=== PATIENT | female | born 1970 | race Caucasian/White ===

== ENCOUNTER 2020-07-16 06:57 | Outpatient (NON) | payer MEDICARE, MEDICAID, SELFPAY ==
[2020-07-16 16:58] LABS: Influenza Control Positive
[2020-07-17 12:24] LABS: SARS-CoV-2 RNA PCR Negative
== END 2020-07-16 06:58 ==
LOC: ANHCOVIDDT 07:11
PROVIDERS: PCP Family Medicine; Visit Provider Nurse Practitioner Family
DX: R68.89 Other general symptoms and signs (principal); R09.81 Nasal congestion; Z20.828 Contact with and (suspected) exposure to other viral communicable diseases
CPT/HCPCS: 87635; 87804; C9803; U0003

== ENCOUNTER → 2021-02-01 01:17 | Outpatient (CLI) | payer MEDICARE, MEDICAID, SELFPAY ==
[2021-02-03 15:56] LABS: SARS-CoV-2 RNA PCR Positive
== END ==
PROVIDERS: PCP Family Medicine; Visit Provider Surgery Plastic and Reconstructive Surgery
DX: U07.1 COVID-19 (principal)
CPT/HCPCS: C9803; U0003; U0005

== ENCOUNTER 2021-02-07 19:06 | Inpatient (IN) | payer MEDICARE, MEDICAID, SELFPAY ==
[2021-02-07] VITALS (14 sets, daily range): BP systolic 97–114; BP diastolic 56–76; PULSE 74–102; RESP 16–30; TEMP 36.4–39.2; O2SAT 90–93; BMI 30.7
--- NOTE | ~2021-02-07 | CT_ITS ---
EXAMINATION: CTA chest PE protocol DATE: 02/07/2021 22:13 CDT INDICATION: Covid positive. Dyspnea. Cough. Congestion. TECHNIQUE: Computed tomographic angiography (CTA) of the chest was performed with 100 mL Omnipaque-35 0 intravenous contrast. The dose-length product was 325.49 mGy-cm. Maximum intensity projection 3D-re constructions of the aorta and other arteries were constructed by the technologist on a separate work station. Automated exposure control and iterative reconstruction technique were employed. COMPARISON: None. FINDINGS: Cardiomegaly. No significant pleural or pericardial effusion. No large central pulmonary em bolism. Evaluation of peripheral pulmonary arteries limited by extensive airspace disease, contrast t iming and motion artifact. No thoracic lymphadenopathy. Upper abdomen is unremarkable. Extensive patc hy groundglass opacification throughout both lungs, most likely pneumonia given the clinical history. There are spinal rods in the thoracic spine. There is a burst fracture of a mid thoracic vertebra, l ikely chronic. IMPRESSION: 1. No large central pulmonary embolism. Evaluation of the peripheral pulmonary arteries limited. 2: Extensive bilateral groundglass opacification and airspace consolidation, consistent with pneumon ia. 3: Cardiomegaly. Reviewed, dictated and finalized at location A. IMPRESSION: 1. No large central pulmonary embolism. Evaluation of the peripheral pulmonary arteries limited. 2: Extensive bilateral groundglass opacification and airspace consolidation, c onsistent with pneumonia. 3: Cardiomegaly.
--- NOTE | ~2021-02-07 | XR_ITS ---
XR chest 1V portable 02/07/2021 19:48 Indication: Shortness of breath, cough. Covid positive. Low oxygen saturation. Procedure: AP portable chest Comparison: Comparison to multiple prior studies sequentially, with oldest reviewed study dated 12/2014. Findings: Diffuse bilateral airspace disease. Cardiomegaly. No significant effusion or pneumothorax. There are Bolton rods of the thoracic spine. No pneumothorax. No acute osseous abnormality. Impression: 1: Diffuse bilateral airspace disease which may represent pneumonia or edema. Reviewed, dictated and finalized at location A. Impression: 1: Diffuse bilateral airspace disease which may represent pneumonia or edema.
--- NOTE | ~2021-02-07 | XR_ITS ---
EXAMINATION: XR chest 1V portable INDICATION: Shortness of breath, COVID 19 TECHNIQUE: Portable AP chest at 0709 hours COMPARISON: 02/16/2021 FINDINGS: Diffuse airspace opacities persist in all lung zones with slight interval improvement. Ther e is no pleural effusion or pneumothorax. The cardiomediastinal silhouette is normal. Changes of cerv icothoracic fusion are noted. IMPRESSION: 1. Diffuse lung disease with interval improvement, consistent with pneumonia and/or pulmonary edema a nd/or acute respiratory distress syndrome (ARDS). Reviewed, dictated and finalized at location B. IMPRESSION: 1. Diffuse lung disease with interval improvement, consistent with pneumonia an d/or pulmonary edema and/or acute respiratory distress syndrome (ARDS).
--- NOTE | ~2021-02-07 | XR_ITS ---
EXAMINATION: XR chest 1V portable INDICATION: Shortness of breath TECHNIQUE: Portable AP chest at 0559 hours COMPARISON: 02/10/2021 FINDINGS: There are diffuse opacities throughout all lung zones which demonstrate interval worsening. No pleural effusion or pneumothorax is identified. The cardiomediastinal silhouette is stable. There is unchanged elevation of the left hemidiaphragm. There are changes of cervical through thoracic spi nal fusion. IMPRESSION: 1. Diffuse lung disease with interval worsening, consistent with pneumonia and/or pulmonary edema and /or acute respiratory distress syndrome (ARDS). Reviewed, dictated and finalized at location A. IMPRESSION: 1. Diffuse lung disease with interval worsening, consistent with pneumonia and/ or pulmonary edema and/or acute respiratory distress syndrome (ARDS).
--- NOTE | ~2021-02-07 | XR_ITS ---
EXAMINATION: XR chest 1V portable DATE: 02/10/2021 11:36 INDICATION: COVID positive TECHNIQUE: frontal view of the chest was obtained. COMPARISON: Chest radiograph dated 02/07/2021 FINDINGS: Unchanged elevation of the left hemidiaphragm. There are diffuse coarse reticular and mild patchy air space opacities throughout both lungs with lower lung predominance. No pneumothorax or pleural effusi on. Cardiomegaly. Instrumented posterior spinal fusion with bilateral vertical derek and pedicle screws extending from the lower thoracic spine and beyond the cephalad margin of the [id number] at the c ervicothoracic junction. There are also laminectomies and cerclage wires at the cervicothoracic junct ion. IMPRESSION: 1. Persistent diffuse bilateral interstitial and mild airspace opacities throughout both lungs which could represent COVID pneumonia, pulmonary edema or combination thereof. 2. Cardiomegaly. Reviewed, dictated and finalized at location A. IMPRESSION: 1. Persistent diffuse bilateral interstitial and mild airspace opacities throug hout both lungs which could represent COVID pneumonia, pulmonary edema or combi nation thereof. 2. Cardiomegaly.
--- NOTE | 2021-02-07 19:36 | ECG_ITS ---
Measurements Intervals Riva Rate: 87 P: 42 DE: 122 QRS: 41 QRSD: 105 T: 48 QT: 355 QTc: 427 Interpretive Statements SINUS RHYTHM EARLY PRECORDIAL R/S TRANSITION BORDERLINE ECG Electronically Signed On 02-08-2021 6:43:41 CDT by Prem Fairchild D.O.
--- NOTE | 2021-02-07 19:49 | ED.GENADULT ---
HPI - General Adult General Chief complaint: Upper Respiratory Infection Stated complaint: difficulty breathing Time Seen by Provider: 02/07/21 19:34 Source: RN notes reviewed History of Present Illness HPI narrative: Patient presents to emergency department from home via EMS for shortness of breath. Patient states that she began to feel short of breath yesterday states is progressively worsened and she has a home pulse ox that was noted to be in the 70s at home today patient states that she was possibly having a spot removed on her forehead and had a Covid test prior to this on 01 February and tested positive for Covid at that time she states she has not received any of the Covid vaccine she states that she began to run a fever today. Patient states shortness of breath is worse with movement she denies any chest pain abdominal pain nausea vomiting or any other symptoms Related Data Home Medications Medication Instructions Recorded Confirmed baclofen 20 mg tablet 20 mg PO TID tablet 06/22/19 01/15/21 gabapentin 300 mg capsule 300 mg PO TID 06/22/19 01/15/21 oxycodone myristate 9 mg capsule 9 mg PO BID 07/24/20 01/15/21 sprinkle extended release 12 hr(DON'T CRUSH) lubiprostone 24 mcg capsule 24 mcg PO BID 12/12/20 01/15/21 meloxicam 7.5 mg tablet 7.5 mg PO DAILY tablet 01/15/21 01/15/21 prazosin 1 mg capsule 1 mg PO DAILY cap 01/15/21 01/15/21 quetiapine 200 mg tablet 200 mg PO QHS tablet 01/15/21 01/15/21 Allergies Allergy/AdvReac Type Severity Reaction Status Date / Time amoxicillin Allergy Unknown Unknown Verified 02/05/21 15:29 codeine Allergy Unknown Unknown Verified 02/05/21 15:29 Penicillins Allergy Unknown RASH Verified 02/05/21 15:29 epinephrine AdvReac Unknown Other Verified 02/05/21 15:29 lidocaine AdvReac Other Verified 02/05/21 15:29 Review of Systems Review of Systems: Narrative: Gen.: Reports fever ENT: Denies congestion Respiratory: See HPI CV: Denies chest pain or palpitations GI: Denies abdominal pain nausea, emesis or diarrhea Musculoskeletal: Denies back pain or muscle pain Neuro: Denies numbness, tingling, weakness or focal weakness Skin: Denies rash Except as documented, all other systems reviewed and negative [facility] Past Medical History Medical History (Updated 02/07/21 @ 23:04 by Sanju Cho DO) BMI 31.0-31.9,adult BMI 32.0-32.9,adult BMI 33.0-33.9,adult BMI 34.0-34.9,adult Migraines Osteoarthritis of left hip Surgical History Surgical History History of knee surgery R - 2009 L - 2007 History of oral surgery 2013 History of spinal surgery 2012, 2014 Family History Family History Mother Hypertension Heart disease Grandparent Family history of lung cancer Father Family history of malignant neoplasm of thyroid Heart disease Family history of lung cancer Acute myocardial infarction Sibling No problems noted. 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 ABDOMINAL: Soft, nontender, nondistended, no rebound or
[2021-02-07] MEDS: ACETAMINOPHEN 500 MG TABLET 1000 MG PO (19:56)
[2021-02-07] MEDS: ALBUTEROL SULFATE (*SP) AEROSOL 1 PUFF 2 PUFF INHALATION (20:04)
[2021-02-07 20:19] LABS: Basophils Percent Auto 0.2 % (0.2-1.2); Hematocrit 41.2 % (37.0-47.0); Hemoglobin 13.4 g/dL (12.0-15.0); Immature Granulocyte Absolute 0.02 K/mm3 (0.00-0.031); Immature Granulocyte Percent A 0.5 % (0-0.5); Lymphocytes Absolute Auto 0.83 K/mm3 (0.9-3.2); Lymphocytes Percent Auto 20.6 % (18.3-44.2); Mean Corpuscular HGB Conc 32.5 g/dl (32-36); Mean Corpuscular Hemoglobin 31.2 pg (26-34); Mean Corpuscular Volume 95.8 fl (80-100); Mean Platelet Volume 9.2 fl (7.4-10.4); Monocytes Absolute Auto 0.3 K/mm3 (0.1-0.6); Monocytes Percent Auto 6.7 % (2.6-8.5); Neutrophils Absolute Auto 2.9 K/mm3 (1.3-6.7); Platelet Count Result 117 k/mm3 (150-375); Red Cell Distribution Width 13.2 % (11.5-14.5)
[2021-02-07] MEDS: DEXAMETHASONE SOD PHOS INJ 4 MG/ML VIAL 6 MG IV PUSH (20:21)
[2021-02-07 20:29] LABS: Lactic Acid Reflex 0.6 mmol/L (0.7-2.1)
[2021-02-07 20:30] LABS: Alanine Aminotransferase 18 U/L (4-35); Alkaline Phosphatase 62 U/L (38-126); Anion Gap 9 mmol/L (8-16); Aspartate Amino Transferase 41 U/L (14-36); Bilirubin,Total 0.3 mg/dL (0.2-1.3); Blood Urea Nitrogen 11 mg/dL (7-17); Calcium 8.5 mg/dL (8.4-10.2); Carbon Dioxide 24 mmol/L (22-30); Chloride 105 mmol/L (98-107); Estimated CRCL calculation 96 ml/min; Estimated Glomerular Filt Rate > 60; Glucose 89 mg/dL (65-105); Potassium 3.7 mmol/L (3.4-5.0); Sodium 138 mmol/L (137-145)
[2021-02-07 22:39] LABS: INR 1.1; Prothrombin Time 13.8 Seconds (11.1-14.7)
[2021-02-07 22:40] LABS: Partial Thromboplastin Time 28.9 SECONDS (22.3-36.8)
[2021-02-07 22:42] LABS: D Dimer 0.82 ug/mL (<0.48)
[2021-02-07 23:07] LABS: Alanine Aminotransferase 18 U/L (4-35)
--- NOTE | 2021-02-07 23:47 | ADMGEN ---
This patient, Lakeisha Alejandra, was admitted to [facility] Surg Room 330-01. Patient/family oriented to hospital policies and general routines including ID bracelet, bed and alarms, visiting hours, pain management, procedures, bathroom and other care routines, personal items, smoking policy, room service/diet, and visiting hours. Information on how to activate the Rapid Response Team has been discussed. Patient/Family are encouraged to report perceived risks to care and to ask questions if they do not understand what they are told or what they should do.
[2021-02-08] VITALS (11 sets, daily range): BP systolic 93–104; BP diastolic 53–70; PULSE 66–103; RESP 18–22; TEMP 36.2–37.4; O2SAT 89–97
[2021-02-08] MEDS: REMDESIVIR 200 MG/NS 250 ML 200 MG/250 ML BAG 250 MG IVPB (01:18)
[2021-02-08 06:14] LABS: Hematocrit 43.3 % (37.0-47.0); Immature Granulocyte Absolute 0.01 K/mm3 (0.00-0.031); Immature Granulocyte Percent A 0.3 % (0-0.5); Lymphocytes Absolute Auto 0.71 K/mm3 (0.9-3.2); Lymphocytes Percent Auto 21.8 % (18.3-44.2); Mean Corpuscular HGB Conc 32.3 g/dl (32-36); Mean Corpuscular Hemoglobin 31.5 pg (26-34); Mean Corpuscular Volume 97.5 fl (80-100); Mean Platelet Volume 9.2 fl (7.4-10.4); Monocytes Absolute Auto 0.2 K/mm3 (0.1-0.6); Monocytes Percent Auto 6.1 % (2.6-8.5); Neutrophils Absolute Auto 2.3 K/mm3 (1.3-6.7); Neutrophils Percent Auto 71.8 % (45.5-73.1); Platelet Count Result 118 k/mm3 (150-375); Red Blood Count 4.44 M/mm3 (4.2-5.4); Red Cell Distribution Width 13.3 % (11.5-14.5); White Blood Count 3.3 K/mm3 (4.5-10.0)
[2021-02-08 06:22] LABS: INR 1.1
[2021-02-08 06:55] LABS: Alanine Aminotransferase 18 U/L (4-35); Albumin Level 4.3 g/dL (3.5-5.1); Alkaline Phosphatase 56 U/L (38-126); Anion Gap 10 mmol/L (8-16); Aspartate Amino Transferase 38 U/L (14-36); Bilirubin,Total 0.3 mg/dL (0.2-1.3); Blood Urea Nitrogen 12 mg/dL (7-17); Calcium 9.2 mg/dL (8.4-10.2); Carbon Dioxide 27 mmol/L (22-30); Chloride 103 mmol/L (98-107); Estimated CRCL calculation 93 ml/min; Estimated Glomerular Filt Rate > 60; Glucose 118 mg/dL (65-105); Potassium 5.4 mmol/L (3.4-5.0); Sodium 140 mmol/L (137-145)
--- NOTE | 2021-02-08 09:46 | PM.IMHP ---
H&P: HPI History of Present Illness Date/Time: 02/08/21 09:46 Chief Complaint: SOB, hypoxia Narrative: Pt is a 50-year-old female with a history of COPD, chronic narcotic use due to chronic back pain, PTSD, and GERD who presented emergency room for shortness of breath and hypoxia noted at home. Patient states she had plans to have a procedure on Wednesday and had a routine COVID-19 test Wednesday02/01/21 which became positive. At that time she had no symptoms but developed symptoms on 02/06/21. she started having fevers up to 101, shortness of breath, cough and she had a pulse ox at home which was reading 79 which prompted her to come into the emergency room. She has been feeling malaise and worn out but is eating and drinking well. She has her taste and smell. She has not been around any sick contacts but was on vaccinated. She denies diarrhea, chest pain, nausea, vomiting, leg swelling, rashes or wounds. She has chronic back pain that she rates a 9/10 due to missing some of her medications. She says she has not had her narcotics in 24 hours. She has had narcotics on and off for 8 years due to her back pain. She has a history of a spinal fusion which causes her to have pain and is on disability for such. She was last on antibiotics last month due to pneumonia and has not had any since. Review of Systems Review of Systems: All systems reviewed & are unremarkable except as noted in HPI and below PMFSH Past Medical History Medical History (Updated 02/08/21 @ 10:18 by Ivon Prieto PA-C) BMI 31.0-31.9,adult BMI 32.0-32.9,adult BMI 33.0-33.9,adult BMI 34.0-34.9,adult COPD mixed type Migraines Osteoarthritis of left hip PTSD (post-traumatic stress disorder) Surgical History Surgical History History of knee surgery R - 2008 L - 2007 History of oral surgery 2013 History of spinal surgery 2012, 2014 Family History Family History Mother Hypertension Heart disease Grandparent Family history of lung cancer Father Family history of malignant neoplasm of thyroid Heart disease Family history of lung cancer Acute myocardial infarction Sibling No problems noted. Other Family history of arthritis Family history of cardiovascular disease Family history of malignant neoplasm of breast Unknown family medical history Social History Social History (Updated 02/08/21 @ 10:14 by Ivon Prieto PA-C) Social History: patient is a former smoker and quit 23 years ago after about 10 years of smoking. She does not do marijuana, drugs or alcohol. She is on disability due to her back pain. She would like her son, Armando, to be her surrogate decision maker if needed. She would like to be a full code. 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 by the patient): Female Spiritual care concerns: No Meds Home Medications and Allergies Home Medications Medication Instructions Recorded Confirmed Type baclofen 20 mg tablet 20 mg PO TID tablet 06/22/19 02/08/21 History gabapentin 300 mg capsule 300 mg PO TID 06/22/19 02/08/21 History inhalational spacing device #1 each 07/19/19 02/08/21 Rx bupropion HCl 150 mg 24 hr tablet, 150 mg PO QAM #1 tablet 11/02/19 02/08/21 Rx extended release escitalopram oxalate 20 mg tablet 20 mg PO DAILY #1 tablet 11/02/19 02/08/21 Rx spironolactone 25 mg tablet 25 mg PO DAILY #90 tablet 04/01/20 02/08/21 Rx oxycodone myristate 9 mg capsule 9 mg PO BID 07/24/20 02/08/21 History sprinkle extended release 12 hr(DON'T CRUSH)
[2021-02-08] MEDS: DEXAMETHASONE 2 MG TABLET 6 MG PO (09:59)
[2021-02-08] MEDS: BACLOFEN 10 MG TABLET 20 MG PO (10:00)
[2021-02-08] MEDS: ESCITALOPRAM OXALATE 10 MG TABLET 20 MG PO (11:35)
[2021-02-08] MEDS: ENOXAPARIN 40 MG/0.4 ML SYRINGE SUB-Q ×2 (11:35→22:09)
[2021-02-08] MEDS: PRAZOSIN HCL 1 MG CAPSULE PO (11:36)
[2021-02-08] MEDS: LUBIPROSTONE 24 MCG CAPSULE PO (11:36)
[2021-02-08] MEDS: FUROSEMIDE 20 MG TABLET PO (11:36)
[2021-02-08] MEDS: buPROPion HCL XL (24 HR) 150 MG TABCR PO (11:36)
[2021-02-08] MEDS: PANTOPRAZOLE 40 MG TABLET PO (11:37)
[2021-02-08] MEDS: FLUTICASONE/UMECLIDIN/VILANTER 200-62.5-25 MCG ELLIPTA 1 PUFF INHALATION (11:37)
[2021-02-08] MEDS: oxyCODONE HCL (*CRX) 5 MG TAB IR PO ×3 (11:50→23:35)
[2021-02-08 13:07] LABS: Anion Gap 11 mmol/L (8-16); Blood Urea Nitrogen 13 mg/dL (7-17); Calcium 9.6 mg/dL (8.4-10.2); Carbon Dioxide 24 mmol/L (22-30); Chloride 102 mmol/L (98-107); Estimated CRCL calculation 109 ml/min; Estimated Glomerular Filt Rate > 60; Glucose 106 mg/dL (65-105); Potassium 4.4 mmol/L (3.4-5.0); Sodium 137 mmol/L (137-145)
[2021-02-08] MEDS: GABAPENTIN 300 MG CAPSULE PO ×2 (14:42→22:08)
[2021-02-08] MEDS: SODIUM CHLORIDE 0.9% IV 250 ML 30 ML IV CONT (20:30)
[2021-02-08] MEDS: TUBING, BLOOD PLUM PUMP TUBING 1 EACH XX (20:35)
[2021-02-08] MEDS: REMDESIVIR 100 MG/NS 250 ML 100 MG/250 ML BAG 250 MG IVPB (22:08)
[2021-02-08] MEDS: QUEtiapine FUMARATE 100 MG TABLET 200 MG PO (22:09)
[2021-02-09] VITALS (8 sets, daily range): BP systolic 90–103; BP diastolic 54–68; PULSE 63–80; RESP 16–20; TEMP 36.1–37.2; O2SAT 88–96
--- NOTE | 2021-02-09 02:12 | PCRCNOTE ---
Pt refuses BiPAP at this time, she states she will have a family member bring her unit in tomorrow.
[2021-02-09] MEDS: oxyCODONE HCL (*CRX) 5 MG TAB IR PO ×4 (06:21→23:09)
[2021-02-09] MEDS: GABAPENTIN 300 MG CAPSULE PO ×3 (06:21→21:35)
[2021-02-09 07:23] LABS: Hematocrit 39.7 % (37.0-47.0); Hemoglobin 13.1 g/dL (12.0-15.0); Immature Platelet Fraction Pct 1.9 % (0.9-11.2); Mean Corpuscular Volume 93.9 fl (80-100); Mean Platelet Volume 9.6 fl (7.4-10.4); Platelet Count Result 141 k/mm3 (150-375); Red Blood Count 4.23 M/mm3 (4.2-5.4); Red Cell Distribution Width 13.2 % (11.5-14.5); White Blood Count 6.6 K/mm3 (4.5-10.0)
[2021-02-09 07:33] LABS: INR 1.1; Prothrombin Time 13.8 Seconds (11.1-14.7)
[2021-02-09 07:41] LABS: D Dimer 0.48 ug/mL (<0.48)
[2021-02-09 07:51] LABS: Alanine Aminotransferase 17 U/L (4-35); Albumin Level 3.9 g/dL (3.5-5.1); Alkaline Phosphatase 55 U/L (38-126); Anion Gap 9 mmol/L (8-16); Aspartate Amino Transferase 37 U/L (14-36); Bilirubin,Total 0.4 mg/dL (0.2-1.3); Blood Urea Nitrogen 14 mg/dL (7-17); CRP 5.2 mg/dL (<1.0); Calcium 8.9 mg/dL (8.4-10.2); Carbon Dioxide 25 mmol/L (22-30); Chloride 104 mmol/L (98-107); Estimated CRCL calculation 109 ml/min; Estimated Glomerular Filt Rate > 60; Glucose 82 mg/dL (65-105); Lactate Dehydrogenase 1120 U/L (313-618); Potassium 3.6 mmol/L (3.4-5.0); Sodium 138 mmol/L (137-145)
[2021-02-09] MEDS: DEXAMETHASONE 2 MG TABLET 6 MG PO (08:19)
[2021-02-09] MEDS: buPROPion HCL XL (24 HR) 150 MG TABCR PO (08:19)
[2021-02-09] MEDS: FUROSEMIDE 20 MG TABLET PO (08:19)
[2021-02-09] MEDS: ENOXAPARIN 40 MG/0.4 ML SYRINGE SUB-Q ×2 (08:20→21:36)
[2021-02-09] MEDS: ESCITALOPRAM OXALATE 10 MG TABLET 20 MG PO (08:20)
[2021-02-09] MEDS: PRAZOSIN HCL 1 MG CAPSULE PO (08:21)
[2021-02-09] MEDS: PANTOPRAZOLE 40 MG TABLET PO (08:21)
[2021-02-09] MEDS: FLUTICASONE/UMECLIDIN/VILANTER 200-62.5-25 MCG ELLIPTA 1 PUFF INHALATION (08:23)
[2021-02-09] MEDS: SUMAtriptan SUCCINATE 25 MG TABLET 50 MG PO (11:00)
--- NOTE | 2021-02-09 14:10 | PM.IMPN ---
Progress Note: A&P Assessment and Plan (1) Pneumonia due to COVID-19 virus: Code(s): U07.1 - COVID-19; J12.82 - Pneumonia due to coronavirus disease 2019 Status: Acute Assessment and Plan: Pt tested positive for COVID 02/01/21 as a routine screening for a procedure and then began feeling SOB 02/06/21 -Will continue remdesivir, dexamethasone, and lovenox - she is currently on 7 L high-flow satting 90%. -Continue o2 for sats <90 as well as albuterol - convalescent plasma given 02/08/21 -Pt unvaccinated -CTA showing bilateral PNA, no PE -Monitor inflammatory markers - antibiotics stopped, no signs of bacterial PNA and pt just had Levaquin last month (2) Acute respiratory failure with hypoxia: Code(s): J96.01 - Acute respiratory failure with hypoxia Status: Acute Assessment and Plan: 2/2 to above -continue o2 (3) Hyperkalemia: Code(s): E87.5 - Hyperkalemia Status: Acute Assessment and Plan: resolved -hold spironolactone and daily potassium -tele discontinued (4) Transaminitis: Code(s): R74.01 - Elevation of levels of liver transaminase levels Status: Acute Assessment and Plan: Likely due to COVID -monitor while on remdesivir (5) Leukopenia: Code(s): D72.819 - Decreased white blood cell count, unspecified Status: Acute Assessment and Plan: 2/2 to above -monitor (6) Chronic narcotic use: Code(s): F11.90 - Opioid use, unspecified, uncomplicated Status: Acute Assessment and Plan: Pt taxes Xtampza which is equivlent to 5mg Oxycodone IR Q6 hours for her chronic pack pain -Continue with that -provide narcan PRN (7) Osteoma of face: Code(s): D16.4 - Benign neoplasm of bones of skull and face Status: Acute Assessment and Plan: f/u with Dr. Varner (8) COPD mixed type: Code(s): J44.9 - Chronic obstructive pulmonary disease, unspecified Status: Acute Assessment and Plan: With exacerbation -Continue with trelegy, PRN albuterol and steroids (9) Cardiomegaly: Code(s): I51.7 - Cardiomegaly Status: Acute Assessment and Plan: Noted on imaging, no signs of active CHF -f/u with pcp for echo if she hasn't had one recently (10) Hypotension: Code(s): I95.9 - Hypotension, unspecified Status: Acute Assessment and Plan: last blood pressure 90/40 but patient feeling much better than yesterday. With her having COVID, I want to avoid ARDS some going to hold off on fluids at this time. If she becomes symptomatic or drops lower, we could start fluids then. She also is on narcotics which are chronic for her. I don't think this indicates worsening infection. She also runs on the lower end. Will continue to monitor Time Spent With Patient Time with patient: 25 - 35 minutes Subjective Date/time seen: 02/09/21 14:10 Interval history: Pt is a 50 y/o female here for COVID PNA. Patient was seen today states she feels better today than she did yesterday. She said her cough has improved and she is coughing stuff up now which makes her feel better. She has no shortness of breath at rest but has not really moved very much. She has no nausea or vomiting and has not had diarrhea today which is an improvement. she has no chest pain Review of Systems Review of Systems: All systems reviewed & are unremarkable except as noted in HPI and below Exam Narrative: Exam Narrative: General:Well developed well nourished patient HEENT: Normocephalic, atraumatic, PERRL, Sclerae anicteric, oral mucosa moist. NC applied Neck: Supple Resp: CTA, no wheezing or ronchi. no conversational dyspnea or retractions Heart: RRR with no murmurs. telemetry shows normal sinus rhythm Abd: Soft, nontender. No pain to palpation. Positive bowel sounds Skin: Warm and dry Extremities: No swelling, erythema or pain to palpation
[2021-02-09] MEDS: BACLOFEN 10 MG TABLET 20 MG PO (14:57)
[2021-02-09 15:37] LABS: Alveolar/Arterial O2 Gradient 474.9 mmHg; Carboxyhemoglobin 0.2 % THb (0-2.0); Fractional Inspired Oxygen 80 %; HCO3 ABG 25.4 mEq/l (22.0-26.0); Methemoglobin ABG 0.4 %THb (0-1.5); Oxygen Content ABG 18.7 %vol (16.0-22.0); Oxygen Saturation ABG 91.8 % (95.0-100.0); Oxyhemoglobin 90.7 % THb (90.0-100.0); PCO2 ABG 35.9 mmHg (35.0-45.0); PO2 ABG 57.8 mmHg (80.0-100.0); PO2 FiO2 Ratio Arterial Blood 0.72 %; Reduced Hemoglobin 8.7 %THb (0-5.0); Total Hemoglobin 14.7 g/dL (12.0-18.0); pH ABG 7.468 (7.350-7.450)
[2021-02-09 15:38] LABS: Device HIGH FLOW NASAL CANN; Modified Allen's Test Pass; Site Drawn RIGHT RADIAL
[2021-02-09] MEDS: QUEtiapine FUMARATE 100 MG TABLET 200 MG PO (21:35)
[2021-02-09] MEDS: REMDESIVIR 100 MG/NS 250 ML 100 MG/250 ML BAG 250 MG IVPB (21:36)
--- NOTE | 2021-02-09 23:49 | PCRCNOTE ---
Pt placed on Vision CPAP 7, Fi02 80%, sp02 94%, due to increased oxygen demand while on 15 liters HFNC. RT spot checked pt during CPAP rounds, pt found on HFNC 15 L, Sp02 84%. Pt stated she wears CPAP at home setting unknown without oxygen.RT notified RN due increased oxygen demand. MD called twice. animal control supervisor contacted about pt increased oxygen demand.
[2021-02-10] VITALS (24 sets, daily range): BP systolic 94–105; BP diastolic 49–63; PULSE 57–97; RESP 16–22; TEMP 36.1–36.6; O2SAT 90–99
[2021-02-10 05:13] LABS: Hematocrit 39.2 % (37.0-47.0); Mean Corpuscular HGB Conc 33.2 g/dl (32-36); Mean Corpuscular Hemoglobin 31.3 pg (26-34); Mean Corpuscular Volume 94.5 fl (80-100); Mean Platelet Volume 9.6 fl (7.4-10.4); Platelet Count Result 154 k/mm3 (150-375); Red Blood Count 4.15 M/mm3 (4.2-5.4); White Blood Count 7.4 K/mm3 (4.5-10.0)
[2021-02-10 05:24] LABS: Alanine Aminotransferase 20 U/L (4-35); Anion Gap 7 mmol/L (8-16); Blood Urea Nitrogen 12 mg/dL (7-17); Calcium 8.7 mg/dL (8.4-10.2); Carbon Dioxide 28 mmol/L (22-30); Chloride 106 mmol/L (98-107); Estimated CRCL calculation 109 ml/min; Estimated Glomerular Filt Rate > 60; Glucose 86 mg/dL (65-105); Potassium 3.5 mmol/L (3.4-5.0); Sodium 141 mmol/L (137-145)
[2021-02-10 05:28] LABS: INR 1.1; Prothrombin Time 14.3 Seconds (11.1-14.7)
[2021-02-10] MEDS: GABAPENTIN 300 MG CAPSULE PO ×3 (06:32→20:26)
[2021-02-10] MEDS: oxyCODONE HCL (*CRX) 5 MG TAB IR PO ×4 (06:32→23:50)
[2021-02-10] MEDS: IPRATROPIUM BR 0.02% INH SOLN 0.5 MG/2.5 ML VIAL INHALATION ×3 (08:20→20:30)
[2021-02-10] MEDS: FLUTICASONE/UMECLIDIN/VILANTER 200-62.5-25 MCG ELLIPTA 1 PUFF INHALATION (08:20)
[2021-02-10] MEDS: ALBUTEROL SULFATE NEB 2.5 MG/0.5 ML INH 5 MG INHALATION ×3 (08:20→20:29)
[2021-02-10] MEDS: PANTOPRAZOLE 40 MG TABLET PO (09:17)
[2021-02-10] MEDS: ENOXAPARIN 40 MG/0.4 ML SYRINGE SUB-Q ×2 (09:17→20:26)
[2021-02-10] MEDS: PRAZOSIN HCL 1 MG CAPSULE PO (09:17)
[2021-02-10] MEDS: LUBIPROSTONE 24 MCG CAPSULE PO ×2 (09:17→16:48)
[2021-02-10] MEDS: DEXAMETHASONE 2 MG TABLET 6 MG PO (09:17)
[2021-02-10] MEDS: ESCITALOPRAM OXALATE 10 MG TABLET 20 MG PO (09:17)
[2021-02-10] MEDS: buPROPion HCL XL (24 HR) 150 MG TABCR PO (09:17)
[2021-02-10] MEDS: FUROSEMIDE 20 MG TABLET PO (09:17)
[2021-02-10 10:46] LABS: Alveolar/Arterial O2 Gradient 419.2 mmHg; Carboxyhemoglobin 0.2 % THb (0-2.0); Fractional Inspired Oxygen 80 %; HCO3 ABG 25.8 mEq/l (22.0-26.0); Methemoglobin ABG 0.4 %THb (0-1.5); Oxygen Content ABG 19.5 %vol (16.0-22.0); Oxyhemoglobin 96.9 % THb (90.0-100.0); PCO2 ABG 41.5 mmHg (35.0-45.0); PO2 ABG 107.6 mmHg (80.0-100.0); PO2 FiO2 Ratio Arterial Blood 1.35 %; Reduced Hemoglobin 2.5 %THb (0-5.0); Total Hemoglobin 14.2 g/dL (12.0-18.0); pH ABG 7.411 (7.350-7.450)
[2021-02-10 10:47] LABS: Modified Allen's Test Pass; Site Drawn LEFT RADIAL
[2021-02-10] MEDS: SUMAtriptan SUCCINATE 25 MG TABLET 50 MG PO (10:48)
[2021-02-10 10:51] LABS: Device NON-INVASIVE VENT; Expiratory Pressure 7 cmH2O
--- NOTE | 2021-02-10 17:16 | PM.IMPN ---
Progress Note: A&P Assessment and Plan (1) Pneumonia due to COVID-19 virus: Code(s): U07.1 - COVID-19; J12.82 - Pneumonia due to coronavirus disease 2019 Status: Acute Assessment and Plan: Pt tested positive for COVID 02/01/21 as a routine screening for a procedure and then began feeling SOB 02/06/21 -Will continue remdesivir, dexamethasone, and lovenox - she is utilizing her cpap and at 93%-100% -abg today shows no hypoxia this AM and was 80%Fio2. She was decreased to 60% off and I spoke with respiratory who is going to continue to wean. -Continue o2 for sats <90 as well as albuterol - convalescent plasma given 02/08/21 -Pt unvaccinated -CTA showing bilateral PNA, no PE -CXR 02/10/21 showing diffuse airpace dz likely COVID -Monitor inflammatory markers - antibiotics stopped, no signs of bacterial PNA and pt just had Levaquin last month (2) Acute respiratory failure with hypoxia: Code(s): J96.01 - Acute respiratory failure with hypoxia Status: Acute Assessment and Plan: 2/2 to above -continue o2 (3) Hyperkalemia: Code(s): E87.5 - Hyperkalemia Status: Acute Assessment and Plan: resolved -hold spironolactone and daily potassium (4) Transaminitis: Code(s): R74.01 - Elevation of levels of liver transaminase levels Status: Acute Assessment and Plan: trending down, likely due to COVID -monitor while on remdesivir (5) Leukopenia: Code(s): D72.819 - Decreased white blood cell count, unspecified Status: Acute Assessment and Plan: resolved (likely due to steroids) -suspect due to viral infection -monitor (6) Chronic narcotic use: Code(s): F11.90 - Opioid use, unspecified, uncomplicated Status: Acute Assessment and Plan: Pt taxes Xtampza which is equivlent to 5mg Oxycodone IR Q6 hours for her chronic pack pain -Continue with that -provide narcan PRN (7) Osteoma of face: Code(s): D16.4 - Benign neoplasm of bones of skull and face Status: Acute Assessment and Plan: f/u with Dr. Varner (8) COPD mixed type: Code(s): J44.9 - Chronic obstructive pulmonary disease, unspecified Status: Acute Assessment and Plan: With exacerbation -Continue with trelegy, PRN albuterol and steroids (9) Cardiomegaly: Code(s): I51.7 - Cardiomegaly Status: Acute Assessment and Plan: Noted on imaging, no signs of active CHF -f/u with pcp for echo if she hasn't had one recently (10) Hypotension: Code(s): I95.9 - Hypotension, unspecified Status: Acute Assessment and Plan: Improving, last bp 102/63. No patient complaints. With her having COVID, I want to avoid ARDS, hold off on fluids at this time. If she becomes symptomatic or drops lower, we could start fluids then. She is also on narcotics which are chronic for her. I don't think this indicates worsening infection. She also runs on the lower end. Will continue to monitor Subjective Date/time seen: 02/10/21 17:16 Interval history: Pt is a 50 y/o female here for COVID PNA. Patient was seen today states she feels fine. She only has SOB when she is moving. She said her cough has improved and she is coughing stuff up now which makes her feel better. She has no nausea or vomiting. Diarrhea improved. she has no chest pain Exam Narrative: Exam Narrative: General:Well developed well nourished patient HEENT: Normocephalic, atraumatic, PERRL, Sclerae anicteric, oral mucosa moist. bipap applied Neck: Supple Resp: Crackles at baseline. no wheezing or rhonchi. no conversational dyspnea or retractions Heart: RRR with no murmurs. telemetry shows normal sinus rhythm Abd: Soft, nontender. No pain to palpation. Positive bowel sounds Skin: Warm and dry Extremities: No swelling, erythema or pain to palpation Neuro: Alert and Oriented x4 . CN 2-12 intact. No foc
[2021-02-10] MEDS: QUEtiapine FUMARATE 100 MG TABLET 200 MG PO (20:25)
[2021-02-10] MEDS: REMDESIVIR 100 MG/NS 250 ML 100 MG/250 ML BAG 250 MG IVPB (20:26)
[2021-02-11] VITALS (25 sets, daily range): BP systolic 91–106; BP diastolic 46–66; PULSE 56–95; RESP 18–29; TEMP 36.1–36.9; O2SAT 87–95
[2021-02-11] MEDS: ALBUTEROL SULFATE NEB 2.5 MG/0.5 ML INH 5 MG INHALATION ×4 (02:59→20:59)
[2021-02-11] MEDS: IPRATROPIUM BR 0.02% INH SOLN 0.5 MG/2.5 ML VIAL INHALATION ×4 (03:00→20:59)
[2021-02-11 05:04] LABS: Hematocrit 39.6 % (37.0-47.0); Hemoglobin 13.2 g/dL (12.0-15.0); Immature Granulocyte Absolute 0.02 K/mm3 (0.00-0.031); Immature Granulocyte Percent A 0.3 % (0-0.5); Lymphocytes Absolute Auto 0.97 K/mm3 (0.9-3.2); Lymphocytes Percent Auto 15.8 % (18.3-44.2); Mean Corpuscular HGB Conc 33.3 g/dl (32-36); Mean Corpuscular Hemoglobin 31.7 pg (26-34); Mean Platelet Volume 9.3 fl (7.4-10.4); Monocytes Absolute Auto 0.4 K/mm3 (0.1-0.6); Monocytes Percent Auto 6.7 % (2.6-8.5); Neutrophils Absolute Auto 4.7 K/mm3 (1.3-6.7); Neutrophils Percent Auto 77.2 % (45.5-73.1); Platelet Count Result 171 k/mm3 (150-375); Red Blood Count 4.17 M/mm3 (4.2-5.4); Red Cell Distribution Width 12.9 % (11.5-14.5); White Blood Count 6.1 K/mm3 (4.5-10.0)
[2021-02-11 05:25] LABS: Alanine Aminotransferase 20 U/L (4-35); Albumin Level 3.7 g/dL (3.5-5.1); Alkaline Phosphatase 55 U/L (38-126); Anion Gap 7 mmol/L (8-16); Aspartate Amino Transferase 31 U/L (14-36); Bilirubin,Total 0.6 mg/dL (0.2-1.3); Blood Urea Nitrogen 13 mg/dL (7-17); Carbon Dioxide 30 mmol/L (22-30); Chloride 101 mmol/L (98-107); Estimated CRCL calculation 109 ml/min; Estimated Glomerular Filt Rate > 60; Glucose 108 mg/dL (65-105); Lactate Dehydrogenase 1453 U/L (313-618); Potassium 3.6 mmol/L (3.4-5.0); Sodium 138 mmol/L (137-145)
[2021-02-11 05:38] LABS: CRP 13.3 mg/dL (<1.0); INR 1.1; Prothrombin Time 14.2 Seconds (11.1-14.7)
[2021-02-11] MEDS: GABAPENTIN 300 MG CAPSULE PO ×3 (06:11→20:55)
[2021-02-11] MEDS: oxyCODONE HCL (*CRX) 5 MG TAB IR PO ×3 (06:11→17:28)
[2021-02-11] MEDS: PANTOPRAZOLE 40 MG TABLET PO (09:08)
[2021-02-11] MEDS: buPROPion HCL XL (24 HR) 150 MG TABCR PO (09:08)
[2021-02-11] MEDS: DEXAMETHASONE 2 MG TABLET 6 MG PO (09:08)
[2021-02-11] MEDS: FUROSEMIDE 20 MG TABLET PO (09:08)
[2021-02-11] MEDS: PRAZOSIN HCL 1 MG CAPSULE PO (09:08)
[2021-02-11] MEDS: ESCITALOPRAM OXALATE 10 MG TABLET 20 MG PO (09:08)
[2021-02-11] MEDS: LUBIPROSTONE 24 MCG CAPSULE PO (09:09)
[2021-02-11] MEDS: ENOXAPARIN 40 MG/0.4 ML SYRINGE SUB-Q ×2 (09:09→20:55)
--- NOTE | 2021-02-11 11:19 | PM.IMPN ---
Progress Note: A&P Assessment and Plan (1) Pneumonia due to COVID-19 virus: Code(s): U07.1 - COVID-19; J12.82 - Pneumonia due to coronavirus disease 2019 Status: Acute Assessment and Plan: Pt tested positive for COVID 02/01/21 as a routine screening for a procedure and then began feeling SOB 02/06/21 -Will continue remdesivir, dexamethasone, and lovenox - she is utilizing her cpap and at 93%-100% -repeat abg, wean o2 depending on that -Continue o2 for sats <90 as well as albuterol - convalescent plasma given 02/08/21 -Pt unvaccinated -CTA showing bilateral PNA, no PE -CXR 02/10/21 showing diffuse airspace dz likely COVID -Monitor inflammatory markers - antibiotics stopped, no signs of bacterial PNA and pt just had Levaquin last month (2) Acute respiratory failure with hypoxia: Code(s): J96.01 - Acute respiratory failure with hypoxia Status: Acute Assessment and Plan: 2/2 to above -continue o2 (3) Hyperkalemia: Code(s): E87.5 - Hyperkalemia Status: Acute Assessment and Plan: resolved -hold spironolactone and daily potassium (4) Transaminitis: Code(s): R74.01 - Elevation of levels of liver transaminase levels Status: Acute Assessment and Plan: Normal 02/11/21 -monitor while on remdesivir (5) Leukopenia: Code(s): D72.819 - Decreased white blood cell count, unspecified Status: Acute Assessment and Plan: resolved (likely due to steroids) -suspect due to viral infection -monitor (6) Chronic narcotic use: Code(s): F11.90 - Opioid use, unspecified, uncomplicated Status: Acute Assessment and Plan: Pt taxes Xtampza which is equivlent to 5mg Oxycodone IR Q6 hours for her chronic pack pain -Continue with that -provide narcan PRN (7) Osteoma of face: Code(s): D16.4 - Benign neoplasm of bones of skull and face Status: Acute Assessment and Plan: f/u with Dr. Varner (8) COPD mixed type: Code(s): J44.9 - Chronic obstructive pulmonary disease, unspecified Status: Acute Assessment and Plan: With exacerbation -Continue with trelegy, PRN albuterol and steroids (9) Cardiomegaly: Code(s): I51.7 - Cardiomegaly Status: Acute Assessment and Plan: Noted on imaging, no signs of active CHF -f/u with pcp for echo if she hasn't had one recently (10) Hypotension: Code(s): I95.9 - Hypotension, unspecified Status: Acute Assessment and Plan: Improving, last bp 91/51. No patient complaints. With her having COVID, I want to avoid ARDS, hold off on fluids at this time. If she becomes symptomatic or drops lower, we could start fluids then. She is also on narcotics which are chronic for her. I don't think this indicates worsening infection. She also runs on the lower end. Will continue to monitor Subjective Date/time seen: 02/11/21 11:19 Interval history: Pt is a 50 y/o female here for COVID PNA. Patient was seen today states she feels fine with no changes form yesterday. She only has SOB when she is moving but hasn't been out of bed today. She said her cough has improved and she is coughing stuff up now which makes her feel better. She has no nausea or vomiting. Diarrhea improved. she has no chest pain. Exam Narrative: Exam Narrative: General:Well developed well nourished patient HEENT: Normocephalic, atraumatic, PERRL, Sclerae anicteric, oral mucosa moist. bipap applied Neck: Supple Resp: Crackles at baseline. no wheezing or rhonchi. no conversational dyspnea or retractions Heart: RRR with no murmurs. telemetry shows normal sinus rhythm with o2 from 87-96% Abd: Soft, nontender. No pain to palpation. Positive bowel sounds Skin: Warm and dry Extremities: No swelling, erythema or pain to palpation Neuro: Alert and Oriented x4 . CN 2-12 intact. No focal neurological deficits. Objective Da
[2021-02-11 11:39] LABS: Alveolar/Arterial O2 Gradient 238.2 mmHg; Base Excess ABG 3.8 mEq/l (+/-2.0); Carboxyhemoglobin 0.2 % THb (0-2.0); Device NON-INVASIVE VENT; Fractional Inspired Oxygen 50 %; HCO3 ABG 28.1 mEq/l (22.0-26.0); Methemoglobin ABG 0.5 %THb (0-1.5); Modified Allen's Test Pass; Oxygen Content ABG 19.2 %vol (16.0-22.0); Oxygen Saturation ABG 95.2 % (95.0-100.0); PCO2 ABG 41.1 mmHg (35.0-45.0); PO2 ABG 72.1 mmHg (80.0-100.0); PO2 FiO2 Ratio Arterial Blood 1.44 %; Reduced Hemoglobin 5.3 %THb (0-5.0); Site Drawn RIGHT RADIAL; Total Hemoglobin 14.5 g/dL (12.0-18.0); pH ABG 7.453 (7.350-7.450)
[2021-02-11 11:40] LABS: Non-Invasive Expiratory Pressure 7 CMH2O
[2021-02-11] MEDS: REMDESIVIR 100 MG/NS 250 ML 100 MG/250 ML BAG 250 MG IVPB (20:51)
[2021-02-11] MEDS: QUEtiapine FUMARATE 100 MG TABLET 200 MG PO (20:55)
[2021-02-12] VITALS (29 sets, daily range): BP systolic 91–102; BP diastolic 48–59; PULSE 59–91; RESP 14–24; TEMP 36.5–36.8; O2SAT 88–98
[2021-02-12] MEDS: IPRATROPIUM BR 0.02% INH SOLN 0.5 MG/2.5 ML VIAL INHALATION ×4 (03:27→21:05)
[2021-02-12] MEDS: ALBUTEROL SULFATE NEB 2.5 MG/0.5 ML INH 5 MG INHALATION ×4 (03:27→21:04)
[2021-02-12 05:42] LABS: Anion Gap 7 mmol/L (8-16); Blood Urea Nitrogen 13 mg/dL (7-17); CRP 8.8 mg/dL (<1.0); Calcium 9.2 mg/dL (8.4-10.2); Carbon Dioxide 30 mmol/L (22-30); Chloride 101 mmol/L (98-107); Estimated CRCL calculation 93 ml/min; Estimated Glomerular Filt Rate > 60; Glucose 105 mg/dL (65-105); Potassium 3.4 mmol/L (3.4-5.0); Sodium 138 mmol/L (137-145)
[2021-02-12] MEDS: oxyCODONE HCL (*CRX) 5 MG TAB IR PO ×3 (07:27→17:30)
[2021-02-12] MEDS: GABAPENTIN 300 MG CAPSULE PO ×3 (07:27→21:42)
[2021-02-12] MEDS: PRAZOSIN HCL 1 MG CAPSULE PO (09:01)
[2021-02-12] MEDS: LUBIPROSTONE 24 MCG CAPSULE PO ×2 (09:01→17:30)
[2021-02-12] MEDS: FUROSEMIDE 20 MG TABLET PO (09:01)
[2021-02-12] MEDS: ENOXAPARIN 40 MG/0.4 ML SYRINGE SUB-Q ×2 (09:01→21:42)
[2021-02-12] MEDS: buPROPion HCL XL (24 HR) 150 MG TABCR PO (09:01)
[2021-02-12] MEDS: ESCITALOPRAM OXALATE 10 MG TABLET 20 MG PO (09:01)
[2021-02-12] MEDS: PANTOPRAZOLE 40 MG TABLET PO (09:01)
[2021-02-12] MEDS: DEXAMETHASONE 2 MG TABLET 6 MG PO (09:01)
--- NOTE | 2021-02-12 14:42 | PM.IMPN ---
Progress Note: A&P Assessment and Plan (1) Pneumonia due to COVID-19 virus: Code(s): U07.1 - COVID-19; J12.82 - Pneumonia due to coronavirus disease 2019 Status: Acute Assessment and Plan: Pt tested positive for COVID 02/01/21 as a routine screening for a procedure and then began feeling SOB 02/06/21 -Will continue dexamethasone and lovenox. she finished her initial 5 days of Remdesivir but since she continues to be on a high level of o2 so I will continue remdesivir at this time for 5 additional doses. - she is utilizing her cpap and at 93%-100% when needed and at night -Continue o2 for sats <90 as well as albuterol - convalescent plasma given 02/08/21 -Pt unvaccinated -CTA showing bilateral PNA, no PE -CXR 02/10/21 showing diffuse airspace dz likely COVID -Monitor inflammatory markers - antibiotics stopped, no signs of bacterial PNA and pt just had Levaquin last month (2) Acute respiratory failure with hypoxia: Code(s): J96.01 - Acute respiratory failure with hypoxia Status: Acute Assessment and Plan: 2/2 to above -continue o2 (3) Hyperkalemia: Code(s): E87.5 - Hyperkalemia Status: Acute Assessment and Plan: resolved -hold spironolactone and daily potassium (4) Transaminitis: Code(s): R74.01 - Elevation of levels of liver transaminase levels Status: Acute Assessment and Plan: Normal 02/11/21 -monitor while on remdesivir (5) Leukopenia: Code(s): D72.819 - Decreased white blood cell count, unspecified Status: Acute Assessment and Plan: resolved -suspect due to viral infection -monitor (6) Chronic narcotic use: Code(s): F11.90 - Opioid use, unspecified, uncomplicated Status: Acute Assessment and Plan: Pt taxes Xtampza which is equivlent to 5mg Oxycodone IR Q6 hours for her chronic pack pain -Continue with that -provide narcan PRN (7) Osteoma of face: Code(s): D16.4 - Benign neoplasm of bones of skull and face Status: Acute Assessment and Plan: f/u with Dr. Varner (8) COPD mixed type: Code(s): J44.9 - Chronic obstructive pulmonary disease, unspecified Status: Acute Assessment and Plan: With exacerbation -Continue with trelegy, PRN albuterol and steroids (9) Cardiomegaly: Code(s): I51.7 - Cardiomegaly Status: Acute Assessment and Plan: Noted on imaging, no signs of active CHF -f/u with pcp for echo if she hasn't had one recently (10) Hypotension: Code(s): I95.9 - Hypotension, unspecified Status: Acute Assessment and Plan: Improving, last bp 102/48. No patient complaints. With her having COVID, I want to avoid ARDS, hold off on fluids at this time. If she becomes symptomatic or drops lower, we could start fluids then. She is also on narcotics which are chronic for her. I don't think this indicates worsening infection. She also runs on the lower end. Will continue to monitor Subjective Date/time seen: 02/12/21 14:42 Interval history: Pt is a 50 y/o female here for COVID PNA. patient was seen today and does on high-flow and off the CPAP. She said she had a coughing spell earlier and it took a while to recover but overall is feeling okay. She still gets short of breath with long conversations and she has not been out of bed because she drops with any movement. Other than that, she feels fine. She had a slight headache this morning that is dissipating. She is eating and drinking well. No nausea, vomiting, fevers, chills, diarrhea or constipation. Exam Narrative: Exam Narrative: General:Well developed well nourished patient HEENT: Normocephalic, atraumatic, PERRL, Sclerae anicteric, oral mucosa moist. Neck: Supple Resp: Crackles at baseline. no wheezing or rhonchi. no conversational dyspnea or retractions Heart: RRR with no murmurs. telemetry shows normal s
[2021-02-12 17:14] LABS: INR 1.1
[2021-02-12] MEDS: QUEtiapine FUMARATE 100 MG TABLET 200 MG PO (21:42)
[2021-02-12] MEDS: REMDESIVIR 100 MG/NS 250 ML 100 MG/250 ML BAG 250 MG IVPB (21:43)
[2021-02-13] VITALS (24 sets, daily range): BP systolic 84–107; BP diastolic 45–60; PULSE 63–101; RESP 16–23; TEMP 36.1–37.1; O2SAT 90–97
[2021-02-13] MEDS: GABAPENTIN 300 MG CAPSULE PO ×3 (04:57→21:02)
[2021-02-13] MEDS: oxyCODONE HCL (*CRX) 5 MG TAB IR PO ×2 (04:57→17:13)
[2021-02-13 05:16] LABS: Hematocrit 39.5 % (37.0-47.0); Hemoglobin 13.1 g/dL (12.0-15.0); Mean Corpuscular HGB Conc 33.2 g/dl (32-36); Mean Corpuscular Hemoglobin 31.3 pg (26-34); Mean Corpuscular Volume 94.3 fl (80-100); Platelet Count Result 246 k/mm3 (150-375); Red Blood Count 4.19 M/mm3 (4.2-5.4); Red Cell Distribution Width 12.9 % (11.5-14.5); White Blood Count 7.4 K/mm3 (4.5-10.0)
[2021-02-13 05:33] LABS: INR 1.2; Prothrombin Time 14.6 Seconds (11.1-14.7)
[2021-02-13 05:49] LABS: Alanine Aminotransferase 15 U/L (4-35); Albumin Level 3.5 g/dL (3.5-5.1); Alkaline Phosphatase 58 U/L (38-126); Anion Gap 6 mmol/L (8-16); Aspartate Amino Transferase 19 U/L (14-36); Bilirubin,Total 0.5 mg/dL (0.2-1.3); Blood Urea Nitrogen 14 mg/dL (7-17); CRP 14.3 mg/dL (<1.0); Calcium 9.2 mg/dL (8.4-10.2); Carbon Dioxide 32 mmol/L (22-30); Chloride 101 mmol/L (98-107); Estimated CRCL calculation 93 ml/min; Estimated Glomerular Filt Rate > 60; Glucose 104 mg/dL (65-105); Lactate Dehydrogenase 1115 U/L (313-618); Potassium 3.6 mmol/L (3.4-5.0); Sodium 139 mmol/L (137-145)
[2021-02-13] MEDS: ALBUTEROL SULFATE NEB 2.5 MG/0.5 ML INH 5 MG INHALATION ×3 (08:58→21:38)
[2021-02-13] MEDS: IPRATROPIUM BR 0.02% INH SOLN 0.5 MG/2.5 ML VIAL INHALATION ×3 (08:58→21:38)
[2021-02-13] MEDS: FLUTICASONE/UMECLIDIN/VILANTER 200-62.5-25 MCG ELLIPTA 1 PUFF INHALATION (09:08)
[2021-02-13] MEDS: ENOXAPARIN 40 MG/0.4 ML SYRINGE SUB-Q ×2 (09:39→21:02)
[2021-02-13] MEDS: DEXAMETHASONE 2 MG TABLET 6 MG PO (09:39)
[2021-02-13] MEDS: ESCITALOPRAM OXALATE 10 MG TABLET 20 MG PO (09:39)
[2021-02-13] MEDS: FUROSEMIDE 20 MG TABLET PO (09:39)
[2021-02-13] MEDS: PRAZOSIN HCL 1 MG CAPSULE PO (09:39)
[2021-02-13] MEDS: PANTOPRAZOLE 40 MG TABLET PO (09:39)
[2021-02-13] MEDS: buPROPion HCL XL (24 HR) 150 MG TABCR PO (09:39)
--- NOTE | 2021-02-13 15:17 | PM.IMPN ---
Progress Note: A&P Assessment and Plan (1) Pneumonia due to COVID-19 virus: Code(s): U07.1 - COVID-19; J12.82 - Pneumonia due to coronavirus disease 2019 Status: Acute Assessment and Plan: still requiring great amount of supplemental oxygen BiPAP tonight Pt tested positive for COVID 02/01/21 as a routine screening for a procedure and then began feeling SOB 02/06/21 -Will continue dexamethasone and lovenox. she finished her initial 5 days of Remdesivir but since she continues to be on a high level of o2 so I will continue remdesivir at this time for 5 additional doses. - she is utilizing her cpap and at 93%-100% when needed and at night -Continue o2 for sats <90 as well as albuterol - convalescent plasma given 02/08/21 -Pt unvaccinated -CTA showing bilateral PNA, no PE -CXR 02/10/21 showing diffuse airspace dz likely COVID -Monitor inflammatory markers - antibiotics stopped, no signs of bacterial PNA and pt just had Levaquin last month (2) Acute respiratory failure with hypoxia: Code(s): J96.01 - Acute respiratory failure with hypoxia Status: Acute Assessment and Plan: 2/2 to above -continue o2 (3) Hyperkalemia: Code(s): E87.5 - Hyperkalemia Status: Acute Assessment and Plan: resolved -hold spironolactone and daily potassium (4) Transaminitis: Code(s): R74.01 - Elevation of levels of liver transaminase levels Status: Acute Assessment and Plan: Normal 02/11/21 -monitor while on remdesivir (5) Leukopenia: Code(s): D72.819 - Decreased white blood cell count, unspecified Status: Acute Assessment and Plan: resolved -suspect due to viral infection -monitor (6) Chronic narcotic use: Code(s): F11.90 - Opioid use, unspecified, uncomplicated Status: Acute Assessment and Plan: Pt taxes Xtampza which is equivlent to 5mg Oxycodone IR Q6 hours for her chronic pack pain -Continue with that -provide narcan PRN (7) Osteoma of face: Code(s): D16.4 - Benign neoplasm of bones of skull and face Status: Acute Assessment and Plan: f/u with Dr. Varner (8) COPD mixed type: Code(s): J44.9 - Chronic obstructive pulmonary disease, unspecified Status: Acute Assessment and Plan: With exacerbation -Continue with trelegy, PRN albuterol and steroids (9) Cardiomegaly: Code(s): I51.7 - Cardiomegaly Status: Acute Assessment and Plan: Noted on imaging, no signs of active CHF -f/u with pcp for echo if she hasn't had one recently (10) Hypotension: Code(s): I95.9 - Hypotension, unspecified Status: Acute Assessment and Plan: Improving, last bp 102/48. No patient complaints. With her having COVID, I want to avoid ARDS, hold off on fluids at this time. If she becomes symptomatic or drops lower, we could start fluids then. She is also on narcotics which are chronic for her. I don't think this indicates worsening infection. She also runs on the lower end. Will continue to monitor Additional Plan Pt is being admitted into oberservation status and supervising physician for this H&P is Dr. Chavis Subjective Date/time seen: 02/13/21 15:17 I feel fine Interval history: patient is still requiring high amount of supplemental oxygen by non-rebreather and nasal cannula Pt is a 50 y/o female here for COVID PNA. patient was seen today and does on high-flow and off the CPAP. She said she had a coughing spell earlier and it took a while to recover but overall is feeling okay. She still gets short of breath with long conversations and she has not been out of bed because she drops with any movement. Other than that, she feels fine. She had a slight headache this morning that is dissipating. She is eating and drinking well. No nausea, vomiting, fevers, chills, diarrhea or constipation. Review of Systems
[2021-02-13] MEDS: QUEtiapine FUMARATE 100 MG TABLET 200 MG PO (21:02)
[2021-02-13] MEDS: BACLOFEN 10 MG TABLET 20 MG PO (21:03)
[2021-02-13] MEDS: REMDESIVIR 100 MG/NS 250 ML 100 MG/250 ML BAG 250 MG IVPB (21:51)
[2021-02-14] VITALS (22 sets, daily range): BP systolic 91–118; BP diastolic 40–65; PULSE 59–87; RESP 13–21; TEMP 35.9–36.6; O2SAT 90–100; BMI 30.7
[2021-02-14] MEDS: oxyCODONE HCL (*CRX) 5 MG TAB IR PO ×3 (01:17→20:52)
[2021-02-14] MEDS: IPRATROPIUM BR 0.02% INH SOLN 0.5 MG/2.5 ML VIAL INHALATION ×4 (03:48→21:32)
[2021-02-14] MEDS: ALBUTEROL SULFATE NEB 2.5 MG/0.5 ML INH 5 MG INHALATION ×4 (03:48→21:32)
[2021-02-14 05:27] LABS: Alanine Aminotransferase 14 U/L (4-35); Estimated CRCL calculation 93 ml/min; Estimated Glomerular Filt Rate > 60
[2021-02-14 05:45] LABS: INR 1.2; Prothrombin Time 14.6 Seconds (11.1-14.7)
[2021-02-14] MEDS: GABAPENTIN 300 MG CAPSULE PO ×3 (06:46→20:33)
[2021-02-14] MEDS: FLUTICASONE/UMECLIDIN/VILANTER 200-62.5-25 MCG ELLIPTA 1 PUFF INHALATION (08:26)
[2021-02-14] MEDS: DEXAMETHASONE 2 MG TABLET 6 MG PO (08:51)
[2021-02-14] MEDS: PANTOPRAZOLE 40 MG TABLET PO (08:51)
[2021-02-14] MEDS: PRAZOSIN HCL 1 MG CAPSULE PO (08:51)
[2021-02-14] MEDS: ESCITALOPRAM OXALATE 10 MG TABLET 20 MG PO (08:51)
[2021-02-14] MEDS: ENOXAPARIN 40 MG/0.4 ML SYRINGE SUB-Q ×2 (08:52→20:33)
[2021-02-14] MEDS: buPROPion HCL XL (24 HR) 150 MG TABCR PO (08:52)
[2021-02-14] MEDS: LUBIPROSTONE 24 MCG CAPSULE PO (08:52)
[2021-02-14] MEDS: FUROSEMIDE 20 MG TABLET PO (12:00)
--- NOTE | 2021-02-14 12:58 | PCNSR ---
On 02/14/21, the student,Lashawn Burris, provided care and completed [facility] documentation on this patient. I have reviewed the student's documentation and agree with the findings.
--- NOTE | 2021-02-14 17:10 | PM.IMPN ---
Progress Note: A&P Assessment and Plan (1) Pneumonia due to COVID-19 virus: Code(s): U07.1 - COVID-19; J12.82 - Pneumonia due to coronavirus disease 2019 Status: Acute Assessment and Plan: Pt tested positive for COVID 02/01/21 as a routine screening for a procedure and then began feeling SOB 02/06/21. CTA showing bilateral PNA, no PE. Patient unvaccinated. CXR 02/10/21 showing diffuse airspace dz likely COVID. Abx stopped since no signs of bacterial infection -Will continue dexamethasone and lovenox. she finished her initial 5 days of Remdesivir but since she continues to be on a high level of o2, Remdesivir continued for 5 additional doses. Convalescent plasma given 02/08/21 - She is utilizing NIV when needed and at night -Continue O2 for sats >90 as well as albuterol -Monitor inflammatory markers (2) Acute respiratory failure with hypoxia: Code(s): J96.01 - Acute respiratory failure with hypoxia Status: Acute Assessment and Plan: Patient with COVID-19 present on admission resulting in acute hypoxic respiratory failure. Treatment plan as above. Wean oxygen as tolerated. (3) COPD mixed type: Code(s): J44.9 - Chronic obstructive pulmonary disease, unspecified Status: Acute Assessment and Plan: With exacerbation. No wheezing appreciated. Continue with trelegy, PRN albuterol and steroids (4) Chronic narcotic use: Code(s): F11.90 - Opioid use, unspecified, uncomplicated Status: Acute Assessment and Plan: Pt taxes Xtampza which is equivlent to 5mg Oxycodone IR Q6 hours for her chronic pack pain which has been continued. Narcan available as needed. (5) Hypotension: Code(s): I95.9 - Hypotension, unspecified Status: Acute Assessment and Plan: Patient's blood pressure was reviewed on 02/14 Blood pressure soft at times. She is on Lasix. Will stop Lasix.She is also on narcotics which could be contributing to low blood pressure. Narcotics are held if her blood pressures to soft. Continue current parameters. (6) Cardiomegaly: Code(s): I51.7 - Cardiomegaly Status: Acute Assessment and Plan: Noted on imaging. Check Echo. 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 Varner (8) Hyperkalemia: Code(s): E87.5 - Hyperkalemia Status: Acute Assessment and Plan: Resolved. Spironolactone and daily potassium remain on hold. (9) Transaminitis: Code(s): R74.01 - Elevation of levels of liver transaminase levels Status: Acute Assessment and Plan: AST mildly elevated 41 on admission but this has since normalized. Continue to monitor while on remdesivir. (10) Leukopenia: Code(s): D72.819 - Decreased white blood cell count, unspecified Status: Acute Assessment and Plan: Resolved. Suspect due to viral infection. Subjective Date/time seen: 02/14/21 17:10 Interval history: 50yo female with COPD, chronic pain and PTSD here for COVID PNA and acute respiraotry failure. Assuming care. Chart reviewed. She feel better. Still on 15L HFNC and 10L NRB mask. She slept well. She has been lying prone at night. Up to the chair yesterday and she is independent. Exam Narrative: Exam Narrative: AF 97.2 91/50 83 20 94% ra Gen - NARD Chest - distant clear BS, nml RR. no conversational dyspnea. CV - RRR S1/S2 Abd - Soft, NT/ND, Positive BS Ext - No pedal edema, 2+ DP bilaterally Psych - Nml mood and affect Skin - Warm and dry Objective Data Vital Signs Vital Signs: Vital Signs - 24 hr 02/13/21 17:57 02/13/21 20:00 02/13/21 21:38 Temperature 97.8 F Pulse Rate 75 75 75 Respiratory Rate 22 H 20 Blood Pressure 93/54 L Pulse Oximetry 91 02/13/21 21:52 02/13/21 22:00 02/13/21 22:35 Temperature Pulse Rate
[2021-02-14] MEDS: REMDESIVIR 100 MG/NS 250 ML 100 MG/250 ML BAG 250 MG IVPB (22:01)
[2021-02-14] MEDS: QUEtiapine FUMARATE 100 MG TABLET 200 MG PO (23:16)
[2021-02-15] VITALS (28 sets, daily range): BP systolic 92–109; BP diastolic 51–77; PULSE 59–96; RESP 12–21; TEMP 36.1–37; O2SAT 89–100
--- NOTE | 2021-02-15 | ECHO_ITS ---
Patient Info Name: Lakeisha Alejandra Age: 50 years : 1970 Gender: Female Ht: 63 in Wt: 173 lbs BSA: 1.90 m2 HR: 75 bpm BP: 99 / 52 mmHg Heart Rhythm: Sinus Rhythm Technical Quality: Fair, Good Exam Date: 02/15/2021 11:01 AM Exam Location: [facility] Pulmonary Exam Room: 210 Patient Status: Inpatient Admit Date: 02/08/2021 Staff Ordering Physician: Laith Jarrett MD Receiving Clerk: Nga Castellanos RDCS Attending Provider: Ivon Prieto-Luz Maria Exam Type: CA echo doppler color flow Study Info Indications - cm covid pneumonia Complete two-dimensional, color flow and Doppler transthoracic echocardiogram is performed. Summary 1. Complete two-dimensional, color flow and Doppler transthoracic echocardiogram is performed. 2. Technically difficult study with limited views. Regional wall motion assessment limited due to poor endomyocardial border definition, however, no clear wall motion abnormalities identified. 3. Left ventricular chamber dimension is normal. 4. Left ventricular systolic function is normal, estimated at 60-65%. 5. There is no increased left ventricular wall thickness. 6. Unable to estimate PA systolic pressure due to poor spectral resolution of tricuspid regurgitant jet velocity. Left Ventricle Left ventricular chamber dimension is normal. Left ventricular systolic function is normal, estimated at 60-65%. There is no increased left ventricular wall thickness. The left ventricular diastolic function is normal. Technically difficult study with limited views. Regional wall motion assessment limited due to poor endomyocardial border definition, however, no clear wall motion abnormalities identified. Right Ventricle Right ventricular chamber dimension is not well visualized. Left Atria Left atrial chamber dimension is normal. Right Atria Right atrial chamber dimension is normal. Aortic Valve The aortic valve is probable trileaflet. There is no aortic valve stenosis. There is no aortic valve regurgitation. Pulmonic Valve The pulmonic valve is not well visualized. Mitral Valve The mitral valve has normal leaflets. There is no mitral valve regurgitation. Tricuspid Valve The tricuspid valve leaflets are not well visualized. Unable to estimate PA systolic pressure due to poor spectral resolution of tricuspid regurgitant jet velocity. Pericardium/Pleural The pericardium appears normal. There is no pericardial effusion. Inferior Vena Cava Normal inferior vena cava with >50% collapse upon inspiration consistent with normal right atrial pressure, 5 mmHg. Aorta The aortic root size at the sinus of Valsalva is normal. Left Ventricular Outflow Tract Name Value Normal LVOT 2D LVOT Diameter 2.1 cm LVOT Doppler LVOT Peak Gradient 6 mmHg LVOT Mean Gradient 3 mmHg LVOT VTI 21 cm LVOT VTI/AV VTI Ratio 1.2 LVOT Stroke Volume 71 ml LVOT CO 15.5 l/min LVOT CI 8
[2021-02-15] MEDS: IPRATROPIUM BR 0.02% INH SOLN 0.5 MG/2.5 ML VIAL INHALATION ×4 (04:36→22:13)
[2021-02-15] MEDS: ALBUTEROL SULFATE NEB 2.5 MG/0.5 ML INH 5 MG INHALATION ×4 (04:36→22:14)
[2021-02-15 04:46] LABS: Hematocrit 38.7 % (37.0-47.0); Mean Corpuscular HGB Conc 33.6 g/dl (32-36); Mean Corpuscular Hemoglobin 31.9 pg (26-34); Mean Corpuscular Volume 94.9 fl (80-100); Mean Platelet Volume 8.7 fl (7.4-10.4); Platelet Count Result 247 k/mm3 (150-375); Red Blood Count 4.08 M/mm3 (4.2-5.4); Red Cell Distribution Width 12.9 % (11.5-14.5)
[2021-02-15 05:12] LABS: INR 1.2; Prothrombin Time 14.9 Seconds (11.1-14.7)
[2021-02-15 05:17] LABS: Alanine Aminotransferase 15 U/L (4-35); Anion Gap 7 mmol/L (8-16); Blood Urea Nitrogen 15 mg/dL (7-17); CRP 6.4 mg/dL (<1.0); Calcium 9.2 mg/dL (8.4-10.2); Carbon Dioxide 31 mmol/L (22-30); Chloride 100 mmol/L (98-107); Estimated CRCL calculation 93 ml/min; Estimated Glomerular Filt Rate > 60; Glucose 94 mg/dL (65-110); Lactate Dehydrogenase 965 U/L (313-618); Potassium 3.7 mmol/L (3.4-5.0); Sodium 138 mmol/L (137-145)
[2021-02-15] MEDS: GABAPENTIN 300 MG CAPSULE PO ×3 (06:38→22:23)
[2021-02-15] MEDS: oxyCODONE HCL (*CRX) 5 MG TAB IR PO ×3 (07:37→17:45)
[2021-02-15] MEDS: FLUTICASONE/UMECLIDIN/VILANTER 200-62.5-25 MCG ELLIPTA 1 PUFF INHALATION (08:35)
[2021-02-15] MEDS: DEXAMETHASONE 2 MG TABLET 6 MG PO (09:10)
[2021-02-15] MEDS: buPROPion HCL XL (24 HR) 150 MG TABCR PO (09:10)
[2021-02-15] MEDS: PANTOPRAZOLE 40 MG TABLET PO (09:11)
[2021-02-15] MEDS: ESCITALOPRAM OXALATE 10 MG TABLET 20 MG PO (09:11)
[2021-02-15] MEDS: FUROSEMIDE 20 MG TABLET PO (09:11)
[2021-02-15] MEDS: ENOXAPARIN 40 MG/0.4 ML SYRINGE SUB-Q (09:11)
[2021-02-15] MEDS: LUBIPROSTONE 24 MCG CAPSULE PO ×2 (09:11→17:42)
[2021-02-15] MEDS: PRAZOSIN HCL 1 MG CAPSULE PO (09:12)
--- NOTE | 2021-02-15 16:09 | PM.IMPN ---
Progress Note: A&P Assessment and Plan (1) Pneumonia due to COVID-19 virus: Code(s): U07.1 - COVID-19; J12.82 - Pneumonia due to coronavirus disease 2019 Status: Acute Assessment and Plan: Pt tested positive for COVID 02/01/21 as a routine screening for a procedure and then began feeling SOB 02/06/21. CTA showing bilateral PNA, no PE. Patient unvaccinated. CXR 02/10/21 showing diffuse airspace dz likely COVID. Abx stopped since no signs of bacterial infection -Will continue dexamethasone But will switch to IV and increase the dose to 10 mg IV once a day. She has received 7 does of remdisivir. I will stop it as there is no data to support extended use for more than 5 days. Convalescent plasma given 02/08/21 - She is utilizing NIV when needed and at night She is currently requiring oxygen with 15 L through high-flow nasal cannula. Wean oxygen if tolerated. Keep oxygenation above 90%. if in case of decompensation, she would need to be transferred to ICU for close monitoring and intubation/mechanical ventilation -Monitor inflammatory markers Which are trending down. (2) Acute respiratory failure with hypoxia: Code(s): J96.01 - Acute respiratory failure with hypoxia Status: Acute Assessment and Plan: Patient with COVID-19 present on admission resulting in acute hypoxic respiratory failure. Treatment plan as above. Wean oxygen as tolerated. (3) COPD mixed type: Code(s): J44.9 - Chronic obstructive pulmonary disease, unspecified Status: Acute Assessment and Plan: no acute exacerbation. No wheezing appreciated. Continue with trelegy, PRN albuterol and steroids (4) Chronic narcotic use: Code(s): F11.90 - Opioid use, unspecified, uncomplicated Status: Acute Assessment and Plan: Pt taxes Xtampza which is equivlent to 5mg Oxycodone IR Q6 hours for her chronic pack pain which has been continued. Narcan available as needed. (5) Hypotension: Code(s): I95.9 - Hypotension, unspecified Status: Acute Assessment and Plan: Patient's blood pressure was reviewed on 02/15 Blood pressure soft at times. She is on Lasix. Will continue to hold Lasix. She is also on narcotics which could be contributing to low blood pressure. Narcotics are held if her blood pressures to soft. Continue current parameters. (6) Cardiomegaly: Code(s): I51.7 - Cardiomegaly Status: Acute Assessment and Plan: Noted on imaging. Echo showed ejection fraction of 60-65%. No clear wall motion abnormality noticed. No evidence of diastolic dysfunction. 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 Varner (8) Hyperkalemia: Code(s): E87.5 - Hyperkalemia Status: Acute Assessment and Plan: Resolved. Spironolactone and daily potassium remain on hold. Lasix is on hold as well. (9) Transaminitis: Code(s): R74.01 - Elevation of levels of liver transaminase levels Status: Acute Assessment and Plan: AST mildly elevated 41 on admission but this has since normalized. Continue to monitor while on remdesivir. (10) Leukopenia: Code(s): D72.819 - Decreased white blood cell count, unspecified Status: Acute Assessment and Plan: Resolved. Suspect due to viral infection. (11) HECTOR (obstructive sleep apnea): Code(s): G47.33 - Obstructive sleep apnea (adult) (pediatric) Status: Acute Assessment and Plan: Uses CPAP at baseline. If she is using BiPAP here at nighttime. Additional Plan Continue to monitor closely. May need to be transferred to ICU if worsening respiratory status. Lovenox will be decreased to 40 mg subcutaneously once a day from twice a day. Repeat chest x-ray ordered for tomorrow. Subjective Date/time seen:
[2021-02-15] MEDS: ACYCLOVIR 5% OINTMENT 15 GM TUBE 1 APPLIC TOPICAL ×2 (17:42→20:31)
[2021-02-15] MEDS: QUEtiapine FUMARATE 100 MG TABLET 200 MG PO (22:23)
[2021-02-16] VITALS (29 sets, daily range): BP systolic 95–109; BP diastolic 51–89; PULSE 61–106; RESP 12–24; TEMP 36.1–37.6; O2SAT 91–97
[2021-02-16] MEDS: ALBUTEROL SULFATE NEB 2.5 MG/0.5 ML INH 5 MG INHALATION ×4 (03:48→21:31)
[2021-02-16] MEDS: IPRATROPIUM BR 0.02% INH SOLN 0.5 MG/2.5 ML VIAL INHALATION ×4 (03:49→21:31)
[2021-02-16] MEDS: oxyCODONE HCL (*CRX) 5 MG TAB IR PO ×4 (06:46→23:06)
[2021-02-16] MEDS: GABAPENTIN 300 MG CAPSULE PO ×3 (06:46→21:05)
--- NOTE | 2021-02-16 07:20 | PM.IMPN ---
Progress Note: A&P Assessment and Plan (1) Pneumonia due to COVID-19 virus: Code(s): U07.1 - COVID-19; J12.82 - Pneumonia due to coronavirus disease 2019 Status: Acute Assessment and Plan: Pt tested positive for COVID 02/01/21 as a routine screening for a procedure and then began feeling SOB 02/06/21. CTA showing bilateral PNA, no PE. Patient unvaccinated. CXR 02/10/21 showing diffuse airspace dz likely COVID. Abx stopped since no signs of bacterial infection - Dexamethasone has been switched to IV and dose was increased to 10 mg IV once a day on 02/15. will continue higher dose of dexamethasone and can be weaned based on her clinical and respiratory status improved. She has received 7 does of remdisivir. I will stop it as there is no data to support extended use for more than 5 days. Convalescent plasma given 02/08/21 - She is utilizing NIV when needed and at night She is currently requiring oxygen with 10 L through high-flow nasal cannula. her oxygen requirement is trending down. Wean oxygen if tolerated. Keep oxygenation above 90%. if in case of decompensation, she would need to be transferred to ICU for close monitoring and intubation/mechanical ventilation -Monitor inflammatory markers Which are trending down. (2) Acute respiratory failure with hypoxia: Code(s): J96.01 - Acute respiratory failure with hypoxia Status: Acute Assessment and Plan: Patient with COVID-19 present on admission resulting in acute hypoxic respiratory failure. Treatment plan as above. Wean oxygen as tolerated. (3) COPD mixed type: Code(s): J44.9 - Chronic obstructive pulmonary disease, unspecified Status: Acute Assessment and Plan: no acute exacerbation. No wheezing appreciated. Continue with trelegy, PRN albuterol and steroids (4) Chronic narcotic use: Code(s): F11.90 - Opioid use, unspecified, uncomplicated Status: Acute Assessment and Plan: Pt taxes Xtampza which is equivlent to 5mg Oxycodone IR Q6 hours for her chronic pack pain which has been continued. Narcan available as needed. (5) Hypotension: Code(s): I95.9 - Hypotension, unspecified Status: Acute Assessment and Plan: Patient's blood pressure was reviewed on 02/16 Blood pressure soft at times. She is on Lasix. Will continue to hold Lasix. She is also on narcotics which could be contributing to low blood pressure. Narcotics Can be put on hold if her blood pressures to soft. Continue current parameters. (6) Cardiomegaly: Code(s): I51.7 - Cardiomegaly Status: Acute Assessment and Plan: Noted on imaging. Echo showed ejection fraction of 60-65%. No clear wall motion abnormality noticed. No evidence of diastolic dysfunction. 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 Varner (8) Hyperkalemia: Code(s): E87.5 - Hyperkalemia Status: Acute Assessment and Plan: Resolved. Spironolactone and daily potassium remain on hold. Lasix is on hold as well. (9) Transaminitis: Code(s): R74.01 - Elevation of levels of liver transaminase levels Status: Acute Assessment and Plan: AST mildly elevated 41 on admission but this has since normalized. Continue to monitor while on remdesivir. (10) Leukopenia: Code(s): D72.819 - Decreased white blood cell count, unspecified Status: Acute Assessment and Plan: Resolved. Suspect due to viral infection. (11) HECTOR (obstructive sleep apnea): Code(s): G47.33 - Obstructive sleep apnea (adult) (pediatric) Status: Acute Assessment and Plan: Uses CPAP at baseline. She is currently on BiPAP overnight which is helping her with her respiratory status as well. Additional Plan Continue to monitor closely. May
[2021-02-16] MEDS: ESCITALOPRAM OXALATE 10 MG TABLET 20 MG PO (07:52)
[2021-02-16] MEDS: buPROPion HCL XL (24 HR) 150 MG TABCR PO (07:53)
[2021-02-16] MEDS: ACYCLOVIR 5% OINTMENT 15 GM TUBE 1 APPLIC TOPICAL ×5 (07:53→21:05)
[2021-02-16] MEDS: LUBIPROSTONE 24 MCG CAPSULE PO ×2 (07:53→16:53)
[2021-02-16] MEDS: PANTOPRAZOLE 40 MG TABLET PO (07:53)
[2021-02-16] MEDS: ENOXAPARIN 40 MG/0.4 ML SYRINGE SUB-Q (07:54)
[2021-02-16] MEDS: PRAZOSIN HCL 1 MG CAPSULE PO (07:54)
[2021-02-16] MEDS: FLUTICASONE/UMECLIDIN/VILANTER 200-62.5-25 MCG ELLIPTA 1 PUFF INHALATION (10:08)
[2021-02-16] MEDS: QUEtiapine FUMARATE 100 MG TABLET 200 MG PO (21:05)
[2021-02-17] VITALS (25 sets, daily range): BP systolic 91–119; BP diastolic 44–75; PULSE 68–117; RESP 15–20; TEMP 36.4–36.8; O2SAT 89–95
[2021-02-17] MEDS: ALBUTEROL SULFATE NEB 2.5 MG/0.5 ML INH 5 MG INHALATION ×4 (02:14→22:07)
[2021-02-17] MEDS: IPRATROPIUM BR 0.02% INH SOLN 0.5 MG/2.5 ML VIAL INHALATION ×4 (02:15→22:07)
[2021-02-17 05:44] LABS: D Dimer 0.36 ug/mL (<0.48)
[2021-02-17 05:49] LABS: CRP 2.2 mg/dL (<1.0)
[2021-02-17] MEDS: oxyCODONE HCL (*CRX) 5 MG TAB IR PO ×4 (06:24→23:34)
[2021-02-17] MEDS: GABAPENTIN 300 MG CAPSULE PO ×3 (06:24→23:34)
[2021-02-17] MEDS: FLUTICASONE/UMECLIDIN/VILANTER 200-62.5-25 MCG ELLIPTA 1 PUFF INHALATION (09:07)
[2021-02-17] MEDS: buPROPion HCL XL (24 HR) 150 MG TABCR PO (09:50)
[2021-02-17] MEDS: LUBIPROSTONE 24 MCG CAPSULE PO ×2 (09:50→18:42)
[2021-02-17] MEDS: ENOXAPARIN 40 MG/0.4 ML SYRINGE SUB-Q (09:50)
[2021-02-17] MEDS: ESCITALOPRAM OXALATE 10 MG TABLET 20 MG PO (09:50)
[2021-02-17] MEDS: PANTOPRAZOLE 40 MG TABLET PO (09:50)
[2021-02-17] MEDS: ACYCLOVIR 5% OINTMENT 15 GM TUBE 1 APPLIC TOPICAL ×5 (09:55→23:33)
--- NOTE | 2021-02-17 14:21 | PM.IMPN ---
Progress Note: A&P Assessment and Plan (1) Pneumonia due to COVID-19 virus: Code(s): U07.1 - COVID-19; J12.82 - Pneumonia due to coronavirus disease 2019 Status: Acute Assessment and Plan: Pt tested positive for COVID 02/01/21 as a routine screening for a procedure and then began feeling SOB 02/06/21. CTA showing bilateral PNA, no PE. Patient unvaccinated. CXR 02/16/21 showing diffuse lung disease with interval worsening, consistent with pneumonia and/or pulmonary edema and/or acute respiratory distress syndrome (ARDS). Abx stopped since no signs of bacterial infection. She is currently on Dexamethasone and this has been switched to IV and dose was increased to 10 mg IV once a day on 02/15. Will continue higher dose of dexamethasone and can be weaned based on her clinical and respiratory status improved. Remdesivir was stopped after 7 days. Convalescent plasma given 02/08/21. She continues on NIV when needed and at night. She is improving with O2 requirement down to 7L through high-flow nasal cannula. Inflammatory markers are trending down. Contineu close monitoring. (2) Acute respiratory failure with hypoxia: Code(s): J96.01 - Acute respiratory failure with hypoxia Status: Acute Assessment and Plan: Patient with COVID-19 present on admission resulting in acute hypoxic respiratory failure. Treatment plan as above. Wean oxygen as tolerated. (3) COPD mixed type: Code(s): J44.9 - Chronic obstructive pulmonary disease, unspecified Status: Acute Assessment and Plan: No acute exacerbation. No wheezing appreciated. Continue with Trelegy, Albuterol and Atrovent and steroids. (4) Chronic narcotic use: Code(s): F11.90 - Opioid use, unspecified, uncomplicated Status: Acute Assessment and Plan: Pt taxes Xtampza which is equivalent to 5mg Oxycodone IR Q6 hours for her chronic pack pain which has been continued. Narcan available as needed. (5) Hypotension: Code(s): I95.9 - Hypotension, unspecified Status: Acute Assessment and Plan: Patient's blood pressure was reviewed on 02/17 Blood pressure remains soft at times still despite being off the Prazosin, lasix and Spironolactone. She is also on narcotics which could be contributing to low blood pressure. Narcotics to be put on hold if her blood pressures to soft. Continue current parameters. (6) Cardiomegaly: Code(s): I51.7 - Cardiomegaly Status: Acute Assessment and Plan: Noted on imaging. Echo showed ejection fraction of 60-65%. No clear wall motion abnormality noticed. No evidence of diastolic dysfunction. 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 Varner (8) Hyperkalemia: Code(s): E87.5 - Hyperkalemia Status: Acute Assessment and Plan: Resolved. Spironolactone and daily potassium remain on hold. Lasix is on hold as well. (9) Transaminitis: Code(s): R74.01 - Elevation of levels of liver transaminase levels Status: Acute Assessment and Plan: AST mildly elevated at 41 on admission but this has since normalized. Continue to monitor while on remdesivir. (10) Leukopenia: Code(s): D72.819 - Decreased white blood cell count, unspecified Status: Acute Assessment and Plan: Resolved. Suspect due to viral infection. (11) HECTOR (obstructive sleep apnea): Code(s): G47.33 - Obstructive sleep apnea (adult) (pediatric) Status: Acute Assessment and Plan: Uses CPAP at baseline. She is currently on BiPAP overnight which is helping her with her respiratory status as well. (12) DVT prophylaxis: Code(s): Z29.9 - Encounter for prophylactic measures, unspecified Status: Acute Assessment and Plan: Lovenox Subjective Date/time seen: 02/17
[2021-02-17] MEDS: QUEtiapine FUMARATE 100 MG TABLET 200 MG PO (23:34)
[2021-02-18] VITALS (21 sets, daily range): BP systolic 101–120; BP diastolic 56–77; PULSE 63–105; RESP 12–20; TEMP 36.2–36.9; O2SAT 91–100
[2021-02-18] MEDS: IPRATROPIUM BR 0.02% INH SOLN 0.5 MG/2.5 ML VIAL INHALATION ×4 (03:07→20:04)
[2021-02-18] MEDS: ALBUTEROL SULFATE NEB 2.5 MG/0.5 ML INH 5 MG INHALATION ×4 (03:08→20:03)
[2021-02-18 05:07] LABS: Basophils Percent Auto 0.2 % (0.2-1.2); Eosinophils Absolute Auto 0.1 K/mm3 (0-0.3); Eosinophils Percent Auto 0.8 % (0-4.4); Hematocrit 39.7 % (37.0-47.0); Hemoglobin 12.7 g/dL (12.0-15.0); Immature Granulocyte Absolute 0.29 K/mm3 (0.00-0.031); Immature Granulocyte Percent A 2.6 % (0-0.5); Lymphocytes Absolute Auto 1.65 K/mm3 (0.9-3.2); Lymphocytes Percent Auto 14.6 % (18.3-44.2); Mean Corpuscular Hemoglobin 31.3 pg (26-34); Mean Corpuscular Volume 97.8 fl (80-100); Mean Platelet Volume 8.7 fl (7.4-10.4); Monocytes Absolute Auto 0.4 K/mm3 (0.1-0.6); Monocytes Percent Auto 3.4 % (2.6-8.5); Neutrophils Absolute Auto 8.9 K/mm3 (1.3-6.7); Neutrophils Percent Auto 78.4 % (45.5-73.1); Platelet Count Result 246 k/mm3 (150-375); Red Blood Count 4.06 M/mm3 (4.2-5.4); Red Cell Distribution Width 13.1 % (11.5-14.5); White Blood Count 11.3 K/mm3 (4.5-10.0)
[2021-02-18 05:37] LABS: Alanine Aminotransferase 35 U/L (4-35); Albumin Level 3.2 g/dL (3.5-5.1); Alkaline Phosphatase 63 U/L (38-126); Anion Gap 8 mmol/L (8-16); Aspartate Amino Transferase 31 U/L (14-36); Bilirubin,Total 0.5 mg/dL (0.2-1.3); Blood Urea Nitrogen 14 mg/dL (7-17); Calcium 8.9 mg/dL (8.4-10.2); Carbon Dioxide 28 mmol/L (22-30); Chloride 100 mmol/L (98-107); Estimated CRCL calculation 109 ml/min; Estimated Glomerular Filt Rate > 60; Glucose 170 mg/dL (65-110); Magnesium 1.8 mg/dL (1.6-2.3); Phosphorus 3.8 mg/dL (2.5-4.5); Potassium 3.7 mmol/L (3.4-5.0); Sodium 136 mmol/L (137-145)
[2021-02-18] MEDS: GABAPENTIN 300 MG CAPSULE PO ×3 (06:16→23:21)
[2021-02-18] MEDS: oxyCODONE HCL (*CRX) 5 MG TAB IR PO ×3 (06:16→20:29)
[2021-02-18] MEDS: PANTOPRAZOLE 40 MG TABLET PO (08:52)
[2021-02-18] MEDS: buPROPion HCL XL (24 HR) 150 MG TABCR PO (08:52)
[2021-02-18] MEDS: ENOXAPARIN 40 MG/0.4 ML SYRINGE SUB-Q (08:52)
[2021-02-18] MEDS: ESCITALOPRAM OXALATE 10 MG TABLET 20 MG PO (08:52)
[2021-02-18] MEDS: LUBIPROSTONE 24 MCG CAPSULE PO ×2 (08:52→17:40)
[2021-02-18] MEDS: ACYCLOVIR 5% OINTMENT 15 GM TUBE 1 APPLIC TOPICAL ×5 (08:53→23:29)
[2021-02-18] MEDS: FLUTICASONE/UMECLIDIN/VILANTER 200-62.5-25 MCG ELLIPTA 1 PUFF INHALATION (09:04)
--- NOTE | 2021-02-18 15:49 | PM.IMPN ---
Progress Note: A&P Assessment and Plan (1) Pneumonia due to COVID-19 virus: Code(s): U07.1 - COVID-19; J12.82 - Pneumonia due to coronavirus disease 2019 Status: Acute Assessment and Plan: Pt tested positive for COVID 02/01/21 as a routine screening for a procedure and then began feeling SOB 02/06/21. CTA showing bilateral PNA, no PE. Patient unvaccinated. CXR 02/16/21 showing diffuse lung disease with interval worsening, consistent with pneumonia and/or pulmonary edema and/or acute respiratory distress syndrome (ARDS). Abx stopped since no signs of bacterial infection. She is currently on Dexamethasone and this has been switched to IV and dose was increased to 10 mg IV once a day on 02/15. Will continue higher dose of dexamethasone and can be weaned based on her clinical and respiratory status improved. Remdesivir was stopped after 7 days. Convalescent plasma given 02/08/21. She continues on NIV when needed and at night. She is improving with O2 requirement down to 6L through high-flow nasal cannula. Continue to weak O2. If o2 requirement improved, possibly home with home O2. (2) Acute respiratory failure with hypoxia: Code(s): J96.01 - Acute respiratory failure with hypoxia Status: Acute Assessment and Plan: Patient with COVID-19 present on admission resulting in acute hypoxic respiratory failure. Treatment plan as above. Wean oxygen as tolerated. (3) COPD mixed type: Code(s): J44.9 - Chronic obstructive pulmonary disease, unspecified Status: Acute Assessment and Plan: No acute exacerbation. No wheezing appreciated. Continue with Trelegy, Albuterol and Atrovent and steroids. (4) Chronic narcotic use: Code(s): F11.90 - Opioid use, unspecified, uncomplicated Status: Acute Assessment and Plan: Pt takes Xtampza which is equivalent to 5mg Oxycodone IR Q6 hours for her chronic pack pain which has been continued. Narcan available as needed. (5) Hypotension: Code(s): I95.9 - Hypotension, unspecified Status: Acute Assessment and Plan: Patient's blood pressure was reviewed on 02/18 Blood pressure remains soft at times still despite being off the Prazosin, lasix and Spironolactone. She is also on narcotics which could be contributing to low blood pressure. Narcotics to be put on hold if her blood pressures become soft. Continue current parameters. (6) Cardiomegaly: Code(s): I51.7 - Cardiomegaly Status: Acute Assessment and Plan: Noted on imaging. Echo showed ejection fraction of 60-65%. No clear wall motion abnormality noticed. No evidence of diastolic dysfunction. Could be related to imaging technique. 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 Varner (8) Hyperkalemia: Code(s): E87.5 - Hyperkalemia Status: Acute Assessment and Plan: Resolved. Spironolactone and daily potassium remain on hold. Lasix is on hold as well. These remain on hold mostly due to soft BP. (9) Transaminitis: Code(s): R74.01 - Elevation of levels of liver transaminase levels Status: Acute Assessment and Plan: AST mildly elevated at 41 on admission but this has since normalized. Continue to monitor. (10) Leukopenia: Code(s): D72.819 - Decreased white blood cell count, unspecified Status: Acute Assessment and Plan: Resolved. Suspect due to viral infection. (11) HECTOR (obstructive sleep apnea): Code(s): G47.33 - Obstructive sleep apnea (adult) (pediatric) Status: Acute Assessment and Plan: Uses NIV at baseline. She is currently on BiPAP overnight which is helping her with her respiratory status as well. (12) DVT prophylaxis: Code(s): Z29.9 - Encounter for prophylactic measures, unspecified Status: Acute A
[2021-02-18] MEDS: QUEtiapine FUMARATE 100 MG TABLET 200 MG PO (23:21)
[2021-02-19] VITALS (26 sets, daily range): BP systolic 104–128; BP diastolic 58–73; PULSE 64–107; RESP 14–20; TEMP 36.4–37.1; O2SAT 90–95
[2021-02-19] MEDS: IPRATROPIUM BR 0.02% INH SOLN 0.5 MG/2.5 ML VIAL INHALATION ×4 (01:50→20:57)
[2021-02-19] MEDS: ALBUTEROL SULFATE NEB 2.5 MG/0.5 ML INH 5 MG INHALATION ×4 (01:50→20:57)
[2021-02-19] MEDS: GABAPENTIN 300 MG CAPSULE PO ×3 (06:54→20:57)
[2021-02-19] MEDS: oxyCODONE HCL (*CRX) 5 MG TAB IR PO ×3 (06:54→17:07)
[2021-02-19] MEDS: FLUTICASONE/UMECLIDIN/VILANTER 200-62.5-25 MCG ELLIPTA 1 PUFF INHALATION (07:53)
[2021-02-19] MEDS: ESCITALOPRAM OXALATE 10 MG TABLET 20 MG PO (08:38)
[2021-02-19] MEDS: LUBIPROSTONE 24 MCG CAPSULE PO ×2 (08:38→17:07)
[2021-02-19] MEDS: PANTOPRAZOLE 40 MG TABLET PO (08:38)
[2021-02-19] MEDS: buPROPion HCL XL (24 HR) 150 MG TABCR PO (08:38)
[2021-02-19] MEDS: ACYCLOVIR 5% OINTMENT 15 GM TUBE 1 APPLIC TOPICAL ×5 (08:39→20:58)
[2021-02-19] MEDS: ENOXAPARIN 40 MG/0.4 ML SYRINGE SUB-Q (08:39)
[2021-02-19] MEDS: FUROSEMIDE 20 MG TABLET PO (11:58)
--- NOTE | 2021-02-19 15:42 | PM.IMPN ---
Progress Note: A&P Assessment and Plan (1) Pneumonia due to COVID-19 virus: Code(s): U07.1 - COVID-19; J12.82 - Pneumonia due to coronavirus disease 2019 Status: Acute Assessment and Plan: Pt tested positive for COVID 02/01/21 as a routine screening for a procedure and then began feeling SOB 02/06/21. CTA showing bilateral PNA, no PE. Patient unvaccinated. CXR 02/16/21 showing diffuse lung disease with interval worsening, consistent with pneumonia and/or pulmonary edema and/or acute respiratory distress syndrome (ARDS). Abx stopped since no signs of bacterial infection. She is currently on Dexamethasone and this has been switched to IV and dose was increased to 10 mg IV once a day on 02/15. Will continue higher dose of dexamethasone and can be weaned based on her clinical and respiratory status improved. Check glucose more regularly. Remdesivir was stopped after 7 days. Convalescent plasma given 02/08/21. She continues on NIV when needed and at night. She is improving with O2 requirement down to 4L through high-flow nasal cannula. Home O2 evaluation this morning but had a very high O2 requirement with activity so not ready for discharge yet. Continue to wean O2. Repeat home O2 evaluation in 1-2 days. (2) Acute respiratory failure with hypoxia: Code(s): J96.01 - Acute respiratory failure with hypoxia Status: Acute Assessment and Plan: Patient with COVID-19 present on admission resulting in acute hypoxic respiratory failure. Treatment plan as above. Wean oxygen as tolerated. (3) COPD mixed type: Code(s): J44.9 - Chronic obstructive pulmonary disease, unspecified Status: Acute Assessment and Plan: No acute exacerbation. No wheezing appreciated. Continue with Trelegy, Albuterol and Atrovent and steroids. (4) Chronic narcotic use: Code(s): F11.90 - Opioid use, unspecified, uncomplicated Status: Acute Assessment and Plan: Pt takes Xtampza which is equivalent to 5mg Oxycodone IR Q6 hours for her chronic pack pain which has been continued. Narcan available as needed. (5) Hypotension: Code(s): I95.9 - Hypotension, unspecified Status: Acute Assessment and Plan: Patient's blood pressure was reviewed on 02/19 Blood pressure stable now. Prazosin, Lasix and Spironolactone remain on hold. She is also on narcotics which could be contributing to low blood pressure. Narcotics to be put on hold if her blood pressures become soft. Continue current parameters. Add back Lasix. (6) Cardiomegaly: Code(s): I51.7 - Cardiomegaly Status: Acute Assessment and Plan: Noted on imaging. Echo showed ejection fraction of 60-65%. No clear wall motion abnormality noticed. No evidence of diastolic dysfunction. Could be related to imaging technique. 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 Varner (8) Hyperkalemia: Code(s): E87.5 - Hyperkalemia Status: Acute Assessment and Plan: Resolved. Spironolactone and daily potassium remain on hold. Lasix is on hold as well. These remain on hold mostly due to soft BP. Will add back lasix today. (9) Transaminitis: Code(s): R74.01 - Elevation of levels of liver transaminase levels Status: Acute Assessment and Plan: AST mildly elevated at 41 on admission but this has since normalized. Continue to monitor. (10) Leukopenia: Code(s): D72.819 - Decreased white blood cell count, unspecified Status: Acute Assessment and Plan: Resolved. Suspect due to viral infection. (11) HECTOR (obstructive sleep apnea): Code(s): G47.33 - Obstructive sleep apnea (adult) (pediatric) Status: Acute Assessment and Plan: Uses NIV at baseline. She is currently on BiPAP at night which is helping her with her respiratory
[2021-02-19] MEDS: INSULIN ASPART (*BKC) 100 UNITS/ML SUB-Q (17:07)
[2021-02-19 17:08] LABS: Glucose Point of Care 243 mg/dl (65-105)
[2021-02-19 20:26] LABS: Glucose Point of Care 127 mg/dl (65-105)
[2021-02-20] VITALS (20 sets, daily range): BP systolic 95–106; BP diastolic 59–64; PULSE 69–110; RESP 14–22; TEMP 36.2–36.6; O2SAT 88–97
[2021-02-20] MEDS: QUEtiapine FUMARATE 100 MG TABLET 200 MG PO ×2 (00:14→23:23)
[2021-02-20] MEDS: oxyCODONE HCL (*CRX) 5 MG TAB IR PO ×5 (00:14→23:23)
[2021-02-20] MEDS: ALBUTEROL SULFATE NEB 2.5 MG/0.5 ML INH 5 MG INHALATION ×3 (02:03→15:14)
[2021-02-20] MEDS: IPRATROPIUM BR 0.02% INH SOLN 0.5 MG/2.5 ML VIAL INHALATION ×3 (02:03→15:14)
[2021-02-20] MEDS: GABAPENTIN 300 MG CAPSULE PO ×3 (06:04→20:04)
[2021-02-20] MEDS: FLUTICASONE/UMECLIDIN/VILANTER 200-62.5-25 MCG ELLIPTA 1 PUFF INHALATION (08:04)
[2021-02-20] MEDS: ENOXAPARIN 40 MG/0.4 ML SYRINGE SUB-Q (09:21)
[2021-02-20] MEDS: ESCITALOPRAM OXALATE 10 MG TABLET 20 MG PO (09:21)
[2021-02-20] MEDS: LUBIPROSTONE 24 MCG CAPSULE PO ×2 (09:21→17:20)
[2021-02-20] MEDS: buPROPion HCL XL (24 HR) 150 MG TABCR PO (09:21)
[2021-02-20] MEDS: PANTOPRAZOLE 40 MG TABLET PO (09:21)
[2021-02-20] MEDS: FUROSEMIDE 20 MG TABLET PO (09:21)
[2021-02-20] MEDS: ACYCLOVIR 5% OINTMENT 15 GM TUBE 1 APPLIC TOPICAL ×5 (09:22→21:09)
--- NOTE | 2021-02-20 09:32 | PCDIET ---
Nutrition Follow-Up Complete: Nutrition Diagnosis: Altered nutritional status related to acute respiratory failure with hypoxia secondary to COVID-19 as evidenced by positive COVID-19 test and room isolation. Nutrition Goal: Meet estimated nutritional needs. Goal met. Patient consuming 100% of meals on regular diet. Family brings patient food from outside regularly. Recommend carbohydrate controlled diet to optimize glucose control. Last recorded weight is 78.6 kg. Recommend obtaining new weight. Bowel Motility: Last documented BM on 02/19/21. Labs Reviewed: Glu (127), Cr (0.5), Na (136), Alb (3.2) Meds Noted: Albuterol, Atrovent, Lasix, Decadron, Protonix, Amitiza Additional Notes: No documented skin breakdown. Will continue to monitor with same goal. Nutrition Monitoring and Evaluation: Follow up in 7 days.
--- NOTE | 2021-02-20 13:49 | HOMEO2EVAL ---
Addendum entered by Lauren Davis, RUNNER ON 02/20/21 15:54: In home o2 eval notes, please omit the word NO , The note should read HOME O2 NEEDED AT 4 L AT REST AND WITH EXERTION Original Note: Evaluation was performed at [facility] Home Oxygen Evaluation RC: Home Oxygen (O2) Evaluation Start: 02/20/21 10:48 Freq: ONCE Status: Active Protocol: RPE Activity Type Activity Date Activity User E-Sign Co-Sign Detail Recorded Client Recorded Date Recorded By Document 02/20/21 12:30 OCTAVIO [email or web address] 02/20/21 13:46 OCTAVIO Document 02/20/21 12:32 [email or web address] [email or web address] 02/20/21 13:49 OCTAVIO Document 02/20/21 12:33 OCTAVIO [email or web address] 02/20/21 13:49 OCTAVIO Document 02/20/21 12:34 OCTAVIO [email or web address] 02/20/21 13:49 OCTAVIO Document 02/20/21 12:35 OCTAVIO [email or web address] 02/20/21 13:46 OCTAVIO Document 02/20/21 12:40 [email or web address] [email or web address] 02/20/21 13:46 OCTAVIO 02/20/21 02/20/21 02/20/21 12:30 12:32 12:33 Home O2 Evaluation Test Phase Resting Resting Resting Oxygen Delivery Room Air Nasal Cannula Nasal Cannula Oxygen Flow Rate (L/min) 2 3 Pulse Oximetry (90-100 %) 87 L 87 L 87 L Home Oxygen Evaluation Comments Treatment Charges O2 Evaluation - Inpatient 02/20/21 02/20/21 02/20/21 12:34 12:35 12:40 Home O2 Evaluation Test Phase Resting Exercise Resting Oxygen Delivery Nasal Cannula Nasal Cannula Nasal Cannula Oxygen Flow Rate (L/min) 4 4 4 Pulse Oximetry (90-100 %) 91 91 92 Home Oxygen Evaluation Comments NO HOME O2 NEEDED AT 4 L AT REST AND WITH EXERTION. Treatment Charges O2 Evaluation - Inpatient
--- NOTE | 2021-02-20 13:50 | PCRCNOTE ---
Addendum entered by Lauren Davis, JOSH 02/20/21 17:07: Please disregard previous home O2 eval and note. Charted on wrong pt. Rox GARCIA aware. Original Note: HOME O2 EVAL DONE, PT REQUIRES 4 L AT REST AND WITH EXERTION. PT HAS IV RESP HALFWAY O2 CURRENTLY. PT ALSO HAS PORTABLE TANK FOR DISCHARGE IN ROOM. I WILL FAX UPDATED EVAL TO DME.
--- NOTE | 2021-02-20 15:36 | PM.DS ---
DS: Admitting Diagnosis Admitting Diagnosis Shortness of breath DS: Discharge Diagnosis Discharge Diagnosis (1) Pneumonia due to COVID-19 virus: Code(s): U07.1 - COVID-19; J12.82 - Pneumonia due to coronavirus disease 2019 Status: Acute Assessment and Plan: Pt tested positive for COVID 02/01/21 as a routine screening for a procedure and then began feeling SOB 02/06/21. CTA showing bilateral PNA, no PE. Patient unvaccinated for COVID. CXR 02/16/21 showing diffuse lung disease with interval worsening, consistent with pneumonia and/or pulmonary edema and/or acute respiratory distress syndrome (ARDS). Abx stopped since no signs of bacterial infection. She was treated with Dexamethasone and completed a course. Treated with Remdesivir for 7 days. Convalescent plasma given 02/08/21. She used NIV when needed and at night. She is improving with O2 requirement with home O2 evaluation today showing she needs 4L at rest and with activity. She feels comfortable going home today. She has completed her isolation. She will speak with her doctor about when she can have the vaccine (2) Acute respiratory failure with hypoxia: Code(s): J96.01 - Acute respiratory failure with hypoxia Status: Acute Assessment and Plan: Patient with COVID-19 present on admission resulting in acute hypoxic respiratory failure. Treatment plan as above. (3) COPD mixed type: Code(s): J44.9 - Chronic obstructive pulmonary disease, unspecified Status: Acute Assessment and Plan: Treatment as above. We continued with Trelegy, Albuterol and Atrovent and steroids. (4) Chronic narcotic use: Code(s): F11.90 - Opioid use, unspecified, uncomplicated Status: Acute Assessment and Plan: Pt takes Xtampza which is equivalent to 5mg Oxycodone IR Q6 hours for her chronic pack pain. We continued scheduled oxycodone. Narcan was available as needed. (5) Hypotension: Code(s): I95.9 - Hypotension, unspecified Status: Acute Assessment and Plan: Patient's blood pressure was monitored closely and BP was low at times. We held her Prazosin, Lasix and Spironolactone. BP improved and we were able to add back Lasix. She is also on narcotics which could have contributed to her soft blood pressure. (6) Cardiomegaly: Code(s): I51.7 - Cardiomegaly Status: Acute Assessment and Plan: Noted on imaging. Echo showed ejection fraction of 60-65%. No clear wall motion abnormality noticed. No evidence of diastolic dysfunction. Could be related to imaging technique. 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 Varner (8) Hyperkalemia: Code(s): E87.5 - Hyperkalemia Status: Acute Assessment and Plan: Resolved. Spironolactone and daily potassium remain on hold. (9) Transaminitis: Code(s): R74.01 - Elevation of levels of liver transaminase levels Status: Acute Assessment and Plan: AST mildly elevated at 41 on admission but this normalized. (10) Leukopenia: Code(s): D72.819 - Decreased white blood cell count, unspecified Status: Acute Assessment and Plan: Resolved. Suspect due to viral infection. (11) HECTOR (obstructive sleep apnea): Code(s): G47.33 - Obstructive sleep apnea (adult) (pediatric) Status: Acute Assessment and Plan: Uses NIV at baseline. She is currently on BiPAP at night which is helping her with her respiratory status as well. DS: Summary Time Spent with Patient Time attestation: Total time spent providing and/or coordinating discharge services: Exam Narrative: Exam Narrative: AF 97.1 95/60 107 20 92% 4L Gen - NARD lying semi-recumbent in bed Chest - distant but clear BS, nml RR CV - RRR S1/S2: tele showing no significant dysrhythmias Abd - S
--- NOTE | 2021-02-20 15:53 | PC.NURSE ---
Respiratory put a note in stating home O2 evaluation was done today. Spoke with patient and patient stated nobody came to do a home O2 evaluation today. Spoke with Theresa said she would try to contact sonido to find out what happened.
--- NOTE | 2021-02-20 17:10 | PCRCNOTE ---
Spoke to Rox in regards to the Home O2. Pt was unable to be weaned down to an acceptable home O2 liter flow for discharge. I tried oxymizer without any success. Pt back on 6 L high flow at this time. Will re-evaluate tommorrow.
[2021-02-20 17:18] LABS: Glucose Point of Care 170 mg/dl (65-105)
[2021-02-20 17:18] LABS: Glucose Point of Care 116 mg/dl (65-105)
[2021-02-20] MEDS: INSULIN ASPART (*BKC) 100 UNITS/ML SUB-Q (17:36)
[2021-02-20 17:38] LABS: Glucose Point of Care 225 mg/dl (65-105)
--- NOTE | 2021-02-20 19:05 | PM.IMPN ---
Progress Note: A&P Assessment and Plan (1) Pneumonia due to COVID-19 virus: Code(s): U07.1 - COVID-19; J12.82 - Pneumonia due to coronavirus disease 2019 Status: Acute Assessment and Plan: Pt tested positive for COVID 02/01/21 as a routine screening for a procedure and then began feeling SOB 02/06/21. CTA showing bilateral PNA, no PE. Patient unvaccinated for COVID. CXR 02/16/21 showing diffuse lung disease with interval worsening, consistent with pneumonia and/or pulmonary edema and/or acute respiratory distress syndrome (ARDS). Abx stopped since no signs of bacterial infection. She remains on Dexamethasone. Treated with Remdesivir for 7 days. Convalescent plasma given 02/08/21. She uses NIV when needed and at night. She is improving with O2 requirement but home O2 evaluation still shows significant hypoxia with exertion and difficulty recovery. She lori complete her isolation tomorrow. Check CXR in the morning (2) Acute respiratory failure with hypoxia: Code(s): J96.01 - Acute respiratory failure with hypoxia Status: Acute Assessment and Plan: Patient with COVID-19 present on admission resulting in acute hypoxic respiratory failure. Treatment plan as above. (3) COPD mixed type: Code(s): J44.9 - Chronic obstructive pulmonary disease, unspecified Status: Acute Assessment and Plan: Treatment as above. We continued with Trelegy, Albuterol and Atrovent and steroids. (4) Chronic narcotic use: Code(s): F11.90 - Opioid use, unspecified, uncomplicated Status: Acute Assessment and Plan: Pt takes Xtampza which is equivalent to 5mg Oxycodone IR Q6 hours for her chronic pack pain. We continued scheduled oxycodone. Narcan is available as needed. (5) Hypotension: Code(s): I95.9 - Hypotension, unspecified Status: Acute Assessment and Plan: Patient's blood pressure monitored closely and BP was low at times. We held her Prazosin, Lasix and Spironolactone. BP improved and we were able to add back Lasix. She is also on narcotics which could have contributed to her soft blood pressure. (6) Cardiomegaly: Code(s): I51.7 - Cardiomegaly Status: Acute Assessment and Plan: Noted on imaging. Echo showed ejection fraction of 60-65%. No clear wall motion abnormality noticed. No evidence of diastolic dysfunction. Could be related to imaging technique. 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 Varner (8) Hyperkalemia: Code(s): E87.5 - Hyperkalemia Status: Acute Assessment and Plan: Resolved. Spironolactone and daily potassium remain on hold. (9) Transaminitis: Code(s): R74.01 - Elevation of levels of liver transaminase levels Status: Acute Assessment and Plan: AST mildly elevated at 41 on admission but this normalized. (10) Leukopenia: Code(s): D72.819 - Decreased white blood cell count, unspecified Status: Acute Assessment and Plan: Resolved. Suspect due to viral infection. (11) HECTOR (obstructive sleep apnea): Code(s): G47.33 - Obstructive sleep apnea (adult) (pediatric) Status: Acute Assessment and Plan: Uses NIV at baseline. She is currently on BiPAP at night which is helping her with her respiratory status as well. Subjective Date/time seen: 02/20/21 19:05 Interval history: 50yo female with COPD, chronic pain and PTSD here for COVID PNA and acute respiratory failure. No CP or SOB. Yesterday, she dropped to 70% with home O2 evaluation and had a hard time recovering. She does not feel SOB when she becomes severely hypoxic. Eating okay. Up to the chair. A home O2 evaluation was placed in the chart on this patient but it was for a different patietn. Discharge was prepared but cancelled when discovered.
[2021-02-20 21:55] LABS: Glucose Point of Care 153 mg/dl (65-105)
--- NOTE | 2021-02-20 22:44 | PCRCNOTE ---
Window of time for administration has passed. See next scheduled administration.
[2021-02-21] VITALS (29 sets, daily range): BP systolic 90–120; BP diastolic 50–77; PULSE 68–136; RESP 12–22; TEMP 35.9–36.6; O2SAT 82–96
[2021-02-21 05:15] LABS: Basophils Percent Auto 0.2 % (0.2-1.2); Eosinophils Absolute Auto 0.1 K/mm3 (0-0.3); Eosinophils Percent Auto 0.5 % (0-4.4); Hematocrit 39.9 % (37.0-47.0); Immature Granulocyte Percent A 2.3 % (0-0.5); Lymphocytes Absolute Auto 2.67 K/mm3 (0.9-3.2); Lymphocytes Percent Auto 20.1 % (18.3-44.2); Mean Corpuscular HGB Conc 32.6 g/dl (32-36); Mean Corpuscular Hemoglobin 31.6 pg (26-34); Mean Corpuscular Volume 96.8 fl (80-100); Mean Platelet Volume 8.8 fl (7.4-10.4); Monocytes Absolute Auto 0.7 K/mm3 (0.1-0.6); Monocytes Percent Auto 5.3 % (2.6-8.5); Neutrophils Absolute Auto 9.5 K/mm3 (1.3-6.7); Neutrophils Percent Auto 71.6 % (45.5-73.1); Platelet Count Result 182 k/mm3 (150-375); Red Blood Count 4.12 M/mm3 (4.2-5.4); Red Cell Distribution Width 13.6 % (11.5-14.5); White Blood Count 13.3 K/mm3 (4.5-10.0)
[2021-02-21 05:31] LABS: Alanine Aminotransferase 29 U/L (4-35); Albumin Level 3.4 g/dL (3.5-5.1); Alkaline Phosphatase 72 U/L (38-126); Anion Gap 8 mmol/L (8-16); Aspartate Amino Transferase 22 U/L (14-36); Bilirubin,Total 0.4 mg/dL (0.2-1.3); Blood Urea Nitrogen 16 mg/dL (7-17); CRP < 0.5 mg/dL (<1.0); Calcium 9.3 mg/dL (8.4-10.2); Carbon Dioxide 30 mmol/L (22-30); Chloride 97 mmol/L (98-107); Estimated CRCL calculation 93 ml/min; Estimated Glomerular Filt Rate > 60; Glucose 101 mg/dL (65-110); Phosphorus 4.3 mg/dL (2.5-4.5); Potassium 3.7 mmol/L (3.4-5.0); Sodium 135 mmol/L (137-145)
[2021-02-21 08:49] LABS: Glucose Point of Care 70 mg/dl (65-105)
[2021-02-21] MEDS: ALBUTEROL SULFATE NEB 2.5 MG/0.5 ML INH 5 MG INHALATION ×4 (08:56→20:37)
[2021-02-21] MEDS: FLUTICASONE/UMECLIDIN/VILANTER 200-62.5-25 MCG ELLIPTA 1 PUFF INHALATION (08:56)
[2021-02-21] MEDS: IPRATROPIUM BR 0.02% INH SOLN 0.5 MG/2.5 ML VIAL INHALATION ×4 (08:56→20:38)
[2021-02-21] MEDS: oxyCODONE HCL (*CRX) 5 MG TAB IR PO ×3 (11:05→23:22)
[2021-02-21] MEDS: PANTOPRAZOLE 40 MG TABLET PO (11:07)
[2021-02-21] MEDS: ESCITALOPRAM OXALATE 10 MG TABLET 20 MG PO (11:07)
[2021-02-21] MEDS: FUROSEMIDE 20 MG TABLET PO (11:07)
[2021-02-21] MEDS: ENOXAPARIN 40 MG/0.4 ML SYRINGE SUB-Q (11:08)
[2021-02-21] MEDS: LUBIPROSTONE 24 MCG CAPSULE PO ×2 (11:08→17:40)
[2021-02-21] MEDS: buPROPion HCL XL (24 HR) 150 MG TABCR PO (11:08)
[2021-02-21] MEDS: ACYCLOVIR 5% OINTMENT 15 GM TUBE 1 APPLIC TOPICAL ×5 (11:08→21:14)
[2021-02-21 13:38] LABS: Glucose Point of Care 180 mg/dl (65-105)
--- NOTE | 2021-02-21 14:39 | PM.IMPN ---
Progress Note: A&P Assessment and Plan (1) Pneumonia due to COVID-19 virus: Code(s): U07.1 - COVID-19; J12.82 - Pneumonia due to coronavirus disease 2019 Status: Acute Assessment and Plan: CHEST X-RAY SHOWS MUCH IMPROVED INFILTRATES OVERALL IMPROVED Pt tested positive for COVID 02/01/21 as a routine screening for a procedure and then began feeling SOB 02/06/21. CTA showing bilateral PNA, no PE. Patient unvaccinated. CXR 02/16/21 showing diffuse lung disease with interval worsening, consistent with pneumonia and/or pulmonary edema and/or acute respiratory distress syndrome (ARDS). Abx stopped since no signs of bacterial infection. She is currently on Dexamethasone and this has been switched to IV and dose was increased to 10 mg IV once a day on 02/15. Will continue higher dose of dexamethasone and can be weaned based on her clinical and respiratory status improved. Remdesivir was stopped after 7 days. Convalescent plasma given 02/08/21. She continues on NIV when needed and at night. She is improving with O2 requirement down to 7L through high-flow nasal cannula. Inflammatory markers are trending down. Contineu close monitoring. (2) Acute respiratory failure with hypoxia: Code(s): J96.01 - Acute respiratory failure with hypoxia Status: Acute Assessment and Plan: STILL REQUIRING SUPPLEMENTAL OXYGEN TRY AND KEEP OXYGEN SATURATION AT 94% CONTINUE EFFORTS TO WEAN OFF OF OXYGEN Patient with COVID-19 present on admission resulting in acute hypoxic respiratory failure. Treatment plan as above. Wean oxygen as tolerated. (3) COPD mixed type: Code(s): J44.9 - Chronic obstructive pulmonary disease, unspecified Status: Acute Assessment and Plan: No acute exacerbation. No wheezing appreciated. Continue with Trelegy, Albuterol and Atrovent and steroids. (4) Chronic narcotic use: Code(s): F11.90 - Opioid use, unspecified, uncomplicated Status: Acute Assessment and Plan: Pt taxes Xtampza which is equivalent to 5mg Oxycodone IR Q6 hours for her chronic pack pain which has been continued. Narcan available as needed. (5) Hypotension: Code(s): I95.9 - Hypotension, unspecified Status: Acute Assessment and Plan: Patient's blood pressure was reviewed on 02/17 Blood pressure remains soft at times still despite being off the Prazosin, lasix and Spironolactone. She is also on narcotics which could be contributing to low blood pressure. Narcotics to be put on hold if her blood pressures to soft. Continue current parameters. (6) Cardiomegaly: Code(s): I51.7 - Cardiomegaly Status: Acute Assessment and Plan: Noted on imaging. Echo showed ejection fraction of 60-65%. No clear wall motion abnormality noticed. No evidence of diastolic dysfunction. 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 Varner (8) Hyperkalemia: Code(s): E87.5 - Hyperkalemia Status: Acute Assessment and Plan: Resolved. Spironolactone and daily potassium remain on hold. Lasix is on hold as well. (9) Transaminitis: Code(s): R74.01 - Elevation of levels of liver transaminase levels Status: Acute Assessment and Plan: AST mildly elevated at 41 on admission but this has since normalized. Continue to monitor while on remdesivir. (10) Leukopenia: Code(s): D72.819 - Decreased white blood cell count, unspecified Status: Acute Assessment and Plan: Resolved. Suspect due to viral infection. (11) HECTOR (obstructive sleep apnea): Code(s): G47.33 - Obstructive sleep apnea (adult) (pediatric) Status: Acute Assessment and Plan: Uses CPAP at baseline. She is currently on BiPAP overnight which is helping her with her respiratory status as well. (12) DVT pro
--- NOTE | 2021-02-21 15:45 | HOMEO2EVAL ---
Evaluation was performed at [facility] Home Oxygen Evaluation RC: Home Oxygen (O2) Evaluation Start: 02/20/21 10:48 Freq: ONCE Status: Active Protocol: RPE Activity Type Activity Date Activity User E-Sign Co-Sign Detail Recorded Client Recorded Date Recorded By Document 02/21/21 15:00 OCTAVIO [email or web address] 02/21/21 15:44 OCTAVIO Document 02/21/21 15:01 OCTAVIO [email or web address] 02/21/21 15:44 OCTAVIO Document 02/21/21 15:02 OCTAVIO [email or web address] 02/21/21 15:44 OCTAVIO Document 02/21/21 15:03 OCTAVIO [email or web address] 02/21/21 15:44 OCTAVIO Document 02/21/21 15:04 OCTAVIO [email or web address] 02/21/21 15:44 OCTAVIO Document 02/21/21 15:05 OCTAVIO [email or web address] 02/21/21 15:44 OCTAVIO Document 02/21/21 15:06 OCTAVIO [email or web address] 02/21/21 15:44 OCTAVIO Document 02/21/21 15:07 OCTAVIO [email or web address] 02/21/21 15:44 OCTAVIO Document 02/21/21 15:20 OCTAVIO [email or web address] 02/21/21 15:44 OCTAVIO 02/21/21 02/21/21 02/21/21 15:00 15:01 15:02 Home O2 Evaluation Test Phase Resting Resting Resting Oxygen Delivery Room Air High Flow High Flow Therapy with Therapy with Nasal Cannula Nasal Cannula Oxygen Flow Rate (L/min) 1 2 Pulse Oximetry (90-100 %) 82 L 83 L 84 L Pulse Rate (60-100 beats/min) Ambulation Distance (feet) Home Oxygen Evaluation Comments Treatment Charges O2 Evaluation - Inpatient 02/21/21 02/21/21 02/21/21 15:03 15:04 15:05 Home O2 Evaluation Test Phase Resting Resting Exercise Oxygen Delivery High Flow High Flow High Flow Therapy with Therapy with Therapy with Nasal Cannula Nasal Cannula Nasal Cannula Oxygen Flow Rate (L/min) 3 4 4 Pulse Oximetry (90-100 %) 86 L 93 85 L Pulse Rate (60-100 beats/min) 99 Ambulation Distance (feet) Home Oxygen Evaluation Comments Treatment Charges 02/21/21 02/21/21 02/21/21 15:06 15:07 15:20 Home O2 Evaluation Test Phase Exercise Exercise Resting Oxygen Delivery High Flow High Flow High Flow Therapy with Therapy with Therapy with Nasal Cannula Nasal Cannula Nasal Cannula Oxygen Flow Rate (L/min) 5 6 4 Pulse Oximetry (90-100 %) 86 L 89 L 93 Pulse Rate (60-100 beats/min) 136 H 136 H 101 H Ambulation Distance (feet) 40 Home Oxygen Evaluation Comments PT REQUIRES 4 L HIGH FLOW CANNULA AT REST AND 6 L HIGH FLOW CANNULA WITH EXERTION Treatment Charges
--- NOTE | 2021-02-21 16:10 | PCRCNOTE ---
HOME O2 ORDER AND REQUIRED PAPERWORK SENT TO [facility] [employer]. PT WILL NEED A TRANSPORT TANK PRIOR TO D/C. PLEASE CALL [employer] AND [employer] WILL BRING UP TANK TO HOSPITAL ROOM. [employer] PHONE # [phone]
[2021-02-21 17:39] LABS: Glucose Point of Care 158 mg/dl (65-105)
[2021-02-21] MEDS: GABAPENTIN 300 MG CAPSULE PO ×2 (17:40→21:14)
--- NOTE | 2021-02-21 20:19 | PC.NURSE ---
when patient discharges home O2 is 6L high flow. [employer] is the company to contact [phone]
[2021-02-21 20:34] LABS: Glucose Point of Care 172 mg/dl (65-105)
[2021-02-21] MEDS: QUEtiapine FUMARATE 100 MG TABLET 200 MG PO (23:13)
[2021-02-21] MEDS: BACLOFEN 10 MG TABLET 20 MG PO (23:22)
[2021-02-22] VITALS (22 sets, daily range): BP systolic 105–116; BP diastolic 63–70; PULSE 69–119; RESP 16–22; TEMP 36.1–36.6; O2SAT 90–98
[2021-02-22] MEDS: ALBUTEROL SULFATE NEB 2.5 MG/0.5 ML INH 5 MG INHALATION ×4 (02:13→21:44)
[2021-02-22] MEDS: IPRATROPIUM BR 0.02% INH SOLN 0.5 MG/2.5 ML VIAL INHALATION ×4 (02:14→21:45)
[2021-02-22] MEDS: GABAPENTIN 300 MG CAPSULE PO ×3 (06:09→22:43)
[2021-02-22] MEDS: oxyCODONE HCL (*CRX) 5 MG TAB IR PO ×3 (06:09→18:21)
[2021-02-22] MEDS: buPROPion HCL XL (24 HR) 150 MG TABCR PO (08:02)
[2021-02-22] MEDS: ACYCLOVIR 5% OINTMENT 15 GM TUBE 1 APPLIC TOPICAL ×3 (08:02→20:43)
[2021-02-22] MEDS: ENOXAPARIN 40 MG/0.4 ML SYRINGE SUB-Q (08:03)
[2021-02-22] MEDS: FUROSEMIDE 20 MG TABLET PO (08:03)
[2021-02-22] MEDS: PANTOPRAZOLE 40 MG TABLET PO (08:03)
[2021-02-22] MEDS: ESCITALOPRAM OXALATE 10 MG TABLET 20 MG PO (08:03)
[2021-02-22 08:19] LABS: Glucose Point of Care 82 mg/dl (65-105)
[2021-02-22] MEDS: LUBIPROSTONE 24 MCG CAPSULE PO ×2 (09:02→16:34)
[2021-02-22] MEDS: FLUTICASONE/UMECLIDIN/VILANTER 200-62.5-25 MCG ELLIPTA 1 PUFF INHALATION (09:32)
[2021-02-22 12:17] LABS: Basophils Percent Auto 0.3 % (0.2-1.2); Eosinophils Percent Auto 0.1 % (0-4.4); Hematocrit 42.6 % (37.0-47.0); Hemoglobin 13.7 g/dL (12.0-15.0); Immature Granulocyte Absolute 0.27 K/mm3 (0.00-0.031); Immature Granulocyte Percent A 2.1 % (0-0.5); Lymphocytes Absolute Auto 1.12 K/mm3 (0.9-3.2); Lymphocytes Percent Auto 8.9 % (18.3-44.2); Mean Corpuscular HGB Conc 32.2 g/dl (32-36); Mean Corpuscular Hemoglobin 31.5 pg (26-34); Mean Corpuscular Volume 97.9 fl (80-100); Mean Platelet Volume 8.9 fl (7.4-10.4); Monocytes Absolute Auto 0.3 K/mm3 (0.1-0.6); Monocytes Percent Auto 2.3 % (2.6-8.5); Neutrophils Absolute Auto 10.9 K/mm3 (1.3-6.7); Neutrophils Percent Auto 86.3 % (45.5-73.1); Platelet Count Result 186 k/mm3 (150-375); Red Blood Count 4.35 M/mm3 (4.2-5.4); Red Cell Distribution Width 14.1 % (11.5-14.5); White Blood Count 12.6 K/mm3 (4.5-10.0)
[2021-02-22 12:33] LABS: Anion Gap 11 mmol/L (8-16); Blood Urea Nitrogen 18 mg/dL (7-17); Calcium 9.2 mg/dL (8.4-10.2); Carbon Dioxide 26 mmol/L (22-30); Chloride 97 mmol/L (98-107); Estimated CRCL calculation 80 ml/min; Estimated Glomerular Filt Rate > 60; Glucose 177 mg/dL (65-110); Potassium 3.7 mmol/L (3.4-5.0); Sodium 134 mmol/L (137-145)
[2021-02-22] MEDS: INSULIN ASPART (*BKC) 100 UNITS/ML SUB-Q (13:10)
[2021-02-22 13:26] LABS: Glucose Point of Care 201 mg/dl (65-105)
--- NOTE | 2021-02-22 13:36 | P.PNIM_ITS ---
Progress Note: A&P Assessment and Plan (1) Pneumonia due to COVID-19 virus: Code(s): U07.1 - COVID-19; J12.82 - Pneumonia due to coronavirus disease 2019 Status: Acute Assessment and Plan: CHEST X-RAY SHOWS MUCH IMPROVED INFILTRATES OVERALL IMPROVED Pt tested positive for COVID 02/01/21 as a routine screening for a procedure and then began feeling SOB 02/06/21. CTA showing bilateral PNA, no PE. Patient unv accinated. CXR 02/16/21 showing diffuse lung disease with interval worsening, consistent with pneumonia and/or pulmonary edema and/or acute respiratory distress syndrome (ARDS). Abx stopped since no signs of bacterial infection. She is currently on Dexamethasone and this has been switched to IV and dose was increased to 10 mg IV once a day on 02/15. Will continue higher dose of dexamethasone and can be weaned based on her clinical and respiratory status improved. Remdesivir was stopped after 7 days. Convalescent plasma given 02/08/21. She continues on NIV when needed and at night. She is improving with O2 requirement down to 7L through high-flow nasal cannula. Inflammatory markers are trending down. Contineu close monitoring. (2) Acute respiratory failure with hypoxia: Code(s): J96.01 - Acute respiratory failure with hypoxia Status: Acute Assessment and Plan: STILL REQUIRING SUPPLEMENTAL OXYGEN TRY AND KEEP OXYGEN SATURATION AT 94% CONTINUE EFFORTS TO WEAN OFF OF OXYGEN Patient with COVID-19 present on admission resulting in acute hypoxic respiratory failure. Treatment plan as above. Wean oxygen as tolerated. (3) COPD mixed type: Code(s): J44.9 - Chronic obstructive pulmonary disease, unspecified Status: Acute Assessment and Plan: No acute exacerbation. No wheezing appreciated. Continue with Trelegy, Albuterol and Atrovent and steroids. (4) Chronic narcotic use: Code(s): F11.90 - Opioid use, unspecified, uncomplicated Status: Acute Assessment and Plan: Pt taxes Xtampza which is equivalent to 5mg Oxycodone IR Q6 hours for her chronic pack pain which has been continued. Narcan available as needed. (5) Hypotension: Code(s): I95.9 - Hypotension, unspecified Status: Acute Assessment and Plan: Patient's blood pressure was reviewed on 02/17 Blood pressure remains soft at times still despite being off the Prazosin, lasix and Spironolactone. She is also on narcotics which could be contributing to low blood pressure. Narcotics to be put on hold if her blood pressures to soft. Continue current parameters. (6) Cardiomegaly: Code(s): I51.7 - Cardiomegaly Status: Acute Assessment and Plan: Noted on imaging. Echo showed ejection fraction of 60-65%. No clear wall motion abnormality noticed. No evidence of diastolic dysfunction. 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 Vraner (8) Hyperkalemia: Code(s): E87.5 - Hyperkalemia Status: Acute Assessment and Plan: Resolved. Spironolactone and daily potassium remain on hold. Lasix is on hold as well. (9) Transaminitis: Code(s): R74.01 - Elevation of levels of liver transaminase levels Status: Acute Assessment and Plan: AST mildly elevated at 41 on admission but this has since normalized. Continue to monitor while on remdesivir. (10) Leukopenia: Code(s): D72.819 - Decreased white blood cell count, unspecif
[2021-02-22] MEDS: BACLOFEN 10 MG TABLET 20 MG PO (16:36)
[2021-02-22 18:46] LABS: Glucose Point of Care 145 mg/dl (65-105)
[2021-02-22 20:35] LABS: Glucose Point of Care 218 mg/dl (65-105)
[2021-02-22] MEDS: QUEtiapine FUMARATE 100 MG TABLET 200 MG PO (22:43)
[2021-02-23] VITALS (18 sets, daily range): BP systolic 97–151; BP diastolic 54–84; PULSE 71–115; RESP 16–22; TEMP 36.1–36.6; O2SAT 91–95
[2021-02-23] MEDS: oxyCODONE HCL (*CRX) 5 MG TAB IR PO ×4 (00:08→17:31)
[2021-02-23] MEDS: BACLOFEN 10 MG TABLET 20 MG PO (00:08)
[2021-02-23] MEDS: ALBUTEROL SULFATE NEB 2.5 MG/0.5 ML INH 5 MG INHALATION ×4 (01:29→21:00)
[2021-02-23] MEDS: IPRATROPIUM BR 0.02% INH SOLN 0.5 MG/2.5 ML VIAL INHALATION ×4 (01:29→21:00)
[2021-02-23] MEDS: GABAPENTIN 300 MG CAPSULE PO ×3 (06:03→22:11)
[2021-02-23] MEDS: LUBIPROSTONE 24 MCG CAPSULE PO ×2 (08:52→17:29)
[2021-02-23] MEDS: buPROPion HCL XL (24 HR) 150 MG TABCR PO (08:53)
[2021-02-23] MEDS: ESCITALOPRAM OXALATE 10 MG TABLET 20 MG PO (08:53)
[2021-02-23] MEDS: FUROSEMIDE 20 MG TABLET PO (08:53)
[2021-02-23] MEDS: ENOXAPARIN 40 MG/0.4 ML SYRINGE SUB-Q (08:53)
[2021-02-23] MEDS: PANTOPRAZOLE 40 MG TABLET PO (08:54)
--- NOTE | 2021-02-23 09:00 | PCOTNOTE ---
Attempted OT evaluation, patient declined at this time, wanting to fishing breakfast, will attempt at later time.
[2021-02-23 09:10] LABS: Glucose Point of Care 72 mg/dl (65-105)
[2021-02-23] MEDS: FLUTICASONE/UMECLIDIN/VILANTER 200-62.5-25 MCG ELLIPTA 1 PUFF INHALATION (09:15)
--- NOTE | 2021-02-23 13:12 | PM.IMPN ---
Progress Note: A&P Assessment and Plan (1) Pneumonia due to COVID-19 virus: Code(s): U07.1 - COVID-19; J12.82 - Pneumonia due to coronavirus disease 2019 Status: Acute Assessment and Plan: CHEST X-RAY SHOWS MUCH IMPROVED INFILTRATES OVERALL IMPROVED OF OF BIPAP ON OXYGEN BY NASAL CANNULA Pt tested positive for COVID 02/01/21 as a routine screening for a procedure and then began feeling SOB 02/06/21. CTA showing bilateral PNA, no PE. Patient unvaccinated. CXR 02/16/21 showing diffuse lung disease with interval worsening, consistent with pneumonia and/or pulmonary edema and/or acute respiratory distress syndrome (ARDS). Abx stopped since no signs of bacterial infection. She is currently on Dexamethasone and this has been switched to IV and dose was increased to 10 mg IV once a day on 02/15. Will continue higher dose of dexamethasone and can be weaned based on her clinical and respiratory status improved. Remdesivir was stopped after 7 days. Convalescent plasma given 02/08/21. She continues on NIV when needed and at night. She is improving with O2 requirement down to 7L through high-flow nasal cannula. Inflammatory markers are trending down. Contineu close monitoring. (2) Acute respiratory failure with hypoxia: Code(s): J96.01 - Acute respiratory failure with hypoxia Status: Acute Assessment and Plan: STILL REQUIRING SUPPLEMENTAL OXYGEN TRY AND KEEP OXYGEN SATURATION AT 94% CONTINUE EFFORTS TO WEAN OFF OF OXYGEN OFF OF BIPAP Patient with COVID-19 present on admission resulting in acute hypoxic respiratory failure. Treatment plan as above. Wean oxygen as tolerated. (3) COPD mixed type: Code(s): J44.9 - Chronic obstructive pulmonary disease, unspecified Status: Acute Assessment and Plan: No acute exacerbation. No wheezing appreciated. Continue with Trelegy, Albuterol and Atrovent and steroids. (4) Chronic narcotic use: Code(s): F11.90 - Opioid use, unspecified, uncomplicated Status: Acute Assessment and Plan: Pt taxes Xtampza which is equivalent to 5mg Oxycodone IR Q6 hours for her chronic pack pain which has been continued. Narcan available as needed. (5) Hypotension: Code(s): I95.9 - Hypotension, unspecified Status: Acute Assessment and Plan: Patient's blood pressure was reviewed on 02/17 Blood pressure remains soft at times still despite being off the Prazosin, lasix and Spironolactone. She is also on narcotics which could be contributing to low blood pressure. Narcotics to be put on hold if her blood pressures to soft. Continue current parameters. (6) Cardiomegaly: Code(s): I51.7 - Cardiomegaly Status: Acute Assessment and Plan: Noted on imaging. Echo showed ejection fraction of 60-65%. No clear wall motion abnormality noticed. No evidence of diastolic dysfunction. 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 Varner (8) Hyperkalemia: Code(s): E87.5 - Hyperkalemia Status: Acute Assessment and Plan: Resolved. Spironolactone and daily potassium remain on hold. Lasix is on hold as well. (9) Transaminitis: Code(s): R74.01 - Elevation of levels of liver transaminase levels Status: Acute Assessment and Plan: AST mildly elevated at 41 on admission but this has since normalized. Continue to monitor while on remdesivir. (10) Leukopenia: Code(s): D72.819 - Decreased white blood cell count, unspecified Status: Acute Assessment and Plan: Resolved. Suspect due to viral infection. (11) HECTOR (obstructive sleep apnea): Code(s): G47.33 - Obstructive sleep apnea (adult) (pediatric) Status: Acute Assessment and Plan: Uses CPAP at baseline. She is currently on BiPAP overnight which is helping he
[2021-02-23 14:36] LABS: Glucose Point of Care 147 mg/dl (65-105)
[2021-02-23 14:54] LABS: Add Urine Microscopic? YES; Appearance Urine Clear (Clear); Bilirubin Urine Negative (Negative); Blood Urine Negative (Negative); Calcium Oxalate Crystals Urine Present /hpf; Color Urine Yellow (Yellow); Glucose Urine UA Negative (Negative); Ketones Urine Negative (Negative); Leukocyte Esterase Ur Negative LEU/UL (NEGATIVE); Nitrate Urine Negative (Negative); Protein Urine Negative (Negative); RBC Urine 0-2 /hpf (0-2); Specific Grav Ur 1.016 (1.001-1.035); WBC Urine 0-3 /hpf (0-3)
[2021-02-23 18:07] LABS: Glucose Point of Care 160 mg/dl (65-105)
--- NOTE | 2021-02-23 19:14 | PC.NURSE ---
Patient received from IMU, report received from RADHA Levy.
[2021-02-23] MEDS: QUEtiapine FUMARATE 100 MG TABLET 200 MG PO (22:11)
[2021-02-23] MEDS: ACETAMINOPHEN 325 MG TABLET 650 MG PO (22:11)
[2021-02-24] VITALS (13 sets, daily range): BP systolic 106; BP diastolic 61; PULSE 75–127; RESP 16–24; TEMP 36.3; O2SAT 85–96
[2021-02-24] MEDS: IPRATROPIUM BR 0.02% INH SOLN 0.5 MG/2.5 ML VIAL INHALATION ×2 (02:17→09:47)
[2021-02-24] MEDS: ALBUTEROL SULFATE NEB 2.5 MG/0.5 ML INH 5 MG INHALATION ×2 (02:17→09:47)
[2021-02-24 04:10] LABS: Glucose Point of Care 133 mg/dl (65-105)
[2021-02-24] MEDS: GABAPENTIN 300 MG CAPSULE PO (06:36)
[2021-02-24 08:06] LABS: Glucose Point of Care 89 mg/dl (65-105)
[2021-02-24] MEDS: ACETAMINOPHEN 325 MG TABLET 650 MG PO (08:56)
[2021-02-24] MEDS: PANTOPRAZOLE 40 MG TABLET PO (08:59)
[2021-02-24] MEDS: ENOXAPARIN 40 MG/0.4 ML SYRINGE SUB-Q (09:00)
[2021-02-24] MEDS: buPROPion HCL XL (24 HR) 150 MG TABCR PO (09:00)
[2021-02-24] MEDS: ESCITALOPRAM OXALATE 10 MG TABLET 20 MG PO (09:00)
[2021-02-24] MEDS: FUROSEMIDE 20 MG TABLET PO (09:00)
[2021-02-24] MEDS: oxyCODONE HCL (*CRX) 5 MG TAB IR PO (09:09)
[2021-02-24] MEDS: FLUTICASONE/UMECLIDIN/VILANTER 200-62.5-25 MCG ELLIPTA 1 PUFF INHALATION (09:55)
--- NOTE | 2021-02-24 09:58 | HOMEO2EVAL ---
Evaluation was performed at [facility] Home Oxygen Evaluation RC: Home Oxygen (O2) Evaluation Start: 02/24/21 07:43 Freq: ONCE Status: Active Protocol: RPE Activity Type Activity Date Activity User E-Sign Co-Sign Detail Recorded Client Recorded Date Recorded By Document 02/24/21 09:38 KRM [email or web address] 02/24/21 09:58 KRM Document 02/24/21 09:40 KRM [email or web address] 02/24/21 09:58 KRM Document 02/24/21 09:41 KRM [email or web address] 02/24/21 09:58 KRM Document 02/24/21 09:42 KRM [email or web address] 02/24/21 09:58 KRM Document 02/24/21 09:44 KRM [email or web address] 02/24/21 09:58 KRM Document 02/24/21 09:45 KRM [email or web address] 02/24/21 09:58 KRM Document 02/24/21 09:46 KRM [email or web address] 02/24/21 09:58 KRM Document 02/24/21 09:48 KRM [email or web address] 02/24/21 09:58 KRM 02/24/21 02/24/21 02/24/21 09:38 09:40 09:41 Home O2 Evaluation Test Phase Resting Resting Resting Oxygen Delivery Room Air Nasal Cannula Nasal Cannula Oxygen Flow Rate (L/min) 1 2 Pulse Oximetry (90-100 %) 85 L 87 L 89 L Pulse Rate (60-100 beats/min) 91 92 92 Activity Tolerance Ambulation Distance (feet) Home Oxygen Evaluation Comments Treatment Charges O2 Evaluation - Inpatient 02/24/21 02/24/21 02/24/21 09:42 09:44 09:45 Home O2 Evaluation Test Phase Resting Exercise Exercise Oxygen Delivery Nasal Cannula Nasal Cannula Nasal Cannula Oxygen Flow Rate (L/min) 3 3 4 Pulse Oximetry (90-100 %) 92 89 L 87 L Pulse Rate (60-100 beats/min) 91 111 H 114 H Activity Tolerance Good Good Ambulation Distance (feet) Home Oxygen Evaluation Comments Treatment Charges 02/24/21 02/24/21 09:46 09:48 Home O2 Evaluation Test Phase Exercise Exercise Oxygen Delivery Nasal Cannula Nasal Cannula Oxygen Flow Rate (L/min) 5 6 Pulse Oximetry (90-100 %) 87 L 90 Pulse Rate (60-100 beats/min) 113 H 113 H Activity Tolerance Good Good Ambulation Distance (feet) 100 Home Oxygen Evaluation Comments 3lpm at rest, 6lpm with activity. Treatment Charges
--- NOTE | 2021-02-24 11:07 | PM.DS ---
DS: Admitting Diagnosis Admitting Diagnosis Shortness of breath DS: Discharge Diagnosis Discharge Diagnosis (1) Pneumonia due to COVID-19 virus: Code(s): U07.1 - COVID-19; J12.82 - Pneumonia due to coronavirus disease 2019 Status: Acute Assessment and Plan: Pt tested positive for COVID 02/01/21 as a routine screening for a procedure and then began feeling SOB 02/06/21. CTA showing bilateral PNA, no PE. Patient unvaccinated. CXR 02/16/21 showing diffuse lung disease with interval worsening, consistent with pneumonia and/or pulmonary edema and/or acute respiratory distress syndrome (ARDS). Abx stopped since no signs of bacterial infection. She was treated with Albuterol, Atrovent nebs and Dexamethasone that was increased to 10 mg IV once a day on 02/15. Remdesivir was stopped after 7 days. Convalescent plasma given 02/08/21. She used NIV when needed and at night. Inflammatory markers trended down. Able to wean O2 as tolerated. (2) Acute respiratory failure with hypoxia: Code(s): J96.01 - Acute respiratory failure with hypoxia Status: Acute Assessment and Plan: Patient with COVID-19 present on admission resulting in acute hypoxic respiratory failure. Treatment as outlined above. (3) COPD mixed type: Code(s): J44.9 - Chronic obstructive pulmonary disease, unspecified Status: Acute Assessment and Plan: Not felt to have an acute exacerbation but was treated with steroids. We continued with her Trelegy. Albuterol, Atrovent and steroid treatment as above. (4) Chronic narcotic use: Code(s): F11.90 - Opioid use, unspecified, uncomplicated Status: Acute Assessment and Plan: Pt taxes Xtampza which is equivalent to 5mg Oxycodone IR Q6 hours for her chronic pack pain which was continued here. Narcan available as needed. (5) Hypotension: Code(s): I95.9 - Hypotension, unspecified Status: Acute Assessment and Plan: Patient's blood pressure was monitored closely and it remained soft at times still despite being off the Prazosin, Lasix and Spironolactone. She is also on narcotics which could be contributing to low blood pressure. Parameters were written for. Able to resume lasix safely. (6) Cardiomegaly: Code(s): I51.7 - Cardiomegaly Status: Acute Assessment and Plan: Noted on imaging. Echo showed ejection fraction of 60-65%. No clear wall motion abnormality noticed. No evidence of diastolic dysfunction. (7) Osteoma of face: Code(s): D16.4 - Benign neoplasm of bones of skull and face Status: Acute Assessment and Plan: Stable. f/u with Dr. Varner (8) Hyperkalemia: Code(s): E87.5 - Hyperkalemia Status: Acute Assessment and Plan: Resolved. Spironolactone and daily potassium remain on hold. (9) Transaminitis: Code(s): R74.01 - Elevation of levels of liver transaminase levels Status: Acute Assessment and Plan: AST mildly elevated at 41 on admission but this has since normalized. (10) Leukopenia: Code(s): D72.819 - Decreased white blood cell count, unspecified Status: Acute Assessment and Plan: Resolved. Suspect due to viral infection. (11) HECTOR (obstructive sleep apnea): Code(s): G47.33 - Obstructive sleep apnea (adult) (pediatric) Status: Acute Assessment and Plan: Uses CPAP at baseline. DS: Summary Hospital Course Reason for hospitalization: 50yo female here for acute respiratory failure related to COVID PNA. Please see H&P for details. Hospital Course: Please see above for details of hospital course. Status at Discharge Cognitive/behavioral status at discharge: stable Time Spent with Patient Time attestation: Total time spent providing and/or coordinating discharge services:38 minutes Time spent: Greater than 30 minutes Exam Narrative: Exam Narr
[2021-02-24 11:59] LABS: Glucose Point of Care 191 mg/dl (65-105)
== END 2021-02-24 12:41 | disposition home or self-care (01) | DRG 177 ==
LOC: ANHED 23:04 → ANH3MEDSUR 23:15 → ANHIMU 02-10 02:50 → ANH3MEDSUR 02-25 11:10 → ANHIMU 02-25 11:10
PROVIDERS: Internal Medicine Critical Care Medicine; Physician Assistant; Admitting Provider Internal Medicine; Emergency Provider Emergency Medicine; PCP Family Medicine; Visit Provider Internal Medicine
DX: U07.1 COVID-19 (principal); J96.01 Acute respiratory failure with hypoxia; J12.82 Pneumonia due to coronavirus disease 2019; J44.0 Chronic obstructive pulmonary disease with (acute) lower respiratory infection; I95.9 Hypotension, unspecified; E87.5 Hyperkalemia; R74.01 Elevation of levels of liver transaminase levels; G47.33 Obstructive sleep apnea (adult) (pediatric); D72.819 Decreased white blood cell count, unspecified; F11.90 Opioid use, unspecified, uncomplicated; G89.29 Other chronic pain; M54.9 Dorsalgia, unspecified; D16.4 Benign neoplasm of bones of skull and face; I51.7 Cardiomegaly; F43.10 Post-traumatic stress disorder, unspecified; Z79.899 Other long term (current) drug therapy
CPT/HCPCS: 36415; 36430; 36600; 71045; 71275; 80048; 80053; 80076; 81001; 82375; 82565; 82728; 82805; 82948; 83050; 83605; 83615; 83735; 84100; 84145; 84460; 85025; 85027; 85055; 85380; 85610; 85730; 86140; 86900; 86901; 87040; 93005; 93306; 94002; 94003; 94618; 94640; 96374; 96375; 97162; 97165; 99285; A9270; G0378; J1100; J1650; J1815; J1956; J7050; J8540; P9059; Q9967

== ENCOUNTER 2021-04-12 10:20 | Outpatient (CLI) | payer MEDICARE, MEDICAID, SELFPAY ==
--- NOTE | ~2021-04-12 | MR_ITS ---
EXAMINATION: MR brain/brain stem wo con EXAM DATE: 04/12/2021 11:13 INDICATION: G43.909 - Migraine, unspecified, not intractable, without... TECHNIQUE: Magnetic resonance imaging (MRI) of the brain/brain stem obtained without contrast. Terry thomas T1, axial diffusion, gradient echo (T2*), T1, T2, FLAIR sequences obtained. There is no prior st udy for comparison. FINDINGS: There are no areas of restricted diffusion to suggest acute infarction. There is no acute hemorrhage seen on the T2*, a hemosiderin sensitive sequence. No intraparenchymal brain mass lesion. There is a few small scattered periventricular and subcortical T2/FLAIR signal hyperintensities, non specific but probably related to small vessel ischemic disease (microangiopathy). There are no extr a-axial collections. Flow voids are seen in the cerebral arteries on the T2-weighted sequences consi stent with their expected patency. The orbits are unremarkable. Soft tissue is unremarkable. IMPRESSION: 1. No acute intracranial findings. 2. Minimal microangiopathy. Reviewed, dictated and finalized at location A.
== END 2021-04-12 10:21 | disposition home or self-care (01) ==
PROVIDERS: PCP Family Medicine; Visit Provider Nurse Practitioner Family
DX: G43.909 Migraine, unspecified, not intractable, without status migrainosus (principal); R25.2 Cramp and spasm; I73.9 Peripheral vascular disease, unspecified
CPT/HCPCS: 70551

== ENCOUNTER 2021-07-09 08:56 | Outpatient (CLI) | payer MEDICARE, MEDICAID, SELFPAY ==
--- NOTE | ~2021-07-09 | MR_ITS ---
EXAMINATION: MR hip RT wo con DATE: 07/09/2021 10:33 INDICATION: Right hip pain and changing date with difficulty bearing weight since injury with audible pop multiple months prior. TECHNIQUE: Magnetic resonance imaging (MRI) of the right hip was performed without intravenous contr ast. Sequences included full-field axial PD-weighted FS FSE and T1-weighted FSE, coronal of the pelvi s with PD-weighted FS FSE, T2-weighted FSE and T1-weighted FSE, small field of view of the right hip with axial PD-weighted FS FSE, sagittal PD-weighted FS FSE, coronal PD-weighted FS FSE and coronal T2 weighted FSE. Additional radial T1-weighted FGR oriented orthogonal to the acetabular rim were obt ained for evaluation of the labrum. COMPARISON: None FINDINGS: Bones/labrum/cartilage: Alignment is normal. No fracture, avascular necrosis or pathologic marrow replacing process. Mild ri ght hip osteoarthritis with degeneration at the superolateral right acetabular labrum. Mild lumbar sp ondylosis. Fluid: Symmetric physiologic amount of fluid within both hip joints. Mild right gluteus medius and minimus b ursitis. Soft tissues: Normal and symmetric muscle bulk and signal in the pelvis and visualized proximal thighs. The bilater al iliopsoas, left gluteal and bilateral proximal hamstring tendons are normal. Mild tendinopathy of the right gluteus medias and minimus tendons. There is mild partial-thickness tear involving a portio n of the lateral facet footplate of the right gluteus medius tendon. T-shaped IUD in expected positio n within the endometrial canal of the anteverted uterus. Limited evaluation of visceral organs of the pelvis is otherwise unremarkable. No pathologically enlarged pelvic/inguinal lymphadenopathy. IMPRESSION: 1. Mild right gluteus medius and minimus tendinopathy with associated mild bursitis and small partial thickness tear at the distal gluteus medius tendon. 2. Mild right hip osteoarthritis with degeneration of the posterior superior glenoid labrum. 3. IUD in expected position. Reviewed, dictated and finalized at location B. R COATER IMPRESSION: 1. Mild right gluteus medius and minimus tendinopathy with associated mild burs itis and small partial thickness tear at the distal gluteus medius tendon. 2. Mild right hip osteoarthritis with degeneration of the posterior superior gl enoid labrum. 3. IUD in expected position.
[2021-07-09 11:43] LABS: Basophils Absolute Auto 0.1 K/mm3 (0.0-0.1); Basophils Percent Auto 0.6 % (0.2-1.2); Eosinophils Absolute Auto 0.3 K/mm3 (0-0.3); Eosinophils Percent Auto 4.3 % (0-4.4); Hematocrit 46.5 % (37.0-47.0); Hemoglobin 15.6 g/dL (12.0-15.0); Immature Granulocyte Absolute 0.03 K/mm3 (0.00-0.031); Immature Granulocyte Percent A 0.4 % (0-0.5); Lymphocytes Absolute Auto 1.75 K/mm3 (0.9-3.2); Lymphocytes Percent Auto 22.1 % (18.3-44.2); Mean Corpuscular HGB Conc 33.5 g/dl (32-36); Mean Corpuscular Hemoglobin 32.6 pg (26-34); Mean Corpuscular Volume 97.1 fl (80-100); Mean Platelet Volume 8.9 fl (7.4-10.4); Monocytes Absolute Auto 0.6 K/mm3 (0.1-0.6); Monocytes Percent Auto 7.2 % (2.6-8.5); Neutrophils Absolute Auto 5.2 K/mm3 (1.3-6.7); Neutrophils Percent Auto 65.4 % (45.5-73.1); Platelet Count Result 213 k/mm3 (150-375); Red Blood Count 4.79 M/mm3 (4.2-5.4); Red Cell Distribution Width 13.1 % (11.5-14.5); White Blood Count 7.9 K/mm3 (4.5-10.0)
[2021-07-09 11:55] LABS: Creatine Kinase 38 U/L (30-135)
[2021-07-09 12:03] LABS: Rheumatoid Factor < 8.6 IU/ML (<12)
[2021-07-09 12:32] LABS: HIV 1/2 Ab P24 Ag Result Negative (Negative)
[2021-07-09 12:48] LABS: Erythrocyte Sedimentation Rate 15 mm/hr (0-20)
[2021-07-11 21:53] LABS: CRP, High Sensitivity 5.5 mg/L (***)
[2021-07-13 11:46] LABS: Aldolase 5.7 U/L (<=8.1)
== END 2021-07-09 08:57 | disposition home or self-care (01) ==
LOC: ANHIMG 08:57
PROVIDERS: PCP Family Medicine; Visit Provider Nurse Practitioner Family
DX: J84.89 Other specified interstitial pulmonary diseases (principal); Z11.4 Encounter for screening for human immunodeficiency virus [HIV]; M70.71 Other bursitis of hip, right hip; M17.11 Unilateral primary osteoarthritis, right knee; S76.011A Strain of muscle, fascia and tendon of right hip, initial encounter; Z97.5 Presence of (intrauterine) contraceptive device
CPT/HCPCS: 36415; 73721; 82085; 82550; 85025; 85652; 86141; 86430; 86703; G0432

== ENCOUNTER 2021-07-17 01:40 | Day surgery (SDC) | payer MEDICARE, MEDICAID, SELFPAY ==
[2021-07-15 14:48] VITALS: BMI 33.7
--- NOTE | 2021-07-15 15:14 | PC.NURSE ---
Report to the Outpatient Waiting Room, entrance under the green pavilion located off [facility], at time _1100 on date _07/17/21 . OR Time: ___1300 . - You and your visitor will be asked a series of questions to screen for COVID 19 for your protection. - A mask is required within the hospital. - Only one visitor is allowed at this time. Patient visitors will be guided where to wait when not with patient. Preoperative COVID Testing Requirements: No COVID Test needed if: (proof is required; if not received patient will have Rapid Test prior to entry) - Patient has received COVID Vaccine at least 14 days prior to procedure date or - Patient has positive COVID test result within last 90 days of surgery date. COVID Test needed if above criteria is not met If not COVID vaccinated a COVID test must be conducted within 72 hours of surgery and patient is asked to isolate self from time of testing until procedure. You will go to the [employer] [facility] Site for your COVID testing. The [employer] [facility] is located at the corner of [address] [facility]. You will only be called if COVID results are positive and your surgeon may reschedule your elective surgery date. Patients may have clear liquids (water, carbonated beverages, clear teas, apple juice) until 3 hours prior to surgery with a maximum of 20 ounces. - No food from midnight until time of surgery - Infants may have breast milk until 4 hours before surgery, infant formula 6 hours prior to surgery. - Children will be allowed to drink immediately following surgery. If applicable, please bring a bottle or sippy cup to assist with drinking. Juice, water, soda, and popsicles are readily available. For infants on formula, please bring formula the day of surgery. Pacifiers are allowed. Take the following medications with a SIP of water the morning of surgery: __ALBUTEROL NEB. OR INHALER, BUPROPRION, ESCITALOPRAM,GABAPENTIN, OXYCODONE, IMITREX PRN Medications to discontinue per physician NONE Date to take last dose Please no make-up, nail citizen of the [place], hairspray, perfume, deodorant, or body powder the day of surgery. No jewelry (including any body piercings) or valuables the day of surgery, leave them at home. Please take a shower or bath the night before, or the morning of, surgery with an antibacterial soap. Wear comfortable, loose fitting clothing. Children are encouraged to wear pajamas. - Jewelry must be removed prior to entering the operating room. Rings and piercings that are not removed may be cut off. - The hospital will not accept responsibility for valuables. - Please leave all valuables, including medications, at home the day of surgery. If you are going home after surgery, a licensed vending route driver must drive you home. - NO public transportation without another adult. - We recommend that an adult stay with you for 24 hours following discharge. - We also recommend that you do not drive, make important decision, drink alcoholic beverages, or take any drugs that were not prescribed by your health care provider for at least 24 hours after your discharge time. For Pediatric surgeries, we recommend two adults accompany the child home (only one inside the building at this time). Follow any additional instructions given to you from your surgeon. Telephone instructions given to __PATIENT and asked if any additional questions and then verbalized understanding. Patient advised to call surgeon office or pre surgery nurse liaison [phone] if any additional questions.
[2021-07-17] VITALS (9 sets, daily range): BP systolic 87–114; BP diastolic 64–87; PULSE 69–85; RESP 8–20; TEMP 36.3–36.6; O2SAT 96–98
--- NOTE | 2021-07-17 10:05 | WPDHPUPDATE1 ---
History and Physical Update Update Date/Time: 07/17/21 10:05 History and Physical has been reviewed, including an updated exam of the patient. There are NO changes in the patient's condition. Risks, benefits, and alternatives have been discussed and questions answered. Patient agrees to proceed with procedure.
--- NOTE | 2021-07-17 10:08 | W.PM.PROC2 ---
Procedure Note - Detailed Date of Procedure 07/17/21 Pre-op Diagnosis osteoma right forehead Post-op Diagnosis same Procedure Performed Excision osteoma right forehead 1.2cm Surgeon Walter Varner MD Anesthesia general Description of Procedure Preoperatively the risks, benefits, alternatives were again discussed in great detail. I want her to be very realistic about the risks involved as well as expectations. We discussed where the facial nerve is passing. The risk of injury to this. All questions were answered to her satisfaction today. Consent obtained. She was marked in the preoperative holding area with her verification. She was taken to the operating room placed supine on the operating room table. Anesthesia provided by anesthesiology and prepped and draped in a standard sterile fashion. Surgical time-out was taken. 1% lidocaine and 0.25% Marcaine with epinephrine was used anesthetize locally. Fifteen blade used to make an incision and dissection was continued down protecting neurovascular and other structures until the mass was identified. This did appear to be an osteoma was completely removed using a rongeur. Copiously irrigated. I then closed with 4-0 Monocryl in the muscle followed by 5 0 nylon in the skin. She tolerated the procedure well. Estimated Blood Loss 5 Drains No Packing No Pathology yes (Right forehead osteoma) Complications No immediate complications Condition stable Disposition PACU
--- NOTE | 2021-07-17 10:09 | WPDANESEPPF ---
Anes - Initial Pre Proc Eval Procedure: Operation Date: 07/17/21 11:30 Proposed Procedures p Excision Osteoma Right Forehead - Walter Varner MD Date/Time: 07/17/21 10:09 Surgeon: Walter Varner MD Pre Op Diagnosis: osteoma right forehead Patient Data Age: 50 Gender: F Height: 1.59 m Weight: 85 kg Allergies Allergy/AdvReac Type Severity Reaction Status Date / Time amoxicillin Allergy Unknown Hives Verified 07/15/21 14:36 codeine Allergy Unknown PASSED OUT Verified 07/15/21 14:36 Penicillins Allergy Unknown Hives Verified 07/15/21 14:36 Home Medications Medication Instructions Recorded Confirmed Type gabapentin 300 mg capsule 300 mg PO TID 06/22/19 07/15/21 History inhalational spacing device #1 each 07/19/19 07/08/21 Rx bupropion HCl 150 mg 24 hr tablet, 150 mg PO QAM #1 tablet 11/02/19 07/15/21 Rx extended release lubiprostone 24 mcg capsule 24 mcg PO BID 12/12/20 07/15/21 History meloxicam 7.5 mg tablet 15 mg PO QAM tablet 01/15/21 07/15/21 History prazosin 1 mg capsule 1 mg PO HS cap 01/15/21 07/15/21 History quetiapine 200 mg tablet 200 mg PO QHS tablet 01/15/21 07/15/21 History albuterol sulfate [Proventil HFA] 2 puff INHALATION Q4H PRN #6.7 g 02/24/21 07/15/21 Rx albuterol sulfate 2.5 mg INHALATION Q4-6H PRN #90 ml 03/04/21 07/15/21 Rx potassium chloride 20 mEq 20 meq PO DAILY 03/04/21 07/15/21 History tablet,extended release atorvastatin 10 mg tablet 10 mg PO DAILY #90 tablet 04/21/21 07/15/21 Rx furosemide 20 mg tablet 20 mg PO QAM #90 tablet 04/25/21 07/15/21 Rx cetirizine 10 mg tablet 10 mg PO DAILY #90 tablet 06/06/21 07/15/21 Rx sumatriptan succinate 50 mg tablet 50 mg PO ONCE PRN #9 tablet 06/30/21 07/15/21 Rx ondansetron HCl 4 mg tablet 4 mg PO Q6H PRN #30 tablet 07/09/21 07/15/21 Rx baclofen 20 mg PO TID 07/15/21 07/15/21 History escitalopram oxalate 20 mg PO QAM 07/15/21 07/15/21 History mulxolovgel-natktczzv-xbsowzuk 1 inh INHALATION HS 07/15/21 07/15/21 History [Trelegy Ellipta] omeprazole 20 mg PO HS 07/15/21 07/15/21 History oxycodone myristate [Xtampza ER] 13.5 mg PO BID 07/15/21 07/15/21 History spironolactone 25 mg PO QAM 07/15/21 07/15/21 History trazodone 100 mg PO QHS PRN 07/15/21 07/15/21 History Patient hx anesthesia problems: none Family hx anesthesia problems: none Results Review: All pre-operative results and documents have been reviewed as part of the pre-operative evaluation. [facility] Past Medical History Medical History BMI 31.0-31.9,adult BMI 32.0-32.9,adult BMI 33.0-33.9,adult BMI 34.0-34.9,adult COPD mixed type Migraines Osteoarthritis of left hip PTSD (post-traumatic stress disorder) Surgical History Surgical History History of knee surgery R - 2009 L - 2008 History of oral surgery 2013 History of spinal surgery 2012, 2014 Family History Family History Mother Hypertension Heart disease Grandparent Family history of lung cancer Father Family history of malignant neoplasm of thyroid Heart disease Family history of lung cancer Acute myocardial infarction Sibling No problems noted. Other Family history of arthritis Family history of cardiovascular disease Family history of malignant neoplasm of breast Unknown family medical history Social History Social History Social History: patient is a former smoker and quit 23 years ago after about 10 years of smoking. She does not do marijuana, drugs or alcohol. She is on disability due to her back pain. She would like her son, Armando, to be her surrogate decision maker if needed. She would like to be a full code. Smoking packs per day: 1 Smoking cigarettes per day: 20.0 Years smoked: 13 Smoking pack-years: 13.00 Harshal
[2021-07-17] MEDS: LACTATED RINGERS 1,000 ML 30 ML IV CONT (10:10)
[2021-07-17] MEDS: ceFAZolin 2 GM/D5W 50 ML 2 GM/50 ML BAG IVPB (10:25)
[2021-07-17] MEDS: BUPIVACAINE HCL 0.25% PF 30 ML VIAL INFILTRATE (10:52)
[2021-07-17] MEDS: LIDO 1%/EPINEPHRINE 1:100,000 50 ML VIAL INFILTRATE (10:52)
[2021-07-17] MEDS: fentaNYL CITRATE INJ (*CRX) 100 MCG/2 ML VIAL 25 MCG IV PUSH (11:57)
[2021-07-17] MEDS: oxyCODONE HCL (*CRX) 5 MG TAB IR PO (12:37)
== END 2021-07-17 13:20 | disposition home or self-care (01) ==
PROVIDERS: PCP Family Medicine; Visit Provider Surgery Plastic and Reconstructive Surgery
PROC: (CPT 11044; principal; 2021-07-17 11:30)
DX: D16.4 Benign neoplasm of bones of skull and face (principal); J44.9 Chronic obstructive pulmonary disease, unspecified; F43.10 Post-traumatic stress disorder, unspecified; Z79.51 Long term (current) use of inhaled steroids; Z87.891 Personal history of nicotine dependence; E66.9 Obesity, unspecified; Z68.33 Body mass index [BMI] 33.0-33.9, adult
CPT/HCPCS: 11044; 88305; 88311; A9270; J0690; J1100; J2250; J2405; J2704; J3010; J7120

== ENCOUNTER → 2021-08-19 08:34 | Outpatient (REF) | payer MEDICARE, MEDICAID, SELFPAY | LOC: ANHLAB 08:34 | PROVIDERS: PCP Family Medicine; Visit Provider Nurse Practitioner | DX: L91.8 Other hypertrophic disorders of the skin (principal) | CPT/HCPCS: 88304; 88305 ==

== ENCOUNTER 2021-11-03 15:03 | Outpatient (CLI) | payer MEDICARE, MEDICAID, SELFPAY ==
[2021-11-03 15:55] LABS: Anion Gap 6 mmol/L (8-16); Blood Urea Nitrogen 18 mg/dL (7-17); Calcium 9.3 mg/dL (8.4-10.2); Carbon Dioxide 29 mmol/L (22-30); Chloride 104 mmol/L (98-107); Estimated Glomerular Filt Rate > 60; Glucose 89 mg/dL (65-110); Magnesium 1.8 mg/dL (1.6-2.3); Potassium 3.9 mmol/L (3.4-5.0); Sodium 139 mmol/L (137-145)
== END 2021-11-03 15:04 | disposition home or self-care (01) ==
PROVIDERS: PCP Family Medicine; Visit Provider Nurse Practitioner Family
DX: R25.2 Cramp and spasm (principal)
CPT/HCPCS: 36415; 80048; 83735

== ENCOUNTER → 2021-12-09 15:47 | Outpatient (REF) | payer MEDICARE, MEDICAID, SELFPAY | LOC: ANHLAB 15:47 | PROVIDERS: PCP Family Medicine; Visit Provider Nurse Practitioner | DX: C44.41 Basal cell carcinoma of skin of scalp and neck (principal) | CPT/HCPCS: 88305 ==

== ENCOUNTER 2021-12-16 12:22 | Outpatient (CLI) | payer MEDICARE, MEDICAID, SELFPAY ==
--- NOTE | ~2021-12-16 | XR_ITS ---
EXAM: XR foot LT 2V HISTORY: NO INJURY 2ND TOE PAIN . COMPARISON: 10/11/2018. FINDINGS: Decreased mineralization. No fracture or dislocation. No lytic or blastic lesion. Joint sp aces are maintained. Os navicularis. Plantar enthesopathy. No erosion or periosteal change. Phlebolit hs, otherwise the soft tissues are tissues within normal limits. IMPRESSION: No acute osseous finding in the left foot. Reviewed, dictated and finalized at location K.
--- NOTE | ~2021-12-16 | XR_ITS ---
EXAMINATION: XR chest 2V DATE: 12/16/2021 12:57 INDICATION: Cough and dyspnea on exertion TECHNIQUE: PA and lateral views of the chest were obtained. COMPARISON: Chest radiograph dated 02/21/2021 FINDINGS: The lungs are now clear with no focal airspace opacities, pulmonary edema, pleural effusion or pneumo thorax. The cardiomediastinal silhouette is normal. Postoperative change of prior thoracic posterior spinal fusion with bilateral vertical derek and pedicle screw fixation. Cerclage wire projects over the posterior spine at the cervicothoracic junction. IMPRESSION: 1. No acute cardiopulmonary disease. Reviewed, dictated and finalized at location A.
== END 2021-12-16 12:23 | disposition home or self-care (01) ==
PROVIDERS: PCP Family Medicine; Visit Provider Nurse Practitioner Family
DX: M79.673 Pain in unspecified foot (principal); R05.8 Other specified cough
CPT/HCPCS: 71046; 73620

== ENCOUNTER → 2022-02-16 10:05 | Outpatient (REF) | payer MEDICARE, MEDICAID, SELFPAY | LOC: ANHLAB 10:05 | PROVIDERS: PCP Family Medicine; Visit Provider Nurse Practitioner | DX: C44.41 Basal cell carcinoma of skin of scalp and neck (principal) | CPT/HCPCS: 88305; 88331 ==

== ENCOUNTER 2022-08-27 10:22 | Outpatient (CLI) | payer MEDICARE, MEDICAID, SELFPAY ==
[2022-08-27 10:50] LABS: Alanine Aminotransferase 22 U/L (6-35); Albumin Level 4.2 g/dL (3.5-5.1); Alkaline Phosphatase 108 U/L (38-126); Anion Gap 4 mmol/L (8-16); Aspartate Amino Transferase 22 U/L (14-36); Bilirubin,Total 0.4 mg/dL (0.2-1.3); Blood Urea Nitrogen 19 mg/dL (7-17); Calcium 8.9 mg/dL (8.4-10.2); Carbon Dioxide 29 mmol/L (22-30); Chloride 102 mmol/L (98-107); Cholesterol 221 mg/dL (0-200); Estimated Glomerular Filt Rate > 60; Glucose 140 mg/dL (65-110); HDL Direct 61 mg/dL; Potassium 4.3 mmol/L (3.4-5.0); Sodium 135 mmol/L (137-145); Triglycerides 117 mg/dL (<150)
[2022-08-27 11:01] LABS: LDL Cholesterol Direct 112 mg/dL
== END 2022-08-27 10:23 | disposition home or self-care (01) ==
LOC: ANHLAB 10:24
PROVIDERS: PCP Family Medicine; Visit Provider Nurse Practitioner Family
DX: E87.6 Hypokalemia (principal); R73.09 Other abnormal glucose; R25.2 Cramp and spasm; E78.5 Hyperlipidemia, unspecified; Z79.899 Other long term (current) drug therapy
CPT/HCPCS: 36415; 80053; 80061; 83735

== ENCOUNTER 2022-09-01 13:33 | Outpatient (CLI) | payer MEDICARE, MEDICAID, SELFPAY ==
--- NOTE | ~2022-09-01 | XR_ITS ---
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 RESULT: Lines, tubes, and devices: Cervicothoracic cerclage wire. Extensive cervicothoracic posterior fusion , hardware intact as visualized. Lungs and pleura: Low lung volumes with crowding. No focal consolidation, pneumothorax, or pleural e ffusion. Cardiomediastinal silhouette: Stable. Other: No acute osseous or upper abdominal finding. IMPRESSION: No acute cardiopulmonary process. Reviewed, dictated and finalized at location K. RVISOR BROADLOOM
== END 2022-09-01 13:34 | disposition home or self-care (01) ==
PROVIDERS: PCP Family Medicine; Visit Provider Nurse Practitioner Family
DX: R05.9 Cough, unspecified (principal); R06.02 Shortness of breath
CPT/HCPCS: 71046

== ENCOUNTER 2022-09-10 12:19 | Outpatient (CLI) | payer MEDICARE, MEDICAID, SELFPAY ==
[2022-09-10 12:46] LABS: Hemoglobin A1C 5.9 % (<5.7)
[2022-09-10 12:49] LABS: Anion Gap 3 mmol/L (8-16); Blood Urea Nitrogen 17 mg/dL (7-17); Calcium 9.6 mg/dL (8.4-10.2); Carbon Dioxide 31 mmol/L (22-30); Chloride 103 mmol/L (98-107); Cholesterol 261 mg/dL (0-200); Estimated Glomerular Filt Rate > 60; Glucose 91 mg/dL (65-110); HDL Direct 64 mg/dL; Potassium 4.4 mmol/L (3.4-5.0); Sodium 137 mmol/L (137-145); Triglycerides 125 mg/dL (<150)
[2022-09-10 12:59] LABS: LDL Cholesterol Direct 139 mg/dL
== END 2022-09-10 12:20 | disposition home or self-care (01) ==
LOC: ANHLAB 12:21
PROVIDERS: PCP Family Medicine; Visit Provider Family Medicine
DX: E78.5 Hyperlipidemia, unspecified (principal); Z13.220 Encounter for screening for lipoid disorders; R73.09 Other abnormal glucose
CPT/HCPCS: 36415; 80048; 80061; 83036

== ENCOUNTER 2022-10-14 18:46 | Emergency (ER) | payer MEDICARE, MEDICAID, SELFPAY ==
[2022-10-14] VITALS (13 sets, daily range): BP systolic 110–119; BP diastolic 57–93; PULSE 95–116; RESP 16; TEMP 36.8; O2SAT 92–97
--- NOTE | ~2022-10-14 | XR_ITS ---
EXAMINATION: XR chest 2V Exam Date/Time: 10/14/2022 19:53 CDT HISTORY: SOB, COVID+ Comparison: 09/01/2022, 12/16/2021. RESULT: Lines, tubes, and devices: Intact posterior fusion hardware and cerclage wires. Lungs and pleura: Slightly increased diffuse reticular opacities with persistent low lung volumes an d left hemidiaphragm elevation. Cardiomediastinal silhouette: Stable. Other: No acute osseous or upper abdominal finding. IMPRESSION: Pulmonary opacities may represent bronchiolitis, as can be seen with atypical infection, asthma, aspi ration, and small airways disease. Reviewed, dictated and finalized at location K. IMPRESSION: Pulmonary opacities may represent bronchiolitis, as can be seen with atypical i nfection, asthma, aspiration, and small airways disease.
--- NOTE | 2022-10-14 19:00 | ECG_ITS ---
Measurements Intervals [place] Rate: 98 P: 8 AK: 100 QRS: 19 QRSD: 95 T: 45 QT: 284 QTc: 363 Interpretive Statements SINUS RHYTHM WITH SHORT AK INTERVAL EARLY PRECORDIAL R/S TRANSITION BASELINE ARTIFACT- II, III, AVR, AVL, AVF, V4 BORDERLINE ECG COMPARED TO ECG 02/07/2021 21:39:51 NO SIGNIFICANT CHANGES Electronically Signed On 10-14-2022 20:31:28 CDT by Prem Fairchild D.O.
[2022-10-14 19:40] LABS: Basophils Percent Auto 0.2 % (0.2-1.2); Eosinophils Absolute Auto 0.1 K/mm3 (0-0.3); Eosinophils Percent Auto 0.6 % (0-4.4); Hematocrit 46.6 % (37.0-47.0); Hemoglobin 15.6 g/dL (12.0-15.0); Immature Granulocyte Absolute 0.08 K/mm3 (0.00-0.031); Immature Granulocyte Percent A 0.6 % (0-0.5); Lymphocytes Absolute Auto 1.52 K/mm3 (0.9-3.2); Mean Corpuscular HGB Conc 33.5 g/dl (32-36); Mean Corpuscular Hemoglobin 32.2 pg (26-34); Mean Corpuscular Volume 96.3 fl (80-100); Mean Platelet Volume 8.6 fl (7.4-10.4); Monocytes Absolute Auto 1.1 K/mm3 (0.1-0.6); Monocytes Percent Auto 8.3 % (2.6-8.5); Neutrophils Absolute Auto 9.9 K/mm3 (1.3-6.7); Neutrophils Percent Auto 78.3 % (45.5-73.1); Platelet Count Result 218 k/mm3 (150-375); Red Blood Count 4.84 M/mm3 (4.2-5.4); Red Cell Distribution Width 13.1 % (11.5-14.5); White Blood Count 12.7 K/mm3 (4.5-10.0)
[2022-10-14 19:49] LABS: Alanine Aminotransferase 20 U/L (6-35); Albumin Level 4.6 g/dL (3.5-5.1); Alkaline Phosphatase 93 U/L (38-126); Anion Gap 9 mmol/L (8-16); Aspartate Amino Transferase 19 U/L (14-36); Bilirubin,Total 0.8 mg/dL (0.2-1.3); Blood Urea Nitrogen 11 mg/dL (7-17); Calcium 9.2 mg/dL (8.4-10.2); Carbon Dioxide 19 mmol/L (22-30); Chloride 106 mmol/L (98-107); Estimated CRCL calculation 83 ml/min; Estimated Glomerular Filt Rate > 60; Glucose 143 mg/dL (65-110); Potassium 3.2 mmol/L (3.4-5.0); Sodium 134 mmol/L (137-145)
[2022-10-14] MEDS: ACETAMINOPHEN 500 MG TABLET 1000 MG PO (20:19)
[2022-10-14] MEDS: IBUPROFEN 400 MG TABLET 800 MG PO (20:20)
[2022-10-14] MEDS: SODIUM CHLORIDE 0.9% IV 2,000 ML 999 ML IV CONT (20:21)
--- NOTE | 2022-10-14 20:41 | ED.GENADULT ---
HPI - General Adult General Chief complaint: Shortness of Breath/Dyspnea Stated complaint: + COVID today. PCP sent here, SOB Time Seen by Provider: 10/14/22 19:47 History of Present Illness HPI narrative: A 51-year-old female presenting ED with chief complaint of positive COVID test. Patient says she woke up today feeling unwell. Throughout the day she has had shortness of breath, 3 episodes of diarrhea. She denies fever, chills, nausea vomiting, chest pain or cough. Patient has been monitored pulse ox at home and has been 95% on room air. Patient is vaccinated against COVID. She did have a previous COVID infection that resulted in a prolonged hospital stay. patient has been taking breathing treatments at home throughout the day. Patient also has a area of ulceration/skin infection on her back left shoulder blade that she was going to see her primary care physician about tomorrow. Due to the COVID-19 test she will be unable to go into the clinic and she has asked me to look at it. There is a 1 x 1 cm ulceration with granulation tissue with mild surrounding erythema. Patient has a history of MRSA and says that her wounds typically heal quite slowly. Related Data Home Medications Medication Instructions Recorded Confirmed gabapentin 300 mg capsule 300 mg PO TID 06/22/19 10/08/22 lubiprostone 24 mcg capsule 24 mcg PO BID 12/12/20 10/08/22 (Amitiza) prazosin 1 mg capsule 1 mg PO HS 01/15/21 10/08/22 baclofen 20 mg tablet 20 mg PO TID 07/15/21 10/08/22 oxycodone myristate 13.5 mg 13.5 mg PO BID 07/15/21 10/08/22 capsule sprinkle extend release 12hr(DON'T CRUSH) (Xtampza ER) Allergies Allergy/AdvReac Type Severity Reaction Status Date / Time amoxicillin Allergy Unknown Hives Verified 10/14/22 18:47 codeine Allergy Unknown PASSED OUT Verified 10/14/22 18:47 Penicillins Allergy Unknown Hives Verified 10/14/22 18:47 lidocaine AdvReac Other Verified 10/14/22 18:59 [facility] Past Medical History Medical History Anterior tibial tendon tear, traumatic Basal cell carcinoma (BCC) of crown BMI 31.0-31.9,adult BMI 33.0-33.9,adult BMI 34.0-34.9,adult Constipation due to opioid therapy COPD mixed type Migraines Osteoarthritis of left hip Osteoma of face Pneumonia due to COVID-19 virus PTSD (post-traumatic stress disorder) Surgical History Surgical History History of knee surgery R - 2009 L - 2007 History of oral surgery 2013 History of spinal surgery 2012, 2014 Family History Family History Mother Hypertension Heart disease Grandparent Family history of lung cancer Father Family history of malignant neoplasm of thyroid Heart disease Family history of lung cancer Acute myocardial infarction Sibling No problems noted. Other Family history of arthritis Family history of cardiovascular disease Family history of malignant neoplasm of breast Unknown family medical history Social History Social History Social History: patient is a former smoker and quit 23 years ago after about 10 years of smoking. She does not do marijuana, drugs or alcohol. She is on disability due to her back pain. She would like her son, Armando, to be her surrogate decision maker if needed. She would like to be a full code. Smoking packs per day: 1 Smoking cigarettes per day: 20.0 Years smoked: 13 Smoking pack-years: 13.00 Smoking status: Former smoker Tobacco type: cigarettes Second hand tobacco smoke exposure: No Smoking end date: 01/30/98 Alcohol intake: former Substance use: current Substance use type: marijuana Lack of Transportation: No Lack of Food: Never True Current Housing: I Have Housing Concerned About Future Housing: No Difficulty Paying Gas/Electr
[2022-10-14] MEDS: POTASSIUM CHLORIDE 20 MEQ TABLET 40 MEQ PO (21:01)
[2022-10-14] MEDS: guaiFENesin/DEXTROMETHORPHAN 10 ML UDC PO (22:20)
== END 2022-10-14 22:30 | disposition home or self-care (01) ==
PROVIDERS: Emergency Medicine; Emergency Provider Emergency Medicine; PCP Family Medicine
DX: U07.1 COVID-19 (principal); E87.6 Hypokalemia; L08.9 Local infection of the skin and subcutaneous tissue, unspecified; B96.89 Other specified bacterial agents as the cause of diseases classified elsewhere; J44.9 Chronic obstructive pulmonary disease, unspecified; M16.12 Unilateral primary osteoarthritis, left hip; Z85.828 Personal history of other malignant neoplasm of skin; Z86.16 Personal history of COVID-19; Z87.01 Personal history of pneumonia (recurrent); Z86.14 Personal history of Methicillin resistant Staphylococcus aureus infection; Z87.891 Personal history of nicotine dependence; R94.31 Abnormal electrocardiogram [ECG] [EKG]
CPT/HCPCS: 36415; 71046; 80053; 85025; 93005; 96360; 96361; 99284; A9270; J7030

== ENCOUNTER 2023-06-26 12:12 | Emergency (ER) | payer MEDICARE, MEDICAID, SELFPAY ==
[2023-06-26 12:22] VITALS: BP 125/82; PULSE 88; RESP 18; TEMP 36.7; O2SAT 98
--- NOTE | 2023-06-26 12:52 | ED.FEMALEGU ---
HPI - Female Genitourinary General Chief complaint: Urogenital-Female Stated complaint: Female Urogenital Time Seen by Provider: 06/26/23 12:14 Source: patient Mode of arrival: ambulatory Limitations: no limitations History of Present Illness HPI Narrative: 52-year-old female [facility] complains of urinary frequency, urgency, and burning since yesterday. Patient reports that her last urinary tract infection was approximately 5-6 years ago. Patient reports that she had a kidney stone 22 years ago her symptoms feel different. Patient denies back pain, abdominal pain, fever, body aches, chills, nausea vomiting or diarrhea. Patient denies vaginal discharge or concern for STDs. MD elicited complaint: dysuria and UTI Onset (ago): day(s) (1) Vaginal discharge: none Vaginal bleeding: none Urinary symptoms: Dysuria, Urgency and Frequency Exacerbating factors: none Relieving factors: none Associated symptoms: denies other symptoms Sexual activity: No Patient : No Related Data Home Medications Medication Instructions Recorded Confirmed gabapentin 300 mg capsule 300 mg PO TID 06/22/19 05/13/23 lubiprostone 24 mcg capsule 24 mcg PO BID 12/12/20 05/13/23 (Amitiza) prazosin 1 mg capsule 1 mg PO HS 01/15/21 05/13/23 baclofen 20 mg tablet 20 mg PO TID 07/15/21 05/13/23 oxycodone myristate 13.5 mg 13.5 mg PO BID 07/15/21 05/13/23 capsule sprinkle extend release 12hr(DON'T CRUSH) (Xtampza ER) bupropion HCl 150 mg 24 hr tablet, 150 mg PO QAM 03/09/23 05/13/23 extended release Allergies Allergy/AdvReac Type Severity Reaction Status Date / Time amoxicillin Allergy Unknown Hives Verified 06/26/23 12:30 codeine Allergy Unknown PASSED OUT Verified 06/26/23 12:30 Penicillins Allergy Unknown Hives Verified 06/26/23 12:30 lidocaine AdvReac Other Verified 06/26/23 12:30 Review of Systems Constitutional: Constitutional: Denies chills and Denies fatigue ENT: Denies vertigo, Denies dizziness and Denies nasal congestion Cardiovascular: Cardiovascular: Denies chest pain Respiratory: Respiratory: Denies cough, Denies dyspnea and Denies wheezing Gastrointestinal: Gastrointestinal: Denies abdominal pain, Denies diarrhea, Denies nausea and Denies vomiting Genitourinary: Genitourinary: Denies abnormal vaginal bleeding, Denies hematuria, Reports nocturia, Denies genital lesions, Reports dysuria, Denies pelvic pain, Denies flank pain, Denies urinary incontinence and Denies vaginal discharge Musculoskeletal: Musculoskeletal: Denies arthralgias and Denies joint swelling Integumentary/Breasts: Skin/Breast: Denies rash PMFSH Past Medical History Medical History Anterior tibial tendon tear, traumatic Basal cell carcinoma (BCC) of crown BMI 31.0-31.9,adult BMI 33.0-33.9,adult BMI 34.0-34.9,adult Constipation due to opioid therapy COPD mixed type Migraines Osteoarthritis of left hip Osteoma of face Pneumonia due to COVID-19 virus PTSD (post-traumatic stress disorder) Surgical History Surgical History History of knee surgery R - 2009 L - 2007 History of oral surgery 2013 History of spinal surgery 2012, 2014 Family History Family History Mother Hypertension Heart disease Grandparent Family history of lung cancer Father Family history of malignant neoplasm of thyroid Heart disease Family history of lung cancer Acute myocardial infarction Sibling No problems noted. Other Family history of arthritis Family history of cardiovascular disease Family history of malignant neoplasm of breast Unknown family medical history Social History Social History Social History: patient is a former smoker and quit 23 years ago after about 10 years of smoking. She does not do lavon
== END 2023-06-26 13:02 | disposition home or self-care (01) ==
PROVIDERS: Emergency Provider Nurse Practitioner Family; PCP Family Medicine
DX: N30.00 Acute cystitis without hematuria (principal); Z87.891 Personal history of nicotine dependence; J44.9 Chronic obstructive pulmonary disease, unspecified; M16.12 Unilateral primary osteoarthritis, left hip; Z86.16 Personal history of COVID-19; Z85.828 Personal history of other malignant neoplasm of skin
CPT/HCPCS: 81003; 87077; 87086; 87088; 99213; G0463

== ENCOUNTER 2023-10-18 11:57 | Outpatient (CLI) | payer MEDICARE, MEDICAID, SELFPAY ==
[2023-10-18 13:54] LABS: Hematocrit 46.1 % (37.0-47.0); Hemoglobin 15.2 g/dL (12.0-15.0); Mean Corpuscular Hemoglobin 31.9 pg (26-34); Mean Corpuscular Volume 96.8 fl (80-100); Platelet Count Result 215 k/mm3 (150-375); Red Blood Count 4.76 M/mm3 (4.2-5.4); Red Cell Distribution Width 12.9 % (11.5-14.5); White Blood Count 7.8 K/mm3 (4.5-10.0)
[2023-10-18 14:12] LABS: Alanine Aminotransferase 18 U/L (6-35); Albumin Level 4.4 g/dL (3.5-5.1); Alkaline Phosphatase 97 U/L (38-126); Anion Gap 6 mmol/L (8-16); Aspartate Amino Transferase 22 U/L (14-36); Bilirubin,Total 0.7 mg/dL (0.2-1.3); Blood Urea Nitrogen 7 mg/dL (7-17); Calcium 9.8 mg/dL (8.4-10.2); Carbon Dioxide 28 mmol/L (22-30); Chloride 106 mmol/L (98-107); Cholesterol 171 mg/dL (0-200); Estimated Glomerular Filt Rate > 60; Glucose 90 mg/dL (65-110); HDL Direct 51 mg/dL; Potassium 3.7 mmol/L (3.4-5.0); Sodium 140 mmol/L (137-145); Triglycerides 104 mg/dL (<150)
[2023-10-18 14:22] LABS: LDL Cholesterol Direct 105 mg/dL
[2023-10-18 14:43] LABS: Thyroid Stimulating Hormone 0.547 uIU/mL (0.465-4.680)
[2023-10-18 15:00] LABS: Vitamin D 25 Hydroxy 66.5 ng/mL
== END 2023-10-18 11:58 | disposition home or self-care (01) ==
LOC: ANHLAB 12:02
PROVIDERS: PCP Family Medicine; Visit Provider Nurse Practitioner Family
DX: E78.5 Hyperlipidemia, unspecified (principal); E55.9 Vitamin D deficiency, unspecified; R25.2 Cramp and spasm; Z13.29 Encounter for screening for other suspected endocrine disorder
CPT/HCPCS: 36415; 80053; 80061; 82306; 83735; 84443; 85027

== ENCOUNTER 2023-11-27 16:09 | Emergency (ER) | payer MEDICARE, MEDICAID, SELFPAY ==
--- NOTE | ~2023-11-27 | XR_ITS ---
EXAM: XR finger 1st RT min 2V DATE: 11/27/2023 17:19 HISTORY: pain, swelling, no trauma . COMPARISON: None available. FINDINGS: Decreased mineralization. No fracture or dislocation. No lytic or blastic lesion. Polyarti cular osteoarthritis, moderate at the first CMC joint. No erosion or periosteal change. Soft tissues within normal limits. IMPRESSION: No acute osseous finding in the right first digit. Reviewed, dictated and finalized at location K.
[2023-11-27 16:23] VITALS: BP 116/77; PULSE 84; RESP 16; TEMP 36.3; O2SAT 95
--- NOTE | 2023-11-27 18:18 | PC.NURSE ---
Pt not in room. Pt eloped.
== END 2023-11-27 18:19 | disposition left against medical advice (07) ==
PROVIDERS: Emergency Provider Physician Assistant; PCP Family Medicine
DX: M79.644 Pain in right finger(s) (principal)
CPT/HCPCS: 73140; 99199

== ENCOUNTER 2023-12-07 00:09 | Emergency (ER) | payer MEDICARE, MEDICAID, SELFPAY ==
--- NOTE | ~2023-12-07 | CT_ITS ---
Non-contrast CT scan of the Abdomen and Pelvis Clinical indication: Right flank pain Technique: 2.5 mm axial scans were obtained through the abdomen and pelvis without intravenous or or al contrast. Dose reduction technique was used on this scan by utilizing automated exposure control a nd iterative reconstruction technique. The dose-length product (DLP) was 1179.41 mGy-cm. Findings: Images through the lung bases reveal no abnormalities. There is a 4 mm stone at the right UVJ, with mild right hydroureteronephrosis. No other renal or uret eral stones are seen. No left hydronephrosis. The liver, spleen, pancreas, and adrenals appear normal. Small calcified gallstones are present. Ther e is no aortic aneurysm. There is no evidence of bowel obstruction. Images through the pelvis were performed. There is no evidence of ascites or lymphadenopathy. Urinary bladder otherwise unremarkable. No adnexal mass seen. No ascites. Impression: 4 mm right UVJ stone, with mild right hydroureteronephrosis. Cholelithiasis. Reviewed, dictated and finalized at location . Impression: 4 mm right UVJ stone, with mild right hydroureteronephrosis. Cholelithiasis.
[2023-12-07 00:10] VITALS: BP 169/101; PULSE 89; RESP 20; TEMP 36.4; O2SAT 96
[2023-12-07 00:26] LABS: Basophils Percent Auto 0.4 % (0.2-1.2); Eosinophils Absolute Auto 0.4 K/mm3 (0-0.3); Eosinophils Percent Auto 3.9 % (0-4.4); Hematocrit 45.4 % (37.0-47.0); Hemoglobin 15.6 g/dL (12.0-15.0); Immature Granulocyte Absolute 0.04 K/mm3 (0.00-0.031); Immature Granulocyte Percent A 0.4 % (0-0.5); Lymphocytes Absolute Auto 2.48 K/mm3 (0.9-3.2); Lymphocytes Percent Auto 23.3 % (18.3-44.2); Mean Corpuscular HGB Conc 34.4 g/dl (32-36); Mean Corpuscular Volume 93.2 fl (80-100); Mean Platelet Volume 8.6 fl (7.4-10.4); Monocytes Absolute Auto 0.8 K/mm3 (0.1-0.6); Neutrophils Absolute Auto 6.9 K/mm3 (1.3-6.7); Platelet Count Result 223 k/mm3 (150-375); Red Blood Count 4.87 M/mm3 (4.2-5.4); Red Cell Distribution Width 12.8 % (11.5-14.5); White Blood Count 10.6 K/mm3 (4.5-10.0)
[2023-12-07 00:46] LABS: Alanine Aminotransferase 15 U/L (6-35); Albumin Level 4.7 g/dL (3.5-5.1); Alkaline Phosphatase 88 U/L (38-126); Anion Gap 10 mmol/L (4-12); Aspartate Amino Transferase 26 U/L (14-36); Bilirubin,Total 0.9 mg/dL (0.2-1.3); Blood Urea Nitrogen 11 mg/dL (7-17); Calcium 10.1 mg/dL (8.4-10.2); Carbon Dioxide 24 mmol/L (22-30); Chloride 107 mmol/L (98-107); Estimated CRCL calculation 71 ml/min; Estimated Glomerular Filt Rate > 60; Glucose 128 mg/dL (65-110); Lipase 93 U/L (23-300); Potassium 3.6 mmol/L (3.4-5.0); Sodium 141 mmol/L (137-145)
[2023-12-07] MEDS: HYDROmorphone HCL INJ (*CRX) 1 MG/ML SYR IV PUSH ×2 (00:50→01:26)
[2023-12-07] MEDS: ONDANSETRON INJ 4 MG/2 ML VIAL IV PUSH (00:51)
[2023-12-07] MEDS: SODIUM CHLORIDE 0.9% IV 1,000 ML 999 ML IV CONT (00:51)
--- NOTE | 2023-12-07 01:03 | ED.ABDPAIN ---
HPI - Abdominal Pain General Chief Complaint: Abdominal Pain Stated Complaint: abd pain Time Seen by Provider: 12/07/23 00:15 Source: patient Mode of arrival: EMS Limitations: no limitations History of Present Illness HPI narrative: Patient is a 53 y/o female who presents to the ED via EMS with report of R sided abdominal pain. Patient reports she suddenly developed pain in her right flank region, right lower back, right lower abdomen approximately 15 minutes prior to calling EMS. Pain is severe and constant. She is unable to find a comfortable position. Reports nausea, denies vomiting. Denies diarrhea or constipation. Reports feeling the urge to urinate, but states she is unable to. Denies hematuria. She does have history of kidney stones, but states this does not feel similar. States her appendix is in her right lower back. Related Data Home Medications Medication Instructions Recorded Confirmed gabapentin 300 mg capsule 300 mg PO TID 06/22/19 10/22/23 prazosin 1 mg capsule 1 mg PO HS 01/15/21 10/22/23 baclofen 20 mg tablet 20 mg PO TID 07/15/21 10/22/23 oxycodone myristate 13.5 mg 13.5 mg PO BID 07/15/21 10/22/23 capsule sprinkle extend release 12hr(DON'T CRUSH) (Xtampza ER) bupropion HCl 150 mg 24 hr tablet, 100 mg PO QAM 10/13/23 10/22/23 extended release Allergies Allergy/AdvReac Type Severity Reaction Status Date / Time amoxicillin Allergy Unknown Hives Verified 12/07/23 00:15 codeine Allergy Unknown PASSED OUT Verified 12/07/23 00:15 Penicillins Allergy Unknown Hives Verified 12/07/23 00:15 lidocaine AdvReac Other Verified 12/07/23 00:15 Review of Systems Review of Systems: CONSTITUTIONAL: Denies fever, chills, or sweats. CARDIOVASCULAR: Denies chest pain. RESPIRATORY: Denies dyspnea. GASTROINTESTINAL: See HPI. GENITOURINARY: See HPI. MUSCULOSKELETAL: See HPI. All systems reviewed & are unremarkable except as noted in HPI and below PMFSH Past Medical History Medical History Anterior tibial tendon tear, traumatic Basal cell carcinoma (BCC) of crown BMI 31.0-31.9,adult BMI 33.0-33.9,adult BMI 34.0-34.9,adult Cerumen impaction Constipation due to opioid therapy COPD mixed type Hemorrhoids Migraines Osteoarthritis of left hip Osteoma of face Pneumonia due to COVID-19 virus PTSD (post-traumatic stress disorder) Surgical History Surgical History History of knee surgery R - 2009 L - 2007 History of oral surgery 2012 History of spinal surgery 2012, 2014 Family History Family History Mother Hypertension Heart disease Grandparent Family history of lung cancer Father Family history of malignant neoplasm of thyroid Heart disease Family history of lung cancer Acute myocardial infarction Sibling No problems noted. Other Family history of arthritis Family history of cardiovascular disease Family history of malignant neoplasm of breast Unknown family medical history Social History Social History Social History: patient is a former smoker and quit 23 years ago after about 10 years of smoking. She does not do marijuana, drugs or alcohol. She is on disability due to her back pain. She would like her son, Armando, to be her surrogate decision maker if needed. She would like to be a full code. Smoking packs per day: 1 Smoking cigarettes per day: 20.0 Years smoked: 13 Smoking pack-years: 13.00 Smoking status: Former smoker Tobacco type: cigarettes Second hand tobacco smoke exposure: No Smoking end date: 01/30/98 Alcohol intake: current Substance use: current Substance use type: marijuana Do You Feel Safe in your Home?: Yes Lack of Transportation: No Lack of Food: Never T
[2023-12-07 01:27] VITALS: BP 157/102; PULSE 83; RESP 16; O2SAT 96
[2023-12-07 02:44] LABS: Appearance Urine Turbid (Clear); Bacteria Urine None Seen /hpf; Bilirubin Urine Negative (Negative); Blood Urine 3+ (Negative); Color Urine Yellow (Yellow); Glucose Urine UA Negative (Negative); Ketones Urine 1+ mg/dL (Negative); Leukocyte Esterase Ur 1+ LEU/UL (Negative); Nitrate Urine Negative (Negative); Non Pathogenic Casts 0-2; Protein Urine 1+ mg/dL (Negative); RBC Urine >100 /hpf (0-2); Specific Grav Ur 1.013 (1.001-1.035); Squamous Epithelial Cell Urine None Seen /hpf (Few); pH Urine 7.5 (5.0-9.0)
[2023-12-07 02:54] LABS: Add Urine Microscopic? YES
[2023-12-07] MEDS: KETOROLAC 30 MG/ML VIAL (*BKC) IV PUSH (03:26)
[2023-12-07] MEDS: TAMSULOSIN HCL 0.4 MG CAPSULE PO (03:26)
[2023-12-07 04:02] VITALS: BP 127/66; PULSE 81; RESP 14; O2SAT 97
== END 2023-12-07 04:03 | disposition home or self-care (01) ==
PROVIDERS: Emergency Provider Physician Assistant; PCP Family Medicine
DX: N13.2 Hydronephrosis with renal and ureteral calculous obstruction (principal); J44.9 Chronic obstructive pulmonary disease, unspecified; M16.12 Unilateral primary osteoarthritis, left hip; Z85.828 Personal history of other malignant neoplasm of skin; Z86.16 Personal history of COVID-19; Z87.01 Personal history of pneumonia (recurrent); Z87.891 Personal history of nicotine dependence; K80.20 Calculus of gallbladder without cholecystitis without obstruction
CPT/HCPCS: 36415; 74176; 80053; 81001; 83690; 85025; 87086; 87088; 96361; 96374; 96375; 96376; 99284; A9270; J1170; J1885; J2405; J7030

== ENCOUNTER 2024-03-22 12:08 | Outpatient (CLI) | payer MEDICARE, SELFPAY ==
--- NOTE | ~2024-03-22 | XR_ITS ---
EXAMINATION: XR chest 2V 03/22/2024 12:23 INDICATION: Shortness of breath PROCEDURE: 2 view chest COMPARISON: Comparison to multiple prior studies sequentially, with oldest reviewed study dated 02/21. FINDINGS: The lungs are clear. The cardiomediastinal silhouette is within normal limits. There are no pleural effusions. There is no pneumothorax suspected. There are Bolton rods overlying the th oracic spine. IMPRESSION: 1: NO ACUTE CARDIOPULMONARY DISEASE. Reviewed, dictated and finalized at location B.
== END 2024-03-22 12:09 | disposition home or self-care (01) ==
PROVIDERS: PCP Family Medicine; Visit Provider Nurse Practitioner Adult Health
DX: J40 Bronchitis, not specified as acute or chronic (principal)
CPT/HCPCS: 71046

== ENCOUNTER 2024-07-03 14:20 | Emergency (ER) | payer MEDICARE, MEDICAID, SELFPAY ==
--- NOTE | 2024-07-03 14:29 | ED.URI ---
HPI - URI/Sore Throat General Chief Complaint: Upper Respiratory Infection Stated Complaint: cough Time Seen by Provider: 07/03/24 14:29 Source: patient Mode of arrival: ambulatory Limitations: no limitations History of Present Illness HPI Narrative: Patient is a 53-year-old female who presents with 3 weeks of intermittent cough, sinus pressure and congestion. Patient states she has symptoms for several days, followed by 2 days of symptom relief and then repeat of symptoms. Patient has tried [id number] medication with no relief. Patient has history of pneumonia, COPD and scarring from COVID. Denies any fever, chills, nausea, vomiting, diarrhea. Related Data Home Medications Medication Instructions Recorded Confirmed prazosin 1 mg capsule 1 mg PO HS 01/15/21 07/03/24 bupropion HCl 150 mg 24 hr tablet, 100 mg PO QAM 10/13/23 07/03/24 extended release Allergies Allergy/AdvReac Type Severity Reaction Status Date / Time amoxicillin Allergy Unknown Hives Verified 04/05/24 11:01 codeine Allergy Unknown PASSED OUT Verified 07/03/24 15:11 Penicillins Allergy Unknown Hives Verified 07/03/24 15:11 lidocaine AdvReac Other Verified 07/03/24 15:11 Review of Systems Review of Systems: All systems reviewed & are unremarkable except as noted in HPI and below Constitutional: Constitutional: Denies body ache(s), Denies chills, Denies fatigue, Denies fever(s), Denies headache(s), Denies malaise and Denies weakness Eyes: Eyes: Denies blurry vision, Denies itchy eyes and Denies loss of vision ENT: Denies otalgia, Denies headache(s), Reports nasal congestion, Denies sinus pain and Denies sore throat Cardiovascular: Cardiovascular: Denies chest pain, Denies irregular heart rhythm and Denies dyspnea Respiratory: Respiratory: Reports cough and Denies dyspnea Gastrointestinal: Gastrointestinal: Denies abdominal pain, Denies diarrhea, Denies nausea and Denies vomiting Musculoskeletal: Musculoskeletal: Denies back pain, Denies myalgias and Denies arthralgias Integumentary/Breasts: Skin/Breast: Denies pruritus and Denies rash Neurologic: Denies headache(s), Denies loss of vision and Denies weakness Psychiatric: Psychiatric: Reports no additional psychiatric complaints Endocrine: Endocrine: Denies fatigue Allergic/Immunologic: Allergic/Immunologic: Denies itchy eyes PMFSH Past Medical History Medical History Anterior tibial tendon tear, traumatic Basal cell carcinoma (BCC) of crown Cerumen impaction Constipation due to opioid therapy COPD exacerbation COPD mixed type Hemorrhoids Migraines Nausea Osteoarthritis of left hip Osteoma of face Pneumonia due to COVID-19 virus PTSD (post-traumatic stress disorder) Surgical History Surgical History History of knee surgery R - 2009 L - 2008 History of oral surgery 2013 History of spinal surgery 2012, 2014 Family History Family History Mother Hypertension Heart disease Grandparent Family history of lung cancer Father Family history of malignant neoplasm of thyroid Heart disease Family history of lung cancer Acute myocardial infarction Sibling No problems noted. Other Family history of arthritis Family history of cardiovascular disease Family history of malignant neoplasm of breast Unknown family medical history Social History Social History Social History: patient is a former smoker and quit 23 years ago after about 10 years of smoking. She does not do marijuana, drugs or alcohol. She is on disability due to her back pain. She would like her son, Armando, to be her surrogate decision maker if needed. She would like to be a full code. Smoking packs per day: 1 Smoking cigarettes per day: 20.0 Years smoked: 13 Smoking pack-years: 13.00 Smoking status: Former smoker Tobacco type: cigarettes Second hand tobacco smoke exposure: No Smoking end date: 01/30/98 Alcohol intake: current Substance use: current Substance use type: marijuana Do You Feel Safe in your Home?: Yes Lack of Transportation: No Lack of Food: Never True Current Housing: I Have Housing Concerned About Future Housing: No Difficulty Paying Gas/Electric Bills: No Difficulty Paying for Meds: No Currently Unemployed: No Education: Associate Degree Difficulty w/ Childcare or Family Care: No Living arrangements: with family Additional living arrangements comments: boyfriend Occupation/Education: retired 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 Gender identity (if verbalized by the patient): Female Sexual Orientation (if Verbalized by the Patient): Straight or Heterosexual Spiritual care concerns: No Agree to blood products: Yes Comments At time of signature, agree with nursing past medical, surgical, social and family history. There is no relevant family history pertinent to the presenting complaint. Exam Const: General: cooperative, healthy appearing, comfortable, no acute distress and well nourished Nutritional Appearance: well nourished Orientation/consciousness: patient oriented x3 Limitations: no limitations HENMT: Head: normal to inspection, normocephalic and atraumatic Ears: hearing grossly normal bilaterally, external ears normal, TM's normal bilaterally, EAC's normal and no periauricular adenopathy Face/Nose/Sinus: Normal external nose present, Abnormal mucous membranes and turbinates present erythematous bilateral and diffuse, normal facial exam, sinuses nontender and face symmetric Face and sinus: normal facial exam, sinuses nontender and face symmetric Mouth: Yes Normal oral and palatal mucosa present, Yes lip normal, Yes tongue normal, Yes Normal salivary glands and ducts present, Yes oropharynx normal and Yes moist mucous membranes Teeth and gingiva: dentition normal Throat: posterior oropharynx normal, tonsils normal and uvula midline Eyes: General: appearance normal, both eyes and all related structures Alignment and Position: alignment normal and position normal Periorbital: periorbital findings normal Eyelids: eyelids normal Pupils: Equal, round and reactive pupils present Neck: Neck: normal visual inspection, full ROM, no lymphadenopathy and supple Chest: Chest palpation & inspection: normal inspection of the chest and normal palpation of entire chest wall Resp: Effort & Inspection: normal respiratory effort, able to speak in complete sentences and Actively coughing actively coughing Auscultation: no crackles, no rales, rhonchi throughout and no wheezes Cardio: Rate: regular rate Rhythm: regular rhythm Heart sounds: S1 normal heart sound present and S2 normal heart sound present GI: Inspection: normal to inspection Skin: General skin exam: normal color and no rashes or lesions noted Neuro: General: patient oriented x3 and moves all extremities Cranial nerves: Yes Equal, round and reactive pupils present Speech: normal speech Gait exam (Neuro): Normal gait present Extrem: General: normal to inspection, full ROM and no edema Psych: Appearance: grossly normal and well kempt Mental Status: mental status grossly normal Speech and movement: Normal speech and movement present Affect: normal affect Attitude: cooperative Thought process: Normal thought process present Course Course Emergency Course: Patient is aware of diagnosis, understands and agrees to treatment plan. Anticipatory guidance given. Patient agrees to follow-up as directed and is aware of reasons to seek care at the emergency department. Portions of this record may have been created with voice recognition software Level of Care: Express Care Visit Vital Signs Vital signs: Reviewed MDM - URI/Sore Throat MDM Narrative Medical decision making narrative: Discharge instructions reviewed with patient, as well as provided in writing per nursing staff. The instructions also include specific and strict return/GO TO THE ER as well as f/u information. All questions have been answered, and the patient deny any further questions with discharge and discharge plan. Differential diagnosis considered: Ryan virus, strep pharyngitis, allergic rhinitis, upper respiratory tract infection, sinusitis, rhinosinusitis, nasopharyngitis. viral pharyngitis, otitis media, otitis externa, otitis effusion, foreign body, cerumen impaction, viral syndrome, and influenza.? Exam findings show no acute concerns or changes; patient is non-toxic appearing and is in no distress.? Patient is appropriate for outpatient treatment and follow-up.? Medical Records Attestation: I reviewed the patient's medical records. Discharge Plan Discharge Clinical Impression: Acute purulent bronchitis Patient Disposition: Home, Self-Care Condition: Stable Instructions: Acute Bronchitis (ED) Additional Instructions: Take antibiotic as prescribed. Take steroids in the morning with food. Other symptomatic treatments include: -Alternate Tylenol and Motrin per package directions for fever or pain. -Antihistamine medication such as Benadryl at night and Zyrtec/Claritin/Angie during the day can help improve symptoms. -Use Flonase twice a day for 5 days then daily to help reduce the inflammation and dry up your sinuses. -You can also use Sudafed or Mucinex. Be sure to drink plenty of water with these medications at least 8 ounces with every dose and it is important to drink 8 to 10 glasses of water per day. Water is a natural decongestant -Eat and drink things that are easy to swallow, like tea or soup, or popsicles. -Oral rinses such as: Salt water gargles and/or may use topical anesthetic (eg. Chloraseptic spray) or lozenges to relieve dryness or throat pain). -Frequent hand washing or hand instrument sterilizer is one of the best ways to prevent spread of infection. -Using a vaporizer or humidifier at night will also help thin secretions and help with coughing up phlegm. -Follow up with primary care provider in 3-5 days if condition is not improving - For new or worsening symptoms go directly to the nearest ER Prescriptions: New prednisone 20 mg tablet 40 mg PO DAILY 5 Days Qty: 10 0RF cefdinir 300 mg capsule 300 mg PO Q12H 10 Days Qty: 20 0RF No Action prazosin 1 mg capsule 1 mg PO HS Hold Instructions: HOLD - resume when okay with your doctor Rx Instructions: TAKES FOR NIGHT TERRORS/PTSD Airsupra 90-80 mcg/actuation HFA aerosol inhaler 2 inh inhalation TID PRN (Reason: shortness of breath) Qty: 5.9 3RF albuterol sulfate 2.5 mg /3 mL (0.083 %) solution for nebulization 2.5 mg inhalation Q4-6H PRN (Reason: shortness of breath or wheezing) Qty: 90 1RF bupropion HCl 150 mg tablet extended release 24 hr 100 mg PO QAM ondansetron 4 mg tablet,disintegrating 4 mg PO Q8H PRN (Reason: nausea and vomiting) Qty: 15 0RF trazodone 100 mg tablet 100 mg PO QHS PRN (Reason: Insomnia) Qty: 90 0RF atorvastatin 10 mg tablet 10 mg PO DAILY Qty: 90 1RF Nurtec ODT 75 mg tablet,disintegrating 75 mg PO DAILY PRN (Reason: migraine headache) Qty: 15 11RF montelukast 10 mg tablet 10 mg PO QHS Qty: 90 1RF lubiprostone [Amitiza] 24 mcg capsule 24 mcg PO BID Qty: 60 6RF Trelegy Ellipta 100-62.5-25 mcg blister with device 1 inh inhalation DAILY Qty: 60 2RF potassium chloride 20 mEq tablet extended release 20 meq PO DAILY Qty: 90 2RF (DME) Aerochamber MV Spacer See Rx Instructions .ROUTE .MEDSUPPLY Qty: 1 0RF Rx Instructions: to use with inhalers prednisone 10 mg tablet 10 mg PO TID Qty: 15 0RF Rx Instructions: Take 3 tablets each morning for 5 days. (DME) nebulizers [Altera Nebulizer System] Misc See Rx Instructions .Route Qty: 1 0RF Rx Instructions: As directed gabapentin 300 mg capsule 300 mg PO TID Qty: 90 2RF furosemide 20 mg tablet See Rx Instructions .ROUTE .COMPLEX Qty: 90 1RF Dose Instruction: TAKE 1 TABLET BY MOUTH EVERY MORNING Rx Instructions: TAKE 1 TABLET BY MOUTH EVERY MORNING spironolactone 25 mg tablet 25 mg PO QAM Qty: 90 1RF Rx Instructions: TAKE 1 TABLET BY MOUTH DAILY baclofen 20 mg tablet 20 mg PO TID Qty: 90 0RF omeprazole 20 mg capsule,delayed release(DR/EC) 20 mg PO HS Qty: 90 1RF cetirizine 10 mg tablet See Rx Instructions .ROUTE .COMPLEX Qty: 90 1RF Dose Instruction: TAKE 1 TABLET BY MOUTH DAILY Rx Instructions: TAKE 1 TABLET BY MOUTH DAILY sumatriptan succinate [Imitrex] 50 mg tablet 50 mg PO ONCE PRN (Reason: migraine headache) Qty: 9 2RF Follow-up/Referrals: Blake Lindsey MD [Primary Care Provider] - 3 Days Stand Alone Forms: Work/School Release IP Time of Disposition: 15:14
[2024-07-03 14:40] VITALS: BP 133/82; PULSE 111; RESP 20; TEMP 36.7; O2SAT 100
== END 2024-07-03 15:19 | disposition home or self-care (01) ==
PROVIDERS: Emergency Provider Nurse Practitioner Family; PCP Family Medicine
DX: J20.9 Acute bronchitis, unspecified (principal); Z87.891 Personal history of nicotine dependence; J44.9 Chronic obstructive pulmonary disease, unspecified; M16.12 Unilateral primary osteoarthritis, left hip; Z85.828 Personal history of other malignant neoplasm of skin
CPT/HCPCS: 99213; G0463

== ENCOUNTER 2024-07-22 11:55 | Emergency (ER) | payer MEDICARE, SELFPAY ==
--- NOTE | ~2024-07-22 | XR_ITS ---
EXAMINATION: XR chest 2V DATE: 07/22/2024 13:46 INDICATION: Cough and wheezing. TECHNIQUE: Frontal and lateral views of the chest were obtained on 3 radiographs. COMPARISON: Chest 2 views 03/22/2024 FINDINGS: There is mild atelectasis at left lung base. No pleural effusion or pneumothorax. The heart size is normal. There are changes of posterior fusion procedure in cervical thoracic spine. IMPRESSION: 1. Mild atelectasis at left lung base. Reviewed, dictated and finalized at location A. UTER SYSTEM TECHNICIAN
[2024-07-22 12:23] VITALS: BP 113/76; PULSE 110; RESP 18; TEMP 36.9; O2SAT 98
--- NOTE | 2024-07-22 13:25 | ED_ITS ---
HPI - URI/Sore Throat General Chief Complaint: Upper Respiratory Infection Stated Complaint: sob Source: patient Mode of arrival: ambulatory Limitations: no limitations History of Present Illness HPI Narrative: 53-year-old female presents to [facility] with complaints of 3 history of nasal congestion, nonproductive cough and shortness of breath. Patient was evaluated here through so, diagnosed with bronchitis and was given a round of cefdinir and prednisone at that time. Patient reports history of pneumonia multiple times. Patient has fever, body aches, chills, nausea vomiting or diarrhea. Patient reports that she called her primary care provider for follow-up appointment but they were unable to see her. MD elicited complaint: cough, rhinorrhea and nasal congestion Onset (ago): week(s) (3) Able to tolerate fluids by mouth: Yes Exacerbating factors: nothing Relieving factors: nothing Treatments prior to arrival: antibiotics Related Data Home Medications ?Medication ?Instructions ?Recorded ?Confirmed ?Last Taken ?Type prazosin 1 mg capsule 1 mg PO HS 01/15/21 07/03/24 02/06/21 History bupropion HCl 150 mg 24 hr tablet, 100 mg PO QAM 10/13/23 07/03/24 Unknown History extended release Allergies Allergy/AdvReac Type Severity Reaction Status Date / Time amoxicillin Allergy Unknown Hives Verified 07/22/24 12:57 codeine Allergy Unknown PASSED OUT Verified 07/22/24 12:57 Penicillins Allergy Unknown Hives Verified 07/22/24 12:57 lidocaine AdvReac Other Verified 07/22/24 12:57 Review of Systems Constitutional: Constitutional: Denies chills, Denies fatigue, Denies fever(s) and Denies weakness ENT: Denies dizziness, Denies epistaxis, Reports nasal congestion and Denies sore throat Respiratory: Respiratory: Reports cough, Reports dyspnea and Denies wheezing Gastrointestinal: Gastrointestinal: Denies diarrhea, Denies nausea and Denies vomiting Integumentary/Breasts: Skin/Breast: Denies erythema and Denies rash Neurologic: Denies syncope and Denies headache(s) [facility] Past Medical History Medical History COPD exacerbation Nausea Cerumen impaction Hemorrhoids Constipation due to opioid therapy Basal cell carcinoma (BCC) of crown Pneumonia due to COVID-19 virus Osteoma of face Migraines PTSD (post-traumatic stress disorder) Anterior tibial tendon tear, traumatic Osteoarthritis of left hip COPD mixed type Surgical History Surgical History History of spinal surgery 2012, 2014 History of oral surgery 2012 History of knee surgery R - 2008 L - 2007 Family History Family History Mother Hypertension Heart disease Grandparent Family history of lung cancer Father Family history of malignant neoplasm of thyroid Heart disease Family history of lung cancer Acute myocardial infarction Sibling No problems noted. Other Family history of arthritis Family history of cardiovascular disease Family history of malignant neoplasm of breast Unknown family medical history Social History Social History Social History: patient is a former smoker and quit 23 years ago after about 10 years of smoking. She does not do marijuana, drugs or alcohol. She is on disability due to her back pain. She would like her son, Armando, to be her surrogate decision maker if needed. She would like to be a full code. Smoking packs per day: 1 Smoking cigarettes per day: 20.0 Years smoked: 13 Smoking pack-years: 13.00 Smoking status: Former smoker Tobacco type: cigarettes Second hand tobacco smoke exposure: No Smoking end date: 01/30/98 Alcohol intake: current Substance use: current Substance use type: marijuana Do You Feel Safe in your Home?: Yes Lack of Transportation: No Lack of Food: Never True Current Housing: I Have Housing Concerned About Future Housing: No Difficulty Paying Gas/Electric Bills: No Difficulty Paying for Meds: No Currently Unemployed: No Education: Associate Degree Difficulty w/ Childcare or Family Care: No Living arrangements: with family Additional living arrangements comments: boyfriend Occupation/Education: retired 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 Gender identity (if verbalized by the patient): Female Sexual Orientation (if Verbalized by the Patient): Straight or Heterosexual Spiritual care concerns: No Agree to blood products: Yes Comments At time of signature, I agree with nursing past medical, surgical, social and family history. There is no relevant family history pertinent to the presenting complaint. Exam Const: General: healthy appearing and no acute distress Nutritional Appearance: well nourished Orientation/consciousness: patient oriented x3 Limitations: no limitations HENMT: Head: normal to inspection Ears: external ears normal and TM's normal bilaterally Face/Nose/Sinus: Normal external nose present and Normal nares present Mouth: Yes Normal oral and palatal mucosa present and Yes moist mucous membranes Teeth and gingiva: dentition normal Throat: posterior oropharynx normal and uvula midline Eyes: Conjunctivae: conjunctivae normal Neck: Neck: normal visual inspection Resp: Effort & Inspection: normal respiratory effort and not labored Auscultation: clear to auscultation bilaterally, no crackles, no rales, no rhonchi and no wheezes Cardio: Rate: regular rate Rhythm: regular rhythm Heart sounds: no murmurs Skin: General skin exam: normal color Rashes: no rashes Neuro: General: patient oriented x3 Speech: normal speech Gait exam (Neuro): Normal gait present Psych: Affect: normal affect Attitude: cooperative Course Course Level of Care: Express Care Visit Vital Signs Vital signs: Vital Signs Temperature 36.9 C 07/22/24 12:23 Pulse Rate 110 H 07/22/24 12:23 Respiratory Rate 18 07/22/24 12:23 Blood Pressure 113/76 07/22/24 12:23 Pulse Oximetry 98 07/22/24 12:23 Oxygen Delivery Room Air 07/22/24 12:23 Temperature 36.9 C 07/22/24 12:23 Pulse Rate 110 H 07/22/24 12:23 Respiratory Rate 18 07/22/24 12:23 Blood Pressure 113/76 07/22/24 12:23 Pulse Oximetry 98 07/22/24 12:23 Oxygen Delivery Room Air 07/22/24 12:23 MDM - URI/Sore Throat MDM Narrative Medical decision making narrative: Discussed chest x-ray results with patient. Instructed patient to take medications as prescribed. Patient reports that Zithromax generally does not work well for her. Will start patient on antibiotic and steroids due to symptoms and frequent pneumonia in the past. Instructed patient to follow-up with primary care provider and to proceed to emergency room if symptoms worsen Differential Diagnosis Differential diagnosis: Likely otitis media, sinusitis and viral infection Imaging Data Radiologist's impression: Lakeisha Alejandra F 1970 Allergy/Adv: amoxicillin, codeine, Penicillins, lidocaine Express [facility] [address] [address] [phone] XRay Report Signed Patient: Lakeisha Alejandra : 1970 MR#: [id number] Age: 53 Acct:[id number] Loc: [facility] ADM Date: 07/22/[address]: Ordering Physician: Jasmyne Leigh APRN Date of Service: 07/22/24 Procedure(s): XR chest 2V Accession Number(s): [id number] cc: Jasmyne Leigh APRN; Blake Lindsey MD~ EXAMINATION: XR chest 2V DATE: 07/22/2024 13:46 INDICATION: Cough and wheezing. TECHNIQUE: Frontal and lateral views of the chest were obtained on 3 radiographs. COMPARISON: Chest 2 views 03/22/2024 FINDINGS: There is mild atelectasis at left lung base. No pleural effusion or pneumothorax. The heart size is normal. There are changes of posterior fusion procedure in cervical thoracic spine. IMPRESSION: 1. Mild atelectasis at left lung base. Reviewed, dictated and finalized at location A. PING BUILDER Dictated By: Sivakumar Gan MD 07/22/24 1349 Signed By: <Electronically signed by Sivakumar Gan MD in OV> 07/22/24 1350 Critical Care Time Critical Care Time Critical Care Time: No Discharge Plan Discharge Clinical Impression: Acute upper respiratory infection due to respiratory syncytial virus (RSV), Atelectasis of left lung Patient Disposition: Home, Self-Care Condition: Stable Instructions: Antibiotic Form, Upper Respiratory Infection (ED), Atelectasis (ED) Additional Instructions: Rest Increase fluids Take doxycycline and prednisone as prescribed Follow-up with primary care provider to re-evaluate symptoms and proceed to the emergency room if symptoms worsen Patient Language: [place] Citizen Prescriptions: New prednisone 20 mg tablet 40 mg PO DAILY 5 Days Qty: 10 0RF doxycycline hyclate 100 mg capsule 100 mg PO BID 10 Days Qty: 20 0RF No Action prazosin 1 mg capsule 1 mg PO HS Rx Instructions: TAKES FOR NIGHT TERRORS/PTSD Airsupra 90-80 mcg/actuation HFA aerosol inhaler 2 inh inhalation TID PRN (Reason: shortness of breath) Qty: 5.9 3RF albuterol sulfate 2.5 mg /3 mL (0.083 %) solution for nebulization 2.5 mg inhalation Q4-6H PRN (Reason: shortness of breath or wheezing) Qty: 90 1RF bupropion HCl 150 mg tablet extended release 24 hr 100 mg PO QAM ondansetron 4 mg tablet,disintegrating 4 mg PO Q8H PRN (Reason: nausea and vomiting) Qty: 15 0RF trazodone 100 mg tablet 100 mg PO QHS PRN (Reason: Insomnia) Qty: 90 0RF atorvastatin 10 mg tablet 10 mg PO DAILY Qty: 90 1RF lubiprostone [Amitiza] 24 mcg capsule 24 mcg PO BID Qty: 60 6RF Trelegy Ellipta 100-62.5-25 mcg blister with device 1 inh inhalation DAILY Qty: 60 2RF potassium chloride 20 mEq tablet extended release 20 meq PO DAILY Qty: 90 2RF (DME) Aerochamber MV Spacer See Rx Instructions .ROUTE .MEDSUPPLY Qty: 1 0RF Rx Instructions: to use with inhalers (DME) nebulizers [Altera Nebulizer System] [facility] See Rx Instructions .Route Qty: 1 0RF Rx Instructions: As directed gabapentin 300 mg capsule 300 mg PO TID Qty: 90 2RF furosemide 20 mg tablet See Rx Instructions .ROUTE .COMPLEX Qty: 90 1RF Dose Instruction: TAKE 1 TABLET BY MOUTH EVERY MORNING Rx Instructions: TAKE 1 TABLET BY MOUTH EVERY MORNING spironolactone 25 mg tablet 25 mg PO QAM Qty: 90 1RF Rx Instructions: TAKE 1 TABLET BY MOUTH DAILY baclofen 20 mg tablet 20 mg PO TID Qty: 90 0RF omeprazole 20 mg capsule,delayed release(DR/EC) 20 mg PO HS Qty: 90 1RF cetirizine 10 mg tablet See Rx Instructions .ROUTE .COMPLEX Qty: 90 1RF Dose Instruction: TAKE 1 TABLET BY MOUTH DAILY Rx Instructions: TAKE 1 TABLET BY MOUTH DAILY sumatriptan succinate [Imitrex] 50 mg tablet 50 mg PO ONCE PRN (Reason: migraine headache) Qty: 9 2RF montelukast 10 mg tablet 10 mg PO QHS Qty: 90 1RF Follow-up/Referrals: Blake Lindsey MD [Primary Care Provider] - Time of Disposition: 14:02
--- OUTSIDE RECORDS SUMMARY | 2024-07-29 17:17 | XMS_ITS ---
Author Organization [facility] As [facility] Address [address] [place] [address] Care Team Providers Care Taxonomist Name Role Phone LORNA WILLAMS, [facility] Primary Care Provider Unavail able Nia May Unavailable [phone] REASON FOR VISIT Anxiety, Medical stressors, Hx trauma Medications Medication SIG (Take, Route, Frequency, Duration) Notes Start Date End Date Status Prazosin HCl 1 MG 1 capsule at bedtime Oral Once a day for 90 days 12/14/2023 Active CHOLECALCIFEROL (VITAMIN D3) 50 MCG (2,000 UNIT) CAPSULE *Reorder from Linq[employer] for eRx and Interaction Alerts* 12/14/2023 Active Cetirizine HCl 10 MG Oral 12/14/2023 Active SUMAtriptan Succinate 50 MG Oral 12/14/2023 Active buPROPion HCl ER (XL) 150 MG 1 tablet in the morning Oral Once a day for 90 days 12/14/2023 Active Nystop 259197 UNIT/GM External 12/14/2023 Active LUBIPROSTONE 24 MCG CAPSULE *Reorder from Linq3 for eRx and Interaction Alerts* 12/14/2023 Active Ondansetron 4 MG Oral 12/14/2023 Ac tive Montelukast Sodium 10 MG Oral 12/14/2023 Active Furosemide 20 MG Oral 12/14/2023 Ac tive Baclofen 20 MG Oral 12/14/2023 Acti ve Trelegy Ellipta 200-62.5-25 MCG/ACT Inhalation *Pick strength-form from Linq3 for eRX* 12/14/2023 Active Fluticasone Propionate Diskus 50 MCG/ACT Inhalation *Reorder from [facility] for eRx and Interaction Alerts* 12/14/2023 Active Spironolactone 25 MG Oral 12/14/2023 Active Omeprazole 20 MG Oral 12/14/2023 Ac tive Ondansetron HCl 4 MG Oral 12/14/2023 Active Nurtec 75 MG Oral *[facility] for [facility] and Interaction Alerts* 12/14/2023 Active Atorvastatin Calcium 10 MG Oral 12/14/2023 Active Gabapentin 300 MG Oral 12/14/2023 A ctive Potassium Chloride ER 20 MEQ Oral 12/14/2023 Active traZODone HCl 100 MG Oral 12/14/2023 Active Tamsulosin HCl 0.4 MG Oral 12/14/2023 Active Mupirocin 2% External 12/14/2023 Active Movantik 25 MG Oral 12/14/2023 Acti ve Triamcinolone Acetonide 0.1% External 12/14/2023 Active Ferrous Sulfate 325 (65 Fe) MG Oral 12/14/2023 Active QUEtiapine Fumarate 100 MG 1 tablet at bedtime Oral Once a day for 90 days total dose 150mg 12/14/2023 Active QUEtiapine Fumarate 50 MG 1 tablet at bedtime Oral Once a day for 90 days total dose 150mg 12/14/2023 Active Social History Sex Assigned At : Social History Observation Description Sex Assigned At Female Section Notes: Encounters Encounter Location Date Provider Diagnosis [facility] [address] [facility] [address] [place] [address] 06/20/2024 Nia May Post-traumatic stres s disorder, chronic F43.12 ; Generalized anxiety disorder F41.1 and Major depressive disorder, recurrent, moderate F33.1 Assessments Encounter Date Diagnosis (ICD Code) Assessment Notes Treatment Notes Treatment Clinical Notes Section Notes 06/20/2024 Post-traumatic stress disorder, chronic (ICD-10 - F43.12) 06/20/2024 Generalized anxiety disorder (ICD-10 - F41.1) 06/20/2024 Major depressive disorder, recurrent, moderate (ICD-10 - F33.1) Plan Of Treatment Next Appt Details Follow Up: 2 Weeks, Reason: Provider Name:Nia May, 07/31/2024 09:00:00 AM, [address], [place], [address], Provider Name:Nia May, 08/22/2024 01:00:00 PM, [address], [facility] [address], [place], [address], Provider Name:Tia watkins, 10/11/2024 11:00:00 AM, [address], [facility] [address], [place], [address], Progress Notes * PARK PETERSON MDOB: [birth year] (53 yo F)Acc No.[id number]:06/20/2024 Patient:?PARK PETERSON Provider:?NIA MAY LCSW :1970???Age:53 Y???Sex:Female D ate:06/20/2024 Address:[address] [place], [place] [id number] Pcp:REMY ROTHMAN MD Data: * Time Tracker: * Date Start Time End Time Duration User Type Captured By Mode Notes 06/20/2024 01:04 PM 02:07 PM 01:02:25 Therapist Nia May [facility] * Chief Complaints: * ???1. Anxiety. 2. Medical st ressors. 3. Hx trauma. * HPI: ???History of Presenting Problem:?Date: 06/20/2024 Current symptoms:? Worry Severity:? Moderate to severe Context:? 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 ? She is worried about 's recovery and slip- handled it well and has been very supportive.? ?Currently dealing with situation with mother in law and driving aunt Nga to [facility].? ? is getting confirmed on Wednesday.?? Intervention:? During this session, clinician prompted Cl. to process thoughts and feelings associated with? current stressors? for the purpose of gaining insight. Clinician provided support and validation where appropriate.? Response:? Cl. participated actively in discussion and displayed good insight.? Cl. appears to be making good progress.? Plan: CL. reported significant financial stressors- difficulty with Social Security benefits- Cl. has an interview at [facility] tomorrow- She had medical testing on Wednesday- still dealing with pulmonary issue and basal cell lesion on head. Also discussed frustation with new in laws- getting mixed signals During this session, clinician prompted Cl. to discuss and process feelings related to current stressors for purpose of gaining insight. Clinician provided support and validation. Cl. participated actively in discussion- good progress. * Family History:?Father: Fami ly history of cancer .?Mother: Morbid obesity .?Son: Substance abuse .? * Social History:?Migrated Social History:?Migrated Social History: Alcohol Intake: Occasional 06/04/2020,Tobacco Years: Former smoker 06/04/2020,Smoking Status: 21 09/15/2023. ???. * Medications:?Taking QUEtiapi ne Fumarate 50 MG Tablet 1 tablet at bedtime Oral Once a day total dose 150mg, Taking QUEtiapine Fumarate 100 MG Tablet 1 tablet at bedtime Oral Once a day total dose 150mg, Taking Ferrous Sulfate 325 (65 Fe) MG Tablet Oral , Taking Tamsulosin HCl 0.4 MG Capsule Oral , Taking traZODone HCl 100 MG Tablet Oral , Taking Triamcinolone Acetonide 0.1% Cream External , Taking Movantik 25 MG Tablet Oral , Taking Mupirocin 2% Ointment External , Taking Potassium Chloride ER 20 MEQ Tablet Extended Release Oral , Taking Gabapentin 300 MG Capsule Oral , Taking Atorvastatin Calcium 10 MG Tablet Oral , Taking Nurtec 75 MG Tablet Disintegrating Oral , Notes to Pharmacist: *Reorder from Linq3 for eRx and Interaction Alerts*, Taking Ondansetron HCl 4 MG Tablet Oral , Taking Fluticasone Propionate Diskus 50 MCG/ACT Aerosol Powder Breath Activated Inhalation , Notes to Pharmacist: *Reorder from Linq3 for eRx and Interaction Alerts*, Taking Trelegy Ellipta 200-62.5-25 MCG/ACT Aerosol Powder Breath Activated Inhalation , Notes to Pharmacist: *Pick strength-form from Linq3 for eRX*, Taking Baclofen 20 MG Tablet Oral , Taking Omeprazole 20 MG Capsule Delayed Release Oral , Taking Spironolactone 25 MG Tablet Oral , Taking Furosemide 20 MG Tablet Oral , Taking Montelukast Sodium 10 MG Tablet Oral , Taking Ondansetron 4 MG Tablet Disintegrating Oral , Taking LUBIPROSTONE 24 MCG CAPSULE , Notes to Pharmacist: *Reorder from [facility] for eRx and Interaction Alerts*, Taking Nystop 757252 UNIT/GM Powder External , Taking SUMAtriptan Succinate 50 MG Tablet Oral , Taking Cetirizine HCl 10 MG Tablet Oral , Taking CHOLECALCIFEROL (VITAMIN D3) 50 MCG (2,000 UNIT) CAPSULE , Notes to Pharmacist: *Reorder from [facility] for eRx and Interaction Alerts*, Taking Prazosin HCl 1 MG Capsule 1 capsule at bedtime Oral Once a day , Taking buPROPion HCl ER (XL) 150 MG Tablet Extended Release 24 Hour 1 tablet in the morning Oral Once a day * Examination: ???Psychiatry: ?Appearance:?well-groomed.?Affect / mood:?appropriate.?Attention:?good.?Attitude:?cooperative.?Homicidal ideation:?none.?Suicidal ideation:?none.?Insight:?good.?Orientation:?awake, alert and oriented x 3.?Speech / language:?appropriate pitch/modulation, clear and coherent, normal rate, volume, and articulation (RVR), proper grammar used.?Thought content:?appropriate.?Thought process:?intact.? Assessment: * Assessment: 1.?Post-traumatic stress dis order, chronic - F43.12 (Primary)???2.?Generalized anxiety disorder - F41.1???3.?Major depressive disorder, recurrent, moderate - F33.1??? Plan: * Treatment: * Procedure Codes:?57696 PSYCH OTHERAPY W/PATIENT 60 MINUTES, 1036F TOBACCO NON-USER * Follow Up:?2 Weeks * Billing Information: * Visit Code:? * Procedure Codes:? 16131 PSYCHOTHERAPY W/PATIENT 60 MINUTES. 1036F TOBACCO NON-USER. 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 She is worried about 's recovery and slip- handled it well and has been very supportive. Currently dealing with situation with mother in law and driving aunt Nga to [employer]. is getting confirmed on Wednesday. Intervention: During this session, clinician prompted Cl. to process thoughts and feelings associated with current stressors for the purpose of gaining insight. Clinician provided support and validation where appropriate. Response: Cl. participated actively in discussion and displayed good insight. Cl. appears to be making good progress. Plan: CL. reported significant financial stressors- difficulty with Social Security benefits- Cl. has an interview at [facility] tomorrow- She had medical testing on Wednesday- still dealing with pulmonary issue and basal cell lesion on head. Also discussed frustation with new in laws- getting mixed signals During this session, clinician prompted Cl. to discuss and process feelings related to current stressors for purpose of gaining insight. Clinician provided support and validation. Cl. participated actively in discussion- good progress. Examination Category Sub-Category Detail Notes Category Not es Psychiatry Appearance: well-groomed Attitude: cooperative Attention: good Orientation: awake, alert and haim ented x 3 Affect / mood: appropriate Speech / language: appropriate pitch/mo dulation, clear and coherent, normal rate, volume, and articulation (RVR), proper grammar used Insight: good Thought process: intact Thought content: appropriate Suicidal ideation: none Homicidal ideation: none
--- OUTSIDE RECORDS SUMMARY | 2024-07-29 17:17 | XMS_ITS ---
Author Organization [facility] As [employer] Address [address] [place] [address] Care Team Providers Care Clinical Documentation Developer Name Role Phone LORNA WILLAMS, [facility] Primary Care Provider Unavail able Nia May Unavailable [phone] REASON FOR VISIT Hx trauma Medications Medication SIG (Take, Route, Frequency, Duration) Notes Start Date End Date Status buPROPion HCl ER (XL) 150 MG 1 tablet in the morning Oral Once a day for 90 days 12/14/2023 Active Prazosin HCl 1 MG 1 capsule at bedtime Oral Once a day for 90 days 12/14/2023 Active CHOLECALCIFEROL (VITAMIN D3) 50 MCG (2,000 UNIT) CAPSULE *Reorder from [employer] for eRx and Interaction Alerts* 12/14/2023 Active Cetirizine HCl 10 MG Oral 12/14/2023 Active SUMAtriptan Succinate 50 MG Oral 12/14/2023 Active Montelukast Sodium 10 MG Oral 12/14/2023 Active Furosemide 20 MG Oral 12/14/2023 Ac tive Nystop 932212 UNIT/GM External 12/14/2023 Active LUBIPROSTONE 24 MCG CAPSULE *Reorder from [employer] for eRx and Interaction Alerts* 12/14/2023 Active Ondansetron 4 MG Oral 12/14/2023 Ac tive Spironolactone 25 MG Oral 12/14/2023 Active Omeprazole 20 MG Oral 12/14/2023 Ac tive Baclofen 20 MG Oral 12/14/2023 Acti ve Trelegy Ellipta 200-62.5-25 MCG/ACT Inhalation *Pick strength-form from [facility] for eRX* 12/14/2023 Active Fluticasone Propionate Diskus 50 MCG/ACT Inhalation *[facility] from [facility] for [facility]Rx and Interaction Alerts* 12/14/2023 Active Potassium Chloride ER 20 MEQ Oral 12/14/2023 Active Ondansetron HCl 4 MG Oral 12/14/2023 Active Nurtec 75 MG Oral *Reorder from [facility] for eRx and Interaction Alerts* 12/14/2023 Active Atorvastatin Calcium 10 MG Oral 12/14/2023 Active Gabapentin 300 MG Oral 12/14/2023 A ctive Mupirocin 2% External 12/14/2023 Active Movantik 25 MG Oral 12/14/2023 Acti ve Triamcinolone Acetonide 0.1% External 12/14/2023 Active traZODone HCl 100 MG Oral 12/14/2023 Active Tamsulosin HCl 0.4 MG Oral 12/14/2023 Active Ferrous Sulfate 325 (65 Fe) [...] History Observation Description Sex Assigned At Female Encounters Encounter Location Date Provider Diagnosis [facility] [address] [place] [address] 07/18/2024 Nia May Post-traumatic stres s disorder, chronic F43.12 ; Generalized anxiety disorder F41.1 and Major depressive disorder, recurrent, moderate F33.1 Assessments Encounter Date Diagnosis (ICD Code) Assessment Notes Treatment Notes Treatment Clinical Notes Section Notes 07/18/2024 Post-traumatic stress disorder, chronic (ICD-10 - F43.12) 07/18/2024 Generalized anxiety disorder (ICD-10 - F41.1) 07/18/2024 Major depressive disorder, recurrent, moderate (ICD-10 - F33.1) Plan Of Treatment Next Appt Details Follow Up: 1 Week, Reason: Provider Name:Nia May, 07/31/2024 09:00:00 AM, [address], [place], [address], Provider Name:Nia May, 08/22/2024 01:00:00 PM, [address], [place] [address], [place], [address], Provider Name:Tia watkins, 10/11/2024 11:00:00 AM, [address], [place] [address], [place], [address], Progress Notes * PARK PETERSON MDOB: [birth year] (53 yo F)Acc No.[id number]:07/18/2024 Patient:?PARK PETEROSN Provider:?NIA MAY LCSW :1970???Age:53 Y???Sex:Female D ate:07/18/2024 Address:[address] [place] [address] Pcp:REMY ROTHMAN MD Data: * Time Tracker: * Date Start Time End Time Duration User Type Captured By Mode Notes 07/18/2024 11:13 AM 12:22 PM 01:08:56 Therapist Nia May [facility] * Chief Complaints: * ???1. Hx trauma. * HPI: ???Functional Status:?Date: 07/18/2024 Current symptoms: Anxiety, rumination, worry Severity:? Moderate Context:? Recent stressors associated with financial concerns- car battery ; all four tires needed replaced, had bowel obstruction (hospital from Wednesday to Wednesday), washing machine parts.? CL. had been seriously ill with bronchitis in the past month.? Discussed interactions with MIL who told didn't care if they got Intervention:? During this session, clinician prompted Cl. to process thoughts and feelings associated with? recent medical and financial stressors for the purpose of gaining insight. Clinician provided support and validation where appropriate.? Response:? Cl. participated actively in discussion and displayed good insight.? Cl. appears to be making good progress.? Plan:. * Family History:?Father: Fami ly history of cancer .?Mother: Morbid obesity .?Son: Substance abuse .? * Medications:?Taking QUEtiapi ne Fumarate 50 MG [...] Oral , Notes to Pharmacist: *Reorder from [facility] for eRx and Interaction Alerts*, Taking Ondansetron HCl 4 MG Tablet Oral , Taking Fluticasone Propionate Diskus 50 MCG/ACT Aerosol Powder Breath Activated Inhalation , Notes to Pharmacist: *Reorder from [facility] for eRx and Interaction Alerts*, Taking Trelegy Ellipta 200-62.5-25 MCG/ACT Aerosol Powder Breath Activated Inhalation , Notes to Pharmacist: *Pick strength-form from [facility] for eRX*, Taking Baclofen 20 MG Tablet Oral , Taking Omeprazole 20 MG Capsule Delayed Release Oral , Taking Spironolactone 25 MG Tablet Oral , Taking Furosemide 20 MG Tablet Oral , Taking Montelukast Sodium 10 MG Tablet Oral , Taking Ondansetron 4 MG Tablet Disintegrating Oral , Taking LUBIPROSTONE 24 MCG CAPSULE , Notes to Pharmacist: *Reorder from [facility] for eRx and Interaction Alerts*, Taking Nystop 296897 UNIT/GM Powder External , Taking SUMAtriptan Succinate 50 MG Tablet Oral , Taking Cetirizine HCl 10 MG Tablet Oral , Taking CHOLECALCIFEROL (VITAMIN D3) 50 MCG (2,000 UNIT) CAPSULE , Notes to Pharmacist: *Reorder from [facility] for eRx and Interaction Alerts*, Taking Prazosin HCl 1 MG Capsule 1 capsule at bedtime Oral Once a day , Taking buPROPion HCl ER (XL) 150 MG Tablet Extended Release 24 Hour 1 tablet in the morning Oral Once a day , Medication List reviewed and reconciled with the patient * Examination: ???Psychiatry: ?Appearance:?well-groomed.?Affect / mood:?appropriate.?Attention:?good.?Attitude:?cooperative.?Homicidal ideation:?none.?Suicidal ideation:?none.?Insight:?good.?Orientation:?awake, alert and oriented x 3.?Speech / language:?appropriate pitch/modulation, clear and coherent, normal rate, volume, and articulation (RVR), proper grammar used.?Thought content:?appropriate.?Thought process:?intact.? Assessment: * Assessment: 1.?Post-traumatic stress dis order, chronic - F43.12 (Primary)???2.?Generalized anxiety disorder - F41.1???3.?Major depressive disorder, recurrent, moderate - F33.1??? Plan: * Treatment: * Procedure Codes:?08194 PSYCH OTHERAPY W/PATIENT 60 MINUTES, G9903 Pt scrn tbco id as non user * Follow Up:?1 Week * Billing Information: * Visit Code:? * Procedure Codes:? 43412 PSYCHOTHERAPY W/PATIENT 60 MINUTES. G9903 Pt scrn tbco id as non user. 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 CL. had been seriously ill with bronchitis in the past month. Discussed interactions with MIL who told didn't care if they got Intervention: During this session, clinician prompted Cl. to process thoughts and feelings associated with recent medical and financial stressors for the purpose of gaining insight. Clinician provided support and validation where appropriate. Response: Cl. participated actively in discussion and displayed good insight. Cl. appears to be making good progress. Plan: Examination Category Sub-Category Detail Notes Category Not [...]
--- OUTSIDE RECORDS SUMMARY | 2024-07-29 17:18 | XMS_ITS ---
Author Organization [facility] As [employer] Address [address] [place] [address] Care Team Providers Care Dope Dry House Operator Name Role Phone LORNA WILLAMS, [facility] Primary Care Provider Unavail able Nia May Unavailable [phone] REASON FOR VISIT Hx Trauma, Medical stressors Medications Medication SIG (Take, Route, Frequency, Duration) Notes Start Date End Date Status Prazosin HCl 1 MG 1 capsule at bedtime Oral Once a day for 90 days 12/14/2023 Active CHOLECALCIFEROL (VITAMIN D3) 50 MCG (2,000 UNIT) CAPSULE *Reorder from [email or web address] for eRx and Interaction Alerts* 12/14/2023 Active buPROPion HCl ER (XL) 150 MG 1 tablet in the morning Oral Once a day for 90 days 12/14/2023 Active Cetirizine HCl 10 MG Oral 12/14/2023 Active SUMAtriptan Succinate 50 MG Oral 12/14/2023 Active Nystop 871984 UNIT/GM External 12/14/2023 Active Montelukast Sodium 10 MG Oral 12/14/2023 Active Furosemide 20 MG Oral 12/14/2023 Ac tive LUBIPROSTONE 24 MCG CAPSULE *Reorder from [email or web address] for eRx and Interaction Alerts* 12/14/2023 Active Ondansetron 4 MG Oral 12/14/2023 Ac tive Baclofen 20 MG Oral 12/14/2023 Acti ve Trelegy Ellipta 200-62.5-25 MCG/ACT Inhalation *Pick strength-form from [email or web address] for eRX* 12/14/2023 Active Spironolactone 25 MG Oral 12/14/2023 Active Omeprazole 20 MG Oral 12/14/2023 Ac tive Fluticasone Propionate Diskus 50 MCG/ACT Inhalation *[facility] from [facility] for eRx and Interaction Alerts* 12/14/2023 Active Ondansetron HCl 4 MG Oral 12/14/2023 Active Nurtec 75 MG Oral *Reorder from [facility] for eRx and Interaction Alerts* 12/14/2023 Active Potassium Chloride ER 20 MEQ Oral 12/14/2023 Active Atorvastatin Calcium 10 MG Oral 12/14/2023 Active Gabapentin 300 MG Oral 12/14/2023 A ctive traZODone HCl 100 MG Oral 12/14/2023 Active Tamsulosin HCl 0.4 MG Oral 12/14/2023 Active Movantik 25 MG Oral 12/14/2023 Acti ve Triamcinolone Acetonide 0.1% External 12/14/2023 Active Mupirocin 2% External 12/14/2023 Active Ferrous Sulfate 325 (65 [...] Notes: Encounters Encounter Location Date Provider Diagnosis [facility] [address] [facility] [address] [place] [address] 05/23/2024 Nia May Post-traumatic stres s disorder, chronic F43.12 ; Generalized anxiety disorder F41.1 and Major depressive disorder, recurrent, moderate F33.1 Assessments Encounter Date Diagnosis (ICD Code) Assessment Notes Treatment Notes Treatment Clinical Notes Section Notes 05/23/2024 Post-traumatic stress disorder, chronic (ICD-10 - F43.12) 05/23/2024 Generalized anxiety disorder (ICD-10 - F41.1) 05/23/2024 Major depressive disorder, recurrent, moderate (ICD-10 - F33.1) Plan Of Treatment Next Appt Details Follow Up: 2 Weeks, Reason: Provider Name:Nia May, 07/31/2024 09:00:00 AM, [address], [address], [place], [address], Provider Name:Nia May, 08/22/2024 01:00:00 PM, [address], [address], [address], Provider Name:Tia watkins, 10/11/2024 11:00:00 AM, [address], [address], [address], Progress Notes * PARK PETERSON MDOB: [birth year] (53 yo F)Acc No.[id number]:05/23/2024 Patient:?PARK PETERSON Provider:?NIA MAY LCSW :1970???Age:53 Y???Sex:Female D ate:05/23/2024 Address:[address] [place] [address] Pcp:REMY ROTHMAN MD Data: * Time Tracker: * Date Start Time End Time Duration User Type Captured By Mode Notes 05/23/2024 02:14 PM 03:03 PM 00:48:55 Therapist Nia May [facility] * Chief Complaints: * ???1. Hx Trauma. 2. Medical stressors. * HPI: ???History of Presenting Problem:?PTSD?Recurrent, involuntary, and intrusive distressing memories of the traumatic event, Unwanted upsetting memories, physical reactivity after exposure to traumatic reminders, avoidance of memories, Hypervigilance, overly negative thoughts and assumptions about oneself or the world, Aggravated by: stress.? CL. reported significant financial stressors- difficulty with Social Security benefits- Cl. has an interview at [facility] tomorrow- She had medical testing on Wednesday- still dealing with pulmonary issue and basal cell lesion on head. Also discussed frustation with new in laws- getting mixed signals During this session, clinician prompted Cl. to discuss and process feelings related to current stressors for purpose of gaining insight.? Clinician provided support and validation.? Cl. participated actively in discussion- good progress. * Family History:?Father: Fami ly history of cancer .?Mother: Morbid obesity .?Son: Substance abuse .? * Social History:?Migrated Social History:?Migrated Social History: Alcohol Intake: Occasional 06/04/2020,Tobacco Years: Former smoker 06/04/2020,Smoking Status: 09/15/2023. ???. * Medications:?Taking QUEtiapi ne Fumarate [...] Oral , Notes to Pharmacist: *Reorder from [facility] for eRx and Interaction Alerts*, Taking Ondansetron HCl 4 MG Tablet Oral , Taking Fluticasone Propionate Diskus 50 MCG/ACT Aerosol Powder Breath Activated Inhalation , Notes to Pharmacist: *Reorder from [facility] for eRx and Interaction Alerts*, Taking Trelegy Ellipta 200-62.5-25 MCG/ACT Aerosol Powder Breath Activated Inhalation , Notes to Pharmacist: *Pick strength-form from [facility] for eRX*, Taking Baclofen 20 MG Tablet Oral , Taking Omeprazole 20 MG Capsule Delayed Release Oral , Taking Spironolactone 25 MG Tablet Oral , Taking Furosemide 20 MG Tablet Oral , Taking Montelukast Sodium 10 MG Tablet Oral , Taking Ondansetron 4 MG Tablet Disintegrating Oral , Taking LUBIPROSTONE 24 MCG CAPSULE , Notes to Pharmacist: *Reorder from [facility] for eRx and Interaction Alerts*, Taking Nystop 003169 UNIT/GM Powder External , Taking SUMAtriptan Succinate 50 MG Tablet Oral , Taking Cetirizine HCl 10 MG Tablet Oral , Taking CHOLECALCIFEROL (VITAMIN D3) 50 MCG (2,000 UNIT) CAPSULE , Notes to Pharmacist: *Reorder from [facility] for eRx and Interaction Alerts*, Taking Prazosin [...] - F33.1??? Plan: * Treatment: * Procedure Codes:?51115 PSYCH OTHERAPY W/PATIENT 45 MINUTES * Follow Up:?2 Weeks * Billing Information: * Visit Code:? * Procedure Codes:? 98480 PSYCHOTHERAPY W/PATIENT 45 MINUTES. 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 reported significant financial stressors- difficulty with Social Security benefits- Cl. has an interview at [facility] tomorrow- She had medical testing on Wednesday- [...]
--- OUTSIDE RECORDS SUMMARY | 2024-07-29 17:18 | XMS_ITS | Clinical Summary ---
Author Organization [facility] [employer] Address [address] [place] [address] Care Team Providers Care Industrial Safety Engineer Name Role Phone Blake Lindsey MD Primary Care Provider [phone] Source Comments [facility],non-owned Affiliates and Associated Physician Practices is amultiple site organization consisting of ambulatory clinics and hospital sitesin [place], [place] and [place]. This disclosure is being madepursuant to the Care Everywhere program and may not contain all information available regarding this patient. Last updated 18.[facility] [employer] Allergies Active Allergy Reactions Criticality Noted Date Comments Amoxicillin Rash Medium 02/19/2019 Codeine Other Low 11/03/2012 Passes out, Passes out Epinephrine Other Low 11/03/2012 When injected in mouth for dental procedures, makes extremities go numb Patient metabolizes medication quickly Penicillins Rash Medium 11/03/2012 Medications * Be aware that medications may not be up to date on this document. Alwaysverify current medications with the patient. Medication Sig Dispensed Refills Start Date End Date Status albuterol (PROVENTIL;VENTOLI N) (2.5 MG/3ML) 0.083% nebulizer solutionIndication s:Bronchospastic Disease INHALE 3 ML BY NEBULIZATION 3 TIMES DAILY Reasons: Disease Involving Spasms of the Bronchus 1 vial 01/12/2019 Active Additional Information Patient taking differently: 2.5 mg Inhalation 3 TIMES DAILY PRN, Shortness of Breath, Wheezing, INHALE 3 ML BY NEBULIZATION 3 TIMES DAILY, Indications: Bronchospastic Disease, Reported on 06/09/2022 QUEtiapine (SEROQUEL) 100 MG tabletIndications: Major Depressive Disorder Take 1 tablet by mouth at bedtime Reasons: Major Depressive Disorder 30 tablet 01/12/2019 Active furosemide (LASIX) 20 MG tabletIndications: Edema Take 1 tablet by mouth once daily Reasons: Edema 30 tablet 01/12/2019 Active SUMAtriptan (IMITREX) 50 MG tabletIndications: Migraine Take 1 tablet by mouth once as needed for Migraine Maximum daily dose: 200mg/24 hours Reasons: Migraine Headache 30 tablet 01/12/2019 Active NYSTOP [id number] UNIT/GM powder Apply 1 Dose to affected area as directed 1 03/06/2019 Active potassium chloride ER (KLOR-CON) 20 MEQ tablet Take 1 (one) tablet by mouth once daily 0 04/05/2019 Active spironolactone (ALDACTONE) 25 MG tablet Take 1 (one) tablet by mouth once daily 2 03/09/2019 Active ondansetron (ZOFRAN) 4 MG tablet Take 1 (one) tablet by mouth as needed for Nausea/Vomiting 04/17/2020 Active montelukast (SINGULAIR) 10 MG tablet Take 1 (one) tablet by mouth once daily 06/21/2020 Active gabapentin (NEURONTIN) 300 MG capsule Take 1 (one) capsule by mouth 3 times daily 06/04/2020 Active cetirizine (ZYRTEC) 10 MG tablet Take 1 (one) tablet by mouth once daily as needed 04/17/2020 Active traZODone (DESYREL) 50 MG tablet Take 1 (one) tablet by mouth nightly as needed for Insomnia 06/26/2020 Active baclofen (LIORESAL) 20 MG tablet Take 1 (one) tablet by mouth as directed 08/20/2020 Active escitalopram (LEXAPRO) 20 MG tablet Take 1 (one) tablet by mouth once daily 07/19/2020 Active omeprazole (PRILOSEC) 20 MG capsule Take 1 (one) capsule by mouth once daily 08/09/2020 Active mupirocin (BACTROBAN) 2 % ointment Apply to affected area 3 times daily To bilateral nares 22 g 1 03/17/2021 Active lubiprostone (Amitiza) 24 MCG capsule Take 1 (one) capsule by mouth 2 times daily with morning and evening meal Active atorvastatin (LIPITOR) 10 MG tablet Take 1 (one) tablet by mouth at bedtime 01/16/2021 Active buPROPion XL 24hr (WELLBUTRIN-XL) 150 MG tablet Take 1 (one) tablet by mouth once daily 12/16/2020 Active prazosin (MINIPRESS) 1 MG capsule Take 1 (one) capsule by mouth as directed 02/25/2021 Active ascorbic acid (VITAMIN C) 500 MG tabletIndications: Iron deficiency anemia, unspecified iron deficiency anemia type Take 1 (one) tablet by mouth once daily Take 1 tablet at the same time as your ferrous sulfate (iron tablet). 90 tablet 3 08/14/2021 Active FeroSul 325 (65 Fe) MG tabletIndications: Iron deficiency anemia, unspecified iron deficiency anemia type TAKE 1 TABLET BY MOUTH ONCE DAILY, TAKE AT TGHE SAME TIME YOUR VITAMIN TABLET 90 tablet 3 04/08/2022 Active Additional Information Patient not taking.Reported on 12/22/2023 Nurtec 75 MG tablet Take 75 mg by mouth as directed 07/14/2022 Active Xtampza ER 13.5 MG capsule Take 1 (one) capsule by mouth every 12 hours 07/27/2022 Active QUEtiapine (SEROquel) 50 MG tablet Take 1 (one) tablet by mouth at bedtime 07/20/2022 Active traZODone (Desyrel) 100 MG tablet Take 1 (one) tablet by mouth nightly as needed 07/20/2022 Active Movantik 25 MG tablet 09/09/2022 Active Vitamin D3 (Cholecalciferol) 50 MCG (1999 UT) capsuleIndications :Vitamin D deficiency TAKE 1 CAPSULE BY MOUTH EVERY DAY 90 capsule 3 08/31/2023 Active nitrofurantoin monohyd macro crystals (Macrobid) 100 MG capsule Take 1 (one) capsule by mouth 2 times daily with morning and evening meal 06/26/2023 Active ondansetron, disintegrating, (Zofran ODT) 4 MG tablet Take 1 (one) tablet by mouth every 8 hours as needed 12/07/2023 Active phentermine (Adipex-P) 37.5 MG tablet Take 1 (one) tablet by mouth once daily 12/12/2023 Active predniSONE (Deltasone) 10 MG tablet Take 1 (one) tablet by mouth once daily 10/22/2023 Active silver sulfADIAZINE (Silvadene) 1 % cream Apply to affected area once daily 05/14/2023 Active predniSONE (Deltasone) 20 MG tablet Take 2 (two) tablets by mouth once daily 10 tablet 04/11/2024 Active fluticasone-umecli din-vilant (Trelegy Ellipta) 200-62.5-25 MCG/ACT inhaler Inhale 1 (one) puff by mouth once daily 60 Each 3 04/11/2024 Active levalbuterol (Xopenex) 0.31 MG/3ML nebulizer solution Inhale 3 mL by mouth every 8 hours as needed for Shortness of Breath or Wheezing 270 mL 4 04/11/2024 Active Active Problems Problem Noted Date Diagnosed Date Inflamed seborrheic keratosis 03/02/2023 Actinic keratosis 03/02/2023 Neoplasm of uncertain behavior of skin 3 History of basal cell carcinoma (BCC) 10/03/2022 Multiple benign melanocytic nevi of upper and lower extremities and trunk 10/03/2022 Lentigines 10/03/2022 Seborrheic keratosis 10/03/2022 Chronic, continuous use of opioids 07/18/2021 Parotid nodule 08/22/2020 Assessment & Plan (08/22/2020 10:50 AM COSTUME DESIGNER): Left sided parotid nodule - previously noted on PET CT in 2019 measuring 8mm with SUV of 2.7; recent CT of spine without contrast read notes a partially imaged left sided parotid nodule measuring up to 11 mm. Patient is scheduled to follow up with her oncologist today. Advised patient that we should keep a close eye on this and we are happy to assist in additional surveillance and or imaging if needed. Given patients history may further discuss FNA if indicated vs re-imaging TMJ (temporomandibular joint disorder) 0 Assessment & Plan (07/11/2020 2:03 PM COSTUME DESIGNER): Advised patient to use heat to the area. Discussed changing chewing pattern, discussed awareness of grinding and clenching teeth. Discussed possible relaxation techniques. Discussed the use of naproxen or Advil for the relief of discomfort when symptoms are aggravated. Advised patient not take naproxen with any other NSAID. Provided patient with educational material regarding TMJ. No signs of an acute infection on exam today. I suspect her TMJ is contributing to her otalgia. She was instructed to follow up for acute symptoms for further evaluation and treatment recommendations. Non-seasonal allergic rhinitis 07/11/2020 Assessment & Plan (08/22/2020 10:46 AM COSTUME DESIGNER): Continue with previous recommendations. Patient states she has been compliant. Follow up as needed Assessment & Plan (07/11/2020 1:57 PM COSTUME DESIGNER): Patient states she has a history of allergies and takes zyrtec in the evening. She previously used nasal rinses but does not anymore. Recommend patient restart daily sinus rinses, daily flonase and continue zyrtec. Educated patient on proper nasal spray administration as well as how to perform saline irrigation. Educated patient on signs/symptoms of an acute infection. She should follow up as needed. Bilateral arm weakness 03/09/2019 Severe episode of recurrent major depressive disorder, without psychotic features 01/11/2019 Mild persistent asthma, uncomplicated 06/22/2017 Carpal tunnel syndrome of right wrist 09/22/2016 Primary osteoarthritis of right knee 09/09/2016 Primary osteoarthritis of left knee 09/09/2016 Primary osteoarthritis of shoulder 09/09/2016 Acromioclavicular joint arthritis 09/09/2016 Epistaxis, recurrent 08/31/2015 Chronic rhinitis 08/31/2015 Generalized anxiety disorder 05/16/2015 Overview (11/01/2017): - pt reports episodes of impending doom, seen by psych recommends clonopin BID, will clarify pts need for ativan for N/V Backache 02/20/2015 Pseudarthrosis after fusion or arthrodesis 02/20 Cervicalgia 07/02/2014 Hodgkin's disease 01/16/2013 Convulsions 01/02/2013 Anxiety state 12/27/2012 Overview (03/09/2019): Overview: - pt reports episodes of impending doom, seen by psych recommends clonopin BID, will clarify pts need for ativan for N/V Alkaline phosphatase elevation 12/19/2012 Overview (03/09/2019): Overview: - trending down, near baseline - all other liver enzymes and bili wnl Pain 12/13/2012 Overview (11/01/2017): - Pain in back and shoulder treated with Oxycodone 5 Mg Q4 anf Oxycontin 20 mg am, 30 mg pm, well controlled Encounters Date Type Department Care Team Description 05/22/2024 9:55 AM CDT - 05/22/2024 11:59 PM CDT Hospital Encounter [facility] CAT SCAN [address] [place] [address] oDn Manuel MD Discharge Disposition: Home or Self Care 05/22/2024 8:00 AM CDT - 05/22/2024 9:54 AM CDT Hospital Encounter [facility] PFT [address] [place] [address] Don Manuel MD Discharge Disposition: Home or Self Care 05/22/2024 Travel 05/12/2024 3:10 PM CDT Office Visit [facility] - Dermatology [address] [place] [address] Jaun Mascorro MD History of basal cell carcinoma (BCC) (Primary Dx); Seborrheic keratosis; Neoplasm of uncertain behavior of skin; Lentigines; Donahue angioma; Inflamed seborrheic keratosis; Sebaceous hyperplasia 05/12/2024 Travel from Last 3 Months Immunizations Name Administration Dates Next Due Covid Moderna primary monovalent 12+ yr 0.5mL ,03/31/2021 FLU VACCINE TRI IIV3 SPLIT PF IM (FLUVIRIN) 04/02 INFLUENZA VACCINE, QUADR. (A FLURIA, FLUZONE QUADRIVALENT; 6MO+) (IIV4) 04/05/2019,04/02/2019 INFLUENZA VACCINE, QUADR. (F LUZONE; FLULAVAL; FLUARIX; AFLURIA QUADRIVALENT; 6MO+), 0.5 ML (IIV4) 04/05/2019 PNEUMOCOCCAL PPSV23 10/30/2015 PNEUMOCOCCAL PPV, HISTORIC VACCINE 08/24/2013 Pneumococcal Pcv13 Conj 07/08/2021 TDAP (7yrs+) 02/04/2023 iNFLUENZA VACCINE, RECOM-AREVALO, QUADR. (FLUBLOCK QUADRIVALENT; 18Y+) (RIV4) 07/08/2021 Family History Medical History Relation Name Comments None Known Brother CAD (Coronary Artery Disease) Father denise Cancer Father denise thyroid Heart Disease Father denise Hypertension Father denise CAD (Coronary Artery Disease) Mother hannah Diabetes Mother hannah Heart Disease Mother hannah Hypertension Mother hannah Relation Name Status Comments Brother Alive Father denise Alive Mother hannah Alive Social History Tobacco Use Types Packs/Day Years Used Date Smoking Tobacco: Former Cigarettes 1 14 1 985 - 11/30/1997 Smokeless Tobacco: Never Tobacco Cessation:Counseling Given: Not Answered Alcohol Use Standard Drinks/Week Comments Yes 0 (1 standard drink = 0.6 oz pur e alcohol) once a month Education Answer Date Recorded What is the highest level of school you have completed or the highest degree you have received? Associate degree: occupational, technical, or vocational program 07/15/2021 Sex and Gender Information Value Date Recorded Sex Assigned at Female 05/06/2024 9:07 AM CDT Gender Identity Female 05/06/2024 9:07 AM CDT Sexual Orientation Straight 05/06/2024 9: 07 AM CDT Last Filed Vital Signs Vital Sign Reading Time Taken Comments Blood Pressure 102/69 04/11/2024 3:41 PM CDT Pulse 103 04/11/2024 3:41 PM CDT Temperature 36.6 ??C (97.8 ??F) 06/09/2022 2:15 PM CS T Respiratory Rate 17 04/11/2024 3:41 PM CDT Oxygen Saturation 94% 04/11/2024 3:41 PM CDT Inhaled Oxygen Concentration - - Weight 83.5 kg (184 lb) 04/11/2024 3:41 PM CDT Height 157.5 cm (5' 2 ) 04/11/2024 3:41 PM CDT Body Mass Index 33.65 04/11/2024 3:41 PM CDT Plan of Treatment Health Maintenance Due Date Last Done Comments COLOGUARD (AGES 45-75) - COLON CA SCREENING 1968 COLON MONITORING 1968 COLONOSCOPY - COLON CA SCREENING 1968 CT COLONOGRAPHY - COLON CA SCREENING 1968 Colorectal Cancer Screening 1968 FIT - COLON CA SCREENING 1968 FLEX SIG - COLON CA SCREENING 1968 MEDICARE AWV ? 12 MONTHS 1968 Opioid Medication Agreement - Annual 1968 HEPATITIS B VACCINE (1 of 3 - 19+ 3-dose series) 11/23/1987 ZOSTER VACCINE (1 of 2) 11/23/1987 PAP with HPV 1998 Opioid Medication Urine Drug Screening 01/12/2020 01/11/2019, 11/24/2018, 08/21/2018, Additional history exists MAMMOGRAM 11/28/2020 11/28/2018 COVID-19 VACCINE (3 - Moderna risk series) 05/28/2021 04/30/2021, 03/31/2021 DEPRESSION SCREENING 08/02/2023 INFLUENZA VACCINE (#1) 2024 1, 04/05/2019, 04/05/2019, Additional history exists SCREENING FOR DIABETES 06/09/2025 2, 01/27/2022, 06/05/2021, Additional history exists DTAP/TDAP/TD VACCINES (2 - Td or Tdap) 02/04/2033 02/04/2023 PNEUMOCOCCAL VACCINE (4 of 4 - PPSV23 or PCV20) 2033 07/08/2021, 10/30/2015, 08/24/2013 HEPATITIS C SCREENING Completed 04/18/2017, 013 HIV SCREENING Completed 04/11/2024, 11/03/2012 HIB VACCINE Aged Out No longer eligi ble based on patient's age to complete this topic HPV VACCINE Aged Out No longer eligi ble based on patient's age to complete this topic MENINGOCOCCAL VACCINE Aged Out No gabriela karan eligible based on patient's age to complete this topic Procedures Procedure Name Priority Date/Time Associated Diagnosis Comments HOME O2 EVAL (DESATURATION SCREEN) Routine 05/22/2024 12:[address] of the chest SIX MINUTE WALK Routine 05/22/2024 12:[address] of the chest COMPLETE PFT W/WO BRONCHODILATOR Routine 05/22/2024 12:[address] of the chest CT CHEST WO CONT AND HIRES Routine 05/22/2024 10:[address] of the chest SC TANGNTL BX SKIN SINGLE LES Routine 05/12/2024 4:34 PM CDT Neoplasm of uncertain behavior of skin SC DESTRUCT BENIGN LESION, 1-14 Routine 05/12/2024 4:33 PM CDT Inflamed seborrheic keratosis DERMATOPATHOLOGY Routine 05/12/2024 12:0 0 AM CDT Neoplasm of uncertain behavior of skin HIV-1 HIV-2 ANTIBODY + HIV P24 AG PANEL Routine 04/11/2024 4:[address] of the chest COMPREHENSIVE METABOLIC PANEL STAT 06/09/2022 3:46 PM COSTUME DESIGNER Hodgkin lymphoma, unspecified Hodgkin lymphoma type, unspecified body region (HCC) URINE DRUG SCREEN IMMUNOASSAY STAT 01/11/2019 3:03 PM CDT MAMMO BILAT DIAGNOSTIC Routine 9 2:20 PM CDT Disorder of breast Breast lump HEPATITIS C AB SCREEN RFLX NAAT QUANT Timed 04/18/2017 3:51 AM CDT from Last 3 Months or Most Recently Relevant to Health Maintenance Results * AMBULATORY OXIMETRY (05/22/2024 12:11 PM CDT) Impressions Turner Hunter MD - 05/22/2024 12:[address] [facility] DEPARTMENT OF PULMONARY, CRITICAL CARE, AND SLEEP MEDICINE OXYGEN TITRATION STUDY Lakeisha Alejandra 05/22/2024 INTERPRETATION The test was performed on the treadmill at a speed of 1 mph at room air. ??The patient was able to complete 4 minutes with lowest SpO2 of 97%. Then the treadmill speed was increased to 2 mph, the patient's SpO2 dropped to 97% at minute 4 and oxygen saturation remained above 97% throughout the test. IMPRESSION 1. At the above level of activity the patient's oxygen saturation remained 97 % and above on room air. Dar Sheriff MD Pulmonary & Critical Care Fellow Division of Pulmonary, Critical Care, and Sleep Medicine [facility] I have personally reviewed and agree with the fellow's interpretation. MD Prieto Her Christopher R, MD - 05/22/2024 12:11 PM CDT Dar Sheriff MD ? 05/22/2024 ??9:26 PM Don Manuel MD RESPIRATORY THERAPY ORDERABLES * SIX MINUTE WALK (05/22/2024 12:10 PM CDT) Impressions Turner Hunter MD - 05/22/2024 12:10 PM CDT [facility] DEPARTMENT OF PULMONARY, CRITICAL CARE, AND SLEEP MEDICINE SIX MINUTE WALK TEST Lakeisha Michaelsrachael 05/22/2024 Interpretation: The patient walked for 6 minutes on room air and covered total distance of 346 meters. On the Alec scale at baseline, reported dyspnea was 3 and fatigue was 5. ??At the end of the study, the Alec reported dyspnea was 4 and fatigue was 6. ??There were ??additional symptoms such as Right hip discomfort 4 Alec Scale and 0.5 Alec scale light headedness were ??reported and oxygen saturation remained above 96% throughout the test. IMPRESSION: 1. Total 6 minute walk distance is 346 meters, which is above the lower limit of normal of 330 meters for this patient. 2. Compared to prior study on 03/28/2021, the patients 6 minute walk distance has improved to 346 meters from ??306 meters. Dar Sheriff MD Pulmonary and Critical Care Fellow [facility] Pager Number [phone] I have personally reviewed and agree with the fellow's interpretation. MD Prieto Her Christopher R, MD - 05/22/2024 12:10 PM CDT Dar Sheriff MD ? 05/22/2024 ??9:26 PM Don Manuel MD RESPIRATORY THERAPY ORDERABLES * COMPLETE PFT W/WO BRONCHODILATOR (05/22/2024 12:09 PM CDT) Impressions Turner Hunter MD - 05/22/2024 12:09 PM CDT [facility] DEPARTMENT OF PULMONARY, CRITICAL CARE, AND SLEEP MEDICINE PULMONARY FUNCTION TEST Please see technologist's comments mentioned in the report. INTERPRETATION: SPIROMETRY: ?FVC: normal. ?FEV1: normal. ?FEV1/FVC ratio is normal. BRONCHODILATOR RESPONSE: There is no significant response to bronchodilator therapy, however this does not mean the patient would not benefit from bronchodilator therapy. FLOW-VOLUME LOOPS: Inspection of the flow-volume loops shows normal flow-volume loops. LUNG VOLUMES: Lung volumes by body plethysmography show normal total lung volume and normal residual volume. DIFFUSION CAPACITY DLCO: Unadjusted for Hb and COHb is normal. DLCO: Corrected for Hb and COHb is not done as there is no recent Hgb available in the records. AIRWAY RESISTANCE The airway resistance is decreased and the specific conductance is normal. ARTERIAL BLOOD GAS ANALYSIS: Not performed. IMPRESSION: 1. Normal pulmonary function test without any obstructive or restrictive pattern and a normal gas exchange 3. No significant bronchodilator response, however this does not preclude the use of bronchodilators. 4. Compared with the previous test done on 05/28/2021, FVC has decreased from 3.2 to 3.13, FEV1 has remained the same and TLC has improved from 4.43 to 4.57 Dar Sheriff MD Pulmonary & Critical Care Fellow Division of Pulmonary, Critical Care, and Sleep Medicine [facility] I have personally reviewed and agree with the fellow's interpretation. Turner Hunter MD Narrative Turner Hunter MD - 05/22/2024 12:09 PM CDT Dar Sheriff MD ? 05/22/2024 ??9:27 PM Don Manuel MD RESPIRATORY THERAPY ORDERABLES * CT Chest Wo Cont And Hires (05/22/2024 10:02 AM CDT) Anatomical Region Laterality Modality Chest Computed Tomogra phy 05/22/2024 10:4 5 AM CDT Impressions 05/22/2024 7:55 PM CDT Impression: 1.Moderate air trapping concerning for small airway disease.. > Dictated by Hanna Tyson MD, MD (vice president and portfolio manager). I, Madhu Olivier MD have personally reviewed and interpreted this examination/study. > Interpreting Provider: Madhu Olivier MD on 05/22/2024 7:55 PM Narrative 05/22/2024 7:55 PM CDT PROCEDURE: ??CT CHEST WO CONT AND HIRES DATE/TIME OF EXAM: ??05/22/2024 10:02 AM CLINICAL INFORMATION: None relevant/not provided if blank. Indication: R93.89: Abnormal CT of the chest Additional History: COMPARISON: CT chest 05/28/2020. TECHNIQUE: CT of the chest was performed without contrast according to standard protocol. Then, utilizing a high-resolution algorithm, 1 mm noncontiguous axial images of the chest were obtained in inspiration and expiration. Findings: Evaluation of visceral and vascular structures is degraded due to lack of intravenous contrast administration. Lower Neck and Axillae: Normal. Lungs: No bronchial wall thickening or bronchiectasis is seen. No architectural distortion or honeycombing is visible. There is moderate air trapping on expiratory phase in the posterior bilateral lower lobes similar to prior. No pleural fluid or pneumothorax is present. Heart and Pericardium: The cardiac chambers are normal in size. No pericardial fluid or thickening is present. Mediastinum and Radha: No enlarged lymph nodes are present. Thoracic Vasculature: No vascular abnormality is present. Bones and Chest Wall: Bone windows demonstrate no suspicious lytic or blastic lesions. The visible osseous structures are intact. Postsurgical changes of previous posterior spinal fusion are visualized as well as chronic compression fracture of T6 vertebral body. Upper Abdomen: Calcification in the posterior gastric wall not seen previously. Numerous gallstones within the gallbladder without evidence of cholecystitis. The visible portions of the upper abdominal organs are otherwise normal. Procedure Note Madhu Olivier MD - 05/22/2024 PROCEDURE: CT CHEST WO CONT AND HIRES DATE/TIME OF EXAM: 05/22/2024 10:02 AM CLINICAL INFORMATION: None relevant/not provided if blank. Indication: R93.89: Abnormal CT of the chest Additional History: COMPARISON: CT chest 05/28/2020. TECHNIQUE: CT of the chest was performed without contrast according to standard protocol. Then, utilizing a high-resolution algorithm, 1 mm noncontiguous axial images of the chest were obtained in inspiration and expiration. Findings: Evaluation of visceral and vascular structures is degraded due to lackof intravenous contrast administration. Lower Neck and Axillae: Normal. Lungs: No bronchial wall thickening or bronchiectasis is seen. No architectural distortion or honeycombing is visible. There is moderate air trapping on expiratory phase in the posterior bilateral lower lobes similar toprior. No pleural fluid or pneumothorax is present. Heart and Pericardium: The cardiac chambers are normal in size. No pericardial fluid orthickening is present. Mediastinum and Radha: No enlarged lymph nodes are present. Thoracic Vasculature: No vascular abnormality is present. Bones and Chest Wall: Bone windows demonstrate no suspicious lytic or blastic lesions. The visible osseous structures are intact. Postsurgical changes of previous posterior spinal fusion are visualized as well as chronic compression fracture of T6 vertebral body. Upper Abdomen: Calcification in the posterior gastric wall not seen previously.Numerous gallstones within the gallbladder without evidence of cholecystitis. The visible portions of the upper abdominal organs are otherwise normal. Impression: 1.Moderate air trapping concerning for small airway disease.. > Dictated by Hanna Tyson MD, MD (vice president and portfolio manager). I, Madhu Olivier MD have personally reviewed and interpreted this examination/study. > Interpreting Provider: Madhu Olivier MD on 05/22/2024 7:55 PM Don Manuel MD CT ORDERABLES * SC TANGNTL BX SKIN SINGLE LES (05/12/2024 4:34 PM CDT) Narrative Jaun Mascorro MD - 05/12/2024 4:34 PM CDT Mera Vitale MD ? 05/12/2024 ??4:34 PM Risks, benefits and alternatives to shave biopsy were discussed with the patient. Verbal consent was obtained. Location: left frontal scalp Diagnosis: Neoplasm of Uncertain Behavior Skin prep: Alcohol Anesthesia: 1% lidocaine with epinephrine Hemostasis: Aluminum chloride Dressing and wound care discussed. Specimen(s) placed in a patient labeled container and sent to dermatopathology. Mera Vitale MD [facility] Dermatology Resident Jaun Mascorro MD PROCEDURE/MINOR SURG ICAL ORDERABLES * SC DESTRUCT BENIGN LESION, 1-14 (05/12/2024 4:33 PM CDT) Narrative Jaun Mascorro MD - 05/12/2024 4:33 PM CDT Mera Vitale MD ? 05/12/2024 ??4:33 PM Diagnosis and treatment options discussed. Cryotherapy (Liquid Nitrogen) to 3 ISK x 10 seconds each. Number of cycles: 1. Wound care reviewed. Mera Vitale MD [facility] Dermatology Resident Jaun Mascorro MD PROCEDURE/MINOR SURG ICAL ORDERABLES * DERMATOPATHOLOGY (05/12/2024 12:00 AM CDT) Case Report Dermatopathology Report ? Case: [id number] ? Authorizing Provider: ??Jaun Mascorro MD ? Collected: ? 05/12/2024 12:00 AM ? Ordering Location: ? [facility] - ??Received: ?05/15/2024 06:42 AM ? Dermatology ? Pathologist: ? Mildred Mike MD ? Specimen: ?Skin, left frontal scalp ? 4 4:29 PM CDT DERMATOPATHOLOGY LABORATORY Final Diagnosis Specimen A. SKIN, left frontal scalp: SEBORRHEIC KERATOSIS, IRRITATED (L82.0) 4 4:29 PM CDT DERMATOPATHOLOGY LABORATORY Clinical History Nevus vs SK r/o BCC 4:29 PM CDT DERMATOPATHOLOGY LABORATORY Gross Description Specimen A: Received is one formalin filled container labeled with the patient's name and designated left frontal scalp. The specimen consists of a shave biopsy measuring [id number] mm. Jar 0. 4:29 PM CDT DERMATOPATHOLOGY LABORATORY Microscopic Description Specimen A. SKIN, left frontal scalp: There is acanthosis consisting of fairly uniform squamous cells with eosinophilic cytoplasm and squamous eddies. 4:29 PM CDT DERMATOPATHOLOGY LABORATORY Disclaimer An external and internal positive and negative controls are appropriate for the histochemical, immunohistochemical and immunofluorescence stain(s) in this case (if any), except where stated explicitly. The performance characteristics of the stain(s) cited in this report were developed and its performance characteristic determined by the Dermatopathology Laboratory at [facility], directed by Dr. Buddy Fisher. These tests need not be, and therefore are not, approved by the [place] Food and Drug Administration. The tests are used for clinical purposes. Billing Codes Specimen Charges Stain Charges 83239 1 4 4:29 PM CDT DERMATOPATHOLOGY LABORATORY Embedded Images 4:29 PM CDT DERMATOPATHOLOGY LABORATORY Pathology/Cytolog y TISSUE SPECIMEN FROM SKIN / Unknown 05/12/2024 05/15/2024 6:42 AM CDT Jaun Mascorro MD LAB - PATHOLOGY/CYTO LOGY ORDERABLES DERMATOPATHOLOGY LABORATORY [facility] - Department of Dermatology [facility] [address] [facility] [address], [address] [place] [address], [facility] [phone] * HIV-1 HIV-2 ANTIBODY + HIV P24 AG PANEL (04/11/2024 4:52 PM CDT) HIV Antigen/Antibod y 1 & 2 Non-reacti ve Non-react teena 04/11/2024 6:04 PM CDT [facility] Comment:No Laboratory eviden ce of HIV infection. Blood BLOOD SPECIMEN / Unknown Lab Venipuncture / Unknown 04/11/2024 4:52 PM CDT 04/11/2024 5:32 PM CDT Don Manuel MD LAB - CHEMISTRY CHRISTOPHER DE LA GARZA [facility] [address] [place] [address], [facility] [phone] * (ABNORMAL) COMPREHENSIVE METABOLIC PANEL (06/09/2022 3:46 PM COSTUME DESIGNER) Pathologist [facility] BUN 12 7 - 26 mg/dL 06/09/2022 4:29 PM [facility] Creatinine 0.66 0.56 - 0.96 mg/dL 06/09/2022 4:29 PM [facility] Sodium 140 136 - 145 mmol/L 06/09/2022 4:29 PM [facility] Potassium 3.7 3.5 - 4.5 mmol/L 06/09/2022 4:29 PM [facility] Chloride 111(H) 98 - 107 mmol/L 06/09/2022 4:29 PM [facility] CO2 21(L) 22 - 29 mmol/L 06/09/2022 4:29 PM [facility] Glucose 115 70 - 115 mg/dL 06/09/2022 4:29 PM [facility] Calcium 9.9 8.4 - 10.2 mg/dL 06/09/2022 4:29 PM [facility] Protein Total 7.7 6.0 - 8.3 g/dL 06/09/2022 4:29 PM [facility] Albumin 4.0 3.4 - 5.0 g/dL 06/09/2022 4:29 PM [facility] Bilirubin Total 0.7 0.2 - 1.2 mg/dL 06/09/2022 4:29 PM [facility] Alkaline Phosphatase 116 40 - 150 U/L 06/09/2022 4:29 PM [facility] ALT 16 5 - 55 U/L 06/09/2022 4:29 PM [facility] AST 16 5 - 34 U/L 06/09/2022 4:29 PM [facility] Anion Gap 12 8 - 18 06/09/2022 4:29 PM [facility] BUN/Creatinine Ratio 18 7 - 23 06/09/2022 4:29 PM [facility] Osmolality Calculated 291 270 - 300 mOsm/kg 06/09/2022 4:29 PM [facility] Albumin/Globulin Ratio 1.1 1.1 - 2.3 06/09/2022 4:29 PM [facility] eGFR by CKD-EPI >90 >=90 mL/min/1.7 3 m2 06/09/2022 4:29 PM [facility] Blood BLOOD SPECIMEN / Unknown Lab Venipuncture / Unknown 06/09/2022 3:46 PM COSTUME DESIGNER 06/09/2022 4:02 PM COSTUME DESIGNER Ashish Peralta MD LAB - CHEMISTRY CHRISOTPHER DE LA GARZA [facility] Organization Address [facility] Co de Phone Number [address] [phone] [phone] * (ABNORMAL) DRUG SCREEN TOX URINE PANEL (01/11/2019 3:03 PM CDT) [facility] Amphetamines Screen Urine Negative Negative : < 1000 ng/mL 01/11/2019 3:33 PM [facility] Barbiturates Screen Urine Negative Negative : < 200 ng/mL 01/11/2019 3:33 PM [facility] Benzodiazepine Screen Urine Negative Negative : < 200 ng/mL 01/11/2019 3:33 PM CDT [facility] Opiates Urine Negative Negative : < 300 ng/mL 01/11/2019 3:33 PM [facility] Cocaine Metabolites Urine Negative Negative : < 300 ng/mL 01/11/2019 3:33 PM [facility] Phencyclidine Screen Urine Negative Negative : < 25 ng/ml 01/11/2019 3:33 PM [facility] Cannabinoids Screen Urine Positive(A) Negative : <50 ng/mL 01/11/2019 3:33 PM [facility] Comment: Positive urine cannabinoids (THC) screening results should be confirmed by another generally accepted non-immunological method such as gas chromatography or mass spectrometry. ? Methadone Screen Urine Negative Negative : < 300 ng/mL 01/11/2019 3:33 PM [facility] Urine URINE / Unknown Collection / Unknown 01/11/2019 3:03 PM CDT 01/11/2019 3:10 PM CDT [facility] - 01/11/2019 3:33 PM CDT The Urine Toxicology Screening Panel does not screen for Propoxyphene, Meprobamate, Carisoprodol, Trazodone, weri-fce-dynjbeu medications and/or volatiles (Acetone, Isopropanol, Methanol or Ethylene Glycol). Ethanol, Salicylate, Acetaminophen, Tricyclic Antidepressants and several therapeutic drugs may be individually assayed in serum or plasma specimen. Toxicology testing by the [facility] is an aid to medical diagnosis and treatment of patients. No documented chain of custody was maintained. Results are intended to be used for clinical purposes only. ? Kain Wellington MD LAB - URINE [place] [address], [facility] [phone] * MAMMO BILAT DIAGNOSTIC (11/28/2018 2:20 PM CDT) Anatomical Region Laterality Modality Breast Bilateral Mammography 11/28/2018 2:21 PM CDT Impressions 11/28/2018 2:23 PM CDT IMPRESSION: No mammographic or sonographic evidence of malignancy. BI-RADS category 1, negative mammogram. RECOMMENDATION: ??Routine annual screening mammograms are recommended. This report was electronically signed by LEOBARDO BOYD M.D. ??on 11/28/2018 2:23 PM . Narrative 11/28/2018 2:23 PM CDT Bilateral diagnostic mammography. Targeted left breast ultrasound. Date: ?? 11/28/2018 Comparison: No comparisons are available, prior mammograms are over 10 years old. History: The patient is a 48-year-old female with history of Hodgkin's lymphoma who has noticed palpable lumps within the inferior left breast. Technique: ??The breasts were imaged in multiple views using 3D tomosynthesis with reconstructed/synthetic images and CAD analysis. Targeted ultrasound was also performed. Findings: Mammogram: No suspicious mass, grouped microcalcification, or architectural distortion is seen within either breast. Normal-appearing small intramammary lymph nodes are noted within the upper outer breasts bilaterally. Breast parenchymal density: ??The breasts are almost entirely fatty. Ultrasound: Targeted high-resolution sonography and digital palpation was performed by livestock haulier and physician throughout the inferior left breast. Multiple mobile lumps identified in this region on palpation correspond to fat lobules. No suspicious mass or dominant cyst is seen. This examination was subjected to CAD analysis. The results of this examination were discussed with the patient by Dr. Boyd. Castillo Max MD MAMMO ORDERABLES * HEPATITIS C AB SCREEN RFLX PCR QUANT (04/18/2017 3:51 AM CDT) Hepatitis C Antibody Non-react teena Non-reac tive [facility] Comment: Hepatitis C Antibody screen indicates no serologic evidence of past or current infection with Hepatitis C Virus. Patients with unexplained liver disease who are immunocompromised or suspected of having acute Hepatitis C infection may benefit from Nucleic Acid Test (EDGAR) for Hepatitis C Viral RNA to confirm Hepatitis C status. BLOOD SPECIMEN / Unknown 04/18/2017 3:51 AM CDT 04/18/2017 4:16 AM CDT Yanelis Alas MD LAB - CHEMISTRY CHRISTOPHER DE LA GARZA [address] [phone] from Last 3 Months or Most Recently Relevant to Health Maintenance Advance Directives * Full Code (Latest Code Status on File) Date Activated Date Inactivated Comments 01/11/2019 7:38 PM 01/12/2019 3:03 PM Care Teams Industrial Safety Engineer Relationship Specialty Start Date End Date Blake Lindsey MD [address] [place] [address] PCP - General 05/20/16
--- OUTSIDE RECORDS SUMMARY | 2024-07-29 17:18 | XMS_ITS | Referral Summary ---
Author Organization [facility] Health Address [address] [facility] [address] [place] [address] Care Team Providers Care Waste Treatment Operator Name Role Phone Blake Lindsey MD Primary Care Provider [phone] Source Comments [facility],non-owned Affiliates and Associated Physician Practices is amultiple site organization consisting of ambulatory clinics and hospital sitesin [place], [place], [place] and [place]. This disclosure is being madepursuant to the Care Everywhere program and may not contain all information available regarding this patient. Last updated 18.[facility] Encounters Date Type Department Care Team Description 05/22/2024 Travel 05/22/2024 8:00 AM CDT - 05/22/2024 9:54 AM CDT Hospital Encounter [facility] PFT [address] [place] [address] Don Manuel MD Discharge Disposition: Home or Self Care 05/22/2024 9:55 AM CDT - 05/22/2024 11:59 PM CDT Hospital Encounter [facility] CAT SCAN [address] [place] [address] Don Manuel MD Discharge Disposition: Home or Self Care 05/12/2024 Travel 05/12/2024 3:10 PM CDT Office Visit [facility] - Dermatology [address] [place] [address], [place] [id number] Jaun Mascorro MD History of basal cell carcinoma (BCC) (Primary Dx); Seborrheic keratosis; Neoplasm of uncertain behavior of skin; Lentigines; Donahue angioma; Inflamed seborrheic keratosis; Sebaceous hyperplasia from Last 3 Months Allergies Active Allergy Reactions Criticality Noted Date [...] Migraine Headache 30 tablet 01/12/2019 Active NYSTOP 951832 UNIT/GM powder Apply 1 Dose to affected [...] 08/22/2020 Assessment & Plan (08/22/2020 10:50 AM MANAGER TAX): Left sided parotid nodule - previously noted [...] 0 Assessment & Plan (07/11/2020 2:03 PM MANAGER TAX): Advised patient to use heat to the [...] 07/11/2020 Assessment & Plan (08/22/2020 10:46 AM MANAGER TAX): Continue with previous recommendations. Patient states she has been compliant. Follow up as needed Assessment & Plan (07/11/2020 1:57 PM MANAGER TAX): Patient states she has a history of [...] mg am, 30 mg pm, well controlled Immunizations Name Administration Dates Next Due Covid [...] RECOM-AREVALO, QUADR. (FLUBLOCK QUADRIVALENT; 18Y+) (RIV4) 07/08/2021 Social History Tobacco Use Types Packs/Day Years [...] Mass Index 33.65 04/11/2024 3:41 PM CDT Functional Status Functional Status Response Date of Assess ment Is person deaf or have serious hearing difficult y? No 01/11/2019 Is person blind or have serious difficulty seein g? Yes 01/11/2019 Does person have serious dif ficulty walking/climbing stairs? Yes 01/11/2019 Does person have difficulty dressing/bathing? No 01/11/2019 Does person have difficulty doing errands alone? No 01/11/2019 Cognitive Status Response Date of Assessm ent Does person have difficulty concentrating/remembering/making decisions? No 01/11/2019 Plan of Treatment Not on file Procedures Procedure Name Priority Date/Time Associated Diagnosis [...] AM CDT Abnormal CT of the chest IA TANGNTL BX SKIN SINGLE LES Routine 05/12/2024 4:34 PM CDT Neoplasm of uncertain behavior of skin IA DESTRUCT BENIGN LESION, 1-14 Routine 05/12/2024 4:33 PM CDT Inflamed seborrheic keratosis DERMATOPATHOLOGY Routine 05/12/2024 12:0 0 AM CDT Neoplasm of uncertain behavior of skin HIV-1 HIV-2 ANTIBODY + HIV P24 AG PANEL Routine 04/11/2024 4:[address] of the chest COMPREHENSIVE METABOLIC PANEL STAT 06/09/2022 3:46 PM MANAGER TAX Hodgkin lymphoma, unspecified Hodgkin lymphoma type, unspecified [...] Hunter MD - 05/22/2024 12:11 PM CDT [facility] DEPARTMENT OF PULMONARY, CRITICAL CARE, AND SLEEP MEDICINE OXYGEN TITRATION STUDY Lakeisha Loving Justyn 05/22/2024 INTERPRETATION The test was performed on [...] of Pulmonary, Critical Care, and Sleep Medicine [facility] I have personally reviewed and agree with the fellow's interpretation. Turner Hunter MD Narrative Turner Hunter MD - 05/22/2024 12:11 PM CDT Dar Sheriff MD ? 05/22/2024 ??9:26 PM Don Manuel MD RESPIRATORY THERAPY ORDERABLES * SIX MINUTE WALK (05/22/2024 12:10 PM CDT) Impressions Turner Hunter MD - 05/22/2024 12:10 PM CDT [facility] DEPARTMENT OF PULMONARY, CRITICAL CARE, AND SLEEP MEDICINE SIX MINUTE WALK TEST Lakeisha Loving Justyn 05/22/2024 Interpretation: The patient walked for 6 [...] Sheriff MD Pulmonary and Critical Care Fellow [facility] Pager Number [phone] I have personally reviewed and agree with the fellow's interpretation. Turner Hunter MD Narrative Turner Hunter MD - 05/22/2024 12:10 PM CDT Dar Sheriff MD ? 05/22/2024 ??9:26 PM Don Manuel MD RESPIRATORY THERAPY ORDERABLES * COMPLETE PFT W/WO BRONCHODILATOR (05/22/2024 12:09 PM CDT) Impressions Turner Hunter MD - 05/22/2024 12:09 PM CDT [facility] DEPARTMENT OF PULMONARY, CRITICAL CARE, AND [...] of Pulmonary, Critical Care, and Sleep Medicine [facility] I have personally reviewed and agree with [...] > Dictated by Hanna Tyson MD, MD (market president). I, Madhu Olivier MD have personally reviewed [...] MD - 05/22/2024 PROCEDURE: CT CHEST WO AIYANA AND HIRDARRELL DATE/TIME OF EXAM: 05/22/2024 10:02 AM CLINICAL [...] > Dictated by Hanna Tyson MD, MD (market president). I, Madhu Olivier MD have personally reviewed and interpreted this examination/study. > Interpreting Provider: Madhu Olivier MD on 05/22/2024 7:[address] MD [address] ORDERABLES * IA TANGNTL BX SKIN SINGLE LES (05/12/2024 4:34 [...] and sent to dermatopathology. Mera Vitale MD [facility] Dermatology Resident Jaun Mascorro MD PROCEDURE/MINOR SURG ICAL ORDERABLES * IA DESTRUCT BENIGN LESION, 1-14 (05/12/2024 4:33 PM CDT) Narrative Jaun Mascorro MD - 05/12/2024 4:33 PM CDT Mera Vitale MD ? 05/12/2024 ??4:33 PM Diagnosis and treatment options discussed. Cryotherapy (Liquid Nitrogen) to 3 ISK x 10 seconds each. Number of cycles: 1. Wound care reviewed. Mera Vitale MD [facility] Dermatology Resident Jaun Mascorro MD PROCEDURE/MINOR SURG ICAL ORDERABLES * DERMATOPATHOLOGY (05/12/2024 12:00 AM CDT) Case Report Dermatopathology Report ? Case: [id number] ? Authorizing Provider: ??Jaun Mascorro MD ? Collected: ? 05/12/2024 12:00 AM ? Ordering Location: ? [facility] - ??Received: ?05/15/2024 06:42 AM ? Dermatology ? Pathologist: ? Mildred Mike MD ? Specimen: ?Skin, left frontal scalp ? 4 4:29 PM T DERMATOPATHOLOGY LABORATORY Final Diagnosis Specimen A. SKIN, left frontal scalp: SEBORRHEIC KERATOSIS, IRRITATED (L82.0) 4 4:29 PM T DERMATOPATHOLOGY LABORATORY Clinical History Nevus vs SK r/o BCC 4 4:29 PM T DERMATOPATHOLOGY LABORATORY Gross Description Specimen A: Received is one formalin filled container labeled with the patient's name and designated left frontal scalp. The specimen consists of a shave biopsy measuring [id number] mm. Jar 0. 4 4:29 PM [facility] DERMATOPATHOLOGY LABORATORY Microscopic Description Specimen A. SKIN, left frontal scalp: There is acanthosis consisting of fairly uniform squamous cells with eosinophilic cytoplasm and squamous eddies. 4 4:29 PM T DERMATOPATHOLOGY LABORATORY Disclaimer An external and internal positive and negative controls are appropriate for the histochemical, immunohistochemical and immunofluorescence stain(s) in this case (if any), except where stated explicitly. The performance characteristics of the stain(s) cited in this report were developed and its performance characteristic determined by the Dermatopathology Laboratory at [facility], directed by Dr. Buddy Fisher. These tests need not be, and therefore are not, approved by the [place] Food and Drug Administration. The tests are used for clinical purposes. Billing Codes Specimen Charges Stain Charges 46654 1 4 4:29 PM CDT DERMATOPATHOLOGY LABORATORY Embedded Images 4 4:29 PM CDT DERMATOPATHOLOGY LABORATORY Pathology/Cytolog y TISSUE SPECIMEN FROM SKIN / Unknown 05/12/2024 05/15/2024 6:42 AM CDT Jaun Mascorro MD LAB - PATHOLOGY/CYTO LOGY ORDERABLES DERMATOPATHOLOGY LABORATORY [facility] - Department of Dermatology [facility] [address] [facility] [place] [address], [facility] [phone] * HIV-1 HIV-2 ANTIBODY + HIV P24 AG PANEL (04/11/2024 4:52 PM CDT) Pathologist [facility] HIV Antigen/Antibod y 1 & 2 Non-reacti ve Non-react teena 04/11/2024 6:04 PM CDT [facility] Comment:No Laboratory eviden ce of HIV infection. Blood BLOOD SPECIMEN / Unknown Lab Venipuncture / Unknown 04/11/2024 4:52 PM CDT 04/11/2024 5:32 PM CDT Don Manuel MD LAB - CHEMISTRY ORDE HOLLI Performing Organization Address City/[facility]/ZIP Co de Phone Number [facility] [address] [place] [address], [facility] [phone] * (ABNORMAL) COMPREHENSIVE METABOLIC PANEL (06/09/2022 3:46 PM MANAGER TAX) Pathologist [facility] BUN 12 7 - 26 mg/dL 06/09/2022 4:29 PM MANAGER TAX [facility] Creatinine 0.66 0.56 - 0.96 mg/dL 06/09/2022 4:29 PM [facility] Sodium 140 136 - 145 mmol/L 06/09/2022 4:29 PM [facility] Potassium 3.7 3.5 - 4.5 mmol/L 06/09/2022 4:29 PM [facility] Chloride 111(H) 98 - 107 mmol/L 06/09/2022 4:29 PM [facility] CO2 21(L) 22 - 29 mmol/L 06/09/2022 4:29 PM [facility] Glucose 115 70 - 115 mg/dL 06/09/2022 4:29 PM [facility] Calcium 9.9 8.4 - 10.2 mg/dL 06/09/2022 4:29 PM [facility] Protein Total 7.7 6.0 - 8.3 g/dL 06/09/2022 4:29 PM [facility] Albumin 4.0 3.4 - 5.0 g/dL 06/09/2022 4:29 PM [facility] Bilirubin Total 0.7 0.2 - 1.2 mg/dL 06/09/2022 4:29 PM [facility] Alkaline Phosphatase 116 40 - 150 U/L 06/09/2022 4:29 PM [facility] ALT 16 5 - 55 U/L 06/09/2022 4:29 PM [facility] AST 16 5 - 34 U/L 06/09/2022 4:29 PM [facility] Anion Gap 12 8 - 18 06/09/2022 4:29 PM [facility] BUN/Creatinine Ratio 18 7 - 23 06/09/2022 4:29 PM [facility] Osmolality Calculated 291 270 - 300 mOsm/kg 06/09/2022 4:29 PM [facility] Albumin/Globulin Ratio 1.1 1.1 - 2.3 06/09/2022 4:29 PM [facility] eGFR by CKD-EPI >90 >=90 mL/min/1.7 3 m2 06/09/2022 4:29 PM [facility] Blood BLOOD SPECIMEN / Unknown Lab Venipuncture / Unknown 06/09/2022 3:46 PM MANAGER TAX 06/09/2022 4:02 PM [facility] Ashish Peralta MD LAB - CHEMISTRY ORDE HOLLI [facility] Organization Address City/State/ZIP Co de Phone Number [facility] [address] [place] [address], [facility] [phone] * (ABNORMAL) DRUG SCREEN TOX URINE PANEL (01/11/2019 3:03 PM CDT) [facility] Amphetamines Screen Urine Negative Negative : < 1000 ng/mL 01/11/2019 3:33 PM [facility] Barbiturates Screen Urine Negative Negative : < 200 ng/mL 01/11/2019 3:33 PM [facility] Benzodiazepine Screen Urine Negative Negative : < 200 ng/mL 01/11/2019 3:33 PM [facility] Opiates Urine Negative Negative : < 300 ng/mL 01/11/2019 3:33 PM [facility] Cocaine Metabolites Urine Negative Negative : < 300 ng/mL 01/11/2019 3:33 PM [facility] Phencyclidine Screen Urine Negative Negative : < 25 ng/ml 01/11/2019 3:33 PM [facility] Cannabinoids Screen Urine Positive(A) Negative : <50 ng/mL 01/11/2019 3:33 PM [facility] Comment: Positive urine cannabinoids (THC) screening results should be confirmed by another generally accepted non-immunological method such as gas chromatography or mass spectrometry. ? Methadone Screen Urine Negative Negative : < 300 ng/mL 01/11/2019 3:33 PM [facility] Urine URINE / Unknown Collection / Unknown 01/11/2019 3:03 PM CDT 01/11/2019 3:10 PM T [facility] - 01/11/2019 3:33 PM [facility] The Urine Toxicology Screening Panel does not screen for Propoxyphene, Meprobamate, Carisoprodol, Trazodone, slna-uyi-ehapnun medications and/or volatiles (Acetone, Isopropanol, Methanol or Ethylene Glycol). Ethanol, Salicylate, Acetaminophen, Tricyclic Antidepressants and several therapeutic drugs may be individually assayed in serum or plasma specimen. Toxicology testing by the [facility] is an aid to medical diagnosis and treatment of patients. No documented chain of custody was maintained. Results are intended to be used for clinical purposes only. ? Kain Wellington MD LAB - URINE CHEMISTR Y ORDERABLES [address] [phone] * MAMMO BILAT DIAGNOSTIC (11/28/2018 2:20 PM [...] sonography and digital palpation was performed by ammunition assembly laborer and physician throughout the inferior left breast. [...] Hepatitis C Antibody Non-react teena Non-reac tive [facility] Comment: Hepatitis C Antibody screen indicates no [...] LAB - CHEMISTRY CHRISTOPHER DE LA GARZA [address] [phone] from Last 3 Months or Most Recently Relevant to Health Maintenance Advance Directives * Full Code (Latest Code Status on File) Date Activated Date Inactivated Comments 01/11/2019 7:38 PM 01/12/2019 3:03 PM Care Teams Waste Treatment Operator Relationship Specialty Start Date End Date Blake Lindsey MD [address] [place] [address] PCP - General 05/20/16
--- OUTSIDE RECORDS SUMMARY | 2024-07-29 17:20 | XMS_ITS | Encounter Summary ---
Author Organization [facility] Health Address [address] [place] [address] Care Team Providers Care Formal Wear Rental Clerk Name Role Phone Blake Lindsey MD Primary Care Provider [phone] Encounter Details Date Type Department Care Team (Latest Contact Info) Description 01/27/2022 10:22 AM CDT - 01/27/2022 11:59 PM CDT Hospital Encounter [facility] [address] [facility] [place] [address] Discharge Disposition: Home or Self Care Social History Tobacco Use Types Packs/Day Years Used Date Smoking Tobacco: Former Cigarettes 1 14 1 985 - 11/30/1997 Smokeless Tobacco: Never Alcohol Use Standard Drinks/Week Comments Yes 0 [...] Orientation Straight 05/06/2024 9: 07 AM CDT documented as of this encounter Functional Status Functional Status Response Date of [...] person have difficulty concentrating/remembering/making decisions? No 01/11/2019 documented as of this encounter Medications at Time of Discharge Medication Sig Dispensed Refills Start Date End Date albuterol (PROVENTIL;VENTOLIN) (2.5 MG/3ML) 0.083% nebulizer solutionIndications:B ronchospastic Disease INHALE 3 ML BY NEBULIZATION 3 TIMES DAILY Reasons: Disease Involving Spasms of the Bronchus 1 vial 01/12/2019 ascorbic acid (VITAMIN C) 500 MG tabletIndications:Iro n deficiency anemia, unspecified iron deficiency anemia type Take 1 (one) tablet by mouth once daily Take 1 tablet at the same time as your ferrous sulfate (iron tablet). 90 tablet 3 08/14/2021 atorvastatin (LIPITOR) 10 MG tablet Take 1 (one) tablet by mouth at bedtime 01/16/2021 baclofen (LIORESAL) 20 MG tablet Take 1 (one) tablet by mouth as directed 08/20/2020 buPROPion XL 24hr (WELLBUTRIN-XL) 150 MG tablet Take 1 (one) tablet by mouth once daily 12/16/2020 cetirizine (ZYRTEC) 10 MG tablet Take 1 (one) tablet by mouth once daily as needed 04/17/2020 escitalopram (LEXAPRO) 20 MG tablet Take 1 (one) tablet by mouth once daily 07/19/2020 furosemide (LASIX) 20 MG tabletIndications:Bernardo ma Take 1 tablet by mouth once daily Reasons: Edema 30 tablet 01/12/2019 gabapentin (NEURONTIN) 300 MG capsule Take 1 (one) capsule by mouth 3 times daily 06/04/2020 lubiprostone (Amitiza) 24 MCG capsule Take 1 (one) capsule by mouth 2 times daily with morning and evening meal montelukast (SINGULAIR) 10 MG tablet Take 1 (one) tablet by mouth once daily 06/21/2020 mupirocin (BACTROBAN) 2 % ointment Apply to affected area 3 times daily To bilateral nares 22 g 1 03/17/2021 NYSTOP [id number] UNIT/GM powder Apply 1 Dose to affected area as directed 1 03/06/2019 omeprazole (PRILOSEC) 20 MG capsule Take 1 (one) capsule by mouth once daily 08/09/2020 ondansetron (ZOFRAN) 4 MG tablet Take 1 (one) tablet by mouth as needed for Nausea/Vomiting 04/17/2020 potassium chloride ER (KLOR-CON) 20 MEQ tablet Take 1 (one) tablet by mouth once daily 0 04/05/2019 prazosin (MINIPRESS) 1 MG capsule Take 1 (one) capsule by mouth as directed 02/25/2021 QUEtiapine (SEROQUEL) 100 MG tabletIndications:Ede or Depressive Disorder Take 1 tablet by mouth at bedtime Reasons: Major Depressive Disorder 30 tablet 01/12/2019 spironolactone (ALDACTONE) 25 MG tablet Take 1 (one) tablet by mouth once daily 2 03/09/2019 SUMAtriptan (IMITREX) 50 MG tabletIndications:Jatin litzy Take 1 tablet by mouth once as needed for Migraine Maximum daily dose: 200mg/24 hours Reasons: Migraine Headache 30 tablet 01/12/2019 traZODone (DESYREL) 50 MG tablet Take 1 (one) tablet by mouth nightly as needed for Insomnia 06/26/2020 Cholecalciferol (VITAMIN D) 50 MCG (2000 UT) capsule Take 1 (one) capsule by mouth once daily 90 capsule 3 08/14/2021 07/07/2022 ferrous sulfate 325 (65 FE) MG tabletIndications:Iro n deficiency anemia, unspecified iron deficiency anemia type Take 1 (one) tablet by mouth once daily Take one tablet at the same time as your Vitamin C (ascorbic acid). 90 tablet 3 08/14/2021 04/08/2022 fluticasone propionate (FLONASE) 50 MCG/ACT nasal spray [place] 2 sprays into each nostril once daily 16 g 5 08/08/2020 08/06/2022 meloxicam (MOBIC) 15 MG tablet Take 15 mg by mouth once daily 03/09/2021 08/06/2022 QUEtiapine (SEROQUEL) 200 MG tablet Take 150 mg by mouth at bedtime 07/04/2021 08/06/2022 TRELEGY ELLIPTA 100-62.5-25 MCG/INH Inhale 1 (one) puff by mouth every 6 hours as needed 06/13/2020 04/11/2024 XTAMPZA ER 9 MG capsule Take 9 mg by mouth 2 times daily 06/26/2020 08/05/2022 documented as of this encounter Plan of Treatment Not on file documented as of this encounter Procedures Procedure Name Priority Date/Time Associated Diagnosis Comments CBC W AUTO DIFFERENTIAL STAT 01/27/2022 10:27 AM CDT Basal cell carcinoma (BCC) of scalp COMPREHENSIVE METABOLIC PANEL STAT 01/27/2022 10:27 AM CDT Basal cell carcinoma (BCC) of scalp documented in this encounter Results * (ABNORMAL) COMPREHENSIVE METABOLIC PANEL (01/27/2022 10:27 AM CDT) BUN 10 7 - 26 mg/dL 01/27/2022 11:04 AM [facility] Creatinine 0.69 0.56 - 0.96 mg/dL 01/27/2022 11:04 AM [facility] Sodium 145 136 - 145 mmol/L 01/27/2022 11:04 AM [facility] Potassium 3.3(L) 3.5 - 4.5 mmol/L 01/27/2022 11:04 AM [facility] Chloride 110(H) 98 - 107 mmol/L 01/27/2022 11:04 AM [facility] CO2 24 22 - 29 mmol/L 01/27/2022 11:04 AM [facility] Glucose 131(H) 70 - 115 mg/dL 01/27/2022 11:04 AM [facility] Calcium 9.8 8.4 - 10.2 mg/dL 01/27/2022 11:04 AM [facility] Protein Total 7.3 6.0 - 8.3 g/dL 01/27/2022 11:04 AM [facility] Albumin 3.8 3.4 - 5.0 g/dL 01/27/2022 11:04 AM [facility] Bilirubin Total 0.5 0.2 - 1.2 mg/dL 01/27/2022 11:04 AM [facility] Alkaline Phosphatase 84 40 - 150 U/L 01/27/2022 11:04 AM [facility] ALT 13 5 - 55 U/L 01/27/2022 11:04 AM [facility] AST 11 5 - 34 U/L 01/27/2022 11:04 AM [facility] Anion Gap 14 8 - 18 01/27/2022 11:04 AM [facility] BUN/Creatinine Ratio 14 7 - 23 01/27/2022 11:04 AM [facility] Osmolality Calculated 301(H) 270 - 300 mOsm/kg 01/27/2022 11:04 AM [facility] Albumin/Globulin Ratio 1.1 1.1 - 2.3 01/27/2022 11:04 AM [facility] eGFR by CKD-EPI >90 >=90 mL/min/1.7 3 m2 01/27/2022 11:04 AM [facility] Blood BLOOD SPECIMEN / Unknown Lab Venipuncture / Unknown 01/27/2022 10:27 AM CDT 01/27/2022 10:35 AM [facility] Miguelinaote Chanelle [facility] - RUBBER COMPOUNDER SUPERVISOR RY ORDERABLES [facility] [address] [place] [id number], [facility] [phone] * (ABNORMAL) CBC WITH DIFFERENTIAL (01/27/2022 10:27 AM T) WBC 7.1 3.5 - 10.5 10? 3 /uL 01/27/2022 10:41 AM [facility] RBC 4.46 3.80 - 5.20 10? 6 /uL 01/27/2022 10:41 AM [facility] Hemoglobin 14.3 12.0 - 15.6 g/dL 01/27/2022 10:41 AM [facility] Hematocrit 42.2 35.0 - 45.0 % 01/27/2022 10:41 AM [facility] MCV 94.6 80.7 - 98.3 fL 01/27/2022 10:41 AM [facility] MCH 32.1 26.7 - 34.0 pg 01/27/2022 10:41 AM [facility] MCHC 33.9 30.8 - 35.9 g/dL 01/27/2022 10:41 AM [facility] Platelet Count 209 150 - 400 10? 3 /uL 01/27/2022 10:41 AM [facility] RDW-SD 43.3 36.0 - 50.0 fL 01/27/2022 10:41 AM [facility] RDW-CV 12.5 11.2 - 14.8 % 01/27/2022 10:41 AM [facility] MPV 9.0(L) 9.4 - 12.9 fL 01/27/2022 10:41 AM [facility] nRBC Absolute 0.00 0 10? 3 /uL 01/27/2022 10:41 AM [facility] nRBC Auto 0.0 0 /100 WBC 01/27/2022 10:41 AM [facility] Neutrophils % 65.9 35.0 - 70.0 % 01/27/2022 10:41 AM [facility] Lymphocytes % 23.2 20.0 - 43.0 % 01/27/2022 10:41 AM [facility] Monocytes % 6.3 5.0 - 13.0 % 01/27/2022 10:41 AM [facility] Eosinophils % 3.7 0.0 - 6.0 % 01/27/2022 10:41 AM [facility] Basophil % 0.6 0.0 - 2.0 % 01/27/2022 10:41 AM [facility] Neutrophils Absolute 4.70 1.60 - 7.00 10? 3 /uL 01/27/2022 10:41 AM [facility] Lymphocyte Absolute 1.65 1.10 - 3.90 10? 3 /uL 01/27/2022 10:41 AM [facility] Monocytes Absolute 0.45 0.26 - 1.07 10? 3 /uL 01/27/2022 10:41 AM CDT [facility] Eosinophils Absolute 0.26 0.00 - 0.47 10? 3 /uL 01/27/2022 10:41 AM CDT [facility] Basophils Absolute 0.04 0.00 - 0.08 10? 3 /uL 01/27/2022 10:41 AM T [facility] Immature Granulocytes % 0.3 0.0 - 1.0 % 01/27/2022 10:41 AM T [facility] Immature Granulocytes Absolute 0.02 01/27/2022 10:41 AM T [facility] Blood BLOOD SPECIMEN / Unknown Lab Venipuncture / Unknown 01/27/2022 10:27 AM CDT 01/27/2022 10:35 AM CDT [place] Chanelle [facility] - HEMATOL OGY ORDERABLES Performing Organization Address City/State/[facility] Co de Phone Number [facility] [address] [place] [id number] [phone] documented in this encounter Visit Diagnoses Diagnosis Basal cell carcinoma (BCC) of scalp documented in this encounter Care Teams Formal Wear Rental Clerk Relationship Specialty Start Date End Date Blake Lindsey MD [address] [place] [address] PCP - General 05/20/16 documented as of this encounter
--- OUTSIDE RECORDS SUMMARY | 2024-07-29 17:20 | XMS_ITS | Encounter Summary ---
Author Organization [facility] Health Address [address] [place] [address] Care Team Providers Care Fisher Trot Line Name Role Phone Blake Lindsey MD Primary Care Provider [phone] Encounter Details Date Type Department Care Team (Late st Contact Info) Description 01/27/2022 Orders Only [facility] [address] [place] [address] Abhilash Roca MD [address] [address] Parotid nodule ; Hodgkin lymphoma, unspecified Hodgkin lymphoma type, unspecified body region (HCC) Social History Tobacco Use Types Packs/Day Years [...] No 01/11/2019 documented as of this encounter Plan of Treatment Not on file documented as of this encounter Visit Diagnoses Diagnosis Parotid nodule- Primary Other specified diseases of the salivary glands Hodgkin lymphoma, unspecified Hodgkin lymphoma type, unspecified body region (HCC) documented in this encounter Care Teams Fisher Trot Line Relationship Specialty Start Date End Date Blake Lindsey MD [address] [place] [address] PCP - General 05/20/16 documented as of this encounter
--- OUTSIDE RECORDS SUMMARY | 2024-07-29 17:20 | XMS_ITS | Encounter Summary ---
Author Organization [facility] Health Address [address] [facility] [place] [address] Care Team Providers Care Bridge Engineer Name Role Phone Blake Lindsey MD Primary Care Provider [phone] Encounter Details Date Type Department Care Team (Late st Contact Info) Description 06/08/2022 Orders [facility] [address] [place] [address] Ashish Peralta MD [address] [facility] [place] [address] Hodgkin lymphoma, unspecified Hodgkin lymphoma type, unspecified [...] on file documented as of this encounter Results * (ABNORMAL) COMPREHENSIVE METABOLIC PANEL (06/09/2022 3:46 PM [facility]) BUN 12 7 - 26 mg/dL 06/09/2022 4:29 PM [facility] Creatinine 0.66 0.56 - 0.96 mg/dL 06/09/2022 4:29 PM [facility] Sodium 140 136 - 145 mmol/L 06/09/2022 4:29 PM [facility] Potassium 3.7 3.5 - 4.5 mmol/L 06/09/2022 4:29 PM [facility] Chloride 111(H) 98 - 107 mmol/L 06/09/2022 4:29 PM [facility] CO2 21(L) 22 - 29 mmol/L 06/09/2022 4:29 PM [facility] Glucose 115 70 - 115 mg/dL 06/09/2022 4:29 PM [facility] Calcium 9.9 8.4 - 10.2 mg/dL 06/09/2022 4:29 PM [facility] Protein Total 7.7 6.0 - 8.3 g/dL 06/09/2022 4:29 PM [facility] Albumin 4.0 3.4 - 5.0 g/dL 06/09/2022 4:29 PM [facility] Bilirubin Total 0.7 0.2 - 1.2 mg/dL 06/09/2022 4:29 PM [facility] Alkaline Phosphatase 116 40 - 150 U/L 06/09/2022 4:29 PM [facility] ALT 16 5 - 55 U/L 06/09/2022 4:29 PM [facility] AST 16 5 - 34 U/L 06/09/2022 4:29 PM [facility] Anion Gap 12 8 - 18 06/09/2022 4:29 PM [facility] BUN/Creatinine Ratio 18 7 - 23 06/09/2022 4:29 PM [facility] Osmolality Calculated 291 270 - 300 mOsm/kg 06/09/2022 4:29 PM [facility] Albumin/Globulin Ratio 1.1 1.1 - 2.3 06/09/2022 4:29 PM [facility] eGFR by CKD-EPI >90 >=90 mL/min/1.7 3 m2 06/09/2022 4:29 PM [facility] Blood BLOOD SPECIMEN / Unknown Lab Venipuncture / Unknown 06/09/2022 3:46 PM [facility] 06/09/2022 4:02 PM [facility] Ashish Peralta MD LAB - CHEMISTRY ORDE HOLLI [facility] Organization Address City/State/ZIP Co de Phone Number [facility] [address] [place] [id number] [phone] * (ABNORMAL) CBC WITH DIFFERENTIAL (06/09/2022 3:46 PM [facility]) WBC 9.8 3.5 - 10.5 10? 3 /uL 06/09/2022 4:08 PM [facility] RBC 4.93 3.80 - 5.20 10? 6 /uL 06/09/2022 4:08 PM [facility] Hemoglobin 15.6 12.0 - 15.6 g/dL 06/09/2022 4:08 PM [facility] Hematocrit 45.9(H) 35.0 - 45.0 % 06/09/2022 4:08 PM [facility] MCV 93.1 80.7 - 98.3 fL 06/09/2022 4:08 PM [facility] MCH 31.6 26.7 - 34.0 pg 06/09/2022 4:08 PM [facility] MCHC 34.0 30.8 - 35.9 g/dL 06/09/2022 4:08 PM [facility] RDW-SD 42.9 36.0 - 50.0 fL 06/09/2022 4:08 PM [facility] RDW-CV 12.5 11.2 - 14.8 % 06/09/2022 4:08 PM [facility] Platelet Count 225 150 - 400 10? 3 /uL 06/09/2022 4:08 PM [facility] MPV 8.6(L) 9.4 - 12.9 fL 06/09/2022 4:08 PM [facility] nRBC Absolute 0.00 0 10? 3 /uL 06/09/2022 4:08 PM [facility] nRBC Auto 0.0 0 /100 WBC 06/09/2022 4:08 PM [facility] Neutrophils % 65.2 35.0 - 70.0 % 06/09/2022 4:08 PM [facility] Lymphocytes % 23.4 20.0 - 43.0 % 06/09/2022 4:08 PM [facility] Monocytes % 7.2 5.0 - 13.0 % 06/09/2022 4:08 PM [facility] Eosinophils % 3.2 0.0 - 6.0 % 06/09/2022 4:08 PM [facility] Basophil % 0.6 0.0 - 2.0 % 06/09/2022 4:08 PM [facility] Neutrophils Absolute 6.37 1.60 - 7.00 10? 3 /uL 06/09/2022 4:08 PM [facility] Lymphocyte Absolute 2.29 1.10 - 3.90 10? 3 /uL 06/09/2022 4:08 PM [facility] Monocytes Absolute 0.70 0.26 - 1.07 10? 3 /uL 06/09/2022 4:08 PM [facility] Eosinophils Absolute 0.31 0.00 - 0.47 10? 3 /uL 06/09/2022 4:08 PM [facility] Basophils Absolute 0.06 0.00 - 0.08 10? 3 /uL 06/09/2022 4:08 PM [facility] Immature Granulocytes % 0.4 0.0 - 1.0 % 06/09/2022 4:08 PM [facility] Immature Granulocytes Absolute 0.04 06/09/2022 4:08 PM [facility] Blood BLOOD SPECIMEN / Unknown Lab Venipuncture / Unknown 06/09/2022 3:46 PM [facility] 06/09/2022 4:02 PM [facility] Ashish Peralta MD LAB - HEMATOLOGY ORD ERABLES [facility] [address] [place] [address], [facility] [phone] documented in this encounter Visit Diagnoses Diagnosis Hodgkin lymphoma, unspecified Hodgkin lymphoma type, unspecified body region (HCC)- Primary documented in this encounter Care Teams Bridge Engineer Relationship Specialty Start Date End Date Blake Lindsey MD [address] [place] [address] PCP - General 05/20/16 documented as of this encounter
--- OUTSIDE RECORDS SUMMARY | 2024-07-29 17:20 | XMS_ITS | Encounter Summary ---
Author Organization [facility] Health Address [address] [facility] [place] [address] Care Team Providers Care Pharmacy Sales Assistant Name Role Phone Blake Lindsey MD Primary Care Provider [phone] Encounter Details Date Type Department Care Team (Latest Contact Info) Description 06/18/2022 Travel Social History Tobacco Use Types Packs/Day Years [...] documented as of this encounter Visit Diagnoses Not on filedocumented in this encounter Care Teams Pharmacy Sales Assistant Relationship Specialty Start Date End Date Blake Lindsey MD [address] [place] [address] PCP - General 05/20/16 documented as of this encounter
--- OUTSIDE RECORDS SUMMARY | 2024-07-29 17:20 | XMS_ITS | Encounter Summary ---
Author Organization [facility] Address [address] [place] [address] Care Team Providers Care Head Of Advertising Name Role Phone Blake Lindsey MD Primary Care Provider [phone] Reason for Visit * Reason Comments Mass Encounter Details Date Type Department Care Team (Late st Contact Info) Description 12/22/2023 10:15 AM CDT Office Visit [facility] - ENT [address] [place] [address] [phone] Shant Solomon MD [address] [place] [phone] Parotid nodule (Primary Dx) Social History Tobacco Use Types Packs/Day Years [...] AM CDT documented as of this encounter Last Filed Vital Signs Vital Sign Reading Time Taken Comments Blood Pressure 103/76 12/22/2023 10:31 AM CDT Pulse 112 12/22/2023 10:31 AM CDT Temperature - - Respiratory Rate - - Oxygen Saturation - - Inhaled Oxygen Concentration - - Weight 79.4 kg (175 lb) 12/22/2023 10:31 AM CDT Height 157.5 cm (5' 2 ) 12/22/2023 10:31 AM CDT Body Mass Index 32.01 12/22/2023 10:31 AM CDT documented in this encounter Functional Status Functional Status Response [...] No 01/11/2019 documented as of this encounter Patient Instructions * Patient Instructions* Tayt Hua MA - 12/22/2023 10:32 AM CDT Thank you for visiting [facility] Otolaryngology - Head & Neck Surgery. We appreciate your confidence in allowing us to participate in your health care. You may receive a survey about your visit with us today. Making our patients happy isn???t just happy talk; it???s ourmission. Please tell us if we made the right impression on you- and how we can serve you better. Please SAVE the information below, it will assist you when it???s time for you to contact us. To MAKE - CHANGE - CANCEL an office appointment If you become ill, need to be seen before your next scheduled appointment, or need to cancel or reschedule an appointment, please call our office at [phone] Wednesday through Wednesday from 8:00 am to4:30 pm. You can also request a routine appointment through your [employer] [facility] account. Prescription Refills Contact your pharmacy to request all refills. The pharmacy will need to fax the request to us at . Please allow a minimum of 48-72 hours for your prescription to be completed. Medical Emergency / After Hours Contact Information If you have a medical emergency, please call 911 or go to the nearest emergency room. For urgent medical calls, which cannot wait until the office opens, please call the medical exchange at and ask the gluing machine operator to page the ENT physician blood bank laboratory professional. *Caller ID blocking service will need to be turned off for your call to be returned. We also specialize in Hearing Aids, Allergy testing, swallowing disorders, voice problems, cancer diagnosis, and so much more. Visit our website at [email or web address] for information about our practice and an interactive health encyclopedia. documented in this encounter Progress Notes * Carmelo Aguiar MD - 12/22/2023 10:51 AM CDT CC: Chief Complaint Patient presents with Mass Referred by Dr. Peralta HPI: Lakeisha Alejandra is a 53 year old female PMH significant for asthma, COPD, HLD, HECTOR, Hodgkin's lymphoma, TMJ who was previously seen for periparotid/parotid node who presents today for a new mass shecan feel on the left cheek. She was last seen 2 years ago, at which point she decided to proceed with conservative management for the lymph node near/in her parotid. She reports last week she noticeda new lymph node that was swollen. The patients parotid node has been painful over the last 2 yearsand she would like relief from this. She had it biopsied and was told it was benign, but it continues to cause her pain. She is also concerned there could be cancer given her history of lymphoma. Medical History: Past Medical History: Past Medical History: Diagnosis Date Abnormal levels of other serum enzymes 12/22/2012 - trending down, near baseline - all other liver enzymes and bili wnl Acromioclavicular joint arthritis 09/09/2016 Acute respiratory failure due to COVID-19 (HCC) 01/2021 Alkaline phosphatase elevation 12/19/2012 Overview: - trending down, near baseline - all other liver enzymes and bili wnl Anemia 05/16/2015 Anxiety state 12/27/2012 Overview: - pt reports episodes of impending doom, seen by psych recommends clonopin BID, will clarify pts need for ativan for N/V Arthrodesis status 11/14/2014 Backache 02/20/2015 Bilateral arm weakness 03/09/2019 Blood clot in vein 01/13/2013 Carpal tunnel syndrome of right wrist 09/22/2016 Central sleep apnea 2015 ? r/t spinal surgery Cervicalgia 07/02/2014 Chronic coughing 07/18/2021 Chronic fatigue 07/18/2021 Chronic rhinitis 08/31/2015 Chronic, continuous use of opioids 07/18/2021 Claustrophobia 07/15/2021 Convulsions ([facility]) 01/02/2013 COPD (chronic obstructive pulmonary disease) ([facility]) COVID-19 01/2021 hospitalized February 07-, on oxygen for about 8 weeks Daytime sleepiness 07/18/2021 Depression 07/15/2021 Elevated MCV 07/18/2021 Enuresis 07/15/2021 Epistaxis, recurrent 08/31/2015 Full dentures 07/18/2021 Generalized anxiety disorder 05/16/2015 - pt reports episodes of impending doom, seen by psych recommends clonopin BID, will clarify pts need for ativan for N/V GERD (gastroesophageal reflux disease) 07/15/2021 High cholesterol History of penicillin allergy 08/31/2015 Hodgkin's disease ([facility]) 01/16/2013 Hodgkins lymphoma ([facility]) 2013 Inadequate sleep hygiene 07/18/2021 Infectious disease 08/30/2015 Leg cramps 07/18/2021 Mass of breast 12/13/2012 - Patient on exam has palpable LN in Left breast; has been evaluated by Dr Chavez. - Repeat U/S breast 11/10- not concerning for malignancy- no intervention needed, patient to undergo repeat mammogram in one year. Migraine Mild persistent asthma, uncomplicated ([facility]) 06/22/2017 Nausea 04/18/2017 Nausea with vomiting 12/29/2012 Poorly controlled with marinol 2.5 BID, ativan .5 AC PRN, and palonosetron Well controlled with scopolamine patch Night sweats 07/18/2021 Nightmares 07/18/2021 Non-seasonal allergic rhinitis 07/11/2020 Other symptoms and signs involving the musculoskeletal system 09/22/2016 Pain 12/13/2012 - Pain in back and shoulder treated with Oxycodone 5 Mg Q4 anf Oxycontin 20 mg am, 30 mg pm, well controlled Pain in left knee 09/18/2015 Pain in left shoulder 11/06/2015 Pain in right knee 07/11/2015 Parotid nodule 08/22/2020 Primary osteoarthritis of left knee 09/09/2016 Primary osteoarthritis of right knee 09/09/2016 Primary osteoarthritis of shoulder 09/09/2016 Pseudarthrosis after fusion or arthrodesis 02/20/2015 PTSD (post-traumatic stress disorder) 07/15/2021 family and cancer Recurrent sinus infections 07/15/2021 Restless legs syndrome (RLS) 07/18/2021 Right otitis media with effusion 07/18/2020 Severe episode of recurrent major depressive disorder, without psychotic features (HCC) 01/11/2019 Sleep apnea Sleep drunkenness 07/18/2021 Sleep talking 07/18/2021 Suicidal ideation 07/15/2021 Thrombocytopenia (HCC) 02/16/2013 TMJ (temporomandibular joint disorder) 07/11/2020 Unrefreshed by sleep 07/18/2021 Unspecified disorder of synovium and tendon, left shoulder 09/09/2016 Wears glasses 07/18/2021 Past Surgical History: Past Surgical History: Procedure Laterality Date Back Surgery 2014 fell and broke rods-another fusion BIOPSY 2020 neck lymph HX SPINAL FUSION 2012 Knee Arthroscopy Left 2008 Knee Arthroscopy Right 2008 LUTHER TOOTH EXTRACTION 2012 all Medications: Current Outpatient Medications Medication Sig albuterol (PROVENTIL;VENTOLIN) (2.5 MG/3ML) 0.083% nebulizer solution INHALE 3 ML BY NEBULIZATION 3TIMES DAILY Reasons: Disease Involving Spasms of the Bronchus (Patient taking differently: Inhale 2.5 (two and one-half) mg by mouth 3 times daily as needed for Shortness of Breath or Wheezing INHALE3 ML BY NEBULIZATION 3 TIMES DAILY Reasons: Disease Involving Spasms of the Bronchus) ascorbic acid (VITAMIN C) 500 MG tablet Take 1 (one) tablet by mouth once daily Take 1 tablet at the same time as your ferrous sulfate (iron tablet). atorvastatin (LIPITOR) 10 MG tablet Take 1 (one) tablet by mouth at bedtime baclofen (LIORESAL) 20 MG tablet Take 1 (one) tablet by mouth as directed buPROPion XL 24hr (WELLBUTRIN-XL) 150 MG tablet Take 1 (one) tablet by mouth once daily cetirizine (ZYRTEC) 10 MG tablet Take 1 (one) tablet by mouth once daily as needed escitalopram (LEXAPRO) 20 MG tablet Take 1 (one) tablet by mouth once daily (Patient not taking: Reported on 12/22/2023) FeroSul 325 (65 Fe) MG tablet TAKE 1 TABLET BY MOUTH ONCE DAILY, TAKE AT TGHE SAME TIME YOUR VITAMIN TABLET (Patient not taking: Reported on 12/22/2023) furosemide (LASIX) 20 MG tablet Take 1 tablet by mouth once daily Reasons: Edema gabapentin (NEURONTIN) 300 MG capsule Take 1 (one) capsule by mouth 3 times daily lubiprostone (Amitiza) 24 MCG capsule Take 1 (one) capsule by mouth 2 times daily with morning and evening meal montelukast (SINGULAIR) 10 MG tablet Take 1 (one) tablet by mouth once daily Movantik 25 MG tablet mupirocin (BACTROBAN) 2 % ointment Apply to affected area 3 times daily To bilateral nares nitrofurantoin monohyd macro crystals (Macrobid) 100 MG capsule Take 1 (one) capsule by mouth 2 times daily with morning and evening meal (Patient not taking: Reported on 12/22/2023) Nurtec 75 MG tablet Take 75 mg by mouth as directed NYSTOP [id number] UNIT/GM powder Apply 1 Dose to affected area as directed omeprazole (PRILOSEC) 20 MG capsule Take 1 (one) capsule by mouth once daily ondansetron (ZOFRAN) 4 MG tablet Take 1 (one) tablet by mouth as needed for Nausea/Vomiting ondansetron, disintegrating, (Zofran ODT) 4 MG tablet Take 1 (one) tablet by mouth every 8 hours asneeded (Patient not taking: Reported on 12/22/2023) phentermine (Adipex-P) 37.5 MG tablet Take 1 (one) tablet by mouth once daily potassium chloride ER (KLOR-CON) 20 MEQ tablet Take 1 (one) tablet by mouth once daily prazosin (MINIPRESS) 1 MG capsule Take 1 (one) capsule by mouth as directed predniSONE (Deltasone) 10 MG tablet Take 1 (one) tablet by mouth once daily (Patient not taking: Reported on 12/22/2023) QUEtiapine (SEROQUEL) 100 MG tablet Take 1 tablet by mouth at bedtime Reasons: Major Depressive Disorder QUEtiapine (SEROquel) 50 MG tablet Take 1 (one) tablet by mouth at bedtime silver sulfADIAZINE (Silvadene) 1 % cream Apply to affected area once daily (Patient not taking: Reported on 12/22/2023) spironolactone (ALDACTONE) 25 MG tablet Take 1 (one) tablet by mouth once daily SUMAtriptan (IMITREX) 50 MG tablet Take 1 tablet by mouth once as needed for Migraine Maximum dailydose: 200mg/24 hours Reasons: Migraine Headache traZODone (Desyrel) 100 MG tablet Take 1 (one) tablet by mouth nightly as needed traZODone (DESYREL) 50 MG tablet Take 1 (one) tablet by mouth nightly as needed for Insomnia (Patient not taking: Reported on 12/22/2023) TRELEGY ELLIPTA 100-62.5-25 MCG/INH Inhale 1 (one) puff by mouth every 6 hours as needed Vitamin D3 (Cholecalciferol) 50 MCG (2000 UT) capsule TAKE 1 CAPSULE BY MOUTH EVERY DAY Xtampza ER 13.5 MG capsule Take 1 (one) capsule by mouth every 12 hours No current facility-administered medications for this visit. Allergies: Allergies Allergen Reactions Amoxicillin Rash Penicillins Rash Codeine Other Passes out, Passes out Epinephrine Other When injected in mouth for dental procedures, makes extremities go numb Patient metabolizes medication quickly Family History: Negative for easy bruising/bleeding, problems with anesthesia, or head/neck cancer. Past Social History: Ms. Alejandra is unaccompanied. 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 Tobacco: Smoking: <10 pack-years (on and off for 10 years), currently 0 PPD (quit in 1997). No other tobacco products Past/current alcohol use is social. Review of Systems: All review of systems negative, except for as per HPI. Exam: Vitals: 12/22/23 1031 BP: 103/76 Pulse: (!) 112 Weight: 79.4 kg (175 lb) Height: 1.575 m (5' 2 ) General: Awake and alert in no apparent distress breathing comfortably Face: No scars, lesions or masses visible or palpable Ears: Right Pinna normal, EAC normal Left Pinna normal, EAC normal Nose: External nose without lesions. Dried crusting and blood bilaterally, mucosa intact, septum deviated, bilateral inferior turbinate hypertrophy. Oral Cavity/Oropharynx: Lips without lesions. Tongue is mobile, palate elevates symmetrically. The buccal mucosa, palate, gingiva were examined and no lesions seen and no masses palpable Neck: Small, firm nodules palpable in the left parotid. The most tender area is in the tail of the left parotid with surrounding soft tissue swelling. Thyroid is low in the neck without palpable abnormalities. The salivary glands are without palpable masses. Voice: Strong, no stridor present Neurologic: Cranial nerves III-XII grossly intact Bedside Ultrasound: Several periparotid and intraparotid lymph nodes that appear stable when compared to prior imaging. Imaging: CT Neck personally reviewed: Stable appearance of the 2 separate hyperdense/enhancing lesions in the superficial lobe of left parotid gland compared to prior scan. Pathology: 11/04/20 - Lymph node, left parotid, US-guided FNA: - Neoplasm: Benign (see comment). Lymph node, left level 2B 'deep left cervical', US-guided FNA: - Mixed hematopoietic elements with some atypical forms (see comment). Assessment/Plan: 1. Left intraparotid and periparotid nodes: These nodes have been biopsied before which appear to be benign, but she continues to have ongoing pain from them. Though unlikely, definitive pathology would requie excision of these nodes. We discussed treatment optiosn including observation, repeat imaging, repeat FNA, or proceeding with surgery. She elected to proceed with surgery. We will plan for her to undergo superficial parotidectomy in the OR. The risks, benefits, and alternatives were discussed with the patient and she elected to proceed with surgery. All questions were answered. 2. Septal perforation: Patient is relatively asymptomatic from this. She is not interested in undergoing any additional treatment for this. We will have her continue her nasal regimen of nasal salineirrigations and keeping the nose moist. FU with Dr. Solomon in OR Carmelo Aguiar MD Otolaryngology-Head and Neck Surgery 12/22/23 Associated attestation - Shant Solomon MD - 12/23/2023 5:54 AM CDT Attending Physician Supervisory Note I personally interviewed and examined the patient and agree with the Resident above. In addition I note: 2 left parotid nodules in the setting of prior hodgkin's lymphoma. The superior lesion has been present and tender for years and stable on imaging including CT from 2020 and 2022 and beside US today.She presents today due to more tenders at a bilobed inferior lesion also within the left parotid. She has had FNA of the superior lesion which was consistent with benign lymph node. Overall the suspic ion for malignancy or neoplasm from these lesions is low but given there symptomatic nature we discussed repeat biopsy vs definitive excision which would involved a left parotidectomy. She is interested in surgical excision. We reviewed the rationale, expectations and risks of parotid surgery including but not limited to facial nerve weakness, numbness, scaring, delayed wound healing, salivary fistula, gustatory sweating, first bite syndrome, and need for additional treatment. All of her questions were answered and sheis in agreement to proceeding. Shant Solomon MD documented in this encounter Plan of Treatment Not on file documented as of this encounter Visit Diagnoses Diagnosis Parotid nodule- Primary Other specified diseases of the salivary glands documented in this encounter Care Teams Head Of Advertising Relationship Specialty Start Date End Date Blake Lindsey MD [address] [place] [address] PCP - General 05/20/16 documented as of this encounter
--- OUTSIDE RECORDS SUMMARY | 2024-07-29 17:20 | XMS_ITS | Encounter Summary ---
Author Organization [facility] Address [address] [place] [address] Care Team Providers Care Supervisor Jewelry Department Name Role Phone Blake Lindsey MD Primary Care Provider [phone] Reason for Visit * Reason Onset Date Comments Question 12/21/2023 Encounter Details Date Type Department Care Team (Late st Contact Info) Description 12/21/2023 Telephone [facility] - ENT [address] [place] [address] [phone] Shant Solomon MD [address] [place] [phone] Question Social History Tobacco Use Types Packs/Day Years [...] No 01/11/2019 documented as of this encounter Miscellaneous Notes * Telephone Encounter - Stephanie Gonzalez, RN - 12/21/2023 11:10 AM CDT Returned patient's call. She is concerned regarding a new, very tender bump just under my jaw boneon the left side that she would like evaluated. She states this is new, and began this past or Wednesday not the intraparotid node that she has been assessed for in the past. Patient requesting office visit. Scheduled for tomorrow Wednesday12/22/2023. FAREED Zamorano, RN * Telephone Encounter - Leann Leos - 12/21/2023 10:43 AM CDT The patient left a message that she thinks she has another lump in her neck. She was last seen 07/2022. documented in this encounter Plan of Treatment Not on file documented as of this encounter Visit Diagnoses Not on filedocumented in this encounter Care Teams Supervisor Jewelry Department Relationship Specialty Start Date End Date Blake Lindsey MD [address] [place] [address] PCP - General 05/20/16 documented as of this encounter
--- OUTSIDE RECORDS SUMMARY | 2024-07-29 17:20 | XMS_ITS | Encounter Summary ---
Author Organization [facility] Health Address [address] [place] [address] Care Team Providers Care Insulation Sprayer Name Role Phone Blake Lindsey MD Primary Care Provider [phone] Reason for Visit * Reason Onset Date Comments Lower Extremity Problem Rt, F/U Pain Hip 08/05/2022 Encounter Details Date Type Department Care Team (Late st Contact Info) Description 08/05/2022 10:50 AM ANALYTICAL SCIENTIST Office Visit [facility] - Orthopedics [address] [place] [address], [place] [id number] Wai Lowry MD [address] [place] [address] [place] [address] Trochanteric bursitis of right hip (Primary Dx) Social History Tobacco Use Types [...] this encounter Patient Instructions * Patient Instructions* Wai Lowry MD - 08/05/2022 10:59 AM ANALYTICAL SCIENTIST Images from the original note were not included. Adult and Pediatric Sports Medicine Lakeisha Alejandra 08/05/2022 Thank you for coming in to see us today for your hip. This is a school/work excuse note for today. We recommend that you try the following for your injury: icing, tylenol, anti-inflammatory medications, activity modification, physical therapy exercises, corticosteroid injections, and corticosteroid injection given in clinic today Please contact us at to make an appointment if your symptoms are not improving, or if something about your condition significantly changes. *Please fill out the Press Ganey survey that will be sent to you.* [facility] Orthopaedic office contact information: [facility] [address], First Floor, [place] [address] [facility] Outpatient Operating Room: [facility] [place] [address] [facility] [address] [place], [place] [address], [address], [place] [address] [facility] [address] [place] [address] [facility] [address] [place] [address], [place], [place] [address] Please do not hesitate to contact me with questions regarding her or any other patient in the future. Our clinical nurse, Heather Roper, can be reached at and at [email or web address]. Sincerely, Wai Lowry MD Team Physician for the [email or web address] YTICAL SCIENTIST documented in this encounter Progress Notes * Wai Lowry MD - 08/05/2022 10:54 AM CST Images from the original note were not included. Wai Lowry MD [facility] Orthopaedic Sports Medicine Adult and Pediatric Date of Clinic Visit: 08/05/[address] Blake Lindsey MD ; Today we had the pleasure of seeing Lakeisha Alejandra in Orthopaedic Sports Medicine Clinic for re-evaluation of her right hip injury. Lakeisha Alejandra is a 51 year old female who has had right hip pain for two years after an incidentin November 2020 when she felt a pop in her right hip. Currently has pain on the lateral aspect of her hip and cannot lay on her right side. The symptoms are activity-related and improved with rest. The symptoms limit their activities of daily living. No fevers, chills, numbness, paresthesias or gross motor weakness. They have tried icing, tylenol, anti- inflammatory medications, activity modification,corticosteroid injections and narcotics from her pain management doctor for their symptoms. Injection at last clinic visit last year provided 3 months of relief. She has not been able to do PT due tonot having a car but now has transportation. Handedness: right-handed Pain Score: 08/05/22 1039 PainSc: Seven PainLoc: Hip SANE Score (0-100): SANE Score 11/16/2018 Left Shoulder Score 40 Patient-Reported Satisfaction 08/05/2022 Current state satisfactory? No Prior treatment? Yes - non-surgical treatment Function since treatment Much Worse Currently taking narcotics? Yes PROMIS Pain Interference 08/05/2022 PROMIS PI Score 60 (mild) PROMIS Physical Function 08/05/2022 PROMIS PF Score 37 (moderate dysfunction) Medications Current Outpatient Medications on File Prior to Visit Medication Sig Dispense Refill ??? albuterol (PROVENTIL;VENTOLIN) (2.5 MG/3ML) 0.083% nebulizer solution INHALE 3 ML BY NEBULIZATION 3 TIMES DAILY Reasons: Disease Involving Spasms of the Bronchus (Patient taking differently: Inhale 2.5 (two and one-half) mg by mouth 3 times daily as needed for Shortness of Breath or Wheezing INHALE 3 ML BY NEBULIZATION 3 TIMES DAILY Reasons: Disease Involving Spasms of the Bronchus) 1 vial 0 ??? ascorbic acid (VITAMIN C) 500 MG tablet Take 1 (one) tablet by mouth once daily Take 1 tablet at the same time as your ferrous sulfate (iron tablet). 90 tablet 3 ??? atorvastatin (LIPITOR) 10 MG tablet Take 10 mg by mouth at bedtime ??? baclofen (LIORESAL) 20 MG tablet Take 20 mg by mouth as directed ??? buPROPion XL 24hr (WELLBUTRIN-XL) 150 MG tablet Take 150 mg by mouth once daily ??? cetirizine (ZYRTEC) 10 MG tablet Take 10 mg by mouth once daily as needed ??? escitalopram (LEXAPRO) 20 MG tablet Take 20 mg by mouth once daily ??? FeroSul 325 (65 Fe) MG tablet TAKE 1 TABLET BY MOUTH ONCE DAILY, TAKE AT TGHE SAME TIME YOURVITAMIN TABLET 90 tablet 3 ??? fluticasone propionate (FLONASE) 50 MCG/ACT nasal spray [place] 2 sprays into each nostril once daily 16 g 5 ??? furosemide (LASIX) 20 MG tablet Take 1 tablet by mouth once daily Reasons: Edema 30 tablet 0 ??? gabapentin (NEURONTIN) 300 MG capsule Take 300 mg by mouth 3 times daily ??? lubiprostone (Amitiza) 24 MCG capsule Take 24 mcg by mouth 2 times daily with morning and evening meal ??? meloxicam (MOBIC) 15 MG tablet Take 15 mg by mouth once daily (Patient not taking: Reported on 07/08/2022) ??? montelukast (SINGULAIR) 10 MG tablet Take 10 mg by mouth once daily ??? mupirocin (BACTROBAN) 2 % ointment Apply to affected area 3 times daily To bilateral nares (Patient not taking: Reported on 08/26/2021) 22 g 1 ??? Nurtec 75 MG tablet ??? NYSTOP 181266 UNIT/GM powder Apply 1 Dose to affected area as directed 1 ??? omeprazole (PRILOSEC) 20 MG capsule Take 20 mg by mouth once daily ??? ondansetron (ZOFRAN) 4 MG tablet Take 4 mg by mouth as needed for Nausea/Vomiting (Patient not taking: Reported on 07/08/2022) ??? potassium chloride ER (KLOR-CON) 20 MEQ tablet Take 20 mEq by mouth once daily 0 ??? prazosin (MINIPRESS) 1 MG capsule Take 1 mg by mouth as directed ??? QUEtiapine (SEROQUEL) 100 MG tablet Take 1 tablet by mouth at bedtime Reasons: Major DepressiveDisorder 30 tablet 0 ??? QUEtiapine (SEROQUEL) 200 MG tablet Take 150 mg by mouth at bedtime (Patient not taking: Reported on 07/08/2022) ??? QUEtiapine (SEROquel) 50 MG tablet TAKE 1 TABLET BY MOUTH EVERY NIGHT AT BEDTIME WITH 100MG TABLET ??? spironolactone (ALDACTONE) 25 MG tablet Take 1 tablet by mouth once daily 2 ??? SUMAtriptan (IMITREX) 50 MG tablet Take 1 tablet by mouth once as needed for Migraine Maximum daily dose: 200mg/24 hours Reasons: Migraine Headache 30 tablet 0 ??? traZODone (Desyrel) 100 MG tablet TAKE 1 TABLET BY MOUTH EVERY DAY AT BEDTIME NEEDED FOR INSOMNIA ??? traZODone (DESYREL) 50 MG tablet Take 50 mg by mouth nightly as needed for Insomnia ??? TRELEGY ELLIPTA 100-62.5-25 MCG/INH Inhale 1 puff by mouth every 6 hours as needed ??? Vitamin D3 (Cholecalciferol) 50 MCG (2000 UT) capsule TAKE 1 CAPSULE BY MOUTH ONCE DAILY 90 capsule 3 ??? Xtampza ER 13.5 MG capsule Take 1 (one) capsule by mouth every 12 hours No current facility-administered medications on file prior to visit. Allergies as of 08/05/2022 - Reviewed 08/05/2022 Allergen Reaction Noted ??? Amoxicillin Rash 02/19/2019 ??? Penicillins Rash 11/03/2012 ??? Codeine Other 11/03/2012 ??? Epinephrine Other 11/03/2012 Past Medical History: Diagnosis Date ??? Abnormal levels of other serum enzymes 12/22/2012 - trending down, near baseline - all other liver enzymes and bili wnl ??? Acromioclavicular joint arthritis 09/09/2016 ??? Acute respiratory failure due to COVID-19 (CMS/HCC) 01/2021 ??? Alkaline phosphatase elevation 12/19/2012 Overview: - trending down, near baseline - all other liver enzymes and bili wnl ??? Anemia 05/16/2015 ??? Anxiety state 12/27/2012 Overview: - pt reports episodes of impending doom, seen by psych recommends clonopin BID, will clarify pts need for ativan for N/V ??? Arthrodesis status 11/14/2014 ??? Backache 02/20/2015 ??? Bilateral arm weakness 03/09/2019 ??? Blood clot in vein 01/13/2013 ??? Carpal tunnel syndrome of right wrist 09/22/2016 ??? Central sleep apnea 2015 ? r/t spinal surgery ??? Cervicalgia 07/02/2014 ??? Chronic coughing 07/18/2021 ??? Chronic fatigue 07/18/2021 ??? Chronic rhinitis 08/31/2015 ??? Chronic, continuous use of opioids 07/18/2021 ??? Claustrophobia 07/15/2021 ??? Convulsions (CMS/HCC) 01/02/2013 ??? COPD (chronic obstructive pulmonary disease) (CMS/HCC) ??? COVID-19 01/2021 hospitalized February 07-, on oxygen for about 8 weeks ??? Daytime sleepiness 07/18/2021 ??? Depression 07/15/2021 ??? Elevated MCV 07/18/2021 ??? Enuresis 07/15/2021 ??? Epistaxis, recurrent 08/31/2015 ??? Full dentures 07/18/2021 ??? Generalized anxiety disorder 05/16/2015 - pt reports episodes of impending doom, seen by psych recommends clonopin BID, will clarify pts need for ativan for N/V ??? GERD (gastroesophageal reflux disease) 07/15/2021 ??? High cholesterol ??? History of penicillin allergy 08/31/2015 ??? Hodgkin's disease (CMS/HCC) 01/16/2013 ??? Hodgkins lymphoma (CMS/HCC) 2012 ??? Inadequate sleep hygiene 07/18/2021 ??? Infectious disease 08/30/2015 ??? Leg cramps 07/18/2021 ??? Mass of breast 12/13/2012 - Patient on exam has palpable LN in Left breast; has been evaluated by Dr Chavez. - Repeat U/S breast 11/10- not concerning for malignancy- no intervention needed, patient to undergo repeat mammogram in one year. ??? Migraine ??? Mild persistent asthma, uncomplicated 06/22/2017 ??? Nausea 04/18/2017 ??? Nausea with vomiting 12/29/2012 Poorly controlled with marinol 2.5 BID, ativan .5 AC PRN, and palonosetron Well controlled with scopolamine patch ??? Night sweats 07/18/2021 ??? Nightmares 07/18/2021 ??? Non-seasonal allergic rhinitis 07/11/2020 ??? Other symptoms and signs involving the musculoskeletal system 09/22/2016 ??? Pain 12/13/2012 - Pain in back and shoulder treated with Oxycodone 5 Mg Q4 anf Oxycontin 20 mg am, 30 mg pm, well controlled ??? Pain in left knee 09/18/2015 ??? Pain in left shoulder 11/06/2015 ??? Pain in right knee 07/11/2015 ??? Parotid nodule 08/22/2020 ??? Primary osteoarthritis of left knee 09/09/2016 ??? Primary osteoarthritis of right knee 09/09/2016 ??? Primary osteoarthritis of shoulder 09/09/2016 ??? Pseudarthrosis after fusion or arthrodesis 02/20/2015 ??? PTSD (post-traumatic stress disorder) 07/15/2021 family and cancer ??? Recurrent sinus infections 07/15/2021 ??? Restless legs syndrome (RLS) 07/18/2021 ??? Right otitis media with effusion 07/18/2020 ??? Severe episode of recurrent major depressive disorder, without psychotic features (CMS/HCC) 01/11/2019 ??? Sleep apnea ??? 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 Sleep talking 07/18/2021 ??? Suicidal ideation 07/15/2021 ??? Thrombocytopenia (CMS/HCC) 02/16/2013 ??? TMJ (temporomandibular joint disorder) 07/11/2020 ??? Unrefreshed by sleep 07/18/2021 ??? Unspecified disorder of synovium and tendon, left shoulder 09/09/2016 ??? Wears glasses 07/18/2021 Past Surgical History: Procedure Laterality Date ??? Back Surgery 2014 fell and broke rods-another fusion ??? BIOPSY 2020 neck lymph ??? HX SPINAL FUSION 2012 ??? Knee Arthroscopy Left 2007 ??? Knee Arthroscopy Right 2008 ??? LUTHER TOOTH EXTRACTION 2012 all 14 System review of systems: Pertinent Positives and Negatives HEENT- No blurred vision Cardio- No chest pain or palpations Respiratory- No shortness of breath Abd- No abdnominal pain 14 System review of systems was otherwise negative as reviewed today. Social History Occupational History ??? Occupation: [employer] Tobacco Use ??? Smoking status: Former Packs/day: 1.00 Years: 14.00 Pack years: 14.00 Types: Cigarettes Start date: 1984 Quit date: 11/30/1997 Years since quittin.6 ??? Smokeless tobacco: Never Vaping Use ??? Vaping Use: Never used Substance and Sexual Activity ??? Alcohol use: Yes Alcohol/week: 0.0 - 1.0 standard drinks Comment: once a month ??? Drug use: Yes Types: Marijuana Comment: once a month ??? Sexual activity: Yes Partners: Male Family History Family History Problem Relation Name Age of Onset ??? Heart Disease Mother hannah ??? Diabetes Mother hannah ??? Hypertension Mother hannah ??? CAD (Coronary Artery Disease) Mother hannah ??? Cancer Father denise thyroid ??? Heart Disease Father denise ??? Hypertension Father denise ??? CAD (Coronary Artery Disease) Father denise ??? None Known Brother Otherwise reviewed and non-contributory Physical Exam: The patient is awake, alert, oriented and they are pleasant to speak with. Gait is normal. There was a negative straight leg raise bilaterally. Evaluation of the uninjured left hip noted no skin lesions, neurovascularly intact. There was no tenderness/swelling/deformity. Ligamentously stable. Painless hip range of motion. No snapping. Negative impingement. The right lower extremity is neurovascularly intact with no active skin lesions. There is not swelling. There is greater trochanter tenderness. There is 20 deg hip internal rotation. There is 70 deg hip external rotation. Anterior impingement test is negative. Posterior impingment is negative. Flexion subspine impingement test is negative. There is no hip laxity. There is no snapping with hip active and passive circumduction. There is not pain with shucking the hip. There is not pain with logrolling the hip. There is not pain during an abdominal crunch. There is not pain during an abdominal crunch with resisted hip adduction. Imaging: I have personally reviewed the patient's imaging results. I have independently visualized and interpreted the images myself. By my read, the pertinent findings include: hip X-rays and MRI images and report re-reviewed by me today are positive for early degenerative changes, trochanteric bursitis on the right, gluteus medius tear. Impression: 51 y F with right hip early degenerative changes, trochanteric bursitis, gluteus medius tear Plan: We recommended that they try the following to treat their injury: icing, tylenol, anti-inflammatorymedications, activity modification, physical therapy exercises, corticosteroid injections, corticosteroid injection given in clinic today and . She also has painful bilateral CMC arthritis and would like a referral to see the hand team. Please do not hesitate to contact me with questions regarding her or any other patient in the future. Our clinical nurse, Heathre Roper, can be reached at . Sincerely, Wai Lowry MD YTICAL SCIENTIST * uLlu Camacho RN - 08/05/2022 10:33 AM CST HEre for right hip F/U- TS YTICAL SCIENTIST documented in this encounter Procedure Notes * Wai Lowry MD - 08/05/2022 11:06 AM CSTAssociated Order(s): PROCDOC LARGE JOINT INJECTION Procedure(s): LA DRAIN/INJECT LARGE JOINT/BURSA Pre-Procedure Diagnose(s): Trochanteric bursitis of right hip INJECTION PROCEDURE NOTE: The injection site was marked. A timeout was performed. Under sterile conditions, without complications, tolerated well by the patient, 4 cc ropivacaine and 80 mg (2 cc) triamcinolone were injected into the right greater trochanteric bursa. YTICAL SCIENTIST documented in this encounter Miscellaneous Notes * Addendum Note - Lulu Camacho RN - 08/06/2022 10:25 AM CSTAddended by: LULU CAMACHO on: 08/06/2022 10:25 AM Modules accepted: Orders YTICAL SCIENTIST documented in this encounter Plan of Treatment Not on file documented as of this encounter Procedures Procedure Name Priority Date/Time Associated Diagnosis Comments LA DRAIN/INJECT LARGE JOINT/BURSA Routine 08/05/2022 11:06 AM ANALYTICAL SCIENTIST Trochanteric bursitis of right hip documented in this encounter Results * LA DRAIN/INJECT LARGE JOINT/BURSA (08/05/2022 11:06 AM ANALYTICAL SCIENTIST) Narrative Wai Lowry MD - 08/05/2022 11:06 AM ANALYTICAL SCIENTIST Wai Lowry MD ? 08/05/2022 ??2:01 PM INJECTION PROCEDURE NOTE: The injection site was marked. A timeout was performed. Under sterile conditions, without complications, tolerated well by the patient, 4 cc ropivacaine and 80 mg (2 cc) triamcinolone were injected into the right greater trochanteric bursa. Wai Lowry MD PROCEDURE/MINOR SURG ICAL ORDERABLES documented in this encounter Visit Diagnoses Diagnosis Trochanteric bursitis of right hip- Primary Enthesopathy of hip region documented in this encounter Administered Medications Inactive Administered Medications - up to 3 most recent administrations Medication Order MAR Action Action Date Dose Rate Site ropivacaine (Naropin) 5 MG/ML (0.5%) injection 4 mL 4 mL, Intra-articular, ONCE, 1 dose, On Wed08/05/22 at 1130 $ Given 08/05/2022 11:17 AM ANALYTICAL SCIENTIST 4 mL Right Hip triamcinolone acetonide (Kenalog-40) injection 80 mg 80 mg, Intra-articular, ONCE, 1 dose, On Wed08/05/22 at 1130, Shake well before using. $ Given 08/05/2022 11:17 AM ANALYTICAL SCIENTIST 80 mg Righ t Hip documented in this encounter Care Teams Insulation Sprayer Relationship Specialty Start Date End Date Blake Lindsey MD [address] [place] [address] PCP - General 05/20/16 documented as of this encounter
--- OUTSIDE RECORDS SUMMARY | 2024-07-29 17:20 | XMS_ITS | Encounter Summary ---
Author Organization [facility] Health Address [address] [place] [address] Care Team Providers Care Information Services Assistant Name Role Phone Blake Lindsey MD Primary Care Provider Encounter Details Date Type Department Care Team (Latest Contact Info) Description 06/09/2022 3:40 PM COST ESTIMATING MANAGER - 06/09/2022 11:59 PM [facility] Hospital Encounter [facility] [address] [facility] ([facility] [address] [place] [address] Discharge Disposition: Home or Self Care Social [...] (one) tablet by mouth once daily 07/19/2020 FeroSul 325 (65 Fe) MG tabletIndications:Iro n deficiency anemia, unspecified iron deficiency anemia type TAKE 1 TABLET BY MOUTH ONCE DAILY, TAKE AT TGHE SAME TIME YOUR VITAMIN TABLET 90 tablet 3 04/08/2022 furosemide (LASIX) 20 MG tabletIndications:Bernardo ma Take [...] bilateral nares 22 g 1 03/17/2021 NYSTOP 991892 UNIT/GM powder Apply 1 Dose to affected [...] 2 03/09/2019 SUMAtriptan (IMITREX) 50 MG tabletIndications:Jatin mcghee Take 1 tablet by mouth once as needed for Migraine Maximum daily dose: 200mg/24 hours Reasons: Migraine Headache 30 tablet 01/12/2019 traZODone (DESYREL) 50 MG tablet Take 1 (one) tablet by mouth nightly as needed for Insomnia 06/26/2020 Cholecalciferol (VITAMIN D) 50 MCG (2000 UT) capsule Take 1 (one) capsule by mouth once daily 90 capsule 3 08/14/2021 07/07/2022 fluticasone propionate (FLONASE) 50 MCG/ACT nasal spray Seaview 2 sprays into each nostril once daily [...] Diagnosis Comments CBC W AUTO DIFFERENTIAL STAT 06/09/2022 3:46 PM COST ESTIMATING MANAGER Hodgkin lymphoma, unspecified Hodgkin lymphoma type, unspecified body region (HCC) COMPREHENSIVE METABOLIC PANEL STAT 06/09/2022 3:46 PM COST ESTIMATING MANAGER Hodgkin lymphoma, unspecified Hodgkin lymphoma type, unspecified body region (HCC) documented in this encounter Results * (ABNORMAL) COMPREHENSIVE METABOLIC PANEL (06/09/2022 3:46 PM COST ESTIMATING MANAGER) BUN 12 7 - 26 mg/dL 06/09/2022 4:29 PM [facility] Creatinine 0.66 0.56 - 0.96 mg/dL 06/09/2022 4:29 PM [facility] Sodium 140 136 - 145 mmol/L 06/09/2022 4:29 PM [facility] Potassium 3.7 3.5 - 4.5 mmol/L 06/09/2022 4:29 PM [facility] Chloride 111(H) 98 - 107 mmol/L 06/09/2022 4:29 PM [facility] CO2 21(L) 22 - 29 mmol/L 06/09/2022 4:29 PM [facility] Glucose 115 70 - 115 mg/dL 06/09/2022 4:29 PM [facility] Calcium 9.9 8.4 - 10.2 mg/dL 06/09/2022 4:29 PM [facility] Protein Total 7.7 6.0 - 8.3 g/dL 06/09/2022 4:29 PM [facility] Albumin 4.0 3.4 - 5.0 g/dL 06/09/2022 4:29 PM [facility] Bilirubin Total 0.7 0.2 - 1.2 mg/dL 06/09/2022 4:29 PM [facility] Alkaline Phosphatase 116 40 - 150 U/L 06/09/2022 4:29 PM [facility] ALT 16 5 - 55 U/L 06/09/2022 4:29 PM [facility] AST 16 5 - 34 U/L 06/09/2022 4:29 PM [facility] Anion Gap 12 8 - 18 06/09/2022 4:29 PM [facility] BUN/Creatinine Ratio 18 7 - 23 06/09/2022 4:29 PM [facility] Osmolality Calculated 291 270 - 300 mOsm/kg 06/09/2022 4:29 PM [facility] Albumin/Globulin Ratio 1.1 1.1 - 2.3 06/09/2022 4:29 PM [facility] eGFR by CKD-EPI >90 >=90 mL/min/1.7 3 m2 06/09/2022 4:29 PM [facility] Blood BLOOD SPECIMEN / Unknown Lab Venipuncture / Unknown 06/09/2022 3:46 PM COST ESTIMATING MANAGER 06/09/2022 4:02 PM COST ESTIMATING MANAGER Ashish Peralta MD LAB - CHEMISTRY ORDE [facility] Organization Address City/State/ZIP Co de Phone Number [facility] [address] [place] [id number], [facility] [phone] * (ABNORMAL) CBC WITH DIFFERENTIAL (06/09/2022 3:46 PM COST ESTIMATING MANAGER) WBC 9.8 3.5 - 10.5 10? 3 /uL 06/09/2022 4:08 PM [facility] RBC 4.93 3.80 - 5.20 10? 6 /uL 06/09/2022 4:08 PM [facility] Hemoglobin 15.6 12.0 - 15.6 g/dL 06/09/2022 4:08 PM [facility] Hematocrit 45.9(H) 35.0 - 45.0 % 06/09/2022 4:08 PM [facility] MCV 93.1 80.7 - 98.3 fL 06/09/2022 4:08 PM [facility] MCH 31.6 26.7 - 34.0 pg 06/09/2022 4:08 PM [facility] MCHC 34.0 30.8 - 35.9 g/dL 06/09/2022 4:08 PM [facility] RDW-SD 42.9 36.0 - 50.0 fL 06/09/2022 4:08 PM [facility] RDW-CV 12.5 11.2 - 14.8 % 06/09/2022 4:08 PM [facility] Platelet Count 225 150 - 400 10? 3 /uL 06/09/2022 4:08 PM [facility] MPV 8.6(L) 9.4 - 12.9 fL 06/09/2022 4:08 PM [facility] nRBC Absolute 0.00 0 10? 3 /uL 06/09/2022 4:08 PM [facility] nRBC Auto 0.0 0 /100 WBC 06/09/2022 4:08 PM [facility] Neutrophils % 65.2 35.0 - 70.0 % 06/09/2022 4:08 PM [facility] Lymphocytes % 23.4 20.0 - 43.0 % 06/09/2022 4:08 PM [facility] Monocytes % 7.2 5.0 - 13.0 % 06/09/2022 4:08 PM [facility] Eosinophils % 3.2 0.0 - 6.0 % 06/09/2022 4:08 PM [facility] Basophil % 0.6 0.0 - 2.0 % 06/09/2022 4:08 PM [facility] Neutrophils Absolute 6.37 1.60 - 7.00 10? 3 /uL 06/09/2022 4:08 PM [facility] Lymphocyte Absolute 2.29 1.10 - 3.90 10? 3 /uL 06/09/2022 4:08 PM [facility] Monocytes Absolute 0.70 0.26 - 1.07 10? 3 /uL 06/09/2022 4:08 PM [facility] Eosinophils Absolute 0.31 0.00 - 0.47 10? 3 /uL 06/09/2022 4:08 PM [facility] Basophils Absolute 0.06 0.00 - 0.08 10? 3 /uL 06/09/2022 4:08 PM COST ESTIMATING MANAGER [facility] Immature Granulocytes % 0.4 0.0 - 1.0 % 06/09/2022 4:08 PM COST ESTIMATING MANAGER [facility] Immature Granulocytes Absolute 0.04 06/09/2022 4:08 PM COST ESTIMATING MANAGER [facility] Blood BLOOD SPECIMEN / Unknown Lab Venipuncture / Unknown 06/09/2022 3:46 PM COST ESTIMATING MANAGER 06/09/2022 4:02 PM COST ESTIMATING MANAGER Ashish Peralta MD LAB - HEMATOLOGY ORD ERABLES [facility] [address] [place] [address]RUST [phone] documented in this encounter Visit Diagnoses Diagnosis Hodgkin lymphoma, unspecified Hodgkin lymphoma type, unspecified body region (HCC) documented in this encounter Care Teams Information Services Assistant Relationship Specialty Start Date End Date Blake Lindsey MD [address] [place] [address] PCP - General 05/20/16 documented as of this encounter
--- OUTSIDE RECORDS SUMMARY | 2024-07-29 17:20 | XMS_ITS | Encounter Summary ---
Author Organization [facility] Health Address [address] [place] [address] Care Team Providers Care Sap Technical Architect Name Role Phone Blake Lindsey MD Primary Care Provider [phone] Reason for Referral * Radiology Services (Routine) - Closed Specialty Diagnoses / Procedures Referred By Contac t Referred To Contact CT Scan Diagnoses Abnormal CT of the chest Procedures CT Chest Wo Lou And Don Rider MD [address] [place] [address] 2L DIV OF PULMONARY/[place] [address] [facility] [address] [place] [address] Referral ID Status Reason Start Date Expiration Date Visits Re quested Visits Authorized [id number] Closed 04/11/2024 04/11/2025 1 1 Reason for Visit * Radiology Services (Routine) - Closed Specialty Diagnoses / Procedures Referred By Contac t Referred To Contact CT Scan Diagnoses Abnormal CT of the chest Procedures CT Chest Wo Lou And Don Rider MD [address] [facility] 2L DIV OF PULMONARY/[place] [address] [facility] [address] [place] [address] Referral ID Status Reason Start Date Expiration Date Visits Re quested Visits Authorized [id number] Closed 04/11/2024 04/11/2025 1 1 Encounter Details Date Type Department Care Team (Latest Contact Info) Description 05/22/2024 9:55 AM CDT - 05/22/2024 11:59 PM CDT Hospital Encounter [facility] CAT SCAN [address] [place] [address] Don Manuel MD [address] [facility] 2L DIV OF PULMONARY/[place] [address] Discharge Disposition: Home or Self Care Social [...] Date albuterol (PROVENTIL;VENTOLIN) (2.5 MG/3ML) 0.083% nebulizer solutionIndications:Br onchospastic Disease INHALE 3 ML BY NEBULIZATION 3 TIMES DAILY Reasons: Disease Involving Spasms of the Bronchus 1 vial 01/12/2019 ascorbic acid (VITAMIN C) 500 MG tabletIndications:Iron deficiency anemia, unspecified iron deficiency anemia type [...] daily 07/19/2020 FeroSul 325 (65 Fe) MG tabletIndications:Iron deficiency anemia, unspecified iron deficiency anemia type TAKE 1 TABLET BY MOUTH ONCE DAILY, TAKE AT TGHE SAME TIME YOUR VITAMIN TABLET 90 tablet 3 04/08/2022 fluticasone-umeclidin- vilant (Trelegy Ellipta) 200-62.5-25 MCG/ACT inhaler Inhale 1 (one) puff by mouth once daily 60 Each 3 04/11/2024 furosemide (LASIX) 20 MG tabletIndications:Sacha a Take 1 tablet by mouth once daily Reasons: Edema 30 tablet 01/12/2019 gabapentin (NEURONTIN) 300 MG capsule Take 1 (one) capsule by mouth 3 times daily 06/04/2020 levalbuterol (Xopenex) 0.31 MG/3ML nebulizer solution Inhale 3 mL by mouth every 8 hours as needed for Shortness of Breath or Wheezing 270 mL 4 04/11/2024 lubiprostone (Amitiza) 24 MCG capsule Take 1 (one) capsule by mouth 2 times daily with morning and evening meal montelukast (SINGULAIR) 10 MG tablet Take 1 (one) tablet by mouth once daily 06/21/2020 Movantik 25 MG tablet 09/09/2022 mupirocin (BACTROBAN) 2 % ointment Apply to affected area 3 times daily To bilateral nares 22 g 1 03/17/2021 nitrofurantoin monohyd macro crystals (Macrobid) 100 MG capsule Take 1 (one) capsule by mouth 2 times daily with morning and evening meal 06/26/2023 Nurtec 75 MG tablet Take 75 mg by mouth as directed 07/14/2022 NYSTOP 200148 UNIT/GM powder Apply 1 Dose to affected area as directed 1 03/06/2019 omeprazole (PRILOSEC) 20 MG capsule Take 1 (one) capsule by mouth once daily 08/09/2020 ondansetron (ZOFRAN) 4 MG tablet Take 1 (one) tablet by mouth as needed for Nausea/Vomiting 04/17/2020 ondansetron, disintegrating, (Zofran ODT) 4 MG tablet Take 1 (one) tablet by mouth every 8 hours as needed 12/07/2023 phentermine (Adipex-P) 37.5 MG tablet Take 1 (one) tablet by mouth once daily 12/12/2023 potassium chloride ER (KLOR-CON) 20 MEQ tablet Take 1 (one) tablet by mouth once daily 0 04/05/2019 prazosin (MINIPRESS) 1 MG capsule Take 1 (one) capsule by mouth as directed 02/25/2021 predniSONE (Deltasone) 10 MG tablet Take 1 (one) tablet by mouth once daily 10/22/2023 predniSONE (Deltasone) 20 MG tablet Take 2 (two) tablets by mouth once daily 10 tablet 04/11/2024 QUEtiapine (SEROQUEL) 100 MG tabletIndications:Ivonne r Depressive Disorder Take 1 tablet by mouth at bedtime Reasons: Major Depressive Disorder 30 tablet 01/12/2019 QUEtiapine (SEROquel) 50 MG tablet Take 1 (one) tablet by mouth at bedtime 07/20/2022 silver sulfADIAZINE (Silvadene) 1 % cream Apply to affected area once daily 05/14/2023 spironolactone (ALDACTONE) 25 MG tablet Take 1 (one) tablet by mouth once daily 2 03/09/2019 SUMAtriptan (IMITREX) 50 MG tabletIndications:Migr flores Take 1 tablet by mouth once as needed for Migraine Maximum daily dose: 200mg/24 hours Reasons: Migraine Headache 30 tablet 01/12/2019 traZODone (Desyrel) 100 MG tablet Take 1 (one) tablet by mouth nightly as needed 07/20/2022 traZODone (DESYREL) 50 MG tablet Take 1 (one) tablet by mouth nightly as needed for Insomnia 06/26/2020 Vitamin D3 (Cholecalciferol) 50 MCG (1999 UT) capsuleIndications:Vit tapia D deficiency TAKE 1 CAPSULE BY MOUTH EVERY DAY 90 capsule 3 08/31/2023 Xtampza ER 13.5 MG capsule Take 1 (one) capsule by mouth every 12 hours 07/27/2022 documented as of this encounter Plan of Treatment Not on file documented as of this encounter Procedures Procedure Name Priority Date/Time Associated Diagnosis Comments CT CHEST WO CONT AND HIRES Routine 05/22/2024 10:[address] of the chest documented in this encounter Results * CT Chest Wo Cont And Hires (05/22/2024 10:02 AM CDT) Anatomical Region Laterality Modality Chest Computed Tomogra phy 05/22/2024 10:4 5 AM CDT Impressions 05/22/2024 7:55 PM CDT Impression: 1.Moderate air trapping concerning for small airway disease.. > Dictated by Hanna Tyson MD, MD (global consumer sector vice president). I, Madhu Olivier MD have personally [...] Olivier MD - 05/22/2024 PROCEDURE: CT CHEST TRINH TERAN DATE/TIME OF EXAM: 05/22/2024 10:02 AM CLINICAL [...] > Dictated by Hanna Tyson MD, MD (global consumer sector vice president). I, Madhu Olivier MD have personally reviewed and interpreted this examination/study. > Interpreting Provider: Madhu Olivier MD on 05/22/2024 7:55 PM [address] Manuel MD [address] ORDERABLES documented in this encounter Visit Diagnoses Diagnosis Abnormal CT of the chest Nonspecific (abnormal) findings on radiological and other examination of other intrathoracic organs documented in this encounter Care Teams Sap Technical Architect Relationship Specialty Start Date End Date Blake Lindsey MD [address] [place] [id number] PCP - General 05/20/16 documented as of this encounter
--- OUTSIDE RECORDS SUMMARY | 2024-07-29 17:20 | XMS_ITS | Encounter Summary ---
Author Organization [facility] Address [address] [place] [address] Care Team Providers Care Piano Player Name Role Phone Blake Lindsey MD Primary Care Provider [phone] Reason for Visit * Reason Comments Lesions New patient, lesions on scalp and arms Full Body Skin Examination Encounter Details Date Type Department Care Team (Late Contact [facility]) Description 10/02/2022 12:50 PM AXLE TURNER Office Visit [facility] [address] [place] [address], [place] [address] Jaun Mascorro MD [address] [place] [address] [address] [place] [address] Neoplasm of uncertain behavior of skin (Primary Dx); History of basal cell carcinoma (BCC); Multiple benign melanocytic nevi of upper and lower extremities and trunk; Lentigines; Seborrheic keratosis; Donahue angioma; Hammer toes of both feet; Bunion; Scar Social History Tobacco Use Types Packs/Day Years [...] this encounter Patient Instructions * Patient Instructions* Héctor Swenson MD - 10/02/2022 12:33 PM AXLE TURNER Follow up in 6 months for full body skin exam We took a biopsy of your left back today to see what area looks like under the microscope - we willcall you with results. There are instructions below on how to take care of the site. WOUND CARE INSTRUCTIONS If you have a bandage, please leave your bandage on overnight. Starting the next day, cleanse your wound with mild soap and water and gently pat dry. Avoid soaking in bath or dishwater. Apply petroleum jelly to the wound after cleaning the wound and, as needed, throughout the day to keep the area moist and prevent a scab from forming. Cover the wound with a Band-Aid or appropriate dressing. For pain, you may take acetaminophen (extra or regular strength), 2 tablets every four hours as needed for pain. Do not exceed the recommended limit on the directions. Avoid ibuprofen containing products or related products(Motrin, Advil, Aleve, aspirin, etc) unless prescribed by your physician. Avoid any trauma of activity that may open your surgical wound. Notify your physician if you have: Bleeding that does not stop after 20 minutes of continuous pressure. Yellowish/greenish discharge from the treated area Increasing tenderness or pain Warmth of the area and/or fever over 101 F Red streaks up the arm or leg close to the treated area SUNSCREENS For skin cancer prevention: We recommend DAILY sun protection and MONTHLY self skin exams. Examine your moles for any changes. Alert us of any moles that are Asymmetrical, have irregular Borders, more than one Color in a mole, larger than 6mm in Diameter (the end of a pencil eraser), or anything that is Evolving/changing over time (A-B-C-D-Es of Melanoma). See below for sun screen recommendations. SUNSCREENS: UVA and UVB PROTECTION Sunlight consists of two types of light that can cause or worsen most skin problems: UVA (ultraviolet A) UVB (ultraviolet B) Causes brown spots/sun spots Causes skin cancer Causes wrinkles Causes sunburn Causes aging Responsible for tanning Worsens rosacea Strongest in summer Less variation with seasons Peak hours 10am-2pm All year round SPF rates UVB protection All day strong No rating system available Passes through glass and clouds *Sunscreens that block both UVA and UVB light contain: Zinc Oxide (should contain at least 5% zinc oxide) Titanium Dioxide Parsol or Avobenzone (additives improve stability of Avobenzone) There are other UVA blocking ingredients but they are not as complete as these three. Tips/Suggestions 1) Always use sunscreens with SPF of 30 or higher 2) Make sure the sunscreen has zinc oxide or other UVA block such as Helioplex or Anthelios in product 3) Remember there is no safe UV light:...so there is no such thing as a safe suntan. 4) Apply sunscreen daily (even in winter and on cloudy days) and reapply every 2 to 4 hours depending on activity. 5) Approximately one ounce (a shot glass) is necessary to adequately cover the entire body. 6) Approximately one teaspoon is necessary to adequately cover the face *Face sunscreens we like: EltaMD UV Clear, Cerave AM facial moisturizer, [place] *Body sunscreens we like: Neutrogena, [place], Vanicream sunscreen SPF 35 Remember the best sunscreen is whichever one you will wear every day! TURNER documented in this encounter Progress Notes * Héctor Swenson MD - 10/02/2022 12:31 PM CST Chief Complaint Patient presents with ??? Lesions New patient, lesions on scalp and arms ??? Full Body Skin Examination HPI: Lakeisha Alejandra a 51 year old female presents for establish care and skin check Concerns: 1. Reports of hx of BCC on scalp. Has other scalp lesions she would like checked Status: chronic Duration: at least since mid 2021 Symptoms: rough spots on front scalp Treatments: none Per chart review: Noted to have new onset of 0.5 cm basal cell carcinoma of skin on the of scalp detected by her plastic surgeon at [facility] in [place], [place] on 12/09/2021. Personal history of skin cancer: - BCC (reported by pt) L parietal scalp, 01/2022, removed by plastic surgeon ([facility]) Allergies and medications were reviewed and verified. ROS: As per HPI above. PE: No acute distress. Mood clear/affect appropriate. Alert and oriented. Mucous membranes moist. Sclera anicteric. Full body skin exam was conducted to include the scalp, face, lips, ears, neck, chest, abdomen, back, buttock, right and left hands and forearms, right and left leg and feet and was normal with the following exceptions: -Multiple 2-6 mm evenly pigmented thompson to brown macules and papules on face, trunk, and extremities,but none with markedly different appearance from the others unless otherwise noted -Several scattered 2-3mm donahue red round macules on trunk and extremities -Scattered, well-defined, thompson to light brown macules on sun exposed skin including face, shoulders,trunk and arms but none with markedly different appearance from others unless otherwise noted -Cla[place]on to thompson/brown waxy/hyperkeratotic stuck on papules on the face, trunk and arms - Firm brown to pink smooth-topped papule with positive dimple sign on the R ankle -brown very thin papule with regular border on L back, with central blue structure - 4 brown/thompson patches on sherif ankles A/P: Lakeisha Alejandra a 51 year old female presents for establish care and lesions Lakeisha was seen today for lesions and full body skin examination. Diagnoses and all orders for this visit: Neoplasm of uncertain behavior of skin - PROC BIOPSY OF SKIN LESION - DERMATOPATHOLOGY L back DDx: dysplastic nevus vs Intradermal nevus; r/o melanoma - Shave Biopsy (see procedure note) - Post-biopsy handout given - Wound care instructions reviewed - Will call patient with biopsy results. If intervention is indicated, will make arrangements at that time History of basal cell carcinoma (BCC) L parietal scalp 01/2022 (by outside plastic surgeon) - No evidence of recurrence - Counseled on importance of daily sun protection (SPF >30, Broad Spectrum), and monthly self skin exams (in AVS) - Sun Screen hand out provided (in AVS) - [id number] fbse for two years since last NMSC Multiple benign melanocytic nevi of upper and lower extremities and trunk - Benign, reassurance - Counseled on importance of sun protective behaviors incl sunblock/sunscreen (broad-spectrum UVA/B[ZnOx, TiO2, combos w/ avobenzone], SPF >30), monthly self skin exams - ABCDEs of melanoma reviewed (in AVS) - Sun screen hand out provided Lentigines -Explained benign nature, is marker of UV damage -Counseled on importance of sun protective behaviors incl sunblock/sunscreen (broad-spectrum UVA/B [ZnOx, TiO2, combos w/ avobenzone], SPF >30), monthly self skin exams, and avoid direct sunlight/tanning Seborrheic keratosis - Benign, reassurance Donahue angioma - Benign, reassurance Hammer toes of both feet Bunion - AMB REFERRAL TO PODIATRY; Future Pt requesting podiatry referral. Referral sent Scar Sherif ankles. Pt reports hx of chronic wounds requiring regular debridement in 2013. 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 Have not recurred, but still has scars and skinpigment changes - monitor - not atypical on exam today Dermatofibroma R ankle - Benign, reassurance RTC in 6 months for repeat fbse Coding Rationale New or est? New Patient Highest problem complexity: 1 undiagnosed new problem with uncertain prognosis Highest level of risk: Low Suggested code: 96667 Patient examined and discussed with attending physician Héctor Swenson MD [facility] Dermatology Resident, PGY2 TURNER * Jaun Mascorro MD - 10/02/2022 12:20 PM CST I have seen and examined the patient with the resident and I agree with the findings and plan of care as documented by the resident. Please see note for further details. I was always immediately available. I confirm history, exam, assessment and plan with no exceptions/additions unless otherwise noted: CC: lesion HPI: Has hx of: -BCC (reported by pt) L parietal scalp [facility] January 2022 [place] face cryo elsewhere Has hx brown spots, jorge trunk. Nevi, lentigines, SK. Most present for years. Occ itchy lesions. Has had cryo ILK jorge scalp. No active trt for brown spots. Bx 03/10/16: L scalp: SK Other derm hx: Has hx eruption x yrs. No exact dx ever given Lower legs Gets ulcers Prior trt/hx: -03/24/12: 1st note in system Today she is here to establish care with us. About 6 weeks ago she noticed a rash in her bilateral lower extremities. The rash is kind of a bumpy, painful. She received Bactrim for the rash and that did not help. No fever no chills no similar rash in the past. Also she visited at dentist Recently, x-ray of her gums was done And it showed that 50% of her gum mass was gone, her teeth are loose. Plan: Unclear etiology of the rash. We will do CBC CMP AURY panel ESR CRP. We will refer her to dermatology and rheumatology. Diagnosis unclear, it could be some kind of autoimmune disease. rash and gingivitis and loss of gummass could be related. -visits w/ wound care, others: At least 1 ctx: pseudomonas At least 1 bx: non-dx, descriptions of extensive acute & chronic inflammation -10/02/22: Not active, just scars now. Lots of debridements done in past; when asked, maybe worse shortly after these. Says cleared when did chemo for Hodgkin 2013--BEACOPP (bleo, etoposide, doxorubicin [Adriamycin], cyclophos, vincristine [Oncovin], procarbazine, pred). PE: scars lower legs; pics: inflamed ulcers w/ moist, necrotic bases Plan: unk what it was, ddx PG, skin comp of lymphoma, paraneoplastic, could be that chemo had anti-inflam effects - ROS: No recent relevant illnesses/fevers or other skin complaints except noted otherwise. Relevant past medical history, social history and family history were reviewed, no changes or remarkable points unless otherwise noted. Hodgkins lymphoma, allergies, asthma, COPD, PTSD, migraine, anemia, spine surgery, cervicalgia, covid, PE: Gen: Alert, oriented, NAD, affect appropriate, pleasant Skin: Exam of the face, eyelids, scalp, lips, neck, bilat upper extr including nails and digits, chest, back, abd, bilat lower extr examined and unremarkable unless otherwise noted below: -well-healed scar(s) in area(s) of prior skin ca as described above -waxy, well-defined, stuck on papules on the extr, trunk -thompson to brown well defined macules on shoulders -brown macules and papules on trunk and extr, but none with markedly different appearance from the others unless otherwise noted -L back: well def papule w/ slightly off-center irreg darker pigm Assessment/Plan Neoplasm of unspecified nature/uncertain beh -shave bx Hx NMSC (non-melanoma skin ca) as described above -no signs of recurrence except/unless noted otherwise -sun protective behaviors incl sunblock/sunscreen (broad-spectrum UVA/B [ZnOx, TiO2, combos w/ avobenzone], pref spf>30) -f/u at least yearly Actinic lentigines/solar lentiginosis, multiple nevi -benign, educ, reassurance -marker of chronic sun damage and increased risk for skin malignancy, periodic/yearly FBSE reasonable -sun protective behaviors incl sunblock/sunscreen (broad-spectrum UVA/B [ZnOx, TiO2, combos w/ avobenzone], pref spf>30) seborrheic keratosis (SK) -benign, educ of nature, causes, course, reassurance not dangerous/cancerous -no treatment indicated unless symptomatic RTC 1 year Jaun Mascorro MD TURNER documented in this encounter Procedure Notes * Héctor Swenson MD - 10/02/2022 1:47 PM CSTAssociated Order(s): PROC BIOPSY OF SKIN LESION Procedure(s): NJ TANGNTL BX SKIN SINGLE LES Pre-Procedure Diagnose(s): Neoplasm of uncertain behavior of skin Risks, benefits and alternatives to shave biopsy were discussed with the patient. Verbal consent obtained. Location: L back Skin prep: Alcohol Anesthesia: Sensorcaine/bupivacaine with epinephrine Hemostasis: Aluminum Chloride Dressing and wound care discussed. Patient agrees to phone call for results and message if not available. Héctor Swenson MD [facility] Dermatology Resident, PGY-2 TURNER Associated attestation - Jaun Mascorro MD - 10/04/2022 2:47 PM AXLE TURNER A procedure was performed. I was present for the pollard and critical portions of any procedures performed and was readily, immediately available for the remainder of the procedure at all times. Jaun Mascorro MD documented in this encounter Plan of Treatment Not on file documented as of this encounter Procedures Procedure Name Priority Date/Time Associated Diagnosis Comments NJ TANGNTL BX SKIN SINGLE LES Routine 10/02/2022 1:47 PM AXLE TURNER Neoplasm of uncertain behavior of skin DERMATOPATHOLOGY Routine 10/02/2022 3:33 AM AXLE TURNER Neoplasm of uncertain behavior of skin documented in this encounter Results * NJ TANGNTL BX SKIN SINGLE LES (10/02/2022 1:47 PM AXLE TURNER) Narrative Jaun Mascorro MD - 10/02/2022 1:47 PM AXLE TURNER Héctor Swenson MD ? 10/02/2022 ??1:48 PM Risks, benefits and alternatives to shave biopsy were discussed with the patient. Verbal consent obtained. Location: L back Skin prep: Alcohol Anesthesia: ??Sensorcaine/bupivacaine with epinephrine Hemostasis: Aluminum Chloride Dressing and wound care discussed. Patient agrees to phone call for results and message if not available. Héctor Swenson MD [facility] Dermatology Resident, PGY-2 Jaun Mascorro MD PROCEDURE/MINOR SURG ICAL ORDERABLES * DERMATOPATHOLOGY (10/02/2022 3:33 AM AXLE TURNER) Case Report Dermatopathology Report ? Case: [id number] ? Authorizing Provider: ??Jaun Mascorro MD ? Collected: ? 10/02/2022 03:33 AM ? Ordering Location: ? [facility] ?Received: ?10/05/2022 06:01 AM ? Dermatology ? Pathologist: ? Fabienne Fisher MD ? Specimen: ?Skin, left back ? 3 6:30 PM [facility] Final Diagnosis Specimen A. SKIN, left back: COMBINED NEVUS (BANAL & BLUE) (D22.9) 3 6:30 PM [facility] Clinical History Dysplastic nevus vs intradermal nevus; r/o melanoma 3 6:30 PM [facility] Gross Description Specimen A: Received is one formalin filled container labeled with the patient's name and designated left back. The specimen consists of a shave biopsy measuring 10x7x2 mm. Jar 0. 3 6:30 PM [facility] Microscopic Description Specimen A. SKIN, left back: Within the dermis, there are oval and dendritic shaped melanocytes and melanophages. There are also nests of round and oval melanocytes. 3 6:30 PM [facility] Disclaimer An external and internal positive and negative controls are appropriate for the histochemical, immunohistochemical and immunofluorescence stain(s) in this case (if any), except where stated explicitly. The performance characteristics of the stain(s) cited in this report were developed and its performance characteristic determined by the Dermatopathology Laboratory at [facility], directed by Dr. Buddy Fisher. These tests need not be, and therefore are not, approved by the [place] Food and Drug Administration. The tests are used for clinical purposes. Billing Codes Specimen Charges Stain Charges 28271 1 3 6:30 PM [facility] Embedded Images 3 6:30 PM [facility] Pathology/Cytolo gy TISSUE SPECIMEN FROM SKIN / Unknown 10/02/2022 3:33 AM AXLE TURNER 10/05/2022 6:01 AM AXLE TURNER Jaun Mascorro MD LAB - PATHOLOGY/CYTO LOGY ORDERABLES DERMATOPATHOLOGY LABORATORY [facility] - Department of Dermatology [facility] [address] [place] [address], [address] [phone] documented in this encounter Visit Diagnoses Diagnosis Neoplasm of uncertain behavior of skin- Primary History of basal cell carcinoma (BCC) Multiple benign melanocytic nevi of upper and lower extremities and trunk Lentigines Other dyschromia Seborrheic keratosis Donahue angioma Nevus, non-neoplastic Hammer toes of both feet Bunion Scar Scar condition and fibrosis of skin documented in this encounter Care Teams Piano Player Relationship Specialty Start Date End Date Blake Lindsey MD [address] [place] [address] PCP - General 05/20/16 documented as of this encounter
--- OUTSIDE RECORDS SUMMARY | 2024-07-29 17:20 | XMS_ITS | Encounter Summary ---
Author Organization [facility] Health Address [address] [place] [address] Care Team Providers Care Pipeline Construction Inspector Name Role Phone Blake Lindsey MD Primary Care Provider [phone] Encounter Details Date Type Department Care Team (Late st Contact Info) Description 07/08/2022 8:45 AM CATTYMAN Office Visit [facility] [place] [id number] Shant Solomon MD [address] [place] [id number] Parotid mass (Primary Dx); Nasal crusting; Nasal congestion Social History Tobacco Use Types Packs/Day Years [...] Sign Reading Time Taken Comments Blood Pressure 102/71 07/08/2022 8:52 AM CATTYMAN Pulse 87 07/08/2022 8:52 AM CATTYMAN Temperature - - Respiratory Rate 20 07/08/2022 8:52 AM CATTYMAN Oxygen Saturation - - Inhaled Oxygen Concentration - - Weight 88 kg (194 lb) 07/08/2022 8:52 AM CATTYMAN Height - - Body Mass Index 34.92 06/09/2022 2:15 PM CATTYMAN documented in this encounter Functional Status Functional [...] No 01/11/2019 documented as of this encounter Progress Notes * Sharan Mike MD - 07/08/2022 8:59 AM CST CC: No chief complaint on file. Referred by Dr. Peralta HPI: Lakeisha Alejandra is a 51 year old female PMH significant for asthma, COPD, HLD, HECTOR, Hodgkin's lymphoma, TMJ seen in consultation for left parotid/periparotid node and pain. 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 She feels like it has grown in size. She denies unplanned weight loss, neck mass, otalgia, voice change, odynophagia, dysphagia, or hemoptysis, fevers, chills, or night sweats. She has not tried any medications or conservative therapies for this yet. Denies exacerbating or alleviating factors. Pain is a mild, achy or tender pain which is isolated to the left side. Medical History: Past Medical History: Past Medical History: Diagnosis Date ??? Abnormal [...] ??? Wears glasses 07/18/2021 Past Surgical History: Past Surgical History: Procedure Laterality Date ??? Back Surgery 2014 fell and broke rods-another fusion ??? BIOPSY 2020 neck lymph ??? HX SPINAL FUSION 2012 ??? Knee Arthroscopy Left 2007 ??? Knee Arthroscopy Right 2008 ??? LUTHER TOOTH EXTRACTION 2012 all Medications: Current Outpatient Medications Medication Sig ??? albuterol (PROVENTIL;VENTOLIN) (2.5 MG/3ML) 0.083% nebulizer solution INHALE 3 ML BY NEBULIZATION 3 TIMES DAILY Reasons: Disease Involving Spasms of the Bronchus (Patient taking differently: Inhale 2.5 (two and one-half) mg by mouth 3 times daily as needed for Shortness of Breath or Wheezing INHALE 3 ML BY NEBULIZATION 3 TIMES DAILY Reasons: Disease Involving Spasms of the Bronchus) ??? ascorbic acid (VITAMIN C) 500 MG tablet Take 1 (one) tablet by mouth once daily Take 1 tablet at the same time as your ferrous sulfate (iron tablet). ??? atorvastatin (LIPITOR) 10 MG tablet Take [...] TAKE AT TGHE SAME TIME YOURVITAMIN TABLET ??? fluticasone propionate (FLONASE) 50 MCG/ACT nasal spray [place] 2 sprays into each nostril once daily ??? furosemide (LASIX) 20 MG tablet Take 1 tablet by mouth once daily Reasons: Edema ??? gabapentin (NEURONTIN) 300 MG capsule Take [...] nares (Patient not taking: Reported on 08/26/2021) ??? NYSTOP [id number] UNIT/GM powder Apply 1 Dose to affected area as directed ??? omeprazole (PRILOSEC) 20 MG capsule Take 20 mg by mouth once daily ??? ondansetron (ZOFRAN) 4 MG tablet Take 4 mg by mouth as needed for Nausea/Vomiting (Patient not taking: Reported on 07/08/2022) ??? potassium chloride ER (KLOR-CON) 20 MEQ tablet Take 20 mEq by mouth once daily ??? prazosin (MINIPRESS) 1 MG capsule Take 1 mg by mouth as directed ??? QUEtiapine (SEROQUEL) 100 MG tablet Take 1 tablet by mouth at bedtime Reasons: Major DepressiveDisorder ??? QUEtiapine (SEROQUEL) 200 MG tablet Take 150 mg by mouth at bedtime (Patient not taking: Reported on 07/08/2022) ??? spironolactone (ALDACTONE) 25 MG tablet Take 1 tablet by mouth once daily ??? SUMAtriptan (IMITREX) 50 MG tablet Take 1 tablet by mouth once as needed for Migraine Maximum daily dose: 200mg/24 hours Reasons: Migraine Headache ??? traZODone (DESYREL) 50 MG tablet Take 50 mg by mouth nightly as needed for Insomnia ??? TRELEGY ELLIPTA 100-62.5-25 MCG/INH Inhale 1 puff by mouth every 6 hours as needed ??? Vitamin D3 (Cholecalciferol) 50 MCG (2000 UT) capsule TAKE 1 CAPSULE BY MOUTH ONCE DAILY ??? XTAMPZA ER 9 MG capsule Take 9 mg by mouth 2 times daily No current facility-administered medications for this visit. Allergies: Allergies Allergen Reactions ??? Amoxicillin Rash ??? Penicillins Rash ??? Codeine Other Passes out, Passes out ??? Epinephrine Other When injected in mouth for dental procedures, makes extremities go numb Family History: Negative for easy bruising/bleeding, problems with anesthesia, or head/neck cancer. Past Social History: Ms. Alejandra is unaccompanied. 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 Tobacco: Smoking: <10 pack-years (on and off for 10 years), currently 0 PPD (quit in 1997). No other tobacco products Past/current alcohol use is social. Review of Systems: All review of systems negative, except for as per HPI. Exam: Vitals: 07/08/22 0852 BP: 102/71 Pulse: 87 Resp: 20 Weight: 194 lb (88 kg) General: Awake and alert in no apparent [...] present Neurologic: Cranial nerves III-XII grossly intact Imaging: CT Neck personally reviewed: Stable appearance of the 2 separate hyperdense/enhancing lesions in the superficial lobe of left parotid gland compared to prior scan. Pathology: 11/04/20 - Lymph node, left parotid, US-guided FNA: - Neoplasm: Benign (see comment). ?? Lymph node, left level 2B 'deep left cervical', US-guided FNA: - Mixed hematopoietic elements with some atypical forms (see comment). Assessment/Plan: 1. Left intraparotid node: though there is a tender swelling around the nodule, its size is stable from prior exam. We discussed treatment options including observation with conservative therapy including warm or cold compresses, NSAIDs, avoidance of irritating the area vs. repeat biopsy vs. eventual removal. She would like to proceed with conservative management for now and may reconsider if hersymptoms change. 2. Septal perforation: after debridement of crusting from the septum, she has a small anterior septal perforation without obvious risk factors (denies intranasal drug use, no autoimmune history). We will have her continue her nasal regimen of nasal saline irrigations and keeping the nose moist. FU with Dr. Solomon in 6 months. Sharan Mike MD Otolaryngology-Head and Neck Surgery 07/08/22 YMAN Associated attestation - Shant Sloomon MD - 07/08/2022 10:53 AM CATTYMAN Attending Physician Supervisory Note I personally interviewed and examined the patient and agree with the Resident above. 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 She is felt this is more prominent, swollen, and tender over the past 6 months. Recent imaging last month shows essentially no change from her exam 1 year ago. She has been several years now withoutany evidence of lymphoma recurrence. We discussed repeat biopsy versus excision, however at this time I recommend observation and treating conservatively symptomatically. We will reassess in 6 months. If she would like a biopsy done we can arrange that to be done here. Chronic nasal crusting, epistaxis, and newly found septal perforation. No obvious etiology from history or other exam findings, however she does have a history of MRSA infections elsewhere. We discussed surgical closure, septal button, or continued conservative management. She would like to continue with conservative management at this time. I was present for all procedures during this visit. Shant Solomon MD documented in this encounter Procedure Notes * Sharan Mike MD - 07/08/2022 9:40 AM CSTAssociated Order(s): PROC SINUS ENDOSCOPY Procedure(s): ME ENDO NASAL SINUS BX POLYP DEBRID BRENDAN Pre-Procedure Diagnose(s): Nasal crusting; Nasal congestion Procedure: Rigid Nasal Endoscopy Anesthesia: Bilateral nasal cavities sprayed with lidocaine and neosynephrine Detail: Rigid nasal endoscopy was performed bilaterally. The septum was deviated to the right. The bilateral nasal cavity showed bilateral inferior turbinate hypertrophy, nasal crusting which was removed with suctions and instruments. Removal of the crusting revealed a small septal perforation beneath. The patient tolerated the procedure well. The attending was present for and actively participated in all critical portions of the procedure. YMAN documented in this encounter Plan of Treatment Not on file documented as of this encounter Procedures Procedure Name Priority Date/Time Associated Diagnosis Comments ME ENDO NASAL SINUS BX POLYP DEBRID BRENDAN Routine 07/08/2022 9:40 AM CATTYMAN Nasal crusting Nasal congestion documented in this encounter Results * ME ENDO NASAL SINUS BX POLYP DEBRID BRENDAN (07/08/2022 9:40 AM CATTYMAN) Narrative Sharan Mike MD - 07/08/2022 9:40 AM CATTYMAN Sharan Mike MD ? 07/08/2022 10:11 AM Procedure: Rigid Nasal Endoscopy Anesthesia: Bilateral nasal cavities sprayed with lidocaine and neosynephrine Detail: ??Rigid nasal endoscopy was performed bilaterally. The septum was deviated to the right. The bilateral nasal cavity showed bilateral inferior turbinate hypertrophy, nasal crusting which was removed with suctions and instruments. Removal of the crusting revealed a small septal perforation beneath. The patient tolerated the procedure well. The attending was present for and actively participated in all critical portions of the procedure. Shant Solomon MD PROCEDURE/MINOR SURG ICAL ORDERABLES documented in this encounter Visit Diagnoses Diagnosis Parotid mass- Primary Swelling, mass, or lump in head and neck Nasal crusting Other diseases of nasal cavity and sinuses Nasal congestion Other diseases of nasal cavity and sinuses documented in this encounter Care Teams Pipeline Construction Inspector Relationship Specialty Start Date End Date Blake Lindsey MD [address] [place] [address] PCP - General 05/20/16 documented as of this encounter
--- OUTSIDE RECORDS SUMMARY | 2024-07-29 17:20 | XMS_ITS | Encounter Summary ---
Author Organization [facility] Health Address [address] [facility] [place] [address] Care Team Providers Care Flight Engineer Inspector Name Role Phone Blake Lindsey MD Primary Care Provider [phone] Encounter Details Date Type Department Care Team (Latest Contact Info) Description 05/12/2024 Travel Social History Tobacco Use Types Packs/Day [...] on filedocumented in this encounter Care Teams Flight Engineer Inspector Relationship Specialty Start Date End Date Blake Lindsey MD [address] [place] [address] PCP - General 05/20/16 documented as of this encounter
--- OUTSIDE RECORDS SUMMARY | 2024-07-29 17:20 | XMS_ITS | Encounter Summary ---
Author Organization [facility] Health Address [address] [facility] [place] [address] Care Team Providers Care Sole Molder Name Role Phone Blake Lindsey MD Primary Care Provider [phone] Reason for Visit * Reason Comments Refill Request Encounter Details Date Type Department Care Team (Late st Contact Info) Description 04/02/2023 Refill [facility] [place] [id number] Lowell Pop MD [address] [facility]MON[facility] [address] Refill Request Social History Tobacco Use Types Packs/Day Years [...] encounter Miscellaneous Notes * Telephone Encounter - Lowell Pop MD - 04/02/2023 3:54 PM CDT Iron prescription refill denied. Patient needs appointment. Not seen since Sep 2021 documented in this encounter Plan of Treatment Not on file documented as of this encounter Visit Diagnoses Diagnosis Iron deficiency anemia, unspecified iron deficiency anemia type documented in this encounter Care Teams Sole Molder Relationship Specialty Start Date End Date Blake Lindsey MD [address] [place] [address] PCP - General 05/20/16 documented as of this encounter
--- OUTSIDE RECORDS SUMMARY | 2024-07-29 17:20 | XMS_ITS | Encounter Summary ---
Author Organization [facility] Health Address [address] [facility] [place] [address] Care Team Providers Care Cambering Machine Operator Name Role Phone Blake Lindsey MD Primary Care Provider [phone] Encounter Details Date Type Department Care Team (Latest Contact Info) Description 06/09/2022 Travel Social History Tobacco Use Types Packs/Day [...] on filedocumented in this encounter Care Teams Cambering Machine Operator Relationship Specialty Start Date End Date Blake Lindsey MD [address] [place] [address] PCP - General 05/20/16 documented as of this encounter
--- OUTSIDE RECORDS SUMMARY | 2024-07-29 17:20 | XMS_ITS | Encounter Summary ---
Author Organization [facility] Health Address [address] [facility] [place] [address] Care Team Providers Care Field Staff Name Role Phone Blake Lindsey MD Primary Care Provider [phone] Encounter Details Date Type Department Care Team (Latest Contact Info) Description 04/11/2024 Travel Social History Tobacco Use Types Packs/Day [...] on filedocumented in this encounter Care Teams Field Staff Relationship Specialty Start Date End Date Blake Lindsey MD [address] [place] [address] PCP - General 05/20/16 documented as of this encounter
--- OUTSIDE RECORDS SUMMARY | 2024-07-29 17:20 | XMS_ITS | Encounter Summary ---
Author Organization [facility] Health Address [address] [place] [address] Care Team Providers Care Oven Press Tender Name Role Phone Blake Lindsey MD Primary Care Provider [phone] Encounter Details Date Type Department Care Team (Latest Contact Info) Description 05/22/2024 Travel Social History Tobacco Use Types Packs/Day [...] on filedocumented in this encounter Care Teams Oven Press Tender Relationship Specialty Start Date End Date Blake Lindsey MD [address] [place] [address] PCP - General 05/20/16 documented as of this encounter
--- OUTSIDE RECORDS SUMMARY | 2024-07-29 17:20 | XMS_ITS | Encounter Summary ---
Author Organization [facility] Health Address [address] [facility] [place] [address] Care Team Providers Care Fire Protection Engineering Technician Name Role Phone Blake Lindsey MD Primary Care Provider [phone] Encounter Details Date Type Department Care Team (Late st Contact Info) Description 01/23/2024 Orders Only [facility] [address] [place] [address] Ashish Carrasco MD [address] [facility] [place] [address] Hodgkin lymphoma, unspecified Hodgkin lymphoma type, unspecified [...] as of this encounter Miscellaneous Notes * Addendum Note - Ashish Carrasco MD - 04/23/2024 9:02 PM CDTAddended by: ASHISH CARRASCO on: 04/23/2024 09:02 PM Modules accepted: Orders documented in this encounter Plan of Treatment Scheduled Orders Name Type Priority Associated Diagnoses Orde r Schedule COMPREHENSIVE METABOLIC PANEL Lab STAT Hodgkin lymphoma, unspecified Hodgkin lymphoma type, unspecified body region (HCC) 1 Occurrences starting 01/23/2024 until 02/16/2025 documented as of this encounter Visit Diagnoses Diagnosis Hodgkin lymphoma, unspecified Hodgkin lymphoma type, unspecified body region (HCC)- Primary documented in this encounter Care Teams Fire Protection Engineering Technician Relationship Specialty Start Date End Date Blake Lindsey MD [address] [place] [address] PCP - General 05/20/16 documented as of this encounter
--- OUTSIDE RECORDS SUMMARY | 2024-07-29 17:20 | XMS_ITS | Encounter Summary ---
Author Organization [facility] Health Address [address] [facility] [place] [address] Care Team Providers Care Gas Utility Worker Name Role Phone Blake Lindsey MD Primary Care Provider [phone] Reason for Visit * Reason Onset Date Comments Question 12/21/2023 Encounter Details Date Type Department Care Team (Late st Contact Info) Description 12/21/2023 Telephone [facility] [address] [place] [address] Radhika Cummings, RN Question Social History Tobacco Use Types Packs/Day [...] encounter Miscellaneous Notes * Telephone Encounter - Radhika Cummings RN - 12/21/2023 1:30 PM CDT Call received from patient letting us know she is seeing Dr. Solomon (ENT) tomorrow due to a new lumpthat developed under her jaw bone last week. Message sent to Dr. Peralta per pt request. documented in this encounter Plan of Treatment Not on file documented as of this encounter Visit Diagnoses Not on filedocumented in this encounter Care Teams Gas Utility Worker Relationship Specialty Start Date End Date Blake Lindsey MD [address] [place] [address] PCP - General 05/20/16 documented as of this encounter
--- OUTSIDE RECORDS SUMMARY | 2024-07-29 17:20 | XMS_ITS | Encounter Summary ---
Author Organization [facility] Health Address [address] [address] Care Team Providers Care Mechanical Engineering Teacher Name Role Phone Blake Lindsey MD Primary Care Provider [phone] Reason for Visit * Reason Onset Date Comments Pain Hand Pain Hand 10/07/2022 Encounter Details Date Type Department Care Team (Late st Contact Info) Description 10/07/2022 9:00 AM GRADES 1 THRU 5 TEACHER Office Visit [facility] - [facility] [address] [facility] [place] [address] Jennifer Dia, PADishaC [address] [place] [id number] CMC arthritis (Primary Dx); Trigger finger of left thumb Social History Tobacco Use Types Packs/Day Years [...] this encounter Patient Instructions * Patient Instructions* Shannan Duke RN - 10/07/2022 9:35 AM GRADES 1 THRU 5 TEACHER Today you received a steroid (or cortisone) injection in the clinic. This consisted of 2% lidocaine(numbing medicine) and kenalog (steroid). It takes the steroid 3-5 days to start working and up to two weeks to get the full effect. If needed, apply ice at the injection site for 20 minutes at a time, 3 to 5 times per day, for any soreness after the injection. ES 1 THRU 5 TEACHER documented in this encounter Progress Notes * Jennifer Dia PA-C - 10/07/2022 9:41 AM CST ORTHOPEDIC SURGERY / HAND SURGERY / MICROSURGERY OUTPATIENT CLINICAL OFFICE VISIT Lakeisha Alejandra 51 year old female CSN: [id number] Date of service: 10/07/2022 Chief Complaint BILATERAL thumb pain HPI Ms. Alejandra is a 51 year old female who presents for evaluation of Bilateral thumb pain L>R for3 months. Pain is located at the base of the thumb and is described as achy and sometimes sharp. Pain is constant with exacerbations. Symptoms worsen with gripping or grasping objects. Symptoms are relieved with rest. Patient has tried ice, never had injections or bracing. 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 Pain How did this pain/injury begin? Don???t know When did your pain/injury start? Couple months Does any other area/part of your body hurt? Left hand pad Active Worker's Comp claim? No Pain level at rest 1 Pain level with activity 7 What makes your pain worse? Touching pads of hands Treatments tried Other If Other , please explain those treatments here. None Currently employed? Yes Smoking status Previous Smoker Alcohol intake? No Taking opioid/narcotic? Yes Patient-Reported Satisfaction 10/07/2022 Current state satisfactory? No Prior treatment? No Function since treatment - Currently taking narcotics? Yes PROMIS Upper Extremity 10/05/2022 PROMIS UE Function Score 36 (moderate dysfunction) PROMIS Pain Interference 10/05/2022 08/05/2022 PROMIS PI Score 56 (mild) 60 (mild) Patient-entered QuickDASH 10/07/2022 Laterality Left QuickDASH Score 45.45 Review of Systems 12 systems review positive for thumb pain; otherwise all other organ systems are negative. PMHx Past Medical History: Diagnosis Date ??? Abnormal [...] left shoulder 09/09/2016 ??? Wears glasses 07/18/2021 PSHx Past Surgical History: Procedure Laterality Date ??? Back Surgery 2014 fell and broke rods-another fusion ??? BIOPSY 2020 neck lymph ??? HX SPINAL FUSION 2012 ??? Knee Arthroscopy Left 2007 ??? Knee Arthroscopy Right 2008 ??? LUTHER TOOTH EXTRACTION 2012 all Social Hx Social History Tobacco Use ??? Smoking status: Former Packs/day: 1.00 Years: 14.00 Pack years: 14.00 Types: Cigarettes Start date: 1984 Quit date: 11/30/1997 Years since quittin.8 ??? Smokeless tobacco: Never Substance Use Topics ??? Alcohol use: Yes Alcohol/week: 0.0 - 1.0 standard drinks Comment: once a month Family Hx family history includes CAD (Coronary Artery Disease) in her father and mother; Cancer in her father; Diabetes in her mother; Heart Disease in her father and mother; Hypertension in her father and mother; None Known in her brother. Allergies Allergies Allergen Reactions ??? Amoxicillin Rash ??? Penicillins Rash ??? Codeine Other Passes out, Passes out ??? Epinephrine Other When injected in mouth for dental procedures, makes extremities go numb Patient metabolizes medication quickly Medications Current Outpatient Medications Medication ??? albuterol (PROVENTIL;VENTOLIN) (2.5 MG/3ML) 0.083% nebulizer solution ??? ascorbic acid (VITAMIN C) 500 MG tablet ??? atorvastatin (LIPITOR) 10 MG tablet ??? baclofen (LIORESAL) 20 MG tablet ??? buPROPion XL 24hr (WELLBUTRIN-XL) 150 MG tablet ??? cetirizine (ZYRTEC) 10 MG tablet ??? escitalopram (LEXAPRO) 20 MG tablet ??? FeroSul 325 (65 Fe) MG tablet ??? furosemide (LASIX) 20 MG tablet ??? gabapentin (NEURONTIN) 300 MG capsule ??? lubiprostone (Amitiza) 24 MCG capsule ??? montelukast (SINGULAIR) 10 MG tablet ??? Movantik 25 MG tablet ??? mupirocin (BACTROBAN) 2 % ointment ??? Nurtec 75 MG tablet ??? NYSTOP 159149 UNIT/GM powder ??? omeprazole (PRILOSEC) 20 MG capsule ??? ondansetron (ZOFRAN) 4 MG tablet ??? potassium chloride ER (KLOR-CON) 20 MEQ tablet ??? prazosin (MINIPRESS) 1 MG capsule ??? QUEtiapine (SEROQUEL) 100 MG tablet ??? QUEtiapine (SEROquel) 50 MG tablet ??? spironolactone (ALDACTONE) 25 MG tablet ??? SUMAtriptan (IMITREX) 50 MG tablet ??? traZODone (Desyrel) 100 MG tablet ??? traZODone (DESYREL) 50 MG tablet ??? TRELEGY ELLIPTA 100-62.5-25 MCG/INH ??? Vitamin D3 (Cholecalciferol) 50 MCG (2000 UT) capsule ??? Xtampza ER 13.5 MG capsule Current Facility-Administered Medications Medication ??? lidocaine HCl (PF) (Xylocaine MPF) 2 % injection ??? lidocaine HCl (PF) (Xylocaine MPF) 2 % injection ??? lidocaine HCl (PF) (Xylocaine MPF) 2 % injection ??? triamcinolone acetonide (Kenalog-40) injection 20 mg ??? triamcinolone acetonide (Kenalog-40) injection 20 mg ??? triamcinolone acetonide (Kenalog-40) injection 20 mg Vitals There were no vitals taken for this visit. Physical Exam GENERAL APPEARANCE: alert, cooperative, no distress SKIN: Inspection and palpation of the skin of the upper extremities without erythema, edema, rashes, or lesions. VASCULAR: Bilateral upper extremities: palpable radial pulse, capillary refill <2 seconds. BILATERAL HAND EXAMINATION: General inspection of the bilateral hand demonstrates no gross deformity with fingers in a neutral position. Swelling and tenderness to palpation is present over the 1st CMCJ. Intact sensation to light touch R/M/U nerve distributions. Pain with flexion of thumb. Remaining MCP, PIP, DIP joints demonstrate overall normal alignment with full functional range of motion. Intact ulnar, AIN, PIN. There is not scissoring and malrotation on making a fist. Positive grind test. Emilie negative. Tender to LEFT thumb A1 sav. Imaging X-rays of bilateral hand obtained today and personally interpreted by me demonstrate degenerative changes at bilateral 1st CMCJ Assessment and Plan 51 year old female presenting with bilateral basilar thumb arthritis and left thumb stenosing flexor tenosynovitis. Discussed options and patient has elected to proceed with corticosteroid injection.Patient is in agreement with this plan and all questions were answered. 1. Ms. Alejandra was counseled as to her diagnosis and demonstrated understanding 2. Recommendations: bilateral 1st CMC and left trigger thumbcorticosteroid injection- see separate note for detail 3. Home OT exercises demonstrated. 4. May wear cool comfort brace as needed, especially with repetitive activities. 5. Restrictions: None; activities as tolerated 6. Follow up: 3 months 7. Discussed possible future surgical intervention including CMC denervation and arthroplasty with ligament repair vs reconstruction. 8. She will call in the interim with any questions or concerns. XR needed at follow up: No Jennifer Dia PA-C [facility] with Dr. Venancio De and Dr. Del Chisholm 10/07/2022 9:41 AM ES 1 THRU 5 TEACHER * Shannan Duke RN - 10/07/2022 9:15 AM CST Pt presents with B thumb pain and R wrist pain with lifting Pt pain 03/11 ES 1 THRU 5 TEACHER documented in this encounter Procedure Notes * Jennifer Dia PA-C - 10/07/2022 9:40 AM CST Lakeisha Alejandra is a 51 year old female patient. Procedures Orthopaedic Hand Surgery Procedure Note Diagnosis: right thumb CMC joint OA Procedure: Injection of corticoid steroid into the right thumb CMC joint Indications: Lakeisha Alejandra is a 51 year old female who has right thumb pain in the setting of CMC joint OA. Procedure Details: The patient was informed of their condition, and the potential benefits of injection of steroid. The patient was counseled as to the risks of the procedure including the risk of skin discoloration and elevated sugar levels. The patient was agreeable and elected to proceed. The patient's right hand was placed onto an appropriately draped procedure table and the area was prepped with alcohol. Next, ethyl chloride spray was applied to numb the skin and using a 25 Ga needle, a solution of 0.5mL of 1% lidocaine and 0.5mL of kenalog 40mg/mL was placed into the Right thumb CMC joint. The needle was removed and the needle site dressed with a semi-sterile bandage. The patient tolerated the procedure well. Orthopaedic Hand Surgery Procedure Note Diagnosis: left thumb CMC joint OA Procedure: Injection of corticoid steroid into the left thumb CMC joint Indications: Lakeisha Alejandra is a 51 year old female who has left thumb pain in the setting of CMCjoint OA. Procedure Details: The patient was informed of their condition, and the potential benefits of injection of steroid. The patient was counseled as to the risks of the procedure including the risk of skin discoloration and elevated sugar levels. The patient was agreeable and elected to proceed. The patient's left hand was placed onto an appropriately draped procedure table and the area was prepped with alcohol. Next, ethyl chloride spray was applied to numb the skin and using a 25 Ga needle, a solution of 0.5mL of 1% lidocaine and 0.5mL of kenalog 40mg/mL was placed into the Left thumb CMC joint. The needle was removed and the needle site dressed with a semi-sterile bandage. The patient tolerated the procedure well. Orthopaedic Hand Surgery Procedure Note Diagnosis: left Trigger Finger Procedure: Injection of corticosteroid into the left 1st finger tendon sheath Indications: Lakeisha Alejandra is a 51 year old female who has a left 1st trigger finger. Procedure Details: The patient was informed of their condition, and the potential benefits of injection of steroid. The patient was counseled as to the risks of the procedure including the risk of skin discoloration and elevated sugar levels. The patient was agreeable and elected to proceed. The patient's left hand was placed supine onto an appropriately draped procedure table and the area was prepped with alcohol Next, ethyl chloride spray was applied to numb the skin and using a 25 Ga needle,a solution of 0.5mL of 1% lidocaine and 0.5mL of kenalog 40mg/mL was placed at the level of the A1 sav and injected into the tendon sheath of the 1st finger. The needle was removed and the needle site dressed with a semi-sterile bandage. The patient tolerated the procedure well. ES 1 THRU 5 TEACHER documented in this encounter Plan of Treatment Not on file documented as of this encounter Visit Diagnoses Diagnosis CMC arthritis- Primary Unspecified arthropathy, hand Trigger finger of left thumb documented in this encounter Administered Medications Inactive Administered Medications - up to 3 most recent administrations Medication Order MAR Action Action Date Dose Rate Site lidocaine HCl (PF) (Xylocaine MPF) 2 % injection Infiltration, ONCE, 1 dose, On Wed10/07/22 at 1000 $ Given 10/07/2022 9:50 AM GRADES 1 THRU 5 TEACHER 0.5 mL Finger Right Hand lidocaine HCl (PF) (Xylocaine MPF) 2 % injection Infiltration, ONCE, 1 dose, On Wed10/07/22 at 1000 $ Given 10/07/2022 9:49 AM GRADES 1 THRU 5 TEACHER 0.5 mL Finger Left Hand lidocaine HCl (PF) (Xylocaine MPF) 2 % injection Infiltration, ONCE, 1 dose, On Wed10/07/22 at 1000 $ Given 10/07/2022 9:49 AM GRADES 1 THRU 5 TEACHER 0.5 mL Finger Left Hand triamcinolone acetonide (Kenalog-40) injection 20 mg 20 mg, Intra-Tendon Sheath , ONCE, 1 dose, On Wed10/07/22 at 1000, Shake well before using. $ Given 10/07/2022 9:51 AM GRADES 1 THRU 5 TEACHER 20 mg Finger Right Hand triamcinolone acetonide (Kenalog-40) injection 20 mg 20 mg, Intra-Tendon Sheath , ONCE, 1 dose, On Wed10/07/22 at 1000, Shake well before using. $ Given 10/07/2022 9:50 AM GRADES 1 THRU 5 TEACHER 20 mg Finger Left Hand triamcinolone acetonide (Kenalog-40) injection 20 mg 20 mg, Intra-Tendon Sheath , ONCE, 1 dose, On Wed10/07/22 at 1000, Shake well before using. $ Given 10/07/2022 9:50 AM GRADES 1 THRU 5 TEACHER 20 mg Finger Left Hand documented in this encounter Care Teams Mechanical Engineering Teacher Relationship Specialty Start Date End Date Blake Lindsey MD [address] [place] [address] PCP - General 05/20/16 documented as of this encounter
--- OUTSIDE RECORDS SUMMARY | 2024-07-29 17:20 | XMS_ITS | Encounter Summary ---
Author Organization [facility] Health Address [address] [facility] [place] [address] Care Team Providers Care Production Tech Name Role Phone Blake Lindsey MD Primary Care Provider Reason for Visit * Reason Onset Date Comments Appointment 08/25/2022 Encounter Details Date Type Department Care Team (Late st Contact Info) Description 08/25/2022 Telephone [facility] - [facility] [address] [place] [phone] Karina De La Vega Appointment Social History Tobacco Use Types Packs/Day Years [...] on filedocumented in this encounter Care Teams Production Tech Relationship Specialty Start Date End Date Blake Lindsey MD [address] [place] [address] PCP - General 05/20/16 documented as of this encounter
--- OUTSIDE RECORDS SUMMARY | 2024-07-29 17:20 | XMS_ITS | Encounter Summary ---
Author Organization [facility] Health Address [address] [place] [address] Care Team Providers Care Day Habilitation Supervisor Name Role Phone Blake Lindsey MD Primary Care Provider [phone] Reason for Visit * Reason Onset Date Comments Appointment 06/09/2022 Encounter Details Date Type Department Care Team (Late st Contact Info) Description 06/09/2022 Telephone [facility] [address] [place] [address] Stephanie Cardona MD [address] [place] [address] Appointment Social History Tobacco Use Types Packs/Day [...] encounter Miscellaneous Notes * Telephone Encounter - Martha Lezama - 06/09/2022 3:48 PM CST Pt has referral to be seen for Basal cell adenocarcinoma TIC OPERATOR documented in this encounter Plan of Treatment Not on file documented as of this encounter Visit Diagnoses Not on filedocumented in this encounter Care Teams Day Habilitation Supervisor Relationship Specialty Start Date End Date Blake Lindsey MD [address] [place] [address] PCP - General 05/20/16 documented as of this encounter
--- OUTSIDE RECORDS SUMMARY | 2024-07-29 17:20 | XMS_ITS | Encounter Summary ---
Author Organization [facility] Health Address [address] [place] [address] Care Team Providers Care Operations Advisor Name Role Phone Blake Lindsey MD Primary Care Provider Reason for Visit * Reason Comments Establish Care Spot on nose and sca lp Encounter Details Date Type Department Care Team (Late st Contact Info) Description 03/02/2023 3:20 PM CDT Office Visit [facility] - Dermatology [address] [place] [address], [facility] [place] [address] Jaun Mascorro MD [address] [place] [address] [place] [address] Multiple benign melanocytic nevi of upper and lower extremities and trunk (Primary Dx); Actinic skin damage; Lentigines; Seborrheic keratoses; Actinic keratosis; Inflamed seborrheic keratosis Social History Tobacco Use Types Packs/Day Years [...] this encounter Patient Instructions * Patient Instructions* Yoan Mendez MD - 03/02/2023 3:20 PM CDT Thank you for visiting the [facility] D[facility] today! Please continue the following instructionsas we discussed in clinic today: 1) On your skin exam today we froze some precancerous spots. The care instructions are attached below. 2) We also froze the irritated spot on your scalp 3) Below are our sun protection recommendations. Please return to clinic in 6 months Online scheduling is now available with your provider in this department. Please visit [email or web address] to schedule your next appointment online. SKIN CANCER PREVENTION: - We recommend DAILY sun protection with SPF 30 or above - Do monthly skin exams and examine your moles for any changes. - Alert us of any moles that are asymmetrical, have irregular borders, have more than one color, are larger than end of a pencil eraser, or has been changing over time. (These are the A-B-C-D-Es of Melanoma). - See below for sun screen recommendations. SUNSCREENS with UVA and UVB PROTECTION Sunlight consists of two types of light that can cause or worsen most skin problems: UVA (ultraviolet A) UVB (ultraviolet B) Brown spots, wrinkles Sunburn Aging Skin cancers Rosacea Tanning Less variation with seasons Strongest in summer All year round, All day strong Peak hours 10am to 2pm No rating system available Passes through glass and clouds Sunscreens that block both UVA and UVB light (broad spectrum) contain: Zinc Oxide (should contain at least 5% zinc oxide) - preferred ingredient Titanium Dioxide Tips/Suggestions SPF of 30 or higher (SPF rates UVB protection) Zinc Oxide or other UVA block such as Helioplex or Anthelios in product Remember there is no safe UV light...so there is no such thing as a safe suntan. Apply sunscreen daily (even in winter and on cloudy days) and reapply every 2 to 4 hours depending on activity. Approximately one ounce of sunscreen is necessary to adequately cover the entire body. Good brands include Ki WILLAMS, Skinmedica, Aveeno, Cetaphil, Cerave, Neutrogena, Vanicream and many others (at least SPF 30!). Our favorite brand is the one that you will wear! POST CRYOTHERAPY CARE Redness and swelling may occur within minutes of thawing. Avoid any trauma to the treated site. A clear blister or a blood blister may appear on the skin in the treated area within 12 to 48 hours. If the blister is painful, you may drain the blister using a sterile pin. To sterilize the pin, hold it over the flame of a match or wipe the tip with an alcohol-soaked cotton ball. Poke a hole in the blister and drain the fluid. Do not remove the skin of the blister; this blister acts as a bandagefor the area. After 24 hours, clean the areas twice a day with mild soap and water. Pat dry and apply petroleum jelly with a cotton swab. The petroleum jelly will help keep the area moist, help prevent a scab fromforming, and less the chance of infection. If you wish, you may cover the area with a bandage. Notify your physician if you have: Yellowish/greenish discharge from the treated area Increasing tenderness or pain Warmth of the area and/or fever over 101 F Red streaks up the arm or leg close to the treated area documented in this encounter Progress Notes * Jaun Mascorro MD - 03/02/2023 3:40 PM CDT I have seen and examined the patient with the resident and I agree with the findings and plan of care as documented by the resident. I confirm history, exam, assessment and plan with no exceptions/additions unless otherwise noted: Date of Service: 03/02/2023 Some spots to check . Scaly, rough spot nose Irritating lesion scalp Cryo Jaun Mascorro MD * Yoan Mendez MD - 03/02/2023 3:09 PM CDT Chief Complaint Patient presents with ??? Establish Care Spot on nose and scalp HPI: Lakeisha Alejandra a 52 year old female presents for Establish Care. LV: 10/02/2022 Concerns: 1. Patient has a new spot on her right nasal tip that she is concerned may be a precancerous spot. Patient also has an irritated spot on her central frontal scalp that gets irritated by her comb Personal history of skin cancer: - BCC (reported by pt) L parietal scalp, 01/2022, removed by plastic surgeon ([facility]) ROS: No other skin complaints Allergies and medications were reviewed and verified. Past medical history, social history and family history were reviewed. PE: ??? No acute distress. ??? Mood clear/affect appropriate. ??? Alert and oriented. ??? Mucous membranes moist, lips free of lesions. ??? Sclera anicteric, conjunctiva clear. Skin exam was conducted to include the: scalp, face, lips, lids/conjunctiva, ears, neck, chest, back, abdomen, right and left hands and forearms, right and left leg and feet, (FBSE) and was normal with the following exceptions: - Multiple 2-6 mm thompson brown macules and papules and skin colored papules on face, trunk and extremities - Multiple thompson to light brown macules on face, shoulders and arms - Many thompson to brown waxy/hyperkeratotic stuck on papules on trunk - pink scaly/gritty macules with poorly defined borders on the nasal dorsum = 1 in toto A/P: Lakeisha was seen today for establish care. Diagnoses and all orders for this visit: Actinic skin damage Actinic keratosis - Counseled on diagnosis, etiology, natural disease course- including pre- malignant nature of lesions and association with sun exposure - 1 [address]2; right nasal tip - Wound care instructions provided - Counseled on importance of daily sun protection (SPF 30+, UVA/UVB) and monthly self skin exams Lentigines -Marker of UVR damage -Increased risk for skin cancer -Advised routine skin monitoring -Wear daily OTC SPF 50+, Broad Spectrum Seborrheic keratoses - Benign, reassurance Multiple benign melanocytic nevi of upper and lower extremities and trunk - None atypical or more concerning than others on exam today - Counseled on importance of daily sun protection, and monthly self skin exams - Reviewed ABCDEs of melanoma - Advised sun protective behaviors and regular sun screen use - Annual FBSE Inflamed seborrheic keratosis - Discussed benign potential - Fully reviewed treatment options with patient including indications, risks, benefits, alternatives to LN2 - pt desires treatment - Cryo x 1 lesion, 6-7 second freeze time x 1 cycle; central frontal hairline - Wound care reviewed - Post cryo handout given RTC 6 months MDM based billing (click [employer] for U smart form; click [employer]Feed for [facility] TIME based billing). [employer] Billing Guide Yoan Mendez MD [facility] Dermatology Resident PGY4 documented in this encounter Procedure Notes * Yoan Mendez MD - 03/02/2023 3:25 PM CDTAssociated Order(s): PROC DESTRUCT BENIGN LESION NOT SKIN TAG Procedure(s): DE DESTRUCT BENIGN LESION, 1-14 Pre-Procedure Diagnose(s): Inflamed seborrheic keratosis Diagnosis and treatment options discussed. Cryotherapy (Liquid Nitrogen) to 1 lesion for 7 seconds each. Number of cycles: 1. Wound care reviewed. Associated attestation - Jaun Mascorro MD - 03/03/2023 4:50 PM CDT A procedure was performed. I was present for the pollard and critical portions of any procedures performed and was readily, immediately available for the remainder of the procedure at all times. Jaun Mascorro MD * Yoan Mendez MD - 03/02/2023 3:25 PM CDTAssociated Order(s): PROC DESTRUCTION OF PRE-MALIGNANT LESIONS Procedure(s): DE DESTROY PREMALIG LESION, 1ST LESION Pre-Procedure Diagnose(s): Actinic keratosis Diagnosis and treatment options discussed. Cryotherapy (Liquid Nitrogen) to 1 lesion for 4-6 seconds. Number of cycles: 1. Wound care reviewed. Associated attestation - Jaun Mascorro MD - 03/03/2023 4:50 PM CDT A procedure was performed. I was present for the pollard and critical portions of any procedures performed and was readily, immediately available for the remainder of the procedure at all times. Jaun Mascorro MD documented in this encounter Plan of Treatment Not on file documented as of this encounter Procedures Procedure Name Priority Date/Time Associated Diagnosis Comments DE DESTRUCT BENIGN LESION, 1-14 Routine 03/02/2023 3:25 PM CDT Inflamed seborrheic keratosis DE DESTROY PREMALIG LESION, 1ST LESION Routine 03/02/2023 3:25 PM CDT Actinic keratosis documented in this encounter Results * DE DESTRUCT BENIGN LESION, 1-14 (03/02/2023 3:25 PM CDT) Narrative Jaun Mascorro MD - 03/02/2023 3:25 PM CDT Yoan Mendez MD ? 03/02/2023 ??3:25 PM Diagnosis and treatment options discussed. Cryotherapy (Liquid Nitrogen) to 1 lesion for 7 seconds each. Number of cycles: 1. Wound care reviewed. Jaun Mascorro MD PROCEDURE/MINOR SURG ICAL ORDERABLES * DE DESTROY PREMALIG LESION, 1ST LESION (03/02/2023 3:25 PM CDT) Narrative Jaun Mascorro MD - 03/02/2023 3:25 PM CDT Yoan Mendez MD ? 03/02/2023 ??3:25 PM Diagnosis and treatment options discussed. Cryotherapy (Liquid Nitrogen) to 1 lesion for 4-6 seconds. Number of cycles: 1. Wound care reviewed. Jaun Mascorro MD PROCEDURE/MINOR SURG ICAL ORDERABLES documented in this encounter Visit Diagnoses Diagnosis Multiple benign melanocytic nevi of upper and lower extremities and trunk- Primary Actinic skin damage Other chronic dermatitis due to solar radiation Lentigines Other dyschromia Seborrheic keratoses Actinic keratosis Inflamed seborrheic keratosis documented in this encounter Care Teams Operations Advisor Relationship Specialty Start Date End Date Blake Lindsey MD [address] [place] [address] PCP - General 05/20/16 documented as of this encounter
--- OUTSIDE RECORDS SUMMARY | 2024-07-29 17:20 | XMS_ITS | Encounter Summary ---
Author Organization [facility] Health Address [address] [place] [address] Care Team Providers Care Merchandise Director Name Role Phone Blake Lindsey MD Primary Care Provider Reason for Visit * Reason Comments Lesions Encounter Details Date Type Department Care Team (Late st Contact Info) Description 05/12/2024 3:10 PM CDT Office Visit [facility] - Dermatology [address] [place] [address], [facility] [place] [address] Jaun Mascorro MD [address] [place] [address] [address] [place] [address] History of basal cell carcinoma (BCC) (Primary Dx); Seborrheic keratosis; Neoplasm of uncertain behavior of skin; Lentigines; Donahue angioma; Inflamed seborrheic keratosis; Sebaceous hyperplasia Social History Tobacco Use Types Packs/Day Years [...] this encounter Patient Instructions * Patient Instructions* Mera Vitale MD - 05/12/2024 3:21 PM CDT Liquid Nitrogen Treatment Liquid nitrogen is a cold, liquefied gas with a temperature of minus 195 degrees Celsius. It is used to freeze or destroy superficial skin growths such as warts and keratoses. Liquid nitrogen causes stinging and mild pain while the growth is being frozen and then thaws. After liquid nitrogen treatment your skin will become swollen and red; it may blister. Occasionallysome blood may leak into the blister causing it to turn black. This is a normal process and is no cause for concern. It is okay to puncture the blister with a sterile needle to relieve the pressure. Then a scab (crust) will form. Keep the area clean with mild soap and water daily. The crust will fall off by itself in one to four weeks. The skin growth will come off with the scab leaving healthy new skin. Hypopigmentation (increase in pigment color) can occur in darker skin patients. Usually, this discoloration resolves with time. You can wash your skin as usual and use makeup or other cosmetics if there are no open areas. If clothing irritates the area, cover it with a small band-aid. Over the counter pain medicines such as Tylenol can be taken if needed for soreness. Sometimes liquid nitrogen treatment fails. If the growth is not cured by liquid nitrogen within four weeks, please make a return appointment. You had a biopsy performed today. We will contact you with these results. This may take 7-10 days. See below for how to care for the site. WOUND CARE INSTRUCTIONS If you [...] leg close to the treated area SUNSCREENS UVA and UVB PROTECTION Sunlight consists of two types of light that can cause or worsen most skin problems: UVA (ultraviolet A) UVB (ultraviolet B) Brown spots Skin cancers Wrinkles Sunburn Aging Tanning Rosacea Less variation with seasons Strongest in summer All year round All day strong Peak hours 10am to 2pm No rating system available SPF rates UVB protection Passes through glass and clouds Sunscreens that block both UVA and UVB light contain: Zinc Oxide (should contain at least 4% zinc oxide) Titanium Dioxide Parsol or Avobenzone (additives improve stability of Avobenzone) There are other UVA blocking ingredients but they are not as complete as these three. Tips/Suggestions SPF of 30 or higher Zinc Oxide or other UVA block such as Helioplex or Anthelios in product Remember there is no safe UV light???so there is no such thing as a safe suntan. Apply sunscreen daily (even in winter and on cloudy days) and reapply every 2 to 4 hours depending on activity. Approximately one ounce (a shot glass) is necessary to adequately cover the entire body. Approximately one teaspoon is necessary to adequately cover the face. Follow up in 1 year documented in this encounter Progress Notes * Jaun Mascorro MD - 05/12/2024 3:14 PM CDT I have seen and examined the patient with the resident and I agree with the findings and plan of care as documented by the resident. Please see note for further details. I was always immediately available. I confirm history, exam, assessment and plan with no exceptions/additions unless otherwise noted: CC: lesion HPI: Painful lesions scalp, jorge w/ combing One on L side has been cryo before R chest lesion can be painful Has hx of: -BCC (reported by pt) L parietal scalp exc plastics ([facility] Plastic [facility]) January 2022 Has hx actinic keratoses (AK), jorge face. Usually not painful. Focal lesions usually respond well tocryo. Has hx brown spots, jorge trunk. Nevi, lentigines, SK. Most present for years. Occ itchy lesions. Has had cryo ILK jorge scalp. No active trt for brown spots. Bx 03/10/16: L scalp: SK Bx 10/02/22: L back: combined nevus: (blue & banal) Other derm hx: Has hx eruption x [...] extr including nails and digits, chest, back, examined and unremarkable unless otherwise noted below: -well-healed scar(s) in area(s) of prior skin ca as described above -waxy, well-defined, stuck on papules on the extr, trunk, scalp -thompson to brown well defined macules on shoulders -brown macules and papules on trunk and extr, but none with markedly different appearance from the others unless otherwise noted -L frontal scalp: thompson-brown verrucous plaque Assessment/Plan Neoplasm of unspecified nature/uncertain beh: -shave bx -biopsy is the only billed procedure on biopsied lesions; no other billable procedures are associated with biopsied lesions, including destruction Inflamed/irritated seborrheic keratosis (ISK) -cryo x 5-10 sec freeze time -lesions trt: 3: scalp, R chest -blister care discussed, review expectations Hx NMSC (non-melanoma skin ca) as described [...] symptomatic RTC 1 year Jaun Mascorro MD * Mera Vitale MD - 05/12/2024 3:10 PM CDT Chief Complaint Patient presents with Lesions HPI: Lakeisha Alejandra is a 53 year old female who presents for follow up. LV (03/2023) Concerns: 1. Spots in the scalp that are tender. The one in the left frontal scalp is tender. They all get caught in her comb. She is concerned they are BCC. 2. She has a spot in her left eyebrow she has noticed. Personal history of skin cancer: - BCC (reported by pt) L parietal scalp, 01/2022, removed by plastic surgeon ([facility] Plastic surgery) Physical exam: Skin exam was conducted to include the scalp, face, lips, conjunctiva, ears, neck, forearms, and hands and was notable for the following: -Soft pink/yellow umbilicated papules on left eyebrow - Papillomatous brown papules on scalp x2, chest x1 - Brown papillomatous plaque on left frontal scalp - Well-healed surgical scars at sites of prior skin cancer procedures without nodularity - Many 2-4 mm bright red papules on trunk - Multiple thompson to light brown macules in a photo-distributed pattern on face, trunk, and extremities Assessment/Plan: Lakeisha was seen today for lesions. Diagnoses and all orders for this visit: History of basal cell carcinoma (BCC) - No evidence of recurrence unless otherwise noted - Counseled on importance of daily sun protection (SPF >30, Broad Spectrum), and monthly self skin exams (in AVS) - Sunscreen hand out provided - Recommend routine FBSE Seborrheic keratosis - Benign, reassured patient Neoplasm of uncertain behavior of skin - location: left frontal scalp - ddx: nevus vs seborrheic keratosis r/o BCC - shave biopsy (see procedure note) - wound care instructions provided - will call patient with biopsy results. If intervention is indicated, will make arrangements at that time - DERMATOPATHOLOGY - PROC BIOPSY OF SKIN LESION Lentigines - Benign, reassurance - Marker of UV damage - Daily broad spectrum, SPF 30+ sunscreen use - Regular FBSE Sebaceous hyperplasia Donahue angioma - Benign, reassured patient Inflamed seborrheic keratosis Itchy, necessitating medical treatment. - Discussed benign potential - Fully reviewed treatment options with patient including indications, risks, benefits, alternatives to LN2. Pt desires treatment. - LN2 x3 (scalpx2, chestx1) ISKs today (see procedure note) - Wound care reviewed - Post cryo handout given - PROC DESTRUCT BENIGN LESION NOT SKIN TAG Return to clinic in 1 year Patient seen and examined with the attending physician, Dr. Mascorro. Billing Guide Mera Vitale MD [facility] Dermat[facility] Resident documented in this encounter Procedure Notes * Mera Vitale MD - 05/12/2024 4:34 PM CDTAssociated Order(s): PROC BIOPSY OF SKIN LESION Procedure(s): SC TANGNTL BX SKIN SINGLE LES Pre-Procedure Diagnose(s): [...] and sent to dermatopathology. Mera Vitale MD [facility] Dermatology Resident Associated attestation - Jaun Mascorro MD - 05/12/2024 4:51 PM CDT A procedure was performed. I was present for the pollard and critical portions of any procedures performed and was readily, immediately available for the remainder of the procedure at all times. Jaun Mascorro MD * Mera Vitale MD - 05/12/2024 4:33 PM CDTAssociated Order(s): PROC DESTRUCT BENIGN LESION NOT SKIN TAG Procedure(s): SC DESTRUCT BENIGN LESION, 1-14 Pre-Procedure Diagnose(s): Inflamed seborrheic keratosis Diagnosis and treatment options discussed. Cryotherapy (Liquid Nitrogen) to 3 ISK x 10 seconds each. Number of cycles: 1. Wound care reviewed. Mera Vitale MD [facility] Dermatology Resident Associated attestation - Jaun Mascorro MD - 05/12/2024 4:51 PM CDT A procedure was performed. I was present for the pollard and critical portions of any procedures performed and was readily, immediately available for the remainder of the procedure at all times. Jaun Mascorro MD documented in this encounter Plan of Treatment Not on file documented as of this encounter Procedures Procedure Name Priority Date/Time Associated Diagnosis Comments SC TANGNTL BX SKIN SINGLE LES Routine 05/12/2024 4:34 PM CDT Neoplasm of uncertain behavior of skin SC DESTRUCT BENIGN LESION, 1-14 Routine 05/12/2024 4:33 PM CDT Inflamed seborrheic keratosis DERMATOPATHOLOGY Routine 05/12/2024 12:0 0 AM CDT Neoplasm of uncertain behavior of skin documented in this encounter Results * SC TANGNTL BX SKIN SINGLE LES [...] and sent to dermatopathology. Mera Vitale MD [facility] Dermatology Resident Jaun Mascorro MD PROCEDURE/MINOR SURG ICAL ORDERABLES * SC DESTRUCT BENIGN LESION, 1-14 (05/12/2024 4:33 PM CDT) Narrative Jaun Mascorro MD - 05/12/2024 4:33 PM CDT Mera Vitale MD ? 05/12/2024 ??4:33 PM Diagnosis and treatment options discussed. Cryotherapy (Liquid Nitrogen) to 3 ISK x 10 seconds each. Number of cycles: 1. Wound care reviewed. Mera Vitale MD [facility] Dermatology Resident Jaun Mascorro MD PROCEDURE/MINOR SURG ICAL ORDERABLES * DERMATOPATHOLOGY (05/12/2024 12:00 AM CDT) Case Report Dermatopathology Report ? Case: [id number] ? Authorizing Provider: ??Jaun Mascorro MD ? Collected: ? 05/12/2024 12:00 AM ? Ordering Location: ? [facility] - ??Received: ?05/15/2024 06:42 AM ? Dermatology ? Pathologist: ? Mildred Mike MD ? Specimen: ?Skin, left frontal scalp ? 4:29 PM CDT DERMATOPATHOLOGY LABORATORY Final Diagnosis Specimen A. SKIN, left frontal scalp: SEBORRHEIC KERATOSIS, IRRITATED (L82.0) 4:29 PM CDT DERMATOPATHOLOGY LABORATORY Clinical History Nevus vs SK r/o BCC 4:29 PM CDT DERMATOPATHOLOGY LABORATORY Gross Description Specimen A: Received is one formalin filled container labeled with the patient's name and designated left frontal scalp. The specimen consists of a shave biopsy measuring [id number] mm. Jar 0. 4:29 PM CDT DERMATOPATHOLOGY [...] characteristic determined by the Dermatopathology Laboratory at [facility], directed by Dr. Buddy Fisher. These tests need not be, and therefore are not, approved by the [place] Food and Drug Administration. The tests are used for clinical purposes. Billing Codes Specimen Charges Stain Charges 40402 1 4:29 PM CDT DERMATOPATHOLOGY LABORATORY Embedded Images 4:29 PM CDT DERMATOPATHOLOGY LABORATORY Pathology/Cytolog y TISSUE SPECIMEN FROM SKIN / Unknown 05/12/2024 05/15/2024 6:42 AM CDT Jaun Mascorro MD LAB - PATHOLOGY/CYTO LOGY ORDERABLES DERMATOPATHOLOGY LABORATORY [facility] - Department of Dermatology [address] [phone] documented in this encounter Visit Diagnoses Diagnosis History of basal cell carcinoma (BCC)- Primary Seborrheic keratosis Neoplasm of uncertain behavior of skin Lentigines Other dyschromia Donahue angioma Nevus, non-neoplastic Inflamed seborrheic keratosis Sebaceous hyperplasia Other specified disease of sebaceous glands documented in this encounter Care Teams Merchandise Director Relationship Specialty Start Date End Date Blake Lindsey MD [address] [place] [address] PCP - General 05/20/16 documented as of this encounter
--- OUTSIDE RECORDS SUMMARY | 2024-07-29 17:20 | XMS_ITS | Encounter Summary ---
Author Organization [facility] Health Address [address] [place] [address] Care Team Providers Care General Accountant Name Role Phone Blake Lindsey MD Primary Care Provider [phone] Reason for Referral * Radiology Services (Urgent) - Closed Specialty Diagnoses / Procedures Referred By Ariel cano Referred To Contact Hematology-Oncology Diagnoses Hodgkin lymphoma, unspecified Hodgkin lymphoma type, unspecified body region (HCC) Procedures CT NECK SOFT TISSUE W CONT Ashish Peralta MD [address] DIV OF HEMATOLOGY & [place]ICAL [place] [address] Referral ID Status Reason Start Date Expiration Date Visits Re quested Visits Authorized [id number] Closed 06/09/2022 06/09/2023 1 1 [employer] Encounter Details Date Type Department Care Team (Late st Contact Info) Description 06/09/2022 2:20 PM [employer] [facility] [address] [place] [id number] Ashish Peralta MD [address] DIV OF HEMATOLOGY & MEDICAL [place] [address] Basal cell adenocarcinoma (Primary Dx); Hodgkin lymphoma, unspecified Hodgkin lymphoma type, unspecified [...] Sign Reading Time Taken Comments Blood Pressure 122/80 06/09/2022 2:15 PM [employer] Pulse 95 06/09/2022 2:15 PM [employer] Temperature 36.6 ??C (97.8 ??F) 06/09/2022 2:15 PM CS T Respiratory Rate - - Oxygen Saturation 100% 06/09/2022 2:15 PM [employer] Inhaled Oxygen Concentration - - Weight 84.4 kg (186 lb) 06/09/2022 2:15 PM [employer] Height 158.8 cm (5' 2.5 ) 06/09/2022 2:15 PM [employer] Body Mass Index 33.48 06/09/2022 2:15 PM [employer] documented in this encounter Functional Status Functional [...] as of this encounter Progress Notes * Ashish Peralta MD - 06/09/2022 3:32 PM CST I have seen and examined the patient with the resident and I agree with the findings and plan of care as documented by the resident/fellow. Date of Service: 06/09/22 Additional notes by me include: Lakeisha Alejandra is a 51 y/o woman with a history of classic Hodgkin lymphoma, stage IV, diagnosed September 2012 She underwent extensive spine surgery for bony involvement She was treated with escalated BEACOPP which she completed in March 2013 Course was complicated by E coli bacteremia which required port removal I am meeting her for the first time today She was under Dr. Max's care and most recently saw Dr. Moreno in 12/2021 I reviewed their notes, notes from ENT, prior FNA and CT imaging Lakeisha has been dealing with left parotid swelling/tenderness See sequence of evaluation: 09/2020 CT neck 1.2 soft tissue nodules in the superficial lobe of the left parotid gland, stable since the PET/CT from 02/13/[address] cervical spine from 07/19/2018. 2.Few enlarged lymph nodes in the neck. 1 x 0.8 cm left level 2B lymph node, new since 08/15/2020. Stable 1 x 0.8 cm left level 2A lymph node. 10/2020 FNA Component Specimen Adequacy Adequate cellularity for evaluation. Final Diagnosis Lymph node, left parotid, US-guided FNA: - Neoplasm: Benign (see comment). ?? Lymph node, left level 2B 'deep left cervical', US-guided FNA: - Mixed hematopoietic elements with some atypical forms (see comment). at ??5:03 PM 06/2021 CT neck 1. Given the technical differences, the peripherally enhancing centrally hypoattenuating intraparotid mass on the left side is stable, but the more laterally and inferiorly located one with homogeneously hypoattenuating appearance has enlarged in the interval. The previous PET examination demonstrated FDG uptake in the former and not the latter intraparotid mass. Follow-up is recommended. 2. Negative for lymphadenopathy or other significant interval changes. Recent assessment suggested that the parotid findings may have represented a Warthin's tumor but ithas become more symptomatic over the past many weeks. A Hodgkin recurrence this late would be highly unlikely, but certainly may not be diagnosed with an FNA. CBC/CMP raise no concerns. Will plan CT neck followed by further evaluation pending those results. Re: BCCs, Lakeisha's hydramatic specialist left and so she would like a referral to [facility] which we will make. We will stay in communication about the parotid work-up but otherwise Lakeisha can follow in 1 year with CBC/CMP. Next visit, ensure UTD with age-appropriate cancer screening. Ashish Peralta MD MSc pension manager Director of Bone Marrow Transplant and Cellular Therapy [employer] [facility] [employer] * Bertha Han MD - 06/09/2022 2:43 PM CST Images from the original note were not included. [facility] Date: 06/09/2022 Patient Name: Lakeisha Alejandra Date of : 1970 Primary Care Provider: Blake Lindsey MD Oncologic history and Interval History: Lakeisha Alejandra is a 51 year old female with hx of HL in CR since 03/2013, BCC of scalp and benign L parotid tumor, presents for annual f/u for her HL. She was sollowed by Dr. Max and was seen by Dr. Moreno afterwards for her BCC and parotid tumor as a follow up visit. below hx was gathered from prior notes. Oncologic history: history of classic Hodgkin Lymphoma,IPS 3 with biopsy-proven stage IV soft tissue/bone disease, relatively rapid growth, diagnosed in September 2012. Underwent extensive spine surgery with fixation at that point. Started escalated BEACOPP 11/29/12 and completed 03/20/13. She received dose reduction cycles 4-6 (one dose level 4 and 5, two dose levels 6) due to febrile neutropenia in spite of growth factor support and grade IV thrombocytopenia with platelet transfusion refractoriness. Course was complicated by E.coli bacteremia requiring port removal. She remained on CR since then. Noted to have new onset of 0.5 cm basal cell carcinoma of skin on the of scalp detected by her plastic surgeon at [facility] in [place], [place] on 12/09/2021. She was found to have 2 benign tumors in left parotid gland on 11/04/2020 Patient underwent workup for a L parotid LN enlargement on 09/[address] and FNA on 10/2020 revealed benign mixed hematopoietic elements with some atypical forms. She is following with ENT and noted Warthin as a differentials. Interval hx: Patient today reports worsening swelling and inc in the size of L parotid node. She thinks in the past 2 weeks she can now feel it herself easily and in the past it was more subtle. Also thinks 1-2 times a week might feel night time sweating but not significant. No recent URI, no ear pain or infection, no soar throat, no CP or CP> no weight loss or N/V Past Medical History: Diagnosis Date ??? Abnormal [...] recurrent major depressive disorder, without psychotic features ([facility] 01/11/2019 ??? Sleep apnea ??? 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 Sleep talking 07/18/2021 ??? Suicidal ideation 07/15/2021 ??? Thrombocytopenia ([facility]) 02/16/2013 ??? TMJ (temporomandibular joint disorder) 07/11/2020 ??? Unrefreshed by sleep 07/18/2021 ??? Unspecified disorder of synovium and tendon, left shoulder 09/09/2016 ??? Wears glasses 07/18/2021 Review of Systems: Review of Systems (all negative except bolded) GENERAL: No fevers, chills, change in weight, change in appetite. Occasional night sweat 1-2 times a week. SKIN: No rash, pruritus EENT: No blurry vision, change in vision, tinnitus, rhinitis, epistaxis, sinusitis NECK: No pain, stiffness, lumps RESPIRATORY: No dyspnea, wheezing CARDIAC: No chest pain, palpitations, dyspnea GI: No pain, nausea, vomiting, melena, hematochezia, hematemesis HEME: No anemia, easy bruising, bleeding VASCULAR: no pain or swelling in extremities MSK: No muscle or joint pain, stiffness NEURO: No weakness, dizziness Current Outpatient Medications on File Prior to [...] by mouth once daily as needed ??? Cholecalciferol (VITAMIN D) 50 MCG (2000 UT) capsule Take 1 (one) capsule by mouth once daily 90 capsule 3 ??? escitalopram (LEXAPRO) 20 MG tablet Take 20 mg by mouth once daily ??? FeroSul 325 (65 Fe) MG tablet TAKE 1 TABLET BY MOUTH ONCE DAILY, TAKE AT TGHE SAME TIME YOURVITAMIN TABLET 90 tablet 3 ??? fluticasone propionate (FLONASE) 50 MCG/ACT nasal spray [place] 2 sprays into each nostril once daily [...] Take 15 mg by mouth once daily ??? montelukast (SINGULAIR) 10 MG tablet Take 10 mg by mouth once daily ??? mupirocin (BACTROBAN) 2 % ointment Apply to affected area 3 times daily To bilateral nares (Patient not taking: No sig reported) 22 g 1 ??? NYSTOP [id number] UNIT/GM powder Apply 1 Dose to affected area as directed 1 ??? omeprazole (PRILOSEC) 20 MG capsule Take 20 mg by mouth once daily ??? ondansetron (ZOFRAN) 4 MG tablet Take 4 mg by mouth as needed for Nausea/Vomiting ??? potassium chloride ER (KLOR-CON) 20 MEQ tablet Take 20 mEq by mouth once daily 0 ??? prazosin (MINIPRESS) 1 MG capsule Take 1 mg by mouth as directed ??? QUEtiapine (SEROQUEL) 100 MG tablet Take 1 tablet by mouth at bedtime Reasons: Major DepressiveDisorder (Patient not taking: No sig reported) 30 tablet 0 ??? QUEtiapine (SEROQUEL) 200 MG tablet Take 150 mg by mouth at bedtime ??? spironolactone (ALDACTONE) 25 MG tablet Take 1 tablet by mouth once daily 2 ??? SUMAtriptan (IMITREX) 50 MG tablet Take 1 tablet by mouth once as needed for Migraine Maximum daily dose: 200mg/24 hours Reasons: Migraine Headache 30 tablet 0 ??? traZODone (DESYREL) 50 MG tablet Take 50 mg by mouth nightly as needed for Insomnia ??? TRELEGY ELLIPTA 100-62.5-25 MCG/INH Inhale 1 puff by mouth every 6 hours as needed ??? XTAMPZA ER 9 MG capsule Take 9 mg by mouth 2 times daily No current facility-administered medications on file prior to visit. Allergies Allergen Reactions ??? Amoxicillin Rash ??? Penicillins Rash ??? Codeine Other Passes out, Passes out ??? Epinephrine Other When injected in mouth for dental procedures, makes extremities go numb Vital Signs and Physical Exam: Vitals: 06/09/22 1415 BP: 122/80 Pulse: 95 Temp: 97.8 ??F (36.6 ??C) SpO2: 100% Weight: 84.4 kg (186 lb) Height: 1.588 m (5' 2.5 ) Physical Exam General: She is obese. NAD, EENT: Anicteric sclera, conjunctiva pink, moist mucosa membranes, oral mucosa pink Neck: L parotid nodule, slightly red and tender on exam. Resp: CTAB, no wheezing or crackles, no increased work of breathing CV: RRR, normal S1 and S2, no murmurs/rubs/clicks, no LE edema Abd: +BS, soft, non-tender to palpation, no splenomegaly Ext: Moving all extremities spontaneously Neuro: Alert and oriented to person/place/time, grossly intact Skin: x2 red scaly lesion on scalp. Labs: Recent Labs Component Name 01/27/22 1027 06/05/21 1244 03/28/21 0729 09/11/20 1232 WBC 7.1 8.7 7.7 10.4 RBC 4.46 4.86 3.85 4.72 HGB 14.3 15.6 12.3 15.0 HCT 42.2 46.0* 38.4 44.5 MCV 94.6 94.7 99.7* 94.3 MCHC 33.9 33.9 32.0 33.7 PLTCOUNT 209 231 186 219 NEUTPCT 65.9 65.8 50.8 73.3* LYMPHPCT - - - 17.7* BASOPHILPCT - - - 0.4 GRANSIMMPCT - - - 0.4 NEUTABS 4.70 5.7 3.9 7.64* LYMPHABS - - - 1.84 BASOABS - - - 0.04 Recent Labs Component Name 01/27/22 1027 06/05/21 1244 03/28/21 0707 10/18/20 1310 09/11/20 1232 SODIUM - - - - 140 POTASSIUM 3.3* 4.3 - - 4.3 CHLORIDE - - - - 106 CO2 24 22 - - 22* BUN 10 19 - - 24* CREATININE 0.69 0.72 - - 0.77 GLUCOSE 131* 103 - - 89 CALCIUM 9.8 10.4* - - 9.9 ALBUMIN - - - - 4.7 ALKPHOS 84 90 - - 90 ALT 13 18 - - 20 AST 11 20 - - 23 TBIL - - - - 0.7 TPROT - - - - 7.8 EGFR >90 >90 >60 - >60 - = values in this interval not displayed. Pathology 11/04/20: Final Diagnosis Lymph node, left parotid, US-guided FNA: - Neoplasm: Benign (see comment). Lymph node, left level 2B 'deep left cervical', US-guided FNA: - Mixed hematopoietic elements with some atypical forms (see comment). Microscopic Description Parotid (A), direct smears (4) show a cystic background with proteinaceous debris and numerous lymphocytes. There are also scattered clusters of bland epithelium with no cytologic atypia. The epithelial component has a minor, and poorly developed granular component to the cytoplasm, although this is not universal. A myoepithelial component or matrix material does not appear to be present and the epithelial cells are not basaloid in their morphology. Comment: The findings could represent a Warthin Tumor with only slight sampling of the oncocytic epithelium. However, salivary gland neoplasms such as a pleomorphic adenoma with an adjacent lymph node are also in the differential. Level 2B lymph node (B), direct smears (4) show a cellular lymph node specimen with a mixed and polymorphous population including scattered neutrophils and rare eosinophils. There are scattered largeatypical monocytoid cells with prominent nucleoli, as well as a few bi-nucleated forms. But there are not clear Vu-Aleyda cells in this material; and the atypical and bi-nucleated forms could beimmunoblasts or follicular dendritic cells. Comment: Unfortunately there is no cell block or core biopsy for this case, precluding a more definitive work-up. If clinical suspicion is extremely high, the the findings do not rule out Hodkin Lymphoma. However, we recommend an excisional procedure or multiple core needle biopsies to further classify the process in this lymph node. Final Diagnosis Lymph node, left neck, flow cytometric immunophenotypic analysis: - No evidence of non-Hodgkin lymphoma. - See interpretation. Imaging 07/01/21 CT neck IMPRESSION: 1. Given the technical differences, the peripherally enhancing centrally hypoattenuating intraparotid mass on the left side is stable, but the more laterally and inferiorly located one with homogeneously hypoattenuating appearance has enlarged in the interval. The previous PET examination demonstrated FDG uptake in the former and not the latter intraparotid mass. Follow-up is recommended. 2. Negative for lymphadenopathy or other significant interval changes. 10/18/20 CT neck IMPRESSION: 1.2 soft tissue nodules in the superficial lobe of the left parotid gland, stable since the PET/CT from 02/13/[address] cervical spine from 07/19/2018. 2.Few enlarged lymph nodes in the neck. 1 x 0.8 cm left level 2B lymph node, new since 08/15/2020. Stable 1 x 0.8 cm left level 2A lymph node. PET/CT 02/13/19: IMPRESSION: 1. No definite PET/CT evidence of malignancy (Deauville Score 1). 2. Mildly FDG avid left-sided subcentimeter intraparotid nodule. Findings may represent a benign entity such as a Warthin tumor. 3. Small region of increased FDG uptake on inferior medial right breast with associated skin thickening on CT which may represent infectious/inflammatory process. Recommend clinical correlation. Assessment and Plan: 51Y female with hx of HL in CR since 03/2013, BCC of scalp and benign L parotid tumor, presents for annual f/u for her HL. year old female with classic Hodgkin Lymphoma, stage IV, IPS 3 with biopsy-proven stage IV soft tissue/bone disease, s/p escalated BEACOPP with subsequent remission, currently on clinical surveillance and presenting for interval follow-up. # History of Classic Hodgkin lymphoma, stage 4 s/p BEACOPP 2013 in CR. No systemic sign of recurrence per labs and clinically, except L parotid gland enlargement. 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 #hx benign L Parotid Lesions #R nasal septum deviation with bilateral turbinate hypertrophy #TMJ pain Last visit with ENT 08/2021, mostly for nasal symptoms and hx of multiple infections. - Recommended follow up with ENT -Parotid LN as above. # hx of 0.5 cm basal cell carcinoma of scalp. We sent a referral to [facility] dermatologists as her prior hydramatic specialist is not practicing anymore. RTC in 1 year for clinical surveillance and CBC. CMP, LDH. Will f/u on above CT Plan above was discussed with Dr. Peralta. Addendum to follow. Bertha Han MD, PGY-4 Hematology-Oncology Fellow [facility] Per [facility] [employer] Associated attestation - Ashish Peralta MD - 06/13/2022 12:57 PM [employer] I have seen and examined the patient with the resident and I agree with the findings and plan of care as documented by the resident/fellow. Date of Service: 06/09/22 Additional notes by me include: Lakeisha Alejandra is a 51 y/o woman with a history of classic Hodgkin lymphoma, stage IV, diagnosed September 2012 She underwent extensive spine surgery for bony involvement She was treated with escalated BEACOPP which she completed in March 2013 Course was complicated by E coli bacteremia which required port removal I am meeting her for the first time today She was under Dr. Max's care and most recently saw Dr. Moreno in 12/2021 I reviewed their notes, notes from ENT, prior FNA and CT imaging Lakeisha has been dealing with left parotid swelling/tenderness See sequence of evaluation: 09/2020 CT neck 1.2 soft tissue nodules in the superficial lobe of the left parotid gland, stable since the PET/CT from 02/13/[address] cervical spine from 07/19/2018. 2.Few enlarged lymph nodes in the neck. 1 x 0.8 cm left level 2B lymph node, new since 08/15/2020. Stable 1 x 0.8 cm left level 2A lymph node. 10/2020 FNA Component Specimen Adequacy Adequate cellularity for evaluation. Final Diagnosis Lymph node, left parotid, US-guided FNA: - Neoplasm: Benign (see comment). Lymph node, left level 2B 'deep left cervical', US-guided FNA: - Mixed hematopoietic elements with some atypical forms (see comment). 06/2021 CT neck 1. Given the technical differences, the peripherally enhancing centrally hypoattenuating intraparotid mass on the left side is stable, but the more laterally and inferiorly located one with homogeneously hypoattenuating appearance has enlarged in the interval. The previous PET examination demonstrated FDG uptake in the former and not the latter intraparotid mass. Follow-up is recommended. 2. Negative for lymphadenopathy or other significant interval changes. Recent assessment suggested that the parotid findings may have represented a Warthin's tumor but ithas become more symptomatic over the past many weeks. A Hodgkin recurrence this late would be highly unlikely, but certainly may not be diagnosed with an FNA. CBC/CMP raise no concerns. Will plan CT neck followed by further evaluation pending those results. Re: BCCs, Lakeisha's hydramatic specialist left and so she would like a referral to [facility] which we will make. We will stay in communication about the parotid work-up but otherwise Lakeisha can follow in 1 year with CBC/CMP. Next visit, ensure UTD with age-appropriate cancer screening. Ashish Peralta MD MSc pension manager Director of Bone Marrow Transplant and Cellular Therapy [employer] [facility] documented in this encounter Plan of Treatment Not on file documented as of this encounter Results * CT NECK SOFT TISSUE W CONT (06/18/2022 3:13 PM [employer]) Anatomical Region Laterality Modality Head Computed Tomogra phy 06/18/2022 3:25 PM [employer] Impressions 06/19/2022 1:26 PM [employer] IMPRESSION: ?? 1.Stable appearance of the 2 separate hyperdense/enhancing lesions in the superficial lobe of left parotid gland. 2.No significant cervical lymphadenopathy. > Dictated by Lisandro Burris M.D. (residential program coordinator) I, Jaja Akers MD have personally reviewed and interpreted this examination/study. > Interpreting Provider: Jaja Akers MD on 06/19/2022 1:26 PM Narrative 06/19/2022 1:26 PM [employer] PROCEDURE: ??CT NECK SOFT TISSUE W CONT, DATE/TIME OF EXAM: ??06/18/2022 3:13 PM, LOCATION ??[facility] INDICATION: C81.90: Hodgkin lymphoma, unspecified Hodgkin lymphoma type, unspecified body region (CMS/HCC) ADDITIONAL CLINICAL INFORMATION: Ordering Provider Reason For Exam: ??Remote h/o of Hodgkin lymphoma, left parotid swelling with 10/2020 FNA with atypical cells, assess for parotid malignancy Technologist Note: Additional: COMPARISON: CT neck soft tissues from 07/01/2021 was reviewed. EXAMINATION: CT scan of the neck soft tissues with intravenous contrast TECHNIQUE: CT images of the neck soft tissues were obtained according to standard protocol after administration of intravenous contrast according to standard protocol. CT dose reduction technique was used, including Automated Exposure Control. IV CONTRAST: Iopamidol 76% iv soln: 100 ml FINDINGS: ORAL CAVITY: Normal including tongue and floor of mouth. SUBMANDIBULAR SPACE: Normal. PHARYNX/LARYNX/TRACHEA: Normal. RETROPHARYNGEAL SPACE: Normal. REVENUE INSPECTOR SPACE: Normal. CAROTID SPACE: Retropharyngeal course of both common carotid arteries. Patent carotid arteries and internal jugular veins. No mass. PAROTID SPACE: Stable appearance of the 2 separate hyperdense/enhancing lesions in the superficial lobe of left parotid gland. The upper lesion measures 1.5 x 1 cm in transaxial dimensions and 1.2 cm in height in the lower lesion measures 1.5 x 0.6 x 1 cm, remeasured on prior study. Normal right parotid gland. LYMPH NODES: No suspicious lymph nodes. A few prominent lymph nodes in the left level 2A and 5 are stable, the largest lymph node measures 1 x 0.7 cm on series 3 image 59 (previously seen on series 3 image 60) THYROID: Normal. BONES: Partial visualization of lower cervical/thoracic fixation hardware with extensive streak artifact. ORBITS: No abnormality. PARANASAL SINUSES: Aerated. MEDIASTINUM: No significant finding. LUNG APICES: No suspicious nodule or mass. BRAIN: No significant abnormality. SUPERFICIAL SOFT TISSUES: No significant abnormality. Procedure Note Jaja Akers MD - 06/19/2022 PROCEDURE: CT NECK SOFT TISSUE W CONT, DATE/TIME OF EXAM: :13 PM, LOCATION [facility] INDICATION: C81.90: Hodgkin lymphoma, unspecified Hodgkin lymphoma type, unspecified body region (CMS/HCC) ADDITIONAL CLINICAL INFORMATION: Ordering Provider Reason For Exam: Remote h/o of Hodgkin lymphoma, left parotid swelling with 10/2020 FNA with atypical cells, assess for parotid malignancy Technologist Note: Additional: COMPARISON: CT neck soft tissues from 07/01/2021 was reviewed. EXAMINATION: CT scan of the neck soft tissues with intravenous contrast TECHNIQUE: CT images of the neck soft tissues were obtained according to standard protocol after administration of intravenous contrast according tostandard protocol. CT dose reduction technique was used, including Automated Exposure Control. IV CONTRAST: Iopamidol 76% iv soln: 100 ml FINDINGS: ORAL CAVITY: Normal including tongue and floor of mouth. SUBMANDIBULAR SPACE: Normal. PHARYNX/LARYNX/TRACHEA: Normal. RETROPHARYNGEAL SPACE: Normal. REVENUE INSPECTOR SPACE: Normal. CAROTID SPACE: Retropharyngeal course of both common carotid arteries. Patent carotid arteries and internal jugular veins. No mass. PAROTID SPACE: Stable appearance of the 2 separate hyperdense/enhancing lesions in the superficial lobe of left parotid gland. The upper lesion measures 1.5 x 1 cm in transaxial dimensions and 1.2 cm in height in the lower lesion measures 1.5 x 0.6 x 1 cm, remeasured on prior study.Normal right parotid gland. LYMPH NODES: No suspicious lymph nodes. A few prominent lymph nodes inthe left level 2A and 5 are stable, the largest lymph node measures 1 x 0.7cm on series 3 image 59 (previously seen on series 3 image 60) THYROID: Normal. BONES: Partial visualization of lower cervical/thoracic fixationhardware with extensive streak artifact. ORBITS: No abnormality. PARANASAL SINUSES: Aerated. MEDIASTINUM: No significant finding. LUNG APICES: No suspicious nodule or mass. BRAIN: No significant abnormality. SUPERFICIAL SOFT TISSUES: No significant abnormality. IMPRESSION: 1.Stable appearance of the 2 separate hyperdense/enhancing lesions inthe superficial lobe of left parotid gland. 2.No significant cervical lymphadenopathy. > Dictated by Lisandro Burris M.D. (residential program coordinator) I, Jaja Akers MD have personally reviewed and interpreted this examination/study. > Interpreting Provider: Jaja Akers MD on 06/19/2022 1:26 PM Ashish Peralta MD CT ORDERABLES documented in this encounter Visit Diagnoses Diagnosis Basal cell adenocarcinoma- Primary Basal cell carcinoma of skin, site unspecified Hodgkin lymphoma, unspecified Hodgkin lymphoma type, unspecified body region (HCC) Hodgkin lymphoma, unspecified Hodgkin lymphoma type, unspecified body region (HCC) documented in this encounter Care Teams General Accountant Relationship Specialty Start Date End Date Blake Lindsey MD [address] [place] [address] PCP - General 05/20/16 documented as of this encounter
--- OUTSIDE RECORDS SUMMARY | 2024-07-29 17:20 | XMS_ITS | Patient Health Summary ---
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 CBC W AUTO DIFFERENTIAL(Performed 03/26/2015) * CBC W AUTO DIFFERENTIAL(Performed 03/26/2015) * FL YUSRA SURGERY(Performed 03/25/2015) * FL YUSRA SURGERY(Performed 03/25/2015) * BLOOD GASES ART COMPLETE [facility] OR(Performed 03/25/2015) * CULTURE ANAEROBE(Performed 03/25/2015) * CULTURE AEROBIC(Performed 03/25/2015) * BLOOD GASES ART COMPLETE [facility] OR(Performed 03/25/2015) * HCG BETA BLOOD QUANTITATIVE(Performed 03/25/2015) * COMPLETE PFT W/WO BRONCHODILATOR(Performed 03/11/2015) * BLOOD GASES ART - PFT(Performed 03/11/2015) * TYPE + SCREEN PANEL(Performed 02/19/2015) * BASIC METABOLIC PANEL (CALCIUM TOTAL)(Performed 02/19/2015) * DIFFERENTIAL MANUAL(Performed 02/19/2015) * URINALYSIS REFLEX TO MICROSCOPIC NO CULTURE(Performed 02/19/2015) * CBC W AUTO DIFFERENTIAL(Performed 02/19/2015) * CBC W AUTO DIFFERENTIAL(Performed 02/19/2015) * XR CHEST 2VW(Performed 02/19/2015) * EKG 12-LEAD(Performed 02/19/2015) * XR THORACIC SPINE 2VW(Performed 02/05/2015) * XR CERVICAL SPINE 4 OR 5VW(Performed 02/05/2015) * FLOW CYTOMETRY RITUXAN BLOOD(Performed 11/29/2014) * IGG BLOOD(Performed 11/29/2014) * LAB MISC TEST(Performed 11/29/2014) * INFLUENZA A+B PCR(Performed 11/29/2014) * INFLUENZA A+B ANTIGEN RAPID(Performed 11/29/2014) * VITAMIN D 25-HYDROXY(Performed 11/29/2014) * LDH BLOOD(Performed 11/29/2014) * COMPREHENSIVE METABOLIC PANEL(Performed 11/29/2014) * CBC W AUTO DIFFERENTIAL(Performed 11/29/2014) * CBC W AUTO DIFFERENTIAL(Performed 11/29/2014) * PET CT WHOLE BODY(Performed 11/21/2014) * GLUCOSE - POINT OF CARE (AMB) [facility](Performed 11/21/2014) * GLUCOSE - POINT OF CARE (AMB) [facility](Performed 11/21/2014) * XR CERVICAL SPINE 2 OR 3VW(Performed 11/06/2014) * XR THORACIC SPINE 2VW(Performed 11/06/2014) * FLOW CYTOMETRY RITUXAN BLOOD(Performed 08/09/2014) * IGG BLOOD(Performed 08/09/2014) * COMPREHENSIVE METABOLIC PANEL(Performed 08/09/2014) * CBC W AUTO DIFFERENTIAL(Performed 08/09/2014) * CBC W AUTO DIFFERENTIAL(Performed 08/09/2014) * CULTURE URINE(Performed 08/04/2014) * URINALYSIS REFLEX TO MICROSCOPIC NO CULTURE(Performed 08/04/2014) * VIRAL RESPIRATORY PANEL BY RT-PCR(Performed 08/04/2014) * CULTURE BLOOD(Performed 08/03/2014) * B-TYPE NATRIURETIC PEPTIDE(Performed 08/03/2014) * INFLUENZA A+B ANTIGEN RAPID(Performed 08/03/2014) * INFLUENZA A+B PCR(Performed 08/03/2014) * CT CHEST WO CONTRAST(Performed 08/03/2014) * T4 FREE(Performed 08/03/2014) * TSH(Performed 08/03/2014) * COMPREHENSIVE METABOLIC PANEL(Performed 08/03/2014) * CBC W AUTO DIFFERENTIAL(Performed 08/03/2014) * CBC W AUTO DIFFERENTIAL(Performed 08/03/2014) * EKG 12-LEAD(Performed 08/03/2014) * CBC W AUTO DIFFERENTIAL(Performed 06/15/2014) * ERYTHROCYTE SEDIMENTATION RATE(Performed 06/15/2014) * BASIC METABOLIC PANEL (CALCIUM TOTAL)(Performed 06/15/2014) * C-REACTIVE PROTEIN(Performed 06/15/2014) * PTT [facility](Performed 06/15/2014) * PT-INR [facility](Performed 06/15/2014) * CBC W AUTO DIFFERENTIAL(Performed 06/15/2014) * MRI CERVICAL SPINE WWO CONT(Performed 06/12/2014) * LDH BLOOD(Performed 05/31/2014) * COMPREHENSIVE METABOLIC PANEL(Performed 05/31/2014) * CBC W AUTO DIFFERENTIAL(Performed 05/31/2014) * CBC W AUTO DIFFERENTIAL(Performed 05/31/2014) * PET CT WHOLE BODY(Performed 05/24/2014) * GLUCOSE - POINT OF CARE (AMB) [facility](Performed 05/24/2014) * GLUCOSE - POINT OF CARE (AMB) [facility](Performed 05/24/2014) * PT-INR [facility](Performed 03/15/2014) * PTT [facility](Performed 03/15/2014) * CBC W AUTO DIFFERENTIAL(Performed 03/15/2014) * FLOW CYTOMETRY PANEL(Performed 02/22/2014) * PATHOLOGY/GENETICS HISTORICAL-ONBASE(Performed 02/22/2014) * XR CHEST 1VW PORTABLE(Performed 02/21/2014) * CT GUIDED NEEDLE PLACEMENT(Performed 02/21/2014) * CT GUIDED NEEDLE PLACEMENT(Performed 02/21/2014) * PATHOLOGY TISSUE(Performed 02/21/2014) * CYTOLOGY NON-OFFICE MANAGER PANEL (STL)(Performed 02/21/2014) * LDH BLOOD(Performed 02/08/2014) * COMPREHENSIVE METABOLIC PANEL(Performed 02/08/2014) * CBC W AUTO DIFFERENTIAL(Performed 02/08/2014) * CBC W AUTO DIFFERENTIAL(Performed 02/08/2014) * PET CT WHOLE BODY(Performed 01/25/2014) * GLUCOSE - POINT OF CARE (AMB) [facility](Performed 01/25/2014) * GLUCOSE - POINT OF CARE (AMB) [facility](Performed 01/25/2014) * BASIC METABOLIC PANEL (CALCIUM TOTAL)(Performed 11/23/2013) * CBC W AUTO DIFFERENTIAL(Performed 11/23/2013) * XR THORACIC SPINE 2VW(Performed 11/07/2013) * BASIC METABOLIC PANEL (CALCIUM TOTAL)(Performed 11/01/2013) * CBC W AUTO DIFFERENTIAL(Performed 11/01/2013) * IGM BLOOD(Performed 10/12/2013) * IGA BLOOD(Performed 10/12/2013) * FLOW CYTOMETRY RITUXAN BLOOD(Performed 10/12/2013) * IGG BLOOD(Performed 10/12/2013) * LDH BLOOD(Performed 10/12/2013) * COMPREHENSIVE METABOLIC PANEL(Performed 10/12/2013) * CBC W AUTO DIFFERENTIAL(Performed 10/12/2013) * PET CT WHOLE BODY(Performed 10/10/2013) * GLUCOSE - POINT OF CARE (AMB) [facility](Performed 10/10/2013) * GLUCOSE - POINT OF CARE (AMB) [facility](Performed 10/10/2013) * COMPREHENSIVE METABOLIC PANEL(Performed 07/13/2013) * LDH BLOOD(Performed 07/13/2013) * CBC W AUTO DIFFERENTIAL(Performed 07/13/2013) * PET CT WHOLE BODY(Performed 06/26/2013) * GLUCOSE - POINT OF CARE (AMB) [facility](Performed 06/26/2013) * GLUCOSE - POINT OF CARE (AMB) [facility](Performed 06/26/2013) * FLOW CYTOMETRY RITUXAN BLOOD(Performed 04/25/2013) * CBC W AUTO DIFFERENTIAL(Performed 04/25/2013) * LDH BLOOD(Performed 04/25/2013) * COMPREHENSIVE METABOLIC PANEL(Performed 04/25/2013) * PET CT WHOLE BODY(Performed 04/24/2013) * GLUCOSE - POINT OF CARE (AMB) [facility](Performed 04/24/2013) * CBC W AUTO DIFFERENTIAL(Performed 04/19/2013) * COMPREHENSIVE METABOLIC PANEL(Performed 04/19/2013) * COMPREHENSIVE METABOLIC PANEL(Performed 04/19/2013) * LAB HISTORICAL RESULTS-ONBASE(Performed 04/19/2013) * LAB HISTORICAL RESULTS-ONBASE(Performed 04/19/2013) * LDH BLOOD(Performed 04/11/2013) * COMPREHENSIVE METABOLIC PANEL(Performed 04/11/2013) * CBC W AUTO DIFFERENTIAL(Performed 04/11/2013) * CBC W AUTO DIFFERENTIAL(Performed 04/06/2013) * COMPREHENSIVE METABOLIC PANEL(Performed 04/06/2013) * COMPREHENSIVE METABOLIC PANEL(Performed 04/06/2013) * LDH BLOOD(Performed 04/04/2013) * COMPREHENSIVE METABOLIC PANEL(Performed 04/04/2013) * CBC W AUTO DIFFERENTIAL(Performed 04/04/2013) * PLATELET COUNT AUTO(Performed 04/01/2013) * TYPE + SCREEN PANEL(Performed 04/01/2013) * PREPARE PLATELET PHERESIS UNIT(S)(Performed 04/01/2013) * CBC W AUTO DIFFERENTIAL(Performed 04/01/2013) * CBC W AUTO DIFFERENTIAL(Performed 03/30/2013) * PLATELET COUNT AUTO(Performed 03/30/2013) * PREPARE PLATELET PHERESIS UNIT(S)(Performed 03/30/2013) * CROSSMATCH RBC LEUKOREDUCED(Performed 03/30/2013) * TYPE + SCREEN PANEL(Performed 03/30/2013) * CBC W AUTO DIFFERENTIAL(Performed 03/29/2013) * COMPREHENSIVE METABOLIC PANEL(Performed 03/29/2013) * COMPREHENSIVE METABOLIC PANEL(Performed 03/29/2013) * TYPE + SCREEN PANEL(Performed 03/27/2013) * CULTURE BLOOD(Performed 03/27/2013) * CULTURE BLOOD(Performed 03/27/2013) * CULTURE BLOOD(Performed 03/27/2013) * CULTURE URINE(Performed 03/27/2013) * CBC W AUTO DIFFERENTIAL(Performed 03/27/2013) * URINALYSIS REFLEX TO MICROSCOPIC NO CULTURE(Performed 03/27/2013) * URINALYSIS REFLEX TO MICROSCOPIC NO CULTURE(Performed 03/27/2013) * COMPREHENSIVE METABOLIC PANEL(Performed 03/27/2013) * PHOSPHORUS BLOOD(Performed 03/27/2013) * MAGNESIUM BLOOD(Performed 03/27/2013) * CBC W AUTO DIFFERENTIAL(Performed 03/22/2013) * URIC ACID BLOOD(Performed 03/22/2013) * PHOSPHORUS BLOOD(Performed 03/22/2013) * MAGNESIUM BLOOD(Performed 03/22/2013) * LDH BLOOD(Performed 03/22/2013) * COMPREHENSIVE METABOLIC PANEL(Performed 03/22/2013) * VAS RIGHT VENOUS DUPLEX UE(Performed 03/21/2013) * CBC W AUTO DIFFERENTIAL(Performed 03/21/2013) * URIC ACID BLOOD(Performed 03/21/2013) * LDH BLOOD(Performed 03/21/2013) * MAGNESIUM BLOOD(Performed 03/21/2013) * PHOSPHORUS BLOOD(Performed 03/21/2013) * COMPREHENSIVE METABOLIC PANEL(Performed 03/21/2013) * GLUCOSE ACCUCHECK(Performed 03/20/2013) * XR THORACIC SPINE 2VW(Performed 03/20/2013) * CROSSMATCH RBC LEUKOREDUCED(Performed 03/20/2013) * TYPE + SCREEN PANEL(Performed 03/20/2013) * CBC W AUTO DIFFERENTIAL(Performed 03/20/2013) * COMPREHENSIVE METABOLIC PANEL(Performed 03/20/2013) * MAGNESIUM BLOOD(Performed 03/20/2013) * PHOSPHORUS BLOOD(Performed 03/20/2013) * LDH BLOOD(Performed 03/20/2013) * URIC ACID BLOOD(Performed 03/20/2013) * CULTURE BLOOD(Performed 03/20/2013) * CULTURE BLOOD(Performed 03/20/2013) * URINALYSIS REFLEX TO MICROSCOPIC NO CULTURE(Performed 03/20/2013) * URINALYSIS REFLEX TO MICROSCOPIC NO CULTURE(Performed 03/20/2013) * COMPREHENSIVE METABOLIC PANEL(Performed 03/17/2013) * LDH BLOOD(Performed 03/17/2013) * CBC W AUTO DIFFERENTIAL(Performed 03/17/2013) * CBC W AUTO DIFFERENTIAL(Performed 03/15/2013) * COMPREHENSIVE METABOLIC PANEL(Performed 03/15/2013) * LDH BLOOD(Performed 03/13/2013) * COMPREHENSIVE METABOLIC PANEL(Performed 03/13/2013) * CBC W AUTO DIFFERENTIAL(Performed 03/13/2013) * CBC W AUTO DIFFERENTIAL(Performed 03/08/2013) * COMPREHENSIVE METABOLIC PANEL(Performed 03/08/2013) * COMPREHENSIVE METABOLIC PANEL(Performed 03/06/2013) * CBC W AUTO DIFFERENTIAL(Performed 03/06/2013) * PLATELET COUNT AUTO(Performed 03/03/2013) * PREPARE PLATELET PHERESIS UNIT(S)(Performed 03/03/2013) * COMPREHENSIVE METABOLIC PANEL(Performed 03/03/2013) * PHOSPHORUS BLOOD(Performed 03/03/2013) * LDH BLOOD(Performed 03/03/2013) * CBC W AUTO DIFFERENTIAL(Performed 03/03/2013) * MAGNESIUM BLOOD(Performed 03/03/2013) * CROSSMATCH RBC LEUKOREDUCED(Performed 03/01/2013) * TYPE + SCREEN PANEL(Performed 03/01/2013) * CBC W AUTO DIFFERENTIAL(Performed 03/01/2013) * COMPREHENSIVE METABOLIC PANEL(Performed 03/01/2013) * CULTURE BLOOD(Performed 02/28/2013) * CULTURE BLOOD(Performed 02/28/2013) * CULTURE BLOOD(Performed 02/28/2013) * CBC W AUTO DIFFERENTIAL(Performed 02/28/2013) * COMPREHENSIVE METABOLIC PANEL(Performed 02/28/2013) * CBC W AUTO DIFFERENTIAL(Performed 02/23/2013) * PHOSPHORUS BLOOD(Performed 02/23/2013) * MAGNESIUM BLOOD(Performed 02/23/2013) * COMPREHENSIVE METABOLIC PANEL(Performed 02/23/2013) * PTT [facility](Performed 02/23/2013) * PT-INR [facility](Performed 02/23/2013) * CBC W AUTO DIFFERENTIAL(Performed 02/22/2013) * PHOSPHORUS BLOOD(Performed 02/22/2013) * MAGNESIUM BLOOD(Performed 02/22/2013) * COMPREHENSIVE METABOLIC PANEL(Performed 02/22/2013) * PTT [facility](Performed 02/22/2013) * PT-INR [facility](Performed 02/22/2013) * IR PICC LINE INSERT(Performed 02/21/2013) * IR US GUIDE VASCULAR ACCESS(Performed 02/21/2013) * IR CENTRAL LINE REMOVAL(Performed 02/21/2013) * IR PICC LINE INSERT(Performed 02/21/2013) * IR TUNNEL PLEURAL CATH REMOVE(Performed 02/21/2013) * CBC W AUTO DIFFERENTIAL(Performed 02/21/2013) * PHOSPHORUS BLOOD(Performed 02/21/2013) * MAGNESIUM BLOOD(Performed 02/21/2013) * COMPREHENSIVE METABOLIC PANEL(Performed 02/21/2013) * PTT [facility](Performed 02/21/2013) * PT-INR [facility](Performed 02/21/2013) * TYPE + SCREEN PANEL(Performed 02/20/2013) * COMPREHENSIVE METABOLIC PANEL(Performed 02/20/2013) * CBC W AUTO DIFFERENTIAL(Performed 02/20/2013) * PTT [facility](Performed 02/20/2013) * PT-INR [facility](Performed 02/20/2013) * CULTURE BLOOD(Performed 02/20/2013) * CULTURE BLOOD(Performed 02/20/2013) * CULTURE BLOOD(Performed 02/20/2013) * PET CT WHOLE BODY(Performed 02/20/2013) * CBC W AUTO DIFFERENTIAL(Performed 02/20/2013) * PHOSPHORUS BLOOD(Performed 02/20/2013) * MAGNESIUM BLOOD(Performed 02/20/2013) * LDH BLOOD(Performed 02/20/2013) * COMPREHENSIVE METABOLIC PANEL(Performed 02/20/2013) * GLUCOSE - POINT OF CARE (AMB) [facility](Performed 02/20/2013) * EKG 12-LEAD(Performed 02/18/2013) * CBC W AUTO DIFFERENTIAL(Performed 02/16/2013) * PHOSPHORUS BLOOD(Performed 02/16/2013) * MAGNESIUM BLOOD(Performed 02/16/2013) * COMPREHENSIVE METABOLIC PANEL(Performed 02/16/2013) * PT-INR [facility](Performed 02/16/2013) * CULTURE BLOOD(Performed 02/15/2013) * CULTURE BLOOD(Performed 02/15/2013) * CULTURE BLOOD(Performed 02/15/2013) * CBC W AUTO DIFFERENTIAL(Performed 02/15/2013) * PHOSPHORUS BLOOD(Performed 02/15/2013) * MAGNESIUM BLOOD(Performed 02/15/2013) * COMPREHENSIVE METABOLIC PANEL(Performed 02/15/2013) * PT-INR [facility](Performed 02/15/2013) * HLA ANTIBODY SCREEN LUM CLASS 1 SAB(Performed 02/14/2013) * PLATELET COUNT AUTO(Performed 02/14/2013) * PLATELET COUNT AUTO(Performed 02/14/2013) * CBC W AUTO DIFFERENTIAL(Performed 02/14/2013) * PHOSPHORUS BLOOD(Performed 02/14/2013) * MAGNESIUM BLOOD(Performed 02/14/2013) * COMPREHENSIVE METABOLIC PANEL(Performed 02/14/2013) * PT-INR [facility](Performed 02/14/2013) * CULTURE BLOOD(Performed 02/13/2013) * CULTURE BLOOD(Performed 02/13/2013) * PLATELET COUNT AUTO(Performed 02/13/2013) * CBC W AUTO DIFFERENTIAL(Performed 02/13/2013) * PHOSPHORUS BLOOD(Performed 02/13/2013) * MAGNESIUM BLOOD(Performed 02/13/2013) * COMPREHENSIVE METABOLIC PANEL(Performed 02/13/2013) * PT-INR [facility](Performed 02/13/2013) * ECHO COMPLETE(Performed 02/13/2013) * CULTURE FUNGUS OTHER+FUNGUS SMEAR(Performed 02/12/2013) * VIRAL CULTURE MISC(Performed 02/12/2013) * FUNGUS SMEAR(Performed 02/12/2013) * PLATELET COUNT AUTO(Performed 02/12/2013) * CT CHEST ABDOMEN PELVIS W CONT(Performed 02/12/2013) * CBC W AUTO DIFFERENTIAL(Performed 02/12/2013) * PT-INR [facility](Performed 02/12/2013) * PHOSPHORUS BLOOD(Performed 02/12/2013) * MAGNESIUM BLOOD(Performed 02/12/2013) * COMPREHENSIVE METABOLIC PANEL(Performed 02/12/2013) * CBC W AUTO DIFFERENTIAL(Performed 02/12/2013) * PT-INR [facility](Performed 02/12/2013) * COMPREHENSIVE METABOLIC PANEL(Performed 02/12/2013) * PHOSPHORUS BLOOD(Performed 02/12/2013) * MAGNESIUM BLOOD(Performed 02/12/2013) * PLATELET COUNT AUTO(Performed 02/11/2013) * FIBRIN MONOMER(Performed 02/11/2013) * LDH BLOOD(Performed 02/11/2013) * PT-INR [facility](Performed 02/11/2013) * PTT [facility](Performed 02/11/2013) * FIBRINOGEN CLAUSS(Performed 02/11/2013) * XR CHEST 1VW PORTABLE(Performed 02/11/2013) * PREPARE PLATELET PHERESIS UNIT(S)(Performed 02/11/2013) * CULTURE URINE(Performed 02/11/2013) * CROSSMATCH RBC LEUKOREDUCED(Performed 02/11/2013) * TYPE + SCREEN PANEL(Performed 02/11/2013) * CBC W AUTO DIFFERENTIAL(Performed 02/11/2013) * BASIC METABOLIC PANEL (CALCIUM TOTAL)(Performed 02/11/2013) * PHOSPHORUS BLOOD(Performed 02/11/2013) * MAGNESIUM BLOOD(Performed 02/11/2013) * URINALYSIS REFLEX TO MICROSCOPIC NO CULTURE(Performed 02/11/2013) * CULTURE BLOOD(Performed 02/10/2013) * CULTURE BLOOD(Performed 02/10/2013) * PLATELET COUNT AUTO(Performed 02/10/2013) * PLATELET COUNT AUTO(Performed 02/10/2013) * CROSSMATCH RBC LEUKOREDUCED(Performed 02/10/2013) * PREPARE PLATELET PHERESIS UNIT(S)(Performed 02/10/2013) * PREPARE PLATELET PHERESIS UNIT(S)(Performed 02/10/2013) * TYPE + SCREEN PANEL(Performed 02/10/2013) * COMPREHENSIVE METABOLIC PANEL(Performed 02/10/2013) * CBC W AUTO DIFFERENTIAL(Performed 02/10/2013) * LDH BLOOD(Performed 02/10/2013) * LAB HISTORICAL RESULTS-ONBASE(Performed 02/09/2013) * CBC W AUTO DIFFERENTIAL(Performed 02/08/2013) * COMPREHENSIVE METABOLIC PANEL(Performed 02/08/2013) * COMPREHENSIVE METABOLIC PANEL(Performed 02/08/2013) * LAB HISTORICAL RESULTS-ONBASE(Performed 02/08/2013) * ANTIBODY SCREEN(Performed 02/06/2013) * BLOOD TYPE ABO+ RH PANEL(Performed 02/06/2013) * CROSSMATCH RBC LEUKOREDUCED(Performed 02/06/2013) * CBC W AUTO DIFFERENTIAL(Performed 02/06/2013) * MAGNESIUM BLOOD(Performed 02/06/2013) * PHOSPHORUS BLOOD(Performed 02/06/2013) * LDH BLOOD(Performed 02/06/2013) * COMPREHENSIVE METABOLIC PANEL(Performed 02/06/2013) * CBC W AUTO DIFFERENTIAL(Performed 02/03/2013) * COMPREHENSIVE METABOLIC PANEL(Performed 02/03/2013) * CBC W AUTO DIFFERENTIAL(Performed 02/03/2013) * CBC W AUTO DIFFERENTIAL(Performed 02/02/2013) * PHOSPHORUS BLOOD(Performed 02/02/2013) * MAGNESIUM BLOOD(Performed 02/02/2013) * BASIC METABOLIC PANEL (CALCIUM TOTAL)(Performed 02/02/2013) * BILIRUBIN TOTAL BLOOD(Performed 02/02/2013) * AST BLOOD(Performed 02/02/2013) * ALT(Performed 02/02/2013) * VAS RIGHT VENOUS DUPLEX UE(Performed 02/01/2013) * CBC W AUTO DIFFERENTIAL(Performed 02/01/2013) * PHOSPHORUS BLOOD(Performed 02/01/2013) * MAGNESIUM BLOOD(Performed 02/01/2013) * BASIC METABOLIC PANEL (CALCIUM TOTAL)(Performed 02/01/2013) * XR THORACIC SPINE 1VW(Performed 01/31/2013) * XR CERVICAL SPINE 2 OR 3VW(Performed 01/31/2013) * XR THORACIC SPINE 2VW(Performed 01/31/2013) * VAS BILATERAL VENOUS DUPLEX LE(Performed 01/31/2013) * CBC W AUTO DIFFERENTIAL(Performed 01/31/2013) * PHOSPHORUS BLOOD(Performed 01/31/2013) * MAGNESIUM BLOOD(Performed 01/31/2013) * COMPREHENSIVE METABOLIC PANEL(Performed 01/31/2013) * CBC W AUTO DIFFERENTIAL(Performed 01/30/2013) * COMPREHENSIVE METABOLIC PANEL(Performed 01/30/2013) * PHOSPHORUS BLOOD(Performed 01/30/2013) * MAGNESIUM BLOOD(Performed 01/30/2013) * LDH BLOOD(Performed 01/30/2013) * CULTURE BLOOD(Performed 01/30/2013) * CULTURE BLOOD(Performed 01/30/2013) * COMPREHENSIVE METABOLIC PANEL(Performed 01/27/2013) * PHOSPHORUS BLOOD(Performed 01/27/2013) * MAGNESIUM BLOOD(Performed 01/27/2013) * CBC W AUTO DIFFERENTIAL(Performed 01/27/2013) * CBC W AUTO DIFFERENTIAL(Performed 01/25/2013) * COMPREHENSIVE METABOLIC PANEL(Performed 01/25/2013) * PHOSPHORUS BLOOD(Performed 01/25/2013) * MAGNESIUM BLOOD(Performed 01/25/2013) * CBC W AUTO DIFFERENTIAL(Performed 01/23/2013) * LDH BLOOD(Performed 01/23/2013) * COMPREHENSIVE METABOLIC PANEL(Performed 01/23/2013) * LAB HISTORICAL RESULTS-ONBASE(Performed 01/21/2013) * COMPREHENSIVE METABOLIC PANEL(Performed 01/20/2013) * PHOSPHORUS BLOOD(Performed 01/20/2013) * MAGNESIUM BLOOD(Performed 01/20/2013) * CBC W AUTO DIFFERENTIAL(Performed 01/20/2013) * LAB HISTORICAL RESULTS-ONBASE(Performed 01/20/2013) * CBC W AUTO DIFFERENTIAL(Performed 01/18/2013) * COMPREHENSIVE METABOLIC PANEL(Performed 01/18/2013) * PHOSPHORUS BLOOD(Performed 01/18/2013) * MAGNESIUM BLOOD(Performed 01/18/2013) * CBC W AUTO DIFFERENTIAL(Performed 01/16/2013) * COMPREHENSIVE METABOLIC PANEL(Performed 01/16/2013) * PHOSPHORUS BLOOD(Performed 01/16/2013) * MAGNESIUM BLOOD(Performed 01/16/2013) * BASIC METABOLIC PANEL (CALCIUM TOTAL)(Performed 01/13/2013) * PHOSPHORUS BLOOD(Performed 01/13/2013) * MAGNESIUM BLOOD(Performed 01/13/2013) * CBC W AUTO DIFFERENTIAL(Performed 01/13/2013) * EKG 12-LEAD(Performed 01/13/2013) * EKG 12-LEAD(Performed 01/13/2013) * ANTIBODY SCREEN(Performed 01/12/2013) * CROSSMATCH RBC LEUKOREDUCED(Performed 01/12/2013) * BLOOD TYPE ABO+ RH PANEL(Performed 01/12/2013) * CBC W AUTO DIFFERENTIAL(Performed 01/12/2013) * BASIC METABOLIC PANEL (CALCIUM TOTAL)(Performed 01/12/2013) * PHOSPHORUS BLOOD(Performed 01/12/2013) * MAGNESIUM BLOOD(Performed 01/12/2013) * CBC W AUTO DIFFERENTIAL(Performed 01/11/2013) * PHOSPHORUS BLOOD(Performed 01/11/2013) * MAGNESIUM BLOOD(Performed 01/11/2013) * BASIC METABOLIC PANEL (CALCIUM TOTAL)(Performed 01/11/2013) * VAS RIGHT VENOUS DUPLEX UE(Performed 01/10/2013) * VANCOMYCIN LEVEL TROUGH(Performed 01/10/2013) * CBC W AUTO DIFFERENTIAL(Performed 01/10/2013) * PHOSPHORUS BLOOD(Performed 01/10/2013) * MAGNESIUM BLOOD(Performed 01/10/2013) * BASIC METABOLIC PANEL (CALCIUM TOTAL)(Performed 01/10/2013) * XR THORACIC SPINE 2VW(Performed 01/09/2013) * PET CT WHOLE BODY(Performed 01/09/2013) * CBC W AUTO DIFFERENTIAL(Performed 01/09/2013) * PHOSPHORUS BLOOD(Performed 01/09/2013) * MAGNESIUM BLOOD(Performed 01/09/2013) * BASIC METABOLIC PANEL (CALCIUM TOTAL)(Performed 01/09/2013) * GLUCOSE - POINT OF CARE (AMB) [facility](Performed 01/09/2013) * CT ANGIO CHEST PULM EMBOLISM(Performed 01/08/2013) * CULTURE BLOOD(Performed 01/08/2013) * CBC W AUTO DIFFERENTIAL(Performed 01/08/2013) * BASIC METABOLIC PANEL (CALCIUM TOTAL)(Performed 01/08/2013) * PT-INR [facility](Performed 01/08/2013) * PTT [facility](Performed 01/08/2013) * PLATELET COUNT AUTO(Performed 01/02/2013) * CBC W AUTO DIFFERENTIAL(Performed 01/02/2013) * PHOSPHORUS BLOOD(Performed 01/02/2013) * BASIC METABOLIC PANEL (CALCIUM TOTAL)(Performed 01/02/2013) * MAGNESIUM BLOOD(Performed 01/02/2013) * URINALYSIS W/MICROSCOPIC NO CULTURE(Performed 01/01/2013) * PLATELET COUNT AUTO(Performed 01/01/2013) * CULTURE URINE(Performed 01/01/2013) * CBC W AUTO DIFFERENTIAL(Performed 01/01/2013) * BASIC METABOLIC PANEL (CALCIUM TOTAL)(Performed 01/01/2013) * PHOSPHORUS BLOOD(Performed 01/01/2013) * MAGNESIUM BLOOD(Performed 01/01/2013) * PT-INR [facility](Performed 12/31/2012) * CBC W/O DIFFERENTIAL(Performed 12/31/2012) * CBC W AUTO DIFFERENTIAL(Performed 12/31/2012) * BASIC METABOLIC PANEL (CALCIUM TOTAL)(Performed 12/31/2012) * PHOSPHORUS BLOOD(Performed 12/31/2012) * MAGNESIUM BLOOD(Performed 12/31/2012) * HLA ANTIBODY SCREEN LUM CLASS 1 SAB(Performed 12/30/2012) * PLATELET COUNT AUTO(Performed 12/30/2012) * PLATELET COUNT AUTO(Performed 12/30/2012) * PLATELET COUNT AUTO(Performed 12/30/2012) * PREPARE PLATELET PHERESIS UNIT(S)(Performed 12/30/2012) * PREPARE PLATELET PHERESIS UNIT(S)(Performed 12/30/2012) * PREPARE PLATELET PHERESIS UNIT(S)(Performed 12/30/2012) * PREPARE PLATELET PHERESIS UNIT(S)(Performed 12/30/2012) * CBC W AUTO DIFFERENTIAL(Performed 12/30/2012) * BASIC METABOLIC PANEL (CALCIUM TOTAL)(Performed 12/30/2012) * PHOSPHORUS BLOOD(Performed 12/30/2012) * MAGNESIUM BLOOD(Performed 12/30/2012) * ANTIBODY SCREEN(Performed 12/29/2012) * BLOOD TYPE ABO+ RH PANEL(Performed 12/29/2012) * CROSSMATCH RBC LEUKOREDUCED(Performed 12/29/2012) * BLOOD TYPE ABO+ RH PANEL(Performed 12/29/2012) * CBC W AUTO DIFFERENTIAL(Performed 12/29/2012) * BASIC METABOLIC PANEL (CALCIUM TOTAL)(Performed 12/29/2012) * PHOSPHORUS BLOOD(Performed 12/29/2012) * MAGNESIUM BLOOD(Performed 12/29/2012) * C DIFFICILE BY PCR(Performed 12/28/2012) * C DIFFICILE GDH AG + TOXIN A+B(Performed 12/28/2012) * CBC W AUTO DIFFERENTIAL(Performed 12/28/2012) * BASIC METABOLIC PANEL (CALCIUM TOTAL)(Performed 12/28/2012) * PHOSPHORUS BLOOD(Performed 12/28/2012) * MAGNESIUM BLOOD(Performed 12/28/2012) * CBC W AUTO DIFFERENTIAL(Performed 12/27/2012) * HAPTOGLOBIN(Performed 12/27/2012) * LDH BLOOD(Performed 12/27/2012) * HEPATIC FUNCTION PANEL(Performed 12/27/2012) * RETIC COUNT(Performed 12/27/2012) * CBC W AUTO DIFFERENTIAL(Performed 12/27/2012) * BASIC METABOLIC PANEL (CALCIUM TOTAL)(Performed 12/27/2012) * PHOSPHORUS BLOOD(Performed 12/27/2012) * MAGNESIUM BLOOD(Performed 12/27/2012) * BASIC METABOLIC PANEL (CALCIUM TOTAL)(Performed 12/26/2012) * PHOSPHORUS BLOOD(Performed 12/26/2012) * MAGNESIUM BLOOD(Performed 12/26/2012) * CBC W AUTO DIFFERENTIAL(Performed 12/26/2012) * XR CHEST 1VW PORTABLE(Performed 12/25/2012) * CROSSMATCH RBC LEUKOREDUCED(Performed 12/25/2012) * TYPE + SCREEN PANEL(Performed 12/25/2012) * CROSSMATCH RBC LEUKOREDUCED(Performed 12/25/2012) * COMPREHENSIVE METABOLIC PANEL(Performed 12/25/2012) * CK + CKMB PANEL(Performed 12/25/2012) * TROPONIN I(Performed 12/25/2012) * PHOSPHORUS BLOOD(Performed 12/25/2012) * MAGNESIUM BLOOD(Performed 12/25/2012) * CBC W AUTO DIFFERENTIAL(Performed 12/25/2012) * CULTURE BLOOD(Performed 12/25/2012) * CULTURE BLOOD(Performed 12/25/2012) * CULTURE BLOOD(Performed 12/25/2012) * URINALYSIS W/MICROSCOPIC NO CULTURE(Performed 12/25/2012) * CULTURE URINE(Performed 12/25/2012) * CBC W AUTO DIFFERENTIAL(Performed 12/22/2012) * COMPREHENSIVE METABOLIC PANEL(Performed 12/22/2012) * LDH BLOOD(Performed 12/22/2012) * PTT [facility](Performed 12/22/2012) * PT-INR [facility](Performed 12/22/2012) * IR PICC LINE INSERT(Performed 12/21/2012) * IR US GUIDE VASCULAR ACCESS(Performed 12/21/2012) * IR JORGE CATH INSERT(Performed 12/21/2012) * CBC W AUTO DIFFERENTIAL(Performed 12/21/2012) * PT-INR [facility](Performed 12/21/2012) * LDH BLOOD(Performed 12/21/2012) * PTT [facility](Performed 12/21/2012) * COMPREHENSIVE METABOLIC PANEL(Performed 12/21/2012) * CBC W AUTO DIFFERENTIAL(Performed 12/20/2012) * PTT [facility](Performed 12/20/2012) * PT-INR [facility](Performed 12/20/2012) * COMPREHENSIVE METABOLIC PANEL(Performed 12/20/2012) * LDH BLOOD(Performed 12/20/2012) * XR THORACIC SPINE 2VW(Performed 12/19/2012) * CULTURE BLOOD(Performed 12/19/2012) * CULTURE BLOOD(Performed 12/19/2012) * CULTURE BLOOD(Performed 12/19/2012) * LDH BLOOD(Performed 12/19/2012) * CBC W AUTO DIFFERENTIAL(Performed 12/19/2012) * COMPREHENSIVE METABOLIC PANEL(Performed 12/19/2012) * CBC W AUTO DIFFERENTIAL(Performed 12/13/2012) * PT-INR [facility](Performed 12/13/2012) * LDH BLOOD(Performed 12/13/2012) * PHOSPHORUS BLOOD(Performed 12/13/2012) * MAGNESIUM BLOOD(Performed 12/13/2012) * COMPREHENSIVE METABOLIC PANEL(Performed 12/13/2012) * BILIRUBIN DIRECT(Performed 12/13/2012) * HLA ANTIBODY SCREEN LUM CLASS 1 SAB(Performed 12/12/2012) * HLA TYPING DNA LOW RESOLUTION A,B,C(Performed 12/12/2012) * PLATELET ANTIBODY PANEL(Performed 12/12/2012) * ANTIBODY SCREEN(Performed 12/12/2012) * BLOOD TYPE ABO+ RH PANEL(Performed 12/12/2012) * CROSSMATCH RBC LEUKOREDUCED(Performed 12/12/2012) * CBC W AUTO DIFFERENTIAL(Performed 12/12/2012) * BILIRUBIN DIRECT(Performed 12/12/2012) * LDH BLOOD(Performed 12/12/2012) * PHOSPHORUS BLOOD(Performed 12/12/2012) * MAGNESIUM BLOOD(Performed 12/12/2012) * COMPREHENSIVE METABOLIC PANEL(Performed 12/12/2012) * PT-INR SLH(Performed 12/12/2012) * PREPARE PLATELET PHERESIS UNIT(S)(Performed 12/11/2012) * CBC W AUTO DIFFERENTIAL(Performed 12/11/2012) * BILIRUBIN DIRECT(Performed 12/11/2012) * LDH BLOOD(Performed 12/11/2012) * PHOSPHORUS BLOOD(Performed 12/11/2012) * MAGNESIUM BLOOD(Performed 12/11/2012) * COMPREHENSIVE METABOLIC PANEL(Performed 12/11/2012) * PT-INR [facility]H(Performed 12/11/2012) * CBC W AUTO DIFFERENTIAL(Performed 12/10/2012) * LDH BLOOD(Performed 12/10/2012) * PHOSPHORUS BLOOD(Performed 12/10/2012) * MAGNESIUM BLOOD(Performed 12/10/2012) * COMPREHENSIVE METABOLIC PANEL(Performed 12/10/2012) * BILIRUBIN DIRECT(Performed 12/10/2012) * PT-INR SLH(Performed 12/10/2012) * URINALYSIS W/MICROSCOPIC NO CULTURE(Performed 12/09/2012) * CULTURE URINE(Performed 12/09/2012) * CBC W AUTO DIFFERENTIAL(Performed 12/09/2012) * LDH BLOOD(Performed 12/09/2012) * PHOSPHORUS BLOOD(Performed 12/09/2012) * MAGNESIUM BLOOD(Performed 12/09/2012) * COMPREHENSIVE METABOLIC PANEL(Performed 12/09/2012) * BILIRUBIN DIRECT(Performed 12/09/2012) * PT-INR SLH(Performed 12/09/2012) * CBC W AUTO DIFFERENTIAL(Performed 12/08/2012) * BILIRUBIN DIRECT(Performed 12/08/2012) * LDH BLOOD(Performed 12/08/2012) * PHOSPHORUS BLOOD(Performed 12/08/2012) * MAGNESIUM BLOOD(Performed 12/08/2012) * COMPREHENSIVE METABOLIC PANEL(Performed 12/08/2012) * PT-INR SLH(Performed 12/08/2012) * CBC W AUTO DIFFERENTIAL(Performed 12/07/2012) * BILIRUBIN DIRECT(Performed 12/07/2012) * LDH BLOOD(Performed 12/07/2012) * PHOSPHORUS BLOOD(Performed 12/07/2012) * MAGNESIUM BLOOD(Performed 12/07/2012) * COMPREHENSIVE METABOLIC PANEL(Performed 12/07/2012) * PT-INR [facility](Performed 12/07/2012) * CBC W AUTO DIFFERENTIAL(Performed 12/06/2012) * PT-INR [facility](Performed 12/06/2012) * LDH BLOOD(Performed 12/06/2012) * PHOSPHORUS BLOOD(Performed 12/06/2012) * MAGNESIUM BLOOD(Performed 12/06/2012) * COMPREHENSIVE METABOLIC PANEL(Performed 12/06/2012) * BILIRUBIN DIRECT(Performed 12/06/2012) * LDH BLOOD(Performed 12/05/2012) * PHOSPHORUS BLOOD(Performed 12/05/2012) * MAGNESIUM BLOOD(Performed 12/05/2012) * COMPREHENSIVE METABOLIC PANEL(Performed 12/05/2012) * BILIRUBIN DIRECT(Performed 12/05/2012) * PT-INR [facility](Performed 12/05/2012) * CBC W AUTO DIFFERENTIAL(Performed 12/05/2012) * POTASSIUM URINE RANDOM(Performed 12/04/2012) * UREA NITROGEN URINE RANDOM(Performed 12/04/2012) * CREATININE URINE RANDOM(Performed 12/04/2012) * CHLORIDE URINE RANDOM(Performed 12/04/2012) * CALCIUM URINE RANDOM(Performed 12/04/2012) * URINALYSIS W/MICROSCOPIC NO CULTURE(Performed 12/04/2012) * LDH BLOOD(Performed 12/04/2012) * PHOSPHORUS BLOOD(Performed 12/04/2012) * MAGNESIUM BLOOD(Performed 12/04/2012) * COMPREHENSIVE METABOLIC PANEL(Performed 12/04/2012) * BILIRUBIN DIRECT(Performed 12/04/2012) * PT-INR [facility](Performed 12/04/2012) * CBC W AUTO DIFFERENTIAL(Performed 12/04/2012) * CBC W AUTO DIFFERENTIAL(Performed 12/03/2012) * LDH BLOOD(Performed 12/03/2012) * PHOSPHORUS BLOOD(Performed 12/03/2012) * MAGNESIUM BLOOD(Performed 12/03/2012) * COMPREHENSIVE METABOLIC PANEL(Performed 12/03/2012) * BILIRUBIN DIRECT(Performed 12/03/2012) * PT-INR [facility](Performed 12/03/2012) * PT-INR [facility](Performed 12/02/2012) * CBC W AUTO DIFFERENTIAL(Performed 12/02/2012) * BILIRUBIN DIRECT(Performed 12/02/2012) * LDH BLOOD(Performed 12/02/2012) * PHOSPHORUS BLOOD(Performed 12/02/2012) * MAGNESIUM BLOOD(Performed 12/02/2012) * COMPREHENSIVE METABOLIC PANEL(Performed 12/02/2012) * LDH BLOOD(Performed 12/01/2012) * PHOSPHORUS BLOOD(Performed 12/01/2012) * MAGNESIUM BLOOD(Performed 12/01/2012) * COMPREHENSIVE METABOLIC PANEL(Performed 12/01/2012) * BILIRUBIN DIRECT(Performed 12/01/2012) * CBC W AUTO DIFFERENTIAL(Performed 12/01/2012) * PT-INR SLH(Performed 12/01/2012) * BILIRUBIN DIRECT(Performed 11/30/2012) * LDH BLOOD(Performed 11/30/2012) * PHOSPHORUS BLOOD(Performed 11/30/2012) * MAGNESIUM BLOOD(Performed 11/30/2012) * COMPREHENSIVE METABOLIC PANEL(Performed 11/30/2012) * CBC W AUTO DIFFERENTIAL(Performed 11/30/2012) * PT-INR SLH(Performed 11/30/2012) * IR PICC LINE INSERT(Performed 11/29/2012) * IR US GUIDE VASCULAR ACCESS(Performed 11/29/2012) * IR PICC LINE INSERT(Performed 11/29/2012) * URINALYSIS W/MICROSCOPIC NO CULTURE(Performed 11/29/2012) * CULTURE URINE(Performed 11/29/2012) * PT-INR [facility](Performed 11/29/2012) * LDH BLOOD(Performed 11/29/2012) * COMPREHENSIVE METABOLIC PANEL(Performed 11/29/2012) * CBC W AUTO DIFFERENTIAL(Performed 11/29/2012) * XR SCOLIOSIS 1VW(Performed 11/28/2012) * PET CT WHOLE BODY(Performed 11/28/2012) * CBC W AUTO DIFFERENTIAL(Performed 11/28/2012) * PT-INR SLH(Performed 11/28/2012) * LDH BLOOD(Performed 11/28/2012) * HEPATIC FUNCTION PANEL(Performed 11/28/2012) * PHOSPHORUS BLOOD(Performed 11/28/2012) * MAGNESIUM BLOOD(Performed 11/28/2012) * BASIC METABOLIC PANEL (CALCIUM TOTAL)(Performed 11/28/2012) * GLUCOSE - POINT OF CARE (AMB) SLU(Performed 11/28/2012) * CBC W AUTO DIFFERENTIAL(Performed 11/27/2012) * PT-INR [facility](Performed 11/27/2012) * LDH BLOOD(Performed 11/27/2012) * COMPREHENSIVE METABOLIC PANEL(Performed 11/27/2012) * CBC W AUTO DIFFERENTIAL(Performed 11/27/2012) * LDH BLOOD(Performed 11/27/2012) * HEPATIC FUNCTION PANEL(Performed 11/27/2012) * PHOSPHORUS BLOOD(Performed 11/27/2012) * MAGNESIUM BLOOD(Performed 11/27/2012) * BASIC METABOLIC PANEL (CALCIUM TOTAL)(Performed 11/27/2012) * PT-INR [facility](Performed 11/27/2012) * CBC W AUTO DIFFERENTIAL(Performed 11/26/2012) * LDH BLOOD(Performed 11/26/2012) * HEPATIC FUNCTION PANEL(Performed 11/26/2012) * PHOSPHORUS BLOOD(Performed 11/26/2012) * MAGNESIUM BLOOD(Performed 11/26/2012) * BASIC METABOLIC PANEL (CALCIUM TOTAL)(Performed 11/26/2012) * PT-INR SLH(Performed 11/26/2012) * CBC W AUTO DIFFERENTIAL(Performed 11/25/2012) * LDH BLOOD(Performed 11/25/2012) * HEPATIC FUNCTION PANEL(Performed 11/25/2012) * PHOSPHORUS BLOOD(Performed 11/25/2012) * MAGNESIUM BLOOD(Performed 11/25/2012) * BASIC METABOLIC PANEL (CALCIUM TOTAL)(Performed 11/25/2012) * PT-INR [facility](Performed 11/25/2012) * MRI CERVICAL SPINE WWO CONT(Performed 11/24/2012) * CULTURE BLOOD(Performed 11/24/2012) * CULTURE BLOOD(Performed 11/24/2012) * CULTURE URINE(Performed 11/24/2012) * CBC W AUTO DIFFERENTIAL(Performed 11/24/2012) * LDH BLOOD(Performed 11/24/2012) * HEPATIC FUNCTION PANEL(Performed 11/24/2012) * PHOSPHORUS BLOOD(Performed 11/24/2012) * MAGNESIUM BLOOD(Performed 11/24/2012) * BASIC METABOLIC PANEL (CALCIUM TOTAL)(Performed 11/24/2012) * PT-INR SLH(Performed 11/24/2012) * CULTURE URINE(Performed 11/23/2012) * CBC W AUTO DIFFERENTIAL(Performed 11/23/2012) * LDH BLOOD(Performed 11/23/2012) * HEPATIC FUNCTION PANEL(Performed 11/23/2012) * PHOSPHORUS BLOOD(Performed 11/23/2012) * MAGNESIUM BLOOD(Performed 11/23/2012) * BASIC METABOLIC PANEL (CALCIUM TOTAL)(Performed 11/23/2012) * PT-INR [facility](Performed 11/23/2012) * CULTURE BLOOD(Performed 2012) * CULTURE BLOOD(Performed 2012) * CULTURE BLOOD(Performed 2012) * CULTURE BLOOD(Performed 2012) * CBC W AUTO DIFFERENTIAL(Performed 2012) * PT-INR [facility]H(Performed 2012) * LDH BLOOD(Performed 2012) * HEPATIC FUNCTION PANEL(Performed 2012) * PHOSPHORUS BLOOD(Performed 2012) * MAGNESIUM BLOOD(Performed 2012) * BASIC METABOLIC PANEL (CALCIUM TOTAL)(Performed 2012) * GLUCOSE ACCUCHECK(Performed 11/21/2012) * C DIFFICILE GDH AG + TOXIN A+B(Performed 11/21/2012) * GLUCOSE ACCUCHECK(Performed 11/21/2012) * GLUCOSE ACCUCHECK(Performed 11/21/2012) * PT-INR [facility]H(Performed 11/21/2012) * CBC W AUTO DIFFERENTIAL(Performed 11/21/2012) * LDH BLOOD(Performed 11/21/2012) * HEPATIC FUNCTION PANEL(Performed 11/21/2012) * PHOSPHORUS BLOOD(Performed 11/21/2012) * MAGNESIUM BLOOD(Performed 11/21/2012) * BASIC METABOLIC PANEL (CALCIUM TOTAL)(Performed 11/21/2012) * GLUCOSE ACCUCHECK(Performed 11/20/2012) * GLUCOSE ACCUCHECK(Performed 11/20/2012) * URINALYSIS W/MICROSCOPIC NO CULTURE(Performed 11/20/2012) * CULTURE URINE(Performed 11/20/2012) * URINALYSIS W/MICROSCOPIC NO CULTURE(Performed 11/20/2012) * GLUCOSE ACCUCHECK(Performed 11/20/2012) * CULTURE URINE(Performed 11/20/2012) * PT-INR [facility](Performed 11/20/2012) * CBC W AUTO DIFFERENTIAL(Performed 11/20/2012) * HEPATIC FUNCTION PANEL(Performed 11/20/2012) * PHOSPHORUS BLOOD(Performed 11/20/2012) * MAGNESIUM BLOOD(Performed 11/20/2012) * BASIC METABOLIC PANEL (CALCIUM TOTAL)(Performed 11/20/2012) * LDH BLOOD(Performed 11/20/2012) * CULTURE BLOOD(Performed 11/19/2012) * CULTURE BLOOD(Performed 11/19/2012) * LUPUS ANTICOAGULANT PANEL(Performed 11/19/2012) * FABIANA VIPER VENOM DILUTE(Performed 11/19/2012) * PT-INR [facility](Performed 11/19/2012) * CBC W AUTO DIFFERENTIAL(Performed 11/19/2012) * LDH BLOOD(Performed 11/19/2012) * HEPATIC FUNCTION PANEL(Performed 11/19/2012) * PHOSPHORUS BLOOD(Performed 11/19/2012) * MAGNESIUM BLOOD(Performed 11/19/2012) * BASIC METABOLIC PANEL (CALCIUM TOTAL)(Performed 11/19/2012) * COMPREHENSIVE METABOLIC PANEL(Performed 11/18/2012) * CT ABDOMEN PELVIS W CONTRAST(Performed 11/18/2012) * XR ABD OBSTRUCTION SERIES 2VW(Performed 11/18/2012) * XR CHEST 1VW PORTABLE(Performed 11/18/2012) * VITAMIN K1(Performed 11/18/2012) * FACTOR II ASSAY(Performed 11/18/2012) * FACTOR IX ASSAY(Performed 11/18/2012) * FACTOR X ASSAY(Performed 11/18/2012) * FACTOR VII ASSAY(Performed 11/18/2012) * CBC W AUTO DIFFERENTIAL(Performed 11/18/2012) * LDH BLOOD(Performed 11/18/2012) * HEPATIC FUNCTION PANEL(Performed 11/18/2012) * PHOSPHORUS BLOOD(Performed 11/18/2012) * MAGNESIUM BLOOD(Performed 11/18/2012) * BASIC METABOLIC PANEL (CALCIUM TOTAL)(Performed 11/18/2012) * XR THORACIC SPINE 2VW(Performed 11/17/2012) * PT-INR SLH(Performed 11/17/2012) * LDH BLOOD(Performed 11/17/2012) * HEPATIC FUNCTION PANEL(Performed 11/17/2012) * PHOSPHORUS BLOOD(Performed 11/17/2012) * MAGNESIUM BLOOD(Performed 11/17/2012) * BASIC METABOLIC PANEL (CALCIUM TOTAL)(Performed 11/17/2012) * CBC W AUTO DIFFERENTIAL(Performed 11/17/2012) * VANCOMYCIN LEVEL TROUGH(Performed 11/16/2012) * THROMBIN TIME(Performed 11/16/2012) * PT MIX /(Performed 11/16/2012) * CBC W AUTO DIFFERENTIAL(Performed 11/16/2012) * URIC ACID BLOOD(Performed 11/16/2012) * LDH BLOOD(Performed 11/16/2012) * HEPATIC FUNCTION PANEL(Performed 11/16/2012) * PHOSPHORUS BLOOD(Performed 11/16/2012) * MAGNESIUM BLOOD(Performed 11/16/2012) * BASIC METABOLIC PANEL (CALCIUM TOTAL)(Performed 11/16/2012) * CULTURE URINE(Performed 11/16/2012) * URINALYSIS W/MICROSCOPIC NO CULTURE(Performed 11/16/2012) * CULTURE BLOOD(Performed 11/15/2012) * CULTURE BLOOD(Performed 11/15/2012) * VANCOMYCIN LEVEL TROUGH(Performed 11/15/2012) * PTT SLH(Performed 11/15/2012) * PT-INR [facility]H(Performed 11/15/2012) * PHOSPHORUS BLOOD(Performed 11/15/2012) * HEPATIC FUNCTION PANEL(Performed 11/15/2012) * MAGNESIUM BLOOD(Performed 11/15/2012) * BASIC METABOLIC PANEL (CALCIUM TOTAL)(Performed 11/15/2012) * CBC W/O DIFFERENTIAL(Performed 11/15/2012) * PREPARE FFP UNIT(S)(Performed 11/14/2012) * BASIC METABOLIC PANEL (CALCIUM TOTAL)(Performed 11/14/2012) * PHOSPHORUS BLOOD(Performed 11/14/2012) * PTT SLH(Performed 11/14/2012) * PT-INR [facility](Performed 11/14/2012) * CBC W/O DIFFERENTIAL(Performed 11/14/2012) * MAGNESIUM BLOOD(Performed 11/14/2012) * URINALYSIS NO MICROSCOPIC NO CULTURE(Performed 11/14/2012) * CULTURE URINE(Performed 11/14/2012) * XR CHEST 1VW PORTABLE(Performed 11/14/2012) * SODIUM WHOLE BLOOD(Performed 11/14/2012) * LACTIC ACID WHOLE BLOOD(Performed 11/14/2012) * POTASSIUM WHOLE BLD(Performed 11/14/2012) * GLUCOSE WHOLE BLOOD(Performed 11/14/2012) * CHLORIDE WHOLE BLOOD(Performed 11/14/2012) * CALCIUM IONIZED WHOLE BLOOD(Performed 11/14/2012) * BLOOD GASES ARTERIAL(Performed 11/14/2012) * CBC W/O DIFFERENTIAL(Performed 11/14/2012) * PT-INR [facility]H(Performed 11/14/2012) * FIBRINOGEN ACTIVITY(Performed 11/14/2012) * PTT SLH(Performed 11/14/2012) * FL YUSRA SURGERY(Performed 11/14/2012) * SODIUM WHOLE BLOOD(Performed 11/14/2012) * LACTIC ACID WHOLE BLOOD(Performed 11/14/2012) * GLUCOSE WHOLE BLOOD(Performed 11/14/2012) * POTASSIUM WHOLE BLD(Performed 11/14/2012) * CHLORIDE WHOLE BLOOD(Performed 11/14/2012) * CALCIUM IONIZED WHOLE BLOOD(Performed 11/14/2012) * BLOOD GASES ARTERIAL(Performed 11/14/2012) * MAGNESIUM BLOOD(Performed 11/14/2012) * BASIC METABOLIC PANEL (CALCIUM TOTAL)(Performed 11/14/2012) * PHOSPHORUS BLOOD(Performed 11/14/2012) * HEPATIC FUNCTION PANEL(Performed 11/14/2012) * CBC W AUTO DIFFERENTIAL(Performed 11/14/2012) * PT-INR SLH(Performed 11/14/2012) * CULTURE BLOOD(Performed 11/13/2012) * CULTURE BLOOD(Performed 11/13/2012) * URINALYSIS W/MICROSCOPIC NO CULTURE(Performed 11/13/2012) * CULTURE URINE(Performed 11/13/2012) * ANTIBODY SCREEN(Performed 11/13/2012) * CROSSMATCH RBC LEUKOREDUCED(Performed 11/13/2012) * CROSSMATCH RBC LEUKOREDUCED(Performed 11/13/2012) * BLOOD TYPE ABO+ RH PANEL(Performed 11/13/2012) * CROSSMATCH RBC LEUKOREDUCED(Performed 11/13/2012) * CROSSMATCH RBC LEUKOREDUCED(Performed 11/13/2012) * BLOOD TYPE ABO+ RH PANEL(Performed 11/13/2012) * MAGNESIUM BLOOD(Performed 11/13/2012) * BASIC METABOLIC PANEL (CALCIUM TOTAL)(Performed 11/13/2012) * PHOSPHORUS BLOOD(Performed 11/13/2012) * HEPATIC FUNCTION PANEL(Performed 11/13/2012) * PT-INR [facility](Performed 11/13/2012) * CBC W AUTO DIFFERENTIAL(Performed 11/13/2012) * PHOSPHORUS BLOOD(Performed 11/12/2012) * HEPATIC FUNCTION PANEL(Performed 11/12/2012) * MAGNESIUM BLOOD(Performed 11/12/2012) * BASIC METABOLIC PANEL (CALCIUM TOTAL)(Performed 11/12/2012) * PT-INR [facility](Performed 11/12/2012) * CBC W AUTO DIFFERENTIAL(Performed 11/12/2012) * MAGNESIUM BLOOD(Performed 11/11/2012) * BASIC METABOLIC PANEL (CALCIUM TOTAL)(Performed 11/11/2012) * PT-INR [facility](Performed 11/11/2012) * PHOSPHORUS BLOOD(Performed 11/11/2012) * HEPATIC FUNCTION PANEL(Performed 11/11/2012) * CBC W AUTO DIFFERENTIAL(Performed 11/11/2012) * CULTURE BLOOD(Performed 11/11/2012) * CULTURE BLOOD(Performed 11/11/2012) * URINALYSIS W/MICROSCOPIC NO CULTURE(Performed 11/11/2012) * CULTURE URINE(Performed 11/11/2012) * CULTURE SPUTUM+GRAM STAIN(Performed 11/11/2012) * XR CHEST 1VW PORTABLE(Performed 11/11/2012) * URINALYSIS W/MICROSCOPIC NO CULTURE(Performed 11/10/2012) * CULTURE URINE(Performed 11/10/2012) * US BREAST LEFT LTD(Performed 11/10/2012) * HCG BLOOD QUALITATIVE(Performed 11/10/2012) * TYPE + SCREEN PANEL(Performed 11/10/2012) * CBC W AUTO DIFFERENTIAL(Performed 11/10/2012) * PHOSPHORUS BLOOD(Performed 11/10/2012) * HEPATIC FUNCTION PANEL(Performed 11/10/2012) * MAGNESIUM BLOOD(Performed 11/10/2012) * BASIC METABOLIC PANEL (CALCIUM TOTAL)(Performed 11/10/2012) * PT-INR SLH(Performed 11/10/2012) * CULTURE BLOOD(Performed 11/10/2012) * CULTURE BLOOD(Performed 11/10/2012) * EKG 12-LEAD(Performed 11/09/2012) * URINALYSIS W/MICROSCOPIC NO CULTURE(Performed 11/09/2012) * CULTURE URINE(Performed 11/09/2012) * XR CHEST 1VW PORTABLE(Performed 11/09/2012) * CBC W AUTO DIFFERENTIAL(Performed 11/09/2012) * MAGNESIUM BLOOD(Performed 11/09/2012) * BASIC METABOLIC PANEL (CALCIUM TOTAL)(Performed 11/09/2012) * PHOSPHORUS BLOOD(Performed 11/09/2012) * HEPATIC FUNCTION PANEL(Performed 11/09/2012) * PT-INR [facility](Performed 11/09/2012) * CULTURE BLOOD(Performed 11/09/2012) * CULTURE BLOOD(Performed 11/09/2012) * URINALYSIS W/MICROSCOPIC NO CULTURE(Performed 11/08/2012) * URINALYSIS W/MICROSCOPIC NO CULTURE(Performed 11/08/2012) * CULTURE URINE(Performed 11/08/2012) * MAGNESIUM BLOOD(Performed 11/08/2012) * BASIC METABOLIC PANEL (CALCIUM TOTAL)(Performed 11/08/2012) * PHOSPHORUS BLOOD(Performed 11/08/2012) * HEPATIC FUNCTION PANEL(Performed 11/08/2012) * CBC W AUTO DIFFERENTIAL(Performed 11/08/2012) * PT-INR [facility](Performed 11/08/2012) * XR CHEST 1VW PORTABLE(Performed 11/07/2012) * CULTURE BLOOD(Performed 11/07/2012) * CULTURE BLOOD(Performed 11/07/2012) * CULTURE MRSA(Performed 11/07/2012) * CULTURE MRSA(Performed 11/07/2012) * CBC W AUTO DIFFERENTIAL(Performed 11/07/2012) * PHOSPHORUS BLOOD(Performed 11/07/2012) * HEPATIC FUNCTION PANEL(Performed 11/07/2012) * MAGNESIUM BLOOD(Performed 11/07/2012) * BASIC METABOLIC PANEL (CALCIUM TOTAL)(Performed 11/07/2012) * PT-INR [facility]H(Performed 11/07/2012) * MAGNESIUM BLOOD(Performed 11/06/2012) * BASIC METABOLIC PANEL (CALCIUM TOTAL)(Performed 11/06/2012) * URIC ACID BLOOD(Performed 11/06/2012) * PHOSPHORUS BLOOD(Performed 11/06/2012) * HEPATIC FUNCTION PANEL(Performed 11/06/2012) * CBC W AUTO DIFFERENTIAL(Performed 11/06/2012) * PT-INR [facility](Performed 11/06/2012) * CT THORACIC SPINE WO CONTRAST(Performed 11/05/2012) * XR PANOREX(Performed 11/05/2012) * XR THORACIC SPINE 2VW(Performed 11/05/2012) * PHOSPHORUS BLOOD(Performed 11/05/2012) * HEPATIC FUNCTION PANEL(Performed 11/05/2012) * MAGNESIUM BLOOD(Performed 11/05/2012) * BASIC METABOLIC PANEL (CALCIUM TOTAL)(Performed 11/05/2012) * PT-INR [facility](Performed 11/05/2012) * CBC W AUTO DIFFERENTIAL(Performed 11/05/2012) * CHROMOSOME ANALYSIS BLOOD PANEL(Performed 11/04/2012) * CYTOGENETICS CANCER PANEL(Performed 11/04/2012) * CYTOGENETICS CANCER PANEL(Performed 11/04/2012) * FLOW CYTOMETRY PANEL(Performed 11/04/2012) * URIC ACID BLOOD(Performed 11/04/2012) * MRI LUMBAR SPINE WWO CONTRAST(Performed 11/04/2012) * MRI CERVICAL SPINE WWO CONT(Performed 11/04/2012) * MRI THORACIC SPINE WWO CONT(Performed 11/04/2012) * NM CARDIAC MUGA SCAN(Performed 11/04/2012) * PFT-LAB(Performed 11/04/2012) * HEPATIC FUNCTION PANEL(Performed 11/04/2012) * PHOSPHORUS BLOOD(Performed 11/04/2012) * MAGNESIUM BLOOD(Performed 11/04/2012) * BASIC METABOLIC PANEL (CALCIUM TOTAL)(Performed 11/04/2012) * CBC W AUTO DIFFERENTIAL(Performed 11/04/2012) * PT-INR SLH(Performed 11/04/2012) * XR CHEST 1VW PORTABLE(Performed 11/04/2012) * LAB HISTORICAL RESULTS-ONBASE(Performed 11/04/2012) * LAB HISTORICAL RESULTS-ONBASE(Performed 11/04/2012) * LAB HISTORICAL RESULTS-ONBASE(Performed 11/04/2012) * LAB HISTORICAL RESULTS-ONBASE(Performed 11/04/2012) * LAB HISTORICAL RESULTS-ONBASE(Performed 11/04/2012) * PATHOLOGY/GENETICS HISTORICAL-ONBASE(Performed 11/04/2012) * PROTEIN ELECTROPHORESIS URINE RANDOM(Performed 11/03/2012) * HCG URINE QUALITATIVE(Performed 11/03/2012) * URINALYSIS REFLEX TO MICROSCOPIC NO CULTURE(Performed 11/03/2012) * URINALYSIS REFLEX TO MICROSCOPIC NO CULTURE(Performed 11/03/2012) * CULTURE URINE(Performed 11/03/2012) * CYTOMEGALOVIRUS ANTIBODY IGG BLOOD(Performed 11/03/2012) * HEPATITIS BE ANTIGEN(Performed 11/03/2012) * HEPATITIS BE ANTIBODY(Performed 11/03/2012) * HEPATITIS A ANTIBODY(Performed 11/03/2012) * URIC ACID BLOOD(Performed 11/03/2012) * ERYTHROCYTE SEDIMENTATION RATE(Performed 11/03/2012) * HEPATITIS B SURFACE ANTIGEN W RFLX CONFIRMATION(Performed 11/03/2012) * HEPATITIS B SURFACE ANTIBODY(Performed 11/03/2012) * HEPATITIS A IGM ANTIBODY(Performed 11/03/2012) * HEPATITIS B CORE ANTIBODY IGM(Performed 11/03/2012) * HIV-1 HIV-2 ANTIGEN/ANTIBODY(Performed 11/03/2012) * HEPATITIS C ANTIBODY(Performed 11/03/2012) * HEPATIC FUNCTION PANEL(Performed 11/03/2012) * BASIC METABOLIC PANEL (CALCIUM TOTAL)(Performed 11/03/2012) * LDH BLOOD(Performed 11/03/2012) * RETIC COUNT(Performed 11/03/2012) * CBC W AUTO DIFFERENTIAL(Performed 11/03/2012) * CULTURE BLOOD(Performed 11/03/2012) * CULTURE BLOOD(Performed 11/03/2012) * GLUCOSE - POINT OF CARE (AMB) [facility](Performed 08/02/1998) * GLUCOSE - POINT OF CARE (AMB) [facility](Performed 08/02/1998) * GLUCOSE - POINT OF CARE (AMB) [facility](Performed 08/02/1998) * GLUCOSE - POINT OF CARE (AMB) [facility](Performed 08/02/1998) Results * AMBULATORY OXIMETRY (05/22/2024 12:11 PM CDT) Impressions Turner Hunter MD - 05/22/2024 12:11 PM CDT [facility] DEPARTMENT OF PULMONARY, CRITICAL CARE, AND [...] of Pulmonary, Critical Care, and Sleep Medicine [facility] [employer] I have personally reviewed and agree with the fellow's interpretation. MD Prieto Her Christopher R, MD - 05/22/2024 12:11 PM CDT Dar Sheriff MD ? 05/22/2024 ??9:26 PM Don Manuel MD RESPIRATORY THERAPY ORDERABLES * SIX MINUTE WALK (05/22/2024 12:10 PM CDT) Impressions Turner Hunter MD - 05/22/2024 12:10 PM CDT [facility] DEPARTMENT OF PULMONARY, CRITICAL CARE, AND [...] Sheriff MD Pulmonary and Critical Care Fellow [facility] Pager Number [phone] I have personally reviewed and agree with the fellow's interpretation. MD Prieto Her Christopher R, MD - 05/22/2024 12:10 PM CDT Dar Sheriff MD ? 05/22/2024 ??9:26 PM Don Manuel MD RESPIRATORY THERAPY ORDERABLES * COMPLETE PFT W/WO BRONCHODILATOR (05/22/2024 12:09 PM CDT) Impressions Turner Hunter MD - 05/22/2024 12:09 PM CDT [facility] DEPARTMENT OF PULMONARY, CRITICAL CARE, AND [...] of Pulmonary, Critical Care, and Sleep Medicine [facility] [employer] I have personally reviewed and agree with the fellow's interpretation. Turner Hunter MD Narrative Turner Hunter MD - 05/22/2024 12:09 PM CDT Dar Sheriff MD ? 05/22/2024 ??9:27 PM Don Manuel MD RESPIRATORY THERAPY ORDERABLES * CT Chest Wo Cont And Hires (05/22/2024 10:02 AM CDT) Only the most recent of2 resultswithin the time period is included. Anatomical Region Laterality Modality Chest Computed Tomogra phy 05/22/2024 10:4 5 AM CDT Impressions 05/22/2024 7:55 PM CDT Impression: 1.Moderate air trapping concerning for small airway disease.. > Dictated by Hanna Tyson MD, MD (transporter radiology). I, Madhu Olivier MD have personally reviewed [...] > Dictated by Hanna Tyson MD, MD (transporter radiology). I, Madhu Olivier MD have personally reviewed and interpreted this examination/study. > Interpreting Provider: Madhu Olivier MD on 05/22/2024 7:[address] ORDERABLES * NV TANGNTL BX SKIN SINGLE LES (05/12/2024 4:34 [...] and sent to dermatopathology. Mera Vitale MD [facility] Dermatology Resident Jaun Mascorro MD PROCEDURE/MINOR SURG ICAL ORDERABLES * NV DESTRUCT BENIGN LESION, 1-14 (05/12/2024 4:33 PM CDT) Narrative Jaun Mascorro MD - 05/12/2024 4:33 PM CDT Mera Vitale MD ? 05/12/2024 ??4:33 PM Diagnosis and treatment options discussed. Cryotherapy (Liquid Nitrogen) to 3 ISK x 10 seconds each. Number of cycles: 1. Wound care reviewed. Mera Vitale MD [facility] Dermatology Resident Jaun Mascorro MD PROCEDURE/MINOR SURG ICAL ORDERABLES * DERMATOPATHOLOGY (05/12/2024 12:00 AM CDT) Only the most recent of3 resultswithin the time period is included. Case Report Dermatopathology Report ? Case: [id number] ? Authorizing Provider: ??Jaun Mascorro MD ? [...] specimen consists of a shave biopsy measuring [id number] mm. Jar 0. 4:29 PM CDT DERMATOPATHOLOGY [...] characteristic determined by the Dermatopathology Laboratory at [facility], directed by Dr. Buddy Fisher. These tests need not be, and therefore are not, approved by the [place] Food and Drug Administration. The tests are used for clinical purposes. Billing Codes Specimen Charges Stain Charges 29727 1 4:29 PM CDT DERMATOPATHOLOGY LABORATORY Embedded Images 4:29 PM CDT DERMATOPATHOLOGY LABORATORY Pathology/Cytolog y TISSUE SPECIMEN FROM SKIN / Unknown 05/12/2024 05/15/2024 6:42 AM CDT Jaun Mascorro MD LAB - PATHOLOGY/CYTO LOGY ORDERABLES DERMATOPATHOLOGY LABORATORY [facility] - Department of Dermatology [address] [phone] * SS-A (SJOGREN'S) 52+60 ANTIBODIES (04/11/2024 4:52 PM CDT) SS-A 52 Antibody 2 0 - 40 AU/mL 04/13/2024 10:22 PM CDT [facility] ([facility]) Comment: INTERPRETIVE INFORMATION: SSA-52 (Ro52) (SONU) Antibody, IgG ??29 AU/mL or Less ............. Negative ??30 - 40 AU/mL ................ Equivocal ??41 AU/mL or Greater .......... Positive SSA-52 (Ro52) and/or SSA-60 (Ro60) antibodies are associated with a diagnosis of Sjogren syndrome, systemic lupus erythematosus (SLE), and systemic sclerosis. SSA-52 antibody overlaps significantly with the major SSc-related antibodies. SSA-52 (Ro52) antibody occurs frequently in patients with inflammatory myopathies, often in the presence of interstitial lung disease. SS-A 60 Antibody 0 0 - 40 AU/mL 04/13/2024 10:22 PM CDT [facility] ([facility]) Comment: REFERENCE INTERVAL: SSA-60 (Ro60) (SONU) Antibody, IgG ??29 AU/mL or Less ............. Negative ??30 - 40 AU/mL ................ Equivocal ??41 AU/mL or Greater .......... Positive Performed By: [facility] [address] [place] [address] Bridge Game Director: Sivakumar Levi MD, PhD CLIA Number: [id number] Blood BLOOD SPECIMEN / Unknown Lab Venipuncture / Unknown 04/11/2024 4:52 PM CDT 04/11/2024 5:31 PM CDT Don Manuel MD LAB - CHEMISTRY CHRISTOPHER DE LA GARZA [facility]) [address] * MIKE/BARREL FILLER HEAD (SONU) ANTIBODY IGG (04/11/2024 4:52 PM CDT) Pathologist [facility] Mike/BARREL FILLER HEAD (SONU) Antibody IgG 2 0 - 19 Units 04/13/2024 12:36 PM CDT [facility] ([facility]) Comment: INTERPRETIVE INFORMATION: Mike/BARREL FILLER HEAD (SONU) Antibody, IgG ??19 Units or Less ............. Negative ??20 to 39 Units ............... Weak Positive ??40 to 80 Units ............... Moderate Positive ??81 Units or greater .......... Strong Positive Mike/BARREL FILLER HEAD antibodies are frequently seen in patients with mixed connective tissue disease (MCTD) and are also associated with other systemic autoimmune rheumatic diseases (SARDs) such as systemic lupus erythematosus (SLE), systemic sclerosis, and myositis. Antibodies targeting the Mike/BARREL FILLER HEAD antigenic complex also recognize Mike antigens, therefore, the Mike antibody response must be considered when interpreting these results. Performed By: [facility] [address] [place] [address] Bridge Game Director: Sivakumar Levi MD, PhD CLIA Number: [id number] Blood BLOOD SPECIMEN / Unknown Lab Venipuncture / Unknown 04/11/2024 4:52 PM CDT 04/11/2024 5:09 PM CDT Don Manuel MD LAB - CHEMISTRY CHRISTOPHER DE LA GARZA [facility]) [address] * MYOSITIS ANTIBODY PANEL COMPREHENSIVE (04/11/2024 4:52 PM CDT) [facility] SAE1 (SUMO activating enzyme) Ab Negative Negative 04/19/2024 4:47 PM CDT [facility]) NXP2 (Nuclear matrix protein-2) Ab Negative Negative 04/19/2024 4:47 PM CDT [facility]) MDA5 (CADM-140) Ab Negative Negative 2023 4:47 PM CDT [facility] ([facility]) TIF-1 gamma (155 kDa) Ab Negative Negative 04/19/2024 4:47 PM CDT [facility] ([facility]) Myositis Panel Interpretive Data See Note 04/19/2024 4:47 PM CDT [facility] ([facility]) Comment: INTERPRETIVE INFORMATION: Extended Myositis Panel If present, myositis-specific antibodies (MSA) are specific for myositis, and may be useful in establishing diagnosis as well as prognosis. MSAs are generally regarded as mutually exclusive with rare exceptions; the occurrence of two or more MSAs should be carefully evaluated in the context of patient's clinical presentation. Myositis-associated antibodies (MAA) may be found in patients with CTD including overlap syndromes, and are generally not specific for myositis. The following table will help in identifying the association of any antibodies found as either MSAs or Audrey. Antibody Specificity . . . . . . . . . . . . MSA . . . . MAA SSA 52 (Ro) (SONU) Antibody IgG . . . . . . . . . . . . . ??X SSA 60 (Ro) (SONU) Antibody IgG . . . . . . . . . . . . . ??X Mike/BARREL FILLER HEAD (SONU) Ab, IgG ??. . . . . . . . . . . . . . . . ??X Susanne-1 (histidyl-tRNA synthetase) Ab, IgG ??. . ??X PL-12 (alanyl-tRNA synthetase) Antibody ??. . ??X PL-7 (threonyl-tRNA synthetase) Antibody . . ??X EJ (glycyl-tRNA synthetase) Antibody . . . . ??X OJ (isoleucyl-tRNA synthetase) Antibody ??. . ??X SRP (Signal Recognition Particle) Ab . . . . ??X Ku Antibody ??. . . . . . . . . . . . . . . . . . . . . . ??X PM/SCL 100 Antibody, IgG . . . . . . . . . . . . . . . . ??X Fibrillarin (U3 BARREL FILLER HEAD) Ab, IgG . . . . . . . . . . . . . . ??X Mi-2 (nuclear helicase protein) Antibody . . ??X P155/140 Antibody ??. . . . . . . . . . . . . ??X TIF-1 gamma (155 kDa) Ab . . . . . . . . . . ??X SAE1 (SUMO activating enzyme) Ab . . . . . . ??X MDA5 (CADM-140) Ab ?? . . . . . . . . . . . . ??X NXP2 (Nuclear matrix proten-2)Ab . . . . . . ??X This test was developed and its performance characteristics determined by [facility]. It has not been cleared or approved by the US Food and Drug Administration. This test was performed in a CLIA certified laboratory and is intended for clinical purposes. Mi-2 Antibody Negative Negative 04/19/2024 4:47 PM CDT [facility]) P155/140 Antibody Negative Negative 024 4:47 PM CDT [facility]) PL-12 Antibody Negative Negative 04/19/2024 4:47 PM CDT [facility]) PL-7 Antibody Negative Negative 04/19/2024 4:47 PM CDT [facility]) OJ Antibody Negative Negative 04/19/2024 4:47 PM CDT [facility]) EJ Antibody Negative Negative 04/19/2024 4:47 PM CDT [facility]) SRP Antibody Negative Negative 04/19/2024 4:47 PM CDT [facility]) Susanne-1 Antibody IgG 0 0 - 40 AU/mL 04/19/2024 4:47 PM CDT [facility]) Comment: INTERPRETIVE INFORMATION: ??Susanne-1 Antibody, IgG ??29 AU/mL or less.........Negative ??30-40 AU/mL..............Equivocal ??41 AU/mL or greater......Positive Presence of Susanne-1 (antihistidyl transfer RNA [t-RNA' synthetase) antibody is associated with polymyositis and may also be seen in patients with dermatomyositis. Susanne-1 antibody is associated with pulmonary involvement (interstitial lung disease), Raynaud phenomenon, arthritis, and apparatus repair mechanic's hands (implicated in antisynthetase syndrome). KU Antibody Negative Negative 04/19/2024 4:47 PM CDT [facility] ([facility]) Mike/BARREL FILLER HEAD (SONU) Antibody IgG 3 0 - 19 Units 04/19/2024 4:47 PM CDT [facility] ([facility]) Comment: INTERPRETIVE INFORMATION: Mike/BARREL FILLER HEAD (SONU) Antibody, IgG ??19 Units or Less ............. Negative ??20 to 39 Units ............... Weak Positive ??40 to 80 Units ............... Moderate Positive ??81 Units or greater .......... Strong Positive Mike/BARREL FILLER HEAD antibodies are frequently seen in patients with mixed connective tissue disease (MCTD) and are also associated with other systemic autoimmune rheumatic diseases (SARDs) such as systemic lupus erythematosus (SLE), systemic sclerosis, and myositis. Antibodies targeting the Mike/BARREL FILLER HEAD antigenic complex also recognize Mike antigens, therefore, the Mike antibody response must be considered when interpreting these results. PM/Scl 100 Antibody IgG Negative Negative 04/19/2024 4:47 PM CDT [facility] ([facility]) Comment: INTERPRETIVE INFORMATION: PM/Scl-100 Antibody, IgG by ?Immunoblot The presence of PM/Scl-100 IgG antibody along with a positive AURY IFA nucleolar pattern is associated with connective tissue diseases such as polymyositis (PM), dermatomyositis (DM), systemic sclerosis (SSc), and polymyositis/systemic sclerosis overlap syndrome. The clinical relevance of PM/Scl-100 IgG antibody with a negative AURY IFA nucleolar pattern is unknown. PM/Scl-100 is the main target epitope of the PM/Scl complex, although antibodies to other targets not detected by this assay may occur. This test was developed and its performance characteristics determined by [facility]. It has not been cleared or approved by the US Food and Drug Administration. This test was performed in a CLIA certified laboratory and is intended for clinical purposes. SS-A 52 Antibody 2 0 - 40 AU/mL 04/19/2024 4:47 PM CDT [facility] ([facility]) Comment: INTERPRETIVE INFORMATION: SSA-52 (Ro52) (SONU) Antibody, IgG ??29 AU/mL or Less ............. Negative ??30 - 40 AU/mL ................ Equivocal ??41 AU/mL or Greater .......... Positive SSA-52 (Ro52) and/or SSA-60 (Ro60) antibodies are associated with a diagnosis of Sjogren syndrome, systemic lupus erythematosus (SLE), and systemic sclerosis. SSA-52 antibody overlaps significantly with the major SSc-related antibodies. SSA-52 (Ro52) antibody occurs frequently in patients with inflammatory myopathies, often in the presence of interstitial lung disease. SS-A 60 Antibody 0 0 - 40 AU/mL 04/19/2024 4:47 PM [facility] ([facility]) Comment: REFERENCE INTERVAL: SSA-60 (Ro60) (SONU) Antibody, IgG ??29 AU/mL or Less ............. Negative ??30 - 40 AU/mL ................ Equivocal ??41 AU/mL or Greater .......... Positive Fibrillarin (U3 BARREL FILLER HEAD) Antibody IgG Negative Negative 04/19/2024 4:47 PM [facility] ([facility]) Comment: Interpretive Information: Fibrillarin (U3 BARREL FILLER HEAD) Antibody, IgG The presence of fibrillarin (U3-BARREL FILLER HEAD) IgG antibodies in association with an AURY IFA nucleolar pattern is suggestive of systemic sclerosis (SSc). In SSc, these antibodies are associated with distinct clinical features, such as younger age at disease onset, frequent internal organ involvement (pulmonary hypertension, myositis and renal disease). Fibrillarin antibodies are detected more frequently in patients with SSc compared to other ethnic groups. Strong correlation with AURY IFA results is recommended. In a multi-ethnic cohort of SSc patients (n=98), U3-BARREL FILLER HEAD antibodies detected by immunoblot had an agreement of 98.9 percent with the gold standard immunoprecipitation (IP) assay. Approximately 71 percent (5/7) of the borderline U3-BARREL FILLER HEAD results with AURY nucleolar pattern in this cohort were IP negative. This test was developed and its performance characteristics determined by [facility]. It has not been cleared or approved by the US Food and Drug Administration. This test was performed in a CLIA certified laboratory and is intended for clinical purposes. Performed By: [facility] [address] [place] [id number] Bridge Game Director: Sivakumar Levi MD, PhD CLIA Number: [id number] Blood BLOOD SPECIMEN / Unknown Lab Venipuncture / Unknown 04/11/2024 4:52 PM CDT 04/11/2024 5:31 PM CDT Don Manuel MD LAB - CHEMISTRY CHRISTOPHER DE LA GARZA [facility] ([facility]) [address] [place] [address] * SMOOTH MUSCLE ANTIBODY W REFLEX TITER (04/11/2024 4:52 PM CDT) F-Actin Antibody IgG 2 0 - 19 Units 04/13/2024 5:18 AM CDT [facility] ([facility]) Comment: If F-Actin (Smooth Muscle) Antibody, IgG is negative, the Smooth Muscle Antibody titer by IFA is not performed. REFERENCE INTERVAL: F-Actin (Smooth Muscle) Antibody, IgG by ?SINCERE ??19 Units or less ....... Negative ??20 - 30 Units .......... Weak Positive-Suggest repeat ? testing in two to three weeks ? with fresh specimen. ??31 Units or greater..... Positive-Suggestive of ? autoimmune hepatitis type 1 ? or chronic active hepatitis. F-actin IgG antibodies have been shown to have increased sensitivity for autoimmune hepatitis (AIH) but lower specificity than smooth muscle antibodies (SMA). F-actin IgG antibodies can also be seen in SMA-negative disease controls (non-AIH), especially in patients with primary biliary cirrhosis and chronic hepatitis C infections. Some patients with AIH may be SMA-positive but negative for F-actin IgG. Consider testing for SMA by IFA if suspicion for AIH is strong. Performed By: [facility] [address] [place] [address] Bridge Game Director: Sivakumar Levi MD, PhD CLIA Number: [id number] Blood BLOOD SPECIMEN / Unknown Lab Venipuncture / Unknown 04/11/2024 4:52 PM CDT 04/11/2024 5:39 PM CDT Don Manuel MD LAB - SEROLOGY ORDER GITA Performing Organization Address City/[facility]/ZIP Co de Phone Number [facility]) [address] [place] [phone] [place] [address] * HIV-1 HIV-2 ANTIBODY + HIV P24 AG PANEL (04/11/2024 4:52 PM CDT) HIV Antigen/Antibod y 1 & 2 Non-reacti ve Non-react teena 04/11/2024 6:[address] [facility] Comment:No Laboratory eviden ce of HIV infection. Blood BLOOD SPECIMEN / Unknown Lab Venipuncture / Unknown 04/11/2024 4:52 PM CDT 04/11/2024 5:32 PM CDT Don Manuel MD LAB - CHEMISTRY ORDE RABYASH [facility] [address] [place] [id number], [place] [phone] * CYCLIC CITRUL PEPTIDE ANTIBODY IGG/IGA (CCP) (04/11/2024 4:52 PM CDT) CCP Antibodies IgG/IgA 4 0 - 19 units 04/13/2024 3:10 PM CDT [facility] ([facility]) Comment: ?Negative ? <20 ?Weak positive ?20 - 39 ?Moderate positive ??40 - 59 ?Strong positive ?>59 Blood BLOOD SPECIMEN / Unknown Lab Venipuncture / Unknown 04/11/2024 4:52 PM CDT 04/11/2024 5:31 PM CDT Narrative [facility] ([facility]) - 04/13/2024 3:10 PM CDT Performed at: ??01 - [facility] [address] [place], [place] ??[id number] Marble Cleaner: Edison Chavez PhD, Phone: ??[phone] Don Manuel MD LAB - SEROLOGY ORDER GITA LOCATED WITHIN [facility]) [address] [place] [address], [facility] * DNA ANTIBODY DS CRITHIDIA TITER (04/11/2024 4:52 PM CDT) dsDNA Antibody IgG <1:10 <1:10 2023 12:15 AM CDT [facility] ([facility]) Comment: INTERPRETIVE INFORMATION: Double-Stranded DNA (dsDNA) Antibody, IgG by IFA (using Crithidia luciliae) Positivity for anti-double stranded DNA (anti-dsDNA) IgG antibody is a diagnostic criterion of systemic lupus erythematosus (SLE). The presence of the anti-dsDNA IgG antibody is identified by IFA titer (Crithidia luciliae indirect fluorescent test [JACINDA'). JACINDA is highly specific for SLE with a sensitivity of 50-60 percent. Some patients with early or inactive SLE may be positive for anti-dsDNA IgG by SINCERE but negative by JACINDA. If the JACINDA result is negative but the patient has a positive SINCERE and clinical suspicion remains, consider antinuclear antibody (AURY) testing by IFA. Additional information and recommendations for testing may be found at [email or web address]. Performed By: [facility] [address] [place] [address] Bridge Game Director: Sivakumar Levi MD, PhD CLIA Number: [id number] Blood BLOOD SPECIMEN / Unknown Lab Venipuncture / Unknown 04/11/2024 4:52 PM CDT 04/11/2024 5:30 PM CDT Don Manuel MD LAB - SEROLOGY ORDER GITA [facility]) [address] [place] [address], [facility] * ANCA VASCULITIS PANEL (04/11/2024 4:52 PM CDT) Myeloperoxidase Antibody 0 0 - 19 AU/mL 04/14/2024 11:59 PM CDT [facility] ([facility]) Comment: INTERPRETIVE INFORMATION: Myeloperoxidase Abs, IgG ??19 AU/mL or Less ......... Negative ??20-25 AU/mL .............. Equivocal ??26 AU/mL or Greater ...... Positive Approximately 90% of patients with a P-ANCA pattern by IFA have antibodies specific for MPO. Serine Proteinase 3 IgG 0 0 - 19 AU/mL 04/14/2024 11:59 PM CDT [facility] ([facility]) Comment: INTERPRETIVE INFORMATION: Serine Proteinase 3, IgG ??19 AU/mL or Less ........ Negative ??20-25 AU/mL ............. Equivocal ??26 AU/mL or Greater ..... Positive Approximately 85% of patients with a C-ANCA pattern by IFA have antibodies specific for PR3. ANCA Titer IFA <1:20 <1:20 04/14/2024 11:59 PM CDT [facility] ([facility]) ANCA Pattern IFA None Detected None Detected 04/14/2024 11:59 PM CDT [facility] ([facility]) Comment: INTERPRETIVE INFORMATION: ANCA IFA Pattern Neutrophil Cytoplasmic Antibodies (C-ANCA = granular cytoplasmic staining, P-ANCA = perinuclear staining) are found in the serum of over 90 percent of patients with certain necrotizing systemic vasculitides, and usually in less than 5 percent of patients with collagen vascular disease or arthritis. Performed By: [facility] [address] [place] [address] Bridge Game Director: Sivakumar Levi MD, PhD CLIA Number: [id number] Blood BLOOD SPECIMEN / Unknown Lab Venipuncture / Unknown 04/11/2024 4:52 PM CDT 04/11/2024 5:09 PM CDT Don Manuel MD LAB - CHEMISTRY CHRISTOPHER DE LA GARZA [facility] Organization Address City/State/ZIP Co de Phone Number [facility] ([facility]) [address] [place] [id number], [facility] * PNEUMONITIS HYPERSENSITIVE PANEL (04/11/2024 4:52 PM CDT) Allergen Feather Mix Negative Negative kU/L 04/17/2024 1:59 AM CDT [facility] ([facility]) Aspergillus fumigatus 1 None Detected None Detected 04/17/2024 1:59 AM CDT [facility] ([facility]) Aspergillus fumigatus 6 See Note None Detected 04/17/2024 1:59 AM CDT [facility] ([facility]) Comment: A. fumigatus #6 Ab, Precipitin testing not performed due to reagent backorder. A credit will be issued for this component. Aureobasidium Pullulans None Detected None Detected 04/17/2024 1:59 AM CDT [facility] ([facility]) [place] Serum None Detected None Detected 04/17/2024 1:59 AM CDT [facility] ([facility]) Micropolyspora faeni None Detected None Detected 04/17/2024 1:59 AM CDT [facility] ([facility]) Aspergillus flavus None Detected None Detected 04/17/2024 1:59 AM CDT [facility] ([facility]) Aspergillus fumigatus 2 None Detected None Detected 04/17/2024 1:59 AM CDT [facility] ([facility]) Aspergillus fumigatus 3 None Detected None Detected 04/17/2024 1:59 AM CDT [facility] ([facility]) Saccharomonospora viridis None Detected None Detected 04/17/2024 1:59 AM CDT [facility] ([facility]) Thermoactinomyces candidus None Detected None Detected 04/17/2024 1:59 AM CDT [facility] ([facility]) Comment: Testing includes antibodies directed at Aureobasidium pullulans, Aspergillus flavus, Aspergillus fumigatus #1, Aspergillus fumigatus #2, Aspergillus fumigatus #3, Aspergillus fumigatus #6, Micropolyspora faeni, [place] Serum, Saccharomonospora viridis, and Thermoactinomyces candidus. Allergen Phoma betae <0.10 <=0.34 kU/L 04/17/2024 1:59 AM CDT [facility] ([facility]) Allergen Beef <0.10 <=0.34 kU/L 04/17/2024 1:59 AM CDT [facility] ([facility]) Allergen Pork <0.10 <=0.34 kU/L 04/17/2024 1:59 AM CDT [facility] ([facility]) Immunocap Score See Note 1:59 AM CDT [facility] ([facility]) Comment: REFERENCE INTERVAL: Allergen, Interpretation Less than 0.10 kU/L......Class 0.....No significant level detected 0.10-0.34 kU/L...........Class 0/1...Clinical relevance undetermined 0.35-0.70 kU/L...........Class 1.....Low 0.71-3.50 kU/L...........Class 2.....Moderate 3.51-17.50 kU/L..........Class 3.....High 17.51-50.00 kU/L.........Class 4.....Very High 50.01-100.00 kU/L........Class 5.....Very High Greater than 100.00kU/L..Class 6.....Very High Allergen results of 0.10-0.34 kU/L are intended for specialist use as the clinical relevance is undetermined. Even though increasing ranges are reflective of increasing concentrations of allergen-specific IgE, these concentrations may not correlate with the degree of clinical response or skin testing results when challenged with a specific allergen. The correlation of allergy laboratory results with clinical history and in vivo reactivity to specific allergens is essential. A negative test may not rule out clinical allergy or even anaphylaxis. Performed By: [place] [address] Bridge Game Director: Sivakumar Levi MD, PhD CLIA Number: [id number] Blood BLOOD SPECIMEN / Unknown Lab Venipuncture / Unknown 04/11/2024 4:52 PM CDT 04/11/2024 5:31 PM CDT Don Manuel MD LAB - CHEMISTRY CHRISTOPHER DE LA GARZA Performing Organization Address City/[facility]/ZIP Co de Phone Number [facility]) [address] [place] [address] * RHEUMATOID FACTOR BLOOD QUANTITATIVE (04/11/2024 4:52 PM CDT) [facility] Rheumatoid Factor <15 <30 IU/mL 04/11/2024 5:44 PM CDT [facility] Rheumatoid Factor Screen Negative Negative 04/11/2024 5:44 PM CDT [facility] Blood BLOOD SPECIMEN / Unknown Lab Venipuncture / Unknown 04/11/2024 4:52 PM CDT 04/11/2024 5:32 PM CDT Don Manuel MD LAB - CHEMISTRY CHRISTOPHER DE LA GARZA [address] [address], [facility] [phone] * AURY BLOOD SCREEN W/REFLEX TITER (04/11/2024 4:52 PM CDT) [facility] AURY IgG None Detected None Detected 04/13/2024 3:43 PM CDT [facility]) Comment: If suspicion of connective tissue disease is strong and AURY EIA is negative, consider testing for AURY by IFA ([id number]). INTERPRETIVE INFORMATION: Anti-Nuclear Antibodies (AURY), IgG by SINCERE Antinuclear Antibodies (AURY), IgG by SINCERE: AURY specimens are screened using enzyme-linked immunosorbent assay (SINCERE) methodology. All SINCERE results reported as Detected are further tested by indirect fluorescent assay (IFA) using HEp-2 substrate with an IgG-specific conjugate. The AURY SINCERE screen is designed to detect antibodies against dsDNA, histones, SS-A (Ro), SS-B (La), Mike, Mike/BARREL FILLER HEAD, Scl-70, Susanne-1, centromeric proteins, other antigens extracted from the HEp-2 cell nucleus. AURY SINCERE assays have been reported to have lower sensitivities than AURY IFA for systemic autoimmune rheumatic diseases (SARD). Negative results do not necessarily rule out SARD. Performed By: [facility] [address] [place] [address] Bridge Game Director: Sivakumar Levi MD, PhD CLIA Number: [id number] Blood BLOOD SPECIMEN / Unknown Lab Venipuncture / Unknown 04/11/2024 4:52 PM CDT 04/11/2024 5:32 PM CDT Don Manuel MD LAB - CHEMISTRY CHRISTOPHER DE LA GARZA [facility] Organization Address City/State/ZIP Co de Phone Number [facility]) [address] [place] [address], [facility] * SS-B (SJOGREN'S) ANTIBODY (04/11/2024 4:52 PM CDT) SS-B Antibody 0 0 - 40 AU/mL 04/13/2024 9:51 PM CDT [facility] ([facility]) Comment: INTERPRETIVE INFORMATION: SSB (La) (SONU) Ab, IgG ??29 AU/mL or Less ............. Negative ??30 - 40 AU/mL ................ Equivocal ??41 AU/mL or Greater .......... Positive SSB (La) antibody is seen in 50-60% of Sjogren syndrome cases and is specific if it is the only SONU antibody present. 15-25% of patients with systemic lupus erythematosus (SLE) and 5-10% of patients with progressive systemic sclerosis (PSS) also have this antibody. Performed By: Formerly [facility] [address] [place] [address] Bridge Game Director: Sivakumar Levi MD, PhD CLIA Number: [id number] Blood BLOOD SPECIMEN / Unknown Lab Venipuncture / Unknown 04/11/2024 4:52 PM CDT 04/11/2024 5:31 PM CDT Don Manuel MD LAB - CHEMISTRY CHRISTOPHER DE LA GARZA [facility] ([facility]) [address] [place] [address], [facility] * CBC W/ DIFFERENTIAL (04/11/2024 4:52 PM CDT) Only the most recent of158 resultswithin the time period is included. WBC 8.6 4.0 - 10.7 x10E9/L 04/11/2024 5:45 PM [facility] RBC Count 4.62 3.90 - 5.20 x10E12/L 04/11/2024 5:45 PM [facility] Hemoglobin 15.1 11.9 - 15.8 g/dL 04/11/2024 5:45 PM [facility] Hematocrit 43.2 34.8 - 46.1 % 04/11/2024 5:45 PM [facility] MCV 93.5 80.0 - 98.0 fL 04/11/2024 5:45 PM [facility] MCH 32.7 26.7 - 33.6 pg 04/11/2024 5:45 PM [facility] MCHC 35.0 31.7 - 36.3 g/dL 04/11/2024 5:45 PM [facility] RDW-CV 12.9 11.3 - 14.8 % 04/11/2024 5:45 PM [facility] Platelet Count 214 150 - 420 x10E9/L 04/11/2024 5:45 PM [facility] MPV 8.8 7.8 - 11.4 fL 04/11/2024 5:45 PM [facility] Neutrophil % 58.4 41.0 - 74.0 % 04/11/2024 5:45 PM [facility] Lymphocyte % 30.4 17.0 - 47.0 % 04/11/2024 5:45 PM T [facility] Monocyte % 6.3 3.0 - 11.0 % 04/11/2024 5:45 PM CDT [facility] Eosinophil % 4.1 0.0 - 7.0 % 04/11/2024 5:45 PM T [facility] Basophil % 0.6 0.0 - 1.6 % 04/11/2024 5:45 PM CDT [facility] Immature Granulocytes % 0.2 0.0 - 1.0 % 04/11/2024 5:45 PM T [facility] Neutrophil Absolute 5.00 1.60 - 7.50 x10E9/L 04/11/2024 5:45 PM T [facility] Lymphocyte Absolute 2.60 1.00 - 4.40 x10E9/L 04/11/2024 5:45 PM T [facility] Monocyte Absolute 0.54 0.15 - 1.00 x10E9/L 04/11/2024 5:45 PM CDT [facility] Eosinophil Absolute 0.35 0.00 - 0.60 x10E9/L 04/11/2024 5:45 PM CDT [facility] Basophil Absolute 0.05 0.00 - 0.13 x10E9/L 04/11/2024 5:45 PM [facility] Blood BLOOD SPECIMEN / Unknown Lab Venipuncture / Unknown 04/11/2024 4:52 PM CDT 04/11/2024 5:28 PM CDT Don Manuel MD LAB - HEMATOLOGY ORD ERABLES [facility] [address] [place] [id number], [facility] [phone] * NV DESTRUCT BENIGN LESION, 1-14 (03/02/2023 3:25 PM CDT) Narrative Jaun Mascorro MD - 03/02/2023 3:25 PM CDYoan George MD ? 03/02/2023 ??3:25 PM Diagnosis and treatment options discussed. Cryotherapy (Liquid Nitrogen) to 1 lesion for 7 seconds each. Number of cycles: 1. Wound care reviewed. Jaun Mascorro MD PROCEDURE/MINOR SURG ICAL ORDERABLES * NV DESTROY PREMALIG LESION, 1ST LESION (03/02/2023 3:25 PM CDT) Narrative Jaun Mascoror MD - 03/02/2023 3:25 PM CDT Yoan Mendez MD ? 03/02/2023 ??3:25 PM Diagnosis and treatment options discussed. Cryotherapy (Liquid Nitrogen) to 1 lesion for 4-6 seconds. Number of cycles: 1. Wound care reviewed. Jaun Mascorro MD PROCEDURE/MINOR SURG ICAL ORDERABLES * XR HAND LEFT 3VW OR MORE (10/07/2022 9:10 AM SENIOR CLIENT ADVISOR) Anatomical Region Laterality Modality Wrist / Hand Radiographic Jonna ging 10/07/2022 9:56 AM SENIOR CLIENT ADVISOR Impressions 10/07/2022 9:59 AM SENIOR CLIENT ADVISOR IMPRESSION: Minimal degenerative changes. > Interpreting Provider: Emil Chung MD on 10/07/2022 9:59 AM Narrative 10/07/2022 9:59 AM SENIOR CLIENT ADVISOR PROCEDURE: ??XR HAND LEFT 3VW OR MORE, XR HAND RIGHT 3VW OR MORE, DATE/TIME OF EXAM: ??10/07/2022 9:10 AM, LOCATION ??[facility] INDICATION: M79.641: Bilateral hand pain M79.642: Bilateral hand pain ADDITIONAL CLINICAL INFORMATION: Ordering Provider Reason For Exam: ??[facility] PAIN Technologist Note: Additional: COMPARISON: None. FINDINGS: Right hand: No fracture or dislocation is present. The joint spaces are normal. A small osteophyte is seen at the first carpometacarpal joint. No erosions are seen. ??Bone density is normal. ??The soft tissues are normal. Left hand: No fracture or dislocation is present. The joint spaces are normal. A small osteophyte is seen at the first carpometacarpal joint.. Another is seen at the third finger distal interphalangeal joint. No erosions are seen. ??Bone density is normal. ??The soft tissues are normal. Procedure Note Emil Chung MD - 10/07/2022 PROCEDURE: XR HAND LEFT 3VW OR MORE, XR HAND RIGHT 3VW OR MORE,DATE/TIME OF EXAM: 10/07/2022 9:10 AM, LOCATION [facility] INDICATION: M79.641: Bilateral hand pain M79.642: Bilateral hand pain ADDITIONAL CLINICAL INFORMATION: Ordering Provider Reason For Exam: [facility] PAIN Technologist Note: Additional: COMPARISON: None. FINDINGS: Right hand: No fracture or dislocation is present. The joint spaces are normal. Asmall osteophyte is seen at the first carpometacarpal joint. No erosions are seen. Bone density is normal. The soft tissues are normal. Left hand: No fracture or dislocation is present. The joint spaces are normal. Asmall osteophyte is seen at the first carpometacarpal joint.. Another is seenat the third finger distal interphalangeal joint. No erosions are seen.Bone density is normal. The soft tissues are normal. IMPRESSION: Minimal degenerative changes. > Interpreting Provider: Emil Chung MD on 10/07/2022 9:59 AM Jennifer Dia PA-C DIAGNOSTIC IMAGING ORDERABLES * XR HAND RIGHT 3VW OR MORE (10/07/2022 9:09 AM SENIOR CLIENT ADVISOR) Anatomical Region Laterality Modality Wrist / Hand Radiographic Jonna ging 10/07/2022 9:56 AM SENIOR CLIENT ADVISOR Impressions 10/07/2022 9:59 AM SENIOR CLIENT ADVISOR IMPRESSION: Minimal degenerative changes. > Interpreting Provider: Emil Chung MD on 10/07/2022 9:59 AM Narrative 10/07/2022 9:59 AM SENIOR CLIENT ADVISOR PROCEDURE: ??XR HAND LEFT 3VW OR MORE, XR HAND RIGHT 3VW OR MORE, DATE/TIME OF EXAM: ??10/07/2022 9:10 AM, LOCATION ??[facility] INDICATION: M79.641: Bilateral hand pain M79.642: Bilateral hand pain ADDITIONAL CLINICAL INFORMATION: Ordering Provider Reason For Exam: ??[facility] PAIN Technologist Note: Additional: COMPARISON: None. FINDINGS: Right hand: No fracture or dislocation is present. The joint spaces are normal. A small osteophyte is seen at the first carpometacarpal joint. No erosions are seen. ??Bone density is normal. ??The soft tissues are normal. Left hand: No fracture or dislocation is present. The joint spaces are normal. A small osteophyte is seen at the first carpometacarpal joint.. Another is seen at the third finger distal interphalangeal joint. No erosions are seen. ??Bone density is normal. ??The soft tissues are normal. Procedure Note Emil Chung MD - 10/07/2022 PROCEDURE: XR HAND LEFT 3VW OR MORE, XR HAND RIGHT 3VW OR MORE,DATE/TIME OF EXAM: 10/07/2022 9:10 AM, LOCATION [facility] INDICATION: M79.641: Bilateral hand pain M79.642: Bilateral hand pain ADDITIONAL CLINICAL INFORMATION: Ordering Provider Reason For Exam: [facility] PAIN Technologist Note: Additional: COMPARISON: None. FINDINGS: Right hand: No fracture or dislocation is present. The joint spaces are normal. Asmall osteophyte is seen at the first carpometacarpal joint. No erosions are seen. Bone density is normal. The soft tissues are normal. Left hand: No fracture or dislocation is present. The joint spaces are normal. Asmall osteophyte is seen at the first carpometacarpal joint.. Another is seenat the third finger distal interphalangeal joint. No erosions are seen.Bone density is normal. The soft tissues are normal. IMPRESSION: Minimal degenerative changes. > Interpreting Provider: Emil Chung MD on 10/07/2022 9:59 AM Jennifer DUVALL-Luz Maria DIAGNOSTIC IMAGING ORDERABLES * NV TANGNTL BX SKIN SINGLE LES (10/02/2022 1:47 PM SENIOR CLIENT ADVISOR) Narrative Jaun Mascorro MD - 10/02/2022 1:47 PM SENIOR CLIENT ADVISOR Héctor Swenson MD ? 10/02/2022 ??1:48 PM Risks, benefits and alternatives to shave biopsy were discussed with the patient. Verbal consent obtained. Location: L back Skin prep: Alcohol Anesthesia: ??Sensorcaine/bupivacaine with epinephrine Hemostasis: Aluminum Chloride Dressing and wound care discussed. Patient agrees to phone call for results and message if not available. Héctor Swenson MD U Dermatology Resident, PGY-2 Jaun Mascorro MD PROCEDURE/MINOR SURG ICAL ORDERABLES * NV DRAIN/INJECT LARGE JOINT/BURSA (08/05/2022 11:06 AM SENIOR CLIENT ADVISOR) Narrative Wai Lowry MD - 08/05/2022 11:06 AM SENIOR CLIENT ADVISOR Wai Lowry MD ? 08/05/2022 ??2:01 PM INJECTION PROCEDURE NOTE: The injection site was marked. A timeout was performed. Under sterile conditions, without complications, tolerated well by the patient, 4 cc ropivacaine and 80 mg (2 cc) triamcinolone were injected into the right greater trochanteric bursa. Wai Lowry MD PROCEDURE/MINOR SURG ICAL ORDERABLES * NV ENDO NASAL SINUS BX POLYP DEBRID BRENDAN (07/08/2022 9:40 AM SENIOR CLIENT ADVISOR) Narrative Sharan Mike MD - 07/08/2022 9:40 AM SENIOR CLIENT ADVISOR Sharan Mike MD ? 07/08/2022 10:11 AM [...] Shant Solomon MD PROCEDURE/MINOR SURG ICAL ORDERABLES * CT NECK SOFT TISSUE W CONT (06/18/2022 3:13 PM SENIOR CLIENT ADVISOR) Only the most recent of3 resultswithin the time period is included. Anatomical Region Laterality Modality Head Computed Tomogra phy 06/18/2022 3:25 PM SENIOR CLIENT ADVISOR Impressions 06/19/2022 1:26 PM SENIOR CLIENT ADVISOR IMPRESSION: ?? 1.Stable appearance of the 2 separate hyperdense/enhancing lesions in the superficial lobe of left parotid gland. 2.No significant cervical lymphadenopathy. > Dictated by Lisandro Burris M.D. (transporter radiology) I, Alberto Akers MD have personally reviewed and interpreted this examination/study. > Interpreting Provider: Alberto Akers MD on 06/19/2022 1:26 PM Narrative 06/19/2022 1:26 PM SENIOR CLIENT ADVISOR PROCEDURE: ??CT NECK SOFT TISSUE W CONT, DATE/TIME OF EXAM: ??06/18/2022 3:13 PM, LOCATION ??[facility] INDICATION: C81.90: Hodgkin lymphoma, unspecified Hodgkin [...] SPACE: Normal. PHARYNX/LARYNX/TRACHEA: Normal. RETROPHARYNGEAL SPACE: Normal. TELEGRAPH PRINTER MECHANIC SPACE: Normal. CAROTID SPACE: Retropharyngeal course of [...] SOFT TISSUES: No significant abnormality. Procedure Note Alberto Akers MD - 06/19/2022 PROCEDURE: CT NECK SOFT TISSUE W CONT, DATE/TIME OF EXAM: :13 PM, LOCATION [facility] INDICATION: C81.90: Hodgkin lymphoma, unspecified Hodgkin [...] SPACE: Normal. PHARYNX/LARYNX/TRACHEA: Normal. RETROPHARYNGEAL SPACE: Normal. TELEGRAPH PRINTER MECHANIC SPACE: Normal. CAROTID SPACE: Retropharyngeal course of [...] lymphadenopathy. > Dictated by Lisandro Burris M.D. (transporter radiology) I, Alberto Akers MD have personally reviewed and interpreted this examination/study. > Interpreting Provider: Alberto Akers MD on 06/19/2022 1:26 PM Ashish Peralta MD CT ORDERABLES * (ABNORMAL) COMPREHENSIVE METABOLIC PANEL (06/09/2022 3:46 PM SENIOR CLIENT ADVISOR) Only the most recent of88 resultswithin the time period is included. BUN 12 7 - 26 mg/dL 06/09/2022 4:29 PM [facility] Creatinine 0.66 0.56 - 0.96 mg/dL 06/09/2022 4:29 PM [facility] Sodium 140 136 - 145 mmol/L 06/09/2022 4:29 PM [facility] Potassium 3.7 3.5 - 4.5 mmol/L 06/09/2022 4:29 PM [facility] Chloride 111(H) 98 - 107 mmol/L 06/09/2022 4:29 PM [facility] CO2 21(L) 22 - 29 mmol/L 06/09/2022 4:29 PM [facility] Glucose 115 70 - 115 mg/dL 06/09/2022 4:29 PM [facility] Calcium 9.9 8.4 - 10.2 mg/dL 06/09/2022 4:29 PM [facility] Protein Total 7.7 6.0 - 8.3 g/dL 06/09/2022 4:29 PM [facility] Albumin 4.0 3.4 - 5.0 g/dL 06/09/2022 4:29 PM [facility] Bilirubin Total 0.7 0.2 - 1.2 mg/dL 06/09/2022 4:29 PM [facility] Alkaline Phosphatase 116 40 - 150 U/L 06/09/2022 4:29 PM [facility] ALT 16 5 - 55 U/L 06/09/2022 4:29 PM [facility] AST 16 5 - 34 U/L 06/09/2022 4:29 PM [facility] Anion Gap 12 8 - 18 06/09/2022 4:29 PM [facility] BUN/Creatinine Ratio 18 7 - 23 06/09/2022 4:29 PM SENIOR CLIENT ADVISOR [facility] Osmolality Calculated 291 270 - 300 mOsm/kg 06/09/2022 4:29 PM [facility] Albumin/Globulin Ratio 1.1 1.1 - 2.3 06/09/2022 4:29 PM [facility] eGFR by CKD-EPI >90 >=90 mL/min/1.7 3 m2 06/09/2022 4:29 PM [facility] Blood BLOOD SPECIMEN / Unknown Lab Venipuncture / Unknown 06/09/2022 3:46 PM SENIOR CLIENT ADVISOR 06/09/2022 4:02 PM SENIOR CLIENT ADVISOR Ashish Peralta MD LAB - CHEMISTRY CHRISTOPHER DE LA GARZA Performing Organization Address [facility]/ZIP Co de Phone Number [address] [address], [facility] [phone] * NV DRAIN/INJECT LARGE JOINT/BURSA (08/14/2021 2:09 PM SENIOR CLIENT ADVISOR) Narrative Wai Lowry MD - 08/14/2021 2:09 PM SENIOR CLIENT ADVISOR Wai Lowry MD ? 08/14/2021 ??2:09 PM INJECTION PROCEDURE NOTE: The injection site was marked. A timeout was performed. Under sterile conditions, without complications, tolerated well by the patient, 4 cc ropivacaine and 80 mg (2 cc) triamcinolone were injected into the right greater trochanteric bursa. Wai Lowry MD PROCEDURE/MINOR SURG ICAL ORDERABLES * TRANSFERRIN (08/13/2021 3:48 PM SENIOR CLIENT ADVISOR) Transferrin 314 174 - 382 mg/dL 08/13/2021 4:39 PM SENIOR CLIENT ADVISOR [facility] Blood BLOOD SPECIMEN / Unknown Lab Venipuncture / Unknown 08/13/2021 3:48 PM SENIOR CLIENT ADVISOR 08/13/2021 4:16 PM SENIOR CLIENT ADVISOR Lowell Pop MD LAB - CHEMISTRY ORD VICENTA Performing Organization Address City/[facility]/ZIP Co de Phone Number [address] [address], [facility] [phone] * IRON BLOOD (08/13/2021 3:48 PM SENIOR CLIENT ADVISOR) [facility] Iron 127 40 - 150 ug/dL 08/13/2021 4:39 PM SENIOR CLIENT ADVISOR [facility] Blood BLOOD SPECIMEN / Unknown Lab Venipuncture / Unknown 08/13/2021 3:48 PM SENIOR CLIENT ADVISOR 08/13/2021 4:16 PM SENIOR CLIENT ADVISOR Lowell Pop MD LAB - CHEMISTRY ORD ERABLES [facility] [address] [place] [address], [facility] [phone] * METHYLMALONIC ACID BLOOD (08/13/2021 3:47 PM SENIOR CLIENT ADVISOR) [facility] Methylmalonic Acid 0.15 0.00 - 0.40 umol/L 08/17/2021 1:08 PM SENIOR CLIENT ADVISOR [place] ([facility]) Comment: INTERPRETIVE INFORMATION: MMA Serum/Plasma, ?Vitamin B12 Status This test was developed and its performance characteristics determined by [facility]. It has not been cleared or approved by the US Food and Drug Administration. This test was performed in a CLIA certified laboratory and is intended for clinical purposes. Performed By: [facility] [address] [place] [address] Bridge Game Director: Karol Bowen MD Blood BLOOD SPECIMEN / Unknown Lab Venipuncture / Unknown 08/13/2021 3:47 PM SENIOR CLIENT ADVISOR 08/13/2021 4:16 PM SENIOR CLIENT ADVISOR Lowell Pop MD LAB - CHEMISTRY ORD ERABLES [facility]) [address] * VITAMIN D 25-HYDROXY (08/13/2021 3:47 PM SENIOR CLIENT ADVISOR) Only the most recent of2 resultswithin the time period is included. Vitamin D, 25 Hydroxy 31.0 30.0 - 80.0 ng/mL 08/13/2021 5:03 PM SENIOR CLIENT ADVISOR [facility] Comment: The recommendations for 25-Hydroxy Vitamin D clinical decision points are as follows: ? Deficient: ? <20.0 ng/mL ? Insufficient: ??20.0 - 29.9 ng/mL ? Sufficient: ? > or =30.0 ng/mL If the 25-Hydroxy Vitamin D results are inconsitent with clinical evidence, it is recommended that follow-up testing using a method such as LC/MS/MS be performed to confirm the result. Reference: ?The Endocrine Society Clinical Practice Guidelines. 2011 ? Blood BLOOD SPECIMEN / Unknown Lab Venipuncture / Unknown 08/13/2021 3:47 PM SENIOR CLIENT ADVISOR 08/13/2021 4:14 PM SENIOR CLIENT ADVISOR Lowell Pop MD LAB - CHEMISTRY ORD ERABLES Performing Organization Address [facility] de Phone Number [address] [address], [facility] [phone] * (ABNORMAL) VITAMIN B12 (08/13/2021 3:47 PM SENIOR CLIENT ADVISOR) Vitamin B12 989(H) 213 - 816 pg/mL 08/13/2021 5:03 PM SENIOR CLIENT ADVISOR [facility] Blood BLOOD SPECIMEN / Unknown Lab Venipuncture / Unknown 08/13/2021 3:47 PM SENIOR CLIENT ADVISOR 08/13/2021 4:14 PM SENIOR CLIENT ADVISOR Lowell Pop MD LAB - CHEMISTRY ORD ERABLES Performing Organization Address [facility] Co de Phone Number [address] [place] [address], [facility] [phone] * FERRITIN (08/13/2021 3:47 PM SENIOR CLIENT ADVISOR) Ferritin 39 13 - 204 ng/mL 08/13/2021 4:57 PM SENIOR CLIENT ADVISOR [facility] Blood BLOOD SPECIMEN / Unknown Lab Venipuncture / Unknown 08/13/2021 3:47 PM SENIOR CLIENT ADVISOR 08/13/2021 4:16 PM SENIOR CLIENT ADVISOR Lowell Pop MD LAB - CHEMISTRY ORD ERABLES [place] [address] [place] [address], [facility] [phone] * XR HIP RIGHT 2VW OR MORE (08/13/2021 2:48 PM SENIOR CLIENT ADVISOR) Anatomical Region Laterality Modality Pelvis, Lower Extremity Radiogra phic Imaging 08/13/2021 2:48 PM SENIOR CLIENT ADVISOR Impressions 08/13/2021 2:50 PM SENIOR CLIENT ADVISOR IMPRESSION: No acute findings. This report was electronically signed by HEMAL GOODE ??on 08/13/2021 2:50 PM . Narrative 08/13/2021 2:50 PM SENIOR CLIENT ADVISOR EXAMINATION: XR PELVIS 1 OR 2VW, XR HIP RIGHT 2VW OR MORE HISTORY: R52: Pain COMPARISON: None FINDINGS: Pelvis: An intrauterine device projects over the midline pelvis. The bony pelvic ring is intact. The sacroiliac joints and pubic symphysis appear preserved. No fracture or suspicious bony lesion. Right hip: There is no fracture or focal lesion. There is no evidence of erosive or bony hypertrophic change. Hip joint is normally aligned. Procedure Note Hemal Goode MD - 08/13/2021 EXAMINATION: XR PELVIS 1 OR 2VW, XR HIP RIGHT 2VW OR MORE HISTORY: R52: Pain COMPARISON: None FINDINGS: Pelvis: An intrauterine device projects over the midline pelvis. Thebony pelvic ring is intact. The sacroiliac joints and pubic symphysis appear preserved. No fracture or suspicious bony lesion. Right hip: There is no fracture or focal lesion. There is no evidence of erosive or bony hypertrophic change. Hip joint is normally aligned. IMPRESSION: No acute findings. This report was electronically signed by HEMAL GOODE on 08/13/2021 2:50 PM . Wai Lowry MD DIAGNOSTIC IMAGING O RDERABLES * XR PELVIS 1 OR 2VW (08/13/2021 2:48 PM SENIOR CLIENT ADVISOR) Anatomical Region Laterality Modality Pelvis Radiographic Jonna ging 08/13/2021 2:48 PM SENIOR CLIENT ADVISOR Impressions 08/13/2021 2:50 PM SENIOR CLIENT ADVISOR IMPRESSION: No acute findings. This report was electronically signed by HEMAL GOODE ??on 08/13/2021 2:50 PM . Narrative 08/13/2021 2:50 PM SENIOR CLIENT ADVISOR EXAMINATION: XR PELVIS 1 OR 2VW, XR HIP RIGHT 2VW OR MORE HISTORY: R52: Pain COMPARISON: None FINDINGS: Pelvis: An intrauterine device projects over the midline pelvis. The bony pelvic ring is intact. The sacroiliac joints and pubic symphysis appear preserved. No fracture or suspicious bony lesion. Right hip: There is no fracture or focal lesion. There is no evidence of erosive or bony hypertrophic change. Hip joint is normally aligned. Procedure Note Hemal Goode MD - 08/13/2021 EXAMINATION: XR PELVIS 1 OR 2VW, XR HIP RIGHT 2VW OR MORE HISTORY: R52: Pain COMPARISON: None FINDINGS: Pelvis: An intrauterine device projects over the midline pelvis. Thebony pelvic ring is intact. The sacroiliac joints and pubic symphysis appear preserved. No fracture or suspicious bony lesion. Right hip: There is no fracture or focal lesion. There is no evidence of erosive or bony hypertrophic change. Hip joint is normally aligned. IMPRESSION: No acute findings. This report was electronically signed by HEMAL GOODE on 08/13/2021 2:50 PM . Wai Lowry MD DIAGNOSTIC IMAGING O RDERABLES * NV POLYSOM 6/>YRS CPAP 4/> PARM (08/06/2021 10:18 AM SENIOR CLIENT ADVISOR) Narrative Lowell Pop MD - 08/06/2021 10:18 AM Lowell Alvares MD ? 08/06/2021 10:19 AM [facility] Accredited by the [place] [employer] [facility], First Floor [address] [place] [address] Telephone : [phone] ? Medical Records Patient Name: Lakeisha lAejandra : 1970 Date of Study: 08/05/2021 Referring Physician: Blake Lindsey MD Type of Montage: Respiratory Scoring Montage: ??[facility] FULL NIGHT THERAPEUTIC POLYSOMNOGRAM INTERPRETATION Procedure: The polysomnogram was performed with a computer engineering technologist in attendance. ??Central, occipital, and temporal EEG, EOG, submentalis, EMG, airflow via positive airway pressure, thoracoabdominal motion, anterior tibialis EMG, snore sensor, and pulse oximetry were monitored. ??Sleep stages, periodic limb movements, and EEG arousals were scored in 30-second epochs according to the AASM Scoring Manual. ??Apnea-hypopnea index was calculated using the recommended definition of hypopnea for scoring events. ??Data acquisition, collection, and scoring have been validated and clinically correlated. Sleep History: Ms. Lakeisha Alejandra, a 50 year [id number] female, was referred to the [facility] by Blake Medeiros MD for the evaluation of sleep apnea. Current Outpatient Medications: ?albuterol (PROVENTIL;VENTOLIN) (2.5 MG/3ML) 0.083% nebulizer solution, INHALE 3 ML BY NEBULIZATION 3 TIMES DAILY Reasons: Disease Involving Spasms of the Bronchus (Patient not taking: Reported on 07/15/2021), Disp: 1 vial, Rfl: 0 ?atorvastatin (LIPITOR) 10 MG tablet, , Disp: , Rfl: ?baclofen (LIORESAL) 20 MG tablet, , Disp: , Rfl: ?buPROPion XL 24hr (WELLBUTRIN-XL) 150 MG tablet, , Disp: , Rfl: ?cetirizine (ZYRTEC) 10 MG tablet, Take 10 mg by mouth once daily, Disp: , Rfl: ?escitalopram (LEXAPRO) 20 MG tablet, TAKE 1 TABLET BY MOUTH EVERY DAY IN THE MORNING, Disp: , Rfl: ?fluticasone propionate (FLONASE) 50 MCG/ACT nasal spray, [place] 2 sprays into each nostril once daily, Disp: 16 g, Rfl: 5 ?furosemide (LASIX) 20 MG tablet, Take 1 tablet by mouth once daily Reasons: Edema, Disp: 30 tablet, Rfl: 0 ?gabapentin (NEURONTIN) 300 MG capsule, Take 300 mg by mouth 3 times daily, Disp: , Rfl: ?lubiprostone (AMITIZA) 24 MCG capsule, Take 24 mcg by mouth 2 times daily with morning and evening meal, Disp: , Rfl: ?meloxicam (MOBIC) 15 MG tablet, , Disp: , Rfl: ?montelukast (SINGULAIR) 10 MG tablet, Take 10 mg by mouth once daily, Disp: , Rfl: ?mupirocin (BACTROBAN) 2 % ointment, Apply to affected area 3 times daily To bilateral nares, Disp: 22 g, Rfl: 1 ?NYSTOP [id number] UNIT/GM powder, Apply 1 Dose to affected area 2 times daily , Disp: , Rfl: 1 ?omeprazole (PRILOSEC) 20 MG capsule, Take 20 mg by mouth once daily, Disp: , Rfl: ?ondansetron (ZOFRAN) 4 MG tablet, Take 4 mg by mouth as needed, Disp: , Rfl: ?potassium chloride ER (KLOR-CON) 20 MEQ tablet, Take 1 tablet by mouth once daily, Disp: , Rfl: 0 ?prazosin (MINIPRESS) 1 MG capsule, , Disp: , Rfl: ?QUEtiapine (SEROQUEL) 100 MG tablet, Take 1 tablet by mouth at bedtime Reasons: Major Depressive Disorder (Patient taking differently: Take 200 mg by mouth at bedtime ??Reasons: Major Depressive Disorder), Disp: 30 tablet, Rfl: 0 ?spironolactone (ALDACTONE) 25 MG tablet, Take 1 tablet by mouth once daily, Disp: , Rfl: 2 ?SUMAtriptan (IMITREX) 50 MG tablet, Take 1 tablet by mouth once as needed for Migraine Maximum daily dose: 200mg/24 hours Reasons: Migraine Headache, Disp: 30 tablet, Rfl: 0 ?traZODone (DESYREL) 50 MG tablet, Take 50 mg by mouth nightly as needed , Disp: , Rfl: ?TRELEGY ELLIPTA 100-62.5-25 MCG/INH, Inhale 1 puff by mouth every 6 hours as needed, Disp: , Rfl: ?XTAMPZA ER 9 MG capsule, Take 9 mg by mouth 2 times daily, Disp: , Rfl: THERAPEUTIC STUDY Sleep Architecture: During this therapeutic study, the patient slept for 361.5 minutes and had normal sleep efficiency of 85.8%. The patient's initial sleep latency was prolonged at 32 minutes. The initial REM latency was prolonged at 148 minutes. The sleep architecture was as follows: stage N1: 3.5%; stage N2: 80.5%; stage N3: 5.9%; stage REM: 10.1%. Respiratory Analysis, Oximetry Data, and Snoring Profile: Bilevel positive airway pressure auto Servoventilation (BiPAP autoSV) therapy was titrated from a minimum setting of EPAP of 4 cmH2O and pressure support (PS) range of 4-15 cmH2O to a maximum setting of EPAP range of 4-8 cmH2O and PS range of 6-10 cmH2O. ?? Oxygen side flow was titrated from a minimum rate of 0 to a maximum of 3 L/min via BiPAP AutoSV. ??BiPAP autoSV at the maximum setting of EPAP range of 4-8 cmH2O and PS range of 6-10 cmH2O plus O2 side flow at 3 L/min was associated with a normal AHI of 1 per hour, an increased RERAI of 17.6 per hour, a normal minimum oxygen saturation of 89% The minimum oxygen saturation was decreased at 82%. ??The overall time spent with oxygen saturation less than 90% was 107.5 min. ?? No snoring was detected on optimal BiPAP autoSV setting. Periodic Limb Movement Profile: The patient's periodic limb movement index was elevated at 87.5 per hour. Virtually none of the leg movements was associated with arousals. EEG Profile: The patient's total arousal index at maximal BiPAP autoSV setting of ??EPAP range of 4-8 cmH2O and PS range of 6-10 cmH2O plus O2 side flow at 3 L/min was elevated at 19.9 per hour. ??Virtually all of the arousals were due to respiratory events There was no evidence of epileptiform activity during sleep. Cardiac Profile: EKG showed normal sinus rhythm. ??No clinically significant arrhythmia was noted. Parasomnia Profile: No parasomnia was noted during this threapeutic study. IMPRESSION: BiPAP autoSV setting of ??EPAP range of 4-8 cmH2O and PS range of 6-10 cmH2O plus O2 side flow at 3 L/min was effective in ameliorating obstructive apneas, hypopneas, and hypoxemia but was associated with persistence of respiratory effort-related arousals. RECOMMENDATIONS: 1. ??Suggest further titration of BiPAP AutoSV beyond an IPAP of 18 cmH2O to ameliorate residual abnormal respiratory breathing events. 2. ??Evaluate for causes of sleep-related hypoxemia disorder (e.g., hypoventilation, ventilation-perfusion mismatch, deadspace, shunt, diffusion abnormality, etc.). Lowell Pop MD, [facility], [facility], [facility] Emergency Department, [facility] Professor of Internal Medicine Adjunct Manager Behavior of Neurology Division of Pulmonary, Critical Care, and Sleep Medicine [facility] This note was electronically signed on 08/06/2021. Reba A Dettenmeier APNP-STARTING GATE DRIVER PROCEDUR E/MINOR SURGICAL ORDERABLES * NV LARYNGOSCOPY,FLEX FIBER,DIAGNOSTIC (07/01/2021 5:16 PM SENIOR CLIENT ADVISOR) Narrative Sharan Mike MD - 07/01/2021 5:16 PM SENIOR CLIENT ADVISOR Sharan Mike MD ? 07/01/2021 ??7:16 PM Procedure Note Endoscopy Type: ??Laryngoscopy without stroboscopy Endoscope: Flexible 4mm Scope Anesthesia: Lidocaine 2% and Neosynephrine 1/2% (nasal) Procedure Details: The patient was sitting upright in a chair with the head in a slightly anterior sniffing position. The topical anesthesia was administered and then adequate time was allowed ??for an anesthetic effect. The endoscope was passed thru the bilateral nasal cavity with the tongue retracted anteriorly. The tip of the endoscope was positioned in the oropharynx which allowed a complete view of the base of tongue, vallecula, pyriform recesses, epiglottis, bilateral true and false vocal folds, the interarytenoid and post cricoid region, and the immediate subglottis. Findings: Nasal passageway patent. Septum deviated right with bilateral inferior turbinate hypertrophy. No purulence, polyps, masses. Tonsils erythematous and hypertrophied when viewed from above. Vocal cords mobile bilaterally and symmetric. Condition: Stable. ??Patient tolerated procedure well. Complications: None The attending was present for and participated in critical portions of the entirety of the procedure. Jah Ochoa MD PROCEDURE/MINOR SURG ICAL ORDERABLES * CULTURE STREP GROUP A (07/01/2021 4:38 PM SENIOR CLIENT ADVISOR) Culture Negative for beta-hemolytic Streptococcus Group A NEVIN 07/03/2021 9:52 AM SENIOR CLIENT ADVISOR [facility] MICROBIOLOGY Microbiology ENTIRE THROAT (SURFACE REGION OF NECK) / Unknown Collection / Unknown 07/01/2021 4:38 PM SENIOR CLIENT ADVISOR 07/01/2021 5:04 PM SENIOR CLIENT ADVISOR Jah Ochoa MD LAB - MICROBIOLOGY O RDERABLES [facility] MICROBIOLOGY [address] [place] [address], [facility] [phone] * AUDIOLOGY/TYMPANOMETRY ORDER (07/01/2021 2:21 PM SENIOR CLIENT ADVISOR) Narrative Leann Cross AuD - 07/01/2021 2:31 PM SENIOR CLIENT ADVISOR History: Lakeisha Alejandra arrived for a hearing evaluation. ??Patient reports issues with ear fullness. ??She said that when she talks it sounds like it's coming from inside her head. She is unsure of changes in hearing. Results: Puretone air conduction testing revealed normal hearing in both ears. No significant changes were noted when compared to her last hearing test. ?? Speech testing was not completed today due to time constraints. Patient did not realize she had appointment with audiology and was in the cafeteria. ??By the time she made it to the office she was 20 minutes late. Immittance measures revealed a Type A tympanogram in the right ear, indicating normal middle ear function. ??Results for the left ear revealed a Type A tympanogram, indicating normal middle ear function in that ear. These results were discussed in detail with the patient and all pertinent questions were answered. Recommendations: 1) ENT consult. 2) Re check per medical recommendation or if a change in hearing is suspected. Andrea Galeano. [facility]-A Clinical Marketing Analytics Specialist [facility]ol[facility] [address] [place] [address] ([facility]) [place] [address] Leann Mendez AUDIOLOGY SERVICES O RDERABLES * BLOOD GASES ART+COOX POCT (05/28/2021 1:52 PM CDT) pH Arterial 7.43 7.35 - 7.45 pH 05/28/2021 1:52 PM [facility] pO2 Arterial 86 80 - 100 mmHg 05/28/2021 1:52 PM [facility] pCO2 Arterial 39 35 - 45 mmHg 1:52 PM [facility] BE Arterial 1.6 -2.0 - 2.0 mmol/L 05/28/2021 1:52 PM [facility] Oxyhemoglobin Arterial 95.3 % 05/28/2021 1:52 PM [facility] Dexoyhemoglobin (HHB) % 1.8 % 05/28/2021 1:52 PM [facility] O2 Content Arterial 19.5 Interpret within clinical context mg/dL 05/28/2021 1:52 PM [facility] Hemoglobin by COOX 14.5 12.0 - 15.6 g/dL 05/28/2021 1:52 PM [facility] O2 Saturation Arterial 98 90 - 100 % 05/28/2021 1:52 PM [facility] HCO3 Arterial 26 20 - 30 mmol/l 05/28/2021 1:52 PM [facility] Methemoglobin 1.2 0.0 - 2.0 % 05/28/2021 1:[address] [facility] Carboxyhemoglobin 1.7 0.0 - 2.0 % 2020 1:[address] [facility] Comment:Carboxyhemoglobin No rmal Concentration: Non-smokers: 0-2%; Smokers: 0- 9%; Toxic: >20% Blood, arterial ARTERIAL BLOOD SPECIMEN / Unknown 05/28/2021 1:52 PM CDT 05/28/2021 1:52 PM CDT Don Manuel MD LAB - POINT OF CARE ORDERABLES [facility] [address] [phone], [facility] [phone] * BLOOD GAS COOX ART POC NOTIFICATION (05/28/2021 1:35 PM CDT) Comment Notification Label Only - See Separate Report 05/28/2021 3:[address] [facility] PUL[facility]CTION LAB Other MISCELLANEOUS SAMPLES / Unknown Collection / Unknown 05/28/2021 1:35 PM CDT 05/28/2021 1:35 PM CDT Don Manuel MD LAB - BLOOD GASES OR DERABLES [facility] PULMONARY FUNCTION LAB * PFT OXYGEN DESATURATION STUDY (05/28/2021 1:16 PM CDT) Impressions Rosendo Martinez MD - 05/28/2021 1:16 PM CDT [facility] DEPARTMENT OF PULMONARY, CRITICAL CARE, AND SLEEP MEDICINE OXYGEN TITRATION STUDY Lakeisha Alejandra 05/29/2021 INTERPRETATION The test was performed on the treadmill at a speed of 2 mph at room air. ??The patient was able to complete 4 minutes with lowest SpO2 of 93%. Then the treadmill speed was increased to 3 mph, the patient's SpO2 dropped to 92% at minute 5 and oxygen saturation remained above 92 throughout the test. IMPRESSION 1. At the above level of activity the patient's oxygen saturation remained 92 % and above on room air. The patient did not have a significant oxygen desaturation while walking at 2 mph for a total of 8 minutes. Kris Halani, MD ( Fellow) Division of Pulmonary, Critical Care, & Sleep Medicine [facility] 05/29/2021 3:57 PM ?? I have reviewed the above study and agree with the interpretation as listed above. Rosendo Martinez MD Manager Behavior of Pulmonary & Critical Care Medicine [facility] Pager [phone] Narrative Rosendo Martinez MD - 05/28/2021 1:16 PM CDT Kris Trimble MD ? 05/29/2021 ??3:56 PM Joe Lomas MD PFT ORDERABLES * COMPLETE PFT W/WO BRONCHODILATOR (05/28/2021 1:16 PM CDT) Impressions Rosendo Martinez MD - 05/28/2021 1:16 PM CDT [facility] DEPARTMENT OF PULMONARY, CRITICAL CARE, AND SLEEP MEDICINE PULMONARY FUNCTION TESTS Lakeisha Loving Justyn 05/29/2021 INTERPRETATION Please see technologist's comments mentioned above. SPIROMETRY: FVC is normal. ?? FEV1 is normal. ?? FEV1/FVC ratio is normal. There is no significant response to bronchodilator therapy. This does not preclude the use of bronchodilator response if clinically indicated. The inspection of the patient's flow-volume loops shows normal configuration of the inspiratory and expiratory limbs. LUNG VOLUMES: Lung volumes by body plethysmography are within normal limits. DLCO: Diffusing capacity adjusted for Hb and COHb is within normal limits. ARTERIAL BLOOD GAS ANALYSIS: ABG drawn on revealed normal oxygenation and acid-base balance. IMPRESSION: 1. Normal Pulmonary Function Test. 2. Compared to study from 08/16/2017, FEV1 is increased by 260 ml and TLC is decreased by 400 ml. Kris Trimble MD ( Fellow) Division of Pulmonary, Critical Care, & Sleep Medicine [facility] 05/29/2021 , 3:55 PM I have reviewed the above study and agree with the interpretation as listed above. Rosendo Martinez MD Manager Behavior of Pulmonary & Critical Care Medicine [facility] Pager [phone] Narrative Rosendo Martinez MD - 05/28/2021 1:16 PM CDT Kris Trimble MD ? 05/29/2021 ??3:53 PM Don Manuel MD RESPIRATORY THERAPY ORDERABLES * CARDIAC EKG ORDER (03/31/2021 2:39 PM CDT) Narrative 03/31/2021 2:39 PM CDT Ordered by an unspecified provider. Scanned Document CARDIAC SERVICES ORD ERABLES * PFT OXYGEN DESATURATION STUDY (03/28/2021 2:53 PM CDT) Impressions Manjinder Costa MD - 03/28/2021 2:53 PM CDT [facility] DEPARTMENT OF PULMONARY, CRITICAL CARE, AND SLEEP MEDICINE OXYGEN TITRATION STUDY Lakeisha Alejandra 03/28/2021 INTERPRETATION The test was performed on the treadmill at a speed of 1.5 mph at room air. ??The patient was able to complete 4 minutes with lowest SpO2 of 87% at minute 3. The patient was then placed on 1 L O2 NC. Then the treadmill speed was increased to 2 mph, the patient's SpO2 dropped to 90% at minute 1. Oxygen saturation remained above 87% throughout the test. IMPRESSION 1. Patient was able to complete 3 minutes of exercise on room air, remaining above 87%. She was then placed on 1 L of O2 NC to complete the test. Elicia Lucero, Pulmonary/Critical Care Medicine, PGY-4 I have reviewed this study and agree with the interpretation by the Instructional Technology Director. Manjinder Costa M.D. Vehicle Technician of Internal Medicine Division of Pulmonary, Critical Care and Sleep Medicine [facility] [employer] Narrative Manjinder Costa MD - 03/28/2021 2:53 PM CDT Elicia Lucero I., DO ? 03/28/2021 ??6:06 PM Don Manuel MD PFT ORDERABLES * SIX MINUTE WALK (03/28/2021 2:52 PM CDT) Impressions Manjinder Costa MD - 03/28/2021 2:52 PM CDT [facility] DEPARTMENT OF PULMONARY, CRITICAL CARE, AND SLEEP MEDICINE SIX MINUTE WALK TEST Lakeisha Alejandra 03/28/2021 Interpretation: The patient walked for 6 minutes on 2 L O2 NC and covered total distance of 306 meters. On the Alec scale at baseline, reported dyspnea was 3 and fatigue was 4. ??At the end of the study, the Alec reported dyspnea was 3 and fatigue was 5. ??There were no additional symptoms reported and oxygen saturation remained above 94% throughout the test. IMPRESSION: 1. Total 6 minute walk distance is 306 meters, which is below the lower limit of normal of 375 meters for this patient. 2. Compared to prior study on 03/11/2015, the patients 6 minute walk distance has increased by 63 meters. Elicia Lucero DO Pulmonary & Critical Care Fellow, PGY-4 I have reviewed this study and agree with the interpretation by the Instructional Technology Director. Manjinder Costa M.D. Vehicle Technician of Internal Medicine Division of Pulmonary, Critical Care and Sleep Medicine [facility] Narrative Manjinder Costa MD - 03/28/2021 2:52 PM CDT Elicia Lucero I., DO ? 03/28/2021 ??6:06 PM Don Manuel MD RESPIRATORY THERAPY ORDERABLES * ECHO STRESS W DOBUTAMINE (03/28/2021 10:12 AM CDT) Anatomical Region Laterality Modality Chest Echo 03/28/2021 9:07 AM CDT Narrative Procedure Note Zack Gil MD - 03/28/2021 Don Manuel MD ECHOCARDIOGRAPHY RAD IANT * IMMUNOSCORE IGE INTERP (03/28/2021 7:29 AM CDT) Immunocap Score See Note 3:26 PM CDT [facility] ([facility]) Comment: REFERENCE INTERVAL: Allergen, Interpretation Less than 0.10 kU/L......Class 0.....No significant level detected 0.10-0.34 kU/L...........Class 0/1...Clinical relevance undetermined 0.35-0.70 kU/L...........Class 1.....Low 0.71-3.50 kU/L...........Class 2.....Moderate 3.51-17.50 kU/L..........Class 3.....High 17.51-50.00 kU/L.........Class 4.....Very High 50.01-100.00 kU/L........Class 5.....Very High Greater than 100.00kU/L..Class 6.....Very High Allergen results of 0.10-0.34 kU/L are intended for specialist use as the clinical relevance is undetermined. Even though increasing ranges are reflective of increasing concentrations of allergen-specific IgE, these concentrations may not correlate with the degree of clinical response or skin testing results when challenged with a specific allergen. The correlation of allergy laboratory results with clinical history and in vivo reactivity to specific allergens is essential. A negative test may not rule out clinical allergy or even anaphylaxis. Performed By: [facility] [address] [place] [address] Bridge Game Director: Karol Bowen MD Blood BLOOD SPECIMEN / Unknown Lab Venipuncture / Unknown 03/28/2021 7:29 AM CDT 03/28/2021 9:40 AM CDT Don Manuel MD LAB - SEROLOGY ORDER GITA O[facility]) [address] [place] [address], [facility] * ALLERGEN RESPIRATORY PROF ([place]) IGE (03/28/2021 7:29 AM CDT) [facility] IgE Total 4 <=214 kU/L 03/30/2021 3:18 PM CDT [facility] ([facility]) Comment: REFERENCE INTERVAL: Immunoglobulin E, Serum Access complete set of age- and/or gender-specific reference intervals for this test in the [employer] [facility] Test Directory (Context app). Allergen Meier Elder <0.10 <=0.34 kU/L 03/30/2021 3:18 PM CDT [facility] ([facility]) Allergen Alternaria alternata <0.10 <=0.34 kU/L 03/30/2021 3:18 PM CDT [facility] ([facility]) Allergen [place] Maple <0.10 <=0.34 kU/L 03/30/2021 3:18 PM CDT [facility] ([facility]) Allergen Cat Dander <0.10 <=0.34 kU/L 03/30/2021 3:18 PM CDT [facility] ([facility]) Allergen Mountain Busby <0.10 <=0.34 kU/L 03/30/2021 3:18 PM CDT [facility] ([facility]) Allergen Hopkins Tree <0.10 <=0.34 kU/L 03/30/2021 3:18 PM CDT [facility] ([facility]) Allergen Rough Pigweed <0.10 <=0.34 kU/L 03/30/2021 3:18 PM CDT [facility] ([facility]) Allergen Belizean Thistle <0.10 <=0.34 kU/L 03/30/2021 3:18 PM CDT [facility] ([facility]) Allergen Tono Grass <0.10 <=0.34 kU/L 03/30/2021 3:18 PM CDT [facility] ([facility]) Allergen Hormodendrum <0.10 <=0.34 kU/L 03/30/2021 3:18 PM CDT [facility] ([facility]) Allergen Elm <0.10 <=0.34 kU/L 03/30/2021 3:18 PM CDT [facility] ([facility]) Allergen [place] <0.10 <=0.34 kU/L 03/30/2021 3:18 PM CDT [facility] ([facility]) Allergen A fumigatus IgE <0.10 <=0.34 kU/L 03/30/2021 3:18 PM CDT [facility] ([facility]) Allergen Dermatophagoides pteronyssinus <0.10 <=0.34 kU/L 03/30/2021 3:18 PM CDT [facility] ([facility]) Allergen Dermatophagoides farinae <0.10 <=0.34 kU/L 03/30/2021 3:18 PM CDT [facility] ([facility]) Allergen Bermuda Grass <0.10 <=0.34 kU/L 03/30/2021 3:18 PM CDT [facility] ([facility]) Allergen White Grover <0.10 <=0.34 kU/L 03/30/2021 3:18 PM CDT [facility] ([facility]) Allergen P. Notatum <0.10 <=0.34 kU/L 03/30/2021 3:18 PM CDT [facility] ([facility]) Allergen Common Ragweed <0.10 <=0.34 kU/L 03/30/2021 3:18 PM CDT [facility] ([facility]) Allergen Cockroach Tuvaluan <0.10 <=0.34 kU/L 03/30/2021 3:18 PM CDT [facility] ([facility]) Allergen Toledo Tree <0.10 <=0.34 kU/L 03/30/2021 3:18 PM CDT [facility] ([facility]) Allergen Tay[place] Tree <0.10 <=0.34 kU/L 03/30/2021 3:18 PM CDT [facility] ([facility]) Allergen Pecan Tree <0.10 <=0.34 kU/L 03/30/2021 3:18 PM CDT [facility] ([facility]) Allergen Mouse Epithelium IgE <0.10 <=0.34 kU/L 03/30/2021 3:18 PM CDT [facility] ([facility]) Allergen Mucor racemosus <0.10 <=0.34 kU/L 03/30/2021 3:18 PM CDT [facility] ([facility]) Allergen White [place] Tree IgE <0.10 <=0.34 kU/L 03/30/2021 3:18 PM CDT [facility] ([facility]) Allergen Dog Dander <0.10 <=0.34 kU/L 03/30/2021 3:18 PM CDT [facility] ([facility]) Comment: Performed By: [facility] [address] [place] [id number] Bridge Game Director: Karol Bowen MD Blood BLOOD SPECIMEN / Unknown Lab Venipuncture / Unknown 03/28/2021 7:29 AM CDT 03/28/2021 9:40 AM CDT Don Manuel MD LAB - CHEMISTRY [facility] Organization Address City/State/ZIP Co de Phone Number [facility] ([facility]) [address] [phone], [facility] * CT ANGIO CHEST PULM EMBOLISM (03/28/2021 7:16 AM CDT) Only the most recent of2 resultswithin the time period is included. Anatomical Region Laterality Modality Chest Computed Tomogra phy 03/28/2021 8:13 AM CDT Impressions 03/28/2021 1:40 PM CDT Impression: 1.No pulmonary embolism is identified. 2.Diffuse bilateral periventricular reticulations with faint groundglass opacities are new from the prior chest CT of 08/03/2014, and increased from PET/CT from 02/13/2019, may represent fibrotic changes, likely posttreatment. Superimposed acute infectious process cannot be excluded. 3.A chronic pathologic T6 compression deformity is unchanged. 4.Cholelithiasis. Report drafted by Remy Gomez (resident) Dr. Hollis Muller M.D. have personally reviewed and interpreted this examination/study. This report was electronically signed by Hollis GALINDO M.D. ??on 03/28/2021 1:40 PM . Narrative 03/28/2021 1:40 PM CDT Procedure Information DATE: 03/28/2021 7:16 AM EXAMINATION: Computed tomography (CT) of the chest with contrast TECHNIQUE: CT of the chest was performed following the uneventful administration of 100 mL of Isovue 370 intravenous contrast according to a pulmonary embolism protocol. Multiplanar reconstructions were created. Clinical Information HISTORY: R07.9: Chest pain, unspecified type R09.02: Hypoxia R60.0: Lower extremity edema COMPARISON: CT chest from 08/03/2014, PET/CT on 02/13/2019; CT thoracic spine on 08/15/2020 Findings Study Quality This examination for the diagnosis of pulmonary embolism is: adequate. Lines/Tubes: None. Pulmonary Vessels: No evidence of pulmonary embolism is seen. Lower neck and axillae: Normal. Mediastinum and Radha: No enlarged lymph nodes are present. Heart and Pericardium: The cardiac chambers are normal in size. No pericardial fluid or thickening is present. Lung Parenchyma, Airways, and Pleural Spaces: Diffuse bilateral peripheral reticulations are seen with some septal thickening/scarring. Faint groundglass opacification is also scattered in both lungs. There is no pleural effusion or pneumothorax. Bones and Soft Tissue: Cervicothoracic posterior spinal fusion instrumentation is present. A chronic pathologic T6 compression deformity is unchanged from the prior thoracic spine CT. Upper Abdomen: Gallstones are seen. Procedure Note Denise Galindo MD - 03/28/2021 Procedure Information DATE: 03/28/2021 7:16 AM EXAMINATION: Computed tomography (CT) of the chest with contrast TECHNIQUE: CT of the chest was performed following the uneventful administration of 100 mL of Isovue 370 intravenous contrast according to a pulmonary embolism protocol. Multiplanar reconstructions were created. Clinical Information HISTORY: R07.9: Chest pain, unspecified type R09.02: Hypoxia R60.0: Lower extremity edema COMPARISON: CT chest from 08/03/2014, PET/CT on 02/13/2019; CT thoracicspine on 08/15/2020 Findings Study Quality This examination for the diagnosis of pulmonary embolism is: adequate. Lines/Tubes: None. Pulmonary Vessels: No evidence of pulmonary embolism is seen. Lower neck and axillae: Normal. Mediastinum and Radha: No enlarged lymph nodes are present. Heart and Pericardium: The cardiac chambers are normal in size. No pericardial fluid or thickening is present. Lung Parenchyma, Airways, and Pleural Spaces: Diffuse bilateral peripheral reticulations are seen with some septal thickening/scarring. Faint groundglass opacification is also scatteredin both lungs. There is no pleural effusion or pneumothorax. Bones and Soft Tissue: Cervicothoracic posterior spinal fusion instrumentation is present. A chronic pathologic T6 compression deformity is unchanged from theprior thoracic spine CT. Upper Abdomen: Gallstones are seen. Impression: 1.No pulmonary embolism is identified. 2.Diffuse bilateral periventricular reticulations with faint groundglass opacities are new from the prior chest CT of 08/03/2014, and increasedfrom PET/CT from 02/13/2019, may represent fibrotic changes, likely posttreatment. Superimposed acute infectious process cannot be excluded. 3.A chronic pathologic T6 compression deformity is unchanged. 4.Cholelithiasis. Report drafted by Remy Gomez (resident) I, Dr. Hollis GALINDO M.D. have personally reviewed and interpretedthis examination/study. This report was electronically signed by Hollis GALINDO M.D. on 03/28/2021 1:40 PM . Don Manuel MD CT ORDERABLES * CREATININE - POCT INTERFACED (03/28/2021 7:07 AM CDT) Only the most recent of2 resultswithin the time period is included. Creatinine POCT 0.75 0.30 - 1.30 mg/dL 03/28/2021 7:27 AM CDT [facility] eGFR >60 >60 mL/min/1.7 3 m2 03/28/2021 7:27 AM CDT [facility] Blood BLOOD SPECIMEN / Unknown 03/28/2021 7:07 AM CDT 03/28/2021 7:27 AM CDT Don Manuel MD LAB - POINT OF CARE ORDERABLES Performing Organization Address City/State/[facility] Co de Phone Number [facility] [address] [place] [phone], [facility] [phone] * IR US FINE NEEDLE ASPIRATION (11/04/2020 2:15 PM CDT) Anatomical Region Laterality Modality X-Ray Angiograph y 11/04/2020 4:31 PM CDT Impressions 11/04/2020 4:45 PM CDT Impression: 1. Ultrasound guided fine needle aspiration of left parotid nodule, as described above. The pathology report is pending at the time of this dictation. 2.Ultrasound-guided fine-needle aspiration of left level IIb cervical lymph node. I, Dr. Blaine Pang, was present and performed/supervised the entire procedure. This report was electronically signed by BLAINE COOPER ??on 11/04/2020 4:45 PM . Narrative 11/04/2020 4:45 PM CDT History: History of large consistent lymphoma, slowly enlarging left superficial intraparotid nodule/node and an enlarging left deep cervical level 2B lymph node are being targeted for FNAC. Operators: Dr. Blaine Pang, Attending Physician Anesthesia: Local anesthesia - 10 ml of 1% lidocaine Procedure: 1.Limited ultrasound of the neck 2.US-guided fine needle aspiration of left parotid nodule/node 3.US-guided fine needle aspiration of left deep cervical Level 2B node ?? . Procedure in detail: The procedure, risks, and possible complications were explained to the patient in detail, and informed consent was obtained. 11 mm nodule in the left inferior-parotid gland, corresponding to the indeterminate nodule on recent imaging, and associated with mild focal tenderness, was initially targeted. A total of 4 passes were made using 25-gauge needles. One of these passes was collected for culture and sensitivity, with the other 3 passes collected by the cytopathologist. The 1 cm left level IIb lymph node was then targeted. 3 passes were made using 25-gauge needles. These were processed for cytopathology. The patient tolerated the procedure well and was transferred to the holding area in stable condition. There were no immediate complications associated with the procedure. Procedure Note Blaine Pang MD - 11/04/2020 History: History of large consistent lymphoma, slowly enlarging left superficial intraparotid nodule/node and an enlarging left deep cervical level 2B lymph node are being targeted for FNAC. Operators: Dr. Blaine Pang, Attending Physician Anesthesia: Local anesthesia - 10 ml of 1% lidocaine Procedure: 1.Limited ultrasound of the neck 2.US-guided fine needle aspiration of left parotid nodule/node 3.US-guided fine needle aspiration of left deep cervical Level 2B node. Procedure in detail: The procedure, risks, and possible complications were explained to the patient in detail, and informed consent was obtained. 11 mm nodule inthe left inferior-parotid gland, corresponding to the indeterminate noduleon recent imaging, and associated with mild focal tenderness, was initially targeted. A total of 4 passes were made using 25-gauge needles. One of these passes was collected for culture and sensitivity, with the other 3 passes collected by the cytopathologist. The 1 cm left level IIb lymph node was then targeted. 3 passes were made using 25-gauge needles. These were processed for cytopathology. The patient tolerated the procedurewell and was transferred to the holding area in stable condition. There wereno immediate complications associated with the procedure. Impression: 1. Ultrasound guided fine needle aspiration of left parotid nodule, as described above. The pathology report is pending at the timeof this dictation. 2.Ultrasound-guided fine-needle aspiration of left level IIb cervical lymph node. I, Dr. Blaine Pang, was present and performed/supervised the entire procedure. This report was electronically signed by BLAINE COOPER on 11/04/2020 4:45 PM . Nia Augustin APRN-STARTING GATE DRIVER IR ORDERABLES * CULTURE ABSCESS+GRAM STAIN (11/04/2020 2:07 PM CDT) Culture No growth NEVIN 11/07/2020 6:25 AM CDT [facility] MICROBIOLOGY Gram Stain No organisms seen 021 6:25 AM CDT [facility] MICROBIOLOGY Gram Stain Rare Polymorphonuclear cells 11/07/2020 6:25 AM CDT [facility] MICROBIOLOGY Microbiology MASS OF PAROTID GLAND / Unknown Collection / Unknown 11/04/2020 2:07 PM CDT 11/04/2020 4:06 PM CDT Blaine Pang MD LAB - MICROBIOL OGY ORDERABLES [facility] MICROBIOLOGY [address] [place], [place] [address], [facility] [phone] * FINE NEEDLE ASPIRATION (STL) (11/04/2020 1:36 PM CDT) Case Report Medical Cytology Report ? Case: [id number] ? Authorizing Provider: ??Nia Augustin, [place] ?Collected: ? 11/04/2020 01:36 PM ? Ordering Location: ? [facility] ?Received: ?11/04/2020 03:09 PM ? Pathologist: ? Jaun Davison MD ? Specimens: ?? A) - Lymph Node, parotid left ? B) - Cervical Lymph Node , left deep cervical ? 11/05/2020 5:03 PM CDT [facility] Specimen Adequacy Adequate cellularity for evaluation. 11/05/2020 5:[address] Final Diagnosis Lymph node, left parotid, US-guided FNA: - Neoplasm: Benign (see comment). Lymph node, left level 2B 'deep left cervical', US-guided FNA: - Mixed hematopoietic elements with some atypical forms (see comment). 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 11/05/2020 5:03 PM CDT [facility] Gross Description A) 2 pap & 2 diff-quik stained slides and 1 cell block from 15cc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 [facility] (02/13/2019 10:32 AM CDT) Glucose WB/POC 117(A) 70 - 115 mg/dL [facility] POCT TESTING Blood BLOOD SPECIMEN / Unknown 02/13/2019 10:32 AM CDT Castillo Max MD LAB - POINT OF CAR E ORDERABLES [facility] POCT TESTING [address] [phone] * NV DRAIN/INJECT LARGE JOINT/BURSA (01/25/2019 4:31 PM CDT) Narrative Corrina Peralat PA-C - 01/25/2019 4:31 PM CDT Corrina Peralta PA-C ? 01/25/2019 ??4:31 PM Orthopaedic Surgery Procedure Note Diagnosis: Left knee pain Procedure: Injection of Corticosteroid into the Left knee. Indications: Lakeisha Alejandra is a 48 year old female who has Left knee pain and arthritis. Procedure Details: Ms. Alejandra was informed of her condition, and the potential benefits of injection of steroid. The patient was counseled as to the risks of the procedure. She was understanding and agreeable. The patient was placed into the supine position. The area was prepped with beta-dine. Utilizing the supralateral patellar portal, the skin, subcutaneous, and pericapsular tissues were injected with 3 cc 1% lidocaine without epinephrine using a 21 Ga needle. The patient's Left knee was then entered. Confirmation of location inside the joint was evidenced by aspiration of straw colored synovial fluid. 2 cc of Kenalog and 3 cc 1% lidocaine without epinephrine was injected into the joint. The needle was removed and the needle site dressed with a semi-sterile bandage. The patient tolerated the procedure well. Remainder of plan per note. Corrina Peralta PA-C 01/25/2019 12:36 PM Corrina Peralta PA-C PROCEDURE/MINOR SURGICAL ORDERABLES * XR KNEE LEFT 4VW OR MORE (01/25/2019 11:10 AM CDT) Only the most recent of2 resultswithin the time period is included. Anatomical Region Laterality Modality Lower Extremity Radiographic Jonna ging 01/25/2019 11:3 1 AM CDT Impressions 01/25/2019 11:33 AM CDT IMPRESSION: Minimal degenerative change. This report was electronically signed by EMIL CHUNG MD ??on 01/25/2019 11:33 AM . Narrative 01/25/2019 11:33 AM CDT Exam: ??XR KNEE LEFT 4VW History: ??left knee pain Comparison: 09/09/2016. Findings: No fracture or dislocation is present. The joint spaces are normal. There is minimal degenerative change without joint space narrowing. No effusion is seen. Procedure Note Emil Chung MD - 01/25/2019 Exam: XR KNEE LEFT 4VW History: left knee pain Comparison: 09/09/2016. Findings: No fracture or dislocation is present. The joint spaces are normal.There is minimal degenerative change without joint space narrowing. Noeffusion is seen. IMPRESSION: Minimal degenerative change. This report was electronically signed by EMIL CHUNG MD on01/25/2019 11:33 AM . Corrina Peralta PA-C DIAGNOSTIC IMAG ING ORDERABLES * PTT [facility] (01/19/2019 3:14 PM CDT) Only the most recent of16 resultswithin the time period is included. APTT 31.0 23.0 - 38.4 Seconds 01/19/2019 3:[address] [facility] Comment: * Please Note: New therapeutic range for heparin therapy. * Suggested therapeutic range for full dose I.V. heparin therapy for venous thromboembolism is 65 to 103 seconds. Blood BLOOD SPECIMEN / Unknown Lab Venipuncture / Unknown 01/19/2019 3:14 PM CDT 01/19/2019 3:22 PM CDT Castillo Max MD LAB - COAGULATION ORDERABLES Performing Organization Address [facility] Co de Phone Number [address] [phone] * PT-INR [facility] (01/19/2019 3:14 PM CDT) Only the most recent of61 resultswithin the time period is included. Pathologist [facility] PT 12.3 12.1 - 14.8 Seconds 01/19/2019 3:[address] [facility] INR 1.0 See Comment 01/19/2019 3:[address] [facility] Comment: The suggested therapeutic range for standard coumadin (warfarin) therapy is an INR of 2.0-3.0. For high-risk patients (Mechanical Mitral Valve Prosthesis, etc.), the suggested prophylactic therapeutic range is an INR of 2.5-3.5. Blood BLOOD SPECIMEN / Unknown Lab Venipuncture / Unknown 01/19/2019 3:14 PM CDT 01/19/2019 3:22 PM CDT Castillo Max MD LAB - COAGULATION ORDERABLES Performing Organization Address [facility] de Phone Number [address] [phone] * LH (01/19/2019 3:14 PM CDT) Pathologist [facility] LH 37.4 mIU/mL 01/21/2019 7:11 AM CDT [facility] ([facility]) Comment: ?Adult Female: ?Follicular phase ?2.4 - ??12.6 ?Ovulation phase ?14.0 - ??95.6 ?Luteal phase ?1.0 - ??11.4 ?Postmenopausal ?7.7 - ??58.5 Blood BLOOD SPECIMEN / Unknown Lab Venipuncture / Unknown 01/19/2019 3:14 PM CDT 01/19/2019 3:22 PM CDT Narrative [facility] ([facility]) - 01/21/2019 7:11 AM CDT Performed at: ??01 - [facility] [address] [facility], [place], [place] ??[id number] Marble Cleaner: Edison Chavez PhD, Phone: ??[phone] Castillo Max MD LAB - CHEMISTRY OR DERABLES Performing Organization Address City/State/[facility] Co de Phone Number [facility] ([facility]) [address] [place] [address] * FSH (01/19/2019 3:14 PM CDT) FSH 68.5 mIU/mL 01/21/2019 7:11 AM CDT [facility] ([facility]) Comment: ?Adult Female: ?Follicular phase ?3.5 - ??12.5 ?Ovulation phase ? 4.7 - ??21.5 ?Luteal phase ?1.7 - ?? 7.7 ?Postmenopausal ? 25.8 - 134.8 Blood BLOOD SPECIMEN / Unknown Lab Venipuncture / Unknown 01/19/2019 3:14 PM CDT 01/19/2019 3:22 PM CDT Narrative [facility] ([facility]) - 01/21/2019 7:11 AM CDT Performed at: ??01 - [facility] [address] [place], [place] ??[id number] Marble Cleaner: Edison Chavez PhD, Phone: ??[phone] Castillo Max MD LAB - CHEMISTRY OR DERABLES [facility] ([facility]) [address] [place] [address] * ESTRADIOL (01/19/2019 3:14 PM CDT) Estradiol 7.2 pg/mL 01/21/2019 4:08 AM CDT [facility] ([facility]) Comment: ?Adult Female: ?Follicular phase ?? 12.5 - ?? 166.0 ?Ovulation phase ?85.8 - ?? 498.0 ?Luteal phase ? 43.8 - ?? 211.0 ?Postmenopausal ? <6.0 - ?54.7 ?1st trimester ? 215.0 - >4300.0 ?Girls (1-10 years) ?6.0 - ?27.0 Luis ECLIA methodology Blood BLOOD SPECIMEN / Unknown Lab Venipuncture / Unknown 01/19/2019 3:14 PM CDT 01/19/2019 3:22 PM CDT Narrative [facility] ([facility]) - 01/21/2019 4:08 AM CDT Performed at: ??01 - [facility] [address] [place], [place] ??[id number] Marble Cleaner: Edison Chavez PhD, Phone: ??[phone] Castillo Max MD LAB - CHEMISTRY OR DERABLES [facility] ([facility]) [address] [place] [address] * (ABNORMAL) DRUG SCREEN TOX URINE PANEL (01/11/2019 3:03 PM CDT) Only the most recent of2 resultswithin the time period is included. Amphetamines Screen Urine Negative Negative : < 1000 ng/mL 01/11/2019 3:33 PM CDT [facility] Barbiturates Screen Urine Negative Negative : < 200 ng/mL 01/11/2019 3:33 PM T [facility] Benzodiazepine Screen Urine Negative Negative : < 200 ng/mL 01/11/2019 3:33 PM T [facility] Opiates Urine Negative Negative : < 300 ng/mL 01/11/2019 3:33 PM [facility] Cocaine Metabolites Urine Negative Negative : < 300 ng/mL 01/11/2019 3:33 PM T [facility] Phencyclidine Screen Urine Negative Negative : < 25 ng/ml 01/11/2019 3:33 PM [facility] Cannabinoids Screen Urine Positive(A) Negative : <50 ng/mL 01/11/2019 3:33 PM T [facility] Comment: Positive urine cannabinoids (THC) screening results should be confirmed by another generally accepted non-immunological method such as gas chromatography or mass spectrometry. ? Methadone Screen Urine Negative Negative : < 300 ng/mL 01/11/2019 3:33 PM [facility] Urine URINE / Unknown Collection / Unknown 01/11/2019 3:03 PM CDT 01/11/2019 3:10 PM CDT Narrative [facility] - 01/11/2019 3:33 PM CDT The Urine Toxicology Screening Panel does not screen for Propoxyphene, Meprobamate, Carisoprodol, Trazodone, owxj-uyo-gkrbizt medications and/or volatiles (Acetone, Isopropanol, Methanol or Ethylene Glycol). Ethanol, Salicylate, Acetaminophen, Tricyclic Antidepressants and several therapeutic drugs may be individually assayed in serum or plasma specimen. Toxicology testing by the [facility] is an aid to medical diagnosis and treatment of patients. No documented chain of custody was maintained. Results are intended to be used for clinical purposes only. ? Kain Wellington MD LAB - URINE CHEMISTR Y ORDERABLES Performing Organization Address City/State/[facility] Co de Phone Number [facility] [address] [place] [address], [facility] [phone] * HEMOGLOBIN A1C (01/11/2019 2:32 PM CDT) [facility] Hemoglobin A1c 6.1 4.4 - 6.3 % 01/12/2019 10:35 AM CDT [facility] Estimated Average Glucose 128 mg/dL 01/12/2019 10:35 AM T [facility] Comment: HbA1c Interpretation: Treatment target values recommended by ADA and other clinical organizations should be used to evaluate metabolic control in patients. Treatment Target Values: Normal : < 5.7% Pre-diabetes: 5.7-6.4% Diabetes: Equal to or greater than 6.5% Reference: [place] [employer] Standards of Care in Diabetes -2014 In patients 70 years and older consider HbA1c target range of 7.0-7.5% Reference: ??Diabetes Mellitus in Older People: Position Statement on behalf of the International Association of Gerontology and Geriatrics (IAGG), the Diabetes Working Libertarian for Older People (EDWPOP), and the International Task Force of Experts in Diabetes. ??Dwayne Richmond, et al. J [place] [employer] Association. 2012 Test results diagnostic of diabetes should be repeated for confirmation. The Sebia Capillary 2 assay for the measurement of HbA1c is a National Glycohemoglobin Standardization Program (NGSP)certified method. Blood BLOOD SPECIMEN / Unknown Venipuncture / Unknown 01/11/2019 2:32 PM CDT 01/11/2019 2:32 PM CDT Kain Wellington MD LAB - CHEMISTRY [facility] Performing Organization Address [facility] Co de Phone Number [address] [phone] * ALCOHOL ETHYL BLOOD (01/11/2019 2:32 PM CDT) Only the most recent of2 resultswithin the time period is included. Interpretation Ethanol None Detected None Detected mg/dL 01/11/2019 3:15 PM CDT [facility] Comment: Ethanol levels less than 10 mg/dL are resulted as None detected . Blood BLOOD SPECIMEN / Unknown Venipuncture / Unknown 01/11/2019 2:32 PM CDT 01/11/2019 2:32 PM CDT Kain Wellington MD LAB - CHEMISTRY [facility] Performing Organization Address [facility] Co de Phone Number [address] [phone] * TSH (01/11/2019 2:32 PM CDT) Only the most recent of3 resultswithin the time period is included. TSH 0.943 0.350 - 4.940 uIU/mL 01/11/2019 3:35 PM CDT [facility] Blood BLOOD SPECIMEN / Unknown Venipuncture / Unknown 01/11/2019 2:32 PM CDT 01/11/2019 2:32 PM CDT Kain Wellington MD LAB - CHEMISTRY [facility] Performing Organization Address [facility]/ZIP Co de Phone Number [address] [phone] * (ABNORMAL) SALICYLATE LEVEL BLOOD (01/11/2019 2:32 PM CDT) Salicylate <5(L) 15 - 30 mg/dL 01/11/2019 3:14 PM CDT [facility] Blood BLOOD SPECIMEN / Unknown Venipuncture / Unknown 01/11/2019 2:32 PM CDT 01/11/2019 2:32 PM CDT Kain Wellington MD LAB - CHEMISTRY [facility] Performing Organization Address [facility] Co de Phone Number [address] [phone] * ACETAMINOPHEN LEVEL (01/11/2019 2:32 PM CDT) Acetaminophen <3.0 <30.0 mcg/mL 01/11/2019 3:15 PM CDT [facility] Blood BLOOD SPECIMEN / Unknown Venipuncture / Unknown 01/11/2019 2:32 PM CDT 01/11/2019 2:32 PM CDT Kain Wellington MD LAB - CHEMISTRY [facility] Performing Organization Address [facility] Co de Phone Number [address] [phone] * US BREAST LEFT LTD (11/28/2018 2:25 PM CDT) Only the most recent of2 resultswithin the time period is included. Anatomical Region Laterality Modality Breast Left Mammography 11/28/2018 2:21 PM CDT Impressions 11/28/2018 2:23 PM CDT IMPRESSION: No mammographic or sonographic evidence of malignancy. BI-RADS category 1, negative mammogram. RECOMMENDATION: ??Routine annual screening mammograms are recommended. This report was electronically signed by LEOBARDO LE M.D. ??on 11/28/2018 2:23 PM . Narrative [...] sonography and digital palpation was performed by pit crew support worker and physician throughout the inferior left breast. Multiple mobile lumps identified in this region on palpation correspond to fat lobules. No suspicious mass or dominant cyst is seen. This examination was subjected to CAD analysis. The results of this examination were discussed with the patient by Dr. Le. Castillo Max MD US ORDERABLES * MAMMO BILAT DIAGNOSTIC (11/28/2018 2:20 PM CDT) Anatomical Region Laterality Modality Breast Bilateral Mammography 11/28/2018 2:21 PM CDT Impressions 11/28/2018 2:23 PM CDT IMPRESSION: No mammographic or sonographic evidence of malignancy. BI-RADS category 1, negative mammogram. RECOMMENDATION: ??Routine annual screening mammograms are recommended. This report was electronically signed by LEOBARDO LE M.D. ??on 11/28/2018 2:23 PM . Narrative [...] sonography and digital palpation was performed by pit crew support worker and physician throughout the inferior left breast. Multiple mobile lumps identified in this region on palpation correspond to fat lobules. No suspicious mass or dominant cyst is seen. This examination was subjected to CAD analysis. The results of this examination were discussed with the patient by Dr. Le. Castillo Max MD MAMMO ORDERABLES * TOXASSURE SELECT URINE (11/24/2018 1:31 PM CDT) Summary FINAL [facility] INSURANCE BILL Comment: TOXASSURE SELECT 13 (MW) Test ? Result ? Flag ? Units Drug Present ??Carboxy-THC ?117 ? ng/mg creat ?? Carboxy-THC is a metabolite of tetrahydrocannabinol ??(THC). ?? Source of THC is most commonly illicit, but THC is also present ?? in a scheduled prescription medication. Test ?Result ?Flag ?? Units ?Ref Range ??Creatinine ?58 ? mg/dL ?>=20 Declared Medications: Medication list was not provided. For clinical consultation, please call . URINE SPECIMEN OBTAINED BY CLEAN CATCH PROCEDURE / Unknown 11/24/2018 1:31 PM CDT 11/24/2018 Narrative Resulting Agency Comment Lab Testing performed at: [facility] [address] [place] [id number] Lay Mckeon ROTOGRAVURE PRESS OPERATOR-STARTING GATE DRIVER LAB - URINE CH EMISTRY ORDERABLES [facility] INSURANCE BILL [address] [place] [address] * LDH BLOOD (11/17/2018 1:34 PM CDT) Only the most recent of56 resultswithin the time period is included. LDH Total 193 125 - 243 Units/L 11/17/2018 2:[address] [facility] Blood BLOOD SPECIMEN / Unknown Lab Venipuncture / Unknown 11/17/2018 1:34 PM CDT 11/17/2018 1:43 PM CDT Castillo Max MD LAB - CHEMISTRY OR DERABLES [address] [phone] * NV DRAIN/INJECT LARGE JOINT/BURSA (11/16/2018 2:26 PM CDT) Narrative Wai Lowry MD - 11/16/2018 2:26 PM CDT Wai Lowry MD ? 11/16/2018 ??2:26 PM INJECTION PROCEDURE NOTE: The injection site was marked. A timeout was performed. Under sterile conditions, without complications, tolerated well by the patient, 4 cc lidocaine and 80 mg (2 cc) triamcinolone were injected into the left subacromial space posteriorly. Wai Lowry MD PROCEDURE/MINOR SURG ICAL ORDERABLES * AMB REFERRAL TO PAIN CLINIC (09/16/2018 9:45 AM SENIOR CLIENT ADVISOR) Zuleika Mckeon MD OUTPATIENT REFERRALS * XR CHEST PA AND LATERAL (08/21/2018 10:42 AM SENIOR CLIENT ADVISOR) Only the most recent of2 resultswithin the time period is included. Anatomical Region Laterality Modality Chest Radiographic Jonna ging 08/21/2018 10:4 1 AM SENIOR CLIENT ADVISOR Impressions 08/21/2018 3:46 PM SENIOR CLIENT ADVISOR IMPRESSION: No acute pulmonary process. Dictated by Frantz Loaiza MD (transporter radiology). I, Dr. YANETH DELGADO have personally reviewed and interpreted this examination/study. This report was electronically signed by YANETH DELGADO ??on 08/21/2018 3:46 PM . Narrative 08/21/2018 3:46 PM SENIOR CLIENT ADVISOR EXAMINATION: XR CHEST 2VW HISTORY: swelling COMPARISON: ??04/17/2017 FINDINGS: Posterior cervicothoracic spinal fusion instrumentation is again seen. There is no focal consolidation, pleural effusion, or pneumothorax. The cardiomediastinal silhouette is normal. The visible bony thorax is intact. Procedure Note Yaneth Delgado MD - 08/21/2018 EXAMINATION: XR CHEST 2VW HISTORY: swelling COMPARISON: 04/17/2017 FINDINGS: Posterior cervicothoracic spinal fusion instrumentation is again seen. There is no focal consolidation, pleural effusion, or pneumothorax. The cardiomediastinal silhouette is normal. The visible bony thorax isintact. IMPRESSION: No acute pulmonary process. Dictated by Frantz Loaiza MD (transporter radiology). I, Dr. YANETH DELGADO have personally reviewed and interpreted this examination/study. This report was electronically signed by YANETH DELGADO on 08/21/20183:46 PM . Gabi Arnett MD DIAGNOSTIC IMAGING O RDERABLES * (ABNORMAL) URINALYSIS W/MICROSCOPIC NO CULTURE (08/21/2018 10:27 AM SENIOR CLIENT ADVISOR) Only the most recent of18 resultswithin the time period is included. Color UA Straw Straw, Yellow, Colorless 08/21/2018 10:38 AM [facility] Clarity UA Clear Clear, Slt Cloudy 08/21/2018 10:38 AM [facility] Specific Matthews UA 1.006 1.005 - 1.030 08/21/2018 10:38 AM [facility] pH UA 9.0(H) 5.0 - 8.0 pH 08/21/2018 10:38 AM [facility] Protein UA Negative Negative mg/dL 08/21/2018 10:38 AM [facility] Glucose UA Negative Negative mg/dL 08/21/2018 10:38 AM [facility] Ketone UA Negative Negative mg/dL 08/21/2018 10:38 AM [facility] Bilirubin UA Negative Negative mg/dL 08/21/2018 10:38 AM [facility] Blood UA 1+(A) Negative 08/21/2018 10:38 AM [facility] Nitrite UA Negative Negative 08/21/2018 10:38 AM [facility] Leukocyte Esterase Negative Negative 08/21/2018 10:38 AM [facility] Urobilinogen UA Negative Negative mg/dL 08/21/2018 10:38 AM [facility] RBC UA 0-2 None Seen, 0-2, 3-5 /HPF 08/21/2018 10:38 AM [facility] WBC UA 0-5 None Seen, 0-5 /HPF 08/21/2018 10:38 AM [facility] Squamous Epithelial Cells UA None Seen None Seen, 0-2 /HPF 08/21/2018 10:38 AM [facility] Mucus UA 1+ None, 1+ /LPF 08/21/2018 10:38 AM [facility] Urine URINE SPECIMEN OBTAINED BY CLEAN CATCH PROCEDURE / Unknown Collection / Unknown 08/21/2018 10:27 AM [facility] 08/21/2018 10:30 AM [facility] Gabi Arnett MD LAB - URINALYSIS ORD ERABLES [address] [phone] * INFLUENZA A+B PCR (08/21/2018 10:25 AM [facility]) Only the most recent of3 resultswithin the time period is included. Influenza A Rapid GILLIAN Negative Negative 08/21/2018 10:52 AM [facility] Influenza B GILLIAN Rapid Negative Negative 08/21/2018 10:52 AM [facility] Microbiology SPECIMEN FROM NASOPHARYNGEAL STRUCTURE / Unknown Collection / Unknown 08/21/2018 10:25 AM [facility] 08/21/2018 10:27 AM [facility] Narrative [facility] - 08/21/2018 10:52 AM [facility] Assay performed by Nucleic Acid Amplification. Results do not exclude the possibility of a mixed viral infection. NOTE: ??Detecting and identifying specific viral nucleic acids from individuals exhibiting signs and symptoms of respiratory infection aids in the diagnosis of respiratory infection, if used in conjunction with other clinical and laboratory findings. The results of this test should not be used as the sole basis for diagnosis, treatment, or patient management decisions. Gabi Arnett MD LAB - MICROBIOLOGY O RDERABLES [address] [phone] * XR SPINE ENTIRE 2 OR 3VW (08/08/2018 10:37 AM SENIOR CLIENT ADVISOR) Anatomical Region Laterality Modality Radiographic Jonna ging 08/08/2018 4:03 PM SENIOR CLIENT ADVISOR Impressions 08/09/2018 8:54 AM SENIOR CLIENT ADVISOR IMPRESSION: 1.C5-T12 posterior spinal fusion, unchanged. 2.T6 compression deformity, unchanged. Dictated by Frantz Loaiza MD (transporter radiology). I, Dr. EMIL CHUNG MD have personally reviewed and interpreted this examination/study. This report was electronically signed by EMIL CHUNG MD ??on 08/09/2018 8:54 AM . Narrative 08/09/2018 8:54 AM SENIOR CLIENT ADVISOR EXAMINATION: XR SPINE ENTIRE 2 OR 3VW HISTORY: BACK PAIN COMPARISON: Cervical, thoracic, and lumbar spine x-ray and CT dated 07/19/2018 FINDINGS: Instrumented posterior spinal fusion is present extending from C5 to T12 with posterior rods and screws. ??Cerclage wires are seen at the cervicothoracic junction. The hardware is intact. ??There is a T6 compression deformity fracture with approximately 75 percent height loss and without retropulsion. An IUD is present in the pelvis. Mild thoracolumbar scoliosis is seen. The right iliac crest is slightly higher than the left. Very mild degeneration is seen. Procedure Note Emil Chung MD - 08/09/2018 EXAMINATION: XR SPINE ENTIRE 2 OR 3VW HISTORY: BACK PAIN COMPARISON: Cervical, thoracic, and lumbar spine x-ray and CT dated 07/19/2018 FINDINGS: Instrumented posterior spinal fusion is present extending from C5 to T12 with posterior rods and screws. Cerclage wires are seen at the cervicothoracic junction. The hardware is intact. There is a T6 compression deformity fracture with approximately 75 percent height loss and without retropulsion. An IUD is present in the pelvis. Mild thoracolumbar scoliosis is seen. The right iliac crest is slightlyhigher than the left. Very mild degeneration is seen. IMPRESSION: 1.C5-T12 posterior spinal fusion, unchanged. 2.T6 compression deformity, unchanged. Dictated by Frantz Loaiza MD (transporter radiology). Dr. EMIL Muller MD have personally reviewed and interpreted this examination/study. This report was electronically signed by EMIL CHUNG MD on08/09/2018 8:54 AM . Zuleika Mckeon MD DIAGNOSTIC IMAGING O RDERABLES * XR LUMBAR SPINE 2 OR 3VW (07/19/2018 2:53 PM SENIOR CLIENT ADVISOR) Anatomical Region Laterality Modality Spine Radiographic Jonna ging 07/19/2018 2:58 PM SENIOR CLIENT ADVISOR Impressions 07/19/2018 3:24 PM SENIOR CLIENT ADVISOR IMPRESSION: No acute fracture or subluxation identified. C5-T12 posterior spinal fusion, with intact hardware, unchanged. T6 compression deformity, unchanged. Dictated by Lachelle Boyce MD (transporter radiology). Dr. YVES Muller M.D. have personally reviewed and interpreted this examination/study. This report was electronically signed by YVES MARX M.D. ??on 07/19/2018 3:24 PM . Narrative 07/19/2018 3:24 PM SENIOR CLIENT ADVISOR EXAMINATION: XR CERVICAL SPINE 2 OR 3VW, XR LUMBAR SPINE 2 OR 3VW, XR THORACIC SPINE 3VW HISTORY: Neuropathy FINDINGS: Comparison made to cervical spine radiographs dated 11/10/2017. Patient is status post instrumented posterior cervicothoracic fusion with vertical rods and paired pedicle screws at C5-T4, a right pedicle screw at T9, a left pedicle screw at T10, paired pedicle screws at T11, and a right pedicle screw at T12. Posterior cerclage wire is seen superimposed over C7-T2. Cervical spine: There is loss of normal cervical lordosis. The vertebral bodies are normal in height. The intervertebral disc spaces through C2-C5 are maintained. The alignment of the dens and lateral masses are not well seen in the open mouth view. The predental interval and prevertebral soft tissues are normal. Thoracic spine: The vertebral bodies are normally aligned. There is a 60% loss of vertebral body height at T6, unchanged. There is minimal loss of intervertebral disc space consistent with degenerative disease. Lumbar spine: Alignment is normal. The vertebral bodies are normal in height. The intervertebral disc spaces are maintained. The sacroiliac joints are normal. An IUD is noted. Procedure Note Yves Marx MD - 07/19/2018 EXAMINATION: XR CERVICAL SPINE 2 OR 3VW, XR LUMBAR SPINE 2 OR 3VW, XR THORACIC SPINE 3VW HISTORY: Neuropathy FINDINGS: Comparison made to cervical spine radiographs dated 11/10/2017. Patient is status post instrumented posterior cervicothoracic fusionwith vertical rods and paired pedicle screws at C5-T4, a right pedicle screwat T9, a left pedicle screw at T10, paired pedicle screws at T11, and aright pedicle screw at T12. Posterior cerclage wire is seen superimposed over C7-T2. Cervical spine: There is loss of normal cervical lordosis. The vertebral bodies are normal in height. The intervertebral disc spaces throughC2-C5 are maintained. The alignment of the dens and lateral masses are notwell seen in the open mouth view. The predental interval and prevertebralsoft tissues are normal. Thoracic spine: The vertebral bodies are normally aligned. There is a60% loss of vertebral body height at T6, unchanged. There is minimal loss of intervertebral disc space consistent with degenerative disease. Lumbar spine: Alignment is normal. The vertebral bodies are normal in height. The intervertebral disc spaces are maintained. The sacroiliac joints are normal. An IUD is noted. IMPRESSION: No acute fracture or subluxation identified. C5-T12 posterior spinal fusion, with intact hardware, unchanged. T6 compression deformity, unchanged. Dictated by Lachelle Boyce MD (transporter radiology). I, Dr. YVES MARX M.D. have personally reviewed and interpreted this examination/study. This report was electronically signed by YVES MARX M.D. on07/19/2018 3:24 PM . Jah Baeza DO DIAGNOSTIC IMAGING O RDERABLES * XR THORACIC SPINE 3VW (07/19/2018 2:53 PM SENIOR CLIENT ADVISOR) Anatomical Region Laterality Modality Spine Radiographic Jonna ging 07/19/2018 2:58 PM SENIOR CLIENT ADVISOR Impressions 07/19/2018 3:24 PM SENIOR CLIENT ADVISOR IMPRESSION: No acute fracture or subluxation identified. C5-T12 posterior spinal fusion, with intact hardware, unchanged. T6 compression deformity, unchanged. Dictated by Lachelle Boyce MD (transporter radiology). I, Dr. YVES MARX M.D. have personally reviewed and interpreted this examination/study. This report was electronically signed by YVES MARX M.D. ??on 07/19/2018 3:24 PM . Narrative 07/19/2018 3:24 PM SENIOR CLIENT ADVISOR EXAMINATION: XR CERVICAL SPINE 2 OR 3VW, XR LUMBAR SPINE 2 OR 3VW, XR THORACIC SPINE 3VW HISTORY: Neuropathy FINDINGS: Comparison made to cervical spine radiographs dated 11/10/2017. Patient is status post instrumented posterior cervicothoracic fusion with vertical rods and paired pedicle screws at C5-T4, a right pedicle screw at T9, a left pedicle screw at T10, paired pedicle screws at T11, and a right pedicle screw at T12. Posterior cerclage wire is seen superimposed over C7-T2. Cervical spine: There is loss of normal cervical lordosis. The vertebral bodies are normal in height. The intervertebral disc spaces through C2-C5 are maintained. The alignment of the dens and lateral masses are not well seen in the open mouth view. The predental interval and prevertebral soft tissues are normal. Thoracic spine: The vertebral bodies are normally aligned. There is a 60% loss of vertebral body height at T6, unchanged. There is minimal loss of intervertebral disc space consistent with degenerative disease. Lumbar spine: Alignment is normal. The vertebral bodies are normal in height. The intervertebral disc spaces are maintained. The sacroiliac joints are normal. An IUD is noted. Procedure Note Yves Marx MD - 07/19/2018 EXAMINATION: XR CERVICAL SPINE 2 OR 3VW, XR LUMBAR SPINE 2 OR 3VW, XR THORACIC SPINE 3VW HISTORY: Neuropathy FINDINGS: Comparison made to cervical spine radiographs dated 11/10/2017. Patient is status post instrumented posterior cervicothoracic fusionwith vertical rods and paired pedicle screws at C5-T4, a right pedicle screwat T9, a left pedicle screw at T10, paired pedicle screws at T11, and aright pedicle screw at T12. Posterior cerclage wire is seen superimposed over C7-T2. Cervical spine: There is loss of normal cervical lordosis. The vertebral bodies are normal in height. The intervertebral disc spaces throughC2-C5 are maintained. The alignment of the dens and lateral masses are notwell seen in the open mouth view. The predental interval and prevertebralsoft tissues are normal. Thoracic spine: The vertebral bodies are normally aligned. There is a60% loss of vertebral body height at T6, unchanged. There is minimal loss of intervertebral disc space consistent with degenerative disease. Lumbar spine: Alignment is normal. The vertebral bodies are normal in height. The intervertebral disc spaces are maintained. The sacroiliac joints are normal. An IUD is noted. IMPRESSION: No acute fracture or subluxation identified. C5-T12 posterior spinal fusion, with intact hardware, unchanged. T6 compression deformity, unchanged. Dictated by Lachelle Boyce MD (transporter radiology). Dr. YVES Muller M.D. have personally reviewed and interpreted this examination/study. This report was electronically signed by YVES MARX M.D. on07/19/2018 3:24 PM . Jah Baeza DO DIAGNOSTIC IMAGING O RDERABLES * XR CERVICAL SPINE 2 OR 3VW (07/19/2018 2:52 PM SENIOR CLIENT ADVISOR) Only the most recent of7 resultswithin the time period is included. Anatomical Region Laterality Modality Spine Radiographic Jonna ging 07/19/2018 2:58 PM SENIOR CLIENT ADVISOR Impressions 07/19/2018 3:24 PM SENIOR CLIENT ADVISOR IMPRESSION: No acute fracture or subluxation identified. C5-T12 posterior spinal fusion, with intact hardware, unchanged. T6 compression deformity, unchanged. Dictated by Lachelle Boyce MD (transporter radiology). Dr. YVES Muller M.D. have personally reviewed and interpreted this examination/study. This report was electronically signed by YVES MARX M.D. ??on 07/19/2018 3:24 PM . Narrative 07/19/2018 3:24 PM SENIOR CLIENT ADVISOR EXAMINATION: XR CERVICAL SPINE 2 OR 3VW, XR LUMBAR SPINE 2 OR 3VW, XR THORACIC SPINE 3VW HISTORY: Neuropathy FINDINGS: Comparison made to cervical spine radiographs dated 11/10/2017. Patient is status post instrumented posterior cervicothoracic fusion with vertical rods and paired pedicle screws at C5-T4, a right pedicle screw at T9, a left pedicle screw at T10, paired pedicle screws at T11, and a right pedicle screw at T12. Posterior cerclage wire is seen superimposed over C7-T2. Cervical spine: There is loss of normal cervical lordosis. The vertebral bodies are normal in height. The intervertebral disc spaces through C2-C5 are maintained. The alignment of the dens and lateral masses are not well seen in the open mouth view. The predental interval and prevertebral soft tissues are normal. Thoracic spine: The vertebral bodies are normally aligned. There is a 60% loss of vertebral body height at T6, unchanged. There is minimal loss of intervertebral disc space consistent with degenerative disease. Lumbar spine: Alignment is normal. The vertebral bodies are normal in height. The intervertebral disc spaces are maintained. The sacroiliac joints are normal. An IUD is noted. Procedure Note Yves Marx MD - 07/19/2018 EXAMINATION: XR CERVICAL SPINE 2 OR 3VW, XR LUMBAR SPINE 2 OR 3VW, XR THORACIC SPINE 3VW HISTORY: Neuropathy FINDINGS: Comparison made to cervical spine radiographs dated 11/10/2017. Patient is status post instrumented posterior cervicothoracic fusionwith vertical rods and paired pedicle screws at C5-T4, a right pedicle screwat T9, a left pedicle screw at T10, paired pedicle screws at T11, and aright pedicle screw at T12. Posterior cerclage wire is seen superimposed over C7-T2. Cervical spine: There is loss of normal cervical lordosis. The vertebral bodies are normal in height. The intervertebral disc spaces throughC2-C5 are maintained. The alignment of the dens and lateral masses are notwell seen in the open mouth view. The predental interval and prevertebralsoft tissues are normal. Thoracic spine: The vertebral bodies are normally aligned. There is a60% loss of vertebral body height at T6, unchanged. There is minimal loss of intervertebral disc space consistent with degenerative disease. Lumbar spine: Alignment is normal. The vertebral bodies are normal in height. The intervertebral disc spaces are maintained. The sacroiliac joints are normal. An IUD is noted. IMPRESSION: No acute fracture or subluxation identified. C5-T12 posterior spinal fusion, with intact hardware, unchanged. T6 compression deformity, unchanged. Dictated by Lachelle Boyce MD (transporter radiology). Dr. YVES Muller M.D. have personally reviewed and interpreted this examination/study. This report was electronically signed by YVES MARX M.D. on07/19/2018 3:24 PM . Jah Baeza DO DIAGNOSTIC IMAGING O RDERABLES * CT LUMBAR SPINE WO CONTRAST (07/19/2018 2:35 AM SENIOR CLIENT ADVISOR) Anatomical Region Laterality Modality Spine Computed Tomogra phy 07/19/2018 1:08 PM SENIOR CLIENT ADVISOR Impressions 07/19/2018 2:41 PM SENIOR CLIENT ADVISOR IMPRESSION: 1.Postoperative appearance of posterior instrumented cervicothoracic spine fixation from C5 to T12 as outlined. 2.No acute fracture of the cervical, thoracic and lumbar spine. 3.Chronic pathologic T6 compression deformity with 80-90% height loss. 4.Large lytic lesion of the L5 vertebral body, likely representing metastatic disease. This report was approved ??by Stan Mayes ?? on 07/19/2018 2:[address] SHANI Muller have personally reviewed and interpreted this examination/study. This report was electronically signed by SHANI LU ??on 07/19/2018 2:41 PM . Narrative 07/19/2018 2:41 PM SENIOR CLIENT ADVISOR EXAMINATION: Computed tomography (CT) of the cervical, thoracic and lumbar spine without contrast HISTORY: EVAL FX, SUBLUXATION TECHNIQUE: CT of the cervical spine thoracic, and lumbar was performed without contrast according to standard protocol. COMPARISON: MRI of the cervical, thoracic, lumbar spine dated 07/18/[address] of the thoracic spine dated 11/05/2012. FINDINGS: There is an interval postoperative appearance from the cervicothoracic posterior spinal fusion from the C5-T12 levels with metallic rods and multilevel screws. There is bilateral fixation screws through the lateral mass of C5, C6, and C7. There is bilateral transpedicular screws at T1, T2, and T3. There is a right transpedicular screw at T9 and a left transpedicular screw at T10 and bilateral transpedicular screws at T11 and a right transpedicular screw at T12. There is loss of of the normal cervical lordosis. Evaluation of the lower cervical and upper thoracic spine for metastatic disease and fractures is limited due to artifacts from the hardware. There is no convincing evidence of acute fracture or subluxation is identified in the cervical spine. There is no acute fracture. There is no change in the appearance of a chronic T6 compression deformity with 80-90% height loss. Previously described lytic lesions in T5, T10, and T11 are not visualized on today's exam. There is apparent interval resolution of a previously noted lytic and sclerotic lesion in the posterior elements of the T7 vertebral body. A large lytic lesion is seen in the L5 vertebral body. There is straightening of the normal cervical lordosis, which may be positional. Otherwise, the alignment of the spine appears grossly normal. There are degenerative changes of the discs, endplates, facets and uncovertebral joints. There is no significant spinal canal or foraminal stenosis. There is no significant soft tissue abnormality. Procedure Note Shani Lu MD - 07/19/2018 EXAMINATION: Computed tomography (CT) of the cervical, thoracic andlumbar spine without contrast HISTORY: EVAL FX, SUBLUXATION TECHNIQUE: CT of the cervical spine thoracic, and lumbar was performed without contrast according to standard protocol. COMPARISON: MRI of the cervical, thoracic, lumbar spine dated 07/18/[address] of the thoracic spine dated 11/05/2012. FINDINGS: There is an interval postoperative appearance from the cervicothoracic posterior spinal fusion from the C5-T12 levels with metallic rods and multilevel screws. There is bilateral fixation screws through thelateral mass of C5, C6, and C7. There is bilateral transpedicular screws at T1, T2, and T3. There is a right transpedicular screw at T9 and a left transpedicular screw at T10 and bilateral transpedicular screws at T11and a right transpedicular screw at T12. There is loss of of the normal cervical lordosis. Evaluation of the lower cervical and upper thoracic spine for metastatic disease and fractures is limited due to artifacts from the hardware. There is no convincing evidence of acute fracture or subluxation is identified in the cervical spine. There is no acute fracture. There is no change in the appearance of a chronic T6 compression deformity with 80-90% height loss. Previously described lytic lesions in T5, T10, and T11 are not visualized ontoday's exam. There is apparent interval resolution of a previously noted lytic and sclerotic lesion in the posterior elements of the T7 vertebral body.A large lytic lesion is seen in the L5 vertebral body. There is straightening of the normal cervical lordosis, which may be positional. Otherwise, the alignment of the spine appears grossly normal. There are degenerative changes of the discs, endplates, facets and uncovertebral joints. There is no significant spinal canal or foraminal stenosis.There is no significant soft tissue abnormality. IMPRESSION: 1.Postoperative appearance of posterior instrumented cervicothoracicspine fixation from C5 to T12 as outlined. 2.No acute fracture of the cervical, thoracic and lumbar spine. 3.Chronic pathologic T6 compression deformity with 80-90% height loss. 4.Large lytic lesion of the L5 vertebral body, likely representing metastatic disease. This report was approved by Stan Mayes on 07/19/2018 2:41 PM . Renzo, Dr. SHANI LU have personally reviewed and interpreted this examination/study. This report was electronically signed by SHANI LU on 07/19/2018 2:41 PM . Navjot Amato MD CT ORDERABLES * CT THORACIC SPINE WO CONTRAST (07/19/2018 2:35 AM SENIOR CLIENT ADVISOR) Only the most recent of2 resultswithin the time period is included. Anatomical Region Laterality Modality Spine Computed Tomogra phy 07/19/2018 1:08 PM SENIOR CLIENT ADVISOR Impressions 07/19/2018 2:41 PM SENIOR CLIENT ADVISOR IMPRESSION: 1.Postoperative appearance of posterior instrumented cervicothoracic spine fixation from C5 to T12 as outlined. 2.No acute fracture of the cervical, thoracic and lumbar spine. 3.Chronic pathologic T6 compression deformity with 80-90% height loss. 4.Large lytic lesion of the L5 vertebral body, likely representing metastatic disease. This report was approved ??by Stan Mayes ?? on 07/19/2018 2:[address] SHANI Muller have personally reviewed and interpreted this examination/study. This report was electronically signed by SHANI LU ??on 07/19/2018 2:41 PM . Narrative 07/19/2018 2:41 PM SENIOR CLIENT ADVISOR EXAMINATION: Computed tomography (CT) of the cervical, thoracic and lumbar spine without contrast HISTORY: EVAL FX, SUBLUXATION TECHNIQUE: CT of the cervical spine thoracic, and lumbar was performed without contrast according to standard protocol. COMPARISON: MRI of the cervical, thoracic, lumbar spine dated 07/18/[address] of the thoracic spine dated 11/05/2012. FINDINGS: There is an interval postoperative appearance from the cervicothoracic posterior spinal fusion from the C5-T12 levels with metallic rods and multilevel screws. There is bilateral fixation screws through the lateral mass of C5, C6, and C7. There is bilateral transpedicular screws at T1, T2, and T3. There is a right transpedicular screw at T9 and a left transpedicular screw at T10 and bilateral transpedicular screws at T11 and a right transpedicular screw at T12. There is loss of of the normal cervical lordosis. Evaluation of the lower cervical and upper thoracic spine for metastatic disease and fractures is limited due to artifacts from the hardware. There is no convincing evidence of acute fracture or subluxation is identified in the cervical spine. There is no acute fracture. There is no change in the appearance of a chronic T6 compression deformity with 80-90% height loss. Previously described lytic lesions in T5, T10, and T11 are not visualized on today's exam. There is apparent interval resolution of a previously noted lytic and sclerotic lesion in the posterior elements of the T7 vertebral body. A large lytic lesion is seen in the L5 vertebral body. There is straightening of the normal cervical lordosis, which may be positional. Otherwise, the alignment of the spine appears grossly normal. There are degenerative changes of the discs, endplates, facets and uncovertebral joints. There is no significant spinal canal or foraminal stenosis. There is no significant soft tissue abnormality. Procedure Note Shani Lu MD - 07/19/2018 EXAMINATION: Computed tomography (CT) of the cervical, thoracic andlumbar spine without contrast HISTORY: EVAL FX, SUBLUXATION TECHNIQUE: CT of the cervical spine thoracic, and lumbar was performed without contrast according to standard protocol. COMPARISON: MRI of the cervical, thoracic, lumbar spine dated 07/18/[address] of the thoracic spine dated 11/05/2012. FINDINGS: There is an interval postoperative appearance from the cervicothoracic posterior spinal fusion from the C5-T12 levels with metallic rods and multilevel screws. There is bilateral fixation screws through thelateral mass of C5, C6, and C7. There is bilateral transpedicular screws at T1, T2, and T3. There is a right transpedicular screw at T9 and a left transpedicular screw at T10 and bilateral transpedicular screws at T11and a right transpedicular screw at T12. There is loss of of the normal cervical lordosis. Evaluation of the lower cervical and upper thoracic spine for metastatic disease and fractures is limited due to artifacts from the hardware. There is no convincing evidence of acute fracture or subluxation is identified in the cervical spine. There is no acute fracture. There is no change in the appearance of a chronic T6 compression deformity with 80-90% height loss. Previously described lytic lesions in T5, T10, and T11 are not visualized ontoday's exam. There is apparent interval resolution of a previously noted lytic and sclerotic lesion in the posterior elements of the T7 vertebral body.A large lytic lesion is seen in the L5 vertebral body. There is straightening of the normal cervical lordosis, which may be positional. Otherwise, the alignment of the spine appears grossly normal. There are degenerative changes of the discs, endplates, facets and uncovertebral joints. There is no significant spinal canal or foraminal stenosis.There is no significant soft tissue abnormality. IMPRESSION: 1.Postoperative appearance of posterior instrumented cervicothoracicspine fixation from C5 to T12 as outlined. 2.No acute fracture of the cervical, thoracic and lumbar spine. 3.Chronic pathologic T6 compression deformity with 80-90% height loss. 4.Large lytic lesion of the L5 vertebral body, likely representing metastatic disease. This report was approved by Stan Mayes on 07/19/2018 2:41 PM . I, Dr. SHANI LU have personally reviewed and interpreted this examination/study. This report was electronically signed by SHANI LU on 07/19/2018 2:41 PM . Navjot Amato MD CT ORDERABLES * MRI LUMBAR SPINE WO CONTRAST (07/18/2018 7:36 PM SENIOR CLIENT ADVISOR) Anatomical Region Laterality Modality Spine Magnetic Resonan ce 07/19/2018 7:15 AM SENIOR CLIENT ADVISOR Impressions 07/19/2018 9:36 AM SENIOR CLIENT ADVISOR IMPRESSION: 1.Postoperative appearance of posterior instrumented cervicothoracic spine from the C5-T12 levels. 2.Examination degraded by metal artifact. Within this limitation, no evidence of acute fracture or subluxation. No evidence of cord compression. I, Dr. ALBERTO AKERS have personally reviewed and interpreted this examination/study. This report was electronically signed by ALBERTO AKERS ??on 07/19/2018 9:36 AM . Narrative 07/19/2018 9:36 AM SENIOR CLIENT ADVISOR EXAMINATION: Magnetic resonance imaging (MRI) of the cervical, thoracic, and lumbar spine without contrast HISTORY: fall, weakness, hx of spinal surgery, history of lymphoma since 2012. TECHNIQUE: MRI of the cervical, thoracic, and lumbar spine was performed without contrast according to standard protocol. FINDINGS: Comparison is made with a study from concurrent CT Total Spine, CT abdomen and pelvis from 04/17/2017, and MRI cervical spine dated on 06/12/2014. Cervical spine: Examination is limited by artifact from metallic hardware and motion. Postoperative appearance of posterior instrumented cervicothoracic spine from the C5-T12 levels is reidentified. There is loss of normal cervical lordosis. Vertebral bodies are normal in height without evidence of compression fractures. Marrow signal intensity is normal. The craniocervical junction and visualized portions of the posterior fossa appear normal. The spinal cord appears normal. The anterior and posterior longitudinal ligaments as well as the posterior ligamentous complex appear intact. In conjunction with the findings of the concurrently obtained CT scan, there is no central canal stenosis. There are varying degrees of mild facet osteoarthritis at C5-C6, C6-C7 and C7-T1. There are varying degrees of mild uncovertebral joint osteoarthritis at C5-C6, C6-C7, and C7-T1 with the same degree of neural foraminal stenosis at these levels. Normal flow voids are identified in the vertebral arteries. Thoracic spine: Examination is significantly degraded by artifact from metallic hardware. Redemonstrated posterior cervicothoracic spinal instrumentation from the C5-T12 levels. The alignment is normal. Chronic vertebra plana deformity of the T6 vertebral body is identified. Marrow signal intensity is normal without MR evidence of fracture or marrow lesion. The spinal cord is obscured on all sequences and cannot be evaluated. There is likely no spinal cord compression. There are minor degenerative changes of the intervertebral discs. No central canal stenosis is seen. The facets and neural foramina are mostly obscured due to the artifact and not adequately evaluated. No soft tissue fluid collection is seen. Lumbar spine: The alignment is normal. Corresponding to the lucent lesion seen on prior CT scans, there is a lesion measuring up to 1.8 cm in L5 vertebral body with fat component which may a hemangioma is stable. Marrow signal intensity is otherwise normal. The vertebral bodies are normal in height without evidence of compression fractures. The conus medullaris terminates at the level of T12-L1 and the distal spinal cord signal intensity is normal. The anterior and posterior longitudinal ligaments as well as the posterior ligamentous complex appear intact. There is diffuse disc bulge at L3-L4 and L4-L5 levels. No central canal stenosis is seen. The facets demonstrate degenerative changes. No neural foraminal stenosis is seen. No soft tissue abnormality is identified. Procedure Note Alberto Akers MD - 07/19/2018 EXAMINATION: Magnetic resonance imaging (MRI) of the cervical, thoracic, and lumbar spine without contrast HISTORY: fall, weakness, hx of spinal surgery, history of lymphoma since 2012. TECHNIQUE: MRI of the cervical, thoracic, and lumbar spine was performed without contrast according to standard protocol. FINDINGS: Comparison is made with a study from concurrent CT TotalSpine, CT abdomen and pelvis from 04/17/2017, and MRI cervical spine dated on 06/12/2014. Cervical spine: Examination is limited by artifact from metallic hardware and motion. Postoperative appearance of posterior instrumented cervicothoracic spine from the C5-T12 levels is reidentified. There is loss of normal cervical lordosis. Vertebral bodies are normal in height without evidence of compression fractures. Marrow signal intensity is normal. The craniocervical junction and visualized portions of the posterior fossa appear normal. The spinal cord appears normal. The anterior andposterior longitudinal ligaments as well as the posterior ligamentous complexappear intact. In conjunction with the findings of the concurrently obtained CT scan, there is no central canal stenosis. There are varying degrees of mild facet osteoarthritis at C5-C6, C6-C7 and C7-T1. There are varyingdegrees of mild uncovertebral joint osteoarthritis at C5-C6, C6-C7, and C7-T1with the same degree of neural foraminal stenosis at these levels. Normalflow voids are identified in the vertebral arteries. Thoracic spine: Examination is significantly degraded by artifact from metallichardware. Redemonstrated posterior cervicothoracic spinal instrumentation from the C5-T12 levels. The alignment is normal. Chronic vertebra plana deformity of the T6 vertebral body is identified. Marrow signal intensity isnormal without MR evidence of fracture or marrow lesion. The spinal cord is obscured on all sequences and cannot be evaluated. There is likely no spinal cord compression. There are minor degenerative changes of the intervertebral discs. No central canal stenosis is seen. The facets and neural foramina aremostly obscured due to the artifact and not adequately evaluated. No softtissue fluid collection is seen. Lumbar spine: The alignment is normal. Corresponding to the lucent lesion seen onprior CT scans, there is a lesion measuring up to 1.8 cm in L5 vertebral body with fat component which may a hemangioma is stable. Marrow signal intensity is otherwise normal. The vertebral bodies are normal in height without evidence of compression fractures. The conus medullaristerminates at the level of T12-L1 and the distal spinal cord signal intensity is normal. The anterior and posterior longitudinal ligaments as well as the posterior ligamentous complex appear intact. There is diffuse disc bulge at L3-L4 and L4-L5 levels. No central canal stenosis is seen. The facets demonstrate degenerative changes. No neural foraminal stenosis is seen. No soft tissue abnormality is identified. IMPRESSION: 1.Postoperative appearance of posterior instrumented cervicothoracicspine from the C5-T12 levels. 2.Examination degraded by metal artifact. Within this limitation, no evidence of acute fracture or subluxation. No evidence of cord compression. I, Dr. ALBERTO AKERS have personally reviewed and interpreted this examination/study. This report was electronically signed by ALBERTO AKERS on 07/19/2018 9:36 AM . Helena Mcfadden DO MR ORDERABLES * MRI THORACIC SPINE WO CONTRAST (07/18/2018 7:23 PM SENIOR CLIENT ADVISOR) Anatomical Region Laterality Modality Chest Magnetic Resonan ce 07/19/2018 7:15 AM SENIOR CLIENT ADVISOR Impressions 07/19/2018 9:36 AM SENIOR CLIENT ADVISOR IMPRESSION: 1.Postoperative appearance of posterior instrumented cervicothoracic spine from the C5-T12 levels. 2.Examination degraded by metal artifact. Within this limitation, no evidence of acute fracture or subluxation. No evidence of cord compression. I, Dr. ALBERTO AKERS have personally reviewed and interpreted this examination/study. This report was electronically signed by ALBERTO AKERS ??on 07/19/2018 9:36 AM . Narrative 07/19/2018 9:36 AM SENIOR CLIENT ADVISOR EXAMINATION: Magnetic resonance imaging (MRI) of the cervical, thoracic, and lumbar spine without contrast HISTORY: fall, weakness, hx of spinal surgery, history of lymphoma since 2012. TECHNIQUE: MRI of the cervical, thoracic, and lumbar spine was performed without contrast according to standard protocol. FINDINGS: Comparison is made with a study from concurrent CT Total Spine, CT abdomen and pelvis from 04/17/2017, and MRI cervical spine dated on 06/12/2014. Cervical spine: Examination is limited by artifact from metallic hardware and motion. Postoperative appearance of posterior instrumented cervicothoracic spine from the C5-T12 levels is reidentified. There is loss of normal cervical lordosis. Vertebral bodies are normal in height without evidence of compression fractures. Marrow signal intensity is normal. The craniocervical junction and visualized portions of the posterior fossa appear normal. The spinal cord appears normal. The anterior and posterior longitudinal ligaments as well as the posterior ligamentous complex appear intact. In conjunction with the findings of the concurrently obtained CT scan, there is no central canal stenosis. There are varying degrees of mild facet osteoarthritis at C5-C6, C6-C7 and C7-T1. There are varying degrees of mild uncovertebral joint osteoarthritis at C5-C6, C6-C7, and C7-T1 with the same degree of neural foraminal stenosis at these levels. Normal flow voids are identified in the vertebral arteries. Thoracic spine: Examination is significantly degraded by artifact from metallic hardware. Redemonstrated posterior cervicothoracic spinal instrumentation from the C5-T12 levels. The alignment is normal. Chronic vertebra plana deformity of the T6 vertebral body is identified. Marrow signal intensity is normal without MR evidence of fracture or marrow lesion. The spinal cord is obscured on all sequences and cannot be evaluated. There is likely no spinal cord compression. There are minor degenerative changes of the intervertebral discs. No central canal stenosis is seen. The facets and neural foramina are mostly obscured due to the artifact and not adequately evaluated. No soft tissue fluid collection is seen. Lumbar spine: The alignment is normal. Corresponding to the lucent lesion seen on prior CT scans, there is a lesion measuring up to 1.8 cm in L5 vertebral body with fat component which may a hemangioma is stable. Marrow signal intensity is otherwise normal. The vertebral bodies are normal in height without evidence of compression fractures. The conus medullaris terminates at the level of T12-L1 and the distal spinal cord signal intensity is normal. The anterior and posterior longitudinal ligaments as well as the posterior ligamentous complex appear intact. There is diffuse disc bulge at L3-L4 and L4-L5 levels. No central canal stenosis is seen. The facets demonstrate degenerative changes. No neural foraminal stenosis is seen. No soft tissue abnormality is identified. Procedure Note Alberto Akers MD - 07/19/2018 EXAMINATION: Magnetic resonance imaging (MRI) of the cervical, thoracic, and lumbar spine without contrast HISTORY: fall, weakness, hx of spinal surgery, history of lymphoma since 2012. TECHNIQUE: MRI of the cervical, thoracic, and lumbar spine was performed without contrast according to standard protocol. FINDINGS: Comparison is made with a study from concurrent CT TotalSpine, CT abdomen and pelvis from 04/17/2017, and MRI cervical spine dated on 06/12/2014. Cervical spine: Examination is limited by artifact from metallic hardware and motion. Postoperative appearance of posterior instrumented cervicothoracic spine from the C5-T12 levels is reidentified. There is loss of normal cervical lordosis. Vertebral bodies are normal in height without evidence of compression fractures. Marrow signal intensity is normal. The craniocervical junction and visualized portions of the posterior fossa appear normal. The spinal cord appears normal. The anterior andposterior longitudinal ligaments as well as the posterior ligamentous complexappear intact. In conjunction with the findings of the concurrently obtained CT scan, there is no central canal stenosis. There are varying degrees of mild facet osteoarthritis at C5-C6, C6-C7 and C7-T1. There are varyingdegrees of mild uncovertebral joint osteoarthritis at C5-C6, C6-C7, and C7-T1with the same degree of neural foraminal stenosis at these levels. Normalflow voids are identified in the vertebral arteries. Thoracic spine: Examination is significantly degraded by artifact from metallichardware. Redemonstrated posterior cervicothoracic spinal instrumentation from the C5-T12 levels. The alignment is normal. Chronic vertebra plana deformity of the T6 vertebral body is identified. Marrow signal intensity isnormal without MR evidence of fracture or marrow lesion. The spinal cord is obscured on all sequences and cannot be evaluated. There is likely no spinal cord compression. There are minor degenerative changes of the intervertebral discs. No central canal stenosis is seen. The facets and neural foramina aremostly obscured due to the artifact and not adequately evaluated. No softtissue fluid collection is seen. Lumbar spine: The alignment is normal. Corresponding to the lucent lesion seen onprior CT scans, there is a lesion measuring up to 1.8 cm in L5 vertebral body with fat component which may a hemangioma is stable. Marrow signal intensity is otherwise normal. The vertebral bodies are normal in height without evidence of compression fractures. The conus medullaristerminates at the level of T12-L1 and the distal spinal cord signal intensity is normal. The anterior and posterior longitudinal ligaments as well as the posterior ligamentous complex appear intact. There is diffuse disc bulge at L3-L4 and L4-L5 levels. No central canal stenosis is seen. The facets demonstrate degenerative changes. No neural foraminal stenosis is seen. No soft tissue abnormality is identified. IMPRESSION: 1.Postoperative appearance of posterior instrumented cervicothoracicspine from the C5-T12 levels. 2.Examination degraded by metal artifact. Within this limitation, no evidence of acute fracture or subluxation. No evidence of cord compression. I, Dr. ALBEROT AKERS have personally reviewed and interpreted this examination/study. This report was electronically signed by ALBERTO AKERS on 07/19/2018 9:36 AM . Helena Mcfadden DO MR ORDERABLES * MRI CERVICAL SPINE WO CONTRAST (07/18/2018 6:58 PM SENIOR CLIENT ADVISOR) Anatomical Region Laterality Modality Pelvis Magnetic Resonan ce 07/19/2018 7:15 AM SENIOR CLIENT ADVISOR Impressions 07/19/2018 9:36 AM SENIOR CLIENT ADVISOR IMPRESSION: 1.Postoperative appearance of posterior instrumented cervicothoracic spine from the C5-T12 levels. 2.Examination degraded by metal artifact. Within this limitation, no evidence of acute fracture or subluxation. No evidence of cord compression. I, Dr. ALBERTO AKERS have personally reviewed and interpreted this examination/study. This report was electronically signed by ALBERTO AKERS ??on 07/19/2018 9:36 AM . Narrative 07/19/2018 9:36 AM SENIOR CLIENT ADVISOR EXAMINATION: Magnetic resonance imaging (MRI) of the cervical, thoracic, and lumbar spine without contrast HISTORY: fall, weakness, hx of spinal surgery, history of lymphoma since 2012. TECHNIQUE: MRI of the cervical, thoracic, and lumbar spine was performed without contrast according to standard protocol. FINDINGS: Comparison is made with a study from concurrent CT Total Spine, CT abdomen and pelvis from 04/17/2017, and MRI cervical spine dated on 06/12/2014. Cervical spine: Examination is limited by artifact from metallic hardware and motion. Postoperative appearance of posterior instrumented cervicothoracic spine from the C5-T12 levels is reidentified. There is loss of normal cervical lordosis. Vertebral bodies are normal in height without evidence of compression fractures. Marrow signal intensity is normal. The craniocervical junction and visualized portions of the posterior fossa appear normal. The spinal cord appears normal. The anterior and posterior longitudinal ligaments as well as the posterior ligamentous complex appear intact. In conjunction with the findings of the concurrently obtained CT scan, there is no central canal stenosis. There are varying degrees of mild facet osteoarthritis at C5-C6, C6-C7 and C7-T1. There are varying degrees of mild uncovertebral joint osteoarthritis at C5-C6, C6-C7, and C7-T1 with the same degree of neural foraminal stenosis at these levels. Normal flow voids are identified in the vertebral arteries. Thoracic spine: Examination is significantly degraded by artifact from metallic hardware. Redemonstrated posterior cervicothoracic spinal instrumentation from the C5-T12 levels. The alignment is normal. Chronic vertebra plana deformity of the T6 vertebral body is identified. Marrow signal intensity is normal without MR evidence of fracture or marrow lesion. The spinal cord is obscured on all sequences and cannot be evaluated. There is likely no spinal cord compression. There are minor degenerative changes of the intervertebral discs. No central canal stenosis is seen. The facets and neural foramina are mostly obscured due to the artifact and not adequately evaluated. No soft tissue fluid collection is seen. Lumbar spine: The alignment is normal. Corresponding to the lucent lesion seen on prior CT scans, there is a lesion measuring up to 1.8 cm in L5 vertebral body with fat component which may a hemangioma is stable. Marrow signal intensity is otherwise normal. The vertebral bodies are normal in height without evidence of compression fractures. The conus medullaris terminates at the level of T12-L1 and the distal spinal cord signal intensity is normal. The anterior and posterior longitudinal ligaments as well as the posterior ligamentous complex appear intact. There is diffuse disc bulge at L3-L4 and L4-L5 levels. No central canal stenosis is seen. The facets demonstrate degenerative changes. No neural foraminal stenosis is seen. No soft tissue abnormality is identified. Procedure Note Alberto Akers MD - 07/19/2018 EXAMINATION: Magnetic resonance imaging (MRI) of the cervical, thoracic, and lumbar spine without contrast HISTORY: fall, weakness, hx of spinal surgery, history of lymphoma since 2012. TECHNIQUE: MRI of the cervical, thoracic, and lumbar spine was performed without contrast according to standard protocol. FINDINGS: Comparison is made with a study from concurrent CT TotalSpine, CT abdomen and pelvis from 04/17/2017, and MRI cervical spine dated on 06/12/2014. Cervical spine: Examination is limited by artifact from metallic hardware and motion. Postoperative appearance of posterior instrumented cervicothoracic spine from the C5-T12 levels is reidentified. There is loss of normal cervical lordosis. Vertebral bodies are normal in height without evidence of compression fractures. Marrow signal intensity is normal. The craniocervical junction and visualized portions of the posterior fossa appear normal. The spinal cord appears normal. The anterior andposterior longitudinal ligaments as well as the posterior ligamentous complexappear intact. In conjunction with the findings of the concurrently obtained CT scan, there is no central canal stenosis. There are varying degrees of mild facet osteoarthritis at C5-C6, C6-C7 and C7-T1. There are varyingdegrees of mild uncovertebral joint osteoarthritis at C5-C6, C6-C7, and C7-T1with the same degree of neural foraminal stenosis at these levels. Normalflow voids are identified in the vertebral arteries. Thoracic spine: Examination is significantly degraded by artifact from metallichardware. Redemonstrated posterior cervicothoracic spinal instrumentation from the C5-T12 levels. The alignment is normal. Chronic vertebra plana deformity of the T6 vertebral body is identified. Marrow signal intensity isnormal without MR evidence of fracture or marrow lesion. The spinal cord is obscured on all sequences and cannot be evaluated. There is likely no spinal cord compression. There are minor degenerative changes of the intervertebral discs. No central canal stenosis is seen. The facets and neural foramina aremostly obscured due to the artifact and not adequately evaluated. No softtissue fluid collection is seen. Lumbar spine: The alignment is normal. Corresponding to the lucent lesion seen onprior CT scans, there is a lesion measuring up to 1.8 cm in L5 vertebral body with fat component which may a hemangioma is stable. Marrow signal intensity is otherwise normal. The vertebral bodies are normal in height without evidence of compression fractures. The conus medullaristerminates at the level of T12-L1 and the distal spinal cord signal intensity is normal. The anterior and posterior longitudinal ligaments as well as the posterior ligamentous complex appear intact. There is diffuse disc bulge at L3-L4 and L4-L5 levels. No central canal stenosis is seen. The facets demonstrate degenerative changes. No neural foraminal stenosis is seen. No soft tissue abnormality is identified. IMPRESSION: 1.Postoperative appearance of posterior instrumented cervicothoracicspine from the C5-T12 levels. 2.Examination degraded by metal artifact. Within this limitation, no evidence of acute fracture or subluxation. No evidence of cord compression. IDr. ALBERTO have personally reviewed and interpreted this examination/study. This report was electronically signed by ALBERTO AKERS on 07/19/2018 9:36 AM . Helena Mcfadden DO MR ORDERABLES * XR CERVICAL SPINE 4 OR 5VW (11/10/2017 2:07 PM CDT) Only the most recent of2 resultswithin the time period is included. Anatomical Region Laterality Modality Spine Radiographic Jonna ging 11/10/2017 4:19 PM CDT Impressions 11/10/2017 4:46 PM CDT IMPRESSION: Unchanged partially imaged cervical spinal fusion extending from the level of C5 into the thoracic spine. No radiographic evidence of cervical spine instability with flexion or extension. Dictated by Colin Nick MD (transporter radiology). Dr. EMIL Muller MD have personally reviewed and interpreted this examination/study. This report was electronically signed by EMIL CHUNG MD ??on 11/10/2017 4:46 PM . Narrative 11/10/2017 4:46 PM CDT EXAMINATION: XR CERVICAL SPINE 4 OR 5VW HISTORY: M25.512: Pain in joint of left shoulder COMPARISON: Comparison is made with a cervical spine radiograph dated 06/17/2016. FINDINGS: Posterior spinal fusion hardware extending from C5 through the visualized thoracic spine is redemonstrated. The imaged portions of the hardware appear intact. A posterior wire is again seen. The alignment appears normal without evidence of cervical spine instability in flexion or extension views. No acute fracture or compression deformity is identified. Degenerative disc disease at C5-6 and C6-7 has not significantly progressed compared to prior examination. The prevertebral soft tissues are normal. Bone density and texture are normal. Procedure Note Emil Chung MD - 11/10/2017 EXAMINATION: XR CERVICAL SPINE 4 OR 5VW HISTORY: M25.512: Pain in joint of left shoulder COMPARISON: Comparison is made with a cervical spine radiograph dated 06/17/2016. FINDINGS: Posterior spinal fusion hardware extending from C5 through thevisualized thoracic spine is redemonstrated. The imaged portions of the hardware appear intact. A posterior wire is again seen. The alignment appears normal without evidence of cervical spine instability in flexion or extension views. No acute fracture or compression deformity isidentified. Degenerative disc disease at C5-6 and C6-7 has not significantly progressed compared to prior examination. The prevertebral soft tissues are normal. Bone density and texture are normal. IMPRESSION: Unchanged partially imaged cervical spinal fusion extending from thelevel of C5 into the thoracic spine. No radiographic evidence of cervical spine instability with flexion or extension. Dictated by Colin Nick MD (transporter radiology). I, Dr. EMIL CHUNG MD have personally reviewed and interpreted this examination/study. This report was electronically signed by EMIL CHUNG MD on11/10/2017 4:46 PM . Umesh Brooks MD DIAGNOSTIC IMAGIN G ORDERABLES * XR SHOULDER LEFT 2VW OR MORE (10/20/2017 11:50 AM CDT) Only the most recent of2 resultswithin the time period is included. Anatomical Region Laterality Modality Upper Extremity Other Impressions 10/20/2017 12:42 PM CDT IMPRESSION: No acute fracture or dislocation identified. No significant arthritis. Dictated by Roberto Carlos Valencia MD (transporter radiology). Dr. GREG Muller have personally reviewed and interpreted this examination/study. This report was electronically signed by GREG MELCHOR ??on 10/20/2017 12:42 PM . Narrative 10/20/2017 12:42 PM CDT EXAMINATION: XR SHOULDER LEFT 2 VW MIN HISTORY: pain COMPARISON: Comparison is made with a study from 11/06/2015 FINDINGS: The osseous structures are intact without acute fracture. The glenohumeral and acromioclavicular joints are in anatomic alignment. There is no significant arthritis. Bone density and texture are normal. The left hemidiaphragm is again noted to be elevated. Spinal fusion instrumentation is partially imaged. Procedure Note Greg Melchor DO - 11/03/2017 EXAMINATION: XR SHOULDER LEFT 2 VW MIN HISTORY: pain COMPARISON: Comparison is made with a study from 11/06/2015 FINDINGS: The osseous structures are intact without acute fracture. The glenohumeraland acromioclavicular joints are in anatomic alignment. There is nosignificant arthritis. Bone density and texture are normal. The lefthemidiaphragm is again noted to be elevated. Spinal fusion instrumentation is partially imaged. IMPRESSION IMPRESSION: No acute fracture or dislocation identified. No significant arthritis. Dictated by Roberto Carlos Valencia MD (transporter radiology). Dr. GREG Muller have personally reviewed and interpreted thisexamination/study. This report was electronically signed by GREG MELCHOR on 10/20/201712:42 PM . Wai Lowry MD DIAGNOSTIC IMAGING O RDERABLES * COMPLETE PFT W/WO BRONCHODILATOR (08/06/2017 3:16 PM SENIOR CLIENT ADVISOR) Impressions [facility] - 08/06/2017 3:16 PM SENIOR CLIENT ADVISOR [facility] DEPARTMENT OF PULMONARY, CRITICAL CARE, AND SLEEP MEDICINE PULMONARY FUNCTION TESTS Lakeisha Alejandra 46 y.o. BMI 36.7 08/06/2017 INTERPRETATION Please see technologist's comments mentioned above. SPIROMETRY: ??FEV1/FVC ratio is normal . ?FEV1 is normal. ?Forced vital capacity is normal. Inspection of the patient's flow-volume loops shows normal configuration of the inspiratory and expiratory limbs. LUNG VOLUMES: Lung volumes by body plethysmography are within normal limits. DLCO: Diffusing capacity unadjusted for Hb and COHb is within normal limits. AIRWAY RESISTANCE: The airway resistance and the specific conductance are normal. IMPRESSION: 1. Normal Pulmonary Function Test. Compared to 03/11/2015, no significant change has occurred Ayaan Hope MD (Fellow) Division of Pulmonary, Critical Care, & Sleep Medicine [facility] I have reviewed this study and agree with the interpretation by the Instructional Technology Director. Manjinder Costa M.D. Vehicle Technician of Internal Medicine Division of Pulmonary, Critical Care and Sleep Medicine [facility] Narrative Procedure Note Provider, MD Alexis - 01/07/2018 IMPRESSION [facility] DEPARTMENT OF PULMONARY, CRITICAL CARE, AND SLEEP MEDICINE PULMONARY FUNCTION TESTS Lakeisha Michaelsrachael 46 y.o. BMI 36.7 08/06/2017 INTERPRETATION Please see technologist's comments mentioned above. SPIROMETRY: FEV1/FVC ratio is normal . FEV1 is normal. Forced vital capacity is normal. Inspection of the patient's flow-volume loops shows normal configurationof the inspiratory and expiratory limbs. LUNG VOLUMES: Lung volumes by body plethysmography are within normallimits. DLCO: Diffusing capacity unadjusted for Hb and COHb is within normallimits. AIRWAY RESISTANCE: The airway resistance and the specific conductance arenormal. IMPRESSION: 1. Normal Pulmonary Function Test. Compared to 03/11/2015, no significant change has occurred Ayaan Hope MD (Fellow) Division of Pulmonary, Critical Care, & Sleep Medicine [facility] I have reviewed this study and agree with the interpretation by thePulmonary Fellow. Manjinder Costa M.D. Vehicle Technician of Internal Medicine Division of Pulmonary, Critical Care and Sleep Medicine [facility] Christweston [facility]SE[facility] ORDERABLES [facility] * (ABNORMAL) DRUG ABUSE PANEL 10-20+ETHANOL URINE NO CONFIRM (04/19/2017 11:33 AM CDT) Only the most recent of3 resultswithin the time period is included. Amphetamines Screen Urine Negative Negative : < 1000 ng/mL [facility] Barbiturates Screen Urine Negative Negative : < 200 ng/mL [facility] Benzodiazepine Screen Urine Positive(A) Negative : < 200 ng/mL [facility] Comment: Positive urine benzodiazepine screening results should be confirmed by another generally accepted non-immunological method such as gas chromatography or mass spectrometry. ? Opiates Urine Positive(A) Negative : < 300 ng/mL [facility] Comment: Positive urine opiate screening results should be confirmed by another generally accepted non-immunological method such as gas chromatography or mass spectrometry. ? Cocaine Metabolites Urine Negative Negative : < 300 ng/mL [facility] Phencyclidine Screen Urine Negative Negative : < 25 ng/ml [facility] Cannabinoids Screen Urine Positive(A) Negative : <50 ng/mL [facility] Comment: Positive urine cannabinoids (THC) screening results should be confirmed by another generally accepted non-immunological method such as gas chromatography or mass spectrometry. ? Methadone Screen Urine Negative Negative : < 300 ng/mL [facility] Urine specimen (specimen) 04/19/2017 11:33 AM CDT 04/19/2017 11:33 AM CDT Narrative [facility] - 04/19/2017 11:52 AM CDT The Urine Toxicology Screening Panel does not screen for Propoxyphene, Meprobamate, Carisoprodol, Trazodone, zlpj-njp-evsoped medications and/or volatiles (Acetone, Isopropanol, Methanol or Ethylene Glycol). Ethanol, Salicylate, Acetaminophen, Tricyclic Antidepressants and several therapeutic drugs may be individually assayed in serum or plasma specimen. Toxicology testing by the [facility] is an aid to medical diagnosis and treatment of patients. No documented chain of custody was maintained. Results are intended to be used for clinical purposes only. ? Kain Wellington MD LAB - URINE CHEMISTR Y ORDERABLES [facility] [address] [place] [address], [facility] [phone] * (ABNORMAL) URINALYSIS REFLEX TO MICROSCOPIC NO CULTURE (04/19/2017 11:31 AM CDT) Only the most recent of11 resultswithin the time period is included. Color UA Yellow Straw, Yellow, Colorless, Light Yellow [facility] Clarity UA Clear Clear [facility] Specific Matthews UA 1.010 1.001 - 1.030 [facility] pH UA 7.5 5.0 - 8.0 [facility] Protein UA Negative <=20 mg/dL [facility] Glucose UA Negative Negative mg/dL [facility] Ketone UA 40(A) Negative mg/dL [facility] Bilirubin UA Negative Negative mg/dL [facility] Blood UA Trace(A) Negative [facility] Nitrite UA Negative Negative [facility] Leukocyte Esterase Negative Negative [facility] Urobilinogen UA <2.0 <2.0 mg/dL [facility] RBC UA 5 0 - 8 /HPF [facility] WBC UA 1 0 - 2 /HPF [facility] Squamous Epithelial Cells UA 1 0 - 1 /HPF [facility] Mucus UA Few(A) None /LPF [facility] Hyaline Casts UA 2 0 - 2 /LPF [facility] Urine specimen (specimen) 04/19/2017 11:31 AM CDT 04/19/2017 11:33 AM CDT Kain Wellington MD LAB - URINALYSIS ORD ERABLES Performing Organization Address City/[facility]/ZIP Co de Phone Number [address] [phone] * LIPASE BLOOD (04/19/2017 11:03 AM CDT) Only the most recent of2 resultswithin the time period is included. Pathologist [facility] Lipase 10 8 - 78 Units/L [facility] Blood specimen (specimen) BLOOD SPECIMEN / Unknown 04/19/2017 11:03 AM CDT 04/19/2017 11:10 AM CDT Kain Wellington MD LAB - CHEMISTRY ORDE RABLES Performing Organization Address [facility]/ZIP Co de Phone Number [address] [phone] * (ABNORMAL) BASIC METABOLIC PANEL (CALCIUM TOTAL) (04/18/2017 3:51 AM CDT) Only the most recent of50 resultswithin the time period is included. BUN 5(L) 7 - 26 mg/dL [facility] Creatinine 0.6 0.6 - 1.2 mg/dL [facility] Sodium 142 136 - 145 mmol/L [facility] Potassium 3.3(L) 3.5 - 4.5 mmol/L [facility] Chloride 109(H) 98 - 107 mmol/L [facility] CO2 24 22 - 29 mmol/L [facility] Glucose 96 70 - 115 mg/dL [facility] Calcium 8.1(L) 8.4 - 10.2 mg/dL [facility] Anion Gap 12 8 - 18 [facility] BUN/Creatinine Ratio 8 7 - 23 [facility] Osmolality Calculated 291 270 - 300 mOsm/kg [facility] eGFR >60 >60 mL/min/1.7 3 m2 [facility] Blood specimen (specimen) BLOOD SPECIMEN / Unknown 04/18/2017 3:51 AM CDT 04/18/2017 4:12 AM CDT aYnelis Alas MD LAB - CHEMISTRY [facility] Performing Organization Address City/[facility]/ZIP Co de Phone Number [address] [phone] * MAGNESIUM BLOOD (04/18/2017 3:51 AM CDT) Only the most recent of82 resultswithin the time period is included. Magnesium 1.8 1.6 - 2.6 mg/dL [facility] Blood specimen (specimen) BLOOD SPECIMEN / Unknown 04/18/2017 3:51 AM CDT 04/18/2017 4:12 AM CDT Yanelis Alas MD LAB - CHEMISTRY [facility] Performing Organization Address [facility] Co de Phone Number [address] [phone] * HEPATITIS B SURFACE ANTIGEN W RFLX CONFIRMATION (04/18/2017 3:51 AM CDT) Only the most recent of2 resultswithin the time period is included. Hepatitis B Virus Surface Antigen Non-reacti ve Non-reacti ve [facility] Blood specimen (specimen) BLOOD SPECIMEN / Unknown 04/18/2017 3:51 AM CDT 04/18/2017 4:16 AM CDT Yanelis Alas MD LAB - CHEMISTRY [facility] Performing Organization Address [facility] [place] [address], [facility] [phone] * T4 FREE (04/18/2017 3:51 AM CDT) Only the most recent of2 resultswithin the time period is included. Pathologist [facility] T4 Free 0.9 0.7 - 1.5 ng/dL [facility] Blood specimen (specimen) BLOOD SPECIMEN / Unknown 04/18/2017 3:51 AM CDT 04/18/2017 4:12 AM CDT Yanelis Alas MD LAB - CHEMISTRY [facility] Performing Organization Address City/[facility]/ZIP Co de Phone Number [address] [phone] * CORTISOL BLOOD AM (04/18/2017 3:51 AM CDT) [facility] Cortisol AM 5.0 3.7 - 19.4 mcg/dL [facility] Blood specimen (specimen) BLOOD SPECIMEN / Unknown 04/18/2017 3:51 AM CDT 04/18/2017 4:12 AM CDT Yanelis Alas MD LAB - CHEMISTRY [facility] Performing Organization Address [facility] Co de Phone Number [address] [phone] * HEPATITIS C AB SCREEN RFLX PCR QUANT (04/18/2017 3:51 AM CDT) [facility] Hepatitis C Antibody Non-react teena Non-reac tive [facility] Comment: Hepatitis C Antibody screen indicates [...] LAB - CHEMISTRY [facility] Performing Organization Address [facility]/ZIP Co de Phone Number [address] [phone] * EKG 12-LEAD (04/18/2017 12:00 AM CDT) Only the most recent of9 resultswithin the time period is included. EKG [facility] Comment: Exam Date/Time: ?? Apr 18 2017 03:11:58 Test Reason : bradycardia Blood Pressure : / mmHG Vent. Rate : 051 BPM ? Atrial Rate : 051 BPM ?? P-R Int : 144 ms ?QRS Dur : 088 ms ?QT Int : 478 ms ? P-R-T Axes : 053 054 061 degrees ?? QTc Int : 440 ms Sinus bradycardia with sinus arrhythmia Otherwise normal ECG When compared with ECG of 17-APR-2017 20:14, Sinus bradycardia has replaced Sinus rhythm Confirmed by Andie Watkins LNanda ([id number]), television news video editor [employer]ERT[employer] LAW ([id number]) on 04/27/2017 12:09:34 PM Referred By: REFERRING NO ? Confirmed By:David Watkins M.D. 04/18/2017 Yanelis Alas MD ECG ORDERABLES [facility] * CT ABDOMEN PELVIS W CONTRAST (04/17/2017 10:28 PM CDT) Only the most recent of2 resultswithin the time period is included. Anatomical Region Laterality Modality Abdomen, Pelvis Other Impressions 04/18/2017 9:08 AM CDT IMPRESSION: 1. No acute process identified in the abdomen or pelvis. 2. Cholelithiasis without evidence of cholecystitis. Preliminary findings were discussed with Dr. Holt by Dr. Nixon on 04/17/2017 at 11:30 PM. Dictated by Frank Nixon MD (transporter radiology). I, Dr. LEOBARDO LE M.D. have personally reviewed and interpreted this examination/study. This report was electronically signed by LEOBARDO LE M.D. ??on 04/18/2017 9:08 AM . Narrative 04/18/2017 9:08 AM CDT EXAMINATION: Computed tomography (CT) of the abdomen and pelvis with contrast HISTORY: Hodgkin's lymphoma status post chemotherapy, abdominal pain TECHNIQUE: CT of the abdomen and pelvis was performed following the uneventful administration of 100 mL of Omnipaque 350 intravenous contrast according to standard protocol. COMPARISON: Comparison is made with CT chest, abdomen, and pelvis from 02/12/[address] from 07/16/2016. FINDINGS: The aorta is normal in course and caliber. There is mild right right lower lobe and lingular atelectasis in the visible lung bases. The heart size is normal without pericardial effusion. The liver enhances homogenously. Multiple gallstones are seen in the gallbladder. Otherwise the gallbladder is normal without evidence of wall thickening or pericholecystic fluid. The intrahepatic and extrahepatic bile ducts are nondilated. The spleen enhances homogenously without focal lesion. The pancreas and adrenal glands are normal. The kidneys enhance symmetrically. There is no evidence of renal calculus or hydronephrosis. The distal esophagus and stomach appear normal. The small bowel and large bowel are normal in caliber without evidence of wall thickening or obstruction. The appendix is not seen; however, no inflammatory changes are seen in the right lower quadrant. No free air or free fluid is identified within the abdomen. There is no abdominal lymphadenopathy. The urinary bladder is distended with fluid and appears normal. An intrauterine device is seen and appears to be within the endometrial cavity. The uterus is normal in appearance. No free fluid is seen within the pelvis. There is no pelvic lymphadenopathy. A lytic lesion within the right aspect of the partially sacralized L5 vertebral body is unchanged from prior PET/CT where it was not FDG avid and decreased in size when compared to the prior CT from 02/12/2013, and may represent a hemangioma. Bone windows otherwise demonstrate no suspicious lytic or blastic lesions. Postoperative changes of posterior spinal fusion are seen extending to the level of T12 inferiorly on the right and T11 inferiorly on the left. The superior extent of the posterior spinal fusion is beyond the field of view. Procedure Note Candy Le MD - 10/29/2017 EXAMINATION: Computed tomography (CT) of the abdomen and pelvis withcontrast HISTORY: Hodgkin's lymphoma status post chemotherapy, abdominal pain TECHNIQUE: CT of the abdomen and pelvis was performed following theuneventful administration of 100 mL of Omnipaque 350 intravenous contrastaccording to standard protocol. COMPARISON: Comparison is made with CT chest, abdomen, and pelvis from02/12/[address] from 07/16/2016. FINDINGS: The aorta is normal in course and caliber. There is mild right right lower lobe and lingular atelectasis in thevisible lung bases. The heart size is normal without pericardialeffusion. The liver enhances homogenously. Multiple gallstones are seen in thegallbladder. Otherwise the gallbladder is normal without evidence of wallthickening or pericholecystic fluid. The intrahepatic and extrahepaticbile ducts are nondilated. The spleen enhances homogenously without focal lesion. The pancreas and adrenalglands are normal. The kidneys enhance symmetrically. There is no evidenceof renal calculus or hydronephrosis. The distal esophagus and stomach appear normal. The small bowel and largebowel are normal in caliber without evidence of wall thickening orobstruction. The appendix is not seen; however, no inflammatory changesare seen in the right lower quadrant. No free air or free fluid is identified within the abdomen. There is noabdominal lymphadenopathy. The urinary bladder is distended with fluid and appears normal. Anintrauterine device is seen and appears to be within the endometrialcavity. The uterus is normal in appearance. No free fluid is seen withinthe pelvis. There is no pelvic lymphadenopathy. A lytic lesion within the right aspect of the partially sacralized [id number] body is unchanged from prior PET/CT where it was not FDG avidand decreased in size when compared to the prior CT from 02/12/2013, andmay represent a hemangioma. Bone windows otherwise demonstrate no suspicious lytic or blastic lesions.Postoperative changes of posterior spinal fusion are seen extending to thelevel of T12 inferiorly on the right and T11 inferiorly on the left. Thesuperior extent of the posterior spinal fusion is beyond the field of view. IMPRESSION IMPRESSION: 1. No acute process identified in the abdomen or pelvis. 2. Cholelithiasis without evidence of cholecystitis. Preliminary findings were discussed with Dr. Holt by Dr. Nixon on04/17/2017 at 11:30 PM. Dictated by Frank Nixon MD (transporter radiology). I, Dr. LEOBARDO LE M.D. have personally reviewed and interpreted thisexamination/study. This report was electronically signed by LEOBARDO LE M.D. on04/18/2017 9:08 AM . Amparo Tompkins MD CT ORDERABLES * GLUCOSE - POINT OF CARE (AMB) U (04/17/2017 8:50 PM CDT) Only the most recent of26 resultswithin the time period is included. Amparo Tompkins MD LAB - POINT OF CARE ORDERABLES [facility] * HCG URINE QUALITATIVE - POCT (IP) [facility] (04/17/2017 8:50 PM CDT) Test Urine neg [facility] Urine specimen (specimen) 04/17/2017 8:50 PM CDT Amparo Tompkins MD LAB - POINT OF CARE ORDERABLES Performing Organization Address [facility] Co de Phone Number [facility] * XR CHEST 1VW PORTABLE (04/17/2017 8:25 PM CDT) Only the most recent of10 resultswithin the time period is included. Anatomical Region Laterality Modality Chest Other Impressions 04/18/2017 12:29 PM CDT IMPRESSION: Low lung volumes with bibasilar opacities, likely representing atelectasis and/or airspace disease with possible small effusions. Dictated by Colin Nick MD (transporter radiology). I, Dr. LEOBARDO LE M.D. have personally reviewed and interpreted this examination/study. This report was electronically signed by LEOBARDO LE M.D. ??on 04/18/2017 12:29 PM . Narrative 04/18/2017 12:29 PM CDT EXAMINATION: PX CHEST 1 VW HISTORY: near syncope COMPARISON: Comparison is made with a study from 02/18/2017. FINDINGS: The lung volumes are low. Bibasilar opacities may represent atelectasis and/or airspace disease. Small pleural effusions are suspected. No pneumothorax is seen. The cardiomediastinal silhouette is normal. Spinal fusion hardware is again partially imaged. Procedure Note Candy Le MD - 10/29/2017 EXAMINATION: PX CHEST 1 VW HISTORY: near syncope COMPARISON: Comparison is made with a study from 02/18/2017. FINDINGS: The lung volumes are low. Bibasilar opacities may represent atelectasisand/or airspace disease. Small pleural effusions are suspected. Nopneumothorax is seen. The cardiomediastinal silhouette is normal. Spinalfusion hardware is again partially imaged. IMPRESSION IMPRESSION: Low lung volumes with bibasilar opacities, likely representing atelectasisand/or airspace disease with possible small effusions. Dictated by Colin Nick MD (transporter radiology). I, Dr. LEOBARDO LE M.D. have personally reviewed and interpreted thisexamination/study. This report was electronically signed by LEOBARDO LE M.D. on04/18/2017 12:29 PM . Amparo Tompkins MD DIAGNOSTIC IMAGING O RDERABLES * (ABNORMAL) GLUCOSE ACCUCHECK (04/17/2017 8:13 PM CDT) Only the most recent of9 resultswithin the time period is included. Glucose, Fingerstick 118(H) 70-115mg/d L mg/dL [facility] ([facility]) Comment:Head Porter Baggage: JANE ALVARADO 04/17/2017 8:13 PM CDT Dylan Pollack MD LAB - CHEMISTRY CHRISTOPHER DE LA GARZA [facility] ([facility]) * LACTIC ACID BLOOD (04/17/2017 8:09 PM CDT) Lactic Acid-Stat 1.1 0.5 - 2.0 mmol/L [facility] Blood specimen (specimen) BLOOD SPECIMEN / Unknown 04/17/2017 8:09 PM CDT 04/17/2017 8:17 PM CDT Amparo Tompkins MD LAB - CHEMISTRY CHRISTOPHER DE LA GARZA [facility] [address] [phone] * TROPONIN I (04/17/2017 8:09 PM CDT) Only the most recent of4 resultswithin the time period is included. [facility] Troponin I <0.010 <0.032 ng/mL [facility] Blood specimen (specimen) BLOOD SPECIMEN / Unknown 04/17/2017 8:09 PM CDT 04/17/2017 8:17 PM CDT Amparo Tompkins MD LAB - CHEMISTRY CHRISOTPHER DE LA GARZA [facility] [address] [phone] * (ABNORMAL) D-DIMER (02/18/2017 9:22 PM CDT) [facility] D-Dimer Quantitative 0.67(H) <=0.50 mcg/mL FEU [facility] Comment: In the absence of clinical symptoms, a value less than or equal to 0.5 mcg/mL FEU significantly decreases the probability of PE/DVT (negative predictive value >95%). 1 mcg/mL FEU = 1 Fibrinogen Equivalent Unit (approximates 0.5 mcg/ml of D- Dimer). ?ISTH DIAGNOSTIC SCORING SYSTEM FOR DIC ?Score ?0 ? 1 ? 2 ?3 ?? Platelet Count(x10^3/uL) ?> 100 ?? < 100 ?? < 50 ?N/A PT Prolongation above ? upper limit of normal ?0-3 ? 3-6 ? > 6 ?N/A range (seconds) ? Fibrinogen (mg/dL) ?> 100 ?? < 100 ?N/A ?N/A D-Dimer (mcg/mL FEU) ? < 0.50 ?N/A ? 0.50-5.0 ??> 5 Calculate Cumulative Score: > or = 5 :compatible with overt DIC ? < 5 :suggestive for non-overt DIC N/A = Non applicable Reference: Br. J. Haematol. 145:24-33,2009. Blood specimen (specimen) BLOOD SPECIMEN / Unknown 02/18/2017 9:22 PM CDT 02/18/2017 9:33 PM CDT Saul Decker MD LAB - COAGULATION OR DERABLES Performing Organization Address City/State/[facility] Co de Phone Number [address] [phone] * XR CHEST 1VW (02/18/2017 4:46 PM CDT) Anatomical Region Laterality Modality Chest Other Impressions 02/19/2017 8:18 AM CDT Impression: Minimal right middle lobe atelectasis and/or airspace disease. Report dictated by Tisha Godinez MD (resident). I, Dr. YVES MARX M.D. have personally reviewed and interpreted this examination/study. This report was electronically signed by YVES MARX M.D. ??on 02/19/2017 8:18 AM . Narrative 02/19/2017 8:18 AM CDT Exam: XR CHEST 1 VW Exam Date: 02/18/2017 4:46 PM History: chest pressure Comparison: Radiograph from 02/19/2015 Findings: Minimal opacities obscuring the right heart border likely represent right middle lobe atelectasis and/or airspace disease. No pleural effusion or pneumothorax is identified. The left lung is clear. The cardiomediastinal silhouette is normal. Spinal fusion hardware is partially imaged. Procedure Note Yves Marx MD - 10/29/2017 Exam: XR CHEST 1 VW Exam Date: 02/18/2017 4:46 PM History: chest pressure Comparison: Radiograph from 02/19/2015 Findings: Minimal opacities obscuring the right heart border likely represent rightmiddle lobe atelectasis and/or airspace disease. No pleural effusion orpneumothorax is identified. The left lung is clear. The cardiomediastinalsilhouette is normal. Spinal fusion hardware is partially imaged. IMPRESSION Impression: Minimal right middle lobe atelectasis and/or airspace disease. Report dictated by Tisha Godinez MD (resident). I, Dr. YVES MARX M.D. have personally reviewed and interpreted thisexamination/study. This report was electronically signed by YVES MARX M.D. on 02/19/20178:18 AM . Dylan Pollack MD DIAGNOSTIC IMAGING O RDERABLES * XR KNEE RIGHT 4VW OR MORE (09/09/2016 10:34 AM SENIOR CLIENT ADVISOR) Only the most recent of2 resultswithin the time period is included. Anatomical Region Laterality Modality Lower Extremity Other Impressions 09/09/2016 12:01 PM SENIOR CLIENT ADVISOR Impression: Mild osteoarthritis of both knees. This report was electronically signed by ALMAS GREEN M.D. ??on 09/09/2016 12:01 PM . Narrative 09/09/2016 12:01 PM SENIOR CLIENT ADVISOR Examination: 1. Left knee minimum 4 views 2. Right knee minimum 4 views History: Bilateral knee pain Findings: 4 views of the right knee were performed with comparison made to 07/10/2015. Alignment of the right knee is normal. There is no acute fracture or right knee joint effusion. There is mild tricompartmental right knee osteoarthritis. 4 views of the left knee were performed. Alignment of the left knee is normal. There is no left knee joint effusion or acute fracture. There is mild tricompartmental left knee osteoarthritis. Procedure Note Almas Green MD - 10/29/2017 Examination: 1. Left knee minimum 4 views 2. Right knee minimum 4 views History: Bilateral knee pain Findings: 4 views of the right knee were performed with comparison made to07/10/2015. Alignment of the right knee is normal. There is no acutefracture or right knee joint effusion. There is mild tricompartmentalright knee osteoarthritis. 4 views of the left knee were performed. Alignment of the left knee isnormal. There is no left knee joint effusion or acute fracture. There ismild tricompartmental left knee osteoarthritis. IMPRESSION Impression: Mild osteoarthritis of both knees. This report was electronically signed by ALMAS GREEN M.D. on 09/09/201612:01 PM . Sun E Mike PA-C DIAGNOSTIC IMAGING O RDERABLES * XR THORACIC SPINE 2VW (07/12/2016 3:21 PM SENIOR CLIENT ADVISOR) Only the most recent of15 resultswithin the time period is included. Anatomical Region Laterality Modality Spine Other Impressions 07/13/2016 8:30 AM SENIOR CLIENT ADVISOR IMPRESSION: The patient is status post instrumented posterior spinal fusion from C5 through T12 with paired vertical rods, pedicle screws, and a cerclage wire. The instrumentation appears intact without evidence of failure. A T6 compression fracture is unchanged. No new fractures are identified. The spinal alignment is normal. Dictated by Peter Pineda MD (transporter radiology). Dr. YVES Muller M.D. have personally reviewed and interpreted this examination/study. This report was electronically signed by YVES MARX M.D. ??on 07/13/2016 8:30 AM . Narrative 07/13/2016 8:30 AM SENIOR CLIENT ADVISOR EXAMINATION: XR SPINE THORACIC 2 VWS HISTORY: History of spinal fusion for T6 burst fracture COMPARISON: Comparison is made with a study from 06/17/2016. FINDINGS/ Procedure Note Yves Marx MD - 10/30/2017 EXAMINATION: XR SPINE THORACIC 2 VWS HISTORY: History of spinal fusion for T6 burst fracture COMPARISON: Comparison is made with a study from 06/17/2016. FINDINGS/ IMPRESSION IMPRESSION: The patient is status post instrumented posterior spinal fusion from G3bxqwmop T12 with paired vertical rods, pedicle screws, and a cerclagewire. The instrumentation appears intact without evidence of failure. A [id number] fracture is unchanged. No new fractures are identified. The spinal alignment is normal. Dictated by Peter Pineda MD (transporter radiology). Dr. YVES Muller M.D. have personally reviewed and interpreted thisexamination/study. This report was electronically signed by YVES MARX M.D. on 07/13/20168:30 AM . Bib Arenas MD DIAGNOSTIC IMAGING O RDERABLES * ECHO W DOPPLER AND COLOR FLOW (01/10/2016 12:00 AM CDT) Only the most recent of2 resultswithin the time period is included. Anatomical Region Laterality Modality Other 01/10/2016 Casimiro Loyola MD ECHOCARDIOGRAPH Y RADIANT * STREP PNEUMO ANTIBODY IGG 23 SEROTYPES PANEL (12/09/2015 3:14 PM CDT) Only the most recent of2 resultswithin the time period is included. Pneumo Antibody Type 1 0.72 ug/mL [facility] (BEAKER) Pneumo Antibody Type 2 1.03 ug/mL [facility] (BEAK[facility]) Pneumo Antibody Type 3 2.24 ug/mL [facility] (BEAK[facility]) Pneumo Antibody Type 4 0.29 ug/mL [facility] (BEAK[facility]) Pneumo Antibody Type 5 1.77 ug/mL [facility] (BEAKER) Pneumo Antibody Type 6B 3.40 ug/mL [facility] (BEAKER) Pneumo Antibody Type 7F 0.44 ug/mL [facility] (BEAKER) Pneumo Antibody Type 8 2.39 ug/mL [facility] (BEAKER) Pneumo Antibody Type 9N 1.19 ug/mL [facility] (BEAKER) Pneumo Antibody Type 9V 1.14 ug/mL [facility] (BEAKER) Pneumo Antibody Type 10A 1.00 ug/mL [facility] (BEAK[facility]) Pneumo Antibody Type 11A 2.29 ug/mL [facility] (BEAKER) Pneumo Antibody Type 12F 0.56 ug/mL [facility] (BEAKER) Pneumo Antibody Type 14 6.47 ug/mL [facility] (BEAKER) Pneumo Antibody Type 15B 0.47 ug/mL [facility] (BEAKER) Pneumo Antibody Type 17F 3.36 ug/mL [facility] (BEAKER) Pneumo Antibody Type 18C 2.56 ug/mL [facility] (BEAKER) Pneumo Antibody Type 19A 7.72 ug/mL [facility] (BEAKER) Pneumo Antibody Type 19F 21.09 ug/mL [facility] (BEAKER) Pneumo Antibody Type 20 2.12 ug/mL [facility] (BEAKER) Pneumo Antibody Type 22F 1.30 ug/mL [facility] ([employer]) Pneumo Antibody Type 23F 0.40 ug/mL [facility] (BEAKER) Pneumo Antibody Type 33F 0.56 ug/mL [facility] ([facility]) Interpretation Pneumo Serotype See Note [facility] Comment: INTERPRETIVE INFORMATION: Streptococcus pneumoniae Antibodies, IgG A pre- and post-vaccination comparison is required to adequately assess the humoral immune response to Prevnar 7 (P7), Prevnar 13 (P13), and/or Pneumovax 23 (PNX) Streptococcus pneumoniae vaccines. Pre-vaccination samples should be collected prior to vaccine administration. Post-vaccination samples should be obtained at least 4 weeks after immunization. Testing of post-vaccination samples alone will provide only general immune status of the individual to various pneumococcal serotypes. In the case of pure polysaccharide vaccine, indication of immune system competence is further delineated as an adequate response to at least 50 percent of the serotypes in the vaccine challenge for those 2-5 years of age and to at least 70 percent of the serotypes in the vaccine challenge for those 6-65 years of age. Individual immune response may vary based on age, past exposure, immunocompetence, and pneumococcal serotype. Responder Status ? Antibody Ratio Non-Responder . . . . . . . . . . . . . . Less than 2-fold Weak Responder . . . . . . . . . . . . . 2-fold to 4-fold Good Responder . . . . . . . . . . . . . Greater than 4-fold A response to 50-70 percent or more of the serotypes in the vaccine challenge is considered a normal humoral response(1). Antibody concentration greater than 1.0 - 1.3 ug/mL is generally considered long-term protection(2). References: 1. Yashira SHANKS, Sharona JW, Lan X, Prince CRAMER, Lucas WATSON. Multilaboratory assessment of threshold versus fold-change algorithms for minimizing analytical variability in multiplexed pneumococcal IgG measurements. Clin Vaccine Immunol. 2014;21(7):982-8. 2. Yashira SHANKS, Lucas WATSON. Use and Clinical Interpretation of Pneumococcal Antibody Measurements in the Evaluation of Humoral Immune Function. Clin Vaccine Immunol. 2015;22(2):148-152. Test developed and characteristics determined by [employer]. See Compliance Statement B: [email or web address] 12/09/2015 3:14 PM CDT 12/09/2015 3:24 PM CDT Castillo Velásquez MD LAB - CHEMISTRY MELISSAReymundo [facility] Organization Address City/State/ZIP Co de Phone Number [facility] ([place]) * MRI SHOULDER LEFT WO CONTRAST (11/05/2015 11:31 AM CDT) Anatomical Region Laterality Modality Upper Extremity Other Impressions 11/05/2015 4:08 PM CDT Impression: Mildly acromioclavicular joint osteoarthritis with associated small joint effusion. Mild widening of the acromioclavicular joint, which may reflect a chronic sprain. ??No evidence of acute injury. This report has been dictated by Amrita Schuler M.D. (Resident). This report was approved ??by Amrita Schuler ?? on 11/05/2015 3:44 PM . I, Dr. EMIL CHUNG MD have personally reviewed and interpreted this examination/study. This report was electronically signed by EMIL CHUNG MD ??on 11/05/2015 4:08 PM . Narrative 11/05/2015 4:08 PM CDT Examination: Magnetic resonance imaging (MRI) of the left shoulder without contrast History: 44-year-old female with left shoulder and arm pain. Technique: MRI of the left shoulder was performed in multiple planes using multiple pulse sequences without intravenous or intra-articular contrast. Comparison: None available. Findings: The acromioclavicular joint is mildly widened measuring 7 mm, which could reflect the sequela of a chronic sprain. There is no associated marrow edema or surrounding soft tissue edema to suggest recent injury. There is no elevation of the distal clavicle, and the coracoclavicular ligaments are intact. There is mild acromioclavicular joint osteoarthritis with an associated small joint effusion. Glenohumeral alignment is normal. There is no effusion. The glenoid labrum is normal within the limits of this non-arthrographic examination. The glenohumeral articular cartilage is intact. The rotator cuff tendons including the supraspinatus, infraspinatus, subscapularis, and teres minor are normal without tendinosis or tear. The long head of the biceps anchor is intact and the tendon is normal without tendinosis or tear. There is no fluid in the subacromial-subdeltoid bursa. Marrow signal intensity is normal. Muscle bulk is normal. The subcutaneous tissues are normal. Procedure Note Emil Chung MD - 10/30/2017 Examination: Magnetic resonance imaging (MRI) of the left shoulder withoutcontrast History: 44-year-old female with left shoulder and arm pain. Technique: MRI of the left shoulder was performed in multiple planes usingmultiple pulse sequences without intravenous or intra-articularcontrast. Comparison: None available. Findings: The acromioclavicular joint is mildly widened measuring 7 mm, which couldreflect the sequela of a chronic sprain. There is no associated marrowedema or surrounding soft tissue edema to suggest recent injury. There isno elevation of the distal clavicle, and the coracoclavicular ligaments are intact. There is mildacromioclavicular joint osteoarthritis with an associated small jointeffusion. Glenohumeral alignment is normal. There is no effusion. The glenoid labrumis normal within the limits of this non-arthrographic examination. Theglenohumeral articular cartilage is intact. The rotator cuff tendons including the supraspinatus, infraspinatus,subscapularis, and teres minor are normal without tendinosis or tear. The long head of the biceps anchor is intact and the tendon is normalwithout tendinosis or tear. There is no fluid in the subacromial-subdeltoid bursa. Marrow signal intensity is normal. Muscle bulk is normal. The subcutaneoustissues are normal. IMPRESSION Impression: Mildly acromioclavicular joint osteoarthritis with associated small jointeffusion. Mild widening of the acromioclavicular joint, which may reflect a chronicsprain. No evidence of acute injury. This report has been dictated by Amrita Schuler M.D. (Resident). This report was approved by Amrita Schuler on 11/05/2015 3:44 PM . I, Dr. EMIL CHUNG MD have personally reviewed and interpreted thisexamination/study. This report was electronically signed by EMIL CHUNG MD on 11/05/20154:08 PM . Reji Virk MD MR ORDERABLES * FLOW CYTOMETRY [facility] PANEL (10/25/2015 9:19 AM CDT) [facility] Flow Cytometry Specimen: Blood Reference:[id number] Reason for test: Markers: 9 Flow Cytometry Results: Differential ?Result ?Comment WBC COUNT/uL ? 6900 %LYMPHOCYTES ? 28 LYMPH COUNT/uL ?1932 CD4 COUNT/uL ?618 Cell Region A: Lymphocytes Dual Labeled Results % ??Result ?Abs Count (cells/ul) %CD4 & CD45RO ? 55 ?1063 %CD4 & CD45RA ? 65 ?1256 %CD27 & CD19 ? 3 %CD19 & CD27 ? 15 %CD19 & CD27+IgD+ ? 5 %CD19 & CD27+IgD- ? 7 %CD19 & DH74-TqD+ ? 98 Cell Region A: Lymphocytes Surface Marker ?Result (%) ??Abs Count (cells/ul) ?CD3 ? 70 ?1352 ? CD3+CD4+ ? 32 ?618 ? CD3+CD8+ ? 31 ?599 CD4:CD8 RATIO ? 1.03 ? CD19 ? 13 ?251 ? CD27 ? 76 ?1468 ? CD56 ? 8 ? 155 ? sIgD ? 12 ?232 Peripheral Blood Lymphocyte Adult Normal Reference Range (%) except CD4/CD8 CD1 ? 0 ? CD24 ?11-19 CD2 ? 74-94 ? CD25 ?5-17 CD3 ? 54-94 ? CD33 ?0-7 CD4 ? 40-56 ? CD34 ?0-3 CD4/CD8 ? (0.7-2.7) ?? CD38 ?15-55 CD5 ? 57-93 ? CD45 ?97-100 CD7 ? 58-82 ? CD56 ?6-26 CD8 ? 17-45 ? CD57 ?0-26 CD10 ?1-9 ? CD117 ? 0 CD11b ? 14-42 ? CD138 ? 0-1 CD11c ? 4-14 ?IgG ? 0-7 CD13 ?0-4 ? IgM ? 4-16 CD14 ?0-11 ?IgA ? 2-6 CD15 ?0-1 ? IgD ? 3-15 CD16 ?0-23 ?[place] ? 3-12 CD19 ?8-24 ?Lambda ?3-7 CD20 ?7-17 ?HLA-DR ?9-25 CD23 ?2-16 ?TdT ? 0 Test performed at [facility], [address] [place] [address] ??[id number] This test was developed and its performance characteristics determined by [facility]. It has not been cleared by the U.S. Food and Drug Administration. The FDA has determined that such clearance or approval is not necessary. This test is used for clinical purposes. It should not be regarded as investigational or for research. This laboratory is regulated under the Clinical Laboratory Improvement Amendments of 1998 (CLIA) as qualified to perform high complexity clinical testing. By law [place], CD4 lymphocyte counts on patients with HIV infection must be reported by the physician to the [facility] Health authority. [facility] ([place]) Blood specimen (specimen) BLOOD SPECIMEN / Unknown 10/25/2015 9:19 AM CDT 10/25/2015 10:05 AM CDT Castillo Velásquez MD LAB - PATHOLOGY/CYTO LOGY ORDERABLES [facility] ([place]) * TETANUS ANTIBODY (10/25/2015 9:19 AM CDT) Tetanus Antibody IgG 0.57 <0.10 IU/mL [facility] ([place]) Comment: ? Interpretation: ? Non-Protective ?<0.10 ? Protective ? >=0.10 Results for this test are for research purposes only by the assay's fire and safety helper. ??The performance characteristics of this product have not been established. ??Results should not be used as a diagnostic procedure without confirmation of the diagnosis by another medically established diagnostic product or procedure. Blood specimen (specimen) BLOOD SPECIMEN / Unknown 10/25/2015 9:19 AM CDT 10/25/2015 10:05 AM CDT Narrative [facility] ([place]) - 10/29/2015 11:20 AM CDT 0.4 ml Serum, Red-top tube or gel-barrier tube, room temperature. Performed at: ??01 - [address] ??[id number] Marble Cleaner: Kendrick Cardenas MD, Phone: ??[phone] Castillo Velásquez MD LAB - CHEMISTRY CHRISTOPHER DE LA GARZA Performing Organization Address [facility]/State/[facility] Phone Number [facility]) * (ABNORMAL) DIPHTHERIA ANTIBODY (10/25/2015 9:19 AM CDT) Diphtheria Antitoxoid Antibody <0.10(L) <0.10 IU/mL [facility] ([place] Comment: ? Interpretation: ? Non-Protective ?<0.10 ? Protective ? >=0.10 For research use only. Blood specimen (specimen) BLOOD SPECIMEN / Unknown 10/25/2015 9:19 AM CDT 10/25/2015 10:05 AM CDT Narrative [facility] ([place]) - 10/30/2015 1:16 PM CDT 0.5 mL serum red-top tube or gel-barrier tube, Refrigerate Performed at: ??01 - [address] ??[id number] Marble Cleaner: Kendrick Cardenas MD, Phone: ??[phone] Castillo Velásquez MD LAB - CHEMISTRY CHRISTOPHER DE LA GARZA Performing Organization Address [facility] Co de Phone Number [facility] * (ABNORMAL) COMPLEMENT TOTAL (10/25/2015 9:19 AM CDT) Pathologist [facility] Complement Total CH50 >60(H) 42 - 60 U/mL [facility] ([facility]) Blood specimen (specimen) BLOOD SPECIMEN / Unknown 10/25/2015 9:19 AM CDT 10/25/2015 10:05 AM CDT Narrative [facility] ([facility]) - 10/28/2015 3:15 PM CDT 1 mL serum, red-top tube or gel barrier tube, Allow specimen to clot at room temperature for 15 to 30 minutes. Remove serum after centrifugation, and place in plastic transport tube. Transport frozen Performed at: ??01 - [address] ??[id number] Marble Cleaner: Edison Chavez PhD, Phone: ??[phone] Castillo Velásquez MD LAB - CHEMISTRY CHRISTOPHER DE LA GARZA Performing Organization Address City/[facility]/ZIP Co de Phone Number [facility] * IGM BLOOD (10/25/2015 9:19 AM CDT) Only the most recent of2 resultswithin the time period is included. Pathologist [facility] IgM 210 22 - 293 mg/dL [facility] Blood specimen (specimen) BLOOD SPECIMEN / Unknown 10/25/2015 9:19 AM CDT 10/25/2015 10:05 AM CDT Castillo Velásquez MD LAB - CHEMISTRY [place] [address], [facility] [phone] * IGG BLOOD (10/25/2015 9:19 AM CDT) Only the most recent of4 resultswithin the time period is included. IgG 794 540 - 1,822 mg/dL [facility] Blood specimen (specimen) BLOOD SPECIMEN / Unknown 10/25/2015 9:19 AM CDT 10/25/2015 10:05 AM CDT Narrative [facility] - 10/25/2015 10:40 AM CDT 1 mL serum, Red- top tube or gel barrier tube Castillo Velásquez MD LAB - CHEMISTRY CHRISTOPHER DE LA GARZA Performing Organization Address [facility]/[place] [address], [facility] [phone] * IGA BLOOD (10/25/2015 9:19 AM CDT) Only the most recent of2 resultswithin the time period is included. IgA 204 87 - 534 mg/dL [facility] Blood specimen (specimen) BLOOD SPECIMEN / Unknown 10/25/2015 9:19 AM CDT 10/25/2015 10:05 AM CDT Narrative [facility] - 10/25/2015 10:40 AM CDT 1 mL serum, Red-top tube or gel barrier tube, Room temperture Castillo Velásquez MD LAB - CHEMISTRY [place] [address], [facility] [phone] * XR THORACOLUMBAR SPINE 2VW (07/31/2015 10:50 AM SENIOR CLIENT ADVISOR) Anatomical Region Laterality Modality Spine Other Impressions 07/31/2015 4:45 PM SENIOR CLIENT ADVISOR Impression: Unchanged postoperative appearance of instrumented posterior spinal fusion from C5-T12 for a non-retropulsed T6 burst fracture. Report dictated by Yoan Wilson MD (resident). This report was approved ??by Yoan Wilson ?? on 07/31/2015 1:37 PM . I, Dr. ALMAS GREEN M.D. have personally reviewed and interpreted this examination/study. This report was electronically signed by ALMAS GREEN M.D. ??on 07/31/2015 4:45 PM . Narrative 07/31/2015 4:45 PM SENIOR CLIENT ADVISOR Exam: XR SPINE THORACOLUMBAR 2 VWS, XR SPINE CERVICAL 2 OR 3 VIEWS Exam Date: 07/31/2015 10:50 AM History: follow up Comparison: Cervical and thoracic spine radiographs dated 03/26/2015 and thoracic spine radiographs dated 05/08/2015. Findings: Cervical- Bony alignment is normal. The vertebral body heights and intervertebral disc spaces are preserved. ? The prevertebral soft tissues are normal. Thoracolumbar spine- The patient is status post instrumented posterior spinal fusion from C5-T12 consisting of multiple pedicle screws, vertical connecting rods and cerclage wires. The hardware is intact and unchanged in configuration. The alignment is normal. A non-retropulsed T6 burst fracture with approximately 70% height loss is unchanged. The intervertebral disc spaces are maintained. Procedure Note Almas Green MD - 10/30/2017 Exam: XR SPINE THORACOLUMBAR 2 VWS, XR SPINE CERVICAL 2 OR 3 VIEWS Exam Date: 07/31/2015 10:50 AM History: follow up Comparison: Cervical and thoracic spine radiographs dated 03/26/2015 andthoracic spine radiographs dated 05/08/2015. Findings: Cervical- Bony alignment is normal. The vertebral body heights and intervertebraldisc spaces are preserved. The prevertebral soft tissues are normal. Thoracolumbar spine- The patient is status post instrumented posterior spinal fusion fromC5-T12 consisting of multiple pedicle screws, vertical connecting rods andcerclage wires. The hardware is intact and unchanged in configuration. Thealignment is normal. A non-retropulsed T6 burst fracture with approximately 70% height loss isunchanged. The intervertebral disc spaces are maintained. IMPRESSION Impression: Unchanged postoperative appearance of instrumented posterior spinal fusionfrom C5-T12 for a non-retropulsed T6 burst fracture. Report dictated by Yona Wilson MD (resident). This report was approved by Yoan Wilson on 07/31/2015 1:37 PM . I, Dr. ALMAS GREEN M.D. have personally reviewed and interpreted thisexamination/study. This report was electronically signed by ALMAS GREEN M.D. on07/31/2015 4:45 PM . Reji Virk MD DIAGNOSTIC IMAGING O RDERABLES * (ABNORMAL) DIFFERENTIAL MANUAL (03/27/2015 3:25 AM CDT) Only the most recent of2 resultswithin the time period is included. WBC (corrected for NRBC) 11.1 10? 3 /uL [facility] Total Cell Count 100 [facility] Neutrophils Absolute Manual 7.77(H) 1.60 - 7.00 10? 3 /uL [facility] Comment:(BANDS+SEGS) x WBC = NEUT # (ANC) Lymphocyte Absolute Manual 1.55 0.80 - 2.90 10? 3 /uL [facility] Monocytes Absolute Manual 1.44(H) 0.14 - 0.66 10? 3 /uL [facility] Eosinophils Absolute Manual 0.33(H) 0.00 - 0.22 10? 3 /uL [facility] Band % Manual 3 0 - 10 % [facility] Neutrophil % Manual 67(H) 30 - 60 % [facility] Lymphocyte % Manual 14(L) 20 - 45 % [facility] Monocytes % Manual 13(H) 2 - 10 % [facility] Eosinophils % Manual 3 1 - 6 % [facility] Platelet Estimate Adequate Adequate [facility] Anisocytosis 1+(A) None [facility] Polychromasia 1+(A) None [facility] Blood specimen (specimen) BLOOD SPECIMEN / Unknown 03/27/2015 3:25 AM CDT 03/27/2015 3:55 AM CDT Reji Virk MD LAB - HEMATOLOGY ORD ERABLES [facility] [address] [phone] * [place] YUSRA SURGERY (03/25/2015 2:44 PM CDT) Only the most recent of3 resultswithin the time period is included. Anatomical Region Laterality Modality Other 03/25/2015 2:44 PM CDT Narrative 03/25/2015 2:44 PM CDT Reason for Exam->surgery Fluoroscopy was used for this exam. Please see the Operative report. Reji Virk MD FLUOROSCOPY ORDERABL ES * (ABNORMAL) BLOOD GASES ART COMPLETE [facility] OR (03/25/2015 2:20 PM CDT) Only the most recent of2 resultswithin the time period is included. pH Arterial 7.43 7.35 - 7.45 [facility] pCO2 Arterial 35 35 - 45 mmHg [facility] pO2 Arterial 170(H) 77 - 101 mmHg [facility] HCO3 Arterial 22.4 22.0 - 26.0 mmol/L [facility] TCO2 Arterial 23.4(L) 25.0 - 29.0 mmol/L [facility] Base Excess Arterial -1.4 -2.0 - 2.0 mmol/L [facility] Hemoglobin Arterial 11.5(L) 12.0 - 15.5 g/dL [facility] Oxyhemoglobin Arterial 98.3 95.0 - 100.0 % [facility] Carboxyhemoglobin 0.3 0.0 - 3.0 % [facility] Methemoglobin 0.3 0.0 - 2.0 % [facility] Ionized Calcium Whole Blood 1.13 mmol/L [facility] Adjusted Ionized Calcium 1.15(L) 1.19 - 1.34 mmol/L [facility] Sodium Whole Blood 133(L) 135 - 145 mmol/L [facility] Potassium Whole Blood 3.6 3.5 - 5.5 mmol/L [facility] Chloride Whole Blood 104 101 - 111 mmol/L [facility] Glucose Whole Blood 111(H) 70 - 110 mg/dL [facility] Lactic Acid Whole Blood 1.5 0.5 - 3.4 mmol/L [facility] Blood specimen (specimen) 03/25/2015 2:20 PM CDT 03/25/2015 2:22 PM CDT [facility] - 03/25/2015 2:27 PM CDT FIO2->60 Reji Virk MD LAB - BLOOD GASES OR DERABLES Performing Organization Address [facility]/ZIP Co de Phone Number [address] [phone] * CULTURE AEROBIC (03/25/2015 1:09 PM CDT) Culture Aerobic No Growth at 1 week [facility] Gram Stain No Organism Seen [facility] Bone tissue specimen (specimen) 03/25/2015 1:09 PM CDT 03/25/2015 5:18 PM CDT [facility] - 04/01/2015 12:39 PM CDT Posterior cervical spine Specimen Type->Bone Gram Stains are routinely screened for the presence of Polymorphonuclear Cells. Reji Virk MD LAB - MICROBIOLOGY O ROSSI Performing Organization Address [facility] Co de Phone Number [address] [phone] * CULTURE ANAEROBE (03/25/2015 1:09 PM CDT) Culture Anaerobic No Growth at 1 week [facility] Bone tissue specimen (specimen) 03/25/2015 1:09 PM CDT 03/25/2015 5:18 PM CDT [facility] - 04/01/2015 12:49 PM CDT Posterior cervical spine Specimen Type->Bone Reji Virk MD LAB - MICROBIOLOGY O ROSSI Performing Organization Address [facility] Co de Phone Number [address] [phone] * HCG BETA BLOOD QUANTITATIVE (03/25/2015 11:45 AM CDT) Beta-hCG Total Quantitative 2 <5 mIU/mL [facility] Comment: HCG Numeric Result Interpretation: ? Non- Females: ? < 5 mIU/mL ? Post-Menopausal Females: ??< 7 mIU/mL ? Blood specimen (specimen) BLOOD SPECIMEN / Unknown 03/25/2015 11:45 AM CDT 03/25/2015 11:50 AM CDT Reji Virk MD LAB - CHEMISTRY [facility] [address] [phone] * COMPLETE PFT W/WO BRONCHODILATOR (03/11/2015 12:42 PM CDT) Impressions [facility] RADIOLOGY - 03/11/2015 12:42 PM CDT [facility] DEPARTMENT OF PULMONARY, CRITICAL CARE, AND SLEEP MEDICINE Lakeisha Alejandra 03/12/2015 INTERPRETATION Please see technologist's comments mentioned above. SPIROMETRY: Forced vital capacity is normal. ??FEV1 is normal. FEV1/FVC ratio is normal. The inspection of the patient's flow-volume loops shows normal configuration of the inspiratory and expiratory limbs. LUNG VOLUMES: Lung volumes by body plethysmography are within normal limits. DLCO: Diffusing capacity unadjusted for Hb and COHb is within normal limits. AIRWAY RESISTANCE: The airway resistance and the specific conductance are normal. ARTERIAL BLOOD GAS ANALYSIS: ABG drawn on RA revealed normal oxygenation and acid-base balance. IMPRESSION: 1. Normal Pulmonary Function Test 2. ??ABG drawn on RA revealed normal oxygenation and acid-base balance. 3. In comparison to previous study on ??, there is a significant increase in FEV 1 by 350ml, FVC by 310 ml, TLC by 1100 ml and DLCO by 3.87 ml/min/mm hg. Dr Stalin Ocampo MD Pulmonary / Critical Care Fellow Division of Pulmonary, Critical Care, & Sleep Medicine [facility] [employer] Pager 03/12/2015 10:40 AM I have personally reviewed pulmonary function test data and finding. I concur with fellow's note. Samuel Urbano MD Narrative Procedure Note Provider, MD Alexis - 01/07/2018 IMPRESSION [facility] DEPARTMENT OF PULMONARY, CRITICAL CARE, AND SLEEP MEDICINE Lakeisha Alejandra 03/12/2015 INTERPRETATION Please see technologist's comments mentioned above. SPIROMETRY: Forced vital capacity is normal. FEV1 is normal. FEV1/FVC ratio is normal. The inspection of the patient's flow-volume loops shows normal configuration of the inspiratory and expiratory limbs. LUNG VOLUMES: Lung volumes by body plethysmography are within normal limits. DLCO: Diffusing capacity unadjusted for Hb and COHb is within normal limits. AIRWAY RESISTANCE: The airway resistance and the specific conductance are normal. ARTERIAL BLOOD GAS ANALYSIS: ABG drawn on RA revealed normal oxygenation and acid-base balance. IMPRESSION: 1. Normal Pulmonary Function Test 2. ABG drawn on RA revealed normal oxygenation and acid-base balance. 3. In comparison to previous study on , there is a significant increase in FEV 1 by 350ml, FVC by 310 ml, TLC by 1100 ml and DLCO by 3.87 ml/min/mm hg. Dr Stalin Ocampo MD Pulmonary / Critical Care Fellow Division of Pulmonary, Critical Care, & Sleep Medicine [facility] [employer] Pager 03/12/2015 10:40 AM I have personally reviewed pulmonary function test data and finding. I concur with fellow's note. Samuel Urbano MD Lowell Pop MD RESPIRATORY THERAPY ORDERABLES [facility] RADIOLOGY * (ABNORMAL) BLOOD GASES ART - PFT (03/11/2015 9:21 AM CDT) pH Arterial 7.43 7.35 - 7.45 [facility] pCO2 Arterial 40 35 - [address] [facility] pO2 Arterial 76(L) 77 - [address] [facility] HCO3 Arterial 26.1(H) 22.0 - 26.0 mmol/L [facility] TCO2 Arterial 27.3 25.0 - 29.0 mmol/L [facility] Base Excess Arterial 2.2(H) -2.0 - 2.0 mmol/L [facility] Hemoglobin Arterial 12.6 12.0 - 15.5 g/dL [facility] Oxyhemoglobin Arterial 95.7 95.0 - 100.0 % [facility] Carboxyhemoglobin 1.3 0.0 - 3.0 % [facility] Methemoglobin 0.1 0.0 - 2.0 % [facility] FI O2 Arterial 21.0 % [facility] Blood specimen (specimen) ARTERY SPECIMEN / Unknown 03/11/2015 9:21 AM CDT 03/11/2015 9:48 AM CDT Narrative [facility] - 03/11/2015 10:56 AM CDT FiO2->21 Lowell Pop MD LAB - BLOOD GASES O RDERABLES Performing Organization Address City/[facility]/ZIP Co de Phone Number [address] [phone] * TYPE + SCREEN PANEL (02/19/2015 11:59 AM CDT) Only the most recent of11 resultswithin the time period is included. Typem O POS [facility] Antibody Screen NEG [facility] Blood specimen (specimen) 02/19/2015 11:59 AM CDT 02/19/2015 12:44 PM CDT Sander Robles DO LAB - BLOOD BANK OR DERABLES Performing Organization Address City/[facility]/ZIP Co de Phone Number [facility] [address] [place] [address] * FLOW CYTOMETRY RITUXAN BLOOD PANEL (11/29/2014 2:49 PM CDT) Only the most recent of4 resultswithin the time period is included. Rituxan Panel Flow Cytometry Specimen: Blood Reference:[id number] Reason for test: Rituxan Requested Markers: 7 Flow Cytometry Results: Differential ?Result ?Comment WBC COUNT/uL ? 7300 %LYMPHOCYTES ? 33 LYMPH COUNT/uL ?2409 Cell Region A: Lymphocytes Surface Marker ?Result (%) ?CD3 ? 67 ?CD4 ? 32 ?CD8 ? 30 ? CD20 ? 11 ? CD19 ? 11 ? CD45 ? 100 ? CD56 ? 6 CD4:CD8 RATIO ? 1.07 Peripheral Blood Lymphocyte Adult Normal Reference Range (%) except CD4/CD8 CD1 ? 0 ? CD24 ?11-19 CD2 ? 74-94 ? CD25 ?5-17 CD3 ? 54-94 ? CD33 ?0-7 CD4 ? 40-56 ? CD34 ?0-3 CD4/CD8 ? (0.7-2.7) ?? CD38 ?15-55 CD5 ? 57-93 ? CD45 ?97-100 CD7 ? 58-82 ? CD56 ?6-26 CD8 ? 17-45 ? CD57 ?0-26 CD10 ?1-9 ? CD117 ? 0 CD11b ? 14-42 ? CD138 ? 0-1 CD11c ? 4-14 ?IgG ? 0-7 CD13 ?0-4 ? IgM ? 4-16 CD14 ?0-11 ?IgA ? 2-6 CD15 ?0-1 ? IgD ? 3-15 CD16 ?0-23 ?[place] ? 3-12 CD19 ?8-24 ?Lambda ?3-7 CD20 ?7-17 ?HLA-DR ?9-25 CD23 ?2-16 ?TdT ? 0 Test performed at [facility], [address] [place] [address] ??[id number] This test was developed and its performance characteristics determined by [facility]. It has not been cleared by the U.S. Food and Drug Administration. The FDA has determined that such clearance or approval is not necessary. This test is used for clinical purposes. It should not be regarded as investigational or for research. This laboratory is regulated under the Clinical Laboratory Improvement Amendments of 1998 (CLIA) as qualified to perform high complexity clinical testing. By law [place], CD4 lymphocyte counts on patients with HIV infection must be reported by the physician to the [facility] Health authority. Interpretation: Marker ?Absolute count (cells/ul) CD3 ? 1614 CD4 (CD4+CD3+) ?771 CD8 (CD8+CD3+) ?723 CD20 ?265 CD19 ?265 CD45 ?2409 CD56 ?145 This case has been personally reviewed and interpreted by the attending (teaching) pathologist. Final Diagnosis performed by Meera Douglas MD. Electronically signed 12/01/2014 [facility] ([place]) Blood specimen (specimen) 11/29/2014 2:49 PM CDT 11/29/2014 3:13 PM CDT Castillo Max MD LAB - PATHOLOGY/CY TOLOGY ORDERABLES [facility] ([place]) * LAB MISC TEST (11/29/2014 2:30 PM CDT) Reference Lab Results SEE SCANNED REPORT [facility] REF [facility] NON INTERF Other (qualifier value) 11/29/2014 2:30 PM CDT 11/29/2014 3:53 PM CDT Castillo Max MD LAB SEND OUT Performing Organization Address City/[facility] Co de Phone Number [facility] REF LAB NON INTERF * INFLUENZA A+B ANTIGEN RAPID (11/29/2014 2:30 PM CDT) Only the most recent of2 resultswithin the time period is included. Pathologist [facility] Influenza A Rapid Test Negative Negative [facility] Influenza B Rapid Test Negative Negative [facility] Nasopharyngeal SPECIMEN FROM NASOPHARYNGEAL STRUCTURE / Unknown 11/29/2014 2:30 PM CDT 11/29/2014 3:[address] [facility] - 11/29/2014 3:39 PM CDT Specimen Type->Nasopharyngeal If clinical conditions warrant, molecular testing for Influenza offers superior sensitivity (>98%) and is available by ordering INFLUENZA/RSV GILLIAN [[id number]]. ??To add to current sample within [address] an electronic or signed manual requisition order and call the [facility] Microbiology Lab at [phone] with your request. ?? The positive and negative predictive values of rapid influenza testing vary considerably depending upon the prevalence on influenza in the community. *False-positive results are more likely to occur when disease prevalence is low. *False-negative results are more likely to occur when disease prevalence is high. *Current local influenza prevalence can be obtained by calling the Director of Microbiology at [phone]. Castillo Max MD LAB - MICROBIOLOGY ORDERABLES Performing Organization Address [facility] Co de Phone Number [address] [phone] * CULTURE URINE (08/04/2014 1:01 AM SENIOR CLIENT ADVISOR) Only the most recent of19 resultswithin the time period is included. Pathologist [facility] Culture Urine Less than 10,000 CFU/ML of Normal Fecal Heidi [facility] Comment: Urine specimen (specimen) URINE SPECIMEN OBTAINED BY CLEAN CATCH PROCEDURE / Unknown 08/04/2014 1:01 AM SENIOR CLIENT ADVISOR 08/04/2014 1:10 AM SENIOR CLIENT ADVISOR Narrative [facility] - 08/06/2014 12:17 PM SENIOR CLIENT ADVISOR Specimen Type->Urine Andrea Briscoe MD LAB - MICROBIOLOGY O RDERABLES Performing Organization Address [facility] Co de Phone Number [address] [phone] * VIRAL RESPIRATORY PANEL BY RT-PCR (08/04/2014 12:35 AM SENIOR CLIENT ADVISOR) Pathologist [facility] Influenza A Negative Negative [facility] ORP (BEAKER) Influenza B Negative Negative [facility] (BEAKER) RSV A Negative Negative [facility] (BEAKER) RSV B Negative Negative [facility] (BEAKER) Parainfluenza [address] [facility] (BEAKER) Parainfluenza [address] [facility] (BEAKER) Parainfluenza [address] [facility] (BEAKER) Rhinovirus Negative Negative [facility] (BEAKER) Metapneumovirus Negative Negative [facility] (BEAKER) Adenovirus Negative Negative [facility] (BEAKER) Other (qualifier value) 08/04/2014 12:35 AM SENIOR CLIENT ADVISOR 08/04/2014 12:53 AM SENIOR CLIENT ADVISOR Narrative [facility] (BEAKER) - 08/07/2014 6:25 AM SENIOR CLIENT ADVISOR Performed at: ??01 - [address] ??[id number] Marble Cleaner: Kendrick Cardenas MD, Phone: ??[phone] Andrea Briscoe MD LAB - MICROBIOLOGY O ROSSI Performing Organization Address [facility]/ZIP Co de Phone Number [facility] ([facility]) * CULTURE BLOOD (08/03/2014 8:08 PM SENIOR CLIENT ADVISOR) Only the most recent of50 resultswithin the time period is included. Pathologist [facility] Culture Blood No Growth at 5 days [facility] Blood specimen (specimen) BLOOD SPECIMEN / Unknown 08/03/2014 8:08 PM SENIOR CLIENT ADVISOR 08/03/2014 8:20 PM SENIOR CLIENT ADVISOR Narrative [facility] - 08/08/2014 8:30 PM SENIOR CLIENT ADVISOR Specimen Type->Blood Robin Kemp MD LAB - MICROBIOLOGY O ROSSI Performing Organization Address [facility]/ZIP Co de Phone Number [address] [phone] * B-TYPE NATRIURETIC PEPTIDE (08/03/2014 8:05 PM SENIOR CLIENT ADVISOR) [facility] BNP 25 See Comment pg/mL [facility] Comment: A decision threshold of 100 pg/mL has been demonstrated to provide the maximal combination of sensitivity, specificity and predictive value for the diagnosis of congestive heart failure (CHF). ??Virtually all patients with no evidence of CHF have BNP values less than 100 pg/mL. A BNP value greater than 100 pg/mL is consistent with the diagnosis of CHF in the appropriate clinical setting. In a study of 693 patients (male and female) with diagnosed CHF, the following values were determined based on the NYHA functional classification system: NYHA Functional Class ?Mean Valule (pg/mL) ? % >100 pg/mL ?I ?320 ? 58.1 ?II ? 432 ? 73.0 ?III ?656 ? 79.0 ?IV ?1635 ? 98.3 ? Blood specimen (specimen) BLOOD SPECIMEN / Unknown 08/03/2014 8:05 PM SENIOR CLIENT ADVISOR 08/03/2014 8:18 PM SENIOR CLIENT ADVISOR Robin Kemp MD LAB - CHEMISTRY [facility] Organization Address [facility]/State/[facility] [place] [address], [facility] [phone] * CT CHEST WO CONTRAST (08/03/2014 5:50 PM SENIOR CLIENT ADVISOR) Anatomical Region Laterality Modality Chest Other Impressions 08/04/2014 1:16 PM SENIOR CLIENT ADVISOR IMPRESSION: 1. No acute pulmonary process. 2. Soft tissue in the anterior mediastinum may represent thymic hyperplasia, unchanged since 05/24/2014. However, given the history of lymphoma, continued imaging followup is recommended. 3. Nonspecific subcentimeter mediastinal lymph nodes, not significantly changed since 05/24/2014. 4. Cholelithiasis without evidence of cholecystitis. Findings were discussed with Dr. Garcia by Dr. Reymundo North at 6:40 PM on 08/03/2014. Dictated by Lilian North M.D. (transporter radiology). I, Dr. PRESTON DELONG M.D. have personally reviewed and interpreted this examination/study. This report was electronically signed by PRESTON DELONG M.D. ??on 08/04/2014 1:16 PM . Narrative 08/04/2014 1:16 PM SENIOR CLIENT ADVISOR EXAMINATION: Computed tomography (CT) of the chest without contrast HISTORY: 43-year-old female with history of Hodgkin lymphoma admitted for worsening fatigue and shortness of breath. TECHNIQUE: CT of the chest was performed without contrast according to standard protocol. COMPARISON: Comparison is made with a prior CT dated 02/12/2013 and PET/CT dated 05/24/2014. FINDINGS: The lungs are free of focal consolidations. No suspicious pulmonary nodules are visible. There is no pleural effusion or pneumothorax. There is no supraclavicular or axillary lymphadenopathy. Soft tissue in the anterior mediastinum has increased since 02/12/2013 but is unchanged since 05/24/2014 and may represent thymic hyperplasia. Subcentimeter mediastinal lymph nodes are also increased since 02/12/2013 but not significantly changed since 05/24/2014. Lack of intravenous contrast limits evaluation for hilar lymphadenopathy. The left-sided aortic arch is normal in course and caliber. The pulmonary arteries are normal in course and caliber. The remaining unenhanced vascular structures are normal. The heart size is normal. There is no pericardial effusion. Within the limits of this noncontrast study, the visualized portions of the liver, spleen, pancreas, adrenal glands, and kidneys are normal. Multiple tiny gallstones are seen. There is no gallbladder wall thickening or pericholecystic fluid to suggest cholecystitis. The visualized portions of the stomach and bowel also appear normal. Lower cervical and thoracic spinal fusion hardware is redemonstrated. Bone windows demonstrate no suspicious lytic or blastic lesion. The screws through T3 and T4 do not traverse the pedicles, unchanged. The fluid collection in the nuchal soft tissues superficial to the spinous processes of the lower cervical spine seen on MRI dated 06/12/2014 is not well-visualized on this noncontrast study. Procedure Note Preston Delong MD - 10/30/2017 EXAMINATION: Computed tomography (CT) of the chest without contrast HISTORY: 43-year-old female with history of Hodgkin lymphoma admitted forworsening fatigue and shortness of breath. TECHNIQUE: CT of the chest was performed without contrast according tostandard protocol. COMPARISON: Comparison is made with a prior CT dated 02/12/2013 and PET/CTdated 05/24/2014. FINDINGS: The lungs are free of focal consolidations. No suspicious pulmonarynodules are visible. There is no pleural effusion or pneumothorax. Thereis no supraclavicular or axillary lymphadenopathy. Soft tissue in theanterior mediastinum has increased since 02/12/2013 but is unchanged since 05/24/2014 and may represent thymichyperplasia. Subcentimeter mediastinal lymph nodes are also increasedsince 02/12/2013 but not significantly changed since 05/24/2014. Lack ofintravenous contrast limits evaluation for hilar lymphadenopathy. The left-sided aortic arch is normal in course and caliber. The pulmonaryarteries are normal in course and caliber. The remaining unenhancedvascular structures are normal. The heart size is normal. There is nopericardial effusion. Within the limits of this noncontrast study, the visualized portions ofthe liver, spleen, pancreas, adrenal glands, and kidneys are normal.Multiple tiny gallstones are seen. There is no gallbladder wall thickeningor pericholecystic fluid to suggest cholecystitis. The visualized portions of the stomach and bowel alsoappear normal. Lower cervical and thoracic spinal fusion hardware is redemonstrated. Bonewindows demonstrate no suspicious lytic or blastic lesion. The screwsthrough T3 and T4 do not traverse the pedicles, unchanged. The fluidcollection in the nuchal soft tissues superficial to the spinous processes of the lower cervical spine seen onMRI dated 06/12/2014 is not well-visualized on this noncontrast study. IMPRESSION IMPRESSION: 1. No acute pulmonary process. 2. Soft tissue in the anterior mediastinum may represent thymichyperplasia, unchanged since 05/24/2014. However, given the history oflymphoma, continued imaging followup is recommended. 3. Nonspecific subcentimeter mediastinal lymph nodes, not significantlychanged since 05/24/2014. 4. Cholelithiasis without evidence of cholecystitis. Findings were discussed with Dr. Garcia by Dr. Reymundo North at 6:40 PM on08/03/2014. Dictated by Lilian North M.D. (transporter radiology). I, Dr. PRESTON DELONG M.D. have personally reviewed and interpreted thisexamination/study. This report was electronically signed by PRESTON DELONG M.D. on 08/04/20141:16 PM . Robin Kemp MD CT ORDERABLES * (ABNORMAL) C-REACTIVE PROTEIN (06/15/2014 7:30 PM SENIOR CLIENT ADVISOR) C-Reactive Protein 0.7(H) <=0.5 mg/dL [facility] Blood specimen (specimen) BLOOD SPECIMEN / Unknown 06/15/2014 7:30 PM SENIOR CLIENT ADVISOR 06/15/2014 7:36 PM SENIOR CLIENT ADVISOR Lori Foley MD LAB - CHEMISTRY ORDE RABYASH Performing Organization Address [facility] de Phone Number [address] [phone] * ERYTHROCYTE SEDIMENTATION RATE (06/15/2014 7:30 PM SENIOR CLIENT ADVISOR) Only the most recent of2 resultswithin the time period is included. Erythrocyte Sedimentation Rate Westergren 16 0 - 20 MM/HR [facility] Blood specimen (specimen) BLOOD SPECIMEN / Unknown 06/15/2014 7:30 PM SENIOR CLIENT ADVISOR 06/15/2014 7:37 PM SENIOR CLIENT ADVISOR Lori Foley MD LAB - HEMATOLOGY ORD ERABLES Performing Organization Address [facility] Co de Phone Number [address] [phone] * MRI CERVICAL SPINE WWO CONT (06/12/2014 8:44 AM SENIOR CLIENT ADVISOR) Only the most recent of3 resultswithin the time period is included. Anatomical Region Laterality Modality Spine Other Impressions 06/12/2014 11:56 AM SENIOR CLIENT ADVISOR IMPRESSION: 1. Slightly increased size of the rim-enhancing collection in the nuchal soft tissues superficial to the spinous processes of C6, C7 and T1, most likely representing a soft tissue abscess given the presence of increased FDG uptake on the recent PET/CT. Findings discussed with Dr. Woods by Dr. Sung on 06/12/2014 at 11:30 AM. This report was approved ??by Stalin Sung M.D. ?? on 06/12/2014 11:32 AM. I, Dr. KEELY MEDINA M.D. have personally reviewed and interpreted this examination/study. This report was electronically signed by KEELY MEDINA M.D. ??on 06/12/2014 11:56 AM . Narrative 06/12/2014 11:56 AM SENIOR CLIENT ADVISOR EXAMINATION: Magnetic resonance imaging (MRI) of the cervical spine without and with contrast HISTORY: ??Hodgkin's lymphoma with palpable nodule in the region of C7 vertebra status post chemotherapy which ended on 03/20/2013. TECHNIQUE: MRI of the cervical spine was performed prior to and following the uneventful administration of 8 mL Gadavist intravenous gadolinium contrast according to standard protocol. FINDINGS: Comparison is made with a cervical spine MRI from 11/04/2012, 03/15/[address] from 05/24/2014. Instrumented lower cervical and upper thoracic posterior spinal fusion is partially imaged. There is unchanged gentle cervical kyphosis. Vertebral bodies are normal in height without evidence of compression fractures. Marrow signal intensity is normal. The craniocervical junction and visualized portions of the posterior fossa appear normal. The spinal cord appears normal. There is degenerative disc disease with disc height loss involving C5-6 and C6-7. No central canal stenosis is seen. The uncovertebral joints appear normal. No neural foraminal stenosis is seen. There is a rim-enhancing collection in the nuchal soft tissues superficial to the spinous processes of C6, C7 and T1, measuring 0.7 cm AP x 2.6 cm TV x 5.3 cm CC, previously measuring 0.7 x 2.6 x 4.7 cm in March 2014. Normal flow voids are identified in the vertebral arteries. Procedure Note Keely Medina MD - 10/30/2017 EXAMINATION: Magnetic resonance imaging (MRI) of the cervical spinewithout and with contrast HISTORY: Hodgkin's lymphoma with palpable nodule in the region of I7utspvkft status post chemotherapy which ended on 03/20/2013. TECHNIQUE: MRI of the cervical spine was performed prior to and followingthe uneventful administration of 8 mL Gadavist intravenous gadoliniumcontrast according to standard protocol. FINDINGS: Comparison is made with a cervical spine MRI from 11/04/2012,03/15/[address] from 05/24/2014. Instrumented lower cervical and upper thoracic posterior spinal fusion ispartially imaged. There is unchanged gentle cervical kyphosis. Vertebralbodies are normal in height without evidence of compression fractures.Marrow signal intensity is normal. The craniocervical junction and visualized portions of the posterior fossaappear normal. The spinal cord appears normal. There is degenerative discdisease with disc height loss involving C5-6 and C6-7. No central canalstenosis is seen. The uncovertebral joints appear normal. No neural foraminal stenosis is seen.There is a rim-enhancing collection in the nuchal soft tissues superficialto the spinous processes of C6, C7 and T1, measuring 0.7 cm AP x 2.6 cm TVx 5.3 cm CC, previously measuring 0.7 x 2.6 x 4.7 cm in March 2014. Normal flow voids areidentified in the vertebral arteries. IMPRESSION IMPRESSION: 1. Slightly increased size of the rim-enhancing collection in the nuchalsoft tissues superficial to the spinous processes of C6, C7 and T1, mostlikely representing a soft tissue abscess given the presence of increasedFDG uptake on the recent PET/CT. Findings discussed with Dr. Woods by Dr. Sung on 06/12/2014 at11:30 AM. This report was approved by Stalin Sung M.D. on 06/12/201411:32 AM. I, Dr. KEELY MEDINA M.D. have personally reviewed and interpreted thisexamination/study. This report was electronically signed by KEELY MEDINA M.D. on06/12/2014 11:56 AM . Castillo Max MD MR ORDERABLES * FLOW CYTOMETRY PANEL (02/22/2014 10:40 AM CDT) Only the most recent of2 resultswithin the time period is included. Flow Cytometry Results Specimen: ??FNA & core biopsy Reference: [id number] Reason for test: Hx. of Hodgkins Lymphoma ; new bone lesion Markers: 20 DIAGNOSIS: MEDIASTINAL MASS, FLOW CYTOMETRIC IMMUNOPHENOTYPIC ANALYSIS: - NO EVIDENCE OF NON-HODGKIN LYMPHOMA - MATURING T-CELL POPULATION SUGGESTIVE OF THYMIC TISSUE (SEE DESCRIPTION) Flow Cytometry Results: Differential ?Result ?Comment %LYMPHOCYTES ? 86 ?? %MONOCYTES ? 8 %GRANULOCYTES ? 6 Cell Region A: Lymphocytes Surface Marker ?Result (%) ? CD1a ? 83 ?CD2 ? 94 ?CD7 ? 93 ?CD3 ? 69 ?CD4 ? 86 ?CD5 ? 92 ?CD8 ? 83 ? CD10 ? 6 ? CD14 ? 0 ? CD19 ? 0 ? CD20 ? 0 ? CD23 ? 0 ? CD45 ? 93 ? CD15 ? 0 ? CD30 ? 0 ? HLA-DR ? 1 ?[place] ? 0 ? Lambda ? 1 ? CD22 ? 0 ?TdT ? 5 Cell Region B: Will Surface Marker ?Result (%) ? CD1a ? 84 ?CD2 ? 82 ?CD7 ? 83 ?CD3 ? 44 ?CD4 ? 74 ?CD5 ? 85 ?CD8 ? 69 ? CD10 ? 21 ? CD14 ? 1 ? CD19 ? 3 ? CD20 ? 3 ? CD23 ? 0 ? CD45 ? 86 ? CD15 ? 2 ? CD30 ? 2 ? HLA-DR ? 2 ?[place] ? 2 ? Lambda ? 1 ? CD22 ? 1 Peripheral Blood Lymphocyte Adult Normal Reference Range (%) except CD4/CD8 CD1 ? 0 ? CD24 ?11-19 CD2 ? 74-94 ? CD25 ?5-17 CD3 ? 54-94 ? CD33 ?0-7 CD4 ? 40-56 ? CD34 ?0-3 CD4/CD8 ? (0.7-2.7) ?? CD38 ?15-55 CD5 ? 57-93 ? CD45 ?97-100 CD7 ? 58-82 ? CD56 ?6-26 CD8 ? 17-45 ? CD57 ?0-26 CD10 ?1-9 ? CD117 ? 0 CD11b ? 14-42 ? CD138 ? 0-1 CD11c ? 4-14 ?IgG ? 0-7 CD13 ?0-4 ? IgM ? 4-16 CD14 ?0-11 ?IgA ? 2-6 CD15 ?0-1 ? IgD ? 3-15 CD16 ?0-23 ?[place] ? 3-12 CD19 ?8-24 ?Lambda ?3-7 CD20 ?7-17 ?HLA-DR ?9-25 CD23 ?2-16 ?TdT ? 0 Peripheral Blood Monocyte Region Adult Normal Reference Range (%) CD1 ? 0-2 ? CD24 ?0-28 CD2 ? 0-28 ?CD25 ?5-17 CD3 ? 0-13 ?CD33 ?74-100 CD4 ? 20-100 ?CD34 ?0-5 CD5 ? 0-16 ?CD38 ?65-100 CD7 ? 0-3 ? CD45 ?97-100 CD8 ? 0-16 ?CD56 ?0-18 CD10 ?11-39 ? CD57 ?0-8 CD11b ? 84-100 ?CD117 ? 0-1 CD11c ? 89-100 ?CD138 ? 0-1 CD13 ?63-100 ?IgG ? 46-98 CD14 ?79-99 ? IgM ? 0-15 CD15 ?0-37 ?IgA ? 0-16 CD16 ?0-34 ?IgD ? 0-20 CD19 ?0-48 ?[place] ? 0-6 CD20 ?0-10 ?Lambda ?0-7 CD23 ?0-13 ?HLA-DR ?67-100 TdT ? 0 * The established laboratory minimum viability is 70%. Values below this minimum may result in the failure to find an abnormal population of cells. Test performed at [facility], [address] [facility] ??[id number] This test was developed and its performance characteristics determined by [facility]. It has not been cleared by the U.S. Food and Drug Administration. The FDA has determined that such clearance or approval is not necessary. This test is used for clinical purposes. It should not be regarded as investigational or for research. This laboratory is regulated under the Clinical Laboratory Improvement Amendments of 1998 (CLIA) as qualified to perform high complexity clinical testing. IMMUNOPHENOTYPE AND MORPHOLOGY: Flow cytometric analysis of the single cell suspension prepared from the specimen submitted as mediastinal mass reveals 86% of cells within the small lymphocyte region, 8% within the large mononuclear region, and 6% within the granulocyte region. B lymphocytes are few in number but appear polytypic. ?? The majority of cells are T-cells, with coexpression of CD2, CD7, CD5, CD3 (surface, partial), CD4, CD8, CD1a (partial), and CD45 consistent with cortical thymocytes. There are also CD4 positive, CD8 negative and CD8 positive, CD4 negative T-cell subsets. ??T-cells represent 87% of all cells analyzed by CD2. 4% of all events analyzed express the immature cell T-cell marker TDT. Cytomorphologic review of the Hunter's-stained touch imprints prepared from the lymph node tissue demonstrates a polymorphic population of lymphocytes composed predominantly of small and mature-appearing cells with condensed chromatin and scant cytoplasm. ??There are rare larger immunoblast-like forms. No Hodgkin or Vu-Aleyda cells are identified. Based on the combined flow cytometric and cytomorphologic data which fails to identify a monoclonal B cell population or immunophenotypically aberrant T cell population, there is no evidence of a non-Hodgkin lymphoma. The immunophenotype of the T-cell population is most consistent with cortical thymocytes, displaying a maturational spectrum as would be expected in thymic tissue. ??Differential diagnostic considerations include ectopic thymus, thymic hyperplasia, and thymoma; correlation with the biopsy specimen ([id number]), fine needle aspiration cytology ([id number]), and the clinical history is required for definitive diagnosis and classification. KM/MS/YC This case has been personally reviewed and interpreted by the attending (teaching) pathologist. Final Diagnosis performed by Meera Douglas MD. Electronically signed 02/23/2014 [facility] ([facility]) Other (qualifier value) 02/22/2014 10:40 AM CDT 02/22/2014 10:41 AM CDT Narrative [facility] ([facility]) - 02/23/2014 5:38 PM CDT Specimen is from IR ??Bone lesion Neoplastic:->Yes Reason for Exam->pt has hx hodgkins lymphoma ?has new bone lesion Castillo Max MD LAB - HEMATOLOGY O RDVICENTA Performing Organization Address [facility] Co de Phone Number [facility] ([facility]) * PATHOLOGY/GENETICS HISTORICAL-ONBASE (02/22/2014) Only the most recent of2 resultswithin the time period is included. 02/22/2014 [facility] - 03/08/2014 1:10 PM CDT Historical Provider LAB - CHEMISTRY O RDVICENTA Performing Organization Address [facility] Co de Phone Number [facility] [address] * CT GUIDED NEEDLE PLACEMENT (02/21/2014 5:17 PM CDT) Only the most recent of2 resultswithin the time period is included. Anatomical Region Laterality Modality Abdomen Other Impressions 02/25/2014 8:04 PM CDT Impression: CT guided biopsy of anterior mediastinal mass, ??as described above. Note: Pathology report is pending at the time of this dictation. The patient will be followed up with Chest X-ray to rule out any delayed pneumothorax. I Dr. Carie Baker performed/was present throughout the procedure and provided the moderate sedation service. Please see nursing flow chart for more details. . ? This report was electronically signed by KAREEM BAKER M.D. ??on 02/25/2014 8:04 PM . Narrative 02/25/2014 8:04 PM CDT History: Patient with a history of lymphoma was presented with anterior mediastinal mass. Patient was referred for CT-guided biopsy/fine-needle aspiration. Operators: Dr. Carie Baker, Attending Physician Anesthesia: 1. ??Local anesthesia - 10 ml of 1 % lidocaine 2. ??Intravenous Conscious Sedation (Versed one mg and Fentanyl 25 mcg). Procedure: 1. ??Limited non-contrast CT examination of chest. . 2. ??CT guided biopsy of right anterior mediastinal mass . Start time:1605 ? Sedation Initiated Time: 1605 ? End Time: 1654 Procedure in Detail: The procedure and possible complications were explained to the patient in detail, and informed consent was obtained. The patient was placed in a supine position on the CT table and a limited non-contrast CT examination chest was performed with radio-opaque grid markers over the region of interest. The study demonstrated the known anterior mediastinal mass overlying the aorta and pulmonary artery. An appropriate percutaneous access site was marked on the skin with a planned trajectory of avoiding the internal mammary artery and major blood vessels. Patient received intravenous conscious sedation with Versed and Fentanyl. Patient?s vital signs were monitored by a qualified radiology nurse throughout the procedure. The marked site and skin around the region was prepped and draped in a sterile fashion. ??Local anesthesia was provided by the injection with 1% Lidocaine. ??A 19 gauge co-axial needle system was advanced in stages under CT guidance. With needle tip at the edge of the lesion, 2 fine needle aspirations were performed using 22-gauge Chiba needle. Aspirin the mason tender the since lymphoid cells were present, the mason tender requested to additional core samples to be sent on [facility]. Hence, 4 core samples were acquired with 20-gauge biopsy gun, 2 was given in RPMI and 2 was given formalin. The samples were sent to pathology service. A final post-biopsy imaging did not show any immediate complication like hemorrhage or pneumothorax. Followup CT examination did not show any large hemorrhage or pneumothorax. The patient tolerated the procedure and sedation ??well. The patient was transferred in stable condition. Procedure Note Kareem Baker MD - 10/30/2017 History: Patient with a history of lymphoma was presented with anteriormediastinal mass. Patient was referred for CT-guided biopsy/fine-needleaspiration. Operators: Dr. Carie Baker, Attending Physician Anesthesia: 1. Local anesthesia - 10 ml of 1 % lidocaine 2. Intravenous Conscious Sedation (Versed one mg and Fentanyl 25 mcg). Procedure: 1. Limited non-contrast CT examination of chest. . 2. CT guided biopsy of right anterior mediastinal mass . Start time:1605 Sedation Initiated Time: 1605 End Time: 1655 Procedure in Detail: The procedure and possible complications wereexplained to the patient in detail, and informed consent was obtained. The patient was placed in a supine position on the CT table and a limitednon- contrast CT examination chest was performed with radio-opaque gridmarkers over the region of interest. The study demonstrated the knownanterior mediastinal mass overlying the aorta and pulmonary artery. An appropriate percutaneous access site wasmarked on the skin with a planned trajectory of avoiding the internalmammary artery and major blood vessels. Patient received intravenous conscious sedation with Versed and Fentanyl.Patient?s vital signs were monitored by a qualified radiology nursethroughout the procedure. The marked site and skin around the region was prepped and draped in asterile fashion. Local anesthesia was provided by the injection with 1%Lidocaine. A 19 gauge co-axial needle system was advanced in stages underCT guidance. With needle tip at the edge of the lesion, 2 fine needle aspirations were performed -rwciu Chiba needle. Aspirin the mason tender the since lymphoid cellswere present, the mason tender requested to additional core samples to besent on RPMI. Hence, 4 core samples were acquired with 20-gauge biopsy gun, 2 was given in RPMI and 2 was givenformalin. The samples were sent to pathology service. A final post-biopsyimaging did not show any immediate complication like hemorrhage orpneumothorax. Followup CT examination did not show any large hemorrhage or pneumothorax. The patient tolerated the procedure and sedation well. The patient wastransferred in stable condition. IMPRESSION Impression: CT guided biopsy of anterior mediastinal mass, as describedabove. Note: Pathology report is pending at the time of this dictation. Thepatient will be followed up with Chest X-ray to rule out any delayedpneumothorax. I Dr. Carie Baker performed/was present throughout the procedure andprovided the moderate sedation service. Please see nursing flow chart formore details. . ? This report was electronically signed by KAREEM BAKER M.D. on02/25/2014 8:04 PM . Castillo Max MD CT ORDERABLES * PATHOLOGY TISSUE (02/21/2014 4:55 PM CDT) Surgical Pathology Tissue CLINICAL HISTORY: Mediastinal mass FINAL DIAGNOSIS: SOFT TISSUE, MEDIASTINAL MASS , NEEDLE CORE BIOPSY: - ??THYMIC TISSUE GROSS DESCRIPTION: The specimen is received in formalin, labeled Lakeisha Alejandra and mediastinal mass . ??It consists of three <0.1 cm in external diameter cylindrical portions of thompson-white soft tissue which are 0.2, 0.3 and 0.4 cm in length. ??The specimen is strained into a mesh bag, stained with hematoxylin, and submitted in toto in cassette A1. EW for AF/edk MICROSCOPIC DESCRIPTION: This is thymus, with more than usually abundant benign lymphoid tissue but no germinal centers. The flow cytometric analysis for this biopsy ([id number]) has a non-clonal T cell-predominant population compatible with normal thymus. There is no epithelial neoplasm. BIOLOGICAL SCIENCE AIDE/AF/edk The performance characteristics of all immunohistochemical and indirect immunofluorescence stains (if any) cited in this report were determined by the Histopathology Laboratory of [facility].?? Some of these tests were developed by our own laboratory and have not been cleared or approved by the US Food and Drug Administration.?The FDA does not require this test to go through premarket FDA review.?These tests are used for clinical purposes. They should not be regarded as investigational or for research.?? This laboratory is certified under the Clinical Laboratory Improvement Amendments (CLIA) as qualified to perform high complexity clinical laboratory testing. This case has been personally reviewed and interpreted by the attending (teaching) pathologist. Final Diagnosis performed by Kanika Steiner MD. Electronically signed 02/23/2014 [facility] ([facility]) Other (qualifier value) 02/21/2014 4:55 PM CDT 02/22/2014 7:39 AM CDT Narrative [facility] ([facility]) - 02/23/2014 7:36 PM CDT Collection Date->02/21/14 Collection Time-> 4:23 PM Specimen A->Mediastinum Castillo Max MD LAB - PATHOLOGY/CY TOLOGY ORDERABLES [facility] ([facility]) * CYTOLOGY NON-OFFICE MANAGER PANEL (STL) (02/21/2014 4:21 PM CDT) Cytology Non-Loader [employer] Reference: [id number] Specimen: MEDIASTINUM, MASS Clinical History: h/o lymphoma, mediastinal mass Gross Description: 2 air-dried smears, 2 alcohol fixed smears, 10ml bloody RPMI Preparation Method: 2 diff-quik stained slides , 2 pap stained slides SPECIMEN ADEQUACY: ?- ??SATISFACTORY FOR EVALUATION FINAL DIAGNOSIS: MEDIASTINUM, MASS, FINE NEEDLE ASPIRATION: ?- ??LYMPHOID POPULATION OF CELLS, ??SEE FLOW CYTOMETRY MICROSCOPIC DESCRIPTION: Material reviewed: 2 Diff Quick stained smears, 2 pap stained smears Review of the smears prepared from the FNA of the mediastinal mass reveals a population of small mature appearing lymphocytes with occasional medium sized lymphocytes. Please refer to the concurrent flow cytometric analysis ([id number]) and surgical biopsy specimen ([id number]). ES/OA COMMENT(S): PRELIMINARY DIAGNOSIS: Immediate interpretation by: Dr. Reymundo Allen PASS 1: ??Many lymphoid cells PASS 2: ??Many lymphoid cells This case has been personally reviewed and interpreted by the attending (teaching) pathologist. Initial Evaluation performed by Dax NIELSEN(ASCP). Electronically signed 02/23/2014 Final Diagnosis performed by Mannie Allen MD. Electronically signed 02/23/2014 [facility] ([facility]) Other (qualifier value) 02/21/2014 4:21 PM CDT 02/22/2014 1:11 PM CDT Narrative [facility] ([facility]) - 02/23/2014 2:39 PM CDT Diagnosis->mediastinal mass Collection Date->02/21/14 Collection Time-> 4:18 PM Specimen A->Mediastinum Castillo Max MD LAB - PATHOLOGY/CY TOLOGY ORDERABLES Performing Organization Address [facility] Co de Phone Number [facility] ([facility]) * LAB HISTORICAL RESULTS-ONBASE (04/19/2013) Only the most recent of11 resultswithin the time period is included. 04/19/2013 [facility] - 04/19/2013 2:09 PM CDT Historical Provider LAB - CHEMISTRY O RDERABLES Performing Organization Address [facility] Co de Phone Number [facility] [address] * (ABNORMAL) PLATELET COUNT AUTO (04/01/2013 12:25 PM CDT) Only the most recent of15 resultswithin the time period is included. Platelet 42(LL) 150 - 400 10^3/uL [facility] Comment:CHECKED NOT CALLED 8 N Venous blood specimen (specimen) 04/01/2013 12:25 PM CDT 04/01/2013 12:32 PM CDT [facility] - 04/01/2013 1:24 PM CDT Please draw post transfusion Castillo Max MD LAB - HEMATOLOGY O RDERABLES Performing Organization Address [facility] Co de Phone Number [facility] [address] [phone] * PREPARE PLATELET PHERESIS UNIT(S) (04/01/2013 9:45 AM CDT) Only the most recent of11 resultswithin the time period is included. Pathologist [facility] Blood Product [id number] ? A- ?SDP-HLA ? TRANSFUSED ? 04/01/13 1107 ?? [facility] 04/01/2013 9:45 AM CDT 04/01/2013 9:45 AM CDT Castillo Max MD LAB - BLOOD BANK O ROSSI Performing Organization Address City/[facility] Co de Phone Number [facility] [address] [place] [address], [facility] [phone] * CROSSMATCH RBC LEUKOREDUCED (03/30/2013 2:00 PM CDT) Only the most recent of15 resultswithin the time period is included. [facility] Blood Product [id number] ?O+ ?DQW-ZOLT-PDZ ? XM COMPATIBLE ? [id number] ?O+ ?FNE-ASFS-IVP ? TRANSFUSED ? 03/30/13 1712 ?? [facility] 03/30/2013 2:00 PM CDT 03/30/2013 2:44 PM CDT Castillo Max MD LAB - BLOOD BANK O ROSSI Performing Organization Address [facility] Co de Phone Number [address] [phone] * PHOSPHORUS BLOOD (03/27/2013 9:45 AM CDT) Only the most recent of80 resultswithin the time period is included. [facility] Phosphorus 4.4 2.3 - 4.7 mg/dL [facility] Serum 03/27/2013 9:45 AM CDT 03/27/2013 12:01 PM CDT Castillo Max MD LAB - CHEMISTRY OR DERABLES Performing Organization Address [facility] [place] [address], [facility] [phone] * URIC ACID BLOOD (03/22/2013 2:00 AM CDT) Only the most recent of7 resultswithin the time period is included. Uric Acid 6.2 2.6 - 7.2 mg/dL [facility] Serum BLOOD SPECIMEN / Unknown 03/22/2013 2:00 AM CDT 03/22/2013 2:22 AM CDT Castillo Max MD LAB - CHEMISTRY OR DERABLES [address] [phone] * VAS RIGHT VENOUS DUPLEX UE (03/21/2013 9:42 AM CDT) Only the most recent of3 resultswithin the time period is included. Anatomical Region Laterality Modality Other Castillo Max MD VASCULAR LAB ORDER GITA * IR TUNNEL PLEURAL CATH REMOVE (02/21/2013 3:22 PM CDT) Anatomical Region Laterality Modality Other Narrative 02/21/2013 4:51 PM CDT This is an interventional nephrology procedure performed on 02/21/2013 [employer] Baggage: Lauri Felipe Attending: Lauri Felipe Procedures performed: 1. Insertion of PICC line 2. Fluoroscopic guidance for central venous catheter procedure 3. Ultrasound guidance for vascular access with permanent recording 4. Removal of tunneled central venous catheter with subcutaneous port This patient was referred for placement of a PICC Line and removal of an existing Port-A-Cath to continue chemotherapy for lymphoma. Following informed consent the patient was taken to the angiography suite and placed on the fluoroscopy table. The skin of the left upper arm was prepared with chlorhexidine and sterile drapes were applied. Under real-time ultrasound guidance a basilic vein was cannulated with a micropuncture needle and a microfilament wire was advanced to the central veins under fluoroscopic guidance. This wire was utilized to measure an appropriate length of the catheter which in this case was 40 cm. Accordingly a 6 Latvian triple-lumen power PICC line was trimmed to this length and advanced over the guidewire with the aid of the peel-away sheath which was then removed. All lumens flushed easily and were locked with heparinized saline. The catheter was fixed in place with a stat lock device and a sterile CHG dressing was applied. Fluoroscopy confirmed the presence of the catheter tip in the SVC near the right atrium. Attention was then turned to removal of an existing Port-A-Cath. Local anesthetic was infiltrated in the skin and subcutaneous tissues overlying a previously placed a double port and a 1 inch incision was made. Using blunt and sharp dissection and with the aid of electrocautery the subcutaneous port was exposed and the connecting port was identified and free from surrounding tissues. ??A pursestring suture was placed around the catheter tract and the catheter was then removed in its entirety. Hemostasis was secured by ligation of the pursestring suture. The Port-A-Cath was then removed from the subcutaneous pocket that space was closed with interrupted 3-0 Vicryl sutures subcutaneous tissue was approximated with interrupted 3-0 Vicryl sutures and the skin closed with a running 4-0 Vicryl subcuticular suture. The wound was then sealed with Dermabond and Steri-Strips were applied and a Telfa dressing and Tegaderm were applied. I was present throughout the procedure. I was present throughout the procedure. This report was electronically signed by LAURI FELIPE M.D. ??on 02/21/2013 4:51 PM . Procedure Note Lauri Felipe MD - 10/31/2017 This is an interventional nephrology procedure performed on 02/21/2013 [employer] Baggage: Lauri Felipe Attending: Lauri Felipe Procedures performed: 1. Insertion of PICC line 2. Fluoroscopic guidance for central venous catheter procedure 3. Ultrasound guidance for vascular access with permanent recording 4. Removal of tunneled central venous catheter with subcutaneous port This patient was referred for placement of a PICC Line and removal of anexisting Port-A-Cath to continue chemotherapy for lymphoma. Following informed consent the patient was taken to the angiography suiteand placed on the fluoroscopy table. The skin of the left upper arm was prepared with chlorhexidine and steriledrapes were applied. Under real-time ultrasound guidance a basilic veinwas cannulated with a micropuncture needle and a microfilament wire wasadvanced to the central veins under fluoroscopic guidance. This wire was utilized to measure an appropriatelength of the catheter which in this case was 40 cm. Accordingly a 6French triple-lumen power PICC line was trimmed to this length andadvanced over the guidewire with the aid of the peel-away sheath which was then removed. All lumens flushed easily andwere locked with heparinized saline. The catheter was fixed in place witha stat lock device and a sterile CHG dressing was applied. Fluoroscopyconfirmed the presence of the catheter tip in the SVC near the right atrium. Attention was then turned to removal of an existing Port-A-Cath. Local anesthetic was infiltrated in the skin and subcutaneous tissuesoverlying a previously placed a double port and a 1 inch incision wasmade. Using blunt and sharp dissection and with the aid of electrocauterythe subcutaneous port was exposed and the connecting port was identified and free from surrounding tissues. Apursestring suture was placed around the catheter tract and the catheterwas then removed in its entirety. Hemostasis was secured by ligation ofthe pursestring suture. The Port-A-Cath was then removed from the subcutaneous pocket that space wasclosed with interrupted 3-0 Vicryl sutures subcutaneous tissue wasapproximated with interrupted 3-0 Vicryl sutures and the skin closed witha running 4-0 Vicryl subcuticular suture. The wound was then sealed with Dermabond and Steri-Strips wereapplied and a Telfa dressing and Tegaderm were applied. I was present throughout the procedure. I was present throughout the procedure. This report was electronically signed by LAURI FELIPE M.D. on 02/21/20134:51 PM . Castillo Max MD IR ORDERABLES * IR PICC LINE INSERT (02/21/2013 3:22 PM CDT) Only the most recent of5 resultswithin the time period is included. Anatomical Region Laterality Modality Other Narrative 02/21/2013 4:51 PM CDT This is an interventional nephrology procedure performed on 02/21/2013 [employer] Baggage: Lauri Felipe Attending: Lauri Felipe Procedures performed: 1. Insertion of PICC line 2. Fluoroscopic guidance for central venous catheter procedure 3. Ultrasound guidance for vascular access with permanent recording 4. Removal of tunneled central venous catheter with subcutaneous port This patient was referred for placement of a PICC Line and removal of an existing Port-A-Cath to continue chemotherapy for lymphoma. Following informed consent the patient was taken to the angiography suite and placed on the fluoroscopy table. The skin of the left upper arm was prepared with chlorhexidine and sterile drapes were applied. Under real-time ultrasound guidance a basilic vein was cannulated with a micropuncture needle and a microfilament wire was advanced to the central veins under fluoroscopic guidance. This wire was utilized to measure an appropriate length of the catheter which in this case was 40 cm. Accordingly a 6 Latvian triple-lumen power PICC line was trimmed to this length and advanced over the guidewire with the aid of the peel-away sheath which was then removed. All lumens flushed easily and were locked with heparinized saline. The catheter was fixed in place with a stat lock device and a sterile CHG dressing was applied. Fluoroscopy confirmed the presence of the catheter tip in the SVC near the right atrium. Attention was then turned to removal of an existing Port-A-Cath. Local anesthetic was infiltrated in the skin and subcutaneous tissues overlying a previously placed a double port and a 1 inch incision was made. Using blunt and sharp dissection and with the aid of electrocautery the subcutaneous port was exposed and the connecting port was identified and free from surrounding tissues. ??A pursestring suture was placed around the catheter tract and the catheter was then removed in its entirety. Hemostasis was secured by ligation of the pursestring suture. The Port-A-Cath was then removed from the subcutaneous pocket that space was closed with interrupted 3-0 Vicryl sutures subcutaneous tissue was approximated with interrupted 3-0 Vicryl sutures and the skin closed with a running 4-0 Vicryl subcuticular suture. The wound was then sealed with Dermabond and Steri-Strips were applied and a Telfa dressing and Tegaderm were applied. I was present throughout the procedure. I was present throughout the procedure. This report was electronically signed by LAURI FELIPE M.D. ??on 02/21/2013 4:51 PM . Procedure Note Lauri Felipe MD - 10/31/2017 This is an interventional nephrology procedure performed on 02/21/2013 [employer] Baggage: Lauri Felipe Attending: Lauri Felipe Procedures performed: 1. Insertion of PICC line 2. Fluoroscopic guidance for central venous catheter procedure 3. Ultrasound guidance for vascular access with permanent recording 4. Removal of tunneled central venous catheter with subcutaneous port This patient was referred for placement of a PICC Line and removal of anexisting Port-A-Cath to continue chemotherapy for lymphoma. Following informed consent the patient was taken to the angiography suiteand placed on the fluoroscopy table. The skin of the left upper arm was prepared with chlorhexidine and steriledrapes were applied. Under real-time ultrasound guidance a basilic veinwas cannulated with a micropuncture needle and a microfilament wire wasadvanced to the central veins under fluoroscopic guidance. This wire was utilized to measure an appropriatelength of the catheter which in this case was 40 cm. Accordingly a 6French triple-lumen power PICC line was trimmed to this length andadvanced over the guidewire with the aid of the peel-away sheath which was then removed. All lumens flushed easily andwere locked with heparinized saline. The catheter was fixed in place witha stat lock device and a sterile CHG dressing was applied. Fluoroscopyconfirmed the presence of the catheter tip in the SVC near the right atrium. Attention was then turned to removal of an existing Port-A-Cath. Local anesthetic was infiltrated in the skin and subcutaneous tissuesoverlying a previously placed a double port and a 1 inch incision wasmade. Using blunt and sharp dissection and with the aid of electrocauterythe subcutaneous port was exposed and the connecting port was identified and free from surrounding tissues. Apursestring suture was placed around the catheter tract and the catheterwas then removed in its entirety. Hemostasis was secured by ligation ofthe pursestring suture. The Port-A-Cath was then removed from the subcutaneous pocket that space wasclosed with interrupted 3-0 Vicryl sutures subcutaneous tissue wasapproximated with interrupted 3-0 Vicryl sutures and the skin closed witha running 4-0 Vicryl subcuticular suture. The wound was then sealed with Dermabond and Steri-Strips wereapplied and a Telfa dressing and Tegaderm were applied. I was present throughout the procedure. I was present throughout the procedure. This report was electronically signed by LAURI FELIPE M.D. on 02/21/20134:51 PM . Castillo Max MD IR ORDERABLES * IR CENTRAL LINE REMOVAL (02/21/2013 3:22 PM CDT) Anatomical Region Laterality Modality Other Narrative 02/21/2013 4:51 PM CDT This is an interventional nephrology procedure performed on 02/21/2013 [employer] Baggage: Lauri Felipe Attending: Lauri Felipe Procedures performed: 1. Insertion of PICC line 2. Fluoroscopic guidance for central venous catheter procedure 3. Ultrasound guidance for vascular access with permanent recording 4. Removal of tunneled central venous catheter with subcutaneous port This patient was referred for placement of a PICC Line and removal of an existing Port-A-Cath to continue chemotherapy for lymphoma. Following informed consent the patient was taken to the angiography suite and placed on the fluoroscopy table. The skin of the left upper arm was prepared with chlorhexidine and sterile drapes were applied. Under real-time ultrasound guidance a basilic vein was cannulated with a micropuncture needle and a microfilament wire was advanced to the central veins under fluoroscopic guidance. This wire was utilized to measure an appropriate length of the catheter which in this case was 40 cm. Accordingly a 6 Latvian triple-lumen power PICC line was trimmed to this length and advanced over the guidewire with the aid of the peel-away sheath which was then removed. All lumens flushed easily and were locked with heparinized saline. The catheter was fixed in place with a stat lock device and a sterile CHG dressing was applied. Fluoroscopy confirmed the presence of the catheter tip in the SVC near the right atrium. Attention was then turned to removal of an existing Port-A-Cath. Local anesthetic was infiltrated in the skin and subcutaneous tissues overlying a previously placed a double port and a 1 inch incision was made. Using blunt and sharp dissection and with the aid of electrocautery the subcutaneous port was exposed and the connecting port was identified and free from surrounding tissues. ??A pursestring suture was placed around the catheter tract and the catheter was then removed in its entirety. Hemostasis was secured by ligation of the pursestring suture. The Port-A-Cath was then removed from the subcutaneous pocket that space was closed with interrupted 3-0 Vicryl sutures subcutaneous tissue was approximated with interrupted 3-0 Vicryl sutures and the skin closed with a running 4-0 Vicryl subcuticular suture. The wound was then sealed with Dermabond and Steri-Strips were applied and a Telfa dressing and Tegaderm were applied. I was present throughout the procedure. I was present throughout the procedure. This report was electronically signed by LAURI FELIPE M.D. ??on 02/21/2013 4:51 PM . Procedure Note Lauri Felipe MD - 10/31/2017 This is an interventional nephrology procedure performed on 02/21/2013 [employer] Baggage: Lauri Felipe Attending: Lauri Felipe Procedures performed: 1. Insertion of PICC line 2. Fluoroscopic guidance for central venous catheter procedure 3. Ultrasound guidance for vascular access with permanent recording 4. Removal of tunneled central venous catheter with subcutaneous port This patient was referred for placement of a PICC Line and removal of anexisting Port-A-Cath to continue chemotherapy for lymphoma. Following informed consent the patient was taken to the angiography suiteand placed on the fluoroscopy table. The skin of the left upper arm was prepared with chlorhexidine and steriledrapes were applied. Under real-time ultrasound guidance a basilic veinwas cannulated with a micropuncture needle and a microfilament wire wasadvanced to the central veins under fluoroscopic guidance. This wire was utilized to measure an appropriatelength of the catheter which in this case was 40 cm. Accordingly a 6French triple-lumen power PICC line was trimmed to this length andadvanced over the guidewire with the aid of the peel-away sheath which was then removed. All lumens flushed easily andwere locked with heparinized saline. The catheter was fixed in place witha stat lock device and a sterile CHG dressing was applied. Fluoroscopyconfirmed the presence of the catheter tip in the SVC near the right atrium. Attention was then turned to removal of an existing Port-A-Cath. Local anesthetic was infiltrated in the skin and subcutaneous tissuesoverlying a previously placed a double port and a 1 inch incision wasmade. Using blunt and sharp dissection and with the aid of electrocauterythe subcutaneous port was exposed and the connecting port was identified and free from surrounding tissues. Apursestring suture was placed around the catheter tract and the catheterwas then removed in its entirety. Hemostasis was secured by ligation ofthe pursestring suture. The Port-A-Cath was then removed from the subcutaneous pocket that space wasclosed with interrupted 3-0 Vicryl sutures subcutaneous tissue wasapproximated with interrupted 3-0 Vicryl sutures and the skin closed witha running 4-0 Vicryl subcuticular suture. The wound was then sealed with Dermabond and Steri-Strips wereapplied and a Telfa dressing and Tegaderm were applied. I was present throughout the procedure. I was present throughout the procedure. This report was electronically signed by LAURI FELIPE M.D. on 02/21/20134:51 PM . Castillo Max MD IR ORDERABLES * IR US GUIDE VASCULAR ACCESS (02/21/2013 3:22 PM CDT) Only the most recent of3 resultswithin the time period is included. Anatomical Region Laterality Modality Other Narrative 02/21/2013 4:51 PM CDT This is an interventional nephrology procedure performed on 02/21/2013 [employer] Baggage: Lauri Felipe Attending: Lauri Felipe Procedures performed: 1. Insertion of PICC line 2. Fluoroscopic guidance for central venous catheter procedure 3. Ultrasound guidance for vascular access with permanent recording 4. Removal of tunneled central venous catheter with subcutaneous port This patient was referred for placement of a PICC Line and removal of an existing Port-A-Cath to continue chemotherapy for lymphoma. Following informed consent the patient was taken to the angiography suite and placed on the fluoroscopy table. The skin of the left upper arm was prepared with chlorhexidine and sterile drapes were applied. Under real-time ultrasound guidance a basilic vein was cannulated with a micropuncture needle and a microfilament wire was advanced to the central veins under fluoroscopic guidance. This wire was utilized to measure an appropriate length of the catheter which in this case was 40 cm. Accordingly a 6 Latvian triple-lumen power PICC line was trimmed to this length and advanced over the guidewire with the aid of the peel-away sheath which was then removed. All lumens flushed easily and were locked with heparinized saline. The catheter was fixed in place with a stat lock device and a sterile CHG dressing was applied. Fluoroscopy confirmed the presence of the catheter tip in the SVC near the right atrium. Attention was then turned to removal of an existing Port-A-Cath. Local anesthetic was infiltrated in the skin and subcutaneous tissues overlying a previously placed a double port and a 1 inch incision was made. Using blunt and sharp dissection and with the aid of electrocautery the subcutaneous port was exposed and the connecting port was identified and free from surrounding tissues. ??A pursestring suture was placed around the catheter tract and the catheter was then removed in its entirety. Hemostasis was secured by ligation of the pursestring suture. The Port-A-Cath was then removed from the subcutaneous pocket that space was closed with interrupted 3-0 Vicryl sutures subcutaneous tissue was approximated with interrupted 3-0 Vicryl sutures and the skin closed with a running 4-0 Vicryl subcuticular suture. The wound was then sealed with Dermabond and Steri-Strips were applied and a Telfa dressing and Tegaderm were applied. I was present throughout the procedure. I was present throughout the procedure. This report was electronically signed by LAURI FELIPE M.D. ??on 02/21/2013 4:51 PM . Procedure Note Lauri Felipe MD - 10/31/2017 This is an interventional nephrology procedure performed on 02/21/2013 [employer] Baggage: Lauri Felipe Attending: Lauri Felipe Procedures performed: 1. Insertion of PICC line 2. Fluoroscopic guidance for central venous catheter procedure 3. Ultrasound guidance for vascular access with permanent recording 4. Removal of tunneled central venous catheter with subcutaneous port This patient was referred for placement of a PICC Line and removal of anexisting Port-A-Cath to continue chemotherapy for lymphoma. Following informed consent the patient was taken to the angiography suiteand placed on the fluoroscopy table. The skin of the left upper arm was prepared with chlorhexidine and steriledrapes were applied. Under real-time ultrasound guidance a basilic veinwas cannulated with a micropuncture needle and a microfilament wire wasadvanced to the central veins under fluoroscopic guidance. This wire was utilized to measure an appropriatelength of the catheter which in this case was 40 cm. Accordingly a 6French triple-lumen power PICC line was trimmed to this length andadvanced over the guidewire with the aid of the peel-away sheath which was then removed. All lumens flushed easily andwere locked with heparinized saline. The catheter was fixed in place witha stat lock device and a sterile CHG dressing was applied. Fluoroscopyconfirmed the presence of the catheter tip in the SVC near the right atrium. Attention was then turned to removal of an existing Port-A-Cath. Local anesthetic was infiltrated in the skin and subcutaneous tissuesoverlying a previously placed a double port and a 1 inch incision wasmade. Using blunt and sharp dissection and with the aid of electrocauterythe subcutaneous port was exposed and the connecting port was identified and free from surrounding tissues. Apursestring suture was placed around the catheter tract and the catheterwas then removed in its entirety. Hemostasis was secured by ligation ofthe pursestring suture. The Port-A-Cath was then removed from the subcutaneous pocket that space wasclosed with interrupted 3-0 Vicryl sutures subcutaneous tissue wasapproximated with interrupted 3-0 Vicryl sutures and the skin closed witha running 4-0 Vicryl subcuticular suture. The wound was then sealed with Dermabond and Steri-Strips wereapplied and a Telfa dressing and Tegaderm were applied. I was present throughout the procedure. I was present throughout the procedure. This report was electronically signed by LAURI FELIPE M.D. on 02/21/20134:51 PM . Castillo Max MD IR ORDERABLES * HLA ANTIBODY SCREEN LUM CLASS 1 SAB (02/14/2013 11:45 PM CDT) Only the most recent of3 resultswithin the time period is included. % PRA 44 () [facility] Class 1 LUM SAB Specificity () [facility] Comment: [id number] 0801 1302 1401-64 1402-65 1501/62 1502/75 1503/72 1512/76 1513/77 1516/63 1518/71 1801 2703 2705 2708 3501 3508 3701 3801 3901 4001/60 4101 4201 4501 4701 4801 5001 5101 5201 5301 5501 5601 5701 5801 7301 7801 8101 Class 1 LUM SAB Mod Risk - () [facility] Class 1 LUM SAB Reportable Comments () [facility] Comment: UNACCEPTABLE ANTIGENS FOR PLATELETS:A33, A66, B7, B8, B13, B14, B15, B17 (B57, B58), B18, B27, B35, B37, B38, B39, B40, B41, B42, B45, B47, B48, B50, B51, B52, B53, B55, B56, B57, B58, B73, B78, B81 Tested Date 3 () [facility] Comment: This test was developed and its performance characteristics determined by the [facility]. ??It has not been cleared or approved by the U.S. Food and Drug Administration. ??The FDA has determined that such clearance or approval is not necessary. ??This test is used for clinical purposes. ??It should not be regarded as investigational or for research. This laboratory is certified under the Clinical Laboratory Improvement Amendments of 1988 (CLIA-88) as qualified to perform high complexity clinical laboratory testing. Performed at: ??[facility], [address] [place] [address] @ [place], [place] ??[id number] Marble Cleaner: Daniel Gonzalez MD, 02/14/2013 11:4 5 PM CDT 02/14/2013 11:50 PM CDT Castillo Max MD [facility] Performing Organization Address City/State/[facility] Co de Phone Number [address] [phone] * CULTURE FUNGUS OTHER+FUNGUS SMEAR (02/12/2013 11:00 PM CDT) Culture Fungus-Other NO GROWTH FUNGI. [facility] Nasopharyngeal 02/12/2013 11 :00 PM CDT 02/12/2013 11:06 PM CDT Narrative [facility] - 03/14/2013 9:02 AM CDT SOURCE IS ORAL ULCERS PER EPIC ORDER ADDED CFUN PER PROTOCOL TWO SWABS RECEIVED Castillo Max MD LAB - MICROBIOLOGY ORDERABLES [facility] [address] [phone] * VIRAL CULTURE [facility] (02/12/2013 11:00 PM CDT) Viral Culture General No virus isolated. . [facility] Comment: Performed at: ?? - Lab[address] ??[id number] Marble Cleaner: Kendrick Cardenas MD, Phone: ??[phone] Preliminary Report: No virus isolated at 4 days. ??Next report to follow after 7 days. Performed at: ??[address] ??[id number] Marble Cleaner: Kendrick Cardenas MD, Phone: ??[phone] Preliminary Report: No virus isolated at 24 hours. Next report to follow after 4 days. Performed at: ??[address] ??[id number] Marble Cleaner: Kendrick Cardenas MD, Phone: ??[phone] ? !! ??EDITED OR ??CORRECTED RESULTS !! RESULT PREVIOUSLY REPORTED : ?? Preliminary Report: No virus isolated at 24 hours. Next report to follow after 4 days. Performed at: ??[address] ??[id number] Marble Cleaner: Kendrick Cardenas MD, Phone: ??[phone] NOTIFIED [] AT 1128 ON 02/17/13 ? !! ??EDITED OR ??CORRECTED RESULTS !! RESULT PREVIOUSLY REPORTED : ?? Preliminary Report: No virus isolated at 4 days. ??Next report to follow after 7 days. Performed at: ??[address] ??[id number] Marble Cleaner: Kendrick Cardenas MD, Phone: ??[phone] Preliminary Report: No virus isolated at 24 hours. Next report to follow after 4 days. Performed at: ??[address] ??[id number] Marble Cleaner: Kendrick Cardenas MD, Phone: ??[phone] ? !! ??EDITED OR ??CORRECTED RESULTS !! RESULT PREVIOUSLY REPORTED : ?? Preliminary Report: No virus isolated at 24 hours. Next report to follow after 4 days. Performed at: ?? - LabCo[address] ??[id number] Marble Cleaner: Kendrick Cardenas MD, Phone: ??[phone] NOTIFIED [] AT 1128 ON 02/17/13 NOTIFIED [] AT 0941 ON 02/21/13 Nasopharyngeal (Oral Mucosa/Gingiva) 02/12/2013 11:00 PM CDT 02/12/2013 11:06 PM CDT Narrative [facility] - 02/21/2013 9:41 AM CDT Swab oral ulcers for viral culture please Specimen Type->Nasopharyngeal SPECIMEN SOURCE? NASOPHARYNGEAL Castillo Max MD LAB - MICROBIOLOGY ORDERABLES Performing Organization Address [facility] Co de Phone Number [address] [phone] * FUNGUS SMEAR (02/12/2013 11:00 PM CDT) Fungus Smear NO FUNGI SEEN. [facility] Nasopharyngeal (Unspecified) 02/12/2013 11:00 PM CDT 02/12/2013 11:06 PM CDT [facility] - 02/15/2013 9:15 AM CDT Swab oral ulcers for fungal smear please Specimen Type->Nasopharyngeal SOURCE IS ORAL ULCERS PER EPIC ORDER ADDED CFUN PER PROTOCOL TWO SWABS RECEIVED Castillo Max MD LAB - MICROBIOLOGY ORDERABLES Performing Organization Address [facility] Co de Phone Number [address] [phone] * FIBRIN MONOMER (02/11/2013 6:44 PM CDT) Fibrin Monomer NEGATIVE NEGATIVE [facility] Comment: ?DECR. ?? PROL. ??DECR. ? INCR. ?INCR. ?PLT ? PT ? FIBRIN- ?? FIBRIN ?? D-DIMER ? OGEN ?MONOMER ACUTE DIC ?+ ? + ?+/- ? + ? + SUBACUTE DIC ?? + ? + ?+/- ? - ? + DVT,PE, ? SURGERY ? -/+ ? -/+ ?- ? -/+ ?+ VIT K DEF. ? - ? + ? - ?- ? - LIVER ? DISEASE ? +/- ?+ ?-/+ ?-/+ ? +/- COMMENT: DIC IS A POSSIBLE COMPLICATION OF A NUMBER OF CLINICAL CONDITIONS. ??THE CLASSIC LABORATORY FEATURES OF COMBINED ??THROMBOCYTOPENIA, COAGULOPATHY (DUE TO CONSUMPTION OF LABILE COAGULATION FACTORS) AND INCREASED LEVELS OF SOLUBLE FIBRIN AND FIBRINOGEN/FIBRIN DEGRADATION PRODUCTS ARE GENERALLY SEEN ONLY IN SEVERE,ACUTE DIC. ??SOME OF THE LABORATORY ABNORMALITIES SEEN IN DIC MAY BE OBSERVED WITH EXTENSIVE, LOCALIZED THROMBOSIS AND SEVERE LIVER DISEASE (SEE TABLE). ??FOR FURTHER CONSULTATION, CALL TOOL RENTAL TECHNICIAN (EXT. [phone]). 02/11/2013 6:44 PM CDT 02/11/2013 7:08 PM CDT [facility] - 02/11/2013 9:20 PM CDT IS PATIENT ON HEPARIN? (Y OR N) N Castillo Max MD LAB - COAGULATION ORDERABLES Performing Organization Address [facility] Co de Phone Number [address] [phone] * (ABNORMAL) FIBRINOGEN CLAUSS (02/11/2013 6:44 PM CDT) Fibrinogen Clauss 404(H) 170 - 400 mg/dL [facility] 02/11/2013 6:44 PM CDT 02/11/2013 7:08 PM CDT Narrative [facility] - 02/11/2013 7:36 PM CDT IS PATIENT ON HEPARIN? (Y OR N) N Castillo Max MD LAB - COAGULATION ORDERABLES Performing Organization Address [facility] Co de Phone Number [address] [phone] * BLOOD TYPE ABO+ RH PANEL (02/06/2013 11:50 AM CDT) Only the most recent of7 resultswithin the time period is included. Interpretation ABO/Rh Patient O POS [facility] 02/06/2013 11:5 0 AM CDT 02/06/2013 4:29 PM CDT Castillo Max MD LAB - BLOOD BANK O RDERABLES Performing Organization Address [facility] Co de Phone Number [address] [phone] * ANTIBODY SCREEN (02/06/2013 11:50 AM CDT) Only the most recent of5 resultswithin the time period is included. Antibody Screen NEGATIVE [facility] 02/06/2013 11:5 0 AM CDT 02/06/2013 4:29 PM CDT Castillo Max MD LAB - BLOOD BANK O RDERABLES [address] [phone] * ALT (02/02/2013 5:00 AM CDT) ALT 18 0 - 55 Units/L [facility] Serum 02/02/2013 5:00 AM CDT 02/02/2013 5:21 AM CDT Castillo Max MD LAB - CHEMISTRY OR DERABLES Performing Organization Address [facility]/ZIP Co de Phone Number [address] [phone] * AST BLOOD (02/02/2013 5:00 AM CDT) AST 10 5 - 34 Units/L [facility] Serum 02/02/2013 5:00 AM CDT 02/02/2013 5:21 AM CDT Castillo Max MD LAB - CHEMISTRY OR DERABLES Performing Organization Address [facility] Co de Phone Number [address] [phone] * BILIRUBIN TOTAL BLOOD (02/02/2013 5:00 AM CDT) Bilirubin Total 0.6 0.2 - 1.2 mg/dL [facility] Serum 02/02/2013 5:00 AM CDT 02/02/2013 5:21 AM CDT Castillo Max MD LAB - CHEMISTRY OR DERABLES Performing Organization Address City/[facility] Co de Phone Number [address] [phone] * XR THORACIC SPINE 1VW (01/31/2013 9:00 PM CDT) Anatomical Region Laterality Modality Spine Other Impressions 02/01/2013 11:05 AM CDT Impression: No change. This report was electronically signed by HEMAL FAIRCHILD M.D. ??on 02/01/2013 11:05 AM . Narrative 02/01/2013 11:05 AM CDT Exam: XR SPINE THORACIC 1 VIEW Date: ??01/31/2013 5:45 PM History: ??need erect films, s/p surgery Findings: The spinal fixation rods and screws, extending from the lower cervical spine to the thoracolumbar region, are unchanged in appearance and position. Again noted is the marked wedge compression deformity of the body of T6. No other which compression deformities noted and there is no sign of subluxation at any level. Procedure Note Hemal Fairchild MD - 10/31/2017 Exam: XR SPINE THORACIC 1 VIEW Date: 01/31/2013 5:45 PM History: need erect films, s/p surgery Findings: The spinal fixation rods and screws, extending from the lowercervical spine to the thoracolumbar region, are unchanged in appearanceand position. Again noted is the marked wedge compression deformity of thebody of T6. No other which compression deformities noted and there is no sign of subluxation at anylevel. IMPRESSION Impression: No change. This report was electronically signed by HEMAL FAIRCHILD M.D. on02/01/2013 11:05 AM . Castillo Max MD DIAGNOSTIC IMAGING ORDERABLES * VAS BILATERAL VENOUS DUPLEX LE (01/31/2013 2:25 PM CDT) Anatomical Region Laterality Modality Other Castillo Max MD VASCULAR LAB ORDER GITA * (ABNORMAL) VANCOMYCIN LEVEL TROUGH (01/10/2013 8:30 AM CDT) Only the most recent of3 resultswithin the time period is included. Vancomycin Trough 8.5(L) 10.0 - 20.0 mcg/mL [facility] Comment: TROUGH CONCENTRATIONS IN THE HIGHER END OF THE RANGE (15-20 MCG/ML) ARE RECOMMENDED IN THE TREATMENT OF COMPLICATED INFECTIONS: I.E. ENDOCARDITIS, OSTEOMYELITIS, MENINGITIS, HOSPITAL-ACQUIRED PNEUMONIA. ?? AM [facility]. 2009. ??AUG 02;66(1):82-98. Venous blood specimen (specimen) 01/10/2013 8:30 AM CDT 01/10/2013 8:37 AM CDT Ashish Peralta MD LAB - CHEMISTRY [facility] Performing Organization Address City/[facility]/ZIP Co de Phone Number [address] [phone] * (ABNORMAL) CBC W/O DIFFERENTIAL (12/31/2012 2:30 PM CDT) Only the most recent of4 resultswithin the time period is included. WBC 0.4(LL) 3.5 - 10.5 10^3/uL [facility] Comment: RESULT CONFIRMED BY REPEAT ANALYSIS, CHECKED ?? NOT CALLED 8N RBC 3.02(L) 3.90 - 5.00 10^6/uL [facility] Hemoglobin 8.6(L) 12.0 - 15.5 g/dL [facility] Comment:RESULTS CONFIRMED BY REPEAT ANALYSIS. Hematocrit 24.5(L) 35.0 - 45.0 % [facility] MCV 81.1 81.0 - 97.0 FL [facility] MCH 28.5 28.0 - 34.0 PG [facility] MCHC 35.1 32.0 - 36.0 G/DL [facility] Platelet 8(LL) 150 - 400 10^3/uL [facility] Comment: RESULT CONFIRMED BY REPEAT ANALYSIS, CHECKED ?? NOT CALLED 8N Comment Platelet COMMENT [facility] Comment: WHEN REPORTED, PLT. COUNT HAS BEEN CONFIRMED BY SLIDE REVIEW. RDW 14.5 11.2 - 14.8 % [facility] RDW-SD 42.9 36 - 50 FL [facility] Venous blood specimen (specimen) 12/31/2012 2:30 PM CDT 12/31/2012 2:47 PM CDT Narrative [facility] - 12/31/2012 2:56 PM CDT RN will draw IS PATIENT ON HEPARIN? (Y OR N) N Dylan Dunham MD LAB - HEMATOLOGY MELISSA YADAV Performing Organization Address City/[facility]/ZIP Co de Phone Number [place] [id number], [place] [phone] * CLOSTRIDIUM DIFFICILE [facility] + TOXIN A+B (12/28/2012 9:00 PM CDT) Only the most recent of2 resultswithin the time period is included. [facility] C difficile Toxin Assay POSITIVE FOR [CLOSTRIDIUM DIFFICILE ANTIGEN] AND NEGATIVE FOR CLOSTRIDIUM DIFFICILE TOXIN. ASSAY INDETERMINATE. CONFIRMATORY MOLECULAR TESTING IN PROGRESS. ?REFERENCE RANGE = NEGATIVE. ? [facility] Culture Results [facility] Organism ID CLOSTRIDIUM DIFFICILE ANTIGEN [facility] Stool specimen (specimen) STOOL SPECIMEN / Unknown 12/28/2012 9:00 PM CDT 12/28/2012 10:18 PM CDT Narrative [facility] - 12/29/2012 1:50 PM CDT Specimen Type->Feces Dylan Dunham MD LAB - MICROBIOLOGY O ROSSI Performing Organization Address [facility] Co de Phone Number [address] [phone] * CLOSTRIDIUM DIFFICILE BY PCR (12/28/2012 9:00 PM CDT) [facility] C difficile GILLIAN NEGATIVE. CLOSTRIDIUM DIFFICILE TOXIN GENE IS NOT DETECTED BY NUCLEIC ACID AMPLIFICATION TESTING. ?REFERENCE RANGE = NEGATIVE. [facility] Stool specimen (specimen) 12/28/2012 9:00 PM CDT 12/28/2012 10:18 PM CDT Dylan Dunham MD LAB - MICROBIOLOGY O ROSSI Performing Organization Address [facility] Co de Phone Number [address] [phone] * (ABNORMAL) RETIC COUNT (12/27/2012 1:00 PM CDT) Only the most recent of2 resultswithin the time period is included. [facility] Reticulocyte % 0.1(L) 0.4 - 2.5 % [facility] Comment: * ??PLEASE NOTE NEW REFERENCE RANGE * Reticulocyte Absolute 0.00(L) 0.02 - 0.13 10^6/uL [facility] Comment: * ??PLEASE NOTE NEW REFERENCE RANGE * Venous blood specimen (specimen) 12/27/2012 1:00 PM CDT 12/27/2012 1:12 PM CDT Dylan Dunham MD LAB - HEMATOLOGY ORD ERABLES [address] [phone] * (ABNORMAL) HEPATIC FUNCTION PANEL (12/27/2012 1:00 PM CDT) Only the most recent of27 resultswithin the time period is included. Protein Total 4.9(L) 6.0 - 8.3 g/dL [facility] Albumin 2.7(L) 3.4 - 5.0 g/dL [facility] Bilirubin Total 0.4 0.2 - 1.2 mg/dL [facility] Alkaline Phosphatase 65 40 - 150 Units/L [facility] ALT 16 0 - 55 Units/L [facility] AST 14 5 - 34 Units/L [facility] Albumin/Globulin Ratio 1.2 1.1 - 2.3 [facility] Bilirubin Direct 0.1 0.0 - 0.5 mg/dL [facility] Bilirubin Indirect 0.3 mg/dL [facility] Comment: Unconjugated bilirubin is a calculated value, reference ranges have not been established Venous blood specimen (specimen) 12/27/2012 1:00 PM CDT 12/27/2012 1:12 PM CDT Dylan Dunham MD LAB - CHEMISTRY [facility] Performing Organization Address City/[facility]/ZIP Co de Phone Number [address] [phone] * HAPTOGLOBIN (12/27/2012 1:00 PM CDT) Haptoglobin 113 14 - 258 mg/dL [facility] Venous blood specimen (specimen) 12/27/2012 1:00 PM CDT 12/27/2012 1:12 PM CDT Dylan Dunham MD LAB - CHEMISTRY [facility] Performing Organization Address [facility] Co de Phone Number [address] [phone] * (ABNORMAL) CK + CKMB PANEL (12/25/2012 1:45 AM CDT) CK Total 16(L) 30 - 200 Units/L [facility] CK-MB 0.5 0.0 - 6.6 ng/mL [facility] Comment: ? CKMB Reference Range 6.6 ng/mL or greater = Positive For indeterminate results, additional specimen(s) for CKMB, drawn at least one hour apart, may aid diagnosis. Positive CKMB results should be clinically interpreted in combination with total CK serum level. ??In patients without cardiac muscle damage, CKMB (ng/mL) is generally <2.5% of total CK enzyme activity (Units/L). Virtually all patients with acute myocardial infarction have CKMB values 6.6 ng/mL or greater for samples drawn at least 8-12 hours after the onset of chest pain. ??CKMB values generally remain elevated for 2-3 days. 12/25/2012 1:45 AM CDT 12/25/2012 2:25 AM CDT Dylan Dunham MD LAB - CHEMISTRY [facility] [address] [phone] * IR JORGE CATH INSERT (12/21/2012 10:22 AM CDT) Anatomical Region Laterality Modality Other Narrative 12/21/2012 4:23 PM CDT This is an Interventional Nephrology procedure performed on 12/21/2012 Head Porter Baggage: Lauri Felipe Attending: ??Lauri Felipe Procedures performed: 1. Insertion of tunneled central venous catheter with dual subcutaneous port 2. Fluoroscopic guidance for central venous catheter procedure. 3. Ultrasound guidance for vascular access with permanent recording. This patient was referred for placement of a port-a-cath for chemotherapy for lymphoma Following informed consent the patient was taken to the angiography suite and places on the fluoroscopy table. ??The skin of the left neck and chest was prepared with chlorhexidine and sterile drapes were applied. ??Under real time ultrasound guidance, the left internal jugular vein was accessed with a micropuncture needle and a microfilament wire was advanced to the central veins under fluoroscopic guidance. ??This allowed the placement of a 5 Latvian trocar which in turn allowed the placement of a 0.035 guidewire which was manipulated into the IVC. ??A site for the port was chosen on the chest wall and anesthetized with lidocaine. ??A 1 inch incision was made and a subcutaneous pocket was created by blunt dissection. ??Using a metal tunneling device, the catheter was brought through a subcutaneous tunnel to the venotomy incision and prepared for insertion. ??A peel-away sheath was inserted over the guidewire and the inner stylet was removed. ??The catheter was inserted through the sheath which was then removed. ??The catheter was adjusted for length under fluoroscopy such that the tip was at the junction of the SVC and RA. ??The port was attached and both ports flushed easily and were locked with heparinized saline. ??The subcutaneous tissue was approximated with interrupted 4-0 Vicryl and the incision was closed with a running 4-0 Vicryl subcuticular suture.. ??The wound and the venotomy incision were sealed with Dermabond. ??The port was left accessed. I was present for the entire procedure. This report was electronically signed by LAURI FELIPE M.D. ??on 12/21/2012 4:23 PM . Procedure Note Lauri Felipe MD - 10/31/2017 This is an Interventional Nephrology procedure performed on 12/21/2012 Head Porter Baggage: Lauri Felipe Attending: Lauri Felipe Procedures performed: 1. Insertion of tunneled central venous catheter with dual subcutaneousport 2. Fluoroscopic guidance for central venous catheter procedure. 3. Ultrasound guidance for vascular access with permanent recording. This patient was referred for placement of a port-a-cath for chemotherapyfor lymphoma Following informed consent the patient was taken to the angiography suiteand places on the fluoroscopy table. The skin of the left neck and chestwas prepared with chlorhexidine and sterile drapes were applied. Underreal time ultrasound guidance, the left internal jugular vein was accessed with a micropuncture needle and amicrofilament wire was advanced to the central veins under fluoroscopicguidance. This allowed the placement of a 5 Latvian trocar which in turnallowed the placement of a 0.035 guidewire which was manipulated into the IVC. A site for the port waschosen on the chest wall and anesthetized with lidocaine. A 1 inchincision was made and a subcutaneous pocket was created by bluntdissection. Using a metal tunneling device, the catheter was brought through a subcutaneous tunnel to the venotomyincision and prepared for insertion. A peel-away sheath was inserted overthe guidewire and the inner stylet was removed. The catheter was insertedthrough the sheath which was then removed. The catheter was adjusted for length under fluoroscopy such thatthe tip was at the junction of the SVC and RA. The port was attached andboth ports flushed easily and were locked with heparinized saline. Thesubcutaneous tissue was approximated with interrupted 4-0 Vicryl and the incision was closed witha running 4-0 Vicryl subcuticular suture.. The wound and the venotomyincision were sealed with Dermabond. The port was left accessed. I was present for the entire procedure. This report was electronically signed by LAURI FELIPE M.D. on 12/21/20124:23 PM . Castillo Max MD IR ORDERABLES * BILIRUBIN DIRECT (12/13/2012 3:45 AM CDT) Only the most recent of14 resultswithin the time period is included. Bilirubin Direct 0.2 0.0 - 0.5 mg/dL [facility] Bilirubin Indirect 0.3 mg/dL [facility] Comment: Unconjugated bilirubin is a calculated value, reference ranges have not been established 12/13/2012 3:45 AM CDT 12/13/2012 4:17 AM CDT John Massey MD LAB - CHEMISTRY [facility] Organization Address City/State/ZIP Co de Phone Number [address] [phone] * HLA TYPING DNA LOW RESOLUTION A,B,C (12/12/2012 12:30 PM CDT) ABC DNA A1 02 () [facility] ABC DNA A1 29 () [facility] ABC DNA B1 44 () [facility] ABC DNA B2 - () [facility] ABC DNA BW1 4 () [facility] ABC DNA BW2 - () [facility] ABC DNA C1 05 () [facility] ABC DNA C2 16 () [facility] ABC DNA Comments - () [facility] ABC DNA Methodology SSOP () [facility] ABC DNA Test Date 3 () [facility] Comment: This test was developed and its performance characteristics determined by the [facility]. ??It has not been cleared or approved by the U.S. Food and Drug Administration. ??The FDA has determined that such clearance or approval is not necessary. ??This test is used for clinical purposes. ??It should not be regarded as investigational or for research. This laboratory is certified under the Clinical Laboratory Improvement Amendments of 1988 (CLIA-88) as qualified to perform high complexity clinical laboratory testing. Performed at: ??[facility], [address] [place] [address] ??[id number] Marble Cleaner: Daniel Gonzalez MD, Line 12/12/2012 12:3 0 PM CDT 12/12/2012 12:37 PM CDT John Massey MD LAB - BLOOD BANK ORD ERABLES Performing Organization Address City/[facility]/ZIP Co de Phone Number [address] [phone] * (ABNORMAL) PLATELET ANTIBODY PANEL (12/12/2012 11:00 AM CDT) Pathologist [facility] HLA Class 1 Antibody Screen Positive(A) Negative [facility] IIb/IIIa Antibody Negative Negative [facility] Ib/IX Antibody Negative Negative [facility] Ia/IIa Antibody Negative Negative [facility] Comment: Performed at: ?? - [facility] ??[id number] Marble Cleaner: Kendrick Cardenas MD, Phone: ??[phone] Blood specimen (specimen) (Line) 12/12/2012 11:00 AM CDT 12/14/2012 1:05 PM CDT John Massey MD LAB - CHEMISTRY ORDE RABLES Performing Organization Address [facility] Co de Phone Number [address] [phone] * UREA NITROGEN URINE RANDOM (12/04/2012 2:00 PM CDT) Pathologist [facility] Urea Nitrogen Random Urine 557 mg/dL [facility] Comment: REFERENCE RANGE: NONE ESTABLISHED FOR RANDOM URINE SPECIMENS. Urine specimen (specimen) 12/04/2012 2:00 PM CDT 12/04/2012 2:35 PM CDT John Massey MD LAB - URINE CHEMISTR Y ORDERABLES Performing Organization Address City/[facility]/ZIP Co de Phone Number [address] [phone] * POTASSIUM URINE RANDOM (12/04/2012 2:00 PM CDT) Potassium Urine 17 mmol/L [facility] Comment: REFERENCE RANGE: NONE ESTABLISHED FOR RANDOM URINE SPECIMENS. Urine specimen (specimen) 12/04/2012 2:00 PM CDT 12/04/2012 2:35 PM CDT John Massey MD LAB - URINE CHEMISTR Y ORDERABLES Performing Organization Address [facility] Co de Phone Number [address] [phone] * CALCIUM URINE RANDOM (12/04/2012 2:00 PM CDT) Calcium Random Urine 20.0 mg/dL [facility] Comment: REFERENCE RANGE: NONE ESTABLISHED FOR RANDOM URINE SPECIMENS. Urine specimen (specimen) 12/04/2012 2:00 PM CDT 12/04/2012 2:35 PM CDT John Massey MD LAB - URINE CHEMISTR Y ORDERABLES Performing Organization Address [facility] de Phone Number [address] [phone] * CREATININE URINE RANDOM (12/04/2012 2:00 PM CDT) Creatinine Random Urine 60 mg/dL [facility] Comment: REFERENCE RANGE: NONE ESTABLISHED FOR RANDOM URINE SPECIMENS. Urine specimen (specimen) 12/04/2012 2:00 PM CDT 12/04/2012 2:35 PM CDT John Massey MD LAB - URINE CHEMISTR Y ORDERABLES Performing Organization Address [facility] Number [address] [phone] * CHLORIDE URINE RANDOM (12/04/2012 2:00 PM CDT) Chloride Random Urine 131 mmol/L [facility] Comment: REFERENCE RANGE: NONE ESTABLISHED FOR RANDOM URINE SPECIMENS. Urine specimen (specimen) 12/04/2012 2:00 PM CDT 12/04/2012 2:35 PM CDT John Massey MD LAB - URINE CHEMISTR Y ORDERABLES [facility] [address] [place] [address] * XR SCOLIOSIS 1VW (11/28/2012 5:13 PM CDT) Anatomical Region Laterality Modality Spine Other Impressions 11/30/2012 10:09 AM CDT Impression: 1. Status post C6-T12 posterior spinal fusion for T6 vertebral plana without evidence of hardware failure. No other compression deformities are identified. 2. No spinal scoliosis. Reported dictated by Austyn Arvizu MD (transporter radiology). Dr. Hollis Muller M.D. have personally reviewed and interpreted this examination/study. This report was electronically signed by Hollis GALINDO M.D. ??on 11/30/2012 10:09 AM . Narrative 11/30/2012 10:09 AM CDT Spine scoliosis standing, 2 views History: Tumor Comparison: None Findings: The patient is status post C6-T12 posterior spinal fusion for T6 vertebral plana. There is no evidence of hardware failure. The remaining vertebral bodies are normal in height. There are 12 rib-bearing thoracic vertebrae and 5 non-rib bearing lumbar vertebrae. A posterior mediastinal mass is not appreciated on this exam. The lungs are clear. Mildly dilated, nonspecific loops of bowel are noted in the abdomen. An intrauterine device is noted. The patient is wearing a lower back brace. Spinal curvature is insufficient to require measurements. Known metastatic disease of the axial and appendicular skeleton is better appreciated on prior CT and PET/CT. Procedure Note Denise Galindo MD - 10/31/2017 Spine scoliosis standing, 2 views History: Tumor Comparison: None Findings: The patient is status post C6-T12 posterior spinal fusion for [id number] plana. There is no evidence of hardware failure. The remainingvertebral bodies are normal in height. There are 12 rib-bearing thoracicvertebrae and 5 non-rib bearing lumbar vertebrae. A posterior mediastinal mass is not appreciated on thisexam. The lungs are clear. Mildly dilated, nonspecific loops of bowel arenoted in the abdomen. An intrauterine device is noted. The patient iswearing a lower back brace. Spinal curvature is insufficient to require measurements. Known metastaticdisease of the axial and appendicular skeleton is better appreciated onprior CT and PET/CT. IMPRESSION Impression: 1. Status post C6-T12 posterior spinal fusion for T6 vertebral planawithout evidence of hardware failure. No other compression deformities areidentified. 2. No spinal scoliosis. Reported dictated by Austyn Arvizu MD (transporter radiology). I, Dr. Hollis GALINDO M.D. have personally reviewed and interpreted thisexamination/study. This report was electronically signed by Hollis GALINDO M.D. on11/30/2012 10:09 AM . John Massey MD DIAGNOSTIC IMAGING O RDERABLES * (ABNORMAL) LUPUS ANTICOAGULANT PANEL (11/19/2012 5:45 AM CDT) APTT 44.7(H) 24.0 - 38.[address] [facility] PT 17.5(H) 12.1 - 14.[address] [facility] INR 1.4 [facility] STACLOT-LA Buffer 69.1 SECONDS [facility] [place] Phospholipid 46.9 SECONDS [facility] [place] LA Delta Seconds 22.2(H) <9.[address] [facility] Interpretation STACLOT-LA POSITIVE( A) NEGATIVE [facility] Comment: LA WHICH GENERALLY IS NOT ASSOCIATED WITH ABNORMAL BLEEDING MAY OCCUR IN COMBINATION WITH AND MASK A FACTOR VIII-INHIBITOR WHICH MAY INCREASE THE RISK OF ABNORMAL BLEEDING. ??IN SUCH CASES, THE APTT RATIO IS GENERALLY >1.5 AND FACTOR VIII:C IS USUALLY MARKEDLY DECREASED AND DOES NOT NORMALIZE WITH TEST PLASMA DILUTION. ??LA ARE FREQUENTLY ASSOCIATED WITH MILD PROLONGATION OF PT. ??WITH MODERATE TO MARKED PT PROLONGATION (INR>1.5), A FACTOR II DEFICIENCY SHOULD BE RULED OUT SINCE THIS MAY PREDISPOSE TO ABNORMAL BLEEDING. ??LA / INCREASED JOSEPH ARE OFTEN TRANSIENT AND PERIODIC RETESTING AT 6-12 MONTH INTERVALS IS RECOMMENDED. 11/19/2012 5:45 AM CDT 11/19/2012 5:54 AM CDT John Massey MD LAB - HEMATOLOGY ORD ERABLES Performing Organization Address City/[facility]/[place] [address], [facility] [phone] * FABIANA VIPER VENOM DILUTE (11/19/2012 5:45 AM CDT) LA-DRVVT Screen 0.9 <1.2 [facility] Interpretation Dilute RVV NEGATIVE NEGATIVE [facility] 11/19/2012 5:45 AM CDT 11/19/2012 5:54 AM CDT John Massey MD LAB - COAGULATION OR DERABLES Performing Organization Address [facility] Co de Phone Number [address] [phone] * XR ABD OBSTRUCTION SERIES 2VW (11/18/2012 12:49 PM CDT) Anatomical Region Laterality Modality Abdomen Other Impressions 2012 1:49 PM CDT IMPRESSION: Multiple loops of dilated bowel, primarily colon with air-fluid levels. The findings likely represent postoperative ileus. Findings were discussed with Dr. Alas of the primary team on 11/18/2012 at 3:04 PM Report dictated by Earnest Root MD (resident). I, Dr. YVES MARX M.D. have personally reviewed and interpreted this examination/study. This report was electronically signed by YVES MARX M.D. ??on 2012 1:49 PM . Narrative 2012 1:49 PM CDT EXAM: Abdominal obstruction series HISTORY: Abdominal distention, postoperative, excessive MAIL MESSENGER pump use COMPARISON: None available FINDINGS: There are multiple loops of dilated bowel, primarily colon with air-fluid levels. Transverse colon measures up to 9.5 CM. Gas appears to extend to the rectum. No free air or pneumatosis is seen. The patient is status post posterior spinal fusion with midline surgical carmen. No acute osseous abnormalities are seen. An intrauterine device is present. Procedure Note Yves Marx MD - 10/31/2017 EXAM: Abdominal obstruction series HISTORY: Abdominal distention, postoperative, excessive MAIL MESSENGER pump use COMPARISON: None available FINDINGS: There are multiple loops of dilated bowel, primarily colon with air-fluidlevels. Transverse colon measures up to 9.5 CM. Gas appears to extend tothe rectum. No free air or pneumatosis is seen. The patient is status post posterior spinal fusion with midline surgicalstaples. No acute osseous abnormalities are seen. An intrauterine deviceis present. IMPRESSION IMPRESSION: Multiple loops of dilated bowel, primarily colon with air-fluid levels.The findings likely represent postoperative ileus. Findings were discussed with Dr. Alas of the primary team on 11/18/2012t 3:04 PM Report dictated by Earnest Root MD (resident). I, Dr. YVES MARX M.D. have personally reviewed and interpreted thisexamination/study. This report was electronically signed by YVES MARX M.D. on 11/22/20121:49 PM . John Massey MD DIAGNOSTIC IMAGING O RDERABLES * VITAMIN K1 (11/18/2012 12:00 AM CDT) Vitamin K 1.91 0.10 - 2.20 ng/mL [facility] BLOOD SPECIMEN / Unknown 11/18/2012 11/18/2012 1:39 AM CDT John Massey MD LAB - CHEMISTRY ORDE HOLLI [address] [phone] * (ABNORMAL) FACTOR X ASSAY (11/18/2012 12:00 AM CDT) Factor X Abn Pt Evaluation 67(L) 75 - 180 U/DL [facility] 11/18/2012 11/18/2012 1:3 9 AM CDT John Massey MD LAB - COAGULATION OR DERABLES [address] [phone] * FACTOR VII ASSAY (11/18/2012 12:00 AM CDT) Factor VII Activity 81 65 - 190 U/DL [facility] Plasma specimen (specimen) BLOOD SPECIMEN / Unknown 11/18/2012 11/18/2012 1:39 AM CDT John Massey MD LAB - COAGULATION OR DERABLES Performing Organization Address [facility] Co de Phone Number [address] [phone] * FACTOR II ASSAY (11/18/2012 12:00 AM CDT) Factor II Activity 78 75 - 155 U/DL [facility] Comment: FACTORII 1:20=84 ? 1:40=81 FACTOR VII 1:20=78 ? 1:40=77 FACTOR X 1:20=65 ? 1:40=66 FACTOR ??1:81=603 Plasma specimen (specimen) BLOOD SPECIMEN / Unknown 11/18/2012 11/18/2012 1:39 AM CDT John Massey MD LAB - COAGULATION OR DERABLES Performing Organization Address [facility] Co de Phone Number [address] [phone] * (ABNORMAL) FACTOR IX ASSAY (11/18/2012 12:00 AM CDT) Factor IX Activity 215(H) 60 - 150 U/DL [facility] Plasma specimen (specimen) BLOOD SPECIMEN / Unknown 11/18/2012 11/18/2012 1:39 AM CDT Narrative [facility] - 11/18/2012 9:48 AM CDT Is this a pre or post-infusion?->NA John Massey MD LAB - COAGULATION OR DERABLES Performing Organization Address [facility] de Phone Number [address] [phone] * (ABNORMAL) PT MIX 08/02 (11/16/2012 5:07 PM CDT) APTT 79.5(H) 24.0 - 38.0 SECONDS [facility] PT 31.6(H) 12.1 - 14.8 SECONDS [facility] INR 3.1 [facility] Dilute Prothrombin Time Index 0.73 <1.31 [facility] Interpretation dPT NEGATIVE NEGATIVE [facility] Plasma specimen (specimen) 11/16/2012 5:07 PM CDT 11/16/2012 5:07 PM CDT John Massey MD LAB - COAGULATION OR DERABLES Performing Organization Address [facility] de Phone Number [address] [phone] * THROMBIN TIME (11/16/2012 5:07 PM CDT) Pathologist [facility] Thrombin Time 16.6 16.2 - 21.9 SECONDS [facility] 11/16/2012 5:07 PM CDT 11/16/2012 5:07 PM CDT John Massey MD LAB - COAGULATION OR DERABLES Performing Organization Address [facility] de Phone Number [address] [phone] * PREPARE FFP UNIT(S) (11/14/2012 10:45 PM CDT) Blood Product [id number] ?O+ ?FFP-T ? TRANSFUSED ? 11/14/12 2310 ?? [id number] ?O+ ?FFP-T ? TRANSFUSED ? 11/15/12 0111 ?? [facility] 11/14/2012 10:4 5 PM CDT 11/14/2012 10:45 PM CDT John Massey MD LAB - BLOOD BANK ORD ERABLES Performing Organization Address City/[facility]/ZIP Co de Phone Number [address] [phone] * (ABNORMAL) URINALYSIS DIPSTICK AUTO (11/14/2012 9:00 PM CDT) Color UA ORANGE(A) STRW,YELLOW [facility] Clarity UA HAZY(A) CLEAR [facility] Specific Matthews Urine 1.015 1.001 - 1.030 [facility] pH UA 6.5 5.0 - 8.0 [facility] Protein UA 30(A) <20 mg/dL [facility] Glucose UA NEGATIVE NEGATIVE mg/dL [facility] Ketones NEGATIVE NEGATIVE mg/dL [facility] Bilirubin UA NEGATIVE NEGATIVE mg/dL [facility] Blood UA NEGATIVE NEGATIVE [facility] Nitrite UA NEGATIVE NEGATIVE [facility] Leukocyte Esterase NEGATIVE NEGATIVE [facility] Urobilinogen UA < 2.0 <2.0 mg/dL [facility] Urine specimen (specimen) URINE SPECIMEN COLLECTION, CATHETERIZED / Unknown 11/14/2012 9:00 PM CDT 11/15/2012 12:10 AM CDT Narrative [facility] - 11/15/2012 12:36 AM CDT Per ernesto protocol Reji Virk MD LAB - URINALYSIS ORD ERABLES Performing Organization Address [facility]/ZIP Co de Phone Number [address] [phone] * LACTIC ACID WHOLE BLOOD (11/14/2012 6:31 PM CDT) Only the most recent of2 resultswithin the time period is included. Lactic Acid-Stat 0.7 0.5 - 3.4 mmol/L [facility] 11/14/2012 6:31 PM CDT 11/14/2012 6:31 PM CDT Reji Virk MD LAB - CHEMISTRY [facility] [address] [phone] * (ABNORMAL) CHLORIDE WHOLE BLOOD (11/14/2012 6:31 PM CDT) Only the most recent of2 resultswithin the time period is included. Whole Blood CL 112(H) 101 - 111 MMOL/L [facility] 11/14/2012 6:31 PM CDT 11/14/2012 6:31 PM CDT Reji Virk MD LAB - CHEMISTRY [facility] Performing Organization Address [facility] Co de Phone Number [address] [phone] * (ABNORMAL) CALCIUM IONIZED WHOLE BLOOD (11/14/2012 6:31 PM CDT) Only the most recent of2 resultswithin the time period is included. Ionized Calcium Whole Blood 1.08 MMOL/L [facility] Whole Blood PH 7.29(L) 7.35 - 7.45 [facility] Adjusted Ionized Calcium 1.02(L) 1.19 - 1.34 mmol/L [facility] 11/14/2012 6:31 PM CDT 11/14/2012 6:31 PM CDT Reji Virk MD LAB - CHEMISTRY [facility] Performing Organization Address City/[facility]/ZIP Co de Phone Number [address] [phone] * POTASSIUM WHOLE BLD (11/14/2012 6:31 PM CDT) Only the most recent of2 resultswithin the time period is included. Potassium 4.9 3.5 - 5.5 mmol/L [facility] 11/14/2012 6:31 PM CDT 11/14/2012 6:31 PM CDT Reji Virk MD LAB - CHEMISTRY [facility] [address] [phone] * (ABNORMAL) SODIUM WHOLE BLOOD (11/14/2012 6:31 PM CDT) Only the most recent of2 resultswithin the time period is included. Sodium Whole Blood 129(L) 135 - 145 mmol/L [facility] 11/14/2012 6:31 PM CDT 11/14/2012 6:31 PM CDT Reji Virk MD LAB - CHEMISTRY [facility] Performing Organization Address City/[facility]/ZIP Co de Phone Number [address] [phone] * (ABNORMAL) BLOOD GASES ART (11/14/2012 6:31 PM CDT) Only the most recent of2 resultswithin the time period is included. pH Arterial 7.29(L) 7.35 - 7.45 [facility] pCO2 Arterial 40 35 - 45 mmHg [facility] pO2 Arterial 186(H) 77 - 101 mmHg [facility] HCO3 Arterial 18.5(L) 22 - 26 mEq/L [facility] TCO2 Arterial 19.7(L) 25 - 29 mEq/L [facility] Base Excess Arterial -7.1(L) -2 - 2 [facility] Hemoglobin Arterial 10.4(L) 12.0 - 15.5 g/dL [facility] Oxyhemoglobin Arterial 95.1 95.0 - 100.0 % [facility] Carboxyhemoglobin 2.8 0 - 3 % [facility] Methemoglobin 1.6 0 - 2.0 % [facility] FI O2 Arterial 21 [facility] 11/14/2012 6:31 PM CDT 11/14/2012 6:31 PM CDT Reji Virk MD LAB - BLOOD GASES OR DERABLES Performing Organization Address [facility] Co de Phone Number [address] [phone] * (ABNORMAL) GLUCOSE WHOLE BLOOD (11/14/2012 6:31 PM CDT) Only the most recent of2 resultswithin the time period is included. Glucose 181(H) 70 - 110 mg/dL [facility] 11/14/2012 6:31 PM CDT 11/14/2012 6:31 PM CDT Reji Virk MD LAB - CHEMISTRY ORDE RABLES Performing Organization Address [facility] Co de Phone Number [address] [phone] * (ABNORMAL) FIBRINOGEN ACTIVITY (11/14/2012 6:30 PM CDT) Fibrinogen Clauss 407(H) 170 - 400 mg/dL [facility] 11/14/2012 6:30 PM CDT 11/14/2012 6:58 PM CDT Hemal Brand MD LAB - COAGULATION OR DERABLES Performing Organization Address [facility] Co de Phone Number [address] [phone] * CULTURE SPUTUM+GRAM STAIN (11/11/2012 6:00 AM CDT) Gram Stain MANY POLYMORPHONUCLEAR CELLS; RARE YEAST SEEN. GRAM STAINS ARE ROUTINELY SCREENED FOR THE PRESENCE OF POLYMORPHONUCLEAR CELLS. [facility] Culture Results [facility] Culture Sputum and Smear LIGHT GROWTH OF YEAST. [facility] Culture Results [facility] Sputum specimen (specimen) 11/11/2012 6:00 AM CDT 11/11/2012 6:15 AM CDT Narrative [facility] - 11/13/2012 1:11 PM CDT Specimen Type->Sputum John Massey MD LAB - MICROBIOLOGY O ROSSI Performing Organization Address [facility]/ZIP Co de Phone Number [address] [phone] * HCG BLOOD QUALITATIVE (11/10/2012 7:35 AM CDT) NEGATIVE NEGATIVE [facility] Comment:PERFORMED BY: MEERA SAL 11/10/2012 7:35 AM CDT 11/10/2012 7:38 AM CDT John Massey MD LAB - CHEMISTRY [facility] Performing Organization Address [facility] Co de Phone Number [address] [phone] * CULTURE MRSA (11/07/2012 5:45 PM CDT) Only the most recent of2 resultswithin the time period is included. Culture MRSA Screen NO GROWTH OF METHICILLIN RESISTANT STAPHYLOCOCCUS AUREUS. [facility] Nasal TISSUE SPECIMEN FROM AXILLA / Unknown 11/07/2012 5:45 PM CDT 11/07/2012 6:18 PM CDT Narrative [facility] - 11/09/2012 12:25 PM CDT Specimen Type->Nasal Swab AXILLA John Massey MD LAB - MICROBIOLOGY O ROSSI Performing Organization Address [facility]/ZIP Co de Phone Number [address] [phone] * XR PANOREX (11/05/2012 3:36 PM CDT) Anatomical Region Laterality Modality Head Other Impressions 11/06/2012 10:25 AM CDT Impression: Comparison is not available ??. Multiple teeth are missing. Multiple dental fillings are visible. There is a small periapical lucency adjacent to the first left mandibular molar and may represent a small periapical abscess. The visualized portions of the mandible are intact. This report was dictated by Karolina Almanzar M.D. I, Dr. SANDRA ALVARADO M.D. have personally reviewed and interpreted this examination/study. This report was electronically signed by SANDRA ALVARADO M.D. ??on 11/06/2012 10:25 AM . Narrative 11/06/2012 10:25 AM CDT Exam: XR PANOREX Date: 11/05/2012 History: Dental abscess Procedure Note Sandra Alvarado MD - 10/31/2017 Exam: XR PANOREX Date: 11/05/2012 History: Dental abscess IMPRESSION Impression: Comparison is not available . Multiple teeth are missing.Multiple dental fillings are visible. There is a small periapical lucencyadjacent to the first left mandibular molar and may represent a smallperiapical abscess. The visualized portions of the mandible are intact. This report was dictated by Karolina Almanzar M.D. I, Dr. SANDRA ALVARADO M.D. have personally reviewed and interpreted thisexamination/study. This report was electronically signed by SANDRA ALVARADO M.D. on 11/06/201210:25 AM . John Massey MD DIAGNOSTIC IMAGING O RDERABLES * CYTOGENETICS CANCER PANEL (11/04/2012 4:55 PM CDT) Only the most recent of2 resultswithin the time period is included. Chromosome Bone Marrow RESULTS FINAL [facility] Comment: * ASSAY PERFORMED BY: [facility] * ? [id number] ? [place] [address] REFER TO PATHOLOGY/CYTOLOGY REPORT FOR ORIGINAL REPORT AND INTERPRETATION. 11/04/2012 4:55 PM CDT 11/04/2012 5:19 PM CDT John Massey MD LAB - PATHOLOGY/CYTO LOGY ORDERABLES [facility] [address] [place] [address], [facility] [phone] * CHROMOSOME ANALYSIS BLOOD PANEL (11/04/2012 4:55 PM CDT) Fluorescent In-Situ Hybridization RESULTS FINAL [facility] Comment: * ASSAY PERFORMED BY: [facility] * ? [address] [facility] ? [place] [address] REFER TO PATHOLOGY/CYTOLOGY REPORT FOR ORIGINAL REPORT AND INTERPRETATION. 11/04/2012 4:55 PM CDT 11/04/2012 5:19 PM CDT John Massey MD LAB - PATHOLOGY/CYTO LOGY ORDERABLES [facility] [address] [place] [address], [facility] [phone] * MRI LUMBAR SPINE WWO CONTRAST (11/04/2012 2:58 PM CDT) Anatomical Region Laterality Modality Spine Other Impressions 11/04/2012 4:01 PM CDT IMPRESSION: 1. Multifocal spinal metastases involving C6, T4, T5, T6, T7, T11, T12, L1, L2, L4, and L5. Also a focus of metastatic disease in the left iliac bone. This is causing pathologic compression fracture/vertebra plana of T6. 2. There is no significant central canal stenosis, no cord compression or abnormal cord signal. 3. Large posterior mediastinal lymphadenopathy. This report was approved ??by Misha Maldonado M.D. ?? on 11/04/2012 4:00 PM . I, Dr. RAVI GUZMAN M.D. have personally reviewed and interpreted this examination/study. This report was electronically signed by RAVI GUZMAN M.D. ??on 11/04/2012 4:01 PM . Narrative 11/04/2012 4:01 PM CDT EXAMINATION: Magnetic resonance imaging (MRI) of the cervical, thoracic, and lumbar spine without and with contrast HISTORY: Hodgkin's lymphoma with spine lesions TECHNIQUE: MRI of the cervical, thoracic, and lumbar spine was performed prior to and following the uneventful administration of 50 mL MultiHance intravenous contrast according to standard protocol. FINDINGS: Comparison is made with a study from 09/29/2012, CT thoracic spine Cervical spine: There is abnormal STIR hyperintensity and enhancement in the C6 vertebral body nearly replacing the entire vertebral body bone marrow representing metastatic disease. The alignment is normal. ??The craniocervical junction and visualized portions of the posterior fossa appear normal. The spinal cord appears normal. There are mild multilevel degenerative changes without central canal stenosis or neural foraminal stenosis. No soft tissue abnormality is identified. Thoracic spine: There is vertebral plana at T6 with minimal retropulsion of the vertebral body. The collapsed T6 vertebral body and posterior elements shows abnormal enhancement with extension of enhancing material into the epidural space at this level representing metastatic disease. The vertebral bodies of T5 and T7 show near complete marrow replacement with enhancing metastatic disease which extends into the posterior elements at these levels as well. Small foci of enhancement are seen in T4, T11 and T12 representing metastatic lesions. There is an acute kyphosis centered about the T6 vertebra plana. The spinal cord appears normal. The intervertebral discs appear normal. No central canal stenosis is seen. The facets appear normal. No neural foraminal stenosis is seen. There large posterior mediastinal lymphadenopathy which measures 6.5 cm. Lumbar spine: There is abnormal foci of enhancement in the L1, two foci in L2, and a small focus in L4 representing metastatic disease. There is near complete marrow replacement and L5 representing metastatic disease. There is also a small focus of enhancement representing metastatic disease in the left iliac bone. The alignment is normal. Vertebral bodies are normal in height without evidence of compression fractures. The conus medullaris is at the level of L1 and the distal spinal cord appears normal. There is abnormal enhancement of the interspinous ligaments at L4-L5 of uncertain etiology. There is mild multilevel degenerative disc disease at L3-L4, L4-L5, and L5-S1 without central canal stenosis or neural foraminal stenosis. Procedure Note Ravi Guzman MD - 10/31/2017 EXAMINATION: Magnetic resonance imaging (MRI) of the cervical, thoracic,and lumbar spine without and with contrast HISTORY: Hodgkin's lymphoma with spine lesions TECHNIQUE: MRI of the cervical, thoracic, and lumbar spine was performedprior to and following the uneventful administration of 50 mL MultiHanceintravenous contrast according to standard protocol. FINDINGS: Comparison is made with a study from 09/29/2012, CT thoracicspine Cervical spine: There is abnormal STIR hyperintensity and enhancement in the C6 vertebralbody nearly replacing the entire vertebral body bone marrow representingmetastatic disease. The alignment is normal. The craniocervical junction and visualizedportions of the posterior fossa appear normal. The spinal cord appearsnormal. There are mild multilevel degenerative changes without central canalstenosis or neural foraminal stenosis. No soft tissue abnormality isidentified. Thoracic spine: There is vertebral plana at T6 with minimal retropulsion of the vertebralbody. The collapsed T6 vertebral body and posterior elements showsabnormal enhancement with extension of enhancing material into theepidural space at this level representing metastatic disease. The vertebral bodies of T5 and T7 show near completemarrow replacement with enhancing metastatic disease which extends intothe posterior elements at these levels as well. Small foci of enhancementare seen in T4, T11 and T12 representing metastatic lesions. There is an acute kyphosis centered about the T6 vertebra plana. Thespinal cord appears normal. The intervertebral discs appear normal. No central canal stenosis is seen.The facets appear normal. No neural foraminal stenosis is seen. Therelarge posterior mediastinal lymphadenopathy which measures 6.5 cm. Lumbar spine: There is abnormal foci of enhancement in the L1, two foci in L2, and asmall focus in L4 representing metastatic disease. There is near completemarrow replacement and L5 representing metastatic disease. There is also a small focus of enhancement representing metastatic diseasein the left iliac bone. The alignment is normal. Vertebral bodies are normal in height withoutevidence of compression fractures. The conus medullaris is at the level ofL1 and the distal spinal cord appears normal. There is abnormalenhancement of the interspinous ligaments at L4-L5 of uncertain etiology. There is mild multilevel degenerative disc disease at L3-L4, L4-L5, andL5-S1 without central canal stenosis or neural foraminal stenosis. IMPRESSION IMPRESSION: 1. Multifocal spinal metastases involving C6, T4, T5, T6, T7, T11, T12,L1, L2, L4, and L5. Also a focus of metastatic disease in the left iliacbone. This is causing pathologic compression fracture/vertebra plana ofT6. 2. There is no significant central canal stenosis, no cord compression orabnormal cord signal. 3. Large posterior mediastinal lymphadenopathy. This report was approved by Misha Maldonado M.D. on 11/04/2012 4:[address] RAVI Muller M.D. have personally reviewed and interpreted thisexamination/study. This report was electronically signed by RAVI GUZMAN M.D. on 11/04/20124:01 PM . John Massey MD MR ORDERABLES * MRI THORACIC SPINE WWO CONT (11/04/2012 2:58 PM CDT) Anatomical Region Laterality Modality Spine Other Impressions 11/04/2012 4:01 PM CDT IMPRESSION: 1. Multifocal spinal metastases involving C6, T4, T5, T6, T7, T11, T12, L1, L2, L4, and L5. Also a focus of metastatic disease in the left iliac bone. This is causing pathologic compression fracture/vertebra plana of T6. 2. There is no significant central canal stenosis, no cord compression or abnormal cord signal. 3. Large posterior mediastinal lymphadenopathy. This report was approved ??by Misha Maldonado M.D. ?? on 11/04/2012 4:00 PM . Renzo, Dr. RAVI GUZMAN M.D. have personally reviewed and interpreted this examination/study. This report was electronically signed by RAVI GUZMAN M.D. ??on 11/04/2012 4:01 PM . Narrative 11/04/2012 4:01 PM CDT EXAMINATION: Magnetic resonance imaging (MRI) of the cervical, thoracic, and lumbar spine without and with contrast HISTORY: Hodgkin's lymphoma with spine lesions TECHNIQUE: MRI of the cervical, thoracic, and lumbar spine was performed prior to and following the uneventful administration of 50 mL MultiHance intravenous contrast according to standard protocol. FINDINGS: Comparison is made with a study from 09/29/2012, CT thoracic spine Cervical spine: There is abnormal STIR hyperintensity and enhancement in the C6 vertebral body nearly replacing the entire vertebral body bone marrow representing metastatic disease. The alignment is normal. ??The craniocervical junction and visualized portions of the posterior fossa appear normal. The spinal cord appears normal. There are mild multilevel degenerative changes without central canal stenosis or neural foraminal stenosis. No soft tissue abnormality is identified. Thoracic spine: There is vertebral plana at T6 with minimal retropulsion of the vertebral body. The collapsed T6 vertebral body and posterior elements shows abnormal enhancement with extension of enhancing material into the epidural space at this level representing metastatic disease. The vertebral bodies of T5 and T7 show near complete marrow replacement with enhancing metastatic disease which extends into the posterior elements at these levels as well. Small foci of enhancement are seen in T4, T11 and T12 representing metastatic lesions. There is an acute kyphosis centered about the T6 vertebra plana. The spinal cord appears normal. The intervertebral discs appear normal. No central canal stenosis is seen. The facets appear normal. No neural foraminal stenosis is seen. There large posterior mediastinal lymphadenopathy which measures 6.5 cm. Lumbar spine: There is abnormal foci of enhancement in the L1, two foci in L2, and a small focus in L4 representing metastatic disease. There is near complete marrow replacement and L5 representing metastatic disease. There is also a small focus of enhancement representing metastatic disease in the left iliac bone. The alignment is normal. Vertebral bodies are normal in height without evidence of compression fractures. The conus medullaris is at the level of L1 and the distal spinal cord appears normal. There is abnormal enhancement of the interspinous ligaments at L4-L5 of uncertain etiology. There is mild multilevel degenerative disc disease at L3-L4, L4-L5, and L5-S1 without central canal stenosis or neural foraminal stenosis. Procedure Note Ravi Guzman MD - 10/31/2017 EXAMINATION: Magnetic resonance imaging (MRI) of the cervical, thoracic,and lumbar spine without and with contrast HISTORY: Hodgkin's lymphoma with spine lesions TECHNIQUE: MRI of the cervical, thoracic, and lumbar spine was performedprior to and following the uneventful administration of 50 mL MultiHanceintravenous contrast according to standard protocol. FINDINGS: Comparison is made with a study from 09/29/2012, CT thoracicspine Cervical spine: There is abnormal STIR hyperintensity and enhancement in the C6 vertebralbody nearly replacing the entire vertebral body bone marrow representingmetastatic disease. The alignment is normal. The craniocervical junction and visualizedportions of the posterior fossa appear normal. The spinal cord appearsnormal. There are mild multilevel degenerative changes without central canalstenosis or neural foraminal stenosis. No soft tissue abnormality isidentified. Thoracic spine: There is vertebral plana at T6 with minimal retropulsion of the vertebralbody. The collapsed T6 vertebral body and posterior elements showsabnormal enhancement with extension of enhancing material into theepidural space at this level representing metastatic disease. The vertebral bodies of T5 and T7 show near completemarrow replacement with enhancing metastatic disease which extends intothe posterior elements at these levels as well. Small foci of enhancementare seen in T4, T11 and T12 representing metastatic lesions. There is an acute kyphosis centered about the T6 vertebra plana. Thespinal cord appears normal. The intervertebral discs appear normal. No central canal stenosis is seen.The facets appear normal. No neural foraminal stenosis is seen. Therelarge posterior mediastinal lymphadenopathy which measures 6.5 cm. Lumbar spine: There is abnormal foci of enhancement in the L1, two foci in L2, and asmall focus in L4 representing metastatic disease. There is near completemarrow replacement and L5 representing metastatic disease. There is also a small focus of enhancement representing metastatic diseasein the left iliac bone. The alignment is normal. Vertebral bodies are normal in height withoutevidence of compression fractures. The conus medullaris is at the level ofL1 and the distal spinal cord appears normal. There is abnormalenhancement of the interspinous ligaments at L4-L5 of uncertain etiology. There is mild multilevel degenerative disc disease at L3-L4, L4-L5, andL5-S1 without central canal stenosis or neural foraminal stenosis. IMPRESSION IMPRESSION: 1. Multifocal spinal metastases involving C6, T4, T5, T6, T7, T11, T12,L1, L2, L4, and L5. Also a focus of metastatic disease in the left iliacbone. This is causing pathologic compression fracture/vertebra plana ofT6. 2. There is no significant central canal stenosis, no cord compression orabnormal cord signal. 3. Large posterior mediastinal lymphadenopathy. This report was approved by Misha Maldonado M.D. on 11/04/2012 4:00 PM. I, Dr. RAVI GUZMAN M.D. have personally reviewed and interpreted thisexamination/study. This report was electronically signed by RAVI GUZMAN M.D. on 11/04/20124:01 PM . John Massey MD MR ORDERABLES * NM CARDIAC MUGA SCAN (11/04/2012 2:29 PM CDT) Anatomical Region Laterality Modality Chest Other Impressions 11/04/2012 5:16 PM CDT Impression: 1. Normal biventricular size, volume and wall motion. 2. Normal left ventricular ejection fraction of 59 %. This report was approved ??by Mina Turner M.D. ?? on 11/04/2012 3:03 PM . I, Dr. GARY KIM M.D. have personally reviewed and interpreted this examination/study. This report was electronically signed by GARY KIM M.D. ??on 11/04/2012 5:16 PM . Narrative 11/04/2012 5:16 PM CDT Procedure: MUGA scan Agent: 23.4 mCi of Tc 99 m labeled autologous RBCs injected IV in the left forearm via Ultratag kit. History: Hodgkin's lymphoma, status pre chemotherapy. Scan is being done for the myocardial function. Findings: No prior studies are available for comparison. Images were acquired in anterior, left anterior oblique and lateral views. There is normal biventricular size, volumes and wall motion. Left ventricular ejection fraction (EF) is 59%. Procedure Note Gary Kim MD - 10/31/2017 Procedure: MUGA scan Agent: 23.4 mCi of Tc 99 m labeled autologous RBCs injected IV in the leftforearm via Ultratag kit. History: Hodgkin's lymphoma, status pre chemotherapy. Scan is being donefor the myocardial function. Findings: No prior studies are available for comparison. Images were acquired in anterior, left anterior oblique and lateral views.There is normal biventricular size, volumes and wall motion. Leftventricular ejection fraction (EF) is 59%. IMPRESSION Impression: 1. Normal biventricular size, volume and wall motion. 2. Normal left ventricular ejection fraction of 59 %. This report was approved by Mina Turner M.D. on 11/04/2012 3:03 PM . I, Dr. GARY KIM M.D. have personally reviewed and interpreted thisexamination/study. This report was electronically signed by GARY KIM M.D. on 11/04/20125:16 PM . John Massey MD NM ORDERABLES * PFT-LAB (11/04/2012 11:29 AM CDT) Impressions [facility] RADIOLOGY - 11/04/2012 11:29 AM CDT [facility] DEPARTMENT OF PULMONARY, CRITICAL CARE AND SLEEP MEDICINE PULMONARY FUNCTION TESTS Lakeisha M Justyn 11/04/2012 INTERPRETATION Please see technologist's comments mentioned above. SPIROMETRY: Mild reduction of the forced vital capacity. FEV1 is normal. FEV1/FVC ratio is normal. The MVV is acceptable and normal. The inspection of the patient's flow-volume loops shows normal configuration of the inspiratory and expiratory limbs. LUNG VOLUMES: Mild reduction of the TLC which correlates with a restrictive process. The RV and the RV/TLC ratio are normal. DLCO: Diffusing capacity adjusted for Hb and COHb is within normal limits. AIRWAY RESISTANCE: The airway resistance and the specific conductance are normal. IMPRESSION: 1. Mild restrictive ventilatory limitation. 2. No comparison study is available. Chacho Canales MD I have reviewed this study and agree with Dr. Canales's interpretation. Manjinder Costa M.D. Manager Behavior of Internal Medicine Division of Pulmonary, Critical Care and Sleep Medicine [facility] Narrative Procedure Note Provider, MD Alexis - 01/07/2018 IMPRESSION [facility] DEPARTMENT OF PULMONARY, CRITICAL CARE AND SLEEP MEDICINE PULMONARY FUNCTION TESTS Lakeisha M Justyn 11/04/2012 INTERPRETATION Please see technologist's comments mentioned above. SPIROMETRY: Mild reduction of the forced vital capacity. FEV1 is normal. FEV1/FVC ratio is normal. The MVV is acceptable and normal. The inspection of the patient's flow-volume loops shows normal configuration of the inspiratory and expiratory limbs. LUNG VOLUMES: Mild reduction of the TLC which correlates with a restrictive process. The RV and the RV/TLC ratio are normal. DLCO: Diffusing capacity adjusted for Hb and COHb is within normal limits. AIRWAY RESISTANCE: The airway resistance and the specific conductance are normal. IMPRESSION: 1. Mild restrictive ventilatory limitation. 2. No comparison study is available. Chacho Canales MD I have reviewed this study and agree with Dr. Canales's interpretation. Manjinder Costa M.D. Manager Behavior of Internal Medicine Division of Pulmonary, Critical Care and Sleep Medicine [facility] John Massey MD RESPIRATORY THERAPY ORDERABLES Performing Organization Address [facility] de Phone Number [facility] RADIOLOGY * PROTEIN ELECTROPHORESIS URINE RANDOM (11/03/2012 6:50 PM CDT) Interpretation Urine PE SEE NOTE [facility] Comment: Urine protein electrophoresis shows a prominent albumin band accompanied by transferrin and trace amounts of other nonspecific proteinuria. ??This pattern of protein excretion is referred to as stress proteinuria or postural proteinuria and may be seen in patients (with apparently normal renal function) during periods of physical stress, prolonged standing, acute inflammation, etc.. No monoclonal immunoglobulins detected. ??Non-secretory myeloma (NSM) cannot be excluded on the basis of this result. Measurements of serum free kappa and lambda immunoglobulin light chains can identify up to 70% of patients with NSM. ?Fiorella Roa, Ph.D. Protein Urine 15 mg/dL [facility] Urine PE Albumin 41.0 % [facility] Urine PE Globulin 59.0 % [facility] Urine specimen (specimen) URINE SPECIMEN COLLECTION, CATHETERIZED / Unknown 11/03/2012 6:50 PM CDT 11/03/2012 7:03 PM CDT John Massey MD LAB - URINE CHEMISTR Y ORDERABLES Performing Organization Address [facility] de Phone Number [address] [phone] * HCG URINE QUALITATIVE (11/03/2012 6:50 PM CDT) Test Urine NEGATIVE NEGATIVE [facility] Urine specimen (specimen) URINE SPECIMEN COLLECTION, CATHETERIZED / Unknown 11/03/2012 6:50 PM CDT 11/04/2012 8:51 AM CDT John Massey MD LAB - URINALYSIS ORD ERABLES Performing Organization Address [facility] de Phone Number [address] [phone] * HIV-1 HIV-2 ANTIGEN/ANTIBODY (11/03/2012 5:33 PM CDT) [facility] HIV Antigen/Antib neda 1 & 2 NONREACTIVE NONREACTIVE [facility] Comment:HIV-1 p24 AG and HIV -1/HIV-2 AB NOT DETECTED. Blood specimen (specimen) 11/03/2012 5:33 PM CDT 11/03/2012 5:52 PM CDT John Massey MD LAB - HEMATOLOGY MELISSA YADAV Performing Organization Address [facility] de Phone Number [address] [phone] * (ABNORMAL) CYTOMEGALOVIRUS ANTIBODY IGG BLOOD (11/03/2012 5:33 PM CDT) [facility] Cytomegalovirus Antibody IgG 1.6(H) 0.0 - 0.8 index [facility] Comment: ? Negative ?<0.9 ? Equivocal ?0.9 - 1.0 ? Positive ?>1.0 Performed at: ?? - [address] ??[id number] Marble Cleaner: Chris Bauer PhD, Phone: ??[phone] Venous blood specimen (specimen) 11/03/2012 5:33 PM CDT 11/03/2012 8:50 PM CDT John Massey MD LAB - CHEMISTRY CRHISTOPHER DE LA GARZA Performing Organization Address [facility] de Phone Number [address] [phone] * HEPATITIS BE ANTIGEN (11/03/2012 5:33 PM CDT) Hepatitis Be Virus Antigen Negative Negative [facility] 11/03/2012 5:33 PM CDT 11/03/2012 5:52 PM CDT John Massey MD LAB - CHEMISTRY [facility] [address] [phone] * HEPATITIS BE ANTIBODY (11/03/2012 5:33 PM CDT) Hepatitis Be Virus Antibody Negative Negative [facility] Comment: Performed at: ?? - [facility] [address] ??[id number] Marble Cleaner: Chris Bauer PhD, Phone: ??[phone] 11/03/2012 5:33 PM CDT 11/03/2012 5:52 PM CDT John Massey MD LAB - CHEMISTRY [facility]STOPHER DE [facility] Performing Organization Address City/[facility]/ZIP Co de Phone Number [address] [phone] * HEPATITIS B SURFACE ANTIBODY (11/03/2012 5:33 PM CDT) [facility] Hepatitis B Surface Antibody Quantitative 0.16 <8.00 mIU/mL [facility] Hepatitis B Virus Surface Antibody NONREACTIVE NONREACTIVE [facility] Comment: < 8 mIU/mL anti-HBs. Nonreactive for anti-HBs and individual is considered not immune to HBV infection. Venous blood specimen (specimen) 11/03/2012 5:33 PM CDT 11/03/2012 5:52 PM CDT John Massey MD LAB - CHEMISTRY [facility] [address] [phone] * HEPATITIS C ANTIBODY (11/03/2012 5:33 PM CDT) Hepatitis C Antibody NONREACTIVE NONREACTIVE [facility] Comment: Anti-HCV screen indicates no serologic evidence of past or current infection with Hepatitis C Virus. Patients with unexplained liver disease who are immunocompromised or suspected of having acute Hepatitis C infection may benefit from Nucleic Acid Test (EDGAR) for Hepatitis C Viral RNA to confirm Hepatitis C status. 11/03/2012 5:33 PM CDT 11/03/2012 5:52 PM CDT John Massey MD LAB - CHEMISTRY [facility] [address] [phone] * HEPATITIS A IGM ANTIBODY (11/03/2012 5:33 PM CDT) [facility] Hepatitis A Virus Antibody IgM NONREACTIVE NONREACTIVE [facility] 11/03/2012 5:33 PM CDT 11/03/2012 5:52 PM CDT John Massey MD LAB - CHEMISTRY [facility]RISTOPHER DE LA [facility]AR[facility] Performing Organization Address [facility] Co de Phone Number [address] [phone] * HEPATITIS A ANTIBODY (11/03/2012 5:33 PM CDT) [facility] Hepatitis A Virus Total Antibody Negative Negative [facility] Comment: Performed at: ?? - [facility] ??[id number] Marble Cleaner: Chris Bauer PhD, Phone: ??[phone] 11/03/2012 5:33 PM CDT 11/03/2012 5:52 PM CDT John Massey MD LAB - CHEMISTRY [facility]STOPHER [facility]AR[facility] [address] [phone] * HEPATITIS B CORE ANTIBODY IGM (11/03/2012 5:33 PM CDT) Hepatitis B Core Virus Antibody IgM NONREACTIVE NONREACTIVE [facility] 11/03/2012 5:33 PM CDT 11/03/2012 5:52 PM CDT John Massey MD LAB - CHEMISTRY CHRISTOPHER DE LA GARZA [facility] [address] [place] [address] Care Teams Wood Carving Machine Operator Relationship Specialty Start Date End Date Blake Lindsey MD [address] [place] [address] PCP - General 05/20/16
--- OUTSIDE RECORDS SUMMARY | 2024-07-29 17:20 | XMS_ITS | Encounter Summary ---
Author Organization [facility] Health Address [address] [place] [address] Care Team Providers Care Oncology Rep Name Role Phone Blake Lindsey MD Primary Care Provider [phone] Encounter Details Date Type Department Care Team (Latest Contact Info) Description 10/07/2022 9:04 AM PRODUCTION LABORER - 10/07/2022 11:59 PM [facility] Hospital Encounter [facility] DI[facility]NOSTIC RAD [facility]SM [address] [facility] [place] [address] Jennifer Dia, PADishaC [address] [place] [id number] Discharge Disposition: Home or Self Care Social [...] To bilateral nares 22 g 1 03/17/2021 Nurtec 75 MG tablet Take 75 mg by mouth as directed 07/14/2022 NYSTOP 173289 UNIT/GM powder Apply 1 Dose to affected [...] (one) tablet by mouth at bedtime 07/20/2022 spironolactone (ALDACTONE) 25 MG tablet Take 1 [...] mouth nightly as needed for Insomnia 06/26/2020 Xtampza ER 13.5 MG capsule Take 1 (one) capsule by mouth every 12 hours 07/27/2022 TRELEGY ELLIPTA 100-62.5-25 MCG/INH Inhale 1 (one) puff by mouth every 6 hours as needed 06/13/2020 04/11/2024 Vitamin D3 (Cholecalciferol) 50 MCG (1999 UT) capsuleIndications:Vi tamin D deficiency TAKE 1 CAPSULE BY MOUTH ONCE DAILY 90 capsule 3 07/07/2022 08/31/2023 documented as of this encounter Plan of Treatment Not on file documented as of this encounter Procedures Procedure Name Priority Date/Time Associated Diagnosis Comments XR HAND LEFT 3VW OR MORE Routine 10/07/2022 9:10 AM PRODUCTION LABORER Bilateral hand pain documented in this encounter Results * XR HAND LEFT 3VW OR MORE (10/07/2022 9:10 AM PRODUCTION LABORER) Anatomical Region Laterality Modality Wrist / Hand Radiographic Jonna ging 10/07/2022 9:56 AM PRODUCTION LABORER Impressions 10/07/2022 9:59 AM PRODUCTION LABORER IMPRESSION: Minimal degenerative changes. > Interpreting Provider: Emil Malone MD on 10/07/2022 9:59 AM Narrative 10/07/2022 9:59 AM PRODUCTION LABORER PROCEDURE: ??XR HAND LEFT 3VW OR MORE, XR HAND RIGHT 3VW OR MORE, DATE/TIME OF EXAM: ??10/07/2022 9:10 AM, LOCATION ??[facility] INDICATION: M79.641: Bilateral hand pain M79.642: Bilateral [...] soft tissues are normal. Procedure Note Emil Malone MD - 10/07/2022 PROCEDURE: XR HAND LEFT 3VW OR MORE, XR HAND RIGHT 3VW OR MORE,DATE/TIME OF EXAM: 10/07/2022 9:10 AM, LOCATION [facility] INDICATION: M79.641: Bilateral hand pain M79.642: Bilateral [...] Minimal degenerative changes. > Interpreting Provider: Emil Malone MD on 10/07/2022 9:59 AM Jennifer Dia PA-[facility] DI[facility]NO[facility] ORDERABLES documented in this encounter Visit Diagnoses Diagnosis Bilateral hand pain Pain in limb documented in this encounter Care Teams Oncology Rep Relationship Specialty Start Date End Date Blake Lindsey MD [address] [place] [address] PCP - General 05/20/16 documented as of this encounter
--- OUTSIDE RECORDS SUMMARY | 2024-07-29 17:20 | XMS_ITS | Encounter Summary ---
Author Organization [facility] Health Address [address] [place] [address] Care Team Providers Care Electrical Appliance Servicer Name Role Phone Blake Lindsey MD Primary Care Provider [phone] Reason for Visit * Reason Comments Refill Request Encounter Details Date Type Department Care Team (Late st Contact Info) Description 04/08/2022 Refill [facility] Sleep Disorder Check [address] [place] [address] Lowell Pop MD [address] OF PULMONARY/[place] [address] Refill Request Social History Tobacco Use Types [...] type documented in this encounter Care Teams Electrical Appliance Servicer Relationship Specialty Start Date End Date Blake Lindsey MD [address] [place] [address] PCP - General 05/20/16 documented as of this encounter
--- OUTSIDE RECORDS SUMMARY | 2024-07-29 17:20 | XMS_ITS | Encounter Summary ---
Author Organization [facility] Health Address [address] [place] [address] Care Team Providers Care Accounts Payables Clerk Name Role Phone Blake Lindsey MD Primary Care Provider [phone] Reason for Visit * Reason Comments Refill Request Encounter Details Date Type Department Care Team (Late st Contact Info) Description 08/30/2023 Refill [facility] - [facility] [place] [id number] Lowell Pop MD [address] OF PULMONARY/[place] [address] Refill Request Social History Tobacco Use Types [...] as of this encounter Visit Diagnoses Diagnosis Vitamin D deficiency documented in this encounter Care Teams Accounts Payables Clerk Relationship Specialty Start Date End Date Blake Lindsey MD [address] [place] [address] PCP - General 05/20/16 documented as of this encounter
--- OUTSIDE RECORDS SUMMARY | 2024-07-29 17:20 | XMS_ITS | Encounter Summary ---
Author Organization [facility] Health Address [address] [place] [address] Care Team Providers Care Car And Yard Supervisor Name Role Phone Blake Lindsey MD Primary Care Provider [phone] Reason for Visit * Reason Comments Refill Request Encounter Details Date Type Department Care Team (Late st Contact Info) Description 07/07/2022 Refill [facility] Sleep Disorder [place] [address] [place] [address] Lowell Pop MD [address] OF [facility]ULMON[facility] [address] Refill Request Social History Tobacco Use Types [...] encounter Miscellaneous Notes * Telephone Encounter - Briana Mason - 07/07/2022 8:10 AM CST Last visit 08/06/2021 No showed for 09/30/2021 No future visits D ADMINISTRATOR documented in this encounter Plan of Treatment Not on file documented as of this encounter Visit Diagnoses Diagnosis Vitamin D deficiency- Primary documented in this encounter Care Teams Car And Yard Supervisor Relationship Specialty Start Date End Date Blake Lindsey MD [address] [place] [address] PCP - General 05/20/16 documented as of this encounter
--- OUTSIDE RECORDS SUMMARY | 2024-07-29 17:20 | XMS_ITS | Encounter Summary ---
Author Organization [facility] Health Address [address] [place] [address] Care Team Providers Care Knockup Worker Name Role Phone Blake Lindsey MD Primary Care Provider [phone] Reason for Referral * Radiology Services (Routine) - Closed Specialty Diagnoses / Procedures Referred By Contac t Referred To Contact CT Scan Diagnoses Abnormal CT of the chest Procedures CT Chest Wo Cont And Don Rider MD [address] [place] [address] 2L DIV OF PULMONARY/[place] [address] [facility] [address] [place] [address] Referral ID Status Reason Start Date Expiration Date Visits Re quested Visits Authorized [id number] Closed 04/11/2024 04/11/2025 1 1 * Procedure (Routine) - Closed Specialty Diagnoses / Procedures Referred By Contzohreh cano Referred To Contact Pulmonary Disease Diagnoses Abnormal CT of the chest Procedures SIX MINUTE WALK Don Manuel MD [address] [facility] 2L DIV OF PULMONARY/[place] [address] [facility] [address] [place] [address] Referral ID Status Reason Start Date Expiration Date Visits Re quested Visits Authorized [id number] Closed 04/11/2024 04/11/2025 1 1 * Procedure (Routine) - Closed Specialty Diagnoses / Procedures Referred By Ariel cano Referred To Contact Pulmonary Disease Diagnoses Abnormal CT of the chest Procedures COMPLETE PFT W/WO BRONCHODILATOR Don Manuel MD [address] [place] [address] OF PULMONARY/[place] [address] [facility] [address] [place] [address] Referral ID Status Reason Start Date Expiration Date Visits Re quested Visits Authorized [id number] Closed 04/11/2024 04/11/2025 1 1 Reason for Visit * Consult, Test & Treat (Routine) - Closed Specialty Diagnoses / Procedures Referred By Ariel cano Referred To Contact Internal Medicine / Pulmonary Disease Diagnoses SOB (shortness of breath) Wheezing Blake Lindsey MD [address] [place] [address] Chapito Ortega MD [address] [place] [address] Referral ID Status Reason Start Date Expiration Date Visits Re quested Visits Authorized [id number] Closed 04/11/2024 04/11/2025 1 1 Encounter Details Date Type Department Care Team (Late st Contact Info) Description 04/11/2024 3:30 PM CDT Office Visit [facility] - Pulmonology [address] [place] [address], [place] [id number] Chapito Ortega MD [address] [place] [address] of the chest (Primary Dx); Acute cough Social History Tobacco Use Types Packs/Day Years [...] Pulse 103 04/11/2024 3:41 PM CDT Temperature - - Respiratory Rate 17 04/11/2024 3:41 PM CDT Oxygen Saturation 94% 04/11/2024 3:41 PM CDT Inhaled Oxygen Concentration - - Weight 83.5 kg (184 lb) 04/11/2024 3:41 PM CDT Height 157.5 cm (5' 2 ) 04/11/2024 3:41 PM CDT Body Mass Index 33.65 04/11/2024 3:41 PM CDT documented in this encounter Functional Status [...] as of this encounter Progress Notes * Chapito Ortega MD - 04/11/2024 3:30 PM CDT PULMONARY CLINIC NOTE The patient is a 53-year-old female who is here for further management of reported asthma/COPD and NSIP. HPI: Miss Alejandra is a 53-year-old female with PMHx of: -Possible NSIP: See HRCT below. Pt has never had bronchoscopy -COVID-19 (01/2021) -Reported asthma and COPD -Central sleep apnea -Hodgkin's lymphoma (12/2012): Treated with BEACOPP (bleomycin, etoposide, doxorubicin, cyclophosphamide, vincristine, procarbazine, and prednisone) -Anxiety -Hypercholesterolemia -Left intraparotid and periparotid nodes: Follows with ENT Pt last saw pulmonary on 07/01/2021. At that time, she was off supplemental O2. ILD workup, including HIV, AURY, RF, anti-CCP- ANCA, HP panel, anti-dsDNA, myositis panel, anti-Mike- anti-U1-PAINT STOCKMAN, SS-A, and SS-B ordered. These were not completed. Current pertinent medications include Trelegy Ellipta 100-62.5-25 mcg 1 puff daily, albuterol nebulizer PRN, bupropion 150 mg daily, omeprazole 20 mg daily, furosemide 20 mg daily, cetirizine 10 mg daily, montelukast 10 mg daily. Pt is still taking the Trelegy Ellipta. She has not been feeling well for about 1 month. Pt had been working in an environment with mold for 3 weeks, and she left approximately 3 weeks ago. Symptoms include SOB at rest and with talking/exertion (can only walk 100 feet, which is decreased from miles/day), dry cough (sometimes productive of thompson phlegm), chest tightness, wheezing. Denies nasal congestion/rhinorrhea, fevers, chills, LE swelling. Pt was prescribed prednisone (5 days) and antibiotic (10 days) on 03/07, without improvement. She quit smoking tobacco 26 year. Pt last smoked marijuana a couple weeks ago. She is using her nebulizer 2-3 times/day (not since Wednesday because it broke), and she is using her inhaler 3-4 times/day. Denies nocturnal symptoms. She endorses COVID-19 in 01/2021. She is not supplemental O2 during the day and wears 3 L NC at night (supposed to be on BiPAP). ACT score: 04/11/2024 3:00 PM 07/01/2021 2:00 PM 04/15/2021 3:00 PM ASTHMA CONTROL TEST In the past 4 weeks, how much time did your asthma keep you from work, school, or home? 5 5 5 During the past 4 weeks, how often have you had shortness of breath? 1 4 3 During the past 4 weeks, how often did your asthma symptoms (wheezing, coughing, shortness of breath, chest tightness, or pain) wake you up at night or earlier than usual in the morning? 3 5 5 During the past 4 weeks, how often have you used your rescue inhaler or nebulizer medication (such as albuterol)? 1 5 2 How would you rate your asthma contol during the past 4 weeks? 2 5 5 Asthma Control Test Total Score (0-25) 12 24 20 Systemic ROS: 10-point ROS is negative except as mentioned above. Past Medical History: Past Medical History: Diagnosis [...] use of opioids 07/18/2021 Claustrophobia 07/15/2021 Convulsions (HCC) 01/02/2013 COPD (chronic obstructive pulmonary disease) (HCC) COVID-19 01/2021 hospitalized February 07-, on oxygen [...] History of penicillin allergy 08/31/2015 Hodgkin's disease (HCC) 01/16/2013 Hodgkins lymphoma ([facility]) 2012 Inadequate sleep hygiene 07/18/2021 Infectious disease 08/30/2015 Leg cramps 07/18/2021 Mass of breast 12/13/2012 - Patient on exam has palpable LN in Left breast; has been evaluated by Dr Chavez. - Repeat U/S breast 11/10- not concerning for malignancy- no intervention needed, patient to undergo repeat mammogram in one year. Migraine Mild persistent asthma, uncomplicated (HCC) 06/22/2017 Nausea 04/18/2017 Nausea with vomiting 12/29/2012 [...] HX SPINAL FUSION 2012 Knee Arthroscopy Left 2007 Knee Arthroscopy Right 2008 LUTHER TOOTH EXTRACTION 2012 all Family History: Family History Problem Relation Name Age of Onset Heart Disease Mother hannah Diabetes Mother hannah Hypertension Mother hannah CAD (Coronary Artery Disease) Mother hannah Cancer Father denise thyroid Heart Disease Father denise Hypertension Father denise CAD (Coronary Artery Disease) Father denise None Known Brother Social History: Social History Socioeconomic History Marital status: Single Spouse name: x2 Number of children: 2 Years of education: 14 Highest education level: Associate degree: occupational, technical, or vocational program Occupational History Occupation: [employer] Tobacco Use Smoking status: Former Packs/day: 1.00 Years: 14.00 Additional pack years: 0.00 Total pack years: 14.00 Types: Cigarettes Start date: 1984 Quit date: 11/30/1997 Years since quittin.3 Smokeless tobacco: Never Vaping Use Vaping Use: Never used Substance and Sexual Activity Alcohol use: Yes Alcohol/week: 0.0 - 1.0 standard drinks of alcohol Comment: once a month Drug use: Yes Types: Marijuana Comment: once a month Sexual activity: Yes Partners: Male Social History Narrative 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 [employer] Lives duplex with female roommate Pets 1 dog, 1 lizard Hobby crafting, gardening, walkening Current Outpatient Medications: albuterol (PROVENTIL;VENTOLIN) (2.5 MG/3ML) 0.083% nebulizer solution, INHALE 3 ML BY NEBULIZATION 3 TIMES DAILY Reasons: Disease Involving Spasms of the Bronchus (Patient taking differently: Inhale 2.5 (two and one-half) mg by mouth 3 times daily as needed for Shortness of Breath or Wheezing INHALE 3 ML BY NEBULIZATION 3 TIMES DAILY Reasons: Disease Involving Spasms of the Bronchus), Disp: 1 vial, Rfl: 0 ascorbic acid (VITAMIN C) 500 MG tablet, Take 1 (one) tablet by mouth once daily Take 1 tablet at the same time as your ferrous sulfate (iron tablet)., Disp: 90 tablet, Rfl: 3 atorvastatin (LIPITOR) 10 MG tablet, Take 1 (one) tablet by mouth at bedtime, Disp: , Rfl: baclofen (LIORESAL) 20 MG tablet, Take 1 (one) tablet by mouth as directed, Disp: , Rfl: buPROPion XL 24hr (WELLBUTRIN-XL) 150 MG tablet, Take 1 (one) tablet by mouth once daily, Disp: , Rfl: cetirizine (ZYRTEC) 10 MG tablet, Take 1 (one) tablet by mouth once daily as needed, Disp: , Rfl: escitalopram (LEXAPRO) 20 MG tablet, Take 1 (one) tablet by mouth once daily (Patient not taking: Reported on 12/22/2023), Disp: , Rfl: FeroSul 325 (65 Fe) MG tablet, TAKE 1 TABLET BY MOUTH ONCE DAILY, TAKE AT TGHE SAME TIME YOUR VITAMIN TABLET (Patient not taking: Reported on 12/22/2023), Disp: 90 tablet, Rfl: 3 furosemide (LASIX) 20 MG tablet, Take 1 tablet by mouth once daily Reasons: Edema, Disp: 30 tablet,Rfl: 0 gabapentin (NEURONTIN) 300 MG capsule, Take 1 (one) capsule by mouth 3 times daily, Disp: , Rfl: lubiprostone (Amitiza) 24 MCG capsule, Take 1 (one) capsule by mouth 2 times daily with morning andevening meal, Disp: , Rfl: montelukast (SINGULAIR) 10 MG tablet, Take 1 (one) tablet by mouth once daily, Disp: , Rfl: Movantik 25 MG tablet, , Disp: , Rfl: mupirocin (BACTROBAN) 2 % ointment, Apply to affected area 3 times daily To bilateral nares, Disp: 22 g, Rfl: 1 nitrofurantoin monohyd macro crystals (Macrobid) 100 MG capsule, Take 1 (one) capsule by mouth 2 times daily with morning and evening meal (Patient not taking: Reported on 12/22/2023), Disp: , Rfl: Nurtec 75 MG tablet, Take 75 mg by mouth as directed, Disp: , Rfl: NYSTOP [id number] UNIT/GM powder, Apply 1 Dose to affected area as directed , Disp: , Rfl: 1 omeprazole (PRILOSEC) 20 MG capsule, Take 1 (one) capsule by mouth once daily, Disp: , Rfl: ondansetron (ZOFRAN) 4 MG tablet, Take 1 (one) tablet by mouth as needed for Nausea/Vomiting, Disp:, Rfl: ondansetron, disintegrating, (Zofran ODT) 4 MG tablet, Take 1 (one) tablet by mouth every 8 hours as needed (Patient not taking: Reported on 12/22/2023), Disp: , Rfl: phentermine (Adipex-P) 37.5 MG tablet, Take 1 (one) tablet by mouth once daily, Disp: , Rfl: potassium chloride ER (KLOR-CON) 20 MEQ tablet, Take 1 (one) tablet by mouth once daily, Disp: , Rfl: 0 prazosin (MINIPRESS) 1 MG capsule, Take 1 (one) capsule by mouth as directed, Disp: , Rfl: predniSONE (Deltasone) 10 MG tablet, Take 1 (one) tablet by mouth once daily (Patient not taking: Reported on 12/22/2023), Disp: , Rfl: QUEtiapine (SEROQUEL) 100 MG tablet, Take 1 tablet by mouth at bedtime Reasons: Major Depressive Disorder, Disp: 30 tablet, Rfl: 0 QUEtiapine (SEROquel) 50 MG tablet, Take 1 (one) tablet by mouth at bedtime, Disp: , Rfl: silver sulfADIAZINE (Silvadene) 1 % cream, Apply to affected area once daily (Patient not taking: Reported on 12/22/2023), Disp: , Rfl: spironolactone (ALDACTONE) 25 MG tablet, Take 1 (one) tablet by mouth once daily, Disp: , Rfl: 2 SUMAtriptan (IMITREX) 50 MG tablet, Take 1 tablet by mouth once as needed for Migraine Maximum daily dose: 200mg/24 hours Reasons: Migraine Headache, Disp: 30 tablet, Rfl: 0 traZODone (Desyrel) 100 MG tablet, Take 1 (one) tablet by mouth nightly as needed, Disp: , Rfl: traZODone (DESYREL) 50 MG tablet, Take 1 (one) tablet by mouth nightly as needed for Insomnia (Patient not taking: Reported on 12/22/2023), Disp: , Rfl: TRELEGY ELLIPTA 100-62.5-25 MCG/INH, Inhale 1 (one) puff by mouth every 6 hours as needed, Disp: , Rfl: Vitamin D3 (Cholecalciferol) 50 MCG (2000 UT) capsule, TAKE 1 CAPSULE BY MOUTH EVERY DAY, Disp: 90 capsule, Rfl: 3 Xtampza ER 13.5 MG capsule, Take 1 (one) capsule by mouth every 12 hours, Disp: , Rfl: Immunizations: Immunization History Administered Date(s) Administered Covid Moderna primary monovalent 12+ yr 0.5mL 03/31/2021, 04/30/2021 FLU VACCINE TRI IIV3 SPLIT PF IM (FLUVIRIN) 04/18/2017 INFLUENZA VACCINE, QUADR. (AFLURIA, FLUZONE QUADRIVALENT; 6MO+) (IIV4) 04/02/2019, 04/05/2019 INFLUENZA VACCINE, QUADR. (FLUZONE; FLULAVAL; FLUARIX; AFLURIA QUADRIVALENT; 6MO+), 0.5 ML (IIV4) 04/05/2019 PNEUMOCOCCAL PPSV23 10/30/2015 PNEUMOCOCCAL PPV, HISTORIC VACCINE 08/24/2013 Pneumococcal Pcv13 Conj 07/08/2021 TDAP (7yrs+) 02/04/2023 iNFLUENZA VACCINE, RECOM-AREVALO, QUADR. (FLUBLOCK QUADRIVALENT; 18Y+) (RIV4) 07/08/2021 Allergies: Allergies Allergen Reactions Amoxicillin Rash Penicillins Rash Codeine Other Passes out, Passes out Epinephrine Other When injected in mouth for dental procedures, makes extremities go numb Patient metabolizes medication quickly Physical Examination: There were no vitals filed for this visit. Estimated body mass index is 32.01 kg/m?? as calculated from the following: Height as of 12/22/23: 1.575 m (5' 2 ). Weight as of 12/22/23: 79.4 kg (175 lb). Gen: Well developed, A&Ox4, in NAD HEENT: MMM, no oral thrush CV: RRR, normal S1 and S2 Chest: CTAB, no wheezing, crackles, or rhonchi appreciated Abd: Soft, NT/ND Extr: No clubbing or edema Skin: Warm and dry, no rashes or other skin lesions present LABS: Reviewed. Absolute eosinophil count as high as 610 in 10/2012. Most recent was 310 on 06/09/2022. Allergen panel on 03/28/2021 was negative and showed IgE 4. She has not had an autoimmune workup IMAGING REVIEWED: PFT (05/28/2021): 1. Normal pulmonary function test 2. Compared to study from 08/16/2017, FEV1 is increased by 260 mL and TLC is decreased by 400 mL 6MWT (03/28/2021): 1. Total 6 minute walk distance is 306 meters, which is below the lower limit of normal of 375 meters for this patient. 2. Compared to prior study on 03/11/2015, the patients 6 minute walk distance has increased by 63 meters. O2 desat study (05/28/2021): At the above level of activity the patient's oxygen saturation remained 92% and above on room air. The patient did not have a significant oxygen desaturation while walking at 2 MPH for a total of 8 minutes. Dobutamine stress echo (03/28/2021): Left ventricular systolic function is normal with an ejection fraction by Biplane Method of Discs of 73%. Left ventricular segmental wall motion is normal. The left ventricular diastolic function is normal, consistent with normal left ventricle filling pressures.Normal right ventricular systolic function. Normal augmentation of all wall segments without evidence of ischemia with pharmacologic stress. With pharmacologic stress, improvement in the ejection fraction. Stress EKG is negative for ischemic changes. No chest pain noted. Pharmacologic stress echocardiogram is normal. HRCT chest (05/28/2021): There is peripheral, posterior predominant fine reticular opacity throughout the bilateral upper and lower lobes, with subpleural sparing most consistent with nonspecific interstitial pneumonia. There are tiny areas of air-trapping within the posterior aspects of the bilater al lower lobes on expiration. There is no diffuse cystic or nodular disease. There is no bronchiectasis or honeycombing. Previously seen superimposed areas of groundglass opacity have resolved. Thereis no pleural effusion or pneumothorax. ASSESSMENT: #Possible NSIP on imaging #Hx of asthma, in acute exacerbation #Hx of Hodgkin's lymphoma s/p treatment (2012) #Central sleep apnea (noncompliant with BiPAP) PLAN: - Tests ordered: CXR, Complete PFT with and without bronchodilators, HRCT chest, 6MWT, PFT desaturation study, CBC with differential, HIV, AURY, RF, anti-CCP, ANCA, HP panel, anti-dsDNA, myositis panel, anti-Mike, PAINT STOCKMAN, SS-A, and SS-B - New Medications prescribed: Prednisone 40 mg daily for 5 days - Continue using: Trelegy Ellipta 200-62.5-25 mcg 1 puff daily (dose increased), albuterol nebulizer or inhaler PRN - Lung cancer screening: Not a candidate - Weight loss via healthy eating and exercise - Vaccinations: PCV13 (07/08/2021), PPSV23 (10/30/2015). Needs influenza and PCV20 but will defer given worsening dyspnea Follow-up in 2 months Chapito Ortega MD PGY-6, Pulmonary, Critical Care, and Sleep Medicine [facility] Associated attestation - Don Manuel MD - 04/17/2024 2:33 PM CDT I saw and evaluated the patient. I reviewed the resident???s note and agree with findings and plan as documented in the resident???s note Don Manuel MD Division of Pulmonary, Critical Care, & Sleep Medicine [facility] [employer] P: [phone] 04/17/2024 , 2:33 PM documented in this encounter Plan of Treatment Scheduled Orders Name Type Priority Associated Diagnoses Orde r Schedule XR Chest 2Vw Imaging Routine Abnormal CT of the chest 1 Occurrences starting 04/11/2024 until 04/11/2025 LUPUS PANEL C (DSDNA,PAINT STOCKMAN,SM,SS-A, SS-B) Lab Routine Abnormal CT of the chest Ordered: 04/11/2024 documented as of this encounter Procedures Procedure Name Priority Date/Time Associated Diagnosis Comments HIV-1 HIV-2 ANTIBODY + HIV P24 AG PANEL Routine 04/11/2024 4:[address] of the chest ANCA VASCULITIS PANEL Routine 04/11/2024 4:[address] of the chest documented in this encounter Results * AMBULATORY OXIMETRY (05/22/2024 12:11 PM CDT) Impressions Turner Hunter MD - 05/22/2024 12:11 PM CDT [facility] DEPARTMENT OF PULMONARY, CRITICAL CARE, AND SLEEP MEDICINE OXYGEN TITRATION STUDY Lakeisha Michaelsrachael 05/22/2024 INTERPRETATION The test was performed on [...] of Pulmonary, Critical Care, and Sleep Medicine [facility] I have personally reviewed and agree with the fellow's interpretation. Turner Hunter MD Narrative Turner Hunter MD - 05/22/2024 12:11 PM CDT Dar Sheriff MD ? 05/22/2024 ??9:26 PM Don Manuel MD RESPIRATORY THERAPY ORDERABLES * SIX MINUTE WALK (05/22/2024 12:10 PM CDT) Impressions Turner Hunter MD - 05/22/2024 12:10 PM CDT [facility] DEPARTMENT OF PULMONARY, CRITICAL CARE, AND SLEEP [...] Sheriff MD Pulmonary and Critical Care Fellow [facility] Pager Number [phone] I have personally reviewed and agree with the fellow's interpretation. Turner Hunter MD Narrative Turner Hunter MD - 05/22/2024 12:10 PM CDT Dar Sheriff MD ? 05/22/2024 ??9:26 PM Don Manuel MD RESPIRATORY THERAPY ORDERABLES * COMPLETE PFT W/WO BRONCHODILATOR (05/22/2024 12:09 PM CDT) Impressions Turner Hunter MD - 05/22/2024 12:09 PM CDT [facility] DEPARTMENT OF PULMONARY, CRITICAL CARE, AND SLEEP [...] of Pulmonary, Critical Care, and Sleep Medicine [facility] I have personally reviewed [...] > Dictated by Hanna Tyson MD, MD (professor of radiology). I, Madhu Olivier MD have personally [...] > Dictated by Hanna Tyson MD, MD (professor of radiology). I, Madhu Olivier MD have personally reviewed and interpreted this examination/study. > Interpreting Provider: Madhu Olivier MD on 05/22/2024 7:[address] ORDERABLES * PNEUMONITIS HYPERSENSITIVE PANEL (04/11/2024 4:52 PM CDT) Allergen Feather Mix Negative Negative kU/L 04/17/2024 1:59 AM CDT [employer] ([facility]) Aspergillus fumigatus 1 None Detected None Detected 04/17/2024 1:59 AM CDT [facility] ([facility]) Aspergillus fumigatus 6 See Note None Detected 04/17/2024 1:59 AM CDT [facility] ([facility]) Comment: A. fumigatus #6 Ab, Precipitin testing not performed due to reagent backorder. A credit will be issued for this component. Aureobasidium Pullulans None Detected None Detected 04/17/2024 1:59 AM CDT [facility] ([facility]) [place] Serum None Detected None Detected 04/17/2024 1:59 AM CDT [facility] ([facility]) Micropolyspora faeni None Detected None Detected 04/17/2024 1:59 AM CDT [facility] ([facility]) Aspergillus flavus None Detected None Detected 04/17/2024 1:59 AM CDT [facility] ([facility]) Aspergillus fumigatus 2 None Detected None Detected 04/17/2024 1:59 AM CDT [facility] ([facility]) Aspergillus fumigatus 3 None Detected None Detected 04/17/2024 1:59 AM CDT [facility] ([facility]) Saccharomonospora viridis None Detected None Detected 04/17/2024 1:59 AM CDT [facility] ([facility]) Thermoactinomyces candidus None Detected None Detected 04/17/2024 1:59 AM CDT [facility] ([facility]) Comment: Testing includes antibodies directed at Aureobasidium pullulans, Aspergillus flavus, Aspergillus fumigatus #1, Aspergillus fumigatus #2, Aspergillus fumigatus #3, Aspergillus fumigatus #6, Micropolyspora faeni, [place] Serum, Saccharomonospora viridis, and Thermoactinomyces candidus. Allergen Phoma betae <0.10 <=0.34 kU/L 04/17/2024 1:59 AM CDT [facility] ([facility]) Allergen Beef <0.10 <=0.34 kU/L 04/17/2024 1:59 AM CDT [facility] ([facility]) Allergen Pork <0.10 <=0.34 kU/L 04/17/2024 1:59 AM CDT [facility] ([facility]) Immunocap Score See Note 1:59 AM CDT [facility] ([facility]) Comment: REFERENCE INTERVAL: Allergen, Interpretation Less than [...] clinical allergy or even anaphylaxis. Performed By: [facility] [address] [place] [address] [employer] Tr[employer]: Sivakumar Levi MD, PhD CLIA Number: [id number] Blood BLOOD SPECIMEN / Unknown Lab Venipuncture / Unknown 04/11/2024 4:52 PM CDT 04/11/2024 5:31 PM CDT Don Manuel MD LAB - CHEMISTRY CHRISTOPHER DE LA [facility]AR[facility] Organization Address City/State/ZIP Co de Phone Number [employer] [facility]) [address] [place] [address], [facility] * ANCA VASCULITIS PANEL (04/11/2024 4:52 PM CDT) [facility] Myeloperoxidase Antibody 0 0 - 19 AU/mL 04/14/2024 11:59 PM CDT [employer] ([facility]) Comment: INTERPRETIVE INFORMATION: Myeloperoxidase Abs, IgG ??19 AU/mL or Less ......... Negative ??20-25 AU/mL .............. Equivocal ??26 AU/mL or Greater ...... Positive Approximately 90% of patients with a P-ANCA pattern by IFA have antibodies specific for MPO. Serine Proteinase 3 IgG 0 0 - 19 AU/mL 04/14/2024 11:59 PM CDT [facility] [employer] [facility]) Comment: INTERPRETIVE INFORMATION: Serine Proteinase 3, IgG ??19 AU/mL or Less ........ Negative ??20-25 AU/mL ............. Equivocal ??26 AU/mL or Greater ..... Positive Approximately 85% of patients with a C-ANCA pattern by IFA have antibodies specific for PR3. ANCA Titer IFA <1:20 <1:20 04/14/2024 11:59 PM CDT [facility] [employer] [facility]) ANCA Pattern IFA None Detected None Detected 04/14/2024 11:59 PM CDT [facility] [employer] [facility]) Comment: INTERPRETIVE INFORMATION: ANCA IFA Pattern Neutrophil Cytoplasmic Antibodies (C-ANCA = granular cytoplasmic staining, P-ANCA = perinuclear staining) are found in the serum of over 90 percent of patients with certain necrotizing systemic vasculitides, and usually in less than 5 percent of patients with collagen vascular disease or arthritis. Performed By: [facility] [address] [place] [address] [employer] Tr[employer]: Sivakumar Levi MD, PhD CLIA Number: [id number] Blood BLOOD SPECIMEN / Unknown Lab Venipuncture / Unknown 04/11/2024 4:52 PM CDT 04/11/2024 5:09 PM CDT Don Manuel MD LAB - CHEMISTRY CHRISTOPHER DE LA GARZA [facility] Organization Address City/State/ZIP Co de Phone Number [facility] [employer] [facility] [address] [place] [address] * AURY BLOOD SCREEN W/REFLEX TITER (04/11/2024 4:52 PM CDT) Pathologist [facility] AURY IgG None Detected None Detected 04/13/2024 3:43 PM [facility] Comment: If suspicion of connective tissue disease is strong and AURY EIA is negative, consider testing for AURY by IFA ([id number]). INTERPRETIVE INFORMATION: Anti-Nuclear Antibodies (AURY), IgG by SINCERE Antinuclear Antibodies (AURY), IgG by SINCERE: AURY specimens are screened using enzyme-linked immunosorbent assay (SINCERE) methodology. All SINCERE results reported as Detected are further tested by indirect fluorescent assay (IFA) using HEp-2 substrate with an IgG-specific conjugate. The AURY SINCERE screen is designed to detect antibodies against dsDNA, histones, SS-A (Ro), SS-B (La), Mike, Mike/PAINT STOCKMAN, Scl-70, Susanne-1, centromeric proteins, other antigens extracted from the HEp-2 cell nucleus. AURY SINCERE assays have been reported to have lower sensitivities than AURY IFA for systemic autoimmune rheumatic diseases (SARD). Negative results do not necessarily rule out SARD. Performed By: [facility] Datezr [address] [place] [address] Rawhide Trimmer: Sivakumar Levi MD, PhD CLIA Number: [id number] Blood BLOOD SPECIMEN / Unknown Lab Venipuncture / Unknown 04/11/2024 4:52 PM CDT 04/11/2024 5:32 PM CDT Don Manuel MD LAB - CHEMISTRY ORDE [facility] Organization Address City/State/ZIP Co de Phone Number [facility]) [address] [place] [id number], [facility] * CBC W/ DIFFERENTIAL (04/11/2024 4:52 PM CDT) WBC 8.6 4.0 - 10.7 x10E9/L 04/11/2024 5:45 PM CDT [facility] RBC Count 4.62 3.90 - 5.20 x10E12/L 04/11/2024 5:45 PM CDT [facility] Hemoglobin 15.1 11.9 - 15.8 g/dL 04/11/2024 5:45 PM CDT [facility] Hematocrit 43.2 34.8 - 46.1 % 04/11/2024 5:45 PM CDT [facility] MCV 93.5 80.0 - 98.0 fL 04/11/2024 5:45 PM [facility] MCH 32.7 26.7 - 33.6 pg 04/11/2024 5:45 PM [facility] MCHC 35.0 31.7 - 36.3 g/dL 04/11/2024 5:45 PM [facility] RDW-CV 12.9 11.3 - 14.8 % 04/11/2024 5:45 PM [facility] Platelet Count 214 150 - 420 x10E9/L 04/11/2024 5:45 PM [facility] MPV 8.8 7.8 - 11.4 fL 04/11/2024 5:45 PM [facility] Neutrophil % 58.4 41.0 - 74.0 % 04/11/2024 5:45 PM [facility] Lymphocyte % 30.4 17.0 - 47.0 % 04/11/2024 5:45 PM [facility] Monocyte % 6.3 3.0 - 11.0 % 04/11/2024 5:45 PM [facility] Eosinophil % 4.1 0.0 - 7.0 % 04/11/2024 5:45 PM [facility] Basophil % 0.6 0.0 - 1.6 % 04/11/2024 5:45 PM [facility] Immature Granulocytes % 0.2 0.0 - 1.0 % 04/11/2024 5:45 PM [facility] Neutrophil Absolute 5.00 1.60 - 7.50 x10E9/L 04/11/2024 5:45 PM [facility] Lymphocyte Absolute 2.60 1.00 - 4.40 x10E9/L 04/11/2024 5:45 PM [facility] Monocyte Absolute 0.54 0.15 - 1.00 x10E9/L 04/11/2024 5:45 PM [facility] Eosinophil Absolute 0.35 0.00 - 0.60 x10E9/L 04/11/2024 5:45 PM [facility] Basophil Absolute 0.05 0.00 - 0.13 x10E9/L 04/11/2024 5:45 PM CDT [facility] Blood BLOOD SPECIMEN / Unknown Lab Venipuncture / Unknown 04/11/2024 4:52 PM CDT 04/11/2024 5:28 PM CDT Don Manuel MD LAB - HEMATOLOGY ORD VICENTA Performing Organization Address City/[facility]/ZIP Co de Phone Number [facility] [address] [place] [address], [facility] [phone] * RHEUMATOID FACTOR BLOOD QUANTITATIVE (04/11/2024 4:52 PM CDT) Rheumatoid Factor <15 <30 IU/mL 04/11/2024 5:44 PM CDT [facility] Rheumatoid Factor Screen Negative Negative 04/11/2024 5:44 PM CDT [facility] Blood BLOOD SPECIMEN / Unknown Lab Venipuncture / Unknown 04/11/2024 4:52 PM CDT 04/11/2024 5:32 PM CDT Don Manuel MD LAB - CHEMISTRY CHRISTOPHER DE LA GARZA Performing Organization Address [facility]/ZIP Co de Phone Number [facility] [address] [place] [address], [place] [phone] * CYCLIC CITRUL PEPTIDE ANTIBODY IGG/IGA (CCP) (04/11/2024 4:52 PM CDT) CCP Antibodies IgG/IgA 4 0 - 19 units 04/13/2024 3:10 PM CDT [facility] ([facility]) Comment: ?Negative ? <20 ?Weak positive ?20 - 39 ?Moderate positive ??40 - 59 ?Strong positive ?>59 Blood BLOOD SPECIMEN / Unknown Lab Venipuncture / Unknown 04/11/2024 4:52 PM CDT 04/11/2024 5:31 PM CDT Narrative [facility] ([facility]) - 04/13/2024 3:10 PM CDT Performed at: ??01 - [facility] [address] [place], [place] ??[id number] Molding Line Assistant: Edison Chavez PhD, Phone: ??[phone] Don Manuel MD LAB - SEROLOGY ORDER GITA [facility] ([facility]) [address] [place] [address], [facility] * MYOSITIS ANTIBODY PANEL COMPREHENSIVE (04/11/2024 4:52 PM CDT) SAE1 (SUMO activating enzyme) Ab Negative Negative 04/19/2024 4:47 PM CDT [facility]) NXP2 (Nuclear matrix protein-2) Ab Negative Negative 04/19/2024 4:47 PM CDT [facility] MDA5 (CADM-140) Ab Negative Negative 2023 4:47 PM CDT [facility]) TIF-1 gamma (155 kDa) Ab Negative Negative 04/19/2024 4:47 PM CDT [facility]) Myositis Panel Interpretive Data See Note 04/19/2024 4:47 PM CDT [facility]) Comment: INTERPRETIVE INFORMATION: Extended Myositis Panel If [...] . . . . . . ??X Mike/PAINT STOCKMAN (SONU) Ab, IgG ??. . . . [...] . . . . ??X Fibrillarin (U3 PAINT STOCKMAN) Ab, IgG . . . . . [...] developed and its performance characteristics determined by [facility]. It has not been cleared or approved by the US Food and Drug Administration. This test was performed in a CLIA certified laboratory and is intended for clinical purposes. Mi-2 Antibody Negative Negative 04/19/2024 4:47 PM CDT [employer] ([facility]) P155/140 Antibody Negative Negative 024 4:47 PM CDT [facility] ([facility]) PL-12 Antibody Negative Negative 04/19/2024 4:47 PM CDT [facility] ([facility]) PL-7 Antibody Negative Negative 04/19/2024 4:47 PM CDT [facility] ([facility]) OJ Antibody Negative Negative 04/19/2024 4:47 PM CDT [facility] ([facility]) EJ Antibody Negative Negative 04/19/2024 4:47 PM CDT [facility] ([facility]) SRP Antibody Negative Negative 04/19/2024 4:47 PM CDT [facility] ([facility]) Susanne-1 Antibody IgG 0 0 - 40 AU/mL 04/19/2024 4:47 PM CDT [facility] ([facility]) Comment: INTERPRETIVE INFORMATION: ??Susanne-1 Antibody, IgG ??29 AU/mL or less.........Negative ??30-40 AU/mL..............Equivocal ??41 AU/mL or greater......Positive Presence of Susanne-1 (antihistidyl transfer RNA [t-RNA' synthetase) antibody is associated with polymyositis and may also be seen in patients with dermatomyositis. Susanne-1 antibody is associated with pulmonary involvement (interstitial lung disease), Raynaud phenomenon, arthritis, and chainsaw mechanic's hands (implicated in antisynthetase syndrome). KU Antibody Negative Negative 04/19/2024 4:47 PM CDT [facility] ([facility]) Mike/PAINT STOCKMAN (SONU) Antibody IgG 3 0 - 19 Units 04/19/2024 4:47 PM CDT [facility] ([facility]) Comment: INTERPRETIVE INFORMATION: Mike/PAINT STOCKMAN (SONU) Antibody, IgG ??19 Units or Less ............. Negative ??20 to 39 Units ............... Weak Positive ??40 to 80 Units ............... Moderate Positive ??81 Units or greater .......... Strong Positive Mike/PAINT STOCKMAN antibodies are frequently seen in patients with mixed connective tissue disease (MCTD) and are also associated with other systemic autoimmune rheumatic diseases (SARDs) such as systemic lupus erythematosus (SLE), systemic sclerosis, and myositis. Antibodies targeting the Mike/PAINT STOCKMAN antigenic complex also recognize Mike antigens, therefore, the Mike antibody response must be considered when interpreting these results. PM/Scl 100 Antibody IgG Negative Negative 04/19/2024 4:47 PM CDT [facility] ([facility]) Comment: INTERPRETIVE INFORMATION: PM/Scl-100 Antibody, IgG by [...] developed and its performance characteristics determined by [facility]. It has not been cleared or approved by the US Food and Drug Administration. This test was performed in a CLIA certified laboratory and is intended for clinical purposes. SS-A 52 Antibody 2 0 - 40 AU/mL 04/19/2024 4:47 [facility] ([facility]) Comment: INTERPRETIVE INFORMATION: SSA-52 (Ro52) (SONU) Antibody, [...] - 40 AU/mL 04/19/2024 4:47 PM CDT [facility] ([facility]) Comment: REFERENCE INTERVAL: SSA-60 (Ro60) (SONU) Antibody, IgG ??29 AU/mL or Less ............. Negative ??30 - 40 AU/mL ................ Equivocal ??41 AU/mL or Greater .......... Positive Fibrillarin (U3 PAINT STOCKMAN) Antibody IgG Negative Negative 04/19/2024 4:47 PM CDT [facility] ([facility]) Comment: Interpretive Information: Fibrillarin (U3 PAINT STOCKMAN) Antibody, IgG The presence of fibrillarin (U3-PAINT STOCKMAN) IgG antibodies in association with an AURY [...] a multi-ethnic cohort of SSc patients (n=98), U3-PAINT STOCKMAN antibodies detected by immunoblot had an agreement of 98.9 percent with the gold standard immunoprecipitation (IP) assay. Approximately 71 percent (5/7) of the borderline U3-PAINT STOCKMAN results with AURY nucleolar pattern in this cohort were IP negative. This test was developed and its performance characteristics determined by [facility]. It has not been cleared or approved by the US Food and Drug Administration. This test was performed in a CLIA certified laboratory and is intended for clinical purposes. Performed By: [facility] [address] [place] [address] Rawhide Trimmer: Sivakumar Levi MD, PhD CLIA Number: [id number] Blood BLOOD SPECIMEN / Unknown Lab Venipuncture / Unknown 04/11/2024 4:52 PM CDT 04/11/2024 5:31 PM CDT Don Manuel MD LAB - CHEMISTRY CHRISTOPHER DE LA GARZA [facility] [employer] ([facility]) [address] [place] [address], [facility] * HIV-1 HIV-2 ANTIBODY + HIV P24 AG PANEL (04/11/2024 4:52 PM CDT) HIV Antigen/Antibod y 1 & 2 Non-reacti ve Non-react teena 04/11/2024 6:04 PM CDT [facility] Comment:No Laboratory eviden ce of HIV infection. Blood BLOOD SPECIMEN / Unknown Lab Venipuncture / Unknown 04/11/2024 4:52 PM CDT 04/11/2024 5:32 PM CDT Don Manuel MD LAB - CHEMISTRY CHRISTOPHER DE LA GARZA [facility] [address] [place] [address], [facility] [phone] documented in this encounter Visit Diagnoses Diagnosis Abnormal CT of the chest- Primary Nonspecific (abnormal) findings on radiological and other examination of other intrathoracic organs Acute cough Abnormal CT of the chest Nonspecific (abnormal) findings on radiological and other examination of other intrathoracic organs Abnormal CT of the chest Nonspecific (abnormal) findings on radiological and other examination of other intrathoracic organs documented in this encounter Care Teams Knockup Worker Relationship Specialty Start Date End Date Blake Lindsey MD [address] [place] [address] PCP - General 05/20/16 documented as of this encounter
--- OUTSIDE RECORDS SUMMARY | 2024-07-29 17:20 | XMS_ITS | Encounter Summary ---
Author Organization [facility] Health Address [address] [facility] [place] [address] Care Team Providers Care Instructor Flying Name Role Phone Blake Lindsey MD Primary Care Provider [phone] Encounter Details Date Type Department Care Team (Latest Contact Info) Description 12/22/2023 Travel Social History Tobacco Use Types Packs/Day [...] on filedocumented in this encounter Care Teams Instructor Flying Relationship Specialty Start Date End Date Blake Lindsey MD [address] [place] [address] PCP - General 05/20/16 documented as of this encounter
--- OUTSIDE RECORDS SUMMARY | 2024-07-29 17:20 | XMS_ITS | Encounter Summary ---
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 Pt BIBself for limited ROM from pain in neck with difficulty moving head to right, limited ROM from pain in shoulder of arm, swelling to right hand. Encounter Details Date Type Department Care Team (Late st Contact Info) Description 01/11/2022 6:06 PM CDT - 01/11/2022 6:27 PM CDT Emergency [facility] [address] [place] [id number] Dorsalgia, unspecified Discharge Disposition: Left Against Medical Advice/Discontinued Care Social History Tobacco Use Types Packs/Day [...] Sign Reading Time Taken Comments Blood Pressure 100/74 01/11/2022 3:48 PM CDT Pulse 86 01/11/2022 3:48 PM CDT Temperature 36.4 ??C (97.5 ??F) 01/11/2022 3:48 PM CD T Respiratory Rate 16 01/11/2022 3:48 PM CDT Oxygen Saturation 98% 01/11/2022 3:48 PM CDT Inhaled Oxygen Concentration - - Weight 86.2 kg (190 lb) 01/11/2022 1:37 PM CDT Height 157.5 cm (5' 2 ) 01/11/2022 1:37 PM CDT Body Mass Index 34.75 01/11/2022 1:37 PM CDT documented in this encounter Functional [...] bilateral nares 22 g 1 03/17/2021 NYSTOP 216943 UNIT/GM powder Apply 1 Dose to affected [...] 2 03/09/2019 SUMAtriptan (IMITREX) 50 MG tabletIndications:Jatin pereze Take 1 tablet by mouth once as [...] fluticasone propionate (FLONASE) 50 MCG/ACT nasal spray [place] 2 sprays into each nostril once daily [...] 06/26/2020 08/05/2022 documented as of this encounter ED Notes * Layne Vasquez RN - 01/11/2022 6:20 PM CDT Call x2 * Genoveva Shaw - 01/11/2022 6:05 PM CDT Pt left AMA * Layne Vasquez RN - 01/11/2022 6:05 PM CDT Call x1 * Catherine Allison - 01/11/2022 3:49 PM CDT Pt continues to wait NAD noted documented in this encounter Plan of Treatment Not on file documented as of this encounter Visit Diagnoses Diagnosis Dorsalgia, unspecified documented in this encounter Administered Medications Inactive Administered Medications - up to 3 most recent administrations Medication Order MAR Action Action Date Dose Rate Site cyclobenzaprine (Flexeril) tablet 10 mg 10 mg, Oral, NOW, 1 dose, On 01/11/22 at 1400 $ Given 01/11/2022 4:07 PM CDT 10 mg ketorolac (Toradol) injection 15 mg 15 mg, Intramuscular, ONCE, 1 dose, On 01/11/22 at 1415 $ Given 01/11/2022 4:08 PM CDT 15 mg Right Deltoid lidocaine (Lidoderm) 5 % patch 2 patch 2 patch, Administer over 12 Hours, NOW, 1 dose, On 01/11/22 at 1400, Apply to right trap/neck region and remove patch after a max of 12 hours of application within a 24 hour period. $ Applied 01/11/2022 4:07 PM CDT 2 patches Right Neck documented in this encounter Active and Recently Administered Medications Times are shown in CDT. Scheduled Medication Order 01/09/2022 01/10/2022 01/11/2022 cyclobenzaprine (Flexeril) tablet 10 mg (COMPLETED) 10 mg, Oral, NOW, 1 dose, On 01/11/22 at 1400 1607 ($ Given - Prov ider: Lowell Bunn RN) ketorolac (Toradol) injection 15 mg (COMPLETED) 15 mg, Intramuscular, ONCE, 1 dose, On 01/11/22 at 1415 1608 ($ Given - Prov ider: Lowell Bunn RN) lidocaine (Lidoderm) 5 % patch 2 patch 2 patch, Administer over 12 Hours, NOW, 1 dose, On 01/11/22 at 1400, Apply to right trap/neck region and remove patch after a max of 12 hours of application within a 24 hour period. 1607 ($ Applied - Pr ovider: Lowell Bunn RN) documented in this encounter Care Teams Crown Blocker Relationship Specialty Start Date End Date Blake Lindsey MD [address] [place] [address] PCP - General 05/20/16 documented as of this encounter
--- OUTSIDE RECORDS SUMMARY | 2024-07-29 17:20 | XMS_ITS | Encounter Summary ---
Author Organization [facility] Health Address [address] [place] [address] Care Team Providers Care Condenser Cleaner Name Role Phone Blake Lindsey MD Primary Care Provider [phone] Encounter Details Date Type Department Care Team (Latest Contact Info) Description 10/07/2022 9:04 AM DAIRY FEED SALES CONSULTANT - 10/07/2022 11:59 PM [facility] Encounter [facility] DI[facility]NOSTIC RAD CSM 1L [address] [facility] [facility] [place] [address] Jennifer Dia, PADishaC [address] [place] [id number] Discharge Disposition: Home or Self Care Social [...] mg by mouth as directed 07/14/2022 NYSTOP [id number] UNIT/GM powder Apply 1 Dose to affected [...] Priority Date/Time Associated Diagnosis Comments XR HAND RIGHT 3VW OR MORE Routine 10/07/2022 9:09 AM DAIRY FEED SALES CONSULTANT Bilateral hand pain documented in this encounter Results * XR HAND RIGHT 3VW OR MORE (10/07/2022 9:09 AM DAIRY FEED SALES CONSULTANT) Anatomical Region Laterality Modality Wrist / Hand Radiographic Jonna ging 10/07/2022 9:56 AM DAIRY FEED SALES CONSULTANT Impressions 10/07/2022 9:59 AM DAIRY FEED SALES CONSULTANT IMPRESSION: Minimal degenerative changes. > Interpreting Provider: Emil Malone MD on 10/07/2022 9:59 AM Narrative 10/07/2022 9:59 AM DAIRY FEED SALES CONSULTANT PROCEDURE: ??XR HAND LEFT 3VW OR MORE, XR HAND RIGHT 3VW OR MORE, DATE/TIME OF EXAM: ??10/07/2022 9:10 AM, LOCATION ??[facility] INDICATION: M79.641: Bilateral hand pain M79.642: [...] MORE,DATE/TIME OF EXAM: 10/07/2022 9:10 AM, LOCATION [facility] INDICATION: M79.641: Bilateral hand pain M79.642: [...] limb documented in this encounter Care Teams Condenser Cleaner Relationship Specialty Start Date End Date Blake Lindsey MD [address] [place] [address] PCP - General 05/20/16 documented as of this encounter
--- OUTSIDE RECORDS SUMMARY | 2024-07-29 17:20 | XMS_ITS | Encounter Summary ---
Author Organization [facility] Health Address [address] [place] [address] Care Team Providers Care Hose Tender Name Role Phone Blake Lindsey MD Primary Care Provider [phone] Reason for Visit * Reason Onset Date Comments Results 10/05/2022 Encounter Details Date Type Department Care Team (Late st Contact Info) Description 10/05/2022 Telephone [facility] [address] [place] [address] Jaun Mascorro MD [facility] [place] [address] Results Social History Tobacco Use Types Packs/Day Years [...] * Telephone Encounter - Martha Lezama - 10/05/2022 11:10 AM CST Please call patient with results of biopsy. CUTTER documented in this encounter Plan of Treatment Not on file documented as of this encounter Visit Diagnoses Not on filedocumented in this encounter Care Teams Hose Tender Relationship Specialty Start Date End Date Blake Lindsey MD [address] [place] [address] PCP - General 05/20/16 documented as of this encounter
--- OUTSIDE RECORDS SUMMARY | 2024-07-29 17:20 | XMS_ITS | Encounter Summary ---
Author Organization [facility] Health Address [address] [place] [address] Care Team Providers Care Station Captain Name Role Phone Blake Lindsey MD Primary Care Provider [phone] Reason for Visit * Reason Comments Refill Request Encounter Details Date Type Department Care Team (Late st Contact Info) Description 12/09/2022 Refill [facility] Sleep Disorder [place] [address] [place] [address] Lowell Pop MD [address] OF PULMONARY/CRITICAL CARE [place], [place] [id number] Refill Request Social History Tobacco Use Types [...] on filedocumented in this encounter Care Teams Station Captain Relationship Specialty Start Date End Date Blake Lindsey MD [address] [place] [address] PCP - General 05/20/16 documented as of this encounter
--- OUTSIDE RECORDS SUMMARY | 2024-07-29 17:20 | XMS_ITS | Encounter Summary ---
Author Organization [facility] Health Address [address] [place] [address] Care Team Providers Care Templer Head Name Role Phone Blake Lindsey MD Primary Care Provider [phone] Reason for Referral * Procedure (Routine) - Closed Specialty Diagnoses / Procedures Referred By Contac t Referred To Contact Pulmonary Disease Diagnoses Abnormal CT of the chest Procedures SIX MINUTE WALK Don Manuel MD [address] [facility] 2L DIV OF PULMONARY/[place] [address] [facility] [address] [place] [address] Referral ID Status Reason Start Date Expiration Date Visits Re quested Visits Authorized [id number] Closed 04/11/2024 04/11/2025 1 1 * Procedure (Routine) - Closed Specialty Diagnoses / Procedures Referred By Contac t Referred To Contact Pulmonary Disease Diagnoses Abnormal CT of the chest Procedures COMPLETE PFT W/WO BRONCHODILATOR Don Manuel MD [address] [facility] 2L DIV OF PULMONARY/[place] [address] [facility] [address] [place] [address] Referral ID Status Reason Start Date Expiration Date Visits Re quested Visits Authorized [id number] Closed 04/11/2024 04/11/2025 1 1 Reason for Visit * Procedure (Routine) - Closed Specialty Diagnoses / Procedures Referred By Contac t Referred To Contact Pulmonary Disease Diagnoses Abnormal CT of the chest Procedures COMPLETE PFT W/WO BRONCHODILATOR Don Manuel MD [address] [facility] 2L DIV OF PULMONARY/[place] [address] [facility] [address] [place] [address] Referral ID Status Reason Start Date Expiration Date Visits Re quested Visits Authorized [id number] Closed 04/11/2024 04/11/2025 1 1 Encounter Details Date Type Department Care Team (Latest Contact Info) Description 05/22/2024 8:00 AM CDT - 05/22/2024 9:54 AM CDT Hospital Encounter [facility] [address] [place] [phone] Don Manuel MD [address] [facility] 2L DIV OF PULMONARY/[place] [address] Discharge Disposition: Home or Self Care Social [...] mg by mouth as directed 07/14/2022 NYSTOP 229963 UNIT/GM powder Apply 1 Dose to affected [...] Insomnia 06/26/2020 Vitamin D3 (Cholecalciferol) 50 MCG (2000 UT) capsuleIndications:Vit tapia D deficiency TAKE 1 CAPSULE BY MOUTH EVERY DAY 90 capsule 3 08/31/2023 Xtampza ER 13.5 MG capsule Take 1 (one) capsule by mouth every 12 hours 07/27/2022 documented as of this encounter Procedure Notes * Dar Sheriff MD - 05/22/2024 12:11 PM CDTAssociated Order(s): AMBULATORY OXIMETRY Images from the original note were not included. * Dar Sheriff MD - 05/22/2024 12:10 PM CDTAssociated Order(s): SIX MINUTE WALK Images from the original note were not included. * Dar Sheriff MD - 05/22/2024 12:09 PM CDTAssociated Order(s): COMPLETE PFT W/WO BRONCHODILATOR Images from the original note were not included. documented in this encounter Plan of Treatment [...] Hunter MD - 05/22/2024 12:11 PM CDT [facility] DEPARTMENT OF PULMONARY, CRITICAL CARE, AND SLEEP [...] of Pulmonary, Critical Care, and Sleep Medicine [facility] I have personally reviewed and agree with the fellow's interpretation. Turner Hunter MD Narrative Turner Hunter MD - 05/22/2024 12:11 PM CDT Dar Sheriff MD ? 05/22/2024 ??9:26 PM Don Manuel MD RESPIRATORY THERAPY ORDERABLES * SIX MINUTE WALK (05/22/2024 12:10 PM CDT) Impressions Turner Hunter MD - 05/22/2024 12:10 PM CDT [facility] DEPARTMENT OF PULMONARY, CRITICAL CARE, AND SLEEP MEDICINE SIX MINUTE WALK TEST Lakeisha Alejandra 05/22/2024 Interpretation: The patient walked for 6 [...] Sheriff MD Pulmonary and Critical Care Fellow [facility] Pager Number [phone] I have personally reviewed and agree with the fellow's interpretation. Turner Hunter MD Narrative Turner Hunter MD - 05/22/2024 12:10 PM CDT Dar Sheriff MD ? 05/22/2024 ??9:26 PM Don Manuel MD RESPIRATORY THERAPY ORDERABLES * COMPLETE PFT W/WO BRONCHODILATOR (05/22/2024 12:09 PM CDT) Impressions Turner Hunter MD - 05/22/2024 12:09 PM CDT [facility] DEPARTMENT OF PULMONARY, CRITICAL CARE, AND [...] of Pulmonary, Critical Care, and Sleep Medicine [facility] I have personally reviewed and agree with the fellow's interpretation. Turner Hunter MD Narrative Turner Hunter MD - 05/22/2024 12:09 PM CDT Dar Sheriff MD ? 05/22/2024 ??9:27 PM Don Manuel MD RESPIRATORY THERAPY ORDERABLES documented in this encounter Visit Diagnoses Diagnosis Abnormal CT of the chest Nonspecific (abnormal) findings on radiological and other examination of other intrathoracic organs documented in this encounter Care Teams Templer Head Relationship Specialty Start Date End Date Blake Lindsey MD [address] [place] [phone] PCP - General 05/20/16 documented as of this encounter
--- OUTSIDE RECORDS SUMMARY | 2024-07-29 17:20 | XMS_ITS | Encounter Summary ---
Author Organization [facility] Health Address [address] [facility] [place] [address] Care Team Providers Care Supplier Quality Name Role Phone Blake Lindsey MD Primary Care Provider [phone] Reason for Visit * Reason Onset Date Comments Appointment 04/12/2024 Encounter Details Date Type Department Care Team (Late st Contact Info) Description 04/12/2024 Telephone [facility] - Dermatology [address] [place] [address], [place] [phone] Jaun Mascorro MD [address] [place] [address] [address] [place] [address] Appointment Social History Tobacco Use Types Packs/Day [...] encounter Miscellaneous Notes * Telephone Encounter - dJ Trevizo - 04/19/2024 3:25 PM CDT Pt has been scheduled for 05/12/24 at 3:[address] Mascorro. Pt left detailed voicemail. Jd Trevizo * Telephone Encounter - Leana Phillips - 04/12/2024 3:55 PM CDT Current Provider: Allie Mascorro Reason for Call: Pt calling in concern of spot on left taoism turning into basal cell, soonest apptI could find was in July. Patient Call Back Number: [phone] documented in this encounter Plan of Treatment Not on file documented as of this encounter Visit Diagnoses Not on filedocumented in this encounter Care Teams Supplier Quality Relationship Specialty Start Date End Date Blake Lindsey MD [address] [place] [address] PCP - General 05/20/16 documented as of this encounter
--- OUTSIDE RECORDS SUMMARY | 2024-07-29 17:20 | XMS_ITS | Encounter Summary ---
Author Organization [facility] Health Address [address] [place] [address] Care Team Providers Care Radiological Equipment Specialist Name Role Phone Blake Lindsey MD Primary Care Provider [phone] Reason for Visit * Radiology Services (Urgent) - Closed Specialty Diagnoses / Procedures Referred By Ariel cano Referred To Contact Hematology-Oncology Diagnoses Hodgkin lymphoma, unspecified Hodgkin lymphoma type, unspecified body region (HCC) Procedures CT NECK SOFT TISSUE W CONT Ashish Peralta MD [address] [place] [address] OF HEMATOLOGY & [place] [address] Referral ID Status Reason Start Date Expiration Date Visits Re quested Visits Authorized [id number] Closed 06/09/2022 06/09/2023 1 1 Encounter Details Date Type Department Care Team (Late st Contact Info) Description 06/18/2022 2:50 PM GRAIN MANAGER - 06/18/2022 11:59 PM [facility] Hospital Encounter [facility] CAT SCAN [address] [place] [phone] Ashish Peralta MD [address] [place] [address] OF HEMATOLOGY & [place] [address] Discharge Disposition: Home or Self [...] bilateral nares 22 g 1 03/17/2021 NYSTOP [id number] UNIT/GM powder Apply 1 Dose to affected [...] fluticasone propionate (FLONASE) 50 MCG/ACT nasal spray [place] 2 sprays into each nostril once daily [...] 06/26/2020 08/05/2022 documented as of this encounter Progress Notes * Ashish Peralta MD - 06/18/2022 11:59 PM CST I appreciate communication with Dr. Solomon in ENT about patient's symptoms and neck CT findings. They will re-evaluate, appt made for 07/08/22. Ashish Peralta MD MSc pug machine operator Director of Bone Marrow Transplant and Cellular Therapy [facility] N MANAGER documented in this encounter Plan of Treatment Not on file documented as of this encounter Procedures Procedure Name Priority Date/Time Associated Diagnosis Comments CT NECK SOFT TISSUE W CONT DEMETRIO 06/18/2022 3:13 PM GRAIN MANAGER Hodgkin lymphoma, unspecified Hodgkin lymphoma type, unspecified body region (HCC) documented in this encounter Results * CT NECK SOFT TISSUE W CONT (06/18/2022 3:13 PM GRAIN MANAGER) Anatomical Region Laterality Modality Head Computed Tomogra phy 06/18/2022 3:25 PM GRAIN MANAGER Impressions 06/19/2022 1:26 PM GRAIN MANAGER IMPRESSION: ?? 1.Stable appearance of the 2 separate hyperdense/enhancing lesions in the superficial lobe of left parotid gland. 2.No significant cervical lymphadenopathy. > Dictated by Lisandro Burris M.D. (radiology practitioner assistant) Jaja Muller MD have personally reviewed and interpreted this examination/study. > Interpreting Provider: Jaja Akers MD on 06/19/2022 1:26 PM Narrative 06/19/2022 1:26 PM GRAIN MANAGER PROCEDURE: ??CT NECK SOFT TISSUE W CONT, DATE/TIME OF EXAM: ??06/18/2022 3:13 PM, LOCATION ??[facility] INDICATION: C81.90: Hodgkin lymphoma, unspecified Hodgkin [...] SPACE: Normal. PHARYNX/LARYNX/TRACHEA: Normal. RETROPHARYNGEAL SPACE: Normal. TURBINE MECHANIC SPACE: Normal. CAROTID SPACE: Retropharyngeal course [...] CONT, DATE/TIME OF EXAM: :13 PM, LOCATION [facility] INDICATION: C81.90: Hodgkin lymphoma, unspecified Hodgkin [...] SPACE: Normal. PHARYNX/LARYNX/TRACHEA: Normal. RETROPHARYNGEAL SPACE: Normal. TURBINE MECHANIC SPACE: Normal. CAROTID SPACE: Retropharyngeal course [...] lymphadenopathy. > Dictated by Lisandro Burris M.D. (radiology practitioner assistant) Jaja Muller MD have personally reviewed and interpreted this examination/study. > Interpreting Provider: Jaja Akers MD on 06/19/2022 1:26 PM Ashish Peralta MD CT ORDERABLES documented in this encounter Visit Diagnoses Diagnosis Hodgkin lymphoma, unspecified Hodgkin lymphoma type, unspecified body region (HCC) documented in this encounter Administered Medications Inactive Administered Medications - up to 3 most recent administrations Medication Order MAR Action Action Date Dose Rate Site iopamidol (Isovue 370) 76 % contrast Intravenous, CONTRAST ONCE, Starting on Kathleen 06/18/22 at 1453, Until 06/19/22 at 0136 $ Given - Contrast 06/18/2022 3:13 PM GRAIN MANAGER 100 mL documented in this encounter Care Teams Radiological Equipment Specialist Relationship Specialty Start Date End Date Blake Lindsey MD [address] [place] [address] PCP - General 05/20/16 documented as of this encounter
--- OUTSIDE RECORDS SUMMARY | 2024-07-29 17:20 | XMS_ITS | Encounter Summary ---
Author Organization [facility] Health Address [address] [facility] [place] [address] Care Team Providers Care Architect Internship Name Role Phone Blake Lindsey MD Primary Care Provider [phone] Reason for Visit * Reason Onset Date Comments Appointment 01/26/2023 Encounter Details Date Type Department Care Team (Late st Contact Info) Description 01/26/2023 Telephone [facility] - Dermatology [address] [place] [address], [place] [phone] Jaun Mascorro MD [address] [place] [address] [address] [place] [address] Appointment Social History Tobacco Use Types Packs/Day [...] encounter Miscellaneous Notes * Telephone Encounter - Jah Rascon - 02/16/2023 9:26 AM CDT Lvm 02/16/23 * Telephone Encounter - Jaun Mascorro MD - 02/15/2023 4:37 PM CDT Of note: if it is showing no appts available but there are open new visits, pt can have that slot. These slots canNOT be overbooked without approval. Options are: Mondays: N/a Tuesdays: February 16: as late in day as possible February 23: as late in day as possible Mar 02: as late in day as possible Wednesdays: February 24: 2:40 Mar 2nd: as late in am as possible, or as late in day as possible Mar 10: 3:00, 3:40 Sep 13th: afternoon any time Apr 28: afternoon any time Fridays: February 26: as late in day as possible Mar 05: as late in day as possible Mar 12: as late in day as possible Mar 19: as late in day as possible If none of those work, I can cont to look Thank you * Telephone Encounter - Tab Fernandez - 01/26/2023 4:50 PM CDT Patient has a past history of basal cell and has developed a new spot on her head. Patient is wanting to know if there is anyway she can be seen emerald by any provider. documented in this encounter Plan of Treatment Not on file documented as of this encounter Visit Diagnoses Not on filedocumented in this encounter Care Teams Architect Internship Relationship Specialty Start Date End Date Blake Lindsey MD [address] [place] [address] PCP - General 05/20/16 documented as of this encounter
--- OUTSIDE RECORDS SUMMARY | 2024-07-29 17:20 | XMS_ITS | Encounter Summary ---
Author Organization [facility] Health Address [address] [place] [address] Care Team Providers Care Cardroom Manager Name Role Phone Blake Lindsey MD Primary Care Provider [phone] Encounter Details Date Type Department Care Team (Latest Contact Info) Description 03/02/2023 Travel Social History Tobacco Use Types Packs/Day [...] on filedocumented in this encounter Care Teams Cardroom Manager Relationship Specialty Start Date End Date Blake Lindsey MD [address] [place] [address] PCP - General 05/20/16 documented as of this encounter
--- OUTSIDE RECORDS SUMMARY | 2024-07-29 17:20 | XMS_ITS | Encounter Summary ---
Author Organization [facility] Health Address [address] [place] [address] Care Team Providers Care Cold Patcher Name Role Phone Blake Lindsey MD Primary Care Provider [phone] Encounter Details Date Type Department Care Team (Late st Contact Info) Description 01/27/2022 Orders Only [facility] [address] [place] [address] Abhilash Roca MD [address] [address] Social History Tobacco Use Types Packs/Day Years [...] as of this encounter Progress Notes * Westley Hurtado RN - 01/27/2022 10:21 AM CDT Error documented in this encounter Plan of Treatment Not on file documented as of this encounter Visit Diagnoses Not on filedocumented in this encounter Care Teams Cold Patcher Relationship Specialty Start Date End Date Blake Lindsey MD [address] [place] [address] PCP - General 05/20/16 documented as of this encounter
--- OUTSIDE RECORDS SUMMARY | 2024-07-29 17:20 | XMS_ITS | Encounter Summary ---
Author Organization [facility] Health Address [address] [facility] [place] [address] Care Team Providers Care Child Daycare Worker Name Role Phone Blake Lindsey MD Primary Care Provider [phone] Encounter Details Date Type Department Care Team (Late st Contact Info) Description 08/24/2022 Orders Only [facility] - Orthopedics [address] [facility], [facility] [place] [address] Jennifer Dia PA-C [facility] [place] [address] Bilateral hand pain Social History Tobacco Use Types Packs/Day Years [...] documented as of this encounter Results * XR HAND LEFT 3VW OR MORE (10/07/2022 9:10 AM SHIP PILOT DISPATCHER) Anatomical Region Laterality Modality Wrist / Hand Radiographic Jonna ging 10/07/2022 9:56 AM SHIP PILOT DISPATCHER Impressions 10/07/2022 9:59 AM SHIP PILOT DISPATCHER IMPRESSION: Minimal degenerative changes. > Interpreting Provider: Emil Malone MD on 10/07/2022 9:59 AM Narrative 10/07/2022 9:59 AM SHIP PILOT DISPATCHER PROCEDURE: ??XR HAND LEFT 3VW OR MORE, XR HAND RIGHT 3VW OR MORE, DATE/TIME OF EXAM: ??10/07/2022 9:10 AM, LOCATION ??[facility] INDICATION: M79.641: Bilateral hand pain M79.642: Bilateral [...] MORE,DATE/TIME OF EXAM: 10/07/2022 9:10 AM, LOCATION [facility] INDICATION: M79.641: Bilateral hand pain M79.642: Bilateral [...] Malone MD on 10/07/2022 9:59 AM Jennifer DUVALL-Luz Maria DIAGNOSTIC IMAGING ORDERABLES * XR HAND RIGHT 3VW OR MORE (10/07/2022 9:09 AM SHIP PILOT DISPATCHER) Anatomical Region Laterality Modality Wrist / Hand Radiographic Jonna ging 10/07/2022 9:56 AM SHIP PILOT DISPATCHER Impressions 10/07/2022 9:59 AM SHIP PILOT DISPATCHER IMPRESSION: Minimal degenerative changes. > Interpreting Provider: Emil Malone MD on 10/07/2022 9:59 AM Narrative 10/07/2022 9:59 AM SHIP PILOT DISPATCHER PROCEDURE: ??XR HAND LEFT 3VW OR MORE, XR HAND RIGHT 3VW OR MORE, DATE/TIME OF EXAM: ??10/07/2022 9:10 AM, LOCATION ??[facility] INDICATION: M79.641: Bilateral hand pain M79.642: Bilateral [...] MORE,DATE/TIME OF EXAM: 10/07/2022 9:10 AM, LOCATION [facility] INDICATION: M79.641: Bilateral hand pain M79.642: Bilateral hand pain ADDITIONAL CLINICAL INFORMATION: Ordering Provider Reason For Exam: [facility] PAIN Technologist Note: Additional: [...] AM Jennifer Dia PA-C DIAGNOSTIC IMAGING ORDERABLES documented in this encounter Visit Diagnoses Diagnosis Bilateral hand pain- Primary Pain in limb Bilateral hand pain Pain in limb Bilateral hand pain Pain in limb documented in this encounter Care Teams Child Daycare Worker Relationship Specialty Start Date End Date Blake Lindsey MD [address] [place] [address] PCP - General 05/20/16 documented as of this encounter
--- OUTSIDE RECORDS SUMMARY | 2024-07-29 17:20 | XMS_ITS | Encounter Summary ---
Author Organization [facility] Health Address [address] [place] [address] Care Team Providers Care Garbage Collector Name Role Phone Blake Lindsey MD Primary Care Provider [phone] Reason for Referral * Consultation (Routine) - Closed Specialty Diagnoses / Procedures Referred By Ariel cano Referred To Contact Dermatology Diagnoses Basal cell carcinoma (BCC) of scalp Abhilash Roca MD [address] [phone] Domingo Apodaca MD [address] [facility] [address] [place] [address] Referral ID Status Reason Start Date Expiration Date V isits Requested Visits Authorized [id number] Closed Specialty Services Required 01/27/2022 01/27/2023 1 1 Encounter Details Date Type Department Care Team (Late st Contact Info) Description 01/27/2022 9:45 AM CDT Office Visit [facility] Hematology and Oncology[address] [id number] Abhilash Roca MD [address] [phone] Basal cell carcinoma (BCC) of scalp (Primary Dx) Social History Tobacco Use Types [...] Sign Reading Time Taken Comments Blood Pressure 115/80 01/27/2022 9:36 AM CDT Pulse 97 01/27/2022 9:36 AM CDT Temperature 36.4 ??C (97.6 ??F) 01/27/2022 9:36 AM CD T Respiratory Rate 20 01/27/2022 9:36 AM CDT Oxygen Saturation 97% 01/27/2022 9:36 AM CDT Inhaled Oxygen Concentration - - Weight 83.9 kg (185 lb) 01/27/2022 9:36 AM CDT Height 158.8 cm (5' 2.5 ) 01/27/2022 9:36 AM CDT Body Mass Index 33.3 01/27/2022 9:36 AM CDT documented in this encounter Functional [...] this encounter Patient Instructions * Patient Instructions* Abhilash Roca MD - 01/27/2022 10:15 AM CDT Follow up one year. documented in this encounter Progress Notes * Abhilash Roca MD - 01/27/2022 3:22 PM CDT [facility] Hematology/Oncology Clinic Date: 01/27/2022 Patient Name: Lakeisha Alejandra Date of : 1970 Floor Finisher Helper/Oncologist: Abhilash Roca MD Primary Care Provider: Blake Lindsey MD Summary and Interval History: Lakeisha Alejandra is a 51 year old female with a new onset of 0.5 cm basal cell carcinoma of skin on the of scalp detected by her plastic surgeon at [facility] in [place], [place] on 12/09/2021. She was found to have 2 benign tumors in left parotid gland on 11/04/2020. She comes with daughter. Past History: She has a history of classic Hodgkin Lymphoma, stage IV, IPS 3 with biopsy- proven stage IV soft tissue/bone disease, relatively rapid growth, diagnosed in September 2012. Underwent extensive spine surgery with fixation at that point. Started escalated BEACOPP 11/29/12 and completed 03/20/13. She receiveddose reduction cycles 4-6 (one dose level 4 and 5, two dose levels 6) due to febrile neutropenia inspite of growth factor support and grade IV thrombocytopenia with platelet transfusion refractoriness. Course was complicated by E.coli bacteremia requiring port removal. Patient underwent workup for a L cervical LN enlargement and unfortunately suffered a severe case of COVID pneumonia. She was seen by ENT for the L LN and underwent biopsy in 10/2020, revealing hematopoietic elements with some atypical forms. Following this, she became severely ill with COVID-19 infection in 01/1012. She required hospitalization and was on HFNC and BiPAP. She was never intubated, but reports that it was close. She remained hospitalized for 14 days and was discharged home on oxygen. She was able to stop oxygen 5 weeks ago and her most recent pulmonary studies were apparently very good. She feels mostly back to normal with some occasional dyspnea on exertion. Review of Systems: Review of Systems (all negative except bolded) GENERAL: No fevers, chills, change in weight, change in appetite. SKIN: No rash, pruritus EENT: No blurry vision, change in vision, tinnitus, rhinitis, epistaxis, sinusitis NECK: No pain, stiffness, lumps RESPIRATORY: No dyspnea, wheezing CARDIAC: No chest pain, palpitations, dyspnea GI: No pain, nausea, vomiting, melena, hematochezia, hematemesis URINARY: No dysuria, hematuria HEME: No anemia, easy bruising, bleeding VASCULAR: no pain or swelling in extremities MSK: No muscle or joint pain, stiffness NEURO: No weakness, dizziness, speech or memory complaints, seizures. Current Outpatient Medications on File Prior to Visit Medication Sig Dispense Refill ??? albuterol (PROVENTIL;VENTOLIN) (2.5 MG/3ML) 0.083% nebulizer solution INHALE 3 ML BY NEBULIZATION 3 TIMES DAILY Reasons: Disease Involving Spasms of the Bronchus (Patient taking differently: Inhale 2.5 mg by mouth 3 times daily as [...] 20 mg by mouth once daily ??? ferrous sulfate 325 (65 FE) MG tablet Take 1 (one) tablet by mouth once daily Take one tablet at the same time as your Vitamin C (ascorbic acid). 90 tablet 3 ??? fluticasone propionate (FLONASE) 50 MCG/ACT nasal spray Eclectic 2 sprays into each nostril once daily 16 g 5 ??? furosemide (LASIX) 20 MG tablet Take 1 tablet by mouth once daily Reasons: Edema 30 tablet 0 ??? gabapentin (NEURONTIN) 300 MG capsule Take 300 mg by mouth 3 times daily ??? lubiprostone (AMITIZA) 24 MCG capsule Take 24 mcg by [...] Reported on 08/26/2021) 22 g 1 ??? NYSTOP [id number] UNIT/GM powder Apply 1 Dose to affected [...] bedtime Reasons: Major DepressiveDisorder (Patient not taking: Reported on 08/14/2021) 30 tablet 0 ??? QUEtiapine (SEROQUEL) 200 MG tablet Take 200 mg by mouth at bedtime ??? spironolactone [...] numb Vital Signs and Physical Exam: Vitals: 01/27/22 0936 BP: 115/80 Pulse: 97 Resp: 20 Temp: 97.6 ??F (36.4 ??C) SpO2: 97% Weight: 83.9 kg (185 lb) Height: 1.588 m (5' 2.5 ) ECOG=0 Physical Exam General: She is obese. NAD, awake and alert, cooperative, fluent speech, appears states age EENT: Anicteric sclera, conjunctiva pink, moist mucosa membranes, oral mucosa pink Neck: one left cervical node 1 cm, supraclavicular LAD. Resp: CTAB, no wheezing or crackles, no increased work of breathing CV: RRR, normal S1 and S2, no murmurs/rubs/clicks, no LE edema Abd: +BS, soft, non-tender to palpation, no distention, no guarding or rebound tenderness Ext: Moving all extremities spontaneously Neuro: Alert and oriented to person/place/time, grossly intact Skin: one 0.5 cm wound at the top part of her head on the scalp slightly to left side. Labs: Pathology: 11/04/20: Final Diagnosis Lymph node, left parotid, US-guided FNA: - Neoplasm: Benign (see comment). Lymph node, left level 2B 'deep left cervical', US-guided FNA: - Mixed hematopoietic elements with some atypical forms (see comment). Recent Labs Component Name 01/27/22 1027 06/05/21 [...] = values in this interval not displayed. Recent Labs Component Name 09/11/20 1232 01/19/19 1514 04/17/172008 INR 1.1 1.0 1.1 Recent Labs Component Name 01/19/19 1514 04/17/17200806/15/14 1930 PTT 31.0 32.6 36.2 Microscopic Description Parotid (A), direct smears (4) [...] evidence of non-Hodgkin lymphoma. - See interpretation. Imaging: PET/CT 02/13/19: IMPRESSION: 1. No definite PET/CT evidence of malignancy (Deauville Score 1). 2. Mildly FDG avid left-sided subcentimeter intraparotid nodule. Findings may represent a benign entity such as a Warthin tumor. 3. Small region of increased FDG uptake on inferior medial right breast with associated skin thickening on CT which may represent infectious/inflammatory process. Recommend clinical correlation. Assessment and Plan: 49 year old female with classic Hodgkin Lymphoma, stage IV, IPS 3 with biopsy- proven stage IV soft tissue/bone disease, s/p escalated BEACOPP with subsequent remission, currently on clinical surveillance and presenting for interval follow-up. # History of Classic Hodgkin lymphoma in year 2012- Clinical Remission -Plan: - Labs reviewed today, unremarkable except slightly elevated calcium, monitor - Follow up in 1 year for laboratory and clinical surveillance # 2 benign L Parotid Lesions Plan: - Recommended follow up with ENT # 0.5 cm basal cell carcinoma of scalp. [facility]. She doesn't have insurance to go back to [facility] in [place], [place]. RTC in 1 year for labs and clinical surveillance with CBC, CMP. Abhilash Roca MD Oncology/hematology documented in this encounter Plan of Treatment Scheduled Referrals Name Type Priority Associated Diagnoses Orde r Schedule [facility] to [facility] Dr[facility] Apodaca - [facility] Outpatient Referral Routine Basal cell carcinoma (BCC) of scalp Ordered: 01/27/2022 documented as of this encounter Results * (ABNORMAL) COMPREHENSIVE METABOLIC PANEL (01/27/2022 10:27 AM [facility]) BUN 10 7 - 26 mg/dL 01/27/2022 11:04 AM [facility] Creatinine 0.69 0.56 - 0.96 mg/dL 01/27/2022 11:04 AM [facility] Sodium 145 136 - 145 mmol/L 01/27/2022 11:04 AM [facility] Potassium 3.3(L) 3.5 - 4.5 mmol/L 01/27/2022 11:04 AM [facility] Chloride 110(H) 98 - 107 mmol/L 01/27/2022 11:04 AM [facility] CO2 24 22 - 29 mmol/L 01/27/2022 11:04 AM [facility] Glucose 131(H) 70 - 115 mg/dL 01/27/2022 11:04 AM [facility] Calcium 9.8 8.4 - 10.2 mg/dL 01/27/2022 11:04 AM [facility] Protein Total 7.3 6.0 - 8.3 g/dL 01/27/2022 11:04 AM [facility] Albumin 3.8 3.4 - 5.0 g/dL 01/27/2022 11:04 AM [facility] Bilirubin Total 0.5 0.2 - 1.2 mg/dL 01/27/2022 11:04 AM [facility] Alkaline Phosphatase 84 40 - 150 U/L 01/27/2022 11:04 AM [facility] ALT 13 5 - 55 U/L 01/27/2022 11:04 AM [facility] AST 11 5 - 34 U/L 01/27/2022 11:04 AM [facility] Anion Gap 14 8 - 18 01/27/2022 11:04 AM [facility] BUN/Creatinine Ratio 14 7 - 23 01/27/2022 11:04 AM [facility] Osmolality Calculated 301(H) 270 - 300 mOsm/kg 01/27/2022 11:04 AM [facility] Albumin/Globulin Ratio 1.1 1.1 - 2.3 01/27/2022 11:04 AM [facility] eGFR by CKD-EPI >90 >=90 mL/min/1.7 3 m2 01/27/2022 11:04 AM [facility] Blood BLOOD SPECIMEN / Unknown Lab Venipuncture / Unknown 01/27/2022 10:27 AM CDT 01/27/2022 10:35 AM CDT [facility] - PIG STICKER RY ORDERABLES [facility] [address] [place] [id number], [facility] [phone] * (ABNORMAL) CBC WITH DIFFERENTIAL (01/27/2022 10:27 AM T) WBC 7.1 3.5 - 10.5 10? 3 /uL 01/27/2022 10:41 AM [facility] RBC 4.46 3.80 - 5.20 10? 6 /uL 01/27/2022 10:41 AM [facility] Hemoglobin 14.3 12.0 - 15.6 g/dL 01/27/2022 10:41 AM [facility] Hematocrit 42.2 35.0 - 45.0 % 01/27/2022 10:41 AM [facility] MCV 94.6 80.7 - 98.3 fL 01/27/2022 10:41 AM [facility] MCH 32.1 26.7 - 34.0 pg 01/27/2022 10:41 AM [facility] MCHC 33.9 30.8 - 35.9 g/dL 01/27/2022 10:41 AM [facility] Platelet Count 209 150 - 400 10? 3 /uL 01/27/2022 10:41 AM [facility] RDW-SD 43.3 36.0 - 50.0 fL 01/27/2022 10:41 AM [facility] RDW-CV 12.5 11.2 - 14.8 % 01/27/2022 10:41 AM [facility] MPV 9.0(L) 9.4 - 12.9 fL 01/27/2022 10:41 AM [facility] nRBC Absolute 0.00 0 10? 3 /uL 01/27/2022 10:41 AM [facility] nRBC Auto 0.0 0 /100 WBC 01/27/2022 10:41 AM [facility] Neutrophils % 65.9 35.0 - 70.0 % 01/27/2022 10:41 AM [facility] Lymphocytes % 23.2 20.0 - 43.0 % 01/27/2022 10:41 AM [facility] Monocytes % 6.3 5.0 - 13.0 % 01/27/2022 10:41 AM [facility] Eosinophils % 3.7 0.0 - 6.0 % 01/27/2022 10:41 AM [facility] Basophil % 0.6 0.0 - 2.0 % 01/27/2022 10:41 AM [facility] Neutrophils Absolute 4.70 1.60 - 7.00 10? 3 /uL 01/27/2022 10:41 AM [facility] Lymphocyte Absolute 1.65 1.10 - 3.90 10? 3 /uL 01/27/2022 10:41 AM [facility] Monocytes Absolute 0.45 0.26 - 1.07 10? 3 /uL 01/27/2022 10:41 AM [facility] Eosinophils Absolute 0.26 0.00 - 0.47 10? 3 /uL 01/27/2022 10:41 AM [facility] Basophils Absolute 0.04 0.00 - 0.08 10? 3 /uL 01/27/2022 10:41 AM [facility] Immature Granulocytes % 0.3 0.0 - 1.0 % 01/27/2022 10:41 AM [facility] Immature Granulocytes Absolute 0.02 01/27/2022 10:41 AM [facility] Blood BLOOD SPECIMEN / Unknown Lab Venipuncture / Unknown 01/27/2022 10:27 AM CDT 01/27/2022 10:35 AM CDT [facility] - HEMATOL OGY ORDERABLES [address] [phone], [facility] [phone] documented in this encounter Visit Diagnoses Diagnosis Basal cell carcinoma (BCC) of scalp- Primary documented in this encounter Care Teams Garbage Collector Relationship Specialty Start Date End Date Blake Lindsey MD [address] [place] [address] PCP - General 05/20/16 documented as of this encounter
--- OUTSIDE RECORDS SUMMARY | 2024-07-29 17:20 | XMS_ITS | Encounter Summary ---
Author Organization [facility] Health Address [address] [place] [address] Care Team Providers Care Quality Assurance Auditor Name Role Phone Blake Lindsey MD Primary Care Provider [phone] Encounter Details Date Type Department Care Team (Latest Contact Info) Description 04/11/2024 4:35 PM CDT - 04/11/2024 11:59 PM CDT Hospital Encounter [facility] OP DRAW STATION [address] [place] [phone] Discharge Disposition: Home or Self Care Social [...] mg by mouth as directed 07/14/2022 NYSTOP 960990 UNIT/GM powder Apply 1 Dose to affected [...] Procedure Name Priority Date/Time Associated Diagnosis Comments SS-A (SJOGREN'S) 52+60 ANTIBODIES Routine 04/11/2024 4:[address] of the chest MIKE/INFORMATION SYSTEMS PLANNER (SONU) ANTIBODY IGG Routine 04/11/2024 4:[address] of the chest MYOSITIS ANTIBODY PANEL COMPREHENSIVE Routine 04/11/2024 4:[address] of the chest SMOOTH MUSCLE ANTIBODY W REFLEX TITER Routine 04/11/2024 4:[address] of the chest CYCLIC CITRUL PEPTIDE ANTIBODY IGG/IGA (CCP) Routine 04/11/2024 4:[address] of the chest DNA ANTIBODY DS CRITHIDIA TITER Routine 04/11/2024 4:[address] of the chest PNEUMONITIS HYPERSENSITIVE PANEL Routine 04/11/2024 4:[address] of the chest Acute cough RHEUMATOID FACTOR BLOOD QUANTITATIVE Routine 04/11/2024 4:[address] of the chest AURY BLOOD SCREEN W/REFLEX TITER Routine 04/11/2024 4:[address] of the chest SS-B (SJOGREN'S) ANTIBODY Routine 04/11/2024 4:[address] of the chest CBC W AUTO DIFFERENTIAL Routine 04/11/20 4:[address] of the chest documented in this encounter Results * PNEUMONITIS HYPERSENSITIVE PANEL (04/11/2024 4:52 PM CDT) Pathologist [facility] Allergen Feather Mix Negative Negative kU/L 04/17/2024 1:59 AM CDT [facility] ([facility]) Aspergillus fumigatus 1 None Detected None Detected 04/17/2024 1:59 AM CDT [facility] ([facility]) Aspergillus fumigatus 6 See Note None Detected 04/17/2024 1:59 AM CDT [facility] ([facility]) Comment: A. fumigatus #6 Ab, Precipitin testing not performed due to reagent backorder. A credit will be issued for this component. Aureobasidium Pullulans None Detected None Detected 04/17/2024 1:59 AM CDT [facility] ([facility]) Argyle Serum None Detected None Detected 04/17/2024 1:59 AM CDT [facility] ([facility]) Micropolyspora faeni None Detected None Detected 04/17/2024 1:59 AM CDT [facility] ([facility]) Aspergillus flavus None Detected None Detected 04/17/2024 1:59 AM CDT [facility] ([facility]) Aspergillus fumigatus 2 None Detected None Detected 04/17/2024 1:59 AM CDT [facility] ([facility]) Aspergillus fumigatus 3 None Detected None Detected 04/17/2024 1:59 AM CDT [facility] ([facility]) Saccharomonospora viridis None Detected None Detected 04/17/2024 1:59 AM CDT [facility] ([facility]) Thermoactinomyces candidus None Detected None Detected 04/17/2024 1:59 AM CDT [facility] ([facility]) Comment: Testing includes antibodies directed at Aureobasidium pullulans, Aspergillus flavus, Aspergillus fumigatus #1, Aspergillus fumigatus #2, Aspergillus fumigatus #3, Aspergillus fumigatus #6, Micropolyspora faeni, Argyle Serum, Saccharomonospora viridis, and Thermoactinomyces candidus. Allergen Phoma betae <0.10 <=0.34 kU/L 04/17/2024 1:59 AM CDT [facility] ([facility]) Allergen Beef <0.10 <=0.34 kU/L 04/17/2024 1:59 AM CDT [facility] ([facility]) Allergen Pork <0.10 <=0.34 kU/L 04/17/2024 1:59 AM CDT [facility] ([facility]) Immunocap Score See Note 1:59 AM CDT [facility] ([facility]) Comment: REFERENCE INTERVAL: Allergen, Interpretation Less [...] clinical allergy or even anaphylaxis. Performed By: [facility] [address] [place] [address] Senior Mechanical Project Engineer: Sivakumar Levi MD, PhD CLIA Number: [id number] Blood BLOOD SPECIMEN / Unknown Lab Venipuncture / Unknown 04/11/2024 4:52 PM CDT 04/11/2024 5:31 PM CDT Don Manuel MD LAB - CHEMISTRY CHRISTOPHER DE LA GARZA [facility] Organization Address City/State/ZIP Co de Phone Number [facility]) [address] [place] [address] * AURY BLOOD SCREEN W/REFLEX TITER (04/11/2024 4:52 PM CDT) AURY IgG None Detected None Detected 04/13/2024 3:43 PM CDT [facility] ([facility]) Comment: If suspicion of connective tissue disease is strong and AURY EIA is negative, consider testing for AURY by IFA ([id number]). INTERPRETIVE INFORMATION: Anti-Nuclear Antibodies (AURY), IgG by SINCERE Antinuclear Antibodies (AURY), IgG by SINCERE: AURY specimens are screened using enzyme-linked immunosorbent assay (SINCERE) methodology. All SINCERE results reported as Detected are further tested by indirect fluorescent assay (IFA) using HEp-2 substrate with an IgG-specific conjugate. The AURY SINCERE screen is designed to detect antibodies against dsDNA, histones, SS-A (Ro), SS-B (La), Mike, Mike/INFORMATION SYSTEMS PLANNER, Scl-70, Susanne-1, centromeric proteins, other antigens extracted from the HEp-2 cell nucleus. AURY SINCERE assays have been reported to have lower sensitivities than AURY IFA for systemic autoimmune rheumatic diseases (SARD). Negative results do not necessarily rule out SARD. Performed By: [facility] [address] [place] [address] [place] [address] Senior Mechanical Project Engineer: Sivakumar Levi MD, PhD CLIA Number: [id number] Blood BLOOD SPECIMEN / Unknown Lab Venipuncture / Unknown 04/11/2024 4:52 PM CDT 04/11/2024 5:32 PM CDT Don Manuel MD LAB - CHEMISTRY CHRISTOPHER DE L AGARZA [facility] Organization Address City/State/ZIP Co de Phone Number [facility] ([facility]) [address] [place] [address], [facility] * CBC W/ DIFFERENTIAL (04/11/2024 4:52 PM CDT) WBC 8.6 4.0 - 10.7 x10E9/L 04/11/2024 5:[address] [facility] RBC Count 4.62 3.90 - 5.20 x10E12/L 04/11/2024 5:[address] [facility] Hemoglobin 15.1 11.9 - 15.8 g/dL 04/11/2024 5:[address] [facility] Hematocrit 43.2 34.8 - 46.1 % 04/11/2024 5:[address] [facility] MCV 93.5 80.0 - 98.0 fL 04/11/2024 5:[address] [facility] MCH 32.7 26.7 - 33.6 pg 04/11/2024 5:[address] [facility] MCHC 35.0 31.7 - 36.3 g/dL 04/11/2024 5:[address] [facility] RDW-CV 12.9 11.3 - 14.8 % 04/11/2024 5:[address] [facility] Platelet Count 214 150 - 420 x10E9/L 04/11/2024 5:45 PM [facility] MPV 8.8 7.8 - 11.4 fL 04/11/2024 5:[address] [facility] Neutrophil % 58.4 41.0 - 74.0 % 04/11/2024 5:[address] [facility] Lymphocyte % 30.4 17.0 - 47.0 % 04/11/2024 5:[address] [facility] Monocyte % 6.3 3.0 - 11.0 % 04/11/2024 5:[address] [facility] Eosinophil % 4.1 0.0 - 7.0 % 04/11/2024 5:[address] [facility] Basophil % 0.6 0.0 - 1.6 % 04/11/2024 5:[address] [facility] Immature Granulocytes % 0.2 0.0 - 1.0 % 04/11/2024 5:[address] [facility] Neutrophil Absolute 5.00 1.60 - 7.50 x10E9/L 04/11/2024 5:[address] [facility] Lymphocyte Absolute 2.60 1.00 - 4.40 x10E9/L 04/11/2024 5:[address] [facility] Monocyte Absolute 0.54 0.15 - 1.00 x10E9/L 04/11/2024 5:[address] [facility] Eosinophil Absolute 0.35 0.00 - 0.60 x10E9/L 04/11/2024 5:[address] [facility] Basophil Absolute 0.05 0.00 - 0.13 x10E9/L 04/11/2024 5:[address] [facility] Blood BLOOD SPECIMEN / Unknown Lab Venipuncture / Unknown 04/11/2024 4:52 PM CDT 04/11/2024 5:28 PM CDT Don Manuel MD LAB - HEMATOLOGY ORD ERABLES [facility] [address] [place] [phone], [facility] [phone] * RHEUMATOID FACTOR BLOOD QUANTITATIVE (04/11/2024 4:52 PM CDT) Rheumatoid Factor <15 <30 IU/mL 04/11/2024 5:[address] [facility] Rheumatoid Factor Screen Negative Negative 04/11/2024 5:[address] [facility] Blood BLOOD SPECIMEN / Unknown Lab Venipuncture / Unknown 04/11/2024 4:52 PM CDT 04/11/2024 5:32 PM CDT Don Manuel MD LAB - CHEMISTRY CHRISTOPHER DE LA GARZA [facility] [address] [phone], [facility] [phone] * CYCLIC CITRUL PEPTIDE ANTIBODY IGG/IGA (CCP) (04/11/2024 4:52 PM CDT) CCP Antibodies IgG/IgA 4 0 - 19 units 04/13/2024 3:10 PM CDT [facility] ([facility]) Comment: ?Negative ? <20 ?Weak positive ?20 - 39 ?Moderate positive ??40 - 59 ?Strong positive ?>59 Blood BLOOD SPECIMEN / Unknown Lab Venipuncture / Unknown 04/11/2024 4:52 PM CDT 04/11/2024 5:31 PM CDT Narrative [facility] ([facility]) - 04/13/2024 3:10 PM CDT Performed at: ??01 - [facility] [address] [place], [place] ??[id number] Director Revenue: Edison Chavez PhD, Phone: ??[phone] Don Manuel MD LAB - SEROLOGY ORDER GITA Performing Organization Address City/[facility]/ZIP Co de Phone Number [facility] ([facility]) [address] [place] [address] * MYOSITIS ANTIBODY PANEL COMPREHENSIVE (04/11/2024 4:52 PM CDT) SAE1 (SUMO activating enzyme) Ab Negative Negative 04/19/2024 4:[address] [facility] ([facility]) NXP2 (Nuclear matrix protein-2) Ab Negative Negative 04/19/2024 4:[address] [facility] ([facility]) MDA5 (CADM-140) Ab Negative Negative 2023 4:47 PM CDT [facility] ([facility]) TIF-1 gamma (155 kDa) Ab Negative Negative 04/19/2024 4:[address] [facility] ([facility]) Myositis Panel Interpretive Data See Note 04/19/2024 4:[address] [facility] ([facility]) Comment: INTERPRETIVE INFORMATION: Extended Myositis Panel If [...] . . . . . . ??X Mike/INFORMATION SYSTEMS PLANNER (SONU) Ab, IgG ??. . . . [...] . . . . ??X Fibrillarin (U3 INFORMATION SYSTEMS PLANNER) Ab, IgG . . . . . [...] developed and its performance characteristics determined by [facility]. It has not been cleared or approved by the US Food and Drug Administration. This test was performed in a CLIA certified laboratory and is intended for clinical purposes. Mi-2 Antibody Negative Negative 04/19/2024 4:47 PM CDT [facility]) P155/140 Antibody Negative Negative 024 4:47 PM CDT [facility]) PL-12 Antibody Negative Negative 04/19/2024 4:47 PM CDT [facility]) PL-7 Antibody Negative Negative 04/19/2024 4:47 PM CDT [facility]) OJ Antibody Negative Negative 04/19/2024 4:47 PM CDT [facility]) EJ Antibody Negative Negative 04/19/2024 4:47 PM CDT [facility]) SRP Antibody Negative Negative 04/19/2024 4:47 PM CDT [facility]) Susanne-1 Antibody IgG 0 0 - 40 AU/mL 04/19/2024 4:47 PM CDT [facility] ([facility]) Comment: INTERPRETIVE INFORMATION: ??Susnane-1 Antibody, IgG ??29 AU/mL or less.........Negative ??30-40 AU/mL..............Equivocal ??41 AU/mL or greater......Positive Presence of Susanne-1 (antihistidyl transfer RNA [t-RNA' synthetase) antibody is associated with polymyositis and may also be seen in patients with dermatomyositis. Susanne-1 antibody is associated with pulmonary involvement (interstitial lung disease), Raynaud phenomenon, arthritis, and automobile mechanic supervisor's hands (implicated in antisynthetase syndrome). KU Antibody Negative Negative 04/19/2024 4:47 PM CDT [facility] ([facility]) Mike/INFORMATION SYSTEMS PLANNER (SONU) Antibody IgG 3 0 - 19 Units 04/19/2024 4:[address] [facility] ([facility]) Comment: INTERPRETIVE INFORMATION: Mike/INFORMATION SYSTEMS PLANNER (SONU) Antibody, IgG ??19 Units or Less ............. Negative ??20 to 39 Units ............... Weak Positive ??40 to 80 Units ............... Moderate Positive ??81 Units or greater .......... Strong Positive Mike/INFORMATION SYSTEMS PLANNER antibodies are frequently seen in patients with mixed connective tissue disease (MCTD) and are also associated with other systemic autoimmune rheumatic diseases (SARDs) such as systemic lupus erythematosus (SLE), systemic sclerosis, and myositis. Antibodies targeting the Mike/INFORMATION SYSTEMS PLANNER antigenic complex also recognize Mike antigens, therefore, the Mike antibody response must be considered when interpreting these results. PM/Scl 100 Antibody IgG Negative Negative 04/19/2024 4:[address] [facility] ([facility]) Comment: INTERPRETIVE INFORMATION: PM/Scl-100 Antibody, IgG [...] developed and its performance characteristics determined by [facility]. It has not been cleared or approved by the US Food and Drug Administration. This test was performed in a CLIA certified laboratory and is intended for clinical purposes. SS-A 52 Antibody 2 0 - 40 AU/mL 04/19/2024 4:[address] [facility] ([facility]) Comment: INTERPRETIVE INFORMATION: SSA-52 (Ro52) (SONU) [...] - 40 AU/mL 04/19/2024 4:[address] [facility] ([facility]) Comment: REFERENCE INTERVAL: SSA-60 (Ro60) (SONU) Antibody, IgG ??29 AU/mL or Less ............. Negative ??30 - 40 AU/mL ................ Equivocal ??41 AU/mL or Greater .......... Positive Fibrillarin (U3 INFORMATION SYSTEMS PLANNER) Antibody IgG Negative Negative 04/19/2024 4:[address] [facility] ([facility]) Comment: Interpretive Information: Fibrillarin (U3 INFORMATION SYSTEMS PLANNER) Antibody, IgG The presence of fibrillarin (U3-INFORMATION SYSTEMS PLANNER) IgG antibodies in association with an AURY [...] a multi-ethnic cohort of SSc patients (n=98), U3-INFORMATION SYSTEMS PLANNER antibodies detected by immunoblot had an agreement of 98.9 percent with the gold standard immunoprecipitation (IP) assay. Approximately 71 percent (5/7) of the borderline U3-INFORMATION SYSTEMS PLANNER results with AURY nucleolar pattern in this cohort were IP negative. This test was developed and its performance characteristics determined by [facility]. It has not been cleared or approved by the US Food and Drug Administration. This test was performed in a CLIA certified laboratory and is intended for clinical purposes. Performed By: [facility] [address] [place] [address] Senior Mechanical Project Engineer: Sivakumar Levi MD, PhD CLIA Number: [id number] Blood BLOOD SPECIMEN / Unknown Lab Venipuncture / Unknown 04/11/2024 4:52 PM CDT 04/11/2024 5:31 PM CDT Don Manuel MD LAB - CHEMISTRY CHRISTOPHER DE LA GARZA [facility]) [address] [place] [address] * SS-B (SJOGREN'S) ANTIBODY (04/11/2024 4:52 PM CDT) SS-B Antibody 0 0 - 40 AU/mL 04/13/2024 9:51 PM CDT [facility]) Comment: INTERPRETIVE INFORMATION: SSB (La) (SONU) Ab, [...] (PSS) also have this antibody. Performed By: [facility] [address] [place] [address] Senior Mechanical Project Engineer: Sivakumar Levi MD, PhD CLIA Number: [id number] Blood BLOOD SPECIMEN / Unknown Lab Venipuncture / Unknown 04/11/2024 4:52 PM CDT 04/11/2024 5:31 PM CDT Don Manuel MD LAB - CHEMISTRY CHRISTOPHER DE LA GARZA [facility] Organization Address City/State/ZIP Co de Phone Number [facility]) [address] [place] [address] * SS-A (SJOGREN'S) 52+60 ANTIBODIES (04/11/2024 4:52 PM CDT) SS-A 52 Antibody 2 0 - 40 AU/mL 04/13/2024 10:22 PM CDT [facility] ([facility]) Comment: INTERPRETIVE INFORMATION: SSA-52 (Ro52) (SONU) [...] - 40 AU/mL 04/13/2024 10:22 PM CDT General Blood ([facility]) Comment: REFERENCE INTERVAL: SSA-60 (Ro60) (SONU) Antibody, IgG ??29 AU/mL or Less ............. Negative ??30 - 40 AU/mL ................ Equivocal ??41 AU/mL or Greater .......... Positive Performed By: [facility] [address] [place] [address] Senior Mechanical Project Engineer: Sivakumar Levi MD, PhD IA Number: [id number] Blood BLOOD SPECIMEN / Unknown Lab Venipuncture / Unknown 04/11/2024 4:52 PM CDT 04/11/2024 5:31 PM CDT Don Manuel MD LAB - CHEMISTRY CHRISTOPHER DE LA GARZA [facility] ([facility]) [address] * SMOOTH MUSCLE ANTIBODY W REFLEX TITER (04/11/2024 4:52 PM CDT) F-Actin Antibody IgG 2 0 - 19 Units 04/13/2024 5:18 AM CDT [facility] ([facility]) Comment: If F-Actin (Smooth Muscle) Antibody, IgG [...] suspicion for AIH is strong. Performed By: [facility] [address] [place] [address] Senior Mechanical Project Engineer: Sivakumar Levi MD, PhD CLIA Number: [id number] Blood BLOOD SPECIMEN / Unknown Lab Venipuncture / Unknown 04/11/2024 4:52 PM CDT 04/11/2024 5:39 PM CDT Don Maunel MD LAB - SEROLOGY ORDER GITA [facility]) [address] [place] [address], [facility] * MIKE/INFORMATION SYSTEMS PLANNER (SONU) ANTIBODY IGG (04/11/2024 4:52 PM CDT) Pathologist [facility] Mike/INFORMATION SYSTEMS PLANNER (SONU) Antibody IgG 2 0 - 19 Units 04/13/2024 12:36 PM CDT [facility] ([facility]) Comment: INTERPRETIVE INFORMATION: Mike/INFORMATION SYSTEMS PLANNER (SONU) Antibody, IgG ??19 Units or Less ............. Negative ??20 to 39 Units ............... Weak Positive ??40 to 80 Units ............... Moderate Positive ??81 Units or greater .......... Strong Positive Mike/INFORMATION SYSTEMS PLANNER antibodies are frequently seen in patients with mixed connective tissue disease (MCTD) and are also associated with other systemic autoimmune rheumatic diseases (SARDs) such as systemic lupus erythematosus (SLE), systemic sclerosis, and myositis. Antibodies targeting the Mike/INFORMATION SYSTEMS PLANNER antigenic complex also recognize Mike antigens, therefore, the Mike antibody response must be considered when interpreting these results. Performed By: [facility] [address] [place] [address] Senior Mechanical Project Engineer: Sivakumar Levi MD, PhD CLIA Number: [id number] Blood BLOOD SPECIMEN / Unknown Lab Venipuncture / Unknown 04/11/2024 4:52 PM CDT 04/11/2024 5:09 PM CDT Don Manuel MD LAB - CHEMISTRY ORDReymundo DE LA GARZA Performing Organization Address City/[facility]/ZIP Co de Phone Number General Blood ([facility]) [address] * DNA ANTIBODY DS CRITHIDIA TITER (04/11/2024 4:52 PM CDT) dsDNA Antibody IgG <1:10 <1:10 2023 12:15 AM CDT General Blood ([facility]) Comment: INTERPRETIVE INFORMATION: Double-Stranded DNA (dsDNA) Antibody, [...] recommendations for testing may be found at [email or web address]. Performed By: [facility] [address] [place] [address] Senior Mechanical Project Engineer: Sivakumar Levi MD, PhD CLIA Number: [id number] Blood BLOOD SPECIMEN / Unknown Lab Venipuncture / Unknown 04/11/2024 4:52 PM CDT 04/11/2024 5:30 PM CDT Don Manuel MD LAB - SEROLOGY ORDER GITA Performing Organization Address City/[facility]/ZIP Co de Phone Number General Blood ([facility]) [address] documented in this encounter Visit Diagnoses Diagnosis Abnormal CT of the chest- Primary Nonspecific (abnormal) findings on radiological and other examination of other intrathoracic organs Acute cough documented in this encounter Care Teams Quality Assurance Auditor Relationship Specialty Start Date End Date Blake Lindsey MD [address] [place] [id number] PCP - General 05/20/16 documented as of this encounter
--- OUTSIDE RECORDS SUMMARY | 2024-07-29 17:20 | XMS_ITS | Encounter Summary ---
Author Organization [facility] Address [address] [place] [address] Care Team Providers Care Public Health Nurse Name Role Phone Blake Lindsey MD Primary Care Provider [phone] Encounter Details Date Type Department Care Team (Latest Contact Info) Description 01/27/2022 Travel Social History Tobacco Use Types Packs/Day [...] on filedocumented in this encounter Care Teams Public Health Nurse Relationship Specialty Start Date End Date Blake Lindsey MD [address] [place] [address] PCP - General 05/20/16 documented as of this encounter
--- OUTSIDE RECORDS SUMMARY | 2024-07-29 17:20 | XMS_ITS ---
Author Organization [facility] Address [address] [place] [address] Care Team Providers Care Home Organizer Name Role Phone Blake Lindsey MD Primary Care Provider [phone] Active Problems Problem Noted Date Diagnosed Date Inflamed seborrheic keratosis 03/02/2023 Actinic keratosis 03/02/2023 Neoplasm of uncertain behavior of skin 3 History of basal cell carcinoma (BCC) 10/03/2022 Multiple benign melanocytic nevi of upper and lower extremities and trunk 10/03/2022 Lentigines 10/03/2022 Seborrheic keratosis 10/03/2022 Chronic, continuous use of opioids 07/18/2021 Parotid nodule 08/22/2020 Assessment & Plan (08/22/2020 10:50 AM LITIGATION ATTORNEY): Left sided parotid nodule - previously noted [...] 0 Assessment & Plan (07/11/2020 2:03 PM LITIGATION ATTORNEY): Advised patient to use heat to the [...] 07/11/2020 Assessment & Plan (08/22/2020 10:46 AM LITIGATION ATTORNEY): Continue with previous recommendations. Patient states she has been compliant. Follow up as needed Assessment & Plan (07/11/2020 1:57 PM LITIGATION ATTORNEY): Patient states she has a history of [...] mg am, 30 mg pm, well controlled Current Oncology Plans No current plan information found. Past Plans No past plan information found. Radiation Treatments * No radiation treatments are documented for this patient in [facility]. Treatments may have been administered in another system. Lifetime Dose Tracking * Chemical Lifetime Dose Automatic Entry Manual Entr y Dose Length Product 1,704 mGy-cm 1,704 mGy-cm 0 mGy-cm
--- OUTSIDE RECORDS SUMMARY | 2024-07-29 17:21 | XMS_ITS | Encounter Summary ---
Author Organization [facility] Health Address [address] [place] [address] Care Team Providers Care Net Programmer Name Role Phone Blake Lindsey MD Primary Care Provider [phone] Reason for Referral * Radiology Services (Routine) - Closed Specialty Diagnoses / Procedures Referred By Ariel cano Referred To Contact CT Scan Diagnoses Lesion of parotid gland Procedures CT NECK SOFT TISSUE W Castillo Lozoya MD [address] [place] [address] [facility] [address] [place] [phone] Referral ID Status Reason Start Date Expiration Date Visits Re quested Visits Authorized [id number] Closed 06/05/2021 06/05/2022 1 1 ING TUTOR Reason for Visit * Radiology Services (Routine) - Closed Specialty Diagnoses / Procedures Referred By Ariel cano Referred To Contact CT Scan Diagnoses Lesion of parotid gland Procedures CT NECK SOFT TISSUE W Castillo Lozoya MD [address] [place] [address] [facility] [address] [place] [address] Referral ID Status Reason Start Date Expiration Date Visits Re quested Visits Authorized [id number] Closed 06/05/2021 06/05/2022 1 1 Encounter Details Date Type Department Care Team (Latest Contact Info) Description 07/01/2021 1:00 PM WRITING TUTOR - 07/01/2021 4:22 PM WRITING TUTOR Hospital Encounter [facility] CAT SCAN [address] [place] [address] Castillo Max MD [address] [place] [address] Discharge Disposition: Home or Self Care Social History Tobacco Use Types Packs/Day Years Used Date Smoking Tobacco: Former Cigarettes Q uit: 11/30/1997 Smokeless Tobacco: Never Alcohol Use Standard Drinks/Week Comments Yes 0.8 (1 standard drink = 0.6 oz p ure alcohol) once a week Sex and Gender Information Value Date Recorded Sex Assigned at Female 05/06/2024 9:07 AM CDT Gender Identity Female 05/06/2024 9:07 AM CDT Sexual Orientation Straight 05/06/2024 9: 07 AM CDT COVID-19 Exposure Response Date Recorded In the last month, have you been in contact with someone who was confirmed or suspected to have Coronavirus / COVID-19? No / Unsure 07/01/2021 1:04 PM WRITING TUTOR documented as of this encounter Functional Status [...] Spasms of the Bronchus 1 vial 01/12/2019 atorvastatin (LIPITOR) 10 MG tablet Take 1 [...] once daily 07/19/2020 furosemide (LASIX) 20 MG tabletIndications:Sacha a Take [...] bilateral nares 22 g 1 03/17/2021 NYSTOP [id number] UNIT/GM powder Apply 1 Dose to affected [...] as directed 02/25/2021 QUEtiapine (SEROQUEL) 100 MG tabletIndications:Ivonne r Depressive [...] mouth nightly as needed for Insomnia 06/26/2020 fluticasone propionate (FLONASE) 50 MCG/ACT nasal spray [place] 2 sprays into each nostril once daily 16 g 5 08/08/2020 08/06/2022 levoFLOXacin (LEVAQUIN) 500 MG tablet 03/14/2021 07/15/2021 lidocaine (LIDODERM) 5 % patch Apply 1 (one) patch to skin once daily 30 patch 09/11/2020 07/15/2021 meloxicam (MOBIC) 15 MG tablet Take 15 mg by mouth once daily 03/09/2021 08/06/2022 naproxen (NAPROSYN) 500 MG tablet Take 1 (one) tablet by mouth 2 times daily as needed for Pain 20 tablet 09/11/2020 07/15/2021 NARCAN 4 MG/0.1ML nasal spray [place] 4 mg into each nostril as needed 06/18/2020 07/15/2021 QUEtiapine (SEROQUEL) 50 MG tablet Take 50 mg by mouth at bedtime 0 01/04/2019 07/15/2021 RELISTOR 150 MG tablet TAKE 3 TABLETS BY MOUTH EVERY DAY IN THE MORNING 07/31/2020 07/15/2021 SENEXON-S 8.6-50 MG tabletIndications:Cons tipation Take 1 tablet by mouth once daily Reasons: Constipation 30 tablet 01/12/2019 07/15/2021 silver sulfADIAZINE (SILVADENE) 1 % cream Apply to affected area 2 times daily 06/20/2021 07/15/2021 terbinafine (LAMISIL) 250 MG tablet Take 250 mg by mouth once daily 2 01/30/2019 07/15/2021 TRELEGY ELLIPTA 100-62.5-25 MCG/INH Inhale 1 (one) puff by mouth every 6 hours as needed 06/13/2020 04/11/2024 XTAMPZA ER 9 MG capsule Take 9 mg by mouth 2 times daily 06/26/2020 08/05/2022 documented as of this encounter Plan of Treatment Not on file documented as of this encounter Procedures Procedure Name Priority Date/Time Associated Diagnosis Comments CT NECK SOFT TISSUE W CONT Routine 07/01/2021 1:59 PM WRITING TUTOR Lesion of parotid gland documented in this encounter Results * CT NECK SOFT TISSUE W CONT (07/01/2021 1:59 PM WRITING TUTOR) Anatomical Region Laterality Modality Head Computed Tomogra phy 07/01/2021 3:50 PM WRITING TUTOR Impressions 07/01/2021 4:36 PM WRITING TUTOR IMPRESSION: 1. Given the technical differences, the [...] for lymphadenopathy or other significant interval changes. This report was electronically signed by GT MINOR ??on 07/01/2021 4:36 PM . Narrative 07/01/2021 4:[address] SOFT TISSUE NECK WITH INTRAVENOUS CONTRAST. HISTORY: K11.9: Lesion of parotid gland COMPARISON: CT soft tissue neck dated 10/18/2020. CORRELATION: PET-CT whole body dated 02/13/2019 TECHNIQUE: After intravenous administration of 100 mL of Omnipaque 350 contrast, spiral axial scanning of the soft tissues of the neck was performed followed by coronal and sagittal reconstruction of images by the technologist. FINDINGS: In the inferior aspect of the superficial lobe of left parotid gland, the elongated mass with soft tissue attenuation is stable (series 4, image 51; series 5, image 49) measuring about 18 x 8 x 14 mm in maximum length, width and height, previously 14 x 7 x 13 mm in the same dimensions. The intraparotid centrally hypoattenuating peripherally enhancing mass in superficial lobe of left parotid gland (series 4, image 44; series 5, image 55) measures 13 x 10 x 14 mm in AP, transverse and cephalocaudal dimensions, previously 12 x 10 x 13 mm along the same dimensions. No other intraparenchymal lesions are identified. There are subcentimeter levels 1B and 2 lymph nodes are stable. A pathologically enlarged lymph node is not identified. The right parotid gland, bilateral submandibular glands, thyroid gland, epiglottis, vallecula, piriform sinuses, aryepiglottic folds, false and true vocal cords, laryngeal cartilages and the subglottic region appear normal. Nasopharynx, adenoids, palatine tonsils, hard and soft palate and uvula are within normal limits. The floor of mouth, tongue, base of tongue and deep cervical spaces are normal. The major vessels of the neck, especially in bilateral carotid spaces, are normally opacified with normal size. No pathologically enlarged lymph nodes, new masses or abscesses are identified. The paranasal sinuses and the mastoid air cells are well aerated and clear as visualized. The imaged lung apices are clear. The superior mediastinum is unremarkable. Postsurgical changes of posterior fusion of cervicothoracic spinal partially imaged and appears stable as visualized. Procedure Note Gt Minor MD - 07/01/2021 CT SOFT TISSUE NECK WITH INTRAVENOUS CONTRAST. HISTORY: K11.9: Lesion of parotid gland COMPARISON: CT soft tissue neck dated 10/18/2020. CORRELATION: PET-CT whole body dated 02/13/2019 TECHNIQUE: After intravenous administration of 100 mL of Omnipaque 350 contrast, spiral axial scanning of the soft tissues of the neck was performed followed by coronal and sagittal reconstruction of images bythe technologist. FINDINGS: In the inferior aspect of the superficial lobe of left parotid gland,the elongated mass with soft tissue attenuation is stable (series 4, image51; series 5, image 49) measuring about 18 x 8 x 14 mm in maximum length, width and height, previously 14 x 7 x 13 mm in the same dimensions. The intraparotid centrally hypoattenuating peripherally enhancing mass in superficial lobe of left parotid gland (series 4, image 44; series 5, image 55) measures 13 x 10 x 14 mm in AP, transverse and cephalocaudal dimensions, previously 12 x 10 x 13 mm along the same dimensions. Noother intraparenchymal lesions are identified. There are subcentimeter levels 1B and 2 lymph nodes are stable. A pathologically enlarged lymph node is not identified. The right parotid gland, bilateral submandibular glands, thyroid gland, epiglottis, vallecula, piriform sinuses, aryepiglottic folds, false and true vocal cords, laryngeal cartilages and the subglottic region appear normal. Nasopharynx, adenoids, palatine tonsils, hard and soft palateand uvula are within normal limits. The floor of mouth, tongue, base oftongue and deep cervical spaces are normal. The major vessels of the neck, especially in bilateral carotid spaces, are normally opacified withnormal size. No pathologically enlarged lymph nodes, new masses or abscessesare identified. The paranasal sinuses and the mastoid air cells are well aerated andclear as visualized. The imaged lung apices are clear. The superiormediastinum is unremarkable. Postsurgical changes of posterior fusion of cervicothoracic spinal partially imaged and appears stable asvisualized. IMPRESSION: 1. Given the technical differences, the peripherally enhancing centrally hypoattenuating intraparotid mass on the left side is stable, but themore laterally and inferiorly located one with homogeneously hypoattenuating appearance has enlarged in the interval. The previous PET examination demonstrated FDG uptake in the former and not the latter intraparotid mass. Follow-up is recommended. 2. Negative for lymphadenopathy or other significant interval changes. This report was electronically signed by GT MINOR on 14:36 PM . Castillo Max MD CT ORDERABLES documented in this encounter Visit Diagnoses Diagnosis Lesion of parotid gland documented in this encounter Administered Medications Inactive Administered Medications - up to 3 most recent administrations Medication Order MAR Action Action Date Dose Rate Site iopamidol (Isovue 370) 76 % contrast Intravenous, CONTRAST ONCE, Starting on Tu07/01/21 at 1341, Until Wed07/02/21 at 0137 $ Given - Contrast 07/01/2021 2:00 PM WRITING TUTOR 100 mL documented in this encounter Care Teams Net Programmer Relationship Specialty Start Date End Date Blake Lindsey MD [address] [place] [address] PCP - General 05/20/16 documented as of this encounter
--- OUTSIDE RECORDS SUMMARY | 2024-07-29 17:21 | XMS_ITS | Encounter Summary ---
Author Organization [facility] Health Address [address] [place] [address] Care Team Providers Care Account Receivable Associate Name Role Phone Blake Lindsey MD Primary Care Provider [phone] Encounter Details Date Type Department Care Team (Late st Contact Info) Description 10/31/2020 Orders Only [facility] [place] [address] Bridget Angela PA No Information available Acute pain of right knee ; Hodgkin lymphoma, unspecified Hodgkin lymphoma type, [...] have Coronavirus / COVID-19? No / Unsure 10/18/2020 1:00 PM CDT documented as of this encounter Functional [...] Procedure Name Priority Date/Time Associated Diagnosis Comments FLOW CYTOMETRY BODY FLUID Routine 11/04/2020 1:30 PM CDT Hodgkin lymphoma, unspecified Hodgkin lymphoma type, unspecified body region (HCC) documented in this encounter Results * FLOW CYTOMETRY BODY FLUID (11/04/2020 1:30 PM CDT) Case Report Flow Cytometry ?Case: [id number] ? Authorizing Provider: ??Nia Augustin, [place] ?Collected: ? 11/04/2020 01:30 PM ? Ordering Location: ? [facility] ? Received: ?11/04/2020 02:49 PM ? Pathologist: ? Sisi Pichardo MD ? Specimen: ?Body Fluid ? 11/04/2020 4:15 PM [facility] Final Diagnosis Lymph node, left neck, flow cytometric immunophenotypic analysis: - No evidence of non-Hodgkin lymphoma. - See interpretation. 11/04/2020 4:15 PM [facility] Flow Cytometry Interpretation The left neck lymph node specimen has a viability of 100%. Within the lymphocyte gate, there is no monoclonal B-cell population identified (kappa:lambda ratio = 1.1:1). There is no aberrant T-cell population seen (CD4:CD8 ratio is 1.4:1). A cytospin prepared from the flow cytometry specimen is reviewed for quality assurance/r&d lab technician purposes. The left neck lymph node specimen shows no evidence of involvement by non-Hodgkin lymphoma. Correlation with clinical findings is required. 11/04/2020 4:15 PM [facility] Flow Cytometry Results Differential Result Comment Flow Cell Count /uL 1,100 Total Viability % 100 Lymphocytes % 98 Dim CD45 Region % 0 Monocytes % 1 Granulocytes % 1 11/04/2020 4:15 PM [facility] Client Specimen ID # [id number] 11/04/2020 4:15 PM [facility] Reason for test Hodgkin lymphoma, unspecified Hodgkin lymphoma type, unspecified body region 11/04/2020 4:15 PM [facility] Number of markers 16 were performed. A-2 Flow CD3 A-4 Flow CD10 A-6 Flow CD20 A-7 Flow CD23 A-12 Flow CD2 A-13 Flow CD4 A-16 Flow CD1a A-3 Flow CD5 A-5 Flow CD19 A-8 Flow CD34 A-9 Flow CD45 A-14 Flow CD7 A-15 Flow CD8 A-17 Flow CD30 A-10 Buena+CD19+ A-11 Lambda+CD19+ 11/04/2020 4:15 PM [facility] Disclaimer Test performed at [facility], [address], [place], [place], [address]. *The established laboratory minimum viability is 70%. [...] complexity clinical testing. 11/04/2020 4:15 PM CDT [facility] Embedded Images 4:15 PM CDT [facility] Fluid BODY FLUID SPECIMEN / Unknown 11/04/2020 1:30 PM CDT 11/04/2020 2:49 PM CDT Comment:Lymph node, cervical , left, FNA Nia Augustin [employer]ST[employer] CLOUD CONSULTING ARCHITECT-WARP TYING MACHINE TENDER LAB - PATHOLOGY/CY TOLOGY ORDERABLES [facility] [address] [phone] documented in this encounter Visit Diagnoses Diagnosis Acute pain of right knee- Primary Hodgkin lymphoma, unspecified Hodgkin lymphoma type, unspecified body region (HCC) documented in this encounter Care Teams Account Receivable Associate Relationship Specialty Start Date End Date Blake iLndsey MD [address] [place] [address] PCP - General 05/20/16 documented as of this encounter
--- OUTSIDE RECORDS SUMMARY | 2024-07-29 17:21 | XMS_ITS | Encounter Summary ---
Author Organization [facility] Health Address [address] [place] [address] Care Team Providers Care Survey Research Center Director Name Role Phone Blake Lindsey MD Primary Care Provider [phone] Encounter Details Date Type Department Care Team (Latest Contact Info) Description 06/05/2021 12:30 PM CDT - 06/05/2021 11:59 PM CDT Hospital Encounter [facility] [address] [place] [address] Discharge Disposition: Home or Self Care Social [...] have Coronavirus / COVID-19? No / Unsure 06/05/2021 12:22 PM CDT documented as of this encounter [...] bilateral nares 22 g 1 03/17/2021 NYSTOP [id number] UNIT/GM powder Apply 1 Dose to affected [...] fluticasone propionate (FLONASE) 50 MCG/ACT nasal spray [place] 2 sprays into each nostril once daily [...] 09/11/2020 07/15/2021 NARCAN 4 MG/0.1ML nasal spray [place] 4 mg into each nostril as needed 06/18/2020 07/15/2021 QUEtiapine (SEROQUEL) 50 MG tablet Take 50 mg by mouth at bedtime 0 01/04/2019 07/15/2021 RELISTOR 150 MG tablet TAKE 3 TABLETS BY MOUTH EVERY DAY IN THE MORNING 07/31/2020 07/15/2021 SENEXON-S 8.6-50 MG tabletIndications:Con stipation Take 1 tablet by mouth once daily Reasons: Constipation 30 tablet 01/12/2019 07/15/2021 terbinafine (LAMISIL) 250 MG tablet Take [...] Diagnosis Comments CBC W AUTO DIFFERENTIAL STAT 06/05/2021 12:44 PM CDT Hodgkin lymphoma, unspecified Hodgkin lymphoma type, unspecified body region (HCC) COMPREHENSIVE METABOLIC PANEL STAT 06/05/2021 12:44 PM CDT Hodgkin lymphoma, unspecified Hodgkin lymphoma type, unspecified body region (HCC) documented in this encounter Results * (ABNORMAL) COMPREHENSIVE METABOLIC PANEL (06/05/2021 12:44 PM CDT) BUN 19 7 - 26 mg/dL 06/05/2021 1:20 PM [facility] Creatinine 0.72 0.56 - 0.96 mg/dL 06/05/2021 1:20 PM [facility] Sodium 140 136 - 145 mmol/L 06/05/2021 1:20 PM [facility] Potassium 4.3 3.5 - 4.5 mmol/L 06/05/2021 1:20 PM [facility] Chloride 105 98 - 107 mmol/L 06/05/2021 1:20 PM [facility] CO2 22 22 - 29 mmol/L 06/05/2021 1:20 PM [facility] Glucose 103 70 - 115 mg/dL 06/05/2021 1:20 PM [facility] Calcium 10.4(H) 8.4 - 10.2 mg/dL 06/05/2021 1:20 PM [facility] Protein Total 8.0 6.0 - 8.3 g/dL 06/05/2021 1:20 PM [facility] Albumin 4.2 3.4 - 5.0 g/dL 06/05/2021 1:20 PM [facility] Bilirubin Total 0.6 0.2 - 1.2 mg/dL 06/05/2021 1:20 PM [facility] Alkaline Phosphatase 90 40 - 150 U/L 06/05/2021 1:20 PM [facility] ALT 18 5 - 55 U/L 06/05/2021 1:20 PM [facility] AST 20 5 - 34 U/L 06/05/2021 1:20 PM [facility] Anion Gap 17 8 - 18 06/05/2021 1:20 PM [facility] BUN/Creatinine Ratio 26(H) 7 - 23 06/05/2021 1:20 PM [facility] Osmolality Calculated 293 270 - 300 mOsm/kg 06/05/2021 1:20 PM [facility] Albumin/Globulin Ratio 1.1 1.1 - 2.3 06/05/2021 1:20 PM [facility] eGFR by CKD-EPI >90 >=90 mL/min/1.7 3 m2 06/05/2021 1:20 PM [facility] Blood BLOOD SPECIMEN / Unknown Lab Venipuncture / Unknown 06/05/2021 12:44 PM CDT 06/05/2021 12:53 PM T Castillo Max MD LAB - CHEMISTRY OR DERABLES [facility] [address] [place] [address], [facility] [phone] * (ABNORMAL) CBC WITH DIFFERENTIAL (06/05/2021 12:44 PM CDT) WBC 8.7 3.5 - 10.5 10? 3 /uL 06/05/2021 1:16 PM [facility] RBC 4.86 3.80 - 5.20 10? 6 /uL 06/05/2021 1:16 PM [facility] Hemoglobin 15.6 12.0 - 15.6 g/dL 06/05/2021 1:16 PM [facility] Hematocrit 46.0(H) 35.0 - 45.0 % 06/05/2021 1:16 PM [facility] MCV 94.7 80.7 - 98.3 fL 06/05/2021 1:16 PM [facility] MCH 32.1 26.7 - 34.0 pg 06/05/2021 1:16 PM [facility] MCHC 33.9 30.8 - 35.9 g/dL 06/05/2021 1:16 PM [facility] Platelet Count 231 150 - 400 10? 3 /uL 06/05/2021 1:16 PM [facility] RDW-SD 43.8 36.0 - 50.0 fL 06/05/2021 1:16 PM [facility] RDW-CV 12.7 11.2 - 14.8 % 06/05/2021 1:16 PM [facility] MPV 8.8(L) 9.4 - 12.9 fL 06/05/2021 1:16 PM [facility] nRBC Absolute 0.00 0 10? 3 /uL 06/05/2021 1:16 PM [facility] nRBC Auto 0.0 0 /100 WBC 06/05/2021 1:16 PM [facility] Neutrophils % 65.8 35.0 - 70.0 % 06/05/2021 1:16 PM [facility] Lymphocytes % 22.8 20.0 - 43.0 % 06/05/2021 1:16 PM [facility] Monocytes % 6.4 5.0 - 13.0 % 06/05/2021 1:16 PM [facility] Eosinophils % 4.5 0.0 - 6.0 % 06/05/2021 1:16 PM [facility] Basophil % 0.3 0.0 - 2.0 % 06/05/2021 1:16 PM [facility] Neutrophils Absolute 5.7 1.6 - 7.0 10? 3 /uL 06/05/2021 1:16 PM CDT [facility] Lymphocyte Absolute 2.0 1.1 - 3.9 10? 3 /uL 06/05/2021 1:16 PM CDT [facility] Monocytes Absolute 0.56 0.26 - 1.07 10? 3 /uL 06/05/2021 1:16 PM CDT [facility] Eosinophils Absolute 0.39 0.00 - 0.47 10? 3 /uL 06/05/2021 1:16 PM CDT [facility] Basophils Absolute 0.03 0.00 - 0.08 10? 3 /uL 06/05/2021 1:16 PM CDT [facility] Immature Granulocytes % 0.2 0.0 - 1.0 % 06/05/2021 1:16 PM CDT [facility] Immature Granulocytes Absolute 0.02 06/05/2021 1:16 PM CDT [facility] Blood BLOOD SPECIMEN / Unknown Lab Venipuncture / Unknown 06/05/2021 12:44 PM CDT 06/05/2021 12:53 PM CDT Castillo Max MD LAB - HEMATOLOGY O RDERABLES Performing Organization Address City/State/[facility] Co de Phone Number [facility] [address] [place] [address], [facility] [phone] documented in this encounter Visit Diagnoses Diagnosis Hodgkin lymphoma, unspecified Hodgkin lymphoma type, unspecified body region (HCC) documented in this encounter Care Teams Survey Research Center Director Relationship Specialty Start Date End Date Blake Lindsey MD [address] [place] [id number] PCP - General 05/20/16 documented as of this encounter
--- OUTSIDE RECORDS SUMMARY | 2024-07-29 17:21 | XMS_ITS | Encounter Summary ---
Author Organization [facility] Health Address [address] [place] [address] Care Team Providers Care Photoengraving Printer Name Role Phone Blake Lindsey MD Primary Care Provider [phone] Encounter Details Date Type Department Care Team (Late st Contact Info) Description 07/15/2021 Orders Only [facility] [address] [place] [address] Reba Crews, APNP-CHIEF CHEMIST [address] 2L DIV OF PULMONARY/[place] [address] Central sleep apnea comorbid with prescribed opioid use; Primary central sleep apnea Social History Tobacco Use Types Packs/Day Years [...] COVID-19? No / Unsure 07/01/2021 1:04 PM SIDE SAWYER documented as of this encounter Functional Status [...] documented as of this encounter Results * [place] POLYSOM 6/>YRS CPAP 4/> PARM (08/06/2021 10:18 AM SIDE SAWYER) Narrative Lowell Pop MD - 08/06/2021 10:18 AM SIDE SAWYER Lowell Pop MD ? 08/06/2021 10:19 AM [facility] Accredited by the [place] [employer] [facility], First Floor [address] [place] [address] Telephone : [phone] ? Medical Records Patient Name: Lakeisha Alejandra : 1970 Date of Study: 08/05/2021 Referring Physician: Blake Lindsey MD Type of Montage: Respiratory Scoring Montage: ??[facility] FULL NIGHT THERAPEUTIC POLYSOMNOGRAM INTERPRETATION Procedure: The polysomnogram was performed with a geospatial technologist in attendance. ??Central, occipital, and temporal [...] History: Ms. Lakeisha Alejandra, a 50 year oldrmt-iwmw-jlc female, was referred to the Sleep Disorders [...] ?fluticasone propionate (FLONASE) 50 MCG/ACT nasal spray, [place] 2 sprays into each nostril once daily, [...] nares, Disp: 22 g, Rfl: 1 ?NYSTOP [id number] UNIT/GM powder, Apply 1 Dose to affected [...] shunt, diffusion abnormality, etc.). Lowell Pop MD, [facility], [facility] Retail Property Manager, [facility] Professor of Internal Medicine Adjunct [employer] [facility] Neurology Division of Pulmonary, Critical Care, and Sleep Medicine [facility] This note was electronically signed on 08/06/2021. Reba A Dettenmeier APNP-CHIEF CHEMIST PROCEDUR E/MINOR SURGICAL ORDERABLES documented in this encounter Visit Diagnoses Diagnosis Central sleep apnea comorbid with prescribed opioid use Primary central sleep apnea Primary central sleep apnea documented in this encounter Care Teams Photoengraving Printer Relationship Specialty Start Date End Date Blake Lindsey MD [address] [place] [address] PCP - General 05/20/16 documented as of this encounter
--- OUTSIDE RECORDS SUMMARY | 2024-07-29 17:21 | XMS_ITS | Encounter Summary ---
Author Organization [facility] Health Address [address] [place] [address] Care Team Providers Care Paint Tinter Name Role Phone Blake Lindsey MD Primary Care Provider Encounter Details Date Type Department Care Team (Latest Contact Info) Description 03/28/2021 11:00 AM CDT - 03/28/2021 11:59 PM CDT Hospital Encounter [facility] PFT [address] [place] [address] Don Manuel MD [address] [facility] 2L DIV OF PULMONARY/[place] [address] Discharge Disposition: Home or Self Care Social [...] have Coronavirus / COVID-19? No / Unsure 03/28/2021 6:54 AM CDT documented as of this encounter [...] bilateral nares 22 g 1 03/17/2021 NYSTOP [id number] UNIT/GM powder Apply 1 Dose to affected [...] fluticasone propionate (FLONASE) 50 MCG/ACT nasal spray [place] 2 sprays into each nostril once daily [...] 09/11/2020 07/15/2021 NARCAN 4 MG/0.1ML nasal spray [place] 4 mg into each nostril as needed [...] on filedocumented in this encounter Care Teams Paint Tinter Relationship Specialty Start Date End Date Blake Lindsey MD [address] [place] [address] PCP - General 05/20/16 documented as of this encounter
--- OUTSIDE RECORDS SUMMARY | 2024-07-29 17:21 | XMS_ITS | Encounter Summary ---
Author Organization [facility] Health Address [address] [place] [address] Care Team Providers Care Assistant Facility Manager Name Role Phone Blake Lindsey MD Primary Care Provider [phone] Reason for Visit * Reason Comments Ear Problem Encounter Details Date Type Department Care Team (Late st Contact Info) Description 08/26/2021 1:45 PM DIGESTER Office Visit [facility] [address] [place] [address], [place] [address] Jah Ochoa MD [address] [place] [address] [place] [address] Nasal crusting (Primary Dx) Social History Tobacco Use Types [...] have Coronavirus / COVID-19? No / Unsure 08/13/2021 3:42 PM DIGESTER documented as of this encounter Last Filed Vital Signs Vital Sign Reading Time Taken Comments Blood Pressure 115/79 08/26/2021 1:58 PM DIGESTER Pulse 83 08/26/2021 1:58 PM DIGESTER Temperature 36.8 ??C (98.3 ??F) 08/26/2021 1:58 PM CS T Respiratory Rate - - Oxygen Saturation - - Inhaled Oxygen Concentration - - Weight 83.5 kg (184 lb) 08/26/2021 1:58 PM DIGESTER Height 158.8 cm (5' 2.5 ) 08/26/2021 1:58 PM DIGESTER Body Mass Index 33.12 08/26/2021 1:58 PM DIGESTER documented in this encounter Functional Status Functional [...] this encounter Patient Instructions * Patient Instructions* Sanju Wesley MA - 08/26/2021 1:59 PM DIGESTER Thank you for visiting [facility] - [facility]. [...] it???s time for you to contact us. ??? To MAKE - CHANGE - CANCEL an office appointment If you become ill, need to be seen before your next scheduled appointment, or need to cancel or reschedule an appointment, please call our office at [phone] Wednesday through Wednesday from 8:00 am to4:30 pm. You can also request a routine appointment through your [employer] account. ??? Prescription Refills Contact your pharmacy to request all refills. The pharmacy will need to fax the request to us at . Please allow a minimum of 48-72 hours for your prescription to be completed. ??? Medical Emergency / After Hours Contact Information If you have a medical emergency, please call 911 or go to the nearest emergency room. For urgent medical calls, which cannot wait until the office opens, please call the medical exchange at and ask the retread mold operator to page the ENT physician construction grip. *Caller ID blocking service will need to be turned off for your call to be returned. We also specialize in Hearing Aids, Allergy testing, swallowing disorders, voice problems, cancer diagnosis, and so much more. Visit our website at [email or web address] for information about our practice and an interactive health encyclopedia. STER documented in this encounter Progress Notes * Jah Ochoa MD - 08/26/2021 3:16 PM CST ?? Otolaryngology-Head and Neck Surgery Office Note ?? PATIENT INFORMATION Lakeisha Alejandra 50 year old female Today's Date: 07/01/2021 ?? HPI/ROS/Allergies ?? Lakeisha Alejandra is a 50 year old female with a PMH significant for asthma, COPD, HLD, HECTOR, Hodgkin's lymphoma, TMJ seen for otalgia. She has been previously seen by Nia Augustin, ENT CAN LABELER for this 08/22/20. At that time had multiple visits to PCP and treated with antibiotics for fluid/presumed ear infec tions. ?? Had COVID in January, it was bad bad , lots of respiratory sequalae. Was here for CT scan ordered forcervical lymphadenopathy. ?? This patient returns today in follow-up after previous evaluation. At the previous evaluation we started her on some salt water irrigations which she has been doing on a twice daily basis to improve some of her nasal symptoms. She had to wear oxygen after she had contracted Covid and the nasal cannula is in the upper causing erosions on the anterior part of the septum bilaterally. She does have crusting in these areas and she has Bactroban that she places on it but sparingly. Her previous concerns about some ear pain have essentially have resolved. She has obstructive sleepapnea and does wear a CPAP mask for which she does receive oxygen but it is a mask and not nasal pillows. ?? Allergies: Allergies Allergen Reactions ??? Amoxicillin Rash ??? Penicillins Rash ??? Codeine Other ? Passes out, Passes out ??? Epinephrine Other ? When injected in mouth for dental procedures, makes extremities go numb ? Review of Systems: A 12-system review of systems was performed and was negative except for: Lakeisha??reports the following:Ears:?ear pain ?? PMH/PSH/SH/FH/Meds ?? PAST MEDICAL HISTORY Past Medical History: Diagnosis Date ??? Asthma ? COPD (chronic obstructive pulmonary disease) ? High cholesterol ? Hodgkins lymphoma ? Migraine ? Sleep apnea ? PAST SURGICAL HISTORY Past Surgical History: Procedure Laterality Date ??? Back Surgery ? BIOPSY ? HX SPINAL FUSION ? [place] FEMUR/KNEE SURG UNLISTED ? both knees ??? LUTHER TOOTH EXTRACTION ? SOCIAL HISTORY: Social History ?? Tobacco Use ??? Smoking status: Former Smoker ? Packs/day: 1.00 ? Quit date: 11/30/1997 ? Years since quittin.6 ??? Smokeless tobacco: Never Used Substance Use Topics ??? Alcohol use: Yes ? Alcohol/week: 0.8 standard drinks ? Comment: once a week ??? Drug use: Not Currently ? Types: Marijuana ? FAMILY HISTORY Non-contributory. ?? MEDICATIONS Current Outpatient Medications on File Prior to Visit Medication Sig Dispense Refill ??? albuterol (PROVENTIL;VENTOLIN) (2.5 MG/3ML) 0.083% nebulizer solution INHALE 3 ML BY NEBULIZATION 3 TIMES DAILY Reasons: Disease Involving Spasms of the Bronchus (Patient taking differently: Inhale 3 mg by mouth 3 times daily INHALE 3 ML BY NEBULIZATION 3 TIMES DAILY Reasons: Disease Involving Spasms of the Bronchus) 1 vial 0 ??? atorvastatin (LIPITOR) 10 MG tablet ? baclofen (LIORESAL) 20 MG tablet ? buPROPion XL 24hr (WELLBUTRIN-XL) 150 MG tablet ? cetirizine (ZYRTEC) 10 MG tablet Take 10 mg by mouth once daily ? escitalopram (LEXAPRO) 20 MG tablet TAKE 1 TABLET BY MOUTH EVERY DAY IN THE MORNING ? fluticasone propionate (FLONASE) 50 MCG/ACT nasal spray [place] 2 sprays into each nostril once daily 16 g 5 ??? furosemide (LASIX) 20 MG tablet Take 1 tablet by mouth once daily Reasons: Edema 30 tablet 0 ??? gabapentin (NEURONTIN) 300 MG capsule Take 300 mg by mouth 3 times daily ? levoFLOXacin (LEVAQUIN) 500 MG tablet (Patient not taking: Reported on 07/01/2021) ? lidocaine (LIDODERM) 5 % patch Apply 1 (one) patch to skin once daily (Patient not taking: Reported on 03/18/2021) 30 patch 0 ??? lubiprostone (AMITIZA) 24 MCG capsule Take 24 mcg by mouth 2 times daily with morning and evening meal ? meloxicam (MOBIC) 15 MG tablet ? montelukast (SINGULAIR) 10 MG tablet Take 10 mg by mouth once daily ? mupirocin (BACTROBAN) 2 % ointment Apply to affected area 3 times daily To bilateral nares 22 g1 ??? naproxen (NAPROSYN) 500 MG tablet Take 1 (one) tablet by mouth 2 times daily as needed for Pain20 tablet 0 ??? NARCAN 4 MG/0.1ML nasal spray [place] 4 mg into each nostril as needed (Patient not taking: Reported on 07/01/2021) ? NYSTOP [id number] UNIT/GM powder Apply 1 Dose to affected area 2 times daily ?? 1 ??? omeprazole (PRILOSEC) 20 MG capsule Take 20 mg by mouth once daily ? ondansetron (ZOFRAN) 4 MG tablet Take 4 mg by mouth as needed ? potassium chloride ER (KLOR-CON) 20 MEQ tablet Take 1 tablet by mouth once daily ?? 0 ??? prazosin (MINIPRESS) 1 MG capsule ? QUEtiapine (SEROQUEL) 100 MG tablet Take 1 tablet by mouth at bedtime Reasons: Major DepressiveDisorder (Patient not taking: Reported on 07/01/2021) 30 tablet 0 ??? QUEtiapine (SEROQUEL) 50 MG tablet Take 50 mg by mouth at bedtime (Patient not taking: Reportedon 03/28/2021) ?? 0 ??? RELISTOR 150 MG tablet TAKE 3 TABLETS BY MOUTH EVERY DAY IN THE MORNING (Patient not taking: Reported on 03/28/2021) ? SENEXON-S 8.6-50 MG tablet Take 1 tablet by mouth once daily Reasons: Constipation (Patient nottaking: Reported on 03/28/2021) 30 tablet 0 ??? silver sulfADIAZINE (SILVADENE) 1 % cream Apply to affected area 2 times daily (Patient not taking: Reported on 07/01/2021) ? spironolactone (ALDACTONE) 25 MG tablet Take 1 tablet by mouth once daily ?? 2 ??? SUMAtriptan (IMITREX) 50 MG tablet Take 1 tablet by mouth once as needed for Migraine Maximum daily dose: 200mg/24 hours Reasons: Migraine Headache 30 tablet 0 ??? terbinafine (LAMISIL) 250 MG tablet Take 250 mg by mouth once daily (Patient not taking: Reported on 03/18/2021) ?? 2 ??? traZODone (DESYREL) 50 MG tablet Take 50 mg by mouth nightly as needed (Patient not taking: Reported on 07/01/2021) ? TRELEGY ELLIPTA 100-62.5-25 MCG/INH Inhale 1 puff by mouth every 6 hours as needed ? XTAMPZA ER 9 MG capsule Take 9 mg by mouth 2 times daily ? No current facility-administered medications on file prior to visit. ? Physical Exam ?? Vitals: BP 111/64 Pulse 106 Ht 5' 3 (1.6 m) Wt 189 lb (85.7 kg) LMP (LMP Unknown) BMI 33.48 kg/m? Constitutional: Alert, NAD. Well developed/well nourished. CV/Pulm: Normal respirations and peripheral pulses. Eyes: PERRL, EOMI Face/Skin: Normal appearance, no lesions/masses. Ears: Right: Normal external auditory canal Left: Normal external auditory canal Nose: Crusting bilaterally, moderate right septal deviation with dried blood and crust in right naris, turbinates intact, mucosal membranes intact. Mouth and oropharynx: Symmetric tongue mobility, no lesions/masses/ulcers. Tonsillar no longer withany exudates normal-appearing 2+ tonsils. Neck: Supple, no lymphadenopathy, no masses. Voice: Strong. MusculoSkeletal: Moves all extremities well. Neuro: Cranial nerves III-XII grossly intact. ? Assessment & Plan ?? Lakeisha Alejandra is a 50 year old female with some mild nasal complaints difficulty breathing through her nose mild right septal deviation excoriation on the anterior septum. I would recommend that she continue with salt water irrigations apply Bactroban to the anterior septum. There are no significant findings on her ear examination. I think at this point were not going to recommend anything other than doing insufflation for her ears. There is no evidence of chronic sinus disease on her exam today either. She wears a CPAP mask for obstructive sleep apnea which she continues to do. I have asked her to follow-up with us as needed for any further symptoms in the head neck region. At this time her main issue is some crusting on the anterior septum. ? STER * Sanju Wesley MA - 08/26/2021 1:58 PM CST Review of Systems Lakeisha Alejandra reports the following; ear pain f/u STER documented in this encounter Plan of Treatment Not on file documented as of this encounter Visit Diagnoses Diagnosis Nasal crusting- Primary Other diseases of nasal cavity and sinuses documented in this encounter Care Teams Assistant Facility Manager Relationship Specialty Start Date End Date Blake Lindsey MD [address] [place] [address] PCP - General 05/20/16 documented as of this encounter
--- OUTSIDE RECORDS SUMMARY | 2024-07-29 17:21 | XMS_ITS | Encounter Summary ---
Author Organization [facility] Health Address [address] [place] [address] Care Team Providers Care Flash Oven Operator Name Role Phone Blake Lindsey MD Primary Care Provider [phone] Reason for Referral * Radiology Services (Routine) - Closed Specialty Diagnoses / Procedures Referred By Contac t Referred To Contact CT Scan Diagnoses Chronic respiratory failure with hypoxia (HCC) Acute respiratory failure due to COVID-19 (HCC) Procedures CT CHEST WO AIYANA AND Joe Sands MD [address] [place] [address] [facility] [address] [place] [address] Referral ID Status Reason Start Date Expiration Date Visits Re quested Visits Authorized [id number] Closed 04/15/2021 04/15/2022 1 1 Reason for Visit * Radiology Services (Routine) - Closed Specialty Diagnoses / Procedures Referred By Contac t Referred To Contact CT Scan Diagnoses Chronic respiratory failure with hypoxia (HCC) Acute respiratory failure due to COVID-19 (HCC) Procedures CT CHEST WO AIYANA AND Joe Sands MD [address] [facility] 2L [place] [address] [facility] [address] [place] [address] Referral ID Status Reason Start Date Expiration Date Visits Re quested Visits Authorized [id number] Closed 04/15/2021 04/15/2022 1 1 Encounter Details Date Type Department Care Team (Latest Contact Info) Description 05/28/2021 2:30 PM CDT - 05/28/2021 11:59 PM CDT Hospital Encounter [facility] CAT SCAN [address] [place] [address] Don Manuel MD [address] [facility] 2L DIV OF PULMONARY/[place] [address] Discharge Disposition: Home or Self [...] have Coronavirus / COVID-19? No / Unsure 05/28/2021 1:02 PM CDT documented as of this encounter [...] bilateral nares 22 g 1 03/17/2021 NYSTOP [id number] UNIT/GM powder Apply 1 Dose to affected [...] fluticasone propionate (FLONASE) 50 MCG/ACT nasal spray [place] 2 sprays into each nostril once daily [...] 09/11/2020 07/15/2021 NARCAN 4 MG/0.1ML nasal spray [place] 4 mg into each nostril as needed [...] CT CHEST WO CONT AND HIRES Routine 05/28/2021 2:51 PM CDT Chronic respiratory failure with hypoxia (HCC) Acute respiratory failure due to COVID-19 (HCC) documented in this encounter Results * CT CHEST WO CONT AND HIRES (05/28/2021 2:51 PM CDT) Anatomical Region Laterality Modality Chest Computed Tomogra phy 05/28/2021 4:54 PM CDT Impressions 05/28/2021 5:25 PM CDT Impression: Peripheral, posterior predominant fine reticular opacities throughout the bilateral upper and lower lobes with subpleural sparing, 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 Interval resolution of groundglass opacities may reflect resolution of acute inflammatory component. Report drafted by Chinedu Hernandez (resident) I, Dr. HEMAL GOODE have personally reviewed and interpreted this examination/study. This report was electronically signed by HEMAL GOODE ??on 05/28/2021 5:25 PM . Narrative 05/28/2021 5:25 PM CDT Procedure Information DATE: 05/28/2021 2:52 PM EXAMINATION: Computed tomography (CT) of the chest without contrast TECHNIQUE: CT of the chest was performed without contrast according to standard protocol. Then, utilizing a high-resolution algorithm, 1 mm noncontiguous axial images of the chest were obtained in inspiration and expiration. Clinical Information HISTORY: J96.11: Chronic respiratory failure with hypoxia U07.1: Acute respiratory failure due to COVID-19 J96.00: Acute respiratory failure due to COVID-19 COMPARISON: CT angiogram chest dated 03/28/2021. Findings Lines/Tubes: None. Lower neck and axillae: Normal. Mediastinum and Radha: No enlarged lymph nodes are present. Heart and Pericardium: The cardiac chambers are normal in size. No pericardial fluid or thickening is present. Lung Parenchyma, Airways, and Pleural Spaces: There is peripheral, posterior predominant fine reticular opacity throughout the bilateral upper and lower lobes, with subpleural sparing most consistent with nonspecific interstitial pneumonia. There are tiny areas of air-trapping within the posterior aspects of the bilateral lower lobes on expiration. There is no diffuse cystic or nodular disease. There is no bronchiectasis or honeycombing. Previously seen superimposed areas of groundglass opacity have resolved. There is no pleural effusion or pneumothorax. Bones and Soft Tissue: Chronic T6 compression fracture, unchanged in alignment. Instrumented posterior spinal fusion partially visualized. No new fractures are identified. Upper Abdomen: Multiple gallstones are present within the gallbladder. Otherwise, the visualized abdomen is unremarkable. Procedure Note Hemal Goode MD - 05/28/2021 Procedure Information DATE: 05/28/2021 2:52 PM EXAMINATION: Computed tomography (CT) of the chest without contrast TECHNIQUE: CT of the chest was performed without contrast according to standard protocol. Then, utilizing a high-resolution algorithm, 1 mmnoncontiguous axial images of the chest were obtained in inspiration and expiration. Clinical Information HISTORY: J96.11: Chronic respiratory failure with hypoxia U07.1: Acute respiratory failure due to COVID-19 J96.00: Acute respiratory failure due to COVID-19 COMPARISON: CT angiogram chest dated 03/28/2021. Findings Lines/Tubes: None. Lower neck and axillae: Normal. Mediastinum and Radha: No enlarged lymph nodes are present. Heart and Pericardium: The cardiac chambers are normal in size. No pericardial fluid or thickening is present. Lung Parenchyma, Airways, and Pleural Spaces: There is peripheral, posterior predominant fine reticular opacity throughout the bilateral upper and lower lobes, with subpleural sparing most consistent with nonspecific interstitial pneumonia. There are tiny areas of air-trapping within the posterior aspects of the bilaterallower lobes on expiration. There is no diffuse cystic or nodular disease.There is no bronchiectasis or honeycombing. Previously seen superimposed areas of groundglass opacity have resolved. There is no pleural effusion or pneumothorax. Bones and Soft Tissue: Chronic T6 compression fracture, unchanged in alignment. Instrumented posterior spinal fusion partially visualized. No new fractures are identified. Upper Abdomen: Multiple gallstones are present within the gallbladder. Otherwise, the visualized abdomen is unremarkable. 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 Report drafted by Chinedu Hernandez (resident) I, Dr. HEMAL GOODE have personally reviewed and interpreted this examination/study. This report was electronically signed by HEMAL GOODE on 05/28/2021 5:25 PM . Joe Lomas MD CT ORDERABLES documented in this encounter Visit Diagnoses Diagnosis Chronic respiratory failure with hypoxia (HCC) Chronic respiratory failure Acute respiratory failure due to COVID-19 (HCC) documented in this encounter Care Teams Flash Oven Operator Relationship Specialty Start Date End Date Blake Lindsey MD [address] [place] [address] PCP - General 05/20/16 documented as of this encounter
--- OUTSIDE RECORDS SUMMARY | 2024-07-29 17:21 | XMS_ITS | Encounter Summary ---
Author Organization [facility] Health Address [address] [facility] [place] [address] Care Team Providers Care Hand Reamer Name Role Phone Blake Lindsey MD Primary Care Provider [phone] Encounter Details Date Type Department Care Team (Late st Contact Info) Description 10/23/2020 Orders Only [facility] [address] [place] [address] Nia Augustin, ORDER CHECKER PACKER PROCESSER-ORNAMENTAL PLASTERER HELPER [address] [place], [place] [id number] Parotid nodule Social History Tobacco Use Types Packs/Day Years [...] glands documented in this encounter Care Teams Hand Reamer Relationship Specialty Start Date End Date Blake Lindsey MD [address] [place] [address] PCP - General 05/20/16 documented as of this encounter
--- OUTSIDE RECORDS SUMMARY | 2024-07-29 17:21 | XMS_ITS | Encounter Summary ---
Author Organization [facility] Health Address [address] [place] [address] Care Team Providers Care Preventive Medicine Physician Name Role Phone Blake Lindsey MD Primary Care Provider [phone] Encounter Details Date Type Department Care Team (Latest Contact Info) Description 07/01/2021 Travel Social History Tobacco Use Types Packs/Day [...] COVID-19? No / Unsure 07/01/2021 1:04 PM CROP AND SOIL TECHNICIAN documented as of this encounter Functional Status [...] on filedocumented in this encounter Care Teams Preventive Medicine Physician Relationship Specialty Start Date End Date Blake Lindsey MD [address] [place] [address] PCP - General 05/20/16 documented as of this encounter
--- OUTSIDE RECORDS SUMMARY | 2024-07-29 17:21 | XMS_ITS | Encounter Summary ---
Author Organization [facility] Health Address [address] [place] [address] Care Team Providers Care Combo Welder Name Role Phone Blake Lindsey MD Primary Care Provider Reason for Visit * Reason Onset Date Comments Results 04/02/2021 Encounter Details Date Type Department Care Team (Late st Contact Info) Description 04/02/2021 Telephone [facility] [address], [address] [place], [place] [id number] Luz Meyer MD [address] [place], [place] [id number] Results Social History Tobacco Use Types Packs/Day [...] encounter Miscellaneous Notes * Telephone Encounter - Luz Meyer MD - 04/02/2021 2:12 PM CDT Called patient to give results. LMOM. DSE neg. Normal EF. Normal RV function. CT PE without PE but with worsening bilateral lung opacities (compared with PET 2018). May be related to recent COVID. Will repeat CT in 4-6 weeks to ensure resolution. 6MWT below LLN. O2 Desat requiring 1L. Was discharged on O2 from the hospital. Unclear why the PFT was not done but still needs it. ABG also not done. Eos 420 IgE low and allergen panel neg documented in this encounter Plan of Treatment Not on file documented as of this encounter Visit Diagnoses Not on filedocumented in this encounter Care Teams Combo Welder Relationship Specialty Start Date End Date Blake Lindsey MD [address] [place] [address] PCP - General 05/20/16 documented as of this encounter
--- OUTSIDE RECORDS SUMMARY | 2024-07-29 17:21 | XMS_ITS | Encounter Summary ---
Author Organization [facility] Health Address [address] [place] [address] Care Team Providers Care Pipe Layer Helper Name Role Phone Blake Lindsey MD Primary Care Provider [phone] Reason for Referral * Radiology Services (Routine) - Closed Specialty Diagnoses / Procedures Referred By Areil cano Referred To Contact CT Scan Diagnoses Lesion of parotid gland Procedures CT NECK SOFT TISSUE W CONT Castillo Max MD [address] [place] [address] [facility] [address] [place] [address] Referral ID Status Reason Start Date Expiration Date Visits Re quested Visits Authorized [id number] Closed 06/05/2021 06/05/2022 1 1 Encounter Details Date Type Department Care Team (Late st Contact Info) Description 06/05/2021 1:00 PM CDT Office Visit [facility] [address] Castillo Max MD [address] [place] [address] Lesion of parotid gland (Primary Dx) Social History Tobacco Use Types [...] PM CDT documented as of this encounter Last Filed Vital Signs Vital Sign Reading Time Taken Comments Blood Pressure 112/83 06/05/2021 12:51 PM CDT Pulse 109 06/05/2021 12:51 PM CDT Temperature 36.7 ??C (98 ??F) 06/05/2021 12:51 PM CDT Respiratory Rate 20 06/05/2021 12:51 PM CDT Oxygen Saturation 96% 06/05/2021 12:51 PM CDT Inhaled Oxygen Concentration - - Weight 85.7 kg (189 lb) 06/05/2021 12:51 PM CDT Height 160 cm (5' 3 ) 06/05/2021 12:51 PM CDT Body Mass Index 33.48 06/05/2021 12:51 PM CDT documented in this encounter Functional [...] SOFT TISSUE W CONT (07/01/2021 1:59 PM ENGINEER BYPRODUCT) Anatomical Region Laterality Modality Head Computed Tomogra phy 07/01/2021 3:50 PM ENGINEER BYPRODUCT Impressions 07/01/2021 4:36 PM ENGINEER BYPRODUCT IMPRESSION: 1. Given the technical differences, the [...] changes. This report was electronically signed by MAGED MINOR ??on 07/01/2021 4:36 PM . Narrative 07/01/2021 4:[address] SOFT TISSUE NECK WITH INTRAVENOUS CONTRAST. [...] and appears stable as visualized. Procedure Note Maged Minor MD - 07/01/2021 CT SOFT TISSUE [...] changes. This report was electronically signed by MAGED MINOR on 14:36 PM . Castillo Max MD CT ORDERABLES documented in this encounter Visit Diagnoses Diagnosis Lesion of parotid gland- Primary Lesion of parotid gland documented in this encounter Care Teams Pipe Layer Helper Relationship Specialty Start Date End Date Blake Lindsey MD [address] [place] [address] PCP - General 05/20/16 documented as of this encounter
--- OUTSIDE RECORDS SUMMARY | 2024-07-29 17:21 | XMS_ITS | Encounter Summary ---
Author Organization [facility] Health Address [address] [place] [address] Care Team Providers Care Tying Machine Operator Name Role Phone Blake Lindsey MD Primary Care Provider [phone] Encounter Details Date Type Department Care Team (Late st Contact Info) Description 11/05/2020 Orders Only [facility] [address] [place] [id number] Kandi Domingo RN Social History Tobacco Use Types Packs/Day Years [...] on filedocumented in this encounter Care Teams Tying Machine Operator Relationship Specialty Start Date End Date Blake Lindsey MD [address] [place] [address] PCP - General 05/20/16 documented as of this encounter
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
--- OUTSIDE RECORDS SUMMARY | 2024-07-29 17:21 | XMS_ITS | Encounter Summary ---
Author Organization [facility] Health Address [address] [place] [address] Care Team Providers Care Supervisor Finishing Room Name Role Phone Blake Lindsey MD Primary Care Provider [phone] Encounter Details Date Type Department Care Team (Late st Contact Info) Description 07/01/2021 2:00 PM SLOTTER OPERATOR Testing Visit [facility] [address] [facility], [place] [id number] LoweLeann, AuD [address] [facility] [address] [place] [address] Ear fullness, bilateral Social History Tobacco Use Types Packs/Day Years [...] COVID-19? No / Unsure 07/01/2021 1:04 PM SLOTTER OPERATOR documented as of this encounter Functional Status [...] Procedure Name Priority Date/Time Associated Diagnosis Comments AUDIOLOGY/TYMPANOME TRY ORDER Routine 07/01/2021 2:21 PM SLOTTER OPERATOR documented in this encounter Results * AUDIOLOGY/TYMPANOMETRY ORDER (07/01/2021 2:21 PM SLOTTER OPERATOR) Narrative Leann Cross AuD - 07/01/2021 2:31 PM SLOTTER OPERATOR History: Lakeisha Alejandra arrived for a hearing [...] change in hearing is suspected. Andrea Galeano. [facility]-A Clinical Fur Trapper [facility]-Department of Otolaryngology/Audiology [facility] [address] [place] [address] ([facility]) [place] [address] Leann Cross Andrea AUDIOLOGY [facility] O CRISTIANEERADESIREE documented in this encounter Visit Diagnoses Diagnosis Ear fullness, bilateral- Primary documented in this encounter Care Teams Supervisor Finishing Room Relationship Specialty Start Date End Date Blake Lindsey MD [address] [place] [address] PCP - General 05/20/16 documented as of this encounter
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
--- OUTSIDE RECORDS SUMMARY | 2024-07-29 17:21 | XMS_ITS | Encounter Summary ---
Author Organization [facility] Health Address [address] [place] [address] Care Team Providers Care Bss Solution Architect Name Role Phone Blake Lindsey MD Primary Care Provider [phone] Reason for Referral * Radiology Services (Routine) - Closed Specialty Diagnoses / Procedures Referred By Louac t Referred To Contact CT Scan Diagnoses Chronic respiratory failure with hypoxia (HCC) Acute respiratory failure due to COVID-19 (HCC) Procedures CT CHEST WO CONT AND Joe Sands MD [address] [place] [address] DIVISION [place] [address] [facility] [address] [place] [address] Referral ID Status Reason Start Date Expiration Date Visits Re quested Visits Authorized [id number] Closed 04/15/2021 04/15/2022 1 1 Reason for Visit * Reason Comments Follow-up Results Encounter Details Date Type Department Care Team (Late st Contact Info) Description 04/15/2021 1:00 PM CDT Office Visit [facility] [address] [place] [address] Luz Meyer MD [address] [place] [address] Chronic obstructive pulmonary disease, unspecified COPD type (HCC) (Primary Dx); Chronic respiratory failure with hypoxia (HCC); Acute respiratory failure due to COVID-19 (HCC) Social History Tobacco Use Types Packs/Day [...] Sign Reading Time Taken Comments Blood Pressure 108/68 04/15/2021 1:26 PM CDT Pulse 115 04/15/2021 1:26 PM CDT Temperature 36.7 ??C (98.1 ??F) 04/15/2021 1:26 PM CD T Respiratory Rate - - Oxygen Saturation 94% 04/15/2021 1:26 PM CDT Inhaled Oxygen Concentration - - Weight 86.5 kg (190 lb 12.8 oz) 04/15/2021 1:26 PM CDT Height 160 cm (5' 3 ) 04/15/2021 1:26 PM CDT Body Mass Index 33.8 04/15/2021 1:26 PM CDT documented in this encounter Functional [...] this encounter Patient Instructions * Patient Instructions* Patricia Betancur - 04/15/2021 1:26 PM CDT [facility] General Internal Medicine is committed to providing you with the best care possible. We areworking towards becoming a Patient Centered Medical Home (PCM), a model of care that puts patientsat the forefront of care. PCM Centers build better relationships between patients and their clinical care teams. Practices that earn recognition have made a commitment to continuous quality improvement and a patient-centered approach to care. Shared decision making is a pollard component of patient-centered health care. It is a process in whichclinicians and patients work together to make decisions based on clinical evidence that balances risk and expected outcomes with patient preferences and values. How to Contact Us Between Office Visits For scheduling routine appointments, requesting refills or leaving a message for your doctor, the office phone is [phone]. You will be given options to get to the assistance you need. We have both in person and telehealth (telephone and video) appointments available. Phone lines are open from 8:00 am to 4:30 pm Wednesday through Wednesday. If you become ill and need to be seen before your next visit, we will generally be able to see you that day, although you may see someone other than your own primary care provider. Please call us at [phone], option 1, then option 1 in the morning you would like to be seen. Our fax number is [phone]. Instructions for reaching the practice after office hours For urgent concerns that cannot wait until phone lines are open on the next business day, please call [phone] to speak to the covering General Internal Medicine provider. Identify yourself as a patient in our practice and give the tower dragline operator your doctor's name. The tower dragline operator will contact the physician global head advertiser solutions. You can generally expect a return call within 30 minutes. Prescription Refills Contact your pharmacy to request all refills. You may also send a [employer] message for refills. Please allow a minimum of 48-72 hours for your prescription to be completed. Your pharmacy will notify you when your prescription is ready to be picked up. SCHEDULE YOUR OWN APPOINTMENT AT [facility] We are excited to announce that some [facility] appointments can now be scheduled online. If you are not able to access the type of appointment that you need using this service, our [facility] Scheduling department will be happy to continue to serve you. Use one of these options to schedule your next appointment today: ??? Access self-scheduling options by visiting the [facility] Online Scheduling Webpage. ??? Make an appointment by calling [facility] Central [phone] Visit our website at [email or web address] for information about our practice and an interactive health encyclopedia. documented in this encounter Progress Notes * Luz Meyer MD - 04/15/2021 1:14 PM CDT Patient's Name: Lakeisha Alejandra Date of : 1970 Date of Visit: 03/18/2021 PULMONARY CLINIC NOTE The patient is a 50 year old female who is here to establish care with the [facility] for: 1. COPD 2. SOB 3. NSIP ? Subjective: History of Present Illness: 03/18/21 - presentation, COVID discharge on O2 01/2021 No new symptoms. Last night watching TV with pulse ox on room air for 1 hour, lowest sat was 89%, improved with deepinspiration on room air. Ran out of oxygen when shopping, still satting > 88%. Improved ability to walk around and strength. Using 2L O2 with exertion With activity, needs 2L O2. Uses 1L O2 with rest. Using incentive spirometry No cough, hemoptysis No f/c Covid vaccine started 03/31. Reviewed results. Started prednisone Sat - no change in sxs. Has munchies. Still on Trelegy Used albuterol last 2 weeks ago. Uses albuterol nebs once per day out of habit. Having episodes of flushing and sweating while resting. BP during that 120s but normally runs 90s. Has been having some fluid retention and taking lasix regularly. Previous history: December 2020 - pneumonia, zpack, steroids February 01 - + COVID February 07 - was back to full activity but took a nap and woke up with pulse ox of 78% - called ambulance Hospitalized at [facility] for several days - up to [...] ??? BIOPSY ??? HX SPINAL FUSION ??? [place] FEMUR/KNEE SURG UNLISTED both knees ??? LUTHER [...] fluticasone propionate (FLONASE) 50 MCG/ACT nasal spray, [place] 2 sprays into each nostril once daily, [...] 0 ??? NARCAN 4 MG/0.1ML nasal spray, [place] 4 mg into each nostril as needed, Disp: , Rfl: ??? NYSTOP [id number] UNIT/GM powder, Apply 1 Dose to affected [...] and not in cardiopulmonary distress. On O2 [place] and anicteric conjunctivae. Vesicular breath sounds. No [...] of Isovue-[address] scans at [facility] are performed using dose optimization techniques [...] PFT/Spirometry REviweed 2018, normal ACT = 18 04/15/21 Assessment and Plan: ASSESSMENT: 1. Acute hypoxic on chronic hypercapnic respiratory failure, COPD, asthma, possible overlap 1. Due to COVID initially - may be prolonged COVID v COPD v asthma 2. DSE normal, CT PE without PE 3. Eos elevated 420, IgE normal, allergen panel neg 2. NSIP on CT, likely due to COVID but cannot rule out underlying ILD 3. Central sleep apnea, not on CPAP currently due to mechanical issues PLAN: Diagnostic: Complete PFT with bronchodilator Prednisone 40mg qd for 2 weeks, started Sat Repeat Oxygen desaturation study in 2-3 months HRCT in 3 months to follow changes Sleep referral Therapeutic: Cont Trelegy Cont prn albuterol Cont Cetirizine, flonase, singulair Patient congratulated cessation from: Marijuana Discussed COVID precautions, including mask, social distancing, and frequent hand washing. Recommended the vaccine. Discussed risks and benefits. BP management per PCP. Follow-up in 2-3 months This patient was seen and discussed with Dr. Lomas who was in agreement with the plan. Dolly Meyer M.D. Pulmonary and Critical Care Fellow [facility] Division of Pulmonary, Critical Care and Sleep Medicine 03/18/2021 Associated attestation - Joe Lomas MD - 04/16/2021 4:01 PM CDT I saw and evaluated the patient. I agree with findings and the plan of care as documented in the fellow note. Joe Lomas MD Steward/Stewardess Second Classsubstance abuse prevention coordinator Division of Pulmonary, Critical Care, & Sleep Medicine [facility] documented in this encounter Plan of Treatment Not on file documented as of this encounter Results * CT CHEST WO [...] PM . Joe Lomas MD CT ORDERABLES * PFT OXYGEN DESATURATION STUDY (05/28/2021 1:16 PM CDT) Impressions Rosendo Martinez MD - 05/28/2021 1:16 PM CDT [facility] DEPARTMENT OF PULMONARY, CRITICAL CARE, AND SLEEP MEDICINE OXYGEN TITRATION STUDY Lakeisha Loving Justyn 05/29/2021 INTERPRETATION The test was performed on [...] for a total of 8 minutes. Kris Trimble MD ( Fellow) Division of Pulmonary, Critical Care, & Sleep Medicine [facility] [employer] [facility] 05/29/2021 3:57 PM ?? I have reviewed the above study and agree with the interpretation as listed above. Rosendo Martinez MD Steward/Stewardess Second Class of Pulmonary & Critical Care Medicine [facility] Pager [phone] Narrative Rosendo Martinez MD - 05/28/2021 1:16 PM CDT Kris Trimble MD ? 05/29/2021 ??3:56 PM Joe Lomas MD PFT ORDERABLES documented in this encounter Visit Diagnoses Diagnosis Chronic obstructive pulmonary disease, unspecified COPD type (HCC)- Primary Chronic respiratory failure with hypoxia (HCC) Chronic respiratory failure Acute respiratory failure due to COVID-19 (HCC) Hypoxia Hypoxemia Chronic obstructive pulmonary disease, unspecified COPD type (HCC) Chronic respiratory failure with hypoxia (HCC) Chronic respiratory failure Chronic respiratory failure with hypoxia (HCC) Chronic respiratory failure Acute respiratory failure due to COVID-19 (HCC) documented in this encounter Care Teams Bss Solution Architect Relationship Specialty Start Date End Date Blake Lindsey MD [address] [place] [address] PCP - General 05/20/16 documented as of this encounter
--- OUTSIDE RECORDS SUMMARY | 2024-07-29 17:21 | XMS_ITS | Encounter Summary ---
Author Organization [facility] Health Address [address] [place] [address] Care Team Providers Care Burner Shaft Name Role Phone Blake Lindsey MD Primary Care Provider [phone] Reason for Visit * Radiology Services (Routine) - Closed Specialty Diagnoses / Procedures Referred By Arile cano Referred To Contact Interventional Radiology Diagnoses Hodgkin lymphoma, unspecified Hodgkin lymphoma type, unspecified body region (HCC) Procedures IR US FINE NEEDLE ASPIRATION Nia Augustin, FELT HAT INSPECTOR AND PACKER-IT COORDINATOR [address] [place] [address] [facility] [address] [place] [address] Referral ID Status Reason Start Date Expiration Date Visits Re quested Visits Authorized [id number] Closed 11/04/2020 11/01/2021 1 1 Encounter Details Date Type Department Care Team (Latest Contact Info) Description 11/04/2020 10:07 AM CDT - 11/04/2020 2:44 PM CDT Hospital Encounter [facility] [address] [place] [id number] Nia Augustin, FELT HAT INSPECTOR AND PACKER-IT COORDINATOR [address] [place] [address] Vinita Barajas MD [address] [facility] [address] [place] [phone] [facility] Discharge Disposition: Home or Self Care Social [...] Sign Reading Time Taken Comments Blood Pressure 125/87 11/04/2020 2:15 PM CDT Pulse 77 11/04/2020 2:15 PM CDT Temperature 36.5 ??C (97.7 ??F) 11/04/2020 1 0:42 AM CDT Respiratory Rate 22 11/04/2020 2:15 PM CDT Oxygen Saturation 96% 11/04/2020 2:15 PM CDT Inhaled Oxygen Concentration - - Weight 85.2 kg (187 lb 14.4 oz) 021 10:42 AM CDT Height 160 cm (5' 3 ) 11/04/2020 10:42 AM CDT Body Mass Index 33.28 11/04/2020 10:42 AM CDT documented in this encounter Functional [...] Spasms of the Bronchus 1 vial 01/12/2019 baclofen (LIORESAL) 20 MG tablet Take 1 (one) tablet by mouth as directed 08/20/2020 cetirizine (ZYRTEC) 10 MG tablet Take 1 (one) tablet by mouth once daily as needed 04/17/2020 escitalopram (LEXAPRO) 20 MG tablet Take 1 (one) tablet by mouth once daily 07/19/2020 furosemide (LASIX) 20 MG tabletIndications:Bernardo ma Take 1 tablet by mouth once daily Reasons: Edema 30 tablet 01/12/2019 gabapentin (NEURONTIN) 300 MG capsule Take 1 (one) capsule by mouth 3 times daily 06/04/2020 montelukast (SINGULAIR) 10 MG tablet Take 1 (one) tablet by mouth once daily 06/21/2020 NYSTOP 230899 UNIT/GM powder Apply 1 Dose to affected area as directed 1 03/06/2019 omeprazole (PRILOSEC) 20 MG capsule Take 1 (one) capsule by mouth once daily 08/09/2020 ondansetron (ZOFRAN) 4 MG tablet Take 1 (one) tablet by mouth as needed for Nausea/Vomiting 04/17/2020 potassium chloride ER (KLOR-CON) 20 MEQ tablet Take 1 (one) tablet by mouth once daily 0 04/05/2019 QUEtiapine (SEROQUEL) 100 MG tabletIndications:Ede or Depressive [...] mouth nightly as needed for Insomnia 06/26/2020 ANORO ELLIPTA 62.5-25 MCG/INH inhaler Inhale 1 puff by mouth once daily 2 04/04/2019 03/18/2021 azithromycin (ZITHROMAX) 250 MG tablet Take 2 tabs today, then 1 tab daily for next 4 days 6 tablet 09/26/2020 03/18/2021 fluticasone propionate (FLONASE) 50 MCG/ACT nasal spray [place] 2 sprays into each nostril once daily 16 g 5 08/08/2020 08/06/2022 lidocaine (LIDODERM) 5 % patch Apply 1 (one) patch to skin once daily 30 patch 09/11/2020 07/15/2021 methylPREDNISolone (MEDROL DOSEPAK) 4 MG tablet Take by mouth as directed Take as directed by mouth per package instructions. 1 Each 07/18/2020 03/18/2021 mupirocin (BACTROBAN) 2 % ointment Apply to affected area 3 times daily To bilateral nares 22 g 07/18/2020 11/05/2020 naproxen (NAPROSYN) 500 MG tablet Take 1 (one) tablet by mouth 2 times daily as needed for Pain 20 tablet 09/11/2020 07/15/2021 NARCAN 4 MG/0.1ML nasal spray [place] 4 mg into each nostril as needed [...] of this encounter Progress Notes * Luz Beltran RN - 11/04/2020 2:10 PM CDT Procedure completed tolerated well, VSS and no complaint of discomfort/distress, band aid dressing applied which is clean,dry and intact. Pt remained on stretcher throughout procedure. Moved to post room # 14. Report given to Milli GARCIA, no questions or concerns. Bed in lowest position, side rails upx 2 with call light in reach. * Luz Beltran RN - 11/04/2020 12:45 PM CDT Transported patient from pre op area room # 14, completed timeout with Milli GARCIA. Admitted to IR Lab# 5 via stretcher. Monitor attached VSS, no complaint of pain or discomfort. documented in this encounter H&P Notes * Julio Pang MD - 11/04/2020 12:01 PM CDT Vascular & Interventional Radiology Short Pre-Procedure History & Physical Patient: Lakeisha Alejandra Age: [age] year old Date of : 1970 Date: 11/04/2020 Location: VIR Subjective: 49 year old female presents to IR today for scheduled neck node biopsy. The patient has a left parotid lesion/node as well as a left cervical 2b node that are in question. the patient reports that she has been able to palpate her parotid node and that it hurts now. The 2b node has increased in sizesince her last scan. On discussing options, it would be appropriate to sample both. The patient does have chronic right ear pain, and feels this may be flaring up again. No fever or discharge at this time. Past Medical History: Diagnosis Date ??? Asthma ??? COPD (chronic obstructive pulmonary disease) ??? High cholesterol ??? Hodgkins lymphoma ??? Migraine ??? Sleep apnea Past Surgical History: Procedure Laterality Date ??? Back Surgery ??? BIOPSY ??? HX SPINAL FUSION ??? TX FEMUR/KNEE SURG UNLISTED both knees ??? LUTHER TOOTH EXTRACTION Medications Prior to Admission Medication Sig Dispense Refill ??? albuterol (PROVENTIL;VENTOLIN) (2.5 MG/3ML) 0.083% nebulizer solution INHALE 3 ML BY NEBULIZATION 3 TIMES DAILY Reasons: Disease Involving Spasms of the Bronchus (Patient taking differently: Inhale 3 mg by mouth 3 times daily INHALE 3 ML BY NEBULIZATION 3 TIMES DAILY Reasons: Disease Involving Spasms of the Bronchus) 1 vial 0 ??? ANORO ELLIPTA 62.5-25 MCG/INH inhaler Inhale 1 puff by mouth once daily 2 ??? azithromycin (ZITHROMAX) 250 MG tablet Take 2 tabs today, then 1 tab daily for next 4 days (Patient not taking: Reported on 11/04/2020) 6 tablet 0 ??? baclofen (LIORESAL) 20 MG tablet ??? cetirizine (ZYRTEC) 10 MG tablet Take 10 mg by mouth once daily ??? escitalopram (LEXAPRO) 20 MG tablet TAKE 1 TABLET BY MOUTH EVERY DAY IN THE MORNING ??? fluticasone propionate (FLONASE) 50 MCG/ACT nasal spray [place] 2 sprays into each nostril once daily 16 g 5 ??? furosemide (LASIX) 20 MG tablet Take 1 tablet by mouth once daily Reasons: Edema 30 tablet 0 ??? gabapentin (NEURONTIN) 300 MG capsule Take 300 mg by mouth 3 times daily ??? lidocaine (LIDODERM) 5 % patch Apply 1 (one) patch to skin once daily (Patient not taking: Reported on 11/04/2020) 30 patch 0 ??? methylPREDNISolone (MEDROL DOSEPAK) 4 MG tablet Take by mouth as directed Take as directed by mouth per package instructions. (Patient not taking: Reported on 11/04/2020) 1 Each 0 ??? montelukast (SINGULAIR) 10 MG tablet Take 10 mg by mouth once daily ??? mupirocin (BACTROBAN) 2 % ointment Apply to affected area 3 times daily To bilateral nares (Patient not taking: Reported on 11/04/2020) 22 g 0 ??? naproxen (NAPROSYN) 500 MG tablet Take 1 (one) tablet by mouth 2 times daily as needed for Pain20 tablet 0 ??? NARCAN 4 MG/0.1ML nasal spray [place] 4 mg into each nostril as needed ??? NYSTOP [id number] UNIT/GM powder Apply 1 Dose to affected area 2 times daily 1 ??? omeprazole (PRILOSEC) 20 MG capsule Take 20 mg by mouth once daily ??? ondansetron (ZOFRAN) 4 MG tablet Take 4 mg by mouth as needed ??? potassium chloride ER (KLOR-CON) 20 MEQ tablet Take 1 tablet by mouth once daily 0 ??? QUEtiapine (SEROQUEL) 100 MG tablet Take 1 tablet by mouth at bedtime Reasons: Major DepressiveDisorder 30 tablet 0 ??? QUEtiapine (SEROQUEL) 50 MG tablet Take 50 mg by mouth at bedtime 0 ??? RELISTOR 150 MG tablet TAKE 3 TABLETS BY MOUTH EVERY DAY IN THE MORNING ??? SENEXON-S 8.6-50 MG tablet Take 1 tablet by mouth once daily Reasons: Constipation (Patient nottaking: Reported on 11/04/2020) 30 tablet 0 ??? spironolactone (ALDACTONE) 25 MG tablet Take 1 tablet by mouth once daily 2 ??? SUMAtriptan (IMITREX) 50 MG tablet Take 1 tablet by mouth once as needed for Migraine Maximum daily dose: 200mg/24 hours Reasons: Migraine Headache 30 tablet 0 ??? terbinafine (LAMISIL) 250 MG tablet Take 250 mg by mouth once daily 2 ??? traZODone (DESYREL) 50 MG tablet Take 50 mg by mouth nightly as needed ??? TRELEGY ELLIPTA 100-62.5-25 MCG/INH Inhale 1 puff by mouth every 6 hours as needed ??? XTAMPZA ER 9 MG capsule Take 9 mg by mouth 2 times daily Allergies Allergen Reactions ??? Amoxicillin Rash ??? Penicillins Rash ??? Codeine Other Passes out, Passes out ??? Epinephrine Other When injected in mouth for dental procedures, makes extremities go numb Social History Tobacco Use ??? Smoking status: Former Smoker Packs/day: 1.00 Quit date: 11/30/1997 Years since quittin.9 ??? Smokeless tobacco: Never Used Substance Use Topics ??? Alcohol use: Yes Alcohol/week: 0.8 standard drinks Comment: once a week Family History Problem Relation Name Age of Onset ??? Heart Disease Mother Status: Alive ??? Diabetes Mother ??? Hypertension Mother ??? Cancer Father Status: Alive ??? Heart Disease Father ??? None Known Brother Status: Alive ROS: Pertinent positive and negatives are mentioned above. All other systems reviewed were negative. Objective: Physical examination: Patient Vitals for the past 8 hrs: BP Temp Temp src Pulse Resp SpO2 Height Weight 11/04/20 1105 108/67 -- -- 96 31 93 % -- -- 11/04/20 1042 -- 97.7 ??F (36.5 ??C) Temporal -- -- -- 1.6 m (5' 3 ) 85.2 kg (187 lb 14.4 oz) General: well nourished, NAD Eyes: no scleral icterus, no lid lag ENT: atraumatic, palpable nodule on inferior aspect of left ear corresponding to left parotid nodule seen on recent imaging Neck: supple, trachea midline Lungs: normal respiratory effort, no accessory muscle use Cardiovascular: RRR Abdomen: soft, nontender, nondistended Extremities: warm, no pitting edema Psychiatric: AOx3, appropriate mood and affect Laboratory results: Recent Labs Component Name 09/11/20 1232 06/06/20 1348 01/11/19 1432 03/15/14 0915 03/15/14 0915 11/23/13 1411 11/23/13 1411 11/01/13 1116 WBC 10.4 7.4 9.9 - 5.2 - 6.7 5.1 HGB 15.0 14.6 16.1* - 13.6 - 13.1 13.2 HCT 44.5 44.0 46.8* - 40.3 - 38.5 39.0 PLT - - - - 159 - 190 159 PLTCOUNT 219 165 205 - - - - - - = values in this interval not displayed. Recent Labs Component Name 09/11/20 1232 01/19/19 1514 04/17/172008 INR 1.1 1.0 1.1 Recent Labs Component Name 10/18/20 1310 09/11/20 1232 06/06/20 1348 01/11/19 1432 11/17/18 1334 03/25/15 1420 03/25/15 1420 03/25/15 1243 11/23/13 1411 11/23/13 1411 NA - - 141 142 141 - - - - 142 K - - - - - - 3.6 3.7 - 4.0 GLUCOSE - 89 128* 114 102 - - - - - CREATININE - 0.77 0.7 0.8 0.8 - - - - 0.72 EGFR >60 >60 >60 >60 >60 - - - - - - = values in this interval not displayed. Recent Labs Component Name 09/11/20 1232 06/06/20 1348 01/11/19 1432 11/17/18 1334 ALB - 4.0 4.1 3.9 TBILI - 0.4 0.8 0.4 ALT 20 14 26 54 AST 23 14 18 28 ALKPHOS 90 95 96 93 Imaging: Relevant imaging studies were personally reviewed by myself and the IR attending. Pre-Sedation Evaluation: Not expected to use sedation Level: Moderate with Versed and Fentanyl ASA: III. Patient with severe systemic disease Mallampati: II (soft palate, uvula, fauces visible) Informed consent obtained? Yes Pre-procedure vitals reviewed? Yes History of prior adverse reaction to sedation or anesthesia? No Based on the above information, the patient is an appropriate candidate for the level of sedation planned. Assessment: Patient with known H/O Hodgkins lymphoma with slightly enlarging left parotid and left cervical level 2b lymph nodes, presenting for Fine needle aspiration of these lesions. SInce the cervical lymph node seems to have grown in size more than the parotid lesion, it would be appropriate to sample both. Plan: 1. Pertinent labs and relevant imaging studies were reviewed. 2. Informed consent was obtained from the patient after explaining the risks, benefits, and alternatives of the procedure. Risks include but are not limited to infection, bleeding, and injury to surrounding structures. 3. All questions were answered to the best of my ability. 4. Planned procedure: Fine needle aspiration cytology of left parotid/cervical lymph nodes. documented in this encounter OR Notes * Brief Op Note - Julio Pang MD - 11/04/2020 2:05 PM CDT Vascular & Interventional Radiology Brief Post-Procedure Note Patient: Lakeisha Alejandra Attending: Julio Pang MD Billing Services Manager: Aram Hernandez Diagnosis/Indication: Hodgkin's lymphoma Procedure: FNAC from left parotid and deep cervical lymph nodes Findings: FNAC from left parotid and deep cervical lymph node(2B) performed, 4 passes and three passes respectively, using 25 G needles. A sample was collected for C&S as recommended by cytopathologist who was on site to process samples, which were felt to be adequate. Anesthesia: Local with 1% Lidocaine Additional medications given: None Estimated blood loss: Minimal Specimens: 7 x 25G FNA passes Immediate complications: None Follow-up: With referring oncology team Time out and final pre-procedure assessment completed immediately prior to start of procedure. Intra-procedure orders and medication record reviewed. Medications and doses administered by staff as verbally ordered. See detailed procedure note with images in PACS. documented in this encounter Plan of Treatment Not on file documented as of this encounter Procedures Procedure Name Priority Date/Time Associated Diagnosis Comments IR US FINE NEEDLE ASPIRATION Routine 11/04/2020 2:15 PM CDT Hodgkin lymphoma, unspecified Hodgkin lymphoma type, unspecified body region (HCC) CULTURE ABSCESS+GRAM STAIN Routine 11/04/2020 2:07 PM CDT Hodgkin lymphoma, unspecified Hodgkin lymphoma type, unspecified body region (HCC) Parotid nodule FINE NEEDLE ASPIRATION (STL) Routine 11/04/2020 1:36 PM CDT Parotid nodule documented in this encounter Results * IR US FINE NEEDLE ASPIRATION (11/04/2020 2:15 PM CDT) Anatomical Region Laterality Modality X-Ray Angiograph y 11/04/2020 4:31 PM CDT Impressions 11/04/2020 4:45 PM CDT Impression: 1. Ultrasound guided fine needle aspiration of left parotid nodule, as described above. The pathology report is pending at the time of this dictation. 2.Ultrasound-guided fine-needle aspiration of left level IIb cervical lymph node. I, Dr. Julio Pang, was present and performed/supervised the entire procedure. This report was electronically signed by JULIO COOPER ??on 11/04/2020 4:45 PM . Narrative 11/04/2020 4:45 PM CDT History: History of large consistent lymphoma, slowly enlarging left superficial intraparotid nodule/node and an enlarging left deep cervical level 2B lymph node are being targeted for FNAC. Operators: Dr. Julio Pang, Attending Physician Anesthesia: Local anesthesia - [...] complications associated with the procedure. Procedure Note Julio Pang MD - 11/04/2020 History: History of large consistent lymphoma, slowly enlarging left superficial intraparotid nodule/node and an enlarging left deep cervical level 2B lymph node are being targeted for FNAC. Operators: Dr. Julio Pang, Attending Physician Anesthesia: Local anesthesia - [...] level IIb cervical lymph node. I, Dr. Julio Pang, was present and performed/supervised the entire procedure. This report was electronically signed by JULIO COOPER on 11/04/2020 4:45 PM . Nia Augustin FELT HAT INSPECTOR AND PACKER-IT COORDINATOR IR ORDERABLES * CULTURE ABSCESS+GRAM STAIN (11/04/2020 2:07 PM CDT) Culture No growth NEVIN 11/07/2020 6:25 AM CDT [facility]CROBIOLOG[facility] Gram Stain No organisms seen 021 6:25 AM CDT [facility] MICROBIOLOGY Gram Stain Rare Polymorphonuclear cells 11/07/2020 6:25 AM CDT [facility]CRO[facility]OLOG[facility] Microbiology MASS OF PAROTID GLAND / Unknown Collection / Unknown 11/04/2020 2:07 PM CDT 11/04/2020 4:06 PM CDT Julio Pang MD LAB - MICROBIOL OGY ORDERABLES [facility] MICROBIOLOGY [address] [place] [address], [facility] [phone] * FINE NEEDLE ASPIRATION (STL) (11/04/2020 1:36 PM CDT) Case Report Medical Cytology Report ? Case: [id number] ? Authorizing Provider: ??Nia Augustin, [place] ?Collected: ? 11/04/2020 01:36 PM ? Ordering Location: ? [facility] ?Received: ?11/04/2020 03:09 PM ? Pathologist: ? Jaun Davison MD ? Specimens: ?? A) - Lymph Node, parotid left ? B) - Cervical Lymph Node , left deep cervical ? 11/05/2020 5:03 PM CDT [facility] Specimen Adequacy Adequate cellularity for evaluation. 11/05/2020 5:03 PM CDT [facility] Final Diagnosis Lymph node, left parotid, US-guided FNA: - Neoplasm: Benign (see comment). Lymph node, left level 2B 'deep left cervical', US-guided FNA: - Mixed hematopoietic elements with some atypical forms (see comment). 11/05/2020 5:03 PM CDT [facility] Clinical History The patient is a 49-year-ol woman with history of stage IV classic Hodgkin's lymphoma status post chemotherapy who was found to have a 1.2 cm intraparotid nodule on a re-staging exam. 11/05/2020 5:03 PM [facility] Gross Description A) 2 [...] 2: some lymphocytes (13:40) 11/05/2020 5:03 PM [facility] Microscopic Description Parotid (A), [...] in this lymph node. 11/05/2020 5:03 PM [facility] Disclaimer The performance characteristics of all immunohistochemical and indirect immunofluorescence stains (if any) cited in this report were determined by the Histopathology Laboratory of [facility]. Some of these tests rely on the use of analyte-specific reagents and are subject to specific labeling requirements by the [place] Food and Drug Administration. Such tests were developed by the Histology Laboratory of [facility] and have not been cleared or approved [...] attending (teaching) pathologist. 11/05/2020 5:03 PM CDT [facility] Embedded Images 11/05/2020 5:03 PM CDT [facility] Pathology/Cytology ENTIRE LYMPH NODE / Unknown Collection / Unknown 11/04/2020 1:36 PM CDT 11/04/2020 3:09 PM CDT Miscellaneous samples (specimen) ENTIRE CERVICAL LYMPH NODE / Unknown 11/04/2020 1:36 PM CDT 11/04/2020 3:09 PM CDT Nia Augustin APRN-FAROOQ LAB - PATHOLOGY/CY TOLOGY ORDERABLES [facility] [address] [phone] documented in this encounter Visit Diagnoses Diagnosis Parotid nodule- Primary Other specified diseases of the salivary glands Hodgkin lymphoma, unspecified Hodgkin lymphoma type, unspecified body region (HCC) documented in this encounter Administered Medications Inactive Administered Medications - up to 3 most recent administrations Medication Order MAR Action Action Date Dose Rate Site 0.9% NaCl injection 1-10 mL 1-10 mL, Intracatheter, PRN, Other, peripheral line flush, Starting on Wed11/04/20 at 1042, Until Wed11/04/20 at 1545, Flush peripheral IV catheter with 1-10 mL of normal saline before and after medications and prn to clear blood from the line or to verify patency., Pre-procedure (IR) 0.9% NaCl injection 3 mL 3 mL, Intracatheter, EVERY 8 HOURS, First dose on Wed11/04/20 at 1400, Until Discontinued, Flush peripheral IV catheter with 3 mL of normal saline every 8 hours., Pre-procedure (IR) lidocaine (Xylocaine) 1 % injection Subcutaneous, ONCE PRN, Starting on Wed11/04/20 at 1307, Until Wed11/04/20 at 1307 $ Given 11/04/2020 1:07 PM CDT 10 mL See C omments documented in this encounter Active and Recently Administered Medications Times are shown in CDT. Scheduled Medication Order 11/02/2020 11/03/2020 11/04/2020 0.9% NaCl injection 3 mL(Linked Group 1) 3 mL, Intracatheter, EVERY 8 HOURS, First dose on Wed11/04/20 at 1400, Until Discontinued, Flush peripheral IV catheter with 3 mL of normal saline every 8 hours., Pre-procedure (IR) 1400 (Due) PRN Medication Order 11/02/2020 11/03/2020 11/04/2020 0.9% NaCl injection 1-10 mL(Linked Group 1) 1-10 mL, Intracatheter, PRN, Other, peripheral line flush, Starting on Wed11/04/20 at 1042, Until Wed11/04/20 at 1545, Flush peripheral IV catheter with 1-10 mL of normal saline before and after medications and prn to clear blood from the line or to verify patency., Pre-procedure (IR) lidocaine (Xylocaine) 1 % injection (COMPLETED) Subcutaneous, ONCE PRN, Starting on Wed11/04/20 at 1307, Until Wed11/04/20 at 1307 1307 ($ Given - Prov ider: Julio Pang MD - Comment: for tbl) Linked Groups Order Group 1: SALINE LOCK, INSERT AND MAINTAIN (CANCELED) Routine, CONTINUOUS, Starting on Wed11/04/20 at 1045, Until Specified, Pre- procedure (IR), New collection And 0.9% NaCl injection 3 mLJump to med 3 mL, Intracatheter, EVERY 8 HOURS, First dose on Wed11/04/20 at 1400, Until Discontinued, Flush peripheral IV catheter with 3 mL of normal saline every 8 hours., Pre-procedure (IR) And 0.9% NaCl injection 1-10 mLJump to med 1-10 mL, Intracatheter, PRN, Other, peripheral line flush, Starting on Wed11/04/20 at 1042, Until Wed11/04/20 at 1545, Flush peripheral IV catheter with 1-10 mL of normal saline before and after medications and prn to clear blood from the line or to verify patency., Pre-procedure (IR) documented in this encounter Care Teams Burner Shaft Relationship Specialty Start Date End Date Blake Lindsey MD [address] [place] [address] PCP - General 05/20/16 documented as of this encounter
--- OUTSIDE RECORDS SUMMARY | 2024-07-29 17:21 | XMS_ITS | Encounter Summary ---
Author Organization [facility] Health Address [address] [place] [address] Care Team Providers Care Header Operator Name Role Phone Blake Lindsey MD Primary Care Provider [phone] Encounter Details Date Type Department Care Team (Late st Contact Info) Description 04/02/2021 Orders Only [facility] [address] , [address] [place] [address] Luz Meyer MD [address] [place] [address] Social History Tobacco Use Types Packs/Day Years [...] on filedocumented in this encounter Care Teams Header Operator Relationship Specialty Start Date End Date Blake Lindsey MD [address] [place] [address] PCP - General 05/20/16 documented as of this encounter
--- OUTSIDE RECORDS SUMMARY | 2024-07-29 17:21 | XMS_ITS | Encounter Summary ---
Author Organization [facility] Health Address [address] [place] [address] Care Team Providers Care Philatelic Consultant Name Role Phone Blake Lindsey MD Primary Care Provider [phone] Encounter Details Date Type Department Care Team (Late st Contact Info) Description 08/08/2021 Orders Only [facility] - Orthopedics [address] [place] [address], [place] [address] Wai Lowry MD [address] [place] [address] OF ORTHOPEDIC SURGERY [place], [place] [id number] Tear of right acetabular labrum, initial encounter Social History Tobacco Use Types Packs/Day Years [...] COVID-19? No / Unsure 08/13/2021 3:[address] ADMINISTRATOR documented as of this encounter Functional Status [...] as of this encounter Results * XR HIP RIGHT 2VW OR MORE (08/13/2021 2:[address] ADMINISTRATOR) Anatomical Region Laterality Modality Pelvis, Lower Extremity [facility] 08/13/2021 2:[address] ADMINISTRATOR Impressions 08/13/2021 2:[address] ADMINISTRATOR IMPRESSION: No acute findings. This report was electronically signed by CHARLIE GOODE ??on 08/13/2021 2:50 PM . Narrative 08/13/2021 2:[address] ADMINISTRATOR EXAMINATION: XR PELVIS 1 OR 2VW, XR [...] Hip joint is normally aligned. Procedure Note Charlie Goode MD - 08/13/2021 EXAMINATION: XR PELVIS [...] findings. This report was electronically signed by CHARLIE GOODE on 08/13/2021 2:50 PM . Wai Lowry MD DIAGNOSTIC IMAGING O RDERABLES documented in this encounter Visit Diagnoses Diagnosis Tear of right acetabular labrum, initial encounter- Primary Tear of right acetabular labrum, initial encounter documented in this encounter Care Teams Philatelic Consultant Relationship Specialty Start Date End Date Blake Lindsey MD [address] [place] [address] PCP - General 05/20/16 documented as of this encounter
--- OUTSIDE RECORDS SUMMARY | 2024-07-29 17:21 | XMS_ITS | Encounter Summary ---
Author Organization [facility] Health Address [address] [place] [address] Care Team Providers Care Physics Instructor Name Role Phone Blake Lindsey MD Primary Care Provider [phone] Encounter Details Date Type Department Care Team (Late st Contact Info) Description 06/05/2021 Orders Only [facility] [address] Bryanna Gonzalez RN Hodgkin lymphoma, unspecified Hodgkin lymphoma type, unspecified [...] (ABNORMAL) COMPREHENSIVE METABOLIC PANEL (06/05/2021 12:44 PM [facility]) BUN 19 7 - 26 mg/dL 06/05/2021 1:20 PM [facility] Creatinine 0.72 0.56 - 0.96 mg/dL 06/05/2021 1:20 PM [facility] Sodium 140 136 - 145 mmol/L 06/05/2021 1:20 PM [facility] Potassium 4.3 3.5 - 4.5 mmol/L 06/05/2021 1:20 PM [facility] Chloride 105 98 - 107 mmol/L 06/05/2021 1:20 PM [facility] CO2 22 22 - 29 mmol/L 06/05/2021 1:20 PM [facility] Glucose 103 70 - 115 mg/dL 06/05/2021 1:20 PM [facility] Calcium 10.4(H) 8.4 - 10.2 mg/dL 06/05/2021 1:20 PM [facility] Protein Total 8.0 6.0 - 8.3 g/dL 06/05/2021 1:20 PM [facility] Albumin 4.2 3.4 - 5.0 g/dL 06/05/2021 1:20 PM [facility] Bilirubin Total 0.6 0.2 - 1.2 mg/dL 06/05/2021 1:20 PM [facility] Alkaline Phosphatase 90 40 - 150 U/L 06/05/2021 1:20 PM [facility] ALT 18 5 - 55 U/L 06/05/2021 1:20 PM [facility] AST 20 5 - 34 U/L 06/05/2021 1:20 PM [facility] Anion Gap 17 8 - 18 06/05/2021 1:20 PM [facility] BUN/Creatinine Ratio 26(H) 7 - 23 06/05/2021 1:20 PM [facility] Osmolality Calculated 293 270 - 300 mOsm/kg 06/05/2021 1:20 PM [facility] Albumin/Globulin Ratio 1.1 1.1 - 2.3 06/05/2021 1:20 PM [facility] eGFR by CKD-EPI >90 >=90 mL/min/1.7 3 m2 06/05/2021 1:20 PM [facility] Blood BLOOD SPECIMEN / Unknown Lab Venipuncture / Unknown 06/05/2021 12:44 PM CDT 06/05/2021 12:53 PM CDT Castillo Max MD LAB - CHEMISTRY OR DERABLES [facility] [address] [place] [address] [phone] * (ABNORMAL) CBC WITH DIFFERENTIAL (06/05/2021 12:44 PM CDT) WBC 8.7 3.5 - 10.5 10? 3 /uL 06/05/2021 1:16 PM [facility] RBC 4.86 3.80 - 5.20 10? 6 /uL 06/05/2021 1:16 PM [facility] Hemoglobin 15.6 12.0 - 15.6 g/dL 06/05/2021 1:16 PM [facility] Hematocrit 46.0(H) 35.0 - 45.0 % 06/05/2021 1:16 PM [facility] MCV 94.7 80.7 - 98.3 fL 06/05/2021 1:16 PM [facility] MCH 32.1 26.7 - 34.0 pg 06/05/2021 1:16 PM [facility] MCHC 33.9 30.8 - 35.9 g/dL 06/05/2021 1:16 PM [facility] Platelet Count 231 150 - 400 10? 3 /uL 06/05/2021 1:16 PM [facility] RDW-SD 43.8 36.0 - 50.0 fL 06/05/2021 1:16 PM [facility] RDW-CV 12.7 11.2 - 14.8 % 06/05/2021 1:16 PM [facility] MPV 8.8(L) 9.4 - 12.9 fL 06/05/2021 1:16 PM [facility] nRBC Absolute 0.00 0 10? 3 /uL 06/05/2021 1:16 PM [facility] nRBC Auto 0.0 0 /100 WBC 06/05/2021 1:16 PM [facility] Neutrophils % 65.8 35.0 - 70.0 % 06/05/2021 1:16 PM [facility] Lymphocytes % 22.8 20.0 - 43.0 % 06/05/2021 1:16 PM [facility] Monocytes % 6.4 5.0 - 13.0 % 06/05/2021 1:16 PM [facility] Eosinophils % 4.5 0.0 - 6.0 % 06/05/2021 1:16 PM [facility] Basophil % 0.3 0.0 - 2.0 % 06/05/2021 1:16 PM [facility] Neutrophils Absolute 5.7 1.6 - 7.0 10? 3 /uL 06/05/2021 1:16 PM [facility] Lymphocyte Absolute 2.0 1.1 - 3.9 10? 3 /uL 06/05/2021 1:16 PM [facility] Monocytes Absolute 0.56 0.26 - 1.07 10? 3 /uL 06/05/2021 1:16 PM [facility] Eosinophils Absolute 0.39 0.00 - 0.47 10? 3 /uL 06/05/2021 1:16 PM [facility] Basophils Absolute 0.03 0.00 - 0.08 10? 3 /uL 06/05/2021 1:16 PM CDT [facility] Immature Granulocytes % 0.2 0.0 - 1.0 % 06/05/2021 1:16 PM CDT [facility] Immature Granulocytes Absolute 0.02 06/05/2021 1:16 PM CDT [facility] Blood BLOOD SPECIMEN / Unknown Lab Venipuncture / Unknown 06/05/2021 12:44 PM CDT 06/05/2021 12:53 PM CDT Castillo Max MD LAB - HEMATOLOGY O RDERABLES Performing Organization Address City/State/[facility] Co de Phone Number [facility] [address] [place] [phone], [facility] [phone] documented in this encounter Visit Diagnoses Diagnosis Hodgkin lymphoma, unspecified Hodgkin lymphoma type, unspecified body region (HCC)- Primary documented in this encounter Care Teams Physics Instructor Relationship Specialty Start Date End Date Blake Lindsey MD [address] [place] [id number] PCP - General 05/20/16 documented as of this encounter
--- OUTSIDE RECORDS SUMMARY | 2024-07-29 17:21 | XMS_ITS | Encounter Summary ---
Author Organization [facility] Health Address [address] [facility] [place] [address] Care Team Providers Care Sap Bw Architect Name Role Phone Blake Lindsey MD Primary Care Provider Encounter Details Date Type Department Care Team (Latest Contact Info) Description 05/28/2021 1:17 PM CDT - 05/28/2021 2:29 PM CDT Hospital Encounter [facility] PFT [address] [place] [address] Don Manuel MD [address] [facility] [address] DIV OF PUL[place] [address] Discharge Disposition: Home or Self Care Social [...] bilateral nares 22 g 1 03/17/2021 NYSTOP [id number] UNIT/GM powder Apply 1 Dose to affected [...] fluticasone propionate (FLONASE) 50 MCG/ACT nasal spray [place] 2 sprays into each nostril once daily [...] 09/11/2020 07/15/2021 NARCAN 4 MG/0.1ML nasal spray [place] 4 mg into each nostril as needed [...] on filedocumented in this encounter Care Teams Sap Bw Architect Relationship Specialty Start Date End Date Blake Lindsey MD [address] [place] [address] PCP - General 05/20/16 documented as of this encounter
--- OUTSIDE RECORDS SUMMARY | 2024-07-29 17:21 | XMS_ITS | Encounter Summary ---
Author Organization [facility] Health Address [address] [place] [address] Care Team Providers Care Sales Support Assistant Name Role Phone Blake Lindsey MD Primary Care Provider [phone] Reason for Referral * Procedure (Routine) - Closed Specialty Diagnoses / Procedures Referred By Contac t Referred To Contact Sleep Center Diagnoses Central sleep apnea comorbid with prescribed opioid use Primary central sleep apnea Procedures PROC POLYSOMNOGRAPHY,THERAPEUT IC FULL NIGHT Reba Crews APNP-WATER AND [employer] SYSTEMS SUPERVISOR [address] [place] [address] [facility] [address] [place] [address] Referral ID Status Reason Start Date Expiration Date Visits Re quested Visits Authorized [id number] Closed 07/15/2021 07/15/2022 1 1 L RAIL CUTTER Reason for Visit * Reason Comments Obstructive Sleep Apnea Cpap Follow-up * Evaluate & Treat (Routine) - Closed Specialty Diagnoses / Procedures Referred By Contac t Referred To Contact Sleep Medicine / Sleep Center Diagnoses HECTOR (obstructive sleep apnea) Don Manuel MD [address] DIV OF PULMONARY/[place] [address] Reba Crews APNP-CNP [address] DIV OF PULMONARY/[place] [address] Referral ID Status Reason Start Date Expiration Date V isits Requested Visits Authorized [id number] Closed Specialty Services Required 03/18/2021 03/18/2022 1 1 Encounter Details Date Type Department Care Team (Late st Contact Info) Description 07/15/2021 9:00 AM FINAL RAIL CUTTER Office Visit [facility] [address] [place] [address] Don Manuel MD [address] DIV OF PULMONARY/[place] [address] Reba Crews APNP-CNP [address] DIV OF PULMONARY/[place] [address] Central sleep apnea comorbid with prescribed opioid use (Primary Dx); HECTOR (obstructive sleep apnea); Primary central sleep apnea ; Chronic fatigue; Chronic insomnia; Unrefreshed by sleep; Insufficient treatment with nasal CPAP; Obesity (BMI 30-39.9); Inadequate sleep hygiene; Restless legs syndrome (RLS); Nocturnal enuresis; Elevated MCV; Elevated hematocrit; Sleep related hypoxia Social History Tobacco Use Types Packs/Day Years [...] COVID-19? No / Unsure 07/01/2021 1:04 PM FINAL RAIL CUTTER documented as of this encounter Last Filed Vital Signs Vital Sign Reading Time Taken Comments Blood Pressure 99/68 07/15/2021 8:30 AM FINAL RAIL CUTTER Pulse 88 07/15/2021 8:30 AM FINAL RAIL CUTTER Temperature - - Respiratory Rate - - Oxygen Saturation - - Inhaled Oxygen Concentration - - Weight 83.7 kg (184 lb 8 oz) 07/15/2021 8:30 AM FINAL RAIL CUTTER Height 158.8 cm (5' 2.5 ) 07/15/2021 8:30 AM FINAL RAIL CUTTER Body Mass Index 33.21 07/15/2021 8:30 AM FINAL RAIL CUTTER documented in this encounter Functional Status Functional [...] this encounter Patient Instructions * Patient Instructions* Reba Crews APNP-WATER [employer] SYSTEMS SUPERVISOR - 07/15/2021 9:08 AM FINAL RAIL CUTTER Images from the original note were not included. Thank you for registering. For future reference, please save the following information so that we may be able to service you more effectively: Your confirmation code is: [id number] What to expect next: We regret that it may take some time to replace affected devices. The planned repair for the affected devices involves certain design changes, which in some markets may include review and/or authorization by the relevant regulatory agencies. We understand the impact of this issue and we sincerely regret this disruption. For additional questions: For more information and updates, please visit [facility]-update where we will be updating answers to frequently asked questions (FAQ) as more information becomes available or call in the [place] and [facility] or [phone] outside the [place]. Thank you. [facility], First Floor, [address] MRN[address] [place] [id number] [place] [address] Date of Sleep Study: 08/05/2021 Arrive by 08:30 pm you will leave by 11:00 am the following morning. PRE-TEST INSTRUCTIONS: 2-3 days prior to your test, sleep 8 hours nightly with regular sleep and wake times. Do not drink caffeine and do not nap after 11 am the day of your test. Follow any special instructions given by your doctor regarding medication changes and changes in smoking or alcohol consumption. Shower the day of your test, but DO NOT USE lotion on your skin or oily conditioners on your hair (these interfere with applying the electrodes). WHAT TO BRING the evening of the test: ? comfortable pajamas, shorts, sweats, etc. (two-piece clothing only please) ? toothbrush & toothpaste, comb, facial cleanser, wash cloth & towel (if removing electrodeglue residue while you're here) ? ALL MEDICATIONS ? Insurance card(s) and picture ID, if this is your first visit at the Sleep Center ? Day time nap patients need to bring lunch in a lunch box or bag marked with your name. We can store this in our office refrigerator for you. To help maintain cleanliness, we ask that you bring [id number] items such as a sandwich, apple, etc. Optional items to bring: ? your own pillow if you have a preference, ours are somewhat firm and flat ? a book to read or something to help pass the time while waiting ? a container with a lid if you want something to drink while you wait or when you wake up There is a TV, chair and a bathroom in your room. No food is provided and we ask that you do not have any open food in your room. For any changes to your Sleep test ON THE EVENING OF THE TEST; call to speak to or leave a message for the in-clinic evening Apprentice. If you are unable to come, kindly call us in advance at [facility]. Obtaining authorization for a sleep test is often very difficult and time consuming. Therefore, if you have any insurance changes, please notify our office staff immediately to prevent the cancelation of your test. We need 1-2 weeks or more to get an insurance approval. L RAIL CUTTER documented in this encounter Progress Notes * Reba Crews, MAYANK-WATER AND SE[employer]ER SYSTEMS SUPERVISOR - 07/15/2021 9:08 AM CST Images from the original note were not included. Lakeisha Alejandra 1970 07/15/2021 Patient location: Clinic Time allotted for visit by Tony 20 minutes Don Manuel MD [address] Of Pulmonary/[place] [address] Chief Complaint Patient presents with ??? Obstructive Sleep Apnea ??? Cpap Follow-up HPI: Patient has had a previous sleep evaluation. Diagnosed with CSA in about 2015 [facility] in [place], [place] on [address] 09/18/14 AHI 36.3, SpO2 80% (107 min< 90) Started on BPAP ASV epap 6-17, ps 0-15, max ipap 25-did ok on it until covid. BPAP does not seem towork since covid. Used FFM in past and currently has F30/jai view type mask with forehead bar from hospital. Chronic opioid use Was without machine a couple years ago b/o broken and replaced. Report date: 04/13/21-05/12/21 % total days used 6.7% % days used > 4 hours 0% Average hours/day 1 min 90/95% pressure 7.3/6, RR 14, MV 20.1 ASV epap 6-17, PS 0-15 Discussed recall-registered Report date: 11/30/20 to 02/01/21 % total days used 17.2% % days used > 4 hours 9.4% Average hours/day 3:51 Large leak Yes AHI: Yes 5.5, 90/95% pressure 19.5/12.5, RR 11.8, MV 7.1, PB 0.2, VS 21.6 Patterns of use: Patient usually applies mask at { C/o unrefreshing sleep even if sleeps 12-14 hours, chronically tired and fatigued. On seroquel 200 mg around 11 pm. Symptoms have been going on for several years and progressively getting worse. 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 [place] Sleep Scale - 7 /24 Fatigue Severity Scale - 54 Sleep Schedule: Works 9 am to 5 pm or 4-9 pm Bedtime Weekdays 1145 PM Weekends/Off days same NOT USING CPAP Fall asleep minutes/hours 30 minutes Number Times Awake/ Reason Total 0x, Bathroom 0x, Breathing problems 0x Back to Sleep Awake Time/Alarm without alarm noon to 2 pm, if alarm 8-10 AM Alarm Yes 3x/wk Rise Time Weekdays 5 minute(s) Weekends/off days 5 minute(s) Naps Yes sometimes for 2-3 hours SLEEP REVIEW OF SYSTEMS: Sleep hygiene: Pertinent positives: cool room, TV on all night, regular bed time within 1 hour, no exercise 3-4 hours before bedtime and no caffeine at least 3-4 hours before bed Pertinent negatives: dark room, quiet room, TV off, computer/laptop/tablet within 2 hours bedtime, cell phone within 2 hours of bedtime, regular wake time within 1 hour, no dinner 3-4 hours before bedtime, use of bed only for sleep/sex, no reading or screens, no fluids 3-4 hours before bed and no worrying in bed Sleep position: Lateral, cannot sleep supine b/o pain Feeling upon awakening: not refreshed, sleepy/tired and dryness of the mouth/throat Time most tired: Morning to early afternoon Snoring intensity: Pershing when outside room, door closed Mouth breather: Yes Nasal congestion: Yes Night sweats: Yes Use of fan at night: Yes x4 and window cracked in cool/cold weather Weight gain: No-but did gain weight when on oxygen that she had lost when ill Reported collar size: in. Parasomnias: Pertinent positives: sleep talking nightmares-occasionally 2x/mo=on med better sleep drunkenness Restless legs/limbs: Yes few times a month: Location: legs/calves Quality: urge to move Activity during onset: lying TIme of onset/aggravation:night Relieving factors: walking and rubbing/massaging Periodic limb movements: No Neuropathic pain: No Systemic ROS: Elements of the following systems were reviewed: cardiac, pulmonary, gastrointestinal, genito-urinary, neurological, eye, ear, nose, throat, musculoskeletal and endocrine Pertinent positives: Saw ENT recently who told her narrow nasal passage and large tonsils heartburn/acid reflux controlled with medication SOB with stairs nightmares wheezing-asthma cough night or early am nasal congestion sleeps with depends-may not wake to pee a few times a month wears glasses/reading dental issues full dentures-bone loss from cancer joint pain-knees, hips, fingers-needs LTKR, h/o spinal fusion muscle aches-leg cramps nights 3-4x/mo All other systems unremarkable. PAST MEDICAL HISTORY: Past Medical History: Diagnosis Date ??? Abnormal levels of other serum enzymes 12/22/2012 - trending down, near baseline - all other liver enzymes and bili wnl ??? Acromioclavicular joint arthritis 09/09/2016 ??? Acute respiratory failure due to COVID-19 01/2021 ??? Alkaline phosphatase elevation 12/19/2012 Overview: [...] opioids 07/18/2021 ??? Claustrophobia 07/15/2021 ??? Convulsions 01/02/2013 ??? COPD (chronic obstructive pulmonary disease) ??? COVID-19 01/2021 hospitalized February 07-, on [...] of penicillin allergy 08/31/2015 ??? Hodgkin's disease 01/16/2013 ??? Hodgkins lymphoma 2012 ??? Inadequate sleep hygiene 07/18/2021 ??? [...] major depressive disorder, without psychotic features 01/11/2019 ??? Sleep apnea ??? 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 Sleep talking 07/18/2021 ??? Suicidal ideation 07/15/2021 ??? Thrombocytopenia 02/16/2013 ??? TMJ (temporomandibular joint disorder) 07/11/2020 ??? Unrefreshed by sleep 07/18/2021 ??? Unspecified disorder of synovium and tendon, left shoulder 09/09/2016 ??? Wears glasses 07/18/2021 PSYCHIATRIC HISTORY: Patient reports: anxiety, depression and PTSD, claustrophobia, h/o suicidal thoughts Patient denies history of: panic disorder, attention-deficit hyperactivity disorder (ADHD), bipolardisorder, dementia, depression, obsessive/compulsive disorder, schizophrenia and suicide attempt PAST SURGICAL HISTORY: Past Surgical History: Procedure Laterality Date ??? Back Surgery 2014 fell and broke rods-another fusion ??? BIOPSY 2020 neck lymph ??? HX SPINAL FUSION 2012 ??? Knee Arthroscopy Left 2007 ??? Knee Arthroscopy Right 2008 ??? LUTHER TOOTH EXTRACTION 2012 all Denies history of: bariatric (obesity) surgery, cleft palate repair, nasal trauma or surgery and tonsillectomy/adenoidectomy ALLERGIES: Allergies Allergen Reactions ??? Amoxicillin Rash ??? Penicillins Rash ??? Codeine Other Passes out, Passes out ??? Epinephrine Other When injected in mouth for dental procedures, makes extremities go numb MEDICATIONS: Current Outpatient Medications: ??? albuterol (PROVENTIL;VENTOLIN) (2.5 MG/3ML) 0.083% nebulizer solution, INHALE 3 ML BY NEBULIZATION 3 TIMES DAILY Reasons: Disease Involving Spasms of the Bronchus (Patient not taking: Reported on07/15/2021), Disp: 1 vial, Rfl: 0 ??? atorvastatin (LIPITOR) 10 MG tablet, , Disp: , Rfl: ??? baclofen (LIORESAL) 20 MG tablet, , [...] fluticasone propionate (FLONASE) 50 MCG/ACT nasal spray, [place] 2 sprays into each nostril once daily, Disp: 16 g, Rfl: 5 ??? furosemide (LASIX) 20 MG tablet, Take 1 tablet by mouth once daily Reasons: Edema, Disp: 30 tablet, Rfl: 0 ??? gabapentin (NEURONTIN) 300 MG capsule, Take 300 mg by mouth 3 times daily, Disp: , Rfl: ??? lubiprostone (AMITIZA) 24 MCG capsule, Take 24 mcg by mouth 2 times daily with morning and evening meal, Disp: , Rfl: ??? meloxicam (MOBIC) 15 MG tablet, , Disp: , Rfl: ??? montelukast (SINGULAIR) 10 MG tablet, Take 10 mg by mouth once daily, Disp: , Rfl: ??? mupirocin (BACTROBAN) 2 % ointment, Apply to affected area 3 times daily To bilateral nares, Disp: 22 g, Rfl: 1 ??? NYSTOP 225285 UNIT/GM powder, Apply 1 Dose to affected [...] MG capsule, , Disp: , Rfl: ??? QUEtiapine (SEROQUEL) 100 MG tablet, Take 1 tablet by mouth at bedtime Reasons: Major Depressive Disorder (Patient taking differently: Take 200 mg by mouth at bedtime Reasons: Major Depressive Disorder), Disp: 30 tablet, Rfl: 0 ??? spironolactone (ALDACTONE) 25 MG tablet, Take 1 tablet by mouth once daily, Disp: , Rfl: 2 ??? SUMAtriptan (IMITREX) 50 MG tablet, Take 1 tablet by mouth once as needed for Migraine Maximum daily dose: 200mg/24 hours Reasons: Migraine Headache, Disp: 30 tablet, Rfl: 0 ??? traZODone (DESYREL) 50 MG tablet, Take 50 mg by mouth nightly as needed , Disp: , Rfl: ??? TRELEGY ELLIPTA 100-62.5-25 MCG/INH, Inhale 1 puff by mouth every 6 hours as needed, Disp: , Rfl: ??? XTAMPZA ER 9 MG capsule, Take 9 mg by mouth 2 times daily, Disp: , Rfl: IMMUNIZATIONS: Immunization History Administered Date(s) Administered ??? FLU VACCINE QUAD IIV4 SPLIT PF IM 04/05/2019 ??? FLU VACCINE TRI IIV3 SPLIT PF IM (FLUVIRIN) 04/18/2017 ??? MODERNA SARS-COV-2 COVID-19 VACCINE 0.5ML 03/31/2021, 04/30/2021 ??? PNEUMOCOCCAL PPSV23 10/30/2015 FAMILY HISTORY: Family History Problem Relation Name Age of Onset ??? Heart Disease Mother hannah ??? Diabetes Mother hannah ??? Hypertension Mother hannah ??? CAD (Coronary Artery Disease) Mother hannah ??? Cancer Father denise thyroid ??? Heart Disease Father denise ??? Hypertension Father denise ??? CAD (Coronary Artery Disease) Father denise ??? None Known Brother Denies history of: anxiety, depression, bedwetting (enuresis), narcolepsy, obstructive sleep apnea,periodic limb movements, sleep terrors, sleep walking and insomnia SOCIAL HISTORY: Occupational History: Occupation: [employer]. Shift work: No Social History Socioeconomic History ??? Marital status: Single Spouse name: x2 ??? Number of children: 2 ??? Years of education: 14 ??? Highest education level: Associate degree: occupational, technical, or vocational program Occupational History ??? Occupation: [employer] Tobacco Use ??? Smoking status: Former Smoker Packs/day: 1.00 Years: 14.00 Pack years: 14.00 Types: Cigarettes Start date: 1984 Quit date: 11/30/1997 Years since quittin.6 ??? Smokeless tobacco: Never Used Vaping Use ??? Vaping Use: Never used Substance and Sexual Activity ??? Alcohol use: Yes Alcohol/week: 0.0 - 1.0 standard drinks Comment: once a month ??? Drug use: Not Currently Types: Marijuana ??? Sexual activity: Yes Partners: Male Other Topics Concern ??? Not on file Social History Narrative AD in [place] Lives duplex with female roommate Pets 1 dog, 1 lizard Hobby crafting, gardening, walkening Social Determinants of Health Financial Resource Strain: Not on file Food Insecurity: Not on file Transportation Needs: Not on file Physical Activity: Not on file Stress: Not on file Social Connections: Not on file Intimate Partner Violence: Not on file Housing Stability: Not on file Coffee: per Tea: per Cola: per Energy drinks: per Exercise Schedule: Walking mostly at work-currently [address]18 steps for July PHYSICAL EXAMINATION: Visit Vitals Vitals: 07/15/21 0830 BP: 99/68 Pulse: 88 Weight: 184 lb 8 oz (83.7 kg) Height: 5' 2.5 (1.588 m) Body mass index is 33.21 kg/m??. General Appearance: alert, well appearing, and in no distress, oriented to person, place, and time and obese Face: no creases , no pressure sores and no redness Neck: increased thryomental angle Eyes: normal Ear: normal external and cerumen impaction Nasal: nasal congestion Oropharynx: small posterior pharynx Breath Sounds: Vesicular, no adventitious sounds Respiratory: normal effort Cardiac: regular rhythm, no murmurs, rubs or gallops Clubbing: No Cyanosis No Screening neurologic exam: Cranial nerves intact Motor: strength 5/5 all extremities, normal bulk/tone and coordination and gait normal: Yes REVIEW OF DATA: Component Latest Ref Rng & Units 06/05/2021 05/28/2021 WBC 3.5 - 10.5 10??3/uL 8.7 RBC 3.80 - 5.20 10??6/uL 4.86 Hemoglobin 12.0 - 15.6 g/dL 15.6 Hematocrit 35.0 - 45.0 % 46.0 (H) MCV 80.7 - 98.3 fL 94.7 MCH 26.7 - 34.0 pg 32.1 MCHC 30.8 - 35.9 g/dL 33.9 Platelet Count 150 - 400 10??3/uL 231 RDW-SD 36.0 - 50.0 fL 43.8 RDW 11.2 - 14.8 % 12.7 MPV 9.4 - 12.9 fL 8.8 (L) nRBC Absolute 0 10??3/uL 0.00 nRBC Auto 0 /100 WBC 0.0 Neutrophils % 35.0 - 70.0 % 65.8 Lymphocytes % 20.0 - 43.0 % 22.8 Monocytes % 5.0 - 13.0 % 6.4 Eosinophils % 0.0 - 6.0 % 4.5 Basophils % 0.0 - 2.0 % 0.3 Neutrophils Absolute 1.6 - 7.0 10??3/uL 5.7 Lymphocyte Absolute 1.1 - 3.9 10??3/uL 2.0 Monocytes Absolute 0.26 - 1.07 10??3/uL 0.56 Eosinophils Absolute 0.00 - 0.47 10??3/uL 0.39 Basophils Absolute 0.00 - 0.08 10??3/uL 0.03 Immature Granulocytes % 0.0 - 1.0 % 0.2 Immature Granulocytes Absolute 0.02 BUN 7 - 26 mg/dL 19 Creatinine 0.56 - 0.96 mg/dL 0.72 Sodium 136 - 145 mmol/L 140 Potassium 3.5 - 4.5 mmol/L 4.3 Chloride 98 - 107 mmol/L 105 CO2 22 - 29 mmol/L 22 Glucose 70 - 115 mg/dL 103 Calcium 8.4 - 10.2 mg/dL 10.4 (H) Protein Total 6.0 - 8.3 g/dL 8.0 Albumin 3.4 - 5.0 g/dL 4.2 Bilirubin Total 0.2 - 1.2 mg/dL 0.6 Alkaline Phosphatase 40 - 150 U/L 90 ALT 5 - 55 U/L 18 AST 5 - 34 U/L 20 Anion Gap 8 - 18 17 BUN/Creatinine Ratio 7 - 23 26 (H) Osmolality Calculated 270 - 300 mOsm/kg 293 Albumin/Globulin Ratio 1.1 - 2.3 1.1 eGFR >=90 mL/min/1.73 m2 >90 pH Arterial 7.35 - 7.45 pH 7.43 pO2 Arterial 80 - 100 mmHg 86 pCO2 Arterial 35 - 45 mmHg 39 BE Arterial -2.0 - 2.0 mmol/L 1.6 Oxyhemoglobin Arterial % 95.3 Deoxyhemoglobin % % 1.8 O2 Content Arterial Interpret within clinical context mg/dL 19.5 Hemoglobin by COOX 12.0 - 15.6 g/dL 14.5 O2 Saturation Arterial 90 - 100 % 98 HCO3 Arterial 20 - 30 mmol/l 26 Methemoglobin 0.0 - 2.0 % 1.2 Carboxyhemoglobin 0.0 - 2.0 % 1.7 Component Latest Ref Rng & Units 03/28/2021 IgE Total <=214 kU/L 4 Allergen [place] Elder <=0.34 kU/L <0.10 Allergen Alternaria alternata <=0.34 kU/L <0.10 Allergen [place] Maple <=0.34 kU/L <0.10 Allergen Cat Dander <=0.34 kU/L <0.10 Allergen [place] <=0.34 kU/L <0.10 Allergen [place] Tree <=0.34 kU/L <0.10 Allergen Rough Pigweed <=0.34 kU/L <0.10 Allergen [place]ran Thistle <=0.34 kU/L <0.10 Allergen [place] Grass <=0.34 kU/L <0.10 Allergen Hormodendrum <=0.34 kU/L <0.10 Allergen Elm <=0.34 kU/L <0.10 Allergen [place] <=0.34 kU/L <0.10 Allergen Aspergillus fumigatus IgE <=0.34 kU/L <0.10 Allergen Dermatophagoides pteronyssinus <=0.34 kU/L <0.10 Allergen Dermatophagoides farinae <=0.34 kU/L <0.10 Allergen [place] Grass <=0.34 kU/L <0.10 Allergen White Grover <=0.34 kU/L <0.10 Allergen P. Notatum <=0.34 kU/L <0.10 Allergen Common Ragweed <=0.34 kU/L <0.10 Allergen Cockroach Filipino <=0.34 kU/L <0.10 Allergen [place] Tree <=0.34 kU/L <0.10 Allergen [place] Tree <=0.34 kU/L <0.10 Allergen Pecan Tree <=0.34 kU/L <0.10 Allergen Mouse Epithelium IgE <=0.34 kU/L <0.10 Allergen Mucor racemosus <=0.34 kU/L <0.10 Allergen White [place] Tree IgE <=0.34 kU/L <0.10 Allergen Dog Dander <=0.34 kU/L <0.10 WBC 3.5 - 10.5 10??3/uL 7.7 RBC 3.80 - 5.20 10??6/uL 3.85 Hemoglobin 12.0 - 15.6 g/dL 12.3 Hematocrit 35.0 - 45.0 % 38.4 MCV 80.7 - 98.3 fL 99.7 (H) MCH 26.7 - 34.0 pg 31.9 MCHC 30.8 - 35.9 g/dL 32.0 Platelet Count 150 - 400 10??3/uL 186 RDW-SD 36.0 - 50.0 fL 54.1 (H) RDW 11.2 - 14.8 % 14.7 MPV 9.4 - 12.9 fL 9.9 nRBC Absolute 0 10??3/uL 0.00 nRBC Auto 0 /100 WBC 0.0 Neutrophils % 35.0 - 70.0 % 50.8 Lymphocytes % 20.0 - 43.0 % 34.2 Monocytes % 5.0 - 13.0 % 8.0 Eosinophils % 0.0 - 6.0 % 5.4 Basophils % 0.0 - 2.0 % 0.8 Neutrophils Absolute 1.6 - 7.0 10??3/uL 3.9 Lymphocyte Absolute 1.1 - 3.9 10??3/uL 2.6 Monocytes Absolute 0.26 - 1.07 10??3/uL 0.62 Eosinophils Absolute 0.00 - 0.47 10??3/uL 0.42 Basophils Absolute 0.00 - 0.08 10??3/uL 0.06 Immature Granulocytes % 0.0 - 1.0 % 0.8 Immature Granulocytes Absolute 0.06 eGFR >=90 mL/min/1.73 m2 >60 Creatinine POCT 0.30 - 1.30 mg/dL 0.75 Component Latest Ref Rng & Units 05/28/2021 pH Arterial 7.35 - 7.45 pH 7.43 pO2 Arterial 80 - 100 mmHg 86 pCO2 Arterial 35 - 45 mmHg 39 BE Arterial -2.0 - 2.0 mmol/L 1.6 Oxyhemoglobin Arterial % 95.3 Deoxyhemoglobin % % 1.8 O2 Content Arterial Interpret within clinical context mg/dL 19.5 Hemoglobin by COOX 12.0 - 15.6 g/dL 14.5 O2 Saturation Arterial 90 - 100 % 98 HCO3 Arterial 20 - 30 mmol/l 26 Methemoglobin 0.0 - 2.0 % 1.2 Carboxyhemoglobin 0.0 - 2.0 % 1.7 07/01/21 CT SOFT TISSUE NECK WITH INTRAVENOUS CONTRAST. 1. Given the technical differences, the peripherally enhancing centrally hypoattenuating intraparotid mass on the left side is stable, but the more laterally and inferiorly located one with homogeneously hypoattenuating appearance has enlarged in the interval. The previous PET examination demonstrat ed FDG uptake in the former and not the latter intraparotid mass. Follow-up is recommended. 2. Negative for lymphadenopathy or other significant interval changes. 05/28/[address] Peripheral, posterior predominant fine reticular opacities throughout the bilateral upper and lowerlobes with subpleural sparing, 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 Interval resolution of groundglass opacities may reflect resolution of acute inflammatory component. ?? 03/28/21 STRESS ECHO Left ventricular systolic function is normal with an ejection fraction by Biplane Method of Discs of 73 %. Left ventricular segmental wall motion is normal. The left ventricular diastolic function is normal, consistent with normal left ventricle filling pressures. Normal right ventricular systolic function. Normal augmentation of all wall segments without evidence of ischemia with pharmacologic stress. With pharmacologic stress, improvement in the ejection fraction. Stress EKG is negative for ischemic changes. No chest pain noted. Pharmacologic stress echocardiogram is normal. SPIROMETRY: FVC is normal. ?? FEV1 is normal. ?? FEV1/FVC ratio is normal. There is no significant response to bronchodilator therapy. This does not preclude the use of bronchodilator response if clinically indicated. The inspection of the patient's flow-volume loops shows normal configuration of the inspiratory andexpiratory limbs. LUNG VOLUMES: Lung volumes by body plethysmography are within normal limits. DLCO: Diffusing capacity adjusted for Hb and COHb is within normal limits. ARTERIAL BLOOD GAS ANALYSIS: ABG drawn on RA revealed normal oxygenation and acid-base balance. IMPRESSION: 1. Normal Pulmonary Function Test. 2. Compared to study from 08/16/2017, FEV1 is increased by 260 ml and TLC is decreased by 400 ml. ASSESSMENT: Obstructive sleep apnea non compliance Restless legs syndrome Chronic insomnia Inadequate sleep hygiene Obesity BMI 30-39.9 Nocturia Chronic fatigue Central sleep apnea r/t opioid use Unrefreshed by sleep Nocturnal Enuresis Elevated MCV Elevated HCT Sleep related hypoxia Nightmares, Sleep drunkenness and Sleep talking PLAN: Full night polysomnograpy: Therapeutic, Bilevel PAP/ASV plus minus O2 CONSIDER FOLATE, B12, MCV Healthy diet and exercise Good sleep hygiene Stay home as much as feasible and practice COVID-19 precautions (ie, physical distancing, wearing amask when outdoors, handwashing, etc.). RTC: Post PSG Visit lasted for 75 minutes. Time includes pre-chart, post charting, and visit time. More than 50% of visit was direct [id number], including counseling and coordination of care. Reba Crews, Ph.D.c, D.N.P, A.N.P.-B.C. Adult Nurse Practitioner control room technician Director, [facility] These notes have been electronically signed by Reba Crews APN as the Authorizing and/or the Encounter Provider in the [facility]. 07/15/2021 Coding Rationale New or est? New Patient Highest problem complexity: 1 or more chronic illnesses with exacerbation, progression, or side effects of treatment Data review: Review of result(s): 3 or more unique source(s) Ordering of test(s): 1 unique test(s) ordered Independent interpretation of test(s) - I independently interpreted the following test(s): cpap epworth fatigue Suggested code: 96331 L RAIL CUTTER documented in this encounter Plan of Treatment Not on file documented as of this encounter Results * UT POLYSOM 6/>YRS CPAP 4/> PARM (08/06/2021 10:18 AM FINAL RAIL CUTTER) Narrative Lowell Pop MD - 08/06/2021 10:18 AM FINAL RAIL CUTTER Lowell Pop MD ? 08/06/2021 10:19 AM [facility] Accredited by the [place] [employer] [facility], First Floor [address] [place] [address] Telephone : [phone] ? Medical Records Patient Name: Lakeisha Alejandra : 1970 Date of Study: 08/05/2021 Referring Physician: Blake Lindsey MD Type of Montage: Respiratory Scoring Montage: ??[facility] FULL NIGHT THERAPEUTIC POLYSOMNOGRAM INTERPRETATION Procedure: The polysomnogram was performed with a chief technologist in attendance. ??Central, occipital, and temporal [...] History: Ms. Lakeisha Alejandra, a 50 year [id number] female, was referred to the Sleep Disorders [...] ?fluticasone propionate (FLONASE) 50 MCG/ACT nasal spray, [place] 2 sprays into each nostril once daily, [...] nares, Disp: 22 g, Rfl: 1 ?NYSTOP 183050 UNIT/GM powder, Apply 1 Dose to affected [...] shunt, diffusion abnormality, etc.). Lowell Pop MD, [facility], [facility], [facility] Rubber Heel And Sole Press Tender, [facility] Professor of Internal Medicine Adjunct Ui Ux Engineer of Neurology Division of Pulmonary, Critical Care, and Sleep Medicine [facility] This note was electronically signed on 08/06/2021. Reba Crews APNP-[employer] SUPERVISOR PROCEDUR E/MINOR SURGICAL ORDERABLES documented in this encounter Visit Diagnoses Diagnosis Central sleep apnea comorbid with prescribed opioid use- Primary HECTOR (obstructive sleep apnea) Obstructive sleep apnea (adult) (pediatric) Primary central sleep apnea Primary central sleep apnea Chronic fatigue Other malaise and fatigue Chronic insomnia Insomnia, unspecified Unrefreshed by sleep Other sleep disturbances Insufficient treatment with nasal CPAP Other respiratory complications Obesity (BMI 30-39.9) Obesity, unspecified Inadequate sleep hygiene Other specific disorder of sleep of nonorganic origin Restless legs syndrome (RLS) Nocturnal enuresis Elevated MCV Other abnormality of red blood cells Elevated hematocrit Other hemoglobinopathies Sleep related hypoxia Idiopathic sleep related nonobstructive alveolar hypoventilation Central sleep apnea comorbid with prescribed opioid use Primary central sleep apnea Primary central sleep apnea documented in this encounter Care Teams Sales Support Assistant Relationship Specialty Start Date End Date Blake Lindsey MD [address] [place] [address] PCP - General 05/20/16 documented as of this encounter
--- OUTSIDE RECORDS SUMMARY | 2024-07-29 17:21 | XMS_ITS | Encounter Summary ---
Author Organization [facility] Health Address [address] [place] [address] Care Team Providers Care Consulting Engineer Name Role Phone Blake Lindsey MD Primary Care Provider [phone] Encounter Details Date Type Department Care Team (Late st Contact Info) Description 06/06/2021 Orders Only [facility] [address] Bryanna Gonzalez RN Ear pain, right ; Ear discharge of left ear Social History Tobacco Use Types Packs/Day Years [...] as of this encounter Visit Diagnoses Diagnosis Ear pain, right- Primary Ear discharge of left ear documented in this encounter Care Teams Consulting Engineer Relationship Specialty Start Date End Date Blake Lindsey MD [address] [place] [address] PCP - General 05/20/16 documented as of this encounter
--- OUTSIDE RECORDS SUMMARY | 2024-07-29 17:21 | XMS_ITS | Encounter Summary ---
Author Organization [facility] Health Address [address] [place] [address] Care Team Providers Care Slitter Service And Setter Name Role Phone Blake Lindsey MD Primary Care Provider [phone] Reason for Visit * Reason Onset Date Comments Results 04/08/2021 Encounter Details Date Type Department Care Team (Late st Contact Info) Description 04/08/2021 Telephone [facility] [address], [address] [place] [address] Luz Meyer MD [address] [place], [place] [id number] Results Social History Tobacco Use Types Packs/Day [...] Telephone Encounter - Luz Meyer MD - 04/08/2021 4:12 PM CDT Called the patient with results of labs. DSE neg Eos elevated IgE normal Allergen panel 6MWT and O2 desat reviewed. PFT was not done. CT PE without PE but showed fibrotic changes consistent with NSIP. Wondering about amount of oxygen required. Has pulse ox at home. When takes off oxygen at home, O2 drops to 87-88% on room air. Counseled about use of home oxygen and pulse ox. Has appt next Will plan for prednisone 40mg qd [id number] then taper HRCT in 3 months to reevaluate changes documented in this encounter Plan of Treatment Not on file documented as of this encounter Visit Diagnoses Diagnosis NSIP (nonspecific interstitial pneumonia) (HCC)- Primary Other specified alveolar and parietoalveolar pneumonopathies COVID-19 documented in this encounter Care Teams Slitter Service And Setter Relationship Specialty Start Date End Date Blake Lindsey MD [address] [place] [address] PCP - General 05/20/16 documented as of this encounter
--- OUTSIDE RECORDS SUMMARY | 2024-07-29 17:21 | XMS_ITS | Encounter Summary ---
Author Organization [facility] Health Address [address] [place] [address] Care Team Providers Care Data Security Administrator Name Role Phone Blake Lindsey MD Primary Care Provider [phone] Encounter Details Date Type Department Care Team (Late st Contact Info) Description 03/18/2021 Orders Only [facility] Pulmonary, Critical Care and Sleep Medicine [address] [place] [id number] Luz Meyer MD [address] [place] [address] Chest pain, unspecified type; Hypoxia; Lower extremity edema Social History Tobacco Use Types Packs/Day Years [...] Procedure Name Priority Date/Time Associated Diagnosis Comments ECHO STRESS W DOBUTAMINE Routine 03/28/2021 10:12 AM CDT Chest pain, unspecified type Hypoxia Lower extremity edema documented in this encounter Results * ECHO STRESS W DOBUTAMINE (03/28/2021 10:12 AM CDT) Anatomical Region Laterality Modality Chest Echo 03/28/2021 9:07 AM CDT Narrative Procedure Note Zack Gil MD - 03/28/2021 Don Manuel MD ECHOCARDIOGRAPHY RAD IANT documented in this encounter Visit Diagnoses Diagnosis Chest pain, unspecified type Hypoxia Hypoxemia Lower extremity edema Edema Chest pain, unspecified type Hypoxia Hypoxemia Lower extremity edema Edema documented in this encounter Care Teams Data Security Administrator Relationship Specialty Start Date End Date Blake Lindsey MD [address] [place] [address] PCP - General 05/20/16 documented as of this encounter
--- OUTSIDE RECORDS SUMMARY | 2024-07-29 17:21 | XMS_ITS | Encounter Summary ---
Author Organization [facility] Health Address [address] [place] [address] Care Team Providers Care Uranium Processing Supervisor Name Role Phone Blake Lindsey MD Primary Care Provider [phone] Encounter Details Date Type Department Care Team (Latest Contact Info) Description 03/28/2021 7:06 AM CDT - 03/28/2021 7:57 AM CDT Hospital Encounter [facility] LAB OP DRAW STATION [address] [place] [address] Don Manuel MD [address] [facility] 2L DIV OF PULMONARY/[place] [address] Discharge Disposition: Home or Self Care Social [...] bilateral nares 22 g 1 03/17/2021 NYSTOP 430018 UNIT/GM powder Apply 1 Dose to affected [...] fluticasone propionate (FLONASE) 50 MCG/ACT nasal spray [place] 2 sprays into each nostril once daily [...] 09/11/2020 07/15/2021 NARCAN 4 MG/0.1ML nasal spray [place] 4 mg into each nostril as needed [...] Procedure Name Priority Date/Time Associated Diagnosis Comments IMMUNOSCORE IGE INTERP Routine 03/28/2021 7:29 AM CDT Hypoxia Uncomplicated asthma, unspecified asthma severity, unspecified whether persistent (HCC) Chronic obstructive pulmonary disease, unspecified COPD type (HCC) ALLERGEN RESPIRATORY PNL REGION 8 ([place]) Routine 03/28/2021 7:29 AM CDT Hypoxia Uncomplicated asthma, unspecified asthma severity, unspecified whether persistent (HCC) Chronic obstructive pulmonary disease, unspecified COPD type (HCC) CBC W AUTO DIFFERENTIAL Routine 03/28/2021 7:29 AM CDT Hypoxia Uncomplicated asthma, unspecified asthma severity, unspecified whether persistent (HCC) documented in this encounter Results * IMMUNOSCORE IGE INTERP (03/28/2021 7:29 AM CDT) Immunocap Score See Note 3:26 PM CDT [employer] ([facility]) Comment: REFERENCE INTERVAL: Allergen, Interpretation Less than [...] clinical allergy or even anaphylaxis. Performed By: [employer] [address] [place] [address] Video Game Script Writer: Karol Bowen MD Blood BLOOD SPECIMEN / Unknown Lab Venipuncture / Unknown 03/28/2021 7:29 AM CDT 03/28/2021 9:40 AM CDT Don Manuel MD LAB - SEROLOGY ORDER [facility] [employer] ([facility]) [address] [place] [address], [place] * (ABNORMAL) CBC WITH DIFFERENTIAL (03/28/2021 7:29 AM CDT) [facility] WBC 7.7 3.5 - 10.5 10? 3 /uL 03/28/2021 10:02 AM CDT [facility] LABORATORY [facility] RBC 3.85 3.80 - 5.20 10? 6 /uL 03/28/2021 10:02 AM [facility] Hemoglobin 12.3 12.0 - 15.6 g/dL 03/28/2021 10:02 AM [facility] Hematocrit 38.4 35.0 - 45.0 % 03/28/2021 10:02 AM [facility] MCV 99.7(H) 80.7 - 98.3 fL 03/28/2021 10:02 AM [facility] MCH 31.9 26.7 - 34.0 pg 03/28/2021 10:02 AM [facility] MCHC 32.0 30.8 - 35.9 g/dL 03/28/2021 10:02 AM [facility] Platelet Count 186 150 - 400 10? 3 /uL 03/28/2021 10:02 AM [facility] RDW-SD 54.1(H) 36.0 - 50.0 fL 03/28/2021 10:02 AM [facility] RDW-CV 14.7 11.2 - 14.8 % 03/28/2021 10:02 AM [facility] MPV 9.9 9.4 - 12.9 fL 03/28/2021 10:02 AM [facility] nRBC Absolute 0.00 0 10? 3 /uL 03/28/2021 10:02 AM [facility] nRBC Auto 0.0 0 /100 WBC 03/28/2021 10:02 AM [facility] Neutrophils % 50.8 35.0 - 70.0 % 03/28/2021 10:02 AM [facility] Lymphocytes % 34.2 20.0 - 43.0 % 03/28/2021 10:02 AM [facility] Monocytes % 8.0 5.0 - 13.0 % 03/28/2021 10:02 AM [facility] Eosinophils % 5.4 0.0 - 6.0 % 03/28/2021 10:02 AM [facility] Basophil % 0.8 0.0 - 2.0 % 03/28/2021 10:02 AM [facility] Neutrophils Absolute 3.9 1.6 - 7.0 10? 3 /uL 03/28/2021 10:02 AM [facility] Lymphocyte Absolute 2.6 1.1 - 3.9 10? 3 /uL 03/28/2021 10:02 AM CDT [facility] Monocytes Absolute 0.62 0.26 - 1.07 10? 3 /uL 03/28/2021 10:02 AM CDT [facility] Eosinophils Absolute 0.42 0.00 - 0.47 10? 3 /uL 03/28/2021 10:02 AM CDT [facility] Basophils Absolute 0.06 0.00 - 0.08 10? 3 /uL 03/28/2021 10:02 AM CDT [facility] LABORATORY [facility] Immature Granulocytes % 0.8 0.0 - 1.0 % 03/28/2021 10:02 AM T [facility] Immature Granulocytes Absolute 0.06 03/28/2021 10:02 AM [facility] Blood BLOOD SPECIMEN / Unknown Lab Venipuncture / Unknown 03/28/2021 7:29 AM CDT 03/28/2021 9:52 AM CDT Don Manuel MD LAB - HEMATOLOGY ORD ERABLES [facility] [address] [place] [address], [place] [phone] * ALLERGEN RESPIRATORY PROF ([place]) IGE (03/28/2021 7:29 AM CDT) IgE Total 4 <=214 kU/L 03/30/2021 3:18 PM CDT [facility]) Comment: REFERENCE INTERVAL: Immunoglobulin E, Serum Access complete set of age- and/or gender-specific reference intervals for this test in the [facility] Test Directory ([employer]). Allergen Meier Elder <0.10 <=0.34 kU/L 03/30/2021 3:18 PM CDT [facility] ([facility]) Allergen Alternaria alternata <0.10 <=0.34 kU/L 03/30/2021 3:18 PM CDT [facility]) Allergen [place] <0.10 <=0.34 kU/L 03/30/2021 3:18 PM CDT [facility] ([facility]) Allergen Cat Dander <0.10 <=0.34 kU/L 03/30/2021 3:18 PM CDT [facility] ([facility]) Allergen [place] <0.10 <=0.34 kU/L 03/30/2021 3:18 PM CDT [facility] ([facility]) Allergen [place] Tree <0.10 <=0.34 kU/L 03/30/2021 3:18 PM CDT [facility] ([facility]) Allergen Rough Pigweed <0.10 <=0.34 kU/L 03/30/2021 3:18 PM CDT [facility] ([facility]) Allergen [place] Citizen Thistle <0.10 <=0.34 kU/L 03/30/2021 3:18 PM CDT [facility] ([facility]) Allergen Tono Grass <0.10 <=0.34 kU/L 03/30/2021 3:18 PM CDT [facility] ([facility]) Allergen Hormodendrum <0.10 <=0.34 kU/L 03/30/2021 3:18 PM CDT [facility] ([facility]) Allergen Elm <0.10 <=0.34 kU/L 03/30/2021 3:18 PM CDT [facility] ([facility]) Allergen [place] <0.10 <=0.34 kU/L 03/30/2021 3:18 PM CDT [facility] ([facility]) Allergen A fumigatus IgE <0.10 <=0.34 kU/L 03/30/2021 3:18 PM CDT [facility] ([facility]) Allergen Dermatophagoides pteronyssinus <0.10 <=0.34 kU/L 03/30/2021 3:18 PM CDT [facility] ([facility]) Allergen Dermatophagoides farinae <0.10 <=0.34 kU/L 03/30/2021 3:18 PM CDT [facility] ([facility]) Allergen [place] Grass <0.10 <=0.34 kU/L 03/30/2021 3:18 PM CDT [facility] ([facility]) Allergen White [place] <0.10 <=0.34 kU/L 03/30/2021 3:18 PM CDT [facility] ([facility]) Allergen P. Notatum <0.10 <=0.34 kU/L 03/30/2021 3:18 PM CDT [facility] ([facility]) Allergen Common Ragweed <0.10 <=0.34 kU/L 03/30/2021 3:18 PM CDT [facility] ([facility]) Allergen Cockroach Cook Islander <0.10 <=0.34 kU/L 03/30/2021 3:18 PM CDT [facility] ([facility]) Allergen Urania Tree <0.10 <=0.34 kU/L 03/30/2021 3:18 PM CDT [facility] ([facility]) Allergen [place] Tree <0.10 <=0.34 kU/L 03/30/2021 3:18 PM CDT [facility] ([facility]) Allergen Pecan Tree <0.10 <=0.34 kU/L 03/30/2021 3:18 PM CDT [facility] ([facility]) Allergen Mouse Epithelium IgE <0.10 <=0.34 kU/L 03/30/2021 3:18 PM CDT [facility] ([facility]) Allergen Mucor racemosus <0.10 <=0.34 kU/L 03/30/2021 3:18 PM CDT [facility] ([facility]) Allergen [place] Tree IgE <0.10 <=0.34 kU/L 03/30/2021 3:18 PM CDT [facility] ([facility]) Allergen Dog Dander <0.10 <=0.34 kU/L 03/30/2021 3:18 PM CDT [facility] ([facility]) Comment: Performed By: [employer] [address] [place] [address] Video Game Script Writer: Karol Bowen MD Blood BLOOD SPECIMEN / Unknown Lab Venipuncture / Unknown 03/28/2021 7:29 AM CDT 03/28/2021 9:40 AM CDT Don Manuel MD LAB - CHEMISTRY [facility]STOPHER DE LA [facility] Organization Address City/State/ZIP Co de Phone Number [facility] [employer] [facility]) [address] [place] [address] documented in this encounter Visit Diagnoses Diagnosis Hypoxia Hypoxemia Uncomplicated asthma, unspecified asthma severity, unspecified whether persistent (HCC) Chronic obstructive pulmonary disease, unspecified COPD type (HCC) documented in this encounter Care Teams Uranium Processing Supervisor Relationship Specialty Start Date End Date Blake Lindsey MD [address] [place] [id number] PCP - General 05/20/16 documented as of this encounter
--- OUTSIDE RECORDS SUMMARY | 2024-07-29 17:21 | XMS_ITS | Encounter Summary ---
Author Organization [facility] Health Address [address] [place] [address] Care Team Providers Care Buffer Chrome Name Role Phone Blake Lindsey MD Primary Care Provider Reason for Referral * Procedure (Routine) - Closed Specialty Diagnoses / Procedures Referred By Contac t Referred To Contact Pulmonary Disease Diagnoses Hypoxia Procedures COMPLETE PFT W/WO BRONCHODILATOR Don Manuel MD [address] [facility] 2L DIV OF PULMONARY/[place] [address] [facility] [address] [place] [address] Referral ID Status Reason Start Date Expiration Date Visits Re quested Visits Authorized [id number] Closed 03/18/2021 03/18/2022 1 1 Reason for Visit * Procedure (Routine) - Closed Specialty Diagnoses / Procedures Referred By Contac t Referred To Contact Pulmonary Disease Diagnoses Hypoxia Procedures COMPLETE PFT W/WO BRONCHODILATOR Don Manuel MD [address] [facility] 2L DIV OF PULMONARY/[place] [address] [facility] [address] [place] [address] Referral ID Status Reason Start Date Expiration Date Visits Re quested Visits Authorized [id number] Closed 03/18/2021 03/18/2022 1 1 Encounter Details Date Type Department Care Team (Latest Contact Info) Description 05/28/2021 1:00 PM CDT - 05/28/2021 1:16 PM CDT Hospital Encounter [facility] PFT [address] [place] [phone] Don Manuel MD [address] [facility] 2L DIV OF PULMONARY/[place] [address] Discharge Disposition: Home or Self Care Social [...] bilateral nares 22 g 1 03/17/2021 NYSTOP [id number] UNIT/GM powder Apply 1 Dose to affected [...] daily 2 03/09/2019 SUMAtriptan (IMITREX) 50 MG tabletIndications:Jtain litzy Take 1 tablet by mouth once as needed for Migraine Maximum daily dose: 200mg/24 hours Reasons: Migraine Headache 30 tablet 01/12/2019 traZODone (DESYREL) 50 MG tablet Take 1 (one) tablet by mouth nightly as needed for Insomnia 06/26/2020 fluticasone propionate (FLONASE) 50 MCG/ACT nasal spray [place] 2 sprays into each nostril once daily [...] 09/11/2020 07/15/2021 NARCAN 4 MG/0.1ML nasal spray [place] 4 mg into each nostril as needed [...] 06/26/2020 08/05/2022 documented as of this encounter Procedure Notes * Kris Trimble MD - 05/28/2021 1:16 PM CDTAssociated Order(s): COMPLETE PFT W/WO BRONCHODILATOR Images from the original note were not included. * Kris Trimble MD - 05/28/2021 1:16 PM CDTAssociated Order(s): PFT OXYGEN DESATURATION STUDY Images from the original note were not included. documented in this encounter Plan of Treatment Not on file documented as of this encounter Procedures Procedure Name Priority Date/Time Associated Diagnosis Comments BLOOD GASES ART+COOX POCT Routine 05/28/2021 1:52 PM CDT BLOOD GAS COOX ART POC NOTIFICATION Routine 05/28/2021 1:35 PM CDT Chronic obstructive pulmonary disease, unspecified COPD type (HCC) PFT OXYGEN DESATURATION STUDY Routine 05/28/2021 1:16 PM CDT Chronic obstructive pulmonary disease, unspecified COPD type (HCC) Chronic respiratory failure with hypoxia (HCC) COMPLETE PFT W/WO BRONCHODILATOR Routine 05/28/2021 1:16 PM CDT Hypoxia documented in this encounter Results * BLOOD GASES ART+COOX POCT (05/28/2021 1:52 PM CDT) pH Arterial 7.43 7.35 - 7.45 pH 05/28/2021 1:52 PM CDT [facility] pO2 Arterial 86 80 - 100 mmHg 05/28/2021 1:52 PM CDT [facility] pCO2 Arterial 39 35 - 45 mmHg 1:52 PM CDT [facility] BE Arterial 1.6 -2.0 - 2.0 mmol/L 05/28/2021 1:52 PM [facility] Oxyhemoglobin Arterial 95.3 % 05/28/2021 1:52 PM [facility] Dexoyhemoglobin (HHB) % 1.8 % 05/28/2021 1:52 PM [facility] O2 Content Arterial 19.5 Interpret within clinical context mg/dL 05/28/2021 1:52 PM [facility] Hemoglobin by COOX 14.5 12.0 - 15.6 g/dL 05/28/2021 1:52 PM [facility] O2 Saturation Arterial 98 90 - 100 % 05/28/2021 1:52 PM [facility] HCO3 Arterial 26 20 - 30 mmol/l 05/28/2021 1:52 PM [facility] Methemoglobin 1.2 0.0 - 2.0 % 05/28/2021 1:52 PM [facility] Carboxyhemoglobin 1.7 0.0 - 2.0 % 2020 1:52 PM [facility] Comment:Carboxyhemoglobin No rmal Concentration: Non-smokers: 0-2%; Smokers: 0- 9%; Toxic: >20% Blood, arterial ARTERIAL BLOOD SPECIMEN / Unknown 05/28/2021 1:52 PM CDT 05/28/2021 1:52 PM CDT Don Manuel MD LAB - POINT OF CARE ORDERABLES [facility] [address] [address], [facility] [phone] * BLOOD GAS COOX ART POC NOTIFICATION (05/28/2021 1:35 PM CDT) Comment Notification Label Only - See Separate Report 05/28/2021 3:00 PM CDT [facility] Other MISCELLANEOUS SAMPLES / Unknown Collection / Unknown 05/28/2021 1:35 PM CDT 05/28/2021 1:35 PM CDT Don Manuel MD LAB - BLOOD GASES OR DERABLES [facility] PUL[facility] * PFT OXYGEN DESATURATION STUDY (05/28/2021 1:16 PM CDT) Impressions Rosendo Martinez MD - 05/28/2021 1:16 PM CDT [facility] DEPARTMENT OF PULMONARY, CRITICAL CARE, AND SLEEP MEDICINE OXYGEN TITRATION STUDY Lakeisha M Justyn 05/29/2021 INTERPRETATION The test was performed [...] of Pulmonary, Critical Care, & Sleep Medicine [facility] 05/29/2021 3:57 PM ?? I have reviewed the above study and agree with the interpretation as listed above. Rosendo Martinez MD [employer] Area Supervisor of Pulmonary & Critical Care Medicine [facility] Pager [phone] Narrative Rosendo Martinez MD - 05/28/2021 1:16 PM CDT Kris Trimble MD ? 05/29/2021 ??3:56 PM Joe Lomas MD PFT ORDERABLES * COMPLETE PFT W/WO BRONCHODILATOR (05/28/2021 1:16 PM CDT) Impressions Rosendo Martinez MD - 05/28/2021 1:16 PM CDT [facility] DEPARTMENT OF PULMONARY, CRITICAL CARE, AND SLEEP MEDICINE PULMONARY FUNCTION TESTS Lakeisha Fabienne Alejandra 05/29/2021 INTERPRETATION Please see technologist's comments [...] Pulmonary, Critical Care, & Sleep Medicine [facility] Medicine 05/29/2021 , 3:55 PM I have reviewed the above study and agree with the interpretation as listed above. Rosendo Martinez MD [employer] Area Supervisor of Pulmonary & Critical Care Medicine [facility] Pager [phone] Narrative Rosendo Martinez MD - 05/28/2021 1:16 PM CDT Kris Trimble MD ? 05/29/2021 ??3:53 PM Don Manuel MD RESPIRATORY THERAPY ORDERABLES documented in this encounter Visit Diagnoses Diagnosis Hypoxia Hypoxemia Chronic obstructive pulmonary disease, unspecified COPD type (HCC) Chronic respiratory failure with hypoxia (HCC) Chronic respiratory failure documented in this encounter Care Teams Buffer Chrome Relationship Specialty Start Date End Date Blake Lindsey MD [address] [place] [address] PCP - General 05/20/16 documented as of this encounter
--- OUTSIDE RECORDS SUMMARY | 2024-07-29 17:21 | XMS_ITS | Encounter Summary ---
Author Organization [facility] Health Address [address] [place] [address] Care Team Providers Care Mc Kay Stitcher Name Role Phone Blake Lindsey MD Primary Care Provider [phone] Encounter Details Date Type Department Care Team (Latest Contact Info) Description 10/18/2020 Travel Social History Tobacco Use Types Packs/Day [...] on filedocumented in this encounter Care Teams Mc Kay Stitcher Relationship Specialty Start Date End Date Blake Lindsey MD [address] [place] [address] PCP - General 05/20/16 documented as of this encounter
--- OUTSIDE RECORDS SUMMARY | 2024-07-29 17:21 | XMS_ITS | Encounter Summary ---
Author Organization [facility] Health Address [address] [place] [address] Care Team Providers Care Life Skills Coach Name Role Phone Blake Lindsey MD Primary Care Provider [phone] Encounter Details Date Type Department Care Team (Late st Contact Info) Description 08/13/2021 2:37 PM GLUED WOOD TESTER - 08/13/2021 3:42 PM [facility] Hospital Encounter [facility] DIAGNOSTIC RAD CSM [address] [facility] [place] [address] Wai Lowry MD [address] [facility] [place] [address] Discharge Disposition: Home or Self Care Social [...] COVID-19? No / Unsure 08/13/2021 3:42 PM GLUED WOOD TESTER documented as of this encounter Functional Status [...] bilateral nares 22 g 1 03/17/2021 NYSTOP [id number] UNIT/GM powder Apply 1 Dose to affected [...] fluticasone propionate (FLONASE) 50 MCG/ACT nasal spray [place] 2 sprays into each nostril once daily [...] Name Priority Date/Time Associated Diagnosis Comments XR PELVIS 1 OR 2VW Routine 08/13/2021 2: 48 PM GLUED WOOD TESTER Pain documented in this encounter Results * XR PELVIS 1 OR 2VW (08/13/2021 2:48 PM GLUED WOOD TESTER) Anatomical Region Laterality Modality Pelvis Radiographic Jonna ging 08/13/2021 2:48 PM GLUED WOOD TESTER Impressions 08/13/2021 2:50 PM GLUED WOOD TESTER IMPRESSION: No acute findings. This report was electronically signed by CHARLIE GOODE ??on 08/13/2021 2:50 PM . Narrative 08/13/2021 2:50 PM GLUED WOOD TESTER EXAMINATION: XR PELVIS 1 OR 2VW, XR [...] CHARLIE GOODE on 08/13/2021 2:50 PM . Wia Lowry MD DIAGNOSTIC IMAGING O RDERABLES documented in this encounter Visit Diagnoses Diagnosis Pain Generalized pain documented in this encounter Care Teams Life Skills Coach Relationship Specialty Start Date End Date Blake Lindsey MD [address] [place] [address] PCP - General 05/20/16 documented as of this encounter
--- OUTSIDE RECORDS SUMMARY | 2024-07-29 17:21 | XMS_ITS | Encounter Summary ---
Author Organization [facility] Health Address [address] [facility] [place] [address] Care Team Providers Care Disc Pad Knockout Worker Name Role Phone Blake Lindsey MD Primary Care Provider [phone] Reason for Visit * Reason Onset Date Comments Lower Extremity Problem Rt, Eval Pain Hip 08/13/2021 Encounter Details Date Type Department Care Team (Late st Contact Info) Description 08/13/2021 2:10 PM PROOFER Office Visit [facility] - Orthopedics [address] [place] [address] [place] [phone] Wai Lowry MD [address] [place] [address] OF [place] [address] Hip pain (Primary Dx); Trochanteric bursitis of right hip Social History Tobacco Use Types Packs/Day Years [...] COVID-19? No / Unsure 08/13/2021 3:42 PM PROOFER documented as of this encounter Functional Status [...] * Patient Instructions* Wai Lowry MD - 08/13/2021 2:33 PM PROOFER Images from the original note were not included. Adult and Pediatric Sports Medicine Lakeisha Alejandra 08/13/2021 Thank you for coming in to see us today for your hip. This is a school/work excuse note for today. We recommend that you try the following for your injury: icing, tylenol, anti-inflammatory medications, activity modification, physical therapy exercises and corticosteroid injections Please contact us at to make an appointment if your symptoms are not improving, or if something about your condition significantly changes. *Please fill out the Press Ganey survey that will be sent to you.* [facility] Orthopaedic office contact information: [facility] ([place] [facility]) [address] [facility] Floor, [place] [address] [facility] Outpatient Operating Room: [facility] [place] [address] [facility] [address], [address], [place] [address] [facility] [address] [place] [address] [facility] [address] [facility], [place] [address] Please do not hesitate to contact me with questions regarding her or any other patient in the future. Our clinical nurse, Heather Ralph, can be reached at and at [email or web address]. Sincerely, Wai Lowry MD Team Physician for the [email or web address] FER documented in this encounter Progress Notes * Steven Gill RN - 08/13/2021 2:41 PM CST Here for right hip eval.- TS FER * Wai Lowry MD - 08/13/2021 2:31 PM CST Images from the original note were not included. Wai Lowry MD [facility] Orthopaedic Sports Medicine Adult and Pediatric Date of Clinic Visit: 08/13/[address] Blake Lindsey MD ; Today we had the pleasure of seeing Lakeisha Alejandra in Orthopaedic Sports Medicine Clinic for re-evaluation of her right hip injury. Lakeisha Alejandra is a 50 year old female who presents for new right posterolateral hip pain. Currently has had pain since November 2020 when she heard a pop and developed lateral and anterior right hip pain, new onset after moving her leg. The symptoms are activity-related and improved with rest. The symptoms limit their activities of daily living. No fevers, chills, numbness, paresthesias or gross motor weakness. They have tried icing, activity modification and heat for their symptoms. Handedness: right-handed Pain Score: 08/13/21 1441 PainSc: Seven PainLoc: Hip SANE Score (0-100): SANE Score 11/16/2018 Left Shoulder Score 40 Medications Current Outpatient Medications on File Prior [...] 0 ??? atorvastatin (LIPITOR) 10 MG tablet Take [...] 20 mg by mouth once daily ??? fluticasone propionate (FLONASE) 50 MCG/ACT nasal spray [place] 2 sprays into each nostril once daily [...] 3 times daily To bilateral nares (Patient taking differently: Apply 1 applicatorful to affected area 3 times daily To bilateral nares) 22g 1 ??? NYSTOP [id number] UNIT/GM powder Apply 1 Dose to affected [...] file prior to visit. Allergies as of 08/13/2021 - Reviewed 08/13/2021 Allergen Reaction Noted ??? Amoxicillin Rash 02/19/2019 [...] today. Social History Occupational History ??? Occupation: [employer] Tobacco Use ??? Smoking status: Former Smoker Packs/day: 1.00 Years: 14.00 Pack years: 14.00 Types: Cigarettes Start date: 1984 Quit date: 11/30/1997 Years since quittin.7 ??? Smokeless tobacco: Never Used Vaping Use ??? Vaping Use: Never used Substance and Sexual Activity ??? Alcohol use: Yes Alcohol/week: 0.0 - 1.0 standard drinks Comment: once a month ??? Drug use: Not Currently Types: Marijuana ??? Sexual activity: Yes Partners: Male Family [...] with no active skin lesions. There is no swelling. There is greater trochanter tenderness. There is painless hip internal rotation. There is painless hip external rotation. Anterior impingement test is negative. Posterior impingment is negative. Flexion subspine impingement test is negative. There is no hip laxity. There is no snapping with hip active and passive circumduction. There is no pain with shucking the hip. There is no pain with logrolling the hip. There is no pain during an abdominal crunch. There is no pain during an abdominal crunch with resisted hip adduction. Imaging: hip X-rays and MRI images and report reviewed by me today are positive for early degenerative changes, trochanteric bursitis on the right, gluteus medius tear. Impression: Right hip early degenerative changes, trochanteric bursitis, gluteus medius tear Plan: We recommended that they try the following to treat their injury: icing, tylenol, anti-inflammatorymedications, activity modification, physical therapy exercises and corticosteroid injections. Please do not hesitate to contact me with questions regarding her or any other patient in the future. Our clinical nurse, Heather Ralph, can be reached at . Sincerely, Wai Lowry MD FER documented in this encounter Procedure Notes * Wai Lowry MD - 08/14/2021 2:09 PM CSTAssociated Order(s): PROCDOC LARGE JOINT INJECTION Procedure(s): IL DRAIN/INJECT LARGE JOINT/BURSA Pre-Procedure Diagnose(s): Hip pain; Trochanteric bursitis of right hip INJECTION PROCEDURE NOTE: The injection site was marked. A timeout was performed. Under sterile conditions, without complications, tolerated well by the patient, 4 cc ropivacaine and 80 mg (2 cc) triamcinolone were injected into the right greater trochanteric bursa. FER documented in this encounter Plan of Treatment Not on file documented as of this encounter Procedures Procedure Name Priority Date/Time Associated Diagnosis Comments IL DRAIN/INJECT LARGE JOINT/BURSA Routine 08/14/2021 2:09 PM PROOFER Hip pain Trochanteric bursitis of right hip documented in this encounter Results * IL DRAIN/INJECT LARGE JOINT/BURSA (08/14/2021 2:09 PM PROOFER) Narrative Wai Lowry MD - 08/14/2021 2:09 PM PROOFER Wai Lowry MD ? 08/14/2021 ??2:09 PM INJECTION PROCEDURE NOTE: The injection site was marked. A timeout was performed. Under sterile conditions, without complications, tolerated well by the patient, 4 cc ropivacaine and 80 mg (2 cc) triamcinolone were injected into the right greater trochanteric bursa. Wai Lowry MD PROCEDURE/MINOR SURG ICAL ORDERABLES documented in this encounter Visit Diagnoses Diagnosis Hip pain- Primary Pain in joint, pelvic region and thigh Trochanteric bursitis of right hip Enthesopathy of hip region documented in this encounter Administered Medications Inactive Administered Medications - up to 3 most recent administrations Medication Order MAR Action Action Date Dose Rate Site ropivacaine (Naropin) 5 MG/ML (0.5%) injection 4 mL 4 mL, Intra-articular, ONCE, 1 dose, On Wed08/13/21 at 1545 $ Given 08/13/2021 3:20 PM PROOFER 4 mL Right Hip triamcinolone acetonide (Kenalog-40) injection 80 mg 80 mg, Intra-articular, ONCE, 1 dose, On Wed08/13/21 at 1545, Shake well before using. $ Given 08/13/2021 3:20 PM PROOFER 80 mg Right Hip documented in this encounter Care Teams Disc Pad Knockout Worker Relationship Specialty Start Date End Date Blake Lindsey MD [address] [place] [phone] PCP - General 05/20/16 documented as of this encounter
--- OUTSIDE RECORDS SUMMARY | 2024-07-29 17:21 | XMS_ITS | Encounter Summary ---
Author Organization [facility] Health Address [address] [facility] [place] [address] Care Team Providers Care Manufacturing Engineer Machining Name Role Phone Blake Lindsey MD Primary Care Provider [phone] Encounter Details Date Type Department Care Team (Latest Contact Info) Description 06/05/2021 Travel Social History Tobacco Use Types Packs/Day [...] on filedocumented in this encounter Care Teams Manufacturing Engineer Machining Relationship Specialty Start Date End Date Blake Lindsey MD [address] [place] [address] PCP - General 05/20/16 documented as of this encounter
--- OUTSIDE RECORDS SUMMARY | 2024-07-29 17:21 | XMS_ITS | Encounter Summary ---
Author Organization [facility] Health Address [address] [place] [address] Care Team Providers Care Manager Commercial Name Role Phone Blake Lindsey MD Primary Care Provider [phone] Reason for Visit * Reason Onset Date Comments MEDICATION REFILL 03/17/2021 Mupirocin Encounter Details Date Type Department Care Team (Late st Contact Info) Description 03/17/2021 Refill [facility] [facility], [place] [address] Chino Enriquez MD [address] [place] [address] [place] [address] MEDICATION REFILL (Mupirocin) Social History Tobacco Use Types Packs/Day Years [...] encounter Miscellaneous Notes * Telephone Encounter - Kandi Domingo RN - 03/17/2021 11:59 AM CDT Refills authorized per Otolaryngology protocol 01/30/2021. documented in this encounter Plan of Treatment Not on file documented as of this encounter Visit Diagnoses Not on filedocumented in this encounter Care Teams Manager Commercial Relationship Specialty Start Date End Date Blake Lindsey MD [address] [place] [address] PCP - General 05/20/16 documented as of this encounter
--- OUTSIDE RECORDS SUMMARY | 2024-07-29 17:21 | XMS_ITS | Encounter Summary ---
Author Organization [facility] Health Address [address] [facility] [place] [address] Care Team Providers Care Brush Holder Inspector Name Role Phone Blake Lindsey MD Primary Care Provider [phone] Encounter Details Date Type Department Care Team (Latest Contact Info) Description 08/13/2021 Travel Social History Tobacco Use Types Packs/Day [...] COVID-19? No / Unsure 08/13/2021 3:42 PM SECURITY INSTALLATION TECHNICIAN documented as of this encounter Functional [...] on filedocumented in this encounter Care Teams Brush Holder Inspector Relationship Specialty Start Date End Date Blake Linsdey MD [address] [place] [address] PCP - General 05/20/16 documented as of this encounter
--- OUTSIDE RECORDS SUMMARY | 2024-07-29 17:21 | XMS_ITS | Encounter Summary ---
Author Organization [facility] Health Address [address] [facility] [place] [address] Care Team Providers Care Risk Developer Name Role Phone Blake Lindsey MD Primary Care Provider [phone] Encounter Details Date Type Department Care Team (Late st Contact Info) Description 08/14/2021 Orders Only [facility] [address] [place], [place] [id number] Lowell Pop MD [address] DIV OF PULMONARY/[place] [address] Iron deficiency anemia, unspecified iron deficiency anemia type Social History Tobacco Use Types Packs/Day [...] COVID-19? No / Unsure 08/13/2021 3:42 PM CLIPMAN documented as of this encounter Functional Status [...] Iron deficiency anemia, unspecified iron deficiency anemia type- Primary documented in this encounter Care Teams Risk Developer Relationship Specialty Start Date End Date Blake Lindsey MD [address] [place] [address] PCP - General 05/20/16 documented as of this encounter
--- OUTSIDE RECORDS SUMMARY | 2024-07-29 17:21 | XMS_ITS | Encounter Summary ---
Author Organization [facility] Address [address] [facility] [place] [address] Care Team Providers Care Instructor Military Science Name Role Phone Blake Lindsey MD Primary Care Provider [phone] Encounter Details Date Type Department Care Team (Late st Contact Info) Description 10/25/2020 Orders Only [facility] - COVID Vaccine [address] [place] [phone] Dave Esposito MD [address] [place] [address] Need for vaccination Social History Tobacco Use Types Packs/Day Years [...] as of this encounter Visit Diagnoses Diagnosis Need for vaccination Need for prophylactic vaccination and inoculation against unspecified single disease documented in this encounter Care Teams Instructor Military Science Relationship Specialty Start Date End Date Blake Lindsey MD [address] [place] [address] PCP - General 05/20/16 documented as of this encounter
--- OUTSIDE RECORDS SUMMARY | 2024-07-29 17:21 | XMS_ITS | Encounter Summary ---
Author Organization [facility] Health Address [address] [place] [address] Care Team Providers Care Top Lift Nailer Name Role Phone Blake Lindsey MD Primary Care Provider [phone] Encounter Details Date Type Department Care Team (Late st Contact Info) Description 08/13/2021 2:37 PM SLITTER PROCESSED FILM - 08/13/2021 3:42 PM [facility] [[email or web address] Hospital [facility]counter [facility]NO[facility] CSM [address]L [address] [facility] [place] [address] Wai Lowry MD [address] [facility] [place] [address] Discharge Disposition: Home or Self Care Social [...] COVID-19? No / Unsure 08/13/2021 3:42 PM SLITTER PROCESSED FILM documented as of this encounter Functional Status [...] bilateral nares 22 g 1 03/17/2021 NYSTOP [id number] UNIT/GM powder Apply 1 Dose to affected [...] fluticasone propionate (FLONASE) 50 MCG/ACT nasal spray [place] 2 sprays into each nostril once daily [...] Name Priority Date/Time Associated Diagnosis Comments XR HIP RIGHT 2VW OR MORE Routine 08/13/2021 2:48 PM SLITTER PROCESSED FILM Tear of right acetabular labrum, initial encounter documented in this encounter Results * XR HIP RIGHT 2VW OR MORE (08/13/2021 2:48 PM SLITTER PROCESSED FILM) Anatomical Region Laterality Modality Pelvis, Lower Extremity [facility] 08/13/2021 2:48 PM SLITTER PROCESSED FILM Impressions 08/13/2021 2:50 PM SLITTER PROCESSED FILM IMPRESSION: No acute findings. This report was electronically signed by CHARLIE GOODE ??on 08/13/2021 2:50 PM . Narrative 08/13/2021 2:50 PM SLITTER PROCESSED FILM EXAMINATION: XR PELVIS 1 OR 2VW, XR [...] Diagnosis Tear of right acetabular labrum, initial encounter documented in this encounter Care Teams Top Lift Nailer Relationship Specialty Start Date End Date Blake Lindsey MD [address] [place] [address] PCP - General 05/20/16 documented as of this encounter
--- OUTSIDE RECORDS SUMMARY | 2024-07-29 17:21 | XMS_ITS | Encounter Summary ---
Author Organization [facility] Health Address [address] [facility] [place] [address] Care Team Providers Care Human Resources Records Clerk Name Role Phone Blake Lindsey MD Primary Care Provider [phone] Encounter Details Date Type Department Care Team (Late st Contact Info) Description 08/13/2021 3:43 PM FUEL OIL TRUCK DRIVER - 08/13/2021 11:59 PM [facility] Hospital Encounter [facility] LAB OP DRAW STATION [address] [place] [address] Wai Lowry MD [facility] [facility] [place] [address] Discharge Disposition: Home or Self Care Social [...] COVID-19? No / Unsure 08/13/2021 3:42 PM FUEL OIL TRUCK DRIVER documented as of this encounter Functional Status [...] bilateral nares 22 g 1 03/17/2021 NYSTOP [id number] UNIT/GM powder Apply 1 Dose to affected [...] fluticasone propionate (FLONASE) 50 MCG/ACT nasal spray [place] 2 sprays into each nostril once daily [...] Procedure Name Priority Date/Time Associated Diagnosis Comments TRANSFERRIN Routine 08/13/2021 3:48 PM FUEL OIL TRUCK DRIVER Chronic, continuous use of opioids IRON BLOOD Routine 08/13/2021 3:48 PM FUEL OIL TRUCK DRIVER Chronic, continuous use of opioids METHYLMALONIC ACID BLOOD Routine 08/13/2021 3:47 PM FUEL OIL TRUCK DRIVER Vitamin B12 deficiency VITAMIN D 25-HYDROXY Routine 08/13/2021 3:47 PM FUEL OIL TRUCK DRIVER Vitamin D deficiency VITAMIN B12 Routine 08/13/2021 3:47 PM FUEL OIL TRUCK DRIVER Vitamin B12 deficiency FERRITIN Routine 08/13/2021 3:47 PM FUEL OIL TRUCK DRIVER Iron deficiency anemia, unspecified iron deficiency anemia type documented in this encounter Results * TRANSFERRIN (08/13/2021 3:48 PM FUEL OIL TRUCK DRIVER) Transferrin 314 174 - 382 mg/dL 08/13/2021 4:39 PM FUEL OIL TRUCK DRIVER [facility] Blood BLOOD SPECIMEN / Unknown Lab Venipuncture / Unknown 08/13/2021 3:48 PM FUEL OIL TRUCK DRIVER 08/13/2021 4:16 PM FUEL OIL TRUCK DRIVER Lowell Pop MD LAB - CHEMISTRY ORD ERABLES Performing Organization Address [facility]/State/[facility] Co de Phone Number [address] [address], [facility] [phone] * IRON BLOOD (08/13/2021 3:48 PM FUEL OIL TRUCK DRIVER) Iron 127 40 - 150 ug/dL 08/13/2021 4:39 PM FUEL OIL TRUCK DRIVER [facility] Blood BLOOD SPECIMEN / Unknown Lab Venipuncture / Unknown 08/13/2021 3:48 PM FUEL OIL TRUCK DRIVER 08/13/2021 4:16 PM FUEL OIL TRUCK DRIVER Lowell Pop MD LAB - CHEMISTRY ORD ERABLES Performing Organization Address City/[facility]/ZIP Co de Phone Number [facility] LABOR[facility]ORY [facility] [address] [place] [address], [place] [phone] * METHYLMALONIC ACID BLOOD (08/13/2021 3:47 PM FUEL OIL TRUCK DRIVER) Pathologist [facility] [place] Methylmalonic Acid 0.15 0.00 - 0.40 umol/L 08/17/2021 1:08 PM FUEL OIL TRUCK DRIVER [facility] ([facility]) Comment: INTERPRETIVE INFORMATION: MMA Serum/Plasma, ?Vitamin B12 Status This test was developed and its performance characteristics determined by [facility]. It has not been cleared or approved by the [place] Food and Drug Administration. This test was performed in a CLIA certified laboratory and is intended for clinical purposes. Performed By: [facility] [address] [place] [address] Chemists: Karol Bowen MD Blood BLOOD SPECIMEN / Unknown Lab Venipuncture / Unknown 08/13/2021 3:47 PM FUEL OIL TRUCK DRIVER 08/13/2021 4:16 PM FUEL OIL TRUCK DRIVER Lowell Pop MD LAB - CHEMISTRY ORD ERABLES Performing Organization Address [facility]/ZIP Co de Phone Number [facility] [employer] ([facility]) [address] [place], [place] [id number] [place] [address] * (ABNORMAL) VITAMIN B12 (08/13/2021 3:47 PM FUEL OIL TRUCK DRIVER) Pathologist [facility] [place] Vitamin B12 989(H) 213 - 816 pg/mL 08/13/2021 5:03 PM FUEL OIL TRUCK DRIVER [facility] Blood BLOOD SPECIMEN / Unknown Lab Venipuncture / Unknown 08/13/2021 3:47 PM FUEL OIL TRUCK DRIVER 08/13/2021 4:14 PM FUEL OIL TRUCK DRIVER Lowell Pop MD LAB - CHEMISTRY ORD ERABLES Performing Organization Address City/[facility]/ZIP Co de Phone Number [facility] [address] [place] [address], [place] [phone] * VITAMIN D 25-HYDROXY (08/13/2021 3:47 PM FUEL OIL TRUCK DRIVER) Vitamin D, 25 Hydroxy 31.0 30.0 - 80.0 ng/mL 08/13/2021 5:03 PM FUEL OIL TRUCK DRIVER [facility] Comment: The recommendations for 25-Hydroxy Vitamin [...] Lab Venipuncture / Unknown 08/13/2021 3:47 PM FUEL OIL TRUCK DRIVER 08/13/2021 4:14 PM FUEL OIL TRUCK DRIVER Lowell Pop MD LAB - CHEMISTRY ORD ERABLES Performing Organization Address [facility] Co de Phone Number [facility] [address] [place] [phone], [facility] [phone] * FERRITIN (08/13/2021 3:47 PM FUEL OIL TRUCK DRIVER) [facility] Ferritin 39 13 - 204 ng/mL 08/13/2021 4:57 PM FUEL OIL TRUCK DRIVER [facility] Blood BLOOD SPECIMEN / Unknown Lab Venipuncture / Unknown 08/13/2021 3:47 PM FUEL OIL TRUCK DRIVER 08/13/2021 4:16 PM FUEL OIL TRUCK DRIVER Lowell Pop MD LAB - CHEMISTRY ORD ERABLES [facility] [address] [place] [address], [facility] [phone] documented in this encounter Visit Diagnoses Diagnosis Chronic, continuous use of opioids- Primary Opioid type dependence, continuous Iron deficiency anemia, unspecified iron deficiency anemia type Vitamin D deficiency Vitamin B12 deficiency Other B-complex deficiencies documented in this encounter Care Teams Human Resources Records Clerk Relationship Specialty Start Date End Date Blake Lindsey MD [address] [place] [address] PCP - General 05/20/16 documented as of this encounter
--- OUTSIDE RECORDS SUMMARY | 2024-07-29 17:21 | XMS_ITS | Encounter Summary ---
Author Organization [facility] Health Address [address] [facility] [address] Care Team Providers Care Embedded Systems Software Developer Name Role Phone Blake Lindsey MD Primary Care Provider [phone] Encounter Details Date Type Department Care Team (Latest Contact Info) Description 03/28/2021 Travel Social History Tobacco Use Types Packs/Day [...] on filedocumented in this encounter Care Teams Embedded Systems Software Developer Relationship Specialty Start Date End Date Blake Lindsey MD [address] [place] [address] PCP - General 05/20/16 documented as of this encounter
--- OUTSIDE RECORDS SUMMARY | 2024-07-29 17:21 | XMS_ITS | Encounter Summary ---
Author Organization [facility] Health Address [address] [place] [address] Care Team Providers Care Engraver Set Up Operator Name Role Phone Blake Lindsey MD Primary Care Provider [phone] Encounter Details Date Type Department Care Team (Latest Contact Info) Description 07/01/2021 4:23 PM SPECIAL NEEDS CAREGIVER - 07/01/2021 11:59 PM [facility] Hospital Encounter [facility] LAB OP DRAW STATION [address] [place] [address] Castillo Max MD [address] [place] [address] [place] [address] Discharge Disposition: Home or Self Care Social [...] COVID-19? No / Unsure 07/01/2021 1:04 PM SPECIAL NEEDS CAREGIVER documented as of this encounter Functional Status [...] bilateral nares 22 g 1 03/17/2021 NYSTOP [id number] UNIT/GM powder Apply 1 Dose to affected [...] fluticasone propionate (FLONASE) 50 MCG/ACT nasal spray [place] 2 sprays into each nostril once daily [...] 09/11/2020 07/15/2021 NARCAN 4 MG/0.1ML nasal spray [place] 4 mg into each nostril as needed [...] Procedure Name Priority Date/Time Associated Diagnosis Comments CULTURE STREP GROUP A Routine 07/01/2021 4:38 PM SPECIAL NEEDS CAREGIVER Acute pharyngitis, unspecified etiology documented in this encounter Results * CULTURE STREP GROUP A (07/01/2021 4:38 PM SPECIAL NEEDS CAREGIVER) Culture Negative for beta-hemolytic Streptococcus Group A NEVIN 07/03/2021 9:52 AM SPECIAL NEEDS CAREGIVER [facility] MICROBIOLOG[facility] Microbiology ENTIRE THROAT (SURFACE REGION OF NECK) / Unknown Collection / Unknown 07/01/2021 4:38 PM SPECIAL NEEDS CAREGIVER 07/01/2021 5:04 PM SPECIAL NEEDS CAREGIVER Jah Ochoa MD LAB - MICROBIOLOGY O RDERABLES [facility] [address] [place] [address], [facility] [phone] documented in this encounter Visit Diagnoses Diagnosis Acute pharyngitis, unspecified etiology- Primary documented in this encounter Care Teams Engraver Set Up Operator Relationship Specialty Start Date End Date Blake Lindsey MD [address] [place] [phone] PCP - General 05/20/16 documented as of this encounter
--- OUTSIDE RECORDS SUMMARY | 2024-07-29 17:21 | XMS_ITS | Encounter Summary ---
Author Organization [facility] Health Address [address] [place] [address] Care Team Providers Care Radiologic Therapist Name Role Phone Blake Lindsey MD Primary Care Provider [phone] Reason for Visit * Reason Comments Ear Problem Encounter Details Date Type Department Care Team (Late st Contact Info) Description 07/01/2021 2:45 PM WOOD FURNITURE ASSEMBLER Office Visit [facility] [address] [place] [address], [place] [address] Jah Ochoa MD [address] [place] [address] [place] [address] Right ear pain (Primary Dx); Acute pharyngitis, unspecified etiology Social History Tobacco Use Types Packs/Day Years [...] COVID-19? No / Unsure 07/01/2021 1:04 PM WOOD FURNITURE ASSEMBLER documented as of this encounter Last Filed Vital Signs Vital Sign Reading Time Taken Comments Blood Pressure 111/64 07/01/2021 1:07 PM WOOD FURNITURE ASSEMBLER Pulse 106 07/01/2021 1:07 PM WOOD FURNITURE ASSEMBLER Temperature - - Respiratory Rate - - Oxygen Saturation - - Inhaled Oxygen Concentration - - Weight 85.7 kg (189 lb) 07/01/2021 1:07 PM WOOD FURNITURE ASSEMBLER Height 160 cm (5' 3 ) 07/01/2021 1:07 PM WOOD FURNITURE ASSEMBLER Body Mass Index 33.48 07/01/2021 1:07 PM WOOD FURNITURE ASSEMBLER documented in this encounter Functional Status Functional [...] this encounter Patient Instructions * Patient Instructions* Geoffrey Janet - 07/01/2021 1:08 PM WOOD FURNITURE ASSEMBLER Thank you for visiting [facility] Otolaryngology - Head & Neck Surgery. [...] an appointment, please call our office at [phone] Wednesday through Wednesday from 8:30 am to4:30 pm. You can also request a routine appointment through your Present[employer] account. ??? Prescription Refills Contact your pharmacy to request all refills. The pharmacy will need to fax the request to us at . Please allow a minimum of 48-72 hours for your prescription to be completed. Your pharmacy will notify you when your prescription is ready to be picked up. ??? Medical Emergency / After Hours Contact Information If you have a medical emergency, please call 911 or go to the nearest emergency room. For urgent medical calls which cannot wait until the office opens, please call the medical exchangeat and ask the streetsweeper operator to page the ENT physician cardiopulmonary technologist. *Caller ID blocking service will need to be turned off for your call to be returned. We also specialize in Hearing Aids, Allergy testing, swallowing disorders, voice problems, cancer diagnosis, and so much more. Visit our website at [email or web address] for information about our practice and an interactive health encyclopedia. FURNITURE ASSEMBLER documented in this encounter Progress Notes * Sharan Mike MD - 07/01/2021 1:46 PM CST Images from the original note were not included. Otolaryngology-Head and Neck Surgery Office Note PATIENT INFORMATION Lakeisha Alejandra 50 year old female Today's Date: 07/01/2021 HPI/ROS/Allergies Lakeisha Alejandra is a 50 year old female with a PMH significant for asthma, COPD, HLD, HECTOR, Hodgkin's lymphoma, TMJ seen for otalgia. She has been previously seen by Nia Augustin, ENT SUPERVISOR FRONT for this 08/22/20. At that time had multiple visits to PCP and treated with antibiotics for fluid/presumed ear infec tions. Had COVID in January, it was bad bad , lots of respiratory sequalae. Was here for CT scan ordered forcervical lymphadenopathy. Previously took Naproxen for pain which was improved. Hot/cold compresses don't seem to help. Edentulous, not sure if she grinds her teeth at night because she doesn't wear her dentures. Sergo, has sleep study scheduled for July for sleep apnea. Allergies: Allergies Allergen Reactions ??? Amoxicillin Rash ??? Penicillins Rash ??? Codeine Other Passes out, Passes out ??? Epinephrine Other When injected in mouth for dental procedures, makes extremities go numb Review of Systems: A 12-system review of systems was performed and was negative except for: Lakeisha reports the following:Ears: ear pain PMH/PSH/SH/FH/Meds PAST MEDICAL HISTORY Past Medical History: Diagnosis Date ??? Asthma ??? COPD (chronic obstructive pulmonary disease) ??? High cholesterol ??? Hodgkins lymphoma ??? Migraine ??? Sleep apnea PAST SURGICAL HISTORY Past Surgical History: Procedure Laterality Date ??? Back Surgery ??? BIOPSY ??? HX SPINAL FUSION ??? OK FEMUR/KNEE SURG UNLISTED both knees ??? LUTHER TOOTH EXTRACTION SOCIAL HISTORY: Social History Tobacco Use ??? Smoking status: Former Smoker Packs/day: 1.00 Quit date: 11/30/1997 Years since quittin.6 ??? Smokeless tobacco: Never Used Substance Use Topics ??? Alcohol use: Yes Alcohol/week: 0.8 standard drinks Comment: once a week ??? Drug use: Not Currently Types: Marijuana FAMILY HISTORY Non-contributory. MEDICATIONS Current Outpatient Medications on File Prior [...] 0 ??? atorvastatin (LIPITOR) 10 MG tablet ??? baclofen (LIORESAL) 20 MG tablet ??? buPROPion XL 24hr (WELLBUTRIN-XL) 150 MG tablet ??? cetirizine (ZYRTEC) 10 MG tablet Take 10 mg by mouth once daily ??? escitalopram (LEXAPRO) 20 MG tablet TAKE 1 TABLET BY MOUTH EVERY DAY IN THE MORNING ??? fluticasone propionate (FLONASE) 50 MCG/ACT nasal spray [place] 2 sprays into each nostril once daily 16 g 5 ??? furosemide (LASIX) 20 MG tablet Take 1 tablet by mouth once daily Reasons: Edema 30 tablet 0 ??? gabapentin (NEURONTIN) 300 MG capsule Take 300 mg by mouth 3 times daily ??? levoFLOXacin (LEVAQUIN) 500 MG tablet (Patient not taking: Reported on 07/01/2021) ??? lidocaine (LIDODERM) 5 % patch Apply 1 (one) patch to skin once daily (Patient not taking: Reported on 03/18/2021) 30 patch 0 ??? lubiprostone (AMITIZA) 24 MCG capsule Take 24 mcg by mouth 2 times daily with morning and evening meal ??? meloxicam (MOBIC) 15 MG tablet ??? montelukast (SINGULAIR) 10 MG tablet Take 10 mg by mouth once daily ??? mupirocin (BACTROBAN) 2 % ointment Apply to affected area 3 times daily To bilateral nares 22 g1 ??? naproxen (NAPROSYN) 500 MG tablet Take 1 (one) tablet by mouth 2 times daily as needed for Pain20 tablet 0 ??? NARCAN 4 MG/0.1ML nasal spray [place] 4 mg into each nostril as needed (Patient not taking: Reported on 07/01/2021) ??? NYSTOP 199356 UNIT/GM powder Apply 1 Dose to affected area 2 times daily 1 ??? omeprazole (PRILOSEC) 20 MG capsule Take 20 mg by mouth once daily ??? ondansetron (ZOFRAN) 4 MG tablet Take 4 mg by mouth as needed ??? potassium chloride ER (KLOR-CON) 20 MEQ tablet Take 1 tablet by mouth once daily 0 ??? prazosin (MINIPRESS) 1 MG capsule ??? QUEtiapine (SEROQUEL) 100 MG tablet Take 1 tablet by mouth at bedtime Reasons: Major DepressiveDisorder (Patient not taking: Reported on 07/01/2021) 30 tablet 0 ??? QUEtiapine (SEROQUEL) 50 MG tablet Take 50 mg by mouth at bedtime (Patient not taking: Reportedon 03/28/2021) 0 ??? RELISTOR 150 MG tablet TAKE 3 TABLETS BY MOUTH EVERY DAY IN THE MORNING (Patient not taking: Reported on 03/28/2021) ??? SENEXON-S 8.6-50 MG tablet Take 1 tablet by mouth once daily Reasons: Constipation (Patient nottaking: Reported on 03/28/2021) 30 tablet 0 ??? silver sulfADIAZINE (SILVADENE) 1 % cream Apply to affected area 2 times daily (Patient not taking: Reported on 07/01/2021) ??? spironolactone (ALDACTONE) 25 MG tablet Take 1 tablet by mouth once daily 2 ??? SUMAtriptan (IMITREX) 50 MG tablet Take 1 tablet by mouth once as needed for Migraine Maximum daily dose: 200mg/24 hours Reasons: Migraine Headache 30 tablet 0 ??? terbinafine (LAMISIL) 250 MG tablet Take 250 mg by mouth once daily (Patient not taking: Reported on 03/18/2021) 2 ??? traZODone (DESYREL) 50 MG tablet Take 50 mg by mouth nightly as needed (Patient not taking: Reported on 07/01/2021) ??? TRELEGY ELLIPTA 100-62.5-25 MCG/INH Inhale 1 puff by mouth every 6 hours as needed ??? XTAMPZA ER 9 MG capsule Take 9 mg by mouth 2 times daily No current facility-administered medications on file prior to visit. Physical Exam Vitals: BP 111/64 Pulse 106 Ht 5' 3 (1.6 m) Wt 189 lb (85.7 kg) LMP (LMP Unknown) BMI 33.48 kg/m?? Constitutional: Alert, NAD. Well developed/well nourished. CV/Pulm: Normal respirations and peripheral pulses. Eyes: PERRL, EOMI Face/Skin: Normal appearance, no lesions/masses. Ears: Right: Normal external auditory canal Left: Normal external auditory canal Nose: Crusting bilaterally, moderate right septal deviation with dried blood and crust in right naris, turbinates intact, mucosal membranes intact. Mouth and oropharynx: Symmetric tongue mobility, no lesions/masses/ulcers. Tonsillar exudates. Neck: Supple, no lymphadenopathy, no masses. Voice: Strong. MusculoSkeletal: Moves all extremities well. Neuro: Cranial nerves III-XII grossly intact. Procedure Note Endoscopy Type: Laryngoscopy without stroboscopy Endoscope: Flexible 4mm Scope Anesthesia: Lidocaine 2% and Neosynephrine 1/2% (nasal) Procedure Details: The patient was sitting upright in a chair with the head in a slightly anterior sniffing position. The topical anesthesia was administered and then adequate time was allowed for an anesthetic effect.The endoscope was passed thru the bilateral nasal [...] cords mobile bilaterally and symmetric. Condition: Stable. Patient tolerated procedure well. Complications: None The attending was present for and participated in critical portions of the entirety of the procedure. Assessment & Plan Lakeisha Alejandra is a 50 year old female with right-sided otalgia, >1 year of symptoms, normal flexible laryngoscopic exam, likely related to known TMJ. 1. For TMJ pain, recommend soft diet for 2 weeks, cold or warm compresses as desired. Patient may also benefit from a trial of NSAIDs (like ibuprofen or aleve) for two weeks. 2. Right tonsil swabbed and sent for culture. Will send culture-directed antibiotics as indicated. Patient will also call if worsening symptoms of sore throat. 3. Recommended nasal saline irrigations. 4. Patient has right septal deviation and bilateral inferior turbinate hypertrophy causing nasal obstruction that has been refractory to medical therapy. We discussed that the a reasonable treatment for this would be septoplasty with inferior turbinate reduction. Risks, benefits, and alternatives discussed, including risk of pain, bleeding, infection, need for further intervention, and septal perforation. Patient may consider this in the future. 5. Continue good sleep hygiene, including ongoing efforts towards weight loss, regular exercise, avoiding alcohol and caffeine near bed times, keeping as regular a sleep schedule as possible, etc. She will also follow up with Sleep Medicine as scheduled. Follow up with Dr. Ochoa in 3 months. Sharan Mike MD Otolaryngology-Head and Neck Surgery 07/01/21 I have seen and examined the patient and agree with the comments and findings in the above residentnote. The above note reflects a procedure that I performed in clinic. The resident surgeon assisted with the procedure and/or the procedural note. I was present for, and participated in, the entirety of the procedure. Jah Ochoa M.D. Professor 50-year-old referred to our office for right-sided ear pain. The examination is unremarkable she does have a severe right septal deviation. We had extensive discussion today about managing the symptoms by doing salt water irrigations. We also offered her the potential option of a septoplasty sometime in the future. Finally we discussed appropriate healthy patient options such as adequate sleep exercise avoiding alcohol caffeine. I have asked her to try an anti-inflammatory medication to see if this will also help the discomfort she experiences in her right ear. FURNITURE ASSEMBLER * Janet Hale - 07/01/2021 1:08 PM CST Review of Systems Lakeisha reports the following:Ears: ear pain FURNITURE ASSEMBLER documented in this encounter Procedure Notes * Shraan Mike MD - 07/01/2021 5:16 PM CSTAssociated Order(s): PROC ENDOSCOPY-LARYNX Procedure(s): OK LARYNGOSCOPY,FLEX FIBER,DIAGNOSTIC Pre-Procedure Diagnose(s): Right ear pain Procedure Note Endoscopy Type: Laryngoscopy without stroboscopy Endoscope: Flexible 4mm Scope Anesthesia: Lidocaine 2% and Neosynephrine 1/2% (nasal) Procedure Details: The patient was sitting upright in a chair with the head in a slightly anterior sniffing position. The topical anesthesia was administered and then adequate time was allowed for an anesthetic effect.The endoscope was passed thru the bilateral nasal [...] cords mobile bilaterally and symmetric. Condition: Stable. Patient tolerated procedure well. Complications: None The attending was present for and participated in critical portions of the entirety of the procedure. FURNITURE ASSEMBLER documented in this encounter Plan of Treatment Scheduled Orders Name Type Priority Associated Diagnoses Orde r Schedule CULTURE THROAT Microbiology Routine Acute pharyngitis, unspecified etiology Ordered: 07/01/2021 documented as of this encounter Procedures Procedure Name Priority Date/Time Associated Diagnosis Comments OK LARYNGOSCOPY,FLEX FIBER,DIAGNOSTIC Routine 07/01/2021 5:16 PM WOOD FURNITURE ASSEMBLER Right ear pain documented in this encounter Results * OK LARYNGOSCOPY,FLEX FIBER,DIAGNOSTIC (07/01/2021 5:16 PM WOOD FURNITURE ASSEMBLER) Narrative Sharan Mike MD - 07/01/2021 5:16 PM WOOD FURNITURE ASSEMBLER Sharan Mike MD ? 07/01/2021 ??7:16 PM [...] Jah Ochoa MD PROCEDURE/MINOR SURG ICAL ORDERABLES documented in this encounter Visit Diagnoses Diagnosis Right ear pain- Primary Otalgia, unspecified Acute pharyngitis, unspecified etiology documented in this encounter Care Teams Radiologic Therapist Relationship Specialty Start Date End Date Blake Lindsey MD [address] [place] [address] PCP - General 05/20/16 documented as of this encounter
--- OUTSIDE RECORDS SUMMARY | 2024-07-29 17:21 | XMS_ITS | Encounter Summary ---
Author Organization [facility] Health Address [address] [place] [address] Care Team Providers Care Pigs Feet Finisher Name Role Phone Blake Lindsey MD Primary Care Provider [phone] Reason for Referral * Radiology Services (Routine) - Closed Specialty Diagnoses / Procedures Referred By Contac t Referred To Contact CT Scan Diagnoses Chest pain, unspecified type Hypoxia Lower extremity edema Procedures CT ANGIO CHEST PULM EMBOLISM Don Manuel MD [address] [place] [address] 2L DIV OF PULMONARY/[place] [address] [facility] [address] [place] [address] Referral ID Status Reason Start Date Expiration Date Visits Re quested Visits Authorized [id number] Closed 03/18/2021 03/18/2022 1 1 Reason for Visit * Radiology Services (Routine) - Closed Specialty Diagnoses / Procedures Referred By Contac t Referred To Contact CT Scan Diagnoses Chest pain, unspecified type Hypoxia Lower extremity edema Procedures CT ANGIO CHEST PULM EMBOLISM Don Manuel MD [address] [facility] 2L DIV OF PULMONARY/[place] [address] [facility] [address] [place] [address] Referral ID Status Reason Start Date Expiration Date Visits Re quested Visits Authorized [id number] Closed 03/18/2021 03/18/2022 1 1 Encounter Details Date Type Department Care Team (Latest Contact Info) Description 03/28/2021 7:00 AM CDT - 03/28/2021 7:05 AM CDT Hospital Encounter [facility] CAT SCAN [address] [place] [address] Don Manuel MD [address] [facility] 2L DIV OF PULMONARY/[place] [address] Discharge Disposition: Home or Self Care Social [...] bilateral nares 22 g 1 03/17/2021 NYSTOP 154373 UNIT/GM powder Apply 1 Dose to affected [...] fluticasone propionate (FLONASE) 50 MCG/ACT nasal spray [place] 2 sprays into each nostril once daily [...] 09/11/2020 07/15/2021 NARCAN 4 MG/0.1ML nasal spray [place] 4 mg into each nostril as needed [...] Name Priority Date/Time Associated Diagnosis Comments CT ANGIO CHEST PULM EMBOLISM Routine 03/28/2021 7:16 AM CDT Chest pain, unspecified type Hypoxia Lower extremity edema CREATININE - POCT INTERFACED Routine 03/28/2021 7:07 AM CDT documented in this encounter Results * CT ANGIO CHEST PULM EMBOLISM (03/28/2021 [...] 4.Cholelithiasis. Report drafted by Remy Gomez (resident) IDr. Hollis M.D. have personally reviewed and interpreted this examination/study. This report was electronically signed by Hollis ETIENNE M.D. ??on 03/28/2021 1:40 PM . Narrative [...] Abdomen: Gallstones are seen. Procedure Note Denise Etienne MD - 03/28/2021 Procedure Information DATE: 03/28/2021 [...] 4.Cholelithiasis. Report drafted by Remy Gomez (resident) Renzo, Dr. Hollis ETIENNE M.D. have personally reviewed and interpretedthis examination/study. This report was electronically signed by Hollis ETIENNE M.D. on 03/28/2021 1:40 PM . Don Manuel MD CT ORDERABLES * CREATININE - POCT INTERFACED (03/28/2021 7:07 AM CDT) Creatinine POCT 0.75 0.30 - 1.30 mg/dL 03/28/2021 7:27 AM CDT [facility] eGFR >60 >60 mL/min/1.7 3 m2 03/28/2021 7:27 AM CDT [facility] Blood BLOOD SPECIMEN / Unknown 03/28/2021 7:07 AM CDT 03/28/2021 7:27 AM CDT Don Manuel MD LAB - POINT OF CARE ORDERABLES Performing Organization Address City/State/[facility] Co de Phone Number [facility] [address] [place] [phone], [facility] [phone] documented in this encounter Visit Diagnoses Diagnosis Chest pain, unspecified type Hypoxia Hypoxemia Lower extremity edema Edema documented in this encounter Administered Medications Inactive Administered Medications - up to 3 most recent administrations Medication Order MAR Action Action Date Dose Rate Site iopamidol (Isovue 370) 76 % contrast Intravenous, CONTRAST ONCE, Starting on Wed03/28/21 at 0700, Until 03/29/21 at 0039 $ Given - Contrast 03/28/2021 7:09 AM CDT 100 mL documented in this encounter Care Teams Pigs Feet Finisher Relationship Specialty Start Date End Date Blake Lindsey MD [address] [place] [address] PCP - General 05/20/16 documented as of this encounter
--- OUTSIDE RECORDS SUMMARY | 2024-07-29 17:21 | XMS_ITS | Encounter Summary ---
Author Organization [facility] Health Address [address] [facility] [place] [address] Care Team Providers Care Musical Performer Name Role Phone Blake Lindsey MD Primary Care Provider [phone] Reason for Visit * Procedure (Routine) - Closed Specialty Diagnoses / Procedures Referred By Ariel cano Referred To Contact Sleep Center Diagnoses Central sleep apnea comorbid with prescribed opioid use Primary central sleep apnea Procedures PROC POLYSOMNOGRAPHY,THERAPEUT IC FULL NIGHT Reba Crews, APNP-FILTER WASHER [address] [place] [address] [facility] [address] [place] [address] Referral ID Status Reason Start Date Expiration Date Visits Re quested Visits Authorized [id number] Closed 07/15/2021 07/15/2022 1 1 Encounter Details Date Type Department Care Team (Latest Contact Info) Description 08/05/2021 8:00 PM CLERICAL AND OFFICE SUPPORT WORKERS Procedure visit [facility] [address] [place] [address] Sleep related hypoxia ; Sleep apnea, unspecified type Social History Tobacco Use Types [...] as of this encounter Progress Notes * Lowell Pop MD - 08/06/2021 10:07 AM CST [facility] Accredited by the [employer] [facility], First Floor [address] [place] [address] Telephone : [phone] Medical Records Patient Name: Lakeisha Alejandra : 1970 Date of Study: 08/05/2021 Referring Physician: Blake Lindsey MD Type of Montage: Respiratory Scoring Montage: [facility] FULL NIGHT THERAPEUTIC POLYSOMNOGRAM INTERPRETATION Procedure: The polysomnogram was performed with a product/device technologist in attendance. Central, occipital, and temporal EEG, EOG, submentalis, EMG, airflow via positive airway pressure, thoracoabdominal motion, anterior tibialis EMG, snore sensor, and pulse oximetry were monitored. Sleep stages, periodic limb mov ements, and EEG arousals were scored in 30-second epochs according to the AASM Scoring Manual. Apnea-hypopnea index was calculated using the recommended definition of hypopnea for scoring events. Data acquisition, collection, and scoring have been validated and clinically correlated. Sleep History: Ms. Lakeisha Alejandra, a 50 year oldqad-cmsx-yvt female, was referred to the Sleep Disorders Clinic by Blake Medeiros MD for the evaluation of sleep apnea. Current Outpatient Medications: ??? albuterol (PROVENTIL;VENTOLIN) (2.5 [...] fluticasone propionate (FLONASE) 50 MCG/ACT nasal spray, [place] 2 sprays into each nostril once daily, [...] Disp: 22 g, Rfl: 1 ??? NYSTOP 035999 UNIT/GM powder, Apply 1 Dose to affected [...] range of 4-15 cmH2O to a maximum settingof EPAP range of 4-8 cmH2O and PS range of 6-10 cmH2O. Oxygen side flow was titrated from a minimumrate of 0 to a maximum of 3 L/min via BiPAP AutoSV. BiPAP autoSV at the maximum setting of EPAP range of 4-8 cmH2O and PS range of 6-10 cmH2O plus O2 side flow at 3 L/min was associated with a normalAHI of 1 per hour, an increased RERAI of 17.6 per hour, a normal minimum oxygen saturation of 89% The minimum oxygen saturation was decreased at 82%. The overall time spent with oxygen saturation less than 90% was 107.5 min. No snoring was detected on optimal BiPAP autoSV setting. Periodic Limb Movement Profile: The patient's periodic limb movement index was elevated at 87.5 per hour. Virtually none of the legmovements was associated with arousals. EEG Profile: The patient's total arousal index at maximal BiPAP autoSV setting of EPAP range of 4-8 cmH2O and PSrange of 6-10 cmH2O plus O2 side flow at 3 L/min was elevated at 19.9 per hour. Virtually all of the arousals were due to respiratory events There was no evidence of epileptiform activity during sleep. Cardiac Profile: EKG showed normal sinus rhythm. No clinically significant arrhythmia was noted. Parasomnia Profile: No parasomnia was noted during this threapeutic study. IMPRESSION: BiPAP autoSV setting of EPAP range of 4-8 cmH2O and PS range of 6-10 cmH2O plus O2 side flow at 3 L/min was effective in ameliorating obstructive apneas, hypopneas, and hypoxemia but was associated with persistence of respiratory effort-related arousals. RECOMMENDATIONS: 1. Suggest further titration of BiPAP AutoSV beyond an IPAP of 18 cmH2O to ameliorate residual abnormal respiratory breathing events. 2. Evaluate for causes of sleep-related hypoxemia disorder (e.g., hypoventilation, ventilation-perfusion mismatch, deadspace, shunt, diffusion abnormality, etc.). Lowell Pop MD, MSP, FCCP, [facility] Night Time Babysitter, [facility] [place] Professor of Internal Medicine Adjunct Sawmill Hand of Neurology Division of Pulmonary, Critical Care, and Sleep Medicine [facility] This note was electronically signed on 08/06/2021. ICAL AND OFFICE SUPPORT WORKERS documented in this encounter Procedure Notes * Lowell Pop MD - 08/06/2021 10:18 AM CSTAssociated Order(s): PROC POLYSOMNOGRAPHY,THERAPEUTIC FULL NIGHT Procedure(s): AR POLYSOM 6/>YRS CPAP 4/> PARM Pre-Procedure Diagnose(s): Central sleep apnea comorbid with prescribed opioid use; Primary centralsleep apnea Post-Procedure Diagnose(s): Sleep apnea, unspecified type; Sleep related hypoxia [facility] Accredited by the [employer] [facility] First Floor [address] [place] [address] Telephone : [phone] Medical Records Patient Name: Lakeisha Alejandra : 1970 Date of Study: 08/05/2021 Referring Physician: Blake Lindsey MD Type of Montage: Respiratory Scoring Montage: [facility] FULL NIGHT THERAPEUTIC POLYSOMNOGRAM INTERPRETATION Procedure: The polysomnogram was performed with a product/device technologist in attendance. Central, occipital, and temporal EEG, EOG, submentalis, EMG, airflow via positive airway pressure, thoracoabdominal motion, anterior tibialis EMG, snore sensor, and pulse oximetry were monitored. Sleep stages, periodic limb mov ements, and EEG arousals were scored in 30-second epochs according to the AASM Scoring Manual. Apnea-hypopnea index was calculated using the recommended definition of hypopnea for scoring events. Data acquisition, collection, and scoring have been validated and clinically correlated. Sleep History: Ms. Lakeisha Alejandra, a 50 year oldcma-czjc-ukb female, was referred to the Sleep Disorders Clinic by Blake Medeiros MD for the evaluation of sleep apnea. Current Outpatient Medications: ??? albuterol (PROVENTIL;VENTOLIN) (2.5 [...] fluticasone propionate (FLONASE) 50 MCG/ACT nasal spray, [place] 2 sprays into each nostril once daily, [...] Disp: 22 g, Rfl: 1 ??? NYSTOP [id number] UNIT/GM powder, Apply 1 Dose to affected [...] range of 4-15 cmH2O to a maximum settingof EPAP range of 4-8 cmH2O and PS range of 6-10 cmH2O. Oxygen side flow was titrated from a minimumrate of 0 to a maximum of 3 L/min via BiPAP AutoSV. BiPAP autoSV at the maximum setting of EPAP range of 4-8 cmH2O and PS range of 6-10 cmH2O plus O2 side flow at 3 L/min was associated with a normalAHI of 1 per hour, an increased RERAI of 17.6 per hour, a normal minimum oxygen saturation of 89% The minimum oxygen saturation was decreased at 82%. The overall time spent with oxygen saturation less than 90% was 107.5 min. No snoring was detected on optimal BiPAP autoSV setting. Periodic Limb Movement Profile: The patient's periodic limb movement index was elevated at 87.5 per hour. Virtually none of the legmovements was associated with arousals. EEG Profile: The patient's total arousal index at maximal BiPAP autoSV setting of EPAP range of 4-8 cmH2O and PSrange of 6-10 cmH2O plus O2 side flow at 3 L/min was elevated at 19.9 per hour. Virtually all of the arousals were due to respiratory events There was no evidence of epileptiform activity during sleep. Cardiac Profile: EKG showed normal sinus rhythm. No clinically significant arrhythmia was noted. Parasomnia Profile: No parasomnia was noted during this threapeutic study. IMPRESSION: BiPAP autoSV setting of EPAP range of 4-8 cmH2O and PS range of 6-10 cmH2O plus O2 side flow at 3 L/min was effective in ameliorating obstructive apneas, hypopneas, and hypoxemia but was associated with persistence of respiratory effort-related arousals. RECOMMENDATIONS: 1. Suggest further titration of BiPAP AutoSV beyond an IPAP of 18 cmH2O to ameliorate residual abnormal respiratory breathing events. 2. Evaluate for causes of sleep-related hypoxemia disorder (e.g., hypoventilation, ventilation-perfusion mismatch, deadspace, shunt, diffusion abnormality, etc.). Lowell Pop MD, [facility] [place], [facility], [facility] Night Time Babysitter, [facility] Professor of Internal Medicine Adjunct Sawmill Hand of Neurology Division of Pulmonary, Critical Care, and Sleep Medicine [facility] This note was electronically signed on 08/06/2021. ICAL AND OFFICE SUPPORT WORKERS documented in this encounter Plan of Treatment Not on file documented as of this encounter Procedures Procedure Name Priority Date/Time Associated Diagnosis Comments AR POLYSOM 6/>YRS CPAP 4/> PARM Routine 08/06/2021 10:18 AM CLERICAL AND OFFICE SUPPORT WORKERS Central sleep apnea comorbid with prescribed opioid use Primary central sleep apnea documented in this encounter Visit Diagnoses Diagnosis Sleep related hypoxia- Primary Idiopathic sleep related nonobstructive alveolar hypoventilation Sleep apnea, unspecified type documented in this encounter Care Teams Musical Performer Relationship Specialty Start Date End Date Blake Lindsey MD [address] [place] [id number] PCP - General 05/20/16 documented as of this encounter
--- OUTSIDE RECORDS SUMMARY | 2024-07-29 17:21 | XMS_ITS | Encounter Summary ---
Author Organization [facility] Health Address [address] [facility] [place] [address] Care Team Providers Care Stone Breaker Name Role Phone Blake Lindsey MD Primary Care Provider [phone] Reason for Visit * Radiology Services (Routine) - Closed Specialty Diagnoses / Procedures Referred By Contac t Referred To Contact Echosonography Diagnoses Chest pain, unspecified type Hypoxia Lower extremity edema Procedures ECHO STRESS W DOBUTAMINE Don Manuel MD [address] [facility] 2L DIV OF PULMONARY/[place] [address] [facility] Echo [address] [place] [address] Referral ID Status Reason Start Date Expiration Date Visits Re quested Visits Authorized [id number] Closed 03/18/2021 03/18/2022 1 1 Encounter Details Date Type Department Care Team (Latest Contact Info) Description 03/28/2021 7:58 AM CDT - 03/28/2021 9:29 AM CDT Hospital Encounter [facility] ECHO [address] [place] [address] Don Manuel MD [address] [facility] 2L DIV OF PULMONARY/[place] [address] Discharge Disposition: Home or Self Care Social [...] Sign Reading Time Taken Comments Blood Pressure 101/64 03/28/2021 8:27 AM CDT Pulse 72 03/28/2021 8:27 AM CDT Temperature - - Respiratory Rate 20 03/28/2021 8:27 AM CDT Oxygen Saturation 100% 03/28/2021 8:27 AM CDT Inhaled Oxygen Concentration - - Weight 83 kg (183 lb) 03/28/2021 8:47 AM CDT Height 160 cm (5' 3 ) 03/28/2021 8:47 AM CDT Body Mass Index 32.42 03/28/2021 8:47 AM CDT documented in this encounter Functional [...] bilateral nares 22 g 1 03/17/2021 NYSTOP [id number] UNIT/GM powder Apply 1 Dose to affected [...] fluticasone propionate (FLONASE) 50 MCG/ACT nasal spray [place] 2 sprays into each nostril once daily [...] 09/11/2020 07/15/2021 NARCAN 4 MG/0.1ML nasal spray [place] 4 mg into each nostril as needed [...] as of this encounter Procedure Notes * Alka Park RN - 03/28/2021 8:52 AM CDTProcedure(s): ECHO STRESS W DOBUTAMINE Pt to echo lab. NPO status verified. Procedure explained to pt. Pt verbalized understanding and agrees to continue with exam as explained. Pt denies C/O CP . IV NSL patent to right arm. Pt oin home O2 at 4/L NC. SaO2 100%- Pt verbalized C/O SOB ongoing since COVID dx in January. 929 Dr [place]old[place] to bedside. 1015 Procedure completed per protocol. Target heart rate achieved using dobutamine at 30 Mcg/kg/minand atropine 0.4 mg IVP X 2 . Pt remained asymptomatic. Heart rate and BP returning to baseline. Ok[place] dc pt from the echo lab per . IV NSL dc'd. Pt taken to [facility] area for PFT's and PFT lab notified that stress testing was completed. . * Alka Park RN - 03/27/2021 5:47 PM CDTProcedure(s): ECHO STRESS W DOBUTAMINE Reminder call placed to pt regarding upcoming echo appointment. No answer. VM message left :Please register in the [facility] 15mins prior to your first scheduled appointment, Do not eat or drink anything after MN tonight, take all of your morning medications as usual with a sip of water. Call back number left for questions or concerns. documented in this encounter Plan of Treatment Not on file documented as of this encounter Procedures Procedure Name Priority Date/Time Associated Diagnosis Comments CARDIAC EKG ORDER 03/31/2021 2:3 9 PM CDT ECHO STRESS W DOBUTAMINE Routine 03/28/2021 10:12 AM CDT Chest pain, unspecified type Hypoxia Lower extremity edema documented in this encounter Results * CARDIAC EKG ORDER (03/31/2021 2:39 PM CDT) Narrative 03/31/2021 2:39 PM CDT Ordered by an unspecified provider. Scanned Document CARDIAC SERVICES ORD ERABLES documented in this encounter Visit Diagnoses Diagnosis Chest pain, unspecified type Hypoxia Hypoxemia Lower extremity edema Edema documented in this encounter Administered Medications Inactive Administered Medications - up to 3 most recent administrations Medication Order MAR Action Action Date Dose Rate Site atropine injection 0.4 mg 0.4 mg, Intravenous, INTRA-PROCEDURE MULTIPLE, 4 doses, Starting on Wed03/28/21 at 0911, Until 03/29/21 at 0039, For Echo Procedure - Per Protocol $ Given 03/28/2021 9:50 AM CDT 0.4 mg $ Given 03/28/2021 9:48 AM CDT 0.4 mg DOBUTamine (Dobutrex) 50 mg in 50 ml 0-50 mcg/kg/min ? 83 kg (0-249 mL/hr), Intravenous, INTRA-PROCEDURE CONTINUOUS, Starting on Wed03/28/21 at 0915, Until Wed03/28/21 at 1314, For Echo Procedure - Per Protocol $ New Bag/Syringe 03/28/2021 9:39 AM CDT 10 mcg/kg/min 49.8 mL/hr perflutren Lipid Microsphere (Definity) injection SUSP 0.5 mL 0.5 mL, Intravenous, INTRA-PROCEDURE MULTIPLE, 6 doses, Starting on Wed03/28/21 at 0911, Until 03/29/21 at 0039, For Echo Procedure - Per Protocol Shake well before using. $ Given 03/28/2021 10:04 AM CDT 0.5 mL $ Given 03/28/2021 9:51 AM CDT 0.5 mL $ Given 03/28/2021 9:39 AM CDT 0.5 mL documented in this encounter Care Teams Stone Breaker Relationship Specialty Start Date End Date Blake Lindsey MD [address] [place] [address] PCP - General 05/20/16 documented as of this encounter
--- OUTSIDE RECORDS SUMMARY | 2024-07-29 17:21 | XMS_ITS | Encounter Summary ---
Author Organization [facility] Health Address [address] [facility] [place] [address] Care Team Providers Care Computer Customer Support Specialist Name Role Phone Blake Lindsey MD Primary Care Provider [phone] Encounter Details Date Type Department Care Team (Latest Contact Info) Description 03/28/2021 9:30 AM CDT - 03/28/2021 10:59 AM CDT Hospital Encounter [facility] PFT [address] [place] [address] Don Manuel MD [address] [facility] 2L DIV OF PULMONARY/[place] [address] Discharge Disposition: Home or Self Care Social [...] bilateral nares 22 g 1 03/17/2021 NYSTOP [id number] UNIT/GM powder Apply 1 Dose to affected [...] fluticasone propionate (FLONASE) 50 MCG/ACT nasal spray [place] 2 sprays into each nostril once daily [...] 09/11/2020 07/15/2021 NARCAN 4 MG/0.1ML nasal spray [place] 4 mg into each nostril as needed [...] as of this encounter Procedure Notes * Elicia Lucero DO - 03/28/2021 2:53 PM CDTAssociated Order(s): PFT OXYGEN DESATURATION STUDY Images from the original note were not included. * Elicia Lucero DO - 03/28/2021 2:52 PM CDTAssociated Order(s): SIX MINUTE WALK Images from the original note were not included. documented in this encounter Plan of Treatment Not on file documented as of this encounter Procedures Procedure Name Priority Date/Time Associated Diagnosis Comments PFT OXYGEN DESATURATION STUDY Routine 03/28/2021 2:53 PM CDT Hypoxia Uncomplicated asthma, unspecified asthma severity, unspecified whether persistent (HCC) Chronic obstructive pulmonary disease, unspecified COPD type (HCC) SIX MINUTE WALK Routine 03/28/2021 2:52 PM CDT Hypoxia documented in this encounter Results * PFT OXYGEN DESATURATION STUDY (03/28/2021 2:53 PM CDT) Impressions Manjinder Costa MD - 03/28/2021 2:53 PM CDT [facility] DEPARTMENT OF PULMONARY, CRITICAL CARE, AND SLEEP MEDICINE OXYGEN TITRATION STUDY Lakeihsa M Justyn 03/28/2021 INTERPRETATION The test was performed [...] and agree with the interpretation by the Insulation Board Coater Operator. Manjinder Costa M.D. Shoe Lay Out Planner of Internal Medicine Division of Pulmonary, Critical Care and Sleep Medicine [facility] Narrative Manjinder Costa MD - 03/28/2021 2:53 PM CDT Elicia Lucero I., DO ? 03/28/2021 ??6:06 PM Don Manuel MD PFT ORDERABLES * SIX MINUTE WALK (03/28/2021 2:52 PM CDT) Impressions Manjinder Costa MD - 03/28/2021 2:52 PM CDT [facility] DEPARTMENT OF PULMONARY, CRITICAL CARE, AND SLEEP MEDICINE SIX MINUTE WALK TEST Lakeisha M Justyn 03/28/2021 Interpretation: The patient walked for [...] and agree with the interpretation by the Insulation Board Coater Operator. Manjinder Costa M.D. Shoe Lay Out Planner of Internal Medicine Division of Pulmonary, Critical Care and Sleep Medicine [facility] Narrative Manjinder Costa MD - 03/28/2021 2:52 PM CDT Elicia Lucero I., DO ? 03/28/2021 ??6:06 PM Don Manuel MD RESPIRATORY THERAPY ORDERABLES documented in this encounter Visit Diagnoses Diagnosis Hypoxia Hypoxemia Uncomplicated asthma, unspecified asthma severity, unspecified whether persistent (HCC) Chronic obstructive pulmonary disease, unspecified COPD type (HCC) documented in this encounter Care Teams Computer Customer Support Specialist Relationship Specialty Start Date End Date Blake Lindsey MD [address] [place] [address] PCP - General 05/20/16 documented as of this encounter
--- OUTSIDE RECORDS SUMMARY | 2024-07-29 17:21 | XMS_ITS | Encounter Summary ---
Author Organization [facility] Health Address [address] [place] [address] Care Team Providers Care Poultry Pinner Name Role Phone Blake Lindsey MD Primary Care Provider [phone] Encounter Details Date Type Department Care Team (Latest Contact Info) Description 05/28/2021 Travel Social History Tobacco Use Types Packs/Day [...] on filedocumented in this encounter Care Teams Poultry Pinner Relationship Specialty Start Date End Date Blake Lindsey MD [address] [place] [address] PCP - General 05/20/16 documented as of this encounter
--- OUTSIDE RECORDS SUMMARY | 2024-07-29 17:21 | XMS_ITS | Encounter Summary ---
Author Organization [facility] Health Address [address] [facility] [place] [address] Care Team Providers Care Java Core Developer Name Role Phone Blake Lindsey MD Primary Care Provider [phone] Encounter Details Date Type Department Care Team (Late st Contact Info) Description 03/17/2021 Orders Only [facility] [address] [place] [phone] Kandi Domingo RN Social History Tobacco Use [...] on filedocumented in this encounter Care Teams Java Core Developer Relationship Specialty Start Date End Date Blake Lindsey MD [address] [place] [address] PCP - General 05/20/16 documented as of this encounter
--- OUTSIDE RECORDS SUMMARY | 2024-07-29 17:21 | XMS_ITS | Encounter Summary ---
Author Organization [facility] Health Address [address] [facility] [place] [address] Care Team Providers Care Caisson Worker Name Role Phone Blake Lindsey MD Primary Care Provider [phone] Encounter Details Date Type Department Care Team (Late st Contact Info) Description 08/08/2021 Orders Only [facility] [address] [place], [place] [id number] Lowell Pop MD [address] DIV OF PULMONARY/[place] [address] Social History Tobacco Use Types Packs/Day Years [...] Progress Notes * Lowell Pop MD - 08/08/2021 12:14 PM CST [facility], First Floor [address] [place] [address] Telephone : [phone] Medical Records OVERNIGHT OXIMETRY REQUEST FORM Name: Lakeisha Alejandra Date of : 1970 Date of Request: 08/08/2021 Age: [age] year old Sex: female Test Ordered: [x] Overnight Oximetry performed on: [x] ASV at setting of: EPAP min pressure = 4 cmH2O EPAP max pressure = 8 cmH2O PS min = 6 cmH2O PS max = 10 cmH2O Impression: [] Obstructive sleep apnea [x] Sleep-related hypoxemia disorder [] Sleep-related hypoventilation syndrome [] Central sleep apnea [] Chronic obstructive pulmonary disease (COPD) [] Interstitial lung disease, specify: [] Pulmonary hypertension [] Hepatopulmonary syndrome [] Other causes, specify: DME Provider: Please fax results to . Lowell Pop MD, MSP, FCCP, [facility] Whipped Topping Supervisor, [facility] [place] Professor of Internal Medicine Adjunct Punch Press Operator of Neurology Division of Pulmonary, Critical Care, and Sleep Medicine [facility] This note was electronically signed on 08/08/2021. [employer] documented in this encounter Plan of Treatment Not on file documented as of this encounter Visit Diagnoses Not on filedocumented in this encounter Care Teams Caisson Worker Relationship Specialty Start Date End Date Blake Lindsey MD [address] [place] [address] PCP - General 05/20/16 documented as of this encounter
--- OUTSIDE RECORDS SUMMARY | 2024-07-29 17:21 | XMS_ITS | Encounter Summary ---
Author Organization [facility] Health Address [address] [place] [address] Care Team Providers Care Gas Operation Manager Name Role Phone Blake Lindsey MD Primary Care Provider [phone] Encounter Details Date Type Department Care Team (Late st Contact Info) Description 08/06/2021 10:20 AM RN BSN Office Visit [facility] [place] [address] [place], [place] [id number] Lowell Pop MD [address] DIV OF PULMONARY/CRITICA L [facility] [place], [place] [id number] Iron deficiency anemia, unspecified iron deficiency anemia type (Primary Dx); Vitamin B12 deficiency; Vitamin D deficiency Social History Tobacco Use Types Packs/Day Years [...] this encounter Patient Instructions * Patient Instructions* Lowell Pop MD - 08/06/2021 9:18 AM RN BSN Images from the original note were not included. [facility], First Floor [address] [place] [address] Telephone : [phone] or Medical Records BILEVEL POSITIVE AIRWAY PRESSURE ADAPTIVE SUPPORT SERVOVENTILATION (BiPAP Auto- SV) PRESCRIPTION FORM Patient Name: Park Alejandra Date of :1970 Date of Visit: 08/06/2021 Age: [age] year old Sex: female Diagnosis: [x] Central sleep apnea syndrome due to: [] Other: BiPAP Auto-SV Settings: Minimum EPAP range = 4 cmH2O Maximum EPAP range = 8/ cmH2O Minimum PS = 6 cmH2O Maximum PS = 10 cmH2O IPAP max = 25 cmH2O Back-up breath rate = Auto Interface: Brand: [] nasal pillows [] nasal mask [x] full-face mask - Airfit F30 [] fit for mask Size: [] extra-small [] small [x] medium [] large [x] Humidifier: [x] heated [] non-heated [x] Heated tubing [] Chin strap [x] Other necessary positive airway pressure therapy supplies (e.g., filters, etc.) [x] Oxygen flow rate = 3 L/min side flow via CPAP [] Overnight oximetry on above settings Lowell Pop MD, [facility], FAASM (NPI# [id number]) Forging Operator, [facility] Professor of Internal Medicine Adjunct Model Maker [employer] of Neurology Division of Pulmonary, Critical Care, and Sleep Medicine [facility] This note was electronically signed on 08/06/2021. [facility], First Floor [address] [place] [address] Telephone : [phone] Medical Records OXYGEN PRESCRIPTION FORM Patient Name: Park Alejandra Date of : 1970 Date of Order: 08/06/2021 Age: [age] year old Sex: female Diagnosis: [] Obstructive sleep apnea [x] Sleep-related hypoxemia due to: [] Sleep-related hypoventilation due to: [] Comorbidities: [] Pulmonary hypertension Prescription: [x] Oxygen flow rate At rest = ____ L/min With exertion = ____ L/min, [] Titrate to SpO2 >= 90% During sleep = ___3__ L/min [] via nasal cannula [] via oxymizer [] via CPAP [] via APAP [x] via ASV [] Overnight oximetry on above settings Lowell Pop MD, [facility], FAA (NPI#[id number]) Forging Operator, [facility] Professor of Internal Medicine Adjunct Model Maker [employer] of Neurology Division of Pulmonary, Critical Care, and Sleep Medicine [facility], First Floor [address] [place] [address] Telephone : [phone] Medical Records Patient's Name: Park Alejandra Date of : 1970 Date of Visit: 08/06/2021 POST-POLYSOMNOGRAPHY CLINIC VISIT NOTE Time allotted by [facility] for visit = 20 minutes S> The patient is a 50 year old female who follows up for suspected obstructive sleep apnea. Since the patient's last visit in Jul 2021, the patient has had no new health problems. She is always stuffy in the morning. She uses nasal sinus rinse, allergy meds, and Flonase. She already has an appointment with an ENT at the end of the month Restless legs syndrome (RLS) symptoms: [] none [x] urge to move legs: constantly moving legs; she has a tear on the right gluteal tendon for whichshe is seeing an Orthopedic surgeon Frequency: [x] paresthesia: [] creepy-crawly sensation [x] pain Timing: [] morning [] afternoon [] evening [x] night Activity: [] sitting [x] lying [] other: Relieving factors: [] walking [] massaging/rubbing legs [] stretching [] other: The patient underwent full-night therapeutic PSG with on 08/05/2021. Problems during the sleep study: none Compared to sleep at home, sleep quality during sleep study was: [] better [] worse [x] same [] different Noise during the sleep study: [x] no [] yes , describe: Room temperature: [x] comfortable [] too warm [] too cold CPAP interface used: Chanel small Problems with PAP therapy: [x] none [] excessive airflow pressure [] air leak [] coldness of the airflow [] rhinorrhea [] nasal congestion [] oronasal dryness [] facial skin abrasion [] dryness/irritation of the eyes [] chest discomfort [] aerophagia [] sinus discomfort [] claustrophobia [] difficulty exhaling [] noise Past Medical History: Diagnosis Date ??? Abnormal [...] left shoulder 09/09/2016 ??? Wears glasses 07/18/2021 Current Outpatient Medications: ??? albuterol (PROVENTIL;VENTOLIN) (2.5 [...] fluticasone propionate (FLONASE) 50 MCG/ACT nasal spray, Lena 2 sprays into each nostril once daily, [...] Disp: 22 g, Rfl: 1 ??? NYSTOP 079852 UNIT/GM powder, Apply 1 Dose to affected [...] mouth 2 times daily, Disp: , Rfl: Social History Socioeconomic History ??? Marital status: Single Spouse name: x2 ??? Number of children: 2 ??? Years of education: 14 ??? Highest education level: Associate degree: occupational, technical, or vocational program Occupational History ??? Occupation: [employer] Tobacco Use ??? 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 FLU VACCINE QUAD IIV4 SPLIT PF IM 04/05/2019 ??? FLU VACCINE TRI IIV3 SPLIT PF IM (FLUVIRIN) 04/18/2017 ??? MODERNA SARS-COV-2 COVID-19 VACCINE 0.5ML 03/31/2021, 04/30/2021 ??? PNEUMOCOCCAL PPSV23 10/30/2015 O> There were no vitals taken for this visit. Alert, communicates appropriately, no cardiopulmonary distress I have reviewed the following laboratory tests, imaging studies, and other ancillary test results as part of the medical decision-making process. Results for PARK ALEJANDRA ( ) as of 08/05/2021 13:58 Ref. Range 05/28/2021 13:52 pH Arterial Latest Ref Range: 7.35 - 7.45 pH 7.43 pCO2 Arterial Latest Ref Range: 35 - 45 mmHg 39 pO2 Arterial Latest Ref Range: 80 - 100 mmHg 86 HCO3 Arterial Latest Ref Range: 20 - 30 mmol/l 26 O2 Saturation Arterial Latest Ref Range: 90 - 100 % 98 BE Arterial Latest Ref Range: -2.0 - 2.0 mmol/L 1.6 Hemoglobin by COOX Latest Ref Range: 12.0 - 15.6 g/dL 14.5 Oxyhemoglobin Arterial Latest Units: % 95.3 O2 Content Arterial Latest Ref Range: Interpret within clinical context mg/dL 19.5 Carboxyhemoglobin Latest Ref Range: 0.0 - 2.0 % 1.7 Methemoglobin Latest Ref Range: 0.0 - 2.0 % 1.2 Deoxyhemoglobin % Latest Units: % 1.8 Results for PARK ALEJANDRA ( ) as of 08/05/2021 13:58 Ref. Range 06/05/2021 12:44 Sodium Latest Ref Range: 136 - 145 mmol/L 140 Potassium Latest Ref Range: 3.5 - 4.5 mmol/L 4.3 Chloride Latest Ref Range: 98 - 107 mmol/L 105 CO2 Latest Ref Range: 22 - 29 mmol/L 22 Anion Gap Latest Ref Range: 8 - 18 17 BUN Latest Ref Range: 7 - 26 mg/dL 19 Creatinine Latest Ref Range: 0.56 - 0.96 mg/dL 0.72 eGFR Latest Ref Range: >=90 mL/min/1.73 m2 >90 Glucose Latest Ref Range: 70 - 115 mg/dL 103 Calcium Latest Ref Range: 8.4 - 10.2 mg/dL 10.4 (H) BUN/Creatinine Ratio Latest Ref Range: 7 - 23 26 (H) Alkaline Phosphatase Latest Ref Range: 40 - 150 U/L 90 ALT Latest Ref Range: 5 - 55 U/L 18 AST Latest Ref Range: 5 - 34 U/L 20 Protein Total Latest Ref Range: 6.0 - 8.3 g/dL 8.0 Albumin Latest Ref Range: 3.4 - 5.0 g/dL 4.2 Bilirubin Total Latest Ref Range: 0.2 - 1.2 mg/dL 0.6 Osmolality Calculated Latest Ref Range: 270 - 300 mOsm/kg 293 Albumin/Globulin Ratio Latest Ref Range: 1.1 - 2.3 1.1 WBC Latest Ref Range: 3.5 - 10.5 10??3/uL 8.7 RBC Latest Ref Range: 3.80 - 5.20 10??6/uL 4.86 Hemoglobin Latest Ref Range: 12.0 - 15.6 g/dL 15.6 Hematocrit Latest Ref Range: 35.0 - 45.0 % 46.0 (H) MCV Latest Ref Range: 80.7 - 98.3 fL 94.7 MCH Latest Ref Range: 26.7 - 34.0 pg 32.1 MCHC Latest Ref Range: 30.8 - 35.9 g/dL 33.9 Platelet Count Latest Ref Range: 150 - 400 10??3/uL 231 RDW-SD Latest Ref Range: 36.0 - 50.0 fL 43.8 RDW Latest Ref Range: 11.2 - 14.8 % 12.7 MPV Latest Ref Range: 9.4 - 12.9 fL 8.8 (L) Neutrophils % Latest Ref Range: 35.0 - 70.0 % 65.8 Lymphocytes % Latest Ref Range: 20.0 - 43.0 % 22.8 Monocytes % Latest Ref Range: 5.0 - 13.0 % 6.4 Eosinophils % Latest Ref Range: 0.0 - 6.0 % 4.5 Basophils % Latest Ref Range: 0.0 - 2.0 % 0.3 Immature Granulocytes Absolute Unknown 0.02 Neutrophils Absolute Latest Ref Range: 1.6 - 7.0 10??3/uL 5.7 Lymphocyte Absolute Latest Ref Range: 1.1 - 3.9 10??3/uL 2.0 Monocytes Absolute Latest Ref Range: 0.26 - 1.07 10??3/uL 0.56 Eosinophils Absolute Latest Ref Range: 0.00 - 0.47 10??3/uL 0.39 Basophils Absolute Latest Ref Range: 0.00 - 0.08 10??3/uL 0.03 nRBC Absolute Latest Ref Range: 0 10??3/uL 0.00 nRBC Auto Latest Ref Range: 0 /100 WBC 0.0 Results for PARK ALEJANDRA ( ) as of 08/05/2021 13:58 Ref. Range 04/18/2017 03:51 04/18/2017 03:51 08/21/2018 10:25 Influenza A Rapid GILLIAN Latest Ref Range: Negative Negative Influenza B GILLIAN Rapid Latest Ref Range: Negative Negative Hepatitis B Virus Surface Antigen Latest Ref Range: Non-reactive Non-reactive Hepatitis C Antibody Latest Ref Range: Non-reactive Non-reactive Results for PARK ALEJANDRA ( ) as of 08/05/2021 13:58 Ref. Range 04/19/2017 11:33 08/21/2018 10:27 11/24/2018 13:31 01/11/2019 14:32 01/11/2019 15:03 Acetaminophen Latest Ref Range: <30.0 mcg/mL <3.0 Interpretation Ethanol Latest Ref Range: None Detected mg/dL None Detected Salicylate Latest Ref Range: 15 - 30 mg/dL <5 (L) Amphetamines Screen Urine Latest Ref Range: Negative: < 1000 ng/mL Negative Negative Negative Barbiturates Screen Urine Latest Ref Range: Negative: < 200 ng/mL Negative Negative Negative Benzodiazepine Screen Urine Latest Ref Range: Negative: < 200 ng/mL Positive (Abnormal) NegativeNegative Cannabinoids Screen Urine Latest Ref Range: Negative: <50 ng/mL Positive (Abnormal) Positive (Abnormal) Positive (Abnormal) Cocaine Metabolite Urine Latest Ref Range: Negative: < 300 ng/mL Negative Negative Negative Methadone Screen Urine Latest Ref Range: Negative: < 300 ng/mL Negative Negative Negative Opiates Urine Latest Ref Range: Negative: < 300 ng/mL Positive (Abnormal) Negative Negative Phencyclidine Screen Urine Latest Ref Range: Negative: < 25 ng/ml Negative Negative Negative Procedure: PET/CT Study (02/13/2019). ?? Referring Physician: Castillo Max ?? HISTORY: 48-year-old female with past medical history significant for stage IV classic Hodgkin's lymphoma status post chemotherapy presenting for restaging PET/CT due to concern for recurrence. Evaluate for subsequent treatment strategy. ?? TECHNIQUE: 10.69 mCi of F-18 FDG was [...] the time of injection was 117 mg/dl. ?? FINDINGS: Whole-body PET/CT from 07/16/2016 used for comparison. ?? For reference, SUV max of liver is 3.7 ?? Head and neck: There is physiological FDG activity throughout the brain parenchyma. There is a left-sided 8mm intraparotid nodule with SUV max of 2.7. No hypermetabolic or enlarged cervical lymph node is identified. ?? Chest: The heart size is normal. No pericardial effusion is present. ?? The lungs are clear of focal consolidation. No pleural effusion or focal pleural thickening is identified. There is no evidence of pneumothorax. No suspicious hypermetabolic pulmonary nodule is identified. Small area of increased FDG activity in the inferior medial aspect of the right breast with associated mild skin thickening on CT. No hypermetabolic or enlarged mediastinal, axillary, or supraclavicular lymphadenopathy is seen. ?? Abdomen and pelvis: Within the limitations of a noncontrast examination, the liver, gallbladder, spleen, pancreas, kidneys and adrenal glands are unremarkable. There is normal FDG activity throughout the small and large bowel. ?? No free air or free fluid is identified within the abdomen. There is no hypermetabolic or enlarged abdominal or pelvic lymphadenopathy. IUD present in the uterus ?? Musculoskeletal: Spinal fusion hardware seen in the lower cervical and upper thoracic spine. Unchanged from prior study. Redemonstrated lytic lesion in L5 vertebral body without focal increase in FDG uptake. ? IMPRESSION: 1. No definite PET/CT evidence of malignancy (Deauville Score 1). ?? 2. Mildly FDG avid left-sided subcentimeter intraparotid nodule. Findings may represent a benign entity such as a Warthin tumor. ?? 3. Small region of increased FDG uptake on inferior medial right breast with associated skin thickening on CT which may represent infectious/inflammatory process. Recommend clinical correlation. DATE: 03/28/2021 7:16 AM ?? EXAMINATION: Computed [...] pathologic T6 compression deformity is unchanged. 4.Cholelithiasis. ?? 05/28/2021 2:52 PM ?? EXAMINATION: Computed tomography (CT) of the chest without contrast ?? TECHNIQUE: CT of the chest was performed without contrast according to standard protocol. Then, utilizing a high-resolution algorithm, 1 mm noncontiguous axial images of the chest were obtained in inspiration and expiration. ?? Clinical Information ?? HISTORY: J96.11: Chronic respiratory failure with hypoxia U07.1: Acute respiratory failure due to COVID-19 J96.00: Acute respiratory failure due to COVID-19 ?? COMPARISON: CT angiogram chest dated 03/28/2021. ?? Findings ?? Lines/Tubes: None. ?? Lower neck and axillae: Normal. ?? Mediastinum and Radha: No enlarged lymph nodes are present. ?? Heart and Pericardium: The cardiac chambers are normal in size. No pericardial fluid or thickening is present. ?? Lung Parenchyma, Airways, and Pleural Spaces: There [...] or pneumothorax. ?? Bones and Soft Tissue: Chronic T6 compression fracture, unchanged in alignment. Instrumented posterior spinal fusion partially visualized. No new fractures are identified. ?? Upper Abdomen: Multiple gallstones are present within the gallbladder. Otherwise, the visualized abdomen is unremarkable. ? Impression: ?? Peripheral, posterior predominant fine reticular opacities throughout the bilateral upper and lower lobes with subpleural sparing, 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 Interval resolution of groundglass opacities may reflect resolution of acute inflammatory component. 2d echo (03/28/2021): Left ventricular systolic function is [...] pain noted. Pharmacologic stress echocardiogram is normal. Full-night therapeutic PSG peformed on 08/05/2021 showed: Therapeutic: ASV at maximal setting of: EPAP min pressure = 4 cmH2O EPAP max pressure = 8 cmH2O PS min = 6 cmH2O PS max = 10 cmH2O + O2 at 3 L/min side flow AHI = 1/hr RERAI = 17.6/h PLMI = 87.5/h minSpO2 = 81% Time spent with SpO2 < 90% = 29.6% of total therapeutic sleep time ASSESSMENT: 1. History of obstructive sleep apnea 2. .Sleep-related hypoxemia; cannot rule out sleep-related hypoventilation as cause of hypoxemia since capnography was not performed. 3. ASV at maximal setting of: EPAP min pressure = 4 cmH2O EPAP max pressure = 8 cmH2O PS min = 6 cmH2O PS max = 10 cmH2O + O2 at 3 L/min side flow Was effective in ameliorating apneas, hypopneas and hypoxemia but was assoc with persistence of RERAs 4. Painful restless legs syndrome (RLS) with severely elevated PLMI 5. History of anxiety 6. History of depression 7. History of PTSD 8. History of cannabinoid use 9. History of chronic rhinitis 10. Interstitial lung disease, prob NSIP 11. History of COVID-19 in January 2021 12. History of GERD 13. History of non-Hodgkins lymphoma 14. Obesity, mild PLAN: Diagnostic: 1. Start automatic bilevel positive airway pressure (Auto BPAP) therapeutic trial as follows: ASV at maximal setting of: EPAP min pressure = 4 cmH2O EPAP max pressure = 8 cmH2O PS min = 6 cmH2O PS max = 10 cmH2O + O2 at 3 L/min side flow 2. Restless legs syndrome (RLS) work-up: A. Serum iron, ferritin, transferrin saturation B. Serum vitamin B12, methylmalonic acid level C. Serum viitamin D level Therapeutic: 1. Weight loss through healthy eating and exercise. Exercise (e.g., walking) up to 30-60 minutes 3-5 days a week. Eat more fruits, vegetables, beans, nuts, seeds, whole grains, etc. Avoid or minimizemeat, dairy, eggs, fast food, processed foods, or refined carbohydrates. Avoid or minimize salt intake. 2. I explained the results of the sleep study to the patient. 3. I discussed the mechanism of HECTOR as well as the possible adverse health effects as follows: A. Excessive daytime sleepiness B. Tiredness C. Difficulty falling asleep D. Depressed mood E. Motor vehicle accidents F. High blood pressure G. Diabetes mellitus H. Heart disease/heart failure I. Arrhythmia J. Stroke K. Pulmonary hypertension L. 4. Continue medications as per Pulmonary Clinic Follow-up: [] Post-PSG Clinic c/o Dr. Pop. [x] [facility] in 4 weeks at the CPAP Adherence Clinic. Lowell Pop MD, [facility], [facility], [facility] Forging Operator, [facility] Professor of Internal Medicine Adjunct Model Maker [employer] of Neurology Division of Pulmonary, Critical Care, and Sleep Medicine [facility] This note was electronically signed on 08/05/2021. BSN documented in this encounter Progress Notes * Lowell Pop MD - 08/06/2021 10:20 AM CST Images from the original note were not included. [facility], First Floor [address] [place] [address] Telephone : [phone] Medical Records Patient's Name: Park Alejandra Date of : 1970 Date of Visit: 08/06/2021 POST-POLYSOMNOGRAPHY CLINIC VISIT NOTE Time allotted by Tony for visit = 20 minutes S> The patient is a 50 year old female who follows up for suspected obstructive sleep apnea. Since the patient's last visit in Jul 2021, the patient has had no new health problems. She is always stuffy in the morning. She uses nasal sinus rinse, allergy meds, and Flonase. She already has an appointment with an ENT at the end of the month Restless legs syndrome (RLS) symptoms: [] none [x] urge to move legs: constantly moving legs; she has a tear on the right gluteal tendon for whichshe is seeing an Orthopedic surgeon Frequency: [x] paresthesia: [] creepy-crawly sensation [x] pain Timing: [] morning [] afternoon [] evening [x] night Activity: [] sitting [x] lying [] other: Relieving factors: [] walking [] massaging/rubbing legs [] stretching [] other: The patient underwent full-night therapeutic PSG with on 08/05/2021. Problems during the sleep study: none Compared to sleep at home, sleep quality during sleep study was: [] better [] worse [x] same [] different Noise during the sleep study: [x] no [] yes , describe: Room temperature: [x] comfortable [] too warm [] too cold CPAP interface used: Chanel small Problems with PAP therapy: [x] none [] excessive airflow pressure [] air leak [] coldness of the airflow [] rhinorrhea [] nasal congestion [] oronasal dryness [] facial skin abrasion [] dryness/irritation of the eyes [] chest discomfort [] aerophagia [] sinus discomfort [] claustrophobia [] difficulty exhaling [] noise Past Medical History: Diagnosis Date ??? Abnormal levels of other serum enzymes 12/22/2012 - trending down, near baseline - all other liver enzymes and bili wnl ??? Acromioclavicular joint arthritis 09/09/2016 ??? Acute respiratory failure due to COVID-01/2021 ??? Alkaline phosphatase elevation 12/19/2012 Overview: - [...] ??? COPD (chronic obstructive pulmonary disease) ??? COVID-01/2021 hospitalized February 07-, on oxygen for about [...] left shoulder 09/09/2016 ??? Wears glasses 07/18/2021 Current Outpatient Medications: ??? albuterol (PROVENTIL;VENTOLIN) (2.5 [...] fluticasone propionate (FLONASE) 50 MCG/ACT nasal spray, Lena 2 sprays into each nostril once daily, [...] Disp: 22 g, Rfl: 1 ??? NYSTOP [id number] UNIT/GM powder, Apply 1 Dose to affected [...] mouth 2 times daily, Disp: , Rfl: Social History Socioeconomic History ??? Marital status: Single Spouse name: x2 ??? Number of children: 2 ??? Years of education: 14 ??? Highest education level: Associate degree: occupational, technical, or vocational program Occupational History ??? Occupation: [employer] Tobacco Use ??? 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 FLU VACCINE QUAD IIV4 SPLIT PF IM 04/05/2019 ??? FLU VACCINE TRI IIV3 SPLIT PF IM (FLUVIRIN) 04/18/2017 ??? MODERNA SARS-COV-2 COVID-19 VACCINE 0.5ML 03/31/2021, 04/30/2021 ??? PNEUMOCOCCAL PPSV23 10/30/2015 O> There were no vitals taken for this visit. Alert, communicates appropriately, no cardiopulmonary distress I have reviewed the following laboratory tests, imaging studies, and other ancillary test results as part of the medical decision-making process. Results for PARK ALEJANDRA ( ) as of 08/05/2021 13:58 Ref. Range 05/28/2021 13:52 pH Arterial Latest Ref Range: 7.35 - 7.45 pH 7.43 pCO2 Arterial Latest Ref Range: 35 - 45 mmHg 39 pO2 Arterial Latest Ref Range: 80 - 100 mmHg 86 HCO3 Arterial Latest Ref Range: 20 - 30 mmol/l 26 O2 Saturation Arterial Latest Ref Range: 90 - 100 % 98 BE Arterial Latest Ref Range: -2.0 - 2.0 mmol/L 1.6 Hemoglobin by COOX Latest Ref Range: 12.0 - 15.6 g/dL 14.5 Oxyhemoglobin Arterial Latest Units: % 95.3 O2 Content Arterial Latest Ref Range: Interpret within clinical context mg/dL 19.5 Carboxyhemoglobin Latest Ref Range: 0.0 - 2.0 % 1.7 Methemoglobin Latest Ref Range: 0.0 - 2.0 % 1.2 Deoxyhemoglobin % Latest Units: % 1.8 Results for PARK ALEJANDRA ( ) as of 08/05/2021 13:58 Ref. Range 06/05/2021 12:44 Sodium Latest Ref Range: 136 - 145 mmol/L 140 Potassium Latest Ref Range: 3.5 - 4.5 mmol/L 4.3 Chloride Latest Ref Range: 98 - 107 mmol/L 105 CO2 Latest Ref Range: 22 - 29 mmol/L 22 Anion Gap Latest Ref Range: 8 - 18 17 BUN Latest Ref Range: 7 - 26 mg/dL 19 Creatinine Latest Ref Range: 0.56 - 0.96 mg/dL 0.72 eGFR Latest Ref Range: >=90 mL/min/1.73 m2 >90 Glucose Latest Ref Range: 70 - 115 mg/dL 103 Calcium Latest Ref Range: 8.4 - 10.2 mg/dL 10.4 (H) BUN/Creatinine Ratio Latest Ref Range: 7 - 23 26 (H) Alkaline Phosphatase Latest Ref Range: 40 - 150 U/L 90 ALT Latest Ref Range: 5 - 55 U/L 18 AST Latest Ref Range: 5 - 34 U/L 20 Protein Total Latest Ref Range: 6.0 - 8.3 g/dL 8.0 Albumin Latest Ref Range: 3.4 - 5.0 g/dL 4.2 Bilirubin Total Latest Ref Range: 0.2 - 1.2 mg/dL 0.6 Osmolality Calculated Latest Ref Range: 270 - 300 mOsm/kg 293 Albumin/Globulin Ratio Latest Ref Range: 1.1 - 2.3 1.1 WBC Latest Ref Range: 3.5 - 10.5 10??3/uL 8.7 RBC Latest Ref Range: 3.80 - 5.20 10??6/uL 4.86 Hemoglobin Latest Ref Range: 12.0 - 15.6 g/dL 15.6 Hematocrit Latest Ref Range: 35.0 - 45.0 % 46.0 (H) MCV Latest Ref Range: 80.7 - 98.3 fL 94.7 MCH Latest Ref Range: 26.7 - 34.0 pg 32.1 MCHC Latest Ref Range: 30.8 - 35.9 g/dL 33.9 Platelet Count Latest Ref Range: 150 - 400 10??3/uL 231 RDW-SD Latest Ref Range: 36.0 - 50.0 fL 43.8 RDW Latest Ref Range: 11.2 - 14.8 % 12.7 MPV Latest Ref Range: 9.4 - 12.9 fL 8.8 (L) Neutrophils % Latest Ref Range: 35.0 - 70.0 % 65.8 Lymphocytes % Latest Ref Range: 20.0 - 43.0 % 22.8 Monocytes % Latest Ref Range: 5.0 - 13.0 % 6.4 Eosinophils % Latest Ref Range: 0.0 - 6.0 % 4.5 Basophils % Latest Ref Range: 0.0 - 2.0 % 0.3 Immature Granulocytes Absolute Unknown 0.02 Neutrophils Absolute Latest Ref Range: 1.6 - 7.0 10??3/uL 5.7 Lymphocyte Absolute Latest Ref Range: 1.1 - 3.9 10??3/uL 2.0 Monocytes Absolute Latest Ref Range: 0.26 - 1.07 10??3/uL 0.56 Eosinophils Absolute Latest Ref Range: 0.00 - 0.47 10??3/uL 0.39 Basophils Absolute Latest Ref Range: 0.00 - 0.08 10??3/uL 0.03 nRBC Absolute Latest Ref Range: 0 10??3/uL 0.00 nRBC Auto Latest Ref Range: 0 /100 WBC 0.0 Results for PARK ALEJANDRA ( ) as of 08/05/2021 13:58 Ref. Range 04/18/2017 03:51 04/18/2017 03:51 08/21/2018 10:25 Influenza A Rapid GILLIAN Latest Ref Range: Negative Negative Influenza B GILLIAN Rapid Latest Ref Range: Negative Negative Hepatitis B Virus Surface Antigen Latest Ref Range: Non-reactive Non-reactive Hepatitis C Antibody Latest Ref Range: Non-reactive Non-reactive Results for SRINIVASGUERREROPARK ( ) as of 08/05/2021 13:58 Ref. Range 04/19/2017 11:33 08/21/2018 10:27 11/24/2018 13:31 01/11/2019 14:32 01/11/2019 15:03 Acetaminophen Latest Ref Range: <30.0 mcg/mL <3.0 Interpretation Ethanol Latest Ref Range: None Detected mg/dL None Detected Salicylate Latest Ref Range: 15 - 30 mg/dL <5 (L) Amphetamines Screen Urine Latest Ref Range: Negative: < 1000 ng/mL Negative Negative Negative Barbiturates Screen Urine Latest Ref Range: Negative: < 200 ng/mL Negative Negative Negative Benzodiazepine Screen Urine Latest Ref Range: Negative: < 200 ng/mL Positive (Abnormal) NegativeNegative Cannabinoids Screen Urine Latest Ref Range: Negative: <50 ng/mL Positive (Abnormal) Positive (Abnormal) Positive (Abnormal) Cocaine Metabolite Urine Latest Ref Range: Negative: < 300 ng/mL Negative Negative Negative Methadone Screen Urine Latest Ref Range: Negative: < 300 ng/mL Negative Negative Negative Opiates Urine Latest Ref Range: Negative: < 300 ng/mL Positive (Abnormal) Negative Negative Phencyclidine Screen Urine Latest Ref Range: Negative: < 25 ng/ml Negative Negative Negative Procedure: PET/CT Study (02/13/2019). ?? Referring Physician: Castillo Max ?? HISTORY: 48-year-old female with past medical history significant for stage IV classic Hodgkin's lymphoma status post chemotherapy presenting for restaging PET/CT due to concern for recurrence. Evaluate for subsequent treatment strategy. ?? TECHNIQUE: 10.69 mCi of F-18 FDG was [...] the time of injection was 117 mg/dl. ?? FINDINGS: Whole-body PET/CT from 07/16/2016 used for comparison. ?? For reference, SUV max of liver is 3.7 ?? Head and neck: There is physiological FDG activity throughout the brain parenchyma. There is a left-sided 8mm intraparotid nodule with SUV max of 2.7. No hypermetabolic or enlarged cervical lymph node is identified. ?? Chest: The heart size is normal. No pericardial effusion is present. ?? The lungs are clear of focal consolidation. No pleural effusion or focal pleural thickening is identified. There is no evidence of pneumothorax. No suspicious hypermetabolic pulmonary nodule is identified. Small area of increased FDG activity in the inferior medial aspect of the right breast with associated mild skin thickening on CT. No hypermetabolic or enlarged mediastinal, axillary, or supraclavicular lymphadenopathy is seen. ?? Abdomen and pelvis: Within the limitations of a noncontrast examination, the liver, gallbladder, spleen, pancreas, kidneys and adrenal glands are unremarkable. There is normal FDG activity throughout the small and large bowel. ?? No free air or free fluid is identified within the abdomen. There is no hypermetabolic or enlarged abdominal or pelvic lymphadenopathy. IUD present in the uterus ?? Musculoskeletal: Spinal fusion hardware seen in the lower cervical and upper thoracic spine. Unchanged from prior study. Redemonstrated lytic lesion in L5 vertebral body without focal increase in FDG uptake. ? IMPRESSION: 1. No definite PET/CT evidence of malignancy (Deauville Score 1). ?? 2. Mildly FDG avid left-sided subcentimeter intraparotid nodule. Findings may represent a benign entity such as a Warthin tumor. ?? 3. Small region of increased FDG uptake on inferior medial right breast with associated skin thickening on CT which may represent infectious/inflammatory process. Recommend clinical correlation. DATE: 03/28/2021 7:16 AM ?? EXAMINATION: Computed [...] pathologic T6 compression deformity is unchanged. 4.Cholelithiasis. ?? 05/28/2021 2:52 PM ?? EXAMINATION: Computed tomography (CT) of the chest without contrast ?? TECHNIQUE: CT of the chest was performed without contrast according to standard protocol. Then, utilizing a high-resolution algorithm, 1 mm noncontiguous axial images of the chest were obtained in inspiration and expiration. ?? Clinical Information ?? HISTORY: J96.11: Chronic respiratory failure with hypoxia U07.1: Acute respiratory failure due to COVID-19 J96.00: Acute respiratory failure due to COVID-19 ?? COMPARISON: CT angiogram chest dated 03/28/2021. ?? Findings ?? Lines/Tubes: None. ?? Lower neck and axillae: Normal. ?? Mediastinum and Radha: No enlarged lymph nodes are present. ?? Heart and Pericardium: The cardiac chambers are normal in size. No pericardial fluid or thickening is present. ?? Lung Parenchyma, Airways, and Pleural Spaces: There [...] or pneumothorax. ?? Bones and Soft Tissue: Chronic T6 compression fracture, unchanged in alignment. Instrumented posterior spinal fusion partially visualized. No new fractures are identified. ?? Upper Abdomen: Multiple gallstones are present within the gallbladder. Otherwise, the visualized abdomen is unremarkable. ? Impression: ?? Peripheral, posterior predominant fine reticular opacities throughout the bilateral upper and lower lobes with subpleural sparing, 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 Interval resolution of groundglass opacities may reflect resolution of acute inflammatory component. 2d echo (03/28/2021): Left ventricular systolic function is [...] pain noted. Pharmacologic stress echocardiogram is normal. Full-night therapeutic PSG peformed on 08/05/2021 showed: Therapeutic: ASV at maximal setting of: EPAP min pressure = 4 cmH2O EPAP max pressure = 8 cmH2O PS min = 6 cmH2O PS max = 10 cmH2O + O2 at 3 L/min side flow AHI = 1/hr RERAI = 17.6/h PLMI = 87.5/h minSpO2 = 81% Time spent with SpO2 < 90% = 29.6% of total therapeutic sleep time ASSESSMENT: 1. History of obstructive sleep apnea 2. .Sleep-related hypoxemia; cannot rule out sleep-related hypoventilation as cause of hypoxemia since capnography was not performed. 3. ASV at maximal setting of: EPAP min pressure = 4 cmH2O EPAP max pressure = 8 cmH2O PS min = 6 cmH2O PS max = 10 cmH2O + O2 at 3 L/min side flow Was effective in ameliorating apneas, hypopneas and hypoxemia but was assoc with persistence of RERAs 4. Painful restless legs syndrome (RLS) with severely elevated PLMI 5. History of anxiety 6. History of depression 7. History of PTSD 8. History of cannabinoid use 9. History of chronic rhinitis 10. Interstitial lung disease, prob NSIP 11. History of COVID-19 in January 2021 12. History of GERD 13. History of non-Hodgkins lymphoma 14. Obesity, mild PLAN: Diagnostic: 1. Start automatic bilevel positive airway pressure (Auto BPAP) therapeutic trial as follows: ASV at maximal setting of: EPAP min pressure = 4 cmH2O EPAP max pressure = 8 cmH2O PS min = 6 cmH2O PS max = 10 cmH2O + O2 at 3 L/min side flow 2. Restless legs syndrome (RLS) work-up: A. Serum iron, ferritin, transferrin saturation B. Serum vitamin B12, methylmalonic acid level C. Serum viitamin D level Therapeutic: 1. Weight loss through healthy eating and exercise. Exercise (e.g., walking) up to 30-60 minutes 3-5 days a week. Eat more fruits, vegetables, beans, nuts, seeds, whole grains, etc. Avoid or minimizemeat, dairy, eggs, fast food, processed foods, or refined carbohydrates. Avoid or minimize salt intake. 2. I explained the results of the sleep study to the patient. 3. I discussed the mechanism of HECTOR as well as the possible adverse health effects as follows: A. Excessive daytime sleepiness B. Tiredness C. Difficulty falling asleep D. Depressed mood E. Motor vehicle accidents F. High blood pressure G. Diabetes mellitus H. Heart disease/heart failure I. Arrhythmia J. Stroke K. Pulmonary hypertension L. 4. Continue medications as per Pulmonary Clinic Follow-up: [] Post-PSG Clinic c/o Dr. Pop. [x] [facility] in 4 weeks at the [facility]. Lowell Pop MD, [facility], [facility] Forging Operator, [facility] [place] Professor of Internal Medicine Adjunct Model Maker [employer] of Neurology Division of Pulmonary, Critical Care, and Sleep Medicine [facility] This note was electronically signed on 08/05/2021. BSN * Lowell Pop MD - 08/06/2021 9:17 AM CST [facility], First Floor [address] [facility], [place] [address] Telephone : [phone] Medical Records OXYGEN PRESCRIPTION FORM Patient Name: Park Alejandra Date of : 1970 Date of Order: 08/06/2021 Age: [age] year old Sex: female Diagnosis: [] Obstructive sleep apnea [x] Sleep-related hypoxemia due to: [] Sleep-related hypoventilation due to: [] Comorbidities: [] Pulmonary hypertension Prescription: [x] Oxygen flow rate At rest = ____ L/min With exertion = ____ L/min, [] Titrate to SpO2 >= 90% During sleep = ___3__ L/min [] via nasal cannula [] via oxymizer [] via CPAP [] via APAP [x] via ASV [] Overnight oximetry on above settings Lowell Pop MD, [facility], [facility] (NPI#[id number]) Forging Operator, [facility] [place] Professor of Internal Medicine Adjunct Model Maker [employer] of Neurology Division of Pulmonary, Critical Care, and Sleep Medicine [facility] BSN * Lowell Pop MD - 08/06/2021 9:16 AM CST [facility], First Floor [address] [place] [address] Telephone : [phone] or Medical Records BILEVEL POSITIVE AIRWAY PRESSURE ADAPTIVE SUPPORT SERVOVENTILATION (BiPAP Auto- SV) PRESCRIPTION FORM Patient Name: Park Alejandra Date of :1970 Date of Visit: 08/06/2021 Age: [age] year old Sex: female Diagnosis: [x] Central sleep apnea syndrome due to: [] Other: BiPAP Auto-SV Settings: Minimum EPAP range = 4 cmH2O Maximum EPAP range = 8/ cmH2O Minimum PS = 6 cmH2O Maximum PS = 10 cmH2O IPAP max = 25 cmH2O Back-up breath rate = Auto Interface: Brand: [] nasal pillows [] nasal mask [x] full-face mask - Airfit F30 [] fit for mask Size: [] extra-small [] small [x] medium [] large [x] Humidifier: [x] heated [] non-heated [x] Heated tubing [] Chin strap [x] Other necessary positive airway pressure therapy supplies (e.g., filters, etc.) [x] Oxygen flow rate = 3 L/min side flow via CPAP [] Overnight oximetry on above settings Lowell Pop MD, [facility], [facility] (NPI# [id number]) Forging Operator, [facility] [place] Professor of Internal Medicine Adjunct Model Maker [employer] of Neurology Division of Pulmonary, Critical Care, and Sleep Medicine [facility] This note was electronically signed on 08/06/2021. BSN documented in this encounter Plan of Treatment Not on file documented as of this encounter Results * METHYLMALONIC ACID BLOOD (08/13/2021 3:47 PM RN BSN) [facility] Methylmalonic Acid 0.15 0.00 - 0.40 umol/L 08/17/2021 1:08 PM RN BSN [email or web address] ([facility]) Comment: INTERPRETIVE INFORMATION: MMA Serum/Plasma, ?Vitamin B12 Status This test was developed and its performance characteristics determined by [email or web address]. It has not been cleared or approved by the [place] Food and Drug Administration. This test was performed in a CLIA certified laboratory and is intended for clinical purposes. Performed By: [email or web address] [address] [place], [place] [id number] [employer] Referee: Karol Bowen MD Blood BLOOD SPECIMEN / Unknown Lab Venipuncture / Unknown 08/13/2021 3:47 PM RN BSN 08/13/2021 4:16 PM RN BSN Lowell Pop MD LAB - CHEMISTRY ORD ERABLES [employer] ([facility]) [address] [place], [place] [id number] [place] [address] * (ABNORMAL) VITAMIN B12 (08/13/2021 3:47 PM RN BSN) Pathologist [facility] Vitamin B12 989(H) 213 - 816 pg/mL 08/13/2021 5:03 PM RN BSN [facility] Blood BLOOD SPECIMEN / Unknown Lab Venipuncture / Unknown 08/13/2021 3:47 PM RN BSN 08/13/2021 4:14 PM RN BSN Lowell Pop MD LAB - CHEMISTRY ORD ERABLES [facility] [address] [place] [address], [facility] [phone] * VITAMIN D 25-HYDROXY (08/13/2021 3:47 PM RN BSN) [facility] Vitamin D, 25 Hydroxy 31.0 30.0 - 80.0 ng/mL 08/13/2021 5:03 PM [facility] Comment: The recommendations for 25-Hydroxy Vitamin [...] Lab Venipuncture / Unknown 08/13/2021 3:47 PM RN BSN 08/13/2021 4:14 PM RN BSN Lowell Pop MD LAB - CHEMISTRY ORD ERABLES Performing Organization Address City/[facility]/ZIP Co de Phone Number [facility] [address] [place] [address], [place] [phone] * FERRITIN (08/13/2021 3:47 PM RN BSN) Ferritin 39 13 - 204 ng/mL 08/13/2021 4:57 PM RN BSN [facility] Blood BLOOD SPECIMEN / Unknown Lab Venipuncture / Unknown 08/13/2021 3:47 PM RN BSN 08/13/2021 4:16 PM RN BSN Lowell Pop MD LAB - CHEMISTRY ORD ERABLES Performing Organization Address [facility]/ZIP Co de Phone Number [address] [address], [place] [phone] documented in this encounter Visit Diagnoses Diagnosis Iron deficiency anemia, unspecified iron deficiency anemia type- Primary Vitamin B12 deficiency Other B-complex deficiencies Vitamin D deficiency documented in this encounter Care Teams Gas Operation Manager Relationship Specialty Start Date End Date Blake Lindsey MD [address] [place] [address] PCP - General 05/20/16 documented as of this encounter
--- OUTSIDE RECORDS SUMMARY | 2024-07-29 17:22 | XMS_ITS | Encounter Summary ---
Author Organization [facility] Health Address [address] [facility] [place] [address] Care Team Providers Care Skates Operator Name Role Phone Blake [place] MD Primary Care Provider Reason for Visit * Reason Comments Pain Knee left knee pain * Evaluate & Treat (Routine) - Closed Specialty Diagnoses / Procedures Referred By Contact Referred To Contact Physician Associate Professor Of Law / Orthopedics Blake [place] MD [address] [place] [address] Corrina Peralta PA-C [facility] [place] [address] Referral ID Status Reason Start Date Expiration Date Visits Re quested Visits Authorized [id number] Closed 01/25/2019 07/24/2019 1 1 Encounter Details Date Type Department Care Team (Latest Contact Info) Description 01/25/2019 10:15 AM CDT Office Visit [facility] - Orthopedics [address] [facility] [place] [address] Corrina Peralta PA-C [address] [place] [phone] Primary osteoarthritis of left knee (Primary Dx) Social History Tobacco Use Types Packs/Day Years Used Date Smoking Tobacco: Former Cigarettes Q uit: 11/30/1997 Smokeless Tobacco: Never Alcohol Use Standard Drinks/Week Comments Yes 0.8 (1 standard drink = 0.6 oz p ure alcohol) Sex and Gender Information Value Date Recorded Sex Assigned at Female 05/06/2024 9:07 AM CDT Gender Identity Female 05/06/2024 9:07 AM CDT Sexual Orientation Straight 05/06/2024 9: 07 AM CDT documented as of this encounter Last Filed Vital Signs Vital Sign Reading Time Taken Comments Blood Pressure - - Pulse - - Temperature - - Respiratory Rate - - Oxygen Saturation - - Inhaled Oxygen Concentration - - Weight 94.3 kg (208 lb) 01/25/2019 10:06 AM CDT Height 160 cm (5' 3 ) 01/25/2019 10:06 AM CDT Body Mass Index 36.85 01/25/2019 10:06 AM CDT documented in this encounter Functional [...] this encounter Patient Instructions * Patient Instructions* Corrnia Peralta PA-C - 01/25/2019 11:33 AM CDT [facility] Department of Orthopaedic Surgery Orthopaedic Clinic Discharge Form Lakeisha Alejandra 01/25/2019 Thank you for coming in to see us today for your diagnosis of: Primary osteoarthritis of left knee - Plan: XR KNEE LEFT 4VW OR MORE Activity Restrictions: as tolerated Medications Prescribed: none Special Studies/Labs to be completed: none We recommend that you try the following for your injury: physical therapy exercises, anti-inflammatory medications, corticosteroid injection given in clinictoday, tylenol, activity modification, weight loss and icing 20 minutes at a time 3 to 5 times daily Recommend 2000 units Vitamin D daily for bone health May try 1500 to 2000 mg Glucosamine/chondriotin/MSM daily for joint pain Medications over the counter: - Acetaminophen (Tylenol) 500mg 1-2 tablets every 6 hours as needed for pain, not exceeding daily total of 3000mg. Please note that narcotic medications can consist of same ingredient. - Ibuprofen (Advil) 200mg 1-3 tablets every 8 hours as needed for pain, not exceeding daily total of 2400mg OR Naproxen (Aleve) 220mg 1-2 tablets every 12 hours as needed for pain. Take with food or milk to prevent stomach upset. Do not take any other NSAIDs while taking this medication. Follow up: as needed. Injections may be repeated in 3-4 months if needed If non-operative management, including physical therapy/home exercises, activity modification, heat/icing, NSAIDs and/or tylenol, corticosteroid injections, weight loss, fails to provide adequate relief of symptoms, follow up with Dr. Martell, to further discuss operative vs non-operative intervention Lakeisha Alejandra had a clinic appointment on 01/25/2019. Please contact our office to make an appointment if your symptoms are not improving, or if something about your condition significantly changes. [facility] Orthopaedic office contact information: [facility] ; select option 1 to make, change or cancel an appointment OR leave voicemail with Anisha Goldberg RN at [phone] with any questions/concerns. [address] [place] [id number] [place] [address] [place] [address], [address], [place] [address] Contact [facility] [employer] [facility] to explore weight loss options. Website: [email or web address] [facility] Weight management Services offers both surgical and non-surgical weight-loss options to treat obesity. Whether you need to make long-term lifestyle changes or small habit adjustments, our team of specially- trainedphysicians and clinicians will support you on your journey to wellness. OR Contact [facility] in [place] Weight Loss Surgery Website: [email or web address] documented in this encounter Progress Notes * Corrina Peralta PA-C - 01/25/2019 10:52 AM CDT [facility] [address] [facility] [address] Dept: [phone] Dept Today we had the pleasure of seeing Lakeisha Alejandra in our [facility] Orthopaedic Surgery Clinic for Chief Complaint Patient presents with ??? Pain Knee left knee pain Lakeisha Alejandra is a 48 year old female who has left knee pain due to OA. Pain is located to the medial knee. she has a history of left knee arthroscopic surgery in 2007 and right knee arthroscopic surgery in 2008. Associated with pain are symptoms of swelling. She denies instability. Symptoms areexacerbated by weight bearing activity. Factors which relieve the pain include rest. she is taking nothing for pain. she ambulates with cane prn. she has done physical therapy. she has done left kneesteroid injection. Last injection was in 2017. Pain Assessment Pain Score: Ten Work: disability Current Smoker: no Past Medical History: Diagnosis Date ??? COPD (chronic obstructive pulmonary disease) ??? High cholesterol ??? Migraine Past Surgical History: Procedure Laterality Date ??? Back Surgery ??? BIOPSY ??? HX SPINAL FUSION ??? TX FEMUR/KNEE SURG UNLISTED both knees ??? LUTHER TOOTH EXTRACTION Family History Problem Relation Age of Onset ??? Heart Disease Mother Status: Alive ??? Diabetes Mother ??? Hypertension Mother ??? Cancer Father Status: Alive ??? Heart Disease Father ??? None Known Brother Status: Alive History Smoking Status ??? Former Smoker ??? Packs/day: 1.00 ??? Quit date: 11/30/1997 Smokeless Tobacco ??? Never Used Focused ROS includes: Enodcrine Diabetes Mellitus: Not Applicable Thyroid disorders: no Pulmonary COPD: yes Asthma: yes Other: negative Cardiac History of CHF: no History of W[place]: no Previous PCI / PTCA: no Previous Cardiac Surgery: no Hypertension requires meds: no Vascular Known peripheral vascular disease: no Central Nervous System History of TIA's: no CVA: No History of Cancer of any kind: yes: hodgkin lymphoma with possible recurrence Bleeding disorders: thrombocytopenia Other significant health issues are: depression Physical Examination Vitals: 01/25/19 1006 Weight: 208 lb (94.3 kg) Height: 5' 3 (1.6 m) Estimated body mass index is 36.85 kg/(m^2) as calculated from the following: Height as of this encounter: 5' 3 (1.6 m). Weight as of this encounter: 208 lb (94.3 kg). she is awake, alert, oriented and they are pleasant to speak with. There is no pain with rotation of the right or left hip. There is a negative straight leg raise bilaterally. Gait is limping. Evaluation of the uninjured right knee notes no skin lesions, neurovascularly intact. There is no tendernes s/swelling/deformity. Ligamentously stable. Full range of motion. Good strength. Left lower extremity: There is an effusion. There is tenderness of the medial joint line and lateral joint line. Tay is negative. There is grade 1 varus laxity . Thereis grade 1 valgus laxity. There is grade 0 posterior sag. McMurrays test is n/a. ROM is from 5 degrees of extension to 120 degreesof flexion. The patient does have significant pain with these ranges of motion. The extensor mechanism is intact. There is not a palpable gap in the patellar and quadriceps tendons. The patellar tracks well. Patellar apprehension test is negative. Quadriceps strength is 4/5. There is not quadriceps atrophy present. intactEHL/FHL/GS/AT, Sensation: intact to light touch distally in L4, L5, S1 distributions, Brisk capillary refill (<2 sec). Erythema: none. Warmth: none. Crepitus: none. Radiographs were reviewed by me in office: plain films left knee: mild tricompartmental degenerative changes, most noted medially . Impression: Left knee OA Plan: The patient was counseled as to her diagnosis and demonstrated understanding. 1. Restrictions: none 2. Left knee corticosteroid injection was given in office. Recommend icing for 20 minutes 3-5 timesa day for the first 48 hours and then as needed for pain. 3. Discussed resuming physical therapy, she declines. Discussed importance of developing a home exercise program. 4. Medication prescribed: none. Continue otc NSAIDs and/or tylenol as needed for pain. 5. Patient was counseled as to the following conservative interventions: - Recommend 2000 units Vitamin D daily for bone health - May try 1500 to 2000 mg Glucosamine/chondriotin/MSM daily for joint pain. - The patient was counseled as to the benefits of weight loss. Information provided for [facility] Weight Loss Management services - she was informed about the use of ambulatory assistive devices. 6. F/U as needed. Injections may be repeated in 3-4 months if needed. If non- operative management, including physical therapy/home exercises, activity modification, heat/icing, NSAIDs and/or tylenol,corticosteroid injections, weight loss, fails to provide adequate relief of symptoms, follow up with Dr. Martell, Dr. Clark or Dr. Guerra to further discuss operative vs non-operative intervention Corrina Peralta PA-C documented in this encounter Procedure Notes * Corrina Peralta PA-C - 01/25/2019 12:36 PM CDTAssociated Order(s): PROCDOC LARGE JOINT INJECTION Procedure(s): TX DRAIN/INJECT LARGE JOINT/BURSA Pre-Procedure Diagnose(s): Primary osteoarthritis of left knee Orthopaedic Surgery Procedure Note Diagnosis: Left knee [...] note. Corrina Peralta PA-C 01/25/2019 12:36 PM documented in this encounter Plan of Treatment Not on file documented as of this encounter Procedures Procedure Name Priority Date/Time Associated Diagnosis Comments TX DRAIN/INJECT LARGE JOINT/BURSA Routine 01/25/2019 4:31 PM CDT Primary osteoarthritis of left knee documented in this encounter Results * TX DRAIN/INJECT LARGE JOINT/BURSA (01/25/2019 4:31 PM CDT) Narrative Corrina Peralta PA-C - 01/25/2019 4:31 PM CDT Corrina [...] 4VW OR MORE (01/25/2019 11:10 AM CDT) Anatomical Region Laterality Modality Lower Extremity Radiographic Jonna ging 01/25/2019 11:3 1 AM CDT Impressions 01/25/2019 11:33 AM CDT IMPRESSION: Minimal degenerative change. This report was electronically signed by EMIL MALONE MD ??on 01/25/2019 11:33 AM . Narrative 01/25/2019 11:33 AM CDT Exam: ??XR KNEE LEFT 4VW History: ??left knee pain Comparison: 09/09/2016. Findings: No fracture or dislocation is present. The joint spaces are normal. There is minimal degenerative change without joint space narrowing. No effusion is seen. Procedure Note Emil Malone MD - 01/25/2019 Exam: XR KNEE LEFT 4VW History: left knee pain Comparison: 09/09/2016. Findings: No fracture or dislocation is present. The joint spaces are normal.There is minimal degenerative change without joint space narrowing. Noeffusion is seen. IMPRESSION: Minimal degenerative change. This report was electronically signed by EMIL MALONE MD on01/25/2019 11:33 AM . Corrina Peralta PA-C DIAGNOSTIC IMAG ING ORDERABLES documented in this encounter Visit Diagnoses Diagnosis Primary osteoarthritis of left knee- Primary Primary localized osteoarthrosis, lower leg Primary osteoarthritis of left knee Primary localized osteoarthrosis, lower leg documented in this encounter Administered Medications Inactive Administered Medications - up to 3 most recent administrations Medication Order MAR Action Action Date Dose Rate Site lidocaine (XYLOCAINE MPF) 1 % injection 6 mL 6 mL, Intra-articular, ONCE, 1 dose, On Wed01/25/19 at 1200 $ Given 01/25/2019 3:46 PM CDT 6 mL Left Knee triamcinolone acetonide (KENALOG-40) injection 80 mg 80 mg, Intra-articular, ONCE, 1 dose, On Wed01/25/19 at 1200, Shake well before using. $ Given 01/25/2019 3:46 PM CDT 80 mg Left Knee documented in this encounter Care Teams Skates Operator Relationship Specialty Start Date End Date Blake [place] MD [address] [place] [address] PCP - General 05/20/16 documented as of this encounter
--- OUTSIDE RECORDS SUMMARY | 2024-07-29 17:22 | XMS_ITS | Encounter Summary ---
Author Organization [facility] Health Address [address] [place] [address] Care Team Providers Care Hotbed Lever Operator Name Role Phone Blake [place] MD Primary Care Provider [phone] Encounter Details Date Type Department Care Team (Latest Contact Info) Description 11/17/2018 1:30 PM CDT - 11/17/2018 11:59 PM CDT Hospital Encounter [facility] [address] [facility] [place] [address] Castillo Max MD [address] [place] [address] Rd [address] [place] [address] Discharge Disposition: Home or Self Care Social [...] AM CDT documented as of this encounter Medications at Time of Discharge Medication Sig Dispensed Refills Start Date End Date albuterol (PROVENTIL;VENTOLIN) (2.5 MG/3ML) 0.083% nebulizer solution INHALE 3 ML BY NEBULIZATION 3 TIMES DAILY 0 10/19/2018 01/12/2019 albuterol HFA (PROVENTIL;VENTOLIN;P ROAIR) 108 (90 BASE) MCG/ACT inhaler 10/14/2018 01/11/2019 ALPRAZolam (XANAX) 0.5 MG tablet TK 1 T PO TID PRN 0 10/21/2018 9 atorvastatin (LIPITOR) 10 MG tablet Take 10 mg by mouth DAILY. 1 05/25/2017 01/12/2019 budesonide-formoterol (SYMBICORT) 160-4.5 MCG/ACT inhaler Inhale 2 puffs by mouth BID. 1 Inhaler 5 08/16/2017 01/12/2019 buprenorphine (BUTRANS) 5 MCG/HR patch Apply 1 patch to skin every 7 days DX M54.12 4 patch 10/24/2018 11/24/2018 Cyanocobalamin (VITAMIN B 12) 100 MCG Take by mouth. 04/18/2017 01/12/2019 cyclobenzaprine (FLEXERIL) 10 MG tablet TK 1 T PO TID PRN 0 09/01/2018 01/12/2019 furosemide (LASIX) 20 MG tablet TK 1 T PO D 0 10/05/2018 01/12/2019 lamoTRIgine (LAMICTAL) 25 MG tablet TK 2 TS PO QD 0 10/21/2018 01/12/2019 nystatin (MYCOSTATIN) 833512 UNIT/GM powder 0 09/24/20172018 ondansetron (ZOFRAN) 8 MG tablet TK 1 T PO Q 8 H PRN 0 09/15/2018 01/13/20 19 QUEtiapine (SEROQUEL) 100 MG tablet TK 1 T PO QD HS 0 10/21/2018 01/12/2019 SENEXON-S 8.6-50 MG tablet TK 2 TS PO QD 1 09/30/2018 01/12/2019 SUMAtriptan (IMITREX) 50 MG tablet 0 05/26/2017 01/12/2019 documented as of this encounter Plan of Treatment Not on file documented as of this encounter Procedures Procedure Name Priority Date/Time Associated Diagnosis Comments CBC W AUTO DIFFERENTIAL DEMETRIO 11/17/2018 1:34 PM CDT Hodgkin lymphoma, unspecified Hodgkin lymphoma type, unspecified body region (HCC) COMPREHENSIVE METABOLIC PANEL DEMETRIO 11/17/2018 1:34 PM CDT Hodgkin lymphoma, unspecified Hodgkin lymphoma type, unspecified body region (HCC) LDH BLOOD DEMETRIO 11/17/2018 1:34 PM CDT Hodgkin lymphoma, unspecified Hodgkin lymphoma type, unspecified body region (HCC) documented in this encounter Results * [facility]DH BLOOD (11/17/2018 1:34 PM CDT) Pathologist [facility] LDH Total 193 125 - 243 Units/L 11/17/2018 2:20 PM [facility] Blood BLOOD SPECIMEN / Unknown Lab Venipuncture / Unknown 11/17/2018 1:34 PM CDT 11/17/2018 1:43 PM CDT Castillo Max MD LAB - CHEMISTRY OR DERABLES [address] [phone] * COMPREHENSIVE METABOLIC PANEL (11/17/2018 1:34 PM CDT) Pathologist [facility] BUN 13 7 - 26 mg/dL 11/17/2018 2:20 PM T [facility] Creatinine 0.8 0.6 - 1.2 mg/dL 11/17/2018 2:20 PM T [facility] Sodium 141 136 - 145 mmol/L 11/17/2018 2:20 PM T [facility] Potassium 3.7 3.5 - 4.5 mmol/L 11/17/2018 2:20 PM T [facility] Chloride 104 98 - 107 mmol/L 11/17/2018 2:20 PM [facility] CO2 28 22 - 29 mmol/L 11/17/2018 2:20 PM [facility] Glucose 102 70 - 115 mg/dL 11/17/2018 2:20 PM T [facility] Calcium 10.1 8.4 - 10.2 mg/dL 11/17/2018 2:20 PM [facility] Protein Total 7.2 6.0 - 8.3 g/dL 11/17/2018 2:20 PM [facility] Albumin 3.9 3.4 - 5.0 g/dL 11/17/2018 2:20 PM [facility] Bilirubin Total 0.4 0.2 - 1.2 mg/dL 11/17/2018 2:20 PM [facility] Alkaline Phosphatase 93 40 - 150 Units/L 11/17/2018 2:20 PM [facility] ALT 54 0 - 55 Units/L 11/17/2018 2:20 PM [facility] AST 28 5 - 34 Units/L 11/17/2018 2:20 PM [facility] Anion Gap 13 8 - 18 11/17/2018 2:20 PM [facility] BUN/Creatinine Ratio 16 7 - 23 11/17/2018 2:20 PM [facility] Osmolality Calculated 292 270 - 300 mOsm/kg 11/17/2018 2:20 PM [facility] Albumin/Globulin Ratio 1.2 1.1 - 2.3 11/17/2018 2:20 PM [facility] eGFR >60 >60 mL/min/1.7 3 m2 11/17/2018 2:20 PM [facility] Blood BLOOD SPECIMEN / Unknown Lab Venipuncture / Unknown 11/17/2018 1:34 PM CDT 11/17/2018 1:43 PM T Castillo Max MD LAB - CHEMISTRY OR DERABLES Performing Organization Address City/State/[facility] Co de Phone Number [facility] [address] [place] [address] * (ABNORMAL) CBC WITH DIFFERENTIAL (11/17/2018 1:34 PM CDT) WBC 11.3(H) 3.5 - 10.5 10? 3 /uL 11/17/2018 1:37 PM [facility] RBC 4.62 3.90 - 5.00 10? 6 /uL 11/17/2018 1:37 PM [facility] Hemoglobin 15.3 12.0 - 15.5 g/dL 11/17/2018 1:37 PM [facility] Hematocrit 44.5 35.0 - 45.0 % 11/17/2018 1:37 PM [facility] MCV 96.3 81.0 - 97.0 fL 11/17/2018 1:37 PM [facility] MCH 33.1 28.0 - 34.0 pg 11/17/2018 1:37 PM [facility] MCHC 34.4 32.0 - 36.0 g/dL 11/17/2018 1:37 PM [facility] Platelet Count 208 150 - 400 10? 3 /uL 11/17/2018 1:37 PM [facility] RDW-SD 46.4 36.0 - 50.0 fL 11/17/2018 1:37 PM [facility] RDW-CV 13.2 11.2 - 14.8 % 11/17/2018 1:37 [facility] MPV 8.3(L) 9.3 - 12.8 fL 11/17/2018 1:37 PM [facility] nRBC Absolute 0.00 0 10? 3 /uL 11/17/2018 1:37 PM [facility] nRBC Auto 0.0 0 /100 WBC 11/17/2018 1:37 PM [facility] Neutrophils % 70.7(H) 35.0 - 70.0 % 11/17/2018 1:37 PM [facility] Lymphocytes % 20.7 19.7 - 55.1 % 11/17/2018 1:37 PM [facility] Monocytes % 6.5 3.0 - 15.0 % 11/17/2018 1:37 PM [facility] Eosinophils % 1.2 0.0 - 6.0 % 11/17/2018 1:37 PM [facility] Basophil % 0.4 0.0 - 1.5 % 11/17/2018 1:37 PM [facility] Neutrophils Absolute 8.0(H) 1.6 - 7.0 10? 3 /uL 11/17/2018 1:37 PM [facility] Lymphocyte Absolute 2.4 0.8 - 2.9 10? 3 /uL 11/17/2018 1:37 PM CDT [facility] Monocytes Absolute 0.74(H) 0.14 - 0.66 10? 3 /uL 11/17/2018 1:37 PM CDT [facility] Eosinophils Absolute 0.14 0.00 - 0.45 10? 3 /uL 11/17/2018 1:37 PM CDT [facility] Basophils Absolute 0.05 0.00 - 0.06 10? 3 /uL 11/17/2018 1:37 PM CDT [facility] Immature Granulocytes % 0.5 0.0 - 1.0 % 11/17/2018 1:37 PM CDT [facility] Blood BLOOD SPECIMEN / Unknown Lab Venipuncture / Unknown 11/17/2018 1:34 PM CDT 11/17/2018 1:35 PM CDT Castillo Max MD LAB - HEMATOLOGY O RDERABLES Performing Organization Address City/State/[facility] Co de Phone Number [facility] [address] [phone] documented in this encounter Visit Diagnoses Diagnosis Hodgkin lymphoma, unspecified Hodgkin lymphoma type, unspecified body region (HCC) documented in this encounter Care Teams Hotbed Lever Operator Relationship Specialty Start Date End Date Blake [place] MD [address] [place] [address] PCP - General 05/20/16 documented as of this encounter
--- OUTSIDE RECORDS SUMMARY | 2024-07-29 17:22 | XMS_ITS | Encounter Summary ---
Author Organization [facility] Health Address [address] [place] [address] Care Team Providers Care Caisson Worker Name Role Phone Blake Lindsey MD Primary Care Provider [phone] Encounter Details Date Type Department Care Team (Late st Contact Info) Description 11/10/2017 1:40 PM CDT Office Visit [facility] - Orthopedics [address] [place] [address], [place] [phone] Wai Lowry MD [address] [place] [address] OF ORTHOPEDIC SURGERY [place], [place] [id number] Pain in joint of left shoulder (Primary Dx) Social History Tobacco Use Types [...] AM CDT documented as of this encounter Patient Instructions * Patient Instructions* Wai Lowry MD - 11/10/2017 2:22 PM CDT Images from the original note were not included. Adult and Pediatric Sports Medicine Lakeisha Alejandra 11/10/2017 Thank you for coming in to see us today for your left neck and shoulder pain. This is a school/work excuse note for today. We recommend that you try the following for your injury: Followup with spine surgeon Please contact us at option #1 to make an appointment if your symptoms are not improving, or if something about your condition significantly changes. *Please fill out the Press General Assemblyey survey that will be sent to you.* [facility] Orthopaedic office contact information: [facility]ly [facility] [address] [place] [address] [facility] [address] [place] [address] [address] [address] [facility] [address] [place] [address]. [address] [facility] [address] [place] [address], [place] [address], [place] [address] Please contact Fransico Kim (clinical nurse specialist) at or email: [email or web address] if you have any further questions or concerns. Sincerely, Wai Lowry MD [email or web address] 1. documented in this encounter Progress Notes * Wai Lowry MD - 11/10/2017 2:23 PM CDT Images from the original note were not included. Wai Lowry MD [facility] Orthopaedic Sports Medicine Adult and Pediatric Dear Dr. Blake Lindsey MD ; Today we had the pleasure of seeing Lakeisha Alejandra in [facility] Pediatric Orthopa[facility] for re-evaluation of her left shoulder pain. Patients left shoulder pain began 2014 following a C5-T12 spinal fusion. Since that time she has been experiencing sharp stabbing pain at the left shoulder that is sharp and stabbing in nature It is rated at 9/10 today and is worse with movement and better with rest. She has tried ice, PT, TENS, Voltaren gel, injections and ibuprofen. None of these have helped. She has received some relief from lyrica. Today she reports the pain is again extending into her neck. The symptoms are activity-related and improved with rest. No fevers, chills, numbness, paresthesiasor gross motor weakness. SANE Score (0-100): 10 No flowsheet data found. Medications Current Outpatient Prescriptions on File Prior to Visit Medication Sig Dispense Refill ??? nystatin (MYCOSTATIN) 959250 UNIT/GM powder 0 ??? pregabalin (LYRICA) 75 MG capsule 0 ??? lidocaine (LIDODERM) 5 % patch Apply 1 patch to skin Now Then Every 24 Hours. 10 patch 5 ??? budesonide-formoterol (SYMBICORT) 160-4.5 MCG/ACT inhaler Inhale 2 puffs by mouth BID. 1 Inhaler 5 ??? ALPRAZolam (XANAX) 1 MG tablet 2 ??? gabapentin (NEURONTIN) 300 MG capsule 0 ??? omeprazole (PRILOSEC) 20 MG capsule 2 ??? atorvastatin (LIPITOR) 10 MG tablet Take 10 mg by mouth DAILY. 1 ??? SUMAtriptan (IMITREX) 50 MG tablet 0 ??? promethazine (PHENERGAN) 25 MG tablet Take 25 mg by mouth q6h PRN (Nausea). 30 tablet 0 ??? diazePAM (VALIUM) 5 MG tablet Take 5 mg by mouth q6h PRN (Anxiety). ??? pantoprazole EC (PROTONIX) 40 MG tablet Take 40 mg by mouth DAILY. 30 tablet 3 ??? Cyanocobalamin (VITAMIN B 12) 100 MCG Take by mouth. ??? Melatonin 1 MG Take by mouth. ??? Misc Natural Products (OCTACOSANOL) 1000-5 MCG-UNIT Take by mouth. No current facility-administered medications on file prior to visit. Allergies as of 11/10/2017 - Castillo as Reviewed 11/10/2017 Allergen Reaction Noted ??? Penicillins Rash 11/03/2012 ??? Codeine Other 11/03/2012 ??? Epinephrine Other 11/03/2012 No past medical history on file. Past Surgical History: Procedure Laterality Date ??? Back Surgery ??? BIOPSY ??? HX SPINAL FUSION ??? [place] FEMUR/KNEE SURG UNLISTED both knees ??? LUTHER TOOTH EXTRACTION 15 Point review of systems was otherwise negative as reviewed today. Social History Occupational History ??? Not on file. Social History Main Topics ??? Smoking status: Former Smoker Packs/day: 1.00 Quit date: 11/30/1997 ??? Smokeless tobacco: Never Used ??? Alcohol use 0.5 oz/week ??? Drug use: No ??? Sexual activity: Not on file Family History Family History Problem Relation Age of Onset ??? Heart Disease Mother Status: Alive ??? Diabetes Mother ??? Hypertension Mother ??? Cancer Father Status: Alive ??? Heart Disease Father ??? None Known Brother Status: Alive Physical Exam: There were no vitals taken for this visit. Awake, alert and oriented. Gait is normal. No cervical spine tenderness but diminished neck range of motion in all 6 directions. No step off or deformity noted. +Spurling maneuver. Evaluation of the uninjured right shoulder noted no skin lesions, neurovascularly intact. There wasno tenderness/swelling/deformity. Ligamentously stable glenohumeral joint. Good active and passive range of motion. 5/5 strength in elevation. The left shoulder is neurovascularly intact with no active skin lesions. There is no scapular winging. There is tenderness of the AC joint, clavicle, rotator cuff insertion, periscapular muscles, long head biceps and proximal humerus. There is restricted passive range of motion (120 deg elevation).There is restricted active range of motion (120 deg elevation). Strength for elevation in the scapular plane is 3/5. There is not a sulcus sign. There is no generalized ligamentous laxity. There is no anterior apprehension. Relocation test is not done. There is no posterior apprehension. Mono's test is positive. Shoulder impingement test is positive. Imaging: cervical spine X-rays images and report re-reviewed by me today and reveal no instability. Grossly unchanged from imaging 06/17/2016. MRI left shoulder dated 08/12/2017 reveals mild subacromial bursitis Impression: 46 year old female with left upper extremity pain and negative shoulder MRI. Suspect cervical pathology. There is no operative shoulder pathology. Plan: We recommended that they try the following to treat their injury: Patient requests follow up with Spine Service. No follow-up needed in Sports Medicine. Please do not hesitate to contact me with questions regarding her or any other patient in the future. Our clinical nurse, Fransico Kim, can be reached at and by email at [email or web address]. Sincerely, Wai Lowry MD * Steven iGll RN - 11/10/2017 1:35 PM CDT Here for left s bhavana F/U.- TS documented in this encounter Plan of Treatment Not on file documented as of this encounter Results * XR CERVICAL SPINE 4 OR 5VW (11/10/2017 2:07 PM CDT) Anatomical Region Laterality Modality Spine Radiographic Jonna ging 11/10/2017 4:19 PM CDT Impressions 11/10/2017 4:46 PM CDT IMPRESSION: Unchanged partially imaged cervical spinal fusion extending from the level of C5 into the thoracic spine. No radiographic evidence of cervical spine instability with flexion or extension. Dictated by Colin Nick MD (manager residential). I, Dr. EMIL MALONE MD have personally reviewed and interpreted this examination/study. This report was electronically signed by EMIL MALONE MD ??on 11/10/2017 4:46 PM . Narrative [...] and texture are normal. Procedure Note Emil Malone MD - 11/10/2017 EXAMINATION: XR CERVICAL SPINE [...] or extension. Dictated by Colin Nick MD (manager residential). I, Dr. EMIL MALONE MD have personally reviewed and interpreted this examination/study. This report was electronically signed by EMIL MALONE MD on11/10/2017 4:46 PM . Umesh Brooks MD DIAGNOSTIC IMAGIN G ORDERABLES documented in this encounter Visit Diagnoses Diagnosis Pain in joint of left shoulder- Primary Pain in joint, shoulder region documented in this encounter Care Teams Caisson Worker Relationship Specialty Start Date End Date Blake Lindsey MD [address] [place] [address] PCP - General 05/20/16 documented as of this encounter
--- OUTSIDE RECORDS SUMMARY | 2024-07-29 17:22 | XMS_ITS | Encounter Summary ---
Author Organization [facility] Health Address [address] [place] [address] Care Team Providers Care Camera Control Operator Name Role Phone Blake Lindsey MD Primary Care Provider [phone] Reason for Visit * Reason Onset Date Comments Referral 08/10/2018 Pain Management Encounter Details Date Type Department Care Team (Late Contact [facility]) Description 08/10/2018 Telephone [facility] - Orthopedics [address] [place] [address] [place] [address] Dave Wadsworth, antenna design engineer (Pain Management) Social History Tobacco Use Types Packs/Day Years [...] AM CDT documented as of this encounter Miscellaneous Notes * Telephone Encounter - Dave Wadsworth RN - 08/10/2018 11:31 AM DIRECTOR OF COMPENSATION Lakeisha Alejandra was referred to [facility] [place] for pain management services on 08/10/2018. CTOR OF COMPENSATION documented in this encounter Plan of Treatment Not on file documented as of this encounter Visit Diagnoses Not on filedocumented in this encounter Care Teams Camera Control Operator Relationship Specialty Start Date End Date Blake Lindsey MD [address] [place] [address] PCP - General 05/20/16 documented as of this encounter
--- OUTSIDE RECORDS SUMMARY | 2024-07-29 17:22 | XMS_ITS | Encounter Summary ---
Author Organization [facility] Health Address [address] [place] [address] Care Team Providers Care Market Gardener Name Role Phone Blake Lindsey MD Primary Care Provider [phone] Reason for Visit * Reason Comments Pain Neck Encounter Details Date Type Department Care Team (Late st Contact Info) Description 11/24/2018 1:00 PM CDT Office Visit [facility] Health Pain Care [address] [facility] [address] [place] [address] Lay Mckeon, WEBFOCUS DEVELOPER-DIALYSIS CHIEF EQUIPMENT TECHNICIAN [address] [facility] [address] [place] [address] Carpal tunnel syndrome of right wrist (Primary Dx); Chronic pain of right knee; Chronic pain of left knee; Cervicalgia; Controlled substance agreement signed Social History Tobacco Use Types Packs/Day Years [...] Sign Reading Time Taken Comments Blood Pressure 122/83 11/24/2018 1:01 PM CDT Pulse 95 11/24/2018 1:01 PM CDT Temperature 36.8 ??C (98.2 ??F) 11/24/2018 1:01 PM CD T Respiratory Rate 20 11/24/2018 1:01 PM CDT Oxygen Saturation - - Inhaled Oxygen Concentration - - Weight 96.6 kg (213 lb) 11/24/2018 1:01 PM CDT Height 160 cm (5' 3 ) 11/24/2018 1:01 PM CDT Body Mass Index 37.73 11/24/2018 1:01 PM CDT documented in this encounter Patient Instructions * Patient Instructions* Radha Damian RN - 11/24/2018 1:49 PM CDT Butrans increased. 3 month f/u. DBS and UDS today documented in this encounter Progress Notes * Lay Mckeon, WEBFOCUS DEVELOPER-DIALYSIS CHIEF EQUIPMENT TECHNICIAN - 11/24/2018 1:08 PM CDT Lakeisha Alejandra is a 48 year old female PCP: Blake Lindsey MD Chief Complaint Patient presents with ??? Pain Neck HPI: Constitutional: alert, cooperative, no distress, oriented to person, place, and time The patient is reporting back pain midline cervical pain along with left shoulder pain . The pain has been present for 6 months. The pain began with hodgkin's diagnosis 2012 . Radiation occurs to the bilateral arms Associated symptoms include spasm. The pain worsens with sitting basically any activity . The pain improves with medication lying down for 30 min. The patient has tried the following modalities opiate, physical therapy, massage. The patient continues to utilize butran which she states do not help pain The patient has undergone diagnostic imaging, including MRI . Previous interventions include left shoulder injection . They come in today upon referral from No ref. provider found she (caps):27100} rates the pain 9/10 today. History of recent treatments include: Rest, ice, heat with poor response Physical therapy with poor response Massage with poor response Opiate pain medication with fair response. Interventional treatments performed: with 0% of improvement. Medications currently taking include: Other butran Medication improves pain by 0%. Constipation:No Last BM: 11/24/18 Use of stool softener or laxatives: No Current Medication: Current Outpatient Prescriptions on File Prior to Visit Medication Sig Dispense Refill ??? albuterol (PROVENTIL;VENTOLIN) (2.5 MG/3ML) 0.083% nebulizer solution INHALE 3 ML BY NEBULIZATION 3 TIMES DAILY 0 ??? albuterol HFA (PROVENTIL;VENTOLIN;PROAIR) 108 (90 BASE) MCG/ACT inhaler ??? ALPRAZolam (XANAX) 0.5 MG tablet TK 1 T PO TID PRN 0 ??? atorvastatin (LIPITOR) 10 MG tablet Take 10 mg by mouth DAILY. 1 ??? budesonide-formoterol (SYMBICORT) 160-4.5 MCG/ACT inhaler Inhale 2 puffs by mouth BID. 1 Inhaler 5 ??? buprenorphine (BUTRANS) 5 MCG/HR patch Apply 1 patch to skin every 7 days DX M54.12 4 patch 0 ??? Cyanocobalamin (VITAMIN B 12) 100 MCG Take by mouth. (Patient taking differently: Take by mouthonce daily ) ??? cyclobenzaprine (FLEXERIL) 10 MG tablet TK 1 T PO TID PRN 0 ??? furosemide (LASIX) 20 MG tablet TK 1 T PO D 0 ??? lamoTRIgine (LAMICTAL) 25 MG tablet TK 2 TS PO QD 0 ??? nystatin (MYCOSTATIN) 405809 UNIT/GM powder 0 ??? ondansetron (ZOFRAN) 8 MG tablet TK 1 T PO Q 8 H PRN 0 ??? QUEtiapine (SEROQUEL) 100 MG tablet TK 1 T PO QD HS 0 ??? SENEXON-S 8.6-50 MG tablet TK 2 TS PO QD 1 ??? SUMAtriptan (IMITREX) 50 MG tablet 0 No current facility-administered medications on file prior to visit. Surgical history: Past Surgical History: Procedure Laterality Date ??? Back Surgery ??? BIOPSY ??? HX SPINAL FUSION ??? [place] FEMUR/KNEE SURG UNLISTED both knees ??? LUTHER TOOTH EXTRACTION MEDBRIEFNAME@ Allergies Allergen Reactions ??? Penicillins Rash ??? Codeine Other Passes out ??? Epinephrine Other When injected in mouth for dental procedures, makes extremities go numb Occupation: Disability Currently Working: No Review of Systems EENT-neg CARDIAC-neg RESPIRATORY-neg GI-neg -neg INTEG-neg HEM/ONC-neg ENDOCRINE-neg PSYCH-neg NEURO-neg MUSCULOSKELETAL see HPI Physical Examination: BP 122/83 Pulse 95 Temp 98.2 ??F (36.8 ??C) Resp 20 Ht 1.6 m (5' 3 ) Wt 96.6 kg (213 lb) BMI 37.73 kg/m2 Alert and oriented x 3 HEENT: normocephalic, atraumatic Cardiovascular: Regular rate and rhythm Respiratory: Unlabored breathing, clear to auscultation Musculoskeletal see HPI Plan: Chronic pain/medication management This is an established patient. - who remains compliant with the prescribed medication regimen - returns requesting a timely refill. - reports improved activity level and a reduction in pain by at least 50 % - denies side effects from medications. - UDS reviewed - medications are to be locked and secured - no promise of refill for stolen or lost medications - CDC guidelines reviewed with patient - tapering is recommended- to take only as needed for severe pain - is a low risk patient. Treatment: No orders of the defined types were placed in this encounter. Procedures: Diagnostic Imaging: Assessment: 1. Pseudarthrosis after fusion orarthrodesis {BACK PAIN; TREATMENT: Pseudarthrosis after fusion or arthrodesis M96.0 ?? Arthrodesis status Z98.1 ?? Pain in left shoulder M25.512 ?? Notes There were no encounter diagnoses. Continue exercises as prescribed. Continue with prescribed medications as ordered. Orders this visit: No orders of the defined types were placed in this encounter. Follow up /Instructions: Return in about 3 months (around 02/23/2019). Patient education/teaching: Risk, benefits, and alternatives of treatment discussed with patient, including medication, interventions, and physical therapy. Any procedures scheduled were explained with the use of a model. Side effects of medications explained, precautions discussed. ?? Discussed treatment plan with patient and answered questions. The possible treatments were discussed as well as side effects and complications. Treatment plan and any changes in current treatment discussed. Patient verbalized understanding. Increased Butran 5 mcg to 15 mcg Patient will go to physical/massage therapy per ortho physician Thank you for letting me take part in this patient???s care. Sincerely, Lay Mckeon APRN, ASHLEY . * Radha Damian RN - 11/24/2018 12:49 PM CDT Lakeisha returns to Pain Management office today for evaluation of back, shoulder, neck and arm pain. She rates the pain 9/10 today. History of recent treatments include: PT, TENS unit and a shoulder injection in the past. Interventional treatments performed: NONE. Medications currently taking include: Butrans 5mcg/hr patch. Medication improves pain by 0% ?? DBS 09/15/2018: Pt negative for opiates and positive for xanax and THC. TENs Unit ordered. Insurance denied but patient found one at [employer] and bought patches off [facility]. ?? 10/24/2018 Spoke with [facility] pharmacy , and verified last script for Oxycodone 20mg #180 1-2 tabs every 6 hours 06/2018, from Dr. Blaek Lindsey.?? Spoke with Jessica Guaman at [facility] . She agrees that the patient is eligible for pain medication at Dr. Ornelas's discretion. She will not continue the benzodiazepines while the patient is prescribed pain medication. Dr. Ornelas approved to trial Buprenorphine patch 5mcg/hr. documented in this encounter Plan of Treatment Not on file documented as of this encounter Procedures Procedure Name Priority Date/Time Associated Diagnosis Comments TOXASSURE SELECT Routine 11/24/2018 1:31 PM CDT Controlled substance agreement signed documented in this encounter Results * TOXASSURE SELECT URINE (11/24/2018 1:31 PM [...] Resulting Agency Comment Lab Testing performed at: [facility] [address] [place] [address] D ??[facility] [id number] Lay Mckeon WEBFOCUS DEVELOPER-DIALYSIS CHIEF EQUIPMENT TECHNICIAN LAB - URINE CH EMISTRY ORDERABLES [facility] INSURANCE BILL [address] [place] [address] documented in this encounter Visit Diagnoses Diagnosis Carpal tunnel syndrome of right wrist- Primary Carpal tunnel syndrome Chronic pain of right knee Chronic pain of left knee Pain in joint, lower leg Cervicalgia Controlled substance agreement signed Encounter for long-term (current) use of other medications documented in this encounter Care Teams Market Gardener Relationship Specialty Start Date End Date Blake Lindsey MD [address] [place] [address] PCP - General 05/20/16 documented as of this encounter
--- OUTSIDE RECORDS SUMMARY | 2024-07-29 17:22 | XMS_ITS | Encounter Summary ---
Author Organization [facility] Health Address [address] [place] [address] Care Team Providers Care Silver Steward Name Role Phone Blake Lindsey MD Primary Care Provider [phone] Encounter Details Date Type Department Care Team (Late st Contact Info) Description 10/20/2017 [facility] - [facility]ics [address] [place] [address] [place] [address] Wai Lowry MD [address] [place] [address] [place] [address] Discharge Disposition: Home or Self [...] AM CDT documented as of this encounter Plan of Treatment Not on file documented as of this encounter Procedures Procedure Name Priority Date/Time Associated Diagnosis Comments XR SHOULDER LEFT 2VW OR MORE Routine 10/20/2017 11:50 AM CDT documented in this encounter Results * XR SHOULDER LEFT 2VW OR MORE (10/20/2017 11:50 AM CDT) Anatomical Region Laterality Modality Upper Extremity Other Impressions 10/20/2017 12:42 PM CDT IMPRESSION: No acute fracture or dislocation identified. No significant arthritis. Dictated by Roberto Carlos Valencia MD (residential builder). Dr. GREG Muller have personally reviewed and [...] instrumentation is partially imaged. Procedure Note Greg Melchor, DO - 11/03/2017 EXAMINATION: XR SHOULDER LEFT [...] arthritis. Dictated by Roberto Carlos Valencia MD (residential builder). Dr. GREG Muller have personally reviewed and interpreted thisexamination/study. This report was electronically signed by GREG MELCHOR on 10/20/201712:42 PM . Wai Lowry MD DIAGNOSTIC IMAGING O RDERABLES documented in this encounter Visit Diagnoses Diagnosis Unspecified disorder of synovium and tendon, left shoulder documented in this encounter Care Teams Silver Steward Relationship Specialty Start Date End Date Blake Lindsey MD [address] [place] [address] PCP - General 05/20/16 documented as of this encounter
--- OUTSIDE RECORDS SUMMARY | 2024-07-29 17:22 | XMS_ITS | Encounter Summary ---
Author Organization [facility] Health Address [address] [facility] [place] [address] Care Team Providers Care Mysql Developer Name Role Phone Blake Lindsey MD Primary Care Provider [phone] Encounter Details Date Type Department Care Team (Late st Contact Info) Description 11/16/2018 Orders Only [facility] - Orthopedics [address] [place] [address], [place] [phone] Wai Lowry MD [address] [place] [address] OF ORTHOPEDIC SURGERY [place], [place] [id number] Chronic left shoulder pain Social History Tobacco Use Types Packs/Day [...] as of this encounter Visit Diagnoses Diagnosis Chronic left shoulder pain- Primary Pain in joint, shoulder region documented in this encounter Care Teams Mysql Developer Relationship Specialty Start Date End Date Blake Lindsey MD [address] [place] [address] PCP - General 05/20/16 documented as of this encounter
--- OUTSIDE RECORDS SUMMARY | 2024-07-29 17:22 | XMS_ITS | Encounter Summary ---
Author Organization [facility] Health Address [address] [facility] [place] [address] Care Team Providers Care Caterpillar Tractor Operator Name Role Phone Blake Lindsey MD Primary Care Provider [phone] Encounter Details Date Type Department Care Team (Late st Contact Info) Description 12/16/2018 Orders Only [facility] Health Pain Care [address] [facility] [address] [place] [address] Radha Damian, RN Social History Tobacco Use Types Packs/Day [...] encounter Patient Instructions * Patient Instructions* Radha Damian, RN - 12/16/2018 2:21 PM CDT Pt called and spoke with MAYANK David about her butrans patch. She is requesting an increase. Lay spoke with Dr. Ornelas and approved 20 mcg/hr patches. New script called to pharmacy. documented in this encounter Plan of Treatment Not on file documented as of this encounter Visit Diagnoses Not on filedocumented in this encounter Care Teams Caterpillar Tractor Operator Relationship Specialty Start Date End Date Blake Lindsey MD [address] [place] [address] PCP - General 05/20/16 documented as of this encounter
--- OUTSIDE RECORDS SUMMARY | 2024-07-29 17:22 | XMS_ITS | Encounter Summary ---
Author Organization [facility] Health Address [address] [place] [address] Care Team Providers Care Job Interviewer Name Role Phone Blake Lindsey MD Primary Care Provider [phone] Reason for Visit * Reason Onset Date Comments Returned Call 01/05/2019 Encounter Details Date Type Department Care Team (Late st Contact Info) Description 01/05/2019 Telephone [facility] - Orthopedics [address] [place] [address], [facility] [place] [address] Wai Lowry MD [address] [place] [address] OF ORTHOPEDIC SURGERY [place], [place] [id number] Returned Call Social History Tobacco Use Types Packs/Day Years [...] encounter Miscellaneous Notes * Telephone Encounter - Steven Gill RN - 01/05/2019 1:19 PM CDT Patient called and left a message regarding a left knee referral. I attempted to call the patient several times but obtained a recording that her VM had not been set up. Unable to reach patient or leave a message.- TS documented in this encounter Plan of Treatment Not on file documented as of this encounter Visit Diagnoses Not on filedocumented in this encounter Care Teams Job Interviewer Relationship Specialty Start Date End Date Blake Lindsey MD [address] [place] [address] PCP - General 05/20/16 documented as of this encounter
--- OUTSIDE RECORDS SUMMARY | 2024-07-29 17:22 | XMS_ITS | Encounter Summary ---
Author Organization [facility] Health Address [address] [place] [address] Care Team Providers Care Medical Dir Name Role Phone Blake Lindsey MD Primary Care Provider [phone] Reason for Visit * Radiology Services (Routine) - Closed Specialty Diagnoses / Procedures Referred By Ariel t Referred To Contact Mammography Diagnoses Disorder of breast Breast lump Procedures MAMMO BILAT DIAGNOSTIC Castillo Max MD [address] [place] [address] [facility] Op [address] [place] [address] Referral ID Status Reason Start Date Expiration Date Visits Re quested Visits Authorized [id number] Closed 11/17/2018 05/16/2019 1 1 Encounter Details Date Type Department Care Team (Latest Contact Info) Description 11/28/2018 1:49 PM CDT - 11/28/2018 1:53 PM CDT Hospital Encounter [facility] [address] [place] [address] Castillo Max MD [address] [place] [address] Discharge Disposition: Home or Self [...] 1 Inhaler 5 08/16/2017 01/12/2019 buprenorphine (BUTRANS) 15 MCG/HR patch APPLY 1 PATCH TO SKIN Q 7 DAYS 2 11/25/2018 01/19/2019 buprenorphine (BUTRANS) 15 MCG/HR patch Apply 1 patch to skin every 7 days DX M54.12 4 patch 2 11/24/2018 12/16/2018 Cyanocobalamin (VITAMIN B 12) 100 MCG Take by mouth. 04/18/2017 01/12/2019 cyclobenzaprine (FLEXERIL) 10 MG tablet TK 1 T PO TID PRN 0 09/01/2018 01/12/2019 furosemide (LASIX) 20 MG tablet TK 1 T PO D 0 10/05/2018 01/12/2019 lamoTRIgine (LAMICTAL) 25 MG tablet TK 2 TS PO QD 0 10/21/2018 01/12/2019 nystatin (MYCOSTATIN) 717409 UNIT/GM powder 0 09/24/20172018 ondansetron (ZOFRAN) 8 [...] Procedure Name Priority Date/Time Associated Diagnosis Comments MAMMO BILAT DIAGNOSTIC Routine 11/28/2018 2:20 PM CDT Disorder of breast Breast lump documented in this encounter Results * MAMMO BILAT DIAGNOSTIC (11/28/2018 2:20 PM [...] sonography and digital palpation was performed by pigment furnace tender and physician throughout the inferior left breast. Multiple mobile lumps identified in this region on palpation correspond to fat lobules. No suspicious mass or dominant cyst is seen. This examination was subjected to CAD analysis. The results of this examination were discussed with the patient by Dr. Boyd. Castillo Max MD MAMMO ORDERABLES documented in this encounter Visit Diagnoses Diagnosis Disorder of breast Unspecified breast disorder Breast lump Lump or mass in breast documented in this encounter Care Teams Medical Dir Relationship Specialty Start Date End Date Blake Lindsey MD [address] [place] [address] PCP - General 05/20/16 documented as of this encounter
--- OUTSIDE RECORDS SUMMARY | 2024-07-29 17:22 | XMS_ITS | Encounter Summary ---
Author Organization [facility] Health Address [address] [place] [address] Care Team Providers Care Table Games Manager Name Role Phone Blake Lindsey MD Primary Care Provider [phone] Encounter Details Date Type Department Care Team (Late st Contact Info) Description 01/19/2019 1:40 PM CDT Office Visit [facility] Hematology and Oncology[address] [address] Castillo Max MD [address] [place] [address] [place] [id number] Hodgkin lymphoma, unspecified Hodgkin lymphoma type, unspecified body region (HCC) (Primary Dx) Social History Tobacco Use Types [...] Sign Reading Time Taken Comments Blood Pressure 126/92 01/19/2019 1:40 PM CDT Pulse 117 01/19/2019 1:40 PM CDT Temperature 37.4 ??C (99.3 ??F) 01/19/2019 1:40 PM CD T Respiratory Rate 20 01/19/2019 1:40 PM CDT Oxygen Saturation 98% 01/19/2019 1:40 PM CDT Inhaled Oxygen Concentration - - Weight 94.3 kg (208 lb) 01/19/2019 1:40 PM CDT Height 160 cm (5' 3 ) 01/19/2019 1:40 PM CDT Body Mass Index 36.85 01/19/2019 1:40 PM CDT documented in this encounter Functional [...] as of this encounter Progress Notes * Castillo Max MD - 01/31/2019 11:49 PM CDT Lakeisha Alejandra is a patient with classic Hodgkin Lymphoma, stage IV, IPS 3 with biopsy proven stageIV soft tissue/bone disease, relatively rapid growth, diagnosed in September 2012. Underwent extensive spine surgery with fixation at that point. Started escalated BEACOPP 11/29/12 and completed 03/20/13. She received dose reduction cycles 4-6(one dose level 4 and 5, two dose levels 6) Due to febrile neutropenia in spite of growth factor support and grade IV thrombocytopenia With platelet transfusion refractoriness. Course was complicated by an Ecoli bacteremia requiring PORT removal. Lakeisha reports since her last visit in October she has noticed a lot bruising, night sweats and nodules under her skin. She reports she has been tired and experiencing a decreased appetite. She reports she has an IUD and hasn't had a menstrual period in 10 years so she doesn't know if she is menopausal. She is concerned that her Hodgkin Lymphoma is recurring. ROS:GENERAL: Negative for any fevers, chills, or weight loss.+fatigue NEUROLOGIC: Negative for any blurry vision, blind spots, double vision, facial asymmetry, dysphagia, dysarthria, hemiparesis, hemisensory deficits, vertigo, ataxia. HEENT: Negative for any head trauma, neck trauma, neck stiffness, photophobia, phonophobia, sinusitis, rhinitis. CARDIAC: Negative for any chest pain, dyspnea on exertion, paroxysmal nocturnal dyspnea, peripheraledema. PULMONARY: Negative for any shortness of breath, wheezing, COPD, or TB exposure. GASTROINTESTINAL: Negative for any abdominal pain, nausea, vomiting, bright red blood per rectum, melena.decreased appetite GENITOURINARY: Negative for any dysuria, hematuria, incontinence. INTEGUMENTARY: Negative for any rashes, cuts, insect bites.nodules under skin RHEUMATOLOGIC: Negative for any joint pains, photosensitive rashes, history of vasculitis or kidneyproblems. HEMATOLOGIC: Negative for any frequent infections or bleeding. +easy bruising Meds: Current Outpatient Prescriptions: ??? albuterol (PROVENTIL;VENTOLIN) (2.5 MG/3ML) 0.083% nebulizer solution, INHALE 3 ML BY NEBULIZATION 3 TIMES DAILY Reasons: Disease Involving Spasms of the Bronchus, Disp: 1 vial, Rfl: 0 ??? atorvastatin (LIPITOR) 10 MG tablet, Take 1 tablet by mouth at bedtime Reasons: High Amount of Fats in the Blood, Disp: 30 tablet, Rfl: 0 ??? budesonide-formoterol (SYMBICORT) 160-4.5 MCG/ACT inhaler, Inhale 2 puffs by mouth 2 times daily Reasons: Chronic Bronchitis, Disp: 1 Inhaler, Rfl: 0 ??? buprenorphine (BUTRANS) 20 MCG/HR patch, Apply 1 patch to skin every 7 days Reasons: Moderate to Severe Chronic Pain (Patient not taking: Reported on 01/19/2019), Disp: 4 patch, Rfl: 0 ??? furosemide (LASIX) 20 MG tablet, Take 1 tablet by mouth once daily Reasons: Edema, Disp: 30 tablet, Rfl: 0 ??? hydrOXYzine hcl (ATARAX) 25 MG tablet, Take 1 tablet by mouth 3 times daily as needed (anxiety)Reasons: Feeling Anxious, Disp: 90 tablet, Rfl: 0 ??? ibuprofen (MOTRIN) 600 MG tablet, , Disp: , Rfl: ??? lamoTRIgine (LAMICTAL) 100 MG tablet, TK 1 T PO QD, Disp: , Rfl: 0 ??? QUEtiapine (SEROQUEL) 100 MG tablet, Take 1 tablet by mouth at bedtime Reasons: Major Depressive Disorder, Disp: 30 tablet, Rfl: 0 ??? QUEtiapine (SEROQUEL) 50 MG tablet, TK 1 T PO HS, Disp: , Rfl: 0 ??? SENEXON-S 8.6-50 MG tablet, Take 1 tablet by mouth once daily Reasons: Constipation, Disp: 30 tablet, Rfl: 0 ??? SUMAtriptan (IMITREX) 50 MG tablet, Take 1 tablet by mouth once as needed for Migraine Maximum daily dose: 200mg/24 hours Reasons: Migraine Headache, Disp: 30 tablet, Rfl: 0 VS: Blood pressure 126/92, pulse (!) 117, temperature 99.3 ??F (37.4 ??C), temperature source Oral,resp. rate 20, height 1.6 m (5' 3 ), weight 94.3 kg (208 lb), SpO2 98 %, not currently . PE: A&O x 3 Heart: RRR Lungs: CTA Abd: soft, BS+ Extrem: no deformity Skin: a few dime sized yellowish bruises on the extremities and breasts. A pea sized mobile nodule beneath the skin near the left ankle and one on the right forearm Lymph: no palpable cervical, axillary or inguinal adenopathy HEENT: normocephalic, neck supple, no mucositis Labs: Recent Labs Component Name 01/11/19 1432 11/17/18 1334 08/21/18 1023 WBC 9.9 11.3* 10.3 RBC 4.89 4.62 4.79 HGB 16.1* 15.3 15.5 HCT 46.8* 44.5 45.1* MCV 95.7 96.3 94.2 MCHC 34.4 34.4 34.4 PLTCOUNT 205 208 230 NEUTPCT 71.6* 70.7* 74.9* NEUTABS 7.1* 8.0* 7.8* Recent Labs Component Name 01/11/19 1432 11/17/18 1334 08/21/18 1023 POTASSIUM 3.3* 3.7 3.2* CO2 27 28 22 BUN 8 13 6* CREATININE 0.8 0.8 0.7 CALCIUM 10.4* 10.1 10.0 ALT 26 54 47 ALKPHOS 96 93 99 AST 18 28 32 EGFR >60 >60 >60 PT 12.3/1.0 PTT 31.0 FSH 68.5 LH 37.4 Estradiol 7.2 A/P: Hodgkin Lymphoma dx September 2012.Will schedule a PET scan given her subcutaneous nodules and other symptoms of concern for relapse. Easy bruising. CBC normal. Will check coags Night sweats. She may be perimenopausal, we will check hormone levels to evaluate this. PET scan nacho scheduled. Recurrent ear infections per patient. Has ENT appt scheduled. Castillo Max M.D. Director, Blood and Marrow Transplantation Computer Security Specialist, Department of Internal Medicine [facility] documented in this encounter Plan of Treatment Not on file documented as of this encounter Visit Diagnoses Diagnosis Hodgkin lymphoma, unspecified Hodgkin lymphoma type, unspecified body region (HCC)- Primary documented in this encounter Care Teams Table Games Manager Relationship Specialty Start Date End Date Blake Lindsey MD [address] [place] [address] PCP - General 05/20/16 documented as of this encounter
--- OUTSIDE RECORDS SUMMARY | 2024-07-29 17:22 | XMS_ITS | Encounter Summary ---
Author Organization [facility] Health Address [address] [place] [address] Care Team Providers Care Geologic Technician Name Role Phone Blake Lindsey MD Primary Care Provider [phone] Reason for Visit * Reason Comments Pain Neck Encounter Details Date Type Department Care Team (Late st Contact Info) Description 10/24/2018 3:00 PM CDT Office Visit [facility] Health Pain Care [address] [place] [id number] [place] [address] [place] [address] Cervicalgia (Primary Dx) Social History Tobacco Use Types [...] Sign Reading Time Taken Comments Blood Pressure 130/91 10/24/2018 2:38 PM CDT Pulse 116 10/24/2018 2:38 PM CDT Temperature 36.7 ??C (98.1 ??F) 10/24/2018 2:38 PM CD T Respiratory Rate 16 10/24/2018 2:38 PM CDT Oxygen Saturation - - Inhaled Oxygen Concentration - - Weight 96 kg (211 lb 9.6 oz) 10/24/2018 2:38 PM CDT Height 160 cm (5' 3 ) 10/24/2018 2:38 PM CDT Body Mass Index 37.48 10/24/2018 2:38 PM CDT documented in this encounter Patient Instructions * Patient Instructions* Nia Reyez, RT(R) - 10/24/2018 2:37 PM CDT documented in this encounter Progress Notes * Radha Damian RN - 10/24/2018 2:31 PM CDT Lakeisha returns to Pain Management office today for evaluation of back, shoulder, neck and arm pain. She rates the pain 9/10 today. History of recent treatments include: PT, TENS unit and a shoulder injection in the past. Interventional treatments performed: NONE. Medications currently taking include: NONE from Dr. Orneals DBS last visit. Pt negative for opiates and positive for xanax and THC. TENs Unit ordered last visit. Insurance denied but patient found one at [facility] and bought patches off [employer]. Spoke with [facility] , and verified last script for Oxycodone 20mg #180 1-2tabs every 6 hours 06/2018, from Dr. Blake Lindsey. Spoke with Jessica Guaman at [facility] . She agrees that the patient is eligible for pain medication at Dr. Ornelas's discretion. She will not continue the benzodiazepines while the patient is prescribed pain medication. Dr. Ornelas approved to trial Buprenorphine patch 5mcg/hr. * Andrea Ornelas MD - 10/24/2018 2:26 PM CDT Lakeisha Alejandra is a 47 year old female 1970 Chief Complaint Patient presents with ??? Pain Neck Lakeisha returns to Pain Management office today for evaluation of back, shoulder, neck and arm pain. She rates the pain 9/10 today. story of recent treatments include: PT, TENS unit and a shoulder injection in the past. Interventional treatments performed: NONE. Medications currently taking include: NONE from this clinic ?? DBS last visit. TENs Unit ordered back, shoulder, neck and arm pain that started in 2012. Pt. Rates pain on average from a 6-10/10 weekly with an average of 8/10. Pt. Describes the pain as shooting, aching and sharp. The pain is constant and associated with numbness, tingling, weakness, headache and bowel/bladder dysfunction. Coughing, sneezing, exercise, walking, sitting, standing, lying down, sexual activity, weather changes, cold, driving, rolling in bed, moving from sitting to standing, taking stairs and stress/fatigue makethe pain worse. Heat and medications help the pain. Pt. Has done PT, TENS unit and a shoulder injection in the past. Pt. Is taking oxycontin for pain that relieves the pain by 20% 47 y/o with a distant history of hodgkin's with metastases to the thoracic spine s/p posterior fusion C5-T12. The disease is since in remission. Her PCP was prescribing her 120 mg oxycodone per day x13 years. She recently had her scripts d/c'd due to a failed drug test. Patient states her stole her prescription and then tested negative on a UA, after which her PCP stopped writing for heroxycodone. Timeline of events is unclear. Presents today for new pain management physician. ? Past Medical History: Diagnosis Date ??? High cholesterol ? Family History Problem Relation Age of Onset ??? Heart Disease Mother ? Status: Alive ??? Diabetes Mother ? Hypertension Mother ? Cancer Father ? Status: Alive ??? Heart Disease Father ? None Known Brother ? Status: Alive ?? Past Surgical History: Procedure Laterality Date ??? Back Surgery ? BIOPSY ? HX SPINAL FUSION ? NE FEMUR/KNEE SURG UNLISTED ? both knees ??? LUTHER TOOTH EXTRACTION ? Social History Social History ?? Social History ??? Marital status: Single ? Spouse name: N/A ??? Number of children: N/A ??? Years of education: N/A ?? Occupational History ??? Not on file. ?? Social History Main Topics ??? Smoking status: Former Smoker ? Packs/day: 1.00 ? Quit date: 11/30/1997 ??? Smokeless tobacco: Never Used ??? Alcohol use 0.5 oz/week ??? Drug use: No ??? Sexual activity: Not on file ?? Other Topics Concern ??? Not on file ?? Social History Narrative Outpatient Encounter Prescriptions as of 09/15/2018 Medication Sig Dispense Refill ??? ALPRAZolam (XANAX) 1 MG tablet ? 2 ??? atorvastatin (LIPITOR) 10 MG tablet Take 10 mg by mouth DAILY. ?? 1 ??? budesonide-formoterol (SYMBICORT) 160-4.5 MCG/ACT inhaler Inhale 2 puffs by mouth BID. 1 Inhaler 5 ??? Cyanocobalamin (VITAMIN B 12) 100 MCG Take by mouth. ? Furosemide (LASIX PO) ? Melatonin 1 MG Take by mouth. ? Misc Natural Products (OCTACOSANOL) 1000-5 MCG-UNIT Take by mouth. ? nystatin (MYCOSTATIN) 360100 UNIT/GM powder ? 0 ??? omeprazole (PRILOSEC) 20 MG capsule ? 2 ??? pantoprazole EC (PROTONIX) 40 MG tablet Take 40 mg by mouth DAILY. 30 tablet 3 ??? PARoxetine HCl (PAXIL PO) ? pregabalin (LYRICA) 75 MG capsule ? 0 ??? promethazine (PHENERGAN) 25 MG tablet Take 25 mg by mouth q6h PRN (Nausea). 30 tablet 0 ??? SUMAtriptan (IMITREX) 50 MG tablet ? 0 ?? No facility-administered encounter medications on file as of 09/15/2018. ?? Allergies Allergen Reactions ??? Penicillins Rash ??? Codeine Other ? Passes out ??? Epinephrine Other ? When injected in mouth for dental procedures, makes extremities go numb ROS General: Denies fever, eating and drinking well. Skin: Denies itching, rashes or other lesions. Eyes: No tearing or discharge reported. ENT: Denies runny nose or ear pain. Pulmonary: Has flu Cardiac: Denies chest pain, palpitations Gastro: Denies nausea, vomiting, diarrhea or abdominal pain. : Reports normal urine output with no c/o pain or discomfort. Ortho: Endorses back pain Heme: Hodgkin's in remission Endocrine: Denies Diabetes, Thyroid disease Neuro: Denies Seizures, TIAs, Hx stroke, weakness,numbness Psych: Denies Depression, Anxiety, History of drug abuse or addiction ?? Examination: BP 130/91 Pulse 116 Temp 98.1 ??F (36.7 ??C) (Oral) Resp 16 Ht 1.6 m (5' 3 ) Wt 96 kg (211 lb 9.6 oz) BMI 37.48 kg/m2 General: Alert and oriented x 3 HEENT: normocephalic, atraumatic Cardiovascular: Regular rate and rhythm Respiratory: Unlabored breathing, clear to auscultation Abdomen: non-tender, non-distended Extremities: no clubbing, cyanosis or edema Neuro muscle strength 4-5 / 5 in LEs sensory grossly intact Reflexes diminished in LEs Back: Lumbar Paraspinals: Pain increases with extension and flexion. Mild Tenderness over Sacroiliac joints Assessment ? ICD-10-CM ?? 1. Cervicalgia M54.2 NE TENS FOUR LEAD 2. Low back pain, unspecified back pain laterality, unspecified chronicity, with sciatica presence unspecified M54.5 AMB REFERRAL TO PAIN CLINIC ? NE TENS FOUR LEAD 3. Primary osteoarthritis of left shoulder M19.012 ? Plan ?? Orders Placed This Encounter ??? buprenorphine (BUTRANS) 5 MCG/HR patch Sig: Apply 1 patch to skin every 7 days DX M54.12 Dispense: 4 patch Refill: 0 documented in this encounter Plan of Treatment Not on file documented as of this encounter Visit Diagnoses Diagnosis Cervicalgia- Primary documented in this encounter Care Teams Geologic Technician Relationship Specialty Start Date End Date Blake Lindsey MD [address] [place] [address] PCP - General 05/20/16 documented as of this encounter
--- OUTSIDE RECORDS SUMMARY | 2024-07-29 17:22 | XMS_ITS | Encounter Summary ---
Author Organization [facility] Health Address [address] [place] [address] Care Team Providers Care Bale Stacker Name Role Phone Blake Lindsey MD Primary Care Provider Reason for Visit * Reason Onset Date Comments Shoulder Pain left Shoulder Pain 11/16/2018 * Evaluate & Treat (Routine) - Closed Specialty Diagnoses / Procedures Referred By Contact Referred To Contact Orthopedic Surgery / Orthopedics Blake Lindsey MD [address] [place] [address] Wai Lowry MD [address] [place] [address] [place] [address] Referral ID Status Reason Start Date Expiration Date Visits Re quested Visits Authorized [id number] Closed 11/16/2018 05/15/2019 1 1 Encounter Details Date Type Department Care Team (Late st Contact Info) Description 11/16/2018 12:50 PM CDT Office Visit [facility] - Orthopedics [address] [place] [address], [place] [phone] Wai Lowry MD [address] [place] [address] [place] [address] Chronic left shoulder pain (Primary Dx); Chronic left hip pain Social History Tobacco Use Types Packs/Day [...] Sign Reading Time Taken Comments Blood Pressure 121/91 11/16/2018 12:48 PM CDT Pulse - - Temperature - - Respiratory Rate - - Oxygen Saturation - - Inhaled Oxygen Concentration - - Weight - - Height 160 cm (5' 3 ) 11/16/2018 12:48 PM CDT Body Mass Index - - documented in this encounter Patient Instructions * Patient Instructions* Wai Lowry MD - 11/16/2018 1:10 PM CDT Images from the original note were not included. Adult and Pediatric Sports Medicine Lakeisha Alejandra 11/16/2018 Thank you for coming in to see us today for your left shoulder pain. This is a school/work excuse note for today. We recommend that you try the following for your injury: icing, physical therapy exercises, anti-inflammatory medications and corticosteroid injection givenin clinic today Please contact us at option #1 to make an appointment if your symptoms are not improving, or if something about your condition significantly changes. *Please fill out the Press Ganey survey that will be sent to you.* [facility] Orthopaedic office contact information: Counts include 234 beds at the [facility] [address] [place] [address] [facility] [address] [facility], 2nd floor, [place] [address] [facility] [address] [place] [address] [facility] [address] [place] [address] [address]. [address], [place] [address] Please contact Fransico Kim (clinical nurse specialist) at or email: [email or web address] if you have any further questions or concerns. Sincerely, Wai Lowry MD Team Physician for the [facility] [email or web address] documented in this encounter Progress Notes * Wai Lowry MD - 11/16/2018 1:09 PM CDT Images from the original note were not included. Wai Lowry MD [facility] Orthopaedic Sports Medicine Adult and Pediatric Date of Clinic Visit: 11/16/[address] Blake Lindsey MD ; Today we had the pleasure of seeing Lakeisha Alejandra in Orthopaedic Sports Medicine Clinic for re-evaluation of her left shoulder injury. Lakeisha Alejandra is a 47 year old female who presents to clinic for chronic left shoulder pain. Patient was seen in clinic 1 year previously with left shoulder pain that was thought to be from her neck. She has seen the spine team and is now following with pain management. She continues to have pain in the posterior shoulder and scapular-thoracic area. Her pain has been treated with narcotics, PT, injections, and TENs machine in the past. Today her pain is located over the scapula and is worse with shoulder movement and activity. The symptoms are activity-related and improved with rest. No fevers, chills, numbness, paresthesias or gross motor weakness. They have tried icing, physical therapy exercises and anti-inflammatory medications for their symptoms. She would like to try another shoulder injection and more physical therapy today. SANE Score (0-100): SANE Score 11/16/2018 Left Shoulder Score 40 Medications Current Outpatient Prescriptions on File Prior to Visit Medication Sig Dispense Refill ??? albuterol (PROVENTIL;VENTOLIN) (2.5 MG/3ML) 0.083% nebulizer solution INHALE 3 ML BY NEBULIZATION 3 TIMES DAILY 0 ??? albuterol HFA (PROVENTIL;VENTOLIN;PROAIR) 108 (90 BASE) MCG/ACT inhaler ??? ALPRAZolam (XANAX) 0.5 MG tablet TK 1 T PO TID PRN 0 ??? ALPRAZolam (XANAX) 1 MG tablet 2 ??? atorvastatin (LIPITOR) 10 MG tablet Take 10 mg by mouth DAILY. 1 ??? budesonide-formoterol (SYMBICORT) 160-4.5 MCG/ACT inhaler Inhale 2 puffs by mouth BID. 1 Inhaler 5 ??? buprenorphine (BUTRANS) 5 MCG/HR patch Apply 1 patch to skin every 7 days DX M54.12 4 patch 0 ??? Cyanocobalamin (VITAMIN B 12) 100 MCG Take by mouth. ??? cyclobenzaprine (FLEXERIL) 10 MG tablet TK 1 T PO TID PRN 0 ??? furosemide (LASIX) 20 MG tablet TK 1 T PO D 0 ??? lamoTRIgine (LAMICTAL) 25 MG tablet TK 2 TS PO QD 0 ??? Melatonin 1 MG Take by mouth. ??? Misc Natural Products (OCTACOSANOL) 1000-5 MCG-UNIT Take by mouth. ??? nystatin (MYCOSTATIN) 504822 UNIT/GM powder 0 ??? omeprazole (PRILOSEC) 20 MG capsule 2 ??? ondansetron (ZOFRAN) 8 MG tablet TK 1 T PO Q 8 H PRN 0 ??? oxyCODONE 20 MG TK 1 T PO Q 4 TO 6 H 0 ??? pantoprazole EC (PROTONIX) 40 MG tablet Take 40 mg by mouth DAILY. 30 tablet 3 ??? PARoxetine (PAXIL) 40 MG tablet TK ONE AND SS TS PO QD 3 ??? pregabalin (LYRICA) 75 MG capsule 0 ??? promethazine (PHENERGAN) 25 MG tablet Take 25 mg by mouth q6h PRN (Nausea). 30 tablet 0 ??? QUEtiapine (SEROQUEL) 100 MG tablet TK 1 T PO QD HS 0 ??? SENEXON-S 8.6-50 MG tablet TK 2 TS PO QD 1 ??? SENNA PLUS 8.6-50 MG tablet TK 2 TS PO QD 1 ??? SUMAtriptan (IMITREX) 50 MG tablet 0 ??? traZODone (DESYREL) 50 MG tablet TK 1 T PO EVERYDAY AT BEDTIME 0 No current facility-administered medications on file prior to visit. Allergies as of 11/16/2018 - Castillo as Reviewed 11/16/2018 Allergen Reaction Noted ??? Penicillins Rash 11/03/2012 ??? Codeine Other 11/03/2012 ??? Epinephrine Other 11/03/2012 Past Medical History: Diagnosis Date ??? High cholesterol Past Surgical History: Procedure Laterality Date ??? Back Surgery ??? BIOPSY ??? HX SPINAL FUSION ??? PA FEMUR/KNEE SURG UNLISTED both knees ??? LUTHER TOOTH EXTRACTION 14 Point review of systems was otherwise negative [...] Father ??? None Known Brother Status: Alive Otherwise reviewed and non-contributory Physical Exam: BP 121/91 (BP SITE: LEFT ARM, BP POSITION: SITTING, BP CUFF SIZE: 11L) Ht 1.6 m (5' 3 ) Awake, alert and oriented. Gait is normal. No cervical spine tenderness and full neck range of motion in all 6 directions. No step off or deformity noted. Evaluation of the uninjured right shoulder noted no skin lesions, neurovascularly intact. There wasno tenderness/swelling/deformity. Ligamentously stable glenohumeral joint. Good active and passive range of motion. 5/5 strength in elevation. The left shoulder is neurovascularly intact with no active skin lesions. There is no scapular winging. There is tenderness of the AC joint, clavicle and periscapular muscles. There is restricted passive range of motion (120 deg elevation). There is restricted active range of motion (120 deg elevation). Strength for elevation in the scapular plane is 5/5. There is not a sulcus sign. There is no generalized ligamentous laxity. Anterior apprehension is negative. Relocation test is negative. Posterior apprehension is negative. Mchenry's test is negative. Shoulder impingement test is positive. Imaging: shoulder X-rays images and report re-reviewed by me today are positive for mild glenohumeral arthritis. Impression: Left scapulothoracic shoulder pain Plan: We recommended that they try the following to treat their injury: icing, physical therapy exercises, anti-inflammatory medications and corticosteroid injection given in clinic today. Patient can follow up as needed. Please do not hesitate to contact me with questions regarding her or any other patient in the future. Our clinical nurse, Fransico Kim, can be reached at and by email at [email or web address]. Sincerely, Wai Lowry MD * Isabelle Manzano - 11/16/2018 12:45 PM CDT Left shoulder pain f/u. Pt has been seeing Dr. Ornelas for pain management. documented in this encounter Procedure Notes * Wai Lowry MD - 11/16/2018 2:15 PM CDTAssociated Order(s): PROCDOC LARGE JOINT INJECTION Procedure(s): PA DRAIN/INJECT LARGE JOINT/BURSA Pre-Procedure Diagnose(s): Chronic left shoulder pain INJECTION PROCEDURE NOTE: The injection site was marked. A timeout was performed. Under sterile conditions, without complications, tolerated well by the patient, 4 cc lidocaine and 80 mg (2 cc) triamcinolone were injected into the left subacromial space posteriorly. documented in this encounter Miscellaneous Notes * Addendum Note - Fransico Kim RN - 2018 2:17 PM CDTAddended by: FRANSICO KIM on: 2018 02:17 PM Modules accepted: Orders documented in this encounter Plan of Treatment Not on file documented as of this encounter Procedures Procedure Name Priority Date/Time Associated Diagnosis Comments PA DRAIN/INJECT LARGE JOINT/BURSA Routine 11/16/2018 2:26 PM CDT Chronic left shoulder pain documented in this encounter Results * PA DRAIN/INJECT LARGE JOINT/BURSA (11/16/2018 2:26 PM CDT) [...] in this encounter Visit Diagnoses Diagnosis Chronic left shoulder pain- Primary Pain in joint, shoulder region Chronic left hip pain Pain in joint, pelvic region and thigh documented in this encounter Administered Medications Inactive Administered Medications - up to 3 most recent administrations Medication Order MAR Action Action Date Dose Rate Site lidocaine (XYLOCAINE MPF) 1 % injection Intra-articular, ONCE, 1 dose, On Wed11/16/18 at 1345 $ Given 11/16/2018 1:16 PM CDT 4 mL Left Shoulder triamcinolone acetonide (KENALOG-40) injection 80 mg 80 mg, Intra-articular, ONCE, 1 dose, On Wed11/16/18 at 1345, Shake well before using. $ Given 11/16/2018 1:17 PM CDT 80 mg Left Shoulder documented in this encounter Care Teams Bale Stacker Relationship Specialty Start Date End Date Blake Lindsey MD [address] [place] [address] PCP - General 05/20/16 documented as of this encounter
--- OUTSIDE RECORDS SUMMARY | 2024-07-29 17:22 | XMS_ITS | Encounter Summary ---
Author Organization [facility] Address [address] [place] [address] Care Team Providers Care Software Engineer Advisor Name Role Phone Blake Lindsey MD Primary Care Provider [phone] Reason for Referral * Radiology Services (Routine) - Closed Specialty Diagnoses / Procedures Referred By Ariel cano Referred To Contact CT Scan Diagnoses Parotid nodule Procedures CT NECK SOFT TISSUE W CONT Nia Augustin APRN-CNP [address] [place] [id number] Referral ID Status Reason Start Date Expiration Date Visits Re quested Visits Authorized [id number] Closed 09/26/2020 09/26/2021 1 1 TING OPERATOR Encounter Details Date Type Department Care Team (Late st Contact Info) Description 09/26/2020 Orders Only [facility] [address] [place] [phone] Nia Augustin APRN-CNP [address] [place] [phone] Parotid nodule Social History Tobacco Use Types [...] * CT NECK SOFT TISSUE W CONT (10/18/2020 1:19 PM CDT) Anatomical Region Laterality Modality Head Computed Tomogra phy 10/18/2020 2:02 PM CDT Impressions 10/18/2020 3:35 PM CDT IMPRESSION: 1.2 soft tissue nodules in the superficial lobe of the left parotid gland, stable since the PET/CT from 02/13/[address] cervical spine from 07/19/2018. 2.Few enlarged lymph nodes in the neck. 1 x 0.8 cm left level 2B lymph node, new since 08/15/2020. Stable 1 x 0.8 cm left level 2A lymph node. Dictated by Balta Arellano DO (residential treatment staff) I, Dr. JAJA AKERS have personally reviewed and interpreted this examination/study. This report was electronically signed by JAJA AKERS ??on 10/18/2020 3:35 PM . Narrative 10/18/2020 3:35 PM CDT EXAMINATION: Computed tomography (CT) of the neck with contrast HISTORY: K11.8: Parotid nodule TECHNIQUE: CT of the neck was performed following the uneventful administration of 100 mL Isovue-370 contrast according to standard protocol. COMPARISON: Correlation is made with PET/CT whole body dated 02/13/2019 FINDINGS: There is a 0.8 x 1 x 1.2 cm left superficial intraparotid nodule with rim enhancement and central hypodensity. There is a solid 1.4 x 0.6 cm lobulated lesion in the inferior parotid gland superficial lobe, stable. There are scattered subcentimeter lymph nodes at level 2 bilaterally. The largest lymph node on the left measures approximately 1 x 0.8 cm on series 3 image 57. This appears new since 08/15/2020. The largest lymph node on the right measures 1 x 0.8 cm on image 50 which appears stable since 08/15/2020. There is a 0.6 cm supraclavicular lymph node (series 3, image 85). The muscles of the neck appear normal. There is a two-vessel aortic arch. The cervical internal carotid arteries and internal jugular veins appear normal. Fascial planes are preserved and the deep spaces of the neck appear normal. The visualized airway appears normal. The visualized portions of the posterior fossa and brain appear normal. Partially visualized posterior the visualized hardware appears intact. There are mild degenerative changes of the visualized spine. Cervicothoracic spinal fusion with rods and screws. The patient is edentulous. The visualized orbits and paranasal sinuses appear normal. The visible lung apices are clear. Procedure Note Jaja Akers MD - 10/18/2020 EXAMINATION: Computed tomography (CT) of the neck with contrast HISTORY: K11.8: Parotid nodule TECHNIQUE: CT of the neck was performed following the uneventful administration of 100 mL Isovue-370 contrast according to standard protocol. COMPARISON: Correlation is made with PET/CT whole body dated 02/13/2019 FINDINGS: There is a 0.8 x 1 x 1.2 cm left superficial intraparotid nodule withrim enhancement and central hypodensity. There is a solid 1.4 x 0.6 cm lobulated lesion in the inferior parotid gland superficial lobe, stable. There are scattered subcentimeter lymph nodes at level 2 bilaterally.The largest lymph node on the left measures approximately 1 x 0.8 cm onseries 3 image 57. This appears new since 08/15/2020. The largest lymph node on the right measures 1 x 0.8 cm on image 50 which appears stable since 08/15/2020. There is a 0.6 cm supraclavicular lymph node (series 3, image 85). The muscles of the neck appear normal. There is a two-vessel aorticarch. The cervical internal carotid arteries and internal jugular veins appear normal. Fascial planes are preserved and the deep spaces of the neck appear normal. The visualized airway appears normal. The visualized portions of the posterior fossa and brain appear normal. Partially visualized posterior the visualized hardware appears intact. There are mild degenerative changes of the visualized spine. Cervicothoracicspinal fusion with rods and screws. The patient is edentulous. The visualized orbits and paranasal sinuses appear normal. The visible lung apices are clear. IMPRESSION: 1.2 soft tissue nodules in the superficial lobe of the left parotidgland, stable since the PET/CT from 02/13/[address] cervical spine from 07/19/2018. 2.Few enlarged lymph nodes in the neck. 1 x 0.8 cm left level 2B lymph node, new since 08/15/2020. Stable 1 x 0.8 cm left level 2A lymph node. Dictated by Balta Arellano DO (residential treatment staff) I, Dr. JAJA AKERS have personally reviewed and interpreted this examination/study. This report was electronically signed by JAJA AKERS on 10/18/2020 3:35PM . Nia Augustin DIAL MAKER-CASH PERSON CT ORDERABLES documented in this encounter Visit Diagnoses Diagnosis Parotid nodule- Primary Other specified diseases of the salivary glands Parotid nodule Other specified diseases of the salivary glands documented in this encounter Care Teams Software Engineer Advisor Relationship Specialty Start Date End Date Blake Lindsey MD [address] [place] [address] PCP - General 05/20/16 documented as of this encounter
--- OUTSIDE RECORDS SUMMARY | 2024-07-29 17:22 | XMS_ITS | Encounter Summary ---
Author Organization [facility] Address [address] [address] Care Team Providers Care Onsite Health Coach Name Role Phone Blake Lindsey MD Primary Care Provider [phone] Reason for Referral * Radiology Services (Routine) - Closed Specialty Diagnoses / Procedures Referred By Contac t Referred To Contact Positron Emission Tomography Diagnoses Hodgkin lymphoma of extranodal or solid organ site (HCC) Hodgkin lymphoma, unspecified Hodgkin lymphoma type, unspecified body region (HCC) Procedures PET CT WHOLE BODY Castillo Max MD [address] [place] [address] [address] [place] [address] [facility] [address] [place] [phone] Referral ID Status Reason Start Date Expiration Date Visits Re quested Visits Authorized [id number] Closed 01/19/2019 07/18/2019 1 1 Encounter Details Date Type Department Care Team (Late st Contact Info) Description 01/19/2019 Orders Only [facility]-[address] [address] Reba Du RN Hodgkin lymphoma, unspecified Hodgkin lymphoma type, unspecified body region (HCC) ; Night sweats; History of bruising easily; Hodgkin lymphoma of extranodal or solid organ site Social History Tobacco Use Types Packs/Day Years [...] documented as of this encounter Results * PET CT WHOLE BODY (02/13/2019 12:14 PM CDT) Anatomical Region Laterality Modality Positron Emissio n [...] clinical correlation. This report was approved ??by Charlie Alexis ?? on 02/13/2019 1:44 PM . I, Dr. MARSHAL PATEL, D.O. have personally reviewed and interpreted this examination/study. This report was electronically signed by MARSHAL PATEL D.O. ??on 02/13/2019 4:32 PM . Narrative [...] increase in FDG uptake. Procedure Note Marshal Patel, DO - 02/13/2019 Procedure: PET/CT Study. Referring [...] clinical correlation. This report was approved by Charlie Alexis on 02/13/2019 1:44 PM . I, Dr. MARSHAL PATEL D.O. have personally reviewed and interpreted this examination/study. This report was electronically signed by MARSHAL PATEL D.O. on02/13/2019 4:32 PM . Castillo Max MD NM ORDERABLES * PTT [facility] (01/19/2019 3:14 PM CDT) APTT 31.0 23.0 - 38.4 Seconds 01/19/2019 3:53 PM CDT [facility] Comment: * Please Note: New therapeutic range for heparin therapy. * Suggested therapeutic range for full dose I.V. heparin therapy for venous thromboembolism is 65 to 103 seconds. Blood BLOOD SPECIMEN / Unknown Lab Venipuncture / Unknown 01/19/2019 3:14 PM CDT 01/19/2019 3:22 PM CDT Castillo Max MD LAB - COAGULATION ORDERABLES [address] [phone] * PT-INR [facility] (01/19/2019 3:14 PM CDT) PT 12.3 12.1 - 14.8 Seconds 01/19/2019 3:52 PM CDT [facility] INR 1.0 See Comment 01/19/2019 3:52 PM CDT [facility] Comment: The suggested therapeutic range for standard coumadin (warfarin) therapy is an INR of 2.0-3.0. For high-risk patients (Mechanical Mitral Valve Prosthesis, etc.), the suggested prophylactic therapeutic range is an INR of 2.5-3.5. Blood BLOOD SPECIMEN / Unknown Lab Venipuncture / Unknown 01/19/2019 3:14 PM CDT 01/19/2019 3:22 PM CDT Castillo Max MD LAB - COAGULATION ORDERABLES [facility] [address] [phone] * (01/19/2019 3:14 PM CDT) Pathologist [facility] 37.4 mIU/mL 01/21/2019 7:11 AM CDT [facility] ([facility]) Comment: ?Adult Female: ?Follicular phase ?2.4 - ??12.6 ?Ovulation phase ?14.0 - ??95.6 ?Luteal phase ?1.0 - ??11.4 ?Postmenopausal ?7.7 - ??58.5 Blood BLOOD SPECIMEN / Unknown Lab Venipuncture / Unknown 01/19/2019 3:14 PM CDT 01/19/2019 3:22 PM CDT Narrative [facility] ([facility]) - 01/21/2019 7:11 AM CDT Performed at: ??01 - [facility] [address], [place], [place] [id number] Clinical Review Nurse: Edison Chavez PhD, Phone: ??[phone] Castillo Max MD LAB - CHEMISTRY OR DERABLES [facility] ([facility]) [address] [place] [address] * ESTRADIOL (01/19/2019 3:14 PM CDT) Estradiol 7.2 pg/mL 01/21/2019 4:08 AM CDT [facility] ([facility]) Comment: ?Adult Female: ?Follicular phase ?? 12.5 - ?? 166.0 ?Ovulation phase ?85.8 - ?? 498.0 ?Luteal phase ? 43.8 - ?? 211.0 ?Postmenopausal ? <6.0 - ?54.7 ?1st trimester ? 215.0 - >4300.0 ?Girls (1-10 years) ?6.0 - ?27.0 Luis ECLIA methodology Blood BLOOD SPECIMEN / Unknown Lab Venipuncture / Unknown 01/19/2019 3:14 PM CDT 01/19/2019 3:22 PM CDT Narrative [facility] ([facility]) - 01/21/2019 4:08 AM CDT Performed at: ??01 - [facility] [address] [facility], [place], [place] ??[id number] Clinical Review Nurse: Edison Chavez PhD, Phone: ??[phone] Castillo Max MD LAB - CHEMISTRY OR DERABLES Performing Organization Address [facility] Co de Phone Number [facility] ([facility]) [address] * [facility] (01/19/2019 3:14 PM CDT) [facility] 68.5 mIU/mL 01/21/2019 7:11 AM CDT [facility] ([facility]) Comment: ?Adult Female: ?Follicular phase ?3.5 - ??12.5 ?Ovulation phase ? 4.7 - ??21.5 ?Luteal phase ?1.7 - ?? 7.7 ?Postmenopausal ? 25.8 - 134.8 Blood BLOOD SPECIMEN / Unknown Lab Venipuncture / Unknown 01/19/2019 3:14 PM CDT 01/19/2019 3:22 PM CDT Narrative [facility] ([facility]) - 01/21/2019 7:11 AM CDT Performed at: ??01 - [facility] [address] [place], [place] ??[id number] Clinical Review Nurse: Edison Chavez PhD, Phone: ??[phone] Castillo Max MD LAB - CHEMISTRY OR DERABLES Performing Organization Address [facility] de Phone Number [facility] ([facility]) [address] [place] [phone] documented in this encounter Visit Diagnoses Diagnosis Hodgkin lymphoma, unspecified Hodgkin lymphoma type, unspecified body region (HCC)- Primary Night sweats Generalized hyperhidrosis History of bruising easily Hodgkin lymphoma, unspecified Hodgkin lymphoma type, unspecified body region (HCC) documented in this encounter Care Teams Onsite Health Coach Relationship Specialty Start Date End Date Blake Lindsey MD [address] [place] [id number] PCP - General 05/20/16 documented as of this encounter
--- OUTSIDE RECORDS SUMMARY | 2024-07-29 17:22 | XMS_ITS | Encounter Summary ---
Author Organization [facility] Address [address] [place] [address] Care Team Providers Care Ripening Room Hand Name Role Phone Blake Lindsey MD Primary Care Provider [phone] Reason for Visit * Reason Comments Depression patient tearful, dep ressed. patient states, Too many things piling up at once patient denies SI/HI at this time. Encounter Details Date Type Department Care Team (Late st Contact Info) Description 06/12/2018 3:09 PM AUDIO ENGINEER - 06/12/2018 3:36 PM [facility] Emergency [facility] [address] [place] [id number] Depression, unspecified depression type Discharge Disposition: Home or Self Care Social [...] Sign Reading Time Taken Comments Blood Pressure 145/93 06/12/2018 2:52 PM AUDIO ENGINEER Pulse 95 06/12/2018 2:52 PM AUDIO ENGINEER Temperature 36.8 ??C (98.3 ??F) 06/12/2018 2:52 PM CS T Respiratory Rate 18 06/12/2018 2:52 PM AUDIO ENGINEER Oxygen Saturation 97% 06/12/2018 2:52 PM AUDIO ENGINEER Inhaled Oxygen Concentration - - Weight 99.8 kg (220 lb) 06/12/2018 2:52 PM AUDIO ENGINEER Height 160 cm (5' 3 ) 06/12/2018 2:52 PM AUDIO ENGINEER Body Mass Index 38.97 06/12/2018 2:52 PM AUDIO ENGINEER documented in this encounter Discharge Instructions * Discharge Instructions* Loi Vaughn, JUWAN-AUDIO VIDEO MECHANIC - 06/12/2018 3:16 PM AUDIO ENGINEER Depression WHAT YOU NEED TO KNOW: Depression is a medical condition that causes feelings of sadness or hopelessness that do not go away. Depression may cause you to lose interest in things you used to enjoy. These feelings may interfere with your daily life. DISCHARGE INSTRUCTIONS: Call your local emergency number (911 in the ) if: ?? You think about harming yourself or someone else. ?? You have done something on purpose to hurt yourself. Call your therapist or doctor if: ?? Your symptoms do not improve. ?? You cannot make it to your next appointment. ?? You have new symptoms. ?? You have questions or concerns about your condition or care. The following resources are available at any time to help you, if needed: ?? National Suicide Prevention Lifeline: (2-413-636-TALK) ?? Suicide Hotline: (8-771-CNMHRXX) ?? For a list of international numbers: https://save.org/find-help/international-resources/ Medicines: ?? Antidepressants may be given to improve or balance your mood. You may need to take this medicinefor several weeks before you begin to feel better. ?? Take your medicine as directed. Contact your healthcare provider if you think your medicine is not helping or if you have side effects. Tell him of her if you are allergic to any medicine. Keep a list of the medicines, vitamins, and herbs you take. Include the amounts, and when and why you take them. Bring the list or the pill bottles to follow-up visits. Carry your medicine list with you in case of an emergency. Therapy is often used together with medicine to relieve depression. Therapy is a way for you to talk about your feelings and anything that may be causing depression. Therapy can be done alone or in agroup. It may also be done with family members or a significant other. Self-care: ?? Get regular physical activity. Try to be active for 30 minutes, 3 to 5 days a week. Physical activity can help relieve depression. Work with your healthcare provider to develop a plan that you enjoy. It may help to ask someone to be active with you. ?? Create a regular sleep schedule. A routine can help you relax before bed. Listen to music, read,or do yoga. Try to go to bed and wake up at the same time every day. Sleep is important for emotional health. ?? Eat a variety of healthy foods. Healthy foods include fruits, vegetables, whole-grain breads, low-fat dairy products, lean meats, fish, and cooked beans. A healthy meal plan is low in fat, salt, and added sugar. ?? Do not drink alcohol or use drugs. Alcohol and drugs can make depression worse. Talk to your therapist or doctor if you need help quitting. Follow up with your healthcare provider as directed: Your healthcare provider will monitor your progress at follow-up visits. He or she will also monitor your medicine if you take antidepressants. Your healthcare provider will ask if the medicine is helping. Tell him or her about any side effects or problems you may have with your medicine. The type or amount of medicine may need to be changed. Write down your questions so you remember to ask them during your visits. ?? Copyright [employer] 2018 Information is for End User's use only and may not be sold, redistributed or otherwise used for commercial purposes. All illustrations and images included in CareNotes?? are the copyrighted property of [employer] or [employer] The above information is an educational resource center teacher only. It is not intended as medical advice for individual conditions or treatments. Talk to your doctor, nurse or pharmacist before following any medical regimen to see if it is safe and effective for you. O ENGINEER documented in this encounter Medications at Time of Discharge Medication Sig Dispensed Refills Start Date End Date ALPRAZolam (XANAX) 1 MG tablet 2 05/24/2017 11/17/2018 atorvastatin (LIPITOR) 10 MG tablet Take 10 mg by mouth DAILY. 1 05/25/2017 01/12/2019 budesonide-formoterol (SYMBICORT) 160-4.5 MCG/ACT inhaler Inhale 2 puffs by mouth BID. 1 Inhaler 5 08/16/2017 01/12/2019 Cyanocobalamin (VITAMIN B 12) 100 MCG Take by mouth. 04/18/2017 01/12/2019 Furosemide (LASIX PO) 2018 Melatonin 1 MG Take by mouth. 09/09/2016 11/17/2018 Misc Natural Products (OCTACOSANOL) 1000-5 MCG-UNIT Take by mouth. 09/09/2016 11/17/2018 nystatin (MYCOSTATIN) 648076 UNIT/GM powder 0 09/24/20172018 omeprazole (PRILOSEC) 20 MG capsule 2 04/02/2017 11/17/2018 pantoprazole EC (PROTONIX) 40 MG tablet Take 40 mg by mouth DAILY. 30 tablet 3 04/18/2017 11/17/2018 PARoxetine HCl (PAXIL PO) 10/24/2018 pregabalin (LYRICA) 75 MG capsule 0 10/01/2017 11/17/2018 promethazine (PHENERGAN) 25 MG tablet Take 25 mg by mouth q6h PRN (Nausea). 30 tablet 0 04/19/2017 11/17/2018 SUMAtriptan (IMITREX) 50 MG tablet 0 05/26/2017 01/12/2019 documented as of this encounter ED Notes * Kanika Thapa, RADHA - 06/12/2018 3:34 PM CST Pt has been speaking with teller manager regarding where she can go to talk to someone about her feelings of depression, denies she is suicidal or homicidal, she is agreeable to discharge with paperwork to call for appointment with therapist, understands to call 911 or suicide hotline if feelings of depressionworsen and turn to suicidal feelings O ENGINEER * Loi Vaughn, HIP HOP ARTIST-AUDIO VIDEO MECHANIC - 06/12/2018 3:09 PM CST Provider contact with the patient: 06/12/2018 15:09 Lakeisha Alejandra [id number] [facility] History Chief Complaint Patient presents with ??? Depression patient tearful, depressed. patient states, Too many things piling up at once patient denies SI/HI at this time. Patient is a 47 y.o. female presenting with mental health disorder. 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 teacher used: No Behavioral Health Concerns Presenting symptoms: depression Presenting symptoms: no aggressive behavior, no agitation, no bizarre behavior, no delusions, no disorganized speech, no disorganized thought process, no hallucinations, no homicidal ideas, no paranoid behavior, no self-mutilation, no suicidal thoughts, no suicidal threats and no suicide attempt Degree of incapacity (severity): Mild Onset quality: Gradual Timing: Constant Progression: Waxing and waning Chronicity: Chronic Context: medication (taking her depression meds as prescribed) and stressful life event (fiance left her this week) Context: not alcohol use, not drug abuse, not noncompliant and not recent medication change Treatment compliance: All of the time Relieved by: Nothing Worsened by: Family interactions Ineffective treatments: Antidepressants Associated symptoms: appetite change, fatigue and irritability Associated symptoms: no abdominal pain, no anhedonia, no anxiety, no chest pain, no decreased need for sleep, not distractible, no euphoric mood, no feelings of worthlessness, no headaches, no hypersomnia, no hyperventilation, no insomnia, no poor judgment, no school problems and no weight change Fatigue: Severity: Mild Timing: Intermittent Progression: Waxing and waning Risk factors: hx of mental illness Risk factors: no family hx of mental illness, no family violence, no hx of suicide attempts, no neurological disease and no recent psychiatric admission (some years ago she had an admission in [place]) Past Medical History: Diagnosis Date ??? High cholesterol Past Surgical History: Procedure Laterality Date ??? Back Surgery ??? BIOPSY ??? HX SPINAL FUSION ??? [place] FEMUR/KNEE SURG UNLISTED both knees ??? LUTHER TOOTH EXTRACTION Family History Problem Relation Age of Onset ??? Heart Disease Mother Status: Alive ??? Diabetes Mother ??? Hypertension Mother ??? Cancer Father Status: Alive ??? Heart Disease Father ??? None Known Brother Status: Alive Social History Social History ??? Marital status: Single Spouse name: N/A ??? Number of children: N/A ??? Years of education: N/A Occupational History ??? Not on file. Social History Main Topics ??? Smoking status: Former Smoker Packs/day: 1.00 Quit date: 11/30/1997 ??? Smokeless tobacco: Never Used ??? Alcohol use 0.5 oz/week ??? Drug use: No ??? Sexual activity: Not on file Other Topics Concern ??? Not on file Social History Narrative Allergies Allergen Reactions ??? Penicillins Rash ??? Codeine Other Passes out ??? Epinephrine Other When injected in mouth for dental procedures, makes extremities go numb Review of Systems Review of Systems Constitutional: Positive for appetite change, fatigue and irritability. Negative for chills, diaphoresis, fever, malaise/fatigue and weight loss. HENT: Negative for congestion, ear discharge, ear pain, hearing loss, nosebleeds, sinus pain, sore throat and tinnitus. Eyes: Negative for blurred vision, double vision, photophobia, pain, discharge and redness. Respiratory: Negative for cough, hemoptysis, sputum production, shortness of breath, wheezing and stridor. Cardiovascular: Negative for chest pain, palpitations, orthopnea, claudication, leg swelling and PND. Gastrointestinal: Negative for abdominal pain, blood in stool, constipation, diarrhea, heartburn, melena, nausea and vomiting. Genitourinary: Negative for dysuria, flank pain, frequency, hematuria and urgency. Musculoskeletal: Negative for back pain, falls, joint pain, myalgias and neck pain. Skin: Negative for itching and rash. Neurological: Negative for dizziness, tingling, tremors, sensory change, speech change, focal weakness, seizures, loss of consciousness, weakness and headaches. Endo/Heme/Allergies: Negative for environmental allergies and polydipsia. Does not bruise/bleed easily. Psychiatric/Behavioral: Positive for depression. Negative for agitation, hallucinations, homicidal ideas, memory loss, paranoia, self-injury, substance abuse and suicidal ideas. The patient is not nervous/anxious and does not have insomnia. Physical Exam BP 145/93 Pulse 95 Temp 98.3 ??F (36.8 ??C) Resp 18 Ht 1.6 m (5' 3 ) Wt 99.8 kg (220 lb) SpO2 97% BMI 38.97 kg/m2 Physical Exam Constitutional: She is oriented to person, place, and time. She appears well- developed and well-nourished. HENT: Head: Normocephalic and atraumatic. Right Ear: External ear normal. Left Ear: External ear normal. Nose: Nose normal. Mouth/Throat: Oropharynx is clear and moist. Eyes: Conjunctivae and EOM are normal. Pupils are equal, round, and reactive to light. Neck: Normal range of motion. Neck supple. Cardiovascular: Normal rate, regular rhythm, normal heart sounds and intact distal pulses. Pulmonary/Chest: Effort normal and breath sounds normal. Abdominal: Soft. Bowel sounds are normal. Musculoskeletal: Normal range of motion. Neurological: She is alert and oriented to person, place, and time. Skin: Skin is warm and dry. Psychiatric: Her speech is normal. Judgment and thought content normal. She exhibits a depressed mood. She expresses no homicidal and no suicidal ideation. Crying when she spoke about her fiance leaving her Nursing note and vitals reviewed. Medications Current Outpatient Prescriptions Medication Sig Dispense Refill ??? PARoxetine HCl (PAXIL PO) ??? Furosemide (LASIX PO) ??? nystatin (MYCOSTATIN) [id number] UNIT/GM powder 0 ??? pregabalin (LYRICA) 75 MG capsule 0 ??? budesonide-formoterol (SYMBICORT) 160-4.5 MCG/ACT inhaler Inhale 2 puffs by mouth BID. 1 Inhaler 5 ??? ALPRAZolam (XANAX) 1 MG tablet 2 ??? omeprazole (PRILOSEC) 20 MG capsule 2 ??? atorvastatin (LIPITOR) 10 MG tablet Take 10 mg by mouth DAILY. 1 ??? SUMAtriptan (IMITREX) 50 MG tablet 0 ??? promethazine (PHENERGAN) 25 MG tablet Take 25 mg by mouth q6h PRN (Nausea). 30 tablet 0 ??? pantoprazole EC (PROTONIX) 40 MG tablet Take 40 mg by mouth DAILY. 30 tablet 3 ??? Cyanocobalamin (VITAMIN B 12) 100 MCG Take by mouth. ??? Melatonin 1 MG Take by mouth. ??? Misc Natural Products (OCTACOSANOL) 1000-5 MCG-UNIT Take by mouth. Procedures Procedures ECG Interpretation ECG Interpretation Lab/SPO2 Interpretation No results found for this visit on 06/12/18. No orders to display Progress Notes Pt is not suicidal or homicidal. Pt wants her paxil increased, advised she have close follow up with her psychologist who can titrate her depression medications. Pt verbalized understanding. Behavioral health community resources were given to pt. ED Course ED Course Medical Decision Making I have reviewed the: Previous Chart, Nursing Notes, Vitals. No orders of the defined types were placed in this encounter. Clinical Impression Final diagnoses: Depression, unspecified depression type O ENGINEER documented in this encounter Plan of Treatment Not on file documented as of this encounter Visit Diagnoses Diagnosis Depression, unspecified depression type documented in this encounter Care Teams Ripening Room Hand Relationship Specialty Start Date End Date Blkae Lindsey MD [address] [place] [address] PCP - General 05/20/16 documented as of this encounter
--- OUTSIDE RECORDS SUMMARY | 2024-07-29 17:22 | XMS_ITS | Encounter Summary ---
Author Organization [facility] Health Address [address] [place] [address] Care Team Providers Care Director Of Strategic Initiatives Name Role Phone Blake Lindsey MD Primary Care Provider [phone] Encounter Details Date Type Department Care Team (Late st Contact Info) Description 08/08/2018 Orders Only [facility] - Orthopedics [address] [place] [id number] Dave Wadsworth RN Thoracic back pain, unspecified back pain laterality, unspecified chronicity Social History Tobacco Use Types Packs/Day Years [...] as of this encounter Results * XR SPINE ENTIRE 2 OR 3VW (08/08/2018 10:37 AM CRANE SERVICE TECHNICIAN) Anatomical Region Laterality Modality Radiographic Jonna ging 08/08/2018 4:03 PM CRANE SERVICE TECHNICIAN Impressions 08/09/2018 8:54 AM CRANE SERVICE TECHNICIAN IMPRESSION: 1.C5-T12 posterior spinal fusion, unchanged. 2.T6 compression deformity, unchanged. Dictated by Frantz Loaiza MD (assistant to the president). Dr. EMIL Muller MD have personally reviewed and interpreted this examination/study. This report was electronically signed by EMIL MALONE MD ??on 08/09/2018 8:54 AM . Narrative 08/09/2018 8:54 AM CRANE SERVICE TECHNICIAN EXAMINATION: XR SPINE ENTIRE 2 OR 3VW [...] mild degeneration is seen. Procedure Note Emil Malone MD - 08/09/2018 EXAMINATION: XR SPINE ENTIRE [...] deformity, unchanged. Dictated by Frantz Loaiza MD (assistant to the president). Dr. EMIL Muller MD have personally reviewed and interpreted this examination/study. This report was electronically signed by EMIL MALONE MD on08/09/2018 8:54 AM . Pooria Salari MD DIAGNOSTIC IMAGING O RDERABLES documented in this encounter Visit Diagnoses Diagnosis Thoracic back pain, unspecified back pain laterality, unspecified chronicity- Primary documented in this encounter Care Teams Director Of Strategic Initiatives Relationship Specialty Start Date End Date Blake Lindsey MD [address] [place] [address] PCP - General 05/20/16 documented as of this encounter
--- OUTSIDE RECORDS SUMMARY | 2024-07-29 17:22 | XMS_ITS | Encounter Summary ---
Author Organization [facility] Address [address] [place] [address] Care Team Providers Care Wheel Setter Name Role Phone Blake Lindsey MD Primary Care Provider [phone] Reason for Visit * Radiology Services (Routine) - Closed Specialty Diagnoses / Procedures Referred By Contzohreh t Referred To Contact Mammography Diagnoses Disorder of breast Breast lump Procedures US BREAST LEFT LTD Castillo Max MD [address] [place] [address] [facility] Op [address] [place] [address] Referral ID Status Reason Start Date Expiration Date Visits Re quested Visits Authorized [id number] Closed 11/28/2018 05/27/2019 1 1 Encounter Details Date Type Department Care Team (Latest Contact Info) Description 11/28/2018 1:54 PM CDT - 11/28/2018 11:59 PM CDT Hospital Encounter [facility] [address] [place] [address] Castillo Max MD [address] [place] [address] Discharge Disposition: Home or Self [...] PO QD 0 10/21/2018 01/12/2019 nystatin (MYCOSTATIN) [id number] UNIT/GM powder 0 09/24/20172018 ondansetron (ZOFRAN) 8 [...] Procedure Name Priority Date/Time Associated Diagnosis Comments US BREAST LEFT LTD Routine 11/28/2018 2: 25 PM CDT Disorder of breast Breast lump documented in this encounter Results * US BREAST LEFT LTD (11/28/2018 2:25 PM CDT) Anatomical Region Laterality Modality Breast Left Mammography [...] sonography and digital palpation was performed by insurance specialist and physician throughout the inferior left breast. Multiple mobile lumps identified in this region on palpation correspond to fat lobules. No suspicious mass or dominant cyst is seen. This examination was subjected to CAD analysis. The results of this examination were discussed with the patient by Dr. Boyd. Castillo Max MD US ORDERABLES documented in this encounter Visit Diagnoses Diagnosis Disorder of breast Unspecified breast disorder Breast lump Lump or mass in breast documented in this encounter Care Teams Wheel Setter Relationship Specialty Start Date End Date Blake Lindsey MD [address] [place] [address] PCP - General 05/20/16 documented as of this encounter
--- OUTSIDE RECORDS SUMMARY | 2024-07-29 17:22 | XMS_ITS | Encounter Summary ---
Author Organization [facility] Health Address [address] [place] [address] Care Team Providers Care Scholastic Aptitude Test Grader Name Role Phone Blake Lindsey MD Primary Care Provider [phone] Reason for Referral * Consultation (Routine) - Closed Specialty Diagnoses / Procedures Referred By Contac t Referred To Contact Pain Management Diagnoses Low back pain, unspecified back pain laterality, unspecified chronicity, with sciatica presence unspecified Zuleika Mckeon MD [address] [facility] [place] [address] Andrea Ornelas MD [address] [place] [id number] Referral ID Status Reason Start Date Expiration Date V isits Requested Visits Authorized [id number] Closed Specialty Services Required 08/08/2018 02/04/2019 1 1 CTOR LABOR STANDARDS Reason for Visit * Reason Comments Pain Back * Evaluate & Treat (Routine) - Closed Specialty Diagnoses / Procedures Referred By Contact Referred To Contact Orthopedic Surgery / Orthopedics Blake Lindsey MD [address] [place] [address] Zuleika Mckeon MD [address] [place] [address] [place] [address] Referral ID Status Reason Start Date Expiration Date Visits Re quested Visits Authorized [id number] Closed 08/08/2018 02/04/2019 1 1 Encounter Details Date Type Department Care Team (Late st Contact Info) Description 08/08/2018 10:15 AM DIRECTOR LABOR STANDARDS Office Visit [facility] - Orthopedics [address] [place] [address], [place] [id number] Zuleika Mckeon MD [address] [place] [address] [place] [address] Low back pain, unspecified back pain laterality, unspecified chronicity, with sciatica presence unspecified (Primary Dx) Social History Tobacco Use Types [...] - Inhaled Oxygen Concentration - - Weight 94.5 kg (208 lb 6.4 oz) 08/08/2018 10:39 AM DIRECTOR LABOR STANDARDS Height 160 cm (5' 3 ) 08/08/2018 10:39 AM DIRECTOR LABOR STANDARDS Body Mass Index 36.92 08/08/2018 10:39 AM DIRECTOR LABOR STANDARDS documented in this encounter Patient Instructions * Patient Instructions* Luz Bettencourt RN - 08/08/2018 11:30 AM DIRECTOR LABOR STANDARDS [facility] Department of Orthopaedic Surgery Orthopaedic Spine Clinic Discharge Form Lakeisha Alejandra 08/08/2018 Thank you for coming in to see us today for your diagnosis of: Back Pain Recommended Treatment: Will initiate referral to pain management Please follow-up only as needed. Ms. Alejandra had a clinic appointment on 08/08/2018. Please call Gloria Bettencourt RN, at [phone] with any questions or concerns. CTOR LABOR STANDARDS documented in this encounter Progress Notes * Sivakumar Junior MD - 08/08/2018 10:58 AM CST [facility] Orthopedic Spine Surgery Clinic Note Lakeisha Alejandra, 47 y.o., female : 1970 CSN: [id number] Primary Care Physician: Blake Lindsey MD Diagnosis/Procedures 1.) 47 y.o. 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 Virk in 2014 Date of Injury: n/a Date of Surgery: 2014 Time Since injury/surgery: 4 years Date of this clinic visit: 08/08/2018 HPI This is a 47 y.o. female with history of metastic Hodgkin's lymphoma who is here for a follow-up clinic appointment, regarding LUE pain/weakness following an injury from her dog yanking on the leash.Patient states that this pain has mostly resolved but she is tearful today regarding generalized chronic pain. Patient has been taking 60-80mg of oxycodone daily for several years but per patient her primary doctor has recently stopped prescribing this to her. She has not yet been seen by a Pain management physician. She ambulates with a cane and wheelchair at baseline. Objective Ht 5' 3 (1.6 m) Wt 208 lb 6.4 oz (94.5 kg) BMI 36.92 kg/m2 PMHx Past Medical History: Diagnosis Date ??? High cholesterol PSHx Past Surgical History: Procedure Laterality Date ??? Back Surgery ??? BIOPSY ??? HX SPINAL FUSION ??? MI FEMUR/KNEE SURG UNLISTED both knees ??? LUTHER TOOTH EXTRACTION Social Hx Social History Substance Use Topics ??? Smoking status: Former Smoker Packs/day: 1.00 Quit date: 11/30/1997 ??? Smokeless tobacco: Never Used ??? Alcohol use 0.5 oz/week Family Hx family history includes Cancer in her father; Diabetes in her mother; Heart Disease in her father and mother; Hypertension in her mother; None Known in her brother. Allergies Allergies Allergen Reactions ??? Penicillins Rash ??? Codeine Other Passes out ??? Epinephrine Other When injected in mouth for dental procedures, makes extremities go numb Medications Current Outpatient Prescriptions Medication ??? PARoxetine HCl (PAXIL PO) ??? Furosemide (LASIX PO) ??? nystatin (MYCOSTATIN) 907225 UNIT/GM powder ??? pregabalin (LYRICA) 75 MG capsule ??? budesonide-formoterol (SYMBICORT) 160-4.5 MCG/ACT inhaler ??? ALPRAZolam (XANAX) 1 MG tablet ??? omeprazole (PRILOSEC) 20 MG capsule ??? atorvastatin (LIPITOR) 10 MG tablet ??? SUMAtriptan (IMITREX) 50 MG tablet ??? promethazine (PHENERGAN) 25 MG tablet ??? pantoprazole EC (PROTONIX) 40 MG tablet ??? Cyanocobalamin (VITAMIN B 12) 100 MCG ??? Melatonin 1 MG ??? Misc Natural Products (OCTACOSANOL) 1000-5 MCG-UNIT No current facility-administered medications for this visit. Review of Systems A 12 point review of systems was performed and was negative except for what was mentioned in the HPI Physical Exam General appearance: awake, cooperative, NAD. Tearful CV: Regular rate. Pulm: No audible wheezing, no use of accessory muscles Abd: soft, nontender, nondistended Musculoskeletal: Neck: - C-collar/Glades J: absent - Wounds: surgical incision well healed - Tenderness to palpation: absent - ROM: diminished range of motion Back: - Wounds: surgical incision well healed - Tenderness to palpation: TTP to mid T-spine - ROM: diminished range with pain. Posture: - Erect posture with no cervical thrust, list, or torticollis noted Bilateral Upper Extremity: - Motor: Shoulder Abduction 5/5 Elbow Extension 5/5 Elbow Flexion 5/5 Wrist Extension 5/5 Wrist Flexion 5/5 Finger Flexion 5/5 Finger Abduction 5/5 - Sensory: intact to light touch - Ruiz's sign is negative - Reflexes: Biceps: Normal Triceps: Normal BR: Normal Bilateral Lower Extremity: - Motor: Hip Flexion 4/5 Knee Flexion 4/5 Knee Extension 4/5 Ankle Dorsiflexion 5/5 Great Toe Extension 5/5 Ankle Plantarflexion 5/5 - Sensation: intact to light touch distally - Straight Leg Raise: negative bilaterally - Clonus: present - Reflexes: Knee Jerk: Normal Achilles: Normal Babinski: down going Imaging - XR full length spine taken and reviewed. Imaging demonstrates Instrumentation is intact and in place without evidence of loosening, subsidence, or failure Assessment/Plan: 47 y.o. 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 Virk in 2014 1. Patient was counseled to the nature of their diagnosis and demonstrated understanding. Questionssolicited and answered. 2. Recommend follow up with Pain management for treatment of chronic pain 3. PT/OT 4. Return to clinic PRN Sivakumar Junior MD 08/08/2018 10:59 AM CTOR LABOR STANDARDS Associated attestation - Zuleika Mckeon MD - 08/08/2018 12:21 PM DIRECTOR LABOR STANDARDS I have seen and examined the patient with the resident and I agree with the findings and plan of care as documented by resident. 08/08/18 Zuleika Mckeon MD [facility] Adult and Pediatric Spine Surgery documented in this encounter Plan of Treatment Not on file documented as of this encounter Results * AMB REFERRAL TO PAIN CLINIC (09/16/2018 9:45 AM DIRECTOR LABOR STANDARDS) Zuleika Mckeon MD OUTPATIENT REFERRALS documented in this encounter Visit Diagnoses Diagnosis Low back pain, unspecified back pain laterality, unspecified chronicity, with sciatica presence unspecified- Primary documented in this encounter Care Teams Scholastic Aptitude Test Grader Relationship Specialty Start Date End Date Blake Lindsey MD [address] [place] [address] PCP - General 05/20/16 documented as of this encounter
--- OUTSIDE RECORDS SUMMARY | 2024-07-29 17:22 | XMS_ITS | Encounter Summary ---
Author Organization [facility] Health Address [address] [place] [address] Care Team Providers Care Counselor Marriage And Family Name Role Phone Blake Lindsey MD Primary Care Provider [phone] Reason for Visit * Reason Comments Pain Neck Establish Care * Consultation (Routine) - Closed Specialty Diagnoses / Procedures Referred By Ariel t Referred To Contact Pain Management Diagnoses Low back pain, unspecified back pain laterality, unspecified chronicity, with sciatica presence unspecified Zuleika Mckeon MD [address] [facility] [place] [address] Andrea Ornelas MD [address] [place] [address] Referral ID Status Reason Start Date Expiration Date V isits Requested Visits Authorized [id number] Closed Specialty Services Required 08/08/2018 02/04/2019 1 1 Encounter Details Date Type Department Care Team (Late st Contact Info) Description 09/15/2018 10:00 AM GENERAL NEUROLOGIST Office Visit [facility] Pain Care [address] [place] [address] Zuleika Mckeon MD [address] [facility] [place] [address] Andrea Ornelas MD [facility] [address] Cervicalgia (Primary Dx); Low back pain, unspecified back pain laterality, unspecified chronicity, with sciatica presence unspecified; Primary osteoarthritis of left shoulder Social History Tobacco Use Types Packs/Day Years [...] Sign Reading Time Taken Comments Blood Pressure 130/88 09/15/2018 9:32 AM GENERAL NEUROLOGIST Pulse 112 09/15/2018 9:32 AM GENERAL NEUROLOGIST Temperature 35.8 ??C (96.5 ??F) 09/15/2018 9:32 AM CS T Respiratory Rate 20 09/15/2018 9:32 AM GENERAL NEUROLOGIST Oxygen Saturation - - Inhaled Oxygen Concentration - - Weight 93.8 kg (206 lb 12.8 oz) 09/15/2018 9:32 AM GENERAL NEUROLOGIST Height 160 cm (5' 3 ) 09/15/2018 9:32 AM GENERAL NEUROLOGIST Body Mass Index 36.63 09/15/2018 9:32 AM GENERAL NEUROLOGIST documented in this encounter Patient Instructions * Patient Instructions* Nia Reyez, RT(R) - 09/15/2018 10:11 AM GENERAL NEUROLOGIST dbs collected today. Will discuss medication management after uds results are discussed. Pt currently seeing psychiatrist for anxiety and depression. Currently using 4% solon pas frequently states they don't work as good as the 5% but insurance wont cover 5% lidocaine. Will order a TENS unit today. RAL NEUROLOGIST documented in this encounter Progress Notes * Andrea Ornelas MD - 09/16/2018 9:43 AM CST Lakeisha Alejandra is a 47 y.o. female 1970 Chief Complaint Patient presents with ??? Pain Neck ??? Establish Care New patient comes to office referred by Dr. Mckeon with back, shoulder, neck and arm pain that started in 2012. Pt. Rates pain on average from a 6-10/10 weekly with an average of 8/10. Today patient is rating pain at a 9/10 level. Pt. Describes the pain as shooting, aching and sharp. The pain is constant and associated with numbness, tingling, weakness, headache and bowel/bladder dysfunction. Coughing, sneezing, exercise, walking, sitting, standing, lying down, sexual activity, weather changes,cold, driving, rolling in bed, moving from sitting to standing, taking stairs and stress/fatigue make the pain worse. Heat and medications help the [...] ? BIOPSY ? HX SPINAL FUSION ? MI FEMUR/KNEE SURG UNLISTED ? both knees ??? [...] MCG-UNIT Take by mouth. ? nystatin (MYCOSTATIN) 024413 UNIT/GM powder ? 0 ??? omeprazole (PRILOSEC) [...] History of drug abuse or addiction ?? EXAM BP 130/88 Pulse 112 Temp 96.5 ??F (35.8 ??C) Resp 20 Ht 1.6 m (5' 3 ) Wt 93.8 kg (206 lb 12.8 oz) BMI 36.63 kg/m2 General appearance: alert, cooperative, no distress Skin: no rashes or other abnormalities are noted Nodes: no cervical, axillary or inguinal adenopathy ? Eyes: sclera and conjunctiva clear, EOMI and PERRL, lids normal Ears: canals clear, hearing intact to voice Nose: nares open; no septal deviation is noted Throat: no mucous membrane abnormalities no masses, thyroid not enlarged, no adenopathy Lungs: breath sounds normal bilaterally without audible wheezes Heart: regular rhythm and rate without murmurs Circulation: Carotid and pedal pulses are intact and symmetrical, no carotid bruits no clubbing Or periopheral edema Abdomen: soft without mass, non-tender ?? Musculoskeletal Extremities: no Nodules, edema Joint: Shoulder sore; elbow,wrist,hips,knees, ankles ranges of motion grossly normal Pyriformis tenderness- minimal Greater trochanteric bursa area tender ?? Muscle groups No tenderness, spasm in Splenius and para-spinous muscles No tenderness , spasm in trapezius, rhomboids, levator scapulae No tenderness to palpation in quadratus lumborum, para-spinous muscles ? Spine ? Posture normal ?? Cervical: Minimal range of motion yes pain with extension flexion rotation Thoracic: no pain with rotation, no spinous process tenderness Chest wall non tender Lumbar : Full range of motion. yes pain with extension flexion rotation ? Neuro:: Gait : Uses lambert to walk Motor 4-5/5 throughout unless noted Sensory grossly intact light touch,pinch, vibratory Reflexes symmetrical 2/2 UE diminished in LEs Hofffman negative Babinski down-going/no clonus ? SLRs negative bilaterally Assessment ? ICD-10-CM ?? 1. Cervicalgia M54.2 MI TENS FOUR LEAD 2. Low back pain, unspecified back pain laterality, unspecified chronicity, with sciatica presence unspecified M54.5 AMB REFERRAL TO PAIN CLINIC ? MI TENS FOUR LEAD 3. Primary osteoarthritis of left shoulder M19.012 ? Plan ?? Orders Placed This Encounter ??? MI TENS FOUR LEAD ?? Will f/u with PCP for further details regarding their discontinuation of the patient's pain meds. UDS today. F/u with results and discuss further treatment options. Will look into a TENS unit for the patient as well. ?? If the resident is involved, I examined the patient independantly from the resident. I have reviewed the labs and notes that are pertinent to the patient. I have discussed the plan with the patient and/or family. I have discussed the case with the resident and ask the you refer to their notes for details. After review of their notes and our discussion, if there are any additions, they will follow. dbs collected today. Will discuss medication management after uds results are discussed. Pt currently seeing psychiatrist for anxiety and depression. Currently using 4% solon pas frequently states they don't work as good as the 5% but insurance wont cover 5% lidocaine. Will order a TENS unit today RAL NEUROLOGIST * Indira Hernandez RN - 09/15/2018 9:20 AM CST New patient comes to office referred by Dr. Mckeon with back, shoulder, neck and arm pain that started in 2012. Pt. Rates pain on average from a 6-10/10 weekly with an average of 8/10. Today patient is rating pain at a 9/10 level. Pt. Describes the pain as shooting, aching and sharp. The pain is constant and associated with numbness, tingling, weakness, headache and bowel/bladder dysfunction. Coughing, sneezing, exercise, walking, sitting, standing, lying down, sexual activity, weather changes,cold, driving, rolling in bed, moving from sitting to standing, taking stairs and stress/fatigue make the pain worse. Heat and medications help the pain. Pt. Has done PT, TENS unit and a shoulder injection in the past. Pt. Is taking oxycontin for pain that relieves the pain by 20%. RAL NEUROLOGIST documented in this encounter H&P Notes * [place], - 09/15/2018 2:23 PM CST Lakeisha Alejandra is a 47 y.o. female Chief Complaint Patient presents with ??? Pain Neck ??? Establish Care 47 y/o with a distant history of [...] Presents today for new pain management physician. Past Medical History: Diagnosis Date ??? High cholesterol Family History Problem Relation Age of Onset ??? Heart Disease Mother Status: Alive ??? Diabetes Mother ??? Hypertension Mother ??? Cancer Father Status: Alive ??? Heart Disease Father ??? None Known Brother Status: Alive Past Surgical History: Procedure Laterality Date ??? Back Surgery ??? BIOPSY ??? HX SPINAL FUSION ??? MI FEMUR/KNEE SURG UNLISTED both knees ??? LUTHER TOOTH EXTRACTION Social History Social History ??? Marital status: [...] ??? Not on file Social History Narrative Outpatient Encounter Prescriptions as of 09/15/2018 Medication Sig Dispense Refill ??? ALPRAZolam (XANAX) 1 MG tablet 2 ??? atorvastatin (LIPITOR) 10 MG tablet Take 10 mg by mouth DAILY. 1 ??? budesonide-formoterol (SYMBICORT) 160-4.5 MCG/ACT inhaler Inhale 2 puffs by mouth BID. 1 Inhaler 5 ??? Cyanocobalamin (VITAMIN B 12) 100 MCG Take by mouth. ??? Furosemide (LASIX PO) ??? Melatonin 1 MG Take by mouth. ??? Misc Natural Products (OCTACOSANOL) 1000-5 MCG-UNIT Take by mouth. ??? nystatin (MYCOSTATIN) 729526 UNIT/GM powder 0 ??? omeprazole (PRILOSEC) 20 MG capsule 2 ??? pantoprazole EC (PROTONIX) 40 MG tablet Take 40 mg by mouth DAILY. 30 tablet 3 ??? PARoxetine HCl (PAXIL PO) ??? pregabalin (LYRICA) 75 MG capsule 0 ??? promethazine (PHENERGAN) 25 MG tablet Take 25 mg by mouth q6h PRN (Nausea). 30 tablet 0 ??? SUMAtriptan (IMITREX) 50 MG tablet 0 No facility-administered encounter medications on file as of 09/15/2018. Allergies Allergen Reactions ??? Penicillins Rash ??? [...] Anxiety, History of drug abuse or addiction EXAM BP 130/88 Pulse 112 Temp 96.5 ??F (35.8 ??C) Resp 20 Ht 1.6 m (5' 3 ) Wt 93.8 kg (206 lb 12.8 oz) BMI 36.63 kg/m2 General appearance: alert, cooperative, no distress Skin: no rashes or other abnormalities are noted Nodes: no cervical, axillary or inguinal adenopathy Eyes: sclera and conjunctiva clear, EOMI and PERRL, lids normal Ears: canals clear, hearing intact to voice Nose: nares open; no septal deviation is noted Throat: no mucous membrane abnormalities no masses, thyroid not enlarged, no adenopathy Lungs: breath sounds normal bilaterally without audible wheezes Heart: regular rhythm and rate without murmurs Circulation: Carotid and pedal pulses are intact and symmetrical, no carotid bruits no clubbing Or periopheral edema Abdomen: soft without mass, non-tender Musculoskeletal Extremities: no Nodules, edema Joint: Shoulder sore; elbow,wrist,hips,knees, ankles ranges of motion grossly normal Pyriformis tenderness- minimal Greater trochanteric bursa area tender Muscle groups No tenderness, spasm in Splenius and para-spinous muscles No tenderness , spasm in trapezius, rhomboids, levator scapulae No tenderness to palpation in quadratus lumborum, para-spinous muscles Spine Posture normal Cervical: Minimal range of motion yes pain with extension flexion rotation Thoracic: no pain with rotation, no spinous process tenderness Chest wall non tender Lumbar : Full range of motion. yes pain with extension flexion rotation Neuro:: Gait : Uses lambert to walk Motor 4-5/5 throughout unless noted Sensory grossly intact light touch,pinch, vibratory Reflexes symmetrical 2/2 UE diminished in LEs Hofffman negative Babinski down-going/no clonus SLRs negative bilaterally Assessment ICD-10-CM 1. Cervicalgia M54.2 MI TENS FOUR LEAD 2. Low back pain, unspecified back pain laterality, unspecified chronicity, with sciatica presence unspecified M54.5 AMB REFERRAL TO PAIN CLINIC MI TENS FOUR LEAD 3. Primary osteoarthritis of left shoulder M19.012 Plan Orders Placed This Encounter ??? MI TENS FOUR LEAD Will f/u with PCP for further details regarding their discontinuation of the patient's pain meds. UDS today. F/u with results and discuss further treatment options. Will look into a TENS unit for the patient as well. If the resident is involved, I examined the patient independantly from the resident. I have reviewed the labs and notes that are pertinent to the patient. I have discussed the plan with the patient and/or family. I have discussed the case with the resident and ask the you refer to their notes for details. After review of their notes and our discussion, if there are any additions, they will follow. RAL NEUROLOGIST documented in this encounter Plan of Treatment Not on file documented as of this encounter Procedures Procedure Name Priority Date/Time Associated Diagnosis Comments AMB REFERRAL TO PAIN CLINIC Routine 09/16/2018 9:45 AM GENERAL NEUROLOGIST Low back pain, unspecified back pain laterality, unspecified chronicity, with sciatica presence unspecified documented in this encounter Results * AMB REFERRAL TO PAIN CLINIC (09/16/2018 9:45 AM GENERAL NEUROLOGIST) Zuleika Mckeon MD OUTPATIENT REFERRALS documented in this encounter Visit Diagnoses Diagnosis Cervicalgia- Primary Low back pain, unspecified back pain laterality, unspecified chronicity, with sciatica presence unspecified Primary osteoarthritis of left shoulder Primary localized osteoarthrosis, shoulder region documented in this encounter Care Teams Counselor Marriage And Family Relationship Specialty Start Date End Date Blake Lindsey MD [address] [place] [address] PCP - General 05/20/16 documented as of this encounter
--- OUTSIDE RECORDS SUMMARY | 2024-07-29 17:22 | XMS_ITS | Encounter Summary ---
Author Organization [facility] Health Address [address] [place] [address] Care Team Providers Care Lath Hand Name Role Phone Blake Lindsey MD Primary Care Provider Encounter Details Date Type Department Care Team (Late st Contact Info) Description 05/31/2020 Orders Only [facility] [address] [address]D RN Hodgkin lymphoma, unspecified Hodgkin lymphoma type, [...] encounter Results * (ABNORMAL) COMPREHENSIVE METABOLIC PANEL (06/06/2020 1:48 PM [facility]) BUN 11 7 - 26 mg/dL 06/06/2020 2:30 PM [facility] Creatinine 0.7 0.6 - 1.2 mg/dL 06/06/2020 2:30 PM [facility] Sodium 141 136 - 145 mmol/L 06/06/2020 2:30 PM [facility] Potassium 4.1 3.5 - 4.5 mmol/L 06/06/2020 2:30 PM [facility] Chloride 108(H) 98 - 107 mmol/L 06/06/2020 2:30 PM [facility] CO2 22 22 - 29 mmol/L 06/06/2020 2:30 PM [facility] Glucose 128(H) 70 - 115 mg/dL 06/06/2020 2:30 PM [facility] Calcium 9.8 8.4 - 10.2 mg/dL 06/06/2020 2:30 PM [facility] Protein Total 7.4 6.0 - 8.3 g/dL 06/06/2020 2:30 PM [facility] Albumin 4.0 3.4 - 5.0 g/dL 06/06/2020 2:30 PM [facility] Bilirubin Total 0.4 0.2 - 1.2 mg/dL 06/06/2020 2:30 PM [facility] Alkaline Phosphatase 95 40 - 150 Units/L 06/06/2020 2:30 PM [facility] ALT 14 0 - 55 Units/L 06/06/2020 2:30 PM [facility] AST 14 5 - 34 Units/L 06/06/2020 2:30 PM [facility] Anion Gap 15 8 - 18 06/06/2020 2:30 PM [facility] BUN/Creatinine Ratio 16 7 - 23 06/06/2020 2:30 PM [facility] Osmolality Calculated 293 270 - 300 mOsm/kg 06/06/2020 2:30 PM [facility] Albumin/Globulin Ratio 1.2 1.1 - 2.3 06/06/2020 2:30 PM [facility] eGFR >60 >60 mL/min/1.7 3 m2 06/06/2020 2:30 PM [facility] Blood BLOOD SPECIMEN / Unknown Lab Venipuncture / Unknown 06/06/2020 1:48 PM [facility] 06/06/2020 2:01 PM [facility] Castillo Max MD LAB - CHEMISTRY OR DERABLES [facility] [address] [place] [id number], [facility] [phone] * (ABNORMAL) CBC WITH DIFFERENTIAL (06/06/2020 1:48 PM [facility]) WBC 7.4 3.5 - 10.5 10? 3 /uL 06/06/2020 2:08 PM [facility] RBC 4.54 3.90 - 5.00 10? 6 /uL 06/06/2020 2:08 PM [facility] Hemoglobin 14.6 12.0 - 15.5 g/dL 06/06/2020 2:08 PM [facility] Hematocrit 44.0 35.0 - 45.0 % 06/06/2020 2:08 PM [facility] MCV 96.9 81.0 - 97.0 fL 06/06/2020 2:08 PM [facility] MCH 32.2 28.0 - 34.0 pg 06/06/2020 2:08 PM [facility] MCHC 33.2 32.0 - 36.0 g/dL 06/06/2020 2:08 PM [facility] Platelet Count 165 150 - 400 10? 3 /uL 06/06/2020 2:08 PM [facility] RDW-SD 45.5 36.0 - 50.0 fL 06/06/2020 2:08 PM [facility] RDW-CV 12.8 11.2 - 14.8 % 06/06/2020 2:08 PM [facility] MPV 8.9(L) 9.3 - 12.8 fL 06/06/2020 2:08 PM [facility] nRBC Absolute 0.00 0 10? 3 /uL 06/06/2020 2:08 PM [facility] nRBC Auto 0.0 0 /100 WBC 06/06/2020 2:08 PM [facility] Neutrophils % 72.0(H) 35.0 - 70.0 % 06/06/2020 2:08 PM [facility] Lymphocytes % 21.0 19.7 - 55.1 % 06/06/2020 2:08 PM [facility] Monocytes % 3.8 3.0 - 15.0 % 06/06/2020 2:08 PM [facility] Eosinophils % 2.8 0.0 - 6.0 % 06/06/2020 2:08 PM [facility] Basophil % 0.3 0.0 - 1.5 % 06/06/2020 2:08 PM [facility] Neutrophils Absolute 5.4 1.6 - 7.0 10? 3 /uL 06/06/2020 2:08 PM [facility] Lymphocyte Absolute 1.6 0.8 - 2.9 10? 3 /uL 06/06/2020 2:08 PM [facility] Monocytes Absolute 0.28 0.14 - 0.66 10? 3 /uL 06/06/2020 2:08 PM [facility] Eosinophils Absolute 0.21 0.00 - 0.45 10? 3 /uL 06/06/2020 2:08 PM [facility] Basophils Absolute 0.02 0.00 - 0.06 10? 3 /uL 06/06/2020 2:08 PM [facility] Immature Granulocytes % 0.1 0.0 - 1.0 % 06/06/2020 2:08 PM [facility] Blood BLOOD SPECIMEN / Unknown Lab Venipuncture / Unknown 06/06/2020 1:48 PM [facility] 06/06/2020 2:01 PM [facility] Castillo Max MD LAB - HEMATOLOGY O RDERABLES [facility] [address] [place] [address], [facility] [phone] documented in this encounter Visit Diagnoses Diagnosis Hodgkin lymphoma, unspecified Hodgkin lymphoma type, unspecified body region (HCC)- Primary documented in this encounter Care Teams Lath Hand Relationship Specialty Start Date End Date Blake Lindsey MD [address] [place] [id number] PCP - General 05/20/16 documented as of this encounter
--- OUTSIDE RECORDS SUMMARY | 2024-07-29 17:22 | XMS_ITS | Encounter Summary ---
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 cervicothoracic spinal fusion instrumentation is again seen. There is no focal consolidation, pleural effusion, or pneumothorax. The cardiomediastinal silhouette is normal. The visible bony thorax isintact. IMPRESSION: No acute pulmonary process. Dictated by Frantz Loaiza MD (resident caregiver). Dr. RIMA Muller have personally reviewed and interpreted this examination/study. This report was electronically signed by RIMA TERESA on 08/21/20183:46 PM . Gabi Arnett MD DIAGNOSTIC IMAGING O RDERABLES * (ABNORMAL) URINALYSIS W/MICROSCOPIC NO CULTURE (08/21/2018 10:27 AM [facility]) Color UA Straw Straw, Yellow, Colorless 08/21/2018 10:38 AM [facility] Clarity UA Clear Clear, Slt Cloudy 08/21/2018 10:38 AM [facility] Specific Dolphin UA 1.006 1.005 - 1.030 08/21/2018 10:38 AM [facility] pH UA 9.0(H) 5.0 - 8.0 pH 08/21/2018 10:38 AM [facility] Protein UA Negative Negative mg/dL 08/21/2018 10:38 AM [facility] Glucose UA Negative Negative mg/dL 08/21/2018 10:38 AM [facility] Ketone UA Negative Negative mg/dL 08/21/2018 10:38 AM [facility] Bilirubin UA Negative Negative mg/dL 08/21/2018 10:38 AM [facility] Blood UA 1+(A) Negative 08/21/2018 10:38 AM [facility] Nitrite UA Negative Negative 08/21/2018 10:38 AM [facility] Leukocyte Esterase Negative Negative 08/21/2018 10:38 AM [facility] Urobilinogen UA Negative Negative mg/dL 08/21/2018 10:38 AM [facility] RBC UA 0-2 None Seen, 0-2, 3-5 /HPF 08/21/2018 10:38 AM [facility] WBC UA 0-5 None Seen, 0-5 /HPF 08/21/2018 10:38 AM [facility] Squamous Epithelial Cells UA None Seen None Seen, 0-2 /HPF 08/21/2018 10:38 AM [facility] Mucus UA 1+ None, 1+ /LPF 08/21/2018 10:38 AM [facility] Urine URINE SPECIMEN OBTAINED BY CLEAN CATCH PROCEDURE / Unknown Collection / Unknown 08/21/2018 10:27 AM [facility] 08/21/2018 10:30 AM [facility] Gabi Arnett MD LAB - URINALYSIS ORD ERABLES [address] [phone] * (ABNORMAL) DRUG SCREEN TOX URINE PANEL (08/21/2018 10:27 AM [facility]) Amphetamines Screen Urine Negative Negative : < 1000 ng/mL 08/21/2018 10:47 AM [facility] Barbiturates Screen Urine Negative Negative : < 200 ng/mL 08/21/2018 10:47 AM [facility] Benzodiazepine Screen Urine Negative Negative : < 200 ng/mL 08/21/2018 10:47 AM [facility] Opiates Urine Negative Negative : < 300 ng/mL 08/21/2018 10:47 AM [facility] Cocaine Metabolites Urine Negative Negative : < 300 ng/mL 08/21/2018 10:47 AM [facility] Phencyclidine Screen Urine Negative Negative : < 25 ng/ml 08/21/2018 10:47 AM [facility] Cannabinoids Screen Urine Positive(A) Negative : <50 ng/mL 08/21/2018 10:47 AM [facility] Comment: Positive urine cannabinoids (THC) screening results should be confirmed by another generally accepted non-immunological method such as gas chromatography or mass spectrometry. ? Methadone Screen Urine Negative Negative : < 300 ng/mL 08/21/2018 10:47 AM [facility] Urine URINE / Unknown Collection / Unknown 08/21/2018 10:27 AM [facility] 08/21/2018 10:30 AM [facility] Narrative [facility] - 08/21/2018 10:47 AM [facility] The Urine Toxicology Screening Panel does not screen for Propoxyphene, Meprobamate, Carisoprodol, Trazodone, xpam-zan-lykehfx medications and/or volatiles (Acetone, Isopropanol, Methanol or Ethylene Glycol). Ethanol, Salicylate, Acetaminophen, Tricyclic Antidepressants and several therapeutic drugs may be individually assayed in serum or plasma specimen. Toxicology testing by the [facility] is an aid to medical diagnosis and treatment of patients. No documented chain of custody was maintained. Results are intended to be used for clinical purposes only. ? Gabi Arnett MD LAB - URINE CHEMISTR Y ORDERABLES Performing Organization Address [facility] de Phone Number [address] [phone] * INFLUENZA A+B PCR (08/21/2018 10:25 AM [facility]) Influenza A Rapid GILLIAN Negative Negative 08/21/2018 10:52 AM [facility] Influenza B GILLIAN Rapid Negative Negative 08/21/2018 10:52 AM [facility] Microbiology SPECIMEN FROM NASOPHARYNGEAL STRUCTURE / Unknown Collection / Unknown 08/21/2018 10:25 AM [facility] 08/21/2018 10:27 AM [facility] Narrative [facility] - 08/21/2018 10:52 AM [facility] Assay performed by Nucleic Acid Amplification. Results [...] Arnett MD LAB - MICROBIOLOGY O RDERABLES Performing Organization Address [facility]/ZIP Co de Phone Number [facility] [address] [phone] * (ABNORMAL) COMPREHENSIVE METABOLIC PANEL (08/21/2018 10:23 AM [facility]) BUN 6(L) 7 - 26 mg/dL 08/21/2018 10:46 AM [facility] Creatinine 0.7 0.6 - 1.2 mg/dL 08/21/2018 10:46 AM [facility] Sodium 142 136 - 145 mmol/L 08/21/2018 10:46 AM [facility] Potassium 3.2(L) 3.5 - 4.5 mmol/L 08/21/2018 10:46 AM [facility] Chloride 104 98 - 107 mmol/L 08/21/2018 10:46 AM [facility] CO2 22 22 - 29 mmol/L 08/21/2018 10:46 AM [facility] Glucose 119(H) 70 - 115 mg/dL 08/21/2018 10:46 AM [facility] Calcium 10.0 8.4 - 10.2 mg/dL 08/21/2018 10:46 AM [facility] Protein Total 7.7 6.0 - 8.3 g/dL 08/21/2018 10:46 AM [facility] Albumin 4.1 3.4 - 5.0 g/dL 08/21/2018 10:46 AM [facility] Bilirubin Total 0.7 0.2 - 1.2 mg/dL 08/21/2018 10:46 AM [facility] Alkaline Phosphatase 99 40 - 150 Units/L 08/21/2018 10:46 AM [facility] ALT 47 0 - 55 Units/L 08/21/2018 10:46 AM [facility] AST 32 5 - 34 Units/L 08/21/2018 10:46 AM [facility] Anion Gap 19(H) 8 - 18 08/21/2018 10:46 AM [facility] BUN/Creatinine Ratio 9 7 - 23 08/21/2018 10:46 AM [facility] Osmolality Calculated 293 270 - 300 mOsm/kg 08/21/2018 10:46 AM [facility] Albumin/Globulin Ratio 1.1 1.1 - 2.3 08/21/2018 10:46 AM [facility] eGFR >60 >60 mL/min/1.7 3 m2 08/21/2018 10:46 AM [facility] Blood BLOOD SPECIMEN / Unknown Venipuncture / Unknown 08/21/2018 10:23 AM [facility] 08/21/2018 10:27 AM [facility] Gabi Arnett MD LAB - CHEMISTRY [facility] Organization Address City/State/[facility] Co de Phone Number [address] [phone] * (ABNORMAL) CBC W AUTO DIFFERENTIAL (08/21/2018 10:23 AM [facility]) WBC 10.3 3.5 - 10.5 10? 3 /uL 08/21/2018 10:31 AM [facility] RBC 4.79 3.90 - 5.00 10? 6 /uL 08/21/2018 10:31 AM [facility] Hemoglobin 15.5 12.0 - 15.5 g/dL 08/21/2018 10:31 AM [facility] Hematocrit 45.1(H) 35.0 - 45.0 % 08/21/2018 10:31 AM [facility] MCV 94.2 81.0 - 97.0 fL 08/21/2018 10:31 AM [facility] MCH 32.4 28.0 - 34.0 pg 08/21/2018 10:31 AM [facility] MCHC 34.4 32.0 - 36.0 g/dL 08/21/2018 10:31 AM [facility] Platelet Count 230 150 - 400 10? 3 /uL 08/21/2018 10:31 AM [facility] RDW-SD 46.9 36.0 - 50.0 fL 08/21/2018 10:31 AM [facility] RDW-CV 13.4 11.2 - 14.8 % 08/21/2018 10:31 AM [facility] MPV 8.7(L) 9.3 - 12.8 fL 08/21/2018 10:31 AM [facility] nRBC Absolute 0.00 0 10? 3 /uL 08/21/2018 10:31 AM [facility] nRBC Auto 0.0 0 /100 WBC 08/21/2018 10:31 AM [facility] Neutrophils % 74.9(H) 35.0 - 70.0 % 08/21/2018 10:31 AM [facility] Lymphocytes % 19.2(L) 19.7 - 55.1 % 08/21/2018 10:31 AM [facility] Monocytes % 4.3 3.0 - 15.0 % 08/21/2018 10:31 AM [facility] Eosinophils % 1.0 0.0 - 6.0 % 08/21/2018 10:31 AM [facility] Basophil % 0.3 0.0 - 1.5 % 08/21/2018 10:31 AM [facility] Neutrophils Absolute 7.8(H) 1.6 - 7.0 10? 3 /uL 08/21/2018 10:31 AM [facility] Lymphocyte Absolute 2.0 0.8 - 2.9 10? 3 /uL 08/21/2018 10:31 AM [facility] Monocytes Absolute 0.44 0.14 - 0.66 10? 3 /uL 08/21/2018 10:31 AM [facility] Eosinophils Absolute 0.10 0.00 - 0.45 10? 3 /uL 08/21/2018 10:31 AM [facility] Basophils Absolute 0.03 0.00 - 0.06 10? 3 /uL 08/21/2018 10:31 AM [facility] Immature Granulocytes % 0.3 0.0 - 1.0 % 08/21/2018 10:31 AM [facility] Blood BLOOD SPECIMEN / Unknown Venipuncture / Unknown 08/21/2018 10:23 AM [facility] 08/21/2018 10:27 AM [facility] Gabi Arnett MD LAB - HEMATOLOGY ORD ERABLES [address] [phone] documented in this encounter Visit Diagnoses Diagnosis Fever, unspecified fever cause- Primary Myalgia Mylagia and myositis, unspecified Hypokalemia Hypopotassemia Anxiety states documented in this encounter Administered Medications Inactive Administered Medications - up to 3 most recent administrations Medication Order MAR Action Action Date Dose Rate Site 0.9% NaCl IV Bolus 1,000 mL, at 3,000 mL/hr, Administer over 20 Minutes, NOW, 1 dose, On 08/21/18 at 1030 $ New Bag/Syringe 08/21/2018 10:22 AM [facility] 1,000 mL 3000 mL/hr ALPRAZolam (XANAX) tablet 1 mg 1 mg, Oral, NOW, 1 dose, On 08/21/18 at 1015 $ Given 08/21/2018 10:22 AM [facility] 1 mg potassium chloride ER (KLOR-CON M) tablet 40 mEq 40 mEq, Oral, NOW, 1 dose, On 08/21/18 at 1115, Do not crush or chew. $ Given 08/21/2018 11:45 AM [facility] 40 mEq documented in this encounter Active and Recently Administered Medications Times are shown in [facility]. Scheduled Medication Order 08/19/2018 08/20/2018 08/21/2018 0.9% NaCl IV Bolus (COMPLETED) 1,000 mL, at 3,000 mL/hr, Administer over 20 Minutes, NOW, 1 dose, On 08/21/18 at 1030 1022 ($ New Bag/Syri nge - Provider: Charlie Quintanilla RN)1250 (Stopped - Provider: Charlie Quintanilla RN) ALPRAZolam (XANAX) tablet 1 mg (COMPLETED) 1 mg, Oral, NOW, 1 dose, On 08/21/18 at 1015 1022 ($ Given - Prov ider: Charlie Quintanilla RN) potassium chloride ER (KLOR-CON M) tablet 40 mEq (COMPLETED) 40 mEq, Oral, NOW, 1 dose, On 08/21/18 at 1115, Do not crush or chew. 1145 ($ Given - Prov ider: Charlie Quintanilla RN) documented in this encounter Care Teams Decating Machine Operator Relationship Specialty Start Date End Date Blake Lindsey MD [address] [place] [address] PCP - General 05/20/16 documented as of this encounter
--- OUTSIDE RECORDS SUMMARY | 2024-07-29 17:22 | XMS_ITS | Encounter Summary ---
Author Organization [facility] Health Address [address] [place] [address] Care Team Providers Care Rn International Name Role Phone Blake Lindsey MD Primary Care Provider [phone] Encounter Details Date Type Department Care Team (Late st Contact Info) Description 06/06/2019 Orders Only [facility] - Orthopedics [address] [place] [address], [place] [phone] Wai Lowry MD [address] [place] [address] OF ORTHOPEDIC SURGERY [place], [place] [id number] Primary osteoarthritis of left knee ; Chronic left shoulder pain Social History Tobacco [...] as of this encounter Visit Diagnoses Diagnosis Primary osteoarthritis of left knee- Primary Primary localized osteoarthrosis, lower leg Chronic left shoulder pain Pain in joint, shoulder region documented in this encounter Care Teams Rn International Relationship Specialty Start Date End Date Blake Lindsey MD [address] [place] [address] PCP - General 05/20/16 documented as of this encounter
--- OUTSIDE RECORDS SUMMARY | 2024-07-29 17:22 | XMS_ITS | Encounter Summary ---
Author Organization [facility] Health Address [address] [place] [address] Care Team Providers Care Print Cutter Name Role Phone Blake Lindsey MD Primary Care Provider [phone] Reason for Visit * Reason Comments Establish Care Allergic Rhinitis Encounter Details Date Type Department Care Team (Late st Contact Info) Description 03/09/2019 9:00 AM CDT Office Visit [facility] [address], [address] [place] [address] Jah Ochoa MD [address] [place] [address] DEPT [place] [address] Otalgia of right ear (Primary Dx); TMJ (temporomandibular joint disorder) Social History Tobacco Use Types Packs/Day Years [...] Reading Time Taken Comments Blood Pressure 116/86 03/09/2019 9:13 AM CDT Pulse 93 03/09/2019 9:13 AM CDT Temperature - - Respiratory Rate - - Oxygen Saturation - - Inhaled Oxygen Concentration - - Weight 94.8 kg (209 lb) 03/09/2019 9:13 AM CDT Height 161.3 cm (5' 3.5 ) 03/09/2019 9:13 AM CDT Body Mass Index 36.44 03/09/2019 9:13 AM CDT documented in this encounter Functional [...] this encounter Patient Instructions * Patient Instructions* Edie Lopez - 03/09/2019 9:02 AM CDT Thank you for visiting [facility] Otolaryngology - Head & Neck [...] an appointment, please call our office at [phone] Wednesday through Wednesday from 8:30 am to4:30 pm. You can also request a routine appointment through your [employer] account. ??? Prescription Refills Contact your pharmacy [...] the medical exchange at and ask the electron beam welding machine operator to page the ENT physician technical services consultant. *Caller ID blocking service will need to be turned off for your call to be returned. We also specialize in Hearing Aids, Allergy testing, swallowing disorders, voice problems, cancer diagnosis, and so much more. Visit our website at [email or web address] for information about our practice and an interactive health encyclopedia. documented in this encounter Progress Notes * Autumn Tripathi - 03/09/2019 9:14 AM CDT History of Present Illness: Lakeisha is a 48 year old female who presents for evaluation of right sided otalgia. She is here todaywith reports of severe right sided ear pain. She states that she has had fluid behind her right TM for the last 3 weeks. She was seen by her PCP who referred her to us. She reports getting 1-2 ear infections per month, and her ear issues only began 2 years ago. Historically she is treated with Keflex or Levaquin for her infections. The amount of pain she feels often causes her to have a migraine.Things are also sounding very muffled to her. Denies ever having an audiogram. No dysphagia. She clinton former smoker who quit 21 years ago. She did have to take an ambulance to the ED last Wednesday where it was noted that her potassium was dangerously low. She is following up with her PCP later today for this. Past Medical History: Past Medical History: Diagnosis Date ??? COPD (chronic obstructive pulmonary disease) ??? High cholesterol ??? Migraine Past Surgical History: Procedure Laterality Date ??? Back Surgery ??? BIOPSY ??? HX SPINAL FUSION ??? WI FEMUR/KNEE SURG UNLISTED both knees ??? LUTHER TOOTH EXTRACTION Family History Problem Relation Age of Onset ??? Heart Disease Mother Status: Alive ??? Diabetes Mother ??? Hypertension Mother ??? Cancer Father Status: Alive ??? Heart Disease Father ??? None Known Brother Status: Alive Current Outpatient Prescriptions Medication Sig Dispense Refill ??? albuterol (PROVENTIL;VENTOLIN) (2.5 MG/3ML) 0.083% nebulizer solution INHALE 3 ML BY NEBULIZATION 3 TIMES DAILY Reasons: Disease Involving Spasms of the Bronchus 1 vial 0 ??? atorvastatin (LIPITOR) 10 MG tablet Take 1 tablet by mouth at bedtime Reasons: High Amount of Fats in the Blood 30 tablet 0 ??? budesonide-formoterol (SYMBICORT) 160-4.5 MCG/ACT inhaler Inhale 2 puffs by mouth 2 times dailyReasons: Chronic Bronchitis 1 Inhaler 0 ??? buprenorphine (BUTRANS) 20 MCG/HR patch Apply 1 patch to skin every 7 days Reasons: Moderate toSevere Chronic Pain (Patient not taking: Reported on 01/19/2019) 4 patch 0 ??? furosemide (LASIX) 20 MG tablet Take 1 tablet by mouth once daily Reasons: Edema 30 tablet 0 ??? hydrOXYzine hcl (ATARAX) 25 MG tablet Take 1 tablet by mouth 3 times daily as needed (anxiety) Reasons: Feeling Anxious 90 tablet 0 ??? ibuprofen (MOTRIN) 600 MG tablet ??? lamoTRIgine (LAMICTAL) 100 MG tablet TK 1 T PO QD 0 ??? QUEtiapine (SEROQUEL) 100 MG tablet Take 1 tablet by mouth at bedtime Reasons: Major DepressiveDisorder 30 tablet 0 ??? QUEtiapine (SEROQUEL) 50 MG tablet TK 1 T PO HS 0 ??? SENEXON-S 8.6-50 MG tablet Take 1 tablet by mouth once daily Reasons: Constipation 30 tablet 0 ??? SUMAtriptan (IMITREX) 50 MG tablet Take 1 tablet by mouth once as needed for Migraine Maximum daily dose: 200mg/24 hours Reasons: Migraine Headache 30 tablet 0 No current facility-administered medications for this visit. Allergies Allergen Reactions ??? Amoxicillin Rash ??? Penicillins Rash ??? Codeine Other Passes out, Passes out ??? Epinephrine Other When injected in mouth for dental procedures, makes extremities go numb Social History Substance Use Topics ??? Smoking status: Former Smoker Packs/day: 1.00 Quit date: 11/30/1997 ??? Smokeless tobacco: Never Used ??? Alcohol use 0.5 oz/week Review of Systems: An 14 point review of systems was completed and negative except for: General: night sweats, sleep problems, pain Head: headaches Ears: ear pain, loss of hearing Nose: sinus pain Mouth: tooth pain Throat: frequent soreness or swelling Lungs: cough, shortness of breath Mental Health: feeling of nervousness, anxiety, depression Physical Examination: BP 116/86 Pulse 93 Ht 5' 3.5 (1.613 m) Wt 209 lb (94.8 kg) BMI 36.44 kg/m2 Body mass index is 36.44 kg/(m^2). Constitutional: in no apparent distress and well developed and well nourished Head and Face: Normocephalic, without obvious abnormality; facial strength intact and symmetric, nontender Eyes: conjunctivae/corneas clear. PERRL Ears: Pinnae: normal bilaterally External canals: clear without exudates or blood Tympanic membrane and Middle ears: Right ear: clear, TM with normal appearing landmarks, no fluid Left ear: clear, TM with normal appearing landmarks, no fluid Nasal: Mild crusting bilaterally External: nose shows no deformity, asymmetry, or inflammation Septum: Good alignment Turbinates: Point Clear, non-edematous, without discharge Mucosa: Point Clear, healthy appearing Oral Cavity: Edentulous No perioral or gingival cyanosis or lesions. Tongue and floor of mouth are normal in appearance Throat: Oropharynx with healthy appearing musosa, no visible drainage, no lesions, uvula midline, soft palate with symmetric mobility Neck: no asymmetry, masses, or scars, supple without significant adenopathy, trachea midline, no thyroid enlargement or irregularity palpated Neuro: non focal, mental status and speech normal, alert and oriented Respiration: unlabored breathing, no audible wheezes or stridor Skin: Skin color, texture normal. No rashes or lesions Assessment and Plan: Lakeisha is a 48 year old female with otalgia. Upon examination, her ears are healthy. There is no noted fluid behind the TM, or inflammation of the ear. It is believed that her symptoms may be attributed to TMJ pain. Recommended she try taking Ibuprofen for this to see if it improves her symptoms. Also discussed staying adequately hydrated. She has a history of migraines, that she controls with Imitrex. She may benefit from meeting with Tamar Boss, should her symptoms continue. RTC as needed. I, Autumn Tripathi, acted as scribe for Jah Ochoa MD in documenting the service or procedure.To the best of my knowledge, I recorded what was dictated by Jah Ochoa MD. This will reports symptoms of recurrent ear infections on the right side. She is edentulous and a survivor of Hodgkin's lymphoma. She is without evidence disease after recent PET scan. Her ear exam is completely and totally normal bilaterally. She does have some mild tenderness in the temporomandibular joint on the right side. I do not have next phonation for her symptoms at this particular time that have recommended ibuprofen. It is also possible that she is having some variation of migraines.We talked about the importance of adequate hydration. If she has ear symptoms I'm going to have hernotify us immediately so we can reconfirm the exam that her ear is not infected and is not abnormality with her ear and that her symptoms are actually from some other etiology I, Jah Ochoa MD, have reviewed the initial documentation provided by Autumn Tripathi and affirm that it is an accurate restatement of my dictated record of services. I understand and acknowledge that I am responsible for the accuracy of the documentation. * Edie Lopez - 03/09/2019 9:01 AM CDT Review of Systems Lakeisha Alejandra reports the following; General: night sweats, sleep problems, pain Head: headaches Ears: ear pain, loss of hearing Nose: sinus pain Mouth: tooth pain Throat: frequent soreness or swelling Lungs: cough, shortness of breath Mental Health: feeling of nervousness, anxiety, depression documented in this encounter Plan of Treatment Not on file documented as of this encounter Visit Diagnoses Diagnosis Otalgia of right ear- Primary Otalgia, unspecified TMJ (temporomandibular joint disorder) Temporomandibular joint disorders, unspecified documented in this encounter Care Teams Print Cutter Relationship Specialty Start Date End Date Blake Lindsey MD [address] [place] [phone] PCP - General 05/20/16 documented as of this encounter
--- OUTSIDE RECORDS SUMMARY | 2024-07-29 17:22 | XMS_ITS | Encounter Summary ---
Author Organization [facility] Address [address] [address] Care Team Providers Care Post Acute Care Nurse Practitioner Name Role Phone Blake Lindsey MD Primary Care Provider [phone] Encounter Details Date Type Department Care Team (Late st Contact Info) Description 12/09/2018 Orders Only [facility] Pediatrics - Orthopedics [address] [place] [address] Fransico Kim S, [facility] [address] [place] [address] Chronic left shoulder pain Social History Tobacco [...] region documented in this encounter Care Teams Post Acute Care Nurse Practitioner Relationship Specialty Start Date End Date Blake Lindsey MD [address] [place] [address] PCP - General 05/20/16 documented as of this encounter
--- OUTSIDE RECORDS SUMMARY | 2024-07-29 17:22 | XMS_ITS | Encounter Summary ---
Author Organization [facility] Address [address] [place] [address] Care Team Providers Care Vessel Welder Name Role Phone Blake Lindsey MD Primary Care Provider [phone] Reason for Visit * Reason Comments Pain Back Encounter Details Date Type Department Care Team (Late st Contact Info) Description 07/18/2018 3:00 PM [facility] - 07/19/2018 6:06 PM [facility] Emergency [facility] EMERGENCY DEPARTMENT [address] [place] [address] Isma Patel MD [address] [facility] OF EMERGENCY MEDICINE [place], [place] [id number] Bob Costa MD [address] [facility] [address] [place] [address] Castillo Hernandez MD [address] [facility] [place] [address] Amalia Lopez MD [address] [facility] EMERGENCY DEPT [place], [place] [id number] Weakness; H/O metastatic neoplastic disease Discharge Disposition: Home or Self Care Social [...] Sign Reading Time Taken Comments Blood Pressure 122/86 07/19/2018 6:04 PM UNDERGRADUATE ADVISOR Pulse 81 07/19/2018 6:04 PM UNDERGRADUATE ADVISOR Temperature 36.6 ??C (97.9 ??F) 07/19/2018 6:04 PM CS T Respiratory Rate 18 07/19/2018 6:04 PM UNDERGRADUATE ADVISOR Oxygen Saturation 97% 07/19/2018 6:04 PM UNDERGRADUATE ADVISOR Inhaled Oxygen Concentration - - Weight 95.3 kg (210 lb) 07/18/2018 3:06 PM UNDERGRADUATE ADVISOR Height 160 cm (5' 3 ) 07/18/2018 3:06 PM UNDERGRADUATE ADVISOR Body Mass Index 37.2 07/18/2018 3:06 PM UNDERGRADUATE ADVISOR documented in this encounter Discharge Instructions * Discharge Instructions* Helena Mcfadden, - 07/19/2018 5:58 PM UNDERGRADUATE ADVISOR Weakness WHAT YOU NEED TO KNOW: Weakness is a loss of muscle strength. It may be caused by brain, nerve, or muscle problems. Physical and mental conditions such as heart problems, , dehydration, or depression may also cause weakness. Reactions to certain drugs can cause weakness. Parts of your body may become weak if youneed to wear a cast or splint or have been on bed rest for a long time. DISCHARGE INSTRUCTIONS: Call 911 for any of the following: ?? You have any of the following signs of a stroke: ?? Numbness or drooping on one side of your face ?? Weakness in an arm or leg ?? Confusion or difficulty speaking ?? Dizziness, a severe headache, or vision loss ?? You lose feeling in your weakened body area. ?? You have electric shock-like feelings down your arms and legs when you flex or move your neck. ?? You have sudden or increased trouble speaking, swallowing, or breathing. Return to the emergency department if: ?? You have severe pain in your back, arms, or legs that worsens. ?? You have sudden or worsened muscle weakness or loss of movement. ?? You are not able to control when you urinate or have a bowel movement. Contact your healthcare provider if: ?? You feel depressed or anxious. ?? You have questions or concerns about your condition or care. Manage weakness: ?? Use assistive devices as directed. These help protect you from injury. Examples include a walkeror cane. Have someone install handrails in your home. These will help you get out of a bathtub or stand up from a toilet. Use a shower chair so you can sit while you shower. Sit down on the toilet oranother chair to dry off and put on your clothes. Get help going up and down stairs if your legs are weak. ?? Go to physical or occupational therapy if directed. A physical therapist can teach you exercisesto help strengthen weak muscles. An occupational therapist can show you ways to do your daily activities more easily. For example, light forks and spoons can be easier to use if you have hand weakness. You may also learn ways to organize your household items so you are not moving heavy items. ?? Balance rest with exercise. Exercise can help increase your muscle strength and energy. Do not exercise for long periods at a time. Take breaks often to rest. Too much exercise can cause muscle strain or make you more tired. Ask your healthcare provider how much exercise is right for you. ?? Eat a variety of healthy foods. Too much or too little food may cause weakness or tiredness. Askyour healthcare provider what a healthy amount of food is for you. Healthy foods include fruits, vegetables, whole-grain breads, low- fat dairy products, lean meats and fish, nuts, and cooked beans. ?? Do not smoke. Nicotine and other chemicals in cigarettes and cigars can make your symptoms worse, and can cause lung damage. Ask your healthcare provider for information if you currently smoke andneed help to quit. E-cigarettes or smokeless tobacco still contain nicotine. Talk to your healthcare provider before you use these products. ?? Do not use caffeine, alcohol, or illegal drugs. These may cause muscle twitching, which could lead to worsened weakness. Follow up with your healthcare provider as directed: Write down your questions so you remember to ask them during your visits. ?? Copyright [employer] 2018 Information is for End User's use only and may not be sold, redistributed or otherwise used for commercial purposes. All illustrations and images included in CareNotes?? are the copyrighted property of [employer] or [employer] The above information is an disability aide only. It is not intended as medical advice for individual conditions or treatments. Talk to your doctor, nurse or pharmacist before following any medical regimen to see if it is safe and effective for you. RGRADUATE ADVISOR documented in this encounter Medications at Time [...] Take by mouth. 09/09/2016 11/17/2018 nystatin (MYCOSTATIN) 392870 UNIT/GM powder 0 09/24/20172018 omeprazole (PRILOSEC) 20 [...] 05/26/2017 01/12/2019 documented as of this encounter Consult Notes * Braxton Goff MD - 07/19/2018 5:39 AM CSTAssociated Order(s): IP CONSULT TO ORTHOPEDICS [facility] Orthopaedic Spine Consult Lakeisha Alejandra 47 y.o. female July 19, 2018 Chief Complaint: b/l arm and leg weakness/tingling HPI: history obtained from patient Patient is a 47 y.o. 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 Virk, most recently in march of 2015 with revision IPSF from C5-T12 due to broke rods. She has notseen our spine service since 2016 per chart check. Pt. Presents today with variable tingling/weakness of B/L UE and BLE, but all at different times associated with head movement. She was playing withher dog and felt a pop in her left shoulder which has been probmematic for her for many years, but then after this, noticed that any rotation or bending of her head/neck caused tingling and weakness in her extremities, but no two extremities at the same time, and in no predictable patter. She wasafraid to walk after this and stayed in bed for several hours before coming to the hospital for eval. States she has not walked since this onset at 1500 /, but also has not tried. At the moment she notes some aching back pain that is constant, worse with movement, better with rest, located in the mid thoracic spine, but otherwise no current weakness or tingling. Ms. Alejandra states that she does not have bowel/bladder symptoms of retention or loss of function. PMHx: Past Medical History: Diagnosis Date ??? High cholesterol PSHx: Past Surgical History: Procedure Laterality Date ??? Back Surgery ??? BIOPSY ??? HX SPINAL FUSION ??? [place] FEMUR/KNEE SURG UNLISTED both knees ??? LUTHER TOOTH EXTRACTION Social Hx: Social History Substance Use Topics ??? Smoking status: Former Smoker Packs/day: 1.00 Quit date: 11/30/1997 ??? Smokeless tobacco: Never Used ??? Alcohol use 0.5 oz/week Family Hx: family history includes Cancer in her father; Diabetes in her mother; Heart Disease in her father and mother; Hypertension in her mother; None Known in her brother. Allergies: Allergies Allergen Reactions ??? Penicillins Rash ??? Codeine Other Passes out ??? Epinephrine Other When injected in mouth for dental procedures, makes extremities go numb Medications: No current facility-administered medications for this encounter. Current Outpatient Prescriptions Medication ??? PARoxetine HCl (PAXIL PO) ??? Furosemide (LASIX PO) ??? nystatin (MYCOSTATIN) 229926 UNIT/GM powder ??? pregabalin (LYRICA) 75 MG [...] ??? Misc Natural Products (OCTACOSANOL) 1000-5 MCG-UNIT Review of Systems: Pertinent items are noted in HPI Vitals: BP 127/74 Pulse 99 Temp 98.4 ??F (36.9 ??C) Resp 19 Ht 5' 3 (1.6 m) Wt 210 lb (95.3 kg) SpO2 97% BMI 37.2 kg/m2 Physical Exam: General appearance: alert and oriented, NAD Neck: C-collar/[place] J: present, Tenderness to palpation: absent, ROM: not assessed. Back: Tenderness to palpation: present over mid T spine only, ROM: not assessed. There are not any appreciated step-offs. Rectal/Perineal: intact voluntary tone Blood-no. BCR was not assesed. Perianal/Perineal sensation is intact. Bilateral Upper Extremity: Motor: 5/5 cooper apprentice, 5/5 small finger abduction, 4/5 wrist extension, 4/5 wrist flexion, 4/5 biceps, 5/5 Triceps function, 5/5 deltoid function. Sensory: intact to light touch, no tingling. Ruiz's sign is negative. Reflexes: Biceps: Normal Triceps: Normal BR: Normal Bilateral Lower Extremity: Motor: intact EHL/AT/GSC/Quad/Hamstrings/Hip flexors. 5/5 EHL, 5/5 AT, 5/5 GSC, 4/5 Quad, 4/5 Hamstring, 3/5 Hip flexors (states it has been this way for some time). Sensation: intact to light touch distally, no tingling Clonus: absent on left, present unsustained on right with 1 beat Reflexes: Knee Jerk: Normal Achilles: Normal Babinski: Down going Imaging: CT/MRI C/T/L spine: pt. Is s/p C5-T12 IPSF which somewhat limits exams due to artifact. There is anarea of canal stenosis at the C6 area without apparent compression of the cord or signal change in the cord. There is mild kyphosis of the cervical spine. There is a fracture of the T6 vertebral bodythat appears consistent with prior imaging and chronic on MRI. There are lytic lesions of T5, T10, T11, and L5. Hardware appears intact and without evidence of failure. Labs: Lab results smartLinks are not currently available Lab results smartLinks are not currently available Assesment and Plan: 47 y.o. female with intermittent B/L UE and BLE tingling and weakness after pop in left shoulder playing with dog. No acute spine pathology noted on imaging. 1. Activity: bedrest, SSP 2. Maintain collar for now 3. Pain control 4. Will discuss with spine team and Update pt. And ED with recs as available. Braxton Goff MD Orthopaedic Surgery Resident 07/19/18 7:43 AM RGRADUATE ADVISOR Associated attestation - Zuleika Mckeon MD - 07/21/2018 8:03 AM UNDERGRADUATE ADVISOR I have seen and examined the patient with the resident on 07/19/2018 and I agree with the findings as documented by resident. No neuro deficit on exam , no focal tenderness. No evidence of fracture, implant related complication on imaging, no stenosis on MRI. No intervention from ortho stand point.May discharge. Follow up with spine clinic as scheduled. I spent more than 70 min seeing patient, reviewing images and discussion case with colleagues and formulating the plan. 07/21/18 Zuleika Mckeon MD Food Safety Director of Orthopaedics Adult and Pediatric Spine Surgery documented in this encounter ED Notes * Luz Deluna RN - 07/19/2018 6:06 PM CST Son at bedside to drive pt home RGRADUATE ADVISOR * Luz Deluna RN - 07/19/2018 5:16 PM CST Son at bedside. Awaiting clearance of spine by ortho. RGRADUATE ADVISOR * Luz Deluna RN - 07/19/2018 4:50 PM CST Pt removed soft c collar and is ambulating in arias with steady gait. A&O. Eupnea. Skin pink, w&d. No obvious signs of pain when walking RGRADUATE ADVISOR * Luz Deluna RN - 07/19/2018 4:00 PM CST Removed self from ivf. RGRADUATE ADVISOR * Amalia Lopez MD - 07/19/2018 2:55 PM CST ASSUMED CARE NOTE Patient signed out to me by Dr. Hernandez at 3:23 PM. Lakeisha Alejandra is a 47 y.o. female is being evaluated for back pain. History of Hodgkin's lymphoma and cervical-thoracic fusion. Dog pulled down and patient had difficulty walking. At this time thepatient's condition is Stable. Pending ortho xrays and recs. Plan is per results. Vitals: 07/19/18 1030 07/19/18 1100 07/19/18 1130 07/19/18 1200 BP: 116/50 91/56 101/47 100/63 Pulse: 101 105 (!) 112 109 Resp: 17 16 16 Temp: SpO2: 92% 96% 97% 97% Weight: Height: Labs Reviewed CBC W AUTO DIFFERENTIAL - Abnormal; Notable for the following: Result Value MPV 8.7 (*) All other components within normal limits COMPREHENSIVE METABOLIC PANEL - Abnormal; Notable for the following: BUN 5 (*) ALT 63 (*) AST 39 (*) BUN/Creatinine Ratio 6 (*) All other components within normal limits URINALYSIS W/MICROSCOPIC NO CULTURE - Normal XR CERVICAL SPINE 2 OR 3VW Final Result EXAMINATION: XR CERVICAL SPINE 2 OR 3VW, [...] deformity, unchanged. Dictated by Lachelle Boyce MD (echocardiography radiology technologist). I, Dr. KATHERINE HO M.D. have personally reviewed and interpreted this examination/study. This report was electronically signed by KATHERINE HO M.D. on 07/19/2018 3:24 PM . XR THORACIC SPINE 3VW Final Result EXAMINATION: XR CERVICAL SPINE 2 OR 3VW, [...] deformity, unchanged. Dictated by Lachelle Boyce MD (echocardiography radiology technologist). I, Dr. KATHERINE HO M.D. have personally reviewed and interpreted this examination/study. This report was electronically signed by KATHERINE HO M.D. on 07/19/2018 3:24 PM . XR LUMBAR SPINE 2 OR 3VW Final Result EXAMINATION: XR CERVICAL SPINE 2 OR 3VW, [...] deformity, unchanged. Dictated by Lachelle Boyce MD (echocardiography radiology technologist). I, Dr. KATHERINE HO M.D. have personally reviewed and interpreted this examination/study. This report was electronically signed by KATHERINE HO M.D. on 07/19/2018 3:[address] CERVICAL SPINE WO CONTRAST Final Result EXAMINATION: Computed tomography (CT) of the cervical, [...] There is no significant soft tissue abnormality. IMPRESSION: 1.Postoperative appearance of posterior instrumented cervicothoracic spine fixation from C5 to T12 as outlined. 2.No acute fracture of the cervical, thoracic and lumbar spine. 3.Chronic pathologic T6 compression deformity with 80-90% height loss. 4.Large lytic lesion of the L5 vertebral body, likely representing metastatic disease. This report was approved by Stan Mayes on 07/19/2018 2:41 PM . I, Dr. SHANI FISCHER have personally reviewed and interpreted this examination/study. This report was electronically signed by SHANI FISCHER on 07/19/2018 2:[address] THORACIC SPINE WO CONTRAST Final Result EXAMINATION: Computed tomography (CT) of the cervical, [...] There is no significant soft tissue abnormality. IMPRESSION: 1.Postoperative appearance of posterior instrumented cervicothoracic spine fixation from C5 to T12 as outlined. 2.No acute fracture of the cervical, thoracic and lumbar spine. 3.Chronic pathologic T6 compression deformity with 80-90% height loss. 4.Large lytic lesion of the L5 vertebral body, likely representing metastatic disease. This report was approved by Stan Mayes on 07/19/2018 2:41 PM . I, Dr. SHANI FISCHER have personally reviewed and interpreted this examination/study. This report was electronically signed by SHANI FISCHER on 07/19/2018 2:[address] LUMBAR SPINE WO CONTRAST Final Result EXAMINATION: Computed tomography (CT) of the cervical, [...] There is no significant soft tissue abnormality. IMPRESSION: 1.Postoperative appearance of posterior instrumented cervicothoracic spine fixation from C5 to T12 as outlined. 2.No acute fracture of the cervical, thoracic and lumbar spine. 3.Chronic pathologic T6 compression deformity with 80-90% height loss. 4.Large lytic lesion of the L5 vertebral body, likely representing metastatic disease. This report was approved by Stan Mayes on 07/19/2018 2:41 PM . I, Dr. SHANI FISCHER have personally reviewed and interpreted this examination/study. This report was electronically signed by SHANI FISCHER on 07/19/2018 2:41 PM . MRI CERVICAL SPINE WO CONTRAST Final Result EXAMINATION: Magnetic resonance imaging (MRI) of the [...] identified. IMPRESSION: 1.Postoperative appearance of posterior instrumented cervicothoracic spine from the C5-T12 levels. 2.Examination degraded by metal artifact. Within this limitation, no evidence of acute fracture or subluxation. No evidence of cord compression. I, Dr. JAJA AKERS have personally reviewed and interpreted this examination/study. This report was electronically signed by JAJA AKERS on 07/19/2018 9:36 AM . MRI THORACIC SPINE WO CONTRAST Final Result EXAMINATION: Magnetic resonance imaging (MRI) of the [...] identified. IMPRESSION: 1.Postoperative appearance of posterior instrumented cervicothoracic spine from the C5-T12 levels. 2.Examination degraded by metal artifact. Within this limitation, no evidence of acute fracture or subluxation. No evidence of cord compression. I, Dr. JAJA AKERS have personally reviewed and interpreted this examination/study. This report was electronically signed by JAJA AKERS on 07/19/2018 9:36 AM . MRI LUMBAR SPINE WO CONTRAST Final Result EXAMINATION: Magnetic resonance imaging (MRI) of the [...] identified. IMPRESSION: 1.Postoperative appearance of posterior instrumented cervicothoracic spine from the C5-T12 levels. 2.Examination degraded by metal artifact. Within this limitation, no evidence of acute fracture or subluxation. No evidence of cord compression. I, Dr. JAJA AKERS have personally reviewed and interpreted this examination/study. This report was electronically signed by JAJA AKERS on 07/19/2018 9:[address] HEAD WO CONTRAST Final Result CT HEAD WO CONTRAST EXAMINATION: Computed tomography (CT) of the head without contrast DATE: 07/18/2018 5:24 PM HISTORY: WEAKNESS TECHNIQUE: CT of the head was performed without contrast according to standard protocol. COMPARISON: Correlation with PET/CT whole body from 07/16/2016. FINDINGS: No acute intra- or extra-axial fluid collections are identified. The ventricles are of stable size, shape, and morphology. There is probably subtle stable generalized volume loss with mild asymmetric prominence of the left sylvian fissure and left convexity sulci, similar to the prior PET/CT from 07/16/2016. The basilar cisterns are patent. No mass effect or midline shift is seen. The wick-white matter differentiation is normal. Periventricular white matter hypoattenuation is indicative of chronic small vessel ischemic disease. There is vascular calcification of the carotid siphons. The orbits appear normal. The paranasal sinuses are clear. The mastoid air cells are clear. No soft tissue abnormality is identified. IMPRESSION: No acute intracranial hemorrhage, midline shift, or significant mass effect. This report was electronically signed by SHANI FISCHER on 07/18/2018 5:55 PM . ED Course: 6:00 PM - Imaging completed. Orthopedics comfortable with d/c from their standpoint. Will d/c home with f/u instructions 6:01 PM: I have reviewed her diagnostic findings and she has had an opportunity to ask me any questions she has about care, diagnosis and discharge plan. Patient is comfortable with the discharge plan. She will follow up as directed and will return to the ER if her condition worsens or she developsother urgent concerns. Clinical Impression: 1. Weakness 2. H/O metastatic neoplastic disease Disposition: Discharge home By signing my name below, I, Anup Self, attest that this documentation has been prepared under the direction and in the presence of Dr. Lopez. Signed: Link Gardiner. Date: 07/19/2018. Time:6:01 PM. I, Dr. Lopez, personally performed the services described in this documentation. All medical record entries made by the scribe were at my direction and in my presence. I have reviewed the chart and agree that the record reflects my personal performance and is accurate and complete. RGRADUATE ADVISOR * Luz Deluna RN - 07/19/2018 2:19 PM CST Sitting upright in bed eating noon meal. No needs voiced. Tolerating well RGRADUATE ADVISOR * Mady Wallace RN - 07/19/2018 1:42 PM CST Dietary called for lunch tray. RGRADUATE ADVISOR * Luz Deluna RN - 07/19/2018 1:24 PM CST Soft c collar applied and instructions on correct application and laundering given. Verbalized understanding. RGRADUATE ADVISOR * Luz Deluna RN - 07/19/2018 10:25 AM CST A&O. Talkative. Eupnea. Continues to have c collar off. Able to alberto. RGRADUATE ADVISOR * Luz Deluna RN - 07/19/2018 9:01 AM CST Removed collar per self, lying on R side. Pt instructed regarding that collar needs to be left in place, verbalized understanding, but at this time does not want collar put back on. Requests meds foranxiety. Er md notified RGRADUATE ADVISOR * Luz Deluna RN - 07/19/2018 7:51 AM CST Requests water. Er md stated pt is npo until spinal precautions are discontinued. Pt notified and given mouth swab. RGRADUATE ADVISOR * Castillo Hernandez MD - 07/19/2018 7:44 AM CST ASSUMED CARE NOTE Patient signed out to me by Dr. Costa at 7:44 AM. Lakeisha Alejandra is a 47 y.o. female is being evaluated for back pain. Pt c/o pain in neck as well as numbness in both arms, initially unable to walk. Pt with hx of Hodgkin's lymphoma currently in remission. Hx of derek placement for spine stabilization. Pt states symptoms have resolved at this time.MRI and CT unchanged from recent imaging. At this time the patient's condition is Stable. Pending ortho spine recommendation. Plan is await ortho recs. 8:23 AM Pt rechecked. Resting comfortably in bed at this time. Informed pt of pending ortho spine consult. Pt states she is back to baseline at this time. 9:01 AM Pt removed [place] J collar and was reminded she should keep it on. She is laying on her side despitebeing instructed to lay on back. Requesting Xanax at this time. 12:25 PM Ortho spine has seen the pt and recommends standing AP and lateral X-ray of C/T/L spine. Place in soft collar. No d/c until final read of MRI. 3:04 PM Signed out to Dr. Lopez, pending final imaging reads Vitals: 07/19/18 0500 07/19/18 0600 07/19/18 0630 07/19/18 0730 BP: 127/74 112/93 108/57 119/90 Pulse: 99 95 105 103 Resp: 19 23 23 13 Temp: SpO2: 97% 93% 96% 97% Weight: Height: Clinical Impression: 1. Weakness Disposition: SO to Dr. Lopez By signing my name below, I, Dave Garcia, attest that this documentation has been prepared under the direction and in the presence of Dr. Hernandez. Signed: Link Arzola. Date: 07/19/2018. Time:3:05 PM. I personally performed the services described in this documentation. All medical record entries made by the scribe were at my direction and in my presence. I have reviewed the chart and agree that the record reflects my personal performance and is accurate and complete. Electronically signed: Dr. Castillo Hernandez RGRADUATE ADVISOR * Dunia Black RN - 07/19/2018 7:29 AM CST Report given to RADHA Patel for care hand off RGRADUATE ADVISOR * Dunia Black RN - 07/19/2018 3:00 AM CST [place] J applied to patient. C-spine precautions maintained. RGRADUATE ADVISOR * Bob Costa MD - 07/18/2018 11:37 PM CST Patient transitioned to my care on 07/18/2018 at 11:[address] Patel Illness severity Patients condition at time of handoff: good Patient Summary Age: 47 y.o. PMH: Past Medical History: Diagnosis Date ??? High cholesterol Chief Complaint: Chief Complaint Patient presents with ??? Pain Back Presenting symptoms: Hx hodkins in remission, history of tumor in spinal cord, back pain and cannot walk, no saddle anesthesia Labs: Labs Reviewed CBC W AUTO DIFFERENTIAL - Abnormal; Notable for the following: Result Value MPV 8.7 (*) All other components within normal limits COMPREHENSIVE METABOLIC PANEL - Abnormal; Notable for the following: BUN 5 (*) ALT 63 (*) AST 39 (*) BUN/Creatinine Ratio 6 (*) All other components within normal limits URINALYSIS W/MICROSCOPIC NO CULTURE - Normal Imaging: CT HEAD WO CONTRAST Final Result CT HEAD WO CONTRAST EXAMINATION: Computed tomography (CT) of the head without contrast DATE: 07/18/2018 5:24 PM HISTORY: WEAKNESS TECHNIQUE: CT of the head was performed without contrast according to standard protocol. COMPARISON: Correlation with PET/CT whole body from 07/16/2016. FINDINGS: No acute intra- or extra-axial fluid collections are identified. The ventricles are of stable size, shape, and morphology. There is probably subtle stable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 5:55 PM . Narrative 07/18/2018 5:[address] HEAD WO CONTRAST EXAMINATION: Computed tomography (CT) of the head without contrast DATE: 07/18/2018 5:24 PM HISTORY: WEAKNESS TECHNIQUE: CT of the head was performed without contrast according to standard protocol. COMPARISON: Correlation with PET/CT whole body from 07/16/2016. FINDINGS: No acute intra- or extra-axial fluid collections are identified. The ventricles are of stable size, shape, and morphology. There is probably subtle stable generalized volume loss with mild asymmetric prominence of the left sylvian fissure and left convexity sulci, similar to the prior PET/CT from 07/16/2016. The basilar cisterns are patent. No mass effect or midline shift is seen. The wick-white matter differentiation is normal. Periventricular white matter hypoattenuation is indicative of chronic small vessel ischemic disease. There is vascular calcification of the carotid siphons. The orbits appear normal. The paranasal sinuses are clear. The mastoid air cells are clear. No soft tissue abnormality is identified. Procedure Note Shani Fischer MD - 07/18/2018 CT HEAD WO CONTRAST EXAMINATION: Computed tomography (CT) of the head without contrast DATE: 07/18/2018 5:24 PM HISTORY: WEAKNESS TECHNIQUE: CT of the head was performed without contrast according to standard protocol. COMPARISON: Correlation with PET/CT whole body from 07/16/2016. FINDINGS: No acute intra- or extra-axial fluid collections are identified. The ventricles are of stable size, shape, and morphology. There is probably subtle stable generalized volume loss with mild asymmetric prominence of the left sylvian fissure and left convexity sulci, similar to the prior PET/CT from 07/16/2016. The basilar cisterns are patent. No mass effector midline shift is seen. The wick-white matter differentiation is normal. Periventricular white matter hypoattenuation is indicative of chronic small vessel ischemic disease. There is vascular calcification of the carotid siphons. The orbits appear normal. The paranasal sinuses are clear. The mastoid air cells are clear. No soft tissue abnormality is identified. IMPRESSION: No acute intracranial hemorrhage, midline shift, or significant mass effect. This report was electronically signed by SHANI FISCHER on 07/18/2018 5:55 PM . Helena Mcfadden DO CT ORDERABLES * (ABNORMAL) COMPREHENSIVE METABOLIC PANEL (07/18/2018 4:18 PM UNDERGRADUATE ADVISOR) BUN 5(L) 7 - 26 mg/dL 07/18/2018 4:40 PM [facility] Creatinine 0.8 0.6 - 1.2 mg/dL 07/18/2018 4:40 PM [facility] Sodium 142 136 - 145 mmol/L 07/18/2018 4:40 PM [facility] Potassium 3.5 3.5 - 4.5 mmol/L 07/18/2018 4:40 PM [facility] Chloride 106 98 - 107 mmol/L 07/18/2018 4:40 PM [facility] CO2 23 22 - 29 mmol/L 07/18/2018 4:40 PM [facility] Glucose 107 70 - 115 mg/dL 07/18/2018 4:40 PM [facility] Calcium 9.6 8.4 - 10.2 mg/dL 07/18/2018 4:40 PM [facility] Protein Total 7.3 6.0 - 8.3 g/dL 07/18/2018 4:40 PM [facility] Albumin 4.0 3.4 - 5.0 g/dL 07/18/2018 4:40 PM [facility] Bilirubin Total 0.6 0.2 - 1.2 mg/dL 07/18/2018 4:40 PM [facility] Alkaline Phosphatase 104 40 - 150 Units/L 07/18/2018 4:40 PM [facility] ALT 63(H) 0 - 55 Units/L 07/18/2018 4:40 PM [facility] AST 39(H) 5 - 34 Units/L 07/18/2018 4:40 PM [facility] Anion Gap 17 8 - 18 07/18/2018 4:40 PM [facility] BUN/Creatinine Ratio 6(L) 7 - 23 07/18/2018 4:40 PM [facility] Osmolality Calculated 292 270 - 300 mOsm/kg 07/18/2018 4:40 PM [facility] Albumin/Globulin Ratio 1.2 1.1 - 2.3 07/18/2018 4:40 PM [facility] eGFR >60 >60 mL/min/1.7 3 m2 07/18/2018 4:40 PM [facility] Blood BLOOD SPECIMEN / Unknown Venipuncture / Unknown 07/18/2018 4:18 PM UNDERGRADUATE ADVISOR 07/18/2018 4:18 PM [facility] Helena Mcfadden DO LAB - CHEMISTRY [facility] [address] [phone] * (ABNORMAL) CBC W AUTO DIFFERENTIAL (07/18/2018 4:18 PM [facility]) WBC 9.3 3.5 - 10.5 10? 3 /uL 07/18/2018 4:24 PM [facility] RBC 4.67 3.90 - 5.00 10? 6 /uL 07/18/2018 4:24 PM [facility] Hemoglobin 15.5 12.0 - 15.5 g/dL 07/18/2018 4:24 PM [facility] Hematocrit 44.3 35.0 - 45.0 % 07/18/2018 4:24 PM [facility] MCV 94.9 81.0 - 97.0 fL 07/18/2018 4:24 PM [facility] MCH 33.2 28.0 - 34.0 pg 07/18/2018 4:24 PM [facility] MCHC 35.0 32.0 - 36.0 g/dL 07/18/2018 4:24 PM [facility] Platelet Count 207 150 - 400 10? 3 /uL 07/18/2018 4:24 PM [facility] RDW-SD 47.6 36.0 - 50.0 fL 07/18/2018 4:24 PM [facility] RDW-CV 13.7 11.2 - 14.8 % 07/18/2018 4:24 PM [facility] MPV 8.7(L) 9.3 - 12.8 fL 07/18/2018 4:24 PM [facility] nRBC Absolute 0.00 0 10? 3 /uL 07/18/2018 4:24 PM [facility] nRBC Auto 0.0 0 /100 WBC 07/18/2018 4:24 PM [facility] Neutrophils % 67.1 35.0 - 70.0 % 07/18/2018 4:24 PM [facility] Lymphocytes % 23.0 19.7 - 55.1 % 07/18/2018 4:24 PM [facility] Monocytes % 7.1 3.0 - 15.0 % 07/18/2018 4:24 PM [facility] Eosinophils % 2.5 0.0 - 6.0 % 07/18/2018 4:24 PM [facility] Basophil % 0.3 0.0 - 1.5 % 07/18/2018 4:24 PM [facility] Neutrophils Absolute 6.2 1.6 - 7.0 10? 3 /uL 07/18/2018 4:24 PM [facility] Lymphocyte Absolute 2.1 0.8 - 2.9 10? 3 /uL 07/18/2018 4:24 PM [facility] Monocytes Absolute 0.66 0.14 - 0.66 10? 3 /uL 07/18/2018 4:24 PM [facility] Eosinophils Absolute 0.23 0.00 - 0.45 10? 3 /uL 07/18/2018 4:24 PM [facility] Basophils Absolute 0.03 0.00 - 0.06 10? 3 /uL 07/18/2018 4:24 PM [facility] Immature Granulocytes % 0.3 0.0 - 1.0 % 07/18/2018 4:24 PM [facility] Blood BLOOD SPECIMEN / Unknown Venipuncture / Unknown 07/18/2018 4:18 PM UNDERGRADUATE ADVISOR 07/18/2018 4:18 PM [facility] Helena Mcfadden DO LAB - HEMATOLOGY ORD ERABLES [address] [phone] documented in this encounter Visit Diagnoses Diagnosis Weakness Other malaise and fatigue H/O metastatic neoplastic disease Personal history of unspecified malignant neoplasm documented in this encounter Administered Medications Inactive Administered Medications - up to 3 most recent administrations Medication Order MAR Action Action Date Dose Rate Site 0.9% NaCl IV Bolus 1,000 mL, at 983.61 mL/hr, Administer over 61 Minutes, NOW, 1 dose, On Wed07/19/18 at 0830 $ New Bag/Syringe 07/19/2018 9:03 AM UNDERGRADUATE ADVISOR 1,000 mL 983.61 mL/hr budesonide-formoterol (SYMBICORT) 160-4.5 MCG/ACT inhaler 2 puff 2 puff, Inhalation, 2 TIMES DAILY, 730 doses, First dose on Wed07/19/18 at 0930, Last dose on Wed07/18/19 at 2100, Rinse mouth after usage . WASTE DISPOSAL INSTRUCTION: Send to Pharmacy for Disposal. . $ Given 07/19/2018 9:39 AM UNDERGRADUATE ADVISOR 2 puffs clonazePAM (KlonoPIN) tablet 0.5 mg 0.5 mg, Oral, 2 TIMES DAILY, First dose on Wed07/19/18 at 1000, Until Discontinued $ Given 07/19/2018 9:31 AM UNDERGRADUATE ADVISOR 0.5 mg clonazePAM (KlonoPIN) tablet 0.5 mg 0.5 mg, Oral, 2 TIMES DAILY, First dose (after last modification) on Wed07/19/18 at 1745, Until Discontinued $ Given 07/19/2018 5:47 PM UNDERGRADUATE ADVISOR 0.5 mg fentaNYL (PF) (SUBLIMAZE) injection 50 mcg 50 mcg, Intravenous, NOW, 1 dose, On Wed07/18/18 at 2015 $ Given 07/18/2018 8:10 PM UNDERGRADUATE ADVISOR 50 mcg fentaNYL (PF) (SUBLIMAZE) injection 50 mcg 50 mcg, Intravenous, NOW, 1 dose, On Wed07/19/18 at 0215 $ Given 07/19/2018 2:49 AM UNDERGRADUATE ADVISOR 50 mcg fentaNYL (PF) (SUBLIMAZE) injection 50 mcg 50 mcg, Intravenous, NOW, 1 dose, On Wed07/19/18 at 0745 $ Given 07/19/2018 7:46 AM UNDERGRADUATE ADVISOR 50 mcg fentaNYL (SUBLIMAZE) injection 0.05 mg/mL ADS Med 1 dose, Starting on Wed07/18/18 at 2003, Until Wed07/18/18 at 2009, Created by haile thomas HYDROcodone-acetaminoph en (NORCO) 5-325 MG tablet 2 tablet 2 tablet, Oral, NOW, 1 dose, On Wed07/19/18 at 1045 $ Given 07/19/2018 10:45 AM UNDERGRADUATE ADVISOR 2 tablets LORazepam (ATIVAN) injection 1 mg 1 mg, Intravenous, ONCE, 1 dose, On Wed07/18/18 at 2245 $ Given 07/18/2018 10:29 PM UNDERGRADUATE ADVISOR 1 mg midazolam (VERSED) injection 2 mg 2 mg, Intravenous, NOW, 1 dose, On Wed07/18/18 at 1715 $ Given 07/18/2018 5:46 PM UNDERGRADUATE ADVISOR 2 mg oxyCODONE (immediate release) (ROXICODONE) tablet 10 mg 10 mg, Oral, ONCE, 1 dose, On Wed07/19/18 at 1800 $ Given 07/19/2018 5:48 PM UNDERGRADUATE ADVISOR 10 mg documented in this encounter Active and Recently Administered Medications Times are shown in UNDERGRADUATE ADVISOR. Scheduled Medication Order 07/17/2018 07/18/2018 07/19/2018 0.9% NaCl IV Bolus (COMPLETED) 1,000 mL, at 983.61 mL/hr, Administer over 61 Minutes, NOW, 1 dose, On Wed07/19/18 at 0830 0903 ($ New Bag/Syri nge - Provider: Luz Deluna, RN)1600 (Stopped - Provider: Luz Deluna, RN) 0.9% NaCl IV Bolus 1,000 mL, at 3,000 mL/hr, Administer over 20 Minutes, NOW, 1 dose, On Wed07/19/18 at 0900 0900 (Due) budesonide-formoterol (SYMBICORT) 160-4.5 MCG/ACT inhaler 2 puff 2 puff, Inhalation, 2 TIMES DAILY, 730 doses, First dose on Wed07/19/18 at 0930, Last dose on Wed07/18/19 at 2100, Rinse mouth after usage . WASTE DISPOSAL INSTRUCTION: Send to Pharmacy for Disposal. . 0939 ($ Given - Provider: Luz Deluna, RADHA) clonazePAM (KlonoPIN) tablet 0.5 mg (CANCELED) 0.5 mg, Oral, 2 TIMES DAILY, First dose on Wed07/19/18 at 1000, Until Discontinued 0931 ($ Given - Provider: Luz Deluna, RN) clonazePAM (KlonoPIN) tablet 0.5 mg 0.5 mg, Oral, 2 TIMES DAILY, First dose (after last modification) on Wed07/19/18 at 1745, Until Discontinued 1747 ($ Given - Provider: Luz Deluna, RADHA) fentaNYL (PF) (SUBLIMAZE) injection 50 mcg (COMPLETED) 50 mcg, Intravenous, NOW, 1 dose, On Wed07/18/18 at 2015 2009 ($ Given - Provider: Dunia Black, RADHA) fentaNYL (PF) (SUBLIMAZE) injection 50 mcg (COMPLETED) 50 mcg, Intravenous, NOW, 1 dose, On Wed07/19/18 at 0215 0249 ($ Given - Provider: Dunia Black, RADHA) fentaNYL (PF) (SUBLIMAZE) injection 50 mcg (COMPLETED) 50 mcg, Intravenous, NOW, 1 dose, On Wed07/19/18 at 0745 0746 ($ Given - Provider: Luz Deluna, RADHA) HYDROcodone-acetaminophen (NORCO) 5-325 MG tablet 2 tablet (COMPLETED) 2 tablet, Oral, NOW, 1 dose, On Wed07/19/18 at 1045 1045 ($ Given - Provider: Luz Deluna, RADHA) LORazepam (ATIVAN) injection 1 mg (COMPLETED) 1 mg, Intravenous, ONCE, 1 dose, On Wed07/18/18 at 2245 2229 ($ Given - Provider: Dunia Black RN) midazolam (VERSED) injection 2 mg (COMPLETED) 2 mg, Intravenous, NOW, 1 dose, On Wed07/18/18 at 1715 1746 ($ Given - Provider: Faye Babin RN) oxyCODONE (immediate release) (ROXICODONE) tablet 10 mg (COMPLETED) 10 mg, Oral, ONCE, 1 dose, On Wed07/19/18 at 1800 1748 ($ Given - Provider: Luz Deluna, RADHA) documented in this encounter Care Teams Vessel Welder Relationship Specialty Start Date End Date Blake Lindsey MD [address] [place] [address] PCP - General 05/20/16 documented as of this encounter
--- OUTSIDE RECORDS SUMMARY | 2024-07-29 17:22 | XMS_ITS | Encounter Summary ---
Author Organization [facility] Health Address [address] [place] [address] Care Team Providers Care Cyber Incident Handler Name Role Phone Blake Lindsey MD Primary Care Provider [phone] Encounter Details Date Type Department Care Team (Late st Contact Info) Description 06/06/2020 2:20 PM SCALE BALANCER Video Visit [facility] Hematology and Oncology-[address] [address] Castillo Max MD [address] [place] [address] [place] [id number] Hodgkin lymphoma, unspecified Hodgkin lymphoma type, [...] as of this encounter Progress Notes * Atilio Anderson MD - 06/06/2020 10:29 PM CST [facility] Hematology/Oncology Clinic Date: 06/06/2020 Patient Name: Lakeisha Alejandra Date of : 1970 Chargemaster Analyst/Oncologist: Castillo Max MD Primary Care Provider: Blake Lindsey MD Summary and Interval History: Lakeisha Alejandra is a 49 year old female with classic Hodgkin [...] factor support and grade IV thrombocytopenia with platelettransfusion refractoriness. Course was complicated by E.coli bacteremia requiring port removal. Since her last visit in January 2019, Ms. Alejandra reports having had intermittent episodes of night sweats, which were worked up during the last visit with hormone levels suggestive of perimenopausal symptoms. She denies any unintentional weight loss, loss of appetite, fevers, chills, nausea, vomiting, abdominal pain. She has had pain in her right ear and occasional discharge from her left ear for the past 3 months; has not seen an ENT in the recent past. Saw Dr. Ochoa of ENT ~1 year ago whenexamination was essentially normal. Review of Systems: Positive symptoms are notated in bold: - Constitutional: Fever, chills, sweats, weight loss/gain - HEENT: Sinus drainage, tenderness, congestion - Cardiovascular: Chest pain, palpitations, orthopnea, dyspnea on exertion - Respiratory: Shortness of breath, asthma, wheezing - Gastrointestinal: Nausea, vomiting, diarrhea, constipation, abdominal pain - Genitourinary: Dysuria, frequency, urgency - Musculoskeletal: Joint pain, swelling - Neurological: Numbness, tingling, paresthesias - Endocrine: Heat intolerance, cold intolerance - Psychiatric: Depression, psychosis Vital Signs and Physical Exam: There were no vitals filed for this visit. Physical examination: General: Well-developed, well-nourished, in no apparent distress. Head: Atraumatic, normocephalic. Eyes: Pupils equally reactive to light and accommodation, extraocular movements intact. Throat: Mucous membranes moist, oropharynx clear. Neck: Supple, no lymphadenopathy, no thyromegaly. Cardiovascular: Normal rate, regular rhythm, no murmurs, S1, S2 normal. Respiratory: Clear to auscultation bilaterally, no wheezes, no rales. Abdomen: Soft, non-tender, non-distended, bowel sounds positive. Extremities: Appropriately warm, no edema. Neurologic: Alert and oriented x 3, no focal neurologic deficits. Labs: Recent Labs Component Name 06/06/20 1348 01/11/19 1432 11/17/18 1334 WBC 7.4 9.9 11.3* RBC 4.54 4.89 4.62 HGB 14.6 16.1* 15.3 HCT 44.0 46.8* 44.5 MCV 96.9 95.7 96.3 MCHC 33.2 34.4 34.4 PLTCOUNT 165 205 208 NEUTPCT 72.0* 71.6* 70.7* NEUTABS 5.4 7.1* 8.0* Recent Labs Component Name 06/06/20 1348 01/11/19 1432 11/17/18 1334 POTASSIUM 4.1 3.3* 3.7 CO2 22 27 28 BUN 11 8 13 CREATININE 0.7 0.8 0.8 GLUCOSE 128* 114 102 CALCIUM 9.8 10.4* 10.1 ALKPHOS 95 96 93 ALT 14 26 54 AST 14 18 28 EGFR >60 >60 >60 Recent Labs Component Name 01/19/19 1514 04/17/17200806/15/14 1930 INR 1.0 1.1 1.1 Recent Labs Component Name 01/19/19 1514 04/17/17200806/15/14 1930 PTT 31.0 32.6 36.2 Assessment and Plan: 49 year old female with classic Hodgkin Lymphoma, stage IV, IPS 3 with biopsy- proven stage IV soft tissue/bone disease, s/p escalated BEACOPP with subsequent remission, currently on clinical surveillance and presenting for interval follow-up. # Classic Hodgkin lymphoma - Stage IV, IPS 3 with biopsy-proven stage IV soft tissue/bone disease, relatively rapid growth, diagnosed in September 2012. - Underwent extensive spine surgery with fixation. - Started escalated BEACOPP 11/29/12 and completed 03/20/13. She received dose reduction cycles 4-6 (one dose level 4 and 5, two dose levels 6) due to febrile neutropenia in spite of growth factor support and grade IV thrombocytopenia with platelet transfusion refractoriness. - Most recent PET-CT in January 2019 showing no definite PET evidence of malignancy ([place] 1). - Labs reviewed today, unremarkable. Will continue clinical surveillance with labs in 1 year. # Right ear pain and left ear discharge - Right-sided ear pain with associated intermittent left ear discharge for the past 3 months. No signs of mastoiditis or systemic infection. - Will refer to ENT Dr. Jah Ochoa. The patient was seen and the plan was discussed with the Hematology and Oncology attending physician Dr. Castillo Max MD. Atilio Crabtree MD Hematology and Oncology Fellow [facility] [employer] I saw and examined the patient with the medical student and the resident. I have verified all details of the medical student's note and agree with the resident's documentation. Date of Service: 06-06-20 Castillo Max MD Video/audio visit Fellow and patient in exam room, I was out of exam room COVID countermeasures Patient consented 20 minutes in discussion Hodgkin lymphoma, in clinical remission R/L ear symptoms, refer to ENT RTC 1 year with visit/labs only I saw Lakeisha Alejandra with Dr Crabtree, examined the patient, reviewed the note, and participated in all of the medical decisions. Castillo Max M.D. Director, Blood and Marrow Transplantation Threshing Department Supervisor, Department of Internal Medicine [facility] E BALANCER documented in this encounter Plan of Treatment Not on file documented as of this encounter Visit Diagnoses Diagnosis Hodgkin lymphoma, unspecified Hodgkin lymphoma type, unspecified body region (HCC)- Primary documented in this encounter Care Teams Cyber Incident Handler Relationship Specialty Start Date End Date Blake Lindsey MD [address] [place] [address] PCP - General 05/20/16 documented as of this encounter
--- OUTSIDE RECORDS SUMMARY | 2024-07-29 17:22 | XMS_ITS | Encounter Summary ---
Author Organization [facility] Health Address [address] [place] [address] Care Team Providers Care Ict Business Analyst Name Role Phone Blake Lindsey MD Primary Care Provider [phone] Reason for Referral * Radiology Services (Routine) - Closed Specialty Diagnoses / Procedures Referred By Contzohreh t Referred To Contact Mammography Diagnoses Disorder of breast Breast lump Procedures MAMMO BILAT DIAGNOSTIC Castillo Max MD [address] [place] [address] [facility] Op [address] [place] [address] Referral ID Status Reason Start Date Expiration Date Visits Re quested Visits Authorized [id number] Closed 11/17/2018 05/16/2019 1 1 Encounter Details Date Type Department Care Team (Late st Contact Info) Description 11/17/2018 2:00 PM CDT [facility] [address] [place] [address] Castillo Max MD [address] [place] [address] Breast lump (Primary Dx); Disorder of breast Social History Tobacco Use Types Packs/Day Years [...] Sign Reading Time Taken Comments Blood Pressure 135/86 11/17/2018 1:47 PM CDT Pulse 100 11/17/2018 1:47 PM CDT Temperature 36.7 ??C (98 ??F) 11/17/2018 1:47 PM CDT Respiratory Rate 20 11/17/2018 1:47 PM CDT Oxygen Saturation 97% 11/17/2018 1:47 PM CDT Inhaled Oxygen Concentration - - Weight 98.4 kg (216 lb 14.4 oz) 11/17/2018 1:47 PM CDT Height 160 cm (5' 3 ) 11/17/2018 1:47 PM CDT Body Mass Index 38.42 11/17/2018 1:47 PM CDT documented in this encounter Progress Notes * Castillo Max MD - 11/23/2018 9:16 AM CDT Lakeisha Alejandra is a patient with [...] Ecoli bacteremia requiring PORT removal. Lakeisha reports she is troubled by chronic back and shoulder pain. She recently had a steroid injection in her left shoulder but it didn't help. She wants to find a new pain doctor because she is unhappy with Dr. Ornelas for not giving her oxycodone.She reports she has had 4 ear infections, pneumonia and several bouts of bronchitis since August. ROS:GENERAL: Negative for any fevers, chills, or [...] nausea, vomiting, bright red blood per rectum, melena. GENITOURINARY: Negative for any dysuria, hematuria, incontinence. INTEGUMENTARY: Negative for any rashes, cuts, insect bites. RHEUMATOLOGIC: Negative for any photosensitive rashes, history of vasculitis or kidney problems.Chronic back pain HEMATOLOGIC: Negative for any abnormal bruising or bleeding.c/o frequent recurrent infections Meds: Current Outpatient Prescriptions: ??? albuterol (PROVENTIL;VENTOLIN) (2.5 MG/3ML) 0.083% nebulizer solution, INHALE 3 ML BY NEBULIZATION 3 TIMES DAILY, Disp: , Rfl: 0 ??? albuterol HFA (PROVENTIL;VENTOLIN;PROAIR) 108 (90 BASE) MCG/ACT inhaler, , Disp: , Rfl: ??? ALPRAZolam (XANAX) 0.5 MG tablet, TK 1 T PO TID PRN, Disp: , Rfl: 0 ??? atorvastatin (LIPITOR) 10 MG tablet, Take 10 mg by mouth DAILY., Disp: , Rfl: 1 ??? budesonide-formoterol (SYMBICORT) 160-4.5 MCG/ACT inhaler, Inhale 2 puffs by mouth BID., Disp: 1 Inhaler, Rfl: 5 ??? buprenorphine (BUTRANS) 5 MCG/HR patch, Apply 1 patch to skin every 7 days DX M54.12, Disp: 4 patch, Rfl: 0 ??? Cyanocobalamin (VITAMIN B 12) 100 MCG, Take by mouth. (Patient taking differently: Take by mouth once daily ), Disp: , Rfl: ??? cyclobenzaprine (FLEXERIL) 10 MG tablet, TK 1 T PO TID PRN, Disp: , Rfl: 0 ??? furosemide (LASIX) 20 MG tablet, TK 1 T PO D, Disp: , Rfl: 0 ??? lamoTRIgine (LAMICTAL) 25 MG tablet, TK 2 TS PO QD, Disp: , Rfl: 0 ??? nystatin (MYCOSTATIN) 668652 UNIT/GM powder, , Disp: , Rfl: 0 ??? ondansetron (ZOFRAN) 8 MG tablet, TK 1 T PO Q 8 H PRN, Disp: , Rfl: 0 ??? QUEtiapine (SEROQUEL) 100 MG tablet, TK 1 T PO QD HS, Disp: , Rfl: 0 ??? SENEXON-S 8.6-50 MG tablet, TK 2 TS PO QD, Disp: , Rfl: 1 ??? SUMAtriptan (IMITREX) 50 MG tablet, , Disp: , Rfl: 0 VS: Blood pressure 135/86, pulse 100, temperature 98 ??F (36.7 ??C), temperature source Oral, resp.rate 20, height 1.6 m (5' 3 ), weight 98.4 kg (216 lb 14.4 oz), SpO2 97 %. PE:A&O x 3 Heart: RRR Lungs: CTA Abd: soft, BS+ Skin: no rash Lymph: no palpable cervical or axillary adenopathy HEENT: normocephalic, no mucositis, neck supple Extrem: no deformity Labs: Recent Labs Component Name 11/17/18133308/21/18 1023 07/18/18 1618 WBC 11.3* 10.3 9.3 RBC 4.62 4.79 4.67 HGB 15.3 15.5 15.5 HCT 44.5 45.1* 44.3 MCV 96.3 94.2 94.9 MCHC 34.4 34.4 35.0 PLTCOUNT 208 230 207 NEUTPCT 70.7* 74.9* 67.1 NEUTABS 8.0* 7.8* 6.2 Recent Labs Component Name 11/17/18 1334 08/21/18 1023 07/18/18 1618 POTASSIUM 3.7 3.2* 3.5 CO2 28 22 23 BUN 13 6* 5* CREATININE 0.8 0.7 0.8 CALCIUM 10.1 10.0 9.6 ALT 54 47 63* ALKPHOS 93 99 104 AST 28 32 39* EGFR >60 >60 >60 A/P: Hodgkin Lymphoma diagnosed in September 2012. Remains in CR. Unlikely to recur at this point. RTC yearly with labs and visit. Chronic pain. Gave her the number for a bridge painter today to call as she has no specialist at this point. Breast lump. Patient has felt this. Recommended a bilateral diagnostic mammogram, which she will have at [facility]. Recurrent sinusitis. She has no hypogamm and incomplete relief with abx. Referral to ENT at [facility] made today. Castillo Max M.D. Director, Blood and Marrow Transplantation President Practicing Urologist, Department of Internal Medicine [facility] documented in this encounter Plan of Treatment Not on file documented as of this encounter Results * MAMMO BILAT DIAGNOSTIC [...] sonography and digital palpation was performed by tobacco drummer and physician throughout the inferior left breast. Multiple mobile lumps identified in this region on palpation correspond to fat lobules. No suspicious mass or dominant cyst is seen. This examination was subjected to CAD analysis. The results of this examination were discussed with the patient by Dr. Boyd. Castillo Max MD MAMMO ORDERABLES documented in this encounter Visit Diagnoses Diagnosis Breast lump- Primary Lump or mass in breast Disorder of breast Unspecified breast disorder Disorder of breast Unspecified breast disorder Breast lump Lump or mass in breast documented in this encounter Care Teams Ict Business Analyst Relationship Specialty Start Date End Date Blake Lindsey MD [address] [place] [address] PCP - General 05/20/16 documented as of this encounter
--- OUTSIDE RECORDS SUMMARY | 2024-07-29 17:22 | XMS_ITS | Encounter Summary ---
Author Organization [facility] Health Address [address] [place] [address] Care Team Providers Care Brick Paving Checker Name Role Phone Blake Lindsey MD Primary Care Provider [phone] Reason for Referral * Radiology Services (Routine) - Closed Specialty Diagnoses / Procedures Referred By Contac t Referred To Contact Positron Emission Tomography Diagnoses Hodgkin lymphoma of extranodal or solid organ site (HCC) Hodgkin lymphoma, unspecified Hodgkin lymphoma type, unspecified body region (HCC) Procedures PET CT WHOLE BODY Castillo Max MD [address] [place] [address] [address] [place] [address] [facility] Pet Op [address] [place] [id number] Referral ID Status Reason Start Date Expiration Date Visits Re quested Visits Authorized [id number] Closed 01/19/2019 07/18/2019 1 1 Reason for Visit * Radiology Services (Routine) - Closed Specialty Diagnoses / Procedures Referred By Contac t Referred To Contact Positron Emission Tomography Diagnoses Hodgkin lymphoma of extranodal or solid organ site (HCC) Hodgkin lymphoma, unspecified Hodgkin lymphoma type, unspecified body region (HCC) Procedures PET CT WHOLE BODY Castillo Max MD [address] [place] [address] [facility] Op [address] [place] [address] Referral ID Status Reason Start Date Expiration Date Visits Re quested Visits Authorized [id number] Closed 01/19/2019 07/18/2019 1 1 Encounter Details Date Type Department Care Team (Latest Contact Info) Description 02/13/2019 10:31 AM CDT - 02/13/2019 10:41 AM CDT Hospital Encounter [facility] PET [address] [place] [address] Castillo Max MD [address] [place] [address] Discharge Disposition: Home or Self Care Social [...] Spasms of the Bronchus 1 vial 01/12/2019 furosemide (LASIX) 20 MG tabletIndications:Bernardo ma Take 1 tablet by mouth once daily Reasons: Edema 30 tablet 01/12/2019 QUEtiapine (SEROQUEL) 100 MG tabletIndications:Ede or Depressive Disorder Take 1 tablet by mouth at bedtime Reasons: Major Depressive Disorder 30 tablet 01/12/2019 SUMAtriptan (IMITREX) 50 MG tabletIndications:Jatin litzy Take 1 tablet by mouth once as needed for Migraine Maximum daily dose: 200mg/24 hours Reasons: Migraine Headache 30 tablet 01/12/2019 atorvastatin (LIPITOR) 10 MG tabletIndications:Hyp erlipidemia Take 1 tablet by mouth at bedtime Reasons: High Amount of Fats in the Blood 30 tablet 01/12/2019 04/10/2019 budesonide-formoterol (SYMBICORT) 160-4.5 MCG/ACT inhalerIndications:Ch ronic Bronchitis Inhale 2 puffs by mouth 2 times daily Reasons: Chronic Bronchitis 1 Inhaler 01/12/2019 03/09/2019 buprenorphine (BUTRANS) 20 MCG/HR patchIndications:Mode rate to Severe Chronic Pain Apply 1 patch to skin every 7 days Reasons: Moderate to Severe Chronic Pain 4 patch 01/12/2019 03/09/2019 hydrOXYzine hcl (ATARAX) 25 MG tabletIndications:Anx iety Take 1 tablet by mouth 3 times daily as needed (anxiety) Reasons: Feeling Anxious 90 tablet 01/12/2019 03/09/2019 ibuprofen (MOTRIN) 600 MG tablet Take 600 mg by mouth 3 times daily 01/06/2019 09/11/2020 lamoTRIgine (LAMICTAL) 100 MG tablet TK 1 T PO QD 0 01/04/2019 04/10/2019 QUEtiapine (SEROQUEL) 50 MG tablet Take 50 mg by mouth at bedtime 0 01/04/2019 07/15/2021 SENEXON-S 8.6-50 MG tabletIndications:Con stipation Take 1 tablet by mouth once daily Reasons: Constipation 30 tablet 01/12/2019 07/15/2021 terbinafine (LAMISIL) 250 MG tablet Take 250 mg by mouth once daily 2 01/30/2019 07/15/2021 documented as of this encounter Plan of Treatment Not on file documented as of this encounter Procedures Procedure Name Priority Date/Time Associated Diagnosis Comments PET CT WHOLE BODY DEMETRIO 02/13/2019 12: 14 PM CDT Hodgkin lymphoma of extranodal or solid organ site Hodgkin lymphoma, unspecified Hodgkin lymphoma type, unspecified body region (HCC) GLUCOSE SCREEN - POCT (IP) [facility] STAT 02/13/2019 10:32 AM CDT documented in this encounter Results * PET CT WHOLE [...] Charlie Alexis on 02/13/2019 1:44 PM . IDr. MARSHAL D.O. have personally reviewed and interpreted this examination/study. This report was electronically signed by MARSHAL PATEL D.O. on02/13/2019 4:32 PM . Castillo Max MD NM ORDERABLES * (ABNORMAL) GLUCOSE SCREEN - POCT (IP) [facility] (02/13/2019 10:32 AM CDT) Glucose WB/POC 117(A) 70 - 115 mg/dL [facility] POCT TESTING Blood BLOOD SPECIMEN / Unknown 02/13/2019 10:32 AM CDT Castillo Max MD LAB - POINT OF CAR E ORDERABLES [facility] POCT TESTING [address] [phone] documented in this encounter Visit Diagnoses Diagnosis Hodgkin lymphoma, unspecified Hodgkin lymphoma type, unspecified body region (HCC) documented in this encounter Administered Medications Inactive Administered Medications - up to 3 most recent administrations Medication Order MAR Action Action Date Dose Rate Site F-18 fludeoxyglucose (FDG) injection SOLN 10.69 millicurie 10.69 millicurie, Intravenous, ONCE, 1 dose, On 02/13/19 at 1045 $ Given 02/13/2019 10:33 AM CDT 10.69 millicuries documented in this encounter Care Teams Brick Paving Checker Relationship Specialty Start Date End Date Blake Lindsey MD [address] [place] [address] PCP - General 05/20/16 documented as of this encounter
--- OUTSIDE RECORDS SUMMARY | 2024-07-29 17:22 | XMS_ITS | Encounter Summary ---
Author Organization [facility] Health Address [address] [place] [address] Care Team Providers Care Director Epidemiology Name Role Phone Blake Lindsey MD Primary Care Provider [phone] Reason for Referral * Radiology Services (Routine) - Closed Specialty Diagnoses / Procedures Referred By Ariel cano Referred To Contact CT Scan Diagnoses Parotid nodule Procedures CT NECK SOFT TISSUE W Nia Quintanilla, JUWAN-STAGING TECHNICIAN [address] [place] [address] Referral ID Status Reason Start Date Expiration Date Visits Re quested Visits Authorized [id number] Closed 09/26/2020 09/26/2021 1 1 Reason for Visit * Radiology Services (Routine) - Closed Specialty Diagnoses / Procedures Referred By Ariel cano Referred To Contact CT Scan Diagnoses Parotid nodule Procedures CT NECK SOFT TISSUE W Nia Quintanilla, JUWAN-STAGING TECHNICIAN [address] [place] [address] Referral ID Status Reason Start Date Expiration Date Visits Re quested Visits Authorized [id number] Closed 09/26/2020 09/26/2021 1 1 Encounter Details Date Type Department Care Team (Latest Contact Info) Description 10/18/2020 1:05 PM CDT - 10/18/2020 11:59 PM CDT Hospital Encounter [facility] CAT SCAN [address] [place] [address] Nia Augustin, GLOST TILE SORTER-STAGING TECHNICIAN [address] [place] [address] Discharge Disposition: Home or Self Care Social [...] tablet by mouth once daily 06/21/2020 [facility]STOP [id number] UNIT/GM powder Apply 1 Dose to affected [...] fluticasone propionate (FLONASE) 50 MCG/ACT nasal spray [place] 2 sprays into each nostril once daily [...] 09/11/2020 07/15/2021 NARCAN 4 MG/0.1ML nasal spray [place] 4 mg into each nostril as needed [...] CT NECK SOFT TISSUE W CONT Routine 10/18/2020 1:19 PM CDT Parotid nodule CREATININE - POCT INTERFACED Routine 10/18/2020 1:10 PM CDT documented in this encounter Results * [...] node. Dictated by Balta Arellano DO (residential recycle driver) I, Dr. JAJA AKERS have personally reviewed [...] node. Dictated by Balta Arellano DO (residential recycle driver) I, Dr. JAJA AKERS have personally reviewed and interpreted this examination/study. This report was electronically signed by JAJA AKERS on 10/18/2020 3:35PM . Nia Augustin GLOST TILE SORTER-STAGING TECHNICIAN CT ORDERABLES * CREATININE - POCT INTERFACED (10/18/2020 1:10 PM CDT) Creatinine POCT 0.75 0.30 - 1.30 mg/dL 10/18/2020 4:21 PM CDT [facility] eGFR >60 >60 mL/min/1.7 3 m2 10/18/2020 4:21 PM CDT [facility] Blood BLOOD SPECIMEN / Unknown 10/18/2020 1:10 PM CDT 10/18/2020 4:21 PM CDT Nia Augustin APRN-STAGING TECHNICIAN LAB - POINT OF CAR E ORDERABLES [facility] [address] [place] [id number], [facility] [phone] documented in this encounter Visit Diagnoses Diagnosis Parotid nodule Other specified diseases of the salivary glands documented in this encounter Administered Medications Inactive Administered Medications - up to 3 most recent administrations Medication Order MAR Action Action Date Dose Rate Site iopamidol (ISOVUE 370) 76 % contrast Intravenous, CONTRAST ONCE, Starting on 10/18/20 at 1306, Until 10/19/20 at 0133 $ Given - Contrast 10/18/2020 1:11 PM CDT 100 mL documented in this encounter Care Teams Director Epidemiology Relationship Specialty Start Date End Date Blake Lindsey MD [address] [place] [address] PCP - General 05/20/16 documented as of this encounter
--- OUTSIDE RECORDS SUMMARY | 2024-07-29 17:22 | XMS_ITS | Encounter Summary ---
Author Organization [facility] Health Address [address] [place] [address] Care Team Providers Care Heel Cover Splitter Name Role Phone Blake Lindsey MD Primary Care Provider [phone] Reason for Visit * Reason Comments Ear Problem chk Encounter Details Date Type Department Care Team (Late st Contact Info) Description 08/22/2020 10:00 AM PARCEL POST CLERK Office Visit [facility] [address] [place] [id number] Nia Augustin, FLEXOGRAPHIC PRESS SET UP OPERATOR-HEALTHCARE NETWORK CONSULTANT [address] [place] [address] Non-seasonal allergic rhinitis, unspecified trigger (Primary Dx); Right otitis media with effusion; Parotid nodule Social History Tobacco Use Types [...] Pressure - - Pulse - - Temperature 36.1 ??C (97 ??F) 08/22/2020 10:07 AM PARCEL POST CLERK Respiratory Rate - - Oxygen Saturation - - Inhaled Oxygen Concentration - - Weight 90 kg (198 lb 6.4 oz) 08/22/2020 10:07 AM PARCEL POST CLERK Height 160 cm (5' 3 ) 08/22/2020 10:07 AM PARCEL POST CLERK Body Mass Index 35.14 08/22/2020 10:07 AM PARCEL POST CLERK documented in this encounter Functional Status Functional [...] Instructions * Patient Instructions* Geoffrey Janet - 08/22/2020 10:13 AM PARCEL POST CLERK Arlettek marie for visiting [facility] Otolaryngology - Head & Neck [...] an appointment, please call our office at [phone] Wednesday through Wednesday from 8:30 am to4:30 pm. You can also request a routine appointment through your [employer] account. ??? Prescription Refills Contact your pharmacy [...] call the medical exchangeat and ask the coating and embossing unit operator to page the ENT physician air pollution control engineer. *Caller ID blocking service will need to be turned off for your call to be returned. We also specialize in Hearing Aids, Allergy testing, swallowing disorders, voice problems, cancer diagnosis, and so much more. Visit our website at [email or web address] for information about our practice and an interactive health encyclopedia. EL POST CLERK documented in this encounter Progress Notes * Nia Augustin, JUWAN-HEALTHCARE NETWORK CONSULTANT - 08/22/2020 10:40 AM CST Images from the original note were not included. [facility] Department of Otolaryngology DATE OF VISIT: 08/22/2020 CHIEF COMPLAINT Chief Complaint Patient presents with ??? Ear Problem chk HPI Lakeisha Alejandra is a 49 year old female Presents to the office today with complaints of otalgia and sinus congestion. Patent States her symptoms started a few months ago. She deneis any tinnitus or otorrhea. She has complaints of sinus congestion, nasal crusting (AM>PM), intermittent Otaliga (R>L), occasional muffled hearing, and headahces. She states she has gone to her PCP multiple timeswith similar complaints and was subsequently treated for fluid or infections. Her last antibiotic was 2 months ago. 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 Patient is unaware of any precipitating events and she feels previously prescribed drops helped to alleviate the pain slightly. Patient denies any fever, chills, sinus pain, changes to her vision or photophobia. Patient did undergo a complete audiogram today which was essential normal. MEDICAL HISTORY Past Medical History: Past Medical History: Diagnosis Date ??? Asthma ??? COPD (chronic obstructive pulmonary disease) ??? High cholesterol ??? Hodgkins lymphoma ??? Migraine Family History: Negative for easy bruising/bleeding, problems with anesthesia, or head/neck cancer. Family History Problem Relation Name Age of Onset ??? Heart Disease Mother Status: Alive ??? Diabetes Mother ??? Hypertension Mother ??? Cancer Father Status: Alive ??? Heart Disease Father ??? None Known Brother Status: Alive MEDICATIONS Current Outpatient Medications Medication Sig ??? albuterol (PROVENTIL;VENTOLIN) (2.5 MG/3ML) 0.083% nebulizer solution INHALE 3 ML BY NEBULIZATION 3 TIMES DAILY Reasons: Disease Involving Spasms of the Bronchus (Patient taking differently: Inhale 3 mg by mouth 3 times daily INHALE 3 ML BY NEBULIZATION 3 TIMES DAILY Reasons: Disease Involving Spasms of the Bronchus) ??? ANORO ELLIPTA 62.5-25 MCG/INH inhaler Inhale 1 puff by mouth once daily ??? baclofen (LIORESAL) 20 MG tablet ??? cetirizine (ZYRTEC) 10 MG tablet Take 10 mg by mouth once daily ??? escitalopram (LEXAPRO) 20 MG tablet TAKE 1 TABLET BY MOUTH EVERY DAY IN THE MORNING ??? fluticasone propionate (FLONASE) 50 MCG/ACT nasal spray Oxford 2 sprays into each nostril once daily ??? furosemide (LASIX) 20 MG tablet Take 1 tablet by mouth once daily Reasons: Edema ??? gabapentin (NEURONTIN) 300 MG capsule Take 300 mg by mouth 3 times daily ??? ibuprofen (MOTRIN) 600 MG tablet Take 600 mg by mouth 3 times daily ??? meloxicam (MOBIC) 15 MG tablet Take 15 mg by mouth once daily ??? methylPREDNISolone (MEDROL DOSEPAK) 4 MG tablet Take by mouth as directed Take as directed by mouth per package instructions. ??? montelukast (SINGULAIR) 10 MG tablet Take 10 mg by mouth once daily ??? mupirocin (BACTROBAN) 2 % ointment Apply to affected area 3 times daily To bilateral nares ??? naproxen (NAPROSYN) 500 MG tablet ??? NARCAN 4 MG/0.1ML nasal spray Oxford 4 mg into each nostril as needed ??? NYSTOP 254019 UNIT/GM powder Apply 1 Dose to affected area 2 times daily ??? omeprazole (PRILOSEC) 20 MG capsule Take 20 mg by mouth once daily ??? ondansetron (ZOFRAN) 4 MG tablet Take 4 mg by mouth as needed ??? potassium chloride ER (KLOR-CON) 20 MEQ tablet Take 1 tablet by mouth once daily ??? QUEtiapine (SEROQUEL) 100 MG tablet Take 1 tablet by mouth at bedtime Reasons: Major DepressiveDisorder ??? QUEtiapine (SEROQUEL) 50 MG tablet Take 50 mg by mouth at bedtime ??? RELISTOR 150 MG tablet TAKE 3 TABLETS BY MOUTH EVERY DAY IN THE MORNING ??? SENEXON-S 8.6-50 MG tablet Take 1 tablet by mouth once daily Reasons: Constipation ??? spironolactone (ALDACTONE) 25 MG tablet Take 1 tablet by mouth once daily ??? SUMAtriptan (IMITREX) 50 MG tablet Take 1 tablet by mouth once as needed for Migraine Maximum daily dose: 200mg/24 hours Reasons: Migraine Headache ??? terbinafine (LAMISIL) 250 MG tablet Take 250 mg by mouth once daily ??? traZODone (DESYREL) 50 MG tablet Take 50 mg by mouth nightly as needed ??? TRELEGY ELLIPTA 100-62.5-25 MCG/INH Inhale 1 puff by mouth every 6 hours as needed ??? XTAMPZA ER 9 MG capsule Take 9 mg by mouth 2 times daily No current facility-administered medications for this visit. ALLERGIES Allergies Allergen Reactions ??? Amoxicillin Rash ??? Penicillins Rash ??? Codeine Other Passes out, Passes out ??? 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 Review of Systems Constitutional: Negative for chills, diaphoresis, fever, malaise/fatigue and weight loss. HENT: Positive for congestion and ear pain. Negative for ear discharge, hearing loss, nosebleeds, sinus pain, sore throat and tinnitus. Nasal crusting Aural fullness crunching with chewing and mouth opening Eyes: Negative for blurred vision, photophobia, pain and redness. Respiratory: Negative for cough, hemoptysis, sputum production, shortness of breath, wheezing and stridor. Cardiovascular: Negative for chest pain. Gastrointestinal: Negative for abdominal pain, constipation, diarrhea, heartburn, nausea and vomiting. Genitourinary: Negative for dysuria, frequency and urgency. Musculoskeletal: Negative for falls, myalgias and neck pain. Skin: Negative for itching and rash. Neurological: Positive for headaches. Negative for dizziness, tingling, tremors, sensory change, speech change, focal weakness, seizures, loss of consciousness and weakness. Endo/Heme/Allergies: Negative for environmental allergies and polydipsia. Does not bruise/bleed easily. Psychiatric/Behavioral: Negative for depression, hallucinations, memory loss, substance abuse and suicidal ideas. The patient is not nervous/anxious. PHYSICAL EXAM Vitals: 08/22/20 1007 Temp: 97 ??F (36.1 ??C) Weight: 198 lb 6.4 oz (90 kg) Height: 5' 3 (1.6 m) Physical Exam Constitutional: She is oriented to person, place, and time and well-developed, well-nourished, and in no distress. Vital signs are normal. No distress. HENT: Head: Normocephalic and atraumatic. Hair is normal. Right Ear: Hearing, external ear and ear canal normal. No drainage, swelling or tenderness. No foreign bodies. Tympanic membrane is not erythematous. No middle ear effusion. No decreased hearing is noted. Left Ear: Hearing, tympanic membrane, external ear and ear canal normal. No drainage, swelling or tenderness. No foreign bodies. Tympanic membrane is not erythematous. No middle ear effusion. No decreased hearing is noted. Nose: Mucosal edema and septal deviation present. No rhinorrhea. Right sinus exhibits no maxillary sinus tenderness and no frontal sinus tenderness. Left sinus exhibits no maxillary sinus tenderness and no frontal sinus tenderness. Mouth/Throat: Uvula is midline and mucous membranes are normal. She has dentures. Abnormal dentition. Posterior oropharyngeal erythema present. Crusting to bilateral nares Edentulous - dentures upper Foamy saliva to buccal mucosa and posterior pharynx Eyes: Pupils are equal, round, and reactive to light. Conjunctivae and lids are normal. Lids are everted and swept, no foreign bodies found. Neck: Trachea normal, normal range of motion and full passive range of motion without pain. Neck supple. No tracheal deviation present. No thyroid mass and no thyromegaly present. Cardiovascular: Normal rate. Pulmonary/Chest: Effort normal. No stridor. Abdominal: Normal appearance. Lymphadenopathy: She has no cervical adenopathy. Neurological: She is alert and oriented to person, place, and time. She has intact cranial nerves. Skin: Skin is warm, dry and intact. Psychiatric: Mood, affect and judgment normal. Nursing note and vitals reviewed. LABS AND OTHER DIAGNOSTIC TESTS WBC Date Value Ref Range Status 06/06/2020 7.4 3.5 - 10.5 10??3/uL Final Hemoglobin Date Value Ref Range Status 06/06/2020 14.6 12.0 - 15.5 g/dL Final Hematocrit Date Value Ref Range Status 06/06/2020 44.0 35.0 - 45.0 % Final MCV Date Value Ref Range Status 06/06/2020 96.9 81.0 - 97.0 fL Final Platelet Date Value Ref Range Status 03/15/2014 159 140 - 400 Thousand/uL Final TSH Date Value Ref Range Status 01/11/2019 0.943 0.350 - 4.940 uIU/mL Final T4 Free Date Value Ref Range Status 04/18/2017 0.9 0.7 - 1.5 ng/dL Final Imaging: CT Thorasic spine without contrast completed at OSH - per report Partially imaged left-sided parotid nodules or lymph nodes, largest?? measuring up to 11 mm. (imaging not available). PET CT in 2019 showed a left sided intraparotid nodule measuring 8mm with SUV max of 2.7. ASSESSMENT Non-seasonal allergic rhinitis Continue with previous recommendations. Patient states she has been compliant. Follow up as needed Right otitis media with effusion Resolved; patient states she continues to have symptoms. Exam today showed bilateral TM and canals to be WNL. No obvious effusion. Her continued symptoms likely related to her TMJ. Again discussed management of TMJ. Parotid nodule Left sided parotid nodule - previously noted [...] further discuss FNA if indicated vs re-imaging PLAN/RECOMMENDATIONS Follow up in the office as needed VIRGINIA Cruz I will report my findings and discuss my plan of care with my signing provider Dr. Tijerina EL POST CLERK * Janet Hale - 08/22/2020 10:13 AM CST Review of Systems Lakeisha reports the following:Ears: feel like she is under water muffled sound, inner ear is red,and painful EL POST CLERK documented in this encounter Plan of Treatment Not on file documented as of this encounter Visit Diagnoses Diagnosis Non-seasonal allergic rhinitis, unspecified trigger- Primary Right otitis media with effusion Nonsuppurative otitis media, not specified as acute or chronic Parotid nodule Other specified diseases of the salivary glands * Assessment & Plan Note - Nia Augustin APRN-CNP - 08/22/2020 10:47 AM PARCEL POST CLERK Associated Problem(s): Parotid nodule Left sided parotid nodule - previously noted [...] further discuss FNA if indicated vs re-imaging EL POST CLERK * Assessment & Plan Note - Nia Augustin APRN-CNP - 08/22/2020 10:46 AM PARCEL POST CLERK Associated Problem(s): Right otitis media with effusion (Deleted) Resolved; patient states she continues to have symptoms. Exam today showed bilateral TM and canals to be WNL. No obvious effusion. Her continued symptoms likely related to her TMJ. Again discussed management of TMJ. EL POST CLERK * Assessment & Plan Note - Nia Augustin APRN-CNP - 08/22/2020 10:45 AM PARCEL POST CLERK Associated Problem(s): Non-seasonal allergic rhinitis Continue with previous recommendations. Patient states she has been compliant. Follow up as needed EL POST CLERK documented in this encounter Care Teams Heel Cover Splitter Relationship Specialty Start Date End Date Blake Lindsey MD [address] [place] [id number] PCP - General 05/20/16 documented as of this encounter
--- OUTSIDE RECORDS SUMMARY | 2024-07-29 17:22 | XMS_ITS | Encounter Summary ---
Author Organization [facility] Health Address [address] [place] [address] Care Team Providers Care Glazier Artist Name Role Phone Blake Lindsey MD Primary Care Provider [phone] Encounter Details Date Type Department Care Team (Late st Contact Info) Description 10/23/2018 Orders Only [facility] [address] Reba Du RN Hodgkin lymphoma, unspecified Hodgkin [...] documented as of this encounter Results * [facility] BLOOD (11/17/2018 1:34 PM CDT) [facility] Total 193 125 - 243 Units/L 11/17/2018 2:20 PM [facility] Blood BLOOD SPECIMEN / Unknown Lab Venipuncture / Unknown 11/17/2018 1:34 PM CDT 11/17/2018 1:43 PM CDT Castillo Max MD LAB - CHEMISTRY OR DERABLES Performing Organization Address City/State/[facility] Co de Phone Number [facility] [address] [phone] * COMPREHENSIVE METABOLIC PANEL (11/17/2018 1:34 PM CDT) BUN 13 7 - 26 mg/dL 11/17/2018 2:20 PM [facility] Creatinine 0.8 0.6 - 1.2 mg/dL 11/17/2018 2:20 PM [facility] Sodium 141 136 - 145 mmol/L 11/17/2018 2:20 PM [facility] Potassium 3.7 3.5 - 4.5 mmol/L 11/17/2018 2:20 PM [facility] Chloride 104 98 - 107 mmol/L 11/17/2018 2:20 PM [facility] CO2 28 22 - 29 mmol/L 11/17/2018 2:20 PM [facility] Glucose 102 70 - 115 mg/dL 11/17/2018 2:20 PM [facility] Calcium 10.1 8.4 - 10.2 mg/dL 11/17/2018 2:20 PM [facility] Protein Total 7.2 6.0 - 8.3 g/dL 11/17/2018 2:20 PM [facility] Albumin 3.9 3.4 - 5.0 g/dL 11/17/2018 2:20 PM [facility] Bilirubin Total 0.4 0.2 - 1.2 mg/dL 11/17/2018 2:20 PM [facility] Alkaline Phosphatase 93 40 - 150 Units/L 11/17/2018 2:20 PM [facility] ALT 54 0 - 55 Units/L 11/17/2018 2:20 PM [facility] AST 28 5 - 34 Units/L 11/17/2018 2:20 PM [facility] Anion Gap 13 8 - 18 11/17/2018 2:20 PM [facility] BUN/Creatinine Ratio 16 7 - 23 11/17/2018 2:20 PM [facility] Osmolality Calculated 292 270 - 300 mOsm/kg 11/17/2018 2:20 PM [facility] Albumin/Globulin Ratio 1.2 1.1 - 2.3 11/17/2018 2:20 PM [facility] eGFR >60 >60 mL/min/1.7 3 m2 11/17/2018 2:20 PM [facility] Blood BLOOD SPECIMEN / Unknown Lab Venipuncture / Unknown 11/17/2018 1:34 PM CDT 11/17/2018 1:43 PM CDT Castillo Max MD LAB - CHEMISTRY OR DERABLES Performing Organization Address City/State/[facility] Co de Phone Number [facility] [address] [place] [address] * (ABNORMAL) CBC WITH DIFFERENTIAL (11/17/2018 1:34 PM CDT) WBC 11.3(H) 3.5 - 10.5 10? 3 /uL 11/17/2018 1:37 PM [facility] RBC 4.62 3.90 - 5.00 10? 6 /uL 11/17/2018 1:37 PM [facility] Hemoglobin 15.3 12.0 - 15.5 g/dL 11/17/2018 1:37 PM [facility] Hematocrit 44.5 35.0 - 45.0 % 11/17/2018 1:37 PM [facility] MCV 96.3 81.0 - 97.0 fL 11/17/2018 1:37 PM [facility] MCH 33.1 28.0 - 34.0 pg 11/17/2018 1:37 PM [facility] MCHC 34.4 32.0 - 36.0 g/dL 11/17/2018 1:37 PM [facility] Platelet Count 208 150 - 400 10? 3 /uL 11/17/2018 1:37 PM [facility] RDW-SD 46.4 36.0 - 50.0 fL 11/17/2018 1:37 PM [facility] RDW-CV 13.2 11.2 - 14.8 % 11/17/2018 1:37 PM [facility] MPV 8.3(L) 9.3 - 12.8 fL 11/17/2018 1:37 PM [facility] nRBC Absolute 0.00 0 10? 3 /uL 11/17/2018 1:37 PM [facility] nRBC Auto 0.0 0 /100 WBC 11/17/2018 1:37 PM [facility] Neutrophils % 70.7(H) 35.0 - 70.0 % 11/17/2018 1:37 PM [facility] Lymphocytes % 20.7 19.7 - 55.1 % 11/17/2018 1:37 PM [facility] Monocytes % 6.5 3.0 - 15.0 % 11/17/2018 1:37 PM [facility] Eosinophils % 1.2 0.0 - 6.0 % 11/17/2018 1:37 PM [facility] Basophil % 0.4 0.0 - 1.5 % 11/17/2018 1:37 PM [facility] Neutrophils Absolute 8.0(H) 1.6 - 7.0 10? 3 /uL 11/17/2018 1:37 PM [facility] Lymphocyte Absolute 2.4 0.8 - 2.9 10? 3 /uL 11/17/2018 1:37 PM [facility] Monocytes Absolute 0.74(H) 0.14 - 0.66 10? 3 /uL 11/17/2018 1:37 PM [facility] Eosinophils Absolute 0.14 0.00 - 0.45 10? 3 /uL 11/17/2018 1:37 PM [facility] Basophils Absolute 0.05 0.00 - 0.06 10? 3 /uL 11/17/2018 1:37 PM [facility] Immature Granulocytes % 0.5 0.0 - 1.0 % 11/17/2018 1:37 PM [facility] Blood BLOOD SPECIMEN / Unknown Lab Venipuncture / Unknown 11/17/2018 1:34 PM CDT 11/17/2018 1:35 PM CDT Castillo Max MD LAB - HEMATOLOGY O RDERABLES [address] [phone] documented in this encounter Visit Diagnoses Diagnosis Hodgkin lymphoma, unspecified Hodgkin lymphoma type, unspecified body region (HCC)- Primary documented in this encounter Care Teams Glazier Artist Relationship Specialty Start Date End Date Blake Lindsey MD [address] [place] [address] PCP - General 05/20/16 documented as of this encounter
--- OUTSIDE RECORDS SUMMARY | 2024-07-29 17:22 | XMS_ITS | Encounter Summary ---
Author Organization [facility] Health Address [address] [place] [address] Care Team Providers Care Management Department Chair Name Role Phone Blake Lindsey MD Primary Care Provider [phone] Encounter Details Date Type Department Care Team (Late st Contact Info) Description 06/05/2019 Orders Only [facility]oped[facility] [place] [address] Steven Gill, RN Social History Tobacco Use Types Packs/Day [...] on filedocumented in this encounter Care Teams Management Department Chair Relationship Specialty Start Date End Date Blake Lindsey MD [address] [place] [address] PCP - General 05/20/16 documented as of this encounter
--- OUTSIDE RECORDS SUMMARY | 2024-07-29 17:22 | XMS_ITS | Encounter Summary ---
Author Organization [facility] Health Address [address] [facility] [place] [address] Care Team Providers Care Patient Educator Name Role Phone Blake Lindsey MD Primary Care Provider [phone] Reason for Visit * Reason Onset Date Comments Medication Issue 12/16/2018 Encounter Details Date Type Department Care Team (Late st Contact Info) Description 12/16/2018 Telephone [facility] [address] [facility] [address] [place] [address] Lay Mckeon, RECORDIST-YARD CRANE OPERATOR [address] [facility] [address] [place] [address] Medication Issue Social History Tobacco Use Types Packs/Day Years [...] on filedocumented in this encounter Care Teams Patient Educator Relationship Specialty Start Date End Date Blake Lindsey MD [address] [place] [address] PCP - General 05/20/16 documented as of this encounter
--- OUTSIDE RECORDS SUMMARY | 2024-07-29 17:22 | XMS_ITS | Encounter Summary ---
Author Organization [facility] Health Address [address] [place] [address] Care Team Providers Care Fabric Inspector Name Role Phone Blake Lindsey MD Primary Care Provider [phone] Encounter Details Date Type Department Care Team (Late st Contact Info) Description 06/06/2020 Orders Only [facility] [address] Reba Du RN Hodgkin lymphoma, unspecified Hodgkin lymphoma type, unspecified body region (HCC) ; Chronic otitis media, unspecified otitis media type Social History Tobacco Use Types Packs/Day [...] lymphoma type, unspecified body region (HCC)- Primary Chronic otitis media, unspecified otitis media type documented in this encounter Care Teams Fabric Inspector Relationship Specialty Start Date End Date Blake Lindsey MD [address] [place] [address] PCP - General 05/20/16 documented as of this encounter
--- OUTSIDE RECORDS SUMMARY | 2024-07-29 17:22 | XMS_ITS | Encounter Summary ---
Author Organization [facility] Health Address [address] [place] [address] Care Team Providers Care Bridge Teacher Name Role Phone Blake Lindsey MD Primary Care Provider [phone] Reason for Visit * Reason Comments Ear Problem Encounter Details Date Type Department Care Team (Late st Contact Info) Description 07/18/2020 10:00 AM DEPARTMENTAL SHIPPING CLERK Office Visit [facility] [address] [place] [address] Nia Augustin, SILVERWARE SUPERVISOR-SPINDLE REPAIRER [address] [place] [address] Right otitis media with effusion (Primary Dx) Social History Tobacco Use Types [...] Sign Reading Time Taken Comments Blood Pressure 129/72 07/18/2020 10:09 AM DEPARTMENTAL SHIPPING CLERK Pulse 125 07/18/2020 10:09 AM DEPARTMENTAL SHIPPING CLERK Temperature - - Respiratory Rate - - Oxygen Saturation - - Inhaled Oxygen Concentration - - Weight 91.6 kg (202 lb) 07/18/2020 10:09 AM DEPARTMENTAL SHIPPING CLERK Height 160 cm (5' 3 ) 07/18/2020 10:09 AM DEPARTMENTAL SHIPPING CLERK Body Mass Index 35.78 07/18/2020 10:09 AM DEPARTMENTAL SHIPPING CLERK documented in this encounter Functional Status [...] this encounter Patient Instructions * Patient Instructions* ElinMarky - 07/18/2020 10:13 AM DEPARTMENTAL SHIPPING CLERK Thank you for visiting [facility] Otolaryngology - Head & Neck Surgery. [...] an appointment, please call our office at [phone] Wednesday through Wednesday from 8:30 am to4:30 pm. You can also request a routine appointment through your [employer] account. ??? Prescription Refills Contact your pharmacy [...] call the medical exchangeat and ask the precipitator operator to page the ENT physician supervisor shrimp [place]. *Caller ID blocking service will need to be turned off for your call to be returned. We also specialize in Hearing Aids, Allergy testing, swallowing disorders, voice problems, cancer diagnosis, and so much more. Visit our website at [email or web address] for information about our practice and an interactive health encyclopedia. Thank you for visiting [facility] Otolaryngology - Head & Neck Surgery. [...] an appointment, please call our office at [phone] Wednesday through Wednesday from 8:00 am to4:30 pm. You can also request a routine appointment through your [employer] account. ??? Prescription Refills Contact your pharmacy [...] the medical exchange at and ask the precipitator operator to page the ENT physician supervisor shrimp [place]. *Caller ID blocking service will need to be turned off for your call to be returned. We also specialize in Hearing Aids, Allergy testing, swallowing disorders, voice problems, cancer diagnosis, and so much more. Visit our website at [email or web address] for information about our practice and an interactive health encyclopedia. Thank you for visiting [facility] Otolaryngology - Head & Neck Surgery. [...] an appointment, please call our office at [phone] Wednesday through Wednesday from 8:00 am to4:30 pm. You can also request a routine appointment through your [employer] account. ??? Prescription Refills Contact your pharmacy [...] the medical exchange at and ask the precipitator operator to page the ENT physician supervisor shrimp [place]. *Caller ID blocking service will need to be turned off for your call to be returned. We also specialize in Hearing Aids, Allergy testing, swallowing disorders, voice problems, cancer diagnosis, and so much more. Visit our website at [email or web address] for information about our practice and an interactive health encyclopedia. RTMENTAL SHIPPING CLERK documented in this encounter Progress Notes * Nia Augustin, JUWAN-SPINDLE REPAIRER - 07/18/2020 10:41 AM CST [facility] Department of Otolaryngology DATE OF VISIT: 07/18/2020 CHIEF COMPLAINT Chief Complaint Patient presents with ??? Ear Problem HPI Lakeisha Alejandra is a 49 year [...] 1 puff by mouth once daily ??? cetirizine (ZYRTEC) 10 MG tablet Take 10 mg by mouth once daily ??? fluticasone propionate (FLONASE) 50 MCG/ACT nasal spray [place] 2 sprays into each nostril once daily [...] nares ??? naproxen (NAPROSYN) 500 MG tablet Take 1 tablet by mouth 2 times daily for 14 days ??? NARCAN 4 MG/0.1ML nasal spray [place] 4 mg into each nostril as needed ??? NYSTOP [id number] UNIT/GM powder Apply 1 Dose to affected area 2 times daily ??? ondansetron (ZOFRAN) 4 MG tablet Take 4 mg by mouth as needed ??? potassium chloride ER (KLOR-CON) 20 MEQ tablet Take 1 tablet by mouth once daily ??? QUEtiapine (SEROQUEL) 100 MG tablet Take 1 tablet by mouth at bedtime Reasons: Major DepressiveDisorder ??? QUEtiapine (SEROQUEL) 50 MG tablet Take 50 mg by mouth at bedtime ??? SENEXON-S 8.6-50 MG tablet Take 1 [...] malaise/fatigue and weight loss. HENT: Positive for congestion, ear pain and sore throat. Negative for ear discharge, hearing loss, nosebleeds, sinus pain and tinnitus. Nasal crusting Aural fullness Eyes: Negative for blurred vision, photophobia, pain and redness. Respiratory: Positive for cough and sputum production. Negative for hemoptysis, shortness of breath, wheezing and stridor. Cardiovascular: [...] patient is not nervous/anxious. PHYSICAL EXAM Vitals: 07/18/20 1009 BP: 129/72 Pulse: (!) 125 Weight: 202 lb (91.6 kg) Height: 5' 3 (1.6 m) Physical Exam Constitutional: She is oriented to person, place, and time and well-developed, well-nourished, and in no distress. Vital signs are normal. No distress. HENT: Head: Normocephalic and atraumatic. Hair is normal. Right Ear: Hearing and ear canal normal. There is tenderness. No drainage or swelling. No foreign bodies. Tympanic membrane is erythematous. A middle ear effusion is present. No decreased hearing is noted. Left Ear: Hearing, tympanic membrane, external ear and ear canal normal. No drainage, swelling or tenderness. No foreign bodies. No middle ear effusion. No decreased hearing [...] oropharyngeal erythema present. Crusting to bilateral nares Rachael color fluid to the right TM; right canal erythema Edentulous - dentures upper Foamy saliva to [...] 0.9 0.7 - 1.5 ng/dL Final Imaging: None ASSESSMENT Right otitis media with effusion Patient with an acute onset of right sided ear pain and muffled hearing. She feels she is unable to pop her ear. She also has complaints of a URI - patients PCP recently prescribed oral antibioticsthat she plans to start today. Recommend patient start on nasal spray and a medrol dose pack. Educated patient on proper nasal spray administration. Also recommend she start to perform valsalva manuvers multiple times throughout the day. She should follow back up if her symptoms do not resolve withmedical management. If unilateral effusion persist flexible laryngoscopy will be performed for further evaluation. PLAN/RECOMMENDATIONS Follow up in the office as needed VIRGINIA Cruz I will report my findings and discuss my plan of care with my signing provider Dr. Tijerina RTMENTAL SHIPPING CLERK * Vinita Worthington - 07/18/2020 10:13 AM CST Review of Systems Lakeisha reports the following:Ears: ear pain, ear swelling Throat: hoarse voice RTMENTAL SHIPPING CLERK documented in this encounter Plan of Treatment Not on file documented as of this encounter Visit Diagnoses Diagnosis Right otitis media with effusion- Primary Nonsuppurative otitis media, not specified as acute or chronic * Assessment & Plan Note - Nia Augustin APRN-CNP - 07/18/2020 11:26 AM DEPARTMENTAL SHIPPING CLERK Associated Problem(s): Right otitis media with effusion (Deleted) Patient with an acute onset of right sided ear pain and muffled hearing. She feels she is unable to pop her ear. She also has complaints of a URI - patients PCP recently prescribed oral antibioticsthat she plans to start today. Recommend patient start on nasal spray and a medrol dose pack. Educated patient on proper nasal spray administration. Also recommend she start to perform valsalva manuvers multiple times throughout the day. She should follow back up if her symptoms do not resolve withmedical management. If unilateral effusion persist flexible laryngoscopy will be performed for further evaluation. RTMENTAL SHIPPING CLERK documented in this encounter Care Teams Bridge Teacher Relationship Specialty Start Date End Date Blake Lindsey MD [address] [place] [address] PCP - General 05/20/16 documented as of this encounter
--- OUTSIDE RECORDS SUMMARY | 2024-07-29 17:22 | XMS_ITS | Encounter Summary ---
Author Organization [facility] Health Address [address] [facility] [place] [address] Care Team Providers Care Golf Course Patroller Name Role Phone Blake Lindsey MD Primary Care Provider [phone] Reason for Visit * Reason Comments Ear Problem Bilateral- Right wor se Nose Problem Encounter Details Date Type Department Care Team (Late st Contact Info) Description 07/11/2020 1:00 PM NUT SORTER OPERATOR Office Visit [facility] [address] [place] [address] Nia Augustin, STRATEGY CONSULTANT-RAIL DIRECTOR [address] [place] [address] TMJ (temporomandibular joint disorder) (Primary Dx); Non-seasonal allergic rhinitis, unspecified trigger Social History Tobacco Use Types Packs/Day Years [...] Sign Reading Time Taken Comments Blood Pressure 113/80 07/11/2020 1:13 PM NUT SORTER OPERATOR Pulse 84 07/11/2020 1:13 PM NUT SORTER OPERATOR Temperature 36.1 ??C (97 ??F) 07/11/2020 1:13 PM NUT SORTER OPERATOR Respiratory Rate - - Oxygen Saturation - - Inhaled Oxygen Concentration - - Weight 91.6 kg (202 lb) 07/11/2020 1:13 PM NUT SORTER OPERATOR Height 160 cm (5' 3 ) 07/11/2020 1:13 PM NUT SORTER OPERATOR Body Mass Index 35.78 07/11/2020 1:13 PM NUT SORTER OPERATOR documented in this encounter Functional Status Functional [...] this encounter Patient Instructions * Patient Instructions* Samy Clark 07/11/2020 1:40 PM NUT SORTER OPERATOR Thank you for visiting [facility] Otolaryngology - Head & Neck Surgery. We [...] an appointment, please call our office at [phone] Wednesday through Wednesday from 8:00 am to4:30 pm. You can also request a routine appointment through your [email or web address] account. ??? Prescription Refills Contact your pharmacy [...] the medical exchange at and ask the diesel tractor operator to page the ENT physician classroom monitor. *Caller ID blocking service will need to be turned off for your call to be returned. We also specialize in Hearing Aids, Allergy testing, swallowing disorders, voice problems, cancer diagnosis, and so much more. Visit our website at [email or web address] for information about our practice and an interactive health encyclopedia. SORTER OPERATOR documented in this encounter Progress Notes * Nia Augustin, STRATEGY CONSULTANT-RAIL DIRECTOR - 07/11/2020 1:42 PM CST [facility] Department of Otolaryngology DATE OF VISIT: 07/11/2020 CHIEF COMPLAINT Chief Complaint Patient presents with ??? Ear Problem Bilateral- Right worse ??? Nose Problem HPI Lakeisha Alejandra is a 49 [...] Reasons: Disease Involving Spasms of the Bronchus ??? ANORO ELLIPTA 62.5-25 MCG/INH inhaler Inhale 1 puff by mouth once daily ??? cetirizine (ZYRTEC) 10 MG tablet Take 10 mg by mouth once daily ??? fluticasone propionate (FLONASE) 50 MCG/ACT nasal spray [place] 2 sprays into each nostril once daily ??? furosemide (LASIX) 20 MG tablet Take 1 tablet by mouth once daily Reasons: Edema ??? gabapentin (NEURONTIN) 300 MG capsule Take 300 mg by mouth 3 times daily ??? ibuprofen (MOTRIN) 600 MG tablet ??? meloxicam (MOBIC) 15 MG tablet Take 15 mg by mouth once daily ??? montelukast (SINGULAIR) 10 MG tablet Take 10 mg by mouth once daily ??? naproxen (NAPROSYN) 500 MG tablet Take 1 tablet by mouth 2 times daily for 14 days ??? NARCAN 4 MG/0.1ML nasal spray [place] 4 mg into each nostril as needed ??? NYSTOP [id number] UNIT/GM powder TREVER AA BID ??? ondansetron (ZOFRAN) 4 MG tablet Take 4 mg by mouth as needed ??? potassium chloride ER (KLOR-CON) 20 MEQ tablet Take 1 tablet by mouth once daily ??? QUEtiapine (SEROQUEL) 100 MG tablet Take 1 tablet by mouth at bedtime Reasons: Major DepressiveDisorder ??? QUEtiapine (SEROQUEL) 50 MG tablet TK 1 T PO HS ??? SENEXON-S 8.6-50 MG tablet Take 1 tablet by mouth once daily Reasons: Constipation ??? spironolactone (ALDACTONE) 25 MG tablet Take 1 tablet by mouth once daily ??? SUMAtriptan (IMITREX) 50 MG tablet Take 1 tablet by mouth once as needed for Migraine Maximum daily dose: 200mg/24 hours Reasons: Migraine Headache ??? terbinafine (LAMISIL) 250 MG tablet TK 1 T PO QD ??? traZODone (DESYREL) 50 MG tablet Take [...] HENT: Positive for congestion, ear pain and hearing loss. Negative for ear discharge, nosebleeds, sinus pain, sore throat and tinnitus. Nasal crusting Eyes: Negative for blurred vision, photophobia, pain [...] patient is not nervous/anxious. PHYSICAL EXAM Vitals: 07/11/20 1313 BP: 113/80 Pulse: 84 Temp: 97 ??F (36.1 ??C) Weight: 202 lb (91.6 kg) Height: 5' 3 (1.6 m) Physical Exam Constitutional: She is oriented to person, place, and time and well-developed, well-nourished, and in no distress. Vital signs are normal. No distress. HENT: Head: Normocephalic and atraumatic. Hair is normal. Right Ear: Hearing, tympanic membrane and ear canal normal. There is tenderness. No drainage or swelling. No foreign bodies. No middle ear effusion. No decreased hearing is noted. Left Ear: Hearing, tympanic membrane, external ear and ear canal normal. No drainage, swelling or tenderness. No foreign bodies. No middle ear effusion. No decreased hearing is noted. Nose: Mucosal edema and septal deviation present. No rhinorrhea. Mouth/Throat: Uvula is midline, oropharynx is clear and moist and mucous membranes are normal. She has dentures. Abnormal dentition. Crusting to bilateral nares Minimal non occluding cerumen Edentulous - dentures upper No Popping and clicking noted on mouth opening; no deviation noted. Tenderness with palpation to the TMJ and muscles of mastication R>L. Deviation of bite Eyes: Pupils are equal, round, and reactive [...] 0.7 - 1.5 ng/dL Final Imaging: None Audiogram: Puretone air/bone conduction testing revealed normal hearing bilaterally with excellent speech understanding in both ears. ??Immittance measures revealed a Type A tympanogram in the right ear, indicating normal middle ear function. Results for the left ear revealed a Type A tympanogram, indicating normal middle ear function in that ear ASSESSMENT TMJ (temporomandibular joint disorder) Advised patient to use heat to the area. Discussed changing chewing pattern, discussed awareness ofgrinding and clenching teeth. Discussed possible relaxation techniques. Discussed the use of naproxen or Advil for the relief of discomfort when symptoms are aggravated. Advised patient not take naproxen with any other NSAID. Provided patient with educational material regarding TMJ. No signs of an acute infection on exam today. I suspect her TMJ is contributing to her otalgia. Shewas instructed to follow up for acute symptoms for further evaluation and treatment recommendations. Non-seasonal allergic rhinitis Patient states she has a history of allergies and takes zyrtec in the evening. She previously used nasal rinses but does not anymore. Recommend patient restart daily sinus rinses, daily flonase and continue zyrtec. Educated patient on proper nasal spray administration as well as how to perform saline irrigation. Educated patient on signs/symptoms of an acute infection. She should follow up as needed. PLAN/RECOMMENDATIONS Follow up in the office as needed VIRGINIA Cruz I will report my findings and discuss my plan of care with my signing provider Dr. Tijerina SORTER OPERATOR * Samy Clark 07/11/2020 1:05 PM CST Review of Systems Lakeisha reports the following:Ears: ear pain Nose: Wakes up everyday and its dry and crusty SORTER OPERATOR documented in this encounter Plan of Treatment Not on file documented as of this encounter Visit Diagnoses Diagnosis TMJ (temporomandibular joint disorder)- Primary Temporomandibular joint disorders, unspecified Non-seasonal allergic rhinitis, unspecified trigger * Assessment & Plan Note - Nia Augustin APRN-CNP - 07/11/2020 1:56 PM NUT SORTER OPERATOR Associated Problem(s): Non-seasonal allergic rhinitis Patient states she has a history of allergies and takes zyrtec in the evening. She previously used nasal rinses but does not anymore. Recommend patient restart daily sinus rinses, daily flonase and continue zyrtec. Educated patient on proper nasal spray administration as well as how to perform saline irrigation. Educated patient on signs/symptoms of an acute infection. She should follow up as needed. SORTER OPERATOR * Assessment & Plan Note - Nia Augustin APRN-CNP - 07/11/2020 1:54 PM NUT SORTER OPERATOR Associated Problem(s): TMJ (temporomandibular joint disorder) Advised patient to use heat to the area. Discussed changing chewing pattern, discussed awareness ofgrinding and clenching teeth. Discussed possible relaxation techniques. Discussed the use of naproxen or Advil for the relief of discomfort when symptoms are aggravated. Advised patient not take naproxen with any other NSAID. Provided patient with educational material regarding TMJ. No signs of an acute infection on exam today. I suspect her TMJ is contributing to her otalgia. Shewas instructed to follow up for acute symptoms for further evaluation and treatment recommendations. SORTER OPERATOR documented in this encounter Care Teams Golf Course Patroller Relationship Specialty Start Date End Date Blake Lindsey MD [address] [place] [address] PCP - General 05/20/16 documented as of this encounter
--- OUTSIDE RECORDS SUMMARY | 2024-07-29 17:22 | XMS_ITS | Encounter Summary ---
Author Organization [facility] Health Address [address] [place] [address] Care Team Providers Care Gravel Truck Driver Name Role Phone Blake Lindsey MD Primary Care Provider [phone] Encounter Details Date Type Department Care Team (Late st Contact Info) Description 07/31/2020 Orders Only [facility] [address] [place] [address] Nia Augustin, PASTORAL ASSISTANT-ESL INSTRUCTIONAL ASSISTANT [address] [place] [address] Social History Tobacco Use Types Packs/Day Years [...] on filedocumented in this encounter Care Teams Gravel Truck Driver Relationship Specialty Start Date End Date Blake Lindsey MD [address] [place] [address] PCP - General 05/20/16 documented as of this encounter
--- OUTSIDE RECORDS SUMMARY | 2024-07-29 17:22 | XMS_ITS | Encounter Summary ---
Author Organization [facility] Health Address [address] [facility] [place] [address] Care Team Providers Care Chief Accountant Name Role Phone Blake Lindsey MD Primary Care Provider [phone] Encounter Details Date Type Department Care Team (Latest Contact Info) Description 01/25/2019 11:03 AM CDT - 01/25/2019 11:59 PM CDT Hospital Encounter [facility] [address] [facility] [facility] [place] [address] Corrina Peralta PA-C [address] [place] [address] Discharge Disposition: Home or Self Care Social [...] daily Reasons: Constipation 30 tablet 01/12/2019 07/15/2021 documented as of this encounter Plan of Treatment Not on file documented as of this encounter Procedures Procedure Name Priority Date/Time Associated Diagnosis Comments XR KNEE LEFT 4VW OR MORE Routine 01/25/2019 11:10 AM CDT Primary osteoarthritis of left knee documented in this encounter Results * XR KNEE LEFT 4VW OR MORE [...] Visit Diagnoses Diagnosis Primary osteoarthritis of left knee Primary localized osteoarthrosis, lower leg documented in this encounter Care Teams Chief Accountant Relationship Specialty Start Date End Date Blake Lindsey MD [address] [place] [address] PCP - General 05/20/16 documented as of this encounter
--- OUTSIDE RECORDS SUMMARY | 2024-07-29 17:22 | XMS_ITS | Encounter Summary ---
Author Organization [facility] Health Address [address] [facility] [place] [address] Care Team Providers Care E Commerce Developer Name Role Phone Blake Lindsey MD Primary Care Provider [phone] Reason for Visit * Reason Onset Date Comments MEDICATION REFILL 08/08/2020 Encounter Details Date Type Department Care Team (Late st Contact Info) Description 08/08/2020 Refill [facility] [address] [place] [address] Kandi Domingo RN MEDICATION REFILL Social History Tobacco Use Types Packs/Day Years [...] Telephone Encounter - Kandi Domingo RN - 08/08/2020 1:39 PM CST Refills authorized per Otolaryngology protocol 01/31/2020. E SWAGER documented in this encounter Plan of Treatment Not on file documented as of this encounter Visit Diagnoses Not on filedocumented in this encounter Care Teams E Commerce Developer Relationship Specialty Start Date End Date Blake Lindsey MD [address] [place] [address] PCP - General 05/20/16 documented as of this encounter
--- OUTSIDE RECORDS SUMMARY | 2024-07-29 17:22 | XMS_ITS | Encounter Summary ---
Author Organization [facility] Health Address [address] [facility] [place] [address] Care Team Providers Care Siderographist Name Role Phone Blake Lindsey MD Primary Care Provider [phone] Encounter Details Date Type Department Care Team (Late st Contact Info) Description 11/17/2018 Orders Only [facility] [address] Reba Du RN Chronic rhinitis Social History Tobacco Use Types Packs/Day Years [...] of this encounter Visit Diagnoses Diagnosis Chronic rhinitis- Primary documented in this encounter Care Teams Siderographist Relationship Specialty Start Date End Date Blake Lindsey MD [address] [place] [address] PCP - General 05/20/16 documented as of this encounter
--- OUTSIDE RECORDS SUMMARY | 2024-07-29 17:22 | XMS_ITS | Encounter Summary ---
Author Organization [facility] Health Address [address] [facility] [place] [address] Care Team Providers Care Track Laying Equipment Operator Name Role Phone Blake Lindsey MD Primary Care Provider [phone] Reason for Visit * Reason Onset Date Comments Medication Prior Auth Request 01/20/2018 Encounter Details Date Type Department Care Team (Late st Contact Info) Description 01/20/2018 Telephone [facility] [address] [place] [address] Noemi Yen Medication Prior Auth Request Social History Tobacco Use Types Packs/Day [...] encounter Miscellaneous Notes * Telephone Encounter - Barron Henriquez MD - 01/20/2018 4:59 PM CDT Medication is approved. * Telephone Encounter - Noemi Yen - 01/20/2018 3:14 PM CDT Prior Authorization was approved because the Symbicort is on the formulary of medication list for this patient's plan. documented in this encounter Plan of Treatment Not on file documented as of this encounter Visit Diagnoses Not on filedocumented in this encounter Care Teams Track Laying Equipment Operator Relationship Specialty Start Date End Date Blake Lindsey MD [address] [place] [address] PCP - General 05/20/16 documented as of this encounter
--- OUTSIDE RECORDS SUMMARY | 2024-07-29 17:22 | XMS_ITS | Encounter Summary ---
Author Organization [facility] Address [address] [place] [address] Care Team Providers Care Sales Marketing Manager Name Role Phone Blake Lindsey MD Primary Care Provider Reason for Visit * Radiology Services (Routine) - Closed Specialty Diagnoses / Procedures Referred By Contac t Referred To Contact Positron Emission Tomography Diagnoses Hodgkin lymphoma of extranodal or solid organ site (HCC) Hodgkin lymphoma, unspecified Hodgkin lymphoma type, unspecified body region (HCC) Procedures PET CT WHOLE BODY Castillo Max MD [address] [place] [address] [facility] Pet Op [address] [place] [address] Referral ID Status Reason Start Date Expiration Date Visits Re quested Visits Authorized [id number] Closed 01/19/2019 07/18/2019 1 1 Encounter Details Date Type Department Care Team (Latest Contact Info) Description 02/13/2019 10:42 AM CDT - 02/13/2019 11:59 PM CDT Hospital Encounter [facility] PET [address] [place] [address] Castillo Max MD [address] [place] [address] Discharge Disposition: Home or Self Care Social [...] (HCC) documented in this encounter Results * PET [...] PM . Castillo Max MD NM ORDERABLES documented in this encounter Visit Diagnoses Not on filedocumented in this encounter Care Teams Sales Marketing Manager Relationship Specialty Start Date End Date Blake Lindsey MD [address] [place] [address] PCP - General 05/20/16 documented as of this encounter
--- OUTSIDE RECORDS SUMMARY | 2024-07-29 17:22 | XMS_ITS | Encounter Summary ---
Author Organization [facility] Address [address] [place] [address] Care Team Providers Care Geospatial Program Management Officer Name Role Phone Blake Lindsey MD Primary Care Provider [phone] Encounter Details Date Type Department Care Team (Latest Contact Info) Description 01/19/2019 3:05 PM CDT - 01/19/2019 11:59 PM CDT Hospital Encounter [facility] [address] [facility] [place] [address] Castillo Max MD [address] [place] [address] Rd [address] [place] [address] Discharge Disposition: Home or Self [...] Procedure Name Priority Date/Time Associated Diagnosis Comments PTT [facility] 01/19/2019 3:14 PM CDT Night sweats History of bruising easily PT-INR [facility] 01/19/2019 3:14 PM CDT Night sweats History of bruising easily LH [facility] 01/19/2019 3:14 PM CDT Night sweats [facility] 01/19/2019 3:14 PM CDT Night sweats ESTRADIOL [facility] 01/19/2019 3:14 PM CDT Night sweats documented in this encounter Results * PTT [facility] (01/19/2019 3:14 PM CDT) APTT 31.0 23.0 - 38.4 Seconds 01/19/2019 3:53 PM CDT [facility] Comment: * Please Note: New therapeutic range for heparin therapy. * Suggested therapeutic range for full dose I.V. heparin therapy for venous thromboembolism is 65 to 103 seconds. Blood BLOOD SPECIMEN / Unknown Lab Venipuncture / Unknown 01/19/2019 3:14 PM CDT 01/19/2019 3:22 PM CDT Castillo Max MD LAB - COAGULATION ORDERABLES Performing Organization Address [facility] de Phone Number [address] [phone] * PT-INR [facility] (01/19/2019 3:14 PM CDT) PT 12.3 12.1 - 14.8 Seconds 01/19/2019 3:52 PM CDT [facility] INR 1.0 See Comment 01/19/2019 3:52 PM CDT [facility] Comment: The suggested therapeutic range for standard coumadin (warfarin) therapy is an INR of 2.0-3.0. For high-risk patients (Mechanical Mitral Valve Prosthesis, etc.), the suggested prophylactic therapeutic range is an INR of 2.5-3.5. Blood BLOOD SPECIMEN / Unknown Lab Venipuncture / Unknown 01/19/2019 3:14 PM CDT 01/19/2019 3:22 PM CDT Castillo Max MD LAB - COAGULATION ORDERABLES Performing Organization Address [facility] de Phone Number [address] [phone] * (01/19/2019 3:14 PM CDT) LH 37.4 mIU/mL 01/21/2019 7:11 AM CDT [facility] ([facility]) Comment: ?Adult Female: ?Follicular phase ?2.4 - ??12.6 ?Ovulation phase ?14.0 - ??95.6 ?Luteal phase ?1.0 - ??11.4 ?Postmenopausal ?7.7 - ??58.5 Blood BLOOD SPECIMEN / Unknown Lab Venipuncture / Unknown 01/19/2019 3:14 PM CDT 01/19/2019 3:22 PM CDT Narrative [facility] ([facility]) - 01/21/2019 7:11 AM CDT Performed at: ??01 - [facility] [address] [place], [place] ??[id number] Pbx Wire Chief: Edison Chavez PhD, Phone: ??[phone] Castillo Max MD LAB - CHEMISTRY OR DERABLES [facility] ([facility]) [address] [place] [address] * ESTRADIOL (01/19/2019 3:14 PM CDT) Estradiol 7.2 pg/mL 01/21/2019 4:08 AM CDT [facility] ([facility]) Comment: ?Adult Female: ?Follicular phase ?? 12.5 - ?? 166.0 ?Ovulation phase ?85.8 - ?? 498.0 ?Luteal phase ? 43.8 - ?? 211.0 ?Postmenopausal ? <6.0 - ?54.7 ?1st trimester ? 215.0 - >4300.0 ?Girls (1-10 years) ?6.0 - ?27.0 Luis ECLIA methodology Blood BLOOD SPECIMEN / Unknown Lab Venipuncture / Unknown 01/19/2019 3:14 PM CDT 01/19/2019 3:22 PM CDT Narrative [facility] ([facility]) - 01/21/2019 4:08 AM CDT Performed at: ??01 - [facility] [address] [place], [place] ??[id number] Pbx Wire Chief: Edison Chavez PhD, Phone: ??[phone] Castillo Max MD LAB - CHEMISTRY OR DERABLES [facility] ([facility]) [address] [place] [address] * [facility] (01/19/2019 3:14 PM CDT) FSH 68.5 mIU/mL 01/21/2019 7:11 AM CDT [facility] ([facility]) Comment: ?Adult Female: ?Follicular phase ?3.5 - ??12.5 ?Ovulation phase ? 4.7 - ??21.5 ?Luteal phase ?1.7 - ?? 7.7 ?Postmenopausal ? 25.8 - 134.8 Blood BLOOD SPECIMEN / Unknown Lab Venipuncture / Unknown 01/19/2019 3:14 PM CDT 01/19/2019 3:22 PM CDT Narrative [facility] ([facility]) - 01/21/2019 7:11 AM CDT Performed at: ??01 - [facility] [address] [facility], [place], [place] ??[id number] Pbx Wire Chief: Edison Chavez PhD, Phone: ??[phone] Castillo Max MD LAB - CHEMISTRY OR DERABLES [facility] ([facility]) [address] [place] [address] documented in this encounter Visit Diagnoses Diagnosis Night sweats Generalized hyperhidrosis History of bruising easily documented in this encounter Care Teams Geospatial Program Management Officer Relationship Specialty Start Date End Date Blake Lindsey MD [address] [place] [address] PCP - General 05/20/16 documented as of this encounter
--- OUTSIDE RECORDS SUMMARY | 2024-07-29 17:22 | XMS_ITS | Encounter Summary ---
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 mg documented in this encounter Active and Recently Administered Medications Times are shown in ASSEMBLER PRODUCT. Scheduled Medication Order 09/09/2020 09/10/2020 09/11/2020 iopamidol (ISOVUE 370) 76 % contrast Intravenous, CONTRAST ONCE, Starting on Wed09/11/20 at 1356, Until Wed09/11/20 at 1602 1358 ($ Given - Cont rast - Provider: Faith Teixeira, RT(R)CT) morphine injection 4 mg (COMPLETED) 4 mg, Intravenous, NOW, 1 dose, On Wed09/11/20 at 1245 1237 ($ Given - Prov ider: Robina Rosenthal RN) ondansetron (ZOFRAN) injection 4 mg (COMPLETED) 4 mg, Intravenous, NOW, 1 dose, On Wed09/11/20 at 1245, Administer over 2 to 5 minutes. 1237 ($ Given - Prov ider: Robina Rosenthal RN) documented in this encounter Care Teams Ink Grinder Relationship Specialty Start Date End Date Blake Lindsey MD [address] [place] [address] PCP - General 05/20/16 documented as of this encounter
--- OUTSIDE RECORDS SUMMARY | 2024-07-29 17:22 | XMS_ITS | Encounter Summary ---
Author Organization [facility] Health Address [address] [address] Care Team Providers Care Web Art Director Name Role Phone Blake Lindsey MD Primary Care Provider [phone] Reason for Visit * Reason Onset Date Comments Returned Call 09/26/2020 Encounter Details Date Type Department Care Team (Late st Contact Info) Description 09/26/2020 Telephone [facility] [address] [place] [id number] Nia Augustin, EXHIBITION CARVER-CRAYON SAWYER [address] [place] [address] Returned Call Social History Tobacco Use Types [...] encounter Miscellaneous Notes * Telephone Encounter - Nia Augustin APRN-CNP - 09/26/2020 10:53 AM POURING CRANE OPERATOR Patient with recurrent symptoms. Will send in an antibiotic to treat her symptoms. Also discussed continuing her nasal spray and sinus rinses. Because of patients ongoing symptoms and findings of a parotid nodule imaging will be ordered and scheduled for further evaluation. Patient to follow up after imaging. ING CRANE OPERATOR documented in this encounter Plan of Treatment Not on file documented as of this encounter Visit Diagnoses Not on filedocumented in this encounter Care Teams Web Art Director Relationship Specialty Start Date End Date Blake Lindsey MD [address] [place] [address] PCP - General 05/20/16 documented as of this encounter
--- OUTSIDE RECORDS SUMMARY | 2024-07-29 17:22 | XMS_ITS | Encounter Summary ---
Author Organization [facility] Health Address [address] [facility] [place] [address] Care Team Providers Care Die Finisher Name Role Phone Blake Lindsey MD Primary Care Provider [phone] Reason for Visit * Reason Comments Establish Care Breast Reduction Encounter Details Date Type Department Care Team (Late st Contact Info) Description 04/10/2019 9:30 AM CDT Office Visit [facility] [address] [place] [address] Charlie Wade MD [address] [place] [address] Chronic midline back pain, unspecified back location (Primary Dx) Social History Tobacco Use Types [...] Sign Reading Time Taken Comments Blood Pressure 118/84 04/10/2019 9:33 AM CDT Pulse 84 04/10/2019 9:33 AM CDT Temperature 36.4 ??C (97.5 ??F) 04/10/2019 9:33 AM CD T Respiratory Rate - - Oxygen Saturation 95% 04/10/2019 9:33 AM CDT Inhaled Oxygen Concentration - - Weight 95.3 kg (210 lb) 04/10/2019 9:33 AM CDT Height 161.3 cm (5' 3.5 ) 04/10/2019 9:33 AM CDT Body Mass Index 36.62 04/10/2019 9:33 AM CDT documented in this encounter Functional [...] as of this encounter Progress Notes * Charlie Wade MD - 04/10/2019 10:41 AM CDT Attending Physician Supervisory Note I personally interviewed and examined the patient and agree with the doctor above. She presents forconsultation regarding bilateral breast reduction. She has a complex history of back issues starting with bony destruction from Lymphoma and spinal fusion. She has had chronic back pain since then that has been stable. She also notes shoulder pain and tightness that she attributes to her large breasts. She has rahses under her breasts with occasional ulceration and yeast infections. She has not been hospitalized for the infections. She does not wear a bra as it worsens her back pain from pressure along her thoracic spine. She has been working on weight loss, but has been unsuccessful at losing weight. On exam, the patient is in no acute distress. She is overweight. She has bilateral large breasts with grade III ptosis. There are rashes under the breasts and on the upper abdomen. I discussed the risks, benefits, possible complications and alternatives with them. I explained that the risks include infection, bleeding, scarring, delayed healing, fluid collections, delayed healing, loss of flaps, loss of nipples, changes in nipple sensation, asymmetry, and possible need for additional procedures. I would anticipate removing ~200- 300 grams of breast tissue bilaterally. Before considering surgery, I would like her to see physical therapy. She would also benefit from a good bra fitting. I would like to see her BMI below 35 and she will need to quit smoking THC. I will see her back in2 months. I spent 45 total minutes with the patient, of which 30 minutes were spent in counseling the patient regarding breast reduction surgery. Charlie Wade MD .time documented in this encounter H&P Notes * Nica Alberto MD - 04/10/2019 9:34 AM CDT Plastic Surgery Breast H&P 04/10/2019 9:34 AM HPI 48 year old female with a complex past medical history including hodgkins lymphoma (in remission since 2012), COPD, Asthma, Migraine AREVALO, and chronic back pain secondary to the lymphoma necessitating numerous spine surgeries resulting in fusion from C3-T12.. She is here today for evaluation for breast reduction. She currently is unable to wear a bra secondary to discomfort secondary to her spine surgeries, her last known bra size was 36D. In addition to her stable chronic back pain, she reports bilateral shoulder and neck pain which she attributes to her large breast. She also has recurrent yeast infections in the IMF region secondary to the moisture and inability to wear a bra, she uses nystatin powder to treat and prevent these infections. Additionally, she reports recurrent pimples/boils that drain brown fluid when the pop in the IMF region.Her weight has been relatively stable over the last few years. The patient has no personal or family history of breast cancer. Breast pain: - Shoulder grooving: - Cervical back pain: + Thoracic back pain: + Skin rashes: + She has tried physical therapy in the past for these symptoms. She is not using pain medication for these symptoms. She does not plan to have future children. 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 History of keloid or hypertrophic scar: - Personal history of breast cancer: - Family history of breast cancer: - Most recent mammogram: October 2018 Smoking: - Diabetes: - PMH Past Medical History: Diagnosis Date ??? Asthma ??? COPD (chronic obstructive pulmonary disease) ??? High cholesterol ??? Hodgkins lymphoma ??? Migraine PSH Past Surgical History: Procedure Laterality Date ??? Back Surgery ??? BIOPSY ??? HX SPINAL FUSION ??? MD FEMUR/KNEE SURG UNLISTED both knees ??? LUTHER TOOTH EXTRACTION ALLERGY Allergies Allergen Reactions ??? Amoxicillin Rash ??? Penicillins Rash ??? Codeine Other Passes out, Passes out ??? Epinephrine Other When injected in mouth for dental procedures, makes extremities go numb SOCIAL Social History Tobacco Use ??? Smoking status: Former Smoker Packs/day: 1.00 Last attempt to quit: 11/30/1997 Years since quittin.3 ??? Smokeless tobacco: Never Used Substance Use Topics ??? Alcohol use: Yes Alcohol/week: 0.8 standard drinks Comment: once a week ??? Drug use: Yes Types: Marijuana MEDS Current Outpatient Medications on File Prior to Visit Medication Sig Dispense Refill ??? albuterol (PROVENTIL;VENTOLIN) (2.5 MG/3ML) 0.083% nebulizer solution INHALE 3 ML BY NEBULIZATION 3 TIMES DAILY Reasons: Disease Involving Spasms of the Bronchus 1 vial 0 ??? atorvastatin (LIPITOR) 10 MG tablet Take 1 tablet by mouth at bedtime Reasons: High Amount of Fats in the Blood 30 tablet 0 ??? furosemide (LASIX) 20 MG tablet Take 1 tablet by mouth once daily Reasons: Edema 30 tablet 0 ??? ibuprofen (MOTRIN) 600 MG tablet ??? lamoTRIgine (LAMICTAL) 100 MG tablet TK 1 T PO QD 0 ??? NYSTOP 526837 UNIT/GM powder TREVER AA BID 1 ??? QUEtiapine (SEROQUEL) 100 MG tablet Take [...] 0 ??? terbinafine (LAMISIL) 250 MG tablet TK 1 T PO QD 2 No current facility-administered medications on file prior to visit. ROS, only positive if Bolded Review of Systems: Constitutional: weight loss, fatigue, weakness, fever, chills, night sweats Neurological: headaches, paresthesias, tremors, syncope, seizures HEENT: headache, visual changes, hearing loss, ear/throat pain, epistaxis Cardiovascular: chest pain, exertional dyspnea, hypertension Respiratory: shortness of breath, cough, wheeze, sputum Gastrointestinal: pain, nausea/vomiting, hematemesis, hematochezia Hematologic: anemia, petechiae MSK: joint pain, weakness, decreased ROM Endocrine: hypothyroidism, hyperthyroidism, diabetes Physical Exam General: No acute distress Neuro: CN II-XII intact, no focal deficits CV: regular rate Respiratory: non-labored Abdomen: soft, no tenderness to palpation Extremities: Moves all extremities spontaneously, warm and well perfused Breast: pendulous breasts with grade 3 ptosis bilaterally. No surgical scars, nipple retractions, lumps/bumps. Some mild irritation without signs of infection in bilateral IMF. Fairly symmetric in size bilaterally, non-fibrous or dense breast tissue appreciated. IMAGING Mammogram: IMPRESSION: No mammographic or sonographic evidence of malignancy. ?? BI-RADS category 1, negative mammogram. ?? RECOMMENDATION: Routine annual screening mammograms are recommended. ASSESSMENT & PLAN Ms. Alejandra is a 48 yo female with symptomatic macromastia, who was seen today for evaluation of bilateral breast reduction. She has a complex history, with chronic back pain and lymphoma. ?? Her condition was discussed at length, including the complexity of her case given past medical history. ?? Recommendations include: ?? Obtain professional fitted bras - recommended going to [facility] ?? Referral placed for PT for evaluation and treatment of bilateral shoulder, neck and back pain. ?? Recommend approximately 20 pounds of weight loss to achieve a BMI of 35 or less. ?? Continue with nystatin powder. ?? Follow up with Dr. Wade in 2 months. Please call to obtain/secure appointment and follow up. Nica Alberto MD Plastic Surgery Resident, PGY-1 Pager: [phone] 04/10/2019 12:33 PM Nights (5pm-7am) and weekends, please call [phone] and ask the rotary lithographic press operator to page the plastic surgery resident correspondence school teacher. documented in this encounter Plan of Treatment Not on file documented as of this encounter Visit Diagnoses Diagnosis Chronic midline back pain, unspecified back location- Primary documented in this encounter Care Teams Die Finisher Relationship Specialty Start Date End Date Blake Lindsey MD [address] [place] [address] PCP - General 05/20/16 documented as of this encounter
--- OUTSIDE RECORDS SUMMARY | 2024-07-29 17:22 | XMS_ITS | Encounter Summary ---
Author Organization [facility] Health Address [address] [facility] [place] [address] Care Team Providers Care Senior Director Creative Services Name Role Phone Blake Lindsey MD Primary Care Provider [phone] Encounter Details Date Type Department Care Team (Late st Contact Info) Description 07/11/2020 12:30 PM BIOLOGICAL SCIENCE AIDE Testing Visit [facility] [address] [facility], [place] [phone] Lowe Leann, AuD [address] [facility] [address] [place] [address] Otalgia of both ears Social History Tobacco Use Types Packs/Day Years [...] Associated Diagnosis Comments AUDIOLOGY/TYMPANOME TRY ORDER Routine 07/11/2020 12:37 PM BIOLOGICAL SCIENCE AIDE documented in this encounter Results * AUDIOLOGY/TYMPANOMETRY ORDER (07/11/2020 12:37 PM BIOLOGICAL SCIENCE AIDE) Narrative Leann Cross AuD - 07/11/2020 12:52 PM BIOLOGICAL SCIENCE AIDE History: Lakeisha Alejandra is a 49 year [...] change in hearing is suspected. Andrea Galeano. [facility]-A Clinical Color Drum Worker [facility]-Department of Otolaryngology/Audiology [facility] [address] [place] [address] ([facility]) [place] [address] Leann Mendez AUDIOLOGY SERVICES O RDERABLES documented in this encounter Visit Diagnoses Diagnosis Otalgia of both ears- Primary Otalgia, unspecified documented in this encounter Care Teams Senior Director Creative Services Relationship Specialty Start Date End Date Blake Lindsey MD [address] [place] [address] PCP - General 05/20/16 documented as of this encounter
--- OUTSIDE RECORDS SUMMARY | 2024-07-29 17:22 | XMS_ITS | Encounter Summary ---
Author Organization [facility] Health Address [address] [facility] [place] [address] Care Team Providers Care Maintenance Planning Clerk Name Role Phone Blake Lindsey MD Primary Care Provider [phone] Encounter Details Date Type Department Care Team (Latest Contact Info) Description 06/06/2020 1:43 PM ASSISTANT FRONT END MANAGER - 06/06/2020 11:59 PM [facility] Hospital Encounter [facility] [address] [facility] [place] [address] Castillo Max MD [address] [place] [address] Rd [address] [place], [place] [id number] Discharge Disposition: Home or Self Care Social [...] Spasms of the Bronchus 1 vial 01/12/2019 cetirizine (ZYRTEC) 10 MG tablet Take 1 (one) tablet by mouth once daily as needed 04/17/2020 furosemide (LASIX) 20 MG tabletIndications:Bernardo ma Take 1 tablet by mouth once daily Reasons: Edema 30 tablet 01/12/2019 gabapentin (NEURONTIN) 300 MG capsule Take 1 (one) capsule by mouth 3 times daily 06/04/2020 NYSTOP [id number] UNIT/GM powder Apply 1 Dose to affected area as directed 1 03/06/2019 ondansetron (ZOFRAN) 4 MG tablet Take 1 [...] hours Reasons: Migraine Headache 30 tablet 01/12/2019 ANORO ELLIPTA 62.5-25 MCG/INH inhaler Inhale 1 puff by mouth once daily 2 04/04/2019 03/18/2021 ibuprofen (MOTRIN) 600 MG tablet Take 600 mg by mouth 3 times daily 01/06/2019 09/11/2020 QUEtiapine (SEROQUEL) 50 MG tablet Take 50 mg by mouth at bedtime 0 01/04/2019 07/15/2021 SENEXON-S 8.6-50 MG tabletIndications:Con stipation Take 1 tablet by mouth once daily Reasons: Constipation 30 tablet 01/12/2019 07/15/2021 SENNA-PLUS 8.6-50 MG tablet Take 1 tablet by mouth 2 times daily 03/01/2020 07/11/2020 terbinafine (LAMISIL) 250 MG tablet Take 250 mg by mouth once daily 2 01/30/2019 07/15/2021 traZODone (DESYREL) 50 MG tablet 03/30/2020 08/22/2020 documented as of this encounter Plan of Treatment Not on file documented as of this encounter Procedures Procedure Name Priority Date/Time Associated Diagnosis Comments CBC W AUTO DIFFERENTIAL [facility] 06/06/2020 1:48 PM ASSISTANT FRONT END MANAGER Hodgkin lymphoma, unspecified Hodgkin lymphoma type, unspecified body region (HCC) COMPREHENSIVE METABOLIC PANEL [facility] 06/06/2020 1:48 PM ASSISTANT FRONT END MANAGER Hodgkin lymphoma, unspecified Hodgkin lymphoma type, unspecified body region (HCC) documented in this encounter Results * (ABNORMAL) COMPREHENSIVE METABOLIC PANEL (06/06/2020 1:48 PM ASSISTANT FRONT END MANAGER) BUN 11 7 - 26 mg/dL 06/06/2020 2:30 PM [facility] Creatinine 0.7 0.6 - 1.2 mg/dL 06/06/2020 2:30 PM [facility] Sodium 141 136 - 145 mmol/L 06/06/2020 2:30 PM [facility] Potassium 4.1 3.5 - 4.5 mmol/L 06/06/2020 2:30 PM [facility] Chloride 108(H) 98 - 107 mmol/L 06/06/2020 2:30 PM [facility] CO2 22 22 - 29 mmol/L 06/06/2020 2:30 PM [facility] Glucose 128(H) 70 - 115 mg/dL 06/06/2020 2:30 PM ASSISTANT FRONT END MANAGER [facility] Calcium 9.8 8.4 - 10.2 mg/dL 06/06/2020 2:[address] [facility] Protein Total 7.4 6.0 - 8.3 g/dL 06/06/2020 2:[address] [facility] Albumin 4.0 3.4 - 5.0 g/dL 06/06/2020 2:[address] [facility] Bilirubin Total 0.4 0.2 - 1.2 mg/dL 06/06/2020 2:[address] [facility] Alkaline Phosphatase 95 40 - 150 Units/L 06/06/2020 2:[address] [facility] ALT 14 0 - 55 Units/L 06/06/2020 2:[address] [facility] AST 14 5 - 34 Units/L 06/06/2020 2:[address] [facility] Anion Gap 15 8 - 18 06/06/2020 2:[address] [facility] BUN/Creatinine Ratio 16 7 - 23 06/06/2020 2:[address] [facility] Osmolality Calculated 293 270 - 300 mOsm/kg 06/06/2020 2:[address] [facility] Albumin/Globulin Ratio 1.2 1.1 - 2.3 06/06/2020 2:[address] [facility] eGFR >60 >60 mL/min/1.7 3 m2 06/06/2020 2:[address] [facility] Blood BLOOD SPECIMEN / Unknown Lab Venipuncture / Unknown 06/06/2020 1:48 PM ASSISTANT FRONT END MANAGER 06/06/2020 2:01 PM [facility] Castillo Max MD LAB - CHEMISTRY OR DERABLES [facility] [address] [place] [address], [facility] [phone] * (ABNORMAL) CBC WITH DIFFERENTIAL (06/06/2020 1:48 PM ASSISTANT FRONT END MANAGER) WBC 7.4 3.5 - 10.5 10? 3 /uL 06/06/2020 2:[address] [facility] RBC 4.54 3.90 - 5.00 10? 6 /uL 06/06/2020 2:[address] [facility] Hemoglobin 14.6 12.0 - 15.5 g/dL 06/06/2020 2:[address] [facility] Hematocrit 44.0 35.0 - 45.0 % 06/06/2020 2:[address] [facility] MCV 96.9 81.0 - 97.0 fL 06/06/2020 2:[address] [facility] MCH 32.2 28.0 - 34.0 pg 06/06/2020 2:[address] [facility] MCHC 33.2 32.0 - 36.0 g/dL 06/06/2020 2:[address] [facility] Platelet Count 165 150 - 400 10? 3 /uL 06/06/2020 2:[address] [facility] RDW-SD 45.5 36.0 - 50.0 fL 06/06/2020 2:[address] [facility] RDW-CV 12.8 11.2 - 14.8 % 06/06/2020 2:[address] [facility] MPV 8.9(L) 9.3 - 12.8 fL 06/06/2020 2:[address] [facility] nRBC Absolute 0.00 0 10? 3 /uL 06/06/2020 2:[address] [facility] nRBC Auto 0.0 0 /100 WBC 06/06/2020 2:[address] [facility] Neutrophils % 72.0(H) 35.0 - 70.0 % 06/06/2020 2:[address] [facility] Lymphocytes % 21.0 19.7 - 55.1 % 06/06/2020 2:[address] [facility] Monocytes % 3.8 3.0 - 15.0 % 06/06/2020 2:[address] [facility] Eosinophils % 2.8 0.0 - 6.0 % 06/06/2020 2:[address] [facility] Basophil % 0.3 0.0 - 1.5 % 06/06/2020 2:[address] [facility] Neutrophils Absolute 5.4 1.6 - 7.0 10? 3 /uL 06/06/2020 2:[address] [facility] Lymphocyte Absolute 1.6 0.8 - 2.9 10? 3 /uL 06/06/2020 2:[address] [facility] Monocytes Absolute 0.28 0.14 - 0.66 10? 3 /uL 06/06/2020 2:08 PM ASSISTANT FRONT END MANAGER [facility] Eosinophils Absolute 0.21 0.00 - 0.45 10? 3 /uL 06/06/2020 2:[address] [facility] Basophils Absolute 0.02 0.00 - 0.06 10? 3 /uL 06/06/2020 2:[address] [facility] Immature Granulocytes % 0.1 0.0 - 1.0 % 06/06/2020 2:[address] [facility] Blood BLOOD SPECIMEN / Unknown Lab Venipuncture / Unknown 06/06/2020 1:48 PM ASSISTANT FRONT END MANAGER 06/06/2020 2:01 PM ASSISTANT FRONT END MANAGER Castillo Max MD LAB - HEMATOLOGY O RDERABLES [facility] [address] [place] [address] [phone] documented in this encounter Visit Diagnoses Diagnosis Hodgkin lymphoma, unspecified Hodgkin lymphoma type, unspecified body region (HCC) documented in this encounter Care Teams Maintenance Planning Clerk Relationship Specialty Start Date End Date Blake Lindsey MD [address] [place] [address] PCP - General 05/20/16 documented as of this encounter
--- OUTSIDE RECORDS SUMMARY | 2024-07-29 17:22 | XMS_ITS | Encounter Summary ---
Author Organization [facility] Health Address [address] [facility] [place] [address] Care Team Providers Care Extractive Metallurgist Name Role Phone Blake Lindsey MD Primary Care Provider [phone] Encounter Details Date Type Department Care Team (Late st Contact Info) Description 08/05/2020 Orders Only [facility] [address] [place] [address] Nia Augustin, SLAB LIFTING ENGINEER-TEMPORARY HELP AGENCY REFERRAL CLERK [address] [place] [address] Social History Tobacco Use Types Packs/Day Years [...] on filedocumented in this encounter Care Teams Extractive Metallurgist Relationship Specialty Start Date End Date Blake Lindsey MD [address] [place] [address] PCP - General 05/20/16 documented as of this encounter
--- OUTSIDE RECORDS SUMMARY | 2024-07-29 17:23 | XMS_ITS | Encounter Summary ---
Author Organization [facility] Health Address [address] [place] [address] Care Team Providers Care Flying Shear Operator Name Role Phone Blake Lindsey MD Primary Care Provider [phone] Encounter Details Date Type Department Care Team (Latest Contact Info) Description 02/19/2015 Hospital Outpatient Visit [facility] [address] [place] [id number] Discharge Disposition: Home or Self Care Social History Tobacco Use Types Packs/Day Years Used Date Smoking Tobacco: Never Assessed Sex and Gender Information Value Date Recorded Sex Assigned at Female 05/06/2024 9:07 AM CDT Gender Identity Female 05/06/2024 9:07 AM CDT Sexual Orientation Straight 05/06/2024 9: 07 AM CDT documented as of this encounter Plan of Treatment Not on file documented as of this encounter Procedures Procedure Name Priority Date/Time Associated Diagnosis Comments XR CHEST 2VW Routine 02/19/2015 10:27 AM CDT documented in this encounter Results * XR CHEST 2VW (02/19/2015 10:27 AM CDT) Anatomical Region Laterality Modality Chest Other Impressions 02/20/2015 8:45 AM CDT Impression: Mild opacity in the right middle lobe which may represent atelectasis or pneumonia. Dictated by Harjinder Leon M.D. (Operations Developer) This report was approved ??by Harjinder Leon ?? on 02/20/2015 8:[address] EMIL Muller MD have personally reviewed and interpreted this examination/study. This report was electronically signed by EMIL MALONE MD ??on 02/20/2015 8:45 AM . Narrative 02/20/2015 8:45 AM CDT EXAMINATION: XR CHEST PA AND LATERAL DATE: 02/19/2015 10:27 AM HISTORY: Pre-Op Testing COMPARISON: Comparison is made with a study from February 21, 2014. Findings: There is opacity in the right middle lobe which may represent atelectasis or pneumonia. No pleural effusion or pneumothorax is identified. The left lung is clear. The cardiomediastinal silhouette is normal. Spinal fusion hardware is partially imaged. Procedure Note Emil Malone MD - 10/30/2017 EXAMINATION: XR CHEST PA AND LATERAL DATE: 02/19/2015 10:27 AM HISTORY: Pre-Op Testing COMPARISON: Comparison is made with a study from February 21, 2014. Findings: There is opacity in the right middle lobe which may represent atelectasisor pneumonia. No pleural effusion or pneumothorax is identified. The leftlung is clear. The cardiomediastinal silhouette is normal. Spinal fusionhardware is partially imaged. IMPRESSION Impression: Mild opacity in the right middle lobe which may represent atelectasis orpneumonia. Dictated by Harjinder Leon M.D. (Operations Developer) This report was approved by Harjinder Leon on 02/20/2015 8:[address] EMIL Muller MD have personally reviewed and interpreted thisexamination/study. This report was electronically signed by EMIL MALONE MD on 02/20/20158:45 AM . Reji Virk MD DIAGNOSTIC IMAGING O RDERABLES documented in this encounter Visit Diagnoses Diagnosis Other mechanical complication of other internal orthopedic device, implant, and graft (HCC) Other mechanical complication of other internal orthopedic device, implant, and graft Arthrodesis status documented in this encounter Care Teams Flying Shear Operator Relationship Specialty Start Date End Date Blake Lindsey MD [address] [place] [address] PCP - General 05/20/16 documented as of this encounter
--- OUTSIDE RECORDS SUMMARY | 2024-07-29 17:23 | XMS_ITS | Encounter Summary ---
Author Organization [facility] Health Address [address] [place] [address] Care Team Providers Care Regulatory Auditor Name Role Phone Blake Lindsey MD Primary Care Provider [phone] Encounter Details Date Type Department Care Team (Latest Contact Info) Description 09/09/2016 Hospital Outpatient Visit [facility] - Orthopedics [address] [place] [phone] Discharge Disposition: Home or Self Care [...] Priority Date/Time Associated Diagnosis Comments XR KNEE RIGHT 4VW OR MORE Routine 09/09/2016 10:34 AM PRIME BROKER XR KNEE LEFT 4VW OR MORE Routine 09/09/2016 10:34 AM PRIME BROKER documented in this encounter Results * XR KNEE RIGHT 4VW OR MORE (09/09/2016 10:34 AM PRIME BROKER) Anatomical Region Laterality Modality Lower Extremity Other Impressions 09/09/2016 12:01 PM PRIME BROKER Impression: Mild osteoarthritis of both knees. This report was electronically signed by ALICIA GREEN M.D. ??on 09/09/2016 12:01 PM . Narrative 09/09/2016 12:01 PM PRIME BROKER Examination: 1. Left knee minimum 4 views [...] mild tricompartmental left knee osteoarthritis. Procedure Note Alicia Green MD - 10/29/2017 Examination: 1. Left [...] knees. This report was electronically signed by ALICIA GREEN M.D. on 09/09/201612:01 PM . Sun Mike PA-C DIAGNOSTIC IMAGING O RDERABLES * XR KNEE LEFT 4VW OR MORE (09/09/2016 10:34 AM PRIME BROKER) Anatomical Region Laterality Modality Lower Extremity Other Impressions 09/09/2016 12:01 PM PRIME BROKER Impression: Mild osteoarthritis of both knees. This report was electronically signed by ALICIA GREEN M.D. ??on 09/09/2016 12:01 PM . Narrative 09/09/2016 12:01 PM PRIME BROKER Examination: 1. Left knee minimum 4 views [...] mild tricompartmental left knee osteoarthritis. Procedure Note Alicia Green MD - 10/29/2017 Examination: 1. Left [...] knees. This report was electronically signed by ALICIA GREEN M.D. on 09/09/201612:01 PM . Sun Mike PA-C DIAGNOSTIC IMAGING O RDERABLES documented in this encounter Visit Diagnoses Diagnosis Pain in right knee Pain in joint, lower leg Pain in left knee Pain in joint, lower leg documented in this encounter Care Teams Regulatory Auditor Relationship Specialty Start Date End Date Blake Lindsey MD [address] [place] [phone] PCP - General 05/20/16 documented as of this encounter
--- OUTSIDE RECORDS SUMMARY | 2024-07-29 17:23 | XMS_ITS | Encounter Summary ---
Author Organization [facility] Health Address [address] [place] [address] Care Team Providers Care Insurance Policy Issue Clerk Name Role Phone Blake Lindsey MD Primary Care Provider [phone] Encounter Details Date Type Department Care Team (Latest Contact Info) Description 11/21/2014 Hospital Outpatient Visit Historic [facility] PET [address] [place] [phone] Discharge Disposition: Home or Self Care Social [...] Associated Diagnosis Comments PET CT WHOLE BODY Routine 11/21/2014 11: 30 AM CDT GLUCOSE - POINT OF CARE (AMB) [facility] Routine 11/21/2014 9:20 AM CDT GLUCOSE - POINT OF CARE (AMB) [facility] Routine 11/21/2014 9:20 AM CDT documented in this encounter Results * PET CT WHOLE BODY (11/21/2014 11:30 AM CDT) Anatomical Region Laterality Modality Other Impressions 11/21/2014 12:07 PM CDT IMPRESSION: 1. Decreased size and FDG avidity of the anterior mediastinal mass which may represent thymic hyperplasia or thymic rebound in the setting of chemotherapy. 2. Slight increased size and FDG avidity of cervical lymph nodes may be reactive, however, early metastasis is not excluded. Close followup is recommended. 3. Unchanged lytic lesion in the L5 vertebral body, likely representing a treated lesion. No other FDG osseous lesions are identified. This report was approved ??by Karolina Almanzar M.D. ?? on 11/21/2014 11:55 AM . I, Dr. MARSHAL PATEL D.O. have personally reviewed and interpreted this examination/study. This report was electronically signed by MARSHAL PATEL D.O. ??on 11/21/2014 12:07 PM . Narrative 11/21/2014 12:07 PM CDT Procedure: PET/CT STUDY Referring Physician: Dr. Castillo Woods HISTORY: 43-year-old female with a history of Hodgkin's lymphoma, diagnosed in September of 2012, status post chemotherapy. Earlier sites of disease included the mediastinum, left supraclavicular, and right inguinal nodes. The prior PET/CT on 05/24/2014 demonstrates grossly unchanged anterior mediastinal mass with decreased FDG avidity which may represent thymic hyperplasia versus less likely a neoplastic process. It also identified decreased size and FDG avidity of the cervical lymph nodes and inguinal lymph nodes and an unchanged lytic lesion in the L5 vertebral body which may represent a treated lesion. Evaluate for subsequent treatment strategy. TECHNIQUE: ??12.17 mCi of F-18 FDG by IV in the left AC fossa. PET/CT image acquisition from top of the head to the feet after approx. 60 min. post- injection with the CT being low-dose, non-contrast. No separate report for the CT was generated since it was of non-diagnostic quality. Blood glucose level at the time of injection was 92 mg/dl. FINDINGS: Comparison is made to the PET/CT dated 05/24/2014. Head and neck: Symmetric uptake is seen in the tonsils with an SUV max of 6.2, not significantly changed since the prior exam. Mildly prominent, FDG avid cervical lymph nodes are noted. For reference, a right level IIb lymph node measures 9 mm in short axis with an SUV max of 2.5, previously 6 mm in diameter with SUV max of 1.6. A left level IIb lymph node measures 8 mm in diameter with an SUV max of 2.3, previously 7 mm in diameter with an SUV max of 1.4. Chest: The previously noted anterior mediastinal soft tissue mass has decreased in size and FDG avidity in comparison to the prior exam with an SUV max of 1.7, previously 3.1. Benign-appearing axillary and hilar lymph nodes are noted. The trachea is patent and midline. Bilateral atelectasis is noted. There is no pleural effusion or pneumothorax. No hypermetabolic pulmonary nodules are identified. Abdomen and pelvis: The liver, spleen, pancreas, adrenal glands, and kidneys are within normal limits. There is no hydronephrosis. Mild to moderate uptake in the bowel may be physiologic versus mild inflammatory. No hypermetabolic abdominal lymph nodes are seen. A subcentimeter right inguinal lymph node demonstrates an SUV max of 1.2, previously 0.9, grossly unchanged accounting for the liver to lesion ratio. An intrauterine device is present within the uterus. For reference, SUVmax of liver is 2.9, previously 2.6. Musculoskeletal: The patient is status post posterior spinal fusion of the lower cervical and upper thoracic spine. A lytic lesion with peripheral sclerosis in the L5 vertebral body is grossly unchanged in size and FDG avidity in comparison to the prior exam. Degenerative changes are seen in the knees. Procedure Note Marshal Patel, DO - 10/30/2017 Procedure: PET/CT STUDY Referring Physician: Dr. Castillo Woods HISTORY: 43-year-old female with a history of Hodgkin's lymphoma,diagnosed in September of 2012, status post chemotherapy. Earlier sites ofdisease included the mediastinum, left supraclavicular, and right inguinalnodes. The prior PET/CT on 05/24/2014 demonstrates grossly unchanged anterior mediastinal mass with decreasedFDG avidity which may represent thymic hyperplasia versus less likely aneoplastic process. It also identified decreased size and FDG avidity ofthe cervical lymph nodes and inguinal lymph nodes and an unchanged lytic lesion in the L5 vertebral body whichmay represent a treated lesion. Evaluate for subsequent treatmentstrategy. TECHNIQUE: 12.17 mCi of F-18 FDG by IV in the left AC fossa. PET/CT imageacquisition from top of the head to the feet after approx. 60 min.post-injection with the CT being low-dose, non-contrast. No separatereport for the CT was generated since it was of non-diagnostic quality. Blood glucose level at the time ofinjection was 92 mg/dl. FINDINGS: Comparison is made to the PET/CT dated 05/24/2014. Head and neck: Symmetric uptake is seen in the tonsils with an SUV max of6.2, not significantly changed since the prior exam. Mildly prominent, FDGavid cervical lymph nodes are noted. For reference, a right level IIblymph node measures 9 mm in short axis with an SUV max of 2.5, previously 6 mm in diameter with SUV max of1.6. A left level IIb lymph node measures 8 mm in diameter with an SUV maxof 2.3, previously 7 mm in diameter with an SUV max of 1.4. Chest: The previously noted anterior mediastinal soft tissue mass hasdecreased in size and FDG avidity in comparison to the prior exam with anSUV max of 1.7, previously 3.1. Benign-appearing axillary and hilar lymphnodes are noted. The trachea is patent and midline. Bilateral atelectasis is noted. There is no pleuraleffusion or pneumothorax. No hypermetabolic pulmonary nodules areidentified. Abdomen and pelvis: The liver, spleen, pancreas, adrenal glands, andkidneys are within normal limits. There is no hydronephrosis. Mild tomoderate uptake in the bowel may be physiologic versus mild inflammatory.No hypermetabolic abdominal lymph nodes are seen. A subcentimeter right inguinal lymph node demonstrates an SUVmax of 1.2, previously 0.9, grossly unchanged accounting for the liver tolesion ratio. An intrauterine device is present within the uterus. For reference, SUVmax of liver is 2.9, previously 2.6. Musculoskeletal: The patient is status post posterior spinal fusion of thelower cervical and upper thoracic spine. A lytic lesion with peripheralsclerosis in the L5 vertebral body is grossly unchanged in size and FDGavidity in comparison to the prior exam. Degenerative changes are seen in the knees. IMPRESSION IMPRESSION: 1. Decreased size and FDG avidity of the anterior mediastinal mass whichmay represent thymic hyperplasia or thymic rebound in the setting ofchemotherapy. 2. Slight increased size and FDG avidity of cervical lymph nodes may bereactive, however, early metastasis is not excluded. Close followup isrecommended. 3. Unchanged lytic lesion in the L5 vertebral body, likely representing atreated lesion. No other FDG osseous lesions are identified. This report was approved by Karolina Almanzar M.D. on 11/21/2014 11:55 AM. I, Dr. MARSHAL PATEL D.O. have personally reviewed and interpreted thisexamination/study. This report was electronically signed by MARSHAL PATEL D.O. on 11/21/201412:07 PM . Castillo Max MD [place] ORDERABLES * GLUCOSE - POINT OF CARE (AMB) [facility] (11/21/2014 9:20 AM CDT) Jose Shin MD LAB - POINT OF CARE ORDERABLES [facility] RADIOLOGY * GLUCOSE - POINT OF CARE (AMB) [facility] (11/21/2014 9:20 AM CDT) Glucose POCT 92 mg/dL [facility] Capillary blood specimen (specimen) 11/21/2014 9:20 AM CDT Jose Shin MD LAB - POINT OF CARE ORDERABLES [facility] documented in this encounter Visit Diagnoses Diagnosis Hodgkin's disease (HCC) documented in this encounter Care Teams Insurance Policy Issue Clerk Relationship Specialty Start Date End Date Blake Lindsey MD [address] [place] [address] PCP - General 05/20/16 documented as of this encounter
--- OUTSIDE RECORDS SUMMARY | 2024-07-29 17:23 | XMS_ITS | Encounter Summary ---
Author Organization [facility] Address [address] [place] [address] Care Team Providers Care Seed District Sales Manager Name Role Phone Blake Lindsey MD Primary Care Provider [phone] Encounter Details Date Type Department Care Team (Latest Contact Info) Description 07/12/2016 Emergency Department [facility] EMERGENCY DEPARTMENT [address] [place], [place] [id number] Bib Arenas MD [address] [place] [address] Discharge Disposition: Home or Self Care Social [...] Sign Reading Time Taken Comments Blood Pressure 129/103 07/12/2016 3:30 PM AIR CONDITIONING INSTALLER SUPERVISOR Pulse 76 07/12/2016 3:32 PM AIR CONDITIONING INSTALLER SUPERVISOR Temperature 36.7 ??C (98 ??F) 07/12/2016 1:28 PM AIR CONDITIONING INSTALLER SUPERVISOR Respiratory Rate 17 07/12/2016 3:32 PM AIR CONDITIONING INSTALLER SUPERVISOR Oxygen Saturation 98% 07/12/2016 3:32 PM AIR CONDITIONING INSTALLER SUPERVISOR Inhaled Oxygen Concentration - - Weight 99.8 kg (220 lb) 07/12/2016 1:28 PM AIR CONDITIONING INSTALLER SUPERVISOR Height 160 cm (5' 3 ) 07/12/2016 1:28 PM AIR CONDITIONING INSTALLER SUPERVISOR Body Mass Index 38.97 07/12/2016 1:28 PM AIR CONDITIONING INSTALLER SUPERVISOR documented in this encounter ED Notes * Ke Montoya MD - 07/12/2016 1:46 PM CST ED Provider Notes Signed by Ke Montoya MD on 07/12/2016 5:17 PM Author: Ke Montoya MD Service: Emergency Author Type: Resident Date of Service: 07/12/2016 1:46 PM Filed: 07/12/2016 5:17 PM Note Type: ED Provider Notes Status: Signed Incident Response Coordinator: Ke Montoya MD (Resident) Cosigner: Bib Arenas MD at 07/12/2016 5:29 PM History Chief Complaint Patient presents with ??? Numbness c/o 'i can't feel my arms and legs'; admits to falling on but has been feeling fine since-denies LOC; has had migraine off and on since wednesday but has hx of migraine; today around 1130 'could not move my arms or legs and feel burning; i can't feel my feet at all; HPI 45 yo F w/ known hx of Hodgkin's Lymphoma stage 4 that had progressed to bone and required spinal fusion from C5-T12 and had hx of disruption of procedure within last year coming in for numbness/tingling in both upper and lower extremities. Reports she fell 3 days ago while walking her dogs, fell onto her left side, stayed on the ground for a few minutes, got back up and felt fine. No head injury, loss of vision, difficulty with movement or numbness/tingling after fall. Next 2 days went by without issue, but then woke up this morning with a headache. Reports this is normal for her, tends to wake up with a headache, feels nauseous. Had an episode of non-bloody emesis, took an imitrex. 2 hours later around 11 she took another imitrex, smoked some weed for pain control. A little bit after that, she tried to get up to go the bathroom, but felt like she couldn't feel her arms and legs. Was going to the bathroom without issue this morning, no problems with urination, and some episodes of diarrhea. Reports inability to move arms and legs. Can feel pressure points throughout body, difficulty moving extremities, no problems following commands. Extensive PM, PS, and allergy hx. Past Medical History Diagnosis Date ??? Activity intolerance sob with exertion, denies cp ??? Allergy pcn, Codeine, Epi ??? Anemia, unspecified 02/06/2013 ??? Anxiety ??? Asthma last use of albuterol inhaler- 5months ago, never been intubated for asthma, no admissions for asthma ??? Blood circulation, collateral ??? Blood transfusion, without reported diagnosis ??? Cancer dx 09/30/12, Hodkins ??? Chronic pain shoulders and back ??? Community acquired pneumonia 07/2014, october, aug, RSV ??? Depression ??? Echocardiogram findings abnormal, without diagnosis at [facility] ??? GERD (gastroesophageal reflux disease) 07/13/2013 ??? Mental disorder Claustrophobia ??? Osteoporosis ??? Radiation chemo only, last time ??? Sleep apnea central sleep apnea, cpap Past Surgical History Procedure Laterality Date ??? Pr femur/knee surg unlisted both knees ??? Biopsy ??? Hx spinal fusion ??? Lalita tooth extraction ??? Hx back surgery Family History Problem Relation Age of Onset ??? Cancer Father ??? Diabetes Mother ??? Heart Disease Mother Father ??? Hypertension Mother Social History Substance Use Topics ??? Smoking status: Former Smoker Packs/day: 1.00 Years: 10.00 Types: Cigarettes Quit date: 11/30/1997 ??? Smokeless tobacco: Never Used ??? Alcohol use 0.5 oz/week 1 Standard drinks or equivalent per week Comment: once a month Review of Systems Reports No acute AREVALO, changes in vision or hearing, CP, SOB, n/v, diarrhea/constipation. Physical Exam Visit Vitals ??? BP (!) 135/93 ??? Pulse 86 ??? Temp 98 ??F (36.7 ??C) (Oral) ??? Resp 27 ??? Ht 5' 3 (1.6 m) ??? Wt 220 lb (99.8 kg) ??? SpO2 98% ??? BMI 38.97 kg/m2 Physical Exam HEENT: PERRLA, EOM intact, TM's clear, oropharynx w/o exudate CV: pulses 2+ radial and DP Heart: RRR no murmurs Lungs: CTAB Abd: NT, ND, normal bowel sounds Extremities: No rashes or bruises Neuro: CN intact, appropriate response to commands, weakness in bilateral arms and legs, feels tactile sensation, some posturing of hands ED Course ED Course No acute si/sx of stroke, seizure or syncope Will get XR T-spine, CBC, CMP and UA Replete electrolytes as needed Give 1L NS bolus Procedures MDM ED Final Diagnosis and Discharge information 1. Numbness and tingling Numbness/tingling improved without issue throughout her ER stay IVF, KCl given Imaging wnl Instructed to continue home meds as routine, and follow up with PCM for medication management F/u with ER for any acute concerns, patient agreed to and understood plan Scripts ED Discharge Orders None Follow-up Disposition Home Nonsteroidals, Routine Home Meds Ke Montoya MD Resident 07/12/16 3370 CONDITIONING INSTALLER SUPERVISOR * Bib Arenas MD - 07/12/2016 1:25 PM CST ED Provider Notes Signed by Bib Arenas MD on 07/12/2016 5:28 PM Author: Bib Arenas MD Service: Emergency Author Type: Physician Date of Service: 07/12/2016 1:25 PM Filed: 07/12/2016 5:28 PM Note Type: ED Provider Notes Status: Signed Incident Response Coordinator: Bib Arenas MD (Physician) ED Resident Attestation I have personally seen, examined and been fully involved in the management of this patient with theresident. I confirm history, exam, assessment and plan Discussed with the resident. In addition I note: Interval History: Lakeisha Alejandra is a 45 y.o. female with a past medical history of Hodgkin's Lymphoma and migraines is presenting to the ED c/o numbness and tingling in her whole body that began early this afternoon after trying to get up to go to the bathroom. This morning, patient reports she was having increased urinary frequency and had to use the restroom about 10 times. This afternoon, she tried to get upto go to the bathroom again and she collapsed. She reports she suddenly became tingly, numb, and weak from the neck down. Her helped her to the bathroom and she felt like her whole body was on fire. Patient could not urinate. Pts then took her back to the bed, she dropped to one knee, and passed out. She endorses back pain that is baseline for her since her surgery. Her pain has not increased in severity. Patient has had similar syncopal episodes in the past, but has never had the burning sensation before. Incidentally, patient also complains of a cough she has had for a month and was last on ABX 2 weeksago. Denies shortness of breath. Past Medical History Diagnosis Date ??? Activity intolerance sob with exertion, denies cp ??? Allergy pcn, Codeine, Epi ??? Anemia, unspecified 02/06/2013 ??? Anxiety ??? Asthma last use of albuterol inhaler- 5months ago, never been intubated for asthma, no admissions for asthma ??? Blood circulation, collateral ??? Blood transfusion, without reported diagnosis ??? Cancer dx 09/30/12, Hodkins ??? Chronic pain shoulders and back ??? Community acquired pneumonia 07/2014, october, aug, RSV ??? Depression ??? Echocardiogram findings abnormal, without diagnosis at [facility] ??? GERD (gastroesophageal reflux disease) 07/13/2013 ??? Mental disorder Claustrophobia ??? Osteoporosis ??? Radiation chemo only, last time -2012 ??? Sleep apnea central sleep apnea, cpap Past Surgical History Procedure Laterality Date ??? Pr femur/knee surg unlisted both knees ??? Biopsy ??? Hx spinal fusion ??? Lalita tooth extraction ??? Hx back surgery Social History Social History ??? Marital status: Single Spouse name: N/A ??? Number of children: N/A ??? Years of education: N/A Occupational History ??? Not on file. Social History Main Topics ??? Smoking status: Former Smoker Packs/day: 1.00 Years: 10.00 Types: Cigarettes Quit date: 11/30/1997 ??? Smokeless tobacco: Never Used ??? Alcohol use 0.5 oz/week 1 Standard drinks or equivalent per week Comment: once a month ??? Drug use: No ??? Sexual activity: Yes Partners: Male Other Topics Concern ??? Not on file Social History Narrative Review of Systems: Constitutional: Negative for fever HENT: Negative for sore throat, runny nose, Respiratory: +cough, Negative for sob Cardiovascular: Negative for chest pain Gastrointestinal: Negative abdominal pain, vomiting Endocrine: Negative for polyuria. Genitourinary: +urinary frequency, +urinary urgency, Musculoskeletal: +back pain, Negative for neck pain Skin: Negative for rash Allergic/Immunologic: Negative for immunocompromised state. Neurological: +weakness/+numbness/+tingling,/+burning from the neck down, Vitals: 07/12/16 1445 07/12/16 1500 07/12/16 1530 07/12/16 1532 BP: (!) 134/93 138/87 (!) 129/103 BP Location: Pulse: 56 60 76 Resp: 14 22 17 Temp: TempSrc: SpO2: 91% 92% 98% Weight: Height: Exam: comfortable no distress JALIL Neck supple nttp Chest CTA Heart RRR Abd Soft mild suprapubic ttp otherwise no distension no r/g Back ttp thoracic spine, pt reports reflects her chronic pain Rectal good tone Ext no edema, Skin warm , dry Neuro alert, contracture bilateral hands but able to move all four extremties equally with pain Medical Decision Making: Numbness, contracture/spasms Assessment/Plan: CMET to r/o electrolyte abnormality--pt on lasix and dieting, possibly dehydrated with hypokalemia, check blood sugar to r/o hypoglycemia, UA to r/o UTI given frequence of urination,UDS given reported drug use at onset of symptoms Results: Labs Reviewed COMPREHENSIVE METABOLIC PANEL - Abnormal; Notable for the following: Result Value Potassium 3.2 (*) Carbon Dioxide 21 (*) AST 35 (*) All other components within normal limits URINALYSIS WITH REFLEX TO MICROSCOPIC - Abnormal; Notable for the following: Clarity Hazy (*) pH UA 8.5 (*) Protein UA Trace (*) Ketones UA 40 (*) Leukocyte Esterase UA Trace (*) WBC UA 3 (*) Bacteria UA Many (*) Mucous UA Many (*) All other components within normal limits DRUG SCREEN COMPREHENSIVE URINE - Abnormal; Notable for the following: Opiates, Urine Screen Positive (*) Cannabinoids (THC), Urine Screen Positive (*) All other components within normal limits Narrative: The Urine Toxicology Screening Panel does not screen for Propoxyphene, Meprobamate, Carisoprodol, Trazodone, bgpy-nre-raiiegz medications and/or volatiles (Acetone, Isopropanol, Methanol or Ethylene Glycol). Ethanol, Salicylate, Acetaminophen, Tricyclic Antidepressants and several therapeutic drugsmay be individually assayed in serum or plasma specimen. Toxicology testing by the [facility] is an aid to medical diagnosisand treatment of patients. No documented chain of custody was maintained. Results are intended to be used for clinical purposes only. CBC WITH DIFFERENTIAL - Abnormal; Notable for the following: Hemoglobin 16.6 (*) Hematocrit 46.0 (*) MCHC 36.1 (*) MPV 8.8 (*) Neutrophil % 74.8 (*) Lymphocytes % 18.1 (*) All other components within normal limits MAGNESIUM - Normal CBC W/ DIFFERENTIAL Narrative: The following orders were created for panel order CBC w Differential. Procedure Abnormality Status --------- ------ CBC WITH DIFFERENTIAL[[id number]] Abnormal Final result Please view results for these tests on the individual orders. XR Spine Thoracic 2 Vws (Results Pending) ED course: The patient's Oxygen Saturation Monitor was interpreted by me. The reading was 98%. The patient wason room air at the time of the reading. This is interpreted as normal. Pt noted to be moving all four extremities symmetrically, now reports improvement in symptoms. INformed of decreased K, dehydration. She is able to ambulate and walk per usual. She now c/o watery diarrhea. Pt encouraged to take more po fluids to prevent further dehydration. Consult No Procedure done at this time No Ultrasound done at this time No CRITICAL CARE IN THE ED No Orders and Medicine administered during this encounter: No orders of the defined types were placed in this encounter. Medications - No data to display Clinical Impression: 1. Numbness and tingling 2. Hypokalemia 3. Dehydration Disposition: Home Please see resident note for further details I, Dr. Arenas, personally performed the services described in this documentation. All medical record entries made by the scribe were at my direction and in my presence. I have reviewed the chart and agree that the record reflects my personal performance and is accurate and complete. Electronically signed: Dr. Arenas. 07/12/2016. 1:25 PM. By signing my name below, I, Ivon Page, attest that this documentation has been prepared under the direction and in the presence of Dr. Arenas. Electronically Signed: Link Floyd. 07/12/2016. 1:25 PM. Bib Arenas MD 07/12/16 1728 CONDITIONING INSTALLER SUPERVISOR documented in this encounter Plan of Treatment Not on file documented as of this encounter Procedures Procedure Name Priority Date/Time Associated Diagnosis Comments DRUG ABUSE PANEL 10-20+ETHANOL URINE NO CONFIRM Routine 07/12/2016 3:54 PM AIR CONDITIONING INSTALLER SUPERVISOR URINALYSIS REFLEX TO MICROSCOPIC NO CULTURE STAT 07/12/2016 3:54 PM AIR CONDITIONING INSTALLER SUPERVISOR XR THORACIC SPINE 2VW Routine 07/12/2016 3:21 PM AIR CONDITIONING INSTALLER SUPERVISOR CBC W AUTO DIFFERENTIAL STAT 07/12/2016 2:31 PM AIR CONDITIONING INSTALLER SUPERVISOR COMPREHENSIVE METABOLIC PANEL STAT 07/12/2016 2:31 PM AIR CONDITIONING INSTALLER SUPERVISOR MAGNESIUM BLOOD STAT 07/12/2016 2:31 PM AIR CONDITIONING INSTALLER SUPERVISOR CBC W AUTO DIFFERENTIAL STAT 07/12/2016 2:31 PM AIR CONDITIONING INSTALLER SUPERVISOR documented in this encounter Results * (ABNORMAL) DRUG ABUSE PANEL 10-20+ETHANOL URINE NO CONFIRM (07/12/2016 3:54 PM AIR CONDITIONING INSTALLER SUPERVISOR) Amphetamines Screen Urine Negative Negative : < 1000 ng/mL [facility] Barbiturates Screen Urine Negative Negative : < 200 ng/mL [facility] Benzodiazepine Screen Urine Negative Negative : < 200 ng/mL [facility] Opiates Urine Positive(A) Negative : < 300 ng/mL [facility] Comment: Positive urine opiate screening results should be confirmed by another generally accepted non-immunological method such as gas chromatography or mass spectrometry. ? Cocaine Metabolites Urine Negative Negative : < 300 ng/mL [facility] Phencyclidine Screen Urine Negative Negative : < 25 ng/ml [facility] Cannabinoids Screen Urine Positive(A) Negative : <50 ng/mL [facility] Comment: Positive urine cannabinoids (THC) screening results should be confirmed by another generally accepted non-immunological method such as gas chromatography or mass spectrometry. ? Methadone Screen Urine Negative Negative : < 300 ng/mL [facility] Urine specimen (specimen) URINE / Unknown 07/12/2016 3:54 PM AIR CONDITIONING INSTALLER SUPERVISOR 07/12/2016 3:57 PM AIR CONDITIONING INSTALLER SUPERVISOR [facility] - 07/12/2016 4:12 PM AIR CONDITIONING INSTALLER SUPERVISOR The Urine Toxicology Screening Panel does not screen for Propoxyphene, Meprobamate, Carisoprodol, Trazodone, tdfq-rna-knlazdg medications and/or volatiles (Acetone, Isopropanol, Methanol or Ethylene Glycol). Ethanol, Salicylate, Acetaminophen, Tricyclic Antidepressants and several therapeutic drugs may be individually assayed in serum or plasma specimen. Toxicology testing by the [facility] is an aid to medical diagnosis and treatment of patients. No documented chain of custody was maintained. Results are intended to be used for clinical purposes only. ? Bib Arenas MD LAB - URINE CHEMISTR Y ORDERABLES Performing Organization Address [facility] Co de Phone Number [address] [phone] * (ABNORMAL) URINALYSIS REFLEX TO MICROSCOPIC NO CULTURE (07/12/2016 3:54 PM AIR CONDITIONING INSTALLER SUPERVISOR) Color UA Yellow Straw, Yellow, Colorless, Light Yellow [facility] Clarity UA Hazy(A) Clear [facility] Specific Holderness UA 1.012 1.001 - 1.030 [facility] pH UA 8.5(H) 5.0 - 8.0 [facility] Protein UA Trace(A) <=20 mg/dL [facility] Glucose UA Negative Negative mg/dL [facility] Ketone UA 40(A) Negative mg/dL [facility] Bilirubin UA Negative Negative mg/dL [facility] Blood UA Negative Negative [facility] Nitrite UA Negative Negative [facility] Leukocyte Esterase Trace(A) Negative [facility] Urobilinogen UA <2.0 <2.0 mg/dL [facility] RBC UA 4 0 - 8 /HPF [facility] WBC UA 3(H) 0 - 2 /HPF [facility] Bacteria UA Many(A) Rare, Occasional, None /HPF [facility] Squamous Epithelial Cells UA <1 0 - 1 /HPF [facility] Mucus UA Many(A) None /LPF [facility] Urine specimen (specimen) 07/12/2016 3:54 PM AIR CONDITIONING INSTALLER SUPERVISOR 07/12/2016 3:57 PM AIR CONDITIONING INSTALLER SUPERVISOR Bib Arenas MD LAB - URINALYSIS ORD ERABLES Performing Organization Address [facility]/ZIP Co de Phone Number [address] [phone] * XR THORACIC SPINE 2VW (07/12/2016 3:21 PM AIR CONDITIONING INSTALLER SUPERVISOR) Anatomical Region Laterality Modality Spine Other Impressions 07/13/2016 8:30 AM AIR CONDITIONING INSTALLER SUPERVISOR IMPRESSION: The patient is status post instrumented posterior spinal fusion from C5 through T12 with paired vertical rods, pedicle screws, and a cerclage wire. The instrumentation appears intact without evidence of failure. A T6 compression fracture is unchanged. No new fractures are identified. The spinal alignment is normal. Dictated by Peter Pineda MD (residential door unit installer). Dr. KATHERINE Muller M.D. have personally reviewed and interpreted this examination/study. This report was electronically signed by KATHERINE HO M.D. ??on 07/13/2016 8:30 AM . Narrative 07/13/2016 8:30 AM AIR CONDITIONING INSTALLER SUPERVISOR EXAMINATION: XR SPINE THORACIC 2 VWS HISTORY: History of spinal fusion for T6 burst fracture COMPARISON: Comparison is made with a study from 06/17/2016. FINDINGS/ Procedure Note Katherine Ho MD - 10/30/2017 EXAMINATION: XR SPINE THORACIC 2 VWS HISTORY: History of spinal fusion for T6 burst fracture COMPARISON: Comparison is made with a study from 06/17/2016. FINDINGS/ IMPRESSION IMPRESSION: The patient is status post instrumented posterior spinal fusion from H3gyliduo T12 with paired vertical rods, pedicle screws, and a cerclagewire. The instrumentation appears intact without evidence of failure. A [id number] fracture is unchanged. No new fractures are identified. The spinal alignment is normal. Dictated by Peter Pineda MD (residential door unit installer). Dr. KATHERINE Muller M.D. have personally reviewed and interpreted thisexamination/study. This report was electronically signed by KATHERINE HO M.D. on 07/13/20168:30 AM . Bib Arenas MD DIAGNOSTIC IMAGING O RDERABLES * (ABNORMAL) CBC W AUTO DIFFERENTIAL (07/12/2016 2:31 PM AIR CONDITIONING INSTALLER SUPERVISOR) WBC 8.6 3.5 - 10.5 10? 3 /uL [facility] RBC 4.93 3.90 - 5.00 10? 6 /uL [facility] Hemoglobin 16.6(H) 12.0 - 15.5 g/dL [facility] Hematocrit 46.0(H) 35.0 - 45.0 % [facility] MCV 93.3 81.0 - 97.0 fL [facility] MCH 33.7 28.0 - 34.0 pg [facility] MCHC 36.1(H) 32.0 - 36.0 g/dL [facility] Platelet Count 197 150 - 400 10? 3 /uL [facility] RDW-SD 46.7 36.0 - 50.0 fL [facility] RDW-CV 13.6 11.2 - 14.8 % [facility] MPV 8.8(L) 9.3 - 12.8 fL [facility] Neutrophils % 74.8(H) 35.0 - 70.0 % [facility] Lymphocytes % 18.1(L) 19.7 - 55.1 % [facility] Monocytes % 5.0 3.0 - 15.0 % [facility] Eosinophils % 1.9 0.0 - 6.0 % [facility] Basophil % 0.2 0.0 - 1.5 % [facility] Neutrophils Absolute 6.4 1.6 - 7.0 10? 3 /uL [facility] Lymphocyte Absolute 1.6 0.8 - 2.9 10? 3 /uL [facility] Monocytes Absolute 0.43 0.14 - 0.66 10? 3 /uL [facility] Eosinophils Absolute 0.16 0.00 - 0.22 10? 3 /uL [facility] Basophils Absolute 0.02 0.00 - 0.06 10? 3 /uL [facility] Immature Granulocytes % 0.3 0.0 - 1.0 % [facility] Blood specimen (specimen) BLOOD SPECIMEN / Unknown 07/12/2016 2:31 PM AIR CONDITIONING INSTALLER SUPERVISOR 07/12/2016 2:36 PM AIR CONDITIONING INSTALLER SUPERVISOR Bib Arenas MD LAB - HEMATOLOGY ORD ERABLES [address] [phone] * MAGNESIUM BLOOD (07/12/2016 2:31 PM AIR CONDITIONING INSTALLER SUPERVISOR) Magnesium 2.2 1.6 - 2.6 mg/dL [facility] Blood specimen (specimen) BLOOD SPECIMEN / Unknown 07/12/2016 2:31 PM AIR CONDITIONING INSTALLER SUPERVISOR 07/12/2016 2:36 PM AIR CONDITIONING INSTALLER SUPERVISOR Bib Arenas MD LAB - CHEMISTRY [facility] DE LA [facility]AR[facility] [address] [phone] * (ABNORMAL) COMPREHENSIVE METABOLIC PANEL (07/12/2016 2:31 PM AIR CONDITIONING INSTALLER SUPERVISOR) BUN 9 7 - 26 mg/dL [facility] Creatinine 0.7 0.6 - 1.2 mg/dL [facility] Sodium 143 136 - 145 mmol/L [facility] Potassium 3.2(L) 3.5 - 4.5 mmol/L [facility] Chloride 107 98 - 107 mmol/L [facility] CO2 21(L) 22 - 29 mmol/L [facility] Glucose 103 70 - 115 mg/dL [facility] Calcium 10.0 8.4 - 10.2 mg/dL [facility] Protein Total 7.7 6.0 - 8.3 g/dL [facility] Albumin 4.0 3.4 - 5.0 g/dL [facility] Bilirubin Total 1.0 0.2 - 1.2 mg/dL [facility] Alkaline Phosphatase 105 40 - 150 Units/L [facility] ALT 42 0 - 55 Units/L [facility] AST 35(H) 5 - 34 Units/L [facility] Anion Gap 18 8 - 18 [facility] BUN/Creatinine Ratio 13 7 - 23 [facility] Osmolality Calculated 295 270 - 300 mOsm/kg [facility] Albumin/Globulin Ratio 1.1 1.1 - 2.3 [facility] eGFR >60 >60 mL/min/1.7 3 m2 [facility] Blood specimen (specimen) BLOOD SPECIMEN / Unknown 07/12/2016 2:31 PM AIR CONDITIONING INSTALLER SUPERVISOR 07/12/2016 2:36 PM AIR CONDITIONING INSTALLER SUPERVISOR Bib Arenas MD LAB - CHEMISTRY [facility]HER DE LA GARZA [address] [phone] * CBC W AUTO DIFFERENTIAL (07/12/2016 2:31 PM AIR CONDITIONING INSTALLER SUPERVISOR) Blood specimen (specimen) BLOOD SPECIMEN / Unknown 07/12/2016 2:31 PM AIR CONDITIONING INSTALLER SUPERVISOR Narrative [facility] 07/12/2016 2:46 PM AIR CONDITIONING INSTALLER SUPERVISOR The following orders were created for panel order CBC w Differential. Procedure ? Abnormality ? Status ? --------- ? ------ ? CBC WITH DIFFERENTIAL[[id number]] ? Abnormal ?Final result ? Please view results for these tests on the individual orders. Bib Arenas MD LAB - HEMATOLOGY ORD ERABLES [facility] [address] documented in this encounter Visit Diagnoses Diagnosis Anesthesia of skin Disturbance of skin sensation Paresthesia of skin Disturbance of skin sensation documented in this encounter Care Teams Seed District Sales Manager Relationship Specialty Start Date End Date Blake Lindsey MD [address] [place] [address] PCP - General 05/20/16 documented as of this encounter
--- OUTSIDE RECORDS SUMMARY | 2024-07-29 17:23 | XMS_ITS | Encounter Summary ---
Author Organization [facility] Health Address [address] [place] [address] Care Team Providers Care Boot Trimmer Name Role Phone Blake Lindsey MD Primary Care Provider [phone] Encounter Details Date Type Department Care Team (Latest Contact Info) Description 02/19/2015 [facility] [address] [facility], [facility] [place] [place] [address] Reji Virk MD [address] [place], [place] [id number] Discharge Disposition: Home or Self Care Social [...] Procedure Name Priority Date/Time Associated Diagnosis Comments URINALYSIS REFLEX TO MICROSCOPIC NO CULTURE Routine 02/19/2015 11:55 AM CDT DIFFERENTIAL MANUAL Routine 02/19/2015 1 1:55 AM CDT CBC W AUTO DIFFERENTIAL Routine 02/19/2015 11:55 AM CDT BASIC METABOLIC PANEL (CALCIUM TOTAL) Routine 02/19/2015 11:55 AM CDT CBC W AUTO DIFFERENTIAL Routine 02/19/2015 11:55 AM CDT documented in this encounter Results * BASIC METABOLIC PANEL (CALCIUM TOTAL) (02/19/2015 11:55 AM CDT) BUN 10 7 - 26 mg/dL [facility] Creatinine 0.7 0.6 - 1.2 mg/dL [facility] Sodium 142 136 - 145 mmol/L [facility] Potassium 3.6 3.5 - 4.5 mmol/L [facility] Chloride 106 98 - 107 mmol/L [facility] CO2 25 22 - 29 mmol/L [facility] Glucose 110 70 - 115 mg/dL [facility] Calcium 9.6 8.4 - 10.2 mg/dL [facility] Anion Gap 15 8 - 18 [facility] BUN/Creatinine Ratio 14 7 - 23 [facility] Osmolality Calculated 279 270 - 300 mOsm/kg [facility] eGFR >60 >60 mL/min/1.7 3 m2 [facility] Blood specimen (specimen) BLOOD SPECIMEN / Unknown 02/19/2015 11:55 AM CDT 02/19/2015 12:42 PM CDT Reji Virk MD LAB - CHEMISTRY [facility] Organization Address City/State/ZIP Co de Phone Number [address] [phone] * (ABNORMAL) DIFFERENTIAL MANUAL (02/19/2015 11:55 AM CDT) WBC (corrected for NRBC) 6.7 10? 3 /uL [facility] Total Cell Count 100 [facility] Neutrophils Absolute Manual 4.82 1.60 - 7.00 10? 3 /uL [facility] Comment:(BANDS+SEGS) x WBC = NEUT # (ANC) Lymphocyte Absolute Manual 1.21 0.80 - 2.90 10? 3 /uL [facility] Monocytes Absolute Manual 0.47 0.14 - 0.66 10? 3 /uL [facility] Eosinophils Absolute Manual 0.20 0.00 - 0.22 10? 3 /uL [facility] Band % Manual 1 0 - 10 % [facility] Neutrophil % Manual 71(H) 30 - 60 % [facility] Lymphocyte % Manual 18(L) 20 - 45 % [facility] Monocytes % Manual 7 2 - 10 % [facility] Eosinophils % Manual 3 1 - 6 % [facility] Platelet Estimate Adequate Adequate [facility] RBC Morphology Normal [facility] Blood specimen (specimen) BLOOD SPECIMEN / Unknown 02/19/2015 11:55 AM CDT 02/19/2015 12:51 PM CDT Reji Virk MD LAB - HEMATOLOGY ORD ERABLES Performing Organization Address City/State/[facility] Co de Phone Number [address] [phone] * (ABNORMAL) URINALYSIS REFLEX TO MICROSCOPIC NO CULTURE (02/19/2015 11:55 AM CDT) Color UA Yellow Straw, Yellow, Colorless, Light Yellow [facility] Clarity UA Clear Clear [facility] Specific [place] UA 1.023 1.001 - 1.030 [facility] pH UA 5.5 5.0 - 8.0 [facility] Protein UA Trace(A) <=20 mg/dL [facility] Glucose UA Negative Negative mg/dL [facility] Ketone UA Negative Negative mg/dL [facility] Bilirubin UA Negative Negative mg/dL [facility] Blood UA Small(A) Negative [facility] Nitrite UA Negative Negative [facility] Leukocyte Esterase Large(A) Negative [facility] Urobilinogen UA <2.0 <2.0 mg/dL [facility] RBC UA 11(H) 0 - 8 /HPF [facility] WBC UA 18(H) 0 - 2 /HPF [facility] Bacteria UA Moderate(A) Rare, Occasional, None /HPF [facility] Squamous Epithelial Cells UA 1 0 - 1 /HPF [facility] Mucus UA Moderate(A) None /LPF [facility] Urine specimen (specimen) URINE SPECIMEN OBTAINED BY CLEAN CATCH PROCEDURE / Unknown 02/19/2015 11:55 AM CDT 02/19/2015 12:43 PM CDT Reji Virk MD LAB - URINALYSIS ORD ERABLES Performing Organization Address City/[facility]/ZIP Co de Phone Number [address] [phone] * (ABNORMAL) CBC W AUTO DIFFERENTIAL (02/19/2015 11:55 AM CDT) WBC 6.7 3.5 - 10.5 10? 3 /uL [facility] RBC 4.09 3.90 - 5.00 10? 6 /uL [facility] Hemoglobin 13.5 12.0 - 15.5 g/dL [facility] Hematocrit 39.9 35.0 - 45.0 % [facility] MCV 97.6(H) 81.0 - 97.0 fL [facility] MCH 33.0 28.0 - 34.0 pg [facility] MCHC 33.8 32.0 - 36.0 g/dL [facility] Platelet Count 162 150 - 400 10? 3 /uL [facility] RDW-SD 45.1 36.0 - 50.0 fL [facility] RDW-CV 12.6 11.2 - 14.8 % [facility] MPV 8.8(L) 9.3 - 12.8 fL [facility] Reflex Status Manual Differential to follow. [facility] Blood specimen (specimen) BLOOD SPECIMEN / Unknown 02/19/2015 11:55 AM CDT 02/19/2015 12:42 PM CDT Reji Virk MD LAB - HEMATOLOGY ORD ERABLES Performing Organization Address City/[facility]/ZIP Co de Phone Number [address] [phone] * CBC W AUTO DIFFERENTIAL (02/19/2015 11:55 AM CDT) Blood specimen (specimen) BLOOD SPECIMEN / Unknown 02/19/2015 11:55 AM CDT Narrative [facility] - 02/19/2015 1:06 PM CDT The following orders were created for panel order CBC W/ DIFFERENTIAL. Procedure ? Abnormality ? Status ? --------- ? ------ ? CBC WITH DIFFERENTIAL[[id number]] ? Abnormal ?Final result ? MANUAL DIFFERENTIAL[[id number]] ? Abnormal ?Final result ? Please view results for these tests on the individual orders. Reji Virk MD LAB - HEMATOLOGY ORD ERABLES Performing Organization Address City/State/[facility] Co de Phone Number [facility] [address] [place] [address], [facility] documented in this encounter Visit Diagnoses Diagnosis Other mechanical complication of other internal orthopedic device, implant, and graft (HCC) Other mechanical complication of other internal orthopedic device, implant, and graft Arthrodesis status documented in this encounter Care Teams Boot Trimmer Relationship Specialty Start Date End Date Blake Lindsey MD [address] [place] [address] PCP - General 05/20/16 documented as of this encounter
--- OUTSIDE RECORDS SUMMARY | 2024-07-29 17:23 | XMS_ITS | Encounter Summary ---
Author Organization [facility] Health Address [address] [facility] [place] [address] Care Team Providers Care Stone Gang Sawyer Name Role Phone Blake Lindsey MD Primary Care Provider [phone] Encounter Details Date Type Department Care Team (Late st Contact Info) Description 05/06/2016 [facility] [address] [place] [address] Wai Lowry MD [address] [place] [address] [place] [address] Discharge Disposition: Home or Self [...] on filedocumented in this encounter Care Teams Stone Gang Sawyer Relationship Specialty Start Date End Date Blake Lindsey MD [address] [place] [address] PCP - General 05/20/16 documented as of this encounter
--- OUTSIDE RECORDS SUMMARY | 2024-07-29 17:23 | XMS_ITS | Encounter Summary ---
Author Organization [facility] Health Address [address] [facility] [place] [address] Care Team Providers Care Electronics Production Supervisor Name Role Phone Blake Lindsey MD Primary Care Provider [phone] Encounter Details Date Type Department Care Team (Latest Contact Info) Description 06/12/2014 Hospital Outpatient Visit [facility] MRI [address] [place] [phone] Discharge Disposition: Home or Self Care Social [...] Procedure Name Priority Date/Time Associated Diagnosis Comments MRI CERVICAL SPINE WWO CONT Routine 06/12/2014 8:44 AM SUMMER INTERN documented in this encounter Results * MRI CERVICAL SPINE WWO CONT (06/12/2014 8:44 AM SUMMER INTERN) Anatomical Region Laterality Modality Spine Other Impressions 06/12/2014 11:56 AM SUMMER INTERN IMPRESSION: 1. Slightly increased size of the [...] ?? on 06/12/2014 11:32 AM. I, Dr. POLY IRELAND M.D. have personally reviewed and interpreted this examination/study. This report was electronically signed by POLY IRELAND M.D. ??on 06/12/2014 11:56 AM . Narrative 06/12/2014 11:56 AM SUMMER INTERN EXAMINATION: Magnetic resonance imaging (MRI) of the [...] identified in the vertebral arteries. Procedure Note Poly Ireland MD - 10/30/2017 EXAMINATION: Magnetic resonance imaging (MRI) of the cervical spinewithout and with contrast HISTORY: Hodgkin's lymphoma with palpable nodule in the region of [id number] status post chemotherapy which ended on 03/20/2013. [...] Sung M.D. on 06/12/201411:32 AM. I, Dr. POLY IRELAND M.D. have personally reviewed and interpreted thisexamination/study. This report was electronically signed by POLY IRELAND M.D. on06/12/2014 11:56 AM . Castillo Max MD MR ORDERABLES documented in this encounter Visit Diagnoses Diagnosis Hodgkin's disease (HCC) documented in this encounter Care Teams Electronics Production Supervisor Relationship Specialty Start Date End Date Blake Lindsey MD [address] [place] [address] PCP - General 05/20/16 documented as of this encounter
--- OUTSIDE RECORDS SUMMARY | 2024-07-29 17:23 | XMS_ITS | Encounter Summary ---
Author Organization [facility] Health Address [address] [facility] [place] [address] Care Team Providers Care Tapering Machine Operator Name Role Phone Blake Lindsey MD Primary Care Provider [phone] Encounter Details Date Type Department Care Team (Latest Contact Info) Description 11/07/2013 [facility] [address] [place], [facility] [place] [address] Reji Virk MD [address] [place], [place] [id number] Discharge Disposition: Home or Self Care Social [...] on filedocumented in this encounter Care Teams Tapering Machine Operator Relationship Specialty Start Date End Date Blake Lindsey MD [address] [place] [address] PCP - General 05/20/16 documented as of this encounter
--- OUTSIDE RECORDS SUMMARY | 2024-07-29 17:23 | XMS_ITS | Encounter Summary ---
Author Organization [facility] Health Address [address] [place] [address] Care Team Providers Care Head Of Maintenance Name Role Phone Blake Lindsey MD Primary Care Provider [phone] Encounter Details Date Type Department Care Team (Latest Contact Info) Description 11/21/2014 Hospital Outpatient Visit Historic [facility] [address] [place] [phone] Castillo Max MD [address] [place] [address] [address] [place] [id number] Discharge Disposition: Home or Self Care Social [...] on filedocumented in this encounter Care Teams Head Of Maintenance Relationship Specialty Start Date End Date Blake Lindsey MD [address] [place] [address] PCP - General 05/20/16 documented as of this encounter
--- OUTSIDE RECORDS SUMMARY | 2024-07-29 17:23 | XMS_ITS | Encounter Summary ---
Author Organization [facility] Health Address [address] [facility] [place] [address] Care Team Providers Care Auditing Control Clerk Name Role Phone Blake Lindsey MD Primary Care Provider [phone] Encounter Details Date Type Department Care Team (Latest Contact Info) Description 10/10/2013 Hospital Outpatient Visit Historic [facility] [address] [place] [phone] Castillo Max MD [address] [place] [address] [address] [place] [address] Discharge Disposition: Home or Self Care Social [...] Diagnosis Comments PET CT WHOLE BODY Routine 10/10/2013 10: 56 AM CDT GLUCOSE - POINT OF CARE (AMB) [facility] Routine 10/10/2013 GLUCOSE - POINT OF CARE (AMB) [facility] Routine 10/10/2013 documented in this encounter Results * PET CT WHOLE BODY (10/10/2013 10:56 AM CDT) Anatomical Region Laterality Modality Other Impressions 10/10/2013 1:16 PM CDT IMPRESSION: 1. Interval development of mild to moderate FDG uptake in the anterior mediastinum in what appears to be thymic tissue, likely reactive. 2. Interval decreased FDG uptake in the lytic L5 lesion, suggestive of treated lesion. 3. No new lesions to raise suspicion for disease recurrence. This report was approved ??by Mina Turner M.D. ?? on 10/10/2013 12:24 PM . I, Dr. MARSHAL PATEL D.O. have personally reviewed and interpreted this examination/study. This report was electronically signed by MARSHAL PATEL D.O. ??on 10/10/2013 1:16 PM . Narrative 10/10/2013 1:16 PM CDT Procedure: PET/CT Study. Referring Physician: Dr. Castillo Max HISTORY: 42-year-old female patient with Hodgkin's lymphoma, diagnosed in September 2012, status post chemotherapy. Earlier sites of disease included the mediastinum, left supraclavicular, and right inguinal nodes. Prior osseous metastases included sternum, ribs, multiple vertebrae, bilateral iliac wings, and left femur. Previous PET/CT on 06/26/2013 showed interval decreased metabolic activity in the manubrium, proximal sternum, and L5, interpreted as likely benign given interval improvement in the absence of therapy, as well as stable non-FDG avid lytic and sclerotic osseous lesions consistent with treated disease. The patient completed chemotherapy on 03/20/2013 and has not received any further therapy since then. Evaluate for restaging and subsequent treatment strategy. TECHNIQUE: 12.3 mCi of F-18 FDG by IV in the left arm. PET/CT images were acquired from top of the head to the feet after approx. 65 minutes post-injection with the CT being low-dose, non-contrast. No separate report for the CT was generated as it was of non-diagnostic quality and was used for anatomic localization and attenuation correction only. Blood glucose level at the time of injection was 83 mg/dl. FINDINGS: Comparison was made with prior study dated 06/26/2013 described above. Head and neck: Bilateral normal variant uptake is seen in the nasopharynx and pharyngeal tonsils. No abnormal FDG focus is present in the brain. Bilateral cervical level 2 lymph nodes are mildly FDG avid, SUV Max 2.4. Normal variant FDG uptake is seen in the larynx. Chest: Moderate bilateral FDG uptake in the anterior mediastinum with SUV Max 2.8 is likely related to thymic tissue, new since prior study. Benign-appearing bilateral axillary lymph nodes do not demonstrate significant FDG uptake. The lungs are clear, without evidence of pulmonary nodules or pleural effusion. Abdomen and pelvis: A gallstone is incidentally noted. An intrauterine device is visualized. Bilateral inguinal lymph nodes are mildly FDG avid, SUV Max 1.2. The liver, kidneys, and adrenal glands appear normal within the limits of low-dose, noncontrast CT. For reference, SUVmax of liver is 2.2, previous SUV Max 2.2 . Musculoskeletal: Orthopedic fixation hardware is again noted in the cervical and thoracic spine. A lytic lesion in the L5 vertebra on the right side appears stable in size and appearance from prior study and demonstrates interval decreased FDG uptake, SUV Max 2.2, previous SUV Max 2.6. Multiple other lytic and sclerotic osseous lesions are seen scattered throughout the skeleton, with stable mild FDG uptake, favoring treated lesions. Procedure Note Marshal Patel, DO - 10/30/2017 Procedure: PET/CT Study. Referring Physician: Dr. Castillo Max HISTORY: 42-year-old female patient with Hodgkin's lymphoma, diagnosed inSeptember 2012, status post chemotherapy. Earlier sites of disease includedthe mediastinum, left supraclavicular, and right inguinal nodes. Priorosseous metastases included sternum, ribs, multiple vertebrae, bilateral iliac wings, and left femur. PreviousPET/CT on 06/26/2013 showed interval decreased metabolic activity in themanubrium, proximal sternum, and L5, interpreted as likely benign giveninterval improvement in the absence of therapy, as well as stable non-FDG avid lytic and sclerotic osseouslesions consistent with treated disease. The patient completedchemotherapy on 03/20/2013 and has not received any further therapy sincethen. Evaluate for restaging and subsequent treatment strategy. TECHNIQUE: 12.3 mCi of F-18 FDG by IV in the left arm. PET/CT images wereacquired from top of the head to the feet after approx. 65 minutespost-injection with the CT being low-dose, non-contrast. No separatereport for the CT was generated as it was of non-diagnostic quality and was used for anatomic localization andattenuation correction only. Blood glucose level at the time of injectionwas 83 mg/dl. FINDINGS: Comparison was made with prior study dated 06/26/2013 describedabove. Head and neck: Bilateral normal variant uptake is seen in the nasopharynxand pharyngeal tonsils. No abnormal FDG focus is present in the brain.Bilateral cervical level 2 lymph nodes are mildly FDG avid, SUV Max 2.4.Normal variant FDG uptake is seen in the larynx. Chest: Moderate bilateral FDG uptake in the anterior mediastinum with SUVMax 2.8 is likely related to thymic tissue, new since prior study.Benign-appearing bilateral axillary lymph nodes do not demonstratesignificant FDG uptake. The lungs are clear, without evidence of pulmonary nodules or pleural effusion. Abdomen and pelvis: A gallstone is incidentally noted. An intrauterinedevice is visualized. Bilateral inguinal lymph nodes are mildly FDG avid,SUV Max 1.2. The liver, kidneys, and adrenal glands appear normal withinthe limits of low-dose, noncontrast CT. For reference, SUVmax of liver is 2.2, previous SUV Max 2.2 . Musculoskeletal: Orthopedic fixation hardware is again noted in thecervical and thoracic spine. A lytic lesion in the L5 vertebra on theright side appears stable in size and appearance from prior study anddemonstrates interval decreased FDG uptake, SUV Max 2.2, previous SUV Max 2.6. Multiple other lytic and scleroticosseous lesions are seen scattered throughout the skeleton, with stablemild FDG uptake, favoring treated lesions. IMPRESSION IMPRESSION: 1. Interval development of mild to moderate FDG uptake in the anteriormediastinum in what appears to be thymic tissue, likely reactive. 2. Interval decreased FDG uptake in the lytic L5 lesion, suggestive oftreated lesion. 3. No new lesions to raise suspicion for disease recurrence. This report was approved by Mina Turner M.D. on 10/10/2013 12:[address] MARSHAL Muller D.O. have personally reviewed and interpreted thisexamination/study. This report was electronically signed by MARSHAL PATEL D.O. on 10/10/20131:16 PM . 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
--- OUTSIDE RECORDS SUMMARY | 2024-07-29 17:23 | XMS_ITS | Encounter Summary ---
Author Organization [facility] Health Address [address] [facility] [place] [address] Care Team Providers Care Consulting Solution Manager Name Role Phone Blake Lindsey MD Primary Care Provider [phone] Encounter Details Date Type Department Care Team (Latest Contact Info) Description 09/21/2016 Hospital Outpatient Visit Historic [facility] [address] [place] [address] Rachael Black MD [address] [facility] [place] [phone] Discharge Disposition: Home or Self Care Social [...] on filedocumented in this encounter Care Teams Consulting Solution Manager Relationship Specialty Start Date End Date Blake Lindsey MD [address] [place] [address] PCP - General 05/20/16 documented as of this encounter
--- OUTSIDE RECORDS SUMMARY | 2024-07-29 17:23 | XMS_ITS | Encounter Summary ---
Author Organization [facility] Health Address [address] [place] [address] Care Team Providers Care Steam Box Tender Name Role Phone Blake Lindsey MD Primary Care Provider [phone] Encounter Details Date Type Department Care Team (Late st Contact Info) Description 11/06/2015 [facility] [address] [place] [id number] Wai Lowry MD [address] [place] [address] OF ORTHOPEDIC SURGERY [place], [place] [id number] Discharge Disposition: Home or Self Care Social [...] XR SHOULDER LEFT 2VW OR MORE Routine 11/06/2015 10:44 AM CDT documented in this encounter Results * XR SHOULDER LEFT 2VW OR MORE (11/06/2015 10:44 AM CDT) Anatomical Region Laterality Modality Upper Extremity Other Impressions 11/06/2015 11:48 AM CDT Impression: Mild osteoarthritis of the acromioclavicular joint with mild widening, which may represent a chronic sprain. This report has been dictated by Amrita Schuler M.D. (Resident). This report was approved ??by Amrita Schuler ?? on 11/06/2015 11:25 AM . I, Dr. ALMAS GREEN M.D. have personally reviewed and interpreted this examination/study. This report was electronically signed by ALMAS GREEN M.D. ??on 11/06/2015 11:48 AM . Narrative 11/06/2015 11:48 AM CDT Exam: ??Left shoulder, 3 views Date: 11/06/2015 History: 44-year-old female with left shoulder pain. Comparison: MRI of the left shoulder dated 11/05/2015 and thoracic spine radiographs dated 10/30/2015. Findings: Cervicothoracic spinal fusion instrumentation is partially imaged. There is no acute fracture. The acromioclavicular joint is mildly widened and demonstrates mild degenerative changes as demonstrated on the MRI of the left shoulder dated 11/05/2015. The glenohumeral joint appears normal. The left hemidiaphragm is markedly elevated, unchanged compared to the prior thoracic spine radiographs dated 10/30/2015. Procedure Note Almas Green MD - 10/30/2017 Exam: Left shoulder, 3 views Date: 11/06/2015 History: 44-year-old female with left shoulder pain. Comparison: MRI of the left shoulder dated 11/05/2015 and thoracic spineradiographs dated 10/30/2015. Findings: Cervicothoracic spinal fusion instrumentation is partially imaged. There is no acute fracture. The acromioclavicular joint is mildly widenedand demonstrates mild degenerative changes as demonstrated on the MRI ofthe left shoulder dated 11/05/2015. The glenohumeral joint appears normal. The left hemidiaphragm is markedly elevated, unchanged compared to theprior thoracic spine radiographs dated 10/30/2015. IMPRESSION Impression: Mild osteoarthritis of the acromioclavicular joint with mild widening,which may represent a chronic sprain. This report has been dictated by Amrita Schuler M.D. (Resident). This report was approved by Amrita Schuler on 11/06/2015 11:25 AM . I, Dr. ALMAS GREEN M.D. have personally reviewed and interpreted thisexamination/study. This report was electronically signed by ALMAS GREEN M.D. on 11/06/201511:48 AM . Wai Lowry MD DIAGNOSTIC IMAGING O RDERABLES documented in this encounter Visit Diagnoses Diagnosis Pain in left shoulder Pain in joint, shoulder region documented in this encounter Care Teams Steam Box Tender Relationship Specialty Start Date End Date Blake Lindsey MD [address] [place] [address] PCP - General 05/20/16 documented as of this encounter
--- OUTSIDE RECORDS SUMMARY | 2024-07-29 17:23 | XMS_ITS | Encounter Summary ---
Author Organization [facility] Health Address [address] [facility] [place] [address] Care Team Providers Care Spray Blender Name Role Phone Blake Lindsey MD Primary Care Provider Encounter Details Date Type Department Care Team (Late st Contact Info) Description 07/16/2015 Hospital Outpatient Visit [facility] [address] [place] [id number] Blake Lindsey MD [address] [place] [address] Discharge Disposition: Home or Self Care Social [...] on filedocumented in this encounter Care Teams Spray Blender Relationship Specialty Start Date End Date Blake Lindsey MD [address] [place] [address] PCP - General 05/20/16 documented as of this encounter
--- OUTSIDE RECORDS SUMMARY | 2024-07-29 17:23 | XMS_ITS | Encounter Summary ---
Author Organization [facility] Health Address [address] [place] [address] Care Team Providers Care Condenser Setter Name Role Phone Blake Lindsey MD Primary Care Provider [phone] Encounter Details Date Type Department Care Team (Latest Contact Info) Description 10/30/2015 [facility] [address] [facility] [place] [address] Reji Virk MD [address] [place], [place] [phone] Discharge Disposition: Home or Self Care Social [...] Name Priority Date/Time Associated Diagnosis Comments XR THORACIC SPINE 2VW Routine 10/30/2015 11:06 AM CDT XR CERVICAL SPINE 2 OR 3VW Routine 10/30/2015 11:05 AM CDT documented in this encounter Results * XR THORACIC SPINE 2VW (10/30/2015 11:06 AM CDT) Anatomical Region Laterality Modality Spine Other Impressions 10/30/2015 2:32 PM CDT Impression: Unchanged posterior fusion extending from C5 through T12 spanning an unchanged T6 burst fracture. This report was electronically signed by ALICIA GREEN M.D. ??on 10/30/2015 2:32 PM . Narrative 10/30/2015 2:32 PM CDT Examination: 1. Cervical spine 2 or 3 views 2. Thoracic spine 2 views History: Cervical and thoracic spondylosis Findings: AP and lateral views of the cervical spine were performed with comparison made to 07/31/2015. Straightening of the cervical lordosis is unchanged. No prevertebral soft tissue swelling is noted. Posterior fusion extends from C5 through T12. Disc spaces above the fused levels are preserved. Posterior cerclage wires again noted. AP and lateral views of the thoracic spine were performed with comparison made to 07/31/2015. Posterior fusion extending into T12 is again noted. No evidence of instrumentation failure is noted. Alignment is unchanged. There is a T6 burst fracture with unchanged approximately 70 percent height loss. No new compression deformity is noted. Procedure Note Alicia Green MD - 10/30/2017 Examination: 1. Cervical spine 2 or 3 views 2. Thoracic spine 2 views History: Cervical and thoracic spondylosis Findings: AP and lateral views of the cervical spine were performed with comparisonmade to 07/31/2015. Straightening of the cervical lordosis is unchanged.No prevertebral soft tissue swelling is noted. Posterior fusion extendsfrom C5 through T12. Disc spaces above the fused levels are preserved. Posterior cerclage wires againnoted. AP and lateral views of the thoracic spine were performed with comparisonmade to 07/31/2015. Posterior fusion extending into T12 is again noted. Noevidence of instrumentation failure is noted. Alignment is unchanged.There is a T6 burst fracture with unchanged approximately 70 percent height loss. No new compressiondeformity is noted. IMPRESSION Impression: Unchanged posterior fusion extending from C5 through T12 spanning anunchanged T6 burst fracture. This report was electronically signed by ALICIA GREEN M.D. on10/30/2015 2:32 PM . Reji Virk MD DIAGNOSTIC IMAGING O RDERABLES * XR CERVICAL SPINE 2 OR 3VW (10/30/2015 11:05 AM CDT) Anatomical Region Laterality Modality Spine Other Impressions 10/30/2015 2:32 PM CDT Impression: Unchanged posterior fusion extending from C5 through T12 spanning an unchanged T6 burst fracture. This report was electronically signed by ALICIA GREEN M.D. ??on 10/30/2015 2:32 PM . Narrative 10/30/2015 2:32 PM CDT Examination: 1. Cervical spine 2 or 3 views 2. Thoracic spine 2 views History: Cervical and thoracic spondylosis Findings: AP and lateral views of the cervical spine were performed with comparison made to 07/31/2015. Straightening of the cervical lordosis is unchanged. No prevertebral soft tissue swelling is noted. Posterior fusion extends from C5 through T12. Disc spaces above the fused levels are preserved. Posterior cerclage wires again noted. AP and lateral views of the thoracic spine were performed with comparison made to 07/31/2015. Posterior fusion extending into T12 is again noted. No evidence of instrumentation failure is noted. Alignment is unchanged. There is a T6 burst fracture with unchanged approximately 70 percent height loss. No new compression deformity is noted. Procedure Note Alicia Green MD - 10/30/2017 Examination: 1. Cervical spine 2 or 3 views 2. Thoracic spine 2 views History: Cervical and thoracic spondylosis Findings: AP and lateral views of the cervical spine were performed with comparisonmade to 07/31/2015. Straightening of the cervical lordosis is unchanged.No prevertebral soft tissue swelling is noted. Posterior fusion extendsfrom C5 through T12. Disc spaces above the fused levels are preserved. Posterior cerclage wires againnoted. AP and lateral views of the thoracic spine were performed with comparisonmade to 07/31/2015. Posterior fusion extending into T12 is again noted. Noevidence of instrumentation failure is noted. Alignment is unchanged.There is a T6 burst fracture with unchanged approximately 70 percent height loss. No new compressiondeformity is noted. IMPRESSION Impression: Unchanged posterior fusion extending from C5 through T12 spanning anunchanged T6 burst fracture. This report was electronically signed by ALICIA GREEN M.D. on10/30/2015 2:32 PM . Reji Virk MD DIAGNOSTIC IMAGING O RDERABLES documented in this encounter Visit Diagnoses Diagnosis Encounter for follow-up examination after completed treatment for conditions other than malignant neoplasm documented in this encounter Care Teams Condenser Setter Relationship Specialty Start Date End Date Blake Lindsey MD [address] [place] [address] PCP - General 05/20/16 documented as of this encounter
--- OUTSIDE RECORDS SUMMARY | 2024-07-29 17:23 | XMS_ITS | Encounter Summary ---
Author Organization [facility] Health Address [address] [facility] [place] [address] Care Team Providers Care Datapower Consultant Name Role Phone Blake Lindsey MD Primary Care Provider [phone] Encounter Details Date Type Department Care Team (Latest Contact Info) Description 02/08/2014 Hospital Outpatient Visit [facility] [address] [place] [phone] Castillo Max MD [address] [place] [address] [address] [place] [id number] Discharge Disposition: Home or Self Care Social [...] Diagnosis Comments CBC W AUTO DIFFERENTIAL STAT 02/08/2014 12:52 PM CDT COMPREHENSIVE METABOLIC PANEL Timed 02/08/2014 12:52 PM CDT LDH BLOOD Timed 02/08/2014 12:52 PM CDT CBC W AUTO DIFFERENTIAL Timed 02/08/2014 12:52 PM CDT documented in this encounter Results * LDH BLOOD (02/08/2014 12:52 PM CDT) LDH Total 162 125 - 243 Units/L [facility] Blood specimen (specimen) BLOOD SPECIMEN / Unknown 02/08/2014 12:52 PM CDT 02/08/2014 1:01 PM CDT Castillo Max MD LAB - CHEMISTRY OR DERABLES Performing Organization Address City/State/[facility] Co de Phone Number [address] [phone] * (ABNORMAL) COMPREHENSIVE METABOLIC PANEL (02/08/2014 12:52 PM CDT) BUN 9 7 - 26 mg/dL [facility] Anion Gap 16 8 - 18 [facility] BUN/Creatinine Ratio 13 7 - 23 [facility] Osmolality Calculated 281 270 - 300 mOsm/kg [facility] Albumin/Globulin Ratio 1.3 1.1 - 2.3 [facility] Creatinine 0.7 0.6 - 1.2 mg/dL [facility] Sodium 144 136 - 145 mmol/L [facility] Potassium 3.9 3.5 - 4.5 mmol/L [facility] Chloride 108(H) 98 - 107 mmol/L [facility] CO2 24 22 - 29 mmol/L [facility] Glucose 94 70 - 115 mg/dL [facility] Calcium 9.8 8.4 - 10.2 mg/dL [facility] Protein Total 7.2 6.0 - 8.3 g/dL [facility] Albumin 4.1 3.4 - 5.0 g/dL [facility] Bilirubin Total 0.5 0.2 - 1.2 mg/dL [facility] Alkaline Phosphatase 102 40 - 150 Units/L [facility] ALT 11 0 - 55 Units/L [facility] AST 11 5 - 34 Units/L [facility] eGFR >60 >60 mL/min/1.7 3 m2 [facility] Blood specimen (specimen) BLOOD SPECIMEN / Unknown 02/08/2014 12:52 PM CDT 02/08/2014 1:01 PM CDT Castillo Max MD LAB - CHEMISTRY OR DERABLES Performing Organization Address City/State/[facility] Co de Phone Number [facility] [address] [phone] * (ABNORMAL) CBC W AUTO DIFFERENTIAL (02/08/2014 12:52 PM CDT) WBC 4.7 3.5 - 10.5 10? 3 /uL [facility] RBC 4.06 3.90 - 5.00 10? 6 /uL [facility] Hemoglobin 13.4 12.0 - 15.5 g/dL [facility] Hematocrit 38.9 35.0 - 45.0 % [facility] MCV 95.8 81.0 - 97.0 fL [facility] MCH 33.0 28.0 - 34.0 pg [facility] MCHC 34.4 32.0 - 36.0 g/dL [facility] Platelet Count 123(L) 150 - 400 10? 3 /uL [facility] RDW-SD 43.8 36.0 - 50.0 fL [facility] RDW-CV 12.7 11.2 - 14.8 % [facility] MPV 8.9(L) 9.3 - 12.8 fL [facility] Neutrophils % 63.6 35.0 - 70.0 % [facility] Lymphocytes % 24.2 19.7 - 55.1 % [facility] Monocytes % 9.3 3.0 - 15.0 % [facility] Eosinophils % 2.5 0.0 - 6.0 % [facility] Basophil % 0.2 0.0 - 1.5 % [facility] Neutrophils Absolute 3.0 1.6 - 7.0 10? 3 /uL [facility] Lymphocyte Absolute 1.1 0.8 - 2.9 10? 3 /uL [facility] Monocytes Absolute 0.44 0.14 - 0.66 10? 3 /uL [facility] Eosinophils Absolute 0.12 0.00 - 0.22 10? 3 /uL [facility] Basophils Absolute 0.01 0.00 - 0.06 10? 3 /uL [facility] Immature Granulocytes % 0.2 0.0 - 1.0 % [facility] Blood specimen (specimen) BLOOD SPECIMEN / Unknown 02/08/2014 12:52 PM CDT 02/08/2014 12:53 PM CDT Castillo Max MD LAB - HEMATOLOGY O ROSSI Performing Organization Address [facility] de Phone Number [facility] [address] [phone] * CBC W AUTO DIFFERENTIAL (02/08/2014 12:52 PM CDT) Blood specimen (specimen) BLOOD SPECIMEN / Unknown 02/08/2014 12:52 PM CDT Narrative [facility] - 02/08/2014 1:00 PM CDT The following orders were created for panel order CBC with Differential. Procedure ? Abnormality ? Status ? --------- ? ------ ? CBC WITH DIFFERENTIAL[[id number]] ? Abnormal ?Final result ? Please view results for these tests on the individual orders. Castillo Max MD LAB - HEMATOLOGY O ROSSI Performing Organization Address [facility] de Phone Number [facility] [address] [place] [address], [facility] documented in this encounter Visit Diagnoses Diagnosis Hodgkin's disease (HCC) Thrombocytopenia (HCC) Thrombocytopenia, unspecified documented in this encounter Care Teams Datapower Consultant Relationship Specialty Start Date End Date Blake Lindsey MD [address] [place] [address] PCP - General 05/20/16 documented as of this encounter
--- OUTSIDE RECORDS SUMMARY | 2024-07-29 17:23 | XMS_ITS | Encounter Summary ---
Author Organization [facility] Health Address [address] [place] [address] Care Team Providers Care Molasses Feed Mixer Name Role Phone Blake Lindsey MD Primary Care Provider [phone] Encounter Details Date Type Department Care Team (Late st Contact Info) Description 06/15/2014 Emergency Department Historic [facility] EMERGENCY DEPARTMENT [address] [place] [id number] Lori Foley MD [facility] [facility] [place] [address] Discharge Disposition: Home or Self Care Social [...] Sign Reading Time Taken Comments Blood Pressure 117/82 06/15/2014 2:30 PM PHARMACIST ASSISTANT Pulse 78 06/15/2014 2:30 PM PHARMACIST ASSISTANT Temperature 36.7 ??C (98 ??F) 06/15/2014 2:30 PM PHARMACIST ASSISTANT Respiratory Rate 17 06/15/2014 2:30 PM PHARMACIST ASSISTANT Oxygen Saturation 99% 06/15/2014 2:30 PM PHARMACIST ASSISTANT Inhaled Oxygen Concentration - - Weight - - Height - - Body Mass Index - - documented in this encounter Consult Notes * Leonel Tanner MD - 06/15/2014 8:03 PM CST Consults Signed by Leonel Tanner MD on 06/15/2014 11:19 PM Author: Leonel Tanner MD Service: (none) Author Type: Resident Date of Service: 06/15/2014 8:03 PM Filed: 06/15/2014 11:19 PM Note Type: Consults Status: Signed Compression Molding Machine Tender: Leonel Tanner MD (Resident) Cosigner: Reji Virk MD at 06/16/2014 10:27 AM [facility] Orthopaedic Spine Consult Lakeisha Alejandra 43 y.o. female Date: 06/15/2014 Chief Complaint: progressive neck pain HPI: History is obtained from the patient Patient is a 43 y.o. female with PMH of hodgkins lymphoma previously treated by chemotherapy as well as requiring beeing instrumented C5 down to T12 with stabilization and fusion d/t metastatic spinedisease with instability. Over the last 8 weeks, patient has been having increasing neck pain as well as increasing weakness of the left UE. During a regular follow up with Heme/Onc, MRI was obtainedwhich was concerning for abscess. Dr. Max (heme/onc) contacted office of Dr. Virk and Dr. Live ([facility]. Virk offered clinic visit early today, however patient was unable to make that due to limited access to car. Plan was made for follow up upcoming Wednesday. Shortly thereafter, patient received a phone call from [facility] instructing patient to come to ED to be evaluated. Patient denies any acute changes in sensation or motion. Does report 2 falls one 3 months ago and other 1.5 months ago. No difficulty with bowel/bladder control. Has constipation due to narcotic use. PMHx: Past Medical History Diagnosis Date ??? Cancer dx 09/30/12 ??? Asthma ??? Blood circulation, collateral ??? Anxiety ??? Osteoporosis ??? Mental disorder Claustrophobia ??? Allergy pcn, Codeine, Epi ??? Anemia, unspecified 02/06/2013 ??? GERD (gastroesophageal reflux disease) 07/13/2013 ??? Hypertension PSHx: Past Surgical History Procedure Laterality Date ??? Pr femur/knee surg unlisted both knees ??? Biopsy ??? Hx spinal fusion ??? Lalita tooth extraction Social Hx: History Substance Use Topics ??? Smoking status: Former Smoker -- 1.00 packs/day for 10 years Types: Cigarettes Quit date: 11/30/1997 ??? Smokeless tobacco: Never Used ??? Alcohol Use: 0.5 oz/week 1 drink(s) per week Comment: I haven't had anything since I started chemo Family Hx: family history includes Cancer in her father; Diabetes in her mother; Heart Disease in her father and mother; Hypertension in her mother. Allergies: Allergies Allergen Reactions ??? Pcn [Penicillins] Rash ??? Codeine Other (See Comments) Passes out ??? Epinephrine Hcl Other (See Comments) When injected in mouth for dental procedures, makes extremities go numb Medications: No current facility-administered medications for this encounter. Current Outpatient Prescriptions Medication ??? fentaNYL (DURAGESIC) 50 MCG/HR patch ? ? Multiple Minerals-Vitamins (CALCIUM & VIT D3 BONE HEALTH PO) ??? VENTOLIN HFA 108 (90 BASE) MCG/ACT inhaler ??? paroxetine (PAXIL) 10 MG tablet ??? diazepam (VALIUM) 10 MG tablet ??? ALPRAZolam (XANAX) 0.25 MG Oral tablet ??? ranitidine (ZANTAC) 150 MG Oral tablet ??? senna-docusate (PERICOLACE) 8.6-50 MG Oral per tablet ??? oxycodone-acetaminophen (PERCOCET) 10-325 MG Oral per tablet ??? oxycodone-acetaminophen (PERCOCET) 10-325 MG PO per tablet Review of Systems: Pertinent items are noted in HPI. Vitals: BP 117/82 Pulse 78 Temp(Src) 98 ??F (36.7 ??C) (Oral) Resp 17 SpO2 99% Physical Exam: General appearance: healthy, alert, no distress Neck: C-collar/[place] J: absent, well healed midline scar. Tenderness to palpation: present, centered over the sub-cutaneous just left of midline scar in the cervical region. ROM: diminished range of motion. No pain with rotation Back: Tenderness to palpation: absent, ROM: diminished range of motion due to fusion Step offs? No. Rectal/Perineal: not assesse Perianal/Perineal sensation is intact. Left Upper Extremity: Motor: 5/5 gauge and weigh machine adjuster, 5/5 small finger abduction, 4-/5 wrist extension, 4-/5 biceps, 4-/5 Triceps function. Sensory: intact to light touch. Ruiz's sign is negative. Right Upper Extremity: Motor: 5/5 gauge and weigh machine adjuster, 5/5 small finger abduction, 5/5 wrist extension, 4+/5 biceps, 4+/5 Triceps function. Sensory: intact to light touch. Ruiz's sign is negative. Bilateral Lower Extremity: Motor: intact EHL/AT/GSC/Quad/Hamstrings/Hip flexors. 4/5 EHL, 4/5 AT, 4/5 GSC, 4/5 Quad, 4/5 Hamstring, 3/5 Hip flexors. Sensation: intact to light touch distally Clonus: absent, unsustained Reflexes: Biceps: Symmetric bilaterally Triceps: Symmetric bilaterally BR: Unable to elicit Knee Jerk: Symmetric bilaterally Achilles: Symmetric bilaterally Babinski: Unable to elicit Imaging: MRI scan from the 06/12 reviewed and demonstrates enhancing fluid collection posterior to spinous processes of C6-T1. Comparing these findings to MRI C-spine done on 03/15/14 (w/o contrast) fluid collection appears unchanged in size, though exam limited due to lack of contrast. New sub-cutaneous mass noted on the MRI which is isointense to fat with some striations. Labs: Lab Results Component Value Date WBC 6.7 06/15/2014 WBC 5.2 03/15/2014 HGB 13.0 06/15/2014 HGB 13.1 11/23/2013 HCT 38.2 06/15/2014 HCT 40.3 03/15/2014 HCT 38.5 11/23/2013 MCV 97.9* 06/15/2014 MCV 99.6 11/23/2013 PLT 138* 06/15/2014 PLT 159 03/15/2014 Lab Results Component Value Date INR 1.1 06/15/2014 INR 1.0 03/15/2014 PT 14.1 06/15/2014 PT 10.8 03/15/2014 Lab Results Component Value Date CRP 0.7* 06/15/2014 Lab Results Component Value Date ESR 16 06/15/2014 ESR 68* 11/03/2012 Assesment and Plan: 43 y.o. female with increasing neck pain and sub-cutaneous mass. Possible increase in LUE weakness 1. MRI findings likely not infectious in origin as has been present unchanged over last 3 months. Patient's infectious labs are normal. 2. Will require work-up for weakness as well as sub-cutaneous mass. Discussed admission to hospital, however patient would prefer returning for clinic visit which is already set up for upcoming Wednesday at 8:30am 3. Stressed the importance of returning to ED should any of the neurological findings progress. Patient stated understanding. 4. Activity: As tolerated 5. Pain control per ED Leonel Tanner MD 06/15/2014 8:04 PM MACIST ASSISTANT documented in this encounter Plan of Treatment Not on file documented as of this encounter Procedures Procedure Name Priority Date/Time Associated Diagnosis Comments CBC W AUTO DIFFERENTIAL STAT 06/15/2014 7:47 PM PHARMACIST ASSISTANT PTT [facility] STAT 06/15/2014 7:30 PM PHARMACIST ASSISTANT PT-INR [facility] STAT 06/15/2014 7:30 PM PHARMACIST ASSISTANT C-REACTIVE PROTEIN Routine 06/15/2014 7: 30 PM PHARMACIST ASSISTANT ERYTHROCYTE SEDIMENTATION RATE Routine 06/15/2014 7:30 PM PHARMACIST ASSISTANT CBC W AUTO DIFFERENTIAL STAT 06/15/2014 7:30 PM PHARMACIST ASSISTANT BASIC METABOLIC PANEL (CALCIUM TOTAL) STAT 06/15/2014 7:30 PM PHARMACIST ASSISTANT documented in this encounter Results * CBC W AUTO DIFFERENTIAL (06/15/2014 7:47 PM PHARMACIST ASSISTANT) Blood specimen (specimen) BLOOD SPECIMEN / Unknown 06/15/2014 7:47 PM PHARMACIST ASSISTANT Narrative [facility] - 06/15/2014 7:47 PM PHARMACIST ASSISTANT The following orders were created for panel order CBC w Differential. Procedure ? Abnormality ? Status ? --------- ? ------ ? CBC WITH DIFFERENTIAL[[id number]] ? Abnormal ?Final result ? Please view results for these tests on the individual orders. Lori Foley MD LAB - HEMATOLOGY ORD ERABLES Performing Organization Address [facility] Co de Phone Number [facility] [address] * ERYTHROCYTE SEDIMENTATION RATE (06/15/2014 7:30 PM PHARMACIST ASSISTANT) [facility] Erythrocyte Sedimentation Rate Westergren 16 0 - 20 MM/HR [facility] Blood specimen (specimen) BLOOD SPECIMEN / Unknown 06/15/2014 7:30 PM PHARMACIST ASSISTANT 06/15/2014 7:37 PM PHARMACIST ASSISTANT Lori Foley MD LAB - HEMATOLOGY ORD ERABLES Performing Organization Address [facility] Co de Phone Number [facility] [address] [phone] * (ABNORMAL) BASIC METABOLIC PANEL (CALCIUM TOTAL) (06/15/2014 7:30 PM PHARMACIST ASSISTANT) [facility] BUN 11 7 - 26 mg/dL [facility] Creatinine 0.7 0.6 - 1.2 mg/dL [facility] Sodium 143 136 - 145 mmol/L [facility] Potassium 3.6 3.5 - 4.5 mmol/L [facility] Chloride 110(H) 98 - 107 mmol/L [facility] CO2 24 22 - 29 mmol/L [facility] Glucose 128(H) 70 - 115 mg/dL [facility] Calcium 9.3 8.4 - 10.2 mg/dL [facility] Anion Gap 13 8 - 18 [facility] BUN/Creatinine Ratio 16 7 - 23 [facility] Osmolality Calculated 282 270 - 300 mOsm/kg [facility] eGFR >60 >60 mL/min/1.7 3 m2 [facility] Blood specimen (specimen) BLOOD SPECIMEN / Unknown 06/15/2014 7:30 PM PHARMACIST ASSISTANT 06/15/2014 7:37 PM PHARMACIST ASSISTANT Lori Foley MD LAB - CHEMISTRY [facility] Performing Organization Address City/[facility]/ZIP Co de Phone Number [address] [phone] * (ABNORMAL) C-REACTIVE PROTEIN (06/15/2014 7:30 PM PHARMACIST ASSISTANT) C-Reactive Protein 0.7(H) <=0.5 mg/dL [facility] Blood specimen (specimen) BLOOD SPECIMEN / Unknown 06/15/2014 7:30 PM PHARMACIST ASSISTANT 06/15/2014 7:36 PM PHARMACIST ASSISTANT Lori Foley MD LAB - CHEMISTRY [facility] [address] [phone] * PTT [facility] (06/15/2014 7:30 PM PHARMACIST ASSISTANT) APTT 36.2 23.0 - 38.4 Seconds [facility] Comment:Suggested therapeuti c range for full dose I.V. heparin therapy for venous thromboembolism is 66.0-91.0 seconds. Blood specimen (specimen) BLOOD SPECIMEN / Unknown 06/15/2014 7:30 PM PHARMACIST ASSISTANT 06/15/2014 7:37 PM PHARMACIST ASSISTANT Narrative [facility] - 06/15/2014 7:59 PM PHARMACIST ASSISTANT Is patient on Heparin, Argatroban or Dabigatran?->N Lori Foley MD LAB - COAGULATION OR DERABLES Performing Organization Address [facility] Co de Phone Number [address] [phone] * PT-INR [facility] (06/15/2014 7:30 PM PHARMACIST ASSISTANT) PT 14.1 12.1 - 14.8 Seconds [facility] INR 1.1 See Comment [facility] Comment: Suggested therapeutic range for low-intensity coumadin therapy for venous thromboembolism prophylaxis is an INR of 2.0-3.0. ??For high risk patients (Mitral Valve Prosthesis, Atrial Fibrillation, history of TIA/stroke), suggested prophylactic therapeutic range is an INR of 2.5-3.5. Blood specimen (specimen) BLOOD SPECIMEN / Unknown 06/15/2014 7:30 PM PHARMACIST ASSISTANT 06/15/2014 7:37 PM PHARMACIST ASSISTANT Narrative [facility] - 06/15/2014 7:59 PM PHARMACIST ASSISTANT Is patient on Heparin, Argatroban or Dabigatran?->N Lori Foley MD LAB - COAGULATION OR DERABLES Performing Organization Address [facility] Co de Phone Number [address] [phone] * (ABNORMAL) CBC W AUTO DIFFERENTIAL (06/15/2014 7:30 PM PHARMACIST ASSISTANT) WBC 6.7 3.5 - 10.5 10? 3 /uL [facility] RBC 3.90 3.90 - 5.00 10? 6 /uL [facility] Hemoglobin 13.0 12.0 - 15.5 g/dL [facility] Hematocrit 38.2 35.0 - 45.0 % [facility] MCV 97.9(H) 81.0 - 97.0 fL [facility] MCH 33.3 28.0 - 34.0 pg [facility] MCHC 34.0 32.0 - 36.0 g/dL [facility] Platelet Count 138(L) 150 - 400 10? 3 /uL [facility] RDW-SD 46.5 36.0 - 50.0 fL [facility] RDW-CV 12.9 11.2 - 14.8 % [facility] MPV 8.8(L) 9.3 - 12.8 fL [facility] nRBC Absolute 0.00 0 10? 3 /uL [facility] nRBC Auto 0.0 0 /100 WBC [facility] Neutrophils % 55.2 35.0 - 70.0 % [facility] Lymphocytes % 34.4 19.7 - 55.1 % [facility] Monocytes % 7.0 3.0 - 15.0 % [facility] Eosinophils % 3.0 0.0 - 6.0 % [facility] Basophil % 0.3 0.0 - 1.5 % [facility] Neutrophils Absolute 3.7 1.6 - 7.0 10? 3 /uL [facility] Lymphocyte Absolute 2.3 0.8 - 2.9 10? 3 /uL [facility] Monocytes Absolute 0.47 0.14 - 0.66 10? 3 /uL [facility] Eosinophils Absolute 0.20 0.00 - 0.22 10? 3 /uL [facility] Basophils Absolute 0.02 0.00 - 0.06 10? 3 /uL [facility] Immature Granulocytes % 0.1 0.0 - 1.0 % [facility] Blood specimen (specimen) BLOOD SPECIMEN / Unknown 06/15/2014 7:30 PM PHARMACIST ASSISTANT 06/15/2014 7:37 PM PHARMACIST ASSISTANT Lori Foley MD LAB - HEMATOLOGY ORD ERABLES [facility] [address] [phone] documented in this encounter Visit Diagnoses Diagnosis Cervicalgia documented in this encounter Care Teams Molasses Feed Mixer Relationship Specialty Start Date End Date Blake Lindsey MD [address] [place] [address] PCP - General 05/20/16 documented as of this encounter
--- OUTSIDE RECORDS SUMMARY | 2024-07-29 17:23 | XMS_ITS | Encounter Summary ---
Author Organization [facility] Health Address [address] [facility] [place] [address] Care Team Providers Care Internal Consultant Name Role Phone Blake Lindsey MD Primary Care Provider Encounter Details Date Type Department Care Team (Late st Contact Info) Description 06/17/2016 [facility] Out[facility] Orthoped[facility] [address] [place] [phone] Urban Guzman MD [address] [place] [address] [place] [address] Discharge Disposition: Home or Self Care Social [...] on filedocumented in this encounter Care Teams Internal Consultant Relationship Specialty Start Date End Date Blake Lindsey MD [address] [place] [address] PCP - General 05/20/16 documented as of this encounter
--- OUTSIDE RECORDS SUMMARY | 2024-07-29 17:23 | XMS_ITS | Encounter Summary ---
Author Organization [facility] Health Address [address] [facility] [place] [address] Care Team Providers Care Supervisory Forester Name Role Phone Blake Lindsey MD Primary Care Provider [phone] Encounter Details Date Type Department Care Team (Late st Contact Info) Description 01/10/2016 Hospital Outpatient Visit [facility] [address] [place] [id number] Casimiro Loyola MD [address] [place] [address] Discharge Disposition: Home or Self Care Social [...] Name Priority Date/Time Associated Diagnosis Comments ECHO COMPLETE Routine 01/10/2016 12:00 AM CDT documented in this encounter Results * ECHO W DOPPLER AND COLOR FLOW (01/10/2016 12:00 AM CDT) Anatomical Region Laterality Modality Other 01/10/2016 Casimiro Loyola MD ECHOCARDIOGRAPH Y RADIANT documented in this encounter Visit Diagnoses Diagnosis Diastolic congestive heart failure (HCC) Unspecified diastolic heart failure documented in this encounter Care Teams Supervisory Forester Relationship Specialty Start Date End Date Blake Lindsey MD [address] [place] [address] PCP - General 05/20/16 documented as of this encounter
--- OUTSIDE RECORDS SUMMARY | 2024-07-29 17:23 | XMS_ITS | Encounter Summary ---
Author Organization [facility] Address [address] [place] [address] Care Team Providers Care Inventory Controller Name Role Phone Blake Lindsey MD Primary Care Provider [phone] Encounter Details Date Type Department Care Team (Latest Contact Info) Description 02/18/2017 Emergency Department Historic [facility] EMERGENCY DEPARTMENT [address] [place] [id number] Saul Decker MD [address] [place] [address] Discharge Disposition: Home or Self Care Social [...] Sign Reading Time Taken Comments Blood Pressure 121/67 02/18/2017 10:30 PM CDT Pulse 101 02/18/2017 10:30 PM CDT Temperature 36.3 ??C (97.3 ??F) 02/18/2017 4:04 PM CD T Respiratory Rate 25 02/18/2017 10:30 PM CDT Oxygen Saturation 98% 02/18/2017 10:30 PM CDT Inhaled Oxygen Concentration - - Weight 102.1 kg (225 lb) 02/18/2017 4:04 PM CDT Height 160 cm (5' 3 ) 02/18/2017 4:04 PM CDT Body Mass Index 39.86 02/18/2017 4:04 PM CDT documented in this encounter ED Notes * Siri Abbasi MD - 02/18/2017 10:27 PM CDT ED Provider Notes Signed by Siri Abbasi MD on 02/19/2017 12:52 AM Author: Siri Abbasi MD Service: Emergency Author Type: Resident Date of Service: 02/18/2017 10:27 PM Filed: 02/19/2017 12:52 AM Note Type: ED Provider Notes Status: Signed Ux Researcher: Siri Abbasi MD (Resident) Cosigner: Saul Enriquez MD at 02/19/2017 10:04 AM Emergency Department Clinical Course Patient Lakeisha Alejandra 46 [address] See Dr. Decker's note for full details of HPI, past history, meds/allergies, ROS. Notable findingsof work-up are included her, see EMR for complete lab and imaging results. Briefly, this is a 46 y.o. female presenting with shortness of breath that was worse after steppingoutside into the hot air. BP 121/67 Pulse 101 Temp 97.3 ??F (36.3 ??C) (Oral) Resp 25 Ht 5' 3 (1.6 m) Wt 225 lb (102.1 kg) SpO2 98% Comment: on RA BMI 39.86 kg/m2 ED Course (see EMR for full labs/imaging, pertinents below): Patient D dimer not grossly positive. Trop negative x2. CXR negative. Patient maintaining O2 sat > 94% on RA ED Final Diagnosis and Discharge information 1. Shortness of breath Scripts ED Discharge Orders None Follow-up Follow-up Information Follow up with Blake Lindsey In 3 days. Specialty: Family Medicine Contact information: [address] [place] [id number] Dispo: Discharge Siri Abbasi MD Resident 02/19/17 0052 * Saul Decker MD - 02/18/2017 8:52 PM CDT ED Provider Notes Signed by Saul Enriquez MD on 02/18/2017 11:48 PM Author: Saul Enriquez MD Service: Emergency Author Type: Physician Date of Service: 02/18/2017 8:52 PM Filed: 02/18/2017 11:48 PM Note Type: ED Provider Notes Status: Signed Ux Researcher: Saul Enriquez MD (Physician) ED ATTENDING NOTE History: Lakeisha Alejandra is a 46 y.o. female with an extensive past medical history including Hodgkins lymphoma presenting to the ED c/o increasing SOB and weakness since this morning that worsened with ambulation. Associated symptoms include frequent urination, diaphoresis, pale (per ), chills, light headed. Denies chest pain, cough, fever, n/v/d. Pt has no other complaints at this time. Pt takes 20mg oxycodone every 4-6 hours Past Medical History: Diagnosis Date ??? Activity intolerance sob with [...] ??? Echocardiogram findings abnormal, [facility] diagnosis [facility] ??? GERD (gastroesophageal reflux disease) 07/13/2013 ??? Mental disorder Claustrophobia ??? Osteoporosis ??? Patellofemoral arthritis of right knee 09/09/2016 ??? Radiation chemo only, last time ??? Sleep apnea central sleep apnea, cpap Past Surgical History: Procedure Laterality Date ??? BIOPSY ??? HX BACK SURGERY ??? HX SPINAL FUSION ??? MI FEMUR/KNEE [...] once a month ??? Drug use: Yes Special: Marijuana Comment: 'a pinch in the morning and a pinch at night' ??? Sexual activity: Yes Partners: Male Other Topics Concern ??? Not on file Social History Narrative Review of Systems: (+) positive All systems negative except as marked. Constitutional: +Weakness, diaphoresis, chills Negative for fever HENT: Negative for congestion, sore throat. Eyes: Negative for visual changes Respiratory: +SOB, Negative for cough Cardiovascular: Negative for chest pain, palpitations Gastrointestinal: Negative abdominal pain, nausea, vomiting, diarrhea Genitourinary: Negative for difficulty urinating, dysuria Musculoskeletal: Negative for neck pain, back pain Skin: Negative for rash Neurological: Negative for AREVALO, dizziness, numbness, tingling Psychiatric: Negative for SI, hallucinations Vitals: 02/18/17 1604 02/18/17 2100 02/18/17 2107 02/18/17 2200 BP: (!) 159/102 118/87 127/84 BP Location: Right arm Patient Position: Sitting Pulse: 87 100 99 Resp: 16 10 Temp: 97.3 ??F (36.3 ??C) TempSrc: Oral SpO2: 95% 96% 96% 98% Weight: 225 lb (102.1 kg) Height: 5' 3 (1.6 m) Exam: Constitutional: morbidly obese, adentulous, well developed, well nourished, no acute distress HENT: atraumatic, mildly dry oral mucosa, conjunctiva normal, sclarea non icteric Eyes: no injection, no discharge Neck: supple, trachea midline Cardiovascular: regular rate and rhythm, no murmur Chest: clear to auscultation bilaterally, no wheezes, no respiratory distress Abdomen: obese, soft, non-tender, non-distended Extremities: trace edema or deformities Skin: Midline scar on back that is well healed, warm, dry, no lesions Neurological: awake, alert&Ox4, PERRL, EOMi, moving all extremities, no focal motor deficits , gait normal Psychiatric: calm, cooperative, no hallucinations MDM: Dx: dyspnea on exertion DDx: Asthma exacerbation, arrhythmia, metabolic, other Plan: labs, CXR, EKG ED Course: The patient's Oxygen Saturation Monitor was interpreted by me. The reading was 91%. The patient wason RA at the time of the reading. This is interpreted as normal. I informed Dr. Lopez of all medical findings, clinical impression, and patients current conditions. Plan is to likely discharge. Dr. Lopez agrees to follow up on reassessment and disposition. EKG Interpretation: Interpreted by me SR no ALLI/D Results: Labs Reviewed COMPREHENSIVE METABOLIC PANEL - Abnormal; Notable for the following: Result Value BUN 6 (*) Glucose 147 (*) Calcium 10.3 (*) ALT 170 (*) AST 155 (*) A/G Ratio 0.9 (*) All other components within normal limits URINALYSIS COMPLETE - Abnormal; Notable for the following: pH UA 8.5 (*) Protein UA Trace (*) Blood UA Trace (*) Mucous UA Occasional (*) All other components within normal limits D-DIMER,QUANTITATIVE - Abnormal; Notable for the following: D-Dimer, Quantitative 0.67 (*) All other components within normal limits ACCUCHECK GLUCOSE - Abnormal; Notable for the following: Glucose, Fingerstick 131 (*) All other components within normal limits CBC WITH DIFFERENTIAL - Abnormal; Notable for the following: WBC 10.9 (*) RBC 5.02 (*) Hemoglobin 16.5 (*) Hematocrit 46.7 (*) MPV 8.6 (*) Neutrophil % 77.4 (*) Lymphocytes % 17.6 (*) Neutrophil Abs 8.5 (*) All other components within normal limits TROPONIN I - Normal TROPONIN I - Normal POCT GLUCOSE - Normal CBC W/ DIFFERENTIAL Narrative: The following orders were created for panel order CBC w Differential. Procedure Abnormality Status --------- ------ CBC WITH DIFFERENTIAL[[id number]] Abnormal Final result Please view results for these tests on the individual orders. XR Chest 1 Vw (Results Pending) Consult No Procedure done at this time No Ultrasound done at this time No CRITICAL CARE IN THE ED No Orders and Medicine administered during this encounter: Orders Placed This Encounter Procedures ??? XR Chest 1 Vw ??? CBC w Differential ??? Comprehensive Metabolic Panel (w/eGFR) ??? Basic Metabolic Panel ??? URINALYSIS COMPLETE ??? Troponin I ??? D-dimer, Quantitative ??? Troponin I ??? POCT Glucose ??? Accucheck glucose ??? EKG 12 lead ??? Saline lock IV Medications aspirin chewable tablet 324 mg (324 mg Oral Given 02/18/171858) HYDROmorphone (DILAUDID) injection 1 mg (1 mg Intravenous Given 02/18/172122) Clinical Impression: No diagnosis found. Scripts: ED Discharge Orders None Disposition: pending Follow-up: By signing my name below, IRhonda, attest that this documentation has been prepared under the direction and in the presence of Dr. Decker. Signed: Link Torres. Date: 02/18/2017. Time:8:52 PM. I, Dr. Decker, personally performed the services described in this documentation. All medical record entries made by the scribe were at my direction and in my presence. I have reviewed the chart andagree that the record reflects my personal performance is and is accurate and complete. Electronically Signed: Dr. Decker. Saul Enriquez MD 02/18/17 8050 documented in this encounter Plan of Treatment Not on file documented as of this encounter Procedures Procedure Name Priority Date/Time Associated Diagnosis Comments TROPONIN I STAT 02/18/2017 9:22 PM CDT D-DIMER STAT 02/18/2017 9:22 PM CDT GLUCOSE - POINT OF CARE (AMB) [facility] Routine 02/18/2017 8:34 PM CDT GLUCOSE - POINT OF CARE (AMB) SLU Routine 02/18/2017 8:34 PM CDT URINALYSIS W/MICROSCOPIC NO CULTURE STAT 02/18/2017 7:04 PM CDT TROPONIN I STAT 02/18/2017 4:58 PM CDT XR CHEST 1VW STAT 02/18/2017 4:46 PM CDT CBC W AUTO DIFFERENTIAL STAT 02/18/2017 4:28 PM CDT CBC W AUTO DIFFERENTIAL STAT 02/18/2017 4:28 PM CDT COMPREHENSIVE METABOLIC PANEL STAT 02/18/2017 4:28 PM CDT GLUCOSE ACCUCHECK Routine 02/18/2017 4:0 6 PM CDT EKG 12-LEAD Routine 02/18/2017 12:00 AM CDT documented in this encounter Results * TROPONIN I (02/18/2017 9:22 PM CDT) [facility] Troponin I <0.010 <0.032 ng/mL [facility] Blood specimen (specimen) BLOOD SPECIMEN / Unknown 02/18/2017 9:22 PM CDT 02/18/2017 9:34 PM CDT Saul Decker MD LAB - CHEMISTRY CHRISTOPHER DE LA G[facility] Organization Address City/State/ZIP Co de Phone Number [address] [phone] * (ABNORMAL) D-DIMER (02/18/2017 9:22 PM CDT) Pathologist [facility] D-Dimer Quantitative 0.67(H) <=0.50 mcg/mL FEU [facility] Comment: In the absence of clinical symptoms, [...] - COAGULATION OR DERABLES Performing Organization Address [facility]/ZIP Co de Phone Number [address] [phone] * GLUCOSE - POINT OF CARE (AMB) U (02/18/2017 8:34 PM CDT) Dylan Pollack MD LAB - POINT OF CARE ORDERABLES Performing Organization Address [facility]/State/ZIP Co de Phone Number [facility] RAD[facility]OLOG[facility] * GLUCOSE - POINT OF CARE (AMB) U (02/18/2017 8:34 PM CDT) Glucose, Fingerstick see lab results [facility] Capillary blood specimen (specimen) 02/18/2017 8:34 PM CDT Dylan Pollack MD LAB - POINT OF CARE ORDERABLES [facility] * (ABNORMAL) URINALYSIS W/MICROSCOPIC NO CULTURE (02/18/2017 7:04 PM CDT) Color UA Yellow Straw, Yellow, Colorless, Light Yellow [facility] Clarity UA Clear Clear [facility] Specific [place] UA 1.012 1.001 - 1.030 [facility] pH UA 8.5(H) 5.0 - 8.0 [facility] Protein UA Trace(A) <=20 mg/dL [facility] Glucose UA Negative Negative mg/dL [facility] Ketone UA Negative Negative mg/dL [facility] Bilirubin UA Negative Negative mg/dL [facility] Blood UA Trace(A) Negative [facility] Nitrite UA Negative Negative [facility] Leukocyte Esterase Negative Negative [facility] Urobilinogen UA <2.0 <2.0 mg/dL [facility] RBC UA 6 0 - 8 /HPF [facility] WBC UA 1 0 - 2 /HPF [facility] Bacteria UA Rare Rare, Occasional, None /HPF [facility] Squamous Epithelial Cells UA <1 0 - 1 /HPF [facility] Mucus UA Occasional( A) None /LPF [facility] Urine specimen (specimen) 02/18/2017 7:04 PM CDT 02/18/2017 7:04 PM CDT Gabi Arnett MD LAB - URINALYSIS ORD ERABLES [facility] [address] [place] [address] * TROPONIN I (02/18/2017 4:58 PM CDT) Troponin I <0.010 <0.032 ng/mL [facility] Blood specimen (specimen) BLOOD SPECIMEN / Unknown 02/18/2017 4:58 PM CDT 02/18/2017 7:04 PM CDT Narrative [facility] - 02/18/2017 7:26 PM CDT Add on Dylan Pollack MD LAB - CHEMISTRY CHRISTOPHER DE LA GARZA [place] [address] [address] [phone] * XR CHEST 1VW (02/18/2017 4:46 PM CDT) Anatomical Region Laterality Modality Chest Other Impressions 02/19/2017 8:18 AM CDT Impression: Minimal right middle lobe atelectasis and/or airspace disease. Report dictated by Tisha Godinez MD (resident). Dr. KATHERINE Muller M.D. have personally reviewed and interpreted this examination/study. This report was electronically signed by KATHERINE HO M.D. ??on 02/19/2017 8:18 AM . Narrative [...] fusion hardware is partially imaged. Procedure Note Katherine Ho MD - 10/29/2017 Exam: XR CHEST 1 [...] Report dictated by Tisha Godinez MD (resident). Dr. KATHERINE Muller M.D. have personally reviewed and interpreted thisexamination/study. This report was electronically signed by KATHERINE HO M.D. on 02/19/20178:18 AM . Dylan Pollack MD DIAGNOSTIC IMAGING O RDERABLES * (ABNORMAL) COMPREHENSIVE METABOLIC PANEL (02/18/2017 4:28 PM CDT) BUN 6(L) 7 - 26 mg/dL [facility] Creatinine 0.6 0.6 - 1.2 mg/dL [facility] Sodium 139 136 - 145 mmol/L [facility] Potassium 4.0 3.5 - 4.5 mmol/L [facility] Chloride 103 98 - 107 mmol/L [facility] CO2 24 22 - 29 mmol/L [facility] Glucose 147(H) 70 - 115 mg/dL [facility] Calcium 10.3(H) 8.4 - 10.2 mg/dL [facility] Protein Total 8.1 6.0 - 8.3 g/dL [facility] Albumin 3.9 3.4 - 5.0 g/dL [facility] Bilirubin Total 0.7 0.2 - 1.2 mg/dL [facility] Alkaline Phosphatase 119 40 - 150 Units/L [facility] ALT 170(H) 0 - 55 Units/L [facility] AST 155(H) 5 - 34 Units/L [facility] Anion Gap 16 8 - 18 [facility] BUN/Creatinine Ratio 10 7 - 23 [facility] Osmolality Calculated 288 270 - 300 mOsm/kg [facility] Albumin/Globulin Ratio 0.9(L) 1.1 - 2.3 [facility] eGFR >60 >60 mL/min/1.7 3 m2 [facility] Blood specimen (specimen) BLOOD SPECIMEN / Unknown 02/18/2017 4:28 PM CDT 02/18/2017 4:28 PM CDT Dylan Pollack MD LAB - CHEMISTRY [facility]RISTOPHER DE LA [facility] Organization Address City/State/ZIP Co de Phone Number [facility] [address] [place] [address] * CBC W AUTO DIFFERENTIAL (02/18/2017 4:28 PM CDT) Blood specimen (specimen) BLOOD SPECIMEN / Unknown 02/18/2017 4:28 PM CDT Narrative [facility] - 02/18/2017 4:32 PM CDT The following orders were created for panel order CBC w Differential. Procedure ? Abnormality ? Status ? --------- ? ------ ? CBC WITH DIFFERENTIAL[[id number]] ? Abnormal ?Final result ? Please view results for these tests on the individual orders. Dylan Pollack MD [facility] Performing Organization Address City/State/[facility] Co de Phone Number [facility] [address] * (ABNORMAL) CBC W AUTO DIFFERENTIAL (02/18/2017 4:28 PM CDT) WBC 10.9(H) 3.5 - 10.5 10? 3 /uL [facility] RBC 5.02(H) 3.90 - 5.00 10? 6 /uL [facility] Hemoglobin 16.5(H) 12.0 - 15.5 g/dL [facility] Hematocrit 46.7(H) 35.0 - 45.0 % [facility] MCV 93.0 81.0 - 97.0 fL [facility] MCH 32.9 28.0 - 34.0 pg [facility] MCHC 35.3 32.0 - 36.0 g/dL [facility] Platelet Count 194 150 - 400 10? 3 /uL [facility] RDW-SD 45.3 36.0 - 50.0 fL [facility] RDW-CV 13.3 11.2 - 14.8 % [facility] MPV 8.6(L) 9.3 - 12.8 fL [facility] nRBC Absolute 0.00 0 10? 3 /uL [facility] nRBC Auto 0.0 0 /100 WBC [facility] Neutrophils % 77.4(H) 35.0 - 70.0 % [facility] Lymphocytes % 17.6(L) 19.7 - 55.1 % [facility] Monocytes % 3.7 3.0 - 15.0 % [facility] Eosinophils % 1.0 0.0 - 6.0 % [facility] Basophil % 0.3 0.0 - 1.5 % [facility] Neutrophils Absolute 8.5(H) 1.6 - 7.0 10? 3 /uL [facility] Lymphocyte Absolute 1.9 0.8 - 2.9 10? 3 /uL [facility] Monocytes Absolute 0.40 0.14 - 0.66 10? 3 /uL [facility] Eosinophils Absolute 0.11 0.00 - 0.22 10? 3 /uL [facility] Basophils Absolute 0.03 0.00 - 0.06 10? 3 /uL [facility] Immature Granulocytes % 0.7 0.0 - 1.0 % [facility] Blood specimen (specimen) BLOOD SPECIMEN / Unknown 02/18/2017 4:28 PM CDT 02/18/2017 4:28 PM CDT Dylan Pollack MD LAB - HEMATOLOGY MELISSA YADAV [facility] [address] [phone] * (ABNORMAL) GLUCOSE ACCUCHECK (02/18/2017 4:06 PM CDT) Glucose, Fingerstick 131(H) 70-115mg/d L mg/dL [facility] RAL (BEAKER) Comment:Chicken Fancier: ZAKI GOMEZ 02/18/2017 4:06 PM CDT Castillo Hernandez MD LAB - CHEMISTRY CHRISTOPHER DE LA GARZA [facility] RALS (BEAKER) * EKG 12-LEAD (02/18/2017 12:00 AM CDT) EKG [facility] Comment: Exam Date/Time: ?? Feb 18 2017 16:11:34 Test Reason : chest pressure Blood Pressure : / mmHG Vent. Rate : 074 BPM ? Atrial Rate : 074 BPM ?? P-R Int : 128 ms ?QRS Dur : 086 ms ?QT Int : 402 ms ? P-R-T Axes : 033 028 062 degrees ?? QTc Int : 446 ms Normal sinus rhythm Minor ??Nonspecific T wave abnormality Otherwise normal ECG When compared with ECG of 19-FEB-2015 10:40, Heart rate has decreased by 18 bpm Confirmed by DAVID WILLAMS, P ([id number]), advertising editor Ki Miller ([id number]) on 02/22/2017 12:23:38 PM Referred By: REFERRING NO ? Confirmed By:Terri HERNANDEZ MD 02/18/2017 Dylan Pollack MD ECG ORDERABLES [facility] documented in this encounter Visit Diagnoses Diagnosis Shortness of breath documented in this encounter Care Teams Inventory Controller Relationship Specialty Start Date End Date Blake Lindsey MD [address] [place] [address] PCP - General 05/20/16 documented as of this encounter
--- OUTSIDE RECORDS SUMMARY | 2024-07-29 17:23 | XMS_ITS | Encounter Summary ---
Author Organization [facility] Health Address [address] [place] [address] Care Team Providers Care Hand Compositor Name Role Phone Blake Lindsey MD Primary Care Provider [phone] Encounter Details Date Type Department Care Team (Late st Contact Info) Description 03/25/2015 Anesthesia Historic Visit [facility] [address] [place] [phone] Social History Tobacco Use Types Packs/Day Years Used Date Smoking Tobacco: Never Assessed Sex and Gender Information Value Date Recorded Sex Assigned at Female 05/06/2024 9:07 AM CDT Gender Identity Female 05/06/2024 9:07 AM CDT Sexual Orientation Straight 05/06/2024 9: 07 AM CDT documented as of this encounter Last Filed Vital Signs Vital Sign Reading Time Taken Comments Blood Pressure - - Pulse 102 03/25/2015 3:55 PM CDT Temperature - - Respiratory Rate 16 03/25/2015 3:55 PM CDT Oxygen Saturation - - Inhaled Oxygen Concentration - - Weight - - Height - - Body Mass Index - - documented in this encounter Plan of Treatment Not on file documented as of this encounter Visit Diagnoses Not on filedocumented in this encounter Care Teams Hand Compositor Relationship Specialty Start Date End Date Blake Lindsey MD [address] [place] [address] PCP - General 05/20/16 documented as of this encounter
--- OUTSIDE RECORDS SUMMARY | 2024-07-29 17:23 | XMS_ITS | Encounter Summary ---
Author Organization [facility] Health Address [address] [place] [address] Care Team Providers Care Intelligence Clerk Name Role Phone Blake Lindsey MD Primary Care Provider [phone] Encounter Details Date Type Department Care Team (Latest Contact Info) Description 06/17/2016 Hospital Outpatient Visit [facility]IC RAD [facility] [address] [place] [address] Discharge Disposition: Home or Self [...] Name Priority Date/Time Associated Diagnosis Comments XR CERVICAL SPINE 2 OR 3VW Routine 06/17/2016 12:46 PM INDUSTRIAL AUTOMATION SPECIALIST XR THORACIC SPINE 2VW Routine 06/17/2016 12:45 PM INDUSTRIAL AUTOMATION SPECIALIST documented in this encounter Results * XR CERVICAL SPINE 2 OR 3VW (06/17/2016 12:46 PM INDUSTRIAL AUTOMATION SPECIALIST) Anatomical Region Laterality Modality Spine Other Impressions 06/17/2016 3:52 PM INDUSTRIAL AUTOMATION SPECIALIST IMPRESSION: Unchanged posterior spinal fusion extending from C5 through T12. Unchanged T6 burst fracture. Dictated by Rachid Goel MD (psychiatry resident). This report was approved ??by Rachid Goel M.D. ?? on 06/17/2016 3:01 PM . I, Dr. KATHERINE MARX M.D. have personally reviewed and interpreted this examination/study. This report was electronically signed by KATHERINE MARX M.D. ??on 06/17/2016 3:52 PM . Narrative 06/17/2016 3:52 PM INDUSTRIAL AUTOMATION SPECIALIST EXAMINATION: XR SPINE CERVICAL 2 OR 3 VIEWS, XR SPINE THORACIC 2 VWS HISTORY: follow up COMPARISON: 10/30/2015 FINDINGS: Cervical spine: Posterior spinal fusion hardware extends from C5 through the visualized thoracic spine and appears intact. A posterior cerclage wire is again seen. Again noted is mild straightening of the cervical lordosis, unchanged. Alignment is normal. No acute fracture or compression deformity is identified. There is degenerative disc disease at C5-6 and C6-7, unchanged. ??The prevertebral soft tissues are normal. Bone density and texture are normal. Thoracic spine: Posterior spinal fusion hardware extends from C5 through T12 and appears intact. Thoracic spine alignment is normal. A T6 burst fracture with approximately 70% of height loss is unchanged. No new compression deformity seen. Mild degenerative disc disease and lower thoracic spine is unchanged. Procedure Note Katherine Marx MD - 10/30/2017 EXAMINATION: XR SPINE CERVICAL 2 OR 3 VIEWS, XR SPINE THORACIC 2 VWS HISTORY: follow up COMPARISON: 10/30/2015 FINDINGS: Cervical spine: Posterior spinal fusion hardware extends from C5 through the visualizedthoracic spine and appears intact. A posterior cerclage wire is againseen. Again noted is mild straightening of the cervical lordosis,unchanged. Alignment is normal. No acute fracture or compression deformity is identified. There is degenerativedisc disease at C5-6 and C6-7, unchanged. The prevertebral soft tissuesare normal. Bone density and texture are normal. Thoracic spine: Posterior spinal fusion hardware extends from C5 through T12 and appearsintact. Thoracic spine alignment is normal. A T6 burst fracture withapproximately 70% of height loss is unchanged. No new compressiondeformity seen. Mild degenerative disc disease and lower thoracic spine is unchanged. IMPRESSION IMPRESSION: Unchanged posterior spinal fusion extending from C5 through T12. Unchanged T6 burst fracture. Dictated by Rachid Goel MD (psychiatry resident). This report was approved by Rachid Goel M.D. on 06/17/2016 3:01PM . Dr. KATHERINE Muller M.D. have personally reviewed and interpreted thisexamination/study. This report was electronically signed by KATHERINE MARX M.D. on 06/17/20163:52 PM . Urban Guzman MD DIAGNOSTIC IMAGING O RDERABLES * XR THORACIC SPINE 2VW (06/17/2016 12:45 PM INDUSTRIAL AUTOMATION SPECIALIST) Anatomical Region Laterality Modality Spine Other Impressions 06/17/2016 3:52 PM INDUSTRIAL AUTOMATION SPECIALIST IMPRESSION: Unchanged posterior spinal fusion extending from C5 through T12. Unchanged T6 burst fracture. Dictated by Rachid Goel MD (psychiatry resident). This report was approved ??by Rachid Goel M.D. ?? on 06/17/2016 3:[address] KATHERINE Muller M.D. have personally reviewed and interpreted this examination/study. This report was electronically signed by KATHERINE MARX M.D. ??on 06/17/2016 3:52 PM . Narrative 06/17/2016 3:52 PM INDUSTRIAL AUTOMATION SPECIALIST EXAMINATION: XR SPINE CERVICAL 2 OR 3 VIEWS, XR SPINE THORACIC 2 VWS HISTORY: follow up COMPARISON: 10/30/2015 FINDINGS: Cervical spine: Posterior spinal fusion hardware extends from C5 through the visualized thoracic spine and appears intact. A posterior cerclage wire is again seen. Again noted is mild straightening of the cervical lordosis, unchanged. Alignment is normal. No acute fracture or compression deformity is identified. There is degenerative disc disease at C5-6 and C6-7, unchanged. ??The prevertebral soft tissues are normal. Bone density and texture are normal. Thoracic spine: Posterior spinal fusion hardware extends from C5 through T12 and appears intact. Thoracic spine alignment is normal. A T6 burst fracture with approximately 70% of height loss is unchanged. No new compression deformity seen. Mild degenerative disc disease and lower thoracic spine is unchanged. Procedure Note Katherine Marx MD - 10/30/2017 EXAMINATION: XR SPINE CERVICAL 2 OR 3 VIEWS, XR SPINE THORACIC 2 VWS HISTORY: follow up COMPARISON: 10/30/2015 FINDINGS: Cervical spine: Posterior spinal fusion hardware extends from C5 through the visualizedthoracic spine and appears intact. A posterior cerclage wire is againseen. Again noted is mild straightening of the cervical lordosis,unchanged. Alignment is normal. No acute fracture or compression deformity is identified. There is degenerativedisc disease at C5-6 and C6-7, unchanged. The prevertebral soft tissuesare normal. Bone density and texture are normal. Thoracic spine: Posterior spinal fusion hardware extends from C5 through T12 and appearsintact. Thoracic spine alignment is normal. A T6 burst fracture withapproximately 70% of height loss is unchanged. No new compressiondeformity seen. Mild degenerative disc disease and lower thoracic spine is unchanged. IMPRESSION IMPRESSION: Unchanged posterior spinal fusion extending from C5 through T12. Unchanged T6 burst fracture. Dictated by Rachid Goel MD (psychiatry resident). This report was approved by Rachid Goel M.D. on 06/17/2016 3:01PM . I, Dr. KATHERINE MAXR M.D. have personally reviewed and interpreted thisexamination/study. This report was electronically signed by KATHERINE MARX M.D. on 06/17/20163:52 PM . Urban Guzman MD DIAGNOSTIC IMAGING O RDERABLES documented in this encounter Visit Diagnoses Diagnosis Encounter for follow-up examination after completed treatment for conditions other than malignant neoplasm documented in this encounter Care Teams Intelligence Clerk Relationship Specialty Start Date End Date Blake Lindsey MD [address] [place] [address] PCP - General 05/20/16 documented as of this encounter
--- OUTSIDE RECORDS SUMMARY | 2024-07-29 17:23 | XMS_ITS | Encounter Summary ---
Author Organization [facility] Health Address [address] [facility] [place] [address] Care Team Providers Care Ice Cream Vendor Name Role Phone Blake Lindsey MD Primary Care Provider [phone] Encounter Details Date Type Department Care Team (Latest Contact Info) Description 11/07/2013 [facility] Outpatient [facility] - Orthopedics [address] [facility], [place] [address] Reji Virk MD [address] [place], [place] [id number] Discharge Disposition: Home or Self Care Social [...] Diagnosis Comments XR THORACIC SPINE 2VW Routine 11/07/2013 8:47 AM CDT documented in this encounter Results * XR THORACIC SPINE 2VW (11/07/2013 8:47 AM CDT) Anatomical Region Laterality Modality Spine Other Impressions 11/07/2013 10:49 AM CDT Impression: Postoperative appearance of instrumented posterior spinal fusion from C5-T12 with unchanged T6 vertebral body compression deformity. Dictated by Sanju Vazquez M.D. (Resident) Dr. KATHERINE Muller M.D. have personally reviewed and interpreted this examination/study. This report was electronically signed by KATHERINE HO M.D. ??on 11/07/2013 10:49 AM . Narrative 11/07/2013 10:49 AM CDT Exam: Thoracic spine, 2 views Date: 11/07/2013 History: Back pain Comparison: 03/10/2013 Findings: The patient is status post instrumented posterior spinal fusion extending from C5-T12. Cerclage wires are also noted along the posterior elements from C7-T2. The hardware appears intact. The severe compression deformity of the T6 vertebral body is not significantly changed. The alignment is unchanged. No new fracture is identified. The remaining vertebral body heights are maintained. Procedure Note Katherine Ho MD - 10/30/2017 Exam: Thoracic spine, 2 views Date: 11/07/2013 History: Back pain Comparison: 03/10/2013 Findings: The patient is status post instrumented posterior spinal fusion extendingfrom C5-T12. Cerclage wires are also noted along the posterior elementsfrom C7-T2. The hardware appears intact. The severe compression deformityof the T6 vertebral body is not significantly changed. The alignment is unchanged. No new fracture isidentified. The remaining vertebral body heights are maintained. IMPRESSION Impression: Postoperative appearance of instrumented posterior spinal fusion fromC5-T12 with unchanged T6 vertebral body compression deformity. Dictated by Sanju Vazquez M.D. (Resident) Dr. KATHERINE Muller M.D. have personally reviewed and interpreted thisexamination/study. This report was electronically signed by KATHERINE HO M.D. on 11/07/201310:49 AM . Reji Virk MD DIAGNOSTIC IMAGING O RDERABLES documented in this encounter Visit Diagnoses Diagnosis Backache Backache, unspecified documented in this encounter Care Teams Ice Cream Vendor Relationship Specialty Start Date End Date Blake Lindsey MD [address] [place] [address] PCP - General 05/20/16 documented as of this encounter
--- OUTSIDE RECORDS SUMMARY | 2024-07-29 17:23 | XMS_ITS | Encounter Summary ---
Author Organization [facility] Health Address [address] [facility] [place] [address] Care Team Providers Care Barking Machine Feeder Name Role Phone Blake Lindsey MD Primary Care Provider [phone] Encounter Details Date Type Department Care Team (Latest Contact Info) Description 11/06/2014 [facility] [address] [facility], [facility] [place] [address] Reji Virk MD [address] [place], [place] [id number] Discharge Disposition: Home or Self Care Social [...] on filedocumented in this encounter Care Teams Barking Machine Feeder Relationship Specialty Start Date End Date Blake Lindsey MD [address] [place] [address] PCP - General 05/20/16 documented as of this encounter
--- OUTSIDE RECORDS SUMMARY | 2024-07-29 17:23 | XMS_ITS | Encounter Summary ---
Author Organization [facility] Health Address [address] [facility] [place] [address] Care Team Providers Care Sign Erector And Repairer Name Role Phone Blake Lindsey MD Primary Care Provider [phone] Encounter Details Date Type Department Care Team (Latest Contact Info) Description 07/23/2015 Hospital Outpatient Visit Historic [facility] [address] [place] [phone] Castillo Max MD [address] [place] [address] [address] [place] [phone] Discharge Disposition: Home or Self Care Social [...] Diagnosis Comments CBC W AUTO DIFFERENTIAL STAT 07/23/2015 11:03 AM DELIVERY PROFESSIONAL COMPREHENSIVE METABOLIC PANEL STAT 07/23/2015 11:03 AM DELIVERY PROFESSIONAL CBC W AUTO DIFFERENTIAL STAT 07/23/2015 11:03 AM DELIVERY PROFESSIONAL documented in this encounter Results * (ABNORMAL) COMPREHENSIVE METABOLIC PANEL (07/23/2015 11:03 AM DELIVERY PROFESSIONAL) BUN 11 7 - 26 mg/dL [facility] Creatinine 0.8 0.6 - 1.2 mg/dL [facility] Sodium 141 136 - 145 mmol/L [facility] Potassium 3.6 3.5 - 4.5 mmol/L [facility] Chloride 106 98 - 107 mmol/L [facility] CO2 24 22 - 29 mmol/L [facility] Glucose 142(H) 70 - 115 mg/dL [facility] Calcium 9.3 8.4 - 10.2 mg/dL [facility] Protein Total 7.0 6.0 - 8.3 g/dL [facility] Albumin 3.8 3.4 - 5.0 g/dL [facility] Bilirubin Total 0.6 0.2 - 1.2 mg/dL [facility] Alkaline Phosphatase 108 40 - 150 Units/L [facility] ALT 72(H) 0 - 55 Units/L [facility] AST 40(H) 5 - 34 Units/L [facility] Anion Gap 15 8 - 18 [facility] BUN/Creatinine Ratio 14 7 - 23 [facility] Osmolality Calculated 279 270 - 300 mOsm/kg [facility] Albumin/Globulin Ratio 1.2 1.1 - 2.3 [facility] eGFR >60 >60 mL/min/1.7 3 m2 [facility] Blood specimen (specimen) BLOOD SPECIMEN / Unknown 07/23/2015 11:03 AM DELIVERY PROFESSIONAL 07/23/2015 11:39 AM DELIVERY PROFESSIONAL Castillo Max MD LAB - CHEMISTRY OR DERABLES [address] [phone] * (ABNORMAL) CBC W AUTO DIFFERENTIAL (07/23/2015 11:03 AM DELIVERY PROFESSIONAL) Pathologist [facility] WBC 7.9 3.5 - 10.5 10? 3 /uL [facility] RBC 4.44 3.90 - 5.00 10? 6 /uL [facility] Hemoglobin 14.3 12.0 - 15.5 g/dL [facility] Hematocrit 41.6 35.0 - 45.0 % [facility] MCV 93.7 81.0 - 97.0 fL [facility] MCH 32.2 28.0 - 34.0 pg [facility] MCHC 34.4 32.0 - 36.0 g/dL [facility] Platelet Count 164 150 - 400 10? 3 /uL [facility] RDW-SD 47.7 36.0 - 50.0 fL [facility] RDW-CV 13.9 11.2 - 14.8 % [facility] MPV 8.9(L) 9.3 - 12.8 fL [facility] Neutrophils % 66.9 35.0 - 70.0 % [facility] Lymphocytes % 24.2 19.7 - 55.1 % [facility] Monocytes % 6.2 3.0 - 15.0 % [facility] Eosinophils % 2.4 0.0 - 6.0 % [facility] Basophil % 0.3 0.0 - 1.5 % [facility] Neutrophils Absolute 5.3 1.6 - 7.0 10? 3 /uL [facility] Lymphocyte Absolute 1.9 0.8 - 2.9 10? 3 /uL [facility] Monocytes Absolute 0.49 0.14 - 0.66 10? 3 /uL [facility] Eosinophils Absolute 0.19 0.00 - 0.22 10? 3 /uL [facility] Basophils Absolute 0.02 0.00 - 0.06 10? 3 /uL [facility] Immature Granulocytes % 0.3 0.0 - 1.0 % [facility] Blood specimen (specimen) BLOOD SPECIMEN / Unknown 07/23/2015 11:03 AM DELIVERY PROFESSIONAL 07/23/2015 11:39 AM DELIVERY PROFESSIONAL Castillo Max MD LAB - HEMATOLOGY O RDERABLES [facility] [address] [phone] * CBC W AUTO DIFFERENTIAL (07/23/2015 11:03 AM DELIVERY PROFESSIONAL) Blood specimen (specimen) BLOOD SPECIMEN / Unknown 07/23/2015 11:03 AM DELIVERY PROFESSIONAL Narrative [facility] - 07/23/2015 11:43 AM DELIVERY PROFESSIONAL The following orders were created for panel order CBC with Differential. Procedure ? Abnormality ? Status ? --------- ? ------ ? CBC WITH DIFFERENTIAL[[id number]] ? Abnormal ?Final result ? Please view results for these tests on the individual orders. Castillo Max MD LAB - HEMATOLOGY O RDERABLES Performing Organization Address City/State/[facility] Co de Phone Number [facility] [address] documented in this encounter Visit Diagnoses Diagnosis Hodgkin lymphoma (HCC) Hodgkin's disease, unspecified documented in this encounter Care Teams Sign Erector And Repairer Relationship Specialty Start Date End Date Blake Lindsey MD [address] [place] [address] PCP - General 05/20/16 documented as of this encounter
--- OUTSIDE RECORDS SUMMARY | 2024-07-29 17:23 | XMS_ITS | Encounter Summary ---
Author Organization [facility] Health Address [address] [facility] [address] Care Team Providers Care Electrical Electronics Engineers Name Role Phone Blake Lindsey MD Primary Care Provider [phone] Encounter Details Date Type Department Care Team (Late st Contact Info) Description 05/20/2016 [facility] Phys[facility] - Orthopedics [address] [place] [address] Wai Lowry MD [address] [place] [address] [place] [address] Discharge Disposition: Home or Self [...] on filedocumented in this encounter Care Teams Electrical Electronics Engineers Relationship Specialty Start Date End Date Blake Lindsey MD [address] [place] [address] PCP - General 05/20/16 documented as of this encounter
--- OUTSIDE RECORDS SUMMARY | 2024-07-29 17:23 | XMS_ITS | Encounter Summary ---
Author Organization [facility] Health Address [address] [place] [address] Care Team Providers Care Non Profit Director Name Role Phone Blake Lindsey MD Primary Care Provider [phone] Encounter Details Date Type Department Care Team (Latest Contact Info) Description 07/31/2015 Hospital Outpatient Visit [facility] DIAGNOSTIC RAD CSM [address] [facility]. [facility] [place] [address] Reji Virk MD [address] [place], [place] [phone] Discharge Disposition: Home or Self Care Social [...] Name Priority Date/Time Associated Diagnosis Comments XR THORACOLUMBAR SPINE 2VW Routine 07/31/2015 10:50 AM COST ANALYST XR CERVICAL SPINE 2 OR 3VW Routine 07/31/2015 10:50 AM COST ANALYST documented in this encounter Results * XR THORACOLUMBAR SPINE 2VW (07/31/2015 10:50 AM COST ANALYST) Anatomical Region Laterality Modality Spine Other Impressions 07/31/2015 4:45 PM COST ANALYST Impression: Unchanged postoperative appearance of instrumented posterior spinal fusion from C5-T12 for a non-retropulsed T6 burst fracture. Report dictated by Yoan Wilson MD (resident). This report was approved ??by Yoan Wilson ?? on 07/31/2015 1:37 PM . I, Dr. ALICIA GREEN M.D. have personally reviewed and interpreted this examination/study. This report was electronically signed by ALICIA GREEN M.D. ??on 07/31/2015 4:45 PM . Narrative 07/31/2015 4:45 PM COST ANALYST Exam: XR SPINE THORACOLUMBAR 2 VWS, XR [...] intervertebral disc spaces are maintained. Procedure Note Alicia Green MD - 10/30/2017 Exam: XR SPINE [...] Yoan Wilson on 07/31/2015 1:[address] ALICIA Muller M.D. have personally reviewed and interpreted thisexamination/study. This report was electronically signed by ALICIA GREEN M.D. on07/31/2015 4:45 PM . Reji Virk MD DIAGNOSTIC IMAGING O RDERABLES * XR CERVICAL SPINE 2 OR 3VW (07/31/2015 10:50 AM COST ANALYST) Anatomical Region Laterality Modality Spine Other Impressions 07/31/2015 4:45 PM COST ANALYST Impression: Unchanged postoperative appearance of instrumented posterior spinal fusion from C5-T12 for a non-retropulsed T6 burst fracture. Report dictated by Yoan Wilson MD (resident). This report was approved ??by Yoan Wilson ?? on 07/31/2015 1:[address] ALICIA Muller M.D. have personally reviewed and interpreted this examination/study. This report was electronically signed by ALICIA GREEN M.D. ??on 07/31/2015 4:45 PM . Narrative 07/31/2015 4:45 PM COST ANALYST Exam: XR SPINE THORACOLUMBAR 2 VWS, XR [...] intervertebral disc spaces are maintained. Procedure Note Alicia Green MD - 10/30/2017 Exam: XR SPINE [...] on 07/31/2015 1:37 PM . I, Dr. ALICIA GREEN M.D. have personally reviewed and interpreted thisexamination/study. This report was electronically signed by ALICIA GREEN M.D. on07/31/2015 4:45 PM . Reji Virk MD DIAGNOSTIC IMAGING O RDERABLES documented in this encounter Visit Diagnoses Diagnosis Encounter for follow-up examination after completed treatment for conditions other than malignant neoplasm documented in this encounter Care Teams Non Profit Director Relationship Specialty Start Date End Date Blake Lindsey MD [address] [place] [address] PCP - General 05/20/16 documented as of this encounter
--- OUTSIDE RECORDS SUMMARY | 2024-07-29 17:23 | XMS_ITS | Encounter Summary ---
Author Organization [facility] Health Address [address] [facility] [place] [address] Care Team Providers Care Coat Examiner Name Role Phone Blake Lindsey MD Primary Care Provider [phone] Encounter Details Date Type Department Care Team (Latest Contact Info) Description 06/19/2014 [facility] [address] [facility], [facility] [place] [address] Reji Virk MD [address] [place], [place] [phone] Discharge Disposition: Home or Self Care Social [...] on filedocumented in this encounter Care Teams Coat Examiner Relationship Specialty Start Date End Date Blake Lindsey MD [address] [place] [address] PCP - General 05/20/16 documented as of this encounter
--- OUTSIDE RECORDS SUMMARY | 2024-07-29 17:23 | XMS_ITS | Encounter Summary ---
Author Organization [facility] Health Address [address] [place] [address] Care Team Providers Care Help Desk Supervisor Name Role Phone Blake Lindsey MD Primary Care Provider [phone] Encounter Details Date Type Department Care Team (Latest Contact Info) Description 07/16/2016 Hospital Outpatient Visit Historic [facility] PET [address] [place] [id number] Discharge Disposition: Home or Self Care Social [...] Diagnosis Comments PET CT WHOLE BODY Routine 07/16/2016 12: 09 PM EARTH SCIENCES PROFESSOR GLUCOSE - POINT OF CARE (AMB) [facility] Routine 07/16/2016 10:05 AM EARTH SCIENCES PROFESSOR GLUCOSE - POINT OF CARE (AMB) [facility] Routine 07/16/2016 10:05 AM EARTH SCIENCES PROFESSOR documented in this encounter Results * PET CT WHOLE BODY (07/16/2016 12:09 PM EARTH SCIENCES PROFESSOR) Anatomical Region Laterality Modality Other Impressions 07/16/2016 1:37 PM EARTH SCIENCES PROFESSOR IMPRESSION: 1. No definite PET/CT evidence of malignancy. 2. Mildly FDG avid bilateral axillary nodes with preserved fatty pedro, likely benign. This report was approved ??by Frantz Loaiza M.D. ?? on 07/16/2016 12:40 PM . I, Dr. MARSHAL PATEL D.O. have personally reviewed and interpreted this examination/study. This report was electronically signed by MARSHAL PATEL D.O. ??on 07/16/2016 1:37 PM . Narrative 07/16/2016 1:37 PM EARTH SCIENCES PROFESSOR Procedure: PET/CT Study. Referring Physician: Castillo Max M.D. HISTORY: 45-year-old female with history of Hodgkin lymphoma stage IVB IPS 3 diagnosed in September 2012 status post chemotherapy. Evaluate for subsequent ??treatment strategy. TECHNIQUE: ??12.21 mCi of F-18 FDG was injected intravenously in the LAC. PET/CT images were acquired from top of the head to the feet after approximately 60 minutes post-injection with the CT being low-dose, non-contrast. No separate report for the CT was generated as it was of non-diagnostic quality and was used for anatomic localization and attenuation correction only. Blood glucose level at the time of injection was 94 mg/dl. FINDINGS: Comparison made with prior study dated 07/16/2015. Head and neck: There is physiological FDG activity throughout the brain parenchyma. Multiple subcentimeter mild FDG avid cervical lymph nodes, unchanged compared to prior study, likely benign. No abnormal FDG focus is present. Chest: Bilateral dependent atelectasis changes are present. The lungs are clear of focal consolidation. No pleural effusion or focal pleural thickening is identified. There is no evidence of pneumothorax. No suspicious hypermetabolic pulmonary nodule is identified. The heart size is normal. No pericardial effusion is present. Few FDG avid bilateral axillary lymph nodes measuring up to 0.7 centimeter in the left axilla with SUV max of 2.8. These nodes have preserved fatty hilum and are likely benign. Abdomen and pelvis: Within the limitations of a noncontrast examination, the liver, gallbladder, spleen, pancreas, and adrenal glands are unremarkable. The kidneys appear normal in size and configuration. There is normal FDG activity throughout the small and large bowel. No free air or free fluid is identified within the abdomen. IUD is present. There is no hypermetabolic or enlarged abdominal lymphadenopathy. For reference, SUV max of liver is 2.8, previously 2.9. Musculoskeletal: Postoperative and instrumented spinal fusion in the lower cervical and upper thoracic spine are again seen and unchanged compared to prior study. Redemonstration of lytic lesion in L5 vertebra with a central sclerotic focus, and without focal FDG uptake, representing treated lesion. Diffuse muscular uptake in the upper extremities. Procedure Note Marshal Patel, DO - 10/30/2017 Procedure: PET/CT Study. Referring Physician: Castillo Max M.D. HISTORY: 45-year-old female with history of Hodgkin lymphoma stage IVB IPS3 diagnosed in September 2012 status post chemotherapy. Evaluate forsubsequent treatment strategy. TECHNIQUE: 12.21 mCi of F-18 FDG was injected intravenously in the LAC.PET/CT images were acquired from top of the head to the feet afterapproximately 60 minutes post-injection with the CT being low-dose,non-contrast. No separate report for the CT was generated as it was of non-diagnostic quality and was used foranatomic localization and attenuation correction only. Blood glucose levelat the time of injection was 94 mg/dl. FINDINGS: Comparison made with prior study dated 07/16/2015. Head and neck: There is physiological FDG activity throughout the brain parenchyma.Multiple subcentimeter mild FDG avid cervical lymph nodes, unchangedcompared to prior study, likely benign. No abnormal FDG focus ispresent. Chest: Bilateral dependent atelectasis changes are present. The lungs are clearof focal consolidation. No pleural effusion or focal pleural thickening isidentified. There is no evidence of pneumothorax. No suspicioushypermetabolic pulmonary nodule is identified. The heart size is normal. No pericardial effusion is present. Few FDG avidbilateral axillary lymph nodes measuring up to 0.7 centimeter in the leftaxilla with SUV max of 2.8. These nodes have preserved fatty hilum and arelikely benign. Abdomen and pelvis: Within the limitations of a noncontrast examination, the liver,gallbladder, spleen, pancreas, and adrenal glands are unremarkable. Thekidneys appear normal in size and configuration. There is normal FDGactivity throughout the small and large bowel. No free air or free fluid is identified within the abdomen. IUD ispresent. There is no hypermetabolic or enlarged abdominal lymphadenopathy. Forreference, SUV max of liver is 2.8, previously 2.9. Musculoskeletal: Postoperative and instrumented spinal fusion in the lower cervical andupper thoracic spine are again seen and unchanged compared to prior study.Redemonstration of lytic lesion in L5 vertebra with a central scleroticfocus, and without focal FDG uptake, representing treated lesion. Diffuse muscular uptake in the upperextremities. IMPRESSION IMPRESSION: 1. No definite PET/CT evidence of malignancy. 2. Mildly FDG avid bilateral axillary nodes with preserved fatty pedro,likely benign. This report was approved by Frantz Loaiza M.D. on 07/16/2016 12:40PM . I, Dr. MARSHAL PATEL D.O. have personally reviewed and interpreted thisexamination/study. This report was electronically signed by MARSHAL PATEL D.O. on07/16/2016 1:37 PM . Castillo Max MD NM ORDERABLES * GLUCOSE - POINT OF CARE (AMB) [facility] (07/16/2016 10:05 AM EARTH SCIENCES PROFESSOR) Marshal Patel DO LAB - POINT OF CARE ORDERABLES [facility] RADIOLOGY * GLUCOSE - POINT OF CARE (AMB) [facility] (07/16/2016 10:05 AM EARTH SCIENCES PROFESSOR) Glucose POCT 94 mg/dL [facility] Capillary blood specimen (specimen) 07/16/2016 10:05 AM EARTH SCIENCES PROFESSOR Marshal Patel DO LAB - POINT OF CARE ORDERABLES [facility] documented in this encounter Visit Diagnoses Diagnosis Hodgkin lymphoma (HCC) Hodgkin's disease, unspecified documented in this encounter Care Teams Help Desk Supervisor Relationship Specialty Start Date End Date Blake Lindsey MD [address] [place] [phone] PCP - General 05/20/16 documented as of this encounter
--- OUTSIDE RECORDS SUMMARY | 2024-07-29 17:23 | XMS_ITS | Encounter Summary ---
Author Organization [facility] Health Address [address] [facility] [place] [place] [address] Care Team Providers Care Dancing Instructor Name Role Phone Blake Lindsey MD Primary Care Provider [phone] Encounter Details Date Type Department Care Team (Latest Contact Info) Description 01/25/2014 Hospital Outpatient Visit Historic [facility] [address] [place] [phone] Castillo Max MD [address] [place] [address] [address] [place] [id number] Discharge Disposition: Home or Self Care Social [...] on filedocumented in this encounter Care Teams Dancing Instructor Relationship Specialty Start Date End Date Blake Lindsey MD [address] [place] [address] PCP - General 05/20/16 documented as of this encounter
--- OUTSIDE RECORDS SUMMARY | 2024-07-29 17:23 | XMS_ITS | Encounter Summary ---
Author Organization [facility] Health Address [address] [facility] [place] [address] Care Team Providers Care Sale Professional Digital Marketing Name Role Phone Blake Lindsey MD Primary Care Provider Encounter Details Date Type Department Care Team (Latest Contact Info) Description 06/12/2014 Hospital Outpatient Visit Historic [facility] [address] [place] [phone] Castillo Max MD [address] [place] [address] [address] [place] [id number] Discharge Disposition: Home or Self Care Social [...] on filedocumented in this encounter Care Teams Sale Professional Digital Marketing Relationship Specialty Start Date End Date Blake Lindsey MD [address] [place] [address] PCP - General 05/20/16 documented as of this encounter
--- OUTSIDE RECORDS SUMMARY | 2024-07-29 17:23 | XMS_ITS | Encounter Summary ---
Author Organization [facility] Health Address [address] [facility] [place] [address] Care Team Providers Care Retread Builder Name Role Phone Blake Lindsey MD Primary Care Provider [phone] Encounter Details Date Type Department Care Team (Latest Contact Info) Description 07/16/2016 Hospital Outpatient Visit Historic [facility] [address] [place] [phone] Castillo Max MD [address] [place] [address] [address] [place] [phone] Discharge Disposition: Home or Self Care Social [...] on filedocumented in this encounter Care Teams Retread Builder Relationship Specialty Start Date End Date Blake Lindsey MD [address] [place] [address] PCP - General 05/20/16 documented as of this encounter
--- OUTSIDE RECORDS SUMMARY | 2024-07-29 17:23 | XMS_ITS | Encounter Summary ---
Author Organization [facility] Health Address [address] [place] [address] Care Team Providers Care Boat Designer Name Role Phone Blake Lindsey MD Primary Care Provider [phone] Encounter Details Date Type Department Care Team (Late st Contact Info) Description 06/01/2016 Hospital Outpatient Visit [facility] Default Department Rachael Black MD [address] [place] [address] Discharge Disposition: Home or Self Care Social [...] on filedocumented in this encounter Care Teams Boat Designer Relationship Specialty Start Date End Date Blake Lindsey MD [address] [place] [address] PCP - General 05/20/16 documented as of this encounter
--- OUTSIDE RECORDS SUMMARY | 2024-07-29 17:23 | XMS_ITS | Encounter Summary ---
Author Organization [facility] Health Address [address] [place] [address] Care Team Providers Care Studio Control Operator Name Role Phone Blake Lindsey MD Primary Care Provider [phone] Encounter Details Date Type Department Care Team (Latest Contact Info) Description 02/21/2014 Hospital Outpatient Visit Historic [facility] [address] [place] [id number] Kareem Baker MD [address] [place] [address] Discharge Disposition: Home or Self Care Social [...] Sign Reading Time Taken Comments Blood Pressure 92/54 02/21/2014 6:27 PM CDT Pulse 75 02/21/2014 6:27 PM CDT Temperature 36.3 ??C (97.4 ??F) 02/21/2014 1:56 PM CD T Respiratory Rate 17 02/21/2014 6:27 PM CDT Oxygen Saturation 94% 02/21/2014 6:27 PM CDT Inhaled Oxygen Concentration - - Weight 83 kg (183 lb) 02/21/2014 1:56 PM CDT Height 160 cm (5' 3 ) 02/21/2014 1:56 PM CDT Body Mass Index 32.42 02/21/2014 1:56 PM CDT documented in this encounter H&P Notes * Briana Muñoz MD - 02/21/2014 3:26 PM CDT H&P Signed by Briana Muñoz MD on 02/21/2014 3:29 PM Author: Briana Muñoz MD Service: Interventional Radiology Author Type: Resident Date of Service: 02/21/2014 3:26 PM Filed: 02/21/2014 3:29 PM Note Type: H&P Status: Signed Chamfering Machine Operator: Briana Muñoz MD (Resident) Cosigner: Kareem Baker MD at 02/25/2014 8:45 PM [facility] Short Pre-Procedure History and Physical Patient: Lakeisha Alejandra Age: 43 y.o. Date of : 1970 Date of Admission: 02/21/2014 Date: 02/21/2014 Location:IR Procedure: Anterior mediastinal mass biopsy under CT guidance. Pre-Procedure Assessment/Data Subjective: Patient is a 43 y.o. female With hodgkin's lymphoma. Recent PET shows FDG avid mass in anterior mediastinum. IR consulted for biopsy. Problem List as of 02/21/2014 Hodgkin's lymphoma Stage 4b Constipation Pain management Lump or mass in breast Nausea with vomiting Alkaline phosphatase elevation Seizure Anxiety with panic attack Blood clot in vein Hodgkin lymphoma Anemia, unspecified Thrombocytopenia GERD (gastroesophageal reflux disease) Allergic rhinitis Past Medical History Diagnosis Date ??? Cancer dx 09/30/12 ??? Asthma ??? Blood circulation, collateral ??? Anxiety ??? Osteoporosis ??? Mental disorder Claustrophobia ??? Allergy pcn, Codeine, Epi ??? Anemia, unspecified 02/06/2013 ??? GERD (gastroesophageal reflux disease) 07/13/2013 Past Surgical History Procedure Laterality Date ??? Pr femur/knee surg unlisted both knees ??? Biopsy ??? Hx spinal fusion ??? Lalita tooth extraction (Not in a hospital admission) Allergies Allergen Reactions ??? Pcn (Penicillins) Rash ??? Codeine Other (See Comments) Passes out ??? Epinephrine Hcl Other (See Comments) When injected in mouth for dental procedures, makes extremities go numb History Substance Use Topics ??? Smoking status: Former Smoker -- 1.00 packs/day for 10 years Types: Cigarettes Quit date: 11/03/2002 ??? Smokeless tobacco: Never Used ??? Alcohol Use: No Comment: I haven't had anything since I started chemo Family History Problem Relation Age of Onset ??? Cancer Father ??? Diabetes Mother ??? Heart Disease Mother Father ??? Hypertension Mother Review of Systems A comprehensive review of systems was negative. Objective: Patient Vitals for the past 8 hrs: BP Temp Temp src Pulse SpO2 Height Weight 02/21/14 1356 105/76 mmHg 97.4 ??F (36.3 ??C) Oral 71 96 % 5' 3 (1.6 m) 183 lb (83.008 kg) No intake or output data in the 24 hours ending 02/21/14 1526 General: The patient is alert, oriented and in no apparent distress. Data Review: CBC: Lab Results Component Value Date WBC 4.7 02/08/2014 WBC 6.7 11/23/2013 RBC 4.06 02/08/2014 RBC 3.87 11/23/2013 HGB 13.4 02/08/2014 HGB 13.1 11/23/2013 HCT 38.9 02/08/2014 HCT 38.5 11/23/2013 PLT 123* 02/08/2014 PLT 190 11/23/2013 BMP: Lab Results Component Value Date GLU 94 02/08/2014 GLU 86 01/25/2014 GLU 89 11/23/2013 NA 144 02/08/2014 NA 142 11/23/2013 K 3.9 02/08/2014 K 4.0 11/23/2013 K 4.9 11/14/2012 CL 108* 02/08/2014 CL 106 11/23/2013 CO2 24 02/08/2014 CO2 25 11/23/2013 BUN 9 02/08/2014 BUN 12 11/23/2013 CREATININE 0.7 02/08/2014 CREATININE 0.72 11/23/2013 CALCIUM 9.8 02/08/2014 CALCIUM 9.9 11/23/2013 CMP: Lab Results Component Value Date ALB 4.1 02/08/2014 ALB 3.9 10/12/2013 ALT 11 02/08/2014 ALT 23 10/12/2013 AST 11 02/08/2014 AST 19 10/12/2013 GLU 94 02/08/2014 GLU 86 01/25/2014 GLU 89 11/23/2013 NA 144 02/08/2014 NA 142 11/23/2013 K 3.9 02/08/2014 K 4.0 11/23/2013 K 4.9 11/14/2012 CL 108* 02/08/2014 CL 106 11/23/2013 CO2 24 02/08/2014 CO2 25 11/23/2013 BUN 9 02/08/2014 BUN 12 11/23/2013 CREATININE 0.7 02/08/2014 CREATININE 0.72 11/23/2013 CALCIUM 9.8 02/08/2014 CALCIUM 9.9 11/23/2013 TBILI 0.5 02/08/2014 TBILI 0.5 10/12/2013 PROT 7.2 02/08/2014 PROT 6.9 10/12/2013 Coagulation: Lab Results Component Value Date PT 15.3* 02/23/2013 INR 1.2 02/23/2013 Cardiac markers: Lab Results Component Value Date TROPONINI < 0.010 12/25/2012 Assessment: 43 y.o. female With hodgkin's lymphoma. Recent PET shows FDG avid mass in anterior mediastinum. IR consulted for biopsy. Plan: Anterior mediastinal mass biopsy under CT guidance. Blood pressure 105/76, pulse 71, temperature 97.4 ??F (36.3 ??C), temperature source Oral, height 5' 3 (1.6 m), weight 183 lb (83.008 kg), SpO2 96.00%. Briana Muñoz MD documented in this encounter Procedure Notes * Kareem Baker MD - 02/21/2014 5:23 PM CDT Procedures Signed by Kareem Baker MD on 02/21/2014 5:25 PM Author: Kareem Baker MD Service: Interventional Radiology Author Type: Physician Date of Service: 02/21/2014 5:23 PM Filed: 02/21/2014 5:25 PM Note Type: Procedures Status: Signed Chamfering Machine Operator: Kareem Baker MD (Physician) Procedure Orders: 1. IP SEDATION POST [[id number]] ordered by Kareem Baker MD at 02/21/14 1724 Post-procedure Diagnoses: 1. Hodgkin lymphoma [201.90] 2. Mediastinal mass [786.6] Lakeisha Alejandra is a 43 y.o. female patient s/p mediastinal mas biopsy Past Medical History Diagnosis Date ??? Cancer dx 09/30/12 ??? Asthma ??? Blood circulation, collateral ??? Anxiety ??? Osteoporosis ??? Mental disorder Claustrophobia ??? Allergy pcn, Codeine, Epi ??? Anemia, unspecified 02/06/2013 ??? GERD (gastroesophageal reflux disease) 07/13/2013 Blood pressure 93/55, pulse 58, temperature 97.4 ??F (36.3 ??C), temperature source Oral, resp. rate 22, height 5' 3 (1.6 m), weight 183 lb (83.008 kg), SpO2 94.00%. .Sedation Post Date/Time: 02/21/2014 5:24 PM Performed by: KAREEM BAKER Authorized by: KAREEM BAKER Unit: IR Post-Procedure Attestation: I have reviewed the post-procedure vital signs: Yes Patient is 2 - able to move four extremities voluntarily on command. Patient 2 - is able to breathe and cough freely. Patient's 2 - color is WNL. Patient's pain level is: 1 Post-sedation nausea and vomiting present: No Post-sedation hydration status is adequate: Yes KAREEM BAKER MD 02/21/2014 * Briana Muñoz MD - 02/21/2014 4:56 PM CDT Procedures Signed by Briana Muñoz MD on 02/21/2014 4:58 PM Author: Briana Muñoz MD Service: Interventional Radiology Author Type: Resident Date of Service: 02/21/2014 4:56 PM Filed: 02/21/2014 4:58 PM Note Type: Procedures Status: Signed Chamfering Machine Operator: Briana Muñoz MD (Resident) Cosigner: Kareem Baker MD at 02/25/2014 8:45 PM IR Brief Post-Procedure Note Lakeisha Alejandra Attending: Dr. Baker Hobber: Dr. Muñoz Diagnosis: Lymphoma Description of procedure: Anterior mediastinal mass CT guided biopsy Duration of procedure: 50 minutes; Start time: 1605 hours; Sedation initiation time: 1605 hours; End time: 1655 hours Anesthesia: Moderate Medication used: 1 mg Versed IV; 25 micrograms Fentanyl IV. Complications: none Estimated Blood Loss: Minimal Specimens: 2 FNA samples, 2 Core biopsy samples in RPMI, 2 Core biopsy samples in Formalin See detailed procedure note with images in PACS (Synapse). The patient tolerated the procedure well without incident or complication and was returned to holding in stable condition. 02/21/2014 4:56 PM Briana Muñoz M.D. * Kareem Baker MD - 02/21/2014 3:41 PM CDT Procedures Signed by Kareem Baker MD on 02/21/2014 3:44 PM Author: Kareem Baker MD Service: Interventional Radiology Author Type: Physician Date of Service: 02/21/2014 3:41 PM Filed: 02/21/2014 3:44 PM Note Type: Procedures Status: Signed Chamfering Machine Operator: Kareem Baker MD (Physician) Procedure Orders: 1. IP SEDATION PRE [[id number]] ordered by Kareem Baker MD at 02/21/14 1541 Post-procedure Diagnoses: 1. Hodgkin lymphoma [201.90] Lakeisha Alejandra is a 43 y.o. female patient planned for CT guided mediastinal mass bx. Past Medical History Diagnosis Date ??? Cancer dx 09/30/12 ??? Asthma ??? Blood circulation, collateral ??? Anxiety ??? Osteoporosis ??? Mental disorder Claustrophobia ??? Allergy pcn, Codeine, Epi ??? Anemia, unspecified 02/06/2013 ??? GERD (gastroesophageal reflux disease) 07/13/2013 Blood pressure 105/76, pulse 71, temperature 97.4 ??F (36.3 ??C), temperature source Oral, height 5' 3 (1.6 m), weight 183 lb (83.008 kg), SpO2 96.00%. 'Sedation Pre Date/Time: 02/21/2014 2:30 PM Performed by: KAREEM BAKER Authorized by: KAREEM BAKER Unit: IR Consent: Verbal consent obtained. written consent obtained. History & Exam Attestation: I have reviewed the pre-procedure nursing assessment: Yes Brief history and exam related to procedure complete: Yes H&P was reviewed, the patient was examined, and that ? no changes? have occurred in the patient? s condition since the H&P was complete: Yes History of previous anesthetic problems/complications including family history: Yes History of airway problems: No Tracheal deviation: No Short thick neck/non-visible neck: NoNeck with limited range of motion: No Visible anterior neck mass: No Small mouth opening/ and/or sub/mental space (less than 3 finger breadths): No Protruding upper teeth: No Oxygen saturation less than 91% on room air: No Last oral intake: 02/20/2014 8:42 PM Pre-Procedure ASA Classification: ASA 2 Mallampati Classification: Class II Procedure Plan: Moderate Sedation Based on the pre-procedure assessment, History and Physical, and allergy history, this patient is asuitable candidate for sedation during the planned procedure. I have discussed the plan, risk, benefits and alternatives with patient, family members or patient assisted sales representative: Yes Attestation: I have reviewed the immediate pre-procedure vital signs: Yes Patient reports or my clinical evaluation indicates there have been no changes in the patient's condition prior to the start of the procedure: Yes Intra-Procedure KAREEM BAKER MD 02/21/2014 documented in this encounter Plan of Treatment Not on file documented as of this encounter Procedures Procedure Name Priority Date/Time Associated Diagnosis Comments XR CHEST 1VW PORTABLE Routine 02/21/2014 6:[address] GUIDED NEEDLE PLACEMENT Routine 02/21/2014 5:[address] GUIDED NEEDLE PLACEMENT Routine 02/21/2014 5:17 PM CDT PATHOLOGY TISSUE Routine 02/21/2014 4:55 PM CDT CYTOLOGY NON-CONTACT PERSON PANEL (STL) Routine 02/21/2014 4:21 PM CDT documented in this encounter Results * XR CHEST 1VW PORTABLE (02/21/2014 6:23 PM CDT) Anatomical Region Laterality Modality Chest Other Impressions 02/22/2014 11:13 AM CDT Impression: No acute pulmonary process after anterior mediastinal mass biopsy. This report has been dictated by Navjot Hernandez M.D. (Resident). I, Dr. PRESTON MORROW M.D. have personally reviewed and interpreted this examination/study. This report was electronically signed by PRESTON MORROW M.D. ??on 02/22/2014 11:13 AM . Narrative 02/22/2014 11:13 AM CDT Exam: Portable chest, AP view Date: 02/21/2014 History: Hodgkin's lymphoma status post anterior mediastinal mass biopsy. Comparison: 02/11/2013 Findings: The left chest port has been removed. Mild left basilar atelectasis is seen. No focal consolidation, pleural effusion, or pneumothorax is present. ??The cardiomediastinal silhouette is normal in size. The anterior mediastinal mass is better characterized on PET CT dated 01/25/2014. Spinal fusion hardware is partially imaged. Procedure Note Preston Morrow MD - 10/30/2017 Exam: Portable chest, AP view Date: 02/21/2014 History: Hodgkin's lymphoma status post anterior mediastinal massbiopsy. Comparison: 02/11/2013 Findings: The left chest port has been removed. Mild left basilaratelectasis is seen. No focal consolidation, pleural effusion, or pneumothorax is present. Thecardiomediastinal silhouette is normal in size. The anterior mediastinalmass is better characterized on PET CT dated 01/25/2014. Spinal fusionhardware is partially imaged. IMPRESSION Impression: No acute pulmonary process after anterior mediastinal mass biopsy. This report has been dictated by Navjot Hernandez M.D. (Resident). I, Dr. PRESTON MORROW M.D. have personally reviewed and interpreted thisexamination/study. This report was electronically signed by PRESTON MORROW M.D. on02/22/2014 11:13 AM . Castillo Max MD DIAGNOSTIC IMAGING ORDERABLES * CT GUIDED NEEDLE PLACEMENT (02/21/2014 5:17 PM CDT) Anatomical Region Laterality Modality Abdomen [...] Sedation Initiated Time: 1605 ? End Time: 5 Procedure in Detail: The procedure and possible [...] performed using 22-gauge Chiba needle. Aspirin the truss builder the since lymphoid cells were present, the truss builder requested to additional core samples to be sent on [facility]. Hence, 4 core samples were acquired with [...] lesion, 2 fine needle aspirations were performed [id number] Chiba needle. Aspirin the truss builder the since lymphoid cellswere present, the truss builder requested to additional core samples to besent [...] . Castillo Max MD CT ORDERABLES * CT GUIDED NEEDLE PLACEMENT (02/21/2014 5:17 PM CDT) Anatomical Region Laterality Modality Abdomen [...] performed using 22-gauge Chiba needle. Aspirin the truss builder the since lymphoid cells were present, the truss builder requested to additional core samples to be sent on [facility]. Hence, 4 core samples were acquired with [...] lesion, 2 fine needle aspirations were performed -lbonp Chiba needle. Aspirin the truss builder the since lymphoid cellswere present, the truss builder requested to additional core samples to besent [...] The specimen is received in formalin, labeled Justyn Lakeisha Loving and mediastinal mass . ??It consists of [...] The flow cytometric analysis for this biopsy ([id number]) has a non-clonal T cell-predominant population compatible with normal thymus. There is no epithelial neoplasm. TABLE WORKER/AF/edk The performance characteristics of all immunohistochemical and indirect immunofluorescence stains (if any) cited in this report were determined by the Histopathology Laboratory of [facility].?? Some of these tests were developed [...] by Kanika Steiner MD. Electronically signed 02/23/2014 [facility] ([facility]) Other (qualifier value) 02/21/2014 4:55 PM CDT 02/22/2014 7:39 AM CDT Narrative [facility] ([facility]) - 02/23/2014 7:36 PM CDT Collection Date->02/21/14 Collection Time-> 4:23 PM Specimen A->Mediastinum Castillo Max MD LAB - PATHOLOGY/CY TOLOGY ORDERABLES [facility] ([facility]) * CYTOLOGY NON-CONTACT PERSON PANEL (STL) (02/21/2014 4:21 PM CDT) Cytology Non-Game Producer Reference: [id number] Specimen: MEDIASTINUM, MASS Clinical History: h/o lymphoma, [...] refer to the concurrent flow cytometric analysis ([id number]) and surgical biopsy specimen ([id number]). ES/OA COMMENT(S): PRELIMINARY DIAGNOSIS: Immediate interpretation by: Dr. Reymundo Allen PASS 1: ??Many lymphoid cells PASS 2: ??Many lymphoid cells This case has been personally reviewed and interpreted by the attending (teaching) pathologist. Initial Evaluation performed by Dax NIELSEN(ASCP). Electronically signed 02/23/2014 Final Diagnosis performed by Mannie Allen MD. Electronically signed 02/23/2014 [facility] ([facility]) Other (qualifier value) 02/21/2014 4:21 PM CDT 02/22/2014 1:11 PM CDT Narrative [facility] ([facility]) - 02/23/2014 2:39 PM CDT Diagnosis->mediastinal mass Collection Date->02/21/14 Collection Time-> 4:18 PM Specimen A->Mediastinum Castillo Max MD LAB - PATHOLOGY/CY TOLOGY ORDERABLES [facility] ([facility]) documented in this encounter Visit Diagnoses Diagnosis Hodgkin's disease (HCC) Swelling, mass, or lump in chest documented in this encounter Care Teams Studio Control Operator Relationship Specialty Start Date End Date Blake Lindsey MD [address] [place] [address] PCP - General 05/20/16 documented as of this encounter
--- OUTSIDE RECORDS SUMMARY | 2024-07-29 17:23 | XMS_ITS | Encounter Summary ---
Author Organization [facility] Health Address [address] [place] [address] Care Team Providers Care Payroll Professional Name Role Phone Blake Lindsey MD Primary Care Provider [phone] Encounter Details Date Type Department Care Team (Latest Contact Info) Description 11/05/2015 Hospital Outpatient Visit Historic [facility] [address] [place] [address] Reji Virk MD [address] [place], [place] [id number] Discharge Disposition: Home or Self Care Social [...] on filedocumented in this encounter Care Teams Payroll Professional Relationship Specialty Start Date End Date Blake Lindsey MD [address] [place] [address] PCP - General 05/20/16 documented as of this encounter
--- OUTSIDE RECORDS SUMMARY | 2024-07-29 17:23 | XMS_ITS | Encounter Summary ---
Author Organization [facility] Health Address [address] [facility] [place] [address] Care Team Providers Care Manager Respiratory Name Role Phone Blake Lindsey MD Primary Care Provider [phone] Encounter Details Date Type Department Care Team (Latest Contact Info) Description 02/05/2015 [facility] [address] [facility] [place] [address] Reji Virk MD [address] [place], [place] [id number] Discharge Disposition: Home or Self Care Social [...] filedocumented in this encounter Care Teams Manager Respiratory Relationship Specialty Start Date End Date Blake Lindsey MD [address] [place] [address] PCP - General 05/20/16 documented as of this encounter
--- OUTSIDE RECORDS SUMMARY | 2024-07-29 17:23 | XMS_ITS | Encounter Summary ---
Author Organization [facility] Health Address [address] [facility] [place] [address] Care Team Providers Care Financial Compliance Officer Name Role Phone Blake Lindsey MD Primary Care Provider Encounter Details Date Type Department Care Team (Late st Contact Info) Description 08/09/2014 Hospital Outpatient Visit Historic [facility] [address] [place] [address] Jessica Saunders, COPRA PROCESSOR-TOOL AND GAUGE INSPECTOR [address] [facility] [place] [address] Discharge Disposition: Home or Self Care Social [...] Priority Date/Time Associated Diagnosis Comments FLOW CYTOMETRY RITUXAN BLOOD Routine 08/09/2014 1:01 PM MAILER APPRENTICE CBC W AUTO DIFFERENTIAL STAT 08/09/2014 1:01 PM MAILER APPRENTICE CBC W AUTO DIFFERENTIAL STAT 08/09/2014 1:01 PM MAILER APPRENTICE COMPREHENSIVE METABOLIC PANEL STAT 08/09/2014 1:01 PM MAILER APPRENTICE IGG BLOOD STAT 08/09/2014 1:01 PM MAILER APPRENTICE documented in this encounter Results * FLOW CYTOMETRY RITUXAN BLOOD PANEL (08/09/2014 1:01 PM MAILER APPRENTICE) [facility] Rituxan Panel Flow Cytometry Specimen: Blood Reference:[id number] Reason for test: Rituxan Panel Panel REquested Markers: 7 Flow Cytometry Results: Differential ?Result ?Comment WBC COUNT/uL ? 4600 %LYMPHOCYTES ? 31 LYMPH COUNT/uL ?1426 Cell Region A: Lymphocytes Surface Marker ?Result (%) ?CD3 ? 71 ?CD4 ? 39 ?CD8 ? 29 ? CD20 ? 12 ? CD19 ? 12 ? CD45 ? 98 ? CD56 ? 7 Peripheral Blood Lymphocyte Adult Normal Reference Range [...] ?0-1 ? IgD ? 3-15 CD16 ?0-23 ?[place] ? 3-12 CD19 ?8-24 ?Lambda ?3-7 CD20 ?7-17 ?HLA-DR ?9-25 CD23 ?2-16 ?TdT ? 0 Test performed at [facility] Appl[facility], [address] [facility] ??[id number] This test was developed and its performance [...] perform high complexity clinical testing. By law [place], CD4 lymphocyte counts on patients with HIV infection must be reported by the physician to the [facility] authority. Interpretation: Flow cytometric analysis of the peripheral blood demonstrates a WBC count of 4,600/ul with 31% of cells (1,426/ul) within the small lymphocyte region. Within the small lymphocyte region, 71% of cells are CD3-positive T-cells (normal), 12% are B-cells (normal), and 7% express the natural killer cell antigen, CD56 (normal). 39% are CD4-positive cells (decreased) and 29% are CD8-positive cells (normal). 98% of cells express CD45. KR/MS This case has been personally reviewed and interpreted by the attending (teaching) pathologist. Final Diagnosis performed by Sisi Pichardo MD. Electronically signed 08/09/2014 [facility] ([facility]) Blood specimen (specimen) 08/09/2014 1:01 PM MAILER APPRENTICE 08/09/2014 1:35 PM MAILER APPRENTICE Jessica Saunders COPRA PROCESSOR-TOOL AND GAUGE INSPECTOR LAB - PATHOL OGY/CYTOLOGY ORDERABLES [facility] ([facility]) * IGG BLOOD (08/09/2014 1:01 PM MAILER APPRENTICE) IgG 708 540 - 1,822 mg/dL [facility] Blood specimen (specimen) BLOOD SPECIMEN / Unknown 08/09/2014 1:01 PM MAILER APPRENTICE 08/09/2014 1:28 PM MAILER APPRENTICE Jessica Saunders COPRA PROCESSOR-TOOL AND GAUGE INSPECTOR LAB - CHEMIS TRY ORDERABLES [address] [phone] * COMPREHENSIVE METABOLIC PANEL (08/09/2014 1:01 PM MAILER APPRENTICE) BUN 10 7 - 26 mg/dL [facility] Creatinine 0.7 0.6 - 1.2 mg/dL [facility] Sodium 141 136 - 145 mmol/L [facility] Potassium 3.7 3.5 - 4.5 mmol/L [facility] Chloride 104 98 - 107 mmol/L [facility] CO2 25 22 - 29 mmol/L [facility] Glucose 90 70 - 115 mg/dL [facility] Calcium 9.5 8.4 - 10.2 mg/dL [facility] Protein Total 6.8 6.0 - 8.3 g/dL [facility] Albumin 3.9 3.4 - 5.0 g/dL [facility] Bilirubin Total 0.5 0.2 - 1.2 mg/dL [facility] Alkaline Phosphatase 95 40 - 150 Units/L [facility] ALT 9 0 - 55 Units/L [facility] AST 11 5 - 34 Units/L [facility] Anion Gap 16 8 - 18 [facility] BUN/Creatinine Ratio 14 7 - 23 [facility] Osmolality Calculated 276 270 - 300 mOsm/kg [facility] Albumin/Globulin Ratio 1.3 1.1 - 2.3 [facility] eGFR >60 >60 mL/min/1.7 3 m2 [facility] Blood specimen (specimen) BLOOD SPECIMEN / Unknown 08/09/2014 1:01 PM MAILER APPRENTICE 08/09/2014 1:28 PM MAILER APPRENTICE Jessica Saunders COPRA PROCESSOR-TOOL AND GAUGE INSPECTOR LAB - CHEMIS TRY ORDERABLES [address] [phone] * (ABNORMAL) CBC W AUTO DIFFERENTIAL (08/09/2014 1:01 PM MAILER APPRENTICE) WBC 4.6 3.5 - 10.5 10? 3 /uL [facility] RBC 4.17 3.90 - 5.00 10? 6 /uL [facility] Hemoglobin 13.6 12.0 - 15.5 g/dL [facility] Hematocrit 40.2 35.0 - 45.0 % [facility] MCV 96.4 81.0 - 97.0 fL [facility] MCH 32.6 28.0 - 34.0 pg [facility] MCHC 33.8 32.0 - 36.0 g/dL [facility] Platelet Count 126(L) 150 - 400 10? 3 /uL [facility] RDW-SD 45.1 36.0 - 50.0 fL [facility] RDW-CV 13.0 11.2 - 14.8 % [facility] MPV 8.7(L) 9.3 - 12.8 fL [facility] Neutrophils % 56.5 35.0 - 70.0 % [facility] Lymphocytes % 31.4 19.7 - 55.1 % [facility] Monocytes % 7.8 3.0 - 15.0 % [facility] Eosinophils % 3.9 0.0 - 6.0 % [facility] Basophil % 0.2 0.0 - 1.5 % [facility] Neutrophils Absolute 2.6 1.6 - 7.0 10? 3 /uL [facility] Lymphocyte Absolute 1.5 0.8 - 2.9 10? 3 /uL [facility] Monocytes Absolute 0.36 0.14 - 0.66 10? 3 /uL [facility] Eosinophils Absolute 0.18 0.00 - 0.22 10? 3 /uL [facility] Basophils Absolute 0.01 0.00 - 0.06 10? 3 /uL [facility] Immature Granulocytes % 0.2 0.0 - 1.0 % [facility] Blood specimen (specimen) BLOOD SPECIMEN / Unknown 08/09/2014 1:01 PM MAILER APPRENTICE 08/09/2014 1:04 PM MAILER APPRENTICE Jessica Saunders COPRA PROCESSOR-TOOL AND GAUGE INSPECTOR LAB - HEMATO LOGY ORDERABLES [facility] [address] [place] [address] * CBC W AUTO DIFFERENTIAL (08/09/2014 1:01 PM MAILER APPRENTICE) Blood specimen (specimen) BLOOD SPECIMEN / Unknown 08/09/2014 1:01 PM MAILER APPRENTICE Narrative [facility] - 08/09/2014 1:07 PM MAILER APPRENTICE The following orders were created for panel order CBC with Differential. Procedure ? Abnormality ? Status ? --------- ? ------ ? CBC WITH DIFFERENTIAL[[id number]] ? Abnormal ?Final result ? Please view results for these tests on the individual orders. Jessica Saunders COPRA PROCESSOR-TOOL AND GAUGE INSPECTOR LAB - HEMATO LOGY ORDERABLES Performing Organization Address [facility] Co de Phone Number [facility] [address] documented in this encounter Visit Diagnoses Diagnosis Hodgkin's disease (HCC) Fever due to unspecified condition documented in this encounter Care Teams Financial Compliance Officer Relationship Specialty Start Date End Date Blake Lindsey MD [address] [place] [address] PCP - General 05/20/16 documented as of this encounter
--- OUTSIDE RECORDS SUMMARY | 2024-07-29 17:23 | XMS_ITS | Encounter Summary ---
Author Organization [facility] Health Address [address] [place] [address] Care Team Providers Care Early Childhood Education Instructor Name Role Phone Blake Lindsey MD Primary Care Provider Encounter Details Date Type Department Care Team (Latest Contact Info) Description 01/25/2014 Hospital Outpatient Visit Historic [facility] PET [address] [place] [id number] Discharge Disposition: Home or Self Care Social [...] Diagnosis Comments PET CT WHOLE BODY Routine 01/25/2014 11: 08 AM CDT GLUCOSE - POINT OF CARE (AMB) [facility] Routine 01/25/2014 9:26 AM CDT GLUCOSE - POINT OF CARE (AMB) [facility] Routine 01/25/2014 documented in this encounter Results * PET CT WHOLE BODY (01/25/2014 11:08 AM CDT) Anatomical Region Laterality Modality Other Impressions 01/25/2014 5:09 PM CDT IMPRESSION: 1.There is redemonstration of anterior mediastinal/retrosternal well-defined soft tissue density, unchanged in size compared to the prior exam, slightly increased FDG activity, could represent rebound thymic hyperplasia however the possibility of neoplastic process cannot be ruled out. 2. Few scattered low FDG avid cervical and inguinal lymph nodes are seen, which are grossly unchanged in size and SUV activity compared to the prior exam, likely of benign nature. 3. Mild bilateral symmetric activity is seen at the extraocular muscles, floor of mouth, both tonsils, nasopharynx, lingual tonsils, hypopharynx with new FDG activity in the oral tongue. The FDG activity appears slightly more prominent compared to the prior exam, however there is no underlying soft tissue abnormality, likely of benign nature, could represent post treatment changes. 4. Multifocal activity is seen at the ascending and sigmoid colon that appear slightly hypermetabolic compared to the prior exam, likely physiologic. 5. The previously seen skeletal lesions are grossly unchanged in size and SUV activity, likely treated lesions. This report was approved ??by Tsering Napier M.D. ?? on 01/25/2014 3:06 PM . I, Dr. RENEE SHIN M.D. have personally reviewed and interpreted this examination/study. This report was electronically signed by RENEE SHIN M.D. ??on 01/25/2014 5:09 PM . Narrative 01/25/2014 5:09 PM CDT Procedure: PET/CT Study. Referring Physician: Dr. Castillo Max HISTORY: 43-year-old female patient with Hodgkin's lymphoma, diagnosed in September 2012, status post chemotherapy. Earlier sites of disease included the mediastinum, left supraclavicular, and right inguinal nodes. Prior osseous metastases included sternum, ribs, multiple vertebrae, bilateral iliac wings, and left femur. 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 Evaluate for restaging and subsequent treatment strategy. TECHNIQUE: 12.67 mCi of F-18 FDG by IV in the left arm. PET/CT images were acquired from top of the head to the feet after approx. 62 minutes post-injection with the CT being low-dose, non-contrast. No separate report for the CT was generated as it was of non-diagnostic quality and was used for anatomic localization and attenuation correction only. Blood glucose level at the time of injection was 86 mg/dl. FINDINGS: Comparison is with prior exam dated 10/10/13. Head and neck: There is no abnormal cerebral/cerebellar parenchymal FDG activity. Mild bilateral symmetric activity is seen at the extraocular muscles, floor of mouth, both tonsils, nasopharynx, lingual tonsils, hypopharynx with new FDG activity in the oral tongue. The FDG activity appears slightly more prominent compared to the prior exam, an example that is activity in the left tonsil with an SUV Max of 8.7 (previously 7.7) however there is no underlying soft tissue abnormality. There is redemonstration of few subcentimeter level II and III lymph nodes with the largest at the left level II measuring 0.5 cm in maximum short axis diameter with an SUV Max of 2.3, unchanged compared to the prior exam. Chest: There is redemonstration of anterior mediastinal/retrosternal well-defined soft tissue density, unchanged in size compared to the prior exam, with an SUV Max of 3.8 (previously 2.8), could represent rebound thymic hyperplasia however the possibility of neoplastic process cannot be ruled out. There is no sizable and/or hypermetabolic hilar or mediastinal lymph nodes. The heart size is borderline enlarged. There is no pleural effusion. There is no significant FDG avid pulmonary mass/nodule. Benign-appearing bilateral axillary lymph nodes do not demonstrate significant FDG uptake. Abdomen and pelvis: There is redemonstration of few subcentimeter radiodense gallbladder stones, without PET/CT evidence of cholecystitis. The liver, spleen, adrenals, pancreas and kidneys, appear unremarkable with no significant FDG activity. There is a sizable and/or hypermetabolic abdominal or pelvic lymph nodes. There is redemonstration of multiple subcentimeter bilateral inguinal lymph nodes with the largest in the right inguinal region measuring 0.8 cm in maximum short axis diameter with an SUV Max of one, unchanged in size and FDG activity compared to the prior exam. Multifocal activity is seen at the ascending and sigmoid colon that appear slightly hypermetabolic compared to the prior exam, likely physiologic. An intrauterine device is visualized. For reference, SUVmax of liver is 2.5, previously 2.6 Musculoskeletal: There is redemonstration of cervical and thoracic spine posterior spinal fusion. A lytic lesion in the L5 vertebra on the right side appears unchanged in size and appearance from prior study and demonstrates interval slightly increased FDG uptake, SUV Max 2.7. Multiple other lytic and sclerotic osseous lesions are seen scattered throughout the skeleton, with unchanged mild FDG uptake, favoring treated lesions. Right gluteal subcutaneous soft tissue stranding is seen with an SUV Max of 0.6, likely injection granuloma. Procedure Note Renee Shin MD - 10/30/2017 Procedure: PET/CT Study. Referring Physician: Dr. Castillo Max HISTORY: 43-year-old female patient with Hodgkin's lymphoma, diagnosed inSeptember 2012, status post chemotherapy. Earlier sites of disease includedthe mediastinum, left supraclavicular, and right inguinal nodes. Priorosseous metastases included sternum, ribs, multiple vertebrae, bilateral iliac wings, and left femur. 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 Evaluate for restaging and subsequent treatment strategy. TECHNIQUE: 12.67 mCi of F-18 FDG by IV in the left arm. PET/CT images wereacquired from top of the head to the feet after approx. 62 minutespost-injection with the CT being low-dose, non-contrast. No separatereport for the CT was generated as it was of non-diagnostic quality and was used for anatomic localization andattenuation correction only. Blood glucose level at the time of injectionwas 86 mg/dl. FINDINGS: Comparison is with prior exam dated 10/10/13. Head and neck: There is no abnormal cerebral/cerebellar parenchymal FDG activity. Mild bilateral symmetric activity is seen at the extraocular muscles,floor of mouth, both tonsils, nasopharynx, lingual tonsils, hypopharynxwith new FDG activity in the oral tongue. The FDG activity appearsslightly more prominent compared to the prior exam, an example that is activity in the left tonsil with an SUV Max of8.7 (previously 7.7) however there is no underlying soft tissueabnormality. There is redemonstration of few subcentimeter level II and III lymph nodeswith the largest at the left level II measuring 0.5 cm in maximum shortaxis diameter with an SUV Max of 2.3, unchanged compared to the priorexam. Chest: There is redemonstration of anterior mediastinal/retrosternal well-definedsoft tissue density, unchanged in size compared to the prior exam, with anSUV Max of 3.8 (previously 2.8), could represent rebound thymichyperplasia however the possibility of neoplastic process cannot be ruled out. There is no sizable and/or hypermetabolic hilar or mediastinal lymphnodes. The heart size is borderline enlarged. There is no pleuraleffusion. There is no significant FDG avid pulmonary mass/nodule.Benign-appearing bilateral axillary lymph nodes do not demonstrate significant FDG uptake. Abdomen and pelvis: There is redemonstration of few subcentimeterradiodense gallbladder stones, without PET/CT evidence of cholecystitis.The liver, spleen, adrenals, pancreas and kidneys, appear unremarkablewith no significant FDG activity. There is a sizable and/or hypermetabolic abdominal or pelvic lymph nodes. There isredemonstration of multiple subcentimeter bilateral inguinal lymph nodeswith the largest in the right inguinal region measuring 0.8 cm in maximumshort axis diameter with an SUV Max of one, unchanged in size and FDG activity compared to the prior exam.Multifocal activity is seen at the ascending and sigmoid colon that appearslightly hypermetabolic compared to the prior exam, likely physiologic. Anintrauterine device is visualized. For reference, SUVmax of liver is 2.5, previously 2.6 Musculoskeletal: There is redemonstration of cervical and thoracic spineposterior spinal fusion. A lytic lesion in the L5 vertebra on the rightside appears unchanged in size and appearance from prior study anddemonstrates interval slightly increased FDG uptake, SUV Max 2.7. Multiple other lytic and sclerotic osseouslesions are seen scattered throughout the skeleton, with unchanged mildFDG uptake, favoring treated lesions. Right gluteal subcutaneous soft tissue stranding is seen with an SUV Maxof 0.6, likely injection granuloma. IMPRESSION IMPRESSION: 1.There is redemonstration of anterior mediastinal/retrosternalwell-defined soft tissue density, unchanged in size compared to the priorexam, slightly increased FDG activity, could represent rebound thymichyperplasia however the possibility of neoplastic process cannot be ruled out. 2. Few scattered low FDG avid cervical and inguinal lymph nodes are seen,which are grossly unchanged in size and SUV activity compared to the priorexam, likely of benign nature. 3. Mild bilateral symmetric activity is seen at the extraocular muscles,floor of mouth, both tonsils, nasopharynx, lingual tonsils, hypopharynxwith new FDG activity in the oral tongue. The FDG activity appearsslightly more prominent compared to the prior exam, however there is no underlying soft tissue abnormality, likelyof benign nature, could represent post treatment changes. 4. Multifocal activity is seen at the ascending and sigmoid colon thatappear slightly hypermetabolic compared to the prior exam, likelyphysiologic. 5. The previously seen skeletal lesions are grossly unchanged in size andSUV activity, likely treated lesions. This report was approved by Tsering Napier M.D. on 01/25/2014 3:06 PM . I, Dr. RENEE SHIN M.D. have personally reviewed and interpreted thisexamination/study. This report was electronically signed by RENEE SHIN M.D. on 01/25/20145:09 PM . Castillo Max MD [place] ORDERABLES * GLUCOSE - POINT OF CARE (AMB) [facility] (01/25/2014 9:26 AM CDT) Glucose POCT 86 mg/dL [facility] Capillary blood specimen (specimen) 01/25/2014 9:26 AM CDT Lorie Tim DO LAB - POINT OF CARE ORDERABLES [facility] * GLUCOSE - POINT OF CARE (AMB) [facility] (01/25/2014) Lorie Tim DO LAB - POINT OF CARE ORDERABLES [facility] documented in this encounter Visit Diagnoses Diagnosis Hodgkin's disease (HCC) Other secondary thrombocytopenia documented in this encounter Care Teams Early Childhood Education Instructor Relationship Specialty Start Date End Date Blake Lindsey MD [address] [place] [address] PCP - General 05/20/16 documented as of this encounter
--- OUTSIDE RECORDS SUMMARY | 2024-07-29 17:23 | XMS_ITS | Encounter Summary ---
Author Organization [facility] Health Address [address] [place] [address] Care Team Providers Care Dental Billing Specialist Name Role Phone Blake Lindsey MD Primary Care Provider [phone] Encounter Details Date Type Department Care Team (Late st Contact Info) Description 09/02/2016 [facility] - Orthopedics [address] [place] [phone] Urban Guzman MD [address] [place] [address] [place] [address] Discharge Disposition: Home or Self [...] on filedocumented in this encounter Care Teams Dental Billing Specialist Relationship Specialty Start Date End Date Blake Lindsey MD [address] [place] [address] PCP - General 05/20/16 documented as of this encounter
--- OUTSIDE RECORDS SUMMARY | 2024-07-29 17:23 | XMS_ITS | Encounter Summary ---
Author Organization [facility] Health Address [address] [facility] [place] [address] Care Team Providers Care Supervisor Roving Name Role Phone Blake Lindsey MD Primary Care Provider [phone] Encounter Details Date Type Department Care Team (Late st Contact Info) Description 09/09/2016 [facility] Orth[facility] [address] [place] [phone] Wai Lowry MD [address] [place] [address] [place] [address] Discharge Disposition: Home or Self [...] filedocumented in this encounter Care Teams Supervisor Roving Relationship Specialty Start Date End Date Blake Lindsey MD [address] [place] [address] PCP - General 05/20/16 documented as of this encounter
--- OUTSIDE RECORDS SUMMARY | 2024-07-29 17:23 | XMS_ITS | Encounter Summary ---
Author Organization [facility] Health Address [address] [place] [address] Care Team Providers Care Meat Lugger Name Role Phone Blake Lindsey MD Primary Care Provider [phone] Encounter Details Date Type Department Care Team (Latest Contact Info) Description 05/24/2014 Hospital Outpatient Visit Historic [facility] PET [address] [place] [id number] Discharge Disposition: Home or Self Care Social [...] Diagnosis Comments PET CT WHOLE BODY Routine 05/24/2014 11: 03 AM CDT GLUCOSE - POINT OF CARE (AMB) [facility] Routine 05/24/2014 9:25 AM CDT GLUCOSE - POINT OF CARE (AMB) [facility] Routine 05/24/2014 documented in this encounter Results * PET CT WHOLE BODY (05/24/2014 11:03 AM CDT) Anatomical Region Laterality Modality Other Impressions 05/24/2014 3:02 PM CDT IMPRESSION: 1. Grossly unchanged size of anterior mediastinal mass with decreased FDG avidity. This may represent thymic hyperplasia, less likely neoplastic process. 2. Mildly decreased size of cervical lymph nodes with decreased FDG avidity. These may be reactive. Previously noted mildly FDG avid inguinal lymph nodes are decreased in size and avidity. 3. No significant change in the lytic lesion with narrow zone of transition in the L5 vertebral body. This may represent a treated lesion. No other FDG avid osseous lesion is identified. This report was dictated by Trent Ryder MD (resident care provider) This report was approved ??by Trent Ryder M.D. ?? on 05/24/2014 2:29 PM . I, Dr. MARSHAL PATEL D.O. have personally reviewed and interpreted this examination/study. This report was electronically signed by MARSHAL PATEL D.O. ??on 05/24/2014 3:02 PM . Narrative 05/24/2014 3:02 PM CDT Procedure: PET/CT Study. Referring Physician: Dr. Max HISTORY: 43-year-old female patient with Hodgkin's lymphoma, diagnosed in September 2012, status post chemotherapy. Earlier sites of disease included the mediastinum, left supraclavicular, and right inguinal nodes. Previous PET CT revealed at the mediastinal mass and multiple cervical lymph nodes. Evaluate for subsequent treatment strategy. TECHNIQUE: 11.9 mCi of F-18 FDG by IV in the right arm. PET/CT images were acquired from top of the head to the feet after approx. 60 minutes post-injection with the CT being low-dose, non-contrast. No separate report for the CT was generated as it was of non-diagnostic quality and was used for anatomic localization and attenuation correction only. Blood glucose level at the time of injection was 75 mg/dl. FINDINGS: Comparison is made with the prior PET CT dated 01/25/2014. Head and neck: There is physiologic FDG uptake in the brain. No focal lesion is identified in the brain. There has been an interval decrease in bilateral uptake in the tonsils with SUV max of 6.0, previously 8.7. Bilateral enlarged level II cervical lymph nodes are identified measuring approximately 1.7 cm on the right with SUV max of 2.5. Enlarged level lB lymph node on the left is noted Measuring approximately 1.5 cm with SUV max of 2.4. There is no abnormal cerebral/cerebellar parenchymal FDG activity. ?? Benign-appearing bilateral axillary lymph nodes are noted. Chest: The previously noted anterior mediastinal soft tissue mass is again redemonstrated and appears grossly unchanged in size. The SUV max is 3.0, previously 3.8. This may represent thymic hyperplasia. No enlarged mediastinal or hilar lymph nodes are identified. No focal consolidation is identified in the lungs. There is no evidence of pulmonary nodule. Bibasilar subsegmental atelectasis is noted. No pleural effusion or pneumothorax is identified. The heart is prominent in size. Trace pericardial fluid is noted. Abdomen and pelvis: A layering hyperdense material within the gallbladder likely represents gallstones. No focal FDG avid lesion is identified in the liver. The pancreas and spleen appear unremarkable. The bilateral adrenal glands appear normal. The bilateral kidneys are normal with no evidence of hydronephrosis or hydroureter. Scattered subcentimeter mesenteric lymph nodes are identified. No focal FDG avid lymph node is noted in the abdomen. Bilateral prominent inguinal lymph nodes are identified measuring up to 0.7 cm with SUV max of 0.7, likely benign. Symmetric linear uptake is noted in the bowel loops. An intrauterine device is noted in the uterus. For reference, SUV max of liver is 2.5, previously 2.6 Musculoskeletal: The patient is status post posterior spinal fusion in the lower cervical and thoracic spine. A lytic lesion with narrow zone of transition is identified in the right aspect of the L5 vertebral body with thin sclerotic border. This is unchanged in appearance from the prior exam with SUV max of 1.7, previously 2.7. No other focal FDG avid lesion is identified in the bones. Inflammatory changes are noted in the bilateral knees. Procedure Note Marshal Patel, DO - 10/30/2017 Procedure: PET/CT Study. Referring Physician: Dr. Max HISTORY: 43-year-old female patient with Hodgkin's lymphoma, diagnosed inSeptember 2012, status post chemotherapy. Earlier sites of disease includedthe mediastinum, left supraclavicular, and right inguinal nodes. PreviousPET CT revealed at the mediastinal mass and multiple cervical lymph nodes. Evaluate for subsequent treatmentstrategy. TECHNIQUE: 11.9 mCi of F-18 FDG by IV in the right arm. PET/CT images wereacquired from top of the head to the feet after approx. 60 minutespost-injection with the CT being low-dose, non-contrast. No separatereport for the CT was generated as it was of non-diagnostic quality and was used for anatomic localization andattenuation correction only. Blood glucose level at the time of injectionwas 75 mg/dl. FINDINGS: Comparison is made with the prior PET CT dated 01/25/2014. Head and neck: There is physiologic FDG uptake in the brain. No focal lesion isidentified in the brain. There has been an interval decrease in bilateraluptake in the tonsils with SUV max of 6.0, previously 8.7. Bilateralenlarged level II cervical lymph nodes are identified measuring approximately 1.7 cm on the right with SUV max of2.5. Enlarged level lB lymph node on the left is noted Measuringapproximately 1.5 cm with SUV max of 2.4. There is no abnormalcerebral/cerebellar parenchymal FDG activity. Benign-appearing bilateral axillary lymph nodes are noted. Chest: The previously noted anterior mediastinal soft tissue mass is againredemonstrated and appears grossly unchanged in size. The SUV max is 3.0,previously 3.8. This may represent thymic hyperplasia. No enlargedmediastinal or hilar lymph nodes are identified. No focal consolidation is identified in the lungs. There is noevidence of pulmonary nodule. Bibasilar subsegmental atelectasis is noted.No pleural effusion or pneumothorax is identified. The heart is prominentin size. Trace pericardial fluid is noted. Abdomen and pelvis: A layering hyperdense material within the gallbladderlikely represents gallstones. No focal FDG avid lesion is identified inthe liver. The pancreas and spleen appear unremarkable. The bilateraladrenal glands appear normal. The bilateral kidneys are normal with no evidence of hydronephrosis orhydroureter. Scattered subcentimeter mesenteric lymph nodes areidentified. No focal FDG avid lymph node is noted in the abdomen.Bilateral prominent inguinal lymph nodes are identified measuring up to 0.7 cm with SUV max of 0.7, likely benign. Symmetriclinear uptake is noted in the bowel loops. An intrauterine device is notedin the uterus. For reference, SUV max of liver is 2.5, previously 2.6 Musculoskeletal: The patient is status post posterior spinal fusion in thelower cervical and thoracic spine. A lytic lesion with narrow zone oftransition is identified in the right aspect of the L5 vertebral body withthin sclerotic border. This is unchanged in appearance from the prior exam with SUV max of 1.7,previously 2.7. No other focal FDG avid lesion is identified in the bones.Inflammatory changes are noted in the bilateral knees. IMPRESSION IMPRESSION: 1. Grossly unchanged size of anterior mediastinal mass with decreased FDGavidity. This may represent thymic hyperplasia, less likely neoplasticprocess. 2. Mildly decreased size of cervical lymph nodes with decreased FDGavidity. These may be reactive. Previously noted mildly FDG avid inguinallymph nodes are decreased in size and avidity. 3. No significant change in the lytic lesion with narrow zone oftransition in the L5 vertebral body. This may represent a treated lesion.No other FDG avid osseous lesion is identified. This report was dictated by Trent Ryder MD (resident care provider) This report was approved by Trent Ryder M.D. on 05/24/2014 2:29 PM. I, Dr. MARSHAL PATEL D.O. have personally reviewed and interpreted thisexamination/study. This report was electronically signed by MARSHAL PATEL D.O. on05/24/2014 3:02 PM . Castillo Max MD [place] ORDERABLES * GLUCOSE - POINT OF CARE (AMB) [facility] (05/24/2014 9:25 AM CDT) Glucose POCT 75 mg/dL [facility] Capillary blood specimen (specimen) 05/24/2014 9:25 AM CDT Jose Shin MD LAB - POINT OF CARE ORDERABLES [facility] * GLUCOSE - POINT OF CARE (AMB) [facility] (05/24/2014) Jose Shin MD LAB - POINT OF CARE ORDERABLES [facility] documented in this encounter Visit Diagnoses Diagnosis Hodgkin's disease (HCC) documented in this encounter Care Teams Meat Lugger Relationship Specialty Start Date End Date Blake Lindsey MD [address] [place] [address] PCP - General 05/20/16 documented as of this encounter
--- OUTSIDE RECORDS SUMMARY | 2024-07-29 17:23 | XMS_ITS | Encounter Summary ---
Author Organization [facility] Health Address [address] [place] [address] Care Team Providers Care Propellant Assembler Name Role Phone Blake Lindsey MD Primary Care Provider [phone] Encounter Details Date Type Department Care Team (Latest Contact Info) Description 07/16/2015 Hospital Outpatient Visit Historic [facility] PET [address] [place] [id number] Discharge Disposition: Home or Self Care Social [...] Diagnosis Comments PET CT WHOLE BODY Routine 07/16/2015 9:3 5 AM IT AUDIT MANAGER GLUCOSE - POINT OF CARE (AMB) [facility] Routine 07/16/2015 GLUCOSE - POINT OF CARE (AMB) [facility] Routine 07/16/2015 documented in this encounter Results * PET CT WHOLE BODY (07/16/2015 9:35 AM IT AUDIT MANAGER) Anatomical Region Laterality Modality Other Impressions 07/16/2015 12:05 PM IT AUDIT MANAGER IMPRESSION: 1. No evidence of residual/recurrent disease. 2. Decreased size and FDG uptake of anterior mediastinal soft tissue density likely representing resolving thymic rebound status post chemotherapy. This report was approved ??by Turner Brooks M.D. ?? on 07/16/2015 11:27 AM . I, Dr. MARSHAL PATEL D.O. have personally reviewed and interpreted this examination/study. This report was electronically signed by MARSHAL PATEL D.O. ??on 07/16/2015 12:05 PM . Narrative 07/16/2015 12:05 PM IT AUDIT MANAGER Procedure: PET/CT Study. Referring Physician: Dr. Castillo Max HISTORY: 44-year-old female with history of Hodgkin's lymphoma diagnosed in September of 2012. Most recent PET/CT from 11/21/2014 demonstrated decreased size and uptake of anterior mediastinal mass favored to represent thymic hyperplasia or thymic rebound postchemotherapy, increased size and uptake of cervical lymph nodes representing either reactive change or early disease. Evaluate for subsequent treatment strategy. TECHNIQUE: ??12.5 mCi of F-18 FDG by IV in the left antecubital fossa. PET/CT image acquisition from top of the head to the feet after approx. 60 min. Post- injection with the CT being low-dose, non-contrast. No separate report for the CT was generated since it was of non-diagnostic quality. Blood glucose level at the time of injection was 91 mg/dl. FINDINGS: Comparison made to prior exam dated 11/21/2014. Head and neck: Physiologic FDG uptake is seen in the brain. Intense symmetric uptake in the tonsils this likely physiologic/inflammatory. Subcentimeter cervical lymph nodes demonstrate no significant FDG uptake. For reference a left level IIB lymph node measures 6 mm in the short axis with an SUV max of 1.7 (previously 2.3). No abnormal FDG focus is present. Chest: The great soft tissue density in the anterior mediastinum has further decreased in size and FDG uptake with SUV max of 1.4 (previously 1.7). A metabolic supraclavicular, axillary, mediastinal, or hilar lymphadenopathy is identified. No hypermetabolic pulmonary nodules are present. Bilateral dependent atelectasis is present. The lungs are free of focal consolidation. The heart size is normal. There is no pericardial or pleural effusion. Abdomen and pelvis: No abnormal focal FDG uptake is seen in the spleen, liver, pancreas, or adrenals. The spleen is normal in size and FDG uptake. Physiologic activity is seen in the urinary tract. Heterogenous uptake is likely physiologic. An intrauterine contraceptive device is incidentally noted. No hypermetabolic mesenteric, retroperitoneal, inguinal, or iliac lymphadenopathy is identified. For reference, SUVmax of liver is 3.1, previously 2.8. Musculoskeletal: Postoperative appearance of the instrumented posterior spinal fusion in the lower cervical and upper thoracic spine appears unchanged. Diffuse marrow uptake throughout the axial skeleton is likely reactive. A lytic lesion in the L5 vertebral body with a central sclerotic focus is unchanged in size. No focally increased uptake is seen in this region. Degenerative changes are present in the knees. Moderate uptake in the right shoulder and right gluteal musculature is likely physiologic. Procedure Note Marshal Paetl, DO - 10/30/2017 Procedure: PET/CT Study. Referring Physician: Dr. Castillo Max HISTORY: 44-year-old female with history of Hodgkin's lymphoma diagnosedin September of 2012. Most recent PET/CT from 11/21/2014 demonstrated decreasedsize and uptake of anterior mediastinal mass favored to represent thymichyperplasia or thymic rebound postchemotherapy, increased size and uptake of cervical lymph nodesrepresenting either reactive change or early disease. Evaluate forsubsequent treatment strategy. TECHNIQUE: 12.5 mCi of F-18 FDG by IV in the left antecubital fossa.PET/CT image acquisition from top of the head to the feet after approx. 60min. Post-injection with the CT being low-dose, non-contrast. No separatereport for the CT was generated since it was of non-diagnostic quality. Blood glucose level at the time ofinjection was 91 mg/dl. FINDINGS: Comparison made to prior exam dated 11/21/2014. Head and neck: Physiologic FDG uptake is seen in the brain. Intense symmetric uptake inthe tonsils this likely physiologic/inflammatory. Subcentimeter cervicallymph nodes demonstrate no significant FDG uptake. For reference a leftlevel IIB lymph node measures 6 mm in the short axis with an SUV max of 1.7 (previously 2.3). No abnormal FDGfocus is present. Chest: The great soft tissue density in the anterior mediastinum has furtherdecreased in size and FDG uptake with SUV max of 1.4 (previously 1.7). Ametabolic supraclavicular, axillary, mediastinal, or hilar lymphadenopathyis identified. No hypermetabolic pulmonary nodules are present. Bilateral dependent atelectasis is present.The lungs are free of focal consolidation. The heart size is normal. Thereis no pericardial or pleural effusion. Abdomen and pelvis: No abnormal focal FDG uptake is seen in the spleen, liver, pancreas, oradrenals. The spleen is normal in size and FDG uptake. Physiologicactivity is seen in the urinary tract. Heterogenous uptake is likelyphysiologic. An intrauterine contraceptive device is incidentally noted. No hypermetabolic mesenteric,retroperitoneal, inguinal, or iliac lymphadenopathy is identified. For reference, SUVmax of liver is 3.1, previously 2.8. Musculoskeletal: Postoperative appearance of the instrumented posterior spinal fusion inthe lower cervical and upper thoracic spine appears unchanged. Diffusemarrow uptake throughout the axial skeleton is likely reactive. A lyticlesion in the L5 vertebral body with a central sclerotic focus is unchanged in size. No focally increased uptakeis seen in this region. Degenerative changes are present in the knees.Moderate uptake in the right shoulder and right gluteal musculature islikely physiologic. IMPRESSION IMPRESSION: 1. No evidence of residual/recurrent disease. 2. Decreased size and FDG uptake of anterior mediastinal soft tissuedensity likely representing resolving thymic rebound status postchemotherapy. This report was approved by Turner Brooks M.D. on 07/16/201511:27 AM . IDr. MARSHAL D.O. have personally reviewed and interpreted thisexamination/study. This report was electronically signed by MARSHAL PATEL D.O. on07/16/2015 12:05 PM . Castillo Max MD NM ORDERABLES * GLUCOSE - POINT OF CARE (AMB) [facility] (07/16/2015) Marshal Patel DO LAB - POINT OF CARE ORDERABLES [facility] * GLUCOSE - POINT OF CARE (AMB) [facility] (07/16/2015) Glucose POCT 91 mg/dL [facility] HIS [facility] Capillary blood specimen (specimen) 07/16/2015 Marshal Patel DO LAB - POINT OF CARE ORDERABLES [facility] documented in this encounter Visit Diagnoses Diagnosis Hodgkin lymphoma (HCC) Hodgkin's disease, unspecified Fever Fever, unspecified documented in this encounter Care Teams Propellant Assembler Relationship Specialty Start Date End Date Blake Lindsey MD [address] [place] [address] PCP - General 05/20/16 documented as of this encounter
--- OUTSIDE RECORDS SUMMARY | 2024-07-29 17:23 | XMS_ITS | Encounter Summary ---
Author Organization [facility] Health Address [address] [place] [address] Care Team Providers Care Boiler Inspector Name Role Phone Blake Lindsey MD Primary Care Provider [phone] Encounter Details Date Type Department Care Team (Latest Contact Info) Description 04/03/2015 [facility] [address] [facility] [address] Reji Virk MD [address] [place], [place] [phone] Discharge Disposition: Home or Self Care Social [...] Diagnosis Comments XR THORACIC SPINE 2VW Routine 04/03/2015 9:48 AM CDT documented in this encounter Results * XR THORACIC SPINE 2VW (04/03/2015 9:48 AM CDT) Anatomical Region Laterality Modality Spine Other Impressions 04/03/2015 4:13 PM CDT Impression: 1. Instrumented posterior spine fusion from the level of C5 to the level of T12 with intact hardware. 2. T6 burst fracture, unchanged. Report dictated by Briana Muñoz MD. (Bulk Plant Operator). This report was approved ??by Briana Muñoz M.D. ?? on 04/03/2015 3:28 PM . I, Dr. ALICIA GREEN M.D. have personally reviewed and interpreted this examination/study. This report was electronically signed by ALICIA GREEN M.D. ??on 04/03/2015 4:13 PM . Narrative 04/03/2015 4:13 PM CDT Exam: ??XR SPINE THORACIC 2 VWS Date: 04/03/2015; 9:48 AM History: ??Broken hardware Comparison: Comparison is made with a prior study dated 03/26/2015. Findings: The patient is status post instrumented posterior spine fusion from the level of C5 to the level of T12 compressing of vertical rods and pedicle screws. The pedicle screws are seen at all levels with the exception of T5-T8. At T9, a single screw is present on the right. At T10, a single screw is present in the left. At T12, a single screw is present on the right. The hardware is intact without evidence of fracture or loosening. Cerclage wires are present posteriorly at the level of C7-T2. Skin carmen overlie the midline back. There is an unchanged burst fracture of the T6 vertebral body with approximately 70% height loss and without significant retropulsion. Procedure Note Alicia Green MD - 10/30/2017 Exam: XR SPINE THORACIC 2 VWS Date: 04/03/2015; 9:48 AM History: Broken hardware Comparison: Comparison is made with a prior study dated 03/26/2015. Findings: The patient is status post instrumented posterior spine fusion from thelevel of C5 to the level of T12 compressing of vertical rods and pediclescrews. The pedicle screws are seen at all levels with the exception ofT5-T8. At T9, a single screw is present on the right. At T10, a single screw is present in the left. AtT12, a single screw is present on the right. The hardware is intactwithout evidence of fracture or loosening. Cerclage wires are presentposteriorly at the level of C7-T2. Skin carmen overlie the midline back. There is an unchanged burst fracture ofthe T6 vertebral body with approximately 70% height loss and withoutsignificant retropulsion. IMPRESSION Impression: 1. Instrumented posterior spine fusion from the level of C5 to the levelof T12 with intact hardware. 2. T6 burst fracture, unchanged. Report dictated by Briana Muñoz MD. (Bulk Plant Operator). This report was approved by Briana Muñoz M.D. on 04/03/2015 3:28 PM. I, Dr. ALICIA GREEN M.D. have personally reviewed and interpreted thisexamination/study. This report was electronically signed by ALICIA GREEN M.D. on 04/03/20154:13 PM . Reji Virk MD DIAGNOSTIC IMAGING [facility] documented in this encounter Visit Diagnoses Diagnosis Follow-up examination documented in this encounter Care Teams Boiler Inspector Relationship Specialty Start Date End Date Blake Lindsey MD [address] [place] [id number] PCP - General 05/20/16 documented as of this encounter
--- OUTSIDE RECORDS SUMMARY | 2024-07-29 17:23 | XMS_ITS | Encounter Summary ---
Author Organization [facility] Health Address [address] [facility] [place] [address] Care Team Providers Care Algorithm Design Engineer Name Role Phone Blake Lindsey MD Primary Care Provider [phone] Encounter Details Date Type Department Care Team (Latest Contact Info) Description 05/23/2015 Hospital Outpatient Visit Historic [facility] [address] [place] [id number] Castillo Max MD [address] [place] [address] [address] [place] [address] Discharge Disposition: Home or Self Care Social [...] on filedocumented in this encounter Care Teams Algorithm Design Engineer Relationship Specialty Start Date End Date Blake Lindsey MD [address] [place] [address] PCP - General 05/20/16 documented as of this encounter
--- OUTSIDE RECORDS SUMMARY | 2024-07-29 17:23 | XMS_ITS | Encounter Summary ---
Author Organization [facility] Health Address [address] [place] [address] Care Team Providers Care Roughener Name Role Phone Blake Lindsey MD Primary Care Provider [phone] Encounter Details Date Type Department Care Team (Late st Contact Info) Description 09/18/2015 [facility] - Orthopedics [address] [place] [id number] Wai Lowry MD [address] [place] [address] [place] [address] Discharge Disposition: Home or Self [...] on filedocumented in this encounter Care Teams Roughener Relationship Specialty Start Date End Date Blake Lindsey MD [address] [place] [address] PCP - General 05/20/16 documented as of this encounter
--- OUTSIDE RECORDS SUMMARY | 2024-07-29 17:23 | XMS_ITS | Encounter Summary ---
Author Organization [facility] Health Address [address] [place] [address] Care Team Providers Care Liquified Natural Gas Technician Name Role Phone Blake Lindsey MD Primary Care Provider [phone] Encounter Details Date Type Department Care Team (Latest Contact Info) Description 10/25/2015 Hospital Outpatient Visit Historic [facility] [address] [place] [id number] Castillo Velásquez MD [address] [facility] 2L DIV OF ALLERGY/[place] [address] Discharge Disposition: Home or Self Care Social [...] Priority Date/Time Associated Diagnosis Comments FLOW CYTOMETRY DONOVAN MEDIUM PANEL Routine 10/25/2015 9:19 AM CDT STREP PNEUMO AB IGG 23 SEROTYPES PANEL Routine 10/25/2015 9:19 AM CDT TETANUS ANTIBODY Routine 10/25/2015 9:19 AM CDT DIPHTHERIA ANTIBODY Routine 10/25/2015 9 :19 AM CDT COMPLEMENT TOTAL Routine 10/25/2015 9:19 AM CDT CBC W AUTO DIFFERENTIAL Routine 10/25/2015 9:19 AM CDT IGM BLOOD Routine 10/25/2015 9:19 AM CDT IGG BLOOD Routine 10/25/2015 9:19 AM CDT IGA BLOOD Routine 10/25/2015 9:19 AM CDT CBC W AUTO DIFFERENTIAL Routine 10/25/2015 9:19 AM CDT documented in this encounter Results * (ABNORMAL) DIPHTHERIA ANTIBODY (10/25/2015 9:19 AM CDT) Diphtheria Antitoxoid Antibody <0.10(L) <0.10 IU/mL [facility] (LYN) Comment: ? Interpretation: ? Non-Protective ?<0.10 ? Protective ? >=0.10 For research use only. Blood specimen (specimen) BLOOD SPECIMEN / Unknown 10/25/2015 9:19 AM CDT 10/25/2015 10:05 AM CDT Narrative [facility] ([place]N) - 10/30/2015 1:16 PM CDT 0.5 mL serum red-top tube or gel-barrier tube, Refrigerate Performed at: ??01 - [facility] [address] ??[id number] Pile Operator: Kendrick Cardenas MD, Phone: ??[phone] Castillo Velásquez MD LAB - CHEMISTRY [facility] Performing Organization Address [facility] Co de Phone Number [facility] (LYN) * TETANUS ANTIBODY (10/25/2015 9:19 AM CDT) Tetanus Antibody IgG 0.57 <0.10 IU/mL [facility] (LYN) Comment: ? Interpretation: ? Non-Protective ?<0.10 ? Protective ? >=0.10 Results for this test are for research purposes only by the assay's laser operator. ??The performance characteristics of this product have not been established. ??Results should not be used as a diagnostic procedure without confirmation of the diagnosis by another medically established diagnostic product or procedure. Blood specimen (specimen) BLOOD SPECIMEN / Unknown 10/25/2015 9:19 AM CDT 10/25/2015 10:05 AM CDT Narrative [facility] ([place]N) - 10/29/2015 11:20 AM CDT 0.4 ml Serum, Red-top tube or gel-barrier tube, room temperature. Performed at: ??01 - [facility] [address] ??[id number] Pile Operator: Kendrick Cardenas MD, Phone: ??[phone] Castillo Velásquez MD LAB - CHEMISTRY [facility] Performing Organization Address [facility] Co de Phone Number [facility] TRAY (LYN) * (ABNORMAL) COMPLEMENT TOTAL (10/25/2015 9:19 AM CDT) Complement Total CH50 >60(H) 42 - 60 U/mL [facility] (BEAKER) Blood specimen (specimen) BLOOD SPECIMEN / Unknown 10/25/2015 9:19 AM CDT 10/25/2015 10:05 AM CDT Narrative [facility] (BEAKER) - 10/28/2015 3:15 PM CDT 1 mL serum, red-top tube or gel barrier tube, Allow specimen to clot at room temperature for 15 to 30 minutes. Remove serum after centrifugation, and place in plastic transport tube. Transport frozen Performed at: ??01 - [facility] ??[id number] Pile Operator: Edison Chavez PhD, Phone: ??[phone] Castillo Velásquez MD LAB - CHEMISTRY [facility] LA [facility] * STREP PNEUMO ANTIBODY IGG 23 SEROTYPES PANEL (10/25/2015 9:19 AM CDT) Pneumo Antibody Type 1 0.15 ug/mL [facility] (BEAKER) Pneumo Antibody Type 2 0.34 ug/mL [facility] (BEAKER) Pneumo Antibody Type 3 0.28 ug/mL [facility] (BEAKER) Pneumo Antibody Type 4 0.11 ug/mL [facility] (BEAKER) Pneumo Antibody Type 5 1.45 ug/mL [facility] (BEAKER) Pneumo Antibody Type 6B 1.12 ug/mL [facility] (BEAKER) Pneumo Antibody Type 7F 0.22 ug/mL [facility] (BEAKER) Pneumo Antibody Type 8 0.22 ug/mL [facility] (BEAKER) Pneumo Antibody Type 9N 0.21 ug/mL [facility] (BEAKER) Pneumo Antibody Type 9V 0.38 ug/mL [facility] (BEAKER) Pneumo Antibody Type 10A 0.75 ug/mL [facility] (BEAKER) Pneumo Antibody Type 11A 0.38 ug/mL [facility] (BEAKER) Pneumo Antibody Type 12F 0.28 ug/mL [facility] (BEAKER) Pneumo Antibody Type 14 1.67 ug/mL [facility] (BEAKER) Pneumo Antibody Type 15B 0.21 ug/mL [facility] (BEAKER) Pneumo Antibody Type 17F 0.84 ug/mL [facility] (BEAKER) Pneumo Antibody Type 18C 0.34 ug/mL [facility] (BEAKER) Pneumo Antibody Type 19A 1.34 ug/mL [facility] (BEAKER) Pneumo Antibody Type 19F 18.66 ug/mL [facility] (BEAKER) Pneumo Antibody Type 20 0.96 ug/mL [facility] (BEAKER) Pneumo Antibody Type 22F 1.08 ug/mL [facility] (BEAKER) Pneumo Antibody Type 23F 0.30 ug/mL [facility] (BEAKER) Pneumo Antibody Type 33F 0.38 ug/mL [facility] (BEAKER) Interpretation Pneumo Serotype See Note [facility] (BEAKER) Comment: INTERPRETIVE INFORMATION: Streptococcus pneumoniae Antibodies, IgG A pre- and post- vaccination sample comparison is required in order to assess the humoral immune response to vaccination with Streptococcus pneumoniae vaccine. Post vaccination samples should be obtained at 4 weeks post-immunization. A single sample provides only general immune status of an individual to various serotypes of pneumococci. Immune response to pneumococci may vary in different individuals based on age, vaccination status, immunologic competence and the serotype of the organism. Long-term protection is generally considered to be a serotype antibody level of 1.3 ug/ mL or greater. Following vaccination, an antibody ratio of less than twofold is considered a non-responder; a ratio of two- to fourfold is a weak responder; a ratio of fourfold or greater is a good responder. The higher the pre-vaccination antibody level for a specific pneumococcal serotype, the less likely the response will increase significantly after vaccination. An increased antibody level to 50-70 percent or more of the serotypes is thought to represent a normal humoral response. In the case of pure polysaccharide vaccine, indication of immune system competence is further delineated as an adequate response to at least 70 percent of the serotypes in the vaccine challenge for those 6-65 years of age, or to at least 50 percent of the serotypes in the vaccine challenge for those 2-5 years of age. Test developed and characteristics determined by [employer]. See Compliance Statement B: [employer]facts/Material Mix Blood specimen (specimen) BLOOD SPECIMEN / Unknown 10/25/2015 9:19 AM CDT 10/25/2015 10:05 AM CDT Narrative [facility] ([place]N) - 10/27/2015 8:41 PM CDT SST , Separate serum from cells DEMETRIO/ within 2 hours of collection, Send to Lab before noon Castillo Velásquez MD LAB - CHEMISTRY [facility]RISTOPHER DE LA GARZA [facility] (LYN) * FLOW CYTOMETRY PowerInbox PANEL (10/25/2015 9:19 AM CDT) [facility] Flow Cytometry Specimen: Blood Reference:[id number] Reason for test: Markers: 9 Flow Cytometry [...] %CD19 & CD27+IgD- ? 7 %CD19 & QT01-CkE+ ? 98 Cell Region A: Lymphocytes Surface [...] ?0-1 ? IgD ? 3-15 CD16 ?0-23 ?[place] ? 3-12 CD19 ?8-24 ?Lambda ?3-7 CD20 ?7-17 ?HLA-DR ?9-25 CD23 ?2-16 ?TdT ? 0 Test performed at [facility], [address] [place] [id number] This test was developed and its performance [...] perform high complexity clinical testing. By law [place], CD4 lymphocyte counts on patients with HIV infection must be reported by the physician to the [facility] Health authority. [facility] (LYN) Blood specimen (specimen) BLOOD SPECIMEN / Unknown 10/25/2015 9:19 AM CDT 10/25/2015 10:05 AM CDT Castillo Velásquez MD LAB - PATHOLOGY/CYTO LOGY ORDERABLES [facility] (BEAKER) * IGM BLOOD (10/25/2015 9:19 AM CDT) IgM 210 22 - 293 mg/dL [facility] Blood specimen (specimen) BLOOD SPECIMEN / Unknown 10/25/2015 9:19 AM CDT 10/25/2015 10:05 AM CDT Castillo Velásquez MD LAB - CHEMISTRY [facility]STOPHER DE LA GARZA [address] [phone] * IGG BLOOD (10/25/2015 9:19 AM CDT) IgG 794 540 - 1,822 mg/dL [facility] Blood specimen (specimen) BLOOD SPECIMEN / Unknown 10/25/2015 9:19 AM CDT 10/25/2015 10:05 AM CDT [facility] - 10/25/2015 10:40 AM CDT 1 mL serum, Red- top tube or gel barrier tube Castillo Velásquez MD LAB - CHEMISTRY [facility]RISTOPHER DE LA GARZA Performing Organization Address City/[facility]/ZIP Co de Phone Number [address] [phone] * IGA BLOOD (10/25/2015 9:19 AM CDT) IgA 204 87 - 534 mg/dL [facility] Blood specimen (specimen) BLOOD SPECIMEN / Unknown 10/25/2015 9:19 AM CDT 10/25/2015 10:05 AM CDT [facility] - 10/25/2015 10:40 AM CDT 1 mL serum, Red-top tube or gel barrier tube, Room temperture Castillo Velásquez MD LAB - CHEMISTRY CHRISTOPHER DE LA GARZA [facility] [address] [phone] * (ABNORMAL) CBC W AUTO DIFFERENTIAL (10/25/2015 9:19 AM CDT) WBC 6.9 3.5 - 10.5 10? 3 /uL [facility] RBC 4.44 3.90 - 5.00 10? 6 /uL [facility] Hemoglobin 14.6 12.0 - 15.5 g/dL [facility] Hematocrit 42.4 35.0 - 45.0 % [facility] MCV 95.5 81.0 - 97.0 fL [facility] MCH 32.9 28.0 - 34.0 pg [facility] MCHC 34.4 32.0 - 36.0 g/dL [facility] Platelet Count 156 150 - 400 10? 3 /uL [facility] RDW-SD 47.3 36.0 - 50.0 fL [facility] RDW-CV 13.6 11.2 - 14.8 % [facility] MPV 9.1(L) 9.3 - 12.8 fL [facility] Neutrophils % 63.0 35.0 - 70.0 % [facility] Lymphocytes % 27.6 19.7 - 55.1 % [facility] Monocytes % 6.5 3.0 - 15.0 % [facility] Eosinophils % 2.6 0.0 - 6.0 % [facility] Basophil % 0.3 0.0 - 1.5 % [facility] Neutrophils Absolute 4.3 1.6 - 7.0 10? 3 /uL [facility] Lymphocyte Absolute 1.9 0.8 - 2.9 10? 3 /uL [facility] Monocytes Absolute 0.45 0.14 - 0.66 10? 3 /uL [facility] Eosinophils Absolute 0.18 0.00 - 0.22 10? 3 /uL [facility] Basophils Absolute 0.02 0.00 - 0.06 10? 3 /uL [facility] Immature Granulocytes % 0.1 0.0 - 1.0 % [facility] Blood specimen (specimen) BLOOD SPECIMEN / Unknown 10/25/2015 9:19 AM CDT 10/25/2015 10:05 AM CDT Narrative [facility] - 10/25/2015 10:14 AM CDT Whole blood fill tube to capacity, Lavender- top tube, Room temperature Castillo Velásquez MD LAB - HEMATOLOGY MELISSA YADAV Performing Organization Address [facility] Co de Phone Number [facility] [address] [phone] * CBC W AUTO DIFFERENTIAL (10/25/2015 9:19 AM CDT) Blood specimen (specimen) BLOOD SPECIMEN / Unknown 10/25/2015 9:19 AM CDT [facility] - 10/25/2015 10:14 AM CDT Whole blood fill tube to capacity, Lavender- top tube, Room temperature The following orders were created for panel order CBC W/ DIFFERENTIAL - Order with [id number]. Procedure ? Abnormality ? Status ? --------- ? ------ ? CBC WITH DIFFERENTIAL[[id number]] ? Abnormal ?Final result ? Please view results for these tests on the individual orders. Castillo Velásquez MD LAB - HEMATOLOGY MELISSA YADAV Performing Organization Address [facility] Co de Phone Number [facility] [address] documented in this encounter Visit Diagnoses Diagnosis Infectious disease Unspecified infectious and parasitic diseases documented in this encounter Care Teams Liquified Natural Gas Technician Relationship Specialty Start Date End Date Blake Lindsey MD [address] [place] [address] PCP - General 05/20/16 documented as of this encounter
--- OUTSIDE RECORDS SUMMARY | 2024-07-29 17:23 | XMS_ITS | Encounter Summary ---
Author Organization [facility] Health Address [address] [place] [address] Care Team Providers Care Wind Turbine Design Engineer Name Role Phone Blake Lindsey MD Primary Care Provider [phone] Encounter Details Date Type Department Care Team (Latest Contact Info) Description 02/05[facility]2015 [facility] [address] [facility] [place] [address] Reji Virk MD [address] [place], [place] [id number] Discharge Disposition: Home or Self Care Social [...] Diagnosis Comments XR THORACIC SPINE 2VW Routine 02/05/2015 11:01 AM CDT XR CERVICAL SPINE 4 OR 5VW Routine 02/05/2015 10:23 AM CDT documented in this encounter Results * XR THORACIC SPINE 2VW (02/05/2015 11:01 AM CDT) Anatomical Region Laterality Modality Spine Other Impressions 02/05/2015 3:07 PM CDT Impression: 1. Instrumented spinal fusion from C5-T12. 2. Increased fracture gap of the right derek at the level of T1. 3. New fracture of the left derek at the level of T1. 4. Redemonstration of a T6 burst fracture without interval height loss. Findings of hardware fracture discussed with Dr. Amanda of Ortho Spine by Dr. Mcallister on 02/05/2015 at 2:21 PM. Report dictated by Kristopher Mcallister M.D. (resident). This report was approved ??by Kristopher Mcallister M.D. ?? on 02/05/2015 2:21 PM . I, Dr. EMIL MALONE MD have personally reviewed and interpreted this examination/study. This report was electronically signed by EMIL MALONE MD ??on 02/05/2015 3:07 PM . Narrative 02/05/2015 3:07 PM CDT Examination: 1. Cervical spine, 5 views 2. Thoracic spine, 2 views. History: Cervicothoracic spinal fusion. Comparison: 11/06/2014 Findings: Cervical spine: There is instrumented posterior fusion extending from the C5 level through the T12 level. Pedicle screws are seen at all levels with exception of the T1 and T5-T8 levels; at T9, a single screw is present on the right and at T10 a single screw is present on the left. The fracture of the right derek at the level of T1 is redemonstrated with increased gap measuring 3 mm. There is a new fracture of the left derek at the level of T1 with a 3 mm gap. There is cervical kyphosis centered at C5-6. There is unchanged mild intervertebral disc space narrowing at C5-6 and C6-7. The vertebral body heights are preserved. There is no prevertebral soft tissue swelling. No subluxation is identified with flexion or extension views. There is slight motion of the fractured derek ends with flexion and extension. Thoracic spine: There is instrumented posterior fusion extending from the C5 level through the T12 level. Pedicle screws are seen at all levels with exception of the T1 and T5-T8 levels; at T9, a single screw is present on the right and at T10 a single screw is present on the left. There are fractures of both rods at the level of T1 as mentioned above. A Burst fracture of T6 with 50-75% height loss demonstrates no interval progression of height loss. The alignment is normal. The hardware appears intact. Procedure Note Emil Malone MD - 10/30/2017 Examination: 1. Cervical spine, 5 views 2. Thoracic spine, 2 views. History: Cervicothoracic spinal fusion. Comparison: 11/06/2014 Findings: Cervical spine: There is instrumented posterior fusion extending from the C5 level throughthe T12 level. Pedicle screws are seen at all levels with exception of theT1 and T5-T8 levels; at T9, a single screw is present on the right and atT10 a single screw is present on the left. The fracture of the right derek at the level of T1 isredemonstrated with increased gap measuring 3 mm. There is a new fractureof the left derek at the level of T1 with a 3 mm gap. There is cervicalkyphosis centered at C5-6. There is unchanged mild intervertebral disc space narrowing at C5-6 and C6-7. The vertebralbody heights are preserved. There is no prevertebral soft tissue swelling.No subluxation is identified with flexion or extension views. There isslight motion of the fractured derek ends with flexion and extension. Thoracic spine: There is instrumented posterior fusion extending from the C5 level throughthe T12 level. Pedicle screws are seen at all levels with exception of theT1 and T5-T8 levels; at T9, a single screw is present on the right and atT10 a single screw is present on the left. There are fractures of both rods at the level of T1 asmentioned above. A Burst fracture of T6 with 50-75% height lossdemonstrates no interval progression of height loss. The alignment isnormal. The hardware appears intact. IMPRESSION Impression: 1. Instrumented spinal fusion from C5-T12. 2. Increased fracture gap of the right derek at the level of T1. 3. New fracture of the left derek at the level of T1. 4. Redemonstration of a T6 burst fracture without interval height loss. Findings of hardware fracture discussed with Dr. Amanda of Ortho Spineby Dr. Mcallister on 02/05/2015 at 2:21 PM. Report dictated by Kristopher Mcallister M.D. (resident). This report was approved by Kristopher Mcallister M.D. on 02/05/2015 2:21 PM . I, Dr. EMIL MALONE MD have personally reviewed and interpreted thisexamination/study. This report was electronically signed by EMIL MALONE MD on 02/05/20153:07 PM . Reji Virk MD DIAGNOSTIC IMAGING O RDERABLES * XR CERVICAL SPINE 4 OR 5VW (02/05/2015 10:23 AM CDT) Anatomical Region Laterality Modality Spine Other Impressions 02/05/2015 3:07 PM CDT Impression: 1. Instrumented spinal fusion from C5-T12. 2. Increased fracture gap of the right derek at the level of T1. 3. New fracture of the left derek at the level of T1. 4. Redemonstration of a T6 burst fracture without interval height loss. Findings of hardware fracture discussed with Dr. Amanda of Ortho Spine by Dr. Mcallister on 02/05/2015 at 2:21 PM. Report dictated by Kristopher Mcallister M.D. (resident). This report was approved ??by Kristopher Mcallister M.D. ?? on 02/05/2015 2:21 PM . I, Dr. EMIL MALONE MD have personally reviewed and interpreted this examination/study. This report was electronically signed by EMIL MALONE MD ??on 02/05/2015 3:07 PM . Narrative 02/05/2015 3:07 PM CDT Examination: 1. Cervical spine, 5 views 2. Thoracic spine, 2 views. History: Cervicothoracic spinal fusion. Comparison: 11/06/2014 Findings: Cervical spine: There is instrumented posterior fusion extending from the C5 level through the T12 level. Pedicle screws are seen at all levels with exception of the T1 and T5-T8 levels; at T9, a single screw is present on the right and at T10 a single screw is present on the left. The fracture of the right derek at the level of T1 is redemonstrated with increased gap measuring 3 mm. There is a new fracture of the left derek at the level of T1 with a 3 mm gap. There is cervical kyphosis centered at C5-6. There is unchanged mild intervertebral disc space narrowing at C5-6 and C6-7. The vertebral body heights are preserved. There is no prevertebral soft tissue swelling. No subluxation is identified with flexion or extension views. There is slight motion of the fractured derek ends with flexion and extension. Thoracic spine: There is instrumented posterior fusion extending from the C5 level through the T12 level. Pedicle screws are seen at all levels with exception of the T1 and T5-T8 levels; at T9, a single screw is present on the right and at T10 a single screw is present on the left. There are fractures of both rods at the level of T1 as mentioned above. A Burst fracture of T6 with 50-75% height loss demonstrates no interval progression of height loss. The alignment is normal. The hardware appears intact. Procedure Note Emil Malone MD - 10/30/2017 Examination: 1. Cervical spine, 5 views 2. Thoracic spine, 2 views. History: Cervicothoracic spinal fusion. Comparison: 11/06/2014 Findings: Cervical spine: There is instrumented posterior fusion extending from the C5 level throughthe T12 level. Pedicle screws are seen at all levels with exception of theT1 and T5-T8 levels; at T9, a single screw is present on the right and atT10 a single screw is present on the left. The fracture of the right derek at the level of T1 isredemonstrated with increased gap measuring 3 mm. There is a new fractureof the left derek at the level of T1 with a 3 mm gap. There is cervicalkyphosis centered at C5-6. There is unchanged mild intervertebral disc space narrowing at C5-6 and C6-7. The vertebralbody heights are preserved. There is no prevertebral soft tissue swelling.No subluxation is identified with flexion or extension views. There isslight motion of the fractured derek ends with flexion and extension. Thoracic spine: There is instrumented posterior fusion extending from the C5 level throughthe T12 level. Pedicle screws are seen at all levels with exception of theT1 and T5-T8 levels; at T9, a single screw is present on the right and atT10 a single screw is present on the left. There are fractures of both rods at the level of T1 asmentioned above. A Burst fracture of T6 with 50-75% height lossdemonstrates no interval progression of height loss. The alignment isnormal. The hardware appears intact. IMPRESSION Impression: 1. Instrumented spinal fusion from C5-T12. 2. Increased fracture gap of the right derek at the level of T1. 3. New fracture of the left derek at the level of T1. 4. Redemonstration of a T6 burst fracture without interval height loss. Findings of hardware fracture discussed with Dr. Amanda of Ortho Spineby Dr. Mcallister on 02/05/2015 at 2:21 PM. Report dictated by Kristopher Mcallister M.D. (resident). This report was approved by Kristopher Mcallister M.D. on 02/05/2015 2:21 PM . I, Dr. EMIL MALONE MD have personally reviewed and interpreted thisexamination/study. This report was electronically signed by EMIL MALONE MD on 02/05/20153:07 PM . Reji Virk MD DIAGNOSTIC IMAGING O RDERABLES documented in this encounter Visit Diagnoses Diagnosis Arthrodesis status Backache Backache, unspecified documented in this encounter Care Teams Wind Turbine Design Engineer Relationship Specialty Start Date End Date Blake Lindsey MD [address] [place] [address] PCP - General 05/20/16 documented as of this encounter
--- OUTSIDE RECORDS SUMMARY | 2024-07-29 17:23 | XMS_ITS | Encounter Summary ---
Author Organization [facility] Health Address [address] [place] [address] Care Team Providers Care Senior Environmental Consultant Name Role Phone Blake Lindsey MD Primary Care Provider [phone] Encounter Details Date Type Department Care Team (Latest Contact Info) Description 11/06/2014 [facility] [address] [facility] [place] [address] Reji Virk MD [address] [place], [place] [id number] Discharge Disposition: Home or Self Care Social [...] XR CERVICAL SPINE 2 OR 3VW Routine 11/06/2014 8:58 AM CDT XR THORACIC SPINE 2VW Routine 11/06/2014 8:57 AM CDT documented in this encounter Results * XR CERVICAL SPINE 2 OR 3VW (11/06/2014 8:58 AM CDT) Anatomical Region Laterality Modality Spine Other Impressions 11/06/2014 11:47 AM CDT Impression: 1. Instrumented spinal fusion from C5-T12. 2. New fracture of the right derek at the level of T1. 3. Redemonstration of a T6 burst fracture. This report has been dictated by Navjot Hernandez M.D. (Resident). Dr. Hernandez communicated the finding of fractured derek to Dr. Misha Zavala of orthopedic surgery at 10:45 AM on 11/06/14. I, Dr. EMIL MALONE MD have personally reviewed and interpreted this examination/study. This report was electronically signed by EMIL MALONE MD ??on 11/06/2014 11:47 AM . Narrative 11/06/2014 11:47 AM CDT Exam: 1. Cervical spine, 2 views 2. Thoracic spine, 2 views. History: Cervicothoracic spinal fusion. Comparison: 01/31/2013 Findings: Cervical spine: There is a posterior fusion extending from the C5 level through the T12 level. Pedicle screws are seen at all levels with exception of the T1 and T5-T8 levels; at T9, a single screw is present on the right and at T10 a single screw is present on the left. There is a new linear lucency within the right derek at the level of T1 representing a fracture. There is cervical kyphosis centered at C5-6. There is unchanged mild intervertebral disc space narrowing at C5-6 and C6-7. The vertebral body heights are preserved. There is no prevertebral soft tissue swelling. Thoracic spine: There is a posterior fusion extending from the C5 level through the T12 level. Pedicle screws are seen at all levels with exception of the T1 and T5-T8 levels; at T9, a single screw is present on the right and at T10 a single screw is present on the left. There is a new linear lucency within the right derek at the level of T1 representing a fracture. A burst fracture of T6 with 50-75% height loss demonstrates apparent slight interval progression of height loss although this could be due to differences in projection. The alignment is normal. The hardware appears intact. Gastric distention is noted. Procedure Note Emil Malone MD - 10/30/2017 Exam: 1. Cervical spine, 2 views 2. Thoracic spine, 2 views. History: Cervicothoracic spinal fusion. Comparison: 01/31/2013 Findings: Cervical spine: There is a posterior fusion extending from the C5 level through the [id number]. Pedicle screws are seen at all levels with exception of the T1 andT5-T8 levels; at T9, a single screw is present on the right and at T10 asingle screw is present on the left. There is a new linear lucency within the right derek at the level ofT1 representing a fracture. There is cervical kyphosis centered at C5-6.There is unchanged mild intervertebral disc space narrowing at C5-6 andC6-7. The vertebral body heights are preserved. There is no prevertebral soft tissue swelling. Thoracic spine: There is a posterior fusion extending from the C5 level through the [id number]. Pedicle screws are seen at all levels with exception of the T1 andT5-T8 levels; at T9, a single screw is present on the right and at T10 asingle screw is present on the left. There is a new linear lucency within the right derek at the level ofT1 representing a fracture. A burst fracture of T6 with 50-75% height lossdemonstrates apparent slight interval progression of height loss althoughthis could be due to differences in projection. The alignment is normal. The hardware appears intact.Gastric distention is noted. IMPRESSION Impression: 1. Instrumented spinal fusion from C5-T12. 2. New fracture of the right derek at the level of T1. 3. Redemonstration of a T6 burst fracture. This report has been dictated by Navjot Hernandez M.D. (Resident). communicated the finding of fractured derek to Dr. Misha Zavala oforthopedic surgery at 10:45 AM on 11/06/14. I, Dr. EMIL MALONE MD have personally reviewed and interpreted thisexamination/study. This report was electronically signed by EMIL MALONE MD on 11/06/201411:47 AM . Reji Virk MD DIAGNOSTIC IMAGING O RDERABLES * XR THORACIC SPINE 2VW (11/06/2014 8:57 AM CDT) Anatomical Region Laterality Modality Spine Other Impressions 11/06/2014 11:47 AM CDT Impression: 1. Instrumented spinal fusion from C5-T12. 2. New fracture of the right derek at the level of T1. 3. Redemonstration of a T6 burst fracture. This report has been dictated by Navjot Hernandez M.D. (Resident). Dr. Hernandez communicated the finding of fractured derek to Dr. Misha Zavala of orthopedic surgery at 10:45 AM on 11/06/14. I, Dr. EMIL MALONE MD have personally reviewed and interpreted this examination/study. This report was electronically signed by EMIL MALONE MD ??on 11/06/2014 11:47 AM . Narrative 11/06/2014 11:47 AM CDT Exam: 1. Cervical spine, 2 views 2. Thoracic spine, 2 views. History: Cervicothoracic spinal fusion. Comparison: 01/31/2013 Findings: Cervical spine: There is a posterior fusion extending from the C5 level through the T12 level. Pedicle screws are seen at all levels with exception of the T1 and T5-T8 levels; at T9, a single screw is present on the right and at T10 a single screw is present on the left. There is a new linear lucency within the right derek at the level of T1 representing a fracture. There is cervical kyphosis centered at C5-6. There is unchanged mild intervertebral disc space narrowing at C5-6 and C6-7. The vertebral body heights are preserved. There is no prevertebral soft tissue swelling. Thoracic spine: There is a posterior fusion extending from the C5 level through the T12 level. Pedicle screws are seen at all levels with exception of the T1 and T5-T8 levels; at T9, a single screw is present on the right and at T10 a single screw is present on the left. There is a new linear lucency within the right derek at the level of T1 representing a fracture. A burst fracture of T6 with 50-75% height loss demonstrates apparent slight interval progression of height loss although this could be due to differences in projection. The alignment is normal. The hardware appears intact. Gastric distention is noted. Procedure Note Emil Malone MD - 10/30/2017 Exam: 1. Cervical spine, 2 views 2. Thoracic spine, 2 views. History: Cervicothoracic spinal fusion. Comparison: 01/31/2013 Findings: Cervical spine: There is a posterior fusion extending from the C5 level through the [id number]. Pedicle screws are seen at all levels with exception of the T1 andT5-T8 levels; at T9, a single screw is present on the right and at T10 asingle screw is present on the left. There is a new linear lucency within the right derek at the level ofT1 representing a fracture. There is cervical kyphosis centered at C5-6.There is unchanged mild intervertebral disc space narrowing at C5-6 andC6-7. The vertebral body heights are preserved. There is no prevertebral soft tissue swelling. Thoracic spine: There is a posterior fusion extending from the C5 level through the [id number]. Pedicle screws are seen at all levels with exception of the T1 andT5-T8 levels; at T9, a single screw is present on the right and at T10 asingle screw is present on the left. There is a new linear lucency within the right derek at the level ofT1 representing a fracture. A burst fracture of T6 with 50-75% height lossdemonstrates apparent slight interval progression of height loss althoughthis could be due to differences in projection. The alignment is normal. The hardware appears intact.Gastric distention is noted. IMPRESSION Impression: 1. Instrumented spinal fusion from C5-T12. 2. New fracture of the right derek at the level of T1. 3. Redemonstration of a T6 burst fracture. This report has been dictated by Navjot Hernandez M.D. (Resident). communicated the finding of fractured derek to Dr. Misha Zavala oforthopedic surgery at 10:45 AM on 11/06/14. I, Dr. EMIL MALONE MD have personally reviewed and interpreted thisexamination/study. This report was electronically signed by EMIL MALONE MD on 11/06/201411:47 AM . Reji Virk MD DIAGNOSTIC IMAGING O RDERABLES documented in this encounter Visit Diagnoses Diagnosis Cervicalgia documented in this encounter Care Teams Senior Environmental Consultant Relationship Specialty Start Date End Date Blake Lindsey MD [address] [place] [address] PCP - General 05/20/16 documented as of this encounter
--- OUTSIDE RECORDS SUMMARY | 2024-07-29 17:23 | XMS_ITS | Encounter Summary ---
Author Organization [facility] Health Address [address] [place] [address] Care Team Providers Care Data Management Specialist Name Role Phone Blake Lindsey MD Primary Care Provider [phone] Encounter Details Date Type Department Care Team (Latest Contact Info) Description 04/10/2015 [facility] - [facility] [address] [facility], [facility] [place] [address] Reji Virk MD [address] [place], [place] [id number] Discharge Disposition: Home or Self Care Social [...] on filedocumented in this encounter Care Teams Data Management Specialist Relationship Specialty Start Date End Date Blake Lindsey MD [address] [place] [address] PCP - General 05/20/16 documented as of this encounter
--- OUTSIDE RECORDS SUMMARY | 2024-07-29 17:23 | XMS_ITS | Encounter Summary ---
Author Organization [facility] Health Address [address] [facility] [place] [address] Care Team Providers Care Nurse Chemical Dependency Name Role Phone Blake Lindsey MD Primary Care Provider [phone] Encounter Details Date Type Department Care Team (Latest Contact Info) Description 05/31/2014 Hospital Outpatient Visit Historic [facility] MAIN LAB [address] [place] [id number] Castillo Max MD [address] [place] [address] [address] [place] [id number] Discharge Disposition: Home or Self Care Social [...] Diagnosis Comments CBC W AUTO DIFFERENTIAL STAT 05/31/2014 1:08 PM CDT COMPREHENSIVE METABOLIC PANEL STAT 05/31/2014 1:08 PM CDT LDH BLOOD STAT 05/31/2014 1:08 PM CDT CBC W AUTO DIFFERENTIAL STAT 05/31/2014 1:08 PM CDT documented in this encounter Results * LDH BLOOD (05/31/2014 1:08 PM CDT) LDH Total 176 125 - 243 Units/L [facility] Blood specimen (specimen) BLOOD SPECIMEN / Unknown 05/31/2014 1:08 PM CDT 05/31/2014 1:44 PM CDT Castillo Max MD LAB - CHEMISTRY OR DERABLES Performing Organization Address City/State/[facility] Co de Phone Number [address] [phone] * (ABNORMAL) COMPREHENSIVE METABOLIC PANEL (05/31/2014 1:08 PM CDT) BUN 14 7 - 26 mg/dL [facility] Creatinine 0.8 0.6 - 1.2 mg/dL [facility] Sodium 143 136 - 145 mmol/L [facility] Potassium 3.8 3.5 - 4.5 mmol/L [facility] Chloride 109(H) 98 - 107 mmol/L [facility] CO2 24 22 - 29 mmol/L [facility] Glucose 105 70 - 115 mg/dL [facility] Calcium 9.3 8.4 - 10.2 mg/dL [facility] Protein Total 6.6 6.0 - 8.3 g/dL [facility] Albumin 3.7 3.4 - 5.0 g/dL [facility] Bilirubin Total 0.4 0.2 - 1.2 mg/dL [facility] Alkaline Phosphatase 102 40 - 150 Units/L [facility] ALT 12 0 - 55 Units/L [facility] AST 13 5 - 34 Units/L [facility] Anion Gap 14 8 - 18 [facility] BUN/Creatinine Ratio 18 7 - 23 [facility] Osmolality Calculated 282 270 - 300 mOsm/kg [facility] Albumin/Globulin Ratio 1.3 1.1 - 2.3 [facility] eGFR >60 >60 mL/min/1.7 3 m2 [facility] Blood specimen (specimen) BLOOD SPECIMEN / Unknown 05/31/2014 1:08 PM CDT 05/31/2014 1:44 PM CDT Castillo Max MD LAB - CHEMISTRY OR DERABLES Performing Organization Address City/State/[facility] Co de Phone Number [facility] [address] [phone] * (ABNORMAL) CBC W AUTO DIFFERENTIAL (05/31/2014 1:08 PM CDT) WBC 5.1 3.5 - 10.5 10? 3 /uL [facility] RBC 3.94 3.90 - 5.00 10? 6 /uL [facility] Hemoglobin 13.3 12.0 - 15.5 g/dL [facility] Hematocrit 38.7 35.0 - 45.0 % [facility] MCV 98.2(H) 81.0 - 97.0 fL [facility] MCH 33.8 28.0 - 34.0 pg [facility] MCHC 34.4 32.0 - 36.0 g/dL [facility] Platelet Count 114(L) 150 - 400 10? 3 /uL [facility] RDW-SD 46.7 36.0 - 50.0 fL [facility] RDW-CV 12.9 11.2 - 14.8 % [facility] MPV 8.7(L) 9.3 - 12.8 fL [facility] Neutrophils % 52.8 35.0 - 70.0 % [facility] Lymphocytes % 35.0 19.7 - 55.1 % [facility] Monocytes % 8.1 3.0 - 15.0 % [facility] Eosinophils % 3.5 0.0 - 6.0 % [facility] Basophil % 0.4 0.0 - 1.5 % [facility] Neutrophils Absolute 2.7 1.6 - 7.0 10? 3 /uL [facility] Lymphocyte Absolute 1.8 0.8 - 2.9 10? 3 /uL [facility] Monocytes Absolute 0.41 0.14 - 0.66 10? 3 /uL [facility] Eosinophils Absolute 0.18 0.00 - 0.22 10? 3 /uL [facility] Basophils Absolute 0.02 0.00 - 0.06 10? 3 /uL [facility] Immature Granulocytes % 0.2 0.0 - 1.0 % [facility] Blood specimen (specimen) BLOOD SPECIMEN / Unknown 05/31/2014 1:08 PM CDT 05/31/2014 1:11 PM CDT Castillo Max MD LAB - HEMATOLOGY O ROSSI Performing Organization Address [facility] Co de Phone Number [facility] [address] [phone] * CBC W AUTO DIFFERENTIAL (05/31/2014 1:08 PM CDT) Blood specimen (specimen) BLOOD SPECIMEN / Unknown 05/31/2014 1:08 PM CDT Narrative [facility] - 05/31/2014 1:13 PM CDT The following orders were created for panel order CBC with Differential. Procedure ? Abnormality ? Status ? --------- ? ------ ? CBC WITH DIFFERENTIAL[[id number]] ? Abnormal ?Final result ? Please view results for these tests on the individual orders. Castillo Max MD LAB - HEMATOLOGY O ROSSI Performing Organization Address [facility] Co de Phone Number [facility] [address] [place] [address], [facility] documented in this encounter Visit Diagnoses Diagnosis Hodgkin's disease (HCC) documented in this encounter Care Teams Nurse Chemical Dependency Relationship Specialty Start Date End Date Blake Lindsey MD [address] [place] [address] PCP - General 05/20/16 documented as of this encounter
--- OUTSIDE RECORDS SUMMARY | 2024-07-29 17:23 | XMS_ITS | Encounter Summary ---
Author Organization [facility] Health Address [address] [facility] [place] [address] Care Team Providers Care Supervisor Display Fabrication Name Role Phone Blake Lindsey MD Primary Care Provider [phone] Encounter Details Date Type Department Care Team (Latest Contact Info) Description 10/24/2013 [facility] [address] [facility], [facility] [place] [address] Reji Virk MD [address] [place], [place] [id number] Discharge Disposition: Home or Self Care Social [...] filedocumented in this encounter Care Teams Supervisor Display Fabrication Relationship Specialty Start Date End Date Blake Lindsey MD [address] [place] [address] PCP - General 05/20/16 documented as of this encounter
--- OUTSIDE RECORDS SUMMARY | 2024-07-29 17:23 | XMS_ITS | Encounter Summary ---
Author Organization [facility] Health Address [address] [facility] [place] [address] Care Team Providers Care Cotton Stomper Name Role Phone Blake Lindsey MD Primary Care Provider [phone] Encounter Details Date Type Department Care Team (Latest Contact Info) Description 12/09/2015 Hospital Outpatient Visit Historic [facility] MAIN LAB [address] [place] [phone] Castillo Velásquez MD [address] [facility] [address] [place] [address] Discharge Disposition: Home or Self Care Social [...] Procedure Name Priority Date/Time Associated Diagnosis Comments STREP PNEUMO AB IGG 23 SEROTYPES PANEL Routine 12/09/2015 3:14 PM CDT documented in this encounter Results * STREP PNEUMO ANTIBODY IGG 23 SEROTYPES PANEL (12/09/2015 3:14 PM CDT) Pneumo Antibody Type 1 0.72 ug/mL [facility] [...] Type 22F 1.30 ug/mL [facility] (BEAKER) Pneumo Antibody Type 23F 0.40 ug/mL [facility] (BEAKER) Pneumo Antibody Type 33F 0.56 ug/mL [facility] (BEAKER) Interpretation Pneumo Serotype See Note [facility] (LYN) Comment: INTERPRETIVE INFORMATION: Streptococcus pneumoniae Antibodies, IgG [...] 2015;22(2):148-152. Test developed and characteristics determined by [employer]. See Compliance Statement B: [email or web address] 12/09/2015 3:14 PM CDT 12/09/2015 3:24 PM CDT Castillo Velásquez MD LAB - CHEMISTRY [facility] Organization Address City/State/ZIP Co de Phone Number [facility] (LYN) documented in this encounter Visit Diagnoses Not on filedocumented in this encounter Care Teams Cotton Stomper Relationship Specialty Start Date End Date Blake Lindsey MD [address] [place] [address] PCP - General 05/20/16 documented as of this encounter
--- OUTSIDE RECORDS SUMMARY | 2024-07-29 17:23 | XMS_ITS | Encounter Summary ---
Author Organization [facility] Health Address [address] [facility] [place] [address] Care Team Providers Care Fisher Eel Spear Name Role Phone Blake Lindsey MD Primary Care Provider [phone] Encounter Details Date Type Department Care Team (Latest Contact Info) Description 05/08/2015 [facility] [address] [facility], [facility] [place] [address] Reji Virk MD [address] [place], [place] [phone] Discharge Disposition: Home or Self Care Social [...] Diagnosis Comments XR THORACIC SPINE 2VW Routine 05/08/2015 11:42 AM CDT documented in this encounter Results * XR THORACIC SPINE 2VW (05/08/2015 11:42 AM CDT) Anatomical Region Laterality Modality Spine Other Impressions 05/08/2015 3:32 PM CDT IMPRESSION: Unchanged postoperative appearance of instrumented posterior spine fusion from C5-T12 for a nonretropulsed T6 burst fracture. Dictated by Héctor Kemp MD (residential program coordinator). This report was approved ??by Héctor Kemp ?? on 05/08/2015 1:50 PM . I, Dr. ALICIA GREEN M.D. have personally reviewed and interpreted this examination/study. This report was electronically signed by ALICIA GREEN M.D. ??on 05/08/2015 3:32 PM . Narrative 05/08/2015 3:32 PM CDT EXAMINATION: XR SPINE THORACIC 2 VWS HISTORY: post op COMPARISON: Comparison is made with a study from 04/03/2015. FINDINGS: Postoperative appearance of instrumented posterior spinal fusion from C5-T12 consisting of multiple pedicle screws, two vertical rods, and cerclage wires demonstrates intact hardware. Skin carmen have been removed. The vertebral bodies are normally aligned. A nonretropulsed T6 burst fracture approximately 70% height loss is unchanged. The intervertebral disc spaces are maintained. Procedure Note Alicia Green MD - 10/30/2017 EXAMINATION: XR SPINE THORACIC 2 VWS HISTORY: post op COMPARISON: Comparison is made with a study from 04/03/2015. FINDINGS: Postoperative appearance of instrumented posterior spinal fusion fromC5-T12 consisting of multiple pedicle screws, two vertical rods, andcerclage wires demonstrates intact hardware. Skin carmen have beenremoved. The vertebral bodies are normally aligned. A nonretropulsed T6 burst fracture approximately 70% height lossis unchanged. The intervertebral disc spaces are maintained. IMPRESSION IMPRESSION: Unchanged postoperative appearance of instrumented posterior spine fusionfrom C5-T12 for a nonretropulsed T6 burst fracture. Dictated by Héctor Kemp MD (residential program coordinator). This report was approved by Héctor Kemp on 05/08/2015 1:50 PM . I, Dr. ALICIA GREEN M.D. have personally reviewed and interpreted thisexamination/study. This report was electronically signed by ALICIA GREEN M.D. on05/08/2015 3:32 PM . Reji Virk MD DIAGNOSTIC IMAGING O RDERABLES documented in this encounter Visit Diagnoses Diagnosis Arthrodesis status documented in this encounter Care Teams Fisher Eel Spear Relationship Specialty Start Date End Date Blake Lindsey MD [address] [place] [address] PCP - General 05/20/16 documented as of this encounter
--- OUTSIDE RECORDS SUMMARY | 2024-07-29 17:23 | XMS_ITS | Encounter Summary ---
Author Organization [facility] Health Address [address] [facility] [place] [address] Care Team Providers Care Baker Bench Name Role Phone Blake Lindsey MD Primary Care Provider Encounter Details Date Type Department Care Team (Late st Contact Info) Description 07/10/2015 Hospital Outpatient Visit Historic [facility] DIAGNOSTIC RAD [facility] [address] [facility] [place] [phone] Wai Lowry MD [address] [place] [address] [place] [address] Discharge Disposition: Home or Self Care Social [...] XR KNEE RIGHT 4VW OR MORE Routine 07/10/2015 2:18 PM REVENUE INVESTIGATOR documented in this encounter Results * XR KNEE RIGHT 4VW OR MORE (07/10/2015 2:18 PM REVENUE INVESTIGATOR) Anatomical Region Laterality Modality Lower Extremity Other Impressions 07/10/2015 2:28 PM REVENUE INVESTIGATOR Impression: Normal right and joint spaces. This report was electronically signed by ALICIA GREEN M.D. ??on 07/10/2015 2:28 PM . Narrative 07/10/2015 2:28 PM REVENUE INVESTIGATOR Examination: Right knee minimum 4 views History: Right knee pain Findings: 4 views of the right knee were performed without comparison. There is no joint effusion or acute fracture. The joint spaces are preserved. Procedure Note Alicia Green MD - 10/30/2017 Examination: Right knee minimum 4 views History: Right knee pain Findings: 4 views of the right knee were performed without comparison. There is nojoint effusion or acute fracture. The joint spaces are preserved. IMPRESSION Impression: Normal right and joint spaces. This report was electronically signed by ALICIA GREEN M.D. on07/10/2015 2:28 PM . Wai Lowry MD DIAGNOSTIC IMAGING O RDERABLES documented in this encounter Visit Diagnoses Diagnosis Pain in right knee Pain in joint, lower leg documented in this encounter Care Teams Baker Bench Relationship Specialty Start Date End Date Blake Lindsey MD [address] [place] [address] PCP - General 05/20/16 documented as of this encounter
--- OUTSIDE RECORDS SUMMARY | 2024-07-29 17:23 | XMS_ITS | Encounter Summary ---
Author Organization [facility] Health Address [address] [place] [address] Care Team Providers Care Race Board Attendant Name Role Phone Blake Lindsey MD Primary Care Provider [phone] Encounter Details Date Type Department Care Team (Latest Contact Info) Description 11/29/2014 Hospital Outpatient Visit Historic [facility] [address] [place] [id number] Castillo Max MD [address] [place] [address] [address] [place] [id number] Discharge Disposition: Home or Self Care Social [...] Diagnosis Comments FLOW CYTOMETRY RITUXAN BLOOD Routine 11/29/2014 2:49 PM CDT IGG BLOOD STAT 11/29/2014 2:49 PM CDT INFLUENZA A+B PCR Routine 11/29/2014 2:3 0 PM CDT LAB MISC TEST Routine 11/29/2014 2:30 PM CDT INFLUENZA A+B ANTIGEN RAPID Routine 11/29/2014 2:30 PM CDT VITAMIN D 25-HYDROXY STAT 11/29/2014 12:54 PM CDT CBC W AUTO DIFFERENTIAL STAT 11/29/2014 12:54 PM CDT COMPREHENSIVE METABOLIC PANEL STAT 11/29/2014 12:54 PM CDT LDH BLOOD STAT 11/29/2014 12:54 PM CDT CBC W AUTO DIFFERENTIAL STAT 11/29/2014 12:54 PM CDT documented in this encounter Results * FLOW CYTOMETRY RITUXAN BLOOD PANEL (11/29/2014 2:49 PM CDT) [facility] Rituxan Panel Flow Cytometry Specimen: Blood Reference:[id number] Reason for test: Rituxan Requested Markers: 7 [...] ?0-1 ? IgD ? 3-15 CD16 ?0-23 ?Sundance ? 3-12 CD19 ?8-24 ?Lambda ?3-7 CD20 ?7-17 ?HLA-DR ?9-25 CD23 ?2-16 ?TdT ? 0 Test performed at [facility], [address] [facility] ([place], [place]), [place] ??[address] This test was developed and its performance [...] be reported by the physician to the [facility] authority. Interpretation: Marker ?Absolute count (cells/ul) CD3 ? 1614 CD4 (CD4+CD3+) ?771 CD8 (CD8+CD3+) ?723 CD20 ?265 CD19 ?265 CD45 ?2409 CD56 ?145 This case has been personally reviewed and interpreted by the attending (teaching) pathologist. Final Diagnosis performed by Meera Douglas MD. Electronically signed 12/01/2014 [facility] ([facility] Blood specimen (specimen) 11/29/2014 2:49 PM CDT 11/29/2014 3:13 PM CDT Castillo Max MD LAB - PATHOLOGY/CY TOLOGY ORDERABLES [facility] PATH[facility] ([facility]) * IGG BLOOD (11/29/2014 2:49 PM CDT) Pathologist [facility] [place] IgG 816 540 - 1,822 mg/dL [facility] Blood specimen (specimen) BLOOD SPECIMEN / Unknown 11/29/2014 2:49 PM CDT 11/29/2014 3:22 PM CDT Castillo Max MD LAB - CHEMISTRY OR DERABLES Performing Organization Address [facility] Co de Phone Number [address] [phone] * LAB MISC TEST (11/29/2014 2:30 PM CDT) [facility] Reference Lab Results SEE SCANNED REPORT [facility] REF [facility] NON INTERF Other (qualifier value) 11/29/2014 2:30 PM CDT 11/29/2014 3:53 PM CDT Castillo Max MD LAB SEND OUT Performing Organization Address [facility] de Phone Number [facility] REF [facility] NON INTERF * INFLUENZA A+B PCR (11/29/2014 2:30 PM CDT) [facility] Influenza A Non subtyped Not Detected Not Detected [facility] Influenza B Not Detected Not Detected [facility] Respiratory Syncytial Virus Not Detected Not Detected [facility] RSV B Not Detected Not Detected [facility] Nasopharyngeal NASOPHARYNGEAL SWAB / Unknown 11/29/2014 2:30 PM CDT 11/29/2014 3:39 PM CDT Narrative [facility] - 11/29/2014 6:37 PM CDT Assay performed by Nucleic Acid Amplification. NOTE: ??Negative results for Influenza A, Influenza B or RSV do not preclude influenza virus or RSV infection and should not be used as the sole basis for diagnosis, treatment or patient management decisions. Castillo Max MD LAB - MICROBIOLOGY ORDERABLES Performing Organization Address [facility] Co de Phone Number [address] [phone] * INFLUENZA A+B ANTIGEN RAPID (11/29/2014 2:30 PM CDT) Pathologist [facility] [place] Influenza A Rapid Test Negative Negative [facility] Influenza B Rapid Test Negative Negative [facility] Nasopharyngeal SPECIMEN FROM NASOPHARYNGEAL STRUCTURE / Unknown 11/29/2014 2:30 PM CDT 11/29/2014 3:11 PM CDT Narrative [facility] - 11/29/2014 3:39 PM CDT Specimen Type->Nasopharyngeal If clinical conditions warrant, molecular testing for Influenza offers superior sensitivity (>98%) and is available by ordering INFLUENZA/RSV GILLIAN [[id number]]. ??To add to current sample within [address] an electronic or signed manual requisition order and call the [facility] Microbiology Lab at [phone] with your request. ?? The positive and negative predictive values of rapid influenza testing vary considerably depending upon the prevalence on influenza in the community. *False-positive results are more likely to occur when disease prevalence is low. *False-negative results are more likely to occur when disease prevalence is high. *Current local influenza prevalence can be obtained by calling the Director of Microbiology at [phone]. Castillo Max MD LAB - MICROBIOLOGY ORDERABLES [facility] [address] [place] [address], [facility] [phone] * (ABNORMAL) VITAMIN D 25-HYDROXY (11/29/2014 12:54 PM CDT) Pathologist [facility] [place] Vitamin D, 25 Hydroxy 21.5(L) >30.0 ng/mL [facility] Comment: The recommendations for 25-Hydroxy Vitamin D clinical decision points are as follows: ? Deficient: ? <20.0 ng/mL ? Insufficient: ??20.0 - 30.0 ng/mL ? Sufficient: ?>30.0 ng/mL If the 25-Hydroxy Vitamin D results are inconsitent with clinical evidence, it is recommended that follow-up testing using a method such as LC/MS/MS be performed to confirm the result. ? Blood specimen (specimen) BLOOD SPECIMEN / Unknown 11/29/2014 12:54 PM CDT 11/29/2014 12:59 PM CDT Jessica Saunders CONCRETE JOURNEYMAN-BOILER CONTROL TECHNICIAN LAB - CHEMIS TRY ORDERABLES Performing Organization Address [facility] de Phone Number [address] [phone] * LDH BLOOD (11/29/2014 12:54 PM CDT) [facility] LDH Total 208 125 - 243 Units/L [facility] Blood specimen (specimen) BLOOD SPECIMEN / Unknown 11/29/2014 12:54 PM CDT 11/29/2014 12:59 PM CDT Jessica Saunders CONCRETE JOURNEYMAN-BOILER CONTROL TECHNICIAN LAB - CHEMIS TRY ORDERABLES Performing Organization Address [facility] de Phone Number [address] [phone] * (ABNORMAL) COMPREHENSIVE METABOLIC PANEL (11/29/2014 12:54 PM CDT) Pathologist [facility] [place] BUN 13 7 - 26 mg/dL [facility] Creatinine 0.8 0.6 - 1.2 mg/dL [facility] Sodium 144 136 - 145 mmol/L [facility] Potassium 3.9 3.5 - 4.5 mmol/L [facility] Chloride 103 98 - 107 mmol/L [facility] CO2 26 22 - 29 mmol/L [facility] Glucose 106 70 - 115 mg/dL [facility] Calcium 9.8 8.4 - 10.2 mg/dL [facility] Protein Total 7.3 6.0 - 8.3 g/dL [facility] Albumin 3.9 3.4 - 5.0 g/dL [facility] Bilirubin Total 0.4 0.2 - 1.2 mg/dL [facility] Alkaline Phosphatase 98 40 - 150 Units/L [facility] ALT 31 0 - 55 Units/L [facility] AST 18 5 - 34 Units/L [facility] Anion Gap 19(H) 8 - 18 [facility] BUN/Creatinine Ratio 16 7 - 23 [facility] Osmolality Calculated 283 270 - 300 mOsm/kg [facility] Albumin/Globulin Ratio 1.1 1.1 - 2.3 [facility] eGFR >60 >60 mL/min/1.7 3 m2 [facility] Blood specimen (specimen) BLOOD SPECIMEN / Unknown 11/29/2014 12:54 PM CDT 11/29/2014 12:59 PM CDT Jessica Lauren Nicky CONCRETE JOURNEYMAN-BOILER CONTROL TECHNICIAN LAB - CHEMIS TRY ORDERABLES Performing Organization Address City/State/[facility] Co de Phone Number [address] [phone] * (ABNORMAL) CBC W AUTO DIFFERENTIAL (11/29/2014 12:54 PM CDT) WBC 7.3 3.5 - 10.5 10? 3 /uL [facility] RBC 4.24 3.90 - 5.00 10? 6 /uL [facility] Hemoglobin 14.2 12.0 - 15.5 g/dL [facility] Hematocrit 41.7 35.0 - 45.0 % [facility] MCV 98.3(H) 81.0 - 97.0 fL [facility] MCH 33.5 28.0 - 34.0 pg [facility] MCHC 34.1 32.0 - 36.0 g/dL [facility] Platelet Count 179 150 - 400 10? 3 /uL [facility] Comment:> 30 days RDW-SD 48.3 36.0 - 50.0 fL [facility] RDW-CV 13.5 11.2 - 14.8 % [facility] MPV 8.0(L) 9.3 - 12.8 fL [facility] Neutrophils % 51.8 35.0 - 70.0 % [facility] Lymphocytes % 35.7 19.7 - 55.1 % [facility] Monocytes % 6.6 3.0 - 15.0 % [facility] Eosinophils % 4.9 0.0 - 6.0 % [facility] Basophil % 0.3 0.0 - 1.5 % [facility] Neutrophils Absolute 3.8 1.6 - 7.0 10? 3 /uL [facility] Lymphocyte Absolute 2.6 0.8 - 2.9 10? 3 /uL [facility] Monocytes Absolute 0.48 0.14 - 0.66 10? 3 /uL [facility] Eosinophils Absolute 0.36(H) 0.00 - 0.22 10? 3 /uL [facility] Basophils Absolute 0.02 0.00 - 0.06 10? 3 /uL [facility] Immature Granulocytes % 0.7 0.0 - 1.0 % [facility] Blood specimen (specimen) BLOOD SPECIMEN / Unknown 11/29/2014 12:54 PM CDT 11/29/2014 12:54 PM CDT Jessica Saunders CONCRETE JOURNEYMAN-BOILER CONTROL TECHNICIAN LAB - HEMATO LOGY ORDERABLES Performing Organization Address [facility]/State/ZIP Co de Phone Number [facility] [address] [phone] * CBC W AUTO DIFFERENTIAL (11/29/2014 12:54 PM CDT) Blood specimen (specimen) BLOOD SPECIMEN / Unknown 11/29/2014 12:54 PM CDT Narrative [facility] - 11/29/2014 12:59 PM CDT The following orders were created for panel order CBC with Differential. Procedure ? Abnormality ? Status ? --------- ? ------ ? CBC WITH DIFFERENTIAL[[id number]] ? Abnormal ?Final result ? Please view results for these tests on the individual orders. Jessica Saunders CONCRETE JOURNEYMAN-BOILER CONTROL TECHNICIAN LAB - HEMATO LOGY ORDERABLES Performing Organization Address [facility] de Phone Number [place] [phone] [address] documented in this encounter Visit Diagnoses Diagnosis Hodgkin's disease (HCC) Vitamin D deficiency Fever due to unspecified condition documented in this encounter Care Teams Race Board Attendant Relationship Specialty Start Date End Date Blake Lindsey MD [address] [place] [address] PCP - General 05/20/16 documented as of this encounter
--- OUTSIDE RECORDS SUMMARY | 2024-07-29 17:23 | XMS_ITS | Encounter Summary ---
Author Organization [facility] Health Address [address] [place] [address] Care Team Providers Care Plaster Molder Name Role Phone Blake Lindsey MD Primary Care Provider [phone] Encounter Details Date Type Department Care Team (Latest Contact Info) Description 11/05/2015 Hospital Outpatient Visit Historic [facility] MRI OP [address] [place] [address] Discharge Disposition: Home or Self Care Social [...] Name Priority Date/Time Associated Diagnosis Comments MRI SHOULDER LEFT WO CONTRAST Routine 11/05/2015 11:31 AM CDT documented in this encounter Results * MRI SHOULDER LEFT WO CONTRAST (11/05/2015 [...] 11/05/2015 3:44 PM . I, Dr. EMIL MALONE MD have personally reviewed and interpreted this examination/study. This report was electronically signed by EMIL MALONE MD ??on 11/05/2015 4:08 PM . Narrative [...] subcutaneous tissues are normal. Procedure Note Emil Malone MD - 10/30/2017 Examination: Magnetic resonance imaging [...] Amrita Schuler on 11/05/2015 3:44 PM . IDr. EMIL MD have personally reviewed and interpreted thisexamination/study. This report was electronically signed by EMIL MALONE MD on 11/05/20154:08 PM . Reji Virk MD MR ORDERABLES documented in this encounter Visit Diagnoses Diagnosis Arthrodesis status Pain in left shoulder Pain in joint, shoulder region documented in this encounter Care Teams Plaster Molder Relationship Specialty Start Date End Date Blake Lindsey MD [address] [place] [address] PCP - General 05/20/16 documented as of this encounter
--- OUTSIDE RECORDS SUMMARY | 2024-07-29 17:23 | XMS_ITS | Encounter Summary ---
Author Organization [facility] Health Address [address] [place] [address] Care Team Providers Care Associate Merchandise Planner Name Role Phone Blake Lindsey MD Primary Care Provider [phone] Encounter Details Date Type Department Care Team (Latest Contact Info) Description 10/10/2013 Hospital Outpatient Visit Historic [facility] [address] [place] [phone] Castillo Max MD [address] [place] [address] [address] [place] [phone] Discharge Disposition: Home or Self Care Social [...] on filedocumented in this encounter Care Teams Associate Merchandise Planner Relationship Specialty Start Date End Date Blake Lindsey MD [address] [place] [address] PCP - General 05/20/16 documented as of this encounter
--- OUTSIDE RECORDS SUMMARY | 2024-07-29 17:23 | XMS_ITS | Encounter Summary ---
Author Organization [facility] Health Address [address] [place] [address] Care Team Providers Care Church Official Name Role Phone Blake Lindsey MD Primary Care Provider Encounter Details Date Type Department Care Team (Latest Contact Info) Description 04/19/2017 Emergency Department Historic [facility] EMERGENCY DEPARTMENT [address] [place] [id number] Discharge Disposition: Home or Self Care [...] Sign Reading Time Taken Comments Blood Pressure 139/94 04/19/2017 10:30 AM CDT Pulse 73 04/19/2017 10:30 AM CDT Temperature 36.8 ??C (98.3 ??F) 04/19/2017 10:30 AM C DT Respiratory Rate 16 04/19/2017 10:30 AM CDT Oxygen Saturation 100% 04/19/2017 10:30 AM CDT Inhaled Oxygen Concentration - - Weight 99.8 kg (220 lb) 04/19/2017 10:30 AM CDT Height 160 cm (5' 3 ) 04/19/2017 10:30 AM CDT Body Mass Index 38.97 04/19/2017 10:30 AM CDT documented in this encounter ED Notes * Yesenia Bocanegra PA-C - 04/19/2017 11:59 AM CDT ED Provider Notes Signed by ELOINA Gallagher on 04/19/2017 12:04 PM Author: ELOINA Gallagher Service: Emergency Author Type: Physician Forest And Conservation Worker Date of Service: 04/19/2017 11:59 AM Filed: 04/19/2017 12:04 PM Note Type: ED Provider Notes Status: Signed Home Health Attendant: ELOINA Gallagher (Physician Forest And Conservation Worker) Cosigner: Kain Wellington MD at 04/19/2017 5:41 PM History Chief Complaint Patient presents with ??? Nausea pt here for N/V. Pt was just discharged from hospital last night for the same. C/O 3 episodes of N/V. Denies blood, The history is provided by the patient (pt reports N/V was admitted to [facility] discharged yesterday ptstates vomiting today no fever no chills ). Past Medical History: Diagnosis Date ??? Activity [...] ??? Echocardiogram findings abnormal, without diagnosis at [facility] ??? GERD (gastroesophageal reflux disease) 07/13/2013 ??? Mental disorder Claustrophobia ??? Osteoporosis ??? Patellofemoral arthritis of right knee 09/09/2016 ??? Radiation chemo only, last time ??? Sleep apnea central sleep apnea, cpap Past Surgical History: Procedure Laterality Date ??? BIOPSY ??? HX BACK SURGERY ??? HX SPINAL FUSION ??? NV FEMUR/KNEE SURG UNLISTED both knees ??? LUTHER TOOTH EXTRACTION Family History Problem Relation Age of Onset ??? Cancer Father ??? Diabetes Mother ??? Heart Disease Mother Father ??? Hypertension Mother Social History Substance Use Topics ??? Smoking status: Former Smoker Packs/day: 1.00 Years: 18.00 Types: Cigarettes Quit date: 11/30/1997 ??? Smokeless tobacco: Never Used ??? Alcohol use 0.5 oz/week 1 Standard drinks or equivalent per week Comment: once a month Review of Systems Constitutional: Negative. HENT: Negative. Respiratory: Negative. Cardiovascular: Negative. Gastrointestinal: Positive for nausea and vomiting. Physical Exam BP (!) 139/94 (BP Location: Right arm, Patient Position: Sitting) Pulse 73 Temp 98.3 ??F (36.8 ??C) (Oral) Resp 16 Ht 5' 3 (1.6 m) Wt 220 lb (99.8 kg) SpO2 100% BMI 38.97 kg/m2 Physical Exam Constitutional: She is oriented to person, place, and time. She appears well- developed and well-nourished. No distress. HENT: Head: Normocephalic. Cardiovascular: Normal rate and regular rhythm. Pulmonary/Chest: Effort normal and breath sounds normal. No respiratory distress. She has no wheezes. She has no rales. She exhibits no tenderness. Abdominal: Soft. Bowel sounds are normal. She exhibits no distension. There is no tenderness. Thereis no rebound and no guarding. Neurological: She is alert and oriented to person, place, and time. Psychiatric: She has a normal mood and affect. Her behavior is normal. Judgment and thought contentnormal. Nursing note and vitals reviewed. ED Course ED Course Procedures MDM Number of Diagnoses or Management Options Nausea: Diagnosis management comments: N/V H/o gallstones Discussed risks of habitual cannabis use Plan hydration phenergan Clinic follow up Amount and/or Complexity of Data Reviewed Clinical lab tests: ordered and reviewed Tests in the radiology section of CPT??: ordered and reviewed Patient Progress Patient progress: improved ED Final Diagnosis and Discharge information 1. Nausea Scripts ED Discharge Orders Start Ordered 04/19/17 0000 promethazine (PHENERGAN) 25 MG tablet EVERY 6 HOURS PRN 04/19/17 1158 Follow-up Follow-up Information Follow up with Blake Lindsey. Call in 1 day. Specialty: Family Medicine Why: to schedule follow up see information sheet Contact information: [address] [facility] [address] Disposition Condition stable Yesenia ELOINA Ascencio 04/19/17 1204 documented in this encounter Plan of Treatment Not on file documented as of this encounter Procedures Procedure Name Priority Date/Time Associated Diagnosis Comments DRUG ABUSE PANEL 10-20+ETHANOL URINE NO CONFIRM STAT 04/19/2017 11:33 AM CDT URINALYSIS REFLEX TO MICROSCOPIC NO CULTURE STAT 04/19/2017 11:31 AM CDT CBC W AUTO DIFFERENTIAL STAT 04/19/2017 11:03 AM CDT COMPREHENSIVE METABOLIC PANEL Routine 04/19/2017 11:03 AM CDT LIPASE BLOOD STAT 04/19/2017 11:03 AM CDT CBC W AUTO DIFFERENTIAL STAT 04/19/2017 11:03 AM CDT documented in this encounter Results * (ABNORMAL) DRUG ABUSE PANEL 10-20+ETHANOL URINE NO CONFIRM (04/19/2017 11:33 AM CDT) [facility] Amphetamines Screen Urine Negative Negative : < 1000 ng/mL [facility] Barbiturates Screen Urine Negative Negative : < 200 ng/mL [facility] Benzodiazepine Screen Urine Positive(A) Negative : < 200 ng/mL [facility] Comment: Positive urine benzodiazepine screening results should be confirmed by another generally accepted non-immunological method such as gas chromatography or mass spectrometry. ? Opiates Urine Positive(A) Negative : < 300 ng/mL [facility] Comment: Positive urine opiate screening results should be confirmed by another generally accepted non-immunological method such as gas chromatography or mass spectrometry. ? Cocaine Metabolites Urine Negative Negative : < 300 ng/mL [facility] Phencyclidine Screen Urine Negative Negative : < 25 ng/ml [facility] Cannabinoids Screen Urine Positive(A) Negative : <50 ng/mL [facility] Comment: Positive urine cannabinoids (THC) screening results should be confirmed by another generally accepted non-immunological method such as gas chromatography or mass spectrometry. ? Methadone Screen Urine Negative Negative : < 300 ng/mL [facility] Urine specimen (specimen) 04/19/2017 11:33 AM CDT 04/19/2017 11:33 AM CDT Narrative [facility] - 04/19/2017 11:52 AM CDT The Urine Toxicology Screening Panel does not screen for Propoxyphene, Meprobamate, Carisoprodol, Trazodone, [id number]-[id number] medications and/or volatiles (Acetone, Isopropanol, Methanol or Ethylene Glycol). Ethanol, Salicylate, Acetaminophen, Tricyclic Antidepressants and several therapeutic drugs may be individually assayed in serum or plasma specimen. Toxicology testing by the [facility] is an aid to medical diagnosis and treatment of patients. No documented chain of custody was maintained. Results are intended to be used for clinical purposes only. ? Kain Wellington MD LAB - URINE CHEMISTR Y ORDERABLES Performing Organization Address [facility] Co de Phone Number [address] [phone] * (ABNORMAL) URINALYSIS REFLEX TO MICROSCOPIC NO CULTURE (04/19/2017 11:31 AM CDT) Color UA Yellow Straw, Yellow, Colorless, Light Yellow [facility] Clarity UA Clear Clear [facility] Specific [place] UA 1.010 1.001 - 1.030 [facility] pH UA 7.5 5.0 - 8.0 [facility] Protein UA Negative <=20 mg/dL [facility] Glucose UA Negative Negative mg/dL [facility] Ketone UA 40(A) Negative mg/dL [facility] Bilirubin UA Negative Negative mg/dL [facility] Blood UA Trace(A) Negative [facility] Nitrite UA Negative Negative [facility] Leukocyte Esterase Negative Negative [facility] Urobilinogen UA <2.0 <2.0 mg/dL [facility] RBC UA 5 0 - 8 /HPF [facility] WBC UA 1 0 - 2 /HPF [facility] Squamous Epithelial Cells UA 1 0 - 1 /HPF [facility] Mucus UA Few(A) None /LPF [facility] Hyaline Casts UA 2 0 - 2 /LPF [facility] Urine specimen (specimen) 04/19/2017 11:31 AM CDT 04/19/2017 11:33 AM CDT Kain Wellington MD LAB - URINALYSIS ORD ERABLES [address] [phone] * LIPASE BLOOD (04/19/2017 11:03 AM CDT) Lipase 10 8 - 78 Units/L [facility] Blood specimen (specimen) BLOOD SPECIMEN / Unknown 04/19/2017 11:03 AM CDT 04/19/2017 11:10 AM CDT Kain Wellington MD LAB - CHEMISTRY CHRISTOPHER DE LA GARZA [address] [phone] * (ABNORMAL) COMPREHENSIVE METABOLIC PANEL (04/19/2017 11:03 AM CDT) BUN 5(L) 7 - 26 mg/dL [facility] Creatinine 0.6 0.6 - 1.2 mg/dL [facility] Sodium 140 136 - 145 mmol/L [facility] Potassium 3.7 3.5 - 4.5 mmol/L [facility] Chloride 105 98 - 107 mmol/L [facility] CO2 24 22 - 29 mmol/L [facility] Glucose 111 70 - 115 mg/dL [facility] Calcium 9.7 8.4 - 10.2 mg/dL [facility] Protein Total 7.9 6.0 - 8.3 g/dL [facility] Albumin 3.8 3.4 - 5.0 g/dL [facility] Bilirubin Total 0.7 0.2 - 1.2 mg/dL [facility] Alkaline Phosphatase 108 40 - 150 Units/L [facility] ALT 142(H) 0 - 55 Units/L [facility] AST 98(H) 5 - 34 Units/L [facility] Anion Gap 15 8 - 18 [facility] BUN/Creatinine Ratio 8 7 - 23 [facility] Osmolality Calculated 288 270 - 300 mOsm/kg [facility] Albumin/Globulin Ratio 0.9(L) 1.1 - 2.3 [facility] eGFR >60 >60 mL/min/1.7 3 m2 [facility] Blood specimen (specimen) BLOOD SPECIMEN / Unknown 04/19/2017 11:03 AM CDT 04/19/2017 11:10 AM CDT Kain Wellington MD LAB - CHEMISTRY CHRISTOPHER DE LA GARZA [address] [phone] * (ABNORMAL) CBC W AUTO DIFFERENTIAL (04/19/2017 11:03 AM CDT) WBC 8.7 3.5 - 10.5 10? 3 /uL [facility] RBC 4.97 3.90 - 5.00 10? 6 /uL [facility] Hemoglobin 16.4(H) 12.0 - 15.5 g/dL [facility] Comment:Checked by repeat an alysis. Hematocrit 45.7(H) 35.0 - 45.0 % [facility] MCV 92.0 81.0 - 97.0 fL [facility] MCH 33.0 28.0 - 34.0 pg [facility] MCHC 35.9 32.0 - 36.0 g/dL [facility] Platelet Count 186 150 - 400 10? 3 /uL [facility] RDW-SD 44.3 36.0 - 50.0 fL [facility] RDW-CV 13.2 11.2 - 14.8 % [facility] MPV 9.0(L) 9.3 - 12.8 fL [facility] nRBC Absolute 0.00 0 10? 3 /uL [facility] nRBC Auto 0.0 0 /100 WBC [facility] Neutrophils % 77.3(H) 35.0 - 70.0 % [facility] Lymphocytes % 17.5(L) 19.7 - 55.1 % [facility] Monocytes % 4.6 3.0 - 15.0 % [facility] Eosinophils % 0.5 0.0 - 6.0 % [facility] Basophil % 0.1 0.0 - 1.5 % [facility] Neutrophils Absolute 6.7 1.6 - 7.0 10? 3 /uL [facility] Lymphocyte Absolute 1.5 0.8 - 2.9 10? 3 /uL [facility] Monocytes Absolute 0.40 0.14 - 0.66 10? 3 /uL [facility] Eosinophils Absolute 0.04 0.00 - 0.22 10? 3 /uL [facility] Basophils Absolute 0.01 0.00 - 0.06 10? 3 /uL [facility] Immature Granulocytes % 0.5 0.0 - 1.0 % [facility] Blood specimen (specimen) BLOOD SPECIMEN / Unknown 04/19/2017 11:03 AM CDT 04/19/2017 11:10 AM CDT Kain Wellington MD LAB - HEMATOLOGY MELISSA YADAV Performing Organization Address [facility] de Phone Number [facility] [address] [phone] * CBC W AUTO DIFFERENTIAL (04/19/2017 11:03 AM CDT) Blood specimen (specimen) BLOOD SPECIMEN / Unknown 04/19/2017 11:03 AM CDT Narrative [facility] - 04/19/2017 11:29 AM CDT The following orders were created for panel order CBC w Differential. Procedure ? Abnormality ? Status ? --------- ? ------ ? CBC WITH DIFFERENTIAL[[id number]] ? Abnormal ?Final result ? Please view results for these tests on the individual orders. Kain Wellington MD LAB - HEMATOLOGY MELISSA YADAV Performing Organization Address [facility] Co de Phone Number [facility] [address] documented in this encounter Visit Diagnoses Diagnosis Nausea Nausea alone documented in this encounter Care Teams Church Official Relationship Specialty Start Date End Date Blake Lindsey MD [address] [place] [address] PCP - General 05/20/16 documented as of this encounter
--- OUTSIDE RECORDS SUMMARY | 2024-07-29 17:23 | XMS_ITS | Encounter Summary ---
Author Organization [facility] Health Address [address] [place] [address] Care Team Providers Care Contour Path Tape Mill Operator Name Role Phone Blake Lindsey MD Primary Care Provider [phone] Encounter Details Date Type Department Care Team (Latest Contact Info) Description 05/24/2014 Hospital Outpatient Visit Historic [facility] [address] [place] [phone] Castillo Max MD [address] [place] [address] [address] [place] [phone] Discharge Disposition: Home or Self Care Social [...] on filedocumented in this encounter Care Teams Contour Path Tape Mill Operator Relationship Specialty Start Date End Date Blake Lindsey MD [address] [place] [address] PCP - General 05/20/16 documented as of this encounter
--- OUTSIDE RECORDS SUMMARY | 2024-07-29 17:24 | XMS_ITS | Encounter Summary ---
Author Organization [facility] Health Address [address] [facility] [address] Care Team Providers Care Dental Financial Coordinator Name Role Phone Blake Lindsey MD Primary Care Provider [phone] Encounter Details Date Type Department Care Team (Latest Contact Info) Description 07/19/2013 [facility] [address] [facility] [place] [place] [address] Reji Virk MD [address] [place], [place] [phone] Discharge Disposition: Home or Self Care Social [...] filedocumented in this encounter Care Teams Dental Financial Coordinator Relationship Specialty Start Date End Date Blake Lindsey MD [address] [place] [address] PCP - General 05/20/16 documented as of this encounter
--- OUTSIDE RECORDS SUMMARY | 2024-07-29 17:24 | XMS_ITS | Encounter Summary ---
Author Organization [facility] Health Address [address] [place] [address] Care Team Providers Care Paint Booth Operator Name Role Phone Blake Lindsey MD Primary Care Provider Encounter Details Date Type Department Care Team (Late st Contact Info) Description 03/11/2013 Hospital Outpatient Visit Historic [facility] [address] [place] [address] Castillo Max MD [address] [place] [address] [address] [place] [address] Social History Tobacco Use Types Packs/Day Years [...] filedocumented in this encounter Care Teams Paint Booth Operator Relationship Specialty Start Date End Date Blake Lindsey MD [address] [place] [address] PCP - General 05/20/16 documented as of this encounter
--- OUTSIDE RECORDS SUMMARY | 2024-07-29 17:24 | XMS_ITS | Encounter Summary ---
Author Organization [facility] Health Address [address] [facility] [place] [address] Care Team Providers Care Catering Director Name Role Phone Blake Lindsey MD Primary Care Provider Encounter Details Date Type Department Care Team (Latest Contact Info) Description 07/04/2013 Hospital Outpatient Visit Historic [facility] [address] [place] [address] Castillo Max MD [address] [place] [address] [address] [place] [address] Discharge Disposition: Home or Self Care Social [...] on filedocumented in this encounter Care Teams Catering Director Relationship Specialty Start Date End Date Blake Lindsey MD [address] [place] [address] PCP - General 05/20/16 documented as of this encounter
--- OUTSIDE RECORDS SUMMARY | 2024-07-29 17:24 | XMS_ITS | Encounter Summary ---
Author Organization [facility] Health Address [address] [facility] [place] [address] Care Team Providers Care Rn Wound Name Role Phone Blake Lindsey MD Primary Care Provider Encounter Details Date Type Department Care Team (Late st Contact Info) Description 11/14/2012 Anesthesia Historic Visit [facility] OP [address] [place] [phone] Social History Tobacco Use Types Packs/Day Years [...] on filedocumented in this encounter Care Teams Rn Wound Relationship Specialty Start Date End Date Blake Lindsey MD [address] [place] [address] PCP - General 05/20/16 documented as of this encounter
--- OUTSIDE RECORDS SUMMARY | 2024-07-29 17:24 | XMS_ITS | Encounter Summary ---
Author Organization [facility] Health Address [address] [facility] [place] [address] Care Team Providers Care Metal Fabricating Supervisor Name Role Phone Blake Lindsey MD Primary Care Provider [phone] Encounter Details Date Type Department Care Team (Late st Contact Info) Description 03/07/2013 Hospital Outpatient Visit Historic [facility] [address] [place] [address] Castillo Max MD [address] [place] [address] [address] [place] [address] Social History Tobacco Use Types Packs/Day Years [...] Procedure Name Priority Date/Time Associated Diagnosis Comments COMPREHENSIVE METABOLIC PANEL STAT 03/08/2013 10:01 AM CDT documented in this encounter Results * (ABNORMAL) COMPREHENSIVE METABOLIC PANEL (03/08/2013 10:01 AM CDT) BUN 11 7 - 26 mg/dL [facility] Creatinine 0.6 0.6 - 1.2 mg/dL [facility] eGFR by MDRD > 60 ML/MIN [facility] Comment: Chronic kidney disease: ??<60 ml/min Kidney failure: ?<15 ml/min Based on BSA of 1.73m2. Sodium 143 136 - 145 mmol/L [facility] Potassium 3.4(L) 3.5 - 4.5 mmol/L [facility] Chloride 103 98 - 107 mmol/L [facility] CO2 22 22 - 29 mmol/L [facility] Glucose 122(H) 70 - 115 mg/dL [facility] Calcium 9.9 8.4 - 10.2 mg/dL [facility] Protein Total 5.6(L) 6.0 - 8.3 g/dL [facility] Albumin 3.4 3.4 - 5.0 g/dL [facility] Bilirubin Total 0.2 0.2 - 1.2 mg/dL [facility] Alkaline Phosphatase 57 40 - 150 Units/L [facility] ALT 12 0 - 55 Units/L [facility] AST 7 5 - 34 Units/L [facility] Anion Gap 21(H) 8 - 18 [facility] BUN/Creatinine Ratio 18 7 - 23 [facility] Osmolality Calculation 280 270 - 300 mOsm/kg [facility] Albumin/Globulin Ratio 1.5 1.1 - 2.3 [facility] 03/08/2013 10:0 1 AM CDT 03/08/2013 10:06 AM CDT Castillo Max MD LAB - CHEMISTRY OR DERABLES [facility] [address] [place] [address] documented in this encounter Visit Diagnoses Not on filedocumented in this encounter Care Teams Metal Fabricating Supervisor Relationship Specialty Start Date End Date Blake Lindsey MD [address] [place] [address] PCP - General 05/20/16 documented as of this encounter
--- OUTSIDE RECORDS SUMMARY | 2024-07-29 17:24 | XMS_ITS | Encounter Summary ---
Author Organization [facility] Health Address [address] [place] [address] Care Team Providers Care Roller Pneumatic Name Role Phone Blake Lindsey MD Primary Care Provider [phone] Encounter Details Date Type Department Care Team (Latest Contact Info) Description 04/22/2013 Hospital Outpatient Visit Historic [facility] [address] [place] [address] Castillo Max MD [address] [place] [address] [address] [place] [address] Discharge Disposition: Home or Self [...] Procedure Name Priority Date/Time Associated Diagnosis Comments [facility] BLOOD STAT 04/25/2013 3:20 PM CDT documented in this encounter Results * (ABNORMAL) [facility]DH BLOOD (04/25/2013 3:20 PM CDT) LDH Total 279(H) 125 - 243 Units/L [facility] 04/25/2013 3:20 PM CDT 04/25/2013 3:28 PM CDT Castillo Max MD LAB - CHEMISTRY OR DERABLES Performing Organization Address City/State/[facility] Co de Phone Number [facility] [address] [place] [address] documented in this encounter Visit Diagnoses Not on filedocumented in this encounter Care Teams Roller Pneumatic Relationship Specialty Start Date End Date Blake Lindsey MD [address] [place] [address] PCP - General 05/20/16 documented as of this encounter
--- OUTSIDE RECORDS SUMMARY | 2024-07-29 17:24 | XMS_ITS | Encounter Summary ---
Author Organization [facility] Health Address [address] [place] [address] Care Team Providers Care Manager Green Name Role Phone Blake Lindsey MD Primary Care Provider [phone] Encounter Details Date Type Department Care Team (Late st Contact Info) Description 01/23/2013 Hospital Outpatient Visit Historic [facility] [address] [place] [address] Castillo Max MD [address] [place] [address] [address] [place] [address] Social History Tobacco Use Types [...] Diagnosis Comments CBC W AUTO DIFFERENTIAL STAT 01/23/2013 10:45 AM CDT COMPREHENSIVE METABOLIC PANEL STAT 01/23/2013 10:45 AM CDT LDH BLOOD STAT 01/23/2013 10:45 AM CDT documented in this encounter Results * (ABNORMAL) CBC W AUTO DIFFERENTIAL (01/23/2013 10:45 AM CDT) WBC 19.9(H) 3.5 - 10.5 10^3/uL [facility] WBC (corrected for NRBC) COMMENT [facility] Comment:THE WBC COUNT IS COR RECTED BY THE INSTRUMENT FOR NRBC'S. RBC 3.59(L) 3.90 - 5.00 10^6/uL [facility] Hemoglobin 10.2(L) 12.0 - 15.5 g/dL [facility] Hematocrit 30.2(L) 35.0 - 45.0 % [facility] MCV 84.1 81.0 - 97.0 FL [facility] MCH 28.4 28.0 - 34.0 PG [facility] MCHC 33.8 32.0 - 36.0 G/DL [facility] Platelet 42(LL) 150 - 400 10^3/uL [facility] Comment: RESULT CONFIRMED BY REPEAT ANALYSIS, CHECKED ?? NOT CALLED [facility] Comment Platelet COMMENT [facility] Comment: WHEN REPORTED, PLT. COUNT HAS BEEN CONFIRMED BY SLIDE REVIEW. RDW 15.0(H) 11.2 - 14.8 % [facility] RDW-SD 45.1 36 - 50 FL [facility] MPV 10.6 9.3 - 12.8 FL [facility] nRBC Absolute 0.29(H) 0 10^3/uL [facility] nRBC Auto 1.5(H) 0 % [facility] Differential Type MANUAL [facility] Neutrophils Absolute Manual 13.53(H) 1.7 - 7.0 10^3/uL [facility] Comment:(BANDS AND SEGS) X W BC = NEUT # (ANC) Lymphocytes Absolute Manual 1.00 0.9 - 2.9 10^3/uL [facility] Monocyte Absolute Manual 0.80 0.3 - 0.9 10^3/uL [facility] Band % Manual 23(H) 0 - 10 % [facility] Neutrophils % manual 45 30 - 60 % [facility] Lymphocytes % manual 5(L) 20 - 45 % [facility] Monocytes % Manual 4 2 - 10 % [facility] Metamyelocytes % Manual 20(HH) 0 % [facility] Myelocytes % Manual 2(HH) 0 % [facility] Blast % manual 1(H) 0 % [facility] nRBC Manual 1(H) 0 % [facility] Platelet Estimate DECREASED [facility] Anisocytosis 1+(A) NONE SEEN [facility] 01/23/2013 10:4 5 AM CDT 01/23/2013 10:58 AM CDT Castillo Max MD LAB - HEMATOLOGY O RDERABLES Performing Organization Address City/[facility]/ZIP Co de Phone Number [address] [phone] * (ABNORMAL) LDH BLOOD (01/23/2013 10:45 AM CDT) LDH Total 365(H) 125 - 243 Units/L [facility] 01/23/2013 10:4 5 AM CDT 01/23/2013 10:58 AM CDT Castillo Max MD LAB - CHEMISTRY OR DERABLES Performing Organization Address City/[facility] Co de Phone Number [address] [phone] * (ABNORMAL) COMPREHENSIVE METABOLIC PANEL (01/23/2013 10:45 AM CDT) BUN 7 7 - 26 mg/dL [facility] Creatinine 0.5(L) 0.6 - 1.2 mg/dL [facility] eGFR by MDRD > 60 ML/MIN [facility] Comment: Chronic kidney disease: ??<60 ml/min Kidney failure: ?<15 ml/min Based on BSA of 1.73m2. Sodium 144 136 - 145 mmol/L [facility] Potassium 3.2(L) 3.5 - 4.5 mmol/L [facility] Chloride 102 98 - 107 mmol/L [facility] CO2 21(L) 22 - 29 mmol/L [facility] Glucose 137(H) 70 - 115 mg/dL [facility] Calcium 10.1 8.4 - 10.2 mg/dL [facility] Protein Total 6.2 6.0 - 8.3 g/dL [facility] Albumin 3.5 3.4 - 5.0 g/dL [facility] Bilirubin Total 0.1(L) 0.2 - 1.2 mg/dL [facility] Alkaline Phosphatase 74 40 - 150 Units/L [facility] ALT 8 0 - 55 Units/L [facility] AST 8 5 - 34 Units/L [facility] Anion Gap 24(H) 8 - 18 [facility] BUN/Creatinine Ratio 14 7 - 23 [facility] Osmolality Calculation 282 270 - 300 mOsm/kg [facility] Albumin/Globulin Ratio 1.3 1.1 - 2.3 [facility] 01/23/2013 10:4 5 AM CDT 01/23/2013 10:58 AM CDT Castillo Max MD LAB - CHEMISTRY OR DERABLES Performing Organization Address City/State/[facility] Co de Phone Number [facility] [address] [place] [address] documented in this encounter Visit Diagnoses Not on filedocumented in this encounter Care Teams Manager Green Relationship Specialty Start Date End Date Blake Lindsey MD [address] [place] [address] PCP - General 05/20/16 documented as of this encounter
--- OUTSIDE RECORDS SUMMARY | 2024-07-29 17:24 | XMS_ITS | Encounter Summary ---
Author Organization [facility] Health Address [address] [place] [address] Care Team Providers Care Ornamental Rail Installer Name Role Phone Blake Lindsey MD Primary Care Provider Encounter Details Date Type Department Care Team (Latest Contact Info) Description 06/26/2013 Hospital Outpatient Visit Historic [facility] [address] [place] [id number] Discharge Disposition: Home or Self Care Social [...] Diagnosis Comments PET CT WHOLE BODY Routine 06/26/2013 12: 36 PM [employer]OT [employer]LE DRILLER GLUCOSE - POINT OF CARE (AMB) [facility] Routine 06/26/2013 GLUCOSE - POINT OF CARE (AMB) [facility] Routine 06/26/2013 documented in this encounter Results * PET CT WHOLE BODY (06/26/2013 12:36 PM SHOT [employer]LE [employer]RILLER) Anatomical Region Laterality Modality Other Impressions 06/26/2013 5:54 PM [employer]LE [employer]RILLER IMPRESSION: 1. Interval decreased metabolic activity is seen in the manubrium and proximal sternum as well as L5, as above. ??Given the interval improved metabolic activity in the absence of therapy, this is most likely benign. 2. Stable non-FDG avid lytic and sclerotic osseous lesions which are consistent with treated disease. 3. There are no new FDG avid lesions to indicate new sites metastasis. This report was approved ??by JAKY WOOD M.D. ?? on 06/26/2013 5:37 PM . I, Dr. RENEE SHIN M.D. have personally reviewed and interpreted this examination/study. This report was electronically signed by RENEE SHIN M.D. ??on 06/26/2013 5:54 PM . Narrative 06/26/2013 5:54 PM SHOT HOLE DRILLER Procedure: PET/CT Study. Referring Physician: Dr. Castillo Woods. HISTORY: 42-year-old woman with a history of Hodgkin's lymphoma diagnosed in September 2012, status post chemotherapy. Earlier sites of disease have included the left supraclavicular, mediastinum(including right paratracheal and large subcarinal mass), and right inguinal node. ??Prior osseous metastases have included lesions involving the sternum, ribs, C7, thoracic/lumbar/sacral vertebrae, bilateral iliac wings, and left proximal femur/femoral neck. Recent PET/CT study from 04/24/2013 demonstrated interval development of subtle increased FDG uptake in the sternum which was thought to represent benign reactive changes however malignancy cannot be completely ruled out. Close followup is recommended. Evaluate for subsequent treatment strategy. TECHNIQUE: ??11.0 mCi of F-18 FDG by IV in the left antecubital fossa. PET/CT image acquisition from top of the head to the feet after approximately ??63 minutes post-injection with the CT being low-dose, non-contrast. No separate report for the CT was generated since it was used for attenuation correction and anatomic localization. Blood glucose level at the time of injection was 91 mg/dl. FINDINGS: Comparison made to prior PET/CT study from 04/24/2013. Head and neck: There is no focal uptake in the soft tissues of the head neck to indicate metastasis. Normal physiologic metabolic activity is seen in the brain with no focal uptake to indicate metastasis. Chest: There are no obvious pulmonary nodules and no FDG uptake in the lung parenchyma to indicate metastasis. There are no suspicious mediastinal, hilar or axillary lymph nodes. Heart is normal size with no evidence of pericardial effusion. Abdomen and pelvis: Normal physiologic activity is seen in the liver with no focal uptake to indicate metastasis. Heterogenous FDG uptake is seen throughout the bowel with no focal uptake to indicate metastasis. There are no FDG avid abdominal or pelvic lymph nodes. Hyperdense T-shaped intrauterine device, unchanged from the prior study. Benign appearing bilateral inguinal lymph nodes measuring up to 1.0 x 0.6 cm with SUV Max 0.9 (previously measured up to 1.1 x 0.7 cm with SUV Max 0.6). Elsewhere the visceral organs of the abdomen and pelvis are unremarkable. For reference, SUVmax of liver is 2.1, previous liver SUV Max 2.0. Musculoskeletal: Persistent sclerotic changes are seen in the manubrium and proximal sternum which demonstrates improved metabolic activity with SUV Max 2.0 (previously there is a focal region of FDG uptake with SUV Max 3.1). In addition, there has been interval improvement in metabolic activity in the lytic lesion at L5 is SUV Max 2.6 (previous SUV Max 3.3). The other previously identified sclerotic lesions in the cervical, thoracic and lumbar spine do not demonstrate FDG uptake, which is consistent with treated disease. There is a healed left posterior seventh rib fracture with no focal FDG uptake. There is spinal fusion hardware extending from the midcervical spine to T12. Procedure Note Renee Shin MD - 10/30/2017 Procedure: PET/CT Study. Referring Physician: Dr. Castillo Woods. HISTORY: 42-year-old woman with a history of Hodgkin's lymphoma diagnosedin September 2012, status post chemotherapy. Earlier sites of disease haveincluded the left supraclavicular, mediastinum(including rightparatracheal and large subcarinal mass), and right inguinal node. Prior osseous metastases have included lesionsinvolving the sternum, ribs, C7, thoracic/lumbar/sacral vertebrae,bilateral iliac wings, and left proximal femur/femoral neck. Recent PET/CTstudy from 04/24/2013 demonstrated interval development of subtle increased FDG uptake in the sternum which wasthought to represent benign reactive changes however malignancy cannot becompletely ruled out. Close followup is recommended. Evaluate forsubsequent treatment strategy. TECHNIQUE: 11.0 mCi of F-18 FDG by IV in the left antecubital fossa.PET/CT image acquisition from top of the head to the feet afterapproximately 63 minutes post-injection with the CT being low-dose,non-contrast. No separate report for the CT was generated since it was used for attenuation correction and anatomiclocalization. Blood glucose level at the time of injection was 91 mg/dl. FINDINGS: Comparison made to prior PET/CT study from 04/24/2013. Head and neck: There is no focal uptake in the soft tissues of the headneck to indicate metastasis. Normal physiologic metabolic activity is seenin the brain with no focal uptake to indicate metastasis. Chest: There are no obvious pulmonary nodules and no FDG uptake in thelung parenchyma to indicate metastasis. There are no suspiciousmediastinal, hilar or axillary lymph nodes. Heart is normal size with noevidence of pericardial effusion. Abdomen and pelvis: Normal physiologic activity is seen in the liver withno focal uptake to indicate metastasis. Heterogenous FDG uptake is seenthroughout the bowel with no focal uptake to indicate metastasis. Thereare no FDG avid abdominal or pelvic lymph nodes. Hyperdense T-shaped intrauterine device, unchanged from theprior study. Benign appearing bilateral inguinal lymph nodes measuring upto 1.0 x 0.6 cm with SUV Max 0.9 (previously measured up to 1.1 x 0.7 cmwith SUV Max 0.6). Elsewhere the visceral organs of the abdomen and pelvis are unremarkable. For reference, SUVmax of liver is 2.1, previous liver SUV Max 2.0. Musculoskeletal: Persistent sclerotic changes are seen in the manubriumand proximal sternum which demonstrates improved metabolic activity withSUV Max 2.0 (previously there is a focal region of FDG uptake with SUV Max3.1). In addition, there has been interval improvement in metabolic activity in the lytic lesion at L5 isSUV Max 2.6 (previous SUV Max 3.3). The other previously identifiedsclerotic lesions in the cervical, thoracic and lumbar spine do notdemonstrate FDG uptake, which is consistent with treated disease. There is a healed left posterior seventh ribfracture with no focal FDG uptake. There is spinal fusion hardwareextending from the midcervical spine to T12. IMPRESSION IMPRESSION: 1. Interval decreased metabolic activity is seen in the manubrium andproximal sternum as well as L5, as above. Given the interval improvedmetabolic activity in the absence of therapy, this is most likelybenign. 2. Stable non-FDG avid lytic and sclerotic osseous lesions which areconsistent with treated disease. 3. There are no new FDG avid lesions to indicate new sites metastasis. This report was approved by JAKY WOOD M.D. on 06/26/2013 5:37 PM. I, Dr. RENEE SHIN M.D. have personally reviewed and interpreted thisexamination/study. This report was electronically signed by RENEE SHIN M.D. on 06/26/20135:54 PM . Castillo Max MD NM ORDERABLES * GLUCOSE - POINT OF CARE (AMB) [facility] (06/26/2013) Renee Shin MD LAB - POINT OF CARE ORDERABLES [facility] * GLUCOSE - POINT OF CARE (AMB) [facility] (06/26/2013) Glucose POCT 91 mg/dL [facility] Capillary blood specimen (specimen) 06/26/2013 Renee Shin MD LAB - POINT OF CARE ORDERABLES [facility] documented in this encounter Visit Diagnoses Diagnosis Hodgkin's disease (HCC) documented in this encounter Care Teams Ornamental Rail Installer Relationship Specialty Start Date End Date Blake Lindsey MD [address] [place] [address] PCP - General 05/20/16 documented as of this encounter
--- OUTSIDE RECORDS SUMMARY | 2024-07-29 17:24 | XMS_ITS | Encounter Summary ---
Author Organization [facility] Health Address [address] [place] [address] Care Team Providers Care Grades 9 Through 12 Teacher Name Role Phone Blake Lindsey MD Primary Care Provider [phone] Encounter Details Date Type Department Care Team (Latest Contact Info) Description 02/20/2013 Hospital Outpatient Visit Historic [facility] PET [address] [place] [id number] Discharge Disposition: Home or Self Care Social [...] Diagnosis Comments PET CT WHOLE BODY Routine 02/20/2013 10: 55 AM CDT GLUCOSE - POINT OF CARE (AMB) [facility] Routine 02/20/2013 GLUCOSE - POINT OF CARE (AMB) [facility] Routine 08/02/1998 12:00 AM [employer] documented in this encounter Results * PET CT WHOLE BODY (02/20/2013 10:55 AM CDT) Anatomical Region Laterality Modality Other Impressions 02/20/2013 4:26 PM CDT IMPRESSION: 1. Normalization of FDG uptake in the sternum representing complete treatment response. 2. No new FDG avid lesions are identified. This report was approved ??by Venus Herring M.D. ?? on 02/20/2013 3:03 PM . I, Dr. RENEE SHIN M.D. have personally reviewed and interpreted this examination/study. This report was electronically signed by RENEE SHIN M.D. ??on 02/20/2013 4:26 PM . Narrative 02/20/2013 4:26 PM CDT Procedure: PET/CT STUDY Referring Physician: Dr. Woods HISTORY: 42-year-old female with Hodgkin lymphoma stage IV B status post chemotherapy. Last chemotherapy session was scheduled for February 19, 2013. Prior PET CT dated 01/09/2013 showed significant response to therapy with diminished size and uptake of the previously mentioned sites of lymphadenopathy and significant response with remaining FDG uptake in the sternum and right frontal bone suspicious for residual tumor along with normalization the metabolic activity within the spleen. TECHNIQUE: ??10.45 mCi of F-18 FDG by IV in the left AC fossa. PET/CT image acquisition from top of the head to the feet after approx. 60 min. post- injection with the CT being low-dose, non-contrast. No separate report for the CT was generated since it was of non-diagnostic quality. Blood glucose level at the time of injection was 122 mg/dl. FINDINGS: Comparison is made to prior PET/CT dated 01/09/2013. Head and neck: No abnormal FDG focus is present. Normal metabolic activity is identified in the brain parenchyma. Chest: No FDG avid mediastinal or hilar lymph nodes are identified. The heart size is normal. An old healed posterior left seventh rib fracture is identified. No FDG avid pulmonary nodules are identified. Diffuse groundglass opacities throughout both lungs likely related to hypoventilation. There is no pulmonary consolidation, pneumothorax, or pleural effusion. Abdomen and pelvis: No abnormal FDG uptake is identified in the abdomen and pelvis. No FDG avid retroperitoneal or mesenteric lymph nodes are identified. There are multiple radiodense foci within the right colon, likely representing ingested pills. An intrauterine device is identified in the uterine cavity. There is a focus of mild to moderate FDG uptake with SUV Max of 2.1 in the region of the right labia which most likely relates to contamination. Soft tissue density in the region of the right buttock most likely represents an injection granuloma. For reference, SUVmax of liver is 2.1. Musculoskeletal: There is diffuse marrow uptake throughout the axial skeleton in a pattern unchanged in comparison to the prior examination likely related to chemotherapy. Posterior spinal fusion orthopedic hardware extending from the mid cervical spine to the lower thoracic spine is identified. There is interval normalization of FDG uptake of the sternum since the prior examination. Procedure Note Renee Shin MD - 10/31/2017 Procedure: PET/CT STUDY Referring Physician: Dr. Woods HISTORY: 42-year-old female with Hodgkin lymphoma stage IV B status postchemotherapy. Last chemotherapy session was scheduled for February 19, 2013.Prior PET CT dated 01/09/2013 showed significant response to therapy withdiminished size and uptake of the previously mentioned sites of lymphadenopathy and significant responsewith remaining FDG uptake in the sternum and right frontal bone suspiciousfor residual tumor along with normalization the metabolic activity withinthe spleen. TECHNIQUE: 10.45 mCi of F-18 FDG by IV in the left AC fossa. PET/CT imageacquisition from top of the head to the feet after approx. 60 min.post-injection with the CT being low-dose, non-contrast. No separatereport for the CT was generated since it was of non-diagnostic quality. Blood glucose level at the time ofinjection was 122 mg/dl. FINDINGS: Comparison is made to prior PET/CT dated 01/09/2013. Head and neck: No abnormal FDG focus is present. Normal metabolic activityis identified in the brain parenchyma. Chest: No FDG avid mediastinal or hilar lymph nodes are identified. Theheart size is normal. An old healed posterior left seventh rib fracture isidentified. No FDG avid pulmonary nodules are identified. Diffuse groundglassopacities throughout both lungs likely related to hypoventilation. Thereis no pulmonary consolidation, pneumothorax, or pleural effusion. Abdomen and pelvis: No abnormal FDG uptake is identified in the abdomenand pelvis. No FDG avid retroperitoneal or mesenteric lymph nodes areidentified. There are multiple radiodense foci within the right colon,likely representing ingested pills. An intrauterine device is identified in the uterine cavity. There is a focusof mild to moderate FDG uptake with SUV Max of 2.1 in the region of theright labia which most likely relates to contamination. Soft tissuedensity in the region of the right buttock most likely represents an injection granuloma. For reference, SUVmax of liver is 2.1. Musculoskeletal: There is diffuse marrow uptake throughout the axialskeleton in a pattern unchanged in comparison to the prior examinationlikely related to chemotherapy. Posterior spinal fusion orthopedichardware extending from the mid cervical spine to the lower thoracic spine is identified. There is interval normalizationof FDG uptake of the sternum since the prior examination. IMPRESSION IMPRESSION: 1. Normalization of FDG uptake in the sternum representing completetreatment response. 2. No new FDG avid lesions are identified. This report was approved by Venus Herring M.D. on 02/20/2013 3:03 PM . I, Dr. RENEE SHIN M.D. have personally reviewed and interpreted thisexamination/study. This report was electronically signed by RENEE SHIN M.D. on 02/20/20134:26 PM . Castillo Max MD NM ORDERABLES * GLUCOSE - POINT OF CARE (AMB) [facility] (02/20/2013) Renee Shin MD LAB - POINT OF CARE ORDERABLES Performing Organization Address City/State/[facility] Co de Phone Number [facility] * GLUCOSE - POINT OF CARE (AMB) [facility] (08/02/1998 12:00 AM [employer]) Glucose POCT 115 mg/dL [facility] Capillary blood specimen (specimen) 08/02/1998 Renee Shin MD LAB - POINT OF CARE ORDERABLES [facility] documented in this encounter Visit Diagnoses Diagnosis Hodgkin's disease (HCC) documented in this encounter Care Teams Grades 9 Through 12 Teacher Relationship Specialty Start Date End Date Blake Lindsey MD [address] [place] [address] PCP - General 05/20/16 documented as of this encounter
--- OUTSIDE RECORDS SUMMARY | 2024-07-29 17:24 | XMS_ITS | Encounter Summary ---
Author Organization [facility] Health Address [address] [place] [address] Care Team Providers Care Patient Access Name Role Phone Blake Lindsey MD Primary Care Provider [phone] Encounter Details Date Type Department Care Team (Late st Contact Info) Description 02/10/2013 Hospital Outpatient Visit Historic [facility] [address] [place] [address] Castillo Max MD [address] [place] [address] [address] [place] [address] Social History Tobacco Use Types [...] Procedure Name Priority Date/Time Associated Diagnosis Comments TYPE + SCREEN PANEL STAT 02/10/2013 9 :17 AM CDT documented in this encounter Results * TYPE + SCREEN PANEL (02/10/2013 9:17 AM CDT) Interpretation ABO/Rh Patient O POS [facility] Antibody Screen NEGATIVE [facility] 02/10/2013 9:17 AM CDT 02/10/2013 10:05 AM CDT Castillo Max MD LAB - BLOOD BANK O RDERABLES Performing Organization Address City/State/[facility] Co de Phone Number [facility] [address] [place] [address] documented in this encounter Visit Diagnoses Not on filedocumented in this encounter Care Teams Patient Access Relationship Specialty Start Date End Date Blake Lindsey MD [address] [place] [address] PCP - General 05/20/16 documented as of this encounter
--- OUTSIDE RECORDS SUMMARY | 2024-07-29 17:24 | XMS_ITS | Encounter Summary ---
Author Organization [facility] Address [address] [facility] [place] [address] Care Team Providers Care Spray Dyer Name Role Phone Blake Lindsey MD Primary Care Provider [phone] Encounter Details Date Type Department Care Team (Late st Contact Info) Description 01/09/2013 Hospital Outpatient Visit Historic [facility] [address] [place] [phone] Castillo Max MD [address] [place] [address] Rd [address] [place] [address] Social History Tobacco Use Types Packs/Day Years [...] filedocumented in this encounter Care Teams Spray Dyer Relationship Specialty Start Date End Date Blake Lindsey MD [address] [place] [address] PCP - General 05/20/16 documented as of this encounter
--- OUTSIDE RECORDS SUMMARY | 2024-07-29 17:24 | XMS_ITS | Encounter Summary ---
Author Organization [facility] Health Address [address] [place] [address] Care Team Providers Care Mainspring Former Brace End Name Role Phone Blake Lindsey MD Primary Care Provider Encounter Details Date Type Department Care Team (Late st Contact Info) Description 11/10/2012 Anesthesia Historic Visit [facility] [address] [place] [phone] Social History Tobacco Use Types Packs/Day Years [...] on filedocumented in this encounter Care Teams Mainspring Former Brace End Relationship Specialty Start Date End Date Blake Lindsey MD [address] [place] [address] PCP - General 05/20/16 documented as of this encounter
--- OUTSIDE RECORDS SUMMARY | 2024-07-29 17:24 | XMS_ITS | Encounter Summary ---
Author Organization [facility] Health Address [address] [facility] [place] [address] Care Team Providers Care Profile Grinder Name Role Phone Blake Lindsey MD Primary Care Provider [phone] Encounter Details Date Type Department Care Team (Latest Contact Info) Description 07/17/2013 Hospital Outpatient Visit Historic [facility] OUT[facility] [address] [place] [phone] Castillo Max MD [address] [place] [address] [address] [place] [phone] Discharge Disposition: Home or Self Care Social [...] on filedocumented in this encounter Care Teams Profile Grinder Relationship Specialty Start Date End Date Blake Lindsey MD [address] [place] [address] PCP - General 05/20/16 documented as of this encounter
--- OUTSIDE RECORDS SUMMARY | 2024-07-29 17:24 | XMS_ITS | Encounter Summary ---
Author Organization [facility] Address [address] [facility] [place] [address] Care Team Providers Care Packing House Supervisor Name Role Phone Blake Lindsey MD Primary Care Provider [phone] Encounter Details Date Type Department Care Team (Late st Contact Info) Description 02/18/2013 Hospital Outpatient Visit Historic [facility] [address] [place] [address] Castillo Max MD [address] [place] [address] [address] [place] [address] Social History Tobacco Use Types Packs/Day Years [...] on filedocumented in this encounter Care Teams Packing House Supervisor Relationship Specialty Start Date End Date Blake Lindsey MD [address] [place] [address] PCP - General 05/20/16 documented as of this encounter
--- OUTSIDE RECORDS SUMMARY | 2024-07-29 17:24 | XMS_ITS | Encounter Summary ---
Author Organization [facility] Health Address [address] [facility] [place] [address] Care Team Providers Care Advertising Space Clerk Name Role Phone Blake Lindsey MD Primary Care Provider [phone] Encounter Details Date Type Department Care Team (Latest Contact Info) Description 02/20/2013 Hospital Outpatient Visit Historic [facility] OUT[facility] [address] [place] [phone] Castillo Max MD [address] [place] [address] [address] [place] [address] Discharge Disposition: Home or Self Care Social [...] Diagnosis Comments CBC W AUTO DIFFERENTIAL STAT 02/20/2013 8:48 AM CDT COMPREHENSIVE METABOLIC PANEL STAT 02/20/2013 8:48 AM CDT PHOSPHORUS BLOOD STAT 02/20/2013 8:48 AM CDT MAGNESIUM BLOOD STAT 02/20/2013 8:48 AM CDT LDH BLOOD STAT 02/20/2013 8:48 AM CDT documented in this encounter Results * (ABNORMAL) CBC W AUTO DIFFERENTIAL (02/20/2013 8:48 AM CDT) WBC 5.4 3.5 - 10.5 10^3/uL [facility] WBC (corrected for NRBC) COMMENT [facility] Comment:THE WBC COUNT IS COR RECTED BY THE INSTRUMENT FOR NRBC'S. RBC 2.97(L) 3.90 - 5.00 10^6/uL [facility] Hemoglobin 9.2(L) 12.0 - 15.5 g/dL [facility] Hematocrit 27.0(L) 35.0 - 45.0 % [facility] MCV 90.9 81.0 - 97.0 FL [facility] MCH 31.0 28.0 - 34.0 PG [facility] MCHC 34.1 32.0 - 36.0 G/DL [facility] Platelet 93(L) 150 - 400 10^3/uL [facility] Comment:ALL CBC PARAMETERS H AVE BEEN CHECKED. Comment Platelet COMMENT [facility] Comment: WHEN REPORTED, PLT. COUNT HAS BEEN CONFIRMED BY SLIDE REVIEW. RDW 17.9(H) 11.2 - 14.8 % [facility] RDW-SD 54.6(H) 36 - 50 FL [facility] MPV 9.3 9.3 - 12.8 FL [facility] nRBC Absolute 0.11(H) 0 10^3/uL [facility] nRBC Auto 2.0(H) 0 % [facility] Differential Type MANUAL [facility] Neutrophils Absolute Manual 4.97 1.7 - 7.0 10^3/uL [facility] Comment:(BANDS AND SEGS) X W BC = NEUT # (ANC) Lymphocytes Absolute Manual 0.11(L) 0.9 - 2.9 10^3/uL [facility] Monocyte Absolute Manual 0.22(L) 0.3 - 0.9 10^3/uL [facility] Band % Manual 6 0 - 10 % [facility] Neutrophils % manual 86(H) 30 - 60 % [facility] Lymphocytes % manual 2(L) 20 - 45 % [facility] Monocytes % Manual 4 2 - 10 % [facility] Metamyelocytes % Manual 2(H) 0 % [facility] Platelet Estimate DECREASED [facility] Anisocytosis 1+(A) NONE SEEN [facility] Macrocytosis 1+(A) NONE SEEN [facility] Polychromasia 1+(A) NONE SEEN [facility] Tear Drop Cells 1+(A) NONE SEEN [facility] Comment [facility] Comment:SMEAR REVIEWED. 02/20/2013 8:48 AM CDT 02/20/2013 8:56 AM CDT Castillo Max MD LAB - HEMATOLOGY O RDERABLES Performing Organization Address [facility] de Phone Number [address] [phone] * PHOSPHORUS BLOOD (02/20/2013 8:48 AM CDT) Phosphorus 4.5 2.3 - 4.7 mg/dL [facility] 02/20/2013 8:48 AM CDT 02/20/2013 8:56 AM CDT Castillo Max MD LAB - CHEMISTRY OR DERABLES Performing Organization Address [facility] Co de Phone Number [address] [phone] * MAGNESIUM BLOOD (02/20/2013 8:48 AM CDT) Magnesium 2.0 1.6 - 2.6 mg/dL [facility] 02/20/2013 8:48 AM CDT 02/20/2013 8:56 AM CDT Castillo Max MD LAB - CHEMISTRY OR DERABLES Performing Organization Address [facility] Co de Phone Number [place] [address] [phone] * LDH BLOOD (02/20/2013 8:48 AM CDT) LDH Total 238 125 - 243 Units/L [facility] 02/20/2013 8:48 AM CDT 02/20/2013 8:56 AM CDT Castillo Max MD LAB - CHEMISTRY OR DERABLES [facility] [address] [phone] * (ABNORMAL) COMPREHENSIVE METABOLIC PANEL (02/20/2013 8:48 AM CDT) BUN 13 7 - 26 mg/dL [facility] Creatinine 0.5(L) 0.6 - 1.2 mg/dL [facility] eGFR by MDRD > 60 ML/MIN [facility] Comment: Chronic kidney disease: ??<60 ml/min Kidney failure: ?<15 ml/min Based on BSA of 1.73m2. Sodium 141 136 - 145 mmol/L [facility] Potassium 4.1 3.5 - 4.5 mmol/L [facility] Chloride 103 98 - 107 mmol/L [facility] CO2 23 22 - 29 mmol/L [facility] Glucose 122(H) 70 - 115 mg/dL [facility] Calcium 10.0 8.4 - 10.2 mg/dL [facility] Protein Total 6.4 6.0 - 8.3 g/dL [facility] Albumin 3.6 3.4 - 5.0 g/dL [facility] Bilirubin Total 0.3 0.2 - 1.2 mg/dL [facility] Alkaline Phosphatase 72 40 - 150 Units/L [facility] ALT 11 0 - 55 Units/L [facility] AST 13 5 - 34 Units/L [facility] Anion Gap 19(H) 8 - 18 [facility] BUN/Creatinine Ratio 26(H) 7 - 23 [facility] Osmolality Calculation 277 270 - 300 mOsm/kg [facility] Albumin/Globulin Ratio 1.3 1.1 - 2.3 [facility]ORATORY [facility] 02/20/2013 8:48 AM CDT 02/20/2013 8:56 AM CDT Castillo Max MD LAB - CHEMISTRY OR DERABLES [facility] [address] [phone] documented in this encounter Visit Diagnoses Not on filedocumented in this encounter Care Teams Advertising Space Clerk Relationship Specialty Start Date End Date Blake Lindsey MD [address] [place] [address] PCP - General 05/20/16 documented as of this encounter
--- OUTSIDE RECORDS SUMMARY | 2024-07-29 17:24 | XMS_ITS | Encounter Summary ---
Author Organization [facility] Health Address [address] [facility] [place] [address] Care Team Providers Care Planting Material Carrier Name Role Phone Blake Lindsey MD Primary Care Provider [phone] Encounter Details Date Type Department Care Team (Latest Contact Info) Description 10/09/2013 Hospital Outpatient Visit Historic [facility] [address] [place] [address] Castillo Max MD [address] [place] [address] [address] [place] [address] Discharge Disposition: Home or Self Care Social [...] Procedure Name Priority Date/Time Associated Diagnosis Comments IGM BLOOD Routine 10/12/2013 1:26 PM CDT IGA BLOOD Routine 10/12/2013 1:26 PM CDT documented in this encounter Results * IGM BLOOD (10/12/2013 1:26 PM CDT) IgM 119 22 - 293 mg/dL [facility] 10/12/2013 1:26 PM CDT 10/12/2013 1:40 PM CDT Castillo Max MD LAB - CHEMISTRY OR DERABLES Performing Organization Address [facility] Co de Phone Number [address] [phone] * IGA BLOOD (10/12/2013 1:26 PM CDT) IgA 117 87 - 534 mg/dL [facility] 10/12/2013 1:26 PM CDT 10/12/2013 1:40 PM CDT Castillo Max MD LAB - CHEMISTRY OR DERABLES Performing Organization Address [facility] Co de Phone Number [address] [phone] documented in this encounter Visit Diagnoses Not on filedocumented in this encounter Care Teams Planting Material Carrier Relationship Specialty Start Date End Date Blake Lindsey MD [address] [place] [address] PCP - General 05/20/16 documented as of this encounter
--- OUTSIDE RECORDS SUMMARY | 2024-07-29 17:24 | XMS_ITS | Encounter Summary ---
Author Organization [facility] Address [address] [facility] [place] [address] Care Team Providers Care Respiratory Care Faculty Name Role Phone Blake Lindsey MD Primary Care Provider [phone] Encounter Details Date Type Department Care Team (Latest Contact Info) Description 03/03/2013 Hospital Outpatient Visit Historic [facility] [address] [place] [phone] Castillo Max MD [address] [place] [address] [address] [place] [phone] Discharge Disposition: Home or Self Care Social [...] Sign Reading Time Taken Comments Blood Pressure 103/68 03/03/2013 12:23 PM CDT Pulse 88 03/03/2013 12:23 PM CDT Temperature 36.9 ??C (98.5 ??F) 03/03/2013 12:23 PM C DT Respiratory Rate 20 03/03/2013 12:23 PM CDT Oxygen Saturation 100% 03/03/2013 12:23 PM CDT Inhaled Oxygen Concentration - - Weight 71.7 kg (158 lb) 03/03/2013 12:23 PM CDT Height 160 cm (5' 3 ) 03/03/2013 12:23 PM CDT Body Mass Index 27.99 03/03/2013 12:23 PM CDT documented in this encounter Plan of Treatment Not on file documented as of this encounter Procedures Procedure Name Priority Date/Time Associated Diagnosis Comments PLATELET COUNT AUTO STAT 03/03/2013 1 2:45 PM CDT PREPARE PLATELET PHERESIS UNIT(S) STAT 03/03/2013 11:15 AM CDT documented in this encounter Results * (ABNORMAL) PLATELET COUNT AUTO (03/03/2013 12:45 PM CDT) Platelet 45(LL) 150 - 400 10^3/uL [facility] Comment: RESULT CONFIRMED BY REPEAT ANALYSIS, CALLED TO AND READ BACK BY ??AT 1303 ON 03/03/13. RESULT CONFIRMED BY REPEAT ANALYSIS, CALLED TO AND READ BACK BY NYLA AT 1304 ON 03/03/13. Venous blood specimen (specimen) BLOOD SPECIMEN / Unknown 03/03/2013 12:45 PM CDT 03/03/2013 12:57 PM CDT Castillo Max MD LAB - HEMATOLOGY O RDERABLES [facility] [address] [place] [address] * PREPARE PLATELET PHERESIS UNIT(S) (03/03/2013 11:15 AM CDT) Pathologist [facility] Blood Product [id number] ? O+ ?[id number] ? TRANSFUSED ? 03/03/13 1130 ?? [facility] 03/03/2013 11:1 5 AM CDT 03/03/2013 11:15 AM CDT Castillo Max MD LAB - BLOOD BANK O RDERABLES [place] [address] [address] [phone] documented in this encounter Visit Diagnoses Not on filedocumented in this encounter Care Teams Respiratory Care Faculty Relationship Specialty Start Date End Date Blake Lindsey MD [address] [place] [address] PCP - General 05/20/16 documented as of this encounter
--- OUTSIDE RECORDS SUMMARY | 2024-07-29 17:24 | XMS_ITS | Encounter Summary ---
Author Organization [facility] Health Address [address] [place] [address] Care Team Providers Care Cleat Blanker Name Role Phone Blake Lindsey MD Primary Care Provider [phone] Encounter Details Date Type Department Care Team (Latest Contact Info) Description 02/10/2013 Hospital Outpatient Visit Historic [facility] [address] [place] [phone] Castillo Max MD [address] [place] [address] [address] [place] [phone] Discharge Disposition: Home or Self Care Social [...] Sign Reading Time Taken Comments Blood Pressure 91/51 02/10/2013 4:29 PM CDT Pulse 92 02/10/2013 4:29 PM CDT Temperature 37.2 ??C (99 ??F) 02/10/2013 4:29 PM CDT Respiratory Rate 20 02/10/2013 4:29 PM CDT Oxygen Saturation - - Inhaled Oxygen Concentration - - Weight - - Height - - Body Mass Index - - documented in this encounter Plan of Treatment Not on file documented as of this encounter Procedures Procedure Name Priority Date/Time Associated Diagnosis Comments PLATELET COUNT AUTO STAT 02/10/2013 4 :45 PM CDT PLATELET COUNT AUTO STAT 02/10/2013 1 :00 PM CDT CROSSMATCH RBC LEUKOREDUCED STAT 02/10/2013 12:28 PM CDT PREPARE PLATELET PHERESIS UNIT(S) STAT 02/10/2013 11:30 AM CDT PREPARE PLATELET PHERESIS UNIT(S) STAT 02/10/2013 11:30 AM CDT documented in this encounter Results * (ABNORMAL) PLATELET COUNT AUTO (02/10/2013 4:45 PM CDT) Platelet 4(LL) 150 - 400 10^3/uL [facility] Comment: RESULT CONFIRMED BY REPEAT ANALYSIS, CALLED TO AND READ BACK BY ??AT 1704 ON 02/10/13. RESULT CONFIRMED BY REPEAT ANALYSIS, CALLED TO AND READ BACK BY NYLA AT 1704 ON 02/10/13. Venous blood specimen (specimen) BLOOD SPECIMEN / Unknown 02/10/2013 4:45 PM CDT 02/10/2013 4:49 PM CDT Castillo Max MD LAB - HEMATOLOGY O RDERABLES [address] [phone] * (ABNORMAL) PLATELET COUNT AUTO (02/10/2013 1:00 PM CDT) Platelet 5(LL) 150 - 400 10^3/uL [facility] Comment: RESULT CONFIRMED BY REPEAT ANALYSIS, CALLED TO AND READ BACK BY ??AT 1340 ON 02/10/13. Venous blood specimen (specimen) 02/10/2013 1:00 PM CDT 02/10/2013 1:16 PM CDT Castillo Max MD LAB - HEMATOLOGY O ROSSI Performing Organization Address [facility] Co de Phone Number [address] [phone] * CROSSMATCH RBC LEUKOREDUCED (02/10/2013 12:28 PM CDT) [facility] Blood Product [id number] ?O+ ?[id number] ? TRANSFUSED ? 02/10/13 1315 ?? [facility] 02/10/2013 12:2 8 PM CDT 02/10/2013 12:28 PM CDT Castillo Max MD LAB - BLOOD BANK Isi RICHEY Performing Organization Address [facility] de Phone Number [address] [phone] * PREPARE PLATELET PHERESIS UNIT(S) (02/10/2013 11:30 AM CDT) [facility] Blood Product [id number] ? O- ?[id number] ? TRANSFUSED ? 02/10/13 1600 ?? [facility] 02/10/2013 11:3 0 AM CDT 02/10/2013 11:30 AM CDT Castillo Max MD LAB - BLOOD BANK O ROSSI Performing Organization Address [facility] Co de Phone Number [address] [phone] * PREPARE PLATELET PHERESIS UNIT(S) (02/10/2013 11:30 AM CDT) [facility] Blood Product [id number] ? O+ ?[id number] ? TRANSFUSED ? 02/10/13 1210 ?? [facility] 02/10/2013 11:3 0 AM CDT 02/10/2013 11:30 AM CDT Castillo Max MD LAB - BLOOD BANK O RDERABLES Performing Organization Address City/State/[facility] Co de Phone Number [address] [phone] documented in this encounter Visit Diagnoses Not on filedocumented in this encounter Care Teams Cleat Blanker Relationship Specialty Start Date End Date Blake Lindsey MD [address] [place] [address] PCP - General 05/20/16 documented as of this encounter
--- OUTSIDE RECORDS SUMMARY | 2024-07-29 17:24 | XMS_ITS | Encounter Summary ---
Author Organization [facility] Health Address [address] [place] [address] Care Team Providers Care Tool Programmer Name Role Phone Blake Lindsey MD Primary Care Provider [phone] Encounter Details Date Type Department Care Team (Latest Contact Info) Description 04/24/2013 Hospital Outpatient Visit Historic [facility] [address] [place] [phone] Castillo Max MD [address] [place] [address] [address] [place] [phone] Discharge Disposition: Home or Self Care Social [...] on filedocumented in this encounter Care Teams Tool Programmer Relationship Specialty Start Date End Date Blake Lindsey MD [address] [place] [address] PCP - General 05/20/16 documented as of this encounter
--- OUTSIDE RECORDS SUMMARY | 2024-07-29 17:24 | XMS_ITS | Encounter Summary ---
Author Organization [facility] Health Address [address] [facility] [place] [address] Care Team Providers Care Laboratory Inspector Name Role Phone Blake Lindsey MD Primary Care Provider [phone] Encounter Details Date Type Department Care Team (Late st Contact Info) Description 03/28/2013 Hospital Outpatient Visit Historic [facility] [address] [place] [address] Castillo Max MD [address] [place] [address] [address] [place] [address] Social History Tobacco Use Types [...] Date/Time Associated Diagnosis Comments LDH BLOOD STAT 04/11/2013 9:08 AM CDT documented in this encounter Results * (ABNORMAL) LDH BLOOD (04/11/2013 9:08 AM CDT) LDH Total 350(H) 125 - 243 Units/L [facility] 04/11/2013 9:08 AM CDT 04/11/2013 9:54 AM CDT Castillo Max MD LAB - CHEMISTRY OR DERABLES Performing Organization Address City/State/[facility] Co de Phone Number [facility] [address] [phone] documented in this encounter Visit Diagnoses Not on filedocumented in this encounter Care Teams Laboratory Inspector Relationship Specialty Start Date End Date Blake Lindsey MD [address] [place] [address] PCP - General 05/20/16 documented as of this encounter
--- OUTSIDE RECORDS SUMMARY | 2024-07-29 17:24 | XMS_ITS | Encounter Summary ---
Author Organization [facility] Health Address [address] [facility] [place] [address] Care Team Providers Care Trailer Technician Name Role Phone Blake Lindsey MD Primary Care Provider [phone] Encounter Details Date Type Department Care Team (Latest Contact Info) Description 06/26/2013 Hospital Outpatient Visit Historic [facility] [address] [place] [phone] Castillo Max MD [address] [place] [address] [address] [place] [phone] Discharge Disposition: Home or Self Care Social [...] on filedocumented in this encounter Care Teams Trailer Technician Relationship Specialty Start Date End Date Blake Lindsey MD [address] [place] [address] PCP - General 05/20/16 documented as of this encounter
--- OUTSIDE RECORDS SUMMARY | 2024-07-29 17:24 | XMS_ITS | Encounter Summary ---
Author Organization [facility] Health Address [address] [place] [address] Care Team Providers Care Welding Engineer Name Role Phone Blake Lindsey MD Primary Care Provider Encounter Details Date Type Department Care Team (Late st Contact Info) Description 03/14/2013 Hospital Outpatient Visit Historic [facility] [address] [place] [address] Castillo Max MD [address] [place] [address] [address] [place] [address] Social History Tobacco Use Types Packs/Day Years [...] on filedocumented in this encounter Care Teams Welding Engineer Relationship Specialty Start Date End Date Blake Lindsey MD [address] [place] [address] PCP - General 05/20/16 documented as of this encounter
--- OUTSIDE RECORDS SUMMARY | 2024-07-29 17:24 | XMS_ITS | Encounter Summary ---
Author Organization [facility] Health Address [address] [place] [address] Care Team Providers Care Pin Machine Tender Name Role Phone Blake Lindsey MD Primary Care Provider [phone] Encounter Details Date Type Department Care Team (Latest Contact Info) Description 04/24/2013 Hospital Outpatient Visit Historic [facility] PET [address] [place] [id number] Discharge Disposition: Home or Self Care Social [...] Diagnosis Comments PET CT WHOLE BODY Routine 04/24/2013 1:0 0 PM CDT GLUCOSE - POINT OF CARE (AMB) [facility] Routine 04/24/2013 GLUCOSE - POINT OF CARE (AMB) [facility] Routine 08/02/1998 12:00 AM HEDIS COORDINATOR documented in this encounter Results * PET CT WHOLE BODY (04/24/2013 1:00 PM CDT) Anatomical Region Laterality Modality Other Impressions 04/24/2013 1:46 PM CDT IMPRESSION: Interval development of subtle increased FDG uptake in the sternum as above. Findings likely represent benign reactive changes, but since this was an area with known disease involvement malignancy cannot be entirely excluded. Recommend close followup. This report was electronically signed by MARSHAL NOEL D.O. ??on 04/24/2013 1:46 PM . Narrative 04/24/2013 1:46 PM CDT Procedure: PET/CT Study. Referring Physician: Dr. Max HISTORY: 42-year-old female with a history of Hodgkin's lymphoma diagnosed in September 2012 status post chemotherapy. The prior PET/CT from 02/20/2013 demonstrated complete treatment response with no new lesions. Evaluate for subsequent treatment strategy. TECHNIQUE: ??11.3 mCi of F-18 FDG by IV in the left antecubital fossa. PET/CT image acquisition from top of the head to the feet after approximately ??60 minutes post-injection with the CT being low-dose, non-contrast. No separate report for the CT was used for attenuation correction and anatomic localization. Blood glucose level at the time of injection was 80 mg/dl. FINDINGS: Comparison made to prior exam dated 02/20/2013. Head and neck: The metabolic activity in the brain remains unremarkable. Symmetrical increased metabolic activity in the anterior mouth, likely normal variant. No abnormal FDG focus is present. Chest: The lungs are clear with no evidence of pneumothorax or pleural effusion. No abnormal FDG avid mediastinal lymph nodes. Abdomen and pelvis: The liver, kidneys, adrenal glands, spleen and pancreas are unremarkable. Heterogenous FDG uptake throughout the bowel, normal variant. An intrauterine device is again identified. Benign-appearing bilateral inguinal lymph nodes. For reference, SUVmax of liver is 2.0. Musculoskeletal: Diffuse sclerotic changes in noted throughout the sternum. There is interval development of a subtle FDG focus within the sternum with SUV max 3.1 (previously 1.7). Sclerotic lesions are noted in the body of L5, L1, midthoracic spine and lower cervical spine with mild FDG uptake, likely representing treated lesions. Spinal fusion orthopedic hardware is again identified from the mid cervical spine to the lower thoracic spine. A healed left posterior seventh rib fracture is noted. Procedure Note Marshal Dumont, DO - 10/31/2017 Procedure: PET/CT Study. Referring Physician: Dr. Max HISTORY: 42-year-old female with a history of Hodgkin's lymphoma diagnosedin September 2012 status post chemotherapy. The prior PET/CT from 02/20/2013demonstrated complete treatment response with no new lesions. Evaluate forsubsequent treatment strategy. TECHNIQUE: 11.3 mCi of F-18 FDG by IV in the left antecubital fossa.PET/CT image acquisition from top of the head to the feet afterapproximately 60 minutes post-injection with the CT being low-dose,non-contrast. No separate report for the CT was used for attenuation correction and anatomic localization. Blood glucoselevel at the time of injection was 80 mg/dl. FINDINGS: Comparison made to prior exam dated 02/20/2013. Head and neck: The metabolic activity in the brain remains unremarkable.Symmetrical increased metabolic activity in the anterior mouth, likelynormal variant. No abnormal FDG focus is present. Chest: The lungs are clear with no evidence of pneumothorax or pleuraleffusion. No abnormal FDG avid mediastinal lymph nodes. Abdomen and pelvis: The liver, kidneys, adrenal glands, spleen andpancreas are unremarkable. Heterogenous FDG uptake throughout the bowel,normal variant. An intrauterine device is again identified.Benign-appearing bilateral inguinal lymph nodes. For reference, SUVmax of liver is 2.0. Musculoskeletal: Diffuse sclerotic changes in noted throughout thesternum. There is interval development of a subtle FDG focus within thesternum with SUV max 3.1 (previously 1.7). Sclerotic lesions are noted inthe body of L5, L1, midthoracic spine and lower cervical spine with mild FDG uptake, likely representing treatedlesions. Spinal fusion orthopedic hardware is again identified from themid cervical spine to the lower thoracic spine. A healed left posteriorseventh rib fracture is noted. IMPRESSION IMPRESSION: Interval development of subtle increased FDG uptake in the sternum asabove. Findings likely represent benign reactive changes, but since thiswas an area with known disease involvement malignancy cannot be entirelyexcluded. Recommend close followup. This report was electronically signed by MARSHAL NOEL D.O. on 9/23/86345:46 PM . Castillo Max MD NM ORDERABLES * GLUCOSE - POINT OF CARE (AMB) [facility] (04/24/2013) Marshal Dumont DO LAB - POINT OF CARE ORDERABLES Performing Organization Address City/[facility] Co de Phone Number [facility] * GLUCOSE - POINT OF CARE (AMB) [facility] (08/02/1998 12:00 AM HEDIS COORDINATOR) Glucose POCT 80 mg/dL [facility] Capillary blood specimen (specimen) 08/02/1998 Marshal Dumont DO LAB - POINT OF CARE ORDERABLES Performing Organization Address City/[facility] Co de Phone Number [facility] documented in this encounter Visit Diagnoses Diagnosis Hodgkin's disease (HCC) Other secondary thrombocytopenia Neutropenia (HCC) documented in this encounter Care Teams Pin Machine Tender Relationship Specialty Start Date End Date Blake Lindsey MD [address] [place] [address] PCP - General 05/20/16 documented as of this encounter
--- OUTSIDE RECORDS SUMMARY | 2024-07-29 17:43 | XMS_ITS | Encounter Summary ---
Author Organization [facility] Address [address] [place] [address]. [place] [address] [place] [address] Care Team Providers Care Hosiery Repairer Name Role Phone Blake Lindsey MD Primary Care Provider [phone] Encounter Details Date Type Department Care Team (Latest Contact Info) Description 01/02/2021 Travel Social History Tobacco Use Types Packs/Day Years Used Date Smoking Tobacco: Former Cigarettes Q uit: 1997 Smokeless Tobacco: Never Alcohol Use Standard Drinks/Week Comments Yes 1.7 (1 standard drink = 0.6 oz p ure alcohol) Comments No Sex and Gender Information Value Date Recorded Sex Assigned at Not on file Legal Sex Female 3:40 AM CDT Gender Identity Not on file Sexual Orientation Not on file COVID-19 Exposure Response Date Recorded In the last month, have you been in contact with someone who was confirmed or suspected to have Coronavirus / COVID-19? No / Unsure 01/02/2021 2:53 PM CDT documented as of this encounter Plan of Treatment Not on file documented as of this encounter Visit Diagnoses Not on filedocumented in this encounter Care Teams Hosiery Repairer Relationship Specialty Start Date End Date Blake Lindsey MD [address] [place] [address] PCP - General FAMILY PRACTICE 03/03/19 documented as of this encounter
--- OUTSIDE RECORDS SUMMARY | 2024-07-29 17:43 | XMS_ITS | Encounter Summary ---
Author Organization [facility] Address [address] [place] [address]. [place] [address] [place] [address] Care Team Providers Care Wire Spring Relay Adjuster Name Role Phone Blake Lindsey MD Primary Care Provider [phone] Reason for Referral * Imaging (Routine) - Closed Specialty Diagnoses / Procedures Referred By Contac t Referred To Contact RADIOLOGY Diagnoses Cervicalgia Procedures MRI CERV SPINE WO CON Amie Gibson NP [facility] [address] [place] [phone] Phone: tel: fax: Referral ID Status Reason Start Date Expiration Date Visits Re quested Visits Authorized [id number] Closed 06/03/2022 06/03/2023 1 1 R MANAGER Reason for Visit * Imaging (Routine) - Closed Specialty Diagnoses / Procedures Referred By Contac t Referred To Contact RADIOLOGY Diagnoses Cervicalgia Procedures MRI CERV SPINE WO CON Amie Gibson NP [facility] [address] [place] [phone] Phone: tel: fax: Referral ID Status Reason Start Date Expiration Date Visits Re quested Visits Authorized [id number] Closed 06/03/2022 06/03/2023 1 1 Encounter Details Date Type Department Care Team (Late st Contact Info) Description 06/16/2022 12:45 PM POKER MANAGER - 06/16/2022 11:59 PM POKER MANAGER Hospital Encounter [facility] [address] [place] [address] Amie Gibson NP [facility]dat[facility] [address] [place] [phone] Discharge Disposition: Home or Self Care (Routine Discharge) Social History Tobacco Use Types Packs/Day Years [...] Exposure Response Date Recorded In the last 10 days, have yo u been in contact with someone who was confirmed or suspected to have Coronavirus/COVID-19? No / Unsure 06/16/2022 1:43 PM POKER MANAGER documented as of this encounter Medications at Time of Discharge albuterol (2.5 MG/3ML) 0.083% nebulizer solution Take 3 mLs (2.5 mg total) by nebulization every 4 (four) hours as needed for Wheezing. 60 vial 04/09/2020 albuterol sulfate HFA 108 (90 Base) MCG/ACT inhaler Inhale 2 puffs into the lungs every 4 (four) hours as needed for Wheezing or Shortness of breath (cough). 1 Inhaler 04/09/2020 atorvastatin 10 MG tablet Take 10 mg by mouth nightly. 03/02/2019 ferrous sulfate, 65 mg elemental, (FEROSUL) 325 (65 FE) MG tablet TAKE 1 TABLET BY MOUTH ONCE DAILY, TAKE AT TGHE SAME TIME YOUR VITAMIN TABLET 04/08/2022 fluticasone propionate (FLONASE) 50 MCG/ACT nasal spray 1 spray by Each Nostril route 2 (two) times a day. 16 g 04/09/2020 furosemide 20 MG tablet Take 20 mg by mouth daily. 02/23/2019 omeprazole 20 MG capsule Take 20 mg by mouth daily. 3 01/26/2019 oxyCODONE ER (XTAMPZA ER) 9 MG Capsule Extended Release 12 hour Abuse-Deterrent 12 hr abuse-deterrent capsule QUEtiapine 100 MG tablet Take 100 mg by mouth nightly at bedtime. 01/17/2020 QUEtiapine 50 MG tablet Take 50 mg by mouth nightly at bedtime. 0 02/07/2019 spironolactone 25 MG tablet Take 25 mg by mouth daily. 04/01/2020 SUMAtriptan 50 MG tablet Take 50 mg by mouth as needed. 0 02/16/2019 traZODone 50 MG tablet 03/30/2020 lamotrigine 100 MG tablet Take 100 mg by mouth daily. 01/04/2019 3 documented as of this encounter Plan of Treatment Not on file documented as of this encounter Procedures Procedure Name Priority Date/Time Associated Diagnosis Comments MRI CERV SPINE WO CON Routine 06/16/2022 2:51 PM POKER MANAGER Cervicalgia documented in this encounter Results * MRI CERV SPINE WO CON (06/16/2022 2:51 PM POKER MANAGER) Anatomical Region Laterality Modality Spine Magnetic Resonan ce 06/17/2022 2:44 PM POKER MANAGER Impressions 06/17/2022 2:51 PM POKER MANAGER IMPRESSION: 1. Postsurgical and multilevel degenerative changes in the cervical spine, as detailed above. 2. No definite cervical cord signal abnormality, though image quality is somewhat compromised by artifact. Ordered By: AMIE GIBSON Interpreted By: Yves Crook MD, 06/17/2022 2:44 PM Narrative 06/17/2022 2:51 PM POKER MANAGER DATE: 06/16/2022 2:25 PM INDICATION: Chronic neck pain. Prior cervical surgery. EXAMINATION: MRI of the cervical spine without contrast. TECHNIQUE: Multiplanar and multisequence MRI images of the cervical spine were obtained without contrast. COMPARISON: Cervical CT 08/15/2020 FINDINGS: Straightening of the cervical lordosis. Slight retrolisthesis of C3 on C4 and C4 on C5. Otherwise the cervical vertebral alignment, vertebral body heights, and facet alignment are maintained. There are post surgical changes of multilevel posterior cervical thoracic fusion extending from C5 inferiorly, the caudal extent of which is incompletely imaged. No definite abnormal signal seen in the cervical cord, though image quality is somewhat compromised by artifact. Multilevel degenerative changes are evident in the cervical spine with disc generation, endplate/uncovertebral osteophytes, mild ligamentum flavum thickening, and facet hypertrophy noted. Craniocervical junction and visualized posterior fossa contents are unremarkable. Imaged portions of the soft tissues reveal no definite acute findings. C2-C3: Disc bulge. Mild ligamentum flavum thickening. Facet hypertrophy. Flattening of the ventral thecal sac with minimal canal stenosis. No significant foraminal narrowing. C3-C4: Slight retrolisthesis. Disc bulge. Small uncovertebral osteophytes. Facet hypertrophy. Flattening of the ventral thecal sac without significant canal stenosis. Moderate left and mild narrowing. C4-C5: Slight retrolisthesis. Disc bulge. Uncovertebral osteophytes. Mild ligamentum flavum thickening. Facet hypertrophy. Mild canal stenosis with partial effacement of the ventral thecal sac. At least mild foraminal narrowing. C5-C6: Partial ankylosis of the disc space. Post surgical changes. Endplate osteophytes. Facet hypertrophy. Flattening of the ventral thecal sac, with minimal canal stenosis. Minimal foraminal narrowing. C6-C7: Partial ankylosis of the disc space. Post surgical changes. Endplate osteophytes. Facet hypertrophy. Mild canal stenosis. Mild foraminal narrowing. C7-T1: Post surgical changes. No significant canal or foraminal narrowing. Procedure Note Yves Crook MD - 06/17/2022 DATE: 06/16/2022 2:25 PM INDICATION: Chronic neck pain. Prior cervical surgery. EXAMINATION: MRI of the cervical spine without contrast. TECHNIQUE: Multiplanar and multisequence MRI images of the cervical spinewere obtained without contrast. COMPARISON: Cervical CT 08/15/2020 FINDINGS: Straightening of the cervical lordosis. Slight retrolisthesis of C3 on C4and C4 on C5. Otherwise the cervical vertebral alignment, vertebral bodyheights, and facet alignment are maintained. There are post surgicalchanges of multilevel posterior cervical thoracic fusion extending from [id number], the caudal extent of which is incompletely imaged. No definiteabnormal signal seen in the cervical cord, though image quality issomewhat compromised by artifact. Multilevel degenerative changes areevident in the cervical spine with disc generation, endplate/uncovertebralosteophytes, mild ligamentum flavum thickening, and facet hypertrophynoted. Craniocervical junction and visualized posterior fossa contents areunremarkable. Imaged portions of the soft tissues reveal no definite acutefindings. C2-C3: Disc bulge. Mild ligamentum flavum thickening. Facet hypertrophy.Flattening of the ventral thecal sac with minimal canal stenosis. Nosignificant foraminal narrowing. C3-C4: Slight retrolisthesis. Disc bulge. Small uncovertebral osteophytes.Facet hypertrophy. Flattening of the ventral thecal sac withoutsignificant canal stenosis. Moderate left and mild narrowing. C4-C5: Slight retrolisthesis. Disc bulge. Uncovertebral osteophytes. Mildligamentum flavum thickening. Facet hypertrophy. Mild canal stenosis withpartial effacement of the ventral thecal sac. At least mild foraminalnarrowing. C5-C6: Partial ankylosis of the disc space. Post surgical changes.Endplate osteophytes. Facet hypertrophy. Flattening of the ventral thecalsac, with minimal canal stenosis. Minimal foraminal narrowing. C6-C7: Partial ankylosis of the disc space. Post surgical changes.Endplate osteophytes. Facet hypertrophy. Mild canal stenosis. Mildforaminal narrowing. C7-T1: Post surgical changes. No significant canal or foraminalnarrowing. IMPRESSION: 1. Postsurgical and multilevel degenerative changes in the cervical spine,as detailed above. 2. No definite cervical cord signal abnormality, though image quality issomewhat compromised by artifact. Ordered By: AMIE GIBSON Interpreted By: Yves Crook MD, 06/17/2022 2:44 PM Amie Gibson RN HOME [facility] MRI Final Result documented in this encounter Visit Diagnoses Diagnosis Cervicalgia documented in this encounter Care Teams Wire Spring Relay Adjuster Relationship Specialty Start Date End Date Blake Lindsey MD [address] [place] [address] PCP - General FAMILY PRACTICE 03/03/19 documented as of this encounter
--- OUTSIDE RECORDS SUMMARY | 2024-07-29 17:43 | XMS_ITS | Encounter Summary ---
Author Organization [facility] Address [address] [place] [address]. [place] [address] [place] [address] Care Team Providers Care Purchasing Manager Name Role Phone Blake Lindsey MD Primary Care Provider [phone] Encounter Details Date Type Department Care Team (Latest Contact Info) Description 12/22/2020 Travel Social History Tobacco Use Types Packs/Day [...] have Coronavirus / COVID-19? No / Unsure 12/22/2020 3:06 PM CDT documented as of this encounter Plan of Treatment Not on file documented as of this encounter Visit Diagnoses Not on filedocumented in this encounter Additional Health Concerns Infection Onset Date Last Indicated Resolved Time COVID-19 Rule Out 12/22/2020 12/22/2020 12/23/2020 1:01 PM CDT documented as of this encounter Care Teams Purchasing Manager Relationship Specialty Start Date End Date Blake Lindsey MD [address] [place] [address] PCP - General FAMILY PRACTICE 03/03/19 documented as of this encounter
--- OUTSIDE RECORDS SUMMARY | 2024-07-29 17:43 | XMS_ITS | Encounter Summary ---
Author Organization [facility] Address [address] [place] [address]. [place] [address] [place] [address] Care Team Providers Care Studio Set Up Worker Name Role Phone Blake Lindsey MD Primary Care Provider [phone] Reason for Referral * Imaging (Routine) - Closed Specialty Diagnoses / Procedures Referred By Contac t Referred To Contact RADIOLOGY Diagnoses Spinal stenosis, cervical region Procedures CT CERV SPINE WO CON Pierre Tompkins MD [address] [place] [address] Dr Mckeon [address] [place] [id number] Phone: tel: fax: Referral ID Status Reason Start Date Expiration Date Visits Re quested Visits Authorized [id number] Closed 10/20/2023 10/20/2024 1 1 Reason for Visit * Imaging (Routine) - Closed Specialty Diagnoses / Procedures Referred By Contac t Referred To Contact RADIOLOGY Diagnoses Spinal stenosis, cervical region Procedures CT CERV SPINE WO CON Pierre Tompkins MD [address] [place] [address] Dr Mckeon [address] [place] [id number] Phone: tel: fax: Referral ID Status Reason Start Date Expiration Date Visits Re quested Visits Authorized [id number] Closed 10/20/2023 10/20/2024 1 1 Encounter Details Date Type Department Care Team (Latest Contact Info) Description 11/06/2023 2:11 PM CDT - 11/06/2023 11:59 PM CDT Hospital Encounter [facility] [address] [place] [address] Pierre Tompkins MD [address] [facility] [address] Mckeon [address] [place] [id number] Discharge Disposition: Home or Self Care (Routine [...] on file Sexual Orientation Not on file documented as of this encounter Medications at Time of Discharge albuterol (2.5 MG/3ML) 0.083% nebulizer solution Take 3 mLs (2.5 mg total) by nebulization every 4 (four) hours as needed for Wheezing. 60 vial 0 albuterol sulfate HFA 108 (90 Base) MCG/ACT inhaler Inhale 2 puffs into the lungs every 4 (four) hours as needed for Wheezing or Shortness of breath (cough). 1 Inhaler 0 atorvastatin 10 MG tablet Take 10 mg by mouth nightly. 9 Cholecalciferol 50 MCG (2000 UT) Cap Take 1 capsule by mouth daily. 2 ferrous sulfate, 65 mg elemental, (FEROSUL) 325 (65 FE) MG tablet TAKE 1 TABLET BY MOUTH ONCE DAILY, TAKE AT TGHE SAME TIME YOUR VITAMIN TABLET 2 fluticasone propionate (FLONASE) 50 MCG/ACT nasal spray 1 spray by Each Nostril route 2 (two) times a day. 16 g 0 furosemide 20 MG tablet Take 20 mg by mouth daily. 9 lubiprostone (AMITIZA) 24 MCG capsule Take 1 capsule (24 mcg total) by mouth. naloxegol oxalate (MOVANTIK) 25 MG tablet 3 omeprazole 20 MG capsule Take 20 mg by mouth daily. 3 9 oxyCODONE ER (XTAMPZA ER) 9 MG Capsule Extended Release 12 hour Abuse-Deterrent 12 hr abuse-deterrent capsule QUEtiapine 100 MG tablet Take 100 mg by mouth nightly at bedtime. 0 QUEtiapine 50 MG tablet Take 50 mg by mouth nightly at bedtime. 0 9 rimegepant (NURTEC) 75 MG disintegrating tablet Take 1 tablet (75 mg total) by mouth. 2 spironolactone 25 MG tablet Take 25 mg by mouth daily. 0 SUMAtriptan 50 MG tablet Take 50 mg by mouth as needed. 0 9 traZODone 50 MG tablet 0 documented as of this encounter Plan of Treatment Not on file documented as of this encounter Procedures Procedure Name Priority Date/Time Associated Diagnosis Comments CT CERV SPINE WO CON Routine 11/06/2023 2:30 PM CDT Spinal stenosis, cervical region documented in this encounter Results * CT CERV SPINE WO CON (11/06/2023 2:30 PM CDT) Anatomical Region Laterality Modality Spine Computed Tomogra phy 11/09/2023 6:47 PM CDT Impressions 11/09/2023 6:53 PM CDT IMPRESSION: 1. ??No acute osseous abnormalities identified. 2. ??No evidence of hardware loosening or breakage. 3. ??Multilevel degenerative disc disease and facet arthropathy. 4. ??Reversal of the normal cervical lordosis. Referred By: PIERRE TOMPKINS Interpreted By: Manjinder Lopez DO, 11/09/2023 6:47 PM Narrative 11/09/2023 6:53 PM CDT EXAMINATION: CT CERV SPINE WO CON HISTORY: Generalized neck pain. ??Spinal stenosis. COMPARISON: CT cervical spine 08/15/2020 TECHNIQUE: Axial CT images of the cervical spine without the use of intravenous contrast. ??Sagittal and coronal reformatted image sets. A dose lowering technique was used for this procedure, which may include, but is not limited to, dose reduction technique, automated exposure control, the use of degenerative reconstruction, and ALARA/image gently techniques. FINDINGS: The craniocervical junction and dens are intact. ??The lateral pillars remain aligned. ??No evidence of acute fracture or dislocation. ??No vertebral body height loss. ??The posterior elements remain aligned. ??There is reversal of the normal cervical lordosis. ??This is most likely positional. ??This could also be degenerative and can be seen with muscle spasm. ??There is partially imaged cervicothoracic spinal fusion hardware. ??No evidence of hardware breakage or loosening. ??There is adjacent metallic streak artifact which limits detailed evaluation. ??There is multilevel degenerative disc disease and facet arthropathy throughout the cervical spine. ??No evidence of acute osseus impingement upon the spinal canal or neural foramina. ??There is grade 1 degenerative anterolisthesis of C3 on C4 and C4 on C5. ??There is no prevertebral soft tissue swelling. ??No acute-appearing paraspinous soft tissue abnormalities. ??The partially included neck soft tissues are negative for acute appearing abnormality. ??The partially included lung apices are clear. ?? Procedure Note Manjinder Lopez DO - 11/09/2023 EXAMINATION: CT CERV SPINE WO CON HISTORY: Generalized neck pain. Spinal stenosis. COMPARISON: CT cervical spine 08/15/2020 TECHNIQUE: Axial CT images of the cervical spine without the use of intravenouscontrast. Sagittal and coronal reformatted image sets. A dose lowering technique was used for this procedure, which may include,but is not limited to, dose reduction technique, automated exposurecontrol, the use of degenerative reconstruction, and ALARA/image gentlytechniques. FINDINGS: The craniocervical junction and dens are intact. The lateral pillarsremain aligned. No evidence of acute fracture or dislocation. Novertebral body height loss. The posterior elements remain aligned. Thereis reversal of the normal cervical lordosis. This is most likelypositional. This could also be degenerative and can be seen with musclespasm. There is partially imaged cervicothoracic spinal fusion hardware.No evidence of hardware breakage or loosening. There is adjacent metallicstreak artifact which limits detailed evaluation. There is multileveldegenerative disc disease and facet arthropathy throughout the cervicalspine. No evidence of acute osseus impingement upon the spinal canal orneural foramina. There is grade 1 degenerative anterolisthesis of C3 onC4 and C4 on C5. There is no prevertebral soft tissue swelling. Noacute-appearing paraspinous soft tissue abnormalities. The partiallyincluded neck soft tissues are negative for acute appearing abnormality.The partially included lung apices are clear. IMPRESSION: 1. No acute osseous abnormalities identified. 2. No evidence of hardware loosening or breakage. 3. Multilevel degenerative disc disease and facet arthropathy. 4. Reversal of the normal cervical lordosis. Referred By: PIERRE TOMPKINS Interpreted By: Manjinder Lopez DO, 11/09/2023 6:47 PM Pierre Tompkins MD CT Final Resu lt documented in this encounter Visit Diagnoses Diagnosis Spinal stenosis, cervical region documented in this encounter Care Teams Studio Set Up Worker Relationship Specialty Start Date End Date Blake Lindsey MD [address] [place] [address] PCP - General FAMILY PRACTICE 03/03/19 documented as of this encounter
--- OUTSIDE RECORDS SUMMARY | 2024-07-29 17:43 | XMS_ITS | Encounter Summary ---
Author Organization [facility] Address [address] [place] [address]. [place] [address] [place] [address] Care Team Providers Care Industrial Chemicals Supervisor Name Role Phone Blake Lindsey MD Primary Care Provider [phone] Encounter Details Date Type Department Care Team (Late st Contact Info) Description 01/02/2021 2:55 PM CDT - 01/02/2021 11:59 PM CDT Hospital Encounter [facility] [address] [place] [address] Blake Lindsey MD [address] [place], [place] [id number] Discharge Disposition: Home or Self Care (Routine [...] PM CDT documented as of this encounter Medications [...] Take 10 mg by mouth nightly. 03/02/2019 fluticasone propionate (FLONASE) 50 MCG/ACT nasal spray 1 spray by Each Nostril route 2 (two) times a day. 16 g 04/09/2020 furosemide 20 MG tablet Take 20 mg by mouth daily. 02/23/2019 omeprazole 20 MG capsule Take 20 mg by mouth daily. 3 01/26/2019 QUEtiapine 100 MG tablet Take 100 mg by mouth nightly at bedtime. 01/17/2020 QUEtiapine 50 MG tablet Take 50 mg by mouth nightly at bedtime. 0 02/07/2019 spironolactone 25 MG tablet Take 25 mg by mouth daily. 04/01/2020 SUMAtriptan 50 MG tablet Take 50 mg by mouth as needed. 0 02/16/2019 traZODone 50 MG tablet 03/30/2020 azithromycin 250 MG tablet Take 2 tablets by mouth on day one then 1 daily for four days. 6 tablet 12/22/2020 1 HYDROcodone-acet aminophen 10-325 MG tablet Take 1 tablet by mouth every 6 (six) hours as needed for Pain. 1 lamotrigine 100 MG tablet Take 100 mg by mouth daily. 01/04/2019 3 documented as of this encounter Plan of Treatment Not on file documented as of this encounter Procedures Procedure Name Priority Date/Time Associated Diagnosis Comments XR CHEST PA+LAT Routine 01/02/2021 3:08 PM CDT Pneumonia, unspecified organism documented in this encounter Results * XR CHEST PA+LAT (01/02/2021 3:08 PM CDT) Anatomical Region Laterality Modality Chest Radiographic Jonna ging 01/03/2021 7:01 AM CDT Impressions 01/03/2021 7:01 AM CDT IMPRESSION: Stable chest, no acute findings. Referred By: KI GILL Interpreted By: Blake Hills MD, 01/03/2021 7:01 AM Narrative 01/03/2021 7:01 AM CDT 2 VIEWS OF THE CHEST Clinical history: Shortness of breath Comparison: December 22, 2020 2 views of the chest demonstrate The cardiac silhouette, mediastinal contours, and pulmonary vessels appear normal. ??The Lungs are clear. No consolidations or effusions are seen. Procedure Note Blake Hills MD - 01/03/2021 2 VIEWS OF THE CHEST Clinical history: Shortness of breath Comparison: December 22, 2020 2 views of the chest demonstrate The cardiac silhouette, mediastinalcontours, and pulmonary vessels appear normal. The Lungs are clear. Noconsolidations or effusions are seen. IMPRESSION: Stable chest, no acute findings. Referred By: KI GILL Interpreted By: Blake Hills MD, 01/03/2021 7:01 AM Ki Gill [facility] Final Resu lt documented in this encounter Visit Diagnoses Diagnosis Pneumonia, unspecified organism documented in this encounter Care Teams Industrial Chemicals Supervisor Relationship Specialty Start Date End Date Blake Lindsey MD [address] [address] PCP - General FAMILY PRACTICE 03/03/19 documented as of this encounter
--- OUTSIDE RECORDS SUMMARY | 2024-07-29 17:43 | XMS_ITS | Encounter Summary ---
Author Organization [facility] Address [address] [place] [address]. [place] [address] [place] [address] Care Team Providers Care Lead Pl Sql Developer Name Role Phone Blake Lindsey MD Primary Care Provider [phone] Reason for Visit * Reason Comments Foot Injury LEFT Encounter Details Date Type Department Care Team (Latest Contact Info) Description 05/01/2021 12:29 PM CDT - 05/01/2021 1:17 PM CDT Hospital Encounter [facility] [address], [place] [address] Lina Rouse MD [address], [place] [address] Foot Injury (LEFT) Discharge Disposition: Home or Self Care (Routine [...] have Coronavirus / COVID-19? No / Unsure 05/01/2021 12:26 PM CDT documented as of this encounter Last Filed Vital Signs Vital Sign Reading Time Taken Comments Blood Pressure 112/72 05/01/2021 12:31 PM CDT Pulse 109 05/01/2021 12:31 PM CDT Temperature 36.4 ??C (97.6 ??F) 05/01/2021 12:31 PM C DT Respiratory Rate 18 05/01/2021 12:31 PM CDT Oxygen Saturation 94% 05/01/2021 12:31 PM CDT Inhaled Oxygen Concentration - - Weight 81.6 kg (180 lb) 05/01/2021 12:31 PM CDT Height 160 cm (5' 3 ) 05/01/2021 12:31 PM CDT Body Mass Index 31.89 05/01/2021 12:31 PM CDT documented in this encounter Discharge Instructions * Discharge Instructions* Lina Rouse MD - 05/01/2021 1:10 PM CDT Thank you for giving us the opportunity to care for you today. If at any point you are becoming more ill, your condition worsens or have concern, please call your doctor or return here. You are always welcome back. If you have any questions about this visit, concerns about your symptoms, questions about your medications or other concerns, please give us a call. Our practice is committed to providing you the exceptional care. ADDITIONAL DISCHARGE INSTRUCTIONS: --Please follow all the instructions that we have discussed or are provided here. Take all medications as directed. --Emergency Departments (ED) provide medical screening exams and initial stabilizing treatment of emergency medical conditions. Medicine is an inexact science and many conditions cannot be diagnosed or completely treated during a single ED visit. Your treating healthcare provider(s) today feel yourcondition has been stabilized so further care as an outpatient is reasonable. Emergency care does not substitute for complete, ongoing, or follow-up care by your primary care physician or as400 consultant.Please mention to your follow-up physician that you were in the emergency department and request that they review your labs and/or imaging to ensure all findings are followed up on. --Your medication list was reviewed prior to treatment, and at discharge, by the treating provider for the purpose of this outpatient visit only. Please review this entire medication list with your pharmacist, primary care physician, and specialist(s). It is your responsibility to share any new medication instructions you received this visit with your doctor(s). Although no medicine is without risk, your healthcare provider today feels reasonable decisions were made concerning starting new medications and stopping or changing the dosages of your usual medications until you receive follow-up care. Take medications only as directed. Many medications can cause drowsiness, especially those for pain, anxiety, muscle spasms, nausea, and allergies. DO NOT drive, drink alcohol, operate power machinery, or participate in potentially dangerous activities if taking medicines that make you tired. Chronic pain is best managed by pain specialists or primary care physicians, so narcotic refills are not routinely dispensed in the ED. DO NOT take multiple medications containing acetaminophen (Tylenol), such as many narcotic drug combinations and [id number] cold medicines. Again, it was a pleasure taking care of you. Lina Rouse MD * Attachments The following attachments cannot be sent through Care Everywhere. * Toe Injury Discharge Instructions (Portuguese) documented in this encounter Medications at Time [...] 01/04/2019 3 documented as of this encounter ED Notes * Lina Rouse MD - 05/01/2021 12:43 PM CDT Images from the original note were not included. [facility] NOTE Chief Complaint Chief Complaint Patient presents with ??? Foot Injury LEFT History of Present Illness This note was prepared using a GetMy[employer]oat dictation device. Please excuse any errors or substitutions. Also this patient was cared for in the middle of an unusual surge in emergency/urgent care department census directly related to the SARS-2/COVID-19 pandemic. As a result, some of the time indices noted below may be inaccurate. 50-year-old female presenting with left foot, fifth digit pain that started yesterday after she kicked the base of a wooden plank stand. States that the pinky toe was actually extending laterally. Patient reports that she pushed it back in place. She has been experiencing pain, and decreased sensation since then. Reports that the pain is worse when she is ambulating. She denies any instances where she was unable to ambulate. She denies any radiation of the pain. She denies any bleeding. Does report some bruising and swelling, which has improved since yesterday. Patient has been taking her chronic pain medications with minimal alleviation of her symptoms. Medical History ALLERGIES: Allergies Allergen Reactions ??? Penicillins Rash and Unknown ??? Amoxicillin Rash ??? Codeine Other (see comment) Passes out, Passes out ??? Epinephrine Other (see comment) When injected in mouth for dental procedures, makes extremities go numb MEDICATIONS: Prior to Admission medications Medication Sig Start Date End Date Taking? Authorizing Provider oxyCODONE ER (XTAMPZA ER) 9 MG Capsule Extended Release 12 hour Abuse-Deterrent 12 hr abuse-deterrent capsule Yes Doc Abstract albuterol (2.5 MG/3ML) 0.083% nebulizer solution Take 3 mLs (2.5 mg total) by nebulization every 4 (four) hours as needed for Wheezing. 04/09/20 Annabella F Lucio DIRECT MARKETING COORDINATOR-BC albuterol sulfate HFA 108 (90 Base) MCG/ACT inhaler Inhale 2 puffs into the lungs every 4 (four) hours as needed for Wheezing or Shortness of breath (cough). 04/09/20 Annabella F Lucio DIRECT MARKETING COORDINATOR-BC atorvastatin 10 MG tablet Take 10 mg by mouth nightly. 03/02/19 Doc Abstract fluticasone propionate (FLONASE) 50 MCG/ACT nasal spray 1 spray by Each Nostril route 2 (two) timesa day. 04/09/20 SINCERE DavalosP-BC furosemide 20 MG tablet Take 20 mg by mouth daily. 02/23/19 Doc Abstract lamotrigine 100 MG tablet Take 100 mg by mouth daily. 01/04/19 Doc Abstract omeprazole 20 MG capsule Take 20 mg by mouth daily. 01/26/19 Doc Abstract QUEtiapine 100 MG tablet Take 100 mg by mouth nightly at bedtime. 01/17/20 Doc Abstract QUEtiapine 50 MG tablet Take 50 mg by mouth nightly at bedtime. 02/07/19 Doc Abstract spironolactone 25 MG tablet Take 25 mg by mouth daily. 04/01/20 Doc Abstract SUMAtriptan 50 MG tablet Take 50 mg by mouth as needed. 02/16/19 Doc Abstract traZODone 50 MG tablet 03/30/20 Doc Abstract PAST MEDICAL HISTORY: Past Medical History: Diagnosis Date ??? Arthritis ??? Asthma ??? COPD (chronic obstructive pulmonary disease) (CMS/HCC) ??? Hodgkin's disease (CMS/HCC) ??? PTSD (post-traumatic stress disorder) PAST SURGICAL HISTORY: Past Surgical History: Procedure Laterality Date ??? BACK SURGERY spinal fusion ??? FRACTURE SURGERY ??? KNEE SURGERY Bilateral ??? TOOTH EXTRACTION FAMILY HISTORY: Family History Problem Relation Name Age of Onset ??? Hypertension Mother ??? Diabetes Mother ??? Heart Disease Mother ??? Cancer Father ??? Heart Disease Father ??? Hypertension Father SOCIAL HISTORY: Social History Tobacco Use ??? Smoking status: Former Smoker Quit date: 1997 Years since quittin.7 ??? Smokeless tobacco: Never Used Substance Use Topics ??? Alcohol use: Yes Alcohol/week: 1.7 standard drinks Types: 1 Shots of liquor per week ??? Drug use: No Review of Systems Review of Systems Constitutional: Negative for chills, diaphoresis, fatigue and fever. HENT: Negative for trouble swallowing. Respiratory: Negative for shortness of breath. Cardiovascular: Negative for chest pain. Gastrointestinal: Negative for abdominal pain. Musculoskeletal: Positive for arthralgias, gait problem and joint swelling. Negative for myalgias. Skin: Positive for color change. Negative for rash. Neurological: Negative for weakness and numbness. Physical Exam Filed Vitals: 05/01/21 1231 BP: 112/72 Pulse: 109 Resp: 18 Temp: 97.6 ??F (36.4 ??C) TempSrc: Temporal SpO2: 94% Weight: 81.6 kg (180 lb) Height: 5' 3 (1.6 m) Physical Exam Vitals and nursing note reviewed. Constitutional: General: She is not in acute distress. Appearance: Normal appearance. She is obese. She is not ill-appearing, toxic- appearing or diaphoretic. Comments: Patient sitting on the exam table, able to speak in full sentences without difficulty. Patient wearing nasal cannula with portable 1.5 L of O2. HENT: Head: Normocephalic and atraumatic. Mouth/Throat: Mouth: Mucous membranes are moist. Pharynx: Oropharynx is clear. Eyes: Extraocular Movements: Extraocular movements intact. Conjunctiva/sclera: Conjunctivae normal. Cardiovascular: Rate and Rhythm: Normal rate and regular rhythm. Pulses: Dorsalis pedis pulses are 3+ on the right side and 3+ on the left side. Heart sounds: Normal heart sounds. Pulmonary: Effort: Pulmonary effort is normal. No respiratory distress. Breath sounds: Normal breath sounds. No stridor. No wheezing or rhonchi. Abdominal: General: Bowel sounds are normal. There is no distension. Palpations: Abdomen is soft. Tenderness: There is no abdominal tenderness. There is no guarding. Musculoskeletal: Cervical back: Normal range of motion and neck supple. Right ankle: Normal. Left ankle: Normal. Right foot: Normal. Left foot: Normal range of motion and normal capillary refill. Swelling, tenderness and bony tenderness present. No foot drop. Normal pulse. Feet: Skin: General: Skin is warm and dry. Capillary Refill: Capillary refill takes less than 2 seconds. Findings: Bruising (Lateral aspect of the left foot) present. Neurological: Mental Status: She is alert and oriented to person, place, and time. Mental status is at baseline. Gait: Gait abnormal (antalgic). Psychiatric: Mood and Affect: Mood normal. Behavior: Behavior normal. Diagnostic Studies / Procedures ELECTROCARDIOGRAMS: No results found for this visit on 05/01/21. LABORATORY STUDIES: No results found for this visit on 05/01/21. IMAGING STUDIES XR FOOT LT 3V Final Result by User, [id number] (05/01 1302) Procedure(s): XR FOOT LT 3V Date of service: 05/01/2021 12:40 PM Provided clinical information: 50 years, Female, HIT ON A PLANT STAND Procedure and materials: AP, lateral and oblique views Comparison studies: None. Observations: Healed fifth metatarsal fracture is present. Slight cortical irregularity is present in the diaphysis of the proximal phalanx of the fifth digit. This could relate to a nutrient vessel versus a minimally displaced fracture. Clinical correlation is recommended. Plantar enthesopathy is present. The first and second metatarsals are intact. No fracture, dislocation or acute bony abnormality of the other bones of the foot. IMPRESSION: Slight cortical irregularity about the diaphysis of the proximal phalanx of the fifth digit. This could be a nutrient vessel versus a minimally displaced fracture. Clinical correlation. Referred By: Interpreted By: Tim Bland MD, 05/01/2021 12:58 PM ED Course / Medical Decision Making MDM Number of Diagnoses or Management Options Foot injury, left, initial encounter Left foot pain Toe fracture, left Diagnosis management comments: Advised patient to follow-up with podiatry for further evaluation and management. Patient does have a walker at home that she would prefer to use versus crutches. States that she is unable to walk with crutches secondary to her spinal history. Plan of care discussed with patient. ??Patient agreeable with plan of care. ??I have discussed today's findings with the patient and provided information regarding the likely diagnosis. I believe at this time that the patient has no medical emergency and is appropriate for outpatient management. The patient has been given information regarding their treatment, follow up and concerning symptoms for which they should seek urgent or emergent attention; all questions were answered. ??I have expressed the the importance of seeking attention should there be any new, or worsening symptoms or persistence of their condition. The patient is stable at discharge and has verbalized understanding of these instructions.?? Amount and/or Complexity of Data Reviewed Tests in the radiology section of CPT??: ordered and reviewed Risk of Complications, Morbidity, and/or Mortality Presenting problems: low Diagnostic procedures: low Management options: low Patient Progress Patient progress: stable ED Course as of May 01 1314 Kathleen May 01, 2021 1302 Imaging results reviewed and discussed with the patient. Patient does report a previous history of fracture to this toe. Slight cortical irregularity about the diaphysis of the proximal phalanx of the fifth digit. This could be a nutrient vessel versus a minimally displaced fracture. [CC] 1310 Pt provided with a disc containing a copy of her images and results. [CC] 1312 Patient reports that she is unable to use crutches secondary to a spinal fusion, states that it causes severe pain. She does have a walker at home that she states she can use. Patient takes oxycodone for chronic pain. Last took this morning at around 930. [CC] 1312 Left fourth and fifth toes karla taped, postop shoe was applied, patient neurovascularly intact after placement. [CC] ED Course User Index [CC] Lina Rouse MD Medications - No data to display Clinical Impression Foot injury, left, initial encounter (Primary) Left foot pain Toe fracture, left Current Discharge Medication List Disposition: Discharge Follow-Up: Blake Lindsey MD [address] [place] [id number] Schedule an appointment as soon as possible for a visit [facility] [address] [address] [facility] [address] [facility] [address] Schedule an appointment as soon as possible for a visit LINA ROUSE MD 05/01/2021 Lina Rouse MD 05/01/21 1314 * Danita Dupree RN - 05/01/2021 12:34 PM CDT PT TO UC WITH C/O LEFT FOOT SWELLING, BRUISING, AND PAIN AFTER HITTING FOOT AGAINST A PLANT STAND LAST NIGHT. PT IS BEARING WEIGHT, WITH LIMP. OFFERED WHEELCHAIR X2, PT DECLINED BOTH TIMES. documented in this encounter Plan of Treatment Not on file documented as of this encounter Procedures Procedure Name Priority Date/Time Associated Diagnosis Comments XR FOOT LT 3V STAT 05/01/2021 12:52 PM CDT documented in this encounter Results * XR FOOT LT 3V (05/01/2021 12:52 PM CDT) Anatomical Region Laterality Modality Foot Radiographic Jonna ging 05/01/2021 12:5 8 PM CDT Impressions 05/01/2021 1:01 PM CDT IMPRESSION: Slight cortical irregularity about the diaphysis of the proximal phalanx of the fifth digit. ??This could be a nutrient vessel versus a minimally displaced fracture. ??Clinical correlation. Referred By: ?? Interpreted By: Tim Bland MD, 05/01/2021 12:58 PM Narrative 05/01/2021 1:01 PM CDT Procedure(s): XR FOOT LT 3V Date of service: 05/01/2021 12:40 PM Provided clinical information: 50 years, Female, HIT ON A PLANT STAND Procedure and materials: AP, lateral and oblique views Comparison studies: None. Observations: ?? Healed fifth metatarsal fracture is present. ??Slight cortical irregularity is present in the diaphysis of the proximal phalanx of the fifth digit. ??This could relate to a nutrient vessel versus a minimally displaced fracture. ??Clinical correlation is recommended. Plantar enthesopathy is present. The first and second metatarsals are intact. ??No fracture, dislocation or acute bony abnormality of the other bones of the foot. Procedure Note Tim Bland MD - 05/01/2021 Procedure(s): XR FOOT LT 3V Date of service: 05/01/2021 12:40 PM Provided clinical information: 50 years, Female, HIT ON A PLANT STAND Procedure and materials: AP, lateral and oblique views Comparison studies: None. Observations: Healed fifth metatarsal fracture is present. Slight cortical irregularityis present in the diaphysis of the proximal phalanx of the fifth digit.This could relate to a nutrient vessel versus a minimally displacedfracture. Clinical correlation is recommended. Plantar enthesopathy is present. The first and second metatarsals are intact. No fracture, dislocation oracute bony abnormality of the other bones of the foot. IMPRESSION: Slight cortical irregularity about the diaphysis of the proximal phalanxof the fifth digit. This could be a nutrient vessel versus a minimallydisplaced fracture. Clinical correlation. Referred By: Interpreted By: Tim Bland MD, 05/01/2021 12:58 PM Lina Rouse MD GENERAL IMAGING Final Result documented in this encounter Visit Diagnoses Diagnosis Foot injury, left, initial encounter- Primary Left foot pain Pain in limb Toe fracture, left Closed fracture of one or more phalanges of foot documented in this encounter Care Teams Lead Pl Sql Developer Relationship Specialty Start Date End Date Blake Lindsey MD [address] [place] [address] PCP - General FAMILY PRACTICE 03/03/19 documented as of this encounter
--- OUTSIDE RECORDS SUMMARY | 2024-07-29 17:43 | XMS_ITS | Encounter Summary ---
Author Organization [facility] Address [address] [place] [address]. [place] [address] [place] [address] Care Team Providers Care Senior Games Technician Name Role Phone Blake Lindsey MD Primary Care Provider [phone] Encounter Details Date Type Department Care Team (Latest Contact Info) Description 02/04/2023 Travel Social History Tobacco Use Types Packs/Day [...] on file documented as of this encounter Plan of Treatment Not on file documented as of this encounter Visit Diagnoses Not on filedocumented in this encounter Care Teams Senior Games Technician Relationship Specialty Start Date End Date Blake Lindsey MD [address] [place] [address] PCP - General FAMILY PRACTICE 03/03/19 documented as of this encounter
--- OUTSIDE RECORDS SUMMARY | 2024-07-29 17:43 | XMS_ITS | Clinical Summary ---
Author Organization [facility] Address [address] [place] [address]. [place] [address] [place] [address] Care Team Providers Care Verification Engineer Name Role Phone Blake Lindsey MD Primary Care Provider Allergies Active Allergy Reactions Criticality Noted Date Comments Amoxicillin Rash Low 02/19/2019 Codeine Other (see comment) Low 11/03/2012 Passes out, Passes out Epinephrine Other (see comment) Low 11/03/2012 When injected in mouth for dental procedures, makes extremities go numb Penicillins Rash,Unknown Medium 05/25/2012 Medications atorvastatin 10 MG tablet Take 10 mg by mouth nightly. 03/02/20 19 Active QUEtiapine 50 MG tablet Take 50 mg by mouth nightly at bedtime. 0 02/08/20 19 Active furosemide 20 MG tablet Take 20 mg by mouth daily. 02/24/20 19 Active SUMAtriptan 50 MG tablet Take 50 mg by mouth as needed. 0 02/17/20 19 Active omeprazole 20 MG capsule Take 20 mg by mouth daily. 3 01/27/20 19 Active spironolactone 25 MG tablet Take 25 mg by mouth daily. 04/01/20 20 Active QUEtiapine 100 MG tablet Take 100 mg by mouth nightly at bedtime. 01/17/20 20 Active traZODone 50 MG tablet 03/30/20 20 Active albuterol sulfate HFA 108 (90 Base) MCG/ACT inhaler Inhale 2 puffs into the lungs every 4 (four) hours as needed for Wheezing or Shortness of breath (cough). 1 Inhaler 04/09/20 Active albuterol (2.5 MG/3ML) 0.083% nebulizer solution Take 3 mLs (2.5 mg total) by nebulization every 4 (four) hours as needed for Wheezing. 60 vial 04/09/20 Active fluticasone propionate (FLONASE) 50 MCG/ACT nasal spray 1 spray by Each Nostril route 2 (two) times a day. 16 g 04/09/20 20 Active oxyCODONE ER (XTAMPZA ER) 9 MG Capsule Extended Release 12 hour Abuse-Deterrent 12 hr abuse-deterrent capsule Active Cholecalciferol 50 MCG (1999 UT) Cap Take 1 capsule by mouth daily. 07/07/20 22 Active ferrous sulfate, 65 mg elemental, (FEROSUL) 325 (65 FE) MG tablet TAKE 1 TABLET BY MOUTH ONCE DAILY, TAKE AT TGHE SAME TIME YOUR VITAMIN TABLET 04/08/20 22 Active lubiprostone (AMITIZA) 24 MCG capsule Take 1 capsule (24 mcg total) by mouth. Active naloxegol oxalate (MOVANTIK) 25 MG tablet 09/09/19 23 Active rimegepant (NURTEC) 75 MG disintegrating tablet Take 1 tablet (75 mg total) by mouth. 07/14/20 22 Active Immunizations Name Administration Dates Next Due Tdap (Boostrix) 02/04/2023 Family History Medical History Relation Comments Cancer Father Heart Disease Father Hypertension Father Diabetes Mother Heart Disease Mother Hypertension Mother Relation Status Comments Father Mother Social History Tobacco Use Types Packs/Day Years [...] on file Sexual Orientation Not on file Last Filed Vital Signs Vital Sign Reading Time Taken Comments Blood Pressure 128/83 02/04/2023 2:47 PM CDT Pulse 91 02/04/2023 2:47 PM CDT Temperature 36.9 ??C (98.5 ??F) 02/04/2023 2:47 PM CD T Respiratory Rate 18 02/04/2023 2:47 PM CDT Oxygen Saturation 100% 02/04/2023 2:47 PM CDT Inhaled Oxygen Concentration - - Weight 81.6 kg (180 lb) 02/04/2023 2:47 PM CDT Height 160 cm (5' 3 ) 02/04/2023 2:47 PM CDT Body Mass Index 31.89 02/04/2023 2:47 PM CDT Plan of Treatment Health Maintenance Due Date Last Done Comments Cervical Cancer Screening Pap Smear (Age 30 to 64) Every 3 Years 1968 Colorectal Cancer Screening Colonoscopy (10 Years) 1968 Annual Physical 11/23/1971 Hepatitis C 1986 Hepatitis B Vaccines (1 of 3 - 19+ 3-dose series) 11/23/1987 Cervical Cancer Screening Pap with HPV Testing (Age 30 to 64) Every 5 Years 1998 Cervical Cancer Screening with HPV 1998 Mammogram Screening 2008 Zoster Vaccines (1 of 2) 2018 COVID-19 Vaccine ( - 2023- season) 2024 04/30/2021, 03/31/2021 Influenza Adult (#1) 2024 07/08/2021, 04/05/2019, 04/02/2019, Additional history exists DTaP, Tdap and Td Vaccines (2 - Td or Tdap) 02/04/2033 02/04/2023 Pneumococcal Vaccine: Pediatrics (0 to 5 Years) and At-Risk Patients (6 to 64 Years) Aged Out 07/08/2021, 10/30/2015, 08/24/2013 No longer eligible based on patient's age to complete this topic Meningococcal Vaccine Aged Out No gabriela karan eligible based on patient's age to complete this topic RSV Immunizations Under 20 Months Aged Out No longer eligible based on patient's age to complete this topic Insurance MEDICAID Care Teams Verification Engineer Relationship Specialty Start Date End Date Blake Lindsey MD [address] [place], [place] [phone] PCP - General FAMILY PRACTICE 03/03/19
--- OUTSIDE RECORDS SUMMARY | 2024-07-29 17:43 | XMS_ITS | Encounter Summary ---
Author Organization [facility] Address [address] [place] [address]. [place] [address] [place] [address] Care Team Providers Care Garden Tractor Mechanic Name Role Phone Blake Lindsey MD Primary Care Provider [phone] Encounter Details Date Type Department Care Team (Latest Contact Info) Description 06/16/2022 Travel Social History Tobacco Use Types Packs/Day [...] Coronavirus/COVID-19? No / Unsure 06/16/2022 1:43 PM CLOSING MACHINE OPERATOR documented as of this encounter Plan of Treatment Not on file documented as of this encounter Visit Diagnoses Not on filedocumented in this encounter Care Teams Garden Tractor Mechanic Relationship Specialty Start Date End Date Blake Lindsey MD [address] [place] [address] PCP - General FAMILY PRACTICE 03/03/19 documented as of this encounter
--- OUTSIDE RECORDS SUMMARY | 2024-07-29 17:43 | XMS_ITS | Encounter Summary ---
Author Organization [facility] Address [address] [place] [address]. [place] [address] [place] [address] Care Team Providers Care Tree Topper Name Role Phone Blake Lindsey MD Primary Care Provider Encounter Details Date Type Department Care Team (Latest Contact Info) Description 05/01/2021 Travel Social History Tobacco Use Types Packs/Day [...] on filedocumented in this encounter Care Teams Tree Topper Relationship Specialty Start Date End Date Blake Lindsey MD [address] [place] [address] PCP - General FAMILY PRACTICE 03/03/19 documented as of this encounter
--- OUTSIDE RECORDS SUMMARY | 2024-07-29 17:43 | XMS_ITS | Encounter Summary ---
Author Organization [facility] Address [address] [place] [address]. [place] [address] [place] [address] Care Team Providers Care Rn Radiation Name Role Phone Radu Lindsey MD Primary Care Provider [phone] Reason for Visit * Reason Comments Wound Encounter Details Date Type Department Care Team (Latest Contact Info) Description 02/04/2023 2:41 PM CDT - 02/04/2023 3:49 PM CDT Hospital Encounter [address] [id number] Sisi Pinon, DO [address] [place] [id number] Wound Discharge Disposition: Home or Self Care (Routine [...] on file documented as of this encounter Last Filed [...] Mass Index 31.89 02/04/2023 2:47 PM CDT documented in this encounter Discharge Instructions * Discharge Instructions* Sisi Pinon DO - 02/04/2023 3:44 PM CDT Please keep wound clean and dry Wash with soap and water as normal Follow up with PCP as needed Return for worsening pain, fevers, redness, or swelling documented in this encounter Medications at Time [...] by mouth nightly. 9 Cholecalciferol 50 MCG (1999 UT) Cap Take [...] tablet 0 documented as of this encounter ED Notes * Sisi Pinon DO - 02/04/2023 2:51 PM CDT [facility] Urgent Care- [place], [place] HISTORICAL INFORMATION Primary Care Doctor: RADU LINDSEY MD Patient information was obtained primarily from the patient, nursing notes. History/Exam limitations: None Provider at Bedside Date/Time Event User Comments 02/04/23 5562 Provider at Bedside Assessing Patient SISI PINON -- CHIEF COMPLAINT Wound Chief Complaint Patient presents with Wound HPI Lakeisha Alejandra is a 52-year-old female who presents with injury to the R index finger, sustained about one week prior. She reports she was picking up a broken mirror when she unfortunately experienced mirror shards in the finger. She was able to remove all significant shards and super glue the flap shut, but continues to have pain and tenderness. Notes the super glue she's using peels offafter 1-1.5 days and the flap is still fairly deep. No other injury. ROS as per HPI PAST MEDICAL HISTORY Past Medical History: Diagnosis Date Arthritis Asthma COPD (chronic obstructive pulmonary disease) (CMS/HCC) Hodgkin's disease (CMS/HCC) PTSD (post-traumatic stress disorder) SURGICAL HISTORY Past Surgical History: Procedure Laterality Date BACK SURGERY spinal fusion FRACTURE SURGERY KNEE SURGERY Bilateral TOOTH EXTRACTION CURRENT MEDICATIONS No current facility-administered medications for this encounter. Current Outpatient Medications: Cholecalciferol 50 MCG (1999 UT) Cap, Take 1 capsule by mouth daily., Disp: , Rfl: ferrous sulfate, 65 mg elemental, (FEROSUL) 325 (65 FE) MG tablet, TAKE 1 TABLET BY MOUTH ONCE DAILY, TAKE AT TGHE SAME TIME YOUR VITAMIN TABLET, Disp: , Rfl: naloxegol oxalate (MOVANTIK) 25 MG tablet, , Disp: , Rfl: rimegepant (NURTEC) 75 MG disintegrating tablet, Take 1 tablet (75 mg total) by mouth., Disp: , Rfl: albuterol (2.5 MG/3ML) 0.083% nebulizer solution, Take 3 mLs (2.5 mg total) by nebulization every 4(four) hours as needed for Wheezing., Disp: 60 vial, Rfl: 0 albuterol sulfate HFA 108 (90 Base) MCG/ACT inhaler, Inhale 2 puffs into the lungs every 4 (four) hours as needed for Wheezing or Shortness of breath (cough)., Disp: 1 Inhaler, Rfl: 0 atorvastatin 10 MG tablet, Take 10 mg by mouth nightly., Disp: , Rfl: fluticasone propionate (FLONASE) 50 MCG/ACT nasal spray, 1 spray by Each Nostril route 2 (two) times a day., Disp: 16 g, Rfl: 0 furosemide 20 MG tablet, Take 20 mg by mouth daily., Disp: , Rfl: lubiprostone (AMITIZA) 24 MCG capsule, Take 1 capsule (24 mcg total) by mouth., Disp: , Rfl: omeprazole 20 MG capsule, Take 20 mg by mouth daily., Disp: , Rfl: 3 oxyCODONE ER (XTAMPZA ER) 9 MG Capsule Extended Release 12 hour Abuse-Deterrent 12 hr abuse-deterrent capsule, , Disp: , Rfl: QUEtiapine 100 MG tablet, Take 100 mg by mouth nightly at bedtime., Disp: , Rfl: QUEtiapine 50 MG tablet, Take 50 mg by mouth nightly at bedtime., Disp: , Rfl: 0 spironolactone 25 MG tablet, Take 25 mg by mouth daily., Disp: , Rfl: SUMAtriptan 50 MG tablet, Take 50 mg by mouth as needed., Disp: , Rfl: 0 traZODone 50 MG tablet, , Disp: , Rfl: ALLERGIES Review of patient's allergies indicates: Allergen Reactions Penicillins Rash and Unknown Amoxicillin Rash Codeine Other (see comment) Passes out, Passes out Epinephrine Other (see comment) When injected in mouth for dental procedures, makes extremities go numb FAMILY HISTORY Family History Problem Relation Name Age of Onset Hypertension Mother Diabetes Mother Heart Disease Mother Cancer Father Heart Disease Father Hypertension Father Family History of Heart Disease, Diabetes, Cancer Negative. SOCIAL HISTORY Social History Socioeconomic History Marital status: Tobacco Use Smoking status: Former Types: Cigarettes Quit date: 1997 Years since quittin.5 Smokeless tobacco: Never Vaping Use Vaping Use: Never used Substance and Sexual Activity Alcohol use: Yes Alcohol/week: 1.7 standard drinks Types: 1 Shots of liquor per week Drug use: No Review of Systems Constitutional: Negative for chills and fever. Respiratory: Negative for shortness of breath. Cardiovascular: Negative for chest pain. Gastrointestinal: Negative for nausea. Psychiatric/Behavioral: Negative for depression, substance abuse and suicidal ideas. Physical Exam VITAL SIGNS: Filed Vitals: 02/04/23 1447 BP: 128/83 Pulse: 91 Resp: 18 Temp: 98.5 ??F (36.9 ??C) TempSrc: Temporal SpO2: 100% Weight: 81.6 kg (180 lb) Height: 5' 3 (1.6 m) Physical Exam Vitals and nursing note reviewed. Constitutional: General: She is not in acute distress. Appearance: Normal appearance. She is normal weight. She is not ill-appearing. HENT: Head: Normocephalic and atraumatic. Eyes: Extraocular Movements: Extraocular movements intact. Cardiovascular: Rate and Rhythm: Normal rate and regular rhythm. Pulses: Normal pulses. Comments: R radial and ulnar pulses 2+ Pulmonary: Effort: Pulmonary effort is normal. No respiratory distress. Breath sounds: No stridor. Musculoskeletal: General: Signs of injury (small approximately 2cm skin flap along the pad of distal R second digit.Glue present. mildly TTP at the base of the laceration) present. No deformity. Normal range of motion. Cervical back: Normal range of motion and neck supple. Skin: General: Skin is warm and dry. Capillary Refill: Capillary refill takes less than 2 seconds. Neurological: General: No focal deficit present. Mental Status: She is alert. Mental status is at baseline. Sensory: No sensory deficit. Gait: Gait normal. Psychiatric: Mood and Affect: Mood normal. Behavior: Behavior normal. Thought Content: Thought content normal. Judgment: Judgment normal. EKG (interpreted by ED provider) No results found for this visit on 02/04/23. LABORATORY Labs Reviewed - No data to display RADIOLOGY XR SECOND FINGER RT 3V Final Result by User, [id number] (02/04 153) IMAGING STUDIES: XR SECOND FINGER RT 3V DATE: 02/04/2023 3:07 PM HISTORY: pain, possible retained foreign body 52-year-old female with reported laceration to the distal second digit/index finger 2 weeks ago on a mirror. Persistent pain. Clinical concern for foreign body. COMPARISON: None. DISCUSSION: AP, oblique, and lateral views of the right index finger. No apparent fracture, dislocation, or radiopaque foreign body. Soft tissue lucency at the fingertip best appreciated on oblique view consistent with the history of laceration. IMPRESSION: No appreciable fracture, dislocation, or radiopaque foreign body. Ordered By: SISI PINON Interpreted By: Chava Sanford, 02/04/2023 3:27 PM PROCEDURES Procedures MDM Pt with Hx of Hodgkin's disease, PTSD, arthritis, asthma, chronic constipation, GERD, migraines, insomnia, and iron deficiency presenting today with right second digit injury. No superimposed cellulitis. TDaP boosted. XR did not show appreciable foreign body and none palpated on exam. Reviewed image and agree w/ rad read - advised pt of results. Super glue had fallen off at time of re-examinationand showed nearly healed underlying tissue. Small flap of skin removed with sterile scissors, band aid placed. No further intervention indicated I have discussed today's findings with the patient and provided information regarding the likely diagnosis. The patient has been given information regarding their treatment, follow up and concerning symptoms for which they should seek urgent or emergent attention. I have expressed the the importance of seeking attention should there be any new, or worsening symptoms or persistence of their condition. The patient is stable at discharge and has verbalized understanding of these instructions. Impression/Disposition SNOMED CT(R) 1. Laceration of right index finger without foreign body without damage to nail, initial encounter LACERATION OF FINGER WITHOUT FOREIGN BODY Disposition: Discharge Medications Tdap (BOOSTRIX) injection 0.5 mL (0.5 mLs Intramuscular Given 02/04/23 1503) Current Discharge Medication List DO Sisi CHAHAL DO 02/04/23 6422 * Autumn Huang RN - 02/04/2023 2:42 PM CDT Pt to cc from home with c/o R second digit tenderness. 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 Pt reports spending about 10-15 minutes picking glass out of her finger. Pt reports the cut was really deep. Pt has been using a type of skin glue tokeep skin attached at home. Pt denies fevers at home. Last tetanus unknown. documented in this encounter Plan of Treatment Not on file documented as of this encounter Procedures Procedure Name Priority Date/Time Associated Diagnosis Comments XR SECOND FINGER RT 3V STAT 02/04/2023 3:14 PM CDT documented in this encounter Results * XR SECOND FINGER RT 3V (02/04/2023 3:14 PM CDT) Anatomical Region Laterality Modality Hand Radiographic Jonna ging 02/04/2023 3:27 PM CDT Impressions 02/04/2023 3:30 PM CDT IMPRESSION: No appreciable fracture, dislocation, or radiopaque foreign body. Ordered By: SISI PIONN Interpreted By: Chava Sanford, 02/04/2023 3:27 PM Narrative 02/04/2023 3:30 PM CDT IMAGING STUDIES: XR SECOND FINGER RT 3V ? DATE: ??02/04/2023 3:07 PM HISTORY: ??pain, possible retained foreign body ? 52-year-old female with reported laceration to the distal second digit/index finger 2 weeks ago on a mirror. Persistent pain. Clinical concern for foreign body. COMPARISON: ??None. DISCUSSION: AP, oblique, and lateral views of the right index finger. No apparent fracture, dislocation, or radiopaque foreign body. Soft tissue lucency at the fingertip best appreciated on oblique view consistent with the history of laceration. Procedure Note Chava Sanford MD - 02/04/2023 IMAGING STUDIES: XR SECOND FINGER RT 3VDATE: 02/04/2023 3:07 PM HISTORY: pain, possible retained foreign body 52-year-old female withreported laceration to the distal second digit/index finger 2 weeks ago milagros mirror. Persistent pain. Clinical concern for foreign body. COMPARISON: None. DISCUSSION: AP, oblique, and lateral views of the right index finger. No apparent fracture, dislocation, or radiopaque foreign body. Soft tissue lucency at the fingertip best appreciated on oblique viewconsistent with the history of laceration. IMPRESSION: No appreciable fracture, dislocation, or radiopaque foreign body. Ordered By: SISI PINON Interpreted By: Chava Sanford, 02/04/2023 3:27 PM Sisi Pinon DO GENERAL IMAGING Final Result documented in this encounter Visit Diagnoses Diagnosis Laceration of right index finger without foreign body without damage to nail, initial encounter- Primary documented in this encounter Care Teams Rn Radiation Relationship Specialty Start Date End Date Radu Lindsey MD [address] [address] PCP - General FAMILY PRACTICE 03/03/19 documented as of this encounter
--- OUTSIDE RECORDS SUMMARY | 2024-07-29 17:43 | XMS_ITS | Encounter Summary ---
Author Organization [facility] Address [address] [place] [address]. [place] [address] [place] [address] Care Team Providers Care Engineer Assistant Name Role Phone Blake Lindsey MD Primary Care Provider [phone] Reason for Referral * Imaging (Routine) - Closed Specialty Diagnoses / Procedures Referred By Contac t Referred To Contact RADIOLOGY Diagnoses Cervical radiculopathy Procedures MRI CERV SPINE WO CON Darrick Rogers DO [address] [place] [address] [place] [address] Phone: tel: fax: Referral ID Status Reason Start Date Expiration Date Visits Re quested Visits Authorized [id number] Closed MRI 12/17/2022 12/18/2023 1 1 Reason for Visit * Imaging (Routine) - Closed Specialty Diagnoses / Procedures Referred By Contac t Referred To Contact RADIOLOGY Diagnoses Cervical radiculopathy Procedures MRI CERV SPINE WO CON Darrick Rogers DO [address] [place] [address] [address]ELI [place] [address] [address] Phone: tel: fax: Referral ID Status Reason Start Date Expiration Date Visits Re quested Visits Authorized [id number] Closed MRI 12/17/2022 12/18/2023 1 1 Encounter Details Date Type Department Care Team (Latest Contact Info) Description 01/28/2023 3:00 PM CDT - 01/28/2023 11:59 PM CDT [facility] [address] [place] [address] Darrick Rogers, DO [address] [place] [address] Discharge Disposition: Home or Self Care (Routine [...] Take 20 mg by mouth daily. 9 naloxegol oxalate (MOVANTIK) 25 MG tablet 3 [...] 0 9 traZODone 50 MG tablet 0 lamotrigine 100 MG tablet Take 100 mg by mouth daily. 9 02/05/20 23 documented as of this encounter Plan of Treatment Not on file documented as of this encounter Procedures Procedure Name Priority Date/Time Associated Diagnosis Comments MRI CERV SPINE WO CON Routine 01/28/2023 3:41 PM CDT Cervical radiculopathy documented in this encounter Results * MRI CERV SPINE WO CON (01/28/2023 3:41 PM CDT) Anatomical Region Laterality Modality Spine Magnetic Resonan ce 02/01/2023 1:17 PM CDT Impressions 02/01/2023 1:26 PM CDT IMPRESSION: 1. Post surgical and multilevel degenerative changes in the cervical spine, as detailed above. 2. No definite cervical cord signal abnormality identified, though image quality is somewhat compromised by artifact. 3. Partially imaged left-sided parotid nodules or lymph nodes. Imaging appearance is nonspecific and definitive diagnosis would likely require tissue sampling. Ordered By: DARRICK ROGERS Interpreted By: Yves Crook MD, 02/01/2023 1:17 PM Narrative 02/01/2023 1:26 PM CDT DATE: 01/28/2023 3:24 PM INDICATION: Chronic neck pain. Prior cervical spine surgery. EXAMINATION: MRI of the cervical spine without contrast. TECHNIQUE: Multiplanar and multisequence MRI images of the cervical spine were obtained without contrast. COMPARISON: 06/16/2022 FINDINGS: Again seen are postsurgical changes of multilevel posterior cervical thoracic fusion from C5 inferiorly, the caudal extent of which is incompletely imaged. Slight retrolisthesis of C3 on C4 and C4 on C5. Straightening of the cervical lordosis. Otherwise the cervical vertebral alignment, vertebral body heights, and facet alignment are maintained. Multilevel degenerative changes are evident in the cervical spine with disc degeneration, endplate/uncovertebral osteophytes, ligamentum flavum thickening, and facet hypertrophy noted. Multilevel disc desiccation. No definite abnormal signal seen in the cervical cord, though image quality is somewhat compromised by artifact. Craniocervical junction and partially imaged posterior fossa contents appear unremarkable. Imaged portions of the neck soft tissues reveal no definite acute findings. Partially imaged T2 hyperintense nodules along the inferior aspect of the left parotid gland C2-C3: Disc bulge. Mildly mentum flavum thickening. Facet hypertrophy. Flattening of the thecal sac with minimal canal stenosis. Foramina patent. C3-C4: Slight retrolisthesis. Disc bulge. Small uncovertebral osteophytes. Left worse than right facet hypertrophy. Flattening of the thecal sac with minimal canal stenosis. Moderate to severe left and mild right foraminal narrowing. C4-C5: Retrolisthesis. Disc bulge. Uncovertebral osteophytes. Mild ligamentum flavum thickening. Facet hypertrophy. Superimposed central/right paracentral protrusion. At least mild canal stenosis with partial effacement of the ventral thecal sac. Encroachment and slight indentation of the right ventral cord. Mild to moderate right and mild left foraminal narrowing. C5-C6: Post surgical changes. Partial ankylosis of the disc space. Endplate osteophytes. Facet hypertrophy. Minimal canal stenosis. Minimal right foraminal narrowing. C6-C7: Post surgical changes. Partial ankylosis of the disc space. Endplate osteophytes. Facet hypertrophy. Minimal if any canal stenosis. Mild left foraminal narrowing. C7-T1: Post surgical changes. No significant canal or foraminal narrowing. Procedure Note Yves Crook MD - 02/01/2023 DATE: 01/28/2023 3:24 PM INDICATION: Chronic neck pain. Prior cervical spine surgery. EXAMINATION: MRI of the cervical spine without contrast. TECHNIQUE: Multiplanar and multisequence MRI images of the cervical spinewere obtained without contrast. COMPARISON: 06/16/2022 FINDINGS: Again seen are postsurgical changes of multilevel posterior cervicalthoracic fusion from C5 inferiorly, the caudal extent of which isincompletely imaged. Slight retrolisthesis of C3 on C4 and C4 on C5.Straightening of the cervical lordosis. Otherwise the cervical vertebralalignment, vertebral body heights, and facet alignment are maintained.Multilevel degenerative changes are evident in the cervical spine withdisc degeneration, endplate/uncovertebral osteophytes, ligamentum flavumthickening, and facet hypertrophy noted. Multilevel disc desiccation. Nodefinite abnormal signal seen in the cervical cord, though image qualityis somewhat compromised by artifact. Craniocervical junction and partially imaged posterior fossa contentsappear unremarkable. Imaged portions of the neck soft tissues reveal nodefinite acute findings. Partially imaged T2 hyperintense nodules alongthe inferior aspect of the left parotid gland C2-C3: Disc bulge. Mildly mentum flavum thickening. Facet hypertrophy.Flattening of the thecal sac with minimal canal stenosis. Foraminapatent. C3-C4: Slight retrolisthesis. Disc bulge. Small uncovertebral osteophytes.Left worse than right facet hypertrophy. Flattening of the thecal sac withminimal canal stenosis. Moderate to severe left and mild right foraminalnarrowing. C4-C5: Retrolisthesis. Disc bulge. Uncovertebral osteophytes. Mildligamentum flavum thickening. Facet hypertrophy. Superimposedcentral/right paracentral protrusion. At least mild canal stenosis withpartial effacement of the ventral thecal sac. Encroachment and slightindentation of the right ventral cord. Mild to moderate right and mildleft foraminal narrowing. C5-C6: Post surgical changes. Partial ankylosis of the disc space.Endplate osteophytes. Facet hypertrophy. Minimal canal stenosis. Minimalright foraminal narrowing. C6-C7: Post surgical changes. Partial ankylosis of the disc space.Endplate osteophytes. Facet hypertrophy. Minimal if any canal stenosis.Mild left foraminal narrowing. C7-T1: Post surgical changes. No significant canal or foraminalnarrowing. IMPRESSION: 1. Post surgical and multilevel degenerative changes in the cervicalspine, as detailed above. 2. No definite cervical cord signal abnormality identified, though imagequality is somewhat compromised by artifact. 3. Partially imaged left-sided parotid nodules or lymph nodes. Imagingappearance is nonspecific and definitive diagnosis would likely requiretissue sampling. Ordered By: DARRICK ROGERS Interpreted By: Yves Crook MD, 02/01/2023 1:17 PM us Darrick Rogers DO MRI Final Re sult documented in this encounter Visit Diagnoses Diagnosis Cervical radiculopathy Brachial neuritis or radiculitis nos documented in this encounter Care Teams Engineer Assistant Relationship Specialty Start Date End Date Blake Lindsey MD [address] [address] PCP - General FAMILY PRACTICE 03/03/19 documented as of this encounter
--- OUTSIDE RECORDS SUMMARY | 2024-07-29 17:43 | XMS_ITS | Encounter Summary ---
Author Organization [facility] Address [address] [place] [address]. [place] [address] [place] [address] Care Team Providers Care Section Plotter Operator Name Role Phone Blake Lindsey MD Primary Care Provider [phone] Encounter Details Date Type Department Care Team (Latest Contact Info) Description 01/28/2023 Travel Social History Tobacco Use Types Packs/Day [...] on filedocumented in this encounter Care Teams Section Plotter Operator Relationship Specialty Start Date End Date Blake Lindsey MD [address] [place] [address] PCP - General FAMILY PRACTICE 03/03/19 documented as of this encounter
--- OUTSIDE RECORDS SUMMARY | 2024-07-29 17:43 | XMS_ITS | Encounter Summary ---
Author Organization [facility] Address [address] [place] [address]. [place] [address] [place] [address] Care Team Providers Care Willow Machine Operator Name Role Phone Blake Lindsey MD Primary Care Provider [phone] Encounter Details Date Type Department Care Team (Latest Contact Info) Description 11/06/2023 Travel Social History Tobacco Use Types Packs/Day [...] on filedocumented in this encounter Care Teams Willow Machine Operator Relationship Specialty Start Date End Date Blake Lindsey MD [address] [place] [address] PCP - General FAMILY PRACTICE 03/03/19 documented as of this encounter
--- OUTSIDE RECORDS SUMMARY | 2024-07-29 17:44 | XMS_ITS | Encounter Summary ---
Author Organization [facility] Address [address] [place] [address]. [place] [address] [place] [address] Care Team Providers Care Drying Room Supervisor Name Role Phone Unavailable Primary Care Provider Unavailabl e Encounter Details Date Type Department Care Team (Latest Contact Info) Description 07/08/2012 Abstract [facility] Manasa Ibarra MD Social History Tobacco Use Types Packs/Day Years Used Date Smoking Tobacco: Never Assessed Comments Unknown Sex and Gender Information Value Date Recorded Sex Assigned at Not on file Legal Sex Female 3:40 AM CDT Gender Identity Not on file Sexual Orientation Not on file documented as of this encounter Plan of Treatment Not on file documented as of this encounter Visit Diagnoses Not on filedocumented in this encounter
--- OUTSIDE RECORDS SUMMARY | 2024-07-29 17:44 | XMS_ITS | Encounter Summary ---
Author Organization [facility] Address Formerly [facility], [facility] [place] [address] [place] [address] Care Team Providers Care Diversity Manager Name Role Phone Unavailable Primary Care Provider Unavailabl e Encounter Details Date Type Department Care Team (Latest Contact Info) Description 07/20/2012 Abstract [facility] Faye Amaral D, APNP [address] [place] [address] [place] [id number] Social History Tobacco Use Types Packs/Day Years Used Date Smoking Tobacco: Never Assessed Comments Unknown Sex and Gender Information Value Date Recorded Sex Assigned at Not on file Legal Sex Female 3:40 AM CDT Gender Identity Not on file Sexual Orientation Not on file documented as of this encounter Progress Notes * Manasa Ibarra MD - 07/20/2012 8:27 AM CST Message Recorded as Task Date: 07/20/2012 08:30 AM, Created By: Faye Amaral Task Name: Follow Up Assigned To: Talia Barone Regarding Patient: Lakeisha Alejandra, Status: Active Comment: Faye Amaral - 20 Jul 2012 8:30 AM TASK CREATED Ok to call in Rx Imitrex 50mg #6 with NO refill 1 tab at onset of AREVALO, may repeat x1 in 2hrs if needed If this does not help pt, she will need OV Thanks Talia Barone - 20 Jul 2012 8:41 AM TASK EDITED Called into hospital for special care and pt informed eg,rma Plan 1. SUMAtriptan Succinate 50 MG Oral Tablet; TAKE 1 TABLET FOR MIGRAINE RELIEF. MAY REPEAT EVERY 2 HOURS. MAX 200MG/DAY; Therapy: [id number] to (Last Rx:[id number]) O REFINISHER * Manasa Ibarra MD - 07/20/2012 8:27 AM CST Message Message: pt called this morning stating that she has a migraine and can not keep anything down. Shestates in the past she has had issues with Migraines but it has been a while since she has had one.Per Faye weathers to give rx for Imitrex 50mg take 1 tab at the onset of headache and may repeat dose in2 hours if needed. pt called and informed and would like rx sent to [facility]. eg,rma Plan 1. SUMAtriptan Succinate 50 MG Oral Tablet; TAKE 1 TABLET FOR MIGRAINE RELIEF. MAY REPEAT EVERY 2 HOURS. MAX 200MG/DAY; Therapy: [id number] to (Last Rx:[id number]) O REFINISHER documented in this encounter Plan of Treatment Not on file documented as of this encounter Visit Diagnoses Not on filedocumented in this encounter
--- OUTSIDE RECORDS SUMMARY | 2024-07-29 17:44 | XMS_ITS | Encounter Summary ---
Author Organization [facility] Address [address] [place] [address]. [place] [address] [place] [address] Care Team Providers Care Veneer Stacker Name Role Phone Unavailable Primary Care Provider Unavailabl e Encounter Details Date Type Department Care Team (Late st Contact Info) Description 10/04/2012 Abstract [facility] [address] [place] [address] [place] [address] [phone] Social History Tobacco Use Types Packs/Day Years Used Date Smoking Tobacco: Never Assessed Comments Unknown Sex and Gender Information Value Date Recorded Sex Assigned at Not on file Legal Sex Female 3:40 AM CDT Gender Identity Not on file Sexual Orientation Not on file documented as of this encounter Plan of Treatment Not on file documented as of this encounter Visit Diagnoses Diagnosis Ulcer of other part of lower extremity (CMS/HCC HHS/HCC) documented in this encounter
--- OUTSIDE RECORDS SUMMARY | 2024-07-29 17:44 | XMS_ITS | Encounter Summary ---
Author Organization [facility] Address [address] [place] [address]. [place] [address] [place] [address] Care Team Providers Care Call Center Associate Name Role Phone Blake Lindsey MD Primary Care Provider [phone] Reason for Referral * Imaging (Routine) - Closed Specialty Diagnoses / Procedures Referred By Contac t Referred To Contact RADIOLOGY Diagnoses Thoracic spine pain Procedures CT THOR SPINE WO CON [place] [address] Phone: tel: Referral ID Status Reason Start Date Expiration Date Visits Re quested Visits Authorized [id number] Closed 08/09/2020 09/08/2021 1 1 EL POST DELIVERY * Imaging (Routine) - Closed Specialty Diagnoses / Procedures Referred By Contac t Referred To Contact RADIOLOGY Diagnoses Cervicalgia Procedures CT CERV SPINE WO CON [place] [address] Phone: tel: Referral ID Status Reason Start Date Expiration Date Visits Re quested Visits Authorized [id number] Closed 08/09/2020 09/08/2021 1 1 EL POST DELIVERY Reason for Visit * Imaging (Routine) - Closed Specialty Diagnoses / Procedures Referred By Contac t Referred To Contact RADIOLOGY Diagnoses Thoracic spine pain Procedures CT THOR SPINE WO CON Mary Grace Isaac APRN [facility] [place] [place] [address] Phone: tel: Referral ID Status Reason Start Date Expiration Date Visits Re quested Visits Authorized [id number] Closed 08/09/2020 09/08/2021 1 1 Encounter Details Date Type Department Care Team (Latest Contact Info) Description 08/15/2020 11:30 AM PARCEL POST DELIVERY - 08/15/2020 11:59 PM PARCEL POST DELIVERY Hospital Encounter [facility] [address] [place] [address] Mary Grace Isaac APRN Discharge Disposition: Home or Self Care (Routine [...] have Coronavirus / COVID-19? No / Unsure 08/15/2020 11:29 AM PARCEL POST DELIVERY documented as of this encounter Medications at [...] 0 02/16/2019 traZODone 50 MG tablet 03/30/2020 ALPRAZolam 0.5 MG tablet Take 0.5 mg by mouth 3 (three) times daily as needed. 0 10/21/2018 1 HYDROcodone-acet aminophen 10-325 MG tablet Take 1 tablet by mouth every 6 (six) hours as needed for Pain. 1 hydrOXYzine 25 MG tablet Take 25 mg by mouth 3 (three) times daily as needed for Anxiety. 01/12/2019 1 lamotrigine 100 MG tablet Take 100 mg by mouth daily. 01/04/2019 3 documented as of this encounter Plan of Treatment Not on file documented as of this encounter Procedures Procedure Name Priority Date/Time Associated Diagnosis Comments CT THOR SPINE WO CON Routine 08/15/2020 11:58 AM PARCEL POST DELIVERY Thoracic spine pain CT CERV SPINE WO CON Routine 08/15/2020 11:58 AM PARCEL POST DELIVERY Cervicalgia documented in this encounter Results * CT THOR SPINE WO CON (08/15/2020 11:58 AM PARCEL POST DELIVERY) Anatomical Region Laterality Modality Spine Computed Tomogra phy 08/15/2020 3:08 PM PARCEL POST DELIVERY Impressions 08/15/2020 3:22 PM PARCEL POST DELIVERY IMPRESSION: 1. Redemonstration of post surgical changes of multilevel posterior fusion from C5 through T11, and multilevel degenerative changes in the cervical and thoracic spine, similar to the prior. 2. Stable chronic T6 compression fracture with greater than 75% loss of central vertebral body height. 3. Partially imaged left-sided parotid nodules or lymph nodes, largest measuring up to 11 mm. 4. Cholelithiasis. Narrative 08/15/2020 3:22 PM PARCEL POST DELIVERY EXAMINATION: CT cervical and thoracic spine without contrast CLINICAL HISTORY: Chronic neck and back pain. History of prior surgery/fusion. COMPARISON: 09/07/2019 TECHNIQUE: CT examination of the cervical spine was performed without contrast. ??Axial and multiplanar reformatted images were obtained. A dose lowering technique was used for this procedure, which may include, but is not limited to, dose reduction technique, automated exposure control, the use of iterative reconstruction, and ALARA (As Low As Reasonably Achievable) / Image Gently techniques. FINDINGS: CERVICAL AND THORACIC SPINE: Redemonstration of multilevel posterior fusion from C5 through T11. Bilateral posterior fixation screws are seen at C5-T4 and at T11. Unilateral right-sided fixation screws are seen at T9 and T12, with a single unilateral fixation screw evident at T10. Stable lateral trajectory of the T4 and T9 posterior fixation screws, coursing lateral to the right pedicles. Some of the screws breach the ventral/lateral thoracic vertebral cortex and terminating in the paraspinal soft tissues, similar to the prior. Otherwise the visualized fixation hardware appears intact and without evidence of fracture or loosening. Straightening of the cervical lordosis. Otherwise the cervical vertebral alignment, vertebral body heights, and facet alignment are maintained. Mild degenerative changes are evident in the cervical levels with disc degeneration, small endplate/uncovertebral osteophytes, and facet hypertrophy evident. C2-C3: Mild facet hypertrophy. No canal or foraminal narrowing. C3-C4: Small uncovertebral osteophytes. Mild facet hypertrophy. Mild left foraminal narrowing. C4-C5: Small disc bulge. Small uncovertebral osteophytes. Mild facet hypertrophy, worse on the right. No significant osseous canal or foraminal narrowing. C5-C6: Post surgical changes. Uncovertebral osteophytes. Facet hypertrophy. No osseous canal stenosis. Minimal right foraminal narrowing. C6-C7: Post surgical changes. Uncovertebral osteophytes. Facet hypertrophy. Mild left foraminal narrowing. C7-T1: Slight retrolisthesis. No osseous canal or foraminal narrowing. Redemonstration of old T6 compression fracture with greater than 75% loss of vertebral body height. No significant retropulsion. The remainder of the thoracic vertebral alignment, vertebral body heights, and facet alignment are maintained. Mild degenerative changes seen in the thoracic levels with disc degeneration and endplate osteophytes evident. Examination of the individual thoracic intervertebral levels reveals no osseous canal or foraminal compromise in the thoracic spine. SOFT TISSUES: Partly imaged soft tissue nodules or lymph nodes in the left parotid gland, largest measuring up to 11 mm. Dependent cholelithiasis. Procedure Note Yves Crook MD - 08/15/2020 EXAMINATION: CT cervical and thoracic spine without contrast CLINICAL HISTORY: Chronic neck and back pain. History of prior surgery/fusion. COMPARISON: 09/07/2019 TECHNIQUE: CT examination of the cervical spine was performed without contrast. Axial and multiplanar reformatted images were obtained. A dose lowering technique was used for this procedure, which mayinclude, but is not limited to, dose reduction technique, automated exposure control, the use of iterative reconstruction, and ALARA (As Low As Reasonably Achievable) / Image Gently techniques. FINDINGS: CERVICAL AND THORACIC SPINE: Redemonstration of multilevel posterior fusion from C5 through T11. Bilateral posterior fixation screws are seen at C5-T4 and at T11. Unilateral right-sided fixation screws are seen at T9 and T12, with a single unilateral fixation screw evident at T10. Stable lateraltrajectory of the T4 and T9 posterior fixation screws, coursing lateral to theright pedicles. Some of the screws breach the ventral/lateral thoracicvertebral cortex and terminating in the paraspinal soft tissues, similar to the prior. Otherwise the visualized fixation hardware appears intact and without evidence of fracture or loosening. Straightening of the cervical lordosis. Otherwise the cervical vertebral alignment, vertebral body heights, and facet alignment are maintained.Mild degenerative changes are evident in the cervical levels with disc degeneration, small endplate/uncovertebral osteophytes, and facet hypertrophy evident. C2-C3: Mild facet hypertrophy. No canal or foraminal narrowing. C3-C4: Small uncovertebral osteophytes. Mild facet hypertrophy. Mildleft foraminal narrowing. C4-C5: Small disc bulge. Small uncovertebral osteophytes. Mild facet hypertrophy, worse on the right. No significant osseous canal orforaminal narrowing. C5-C6: Post surgical changes. Uncovertebral osteophytes. Facethypertrophy. No osseous canal stenosis. Minimal right foraminal narrowing. C6-C7: Post surgical changes. Uncovertebral osteophytes. Facethypertrophy. Mild left foraminal narrowing. C7-T1: Slight retrolisthesis. No osseous canal or foraminal narrowing. Redemonstration of old T6 compression fracture with greater than 75%loss of vertebral body height. No significant retropulsion. The remainder ofthe thoracic vertebral alignment, vertebral body heights, and facetalignment are maintained. Mild degenerative changes seen in the thoracic levelswith disc degeneration and endplate osteophytes evident. Examination of the individual thoracic intervertebral levels reveals no osseous canal or foraminal compromise in the thoracic spine. SOFT TISSUES: Partly imaged soft tissue nodules or lymph nodes in the left parotidgland, largest measuring up to 11 mm. Dependent cholelithiasis. IMPRESSION: 1. Redemonstration of post surgical changes of multilevel posteriorfusion from C5 through T11, and multilevel degenerative changes in the cervical and thoracic spine, similar to the prior. 2. Stable chronic T6 compression fracture with greater than 75% loss of central vertebral body height. 3. Partially imaged left-sided parotid nodules or lymph nodes, largest measuring up to 11 mm. 4. Cholelithiasis. Mary Grace Isaac GEOGRAPHY PROFESSOR CT Final Result * CT CERV SPINE WO CON (08/15/2020 11:58 AM PARCEL POST DELIVERY) Anatomical Region Laterality Modality Spine Computed Tomogra phy 08/15/2020 3:08 PM PARCEL POST DELIVERY Impressions 08/15/2020 3:22 PM PARCEL POST DELIVERY IMPRESSION: 1. Redemonstration of post surgical changes of multilevel posterior fusion from C5 through T11, and multilevel degenerative changes in the cervical and thoracic spine, similar to the prior. 2. Stable chronic T6 compression fracture with greater than 75% loss of central vertebral body height. 3. Partially imaged left-sided parotid nodules or lymph nodes, largest measuring up to 11 mm. 4. Cholelithiasis. Narrative 08/15/2020 3:22 PM PARCEL POST DELIVERY EXAMINATION: CT cervical and thoracic spine without contrast CLINICAL HISTORY: Chronic neck and back pain. History of prior surgery/fusion. COMPARISON: 09/07/2019 TECHNIQUE: CT examination of the cervical spine was performed without contrast. ??Axial and multiplanar reformatted images were obtained. A dose lowering technique was used for this procedure, which may include, but is not limited to, dose reduction technique, automated exposure control, the use of iterative reconstruction, and ALARA (As Low As Reasonably Achievable) / Image Gently techniques. FINDINGS: CERVICAL AND THORACIC SPINE: Redemonstration of multilevel posterior fusion from C5 through T11. Bilateral posterior fixation screws are seen at C5-T4 and at T11. Unilateral right-sided fixation screws are seen at T9 and T12, with a single unilateral fixation screw evident at T10. Stable lateral trajectory of the T4 and T9 posterior fixation screws, coursing lateral to the right pedicles. Some of the screws breach the ventral/lateral thoracic vertebral cortex and terminating in the paraspinal soft tissues, similar to the prior. Otherwise the visualized fixation hardware appears intact and without evidence of fracture or loosening. Straightening of the cervical lordosis. Otherwise the cervical vertebral alignment, vertebral body heights, and facet alignment are maintained. Mild degenerative changes are evident in the cervical levels with disc degeneration, small endplate/uncovertebral osteophytes, and facet hypertrophy evident. C2-C3: Mild facet hypertrophy. No canal or foraminal narrowing. C3-C4: Small uncovertebral osteophytes. Mild facet hypertrophy. Mild left foraminal narrowing. C4-C5: Small disc bulge. Small uncovertebral osteophytes. Mild facet hypertrophy, worse on the right. No significant osseous canal or foraminal narrowing. C5-C6: Post surgical changes. Uncovertebral osteophytes. Facet hypertrophy. No osseous canal stenosis. Minimal right foraminal narrowing. C6-C7: Post surgical changes. Uncovertebral osteophytes. Facet hypertrophy. Mild left foraminal narrowing. C7-T1: Slight retrolisthesis. No osseous canal or foraminal narrowing. Redemonstration of old T6 compression fracture with greater than 75% loss of vertebral body height. No significant retropulsion. The remainder of the thoracic vertebral alignment, vertebral body heights, and facet alignment are maintained. Mild degenerative changes seen in the thoracic levels with disc degeneration and endplate osteophytes evident. Examination of the individual thoracic intervertebral levels reveals no osseous canal or foraminal compromise in the thoracic spine. SOFT TISSUES: Partly imaged soft tissue nodules or lymph nodes in the left parotid gland, largest measuring up to 11 mm. Dependent cholelithiasis. Procedure Note Yves Crook MD - 08/15/2020 EXAMINATION: CT cervical and thoracic spine without contrast CLINICAL HISTORY: Chronic neck and back pain. History of prior surgery/fusion. COMPARISON: 09/07/2019 TECHNIQUE: CT examination of the cervical spine was performed without contrast. Axial and multiplanar reformatted images were obtained. A dose lowering technique was used for this procedure, which mayinclude, but is not limited to, dose reduction technique, automated exposure control, the use of iterative reconstruction, and ALARA (As Low As Reasonably Achievable) / Image Gently techniques. FINDINGS: CERVICAL AND THORACIC SPINE: Redemonstration of multilevel posterior fusion from C5 through T11. Bilateral posterior fixation screws are seen at C5-T4 and at T11. Unilateral right-sided fixation screws are seen at T9 and T12, with a single unilateral fixation screw evident at T10. Stable lateraltrajectory of the T4 and T9 posterior fixation screws, coursing lateral to theright pedicles. Some of the screws breach the ventral/lateral thoracicvertebral cortex and terminating in the paraspinal soft tissues, similar to the prior. Otherwise the visualized fixation hardware appears intact and without evidence of fracture or loosening. Straightening of the cervical lordosis. Otherwise the cervical vertebral alignment, vertebral body heights, and facet alignment are maintained.Mild degenerative changes are evident in the cervical levels with disc degeneration, small endplate/uncovertebral osteophytes, and facet hypertrophy evident. C2-C3: Mild facet hypertrophy. No canal or foraminal narrowing. C3-C4: Small uncovertebral osteophytes. Mild facet hypertrophy. Mildleft foraminal narrowing. C4-C5: Small disc bulge. Small uncovertebral osteophytes. Mild facet hypertrophy, worse on the right. No significant osseous canal orforaminal narrowing. C5-C6: Post surgical changes. Uncovertebral osteophytes. Facethypertrophy. No osseous canal stenosis. Minimal right foraminal narrowing. C6-C7: Post surgical changes. Uncovertebral osteophytes. Facethypertrophy. Mild left foraminal narrowing. C7-T1: Slight retrolisthesis. No osseous canal or foraminal narrowing. Redemonstration of old T6 compression fracture with greater than 75%loss of vertebral body height. No significant retropulsion. The remainder ofthe thoracic vertebral alignment, vertebral body heights, and facetalignment are maintained. Mild degenerative changes seen in the thoracic levelswith disc degeneration and endplate osteophytes evident. Examination of the individual thoracic intervertebral levels reveals no osseous canal or foraminal compromise in the thoracic spine. SOFT TISSUES: Partly imaged soft tissue nodules or lymph nodes in the left parotidgland, largest measuring up to 11 mm. Dependent cholelithiasis. IMPRESSION: 1. Redemonstration of post surgical changes of multilevel posteriorfusion from C5 through T11, and multilevel degenerative changes in the cervical and thoracic spine, similar to the prior. 2. Stable chronic T6 compression fracture with greater than 75% loss of central vertebral body height. 3. Partially imaged left-sided parotid nodules or lymph nodes, largest measuring up to 11 mm. 4. Cholelithiasis. Mary Grace Isaac GEOGRAPHY PROFESSOR CT Final Result documented in this encounter Visit Diagnoses Diagnosis Cervicalgia Thoracic spine pain Pain in thoracic spine documented in this encounter Care Teams Call Center Associate Relationship Specialty Start Date End Date Blake Lindsey MD [address] [address] PCP - General FAMILY PRACTICE 03/03/19 documented as of this encounter
--- OUTSIDE RECORDS SUMMARY | 2024-07-29 17:44 | XMS_ITS | Encounter Summary ---
Author Organization [facility] Address [address] [place] [address]. [place] [address] [place] [address] Care Team Providers Care Aircraft Sales Representative Name Role Phone Blake Lindsey MD Primary Care Provider [phone] Reason for Visit * Reason Comments Breathing Problem Cough Encounter Details Date Type Department Care Team (Latest Contact Info) Description 12/22/2020 3:00 PM CDT - 12/22/2020 3:58 PM CDT Hospital Encounter [facility] [address] [place] [address] Charlie Galdamez PA [address] [place], [place] [id number] Breathing Problem; Cough Discharge Disposition: Home or Self Care (Routine [...] Sign Reading Time Taken Comments Blood Pressure 102/77 12/22/2020 3:45 PM CDT Pulse 98 12/22/2020 3:07 PM CDT Temperature 36.5 ??C (97.7 ??F) 12/22/2020 3:07 PM CD T Respiratory Rate 22 12/22/2020 3:07 PM CDT Oxygen Saturation 98% 12/22/2020 3:48 PM CDT Inhaled Oxygen Concentration - - Weight 81.6 kg (180 lb) 12/22/2020 3:07 PM CDT Height 160 cm (5' 3 ) 12/22/2020 3:07 PM CDT Body Mass Index 31.89 12/22/2020 3:07 PM CDT documented in this encounter Discharge Instructions * Discharge Instructions* ELOINA Mascorro - 12/22/2020 3:47 PM CDT Take medication as prescribed. Follow-up with your primary care provider in 5 to 7 days. Return emergency department symptoms worsen or new concerns. * Attachments The following attachments cannot be sent through Care Everywhere. * Atypical Pneumonia (Mycoplasma and Viral) Discharge Instructions (Vietnamese) documented in this encounter Medications at Time [...] for four days. 6 tablet 12/22/2020 1 benzonatate 200 MG capsule Take 1 capsule (200 mg total) by mouth 3 (three) times daily as needed. 20 capsule 12/22/2020 1 HYDROcodone-acet aminophen 10-325 MG tablet Take 1 tablet by mouth every 6 (six) hours as needed for Pain. 1 lamotrigine 100 MG tablet Take 100 mg by mouth daily. 01/04/2019 3 predniSONE 50 MG tablet Take 1 tablet (50 mg total) by mouth daily for 5 days. 5 tablet 12/22/2020 1 documented as of this encounter ED Notes * Autumn Huang RN - 12/22/2020 3:04 PM CDT Pt ambulatory to from home with c/o cough beginning last week, cough became productive Wednesday with green mucous, sob with and without exertion, fatigue. Pt reports home o2 sat hovering close to 90% on RA. Pt been using nebs tx without relief. Pt is not vaccinated for covid, denies having covid. Pt states home neb tx and inhaler not working. * ELOINA Mascorro - 12/22/2020 2:50 PM CDT ED NOTE Chief Complaint Chief Complaint Patient presents with ??? Breathing Problem ??? Cough History of Present Illness 50-year-old female with past history of COPD and recurrent pneumonia presenting to urgent care withcomplaints of cough that is worsened over the past week. Associated with generalized weakness, nasal congestion and fatigue. Has been using her albuterol nebulizer at home with minimal relief. Cough has been mainly nonproductive. States does feel similar to bronchitis and pneumonia in the past. No known Covid exposures. Has not been vaccinated for Covid. Denies hemoptysis, nausea, vomiting or dyspnea at rest. Medical History ALLERGIES: Allergies Allergen Reactions ??? Penicillins Rash and Unknown ??? Amoxicillin Rash ??? Codeine Other (see comment) Passes out, Passes out ??? Epinephrine Other (see comment) When injected in mouth for dental procedures, makes extremities go numb MEDICATIONS: Prior to Admission medications Medication Sig Start Date End Date Taking? Authorizing Provider azithromycin 250 MG tablet Take 2 tablets by mouth on day one then 1 daily for four days. 12/22/20 Yes ELOINA Mascorro benzonatate 200 MG capsule Take 1 capsule (200 mg total) by mouth 3 (three) times daily as needed. 12/22/20 12/29/20 Yes ELOINA Mascorro predniSONE 50 MG tablet Take 1 tablet (50 mg total) by mouth daily for 5 days. 12/22/20 12/27/20 Yes ELOINA Mascorro albuterol (2.5 MG/3ML) 0.083% nebulizer solution Take 3 mLs (2.5 mg total) by nebulization every 4 (four) hours as needed for Wheezing. 04/09/20 STANFORD Davalos albuterol sulfate HFA 108 (90 Base) MCG/ACT inhaler Inhale 2 puffs into the lungs every 4 (four) hours as needed for Wheezing or Shortness of breath (cough). 04/09/20 STANFORD Davalos atorvastatin 10 MG tablet Take 10 mg by mouth nightly. 03/02/19 Doc Abstract fluticasone propionate (FLONASE) 50 MCG/ACT nasal spray 1 spray by Each Nostril route 2 (two) timesa day. 04/09/20 STANFORD Davalos furosemide 20 MG tablet Take 20 mg by mouth daily. 02/23/19 Doc Abstract HYDROcodone-acetaminophen 10-325 MG tablet Take 1 tablet by mouth every 6 (six) hours as needed forPain. Doc Abstract lamotrigine 100 MG tablet Take [...] 03/30/20 Doc Abstract PAST MEDICAL HISTORY: Past medical history negative for heart disease, cancer, and diabetes. Past Medical History: Diagnosis Date ??? Arthritis [...] Former Smoker Quit date: 1997 Years since quittin.4 ??? Smokeless tobacco: Never Used Substance Use Topics ??? Alcohol use: Yes Alcohol/week: 1.7 standard drinks Types: 1 Shots of liquor per week ??? Drug use: No Review of Systems Review of Systems Constitutional: Negative for activity change and appetite change. HENT: Positive for congestion. Negative for ear discharge, ear pain and sore throat. Respiratory: Positive for cough, chest tightness and wheezing. Negative for shortness of breath. Cardiovascular: Negative for chest pain. Gastrointestinal: Negative for abdominal pain, nausea and vomiting. Musculoskeletal: Negative for back pain and neck pain. Neurological: Negative for dizziness, syncope and light-headedness. Physical Exam Filed Vitals: 12/22/20 1507 12/22/20 1545 12/22/20 1548 BP: (!) 83/72 102/77 Pulse: 98 Resp: 22 Temp: 97.7 ??F (36.5 ??C) TempSrc: Oral SpO2: 94% 98% Weight: 81.6 kg (180 lb) Height: 5' 3 (1.6 m) Physical Exam Constitutional: She is oriented to person, place, and time. She appears well- developed and well-nourished. No distress. HENT: Head: Normocephalic. Nose: Nose normal. Mouth/Throat: Oropharynx is clear and moist. Eyes: Conjunctivae and EOM are normal. Cardiovascular: Normal rate, regular rhythm and normal heart sounds. Pulmonary/Chest: Effort normal. No respiratory distress. She has wheezes. Musculoskeletal: Cervical back: Normal range of motion and neck supple. Neurological: She is alert and oriented to person, place, and time. Skin: Skin is warm and dry. Psychiatric: She has a normal mood and affect. Her behavior is normal. Judgment and thought contentnormal. Nursing note and vitals reviewed. Diagnostic Studies / Procedures ELECTROCARDIOGRAMS: No results found for this visit on 12/22/20. LABORATORY STUDIES: No results found for this visit on 12/22/20. IMAGING STUDIES XR CHEST PA+LAT Final Result by User, [id number] (12/22 1534) Procedure(s): XR CHEST PA+LAT Date of service: 12/22/2020 3:14 PM Provided clinical information: 50 years, Female, sob Procedure and materials: PA and lateral Comparison studies: February 19, 2019 Observations: Cardiac silhouette is within normal limits. Bilateral spinal rods are present. Within the right infrahilar region there is a opacification is present which may relate to atelectasis and/or early consolidative changes. Patient does have a known prominent right epicardial fat pad. IMPRESSION: Mild right infrahilar opacification is present. This may relate to the epicardial fat pad. Early consolidative or atelectatic changes are not excluded. Referred By: Interpreted By: Tim Bland MD, 12/22/2020 3:31 PM ED Course / Medical Decision Making ED Course as of December 22 1552 Sun December 22, 2020 1547 Chest x-ray with no opacification, could be early consolidation. Given patient with worsening cough for the next week will start on azithromycin to cover for atypical pneumonia Covid swab is pending as well. Patient in no respiratory distress at this time. Is stable for outpatient follow-up. [MB] ED Course User Index [MB] ELOINA Mascorro Medications - No data to display Clinical Impression Atypical pneumonia (Primary) Current Discharge Medication List START taking these medications Details azithromycin 250 MG tablet Take 2 tablets by mouth on day one then 1 daily for four days. Qty: 6 tablet, Refills: 0 Class: Eprescribe Pharmacy: [facility] [place] [address] [address] [facility] [address] (Ph #: [phone]) benzonatate 200 MG capsule Take 1 capsule (200 mg total) by mouth 3 (three) times daily as needed. Qty: 20 capsule, Refills: 0 Class: EprPiazzacribe Pharmacy: [facility] [address] [place] [address] [address] [facility] [address] (Ph #: [phone]) predniSONE 50 MG tablet Take 1 tablet (50 mg total) by mouth daily for 5 days. Qty: 5 tablet, Refills: 0 Class: Eprescribe [facility]: [facility] [place] [address] [address] [facility] [address] (Ph #: [phone]) Disposition: Discharge Follow-Up: Blake Lindsey MD [address] [place] [address] Schedule an appointment as soon as possible for a visit in 1 week As needed ELOINA Mascorro 12/22/2020 ELOINA Mascorro 12/22/20 1552 Cosigned by Eden Montenegro MD at 12/23/2020 10:15 PM CDT documented in this encounter Plan of Treatment Not on file documented as of this encounter Procedures Procedure Name Priority Date/Time Associated Diagnosis Comments CORONAVIRUS (COVID 19) Routine 12/22/2020 3:43 PM CDT XR CHEST PA+LAT STAT 12/22/2020 3:25 PM CDT documented in this encounter Results * CORONAVIRUS (COVID 19) PCR [facility] (12/22/2020 3:43 PM CDT) CORONAVIRUS SARS COV 2 PCR (RESP) NOT DETECTED NOT DETECTED 12/23/2020 1:01 PM CDT [facility] Comment: A Not Detected (negative) test result for this test means that SARS- CoV-2 RNA was not present in the specimen above the limit of detection. A negative result does not rule out the possibility of COVID-19 and should not be used as the sole basis for treatment or patient management decisions. ??If COVID-19 is still suspected, based on exposure history together with other clinical findings, re-testing should be considered in consultation with public health authorities. Laboratory test results should always be considered in the context of clinical observations and epidemiological data in making a final diagnosis and patient management decisions. Please review the Fact Sheets and FDA authorized labeling available for health care providers and patients using the following websites: https://www.LoveLive.TV.The Price Wizards/home/Covid-19/HCP/QuestIVD/fact- sheet.html https://www.LoveLive.TV.com/home/Covid-19/Patients/ QuestIVD/fact-sheet.html This test has been authorized by the FDA under an Emergency Use Authorization (EUA) for use by authorized laboratories. Due to the current public health emergency, [facility] is receiving a high volume of samples from a wide variety of swabs and media for COVID-19 testing. In order to serve patients during this public health crisis, samples from appropriate clinical sources are being tested. Negative test results derived from specimens received in non-commercially manufactured viral collection and transport media, or in media and sample collection kits not yet authorized by FDA for COVID-19 testing should be cautiously evaluated and the patient potentially subjected to extra precautions such as additional clinical monitoring, including collection of an additional specimen. Methodology: ??Nucleic Acid Amplification Test (NAAT) includes RT-PCR or TMA Additional information about COVID-19 can be found at the [facility] website: www.iGlue.The Price Wizards/Covid19. Test performed at [facility] [place] [address] [facility] [place], [place] ??[address] Director: GUIDO SALDANA DO,MPH FIRST TEST NO 12/22/2020 3:46 PM CDT [facility] EMPLOYED IN HEALTHCARE NO 12/22/2020 3:46 PM CDT [facility] SYMPTOMATIC DEFINED BY CDC YES 12/22/2020 3:46 PM CDT [facility] DATE OF SYMPTOM ONSET [id number] 12/22/2020 3:46 PM CDT [facility] HOSPITALIZATION STATUS NO 12/22/2020 3:46 PM CDT [facility] PATIENT IN ICU NO 12/22/2020 5:28 PM CDT [facility] RESIDENT OF [facility] NO 12/22/2020 3:46 PM CDT [facility] NOT 12/22/2020 3:46 PM CDT [facility] PATIENT'S RACE WHITE OR 12/22/2020 3:46 PM CDT [facility] ETHNICITY NONHISPANIC 12/22/2020 3:46 PM CDT [facility] SOURCE (QST) NASOPHARYNGEAL SWAB 12/22/2020 3:46 PM CDT [facility] NASOPHARYNGEAL SWAB / Unknown 12/22/2020 3:43 PM CDT [facility] - GENERAL CHRISTOPHER DE LA GARZA Final Result [facility] [address] [place] [address], [facility] [address] [place] [address], [facility] [address] [facility] [place] [address], * XR CHEST PA+LAT (12/22/2020 3:25 PM CDT) Anatomical Region Laterality Modality Chest Radiographic Jonna ging 12/22/2020 3:31 PM CDT Impressions 12/22/2020 3:33 PM CDT IMPRESSION: Mild right infrahilar opacification is present. ??This may relate to the epicardial fat pad. ??Early consolidative or atelectatic changes are not excluded. Referred By: ?? Interpreted By: Tim Bland MD, 12/22/2020 3:31 PM Narrative 12/22/2020 3:33 PM CDT Procedure(s): XR CHEST PA+LAT Date of service: 12/22/2020 3:14 PM Provided clinical information: 50 years, Female, sob Procedure and materials: PA and lateral Comparison studies: February 19, 2019 Observations: ?? Cardiac silhouette is within normal limits. ??Bilateral spinal rods are present. ??Within the right infrahilar region there is a opacification is present which may relate to atelectasis and/or early consolidative changes. ??Patient does have a known prominent right epicardial fat pad. Procedure Note Tim Bland MD - 12/22/2020 Procedure(s): XR CHEST PA+LAT Date of service: 12/22/2020 3:14 PM Provided clinical information: 50 years, Female, sob Procedure and materials: PA and lateral Comparison studies: February 19, 2019 Observations: Cardiac silhouette is within normal limits. Bilateral spinal rods arepresent. Within the right infrahilar region there is a opacification ispresent which may relate to atelectasis and/or early consolidativechanges. Patient does have a known prominent right epicardial fat pad. IMPRESSION: Mild right infrahilar opacification is present. This may relate to theepicardial fat pad. Early consolidative or atelectatic changes are notexcluded. Referred By: Interpreted By: Tim Bland MD, 12/22/2020 3:31 PM [facility] Final Resul t documented in this encounter Visit Diagnoses Diagnosis Atypical pneumonia- Primary Pneumonia, organism unspecified documented in this encounter Additional Health Concerns Infection Onset Date Last Indicated Resolved Time COVID-19 Rule Out 12/22/2020 12/22/2020 12/23/2020 1:01 PM CDT documented as of this encounter Care Teams Aircraft Sales Representative Relationship Specialty Start Date End Date Blake Lindsey MD [address] [address] PCP - General FAMILY PRACTICE 03/03/19 documented as of this encounter
--- OUTSIDE RECORDS SUMMARY | 2024-07-29 17:44 | XMS_ITS | Encounter Summary ---
Author Organization [facility] Address [address] [place] [address]. [place] [address] [place] [address] Care Team Providers Care Electrical Checkout Mechanic Name Role Phone Unavailable Primary Care Provider Unavailabl e Encounter Details Date Type Department Care Team (Latest Contact Info) Description 09/07/2012 [facility] Social History Tobacco Use Types Packs/Day Years [...]
--- OUTSIDE RECORDS SUMMARY | 2024-07-29 17:44 | XMS_ITS | Encounter Summary ---
Author Organization [facility] Address [address] [place] [address]. [place] [address] [place] [address] Care Team Providers Care Wood Patternmaker Name Role Phone Unavailable Primary Care Provider Unavailabl e Encounter Details Date Type Department Care Team (Late st Contact Info) Description 10/18/2012 Abstract [facility] [address] [place] [address] [place] [address] [address] Social History Tobacco Use Types [...]
--- OUTSIDE RECORDS SUMMARY | 2024-07-29 17:44 | XMS_ITS | Encounter Summary ---
Author Organization [facility] Address [address] [place] [address]. [place] [address] [place] [address] Care Team Providers Care Certified Professional Ergonomist Name Role Phone Unavailable Primary Care Provider Unavailabl e Encounter Details Date Type Department Care Team (Late st Contact Info) Description 05/25/[address] [facility] [address] [place] [address] [place] [address] [address] Social History Tobacco Use Types [...] as of this encounter Visit Diagnoses Diagnosis Disorder of skin and subcutaneous tissue Unspecified disorder of skin and subcutaneous tissue documented in this encounter
--- OUTSIDE RECORDS SUMMARY | 2024-07-29 17:44 | XMS_ITS | Encounter Summary ---
Author Organization [facility] Address [address] [place] [address]. [place] [address] [place] [address] Care Team Providers Care Manager Labor Relations Name Role Phone Unavailable Primary Care Provider Unavailabl e Encounter Details Date Type Department Care Team (Late st Contact Info) Description 05/25/2012 Abstract [facility] General Surgery [facility] [address] [facility], [address] [place] [address] [place] [address] [facility] [address] [place] [address] Social History Tobacco Use Types Packs/Day [...] - Inhaled Oxygen Concentration - - Weight 86.2 kg (190 lb) 05/25/2012 9:44 AM CDT Height 160 cm (5' 3 ) 05/25/2012 9:44 AM CDT Body Mass Index 33.66 05/25/2012 9:44 AM CDT documented in this encounter Progress Notes * Allen Flores MD - 05/25/2012 9:45 AM CDT Reason For Visit Reason For Visit: Consultation Visit Chief Complaint Chief Complaint: C/O RIGHT LOWER LEG LESION THAT HAS BEEN GETTING WORSE FOR APPRX 1 MONTH. PATIENT STATES SHE HAD ANOTHER OF THESE LESIONS AND IT CLEARED UP WITH ANTIBIOTICS. WORKS AT [employer] AND HAD 2 CULTURES DONE THERE. PCP IS DR. 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 Active Problems 1. Anxiety 300.00 2. Asthma 493.90 3. Erythema Nodosum 695.2 4. Shortness Of Breath 786.05 5. Skin: A Rash 782.1 6. Tooth Pain 525.9 Surgical History 1. History of Knee Surgery Social History ?? Former Smoker V15.82 Current Meds 1. ALPRAZolam 0.25 MG Oral Tablet; TK 1 T PO D; Therapy: [id number] to 2. Erythromycin Base 500 MG Oral Tablet; TK 1 T PO Q 8 H TAT; Therapy: [id number] to 3. Proventil HFA 108 (90 Base) MCG/ACT Inhalation Aerosol Solution; INHALE 1-2 PUFFS EVERY 4-6 HOURS NEEDED AND DIRECTED; Therapy: [id number] to (Last Rx:[id number]) 4. TraMADol HCl 50 MG Oral Tablet; TK 1/2 T 25MG PO Q 6 TO 8 H PRN FOR PAIN; Therapy: [id number] to Allergies 1. Amoxicillin TABS Vitals Vital Signs [Data Includes: Current Encounter] 25May2012 09:44AM BMI Calculated 33.66 BSA Calculated 1.89 Height 5 ft 3 in Weight 190 lb Physical Exam Skin - Skin and subcutaneous tissue: Abnormal. 2 cm necrotic ulcer lateral aspect right lower extremity. Assessment 1. Open Wound Of The Leg, Complicated 891.1 Plan PATIENT EDUCATION: The planned procedure/s, the expected benefits,the associated risks,possible complications, and alternatives to the procedure/s have been discussed in detail with the patient or family. They state that they understand, have no further questions and agree to proceed with the procedure/s as outlined. Procedures/Surgery: debridement and biopsy of necrotic leg wound Discussion/Summary Discussion Summary: Area infiltrated withh 1% lidocaine Wound debrided, tissue sent for tissue culture and biopsy Clean wound daily with NS and apply duoderm gel Toradol 10 mg po q 6 prn pain f/u 1 week Signatures Electronically signed by : Allen Flores M.D.; May 25 2012 11:55AM (Author) S NURSE documented in this encounter Plan of Treatment Not on file documented as of this encounter Visit Diagnoses Not on filedocumented in this encounter
--- OUTSIDE RECORDS SUMMARY | 2024-07-29 17:44 | XMS_ITS | Encounter Summary ---
Author Organization [facility] Address [address] [place] [address]. [place] [address] [place] [address] Care Team Providers Care Forklift Truck Mechanic Name Role Phone Unavailable Primary Care Provider Unavailabl e Encounter Details Date Type Department Care Team (Late st Contact Info) Description 10/25/2012 Abstract [facility] [address] [place] [address] [place] [address] [address] Social History Tobacco Use Types [...] of this encounter Visit Diagnoses Diagnosis Chronic ulcer of calf ([facility]/HCC HHS/[facility]) Ulcer of calf documented in this encounter
--- OUTSIDE RECORDS SUMMARY | 2024-07-29 17:44 | XMS_ITS | Encounter Summary ---
Author Organization [facility] Address [address] [place] [address]. [place] [address] [place] [address] Care Team Providers Care Cyber Threat Analyst Name Role Phone Unavailable Primary Care Provider Unavailabl e Encounter Details Date Type Department Care Team (Latest Contact Info) Description 05/09/2012 Abstract [facility] Manasa Ibarra MD Social History [...]
--- OUTSIDE RECORDS SUMMARY | 2024-07-29 17:44 | XMS_ITS | Encounter Summary ---
Author Organization [facility] Address [address] [place] [address]. [place] [address] [place] [address] Care Team Providers Care Website Project Manager Name Role Phone Unavailable Primary Care Provider Unavailabl e Encounter Details Date Type Department Care Team (Late st Contact Info) Description 08/24/2012 Abstract [facility] [address] [place] [address] [place] [address] [facility] [address] [place] [address] Social History Tobacco Use Types [...] this encounter Visit Diagnoses Diagnosis Ulcer of lower extremity (CMS/HCC HHS/HCC) Ulcer of lower limb, unspecified documented in this encounter
--- OUTSIDE RECORDS SUMMARY | 2024-07-29 17:44 | XMS_ITS | Encounter Summary ---
Author Organization [facility] Address [address] [place] [address]. [place] [address] [place] [address] Care Team Providers Care Recreation Specialist Name Role Phone Blake Lindsey MD Primary Care Provider [phone] Encounter Details Date Type Department Care Team (Latest Contact Info) Description 04/09/2020 Travel Social History Tobacco Use Types Packs/Day [...] have Coronavirus / COVID-19? No / Unsure 04/09/2020 1:01 PM CDT documented as of this encounter Plan of Treatment Not on file documented as of this encounter Visit Diagnoses Not on filedocumented in this encounter Care Teams Recreation Specialist Relationship Specialty Start Date End Date Blake Lindsey MD [address] [place] [address] PCP - General FAMILY PRACTICE 03/03/19 documented as of this encounter
--- OUTSIDE RECORDS SUMMARY | 2024-07-29 17:44 | XMS_ITS | Encounter Summary ---
Author Organization [facility] Address [address] [place] [address]. [place] [address] [place] [address] Care Team Providers Care Miller Head Wet Process Name Role Phone Unavailable Primary Care Provider Unavailabl e Encounter Details Date Type Department Care Team (Latest Contact Info) Description 05/11/2013 Abstract [facility] [place] [address] [address] Social History Tobacco Use Types [...] Procedure Name Priority Date/Time Associated Diagnosis Comments ULTRASOUND GENERIC (SCAN ORDER) Routine 05/11/2013 4:04 PM CDT documented in this encounter Results * ULTRASOUND GENERIC (05/11/2013 4:04 PM CDT) Anatomical Region Laterality Modality Other 05/11/2013 4:04 PM CDT 05/11/2013 4:04 PM CDT Narrative 07/20/2013 8:36 AM PARK WATTS MD: EYAD LOUIE MD ?? ACCT: [id number] ?? ADMIT/SERVICE DATE: 08/24/12 DISCHARGE DATE: ?? : 1970 PT TYPE: REG CLI ?? SEX: F ORD SITE: [facility] ? STUDY DATE REPORT # PROCEDURE CODE PROCEDURE ?? 08/24/12 [id number] DOPARTEXTC US DOPPLER ARTERIAL EXTREM CMP ? EXTORDERID ? [id number] ? CHART DOCUMENT ? DIVISION OF RADIOLOGY ? ACCESSION # ?EXAM DATE ? EXAM DESCRIPTION ?? [id number] ?08/24/2012 ?US DOPPLER ARTERIAL EXTREM CMP ? IMAGING STUDY: ?INTERPRETATION OF T COM STUDY ? STUDY WAS PERFORMED ON 08-24-2012. ? READING WAS PERFORMED ON 05-11-2013. ? THE T COM WAS DONE WITH FOUR LEADS, A PROXIMAL AND DISTAL RIGHT AND ?? LEFT LEG. ??THE RIGHT LEG PROXIMAL LEAD MEASURED 66 MMHG. WITH THE DISTAL ?? LEAD MEASURED 35 MMHG. ??WITH LEG ELEVATION THIS DECREASED TO 31 MMHG. AND ?? WITH OXYGEN CHALLENGED INCREASED TO 151 MMHG. ??THIS WAS A 333% INCREASE. ?? THE RIGHT LEG MEASUREMENT OF 35 MILLIMETERS WOULD INDICATE MODERATE ?? PERIPHERAL ARTERIAL DISEASE AND IN THE CORRECT CLINICAL SETTING THE ?? PATIENT ?? WOULD BENEFIT FROM HYPERBARIC OXYGEN TREATMENT. ??THE LEFT LEG PROXIMAL ?? LEAD ?? MEASURED 58 AND THE DISTAL LEAD MEASURED 21. ??WITH LEG ELEVATION DECREASED ?? TO 13. ??WITH OXYGEN CHALLENGE ONLY INCREASED TO 24 MMHG. WHICH IS A 17% ?? INCREASE. ??THIS IS SUGGESTIVE OF SEVERE PERIPHERAL ARTERIAL DISEASE AND ?? THAT THE PATIENT WOULD NOT BENEFIT FROM HYPERBARIC OXYGEN TREATMENT. ? ELECTRONICALLY SIGNED BY ?? EYAD LOUIE JR, MD 07/20/2013 08:35 ? ROM/NAC ?? 05/11/2013 4:04 P ?? 05/11/2013 ??4:19 P ?? JOB NO: ?DOC NO: ??[id number] ?? CC: ?EYAD LOUIE JR, MD ? Procedure Note Pinky Mercado MD - 05/25/2018 PARK ALEJANDRA ORDERING MD: EYAD LOUIE MD ACCT: [id number] ADMIT/SERVICE DATE: 08/24/12 DISCHARGE DATE: : 1970 PT TYPE: REG CLI SEX: F ORD SITE: [facility] STUDY DATE REPORT # PROCEDURE CODE PROCEDURE 08/24/12 [id number] DOPARTEXTC US DOPPLER ARTERIAL EXTREM CMP EXTORDERID [id number] CHART DOCUMENT DIVISION OF RADIOLOGY ACCESSION # EXAM DATE EXAM DESCRIPTION [id number] 08/24/2012 US DOPPLER ARTERIAL EXTREM CMP IMAGING STUDY: INTERPRETATION OF T COM STUDY STUDY WAS PERFORMED ON 08-24-2012. READING WAS PERFORMED ON 05-11-2013. THE T COM WAS DONE WITH FOUR LEADS, A PROXIMAL AND DISTAL RIGHT AND LEFT LEG. THE RIGHT LEG PROXIMAL LEAD MEASURED 66 MMHG. WITH THE DISTAL LEAD MEASURED 35 MMHG. WITH LEG ELEVATION THIS DECREASED TO 31 MMHG. AND WITH OXYGEN CHALLENGED INCREASED TO 151 MMHG. THIS WAS A 333% INCREASE. THE RIGHT LEG MEASUREMENT OF 35 MILLIMETERS WOULD INDICATE MODERATE PERIPHERAL ARTERIAL DISEASE AND IN THE CORRECT CLINICAL SETTING THE PATIENT WOULD BENEFIT FROM HYPERBARIC OXYGEN TREATMENT. THE LEFT LEG PROXIMAL LEAD MEASURED 58 AND THE DISTAL LEAD MEASURED 21. WITH LEG ELEVATIONDECREASED TO 13. WITH OXYGEN CHALLENGE ONLY INCREASED TO 24 MMHG. WHICH IS A 17% INCREASE. THIS IS SUGGESTIVE OF SEVERE PERIPHERAL ARTERIAL DISEASE AND THAT THE PATIENT WOULD NOT BENEFIT FROM HYPERBARIC OXYGEN TREATMENT. ELECTRONICALLY SIGNED BY EYAD LOUIE JR, MD 07/20/2013 08:35 ROM/NAC 05/11/2013 4:04 P 05/11/2013 4:19 P JOB NO: DOC NO: [id number] CC: EYAD LOUIE JR, MD Eyad Louie MD SCANNING Final Result documented in this encounter Visit Diagnoses Not on filedocumented in this encounter
--- OUTSIDE RECORDS SUMMARY | 2024-07-29 17:44 | XMS_ITS | Encounter Summary ---
Author Organization [facility] Address [address] [place] [address]. [place] [address] [place] [address] Care Team Providers Care Supervisor Finishing Room Name Role Phone Unavailable Primary Care Provider Unavailabl e Encounter Details Date Type Department Care Team (Latest Contact Info) Description 08/23/2012 Abstract [facility] Social History Tobacco Use Types [...]
--- OUTSIDE RECORDS SUMMARY | 2024-07-29 17:44 | XMS_ITS | Encounter Summary ---
Author Organization [facility] Address [address] [place] [address]. [place] [address] [place] [address] Care Team Providers Care Gas Shovel Operator Name Role Phone Unavailable Primary Care Provider Unavailabl e Encounter Details Date Type Department Care Team (Latest Contact Info) Description 06/02/2012 Abstract [facility] Social History Tobacco Use [...]
--- OUTSIDE RECORDS SUMMARY | 2024-07-29 17:44 | XMS_ITS | Encounter Summary ---
Author Organization [facility] Address [address] [place] [address]. [place] [address] [place] [address] Care Team Providers Care Phys Ther Name Role Phone Blake Lindsey MD Primary Care Provider [phone] Encounter Details Date Type Department Care Team (Late st Contact Info) Description 09/04/2019 1:21 PM IRONER HAND - 09/04/2019 11:59 PM [facility] Hospital Encounter [facility] [address] [place], [place] [id number] Shelia Browning, BABY REG[employer] SALES CONSULTANT [address] [place] [address] Discharge Disposition: Home or Self Care (Routine [...] this encounter Medications at Time of Discharge atorvastatin 10 MG tablet Take 10 mg by mouth nightly. 03/02/2019 furosemide 20 MG tablet Take 20 mg by mouth daily. 02/23/2019 omeprazole 20 MG capsule Take 20 mg by mouth daily. 3 01/26/2019 QUEtiapine 50 MG tablet Take 50 mg by mouth nightly at bedtime. 0 02/07/2019 SUMAtriptan 50 MG tablet Take 50 mg by mouth as needed. 0 02/16/2019 albuterol sulfate HFA 108 (90 Base) MCG/ACT inhaler 10/14/2018 0 ALPRAZolam 0.5 MG tablet Take 0.5 mg by mouth 3 (three) times daily as needed. 0 10/21/2018 12/22/2020 buprenorphine 20 MCG/HR PATCH WEEKLY patch Place 20 mcg onto the skin once a week. 01/12/2019 02/23/2020 hydrOXYzine 25 MG tablet Take 25 mg by mouth 3 (three) times daily as needed for Anxiety. 01/12/2019 12/22/2020 lamotrigine 100 MG tablet Take 100 mg by mouth daily. 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 Interpreted By: Toy He MD, 09/05/2019 11:18 AM Narrative 09/05/2019 11:19 AM IRONER HAND Examination: Left hip radiographs Exam date/time: 09/04/2019 1:25 PM Reason For Exam: ??M25.552 ?? Posterior left hip pain for 2 months. ??No known injury. Comparison: None Technique: AP and oblique views of the left hip Findings: No fracture or subluxation. ??Mild arthritis superior aspect of tip joint. ??Mild arthritis left sacroiliac joint and symphysis pubis. ??Intrauterine device within the pelvis. ??Left pelvic calcifications, consistent with vascular calcifications. ===== Procedure Note Modesto He MD - 09/05/2019 Examination: Left hip radiographs Exam date/time: 09/04/2019 1:25 PM Reason For Exam: M25.552 Posterior left hip pain for 2 months. No known injury. Comparison: None Technique: AP and oblique views of the left hip Findings: No fracture or subluxation. Mild arthritis superior aspect oftip joint. Mild arthritis left sacroiliac joint and symphysis pubis.Intrauterine device within the pelvis. Left pelvic calcifications,consistent with vascular calcifications. 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 Interpreted By: Toy He MD, 09/05/2019 11:18 AM Shelia Browning BABY REGIST[employer] SALES CONSULTANT GENERAL IMAGING Final Resu lt documented in this encounter Visit Diagnoses Diagnosis Left hip pain Pain in joint, pelvic region and thigh documented in this encounter Care Teams Phys Ther Relationship Specialty Start Date End Date Blake Lindsey MD [address] [place] [address] PCP - General FAMILY PRACTICE 03/03/19 documented as of this encounter
--- OUTSIDE RECORDS SUMMARY | 2024-07-29 17:44 | XMS_ITS | Encounter Summary ---
Author Organization [facility] Address [address] [place] [address]. [place] [address] [place] [address] Care Team Providers Care Sweatband Shaper Name Role Phone Unavailable Primary Care Provider Unavailabl e Encounter Details Date Type Department Care Team (Late st Contact Info) Description 09/23/2012 Abstract [facility] [address] [place] [address] [place] [address] [address] Social History Tobacco Use Types [...]
--- OUTSIDE RECORDS SUMMARY | 2024-07-29 17:44 | XMS_ITS | Encounter Summary ---
Author Organization [facility] Address [address] [place] [address]. [place] [address] [place] [address] Care Team Providers Care Magazine Publisher Name Role Phone Blake Lindsey MD Primary Care Provider [phone] Reason for Referral * Imaging (Routine) - Closed Specialty Diagnoses / Procedures Referred By Contac t Referred To Contact RADIOLOGY Diagnoses Lumbago Procedures CT THOR SPINE WO CON Castillo Maldonado MD [address] [place] [address] Phone: tel: fax: Referral ID Status Reason Start Date Expiration Date Visits Re quested Visits Authorized [id number] Closed 09/05/2019 10/04/2020 1 1 OFF TENDER GLASS * Imaging (Routine) - Closed Specialty Diagnoses / Procedures Referred By Contac t Referred To Contact RADIOLOGY Diagnoses Lumbago Procedures CT CERV SPINE WO CON LTD Castillo Maldonado MD [address] [place] [address] Phone: tel: fax: Referral ID Status Reason Start Date Expiration Date Visits Re quested Visits Authorized [id number] Closed 09/05/2019 10/04/2020 1 1 OFF TENDER GLASS Reason for Visit * Imaging (Routine) - Closed Specialty Diagnoses / Procedures Referred By Ariel t Referred To Contact RADIOLOGY Diagnoses Lumbago Procedures CT CERV SPINE WO CON LTD Castillo Maldonado MD [address] [place] [address] Phone: tel: fax: Referral ID Status Reason Start Date Expiration Date Visits Re quested Visits Authorized [id number] Closed 09/05/2019 10/04/2020 1 1 Encounter Details Date Type Department Care Team (Latest Contact Info) Description 09/07/2019 2:00 PM CUT OFF TENDER GLASS - 09/07/2019 11:59 PM CUT OFF TENDER GLASS Hospital Encounter [facility] [address] [place] [address] Castillo Maldonado MD [address] [facility] [address] [place] [address] Discharge Disposition: Home or Self Care (Routine [...] Diagnosis Comments CT CERV SPINE WO CON LTD Routine 09/07/2019 2:30 PM CUT OFF TENDER GLASS Lumbago CT THOR SPINE WO CON Routine 09/07/2019 2:30 PM CUT OFF TENDER GLASS Lumbago documented in this encounter Results * CT THOR SPINE WO CON (09/07/2019 2:30 PM CUT OFF TENDER GLASS) Anatomical Region Laterality Modality Spine Computed Tomogra phy 09/08/2019 4:56 PM CUT OFF TENDER GLASS Impressions 09/08/2019 5:02 PM CUT OFF TENDER GLASS =====IMPRESSION:===== Postoperative changes spine. Exam is limited due to streak artifact from metallic rods and screws. Compression deformity of T6 of uncertain chronicity. Narrative 09/08/2019 5:02 PM CUT OFF TENDER GLASS Examination: CT scan of the thoracic spine without contrast Exam date/time: 09/07/2019 2:04 PM ?? Reason For Exam: ??Back pain, prior surgery ?? Comparison: None TECHNIQUE: Computed tomography of the thoracic spine was performed without IV contrast according to routine protocol without immediate complication. A dose lowering technique was used for this procedure, which may include, but is not limited to, dose reduction technique, automated exposure control, the use of iterative reconstruction, and ALARA (As Low As Reasonably Achievable) / Image Gently techniques. Findings: Compression deformity of T6 is seen of uncertain chronicity. Posterior fixation rods are seen with pedicular screws extending to T12 on the right and T11 on the left. . Exam is limited due to streak artifact from indwelling metallic devices. Procedure Note Ben Reese MD - 09/08/2019 Examination: CT scan of the thoracic spine without contrast Exam date/time: 09/07/2019 2:04 PM Reason For Exam: Back pain, prior surgery Comparison: None TECHNIQUE: Computed tomography of the thoracic spine was performedwithout IV contrast according to routine protocol without immediate complication.A dose lowering technique was used for this procedure, which may include,but is not limited to, dose reduction technique, automated exposure control, the use of iterative reconstruction, and ALARA (As Low As Reasonably Achievable) / Image Gently techniques. Findings: Compression deformity of T6 is seen of uncertain chronicity. Posterior fixation rods are seen with pedicular screws extending to T12on the right and T11 on the left. . Exam is limited due to streak artifact from indwelling metallic devices. =====IMPRESSION:===== Postoperative changes spine. Exam is limited due to streak artifactfrom metallic rods and screws. Compression deformity of T6 of uncertain chronicity. Castillo Maldonado MD CT Final Result * CT CERV SPINE WO CON [facility] (09/07/2019 2:30 PM CUT OFF TENDER GLASS) Anatomical Region Laterality Modality Spine Computed Tomogra phy 09/08/2019 4:41 PM CUT OFF TENDER GLASS Impressions 09/08/2019 4:56 PM CUT OFF TENDER GLASS =====IMPRESSION:===== ?? 1. ??Postoperative changes cervical spine. 2. ??No definite or obvious thecal sac narrowing is noted. Narrative 09/08/2019 4:56 PM CUT OFF TENDER GLASS EXAMINATION: CT Cervical Spine without contrast. REASON FOR EXAM: ??Neck and back pain, chronic, history of fusion 2012. Apparent 2014 after fall with broken derek. ?? COMPARISON: None TECHNIQUE: Axial CT images of the cervical spine are obtained without the use of IV contrast agent. ??Subsequent coronal and sagittal reformatted sequences are created for evaluation. ?? A dose lowering technique was used for this procedure, which may include, but is not limited to, dose reduction technique, automated exposure control, the use of iterative reconstruction, and ALARA (As Low As Reasonably Achievable) / Image Gently techniques. FINDINGS: Postoperative change from C4 through T2 is noted. The T2 levels incompletely visualized on present study. Posterior fixation rods are seen. These appear intact in their visualized portions. No evidence of spondylolisthesis is seen. There is mild kyphosis noted. Exam is somewhat limited due to streak artifact from implanted metallic devices. No definite or obvious thecal sac or neuroforaminal narrowing is seen. Procedure Note Ben Reese MD - 09/08/2019 EXAMINATION: CT Cervical Spine without contrast. REASON FOR EXAM: Neck and back pain, chronic, history of fusion 2012. Apparent 2014 after fall with broken derek. COMPARISON: None TECHNIQUE: Axial CT images of the cervical spine are obtained withoutthe use of IV contrast agent. Subsequent coronal and sagittal reformatted sequences are created for evaluation. A dose lowering technique wasused for this procedure, which may include, but is not limited to, dose reduction technique, automated exposure control, the use of iterative reconstruction, and ALARA (As Low As Reasonably Achievable) / ImageGently techniques. FINDINGS: Postoperative change from C4 through T2 is noted. The L2kkzsen incompletely visualized on present study. Posterior fixation rods areseen. These appear intact in their visualized portions. No evidence of spondylolisthesis is seen. There is mild kyphosis noted. Exam issomewhat limited due to streak artifact from implanted metallic devices. Nodefinite or obvious thecal sac or neuroforaminal narrowing is seen. =====IMPRESSION:===== 1. Postoperative changes cervical spine. 2. No definite or obvious thecal sac narrowing is noted. Castillo Maldonado MD CT Final Result documented in this encounter Visit Diagnoses Diagnosis Lumbago documented in this encounter Care Teams Magazine Publisher Relationship Specialty Start Date End Date Blake Lindsey MD [address] [address] PCP - General FAMILY PRACTICE 03/03/19 documented as of this encounter
--- OUTSIDE RECORDS SUMMARY | 2024-07-29 17:44 | XMS_ITS | Encounter Summary ---
Author Organization [facility] Address [address] [place] [address]. [place] [address] [place] [address] Care Team Providers Care 3D Artist Name Role Phone None, Provider Primary Care Provider Unavaila ble Reason for Visit * Reason Comments Chest Pain Breathing Problem Encounter Details Date Type Department Care Team (Late st Contact Info) Description 02/19/2019 1:04 PM CDT - 02/19/2019 6:30 PM CDT Emergency [facility] [place] [address] Nathan Dior MD [address] [address] Chest Pain; Breathing Problem Discharge Disposition: Home or Self Care (Routine [...] Sign Reading Time Taken Comments Blood Pressure 118/77 02/19/2019 5:49 PM CDT Pulse 73 02/19/2019 5:49 PM CDT Temperature 36.9 ??C (98.4 ??F) 02/19/2019 3:21 PM CD T Respiratory Rate 22 02/19/2019 5:49 PM CDT Oxygen Saturation 99% 02/19/2019 5:49 PM CDT Inhaled Oxygen Concentration - - Weight 94.3 kg (208 lb) 02/19/2019 1:07 PM CDT Height 160 cm (5' 3 ) 02/19/2019 1:07 PM CDT Body Mass Index 36.85 02/19/2019 1:07 PM CDT documented in this encounter Discharge Instructions * Attachments The following attachments cannot be sent through Care Everywhere. * Shortness of Breath (Dyspnea) Discharge Instructions (Syriac) documented in this encounter Medications at Time of Discharge omeprazole 20 MG capsule Take 20 mg [...] 100 mg by mouth daily. 01/04/2019 02/04/2023 predniSONE 20 MG tablet Take 3 tablets (60 mg total) by mouth daily for 4 days. 12 tablet 02/19/2019 02/23/2019 documented as of this encounter ED Notes * Ellis Jhaveri RN - 02/19/2019 5:20 PM CDT Bed adjusted to help patient's chronic back pain. She states it feels much better after adjustment.Lights dimmed, call lights within reach, patient watching television. Side rails up. * Shelia Shaw RN - 02/19/2019 1:32 PM CDT Pt resting on stretcher, watching tv and texting on cell phone. Call light remains within reach. Ptdoes not appear in any acute distress. Denies any additional needs at this time. * Ellis Jhaveri RN - 02/19/2019 1:15 PM CDT Patient reports shortness of breath, chest pain, pressure, and palpitations starting 2 days ago. [facility] Patient currently has ear infections and takes antibiotics. * Nathan Dior MD - 02/19/2019 1:14 PM CDT Chief Complaint Chief Complaint Patient presents with ??? Chest Pain ??? Breathing Problem History of Present Illness 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 mail censor used: No Chest Pain Associated symptoms: cough (dry), palpitations and shortness of breath Associated symptoms: no abdominal pain, no dizziness, no fever, no headache and no nausea Breathing Problem Associated symptoms: chest pain, cough (dry) and shortness of breath Associated symptoms: no abdominal pain, no diarrhea, no fever, no headaches, no nausea, no rash andno sore throat 48-year-old female with a pmh of COPD and asthma on nebulizer and inhalers is presenting for worsening SOB and fluttering in the chest that began 3 days ago. Patient reports she feels like something is sitting on her chest. She states her SOB and fluttering seems to be exacerbated when ambulating. Patient recently had an ear infection and is currently 4 days into her antibiotics. Dry cough noted o tessa the past 3 days. She denies any sore throat. Medical History ALLERGIES: Allergies Allergen Reactions ??? Penicillins Rash and Unknown ??? Amoxicillin Rash ??? Codeine Other (see comment) Passes out, Passes out ??? Epinephrine Other (see comment) When injected in mouth for dental procedures, makes extremities go numb MEDICATIONS: Prior to Admission medications Not on File PAST MEDICAL HISTORY: Past Medical History: Diagnosis Date ??? Arthritis ??? COPD (chronic obstructive pulmonary disease) (CMS/HCC) ??? Hodgkin's disease (CMS/HCC) PAST SURGICAL HISTORY: Past Surgical History: Procedure Laterality Date ??? BACK SURGERY spinal fusion ??? KNEE SURGERY Bilateral FAMILY HISTORY: No family history on file. SOCIAL HISTORY: Social History Tobacco Use ??? Smoking status: Former Smoker Last attempt to quit: 1997 Years since quittin.5 ??? Smokeless tobacco: Never Used Substance Use Topics ??? Alcohol use: Yes Alcohol/week: 1.0 oz Types: 1 Shots of liquor per week ??? Drug use: No Review of Systems Review of Systems Constitutional: Negative for chills and fever. HENT: Negative for sore throat. Eyes: Negative for pain. Respiratory: Positive for cough (dry) and shortness of breath. Cardiovascular: Positive for chest pain and palpitations. Gastrointestinal: Negative for abdominal pain, diarrhea and nausea. Endocrine: Negative for polyuria. Genitourinary: Negative for dysuria. Skin: Negative for rash. Neurological: Negative for dizziness and headaches. Psychiatric/Behavioral: Negative for behavioral problems. Physical Exam Filed Vitals: 02/19/19 1530 02/19/19 1600 02/19/19 1700 02/19/19 1749 BP: 125/75 127/80 118/77 Pulse: 76 71 78 73 Resp: 18 22 22 Temp: TempSrc: SpO2: 96% 95% 99% 99% Weight: Height: Physical Exam Constitutional: She is oriented to person, place, and time. She appears well- developed and well-nourished. HENT: Head: Normocephalic and atraumatic. Mouth/Throat: Oropharynx is clear and moist. Eyes: Conjunctivae and EOM are normal. Neck: Neck supple. Cardiovascular: Normal rate and regular rhythm. Pulmonary/Chest: Effort normal. No stridor. Coarse breath sounds bilaterally Abdominal: Soft. Bowel sounds are normal. There is no tenderness. Musculoskeletal: She exhibits no deformity. No calf tenderness or edema Neurological: She is alert and oriented to person, place, and time. Skin: Skin is warm and dry. Psychiatric: She has a normal mood and affect. Nursing note and vitals reviewed. Diagnostic Studies / Procedures ELECTROCARDIOGRAMS: Results for orders placed or performed during the hospital encounter of 02/19/19 [address] [facility] [address] [place] [address] Test Date: 2019-02-19 Pat Name: PARK ALEJANDRA Department: Room: [place] [address] Gender: Female Issuing Operator: : 1970 Requested By: NATHAN DIOR Order Number: [id number] Reading MD: Measurements Intervals [place] Rate: 75 P: 15 OH: 115 QRS: 27 QRSD: 99 T: 28 QT: 359 QTc: 403 Interpretive Statements SINUS RHYTHM WITH SHORT [place] INTERVAL No previous ECG available for comparison 1308 EKG by my interpretation demonstrates normal sinus rhythm at [address] or t wave changes. LABORATORY STUDIES: Results for orders placed or performed during the hospital encounter of 02/19/19 CBC W/DIFF AUTOMATED Result Value Ref Range WBC 8.7 4.5 - 11.0 x10'3/uL RBC 4.55 4.20 - 5.40 x10'6/uL HGB 14.6 12.0 - 16.0 G/DL HCT 42.0 38.0 - 48.0 % MCV 92.3 80.0 - 94.0 FL MCH 32.1 (H) 27.0 - 31.0 PG MCHC 34.8 32.0 - 36.0 G/DL RDW 12.6 11.5 - 14.5 % PLT 213 130 - 400 x10'3/uL MPV 8.7 (L) 9.3 - 12.2 FL DIFFERENTIAL TYPE AUTOMATED DIFFERENTIAL NEUTROPHILS 60.5 % LYMPHOCYTES 27.7 % MONOCYTES 6.3 % EOSINOPHILS 4.6 % BASOPHILS 0.6 % IMMATURE GRANS 0.3 % ABS. NEUTROPHILS TOTAL 5.25 1.80 - 7.70 x10'3/uL ABS. LYMPHOCYTES 2.41 1.00 - 4.80 x10'3/uL ABS. MONOCYTES 0.55 0.24 - 0.86 x10'3/uL ABS. EOSINOPHILS 0.40 (H) 0.04 - 0.36 x10'3/uL ABS. BASOPHILS 0.05 0.01 - 0.08 x10'3/uL ABS. IMMATURE GRANULOCYTES 0.03 0.00 - 0.49 x10'3/uL COMPREHENSIVE METABOLIC PANEL Result Value Ref Range GLUCOSE 104 (H) 70 - 99 MG/DL BUN 6 (L) 7 - 18 MG/DL CREATININE 0.74 0.55 - 1.02 MG/DL SODIUM 143 136 - 145 MMOL/L POTASSIUM 3.3 (L) 3.5 - 5.1 MMOL/L CHLORIDE 111 (H) 100 - 108 MMOL/L CO2 24.6 21 - 32 MMOL/L CALCIUM 9.2 8.5 - 10.1 MG/DL TOTAL BILIRUBIN 0.4 0.2 - 1.2 MG/DL TOTAL PROTEIN 7.1 6.4 - 8.2 G/DL ALBUMIN 3.5 3.4 - 5.0 G/DL AST 33 15 - 37 U/L ALT 51 14 - 55 U/L ALK PHOS 91 50 - 136 U/L ANION GAP 7.4 5 - 15 MMOL/L BUN CREATININE RATIO 8.2 6 - 26 A/G RATIO 1.0 1.0 - 2.0 RATIO eGFR Non-Afr. Amer. >90 >90 ML/MIN/1.73 M2 eGFR Afr. Amer. >90 >90 ML/MIN/1.73 M2 TROPONIN, QUANT Result Value Ref Range TROPONIN I <0.015 <0.045 ng/mL. PROCALCITONIN (PCT) Result Value Ref Range Procalcitonin <0.05 <0.5 NG/ML D-DIMER, QUANTITATIVE Result Value Ref Range D-DIMER <150 0 - 230 D DU ng/mL TROPONIN, QUANT Result Value Ref Range TROPONIN I <0.015 <0.045 ng/mL. IMAGING STUDIES XR CHEST PORTABLE Final Result by User, [id number] (02/19 3563) SINGLE VIEW OF THE CHEST Clinical history: Chest pain Comparison: None A single view of the chest demonstrates the cardiac silhouette to be within normal limits for size. Starr rods are noted throughout the thoracic spine. The pulmonary vessels are normally distributed. The Lungs are clear. No consolidations or effusions are seen. IMPRESSION: No acute findings Course / Medical Decision Making [facility] Diagnosis management comments: 48-year-old female presents w/ SOB and chest fluttering. Pulse oximetry interpreted by me: 97% on room air. Impression normal. ED Course as of Feb 19 1759 Sun Feb 19, 2019 1357 [place] Heart Score 3 [BH] 1752 EKG normal. TNI neg x 2. K+ mildly low, which was replaced with po. Pt has h/o COPD and suspect mild COPD exacerbation. Given neb tx and iv solumedrol. CXR clear and vitals stable, therefore appropriate for outpt tx. Will give a course of steroids. Pt already on abx for ear infection. Discussed results with pt who is agreeable with plan. [] ED Course User Index [BH] Nathan Dior MD Clinical Impression Dyspnea (Primary) COPD (chronic obstructive pulmonary disease) (CMS/HCC) Disposition: Discharge I, Yanelis Neil, acting as a scribe, am personally taking down the notes in the presence of Dr. Nathan Dior MD. Take no action on this note until reviewed and authenticated by the physician. Nathan Dior MD 02/19/19 1802 * Ellis Jhaveri RN - 02/19/2019 1:04 PM CDT Bed: 17 Expected date: Expected time: Means of arrival: Comments: 1242 documented in this encounter Plan of Treatment Not on file documented as of this encounter Procedures Procedure Name Priority Date/Time Associated Diagnosis Comments TROPONIN, QUANT STAT 02/19/2019 4:44 PM CDT XR CHEST PORTABLE STAT 02/19/2019 2:3 0 PM CDT PROCALCITONIN (PCT) STAT 02/19/2019 1 :17 PM CDT COMPREHENSIVE METABOLIC PANEL STAT 02/19/2019 1:17 PM CDT D-DIMER, QUANTITATIVE STAT 02/19/2019 1:17 PM CDT CBC W/DIFF AUTOMATED STAT 02/19/2019 1:17 PM CDT TROPONIN, QUANT STAT 02/19/2019 1:17 PM CDT ECG 12-LEAD STAT 02/19/2019 1:08 PM CDT documented in this encounter Results * TROPONIN, QUANT (02/19/2019 4:44 PM CDT) TROPONIN I <0.015 <0.045 ng/mL. 02/19/2019 5:26 PM CDT [facility] Comment: HIGH DOSES OF BIOTIN MAY INTERFERE WITH THIS TEST RESULT. CORRELATION TO CLINICAL HISTORY AND PRESENTATION RECOMMENDED. 02/19/2019 4:44 PM CDT Nathan Dior MD LABORATORY Final Result [facility] [address] [place] [address], [place] [phone] * XR CHEST PORTABLE (02/19/2019 2:30 PM CDT) Anatomical Region Laterality Modality Chest Fluoroscopy 02/19/2019 2:31 PM CDT Impressions 02/19/2019 2:31 PM CDT IMPRESSION: No acute findings Narrative 02/19/2019 2:31 PM CDT SINGLE VIEW OF THE CHEST Clinical history: Chest pain Comparison: None A single view of the chest demonstrates the cardiac silhouette to be within normal limits for size. Starr rods are noted throughout the thoracic spine. The pulmonary vessels are normally distributed. The Lungs are clear. No consolidations or effusions are seen. Procedure Note Blake Hills MD - 02/19/2019 SINGLE VIEW OF THE CHEST Clinical history: Chest pain Comparison: None A single view of the chest demonstrates the cardiac silhouette to bewithin normal limits for size. Starr rods are noted throughout thethoracic spine. The pulmonary vessels are normally distributed. The Lungs areclear. No consolidations or effusions are seen. IMPRESSION: No acute findings us Nathan Dior MD GENERAL IMAGING Final Result * D-DIMER, QUANTITATIVE (02/19/2019 1:17 PM CDT) D-DIMER <150 0 - 230 D DU ng/mL 02/19/2019 1:46 PM CDT [facility] Comment: TESTING PERFORMED ON Medical Referral Source TOP 300 ANALYZER. NOTE: RESULTS OF THIS TEST SHOULD ALWAYS BE INTERPRETED IN CONJUNCTION WITH THE PATIENT'S MEDICAL HISTORY, CLINICAL PRESENTATION AND OTHER FINDINGS. CLINICAL DIAGNOSIS SHOULD NOT BE BASED ON THE RESULT OF D-DIMER ALONE. THE MEASUREMENT OF D-DIMER SHOULD NOT BE USED AN AID IN THE DIAGNOSIS OF VTE IN PATIENTS WITH: THERAPEUTIC DOSE ANTICOAGULANT THERAPY FOR >24HRS, FIBRINOLYTIC THERAPY WITHIN PREVIOUS 7 DAYS, TRAUMA OR SURGERY WITHIN PREVIOUS 4 WEEKS, DISSEMINATED MALIGNANCIES, AORTIC ANEURYSM, SEPSIS, SEVERE INFECTIONS, PNEUMONIA, SEVERE SKIN INFECTIONS, LIVER CIRRHOSIS OR . 02/19/2019 1:17 PM CDT us Nathan Dior MD LABORATORY Final Result Performing Organization Address [facility]/ZIP Co de Phone Number [facility] [address] [place] [id number], [place] [phone] * PROCALCITONIN (PCT) (02/19/2019 1:17 PM CDT) Procalcitonin <0.05 <0.5 NG/ML 02/19/2019 4:24 PM CDT [facility] 02/19/2019 1:17 PM CDT us Nathan Dior MD LABORATORY Final Result [facility] [address] [place] [address], * TROPONIN, QUANT (02/19/2019 1:17 PM CDT) TROPONIN I <0.015 <0.045 ng/mL. 02/19/2019 1:52 PM CDT [facility] Comment: HIGH DOSES OF BIOTIN MAY INTERFERE WITH THIS TEST RESULT. CORRELATION TO CLINICAL HISTORY AND PRESENTATION RECOMMENDED. 02/19/2019 1:17 PM CDT Nathan Dior MD LABORATORY Final Result Performing Organization Address [facility]/State/[facility] Co de Phone Number [facility] [address] [place] [address], * (ABNORMAL) COMPREHENSIVE METABOLIC PANEL (02/19/2019 1:17 PM CDT) GLUCOSE 104(H) 70 - 99 MG/DL 02/19/2019 1:52 PM CDT [facility] BUN 6(L) 7 - 18 MG/DL 02/19/2019 1:52 PM CDT [facility] CREATININE S/P/B 0.74 0.55 - 1.02 MG/DL 02/19/2019 1:52 PM CDT [facility] SODIUM S/P/B 143 136 - 145 MMOL/L 02/19/2019 1:52 PM CDT [facility] POTASSIUM S/P/B 3.3(L) 3.5 - 5.1 MMOL/L 02/19/2019 1:52 PM CDT [facility] CHLORIDE S/P/B 111(H) 100 - 108 MMOL/L 02/19/2019 1:52 PM CDT [facility] CO2 24.6 21 - 32 MMOL/L 02/19/2019 1:52 PM T [facility] CALCIUM S/P/B 9.2 8.5 - 10.1 MG/DL 02/19/2019 1:52 PM T [facility] BILIRUBIN TOTAL S/P/B 0.4 0.2 - 1.2 MG/DL 02/19/2019 1:52 PM T [facility] TOTAL PROTEIN S/P/B 7.1 6.4 - 8.2 G/DL 02/19/2019 1:52 PM T [facility] ALBUMIN S/P/B 3.5 3.4 - 5.0 G/DL 02/19/2019 1:52 PM T [facility] AST 33 15 - 37 U/L 02/19/2019 1:52 PM T [facility] ALT 51 14 - 55 U/L 02/19/2019 1:52 PM T [facility] ALKALINE PHOSPHATASE S/P/B 91 50 - 136 U/L 02/19/2019 1:52 PM T [facility] ANION GAP 7.4 5 - 15 MMOL/L 02/19/2019 1:52 PM T [facility] BUN CREATININE RATIO 8.2 6 - 26 02/19/2019 1:52 PM T [facility] A/G RATIO 1.0 1.0 - 2.0 RATIO 02/19/2019 1:52 PM T [facility] EGFR NON-AFR. AMER. >90 >90 ML/MIN/1.7 3 M2 02/19/2019 1:52 PM T [facility] EGFR AFR. AMER. >90 >90 ML/MIN/1.7 3 M2 02/19/2019 1:52 PM T [facility] Comment: NOTE: eGFR is not calculated for patients <18 years of age. This is an estimated GFR (CKD EPI) and should not be used for calculating drug doses. 02/19/2019 1:17 PM CDT us Nathan Dior MD LABORATORY Final Result [facility] [address] [place] [address], [place] [phone] * (ABNORMAL) CBC W/DIFF AUTOMATED (02/19/2019 1:17 PM CDT) WBC 8.7 4.5 - 11.0 x10'3/uL 02/19/2019 1:32 PM CDT [facility] RBC 4.55 4.20 - 5.40 x10'6/uL 02/19/2019 1:32 PM CDT [facility] HGB 14.6 12.0 - 16.0 G/DL 02/19/2019 1:32 PM CDT [facility] HCT 42.0 38.0 - 48.0 % 02/19/2019 1:32 PM CDT [facility] MCV 92.3 80.0 - 94.0 FL 02/19/2019 1:32 PM CDT [facility] MCH 32.1(H) 27.0 - 31.0 PG 02/19/2019 1:32 PM CDT [facility] MCHC 34.8 32.0 - 36.0 G/DL 02/19/2019 1:32 PM CDT [facility] RDW 12.6 11.5 - 14.5 % 02/19/2019 1:32 PM CDT [facility] PLT 213 130 - 400 x10'3/uL 02/19/2019 1:32 PM CDT [facility] MPV 8.7(L) 9.3 - 12.2 FL 02/19/2019 1:32 PM CDT [facility] DIFFERENTIAL TYPE AUTOMATED DIFFERENTIAL 02/19/2019 1:32 PM CDT [facility] NEUTROPHILS % 60.5 % 02/19/2019 1:32 PM CDT [facility] LYMPHOCYTES % 27.7 % 02/19/2019 1:32 PM CDT [facility] MONOCYTES % 6.3 % 02/19/2019 1:32 PM CDT [facility] EOSINOPHILS 4.6 % 02/19/2019 1:32 PM CDT [facility] BASOPHILS 0.6 % 02/19/2019 1:32 PM CDT [facility] IMMATURE GRANS % 0.3 % 02/20/20 19 1:32 PM CDT [facility] ABS. NEUTROPHILS TOTAL 5.25 1.80 - 7.70 x10'3/uL 02/19/2019 1:32 PM CDT [facility] ABS. LYMPHOCYTES 2.41 1.00 - 4.80 x10'3/uL 02/19/2019 1:32 PM CDT [facility] ABS. MONOCYTES 0.55 0.24 - 0.86 x10'3/uL 02/19/2019 1:32 PM T [facility] ABS. EOSINOPHILS 0.40(H) 0.04 - 0.36 x10'3/uL 02/19/2019 1:32 PM CDT [facility] ABS. BASOPHILS 0.05 0.01 - 0.08 x10'3/uL 02/19/2019 1:32 PM [facility] ABS. IMMATURE GRANULOCYTES 0.03 0.00 - 0.49 x10'3/uL 02/19/2019 1:32 PM [facility] 02/19/2019 1:17 PM CDT us Nathan Dior MD LABORATORY Final Result [facility] [address] [place] [address], * ECG 12 lead (02/19/2019 1:08 PM CDT) 02/19/2019 1:08 PM CDT Narrative [facility] - 02/19/2019 10:59 PM CDT [facility] [address] ? Test Date: ?2019-02-19 Pat Name: ? PARK ALEJANDRA ? Department: ? Room: ? [id number] Gender: ? Female ? Issuing Operator: ?? JH : ?[id number] ? Requested By: NATHAN DIOR Order Number: [id number] ? Reading : ?? Ammon Shah ? Measurements Intervals ?[place] ? Rate: ? 75 ? P: ?15 [place]: ? 115 ?QRS: ?27 QRSD: ? 99 ? T: ?28 QT: ? 359 ? QTc: ?403 ? Interpretive Statements SINUS RHYTHM WITH SHORT [place] INTERVAL No previous ECG available for comparison Procedure Note Ammon Shah MD - 02/19/2019 [facility] [place] [address] [facility] Test Date: 2019-02-19 Pat Name: PARK ALEJANDRA Department: Room: [id number] Gender: Female Issuing Operator: : 1970 Requested By: NATHAN DIOR Order Number: [id number] Reading MD: Ammon Shah Measurements Intervals [place] Rate: 75 P: 15 OH: 115 QRS: 27 QRSD: 99 T: 28 QT: 359 QTc: 403 Interpretive Statements SINUS RHYTHM WITH SHORT [place] INTERVAL No previous ECG available for comparison us Nathan Dior MD ECG ORDERABLES Final Result [facility] documented in this encounter Visit Diagnoses Diagnosis Dyspnea- Primary Other dyspnea and respiratory abnormality COPD (chronic obstructive pulmonary disease) ([facility]/H[facility]) Chronic airway obstruction, not elsewhere classified documented in this encounter Administered Medications Inactive Administered Medications - up to 3 most recent administrations Medication Order MAR Action Action Date Dose Rate Site aspirin chewable tablet 324 mg 324 mg, Oral, Once, 1 dose, On 02/19/19 at 1345 Given 02/19/2019 1:36 PM CDT 324 mg ipratropium-albuterol (DUONEB) 0.5-2.5 (3) MG/3ML nebulizer solution 3 mL 3 mL, Nebulization, Once, 1 dose, On 02/19/19 at 1345 Given 02/19/2019 1:42 PM CDT 3 mLs methylPREDNISolone sodium succinate (SOLU-MEDROL) injection 80 mg 80 mg, Intravenous, Once, 1 dose, On 02/19/19 at 1715 Given 02/19/2019 5:14 PM CDT 80 mg potassium chloride CR (K-TAB) tablet 40 mEq 40 mEq, Oral, Once, 1 dose, On 02/19/19 at 1600, Do not break, chew, or crush. Given 02/19/2019 4:17 PM CDT 40 mEq documented in this encounter Active and Recently Administered Medications Times are shown in CDT. Scheduled Medication Order 02/17/2019 02/18/2019 02/19/2019 aspirin chewable tablet 324 mg (COMPLETED) 324 mg, Oral, Once, 1 dose, On 02/19/19 at 1345 1336 (Given - Provid er: Shelia Shaw RN) ipratropium-albuterol (DUONEB) 0.5-2.5 (3) MG/3ML nebulizer solution 3 mL (COMPLETED) 3 mL, Nebulization, Once, 1 dose, On 02/19/19 at 1345 1342 (Given - Provid er: Wai Jaeger RRT) methylPREDNISolone sodium succinate (SOLU-MEDROL) injection 80 mg (COMPLETED) 80 mg, Intravenous, Once, 1 dose, On 02/19/19 at 1715 1714 (Given - Provid er: Ellis Jhaveri RN) potassium chloride CR (K-TAB) tablet 40 mEq (COMPLETED) 40 mEq, Oral, Once, 1 dose, On 02/19/19 at 1600, Do not break, chew, or crush. 1617 (Given - Provid er: Ellis Jhaveri RN) documented in this encounter Care Teams 3D Artist Relationship Specialty Start Date End Date None, Provider, PCP - General 02/19/19 03/02/19 documented as of this encounter
--- OUTSIDE RECORDS SUMMARY | 2024-07-29 17:44 | XMS_ITS | Encounter Summary ---
Author Organization [facility] Address [address] [place] [address]. [place] [address] [place] [address] Care Team Providers Care Shackler Name Role Phone Blake Lindsey MD Primary Care Provider Reason for Visit * Reason Comments Musculoskeletal Problem Encounter Details Date Type Department Care Team (Late st Contact Info) Description 03/03/2019 4:21 PM CDT - 03/03/2019 9:46 PM CDT Emergency [facility] [place] [address] Lauri Menendez PA-C [address] [place] [address] Musculoskeletal Problem Discharge Disposition: Home or Self Care [...] Sign Reading Time Taken Comments Blood Pressure 119/83 03/03/2019 8:30 PM CDT Pulse 96 03/03/2019 8:30 PM CDT Temperature 36.8 ??C (98.2 ??F) 03/03/2019 8:30 PM CD T Respiratory Rate 20 03/03/2019 8:30 PM CDT Oxygen Saturation 99% 03/03/2019 8:30 PM CDT Inhaled Oxygen Concentration - - Weight 95.2 kg (209 lb 14.1 oz) 03/03/2019 4:28 PM CDT Height 160 cm (5' 3 ) 03/03/2019 4:28 PM CDT Body Mass Index 37.18 03/03/2019 4:28 PM CDT documented in this encounter Discharge Instructions * Discharge Instructions* Lauri Menendez PA-C - 03/03/2019 9:30 PM CDT I recommend you contact your primary care provider on Wednesday to establish a recheck office visit. You should also have your blood work rechecked in the next week to ensure that your potassium is normalized. If you have any worsening or persistent symptoms please return to the ER immediately. We diddiscuss changing her medications such as decreasing the dose of your Lasix, I recommend decreasing it to half of a tablet every other day. Begin taking her potassium supplement as well. Please contact your primary care provider before making any further changes. Follow-up with your primary care provider as directed for recheck. If you are unable to follow-up you may return to the emergency department if you experience persistent or worsening symptoms. If youfail to follow-up you may risk worsening symptoms that could result in organ damage, organ failure,permanent injury/disability and possibly . If you were prescribed pain medication, use cautionwith this as it may induce drowsiness. Do not operate machinery or drive while using pain medications. Take all your medications as directed or as prescribed. [employer] cares very much for your health and safety, and follow up is very important, even if you are feeling well. If you are having difficulty making a follow up appointment or getting access to your follow up appointment, you may return at any time to the emergency department for further assistance and recheck. * Attachments The following attachments cannot be sent through Care Everywhere. * High Potassium Diet (Danish) * Hypokalemia Discharge Instructions (Danish) documented in this encounter Medications at Time [...] 100 mg by mouth daily. 01/04/2019 02/04/2023 potassium chloride 20 MEQ packet Take 1 packet by mouth 2 (two) times daily for 10 days. 20 packet 03/03/2019 03/13/2019 documented as of this encounter ED Notes * Lauri Menendez PA-C - 03/03/2019 5:22 PM CDT [place], [place] EMERGENCY DEPARTMENT ENCOUNTER Chief Complaint Chief Complaint Patient presents with ??? Musculoskeletal Problem History of Present Illness Park Peterson is a 48-year-old female presents to ED for evaluation of hand and feet tingling and cramping for one hour prior to arrival. Patient also reports slurred speech. Pt states she was outside cleaning a storage unit when these symptoms started. Pt reports a history of episodic hypokalemia (4 episodes this year), where she has had these same symptoms and resolved with potassium. Reports PCP does not know cause of hypokalemia. Pt is on lasix 20 mg every other day and was recently taking prednisone. Pt has a history of COPD, [place], and asthma. Medical History ALLERGIES: Allergies Allergen Reactions ??? Penicillins Rash and Unknown ??? Amoxicillin Rash ??? Codeine Other (see comment) Passes out, Passes out ??? Epinephrine Other (see comment) When injected in mouth for dental procedures, makes extremities go numb MEDICATIONS: Prior to Admission medications Medication Sig Start Date End Date Taking? Authorizing Provider buprenorphine 20 MCG/HR PATCH WEEKLY patch Place 20 mcg onto the skin once a week. 01/12/19 Yes Doc Abstract hydrOXYzine 25 MG tablet Take 25 mg by mouth 3 (three) times daily as needed for Anxiety. 01/12/19 Yes Doc Abstract lamotrigine 100 MG tablet Take 100 mg by mouth daily. 01/04/19 Yes Doc Abstract potassium chloride 20 MEQ packet Take 1 packet by mouth 2 (two) times daily for 10 days. 03/03/19 03/13/19 Yes Lauri Menendez PA-C albuterol sulfate HFA 108 (90 Base) MCG/ACT inhaler 10/14/18 Doc Abstract ALPRAZolam 0.5 MG tablet Take 0.5 mg by mouth 3 (three) times daily as needed. 10/21/18 Doc Abstract atorvastatin 10 MG tablet Take 10 mg by mouth nightly. 03/02/19 Doc Abstract furosemide 20 MG tablet Take 20 mg by mouth daily. 02/23/19 Doc Abstract omeprazole 20 MG capsule Take 20 mg by mouth daily. 01/26/19 Doc Abstract QUEtiapine 50 MG tablet Take 50 mg by mouth nightly at bedtime. 02/07/19 Doc Abstract SUMAtriptan 50 MG tablet Take 50 mg by mouth as needed. 02/16/19 Doc Abstract PAST MEDICAL HISTORY: Past Medical [...] Review of Systems Review of Systems Constitutional: Denies fever, chills Skin: Denies rash. HEENT: Denies sore throat or ear pain. Respiratory: Denies shortness of breath. Cardiovascular: Denies chest pain, palpitations or swelling. GI: Denies abdominal pain, nausea, vomiting, or diarrhea. : Denies dysuria, urinary frequency. Musculoskeletal: Denies back pain/joint pain Neurologic: Denies tingling or sensory changes. Psychiatric: Denies changes in mood See HPI for further details. All systems negative except as marked. Physical Exam Filed Vitals: 03/03/19 1853 03/03/19 1915 03/03/19 1945 03/03/192029 BP: (!) 112/91 123/87 119/83 Pulse: 117 105 96 96 Resp: 20 20 20 20 Temp: 98.2 ??F (36.8 ??C) TempSrc: Oral SpO2: 96% 98% 99% Weight: Height: Physical Exam Constitutional: Well developed, No acute distress, Non-toxic appearance. Appears stated age Integument: Warm, Dry, No erythema, No rash. HEENT: Normocephalic, Atraumatic, Conjunctiva normal Neck- Normal range of motion, Supple Back- No tenderness Respiratory: Normal breath sounds, No respiratory distress Cardiovascular: Normal heart rate, Normal rhythm GI: Bowel sounds normal, Soft, No tenderness Musculoskeletal: Good ROM, no deformities noted Neurologic: Alert & oriented x 3, No focal deficits noted. Cranial nerves II through XII intact, 5 out of 5 strength upper and lower extremities, sensation intact throughout. 5 out of 5 quality assurance lead strength, no ataxia, heel to miller intact, able to ambulate on heelsand toes without assistance. DTR 2+ bilat upper/lower extremities and symmetric. Strength BUE/BLE 4/5 and symmetric. No slurring of speech noted on exam. Psychiatric: Affect normal, Judgment normal, Mood normal. /pelvic: Deferred Diagnostic Studies / Procedures ELECTROCARDIOGRAMS: Results for orders placed or performed during the hospital encounter of 03/03/19 ECG 12 lead Narrative [facility] Test Date: 2019-03-03 Pat Name: PARK PETERSON Department: Room: [id number] Gender: Female Chief Engineer Research: danis BAUTISTAB: 1970 Requested By: LAURI MENENDEZ Order Number: [id number] Reading MD: Measurements Intervals [place] Rate: 112 P: 28 WV: 120 QRS: 10 QRSD: 89 T: 32 QT: 334 QTc: 457 Interpretive Statements SINUS TACHYCARDIA ABNORMAL RHYTHM ECG Compared to ECG 02/19/2019 13:08:51 Sinus rhythm no longer present Short WV interval no longer present LABORATORY STUDIES: Results for orders placed or performed during the hospital encounter of 03/03/19 CBC W/DIFF AUTOMATED Result Value Ref Range WBC 11.2 (H) 4.5 - 11.0 x10'3/uL RBC 4.84 4.20 - 5.40 x10'6/uL HGB 15.9 12.0 - 16.0 G/DL HCT 44.8 38.0 - 48.0 % MCV 92.6 81.0 - 99.0 FL MCH 32.9 (H) 27.0 - 31.0 PG MCHC 35.5 32.0 - 36.0 G/DL RDW 12.6 11.5 - 14.5 % PLT 207 130 - 400 x10'3/uL MPV 8.9 (L) 9.3 - 12.2 FL DIFFERENTIAL TYPE AUTOMATED DIFFERENTIAL NEUTROPHILS 62.9 % LYMPHOCYTES 27.7 % MONOCYTES 6.3 % EOSINOPHILS 2.2 % BASOPHILS 0.4 % IMMATURE GRANS 0.5 % ABS. NEUTROPHILS TOTAL 7.03 1.80 - 7.70 x10'3/uL ABS. LYMPHOCYTES 3.10 1.00 - 4.80 x10'3/uL ABS. MONOCYTES 0.71 0.24 - 0.86 x10'3/uL ABS. EOSINOPHILS 0.25 0.04 - 0.36 x10'3/uL ABS. BASOPHILS 0.05 0.01 - 0.08 x10'3/uL ABS. IMMATURE GRANULOCYTES 0.06 0.00 - 0.49 x10'3/uL COMPREHENSIVE METABOLIC PANEL Result Value Ref Range GLUCOSE 153 (H) 70 - 99 MG/DL BUN 12 7 - 18 MG/DL CREATININE 1.14 (H) 0.55 - 1.02 MG/DL SODIUM 143 136 - 145 MMOL/L POTASSIUM 3.0 (LL) 3.5 - 5.1 MMOL/L CHLORIDE 108 100 - 108 MMOL/L CO2 23.0 21 - 32 MMOL/L CALCIUM 10.4 (H) 8.5 - 10.1 MG/DL TOTAL BILIRUBIN 0.7 0.2 - 1.2 MG/DL TOTAL PROTEIN 7.3 6.4 - 8.2 G/DL ALBUMIN 3.8 3.4 - 5.0 G/DL AST 38 (H) 15 - 37 U/L ALT 63 (H) 14 - 55 U/L ALK PHOS 91 50 - 136 U/L ANION GAP 12.0 5 - 15 MMOL/L BUN CREATININE RATIO 10.5 6 - 26 A/G RATIO 1.1 1.0 - 2.0 RATIO eGFR Non-Afr. Amer. 56 (L) >90 ML/MIN/1.73 M2 eGFR Afr. Amer. 65 (L) >90 ML/MIN/1.73 M2 MAGNESIUM Result Value Ref Range MAGNESIUM 1.8 1.8 - 2.4 MG/DL URINALYSIS Result Value Ref Range Specimen Type URINE CLEAN CATCH COLOR YELLOW TRANSPARENCY CLEAR Specific [place] (U) 1.016 1.001 - 1.030 U PH 5.0 5.0 - 9.0 LEUKOCYTE ESTERASE SMALL (A) NEGATIVE NITRITES NEGATIVE NEGATIVE PROTEIN, URINE NEGATIVE <30 MG/DL URINE GLUCOSE NEGATIVE NEGATIVE MG/DL U KETONES NEGATIVE NEGATIVE MG/DL UROBILINOGEN NEGATIVE NEGATIVE MG/DL Urine Bilirubin NEGATIVE NEGATIVE MG/DL BLOOD NEGATIVE NEGATIVE CULTURE & SENSITIVITY INDICATED? SPECIMEN SETUP FOR CULTURE SQUAMOUS EPITHELIALS RARE /LPF MUCUS RARE /LPF HYALINE CASTS RARE /LPF WBC/HPF 11 (H) <6 /HPF RBC/HPF 1 <6 /HPF AMORPHOUS SEDIMENT RARE /HPF IMAGING STUDIES: No orders to display MEDICATIONS: Medications 0.9 % NaCl with KCl 20 mEq infusion (0 mL/hr Intravenous Infusion Stop Time 03/03/192116) potassium chloride CR (K-TAB) tablet 40 mEq (40 mEq Oral Given 03/03/191816) Current Discharge Medication List START taking these medications Details potassium chloride 20 MEQ packet Take 1 packet by mouth 2 (two) times daily for 10 days. Qty: 20 packet, Refills: 0 Class: Print ED Course / Medical Decision Making Plan: IVF, labs, EKG Rhythm Strip intepretation (by ED provider): Rhythm: Sinus tach Ventricular rate: 110 Pulse Oximeter interpretation: Saturation: 99 Oxygen device: RA Interpretation: NML Progress: Pt states sx completely resolved with IVF and K supplement. I highly suspect that her symptoms are secondary to Lasix administration. It appears that she is taking this at the advice of her primary care provider for the past several years. She has had a decreased amount of p.o. intake in the last few days with outdoor exposure, suspect this is contributing. She is tolerating p.o. well and her vital signs have markedly improved with IV fluids. She denies any persistent symptoms and her work-up is otherwise negative. She did have a slight bump in her creatinine however given her regular p.o. intake now intolerance as well as no other symptoms, outpatient follow-up is certainly acceptable. Shehas close follow-up with her primary care provider. At this time I would recommend she cut her doseof Lasix in half, chart review shows no prior cardiac history or diagnosis such as heart failure. No suspicion that this will cause any worsening cardiac function in her. Given her recurrent nature of hypokalemia and use of Lasix this should help. I also recommend increased p.o. supplementation of p otassium, will administer prescription upon discharge. I have discussed today's findings with the [...] and has verbalized understanding of these instructions. Medications 0.9 % NaCl with KCl 20 mEq infusion (0 mL/hr Intravenous Infusion Stop Time 03/03/192116) potassium chloride CR (K-TAB) tablet 40 mEq (40 mEq Oral Given 03/03/191816) Clinical Impression Hypokalemia (Primary) Current Discharge Medication List START taking these medications Details potassium chloride 20 MEQ packet Take 1 packet by mouth 2 (two) times daily for 10 days. Qty: 20 packet, Refills: 0 Class: Print Disposition: Discharge Follow-Up: Blake Lindsey MD [address] [place] [address] Call in 2 days FOR RECHECK LAURI MENENDEZ PA-C 03/03/2019 Lauri Menendez PA-C 03/03/192129 Cosigned by Philip Hancock MD at 03/13/2019 4:28 PM CDT * Ki Denton RN - 03/03/2019 4:27 PM CDT Pt states today her hands were cramping up and she has had the same symptoms when her potassium is low. * Diamond Barriga RN - 03/03/2019 4:21 PM CDT Bed: 21 Expected date: Expected time: Means of arrival: Comments: [facility] room 21 documented in this encounter Plan of Treatment Not on file documented as of this encounter Procedures Procedure Name Priority Date/Time Associated Diagnosis Comments ECG 12-LEAD STAT 03/03/2019 6:08 PM CDT URINE BACTERIA CULTURE Routine 5:49 PM CDT URINALYSIS STAT 03/03/2019 5:48 PM CDT COMPREHENSIVE METABOLIC PANEL STAT 03/03/2019 4:45 PM CDT CBC W/DIFF AUTOMATED STAT 03/03/2019 4:45 PM CDT MAGNESIUM STAT 03/03/2019 4:45 PM CDT documented in this encounter Results * ECG 12 lead (03/03/2019 6:08 PM CDT) 03/03/2019 6:08 PM CDT Narrative [facility] - 03/04/2019 5:44 AM CDT ?[facility] [place] ? [address], [place] ? Test Date: ?2019-03-03 Pat Name: ? PARK PALACIOSRachael ? Department: ? Room: ? [id number] Gender: ? Female ? Chief Engineer Research: ?? smh : ?1970 ? Requested By: LAURI MENENDEZ Order Number: [id number] ? Reading MD: ?? Jayce Cardenas ? Measurements Intervals ?[place] ? Rate: ? 112 ?P: ?28 WV: ? 120 ?QRS: ?10 QRSD: ? 89 ? T: ?32 QT: ? 334 ? QTc: ?457 ? Interpretive Statements SINUS TACHYCARDIA ABNORMAL RHYTHM ECG Compared to ECG 02/19/2019 13:08:51 Sinus rhythm no longer present No ischemic changes Dale Hancock M.D. Procedure Note Jayce Cardenas MD - 03/04/[address] Test Date: 2019-03-03 Pat Name: PARK PETERSON Department: Room: [place] [address] Gender: Female Chief Engineer Research: [facility] : 1970 Requested By: LAURI MENENDEZ Order Number: [id number] Reading MD: Jayce Cardenas Measurements Intervals [place] Rate: 112 P: 28 WV: 120 QRS: 10 QRSD: 89 T: 32 QT: 334 QTc: 457 Interpretive Statements SINUS TACHYCARDIA ABNORMAL RHYTHM ECG Compared to ECG 02/19/2019 13:08:51 Sinus rhythm no longer present No ischemic changes Dale Hancock M.D. us Lauri Menendez PA-C ECG ORDERABLES Final Result [facility] RAD * CULTURE URINE (03/03/2019 5:49 PM CDT) SPEC DESCRIPTION URINE CLEAN CATCH 03/03/2019 6:38 PM CDT [facility] SPECIAL REQUESTS NO SPECIAL REQUEST 03/03/2019 6:38 PM CDT [facility] CULTURE RESULT 10,000-49,000 COL/ML ESCHERICHIA COLI 03/06/2019 9:25 AM CDT [facility] CULTURE RESULT POLYMICROBIAL GROWTH CONSISTENT WITH NORMAL GENITAL EMILY. ?? SUSCEPTIBILITIES NOT ROUTINELY PERFORMED. 03/06/2019 9:25 AM CDT [facility] URINE SPECIMEN OBTAINED BY CLEAN CATCH PROCEDURE / Unknown 03/03/2019 5:49 PM CDT 03/03/2019 6:37 PM CDT Narrative Organism Antibiotic Method Susceptibility Escherichia coli AMPICILLIN NEVIN (VITEK) >=32: Resistant Escherichia coli AMPICILLIN/SULBACTAM NEVIN (VITEK) >=32: Resistant Escherichia coli CEFTRIAXONE NEVIN (VITEK) 8: Sensitive Escherichia coli CEFTAZIDIME NEVIN (VITEK) 16: Intermediate Escherichia coli CEFAZOLIN NEVIN (VITEK) >=64: Resistant Escherichia coli ESBL NEVIN (VITEK) NEG: Sensitive Escherichia coli NITROFURANTOIN NEVIN (VITEK) <=16: Sensitive Escherichia coli GENTAMICIN NEVIN (VITEK) >=16: Resistant Escherichia coli LEVOFLOXACIN NEVNI (VITEK) >=8: Resistant Escherichia coli PIPRACIL/TAZO NEVIN (VITEK) Sensitive Escherichia coli TRIMETH-SULFAMETH. NEVIN (VITEK) >=320: Resistant Escherichia coli TOBRAMYCIN NEVIN (VITEK) >=16: Resistant Escherichia coli AMIKACIN NEVIN (VITEK) 4: Sensitive Lauri Menendez PA-C MICROBIOLOGY - GENERAL ORDERA BLES Final Result [facility] [address] [place] [address], * (ABNORMAL) URINALYSIS (03/03/2019 5:48 PM CDT) SPECIMEN TYPE URINE CLEAN CATCH 03/03/2019 5:47 PM CDT [facility] COLOR (U) YELLOW 03/03/2019 6:33 PM CDT [facility] TRANSPARENCY CLEAR 03/03/2019 6:33 PM CDT [facility] SPECIFIC GRAVITY (U) 1.016 1.001 - 1.030 03/03/2019 6:33 PM T [facility] U PH 5.0 5.0 - 9.0 03/03/2019 6:33 PM T [facility] LEUKOCYTES (U) SMALL(A) NEGATIVE 03/03/2019 6:33 PM T [facility] NITRITES NEGATIVE NEGATIVE 03/03/2019 6:33 PM T [facility] PROTEIN (U) NEGATIVE <30 MG/DL 03/03/2019 6:33 PM T [facility] URINE GLUCOSE NEGATIVE NEGATIVE MG/DL 03/03/2019 6:33 PM T [facility] KETONES MG/DL (U) NEGATIVE NEGATIVE MG/DL 03/03/2019 6:33 PM T [facility] UROBILINOGEN NEGATIVE NEGATIVE MG/DL 03/03/2019 6:33 PM T [facility] BILIRUBIN (U) NEGATIVE NEGATIVE MG/DL 03/03/2019 6:33 PM T [facility] BLOOD (U) NEGATIVE NEGATIVE 03/03/2019 6:33 PM T [facility] CULTURE & SENSITIVITY INDICATED? SPECIMEN SETUP FOR CULTURE 03/03/2019 6:33 PM T [facility] SQUAMOUS EPITHELIALS RARE /LPF 03/03/2019 6:34 PM T [facility] MUCUS RARE /LPF 03/03/2019 6:34 PM T [facility] HYALINE CASTS RARE /LPF 03/03/2019 6:34 PM T [facility] WBC/HPF 11(H) <6 /HPF 03/03/2019 6:34 PM T [facility] RBC/HPF 1 <6 /HPF 03/03/2019 6:34 PM CDT [facility] AMORPHOUS SEDIMENT RARE /HPF 03/03/2019 6:34 PM CDT [facility] URINE SPECIMEN OBTAINED BY CLEAN CATCH PROCEDURE / Unknown 03/03/2019 5:48 PM CDT us Lauri Menendez PA-C URINE ORDERABLES Final Result Performing Organization Address City/[facility]/ZIP Co de Phone Number [facility] [address] [place] [address], [place] [phone] * MAGNESIUM (03/03/2019 4:45 PM CDT) MAGNESIUM 1.8 1.8 - 2.4 MG/DL 03/03/2019 5:30 PM CDT [facility] 03/03/2019 4:45 PM CDT us Lauri Menendez PA-C LABORATORY Final Result Performing Organization Address City/[facility] Co de Phone Number [facility] [address] [place] [address], [place] [phone] * (ABNORMAL) COMPREHENSIVE METABOLIC PANEL (03/03/2019 4:45 PM CDT) GLUCOSE 153(H) 70 - 99 MG/DL 03/03/2019 5:30 PM CDT [facility] BUN 12 7 - 18 MG/DL 03/03/2019 5:30 PM CDT [facility] CREATININE S/P/B 1.14(H) 0.55 - 1.02 MG/DL 03/03/2019 5:30 PM CDT [facility] SODIUM S/P/B 143 136 - 145 MMOL/L 03/03/2019 5:30 PM CDT [facility] POTASSIUM S/P/B 3.0(LL) 3.5 - 5.1 MMOL/L 03/03/2019 5:30 PM T [facility] Comment: KR CALLED CRITICAL RESULTS AT [id number] TO AND READ BACK BY DIAMOND BARRIGA CHLORIDE S/P/B 108 100 - 108 MMOL/L 03/03/2019 5:30 PM CDT [facility] CO2 23.0 21 - 32 MMOL/L 03/03/2019 5:30 PM T [facility] CALCIUM S/P/B 10.4(H) 8.5 - 10.1 MG/DL 03/03/2019 5:30 PM T [facility] BILIRUBIN TOTAL S/P/B 0.7 0.2 - 1.2 MG/DL 03/03/2019 5:30 PM T [facility] TOTAL PROTEIN S/P/B 7.3 6.4 - 8.2 G/DL 03/03/2019 5:30 PM T [facility] ALBUMIN S/P/B 3.8 3.4 - 5.0 G/DL 03/03/2019 5:30 PM T [facility] AST 38(H) 15 - 37 U/L 03/03/2019 5:30 PM T [facility] ALT 63(H) 14 - 55 U/L 03/03/2019 5:30 PM T [facility] ALKALINE PHOSPHATASE S/P/B 91 50 - 136 U/L 03/03/2019 5:30 PM T [facility] ANION GAP 12.0 5 - 15 MMOL/L 03/03/2019 5:30 PM T [facility] BUN CREATININE RATIO 10.5 6 - 26 03/03/2019 5:30 PM T [facility] A/G RATIO 1.1 1.0 - 2.0 RATIO 03/03/2019 5:30 PM CDT [facility] EGFR NON-AFR. AMER. 56(L) >90 ML/MIN/1.7 3 M2 03/03/2019 5:30 PM CDT [facility] EGFR AFR. AMER. 65(L) >90 ML/MIN/1.7 3 M2 03/03/2019 5:30 PM CDT [facility] Comment: NOTE: eGFR is not calculated for patients <18 years of age. This is an estimated GFR (CKD EPI) and should not be used for calculating drug doses. 03/03/2019 4:45 PM CDT Lauri Menendez PA-C LABORATORY Final Result [facility] [address] [place] [address], * (ABNORMAL) CBC W/DIFF AUTOMATED (03/03/2019 4:45 PM CDT) WBC 11.2(H) 4.5 - 11.0 x10'3/uL 03/03/2019 4:56 PM CDT [facility] RBC 4.84 4.20 - 5.40 x10'6/uL 03/03/2019 4:56 PM CDT [facility] HGB 15.9 12.0 - 16.0 G/DL 03/03/2019 4:56 PM CDT [facility] HCT 44.8 38.0 - 48.0 % 03/03/2019 4:56 PM CDT [facility] MCV 92.6 81.0 - 99.0 FL 03/03/2019 4:56 PM CDT [facility] MCH 32.9(H) 27.0 - 31.0 PG 03/03/2019 4:56 PM CDT [facility] MCHC 35.5 32.0 - 36.0 G/DL 03/03/2019 4:56 PM CDT [facility] RDW 12.6 11.5 - 14.5 % 03/03/2019 4:56 PM CDT [facility] PLT 207 130 - 400 x10'3/uL 03/03/2019 4:56 PM CDT [facility] MPV 8.9(L) 9.3 - 12.2 FL 03/03/2019 4:56 PM CDT [facility] DIFFERENTIAL TYPE AUTOMATED DIFFERENTIAL 03/03/2019 4:56 PM CDT [facility] NEUTROPHILS % 62.9 % 03/03/2019 4:56 PM CDT [facility] LYMPHOCYTES % 27.7 % 03/03/2019 4:56 PM CDT [facility] MONOCYTES % 6.3 % 03/03/2019 4:56 PM CDT [facility] EOSINOPHILS 2.2 % 03/03/2019 4:56 PM CDT [facility] BASOPHILS 0.4 % 03/03/2019 4:56 PM CDT [facility] IMMATURE GRANS % 0.5 % 03/03/20 19 4:56 PM CDT [facility] ABS. NEUTROPHILS TOTAL 7.03 1.80 - 7.70 x10'3/uL 03/03/2019 4:56 PM CDT [facility] ABS. LYMPHOCYTES 3.10 1.00 - 4.80 x10'3/uL 03/03/2019 4:56 PM CDT [facility] ABS. MONOCYTES 0.71 0.24 - 0.86 x10'3/uL 03/03/2019 4:56 PM CDT [facility] ABS. EOSINOPHILS 0.25 0.04 - 0.36 x10'3/uL 03/03/2019 4:56 PM CDT [facility] ABS. BASOPHILS 0.05 0.01 - 0.08 x10'3/uL 03/03/2019 4:56 PM CDT [facility] ABS. IMMATURE GRANULOCYTES 0.06 0.00 - 0.49 x10'3/uL 03/03/2019 4:56 PM CDT [facility] 03/03/2019 4:45 PM CDT us Lauri Menendez PA-C LABORATORY Final Result [facility] [address] [place] [address], [place] [phone] documented in this encounter Visit Diagnoses Diagnosis Hypokalemia- Primary Hypopotassemia documented in this encounter Administered Medications Inactive Administered Medications - up to 3 most recent administrations Medication Order MAR Action Action Date Dose Rate Site 0.9 % NaCl with KCl 20 mEq infusion at 500 mL/hr, Intravenous, Continuous, Starting on Wed03/03/19 at 1845, Until Wed03/03/19 at 2044 New Bag 03/03/2019 7:01 PM CDT 500 mL/hr 500 mL/hr potassium chloride CR (K-TAB) tablet 40 mEq 40 mEq, Oral, Once, 1 dose, On Wed03/03/19 at 1815, Do not break, chew, or crush. Given 03/03/2019 6:17 PM CDT 40 mEq documented in this encounter Active and Recently Administered Medications Times are shown in CDT. Scheduled Medication Order 03/01/2019 03/02/2019 03/03/2019 potassium chloride CR (K-TAB) tablet 40 mEq (COMPLETED) 40 mEq, Oral, Once, 1 dose, On Wed03/03/19 at 1815, Do not break, chew, or crush. 1816 (Given - Provid er: Ki Denton RN) Continuous Medication Order 03/01/2019 03/02/2019 03/03/2019 0.9 % NaCl with KCl 20 mEq infusion at 500 mL/hr, Intravenous, Continuous, Starting on Wed03/03/19 at 1845, Until Wed03/03/19 at 2043 190 (New Bag - Prov ider: Ki Denton RN)2116 (Infusion Stop Time - Provider: Ki Denton RN - Comment: 1 liter) documented in this encounter Care Teams Shackler Relationship Specialty Start Date End Date Blake Lindsey MD [address] [place] [address] PCP - General FAMILY PRACTICE 03/03/19 documented as of this encounter
--- OUTSIDE RECORDS SUMMARY | 2024-07-29 17:44 | XMS_ITS | Encounter Summary ---
Author Organization [facility] Address [address] [place] [address]. [place] [address] [place] [address] Care Team Providers Care Knot Tying Operator Name Role Phone Blake Lindsey MD Primary Care Provider [phone] Encounter Details Date Type Department Care Team (Late st Contact Info) Description 12/15/2020 6:45 PM CDT - 12/15/2020 11:59 PM CDT Hospital Encounter [facility] Diagnostic Imaging [address] [place] [address] Ki Gill, LEAD FORMER [address] [place] [address] Discharge Disposition: Home or Self [...] have Coronavirus / COVID-19? No / Unsure 12/15/2020 6:46 PM CDT documented as of this encounter [...] Priority Date/Time Associated Diagnosis Comments XR PELVIS AP+RT HIP 2V Routine 12/15/2020 6:58 PM CDT Pain in joint, pelvic region and thigh documented in this encounter Results * XR PELVIS AP+RT HIP 2V (12/15/2020 6:58 PM CDT) Anatomical Region Laterality Modality Pelvis, Hip Radiographic Jonna ging 12/15/2020 8:36 PM CDT Impressions 12/15/2020 8:37 PM CDT IMPRESSION: No acute fracture or dislocation. Referred By: ?? Interpreted By: Luis Flores MD, 12/15/2020 8:36 PM Narrative 12/15/2020 8:37 PM CDT EXAMINATION: X-RAY PELVIS AND RIGHT HIP 3 VIEWS EXAM TIME: 1855 hours. COMPARISON: 09/04/2019. HISTORY: Right hip and groin pain after fall 6 weeks prior. TECHNIQUE: A single AP view of the pelvis, as well as AP and lateral views of the right hip are submitted for evaluation. FINDINGS: Visualized bony pelvis intact. Sacroiliac joints and pubic symphysis intact. Right and left hip joints and proximal femurs preserved. Visualized lower lumbar intact. Procedure Note Willi Flores MD - 12/15/2020 EXAMINATION: X-RAY PELVIS AND RIGHT HIP 3 VIEWS EXAM TIME: 1855 hours. COMPARISON: 09/04/2019. HISTORY: Right hip and groin pain after fall 6 weeks prior. TECHNIQUE: A single AP view of the pelvis, as well as AP and lateral views of theright hip are submitted for evaluation. FINDINGS: Visualized bony pelvis intact. Sacroiliac joints and pubic symphysisintact. Right and left hip joints and proximal femurs preserved.Visualized lower lumbar intact. IMPRESSION: No acute fracture or dislocation. Referred By: Interpreted By: Luis Flores MD, 12/15/2020 8:36 PM Ki Gill LEAD FORMER GENERAL IMAGING Final Resu lt documented in this encounter Visit Diagnoses Diagnosis Pain in joint, pelvic region and thigh documented in this encounter Care Teams Knot Tying Operator Relationship Specialty Start Date End Date Blake Lindsey MD [address] [place] [address] PCP - General FAMILY PRACTICE 03/03/19 documented as of this encounter
--- OUTSIDE RECORDS SUMMARY | 2024-07-29 17:44 | XMS_ITS | Encounter Summary ---
Author Organization [facility] Address [address] [place] [address]. [place] [address] [place] [address] Care Team Providers Care Plastering Contractor Name Role Phone Blake Lindsey MD Primary Care Provider [phone] Reason for Referral * Imaging (Routine) - Closed Specialty Diagnoses / Procedures Referred By Contac t Referred To Contact RADIOLOGY Diagnoses Pain in right ankle Procedures MRI ANKLE RT WO CON Shelia Browning NP [address] [place] [address] Phone: tel: fax: [place] [address] Phone: tel: Referral ID Status Reason Start Date Expiration Date Visits Re quested Visits Authorized [id number] Closed 03/01/2020 03/31/2021 1 1 Reason for Visit * Imaging (Routine) - Closed Specialty Diagnoses / Procedures Referred By Contac t Referred To Contact RADIOLOGY Diagnoses Pain in right ankle Procedures MRI ANKLE RT WO CON Shelia Browning NP [address] [place] [address] Phone: tel: fax: [facility] [place] [address] [address] Phone: tel: Referral ID Status Reason Start Date Expiration Date Visits Re quested Visits Authorized [id number] Closed 03/01/2020 03/31/2021 1 1 Encounter Details Date Type Department Care Team (Late st Contact Info) Description 03/08/2020 10:43 AM CDT - 03/08/2020 11:59 PM CDT Hospital Encounter [facility] Open MRI [address] [place] [address] Shelia Browning, COMMUNICATIONS INTERN [address] [place] [address] Discharge Disposition: Home or Self [...] have Coronavirus / COVID-19? No / Unsure 03/08/2020 10:39 AM CDT documented as of this encounter [...] times daily as needed. 0 10/21/2018 12/22/2020 hydrOXYzine 25 MG tablet Take 25 mg by mouth 3 (three) times daily as needed for Anxiety. 01/12/2019 12/22/2020 lamotrigine 100 MG tablet Take 100 mg by mouth daily. 01/04/2019 02/04/2023 documented as of this encounter Plan of Treatment Not on file documented as of this encounter Procedures Procedure Name Priority Date/Time Associated Diagnosis Comments MRI ANKLE RT WO CON Routine 03/08/2020 1 1:30 AM CDT Pain In Right Ankle documented in this encounter Results * MRI ANKLE RT WO CON (03/08/2020 11:30 AM CDT) Anatomical Region Laterality Modality Ankle Magnetic Resonan ce 03/08/2020 12:0 4 PM CDT Impressions 03/08/2020 12:38 PM CDT =====IMPRESSION:===== 1. Acute high-grade lateral ankle sprain. Ruptured anterior tibiofibular ligament with avulsion fracture of the distal tibia. Also rupture of the anterior talofibular ligament. At least partially torn posterior tibiofibular ligament. 2. Associated bone contusions of the distal tibia, distal fibula and talus. 3. Moderate effusion of the posterior tibial, flexor digitorum longus flexor hallucis longus tendon sheaths. 4. Mild peroneus longus and brevis tendinosis. 5. Chronic plantar fasciitis with large plantar calcaneal spur. 6. Mild osteoarthritis. Narrative 03/08/2020 12:38 PM CDT EXAMINATION: MRI right ankle without contrast EXAM DATE/TIME: 03/08/2020 11:03 AM REASON FOR EXAM: ??Right ankle pain after recent fall. Lateral pain and swelling. Difficulty with weightbearing. ?? COMPARISON: Correlated with ankle radiographs 02/23/2020 TECHNIQUE: Mutiplanar, multisequence MRI of the right ankle was obtained without contrast. FINDINGS: In the lateral ankle, there is an acute avulsion fracture of the distal tibia anterolateral aspect corresponding to the tibial attachment of the anterior tibiofibular syndesmotic ligament. Associated marked irregularity and laxity of the anterior tib-fib ligament. Associated bone marrow edema of the tibia at the donor site. Avulsion fracture fragment measures approximately 7 mm. Mild bone contusion of the distal fibula. Also noted is a high-grade sprain, probable rupture of the anterior talofibular ligament with associated bone marrow edema of the talus and fibula at the ligament attachments. Residual ligament is extremely attenuated and somewhat elongated. Moderate sprain of the posterior tibiofibular ligament, partially torn with moderate overlying edema. Mild sprain of the posterior talofibular and calcaneofibular ligaments. Moderate ascites edema in the lateral ankle. Mild tendinosis of the peroneus longus and brevis tendons at the level of the fibular groove. No discrete tear. Low position of the peroneus brevis musculotendinous junction noted, crowding the fibular groove. Small enthesophytes of the distal fibula corresponding to the peroneal retinaculum attachment. In the medial ankle, the deltoid ligament complex components are intact. Small to moderate effusions of the posterior tibial, flexor digitorum and flexor hallucis longus longus tendon sheaths. No tendinosis or discrete tear. The anterior ankle tendons are relatively unremarkable. Achilles tendon is unremarkable. Moderate thickening of the bladder. Moderate thickening of the proximal plantar aponeurosis compatible with chronic plantar fasciitis. Minimal overlying edema. Large plantar calcaneal spur with small erosions. Ankle mortise alignment is intact. Distal tibia avulsion fracture as described above. Mild degenerative changes in the ankle and hindfoot with scattered marginal osteophytes and degenerative cartilage signal inhomogeneity. Low-grade degenerative chondrosis. Focal bone marrow edema of the lateral talar dome posterior aspect compatible with bone contusion. Overlying cartilage is poorly defined. Mild edema noted in the sinus tarsi. Small effusion of the sinus tarsi bursa. Procedure Note Jaun Dodd MD - 03/08/2020 EXAMINATION: MRI right ankle without contrast EXAM DATE/TIME: 03/08/2020 11:03 AM REASON FOR EXAM: Right ankle pain after recent fall. Lateral pain and swelling. Difficulty with weightbearing. COMPARISON: Correlated with ankle radiographs 02/23/2020 TECHNIQUE: Mutiplanar, multisequence MRI of the right ankle was obtained without contrast. FINDINGS: In the lateral ankle, there is an acute avulsion fracture ofthe distal tibia anterolateral aspect corresponding to the tibial attachmentof the anterior tibiofibular syndesmotic ligament. Associated marked irregularity and laxity of the anterior tib-fib ligament. Associatedbone marrow edema of the tibia at the donor site. Avulsion fracture fragment measures approximately 7 mm. Mild bone contusion of the distal fibula.Also noted is a high-grade sprain, probable rupture of the anteriortalofibular ligament with associated bone marrow edema of the talus and fibula atthe ligament attachments. Residual ligament is extremely attenuated and somewhat elongated. Moderate sprain of the posterior tibiofibularligament, partially torn with moderate overlying edema. Mild sprain of theposterior talofibular and calcaneofibular ligaments. Moderate ascites edema in the lateral ankle. Mild tendinosis of the peroneus longus and brevis tendonsat the level of the fibular groove. No discrete tear. Low position of the peroneus brevis musculotendinous junction noted, crowding the fibular groove. Small enthesophytes of the distal fibula corresponding to the peroneal retinaculum attachment. In the medial ankle, the deltoid ligament complex components are intact. Small to moderate effusions of the posterior tibial, flexor digitorumand flexor hallucis longus longus tendon sheaths. No tendinosis or discrete tear. The anterior ankle tendons are relatively unremarkable. Achilles tendon is unremarkable. Moderate thickening of the bladder. Moderate thickening of the proximal plantar aponeurosis compatible with chronic plantar fasciitis. Minimal overlying edema. Large plantarcalcaneal spur with small erosions. Ankle mortise alignment is intact. Distal tibia avulsion fracture as described above. Mild degenerative changes in the ankle and hindfootwith scattered marginal osteophytes and degenerative cartilage signal inhomogeneity. Low-grade degenerative chondrosis. Focal bone marrowedema of the lateral talar dome posterior aspect compatible with bonecontusion. Overlying cartilage is poorly defined. Mild edema noted in the sinustarsi. Small effusion of the sinus tarsi bursa. =====IMPRESSION:===== 1. Acute high-grade lateral ankle sprain. Ruptured anterior tibiofibular ligament with avulsion fracture of the distal tibia. Also rupture of the anterior talofibular ligament. At least partially torn posterior tibiofibular ligament. 2. Associated bone contusions of the distal tibia, distal fibula andtalus. 3. Moderate effusion of the posterior tibial, flexor digitorum longus flexor hallucis longus tendon sheaths. 4. Mild peroneus longus and brevis tendinosis. 5. Chronic plantar fasciitis with large plantar calcaneal spur. 6. Mild osteoarthritis. Shelia Browning COMMUNICATIONS INTERN MRI Final Resu lt documented in this encounter Visit Diagnoses Diagnosis Pain in right ankle Pain in joint, ankle and foot documented in this encounter Care Teams Plastering Contractor Relationship Specialty Start Date End Date Blake Lindsey MD [address] [address] PCP - General FAMILY PRACTICE 03/03/19 documented as of this encounter
--- OUTSIDE RECORDS SUMMARY | 2024-07-29 17:44 | XMS_ITS | Encounter Summary ---
Author Organization [facility] Address [address] [place] [address]. [place] [address] [place] [address] Care Team Providers Care Master At Arms Name Role Phone Unavailable Primary Care Provider Unavailabl e Encounter Details Date Type Department Care Team (Late st Contact Info) Description 08/30/2012 Abstract [facility] [address] [place] [address] [place] [id number] [address] Social History Tobacco Use Types [...]
--- OUTSIDE RECORDS SUMMARY | 2024-07-29 17:44 | XMS_ITS | Encounter Summary ---
Author Organization [facility] Address [address] [place] [address]. [place] [address] [place] [address] Care Team Providers Care Sinter Feeder Name Role Phone Blake Lindsey MD Primary Care Provider [phone] Encounter Details Date Type Department Care Team (Latest Contact Info) Description 12/15/2020 Travel Social History Tobacco Use Types Packs/Day [...] on filedocumented in this encounter Care Teams Sinter Feeder Relationship Specialty Start Date End Date Blake Lindsey MD [address] [place] [address] PCP - General FAMILY PRACTICE 03/03/19 documented as of this encounter
--- OUTSIDE RECORDS SUMMARY | 2024-07-29 17:44 | XMS_ITS | Encounter Summary ---
Author Organization [facility] Address [address] [place] [address]. [place] [address] [place] [address] Care Team Providers Care Semiconductor Processor Name Role Phone Unavailable Primary Care Provider Unavailabl e Encounter Details Date Type Department Care Team (Late st Contact Info) Description 05/25/[address] [facility] [address] [place] [address] [place] [id number] [address] Social History Tobacco Use Types [...] as of this encounter Visit Diagnoses Diagnosis Local infection of skin and subcutaneous tissue Unspecified local infection of skin and subcutaneous tissue documented in this encounter
--- OUTSIDE RECORDS SUMMARY | 2024-07-29 17:44 | XMS_ITS | Encounter Summary ---
Author Organization [facility] Address [address] [place] [address]. [place] [address] [place] [address] Care Team Providers Care Electrical Instrument Maker Name Role Phone Unavailable Primary Care Provider Unavailabl e Encounter Details Date Type Department Care Team (Late st Contact Info) Description 05/09/[address] [facility] [address] [place] [address] Manasa Ibarra MD Social History Tobacco Use [...] as of this encounter Visit Diagnoses Diagnosis Open wound of knee, leg, and ankle Open wound of knee, leg (except thigh), and ankle, without mention of complication documented in this encounter
--- OUTSIDE RECORDS SUMMARY | 2024-07-29 17:44 | XMS_ITS | Encounter Summary ---
Author Organization [facility] Address [address] [place] [address]. [place] [address] [place] [address] Care Team Providers Care Barrel Roller Name Role Phone Unavailable Primary Care Provider Unavailabl e Encounter Details Date Type Department Care Team (Latest Contact Info) Description 05/26/2012 Abstract [facility] Social History Tobacco Use Types [...]
--- OUTSIDE RECORDS SUMMARY | 2024-07-29 17:44 | XMS_ITS | Encounter Summary ---
Author Organization [facility] Address [address] [place] [address]. [place] [address] [place] [address] Care Team Providers Care Cotton Agent Name Role Phone Blake Lindsey MD Primary Care Provider [phone] Reason for Visit * Reason Comments Respiratory Symptoms Encounter Details Date Type Department Care Team (Latest Contact Info) Description 04/09/2020 1:05 PM CDT - 04/09/2020 1:32 PM CDT Hospital Encounter [place] [id number] [place] [address] Annabella Valdes, [facility]- Respiratory Symptoms Discharge Disposition: Home or Self Care (Routine [...] Sign Reading Time Taken Comments Blood Pressure 115/94 04/09/2020 1:12 PM CDT Pulse 86 04/09/2020 1:12 PM CDT Temperature 36.8 ??C (98.2 ??F) 04/09/2020 1:12 PM CD T Respiratory Rate 20 04/09/2020 1:12 PM CDT Oxygen Saturation 98% 04/09/2020 1:12 PM CDT Inhaled Oxygen Concentration - - Weight 86.2 kg (190 lb) 04/09/2020 1:12 PM CDT Height 160 cm (5' 3 ) 04/09/2020 1:12 PM CDT Body Mass Index 33.66 04/09/2020 1:12 PM CDT documented in this encounter Discharge Instructions * Discharge Instructions* Annabella Wilkinson Lucio, PROJECT BUILDER-BC - 04/09/2020 1:25 PM CDT Your symptoms indicate that you may have coronavirus disease 2019 (COVID-19). Unfortunately, you donot meet the current requirements by the [place] Department of Public Health (IDPH) or the Centersfor Disease Control and Prevention (CDC) for confirmatory testing. We cannot test you at this time.You should assume that you have the disease and that you are VERY contagious. Remain in isolation for at least 14 days (may be longer if you continue to have fevers). If your symptoms are worsening (such as developing shortness of breath, chest pain, or confusion) please call ahead to your local emergency room to let them know you are coming so that they can prepare, or let the EMS crew know on their arrival that you may have COVID-19 so that they can wear appropriate protection. Remain isolated from others in your home, cover any coughs/sneezes, do not share common household items (such as cups and silverware) and wash hands frequently. What is Coronavirus disease 2019 (COVID-19)? Coronaviruses are a large family of viruses. Some cause illness in people, and others, such as canine and feline coronaviruses, only infect animals. Most coronaviruses in humans are known to cause what we often refer to as the ???common cold.?? Rarely, coronaviruses can be come much more serious and have caused more serious infections such as Middle East Respiratory Syndrome (MERS) and Severe Acute Respiratory Syndrome (SARS). COVID-19 appears to be more serious than the routine coronaviruses that cause colds, but not as severe as MERS or SARS. What are the symptoms of Coronavirus disease 2019 (COVID-19)? Reported illnesses have ranged from mild symptoms to severe illness and for confirmed coronavirus disease 2019 (COVID-19) cases. The following symptoms may appear 2-14 days after exposure. ?? Fever ?? Cough ?? Shortness of breath Prevention There is currently no vaccine to prevent coronavirus disease 2019 (COVID-19). The best way to prevent illness is to avoid being exposed to this virus. However, as a reminder, CDC always recommends everyday preventive actions to help prevent the spread of respiratory diseases, including: ?? Avoid close contact with people who are sick. ?? Avoid touching your eyes, nose, and mouth. ?? Stay home when you are sick. ?? Cover your cough or sneeze with a tissue, then throw the tissue in the trash. ?? Clean and disinfect frequently touched objects and surfaces using a regular household cleaning spray or wipe. ?? Follow CDC???s recommendations for using a facemask. o CDC does not recommend that people who are well wear a facemask to protect themselves from respiratory diseases, including COVID-19. o Facemasks should be used by people who show symptoms of COVID-19 to help prevent the spread of the disease to others. The use of facemasks is also crucial for health workers. ?? Wash your hands often with soap and water for at least 20 seconds, especially after going to [facility]; before eating; and after blowing your nose, coughing, or sneezing. o If soap and water are not readily available, use an alcohol-based hand head concierge with at least 60% alcohol. Always wash hands with soap and water if hands are visibly dirty. Coronavirus (COVID-19) Testing Your healthcare professional will work with your state???s public health department and CDC to determine if you need to be tested for COVID-19. Only certain persons meet criteria for COVID-19 testingand testing will depend on state and CDC guidelines. IF YOU HAD A COVID-19 TEST TODAY: Please call in 72 hours if you have not heard from us to follow up on your results. You should REMAIN QUARANTINED until test results are available. If you test positive, remain in isolation for at least 14 days (may be longer if you continue to have fevers). If your symptoms are worsening (such as developing shortness of breath, chest pain, or confusion) please call ahead to your local emergency room to let them know you are coming so that they can prepare, or let the EMS crew know on their arrival that you have COVID-19 so that they can wear appropriate protection. Remain isolated from others in your home, cover any coughs/sneezes, do notshare common household items (such as cups and silverware) and wash hands frequently. You may take Zyrtec and flonase to help with your runny nose, ear pain, and cough. Please use the albuterol as instructed. Either use 2 puffs or a neb treatment every 4-6 hours for the next 48 hours. Today you need to be tested for COVID-19, please go to [facility] as you requested. Please self quarantine until you get the results back. If positive, you will need to self quarantine for 14 days anduntil you are symptom-free for 3 days. If negative, you will need to self quarantine until you are symptom-free for 3 days. Return to care for you for worsening symptoms. * Attachments The following attachments cannot be sent through Care Everywhere. * Skin Abrasions Discharge Instructions (Honduran) * Seasonal Allergies Discharge Instructions (Honduran) * Cough Discharge Instructions, Adult (Honduran) * Coronavirus Disease 2019 (COVID-19) Discharge Instructions (Honduran) documented in this encounter Medications at Time [...] times daily as needed. 0 10/21/2018 1 cetirizine 10 MG tablet Take 1 tablet (10 mg total) by mouth daily for 30 days. 30 tablet 04/09/2020 0 HYDROcodone-acet aminophen 10-325 MG tablet Take 1 tablet by mouth every 6 (six) hours as needed for Pain. 1 hydrOXYzine 25 MG tablet Take 25 mg by mouth 3 (three) times daily as needed for Anxiety. 01/12/2019 1 lamotrigine 100 MG tablet Take 100 mg by mouth daily. 01/04/2019 3 mupirocin 2 % ointment Apply topically 2 (two) times daily for 7 days. Apply to right foot 22 g 04/09/2020 0 documented as of this encounter ED Notes * Annabella Valdes, PROJECT BUILDER-BC - 04/09/2020 1:26 PM CDT History Chief Complaint Patient presents with ??? Respiratory Symptoms Lakeisha Alejandra is a 49-year-old female who presented to the with two complaints. 1. URI: Pt states I have a URI . She reports cough, runny nose, and right ear pain that began yesterday. Pt states that she has had nausea related to the drainage in her throat. She also reports that because of the drainage she has had a weird sense of taste . She denies fever. She states that she would normally use her albuterol neb for her cough/SOB, but when she got it out last night she didn't have the tubing for it. She reports wheezing at home. Pt also reports a history of COPD and asthma. 2. Pt reports that she has a wound to her right foot. She states she has had an ongoing ligament injury for which she is wearing an ortho boot. She states that 4 days ago she noticed a blistered areaon the top of her right foot. She is concerned about it now because it is big and red like it is infected . Pt denies drainage. PT states it is tender to touch. Past Medical History: Diagnosis Date ??? Arthritis ??? Asthma ??? COPD (chronic obstructive pulmonary disease) ([facility]) ??? Hodgkin's disease ([facility]) ??? PTSD (post-traumatic stress disorder) Prior to Admission medications Medication Sig Start Date End Date Taking? Authorizing Provider albuterol (2.5 MG/3ML) 0.083% nebulizer solution Take 3 mLs (2.5 mg total) by nebulization every 4 (four) hours as needed for Wheezing. 04/09/20 Yes Annabella F Lucio, PROJECT BUILDER-BC albuterol sulfate HFA 108 (90 Base) MCG/ACT inhaler Inhale 2 puffs into the lungs every 4 (four) hours as needed for Wheezing or Shortness of breath (cough). 04/09/20 Yes Annabella Valdes PROJECT BUILDER-BC cetirizine 10 MG tablet Take 1 tablet (10 mg total) by mouth daily for 30 days. 04/09/20 05/09/20 Yes Annabella F Lucio, PROJECT BUILDER-BC fluticasone propionate (FLONASE) 50 MCG/ACT nasal spray 1 spray by Each Nostril route 2 (two) timesa day. 04/09/20 Yes Annabella F Lucio PROJECT BUILDER-BC HYDROcodone-acetaminophen 10-325 MG tablet Take 1 tablet by mouth every 6 (six) hours as needed forPain. Yes Doc Abstract mupirocin 2 % ointment Apply topically 2 (two) times daily for 7 days. Apply to right foot 04/09/20 04/16/20 Yes Annabella F Lucio PROJECT BUILDER-BC ALPRAZolam 0.5 MG tablet Take 0.5 mg by mouth 3 (three) times daily as needed. 10/21/18 Doc Abstract atorvastatin 10 MG tablet Take 10 mg by mouth nightly. 03/02/19 Doc Abstract furosemide 20 MG tablet Take 20 mg by mouth daily. 02/23/19 Doc Abstract hydrOXYzine 25 MG tablet Take 25 mg by mouth 3 (three) times daily as needed for Anxiety. 01/12/19 Doc Abstract lamotrigine 100 MG tablet Take [...] traZODone 50 MG tablet 03/30/20 Doc Abstract Past Surgical History: Procedure Laterality Date ??? BACK SURGERY spinal fusion ??? FRACTURE SURGERY ??? KNEE SURGERY Bilateral ??? TOOTH EXTRACTION Family History Problem Relation Name Age of Onset ??? Hypertension Mother ??? Diabetes Mother ??? Heart Disease Mother ??? Cancer Father ??? Heart Disease Father ??? Hypertension Father Social History Tobacco Use ??? Smoking status: Former Smoker Last attempt to quit: 1997 Years since quittin.7 ??? Smokeless tobacco: Never Used Substance Use Topics ??? Alcohol use: Yes Alcohol/week: 1.7 standard drinks Types: 1 Shots of liquor per week ??? Drug use: No No LMP recorded. Patient is postmenopausal. Review of Systems Constitutional: Negative for fever. HENT: Positive for ear pain and rhinorrhea. Negative for sore throat and trouble swallowing. Respiratory: Positive for cough, shortness of breath and wheezing. Negative for chest tightness. Cardiovascular: Negative for chest pain, palpitations and leg swelling. Gastrointestinal: Positive for nausea. Negative for abdominal pain, constipation, diarrhea and vomiting. Neurological: Negative for headaches. All other systems reviewed and are negative. Physical Exam Filed Vitals: 04/09/20 1312 BP: (!) 115/94 Pulse: 86 Resp: 20 Temp: 98.2 ??F (36.8 ??C) TempSrc: Oral SpO2: 98% Weight: 86.2 kg (190 lb) Height: 5' 3 (1.6 m) Physical Exam Constitutional: She is oriented to person, place, and time. She appears well- developed and well-nourished. HENT: Head: Normocephalic and atraumatic. Right Ear: External ear normal. Left Ear: External ear normal. Nose: Nose normal. Mouth/Throat: Oropharynx is clear and moist. Eyes: Pupils are equal, round, and reactive to light. Conjunctivae and EOM are normal. Neck: Normal range of motion. Neck supple. Cardiovascular: Normal rate, regular rhythm, normal heart sounds and intact distal pulses. No murmur heard. Pulmonary/Chest: Effort normal and breath sounds normal. No respiratory distress. She has no wheezes. She has no rales. She exhibits no tenderness. Lungs CTA bilaterally, pt able to speak in full sentences, pt with no increased resp effort noted. Abdominal: Soft. Bowel sounds are normal. There is no tenderness. Musculoskeletal: Normal range of motion. Lymphadenopathy: She has no cervical adenopathy. Neurological: She is alert and oriented to person, place, and time. Skin: Skin is warm and dry. No rash noted. Right dorsal foot with 0.3cm scabbed area with mild erythema surrounding. No induration, fluctuance, drainage, or open wound noted. Mildly tender with palpation. 2+ pedal pulses, cap refill < 2 secs. Psychiatric: She has a normal mood and affect. Her behavior is normal. Thought content normal. Vitals reviewed. ED Course Procedures The patient's symptoms are that of a common viral syndrome however due to the COVID-19 pandemic I will test the patient and instruct the patient to self quarantine for the next 14 days. During my encounter I used personal protective equipment. Plan of care discussed with patient. Patient agreeable with plan of care. I have discussed today's findings with the patient and provided information regarding the likely diagnosis. I believe at thistime that the patient has no medical emergency and is appropriate for outpatient management. The patient has been given information regarding their treatment, follow up and concerning symptoms for which they should seek urgent or emergent attention; all questions were answered. I have expressed thethe importance of seeking attention should there be any new, or worsening symptoms or persistence of their condition. The patient is stable at discharge and has verbalized understanding of these instructions. Medications - No data to display Discharge Medication List as of 04/09/2020 1:25 PM START taking these medications Details albuterol (2.5 MG/3ML) 0.083% nebulizer solution Take 3 mLs (2.5 mg total) by nebulization every 4 (four) hours as needed for Wheezing., Starting Wed04/09/2020, Eprescribe Class: Eprescribe Pharmacy: [facility] [address] [place] [address] [address] [facility] [address] (Ph #: [phone]) cetirizine 10 MG tablet Take 1 tablet (10 mg total) by mouth daily for 30 days., Starting Wed04/09/2020, Until Kathleen 05/09/2020, Eprescribe Class: Eprescribe Pharmacy: [facility] [address] [place], [place] [address] [address] [facility] [address] (Ph #: [phone]) fluticasone propionate (FLONASE) 50 MCG/ACT nasal spray 1 spray by Each Nostril route 2 (two) timesa day., Starting Wed04/09/2020, Eprescribe Class: [facility]: [facility] [address] [place] [address] [address] [facility] [address] (Ph #: [phone]) mupirocin 2 % ointment Apply topically 2 (two) times daily for 7 days. Apply to right foot, Starting Wed04/09/2020, Until Wed04/16/2020, Eprescribe Class: Eprescribe Pharmacy: [facility] [address] [place], [place] [address] [address] [facility] [address] (Ph #: [phone]) MDM Number of Diagnoses or Management Options Abrasion of right foot, initial encounter: Allergic rhinitis: Cough: Patient Progress Patient progress: stable SNOMED CT(R) 1. Cough COUGH 2. Allergic rhinitis ALLERGIC RHINITIS 3. Abrasion of right foot, initial encounter ABRASION OF FOOT Disposition: Discharge Follow up instructions: Blake Lindsey MD [address] [place] [address] Call in 2 days If symptoms worsen STANFORD CHOU Please excuse any grammatical or spelling errors as this chart was documented using HelloBooks, a dictation software. STANFORD Chou 04/09/20 1333 Cosigned by Eden Montenegro MD at 04/11/2020 12:26 AM CDT * Danita Dupree RN - 04/09/2020 1:13 PM CDT PT TO UC WITH C/O RIGHT EAR PAIN, COUGH, CONGESTION, SINUS DRAINAGE, NAUSEA, RUNNY NOSE AND SOB. SXSTARTED YESTERDAY. HX OF COPD. PT DOES NOT WANT COVID TESTING. documented in this encounter Plan of Treatment Not on file documented as of this encounter Visit Diagnoses Diagnosis Cough- Primary Allergic rhinitis Allergic rhinitis, cause unspecified Abrasion of right foot, initial encounter documented in this encounter Care Teams Cotton Agent Relationship Specialty Start Date End Date Blake Lindsey MD [address] [address] PCP - General FAMILY PRACTICE 03/03/19 documented as of this encounter
--- OUTSIDE RECORDS SUMMARY | 2024-07-29 17:44 | XMS_ITS | Encounter Summary ---
Author Organization [facility] Address [address] [place] [address]. [place] [address] [place] [address] Care Team Providers Care Engineering Leader Name Role Phone Blake Lindsey MD Primary Care Provider [phone] Encounter Details Date Type Department Care Team (Latest Contact Info) Description 08/15/2020 Travel Social History Tobacco Use Types Packs/Day [...] COVID-19? No / Unsure 08/15/2020 11:29 AM DIRECTOR TRANSLATION documented as of this encounter Plan of Treatment Not on file documented as of this encounter Visit Diagnoses Not on filedocumented in this encounter Care Teams Engineering Leader Relationship Specialty Start Date End Date Blake Lindsey MD [address] [place] [address] PCP - General FAMILY PRACTICE 03/03/19 documented as of this encounter
--- OUTSIDE RECORDS SUMMARY | 2024-07-29 17:44 | XMS_ITS | Encounter Summary ---
Author Organization [facility] Address [address] [place] [address]. [place] [address] [place] [address] Care Team Providers Care [place] Ordinary Name Role Phone Unavailable Primary Care Provider Unavailabl e Encounter Details Date Type Department Care Team (Latest Contact Info) Description 05/18/2012 Abstract [facility] Manasa [...] Sign Reading Time Taken Comments Blood Pressure 118/76 05/18/2012 11:39 AM CDT Pulse 90 05/18/2012 11:39 AM CDT Temperature - - Respiratory Rate - - Oxygen Saturation - - Inhaled Oxygen Concentration - - Weight 86.2 kg (190 lb) 05/18/2012 11:39 AM CDT Height - - Body Mass Index 33.66 03/24/2012 2:15 PM CDT documented in this encounter Progress Notes * Manasa Ibarra MD - 05/18/2012 11:30 AM CDT Message Per Dr Ibarra pt needs to be seen today. Pt did not have [employer] card. Pt will fax in to us on 05/19/12 Current Meds 1. Diclofenac Sodium 75 MG Oral Tablet Delayed Release; TAKE 1 TABLET 3 times daily PRN TEETH PAIN; Therapy: [id number] to (Evaluate:05Jun2012); Last Rx:06May2012 2. Erythromycin Base 500 MG Oral Tablet; TK 1 T PO Q 8 H TAT; Therapy: 14Mar2012 to 3. Hydrocodone-Acetaminophen 7.5-750 MG Oral Tablet; TK 1 T PO Q 6 TO 8 H PRN P; Therapy: 14Mar2012 to 4. Proventil HFA 108 (90 Base) MCG/ACT Inhalation Aerosol Solution; INHALE 1-2 PUFFS EVERY 4-6 HOURS NEEDED AND DIRECTED; Therapy: 24Mar2012 to (Last Rx:24Mar2012) 5. TraMADol HCl 50 MG Oral Tablet; TK 1/ T 25MG PO Q 6 TO 8 H PRN FOR PAIN; Therapy: 16Mar2012 to Assessment 1. Shortness Of Breath 786.05 2. Anxiety 300.00 3. Asthma 493.90 4. Erythema Nodosum 695.2 Plan 1. Proventil HFA 108 (90 Base) MCG/ACT Inhalation Aerosol Solution; INHALE 1-2 PUFFS EVERY 4-6 HOURS NEEDED AND DIRECTED; Therapy: 24Mar2012 to (Last Rx:24Mar2012) 2. XR CHEST 2 VIEW Requested for: 18May2012 3. Diclofenac Sodium 75 MG Oral Tablet Delayed Release; TAKE 1 TABLET 3 times daily PRN TEETH PAIN; Therapy: 06May2012 to 18May2012; Last Rx:06May2012; Status: DISCONTINUED Signatures Electronically signed by : Manasa Ibarra M.D.; May 18 2012 12:37PM (Author) RING SHED WORKER * Manasa Ibarra MD - 05/18/2012 11:30 AM CDT Reason For Visit pr h Chief Complaint PT HERE FOR LESIONS ON LOWER LEGS,ONE IS THE SIZE OF A DIME,ITCHING AND REDNESS,HAVE HAD FOR TWO WEEKS. ALSO DISCUSS ECHO REPORT History of Present Illness HPI: wew Patient is having B//l LE nodules and ulcerls for few weeks. It is probably erythema nodusa, diagnosis unclear so far. Today she complains ofshortness of breath woth exertion. its better with rest. No chest pain or chest tightness. Pt has history of asthma . She has not used inhaler lately.no cough, no fever. Active Problems 1. Anxiety 300.00 2. Asthma 493.90 3. Skin: A Rash 782.1 4. Tooth Pain 525.9 Current Meds 1. Diclofenac Sodium 75 MG Oral Tablet Delayed Release; TAKE 1 TABLET 3 times daily PRN TEETH PAIN; Therapy: 06May2012 to (Evaluate:05Jun2012); Last Rx:06May2012 2. Erythromycin Base 500 MG Oral Tablet; TK 1 T PO Q 8 H TAT; Therapy: 14Mar2012 to 3. Hydrocodone-Acetaminophen 7.5-750 MG Oral Tablet; TK 1 T PO Q 6 TO 8 H PRN P; Therapy: 14Mar2012 to 4. Proventil HFA 108 (90 Base) MCG/ACT Inhalation Aerosol Solution; INHALE 1-2 PUFFS EVERY 4-6 HOURS NEEDED AND DIRECTED; Therapy: 24Mar2012 to (Last Rx:24Mar2012) 5. TraMADol HCl 50 MG Oral Tablet; TK 1/2 T 25MG PO Q 6 TO 8 H PRN FOR PAIN; Therapy: 16Mar2012 to Allergies 1. Amoxicillin TABS Vitals Signs [Data Includes: Current Encounter] 18May2012 11:39AM Heart Rate: 90 Systolic: 118, LUE Diastolic: 76, LUE BMI Calculated: 33.66 BSA Calculated: 1.89 Weight: 190 lb O2 Saturation: 99 Physical Exam Constitutional General appearance: No acute distress, well appearing and well nourished. Ears, Nose, Mouth, and Throat Otoscopic examination: Tympanic membranes translucent with normal light reflex. Canals patent without erythema. Pulmonary Auscultation of lungs: Clear to auscultation. Cardiovascular Auscultation of heart: Normal rate and rhythm, normal S1 and S2, without murmurs. Skin Skin and subcutaneous tissue: Abnormal. B/L abot 2cm nodules scattered, tender. Assessment 1. Shortness Of Breath 786.05 2. Anxiety 300.00 3. Asthma 493.90 4. Erythema Nodosum 695.2 Plan 1. Proventil HFA 108 (90 Base) MCG/ACT Inhalation Aerosol Solution; INHALE 1-2 PUFFS EVERY 4-6 HOURS NEEDED AND DIRECTED; Therapy: [id number] to (Last Rx:[id number]) 2. XR CHEST 2 VIEW Requested for: 18May2012 3. Diclofenac Sodium 75 MG Oral Tablet Delayed Release; TAKE 1 TABLET 3 times daily PRN TEETH PAIN; Therapy: 06May2012 to 18May2012; Last Rx:06May2012; Status: DISCONTINUED Etilogy unknown so far. AURY panel, TSH is negative. We will refer pt to Dr. Flores for biopsy and possible debridement. 2D echo looks good.Use inhaler before walking or exercise. We will do CXR. Signatures Electronically signed by : Manasa Ibarra M.D.; May 18 2012 12:37PM (Author) Electronically signed by : Manasa Ibarra M.D.; May 18 2012 12:38PM (Author) RING SHED WORKER documented in this encounter Plan of Treatment Not on file documented as of this encounter Visit Diagnoses Not on filedocumented in this encounter
--- OUTSIDE RECORDS SUMMARY | 2024-07-29 17:44 | XMS_ITS | Encounter Summary ---
Author Organization [facility] Address [address] [place] [address]. [place] [address] [place] [address] Care Team Providers Care Database Management System Specialist Name Role Phone Unavailable Primary Care Provider Unavailabl e Encounter Details Date Type Department Care Team (Latest Contact Info) Description 09/17/2012 Abstract [facility] Social History Tobacco Use Types [...]
--- OUTSIDE RECORDS SUMMARY | 2024-07-29 17:44 | XMS_ITS | Encounter Summary ---
Author Organization [facility] Address [address] [place] [address]. [place] [address] [place] [address] Care Team Providers Care Team Leader/Research Psychologist Name Role Phone Unavailable Primary Care Provider Unavailabl e Encounter Details Date Type Department Care Team (Late st Contact Info) Description 08/12/2012 Abstract [facility] [address] [place] [address] [place] [address] [id number] Social History Tobacco Use Types [...]
--- OUTSIDE RECORDS SUMMARY | 2024-07-29 17:44 | XMS_ITS | Encounter Summary ---
Author Organization [facility] Address [address] [place] [address]. [place] [address] [place] [address] Care Team Providers Care Building Guard Deputy Sheriff Name Role Phone Unavailable Primary Care Provider Unavailabl e Encounter Details Date Type Department Care Team (Late st Contact Info) Description 08/19/2012 Abstract [facility] [address] [place] [address] [place] [address] [address] Social History Tobacco Use Types [...]
--- OUTSIDE RECORDS SUMMARY | 2024-07-29 17:44 | XMS_ITS | Encounter Summary ---
Author Organization [facility] Address [address] [place] [address]. [place] [address] [place] [address] Care Team Providers Care Manufacturing Plant Controller Name Role Phone Blake Lindsey MD Primary Care Provider [phone] Encounter Details Date Type Department Care Team (Late st Contact Info) Description 02/23/2020 12:10 PM CDT - 02/23/2020 12:50 PM CDT Hospital Encounter [facility] Diagnostic Imaging [address] [place], [place] [address] Shelia Browning, DAIRY SCIENTIST [address] [place] [address] Discharge Disposition: Home or Self [...] have Coronavirus / COVID-19? No / Unsure 02/23/2020 12:10 PM CDT documented as of this encounter [...] Name Priority Date/Time Associated Diagnosis Comments XR ANKLE RT M3V Routine 02/23/2020 12:45 PM CDT Right ankle pain documented in this encounter Results * XR ANKLE RT M3V (02/23/2020 12:45 PM CDT) Anatomical Region Laterality Modality Ankle Radiographic Jonna ging 02/24/2020 1:01 PM CDT Impressions 02/24/2020 1:04 PM CDT IMPRESSION: No acute osseous abnormalities identified. Interpreted By: Manjinder Lopez DO, 02/24/2020 1:01 PM Narrative 02/24/2020 1:04 PM CDT EXAMINATION: X-ray right ankle, 3 views HISTORY: Right ankle pain and swelling. ??Fall 2 weeks ago. COMPARISON: None. TECHNIQUE: AP, oblique, and lateral views of the right ankle. FINDINGS: No evidence of acute fracture or dislocation. ??The ankle mortise and talar dome appear intact. ??There is a plantar calcaneal spur. ??There are venous phleboliths. ?? Procedure Note Manjinder Lopez DO - 02/24/2020 EXAMINATION: X-ray right ankle, 3 views HISTORY: Right ankle pain and swelling. Fall 2 weeks ago. COMPARISON: None. TECHNIQUE: AP, oblique, and lateral views of the right ankle. FINDINGS: No evidence of acute fracture or dislocation. The ankle mortise and talardome appear intact. There is a plantar calcaneal spur. There are venousphleboliths. IMPRESSION: No acute osseous abnormalities identified. Interpreted By: Manjinder Lopez DO, 02/24/2020 1:01 PM us Shelia Browning NP GENERAL IMAGING Final Resu lt documented in this encounter Visit Diagnoses Diagnosis Right ankle pain Pain in joint, ankle and foot documented in this encounter Care Teams Manufacturing Plant Controller Relationship Specialty Start Date End Date Blake Lindsey MD [address] [place], [place] [id number] PCP - General FAMILY PRACTICE 03/03/19 documented as of this encounter
--- OUTSIDE RECORDS SUMMARY | 2024-07-29 17:44 | XMS_ITS | Encounter Summary ---
Author Organization [facility] Address [address] [place] [address]. [place] [address] [place] [address] Care Team Providers Care Ceiling Installer Name Role Phone Unavailable Primary Care Provider Unavailabl e Encounter Details Date Type Department Care Team (Latest Contact Info) Description 09/02/2012 Abstract [facility] Medical Group Social History Tobacco Use [...]
--- OUTSIDE RECORDS SUMMARY | 2024-07-29 17:44 | XMS_ITS | Encounter Summary ---
Author Organization [facility] Address [address] [place] [address]. [place] [address] [place] [address] Care Team Providers Care Disability Insurance Claim Examiner Name Role Phone Blake Lindsey MD Primary Care Provider [phone] Encounter Details Date Type Department Care Team (Latest Contact Info) Description 02/23/2020 Travel Social History Tobacco Use Types Packs/Day [...] on filedocumented in this encounter Care Teams Disability Insurance Claim Examiner Relationship Specialty Start Date End Date Blake Lindsey MD [address] [place] [address] PCP - General FAMILY PRACTICE 03/03/19 documented as of this encounter
--- OUTSIDE RECORDS SUMMARY | 2024-07-29 17:44 | XMS_ITS | Encounter Summary ---
Author Organization [facility] Address [address] [place] [address]. [place] [address] [place] [address] Care Team Providers Care Dynamotor Repairer Name Role Phone Blake Lindsey MD Primary Care Provider [phone] Encounter Details Date Type Department Care Team (Latest Contact Info) Description 03/08/2020 Travel Social History Tobacco Use Types Packs/Day [...] on filedocumented in this encounter Care Teams Dynamotor Repairer Relationship Specialty Start Date End Date Blake Lindsey MD [address] [place] [address] PCP - General FAMILY PRACTICE 03/03/19 documented as of this encounter
--- OUTSIDE RECORDS SUMMARY | 2024-07-29 17:44 | XMS_ITS | Encounter Summary ---
Author Organization [facility] Address [address] [place] [address]. [place] [address] [place] [address] Care Team Providers Care Butt Welder Name Role Phone Unavailable Primary Care Provider Unavailabl e Encounter Details Date Type Department Care Team (Late st Contact Info) Description 09/06/2012 Abstract [facility] [address] [place] [address] [place] [address] [address] Social History Tobacco Use Types [...]
--- OUTSIDE RECORDS SUMMARY | 2024-07-29 17:44 | XMS_ITS | Encounter Summary ---
Author Organization [facility] Address [address] [place] [address]. [place] [address] [place] [address] Care Team Providers Care Chronometer Assembler And Adjuster Name Role Phone Blake Lindsey MD Primary Care Provider [phone] Reason for Visit * Reason Comments Eye Problem Encounter Details Date Type Department Care Team (Latest Contact Info) Description 02/23/2020 12:51 PM CDT - 02/23/2020 1:32 PM CDT Hospital Encounter [place] [address] Charlie Galdamez PA [address] [place], [place] [id number] Eye Problem Discharge Disposition: Home or Self Care [...] Sign Reading Time Taken Comments Blood Pressure 113/77 02/23/2020 12:51 PM CDT Pulse 81 02/23/2020 12:51 PM CDT Temperature 36.7 ??C (98 ??F) 02/23/2020 12:51 PM CDT Respiratory Rate 18 02/23/2020 12:51 PM CDT Oxygen Saturation 96% 02/23/2020 12:51 PM CDT Inhaled Oxygen Concentration - - Weight 89.4 kg (197 lb) 02/23/2020 12:51 PM CDT Height 161 cm (5' 3.39 ) 02/23/2020 12:51 PM CDT Body Mass Index 34.47 02/23/2020 12:51 PM CDT documented in this encounter Discharge Instructions * Discharge Instructions* ELOINA Mascorro - 02/23/2020 1:29 PM CDT Take medication as prescribed. Follow-up with your primary care provider in 5 to 7 days. Return emergency department symptoms worsen or new concerns. * Attachments The following attachments cannot be sent through Care Everywhere. * Foreign Body in Eye Discharge Instructions (Cook Islander) documented in this encounter Medications at Time [...] times daily as needed. 0 10/21/2018 12/22/2020 erythromycin 5 MG/GM (0.5%) ophthalmic ointment Place into the left eye 3 (three) times a day for 5 days. 3.5 g 02/23/2020 02/28/2020 hydrOXYzine 25 MG tablet Take 25 mg by mouth 3 (three) times daily as needed for Anxiety. 01/12/2019 12/22/2020 lamotrigine 100 MG tablet Take 100 mg by mouth daily. 01/04/2019 02/04/2023 documented as of this encounter ED Notes * ELOINA Mascorro - 02/23/2020 1:28 PM CDT ED NOTE Chief Complaint Chief Complaint Patient presents with ??? Eye Problem History of Present Illness 49-year-old female presenting to urgent care with complaint of left eye discomfort over the past day. Patient is last night she felt like something may have gotten into her left side. Has been havingsensation of foreign body since then. Associated with some blurring of the vision and pain with movement of eye. No history of this in the past. Denies loss of vision, headache or redness to the eye.Denies purulent drainage or contacts lens use Medical History ALLERGIES: Allergies Allergen Reactions ??? Penicillins Rash and Unknown ??? Amoxicillin Rash ??? Codeine Other (see comment) Passes out, Passes out ??? Epinephrine Other (see comment) When injected in mouth for dental procedures, makes extremities go numb MEDICATIONS: Prior to Admission medications Medication Sig Start Date End Date Taking? Authorizing Provider erythromycin 5 MG/GM (0.5%) ophthalmic ointment Place into the left eye 3 (three) times a day for 5days. 02/23/20 02/28/20 Yes ELOINA Mascorro albuterol sulfate HFA 108 (90 Base) MCG/ACT [...] 02/16/19 Doc Abstract PAST MEDICAL HISTORY: Past medical history negative for heart disease, cancer, and diabetes. Past Medical History: Diagnosis Date ??? Arthritis ??? Asthma ??? COPD (chronic obstructive pulmonary disease) (CMS/HCC) ??? Hodgkin's disease (CMS/HCC) ??? PTSD (post-traumatic stress disorder) PAST SURGICAL HISTORY: Past Surgical History: Procedure Laterality Date ??? BACK SURGERY spinal fusion ??? KNEE SURGERY Bilateral ??? TOOTH EXTRACTION [...] for activity change and appetite change. HENT: Negative for congestion, ear discharge, ear pain and sore throat. Respiratory: Negative for cough and shortness of breath. Cardiovascular: Negative for chest pain. Gastrointestinal: Negative for abdominal pain, nausea and vomiting. Musculoskeletal: Negative for back pain and neck pain. Neurological: Negative for dizziness, syncope and light-headedness. Physical Exam Filed Vitals: 02/23/20 1251 BP: 113/77 Pulse: 81 Resp: 18 Temp: 98 ??F (36.7 ??C) TempSrc: Temporal SpO2: 96% Weight: 89.4 kg (197 lb) Height: 5' 3.39 (1.61 m) Physical Exam Constitutional: She is oriented to person, place, and time. She appears well- developed and well-nourished. No distress. HENT: Head: Normocephalic. Nose: Nose normal. Mouth/Throat: Oropharynx is clear and moist. Eyes: Pupils are equal, round, and reactive to light. EOM are normal. Left eye exhibits no chemosis, no discharge and no exudate. No foreign body present in the left eye. Left conjunctiva is not injected. Slit lamp exam: The left eye shows no corneal abrasion and no foreign body. Neck: Normal range of motion. Neck supple. Cardiovascular: Normal rate, regular rhythm and normal heart sounds. Pulmonary/Chest: Effort normal and breath sounds normal. Neurological: She is alert and oriented to person, place, and time. Skin: Skin is warm and dry. Psychiatric: She has a normal mood and affect. Her behavior is normal. Judgment and thought contentnormal. Nursing note and vitals reviewed. Diagnostic Studies / Procedures ELECTROCARDIOGRAMS: No results found for this visit on 02/23/20. LABORATORY STUDIES: No results found for this visit on 02/23/20. IMAGING STUDIES No orders to display ED Course / Medical Decision Making No evidence of foreign body visualized on exam however patient had relief following saline irrigation of the eye. Medications ophthalmic irrigation (EYE WASH) solution 1 drop (1 drop Left Eye Given 02/23/20 1326) tetracaine 0.5 % ophthalmic solution 1 drop (1 drop Left Eye Given 02/23/20 1318) fluorescein (FLUORETS) ophthalmic strip 1 strip (1 strip Left Eye Given 02/23/20 1318) Clinical Impression Eye foreign body, left, initial encounter (Primary) Current Discharge Medication List START taking these medications Details erythromycin 5 MG/GM (0.5%) ophthalmic ointment Place into the left eye 3 (three) times a day for 5days. Qty: 3.5 g, Refills: 0 Class: Eprescribe Pharmacy: [id number] [address] [facility] [address] (Ph #: [phone]) Disposition: Discharge Follow-Up: Dale Vasquez MD [address] [address] Schedule an appointment as soon as possible for a visit in 3 days As needed ELOINA Mascorro 02/23/2020 ELOINA Mascorro 02/23/20 1337 Cosigned by Lauri Fonseca MD at 02/23/2020 3:48 PM CDT * Nakia Rich RN - 02/23/2020 12:57 PM CDT C/o pain left eye onset yesterday. No known injury. documented in this encounter Plan of Treatment Not on file documented as of this encounter Visit Diagnoses Diagnosis Eye foreign body, left, initial encounter- Primary documented in this encounter Administered Medications Inactive Administered Medications - up to 3 most recent administrations Medication Order MAR Action Action Date Dose Rate Site fluorescein (FLUORETS) ophthalmic strip 1 strip 1 strip, Left Eye, Once, 1 dose, On Wed02/23/20 at 1345 Given 02/23/2020 1:18 PM CDT 1 strip ophthalmic irrigation (EYE WASH) solution 1 drop 1 drop, Left Eye, As needed, Other, Starting on Wed02/23/20 at 1325, Until Wed02/23/20 at 1542 Given 02/23/2020 1:26 PM CDT 1 drop Le ft Eye tetracaine 0.5 % ophthalmic solution 1 drop 1 drop, Left Eye, Once, 1 dose, On Wed02/23/20 at 1345 Given 02/23/2020 1:18 PM CDT 1 drop documented in this encounter Active and Recently Administered Medications Times are shown in CDT. Scheduled Medication Order 02/21/2020 02/22/2020 02/23/2020 fluorescein (FLUORETS) ophthalmic strip 1 strip (COMPLETED) 1 strip, Left Eye, Once, 1 dose, On Wed02/23/20 at 1345 1318 (Given - Provid er: Nakia Rich RN) tetracaine 0.5 % ophthalmic solution 1 drop (COMPLETED) 1 drop, Left Eye, Once, 1 dose, On Wed02/23/20 at 1345 1318 (Given - Provid er: Nakia Rich RN) PRN Medication Order 02/21/2020 02/22/2020 02/23/2020 ophthalmic irrigation (EYE WASH) solution 1 drop 1 drop, Left Eye, As needed, Other, Starting on 7/24/20 at 1325, Until 02/23/20 at 1542 1326 (Given - Provid er: Nakia Rich, RN) documented in this encounter Care Teams Chronometer Assembler And Adjuster Relationship Specialty Start Date End Date Blake Lindsey MD [address] [place] [address] PCP - General FAMILY PRACTICE 03/03/19 documented as of this encounter
--- OUTSIDE RECORDS SUMMARY | 2024-07-29 17:44 | XMS_ITS | Encounter Summary ---
Author Organization [facility] Address [address] [place] [address]. [place] [address] [place] [address] Care Team Providers Care Business Systems Administrator Name Role Phone Unavailable Primary Care Provider Unavailabl e Encounter Details Date Type Department Care Team (Latest Contact Info) Description 08/26/2012 Abstract [facility] Medical Group Social History Tobacco Use [...]
--- OUTSIDE RECORDS SUMMARY | 2024-07-29 17:44 | XMS_ITS | Encounter Summary ---
Author Organization [facility] Address [address] [place] [address]. [place] [address] [place] [address] Care Team Providers Care Timber Framer Helper Name Role Phone Unavailable Primary Care Provider Unavailabl e Encounter Details Date Type Department Care Team (Late st Contact Info) Description 05/31/2012 Abstract [facility] Medical Group General Surgery [facility] [address] [facility], [address] [place] [address] [place] [address] [facility] [address] [place] [address] Social History Tobacco Use Types [...] Reading Time Taken Comments Blood Pressure 118/76 05/31/2012 12:24 PM CDT Pulse - - Temperature - - Respiratory Rate - - Oxygen Saturation - - Inhaled Oxygen Concentration - - Weight 86.2 kg (190 lb) 05/31/2012 12:24 PM CDT Height 152.4 cm (5') 05/31/2012 12:24 PM CDT Body Mass Index 37.11 05/31/2012 12:24 PM CDT documented in this encounter Progress Notes * Allen Flores MD - 05/31/2012 10:30 AM CDT Reason For Visit Reason For Visit: Acute Follow-Up Visit Chief Complaint Chief Complaint: 1 week follow up I & D right lower leg No complaints History of Present Illness HPI: s/p debridment necrotic ulcer right lower leg, no complaints Active Problems 1. Anxiety 300.00 2. Asthma 493.90 3. Erythema Nodosum 695.2 4. Open Wound Of The Leg, Complicated 891.1 5. Shortness Of Breath 786.05 6. Skin: A Rash 782.1 7. Tooth Pain 525.9 Surgical History 1. History of Knee Surgery Social History ?? Former Smoker V15.82 Current Meds 1. ALPRAZolam 0.25 MG Oral Tablet; TK 1 T PO D; Therapy: [id number] to 2. Erythromycin Base 500 MG Oral Tablet; TK 1 T PO Q 8 H TAT; Therapy: [id number] to 3. Proventil HFA 108 (90 Base) MCG/ACT Inhalation Aerosol Solution; INHALE 1-2 PUFFS EVERY 4-6 HOURS NEEDED AND DIRECTED; Therapy: [id number] to (Last Rx:[id number]) 4. TraMADol HCl 50 MG Oral Tablet; TK 1/2 T 25MG PO Q 6 TO 8 H PRN FOR PAIN; Therapy: [id number] to Allergies 1. Amoxicillin TABS 2. Penicillins Vitals Vital Signs [Data Includes: Current Encounter] 31May2012 12:24PM Systolic 118 Diastolic 76 BMI Calculated 37.3 BSA Calculated 1.82 Height 5 ft Weight 190 lb Physical Exam Skin - Skin and subcutaneous tissue: Abnormal. Necrotic ulcer right lower leg 1.5 cm with surrounding erythema. Discussion/Summary Discussion Summary: Wound tissue culture positive for pseudomomnas sensitive to cipro Wound improved Conintue local wound care Cipro 500 mg po bid x 10days f/u 1 week Will need venous doppler with reflux evaluation Signatures Electronically signed by : Allen Flores M.D.; May 31 2012 1:30PM (Author) O MECHANIC HELPER documented in this encounter Plan of Treatment Not on file documented as of this encounter Visit Diagnoses Not on filedocumented in this encounter
--- OUTSIDE RECORDS SUMMARY | 2024-07-29 17:44 | XMS_ITS | Encounter Summary ---
Author Organization [facility] Address [address] [place] [address]. [place] [address] [place] [address] Care Team Providers Care Application Support Analyst Name Role Phone Unavailable Primary Care Provider Unavailabl e Encounter Details Date Type Department Care Team (Latest Contact Info) Description 05/11/2012 Abstract [facility] Manasa Ibarra MD Social History [...]
--- OUTSIDE RECORDS SUMMARY | 2024-07-29 17:44 | XMS_ITS | Encounter Summary ---
Author Organization [facility] Address [address] [place] [address]. [place] [address] [place] [address] Care Team Providers Care Television Presenter Name Role Phone Unavailable Primary Care Provider Unavailabl e Encounter Details Date Type Department Care Team (Latest Contact Info) Description 08/19/2012 Abstract [facility] Medical Group Social History Tobacco [...]
--- OUTSIDE RECORDS SUMMARY | 2024-07-29 17:44 | XMS_ITS | Encounter Summary ---
Author Organization [facility] Address [address] [place] [address]. [place] [address] [place] [address] Care Team Providers Care Body Cleaner Name Role Phone Unavailable Primary Care Provider Unavailabl e Encounter Details Date Type Department Care Team (Latest Contact Info) Description 06/22/2012 Abstract [facility] Medical Group Social History Tobacco Use Types [...]
--- OUTSIDE RECORDS SUMMARY | 2024-07-29 17:45 | XMS_ITS | Encounter Summary ---
Author Organization [facility] Address [address] [place] [address]. [place] [address] [place] [address] Care Team Providers Care Form Worker Name Role Phone Unavailable Primary Care Provider Unavailabl e Encounter Details Date Type Department Care Team (Latest Contact Info) Description 03/24/2012 Abstract [facility] Medical Group Manasa Ibarra MD Social [...] Sign Reading Time Taken Comments Blood Pressure 120/78 03/24/2012 2:15 PM CDT Pulse 78 03/24/2012 2:15 PM CDT Temperature - - Respiratory Rate - - Oxygen Saturation - - Inhaled Oxygen Concentration - - Weight 86.6 kg (191 lb) 03/24/2012 2:15 PM CDT Height 160 cm (5' 3 ) 03/24/2012 2:15 PM CDT Body Mass Index 33.83 03/24/2012 2:15 PM CDT documented in this encounter Progress Notes * Manasa Ibarra MD - 03/24/2012 2:00 PM CDT Reason For Visit New pt. Per dentist pt has lost 50% of bone structure in lower teeth and wants blood tests ran because this happened over the past 8-12 months. Lower legs also have cellulitis,used Biaxin,no improvement,and they hurt. History of Present Illness HPI: Patient is a 41 year old female with past medical history of asthma. Asthma is stable She usesinhaler as needed. Today she is here to establish care [...] mass was gone, her teeth are loose. Dentist evaluated her, she advised her to get blood work done. She is here to discuss about it.No jointpain, for two weeks she has noticed some joint stiffness bilateral hand for a few minutes and it gets better on its own. No fever no chills. Social History ?? Former Smoker V15.82 Current Meds 1. Erythromycin Base 500 MG Oral Tablet; TK 1 T PO Q 8 H TAT; Therapy: [id number] to 2. Hydrocodone-Acetaminophen 7.5-750 MG Oral Tablet; TK 1 T PO Q 6 TO 8 H PRN P; Therapy: 60Mvg1951 to 3. TraMADol HCl 50 MG Oral Tablet; TK 1/2 T 25MG PO Q 6 TO 8 H PRN FOR PAIN; Therapy: [id number] to Allergies 1. Amoxicillin TABS Vitals Signs [Data Includes: Current Encounter] 24Mar2012 02:15PM Heart Rate: 78 Respiration: 18 Systolic: 120, LUE, Sitting Diastolic: 78, LUE, Sitting BMI Calculated: 33.84 BSA Calculated: 1.9 Height: 5 ft 3 in Weight: 191 lb LMP: 97% o2 Physical Exam Constitutional General appearance: No acute distress, well appearing and well nourished. Head and Face Head and face: Normal. Eyes Conjunctiva and lids: No swelling, erythema or discharge. Ears, Nose, Mouth, and Throat Otoscopic examination: Tympanic membranes translucent with normal light reflex. Canals patent without erythema. Neck Neck: Supple, symmetric, trachea midline, no masses. Thyroid: Normal, no thyromegaly. Pulmonary Auscultation of lungs: Clear to auscultation. Cardiovascular Auscultation of heart: Normal rate and rhythm, normal S1 and S2, no murmurs. Lymphatic Palpation of lymph nodes in neck: No lymphadenopathy. Skin Skin and subcutaneous tissue: Abnormal. Nodular rash present in bilateral lower extremities, and tender, erythema present. Rash scattered. Assessment 1. Asthma 493.90 2. Skin: A Rash 782.1 3. Anxiety 300.00 Plan Unclear etiology of the rash. We will do CBC CMP AURY panel ESR CRP. We will refer her to dermatology and rheumatology. Diagnosis unclear, it could be some kind of autoimmune disease. rash and gingivitis and loss of gummass could be related. Explained to the patient in detail. We will follow up with labs and inform the patient. It seems to be uncommon disease. Asthma is stable, we will Give her inhaler as needed Anxiety is stable take Xanax as needed. Signatures Electronically signed by : Manasa Ibarra M.D.; Mar 24 2012 3:17PM (Author) NING LEAD * Manasa Ibarra MD - 03/24/2012 2:00 PM CDT Reason For Visit New pt,having problems with teeth. History of Present Illness HPI: patient is a 41 year old female with past medical history of anxiety asthma. She is here to establish care with us. About 6 weeks ago she noticed Nodular rash in her bilateral lower extremities.it's painful She was treated with Bactrim. It did not help her at all. Also she visited the dentistbecause she was having a lot of pain in her gums. X-ray was done and it showed that she had lost about 50% of gum mass. Diagnosis unclear. She does not take any medication regularly. Her asthma and anxiety he is fairly well controlled. Active Problems 1. Anxiety 300.00 2. Asthma 493.90 3. Skin: A Rash 782.1 Family History Positive for breast cancer, lung cancer , thyroid cancer, Bone cancer, Coronary artery disease Social History ?? Former Smoker V15.82 Current Meds 1. Erythromycin Base 500 MG Oral Tablet; TK 1 T PO Q 8 H TAT; Therapy: [id number] to 2. Hydrocodone-Acetaminophen 7.5-750 MG Oral Tablet; TK 1 T PO Q 6 TO 8 H PRN P; Therapy: 99Umo4533 to 3. TraMADol HCl 50 MG Oral Tablet; TK 1/2 T 25MG PO Q 6 TO 8 H PRN FOR PAIN; Therapy: 16Mar2012 to Allergies 1. Amoxicillin TABS Vitals Signs [Data Includes: Current Encounter] 24Mar2012 02:15PM Heart Rate: 78 Respiration: 18 Systolic: 120, LUE, Sitting Diastolic: 78, LUE, Sitting BMI Calculated: 33.84 BSA Calculated: 1.9 Height: 5 ft 3 in Weight: 191 lb LMP: 97% o2 Physical Exam Constitutional General appearance: No acute distress, well appearing and well nourished. Ears, Nose, Mouth, and Throat Otoscopic examination: Tympanic membranes translucent with normal light reflex. Canals patent without erythema. Neck Neck: Supple, symmetric, trachea midline, no masses. Pulmonary Auscultation of lungs: Clear to auscultation. Abdomen Abdomen: Non-tender, no masses. Liver and spleen: No hepatomegaly or splenomegaly. Skin Skin and subcutaneous tissue: Abnormal. Nodule about 2 x 2 cm scattered bilaterally extremities lower erythema present tenderness present. Psychiatric Recent and remote memory: Intact. Mood and affect: Normal. Assessment 1. Asthma 493.90 2. Skin: A Rash 782.1 3. Anxiety 300.00 4. Health Maintenance V70.0 Plan 1. Proventil HFA 108 (90 Base) MCG/ACT Inhalation Aerosol Solution; INHALE 1-2 PUFFS EVERY 4-6 HOURS NEEDED AND DIRECTED; Therapy: 01Oxt5376 to (Last Rx:[id number]) 2. CMP (Comprehensive Metabolic Profile) Requested for: 77Hzn5977 3. Lipid Profile Requested for: 87Mqs4838 4. Anti-Nuclear Antibody Screen Requested for: 24Mar2012 5. CBC w/o Diff (Hemogram) Requested for: 83Gvu6277 6. CRP Requested for: 84Wnx5413 7. ESR Requested for: 10Dds1553 8. HGBA1C (Hemoglobin A1c) Requested for: 24Mar2012 Rash And loss of gum mass, Etiology unclear. It seems to be uncommon. We will do a CBC CMP AURY panel HbA1c ESR CRP, further plan will depend upon the results. Explained to the patient in detail and patient understands it. We will refer her to production engineer track and bottom turner, biopsy of the skin lesions would give us more answers. Signatures Electronically signed by : Manasa Ibarra M.D.; Mar 24 2012 4:18PM (Author) NING LEAD documented in this encounter Plan of Treatment Not on file documented as of this encounter Visit Diagnoses Not on filedocumented in this encounter
--- OUTSIDE RECORDS SUMMARY | 2024-07-29 17:45 | XMS_ITS | Encounter Summary ---
Author Organization [facility] Address [address] [place] [address]. [place] [address] [place] [address] Care Team Providers Care Temporary Receptionist Name Role Phone Unavailable Primary Care Provider Unavailabl e Encounter Details Date Type Department Care Team (Latest Contact Info) Description 05/04/2012 Abstract [facility] Medical Group Manasa Ibarra MD Social [...]
--- OUTSIDE RECORDS SUMMARY | 2024-07-29 17:45 | XMS_ITS | Encounter Summary ---
Author Organization [facility] Address [address] [place] [address]. [place] [address] [place] [address] Care Team Providers Care Poem Writer Name Role Phone Unavailable Primary Care Provider Unavailabl e Encounter Details Date Type Department Care Team (Latest Contact Info) Description 03/25/2012 Abstract [facility] Medical Group Social History Tobacco [...]
--- OUTSIDE RECORDS SUMMARY | 2024-07-29 17:45 | XMS_ITS | Encounter Summary ---
Author Organization [facility] Address [address] [place] [address]. [place] [address] [place] [address] Care Team Providers Care Preschool Education Director Name Role Phone Unavailable Primary Care Provider Unavailabl e Encounter Details Date Type Department Care Team (Latest Contact Info) Description 05/02/2012 Abstract [facility] Medical Group Manasa Ibarra MD Social History [...]
--- OUTSIDE RECORDS SUMMARY | 2024-07-29 17:45 | XMS_ITS | Encounter Summary ---
Author Organization [facility] Address [address] [place] [address]. [place] [address] [place] [address] Care Team Providers Care Medical Device Sales Name Role Phone Unavailable Primary Care Provider Unavailabl e Encounter Details Date Type Department Care Team (Latest Contact Info) Description 03/29/2012 Abstract [facility] Medical Group Manasa Ibarra MD [...]
--- OUTSIDE RECORDS SUMMARY | 2024-07-29 17:45 | XMS_ITS | Encounter Summary ---
Author Organization [facility] Address [address] [place] [address]. [place] [address] [place] [address] Care Team Providers Care Filler Sifter Helper Name Role Phone Unavailable Primary Care Provider Unavailabl e Encounter Details Date Type Department Care Team (Late st Contact Info) Description 12/11/1993 Abstract [facility] [address] [place] [address] , Generic Conversion, Social History Tobacco Use Types Packs/Day Years [...]
--- OUTSIDE RECORDS SUMMARY | 2024-07-29 17:45 | XMS_ITS | Encounter Summary ---
Author Organization [facility] Address [address] [place] [address]. [place] [address] [place] [address] Care Team Providers Care Cheese Wrapper Name Role Phone Unavailable Primary Care Provider Unavailabl e Encounter Details Date Type Department Care Team (Late st Contact Info) Description 03/24/[address] [facility] [address] [place] [address] Manasa Ibarra MD Social History Tobacco Use [...] as of this encounter Visit Diagnoses Diagnosis Routine general medical examination at a health care facility documented in this encounter
--- OUTSIDE RECORDS SUMMARY | 2024-07-29 17:45 | XMS_ITS | Encounter Summary ---
Author Organization [facility] Address [address] [place] [address]. [place] [address] [place] [address] Care Team Providers Care Summer Child Caregiver Name Role Phone Unavailable Primary Care Provider Unavailabl e Encounter Details Date Type Department Care Team (Late st Contact Info) Description 05/06/[address] [facility] [address] [place] [address] Manasa Ibarra MD Social History Tobacco Use [...] as of this encounter Visit Diagnoses Diagnosis Acute pharyngitis documented in this encounter
--- OUTSIDE RECORDS SUMMARY | 2024-07-29 17:45 | XMS_ITS | Encounter Summary ---
Author Organization [facility] Address [facility] [place] [address] [place] [address] Care Team Providers Care Table Worker Packager Name Role Phone Unavailable Primary Care Provider Unavailabl e Encounter Details Date Type Department Care Team (Latest Contact Info) Description 05/06/2012 Abstract [facility] Social History Tobacco Use Types Packs/Day Years Used Date Smoking Tobacco: Never Assessed Comments Unknown Sex and Gender Information Value Date Recorded Sex Assigned at Not on file Legal Sex Female 3:40 AM CDT Gender Identity Not on file Sexual Orientation Not on file documented as of this encounter Progress Notes * Manasa Palacios MD - 05/06/2012 9:31 AM CDT Assessment 1. Tooth Pain 525.9 Plan 1. Diclofenac Sodium 75 MG Oral Tablet Delayed Release; TAKE 1 TABLET 3 times daily PRN TEETH PAIN; Therapy: 06May2012 to (Evaluate:05Jun2012); Last Rx:06May2012 Note Body 05/05/12 REQUEST FOR DICLOFENAC SODIUM 75 MG TID PRN CAME OVER FAX FOR PT. SHE WORKS AT [employer] AND DR PALACIOS GAVE HER THIS AT HER WORK FOR TEETH PAIN #90 WITH NO REFILLS ER WOODEN PENCILS documented in this encounter Plan of Treatment Not on file documented as of this encounter Visit Diagnoses Not on filedocumented in this encounter
--- OUTSIDE RECORDS SUMMARY | 2024-07-29 17:47 | XMS_ITS | Referral Summary ---
Author Organization [facility] Address [address] [facility] [place] [address] Care Team Providers Care Bull Bucker Name Role Phone Blake Lindsey MD Primary Care Provider Source Comments [facility],non-owned Affiliates and Associated Physician Practices is amultiple site organization consisting of ambulatory clinics and hospital sitesin [place], [place], [place] and [place]. This disclosure is being madepursuant to the Care Everywhere program and may not contain all information available regarding this patient. Last updated 18.[facility] Encounters Date Type Department Care Team Description 05/22/2024 Travel 05/22/2024 8:00 AM CDT - 05/22/2024 9:54 AM CDT Hospital Encounter [facility] PFT [address] [place] [address] Dno Manuel MD Discharge Disposition: Home or Self Care 05/22/2024 9:55 AM CDT - 05/22/2024 11:59 PM CDT Hospital Encounter [facility] CAT SCAN [address] [place] [address] Dno Manuel MD Discharge Disposition: Home or Self Care 05/12/2024 Travel 05/12/2024 3:10 PM CDT Office Visit [facility] - Dermatology [address] [place] [address], [place] [id number] Jaun Mascorro MD History of basal cell [...] Migraine Headache 30 tablet 01/12/2019 Active NYSTOP 174175 UNIT/GM powder Apply 1 Dose to affected [...] 08/22/2020 Assessment & Plan (08/22/2020 10:50 AM TRACK COACH): Left sided parotid nodule - previously noted [...] 0 Assessment & Plan (07/11/2020 2:03 PM TRACK COACH): Advised patient to use heat to the [...] 07/11/2020 Assessment & Plan (08/22/2020 10:46 AM TRACK COACH): Continue with previous recommendations. Patient states she has been compliant. Follow up as needed Assessment & Plan (07/11/2020 1:57 PM TRACK COACH): Patient states she has a history of [...] AM CDT Abnormal CT of the chest [place] TANGNTL BX SKIN SINGLE LES Routine 05/12/2024 4:34 PM CDT Neoplasm of uncertain behavior of skin [place] DESTRUCT BENIGN LESION, 1-14 Routine 05/12/2024 4:33 PM CDT Inflamed seborrheic keratosis DERMATOPATHOLOGY Routine 05/12/2024 12:0 0 AM CDT Neoplasm of uncertain behavior of skin HIV-1 HIV-2 ANTIBODY + HIV P24 AG PANEL Routine 04/11/2024 4:[address] of the chest COMPREHENSIVE METABOLIC PANEL STAT 06/09/2022 3:46 PM TRACK COACH Hodgkin lymphoma, unspecified Hodgkin lymphoma type, unspecified [...] Hunter MD - 05/22/2024 12:11 PM CDT [facility] DEPARTMENT OF PULMONARY, CRITICAL CARE, AND SLEEP [...] Pulmonary, Critical Care, and Sleep Medicine [facility] [employer] I have personally reviewed and agree with the fellow's interpretation. Turner Hunter MD Narrative Turner Hunter MD - 05/22/2024 12:11 PM CDT Dar Sheriff MD ? 05/22/2024 ??9:26 PM Don Manuel MD RESPIRATORY THERAPY ORDERABLES * SIX MINUTE WALK (05/22/2024 12:10 PM CDT) Impressions Turner Hunter MD - 05/22/2024 12:10 PM CDT [facility] DEPARTMENT OF PULMONARY, CRITICAL CARE, AND SLEEP [...] MD Pulmonary and Critical Care Fellow [facility] Pager Number [phone] I have personally reviewed and agree with the fellow's interpretation. Turner Hunter MD Narrative Turner Hunter MD - 05/22/2024 12:10 PM CDT Dar Sheriff MD ? 05/22/2024 ??9:26 PM Don Manuel MD RESPIRATORY THERAPY ORDERABLES * COMPLETE PFT W/WO BRONCHODILATOR (05/22/2024 12:09 PM CDT) Impressions Turner Hunter MD - 05/22/2024 12:09 PM CDT [facility] DEPARTMENT OF PULMONARY, CRITICAL CARE, AND SLEEP [...] Pulmonary, Critical Care, and Sleep Medicine [facility] [employer] [facility] I have personally reviewed and [...] > Dictated by Hanna Tyson MD, MD (residential sales rep). I, Madhu Olivier MD have personally reviewed [...] > Dictated by Hanna Tyson MD, MD (residential sales rep). I, Madhu Olivier MD have personally reviewed and interpreted this examination/study. > Interpreting Provider: Madhu Olivier MD on 05/22/2024 7:[address] ORDERABLES * [place] TANGNTL BX SKIN SINGLE LES (05/12/2024 4:34 [...] and sent to dermatopathology. Mera Vitale MD [facility] Dermatology Resident Jaun Mascorro MD PROCEDURE/MINOR SURG ICAL ORDERABLES * [place] DESTRUCT BENIGN LESION, 1-14 (05/12/2024 4:33 PM CDT) Narrative Jaun Mascorro MD - 05/12/2024 4:33 PM CDT Mera Vitale MD ? 05/12/2024 ??4:33 PM Diagnosis and treatment options discussed. Cryotherapy (Liquid Nitrogen) to 3 ISK x 10 seconds each. Number of cycles: 1. Wound care reviewed. Mera Vitale MD [facility] Dermatology Resident Jaun Mascorro MD PROCEDURE/MINOR SURG ICAL ORDERABLES * DERMATOPATHOLOGY (05/12/2024 12:00 AM CDT) Case Report Dermatopathology Report ? Case: [id number] ? Authorizing Provider: ??Jaun Mascorro MD ? [...] specimen consists of a shave biopsy measuring 95b55a2 mm. Jar 0. 4 4:29 PM [facility] DERMATOPATHOLOGY LABORATORY Microscopic Description Specimen A. SKIN, [...] determined by the Dermatopathology Laboratory at [facility], directed by Dr. Buddy Fisher. These tests need not be, and therefore are not, approved by the [place] Food and Drug Administration. The tests are used for clinical purposes. Billing Codes Specimen Charges Stain Charges 76718 1 4 4:29 PM CDT DERMATOPATHOLOGY LABORATORY Embedded Images 4 4:29 PM CDT DERMATOPATHOLOGY LABORATORY Pathology/Cytolog y TISSUE SPECIMEN FROM SKIN / Unknown 05/12/2024 05/15/2024 6:42 AM CDT Jaun Mascorro MD LAB - PATHOLOGY/CYTO LOGY ORDERABLES DERMATOPATHOLOGY LABORATORY [facility] - Department of Dermatology [facility] [address] [facility] [place] [address], [facility] [phone] * HIV-1 HIV-2 ANTIBODY + HIV P24 AG PANEL (04/11/2024 4:52 PM CDT) Pathologist [facility] HIV Antigen/Antibod y 1 & 2 Non-reacti ve Non-react teena 04/11/2024 6:04 PM CDT [facility] Comment:No Laboratory eviden ce of HIV infection. Blood BLOOD SPECIMEN / Unknown Lab Venipuncture / Unknown 04/11/2024 4:52 PM CDT 04/11/2024 5:32 PM CDT Don Manuel MD LAB - CHEMISTRY ORDE HOLLI Performing Organization Address City/[facility]/ZIP Co de Phone Number [facility] [address] [place] [address], [facility] [phone] * (ABNORMAL) COMPREHENSIVE METABOLIC PANEL (06/09/2022 3:46 PM TRACK COACH) Pathologist [facility] BUN 12 7 - 26 mg/dL 06/09/2022 4:29 PM TRACK COACH [facility] Creatinine 0.66 0.56 - 0.96 mg/dL 06/09/2022 4:29 PM [facility] Sodium 140 136 - 145 mmol/L 06/09/2022 4:29 PM [facility] Potassium 3.7 3.5 - 4.5 mmol/L 06/09/2022 4:29 PM [facility] Chloride 111(H) 98 - 107 [...] Lab Venipuncture / Unknown 06/09/2022 3:46 PM TRACK COACH 06/09/2022 4:02 PM [facility] Ashish Peralta MD LAB - CHEMISTRY ORDE OHLLI [facility] Organization Address City/State/ZIP Co de Phone Number [facility] [address] [place] [address], [facility] [phone] * (ABNORMAL) DRUG SCREEN TOX URINE PANEL (01/11/2019 3:03 PM CDT) [facility] Amphetamines Screen Urine Negative Negative : < 1000 ng/mL 01/11/2019 3:33 PM [facility] Barbiturates Screen Urine Negative Negative : < 200 ng/mL 01/11/2019 3:33 PM [facility] Benzodiazepine Screen Urine Negative Negative : < 200 ng/mL 01/11/2019 3:33 PM [facility] Opiates Urine Negative Negative : < 300 ng/mL 01/11/2019 3:33 PM [facility] Cocaine Metabolites Urine Negative Negative : < 300 ng/mL 01/11/2019 3:33 PM [facility] Phencyclidine Screen Urine Negative Negative : < 25 ng/ml 01/11/2019 3:33 PM [facility] Cannabinoids Screen Urine Positive(A) Negative : <50 ng/mL 01/11/2019 3:33 PM [facility] Comment: Positive urine cannabinoids (THC) screening results should be confirmed by another generally accepted non-immunological method such as gas chromatography or mass spectrometry. ? Methadone Screen Urine Negative Negative : < 300 ng/mL 01/11/2019 3:33 PM [facility] Urine URINE / Unknown Collection / Unknown 01/11/2019 3:03 PM CDT 01/11/2019 3:10 PM [facility] - 01/11/2019 3:33 PM [facility] The Urine Toxicology Screening Panel does not screen for Propoxyphene, Meprobamate, Carisoprodol, Trazodone, hgnq-[id number]-xgoqlnj medications and/or volatiles (Acetone, Isopropanol, Methanol or [...] MD LAB - URINE CHEMISTR Y ORDERABLES [address] [phone] * MAMMO BILAT DIAGNOSTIC (11/28/2018 2:20 PM [...] sonography and digital palpation was performed by office inspector and physician throughout the inferior left breast. [...] Hepatitis C Antibody Non-react teena Non-reac tive [facility] Comment: Hepatitis C Antibody screen [...] LAB - CHEMISTRY CHRISTOPHER DE LA GARZA [address] [phone] from Last 3 Months or Most Recently Relevant to Health Maintenance Advance Directives * Full Code (Latest Code Status on File) Date Activated Date Inactivated Comments 01/11/2019 7:38 PM 01/12/2019 3:03 PM Care Teams Bull Bucker Relationship Specialty Start Date End Date Blake Lindsey MD [address] [place] [address] PCP - General 05/20/16
--- OUTSIDE RECORDS SUMMARY | 2024-07-29 17:47 | XMS_ITS | Clinical Summary ---
Author Organization [facility] Address [address] [place] [address] Phone Care Team Providers Care Home Health Billing Specialist Name Role Phone Unavailable Primary Care Provider Unavailabl e Social History Tobacco Use Types Packs/Day Years Used Date Smoking Tobacco: Never Assessed Comments Unknown Sex and Gender Information Value Date Recorded Sex Assigned at Not on file Legal Sex Female 12:45 PM MICROARRAY SPECIALIST Gender Identity Not on file Sexual Orientation Not on file Plan of Treatment Health Maintenance Due Date Last Done Comments Hepatitis C Virus (HCV) Screening 1968 TdaP Immunization 1968 Hepatitis B Immunization (1 of 3 - 19+ 3-dose series) 11/23/1987 Pap Smear 1989 Cervical Cancer Screening (CCS) 1998 HPV/Cotest 1998 Colonoscopy 2013 Colorectal Cancer Screening 2013 Cologuard 2018 Immunochemical Fecal Occult Blood 2018 Mammogram 2018 Zoster Immunization (1 of 2) 2018 SARS-COV-2 Immunization (2022- season) 2023 Influenza Immunization (Seas on Ended) 2024 Meningococcal Immunization (ACWY) Aged Out No longer eligible based on patient's age to complete this topic Pneumococcal Immunization Combined Aged Out No longer eligible based on patient's age to complete this topic Rotavirus Immunization Aged Out No lo nger eligible based on patient's age to complete this topic
--- OUTSIDE RECORDS SUMMARY | 2024-07-29 17:47 | XMS_ITS | Patient Health Record ---
Author Organization [facility] Address [address] [place] [address] Care Team Providers Care Cloth Packer Name Role Phone LORNA WILLAMS REMY Primary Care Provider Unavail able Nia Liu Unavailable [phone] Tia Krishna Unavailable [phone] Migration, Provider Unavailable Unavailable Allergies Allergen (clinical drug ingredient) Drug/Non Drug Allergy documented on EMR Reaction Allergy Type Onset Date Status amoxicillin Amoxicillin Unknown Drug Allergy 12/14/2023 Ac tive Results Component Value Reference Range Notes HISTORICAL LABS Reviewed date:12/07/2023 12:00:00 AM Interpretation: Performing Lab: Notes/Report: Reason For Referral No Information Medications Medication SIG (Take, Route, Frequency, Duration) Notes Start Date End Date Status Potassium Chloride ER 20 MEQ Oral 12/14/2023 Active Mupirocin 2% External 12/14/2023 [...] 90 days total dose 150mg 12/14/2023 Active Ondansetron 4 MG Oral 12/14/2023 Ac tive Montelukast Sodium 10 MG Oral 12/14/2023 Active Furosemide 20 MG Oral 12/14/2023 Ac tive Spironolactone 25 MG Oral 12/14/2023 Active Omeprazole 20 MG Oral 12/14/2023 Ac tive Baclofen 20 MG Oral 12/14/2023 Acti ve Trelegy Ellipta 200-62.5-25 MCG/ACT Inhalation *Pick strength-form from [facility] for eRX* 12/14/2023 Active Fluticasone Propionate Diskus 50 MCG/ACT Inhalation *Reorder from [facility] for eRx and Interaction Alerts* 12/14/2023 Active Ondansetron HCl 4 MG Oral 12/14/2023 Active Nurtec 75 MG Oral *Reorder from [facility] for eRx and Interaction Alerts* 12/14/2023 Active buPROPion HCl ER (XL) 150 MG 1 tablet in the morning Oral Once a day for 90 days 12/14/2023 Active Prazosin HCl 1 MG 1 capsule at bedtime Oral Once a day for 90 days 12/14/2023 Active CHOLECALCIFEROL (VITAMIN D3) 50 MCG (2,000 UNIT) CAPSULE *Reorder from [facility] for eRx and Interaction Alerts* 12/14/2023 Active Cetirizine HCl 10 MG Oral 12/14/2023 Active SUMAtriptan Succinate 50 MG Oral 12/14/2023 Active Nystop 802232 UNIT/GM External 12/14/2023 Active Atorvastatin Calcium 10 MG Oral 12/14/2023 Active LUBIPROSTONE 24 MCG CAPSULE *Reorder from [facility] for eRx and Interaction Alerts* 12/14/2023 Active Gabapentin 300 MG Oral 12/14/2023 A ctive Immunizations Vaccine Route Administration Date Status Comme nts Pneumococcal polysaccharide PPV23 Unknown 08/24/2013 Ad ministered Moderna Covid-19 Vaccine 1st dose Unknown 11/30/2020 Ad ministered Moderna Covid-19 Vaccine 1st dose Unknown 12/31/2020 Ad ministered Influenza virus vaccine, quadrivalent (IIV4), split virus, 0.25 mL dosage Unknown 04/02/2019 Administered Influenza virus vaccine, quadrivalent (IIV4), split virus, 0.25 mL dosage Unknown 04/05/2019 Administered Influenza (split), preservat teena free, 6-35 months Unknown 08/24/2013 Administered Social History Sex Assigned At : Social History Observation Description Sex Assigned At Female Section Notes: Problems Problem Type SNOMED Code ICD Code Onset Dates Problem Status W/U Status Risk Notes Problem Moderate recurrent major depression (48377169) Major depressive disorder, recurrent, moderate (F33.1) Active confirmed Problem Recurrent major depression (91488153) Major depressive disorder, recurrent, in remission, unspecified (F33.40) 4 Active confirmed Problem Generalized anxiety disorder (47268272) Generalized anxiety disorder (F41.1) 4 Active confirmed Problem Posttraumatic stress disorder (36715501) Post-traumatic stress disorder, chronic (F43.12) Active confirmed Vital Signs Heart Rate 109 /min 05/16/2024 Height-cm 160.02 cm 05/16/2024 Blood pressure diastolic 76 mm Hg 05/16/2024 Weight-kg 89.81 kg 05/16/2024 Height 63.00 in 05/16/2024 Blood pressure systolic 107 mm Hg 05/16/2024 Weight 198 lbs 05/16/2024 BMI 35.07 kg/m2 05/16/2024 Encounters Encounter Location Date Provider Diagnosis [facility] [employer] [facility] [address] [address] 08/04/2023 Nia Liu Generalized anxiety disorder F41.1 ; Major depressive disorder, recurrent, moderate F33.1 and Post-traumatic stress disorder, chronic F43.12 [facility] [employer] [facility] [address] [address] 08/18/2023 Nia Liu Post-traumatic stress disorder, chronic F43.12 ; Major depressive disorder, recurrent, moderate F33.1 and Generalized anxiety disorder F41.1 [facility] [employer] [address] [place] [address] 09/01/2023 Nia Liu Post-traumatic stress disorder, chronic F43.12 ; Generalized anxiety disorder F41.1 and Major depressive disorder, recurrent, moderate F33.1 [facility] [employer] [facility] [address] [place] [address] 09/15/2023 Nia Liu Major depressive disorder, recurrent, in remission, unspecified F33.40 ; Generalized anxiety disorder F41.1 ; Post-traumatic stress disorder, chronic F43.12 and Major depressive disorder, recurrent, moderate F33.1 [facility], [facility] [address] [address] 09/15/2023 Tia Krishna [facility], [facility] [address] [address] 09/29/2023 Nia Hemann Generalized anxiety disorder F41.1 ; Major depressive disorder, recurrent, moderate F33.1 and Post-traumatic stress disorder, chronic F43.12 [facility], [facility] [address] [address] 10/14/2023 Nia Hemann Post-traumatic stress disorder, chronic F43.12 and Generalized anxiety disorder F41.1 [facility], [facility] [address] [address] 10/27/2023 Nia Hemann Generalized anxiety disorder F41.1 and Post-traumatic stress disorder, chronic F43.12 [facility], [facility] [address] [address] 11/16/2023 Nia Hemann Post-traumatic stress disorder, chronic F43.12 and Generalized anxiety disorder F41.1 [facility], [facility] [address] [address] 11/30/2023 Nia Hemann Post-traumatic stress disorder, chronic F43.12 and Generalized anxiety disorder F41.1 [facility], [facility] [address] [address] 12/14/2023 Tia Krishna Post-traumatic stress disorder, chronic F43.12 ; Generalized anxiety disorder F41.1 and Major depressive disorder, recurrent, in remission, unspecified F33.40 [facility], [facility] [address] [address] 12/21/2023 Nia Hemann Post-traumatic stress disorder, chronic F43.12 and Generalized anxiety disorder F41.1 [facility], [facility] [address] [address] 01/04/2024 Nia Hemann Post-traumatic stress disorder, chronic F43.12 ; Generalized anxiety disorder F41.1 and Major depressive disorder, recurrent, moderate F33.1 [facility], [facility] [address] [address] 01/25/2024 Nai Hemann Generalized anxiety disorder F41.1 ; Post-traumatic stress disorder, chronic F43.12 and Major depressive disorder, recurrent, moderate F33.1 [facility], [place] [address] [address] 02/22/2024 Nia Hemann Post-traumatic stress disorder, chronic F43.12 ; Generalized anxiety disorder F41.1 and Major depressive disorder, recurrent, moderate F33.1 [facility], [address] [address] 03/02/2024 Nia Hemann Post-traumatic stress disorder, chronic F43.12 ; Generalized anxiety disorder F41.1 and Major depressive disorder, recurrent, moderate F33.1 [facility], [address] [address] 03/29/2024 Nia Hemann Post-traumatic stress disorder, chronic F43.12 ; Generalized anxiety disorder F41.1 and Major depressive disorder, recurrent, moderate F33.1 [facility], [place] [address] [address] 04/25/2024 Nia Hemann Post-traumatic stress disorder, chronic F43.12 ; Generalized anxiety disorder F41.1 and Major depressive disorder, recurrent, moderate F33.1 [facility], [address] [address] 05/09/2024 Nia Hemann Post-traumatic stress disorder, chronic F43.12 ; Generalized anxiety disorder F41.1 and Major depressive disorder, recurrent, moderate F33.1 [facility], [address] [address] 05/16/2024 Tia Hectorharmony Post-traumatic stress disorder, chronic F43.12 ; Major depressive disorder, recurrent, in remission, unspecified F33.40 and Generalized anxiety disorder F41.1 [facility], [address] [address] 05/23/2024 Nia Hemann Post-traumatic stress disorder, chronic F43.12 ; Generalized anxiety disorder F41.1 and Major depressive disorder, recurrent, moderate F33.1 [facility], [place] [address] [address] 06/20/2024 Nia Liu Post-traumatic stress disorder, chronic F43.12 ; Generalized anxiety disorder F41.1 and Major depressive disorder, recurrent, moderate F33.1 [facility] [address] [facility] [address] [place] [address] 07/18/2024 Nia Liu Post-traumatic stress disorder, chronic F43.12 ; Generalized anxiety disorder F41.1 and Major depressive disorder, recurrent, moderate F33.1 [facility] [address] [address] 12/18/2023 Provider Migration [facility] [address] [address] 12/19/2023 Provider Migration Assessments Encounter Date Diagnosis (ICD Code) Assessment Notes Treatment Notes Treatment Clinical Notes Section Notes 01/25/2024 Generalized anxiety disorder (ICD-10 - F41.1) 01/25/2024 Post-traumatic stress disorder, chronic (ICD-10 - F43.12) 12/21/2023 Generalized anxiety disorder (ICD-10 - F41.1) 12/21/2023 Post-traumatic stress disorder, chronic (ICD-10 - F43.12) 12/14/2023 Major depressive disorder, recurrent, in remission, unspecified (ICD-10 - F33.40) 12/14/2023 Generalized anxiety disorder (ICD-10 - F41.1) 12/14/2023 Post-traumatic stress disorder, chronic (ICD-10 - F43.12) 11/30/2023 Generalized anxiety disorder (ICD-10 - F41.1) 11/30/2023 Post-traumatic stress disorder, chronic (ICD-10 - F43.12) 11/16/2023 Generalized anxiety disorder (ICD-10 - F41.1) 11/16/2023 Post-traumatic stress disorder, chronic (ICD-10 - F43.12) 10/27/2023 Generalized anxiety disorder (ICD-10 - F41.1) 10/27/2023 Post-traumatic stress disorder, chronic (ICD-10 - F43.12) 10/14/2023 Generalized anxiety disorder (ICD-10 - F41.1) 10/14/2023 Post-traumatic stress disorder, chronic (ICD-10 - F43.12) 09/29/2023 Major depressive disorder, recurrent, moderate (ICD-10 - F33.1) 09/29/2023 Generalized anxiety disorder (ICD-10 - F41.1) 09/29/2023 Post-traumatic stress disorder, chronic (ICD-10 - F43.12) 09/15/2023 Major depressive disorder, recurrent, moderate (ICD-10 - F33.1) 09/15/2023 Major depressive disorder, recurrent, in remission, unspecified (ICD-10 - F33.40) 09/15/2023 Generalized anxiety disorder (ICD-10 - F41.1) 09/15/2023 Post-traumatic stress disorder, chronic (ICD-10 - F43.12) 09/01/2023 Major depressive disorder, recurrent, moderate (ICD-10 - F33.1) 09/01/2023 Generalized anxiety disorder (ICD-10 - F41.1) 09/01/2023 Post-traumatic stress disorder, chronic (ICD-10 - F43.12) 08/18/2023 Major depressive disorder, recurrent, moderate (ICD-10 - F33.1) 08/18/2023 Generalized anxiety disorder (ICD-10 - F41.1) 08/18/2023 Post-traumatic stress disorder, chronic (ICD-10 - F43.12) 01/04/2024 Generalized anxiety disorder (ICD-10 - F41.1) 01/04/2024 Post-traumatic stress disorder, chronic (ICD-10 - F43.12) 08/04/2023 Major depressive disorder, recurrent, moderate (ICD-10 - F33.1) 08/04/2023 Generalized anxiety disorder (ICD-10 - F41.1) 08/04/2023 Post-traumatic stress disorder, chronic (ICD-10 - F43.12) 06/20/2024 Generalized anxiety disorder (ICD-10 - F41.1) 06/20/2024 Post-traumatic stress disorder, chronic (ICD-10 - F43.12) 05/16/2024 Major depressive disorder, recurrent, in remission, unspecified (ICD-10 - F33.40) cont bupropion XL 150mg qam (did not tolerate decrease) cont quetiapine 150mg qhs (must send as 100mg + 50mg) adjunct mood, anxiety, sleep stable, no new orders; education meds and treatment course RONNY for lab results from PCP cont therapy f/u 5 months, earlier if concerns -discussed transition to new provider as I am leaving the practice after this month 05/16/2024 Post-traumatic stress disorder, chronic (ICD-10 - F43.12) cont prazosin 1mg qhs for PTSD, nightmares (does not take every night) cont therapy 03/29/2024 Generalized anxiety disorder (ICD-10 - F41.1) 03/29/2024 Post-traumatic stress disorder, chronic (ICD-10 - F43.12) 03/02/2024 Generalized anxiety disorder (ICD-10 - F41.1) 03/02/2024 Post-traumatic stress disorder, chronic (ICD-10 - F43.12) 07/18/2024 Generalized anxiety disorder (ICD-10 - F41.1) 07/18/2024 Post-traumatic stress disorder, chronic (ICD-10 - F43.12) 05/23/2024 Generalized anxiety disorder (ICD-10 - F41.1) 05/23/2024 Post-traumatic stress disorder, chronic (ICD-10 - F43.12) 05/09/2024 Generalized anxiety disorder (ICD-10 - F41.1) 05/09/2024 Post-traumatic stress disorder, chronic (ICD-10 - F43.12) 04/25/2024 Generalized anxiety disorder (ICD-10 - F41.1) 04/25/2024 Post-traumatic stress disorder, chronic (ICD-10 - F43.12) 02/22/2024 Generalized anxiety disorder (ICD-10 - F41.1) 02/22/2024 Post-traumatic stress disorder, chronic (ICD-10 - F43.12) 01/04/2024 Major depressive disorder, recurrent, moderate (ICD-10 - F33.1) 02/22/2024 Major depressive disorder, recurrent, moderate (ICD-10 - F33.1) 06/20/2024 Major depressive disorder, recurrent, moderate (ICD-10 - F33.1) 04/25/2024 Major depressive disorder, recurrent, moderate (ICD-10 - F33.1) 05/09/2024 Major depressive disorder, recurrent, moderate (ICD-10 - F33.1) 05/23/2024 Major depressive disorder, recurrent, moderate (ICD-10 - F33.1) 01/25/2024 Major depressive disorder, recurrent, moderate (ICD-10 - F33.1) 03/02/2024 Major depressive disorder, recurrent, moderate (ICD-10 - F33.1) 03/29/2024 Major depressive disorder, recurrent, moderate (ICD-10 - F33.1) 05/16/2024 Generalized anxiety disorder (ICD-10 - F41.1) as above, cont therapy 07/18/2024 Major depressive disorder, recurrent, moderate (ICD-10 - F33.1) Plan Of Treatment Next Appt Details Provider Name:Nia Rylee Liu, 07/31/2024 09:00:00 AM, [employer] [facility] [employer] [facility] [address], [place], [address], Provider Name:Nia Liu, 08/22/2024 01:00:00 PM, [employer] [facility] [employer] [facility] [address] [facility], [place], [address], Provider Name:Tia watkins, 10/11/2024 11:00:00 AM, [employer] [facility] [employer] [facility] [address], [place], [address], Insurance Providers Payer Name Payer Address Payer Phone Subscriber Number Group Number Insured Name Patient Relationship to Insured Coverage Start Date Coverage End Date Medicare-I l Medicare [address] [place] [phone] [id number] [employer] Self - patient is the insured Medicaid-I l Medicaid [address] [address] [place] [address] [id number] [employer] Self - patient is the insured Medical (General) History Medical History History ICD Code Problems: Complex posttraumatic stress d isorder Generalized anxiety disorder Long-term drug therapy Moderate recurrent major depression Obesity Posttraumatic stress disorder Recurrent major depression in remission , Surgical History Surgery Date(Month/Year) Procedure on back (552775369) Procedure on knee (917202738) bilateral Procedure on mouth (124647469) Any surgical history 09/30/2008 Any surgical history 11/06/2012 Other 04/02/2008
--- OUTSIDE RECORDS SUMMARY | 2024-07-29 17:47 | XMS_ITS | Clinical Summary ---
Author Organization [facility] Address [address] [place] [address] Care Team Providers Care Outsole Splicer Name Role Phone Blake Lindsey MD Primary Care Provider [phone] Source Comments [facility],non-owned Affiliates and Associated Physician Practices is amultiple site organization consisting of ambulatory clinics and hospital sitesin [place], [place]. This disclosure is being madepursuant to the Care Everywhere program and may not contain all information available regarding this patient. Last updated 18.[facility] Allergies Active Allergy Reactions Criticality Noted Date [...] Migraine Headache 30 tablet 01/12/2019 Active NYSTOP 426005 UNIT/GM powder Apply 1 Dose to affected [...] 08/22/2020 Assessment & Plan (08/22/2020 10:50 AM PIPELINE ENGINEER): Left sided parotid nodule - previously noted [...] 0 Assessment & Plan (07/11/2020 2:03 PM PIPELINE ENGINEER): Advised patient to use heat to the [...] 07/11/2020 Assessment & Plan (08/22/2020 10:46 AM PIPELINE ENGINEER): Continue with previous recommendations. Patient states she has been compliant. Follow up as needed Assessment & Plan (07/11/2020 1:57 PM PIPELINE ENGINEER): Patient states she has a history of [...] - 05/22/2024 11:59 PM CDT Hospital Encounter [facility] CAT SCAN [address] [place] [address] Don Manuel MD Discharge Disposition: Home or Self Care 05/22/2024 8:00 AM CDT - 05/22/2024 9:54 AM CDT Hospital Encounter [facility] PFT [address] [place] [address] Don Manuel MD Discharge Disposition: Home or Self Care 05/22/2024 Travel 05/12/2024 3:10 PM CDT Office Visit [facility] - Dermatology [address] [place] [address] Jaun Mascorro MD History of basal cell [...] AM CDT Abnormal CT of the chest HI TANGNTL BX SKIN SINGLE LES Routine 05/12/2024 4:34 PM CDT Neoplasm of uncertain behavior of skin HI DESTRUCT BENIGN LESION, 1-14 Routine 05/12/2024 4:33 PM CDT Inflamed seborrheic keratosis DERMATOPATHOLOGY Routine 05/12/2024 12:0 0 AM CDT Neoplasm of uncertain behavior of skin HIV-1 HIV-2 ANTIBODY + HIV P24 AG PANEL Routine 04/11/2024 4:[address] of the chest COMPREHENSIVE METABOLIC PANEL STAT 06/09/2022 3:46 PM PIPELINE ENGINEER Hodgkin lymphoma, unspecified Hodgkin lymphoma type, unspecified [...] Hunter MD - 05/22/2024 12:11 PM CDT [facility] DEPARTMENT OF PULMONARY, CRITICAL CARE, AND SLEEP [...] of Pulmonary, Critical Care, and Sleep Medicine [facility] I have personally reviewed and agree with the fellow's interpretation. MD Prieto Her Christopher R, MD - 05/22/2024 12:11 PM CDT Dar Sheriff MD ? 05/22/2024 ??9:26 PM Don Manuel MD RESPIRATORY THERAPY ORDERABLES * SIX MINUTE WALK (05/22/2024 12:10 PM CDT) Impressions Turner Hunter MD - 05/22/2024 12:10 PM CDT [facility] DEPARTMENT OF PULMONARY, CRITICAL CARE, [...] Sheriff MD Pulmonary and Critical Care Fellow [facility] Pager Number [phone] I have personally reviewed and agree with the fellow's interpretation. MD Prieto Her Christopher R, MD - 05/22/2024 12:10 PM CDT Dar Sheriff MD ? 05/22/2024 ??9:26 PM Don Manuel MD RESPIRATORY THERAPY ORDERABLES * COMPLETE PFT W/WO BRONCHODILATOR (05/22/2024 12:09 PM CDT) Impressions Turner Hunter MD - 05/22/2024 12:09 PM CDT [facility] DEPARTMENT OF PULMONARY, CRITICAL CARE, [...] of Pulmonary, Critical Care, and Sleep Medicine [facility] [employer] [facility] I have [...] > Dictated by Hanna Tyson MD, MD (resident services supervisor). I, Madhu Olivier MD have personally reviewed [...] > Dictated by Hanna Tyson MD, MD (resident services supervisor). I, Madhu Olivier MD have personally reviewed and interpreted this examination/study. > Interpreting Provider: Madhu Olivier MD on 05/22/2024 7:[address] MD [address] ORDERABLES * HI TANGNTL BX SKIN SINGLE LES (05/12/2024 4:34 [...] and sent to dermatopathology. Mera Vitale MD [facility] Dermatology Resident Jaun Mascorro MD PROCEDURE/MINOR SURG ICAL ORDERABLES * HI DESTRUCT BENIGN LESION, 1-14 (05/12/2024 4:33 PM CDT) Narrative Jaun Mascorro MD - 05/12/2024 4:33 PM CDT Mera Vitale MD ? 05/12/2024 ??4:33 PM Diagnosis and treatment options discussed. Cryotherapy (Liquid Nitrogen) to 3 ISK x 10 seconds each. Number of cycles: 1. Wound care reviewed. Mera Vitale MD [facility] Dermatology Resident Jaun Mascorro MD PROCEDURE/MINOR SURG ICAL ORDERABLES * DERMATOPATHOLOGY (05/12/2024 12:00 AM CDT) Case Report Dermatopathology Report ? Case: [id number] ? Authorizing Provider: ??Jaun Mascorro MD ? [...] specimen consists of a shave biopsy measuring [id number] mm. Jar 0. 4:29 PM CDT DERMATOPATHOLOGY [...] characteristic determined by the Dermatopathology Laboratory at [facility], directed by Dr. Buddy Fisher. These tests need not be, and therefore are not, approved by the [place] Food and Drug Administration. The tests are used for clinical purposes. Billing Codes Specimen Charges Stain Charges 36962 1 4 4:29 PM CDT DERMATOPATHOLOGY LABORATORY Embedded Images 4:29 PM CDT DERMATOPATHOLOGY LABORATORY Pathology/Cytolog y TISSUE SPECIMEN FROM SKIN / Unknown 05/12/2024 05/15/2024 6:42 AM CDT Jaun Mascorro MD LAB - PATHOLOGY/CYTO LOGY ORDERABLES DERMATOPATHOLOGY LABORATORY [facility] - Department of Dermatology [facility] [address] [place] [address], [facility] [phone] * HIV-1 HIV-2 ANTIBODY + HIV P24 AG PANEL (04/11/2024 4:52 PM CDT) HIV Antigen/Antibod y 1 & 2 Non-reacti ve Non-react teena 04/11/2024 6:04 PM CDT [facility] Comment:No Laboratory eviden ce of HIV infection. Blood BLOOD SPECIMEN / Unknown Lab Venipuncture / Unknown 04/11/2024 4:52 PM CDT 04/11/2024 5:32 PM CDT Don Manuel MD LAB - CHEMISTRY CHRISTOPHER DE LA GARZA [facility] [address] [place] [address], [facility] [phone] * (ABNORMAL) COMPREHENSIVE METABOLIC PANEL (06/09/2022 3:46 PM PIPELINE ENGINEER) Pathologist [facility] BUN 12 7 - 26 mg/dL 06/09/2022 4:29 PM [facility] Creatinine 0.66 0.56 - 0.96 mg/dL 06/09/2022 4:29 PM [facility] Sodium 140 136 - 145 mmol/L 06/09/2022 4:29 PM [facility] Potassium 3.7 3.5 - 4.5 mmol/L 06/09/2022 4:29 PM [facility] Chloride 111(H) 98 - 107 mmol/L 06/09/2022 4:29 PM [facility] CO2 21(L) 22 - 29 mmol/L 06/09/2022 4:29 PM [facility] Glucose 115 70 - 115 mg/dL 06/09/2022 4:29 PM [facility] Calcium 9.9 8.4 - 10.2 mg/dL 06/09/2022 4:29 PM [facility] Protein Total 7.7 6.0 - 8.3 g/dL 06/09/2022 4:29 PM [facility] Albumin 4.0 3.4 - 5.0 g/dL 06/09/2022 4:29 PM [facility] Bilirubin Total 0.7 0.2 - 1.2 mg/dL 06/09/2022 4:29 PM [facility] Alkaline Phosphatase 116 40 - 150 U/L 06/09/2022 4:29 PM [facility] ALT 16 5 - 55 U/L 06/09/2022 4:29 PM [facility] AST 16 5 - 34 U/L 06/09/2022 4:29 PM [facility] Anion Gap 12 8 - 18 06/09/2022 4:29 PM [facility] BUN/Creatinine Ratio 18 7 - 23 06/09/2022 4:29 PM [facility] Osmolality Calculated 291 270 - 300 mOsm/kg 06/09/2022 4:29 PM [facility] Albumin/Globulin Ratio 1.1 1.1 - 2.3 06/09/2022 4:29 PM [facility] eGFR by CKD-EPI >90 >=90 mL/min/1.7 3 m2 06/09/2022 4:29 PM [facility] Blood BLOOD SPECIMEN / Unknown Lab Venipuncture / Unknown 06/09/2022 3:46 PM PIPELINE ENGINEER 06/09/2022 4:02 PM PIPELINE ENGINEER Ashish Peralta MD LAB - CHEMISTRY CHRISTOPHER DE LA GARZA [facility] Organization Address [facility] Co de Phone Number [address] [id number] [phone] * (ABNORMAL) DRUG SCREEN TOX URINE PANEL (01/11/2019 3:03 PM CDT) [facility] Amphetamines Screen Urine Negative Negative : [...] 3:03 PM CDT 01/11/2019 3:10 PM CDT [facility] - 01/11/2019 3:33 PM CDT The Urine Toxicology Screening Panel does not screen for Propoxyphene, Meprobamate, Carisoprodol, Trazodone, korb-mfa-vtatcgg medications and/or volatiles (Acetone, Isopropanol, Methanol or Ethylene Glycol). Ethanol, Salicylate, Acetaminophen, Tricyclic Antidepressants and several therapeutic drugs may be individually assayed in serum or plasma specimen. Toxicology testing by the [facility] is an aid to medical diagnosis and treatment of patients. No documented chain of custody was maintained. Results are intended to be used for clinical purposes only. ? Kain Wellington MD LAB - [place] [address], [facility] [phone] * MAMMO BILAT DIAGNOSTIC (11/28/2018 2:20 PM [...] sonography and digital palpation was performed by ems helicopter pilot and physician throughout the inferior left breast. [...] Hepatitis C Antibody Non-react teena Non-reac tive [facility] Comment: Hepatitis C Antibody screen indicates [...] LAB - CHEMISTRY CHRISTOPHER DE LA GARZA [address] [phone] from Last 3 Months or Most Recently Relevant to Health Maintenance Advance Directives * Full Code (Latest Code Status on File) Date Activated Date Inactivated Comments 01/11/2019 7:38 PM 01/12/2019 3:03 PM Care Teams Outsole Splicer Relationship Specialty Start Date End Date Blake Lindsey MD [address] [place] [address] PCP - General 05/20/16
--- OUTSIDE RECORDS SUMMARY | 2024-07-29 17:47 | XMS_ITS | Encounter Summary ---
Author Organization [facility] Address [address] [place] [address] Care Team Providers Care Cage Unloader Name Role Phone Unavailable Primary Care Provider Unavailabl e Encounter Details Date Type Department Care Team (Late st Contact Info) Description 07/16/2020 1:[address] GLASSWARE REPLACER Rapid Evaluation [facility] Mobile Testing [address] [place] [address] [id number] Social History Tobacco Use Types Packs/Day Years Used Date Smoking Tobacco: Never Assessed Comments Unknown Sex and Gender Information Value Date Recorded Sex Assigned at Not on file Legal Sex Female 12:45 [address] GLASSWARE REPLACER Gender Identity Not on file Sexual Orientation Not on file documented as of this encounter Plan of Treatment Not on file documented as of this encounter Visit Diagnoses Not on filedocumented in this encounter
--- OUTSIDE RECORDS SUMMARY | 2024-07-29 17:47 | XMS_ITS | Encounter Summary ---
Author Organization [facility] Address [address] [place] [id number] Care Team Providers Care Management Professor Name Role Phone Unavailable Primary Care Provider Unavailabl e Encounter Details Date Type Department Care Team (Late st Contact Info) Description 07/16/2020 Lab Requisition [facility] Mobile Testing [address] [place] [address] [place] [address] [place] [address] Social History Tobacco Use Types Packs/Day Years Used Date Smoking Tobacco: Never Assessed Comments Unknown Sex and Gender Information Value Date Recorded Sex Assigned at Not on file Legal 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
--- OUTSIDE RECORDS SUMMARY | 2024-07-29 17:48 | XMS_ITS | Patient Health Summary ---
Author Organization [facility] Address [address] [place] [address] Care Team Providers Care Building And Construction Manager Name Role Phone Blake Lindsey MD Primary Care Provider [phone] Note from [facility],non-owned Affiliates and Associated Physician Practices is amultiple site organization consisting of ambulatory clinics and hospital sitesin [place], [place], [place] and [place]. This disclosure is being madepursuant to the Care Everywhere program and may not contain all information available regarding this patient. Last updated 18.[facility] Allergies * Amoxicillin(Rash) -Medium Criticality * Codeine(Other) [...] 200mg/24 hours Reasons: Migraine Headache * NYSTOP 528710 UNIT/GM powder(Started 03/06/2019) Apply 1 Dose to [...] (two) tablets by mouth once daily * wethzkadfpm-ftrlgpusv-flmaud (Trelegy Ellipta) 200-62.5-25 MCG/ACT inhaler (Started 04/11/2024) [...] for Abnormal CT of the chest * OK TANGNTL BX SKIN SINGLE LES(Performed 05/12/2024) Performed for Neoplasm of uncertain behavior of skin * OK DESTRUCT BENIGN LESION, 1-14(Performed 05/12/2024) Performed for Inflamed seborrheic keratosis * DERMATOPATHOLOGY(Performed 05/12/2024) Performed for Neoplasm of uncertain behavior of skin * SS-A (SJOGREN'S) 52+60 ANTIBODIES(Performed 04/11/2024) Performed for Abnormal CT of the chest * SMOOTH MUSCLE ANTIBODY W REFLEX TITER(Performed 04/11/2024) Performed for Abnormal CT of the chest * MIKE/FISH TENDER (SONU) ANTIBODY IGG(Performed 04/11/2024) Performed for Abnormal [...] for Abnormal CT of the chest * OK DESTRUCT BENIGN LESION, 1-14(Performed 03/02/2023) Performed for Inflamed seborrheic keratosis * OK DESTROY PREMALIG LESION, 1ST LESION(Performed 03/02/2023) Performed for Actinic keratosis * XR HAND LEFT 3VW OR MORE(Performed 10/07/2022) Performed for Bilateral hand pain * XR HAND RIGHT 3VW OR MORE(Performed 10/07/2022) Performed for Bilateral hand pain * OK TANGNTL BX SKIN SINGLE LES(Performed 10/02/2022) Performed for Neoplasm of uncertain behavior of skin * DERMATOPATHOLOGY(Performed 10/02/2022) Performed for Neoplasm of uncertain behavior of skin * OK DRAIN/INJECT LARGE JOINT/BURSA(Performed 08/05/2022) Performed for Trochanteric bursitis of right hip * OK ENDO NASAL SINUS BX POLYP DEBRID BRENDAN(Performed [...] Basal cell carcinoma (BCC) of scalp * OK DRAIN/INJECT LARGE JOINT/BURSA(Performed 08/14/2021) Performed for Hip [...] OR 2VW(Performed 08/13/2021) Performed for Pain * OK POLYSOM 6/>YRS CPAP 4/> PARM(Performed 08/06/2021) Performed for Central sleep apnea comorbid with prescribed opioid use, Primary central sleep apnea * OK LARYNGOSCOPY,FLEX FIBER,DIAGNOSTIC(Performed 07/01/2021) Performed for Right ear [...] Chronic obstructive pulmonary disease, unspecified COPD type ([facility]) * SIX MINUTE WALK(Performed 03/28/2021) Performed [...] SCREEN - POCT (IP) [facility](Performed 02/13/2019) * OK DRAIN/INJECT LARGE JOINT/BURSA(Performed 01/25/2019) Performed for Primary [...] lymphoma type, unspecified body region (HCC) * OK DRAIN/INJECT LARGE JOINT/BURSA(Performed 11/16/2018) Performed for Chronic [...] 02/21/2014) * PATHOLOGY TISSUE(Performed 02/21/2014) * CYTOLOGY NON-CALCULATOR OPERATOR PANEL (STL)(Performed 02/21/2014) * LDH BLOOD(Performed 02/08/2014) [...] Hunter MD - 05/22/2024 12:11 PM CDT [facility] DEPARTMENT OF PULMONARY, CRITICAL CARE, AND [...] of Pulmonary, Critical Care, and Sleep Medicine [facility] [employer] I have personally reviewed and agree with the fellow's interpretation. MD Prieto Her Christopher R, MD - 05/22/2024 12:11 PM CDT Dar Sheriff MD ? 05/22/2024 ??9:26 PM Don Manuel MD RESPIRATORY THERAPY ORDERABLES * SIX MINUTE WALK (05/22/2024 12:10 PM CDT) Impressions Turner Hunter MD - 05/22/2024 12:10 PM CDT [facility] DEPARTMENT OF PULMONARY, CRITICAL CARE, AND SLEEP [...] Sheriff MD Pulmonary and Critical Care Fellow [facility] Pager Number [phone] I have personally reviewed and agree with the fellow's interpretation. MD Prieto Her Christopher R, MD - 05/22/2024 12:10 PM CDT Dar Sheriff MD ? 05/22/2024 ??9:26 PM Don Manuel MD RESPIRATORY THERAPY ORDERABLES * COMPLETE PFT W/WO BRONCHODILATOR (05/22/2024 12:09 PM CDT) Impressions Turner Hunter MD - 05/22/2024 12:09 PM CDT [facility] DEPARTMENT OF PULMONARY, CRITICAL CARE, AND SLEEP [...] of Pulmonary, Critical Care, and Sleep Medicine [facility] [employer] I have personally [...] > Dictated by Hanna Tyson MD, MD (limited radiology technician). I, Madhu Olivier MD have personally reviewed [...] > Dictated by Hanna Tyson MD, MD (limited radiology technician). I, Madhu Olivier MD have personally reviewed and interpreted this examination/study. > Interpreting Provider: Madhu Olivier MD on 05/22/2024 7:[address] ORDERABLES * OK TANGNTL BX SKIN SINGLE LES (05/12/2024 4:34 [...] and sent to dermatopathology. Mera Vitale MD [facility] Dermatology Resident Jaun Mascorro MD PROCEDURE/MINOR SURG ICAL ORDERABLES * OK DESTRUCT BENIGN LESION, 1-14 (05/12/2024 4:33 PM CDT) Narrative Jaun Mascorro MD - 05/12/2024 4:33 PM CDT Mera Vitale MD ? 05/12/2024 ??4:33 PM Diagnosis and treatment options discussed. Cryotherapy (Liquid Nitrogen) to 3 ISK x 10 seconds each. Number of cycles: 1. Wound care reviewed. Mera Vitale MD [facility] Dermatology Resident Jaun Mascorro MD PROCEDURE/MINOR SURG ICAL ORDERABLES * DERMATOPATHOLOGY (05/12/2024 12:00 AM CDT) Only the most recent of3 resultswithin the time period is included. Case Report Dermatopathology Report ? Case: [id number] ? Authorizing Provider: ??Jaun Mascorro MD ? [...] specimen consists of a shave biopsy measuring 80o63j8 mm. Jar 0. 4:29 PM CDT DERMATOPATHOLOGY [...] characteristic determined by the Dermatopathology Laboratory at [facility], directed by Dr. Buddy Fisher. These tests need not be, and therefore are not, approved by the [place] Food and Drug Administration. The tests are used for clinical purposes. Billing Codes Specimen Charges Stain Charges 92103 1 4:29 PM CDT DERMATOPATHOLOGY LABORATORY Embedded Images 4:29 PM CDT DERMATOPATHOLOGY LABORATORY Pathology/Cytolog y TISSUE SPECIMEN FROM SKIN / Unknown 05/12/2024 05/15/2024 6:42 AM CDT Jaun Mascorro MD LAB - PATHOLOGY/CYTO LOGY ORDERABLES DERMATOPATHOLOGY LABORATORY [facility] - Department of Dermatology [address] [phone] * SS-A (SJOGREN'S) 52+60 ANTIBODIES (04/11/2024 4:52 PM CDT) SS-A 52 Antibody 2 0 - 40 AU/mL 04/13/2024 10:22 PM CDT [facility] ([facility]) Comment: INTERPRETIVE INFORMATION: SSA-52 (Ro52) (SONU) Antibody, [...] - 40 AU/mL 04/13/2024 10:22 PM CDT [facility] [employer] ([facility]) Comment: REFERENCE INTERVAL: SSA-60 (Ro60) (SONU) Antibody, IgG ??29 AU/mL or Less ............. Negative ??30 - 40 AU/mL ................ Equivocal ??41 AU/mL or Greater .......... Positive Performed By: [facility] [address] [place] [address] Human Relations Teacher: Sivakumar Levi MD, PhD CLIA Number: [id number] Blood BLOOD SPECIMEN / Unknown Lab Venipuncture / Unknown 04/11/2024 4:52 PM CDT 04/11/2024 5:31 PM CDT Don Manuel MD LAB - CHEMISTRY CHRISTOPHER DE LA GARZA [facility] [facility]) [address] * MIKE/FISH TENDER (SONU) ANTIBODY IGG (04/11/2024 4:52 PM CDT) Pathologist [facility] Mike/FISH TENDER (SONU) Antibody IgG 2 0 - 19 Units 04/13/2024 12:36 PM CDT [facility] ([facility]) Comment: INTERPRETIVE INFORMATION: Mike/FISH TENDER (SONU) Antibody, IgG ??19 Units or Less ............. Negative ??20 to 39 Units ............... Weak Positive ??40 to 80 Units ............... Moderate Positive ??81 Units or greater .......... Strong Positive Mike/FISH TENDER antibodies are frequently seen in patients with mixed connective tissue disease (MCTD) and are also associated with other systemic autoimmune rheumatic diseases (SARDs) such as systemic lupus erythematosus (SLE), systemic sclerosis, and myositis. Antibodies targeting the Mike/FISH TENDER antigenic complex also recognize Mike antigens, therefore, the Mike antibody response must be considered when interpreting these results. Performed By: [facility] [address] [place] [address] Human Relations Teacher: Sivakumar Levi MD, PhD CLIA Number: [id number] Blood BLOOD SPECIMEN / Unknown Lab Venipuncture / Unknown 04/11/2024 4:52 PM CDT 04/11/2024 5:09 PM CDT Don Manuel MD LAB - CHEMISTRY CHRISTOPHER DE LA GARZA [facility]) [address] * MYOSITIS ANTIBODY PANEL COMPREHENSIVE (04/11/2024 4:52 PM CDT) [facility] SAE1 (SUMO activating enzyme) Ab Negative Negative 04/19/2024 4:47 PM CDT [facility]) NXP2 (Nuclear matrix protein-2) Ab Negative Negative 04/19/2024 4:47 PM CDT [facility]) MDA5 (CADM-140) Ab Negative Negative 2023 4:47 PM CDT [facility] ([facility]) TIF-1 gamma (155 kDa) Ab Negative Negative 04/19/2024 4:47 PM CDT [facility] ([facility]) Myositis Panel Interpretive Data See Note 04/19/2024 4:47 PM CDT [facility] ([facility]) Comment: INTERPRETIVE INFORMATION: Extended Myositis Panel If [...] . . . . . . ??X Mike/FISH TENDER (SONU) Ab, IgG ??. . . . [...] . . . . ??X Fibrillarin (U3 FISH TENDER) Ab, IgG . . . . . [...] developed and its performance characteristics determined by [facility]. It has not been cleared or approved by the US Food and Drug Administration. This test was performed in a CLIA certified laboratory and is intended for clinical purposes. Mi-2 Antibody Negative Negative 04/19/2024 4:47 PM CDT [facility]) P155/140 Antibody Negative Negative 024 4:47 PM CDT [facility]) PL-12 Antibody Negative Negative 04/19/2024 4:47 PM CDT [facility]) PL-7 Antibody Negative Negative 04/19/2024 4:47 PM CDT [facility]) OJ Antibody Negative Negative 04/19/2024 4:47 PM CDT [facility]) EJ Antibody Negative Negative 04/19/2024 4:47 PM CDT [facility]) SRP Antibody Negative Negative 04/19/2024 4:47 PM CDT [facility]) Susanne-1 Antibody IgG 0 0 - 40 AU/mL 04/19/2024 4:47 PM CDT [facility]) Comment: INTERPRETIVE INFORMATION: ??Susanne-1 Antibody, IgG ??29 AU/mL or less.........Negative ??30-40 AU/mL..............Equivocal ??41 AU/mL or greater......Positive Presence of Susanne-1 (antihistidyl transfer RNA [t-RNA' synthetase) antibody is associated with polymyositis and may also be seen in patients with dermatomyositis. Susanne-1 antibody is associated with pulmonary involvement (interstitial lung disease), Raynaud phenomenon, arthritis, and ground service equipment mechanic's hands (implicated in antisynthetase syndrome). KU Antibody Negative Negative 04/19/2024 4:47 PM CDT [facility] ([facility]) Mike/FISH TENDER (SONU) Antibody IgG 3 0 - 19 Units 04/19/2024 4:47 PM CDT [facility] ([facility]) Comment: INTERPRETIVE INFORMATION: Mike/FISH TENDER (SONU) Antibody, IgG ??19 Units or Less ............. Negative ??20 to 39 Units ............... Weak Positive ??40 to 80 Units ............... Moderate Positive ??81 Units or greater .......... Strong Positive Mike/FISH TENDER antibodies are frequently seen in patients with mixed connective tissue disease (MCTD) and are also associated with other systemic autoimmune rheumatic diseases (SARDs) such as systemic lupus erythematosus (SLE), systemic sclerosis, and myositis. Antibodies targeting the Mike/FISH TENDER antigenic complex also recognize Mike antigens, therefore, the Mike antibody response must be considered when interpreting these results. PM/Scl 100 Antibody IgG Negative Negative 04/19/2024 4:47 PM CDT [facility] ([facility]) Comment: INTERPRETIVE INFORMATION: PM/Scl-100 Antibody, IgG by [...] developed and its performance characteristics determined by [facility] [employer]. It has not been cleared or approved by the [place] Food and Drug Administration. This test was performed in a CLIA certified laboratory and is intended for clinical purposes. SS-A 52 Antibody 2 0 - 40 AU/mL 04/19/2024 4:47 PM CDT [facility] [employer] ([facility]) Comment: INTERPRETIVE INFORMATION: SSA-52 (Ro52) (SONU) Antibody, [...] 0 - 40 AU/mL 04/19/2024 4:47 PM [facility] ([facility]) Comment: REFERENCE INTERVAL: SSA-60 (Ro60) (SONU) Antibody, IgG ??29 AU/mL or Less ............. Negative ??30 - 40 AU/mL ................ Equivocal ??41 AU/mL or Greater .......... Positive Fibrillarin (U3 FISH TENDER) Antibody IgG Negative Negative 04/19/2024 4:47 PM [facility] ([facility]) Comment: Interpretive Information: Fibrillarin (U3 FISH TENDER) Antibody, IgG The presence of fibrillarin (U3-FISH TENDER) IgG antibodies in association with an AURY [...] a multi-ethnic cohort of [facility] patients (n=98), U3-FISH TENDER antibodies detected by immunoblot had an agreement of 98.9 percent with the gold standard immunoprecipitation (IP) assay. Approximately 71 percent (5/7) of the borderline U3-FISH TENDER results with AURY nucleolar pattern in this cohort were IP negative. This test was developed and its performance characteristics determined by [facility]. It has not been cleared or approved by the [place] Food and Drug Administration. This test was performed in a CLIA certified laboratory and is intended for clinical purposes. Performed By: [facility] [address] [place] [id number] Human Relations Teacher: Sivakumar Levi MD, PhD CLIA Number: [id number] Blood BLOOD SPECIMEN / Unknown Lab Venipuncture / Unknown 04/11/2024 4:52 PM CDT 04/11/2024 5:31 PM CDT Don Manuel MD LAB - CHEMISTRY CHRISTOPHER DE LA GARZA [facility] ([facility]) [address] [place] [address] * SMOOTH MUSCLE ANTIBODY W REFLEX TITER (04/11/2024 4:52 PM CDT) F-Actin Antibody IgG 2 0 - 19 Units 04/13/2024 5:18 AM CDT [facility] ([facility]) Comment: If F-Actin (Smooth Muscle) Antibody, IgG [...] suspicion for AIH is strong. Performed By: [facility] [employer] [address] [place] [address] Human Relations Teacher: Sivakumar Levi MD, PhD CLIA Number: [id number] Blood BLOOD SPECIMEN / Unknown Lab Venipuncture / Unknown 04/11/2024 4:52 PM CDT 04/11/2024 5:39 PM CDT Don Manuel MD LAB - SEROLOGY ORDER GITA Performing Organization Address City/[facility]/ZIP Co de Phone Number [facility]) [address] [place] [id number] [place] [address] * HIV-1 HIV-2 ANTIBODY + HIV P24 AG PANEL (04/11/2024 4:52 PM CDT) HIV Antigen/Antibod y 1 & 2 Non-reacti ve Non-react teena 04/11/2024 6:04 PM CDT [facility] Comment:No Laboratory eviden ce of HIV infection. Blood BLOOD SPECIMEN / Unknown Lab Venipuncture / Unknown 04/11/2024 4:52 PM CDT 04/11/2024 5:32 PM CDT Don Manuel MD LAB - CHEMISTRY ORDE RABYASH [facility] [address] [place] [id number], [place] [phone] * CYCLIC CITRUL PEPTIDE ANTIBODY IGG/IGA (CCP) (04/11/2024 4:52 PM CDT) CCP Antibodies IgG/IgA 4 0 - 19 units 04/13/2024 3:10 PM CDT [facility] ([facility]) Comment: ?Negative ? <20 ?Weak positive ?20 - 39 ?Moderate positive ??40 - 59 ?Strong positive ?>59 Blood BLOOD SPECIMEN / Unknown Lab Venipuncture / Unknown 04/11/2024 4:52 PM CDT 04/11/2024 5:31 PM CDT Narrative [facility] ([facility]) - 04/13/2024 3:10 PM CDT Performed at: ??01 - [facility] [address] [place], [place] ??[id number] Solar System Installer: Edison Chavez PhD, Phone: ??[phone] Don Manuel MD LAB - SEROLOGY ORDER GITA [facility]) [address] [place] [address], [facility] * DNA ANTIBODY DS CRITHIDIA TITER (04/11/2024 4:52 PM CDT) dsDNA Antibody IgG <1:10 <1:10 2023 12:15 AM CDT [facility] ([facility]) Comment: INTERPRETIVE INFORMATION: Double-Stranded DNA (dsDNA) Antibody, [...] recommendations for testing may be found at [email or web address]. Performed By: [facility] [address] [place] [address] Human Relations Teacher: Sivakumar Levi MD, PhD CLIA Number: [id number] Blood BLOOD SPECIMEN / Unknown Lab Venipuncture / Unknown 04/11/2024 4:52 PM CDT 04/11/2024 5:30 PM CDT Don Manuel MD LAB - SEROLOGY ORDER GITA [facility]) [address] [place] [address], [facility] * ANCA VASCULITIS PANEL (04/11/2024 4:52 PM CDT) Myeloperoxidase Antibody 0 0 - 19 AU/mL 04/14/2024 11:59 PM CDT [facility] ([facility]) Comment: INTERPRETIVE INFORMATION: Myeloperoxidase Abs, IgG ??19 AU/mL or Less ......... Negative ??20-25 AU/mL .............. Equivocal ??26 AU/mL or Greater ...... Positive Approximately 90% of patients with a P-ANCA pattern by IFA have antibodies specific for MPO. Serine Proteinase 3 IgG 0 0 - 19 AU/mL 04/14/2024 11:59 PM CDT [facility] ([facility]) Comment: INTERPRETIVE INFORMATION: Serine Proteinase 3, IgG ??19 AU/mL or Less ........ Negative ??20-25 AU/mL ............. Equivocal ??26 AU/mL or Greater ..... Positive Approximately 85% of patients with a C-ANCA pattern by IFA have antibodies specific for PR3. ANCA Titer IFA <1:20 <1:20 04/14/2024 11:59 PM CDT [facility] ([facility]) ANCA Pattern IFA None Detected None Detected 04/14/2024 11:59 PM CDT [facility] ([facility]) Comment: INTERPRETIVE INFORMATION: ANCA IFA Pattern Neutrophil Cytoplasmic Antibodies (C-ANCA = granular cytoplasmic staining, P-ANCA = perinuclear staining) are found in the serum of over 90 percent of patients with certain necrotizing systemic vasculitides, and usually in less than 5 percent of patients with collagen vascular disease or arthritis. Performed By: [facility] [address] [place] [address] Human Relations Teacher: Sivakumar Levi MD, PhD CLIA Number: [id number] Blood BLOOD SPECIMEN / Unknown Lab Venipuncture / Unknown 04/11/2024 4:52 PM CDT 04/11/2024 5:09 PM CDT Don Manuel MD LAB - CHEMISTRY CHRISTOPHER DE LA GARZA [facility] Organization Address City/State/ZIP Co de Phone Number [facility] ([facility]) [address] [place] [phone], [facility] * PNEUMONITIS HYPERSENSITIVE PANEL (04/11/2024 4:52 PM CDT) Allergen Feather Mix Negative Negative kU/L 04/17/2024 1:59 AM CDT [facility] ([facility]) Aspergillus fumigatus 1 None Detected None Detected 04/17/2024 1:59 AM CDT [facility] ([facility]) Aspergillus fumigatus 6 See Note None Detected 04/17/2024 1:59 AM CDT [facility] ([facility]) Comment: A. fumigatus #6 Ab, Precipitin testing not performed due to reagent backorder. A credit will be issued for this component. Aureobasidium Pullulans None Detected None Detected 04/17/2024 1:59 AM CDT [facility] ([facility]) [place] Serum None Detected None Detected 04/17/2024 1:59 AM CDT [facility] ([facility]) Micropolyspora faeni None Detected None Detected 04/17/2024 1:59 AM CDT [facility] ([facility]) Aspergillus flavus None Detected None Detected 04/17/2024 1:59 AM CDT [facility] ([facility]) Aspergillus fumigatus 2 None Detected None Detected 04/17/2024 1:59 AM CDT [facility] ([facility]) Aspergillus fumigatus 3 None Detected None Detected 04/17/2024 1:59 AM CDT [facility] ([facility]) Saccharomonospora viridis None Detected None Detected 04/17/2024 1:59 AM CDT [facility] ([facility]) Thermoactinomyces candidus None Detected None Detected 04/17/2024 1:59 AM CDT [facility] ([facility]) Comment: Testing includes antibodies directed at Aureobasidium pullulans, Aspergillus flavus, Aspergillus fumigatus #1, Aspergillus fumigatus #2, Aspergillus fumigatus #3, Aspergillus fumigatus #6, Micropolyspora faeni, [place] Serum, Saccharomonospora viridis, and Thermoactinomyces candidus. Allergen Phoma betae <0.10 <=0.34 kU/L 04/17/2024 1:59 AM CDT [facility] ([facility]) Allergen Beef <0.10 <=0.34 kU/L 04/17/2024 1:59 AM CDT [facility] ([facility]) Allergen Pork <0.10 <=0.34 kU/L 04/17/2024 1:59 AM CDT [facility] ([facility]) Immunocap Score See Note 1:59 AM CDT [facility] ([facility]) Comment: REFERENCE INTERVAL: Allergen, Interpretation Less [...] clinical allergy or even anaphylaxis. Performed By: [place] [address] Human Relations Teacher: Sivakumar Levi MD, PhD CLIA Number: [id number] Blood BLOOD SPECIMEN / Unknown Lab Venipuncture / Unknown 04/11/2024 4:52 PM CDT 04/11/2024 5:31 PM CDT Don Manuel MD LAB - CHEMISTRY CHRISTOPHER DE LA GARZA Performing Organization Address City/[facility]/ZIP Co de Phone Number [facility]) [address] [place] [address] * RHEUMATOID FACTOR BLOOD QUANTITATIVE (04/11/2024 4:52 PM CDT) [facility] Rheumatoid Factor <15 <30 IU/mL 04/11/2024 5:44 PM CDT [facility] Rheumatoid Factor Screen Negative Negative 04/11/2024 5:44 PM CDT [facility] Blood BLOOD SPECIMEN / Unknown Lab Venipuncture / Unknown 04/11/2024 4:52 PM CDT 04/11/2024 5:32 PM CDT Don Manuel MD LAB - CHEMISTRY CHRISTOPHER DE LA GARZA [address] [address], [facility] [phone] * AURY BLOOD SCREEN W/REFLEX TITER (04/11/2024 4:52 PM CDT) [facility] AURY IgG None Detected None Detected 04/13/2024 3:43 PM CDT [facility]) Comment: If suspicion of connective tissue disease is strong and AURY EIA is negative, consider testing for AURY by IFA ([id number]). INTERPRETIVE INFORMATION: Anti-Nuclear Antibodies (AURY), IgG by SINCERE Antinuclear Antibodies (AURY), IgG by SINCERE: AURY specimens are screened using enzyme-linked immunosorbent assay (SINCERE) methodology. All SINCERE results reported as Detected are further tested by indirect fluorescent assay (IFA) using HEp-2 substrate with an IgG-specific conjugate. The AURY SINCERE screen is designed to detect antibodies against dsDNA, histones, SS-A (Ro), SS-B (La), Mike, Mike/FISH TENDER, Scl-70, Susanne-1, centromeric proteins, other antigens extracted from the HEp-2 cell nucleus. AURY SINCERE assays have been reported to have lower sensitivities than AURY IFA for systemic autoimmune rheumatic diseases (SARD). Negative results do not necessarily rule out SARD. Performed By: [facility] [employer] [address] [place] [address] Human Relations Teacher: Sivakumar Levi MD, PhD CLIA Number: [id number] Blood BLOOD SPECIMEN / Unknown Lab Venipuncture / Unknown 04/11/2024 4:52 PM CDT 04/11/2024 5:32 PM CDT Don Manuel MD LAB - CHEMISTRY CHRISTOPHER DE LA GARZA [facility] Organization Address City/State/ZIP Co de Phone Number [facility]) [address] [place] [address], [facility] * SS-B (SJOGREN'S) ANTIBODY (04/11/2024 4:52 PM CDT) SS-B Antibody 0 0 - 40 AU/mL 04/13/2024 9:51 PM CDT [facility] ([facility]) Comment: INTERPRETIVE INFORMATION: SSB (La) (SONU) [...] (PSS) also have this antibody. Performed By: [facility] [address] [place] [address] Human Relations Teacher: Sivakumar Levi MD, PhD CLIA Number: [id number] Blood BLOOD SPECIMEN / Unknown Lab Venipuncture / Unknown 04/11/2024 4:52 PM CDT 04/11/2024 5:31 PM CDT Don Manuel MD LAB - CHEMISTRY CHRISTOPHER DE LA GARZA [facility] ([facility]) [address] [place] [address], [facility] * CBC W/ DIFFERENTIAL (04/11/2024 4:52 PM CDT) Only the most recent of158 resultswithin the time period is included. WBC 8.6 4.0 - 10.7 x10E9/L 04/11/2024 5:45 PM [facility] RBC Count 4.62 3.90 - 5.20 x10E12/L 04/11/2024 5:45 PM [facility] Hemoglobin 15.1 11.9 - 15.8 g/dL 04/11/2024 5:45 PM [facility] Hematocrit 43.2 34.8 - 46.1 % 04/11/2024 5:45 PM [facility] MCV 93.5 80.0 - 98.0 fL 04/11/2024 5:45 PM [facility] MCH 32.7 26.7 - 33.6 pg 04/11/2024 5:45 PM [facility] MCHC 35.0 31.7 - 36.3 g/dL 04/11/2024 5:45 PM [facility] RDW-CV 12.9 11.3 - 14.8 % 04/11/2024 5:45 PM [facility] Platelet Count 214 150 - 420 x10E9/L 04/11/2024 5:45 PM [facility] MPV 8.8 7.8 - 11.4 fL 04/11/2024 5:45 PM [facility] Neutrophil % 58.4 41.0 - 74.0 % 04/11/2024 5:45 PM T [facility] Lymphocyte % 30.4 17.0 - 47.0 % 04/11/2024 5:45 PM T [facility] Monocyte % 6.3 3.0 - 11.0 % 04/11/2024 5:45 PM CDT [facility] Eosinophil % 4.1 0.0 - 7.0 % 04/11/2024 5:45 PM T [facility] Basophil % 0.6 0.0 - 1.6 % 04/11/2024 5:45 PM CDT [facility] Immature Granulocytes % 0.2 0.0 - 1.0 % 04/11/2024 5:45 PM T [facility] Neutrophil Absolute 5.00 1.60 - 7.50 x10E9/L 04/11/2024 5:45 PM T [facility] Lymphocyte Absolute 2.60 1.00 - 4.40 x10E9/L 04/11/2024 5:45 PM T [facility] Monocyte Absolute 0.54 0.15 - 1.00 x10E9/L 04/11/2024 5:45 PM CDT [facility] Eosinophil Absolute 0.35 0.00 - 0.60 x10E9/L 04/11/2024 5:45 PM CDT [facility] Basophil Absolute 0.05 0.00 - 0.13 x10E9/L 04/11/2024 5:45 PM [facility] Blood BLOOD SPECIMEN / Unknown Lab Venipuncture / Unknown 04/11/2024 4:52 PM CDT 04/11/2024 5:28 PM CDT Don Manuel MD LAB - HEMATOLOGY ORD ERABLES [facility] [address] [place] [address], [facility] [phone] * OK DESTRUCT BENIGN LESION, 1-14 (03/02/2023 3:25 PM CDT) Narrative Jaun Mascorro MD - 03/02/2023 3:25 PM CDYoan George MD ? 03/02/2023 ??3:25 PM Diagnosis and treatment options discussed. Cryotherapy (Liquid Nitrogen) to 1 lesion for 7 seconds each. Number of cycles: 1. Wound care reviewed. Jaun Mascorro MD PROCEDURE/MINOR SURG ICAL ORDERABLES * OK DESTROY PREMALIG LESION, 1ST LESION (03/02/2023 3:25 PM CDT) Narrative Jaun Mascorro MD - 03/02/2023 3:25 PM CDT Yoan Mendez MD ? 03/02/2023 ??3:25 PM Diagnosis and treatment options discussed. Cryotherapy (Liquid Nitrogen) to 1 lesion for 4-6 seconds. Number of cycles: 1. Wound care reviewed. Jaun Mascorro MD PROCEDURE/MINOR SURG ICAL ORDERABLES * XR HAND LEFT 3VW OR MORE (10/07/2022 9:10 AM LIGHTER CAPTAIN) Anatomical Region Laterality Modality Wrist / Hand Radiographic Jonna ging 10/07/2022 9:56 AM LIGHTER CAPTAIN Impressions 10/07/2022 9:59 AM LIGHTER CAPTAIN IMPRESSION: Minimal degenerative changes. > Interpreting Provider: Emil Chung MD on 10/07/2022 9:59 AM Narrative 10/07/2022 9:59 AM LIGHTER CAPTAIN PROCEDURE: ??XR HAND LEFT 3VW OR MORE, XR HAND RIGHT 3VW OR MORE, DATE/TIME OF EXAM: ??10/07/2022 9:10 AM, LOCATION [facility] INDICATION: M79.641: Bilateral hand pain M79.642: Bilateral [...] MORE,DATE/TIME OF EXAM: 10/07/2022 9:10 AM, LOCATION [facility] INDICATION: M79.641: Bilateral hand pain M79.642: Bilateral [...] RIGHT 3VW OR MORE (10/07/2022 9:09 AM LIGHTER CAPTAIN) Anatomical Region Laterality Modality Wrist / Hand Radiographic Jonna ging 10/07/2022 9:56 AM LIGHTER CAPTAIN Impressions 10/07/2022 9:59 AM LIGHTER CAPTAIN IMPRESSION: Minimal degenerative changes. > Interpreting Provider: Emil Chung MD on 10/07/2022 9:59 AM Narrative 10/07/2022 9:59 AM LIGHTER CAPTAIN PROCEDURE: ??XR HAND LEFT 3VW OR MORE, XR HAND RIGHT 3VW OR MORE, DATE/TIME OF EXAM: ??10/07/2022 9:10 AM, LOCATION ??[facility] INDICATION: M79.641: Bilateral hand pain M79.642: Bilateral [...] MORE,DATE/TIME OF EXAM: 10/07/2022 9:10 AM, LOCATION [facility] INDICATION: M79.641: Bilateral hand pain M79.642: Bilateral [...] Jennifer DUVALL-Luz Maria DIAGNOSTIC IMAGING ORDERABLES * OK TANGNTL BX SKIN SINGLE LES (10/02/2022 1:47 PM LIGHTER CAPTAIN) Narrative Jaun Mascorro MD - 10/02/2022 1:47 PM LIGHTER CAPTAIN Héctor Swenson MD ? 10/02/2022 ??1:48 PM [...] Mascorro MD PROCEDURE/MINOR SURG ICAL ORDERABLES * OK DRAIN/INJECT LARGE JOINT/BURSA (08/05/2022 11:06 AM LIGHTER CAPTAIN) Narrative Wai Lowry MD - 08/05/2022 11:06 AM LIGHTER CAPTAIN Wai Lowry MD ? 08/05/2022 ??2:01 PM INJECTION PROCEDURE NOTE: The injection site was marked. A timeout was performed. Under sterile conditions, without complications, tolerated well by the patient, 4 cc ropivacaine and 80 mg (2 cc) triamcinolone were injected into the right greater trochanteric bursa. Wai Lowry MD PROCEDURE/MINOR SURG ICAL ORDERABLES * OK ENDO NASAL SINUS BX POLYP DEBRID BRENDAN (07/08/2022 9:40 AM LIGHTER CAPTAIN) Narrative Sharan Mike MD - 07/08/2022 9:40 AM LIGHTER CAPTAIN Sharan Mike MD ? 07/08/2022 10:11 AM [...] SOFT TISSUE W CONT (06/18/2022 3:13 PM LIGHTER CAPTAIN) Only the most recent of3 resultswithin the time period is included. Anatomical Region Laterality Modality Head Computed Tomogra phy 06/18/2022 3:25 PM LIGHTER CAPTAIN Impressions 06/19/2022 1:26 PM LIGHTER CAPTAIN IMPRESSION: ?? 1.Stable appearance of the 2 separate hyperdense/enhancing lesions in the superficial lobe of left parotid gland. 2.No significant cervical lymphadenopathy. > Dictated by Lisandro Burris M.D. (limited radiology technician) I, Alberto Akers MD have personally reviewed and interpreted this examination/study. > Interpreting Provider: Alberto Akers MD on 06/19/2022 1:26 PM Narrative 06/19/2022 1:26 PM LIGHTER CAPTAIN PROCEDURE: ??CT NECK SOFT TISSUE W CONT, DATE/TIME OF EXAM: ??06/18/2022 3:13 PM, LOCATION ??[facility] INDICATION: C81.90: Hodgkin lymphoma, unspecified Hodgkin lymphoma [...] SPACE: Normal. PHARYNX/LARYNX/TRACHEA: Normal. RETROPHARYNGEAL SPACE: Normal. CRIMPER OPERATOR SPACE: Normal. CAROTID SPACE: Retropharyngeal course of [...] CONT, DATE/TIME OF EXAM: :13 PM, LOCATION [facility] INDICATION: C81.90: Hodgkin lymphoma, unspecified Hodgkin lymphoma [...] SPACE: Normal. PHARYNX/LARYNX/TRACHEA: Normal. RETROPHARYNGEAL SPACE: Normal. CRIMPER OPERATOR SPACE: Normal. CAROTID SPACE: Retropharyngeal course of [...] lymphadenopathy. > Dictated by Lisandro Burris M.D. (limited radiology technician) I, Alberto Akers MD have personally reviewed and interpreted this examination/study. > Interpreting Provider: Alberto Akers MD on 06/19/2022 1:26 PM Ashish Peralta MD CT ORDERABLES * (ABNORMAL) COMPREHENSIVE METABOLIC PANEL (06/09/2022 3:46 PM LIGHTER CAPTAIN) Only the most recent of88 resultswithin the [...] 18 7 - 23 06/09/2022 4:29 PM LIGHTER CAPTAIN [facility] Osmolality Calculated 291 270 - 300 mOsm/kg 06/09/2022 4:29 PM [facility] Albumin/Globulin Ratio 1.1 1.1 - 2.3 06/09/2022 4:29 PM [facility] eGFR by CKD-EPI >90 >=90 mL/min/1.7 3 m2 06/09/2022 4:29 PM [facility] Blood BLOOD SPECIMEN / Unknown Lab Venipuncture / Unknown 06/09/2022 3:46 PM LIGHTER CAPTAIN 06/09/2022 4:02 PM LIGHTER CAPTAIN Ashish Peralta MD LAB - CHEMISTRY CHRISTOPHER DE LA GARZA Performing Organization Address [facility]/ZIP Co de Phone Number [address] [address], [facility] [phone] * OK DRAIN/INJECT LARGE JOINT/BURSA (08/14/2021 2:09 PM LIGHTER CAPTAIN) Narrative Wai Lowry MD - 08/14/2021 2:09 PM LIGHTER CAPTAIN Wai Lowry MD ? 08/14/2021 ??2:09 PM INJECTION PROCEDURE NOTE: The injection site was marked. A timeout was performed. Under sterile conditions, without complications, tolerated well by the patient, 4 cc ropivacaine and 80 mg (2 cc) triamcinolone were injected into the right greater trochanteric bursa. Wai Lowry MD PROCEDURE/MINOR SURG ICAL ORDERABLES * TRANSFERRIN (08/13/2021 3:48 PM LIGHTER CAPTAIN) Transferrin 314 174 - 382 mg/dL 08/13/2021 4:39 PM LIGHTER CAPTAIN [facility] Blood BLOOD SPECIMEN / Unknown Lab Venipuncture / Unknown 08/13/2021 3:48 PM LIGHTER CAPTAIN 08/13/2021 4:16 PM LIGHTER CAPTAIN Lowell Pop MD LAB - CHEMISTRY ORD VICENTA Performing Organization Address City/[facility]/ZIP Co de Phone Number [address] [address], [facility] [phone] * IRON BLOOD (08/13/2021 3:48 PM LIGHTER CAPTAIN) [facility] Iron 127 40 - 150 ug/dL 08/13/2021 4:39 PM LIGHTER CAPTAIN [facility] Blood BLOOD SPECIMEN / Unknown Lab Venipuncture / Unknown 08/13/2021 3:48 PM LIGHTER CAPTAIN 08/13/2021 4:16 PM LIGHTER CAPTAIN Lowell Pop MD LAB - CHEMISTRY ORD ERABLES [facility] [address] [place] [address], [facility] [phone] * METHYLMALONIC ACID BLOOD (08/13/2021 3:47 PM LIGHTER CAPTAIN) [facility] Methylmalonic Acid 0.15 0.00 - 0.40 umol/L 08/17/2021 1:08 PM LIGHTER CAPTAIN [employer] ([facility]) Comment: INTERPRETIVE INFORMATION: MMA Serum/Plasma, ?Vitamin B12 Status This test was developed and its performance characteristics determined by [facility]. It has not been cleared or approved by the US Food and Drug Administration. This test was performed in a CLIA certified laboratory and is intended for clinical purposes. Performed By: [facility] [address] [place] [address] Human Relations Teacher: Karol Bowen MD Blood BLOOD SPECIMEN / Unknown Lab Venipuncture / Unknown 08/13/2021 3:47 PM LIGHTER CAPTAIN 08/13/2021 4:16 PM LIGHTER CAPTAIN Lowell Pop MD LAB - CHEMISTRY ORD ERABLES [facility] [employer] [facility]) [address] * VITAMIN D 25-HYDROXY (08/13/2021 3:47 PM LIGHTER CAPTAIN) Only the most recent of2 resultswithin the time period is included. Vitamin D, 25 Hydroxy 31.0 30.0 - 80.0 ng/mL 08/13/2021 5:03 PM LIGHTER CAPTAIN [facility] Comment: The recommendations for 25-Hydroxy Vitamin [...] Lab Venipuncture / Unknown 08/13/2021 3:47 PM LIGHTER CAPTAIN 08/13/2021 4:14 PM LIGHTER CAPTAIN Lowell Pop MD LAB - CHEMISTRY ORD ERABLES Performing Organization Address [facility] de Phone Number [address] [address], [facility] [phone] * (ABNORMAL) VITAMIN B12 (08/13/2021 3:47 PM LIGHTER CAPTAIN) Vitamin B12 989(H) 213 - 816 pg/mL 08/13/2021 5:03 PM LIGHTER CAPTAIN [facility] Blood BLOOD SPECIMEN / Unknown Lab Venipuncture / Unknown 08/13/2021 3:47 PM LIGHTER CAPTAIN 08/13/2021 4:14 PM LIGHTER CAPTAIN Lowell Pop MD LAB - CHEMISTRY ORD ERABLES Performing Organization Address [facility] Co de Phone Number [address] [place] [address], [facility] [phone] * FERRITIN (08/13/2021 3:47 PM LIGHTER CAPTAIN) Ferritin 39 13 - 204 ng/mL 08/13/2021 4:57 PM LIGHTER CAPTAIN [facility] Blood BLOOD SPECIMEN / Unknown Lab Venipuncture / Unknown 08/13/2021 3:47 PM LIGHTER CAPTAIN 08/13/2021 4:16 PM LIGHTER CAPTAIN Lowell Pop MD LAB - CHEMISTRY ORD ERABLES [address] [place] [address], [facility] [phone] * XR HIP RIGHT 2VW OR MORE (08/13/2021 2:48 PM LIGHTER CAPTAIN) Anatomical Region Laterality Modality Pelvis, Lower Extremity Radiogra phic Imaging 08/13/2021 2:48 PM LIGHTER CAPTAIN Impressions 08/13/2021 2:50 PM LIGHTER CAPTAIN IMPRESSION: No acute findings. This report was electronically signed by HEMAL GOODE ??on 08/13/2021 2:50 PM . Narrative 08/13/2021 2:50 PM LIGHTER CAPTAIN EXAMINATION: XR PELVIS 1 OR 2VW, XR [...] This report was electronically signed by HEMAL GODOE on 08/13/2021 2:50 PM . Wai Lowry MD DIAGNOSTIC IMAGING O RDERABLES * XR PELVIS 1 OR 2VW (08/13/2021 2:48 PM LIGHTER CAPTAIN) Anatomical Region Laterality Modality Pelvis Radiographic Jonna ging 08/13/2021 2:48 PM LIGHTER CAPTAIN Impressions 08/13/2021 2:50 PM LIGHTER CAPTAIN IMPRESSION: No acute findings. This report was electronically signed by HEMAL GOODE ??on 08/13/2021 2:50 PM . Narrative 08/13/2021 2:50 PM LIGHTER CAPTAIN EXAMINATION: XR PELVIS 1 OR 2VW, XR [...] Lowry MD DIAGNOSTIC IMAGING O RDERABLES * OK POLYSOM 6/>YRS CPAP 4/> PARM (08/06/2021 10:18 AM LIGHTER CAPTAIN) Narrative Lowell Pop MD - 08/06/2021 10:18 AM Lowell Alvares MD ? 08/06/2021 10:19 AM [facility] Accredited by the [place] [employer] Formerly [facility], First Floor [address] [place] [address] Telephone : [phone] ? Medical Records Patient Name: Lakeisha Alejandra : 1970 Date of Study: 08/05/2021 Referring Physician: Blake Lindsey MD Type of Montage: Respiratory Scoring Montage: ??[facility] FULL NIGHT THERAPEUTIC POLYSOMNOGRAM INTERPRETATION Procedure: The polysomnogram was performed with a creative technologist in attendance. ??Central, occipital, and temporal [...] History: Ms. Lakeisha Alejandra, a 50 year [id number] female, was referred to the Sleep Disorders [...] ?fluticasone propionate (FLONASE) 50 MCG/ACT nasal spray, Troutman 2 sprays into each nostril once daily, [...] nares, Disp: 22 g, Rfl: 1 ?NYSTOP [id number] UNIT/GM powder, Apply 1 Dose to affected [...] shunt, diffusion abnormality, etc.). Lowell Pop MD, [facility], [facility], [facility] Crop Consultant, [facility] Professor of Internal Medicine Adjunct Pmp of Neurology Division of Pulmonary, Critical Care, and Sleep Medicine [facility] This note was electronically signed on 08/06/2021. Reba A Dettenmeier APNP-SELENIUM PLANT OPERATOR PROCEDUR E/MINOR SURGICAL ORDERABLES * OK LARYNGOSCOPY,FLEX FIBER,DIAGNOSTIC (07/01/2021 5:16 PM LIGHTER CAPTAIN) Narrative Sharan Mike MD - 07/01/2021 5:16 PM LIGHTER CAPTAIN Sharan Mike MD ? 07/01/2021 ??7:16 PM [...] CULTURE STREP GROUP A (07/01/2021 4:38 PM LIGHTER CAPTAIN) Culture Negative for beta-hemolytic Streptococcus Group A NEVIN 07/03/2021 9:52 AM LIGHTER CAPTAIN [facility] MICROBIOLOGY Microbiology ENTIRE THROAT (SURFACE REGION OF NECK) / Unknown Collection / Unknown 07/01/2021 4:38 PM LIGHTER CAPTAIN 07/01/2021 5:04 PM LIGHTER CAPTAIN Jah Ochoa MD LAB - MICROBIOLOGY O RDERABLES [facility] MICROBIOLOGY [address] [place] [address], [facility] [phone] * AUDIOLOGY/TYMPANOMETRY ORDER (07/01/2021 2:21 PM LIGHTER CAPTAIN) Narrative Leann Cross AuD - 07/01/2021 2:31 PM LIGHTER CAPTAIN History: Lakeisha Alejandra arrived for a hearing [...] a change in hearing is suspected. Andrea aGleano. [facility] Clinical Plastic Card Grader Cardroom [facility] of Otolaryngology/Audiology [facility] [address] [place] [address] ([facility]) [place] [address] Leann Mendez AUDIOLOGY SERVICES O RDERABLES * BLOOD GASES ART+COOX POCT (05/28/2021 1:52 PM CDT) pH Arterial 7.43 7.35 - 7.45 pH 05/28/2021 1:52 PM [facility] pO2 Arterial 86 80 - 100 mmHg 05/28/2021 1:52 PM [facility] pCO2 Arterial 39 35 - 45 mmHg 1:52 PM [facility] BE Arterial 1.6 -2.0 - 2.0 mmol/L 05/28/2021 1:52 PM [facility] Oxyhemoglobin Arterial 95.3 % 05/28/2021 1:52 PM [facility] Dexoyhemoglobin (HHB) % 1.8 % 05/28/2021 1:52 PM [facility] O2 Content Arterial 19.5 Interpret within clinical context mg/dL 05/28/2021 1:52 PM [facility] Hemoglobin by COOX 14.5 12.0 - 15.6 g/dL 05/28/2021 1:52 PM [facility] O2 Saturation Arterial 98 90 - 100 % 05/28/2021 1:52 PM [facility] HCO3 Arterial 26 20 - 30 mmol/l 05/28/2021 1:52 PM [facility] Methemoglobin 1.2 0.0 - 2.0 % 05/28/2021 1:52 PM CDT [facility] Carboxyhemoglobin 1.7 0.0 - 2.0 % 2020 1:52 PM CDT [facility] Comment:Carboxyhemoglobin No rmal Concentration: Non-smokers: 0-2%; Smokers: 0- 9%; Toxic: >20% Blood, arterial ARTERIAL BLOOD SPECIMEN / Unknown 05/28/2021 1:52 PM CDT 05/28/2021 1:52 PM CDT Don Manuel MD LAB - POINT OF CARE ORDERABLES [facility] [address] [id number], [facility] [phone] * BLOOD GAS COOX ART POC NOTIFICATION (05/28/2021 1:35 PM CDT) Comment Notification Label Only - See Separate Report 05/28/2021 3:00 PM CDT [facility] PULMONARY FUNCTION LAB Other MISCELLANEOUS SAMPLES / Unknown Collection / Unknown 05/28/2021 1:35 PM CDT 05/28/2021 1:35 PM CDT Don Manuel MD LAB - BLOOD GASES OR DERABLES [facility] PULMONARY FUNCTION LAB * PFT OXYGEN DESATURATION STUDY (05/28/2021 1:16 PM CDT) Impressions Rosendo Martinez MD - 05/28/2021 1:16 PM CDT [facility] DEPARTMENT OF PULMONARY, CRITICAL CARE, AND [...] mph for a total of 8 minutes. Krsi Halani, MD ( Fellow) Division of Pulmonary, Critical Care, & Sleep Medicine [facility] 05/29/2021 3:57 PM ?? I have reviewed the above study and agree with the interpretation as listed above. Rosendo Martinez MD Pmp of Pulmonary & Critical Care Medicine [facility] Pager [phone] Narrative Rosendo Martinez MD - 05/28/2021 1:16 PM CDT Kris Trimble MD ? 05/29/2021 ??3:56 PM Joe Lomas MD PFT ORDERABLES * COMPLETE PFT W/WO BRONCHODILATOR (05/28/2021 1:16 PM CDT) Impressions Rosendo Martinez MD - 05/28/2021 1:16 PM CDT [facility] DEPARTMENT OF PULMONARY, CRITICAL CARE, AND SLEEP [...] of Pulmonary, Critical Care, & Sleep Medicine [facility] 05/29/2021 , 3:55 PM I have reviewed the above study and agree with the interpretation as listed above. Rosendo Martinez MD Pmp of Pulmonary & Critical Care Medicine [facility] Pager [phone] Narrative Rosendo Martinez MD - 05/28/2021 1:16 [...] Costa MD - 03/28/2021 2:53 PM CDT [facility] DEPARTMENT OF PULMONARY, CRITICAL CARE, AND SLEEP MEDICINE OXYGEN TITRATION STUDY Lakeisha Alejadnra 03/28/2021 INTERPRETATION The test was performed on [...] and agree with the interpretation by the Subsurface Augmentee Operator. Manjidner Costa M.D. Electric Fan Assembler of Internal Medicine Division of Pulmonary, Critical Care and Sleep Medicine [facility] [employer] Narrative Manjinder Costa MD - 03/28/2021 2:53 PM CDT Elicia Lucero I., DO ? 03/28/2021 ??6:06 PM Don Manuel MD PFT ORDERABLES * SIX MINUTE WALK (03/28/2021 2:52 PM CDT) Impressions Manjinder Costa MD - 03/28/2021 2:52 PM CDT [facility] DEPARTMENT OF PULMONARY, CRITICAL CARE, AND SLEEP [...] and agree with the interpretation by the Subsurface Augmentee Operator. Manjinder Costa M.D. Electric Fan Assembler of Internal Medicine Division of Pulmonary, Critical Care and Sleep Medicine [facility] Narrative Manjinder Costa MD - 03/28/2021 2:52 [...] Immunocap Score See Note 3:26 PM CDT [employer] ([facility]) Comment: REFERENCE INTERVAL: Allergen, Interpretation Less [...] clinical allergy or even anaphylaxis. Performed By: [facility] [address] [place] [address] Human Relations Teacher: Karol Bowen MD Blood BLOOD SPECIMEN / Unknown Lab Venipuncture / Unknown 03/28/2021 7:29 AM CDT 03/28/2021 9:40 AM CDT Don Maunel MD LAB - SEROLOGY ORDER GITA [employer] [facility]) [address] [place] [address], [facility] * ALLERGEN RESPIRATORY PROF (IL,[place],IA) IGE (03/28/2021 7:29 AM CDT) [facility] IgE Total 4 <=214 kU/L 03/30/2021 3:18 PM CDT [facility] [employer] ([facility]) Comment: REFERENCE INTERVAL: Immunoglobulin E, Serum Access complete set of age- and/or gender-specific reference intervals for this test in the [facility] ([employer]). Allergen Meier Elder <0.10 <=0.34 kU/L 03/30/2021 3:18 PM CDT [facility] ([facility]) Allergen Alternaria alternata <0.10 <=0.34 kU/L 03/30/2021 3:18 PM CDT [facility] ([facility]) Allergen [place] Maple <0.10 <=0.34 kU/L 03/30/2021 3:18 PM CDT [facility] ([facility]) Allergen Cat Dander <0.10 <=0.34 kU/L 03/30/2021 3:18 PM CDT [facility] ([facility]) Allergen [place] <0.10 <=0.34 kU/L 03/30/2021 3:18 PM CDT [facility] ([facility]) Allergen [place] Tree <0.10 <=0.34 kU/L 03/30/2021 3:18 PM CDT [facility] ([facility]) Allergen Rough Pigweed <0.10 <=0.34 kU/L 03/30/2021 3:18 PM CDT [facility] ([facility]) Allergen Tunisian Thistle <0.10 <=0.34 kU/L 03/30/2021 3:18 PM CDT [facility] ([facility]) Allergen Tono Grass <0.10 <=0.34 kU/L 03/30/2021 3:18 PM CDT [facility] ([facility]) Allergen Hormodendrum <0.10 <=0.34 kU/L 03/30/2021 3:18 PM CDT [facility] ([facility]) Allergen Elm <0.10 <=0.34 kU/L 03/30/2021 3:18 PM CDT [facility] ([facility]) Allergen [place] <0.10 <=0.34 kU/L 03/30/2021 3:18 PM CDT [facility] ([facility]) Allergen A fumigatus IgE <0.10 <=0.34 kU/L 03/30/2021 3:18 PM CDT [facility] ([facility]) Allergen Dermatophagoides pteronyssinus <0.10 <=0.34 kU/L 03/30/2021 3:18 PM CDT [facility] ([facility]) Allergen Dermatophagoides farinae <0.10 <=0.34 kU/L 03/30/2021 3:18 PM CDT [facility] ([facility]) Allergen Bermuda Grass <0.10 <=0.34 kU/L 03/30/2021 3:18 PM CDT [facility] ([facility]) Allergen White Grover <0.10 <=0.34 kU/L 03/30/2021 3:18 PM CDT [facility] ([facility]) Allergen P. Notatum <0.10 <=0.34 kU/L 03/30/2021 3:18 PM CDT [facility] ([facility]) Allergen Common Ragweed <0.10 <=0.34 kU/L 03/30/2021 3:18 PM CDT [facility] ([facility]) Allergen Cockroach British <0.10 <=0.34 kU/L 03/30/2021 3:18 PM CDT [facility] ([facility]) Allergen Chalmers Tree <0.10 <=0.34 kU/L 03/30/2021 3:18 PM CDT [facility] ([facility]) Allergen Buffalo Tree <0.10 <=0.34 kU/L 03/30/2021 3:18 PM CDT [facility] ([facility]) Allergen Pecan Tree <0.10 <=0.34 kU/L 03/30/2021 3:18 PM CDT [facility] ([facility]) Allergen Mouse Epithelium IgE <0.10 <=0.34 kU/L 03/30/2021 3:18 PM CDT [facility] ([facility]) Allergen Mucor racemosus <0.10 <=0.34 kU/L 03/30/2021 3:18 PM CDT [facility] ([facility]) Allergen [place] IgE <0.10 <=0.34 kU/L 03/30/2021 3:18 PM CDT [facility] ([facility]) Allergen Dog Dander <0.10 <=0.34 kU/L 03/30/2021 3:18 PM CDT [facility] ([facility]) Comment: Performed By: [employer] [address] [place] [id number] Human Relations Teacher: Karol Bowen MD Blood BLOOD SPECIMEN / Unknown Lab Venipuncture / Unknown 03/28/2021 7:29 AM CDT 03/28/2021 9:40 AM CDT Don Manuel MD LAB - CHEMISTRY CHRISTOPHER DE LA GARZA [facility] Organization Address City/State/ZIP Co de Phone Number [facility] [email or web address] ([facility]) [address] [phone], [facility] * CT ANGIO CHEST PULM EMBOLISM [...] - 1.30 mg/dL 03/28/2021 7:27 AM CDT [facility] eGFR >60 >60 mL/min/1.7 3 m2 03/28/2021 7:27 AM CDT [facility] Blood BLOOD SPECIMEN / Unknown 03/28/2021 7:07 AM CDT 03/28/2021 7:27 AM CDT Don Manuel MD LAB - POINT OF CARE ORDERABLES Performing Organization Address City/State/[facility] Co de Phone Number [facility] [address] [place] [phone], [facility] [phone] * IR US FINE NEEDLE ASPIRATION (11/04/2020 [...] on 11/04/2020 4:45 PM . Nia Augustin APRN-SELENIUM PLANT OPERATOR IR ORDERABLES * CULTURE ABSCESS+GRAM STAIN (11/04/2020 [...] MICROBIOLOGY [address] [place], [place] [address], [facility] [phone] * FINE NEEDLE ASPIRATION (STL) (11/04/2020 1:36 PM CDT) Case Report Medical Cytology Report ? Case: [id number] ? Authorizing Provider: ??Nia Augustin, [place] ?Collected: ? 11/04/2020 01:36 PM ? Ordering Location: ? [facility] ?Received: ?11/04/2020 03:09 PM ? Pathologist: ? Jaun Davison MD ? Specimens: ?? A) - Lymph Node, parotid left ? B) - Cervical Lymph Node , left deep cervical ? 11/05/2020 5:03 PM CDT [facility] Specimen Adequacy Adequate cellularity for evaluation. [facility] Final Diagnosis Lymph node, left parotid, US-guided FNA: - Neoplasm: Benign (see comment). Lymph node, left level 2B 'deep left cervical', US-guided FNA: - Mixed hematopoietic elements with some atypical forms (see comment). 11/05/2020 5:03 PM [facility] Clinical History The patient is a 49-year-ol woman with history of stage IV classic Hodgkin's lymphoma status post chemotherapy who was found to have a 1.2 cm intraparotid nodule on a re-staging exam. 11/05/2020 5:03 PM CDT [facility] Gross Description A) 2 pap [...] 2: some lymphocytes (13:40) 11/05/2020 5:03 PM [facility] Microscopic Description Parotid (A), [...] in this lymph node. 11/05/2020 5:03 PM [facility] Disclaimer The performance characteristics of all immunohistochemical and indirect immunofluorescence stains (if any) cited in this report were determined by the Histopathology Laboratory of [facility]. Some of these tests rely on the use of analyte-specific reagents and are subject to specific labeling requirements by the US Food and Drug Administration. Such tests were developed by the Histology Laboratory of [facility] and have not been cleared or [...] attending (teaching) pathologist. 11/05/2020 5:03 PM CDT [facility] Embedded Images 11/05/2020 5:03 PM CDT [facility] Pathology/Cytology ENTIRE LYMPH NODE / Unknown Collection / Unknown 11/04/2020 1:36 PM CDT 11/04/2020 3:09 PM CDT Miscellaneous samples (specimen) ENTIRE CERVICAL LYMPH NODE / Unknown 11/04/2020 1:36 PM CDT 11/04/2020 3:09 PM CDT Nia Augustin APRN-SELENIUM PLANT OPERATOR LAB - PATHOLOGY/CY TOLOGY ORDERABLES Performing Organization Address [facility]/State/[facility] de Phone Number [facility] [address] [phone] * FLOW CYTOMETRY BODY FLUID (11/04/2020 1:30 PM CDT) Case Report Flow Cytometry ?Case: [id number] ? Authorizing Provider: ??Nia Augustin, [place] ?Collected: ? 11/04/2020 01:30 PM ? Ordering Location: ? [facility] ? Received: ?11/04/2020 02:49 PM ? Pathologist: ? Sisi Pichardo MD ? Specimen: ?Body Fluid ? 11/04/2020 4:15 PM [facility] Final Diagnosis Lymph node, left neck, flow cytometric immunophenotypic analysis: - No evidence of non-Hodgkin lymphoma. - See interpretation. 11/04/2020 4:15 PM [facility] Flow Cytometry Interpretation The left neck lymph node specimen has a viability of 100%. Within the lymphocyte gate, there is no monoclonal B-cell population identified (kappa:lambda ratio = 1.1:1). There is no aberrant T-cell population seen (CD4:CD8 ratio is 1.4:1). A cytospin prepared from the flow cytometry specimen is reviewed for vendor quality supervisor purposes. The left neck lymph node specimen shows no evidence of involvement by non-Hodgkin lymphoma. Correlation with clinical findings is required. 11/04/2020 4:15 PM [facility] Flow Cytometry Results Differential Result Comment Flow Cell Count /uL 1,100 Total Viability % 100 Lymphocytes % 98 Dim CD45 Region % 0 Monocytes % 1 Granulocytes % 1 11/04/2020 4:15 PM [facility] Client Specimen ID # [id number] 11/04/2020 4:15 PM [facility] Reason for test Hodgkin lymphoma, unspecified Hodgkin lymphoma type, unspecified body region 11/04/2020 4:15 PM [facility] Number of markers 16 were performed. A-2 Flow CD3 A-4 Flow CD10 A-6 Flow CD20 A-7 Flow CD23 A-12 Flow CD2 A-13 Flow CD4 A-16 Flow CD1a A-3 Flow CD5 A-5 Flow CD19 A-8 Flow CD34 A-9 Flow CD45 A-14 Flow CD7 A-15 Flow CD8 A-17 Flow CD30 A-10 Hiram+CD19+ A-11 Lambda+CD19+ 11/04/2020 4:15 PM CDT [facility] Disclaimer Test performed at [facility], [address] [place], [place], [address]. *The established laboratory minimum viability is 70%. [...] complexity clinical testing. 11/04/2020 4:15 PM CDT [facility] Embedded Images 4:15 PM CDT [facility] Fluid BODY FLUID SPECIMEN / Unknown 11/04/2020 1:30 PM CDT 11/04/2020 2:49 PM CDT Comment:Lymph node, cervical , left, FNA Nia Augustin SUPERVISOR PYROTECHNIC LOADING-SELENIUM PLANT OPERATOR LAB - PATHOLOGY/CY TOLOGY ORDERABLES [facility] [place] [place] [address],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 have reviewed this study and agree with the interpretation by thePulmonary Fellow. Manjinder Costa M.D. Electric Fan Assembler of Internal Medicine Division of Pulmonary, Critical Care and Sleep Medicine [facility] [place]on OSEGUERA [facility] ORDERABLES [facility] * (ABNORMAL) DRUG ABUSE PANEL 10-20+ETHANOL URINE NO CONFIRM (04/19/2017 11:33 AM CDT) Only the most recent of3 resultswithin the time period is included. Amphetamines Screen Urine Negative Negative : < 1000 ng/mL [facility] Barbiturates Screen Urine Negative Negative : < 200 ng/mL [facility] Benzodiazepine Screen Urine Positive(A) Negative : < 200 ng/mL [facility] Comment: Positive urine benzodiazepine screening results should be confirmed by another generally accepted non-immunological method such as gas chromatography or mass spectrometry. ? Opiates Urine Positive(A) Negative : < 300 ng/mL [facility] Comment: Positive urine opiate screening results should be confirmed by another generally accepted non-immunological method such as gas chromatography or mass spectrometry. ? Cocaine Metabolites Urine Negative Negative : < 300 ng/mL [facility] Phencyclidine Screen Urine Negative Negative : < 25 ng/ml [facility] Cannabinoids Screen Urine Positive(A) Negative : <50 ng/mL [facility] Comment: Positive urine cannabinoids (THC) screening results should be confirmed by another generally accepted non-immunological method such as gas chromatography or mass spectrometry. ? Methadone Screen Urine Negative Negative : < 300 ng/mL [facility] Urine specimen (specimen) 04/19/2017 11:33 AM CDT 04/19/2017 11:33 AM CDT Narrative [facility] - 04/19/2017 11:52 AM CDT The Urine Toxicology Screening Panel does not screen for Propoxyphene, Meprobamate, Carisoprodol, Trazodone, irqz-zjg-wmlipvl medications and/or volatiles (Acetone, Isopropanol, Methanol or Ethylene Glycol). Ethanol, Salicylate, Acetaminophen, Tricyclic Antidepressants and several therapeutic drugs may be individually assayed in serum or plasma specimen. Toxicology testing by the [facility] is an aid to medical diagnosis and treatment of patients. No documented chain of custody was maintained. Results are intended to be used for clinical purposes only. ? Kain Wellington MD LAB - URINE CHEMISTR Y ORDERABLES [facility] [address] [place] [address], [facility] [phone] * (ABNORMAL) URINALYSIS REFLEX TO MICROSCOPIC NO CULTURE (04/19/2017 11:31 AM CDT) Only the most recent of11 resultswithin the time period is included. Color UA Yellow Straw, Yellow, Colorless, Light Yellow [facility] Clarity UA Clear Clear [facility] Specific [place] UA 1.010 1.001 - 1.030 [facility] pH UA 7.5 5.0 - 8.0 [facility] Protein UA Negative <=20 mg/dL [facility] Glucose UA Negative Negative mg/dL [facility] Ketone UA 40(A) Negative mg/dL [facility] Bilirubin UA Negative Negative mg/dL [facility] Blood UA Trace(A) Negative [facility] Nitrite UA Negative Negative [facility] Leukocyte Esterase Negative Negative [facility] Urobilinogen UA <2.0 <2.0 mg/dL [facility] RBC UA 5 0 - 8 /HPF [facility] WBC UA 1 0 - 2 /HPF [facility] Squamous Epithelial Cells UA 1 0 - 1 /HPF [facility] Mucus UA Few(A) None /LPF [facility] Hyaline Casts UA 2 0 - 2 /LPF [facility] Urine specimen (specimen) 04/19/2017 11:31 AM CDT 04/19/2017 11:33 AM CDT Kain Wellington MD LAB - URINALYSIS ORD ERABLES Performing Organization Address City/[facility]/ZIP Co de Phone Number [address] [phone] * LIPASE BLOOD (04/19/2017 11:03 AM CDT) Only the most recent of2 resultswithin the time period is included. Pathologist [facility] Lipase 10 8 - 78 Units/L [facility] Blood specimen (specimen) BLOOD SPECIMEN / Unknown 04/19/2017 11:03 AM CDT 04/19/2017 11:10 AM CDT Kain Wellington MD LAB - CHEMISTRY ORDE RABLES Performing Organization Address [facility]/ZIP Co de Phone Number [address] [phone] * (ABNORMAL) BASIC METABOLIC PANEL (CALCIUM TOTAL) (04/18/2017 3:51 AM CDT) Only the most recent of50 resultswithin the time period is included. BUN 5(L) 7 - 26 mg/dL [facility] Creatinine 0.6 0.6 - 1.2 mg/dL [facility] Sodium 142 136 - 145 mmol/L [facility] Potassium 3.3(L) 3.5 - 4.5 mmol/L [facility] Chloride 109(H) 98 - 107 mmol/L [facility] CO2 24 22 - 29 mmol/L [facility] Glucose 96 70 - 115 mg/dL [facility] Calcium 8.1(L) 8.4 - 10.2 mg/dL [facility] Anion Gap 12 8 - 18 [facility] BUN/Creatinine Ratio 8 7 - 23 [facility] Osmolality Calculated 291 270 - 300 mOsm/kg [facility] eGFR >60 >60 mL/min/1.7 3 m2 [facility] Blood specimen (specimen) BLOOD SPECIMEN / Unknown 04/18/2017 3:51 AM CDT 04/18/2017 4:12 AM CDT Yanelis Alas MD LAB - CHEMISTRY [facility] Performing Organization Address City/[facility]/ZIP Co de Phone Number [address] [phone] * MAGNESIUM BLOOD (04/18/2017 3:51 AM CDT) Only the most recent of82 resultswithin the time period is included. Magnesium 1.8 1.6 - 2.6 mg/dL [facility] Blood specimen (specimen) BLOOD SPECIMEN / Unknown 04/18/2017 3:51 AM CDT 04/18/2017 4:12 AM CDT Yanelis Alas MD LAB - CHEMISTRY [facility] Performing Organization Address [facility] Co de Phone Number [address] [phone] * HEPATITIS B SURFACE ANTIGEN W RFLX CONFIRMATION (04/18/2017 3:51 AM CDT) Only the most recent of2 resultswithin the time period is included. Hepatitis B Virus Surface Antigen Non-reacti ve Non-reacti ve [facility] Blood specimen (specimen) BLOOD SPECIMEN / Unknown 04/18/2017 3:51 AM CDT 04/18/2017 4:16 AM CDT Yanelis Alas MD LAB - CHEMISTRY [facility] Performing Organization Address [facility] [place] [address], [facility] [phone] * T4 FREE (04/18/2017 3:51 AM CDT) Only the most recent of2 resultswithin the time period is included. Pathologist [facility] T4 Free 0.9 0.7 - 1.5 ng/dL [facility] Blood specimen (specimen) BLOOD SPECIMEN / Unknown 04/18/2017 3:51 AM CDT 04/18/2017 4:12 AM CDT Yanelis Alas MD LAB - CHEMISTRY [facility] Performing Organization Address City/[facility]/ZIP Co de Phone Number [address] [phone] * CORTISOL BLOOD AM (04/18/2017 3:51 AM CDT) [facility] Cortisol AM 5.0 3.7 - 19.4 mcg/dL [facility] Blood specimen (specimen) BLOOD SPECIMEN / Unknown 04/18/2017 3:51 AM CDT 04/18/2017 4:12 AM CDT Yanelis Alas MD LAB - CHEMISTRY [facility] Performing Organization Address [facility] Co de Phone Number [address] [phone] * HEPATITIS C AB SCREEN RFLX PCR QUANT (04/18/2017 3:51 AM CDT) [facility] Hepatitis C Antibody Non-react etena Non-reac tive [facility] Comment: Hepatitis C Antibody screen indicates [...] [facility] Performing Organization Address [facility]/ZIP Co de Phone Number [address] [phone] * EKG 12-LEAD (04/18/2017 12:00 AM CDT) Only the most recent of9 resultswithin the time period is included. EKG [facility] Comment: Exam Date/Time: ?? Apr 18 [...] rhythm Confirmed by Andie Watkins LNanda ([id number]), manager editorial [employer] ([id number]) on 04/27/2017 12:09:34 PM Referred By: REFERRING NO ? Confirmed By:David Watkins M.D. 04/18/2017 Yanelis Alas MD ECG ORDERABLES [facility] * CT ABDOMEN PELVIS W CONTRAST [...] 11:30 PM. Dictated by Frank Nixon MD (limited radiology technician). I, Dr. LEOBARDO LE M.D. have personally [...] the right aspect of the partially sacralized X2hepluxwlj body is unchanged from prior PET/CT where [...] 11:30 PM. Dictated by Frank Nixon MD (limited radiology technician). I, Dr. LEOBARDO LE M.D. have personally reviewed and interpreted thisexamination/study. This report was electronically signed by LEOBARDO LE M.D. on04/18/2017 9:08 AM . Amparo Tompkins MD CT ORDERABLES * GLUCOSE - POINT OF CARE (AMB) U (04/17/2017 8:50 PM CDT) Only the most recent of26 resultswithin the time period is included. Amparo Tompkins MD LAB - POINT OF CARE ORDERABLES [facility] * HCG URINE QUALITATIVE - POCT (IP) [facility] (04/17/2017 8:50 PM CDT) Test Urine neg [facility] Urine specimen (specimen) 04/17/2017 8:50 PM CDT Amparo Tompkins MD LAB - POINT OF CARE ORDERABLES Performing Organization Address [facility] Co de Phone Number [facility] * XR CHEST 1VW PORTABLE (04/17/2017 8:25 PM CDT) Only the most recent of10 resultswithin the time period is included. Anatomical Region Laterality Modality Chest Other Impressions 04/18/2017 12:29 PM CDT IMPRESSION: Low lung volumes with bibasilar opacities, likely representing atelectasis and/or airspace disease with possible small effusions. Dictated by Colin Nick MD (limited radiology technician). I, Dr. LEOBARDO LE M.D. have personally [...] small effusions. Dictated by Colin Nick MD (limited radiology technician). I, Dr. LOEBARDO LE M.D. have personally reviewed and interpreted thisexamination/study. This report was electronically signed by LEOBARDO LE M.D. on04/18/2017 12:29 PM . Amparo Tompkins MD DIAGNOSTIC IMAGING O RDERABLES * (ABNORMAL) GLUCOSE ACCUCHECK (04/17/2017 8:13 PM CDT) Only the most recent of9 resultswithin the time period is included. Glucose, Fingerstick 118(H) 70-115mg/d L mg/dL [facility] Comment:Coal Crusher Operator: JANE ALVARADO 04/17/2017 8:13 PM CDT Dylan Pollack MD LAB - CHEMISTRY [facility]) * LACTIC ACID BLOOD (04/17/2017 8:09 PM CDT) Lactic Acid-Stat 1.1 0.5 - 2.0 mmol/L [facility] Blood specimen (specimen) BLOOD SPECIMEN / Unknown 04/17/2017 8:09 PM CDT 04/17/2017 8:17 PM CDT Amparo Tompkins MD LAB - CHEMISTRY [facility] [address] [phone] * TROPONIN I (04/17/2017 8:09 PM CDT) Only the most recent of4 resultswithin the time period is included. [facility] Troponin I <0.010 <0.032 ng/mL [facility] Blood specimen (specimen) BLOOD SPECIMEN / Unknown 04/17/2017 8:09 PM CDT 04/17/2017 8:17 PM CDT Amparo Tompkins MD LAB - CHEMISTRY [facility] [address] [phone] * (ABNORMAL) D-DIMER (02/18/2017 9:22 PM CDT) [facility] D-Dimer Quantitative 0.67(H) <=0.50 mcg/mL FEU [facility] Comment: In the absence of clinical [...] - COAGULATION OR DERABLES Performing Organization Address City/State/[facility] Co de Phone Number [address] [phone] * XR CHEST 1VW (02/18/2017 4:46 PM [...] RIGHT 4VW OR MORE (09/09/2016 10:34 AM LIGHTER CAPTAIN) Only the most recent of2 resultswithin the time period is included. Anatomical Region Laterality Modality Lower Extremity Other Impressions 09/09/2016 12:01 PM LIGHTER CAPTAIN Impression: Mild osteoarthritis of both knees. This report was electronically signed by ALMAS GREEN M.D. ??on 09/09/2016 12:01 PM . Narrative 09/09/2016 12:01 PM LIGHTER CAPTAIN Examination: 1. Left knee minimum 4 views [...] XR THORACIC SPINE 2VW (07/12/2016 3:21 PM LIGHTER CAPTAIN) Only the most recent of15 resultswithin the time period is included. Anatomical Region Laterality Modality Spine Other Impressions 07/13/2016 8:30 AM LIGHTER CAPTAIN IMPRESSION: The patient is status post instrumented posterior spinal fusion from C5 through T12 with paired vertical rods, pedicle screws, and a cerclage wire. The instrumentation appears intact without evidence of failure. A T6 compression fracture is unchanged. No new fractures are identified. The spinal alignment is normal. Dictated by Peter Pineda MD (limited radiology technician). Dr. YVES Muller M.D. have personally reviewed and interpreted this examination/study. This report was electronically signed by YVES MARX M.D. ??on 07/13/2016 8:30 AM . Narrative 07/13/2016 8:30 AM LIGHTER CAPTAIN EXAMINATION: XR SPINE THORACIC 2 VWS HISTORY: [...] status post instrumented posterior spinal fusion from P0jwxgghc T12 with paired vertical rods, pedicle screws, and a cerclagewire. The instrumentation appears intact without evidence of failure. A [id number] fracture is unchanged. No new fractures are identified. The spinal alignment is normal. Dictated by Peter Pineda MD (limited radiology technician). Dr. YVES Muller M.D. have personally reviewed [...] Type 22F 1.30 ug/mL [facility] ([employer]) Pneumo Antibody Type 23F 0.40 ug/mL [facility] ([facility]) Pneumo Antibody Type 33F 0.56 ug/mL [facility] ([facility]) Interpretation Pneumo Serotype See Note [facility] Comment: INTERPRETIVE INFORMATION: Streptococcus pneumoniae Antibodies, IgG [...] SHANKS, Sharona JW, Lan X, Prince CRAMER, Luacs WATSON. Multilaboratory assessment of threshold versus fold-change algorithms for minimizing analytical variability in multiplexed pneumococcal IgG measurements. Clin Vaccine Immunol. 2014;21(7):982-8. 2. Yashira SHANKS, Lucas WATSON. Use and Clinical Interpretation of Pneumococcal Antibody Measurements in the Evaluation of Humoral Immune Function. Clin Vaccine Immunol. 2015;22(2):148-152. Test developed and characteristics determined by [employer]. See Compliance Statement B: [email or web address] 12/09/2015 3:14 PM CDT 12/09/2015 3:24 PM CDT Castillo Velásquez MD LAB - CHEMISTRY MELISSAReymundo GANDHIYASH [facility] Organization Address City/State/ZIP Co de Phone Number [facility] ([place]) * MRI SHOULDER LEFT [...] Virk MD MR ORDERABLES * FLOW CYTOMETRY [facility] PANEL (10/25/2015 9:19 AM CDT) [facility] Flow Cytometry Specimen: Blood Reference:[id number] Reason for test: Markers: 9 Flow Cytometry [...] %CD19 & CD27+IgD- ? 7 %CD19 & OU86-NrZ+ ? 98 Cell Region A: Lymphocytes Surface [...] ?0-1 ? IgD ? 3-15 CD16 ?0-23 ?Hiram ? 3-12 CD19 ?8-24 ?Lambda ?3-7 CD20 ?7-17 ?HLA-DR ?9-25 CD23 ?2-16 ?TdT ? 0 Test performed at [facility], [address] [place] [address] ??[id number] This test was developed and its performance [...] perform high complexity clinical testing. By law [place], CD4 lymphocyte counts on patients with HIV infection must be reported by the physician to the [facility] Health authority. [facility] ([place]) Blood specimen (specimen) BLOOD SPECIMEN / Unknown 10/25/2015 9:19 AM CDT 10/25/2015 10:05 AM CDT Castillo Velásquez MD LAB - PATHOLOGY/CYTO LOGY ORDERABLES [facility] ([place]) * TETANUS ANTIBODY (10/25/2015 9:19 AM CDT) Tetanus Antibody IgG 0.57 <0.10 IU/mL [facility] ([place]) Comment: ? Interpretation: ? Non-Protective ?<0.10 ? Protective ? >=0.10 Results for this test are for research purposes only by the assay's flight hostess. ??The performance characteristics of this product have not been established. ??Results should not be used as a diagnostic procedure without confirmation of the diagnosis by another medically established diagnostic product or procedure. Blood specimen (specimen) BLOOD SPECIMEN / Unknown 10/25/2015 9:19 AM CDT 10/25/2015 10:05 AM CDT Narrative [facility] ([place]) - 10/29/2015 11:20 AM CDT 0.4 ml Serum, Red-top tube or gel-barrier tube, room temperature. Performed at: ??01 - [address] ??[id number] Solar System Installer: Kendrick Cardenas MD, Phone: ??[phone] Castillo Velásquez MD LAB - CHEMISTRY CHRISTOPHER DE LA GARZA Performing Organization Address [facility]/State/[facility] Phone Number [facility] SILAS) * (ABNORMAL) DIPHTHERIA ANTIBODY (10/25/2015 9:19 AM CDT) Diphtheria Antitoxoid Antibody <0.10(L) <0.10 IU/mL [facility] ([facility] Comment: ? Interpretation: ? Non-Protective ?<0.10 ? Protective ? >=0.10 For research use only. Blood specimen (specimen) BLOOD SPECIMEN / Unknown 10/25/2015 9:19 AM CDT 10/25/2015 10:05 AM CDT Narrative [facility] ([place]) - 10/30/2015 1:16 PM CDT 0.5 mL serum red-top tube or gel-barrier tube, Refrigerate Performed at: ??01 - [address] ??[id number] Solar System Installer: Kendrick Cardenas MD, Phone: ??[phone] Castillo Velásquez MD LAB - CHEMISTRY CHRISTOPHER DE LA GARZA Performing Organization Address [facility] Co de Phone Number [facility] * (ABNORMAL) COMPLEMENT TOTAL (10/25/2015 9:19 AM CDT) Pathologist [facility] Complement Total CH50 >60(H) 42 - 60 U/mL [facility] ([facility]) Blood specimen (specimen) BLOOD SPECIMEN / Unknown 10/25/2015 9:19 AM CDT 10/25/2015 10:05 AM CDT Narrative [facility] ([facility]) - 10/28/2015 3:15 PM CDT 1 mL serum, red-top tube or gel barrier tube, Allow specimen to clot at room temperature for 15 to 30 minutes. Remove serum after centrifugation, and place in plastic transport tube. Transport frozen Performed at: ??01 - [address] ??[id number] Solar System Installer: Edison Chavez PhD, Phone: ??[phone] Castillo Velásquez MD LAB - CHEMISTRY CHRISTOPHER DE LA GARZA Performing Organization Address City/[facility]/ZIP Co de Phone Number [facility]) * IGM BLOOD (10/25/2015 9:19 AM CDT) Only the most recent of2 resultswithin the time period is included. Pathologist [facility] IgM 210 22 - 293 mg/dL [facility] Blood specimen (specimen) BLOOD SPECIMEN / Unknown 10/25/2015 9:19 AM CDT 10/25/2015 10:05 AM CDT Castillo Velásquez MD LAB - CHEMISTRY [place]RI[place]HER [place] [address], [facility] [phone] * IGG BLOOD (10/25/2015 9:19 AM CDT) Only the most recent of4 resultswithin the time period is included. IgG 794 540 - 1,822 mg/dL [facility] Blood specimen (specimen) BLOOD SPECIMEN / Unknown 10/25/2015 9:19 AM CDT 10/25/2015 10:05 AM CDT Narrative [facility] - 10/25/2015 10:40 AM CDT 1 mL serum, Red- top tube or gel barrier tube Castillo Velásquez MD LAB - CHEMISTRY CHRISTOPHER DE LA GARZA Performing Organization Address [facility]/ZIP [place] [address], [facility] [phone] * IGA BLOOD (10/25/2015 9:19 AM CDT) Only the most recent of2 resultswithin the time period is included. IgA 204 87 - 534 mg/dL [facility] Blood specimen (specimen) BLOOD SPECIMEN / Unknown 10/25/2015 9:19 AM CDT 10/25/2015 10:05 AM CDT Narrative [facility] - 10/25/2015 10:40 AM CDT 1 mL serum, Red-top tube or gel barrier tube, Room temperture Castillo Velásquez MD LAB - CHEMISTRY CHRISTOPHER [place] [address], [facility] [phone] * XR THORACOLUMBAR SPINE 2VW (07/31/2015 10:50 AM LIGHTER CAPTAIN) Anatomical Region Laterality Modality Spine Other Impressions 07/31/2015 4:45 PM LIGHTER CAPTAIN Impression: Unchanged postoperative appearance of instrumented posterior [...] 4:45 PM . Narrative 07/31/2015 4:45 PM LIGHTER CAPTAIN Exam: XR SPINE THORACOLUMBAR 2 VWS, XR [...] (corrected for NRBC) 11.1 10? 3 /uL [facility] Total Cell Count 100 [facility] Neutrophils Absolute Manual 7.77(H) 1.60 - 7.00 10? 3 /uL [facility] Comment:(BANDS+SEGS) x WBC = NEUT # (ANC) Lymphocyte Absolute Manual 1.55 0.80 - 2.90 10? 3 /uL [facility] Monocytes Absolute Manual 1.44(H) 0.14 - 0.66 10? 3 /uL [facility] Eosinophils Absolute Manual 0.33(H) 0.00 - 0.22 10? 3 /uL [facility] Band % Manual 3 0 - 10 % [facility] Neutrophil % Manual 67(H) 30 - 60 % [facility] Lymphocyte % Manual 14(L) 20 - 45 % [facility] Monocytes % Manual 13(H) 2 - 10 % [facility] Eosinophils % Manual 3 1 - 6 % [facility] Platelet Estimate Adequate Adequate [facility] Anisocytosis 1+(A) None [facility] Polychromasia 1+(A) None [facility] Blood specimen (specimen) BLOOD SPECIMEN / Unknown 03/27/2015 3:25 AM CDT 03/27/2015 3:55 AM CDT Reji Virk MD LAB - HEMATOLOGY ORD ERABLES [facility] [address] [phone] * FL YUSRA SURGERY (03/25/2015 2:44 PM CDT) Only the most recent of3 resultswithin the time period is included. Anatomical Region Laterality Modality Other 03/25/2015 2:44 PM CDT Narrative 03/25/2015 2:44 PM CDT Reason for Exam->surgery Fluoroscopy was used for this exam. Please see the Operative report. Reji Virk MD FLUOROSCOPY ORDERABL ES * (ABNORMAL) BLOOD GASES ART COMPLETE [facility] (03/25/2015 2:20 PM CDT) Only the most recent of2 resultswithin the time period is included. pH Arterial 7.43 7.35 - 7.45 [facility] pCO2 Arterial 35 35 - 45 mmHg [facility] pO2 Arterial 170(H) 77 - 101 mmHg [facility] HCO3 Arterial 22.4 22.0 - 26.0 mmol/L [facility] TCO2 Arterial 23.4(L) 25.0 - 29.0 mmol/L [facility] Base Excess Arterial -1.4 -2.0 - 2.0 mmol/L [facility] Hemoglobin Arterial 11.5(L) 12.0 - 15.5 g/dL [facility] Oxyhemoglobin Arterial 98.3 95.0 - 100.0 % [facility] Carboxyhemoglobin 0.3 0.0 - 3.0 % [facility] Methemoglobin 0.3 0.0 - 2.0 % [facility] Ionized Calcium Whole Blood 1.13 mmol/L [facility] Adjusted Ionized Calcium 1.15(L) 1.19 - 1.34 mmol/L [facility] Sodium Whole Blood 133(L) 135 - 145 mmol/L [facility] Potassium Whole Blood 3.6 3.5 - 5.5 mmol/L [facility] Chloride Whole Blood 104 101 - 111 mmol/L [facility] Glucose Whole Blood 111(H) 70 - 110 mg/dL [facility] Lactic Acid Whole Blood 1.5 0.5 - 3.4 mmol/L [facility] Blood specimen (specimen) 03/25/2015 2:20 PM CDT 03/25/2015 2:22 PM CDT [facility] - 03/25/2015 2:27 PM CDT FIO2->60 Reji Virk MD LAB - BLOOD GASES OR DERABLES Performing Organization Address [facility]/ZIP Co de Phone Number [address] [phone] * CULTURE AEROBIC (03/25/2015 1:09 PM CDT) Culture Aerobic No Growth at 1 week [facility] Gram Stain No Organism Seen [facility] Bone tissue specimen (specimen) 03/25/2015 1:09 PM CDT 03/25/2015 5:18 PM CDT [facility] - 04/01/2015 12:39 PM CDT Posterior cervical spine Specimen Type->Bone Gram Stains are routinely screened for the presence of Polymorphonuclear Cells. Reji Virk MD LAB - MICROBIOLOGY O ROSSI Performing Organization Address [facility] Co de Phone Number [address] [phone] * CULTURE ANAEROBE (03/25/2015 1:09 PM CDT) Culture Anaerobic No Growth at 1 week [facility] Bone tissue specimen (specimen) 03/25/2015 1:09 PM CDT 03/25/2015 5:18 PM CDT [facility] - 04/01/2015 12:49 PM CDT Posterior cervical spine Specimen Type->Bone Reji Virk MD LAB - MICROBIOLOGY O ROSSI Performing Organization Address [facility] Co de Phone Number [address] [phone] * HCG BETA BLOOD QUANTITATIVE (03/25/2015 11:45 AM CDT) Beta-hCG Total Quantitative 2 <5 mIU/mL [facility] Comment: HCG Numeric Result Interpretation: ? Non- Females: ? < 5 mIU/mL ? Post-Menopausal Females: ??< 7 mIU/mL ? Blood specimen (specimen) BLOOD SPECIMEN / Unknown 03/25/2015 11:45 AM CDT 03/25/2015 11:50 AM CDT Reji Virk MD LAB - CHEMISTRY CHRISTOPHER DE LA GARZA [address] [phone] * COMPLETE PFT W/WO BRONCHODILATOR (03/11/2015 12:42 PM CDT) Impressions [facility] - 03/11/2015 12:42 PM CDT [facility] DEPARTMENT OF PULMONARY, CRITICAL CARE, AND SLEEP [...] of Pulmonary, Critical Care, & Sleep Medicine [facility] Pager 03/12/2015 10:40 AM I have personally reviewed pulmonary function test data and finding. I concur with fellow's note. Samuel Urbano MD Narrative Procedure Note Provider, MD Alexis - 01/07/2018 IMPRESSION [facility] DEPARTMENT OF PULMONARY, CRITICAL CARE, AND SLEEP [...] of Pulmonary, Critical Care, & Sleep Medicine [facility] Pager 03/12/2015 10:40 AM I have personally reviewed pulmonary function test data and finding. I concur with fellow's note. Samuel Urbano MD Lowell Pop MD RESPIRATORY THERAPY ORDERABLES [facility] * (ABNORMAL) BLOOD GASES ART - PFT (03/11/2015 9:21 AM CDT) pH Arterial 7.43 7.35 - 7.45 [facility] pCO2 Arterial 40 35 - 45 mmHg [facility] pO2 Arterial 76(L) 77 - 101 mmHg [facility] HCO3 Arterial 26.1(H) 22.0 - 26.0 mmol/L [facility] TCO2 Arterial 27.3 25.0 - 29.0 mmol/L [facility] Base Excess Arterial 2.2(H) -2.0 - 2.0 mmol/L [facility] Hemoglobin Arterial 12.6 12.0 - 15.5 g/dL [facility] Oxyhemoglobin Arterial 95.7 95.0 - 100.0 % [facility] Carboxyhemoglobin 1.3 0.0 - 3.0 % [facility] Methemoglobin 0.1 0.0 - 2.0 % [facility] FI O2 Arterial 21.0 % [facility] Blood specimen (specimen) ARTERY SPECIMEN / Unknown 03/11/2015 9:21 AM CDT 03/11/2015 9:48 AM CDT Narrative [facility] - 03/11/2015 10:56 AM CDT FiO2->21 Lowell Pop MD LAB - BLOOD GASES O RDERABLES Performing Organization Address City/[facility]/ZIP Co de Phone Number [address] [phone] * TYPE + SCREEN PANEL (02/19/2015 11:59 AM CDT) Only the most recent of11 resultswithin the time period is included. Typem O POS [facility] Antibody Screen NEG [facility] Blood specimen (specimen) 02/19/2015 11:59 AM CDT 02/19/2015 12:44 PM CDT Sander Robles DO LAB - BLOOD BANK OR DERABLES Performing Organization Address City/[facility]/ZIP Co de Phone Number [facility] [address] [place] [address] * FLOW CYTOMETRY RITUXAN BLOOD PANEL (11/29/2014 2:49 PM CDT) Only the most recent of4 resultswithin the time period is included. Rituxan Panel Flow Cytometry Specimen: Blood Reference:[id number] Reason for test: Rituxan Requested Markers: 7 [...] ?0-1 ? IgD ? 3-15 CD16 ?0-23 ?Hiram ? 3-12 CD19 ?8-24 ?Lambda ?3-7 CD20 ?7-17 ?HLA-DR ?9-25 CD23 ?2-16 ?TdT ? 0 Test performed at [facility], [address] [place] [address] ??[id number] This test was developed and its performance [...] perform high complexity clinical testing. By law [place], CD4 lymphocyte counts on patients with HIV infection must be reported by the physician to the [facility] Health authority. Interpretation: Marker ?Absolute count (cells/ul) CD3 ? 1614 CD4 (CD4+CD3+) ?771 CD8 (CD8+CD3+) ?723 CD20 ?265 CD19 ?265 CD45 ?2409 CD56 ?145 This case has been personally reviewed and interpreted by the attending (teaching) pathologist. Final Diagnosis performed by Meera Douglas MD. Electronically signed 12/01/2014 [facility] ([facility]) Blood specimen (specimen) 11/29/2014 2:49 PM CDT 11/29/2014 3:13 PM CDT Castillo Max MD LAB - PATHOLOGY/CY TOLOGY ORDERABLES [facility] ([facility]) * LAB MISC TEST (11/29/2014 2:30 PM CDT) Reference Lab Results SEE SCANNED REPORT [facility] RE[facility] NON INTERF Other (qualifier value) 11/29/2014 2:30 PM CDT 11/29/2014 3:53 PM CDT Castillo Max MD LAB SEND OUT Performing Organization Address City/[facility] Co de Phone Number [facility] NON INTERF * INFLUENZA A+B ANTIGEN RAPID (11/29/2014 2:30 PM CDT) Only the most recent of2 resultswithin the time period is included. Pathologist [facility] Influenza A Rapid Test Negative Negative [facility] Influenza B Rapid Test Negative Negative [facility] Nasopharyngeal SPECIMEN FROM NASOPHARYNGEAL STRUCTURE / Unknown 11/29/2014 2:30 PM CDT 11/29/2014 3:11 PM CDT Narrative [facility] - 11/29/2014 3:39 PM CDT Specimen Type->Nasopharyngeal If clinical conditions warrant, molecular testing for Influenza offers superior sensitivity (>98%) and is available by ordering INFLUENZA/RSV GILLIAN [[id number]]. ??To add to current sample within [address] an electronic or signed manual requisition order and call the [facility] Microbiology Lab at [phone] with your request. ?? The positive and negative predictive values of rapid influenza testing vary considerably depending upon the prevalence on influenza in the community. *False-positive results are more likely to occur when disease prevalence is low. *False-negative results are more likely to occur when disease prevalence is high. *Current local influenza prevalence can be obtained by calling the Director of Microbiology at [phone]. Castillo Max MD LAB - MICROBIOLOGY ORDERABLES Performing Organization Address [facility] Co de Phone Number [address] [phone] * CULTURE URINE (08/04/2014 1:01 AM LIGHTER CAPTAIN) Only the most recent of19 resultswithin the time period is included. Pathologist [facility] Culture Urine Less than 10,000 CFU/ML of Normal Fecal Heidi [facility] Comment: Urine specimen (specimen) URINE SPECIMEN OBTAINED BY CLEAN CATCH PROCEDURE / Unknown 08/04/2014 1:01 AM LIGHTER CAPTAIN 08/04/2014 1:10 AM LIGHTER CAPTAIN Narrative [facility] - 08/06/2014 12:17 PM LIGHTER CAPTAIN Specimen Type->Urine Andrea Briscoe MD LAB - MICROBIOLOGY O RDERABLES Performing Organization Address [facility] Co de Phone Number [address] [phone] * VIRAL RESPIRATORY PANEL BY RT-PCR (08/04/2014 12:35 AM LIGHTER CAPTAIN) Pathologist [facility] Influenza A Negative Negative [facility] (BEAKER) Influenza B Negative Negative [facility] (BEAKER) RSV A Negative Negative [facility]) RSV B Negative Negative [facility] ([facility]) Parainfluenza 1 Negative Negative [facility] (BEAKER) Parainfluenza 2 Negative Negative [facility] (BEAKER) Parainfluenza 3 Negative Negative [facility] (BEAKER) Rhinovirus Negative Negative [facility] (BEAKER) Metapneumovirus Negative Negative [facility] (BEAKER) Adenovirus Negative Negative [facility] (BEAKER) Other (qualifier value) 08/04/2014 12:35 AM LIGHTER CAPTAIN 08/04/2014 12:53 AM LIGHTER CAPTAIN Narrative [facility] (BE[facility]ER) - 08/07/2014 6:25 AM LIGHTER CAPTAIN Performed at: ??01 - [address] ??[id number] Solar System Installer: Kendrick Cardenas MD, Phone: ??[phone] Andrea Briscoe MD LAB - MICROBIOLOGY O ROSSI Performing Organization Address [facility]/ZIP Co de Phone Number [facility] ([facility]N) * CULTURE BLOOD (08/03/2014 8:08 PM LIGHTER CAPTAIN) Only the most recent of50 resultswithin the time period is included. Pathologist [facility] Culture Blood No Growth at 5 days [facility] Blood specimen (specimen) BLOOD SPECIMEN / Unknown 08/03/2014 8:08 PM LIGHTER CAPTAIN 08/03/2014 8:20 PM LIGHTER CAPTAIN Narrative [facility] - 08/08/2014 8:30 PM LIGHTER CAPTAIN Specimen Type->Blood Robin Kemp MD LAB - MICROBIOLOGY O ROSSI Performing Organization Address [facility]/ZIP Co de Phone Number [address] [phone] * B-TYPE NATRIURETIC PEPTIDE (08/03/2014 8:05 PM LIGHTER CAPTAIN) [facility] BNP 25 See Comment pg/mL [facility] Comment: A decision threshold of 100 [...] BLOOD SPECIMEN / Unknown 08/03/2014 8:05 PM LIGHTER CAPTAIN 08/03/2014 8:18 PM LIGHTER CAPTAIN Robin Kemp MD LAB - CHEMISTRY CHRISTOPHER DE LA GARZA [facility] Organization Address [facility]/State/[facility] [place] [address], [facility] [phone] * CT CHEST WO CONTRAST (08/03/2014 5:50 PM LIGHTER CAPTAIN) Anatomical Region Laterality Modality Chest Other Impressions 08/04/2014 1:16 PM LIGHTER CAPTAIN IMPRESSION: 1. No acute pulmonary process. 2. [...] on 08/03/2014. Dictated by Lilian North M.D. (limited radiology technician). I, Dr. PRESTON DELONG M.D. have personally reviewed and interpreted this examination/study. This report was electronically signed by PRESTON DELONG M.D. ??on 08/04/2014 1:16 PM . Narrative 08/04/2014 1:16 PM LIGHTER CAPTAIN EXAMINATION: Computed tomography (CT) of the chest [...] PM on08/03/2014. Dictated by Lilian North M.D. (limited radiology technician). I, Dr. PRESTON DELONG M.D. have personally reviewed and interpreted thisexamination/study. This report was electronically signed by PRESTON DELONG M.D. on 08/04/20141:16 PM . Robin Kemp MD CT ORDERABLES * (ABNORMAL) C-REACTIVE PROTEIN (06/15/2014 7:30 PM LIGHTER CAPTAIN) C-Reactive Protein 0.7(H) <=0.5 mg/dL [facility] Blood specimen (specimen) BLOOD SPECIMEN / Unknown 06/15/2014 7:30 PM LIGHTER CAPTAIN 06/15/2014 7:36 PM LIGHTER CAPTAIN Lori Foley MD LAB - CHEMISTRY ORDE RABYASH Performing Organization Address [facility] de Phone Number [address] [phone] * ERYTHROCYTE SEDIMENTATION RATE (06/15/2014 7:30 PM LIGHTER CAPTAIN) Only the most recent of2 resultswithin the time period is included. Erythrocyte Sedimentation Rate Westergren 16 0 - 20 MM/HR [facility] Blood specimen (specimen) BLOOD SPECIMEN / Unknown 06/15/2014 7:30 PM LIGHTER CAPTAIN 06/15/2014 7:37 PM LIGHTER CAPTAIN Lori Foley MD LAB - HEMATOLOGY ORD ERABLES Performing Organization Address [facility] Co de Phone Number [address] [phone] * MRI CERVICAL SPINE WWO CONT (06/12/2014 8:44 AM LIGHTER CAPTAIN) Only the most recent of3 resultswithin the time period is included. Anatomical Region Laterality Modality Spine Other Impressions 06/12/2014 11:56 AM LIGHTER CAPTAIN IMPRESSION: 1. Slightly increased size of the [...] 11:56 AM . Narrative 06/12/2014 11:56 AM LIGHTER CAPTAIN EXAMINATION: Magnetic resonance imaging (MRI) of the [...] with palpable nodule in the region of F5xgolellh status post chemotherapy which ended on 03/20/2013. [...] M.D. on 06/12/201411:32 AM. I, Dr. KEELY EMDINA M.D. have personally reviewed and interpreted thisexamination/study. This report was electronically signed by KEELY MEDINA M.D. on06/12/2014 11:56 AM . Castillo Max MD MR ORDERABLES * FLOW CYTOMETRY PANEL (02/22/2014 10:40 AM CDT) Only the most recent of2 resultswithin the time period is included. Flow Cytometry Results Specimen: ??FNA & core biopsy Reference: [id number] Reason for test: Hx. of Hodgkins Lymphoma [...] CD30 ? 0 ? HLA-DR ? 1 ?Hiram ? 0 ? Lambda ? 1 ? CD22 ? 0 ?TdT ? 5 Cell Region B: Milam Surface Marker ?Result (%) ? CD1a ? 84 ?CD2 ? 82 ?CD7 ? 83 ?CD3 ? 44 ?CD4 ? 74 ?CD5 ? 85 ?CD8 ? 69 ? CD10 ? 21 ? CD14 ? 1 ? CD19 ? 3 ? CD20 ? 3 ? CD23 ? 0 ? CD45 ? 86 ? CD15 ? 2 ? CD30 ? 2 ? HLA-DR ? 2 ?Hiram ? 2 ? Lambda ? 1 ? [...] ?0-1 ? IgD ? 3-15 CD16 ?0-23 ?Hiram ? 3-12 CD19 ?8-24 ?Lambda ?3-7 CD20 [...] CD16 ?0-34 ?IgD ? 0-20 CD19 ?0-48 ?Hiram ? 0-6 CD20 ?0-10 ?Lambda ?0-7 CD23 ?0-13 ?HLA-DR ?67-100 TdT ? 0 * The established laboratory minimum viability is 70%. Values below this minimum may result in the failure to find an abnormal population of cells. Test performed at [facility], [address] [facility] ??[id number] This test was developed and its performance [...] and thymoma; correlation with the biopsy specimen ([id number]), fine needle aspiration cytology ([id number]), and the clinical history is required for definitive diagnosis and classification. KM/MS/YC This case has been personally reviewed and interpreted by the attending (teaching) pathologist. Final Diagnosis performed by Meera Douglas MD. Electronically signed 02/23/2014 [facility] ([facility]) Other (qualifier value) 02/22/2014 10:40 AM CDT 02/22/2014 10:41 AM CDT Narrative [facility] ([facility]) - 02/23/2014 5:38 PM CDT Specimen is from IR ??Bone lesion Neoplastic:->Yes Reason for Exam->pt has hx hodgkins lymphoma ?has new bone lesion Castillo Max MD LAB - HEMATOLOGY O RDVICENTA Performing Organization Address [facility] Co de Phone Number [facility] ([facility]) * PATHOLOGY/GENETICS HISTORICAL-ONBASE (02/22/2014) Only the most recent of2 resultswithin the time period is included. 02/22/2014 [facility] - 03/08/2014 1:10 PM CDT Historical Provider LAB - CHEMISTRY O RDVICENTA Performing Organization Address [facility] Co de Phone Number [facility] [address] * CT GUIDED NEEDLE PLACEMENT (02/21/2014 [...] performed using 22-gauge Chiba needle. Aspirin the runner on the since lymphoid cells were present, the runner on requested to additional core samples to be sent on [facility]. Hence, 4 core samples were [...] lesion, 2 fine needle aspirations were performed [id number] Chiba needle. Aspirin the runner on the since lymphoid cellswere present, the runner on requested to additional core samples to besent [...] The flow cytometric analysis for this biopsy ([id number]) has a non-clonal T cell-predominant population compatible with normal thymus. There is no epithelial neoplasm. CUTTER APPRENTICE HAND/AF/edk The performance characteristics of all immunohistochemical and indirect immunofluorescence stains (if any) cited in this report were determined by the Histopathology Laboratory of [facility].?? Some of these tests were [...] by Kanika Steiner MD. Electronically signed 02/23/2014 [facility] ([facility]) Other (qualifier value) 02/21/2014 4:55 PM CDT 02/22/2014 7:39 AM CDT Narrative [facility] ([facility]) - 02/23/2014 7:36 PM CDT Collection Date->02/21/14 Collection Time-> 4:23 PM Specimen A->Mediastinum Castillo Max MD LAB - PATHOLOGY/CY TOLOGY ORDERABLES [facility] ([facility]) * CYTOLOGY NON-CALCULATOR OPERATOR PANEL (STL) (02/21/2014 4:21 PM CDT) Cytology Non-Perfume And Toilet Water Maker Reference: [id number] Specimen: MEDIASTINUM, MASS Clinical History: h/o lymphoma, [...] refer to the concurrent flow cytometric analysis ([id number]) and surgical biopsy specimen ([id number]). ES/OA COMMENT(S): PRELIMINARY DIAGNOSIS: Immediate interpretation by: Dr. Reymundo Allen PASS 1: ??Many lymphoid cells PASS 2: ??Many lymphoid cells This case has been personally reviewed and interpreted by the attending (teaching) pathologist. Initial Evaluation performed by Dax NIELSEN(ASCP). Electronically signed 02/23/2014 Final Diagnosis performed by Mannie Allen MD. Electronically signed 02/23/2014 [facility] ([facility]) Other (qualifier value) 02/21/2014 4:21 PM CDT 02/22/2014 1:11 PM CDT Narrative [facility] ([facility]) - 02/23/2014 2:39 PM CDT Diagnosis->mediastinal mass Collection Date->02/21/14 Collection Time-> 4:18 PM Specimen A->Mediastinum Castillo Max MD LAB - PATHOLOGY/CY TOLOGY ORDERABLES Performing Organization Address [facility] Co de Phone Number [facility] ([facility]) * LAB HISTORICAL RESULTS-ONBASE (04/19/2013) Only the most recent of11 resultswithin the time period is included. 04/19/2013 [facility] - 04/19/2013 2:09 PM CDT Historical Provider LAB - CHEMISTRY O RDERABLES Performing Organization Address [facility] Co de Phone Number [facility] [address] * (ABNORMAL) PLATELET COUNT AUTO (04/01/2013 12:25 PM CDT) Only the most recent of15 resultswithin the time period is included. Platelet 42(LL) 150 - 400 10^3/uL [facility] Comment:CHECKED NOT CALLED 8 N Venous blood specimen (specimen) 04/01/2013 12:25 PM CDT 04/01/2013 12:32 PM CDT [facility] - 04/01/2013 1:24 PM CDT Please draw post transfusion Castillo Max MD LAB - HEMATOLOGY O RDERABLES Performing Organization Address [facility] Co de Phone Number [facility] [address] [phone] * PREPARE PLATELET PHERESIS UNIT(S) (04/01/2013 9:45 AM CDT) Only the most recent of11 resultswithin the time period is included. Pathologist [facility] Blood Product [id number] ? A- ?SDP-HLA ? TRANSFUSED ? 04/01/13 1107 ?? [facility] 04/01/2013 9:45 AM CDT 04/01/2013 9:45 AM CDT Castillo Max MD LAB - BLOOD BANK O ROSSI Performing Organization Address City/[facility] Co de Phone Number [facility] [address] [place] [address], [facility] [phone] * CROSSMATCH RBC LEUKOREDUCED (03/30/2013 2:00 PM CDT) Only the most recent of15 resultswithin the time period is included. [facility] Blood Product [id number] ?O+ ?KUB-MIOL-KYH ? XM COMPATIBLE ? [id number] ?O+ ?YSE-MHGO-MFA ? TRANSFUSED ? 03/30/13 1712 ?? [facility] 03/30/2013 2:00 PM CDT 03/30/2013 2:44 PM CDT Castillo Max MD LAB - BLOOD BANK O ROSSI Performing Organization Address [facility] Co de Phone Number [address] [phone] * PHOSPHORUS BLOOD (03/27/2013 9:45 AM CDT) Only the most recent of80 resultswithin the time period is included. [facility] Phosphorus 4.4 2.3 - 4.7 mg/dL [facility] Serum 03/27/2013 9:45 AM CDT 03/27/2013 12:01 PM CDT Castillo Max MD LAB - CHEMISTRY OR DERABLES Performing Organization Address [facility] [place] [address], [facility] [phone] * URIC ACID BLOOD (03/22/2013 2:00 AM CDT) Only the most recent of7 resultswithin the time period is included. Uric Acid 6.2 2.6 - 7.2 mg/dL [facility] Serum BLOOD SPECIMEN / Unknown 03/22/2013 2:00 AM CDT 03/22/2013 2:22 AM CDT Castillo Max MD LAB - CHEMISTRY OR DERABLES [address] [phone] * VAS RIGHT VENOUS DUPLEX UE (03/21/2013 9:42 AM CDT) Only the most recent of3 resultswithin the time period is included. Anatomical Region Laterality Modality Other Castillo Max MD VASCULAR LAB ORDER GITA * IR TUNNEL PLEURAL CATH REMOVE (02/21/2013 3:22 PM CDT) Anatomical Region Laterality Modality Other Narrative 02/21/2013 4:51 PM CDT This is an interventional nephrology procedure performed on 02/21/2013 Coal Crusher Operator: Lauri Felipe Attending: Lauri Felipe Procedures performed: [...] case was 40 cm. Accordingly a 6 Singaporean triple-lumen power PICC line was trimmed to [...] an interventional nephrology procedure performed on 02/21/2013 Coal Crusher Operator: Lauri Felipe Attending: Lauri Felipe Procedures performed: [...] an interventional nephrology procedure performed on 02/21/2013 Coal Crusher Operator: Lauri Felipe Attending: Lauri Felipe Procedures performed: [...] case was 40 cm. Accordingly a 6 Singaporean triple-lumen power PICC line was trimmed to [...] an interventional nephrology procedure performed on 02/21/2013 Coal Crusher Operator: Lauri Felipe Attending: Lauri Felipe Procedures performed: [...] an interventional nephrology procedure performed on 02/21/2013 Coal Crusher Operator: Lauri Felipe Attending: Lauri Felipe Procedures performed: [...] case was 40 cm. Accordingly a 6 Singaporean triple-lumen power PICC line was trimmed to [...] an interventional nephrology procedure performed on 02/21/2013 Coal Crusher Operator: Lauri Felipe Attending: Lauri Felipe Procedures performed: [...] an interventional nephrology procedure performed on 02/21/2013 Coal Crusher Operator: Lauri Felipe Attending: Lauri Felipe Procedures performed: [...] case was 40 cm. Accordingly a 6 Singaporean triple-lumen power PICC line was trimmed to [...] an interventional nephrology procedure performed on 02/21/2013 Coal Crusher Operator: Lauri Felipe Attending: Lauri Felipe Procedures performed: [...] period is included. % PRA 44 () [facility] Class 1 LUM SAB Specificity () [facility] Comment: A:[id number] [id number] B:0703 0801 1302 1401-64 1402-65 1501/62 1502/75 1503/72 1512/76 1513/77 1516/63 1518/71 1801 2703 2705 2708 3501 3508 3701 3801 3901 4001/60 4101 4201 4501 4701 4801 5001 5101 5201 5301 5501 5601 5701 5801 7301 7801 8101 Class 1 LUM SAB Mod Risk - () [facility] Class 1 LUM SAB Reportable Comments () [facility] Comment: UNACCEPTABLE ANTIGENS FOR PLATELETS:A33, A66, B7, B8, B13, B14, B15, B17 (B57, B58), B18, B27, B35, B37, B38, B39, B40, B41, B42, B45, B47, B48, B50, B51, B52, B53, B55, B56, B57, B58, B73, B78, B81 Tested Date 3 () [facility] Comment: This test was developed and its performance characteristics determined by the [facility]. ??It has not been cleared [...] high complexity clinical laboratory testing. Performed at: ??[facility], [address] [place] [address] @ [place], [place] ??[id number] Solar System Installer: Daniel Gonzalez MD, 02/14/2013 11:4 5 PM CDT 02/14/2013 11:50 PM CDT Castillo Max MD LAB - BLOOD BANK [facility] Performing Organization Address City/State/[facility] Co de Phone Number [address] [phone] * CULTURE FUNGUS OTHER+FUNGUS SMEAR (02/12/2013 11:00 PM CDT) Culture Fungus-Other NO GROWTH FUNGI. [facility] Nasopharyngeal 02/12/2013 11 :00 PM CDT 02/12/2013 11:06 PM CDT Narrative [facility] - 03/14/2013 9:02 AM CDT SOURCE IS ORAL ULCERS PER EPIC ORDER ADDED CFUN PER PROTOCOL TWO SWABS RECEIVED Castillo Max MD LAB - MICROBIOLOGY ORDERABLES [facility] [address] [phone] * VIRAL CULTURE [facility] (02/12/2013 11:00 PM CDT) Viral Culture General No virus isolated. . [facility] Comment: Performed at: ?? - [address] ??[id number] Solar System Installer: Kendrick Cardenas MD, Phone: ??[phone] Preliminary Report: No virus isolated at 4 days. ??Next report to follow after 7 days. Performed at: ??[address] ??[id number] Solar System Installer: Kendrick Cardenas MD, Phone: ??[phone] Preliminary Report: No virus isolated at 24 hours. Next report to follow after 4 days. Performed at: ??[address] ??[id number] Solar System Installer: Kendrick Cardenas MD, Phone: ??[phone] ? !! ??EDITED OR ??CORRECTED RESULTS !! RESULT PREVIOUSLY REPORTED : ?? Preliminary Report: No virus isolated at 24 hours. Next report to follow after 4 days. Performed at: ??[address] ??[id number] Solar System Installer: Kendrick Cardenas MD, Phone: ??[phone] NOTIFIED [] AT 1128 ON 02/17/13 ? !! ??EDITED OR ??CORRECTED RESULTS !! RESULT PREVIOUSLY REPORTED : ?? Preliminary Report: No virus isolated at 4 days. ??Next report to follow after 7 days. Performed at: ??[address] ??[id number] Solar System Installer: Kendrick Cardenas MD, Phone: ??[phone] Preliminary Report: No virus isolated at 24 hours. Next report to follow after 4 days. Performed at: ??[address] ??[id number] Solar System Installer: Kendrick Cardenas MD, Phone: ??[phone] ? !! ??EDITED OR ??CORRECTED RESULTS !! RESULT PREVIOUSLY REPORTED : ?? Preliminary Report: No virus isolated at 24 hours. Next report to follow after 4 days. Performed at: ?? - [facility] ??[id number] Solar System Installer: Kendrick Cardenas MD, Phone: ??[phone] NOTIFIED [] AT 1128 ON 02/17/13 NOTIFIED [] AT 0941 ON 02/21/13 Nasopharyngeal (Oral Mucosa/Gingiva) 02/12/2013 11:00 PM CDT 02/12/2013 11:06 PM CDT Narrative [facility] - 02/21/2013 9:41 AM CDT Swab oral ulcers for viral culture please Specimen Type->Nasopharyngeal SPECIMEN SOURCE? NASOPHARYNGEAL Castillo Max MD LAB - MICROBIOLOGY ORDERABLES Performing Organization Address [facility] Co de Phone Number [address] [phone] * FUNGUS SMEAR (02/12/2013 11:00 PM CDT) Fungus Smear NO FUNGI SEEN. [facility] Nasopharyngeal (Unspecified) 02/12/2013 11:00 PM CDT 02/12/2013 11:06 PM CDT [facility] - 02/15/2013 9:15 AM CDT Swab oral ulcers for fungal smear please Specimen Type->Nasopharyngeal SOURCE IS ORAL ULCERS PER EPIC ORDER ADDED CFUN PER PROTOCOL TWO SWABS RECEIVED Castillo Max MD LAB - MICROBIOLOGY ORDERABLES Performing Organization Address [facility] Co de Phone Number [address] [phone] * FIBRIN MONOMER (02/11/2013 6:44 PM CDT) Fibrin Monomer NEGATIVE NEGATIVE [facility] Comment: ?DECR. ?? PROL. ??DECR. ? [...] DISEASE (SEE TABLE). ??FOR FURTHER CONSULTATION, CALL COUNTRY PRINTER (EXT. [phone]). 02/11/2013 6:44 PM CDT 02/11/2013 7:08 PM CDT [facility] - 02/11/2013 9:20 PM CDT IS PATIENT ON HEPARIN? (Y OR N) N Castillo Max MD LAB - COAGULATION ORDERABLES Performing Organization Address [facility] Co de Phone Number [address] [phone] * (ABNORMAL) FIBRINOGEN CLAUSS (02/11/2013 6:44 PM CDT) Fibrinogen Clauss 404(H) 170 - 400 mg/dL [facility] 02/11/2013 6:44 PM CDT 02/11/2013 7:08 PM CDT Narrative [facility] - 02/11/2013 7:36 PM CDT IS PATIENT ON HEPARIN? (Y OR N) N Castillo Max MD LAB - COAGULATION ORDERABLES Performing Organization Address [facility] Co de Phone Number [address] [phone] * BLOOD TYPE ABO+ RH PANEL (02/06/2013 11:50 AM CDT) Only the most recent of7 resultswithin the time period is included. Interpretation ABO/Rh Patient O POS [facility] 02/06/2013 11:5 0 AM CDT 02/06/2013 4:29 PM CDT Castillo Max MD LAB - BLOOD BANK O RDERABLES Performing Organization Address [facility] Co de Phone Number [address] [phone] * ANTIBODY SCREEN (02/06/2013 11:50 AM CDT) Only the most recent of5 resultswithin the time period is included. Antibody Screen NEGATIVE [facility] 02/06/2013 11:5 0 AM CDT 02/06/2013 4:29 PM CDT Castillo Max MD LAB - BLOOD BANK O RDERABLES [address] [phone] * ALT (02/02/2013 5:00 AM CDT) ALT 18 0 - 55 Units/L [facility] Serum 02/02/2013 5:00 AM CDT 02/02/2013 5:21 AM CDT Castillo Max MD LAB - CHEMISTRY OR DERABLES Performing Organization Address [facility]/ZIP Co de Phone Number [address] [phone] * AST BLOOD (02/02/2013 5:00 AM CDT) AST 10 5 - 34 Units/L [facility] Serum 02/02/2013 5:00 AM CDT 02/02/2013 5:21 AM CDT Castillo Max MD LAB - CHEMISTRY OR DERABLES Performing Organization Address [facility] Co de Phone Number [address] [phone] * BILIRUBIN TOTAL BLOOD (02/02/2013 5:00 AM CDT) Bilirubin Total 0.6 0.2 - 1.2 mg/dL [facility] Serum 02/02/2013 5:00 AM CDT 02/02/2013 5:21 AM CDT Castillo Max MD LAB - CHEMISTRY OR DERABLES Performing Organization Address City/[facility] Co de Phone Number [address] [phone] * XR THORACIC SPINE 1VW (01/31/2013 9:00 [...] Vancomycin Trough 8.5(L) 10.0 - 20.0 mcg/mL [facility] Comment: TROUGH CONCENTRATIONS IN THE HIGHER END OF THE RANGE (15-20 MCG/ML) ARE RECOMMENDED IN THE TREATMENT OF COMPLICATED INFECTIONS: I.E. ENDOCARDITIS, OSTEOMYELITIS, MENINGITIS, HOSPITAL-ACQUIRED PNEUMONIA. ?? AM [facility]. 2009. ??AUG 02;66(1):82-98. Venous blood specimen (specimen) 01/10/2013 8:30 AM CDT 01/10/2013 8:37 AM CDT Ashish Peralta MD LAB - CHEMISTRY [facility] Performing Organization Address City/[facility]/ZIP Co de Phone Number [address] [phone] * (ABNORMAL) CBC W/O DIFFERENTIAL (12/31/2012 2:30 PM CDT) Only the most recent of4 resultswithin the time period is included. WBC 0.4(LL) 3.5 - 10.5 10^3/uL [facility] Comment: RESULT CONFIRMED BY REPEAT ANALYSIS, CHECKED ?? NOT CALLED 8N RBC 3.02(L) 3.90 - 5.00 10^6/uL [facility] Hemoglobin 8.6(L) 12.0 - 15.5 g/dL [facility] Comment:RESULTS CONFIRMED BY REPEAT ANALYSIS. Hematocrit 24.5(L) 35.0 - 45.0 % [facility] MCV 81.1 81.0 - 97.0 FL [facility] MCH 28.5 28.0 - 34.0 PG [facility] MCHC 35.1 32.0 - 36.0 G/DL [facility] Platelet 8(LL) 150 - 400 10^3/uL [facility] Comment: RESULT CONFIRMED BY REPEAT ANALYSIS, CHECKED ?? NOT CALLED 8N Comment Platelet COMMENT [facility] Comment: WHEN REPORTED, PLT. COUNT HAS BEEN CONFIRMED BY SLIDE REVIEW. RDW 14.5 11.2 - 14.8 % [facility] RDW-SD 42.9 36 - 50 FL [facility] Venous blood specimen (specimen) 12/31/2012 2:30 PM CDT 12/31/2012 2:47 PM CDT Narrative [facility] - 12/31/2012 2:56 PM CDT RN will draw IS PATIENT ON HEPARIN? (Y OR N) N Dylan Dunham MD LAB - HEMATOLOGY MELISSA YADAV Performing Organization Address City/[facility]/ZIP Co de Phone Number [place] [id number], [place] [phone] * CLOSTRIDIUM DIFFICILE [facility] AG + TOXIN A+B (12/28/2012 9:00 PM CDT) Only the most recent of2 resultswithin the time period is included. [facility] C difficile Toxin Assay POSITIVE FOR [CLOSTRIDIUM DIFFICILE ANTIGEN] AND NEGATIVE FOR CLOSTRIDIUM DIFFICILE TOXIN. ASSAY INDETERMINATE. CONFIRMATORY MOLECULAR TESTING IN PROGRESS. ?REFERENCE RANGE = NEGATIVE. ? [facility] Culture Results [facility] Organism ID CLOSTRIDIUM DIFFICILE ANTIGEN [facility] Stool specimen (specimen) STOOL SPECIMEN / Unknown 12/28/2012 9:00 PM CDT 12/28/2012 10:18 PM CDT Narrative [facility] - 12/29/2012 1:50 PM CDT Specimen Type->Feces Dylan Dunham MD LAB - MICROBIOLOGY O ROSSI Performing Organization Address [facility] Co de Phone Number [address] [phone] * CLOSTRIDIUM DIFFICILE BY PCR (12/28/2012 9:00 PM CDT) [facility] C difficile GILLIAN NEGATIVE. CLOSTRIDIUM DIFFICILE TOXIN GENE IS NOT DETECTED BY NUCLEIC ACID AMPLIFICATION TESTING. ?REFERENCE RANGE = NEGATIVE. [facility] Stool specimen (specimen) 12/28/2012 9:00 PM CDT 12/28/2012 10:18 PM CDT Dylan Dunham MD LAB - MICROBIOLOGY O ROSSI Performing Organization Address [facility] Co de Phone Number [address] [phone] * (ABNORMAL) RETIC COUNT (12/27/2012 1:00 PM CDT) Only the most recent of2 resultswithin the time period is included. [facility] Reticulocyte % 0.1(L) 0.4 - 2.5 % [facility] Comment: * ??PLEASE NOTE NEW REFERENCE RANGE * Reticulocyte Absolute 0.00(L) 0.02 - 0.13 10^6/uL [facility] Comment: * ??PLEASE NOTE NEW REFERENCE RANGE * Venous blood specimen (specimen) 12/27/2012 1:00 PM CDT 12/27/2012 1:12 PM CDT Dylan Dunham MD LAB - HEMATOLOGY ORD ERABLES [address] [phone] * (ABNORMAL) HEPATIC FUNCTION PANEL (12/27/2012 1:00 PM CDT) Only the most recent of27 resultswithin the time period is included. Protein Total 4.9(L) 6.0 - 8.3 g/dL [facility] Albumin 2.7(L) 3.4 - 5.0 g/dL [facility] Bilirubin Total 0.4 0.2 - 1.2 mg/dL [facility] Alkaline Phosphatase 65 40 - 150 Units/L [facility] ALT 16 0 - 55 Units/L [facility] AST 14 5 - 34 Units/L [facility] Albumin/Globulin Ratio 1.2 1.1 - 2.3 [facility] Bilirubin Direct 0.1 0.0 - 0.5 mg/dL [facility] Bilirubin Indirect 0.3 mg/dL [facility] Comment: Unconjugated bilirubin is a calculated value, reference ranges have not been established Venous blood specimen (specimen) 12/27/2012 1:00 PM CDT 12/27/2012 1:12 PM CDT Dylan Dunham MD LAB - CHEMISTRY [facility] Performing Organization Address City/[facility]/ZIP Co de Phone Number [address] [phone] * HAPTOGLOBIN (12/27/2012 1:00 PM CDT) Haptoglobin 113 14 - 258 mg/dL [facility] Venous blood specimen (specimen) 12/27/2012 1:00 PM CDT 12/27/2012 1:12 PM CDT Dylan Dunham MD LAB - CHEMISTRY [facility] Performing Organization Address [facility] Co de Phone Number [address] [phone] * (ABNORMAL) CK + CKMB PANEL (12/25/2012 1:45 AM CDT) CK Total 16(L) 30 - 200 Units/L [facility] CK-MB 0.5 0.0 - 6.6 ng/mL [facility] Comment: ? CKMB Reference Range 6.6 [...] LAB - CHEMISTRY [facility] [address] [phone] * IR JORGE CATH INSERT (12/21/2012 10:22 AM CDT) Anatomical Region Laterality Modality Other Narrative 12/21/2012 4:23 PM CDT This is an Interventional Nephrology procedure performed on 12/21/2012 Coal Crusher Operator: Lauri Felipe Attending: ??Lauri Felipe Procedures performed: [...] ??This allowed the placement of a 5 Singaporean trocar which in turn allowed the placement [...] an Interventional Nephrology procedure performed on 12/21/2012 Coal Crusher Operator: Lauri Felipe Attending: Lauri Felipe Procedures performed: [...] This allowed the placement of a 5 Singaporean trocar which in turnallowed the placement of [...] Bilirubin Direct 0.2 0.0 - 0.5 mg/dL [facility] Bilirubin Indirect 0.3 mg/dL [facility] Comment: Unconjugated bilirubin is a calculated value, reference ranges have not been established 12/13/2012 3:45 AM CDT 12/13/2012 4:17 AM CDT John Massey MD LAB - CHEMISTRY [facility] Organization Address City/State/ZIP Co de Phone Number [address] [phone] * HLA TYPING DNA LOW RESOLUTION A,B,C (12/12/2012 12:30 PM CDT) ABC DNA A1 02 () [facility] ABC DNA A1 29 () [facility] ABC DNA B1 44 () [facility] ABC DNA B2 - () [facility] ABC DNA BW1 4 () [facility] ABC DNA BW2 - () [facility] ABC DNA C1 05 () [facility] ABC DNA C2 16 () [facility] ABC DNA Comments - () [facility] ABC DNA Methodology SSOP () [facility] ABC DNA Test Date 3 () [facility] Comment: This test was developed and its performance characteristics determined by the [facility]. ??It has not been cleared [...] high complexity clinical laboratory testing. Performed at: ??[facility], [address] [place] [address] ??[id number] Solar System Installer: Daniel Gonzalez MD, Line 12/12/2012 12:3 0 PM CDT 12/12/2012 12:37 PM CDT John Massey MD LAB - BLOOD BANK ORD ERABLES Performing Organization Address City/[facility]/ZIP Co de Phone Number [address] [phone] * (ABNORMAL) PLATELET ANTIBODY PANEL (12/12/2012 11:00 AM CDT) Pathologist [facility] HLA Class 1 Antibody Screen Positive(A) Negative [facility] IIb/IIIa Antibody Negative Negative [facility] Ib/IX Antibody Negative Negative [facility] Ia/IIa Antibody Negative Negative [facility] Comment: Performed at: ?? - [facility] ??[id number] Solar System Installer: Kendrick Cardenas MD, Phone: ??[phone] Blood specimen (specimen) (Line) 12/12/2012 11:00 AM CDT 12/14/2012 1:05 PM CDT John Massey MD LAB - CHEMISTRY ORDE RABLES Performing Organization Address [facility] Co de Phone Number [address] [phone] * UREA NITROGEN URINE RANDOM (12/04/2012 2:00 PM CDT) Pathologist [facility] Urea Nitrogen Random Urine 557 mg/dL [facility] Comment: REFERENCE RANGE: NONE ESTABLISHED FOR RANDOM URINE SPECIMENS. Urine specimen (specimen) 12/04/2012 2:00 PM CDT 12/04/2012 2:35 PM CDT John Massey MD LAB - URINE CHEMISTR Y ORDERABLES Performing Organization Address City/[facility]/ZIP Co de Phone Number [address] [phone] * POTASSIUM URINE RANDOM (12/04/2012 2:00 PM CDT) Potassium Urine 17 mmol/L [facility] Comment: REFERENCE RANGE: NONE ESTABLISHED FOR RANDOM URINE SPECIMENS. Urine specimen (specimen) 12/04/2012 2:00 PM CDT 12/04/2012 2:35 PM CDT John Massey MD LAB - URINE CHEMISTR Y ORDERABLES Performing Organization Address [facility] Co de Phone Number [address] [phone] * CALCIUM URINE RANDOM (12/04/2012 2:00 PM CDT) Calcium Random Urine 20.0 mg/dL [facility] Comment: REFERENCE RANGE: NONE ESTABLISHED FOR RANDOM URINE SPECIMENS. Urine specimen (specimen) 12/04/2012 2:00 PM CDT 12/04/2012 2:35 PM CDT John Massey MD LAB - URINE CHEMISTR Y ORDERABLES Performing Organization Address [facility] de Phone Number [address] [phone] * CREATININE URINE RANDOM (12/04/2012 2:00 PM CDT) Creatinine Random Urine 60 mg/dL [facility] Comment: REFERENCE RANGE: NONE ESTABLISHED FOR RANDOM URINE SPECIMENS. Urine specimen (specimen) 12/04/2012 2:00 PM CDT 12/04/2012 2:35 PM CDT John Massey MD LAB - URINE CHEMISTR Y ORDERABLES Performing Organization Address [facility] [place] Number [address] [phone] * CHLORIDE URINE RANDOM (12/04/2012 2:00 PM CDT) Chloride Random Urine 131 mmol/L [facility] Comment: REFERENCE RANGE: NONE ESTABLISHED FOR RANDOM URINE SPECIMENS. Urine specimen (specimen) 12/04/2012 2:00 PM CDT 12/04/2012 2:35 PM CDT John Massey MD LAB - URINE CHEMISTR Y ORDERABLES [facility] [address] [place] [address] * XR SCOLIOSIS 1VW (11/28/2012 5:13 PM CDT) Anatomical Region Laterality Modality Spine Other Impressions 11/30/2012 10:09 AM CDT Impression: 1. Status post C6-T12 posterior spinal fusion for T6 vertebral plana without evidence of hardware failure. No other compression deformities are identified. 2. No spinal scoliosis. Reported dictated by Austyn Arvizu MD (limited radiology technician). Dr. Hollis Muller M.D. have personally reviewed [...] status post C6-T12 posterior spinal fusion for V6inacgvaps plana. There is no evidence of hardware [...] scoliosis. Reported dictated by Austyn Arvizu MD (limited radiology technician). I, Dr. Hollis GALINDO M.D. have personally reviewed and interpreted thisexamination/study. This report was electronically signed by Hollis GALINDO M.D. on11/30/2012 10:09 AM . John Massey MD DIAGNOSTIC IMAGING O RDERABLES * (ABNORMAL) LUPUS ANTICOAGULANT PANEL (11/19/2012 5:45 AM CDT) APTT 44.7(H) 24.0 - 38.0 SECONDS [facility] PT 17.5(H) 12.1 - 14.8 SECONDS [facility] INR 1.4 [facility] [place] Buffer 69.1 SECONDS [facility] [place] Phospholipid 46.9 SECONDS [facility] [place] [employer] Seconds 22.2(H) <9.0 SECONDS [facility] Interpretation [place] POSITIVE( A) NEGATIVE [facility] Comment: [place] WHICH GENERALLY IS [...] - HEMATOLOGY ORD ERABLES Performing Organization Address City/[facility]/ZIP [place] [address], [facility] [phone] * FABIANA VIPER VENOM DILUTE (11/19/2012 5:45 AM CDT) [place]-DRVVT Screen 0.9 <1.2 [facility] Interpretation Dilute RVV NEGATIVE NEGATIVE [facility] 11/19/2012 5:45 AM CDT 11/19/2012 5:54 AM CDT John Massey MD LAB - COAGULATION OR DERABLES Performing Organization Address [facility] Co de Phone Number [address] [phone] * XR ABD OBSTRUCTION SERIES 2VW (11/18/2012 [...] obstruction series HISTORY: Abdominal distention, postoperative, excessive INFORMATION TECHNOLOGY OFFICER pump use COMPARISON: None available FINDINGS: There [...] obstruction series HISTORY: Abdominal distention, postoperative, excessive INFORMATION TECHNOLOGY OFFICER pump use COMPARISON: None available FINDINGS: There [...] Vitamin K 1.91 0.10 - 2.20 ng/mL [facility] BLOOD SPECIMEN / Unknown 11/18/2012 11/18/2012 1:39 AM CDT John Massey MD LAB - CHEMISTRY ORDE HOLLI [address] [phone] * (ABNORMAL) FACTOR X ASSAY (11/18/2012 12:00 AM CDT) Factor X Abn Pt Evaluation 67(L) 75 - 180 U/DL [facility] 11/18/2012 11/18/2012 1:3 9 AM CDT John Massey MD LAB - COAGULATION OR DERABLES [address] [phone] * FACTOR VII ASSAY (11/18/2012 12:00 AM CDT) Factor VII Activity 81 65 - 190 U/DL [facility] Plasma specimen (specimen) BLOOD SPECIMEN / Unknown 11/18/2012 11/18/2012 1:39 AM CDT John Massey MD LAB - COAGULATION OR DERABLES Performing Organization Address [facility] Co de Phone Number [address] [phone] * FACTOR II ASSAY (11/18/2012 12:00 AM CDT) Factor II Activity 78 75 - 155 U/DL [facility] Comment: FACTORII 1:20=84 ? 1:40=81 FACTOR VII 1:20=78 ? 1:40=77 FACTOR X 1:20=65 ? 1:40=66 FACTOR ??1:28=783 Plasma specimen (specimen) BLOOD SPECIMEN / Unknown 11/18/2012 11/18/2012 1:39 AM CDT John Massey MD LAB - COAGULATION OR DERABLES Performing Organization Address [facility] Co de Phone Number [address] [phone] * (ABNORMAL) FACTOR IX ASSAY (11/18/2012 12:00 AM CDT) Factor IX Activity 215(H) 60 - 150 U/DL [facility] Plasma specimen (specimen) BLOOD SPECIMEN / Unknown 11/18/2012 11/18/2012 1:39 AM CDT Narrative [facility] - 11/18/2012 9:48 AM CDT Is this a pre or post-infusion?->NA John Massey MD LAB - COAGULATION OR DERABLES Performing Organization Address [facility] de Phone Number [address] [phone] * (ABNORMAL) PT MIX 08/02 (11/16/2012 5:07 PM CDT) APTT 79.5(H) 24.0 - 38.0 SECONDS [facility] PT 31.6(H) 12.1 - 14.8 SECONDS [facility] INR 3.1 [facility] Dilute Prothrombin Time Index 0.73 <1.31 [facility] Interpretation dPT NEGATIVE NEGATIVE S [facility] Plasma specimen (specimen) 11/16/2012 5:07 PM CDT 11/16/2012 5:07 PM CDT John Massey MD LAB - COAGULATION OR DERABLES Performing Organization Address [facility] de Phone Number [address] [phone] * THROMBIN TIME (11/16/2012 5:07 PM CDT) Pathologist [facility] Thrombin Time 16.6 16.2 - 21.9 SECONDS [facility] 11/16/2012 5:07 PM CDT 11/16/2012 5:07 PM CDT John Massey MD LAB - COAGULATION OR DERABLES Performing Organization Address [facility] de Phone Number [address] [phone] * PREPARE FFP UNIT(S) (11/14/2012 10:45 PM CDT) Blood Product [id number] ?O+ ?FFP-T ? TRANSFUSED ? 11/14/12 2310 ?? [id number] ?O+ ?FFP-T ? TRANSFUSED ? 11/15/12 0111 ?? [facility] 11/14/2012 10:4 5 PM CDT 11/14/2012 10:45 PM CDT John Massey MD LAB - BLOOD BANK ORD ERABLES Performing Organization Address City/[facility]/ZIP Co de Phone Number [address] [phone] * (ABNORMAL) URINALYSIS DIPSTICK AUTO (11/14/2012 9:00 PM CDT) Color UA ORANGE(A) STRW,YELLOW [facility] Clarity UA HAZY(A) CLEAR [facility] Specific [place] Urine 1.015 1.001 - 1.030 [facility] pH UA 6.5 5.0 - 8.0 [facility] Protein UA 30(A) <20 mg/dL [facility] Glucose UA NEGATIVE NEGATIVE mg/dL [facility] Ketones NEGATIVE NEGATIVE mg/dL [facility] Bilirubin UA NEGATIVE NEGATIVE mg/dL [facility] Blood UA NEGATIVE NEGATIVE [facility] Nitrite UA NEGATIVE NEGATIVE [facility] Leukocyte Esterase NEGATIVE NEGATIVE [facility] Urobilinogen UA < 2.0 <2.0 mg/dL [facility] Urine specimen (specimen) URINE SPECIMEN COLLECTION, CATHETERIZED / Unknown 11/14/2012 9:00 PM CDT 11/15/2012 12:10 AM CDT Narrative [facility] - 11/15/2012 12:36 AM CDT Per ernesto protocol Reji Virk MD LAB - URINALYSIS ORD ERABLES Performing Organization Address [facility]/ZIP Co de Phone Number [address] [phone] * LACTIC ACID WHOLE BLOOD (11/14/2012 6:31 PM CDT) Only the most recent of2 resultswithin the time period is included. Lactic Acid-Stat 0.7 0.5 - 3.4 mmol/L [facility] 11/14/2012 6:31 PM CDT 11/14/2012 6:31 PM CDT Reji Virk MD LAB - CHEMISTRY CHRISTOPHER DE LA GARZA [address] [phone] * (ABNORMAL) CHLORIDE WHOLE BLOOD (11/14/2012 6:31 PM CDT) Only the most recent of2 resultswithin the time period is included. Whole Blood CL 112(H) 101 - 111 MMOL/L [facility] 11/14/2012 6:31 PM CDT 11/14/2012 6:31 PM CDT Reji Virk MD LAB - CHEMISTRY [facility]STOPHER DE [facility] Performing Organization Address [facility] Co de Phone Number [address] [phone] * (ABNORMAL) CALCIUM IONIZED WHOLE BLOOD (11/14/2012 6:31 PM CDT) Only the most recent of2 resultswithin the time period is included. Ionized Calcium Whole Blood 1.08 MMOL/L [facility] Whole Blood PH 7.29(L) 7.35 - 7.45 [facility] Adjusted Ionized Calcium 1.02(L) 1.19 - 1.34 mmol/L [facility] 11/14/2012 6:31 PM CDT 11/14/2012 6:31 PM CDT Reji Virk MD LAB - CHEMISTRY [facility]RISTOPHER DE LA [facility]AR[facility] Performing Organization Address City/[facility]/ZIP Co de Phone Number [address] [phone] * POTASSIUM WHOLE BLD (11/14/2012 6:31 PM CDT) Only the most recent of2 resultswithin the time period is included. Potassium 4.9 3.5 - 5.5 mmol/L [facility] 11/14/2012 6:31 PM CDT 11/14/2012 6:31 PM CDT Reji Virk MD LAB - CHEMISTRY [facility]RISTOPHER DE LA GARZA [address] [phone] * (ABNORMAL) SODIUM WHOLE BLOOD (11/14/2012 6:31 PM CDT) Only the most recent of2 resultswithin the time period is included. Sodium Whole Blood 129(L) 135 - 145 mmol/L [facility] 11/14/2012 6:31 PM CDT 11/14/2012 6:31 PM CDT Reji Virk MD LAB - CHEMISTRY [facility]RISTOPHER DE LA [facility]AR[facility] Performing Organization Address City/[facility]/ZIP Co de Phone Number [address] [phone] * (ABNORMAL) BLOOD GASES ART (11/14/2012 6:31 PM CDT) Only the most recent of2 resultswithin the time period is included. pH Arterial 7.29(L) 7.35 - 7.45 [facility] pCO2 Arterial 40 35 - 45 mmHg [facility] pO2 Arterial 186(H) 77 - 101 mmHg [facility] HCO3 Arterial 18.5(L) 22 - 26 mEq/L [facility] TCO2 Arterial 19.7(L) 25 - 29 mEq/L [facility] Base Excess Arterial -7.1(L) -2 - 2 [facility] Hemoglobin Arterial 10.4(L) 12.0 - 15.5 g/dL [facility] Oxyhemoglobin Arterial 95.1 95.0 - 100.0 % [facility] Carboxyhemoglobin 2.8 0 - 3 % [facility] Methemoglobin 1.6 0 - 2.0 % [facility] FI O2 Arterial 21 [facility] 11/14/2012 6:31 PM CDT 11/14/2012 6:31 PM CDT Reji Virk MD LAB - BLOOD GASES OR DERABLES Performing Organization Address [facility] Co de Phone Number [address] [phone] * (ABNORMAL) GLUCOSE WHOLE BLOOD (11/14/2012 6:31 PM CDT) Only the most recent of2 resultswithin the time period is included. Glucose 181(H) 70 - 110 mg/dL [facility] 11/14/2012 6:31 PM CDT 11/14/2012 6:31 PM CDT Reji Virk MD LAB - CHEMISTRY ORDE RABLES Performing Organization Address [facility] Co de Phone Number [address] [phone] * (ABNORMAL) FIBRINOGEN ACTIVITY (11/14/2012 6:30 PM CDT) Fibrinogen Clauss 407(H) 170 - 400 mg/dL [facility] 11/14/2012 6:30 PM CDT 11/14/2012 6:58 PM CDT Hemal Brand MD LAB - COAGULATION OR DERABLES Performing Organization Address [facility] Co de Phone Number [address] [phone] * CULTURE SPUTUM+GRAM STAIN (11/11/2012 6:00 AM CDT) Gram Stain MANY POLYMORPHONUCLEAR CELLS; RARE YEAST SEEN. GRAM STAINS ARE ROUTINELY SCREENED FOR THE PRESENCE OF POLYMORPHONUCLEAR CELLS. [facility] Culture Results [facility] Culture Sputum and Smear LIGHT GROWTH OF YEAST. [facility] Culture Results [facility] Sputum specimen (specimen) 11/11/2012 6:00 AM CDT 11/11/2012 6:15 AM CDT Narrative [facility] - 11/13/2012 1:11 PM CDT Specimen Type->Sputum John Massey MD LAB - MICROBIOLOGY O ROSSI Performing Organization Address [facility]/ZIP Co de Phone Number [address] [phone] * HCG BLOOD QUALITATIVE (11/10/2012 7:35 AM CDT) NEGATIVE NEGATIVE [facility] Comment:PERFORMED BY: MEERA SAL 11/10/2012 7:35 AM CDT 11/10/2012 7:38 AM CDT John Massey MD LAB - CHEMISTRY CHRISTOPHER DE LA GARZA Performing Organization Address [facility] Co de Phone Number [address] [phone] * CULTURE MRSA (11/07/2012 5:45 PM CDT) Only the most recent of2 resultswithin the time period is included. Culture MRSA Screen NO GROWTH OF METHICILLIN RESISTANT STAPHYLOCOCCUS AUREUS. [facility] Nasal TISSUE SPECIMEN FROM AXILLA / Unknown 11/07/2012 5:45 PM CDT 11/07/2012 6:18 PM CDT Narrative [facility] - 11/09/2012 12:25 PM CDT Specimen Type->Nasal Swab AXILLA John Massey MD LAB - MICROBIOLOGY O ROSSI Performing Organization Address [facility]/ZIP Co de Phone Number [address] [phone] * XR PANOREX (11/05/2012 3:36 PM CDT) [...] is included. Chromosome Bone Marrow RESULTS FINAL [facility] Comment: * ASSAY PERFORMED BY: [facility] * ? [id number] ? [place] [address] REFER TO PATHOLOGY/CYTOLOGY REPORT FOR ORIGINAL REPORT AND INTERPRETATION. 11/04/2012 4:55 PM CDT 11/04/2012 5:19 PM CDT John Massey MD LAB - PATHOLOGY/CYTO LOGY ORDERABLES [facility] [address] [place] [address], [facility] [phone] * CHROMOSOME ANALYSIS BLOOD PANEL (11/04/2012 4:55 PM CDT) Fluorescent In-Situ Hybridization RESULTS FINAL [facility] Comment: * ASSAY PERFORMED BY: [facility] * ? [address] [facility] ? [place] [address] REFER TO PATHOLOGY/CYTOLOGY REPORT FOR ORIGINAL REPORT AND INTERPRETATION. 11/04/2012 4:55 PM CDT 11/04/2012 5:19 PM CDT John Massey MD LAB - PATHOLOGY/CYTO LOGY ORDERABLES [facility] [address] [place] [address], [facility] [phone] * MRI LUMBAR SPINE WWO CONTRAST (11/04/2012 [...] * PFT-LAB (11/04/2012 11:29 AM CDT) Impressions [facility] - 11/04/2012 11:29 AM CDT [facility] DEPARTMENT OF PULMONARY, CRITICAL CARE AND SLEEP [...] with Dr. Canales's interpretation. Manjinder Costa M.D. Pmp of Internal Medicine Division of Pulmonary, Critical Care and Sleep Medicine [facility] Narrative Procedure Note Provider, MD Alexis - 01/07/2018 IMPRESSION [facility] DEPARTMENT OF PULMONARY, CRITICAL CARE AND SLEEP [...] with Dr. Canales's interpretation. Manjinder Costa M.D. Pmp of Internal Medicine Division of Pulmonary, Critical Care and Sleep Medicine [facility] John Massey MD RESPIRATORY THERAPY ORDERABLES Performing Organization Address [facility] de Phone Number [facility] * PROTEIN ELECTROPHORESIS URINE RANDOM (11/03/2012 6:50 PM CDT) Interpretation Urine PE SEE NOTE [facility] Comment: Urine protein electrophoresis shows a [...] ?Fiorella Roa, Ph.D. Protein Urine 15 mg/dL [facility] Urine PE Albumin 41.0 % [facility] Urine PE Globulin 59.0 % [facility] Urine specimen (specimen) URINE SPECIMEN COLLECTION, CATHETERIZED / Unknown 11/03/2012 6:50 PM CDT 11/03/2012 7:03 PM CDT John Massey MD LAB - URINE CHEMISTR Y ORDERABLES Performing Organization Address [facility] de Phone Number [address] [phone] * HCG URINE QUALITATIVE (11/03/2012 6:50 PM CDT) Test Urine NEGATIVE NEGATIVE [facility] Urine specimen (specimen) URINE SPECIMEN COLLECTION, CATHETERIZED / Unknown 11/03/2012 6:50 PM CDT 11/04/2012 8:51 AM CDT John Massey MD LAB - URINALYSIS ORD ERABLES Performing Organization Address [facility] de Phone Number [address] [phone] * HIV-1 HIV-2 ANTIGEN/ANTIBODY (11/03/2012 5:33 PM CDT) [facility] HIV Antigen/Antib neda 1 & 2 NONREACTIVE NONREACTIVE [facility] Comment:HIV-1 p24 AG and HIV -1/HIV-2 AB NOT DETECTED. Blood specimen (specimen) 11/03/2012 5:33 PM CDT 11/03/2012 5:52 PM CDT John Massey MD LAB - HEMATOLOGY MELISSA YADAV Performing Organization Address [facility] de Phone Number [address] [phone] * (ABNORMAL) CYTOMEGALOVIRUS ANTIBODY IGG BLOOD (11/03/2012 5:33 PM CDT) [facility] Cytomegalovirus Antibody IgG 1.6(H) 0.0 - 0.8 index [facility] Comment: ? Negative ?<0.9 ? Equivocal ?0.9 - 1.0 ? Positive ?>1.0 Performed at: ?? - [address] ??[id number] Solar System Installer: Chris Bauer PhD, Phone: ??[phone] Venous blood specimen (specimen) 11/03/2012 5:33 PM CDT 11/03/2012 8:50 PM CDT John Massey MD LAB - CHEMISTRY CHRISTOPHER DE LA GARZA Performing Organization Address [facility] de Phone Number [address] [phone] * HEPATITIS BE ANTIGEN (11/03/2012 5:33 PM CDT) Hepatitis Be Virus Antigen Negative Negative [facility] 11/03/2012 5:33 PM CDT 11/03/2012 5:52 PM CDT John Massey MD LAB - CHEMISTRY CHRISTOPHER DE LA GARZA [address] [phone] * HEPATITIS BE ANTIBODY (11/03/2012 5:33 PM CDT) Hepatitis Be Virus Antibody Negative Negative [facility] Comment: Performed at: ?? - [facility] [address] ??[id number] Solar System Installer: Chris Bauer PhD, Phone: ??[phone] 11/03/2012 5:33 PM CDT 11/03/2012 5:52 PM CDT John Massey MD LAB - CHEMISTRY CHRISTOPHER DE LA GARZA Performing Organization Address City/[facility]/ZIP Co de Phone Number [address] [phone] * HEPATITIS B SURFACE ANTIBODY (11/03/2012 5:33 PM CDT) [facility] Hepatitis B Surface Antibody Quantitative 0.16 <8.00 mIU/mL [facility] Hepatitis B Virus Surface Antibody NONREACTIVE NONREACTIVE [facility] Comment: < 8 mIU/mL anti-HBs. Nonreactive for anti-HBs and individual is considered not immune to HBV infection. Venous blood specimen (specimen) 11/03/2012 5:33 PM CDT 11/03/2012 5:52 PM CDT John Massey MD LAB - CHEMISTRY CHRISTOPHER DE LA GARZA [address] [phone] * HEPATITIS C ANTIBODY (11/03/2012 5:33 PM CDT) Hepatitis C Antibody NONREACTIVE NONREACTIVE [facility] Comment: Anti-HCV screen indicates no serologic [...] LAB - CHEMISTRY CHRISTOPHER DE LA GARZA [address] [phone] * HEPATITIS A IGM ANTIBODY (11/03/2012 5:33 PM CDT) [facility] Hepatitis A Virus Antibody IgM NONREACTIVE NONREACTIVE [facility] 11/03/2012 5:33 PM CDT 11/03/2012 5:52 PM CDT John Massey MD LAB - CHEMISTRY CHRISTOPHER DE LA GARZA Performing Organization Address [facility] Co de Phone Number [address] [phone] * HEPATITIS A ANTIBODY (11/03/2012 5:33 PM CDT) [facility] Hepatitis A Virus Total Antibody Negative Negative [facility] Comment: Performed at: ?? - [facility] ??[id number] Solar System Installer: Chris Bauer PhD, Phone: ??[phone] 11/03/2012 5:33 PM CDT 11/03/2012 5:52 PM CDT John Massey MD LAB - CHEMISTRY CHRISTOPHER DE LA GARZA [address] [phone] * HEPATITIS B CORE ANTIBODY IGM (11/03/2012 5:33 PM CDT) Hepatitis B Core Virus Antibody IgM NONREACTIVE NONREACTIVE [facility] 11/03/2012 5:33 PM CDT 11/03/2012 5:52 PM CDT John Massey MD LAB - CHEMISTRY CHRISTOPHER DE LA GARZA [facility] [address] [place] [address] Care Teams Building And Construction Manager Relationship Specialty Start Date End Date Blake Lindsey MD [address] [place] [address] PCP - General 05/20/16
--- OUTSIDE RECORDS SUMMARY | 2024-07-29 17:49 | XMS_ITS | Encounter Summary ---
Author Organization [facility] Address [address] [place] [address] Care Team Providers Care Back End Web Developer Name Role Phone Blake Lindsey MD Primary Care Provider [phone] Encounter Details Date Type Department Care Team (Latest Contact Info) Description 04/11/2024 4:35 PM CDT - 04/11/2024 11:59 PM CDT Hospital Encounter [facility] OP DRAW STATION [address] [place] [phone] Discharge Disposition: Home or Self Care Social [...] mg by mouth as directed 07/14/2022 NYSTOP [id number] UNIT/GM powder Apply 1 Dose to affected [...] PM CDT Abnormal CT of the chest MIKE/QA ENGINEER (SONU) ANTIBODY IGG Routine 04/11/2024 4:52 PM [...] HYPERSENSITIVE PANEL (04/11/2024 4:52 PM CDT) Pathologist [facility] [place] Allergen Feather Mix Negative Negative kU/L 04/17/2024 1:59 AM CDT [facility] ([facility]) Aspergillus fumigatus 1 None Detected None Detected 04/17/2024 1:59 AM CDT [facility] ([facility]) Aspergillus fumigatus 6 See Note None Detected 04/17/2024 1:59 AM CDT [facility] ([facility]) Comment: A. fumigatus #6 Ab, Precipitin testing not performed due to reagent backorder. A credit will be issued for this component. Aureobasidium Pullulans None Detected None Detected 04/17/2024 1:59 AM CDT [facility] ([facility]) Greenvale Serum None Detected None Detected 04/17/2024 1:59 AM CDT [facility] ([facility]) Micropolyspora faeni None Detected None Detected 04/17/2024 1:59 AM CDT [facility] ([facility]) Aspergillus flavus None Detected None Detected 04/17/2024 1:59 AM CDT [facility] ([facility]) Aspergillus fumigatus 2 None Detected None Detected 04/17/2024 1:59 AM CDT [facility] ([facility]) Aspergillus fumigatus 3 None Detected None Detected 04/17/2024 1:59 AM CDT [facility] ([facility]) Saccharomonospora viridis None Detected None Detected 04/17/2024 1:59 AM CDT [facility] ([facility]) Thermoactinomyces candidus None Detected None Detected 04/17/2024 1:59 AM CDT [facility] ([facility]) Comment: Testing includes antibodies directed at Aureobasidium pullulans, Aspergillus flavus, Aspergillus fumigatus #1, Aspergillus fumigatus #2, Aspergillus fumigatus #3, Aspergillus fumigatus #6, Micropolyspora faeni, Greenvale Serum, Saccharomonospora viridis, and Thermoactinomyces candidus. Allergen Phoma betae <0.10 <=0.34 kU/L 04/17/2024 1:59 AM CDT [facility] ([facility]) Allergen Beef <0.10 <=0.34 kU/L 04/17/2024 1:59 AM CDT [facility] ([facility]) Allergen Pork <0.10 <=0.34 kU/L 04/17/2024 1:59 AM CDT [facility] ([facility]) Immunocap Score See Note 1:59 AM CDT [facility] ([facility]) Comment: REFERENCE INTERVAL: Allergen, Interpretation [...] clinical allergy or even anaphylaxis. Performed By: [facility] [address] [place] [address] Armament Mechanic: Sivakumar Levi MD, PhD CLIA Number: [id number] Blood BLOOD SPECIMEN / Unknown Lab Venipuncture / Unknown 04/11/2024 4:52 PM CDT 04/11/2024 5:31 PM CDT Don Manuel MD LAB - CHEMISTRY CHRISTOPHER DE LA GARZA [facility] Organization Address City/State/ZIP Co de Phone Number [facility]) [address] [place] [address] * AURY BLOOD SCREEN W/REFLEX TITER (04/11/2024 4:52 PM CDT) AURY IgG None Detected None Detected 04/13/2024 3:43 PM CDT [facility] ([facility]) Comment: If suspicion of connective tissue disease is strong and AURY EIA is negative, consider testing for AURY by IFA ([id number]). INTERPRETIVE INFORMATION: Anti-Nuclear Antibodies (AURY), IgG by SINCERE Antinuclear Antibodies (AURY), IgG by SINCERE: AURY specimens are screened using enzyme-linked immunosorbent assay (SINCERE) methodology. All SINCERE results reported as Detected are further tested by indirect fluorescent assay (IFA) using HEp-2 substrate with an IgG-specific conjugate. The AURY SINCERE screen is designed to detect antibodies against dsDNA, histones, SS-A (Ro), SS-B (La), Mike, Mike/QA ENGINEER, Scl-70, Susanne-1, centromeric proteins, other antigens extracted from the HEp-2 cell nucleus. AURY SINCERE assays have been reported to have lower sensitivities than AURY IFA for systemic autoimmune rheumatic diseases (SARD). Negative results do not necessarily rule out SARD. Performed By: [facility] [address] [place] [address] [place] [address] Armament Mechanic: Sivakumar Levi MD, PhD CLIA Number: [id number] Blood BLOOD SPECIMEN / Unknown Lab Venipuncture / Unknown 04/11/2024 4:52 PM CDT 04/11/2024 5:32 PM CDT Don Manuel MD LAB - CHEMISTRY CHRISTOPHER DE LA GARZA [facility] Organization Address City/State/ZIP Co de Phone Number [facility] ([facility]) [address] [place] [address], [facility] * CBC W/ DIFFERENTIAL (04/11/2024 4:52 PM CDT) WBC 8.6 4.0 - 10.7 x10E9/L 04/11/2024 5:45 PM CDT [facility] RBC Count 4.62 3.90 - 5.20 x10E12/L 04/11/2024 5:45 PM T [facility] Hemoglobin 15.1 11.9 - 15.8 g/dL 04/11/2024 5:45 PM T [facility] Hematocrit 43.2 34.8 - 46.1 % 04/11/2024 5:45 PM T [facility] MCV 93.5 80.0 - 98.0 fL 04/11/2024 5:45 PM T [facility] MCH 32.7 26.7 - 33.6 pg 04/11/2024 5:45 PM T [facility] MCHC 35.0 31.7 - 36.3 g/dL 04/11/2024 5:45 PM T [facility] RDW-CV 12.9 11.3 - 14.8 % 04/11/2024 5:45 PM T [facility] Platelet Count 214 150 - 420 x10E9/L 04/11/2024 5:45 PM [facility] MPV 8.8 7.8 - 11.4 fL 04/11/2024 5:45 PM T [facility] Neutrophil % 58.4 41.0 - 74.0 % 04/11/2024 5:45 PM T [facility] Lymphocyte % 30.4 17.0 - 47.0 % 04/11/2024 5:45 PM CDT [facility] Monocyte % 6.3 3.0 - 11.0 % 04/11/2024 5:45 PM CDT [facility] Eosinophil % 4.1 0.0 - 7.0 % 04/11/2024 5:45 PM CDT [facility] Basophil % 0.6 0.0 - 1.6 % 04/11/2024 5:45 PM CDT [facility] Immature Granulocytes % 0.2 0.0 - 1.0 % 04/11/2024 5:45 PM CDT [facility] Neutrophil Absolute 5.00 1.60 - 7.50 x10E9/L 04/11/2024 5:45 PM T [facility] Lymphocyte Absolute 2.60 1.00 - 4.40 x10E9/L 04/11/2024 5:45 PM CDT [facility] Monocyte Absolute 0.54 0.15 - 1.00 x10E9/L 04/11/2024 5:45 PM CDT [facility] Eosinophil Absolute 0.35 0.00 - 0.60 x10E9/L 04/11/2024 5:45 PM CDT [facility] Basophil Absolute 0.05 0.00 - 0.13 x10E9/L 04/11/2024 5:45 PM T [facility] Blood BLOOD SPECIMEN / Unknown Lab Venipuncture / Unknown 04/11/2024 4:52 PM CDT 04/11/2024 5:28 PM CDT Don Manuel MD LAB - HEMATOLOGY ORD ERABLES [facility] [address] [place] [phone], [facility] [phone] * RHEUMATOID FACTOR BLOOD QUANTITATIVE (04/11/2024 4:52 PM CDT) Rheumatoid Factor <15 <30 IU/mL 04/11/2024 5:44 PM CDT [facility] Rheumatoid Factor Screen Negative Negative 04/11/2024 5:44 PM CDT [facility] Blood BLOOD SPECIMEN / Unknown Lab Venipuncture / Unknown 04/11/2024 4:52 PM CDT 04/11/2024 5:32 PM CDT Don Manuel MD LAB - CHEMISTRY CHRISTOPHER DE LA GARZA [facility] [address] [address], [facility] [phone] * CYCLIC CITRUL PEPTIDE ANTIBODY IGG/IGA (CCP) (04/11/2024 4:52 PM CDT) CCP Antibodies IgG/IgA 4 0 - 19 units 04/13/2024 3:10 PM CDT [facility] ([facility]) Comment: ?Negative ? <20 ?Weak positive ?20 - 39 ?Moderate positive ??40 - 59 ?Strong positive ?>59 Blood BLOOD SPECIMEN / Unknown Lab Venipuncture / Unknown 04/11/2024 4:52 PM CDT 04/11/2024 5:31 PM CDT Narrative [facility] ([facility]) - 04/13/2024 3:10 PM CDT Performed at: ??01 - [facility] [address] [place], [place] ??[id number] Brick Tester: Edison Chavez PhD, Phone: ??[phone] Don Manuel MD LAB - SEROLOGY ORDER GITA Performing Organization Address City/[facility]/ZIP Co de Phone Number [facility] ([facility]) [address] [place] [address] * MYOSITIS ANTIBODY PANEL COMPREHENSIVE (04/11/2024 4:52 PM CDT) SAE1 (SUMO activating enzyme) Ab Negative Negative 04/19/2024 4:47 PM CDT [facility] ([facility]) NXP2 (Nuclear matrix protein-2) Ab Negative Negative 04/19/2024 4:47 PM CDT [facility] ([facility]) MDA5 (CADM-140) Ab Negative Negative 2023 4:47 PM CDT [facility] ([facility]) TIF-1 gamma (155 kDa) Ab Negative Negative 04/19/2024 4:47 PM CDT [facility] ([facility]) Myositis Panel Interpretive Data See Note 04/19/2024 4:47 PM CDT [facility] ([facility]) Comment: INTERPRETIVE INFORMATION: Extended Myositis Panel [...] . . . . . . ??X Mike/QA ENGINEER (SONU) Ab, IgG ??. . . . [...] . . . . ??X Fibrillarin (U3 QA ENGINEER) Ab, IgG . . . . . [...] developed and its performance characteristics determined by [facility]. It has not been cleared or approved by the US Food and Drug Administration. This test was performed in a CLIA certified laboratory and is intended for clinical purposes. Mi-2 Antibody Negative Negative 04/19/2024 4:47 PM CDT [facility]) P155/140 Antibody Negative Negative 024 4:47 PM CDT [facility]) PL-12 Antibody Negative Negative 04/19/2024 4:47 PM CDT [facility]) PL-7 Antibody Negative Negative 04/19/2024 4:47 PM CDT [facility]) OJ Antibody Negative Negative 04/19/2024 4:47 PM CDT [facility]) EJ Antibody Negative Negative 04/19/2024 4:47 PM CDT [facility]) SRP Antibody Negative Negative 04/19/2024 4:47 PM CDT [facility]) Susanne-1 Antibody IgG 0 0 - 40 AU/mL 04/19/2024 4:47 PM CDT [facility] ([facility]) Comment: INTERPRETIVE INFORMATION: ??Susanne-1 Antibody, IgG ??29 AU/mL or less.........Negative ??30-40 AU/mL..............Equivocal ??41 AU/mL or greater......Positive Presence of Susanne-1 (antihistidyl transfer RNA [t-RNA' synthetase) antibody is associated with polymyositis and may also be seen in patients with dermatomyositis. Susanne-1 antibody is associated with pulmonary involvement (interstitial lung disease), Raynaud phenomenon, arthritis, and foundry equipment mechanic's hands (implicated in antisynthetase syndrome). KU Antibody Negative Negative 04/19/2024 4:47 PM CDT [facility] ([facility]) Mike/QA ENGINEER (SONU) Antibody IgG 3 0 - 19 Units 04/19/2024 4:47 PM CDT [facility] ([facility]) Comment: INTERPRETIVE INFORMATION: Mike/QA ENGINEER (SONU) Antibody, IgG ??19 Units or Less ............. Negative ??20 to 39 Units ............... Weak Positive ??40 to 80 Units ............... Moderate Positive ??81 Units or greater .......... Strong Positive Mike/QA ENGINEER antibodies are frequently seen in patients with mixed connective tissue disease (MCTD) and are also associated with other systemic autoimmune rheumatic diseases (SARDs) such as systemic lupus erythematosus (SLE), systemic sclerosis, and myositis. Antibodies targeting the Mike/QA ENGINEER antigenic complex also recognize Mike antigens, therefore, the Mike antibody response must be considered when interpreting these results. PM/Scl 100 Antibody IgG Negative Negative 04/19/2024 4:47 PM CDT [facility] ([facility]) Comment: INTERPRETIVE INFORMATION: PM/Scl-100 Antibody, [...] developed and its performance characteristics determined by [facility]. It has not been cleared or approved by the US Food and Drug Administration. This test was performed in a CLIA certified laboratory and is intended for clinical purposes. SS-A 52 Antibody 2 0 - 40 AU/mL 04/19/2024 4:47 PM CDT [facility] ([facility]) Comment: INTERPRETIVE INFORMATION: SSA-52 (Ro52) [...] - 40 AU/mL 04/19/2024 4:47 PM CDT [facility] ([facility]) Comment: REFERENCE INTERVAL: SSA-60 (Ro60) (SONU) Antibody, IgG ??29 AU/mL or Less ............. Negative ??30 - 40 AU/mL ................ Equivocal ??41 AU/mL or Greater .......... Positive Fibrillarin (U3 QA ENGINEER) Antibody IgG Negative Negative 04/19/2024 4:47 PM CDT [facility] ([facility]) Comment: Interpretive Information: Fibrillarin (U3 QA ENGINEER) Antibody, IgG The presence of fibrillarin (U3-QA ENGINEER) IgG antibodies in association with an AURY [...] a multi-ethnic cohort of SSc patients (n=98), U3-QA ENGINEER antibodies detected by immunoblot had an agreement of 98.9 percent with the gold standard immunoprecipitation (IP) assay. Approximately 71 percent (5/7) of the borderline U3-QA ENGINEER results with AURY nucleolar pattern in this cohort were IP negative. This test was developed and its performance characteristics determined by [facility]. It has not been cleared or approved by the US Food and Drug Administration. This test was performed in a CLIA certified laboratory and is intended for clinical purposes. Performed By: [facility] [address] [place] [address] Armament Mechanic: Sivakumar Levi MD, PhD CLIA Number: [id number] Blood BLOOD SPECIMEN / Unknown Lab Venipuncture / Unknown 04/11/2024 4:52 PM CDT 04/11/2024 5:31 PM CDT Don Manuel MD LAB - CHEMISTRY CHRISTOPHER DE LA GARZA [facility]) [address] [place] [address] * SS-B (SJOGREN'S) ANTIBODY (04/11/2024 4:52 PM CDT) SS-B Antibody 0 0 - 40 AU/mL 04/13/2024 9:51 PM CDT [facility]) Comment: INTERPRETIVE INFORMATION: SSB (La) (SONU) Ab, [...] (PSS) also have this antibody. Performed By: [facility] [address] [place] [address] Armament Mechanic: Sivakumar Levi MD, PhD CLIA Number: [id number] Blood BLOOD SPECIMEN / Unknown Lab Venipuncture / Unknown 04/11/2024 4:52 PM CDT 04/11/2024 5:31 PM CDT Don Manuel MD LAB - CHEMISTRY CHRISTOPHER DE LA GARZA [facility] Organization Address City/State/ZIP Co de Phone Number [facility]) [address] [place] [address] * SS-A (SJOGREN'S) 52+60 ANTIBODIES (04/11/2024 4:52 PM CDT) SS-A 52 Antibody 2 0 - 40 AU/mL 04/13/2024 10:[address] PM [address]T [facility] ([facility]) Comment: INTERPRETIVE INFORMATION: SSA-52 (Ro52) [...] - 40 AU/mL 04/13/2024 10:22 PM CDT [facility] ([facility]) Comment: REFERENCE INTERVAL: SSA-60 (Ro60) (SONU) Antibody, IgG ??29 AU/mL or Less ............. Negative ??30 - 40 AU/mL ................ Equivocal ??41 AU/mL or Greater .......... Positive Performed By: [facility] [address] [place] [address] Armament Mechanic: Sivakumar Levi MD, PhD IA Number: [id number] Blood BLOOD SPECIMEN / Unknown Lab Venipuncture / Unknown 04/11/2024 4:52 PM CDT 04/11/2024 5:31 PM CDT Don Manuel MD LAB - CHEMISTRY CHRISTOPHER DE LA GARZA [facility] ([facility]) [address] * SMOOTH MUSCLE ANTIBODY W REFLEX TITER (04/11/2024 4:52 PM CDT) F-Actin Antibody IgG 2 0 - 19 Units 04/13/2024 5:18 AM CDT [facility] ([facility]) Comment: If F-Actin (Smooth Muscle) Antibody, [...] suspicion for AIH is strong. Performed By: [facility] [address] [place] [address] Armament Mechanic: Sivakumar Levi MD, PhD CLIA Number: [id number] Blood BLOOD SPECIMEN / Unknown Lab Venipuncture / Unknown 04/11/2024 4:52 PM CDT 04/11/2024 5:39 PM CDT Don Manuel MD LAB - SEROLOGY ORDER GITA [facility]) [address] [place] [address], [facility] * MIKE/QA ENGINEER (SONU) ANTIBODY IGG (04/11/2024 4:52 PM CDT) Pathologist [facility] [place] Mike/QA ENGINEER (SONU) Antibody IgG 2 0 - 19 Units 04/13/2024 12:36 PM CDT [facility] ([facility]) Comment: INTERPRETIVE INFORMATION: Mike/QA ENGINEER (SONU) Antibody, IgG ??19 Units or Less ............. Negative ??20 to 39 Units ............... Weak Positive ??40 to 80 Units ............... Moderate Positive ??81 Units or greater .......... Strong Positive Mike/QA ENGINEER antibodies are frequently seen in patients with mixed connective tissue disease (MCTD) and are also associated with other systemic autoimmune rheumatic diseases (SARDs) such as systemic lupus erythematosus (SLE), systemic sclerosis, and myositis. Antibodies targeting the Mike/QA ENGINEER antigenic complex also recognize Mike antigens, therefore, the Mike antibody response must be considered when interpreting these results. Performed By: [facility] [address] [place] [address] Armament Mechanic: Sivakumar Levi MD, PhD CLIA Number: [id number] Blood BLOOD SPECIMEN / Unknown Lab Venipuncture / Unknown 04/11/2024 4:52 PM CDT 04/11/2024 5:09 PM CDT Don Manuel MD LAB - CHEMISTRY ORDReymundo DE LA GARZA Performing Organization Address City/[facility]/ZIP Co de Phone Number [facility] ([facility]) [address] * DNA ANTIBODY DS CRITHIDIA TITER (04/11/2024 4:52 PM CDT) dsDNA Antibody IgG <1:10 <1:10 2023 12:15 AM CDT [facility] ([facility]) Comment: INTERPRETIVE INFORMATION: Double-Stranded DNA (dsDNA) [...] recommendations for testing may be found at [email or web address]. Performed By: [facility] [address] [place] [address] Armament Mechanic: Sivakumar Levi MD, PhD CLIA Number: [id number] Blood BLOOD SPECIMEN / Unknown Lab Venipuncture / Unknown 04/11/2024 4:52 PM CDT 04/11/2024 5:30 PM CDT Don Manuel MD LAB - SEROLOGY ORDER GITA Performing Organization Address City/[facility]/ZIP Co de Phone Number [facility] ([facility]) [address] documented in this encounter Visit Diagnoses Diagnosis Abnormal CT of the chest- Primary Nonspecific (abnormal) findings on radiological and other examination of other intrathoracic organs Acute cough documented in this encounter Care Teams Back End Web Developer Relationship Specialty Start Date End Date Blake Lindsey MD [address] [place] [phone] PCP - General 05/20/16 documented as of this encounter
--- OUTSIDE RECORDS SUMMARY | 2024-07-29 17:49 | XMS_ITS | Encounter Summary ---
Author Organization [facility] Address [address] [facility] [place] [address] Care Team Providers Care Color Paste Mixing Supervisor Name Role Phone Blake Lindsey MD Primary Care Provider [phone] Encounter Details Date Type Department Care Team (Late st Contact Info) Description 07/08/2022 8:45 AM SIDE STITCHER Office Visit [facility] [place] [phone] Shant Solomon MD [address] [place] [id number] Parotid mass (Primary Dx); Nasal crusting; Nasal [...] Comments Blood Pressure 102/71 07/08/2022 8:52 AM SIDE STITCHER Pulse 87 07/08/2022 8:52 AM SIDE STITCHER Temperature - - Respiratory Rate 20 07/08/2022 8:52 AM SIDE STITCHER Oxygen Saturation - - Inhaled Oxygen Concentration - - Weight 88 kg (194 lb) 07/08/2022 8:52 AM SIDE STITCHER Height - - Body Mass Index 34.92 06/09/2022 2:15 PM SIDE STITCHER documented in this encounter Functional Status Functional [...] fluticasone propionate (FLONASE) 50 MCG/ACT nasal spray Anita 2 sprays into each nostril once daily [...] not taking: Reported on 08/26/2021) ??? NYSTOP 164466 UNIT/GM powder Apply 1 Dose to affected [...] Alejandra is unaccompanied. 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 Tobacco: Smoking: <10 pack-years (on and off [...] Mike MD Otolaryngology-Head and Neck Surgery 07/08/22 STITCHER Associated attestation - Shant Solomon MD - 07/08/2022 10:53 AM SIDE STITCHER Attending Physician Supervisory Note I personally interviewed [...] AM CSTAssociated Order(s): PROC SINUS ENDOSCOPY Procedure(s): TN ENDO NASAL SINUS BX POLYP DEBRID BRENDAN [...] in all critical portions of the procedure. STITCHER documented in this encounter Plan of Treatment Not on file documented as of this encounter Procedures Procedure Name Priority Date/Time Associated Diagnosis Comments TN ENDO NASAL SINUS BX POLYP DEBRID BRENDAN Routine 07/08/2022 9:40 AM SIDE STITCHER Nasal crusting Nasal congestion documented in this encounter Results * TN ENDO NASAL SINUS BX POLYP DEBRID BRENDAN (07/08/2022 9:40 AM SIDE STITCHER) Narrative Sharan Mike MD - 07/08/2022 9:40 AM SIDE STITCHER Sharan Mike MD ? 07/08/2022 10:11 AM [...] sinuses documented in this encounter Care Teams Color Paste Mixing Supervisor Relationship Specialty Start Date End Date Blake Lindsey MD [address] [place] [address] PCP - General 05/20/16 documented as of this encounter
--- OUTSIDE RECORDS SUMMARY | 2024-07-29 17:49 | XMS_ITS | Encounter Summary ---
Author Organization [facility] Health Address [address] [facility] [place] [address] Care Team Providers Care A Operator Name Role Phone Blake Lindsey MD Primary Care Provider Encounter Details Date Type Department Care Team (Late st Contact Info) Description 08/14/2021 Orders Only [facility] [address] [place], [place] [phone] Lowell Pop MD [address] DIV OF PULMONARY/[place] [address] Iron deficiency anemia, unspecified iron deficiency anemia [...] COVID-19? No / Unsure 08/13/2021 3:42 PM UNION CARPENTER documented as of this encounter Functional Status [...] Primary documented in this encounter Care Teams A Operator Relationship Specialty Start Date End Date Blake Lindsey MD [address] [place] [address] PCP - General 05/20/16 documented as of this encounter
--- OUTSIDE RECORDS SUMMARY | 2024-07-29 17:49 | XMS_ITS | Encounter Summary ---
Author Organization [facility] Health Address [address] [address] Care Team Providers Care Business Relationship Manager Name Role Phone Blake Lindsey MD Primary Care Provider [phone] Encounter Details Date Type Department Care Team (Latest Contact Info) Description 06/09/2022 3:40 PM WHEEL SETTER - 06/09/2022 11:59 PM [facility] Hospital Encounter [facility] DRAWSTATION [address] [facility], [address]nd [place] [address] Discharge Disposition: Home or Self Care Social [...] bilateral nares 22 g 1 03/17/2021 NYSTOP [id number] UNIT/GM powder Apply 1 Dose to affected [...] fluticasone propionate (FLONASE) 50 MCG/ACT nasal spray [place] 2 sprays into each nostril once daily [...] W AUTO DIFFERENTIAL STAT 06/09/2022 3:46 PM WHEEL SETTER Hodgkin lymphoma, unspecified Hodgkin lymphoma type, unspecified body region (HCC) COMPREHENSIVE METABOLIC PANEL STAT 06/09/2022 3:46 PM WHEEL SETTER Hodgkin lymphoma, unspecified Hodgkin lymphoma type, unspecified body region (HCC) documented in this encounter Results * (ABNORMAL) COMPREHENSIVE METABOLIC PANEL (06/09/2022 3:46 PM WHEEL SETTER) BUN 12 7 - 26 mg/dL 06/09/2022 4:29 PM [facility] Creatinine 0.66 0.56 - 0.96 mg/dL 06/09/2022 4:29 PM [facility] Sodium 140 136 - 145 mmol/L 06/09/2022 4:29 PM [facility] Potassium 3.7 3.5 - 4.5 mmol/L 06/09/2022 4:29 PM [facility] Chloride 111(H) 98 - 107 mmol/L 06/09/2022 4:29 PM [facility] CO2 21(L) 22 - 29 mmol/L 06/09/2022 4:29 PM [facility] Glucose 115 70 - 115 mg/dL 06/09/2022 4:29 PM [facility] Calcium 9.9 8.4 - 10.2 mg/dL 06/09/2022 4:29 PM [facility] Protein Total 7.7 6.0 - 8.3 g/dL 06/09/2022 4:29 PM [facility] Albumin 4.0 3.4 - 5.0 g/dL 06/09/2022 4:29 PM [facility] Bilirubin Total 0.7 0.2 - 1.2 mg/dL [...] Lab Venipuncture / Unknown 06/09/2022 3:46 PM WHEEL SETTER 06/09/2022 4:02 PM WHEEL SETTER Ashish Peralta MD LAB - CHEMISTRY ORDE [facility] Organization Address City/State/ZIP Co de Phone Number [facility] [address] [place] [phone], [facility] [phone] * (ABNORMAL) CBC WITH DIFFERENTIAL (06/09/2022 3:46 PM WHEEL SETTER) WBC 9.8 3.5 - 10.5 10? 3 /uL 06/09/2022 4:08 PM [facility] RBC 4.93 3.80 - 5.20 10? 6 /uL 06/09/2022 4:08 PM [facility] Hemoglobin 15.6 12.0 - 15.6 g/dL 06/09/2022 4:08 PM [facility] Hematocrit 45.9(H) 35.0 - 45.0 % 06/09/2022 4:08 PM [facility] MCV 93.1 80.7 - 98.3 fL 06/09/2022 4:08 PM [facility] MCH 31.6 26.7 - 34.0 pg 06/09/2022 4:08 PM [facility] MCHC 34.0 30.8 - 35.9 g/dL 06/09/2022 4:08 PM [facility] RDW-SD 42.9 36.0 - 50.0 fL 06/09/2022 4:08 PM [facility] RDW-CV 12.5 11.2 - 14.8 % 06/09/2022 4:08 PM [facility] Platelet Count 225 150 - 400 10? 3 /uL 06/09/2022 4:08 PM [facility] MPV 8.6(L) 9.4 - 12.9 fL 06/09/2022 4:08 PM [facility] nRBC Absolute 0.00 0 10? 3 /uL 06/09/2022 4:08 PM [facility] nRBC Auto 0.0 0 /100 WBC 06/09/2022 4:08 PM [facility] Neutrophils % 65.2 35.0 - 70.0 % 06/09/2022 4:08 PM [facility] Lymphocytes % 23.4 20.0 - 43.0 % 06/09/2022 4:08 PM [facility] Monocytes % 7.2 5.0 - 13.0 % 06/09/2022 4:08 PM [facility] Eosinophils % 3.2 0.0 - 6.0 % 06/09/2022 4:08 PM [facility] Basophil % 0.6 0.0 - 2.0 % 06/09/2022 4:08 PM [facility] Neutrophils Absolute 6.37 1.60 - 7.00 10? 3 /uL 06/09/2022 4:08 PM [facility] Lymphocyte Absolute 2.29 1.10 - 3.90 10? 3 /uL 06/09/2022 4:08 PM [facility] Monocytes Absolute 0.70 0.26 - 1.07 10? 3 /uL 06/09/2022 4:08 PM [facility] Eosinophils Absolute 0.31 0.00 - 0.47 10? 3 /uL 06/09/2022 4:08 PM [facility] Basophils Absolute 0.06 0.00 - 0.08 10? 3 /uL 06/09/2022 4:08 PM WHEEL SETTER [facility] Immature Granulocytes % 0.4 0.0 - 1.0 % 06/09/2022 4:08 PM WHEEL SETTER [facility] Immature Granulocytes Absolute 0.04 06/09/2022 4:08 PM WHEEL SETTER [facility] Blood BLOOD SPECIMEN / Unknown Lab Venipuncture / Unknown 06/09/2022 3:46 PM WHEEL SETTER 06/09/2022 4:02 PM WHEEL SETTER Ashish Peralta MD LAB - HEMATOLOGY ORD ERABLES [facility] [address] [place] [address] [phone] documented in this encounter Visit Diagnoses Diagnosis Hodgkin lymphoma, unspecified Hodgkin lymphoma type, unspecified body region (HCC) documented in this encounter Care Teams Business Relationship Manager Relationship Specialty Start Date End Date Blake Lindsey MD [address] [place] [address] PCP - General 05/20/16 documented as of this encounter
--- OUTSIDE RECORDS SUMMARY | 2024-07-29 17:49 | XMS_ITS | Encounter Summary ---
Author Organization [facility] Health Address [address] [facility] [place] [address] Care Team Providers Care Concrete Pointer Name Role Phone Blake Lindsey MD Primary Care Provider [phone] Encounter Details Date Type Department Care Team [...] on filedocumented in this encounter Care Teams Concrete Pointer Relationship Specialty Start Date End Date Blake Lindsey MD [address] [place] [address] PCP - General 05/20/16 documented as of this encounter
--- OUTSIDE RECORDS SUMMARY | 2024-07-29 17:49 | XMS_ITS | Encounter Summary ---
Author Organization [facility] Health Address [address] [facility] [place] [address] Care Team Providers Care Morgue Keeper Name Role Phone Blake Lindsey MD Primary Care Provider [phone] Reason for Visit * Reason Onset Date Comments Question 12/21/2023 Encounter Details Date Type Department Care Team (Late st Contact Info) Description 12/21/2023 Telephone [facility] - Hematology/Oncology [address] [place] [address] Radhika Cummings, RN Question Social [...] on filedocumented in this encounter Care Teams Morgue Keeper Relationship Specialty Start Date End Date Blake Lindsey MD [address] [place] [address] PCP - General 05/20/16 documented as of this encounter
--- OUTSIDE RECORDS SUMMARY | 2024-07-29 17:49 | XMS_ITS | Encounter Summary ---
Author Organization [facility] Health Address [address] [facility] [place] [address] Care Team Providers Care Electrical Electronics Engineer Name Role Phone Blake Lindsey MD Primary Care Provider [phone] Reason for Visit * Reason Comments Refill Request Encounter Details Date Type Department Care Team (Late st Contact Info) Description 04/02/2023 Refill [facility] - Sleep Services [facility] [place] [phone] Lowell Pop MD [address] OF PULMONARY/[place] [address] Refill Request Social History Tobacco Use Types [...] documented in this encounter Care Teams Electrical Electronics Engineer Relationship Specialty Start Date End Date Blake Lindsey MD [address] [place] [address] PCP - General 05/20/16 documented as of this encounter
--- OUTSIDE RECORDS SUMMARY | 2024-07-29 17:49 | XMS_ITS | Encounter Summary ---
Author Organization [facility] Health Address [address] [place] [address] Care Team Providers Care Medicaid Biller Name Role Phone Blake Lindsey MD Primary Care Provider [phone] Reason for Visit * Reason Onset Date Comments Appointment 04/12/2024 Encounter Details Date Type Department Care Team (Late st Contact Info) Description 04/12/2024 Telephone [facility] - Dermatology [address] [place] [address], [place] [phone] Jaun Mascorro MD [address] [place] [address] [address] [place] [address] Appointment Social History Tobacco Use Types Packs/Day [...] encounter Miscellaneous Notes * Telephone Encounter - Jd Trevizo - 04/19/2024 3:25 PM CDT Pt has been scheduled for 05/12/24 at 3:[address] Mascorro. Pt left detailed voicemail. Jd Trevizo * Telephone Encounter - Leana Phillips - 04/12/2024 3:55 PM CDT Current Provider: Allie Mascorro Reason for Call: Pt calling in concern of spot on left latter-day turning into basal cell, soonest apptI could find was in July. Patient Call Back Number: [phone] documented in this encounter Plan of Treatment Not on file documented as of this encounter Visit Diagnoses Not on filedocumented in this encounter Care Teams Medicaid Biller Relationship Specialty Start Date End Date Blake Lindsey MD [address] [place] [address] PCP - General 05/20/16 documented as of this encounter
--- OUTSIDE RECORDS SUMMARY | 2024-07-29 17:49 | XMS_ITS | Encounter Summary ---
Author Organization [facility] Health Address [address] [place] [address] Care Team Providers Care Mechanical Manufacturing Technician Name Role Phone Blake Lindsey MD Primary Care Provider [phone] Encounter Details Date Type Department Care Team (Late st Contact Info) Description 08/13/2021 2:37 PM LIBRARY SALES CONSULTANT - 08/13/2021 3:42 PM [facility] Hospital Encounter [facility] DI[facility]NOSTIC [facility] [address] [facility] [place] [address] Wai Lowry MD [address] [facility] [place] [address] Discharge Disposition: Home or Self Care Social [...] COVID-19? No / Unsure 08/13/2021 3:42 PM LIBRARY SALES CONSULTANT documented as of this encounter Functional Status [...] bilateral nares 22 g 1 03/17/2021 NYSTOP [id number] UNIT/GM powder Apply 1 Dose to affected [...] as directed 02/25/2021 QUEtiapine (SEROQUEL) 100 MG tabletIndications:Eed or Depressive Disorder Take 1 tablet by [...] fluticasone propionate (FLONASE) 50 MCG/ACT nasal spray [place] 2 sprays into each nostril once daily [...] 2VW OR MORE Routine 08/13/2021 2:48 PM LIBRARY SALES CONSULTANT Tear of right acetabular labrum, initial encounter documented in this encounter Results * XR HIP RIGHT 2VW OR MORE (08/13/2021 2:48 PM LIBRARY SALES CONSULTANT) Anatomical Region Laterality Modality Pelvis, Lower Extremity [facility] 08/13/2021 2:48 PM LIBRARY SALES CONSULTANT Impressions 08/13/2021 2:50 PM LIBRARY SALES CONSULTANT IMPRESSION: No acute findings. This report was electronically signed by CHARLIE GOODE ??on 08/13/2021 2:50 PM . Narrative 08/13/2021 2:50 PM LIBRARY SALES CONSULTANT EXAMINATION: XR PELVIS 1 OR 2VW, XR [...] encounter documented in this encounter Care Teams Mechanical Manufacturing Technician Relationship Specialty Start Date End Date Blake Lindsey MD [address] [place] [address] PCP - General 05/20/16 documented as of this encounter
--- OUTSIDE RECORDS SUMMARY | 2024-07-29 17:49 | XMS_ITS | Encounter Summary ---
Author Organization [facility] Health Address [address] [facility] [place] [address] Care Team Providers Care Carpenter Streetcar Name Role Phone Blake Lindsey MD Primary Care Provider [phone] Reason for Visit * Reason Onset Date Comments Appointment 01/26/2023 Encounter Details Date Type Department Care Team (Late st Contact Info) Description 01/26/2023 Telephone [facility] - Dermatology [address] [place] [address], [place] [phone] Jaun Mascorro MD [address] [place] [address] [address] [place] [address] Appointment Social History Tobacco Use Types Packs/Day [...] on filedocumented in this encounter Care Teams Carpenter Streetcar Relationship Specialty Start Date End Date Blake Lindsey MD [address] [place] [address] PCP - General 05/20/16 documented as of this encounter
--- OUTSIDE RECORDS SUMMARY | 2024-07-29 17:49 | XMS_ITS | Encounter Summary ---
Author Organization [facility] Health Address [address] [facility] [place] [address] Care Team Providers Care Pan Devulcanizer Name Role Phone Blake Lindsey MD Primary Care Provider [phone] Reason for Visit * Reason Comments Mass Encounter Details Date Type Department Care Team (Late st Contact Info) Description 12/22/2023 10:15 AM CDT Office Visit [facility] - ENT [address] [place] [phone] Shant Solomon MD [address] [place] [address] Parotid nodule (Primary Dx) Social History Tobacco [...] this encounter Patient Instructions * Patient Instructions* Taty Hua MA - 12/22/2023 10:32 AM CDT Thank you for visiting [facility] Otolaryngology - Head & [...] an appointment, please call our office at [phone] Wednesday through Wednesday from 8:00 am to4:30 pm. You can also request a routine appointment through your [email or web address] - [email or web address] account. Prescription Refills Contact your pharmacy to [...] the medical exchange at and ask the control tower operator to page the ENT physician person investigator. *Caller ID blocking service will need to be turned off for your call to be returned. We also specialize in Hearing Aids, Allergy testing, swallowing disorders, voice problems, cancer diagnosis, and so much more. Visit our website at [email or web address] for information about our practice and an [...] use of opioids 07/18/2021 Claustrophobia 07/15/2021 Convulsions ([facility]) 01/02/2013 COPD (chronic obstructive pulmonary disease) ([facility]) COVID-19 01/2021 hospitalized February 07-, on oxygen [...] History of penicillin allergy 08/31/2015 Hodgkin's disease ([facility]) 01/16/2013 Hodgkins lymphoma ([facility]) 2013 Inadequate sleep hygiene 07/18/2021 Infectious disease 08/30/2015 Leg cramps 07/18/2021 Mass of breast 12/13/2012 - Patient on exam has palpable LN in Left breast; has been evaluated by Dr Chavez. - Repeat U/S breast 11/10- not concerning for malignancy- no intervention needed, patient to undergo repeat mammogram in one year. Migraine Mild persistent asthma, uncomplicated ([facility]) 06/22/2017 Nausea 04/18/2017 Nausea with vomiting 12/29/2012 [...] 75 mg by mouth as directed NYSTOP [id number] UNIT/GM powder Apply 1 Dose to affected [...] Alejandra is unaccompanied. 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 Tobacco: Smoking: <10 pack-years (on and [...] glands documented in this encounter Care Teams Pan Devulcanizer Relationship Specialty Start Date End Date Blake Lindsey MD [address] [place] [address] PCP - General 05/20/16 documented as of this encounter
--- OUTSIDE RECORDS SUMMARY | 2024-07-29 17:49 | XMS_ITS | Encounter Summary ---
Author Organization [facility] Health Address [address] [place] [address] Care Team Providers Care Salt Operator Name Role Phone Blake Lindsey MD Primary Care Provider [phone] Reason for Visit * Reason Onset Date Comments Lower Extremity Problem Rt, F/U Pain Hip 08/05/2022 Encounter Details Date Type Department Care Team (Late st Contact Info) Description 08/05/2022 10:50 AM QUALITY CONTROL EXPERT Office Visit [facility] - Orthopedics [address] [place] [address], [place] [phone] Wai Lowry MD [address] [place] [address] [place] [address] Trochanteric bursitis of right hip [...] Wai Lowry MD - 08/05/2022 10:59 AM QUALITY CONTROL EXPERT Images from the original note were not [...] survey that will be sent to you.* [facility] Orthopaedic office contact information: [facility] [address] [facility], First Floor, [place] [address] [facility] Outpatient Operating Room: [facility] [place] [place] [address] [facility] [address] [place], [place] [address], [address], [place] [address] [facility] [address] [place]. [address] [facility] [address] [place] [address], [place] [place], [place] [address] Please do not hesitate to contact me with questions regarding her or any other patient in the future. Our clinical nurse, Heather Roper, can be reached at and at [email or web address]. Sincerely, Wai Lowry MD Team Physician for the [email or web address] ITY CONTROL EXPERT documented in this encounter Progress Notes * Wai Lowry MD - 08/05/2022 10:54 AM CST Images from the original note were not included. Wai Lowry MD [facility] Orthopaedic Sports Medicine Adult and [...] fluticasone propionate (FLONASE) 50 MCG/ACT nasal spray [place] 2 sprays into each nostril once daily [...] ??? Nurtec 75 MG tablet ??? NYSTOP [id number] UNIT/GM powder Apply 1 Dose to affected [...] today. Social History Occupational History ??? 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 Smoking status: Former Packs/day: [...] in the future. Our clinical nurse, Heather Ropre, can be reached at . Sincerely, Wai Lowry MD ITY CONTROL EXPERT * Lulu Camacho RN - 08/05/2022 10:33 AM CST HEre for right hip F/U- TS ITY CONTROL EXPERT documented in this encounter Procedure Notes * Wai Lowry MD - 08/05/2022 11:06 AM CSTAssociated Order(s): PROCDOC LARGE JOINT INJECTION Procedure(s): SD DRAIN/INJECT LARGE JOINT/BURSA Pre-Procedure Diagnose(s): Trochanteric bursitis of right hip INJECTION PROCEDURE NOTE: The injection site was marked. A timeout was performed. Under sterile conditions, without complications, tolerated well by the patient, 4 cc ropivacaine and 80 mg (2 cc) triamcinolone were injected into the right greater trochanteric bursa. ITY CONTROL EXPERT documented in this encounter Miscellaneous Notes * Addendum Note - Lulu Camacho RN - 08/06/2022 10:25 AM CSTAddended by: LULU CAMACHO on: 08/06/2022 10:25 AM Modules accepted: Orders ITY CONTROL EXPERT documented in this encounter Plan of Treatment Not on file documented as of this encounter Procedures Procedure Name Priority Date/Time Associated Diagnosis Comments SD DRAIN/INJECT LARGE JOINT/BURSA Routine 08/05/2022 11:06 AM QUALITY CONTROL EXPERT Trochanteric bursitis of right hip documented in this encounter Results * SD DRAIN/INJECT LARGE JOINT/BURSA (08/05/2022 11:06 AM QUALITY CONTROL EXPERT) Narrative Wai Lowry MD - 08/05/2022 11:06 AM QUALITY CONTROL EXPERT Wai Lowry MD ? 08/05/2022 ??2:01 PM [...] at 1130 $ Given 08/05/2022 11:17 AM QUALITY CONTROL EXPERT 4 mL Right Hip triamcinolone acetonide (Kenalog-40) injection 80 mg 80 mg, Intra-articular, ONCE, 1 dose, On Wed08/05/22 at 1130, Shake well before using. $ Given 08/05/2022 11:17 AM QUALITY CONTROL EXPERT 80 mg Righ t Hip documented in this encounter Care Teams Salt Operator Relationship Specialty Start Date End Date Blake Lindsey MD [address] [place] [address] PCP - General 05/20/16 documented as of this encounter
--- OUTSIDE RECORDS SUMMARY | 2024-07-29 17:49 | XMS_ITS | Encounter Summary ---
Author Organization [facility] Health Address [address] [place] [address] Care Team Providers Care Electrical Instrument Maker Name Role Phone Blake Lindsey MD Primary Care Provider [phone] Reason for Visit * Reason Onset Date Comments Results 10/05/2022 Encounter Details Date Type Department Care Team (Late st Contact Info) Description 10/05/2022 Telephone [facility] [address] [place] [address] Jaun Mascorro MD [facility] [place] [address] Results Social History Tobacco Use [...] Please call patient with results of biopsy. UCTION DISPATCHER documented in this encounter Plan of Treatment Not on file documented as of this encounter Visit Diagnoses Not on filedocumented in this encounter Care Teams Electrical Instrument Maker Relationship Specialty Start Date End Date Blake Lindsey MD [address] [place] [address] PCP - General 05/20/16 documented as of this encounter
--- OUTSIDE RECORDS SUMMARY | 2024-07-29 17:49 | XMS_ITS ---
Author Organization [facility] Address [address] [facility] [place] [address] Care Team Providers Care Hand Cultivator Name Role Phone Blake Lindsey MD Primary Care Provider [phone] Active Problems Problem Noted Date Diagnosed Date Inflamed seborrheic keratosis 03/02/2023 Actinic keratosis 03/02/2023 Neoplasm of uncertain behavior of skin 3 History of basal cell carcinoma (BCC) 10/03/2022 Multiple benign melanocytic nevi of upper and lower extremities and trunk 10/03/2022 Lentigines 10/03/2022 Seborrheic keratosis 10/03/2022 Chronic, continuous use of opioids 07/18/2021 Parotid nodule 08/22/2020 Assessment & Plan (08/22/2020 10:50 AM PORTABLE CANTEEN OPERATOR): Left sided parotid nodule - previously noted [...] 0 Assessment & Plan (07/11/2020 2:03 PM PORTABLE CANTEEN OPERATOR): Advised patient to use heat to the [...] 07/11/2020 Assessment & Plan (08/22/2020 10:46 AM PORTABLE CANTEEN OPERATOR): Continue with previous recommendations. Patient states she has been compliant. Follow up as needed Assessment & Plan (07/11/2020 1:57 PM PORTABLE CANTEEN OPERATOR): Patient states she has a history of [...] treatments are documented for this patient in [facility]. Treatments may have been administered in another system. Lifetime Dose Tracking * Chemical Lifetime Dose Automatic Entry Manual Entr y Dose Length Product 1,704 mGy-cm 1,704 mGy-cm 0 mGy-cm
--- OUTSIDE RECORDS SUMMARY | 2024-07-29 17:49 | XMS_ITS | Encounter Summary ---
Author Organization [facility] Health Address [address] [facility] [place] [address] Care Team Providers Care Mva Reactor Operator Head Name Role Phone Blake Lindsey MD Primary Care Provider [phone] Reason for Visit * Reason Onset Date Comments Question 12/21/2023 Encounter Details Date Type Department Care Team (Late st Contact Info) Description 12/21/2023 Telephone [facility] - ENT [address] [place] [phone] Shant Solomon MD [address] [place] [address] Question Social History Tobacco Use Types Packs/Day [...] on filedocumented in this encounter Care Teams Mva Reactor Operator Head Relationship Specialty Start Date End Date Blake Lindsey MD [address] [place] [address] PCP - General 05/20/16 documented as of this encounter
--- OUTSIDE RECORDS SUMMARY | 2024-07-29 17:49 | XMS_ITS | Encounter Summary ---
Author Organization [facility] Address [address] [place] [address] Care Team Providers Care Teacher Of The Hearing Impaired Name Role Phone Blake Lindsey MD Primary Care Provider [phone] Reason for Referral * Radiology Services (Routine) - Closed Specialty Diagnoses / Procedures Referred By Contac t Referred To Contact CT Scan Diagnoses Abnormal CT of the chest Procedures CT Chest Wo Lou And Don Rider MD [address] [place] [address] [address]L DIV OF PULMONARY/[place] [address] [facility] [address] [place] [address] Referral ID Status Reason Start Date Expiration Date Visits Re quested Visits Authorized [id number] Closed 04/11/2024 04/11/2025 1 1 Reason for Visit * Radiology Services (Routine) - Closed Specialty Diagnoses / Procedures Referred By Contac t Referred To Contact CT Scan Diagnoses Abnormal CT of the chest Procedures CT Chest Wo Lou And Don Rider MD [address] [facility] [address]L DIV OF PULMONARY/[place] [address] [facility] [address] [place] [address] Referral ID Status Reason Start Date Expiration Date Visits Re quested Visits Authorized [id number] Closed 04/11/2024 04/11/2025 1 1 Encounter Details Date Type Department Care Team (Latest Contact Info) Description 05/22/2024 9:55 AM CDT - 05/22/2024 11:59 PM CDT Hospital Encounter [facility] [address] [place] [address] Don Manuel MD [address] [facility] 2L DIV [place]ULMONARY[facility] [address] Discharge Disposition: Home or Self [...] mg by mouth as directed 07/14/2022 NYSTOP [id number] UNIT/GM powder Apply 1 Dose to affected [...] Dictated by Hanna Tyson MD, MD (resident assistant). I, Madhu Olivier MD have personally reviewed [...] Dictated by Hanna Tyson MD, MD (resident assistant). I, Madhu Olivier MD have personally reviewed and interpreted this examination/study. > Interpreting Provider: Madhu Olivier MD on 05/22/2024 7:[address] MD [address] ORDERABLES documented in this encounter Visit Diagnoses Diagnosis Abnormal CT of the chest Nonspecific (abnormal) findings on radiological and other examination of other intrathoracic organs documented in this encounter Care Teams Teacher Of The Hearing Impaired Relationship Specialty Start Date End Date Blake Lindsey MD [address] [place] [id number] PCP - General 05/20/16 documented as of this encounter
--- OUTSIDE RECORDS SUMMARY | 2024-07-29 17:49 | XMS_ITS | Encounter Summary ---
Author Organization [facility] Health Address [address] [place] [address] Care Team Providers Care Lead Esthetician Name Role Phone Blake Lindsey MD Primary Care Provider [phone] Reason for Referral * Radiology Services (Routine) - Closed Specialty Diagnoses / Procedures Referred By Contac t Referred To Contact CT Scan Diagnoses Abnormal CT of the chest Procedures CT Chest Wo Cont And Don Rider MD [address] [place] [address] 2L DIV OF PULMONARY/[place] [address] [facility] [address] [place] [address] Referral ID Status Reason Start Date Expiration Date Visits Re quested Visits Authorized [id number] Closed 04/11/2024 04/11/2025 1 1 * Procedure (Routine) - Closed Specialty Diagnoses / Procedures Referred By Contzohreh cano Referred To Contact Pulmonary Disease Diagnoses Abnormal CT of the chest Procedures SIX MINUTE WALK Don Manuel MD [address] [facility] 2L DIV OF PULMONARY/[place] [address] [facility] [address]ft [address] [place] [address] Referral ID Status Reason Start Date Expiration Date Visits Re quested Visits Authorized [id number] Closed 04/11/2024 04/11/2025 1 1 * Procedure (Routine) - Closed Specialty Diagnoses / Procedures Referred By Ariel cano Referred To Contact Pulmonary Disease Diagnoses Abnormal CT of the chest Procedures COMPLETE PFT W/WO BRONCHODILATOR Don aMnuel MD [address] [place] [address] OF PULMONARY/[place] [address] [facility] [address] [place] [address] Referral ID Status Reason Start Date Expiration Date Visits Re quested Visits Authorized [id number] Closed 04/11/2024 04/11/2025 1 1 Reason for Visit * Consult, Test & Treat (Routine) - Closed Specialty Diagnoses / Procedures Referred By Ariel cano Referred To Contact Internal Medicine / Pulmonary Disease Diagnoses SOB (shortness of breath) Wheezing Blake Lindsey MD [address] [place] [address] Chapito Ortega MD [address] [place] [address] Referral ID Status Reason Start Date Expiration Date Visits Re quested Visits Authorized [id number] Closed 04/11/2024 04/11/2025 1 1 Encounter Details Date Type Department Care Team (Late st Contact Info) Description 04/11/2024 3:30 PM CDT Office Visit [facility] - Pulmonology [address] [place] [address], [place] [id number] Chapito Ortega MD [address] [place] [address] of the chest (Primary Dx); [...] ANCA, HP panel, anti-dsDNA, myositis panel, anti-Mike- anti-U1-PRESS OPERATOR PRINTING, SS-A, and SS-B ordered. These were not [...] 08/31/2015 Hodgkin's disease (HCC) 01/16/2013 Hodgkins lymphoma ([facility]) 2012 Inadequate sleep hygiene 07/18/2021 Infectious disease [...] technical, or vocational program Occupational History Occupation: [employer] Tobacco Use Smoking status: Former Packs/day: 1.00 [...] mouth as directed, Disp: , Rfl: NYSTOP [id number] UNIT/GM powder, Apply 1 Dose to affected [...] ANCA, HP panel, anti-dsDNA, myositis panel, anti-Mike, PRESS OPERATOR PRINTING, SS-A, and SS-B - New Medications prescribed: [...] PGY-6, Pulmonary, Critical Care, and Sleep Medicine [facility] Associated attestation - Don Manuel MD - 04/17/2024 2:33 PM CDT I saw and evaluated the patient. I reviewed the resident???s note and agree with findings and plan as documented in the resident???s note Don Manuel MD Division of Pulmonary, Critical Care, & Sleep Medicine [facility] [employer] P: [phone] 04/17/2024 , 2:33 PM documented in this encounter Plan of Treatment Scheduled Orders Name Type Priority Associated Diagnoses Orde r Schedule XR Chest 2Vw Imaging Routine Abnormal CT of the chest 1 Occurrences starting 04/11/2024 until 04/11/2025 LUPUS PANEL C (DSDNA,PRESS OPERATOR PRINTING,SM,SS-A, SS-B) Lab Routine Abnormal CT of the [...] Hunter MD - 05/22/2024 12:11 PM CDT [facility] DEPARTMENT OF PULMONARY, CRITICAL CARE, [...] of Pulmonary, Critical Care, and Sleep Medicine [facility] I have personally reviewed and agree with the fellow's interpretation. Turner Hunter MD Narrative Turner Hunter MD - 05/22/2024 12:11 PM CDT Dar Sheriff MD ? 05/22/2024 ??9:26 PM Don Manuel MD RESPIRATORY THERAPY ORDERABLES * SIX MINUTE WALK (05/22/2024 12:10 PM CDT) Impressions Turner Hunter MD - 05/22/2024 12:10 PM CDT [facility] DEPARTMENT OF PULMONARY, CRITICAL CARE, [...] Sheriff MD Pulmonary and Critical Care Fellow [facility] Pager Number [phone] I have personally reviewed and agree with the fellow's interpretation. Turner Hunter MD Narrative Turner Hunter MD - 05/22/2024 12:10 PM CDT Dar Sheriff MD ? 05/22/2024 ??9:26 PM Don Manuel MD RESPIRATORY THERAPY ORDERABLES * COMPLETE PFT W/WO BRONCHODILATOR (05/22/2024 12:09 PM CDT) Impressions Turner Hunter MD - 05/22/2024 12:09 PM CDT [facility] DEPARTMENT OF PULMONARY, CRITICAL CARE, [...] of Pulmonary, Critical Care, and Sleep Medicine [facility] I have [...] > Dictated by Hanna Tyson MD, MD (radiology therapist). I, Madhu Olivier MD have personally reviewed [...] > Dictated by Hanna Tyson MD, MD (radiology therapist). I, Madhu Olivier MD have personally reviewed and interpreted this examination/study. > Interpreting Provider: Madhu Olivier MD on 05/22/2024 7:[address] ORDERABLES * PNEUMONITIS HYPERSENSITIVE PANEL (04/11/2024 4:52 PM CDT) Allergen Feather Mix Negative Negative kU/L 04/17/2024 1:59 AM CDT [employer] ([facility]) Aspergillus fumigatus 1 None Detected None Detected 04/17/2024 1:59 AM CDT [facility] ([facility]) Aspergillus fumigatus 6 See Note None Detected 04/17/2024 1:59 AM CDT [facility] ([facility]) Comment: A. fumigatus #6 Ab, Precipitin testing not performed due to reagent backorder. A credit will be issued for this component. Aureobasidium Pullulans None Detected None Detected 04/17/2024 1:59 AM CDT [facility] ([facility]) Long Point Serum None Detected None Detected 04/17/2024 1:59 AM CDT [facility] ([facility]) Micropolyspora faeni None Detected None Detected 04/17/2024 1:59 AM CDT [facility] ([facility]) Aspergillus flavus None Detected None Detected 04/17/2024 1:59 AM CDT [facility] ([facility]) Aspergillus fumigatus 2 None Detected None Detected 04/17/2024 1:59 AM CDT [facility] ([facility]) Aspergillus fumigatus 3 None Detected None Detected 04/17/2024 1:59 AM CDT [facility] ([facility]) Saccharomonospora viridis None Detected None Detected 04/17/2024 1:59 AM CDT [facility] ([facility]) Thermoactinomyces candidus None Detected None Detected 04/17/2024 1:59 AM CDT [facility] ([facility]) Comment: Testing includes antibodies directed at Aureobasidium pullulans, Aspergillus flavus, Aspergillus fumigatus #1, Aspergillus fumigatus #2, Aspergillus fumigatus #3, Aspergillus fumigatus #6, Micropolyspora faeni, Long Point Serum, Saccharomonospora viridis, and Thermoactinomyces candidus. Allergen Phoma betae <0.10 <=0.34 kU/L 04/17/2024 1:59 AM CDT [facility] ([facility]) Allergen Beef <0.10 <=0.34 kU/L 04/17/2024 1:59 AM CDT [facility] ([facility]) Allergen Pork <0.10 <=0.34 kU/L 04/17/2024 1:59 AM CDT [facility] ([facility]) Immunocap Score See Note 1:59 AM CDT [facility] ([facility]) Comment: REFERENCE INTERVAL: Allergen, Interpretation Less than [...] clinical allergy or even anaphylaxis. Performed By: [facility] [address] [place] [address] Diamond Setter: Sivakumar Levi MD, PhD CLIA Number: [id number] Blood BLOOD SPECIMEN / Unknown Lab Venipuncture / Unknown 04/11/2024 4:52 PM CDT 04/11/2024 5:31 PM CDT Don Manuel MD LAB - CHEMISTRY CHRISTOPHER DE LA GARZA [facility] Organization Address City/State/ZIP Co de Phone Number [employer] [facility]) [address] [place] [address], [facility] * ANCA VASCULITIS PANEL (04/11/2024 4:52 PM CDT) [facility] Myeloperoxidase Antibody 0 0 - 19 AU/mL 04/14/2024 11:59 PM CDT [employer] ([facility]) Comment: INTERPRETIVE INFORMATION: Myeloperoxidase Abs, IgG ??19 AU/mL or Less ......... Negative ??20-25 AU/mL .............. Equivocal ??26 AU/mL or Greater ...... Positive Approximately 90% of patients with a P-ANCA pattern by IFA have antibodies specific for MPO. Serine Proteinase 3 IgG 0 0 - 19 AU/mL 04/14/2024 11:59 PM CDT [facility] [employer] [facility]) Comment: INTERPRETIVE INFORMATION: Serine Proteinase 3, IgG ??19 AU/mL or Less ........ Negative ??20-25 AU/mL ............. Equivocal ??26 AU/mL or Greater ..... Positive Approximately 85% of patients with a C-ANCA pattern by IFA have antibodies specific for PR3. ANCA Titer IFA <1:20 <1:20 04/14/2024 11:59 PM CDT [facility] [employer] [facility]) ANCA Pattern IFA None Detected None Detected 04/14/2024 11:59 PM CDT [facility] [employer] [facility]) Comment: INTERPRETIVE INFORMATION: ANCA IFA Pattern Neutrophil Cytoplasmic Antibodies (C-ANCA = granular cytoplasmic staining, P-ANCA = perinuclear staining) are found in the serum of over 90 percent of patients with certain necrotizing systemic vasculitides, and usually in less than 5 percent of patients with collagen vascular disease or arthritis. Performed By: [facility] [address] [place] [address] Diamond Setter: Sivakumar Levi MD, PhD CLIA Number: [id number] Blood BLOOD SPECIMEN / Unknown Lab Venipuncture / Unknown 04/11/2024 4:52 PM CDT 04/11/2024 5:09 PM CDT Don Manuel MD LAB - CHEMISTRY CHRISTOPHER DE LA GARZA [facility] Organization Address City/State/ZIP Co de Phone Number [facility] [employer] [facility]) [address] [place] [address] * AURY BLOOD SCREEN W/REFLEX TITER (04/11/2024 4:52 PM CDT) Pathologist [facility] AURY IgG None Detected None Detected 04/13/2024 3:43 PM [facility]) Comment: If suspicion of connective tissue disease is strong and AURY EIA is negative, consider testing for AURY by IFA ([id number]). INTERPRETIVE INFORMATION: Anti-Nuclear Antibodies (AURY), IgG by SINCERE Antinuclear Antibodies (AURY), IgG by SINCERE: AURY specimens are screened using enzyme-linked immunosorbent assay (SINCERE) methodology. All SINCERE results reported as Detected are further tested by indirect fluorescent assay (IFA) using HEp-2 substrate with an IgG-specific conjugate. The AURY SINCERE screen is designed to detect antibodies against dsDNA, histones, SS-A (Ro), SS-B (La), Mike, Mike/PRESS OPERATOR PRINTING, Scl-70, Susanne-1, centromeric proteins, other antigens extracted from the HEp-2 cell nucleus. AURY SINCERE assays have been reported to have lower sensitivities than AURY IFA for systemic autoimmune rheumatic diseases (SARD). Negative results do not necessarily rule out SARD. Performed By: [facility] [employer] [address] [place] [id number] Diamond Setter: Sivakumar Levi MD, PhD CLIA Number: [id number] Blood BLOOD SPECIMEN / Unknown Lab Venipuncture / Unknown 04/11/2024 4:52 PM CDT 04/11/2024 5:32 PM CDT Don Manuel MD LAB - CHEMISTRY ORDE [facility] Organization Address City/State/ZIP Co de Phone Number [facility]) [address] [place] [address], [facility] * CBC W/ DIFFERENTIAL (04/11/2024 4:52 PM CDT) WBC 8.6 4.0 - 10.7 x10E9/L 04/11/2024 5:45 PM CDT [facility] RBC Count 4.62 3.90 - 5.20 x10E12/L 04/11/2024 5:45 PM CDT [facility] Hemoglobin 15.1 11.9 - 15.8 g/dL 04/11/2024 5:45 PM CDT [facility] Hematocrit 43.2 34.8 - 46.1 % 04/11/2024 5:45 PM CDT [facility] MCV 93.5 80.0 - 98.0 fL 04/11/2024 5:45 PM [facility] MCH 32.7 26.7 - 33.6 pg 04/11/2024 5:45 PM [facility] MCHC 35.0 31.7 - 36.3 g/dL 04/11/2024 5:45 PM [facility] RDW-CV 12.9 11.3 - 14.8 % 04/11/2024 5:45 PM [facility] Platelet Count 214 150 - 420 x10E9/L 04/11/2024 5:45 PM [facility] MPV 8.8 7.8 - 11.4 fL 04/11/2024 5:45 PM [facility] Neutrophil % 58.4 41.0 - 74.0 % 04/11/2024 5:45 PM [facility] Lymphocyte % 30.4 17.0 - 47.0 % 04/11/2024 5:45 PM [facility] Monocyte % 6.3 3.0 - 11.0 % 04/11/2024 5:45 PM [facility] Eosinophil % 4.1 0.0 - 7.0 % 04/11/2024 5:45 PM [facility] Basophil % 0.6 0.0 - 1.6 % 04/11/2024 5:45 PM [facility] Immature Granulocytes % 0.2 0.0 - 1.0 % 04/11/2024 5:45 PM [facility] Neutrophil Absolute 5.00 1.60 - 7.50 x10E9/L 04/11/2024 5:45 PM [facility] Lymphocyte Absolute 2.60 1.00 - 4.40 x10E9/L 04/11/2024 5:45 PM [facility] Monocyte Absolute 0.54 0.15 - 1.00 x10E9/L 04/11/2024 5:45 PM [facility] Eosinophil Absolute 0.35 0.00 - 0.60 x10E9/L 04/11/2024 5:45 PM [facility] Basophil Absolute 0.05 0.00 - 0.13 x10E9/L 04/11/2024 5:45 PM CDT [facility] Blood BLOOD SPECIMEN / Unknown Lab Venipuncture / Unknown 04/11/2024 4:52 PM CDT 04/11/2024 5:28 PM CDT Don Manuel MD LAB - HEMATOLOGY ORD VICENTA Performing Organization Address City/[facility]/ZIP Co de Phone Number [facility] [address] [place] [address], [facility] [phone] * RHEUMATOID FACTOR BLOOD QUANTITATIVE (04/11/2024 4:52 PM CDT) Rheumatoid Factor <15 <30 IU/mL 04/11/2024 5:44 PM CDT [facility] Rheumatoid Factor Screen Negative Negative 04/11/2024 5:44 PM CDT [facility] Blood BLOOD SPECIMEN / Unknown Lab Venipuncture / Unknown 04/11/2024 4:52 PM CDT 04/11/2024 5:32 PM CDT Don Manuel MD LAB - CHEMISTRY CHRISTOPHER DE LA GARZA Performing Organization Address [facility]/ZIP Co de Phone Number [facility] [address] [place] [address], [place] [phone] * CYCLIC CITRUL PEPTIDE ANTIBODY IGG/IGA (CCP) (04/11/2024 4:52 PM CDT) CCP Antibodies IgG/IgA 4 0 - 19 units 04/13/2024 3:10 PM CDT [facility] ([facility]) Comment: ?Negative ? <20 ?Weak positive ?20 - 39 ?Moderate positive ??40 - 59 ?Strong positive ?>59 Blood BLOOD SPECIMEN / Unknown Lab Venipuncture / Unknown 04/11/2024 4:52 PM CDT 04/11/2024 5:31 PM CDT Narrative [facility] ([facility]) - 04/13/2024 3:10 PM CDT Performed at: ??01 - [facility] [address] [place], [place] ??[id number] Rehabilitation Program Coordinator: Edison Chavez PhD, Phone: ??[phone] Don Manuel MD LAB - SEROLOGY ORDER [facility] ([facility]) [address] [place] [address], [facility] * MYOSITIS ANTIBODY PANEL COMPREHENSIVE (04/11/2024 4:52 PM CDT) SAE1 (SUMO activating enzyme) Ab Negative Negative 04/19/2024 4:47 PM CDT [facility]) NXP2 (Nuclear matrix protein-2) Ab Negative Negative 04/19/2024 4:47 PM CDT [facility]) MDA5 (CADM-140) Ab Negative Negative 2023 4:47 PM CDT [facility]) TIF-1 gamma (155 kDa) Ab Negative Negative 04/19/2024 4:47 PM CDT [facility]) Myositis Panel Interpretive Data See Note 04/19/2024 4:47 PM CDT [facility]) Comment: INTERPRETIVE INFORMATION: Extended Myositis Panel [...] . . . . . . ??X Mike/PRESS OPERATOR PRINTING (SONU) Ab, IgG ??. . . . [...] . . . . ??X Fibrillarin (U3 PRESS OPERATOR PRINTING) Ab, IgG . . . . . [...] developed and its performance characteristics determined by [facility]. It has not been cleared or approved by the US Food and Drug Administration. This test was performed in a CLIA certified laboratory and is intended for clinical purposes. Mi-2 Antibody Negative Negative 04/19/2024 4:47 PM CDT [employer] ([facility]) P155/140 Antibody Negative Negative 024 4:47 PM CDT [facility] ([facility]) PL-12 Antibody Negative Negative 04/19/2024 4:47 PM CDT [facility] ([facility]) PL-7 Antibody Negative Negative 04/19/2024 4:47 PM CDT [facility] ([facility]) OJ Antibody Negative Negative 04/19/2024 4:47 PM CDT [facility] ([facility]) EJ Antibody Negative Negative 04/19/2024 4:47 PM CDT [facility] ([facility]) SRP Antibody Negative Negative 04/19/2024 4:47 PM CDT [facility] ([facility]) Susanne-1 Antibody IgG 0 0 - 40 AU/mL 04/19/2024 4:47 PM CDT [facility] ([facility]) Comment: INTERPRETIVE INFORMATION: ??Susanne-1 Antibody, IgG ??29 AU/mL or less.........Negative ??30-40 AU/mL..............Equivocal ??41 AU/mL or greater......Positive Presence of Susanne-1 (antihistidyl transfer RNA [t-RNA' synthetase) antibody is associated with polymyositis and may also be seen in patients with dermatomyositis. Susanne-1 antibody is associated with pulmonary involvement (interstitial lung disease), Raynaud phenomenon, arthritis, and gse mechanic's hands (implicated in antisynthetase syndrome). KU Antibody Negative Negative 04/19/2024 4:47 PM CDT [facility] ([facility]) Mike/PRESS OPERATOR PRINTING (SONU) Antibody IgG 3 0 - 19 Units 04/19/2024 4:47 PM CDT [facility] ([facility]) Comment: INTERPRETIVE INFORMATION: Mike/PRESS OPERATOR PRINTING (SONU) Antibody, IgG ??19 Units or Less ............. Negative ??20 to 39 Units ............... Weak Positive ??40 to 80 Units ............... Moderate Positive ??81 Units or greater .......... Strong Positive Mike/PRESS OPERATOR PRINTING antibodies are frequently seen in patients with mixed connective tissue disease (MCTD) and are also associated with other systemic autoimmune rheumatic diseases (SARDs) such as systemic lupus erythematosus (SLE), systemic sclerosis, and myositis. Antibodies targeting the Mike/PRESS OPERATOR PRINTING antigenic complex also recognize Mike antigens, therefore, the Mike antibody response must be considered when interpreting these results. PM/Scl 100 Antibody IgG Negative Negative 04/19/2024 4:47 PM CDT [facility] ([facility]) Comment: INTERPRETIVE INFORMATION: PM/Scl-100 Antibody, IgG by [...] developed and its performance characteristics determined by [facility]. It has not been cleared or approved by the US Food and Drug Administration. This test was performed in a CLIA certified laboratory and is intended for clinical purposes. SS-A 52 Antibody 2 0 - 40 AU/mL 04/19/2024 4:47 [facility] ([facility]) Comment: INTERPRETIVE INFORMATION: SSA-52 (Ro52) (SONU) Antibody, [...] - 40 AU/mL 04/19/2024 4:47 PM CDT [facility] ([facility]) Comment: REFERENCE INTERVAL: SSA-60 (Ro60) (SONU) Antibody, IgG ??29 AU/mL or Less ............. Negative ??30 - 40 AU/mL ................ Equivocal ??41 AU/mL or Greater .......... Positive Fibrillarin (U3 PRESS OPERATOR PRINTING) Antibody IgG Negative Negative 04/19/2024 4:47 PM CDT [facility] ([facility]) Comment: Interpretive Information: Fibrillarin (U3 PRESS OPERATOR PRINTING) Antibody, IgG The presence of fibrillarin (U3-PRESS OPERATOR PRINTING) IgG antibodies in association with an AURY [...] a multi-ethnic cohort of [facility] patients (n=98), U3-PRESS OPERATOR PRINTING antibodies detected by immunoblot had an agreement of 98.9 percent with the gold standard immunoprecipitation (IP) assay. Approximately 71 percent (5/7) of the borderline U3-PRESS OPERATOR PRINTING results with AURY nucleolar pattern in this cohort were IP negative. This test was developed and its performance characteristics determined by [facility]. It has not been cleared or approved by the US Food and Drug Administration. This test was performed in a CLIA certified laboratory and is intended for clinical purposes. Performed By: [facility] [address] [place] [address] Diamond Setter: Sivakumar Levi MD, PhD CLIA Number: [id number] Blood BLOOD SPECIMEN / Unknown Lab Venipuncture / Unknown 04/11/2024 4:52 PM CDT 04/11/2024 5:31 PM CDT Don Manuel MD LAB - CHEMISTRY CHRISTOPHER DE LA GARZA [facility] [employer] ([facility]) [address] [place] [address], [facility] * HIV-1 HIV-2 ANTIBODY + HIV P24 AG PANEL (04/11/2024 4:52 PM CDT) HIV Antigen/Antibod y 1 & 2 Non-reacti ve Non-react teena 04/11/2024 6:04 PM CDT [facility] Comment:No Laboratory eviden ce of HIV infection. Blood BLOOD SPECIMEN / Unknown Lab Venipuncture / Unknown 04/11/2024 4:52 PM CDT 04/11/2024 5:32 PM CDT Don Manuel MD LAB - CHEMISTRY CHRISTOPHER DE LA GARZA [facility] [address] [place] [address], [facility] [phone] documented in this encounter Visit Diagnoses Diagnosis [...] organs documented in this encounter Care Teams Lead Esthetician Relationship Specialty Start Date End Date Blake Lindsey MD [address] [place] [address] PCP - General 05/20/16 documented as of this encounter
--- OUTSIDE RECORDS SUMMARY | 2024-07-29 17:49 | XMS_ITS | Encounter Summary ---
Author Organization [facility] Health Address [address] [place] [address] Care Team Providers Care Study Assistant Name Role Phone Blake Lindsey MD Primary Care Provider [phone] Encounter Details Date Type Department Care Team (Late st Contact Info) Description 01/27/2022 Orders Only [facility] [address] [place] [address] Abhilash Roca MD [address] [address] Social History Tobacco Use Types [...] on filedocumented in this encounter Care Teams Study Assistant Relationship Specialty Start Date End Date Blake Lindsey MD [address] [place] [address] PCP - General 05/20/16 documented as of this encounter
--- OUTSIDE RECORDS SUMMARY | 2024-07-29 17:49 | XMS_ITS | Encounter Summary ---
Author Organization [facility] Health Address [address] [place] [address] Care Team Providers Care Referral Agent Name Role Phone Blake Lindsey MD Primary Care Provider [phone] Reason for Visit * Reason Comments Refill Request Encounter Details Date Type Department Care Team (Late st Contact Info) Description 04/08/2022 Refill [facility] Sleep Disorder [place] [address] [place] [address] Lowell Pop MD [address] OF PULMONARY/[place] [address] Refill Request Social History Tobacco Use Types [...] type documented in this encounter Care Teams Referral Agent Relationship Specialty Start Date End Date Blake Lindsey MD [address] [place] [address] PCP - General 05/20/16 documented as of this encounter
--- OUTSIDE RECORDS SUMMARY | 2024-07-29 17:49 | XMS_ITS | Encounter Summary ---
Author Organization [facility] Health Address [address] [facility] [place] [address] Care Team Providers Care Truck Body Builder Name Role Phone Blake Lindsey MD Primary Care Provider [phone] Encounter Details Date Type Department Care Team [...] on filedocumented in this encounter Care Teams Truck Body Builder Relationship Specialty Start Date End Date Blake Lindsey MD [address] [place] [address] PCP - General 05/20/16 documented as of this encounter
--- OUTSIDE RECORDS SUMMARY | 2024-07-29 17:49 | XMS_ITS | Encounter Summary ---
Author Organization [facility] Health Address [address] [place] [address] Care Team Providers Care Inspector Watch Assembly Name Role Phone Blaek Lindsey MD Primary Care Provider [phone] Reason for Visit * Reason Onset Date Comments Appointment 08/25/2022 Encounter Details Date Type Department Care Team (Late st Contact Info) Description 08/25/2022 Telephone [facility] [address] [place] [phone] Karina De La Vega Appointment Social [...] on filedocumented in this encounter Care Teams Inspector Watch Assembly Relationship Specialty Start Date End Date Blake Lindsey MD [address] [place] [address] PCP - General 05/20/16 documented as of this encounter
--- OUTSIDE RECORDS SUMMARY | 2024-07-29 17:49 | XMS_ITS | Encounter Summary ---
Author Organization [facility] Health Address [address] [place] [address] Care Team Providers Care Probation Counselor Name Role Phone Blake Lindsey MD Primary Care Provider [phone] Reason for Visit * Reason Onset Date Comments Lower Extremity Problem Rt, Eval Pain Hip 08/13/2021 Encounter Details Date Type Department Care Team (Late st Contact Info) Description 08/13/2021 2:10 PM STRIP CLEANER Office Visit [facility] - Orthopedics [address] [place] [address] [place] [phone] Wai Lowry MD [address] [place] [address] [place] [address] Hip pain (Primary Dx); Trochanteric [...] COVID-19? No / Unsure 08/13/2021 3:42 PM STRIP CLEANER documented as of this encounter Functional Status [...] Wai Lowry MD - 08/13/2021 2:33 PM STRIP CLEANER Images from the original note were not [...] survey that will be sent to you.* [facility] Orthopaedic office contact information: [facility] ([facility]) [address] [facility], First Floor, [place] [address] [facility] Outpatient Operating Room[facility] [place] [address] [facility] [address], [address], [place] [address] [facility] [address] [place] [address] [facility] [address] [facility], [place] [address] Please do not hesitate to contact me with questions regarding her or any other patient in the future. Our clinical nurse, Heather Ralph, can be reached at and at [email or web address]. Sincerely, Wai Lowry MD Team Physician for the [facility] [email or web address] P CLEANER documented in this encounter Progress Notes * Steven Gill RN - 08/13/2021 2:41 PM CST Here for right hip eval.- TS P CLEANER * Wai Lowry MD - 08/13/2021 2:31 PM CST Images from the original note were not included. Wai Lowry MD [facility] Adult and Pediatric Date [...] fluticasone propionate (FLONASE) 50 MCG/ACT nasal spray [place] 2 sprays into each nostril once daily [...] To bilateral nares) 22g 1 ??? NYSTOP 930886 UNIT/GM powder Apply 1 Dose to affected [...] today. Social History Occupational History ??? Occupation: [employer] Tobacco Use ??? Smoking status: Former Smoker [...] reached at . Sincerely, Wai Lowry MD P CLEANER documented in this encounter Procedure Notes * Wai Lowry MD - 08/14/2021 2:09 PM CSTAssociated Order(s): PROCDOC LARGE JOINT INJECTION Procedure(s): KY DRAIN/INJECT LARGE JOINT/BURSA Pre-Procedure Diagnose(s): Hip pain; Trochanteric bursitis of right hip INJECTION PROCEDURE NOTE: The injection site was marked. A timeout was performed. Under sterile conditions, without complications, tolerated well by the patient, 4 cc ropivacaine and 80 mg (2 cc) triamcinolone were injected into the right greater trochanteric bursa. P CLEANER documented in this encounter Plan of Treatment Not on file documented as of this encounter Procedures Procedure Name Priority Date/Time Associated Diagnosis Comments KY DRAIN/INJECT LARGE JOINT/BURSA Routine 08/14/2021 2:09 PM STRIP CLEANER Hip pain Trochanteric bursitis of right hip documented in this encounter Results * [place] DRAIN/INJECT LARGE JOINT/BURSA (08/14/2021 2:09 PM STRIP CLEANER) Narrative Wai Lowry MD - 08/14/2021 2:09 PM STRIP CLEANER Wai Lowry MD ? 08/14/2021 ??2:09 PM [...] at 1545 $ Given 08/13/2021 3:20 PM STRIP CLEANER 4 mL Right Hip triamcinolone acetonide (Kenalog-40) injection 80 mg 80 mg, Intra-articular, ONCE, 1 dose, On Wed08/13/21 at 1545, Shake well before using. $ Given 08/13/2021 3:20 PM STRIP CLEANER 80 mg Right Hip documented in this encounter Care Teams Probation Counselor Relationship Specialty Start Date End Date Blake Lindsey MD [address] [place] [phone] PCP - General 05/20/16 documented as of this encounter
--- OUTSIDE RECORDS SUMMARY | 2024-07-29 17:49 | XMS_ITS | Encounter Summary ---
Author Organization [facility] Health Address [address] [place] [address] Care Team Providers Care Academic Department Chair Name Role Phone Blake Lindsey MD Primary Care Provider [phone] Encounter Details Date Type Department Care Team (Latest Contact Info) Description 01/27/2022 10:22 AM CDT - 01/27/2022 11:59 PM CDT Hospital Encounter [facility] [address] [facility] 2nd [place] [address] Discharge Disposition: Home or Self Care Social [...] bilateral nares 22 g 1 03/17/2021 NYSTOP 405650 UNIT/GM powder Apply 1 Dose to affected [...] fluticasone propionate (FLONASE) 50 MCG/ACT nasal spray [place] 2 sprays into each nostril once daily [...] 7 - 26 mg/dL 01/27/2022 11:04 AM [facility] Creatinine 0.69 0.56 - 0.96 mg/dL 01/27/2022 11:04 AM [facility] Sodium 145 136 - 145 mmol/L 01/27/2022 11:04 AM [facility] Potassium 3.3(L) 3.5 - 4.5 mmol/L 01/27/2022 11:04 AM [facility] Chloride 110(H) 98 - 107 mmol/L 01/27/2022 11:04 AM [facility] CO2 24 22 - 29 mmol/L 01/27/2022 11:04 AM [facility] Glucose 131(H) 70 - 115 mg/dL 01/27/2022 11:04 AM [facility] Calcium 9.8 8.4 - 10.2 mg/dL 01/27/2022 11:04 AM [facility] Protein Total 7.3 6.0 - 8.3 g/dL 01/27/2022 11:04 AM [facility] Albumin 3.8 3.4 - 5.0 g/dL 01/27/2022 11:04 AM [facility] Bilirubin Total 0.5 0.2 - 1.2 mg/dL 01/27/2022 11:04 AM [facility] Alkaline Phosphatase 84 40 - 150 U/L 01/27/2022 11:04 AM [facility] ALT 13 5 - 55 U/L 01/27/2022 11:04 AM [facility] AST 11 5 - 34 U/L 01/27/2022 11:04 AM [facility] Anion Gap 14 8 - 18 01/27/2022 11:04 AM [facility] BUN/Creatinine Ratio 14 7 - 23 01/27/2022 11:04 AM [facility] Osmolality Calculated 301(H) 270 - 300 mOsm/kg 01/27/2022 11:04 AM [facility] Albumin/Globulin Ratio 1.1 1.1 - 2.3 01/27/2022 11:04 AM [facility] eGFR by CKD-EPI >90 >=90 mL/min/1.7 3 m2 01/27/2022 11:04 AM [facility] Blood BLOOD SPECIMEN / Unknown Lab Venipuncture / Unknown 01/27/2022 10:27 AM CDT 01/27/2022 10:35 AM [facility] Miguelinaote [facility] - PASTORAL MINISTRIES PROFESSOR RY ORDERABLES [facility] [address] [place] [phone], [facility] [phone] * (ABNORMAL) CBC WITH DIFFERENTIAL (01/27/2022 10:27 AM T) WBC 7.1 3.5 - 10.5 10? 3 /uL 01/27/2022 10:41 AM [facility] RBC 4.46 3.80 - 5.20 10? 6 /uL 01/27/2022 10:41 AM [facility] Hemoglobin 14.3 12.0 - 15.6 g/dL 01/27/2022 10:41 AM [facility] Hematocrit 42.2 35.0 - 45.0 % 01/27/2022 10:41 AM [facility] MCV 94.6 80.7 - 98.3 fL 01/27/2022 10:41 AM [facility] MCH 32.1 26.7 - 34.0 pg 01/27/2022 10:41 AM [facility] MCHC 33.9 30.8 - 35.9 g/dL 01/27/2022 10:41 AM [facility] Platelet Count 209 150 - 400 10? 3 /uL 01/27/2022 10:41 AM [facility] RDW-SD 43.3 36.0 - 50.0 fL 01/27/2022 10:41 AM [facility] RDW-CV 12.5 11.2 - 14.8 % 01/27/2022 10:41 AM [facility] MPV 9.0(L) 9.4 - 12.9 fL 01/27/2022 10:41 AM [facility] nRBC Absolute 0.00 0 10? 3 /uL 01/27/2022 10:41 AM [facility] nRBC Auto 0.0 0 /100 WBC 01/27/2022 10:41 AM [facility] Neutrophils % 65.9 35.0 - 70.0 % 01/27/2022 10:41 AM [facility] Lymphocytes % 23.2 20.0 - 43.0 % 01/27/2022 10:41 AM [facility] Monocytes % 6.3 5.0 - 13.0 % 01/27/2022 10:41 AM [facility] Eosinophils % 3.7 0.0 - 6.0 % 01/27/2022 10:41 AM [facility] Basophil % 0.6 0.0 - 2.0 % 01/27/2022 10:41 AM [facility] Neutrophils Absolute 4.70 1.60 - 7.00 10? 3 /uL 01/27/2022 10:41 AM [facility] Lymphocyte Absolute 1.65 1.10 - 3.90 10? 3 /uL 01/27/2022 10:41 AM [facility] Monocytes Absolute 0.45 0.26 - 1.07 10? 3 /uL 01/27/2022 10:[address] [facility] Eosinophils Absolute 0.26 0.00 - 0.47 10? 3 /uL 01/27/2022 10:[address] [facility] Basophils Absolute 0.04 0.00 - 0.08 10? 3 /uL 01/27/2022 10:[address] [facility] Immature Granulocytes % 0.3 0.0 - 1.0 % 01/27/2022 10:[address] [facility] Immature Granulocytes Absolute 0.02 01/27/2022 10:[address] [facility] Blood BLOOD SPECIMEN / Unknown Lab Venipuncture / Unknown 01/27/2022 10:27 AM CDT 01/27/2022 10:35 AM CDT [facility] - HEMATOL OGY ORDERABLES Performing Organization Address City/State/[facility] Co de Phone Number [facility] [address] [place] [phone] [phone] documented in this encounter Visit Diagnoses Diagnosis Basal cell carcinoma (BCC) of scalp documented in this encounter Care Teams Academic Department Chair Relationship Specialty Start Date End Date Blake Lindsey MD [address] [place] [address] PCP - General 05/20/16 documented as of this encounter
--- OUTSIDE RECORDS SUMMARY | 2024-07-29 17:49 | XMS_ITS | Encounter Summary ---
Author Organization [facility] Health Address [address] [facility] [place] [address] Care Team Providers Care Highway Worker Name Role Phone Blake Lindsey MD Primary Care Provider Encounter Details Date Type Department Care Team (Late st Contact Info) Description 08/24/2022 Orders Only [facility] [address] [facility] [place] [address] Jennifer Dia PA-C [facility] [place] [address] Bilateral hand pain Social History [...] LEFT 3VW OR MORE (10/07/2022 9:10 AM EMBROIDERY WORKER) Anatomical Region Laterality Modality Wrist / Hand Radiographic Jonna ging 10/07/2022 9:56 AM EMBROIDERY WORKER Impressions 10/07/2022 9:59 AM EMBROIDERY WORKER IMPRESSION: Minimal degenerative changes. > Interpreting Provider: Emil Malone MD on 10/07/2022 9:59 AM Narrative 10/07/2022 9:59 AM EMBROIDERY WORKER PROCEDURE: ??XR HAND LEFT 3VW OR MORE, XR HAND RIGHT 3VW OR MORE, DATE/TIME OF EXAM: ??10/07/2022 9:10 AM, LOCATION ??[facility] INDICATION: M79.641: Bilateral hand pain M79.642: [...] MORE,DATE/TIME OF EXAM: 10/07/2022 9:10 AM, LOCATION [facility] INDICATION: M79.641: Bilateral hand pain M79.642: [...] RIGHT 3VW OR MORE (10/07/2022 9:09 AM EMBROIDERY WORKER) Anatomical Region Laterality Modality Wrist / Hand Radiographic Jonna ging 10/07/2022 9:56 AM EMBROIDERY WORKER Impressions 10/07/2022 9:59 AM EMBROIDERY WORKER IMPRESSION: Minimal degenerative changes. > Interpreting Provider: Emil Malone MD on 10/07/2022 9:59 AM Narrative 10/07/2022 9:59 AM EMBROIDERY WORKER PROCEDURE: ??XR HAND LEFT 3VW OR MORE, XR HAND RIGHT 3VW OR MORE, DATE/TIME OF EXAM: ??10/07/2022 9:10 AM, LOCATION ??[facility] INDICATION: M79.641: Bilateral hand pain M79.642: [...] MORE,DATE/TIME OF EXAM: 10/07/2022 9:10 AM, LOCATION [facility] INDICATION: M79.641: Bilateral hand pain M79.642: Bilateral hand pain ADDITIONAL CLINICAL INFORMATION: Ordering Provider Reason For Exam: [facility] [place] Note: Additional: COMPARISON: None. [...] limb documented in this encounter Care Teams Highway Worker Relationship Specialty Start Date End Date Blake Lindsey MD [address] [place] [address] PCP - General 05/20/16 documented as of this encounter
--- OUTSIDE RECORDS SUMMARY | 2024-07-29 17:49 | XMS_ITS | Encounter Summary ---
Author Organization [facility] Health Address [address] [facility] [place] [address] Care Team Providers Care Station Baggage Agent Name Role Phone Blake Lindsey MD Primary Care Provider [phone] Reason for Visit * Reason Comments Ear Problem Encounter Details Date Type Department Care Team (Late st Contact Info) Description 08/26/2021 1:45 PM AMALGAMATOR Office Visit [facility] [address] [place] [address], [place] [address] Jah Ochoa MD [address] [place] [address] [place] [address] Nasal crusting (Primary Dx) Social History Tobacco [...] COVID-19? No / Unsure 08/13/2021 3:42 PM AMALGAMATOR documented as of this encounter Last Filed Vital Signs Vital Sign Reading Time Taken Comments Blood Pressure 115/79 08/26/2021 1:58 PM AMALGAMATOR Pulse 83 08/26/2021 1:58 PM AMALGAMATOR Temperature 36.8 ??C (98.3 ??F) 08/26/2021 1:58 PM CS T Respiratory Rate - - Oxygen Saturation - - Inhaled Oxygen Concentration - - Weight 83.5 kg (184 lb) 08/26/2021 1:58 PM AMALGAMATOR Height 158.8 cm (5' 2.5 ) 08/26/2021 1:58 PM AMALGAMATOR Body Mass Index 33.12 08/26/2021 1:58 PM AMALGAMATOR documented in this encounter Functional Status Functional [...] Sanju Wesley MA - 08/26/2021 1:59 PM AMALGAMATOR Thank you for visiting [facility] Otolaryngology - Head & Neck Surgery. We [...] an appointment, please call our office at [phone] Wednesday through Wednesday from 8:00 am to4:30 pm. You can also request a routine appointment through your [facility] account. ??? Prescription Refills Contact your pharmacy [...] the medical exchange at and ask the button attaching machine operator to page the ENT physician weapons and tactics instructor. *Caller ID blocking service will need to be turned off for your call to be returned. We also specialize in Hearing Aids, Allergy testing, swallowing disorders, voice problems, cancer diagnosis, and so much more. Visit our website at [email or web address] for information about our practice and an interactive health encyclopedia. GAMATOR documented in this encounter Progress Notes * [...] been previously seen by Nia Augustin, ENT SERVER SUPPORT TECHNICIAN for this 08/22/20. At that time had [...] ? BIOPSY ? HX SPINAL FUSION ? DC FEMUR/KNEE SURG UNLISTED ? both knees ??? [...] fluticasone propionate (FLONASE) 50 MCG/ACT nasal spray [place] 2 sprays into each nostril once daily [...] 0 ??? NARCAN 4 MG/0.1ML nasal spray [place] 4 mg into each nostril as needed (Patient not taking: Reported on 07/01/2021) ? NYSTOP 778640 UNIT/GM powder Apply 1 Dose to affected [...] some crusting on the anterior septum. ? GAMATOR * Sanju Wesley MA - 08/26/2021 1:58 PM CST Review of Systems Lakeisha Alejandra reports the following; ear pain f/u GAMATOR documented in this encounter Plan of Treatment Not on file documented as of this encounter Visit Diagnoses Diagnosis Nasal crusting- Primary Other diseases of nasal cavity and sinuses documented in this encounter Care Teams Station Baggage Agent Relationship Specialty Start Date End Date Blake Lindsey MD [address] [place] [address] PCP - General 05/20/16 documented as of this encounter
--- OUTSIDE RECORDS SUMMARY | 2024-07-29 17:49 | XMS_ITS | Encounter Summary ---
Author Organization [facility] Health Address [address] [place] [address] Care Team Providers Care Community Affairs Director Name Role Phone Blake Lindsey MD Primary Care Provider [phone] Reason for Referral * Radiology Services (Urgent) - Closed Specialty Diagnoses / Procedures Referred By Ariel cano Referred To Contact Hematology-Oncology Diagnoses Hodgkin lymphoma, unspecified Hodgkin lymphoma type, unspecified body region (HCC) Procedures CT NECK SOFT TISSUE W CONT Ashish Peralta MD [address] DIV OF HEMATOLOGY & [place] [address] Referral ID Status Reason Start Date Expiration Date Visits Re quested Visits Authorized [id number] Closed 06/09/2022 06/09/2023 1 1 SIGHT SPECIALIST Encounter Details Date Type Department Care Team (Late st Contact Info) Description 06/09/2022 2:20 PM BOMBSIGHT SPECIALIST [facility] [address] [place] [id number] Ashish Peralta MD [address] Name DIV OF HEMATOLOGY & [place] [address] Basal cell adenocarcinoma (Primary Dx); [...] Comments Blood Pressure 122/80 06/09/2022 2:15 PM BOMBSIGHT SPECIALIST Pulse 95 06/09/2022 2:15 PM BOMBSIGHT SPECIALIST Temperature 36.6 ??C (97.8 ??F) 06/09/2022 2:15 PM CS T Respiratory Rate - - Oxygen Saturation 100% 06/09/2022 2:15 PM BOMBSIGHT SPECIALIST Inhaled Oxygen Concentration - - Weight 84.4 kg (186 lb) 06/09/2022 2:15 PM BOMBSIGHT SPECIALIST Height 158.8 cm (5' 2.5 ) 06/09/2022 2:15 PM BOMBSIGHT SPECIALIST Body Mass Index 33.48 06/09/2022 2:15 PM BOMBSIGHT SPECIALIST documented in this encounter Functional Status Functional [...] evaluation pending those results. Re: BCCs, Lakeisha's document coordinator left and so she would like a referral to U which we will make. We will stay in communication about the parotid work-up but otherwise Lakeisha can follow in 1 year with CBC/CMP. Next visit, ensure UTD with age-appropriate cancer screening. Ashish Peralta MD MSc financial compliance examiner Director of Bone Marrow Transplant and Cellular Therapy [facility] SIGHT SPECIALIST * Bertha Han MD - 06/09/2022 2:43 PM CST Images from the original note were not included. [facility] Hematology/Oncology Clinic Date: 06/09/2022 Patient Name: Lakeisha [...] [facility] Plastic surgery in [place], [place] on 12/09/2021. She was found to [...] recurrent major depressive disorder, without psychotic features ([facility]) 01/11/2019 ??? Sleep apnea ??? 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 Sleep talking 07/18/2021 ??? Suicidal ideation 07/15/2021 ??? Thrombocytopenia ([facility]) 02/16/2013 ??? TMJ (temporomandibular joint disorder) 07/11/2020 [...] fluticasone propionate (FLONASE) 50 MCG/ACT nasal spray [place] 2 sprays into each nostril once daily [...] sig reported) 22 g 1 ??? NYSTOP 171268 UNIT/GM powder Apply 1 Dose to affected [...] of scalp. We sent a referral to [facility] dermatologists as her prior document coordinator is not practicing anymore. RTC in 1 year for clinical surveillance and CBC. CMP, LDH. Will f/u on above CT Plan above was discussed with Dr. Peralta. Addendum to follow. Bertha Han MD, PGY-4 Hematology-Oncology Fellow [facility] Per [facility] SIGHT SPECIALIST Associated attestation - Ashish Peralta MD - 06/13/2022 12:57 PM BOMBSIGHT SPECIALIST I have seen and examined the patient [...] evaluation pending those results. Re: BCCs, Lakeisha's document coordinator left and so she would like a referral to U which we will make. We will stay in communication about the parotid work-up but otherwise Lakeisha can follow in 1 year with CBC/CMP. Next visit, ensure UTD with age-appropriate cancer screening. Ashish Peralta MD MSc financial compliance examiner Director of Bone Marrow Transplant and Cellular Therapy [facility] [employer] [facility] documented in this encounter Plan of Treatment Not on file documented as of this encounter Results * CT NECK SOFT TISSUE W CONT (06/18/2022 3:13 PM BOMBSIGHT SPECIALIST) Anatomical Region Laterality Modality Head Computed Tomogra phy 06/18/2022 3:25 PM BOMBSIGHT SPECIALIST Impressions 06/19/2022 1:26 PM BOMBSIGHT SPECIALIST IMPRESSION: ?? 1.Stable appearance of the 2 separate hyperdense/enhancing lesions in the superficial lobe of left parotid gland. 2.No significant cervical lymphadenopathy. > Dictated by Lisandro Burris M.D. (plant operations vice president) I, Jaja Akers MD have personally reviewed and interpreted this examination/study. > Interpreting Provider: Jaja Akers MD on 06/19/2022 1:26 PM Narrative 06/19/2022 1:26 PM BOMBSIGHT SPECIALIST PROCEDURE: ??CT NECK SOFT TISSUE W CONT, DATE/TIME OF EXAM: ??06/18/2022 3:13 PM, LOCATION ??[facility] INDICATION: C81.90: Hodgkin lymphoma, unspecified Hodgkin lymphoma [...] SPACE: Normal. PHARYNX/LARYNX/TRACHEA: Normal. RETROPHARYNGEAL SPACE: Normal. ANIMAL CARE GIVER SPACE: Normal. CAROTID SPACE: Retropharyngeal course of [...] DATE/TIME OF EXAM: :13 PM, LOCATION [facility] INDICATION: C81.90: Hodgkin lymphoma, unspecified Hodgkin lymphoma [...] SPACE: Normal. PHARYNX/LARYNX/TRACHEA: Normal. RETROPHARYNGEAL SPACE: Normal. ANIMAL CARE GIVER SPACE: Normal. CAROTID SPACE: Retropharyngeal course of [...] lymphadenopathy. > Dictated by Lisandro Burris M.D. (plant operations vice president) I, Jaja Akers MD have personally reviewed [...] (HCC) documented in this encounter Care Teams Community Affairs Director Relationship Specialty Start Date End Date Blake Lindsey MD [address] [place] [address] PCP - General 05/20/16 documented as of this encounter
--- OUTSIDE RECORDS SUMMARY | 2024-07-29 17:49 | XMS_ITS | Encounter Summary ---
Author Organization [facility] Health Address [address] [facility] [place] [address] Care Team Providers Care Behavioral Scientist Name Role Phone Blake Lindsey MD Primary [...] on filedocumented in this encounter Care Teams Behavioral Scientist Relationship Specialty Start Date End Date Blake Lindsey MD [address] [place] [address] PCP - General 05/20/16 documented as of this encounter
--- OUTSIDE RECORDS SUMMARY | 2024-07-29 17:49 | XMS_ITS | Encounter Summary ---
Author Organization [facility] Health Address [address] [facility] [place] [address] Care Team Providers Care Community Service Worker Name Role Phone Blake Lindsey MD Primary Care Provider [phone] Encounter Details Date Type Department Care Team (Late st Contact Info) Description 08/08/2021 Orders Only [facility] - Orthopedics [address] [place] [address], [place] [address] Wai Lowry MD [address] [place] [address] OF ORTHOPEDIC SURGERY [place], [place] [id number] Tear of right acetabular labrum, initial encounter [...] COVID-19? No / Unsure 08/13/2021 3:42 PM ADMISSIONS ADVISOR documented as of this encounter Functional Status [...] RIGHT 2VW OR MORE (08/13/2021 2:48 PM ADMISSIONS ADVISOR) Anatomical Region Laterality Modality Pelvis, Lower Extremity [facility] 08/13/2021 2:48 PM ADMISSIONS ADVISOR Impressions 08/13/2021 2:50 PM ADMISSIONS ADVISOR IMPRESSION: No acute findings. This report was electronically signed by CHARLIE GOODE ??on 08/13/2021 2:50 PM . Narrative 08/13/2021 2:50 PM ADMISSIONS ADVISOR EXAMINATION: XR PELVIS 1 OR 2VW, [...] encounter documented in this encounter Care Teams Community Service Worker Relationship Specialty Start Date End Date Blake Lindsey MD [address] [place] [address] PCP - General 05/20/16 documented as of this encounter
--- OUTSIDE RECORDS SUMMARY | 2024-07-29 17:49 | XMS_ITS | Encounter Summary ---
Author Organization [facility] Health Address [address] [facility] [place] [address] Care Team Providers Care Stone Gluer Name Role Phone Blake Lindsey MD Primary Care Provider [phone] Reason for Visit * Reason Comments Pain [...] CDT - 01/11/2022 6:27 PM CDT Emergency [facility] [address] [place] [id number] Dorsalgia, unspecified Discharge Disposition: Left Against Medical [...] bilateral nares 22 g 1 03/17/2021 NYSTOP 409151 UNIT/GM powder Apply 1 Dose to affected [...] fluticasone propionate (FLONASE) 50 MCG/ACT nasal spray [place] 2 sprays into each nostril once daily [...] RN) documented in this encounter Care Teams Stone Gluer Relationship Specialty Start Date End Date Blake Lindsey MD [address] [place] [address] PCP - General 05/20/16 documented as of this encounter
--- OUTSIDE RECORDS SUMMARY | 2024-07-29 17:49 | XMS_ITS | Encounter Summary ---
Author Organization [facility] Health Address [address] [place] [address] Care Team Providers Care Photoengraving Photographer Name Role Phone Blake Lindsey MD Primary Care Provider [phone] Encounter Details Date Type Department Care Team [...] on filedocumented in this encounter Care Teams Photoengraving Photographer Relationship Specialty Start Date End Date Blake Lindsey MD [address] [place] [address] PCP - General 05/20/16 documented as of this encounter
--- OUTSIDE RECORDS SUMMARY | 2024-07-29 17:49 | XMS_ITS | Encounter Summary ---
Author Organization [facility] Health Address [address] [facility] [place] [address] Care Team Providers Care Teachers' Assistant Name Role Phone Blake Lindsey MD Primary Care Provider [phone] Reason for Visit * Reason Comments Lesions Encounter Details Date Type Department Care Team (Late st Contact Info) Description 05/12/2024 3:10 PM CDT Office Visit [facility] - Dermatology [address] [place] [address], [facility] [place] [address] Jaun Mascorro MD [address] [place] [address] [address] [place] [address] History of basal cell carcinoma (BCC) (Primary [...] by pt) L parietal scalp exc plastics ([facility] Plastic surg) January 2022 Has hx actinic [...] parietal scalp, 01/2022, removed by plastic surgeon ([facility] Plastic surgery) Physical exam: Skin exam was [...] Dr. Mascorro. Billing Guide Mera Vitale MD [facility] Dermatology Resident documented in this encounter Procedure Notes * Mera Vitale MD - 05/12/2024 4:34 PM CDTAssociated Order(s): PROC BIOPSY OF SKIN LESION Procedure(s): SD TANGNTL BX SKIN SINGLE LES Pre-Procedure Diagnose(s): [...] and sent to dermatopathology. Mera Vitale MD [facility] Dermatology Resident Associated attestation - Jaun Mascorro [...] DESTRUCT BENIGN LESION NOT SKIN TAG Procedure(s): SD DESTRUCT BENIGN LESION, 1-14 Pre-Procedure Diagnose(s): Inflamed seborrheic keratosis Diagnosis and treatment options discussed. Cryotherapy (Liquid Nitrogen) to 3 ISK x 10 seconds each. Number of cycles: 1. Wound care reviewed. Mera Vitale MD [facility] Dermatology Resident Associated attestation - Jaun Mascorro [...] Name Priority Date/Time Associated Diagnosis Comments SD TANGNTL BX SKIN SINGLE LES Routine 05/12/2024 4:34 PM CDT Neoplasm of uncertain behavior of skin SD DESTRUCT BENIGN LESION, 1-14 Routine 05/12/2024 4:33 PM CDT Inflamed seborrheic keratosis DERMATOPATHOLOGY Routine 05/12/2024 12:0 0 AM CDT Neoplasm of uncertain behavior of skin documented in this encounter Results * SD TANGNTL BX SKIN SINGLE LES (05/12/2024 4:34 [...] and sent to dermatopathology. Mera Vitale MD [facility] Dermatology Resident Jaun Mascorro MD PROCEDURE/MINOR SURG ICAL ORDERABLES * SD DESTRUCT BENIGN LESION, 1-14 (05/12/2024 4:33 PM CDT) Narrative Jaun Mascorro MD - 05/12/2024 4:33 PM CDT Mera Vitale MD ? 05/12/2024 ??4:33 PM Diagnosis and treatment options discussed. Cryotherapy (Liquid Nitrogen) to 3 ISK x 10 seconds each. Number of cycles: 1. Wound care reviewed. Mera Vitale MD [facility] Dermatology Resident Jaun Mascorro MD PROCEDURE/MINOR SURG ICAL ORDERABLES * DERMATOPATHOLOGY (05/12/2024 12:00 AM CDT) Case Report Dermatopathology Report ? Case: [id number] ? Authorizing Provider: ??Jaun Mascorro MD ? Collected: ? 05/12/2024 12:00 AM ? Ordering Location: ? [facility] - ??Received: ?05/15/2024 06:42 AM [...] specimen consists of a shave biopsy measuring [id number] mm. Jar 0. 4:29 PM CDT DERMATOPATHOLOGY [...] by the Dermatopathology Laboratory at [facility], directed by Dr. Buddy Fisher. These tests need not be, and therefore are not, approved by the [place] Food and Drug Administration. The tests are used for clinical purposes. Billing Codes Specimen Charges Stain Charges 83555 1 4:29 PM CDT DERMATOPATHOLOGY LABORATORY Embedded Images 4:29 PM CDT DERMATOPATHOLOGY LABORATORY Pathology/Cytolog y TISSUE SPECIMEN FROM SKIN / Unknown 05/12/2024 05/15/2024 6:42 AM CDT Jaun Mascorro MD LAB - PATHOLOGY/CYTO LOGY ORDERABLES DERMATOPATHOLOGY LABORATORY [facility] - Department of Dermatology [address], [address] [phone] documented in this encounter Visit Diagnoses Diagnosis History of basal cell carcinoma (BCC)- Primary Seborrheic keratosis Neoplasm of uncertain behavior of skin Lentigines Other dyschromia Donahue angioma Nevus, non-neoplastic Inflamed seborrheic keratosis Sebaceous hyperplasia Other specified disease of sebaceous glands documented in this encounter Care Teams Teachers' Assistant Relationship Specialty Start Date End Date Blake Lindsey MD [address] [place] [address] PCP - General 05/20/16 documented as of this encounter
--- OUTSIDE RECORDS SUMMARY | 2024-07-29 17:49 | XMS_ITS | Encounter Summary ---
Author Organization [facility] Health Address [address] [place] [address] Care Team Providers Care Marina Dry Dock Manager Name Role Phone Blake Lindsey MD Primary Care Provider [phone] Encounter Details Date Type Department Care Team (Late st Contact Info) Description 01/27/2022 Orders Only [facility] [address] [place] [address] Abhilash Roca MD [address] [address] Parotid nodule ; Hodgkin lymphoma, [...] (HCC) documented in this encounter Care Teams Marina Dry Dock Manager Relationship Specialty Start Date End Date Blake Lindsey MD [address] [place] [address] PCP - General 05/20/16 documented as of this encounter
--- OUTSIDE RECORDS SUMMARY | 2024-07-29 17:49 | XMS_ITS | Encounter Summary ---
Author Organization [facility] Health Address [address] [facility] [place] [address] Care Team Providers Care Senior Chemical Process Engineer Name Role Phone Blake Lindsey MD Primary Care Provider [phone] Reason for Visit * Reason Onset Date Comments Pain Hand Pain Hand 10/07/2022 Encounter Details Date Type Department Care Team (Late st Contact Info) Description 10/07/2022 9:00 AM TABLE ASSEMBLER Office Visit [facility] - Orthopedics [address] [facility], [facility] [place] [address] Jennifer Dia, PADishaC [address] [place] [phone] CMC arthritis (Primary Dx); Trigger finger [...] Shannan Duke RN - 10/07/2022 9:35 AM TABLE ASSEMBLER Today you received a steroid (or cortisone) [...] day, for any soreness after the injection. E ASSEMBLER documented in this encounter Progress Notes * Jennifer Dia PA-C - 10/07/2022 9:41 AM CST ORTHOPEDIC SURGERY / HAND SURGERY / MICROSURGERY OUTPATIENT CLINICAL OFFICE VISIT Lakeisha Alejandra 51 year old female CSN: [id number] Date of service: 10/07/2022 Chief Complaint BILATERAL [...] injections or bracing. 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 Nurtec 75 MG tablet ??? NYSTOP [id number] UNIT/GM powder ??? omeprazole (PRILOSEC) 20 MG [...] at follow up: No Jennifer Dia PA-C [facility] Orthopaedic Surgery Collaborative Practice with Dr. Venancio De and Dr. Del Chisholm 10/07/2022 9:41 AM E ASSEMBLER * Shannan Duke RN - 10/07/2022 9:15 AM CST Pt presents with B thumb pain and R wrist pain with lifting Pt pain 03/11 E ASSEMBLER documented in this encounter Procedure Notes [...] bandage. The patient tolerated the procedure well. E ASSEMBLER documented in this encounter Plan of [...] at 1000 $ Given 10/07/2022 9:50 AM TABLE ASSEMBLER 0.5 mL Finger Right Hand lidocaine HCl (PF) (Xylocaine MPF) 2 % injection Infiltration, ONCE, 1 dose, On Wed10/07/22 at 1000 $ Given 10/07/2022 9:49 AM TABLE ASSEMBLER 0.5 mL Finger Left Hand lidocaine HCl (PF) (Xylocaine MPF) 2 % injection Infiltration, ONCE, 1 dose, On Wed10/07/22 at 1000 $ Given 10/07/2022 9:49 AM TABLE ASSEMBLER 0.5 mL Finger Left Hand triamcinolone acetonide (Kenalog-40) injection 20 mg 20 mg, Intra-Tendon Sheath , ONCE, 1 dose, On Wed10/07/22 at 1000, Shake well before using. $ Given 10/07/2022 9:51 AM TABLE ASSEMBLER 20 mg Finger Right Hand triamcinolone acetonide (Kenalog-40) injection 20 mg 20 mg, Intra-Tendon Sheath , ONCE, 1 dose, On Wed10/07/22 at 1000, Shake well before using. $ Given 10/07/2022 9:50 AM TABLE ASSEMBLER 20 mg Finger Left Hand triamcinolone acetonide (Kenalog-40) injection 20 mg 20 mg, Intra-Tendon Sheath , ONCE, 1 dose, On Wed10/07/22 at 1000, Shake well before using. $ Given 10/07/2022 9:50 AM TABLE ASSEMBLER 20 mg Finger Left Hand documented in this encounter Care Teams Senior Chemical Process Engineer Relationship Specialty Start Date End Date Blake Lindsey MD [address] [place] [address] PCP - General 05/20/16 documented as of this encounter
--- OUTSIDE RECORDS SUMMARY | 2024-07-29 17:49 | XMS_ITS | Encounter Summary ---
Author Organization [facility] Health Address [address] [place] [address] Care Team Providers Care Flight Line Mechanic Name Role Phone Blake Lindsey MD Primary Care Provider [phone] Reason for Referral * Consultation (Routine) - Closed Specialty Diagnoses / Procedures Referred By Ariel cano Referred To Contact Dermatology Diagnoses Basal cell carcinoma (BCC) of scalp Abhilash Roca MD [address] [address] Domingo Apodaca MD [address] [facility] 3 [place] [address] Referral ID Status Reason Start Date Expiration Date V isits Requested Visits Authorized [id number] Closed Specialty Services Required 01/27/2022 01/27/2023 1 1 Encounter Details Date Type Department Care Team (Late st Contact Info) Description 01/27/2022 9:45 AM CDT Office Visit [facility] Hematology and Oncology[address] [phone] Abhilash Roca MD [address] [address] Basal cell carcinoma (BCC) of [...] MD - 01/27/2022 3:22 PM CDT [facility] Hematology/Oncology Clinic Date: 01/27/2022 Patient Name: Lakeisha Alejandra Date of : 1970 Roofer Assistant/Oncologist: Abhilash Roca MD Primary Care Provider: Blake Lindsey MD Summary and Interval History: Lakeisha Alejandra is a 51 year old female with a new onset of 0.5 cm basal cell carcinoma of skin on the of scalp detected by her plastic surgeon at [facility] surgery in [place], [place] on 12/09/2021. She was found to [...] fluticasone propionate (FLONASE) 50 MCG/ACT nasal spray [place] 2 sprays into each nostril once daily [...] on 08/26/2021) 22 g 1 ??? NYSTOP [id number] UNIT/GM powder Apply 1 Dose to affected [...] doesn't have insurance to go back to [facility] plastic Surgery in [place], [place]. RTC in 1 year for labs and clinical surveillance with CBC, CMP. Abhilash Roca MD Oncology/hematology documented in this encounter Plan of Treatment Scheduled Referrals Name Type Priority Associated Diagnoses Orde r Schedule Ref to [facility] Apodaca - [facility] Outpatient Referral Routine Basal cell carcinoma (BCC) of scalp Ordered: 01/27/2022 documented as of this encounter Results * (ABNORMAL) COMPREHENSIVE METABOLIC PANEL (01/27/2022 10:27 AM [facility]) BUN 10 7 - 26 mg/dL 01/27/2022 11:[address] [facility] Creatinine 0.69 0.56 - 0.96 mg/dL 01/27/2022 11:[address] [facility] Sodium 145 136 - 145 mmol/L 01/27/2022 11:[address] [facility] Potassium 3.3(L) 3.5 - 4.5 mmol/L 01/27/2022 11:[address] [facility] Chloride 110(H) 98 - 107 mmol/L 01/27/2022 11:[address] [facility] CO2 24 22 - 29 mmol/L 01/27/2022 11:[address] [facility] Glucose 131(H) 70 - 115 mg/dL 01/27/2022 11:[address] [facility] Calcium 9.8 8.4 - 10.2 mg/dL 01/27/2022 11:[address] [facility] Protein Total 7.3 6.0 - 8.3 g/dL 01/27/2022 11:[address] [facility] Albumin 3.8 3.4 - 5.0 g/dL 01/27/2022 11:[address] [facility] Bilirubin Total 0.5 0.2 - 1.2 mg/dL 01/27/2022 11:[address] [facility] Alkaline Phosphatase 84 40 - 150 U/L 01/27/2022 11:[address] [facility] ALT 13 5 - 55 U/L 01/27/2022 11:[address] [facility] AST 11 5 - 34 U/L 01/27/2022 11:[address] [facility] Anion Gap 14 8 - 18 01/27/2022 11:[address] [facility] BUN/Creatinine Ratio 14 7 - 23 01/27/2022 11:[address] [facility] Osmolality Calculated 301(H) 270 - 300 mOsm/kg 01/27/2022 11:[address] [facility] Albumin/Globulin Ratio 1.1 1.1 - 2.3 01/27/2022 11:[address] [facility] eGFR by CKD-EPI >90 >=90 mL/min/1.7 3 m2 01/27/2022 11:[address] [facility] Blood BLOOD SPECIMEN / Unknown Lab Venipuncture / Unknown 01/27/2022 10:27 AM CDT 01/27/2022 10:35 AM CDT [facility] - DOOR OPENER RY ORDERABLES [facility] [address] [place] [phone], [facility] [phone] * (ABNORMAL) CBC WITH DIFFERENTIAL (01/27/2022 10:27 AM T) WBC 7.1 3.5 - 10.5 10? 3 /uL 01/27/2022 10:[address] [facility] RBC 4.46 3.80 - 5.20 10? 6 /uL 01/27/2022 10:[address] [facility] Hemoglobin 14.3 12.0 - 15.6 g/dL 01/27/2022 10:[address] [facility] Hematocrit 42.2 35.0 - 45.0 % 01/27/2022 10:[address] [facility] MCV 94.6 80.7 - 98.3 fL 01/27/2022 10:[address] [facility] MCH 32.1 26.7 - 34.0 pg 01/27/2022 10:[address] [facility] MCHC 33.9 30.8 - 35.9 g/dL 01/27/2022 10:[address] [facility] Platelet Count 209 150 - 400 10? 3 /uL 01/27/2022 10:[address] [facility] RDW-SD 43.3 36.0 - 50.0 fL 01/27/2022 10:[address] [facility] RDW-CV 12.5 11.2 - 14.8 % 01/27/2022 10:[address] [facility] MPV 9.0(L) 9.4 - 12.9 fL 01/27/2022 10:[address] [facility] nRBC Absolute 0.00 0 10? 3 /uL 01/27/2022 10:[address] [facility] nRBC Auto 0.0 0 /100 WBC 01/27/2022 10:[address] [facility] Neutrophils % 65.9 35.0 - 70.0 % 01/27/2022 10:[address] [facility] Lymphocytes % 23.2 20.0 - 43.0 % 01/27/2022 10:[address] [facility] Monocytes % 6.3 5.0 - 13.0 % 01/27/2022 10:[address] [facility] Eosinophils % 3.7 0.0 - 6.0 % 01/27/2022 10:[address] [facility] Basophil % 0.6 0.0 - 2.0 % 01/27/2022 10:[address] [facility] Neutrophils Absolute 4.70 1.60 - 7.00 10? 3 /uL 01/27/2022 10:[address] [facility] Lymphocyte Absolute 1.65 1.10 - 3.90 10? 3 /uL 01/27/2022 10:[address] [facility] Monocytes Absolute 0.45 0.26 - 1.07 10? 3 /uL 01/27/2022 10:[address] [facility] Eosinophils Absolute 0.26 0.00 - 0.47 10? 3 /uL 01/27/2022 10:[address] [facility] Basophils Absolute 0.04 0.00 - 0.08 10? 3 /uL 01/27/2022 10:[address] [facility] Immature Granulocytes % 0.3 0.0 - 1.0 % 01/27/2022 10:[address] [facility] Immature Granulocytes Absolute 0.02 01/27/2022 10:[address] [facility] Blood BLOOD SPECIMEN / Unknown Lab Venipuncture / Unknown 01/27/2022 10:27 AM CDT 01/27/2022 10:35 AM CDT [facility] - HEMATOL OGY ORDERABLES [address] [address], [facility] [phone] documented in this encounter Visit Diagnoses Diagnosis Basal cell carcinoma (BCC) of scalp- Primary documented in this encounter Care Teams Flight Line Mechanic Relationship Specialty Start Date End Date Blake Lindsey MD [address] [place] [address] PCP - General 05/20/16 documented as of this encounter
--- OUTSIDE RECORDS SUMMARY | 2024-07-29 17:49 | XMS_ITS | Encounter Summary ---
Author Organization [facility] Health Address [address] [place] [address] Care Team Providers Care Carding Utility Tender Name Role Phone Blake Lindsey MD Primary Care Provider [phone] Reason for Referral * Procedure (Routine) - Closed Specialty Diagnoses / Procedures Referred By Contac t Referred To Contact Pulmonary Disease Diagnoses Abnormal CT of the chest Procedures SIX MINUTE WALK Don Manuel MD [address] [facility] 2L DIV OF PULMONARY/[place] [address] [facility] [address] [place] [address] Referral ID Status Reason Start Date Expiration Date Visits Re quested Visits Authorized [id number] Closed 04/11/2024 04/11/2025 1 1 * Procedure (Routine) - Closed Specialty Diagnoses / Procedures Referred By Contac t Referred To Contact Pulmonary Disease Diagnoses Abnormal CT of the chest Procedures COMPLETE PFT W/WO BRONCHODILATOR Don Manuel MD [address] [facility] 2L DIV OF PULMONARY/[place] [address] [facility] [address] [place] [address] Referral ID Status Reason Start Date Expiration Date Visits Re quested Visits Authorized [id number] Closed 04/11/2024 04/11/2025 1 1 Reason for Visit * Procedure (Routine) - Closed Specialty Diagnoses / Procedures Referred By Contac t Referred To Contact Pulmonary Disease Diagnoses Abnormal CT of the chest Procedures COMPLETE PFT W/WO BRONCHODILATOR Don Manuel MD [address] [facility] 2L DIV OF PULMONARY/[place] [address] [facility] [address] [place] [address] Referral ID Status Reason Start Date Expiration Date Visits Re quested Visits Authorized [id number] Closed 04/11/2024 04/11/2025 1 1 Encounter Details Date Type Department Care Team (Latest Contact Info) Description 05/22/2024 8:00 AM CDT - 05/22/2024 9:54 AM CDT Hospital Encounter [facility] PFT [address] [place] [phone] Don Manuel MD [address] [facility] 2L DIV OF PULMONARY/[place] [address] Discharge Disposition: Home or Self Care Social [...] mg by mouth as directed 07/14/2022 NYSTOP 464359 UNIT/GM powder Apply 1 Dose to affected [...] Hunter MD - 05/22/2024 12:11 PM CDT [facility] DEPARTMENT OF PULMONARY, CRITICAL CARE, [...] Pulmonary, Critical Care, and Sleep Medicine [facility] [employer] [facility] I have personally reviewed and agree with the fellow's interpretation. Tunrer Hunter MD Narrative Turner Hunter MD - 05/22/2024 12:11 PM CDT Dar Sheriff MD ? 05/22/2024 ??9:26 PM Don Manuel MD RESPIRATORY THERAPY ORDERABLES * SIX MINUTE WALK (05/22/2024 12:10 PM CDT) Impressions Turner Hunter MD - 05/22/2024 12:10 PM CDT [facility] DEPARTMENT OF PULMONARY, CRITICAL CARE, AND [...] MD Pulmonary and Critical Care Fellow [facility] Pager Number [phone] I have personally reviewed and agree with the fellow's interpretation. Turner Hunter MD Narrative Turner Hunter MD - 05/22/2024 12:10 PM CDT Dar Sheriff MD ? 05/22/2024 ??9:26 PM Don Manuel MD RESPIRATORY THERAPY ORDERABLES * COMPLETE PFT W/WO BRONCHODILATOR (05/22/2024 12:09 PM CDT) Impressions Turner Hunter MD - 05/22/2024 12:09 PM CDT [facility] DEPARTMENT OF PULMONARY, CRITICAL CARE, AND [...] of Pulmonary, Critical Care, and Sleep Medicine [facility] I have personally reviewed and agree with [...] organs documented in this encounter Care Teams Carding Utility Tender Relationship Specialty Start Date End Date Blake Lindsey MD [address] [place] [phone] PCP - General 05/20/16 documented as of this encounter
--- OUTSIDE RECORDS SUMMARY | 2024-07-29 17:49 | XMS_ITS | Encounter Summary ---
Author Organization [facility] Health Address [address] [facility] [place] [address] Care Team Providers Care Social Media Sr Strategy Manager Name Role Phone Blake Lindsey MD Primary Care Provider [phone] Encounter Details Date Type Department Care Team (Late st Contact Info) Description 01/23/2024 Orders Only [facility] - Hematology/Oncology [address] [place] [address] Ashish Carrasco MD [address] [facility] [place] [address] Hodgkin lymphoma, unspecified Hodgkin lymphoma [...] Primary documented in this encounter Care Teams Social Media Sr Strategy Manager Relationship Specialty Start Date End Date Blake Lindsey MD [address] [place] [address] PCP - General 05/20/16 documented as of this encounter
--- OUTSIDE RECORDS SUMMARY | 2024-07-29 17:49 | XMS_ITS | Encounter Summary ---
Author Organization [facility] Health Address [address] [facility] [place] [address] Care Team Providers Care Rn Night Name Role Phone Blake Lindsey MD Primary Care Provider [phone] Encounter Details Date Type Department Care Team (Latest Contact Info) Description 10/07/2022 9:04 AM AUTOMATIC SERGING MACHINE OPERATOR - 10/07/2022 11:59 PM [facility] Hospital Encounter [facility] [address] [facility] [facility] [place] [address] Jennifer Dia, PADishaC [address] [place] [phone] Discharge Disposition: Home or Self Care Social [...] mg by mouth as directed 07/14/2022 NYSTOP [id number] UNIT/GM powder Apply 1 Dose to affected [...] 3VW OR MORE Routine 10/07/2022 9:09 AM AUTOMATIC SERGING MACHINE OPERATOR Bilateral hand pain documented in this encounter Results * XR HAND RIGHT 3VW OR MORE (10/07/2022 9:09 AM AUTOMATIC SERGING MACHINE OPERATOR) Anatomical Region Laterality Modality Wrist / Hand Radiographic Jonna ging 10/07/2022 9:56 AM AUTOMATIC SERGING MACHINE OPERATOR Impressions 10/07/2022 9:59 AM AUTOMATIC SERGING MACHINE OPERATOR IMPRESSION: Minimal degenerative changes. > Interpreting Provider: Emil Malone MD on 10/07/2022 9:59 AM Narrative 10/07/2022 9:59 AM AUTOMATIC SERGING MACHINE OPERATOR PROCEDURE: ??XR HAND LEFT 3VW OR MORE, XR HAND RIGHT 3VW OR MORE, DATE/TIME OF EXAM: ??10/07/2022 9:10 AM, LOCATION ??[facility] INDICATION: M79.641: Bilateral hand pain M79.642: Bilateral [...] MORE,DATE/TIME OF EXAM: 10/07/2022 9:10 AM, LOCATION [facility] INDICATION: M79.641: Bilateral hand pain M79.642: Bilateral [...] limb documented in this encounter Care Teams Rn Night Relationship Specialty Start Date End Date Blake Lindsey MD [address] [place] [address] PCP - General 05/20/16 documented as of this encounter
--- OUTSIDE RECORDS SUMMARY | 2024-07-29 17:49 | XMS_ITS | Encounter Summary ---
Author Organization [facility] Health Address [address] [facility] [place] [address] Care Team Providers Care Rn Testing Name Role Phone Blake Lindsey MD Primary Care Provider [phone] Encounter Details Date Type Department Care Team [...] filedocumented in this encounter Care Teams Rn Testing Relationship Specialty Start Date End Date Blake Lindsey MD [address] [place] [address] PCP - General 05/20/16 documented as of this encounter
--- OUTSIDE RECORDS SUMMARY | 2024-07-29 17:49 | XMS_ITS | Encounter Summary ---
Author Organization [facility] Address [address] [facility] [place] [address] Care Team Providers Care Switchboard Wirer Name Role Phone Blake Lindsey MD Primary Care Provider [phone] Reason for Visit * Reason Comments Lesions New patient, lesions on scalp and arms Full Body Skin Examination Encounter Details Date Type Department Care Team (Late Contact [facility]) Description 10/02/2022 12:50 PM LIGHT ADJUSTER Office Visit [facility] [address] [place] [address], [place] [address] Jaun Mascorro MD [address] [place] [address] [address] [place] [address] Neoplasm of uncertain behavior of skin (Primary [...] Héctor Swenson MD - 10/02/2022 12:33 PM LIGHT ADJUSTER Follow up in 6 months for full [...] whichever one you will wear every day! T ADJUSTER documented in this encounter Progress Notes * [...] scalp detected by her plastic surgeon at [facility]astic surgery in [place], [place] on 12/09/2021. Personal history of skin cancer: - BCC (reported by pt) L parietal scalp, 01/2022, removed by plastic surgeon ([facility] Plastic surgery) Allergies and medications were [...] different appearance from others unless otherwise noted -[place] to thompson/brown waxy/hyperkeratotic stuck on papules on [...] Screen hand out provided (in AVS) - [id number] fbse for two years since last NMSC [...] Highest level of risk: Low Suggested code: 12973 Patient examined and discussed with attending physician Héctor Swenson MD [facility] Dermatology Resident, PGY2 T ADJUSTER * Jaun Mascorro MD - 10/02/2022 12:20 [...] by pt) L parietal scalp [facility] January 2022 [place] face cryo [...] symptomatic RTC 1 year Jaun Mascorro MD T ADJUSTER documented in this encounter Procedure Notes * Héctor Swenson MD - 10/02/2022 1:47 PM CSTAssociated Order(s): PROC BIOPSY OF SKIN LESION Procedure(s): MO TANGNTL BX SKIN SINGLE LES Pre-Procedure Diagnose(s): Neoplasm of uncertain behavior of skin Risks, benefits and alternatives to shave biopsy were discussed with the patient. Verbal consent obtained. Location: L back Skin prep: Alcohol Anesthesia: Sensorcaine/bupivacaine with epinephrine Hemostasis: Aluminum Chloride Dressing and wound care discussed. Patient agrees to phone call for results and message if not available. Héctor Swenson MD [facility] Dermatology Resident, PGY-2 T ADJUSTER Associated attestation - Jaun Mascorro MD - 10/04/2022 2:47 PM LIGHT ADJUSTER A procedure was performed. I was present for the pollard and critical portions of any procedures performed and was readily, immediately available for the remainder of the procedure at all times. Jaun Mascorro MD documented in this encounter Plan of Treatment Not on file documented as of this encounter Procedures Procedure Name Priority Date/Time Associated Diagnosis Comments MO TANGNTL BX SKIN SINGLE LES Routine 10/02/2022 1:47 PM LIGHT ADJUSTER Neoplasm of uncertain behavior of skin DERMATOPATHOLOGY Routine 10/02/2022 3:33 AM LIGHT ADJUSTER Neoplasm of uncertain behavior of skin documented in this encounter Results * MO TANGNTL BX SKIN SINGLE LES (10/02/2022 1:47 PM LIGHT ADJUSTER) Narrative Jaun Mascorro MD - 10/02/2022 1:47 PM LIGHT ADJUSTER Héctor Swenson MD ? 10/02/2022 ??1:48 PM Risks, benefits and alternatives to shave biopsy were discussed with the patient. Verbal consent obtained. Location: L back Skin prep: Alcohol Anesthesia: ??Sensorcaine/bupivacaine with epinephrine Hemostasis: Aluminum Chloride Dressing and wound care discussed. Patient agrees to phone call for results and message if not available. Héctor Swenson MD [facility] Dermatology Resident, PGY-2 Jaun Mascorro MD PROCEDURE/MINOR SURG ICAL ORDERABLES * DERMATOPATHOLOGY (10/02/2022 3:33 AM LIGHT ADJUSTER) Case Report Dermatopathology Report ? Case: [id number] ? Authorizing Provider: ??Jaun Mascorro MD ? Collected: ? 10/02/2022 03:33 AM ? Ordering Location: ? [facility] ?Received: ?10/05/2022 06:01 AM ? Dermatology ? Pathologist: ? Fabienne Fisher MD ? Specimen: ?Skin, left back ? 3 6:30 PM LIGHT ADJUSTER DERMATOPATHOLOGY LABORATORY Final Diagnosis Specimen A. SKIN, left back: COMBINED NEVUS (BANAL & BLUE) (D22.9) 3 6:30 PM LIGHT ADJUSTER DERMATOPATHOLOGY LABORATORY Clinical History Dysplastic nevus vs intradermal nevus; r/o melanoma 3 6:30 PM [facility] DERMATOPATHOLOGY LABORATORY Gross Description Specimen A: Received is one formalin filled container labeled with the patient's name and designated left back. The specimen consists of a shave biopsy measuring 10x7x2 mm. Jar 0. 3 6:30 PM [facility] DERMATOPATHOLOGY LABORATORY Microscopic Description Specimen A. SKIN, left back: Within the dermis, there are oval and dendritic shaped melanocytes and melanophages. There are also nests of round and oval melanocytes. 3 6:30 PM [facility] DERMATOPATHOLOGY LABORATORY Disclaimer An external and internal positive and negative controls are appropriate for the histochemical, immunohistochemical and immunofluorescence stain(s) in this case (if any), except where stated explicitly. The performance characteristics of the stain(s) cited in this report were developed and its performance characteristic determined by the Dermatopathology Laboratory at [facility], directed by Dr. Buddy Fisher. These tests need not be, and therefore are not, approved by the [place] Food and Drug Administration. The tests are used for clinical purposes. Billing Codes Specimen Charges Stain Charges 96085 1 3 6:30 PM [facility] DERMATOPATHOLOGY LABORATORY Embedded Images 3 6:30 PM [facility] DERMATOPATHOLOGY LABORATORY Pathology/Cytolo gy TISSUE SPECIMEN FROM SKIN / Unknown 10/02/2022 3:33 AM LIGHT ADJUSTER 10/05/2022 6:01 AM LIGHT ADJUSTER Jaun Mascorro MD LAB - PATHOLOGY/CYTO LOGY ORDERABLES DERMATOPATHOLOGY LABORATORY [facility] - Department of Dermatology [facility] Medicine [address] [place] [address], [address] [phone] documented in this encounter Visit Diagnoses Diagnosis Neoplasm of uncertain behavior of skin- Primary History of basal cell carcinoma (BCC) Multiple benign melanocytic nevi of upper and lower extremities and trunk Lentigines Other dyschromia Seborrheic keratosis Donahue angioma Nevus, non-neoplastic Hammer toes of both feet Bunion Scar Scar condition and fibrosis of skin documented in this encounter Care Teams Switchboard Wirer Relationship Specialty Start Date End Date Blake Lindsey MD [address] [place] [address] PCP - General 05/20/16 documented as of this encounter
--- OUTSIDE RECORDS SUMMARY | 2024-07-29 17:49 | XMS_ITS | Encounter Summary ---
Author Organization [facility] Health Address [address] [place] [address] Care Team Providers Care Oceanographer Physical Name Role Phone Blake Lindsey MD Primary Care Provider [phone] Encounter Details Date Type Department Care Team (Late st Contact Info) Description 08/13/2021 3:43 PM ANODIZER - 08/13/2021 11:59 PM [facility] Hospital Encounter [facility] LAB OP DRAW STATION [address] [place] [address] Wai Lowry MD [facility]5 [facility] [place] [address] Discharge Disposition: Home or Self Care Social [...] COVID-19? No / Unsure 08/13/2021 3:42 PM ANODIZER documented as of this encounter Functional Status [...] bilateral nares 22 g 1 03/17/2021 NYSTOP 811536 UNIT/GM powder Apply 1 Dose to affected [...] fluticasone propionate (FLONASE) 50 MCG/ACT nasal spray [place] 2 sprays into each nostril once daily [...] Diagnosis Comments TRANSFERRIN Routine 08/13/2021 3:48 PM ANODIZER Chronic, continuous use of opioids IRON BLOOD Routine 08/13/2021 3:48 PM ANODIZER Chronic, continuous use of opioids METHYLMALONIC ACID BLOOD Routine 08/13/2021 3:47 PM ANODIZER Vitamin B12 deficiency VITAMIN D 25-HYDROXY Routine 08/13/2021 3:47 PM ANODIZER Vitamin D deficiency VITAMIN B12 Routine 08/13/2021 3:47 PM ANODIZER Vitamin B12 deficiency FERRITIN Routine 08/13/2021 3:47 PM ANODIZER Iron deficiency anemia, unspecified iron deficiency anemia type documented in this encounter Results * TRANSFERRIN (08/13/2021 3:48 PM ANODIZER) Transferrin 314 174 - 382 mg/dL 08/13/2021 4:39 PM ANODIZER [facility] Blood BLOOD SPECIMEN / Unknown Lab Venipuncture / Unknown 08/13/2021 3:48 PM ANODIZER 08/13/2021 4:16 PM ANODIZER Lowell Pop MD LAB - CHEMISTRY ORD ERABLES Performing Organization Address [facility]/State/[facility] Co de Phone Number [address] [address], [facility] [phone] * IRON BLOOD (08/13/2021 3:48 PM ANODIZER) Iron 127 40 - 150 ug/dL 08/13/2021 4:39 PM ANODIZER [facility] Blood BLOOD SPECIMEN / Unknown Lab Venipuncture / Unknown 08/13/2021 3:48 PM ANODIZER 08/13/2021 4:16 PM ANODIZER Lowell Pop MD LAB - CHEMISTRY ORD ERABLES Performing Organization Address City/[facility]/ZIP Co de Phone Number [facility] LABORATORY [facility] [address] [place] [address], [place] [phone] * METHYLMALONIC ACID BLOOD (08/13/2021 3:47 PM ANODIZER) Pathologist [facility] Methylmalonic Acid 0.15 0.00 - 0.40 umol/L 08/17/2021 1:08 PM ANODIZER [facility] ([facility]) Comment: INTERPRETIVE INFORMATION: MMA Serum/Plasma, ?Vitamin B12 Status This test was developed and its performance characteristics determined by [facility]. It has not been cleared or approved by the [place] Food and Drug Administration. This test was performed in a CLIA certified laboratory and is intended for clinical purposes. Performed By: [facility] [address] [place] [address] Rn Correctional: Karol Bowen MD Blood BLOOD SPECIMEN / Unknown Lab Venipuncture / Unknown 08/13/2021 3:47 PM ANODIZER 08/13/2021 4:16 PM ANODIZER Lowell Pop MD LAB - CHEMISTRY ORD ERABLES Performing Organization Address [facility]/ZIP Co de Phone Number [facility] ([facility]) [address] [place], [place] [id number] [place] [address] * (ABNORMAL) VITAMIN B12 (08/13/2021 3:47 PM ANODIZER) Pathologist [facility] Vitamin B12 989(H) 213 - 816 pg/mL 08/13/2021 5:03 PM ANODIZER [facility] Blood BLOOD SPECIMEN / Unknown Lab Venipuncture / Unknown 08/13/2021 3:47 PM ANODIZER 08/13/2021 4:14 PM ANODIZER Lowell Pop MD LAB - CHEMISTRY ORD ERABLES Performing Organization Address City/[facility]/ZIP Co de Phone Number [facility] [address] [place] [address], [place] [phone] * VITAMIN D 25-HYDROXY (08/13/2021 3:47 PM ANODIZER) Vitamin D, 25 Hydroxy 31.0 30.0 - 80.0 ng/mL 08/13/2021 5:03 PM ANODIZER [facility] Comment: The recommendations for 25-Hydroxy Vitamin [...] Lab Venipuncture / Unknown 08/13/2021 3:47 PM ANODIZER 08/13/2021 4:14 PM ANODIZER Lowell Pop MD LAB - CHEMISTRY ORD ERABLES Performing Organization Address [facility] Co de Phone Number [facility] [address] [place] [phone], [facility] [phone] * FERRITIN (08/13/2021 3:47 PM ANODIZER) [facility] Ferritin 39 13 - 204 ng/mL 08/13/2021 4:57 PM ANODIZER [facility] Blood BLOOD SPECIMEN / Unknown Lab Venipuncture / Unknown 08/13/2021 3:47 PM ANODIZER 08/13/2021 4:16 PM ANODIZER Lowell Pop MD LAB - CHEMISTRY ORD ERABLES [facility] [address] [place] [address], [facility] [phone] documented in this encounter Visit Diagnoses Diagnosis Chronic, continuous use of opioids- Primary Opioid type dependence, continuous Iron deficiency anemia, unspecified iron deficiency anemia type Vitamin D deficiency Vitamin B12 deficiency Other B-complex deficiencies documented in this encounter Care Teams Oceanographer Physical Relationship Specialty Start Date End Date Blake Lindsey MD [address] [place] [address] PCP - General 05/20/16 documented as of this encounter
--- OUTSIDE RECORDS SUMMARY | 2024-07-29 17:49 | XMS_ITS | Encounter Summary ---
Author Organization [facility] Health Address [address] [place] [address] Care Team Providers Care Freight Agent Name Role Phone Blake Lindsey MD Primary Care Provider [phone] Encounter Details Date Type Department Care Team [...] on filedocumented in this encounter Care Teams Freight Agent Relationship Specialty Start Date End Date Blake Lindsey MD [address] [place] [address] PCP - General 05/20/16 documented as of this encounter
--- OUTSIDE RECORDS SUMMARY | 2024-07-29 17:49 | XMS_ITS | Encounter Summary ---
Author Organization [facility] Health Address [address] [facility] [place] [address] Care Team Providers Care Senior Business Broker Name Role Phone Blake Lindsey MD Primary Care Provider [phone] Reason for Visit * Reason Comments Refill Request Encounter Details Date Type Department Care Team (Late st Contact Info) Description 08/30/2023 Refill [facility] [place] [id number] Lowell Pop MD [address] OF PULMONARY/[place] [address] Refill Request Social History Tobacco Use Types [...] deficiency documented in this encounter Care Teams Senior Business Broker Relationship Specialty Start Date End Date Blake Lindsey MD [address] [place] [address] PCP - General 05/20/16 documented as of this encounter
--- OUTSIDE RECORDS SUMMARY | 2024-07-29 17:49 | XMS_ITS | Encounter Summary ---
Author Organization [facility] Health Address [address] [place] [address] Care Team Providers Care Pastry Sous Chef Name Role Phone Blake Lindsey MD Primary Care Provider [phone] Encounter Details Date Type Department Care Team [...] on filedocumented in this encounter Care Teams Pastry Sous Chef Relationship Specialty Start Date End Date Blake Lindsey MD [address] [place] [address] PCP - General 05/20/16 documented as of this encounter
--- OUTSIDE RECORDS SUMMARY | 2024-07-29 17:49 | XMS_ITS | Encounter Summary ---
Author Organization [facility] Health Address [address] [place] [address] Care Team Providers Care Brand Leader Name Role Phone Blake Lindsey MD Primary Care Provider [phone] Encounter Details Date Type Department Care Team [...] COVID-19? No / Unsure 08/13/2021 3:42 PM DIE SETTER documented as of this encounter Functional Status [...] on filedocumented in this encounter Care Teams Brand Leader Relationship Specialty Start Date End Date Blake Lindsey MD [address] [place] [address] PCP - General 05/20/16 documented as of this encounter
--- OUTSIDE RECORDS SUMMARY | 2024-07-29 17:49 | XMS_ITS | Encounter Summary ---
Author Organization [facility] Health Address [address] [place] [address] Care Team Providers Care Haulpak Driver Name Role Phone Blake Lindsey MD Primary Care Provider [phone] Encounter Details Date Type Department Care Team (Latest Contact Info) Description 10/07/2022 9:04 AM RUNSTITCHING MACHINE OPERATOR - 10/07/2022 11:59 PM [facility] Hospital Encounter [facility] DIAGNOSTIC RAD [facility]SM [address] [facility] [place] [address] Jennifer Dia, PADishaC [address] [place] [address] Discharge Disposition: Home or Self Care Social [...] mg by mouth as directed 07/14/2022 NYSTOP [id number] UNIT/GM powder Apply 1 Dose to affected [...] 3VW OR MORE Routine 10/07/2022 9:10 AM RUNSTITCHING MACHINE OPERATOR Bilateral hand pain documented in this encounter Results * XR HAND LEFT 3VW OR MORE (10/07/2022 9:10 AM RUNSTITCHING MACHINE OPERATOR) Anatomical Region Laterality Modality Wrist / Hand Radiographic Jonna ging 10/07/2022 9:56 AM RUNSTITCHING MACHINE OPERATOR Impressions 10/07/2022 9:59 AM RUNSTITCHING MACHINE OPERATOR IMPRESSION: Minimal degenerative changes. > Interpreting Provider: Emil Malone MD on 10/07/2022 9:59 AM Narrative 10/07/2022 9:59 AM RUNSTITCHING MACHINE OPERATOR PROCEDURE: ??XR HAND LEFT 3VW OR MORE, XR HAND RIGHT 3VW OR MORE, DATE/TIME OF EXAM: ??10/07/2022 9:10 AM, LOCATION ??[facility] INDICATION: M79.641: Bilateral hand pain [...] MORE,DATE/TIME OF EXAM: 10/07/2022 9:10 AM, LOCATION [facility] INDICATION: M79.641: Bilateral hand pain [...] limb documented in this encounter Care Teams Haulpak Driver Relationship Specialty Start Date End Date Blake Lindsey MD [address] [place] [address] PCP - General 05/20/16 documented as of this encounter
--- OUTSIDE RECORDS SUMMARY | 2024-07-29 17:49 | XMS_ITS | Encounter Summary ---
Author Organization [facility] Health Address [address] [facility] [place] [address] Care Team Providers Care Payroll Examiner Name Role Phone Blake Lindsey MD Primary Care Provider [phone] Reason for Visit * Reason Comments Refill Request Encounter Details Date Type Department Care Team (Late st Contact Info) Description 12/09/2022 Refill [facility] Sleep Disorder [place] [address] [place] [address] Lowell Pop MD [address] OF PULMONARY/CRITICAL CARE [place], [place] [id number] Refill Request Social History Tobacco Use Types [...] filedocumented in this encounter Care Teams Payroll Examiner Relationship Specialty Start Date End Date Blake Lindsey MD [address] [place] [address] PCP - General 05/20/16 documented as of this encounter
--- OUTSIDE RECORDS SUMMARY | 2024-07-29 17:49 | XMS_ITS | Encounter Summary ---
Author Organization [facility] Health Address [address] [place] [address] Care Team Providers Care Regional Business Development Manager Name Role Phone Blake Lindsey MD Primary Care Provider [phone] Encounter Details Date Type Department Care Team (Late st Contact Info) Description 06/08/2022 [facility] Only [facility] [address] [place] [address] Ashish Peralta MD [address] [facility] OF HEMATOLOGY [place] [address] Hodgkin lymphoma, unspecified Hodgkin lymphoma type, unspecified [...] (ABNORMAL) COMPREHENSIVE METABOLIC PANEL (06/09/2022 3:46 PM [facility]) BUN 12 7 - 26 mg/dL 06/09/2022 [...] 18 7 - 23 06/09/2022 4:29 PM [facility] Osmolality Calculated 291 270 - 300 mOsm/kg 06/09/2022 4:29 PM [facility] Albumin/Globulin Ratio 1.1 1.1 - 2.3 06/09/2022 4:29 PM [facility] eGFR by CKD-EPI >90 >=90 mL/min/1.7 3 m2 06/09/2022 4:29 PM [facility] Blood BLOOD SPECIMEN / Unknown Lab Venipuncture / Unknown 06/09/2022 3:46 PM [employer] 06/09/2022 4:02 PM SOFTWARE [employer] Ashish Peralta MD LAB - CHEMISTRY ORDE HOLLI [facility] Organization Address City/State/ZIP Co de Phone Number [facility] [address] [place] [phone] [phone] * (ABNORMAL) CBC WITH DIFFERENTIAL (06/09/2022 3:46 PM [employer]) WBC 9.8 3.5 - 10.5 10? 3 /uL 06/09/2022 4:08 PM [facility] RBC 4.93 3.80 - 5.20 10? 6 /uL 06/09/2022 4:08 PM [facility] Hemoglobin 15.6 12.0 - 15.6 g/dL 06/09/2022 4:08 PM [facility] Hematocrit 45.9(H) 35.0 - 45.0 % 06/09/2022 4:08 PM [facility] MCV 93.1 80.7 - 98.3 fL 06/09/2022 4:08 PM [facility] MCH 31.6 26.7 - 34.0 pg 06/09/2022 4:08 PM [facility] MCHC 34.0 30.8 - 35.9 g/dL 06/09/2022 4:08 PM [facility] RDW-SD 42.9 36.0 - 50.0 fL 06/09/2022 4:08 PM [facility] RDW-CV 12.5 11.2 - 14.8 % 06/09/2022 4:08 PM [facility] Platelet Count 225 150 - 400 10? 3 /uL 06/09/2022 4:08 PM [facility] MPV 8.6(L) 9.4 - 12.9 fL 06/09/2022 4:08 PM [facility] nRBC Absolute 0.00 0 10? 3 /uL 06/09/2022 4:08 PM [facility] nRBC Auto 0.0 0 /100 WBC 06/09/2022 4:08 PM [facility] Neutrophils % 65.2 35.0 - 70.0 % 06/09/2022 4:08 PM [facility] Lymphocytes % 23.4 20.0 - 43.0 % 06/09/2022 4:08 PM [facility] Monocytes % 7.2 5.0 - 13.0 % 06/09/2022 4:08 PM [facility] Eosinophils % 3.2 0.0 - 6.0 % 06/09/2022 4:08 PM [facility] Basophil % 0.6 0.0 - 2.0 % 06/09/2022 4:08 PM [facility] Neutrophils Absolute 6.37 1.60 - 7.00 10? 3 /uL 06/09/2022 4:08 PM [facility] Lymphocyte Absolute 2.29 1.10 - 3.90 10? 3 /uL 06/09/2022 4:08 PM [facility] Monocytes Absolute 0.70 0.26 - 1.07 10? 3 /uL 06/09/2022 4:08 PM [facility] Eosinophils Absolute 0.31 0.00 - 0.47 10? 3 /uL 06/09/2022 4:08 PM [facility] Basophils Absolute 0.06 0.00 - 0.08 10? 3 /uL 06/09/2022 4:08 PM [facility] Immature Granulocytes % 0.4 0.0 - 1.0 % 06/09/2022 4:08 PM [facility] Immature Granulocytes Absolute 0.04 06/09/2022 4:08 PM [facility] Blood BLOOD SPECIMEN / Unknown Lab Venipuncture / Unknown 06/09/2022 3:46 PM SOFTWARE SALES 06/09/2022 4:02 PM SOFTWARE SALES Ashish Peralta MD LAB - HEMATOLOGY ORD ERABLES [facility] [address] [place] [address], [facility] [phone] documented in this encounter Visit Diagnoses Diagnosis Hodgkin lymphoma, unspecified Hodgkin lymphoma type, unspecified body region (HCC)- Primary documented in this encounter Care Teams Regional Business Development Manager Relationship Specialty Start Date End Date Blake Lindsey MD [address] [place] [address] PCP - General 05/20/16 documented as of this encounter
--- OUTSIDE RECORDS SUMMARY | 2024-07-29 17:49 | XMS_ITS | Encounter Summary ---
Author Organization [facility] Health Address [address] [facility] [facility] [place] [address] Care Team Providers Care Environmental Engineering Technician Name Role Phone Blake Lindsey MD Primary Care Provider [phone] Reason for Visit * Reason Comments Establish Care Spot on nose and sca lp Encounter Details Date Type Department Care Team (Late st Contact Info) Description 03/02/2023 3:20 PM CDT Office Visit [facility] - Dermatology [address] [place] [address], [facility] [place] [address] Jaun Mascorro MD [address] [place] [address] [place] [address] Multiple benign melanocytic nevi of upper and [...] PM CDT Thank you for visiting the [facility] today! Please continue the following [...] your provider in this department. Please visit [email or web address] to schedule your next appointment online. SKIN [...] parietal scalp, 01/2022, removed by plastic surgeon ([facility] Plastic surgery) ROS: No other [...] RTC 6 months MDM based billing (click [employer] for U smart form; click [employer] for [facility] TIME based billing). [employer] Billing Guide Yoan Mendez MD U Dermatology Resident PGY4 documented in this encounter Procedure Notes * Yoan Mendez MD - 03/02/2023 3:25 PM CDTAssociated Order(s): PROC DESTRUCT BENIGN LESION NOT SKIN TAG Procedure(s): MA DESTRUCT BENIGN LESION, 1-14 Pre-Procedure Diagnose(s): Inflamed [...] Order(s): PROC DESTRUCTION OF PRE-MALIGNANT LESIONS Procedure(s): MA DESTROY PREMALIG LESION, 1ST LESION Pre-Procedure Diagnose(s): [...] Procedure Name Priority Date/Time Associated Diagnosis Comments MA DESTRUCT BENIGN LESION, 1-14 Routine 03/02/2023 3:25 PM CDT Inflamed seborrheic keratosis MA DESTROY PREMALIG LESION, 1ST LESION Routine 03/02/2023 3:25 PM CDT Actinic keratosis documented in this encounter Results * MA DESTRUCT BENIGN LESION, 1-14 (03/02/2023 3:25 PM CDT) Narrative Jaun Mascorro MD - 03/02/2023 3:25 PM CDT Yoan Mendez MD ? 03/02/2023 ??3:25 PM Diagnosis and treatment options discussed. Cryotherapy (Liquid Nitrogen) to 1 lesion for 7 seconds each. Number of cycles: 1. Wound care reviewed. Jaun Mascorro MD PROCEDURE/MINOR SURG ICAL ORDERABLES * MA DESTROY PREMALIG LESION, 1ST LESION (03/02/2023 3:25 PM CDT) Narrative Jaun Mascorro MD - 03/02/2023 3:25 PM CDT Yoan Mendez MD ? 03/02/2023 ??3:25 PM Diagnosis and treatment options discussed. Cryotherapy (Liquid Nitrogen) to 1 lesion for 4-6 seconds. Number of cycles: 1. Wound care reviewed. Jaun aMscorro MD PROCEDURE/MINOR SURG ICAL ORDERABLES documented in this encounter Visit Diagnoses Diagnosis Multiple benign melanocytic nevi of upper and lower extremities and trunk- Primary Actinic skin damage Other chronic dermatitis due to solar radiation Lentigines Other dyschromia Seborrheic keratoses Actinic keratosis Inflamed seborrheic keratosis documented in this encounter Care Teams Environmental Engineering Technician Relationship Specialty Start Date End Date Blake Lindsey MD [address] [place] [address] PCP - General 05/20/16 documented as of this encounter
--- OUTSIDE RECORDS SUMMARY | 2024-07-29 17:49 | XMS_ITS | Encounter Summary ---
Author Organization [facility] Health Address [address] [facility] [place] [address] Care Team Providers Care Emr Implementation Specialist Name Role Phone Blake Lindsey MD Primary Care Provider [phone] Reason for Visit * Radiology Services (Urgent) - Closed Specialty Diagnoses / Procedures Referred By Ariel cano Referred To Contact Hematology-Oncology Diagnoses Hodgkin lymphoma, unspecified Hodgkin lymphoma type, unspecified body region (HCC) Procedures CT NECK SOFT TISSUE W CONT Ashish Peralta MD [address] [place] [address] OF HEMATOLOGY & [place]ICAL [place] [address] Referral ID Status Reason Start Date Expiration Date Visits Re quested Visits Authorized [id number] Closed 06/09/2022 06/09/2023 1 1 Encounter Details Date Type Department Care Team (Late st Contact Info) Description 06/18/2022 2:50 PM DOOR TRIMMER - 06/18/2022 11:59 PM [facility] Hospital Encounter [facility] [address] [place] [id number] Ashish Peralta MD [address] [place] [address] OF HEMATOLOGY & MEDICAL [place] [address] Discharge Disposition: Home or Self [...] bilateral nares 22 g 1 03/17/2021 NYSTOP [id number] UNIT/GM powder Apply 1 Dose to affected [...] fluticasone propionate (FLONASE) 50 MCG/ACT nasal spray [place] 2 sprays into each nostril once daily [...] made for 07/08/22. Ashish Peralta MD MSc heat and vent aircraft mechanic Director of Bone Marrow Transplant and Cellular Therapy [facility] [employer] [facility] TRIMMER documented in this encounter Plan of Treatment Not on file documented as of this encounter Procedures Procedure Name Priority Date/Time Associated Diagnosis Comments CT NECK SOFT TISSUE W CONT DEMETRIO 06/18/2022 3:13 PM DOOR TRIMMER Hodgkin lymphoma, unspecified Hodgkin lymphoma type, unspecified body region (HCC) documented in this encounter Results * CT NECK SOFT TISSUE W CONT (06/18/2022 3:13 PM DOOR TRIMMER) Anatomical Region Laterality Modality Head Computed Tomogra phy 06/18/2022 3:25 PM DOOR TRIMMER Impressions 06/19/2022 1:26 PM DOOR TRIMMER IMPRESSION: ?? 1.Stable appearance of the 2 separate hyperdense/enhancing lesions in the superficial lobe of left parotid gland. 2.No significant cervical lymphadenopathy. > Dictated by Lisandro Burris M.D. (doctor of radiology) Jaja Muller MD have personally reviewed and interpreted this examination/study. > Interpreting Provider: Jaja Akers MD on 06/19/2022 1:26 PM Narrative 06/19/2022 1:26 PM DOOR TRIMMER PROCEDURE: ??CT NECK SOFT TISSUE W CONT, DATE/TIME OF EXAM: ??06/18/2022 3:13 PM, LOCATION ??[facility] INDICATION: C81.90: Hodgkin lymphoma, unspecified Hodgkin lymphoma [...] SPACE: Normal. PHARYNX/LARYNX/TRACHEA: Normal. RETROPHARYNGEAL SPACE: Normal. PROGRAMMING DIRECTOR SPACE: Normal. CAROTID SPACE: Retropharyngeal course of [...] CONT, DATE/TIME OF EXAM: :13 PM, LOCATION [facility] INDICATION: C81.90: Hodgkin lymphoma, unspecified Hodgkin lymphoma [...] SPACE: Normal. PHARYNX/LARYNX/TRACHEA: Normal. RETROPHARYNGEAL SPACE: Normal. PROGRAMMING DIRECTOR SPACE: Normal. CAROTID SPACE: Retropharyngeal course of [...] lymphadenopathy. > Dictated by Lisandro Burris M.D. (doctor of radiology) Jaja Muller MD have personally reviewed and [...] $ Given - Contrast 06/18/2022 3:13 PM DOOR TRIMMER 100 mL documented in this encounter Care Teams Emr Implementation Specialist Relationship Specialty Start Date End Date Blake Lindsey MD [address] [place] [address] PCP - General 05/20/16 documented as of this encounter
--- OUTSIDE RECORDS SUMMARY | 2024-07-29 17:49 | XMS_ITS | Encounter Summary ---
Author Organization [facility] Health Address [address] [facility] [place] [address] Care Team Providers Care Sas Clinical Programmer Name Role Phone Blake Lindsey MD Primary Care Provider [phone] Reason for Visit * Reason Comments Refill Request Encounter Details Date Type Department Care Team (Late st Contact Info) Description 07/07/2022 Refill [facility] Sleep Disorder [place] [address] [place] [address] Lowell Pop MD [address] OF PULMONARY/[place] [address] Refill Request Social History Tobacco Use Types [...] No showed for 09/30/2021 No future visits SEINER documented in this encounter Plan of Treatment Not on file documented as of this encounter Visit Diagnoses Diagnosis Vitamin D deficiency- Primary documented in this encounter Care Teams Sas Clinical Programmer Relationship Specialty Start Date End Date Blake Lindsey MD [address] [place] [address] PCP - General 05/20/16 documented as of this encounter
--- OUTSIDE RECORDS SUMMARY | 2024-07-29 17:49 | XMS_ITS | Encounter Summary ---
Author Organization [facility] Health Address [address] [place] [address] Care Team Providers Care Fur Comber Name Role Phone Blake Lindsey MD Primary Care Provider [phone] Encounter Details Date Type Department Care Team (Late st Contact Info) Description 08/13/2021 2:37 PM FURNITURE MOVER HELPER - 08/13/2021 3:42 PM [facility] Hospital Encounter [facility] DIAGNOSTIC RAD CSM [address] [facility] [place] [address] Wai Lowry MD [address] [facility] [place] [address] Discharge Disposition: Home or Self Care Social [...] COVID-19? No / Unsure 08/13/2021 3:42 PM FURNITURE MOVER HELPER documented as of this encounter Functional Status [...] bilateral nares 22 g 1 03/17/2021 NYSTOP [id number] UNIT/GM powder Apply 1 Dose to affected [...] fluticasone propionate (FLONASE) 50 MCG/ACT nasal spray [place] 2 sprays into each nostril once daily [...] OR 2VW Routine 08/13/2021 2: 48 PM FURNITURE MOVER HELPER Pain documented in this encounter Results * XR PELVIS 1 OR 2VW (08/13/2021 2:48 PM FURNITURE MOVER HELPER) Anatomical Region Laterality Modality Pelvis Radiographic Jonna ging 08/13/2021 2:48 PM FURNITURE MOVER HELPER Impressions 08/13/2021 2:50 PM FURNITURE MOVER HELPER IMPRESSION: No acute findings. This report was electronically signed by CHARLIE GOODE ??on 08/13/2021 2:50 PM . Narrative 08/13/2021 2:50 PM FURNITURE MOVER HELPER EXAMINATION: XR PELVIS 1 OR 2VW, XR [...] pain documented in this encounter Care Teams Fur Comber Relationship Specialty Start Date End Date Blake Lindsey MD [address] [place] [address] PCP - General 05/20/16 documented as of this encounter
--- OUTSIDE RECORDS SUMMARY | 2024-07-29 17:49 | XMS_ITS | Encounter Summary ---
Author Organization [facility] Health Address [address] [facility] [place] [address] Care Team Providers Care Director Of Contracts Name Role Phone Blake Lindsey MD Primary Care Provider [phone] Reason for Visit * Reason Onset Date Comments Appointment 06/09/2022 Encounter Details Date Type Department Care Team (Late st Contact Info) Description 06/09/2022 Telephone [facility] [address] [place] [address] Stephanie Cardona MD [address] [place] [address] Appointment Social History Tobacco Use [...] to be seen for Basal cell adenocarcinoma D SPLATTER ANALYST documented in this encounter Plan of Treatment Not on file documented as of this encounter Visit Diagnoses Not on filedocumented in this encounter Care Teams Director Of Contracts Relationship Specialty Start Date End Date Blake Lindsey MD [address] [place] [address] PCP - General 05/20/16 documented as of this encounter
--- OUTSIDE RECORDS SUMMARY | 2024-07-29 17:49 | XMS_ITS | Encounter Summary ---
Author Organization [facility] Health Address [address] [place] [address] Care Team Providers Care Principal Statistical Scientist Name Role Phone Blake Lindsey MD Primary Care Provider [phone] Encounter Details Date Type Department Care Team [...] on filedocumented in this encounter Care Teams Principal Statistical Scientist Relationship Specialty Start Date End Date Blake Lindsey MD [address] [place] [address] PCP - General 05/20/16 documented as of this encounter
--- OUTSIDE RECORDS SUMMARY | 2024-07-29 17:50 | XMS_ITS | Encounter Summary ---
Author Organization [facility] Health Address [address] [facility] [place] [address] Care Team Providers Care Grain Shipper Name Role Phone Blake Lindsey MD Primary Care Provider [phone] Reason for Referral * Radiology Services (Routine) - Closed Specialty Diagnoses / Procedures Referred By Contac t Referred To Contact CT Scan Diagnoses Chronic respiratory failure with hypoxia (HCC) Acute respiratory failure due to COVID-19 (HCC) Procedures CT CHEST WO AIYANA AND Joe Sands MD [address] [place] [address] [facility] [address] [place] [address] Referral ID Status Reason Start Date Expiration Date Visits Re quested Visits Authorized [id number] Closed 04/15/2021 04/15/2022 1 1 Reason for Visit * Radiology Services (Routine) - Closed Specialty Diagnoses / Procedures Referred By Contac t Referred To Contact CT Scan Diagnoses Chronic respiratory failure with hypoxia (HCC) Acute respiratory failure due to COVID-19 (HCC) Procedures CT CHEST WO AIYANA AND Joe Sands MD [address] [facility] [address] [place] [address] [facility] [address] [place] [address] Referral ID Status Reason Start Date Expiration Date Visits Re quested Visits Authorized [id number] Closed 04/15/2021 04/15/2022 1 1 Encounter Details Date Type Department Care Team (Latest Contact Info) Description 05/28/2021 2:30 PM CDT - 05/28/2021 11:59 PM CDT Hospital Encounter [facility] CAT SCAN [address] [place] [address] Don Manuel MD [address] [facility] 2[address] DIV OF PULMONARY/[place] [address] Discharge Disposition: Home or Self [...] bilateral nares 22 g 1 03/17/2021 NYSTOP [id number] UNIT/GM powder Apply 1 Dose to affected [...] fluticasone propionate (FLONASE) 50 MCG/ACT nasal spray [place] 2 sprays into each nostril once daily [...] 09/11/2020 07/15/2021 NARCAN 4 MG/0.1ML nasal spray [place] 4 mg into each nostril as needed [...] (HCC) documented in this encounter Care Teams Grain Shipper Relationship Specialty Start Date End Date Blake Lindsey MD [address] [place] [address] PCP - General 05/20/16 documented as of this encounter
--- OUTSIDE RECORDS SUMMARY | 2024-07-29 17:50 | XMS_ITS | Encounter Summary ---
Author Organization [facility] Health Address [address] [facility] [place] [address] Care Team Providers Care Client Advisor Name Role Phone Blake Lindsey MD Primary Care Provider [phone] Reason for Referral * Evaluate & Treat (Routine) - Closed Specialty Diagnoses / Procedures Referred By Contac t Referred To Contact Sleep Medicine / Sleep Center Diagnoses HECTOR (obstructive sleep apnea) Don Manuel MD [address] DIV OF PULMONARY/[place] [address] Reba Crews, MAYANK-FILTER PRESS PUMPER [address] DIV OF PULMONARY/[place] [address] Referral ID Status Reason Start Date Expiration Date V isits Requested Visits Authorized [id number] Closed Specialty Services Required 03/18/2021 03/18/2022 1 1 * Radiology Services (Routine) - Closed Specialty Diagnoses / Procedures Referred By Contac t Referred To Contact CT Scan Diagnoses Chest pain, unspecified type Hypoxia Lower extremity edema Procedures CT ANGIO CHEST PULM EMBOLISM Don Manuel MD [address] DIV OF PULMONARY/[place] [address] [facility] [address] [place] [address] Referral ID Status Reason Start Date Expiration Date Visits Re quested Visits Authorized [id number] Closed 03/18/2021 03/18/2022 1 1 * Procedure (Routine) - Closed Specialty Diagnoses / Procedures Referred By Contac t Referred To Contact Pulmonary Disease Diagnoses Hypoxia Procedures COMPLETE PFT W/WO BRONCHODILATOR Don Manuel MD [address] [place] [address] [address]L DIV OF PULMONARY/[place] [address] [facility] Pft [address] [place] [address] Referral ID Status Reason Start Date Expiration Date Visits Re quested Visits Authorized [id number] Closed 03/18/2021 03/18/2022 1 1 * Radiology Services (Routine) - Closed Specialty Diagnoses / Procedures Referred By Contac t Referred To Contact Echosonography Diagnoses Chest pain, unspecified type Hypoxia Lower extremity edema Procedures ECHO STRESS W DOBUTAMINE Don Manuel MD [address] [place] [address] [address] DIV OF PULMONARY/[place] [address] [facility] Echo [address] [place] [address] Referral ID Status Reason Start Date Expiration Date Visits Re quested Visits Authorized [id number] Closed 03/18/2021 03/18/2022 1 1 Reason for Visit * Reason Comments Establish Care Encounter Details Date Type Department Care Team (Late st Contact Info) Description 03/18/2021 2:30 PM CDT Office Visit [facility] Pulmonary, Critical Care and Sleep Medicine [address] [facility], [place] [address] Luz Meyer MD [address] [place] [address] Chest pain, unspecified type (Primary Dx); Hypoxia; [...] is here to establish care with the [facility] for: 1. COPD 2. SOB ? Subjective: History of Present Illness: UC December 2020 - pneumonia, zpack, steroids February 01 - + COVID February 07 - was back to full activity but took a nap and woke up with pulse ox of 78% - called ambulance Hospitalized at [facility] for several days - up to 15L [...] ??? BIOPSY ??? HX SPINAL FUSION ??? CO FEMUR/KNEE SURG UNLISTED both knees ??? LUTHER [...] fluticasone propionate (FLONASE) 50 MCG/ACT nasal spray, [place] 2 sprays into each nostril once daily, [...] 0 ??? NARCAN 4 MG/0.1ML nasal spray, [place] 4 mg into each nostril as needed, Disp: , Rfl: ??? NYSTOP [id number] UNIT/GM powder, Apply 1 Dose to affected [...] and not in cardiopulmonary distress. On O2 [place] and anicteric conjunctivae. Vesicular breath sounds. No [...] of Isovue-[address] scans at [facility] are performed using dose optimization techniques [...] Meyer M.D. Pulmonary and Critical Care Fellow [facility] Division of Pulmonary, Critical Care and Sleep Medicine 03/18/2021 Associated attestation - Don Manuel MD - 03/20/2021 8:30 AM CDT I saw and evaluated the patient. I reviewed the resident???s note and agree with findings and plan as documented in the resident???s note Don Manuel MD Division of Pulmonary, Critical Care, & Sleep Medicine [facility] P: [phone] 03/20/2021 , 8:30 AM documented in this [...] Order Schedule Ref to Sleep Specialist - [facility] Outpatient Referral Routine HECTOR (obstructive sleep apnea) [...] Pulmonary, Critical Care, & Sleep Medicine [facility] 05/29/2021 , 3:55 PM I have reviewed the above study and agree with the interpretation as listed above. Rosendo Martinez MD Material Loader of Pulmonary & Critical Care Medicine [facility] Pager [phone] Narrative Rosendo Martinez MD - 05/28/2021 1:16 PM CDT Kris Trimble MD ? 05/29/2021 ??3:53 PM Don Manuel MD RESPIRATORY THERAPY ORDERABLES * PFT OXYGEN DESATURATION STUDY (03/28/2021 2:53 PM CDT) Impressions Manjinder Costa MD - 03/28/2021 2:53 PM CDT [facility] OF PULMONARY, CRITICAL CARE, AND SLEEP MEDICINE [...] and agree with the interpretation by the Giving Officer. Manjinder Costa M.D. Regulatory Assistant of Internal Medicine Division of Pulmonary, Critical Care and Sleep Medicine [facility] Narrative Manjinder Costa MD - 03/28/2021 2:53 PM CDT Elicia Lucero I., DO ? 03/28/2021 ??6:06 PM Don Manuel MD PFT ORDERABLES * SIX MINUTE WALK (03/28/2021 2:52 PM CDT) Impressions Manjinder Costa MD - 03/28/2021 2:52 PM CDT [facility] DEPARTMENT OF [...] and agree with the interpretation by the Giving Officer. Manjinder Costa M.D. Regulatory Assistant of Internal Medicine Division of Pulmonary, Critical Care and Sleep Medicine [facility] Narrative Manjinder Costa MD - 03/28/2021 [...] 10.5 10? 3 /uL 03/28/2021 10:02 AM [facility] RBC 3.85 3.80 - 5.20 10? 6 /uL 03/28/2021 10:02 AM [facility] Hemoglobin 12.3 12.0 - 15.6 g/dL 03/28/2021 10:02 AM [facility] Hematocrit 38.4 35.0 - 45.0 % 03/28/2021 10:02 AM [facility] MCV 99.7(H) 80.7 - 98.3 fL 03/28/2021 10:02 AM [facility] MCH 31.9 26.7 - 34.0 pg 03/28/2021 10:02 AM [facility] MCHC 32.0 30.8 - 35.9 g/dL 03/28/2021 10:02 AM [facility] Platelet Count 186 150 - 400 10? 3 /uL 03/28/2021 10:02 AM [facility] RDW-SD 54.1(H) 36.0 - 50.0 fL 03/28/2021 10:02 AM [facility] RDW-CV 14.7 11.2 - 14.8 % 03/28/2021 10:02 AM [facility] MPV 9.9 9.4 - 12.9 fL 03/28/2021 10:02 AM [facility] nRBC Absolute 0.00 0 10? 3 /uL 03/28/2021 10:02 AM [facility] nRBC Auto 0.0 0 /100 WBC 03/28/2021 10:02 AM [facility] Neutrophils % 50.8 35.0 - 70.0 % 03/28/2021 10:02 AM [facility] Lymphocytes % 34.2 20.0 - 43.0 % 03/28/2021 10:02 AM [facility] Monocytes % 8.0 5.0 - 13.0 % 03/28/2021 10:02 AM [facility] Eosinophils % 5.4 0.0 - 6.0 % 03/28/2021 10:02 AM [facility] Basophil % 0.8 0.0 - 2.0 % 03/28/2021 10:02 AM [facility] Neutrophils Absolute 3.9 1.6 - 7.0 10? 3 /uL 03/28/2021 10:02 AM [facility] Lymphocyte Absolute 2.6 1.1 - 3.9 10? 3 /uL 03/28/2021 10:02 AM [facility] Monocytes Absolute 0.62 0.26 - 1.07 10? 3 /uL 03/28/2021 10:02 AM [facility] Eosinophils Absolute 0.42 0.00 - 0.47 10? 3 /uL 03/28/2021 10:02 AM [facility] Basophils Absolute 0.06 0.00 - 0.08 10? 3 /uL 03/28/2021 10:02 AM CDT [facility] Immature Granulocytes % 0.8 0.0 - 1.0 % 03/28/2021 10:02 AM CDT [facility] Immature Granulocytes Absolute 0.06 03/28/2021 10:02 AM CDT [facility] Blood BLOOD SPECIMEN / Unknown Lab Venipuncture / Unknown 03/28/2021 7:29 AM CDT 03/28/2021 9:52 AM CDT Don Manuel MD LAB - HEMATOLOGY ORD ERABLES [facility] [address] [place] [address], [facility] [phone] * ALLERGEN RESPIRATORY PROF ([place]) IGE (03/28/2021 7:29 AM CDT) IgE Total 4 <=214 kU/L 03/30/2021 3:18 PM CDT [facility] Comment: REFERENCE INTERVAL: Immunoglobulin E, Serum Access complete set of age- and/or gender-specific reference intervals for this test in the [facility] Test Directory ([facility]). Allergen [place] Elder <0.10 <=0.34 kU/L 03/30/2021 3:18 PM CDT [facility] Allergen Alternaria alternata <0.10 <=0.34 kU/L 03/30/2021 3:18 PM CDT [facility] Allergen [place] Maple <0.10 <=0.34 kU/L 03/30/2021 3:18 PM CDT [facility] Allergen Cat Dander <0.10 <=0.34 kU/L 03/30/2021 3:18 PM CDT [facility] Allergen [place] <0.10 <=0.34 kU/L 03/30/2021 3:18 PM CDT [facility] Allergen [place] Tree <0.10 <=0.34 kU/L 03/30/2021 3:18 PM CDT [facility] Allergen Rough Pigweed <0.10 <=0.34 kU/L 03/30/2021 3:18 PM CDT [facility] Allergen [place] Thistle <0.10 <=0.34 kU/L 03/30/2021 3:18 PM CDT [facility] Allergen [place]ono Grass <0.10 <=0.34 kU/L 03/30/2021 3:18 PM CDT [facility] Allergen Hormodendrum <0.10 <=0.34 kU/L 03/30/2021 3:18 PM CDT [facility] Allergen Elm <0.10 <=0.34 kU/L 03/30/2021 3:18 PM CDT [facility] Allergen [place] <0.10 <=0.34 kU/L 03/30/2021 3:18 PM CDT [facility] Allergen A fumigatus IgE <0.10 <=0.34 kU/L 03/30/2021 3:18 PM CDT [facility] Allergen Dermatophagoides pteronyssinus <0.10 <=0.34 kU/L 03/30/2021 3:18 PM CDT [facility] Allergen Dermatophagoides farinae <0.10 <=0.34 kU/L 03/30/2021 3:18 PM CDT [facility] Allergen B[place] Grass <0.10 <=0.34 kU/L 03/30/2021 3:18 PM CDT [facility] Allergen White [place]ver <0.10 <=0.34 kU/L 03/30/2021 3:18 PM CDT [facility] Allergen P. Notatum <0.10 <=0.34 kU/L 03/30/2021 3:18 PM CDT [facility] Allergen Common Ragweed <0.10 <=0.34 kU/L 03/30/2021 3:18 PM CDT [facility] Allergen Cockroach Indonesian <0.10 <=0.34 kU/L 03/30/2021 3:18 PM CDT [facility] Allergen [place] Tree <0.10 <=0.34 kU/L 03/30/2021 3:18 PM CDT [facility] Allergen Christine Tree <0.10 <=0.34 kU/L 03/30/2021 3:18 PM CDT [facility] Allergen Pecan Tree <0.10 <=0.34 kU/L 03/30/2021 3:18 PM CDT [facility] Allergen Mouse Epithelium IgE <0.10 <=0.34 kU/L 03/30/2021 3:18 PM CDT [facility] Allergen Mucor racemosus <0.10 <=0.34 kU/L 03/30/2021 3:18 PM CDT [facility] Allergen White [place] Tree IgE <0.10 <=0.34 kU/L 03/30/2021 3:18 PM CDT [facility] Allergen Dog Dander <0.10 <=0.34 kU/L 03/30/2021 3:18 PM CDT [facility] Comment: Performed By: [employer] [address] [place] [address] Group Leader Wafer Polishing: Karol Bowen MD Blood BLOOD SPECIMEN / Unknown Lab Venipuncture / Unknown 03/28/2021 7:29 AM CDT 03/28/2021 9:40 AM CDT Don Manuel MD LAB - CHEMISTRY [facility] [employer] [facility]) [address] * CT ANGIO CHEST PULM EMBOLISM [...] failure documented in this encounter Care Teams Client Advisor Relationship Specialty Start Date End Date Blake Lindsey MD [address] [place] [address] PCP - General 05/20/16 documented as of this encounter
--- OUTSIDE RECORDS SUMMARY | 2024-07-29 17:50 | XMS_ITS | Encounter Summary ---
Author Organization [facility] Health Address [address] [facility] [place] [address] Care Team Providers Care Computer Systems Analyst Name Role Phone Blake Lindsey MD Primary Care Provider [phone] Encounter Details Date Type Department Care Team (Late st Contact Info) Description 11/05/2020 Orders Only [facility] [address] [place] [address] Kandi Domingo RN Social History Tobacco Use [...] on filedocumented in this encounter Care Teams Computer Systems Analyst Relationship Specialty Start Date End Date Blake Lindsey MD [address] [place] [address] PCP - General 05/20/16 documented as of this encounter
--- OUTSIDE RECORDS SUMMARY | 2024-07-29 17:50 | XMS_ITS | Encounter Summary ---
Author Organization [facility] Health Address [address] [place] [address] Care Team Providers Care Application Engineer Name Role Phone Blake Lindsey MD Primary Care Provider [phone] Encounter Details Date Type Department Care Team (Latest Contact Info) Description 03/28/2021 7:06 AM CDT - 03/28/2021 7:57 AM CDT Hospital Encounter [facility] LAB OP DRAW STATION [address] [place] [address] Don Manuel MD [address] [facility] 2L DIV OF PULMONARY/[place] [address] Discharge Disposition: Home or Self Care Social [...] bilateral nares 22 g 1 03/17/2021 NYSTOP 223798 UNIT/GM powder Apply 1 Dose to affected [...] fluticasone propionate (FLONASE) 50 MCG/ACT nasal spray [place] 2 sprays into each nostril once daily [...] 09/11/2020 07/15/2021 NARCAN 4 MG/0.1ML nasal spray [place] 4 mg into each nostril as needed [...] Immunocap Score See Note 3:26 PM CDT [employer] ([facility]) Comment: REFERENCE INTERVAL: Allergen, Interpretation [...] clinical allergy or even anaphylaxis. Performed By: mAPPn [address] [place] [address] Commercial Loan Administrator: Karol Bowen MD Blood BLOOD SPECIMEN / Unknown Lab Venipuncture / Unknown 03/28/2021 7:29 AM CDT 03/28/2021 9:40 AM CDT Don Manuel MD LAB - SEROLOGY ORDER GITA [facility] [employer] ([facility]) [address] [place] [address], [facility] * (ABNORMAL) CBC WITH DIFFERENTIAL (03/28/2021 7:29 AM CDT) [facility] WBC 7.7 3.5 - 10.5 10? 3 /uL 03/28/2021 10:02 AM CDT [facility] LABORATORY [facility] RBC 3.85 3.80 - 5.20 10? 6 /uL 03/28/2021 10:02 AM [facility] Hemoglobin 12.3 12.0 - 15.6 g/dL 03/28/2021 10:02 AM [facility] Hematocrit 38.4 35.0 - 45.0 % 03/28/2021 10:02 AM [facility] MCV 99.7(H) 80.7 - 98.3 fL 03/28/2021 10:02 AM [facility] MCH 31.9 26.7 - 34.0 pg 03/28/2021 10:02 AM [facility] MCHC 32.0 30.8 - 35.9 g/dL 03/28/2021 10:02 AM [facility] Platelet Count 186 150 - 400 10? 3 /uL 03/28/2021 10:02 AM [facility] RDW-SD 54.1(H) 36.0 - 50.0 fL 03/28/2021 10:02 AM [facility] RDW-CV 14.7 11.2 - 14.8 % 03/28/2021 10:02 AM [facility] MPV 9.9 9.4 - 12.9 fL 03/28/2021 10:02 AM [facility] nRBC Absolute 0.00 0 10? 3 /uL 03/28/2021 10:02 AM [facility] nRBC Auto 0.0 0 /100 WBC 03/28/2021 10:02 AM [facility] Neutrophils % 50.8 35.0 - 70.0 % 03/28/2021 10:02 AM [facility] Lymphocytes % 34.2 20.0 - 43.0 % 03/28/2021 10:02 AM [facility] Monocytes % 8.0 5.0 - 13.0 % 03/28/2021 10:02 AM [facility] Eosinophils % 5.4 0.0 - 6.0 % 03/28/2021 10:02 AM [facility] Basophil % 0.8 0.0 - 2.0 % 03/28/2021 10:02 AM [facility] Neutrophils Absolute 3.9 1.6 - 7.0 10? 3 /uL 03/28/2021 10:02 AM [facility] Lymphocyte Absolute 2.6 1.1 - 3.9 10? 3 /uL 03/28/2021 10:02 AM CDT [facility] Monocytes Absolute 0.62 0.26 - 1.07 10? 3 /uL 03/28/2021 10:02 AM CDT [facility] Eosinophils Absolute 0.42 0.00 - 0.47 10? 3 /uL 03/28/2021 10:02 AM CDT [facility] Basophils Absolute 0.06 0.00 - 0.08 10? 3 /uL 03/28/2021 10:02 AM CDT [facility] LABORATORY [facility] Immature Granulocytes % 0.8 0.0 - 1.0 % 03/28/2021 10:02 AM T [facility] Immature Granulocytes Absolute 0.06 03/28/2021 10:02 AM [facility] Blood BLOOD SPECIMEN / Unknown Lab Venipuncture / Unknown 03/28/2021 7:29 AM CDT 03/28/2021 9:52 AM CDT Don Manuel MD LAB - HEMATOLOGY ORD ERABLES [facility] [address] [place] [address], [facility] [phone] * ALLERGEN RESPIRATORY PROF (IL,[place],IA) IGE (03/28/2021 7:29 AM CDT) IgE Total 4 <=214 kU/L 03/30/2021 3:18 PM CDT [facility]) Comment: REFERENCE INTERVAL: Immunoglobulin E, Serum Access complete set of age- and/or gender-specific reference intervals for this test in the [employer] Test Directory ([employer]). Allergen Meier Elder <0.10 <=0.34 kU/L 03/30/2021 3:18 PM CDT [facility] ([facility]) Allergen Alternaria alternata <0.10 <=0.34 kU/L 03/30/2021 3:18 PM CDT [facility]) Allergen [place] Maple <0.10 <=0.34 kU/L 03/30/2021 3:18 PM CDT [facility] ([facility]) Allergen Cat Dander <0.10 <=0.34 kU/L 03/30/2021 3:18 PM CDT [facility] ([facility]) Allergen [place] <0.10 <=0.34 kU/L 03/30/2021 3:18 PM CDT [facility] ([facility]) Allergen [place] Tree <0.10 <=0.34 kU/L 03/30/2021 3:18 PM CDT [facility] ([facility]) Allergen Rough Pigweed <0.10 <=0.34 kU/L 03/30/2021 3:18 PM CDT [facility] ([facility]) Allergen Cypriot Thistle <0.10 <=0.34 kU/L 03/30/2021 3:18 PM CDT [facility] ([facility]) Allergen Tono Grass <0.10 <=0.34 kU/L 03/30/2021 3:18 PM CDT [facility] ([facility]) Allergen Hormodendrum <0.10 <=0.34 kU/L 03/30/2021 3:18 PM CDT [facility] ([facility]) Allergen Elm <0.10 <=0.34 kU/L 03/30/2021 3:18 PM CDT [facility] ([facility]) Allergen [place] <0.10 <=0.34 kU/L 03/30/2021 3:18 PM CDT [facility] ([facility]) Allergen A fumigatus IgE <0.10 <=0.34 kU/L 03/30/2021 3:18 PM CDT [facility] ([facility]) Allergen Dermatophagoides pteronyssinus <0.10 <=0.34 kU/L 03/30/2021 3:18 PM CDT [facility] ([facility]) Allergen Dermatophagoides farinae <0.10 <=0.34 kU/L 03/30/2021 3:18 PM CDT [facility] ([facility]) Allergen Bermuda Grass <0.10 <=0.34 kU/L 03/30/2021 3:18 PM CDT [facility] ([facility]) Allergen White Grover <0.10 <=0.34 kU/L 03/30/2021 3:18 PM CDT [facility] ([facility]) Allergen P. Notatum <0.10 <=0.34 kU/L 03/30/2021 3:18 PM CDT [facility] ([facility]) Allergen Common Ragweed <0.10 <=0.34 kU/L 03/30/2021 3:18 PM CDT [facility] ([facility]) Allergen Cockroach Russian <0.10 <=0.34 kU/L 03/30/2021 3:18 PM CDT [facility] ([facility]) Allergen [place] Tree <0.10 <=0.34 kU/L 03/30/2021 3:18 PM CDT [facility] ([facility]) Allergen [place] Tree <0.10 <=0.34 kU/L 03/30/2021 3:18 PM CDT [facility] ([facility]) Allergen Pecan Tree <0.10 <=0.34 kU/L 03/30/2021 3:18 PM CDT [facility] ([facility]) Allergen Mouse Epithelium IgE <0.10 <=0.34 kU/L 03/30/2021 3:18 PM CDT [facility] ([facility]) Allergen Mucor racemosus <0.10 <=0.34 kU/L 03/30/2021 3:18 PM CDT [facility] ([facility]) Allergen White [place] Tree IgE <0.10 <=0.34 kU/L 03/30/2021 3:18 PM CDT [facility] ([facility]) Allergen Dog Dander <0.10 <=0.34 kU/L 03/30/2021 3:18 PM CDT [facility] ([facility]) Comment: Performed By: [facility] [address] [place] [address] Commercial Loan Administrator: Karol Bowen MD Blood BLOOD SPECIMEN / Unknown Lab Venipuncture / Unknown 03/28/2021 7:29 AM CDT 03/28/2021 9:40 AM CDT Don Manuel MD LAB - CHEMISTRY [facility] Organization Address City/State/ZIP Co de Phone Number [facility]) [address] [place] [address] documented in this encounter Visit Diagnoses Diagnosis Hypoxia Hypoxemia Uncomplicated asthma, unspecified asthma severity, unspecified whether persistent (HCC) Chronic obstructive pulmonary disease, unspecified COPD type (HCC) documented in this encounter Care Teams Application Engineer Relationship Specialty Start Date End Date Blake Lindsey MD [address] [place] [id number] PCP - General 05/20/16 documented as of this encounter
--- OUTSIDE RECORDS SUMMARY | 2024-07-29 17:50 | XMS_ITS | Encounter Summary ---
Author Organization [facility] Health Address [address] [place] [address] Care Team Providers Care Consulting Sales Manager Name Role Phone Blake Lindsey MD Primary Care Provider [phone] Reason for Referral * Procedure (Routine) - Closed Specialty Diagnoses / Procedures Referred By Contac t Referred To Contact Pulmonary Disease Diagnoses Hypoxia Procedures COMPLETE PFT W/WO BRONCHODILATOR Don Manuel MD [address] [facility] 2L DIV OF PULMONARY/[place] [address] [facility] Pft [address] [place] [address] Referral ID Status Reason Start Date Expiration Date Visits Re quested Visits Authorized [id number] Closed 03/18/2021 03/18/2022 1 1 Reason for Visit * Procedure (Routine) - Closed Specialty Diagnoses / Procedures Referred By Contac t Referred To Contact Pulmonary Disease Diagnoses Hypoxia Procedures COMPLETE PFT W/WO BRONCHODILATOR Don Manuel MD [address] [facility] 2L DIV OF PULMONARY/[place] [address] [facility] Pft [address] [place] [address] Referral ID Status Reason Start Date Expiration Date Visits Re quested Visits Authorized [id number] Closed 03/18/2021 03/18/2022 1 1 Encounter Details Date Type Department Care Team (Latest Contact Info) Description 05/28/2021 1:00 PM CDT - 05/28/2021 1:16 PM CDT Hospital Encounter [facility] PFT [address] [place] [phone] Don Manuel MD [address] [facility] 2L DIV OF PULMONARY/[place] [address] Discharge Disposition: Home or Self Care Social [...] bilateral nares 22 g 1 03/17/2021 NYSTOP 547885 UNIT/GM powder Apply 1 Dose to affected [...] fluticasone propionate (FLONASE) 50 MCG/ACT nasal spray [place] 2 sprays into each nostril once daily [...] 09/11/2020 07/15/2021 NARCAN 4 MG/0.1ML nasal spray [place] 4 mg into each nostril as needed [...] - 7.45 pH 05/28/2021 1:52 PM CDT [facility]ORATORY [facility] pO2 Arterial 86 80 - 100 mmHg 05/28/2021 1:52 PM CDT [facility] HOSPITAL pCO2 Arterial 39 35 - 45 mmHg 1:52 PM CDT [facility]OR[facility] BE Arterial 1.6 -2.0 - 2.0 mmol/L 05/28/2021 1:52 PM [facility] Oxyhemoglobin Arterial 95.3 % 05/28/2021 1:52 PM [facility] Dexoyhemoglobin (HHB) % 1.8 % 05/28/2021 1:52 PM [facility] O2 Content Arterial 19.5 Interpret within clinical context mg/dL 05/28/2021 1:52 PM [facility] Hemoglobin by COOX 14.5 12.0 - 15.6 g/dL 05/28/2021 1:52 PM [facility] O2 Saturation Arterial 98 90 - 100 % 05/28/2021 1:52 PM [facility] HCO3 Arterial 26 20 - 30 mmol/l 05/28/2021 1:52 PM [facility] Methemoglobin 1.2 0.0 - 2.0 % 05/28/2021 1:52 PM [facility] Carboxyhemoglobin 1.7 0.0 - 2.0 % 2020 1:52 PM [facility]OR[facility] Comment:Carboxyhemoglobin No rmal Concentration: Non-smokers: 0-2%; Smokers: 0- 9%; Toxic: >20% Blood, arterial ARTERIAL BLOOD SPECIMEN / Unknown 05/28/2021 1:52 PM CDT 05/28/2021 1:52 PM CDT Don Manuel MD LAB - POINT OF CARE ORDERABLES [facility] LABORATORY [address] [address], [facility] [phone] * BLOOD GAS COOX ART POC NOTIFICATION (05/28/2021 1:35 PM CDT) Comment Notification Label Only - See Separate Report 05/28/2021 3:00 PM CDT [facility] PULMONARY FUNCTION LAB Other MISCELLANEOUS SAMPLES / Unknown Collection / Unknown 05/28/2021 1:35 PM CDT 05/28/2021 1:35 PM CDT Don Manuel MD LAB - BLOOD GASES OR DERABLES [facility] PULMONARY FUNCTION LAB * PFT OXYGEN DESATURATION STUDY (05/28/2021 1:16 PM CDT) Impressions Rosendo Martinez MD - 05/28/2021 1:16 PM CDT [facility] DEPARTMENT OF PULMONARY, CRITICAL CARE, AND [...] of Pulmonary, Critical Care, & Sleep Medicine [facility] 05/29/2021 3:57 PM ?? I have reviewed the above study and agree with the interpretation as listed above. Rosendo Martinez MD Head Of Sales Promotion of Pulmonary & Critical Care Medicine [facility] Pager [phone] Narrative Rosendo Martinez MD - 05/28/2021 1:16 PM CDT Kris Trimble MD ? 05/29/2021 ??3:56 PM Joe Lomas MD PFT ORDERABLES * COMPLETE PFT W/WO BRONCHODILATOR (05/28/2021 1:16 PM CDT) Impressions Rosendo Martinez MD - 05/28/2021 1:16 PM CDT [facility] DEPARTMENT OF PULMONARY, CRITICAL CARE, [...] of Pulmonary, Critical Care, & Sleep Medicine [facility] 05/29/2021 , 3:55 PM I have reviewed the above study and agree with the interpretation as listed above. Rosendo Martinez MD Head Of Sales Promotion of Pulmonary & Critical Care Medicine [facility] Pager [phone] Narrative Rosendo Martinez MD - 05/28/2021 1:16 PM CDT Kris Trimble MD ? 05/29/2021 ??3:53 PM Don Manuel MD RESPIRATORY THERAPY ORDERABLES documented in this encounter Visit Diagnoses Diagnosis Hypoxia Hypoxemia Chronic obstructive pulmonary disease, unspecified COPD type (HCC) Chronic respiratory failure with hypoxia (HCC) Chronic respiratory failure documented in this encounter Care Teams Consulting Sales Manager Relationship Specialty Start Date End Date Blake Lindsey MD [address] [place] [address] PCP - General 05/20/16 documented as of this encounter
--- OUTSIDE RECORDS SUMMARY | 2024-07-29 17:50 | XMS_ITS | Encounter Summary ---
Author Organization [facility] Health Address [address] [place] [address] Care Team Providers Care Power Electronics Engineer Name Role Phone Blake Lindsey MD Primary Care Provider [phone] Encounter Details Date Type Department Care Team (Late st Contact Info) Description 10/23/2020 Orders Only [facility] [address] [place] [address] Nia Augustin, CORPORATE SAFETY MANAGER-PHARMACY INFORMATICS SPECIALIST [address] [place], [place] [id number] Parotid nodule Social History Tobacco Use Types [...] glands documented in this encounter Care Teams Power Electronics Engineer Relationship Specialty Start Date End Date Blake Lindsey MD [address] [place] [address] PCP - General 05/20/16 documented as of this encounter
--- OUTSIDE RECORDS SUMMARY | 2024-07-29 17:50 | XMS_ITS | Encounter Summary ---
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 Primary central sleep apnea Procedures PROC POLYSOMNOGRAPHY,THERAPEUT IC FULL NIGHT Reba Crews APNP-PROOFREADER [address] [place] [address] [facility] [address] [place] [address] Referral ID Status Reason Start Date Expiration Date Visits Re quested Visits Authorized [id number] Closed 07/15/2021 07/15/2022 1 1 [place] COSMETICS SALES BEAUTY ADVISOR Reason for Visit * Reason Comments Obstructive Sleep Apnea Cpap Follow-up * Evaluate & Treat (Routine) - Closed Specialty Diagnoses / Procedures Referred By Contac t Referred To Contact Sleep Medicine / Sleep Center Diagnoses HECTOR (obstructive sleep apnea) Don Manuel MD [address] DIV OF PULMONARY/[place] [address] Reba Crews APNP-CNP [address] DIV OF PULMONARY/[place] [address] Referral ID Status Reason Start Date Expiration Date V isits Requested Visits Authorized [id number] Closed Specialty Services Required 03/18/2021 03/18/2022 1 1 Encounter Details Date Type Department Care Team (Late st Contact Info) Description 07/15/2021 9:00 AM RETAIL COSMETICS SALES BEAUTY ADVISOR Office Visit [facility] [address] [place] [address] Don Manuel MD [address] DIV OF PULMONARY/[place] [address] Reba Crews APNP-CNP [address] DIV OF PULMONARY/[place] [address] Central sleep apnea comorbid with prescribed opioid [...] COVID-19? No / Unsure 07/01/2021 1:04 PM RETAIL COSMETICS SALES BEAUTY ADVISOR documented as of this encounter Last Filed Vital Signs Vital Sign Reading Time Taken Comments Blood Pressure 99/68 07/15/2021 8:30 AM RETAIL COSMETICS SALES BEAUTY ADVISOR Pulse 88 07/15/2021 8:30 AM RETAIL COSMETICS SALES BEAUTY ADVISOR Temperature - - Respiratory Rate - - Oxygen Saturation - - Inhaled Oxygen Concentration - - Weight 83.7 kg (184 lb 8 oz) 07/15/2021 8:30 AM RETAIL COSMETICS SALES BEAUTY ADVISOR Height 158.8 cm (5' 2.5 ) 07/15/2021 8:30 AM RETAIL COSMETICS SALES BEAUTY ADVISOR Body Mass Index 33.21 07/15/2021 8:30 AM RETAIL COSMETICS SALES BEAUTY ADVISOR documented in this encounter Functional Status Functional [...] Patient Instructions * Patient Instructions* Reba Crews APNP-PROOFREADER - 07/15/2021 9:08 AM RETAIL COSMETICS SALES BEAUTY ADVISOR Images from the original note were not included. Thank you for registering. For future reference, please save the following information so that we may be able to service you more effectively: Your confirmation code is: [id number] What to expect next: We regret that [...] For more information and updates, please visit [employer]-update where we will be updating answers to frequently asked questions (FAQ) as more information becomes available or call in the [place] and [facility] or [phone] outside the [place]. Thank you. [facility], First Floor, [address] MRN# Intersection of [place] and [id number] [place] [address] Date of Sleep Study: 08/05/2021 Arrive by [...] maintain cleanliness, we ask that you bring fwjeo-sd-[id number] items such as a sandwich, apple, etc. [...] leave a message for the in-clinic evening Machine Set Up Operator Paper Goods. If you are unable to come, kindly call us in advance at [facility]. Obtaining authorization for a sleep test is often very difficult and time consuming. Therefore, if you have any insurance changes, please notify our office staff immediately to prevent the cancelation of your test. We need 1-2 weeks or more to get an insurance approval. [place] COSMETICS SALES BEAUTY ADVISOR documented in this encounter Progress Notes * Reba Crews, MAYANK-PROOFREADER - 07/15/2021 9:08 AM CST Images from the original note were not included. Lakeisha Alejandra 1970 07/15/2021 Patient location: Clinic Time allotted for visit by Tony 20 minutes Don Manuel MD [address] Of Pulmonary/[place] [address] Chief Complaint Patient presents with ??? Obstructive Sleep Apnea ??? Cpap Follow-up HPI: Patient has had a previous sleep evaluation. Diagnosed with CSA in about 2015 [facility] in [place], [place] on [address] 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 [place] Sleep Scale - 7 /24 Fatigue Severity [...] tired: Morning to early afternoon Snoring intensity: [place] when outside room, door closed Mouth breather: [...] fluticasone propionate (FLONASE) 50 MCG/ACT nasal spray, [place] 2 sprays into each nostril once daily, [...] Disp: 22 g, Rfl: 1 ??? NYSTOP [id number] UNIT/GM powder, Apply 1 Dose to affected [...] and insomnia SOCIAL HISTORY: Occupational History: Occupation: [employer]. Shift work: No Social History Socioeconomic History ??? Marital status: Single Spouse name: x2 ??? Number of children: 2 ??? Years of education: 14 ??? Highest education level: Associate degree: occupational, technical, or vocational program Occupational History ??? Occupation: [employer] Tobacco Use ??? Smoking status: Former Smoker [...] on file Social History Narrative AD in [place] Lives duplex with female roommate Pets 1 [...] per Exercise Schedule: Walking mostly at work-currently 61786 steps for July PHYSICAL EXAMINATION: Visit Vitals [...] Allergen Alternaria alternata <=0.34 kU/L <0.10 Allergen Hitchcock Maple <=0.34 kU/L <0.10 Allergen Cat Dander <=0.34 kU/L <0.10 Allergen Mountain Don[place]han <=0.34 kU/L <0.10 Allergen [place]on[place]a Tree <=0.34 kU/L <0.10 Allergen Rough Pigweed <=0.34 kU/L <0.10 Allergen Turkish Thistle <=0.34 kU/L <0.10 Allergen Tono Grass <=0.34 kU/L <0.10 Allergen Hormodendrum <=0.34 kU/L <0.10 Allergen Elm <=0.34 kU/L <0.10 Allergen Chicopee <=0.34 kU/L <0.10 Allergen Aspergillus fumigatus IgE <=0.34 kU/L <0.10 Allergen Dermatophagoides pteronyssinus <=0.34 kU/L <0.10 Allergen Dermatophagoides farinae <=0.34 kU/L <0.10 Allergen Bermuda Grass <=0.34 kU/L <0.10 Allergen White Grover <=0.34 kU/L <0.10 Allergen P. Notatum <=0.34 kU/L <0.10 Allergen Common Ragweed <=0.34 kU/L <0.10 Allergen Cockroach Peruvian <=0.34 kU/L <0.10 Allergen Buffalo Creek Tree <=0.34 kU/L <0.10 Allergen [place] Tree <=0.34 kU/L <0.10 Allergen Pecan Tree <=0.34 kU/L <0.10 Allergen Mouse Epithelium IgE <=0.34 kU/L <0.10 Allergen Mucor racemosus <=0.34 kU/L <0.10 Allergen White Salina Tree IgE <=0.34 kU/L <0.10 Allergen Dog [...] More than 50% of visit was direct [id number], including counseling and coordination of care. Reba Crews, Ph.D.c, D.N.P, A.N.P.-B.C. Adult Nurse Practitioner flight test engineer Director, CPAP Adherence [facility] These notes have been electronically signed by Reba Crews APN as the Authorizing and/or the Encounter Provider in the [facility]. 07/15/2021 Coding Rationale New or est? New Patient Highest problem complexity: 1 or more chronic illnesses with exacerbation, progression, or side effects of treatment Data review: Review of result(s): 3 or more unique source(s) Ordering of test(s): 1 unique test(s) ordered Independent interpretation of test(s) - I independently interpreted the following test(s): cpap epworth fatigue Suggested code: 51483 [place] COSMETICS SALES BEAUTY ADVISOR documented in this encounter Plan of Treatment Not on file documented as of this encounter Results * [place] POLYSOM 6/>YRS CPAP 4/> PARM (08/06/2021 10:18 AM RETAIL COSMETICS SALES BEAUTY ADVISOR) Narrative Lowell Pop MD - 08/06/2021 10:18 AM RETAIL COSMETICS SALES BEAUTY ADVISOR Lowell Pop MD ? 08/06/2021 10:19 AM [facility] Accredited by the [employer] [facility], First Floor [address] [place] [address] Telephone : [phone] ? Medical Records Patient Name: Lakeisha Alejandra : 1970 Date of Study: 08/05/2021 Referring Physician: Blake Lindsey MD Type of Montage: Respiratory Scoring Montage: ??[facility] FULL NIGHT THERAPEUTIC POLYSOMNOGRAM INTERPRETATION Procedure: The polysomnogram was performed with a surgical scrub technologist in attendance. ??Central, occipital, and temporal [...] History: Ms. Lakeisha Alejandra, a 50 year [id number] female, was referred to the Sleep Disorders [...] ?fluticasone propionate (FLONASE) 50 MCG/ACT nasal spray, [place] 2 sprays into each nostril once daily, [...] nares, Disp: 22 g, Rfl: 1 ?NYSTOP [id number] UNIT/GM powder, Apply 1 Dose to affected [...] shunt, diffusion abnormality, etc.). Lowell Pop MD, [facility], [facility], [facility] Medical Lab Technician, [facility] Professor of Internal Medicine Adjunct Location And Measurement Technician of Neurology Division of Pulmonary, Critical Care, and Sleep Medicine [facility] This note was electronically signed on 08/06/2021. Reba Crews APNP-PROOFREADER PROCEDUR E/MINOR SURGICAL ORDERABLES documented in this [...] apnea documented in this encounter Care Teams Interior Design Professional Relationship Specialty Start Date End Date Blake Lindsey MD [address] [place] [address] PCP - General 05/20/16 documented as of this encounter
--- OUTSIDE RECORDS SUMMARY | 2024-07-29 17:50 | XMS_ITS | Encounter Summary ---
Author Organization [facility] Health Address [address] [facility] [place] [address] Care Team Providers Care It Sales Executive Name Role Phone Blake Lindsey MD Primary Care Provider [phone] Reason for Visit * Reason Onset Date Comments MEDICATION REFILL 08/08/2020 Encounter Details Date Type Department Care Team (Late st Contact Info) Description 08/08/2020 Refill [facility] [address] [place] [address] Kandi Domingo RN MEDICATION REFILL Social History [...] CST Refills authorized per Otolaryngology protocol 01/31/2020. LATION CUPOLA OPERATOR documented in this encounter Plan of Treatment Not on file documented as of this encounter Visit Diagnoses Not on filedocumented in this encounter Care Teams It Sales Executive Relationship Specialty Start Date End Date Blake Lindsey MD [address] [place] [address] PCP - General 05/20/16 documented as of this encounter
--- OUTSIDE RECORDS SUMMARY | 2024-07-29 17:50 | XMS_ITS | Encounter Summary ---
Author Organization [facility] Health Address [address] [place] [address] Care Team Providers Care Dining Service Inspector Name Role Phone Blake Lindsey MD Primary Care Provider [phone] Reason for Referral * Radiology Services (Routine) - Closed Specialty Diagnoses / Procedures Referred By Ariel cano Referred To Contact CT Scan Diagnoses Parotid nodule Procedures CT NECK SOFT TISSUE W CONT Nia Augustin APRN-CNP [address] [place] [id number] Referral ID Status Reason Start Date Expiration Date Visits Re quested Visits Authorized [id number] Closed 09/26/2020 09/26/2021 1 1 ICE SUPERVISOR Encounter Details Date Type Department Care Team (Late st Contact Info) Description 09/26/2020 Orders Only [facility] [address] [place] [phone] Nia Augustin APRN-CNP [address] [place] [address] [phone] Parotid nodule Social History Tobacco Use Types [...] lymph node. Dictated by Balta Arellano DO (president mortgage company) I, Dr. JAJA AKERS have personally reviewed [...] lymph node. Dictated by Balta Arellano DO (president mortgage company) I, Dr. JAJA AKERS have personally reviewed and interpreted this examination/study. This report was electronically signed by JAJA AKERS on 10/18/2020 3:35PM . Nia Augustin PRESSURE TESTER-POULTRY RAISER CT ORDERABLES documented in this encounter Visit Diagnoses Diagnosis Parotid nodule- Primary Other specified diseases of the salivary glands Parotid nodule Other specified diseases of the salivary glands documented in this encounter Care Teams Dining Service Inspector Relationship Specialty Start Date End Date Blake Lindsey MD [address] [place] [address] PCP - General 05/20/16 documented as of this encounter
--- OUTSIDE RECORDS SUMMARY | 2024-07-29 17:50 | XMS_ITS | Encounter Summary ---
Author Organization [facility] Health Address [address] [facility] [place] [address] Care Team Providers Care Payroll Services Analyst Name Role Phone Blake Lindsey MD Primary Care Provider [phone] Reason for Referral * Radiology Services (Routine) - Closed Specialty Diagnoses / Procedures Referred By Ariel cano Referred To Contact CT Scan Diagnoses Lesion of parotid gland Procedures CT NECK SOFT TISSUE W CONT Castillo Max MD [address] [place] [address] [facility] [place] [address] Referral ID Status Reason Start Date Expiration Date Visits Re quested Visits Authorized [id number] Closed 06/05/2021 06/05/2022 1 1 Encounter Details Date Type Department Care Team (Late st Contact Info) Description 06/05/2021 1:00 PM CDT Office Visit [facility] [address] Castillo Max MD [address] [place] [address] Lesion of parotid gland (Primary Dx) Social [...] SOFT TISSUE W CONT (07/01/2021 1:59 PM GLOBAL SALES MANAGER) Anatomical Region Laterality Modality Head Computed Tomogra phy 07/01/2021 3:50 PM GLOBAL SALES MANAGER Impressions 07/01/2021 4:36 PM GLOBAL SALES MANAGER IMPRESSION: 1. Given the technical differences, the [...] 4:36 PM . Narrative 07/01/2021 4:[address] SOFT TISSUE NECK WITH INTRAVENOUS CONTRAST. [...] gland documented in this encounter Care Teams Payroll Services Analyst Relationship Specialty Start Date End Date Blake iLndsey MD [address] [place] [address] PCP - General 05/20/16 documented as of this encounter
--- OUTSIDE RECORDS SUMMARY | 2024-07-29 17:50 | XMS_ITS | Encounter Summary ---
Author Organization [facility] Health Address [address] [facility] [place] [address] Care Team Providers Care Icing Maker Name Role Phone Blake Lindsey MD Primary Care Provider [phone] Encounter Details Date Type Department Care Team [...] on filedocumented in this encounter Care Teams Icing Maker Relationship Specialty Start Date End Date Blake Lindsey MD [address] [place] [address] PCP - General 05/20/16 documented as of this encounter
--- OUTSIDE RECORDS SUMMARY | 2024-07-29 17:50 | XMS_ITS | Encounter Summary ---
Author Organization [facility] Health Address [address] [facility] [place] [address] Care Team Providers Care Last Repairer Helper Name Role Phone Blake Lindsey MD Primary Care Provider Encounter Details Date Type Department Care Team (Late st Contact Info) Description 07/31/2020 Orders Only [facility] [address] [place] [address] Nia Augustin, SUPERVISOR DENTAL LABORATORY-FORMULA ROOM WORKER [address] [place] [address] Social History Tobacco Use Types Packs/Day Years [...] on filedocumented in this encounter Care Teams Last Repairer Helper Relationship Specialty Start Date End Date Blake Lindsey MD [address] [place] [address] PCP - General 05/20/16 documented as of this encounter
--- OUTSIDE RECORDS SUMMARY | 2024-07-29 17:50 | XMS_ITS | Encounter Summary ---
Author Organization [facility] Health Address [address] [facility] [place] [address] Care Team Providers Care Preschool Education Director Name Role Phone Blake Lindsey MD Primary Care Provider [phone] Encounter Details Date Type Department Care Team (Late st Contact Info) Description 07/01/2021 2:00 PM APARTMENT LEASING MANAGER Testing Visit [facility] [address] [facility], [place] [phone] LoweLeann, AuD [address] [facility] [address] [place] [address] Ear fullness, bilateral Social History Tobacco Use [...] COVID-19? No / Unsure 07/01/2021 1:04 PM APARTMENT LEASING MANAGER documented as of this encounter Functional Status [...] AUDIOLOGY/TYMPANOME TRY ORDER Routine 07/01/2021 2:21 PM APARTMENT LEASING MANAGER documented in this encounter Results * AUDIOLOGY/TYMPANOMETRY ORDER (07/01/2021 2:21 PM APARTMENT LEASING MANAGER) Narrative Leann Cross AuD - 07/01/2021 2:31 PM APARTMENT LEASING MANAGER History: Lakeisha Alejandra arrived for a hearing [...] change in hearing is suspected. Andrea Galeano. [facility]-A Clinical Commercial Makeup Artist [facility]-Department of Otolaryngology/Audiology [facility] [address] [place] [address] ([facility]) [place] [address] Leann Cross Andrea AUDIOLOGY SERVICES O CRISTIANEERADESIREE documented in this encounter Visit Diagnoses Diagnosis Ear fullness, bilateral- Primary documented in this encounter Care Teams Preschool Education Director Relationship Specialty Start Date End Date Blake Lindsey MD [address] [place] [address] PCP - General 05/20/16 documented as of this encounter
--- OUTSIDE RECORDS SUMMARY | 2024-07-29 17:50 | XMS_ITS | Encounter Summary ---
Author Organization [facility] Health Address [address] [facility] [place] [address] Care Team Providers Care Automobile Mechanic Apprentice Name Role Phone Blake Lindsey MD Primary Care Provider [phone] Reason for Visit * Reason Onset Date Comments Results 04/02/2021 Encounter Details Date Type Department Care Team (Late st Contact Info) Description 04/02/2021 Telephone [facility] [address] [place], [place] [phone] Luz Meyer MD [address] [place], [place] [phone] Results Social History Tobacco Use Types Packs/Day [...] on filedocumented in this encounter Care Teams Automobile Mechanic Apprentice Relationship Specialty Start Date End Date Blake Lindsey MD [address] [place] [address] PCP - General 05/20/16 documented as of this encounter
--- OUTSIDE RECORDS SUMMARY | 2024-07-29 17:50 | XMS_ITS | Encounter Summary ---
Author Organization [facility] Health Address [address] [facility] [place] [address] Care Team Providers Care Track Dresser Name Role Phone Blake Lindsey MD Primary Care Provider [phone] Encounter Details Date Type Department Care Team (Late st Contact Info) Description 03/18/2021 Orders Only [facility], Critical Care and [facility] Medicine [address] [place] [phone] Luz Meyer MD [address] [place] [address] Chest pain, unspecified type; Hypoxia; Lower extremity [...] Edema documented in this encounter Care Teams Track Dresser Relationship Specialty Start Date End Date Blake Lindsey MD [address] [place] [address] PCP - General 05/20/16 documented as of this encounter
--- OUTSIDE RECORDS SUMMARY | 2024-07-29 17:50 | XMS_ITS | Encounter Summary ---
Author Organization [facility] Health Address [address] [place] [address] Care Team Providers Care Heat Treat Puller Name Role Phone Blake Lindsey MD Primary Care Provider [phone] Encounter Details Date Type Department Care Team (Late st Contact Info) Description 07/01/2021 3:30 PM FINAL ASSEMBLER Office Visit [facility] Pul[facility], Critical Care and Sleep Medicine [address] [place] [phone] Luz Meyer MD [address] [place] [address] NSIP (nonspecific interstitial pneumonia) ([facility]) (Primary Dx); Dyspnea, unspecified type Social History [...] No / Unsure 07/01/2021 1:04 PM FINAL ASSEMBLER documented as of this encounter Last Filed Vital Signs Vital Sign Reading Time Taken Comments Blood Pressure 116/86 07/01/2021 3:45 PM FINAL ASSEMBLER Pulse 92 07/01/2021 3:45 PM FINAL ASSEMBLER Temperature 36.5 ??C (97.7 ??F) 07/01/2021 3:45 PM CS T Respiratory Rate 21 07/01/2021 3:45 PM FINAL ASSEMBLER Oxygen Saturation 95% 07/01/2021 3:45 PM FINAL ASSEMBLER Inhaled Oxygen Concentration - - Weight 85.7 kg (189 lb) 07/01/2021 3:45 PM FINAL ASSEMBLER Height - - Body Mass Index 33.48 07/01/2021 1:07 PM FINAL ASSEMBLER documented in this encounter Functional Status [...] Luz Meyer MD - 07/01/2021 4:08 PM FINAL ASSEMBLER Previous oxygen desaturation study showed that the patient does not require oxygen at rest or with exertion. May stop using oxygen at this time. Dolly Meyer M.D. Pulmonary/Critical Care [facility] Division of Pulmonary, Critical Care and Sleep Medicine 07/01/2021 4:08 PM L ASSEMBLER documented in this encounter Progress Notes * Luz Meyer MD - 07/01/2021 1:18 PM CST Patient's Name: Lakeisha Alejandra Date of : 1970 Date of Visit: 03/18/2021 PULMONARY CLINIC NOTE The patient is a 50 year old female who is here to establish care with the [facility] for: 1. COPD 2. SOB 3. [...] ??? BIOPSY ??? HX SPINAL FUSION ??? VA FEMUR/KNEE SURG UNLISTED both knees ??? LUTHER [...] fluticasone propionate (FLONASE) 50 MCG/ACT nasal spray, [place] 2 sprays into each nostril once daily, [...] 0 ??? NARCAN 4 MG/0.1ML nasal spray, [place] 4 mg into each nostril as needed, Disp: , Rfl: ??? NYSTOP [id number] UNIT/GM powder, Apply 1 Dose to affected [...] and not in cardiopulmonary distress. On O2 [place] and anicteric conjunctivae. Vesicular breath sounds. No [...] of Isovue-[address] scans at [facility] are performed using dose optimization techniques as [...] Dolly Meyer M.D. Pulmonary and Critical Care [facility] Division of Pulmonary, Critical Care and Sleep Medicine 03/18/2021 L ASSEMBLER Associated attestation - Don Manuel MD - 07/11/2021 2:21 PM FINAL ASSEMBLER I saw and evaluated the patient. I reviewed the resident???s note and agree with findings and plan as documented in the resident???s note Don Manuel MD Division of Pulmonary, Critical Care, & Sleep Medicine [facility] P: [phone] 07/11/2021 , 2:21 PM documented in this encounter Plan of Treatment Scheduled Orders Name Type Priority Associated Diagnoses Orde r Schedule RHEUMATOID ARTHRITIS PANEL Lab Routine NSIP (nonspecific interstitial pneumonia) ([facility]) Dyspnea, unspecified type Ordered: 07/01/2021 CYCLIC CITRULLINATED PEPTIDE(CCP) AB IGG Lab Routine NSIP (nonspecific interstitial pneumonia) ([facility]) Dyspnea, unspecified type Ordered: 07/01/2021 ANCA VASCULITIS PANEL Lab Routine NSIP (nonspecific interstitial pneumonia) ([facility]) Dyspnea, unspecified type Ordered: 07/01/2021 LUPUS PANEL C (DSDNA,REGISTERED ACCOUNT ADMINISTRATOR,SM,SS-A,SS-B) Lab Routine NSIP (nonspecific interstitial pneumonia) ([facility]) Dyspnea, unspecified type Ordered: 07/01/2021 MYOSITIS ANTIBODY PANEL COMPREHENSIVE Lab Routine NSIP (nonspecific interstitial pneumonia) ([facility]) Dyspnea, unspecified type Ordered: 07/01/2021 documented as of this encounter Visit Diagnoses Diagnosis NSIP (nonspecific interstitial pneumonia) (HCC)- Primary Other specified alveolar and parietoalveolar pneumonopathies Dyspnea, unspecified type documented in this encounter Care Teams Heat Treat Puller Relationship Specialty Start Date End Date Blake Lindsey MD [address] [place] [address] PCP - General 05/20/16 documented as of this encounter
--- OUTSIDE RECORDS SUMMARY | 2024-07-29 17:50 | XMS_ITS | Encounter Summary ---
Author Organization [facility] Health Address [address] [place] [address] Care Team Providers Care Arc Furnace Operator Name Role Phone Blake Lindsey MD Primary Care Provider [phone] Encounter Details Date Type Department Care Team (Late st Contact Info) Description 04/02/2021 Orders Only [facility] [address] , [address] [place] [address] Luz Meyer MD [address] [place] [address] Social History Tobacco Use Types [...] on filedocumented in this encounter Care Teams Arc Furnace Operator Relationship Specialty Start Date End Date Blake Lindsey MD [address] [place] [address] PCP - General 05/20/16 documented as of this encounter
--- OUTSIDE RECORDS SUMMARY | 2024-07-29 17:50 | XMS_ITS | Encounter Summary ---
Author Organization [facility] Health Address [address] [place] [address] Care Team Providers Care Director Of Sustainable Design Name Role Phone Blake Lindsey MD Primary Care Provider Reason for Visit * Reason Comments Ear Problem chk Encounter Details Date Type Department Care Team (Late st Contact Info) Description 08/22/2020 10:00 AM FOUNDATION ASSISTANT Office Visit [facility] [address] [place] [phone] Nia Augustin, LEAD CARGO MOVER-TRADEMARK AFFIXER [address] [place] [address] Non-seasonal allergic rhinitis, unspecified trigger (Primary Dx); [...] 36.1 ??C (97 ??F) 08/22/2020 10:07 AM FOUNDATION ASSISTANT Respiratory Rate - - Oxygen Saturation - - Inhaled Oxygen Concentration - - Weight 90 kg (198 lb 6.4 oz) 08/22/2020 10:07 AM FOUNDATION ASSISTANT Height 160 cm (5' 3 ) 08/22/2020 10:07 AM FOUNDATION ASSISTANT Body Mass Index 35.14 08/22/2020 10:07 AM FOUNDATION ASSISTANT documented in this encounter Functional Status Functional [...] Instructions* Geoffrey Janet - 08/22/2020 10:13 AM FOUNDATION ASSISTANT Arlettek marie for visiting [facility] Otolaryngology - Head & Neck Surgery. We [...] an appointment, please call our office at [phone] Wednesday through Wednesday from 8:30 am to4:30 pm. You can also request a routine appointment through your [employer] account. ??? Prescription Refills Contact your pharmacy [...] call the medical exchangeat and ask the capsule filling machine operator to page the ENT physician distribution engineer. *Caller ID blocking service will need to be turned off for your call to be returned. We also specialize in Hearing Aids, Allergy testing, swallowing disorders, voice problems, cancer diagnosis, and so much more. Visit our website at [email or web address] for information about our practice and an interactive health encyclopedia. DATION ASSISTANT documented in this encounter Progress Notes * Nia Augustin, JUWAN-TRADEMARK AFFIXER - 08/22/2020 10:40 AM CST Images from the original note were not included. [facility] Department of Otolaryngology DATE OF VISIT: 08/22/2020 [...] fluticasone propionate (FLONASE) 50 MCG/ACT nasal spray [place] 2 sprays into each nostril once daily [...] tablet ??? NARCAN 4 MG/0.1ML nasal spray [place] 4 mg into each nostril as needed ??? NYSTOP [id number] UNIT/GM powder Apply 1 Dose to affected [...] care with my signing provider Dr. Tijerina DATION ASSISTANT * Janet Hale - 08/22/2020 10:13 AM CST Review of Systems Lakeisha reports the following:Ears: feel like she is under water muffled sound, inner ear is red,and painful DATION ASSISTANT documented in this encounter Plan of Treatment Not on file documented as of this encounter Visit Diagnoses Diagnosis Non-seasonal allergic rhinitis, unspecified trigger- Primary Right otitis media with effusion Nonsuppurative otitis media, not specified as acute or chronic Parotid nodule Other specified diseases of the salivary glands * Assessment & Plan Note - Nia Augustin APRN-CNP - 08/22/2020 10:47 AM FOUNDATION ASSISTANT Associated Problem(s): Parotid nodule Left sided parotid [...] further discuss FNA if indicated vs re-imaging DATION ASSISTANT * Assessment & Plan Note - Nia Augustin APRN-CNP - 08/22/2020 10:46 AM FOUNDATION ASSISTANT Associated Problem(s): Right otitis media with effusion (Deleted) Resolved; patient states she continues to have symptoms. Exam today showed bilateral TM and canals to be WNL. No obvious effusion. Her continued symptoms likely related to her TMJ. Again discussed management of TMJ. DATION ASSISTANT * Assessment & Plan Note - Nia Augustin APRN-CNP - 08/22/2020 10:45 AM FOUNDATION ASSISTANT Associated Problem(s): Non-seasonal allergic rhinitis Continue with previous recommendations. Patient states she has been compliant. Follow up as needed DATION ASSISTANT documented in this encounter Care Teams Director Of Sustainable Design Relationship Specialty Start Date End Date Blake Lindsey MD [address] [place] [phone] PCP - General 05/20/16 documented as of this encounter
--- OUTSIDE RECORDS SUMMARY | 2024-07-29 17:50 | XMS_ITS | Encounter Summary ---
Author Organization [facility] Health Address [address] [facility] [place] [address] Care Team Providers Care Lockstitch Front Edge Tape Sewer Name Role Phone Blake Lindsey MD Primary Care Provider [phone] Encounter Details Date Type Department Care Team (Latest Contact Info) Description 05/28/2021 1:17 PM CDT - 05/28/2021 2:29 PM CDT Hospital Encounter [facility] PFT [address] [place] [address] Don Manuel MD [address] [facility] 2L DIV OF PULMONARY/[place] [address] Discharge Disposition: Home or Self Care Social [...] bilateral nares 22 g 1 03/17/2021 NYSTOP [id number] UNIT/GM powder Apply 1 Dose to affected [...] fluticasone propionate (FLONASE) 50 MCG/ACT nasal spray [place] 2 sprays into each nostril once daily [...] 09/11/2020 07/15/2021 NARCAN 4 MG/0.1ML nasal spray [place] 4 mg into each nostril as needed [...] on filedocumented in this encounter Care Teams Lockstitch Front Edge Tape Sewer Relationship Specialty Start Date End Date Blake Lindsey MD [address] [place] [address] PCP - General 05/20/16 documented as of this encounter
--- OUTSIDE RECORDS SUMMARY | 2024-07-29 17:50 | XMS_ITS | Encounter Summary ---
Author Organization [facility] Health Address [address] [place] [address] Care Team Providers Care Swing Tender Name Role Phone Blake Lindsey MD Primary Care Provider [phone] Encounter Details Date Type Department Care Team (Late st Contact Info) Description 06/05/2021 Orders Only [facility] [address] Bryanna Gonzalez RN Hodgkin lymphoma, unspecified Hodgkin [...] (ABNORMAL) COMPREHENSIVE METABOLIC PANEL (06/05/2021 12:44 PM [facility]) BUN 19 7 - 26 mg/dL 06/05/2021 1:20 PM [facility] Creatinine 0.72 0.56 - 0.96 mg/dL 06/05/2021 1:20 PM [facility] Sodium 140 136 - 145 mmol/L 06/05/2021 1:20 PM [facility] Potassium 4.3 3.5 - 4.5 mmol/L 06/05/2021 1:20 PM [facility] Chloride 105 98 - 107 mmol/L 06/05/2021 1:20 PM [facility] CO2 22 22 - 29 mmol/L 06/05/2021 1:20 PM [facility] Glucose 103 70 - 115 mg/dL 06/05/2021 1:20 PM [facility] Calcium 10.4(H) 8.4 - 10.2 mg/dL 06/05/2021 1:20 PM [facility] Protein Total 8.0 6.0 - 8.3 g/dL 06/05/2021 1:20 PM [facility] Albumin 4.2 3.4 - 5.0 g/dL 06/05/2021 1:20 PM [facility] Bilirubin Total 0.6 0.2 - 1.2 mg/dL 06/05/2021 1:20 PM [facility] Alkaline Phosphatase 90 40 - 150 U/L 06/05/2021 1:20 PM [facility] ALT 18 5 - 55 U/L 06/05/2021 1:20 PM [facility] AST 20 5 - 34 U/L 06/05/2021 1:20 PM [facility] Anion Gap 17 8 - 18 06/05/2021 1:20 PM [facility] BUN/Creatinine Ratio 26(H) 7 - 23 06/05/2021 1:20 PM [facility] Osmolality Calculated 293 270 - 300 mOsm/kg 06/05/2021 1:20 PM [facility] Albumin/Globulin Ratio 1.1 1.1 - 2.3 06/05/2021 1:20 PM [facility] eGFR by CKD-EPI >90 >=90 mL/min/1.7 3 m2 06/05/2021 1:20 PM [facility] Blood BLOOD SPECIMEN / Unknown Lab Venipuncture / Unknown 06/05/2021 12:44 PM CDT 06/05/2021 12:53 PM CDT Castillo Max MD LAB - CHEMISTRY OR DERABLES [facility] [address] [place] [address] [phone] * (ABNORMAL) CBC WITH DIFFERENTIAL (06/05/2021 12:44 PM CDT) WBC 8.7 3.5 - 10.5 10? 3 /uL 06/05/2021 1:16 PM [facility] RBC 4.86 3.80 - 5.20 10? 6 /uL 06/05/2021 1:16 PM [facility] Hemoglobin 15.6 12.0 - 15.6 g/dL 06/05/2021 1:16 PM [facility] Hematocrit 46.0(H) 35.0 - 45.0 % 06/05/2021 1:16 PM [facility] MCV 94.7 80.7 - 98.3 fL 06/05/2021 1:16 PM [facility] MCH 32.1 26.7 - 34.0 pg 06/05/2021 1:16 PM [facility] MCHC 33.9 30.8 - 35.9 g/dL 06/05/2021 1:16 PM [facility] Platelet Count 231 150 - 400 10? 3 /uL 06/05/2021 1:16 PM [facility] RDW-SD 43.8 36.0 - 50.0 fL 06/05/2021 1:16 PM [facility] RDW-CV 12.7 11.2 - 14.8 % 06/05/2021 1:16 PM [facility] MPV 8.8(L) 9.4 - 12.9 fL 06/05/2021 1:16 PM [facility] nRBC Absolute 0.00 0 10? 3 /uL 06/05/2021 1:16 PM [facility] nRBC Auto 0.0 0 /100 WBC 06/05/2021 1:16 PM [facility] Neutrophils % 65.8 35.0 - 70.0 % 06/05/2021 1:16 PM [facility] Lymphocytes % 22.8 20.0 - 43.0 % 06/05/2021 1:16 PM [facility] Monocytes % 6.4 5.0 - 13.0 % 06/05/2021 1:16 PM [facility] Eosinophils % 4.5 0.0 - 6.0 % 06/05/2021 1:16 PM [facility] Basophil % 0.3 0.0 - 2.0 % 06/05/2021 1:16 PM [facility] Neutrophils Absolute 5.7 1.6 - 7.0 10? 3 /uL 06/05/2021 1:16 PM [facility] Lymphocyte Absolute 2.0 1.1 - 3.9 10? 3 /uL 06/05/2021 1:16 PM [facility] Monocytes Absolute 0.56 0.26 - 1.07 10? 3 /uL 06/05/2021 1:16 PM [facility] Eosinophils Absolute 0.39 0.00 - 0.47 10? 3 /uL 06/05/2021 1:16 PM [facility] Basophils Absolute 0.03 0.00 - 0.08 10? 3 /uL 06/05/2021 1:16 PM CDT [facility] Immature Granulocytes % 0.2 0.0 - 1.0 % 06/05/2021 1:16 PM CDT [facility] Immature Granulocytes Absolute 0.02 06/05/2021 1:16 PM CDT [facility] Blood BLOOD SPECIMEN / Unknown Lab Venipuncture / Unknown 06/05/2021 12:44 PM CDT 06/05/2021 12:53 PM CDT Castillo Max MD LAB - HEMATOLOGY O RDERABLES Performing Organization Address City/State/[facility] Co de Phone Number [facility] [address] [place] [phone], [facility] [phone] documented in this encounter Visit Diagnoses Diagnosis Hodgkin lymphoma, unspecified Hodgkin lymphoma type, unspecified body region (HCC)- Primary documented in this encounter Care Teams Swing Tender Relationship Specialty Start Date End Date Blake Lindsey MD [address] [place] [phone] PCP - General 05/20/16 documented as of this encounter
--- OUTSIDE RECORDS SUMMARY | 2024-07-29 17:50 | XMS_ITS | Encounter Summary ---
Author Organization [facility] Health Address [address] [place] [address] Care Team Providers Care Door Attendant Name Role Phone Blake Lindesy MD Primary Care Provider [phone] Encounter Details Date Type Department Care Team [...] on filedocumented in this encounter Care Teams Door Attendant Relationship Specialty Start Date End Date Blake Lindsey MD [address] [place] [address] PCP - General 05/20/16 documented as of this encounter
--- OUTSIDE RECORDS SUMMARY | 2024-07-29 17:50 | XMS_ITS | Encounter Summary ---
Author Organization [facility] Health Address [address] [facility] [place] [address] Care Team Providers Care Rug Inspector Helper Name Role Phone Blake Lindsey MD Primary Care Provider [phone] Encounter Details Date Type Department Care Team (Late st Contact Info) Description 06/06/2021 Orders Only [facility] [address] Bryanna Gonzalez RN Ear pain, right ; [...] ear documented in this encounter Care Teams Rug Inspector Helper Relationship Specialty Start Date End Date Blake Lindsey MD [address] [place] [address] PCP - General 05/20/16 documented as of this encounter
--- OUTSIDE RECORDS SUMMARY | 2024-07-29 17:50 | XMS_ITS | Encounter Summary ---
Author Organization [facility] Health Address [address] [facility] [place] [address] Care Team Providers Care Sales Advisor Name Role Phone Blake Lindsey MD Primary Care Provider [phone] Reason for Visit * Reason Comments Ear Problem Encounter Details Date Type Department Care Team (Late st Contact Info) Description 07/01/2021 2:45 PM TOBACCO BALER Office Visit [facility] [address] [place] [address], [place] [address] Jah Ochoa MD [address] [place] [address] [place] [address] Right ear pain (Primary Dx); Acute pharyngitis, [...] COVID-19? No / Unsure 07/01/2021 1:04 PM TOBACCO BALER documented as of this encounter Last Filed Vital Signs Vital Sign Reading Time Taken Comments Blood Pressure 111/64 07/01/2021 1:07 PM TOBACCO BALER Pulse 106 07/01/2021 1:07 PM TOBACCO BALER Temperature - - Respiratory Rate - - Oxygen Saturation - - Inhaled Oxygen Concentration - - Weight 85.7 kg (189 lb) 07/01/2021 1:07 PM TOBACCO BALER Height 160 cm (5' 3 ) 07/01/2021 1:07 PM TOBACCO BALER Body Mass Index 33.48 07/01/2021 1:07 PM TOBACCO BALER documented in this encounter Functional Status Functional [...] Instructions* Geoffrey Janet - 07/01/2021 1:08 PM TOBACCO BALER Thank you for visiting [facility] Otolaryngology - Head & Neck Surgery. We [...] an appointment, please call our office at [phone] Wednesday through Wednesday from 8:30 am to4:30 pm. You can also request a routine appointment through your [employer] account. ??? Prescription Refills Contact your pharmacy [...] call the medical exchangeat and ask the rotary dryer operator to page the ENT physician court recording monitor. *Caller ID blocking service will need to be turned off for your call to be returned. We also specialize in Hearing Aids, Allergy testing, swallowing disorders, voice problems, cancer diagnosis, and so much more. Visit our website at [email or web address] for information about our practice and an interactive health encyclopedia. CCO BALER documented in this encounter Progress Notes * [...] been previously seen by Nia Augustin, ENT DEVELOPMENT TECHNOLOGIST for this 08/22/20. At that time had [...] fluticasone propionate (FLONASE) 50 MCG/ACT nasal spray [place] 2 sprays into each nostril once daily [...] 0 ??? NARCAN 4 MG/0.1ML nasal spray [place] 4 mg into each nostril as needed (Patient not taking: Reported on 07/01/2021) ??? NYSTOP [id number] UNIT/GM powder Apply 1 Dose to affected [...] discomfort she experiences in her right ear. CCO BALER * Janet Hale - 07/01/2021 1:08 PM CST Review of Systems Lakeisha reports the following:Ears: ear pain CCO BALER documented in this encounter Procedure Notes * Sharan Mike MD - 07/01/2021 5:16 PM CSTAssociated Order(s): PROC ENDOSCOPY-LARYNX Procedure(s): KS LARYNGOSCOPY,FLEX FIBER,DIAGNOSTIC Pre-Procedure Diagnose(s): Right ear pain [...] portions of the entirety of the procedure. CCO BALER documented in this encounter Plan of Treatment Scheduled Orders Name Type Priority Associated Diagnoses Orde r Schedule CULTURE THROAT Microbiology Routine Acute pharyngitis, unspecified etiology Ordered: 07/01/2021 documented as of this encounter Procedures Procedure Name Priority Date/Time Associated Diagnosis Comments [place] LARYNGOSCOPY,FLEX FIBER,DIAGNOSTIC Routine 07/01/2021 5:16 PM TOBACCO BALER Right ear pain documented in this encounter Results * KS LARYNGOSCOPY,FLEX FIBER,DIAGNOSTIC (07/01/2021 5:16 PM TOBACCO BALER) Narrative Sharan Mike MD - 07/01/2021 5:16 PM TOBACCO BALER Sharan Mike MD ? 07/01/2021 ??7:16 PM [...] etiology documented in this encounter Care Teams Sales Advisor Relationship Specialty Start Date End Date Blake Lindsey MD [address] [place] [address] PCP - General 05/20/16 documented as of this encounter
--- OUTSIDE RECORDS SUMMARY | 2024-07-29 17:50 | XMS_ITS | Encounter Summary ---
Author Organization [facility] Health Address [address] [facility] [place] [address] Care Team Providers Care Crotch Breaker Name Role Phone Blake Lindsey MD Primary Care Provider [phone] Encounter Details Date Type Department Care Team (Latest Contact Info) Description 03/28/2021 9:30 AM CDT - 03/28/2021 10:59 AM CDT Hospital Encounter [facility] PFT [address] [place] [address] Don Manuel MD [address] [facility] 2L DIV OF PULMONARY/[place] [address] Discharge Disposition: Home or Self Care Social [...] bilateral nares 22 g 1 03/17/2021 NYSTOP [id number] UNIT/GM powder Apply 1 Dose to affected [...] fluticasone propionate (FLONASE) 50 MCG/ACT nasal spray [place] 2 sprays into each nostril once daily [...] 09/11/2020 07/15/2021 NARCAN 4 MG/0.1ML nasal spray [place] 4 mg into each nostril as needed [...] Costa MD - 03/28/2021 2:53 PM CDT [facility] DEPARTMENT OF PULMONARY, CRITICAL CARE, AND SLEEP MEDICINE OXYGEN TITRATION STUDY Lakeisha M Justyn 03/28/2021 INTERPRETATION The test was [...] and agree with the interpretation by the Cable Splicer. Manjinder Costa M.D. Ekg Tech of Internal Medicine Division of Pulmonary, Critical Care and Sleep Medicine [facility] Narrative Manjinder Costa MD - 03/28/2021 2:53 PM CDT Elicia Lucero I., DO ? 03/28/2021 ??6:06 PM Don Manuel MD PFT ORDERABLES * SIX MINUTE WALK (03/28/2021 2:52 PM CDT) Impressions Manjinder Costa MD - 03/28/2021 2:52 PM CDT [facility] DEPARTMENT OF PULMONARY, CRITICAL CARE, AND [...] and agree with the interpretation by the Cable Splicer. Manjinder Costa M.D. Ekg Tech of Internal Medicine Division of Pulmonary, Critical Care and Sleep Medicine [facility] Narrative Manjinder Costa MD - 03/28/2021 2:52 PM CDT Elicia Lucero I., DO ? 03/28/2021 ??6:06 PM Don Manuel MD RESPIRATORY THERAPY ORDERABLES documented in this encounter Visit Diagnoses Diagnosis Hypoxia Hypoxemia Uncomplicated asthma, unspecified asthma severity, unspecified whether persistent (HCC) Chronic obstructive pulmonary disease, unspecified COPD type (HCC) documented in this encounter Care Teams Crotch Breaker Relationship Specialty Start Date End Date Blake Lindsey MD [address] [place] [address] PCP - General 05/20/16 documented as of this encounter
--- OUTSIDE RECORDS SUMMARY | 2024-07-29 17:50 | XMS_ITS | Encounter Summary ---
Author Organization [facility] Health Address [address] [place] [address] Care Team Providers Care Mud Analysis Operator Name Role Phone Blake Lindsey MD Primary Care Provider [phone] Reason for Visit * Reason Comments Ear Problem Encounter Details Date Type Department Care Team (Late st Contact Info) Description 07/18/2020 10:00 AM QUARTZ ORIENTATOR Office Visit [facility] [address] [place] [address] Nia Augustin, POOL TECHNICIAN-ERRAND RUNNER [address] [place] [address] Right otitis media with effusion (Primary Dx) [...] Comments Blood Pressure 129/72 07/18/2020 10:09 AM QUARTZ ORIENTATOR Pulse 125 07/18/2020 10:09 AM QUARTZ ORIENTATOR Temperature - - Respiratory Rate - - Oxygen Saturation - - Inhaled Oxygen Concentration - - Weight 91.6 kg (202 lb) 07/18/2020 10:09 AM QUARTZ ORIENTATOR Height 160 cm (5' 3 ) 07/18/2020 10:09 AM QUARTZ ORIENTATOR Body Mass Index 35.78 07/18/2020 10:09 AM QUARTZ ORIENTATOR documented in this encounter Functional Status Functional [...] Patient Instructions* ElinMarky - 07/18/2020 10:13 AM QUARTZ ORIENTATOR Thank you for visiting [facility] Otolaryngology - Head & Neck [...] an appointment, please call our office at [phone] Wednesday through Wednesday from 8:30 am to4:30 pm. You can also request a routine appointment through your [employer] account. ??? Prescription Refills Contact your pharmacy [...] call the medical exchangeat and ask the heatset winder operator to page the ENT physician electronic lab technician. *Caller ID blocking service will need to be turned off for your call to be returned. We also specialize in Hearing Aids, Allergy testing, swallowing disorders, voice problems, cancer diagnosis, and so much more. Visit our website at [email or web address] for information about our practice and an interactive health encyclopedia. Thank you for visiting [facility] Otolaryngology - Head & Neck [...] an appointment, please call our office at [phone] Wednesday through Wednesday from 8:00 am to4:30 pm. You can also request a routine appointment through your [employer] account. ??? Prescription Refills Contact your pharmacy [...] the medical exchange at and ask the heatset winder operator to page the ENT physician electronic lab technician. *Caller ID blocking service will need to be turned off for your call to be returned. We also specialize in Hearing Aids, Allergy testing, swallowing disorders, voice problems, cancer diagnosis, and so much more. Visit our website at [email or web address] for information about our practice and an interactive health encyclopedia. Thank you for visiting [facility] Otolaryngology - Head & Neck [...] an appointment, please call our office at [phone] Wednesday through Wednesday from 8:00 am to4:30 pm. You can also request a routine appointment through your [employer] account. ??? Prescription Refills Contact your pharmacy [...] the medical exchange at and ask the heatset winder operator to page the ENT physician electronic lab technician. *Caller ID blocking service will need to be turned off for your call to be returned. We also specialize in Hearing Aids, Allergy testing, swallowing disorders, voice problems, cancer diagnosis, and so much more. Visit our website at [email or web address] for information about our practice and an interactive health encyclopedia. TZ ORIENTATOR documented in this encounter Progress Notes * Nia Augustin, JUWAN-ERRAND RUNNER - 07/18/2020 10:41 AM CST [facility] Department of Otolaryngology DATE OF [...] fluticasone propionate (FLONASE) 50 MCG/ACT nasal spray [place] 2 sprays into each nostril once daily [...] days ??? NARCAN 4 MG/0.1ML nasal spray [place] 4 mg into each nostril as needed ??? NYSTOP 355707 UNIT/GM powder Apply 1 Dose to affected [...] care with my signing provider Dr. Tijerina TZ ORIENTATOR * Vinita Worthington - 07/18/2020 10:13 AM CST Review of Systems Lakeisha reports the following:Ears: ear pain, ear swelling Throat: hoarse voice TZ ORIENTATOR documented in this encounter Plan of Treatment Not on file documented as of this encounter Visit Diagnoses Diagnosis Right otitis media with effusion- Primary Nonsuppurative otitis media, not specified as acute or chronic * Assessment & Plan Note - Nia Augustin APRN-CNP - 07/18/2020 11:26 AM QUARTZ ORIENTATOR Associated Problem(s): Right otitis media with effusion [...] laryngoscopy will be performed for further evaluation. TZ ORIENTATOR documented in this encounter Care Teams Mud Analysis Operator Relationship Specialty Start Date End Date Blake Lindsey MD [address] [place] [address] PCP - General 05/20/16 documented as of this encounter
--- OUTSIDE RECORDS SUMMARY | 2024-07-29 17:50 | XMS_ITS | Encounter Summary ---
Author Organization [facility] Health Address [address] [place] [address] Care Team Providers Care Axminster Rug Setter Name Role Phone Blake Lindsey MD Primary Care Provider [phone] Encounter Details Date Type Department Care Team (Late st Contact Info) Description 08/08/2021 Orders Only [facility] [address] [place], [place] [id number] Lowell Pop MD [address] DIV OF PULMONARY/[place] [address] Social History Tobacco Use Types Packs/Day Years [...] Pop MD - 08/08/2021 12:14 PM CST [facility] Sleep Disorders [facility], First Floor [address] [place] [address] Telephone : [phone] Medical Records OVERNIGHT [...] to . Lowell Pop MD, MSP, FCCP, [facility] Line Servicer, [facility] Sleep [facility] [place] Professor of Internal Medicine Adjunct Youth Minister of Neurology Division of Pulmonary, Critical Care, and Sleep Medicine [facility] This note was electronically signed on 08/08/2021. MANUFACTURING COORDINATOR documented in this encounter Plan of Treatment Not on file documented as of this encounter Visit Diagnoses Not on filedocumented in this encounter Care Teams Axminster Rug Setter Relationship Specialty Start Date End Date Blake Lindsey MD [address] [place] [address] PCP - General 05/20/16 documented as of this encounter
--- OUTSIDE RECORDS SUMMARY | 2024-07-29 17:50 | XMS_ITS | Encounter Summary ---
Author Organization [facility] Health Address [address] [facility] [address] [place] [address] Care Team Providers Care Mechanic Marine Engine Name Role Phone Blake Lindsey MD Primary Care Provider [phone] Reason for Referral * Radiology Services (Routine) - Closed Specialty Diagnoses / Procedures Referred By Ariel cano Referred To Contact CT Scan Diagnoses Lesion of parotid gland Procedures CT NECK SOFT TISSUE W Castillo Lozoya MD [address] [place] [address] [facility] [address] [place] [id number] Referral ID Status Reason Start Date Expiration Date Visits Re quested Visits Authorized [id number] Closed 06/05/2021 06/05/2022 1 1 D PACKER Reason for Visit * Radiology Services (Routine) - Closed Specialty Diagnoses / Procedures Referred By Ariel cano Referred To Contact CT Scan Diagnoses Lesion of parotid gland Procedures CT NECK SOFT TISSUE W Castillo Lozoya MD [address] [place] [address] [facility] [address] [place] [address] Referral ID Status Reason Start Date Expiration Date Visits Re quested Visits Authorized [id number] Closed 06/05/2021 06/05/2022 1 1 Encounter Details Date Type Department Care Team (Latest Contact Info) Description 07/01/2021 1:00 PM BREAD PACKER - 07/01/2021 4:22 PM BREAD PACKER Hospital Encounter [facility] CAT SCAN [address] [place] [address] Castillo Max MD [address] [place] [address] Discharge Disposition: Home or Self Care Social [...] COVID-19? No / Unsure 07/01/2021 1:04 PM BREAD PACKER documented as of this encounter Functional Status [...] bilateral nares 22 g 1 03/17/2021 NYSTOP 634383 UNIT/GM powder Apply 1 Dose to affected [...] fluticasone propionate (FLONASE) 50 MCG/ACT nasal spray [place] 2 sprays into each nostril once daily [...] 09/11/2020 07/15/2021 NARCAN 4 MG/0.1ML nasal spray [place] 4 mg into each nostril as needed [...] TISSUE W CONT Routine 07/01/2021 1:59 PM BREAD PACKER Lesion of parotid gland documented in this encounter Results * CT NECK SOFT TISSUE W CONT (07/01/2021 1:59 PM BREAD PACKER) Anatomical Region Laterality Modality Head Computed Tomogra phy 07/01/2021 3:50 PM BREAD PACKER Impressions 07/01/2021 4:36 PM BREAD PACKER IMPRESSION: 1. Given the technical differences, the [...] 4:36 PM . Narrative 07/01/2021 4:[address] SOFT TISSUE NECK WITH INTRAVENOUS CONTRAST. [...] $ Given - Contrast 07/01/2021 2:00 PM BREAD PACKER 100 mL documented in this encounter Care Teams Mechanic Marine Engine Relationship Specialty Start Date End Date Blake Lindsey MD [address] [place] [address] PCP - General 05/20/16 documented as of this encounter
--- OUTSIDE RECORDS SUMMARY | 2024-07-29 17:50 | XMS_ITS | Encounter Summary ---
Author Organization [facility] Health Address [address] [facility] [place] [address] Care Team Providers Care Process Manufacturing Engineer Name Role Phone Blake Lindsey MD Primary Care Provider [phone] Reason for Visit * Reason Onset Date Comments Returned Call 09/26/2020 Encounter Details Date Type Department Care Team (Late st Contact Info) Description 09/26/2020 Telephone [facility] [address] [place] [phone] Nia Augustin, CONSTRUCTION REP-PRIMER SUPERVISOR [address] [place] [address] Returned Call Social History Tobacco Use Types [...] Nia Augustin APRN-CNP - 09/26/2020 10:53 AM NURSE PLASTICS Patient with recurrent symptoms. Will send in an antibiotic to treat her symptoms. Also discussed continuing her nasal spray and sinus rinses. Because of patients ongoing symptoms and findings of a parotid nodule imaging will be ordered and scheduled for further evaluation. Patient to follow up after imaging. E PLASTICS documented in this encounter Plan of Treatment Not on file documented as of this encounter Visit Diagnoses Not on filedocumented in this encounter Care Teams Process Manufacturing Engineer Relationship Specialty Start Date End Date Blake Lindsey MD [address] [place] [address] PCP - General 05/20/16 documented as of this encounter
--- OUTSIDE RECORDS SUMMARY | 2024-07-29 17:50 | XMS_ITS | Encounter Summary ---
Author Organization [facility] Health Address [address] [facility] [place] [address] Care Team Providers Care Space Control Supervisor Name Role Phone Blake Lindsey MD Primary Care Provider [phone] Encounter Details Date Type Department Care Team [...] on filedocumented in this encounter Care Teams Space Control Supervisor Relationship Specialty Start Date End Date Blake Lindsey MD [address] [place] [address] PCP - General 05/20/16 documented as of this encounter
--- OUTSIDE RECORDS SUMMARY | 2024-07-29 17:50 | XMS_ITS | Encounter Summary ---
Author Organization [facility] Health Address [address] [place] [address] Care Team Providers Care Coat Operator Name Role Phone Blake Lindsey MD Primary Care Provider [phone] Encounter Details Date Type Department Care Team (Latest Contact Info) Description 07/01/2021 4:23 PM REGULATORY MANAGER - 07/01/2021 11:59 PM [facility] Hospital Encounter [facility] OP DRAW STATION [address] [place] [address] Castillo Max MD [address] [place] [address] [place] [address] Discharge Disposition: Home or Self Care Social [...] COVID-19? No / Unsure 07/01/2021 1:04 PM REGULATORY MANAGER documented as of this encounter Functional [...] bilateral nares 22 g 1 03/17/2021 NYSTOP [id number] UNIT/GM powder Apply 1 Dose to affected [...] fluticasone propionate (FLONASE) 50 MCG/ACT nasal spray [place] 2 sprays into each nostril once daily [...] 09/11/2020 07/15/2021 NARCAN 4 MG/0.1ML nasal spray [place] 4 mg into each nostril as needed [...] STREP GROUP A Routine 07/01/2021 4:38 PM REGULATORY MANAGER Acute pharyngitis, unspecified etiology documented in this encounter Results * CULTURE STREP GROUP A (07/01/2021 4:38 PM REGULATORY MANAGER) Culture Negative for beta-hemolytic Streptococcus Group A NEVIN 07/03/2021 9:52 AM REGULATORY MANAGER [facility] MICROBIOLOGY Microbiology ENTIRE THROAT (SURFACE REGION OF NECK) / Unknown Collection / Unknown 07/01/2021 4:38 PM REGULATORY MANAGER 07/01/2021 5:04 PM REGULATORY MANAGER Jah Ochoa MD LAB - MICROBIOLOGY O RDERABLES [facility] MICROBIOLOGY [address] [place] [address], [facility] [phone] documented in this encounter Visit Diagnoses Diagnosis Acute pharyngitis, unspecified etiology- Primary documented in this encounter Care Teams Coat Operator Relationship Specialty Start Date End Date Blake Lindsey MD [address] [place] [address] PCP - General 05/20/16 documented as of this encounter
--- OUTSIDE RECORDS SUMMARY | 2024-07-29 17:50 | XMS_ITS | Encounter Summary ---
Author Organization [facility] Health Address [address] [place] [address] Care Team Providers Care Clock And Watch Hands Dipper Name Role Phone Blake Lindsey MD Primary Care Provider [phone] Encounter Details Date Type Department Care Team (Latest Contact Info) Description 03/28/2021 11:00 AM CDT - 03/28/2021 11:59 PM CDT Hospital Encounter [facility]FT [address] [place] [address] Don Manuel MD [address] [facility] 2L DIV OF PULMONARY/[place] [address] Discharge Disposition: Home or Self Care Social [...] bilateral nares 22 g 1 03/17/2021 NYSTOP 676696 UNIT/GM powder Apply 1 Dose to affected [...] fluticasone propionate (FLONASE) 50 MCG/ACT nasal spray [place] 2 sprays into each nostril once daily [...] 09/11/2020 07/15/2021 NARCAN 4 MG/0.1ML nasal spray [place] 4 mg into each nostril as needed [...] on filedocumented in this encounter Care Teams Clock And Watch Hands Dipper Relationship Specialty Start Date End Date Blake Lindsey MD [address] [place] [address] PCP - General 05/20/16 documented as of this encounter
--- OUTSIDE RECORDS SUMMARY | 2024-07-29 17:50 | XMS_ITS | Encounter Summary ---
Author Organization [facility] Health Address [address] [place] [address] Care Team Providers Care Pet Sitter Name Role Phone Blake Lindsey MD Primary Care Provider [phone] Encounter Details Date Type Department Care Team (Latest Contact Info) Description 06/05/2021 12:30 PM CDT - 06/05/2021 11:59 PM CDT Hospital Encounter [facility]CER CARE DRAWSTATION [address] [facility], 2nd [place] [address] Discharge Disposition: Home or Self Care Social [...] bilateral nares 22 g 1 03/17/2021 NYSTOP 917033 UNIT/GM powder Apply 1 Dose to affected [...] fluticasone propionate (FLONASE) 50 MCG/ACT nasal spray [place] 2 sprays into each nostril once daily [...] 09/11/2020 07/15/2021 NARCAN 4 MG/0.1ML nasal spray [place] 4 mg into each nostril as needed [...] 7 - 26 mg/dL 06/05/2021 1:20 PM [facility] Creatinine 0.72 0.56 - 0.96 mg/dL 06/05/2021 1:20 PM [facility] Sodium 140 136 - 145 mmol/L 06/05/2021 1:20 PM [facility] Potassium 4.3 3.5 - 4.5 mmol/L 06/05/2021 1:20 PM [facility] Chloride 105 98 - 107 mmol/L 06/05/2021 1:20 PM [facility] CO2 22 22 - 29 mmol/L 06/05/2021 1:20 PM [facility] Glucose 103 70 - 115 mg/dL 06/05/2021 1:20 PM [facility] Calcium 10.4(H) 8.4 - [...] Max MD LAB - CHEMISTRY OR DERABLES [facility] [address] [place] [address], [facility] [phone] * (ABNORMAL) CBC WITH DIFFERENTIAL (06/05/2021 12:44 [...] 10? 3 /uL 06/05/2021 1:16 PM CDT [facility] Lymphocyte Absolute 2.0 1.1 - 3.9 10? 3 /uL 06/05/2021 1:16 PM CDT [facility] Monocytes Absolute 0.56 0.26 - 1.07 10? 3 /uL 06/05/2021 1:16 PM CDT [facility] Eosinophils Absolute 0.39 0.00 - 0.47 10? 3 /uL 06/05/2021 1:16 PM CDT [facility] Basophils Absolute 0.03 0.00 - 0.08 10? 3 /uL 06/05/2021 1:16 PM CDT [facility] Immature Granulocytes % 0.2 0.0 - 1.0 % 06/05/2021 1:16 PM CDT [facility] Immature Granulocytes Absolute 0.02 06/05/2021 1:16 PM CDT [facility] Blood BLOOD SPECIMEN / Unknown Lab Venipuncture / Unknown 06/05/2021 12:44 PM CDT 06/05/2021 12:53 PM CDT Castillo Max MD LAB - HEMATOLOGY O RDERABLES Performing Organization Address City/State/[facility] Co de Phone Number [facility] [address] [place] [address], [facility] [phone] documented in this encounter Visit Diagnoses Diagnosis Hodgkin lymphoma, unspecified Hodgkin lymphoma type, unspecified body region (HCC) documented in this encounter Care Teams Pet Sitter Relationship Specialty Start Date End Date Blake Lindsey MD [address] [place] [address] PCP - General 05/20/16 documented as of this encounter
--- OUTSIDE RECORDS SUMMARY | 2024-07-29 17:50 | XMS_ITS | Encounter Summary ---
Author Organization [facility] Address [address] [facility] [place] [address] Care Team Providers Care Logging Superintendent Name Role Phone Blake Lindsey MD Primary Care Provider [phone] Encounter Details Date Type Department Care Team (Late st Contact Info) Description 10/25/2020 Orders Only [facility] - COVID Vaccine [address] [place] [phone] Dave Esposito MD [address] [place] [address] Need for vaccination Social History Tobacco Use [...] disease documented in this encounter Care Teams Logging Superintendent Relationship Specialty Start Date End Date Blake Lindsey MD [address] [place] [address] PCP - General 05/20/16 documented as of this encounter
--- OUTSIDE RECORDS SUMMARY | 2024-07-29 17:50 | XMS_ITS | Encounter Summary ---
Author Organization [facility] Health Address [address] [facility] [place] [address] Care Team Providers Care Doll Eye Setter Name Role Phone Blake Lindsey MD Primary Care Provider [phone] Encounter Details Date Type Department Care Team [...] on filedocumented in this encounter Care Teams Doll Eye Setter Relationship Specialty Start Date End Date Blake Lindsey MD [address] [place] [address] PCP - General 05/20/16 documented as of this encounter
--- OUTSIDE RECORDS SUMMARY | 2024-07-29 17:50 | XMS_ITS | Encounter Summary ---
Author Organization [facility] Health Address [address] [facility] [place] [address] Care Team Providers Care Computer Bookkeeper Name Role Phone Blake Lindsey MD Primary Care Provider [phone] Reason for Visit * Reason Onset Date Comments Results 04/08/2021 Encounter Details Date Type Department Care Team (Late st Contact Info) Description 04/08/2021 Telephone [facility] [address], [address] [place] [address] Luz eMyer MD [address] [place], [place] [id number] Results Social History Tobacco Use Types Packs/Day [...] next Will plan for prednisone 40mg qd [id number] then taper HRCT in 3 months to reevaluate changes documented in this encounter Plan of Treatment Not on file documented as of this encounter Visit Diagnoses Diagnosis 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
--- OUTSIDE RECORDS SUMMARY | 2024-07-29 17:50 | XMS_ITS | Encounter Summary ---
Author Organization [facility] Health Address [address] [facility] [place] [address] Care Team Providers Care Piano Case Maker Name Role Phone Blake Lindsey MD Primary Care Provider [phone] Reason for Visit * Radiology Services (Routine) - Closed Specialty Diagnoses / Procedures Referred By Contac t Referred To Contact Echosonography Diagnoses Chest pain, unspecified type Hypoxia Lower extremity edema Procedures ECHO STRESS W DOBUTAMINE Don Manuel MD [address] [facility] 2L DIV OF PULMONARY/[place] [address] [facility] Echo [address] [place] [address] Referral ID Status Reason Start Date Expiration Date Visits Re quested Visits Authorized [id number] Closed 03/18/2021 03/18/2022 1 1 Encounter Details Date Type Department Care Team (Latest Contact Info) Description 03/28/2021 7:58 AM CDT - 03/28/2021 9:29 AM CDT Hospital Encounter [facility] ECHO [address] [place] [address] Don Manuel MD [address] [facility] 2L DIV OF PULMONARY/[place] [address] Discharge Disposition: Home or Self Care Social [...] bilateral nares 22 g 1 03/17/2021 NYSTOP 271139 UNIT/GM powder Apply 1 Dose to affected [...] fluticasone propionate (FLONASE) 50 MCG/ACT nasal spray [place] 2 sprays into each nostril once daily [...] 09/11/2020 07/15/2021 NARCAN 4 MG/0.1ML nasal spray [place] 4 mg into each nostril as needed [...] . IV NSL dc'd. Pt taken to [facility] area for PFT's and PFT lab notified that stress testing was completed. . * Alka Park RN - 03/27/2021 5:47 PM CDTProcedure(s): ECHO STRESS W DOBUTAMINE Reminder call placed to pt regarding upcoming echo appointment. No answer. VM message left :Please register in the [facility] 15mins prior to your first scheduled appointment, [...] mL documented in this encounter Care Teams Piano Case Maker Relationship Specialty Start Date End Date Blake Lindsey MD [address] [place] [address] PCP - General 05/20/16 documented as of this encounter
--- OUTSIDE RECORDS SUMMARY | 2024-07-29 17:50 | XMS_ITS | Encounter Summary ---
Author Organization [facility] Health Address [address] [facility] [place] [address] Care Team Providers Care Field Mechanic/Site Lead Name Role Phone Blake Lindsey MD Primary Care Provider [phone] Reason for Visit * Reason Onset Date Comments MEDICATION REFILL 03/17/2021 Mupirocin Encounter Details Date Type Department Care Team (Late st Contact Info) Description 03/17/2021 Refill [facility] [facility], [place] [phone] Chino Enriquez MD [address] [place] [address] [place] [address] MEDICATION REFILL (Mupirocin) Social History Tobacco Use [...] filedocumented in this encounter Care Teams Field Mechanic/Site Lead Relationship Specialty Start Date End Date Blake Lindsey MD [address] [place] [address] PCP - General 05/20/16 documented as of this encounter
--- OUTSIDE RECORDS SUMMARY | 2024-07-29 17:50 | XMS_ITS | Encounter Summary ---
Author Organization [facility] Health Address [address] [facility] [place] [address] Care Team Providers Care Addressograph Operator Name Role Phone Blake Lindsey MD Primary Care Provider [phone] Encounter Details Date Type Department Care Team [...] COVID-19? No / Unsure 07/01/2021 1:04 PM FACING CUTTING MACHINE OPERATOR documented as of this encounter Functional [...] on filedocumented in this encounter Care Teams Addressograph Operator Relationship Specialty Start Date End Date Blake Lindsey MD [address] [place] [address] PCP - General 05/20/16 documented as of this encounter
--- OUTSIDE RECORDS SUMMARY | 2024-07-29 17:50 | XMS_ITS | Encounter Summary ---
Author Organization [facility] Health Address [address] [place] [address] Care Team Providers Care Deliverer Pharmacy Name Role Phone Blake Lindsey MD Primary Care Provider [phone] Reason for Referral * Radiology Services (Routine) - Closed Specialty Diagnoses / Procedures Referred By Louac t Referred To Contact CT Scan Diagnoses Chronic respiratory failure with hypoxia (HCC) Acute respiratory failure due to COVID-19 (HCC) Procedures CT CHEST WO CONT AND Joe Sands MD [address] [place] [address] [place] [address] [facility] [address] [place] [address] Referral ID Status Reason Start Date Expiration Date Visits Re quested Visits Authorized [id number] Closed 04/15/2021 04/15/2022 1 1 Reason for Visit * Reason Comments Follow-up Results Encounter Details Date Type Department Care Team (Late st Contact Info) Description 04/15/2021 1:00 PM CDT Office Visit [facility] [address] [facility] [place] [address] Luz Meyer MD [address] [place] [address] Chronic obstructive pulmonary disease, unspecified COPD type [...] Patricia Betancur - 04/15/2021 1:26 PM CDT [facility] General Internal Medicine is committed to providing [...] for your doctor, the office phone is [phone]. You will be given options to get [...] primary care provider. Please call us at [phone], option 1, then option 1 in the morning you would like to be seen. Our fax number is [phone]. Instructions for reaching the practice after office hours For urgent concerns that cannot wait until phone lines are open on the next business day, please call [phone] to speak to the covering General Internal Medicine provider. Identify yourself as a patient in our practice and give the doughnut machine operator helper your doctor's name. The doughnut machine operator helper will contact the physician office automation clerk. You can generally expect a return call within 30 minutes. Prescription Refills Contact your pharmacy to request all refills. You may also send a Buyou message for refills. Please allow a minimum of 48-72 hours for your prescription to be completed. Your pharmacy will notify you when your prescription is ready to be picked up. SCHEDULE YOUR OWN APPOINTMENT AT [facility] We are excited to announce that some [facility] appointments can now be scheduled online. If you are not able to access the type of appointment that you need using this service, our [facility] Scheduling department will be happy to continue to serve you. Use one of these options to schedule your next appointment today: ??? Access self-scheduling options by visiting the [facility] Online Scheduling Webpage. ??? Make an appointment by calling [facility] Central [phone] Visit our website at [email or web address] for information about our practice and an interactive health encyclopedia. documented in this encounter Progress Notes * Luz Meyer MD - 04/15/2021 1:14 PM CDT Patient's Name: Lakeisha Alejandra Date of : 1970 Date of Visit: 03/18/2021 PULMONARY CLINIC NOTE The patient is a 50 year old female who is here to establish care with the [facility] for: 1. COPD 2. SOB 3. [...] of 78% - called ambulance Hospitalized at [facility] for several days - up to [...] ??? BIOPSY ??? HX SPINAL FUSION ??? NM FEMUR/KNEE SURG UNLISTED both knees ??? LUTHER [...] fluticasone propionate (FLONASE) 50 MCG/ACT nasal spray, [place] 2 sprays into each nostril once daily, [...] 0 ??? NARCAN 4 MG/0.1ML nasal spray, [place] 4 mg into each nostril as needed, Disp: , Rfl: ??? NYSTOP 268231 UNIT/GM powder, Apply 1 Dose to affected [...] and not in cardiopulmonary distress. On O2 Mckenzie and anicteric conjunctivae. Vesicular breath sounds. No [...] of Isovue-[address] scans at [facility] are performed using dose optimization techniques as [...] Meyer M.D. Pulmonary and Critical Care Fellow [facility] Division of Pulmonary, Critical Care and Sleep Medicine 03/18/2021 Associated attestation - Joe Lomas MD - 04/16/2021 4:01 PM CDT I saw and evaluated the patient. I agree with findings and the plan of care as documented in the fellow note. Joe Lomas MD [employer] Systems Techniciansolutions analyst Division of Pulmonary, Critical Care, & Sleep Medicine [facility] documented in this encounter Plan of Treatment [...] [place] MD - 05/28/2021 1:16 PM CDT [facility] DEPARTMENT OF PULMONARY, CRITICAL [...] of Pulmonary, Critical Care, & Sleep Medicine [facility] 05/29/2021 3:57 PM ?? I have reviewed the above study and agree with the interpretation as listed above. Rosendo [place] MD Air Traffic Systems Technician of Pulmonary & Critical Care Medicine [facility] Pager [phone] Narrative Rosendo [place] MD - 05/28/2021 1:16 [...] (HCC) documented in this encounter Care Teams Deliverer Pharmacy Relationship Specialty Start Date End Date Blake Lindsey MD [address] [place] [address] PCP - General 05/20/16 documented as of this encounter
--- OUTSIDE RECORDS SUMMARY | 2024-07-29 17:50 | XMS_ITS | Encounter Summary ---
Author Organization [facility] Health Address [address] [place] [address] Care Team Providers Care Stator Connector Name Role Phone Blake Lindsey MD Primary Care Provider [phone] Encounter Details Date Type Department Care Team (Late st Contact Info) Description 07/15/2021 Orders Only [facility] [address] [place] [address] Reba Crews, APNP-KIDS CLUB ATTENDANT [address] DIV OF PULMONARY/[place] [address] Central sleep apnea comorbid with prescribed opioid [...] COVID-19? No / Unsure 07/01/2021 1:04 PM ASSISTED LIVING MANAGER documented as of this encounter Functional [...] documented as of this encounter Results * [place] POLYSOM 6/>YRS CPAP 4/> PARM (08/06/2021 10:18 AM ASSISTED LIVING MANAGER) Narrative Lowell Pop MD - 08/06/2021 10:18 AM ASSISTED LIVING MANAGER Lowell Pop MD ? 08/06/2021 10:19 AM [facility] Accredited by the [place] [employer] [facility], First Floor [address] [place] [address] Telephone : [phone] ? Medical Records Patient Name: Lakeisha Alejandra : 1970 Date of Study: 08/05/2021 Referring Physician: Blake Lindsey MD Type of Montage: Respiratory Scoring Montage: ??[facility] FULL NIGHT THERAPEUTIC POLYSOMNOGRAM INTERPRETATION Procedure: The polysomnogram was performed with a mechanical engineering technologist in attendance. ??Central, occipital, and [...] History: Ms. Lakeisha Alejandra, a 50 year oldyhj-hjvu-hnn female, was referred to the Sleep Disorders [...] ?fluticasone propionate (FLONASE) 50 MCG/ACT nasal spray, [place] 2 sprays into each nostril once daily, [...] nares, Disp: 22 g, Rfl: 1 ?NYSTOP 008219 UNIT/GM powder, Apply 1 Dose to affected [...] shunt, diffusion abnormality, etc.). Lowell Pop MD, [facility], [facility], [facility] Instructional Technology Coach, [facility] Professor of Internal Medicine Adjunct Manager Of Production of Neurology Division of Pulmonary, Critical Care, and Sleep Medicine [facility] This note was electronically signed on 08/06/2021. Reba A Dettenmeier APNP-KIDS CLUB ATTENDANT PROCEDUR E/MINOR SURGICAL ORDERABLES documented in this encounter Visit Diagnoses Diagnosis Central sleep apnea comorbid with prescribed opioid use Primary central sleep apnea Primary central sleep apnea documented in this encounter Care Teams Stator Connector Relationship Specialty Start Date End Date Blake Lindsey MD [address] [place] [address] PCP - General 05/20/16 documented as of this encounter
--- OUTSIDE RECORDS SUMMARY | 2024-07-29 17:50 | XMS_ITS | Encounter Summary ---
Author Organization [facility] Health Address [address] [place] [address] Care Team Providers Care Rehabilitation Clerk Name Role Phone Blake Lindsey MD Primary Care Provider [phone] Reason for Visit * Radiology Services (Routine) - Closed Specialty Diagnoses / Procedures Referred By Ariel cano Referred To Contact Interventional Radiology Diagnoses Hodgkin lymphoma, unspecified Hodgkin lymphoma type, unspecified body region (HCC) Procedures IR US FINE NEEDLE ASPIRATION Nia Augustin, EXTENSION WORK INSTRUCTOR-CARAMEL CANDY MAKER HELPER [address] [place] [address] [facility] [address] [place] [address] Referral ID Status Reason Start Date Expiration Date Visits Re quested Visits Authorized [id number] Closed 11/04/2020 11/01/2021 1 1 Encounter Details Date Type Department Care Team (Latest Contact Info) Description 11/04/2020 10:07 AM CDT - 11/04/2020 2:44 PM CDT Hospital Encounter [facility] [address] [place] [phone] Nia Augustin, EXTENSION WORK INSTRUCTOR-CARAMEL CANDY MAKER HELPER [address] [place] [address] Vinita Barajas MD [address] [facility] [address] [place] [phone] [facility] Discharge Disposition: Home or [...] tablet by mouth once daily 06/21/2020 NYSTOP 544233 UNIT/GM powder Apply 1 Dose to affected [...] fluticasone propionate (FLONASE) 50 MCG/ACT nasal spray [place] 2 sprays into each nostril once daily [...] 09/11/2020 07/15/2021 NARCAN 4 MG/0.1ML nasal spray [place] 4 mg into each nostril as needed [...] fluticasone propionate (FLONASE) 50 MCG/ACT nasal spray [place] 2 sprays into each nostril once daily [...] 0 ??? NARCAN 4 MG/0.1ML nasal spray [place] 4 mg into each nostril as needed ??? NYSTOP [id number] UNIT/GM powder Apply 1 Dose to affected [...] Patient: Lakeisha Alejandra Attending: Julio Pang MD Swatcher: Aram Hernandez Diagnosis/Indication: Hodgkin's lymphoma Procedure: FNAC [...] on 11/04/2020 4:45 PM . Nia Augustin EXTENSION WORK INSTRUCTOR-CARAMEL CANDY MAKER HELPER IR ORDERABLES * CULTURE ABSCESS+GRAM STAIN (11/04/2020 2:07 PM CDT) Culture No growth NEVIN 11/07/2020 6:25 AM CDT [facility] Gram Stain No organisms seen 021 6:25 AM CDT [facility] Gram Stain Rare Polymorphonuclear cells 11/07/2020 6:25 AM CDT [facility] Microbiology MASS OF PAROTID GLAND / Unknown Collection / Unknown 11/04/2020 2:07 PM CDT 11/04/2020 4:06 PM CDT Julio Pang MD LAB - MICROBIOL OGY ORDERABLES [facility] [address] [place] [address], [facility] [phone] * FINE NEEDLE ASPIRATION (STL) (11/04/2020 1:36 PM CDT) Case Report Medical Cytology Report ? Case: [id number] ? Authorizing Provider: ??Nia Augustin, [place] ?Collected: [...] on a re-staging exam. 11/05/2020 5:03 PM [facility] Gross Description A) 2 [...] 2: some lymphocytes (13:40) 11/05/2020 5:03 PM [facility] Microscopic Description Parotid (A), [...] in this lymph node. 11/05/2020 5:03 PM [facility] Disclaimer The performance characteristics of all immunohistochemical and indirect immunofluorescence stains (if any) cited in this report were determined by the Histopathology Laboratory of [facility]. Some of these tests rely on the use of analyte-specific reagents and are subject to specific labeling requirements by the [place] Food and Drug Administration. Such tests were developed by the Histology Laboratory of [facility] and have not been cleared or [...] attending (teaching) pathologist. 11/05/2020 5:03 PM CDT [facility] Embedded Images 11/05/2020 5:03 PM CDT [facility] Pathology/Cytology ENTIRE LYMPH NODE / Unknown Collection / Unknown 11/04/2020 1:36 PM CDT 11/04/2020 3:09 PM CDT Miscellaneous samples (specimen) ENTIRE CERVICAL LYMPH NODE / Unknown 11/04/2020 1:36 PM CDT 11/04/2020 3:09 PM CDT Nia Augustin APRN-FAROOQ LAB - PATHOLOGY/CY TOLOGY ORDERABLES [facility] [address] [phone] documented in this encounter Visit Diagnoses Diagnosis [...] (IR) documented in this encounter Care Teams Rehabilitation Clerk Relationship Specialty Start Date End Date Blake Lindsey MD [address] [place] [address] PCP - General 05/20/16 documented as of this encounter
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
--- OUTSIDE RECORDS SUMMARY | 2024-07-29 17:50 | XMS_ITS | Encounter Summary ---
Author Organization [facility] Address [address] [address] Care Team Providers Care Solar Energy Systems Designer Name Role Phone Blake Lindsey MD Primary Care Provider [phone] Encounter Details Date Type Department Care Team (Late st Contact Info) Description 03/17/2021 Orders Only [facility] [address] [place] [id number] Kandi Domingo RN Social History Tobacco Use [...] on filedocumented in this encounter Care Teams Solar Energy Systems Designer Relationship Specialty Start Date End Date Blake Lindsey MD [address] [place] [address] PCP - General 05/20/16 documented as of this encounter
--- OUTSIDE RECORDS SUMMARY | 2024-07-29 17:50 | XMS_ITS | Encounter Summary ---
Author Organization [facility] Address [address] [facility] [place] [address] Care Team Providers Care Machine Tester Name Role Phone Blake Lindsey MD Primary Care Provider [phone] Encounter Details Date Type Department Care Team (Late st Contact Info) Description 10/31/2020 Orders Only [facility] - Orthopedics [facility] [place] [address] Bridget Angela PA No Information [...] PM CDT) Case Report Flow Cytometry ?Case: [id number] ? Authorizing Provider: ??Nia Augustin, [place] ?Collected: ? 11/04/2020 01:30 PM ? Ordering Location: ? [facility] ? Received: ?11/04/2020 02:49 PM ? Pathologist: ? Sisi Pichardo MD ? Specimen: ?Body Fluid ? 11/04/2020 4:15 PM [facility] Final Diagnosis Lymph node, left neck, flow cytometric immunophenotypic analysis: - No evidence of non-Hodgkin lymphoma. - See interpretation. 11/04/2020 4:15 PM [facility] Flow Cytometry Interpretation The left neck lymph node specimen has a viability of 100%. Within the lymphocyte gate, there is no monoclonal B-cell population identified (kappa:lambda ratio = 1.1:1). There is no aberrant T-cell population seen (CD4:CD8 ratio is 1.4:1). A cytospin prepared from the flow cytometry specimen is reviewed for quality assurance advisor purposes. The left neck lymph node specimen shows no evidence of involvement by non-Hodgkin lymphoma. Correlation with clinical findings is required. 11/04/2020 4:15 PM [facility] Flow Cytometry Results Differential Result Comment Flow Cell Count /uL 1,100 Total Viability % 100 Lymphocytes % 98 Dim CD45 Region % 0 Monocytes % 1 Granulocytes % 1 11/04/2020 4:15 PM [facility] Client Specimen ID # [id number] 11/04/2020 4:15 PM [facility] Reason for test Hodgkin lymphoma, unspecified Hodgkin lymphoma type, unspecified body region 11/04/2020 4:15 PM [facility] Number of markers 16 were performed. A-2 Flow CD3 A-4 Flow CD10 A-6 Flow CD20 A-7 Flow CD23 A-12 Flow CD2 A-13 Flow CD4 A-16 Flow CD1a A-3 Flow CD5 A-5 Flow CD19 A-8 Flow CD34 A-9 Flow CD45 A-14 Flow CD7 A-15 Flow CD8 A-17 Flow CD30 A-10 [place]+CD19+ A-11 Lambda+CD19+ 11/04/2020 4:15 PM [facility] Disclaimer Test performed at [facility], [address], [place], [place], [address]. *The established laboratory minimum viability is 70%. [...] complexity clinical testing. 11/04/2020 4:15 PM CDT [facility] Embedded Images 4:15 PM CDT [facility] Fluid BODY FLUID SPECIMEN / Unknown 11/04/2020 1:30 PM CDT 11/04/2020 2:49 PM CDT Comment:Lymph node, cervical , left, FNA Nia Augustin PIANO TEACHER-BACKUP ADMINISTRATOR LAB - PATHOLOGY/CY TOLOGY ORDERABLES [facility] [address] [facility] [phone] documented in this encounter Visit Diagnoses Diagnosis Acute pain of right knee- Primary Hodgkin lymphoma, unspecified Hodgkin lymphoma type, unspecified body region (HCC) documented in this encounter Care Teams Machine Tester Relationship Specialty Start Date End Date Blake Lindsey MD [address] [place] [address] PCP - General 05/20/16 documented as of this encounter
--- OUTSIDE RECORDS SUMMARY | 2024-07-29 17:50 | XMS_ITS | Encounter Summary ---
Author Organization [facility] Address [address] [place] [address] Care Team Providers Care Resp Therapist Name Role Phone Blake Lindsey MD Primary Care Provider [phone] Reason for Visit * Procedure (Routine) - Closed Specialty Diagnoses / Procedures Referred By Ariel cano Referred To Contact Sleep Center Diagnoses Central sleep apnea comorbid with prescribed opioid use Primary central sleep apnea Procedures PROC POLYSOMNOGRAPHY,THERAPEUT IC FULL NIGHT Reba Crews, APNP-FIBERGLASS ROLLER [address] [place] [address] [facility] [address] [place] [address] Referral ID Status Reason Start Date Expiration Date Visits Re quested Visits Authorized [id number] Closed 07/15/2021 07/15/2022 1 1 Encounter Details Date Type Department Care Team (Latest Contact Info) Description 08/05/2021 8:00 PM GIS GEOGRAPHER Procedure visit [facility] [address] [place] [address] Sleep related hypoxia ; Sleep [...] Pop MD - 08/06/2021 10:07 AM CST [facility] Accredited by the [place] [employer] [facility], First Floor [address] [place] [address] Telephone : [phone] Medical Records Patient Name: Lakeisha Alejandra : 1970 Date of Study: 08/05/2021 Referring Physician: Blake Lindsey MD Type of Montage: Respiratory Scoring Montage: [facility] FULL NIGHT THERAPEUTIC POLYSOMNOGRAM INTERPRETATION Procedure: The polysomnogram was performed with a cardiac cath technologist in attendance. Central, occipital, and temporal [...] History: Ms. Lakeisha Alejandra, a 50 year olddjm-ixcx-auo female, was referred to the Sleep Disorders [...] fluticasone propionate (FLONASE) 50 MCG/ACT nasal spray, [place] 2 sprays into each nostril once daily, [...] Disp: 22 g, Rfl: 1 ??? NYSTOP [id number] UNIT/GM powder, Apply 1 Dose to affected [...] abnormality, etc.). Lowell Pop MD, MSP, FCCP, [facility] Veneer Stapler, [facility] [place] Professor of Internal Medicine Adjunct Schedule Checker of Neurology Division of Pulmonary, Critical Care, and Sleep Medicine [facility] This note was electronically signed on 08/06/2021. GEOGRAPHER documented in this encounter Procedure Notes * Lowell Pop MD - 08/06/2021 10:18 AM CSTAssociated Order(s): PROC POLYSOMNOGRAPHY,THERAPEUTIC FULL NIGHT Procedure(s): FL POLYSOM 6/>YRS CPAP 4/> PARM Pre-Procedure Diagnose(s): Central sleep apnea comorbid with prescribed opioid use; Primary centralsleep apnea Post-Procedure Diagnose(s): Sleep apnea, unspecified type; Sleep related hypoxia [facility] Accredited by the [place] [employer] [facility] First [facility] [address] [place] [address] Telephone : [phone] Medical Records Patient Name: Lakeisha Alejandra : 1970 Date of Study: 08/05/2021 Referring Physician: Blake Lindsey MD Type of Montage: Respiratory Scoring Montage: [facility] FULL NIGHT THERAPEUTIC POLYSOMNOGRAM INTERPRETATION Procedure: The polysomnogram was performed with a cardiac cath technologist in attendance. Central, occipital, and temporal [...] History: Ms. Lakeisha Alejandra, a 50 year oldtkt-hncn-zdy female, was referred to the Sleep Disorders [...] fluticasone propionate (FLONASE) 50 MCG/ACT nasal spray, [place] 2 sprays into each nostril once daily, [...] Disp: 22 g, Rfl: 1 ??? NYSTOP 539554 UNIT/GM powder, Apply 1 Dose to affected [...] etc.). Lowell Pop MD, [facility], [facility], [facility] Veneer Stapler, [facility] Professor of Internal Medicine Adjunct Schedule Checker of Neurology Division of Pulmonary, Critical Care, and Sleep Medicine [facility] This note was electronically signed on 08/06/2021. GEOGRAPHER documented in this encounter Plan of Treatment Not on file documented as of this encounter Procedures Procedure Name Priority Date/Time Associated Diagnosis Comments FL POLYSOM 6/>YRS CPAP 4/> PARM Routine 08/06/2021 10:18 AM GIS GEOGRAPHER Central sleep apnea comorbid with prescribed opioid use Primary central sleep apnea documented in this encounter Visit Diagnoses Diagnosis Sleep related hypoxia- Primary Idiopathic sleep related nonobstructive alveolar hypoventilation Sleep apnea, unspecified type documented in this encounter Care Teams Resp Therapist Relationship Specialty Start Date End Date Blake Lindsey MD [address] [place] [id number] PCP - General 05/20/16 documented as of this encounter
--- OUTSIDE RECORDS SUMMARY | 2024-07-29 17:50 | XMS_ITS | Encounter Summary ---
Author Organization [facility] Health Address [address] [place] [address] Care Team Providers Care Electrophysiology Tech Name Role Phone Blake Lindsey MD Primary Care Provider [phone] Encounter Details Date Type Department Care Team (Late st Contact Info) Description 08/06/2021 10:20 AM DIRECTOR GAME Office Visit [facility] Sleep Disorder [place] [address] [place], [place] [id number] Lowell Pop MD [address] 2L DIV OF PULMONARY/CRITICA L CARE [place], [place] [id number] Iron deficiency anemia, unspecified iron deficiency anemia [...] Lowell Pop MD - 08/06/2021 9:18 AM DIRECTOR GAME Images from the original note were not included. [facility] Sleep Disorders Center [facility], First Floor [address] [place] [address] Telephone : [phone] or Medical Records BILEVEL POSITIVE AIRWAY PRESSURE [...] oximetry on above settings Lowell Pop MD, [facility], [facility], FAASM (NPI# [id number]) Turntable Operator, [facility] Sleep [facility] Professor of Internal Medicine Adjunct Messenger Office of Neurology Division of Pulmonary, Critical Care, and Sleep Medicine [facility] This note was electronically signed on 08/06/2021. [facility], First Floor [address] [place] [address] Telephone : [phone] Medical Records OXYGEN PRESCRIPTION FORM Patient Name: [...] oximetry on above settings Lowell Pop MD, [facility], [facility], FAA (NPI#[id number]) Turntable Operator, [facility] Professor of Internal Medicine Adjunct Messenger Office of Neurology Division of Pulmonary, Critical Care, and Sleep Medicine [facility], First Floor [address] [place] [address] Telephone : [phone] Medical Records Patient's Name: Park Alejandra Date of : 1970 Date of Visit: 08/06/2021 POST-POLYSOMNOGRAPHY CLINIC VISIT NOTE Time allotted by [facility] for visit = 20 minutes S> The [...] fluticasone propionate (FLONASE) 50 MCG/ACT nasal spray, [place] 2 sprays into each nostril once daily, [...] Disp: 22 g, Rfl: 1 ??? NYSTOP [id number] UNIT/GM powder, Apply 1 Dose to affected [...] or vocational program Occupational History ??? Occupation: [employer] Tobacco Use ??? 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 Pop. [x] [facility] Sleep Disorders Center in 4 weeks at the CPAP Adherence Clinic. Lowell Pop MD, [facility], [facility], [facility] Turntable Operator, [facility] Sleep Disorders Center Professor of Internal Medicine Adjunct Messenger Office of Neurology Division of Pulmonary, Critical Care, and Sleep Medicine [facility] This note was electronically signed on 08/05/2021. CTOR GAME documented in this encounter Progress Notes * Lowell Pop MD - 08/06/2021 10:20 AM CST Images from the original note were not included. [facility] Sleep Disorders [facility], First Floor [address] [place] [address] Telephone : [phone] Medical Records Patient's Name: Park Alejandra Date [...] fluticasone propionate (FLONASE) 50 MCG/ACT nasal spray, [place] 2 sprays into each nostril once daily, [...] Disp: 22 g, Rfl: 1 ??? NYSTOP [id number] UNIT/GM powder, Apply 1 Dose to affected [...] or vocational program Occupational History ??? Occupation: [employer] Tobacco Use ??? 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 Pop. [x] [facility] Sleep Disorders Center in 4 weeks at the CPAP Adherence Clinic. Lowell Pop MD, [facility], [facility], [facility] Turntable Operator, [facility] Sleep Disorders [place] Professor of Internal Medicine Adjunct Messenger Office of Neurology Division of Pulmonary, Critical Care, and Sleep Medicine [facility] This note was electronically signed on 08/05/2021. CTOR GAME * Lowell Pop MD - 08/06/2021 9:17 AM CST [facility] Sleep Disorders [facility], First Floor [address] [facility], [place] [address] Telephone : [phone] Medical Records OXYGEN PRESCRIPTION FORM Patient Name: [...] oximetry on above settings Lowell Pop MD, [facility], [facility], [facility] (NPI#[id number]) Turntable Operator, [facility] Sleep Disorders [place] Professor of Internal Medicine Adjunct Messenger Office of Neurology Division of Pulmonary, Critical Care, and Sleep Medicine [facility] CTOR GAME * Lowell Pop MD - 08/06/2021 9:16 AM CST [facility] Sleep Disorders [facility], First Floor [address] [place] [address] Telephone : [phone] or Medical Records BILEVEL POSITIVE AIRWAY PRESSURE [...] oximetry on above settings Lowell Pop MD, [facility], [facility], FAA (NPI# [id number]) Turntable Operator, [facility] Sleep Disorders [place] Professor of Internal Medicine Adjunct Messenger Office of Neurology Division of Pulmonary, Critical Care, and Sleep Medicine [facility] This note was electronically signed on 08/06/2021. CTOR GAME documented in this encounter Plan of Treatment Not on file documented as of this encounter Results * METHYLMALONIC ACID BLOOD (08/13/2021 3:47 PM DIRECTOR GAME) [facility] Methylmalonic Acid 0.15 0.00 - 0.40 umol/L 08/17/2021 1:08 PM DIRECTOR GAME [employer] ([facility]) Comment: INTERPRETIVE INFORMATION: MMA Serum/Plasma, ?Vitamin B12 Status This test was developed and its performance characteristics determined by [employer]. It has not been cleared or approved by the US Food and Drug Administration. This test was performed in a CLIA certified laboratory and is intended for clinical purposes. Performed By: [employer] [address] [place], [place] [id number] Senior Underwriting Assistant: Karol Bowen MD Blood BLOOD SPECIMEN / Unknown Lab Venipuncture / Unknown 08/13/2021 3:47 PM DIRECTOR GAME 08/13/2021 4:16 PM DIRECTOR GAME Lowell Pop MD LAB - CHEMISTRY ORD ERABLES [employer] ([facility]) [address] [place], [place] [id number] [place] [address] * (ABNORMAL) VITAMIN B12 (08/13/2021 3:47 PM DIRECTOR GAME) Pathologist [facility] Vitamin B12 989(H) 213 - 816 pg/mL 08/13/2021 5:03 PM DIRECTOR GAME [facility] Blood BLOOD SPECIMEN / Unknown Lab Venipuncture / Unknown 08/13/2021 3:47 PM DIRECTOR GAME 08/13/2021 4:14 PM DIRECTOR GAME Lowell Pop MD LAB - CHEMISTRY ORD ERABLES [facility] [address] [place] [address], [facility] [phone] * VITAMIN D 25-HYDROXY (08/13/2021 3:47 PM DIRECTOR GAME) [facility] Vitamin D, 25 Hydroxy 31.0 30.0 - 80.0 ng/mL 08/13/2021 5:03 PM [facility] Comment: The recommendations for 25-Hydroxy Vitamin [...] Lab Venipuncture / Unknown 08/13/2021 3:47 PM DIRECTOR GAME 08/13/2021 4:14 PM DIRECTOR GAME Lowell Pop MD LAB - CHEMISTRY ORD ERABLES Performing Organization Address City/[facility]/ZIP Co de Phone Number [facility] [address] [place] [address], [place] [phone] * FERRITIN (08/13/2021 3:47 PM DIRECTOR GAME) Ferritin 39 13 - 204 ng/mL 08/13/2021 4:57 PM DIRECTOR GAME [facility] Blood BLOOD SPECIMEN / Unknown Lab Venipuncture / Unknown 08/13/2021 3:47 PM DIRECTOR GAME 08/13/2021 4:16 PM DIRECTOR GAME Lowell Pop MD LAB - CHEMISTRY ORD ERABLES Performing Organization Address City/[facility]/ZIP Co de Phone Number [address] [address], [place] [phone] documented in this encounter Visit Diagnoses Diagnosis Iron deficiency anemia, unspecified iron deficiency anemia type- Primary Vitamin B12 deficiency Other B-complex deficiencies Vitamin D deficiency documented in this encounter Care Teams Electrophysiology Tech Relationship Specialty Start Date End Date Blake Lindsey MD [address] [place] [address] PCP - General 05/20/16 documented as of this encounter
--- OUTSIDE RECORDS SUMMARY | 2024-07-29 17:50 | XMS_ITS | Encounter Summary ---
Author Organization [facility] Health Address [address] [place] [address] Care Team Providers Care Electronic News Gathering Camera Person Name Role Phone Blake Lindsey MD Primary Care Provider [phone] Reason for Referral * Radiology Services (Routine) - Closed Specialty Diagnoses / Procedures Referred By Ariel cano Referred To Contact CT Scan Diagnoses Parotid nodule Procedures CT NECK SOFT TISSUE W Nia Quintanilla, JUWAN-REMEDIATION PROJECT ENGINEER [address] [place] [address] Referral ID Status Reason Start Date Expiration Date Visits Re quested Visits Authorized [id number] Closed 09/26/2020 09/26/2021 1 1 Reason for Visit * Radiology Services (Routine) - Closed Specialty Diagnoses / Procedures Referred By Ariel cano Referred To Contact CT Scan Diagnoses Parotid nodule Procedures CT NECK SOFT TISSUE W Nia Quintanilla, JUWAN-REMEDIATION PROJECT ENGINEER [address] [place] [address] Referral ID Status Reason Start Date Expiration Date Visits Re quested Visits Authorized [id number] Closed 09/26/2020 09/26/2021 1 1 Encounter Details Date Type Department Care Team (Latest Contact Info) Description 10/18/2020 1:05 PM CDT - 10/18/2020 11:59 PM CDT Hospital Encounter [facility] CAT SCAN [address] [place] [address] Nia Augustin, SERVICE ORDER DISPATCHER CHIEF-REMEDIATION PROJECT ENGINEER [address] [place] [address] Discharge Disposition: Home or Self Care Social [...] tablet by mouth once daily 06/21/2020 NYSTOP 538275 UNIT/GM powder Apply 1 Dose to affected [...] propionate (FLONASE) 50 MCG/ACT nasal spray [place] 2 sprays into each nostril once daily [...] 07/15/2021 NARCAN 4 MG/0.1ML nasal spray [place] 4 mg into each nostril as needed [...] node. Dictated by Balta Arellano DO (residential program coordinator) I, Dr. JAJA AKERS have personally reviewed [...] node. Dictated by Balta Arellano DO (residential program coordinator) I, Dr. JAJA AKERS have personally reviewed and interpreted this examination/study. This report was electronically signed by JAJA AKERS on 10/18/2020 3:35PM . Nia Augustin SERVICE ORDER DISPATCHER CHIEF-REMEDIATION PROJECT ENGINEER CT ORDERABLES * CREATININE - POCT INTERFACED (10/18/2020 1:10 PM CDT) Creatinine POCT 0.75 0.30 - 1.30 mg/dL 10/18/2020 4:21 PM CDT [facility] eGFR >60 >60 mL/min/1.7 3 m2 10/18/2020 4:21 PM CDT [facility] Blood BLOOD SPECIMEN / Unknown 10/18/2020 1:10 PM CDT 10/18/2020 4:21 PM CDT Nia Augustin APRN-REMEDIATION PROJECT ENGINEER LAB - POINT OF CAR E ORDERABLES [facility] [address] [place] [address], [facility] [phone] documented in this encounter Visit Diagnoses Diagnosis [...] mL documented in this encounter Care Teams Electronic News Gathering Camera Person Relationship Specialty Start Date End Date Blake Lindsey MD [address] [place] [address] PCP - General 05/20/16 documented as of this encounter
--- OUTSIDE RECORDS SUMMARY | 2024-07-29 17:50 | XMS_ITS | Encounter Summary ---
Author Organization [facility] Health Address [address] [facility] [place] [address] Care Team Providers Care Paper Bag Inspector Name Role Phone Blake Lindsey MD Primary Care Provider [phone] Encounter Details Date Type Department Care Team (Late st Contact Info) Description 08/05/2020 Orders Only [facility] [address] [place] [address] Nia Augustin, MULTIPLE DRILL OPERATOR-PIANO CASE AND BENCH ASSEMBLER [address] [place] [address] Social History Tobacco Use Types Packs/Day Years [...] on filedocumented in this encounter Care Teams Paper Bag Inspector Relationship Specialty Start Date End Date Blake Lindsey MD [address] [place] [address] PCP - General 05/20/16 documented as of this encounter
--- OUTSIDE RECORDS SUMMARY | 2024-07-29 17:50 | XMS_ITS | Encounter Summary ---
Author Organization [facility] Health Address [address] [facility] [place] [address] Care Team Providers Care Decal Decorator Name Role Phone Blake Lindsey MD Primary Care Provider [phone] Reason for Referral * Radiology Services (Routine) - Closed Specialty Diagnoses / Procedures Referred By Contac t Referred To Contact CT Scan Diagnoses Chest pain, unspecified type Hypoxia Lower extremity edema Procedures CT ANGIO CHEST PULM EMBOLISM Don Manuel MD [address] [place] [address] 2L DIV OF PULMONARY/[place] [address] [facility] [address] [place] [address] Referral ID Status Reason Start Date Expiration Date Visits Re quested Visits Authorized [id number] Closed 03/18/2021 03/18/2022 1 1 Reason for Visit * Radiology Services (Routine) - Closed Specialty Diagnoses / Procedures Referred By Contac t Referred To Contact CT Scan Diagnoses Chest pain, unspecified type Hypoxia Lower extremity edema Procedures CT ANGIO CHEST PULM EMBOLISM Don Manuel MD [address] [facility] 2L DIV OF PULMONARY/[place] [address] [facility] [address] [place] [address] Referral ID Status Reason Start Date Expiration Date Visits Re quested Visits Authorized [id number] Closed 03/18/2021 03/18/2022 1 1 Encounter Details Date Type Department Care Team (Latest Contact Info) Description 03/28/2021 7:00 AM CDT - 03/28/2021 7:05 AM CDT Hospital Encounter [facility] CAT SCAN [address] [place] [address] Don Manuel MD [address] [facility] 2L DIV OF PULMONARY/[place] [address] Discharge Disposition: Home or Self Care Social [...] bilateral nares 22 g 1 03/17/2021 NYSTOP [id number] UNIT/GM powder Apply 1 Dose to affected [...] fluticasone propionate (FLONASE) 50 MCG/ACT nasal spray [place] 2 sprays into each nostril once daily [...] 09/11/2020 07/15/2021 NARCAN 4 MG/0.1ML nasal spray [place] 4 mg into each nostril as needed [...] - 1.30 mg/dL 03/28/2021 7:27 AM CDT [facility] eGFR >60 >60 mL/min/1.7 3 m2 03/28/2021 7:27 AM CDT [facility] Blood BLOOD SPECIMEN / Unknown 03/28/2021 7:07 AM CDT 03/28/2021 7:27 AM CDT Don Manuel MD LAB - POINT OF CARE ORDERABLES Performing Organization Address City/State/[facility] Co de Phone Number [facility] [address] [place] [phone], [facility] [phone] documented in this encounter Visit Diagnoses Diagnosis [...] mL documented in this encounter Care Teams Decal Decorator Relationship Specialty Start Date End Date Blake Lindsey MD [address] [place] [address] PCP - General 05/20/16 documented as of this encounter
--- OUTSIDE RECORDS SUMMARY | 2024-07-29 17:51 | XMS_ITS | Encounter Summary ---
Author Organization [facility] Address [address] [facility] [place] [address] Care Team Providers Care Dietetic Technician Name Role Phone Blake Lindsey MD Primary Care Provider [phone] Reason for Visit * Radiology Services (Routine) - Closed Specialty Diagnoses / Procedures Referred By Contac t Referred To Contact Positron Emission Tomography Diagnoses Hodgkin lymphoma of extranodal or solid organ site (HCC) Hodgkin lymphoma, unspecified Hodgkin lymphoma type, unspecified body region (HCC) Procedures PET CT WHOLE BODY Castillo Max MD [address] [place] [address] [facility] [address] [place] [address] Referral ID Status Reason Start Date Expiration Date Visits Re quested Visits Authorized [id number] Closed 01/19/2019 07/18/2019 1 1 Encounter Details Date Type Department Care Team (Latest Contact Info) Description 02/13/2019 10:42 AM CDT - 02/13/2019 11:59 PM CDT Hospital Encounter [facility] PET [address] [place] [address] Castillo Max MD [address] [place] [address] Discharge Disposition: Home or Self Care Social [...] 30 tablet 01/12/2019 QUEtiapine (SEROQUEL) 100 MG tabletIndications:Dee or Depressive Disorder Take 1 tablet by [...] on filedocumented in this encounter Care Teams Dietetic Technician Relationship Specialty Start Date End Date Blake Lindsey MD [address] [place] [address] PCP - General 05/20/16 documented as of this encounter
--- OUTSIDE RECORDS SUMMARY | 2024-07-29 17:51 | XMS_ITS | Encounter Summary ---
Author Organization [facility] Health Address [address] [facility] [place] [address] Care Team Providers Care Construction Contractor Name Role Phone Blake Lindsey MD Primary Care Provider [phone] Encounter Details Date Type Department Care Team (Latest Contact Info) Description 09/09/2016 Hospital Outpatient Visit [facility] - Orthopedics [address] [place] [address] Discharge Disposition: Home or Self Care [...] 4VW OR MORE Routine 09/09/2016 10:34 AM HUMAN FACTORS ENGINEER XR KNEE LEFT 4VW OR MORE Routine 09/09/2016 10:34 AM HUMAN FACTORS ENGINEER documented in this encounter Results * XR KNEE RIGHT 4VW OR MORE (09/09/2016 10:34 AM HUMAN FACTORS ENGINEER) Anatomical Region Laterality Modality Lower Extremity Other Impressions 09/09/2016 12:01 PM HUMAN FACTORS ENGINEER Impression: Mild osteoarthritis of both knees. This report was electronically signed by ALICIA GREEN M.D. ??on 09/09/2016 12:01 PM . Narrative 09/09/2016 12:01 PM HUMAN FACTORS ENGINEER Examination: 1. Left knee minimum 4 views [...] LEFT 4VW OR MORE (09/09/2016 10:34 AM HUMAN FACTORS ENGINEER) Anatomical Region Laterality Modality Lower Extremity Other Impressions 09/09/2016 12:01 PM HUMAN FACTORS ENGINEER Impression: Mild osteoarthritis of both knees. This report was electronically signed by ALICIA GREEN M.D. ??on 09/09/2016 12:01 PM . Narrative 09/09/2016 12:01 PM HUMAN FACTORS ENGINEER Examination: 1. Left knee minimum 4 views [...] leg documented in this encounter Care Teams Construction Contractor Relationship Specialty Start Date End Date Blake Lindsey MD [address] [place] [address] PCP - General 05/20/16 documented as of this encounter
--- OUTSIDE RECORDS SUMMARY | 2024-07-29 17:51 | XMS_ITS | Encounter Summary ---
Author Organization [facility] Health Address [address] [facility] [place] [address] Care Team Providers Care Wreath And Garland Maker Name Role Phone Blake Lindsey MD Primary Care Provider [phone] Reason for Visit * Reason Comments Pain Neck Encounter Details Date Type Department Care Team (Late st Contact Info) Description 11/24/2018 1:00 PM CDT Office Visit [facility] [address] [facility] [address] [place] [address] Lay Mckeon, HELPER TEACHER-EXTRUDER OPERATOR [address] [facility] [address] [place] [address] Carpal tunnel syndrome of right wrist (Primary [...] this encounter Progress Notes * Lay Mckeon, HELPER TEACHER-EXTRUDER OPERATOR - 11/24/2018 1:08 PM CDT Lakeisha Alejandra [...] referral from No ref. provider found she (caps):[id number]} rates the pain 9/10 today. History of [...] TS PO QD 0 ??? nystatin (MYCOSTATIN) 197624 UNIT/GM powder 0 ??? ondansetron (ZOFRAN) 8 [...] ??? BIOPSY ??? HX SPINAL FUSION ??? ME FEMUR/KNEE SURG UNLISTED both knees ??? LUTHER [...] Insurance denied but patient found one at [employer] and bought patches off [employer]. ?? 10/24/2018 Spoke with [facility] , and verified last script for Oxycodone 20mg #180 1-2 tabs every 6 hours 06/2018, from Dr. Blake Lindsey.?? Spoke with Jessica Guaman at [facility] . She agrees that the patient [...] Resulting Agency Comment Lab Testing performed at: [facility] [address] [place] [address] D ??[facility] [id number] Lay Mckeon HELPER TEACHER-EXTRUDER OPERATOR LAB - URINE CH EMISTRY ORDERABLES [facility] INSURANCE BILL [address] [place] [address] documented in this encounter Visit Diagnoses Diagnosis Carpal tunnel syndrome of right wrist- Primary Carpal tunnel syndrome Chronic pain of right knee Chronic pain of left knee Pain in joint, lower leg Cervicalgia Controlled substance agreement signed Encounter for long-term (current) use of other medications documented in this encounter Care Teams Wreath And Garland Maker Relationship Specialty Start Date End Date Blake Lindsey MD [address] [place] [address] PCP - General 05/20/16 documented as of this encounter
--- OUTSIDE RECORDS SUMMARY | 2024-07-29 17:51 | XMS_ITS | Encounter Summary ---
Author Organization [facility] Health Address [address] [place] [address] Care Team Providers Care Formula Checker Name Role Phone Blake Lindsey MD Primary Care Provider [phone] Encounter Details Date Type Department Care Team (Late st Contact Info) Description 11/17/2018 Orders Only [facility] [address] Reba Du RN Chronic rhinitis Social History [...] Primary documented in this encounter Care Teams Formula Checker Relationship Specialty Start Date End Date Blake Lindsey MD [address] [place] [address] PCP - General 05/20/16 documented as of this encounter
--- OUTSIDE RECORDS SUMMARY | 2024-07-29 17:51 | XMS_ITS | Encounter Summary ---
Author Organization [facility] Health Address [address] [facility] [place] [address] Care Team Providers Care Vice President Of Human Resources Name Role Phone Blake Lindsey MD Primary Care Provider [phone] Encounter Details Date Type Department Care Team (Late st Contact Info) Description 01/19/2019 1:40 PM CDT Office Visit [facility] Hematology and Oncology[address] [address] Castillo Max MD [address] [place] [address] [place] [address] Hodgkin lymphoma, unspecified Hodgkin lymphoma type, [...] Max M.D. Director, Blood and Marrow Transplantation Drafter Heating And Ventilating, Department of Internal Medicine [facility] documented in this encounter Plan of Treatment Not on file documented as of this encounter Visit Diagnoses Diagnosis Hodgkin lymphoma, unspecified Hodgkin lymphoma type, unspecified body region (HCC)- Primary documented in this encounter Care Teams Vice President Of Human Resources Relationship Specialty Start Date End Date Blake Lindsey MD [address] [place] [address] PCP - General 05/20/16 documented as of this encounter
--- OUTSIDE RECORDS SUMMARY | 2024-07-29 17:51 | XMS_ITS | Encounter Summary ---
Author Organization [facility] Health Address [address] [place] [address] Care Team Providers Care Coal Yard Supervisor Name Role Phone Blake Lindsey MD Primary Care Provider [phone] Encounter Details Date Type Department Care Team (Latest Contact Info) Description 07/12/2016 Emergency Department Historic [facility] EMERGENCY DEPARTMENT [address] [place], [place] [id number] Bib Arenas MD [address] [place] [address] Discharge Disposition: Home or Self Care Social [...] Comments Blood Pressure 129/103 07/12/2016 3:30 PM STRUCTURAL STEEL WORKER APPRENTICE Pulse 76 07/12/2016 3:32 PM STRUCTURAL STEEL WORKER APPRENTICE Temperature 36.7 ??C (98 ??F) 07/12/2016 1:28 PM STRUCTURAL STEEL WORKER APPRENTICE Respiratory Rate 17 07/12/2016 3:32 PM STRUCTURAL STEEL WORKER APPRENTICE Oxygen Saturation 98% 07/12/2016 3:32 PM STRUCTURAL STEEL WORKER APPRENTICE Inhaled Oxygen Concentration - - Weight 99.8 kg (220 lb) 07/12/2016 1:28 PM STRUCTURAL STEEL WORKER APPRENTICE Height 160 cm (5' 3 ) 07/12/2016 1:28 PM STRUCTURAL STEEL WORKER APPRENTICE Body Mass Index 38.97 07/12/2016 1:28 PM STRUCTURAL STEEL WORKER APPRENTICE documented in this encounter ED Notes * Ke Montoya MD - 07/12/2016 1:46 PM CST ED Provider Notes Signed by Ke Montoya MD on 07/12/2016 5:17 PM Author: Ke Montoya MD Service: Emergency Author Type: Resident Date of Service: 07/12/2016 1:46 PM Filed: 07/12/2016 5:17 PM Note Type: ED Provider Notes Status: Signed Wigs Salesperson: Ke Montoya MD (Resident) Cosigner: Bib Arenas [...] ??? Echocardiogram findings abnormal, without diagnosis at [facility] ??? GERD (gastroesophageal reflux disease) 07/13/2013 ??? [...] Home Meds Ke Montoya MD Resident 07/12/16 5852 CTURAL STEEL WORKER APPRENTICE * Bib Arenas MD - 07/12/2016 1:25 PM CST ED Provider Notes Signed by Bib Arenas MD on 07/12/2016 5:28 PM Author: Bib Arenas MD Service: Emergency Author Type: Physician Date of Service: 07/12/2016 1:25 PM Filed: 07/12/2016 5:28 PM Note Type: ED Provider Notes Status: Signed Wigs Salesperson: Bib Arenas MD (Physician) ED Resident Attestation [...] ??? Echocardiogram findings abnormal, without diagnosis at [facility] ??? GERD (gastroesophageal reflux disease) 07/13/2013 ??? [...] not screen for Propoxyphene, Meprobamate, Carisoprodol, Trazodone, [id number] medications and/or volatiles (Acetone, Isopropanol, Methanol or Ethylene Glycol). Ethanol, Salicylate, Acetaminophen, Tricyclic Antidepressants and several therapeutic drugsmay be individually assayed in serum or plasma specimen. Toxicology testing by the [facility] is an aid to medical diagnosisand [...] Procedure Abnormality Status --------- ------ CBC WITH DIFFERENTIAL[[id number]] Abnormal Final result Please view results for [...] 1:25 PM. Bib Arenas MD 07/12/16 1728 CTURAL STEEL WORKER APPRENTICE documented in this encounter Plan of Treatment Not on file documented as of this encounter Procedures Procedure Name Priority Date/Time Associated Diagnosis Comments DRUG ABUSE PANEL 10-20+ETHANOL URINE NO CONFIRM Routine 07/12/2016 3:54 PM STRUCTURAL STEEL WORKER APPRENTICE URINALYSIS REFLEX TO MICROSCOPIC NO CULTURE STAT 07/12/2016 3:54 PM STRUCTURAL STEEL WORKER APPRENTICE XR THORACIC SPINE 2VW Routine 07/12/2016 3:21 PM STRUCTURAL STEEL WORKER APPRENTICE CBC W AUTO DIFFERENTIAL STAT 07/12/2016 2:31 PM STRUCTURAL STEEL WORKER APPRENTICE COMPREHENSIVE METABOLIC PANEL STAT 07/12/2016 2:31 PM STRUCTURAL STEEL WORKER APPRENTICE MAGNESIUM BLOOD STAT 07/12/2016 2:31 PM STRUCTURAL STEEL WORKER APPRENTICE CBC W AUTO DIFFERENTIAL STAT 07/12/2016 2:31 PM STRUCTURAL STEEL WORKER APPRENTICE documented in this encounter Results * (ABNORMAL) DRUG ABUSE PANEL 10-20+ETHANOL URINE NO CONFIRM (07/12/2016 3:54 PM STRUCTURAL STEEL WORKER APPRENTICE) Amphetamines Screen Urine Negative Negative : < 1000 ng/mL [facility] Barbiturates Screen Urine Negative Negative : < 200 ng/mL [facility] Benzodiazepine Screen Urine Negative Negative : < 200 ng/mL [facility] Opiates Urine Positive(A) Negative : < 300 ng/mL [facility] Comment: Positive urine opiate screening results should be confirmed by another generally accepted non-immunological method such as gas chromatography or mass spectrometry. ? Cocaine Metabolites Urine Negative Negative : < 300 ng/mL [facility] Phencyclidine Screen Urine Negative Negative : < 25 ng/ml [facility] Cannabinoids Screen Urine Positive(A) Negative : <50 ng/mL [facility] Comment: Positive urine cannabinoids (THC) screening results should be confirmed by another generally accepted non-immunological method such as gas chromatography or mass spectrometry. ? Methadone Screen Urine Negative Negative : < 300 ng/mL [facility] Urine specimen (specimen) URINE / Unknown 07/12/2016 3:54 PM STRUCTURAL STEEL WORKER APPRENTICE 07/12/2016 3:57 PM STRUCTURAL STEEL WORKER APPRENTICE [facility] - 07/12/2016 4:12 PM STRUCTURAL STEEL WORKER APPRENTICE The Urine Toxicology Screening Panel does not screen for Propoxyphene, Meprobamate, Carisoprodol, Trazodone, ippq-obp-xrqvggy medications and/or volatiles (Acetone, Isopropanol, Methanol or Ethylene Glycol). Ethanol, Salicylate, Acetaminophen, Tricyclic Antidepressants and several therapeutic drugs may be individually assayed in serum or plasma specimen. Toxicology testing by the [facility] is an aid to medical diagnosis and treatment of patients. No documented chain of custody was maintained. Results are intended to be used for clinical purposes only. ? Bib Arenas MD LAB - URINE CHEMISTR Y ORDERABLES Performing Organization Address [facility] Co de Phone Number [address] [phone] * (ABNORMAL) URINALYSIS REFLEX TO MICROSCOPIC NO CULTURE (07/12/2016 3:54 PM STRUCTURAL STEEL WORKER APPRENTICE) Color UA Yellow Straw, Yellow, Colorless, Light Yellow [facility] Clarity UA Hazy(A) Clear [facility] Specific [place] UA 1.012 1.001 - 1.030 [facility] pH UA 8.5(H) 5.0 - 8.0 [facility] Protein UA Trace(A) <=20 mg/dL [facility] Glucose UA Negative Negative mg/dL [facility] Ketone UA 40(A) Negative mg/dL [facility] Bilirubin UA Negative Negative mg/dL [facility] Blood UA Negative Negative [facility] Nitrite UA Negative Negative [facility] Leukocyte Esterase Trace(A) Negative [facility] Urobilinogen UA <2.0 <2.0 mg/dL [facility] RBC UA 4 0 - 8 /HPF [facility] WBC UA 3(H) 0 - 2 /HPF [facility] Bacteria UA Many(A) Rare, Occasional, None /HPF [facility] Squamous Epithelial Cells UA <1 0 - 1 /HPF [facility] Mucus UA Many(A) None /LPF [facility] Urine specimen (specimen) 07/12/2016 3:54 PM STRUCTURAL STEEL WORKER APPRENTICE 07/12/2016 3:57 PM STRUCTURAL STEEL WORKER APPRENTICE Bib Arenas MD LAB - URINALYSIS ORD ERABLES Performing Organization Address [facility]/ZIP Co de Phone Number [address] [phone] * XR THORACIC SPINE 2VW (07/12/2016 3:21 PM STRUCTURAL STEEL WORKER APPRENTICE) Anatomical Region Laterality Modality Spine Other Impressions 07/13/2016 8:30 AM STRUCTURAL STEEL WORKER APPRENTICE IMPRESSION: The patient is status post instrumented posterior spinal fusion from C5 through T12 with paired vertical rods, pedicle screws, and a cerclage wire. The instrumentation appears intact without evidence of failure. A T6 compression fracture is unchanged. No new fractures are identified. The spinal alignment is normal. Dictated by Peter Pineda MD (resident service coordinator). Dr. KATHERINE Muller M.D. have personally reviewed and interpreted this examination/study. This report was electronically signed by KATHERINE HO M.D. ??on 07/13/2016 8:30 AM . Narrative 07/13/2016 8:30 AM STRUCTURAL STEEL WORKER APPRENTICE EXAMINATION: XR SPINE THORACIC 2 VWS HISTORY: [...] status post instrumented posterior spinal fusion from [id number] T12 with paired vertical rods, pedicle screws, and a cerclagewire. The instrumentation appears intact without evidence of failure. A [id number] fracture is unchanged. No new fractures are identified. The spinal alignment is normal. Dictated by Peter Pineda MD (resident service coordinator). Dr. KATHERINE Muller M.D. have personally reviewed and interpreted thisexamination/study. This report was electronically signed by KATHERINE HO M.D. on 07/13/20168:30 AM . Bib Arenas MD DIAGNOSTIC IMAGING O RDERABLES * (ABNORMAL) CBC W AUTO DIFFERENTIAL (07/12/2016 2:31 PM STRUCTURAL STEEL WORKER APPRENTICE) WBC 8.6 3.5 - 10.5 10? 3 /uL [facility] RBC 4.93 3.90 - 5.00 10? 6 /uL [facility] Hemoglobin 16.6(H) 12.0 - 15.5 g/dL [facility] Hematocrit 46.0(H) 35.0 - 45.0 % [facility] MCV 93.3 81.0 - 97.0 fL [facility] MCH 33.7 28.0 - 34.0 pg [facility] MCHC 36.1(H) 32.0 - 36.0 g/dL [facility] Platelet Count 197 150 - 400 10? 3 /uL [facility] RDW-SD 46.7 36.0 - 50.0 fL [facility] RDW-CV 13.6 11.2 - 14.8 % [facility] MPV 8.8(L) 9.3 - 12.8 fL [facility] Neutrophils % 74.8(H) 35.0 - 70.0 % [facility] Lymphocytes % 18.1(L) 19.7 - 55.1 % [facility] Monocytes % 5.0 3.0 - 15.0 % [facility] Eosinophils % 1.9 0.0 - 6.0 % [facility] Basophil % 0.2 0.0 - 1.5 % [facility] Neutrophils Absolute 6.4 1.6 - 7.0 10? 3 /uL [facility] Lymphocyte Absolute 1.6 0.8 - 2.9 10? 3 /uL [facility] Monocytes Absolute 0.43 0.14 - 0.66 10? 3 /uL [facility] Eosinophils Absolute 0.16 0.00 - 0.22 10? 3 /uL [facility] Basophils Absolute 0.02 0.00 - 0.06 10? 3 /uL [facility] Immature Granulocytes % 0.3 0.0 - 1.0 % [facility] Blood specimen (specimen) BLOOD SPECIMEN / Unknown 07/12/2016 2:31 PM STRUCTURAL STEEL WORKER APPRENTICE 07/12/2016 2:36 PM STRUCTURAL STEEL WORKER APPRENTICE Bib Arenas MD LAB - HEMATOLOGY ORD ERABLES [address] [phone] * MAGNESIUM BLOOD (07/12/2016 2:31 PM STRUCTURAL STEEL WORKER APPRENTICE) Magnesium 2.2 1.6 - 2.6 mg/dL [facility] Blood specimen (specimen) BLOOD SPECIMEN / Unknown 07/12/2016 2:31 PM STRUCTURAL STEEL WORKER APPRENTICE 07/12/2016 2:36 PM STRUCTURAL STEEL WORKER APPRENTICE Bib Arenas MD LAB - CHEMISTRY [facility] [address] [phone] * (ABNORMAL) COMPREHENSIVE METABOLIC PANEL (07/12/2016 2:31 PM STRUCTURAL STEEL WORKER APPRENTICE) BUN 9 7 - 26 mg/dL [facility] Creatinine 0.7 0.6 - 1.2 mg/dL [facility] Sodium 143 136 - 145 mmol/L [facility] Potassium 3.2(L) 3.5 - 4.5 mmol/L [facility] Chloride 107 98 - 107 mmol/L [facility] CO2 21(L) 22 - 29 mmol/L [facility] Glucose 103 70 - 115 mg/dL [facility] Calcium 10.0 8.4 - 10.2 mg/dL [facility] Protein Total 7.7 6.0 - 8.3 g/dL [facility] Albumin 4.0 3.4 - 5.0 g/dL [facility] Bilirubin Total 1.0 0.2 - 1.2 mg/dL [facility] Alkaline Phosphatase 105 40 - 150 Units/L [facility] ALT 42 0 - 55 Units/L [facility] AST 35(H) 5 - 34 Units/L [facility] Anion Gap 18 8 - 18 [facility] BUN/Creatinine Ratio 13 7 - 23 [facility] Osmolality Calculated 295 270 - 300 mOsm/kg [facility] Albumin/Globulin Ratio 1.1 1.1 - 2.3 [facility] eGFR >60 >60 mL/min/1.7 3 m2 [facility] Blood specimen (specimen) BLOOD SPECIMEN / Unknown 07/12/2016 2:31 PM STRUCTURAL STEEL WORKER APPRENTICE 07/12/2016 2:36 PM STRUCTURAL STEEL WORKER APPRENTICE Bib Arenas MD LAB - CHEMISTRY [facility] [address] [phone] * CBC W AUTO DIFFERENTIAL (07/12/2016 2:31 PM STRUCTURAL STEEL WORKER APPRENTICE) Blood specimen (specimen) BLOOD SPECIMEN / Unknown 07/12/2016 2:31 PM STRUCTURAL STEEL WORKER APPRENTICE Narrative [facility] - 07/12/2016 2:46 PM STRUCTURAL STEEL WORKER APPRENTICE The following orders were created for panel order CBC w Differential. Procedure ? Abnormality ? Status ? --------- ? ------ ? CBC WITH DIFFERENTIAL[[id number]] ? Abnormal ?Final result ? Please view results for these tests on the individual orders. Bib Arenas MD LAB - HEMATOLOGY ORD ERABLES [facility] [address] documented in this encounter Visit Diagnoses Diagnosis Anesthesia of skin Disturbance of skin sensation Paresthesia of skin Disturbance of skin sensation documented in this encounter Care Teams Coal Yard Supervisor Relationship Specialty Start Date End Date Blake Lindsey MD [address] [place] [address] PCP - General 05/20/16 documented as of this encounter
--- OUTSIDE RECORDS SUMMARY | 2024-07-29 17:51 | XMS_ITS | Encounter Summary ---
Author Organization [facility] Health Address [address] [facility] [place] [address] Care Team Providers Care Stripper And Opaquer Apprentice Name Role Phone Blake Lindsey MD Primary Care Provider [phone] Encounter Details Date Type Department Care Team (Latest Contact Info) Description 09/21/2016 Hospital Outpatient Visit Historic [facility] [address] [place] [address] Rachael Black MD [address] [facility] [place] [address] Discharge Disposition: Home or Self Care Social [...] on filedocumented in this encounter Care Teams Stripper And Opaquer Apprentice Relationship Specialty Start Date End Date Blake Lindsey MD [address] [place] [address] PCP - General 05/20/16 documented as of this encounter
--- OUTSIDE RECORDS SUMMARY | 2024-07-29 17:51 | XMS_ITS | Encounter Summary ---
Author Organization [facility] Health Address [address] [facility] [place] [address] Care Team Providers Care Event Marketing Manager Name Role Phone Blake Lindsey MD Primary Care Provider [phone] Encounter Details Date Type Department Care Team (Late st Contact Info) Description 10/23/2018 Orders Only [facility] [address] Reba Du RN Hodgkin lymphoma, unspecified Hodgkin [...] 125 - 243 Units/L 11/17/2018 2:20 PM [facility] Blood BLOOD SPECIMEN / Unknown Lab Venipuncture / Unknown 11/17/2018 1:34 PM CDT 11/17/2018 1:43 PM CDT Castillo Max MD LAB - CHEMISTRY OR DERABLES Performing Organization Address City/State/[facility] Co de Phone Number [facility] [address] [phone] * COMPREHENSIVE METABOLIC PANEL (11/17/2018 1:34 PM CDT) BUN 13 7 - 26 mg/dL 11/17/2018 2:20 PM [facility] Creatinine 0.8 0.6 - 1.2 mg/dL 11/17/2018 2:20 PM [facility] Sodium 141 136 - 145 mmol/L 11/17/2018 2:20 PM [facility] Potassium 3.7 3.5 - 4.5 mmol/L 11/17/2018 2:20 PM [facility] Chloride 104 98 - 107 mmol/L 11/17/2018 2:20 PM [facility] CO2 28 22 - 29 mmol/L 11/17/2018 2:20 PM [facility] Glucose 102 70 - 115 mg/dL 11/17/2018 2:20 PM [facility] Calcium 10.1 8.4 - 10.2 mg/dL 11/17/2018 2:20 PM [facility] Protein Total 7.2 6.0 - 8.3 g/dL 11/17/2018 2:20 PM [facility] Albumin 3.9 3.4 - 5.0 g/dL 11/17/2018 2:20 PM [facility] Bilirubin Total 0.4 0.2 - 1.2 mg/dL 11/17/2018 2:20 PM [facility] Alkaline Phosphatase 93 40 - 150 Units/L 11/17/2018 2:20 PM [facility] ALT 54 0 - 55 Units/L 11/17/2018 2:20 PM [facility] AST 28 5 - 34 Units/L 11/17/2018 2:20 PM [facility] Anion Gap 13 8 - 18 11/17/2018 2:20 PM [facility] BUN/Creatinine Ratio 16 7 - 23 11/17/2018 2:20 PM [facility] Osmolality Calculated 292 270 - 300 mOsm/kg 11/17/2018 2:20 PM [facility] Albumin/Globulin Ratio 1.2 1.1 - 2.3 11/17/2018 2:20 PM [facility] eGFR >60 >60 mL/min/1.7 3 m2 11/17/2018 2:20 PM [facility] Blood BLOOD SPECIMEN / Unknown Lab Venipuncture / Unknown 11/17/2018 1:34 PM CDT 11/17/2018 1:43 PM CDT Castillo Max MD LAB - CHEMISTRY OR DERABLES Performing Organization Address City/State/[facility] Co de Phone Number [facility] [address] [place] [address] * (ABNORMAL) CBC WITH DIFFERENTIAL (11/17/2018 1:34 PM CDT) WBC 11.3(H) 3.5 - 10.5 10? 3 /uL 11/17/2018 1:37 PM [facility] RBC 4.62 3.90 - 5.00 10? 6 /uL 11/17/2018 1:37 PM [facility] Hemoglobin 15.3 12.0 - 15.5 g/dL 11/17/2018 1:37 PM [facility] Hematocrit 44.5 35.0 - 45.0 % 11/17/2018 1:37 PM [facility] MCV 96.3 81.0 - 97.0 fL 11/17/2018 1:37 PM [facility] MCH 33.1 28.0 - 34.0 pg 11/17/2018 1:37 PM [facility] MCHC 34.4 32.0 - 36.0 g/dL 11/17/2018 1:37 PM [facility] Platelet Count 208 150 - 400 10? 3 /uL 11/17/2018 1:37 PM [facility] RDW-SD 46.4 36.0 - 50.0 fL 11/17/2018 1:37 PM [facility] RDW-CV 13.2 11.2 - 14.8 % 11/17/2018 1:37 PM [facility] MPV 8.3(L) 9.3 - 12.8 fL 11/17/2018 1:37 PM [facility] nRBC Absolute 0.00 0 10? 3 /uL 11/17/2018 1:37 PM [facility] nRBC Auto 0.0 0 /100 WBC 11/17/2018 1:37 PM [facility] Neutrophils % 70.7(H) 35.0 - 70.0 % 11/17/2018 1:37 PM [facility] Lymphocytes % 20.7 19.7 - 55.1 % 11/17/2018 1:37 PM [facility] Monocytes % 6.5 3.0 - 15.0 % 11/17/2018 1:37 PM [facility] Eosinophils % 1.2 0.0 - 6.0 % 11/17/2018 1:37 PM [facility] Basophil % 0.4 0.0 - 1.5 % 11/17/2018 1:37 PM [facility] Neutrophils Absolute 8.0(H) 1.6 - 7.0 10? 3 /uL 11/17/2018 1:37 PM [facility] Lymphocyte Absolute 2.4 0.8 - 2.9 10? 3 /uL 11/17/2018 1:37 PM [facility] Monocytes Absolute 0.74(H) 0.14 - 0.66 10? 3 /uL 11/17/2018 1:37 PM [facility] Eosinophils Absolute 0.14 0.00 - 0.45 10? 3 /uL 11/17/2018 1:37 PM [facility] Basophils Absolute 0.05 0.00 - 0.06 10? 3 /uL 11/17/2018 1:37 PM [facility] Immature Granulocytes % 0.5 0.0 - 1.0 % 11/17/2018 1:37 PM [facility] Blood BLOOD SPECIMEN / Unknown Lab Venipuncture / Unknown 11/17/2018 1:34 PM CDT 11/17/2018 1:35 PM CDT Castillo Max MD LAB - HEMATOLOGY O RDERABLES [address] [phone] documented in this encounter Visit Diagnoses Diagnosis Hodgkin lymphoma, unspecified Hodgkin lymphoma type, unspecified body region (HCC)- Primary documented in this encounter Care Teams Event Marketing Manager Relationship Specialty Start Date End Date Blake Lindsey MD [address] [place] [address] PCP - General 05/20/16 documented as of this encounter
--- OUTSIDE RECORDS SUMMARY | 2024-07-29 17:51 | XMS_ITS | Encounter Summary ---
Author Organization [facility] Health Address [address] [facility] [place] [address] Care Team Providers Care Insurance Service Representative Name Role Phone Blake Lindsey MD Primary Care Provider [phone] Encounter Details Date Type Department Care Team (Latest Contact Info) Description 01/19/2019 3:05 PM CDT - 01/19/2019 11:59 PM CDT Hospital Encounter [facility] [address] [facility] [place] [address] Castillo Max MD [address] [place] [address] Rd [address] [place] [address] Discharge Disposition: Home or Self [...] Name Priority Date/Time Associated Diagnosis Comments PTT [facility] 01/19/2019 3:14 PM CDT Night sweats History of bruising easily PT-INR [facility] 01/19/2019 3:14 PM CDT Night sweats History of bruising easily LH [facility] 01/19/2019 3:14 PM CDT Night sweats FSH [facility] 01/19/2019 3:14 PM CDT Night sweats ESTRADIOL [facility] 01/19/2019 3:14 PM CDT Night sweats documented in this encounter Results * PTT [facility] (01/19/2019 3:14 PM CDT) APTT 31.0 23.0 - 38.4 Seconds 01/19/2019 3:53 PM CDT [facility] Comment: * Please Note: New therapeutic range for heparin therapy. * Suggested therapeutic range for full dose I.V. heparin therapy for venous thromboembolism is 65 to 103 seconds. Blood BLOOD SPECIMEN / Unknown Lab Venipuncture / Unknown 01/19/2019 3:14 PM CDT 01/19/2019 3:22 PM CDT Castillo Max MD LAB - COAGULATION ORDERABLES Performing Organization Address [facility] de Phone Number [address] [phone] * PT-INR [facility] (01/19/2019 3:14 PM CDT) PT 12.3 12.1 - 14.8 Seconds 01/19/2019 3:52 PM CDT [facility] INR 1.0 See Comment 01/19/2019 3:52 PM CDT [facility] Comment: The suggested therapeutic range [...] Organization Address [facility] de Phone Number [address] [phone] * (01/19/2019 3:14 PM CDT) LH 37.4 mIU/mL 01/21/2019 7:11 AM CDT [facility] ([facility]) Comment: ?Adult Female: ?Follicular phase ?2.4 - ??12.6 ?Ovulation phase ?14.0 - ??95.6 ?Luteal phase ?1.0 - ??11.4 ?Postmenopausal ?7.7 - ??58.5 Blood BLOOD SPECIMEN / Unknown Lab Venipuncture / Unknown 01/19/2019 3:14 PM CDT 01/19/2019 3:22 PM CDT Narrative [facility] ([facility]) - 01/21/2019 7:11 AM CDT Performed at: ??01 - [facility] [address] [place], [place] ??[id number] Diabetes Nurse: Edison Chavez PhD, Phone: ??[phone] Castillo Max MD LAB - CHEMISTRY OR DERABLES [facility] ([facility]) [address] [place] [address] * ESTRADIOL (01/19/2019 3:14 PM CDT) Estradiol 7.2 pg/mL 01/21/2019 4:08 AM CDT [facility] ([facility]) Comment: ?Adult Female: ?Follicular phase ?? 12.5 - ?? 166.0 ?Ovulation phase ?85.8 - ?? 498.0 ?Luteal phase ? 43.8 - ?? 211.0 ?Postmenopausal ? <6.0 - ?54.7 ?1st trimester ? 215.0 - >4300.0 ?Girls (1-10 years) ?6.0 - ?27.0 Luis ECLIA methodology Blood BLOOD SPECIMEN / Unknown Lab Venipuncture / Unknown 01/19/2019 3:14 PM CDT 01/19/2019 3:22 PM CDT Narrative [facility] ([facility]) - 01/21/2019 4:08 AM CDT Performed at: ??01 - [facility] [address] [place], [place] ??[id number] Diabetes Nurse: Edison Chavez PhD, Phone: ??[phone] Castillo Max MD LAB - CHEMISTRY OR DERABLES [facility] ([facility]) [address] [place] [address] * FSH (01/19/2019 3:14 PM CDT) FSH 68.5 mIU/mL 01/21/2019 7:11 AM CDT [facility] ([facility]) Comment: ?Adult Female: ?Follicular phase ?3.5 - ??12.5 ?Ovulation phase ? 4.7 - ??21.5 ?Luteal phase ?1.7 - ?? 7.7 ?Postmenopausal ? 25.8 - 134.8 Blood BLOOD SPECIMEN / Unknown Lab Venipuncture / Unknown 01/19/2019 3:14 PM CDT 01/19/2019 3:22 PM CDT Narrative [facility] ([facility]) - 01/21/2019 7:11 AM CDT Performed at: ??01 - [facility] [address] [facility] [place], [place] ??[id number] Diabetes Nurse: Edison Chavez PhD, Phone: ??[phone] Castillo Max MD LAB - CHEMISTRY OR DERABLES [facility] ([facility]) [address] [place] [address] documented in this encounter Visit Diagnoses Diagnosis Night sweats Generalized hyperhidrosis History of bruising easily documented in this encounter Care Teams Insurance Service Representative Relationship Specialty Start Date End Date Blake Lindsey MD [address] [place] [address] PCP - General 05/20/16 documented as of this encounter
--- OUTSIDE RECORDS SUMMARY | 2024-07-29 17:51 | XMS_ITS | Encounter Summary ---
Author Organization [facility] Health Address [address] [facility] [place] [address] Care Team Providers Care Visual Aid Expert Name Role Phone Blake Lindsey MD Primary Care Provider [phone] Encounter Details Date Type Department Care Team (Late st Contact Info) Description 06/06/2020 Orders Only [facility] [address] Reba Du RN Hodgkin lymphoma, unspecified Hodgkin [...] type documented in this encounter Care Teams Visual Aid Expert Relationship Specialty Start Date End Date Blake Lindsey MD [address] [place] [address] PCP - General 05/20/16 documented as of this encounter
--- OUTSIDE RECORDS SUMMARY | 2024-07-29 17:51 | XMS_ITS | Encounter Summary ---
Author Organization [facility] Health Address [address] [facility] [place] [address] Care Team Providers Care Otr Hazmat Company Driver Name Role Phone Blake Lindsey MD Primary Care Provider [phone] Encounter Details Date Type Department Care Team (Late st Contact Info) Description 08/08/2018 Orders Only [facility] [address] [place] [phone] Dave Wadsworth RN Thoracic back pain, [...] ENTIRE 2 OR 3VW (08/08/2018 10:37 AM TURRET PUNCH PRESS OPERATOR) Anatomical Region Laterality Modality Radiographic Jonna ging 08/08/2018 4:03 PM TURRET PUNCH PRESS OPERATOR Impressions 08/09/2018 8:54 AM TURRET PUNCH PRESS OPERATOR IMPRESSION: 1.C5-T12 posterior spinal fusion, unchanged. 2.T6 compression deformity, unchanged. Dictated by Frantz Loaiza MD (vice president sales). Dr. EMIL Muller MD have personally reviewed and interpreted this examination/study. This report was electronically signed by EMIL MALONE MD ??on 08/09/2018 8:54 AM . Narrative 08/09/2018 8:54 AM TURRET PUNCH PRESS OPERATOR EXAMINATION: XR SPINE ENTIRE 2 OR 3VW [...] mild degeneration is seen. Procedure Note Emil Maolne MD - 08/09/2018 EXAMINATION: XR SPINE ENTIRE [...] deformity, unchanged. Dictated by Frantz Loaiza MD (vice president sales). Dr. EMIL Muller MD have personally reviewed and interpreted this examination/study. This report was electronically signed by EMIL MALONE MD on08/09/2018 8:54 AM . Pooria Salari MD DIAGNOSTIC IMAGING O RDERABLES documented in this encounter Visit Diagnoses Diagnosis Thoracic back pain, unspecified back pain laterality, unspecified chronicity- Primary documented in this encounter Care Teams Otr [employer]mat [employer] Driver Relationship Specialty Start Date End Date Blake Linsdey MD [address] [place] [address] PCP - General 05/20/16 documented as of this encounter
--- OUTSIDE RECORDS SUMMARY | 2024-07-29 17:51 | XMS_ITS | Encounter Summary ---
Author Organization [facility] Health Address [address] [facility] [place] [address] Care Team Providers Care Granulating Blender Name Role Phone Blake Lindsey MD Primary Care Provider [phone] Encounter Details Date Type Department Care Team (Late st Contact Info) Description 09/09/2016 [facility] - Orthopedics [address] [place] [phone] Wai Lowry MD [address] [place] [address] [place] [address] Discharge Disposition: Home or Self [...] on filedocumented in this encounter Care Teams Granulating Blender Relationship Specialty Start Date End Date Blake Lindsey MD [address] [place] [address] PCP - General 05/20/16 documented as of this encounter
--- OUTSIDE RECORDS SUMMARY | 2024-07-29 17:51 | XMS_ITS | Encounter Summary ---
Author Organization [facility] Health Address [address] [facility] [place] [address] Care Team Providers Care Magnetic Tester Name Role Phone Blake Lindsey MD Primary Care Provider [phone] Encounter Details Date Type Department Care Team (Late st Contact Info) Description 06/05/2019 Orders Only [facility] [place] [address] Steven Gill, RN Social History [...] on filedocumented in this encounter Care Teams Magnetic Tester Relationship Specialty Start Date End Date Blake Lindsey MD [address] [place] [address] PCP - General 05/20/16 documented as of this encounter
--- OUTSIDE RECORDS SUMMARY | 2024-07-29 17:51 | XMS_ITS | Encounter Summary ---
Author Organization [facility] Health Address [address] [facility] [address] Care Team Providers Care Hvac Installer Name Role Phone Blake Lindsey MD Primary Care Provider [phone] Reason for Referral * Radiology Services (Routine) - Closed Specialty Diagnoses / Procedures Referred By Contac t Referred To Contact Positron Emission Tomography Diagnoses Hodgkin lymphoma of extranodal or solid organ site (HCC) Hodgkin lymphoma, unspecified Hodgkin lymphoma type, unspecified body region (HCC) Procedures PET CT WHOLE BODY Castillo Max MD [address] [place] [address] [address] [place] [address] [facility] [place] [address] [place] [phone] Referral ID Status Reason Start Date Expiration Date Visits Re quested Visits Authorized [id number] Closed 01/19/2019 07/18/2019 1 1 Encounter Details Date Type Department Care Team (Late st Contact Info) Description 01/19/2019 Orders Only [facility]-[address] [address] Reba Du RN Hodgkin lymphoma, unspecified Hodgkin [...] Castillo Max MD NM ORDERABLES * PTT [facility] (01/19/2019 3:14 PM CDT) APTT 31.0 23.0 - 38.4 Seconds 01/19/2019 3:53 PM CDT [facility] Comment: * Please Note: New therapeutic range for heparin therapy. * Suggested therapeutic range for full dose I.V. heparin therapy for venous thromboembolism is 65 to 103 seconds. Blood BLOOD SPECIMEN / Unknown Lab Venipuncture / Unknown 01/19/2019 3:14 PM CDT 01/19/2019 3:22 PM CDT Castillo Max MD LAB - COAGULATION ORDERABLES [address] [phone] * PT-INR [facility] (01/19/2019 3:14 PM CDT) PT 12.3 12.1 - 14.8 Seconds 01/19/2019 3:52 PM CDT [facility] INR 1.0 See Comment 01/19/2019 3:52 PM CDT [facility] Comment: The suggested therapeutic range for standard coumadin (warfarin) therapy is an INR of 2.0-3.0. For high-risk patients (Mechanical Mitral Valve Prosthesis, etc.), the suggested prophylactic therapeutic range is an INR of 2.5-3.5. Blood BLOOD SPECIMEN / Unknown Lab Venipuncture / Unknown 01/19/2019 3:14 PM CDT 01/19/2019 3:22 PM CDT Castillo Max MD LAB - COAGULATION ORDERABLES [facility] [address] [phone] * (01/19/2019 3:14 PM CDT) Pathologist [facility] 37.4 mIU/mL 01/21/2019 7:11 AM CDT [facility] ([facility]) Comment: ?Adult Female: ?Follicular phase ?2.4 - ??12.6 ?Ovulation phase ?14.0 - ??95.6 ?Luteal phase ?1.0 - ??11.4 ?Postmenopausal ?7.7 - ??58.5 Blood BLOOD SPECIMEN / Unknown Lab Venipuncture / Unknown 01/19/2019 3:14 PM CDT 01/19/2019 3:22 PM CDT Narrative [facility] ([facility]) - 01/21/2019 7:11 AM CDT Performed at: ??01 - [facility] [address], [place], [place] ??[id number] Pre Sales Technical Consultant: Edison Chavez PhD, Phone: ??[phone] Castillo Max MD LAB - CHEMISTRY OR DERABLES [facility] ([facility]) [address] [place] [address] * ESTRADIOL (01/19/2019 3:14 PM CDT) Estradiol 7.2 pg/mL 01/21/2019 4:08 AM CDT [facility] ([facility]) Comment: ?Adult Female: ?Follicular phase [...] CDT 01/19/2019 3:22 PM CDT Narrative [facility] ([facility]) - 01/21/2019 4:08 AM CDT Performed at: ??01 - [facility] [address] [facility], [place], [place] ??[id number] Pre Sales Technical Consultant: Edison Chavez PhD, Phone: ??[phone] Castillo Max MD LAB - CHEMISTRY OR DERABLES Performing Organization Address [place] Co de Phone Number [facility] ([facility]) [address] * [facility] (01/19/2019 3:14 PM CDT) [facility] 68.5 mIU/mL 01/21/2019 7:11 AM CDT [facility] ([facility]) Comment: ?Adult Female: ?Follicular phase ?3.5 - ??12.5 ?Ovulation phase ? 4.7 - ??21.5 ?Luteal phase ?1.7 - ?? 7.7 ?Postmenopausal ? 25.8 - 134.8 Blood BLOOD SPECIMEN / Unknown Lab Venipuncture / Unknown 01/19/2019 3:14 PM CDT 01/19/2019 3:22 PM CDT Narrative [facility] ([facility]) - 01/21/2019 7:11 AM CDT Performed at: ??01 - [facility] [place] [address] [place], [place] ??[id number] Pre Sales Technical Consultant: Edison Chavez PhD, Phone: ??[phone] Castillo Max MD LAB - CHEMISTRY OR DERABLES Performing Organization Address [place] de Phone Number [facility] ([facility]) [address] [place] [place] [id number] documented in this encounter Visit Diagnoses Diagnosis Hodgkin lymphoma, unspecified Hodgkin lymphoma type, unspecified body region (HCC)- Primary Night sweats Generalized hyperhidrosis History of bruising easily Hodgkin lymphoma, unspecified Hodgkin lymphoma type, unspecified body region (HCC) documented in this encounter Care Teams Hvac Installer Relationship Specialty Start Date End Date Blake Lindsey MD [address] [place] [phone] PCP - General 05/20/16 documented as of this encounter
--- OUTSIDE RECORDS SUMMARY | 2024-07-29 17:51 | XMS_ITS | Encounter Summary ---
Author Organization [facility] Health Address [address] [place] [address] Care Team Providers Care Study Abroad Coordinator Name Role Phone Blake Lindsey MD Primary Care Provider [phone] Reason for Visit * Reason Comments Depression patient tearful, dep ressed. patient states, Too many things piling up at once patient denies SI/HI at this time. Encounter Details Date Type Department Care Team (Late st Contact Info) Description 06/12/2018 3:09 PM TELEPHONE SUPERVISOR - 06/12/2018 3:36 PM [facility] Emergency [facility] [address] [place] [phone] Depression, unspecified depression type Discharge Disposition: Home [...] Comments Blood Pressure 145/93 06/12/2018 2:52 PM TELEPHONE SUPERVISOR Pulse 95 06/12/2018 2:52 PM TELEPHONE SUPERVISOR Temperature 36.8 ??C (98.3 ??F) 06/12/2018 2:52 PM CS T Respiratory Rate 18 06/12/2018 2:52 PM TELEPHONE SUPERVISOR Oxygen Saturation 97% 06/12/2018 2:52 PM TELEPHONE SUPERVISOR Inhaled Oxygen Concentration - - Weight 99.8 kg (220 lb) 06/12/2018 2:52 PM TELEPHONE SUPERVISOR Height 160 cm (5' 3 ) 06/12/2018 2:52 PM TELEPHONE SUPERVISOR Body Mass Index 38.97 06/12/2018 2:52 PM TELEPHONE SUPERVISOR documented in this encounter Discharge Instructions * Discharge Instructions* Loi Vaughn, JUWAN-BOOMBOAT OPERATOR - 06/12/2018 3:16 PM TELEPHONE SUPERVISOR Depression WHAT YOU NEED TO KNOW: Depression [...] if needed: ?? National Suicide Prevention Lifeline: (3-858-105-TALK) ?? Suicide Hotline: (7-814-EGNRFYH) ?? For a list of international numbers: [...] ask them during your visits. ?? Copyright [employer] 2018 Information is for End User's use only and may not be sold, redistributed or otherwise used for commercial purposes. All illustrations and images included in CareNotes?? are the copyrighted property of [employer] or [employer] The above information is an educational director only. It is not intended as medical advice for individual conditions or treatments. Talk to your doctor, nurse or pharmacist before following any medical regimen to see if it is safe and effective for you. PHONE SUPERVISOR documented in this encounter Medications at Time [...] Take by mouth. 09/09/2016 11/17/2018 nystatin (MYCOSTATIN) 354185 UNIT/GM powder 0 09/24/20172018 omeprazole (PRILOSEC) 20 [...] PM CST Pt has been speaking with aircraft layout worker regarding where she can go to talk to someone about her feelings of depression, denies she is suicidal or homicidal, she is agreeable to discharge with paperwork to call for appointment with therapist, understands to call 911 or suicide hotline if feelings of depressionworsen and turn to suicidal feelings PHONE SUPERVISOR * Loi Vaughn, CHART PICKER-BOOMBOAT OPERATOR - 06/12/2018 3:09 PM CST Provider contact with the patient: 06/12/2018 15:09 Lakeisha Alejandra [id number] [facility] History Chief Complaint Patient presents with ??? Depression patient tearful, depressed. patient states, Too many things piling up at once patient denies SI/HI at this time. Patient is a 47 y.o. female presenting with mental health disorder. 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 litharge supervisor used: No Behavioral Health Concerns Presenting symptoms: [...] years ago she had an admission in [place]) Past Medical History: Diagnosis Date ??? High [...] ??? Furosemide (LASIX PO) ??? nystatin (MYCOSTATIN) [id number] UNIT/GM powder 0 ??? pregabalin (LYRICA) 75 [...] Impression Final diagnoses: Depression, unspecified depression type PHONE SUPERVISOR documented in this encounter Plan of Treatment Not on file documented as of this encounter Visit Diagnoses Diagnosis Depression, unspecified depression type documented in this encounter Care Teams Study Abroad Coordinator Relationship Specialty Start Date End Date Blake Lindsey MD [address] [place] [address] PCP - General 05/20/16 documented as of this encounter
--- OUTSIDE RECORDS SUMMARY | 2024-07-29 17:51 | XMS_ITS | Encounter Summary ---
Author Organization [facility] Health Address [address] [facility] [place] [address] Care Team Providers Care Channeler Name Role Phone Blake Lindsey MD Primary Care Provider [phone] Encounter Details Date Type Department Care Team (Late st Contact Info) Description 07/11/2020 12:30 PM COMMERCIAL FRONT LOAD DRIVER Testing Visit [facility] [address] [facility], [place] [id number] Lowe Leann, AuD [address] [facility] [address] [place] [address] Otalgia of both ears Social History Tobacco [...] AUDIOLOGY/TYMPANOME TRY ORDER Routine 07/11/2020 12:37 PM COMMERCIAL FRONT LOAD DRIVER documented in this encounter Results * AUDIOLOGY/TYMPANOMETRY ORDER (07/11/2020 12:37 PM COMMERCIAL FRONT LOAD DRIVER) Narrative Leann Cross AuD - 07/11/2020 12:52 PM COMMERCIAL FRONT LOAD DRIVER History: Lakeisha Alejandra is a 49 year [...] change in hearing is suspected. Andrea Galeano. [facility]-A Clinical Software Build Engineer [facility]-Department of Otolaryngology/Audiology [facility] [address] [place] [address] ([facility]) [place] [address] Leann Mendez AUDIOLOGY SERVICES O RDERABLES documented in this encounter Visit Diagnoses Diagnosis Otalgia of both ears- Primary Otalgia, unspecified documented in this encounter Care Teams Channeler Relationship Specialty Start Date End Date Blake Lindsey MD [address] [place] [address] PCP - General 05/20/16 documented as of this encounter
--- OUTSIDE RECORDS SUMMARY | 2024-07-29 17:51 | XMS_ITS | Encounter Summary ---
Author Organization [facility] Health Address [address] [facility] [facility] [place] [address] Care Team Providers Care Sugar Cane Planting Equipment Operator Name Role Phone Blake Lindsey MD Primary Care Provider [phone] Reason for Visit * Reason Comments Pain Neck Establish Care * Consultation (Routine) - Closed Specialty Diagnoses / Procedures Referred By Ariel t Referred To Contact Pain Management Diagnoses Low back pain, unspecified back pain laterality, unspecified chronicity, with sciatica presence unspecified Zuleika Mckeon MD [address] [place] [address] Andrea Ornelas MD [address] [place] [address] Referral ID Status Reason Start Date Expiration Date V isits Requested Visits Authorized [id number] Closed Specialty Services Required 08/08/2018 02/04/2019 1 1 Encounter Details Date Type Department Care Team (Late st Contact Info) Description 09/15/2018 10:00 AM BRIDGE REPAIR CREW PERSON Office Visit [facility] Pain Care [address] [place] [address] Zuleika Mckeon MD [address] [facility] [place] [address] Andrea Ornelas MD [facility] [address] [address] Cervicalgia (Primary Dx); Low back pain, unspecified [...] Comments Blood Pressure 130/88 09/15/2018 9:32 AM BRIDGE REPAIR CREW PERSON Pulse 112 09/15/2018 9:32 AM BRIDGE REPAIR CREW PERSON Temperature 35.8 ??C (96.5 ??F) 09/15/2018 9:32 AM CS T Respiratory Rate 20 09/15/2018 9:32 AM BRIDGE REPAIR CREW PERSON Oxygen Saturation - - Inhaled Oxygen Concentration - - Weight 93.8 kg (206 lb 12.8 oz) 09/15/2018 9:32 AM BRIDGE REPAIR CREW PERSON Height 160 cm (5' 3 ) 09/15/2018 9:32 AM BRIDGE REPAIR CREW PERSON Body Mass Index 36.63 09/15/2018 9:32 AM BRIDGE REPAIR CREW PERSON documented in this encounter Patient Instructions * Patient Instructions* Nia Reyez, RT(R) - 09/15/2018 10:11 AM BRIDGE REPAIR CREW PERSON dbs collected today. Will discuss medication management after uds results are discussed. Pt currently seeing psychiatrist for anxiety and depression. Currently using 4% solon pas frequently states they don't work as good as the 5% but insurance wont cover 5% lidocaine. Will order a TENS unit today. GE REPAIR CREW PERSON documented in this encounter Progress Notes * [...] ? BIOPSY ? HX SPINAL FUSION ? MD FEMUR/KNEE SURG UNLISTED ? both knees ??? [...] MCG-UNIT Take by mouth. ? nystatin (MYCOSTATIN) 829043 UNIT/GM powder ? 0 ??? omeprazole (PRILOSEC) [...] Assessment ? ICD-10-CM ?? 1. Cervicalgia M54.2 MD TENS FOUR LEAD 2. Low back pain, unspecified back pain laterality, unspecified chronicity, with sciatica presence unspecified M54.5 AMB REFERRAL TO PAIN CLINIC ? MD TENS FOUR LEAD 3. Primary osteoarthritis of left shoulder M19.012 ? Plan ?? Orders Placed This Encounter ??? MD TENS FOUR LEAD ?? Will f/u with [...] lidocaine. Will order a TENS unit today GE REPAIR CREW PERSON * Indira Hernandez RN - 09/15/2018 9:20 [...] pain that relieves the pain by 20%. GE REPAIR CREW PERSON documented in this encounter H&P Notes * [...] MCG-UNIT Take by mouth. ??? nystatin (MYCOSTATIN) 321449 UNIT/GM powder 0 ??? omeprazole (PRILOSEC) 20 [...] negative bilaterally Assessment ICD-10-CM 1. Cervicalgia M54.2 MD TENS FOUR LEAD 2. Low back pain, unspecified back pain laterality, unspecified chronicity, with sciatica presence unspecified M54.5 AMB REFERRAL TO PAIN CLINIC MD TENS FOUR LEAD 3. Primary osteoarthritis of left shoulder M19.012 Plan Orders Placed This Encounter ??? MD TENS FOUR LEAD Will f/u with PCP [...] there are any additions, they will follow. GE REPAIR CREW PERSON documented in this encounter Plan of Treatment Not on file documented as of this encounter Procedures Procedure Name Priority Date/Time Associated Diagnosis Comments AMB REFERRAL TO PAIN CLINIC Routine 09/16/2018 9:45 AM BRIDGE REPAIR CREW PERSON Low back pain, unspecified back pain laterality, unspecified chronicity, with sciatica presence unspecified documented in this encounter Results * AMB REFERRAL TO PAIN CLINIC (09/16/2018 9:45 AM BRIDGE REPAIR CREW PERSON) Zuleika Mckeon MD OUTPATIENT REFERRALS documented in this encounter Visit Diagnoses Diagnosis Cervicalgia- Primary Low back pain, unspecified back pain laterality, unspecified chronicity, with sciatica presence unspecified Primary osteoarthritis of left shoulder Primary localized osteoarthrosis, shoulder region documented in this encounter Care Teams Sugar Cane Planting Equipment Operator Relationship Specialty Start Date End Date Blake Lindsey MD [address] [place] [address] PCP - General 05/20/16 documented as of this encounter
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
--- OUTSIDE RECORDS SUMMARY | 2024-07-29 17:51 | XMS_ITS | Encounter Summary ---
Author Organization [facility] Health Address [address] [facility] [place] [address] Care Team Providers Care Machine Binder Stripper Name Role Phone Blake Lindsey MD Primary Care Provider Reason for Visit * Reason Comments Pain Knee left knee pain * Evaluate & Treat (Routine) - Closed Specialty Diagnoses / Procedures Referred By Contact Referred To Contact Physician Folded Cloth Taper / Orthopedics Blake Lindsey MD [address] [place] [address] Corrina Peralta PA-C [facility] [place] [address] Referral ID Status Reason Start Date Expiration Date Visits Re quested Visits Authorized [id number] Closed 01/25/2019 07/24/2019 1 1 Encounter Details Date Type Department Care Team (Latest Contact Info) Description 01/25/2019 10:15 AM CDT Office Visit [facility] - Orthopedics [address] [facility] [place] [address] Corrina Peralta PA-C [address] [place] [address] Primary osteoarthritis of left knee (Primary [...] this encounter Patient Instructions * Patient Instructions* Corrina Peralta PA-C - 01/25/2019 11:33 AM CDT [facility] Department of Orthopaedic Surgery Orthopaedic Clinic Discharge [...] if something about your condition significantly changes. [facility] Orthopaedic office contact information: [facility] ; select option 1 to make, change or cancel an appointment OR leave voicemail with Anisha Goldberg RN at [phone] with any questions/concerns. [address] [place] [id number] [place] [address] [place] [address], [address] [address] Contact [facility] [employer] [facility] to explore weight loss options. Website: [email or web address] [facility] Weight management Services offers both surgical and non-surgical weight-loss options to treat obesity. Whether you need to make long-term lifestyle changes or small habit adjustments, our team of specially- trainedphysicians and clinicians will support you on your journey to wellness. OR Contact [facility] in [place] Weight Loss Surgery Website: [email or web address] documented in this encounter Progress Notes * Corrina Peralta PA-C - 01/25/2019 10:52 AM CDT [facility] ORTHO-PERI [address] [facility] [address] Dept: [phone] Dept Today we had the pleasure of seeing Lakeisha Alejandra in our [facility] Orthopaedic Surgery Clinic for Chief [...] ??? BIOPSY ??? HX SPINAL FUSION ??? NC FEMUR/KNEE SURG UNLISTED both knees ??? LUTHER [...] benefits of weight loss. Information provided for [facility] Weight Loss Management services - she was [...] CDTAssociated Order(s): PROCDOC LARGE JOINT INJECTION Procedure(s): NC DRAIN/INJECT LARGE JOINT/BURSA Pre-Procedure Diagnose(s): Primary osteoarthritis [...] procedure well. Remainder of plan per note. Crorina Peralta PA-C 01/25/2019 12:36 PM documented in this encounter Plan of Treatment Not on file documented as of this encounter Procedures Procedure Name Priority Date/Time Associated Diagnosis Comments NC DRAIN/INJECT LARGE JOINT/BURSA Routine 01/25/2019 4:31 PM CDT Primary osteoarthritis of left knee documented in this encounter Results * NC DRAIN/INJECT LARGE JOINT/BURSA (01/25/2019 4:31 PM CDT) [...] Knee documented in this encounter Care Teams Machine Binder Stripper Relationship Specialty Start Date End Date Blake Lindsey MD [address] [place] [address] PCP - General 05/20/16 documented as of this encounter
--- OUTSIDE RECORDS SUMMARY | 2024-07-29 17:51 | XMS_ITS | Encounter Summary ---
Author Organization [facility] Health Address [address] [place] [address] Care Team Providers Care Coding Quality Coordinator Name Role Phone Blake Lindsey MD Primary Care Provider [phone] Encounter Details Date Type Department Care Team (Latest Contact Info) Description 04/19/[address] [facility] EMERGENCY DEPARTMENT [address] [place] [id number] Discharge Disposition: Home or Self Care [...] ELOINA Gallagher Service: Emergency Author Type: Physician Personnel Technician Date of Service: 04/19/2017 11:59 AM Filed: 04/19/2017 12:04 PM Note Type: ED Provider Notes Status: Signed Director Community Health Nursing: ELOINA Gallagher (Physician Personnel Technician) Cosigner: Kain Wellington MD at 04/19/2017 5:41 PM History Chief Complaint Patient presents with ??? Nausea pt here for N/V. Pt was just discharged from hospital last night for the same. C/O 3 episodes of N/V. Denies blood, The history is provided by the patient (pt reports N/V was admitted to [facility] discharged yesterday ptstates vomiting today no fever [...] ??? Echocardiogram findings abnormal, without diagnosis at [facility] ??? GERD (gastroesophageal reflux disease) 07/13/2013 ??? Mental disorder Claustrophobia ??? Osteoporosis ??? Patellofemoral arthritis of right knee 09/09/2016 ??? Radiation chemo only, last time ??? Sleep apnea central sleep apnea, cpap Past Surgical History: Procedure Laterality Date ??? BIOPSY ??? HX BACK SURGERY ??? HX SPINAL FUSION ??? SC FEMUR/KNEE [...] see information sheet Contact information: [address] [employer] [facility] [address] Disposition Condition stable Yesenia ELOINA Ascencio [...] URINE NO CONFIRM (04/19/2017 11:33 AM CDT) [facility] Amphetamines Screen Urine Negative Negative : [...] not screen for Propoxyphene, Meprobamate, Carisoprodol, Trazodone, onoi-bjw-ncjuaad medications and/or volatiles (Acetone, Isopropanol, Methanol or Ethylene Glycol). Ethanol, Salicylate, Acetaminophen, Tricyclic Antidepressants and several therapeutic drugs may be individually assayed in serum or plasma specimen. Toxicology testing by the [facility] is an aid to medical diagnosis and treatment of patients. No documented chain of custody was maintained. Results are intended to be used for clinical purposes only. ? Kain Wellington MD LAB - URINE CHEMISTR Y ORDERABLES Performing Organization Address [facility] Co de Phone Number [address] [phone] * (ABNORMAL) URINALYSIS REFLEX TO MICROSCOPIC NO CULTURE (04/19/2017 11:31 AM CDT) Color UA Yellow Straw, Yellow, Colorless, Light Yellow [facility] Clarity UA Clear Clear [facility] Specific [place] UA 1.010 1.001 - 1.030 [facility] [...] Casts UA 2 0 - 2 /LPF [facility] Urine specimen (specimen) 04/19/2017 11:31 AM CDT 04/19/2017 11:33 AM CDT Kain Wellington MD LAB - URINALYSIS ORD ERABLES [address] [phone] * LIPASE BLOOD (04/19/2017 11:03 AM CDT) Lipase 10 8 - 78 Units/L [facility] Blood specimen (specimen) BLOOD SPECIMEN / Unknown 04/19/2017 11:03 AM CDT 04/19/2017 11:10 AM CDT Kain Wellington MD LAB - CHEMISTRY [facility]RISTOP[facility] DE LA GARZA [address] [phone] * (ABNORMAL) COMPREHENSIVE METABOLIC PANEL (04/19/2017 11:03 AM CDT) BUN 5(L) 7 - 26 mg/dL [facility] Creatinine 0.6 0.6 - 1.2 mg/dL [facility] Sodium 140 136 - 145 mmol/L [facility] Potassium 3.7 3.5 - 4.5 mmol/L [facility] Chloride 105 98 - 107 mmol/L [facility] CO2 24 22 - 29 mmol/L [facility] Glucose 111 70 - 115 mg/dL [facility] Calcium 9.7 8.4 - 10.2 mg/dL [facility] Protein Total 7.9 6.0 - 8.3 g/dL [facility] Albumin 3.8 3.4 - 5.0 g/dL [facility] Bilirubin Total 0.7 0.2 - 1.2 mg/dL [facility] Alkaline Phosphatase 108 40 - 150 Units/L [facility] ALT 142(H) 0 - 55 Units/L [facility] AST 98(H) 5 - 34 Units/L [facility] Anion Gap 15 8 - 18 [facility] BUN/Creatinine Ratio 8 7 - 23 [facility] Osmolality Calculated 288 270 - 300 mOsm/kg [facility] Albumin/Globulin Ratio 0.9(L) 1.1 - 2.3 [facility] eGFR >60 >60 mL/min/1.7 3 m2 [facility] Blood specimen (specimen) BLOOD SPECIMEN / Unknown 04/19/2017 11:03 AM CDT 04/19/2017 11:10 AM CDT Kain Wellington MD LAB - CHEMISTRY [facility] DE LA [facility]AR[facility] [address] [phone] * (ABNORMAL) CBC W AUTO DIFFERENTIAL (04/19/2017 11:03 AM CDT) WBC 8.7 3.5 - 10.5 10? 3 /uL [facility] RBC 4.97 3.90 - 5.00 10? 6 /uL [facility] Hemoglobin 16.4(H) 12.0 - 15.5 g/dL [facility] Comment:Checked by repeat an alysis. Hematocrit 45.7(H) 35.0 - 45.0 % [facility] MCV 92.0 81.0 - 97.0 fL [facility] MCH 33.0 28.0 - 34.0 pg [facility] MCHC 35.9 32.0 - 36.0 g/dL [facility] Platelet Count 186 150 - 400 10? 3 /uL [facility] RDW-SD 44.3 36.0 - 50.0 fL [facility] RDW-CV 13.2 11.2 - 14.8 % [facility] MPV 9.0(L) 9.3 - 12.8 fL [facility] nRBC Absolute 0.00 0 10? 3 /uL [facility] nRBC Auto 0.0 0 /100 WBC [facility] Neutrophils % 77.3(H) 35.0 - 70.0 % [facility] Lymphocytes % 17.5(L) 19.7 - 55.1 % [facility] Monocytes % 4.6 3.0 - 15.0 % [facility] Eosinophils % 0.5 0.0 - 6.0 % [facility] Basophil % 0.1 0.0 - 1.5 % [facility] Neutrophils Absolute 6.7 1.6 - 7.0 10? 3 /uL [facility] Lymphocyte Absolute 1.5 0.8 - 2.9 10? 3 /uL [facility] Monocytes Absolute 0.40 0.14 - 0.66 10? 3 /uL [facility] Eosinophils Absolute 0.04 0.00 - 0.22 10? 3 /uL [facility] Basophils Absolute 0.01 0.00 - 0.06 10? 3 /uL [facility] Immature Granulocytes % 0.5 0.0 - 1.0 % [facility] Blood specimen (specimen) BLOOD SPECIMEN / Unknown 04/19/2017 11:03 AM CDT 04/19/2017 11:10 AM CDT Kain Wellington MD LAB - HEMATOLOGY MELISSA YADAV Performing Organization Address [facility] de Phone Number [facility] [address] [phone] * CBC W AUTO DIFFERENTIAL (04/19/2017 11:03 AM CDT) Blood specimen (specimen) BLOOD SPECIMEN / Unknown 04/19/2017 11:03 AM CDT Narrative [facility] - 04/19/2017 11:29 AM CDT The following orders were created for panel order CBC w Differential. Procedure ? Abnormality ? Status ? --------- ? ------ ? CBC WITH DIFFERENTIAL[[id number]] ? Abnormal ?Final result ? Please view results for these tests on the individual orders. Kain Wellington MD LAB - HEMATOLOGY MELISSA YADAV Performing Organization Address [facility] Co de Phone Number [facility] [address] documented in this encounter Visit Diagnoses Diagnosis Nausea Nausea alone documented in this encounter Care Teams Coding Quality Coordinator Relationship Specialty Start Date End Date Blake Lindsey MD [address] [place] [address] PCP - General 05/20/16 documented as of this encounter
--- OUTSIDE RECORDS SUMMARY | 2024-07-29 17:51 | XMS_ITS | Encounter Summary ---
Author Organization [facility] Health Address [address] [facility] [place] [address] Care Team Providers Care Enrollment Specialist Name Role Phone Blake Lindsey MD Primary Care Provider [phone] Reason for Referral * Radiology Services (Routine) - Closed Specialty Diagnoses / Procedures Referred By Contac t Referred To Contact Positron Emission Tomography Diagnoses Hodgkin lymphoma of extranodal or solid organ site (HCC) Hodgkin lymphoma, unspecified Hodgkin lymphoma type, unspecified body region (HCC) Procedures PET CT WHOLE BODY Castillo Max MD [address] [place] [address] [address] [place] [address] [facility] [address] [place] [phone] Referral ID Status Reason Start Date Expiration Date Visits Re quested Visits Authorized [id number] Closed 01/19/2019 07/18/2019 1 1 Reason for Visit * Radiology Services (Routine) - Closed Specialty Diagnoses / Procedures Referred By Contac t Referred To Contact Positron Emission Tomography Diagnoses Hodgkin lymphoma of extranodal or solid organ site (HCC) Hodgkin lymphoma, unspecified Hodgkin lymphoma type, unspecified body region (HCC) Procedures PET CT WHOLE BODY Castillo Max MD [address] [place] [address] [facility] [address] [place] [address] Referral ID Status Reason Start Date Expiration Date Visits Re quested Visits Authorized [id number] Closed 01/19/2019 07/18/2019 1 1 Encounter Details Date Type Department Care Team (Latest Contact Info) Description 02/13/2019 10:31 AM CDT - 02/13/2019 10:41 AM CDT Hospital Encounter [facility] PET [address] [place] [address] Castillo Max MD [address] [place] [address] Discharge Disposition: Home or Self Care Social [...] region (HCC) GLUCOSE SCREEN - POCT (IP) [facility] STAT 02/13/2019 10:32 AM CDT documented in [...] * (ABNORMAL) GLUCOSE SCREEN - POCT (IP) [facility] (02/13/2019 10:32 AM CDT) Glucose WB/POC 117(A) 70 - 115 mg/dL [facility] POCT TESTING Blood BLOOD SPECIMEN / Unknown 02/13/2019 10:32 AM CDT Castillo Max MD LAB - POINT OF CAR E ORDERABLES [facility] POCT TESTING [address] [phone] documented in this encounter Visit Diagnoses Diagnosis [...] millicuries documented in this encounter Care Teams Enrollment Specialist Relationship Specialty Start Date End Date Balke Lindsey MD [address] [place] [address] PCP - General 05/20/16 documented as of this encounter
--- OUTSIDE RECORDS SUMMARY | 2024-07-29 17:51 | XMS_ITS | Encounter Summary ---
Author Organization [facility] Health Address [address] [facility] [place] [address] Care Team Providers Care Rn Infusion Name Role Phone Blake Lindsey MD Primary Care Provider [phone] Encounter Details Date Type Department Care Team (Latest Contact Info) Description 07/16/2016 Hospital Outpatient Visit Historic [facility] PET [address] [place] [address] Discharge Disposition: Home or Self Care Social [...] WHOLE BODY Routine 07/16/2016 12: 09 PM NAUTICAL INSTRUMENT MECHANIC GLUCOSE - POINT OF CARE (AMB) [facility] Routine 07/16/2016 10:05 AM NAUTICAL INSTRUMENT MECHANIC GLUCOSE - POINT OF CARE (AMB) [facility] Routine 07/16/2016 10:05 AM NAUTICAL INSTRUMENT MECHANIC documented in this encounter Results * PET CT WHOLE BODY (07/16/2016 12:09 PM NAUTICAL INSTRUMENT MECHANIC) Anatomical Region Laterality Modality Other Impressions 07/16/2016 1:37 PM NAUTICAL INSTRUMENT MECHANIC IMPRESSION: 1. No definite PET/CT evidence of [...] 1:37 PM . Narrative 07/16/2016 1:37 PM NAUTICAL INSTRUMENT MECHANIC Procedure: PET/CT Study. Referring Physician: Castillo Max [...] OF CARE (AMB) [facility] (07/16/2016 10:05 AM NAUTICAL INSTRUMENT MECHANIC) Marshal Patel DO LAB - POINT OF CARE ORDERABLES [facility] RADIOLOGY * GLUCOSE - POINT OF CARE (AMB) [facility] (07/16/2016 10:05 AM NAUTICAL INSTRUMENT MECHANIC) Glucose POCT 94 mg/dL [facility] Capillary blood specimen (specimen) 07/16/2016 10:05 AM NAUTICAL INSTRUMENT MECHANIC Marshal Patel DO LAB - POINT OF CARE ORDERABLES [facility] documented in this encounter Visit Diagnoses Diagnosis Hodgkin lymphoma (HCC) Hodgkin's disease, unspecified documented in this encounter Care Teams Rn Infusion Relationship Specialty Start Date End Date Blake Lindsey MD [address] [place] [phone] PCP - General 05/20/16 documented as of this encounter
--- OUTSIDE RECORDS SUMMARY | 2024-07-29 17:51 | XMS_ITS | Encounter Summary ---
Author Organization [facility] Health Address [address] [facility] [place] [address] Care Team Providers Care Sericulture Teacher Name Role Phone Blake Lindsey MD Primary Care Provider [phone] Encounter Details Date Type Department Care Team (Late st Contact Info) Description 05/31/2020 Orders Only [facility] [address] Reba Du RN Hodgkin lymphoma, unspecified Hodgkin [...] (ABNORMAL) COMPREHENSIVE METABOLIC PANEL (06/06/2020 1:48 PM BUSINESS CONTROL MANAGER) BUN 11 7 - 26 mg/dL 06/06/2020 2:[address] [facility]ORAT[facility] Creatinine 0.7 0.6 - 1.2 mg/dL 06/06/2020 2:30 PM [facility] Sodium 141 136 - 145 mmol/L 06/06/2020 2:30 PM [facility] Potassium 4.1 3.5 - 4.5 mmol/L 06/06/2020 2:30 PM [facility] Chloride 108(H) 98 - 107 mmol/L 06/06/2020 2:30 PM [facility] CO2 22 22 - 29 mmol/L 06/06/2020 2:30 PM [facility] Glucose 128(H) 70 - 115 mg/dL 06/06/2020 2:30 PM [facility] Calcium 9.8 8.4 - 10.2 mg/dL 06/06/2020 2:30 PM [facility] Protein Total 7.4 6.0 - 8.3 g/dL 06/06/2020 2:30 PM [facility] Albumin 4.0 3.4 - 5.0 g/dL 06/06/2020 2:[address] [facility] Bilirubin Total 0.4 0.2 - 1.2 mg/dL 06/06/2020 2:30 PM [facility] Alkaline Phosphatase 95 40 - 150 Units/L 06/06/2020 2:30 PM [facility] ALT 14 0 - 55 Units/L 06/06/2020 2:30 PM [facility] AST 14 5 - 34 Units/L 06/06/2020 2:30 PM [facility] Anion Gap 15 8 - 18 06/06/2020 2:30 PM [facility] BUN/Creatinine Ratio 16 7 - 23 06/06/2020 2:30 PM [facility] Osmolality Calculated 293 270 - 300 mOsm/kg 06/06/2020 2:30 PM [facility] Albumin/Globulin Ratio 1.2 1.1 - 2.3 06/06/2020 2:30 PM [facility] eGFR >60 >60 mL/min/1.7 3 m2 06/06/2020 2:30 PM [facility] Blood BLOOD SPECIMEN / Unknown Lab Venipuncture / Unknown 06/06/2020 1:48 PM BUSINESS CONTROL MANAGER 06/06/2020 2:01 PM BUSINESS CONTROL MANAGER Castillo Max MD LAB - CHEMISTRY OR DERABLES [facility] [address] [place] [phone], [facility] [phone] * (ABNORMAL) CBC WITH DIFFERENTIAL (06/06/2020 1:48 PM BUSINESS CONTROL MANAGER) WBC 7.4 3.5 - 10.5 10? 3 /uL 06/06/2020 2:08 PM [facility] RBC 4.54 3.90 - 5.00 10? 6 /uL 06/06/2020 2:08 PM [facility] Hemoglobin 14.6 12.0 - 15.5 g/dL 06/06/2020 2:08 PM [facility] Hematocrit 44.0 35.0 - 45.0 % 06/06/2020 2:08 PM [facility] MCV 96.9 81.0 - 97.0 fL 06/06/2020 2:08 PM [facility] MCH 32.2 28.0 - 34.0 pg 06/06/2020 2:08 PM [facility] MCHC 33.2 32.0 - 36.0 g/dL 06/06/2020 2:08 PM [facility] Platelet Count 165 150 - 400 10? 3 /uL 06/06/2020 2:08 PM [facility] RDW-SD 45.5 36.0 - 50.0 fL 06/06/2020 2:08 PM [facility] RDW-CV 12.8 11.2 - 14.8 % 06/06/2020 2:08 PM [facility] MPV 8.9(L) 9.3 - 12.8 fL 06/06/2020 2:08 PM [facility] nRBC Absolute 0.00 0 10? 3 /uL 06/06/2020 2:08 PM [facility] nRBC Auto 0.0 0 /100 WBC 06/06/2020 2:08 PM [facility] Neutrophils % 72.0(H) 35.0 - 70.0 % 06/06/2020 2:08 PM [facility] Lymphocytes % 21.0 19.7 - 55.1 % 06/06/2020 2:08 PM [facility] Monocytes % 3.8 3.0 - 15.0 % 06/06/2020 2:08 PM [facility] Eosinophils % 2.8 0.0 - 6.0 % 06/06/2020 2:08 PM [facility] Basophil % 0.3 0.0 - 1.5 % 06/06/2020 2:08 PM [facility] Neutrophils Absolute 5.4 1.6 - 7.0 10? 3 /uL 06/06/2020 2:08 PM [facility] Lymphocyte Absolute 1.6 0.8 - 2.9 10? 3 /uL 06/06/2020 2:08 PM [facility] Monocytes Absolute 0.28 0.14 - 0.66 10? 3 /uL 06/06/2020 2:08 PM [facility] Eosinophils Absolute 0.21 0.00 - 0.45 10? 3 /uL 06/06/2020 2:08 PM [facility] Basophils Absolute 0.02 0.00 - 0.06 10? 3 /uL 06/06/2020 2:08 PM [facility] Immature Granulocytes % 0.1 0.0 - 1.0 % 06/06/2020 2:08 PM [facility] Blood BLOOD SPECIMEN / Unknown Lab Venipuncture / Unknown 06/06/2020 1:48 PM BUSINESS CONTROL MANAGER 06/06/2020 2:01 PM BUSINESS CONTROL MANAGER Castillo Max MD LAB - HEMATOLOGY O RDERABLES [facility] [address] [place] [address], [facility] [phone] documented in this encounter Visit Diagnoses Diagnosis Hodgkin lymphoma, unspecified Hodgkin lymphoma type, unspecified body region (HCC)- Primary documented in this encounter Care Teams Sericulture Teacher Relationship Specialty Start Date End Date Blake Lindsey MD [address] [place] [address] PCP - General 05/20/16 documented as of this encounter
--- OUTSIDE RECORDS SUMMARY | 2024-07-29 17:51 | XMS_ITS | Encounter Summary ---
Author Organization [facility] Health Address [address] [place] [address] Care Team Providers Care Program Instructor Name Role Phone Blake Lindsey MD Primary Care Provider [phone] Encounter Details Date Type Department Care Team (Latest Contact Info) Description 02/18/2017 Emergency Department Historic [facility] EMERGENCY DEPARTMENT [address] [place] [address] Saul Decker MD [address] [place] [address] Discharge Disposition: Home or Self [...] Note Type: ED Provider Notes Status: Signed Utility Spray Operator: Siri Abbasi MD (Resident) Cosigner: Saul Enriquez [...] Specialty: Family Medicine Contact information: [address] [place] [id number] Dispo: Discharge Siri Abbasi MD Resident 02/19/17 0052 * Saul Decker MD - 02/18/2017 8:52 PM CDT ED Provider Notes Signed by Salu Enriquez MD on 02/18/2017 11:48 PM Author: Saul Enriquez MD Service: Emergency Author Type: Physician Date of Service: 02/18/2017 8:52 PM Filed: 02/18/2017 11:48 PM Note Type: ED Provider Notes Status: Signed Utility Spray Operator: Saul Enriquez MD (Physician) ED ATTENDING NOTE [...] ??? Echocardiogram findings abnormal, without diagnosis at [facility] ??? GERD (gastroesophageal reflux disease) 07/13/2013 ??? Mental disorder Claustrophobia ??? Osteoporosis ??? Patellofemoral arthritis of right knee 09/09/2016 ??? Radiation chemo only, last time ??? Sleep apnea central sleep apnea, cpap Past Surgical History: Procedure Laterality Date ??? BIOPSY ??? HX BACK SURGERY ??? HX SPINAL FUSION ??? [place] FEMUR/KNEE SURG UNLISTED both knees ??? LUTHER [...] Procedure Abnormality Status --------- ------ CBC WITH DIFFERENTIAL[[id number]] Abnormal Final result Please view results for [...] Signed: Dr. Decker. Saul Enriquez MD 02/18/17 [id number] documented in this encounter Plan of Treatment [...] * TROPONIN I (02/18/2017 9:22 PM CDT) [facility] Troponin I <0.010 <0.032 ng/mL [facility] Blood specimen (specimen) BLOOD SPECIMEN / Unknown 02/18/2017 9:22 PM CDT 02/18/2017 9:34 PM CDT Saul Decker MD LAB - CHEMISTRY CHRISTOPHER DE LA GARZA [facility] Organization Address City/State/ZIP Co de Phone Number [address] [phone] * (ABNORMAL) D-DIMER (02/18/2017 9:22 PM CDT) Pathologist [facility] D-Dimer Quantitative 0.67(H) <=0.50 mcg/mL FEU [facility] Comment: In the absence of clinical [...] - COAGULATION OR DERABLES Performing Organization Address [facility]/ZIP Co de Phone Number [address] [phone] * GLUCOSE - POINT OF CARE (AMB) U (02/18/2017 8:34 PM CDT) Dylan Pollack MD LAB - POINT OF CARE ORDERABLES Performing Organization Address [facility]/State/ZIP Co de Phone Number [facility] RADIOLOGY * GLUCOSE - POINT OF CARE (AMB) U (02/18/2017 8:34 PM CDT) Glucose, Fingerstick see lab results [facility] Capillary blood specimen (specimen) 02/18/2017 8:34 PM CDT Dylan Pollack MD LAB - POINT OF CARE ORDERABLES [facility] * (ABNORMAL) URINALYSIS W/MICROSCOPIC NO CULTURE (02/18/2017 7:04 PM CDT) Color UA Yellow Straw, Yellow, Colorless, Light Yellow [facility] Clarity UA Clear Clear [facility] Specific [place] UA 1.012 1.001 - 1.030 [facility] pH UA 8.5(H) 5.0 - 8.0 [facility] Protein UA Trace(A) <=20 mg/dL [facility] Glucose UA Negative Negative mg/dL [facility] Ketone UA Negative Negative mg/dL [facility] Bilirubin UA Negative Negative mg/dL [facility] Blood UA Trace(A) Negative [facility] Nitrite UA Negative Negative [facility] Leukocyte Esterase Negative Negative [facility] Urobilinogen UA <2.0 <2.0 mg/dL [facility] RBC UA 6 0 - 8 /HPF [facility] WBC UA 1 0 - 2 /HPF [facility] Bacteria UA Rare Rare, Occasional, None /HPF [facility] Squamous Epithelial Cells UA <1 0 - 1 /HPF [facility] Mucus UA Occasional( A) None /LPF [facility] Urine specimen (specimen) 02/18/2017 7:04 PM CDT 02/18/2017 7:04 PM CDT Gabi Arnett MD LAB - URINALYSIS ORD ERABLES [facility] [address] [place] [address] * TROPONIN I (02/18/2017 4:58 PM CDT) Troponin I <0.010 <0.032 ng/mL [facility] Blood specimen (specimen) BLOOD SPECIMEN / Unknown 02/18/2017 4:58 PM CDT 02/18/2017 7:04 PM CDT Narrative [facility] - 02/18/2017 7:26 PM CDT Add on Dylan Pollack MD LAB - CHEMISTRY CHRISTOPHER DE LA GARZA [place] [id number] [address] [phone] * XR CHEST 1VW (02/18/2017 4:46 PM [...] CDT) BUN 6(L) 7 - 26 mg/dL [facility] Creatinine 0.6 0.6 - 1.2 mg/dL [facility] Sodium 139 136 - 145 mmol/L [facility] Potassium 4.0 3.5 - 4.5 mmol/L [facility] Chloride 103 98 - 107 mmol/L [facility] CO2 24 22 - 29 mmol/L [facility] Glucose 147(H) 70 - 115 mg/dL [facility] Calcium 10.3(H) 8.4 - 10.2 mg/dL [facility] Protein Total 8.1 6.0 - 8.3 g/dL [facility] Albumin 3.9 3.4 - 5.0 g/dL [facility] Bilirubin Total 0.7 0.2 - 1.2 mg/dL [facility] Alkaline Phosphatase 119 40 - 150 Units/L [facility] ALT 170(H) 0 - 55 Units/L [facility] AST 155(H) 5 - 34 Units/L [facility] Anion Gap 16 8 - 18 [facility] BUN/Creatinine Ratio 10 7 - 23 [facility] Osmolality Calculated 288 270 - 300 mOsm/kg [facility] Albumin/Globulin Ratio 0.9(L) 1.1 - 2.3 [facility] eGFR >60 >60 mL/min/1.7 3 m2 [facility] Blood specimen (specimen) BLOOD SPECIMEN / Unknown 02/18/2017 4:28 PM CDT 02/18/2017 4:28 PM CDT Dylan Pollack MD LAB - CHEMISTRY CHRISTOPHER DE LA GARZA [facility] Organization Address City/State/ZIP Co de Phone Number [facility] [address] [place] [address] * CBC W AUTO DIFFERENTIAL (02/18/2017 4:28 PM CDT) Blood specimen (specimen) BLOOD SPECIMEN / Unknown 02/18/2017 4:28 PM CDT Narrative [facility] - 02/18/2017 4:32 PM CDT The following orders were created for panel order CBC w Differential. Procedure ? Abnormality ? Status ? --------- ? ------ ? CBC WITH DIFFERENTIAL[[id number]] ? Abnormal ?Final result ? Please view results for these tests on the individual orders. Dylan Pollack MD [facility] Performing Organization Address City/State/[facility] Co de Phone Number [facility] [address] * (ABNORMAL) CBC W AUTO DIFFERENTIAL (02/18/2017 4:28 PM CDT) WBC 10.9(H) 3.5 - 10.5 10? 3 /uL [facility] RBC 5.02(H) 3.90 - 5.00 10? 6 /uL [facility] Hemoglobin 16.5(H) 12.0 - 15.5 g/dL [facility] Hematocrit 46.7(H) 35.0 - 45.0 % [facility] MCV 93.0 81.0 - 97.0 fL [facility] MCH 32.9 28.0 - 34.0 pg [facility] MCHC 35.3 32.0 - 36.0 g/dL [facility] Platelet Count 194 150 - 400 10? 3 /uL [facility] RDW-SD 45.3 36.0 - 50.0 fL [facility] RDW-CV 13.3 11.2 - 14.8 % [facility] MPV 8.6(L) 9.3 - 12.8 fL [facility] nRBC Absolute 0.00 0 10? 3 /uL [facility] nRBC Auto 0.0 0 /100 WBC [facility] Neutrophils % 77.4(H) 35.0 - 70.0 % [facility] Lymphocytes % 17.6(L) 19.7 - 55.1 % [facility] Monocytes % 3.7 3.0 - 15.0 % [facility] Eosinophils % 1.0 0.0 - 6.0 % [facility] Basophil % 0.3 0.0 - 1.5 % [facility] Neutrophils Absolute 8.5(H) 1.6 - 7.0 10? 3 /uL [facility] Lymphocyte Absolute 1.9 0.8 - 2.9 10? 3 /uL [facility] Monocytes Absolute 0.40 0.14 - 0.66 10? 3 /uL [facility] Eosinophils Absolute 0.11 0.00 - 0.22 10? 3 /uL [facility] Basophils Absolute 0.03 0.00 - 0.06 10? 3 /uL [facility] Immature Granulocytes % 0.7 0.0 - 1.0 % [facility] Blood specimen (specimen) BLOOD SPECIMEN / Unknown 02/18/2017 4:28 PM CDT 02/18/2017 4:28 PM CDT Dylan Pollack MD LAB - HEMATOLOGY MELISSA YADAV [facility] [address] [phone] * (ABNORMAL) GLUCOSE ACCUCHECK (02/18/2017 4:06 PM CDT) Glucose, Fingerstick 131(H) 70-115mg/d L mg/dL [facility] RAL (BEAKER) Comment:Geophysical Laboratory Director: ZAKI GOMEZ 02/18/2017 4:06 PM CDT Castillo Hernandez MD LAB - CHEMISTRY CHRISTOPHER DE LA GARZA [facility] RALS (BEAKER) * EKG 12-LEAD (02/18/2017 12:00 AM CDT) EKG [facility] RADIOLOGY Comment: Exam Date/Time: ?? Feb 18 [...] bpm Confirmed by DAVID WILLAMS, P ([id number]), medical transcription editor Ki Miller ([id number]) on 02/22/2017 12:23:38 PM Referred By: REFERRING NO ? Confirmed By:Terri HERNANDEZ MD 02/18/2017 Dylan Pollack MD ECG ORDERABLES [facility] RADIOLOGY documented in this encounter Visit Diagnoses Diagnosis Shortness of breath documented in this encounter Care Teams Program Instructor Relationship Specialty Start Date End Date Blake Lindsey MD [address] [place] [address] PCP - General 05/20/16 documented as of this encounter
--- OUTSIDE RECORDS SUMMARY | 2024-07-29 17:51 | XMS_ITS | Encounter Summary ---
Author Organization [facility] Health Address [address] [place] [address] Care Team Providers Care Regional Construction Manager Name Role Phone Blake Lindsey MD Primary Care Provider Reason for Referral * Consultation (Routine) - Closed Specialty Diagnoses / Procedures Referred By Contac t Referred To Contact Pain Management Diagnoses Low back pain, unspecified back pain laterality, unspecified chronicity, with sciatica presence unspecified Zuleika Mckeon MD [address] [facility] [place] [address] Andrea Ornelas MD [address] [place] [address] Referral ID Status Reason Start Date Expiration Date V isits Requested Visits Authorized [id number] Closed Specialty Services Required 08/08/2018 02/04/2019 1 1 LLMENT ADVISOR Reason for Visit * Reason Comments Pain Back * Evaluate & Treat (Routine) - Closed Specialty Diagnoses / Procedures Referred By Contact Referred To Contact Orthopedic Surgery / Orthopedics Blake Lindsey MD [address] [place] [address] Zuleika Mckeon MD [address] [place] [address] [place] [address] Referral ID Status Reason Start Date Expiration Date Visits Re quested Visits Authorized [id number] Closed 08/08/2018 02/04/2019 1 1 Encounter Details Date Type Department Care Team (Late st Contact Info) Description 08/08/2018 10:15 AM ENROLLMENT ADVISOR Office Visit [facility] - Orthopedics [address] [place] [address], [place] [phone] Zuleika Mckeon MD [address] [place] [address] [place] [address] Low back pain, unspecified back [...] (208 lb 6.4 oz) 08/08/2018 10:39 AM ENROLLMENT ADVISOR Height 160 cm (5' 3 ) 08/08/2018 10:39 AM ENROLLMENT ADVISOR Body Mass Index 36.92 08/08/2018 10:39 AM ENROLLMENT ADVISOR documented in this encounter Patient Instructions * Patient Instructions* Luz Bettencourt RN - 08/08/2018 11:30 AM ENROLLMENT ADVISOR [facility] Department of Orthopaedic Surgery Orthopaedic Spine Clinic Discharge Form Lakeisha Alejandra 08/08/2018 Thank you for coming in to see us today for your diagnosis of: Back Pain Recommended Treatment: Will initiate referral to pain management Please follow-up only as needed. Ms. Alejandra had a clinic appointment on 08/08/2018. Please call Gloria Bettencourt RN, at [phone] with any questions or concerns. LLMENT ADVISOR documented in this encounter Progress Notes * Sivakumar Junior MD - 08/08/2018 10:58 AM CST [facility] Orthopedic Spine Surgery Clinic Note Lakeisha Alejandra, 47 y.o., female : 1970 CSN: [id number] Primary Care Physician: Blake Lindsey MD Diagnosis/Procedures [...] ??? BIOPSY ??? HX SPINAL FUSION ??? [place] FEMUR/KNEE SURG UNLISTED both knees ??? LUTHER [...] ??? Furosemide (LASIX PO) ??? nystatin (MYCOSTATIN) 857352 UNIT/GM powder ??? pregabalin (LYRICA) 75 MG [...] Abd: soft, nontender, nondistended Musculoskeletal: Neck: - C-collar/Dixon J: absent - Wounds: surgical incision well [...] PRN Sivakumar Junior MD 08/08/2018 10:59 AM LLMENT ADVISOR Associated attestation - Zuleika Mckeon MD - 08/08/2018 12:21 PM ENROLLMENT ADVISOR I have seen and examined the patient with the resident and I agree with the findings and plan of care as documented by resident. 08/08/18 Zuleika Mckeon MD [employer]er of Orthopaedics Adult and Pediatric Spine Surgery documented in this encounter Plan of Treatment Not on file documented as of this encounter Results * AMB REFERRAL TO PAIN CLINIC (09/16/2018 9:45 AM ENROLLMENT ADVISOR) Zuleika Mckeon MD OUTPATIENT REFERRALS documented in this encounter Visit Diagnoses Diagnosis Low back pain, unspecified back pain laterality, unspecified chronicity, with sciatica presence unspecified- Primary documented in this encounter Care Teams Regional Construction Manager Relationship Specialty Start Date End Date Blake Lindsey MD [address] [place] [address] PCP - General 05/20/16 documented as of this encounter
--- OUTSIDE RECORDS SUMMARY | 2024-07-29 17:51 | XMS_ITS | Encounter Summary ---
Author Organization [facility] Health Address [address] [place] [address] Care Team Providers Care Military Communications Specialist Name Role Phone Blake Lindsey MD Primary Care Provider [phone] Encounter Details Date Type Department Care Team (Latest Contact Info) Description 11/17/2018 1:30 PM CDT - 11/17/2018 11:59 PM CDT Hospital Encounter [facility] CANCER CARE DRAWSTATION [address] [facility], 2nd [place] [address] Castillo Max MD [address] [place] [address] Rd [address] [place] [address] Discharge Disposition: Home or Self [...] PO QD 0 10/21/2018 01/12/2019 nystatin (MYCOSTATIN) 885149 UNIT/GM powder 0 09/24/20172018 ondansetron (ZOFRAN) 8 [...] [facility]DH BLOOD (11/17/2018 1:34 PM CDT) Pathologist [facility] LDH Total 193 125 - 243 Units/L 11/17/2018 2:20 PM [facility] Blood BLOOD SPECIMEN / Unknown Lab Venipuncture / Unknown 11/17/2018 1:34 PM CDT 11/17/2018 1:43 PM CDT Castillo Max MD LAB - CHEMISTRY OR DERABLES [address] [phone] * COMPREHENSIVE METABOLIC PANEL (11/17/2018 1:34 PM CDT) Pathologist [facility] BUN 13 7 - 26 mg/dL 11/17/2018 2:20 PM T [facility] Creatinine 0.8 0.6 - 1.2 mg/dL 11/17/2018 2:20 PM T [facility] Sodium 141 136 - 145 mmol/L 11/17/2018 2:20 PM T [facility] Potassium 3.7 3.5 - 4.5 mmol/L 11/17/2018 2:20 PM T [facility] Chloride 104 98 - 107 mmol/L 11/17/2018 2:20 PM [facility] CO2 28 22 - 29 mmol/L 11/17/2018 2:20 PM [facility] Glucose 102 70 - 115 mg/dL 11/17/2018 2:20 PM T [facility] Calcium 10.1 8.4 - 10.2 mg/dL 11/17/2018 2:20 PM [facility] Protein Total 7.2 6.0 - 8.3 g/dL 11/17/2018 2:20 PM [facility] Albumin 3.9 3.4 - 5.0 g/dL 11/17/2018 2:20 PM [facility] Bilirubin Total 0.4 0.2 - 1.2 mg/dL 11/17/2018 2:20 PM [facility] Alkaline Phosphatase 93 40 - 150 Units/L 11/17/2018 2:20 PM [facility] ALT 54 0 - 55 Units/L 11/17/2018 2:20 PM [facility] AST 28 5 - 34 Units/L 11/17/2018 2:20 PM [facility] Anion Gap 13 8 - 18 11/17/2018 2:20 PM [facility] BUN/Creatinine Ratio 16 7 - 23 11/17/2018 2:20 PM [facility] Osmolality Calculated 292 270 - 300 mOsm/kg 11/17/2018 2:20 PM [facility] Albumin/Globulin Ratio 1.2 1.1 - 2.3 11/17/2018 2:20 PM [facility] eGFR >60 >60 mL/min/1.7 3 m2 11/17/2018 2:20 PM [facility] Blood BLOOD SPECIMEN / Unknown Lab Venipuncture / Unknown 11/17/2018 1:34 PM CDT 11/17/2018 1:43 PM T Castillo Max MD LAB - CHEMISTRY OR DERABLES Performing Organization Address City/State/[facility] Co de Phone Number [facility] [address] [place] [address] * (ABNORMAL) CBC WITH DIFFERENTIAL (11/17/2018 1:34 PM CDT) WBC 11.3(H) 3.5 - 10.5 10? 3 /uL 11/17/2018 1:37 PM [facility] RBC 4.62 3.90 - 5.00 10? 6 /uL 11/17/2018 1:37 PM [facility] Hemoglobin 15.3 12.0 - 15.5 g/dL 11/17/2018 1:37 PM [facility] Hematocrit 44.5 35.0 - 45.0 % 11/17/2018 1:37 PM [facility] MCV 96.3 81.0 - 97.0 fL 11/17/2018 1:37 PM [facility] MCH 33.1 28.0 - 34.0 pg 11/17/2018 1:37 PM [facility] MCHC 34.4 32.0 - 36.0 g/dL 11/17/2018 1:37 PM [facility] Platelet Count 208 150 - 400 10? 3 /uL 11/17/2018 1:37 PM [facility] RDW-SD 46.4 36.0 - 50.0 fL 11/17/2018 1:37 PM [facility] RDW-CV 13.2 11.2 - 14.8 % 11/17/2018 1:37 [facility] MPV 8.3(L) 9.3 - 12.8 fL 11/17/2018 1:37 PM [facility] nRBC Absolute 0.00 0 10? 3 /uL 11/17/2018 1:37 PM [facility] nRBC Auto 0.0 0 /100 WBC 11/17/2018 1:37 PM [facility] Neutrophils % 70.7(H) 35.0 - 70.0 % 11/17/2018 1:37 PM [facility] Lymphocytes % 20.7 19.7 - 55.1 % 11/17/2018 1:37 PM [facility] Monocytes % 6.5 3.0 - 15.0 % 11/17/2018 1:37 PM [facility] Eosinophils % 1.2 0.0 - 6.0 % 11/17/2018 1:37 PM [facility] Basophil % 0.4 0.0 - 1.5 % 11/17/2018 1:37 PM [facility] Neutrophils Absolute 8.0(H) 1.6 - 7.0 10? 3 /uL 11/17/2018 1:37 PM [facility] Lymphocyte Absolute 2.4 0.8 - 2.9 10? 3 /uL 11/17/2018 1:37 PM CDT [facility] Monocytes Absolute 0.74(H) 0.14 - 0.66 10? 3 /uL 11/17/2018 1:37 PM CDT [facility] Eosinophils Absolute 0.14 0.00 - 0.45 10? 3 /uL 11/17/2018 1:37 PM CDT [facility] Basophils Absolute 0.05 0.00 - 0.06 10? 3 /uL 11/17/2018 1:37 PM CDT [facility] Immature Granulocytes % 0.5 0.0 - 1.0 % 11/17/2018 1:37 PM CDT [facility] Blood BLOOD SPECIMEN / Unknown Lab Venipuncture / Unknown 11/17/2018 1:34 PM CDT 11/17/2018 1:35 PM CDT Castillo Max MD LAB - HEMATOLOGY O RDERABLES Performing Organization Address City/State/[facility] Co de Phone Number [facility] [address] [phone] documented in this encounter Visit Diagnoses Diagnosis Hodgkin lymphoma, unspecified Hodgkin lymphoma type, unspecified body region (HCC) documented in this encounter Care Teams Military Communications Specialist Relationship Specialty Start Date End Date Blake Lindsey MD [address] [place] [address] PCP - General 05/20/16 documented as of this encounter
--- OUTSIDE RECORDS SUMMARY | 2024-07-29 17:51 | XMS_ITS | Encounter Summary ---
Author Organization [facility] Health Address [address] [place] [address] Care Team Providers Care Urban Sociologist Name Role Phone Blake Lindsey MD Primary Care Provider Encounter Details Date Type Department Care Team (Late st Contact Info) Description 09/02/2016 [facility] Out[facility] - Orthopedics [address] [place] [phone] Urban Guzman MD [address] [place] [address] [place] [address] Discharge Disposition: Home or Self [...] on filedocumented in this encounter Care Teams Urban Sociologist Relationship Specialty Start Date End Date Blake Lindsey MD [address] [place] [address] PCP - General 05/20/16 documented as of this encounter
--- OUTSIDE RECORDS SUMMARY | 2024-07-29 17:51 | XMS_ITS | Encounter Summary ---
Author Organization [facility] Health Address [address] [facility] [place] [address] Care Team Providers Care Animal Breeder Name Role Phone Blake Lindsey MD Primary Care Provider [phone] Reason for Visit * Reason Comments Pain Neck Encounter Details Date Type Department Care Team (Late st Contact Info) Description 10/24/2018 3:00 PM CDT Office Visit [facility] Health Pain Care [address] [place] [address] [place] [address] [place] [id number] Cervicalgia (Primary Dx) Social History Tobacco Use [...] this encounter Patient Instructions * Patient Instructions* iNa Reyez, RT(R) - 10/24/2018 2:37 PM CDT documented in this encounter Progress Notes * Rahda Damian RN - 10/24/2018 2:31 PM CDT Lakeisha returns to Pain Management office today for evaluation of back, shoulder, neck and arm pain. She rates the pain 9/10 today. History of recent treatments include: PT, TENS unit and a shoulder injection in the past. Interventional treatments performed: NONE. Medications currently taking include: NONE from Dr. Ornelas DBS last visit. Pt negative for opiates and positive for xanax and THC. TENs Unit ordered last visit. Insurance denied but patient found one at [facility] and bought patches off [employer]. Spoke with [facility] , and verified last script for Oxycodone 20mg #180 1-2tabs every 6 hours 06/2018, from Dr. Blake Lindsey. Spoke with Jessica Guaman at [facility] . She agrees that the patient is eligible for pain medication at Dr. Ornelas's discretion. She will not continue the benzodiazepines while the patient is prescribed pain medication. Dr. Ornelas approved to trial Buprenorphine patch 5mcg/hr. * Andrea Ornelas MD - 10/24/2018 2:26 PM CDT Laekisha Alejandra is a 47 year old female [...] ? BIOPSY ? HX SPINAL FUSION ? ID FEMUR/KNEE SURG UNLISTED ? both knees ??? [...] MCG-UNIT Take by mouth. ? nystatin (MYCOSTATIN) 703545 UNIT/GM powder ? 0 ??? omeprazole (PRILOSEC) [...] Assessment ? ICD-10-CM ?? 1. Cervicalgia M54.2 ID TENS FOUR LEAD 2. Low back pain, unspecified back pain laterality, unspecified chronicity, with sciatica presence unspecified M54.5 AMB REFERRAL TO PAIN CLINIC ? ID TENS FOUR LEAD 3. Primary osteoarthritis of [...] Primary documented in this encounter Care Teams Animal Breeder Relationship Specialty Start Date End Date Blake Lindsey MD [address] [place] [address] PCP - General 05/20/16 documented as of this encounter
--- OUTSIDE RECORDS SUMMARY | 2024-07-29 17:51 | XMS_ITS | Encounter Summary ---
Author Organization [facility] Health Address [address] [facility] [place] [address] Care Team Providers Care Aquarium Specialist Name Role Phone Blake Lindsey MD Primary Care Provider Reason for Visit * Reason Onset Date Comments Shoulder Pain left Shoulder Pain 11/16/2018 * Evaluate & Treat (Routine) - Closed Specialty Diagnoses / Procedures Referred By Contact Referred To Contact Orthopedic Surgery / Orthopedics Blake Lindsey MD [address] [place] [address] Wai Lowry MD [address] [place] [address] [place] [address] Referral ID Status Reason Start Date Expiration Date Visits Re quested Visits Authorized [id number] Closed 11/16/2018 05/15/2019 1 1 Encounter Details Date Type Department Care Team (Late st Contact Info) Description 11/16/2018 12:50 PM CDT Office Visit [facility] [address] [place] [address], [place] [id number] Wai Lowry MD [address] [place] [address] [place] [address] Chronic left shoulder pain (Primary [...] survey that will be sent to you.* [facility] Orthopaedic office contact information: Formerly [facility] [address] [place] [address] [facility] [address] [facility], 2nd floor, [place] [address] [facility] [address] [place] [address] [facility] [address] [place] [address] [address]. [address], [place] [address] Please contact Fransico Kim (clinical nurse specialist) at or email: [email or web address] if you have any further questions or concerns. Sincerely, Wai Lowry MD Team Physician for the [facility] [email or web address] documented in this encounter Progress Notes * Wai Lowry MD - 11/16/2018 1:09 PM CDT Images from the original note were not included. Wai Lowry MD [facility] Orthopaedic Sports Medicine Adult and Pediatric [...] MCG-UNIT Take by mouth. ??? nystatin (MYCOSTATIN) [id number] UNIT/GM powder 0 ??? omeprazole (PRILOSEC) 20 [...] ??? BIOPSY ??? HX SPINAL FUSION ??? GA FEMUR/KNEE SURG UNLISTED both knees ??? LUTHER [...] test is negative. Posterior apprehension is negative. Burnett's test is negative. Shoulder impingement test is [...] be reached at and by email at [email or web address]. Sincerely, Wai Lowry MD * Isabelle Manzano - 11/16/2018 12:45 PM CDT Left shoulder pain f/u. Pt has been seeing Dr. Ornelas for pain management. documented in this encounter Procedure Notes * Wai Lowry MD - 11/16/2018 2:15 PM CDTAssociated Order(s): PROCDOC LARGE JOINT INJECTION Procedure(s): GA DRAIN/INJECT LARGE JOINT/BURSA Pre-Procedure Diagnose(s): Chronic left [...] Procedure Name Priority Date/Time Associated Diagnosis Comments GA DRAIN/INJECT LARGE JOINT/BURSA Routine 11/16/2018 2:26 PM CDT Chronic left shoulder pain documented in this encounter Results * GA DRAIN/INJECT LARGE JOINT/BURSA (11/16/2018 2:26 PM CDT) [...] Shoulder documented in this encounter Care Teams Aquarium Specialist Relationship Specialty Start Date End Date Blake Lindsey MD [address] [place] [address] PCP - General 05/20/16 documented as of this encounter
--- OUTSIDE RECORDS SUMMARY | 2024-07-29 17:51 | XMS_ITS | Encounter Summary ---
Author Organization [facility] Health Address [address] [facility] [address] Care Team Providers Care Live Hanger Name Role Phone Blake Lindsey MD Primary Care Provider [phone] Encounter Details Date Type Department Care Team (Latest Contact Info) Description 06/06/2020 1:43 PM DOPE POURER - 06/06/2020 11:[address] [facility] Hospital Encounter [facility] [address] [facility], 2nd [place] [address] Castillo Max MD [address] [place] [address] Rd [address] [place], [place] [id number] Discharge Disposition: Home or Self Care Social [...] by mouth 3 times daily 06/04/2020 NYSTOP [id number] UNIT/GM powder Apply 1 Dose to affected [...] Associated Diagnosis Comments CBC W AUTO DIFFERENTIAL [facility] 06/06/2020 1:48 PM DOPE POURER Hodgkin lymphoma, unspecified Hodgkin lymphoma type, unspecified body region (HCC) COMPREHENSIVE METABOLIC PANEL [facility] 06/06/2020 1:48 PM DOPE POURER Hodgkin lymphoma, unspecified Hodgkin lymphoma type, unspecified body region (HCC) documented in this encounter Results * (ABNORMAL) COMPREHENSIVE METABOLIC PANEL (06/06/2020 1:48 PM DOPE POURER) BUN 11 7 - 26 mg/dL 06/06/2020 2:30 PM [facility] Creatinine 0.7 0.6 - 1.2 mg/dL 06/06/2020 2:30 PM [facility] Sodium 141 136 - 145 mmol/L 06/06/2020 2:30 PM [facility] Potassium 4.1 3.5 - 4.5 mmol/L 06/06/2020 2:30 PM [facility] Chloride 108(H) 98 - 107 mmol/L 06/06/2020 2:30 PM [facility] CO2 22 22 - 29 mmol/L 06/06/2020 2:30 PM [facility] Glucose 128(H) 70 - 115 mg/dL 06/06/2020 2:30 PM [facility] Calcium 9.8 8.4 - 10.2 mg/dL 06/06/2020 2:30 PM [facility] Protein Total 7.4 6.0 - 8.3 g/dL 06/06/2020 2:30 PM [facility] Albumin 4.0 3.4 - 5.0 g/dL 06/06/2020 2:30 PM [facility] Bilirubin Total 0.4 0.2 - 1.2 mg/dL 06/06/2020 2:30 PM [facility] Alkaline Phosphatase 95 40 - 150 Units/L 06/06/2020 2:30 PM [facility] ALT 14 0 - 55 Units/L 06/06/2020 2:30 PM [facility] AST 14 5 - 34 Units/L 06/06/2020 2:30 PM [facility] Anion Gap 15 8 - 18 06/06/2020 2:30 PM [facility] BUN/Creatinine Ratio 16 7 - 23 06/06/2020 2:30 PM [facility] Osmolality Calculated 293 270 - 300 mOsm/kg 06/06/2020 2:30 PM [facility] Albumin/Globulin Ratio 1.2 1.1 - 2.3 06/06/2020 2:30 PM [facility] eGFR >60 >60 mL/min/1.7 3 m2 06/06/2020 2:30 PM [facility] Blood BLOOD SPECIMEN / Unknown Lab Venipuncture / Unknown 06/06/2020 1:48 PM [facility] 06/06/2020 2:[address] [facility] Castillo Max MD LAB - CHEMISTRY OR DERABLES [facility] [address] [place] [address], [facility] [phone] * (ABNORMAL) CBC WITH DIFFERENTIAL (06/06/2020 1:48 PM DOPE POURER) WBC 7.4 3.5 - 10.5 10? 3 /uL 06/06/2020 2:08 PM [facility] RBC 4.54 3.90 - 5.00 10? 6 /uL 06/06/2020 2:08 PM [facility] Hemoglobin 14.6 12.0 - 15.5 g/dL 06/06/2020 2:08 PM [facility] Hematocrit 44.0 35.0 - 45.0 % 06/06/2020 2:08 PM [facility] MCV 96.9 81.0 - 97.0 fL 06/06/2020 2:08 PM [facility] MCH 32.2 28.0 - 34.0 pg 06/06/2020 2:08 PM [facility] MCHC 33.2 32.0 - 36.0 g/dL 06/06/2020 2:08 PM [facility] Platelet Count 165 150 - 400 10? 3 /uL 06/06/2020 2:08 PM [facility] RDW-SD 45.5 36.0 - 50.0 fL 06/06/2020 2:08 PM [facility] RDW-CV 12.8 11.2 - 14.8 % 06/06/2020 2:08 PM [facility] MPV 8.9(L) 9.3 - 12.8 fL 06/06/2020 2:08 PM [facility] nRBC Absolute 0.00 0 10? 3 /uL 06/06/2020 2:08 PM [facility] nRBC Auto 0.0 0 /100 WBC 06/06/2020 2:08 PM [facility] Neutrophils % 72.0(H) 35.0 - 70.0 % 06/06/2020 2:08 PM [facility] Lymphocytes % 21.0 19.7 - 55.1 % 06/06/2020 2:08 PM [facility] Monocytes % 3.8 3.0 - 15.0 % 06/06/2020 2:08 PM [facility] Eosinophils % 2.8 0.0 - 6.0 % 06/06/2020 2:08 PM [facility] Basophil % 0.3 0.0 - 1.5 % 06/06/2020 2:08 PM [facility] Neutrophils Absolute 5.4 1.6 - 7.0 10? 3 /uL 06/06/2020 2:08 PM [facility] Lymphocyte Absolute 1.6 0.8 - 2.9 10? 3 /uL 06/06/2020 2:08 PM [facility] Monocytes Absolute 0.28 0.14 - 0.66 10? 3 /uL 06/06/2020 2:08 PM [facility] Eosinophils Absolute 0.21 0.00 - 0.45 10? 3 /uL 06/06/2020 2:08 PM [facility] Basophils Absolute 0.02 0.00 - 0.06 10? 3 /uL 06/06/2020 2:08 PM [facility] Immature Granulocytes % 0.1 0.0 - 1.0 % 06/06/2020 2:08 PM [facility] Blood BLOOD SPECIMEN / Unknown Lab Venipuncture / Unknown 06/06/2020 1:48 PM D[facility] 06/06/2020 2:01 PM D[facility] Castillo Max MD LAB - HEMATOLOGY O RDERABLES [facility] [address] [place] [address] [phone] documented in this encounter Visit Diagnoses Diagnosis Hodgkin lymphoma, unspecified Hodgkin lymphoma type, unspecified body region (HCC) documented in this encounter Care Teams Live Hanger Relationship Specialty Start Date End Date Blake Lindsey MD [address] [place] [address] PCP - General 05/20/16 documented as of this encounter
--- OUTSIDE RECORDS SUMMARY | 2024-07-29 17:51 | XMS_ITS | Encounter Summary ---
Author Organization [facility] Health Address [address] [place] [address] Care Team Providers Care Flight Director Name Role Phone Blake Lindsey MD Primary Care Provider [phone] Reason for Visit * Reason Onset Date Comments Medication Prior Auth Request 01/20/2018 Encounter Details Date Type Department Care Team (Late st Contact Info) Description 01/20/2018 Telephone [facility] Critical Care [facility] Sleep Medicine [address] [place] [address] Noemi Yen Medication Prior Auth [...] filedocumented in this encounter Care Teams Flight Director Relationship Specialty Start Date End Date Blake Lindsey MD [address] [place] [address] PCP - General 05/20/16 documented as of this encounter
--- OUTSIDE RECORDS SUMMARY | 2024-07-29 17:51 | XMS_ITS | Encounter Summary ---
Author Organization [facility] Health Address [address] [place] [address] Care Team Providers Care Sales Representative [employer] Name Role Phone Blake Lindsey MD Primary Care Provider [phone] Reason for Visit * Reason Onset Date Comments Returned Call 01/05/2019 Encounter Details Date Type Department Care Team (Late st Contact Info) Description 01/05/2019 Telephone [facility] Orthopedics [address] [place] [address], [place] [address] Wai Lowry MD [address] [place] [address] OF ORTHOPEDIC SURGERY [place], [place] [id number] Returned Call Social History Tobacco Use Types [...] filedocumented in this encounter Care Teams Sales Representative [employer] Relationship Specialty Start Date End Date Blake Lindsey MD [address] [place] [address] PCP - General 05/20/16 documented as of this encounter
--- OUTSIDE RECORDS SUMMARY | 2024-07-29 17:51 | XMS_ITS | Encounter Summary ---
Author Organization [facility] Health Address [address] [facility] [place] [address] Care Team Providers Care Playground Equipment Erector Name Role Phone Blake Lindsey MD Primary Care Provider [phone] Reason for Visit * Reason Comments Establish Care Breast Reduction Encounter Details Date Type Department Care Team (Late st Contact Info) Description 04/10/2019 9:30 AM CDT Office Visit [facility] [address] [place] [address] Charlie Wade MD [address] [place] [address] Chronic midline back pain, unspecified [...] 1 T PO QD 0 ??? NYSTOP [id number] UNIT/GM powder TREVER AA BID 1 ??? [...] professional fitted bras - recommended going to [employer] ?? Referral placed for PT for evaluation and treatment of bilateral shoulder, neck and back pain. ?? Recommend approximately 20 pounds of weight loss to achieve a BMI of 35 or less. ?? Continue with nystatin powder. ?? Follow up with Dr. Wade in 2 months. Please call to obtain/secure appointment and follow up. Nica Alberto MD Plastic Surgery Resident, PGY-1 Pager: [phone] 04/10/2019 12:33 PM Nights (5pm-7am) and weekends, please call [phone] and ask the senior power plant operator to page the plastic surgery resident general production manager. documented in this encounter Plan of Treatment Not on file documented as of this encounter Visit Diagnoses Diagnosis Chronic midline back pain, unspecified back location- Primary documented in this encounter Care Teams Playground Equipment Erector Relationship Specialty Start Date End Date Blake Lindsey MD [address] [place] [address] PCP - General 05/20/16 documented as of this encounter
--- OUTSIDE RECORDS SUMMARY | 2024-07-29 17:51 | XMS_ITS | Encounter Summary ---
Author Organization [facility] Health Address [address] [place] [address] Care Team Providers Care Senior Air Director Name Role Phone Blake Lindsey MD Primary Care Provider [phone] Encounter Details Date Type Department Care Team (Late st Contact Info) Description 11/16/2018 Orders Only [facility] Orth[facility]ics [address] [place] [address], [place] [phone] Wai Lowry MD [address] [place] [address] OF ORTHOPEDIC SURGERY [place], [place] [id number] Chronic left shoulder pain Social History Tobacco [...] region documented in this encounter Care Teams Senior Air Director Relationship Specialty Start Date End Date Blake Lindsey MD [address] [place] [address] PCP - General 05/20/16 documented as of this encounter
--- OUTSIDE RECORDS SUMMARY | 2024-07-29 17:51 | XMS_ITS | Encounter Summary ---
Author Organization [facility] Address [address] [place] [address] Care Team Providers Care Food Order Expediter Name Role Phone Blake Lindsey MD Primary Care Provider [phone] Reason for Visit * Reason Comments Heart [...] st Contact Info) Description 08/21/2018 9:14 AM [facility] - 08/21/2018 1:00 PM [facility] Emergency [facility] EMERGENCY DEPARTMENT [address] [place] [id number] Gabi Arnett MD [facility] [place] [address] Fever, unspecified fever cause (Primary [...] Comments Blood Pressure 111/73 08/21/2018 12:30 PM CYBER OPERATOR Pulse 88 08/21/2018 12:45 PM CYBER OPERATOR Temperature 36.2 ??C (97.2 ??F) 08/21/2018 10:[address] Respiratory Rate 14 08/21/2018 12:30 PM CYBER OPERATOR Oxygen Saturation 100% 08/21/2018 12:45 PM CYBER OPERATOR Inhaled Oxygen Concentration - - Weight 90.7 kg (200 lb) 08/21/2018 10:02 AM CYBER OPERATOR Height 160 cm (5' 3 ) 08/21/2018 10:02 AM CYBER OPERATOR Body Mass Index 35.43 08/21/2018 10:02 AM CYBER OPERATOR documented in this encounter Discharge Instructions * Discharge Instructions* Gabi Arnett MD - 08/21/2018 12:25 PM CYBER OPERATOR Fever in Adults WHAT YOU NEED TO [...] the back of your neck. ?? Copyright [employer] 2018 Information is for End User's use only and may not be sold, redistributed or otherwise used for commercial purposes. All illustrations and images included in CareNotes?? are the copyrighted property of [employer] or [employer] The above information is an laundry aide only. It is not intended as [...] and want help to quit. ?? Copyright [employer] 2018 Information is for End User's use only and may not be sold, redistributed or otherwise used for commercial purposes. All illustrations and images included in CareNotes?? are the copyrighted property of [employer]. or [employer] The above information is an laundry aide only. It is not intended as [...] ask them during your visits. ?? Copyright [employer] 2018 Information is for End User's use only and may not be sold, redistributed or otherwise used for commercial purposes. All illustrations and images included in CareNotes?? are the copyrighted property of [employer] or [employer] The above information is an laundry aide only. It is not intended as medical advice for individual conditions or treatments. Talk to your doctor, nurse or pharmacist before following any medical regimen to see if it is safe and effective for you. R OPERATOR documented in this encounter Medications at Time [...] Take by mouth. 09/09/2016 11/17/2018 nystatin (MYCOSTATIN) [id number] UNIT/GM powder 0 09/24/20172018 omeprazole (PRILOSEC) 20 [...] normal. Patient verbalized understanding of discharge instructions. R OPERATOR * Charlie Quintanilla RN - 08/21/2018 12:00 PM CST Patient denies any new onset symptoms and has no further complaints. No changes in patients assessment or condition when compared to previous assessment. R OPERATOR * Charlie Quintanilla RN - 08/21/2018 11:00 AM CST Patient denies any new onset symptoms and has no further complaints. No changes in patients assessment or condition when compared to previous assessment. R OPERATOR * Charlie Quintanilla RN - 08/21/2018 10:50 AM CST Patient back to room from [facility]. R OPERATOR * Charlie Quintanilla RN - 08/21/2018 10:18 AM CST Patient to bedside commode at this time. R OPERATOR * Gabi Arnett MD - 08/21/2018 10:09 AM CST ED Attending Note Interval History: Lakeisha Alejandra is a 47 y.o. female with history ofhodgkin's lymphoma currently in remission presenting to the ED c/o multiple complaints including bilateral arm swelling and generalized pains. 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 Says she has had this swelling before [...] ??? BIOPSY ??? HX SPINAL FUSION ??? IN FEMUR/KNEE SURG UNLISTED both knees ??? LUTHER [...] not screen for Propoxyphene, Meprobamate, Carisoprodol, Trazodone, gwim-mqn-znuuvqy medications and/or volatiles (Acetone, Isopropanol, Methanol or Ethylene Glycol). Ethanol, Salicylate, Acetaminophen, Tricyclic Antidepressants and several therapeutic drugsmay be individually assayed in serum or plasma specimen. Toxicology testing by the [facility] is an aid to medical diagnosisand [...] Contact information: [address] [place] [address] By signing my name below, I, [...] Dr. Arnett Date: 08/21/2018 Time: 12:26 PM R OPERATOR * Charlie Quintanilla RN - 08/21/2018 10:00 AM CST Patient denies any new onset symptoms and has no further complaints. No changes in patients assessment or condition when compared to previous assessment. R OPERATOR * Charlie Quintanilla RN - 08/21/2018 9:32 AM CST Patient presents via [facility] due to what she felt like was [...] patient has difficulty for no apparent reason. R OPERATOR * Pooja Grover APRN-CNP - 08/21/2018 9:15 AM CST Bed: 06 Expected date: Expected time: Means of arrival: Comments: Ems R OPERATOR documented in this encounter Plan of Treatment Not on file documented as of this encounter Procedures Procedure Name Priority Date/Time Associated Diagnosis Comments XR CHEST 2VW STAT 08/21/2018 10:42 AM CYBER OPERATOR Fever, unspecified fever cause URINALYSIS W/MICROSCOPIC NO CULTURE STAT 08/21/2018 10:27 AM CYBER OPERATOR URINE DRUG SCREEN IMMUNOASSAY STAT 08/21/2018 10:27 AM CYBER OPERATOR INFLUENZA A+B PCR STAT 08/21/2018 10: 25 AM CYBER OPERATOR CBC W AUTO DIFFERENTIAL STAT 08/21/2018 10:23 AM CYBER OPERATOR COMPREHENSIVE METABOLIC PANEL STAT 08/21/2018 10:23 AM CYBER OPERATOR documented in this encounter Results * XR CHEST PA AND LATERAL (08/21/2018 10:42 AM CYBER OPERATOR) Anatomical Region Laterality Modality Chest Radiographic Jonna ging 08/21/2018 10:4 1 AM CYBER OPERATOR Impressions 08/21/2018 3:46 PM CYBER OPERATOR IMPRESSION: No acute pulmonary process. Dictated by Frantz Loaiza MD (limited radiology technician). Dr. RIMA Muller have personally reviewed and interpreted this examination/study. This report was electronically signed by RIMA TERESA ??on 08/21/2018 3:46 PM . Narrative 08/21/2018 3:46 PM CYBER OPERATOR EXAMINATION: XR CHEST 2VW HISTORY: swelling COMPARISON: [...] Frantz Loaiza MD (limited radiology technician). Dr. RIMA Muller have personally reviewed and interpreted this examination/study. This report was electronically signed by RIMA TERESA on 08/21/20183:46 PM . Gabi Arnett MD DIAGNOSTIC IMAGING O RDERABLES * (ABNORMAL) URINALYSIS W/MICROSCOPIC NO CULTURE (08/21/2018 10:27 AM [facility]) Color UA Straw Straw, Yellow, Colorless 08/21/2018 10:38 AM [facility] Clarity UA Clear Clear, Slt Cloudy 08/21/2018 10:38 AM [facility] Specific [place] UA 1.006 1.005 - 1.030 08/21/2018 10:38 AM [facility] pH UA 9.0(H) 5.0 - 8.0 pH 08/21/2018 10:38 AM [facility] Protein UA Negative Negative mg/dL 08/21/2018 10:38 AM [facility] Glucose UA Negative Negative mg/dL 08/21/2018 10:38 AM [facility] Ketone UA Negative Negative mg/dL 08/21/2018 10:38 AM [facility] Bilirubin UA Negative Negative mg/dL 08/21/2018 10:38 AM [facility] Blood UA 1+(A) Negative 08/21/2018 10:38 AM [facility] Nitrite UA Negative Negative 08/21/2018 10:38 AM [facility] Leukocyte Esterase Negative Negative 08/21/2018 10:38 AM [facility] Urobilinogen UA Negative Negative mg/dL 08/21/2018 10:38 AM [facility] RBC UA 0-2 None Seen, 0-2, 3-5 /HPF 08/21/2018 10:38 AM [facility] WBC UA 0-5 None Seen, 0-5 /HPF 08/21/2018 10:38 AM [facility] Squamous Epithelial Cells UA None Seen None Seen, 0-2 /HPF 08/21/2018 10:38 AM [facility] Mucus UA 1+ None, 1+ /LPF 08/21/2018 10:38 AM [facility] Urine URINE SPECIMEN OBTAINED BY CLEAN CATCH PROCEDURE / Unknown Collection / Unknown 08/21/2018 10:27 AM [facility] 08/21/2018 10:30 AM [facility] Gabi Arnett MD LAB - URINALYSIS ORD ERABLES [address] [phone] * (ABNORMAL) DRUG SCREEN TOX URINE PANEL (08/21/2018 10:27 AM [facility]) Amphetamines Screen Urine Negative Negative : < 1000 ng/mL 08/21/2018 10:47 AM [facility] Barbiturates Screen Urine Negative Negative : < 200 ng/mL 08/21/2018 10:47 AM [facility] Benzodiazepine Screen Urine Negative Negative : < 200 ng/mL 08/21/2018 10:47 AM [facility] Opiates Urine Negative Negative : < 300 ng/mL 08/21/2018 10:47 AM [facility] Cocaine Metabolites Urine Negative Negative : < 300 ng/mL 08/21/2018 10:47 AM [facility] Phencyclidine Screen Urine Negative Negative : < 25 ng/ml 08/21/2018 10:47 AM [facility] Cannabinoids Screen Urine Positive(A) Negative : <50 ng/mL 08/21/2018 10:47 AM [facility] Comment: Positive urine cannabinoids (THC) screening results should be confirmed by another generally accepted non-immunological method such as gas chromatography or mass spectrometry. ? Methadone Screen Urine Negative Negative : < 300 ng/mL 08/21/2018 10:47 AM [facility] Urine URINE / Unknown Collection / Unknown 08/21/2018 10:27 AM [facility] 08/21/2018 10:30 AM [facility] Narrative [facility] - 08/21/2018 10:47 AM [facility] The Urine Toxicology Screening Panel does not screen for Propoxyphene, Meprobamate, Carisoprodol, Trazodone, vmjy-ssc-kawfjft medications and/or volatiles (Acetone, Isopropanol, Methanol or Ethylene Glycol). Ethanol, Salicylate, Acetaminophen, Tricyclic Antidepressants and several therapeutic drugs may be individually assayed in serum or plasma specimen. Toxicology testing by the [facility] is an aid to medical diagnosis and treatment of patients. No documented chain of custody was maintained. Results are intended to be used for clinical purposes only. ? Gabi Arnett MD LAB - URINE CHEMISTR Y ORDERABLES Performing Organization Address [facility] de Phone Number [address] [phone] * INFLUENZA A+B PCR (08/21/2018 10:25 AM CYBER OPERATOR) Influenza A Rapid GILLIAN Negative Negative 08/21/2018 10:52 AM CYBER OPERATOR [facility] Influenza B GILLIAN Rapid Negative Negative 08/21/2018 10:52 AM [facility] Microbiology SPECIMEN FROM NASOPHARYNGEAL STRUCTURE / Unknown Collection / Unknown 08/21/2018 10:25 AM CYBER OPERATOR 08/21/2018 10:27 AM CYBER OPERATOR Narrative [facility] - 08/21/2018 10:52 AM CYBER OPERATOR Assay performed by Nucleic Acid Amplification. Results [...] - MICROBIOLOGY O RDERABLES Performing Organization Address [facility]/ZIP Co de Phone Number [facility] [address] [phone] * (ABNORMAL) COMPREHENSIVE METABOLIC PANEL (08/21/2018 10:23 AM [facility]) BUN 6(L) 7 - 26 mg/dL 08/21/2018 10:46 AM [facility] Creatinine 0.7 0.6 - 1.2 mg/dL 08/21/2018 10:46 AM [facility] Sodium 142 136 - 145 mmol/L 08/21/2018 10:46 AM [facility] Potassium 3.2(L) 3.5 - 4.5 mmol/L 08/21/2018 10:46 AM [facility] Chloride 104 98 - 107 mmol/L 08/21/2018 10:46 AM [facility] CO2 22 22 - 29 mmol/L 08/21/2018 10:46 AM [facility] Glucose 119(H) 70 - 115 mg/dL 08/21/2018 10:46 AM [facility] Calcium 10.0 8.4 - 10.2 mg/dL 08/21/2018 10:46 AM [facility] Protein Total 7.7 6.0 - 8.3 g/dL 08/21/2018 10:46 AM [facility] Albumin 4.1 3.4 - 5.0 g/dL 08/21/2018 10:46 AM [facility] Bilirubin Total 0.7 0.2 - 1.2 mg/dL 08/21/2018 10:46 AM [facility] Alkaline Phosphatase 99 40 - 150 Units/L 08/21/2018 10:46 AM [facility] ALT 47 0 - 55 Units/L 08/21/2018 10:46 AM [facility] AST 32 5 - 34 Units/L 08/21/2018 10:46 AM [facility] Anion Gap 19(H) 8 - 18 08/21/2018 10:46 AM [facility] BUN/Creatinine Ratio 9 7 - 23 08/21/2018 10:46 AM [facility] Osmolality Calculated 293 270 - 300 mOsm/kg 08/21/2018 10:46 AM [facility] Albumin/Globulin Ratio 1.1 1.1 - 2.3 08/21/2018 10:46 AM [facility] eGFR >60 >60 mL/min/1.7 3 m2 08/21/2018 10:46 AM [facility] Blood BLOOD SPECIMEN / Unknown Venipuncture / Unknown 08/21/2018 10:23 AM [facility] 08/21/2018 10:27 AM CYBER OPERATOR Gabi Arnett MD LAB - CHEMISTRY CHRISOTPHER DE LA GAR[facility] Organization Address City/State/[facility] Co de Phone Number [address] [phone] * (ABNORMAL) CBC W AUTO DIFFERENTIAL (08/21/2018 10:23 AM [facility]) WBC 10.3 3.5 - 10.5 10? 3 /uL 08/21/2018 10:31 AM [facility] RBC 4.79 3.90 - 5.00 10? 6 /uL 08/21/2018 10:31 AM [facility] Hemoglobin 15.5 12.0 - 15.5 g/dL 08/21/2018 10:31 AM [facility] Hematocrit 45.1(H) 35.0 - 45.0 % 08/21/2018 10:31 AM [facility] MCV 94.2 81.0 - 97.0 fL 08/21/2018 10:31 AM [facility] MCH 32.4 28.0 - 34.0 pg 08/21/2018 10:31 AM [facility] MCHC 34.4 32.0 - 36.0 g/dL 08/21/2018 10:31 AM [facility] Platelet Count 230 150 - 400 10? 3 /uL 08/21/2018 10:31 AM [facility] RDW-SD 46.9 36.0 - 50.0 fL 08/21/2018 10:31 AM [facility] RDW-CV 13.4 11.2 - 14.8 % 08/21/2018 10:31 AM [facility] MPV 8.7(L) 9.3 - 12.8 fL 08/21/2018 10:31 AM [facility] nRBC Absolute 0.00 0 10? 3 /uL 08/21/2018 10:31 AM [facility] nRBC Auto 0.0 0 /100 WBC 08/21/2018 10:31 AM [facility] Neutrophils % 74.9(H) 35.0 - 70.0 % 08/21/2018 10:31 AM [facility] Lymphocytes % 19.2(L) 19.7 - 55.1 % 08/21/2018 10:31 AM [facility] Monocytes % 4.3 3.0 - 15.0 % 08/21/2018 10:31 AM [facility] Eosinophils % 1.0 0.0 - 6.0 % 08/21/2018 10:31 AM [facility] Basophil % 0.3 0.0 - 1.5 % 08/21/2018 10:31 AM [facility] Neutrophils Absolute 7.8(H) 1.6 - 7.0 10? 3 /uL 08/21/2018 10:31 AM [facility] Lymphocyte Absolute 2.0 0.8 - 2.9 10? 3 /uL 08/21/2018 10:31 AM [facility] Monocytes Absolute 0.44 0.14 - 0.66 10? 3 /uL 08/21/2018 10:31 AM [facility] Eosinophils Absolute 0.10 0.00 - 0.45 10? 3 /uL 08/21/2018 10:31 AM [facility] Basophils Absolute 0.03 0.00 - 0.06 10? 3 /uL 08/21/2018 10:31 AM [facility] Immature Granulocytes % 0.3 0.0 - 1.0 % 08/21/2018 10:31 AM [facility] Blood BLOOD SPECIMEN / Unknown Venipuncture / Unknown 08/21/2018 10:23 AM [facility] 08/21/2018 10:27 AM [facility] Gabi Arnett MD LAB - HEMATOLOGY ORD ERABLES [address] [phone] documented in this encounter Visit Diagnoses Diagnosis [...] 1030 $ New Bag/Syringe 08/21/2018 10:22 AM CYBER OPERATOR 1,000 mL 3000 mL/hr ALPRAZolam (XANAX) tablet 1 mg 1 mg, Oral, NOW, 1 dose, On 08/21/18 at 1015 $ Given 08/21/2018 10:22 AM CYBER OPERATOR 1 mg potassium chloride ER (KLOR-CON M) tablet 40 mEq 40 mEq, Oral, NOW, 1 dose, On 08/21/18 at 1115, Do not crush or chew. $ Given 08/21/2018 11:45 AM CYBER OPERATOR 40 mEq documented in this encounter Active and Recently Administered Medications Times are shown in CYBER OPERATOR. Scheduled Medication Order 08/19/2018 08/20/2018 08/21/2018 0.9% [...] RN) documented in this encounter Care Teams Food Order Expediter Relationship Specialty Start Date End Date Blake Lindsey MD [address] [place] [address] PCP - General 05/20/16 documented as of this encounter
--- OUTSIDE RECORDS SUMMARY | 2024-07-29 17:51 | XMS_ITS | Encounter Summary ---
Author Organization [facility] Health Address [address] [place] [address] Care Team Providers Care Superintendent Stations Name Role Phone Blake Lindsey MD Primary Care Provider [phone] Reason for Visit * Radiology Services (Routine) - Closed Specialty Diagnoses / Procedures Referred By Ariel t Referred To Contact Mammography Diagnoses Disorder of breast Breast lump Procedures [facility]AMMO [facility]ILAT DIAGNOSTIC Castillo Max MD [address] [place] [address] [facility] Op [address] [place] [address] Referral ID Status Reason Start Date Expiration Date Visits Re quested Visits Authorized [id number] Closed 11/17/2018 05/16/2019 1 1 Encounter Details Date Type Department Care Team (Latest Contact Info) Description 11/28/2018 1:49 PM CDT - 11/28/2018 1:53 PM CDT Hospital Encounter [facility] [address] [place] [address] Castillo Max MD [address] [place] [address] Discharge Disposition: Home or Self [...] PO QD 0 10/21/2018 01/12/2019 nystatin (MYCOSTATIN) [id number] UNIT/GM powder 0 09/24/20172018 ondansetron (ZOFRAN) 8 [...] sonography and digital palpation was performed by nc machinist and physician throughout the inferior left breast. [...] breast documented in this encounter Care Teams Superintendent Stations Relationship Specialty Start Date End Date Blake Lindsey MD [address] [place] [address] PCP - General 05/20/16 documented as of this encounter
--- OUTSIDE RECORDS SUMMARY | 2024-07-29 17:51 | XMS_ITS | Encounter Summary ---
Author Organization [facility] Health Address [address] [place] [address] Care Team Providers Care Manager Audit Name Role Phone Blake Lindsey MD Primary Care Provider [phone] Encounter Details Date Type Department Care Team (Late st Contact Info) Description 12/16/2018 Orders Only [facility] Health Pain Care [address] [facility] [address] [place] [address] Radha Damian, RN Social History Tobacco Use [...] CDT Pt called and spoke with MAYANK Davdi about her butrans patch. She is requesting an increase. Lay spoke with Dr. Ornelas and approved 20 mcg/hr patches. New script called to pharmacy. documented in this encounter Plan of Treatment Not on file documented as of this encounter Visit Diagnoses Not on filedocumented in this encounter Care Teams Manager Audit Relationship Specialty Start Date End Date Blake Lindsey MD [address] [place] [address] PCP - General 05/20/16 documented as of this encounter
--- OUTSIDE RECORDS SUMMARY | 2024-07-29 17:51 | XMS_ITS | Encounter Summary ---
Author Organization [facility] Health Address [address] [facility] [place] [address] Care Team Providers Care Dynamo Tender Name Role Phone Blake Lindsey MD Primary Care Provider [phone] Reason for Visit * Reason Onset Date Comments Medication Issue 12/16/2018 Encounter Details Date Type Department Care Team (Late st Contact Info) Description 12/16/2018 Telephone [facility] [address] [facility] [address] [place] [address] Lay Mckeon, CRUSHING MACHINE OPERATOR-DIRECTOR OF PROPERTY MANAGEMENT [address] [facility] [address] [place] [address] Medication Issue Social History Tobacco Use Types [...] on filedocumented in this encounter Care Teams Dynamo Tender Relationship Specialty Start Date End Date Blake Lindsey MD [address] [place] [address] PCP - General 05/20/16 documented as of this encounter
--- OUTSIDE RECORDS SUMMARY | 2024-07-29 17:51 | XMS_ITS | Encounter Summary ---
Author Organization [facility] Health Address [address] [place] [address] Care Team Providers Care Social Worker Assistant Name Role Phone Blake Lindsey MD Primary Care Provider [phone] Reason for Visit * Reason Comments Ear Problem Bilateral- Right wor se Nose Problem Encounter Details Date Type Department Care Team (Late st Contact Info) Description 07/11/2020 1:00 PM SEX THERAPIST Office Visit [facility] [address] [place] [address] Nia Augustin, SMALL ANIMAL VETERINARIAN-VOLLEYBALL ASSEMBLER [address] [place] [address] TMJ (temporomandibular joint disorder) (Primary Dx); Non-seasonal [...] Comments Blood Pressure 113/80 07/11/2020 1:13 PM SEX THERAPIST Pulse 84 07/11/2020 1:13 PM SEX THERAPIST Temperature 36.1 ??C (97 ??F) 07/11/2020 1:13 PM SEX THERAPIST Respiratory Rate - - Oxygen Saturation - - Inhaled Oxygen Concentration - - Weight 91.6 kg (202 lb) 07/11/2020 1:13 PM SEX THERAPIST Height 160 cm (5' 3 ) 07/11/2020 1:13 PM SEX THERAPIST Body Mass Index 35.78 07/11/2020 1:13 PM SEX THERAPIST documented in this encounter Functional Status Functional [...] Patient Instructions* Samy Clark 07/11/2020 1:40 PM SEX THERAPIST Thank you for visiting [facility] - Head & Neck Surgery. We [...] an appointment, please call our office at [phone] Wednesday through Wednesday from 8:00 am to4:30 pm. You can also request a routine appointment through your [employer] account. ??? Prescription Refills Contact your [...] the medical exchange at and ask the stretcher leveler operator to page the ENT physician puff ironer. *Caller ID blocking service will need to be turned off for your call to be returned. We also specialize in Hearing Aids, Allergy testing, swallowing disorders, voice problems, cancer diagnosis, and so much more. Visit our website at [email or web address] for information about our practice and an interactive health encyclopedia. THERAPIST documented in this encounter Progress Notes * Nia Augustin, SMALL ANIMAL VETERINARIAN-VOLLEYBALL ASSEMBLER - 07/11/2020 1:42 PM CST [facility] Department of Otolaryngology DATE OF VISIT: 07/11/2020 [...] fluticasone propionate (FLONASE) 50 MCG/ACT nasal spray Drake 2 sprays into each nostril once daily [...] days ??? NARCAN 4 MG/0.1ML nasal spray Drake 4 mg into each nostril as needed ??? NYSTOP 061943 UNIT/GM powder TREVER AA BID ??? ondansetron [...] care with my signing provider Dr. Tijerina THERAPIST * Samy Clark 07/11/2020 1:05 PM CST Review of Systems Lakeisha reports the following:Ears: ear pain Nose: Wakes up everyday and its dry and crusty THERAPIST documented in this encounter Plan of Treatment Not on file documented as of this encounter Visit Diagnoses Diagnosis TMJ (temporomandibular joint disorder)- Primary Temporomandibular joint disorders, unspecified Non-seasonal allergic rhinitis, unspecified trigger * Assessment & Plan Note - Nia Augustin APRN-CNP - 07/11/2020 1:56 PM SEX THERAPIST Associated Problem(s): Non-seasonal allergic rhinitis Patient states [...] infection. She should follow up as needed. THERAPIST * Assessment & Plan Note - Nia Augustin APRN-CNP - 07/11/2020 1:54 PM SEX THERAPIST Associated Problem(s): TMJ (temporomandibular joint disorder) Advised [...] symptoms for further evaluation and treatment recommendations. THERAPIST documented in this encounter Care Teams Social Worker Assistant Relationship Specialty Start Date End Date Blake Lindsey MD [address] [place] [address] PCP - General 05/20/16 documented as of this encounter
--- OUTSIDE RECORDS SUMMARY | 2024-07-29 17:51 | XMS_ITS | Encounter Summary ---
Author Organization [facility] Health Address [address] [place] [address] Care Team Providers Care Manager Office Name Role Phone Blake Lindsey MD Primary Care Provider [phone] Reason for Visit * Reason Comments Establish Care Allergic Rhinitis Encounter Details Date Type Department Care Team (Late st Contact Info) Description 03/09/2019 9:00 AM CDT Office Visit [facility] [address], [address] [place] [address] Jah Ochoa MD [address] [place] [address] [place] [address] Otalgia of right ear (Primary Dx); TMJ [...] 9:02 AM CDT Thank you for visiting [facility] Otolaryngology - Head & Neck Surgery. We [...] an appointment, please call our office at [phone] Wednesday through Wednesday from 8:30 am to4:30 pm. You can also request a routine appointment through your [employer] account. ??? Prescription Refills Contact your pharmacy [...] the medical exchange at and ask the doubling machine operator to page the ENT physician media production operator. *Caller ID blocking service will need to be turned off for your call to be returned. We also specialize in Hearing Aids, Allergy testing, swallowing disorders, voice problems, cancer diagnosis, and so much more. Visit our website at [email or web address] for information about our practice and an [...] asymmetry, or inflammation Septum: Good alignment Turbinates: [place], non-edematous, without discharge Mucosa: [place], healthy appearing Oral Cavity: Edentulous No perioral [...] unspecified documented in this encounter Care Teams Manager Office Relationship Specialty Start Date End Date Blake Linsdey MD [address] [place] [id number] PCP - General 05/20/16 documented as of this encounter
--- OUTSIDE RECORDS SUMMARY | 2024-07-29 17:51 | XMS_ITS | Encounter Summary ---
Author Organization [facility] Health Address [address] [place] [address] Care Team Providers Care Digital Designer Name Role Phone Blake Lindsey MD Primary Care Provider [phone] Reason for Referral * Radiology Services (Routine) - Closed Specialty Diagnoses / Procedures Referred By Contzohreh t Referred To Contact Mammography Diagnoses Disorder of breast Breast lump Procedures MAMMO BILAT DIAGNOSTIC Castillo Max MD [address] [place] [address] [facility] Breast Center Op [address] [place] [address] Referral ID Status Reason Start Date Expiration Date Visits Re quested Visits Authorized [id number] Closed 11/17/2018 05/16/2019 1 1 Encounter Details Date Type Department Care Team (Late st Contact Info) Description 11/17/2018 2:00 PM CDT [facility] [address] [place] [address] Castillo Max MD [address] [place] [address] Breast lump (Primary Dx); Disorder [...] Disp: , Rfl: 0 ??? nystatin (MYCOSTATIN) 426811 UNIT/GM powder, , Disp: , Rfl: 0 [...] pain. Gave her the number for a portrait painter today to call as she has no specialist at this point. Breast lump. Patient has felt this. Recommended a bilateral diagnostic mammogram, which she will have at [facility]. Recurrent sinusitis. She has no hypogamm and incomplete relief with abx. Referral to ENT at [facility] made today. Castillo Max M.D. Director, Blood and Marrow Transplantation Cashier Supervisor, Department of Internal Medicine [facility] documented in this encounter Plan of [...] sonography and digital palpation was performed by real estate agent and physician throughout the inferior left breast. [...] breast documented in this encounter Care Teams Digital Designer Relationship Specialty Start Date End Date Blake Lindsey MD [address] [place] [address] PCP - General 05/20/16 documented as of this encounter
--- OUTSIDE RECORDS SUMMARY | 2024-07-29 17:51 | XMS_ITS | Encounter Summary ---
Author Organization [facility] Health Address [address] [place] [address] Care Team Providers Care Information Services Assistant Name Role Phone Blake Lindsey MD Primary Care Provider [phone] Reason for Visit * Radiology Services (Routine) - Closed Specialty Diagnoses / Procedures Referred By Contzohreh t Referred To Contact Mammography Diagnoses Disorder of breast Breast lump Procedures US BREAST LEFT LTD Castillo Max MD [address] [place] [address] [facility] Breast Center Op [address] [place] [address] Referral ID Status Reason Start Date Expiration Date Visits Re quested Visits Authorized [id number] Closed 11/28/2018 05/27/2019 1 1 Encounter Details Date Type Department Care Team (Latest Contact Info) Description 11/28/2018 1:54 PM CDT - 11/28/2018 11:59 PM CDT Hospital Encounter [facility] [address] [place] [address] Castillo Max MD [address] [place] [address] Discharge Disposition: Home or Self [...] PO QD 0 10/21/2018 01/12/2019 nystatin (MYCOSTATIN) 925913 UNIT/GM powder 0 09/24/20172018 ondansetron (ZOFRAN) 8 [...] sonography and digital palpation was performed by block inspector and physician throughout the inferior left [...] breast documented in this encounter Care Teams Information Services Assistant Relationship Specialty Start Date End Date Blake Lindsey MD [address] [place] [address] PCP - General 05/20/16 documented as of this encounter
--- OUTSIDE RECORDS SUMMARY | 2024-07-29 17:51 | XMS_ITS | Encounter Summary ---
Author Organization [facility] Address [address] [place] [address] Care Team Providers Care Asphalt Spreader Name Role Phone Blake Lindsey MD Primary Care Provider [phone] Encounter Details Date Type Department Care Team (Late st Contact Info) Description 12/09/2018 Orders Only [facility] - Orthopedics [address] [place] [address] Fransico Kim S, DEDICATED TRUCK DRIVER-[facility] [address] [place] [address] Chronic left shoulder pain Social History Tobacco [...] region documented in this encounter Care Teams Asphalt Spreader Relationship Specialty Start Date End Date Blake Lindsey MD [address] [place] [address] PCP - General 05/20/16 documented as of this encounter
--- OUTSIDE RECORDS SUMMARY | 2024-07-29 17:51 | XMS_ITS | Encounter Summary ---
Author Organization [facility] Health Address [address] [facility] [place] [address] Care Team Providers Care Form Layer Name Role Phone Blake Lindsey MD Primary Care Provider [phone] Reason for Visit * Reason Onset Date Comments Referral 08/10/2018 Pain Management Encounter Details Date Type Department Care Team (Late Contact [facility]) Description 08/10/2018 Telephone [facility] [address] [place] [address] [place] [address] Dave Wadsworth, auto body mechanic apprentice (Pain Management) Social History Tobacco Use Types [...] Dave Wadsworth RN - 08/10/2018 11:31 AM INVESTIGATIVE RESEARCH SPECIALIST Lakeisha Alejandra was referred to [facility] for pain management services on 08/10/2018. STIGATIVE RESEARCH SPECIALIST documented in this encounter Plan of Treatment Not on file documented as of this encounter Visit Diagnoses Not on filedocumented in this encounter Care Teams Form Layer Relationship Specialty Start Date End Date Blake Lindsey MD [address] [place] [address] PCP - General 05/20/16 documented as of this encounter
--- OUTSIDE RECORDS SUMMARY | 2024-07-29 17:51 | XMS_ITS | Encounter Summary ---
Author Organization [facility] Health Address [address] [facility] [place] [address] Care Team Providers Care Manager Land Name Role Phone Blake Lindsey MD Primary Care Provider [phone] Encounter Details Date Type Department Care Team (Late st Contact Info) Description 10/20/2017 [facility] [address] [place] [address] [place] [address] Wai Lowry MD [address] [place] [address] [place] [address] Discharge Disposition: Home or Self [...] arthritis. Dictated by Roberto Carlos Valencia MD (radiology transporter). Dr. GREG Muller have personally reviewed and [...] arthritis. Dictated by Roberto Carlos Valencia MD (radiology transporter). Dr. GREG Muller have personally reviewed and interpreted thisexamination/study. This report was electronically signed by GREG MELCHOR on 10/20/201712:42 PM . Wai Lowry MD DIAGNOSTIC IMAGING O RDERABLES documented in this encounter Visit Diagnoses Diagnosis Unspecified disorder of synovium and tendon, left shoulder documented in this encounter Care Teams Manager Land Relationship Specialty Start Date End Date Blake Lindsey MD [address] [place] [address] PCP - General 05/20/16 documented as of this encounter
--- OUTSIDE RECORDS SUMMARY | 2024-07-29 17:51 | XMS_ITS | Encounter Summary ---
Author Organization [facility] Health Address [address] [facility] [place] [address] Care Team Providers Care Ground Water Technician Name Role Phone Blake Lindsey MD Primary Care Provider [phone] Encounter Details Date Type Department Care Team (Late st Contact Info) Description 06/06/2020 2:20 PM DRIVER'S LICENSE EXAMINER Video Visit [facility] Hematology and Oncology-[address] [address] Castillo Max MD [address] [place] [address] [place] [address] Hodgkin lymphoma, unspecified Hodgkin lymphoma type, [...] Anderson MD - 06/06/2020 10:29 PM CST [facility] Hematology/Oncology Clinic Date: 06/06/2020 Patient Name: Lakeisha Alejandra Date of : 1970 Airport Maintenance Chief/Oncologist: Castillo Max MD Primary Care Provider: Blake [...] - Will refer to ENT Dr. Jah cOhoa. The patient was seen and the plan was discussed with the Hematology and Oncology attending physician Dr. Castillo Max MD. Atilio Crabtree MD Hematology and Oncology Fellow [facility] [employer] I saw and [...] Max M.D. Director, Blood and Marrow Transplantation Weatherization Installer, Department of Internal Medicine [facility] ER'S LICENSE EXAMINER documented in this encounter Plan of Treatment Not on file documented as of this encounter Visit Diagnoses Diagnosis Hodgkin lymphoma, unspecified Hodgkin lymphoma type, unspecified body region (HCC)- Primary documented in this encounter Care Teams Ground Water Technician Relationship Specialty Start Date End Date Blake Lindsey MD [address] [place] [address] PCP - General 05/20/16 documented as of this encounter
--- OUTSIDE RECORDS SUMMARY | 2024-07-29 17:51 | XMS_ITS | Encounter Summary ---
Author Organization [facility] Health Address [address] [place] [address] Care Team Providers Care Metal Furniture Repairer Name Role Phone Blake Lindsey MD Primary Care Provider [phone] Encounter Details Date Type Department Care Team (Late st Contact Info) Description 11/10/2017 1:40 PM CDT Office Visit [facility] Physician Group - Orthopedics [address] [place] [address], [place] [address] Wai Lowry MD [address] [place] [address] OF ORTHOPEDIC SURGERY [place], [place] [id number] Pain in joint of left shoulder (Primary [...] significantly changes. *Please fill out the Press Faveryey survey that will be sent to you.* [facility] Orthopaedic office contact information: [facility] [address] [place] [address] [facility] [address] [place] [address], [place] [address] [facility] [address] [place] [address]. [address] [facility] [address] [place] [address], [place] [address], [place] [address] Please contact Fransico Kim (clinical nurse specialist) at or email: [email or web address] if you have any further questions or concerns. Sincerely, Wai Lowry MD [email or web address] 1. documented in this encounter Progress Notes * Wai Lowry MD - 11/10/2017 2:23 PM CDT Images from the original note were not included. Wai Lowry MD [facility] Orthopaedic Sports Medicine Adult and Pediatric Dear Dr. Blake Lindsey MD ; Today we had the pleasure of seeing Lakeisha Alejandra in [facility] Pediatric Orthopaedic Sports Medicine Clinic for re-evaluation [...] Medication Sig Dispense Refill ??? nystatin (MYCOSTATIN) 460710 UNIT/GM powder 0 ??? pregabalin (LYRICA) 75 [...] not done. There is no posterior apprehension. Kay's test is positive. Shoulder impingement test is [...] be reached at and by email at [email or web address]. Sincerely, Wai Lowry MD * Steven Gill RN - 11/10/2017 1:35 PM CDT Here [...] or extension. Dictated by Colin Nick MD (resident assistant cna). I, Dr. EMIL MALONE MD have personally [...] or extension. Dictated by Colin Nick MD (resident assistant cna). I, Dr. EMIL MALONE MD have personally reviewed and interpreted this examination/study. This report was electronically signed by EMIL MALONE MD on11/10/2017 4:46 PM . Umesh Brooks MD DIAGNOSTIC IMAGIN G ORDERABLES documented in this encounter Visit Diagnoses Diagnosis Pain in joint of left shoulder- Primary Pain in joint, shoulder region documented in this encounter Care Teams Metal Furniture Repairer Relationship Specialty Start Date End Date Blake Lindsey MD [address] [place] [address] PCP - General 05/20/16 documented as of this encounter
--- OUTSIDE RECORDS SUMMARY | 2024-07-29 17:51 | XMS_ITS | Encounter Summary ---
Author Organization [facility] Health Address [address] [place] [address] Care Team Providers Care Jumpbasting Canvas Baster Name Role Phone Blake Lindsey MD Primary Care Provider [phone] Encounter Details Date Type Department Care Team (Latest Contact Info) Description 07/16/2016 Hospital Outpatient Visit [facility] OUTPATIENT SERVICES [address] [place] [id number] Castillo Max MD [address] [place] [address] [address] [place] [id number] Discharge Disposition: Home or Self Care Social [...] on filedocumented in this encounter Care Teams Jumpbasting Canvas Baster Relationship Specialty Start Date End Date Blake Lindsey MD [address] [place] [address] PCP - General 05/20/16 documented as of this encounter
--- OUTSIDE RECORDS SUMMARY | 2024-07-29 17:51 | XMS_ITS | Encounter Summary ---
Author Organization [facility] Health Address [address] [facility] [place] [address] Care Team Providers Care Executive Officer Special Warfare Team Name Role Phone Blake Lindsey MD Primary Care Provider [phone] Encounter Details Date Type Department Care Team (Late st Contact Info) Description 06/06/2019 Orders Only [facility] - Orthopedics [address] [place] [address], [place] [address] Wia Lowry MD [address] [place] [address] OF ORTHOPEDIC SURGERY [place], [place] [phone] Primary osteoarthritis of left knee ; Chronic [...] region documented in this encounter Care Teams Executive Officer Special Warfare Team Relationship Specialty Start Date End Date Blake Lindsey MD [address] [place] [address] PCP - General 05/20/16 documented as of this encounter
--- OUTSIDE RECORDS SUMMARY | 2024-07-29 17:51 | XMS_ITS | Encounter Summary ---
Author Organization [facility] Health Address [address] [facility] [address] Care Team Providers Care Chief Quality Officer Name Role Phone Blake Lindsey MD Primary Care Provider [phone] Encounter Details Date Type Department Care Team (Latest Contact Info) Description 01/25/2019 11:03 AM CDT - 01/25/2019 11:59 PM CDT Hospital Encounter [facility] DIAGNOSTIC RAD [facility] [address] [facility] [facility] [place] [address] Corrina Peralta PA-C [address] [place] [address] Discharge Disposition: Home or Self [...] documented in this encounter Care Teams Chief Quality Officer Relationship Specialty Start Date End Date Blake Lindsey MD [address] [place] [address] PCP - General 05/20/16 documented as of this encounter
--- OUTSIDE RECORDS SUMMARY | 2024-07-29 17:52 | XMS_ITS | Encounter Summary ---
Author Organization [facility] Health Address [address] [facility] [place] [address] Care Team Providers Care Food Mobile Driver Name Role Phone Blake Lindsey MD Primary Care Provider [phone] Encounter Details Date Type Department Care Team (Latest Contact Info) Description 11/06/2014 [facility] [address] [facility] [place] [address] Reji Virk MD [address] [place], [place] [id number] Discharge Disposition: Home or Self Care Social [...] extending from the C5 level through the [id number]. Pedicle screws are seen at all levels [...] extending from the C5 level through the [id number]. Pedicle screws are seen at all levels [...] extending from the C5 level through the [id number]. Pedicle screws are seen at all levels [...] extending from the C5 level through the [id number]. Pedicle screws are seen at all levels [...] Cervicalgia documented in this encounter Care Teams Food Mobile Driver Relationship Specialty Start Date End Date Blake Lindsey MD [address] [place] [address] PCP - General 05/20/16 documented as of this encounter
--- OUTSIDE RECORDS SUMMARY | 2024-07-29 17:52 | XMS_ITS | Encounter Summary ---
Author Organization [facility] Health Address [address] [place] [address] Care Team Providers Care Malt Liquors Sales Supervisor Name Role Phone Blake Lindsey MD Primary Care Provider [phone] Encounter Details Date Type Department Care Team (Late st Contact Info) Description 05/06/2016 [facility] [address] [place] [address] Wai Lowry MD [address] [place] [address] [place] [address] Discharge Disposition: Home or Self [...] on filedocumented in this encounter Care Teams Malt Liquors Sales Supervisor Relationship Specialty Start Date End Date Blake Lindsey MD [address] [place] [address] PCP - General 05/20/16 documented as of this encounter
--- OUTSIDE RECORDS SUMMARY | 2024-07-29 17:52 | XMS_ITS | Encounter Summary ---
Author Organization [facility] Health Address [address] [place] [address] Care Team Providers Care Clock Mechanic Name Role Phone Blake Lindsey MD Primary Care Provider [phone] Encounter Details Date Type Department Care Team (Late st Contact Info) Description 03/07/2013 Hospital Outpatient Visit Historic [facility] [address] [place] [id number] Castillo Max MD [address] [place] [address] [address] [place] [address] Social History Tobacco Use Types [...] CDT) BUN 11 7 - 26 mg/dL [facility] Creatinine 0.6 0.6 - 1.2 mg/dL [facility] eGFR by MDRD > 60 ML/MIN [facility] Comment: Chronic kidney disease: ??<60 ml/min Kidney failure: ?<15 ml/min Based on BSA of 1.73m2. Sodium 143 136 - 145 mmol/L [facility] Potassium 3.4(L) 3.5 - 4.5 mmol/L [facility] Chloride 103 98 - 107 mmol/L [facility] CO2 22 22 - 29 mmol/L [facility] Glucose 122(H) 70 - 115 mg/dL [facility] Calcium 9.9 8.4 - 10.2 mg/dL [facility] Protein Total 5.6(L) 6.0 - 8.3 g/dL [facility] Albumin 3.4 3.4 - 5.0 g/dL [facility] Bilirubin Total 0.2 0.2 - 1.2 mg/dL [facility] Alkaline Phosphatase 57 40 - 150 Units/L [facility] ALT 12 0 - 55 Units/L [facility] AST 7 5 - 34 Units/L [facility] Anion Gap 21(H) 8 - 18 [facility] BUN/Creatinine Ratio 18 7 - 23 [facility] Osmolality Calculation 280 270 - 300 mOsm/kg [facility] Albumin/Globulin Ratio 1.5 1.1 - 2.3 [facility] 03/08/2013 10:0 1 AM CDT 03/08/2013 10:06 AM CDT Castillo Max MD LAB - CHEMISTRY OR DERABLES [facility] [address] [place] [address] documented in this encounter Visit Diagnoses Not on filedocumented in this encounter Care Teams Clock Mechanic Relationship Specialty Start Date End Date Blake Lindsey MD [address] [place] [address] PCP - General 05/20/16 documented as of this encounter
--- OUTSIDE RECORDS SUMMARY | 2024-07-29 17:52 | XMS_ITS | Encounter Summary ---
Author Organization [facility] Health Address [address] [facility] [place] [address] Care Team Providers Care Software Configuration Specialist Name Role Phone Blake Lindsey MD Primary Care Provider Encounter Details Date Type Department Care Team (Latest Contact Info) Description 05/24/2014 Hospital Outpatient Visit Historic [facility] PET [address] [place] [phone] Discharge Disposition: Home or Self Care Social [...] report was dictated by Trent Ryder MD (vice president of academic affairs) This report was approved ??by Trent Ryder [...] report was dictated by Trent Ryder MD (vice president of academic affairs) This report was approved by Trent Ryder M.D. on 05/24/2014 2:29 PM. I, Dr. MARHSAL PATEL D.O. have personally reviewed and interpreted thisexamination/study. This report was electronically signed by MARSHAL PATEL D.O. on05/24/2014 3:02 PM . Castillo Max MD NM ORDERABLES * GLUCOSE - POINT OF CARE (AMB) [facility] (05/24/2014 9:25 AM CDT) Glucose POCT 75 mg/dL [facility] Capillary blood specimen (specimen) 05/24/2014 9:25 AM CDT Jose Shin MD LAB - POINT OF CARE ORDERABLES [facility] * GLUCOSE - POINT OF CARE (AMB) [facility] (05/24/2014) Jose Shin MD LAB - POINT OF CARE ORDERABLES [facility] RADIOLOGY documented in this encounter Visit Diagnoses Diagnosis Hodgkin's disease (HCC) documented in this encounter Care Teams Software Configuration Specialist Relationship Specialty Start Date End Date Blake Lindsey MD [address] [place] [address] PCP - General 05/20/16 documented as of this encounter
--- OUTSIDE RECORDS SUMMARY | 2024-07-29 17:52 | XMS_ITS | Encounter Summary ---
Author Organization [facility] Health Address [address] [place] [address] Care Team Providers Care Director [facility] Name Role Phone Blake Lindsey MD Primary Care Provider [phone] Encounter Details Date Type Department Care Team (Latest Contact Info) Description 10/25/2015 Hospital Outpatient Visit Historic [facility] MAIN LAB [address] [place] [phone] Castillo Velásquez MD [address] [facility] [address] [place] [address] Discharge Disposition: Home or Self Care Social [...] CDT) Diphtheria Antitoxoid Antibody <0.10(L) <0.10 IU/mL [facility] (LYN) Comment: ? Interpretation: ? Non-Protective ?<0.10 ? Protective ? >=0.10 For research use only. Blood specimen (specimen) BLOOD SPECIMEN / Unknown 10/25/2015 9:19 AM CDT 10/25/2015 10:05 AM CDT Narrative [facility] (LYN) - 10/30/2015 1:16 PM CDT 0.5 mL serum red-top tube or gel-barrier tube, Refrigerate Performed at: ??01 - [facility] [address] ??[id number] Shading Painter: Kendrick Cardenas MD, Phone: ??[phone] Castillo Velásquez MD LAB - CHEMISTRY CHRISTOPHER DE LA GARZA Performing Organization Address [facility] Co de Phone Number [facility] DAVID (LYN) * TETANUS ANTIBODY (10/25/2015 9:19 AM CDT) Tetanus Antibody IgG 0.57 <0.10 IU/mL [facility] (LYN) Comment: ? Interpretation: ? Non-Protective ?<0.10 ? Protective ? >=0.10 Results for this test are for research purposes only by the assay's gluing pressman. ??The performance characteristics of this product have not been established. ??Results should not be used as a diagnostic procedure without confirmation of the diagnosis by another medically established diagnostic product or procedure. Blood specimen (specimen) BLOOD SPECIMEN / Unknown 10/25/2015 9:19 AM CDT 10/25/2015 10:05 AM CDT Narrative [facility] (LYN) - 10/29/2015 11:20 AM CDT 0.4 ml Serum, Red-top tube or gel-barrier tube, room temperature. Performed at: ??01 - [facility] [address] ??[id number] Shading Painter: Kendrick Cardenas MD, Phone: ??[phone] Castillo Velásquez MD LAB - CHEMISTRY CHRISTOPHER DE LA GARZA Performing Organization Address [facility] Co de Phone Number [facility] TRAY (LYN) * (ABNORMAL) COMPLEMENT TOTAL (10/25/2015 9:19 AM CDT) Complement Total CH50 >60(H) 42 - 60 U/mL [facility] (BEAKER) Blood specimen (specimen) BLOOD SPECIMEN / Unknown 10/25/2015 9:19 AM CDT 10/25/2015 10:05 AM CDT Narrative [facility] (BEAKER) - 10/28/2015 3:15 PM CDT 1 mL serum, red-top tube or gel barrier tube, Allow specimen to clot at room temperature for 15 to 30 minutes. Remove serum after centrifugation, and place in plastic transport tube. Transport frozen Performed at: ??01 - [facility] ??[id number] Shading Painter: Edison Chavez PhD, Phone: ??[phone] Castillo Velásquez MD LAB - CHEMISTRY CHRISTOPHER DE LA GARZA [facility] ([facility]) * STREP PNEUMO ANTIBODY IGG 23 SEROTYPES [...] age. Test developed and characteristics determined by [facility]. See Compliance Statement B: [employer] Blood specimen (specimen) BLOOD SPECIMEN / Unknown 10/25/2015 9:19 AM CDT 10/25/2015 10:05 AM CDT Narrative [facility] (LYN) - 10/27/2015 8:41 PM CDT SST , Separate serum from cells DEMETRIO/ within 2 hours of collection, Send to Lab before noon Castillo Velásquez MD LAB - CHEMISTRY CHRISTOPHER DE LA GARZA [facility] (LYN) * FLOW CYTOMETRY [employer] PANEL (10/25/2015 9:19 AM CDT) [facility] Flow Cytometry Specimen: Blood Reference:[id number] Reason for test: Markers: 9 Flow Cytometry [...] %CD19 & CD27+IgD- ? 7 %CD19 & WY68-IxO+ ? 98 Cell Region A: Lymphocytes Surface [...] ?0-1 ? IgD ? 3-15 CD16 ?0-23 ?[place] ? 3-12 CD19 ?8-24 ?Lambda ?3-7 CD20 ?7-17 ?HLA-DR ?9-25 CD23 ?2-16 ?TdT ? 0 Test performed at [facility], [address] [place] [address] ??[id number] This test was developed and its performance [...] perform high complexity clinical testing. By law [place], CD4 lymphocyte counts on patients with HIV infection must be reported by the physician to the [facility] authority. [facility] PATHOLOGY LAB (LYN) Blood specimen (specimen) BLOOD SPECIMEN / Unknown 10/25/2015 9:19 AM CDT 10/25/2015 10:05 AM CDT Castillo Velásquez MD LAB - PATHOLOGY/CYTO LOGY ORDERABLES [facility] PATHOLOGY LAB (BEAKER) * IGM BLOOD (10/25/2015 9:19 AM CDT) IgM 210 22 - 293 mg/dL [facility] Blood specimen (specimen) BLOOD SPECIMEN / Unknown 10/25/2015 9:19 AM CDT 10/25/2015 10:05 AM CDT Castillo Velásquez MD LAB - CHEMISTRY CHRISTOPHER DE LA GARZA [address] [phone] * IGG BLOOD (10/25/2015 9:19 AM CDT) IgG 794 540 - 1,822 mg/dL [facility] Blood specimen (specimen) BLOOD SPECIMEN / Unknown 10/25/2015 9:19 AM CDT 10/25/2015 10:05 AM CDT [facility] - 10/25/2015 10:40 AM CDT 1 mL serum, Red- top tube or gel barrier tube Castillo Velásquez MD LAB - CHEMISTRY CHRISTOPHER DE LA GARZA Performing Organization Address City/[facility]/ZIP Co de Phone Number [address] [phone] * IGA BLOOD (10/25/2015 9:19 AM CDT) IgA 204 87 - 534 mg/dL [facility] Blood specimen (specimen) BLOOD SPECIMEN / Unknown 10/25/2015 9:19 AM CDT 10/25/2015 10:05 AM CDT [facility] - 10/25/2015 10:40 AM CDT 1 mL serum, Red-top tube or gel barrier tube, Room temperture Castillo Velásquez MD LAB - CHEMISTRY CHRISTOPHER DE LA GARZA [facility] [address] [phone] * (ABNORMAL) CBC W AUTO DIFFERENTIAL (10/25/2015 9:19 AM CDT) WBC 6.9 3.5 - 10.5 10? 3 /uL [facility] RBC 4.44 3.90 - 5.00 10? 6 /uL [facility] Hemoglobin 14.6 12.0 - 15.5 g/dL [facility] Hematocrit 42.4 35.0 - 45.0 % [facility] MCV 95.5 81.0 - 97.0 fL [facility] MCH 32.9 28.0 - 34.0 pg [facility] MCHC 34.4 32.0 - 36.0 g/dL [facility] Platelet Count 156 150 - 400 10? 3 /uL [facility] RDW-SD 47.3 36.0 - 50.0 fL [facility] RDW-CV 13.6 11.2 - 14.8 % [facility] MPV 9.1(L) 9.3 - 12.8 fL [facility] Neutrophils % 63.0 35.0 - 70.0 % [facility] Lymphocytes % 27.6 19.7 - 55.1 % [facility] Monocytes % 6.5 3.0 - 15.0 % [facility] Eosinophils % 2.6 0.0 - 6.0 % [facility] Basophil % 0.3 0.0 - 1.5 % [facility] Neutrophils Absolute 4.3 1.6 - 7.0 10? 3 /uL [facility] Lymphocyte Absolute 1.9 0.8 - 2.9 10? 3 /uL [facility] Monocytes Absolute 0.45 0.14 - 0.66 10? 3 /uL [facility] Eosinophils Absolute 0.18 0.00 - 0.22 10? 3 /uL [facility] Basophils Absolute 0.02 0.00 - 0.06 10? 3 /uL [facility] Immature Granulocytes % 0.1 0.0 - 1.0 % [facility] Blood specimen (specimen) BLOOD SPECIMEN / Unknown 10/25/2015 9:19 AM CDT 10/25/2015 10:05 AM CDT Narrative [facility] - 10/25/2015 10:14 AM CDT Whole blood fill tube to capacity, Lavender- top tube, Room temperature Castillo Velásquez MD LAB - HEMATOLOGY MELISSA YADAV Performing Organization Address [facility] Co de Phone Number [facility] [address] [phone] * CBC W AUTO DIFFERENTIAL (10/25/2015 9:19 AM CDT) Blood specimen (specimen) BLOOD SPECIMEN / Unknown 10/25/2015 9:19 AM CDT [facility] - 10/25/2015 10:14 AM CDT Whole blood fill tube to capacity, Lavender- top tube, Room temperature The following orders were created for panel order CBC W/ DIFFERENTIAL - Order with [id number]. Procedure ? Abnormality ? Status ? --------- ? ------ ? CBC WITH DIFFERENTIAL[[id number]] ? Abnormal ?Final result ? Please view results for these tests on the individual orders. Castillo Velásquez MD LAB - HEMATOLOGY MELISSA YADAV Performing Organization Address [facility] Co de Phone Number [facility] [address] documented in this encounter Visit Diagnoses Diagnosis Infectious disease Unspecified infectious and parasitic diseases documented in this encounter Care Teams Director Multiple Sclerosis Center Relationship Specialty Start Date End Date Blake Lindsey MD [address] [place] [address] PCP - General 05/20/16 documented as of this encounter
--- OUTSIDE RECORDS SUMMARY | 2024-07-29 17:52 | XMS_ITS | Encounter Summary ---
Author Organization [facility] Health Address [address] [place] [address] Care Team Providers Care Counseling Program Leader Name Role Phone Blake Lindsey MD Primary Care Provider Encounter Details Date Type Department Care Team (Latest Contact Info) Description 06/17/2016 Hospital Outpatient Visit Historic [facility] DIAGNOSTIC RAD CSM [address] [place] [address] Discharge Disposition: Home or Self [...] 2 OR 3VW Routine 06/17/2016 12:46 PM TIE MILL OPERATOR XR THORACIC SPINE 2VW Routine 06/17/2016 12:45 PM TIE MILL OPERATOR documented in this encounter Results * XR CERVICAL SPINE 2 OR 3VW (06/17/2016 12:46 PM TIE MILL OPERATOR) Anatomical Region Laterality Modality Spine Other Impressions 06/17/2016 3:52 PM TIE MILL OPERATOR IMPRESSION: Unchanged posterior spinal fusion extending from C5 through T12. Unchanged T6 burst fracture. Dictated by Rachid Goel MD (radiology asst). This report was approved ??by Rachid Goel M.D. ?? on 06/17/2016 3:01 PM . I, Dr. KATHERINE MARX M.D. have personally reviewed and interpreted this examination/study. This report was electronically signed by KATHERINE MARX M.D. ??on 06/17/2016 3:52 PM . Narrative 06/17/2016 3:52 PM TIE MILL OPERATOR EXAMINATION: XR SPINE CERVICAL 2 OR 3 [...] burst fracture. Dictated by Rachid Goel MD (radiology asst). This report was approved by Rachid Goel M.D. on 06/17/2016 3:01PM . Dr. KATHERINE Muller M.D. have personally reviewed and interpreted thisexamination/study. This report was electronically signed by KATHERINE MARX M.D. on 06/17/20163:52 PM . Urban Guzman MD DIAGNOSTIC IMAGING O RDERABLES * XR THORACIC SPINE 2VW (06/17/2016 12:45 PM TIE MILL OPERATOR) Anatomical Region Laterality Modality Spine Other Impressions 06/17/2016 3:52 PM TIE MILL OPERATOR IMPRESSION: Unchanged posterior spinal fusion extending from C5 through T12. Unchanged T6 burst fracture. Dictated by Rachid Goel MD (radiology asst). This report was approved ??by Rachid Goel M.D. ?? on 06/17/2016 3:[address] KATHERINE Muller M.D. have personally reviewed and interpreted this examination/study. This report was electronically signed by KATHERINE MARX M.D. ??on 06/17/2016 3:52 PM . Narrative 06/17/2016 3:52 PM TIE MILL OPERATOR EXAMINATION: XR SPINE CERVICAL 2 OR 3 [...] burst fracture. Dictated by Rachid Goel MD (radiology asst). This report was approved by Rachid Goel M.D. on 06/17/2016 3:01PM . I, Dr. KATHERINE MARX M.D. have personally reviewed and interpreted thisexamination/study. This report was electronically signed by KATHERINE MARX M.D. on 06/17/20163:52 PM . Urban Guzman MD DIAGNOSTIC IMAGING O RDERABLES documented in this encounter Visit Diagnoses Diagnosis Encounter for follow-up examination after completed treatment for conditions other than malignant neoplasm documented in this encounter Care Teams Counseling Program Leader Relationship Specialty Start Date End Date Blake Lindsey MD [address] [place] [address] PCP - General 05/20/16 documented as of this encounter
--- OUTSIDE RECORDS SUMMARY | 2024-07-29 17:52 | XMS_ITS | Encounter Summary ---
Author Organization [facility] Health Address [address] [place] [address] Care Team Providers Care Playroom Attendant Name Role Phone Blake Lindsey MD Primary Care Provider [phone] Encounter Details Date Type Department Care Team (Latest Contact Info) Description 11/21/2014 Hospital Outpatient Visit Historic [facility] PET [address] [place] [phone] Discharge Disposition: Home or Self Care Social [...] MD LAB - POINT OF CARE ORDERABLES [facility] RADIOLOGY * GLUCOSE - POINT OF CARE (AMB) [facility] (11/21/2014 9:20 AM CDT) Glucose POCT 92 mg/dL [facility] Capillary blood specimen (specimen) 11/21/2014 9:20 AM CDT Jose Shin MD LAB - POINT OF CARE ORDERABLES [facility] documented in this encounter Visit Diagnoses Diagnosis Hodgkin's disease (HCC) documented in this encounter Care Teams Playroom Attendant Relationship Specialty Start Date End Date Blake Lindsey MD [address] [place] [address] PCP - General 05/20/16 documented as of this encounter
--- OUTSIDE RECORDS SUMMARY | 2024-07-29 17:52 | XMS_ITS | Encounter Summary ---
Author Organization [facility] Health Address [address] [place] [address] Care Team Providers Care Landscape Crew Leader Name Role Phone Blake Lindsey MD Primary Care Provider [phone] Encounter Details Date Type Department Care Team (Latest Contact Info) Description 02/05/2015 [facility] [address] [facility] [place] [address] Reji Virk MD [address] [place], [place] [id number] Discharge Disposition: Home or Self Care Social [...] unspecified documented in this encounter Care Teams Landscape Crew Leader Relationship Specialty Start Date End Date Blake Lindsey MD [address] [place] [address] PCP - General 05/20/16 documented as of this encounter
--- OUTSIDE RECORDS SUMMARY | 2024-07-29 17:52 | XMS_ITS | Encounter Summary ---
Author Organization [facility] Health Address [address] [facility] [place] [address] Care Team Providers Care Paper Supervisor Name Role Phone Blake Lindsey MD Primary Care Provider [phone] Encounter Details Date Type Department Care Team (Latest Contact Info) Description 05/31/2014 Hospital Outpatient Visit Historic [facility] LAB [address] [place] [phone] Castillo Max MD [address] [place] [address] [address] [place] [id number] Discharge Disposition: Home or Self Care Social [...] LDH Total 176 125 - 243 Units/L [facility] Blood specimen (specimen) BLOOD SPECIMEN / Unknown 05/31/2014 1:08 PM CDT 05/31/2014 1:44 PM CDT Castillo Max MD LAB - CHEMISTRY OR DERABLES Performing Organization Address City/State/[facility] Co de Phone Number [address] [phone] * (ABNORMAL) COMPREHENSIVE METABOLIC PANEL (05/31/2014 1:08 PM CDT) BUN 14 7 - 26 mg/dL [facility] Creatinine 0.8 0.6 - 1.2 mg/dL [facility] Sodium 143 136 - 145 mmol/L [facility] Potassium 3.8 3.5 - 4.5 mmol/L [facility] Chloride 109(H) 98 - 107 mmol/L [facility] CO2 24 22 - 29 mmol/L [facility] Glucose 105 70 - 115 mg/dL [facility] Calcium 9.3 8.4 - 10.2 mg/dL [facility] Protein Total 6.6 6.0 - 8.3 g/dL [facility] Albumin 3.7 3.4 - 5.0 g/dL [facility] Bilirubin Total 0.4 0.2 - 1.2 mg/dL [facility] Alkaline Phosphatase 102 40 - 150 Units/L [facility] ALT 12 0 - 55 Units/L [facility] AST 13 5 - 34 Units/L [facility] Anion Gap 14 8 - 18 [facility] BUN/Creatinine Ratio 18 7 - 23 [facility] Osmolality Calculated 282 270 - 300 mOsm/kg [facility] Albumin/Globulin Ratio 1.3 1.1 - 2.3 [facility] eGFR >60 >60 mL/min/1.7 3 m2 [facility] Blood specimen (specimen) BLOOD SPECIMEN / Unknown 05/31/2014 1:08 PM CDT 05/31/2014 1:44 PM CDT Castillo Max MD LAB - CHEMISTRY OR DERABLES Performing Organization Address City/State/[facility] Co de Phone Number [facility] [address] [phone] * (ABNORMAL) CBC W AUTO DIFFERENTIAL (05/31/2014 1:08 PM CDT) WBC 5.1 3.5 - 10.5 10? 3 /uL [facility] RBC 3.94 3.90 - 5.00 10? 6 /uL [facility] Hemoglobin 13.3 12.0 - 15.5 g/dL [facility] Hematocrit 38.7 35.0 - 45.0 % [facility] MCV 98.2(H) 81.0 - 97.0 fL [facility] MCH 33.8 28.0 - 34.0 pg [facility] MCHC 34.4 32.0 - 36.0 g/dL [facility] Platelet Count 114(L) 150 - 400 10? 3 /uL [facility] RDW-SD 46.7 36.0 - 50.0 fL [facility] RDW-CV 12.9 11.2 - 14.8 % [facility] MPV 8.7(L) 9.3 - 12.8 fL [facility] Neutrophils % 52.8 35.0 - 70.0 % [facility] Lymphocytes % 35.0 19.7 - 55.1 % [facility] Monocytes % 8.1 3.0 - 15.0 % [facility] Eosinophils % 3.5 0.0 - 6.0 % [facility] Basophil % 0.4 0.0 - 1.5 % [facility] Neutrophils Absolute 2.7 1.6 - 7.0 10? 3 /uL [facility] Lymphocyte Absolute 1.8 0.8 - 2.9 10? 3 /uL [facility] Monocytes Absolute 0.41 0.14 - 0.66 10? 3 /uL [facility] Eosinophils Absolute 0.18 0.00 - 0.22 10? 3 /uL [facility] Basophils Absolute 0.02 0.00 - 0.06 10? 3 /uL [facility] Immature Granulocytes % 0.2 0.0 - 1.0 % [facility] Blood specimen (specimen) BLOOD SPECIMEN / Unknown 05/31/2014 1:08 PM CDT 05/31/2014 1:11 PM CDT Castillo Max MD LAB - HEMATOLOGY O ROSSI Performing Organization Address [facility] Co de Phone Number [facility] [address] [phone] * CBC W AUTO DIFFERENTIAL (05/31/2014 1:08 PM CDT) Blood specimen (specimen) BLOOD SPECIMEN / Unknown 05/31/2014 1:08 PM CDT Narrative [facility] - 05/31/2014 1:13 PM CDT The following orders were created for panel order CBC with Differential. Procedure ? Abnormality ? Status ? --------- ? ------ ? CBC WITH DIFFERENTIAL[[id number]] ? Abnormal ?Final result ? Please view results for these tests on the individual orders. Castillo Max MD LAB - HEMATOLOGY O ROSSI Performing Organization Address [facility] Co de Phone Number [facility] [address] [place] [address], [facility] documented in this encounter Visit Diagnoses Diagnosis Hodgkin's disease (HCC) documented in this encounter Care Teams Paper Supervisor Relationship Specialty Start Date End Date Blake Lindsey MD [address] [place] [address] PCP - General 05/20/16 documented as of this encounter
--- OUTSIDE RECORDS SUMMARY | 2024-07-29 17:52 | XMS_ITS | Encounter Summary ---
Author Organization [facility] Health Address [address] [facility] [place] [address] Care Team Providers Care Digital Product Specialist Name Role Phone Blake Lindsey MD Primary Care Provider [phone] Encounter Details Date Type Department Care Team (Late st Contact Info) Description 06/01/2016 Hospital Outpatient Visit Historic [facility] Default Department Rachael Black MD [address] [address] Discharge Disposition: Home or Self Care Social [...] on filedocumented in this encounter Care Teams Digital Product Specialist Relationship Specialty Start Date End Date Blake Lindsey MD [address] [place] [address] PCP - General 05/20/16 documented as of this encounter
--- OUTSIDE RECORDS SUMMARY | 2024-07-29 17:52 | XMS_ITS | Encounter Summary ---
Author Organization [facility] Health Address [address] [place] [address] Care Team Providers Care Spanish Translator Name Role Phone Blake Lindsey MD Primary Care Provider [phone] Encounter Details Date Type Department Care Team (Latest Contact Info) Description 10/09/2013 Hospital Outpatient Visit Historic [facility] [address] [place] [address] Castillo Max MD [address] [place] [address] [address] [place] [address] Discharge Disposition: Home or Self Care Social [...] CDT) IgM 119 22 - 293 mg/dL [facility] 10/12/2013 1:26 PM CDT 10/12/2013 1:40 PM CDT Castillo Max MD LAB - CHEMISTRY OR DERABLES Performing Organization Address [facility] Co de Phone Number [address] [phone] * IGA BLOOD (10/12/2013 1:26 PM CDT) IgA 117 87 - 534 mg/dL [facility] 10/12/2013 1:26 PM CDT 10/12/2013 1:40 PM CDT Castillo Max MD LAB - CHEMISTRY OR DERABLES Performing Organization Address [facility] Co de Phone Number [address] [phone] documented in this encounter Visit Diagnoses Not on filedocumented in this encounter Care Teams Spanish Translator Relationship Specialty Start Date End Date Blake Lindsey MD [address] [place] [address] PCP - General 05/20/16 documented as of this encounter
--- OUTSIDE RECORDS SUMMARY | 2024-07-29 17:52 | XMS_ITS | Encounter Summary ---
Author Organization [facility] Health Address [address] [facility] [place] [address] Care Team Providers Care Psychology Lecturer Name Role Phone Blake Lindsey MD Primary Care Provider [phone] Encounter Details Date Type Department Care Team (Latest Contact Info) Description 10/10/2013 Hospital Outpatient Visit Historic [facility] [address] [place] [phone] Castillo Max MD [address] [place] [address] [address] [place] [address] Discharge Disposition: Home or Self Care Social [...] LAB - POINT OF CAR E ORDERABLES [facility] * GLUCOSE - POINT OF CARE (AMB) [facility] (10/10/2013) Glucose POCT 83 mg/dL [facility] Capillary blood specimen (specimen) 10/10/2013 Castillo Max MD LAB - POINT OF CAR E ORDERABLES Performing Organization Address City/[facility]/ZIP Co de Phone Number [facility] documented in this encounter Visit Diagnoses Diagnosis 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
--- OUTSIDE RECORDS SUMMARY | 2024-07-29 17:52 | XMS_ITS | Encounter Summary ---
Author Organization [facility] Health Address [address] [facility] [place] [address] Care Team Providers Care Production Troubleshooter Name Role Phone Blake Lindsey MD Primary Care Provider [phone] Encounter Details Date Type Department Care Team (Latest Contact Info) Description 03/03/2013 Hospital Outpatient Visit Historic [facility] [address] [place] [phone] Castillo Max MD [address] [place] [address] [address] [place] [phone] Discharge Disposition: Home or Self Care Social [...] CDT) Platelet 45(LL) 150 - 400 10^3/uL [facility] Comment: RESULT CONFIRMED BY REPEAT ANALYSIS, CALLED TO AND READ BACK BY ??AT 1303 ON 03/03/13. RESULT CONFIRMED BY REPEAT ANALYSIS, CALLED TO AND READ BACK BY [place]LA AT 1304 ON 03/03/13. Venous blood specimen (specimen) BLOOD SPECIMEN / Unknown 03/03/2013 12:45 PM CDT 03/03/2013 12:57 PM CDT Castillo Max MD LAB - HEMATOLOGY O RDERABLES [facility] [address] [place] [address] * PREPARE PLATELET PHERESIS UNIT(S) (03/03/2013 11:15 AM CDT) Pathologist [facility] Blood Product [id number] ? O+ ?[id number] ? TRANSFUSED ? 03/03/13 1130 ?? [facility] 03/03/2013 11:1 5 AM CDT 03/03/2013 11:15 AM CDT Castillo Max MD LAB - BLOOD BANK O RDERABLES [place] [address] [phone] documented in this encounter Visit Diagnoses Not on filedocumented in this encounter Care Teams Production Troubleshooter Relationship Specialty Start Date End Date Blake Lindsey MD [address] [place] [address] PCP - General 05/20/16 documented as of this encounter
--- OUTSIDE RECORDS SUMMARY | 2024-07-29 17:52 | XMS_ITS | Encounter Summary ---
Author Organization [facility] Health Address [address] [facility] [place] [address] Care Team Providers Care Supervising Bailiff Name Role Phone Blake Lindsey MD Primary Care Provider [phone] Encounter Details Date Type Department Care Team (Latest Contact Info) Description 07/23/2015 Hospital Outpatient Visit Historic [facility] [address] [place] [phone] Castillo Max MD [address] [place] [address] [address] [place] [id number] Discharge Disposition: Home or Self Care Social [...] W AUTO DIFFERENTIAL STAT 07/23/2015 11:03 AM RESIDENTIAL AIDE COMPREHENSIVE METABOLIC PANEL STAT 07/23/2015 11:03 AM RESIDENTIAL AIDE CBC W AUTO DIFFERENTIAL STAT 07/23/2015 11:03 AM RESIDENTIAL AIDE documented in this encounter Results * (ABNORMAL) COMPREHENSIVE METABOLIC PANEL (07/23/2015 11:03 AM RESIDENTIAL AIDE) BUN 11 7 - 26 mg/dL [facility] Creatinine 0.8 0.6 - 1.2 mg/dL [facility] Sodium 141 136 - 145 mmol/L [facility] Potassium 3.6 3.5 - 4.5 mmol/L [facility] Chloride 106 98 - 107 mmol/L [facility] CO2 24 22 - 29 mmol/L [facility] Glucose 142(H) 70 - 115 mg/dL [facility] Calcium 9.3 8.4 - 10.2 mg/dL [facility] Protein Total 7.0 6.0 - 8.3 g/dL [facility] Albumin 3.8 3.4 - 5.0 g/dL [facility] Bilirubin Total 0.6 0.2 - 1.2 mg/dL [facility] Alkaline Phosphatase 108 40 - 150 Units/L [facility] ALT 72(H) 0 - 55 Units/L [facility] AST 40(H) 5 - 34 Units/L [facility] Anion Gap 15 8 - 18 [facility] BUN/Creatinine Ratio 14 7 - 23 [facility] Osmolality Calculated 279 270 - 300 mOsm/kg [facility] Albumin/Globulin Ratio 1.2 1.1 - 2.3 [facility] eGFR >60 >60 mL/min/1.7 3 m2 [facility] Blood specimen (specimen) BLOOD SPECIMEN / Unknown 07/23/2015 11:03 AM RESIDENTIAL AIDE 07/23/2015 11:39 AM RESIDENTIAL AIDE Castillo Max MD LAB - CHEMISTRY OR DERABLES [address] [phone] * (ABNORMAL) CBC W AUTO DIFFERENTIAL (07/23/2015 11:03 AM RESIDENTIAL AIDE) Pathologist [facility] WBC 7.9 3.5 - 10.5 10? 3 /uL [facility] RBC 4.44 3.90 - 5.00 10? 6 /uL [facility] Hemoglobin 14.3 12.0 - 15.5 g/dL [facility] Hematocrit 41.6 35.0 - 45.0 % [facility] MCV 93.7 81.0 - 97.0 fL [facility] MCH 32.2 28.0 - 34.0 pg [facility] MCHC 34.4 32.0 - 36.0 g/dL [facility] Platelet Count 164 150 - 400 10? 3 /uL [facility] RDW-SD 47.7 36.0 - 50.0 fL [facility] RDW-CV 13.9 11.2 - 14.8 % [facility] MPV 8.9(L) 9.3 - 12.8 fL [facility] Neutrophils % 66.9 35.0 - 70.0 % [facility] Lymphocytes % 24.2 19.7 - 55.1 % [facility] Monocytes % 6.2 3.0 - 15.0 % [facility] Eosinophils % 2.4 0.0 - 6.0 % [facility] Basophil % 0.3 0.0 - 1.5 % [facility] Neutrophils Absolute 5.3 1.6 - 7.0 10? 3 /uL [facility] Lymphocyte Absolute 1.9 0.8 - 2.9 10? 3 /uL [facility] Monocytes Absolute 0.49 0.14 - 0.66 10? 3 /uL [facility] Eosinophils Absolute 0.19 0.00 - 0.22 10? 3 /uL [facility] Basophils Absolute 0.02 0.00 - 0.06 10? 3 /uL [facility] Immature Granulocytes % 0.3 0.0 - 1.0 % [facility] Blood specimen (specimen) BLOOD SPECIMEN / Unknown 07/23/2015 11:03 AM RESIDENTIAL AIDE 07/23/2015 11:39 AM RESIDENTIAL AIDE Castillo Max MD LAB - HEMATOLOGY O RDERABLES [facility] [address] [phone] * CBC W AUTO DIFFERENTIAL (07/23/2015 11:03 AM RESIDENTIAL AIDE) Blood specimen (specimen) BLOOD SPECIMEN / Unknown 07/23/2015 11:03 AM RESIDENTIAL AIDE Narrative [facility] - 07/23/2015 11:43 AM RESIDENTIAL AIDE The following orders were created for panel order CBC with Differential. Procedure ? Abnormality ? Status ? --------- ? ------ ? CBC WITH DIFFERENTIAL[[id number]] ? Abnormal ?Final result ? Please view results for these tests on the individual orders. Castillo Max MD LAB - HEMATOLOGY O RDERABLES Performing Organization Address City/State/[facility] Co de Phone Number [facility] [address] documented in this encounter Visit Diagnoses Diagnosis Hodgkin lymphoma (HCC) Hodgkin's disease, unspecified documented in this encounter Care Teams Supervising Bailiff Relationship Specialty Start Date End Date Blake Lindsey MD [address] [place] [address] PCP - General 05/20/16 documented as of this encounter
--- OUTSIDE RECORDS SUMMARY | 2024-07-29 17:52 | XMS_ITS | Encounter Summary ---
Author Organization [facility] Health Address [address] [facility] [place] [address] Care Team Providers Care Merchant Tailor Name Role Phone Blake Lindsey MD Primary Care Provider [phone] Encounter Details Date Type Department Care Team (Latest Contact Info) Description 11/06/2014 [facility] [address] [facility] [place] [address] Reji Virk MD [address] [place], [place] [phone] Discharge Disposition: Home or Self Care Social [...] on filedocumented in this encounter Care Teams Merchant Tailor Relationship Specialty Start Date End Date Blake Lindsey MD [address] [place] [address] PCP - General 05/20/16 documented as of this encounter
--- OUTSIDE RECORDS SUMMARY | 2024-07-29 17:52 | XMS_ITS | Encounter Summary ---
Author Organization [facility] Health Address [address] [facility] [place] [address] Care Team Providers Care Food Stand Manager Name Role Phone Blake Lindsey MD Primary Care Provider [phone] Encounter Details Date Type Department Care Team (Latest Contact Info) Description 05/24/2014 Hospital Outpatient Visit Historic [facility] [address] [place] [phone] Castillo Max MD [address] [place] [address] [address] [place] [phone] Discharge Disposition: Home or Self Care Social [...] on filedocumented in this encounter Care Teams Food Stand Manager Relationship Specialty Start Date End Date Blake Lindsey MD [address] [place] [address] PCP - General 05/20/16 documented as of this encounter
--- OUTSIDE RECORDS SUMMARY | 2024-07-29 17:52 | XMS_ITS | Encounter Summary ---
Author Organization [facility] Health Address [address] [facility] [place] [address] Care Team Providers Care Residency Coordinator Name Role Phone Blake Lindsey MD Primary Care Provider [phone] Encounter Details Date Type Department Care Team (Latest Contact Info) Description 10/10/2013 Hospital Outpatient Visit Historic [facility] [address] [place] [phone] Castillo Max MD [address] [place] [address] [address] [place] [phone] Discharge Disposition: Home or Self Care Social [...] on filedocumented in this encounter Care Teams Residency Coordinator Relationship Specialty Start Date End Date Blake Lindsey MD [address] [place] [address] PCP - General 05/20/16 documented as of this encounter
--- OUTSIDE RECORDS SUMMARY | 2024-07-29 17:52 | XMS_ITS | Encounter Summary ---
Author Organization [facility] Health Address [address] [facility] [place] [address] Care Team Providers Care Ball Holder Name Role Phone Blake Lindsey MD Primary Care Provider [phone] Encounter Details Date Type Department Care Team (Latest Contact Info) Description 01/25/2014 Hospital Outpatient Visit Historic [facility] [address] [place] [phone] Discharge Disposition: Home or Self Care Social [...] 9:26 AM CDT) Glucose POCT 86 mg/dL [facility] Capillary blood specimen (specimen) 01/25/2014 9:26 AM CDT Lorie Tim DO LAB - POINT OF CARE ORDERABLES [facility] * GLUCOSE - POINT OF CARE (AMB) [facility] (01/25/2014) Lorie Tim DO LAB - POINT OF CARE ORDERABLES [facility] documented in this encounter Visit Diagnoses Diagnosis Hodgkin's disease (HCC) Other secondary thrombocytopenia documented in this encounter Care Teams Ball Holder Relationship Specialty Start Date End Date Blake Lindsey MD [address] [place] [address] PCP - General 05/20/16 documented as of this encounter
--- OUTSIDE RECORDS SUMMARY | 2024-07-29 17:52 | XMS_ITS | Encounter Summary ---
Author Organization [facility] Health Address [address] [place] [address] Care Team Providers Care Glass Cleaning Machine Tender Name Role Phone Blake Lindsey MD Primary Care Provider [phone] Encounter Details Date Type Department Care Team (Late st Contact Info) Description 06/15/2014 Emergency Department Historic [facility] EM[facility]ENC[facility]PARTMENT [address] [place] [address] Lori Foley MD [facility] [facility] [place] [address] Discharge Disposition: Home or Self Care Social [...] Comments Blood Pressure 117/82 06/15/2014 2:30 PM LEHR ATTENDANT Pulse 78 06/15/2014 2:30 PM LEHR ATTENDANT Temperature 36.7 ??C (98 ??F) 06/15/2014 2:30 PM LEHR ATTENDANT Respiratory Rate 17 06/15/2014 2:30 PM LEHR ATTENDANT Oxygen Saturation 99% 06/15/2014 2:30 PM LEHR ATTENDANT Inhaled Oxygen Concentration - - Weight - [...] 11:19 PM Note Type: Consults Status: Signed Library Manager: Leonel Tanner MD (Resident) Cosigner: Reji Virk MD at 06/16/2014 10:27 AM [facility] Orthopaedic Spine Consult Lakeisha Alejandra 43 y.o. [...] office of Dr. Virk and Dr. Live ([facility]). Dr. Virk offered clinic visit early today, however patient was unable to make that due to limited access to car. Plan was made for follow up upcoming Wednesday. Shortly thereafter, patient received a phone call from [facility] instructing patient to come to ED to [...] General appearance: healthy, alert, no distress Neck: C-collar/[place] J: absent, well healed midline scar. Tenderness to palpation: present, centered over the sub-cutaneous just left of midline scar in the cervical region. ROM: diminished range of motion. No pain with rotation Back: Tenderness to palpation: absent, ROM: diminished range of motion due to fusion Step offs? No. Rectal/Perineal: not assesse Perianal/Perineal sensation is intact. Left Upper Extremity: Motor: 5/5 threat analyst, 5/5 small finger abduction, 4-/5 wrist extension, 4-/5 biceps, 4-/5 Triceps function. Sensory: intact to light touch. Ruiz's sign is negative. Right Upper Extremity: Motor: 5/5 threat analyst, 5/5 small finger abduction, 5/5 wrist extension, [...] ED Leonel Tanner MD 06/15/2014 8:04 PM ATTENDANT documented in this encounter Plan of Treatment Not on file documented as of this encounter Procedures Procedure Name Priority Date/Time Associated Diagnosis Comments CBC W AUTO DIFFERENTIAL STAT 06/15/2014 7:47 PM LEHR ATTENDANT PTT [facility] STAT 06/15/2014 7:30 PM LEHR ATTENDANT PT-INR [facility] STAT 06/15/2014 7:30 PM LEHR ATTENDANT C-REACTIVE PROTEIN Routine 06/15/2014 7: 30 PM LEHR ATTENDANT ERYTHROCYTE SEDIMENTATION RATE Routine 06/15/2014 7:30 PM LEHR ATTENDANT CBC W AUTO DIFFERENTIAL STAT 06/15/2014 7:30 PM LEHR ATTENDANT BASIC METABOLIC PANEL (CALCIUM TOTAL) STAT 06/15/2014 7:30 PM LEHR ATTENDANT documented in this encounter Results * CBC W AUTO DIFFERENTIAL (06/15/2014 7:47 PM LEHR ATTENDANT) Blood specimen (specimen) BLOOD SPECIMEN / Unknown 06/15/2014 7:47 PM LEHR ATTENDANT Narrative [facility] - 06/15/2014 7:47 PM LEHR ATTENDANT The following orders were created for panel order CBC w Differential. Procedure ? Abnormality ? Status ? --------- ? ------ ? CBC WITH DIFFERENTIAL[[id number]] ? Abnormal ?Final result ? Please view results for these tests on the individual orders. Lori Foley MD LAB - HEMATOLOGY ORD ERABLES Performing Organization Address [facility] Co de Phone Number [facility] [address] * ERYTHROCYTE SEDIMENTATION RATE (06/15/2014 7:30 PM LEHR ATTENDANT) [facility] Erythrocyte Sedimentation Rate [place]ester[place] 16 0 - 20 MM/HR [facility] Blood specimen (specimen) BLOOD SPECIMEN / Unknown 06/15/2014 7:30 PM LEHR ATTENDANT 06/15/2014 7:37 PM LEHR ATTENDANT Lori Foley MD LAB - HEMATOLOGY ORD ERABLES Performing Organization Address [facility] Co de Phone Number [facility] [address] [phone] * (ABNORMAL) BASIC METABOLIC PANEL (CALCIUM TOTAL) (06/15/2014 7:30 PM LEHR ATTENDANT) [facility] BUN 11 7 - 26 mg/dL [facility] Creatinine 0.7 0.6 - 1.2 mg/dL [facility] Sodium 143 136 - 145 mmol/L [facility] Potassium 3.6 3.5 - 4.5 mmol/L [facility] Chloride 110(H) 98 - 107 mmol/L [facility] CO2 24 22 - 29 mmol/L [facility] Glucose 128(H) 70 - 115 mg/dL [facility] Calcium 9.3 8.4 - 10.2 mg/dL [facility] Anion Gap 13 8 - 18 [facility] BUN/Creatinine Ratio 16 7 - 23 [facility] Osmolality Calculated 282 270 - 300 mOsm/kg [facility] eGFR >60 >60 mL/min/1.7 3 m2 [facility] Blood specimen (specimen) BLOOD SPECIMEN / Unknown 06/15/2014 7:30 PM LEHR ATTENDANT 06/15/2014 7:37 PM LEHR ATTENDANT Lori Foley MD LAB - CHEMISTRY [place] Performing Organization Address City/[facility]/ZIP Co de Phone Number [address] [phone] * (ABNORMAL) C-REACTIVE PROTEIN (06/15/2014 7:30 PM LEHR ATTENDANT) C-Reactive Protein 0.7(H) <=0.5 mg/dL [facility] Blood specimen (specimen) BLOOD SPECIMEN / Unknown 06/15/2014 7:30 PM LEHR ATTENDANT 06/15/2014 7:36 PM LEHR ATTENDANT Lori Foley MD LAB - CHEMISTRY [place] [address] [phone] * PTT [facility] (06/15/2014 7:30 PM LEHR ATTENDANT) APTT 36.2 23.0 - 38.4 Seconds [facility] Comment:Suggested therapeuti c range for full dose I.V. heparin therapy for venous thromboembolism is 66.0-91.0 seconds. Blood specimen (specimen) BLOOD SPECIMEN / Unknown 06/15/2014 7:30 PM LEHR ATTENDANT 06/15/2014 7:37 PM LEHR ATTENDANT Narrative [facility] - 06/15/2014 7:59 PM LEHR ATTENDANT Is patient on Heparin, Argatroban or Dabigatran?->N Lori Foley MD LAB - COAGULATION OR DERABLES Performing Organization Address [facility] Co de Phone Number [address] [phone] * PT-INR [facility] (06/15/2014 7:30 PM LEHR ATTENDANT) PT 14.1 12.1 - 14.8 Seconds [facility] INR 1.1 See Comment [facility] Comment: Suggested therapeutic range for low-intensity coumadin therapy for venous thromboembolism prophylaxis is an INR of 2.0-3.0. ??For high risk patients (Mitral Valve Prosthesis, Atrial Fibrillation, history of TIA/stroke), suggested prophylactic therapeutic range is an INR of 2.5-3.5. Blood specimen (specimen) BLOOD SPECIMEN / Unknown 06/15/2014 7:30 PM LEHR ATTENDANT 06/15/2014 7:37 PM LEHR ATTENDANT Narrative [facility] - 06/15/2014 7:59 PM LEHR ATTENDANT Is patient on Heparin, Argatroban or Dabigatran?->N Lori Foley MD LAB - COAGULATION OR DERABLES Performing Organization Address [facility] Co de Phone Number [address] [phone] * (ABNORMAL) CBC W AUTO DIFFERENTIAL (06/15/2014 7:30 PM LEHR ATTENDANT) WBC 6.7 3.5 - 10.5 10? 3 /uL [facility] RBC 3.90 3.90 - 5.00 10? 6 /uL [facility] Hemoglobin 13.0 12.0 - 15.5 g/dL [facility] Hematocrit 38.2 35.0 - 45.0 % [facility] MCV 97.9(H) 81.0 - 97.0 fL [facility] MCH 33.3 28.0 - 34.0 pg [facility] MCHC 34.0 32.0 - 36.0 g/dL [facility] Platelet Count 138(L) 150 - 400 10? 3 /uL [facility] RDW-SD 46.5 36.0 - 50.0 fL [facility] RDW-CV 12.9 11.2 - 14.8 % [facility] MPV 8.8(L) 9.3 - 12.8 fL [facility] nRBC Absolute 0.00 0 10? 3 /uL [facility] nRBC Auto 0.0 0 /100 WBC [facility] Neutrophils % 55.2 35.0 - 70.0 % [facility] Lymphocytes % 34.4 19.7 - 55.1 % [facility] Monocytes % 7.0 3.0 - 15.0 % [facility] Eosinophils % 3.0 0.0 - 6.0 % [facility] Basophil % 0.3 0.0 - 1.5 % [facility] Neutrophils Absolute 3.7 1.6 - 7.0 10? 3 /uL [facility] Lymphocyte Absolute 2.3 0.8 - 2.9 10? 3 /uL [facility] Monocytes Absolute 0.47 0.14 - 0.66 10? 3 /uL [facility] Eosinophils Absolute 0.20 0.00 - 0.22 10? 3 /uL [facility] Basophils Absolute 0.02 0.00 - 0.06 10? 3 /uL [facility] Immature Granulocytes % 0.1 0.0 - 1.0 % [facility] Blood specimen (specimen) BLOOD SPECIMEN / Unknown 06/15/2014 7:30 PM LEHR ATTENDANT 06/15/2014 7:37 PM LEHR ATTENDANT Lori Foley MD LAB - HEMATOLOGY ORD ERABLES [facility] [address] [phone] documented in this encounter Visit Diagnoses Diagnosis Cervicalgia documented in this encounter Care Teams Glass Cleaning Machine Tender Relationship Specialty Start Date End Date Blake Lindsey MD [address] [place] [address] PCP - General 05/20/16 documented as of this encounter
--- OUTSIDE RECORDS SUMMARY | 2024-07-29 17:52 | XMS_ITS | Encounter Summary ---
Author Organization [facility] Health Address [address] [place] [address] Care Team Providers Care Splunk Dashboard Developer Name Role Phone Blake Lindsey MD Primary Care Provider [phone] Encounter Details Date Type Department Care Team (Latest Contact Info) Description 07/17/2013 Hospital Outpatient Visit Historic [facility] OUTPATIENT SERVICES [address] [place] [phone] Castillo Max MD [address] [place] [address] [address] [place] [id number] Discharge Disposition: Home or Self Care Social [...] on filedocumented in this encounter Care Teams Splunk Dashboard Developer Relationship Specialty Start Date End Date Blake Lindsey MD [address] [place] [address] PCP - General 05/20/16 documented as of this encounter
--- OUTSIDE RECORDS SUMMARY | 2024-07-29 17:52 | XMS_ITS | Encounter Summary ---
Author Organization [facility] Health Address [address] [facility] [place] [address] Care Team Providers Care Test Tube Maker Name Role Phone Blake Lindsey MD Primary Care Provider Encounter Details Date Type Department Care Team (Late st Contact Info) Description 03/14/2013 Hospital Outpatient Visit Historic [facility] [address] [place] [address] Castillo Max MD [address] [place] [address] [address] [place] [address] Social History Tobacco Use Types Packs/Day Years [...] on filedocumented in this encounter Care Teams Test Tube Maker Relationship Specialty Start Date End Date Blake Lindsey MD [address] [place] [address] PCP - General 05/20/16 documented as of this encounter
--- OUTSIDE RECORDS SUMMARY | 2024-07-29 17:52 | XMS_ITS | Encounter Summary ---
Author Organization [facility] Health Address [address] [place] [address] Care Team Providers Care Medical Asst Name Role Phone Blake Lindsey MD Primary Care Provider [phone] Encounter Details Date Type Department Care Team (Latest Contact Info) Description 06/19/2014 [facility] [address] [facility] [place] [address] Reji Virk MD [address] [place], [place] [phone] Discharge Disposition: Home or Self Care Social [...] on filedocumented in this encounter Care Teams Medical Asst Relationship Specialty Start Date End Date Blake Lindsey MD [address] [place] [address] PCP - General 05/20/16 documented as of this encounter
--- OUTSIDE RECORDS SUMMARY | 2024-07-29 17:52 | XMS_ITS | Encounter Summary ---
Author Organization [facility] Health Address [address] [facility] [place] [address] Care Team Providers Care Medical Assistant Supervisor Name Role Phone Blake Lindsey MD Primary Care Provider [phone] Encounter Details Date Type Department Care Team (Late st Contact Info) Description 08/09/2014 Hospital Outpatient Visit Historic [facility] [address] [place] [address] Jessica Saunders, ROOFING TILE SORTER-AIR DISPATCHER [address] [facility] [place] [address] Discharge Disposition: Home or Self Care Social [...] CYTOMETRY RITUXAN BLOOD Routine 08/09/2014 1:01 PM SUPERVISOR PAPER MACHINE CBC W AUTO DIFFERENTIAL STAT 08/09/2014 1:01 PM SUPERVISOR PAPER MACHINE CBC W AUTO DIFFERENTIAL STAT 08/09/2014 1:01 PM SUPERVISOR PAPER MACHINE COMPREHENSIVE METABOLIC PANEL STAT 08/09/2014 1:01 PM SUPERVISOR PAPER MACHINE IGG BLOOD STAT 08/09/2014 1:01 PM SUPERVISOR PAPER MACHINE documented in this encounter Results * FLOW CYTOMETRY RITUXAN BLOOD PANEL (08/09/2014 1:01 PM SUPERVISOR PAPER MACHINE) [facility] Rituxan Panel Flow Cytometry Specimen: Blood Reference:[id number] Reason for test: Rituxan Panel Panel REquested [...] ?0-1 ? IgD ? 3-15 CD16 ?0-23 ?[place] ? 3-12 CD19 ?8-24 ?Lambda ?3-7 CD20 ?7-17 ?HLA-DR ?9-25 CD23 ?2-16 ?TdT ? 0 Test performed at [facility], [address] [facility] ??[id number] This test was developed and its performance [...] perform high complexity clinical testing. By law [place], CD4 lymphocyte counts on patients with HIV infection must be reported by the physician to the [facility] authority. Interpretation: Flow cytometric analysis of the [...] by Sisi Pichardo MD. Electronically signed 08/09/2014 [facility] PATHOLOGY LAB ([facility]) Blood specimen (specimen) 08/09/2014 1:01 PM SUPERVISOR PAPER MACHINE 08/09/2014 1:35 PM SUPERVISOR PAPER MACHINE Jessica Saunders ROOFING TILE SORTER-AIR DISPATCHER LAB - PATHOL OGY/CYTOLOGY ORDERABLES [facility] PATHOLOGY LAB ([facility]) * IGG BLOOD (08/09/2014 1:01 PM SUPERVISOR PAPER MACHINE) IgG 708 540 - 1,822 mg/dL [facility] Blood specimen (specimen) BLOOD SPECIMEN / Unknown 08/09/2014 1:01 PM SUPERVISOR PAPER MACHINE 08/09/2014 1:28 PM SUPERVISOR PAPER MACHINE Jessica Saunders ROOFING TILE SORTER-AIR DISPATCHER LAB - CHEMIS TRY ORDERABLES [address] [phone] * COMPREHENSIVE METABOLIC PANEL (08/09/2014 1:01 PM SUPERVISOR PAPER MACHINE) BUN 10 7 - 26 mg/dL [facility] Creatinine 0.7 0.6 - 1.2 mg/dL [facility] Sodium 141 136 - 145 mmol/L [facility] Potassium 3.7 3.5 - 4.5 mmol/L [facility] Chloride 104 98 - 107 mmol/L [facility] CO2 25 22 - 29 mmol/L [facility] Glucose 90 70 - 115 mg/dL [facility] Calcium 9.5 8.4 - 10.2 mg/dL [facility] Protein Total 6.8 6.0 - 8.3 g/dL [facility] Albumin 3.9 3.4 - 5.0 g/dL [facility] Bilirubin Total 0.5 0.2 - 1.2 mg/dL [facility] Alkaline Phosphatase 95 40 - 150 Units/L [facility] ALT 9 0 - 55 Units/L [facility] AST 11 5 - 34 Units/L [facility] Anion Gap 16 8 - 18 [facility] BUN/Creatinine Ratio 14 7 - 23 [facility] Osmolality Calculated 276 270 - 300 mOsm/kg [facility] Albumin/Globulin Ratio 1.3 1.1 - 2.3 [facility] eGFR >60 >60 mL/min/1.7 3 m2 [facility] Blood specimen (specimen) BLOOD SPECIMEN / Unknown 08/09/2014 1:01 PM SUPERVISOR PAPER MACHINE 08/09/2014 1:28 PM SUPERVISOR PAPER MACHINE Jessica Saunders ROOFING TILE SORTER-AIR DISPATCHER LAB - CHEMIS TRY ORDERABLES [address] [phone] * (ABNORMAL) CBC W AUTO DIFFERENTIAL (08/09/2014 1:01 PM SUPERVISOR PAPER MACHINE) WBC 4.6 3.5 - 10.5 10? 3 /uL [facility] RBC 4.17 3.90 - 5.00 10? 6 /uL [facility] Hemoglobin 13.6 12.0 - 15.5 g/dL [facility] Hematocrit 40.2 35.0 - 45.0 % [facility] MCV 96.4 81.0 - 97.0 fL [facility] MCH 32.6 28.0 - 34.0 pg [facility] MCHC 33.8 32.0 - 36.0 g/dL [facility] Platelet Count 126(L) 150 - 400 10? 3 /uL [facility] RDW-SD 45.1 36.0 - 50.0 fL [facility] RDW-CV 13.0 11.2 - 14.8 % [facility] MPV 8.7(L) 9.3 - 12.8 fL [facility] Neutrophils % 56.5 35.0 - 70.0 % [facility] Lymphocytes % 31.4 19.7 - 55.1 % [facility] Monocytes % 7.8 3.0 - 15.0 % [facility] Eosinophils % 3.9 0.0 - 6.0 % [facility] Basophil % 0.2 0.0 - 1.5 % [facility] Neutrophils Absolute 2.6 1.6 - 7.0 10? 3 /uL [facility] Lymphocyte Absolute 1.5 0.8 - 2.9 10? 3 /uL [facility] Monocytes Absolute 0.36 0.14 - 0.66 10? 3 /uL [facility] Eosinophils Absolute 0.18 0.00 - 0.22 10? 3 /uL [facility] Basophils Absolute 0.01 0.00 - 0.06 10? 3 /uL [facility] Immature Granulocytes % 0.2 0.0 - 1.0 % [facility] Blood specimen (specimen) BLOOD SPECIMEN / Unknown 08/09/2014 1:01 PM SUPERVISOR PAPER MACHINE 08/09/2014 1:04 PM SUPERVISOR PAPER MACHINE Jessica Saunders ROOFING TILE SORTER-AIR DISPATCHER LAB - HEMATO LOGY ORDERABLES [facility] [address] [place] [address] * CBC W AUTO DIFFERENTIAL (08/09/2014 1:01 PM SUPERVISOR PAPER MACHINE) Blood specimen (specimen) BLOOD SPECIMEN / Unknown 08/09/2014 1:01 PM SUPERVISOR PAPER MACHINE Narrative [facility] - 08/09/2014 1:07 PM SUPERVISOR PAPER MACHINE The following orders were created for panel order CBC with Differential. Procedure ? Abnormality ? Status ? --------- ? ------ ? CBC WITH DIFFERENTIAL[[id number]] ? Abnormal ?Final result ? Please view results for these tests on the individual orders. Jessica Saunders ROOFING TILE SORTER-AIR DISPATCHER LAB - HEMATO LOGY ORDERABLES Performing Organization Address [facility] Co de Phone Number [facility] [address] documented in this encounter Visit Diagnoses Diagnosis Hodgkin's disease (HCC) Fever due to unspecified condition documented in this encounter Care Teams Medical Assistant Supervisor Relationship Specialty Start Date End Date Blake Lindsey MD [address] [place] [address] PCP - General 05/20/16 documented as of this encounter
--- OUTSIDE RECORDS SUMMARY | 2024-07-29 17:52 | XMS_ITS | Encounter Summary ---
Author Organization [facility] Health Address [address] [facility] [place] [address] Care Team Providers Care Rvda Master Certified Rv Technician Name Role Phone Blake Lindsey MD Primary Care Provider [phone] Encounter Details Date Type Department Care Team (Latest Contact Info) Description 02/05/2015 [facility] [address] [facility] [place] [address] Reji Virk MD [address] [place], [place] [phone] Discharge Disposition: Home or Self Care Social [...] on filedocumented in this encounter Care Teams Rvda Master Certified Rv Technician Relationship Specialty Start Date End Date Blake Lindsey MD [address] [place] [address] PCP - General 05/20/16 documented as of this encounter
--- OUTSIDE RECORDS SUMMARY | 2024-07-29 17:52 | XMS_ITS | Encounter Summary ---
Author Organization [facility] Health Address [address] [place] [address] Care Team Providers Care Spring Coiling Machine Setter Name Role Phone Blake Lindsey MD Primary Care Provider [phone] Encounter Details Date Type Department Care Team (Latest Contact Info) Description 04/22/2013 Hospital Outpatient Visit Historic [facility] [address] [place] [address] Castillo Max MD [address] [place] [address] [address] [place] [address] Discharge Disposition: Home or Self [...] LDH Total 279(H) 125 - 243 Units/L [facility] 04/25/2013 3:20 PM CDT 04/25/2013 3:28 PM CDT Castillo Max MD LAB - CHEMISTRY OR DERABLES Performing Organization Address City/State/[facility] Co de Phone Number [facility] [address] [place] [address] documented in this encounter Visit Diagnoses Not on filedocumented in this encounter Care Teams Spring Coiling Machine Setter Relationship Specialty Start Date End Date Blake Lindsey MD [address] [place] [address] PCP - General 05/20/16 documented as of this encounter
--- OUTSIDE RECORDS SUMMARY | 2024-07-29 17:52 | XMS_ITS | Encounter Summary ---
Author Organization [facility] Health Address [address] [facility] [place] [address] Care Team Providers Care Financial Investigator Name Role Phone Blake Lindsey MD Primary Care Provider [phone] Encounter Details Date Type Department Care Team (Latest Contact Info) Description 02/19/2015 Hospital Outpatient Visit Historic [facility] DIAGNOSTIC RAD OP [address] [place] [phone] Discharge Disposition: Home or Self Care Social [...] or pneumonia. Dictated by Harjinder Leon M.D. (Rubber Goods Tester) This report was approved ??by Harjinder Leon [...] atelectasis orpneumonia. Dictated by Harjinder Leon M.D. (Rubber Goods Tester) This report was approved by Harjinder Leon [...] status documented in this encounter Care Teams Financial Investigator Relationship Specialty Start Date End Date Blake Lindsey MD [address] [place] [address] PCP - General 05/20/16 documented as of this encounter
--- OUTSIDE RECORDS SUMMARY | 2024-07-29 17:52 | XMS_ITS | Encounter Summary ---
Author Organization [facility] Health Address [address] [facility] [facility] [place] [address] Care Team Providers Care Dot Net Architect Name Role Phone Blake Lindsey MD Primary Care Provider [phone] Encounter Details Date Type Department Care Team (Late st Contact Info) Description 06/17/2016 [facility] - [facility]opedics [address] [place] [address] Urban Guzman MD [address] [place] [address] OF ORTHOPEDIC [place] [address] Discharge Disposition: Home or Self [...] on filedocumented in this encounter Care Teams Dot Net Architect Relationship Specialty Start Date End Date Blake Lindsey MD [address] [place] [address] PCP - General 05/20/16 documented as of this encounter
--- OUTSIDE RECORDS SUMMARY | 2024-07-29 17:52 | XMS_ITS | Encounter Summary ---
Author Organization [facility] Health Address [address] [facility] [place] [address] Care Team Providers Care Drum Drier Operator Name Role Phone Blake Lindsey MD Primary Care Provider [phone] Encounter Details Date Type Department Care Team (Late st Contact Info) Description 03/25/2015 Anesthesia Historic Visit [facility] OP [address] [place] [phone] Social History Tobacco Use Types Packs/Day Years [...] on filedocumented in this encounter Care Teams Drum Drier Operator Relationship Specialty Start Date End Date Blake Lindsey MD [address] [place] [address] PCP - General 05/20/16 documented as of this encounter
--- OUTSIDE RECORDS SUMMARY | 2024-07-29 17:52 | XMS_ITS | Encounter Summary ---
Author Organization [facility] Health Address [address] [facility] [place] [address] Care Team Providers Care Char Filter Tank Tender Head Name Role Phone Blake Lindsey MD Primary Care Provider [phone] Encounter Details Date Type Department Care Team (Late st Contact Info) Description 01/10/2016 Hospital Outpatient Visit Historic [facility] OUTPATIENT SERVICES [address] [place] [phone] Casimiro Loyola MD [address] [place] [address] Discharge Disposition: Home or Self [...] failure documented in this encounter Care Teams Char Filter Tank Tender Head Relationship Specialty Start Date End Date Blake Lindsey MD [address] [place] [address] PCP - General 05/20/16 documented as of this encounter
--- OUTSIDE RECORDS SUMMARY | 2024-07-29 17:52 | XMS_ITS | Encounter Summary ---
Author Organization [facility] Health Address [address] [facility] [place] [address] Care Team Providers Care Multi Purpose Machine Operator Name Role Phone Blake Lindsey MD Primary Care Provider [phone] Encounter Details Date Type Department Care Team (Latest Contact Info) Description 01/25/2014 Hospital Outpatient Visit Historic [facility] OUTPATIENT SERVICES [address] [place] [phone] Castillo Max MD [address] [place] [address] [address] [place] [phone] Discharge Disposition: Home or Self Care Social [...] on filedocumented in this encounter Care Teams Multi Purpose Machine Operator Relationship Specialty Start Date End Date Blake Lindsey MD [address] [place] [address] PCP - General 05/20/16 documented as of this encounter
--- OUTSIDE RECORDS SUMMARY | 2024-07-29 17:52 | XMS_ITS | Encounter Summary ---
Author Organization [facility] Health Address [address] [facility] [place] [address] Care Team Providers Care Territory Manager Name Role Phone Blake Lindsey MD Primary Care Provider [phone] Encounter Details Date Type Department Care Team (Late st Contact Info) Description 07/10/2015 Hospital Outpatient Visit Historic [facility] DIAGNOSTIC RAD CSM 1L [address] [facility] [place] [phone] Wai Lowry MD [address] [place] [address] [place] [address] Discharge Disposition: Home or Self Care Social [...] 4VW OR MORE Routine 07/10/2015 2:18 PM RODBUSTER documented in this encounter Results * XR KNEE RIGHT 4VW OR MORE (07/10/2015 2:18 PM RODBUSTER) Anatomical Region Laterality Modality Lower Extremity Other Impressions 07/10/2015 2:28 PM RODBUSTER Impression: Normal right and joint spaces. This report was electronically signed by ALICIA GREEN M.D. ??on 07/10/2015 2:28 PM . Narrative 07/10/2015 2:28 PM RODBUSTER Examination: Right knee minimum 4 views History: [...] GREEN M.D. on07/10/2015 2:28 PM . Wai Lorwy MD DIAGNOSTIC IMAGING O RDERABLES documented in this encounter Visit Diagnoses Diagnosis Pain in right knee Pain in joint, lower leg documented in this encounter Care Teams Territory Manager Relationship Specialty Start Date End Date Blake Lindsey MD [address] [place] [address] PCP - General 05/20/16 documented as of this encounter
--- OUTSIDE RECORDS SUMMARY | 2024-07-29 17:52 | XMS_ITS | Encounter Summary ---
Author Organization [facility] Health Address [address] [facility] [place] [address] Care Team Providers Care Pre Press Operator Name Role Phone Blake Lindsey MD Primary Care Provider [phone] Encounter Details Date Type Department Care Team (Latest Contact Info) Description 07/04/2013 Hospital Outpatient Visit Historic [facility] [address] [place] [address] Castillo Max MD [address] [place] [address] [address] [place] [address] Discharge Disposition: Home or Self Care Social [...] on filedocumented in this encounter Care Teams Pre Press Operator Relationship Specialty Start Date End Date Blake Lindsey MD [address] [place] [address] PCP - General 05/20/16 documented as of this encounter
--- OUTSIDE RECORDS SUMMARY | 2024-07-29 17:52 | XMS_ITS | Encounter Summary ---
Author Organization [facility] Health Address [address] [facility] [place] [address] Care Team Providers Care Quality Control Name Role Phone Blake Lindsey MD Primary Care Provider [phone] Encounter Details Date Type Department Care Team (Latest Contact Info) Description 11/29/2014 Hospital Outpatient Visit Historic [facility] [address] [place] [phone] Castillo Max MD [address] [place] [address] [address] [place] [id number] Discharge Disposition: Home or Self Care Social [...] RITUXAN BLOOD PANEL (11/29/2014 2:49 PM CDT) [facility] Rituxan Panel Flow Cytometry Specimen: Blood Reference:[id number] Reason for test: Rituxan Requested Markers: 7 [...] ?0-1 ? IgD ? 3-15 CD16 ?0-23 ?[place] ? 3-12 CD19 ?8-24 ?Lambda ?3-7 CD20 ?7-17 ?HLA-DR ?9-25 CD23 ?2-16 ?TdT ? 0 Test performed at [facility], [address] [facility], [place] ??[address] This test was developed and its performance [...] perform high complexity clinical testing. By law [place], CD4 lymphocyte counts on patients with HIV infection must be reported by the physician to the [facility] Health authority. Interpretation: Marker ?Absolute count (cells/ul) CD3 ? 1614 CD4 (CD4+CD3+) ?771 CD8 (CD8+CD3+) ?723 CD20 ?265 CD19 ?265 CD45 ?2409 CD56 ?145 This case has been personally reviewed and interpreted by the attending (teaching) pathologist. Final Diagnosis performed by Meera Douglas MD. Electronically signed 12/01/2014 [facility] Blood specimen (specimen) 11/29/2014 2:49 PM CDT 11/29/2014 3:13 PM CDT Castillo Max MD LAB - PATHOLOGY/CY TOLOGY ORDERABLES [facility] PATH[facility] (LYN) * IGG BLOOD (11/29/2014 2:49 PM CDT) Pathologist [facility] IgG 816 540 - 1,822 mg/dL [facility] Blood specimen (specimen) BLOOD SPECIMEN / Unknown 11/29/2014 2:49 PM CDT 11/29/2014 3:22 PM CDT Castillo Max MD LAB - CHEMISTRY OR DERABLES Performing Organization Address [facility] Co de Phone Number [address] [phone] * LAB MISC TEST (11/29/2014 2:30 PM CDT) [facility] Reference Lab Results SEE SCANNED REPORT [facility] REF LAB NON INTERF Other (qualifier value) 11/29/2014 2:30 PM CDT 11/29/2014 3:53 PM CDT Castillo Max MD LAB SEND OUT Performing Organization Address [facility] de Phone Number [facility] REF [facility] NON INTERF * INFLUENZA A+B PCR (11/29/2014 2:30 PM CDT) [facility] Influenza A Non subtyped Not Detected Not Detected [facility] Influenza B Not Detected Not Detected [facility] Respiratory Syncytial Virus Not Detected Not Detected [facility] RSV B Not Detected Not Detected [facility] Nasopharyngeal NASOPHARYNGEAL SWAB / Unknown 11/29/2014 2:30 PM CDT 11/29/2014 3:39 PM CDT Narrative [facility] - 11/29/2014 6:37 PM CDT Assay performed by Nucleic Acid Amplification. NOTE: ??Negative results for Influenza A, Influenza B or RSV do not preclude influenza virus or RSV infection and should not be used as the sole basis for diagnosis, treatment or patient management decisions. Castillo Max MD LAB - MICROBIOLOGY ORDERABLES Performing Organization Address [facility] Co de Phone Number [address] [phone] * INFLUENZA A+B ANTIGEN RAPID (11/29/2014 2:30 PM CDT) Pathologist [facility] Influenza A Rapid Test Negative Negative [facility] Influenza B Rapid Test Negative Negative [facility] Nasopharyngeal SPECIMEN FROM NASOPHARYNGEAL STRUCTURE / Unknown 11/29/2014 2:30 PM CDT 11/29/2014 3:11 PM CDT Narrative [facility] - 11/29/2014 3:39 PM CDT Specimen Type->Nasopharyngeal If clinical conditions warrant, molecular testing for Influenza offers superior sensitivity (>98%) and is available by ordering INFLUENZA/RSV GILLIAN [[id number]]. ??To add to current sample within [address] an electronic or signed manual requisition order and call the [facility] at [phone] with your request. ?? The positive and negative predictive values of rapid influenza testing vary considerably depending upon the prevalence on influenza in the community. *False-positive results are more likely to occur when disease prevalence is low. *False-negative results are more likely to occur when disease prevalence is high. *Current local influenza prevalence can be obtained by calling the Director of Microbiology at [phone]. Castillo Max MD LAB - MICROBIOLOGY ORDERABLES [facility] [address] [place] [address], [facility] [phone] * (ABNORMAL) VITAMIN D 25-HYDROXY (11/29/2014 12:54 PM CDT) Pathologist [facility] Vitamin D, 25 Hydroxy 21.5(L) >30.0 ng/mL [facility] Comment: The recommendations for 25-Hydroxy [...] CDT 11/29/2014 12:59 PM CDT Jessica Saunders SCREW EYE ASSEMBLER-VE TEACHER LAB - CHEMIS TRY ORDERABLES Performing Organization Address [facility] de Phone Number [address] [phone] * LDH BLOOD (11/29/2014 12:54 PM CDT) [facility] LDH Total 208 125 - 243 Units/L [facility] Blood specimen (specimen) BLOOD SPECIMEN / Unknown 11/29/2014 12:54 PM CDT 11/29/2014 12:59 PM CDT Jessica Saunders SCREW EYE ASSEMBLER-VE TEACHER LAB - CHEMIS TRY ORDERABLES Performing Organization Address [facility] de Phone Number [address] [phone] * (ABNORMAL) COMPREHENSIVE METABOLIC PANEL (11/29/2014 12:54 PM CDT) Pathologist [facility] BUN 13 7 - 26 mg/dL [facility] Creatinine 0.8 0.6 - 1.2 mg/dL [facility] Sodium 144 136 - 145 mmol/L [facility] Potassium 3.9 3.5 - 4.5 mmol/L [facility] Chloride 103 98 - 107 mmol/L [facility] CO2 26 22 - 29 mmol/L [facility] Glucose 106 70 - 115 mg/dL [facility] Calcium 9.8 8.4 - 10.2 mg/dL [facility] Protein Total 7.3 6.0 - 8.3 g/dL [facility] Albumin 3.9 3.4 - 5.0 g/dL [facility] Bilirubin Total 0.4 0.2 - 1.2 mg/dL [facility] Alkaline Phosphatase 98 40 - 150 Units/L [facility] ALT 31 0 - 55 Units/L [facility] AST 18 5 - 34 Units/L [facility] Anion Gap 19(H) 8 - 18 [facility] BUN/Creatinine Ratio 16 7 - 23 [facility] Osmolality Calculated 283 270 - 300 mOsm/kg [facility] Albumin/Globulin Ratio 1.1 1.1 - 2.3 [facility] eGFR >60 >60 mL/min/1.7 3 m2 [facility] Blood specimen (specimen) BLOOD SPECIMEN / Unknown 11/29/2014 12:54 PM CDT 11/29/2014 12:59 PM CDT Jessica Lauren Nicky SCREW EYE ASSEMBLER-VE TEACHER LAB - CHEMIS TRY ORDERABLES Performing Organization Address City/State/[facility] Co de Phone Number [address] [phone] * (ABNORMAL) CBC W AUTO DIFFERENTIAL (11/29/2014 12:54 PM CDT) WBC 7.3 3.5 - 10.5 10? 3 /uL [facility] RBC 4.24 3.90 - 5.00 10? 6 /uL [facility] Hemoglobin 14.2 12.0 - 15.5 g/dL [facility] Hematocrit 41.7 35.0 - 45.0 % [facility] MCV 98.3(H) 81.0 - 97.0 fL [facility] MCH 33.5 28.0 - 34.0 pg [facility] MCHC 34.1 32.0 - 36.0 g/dL [facility] Platelet Count 179 150 - 400 10? 3 /uL [facility] Comment:> 30 days RDW-SD 48.3 36.0 - 50.0 fL [facility] RDW-CV 13.5 11.2 - 14.8 % [facility] MPV 8.0(L) 9.3 - 12.8 fL [facility] Neutrophils % 51.8 35.0 - 70.0 % [facility] Lymphocytes % 35.7 19.7 - 55.1 % [facility] Monocytes % 6.6 3.0 - 15.0 % [facility] Eosinophils % 4.9 0.0 - 6.0 % [facility] Basophil % 0.3 0.0 - 1.5 % [facility] Neutrophils Absolute 3.8 1.6 - 7.0 10? 3 /uL [facility] Lymphocyte Absolute 2.6 0.8 - 2.9 10? 3 /uL [facility] Monocytes Absolute 0.48 0.14 - 0.66 10? 3 /uL [facility] Eosinophils Absolute 0.36(H) 0.00 - 0.22 10? 3 /uL [facility] Basophils Absolute 0.02 0.00 - 0.06 10? 3 /uL [facility] Immature Granulocytes % 0.7 0.0 - 1.0 % [facility] Blood specimen (specimen) BLOOD SPECIMEN / Unknown 11/29/2014 12:54 PM CDT 11/29/2014 12:54 PM CDT Jessica Saunders SCREW EYE ASSEMBLER-VE TEACHER LAB - HEMATO LOGY ORDERABLES Performing Organization Address [facility]/State/ZIP Co de Phone Number [facility] [address] [phone] * CBC W AUTO DIFFERENTIAL (11/29/2014 12:54 PM CDT) Blood specimen (specimen) BLOOD SPECIMEN / Unknown 11/29/2014 12:54 PM CDT Narrative [facility] - 11/29/2014 12:59 PM CDT The following orders were created for panel order CBC with Differential. Procedure ? Abnormality ? Status ? --------- ? ------ ? CBC WITH DIFFERENTIAL[[id number]] ? Abnormal ?Final result ? Please view results for these tests on the individual orders. Jessica Saunders SCREW EYE ASSEMBLER-VE TEACHER LAB - HEMATO LOGY ORDERABLES Performing Organization Address [facility] de Phone Number [place] [phone] [address] documented in this encounter Visit Diagnoses Diagnosis Hodgkin's disease (HCC) Vitamin D deficiency Fever due to unspecified condition documented in this encounter Care Teams Quality Control Relationship Specialty Start Date End Date Blake Lindsey MD [address] [place] [address] PCP - General 05/20/16 documented as of this encounter
--- OUTSIDE RECORDS SUMMARY | 2024-07-29 17:52 | XMS_ITS | Encounter Summary ---
Author Organization [facility] Health Address [address] [place] [address] Care Team Providers Care Wait Staff Name Role Phone Blake Lindsey MD Primary Care Provider [phone] Encounter Details Date Type Department Care Team (Latest Contact Info) Description 05/23/2015 Hospital Outpatient Visit Historic [facility] [address] [place] [phone] Castillo Max MD [address] [place] [address] [address] [place] [address] Discharge Disposition: Home or Self Care Social [...] on filedocumented in this encounter Care Teams Wait Staff Relationship Specialty Start Date End Date Blake Lindsey MD [address] [place] [address] PCP - General 05/20/16 documented as of this encounter
--- OUTSIDE RECORDS SUMMARY | 2024-07-29 17:52 | XMS_ITS | Encounter Summary ---
Author Organization [facility] Health Address [address] [facility] [place] [address] Care Team Providers Care Lead Trainer Name Role Phone Blake Lindsey MD Primary Care Provider [phone] Encounter Details Date Type Department Care Team (Latest Contact Info) Description 07/19/2013 [facility] [address] [facility], [facility] [place] [address] Reji Virk MD [address] [place], [place] [id number] Discharge Disposition: Home or Self Care Social [...] on filedocumented in this encounter Care Teams Lead Trainer Relationship Specialty Start Date End Date Blake Lindsey MD [address] [place] [address] PCP - General 05/20/16 documented as of this encounter
--- OUTSIDE RECORDS SUMMARY | 2024-07-29 17:52 | XMS_ITS | Encounter Summary ---
Author Organization [facility] Health Address [address] [facility] [place] [address] Care Team Providers Care Loin Trimmer Name Role Phone Blake Lindsey MD Primary Care Provider [phone] Encounter Details Date Type Department Care Team (Late st Contact Info) Description 07/16/2015 Hospital Outpatient Visit Historic [facility] [address] [place] [phone] Blake Lindsey MD [address] [place] [address] Discharge Disposition: Home or Self [...] on filedocumented in this encounter Care Teams Loin Trimmer Relationship Specialty Start Date End Date Blake Lindsey MD [address] [place] [address] PCP - General 05/20/16 documented as of this encounter
--- OUTSIDE RECORDS SUMMARY | 2024-07-29 17:52 | XMS_ITS | Encounter Summary ---
Author Organization [facility] Health Address [address] [place] [address] Care Team Providers Care Real Estate Branch Manager Name Role Phone Blake Lindsey MD Primary Care Provider [phone] Encounter Details Date Type Department Care Team (Latest Contact Info) Description 11/07/2013 [facility] [address] [facility], [facility] [place] [address] Reji Virk MD [address] [place], [place] [id number] Discharge Disposition: Home or Self Care Social [...] on filedocumented in this encounter Care Teams Real Estate Branch Manager Relationship Specialty Start Date End Date Blake Lindsey MD [address] [place] [address] PCP - General 05/20/16 documented as of this encounter
--- OUTSIDE RECORDS SUMMARY | 2024-07-29 17:52 | XMS_ITS | Encounter Summary ---
Author Organization [facility] Health Address [address] [facility] [place] [address] Care Team Providers Care Poultry Farm Supervisor Name Role Phone Blake Lindsey MD Primary Care Provider [phone] Encounter Details Date Type Department Care Team (Latest Contact Info) Description 11/05/2015 Hospital Outpatient Visit Historic [facility] [address] [place] [address] Reji Virk MD [address] [place], [place] [id number] Discharge Disposition: Home or Self Care Social [...] filedocumented in this encounter Care Teams Poultry Farm Supervisor Relationship Specialty Start Date End Date Blake Lindsye MD [address] [place] [address] PCP - General 05/20/16 documented as of this encounter
--- OUTSIDE RECORDS SUMMARY | 2024-07-29 17:52 | XMS_ITS | Encounter Summary ---
Author Organization [facility] Health Address [address] [facility] [place] [address] Care Team Providers Care Cupola Tapper Name Role Phone Blake Lindsey MD Primary Care Provider [phone] Encounter Details Date Type Department Care Team (Latest Contact Info) Description 11/07/2013 [facility] [address] [facility], [facility] [place] [address] Reji Virk MD [address] [place], [place] [id number] Discharge Disposition: Home or Self Care Social [...] unspecified documented in this encounter Care Teams Cupola Tapper Relationship Specialty Start Date End Date Blake Lindsey MD [address] [place] [address] PCP - General 05/20/16 documented as of this encounter
--- OUTSIDE RECORDS SUMMARY | 2024-07-29 17:52 | XMS_ITS | Encounter Summary ---
Author Organization [facility] Health Address [address] [place] [address] Care Team Providers Care Mechanic Welder Name Role Phone Blake Lindsey MD Primary Care Provider [phone] Encounter Details Date Type Department Care Team (Latest Contact Info) Description 10/24/2013 [facility] [address] [facility], [facility] [place] [address] Reji Virk MD [address] [place], [place] [phone] Discharge Disposition: Home or Self Care Social [...] on filedocumented in this encounter Care Teams Mechanic Welder Relationship Specialty Start Date End Date Blake Lindsey MD [address] [place] [address] PCP - General 05/20/16 documented as of this encounter
--- OUTSIDE RECORDS SUMMARY | 2024-07-29 17:52 | XMS_ITS | Encounter Summary ---
Author Organization [facility] Health Address [address] [facility] [place] [address] Care Team Providers Care Mems Engineer Name Role Phone Blake Lindsey MD Primary Care Provider [phone] Encounter Details Date Type Department Care Team (Latest Contact Info) Description 06/12/2014 Hospital Outpatient Visit Historic [facility] MRI [address] [place] [phone] Discharge Disposition: Home or Self Care Social [...] SPINE WWO CONT Routine 06/12/2014 8:44 AM WINE BOTTLE INSPECTOR documented in this encounter Results * MRI CERVICAL SPINE WWO CONT (06/12/2014 8:44 AM WINE BOTTLE INSPECTOR) Anatomical Region Laterality Modality Spine Other Impressions 06/12/2014 11:56 AM WINE BOTTLE INSPECTOR IMPRESSION: 1. Slightly increased size of the [...] 11:56 AM . Narrative 06/12/2014 11:56 AM WINE BOTTLE INSPECTOR EXAMINATION: Magnetic resonance imaging (MRI) of the [...] with palpable nodule in the region of [id number] status post chemotherapy which ended on 03/20/2013. [...] (HCC) documented in this encounter Care Teams Mems Engineer Relationship Specialty Start Date End Date Blake Lindsey MD [address] [place] [address] PCP - General 05/20/16 documented as of this encounter
--- OUTSIDE RECORDS SUMMARY | 2024-07-29 17:52 | XMS_ITS | Encounter Summary ---
Author Organization [facility] Health Address [address] [place] [address] Care Team Providers Care Warhead Maintenance Specialist Name Role Phone Blake Lindsey MD Primary Care Provider [phone] Encounter Details Date Type Department Care Team (Latest Contact Info) Description 04/24/2013 Hospital Outpatient Visit Historic [facility] OUT[facility] [address] [place] [phone] Castillo Max MD [address] [place] [address] [address] [place] [phone] Discharge Disposition: Home or Self Care Social [...] on filedocumented in this encounter Care Teams Warhead Maintenance Specialist Relationship Specialty Start Date End Date Blake Lindsey MD [address] [place] [address] PCP - General 05/20/16 documented as of this encounter
--- OUTSIDE RECORDS SUMMARY | 2024-07-29 17:52 | XMS_ITS | Encounter Summary ---
Author Organization [facility] Health Address [address] [facility] [place] [address] Care Team Providers Care Coal Hauler Name Role Phone Blake Lindsey MD Primary Care Provider [phone] Encounter Details Date Type Department Care Team (Late st Contact Info) Description 03/28/2013 Hospital Outpatient Visit Historic [facility] [address] [place] [address] Castillo Max MD [address] [place] [address] [address] [place] [address] Social History Tobacco Use Types [...] LDH Total 350(H) 125 - 243 Units/L [facility] 04/11/2013 9:08 AM CDT 04/11/2013 9:54 AM CDT Castillo Max MD LAB - CHEMISTRY OR DERABLES Performing Organization Address City/State/[facility] Co de Phone Number [facility] [address] [phone] documented in this encounter Visit Diagnoses Not on filedocumented in this encounter Care Teams Coal Hauler Relationship Specialty Start Date End Date Blake Lindsey MD [address] [place] [address] PCP - General 05/20/16 documented as of this encounter
--- OUTSIDE RECORDS SUMMARY | 2024-07-29 17:52 | XMS_ITS | Encounter Summary ---
Author Organization [facility] Health Address [address] [facility] [place] [address] Care Team Providers Care Extension Specialist Name Role Phone Blake Lindsey MD Primary Care Provider [phone] Encounter Details Date Type Department Care Team (Late st Contact Info) Description 11/06/2015 [facility] - Orthopedics [address] [place] [address] Wai Lowry MD [address] [place] [address] OF ORTHOPEDIC SURGERY [place], [place] [phone] Discharge Disposition: Home or Self Care Social [...] region documented in this encounter Care Teams Extension Specialist Relationship Specialty Start Date End Date Blake Lindsey MD [address] [place] [address] PCP - General 05/20/16 documented as of this encounter
--- OUTSIDE RECORDS SUMMARY | 2024-07-29 17:52 | XMS_ITS | Encounter Summary ---
Author Organization [facility] Health Address [address] [facility] [place] [address] Care Team Providers Care Production Operations Engineer Name Role Phone Blake Lindsey MD Primary Care Provider [phone] Encounter Details Date Type Department Care Team (Latest Contact Info) Description 06/12/2014 Hospital Outpatient Visit Historic [facility] OUTPAT[facility] [address] [place] [phone] Castillo Max MD [address] [place] [address] [address] [place] [phone] Discharge Disposition: Home or Self Care Social [...] filedocumented in this encounter Care Teams Production Operations Engineer Relationship Specialty Start Date End Date Blake Lindsey MD [address] [place] [address] PCP - General 05/20/16 documented as of this encounter
--- OUTSIDE RECORDS SUMMARY | 2024-07-29 17:52 | XMS_ITS | Encounter Summary ---
Author Organization [facility] Health Address [address] [facility] [place] [address] Care Team Providers Care Director Biologics Name Role Phone Blake Lindsey MD Primary Care Provider [phone] Encounter Details Date Type Department Care Team (Latest Contact Info) Description 04/10/2015 [facility] [address] [facility], [facility] [place] [address] Reji Virk MD [address] [place], [place] [phone] Discharge Disposition: Home or Self Care Social [...] filedocumented in this encounter Care Teams Director Biologics Relationship Specialty Start Date End Date Blake Lindsey MD [address] [place] [address] PCP - General 05/20/16 documented as of this encounter
--- OUTSIDE RECORDS SUMMARY | 2024-07-29 17:52 | XMS_ITS | Encounter Summary ---
Author Organization [facility] Health Address [address] [place] [address] Care Team Providers Care Section Forest Fire Warden Name Role Phone Blake Lindsey MD Primary Care Provider [phone] Encounter Details Date Type Department Care Team (Latest Contact Info) Description 04/24/2013 Hospital Outpatient Visit Historic [facility] PET [address] [place] [phone] Discharge Disposition: Home or Self Care Social [...] CARE (AMB) [facility] Routine 08/02/1998 12:00 AM ADMINISTRATIVE MEDICAL DIRECTOR documented in this encounter Results * PET [...] electronically signed by MARSHAL NOEL D.O. on 9/23/42344:46 PM . Castillo Max MD NM ORDERABLES * GLUCOSE - POINT OF CARE (AMB) [facility] (04/24/2013) Marshal Dumont DO LAB - POINT OF CARE ORDERABLES Performing Organization Address City/[facility] Co de Phone Number [facility] RADIOLOGY * GLUCOSE - POINT OF CARE (AMB) [facility] (08/02/1998 12:00 AM ADMINISTRATIVE MEDICAL DIRECTOR) Glucose POCT 80 mg/dL [facility] Capillary blood specimen (specimen) 08/02/1998 Marshal Dumont DO LAB - POINT OF CARE ORDERABLES Performing Organization Address City/[facility] Co de Phone Number [facility] documented in this encounter Visit Diagnoses Diagnosis Hodgkin's disease (HCC) Other secondary thrombocytopenia Neutropenia (HCC) documented in this encounter Care Teams Section Forest Fire Warden Relationship Specialty Start Date End Date Blake Lindsey MD [address] [place] [address] PCP - General 05/20/16 documented as of this encounter
--- OUTSIDE RECORDS SUMMARY | 2024-07-29 17:52 | XMS_ITS | Encounter Summary ---
Author Organization [facility] Health Address [address] [facility] [place] [address] Care Team Providers Care Transmission Rebuilder Name Role Phone Blake Lindsey MD Primary Care Provider [phone] Encounter Details Date Type Department Care Team (Latest Contact Info) Description 02/08/2014 Hospital Outpatient Visit Historic [facility] MAIN LAB [address] [place] [phone] Castillo Max MD [address] [place] [address] [address] [place] [id number] Discharge Disposition: Home or Self Care Social [...] LDH Total 162 125 - 243 Units/L [facility] Blood specimen (specimen) BLOOD SPECIMEN / Unknown 02/08/2014 12:52 PM CDT 02/08/2014 1:01 PM CDT Castillo Max MD LAB - CHEMISTRY OR DERABLES Performing Organization Address City/State/[facility] Co de Phone Number [address] [phone] * (ABNORMAL) COMPREHENSIVE METABOLIC PANEL (02/08/2014 12:52 PM CDT) BUN 9 7 - 26 mg/dL [facility] Anion Gap 16 8 - 18 [facility] BUN/Creatinine Ratio 13 7 - 23 [facility] Osmolality Calculated 281 270 - 300 mOsm/kg [facility] Albumin/Globulin Ratio 1.3 1.1 - 2.3 [facility] Creatinine 0.7 0.6 - 1.2 mg/dL [facility] Sodium 144 136 - 145 mmol/L [facility] Potassium 3.9 3.5 - 4.5 mmol/L [facility] Chloride 108(H) 98 - 107 mmol/L [facility] CO2 24 22 - 29 mmol/L [facility] Glucose 94 70 - 115 mg/dL [facility] Calcium 9.8 8.4 - 10.2 mg/dL [facility] Protein Total 7.2 6.0 - 8.3 g/dL [facility] Albumin 4.1 3.4 - 5.0 g/dL [facility] Bilirubin Total 0.5 0.2 - 1.2 mg/dL [facility] Alkaline Phosphatase 102 40 - 150 Units/L [facility] ALT 11 0 - 55 Units/L [facility] AST 11 5 - 34 Units/L [facility] eGFR >60 >60 mL/min/1.7 3 m2 [facility] Blood specimen (specimen) BLOOD SPECIMEN / Unknown 02/08/2014 12:52 PM CDT 02/08/2014 1:01 PM CDT Castillo Max MD LAB - CHEMISTRY OR DERABLES Performing Organization Address City/State/[facility] Co de Phone Number [facility] [address] [phone] * (ABNORMAL) CBC W AUTO DIFFERENTIAL (02/08/2014 12:52 PM CDT) WBC 4.7 3.5 - 10.5 10? 3 /uL [facility] RBC 4.06 3.90 - 5.00 10? 6 /uL [facility] Hemoglobin 13.4 12.0 - 15.5 g/dL [facility] Hematocrit 38.9 35.0 - 45.0 % [facility] MCV 95.8 81.0 - 97.0 fL [facility] MCH 33.0 28.0 - 34.0 pg [facility] MCHC 34.4 32.0 - 36.0 g/dL [facility] Platelet Count 123(L) 150 - 400 10? 3 /uL [facility] RDW-SD 43.8 36.0 - 50.0 fL [facility] RDW-CV 12.7 11.2 - 14.8 % [facility] MPV 8.9(L) 9.3 - 12.8 fL [facility] Neutrophils % 63.6 35.0 - 70.0 % [facility] Lymphocytes % 24.2 19.7 - 55.1 % [facility] Monocytes % 9.3 3.0 - 15.0 % [facility] Eosinophils % 2.5 0.0 - 6.0 % [facility] Basophil % 0.2 0.0 - 1.5 % [facility] Neutrophils Absolute 3.0 1.6 - 7.0 10? 3 /uL [facility] Lymphocyte Absolute 1.1 0.8 - 2.9 10? 3 /uL [facility] Monocytes Absolute 0.44 0.14 - 0.66 10? 3 /uL [facility] Eosinophils Absolute 0.12 0.00 - 0.22 10? 3 /uL [facility] Basophils Absolute 0.01 0.00 - 0.06 10? 3 /uL [facility] Immature Granulocytes % 0.2 0.0 - 1.0 % [facility] Blood specimen (specimen) BLOOD SPECIMEN / Unknown 02/08/2014 12:52 PM CDT 02/08/2014 12:53 PM CDT Castillo Max MD LAB - HEMATOLOGY O ROSSI Performing Organization Address [facility] de Phone Number [facility] [address] [phone] * CBC W AUTO DIFFERENTIAL (02/08/2014 12:52 PM CDT) Blood specimen (specimen) BLOOD SPECIMEN / Unknown 02/08/2014 12:52 PM CDT Narrative [facility] - 02/08/2014 1:00 PM CDT The following orders were created for panel order CBC with Differential. Procedure ? Abnormality ? Status ? --------- ? ------ ? CBC WITH DIFFERENTIAL[[id number]] ? Abnormal ?Final result ? Please view results for these tests on the individual orders. Castillo Max MD LAB - HEMATOLOGY O ROSSI Performing Organization Address [facility] de Phone Number [facility] [address] [place] [address], [facility] documented in this encounter Visit Diagnoses Diagnosis Hodgkin's disease (HCC) Thrombocytopenia (HCC) Thrombocytopenia, unspecified documented in this encounter Care Teams Transmission Rebuilder Relationship Specialty Start Date End Date Blake Lindsey MD [address] [place] [address] PCP - General 05/20/16 documented as of this encounter
--- OUTSIDE RECORDS SUMMARY | 2024-07-29 17:52 | XMS_ITS | Encounter Summary ---
Author Organization [facility] Health Address [address] [facility] [place] [address] Care Team Providers Care Architectural Intern Name Role Phone Blake Lindsey MD Primary Care Provider [phone] Encounter Details Date Type Department Care Team (Late st Contact Info) Description 05/20/2016 [facility] - Orthopedics [address] [place] [address] Wai Lowry MD [address] [place] [address] [place] [address] Discharge Disposition: Home or Self [...] on filedocumented in this encounter Care Teams Architectural Intern Relationship Specialty Start Date End Date Blake Lindsey MD [address] [place] [address] PCP - General 05/20/16 documented as of this encounter
--- OUTSIDE RECORDS SUMMARY | 2024-07-29 17:52 | XMS_ITS | Encounter Summary ---
Author Organization [facility] Health Address [address] [facility] [place] [address] Care Team Providers Care It Help Desk Analyst Name Role Phone Blake Lindsey MD Primary Care Provider Encounter Details Date Type Department Care Team (Latest Contact Info) Description 05/08/2015 [facility] - Orthopedics [address] [facility], [facility] [place] [address] Reji Virk MD [address] [place], [place] [id number] Discharge Disposition: Home or Self Care Social [...] fracture. Dictated by Héctor Kemp MD (residential interior designer). This report was approved ??by Héctor Kemp [...] fracture. Dictated by Héctor Kemp MD (residential interior designer). This report was approved by Héctor Kemp on 05/08/2015 1:50 PM . I, Dr. ALICIA GREEN M.D. have personally reviewed and interpreted thisexamination/study. This report was electronically signed by ALICIA GREEN M.D. on05/08/2015 3:32 PM . Reji Virk MD DIAGNOSTIC IMAGING O RDERABLES documented in this encounter Visit Diagnoses Diagnosis Arthrodesis status documented in this encounter Care Teams It Help Desk Analyst Relationship Specialty Start Date End Date Blake Lindsey MD [address] [place] [address] PCP - General 05/20/16 documented as of this encounter
--- OUTSIDE RECORDS SUMMARY | 2024-07-29 17:52 | XMS_ITS | Encounter Summary ---
Author Organization [facility] Health Address [address] [place] [address] Care Team Providers Care Magento Web Developer Name Role Phone Blake Lindsye MD Primary Care Provider [phone] Encounter Details Date Type Department Care Team (Latest Contact Info) Description 11/05/2015 Hospital Outpatient Visit [facility] MRI OP [address] [place] [address] Discharge Disposition: Home or Self [...] region documented in this encounter Care Teams Magento Web Developer Relationship Specialty Start Date End Date Blake Lindsey MD [address] [place] [address] PCP - General 05/20/16 documented as of this encounter
--- OUTSIDE RECORDS SUMMARY | 2024-07-29 17:52 | XMS_ITS | Encounter Summary ---
Author Organization [facility] Health Address [address] [facility] [place] [address] [address] Team Prov[address] Care [address] Attendant Name Role Phone Blake Lindsey MD Primary Care Provider [phone] Encounter Details Date Type Department Care Team (Latest Contact Info) Description 12/09/2015 Hospital Outpatient Visit Historic [facility] MAIN LAB [address] [place] [phone] Castillo Velásquez MD [address] [facility] 2L DIV [place] [address] Discharge Disposition: Home or Self Care Social [...] 2015;22(2):148-152. Test developed and characteristics determined by [email or web address]. See Compliance Statement B: [email or web address] 12/09/2015 3:14 PM CDT 12/09/2015 3:24 PM CDT Castillo Velásquez MD LAB - CHEMISTRY [facility] Organization Address City/State/ZIP Co de Phone Number [facility] documented in this encounter Visit Diagnoses Not on filedocumented in this encounter Care Teams Lane Attendant Relationship Specialty Start Date End Date Blake Lindsey MD [address] [place] [address] PCP - General 05/20/16 documented as of this encounter
--- OUTSIDE RECORDS SUMMARY | 2024-07-29 17:52 | XMS_ITS | Encounter Summary ---
Author Organization [facility] Health Address [address] [facility] [place] [address] Care Team Providers Care City Administrator Name Role Phone Blake Lindsey MD Primary Care Provider [phone] Encounter Details Date Type Department Care Team (Latest Contact Info) Description 06/26/2013 Hospital Outpatient Visit Historic [facility] [address] [place] [phone] Castillo Max MD [address] [place] [address] [address] [place] [phone] Discharge Disposition: Home or Self Care Social [...] on filedocumented in this encounter Care Teams City Administrator Relationship Specialty Start Date End Date Blake Lindsey MD [address] [place] [address] PCP - General 05/20/16 documented as of this encounter
--- OUTSIDE RECORDS SUMMARY | 2024-07-29 17:52 | XMS_ITS | Encounter Summary ---
Author Organization [facility] Health Address [address] [place] [address] Care Team Providers Care Value Advisor Name Role Phone Blake Lindsey MD Primary Care Provider [phone] Encounter Details Date Type Department Care Team (Latest Contact Info) Description 04/03/2015 [facility] - Orthopedics [address] [facility], [facility] [place] [address] Reji Virk MD [address] [place], [place] [phone] Discharge Disposition: Home or Self Care Social [...] unchanged. Report dictated by Briana Muñoz MD. (Aba Tutor). This report was approved ??by Briana Muñoz [...] unchanged. Report dictated by Briana Muñoz MD. (Aba Tutor). This report was approved by Briana Muñoz M.D. on 04/03/2015 3:28 PM. I, Dr. ALICIA GREEN M.D. have personally reviewed and interpreted thisexamination/study. This report was electronically signed by ALICIA GREEN M.D. on 04/03/20154:13 PM . Reji Virk MD DIAGNOSTIC IMAGING O RDERABLES documented in this encounter Visit Diagnoses Diagnosis Follow-up examination documented in this encounter Care Teams Value Advisor Relationship Specialty Start Date End Date Blake Lindsey MD [address] [place] [address] PCP - General 05/20/16 documented as of this encounter
--- OUTSIDE RECORDS SUMMARY | 2024-07-29 17:52 | XMS_ITS | Encounter Summary ---
Author Organization [facility] Health Address [address] [place] [address] Care Team Providers Care Lacer And Tier Name Role Phone Blake Lindsey MD Primary Care Provider [phone] Encounter Details Date Type Department Care Team (Latest Contact Info) Description 10/30/2015 [facility] [address] [facility], [facility] [place] [address] Reji Virk MD [address] [place], [place] [phone] Discharge Disposition: Home or Self Care Social [...] neoplasm documented in this encounter Care Teams Lacer And Tier Relationship Specialty Start Date End Date Blake Lindsey MD [address] [place] [address] PCP - General 05/20/16 documented as of this encounter
--- OUTSIDE RECORDS SUMMARY | 2024-07-29 17:52 | XMS_ITS | Encounter Summary ---
Author Organization [facility] Health Address [address] [facility] [place] [address] Care Team Providers Care Customer Technical Services Manager Name Role Phone Blake Lindsey MD Primary Care Provider [phone] Encounter Details Date Type Department Care Team (Latest Contact Info) Description 06/26/2013 Hospital Outpatient Visit Historic [facility] PET [address] [place] [phone] Discharge Disposition: Home or Self Care Social [...] WHOLE BODY Routine 06/26/2013 12: 36 PM BOILER PLANT OPERATOR GLUCOSE - POINT OF CARE (AMB) [facility] Routine 06/26/2013 GLUCOSE - POINT OF CARE (AMB) [facility] Routine 06/26/2013 documented in this encounter Results * PET CT WHOLE BODY (06/26/2013 12:36 PM BOILER PLANT OPERATOR) Anatomical Region Laterality Modality Other Impressions 06/26/2013 5:54 PM BOILER PLANT OPERATOR IMPRESSION: 1. Interval decreased metabolic activity is [...] 5:54 PM . Narrative 06/26/2013 5:54 PM BOILER PLANT OPERATOR Procedure: PET/CT Study. Referring Physician: Dr. Castillo [...] MD LAB - POINT OF CARE ORDERABLES [facility] RADIOLOGY * GLUCOSE - POINT OF CARE (AMB) [facility] (06/26/2013) Glucose POCT 91 mg/dL [facility] Capillary blood specimen (specimen) 06/26/2013 Renee Shin MD LAB - POINT OF CARE ORDERABLES [facility] documented in this encounter Visit Diagnoses Diagnosis Hodgkin's disease (HCC) documented in this encounter Care Teams Customer Technical Services Manager Relationship Specialty Start Date End Date Blake Lindsey MD [address] [place] [address] PCP - General 05/20/16 documented as of this encounter
--- OUTSIDE RECORDS SUMMARY | 2024-07-29 17:52 | XMS_ITS | Encounter Summary ---
Author Organization [facility] Health Address [address] [place] [address] Care Team Providers Care Vegetable Specker Name Role Phone Blake Lindsey MD Primary Care Provider [phone] Encounter Details Date Type Department Care Team (Latest Contact Info) Description 07/31/2015 Hospital Outpatient Visit [facility] DIAGNOSTIC RAD CSM [address]L [address] [facility]. [facility] [place] [address] Reji Virk MD [address] [place], [place] [phone] Discharge Disposition: Home or Self Care Social [...] THORACOLUMBAR SPINE 2VW Routine 07/31/2015 10:50 AM CATEGORY ANALYST XR CERVICAL SPINE 2 OR 3VW Routine 07/31/2015 10:50 AM CATEGORY ANALYST documented in this encounter Results * XR THORACOLUMBAR SPINE 2VW (07/31/2015 10:50 AM CATEGORY ANALYST) Anatomical Region Laterality Modality Spine Other Impressions 07/31/2015 4:45 PM CATEGORY ANALYST Impression: Unchanged postoperative appearance of instrumented [...] 4:45 PM . Narrative 07/31/2015 4:45 PM CATEGORY ANALYST Exam: XR SPINE THORACOLUMBAR 2 VWS, [...] SPINE 2 OR 3VW (07/31/2015 10:50 AM CATEGORY ANALYST) Anatomical Region Laterality Modality Spine Other Impressions 07/31/2015 4:45 PM CATEGORY ANALYST Impression: Unchanged postoperative appearance of instrumented [...] 4:45 PM . Narrative 07/31/2015 4:45 PM CATEGORY ANALYST Exam: XR SPINE THORACOLUMBAR 2 VWS, [...] neoplasm documented in this encounter Care Teams Vegetable Specker Relationship Specialty Start Date End Date Blake Lindsey MD [address] [place] [address] PCP - General 05/20/16 documented as of this encounter
--- OUTSIDE RECORDS SUMMARY | 2024-07-29 17:52 | XMS_ITS | Encounter Summary ---
Author Organization [facility] Health Address [address] [facility] [place] [address] Care Team Providers Care Part Time Flexible Clerk Name Role Phone Blake Lindsey MD Primary Care Provider [phone] Encounter Details Date Type Department Care Team (Late st Contact Info) Description 03/11/2013 Hospital Outpatient Visit Historic [facility] [address] [place] [address] Castillo Max MD [address] [place] [address] [address] [place] [address] Social History Tobacco Use Types Packs/Day Years [...] on filedocumented in this encounter Care Teams Part Time Flexible Clerk Relationship Specialty Start Date End Date Blake Lindsey MD [address] [place] [address] PCP - General 05/20/16 documented as of this encounter
--- OUTSIDE RECORDS SUMMARY | 2024-07-29 17:52 | XMS_ITS | Encounter Summary ---
Author Organization [facility] Health Address [address] [facility] [place] [address] Care Team Providers Care Federal Law Clerk Name Role Phone Blake Lindsey MD Primary Care Provider [phone] Encounter Details Date Type Department Care Team (Latest Contact Info) Description 07/16/2015 Hospital Outpatient Visit Historic [facility] PET [address] [place] [phone] Discharge Disposition: Home or Self Care Social [...] WHOLE BODY Routine 07/16/2015 9:3 5 AM PROGRAM SERVICES ASSISTANT GLUCOSE - POINT OF CARE (AMB) [facility] Routine 07/16/2015 GLUCOSE - POINT OF CARE (AMB) [facility] Routine 07/16/2015 documented in this encounter Results * PET CT WHOLE BODY (07/16/2015 9:35 AM PROGRAM SERVICES ASSISTANT) Anatomical Region Laterality Modality Other Impressions 07/16/2015 12:05 PM PROGRAM SERVICES ASSISTANT IMPRESSION: 1. No evidence of residual/recurrent disease. [...] 12:05 PM . Narrative 07/16/2015 12:05 PM PROGRAM SERVICES ASSISTANT Procedure: PET/CT Study. Referring Physician: Dr. Castillo [...] musculature is likely physiologic. Procedure Note Marshal Patel, DO - 10/30/2017 [...] DO LAB - POINT OF CARE ORDERABLES [facility] RADIOLOGY * GLUCOSE - POINT OF CARE (AMB) [facility] (07/16/2015) Glucose POCT 91 mg/dL [facility] Capillary blood specimen (specimen) 07/16/2015 Marshal Patel DO LAB - POINT OF CARE ORDERABLES [facility] documented in this encounter Visit Diagnoses Diagnosis Hodgkin lymphoma (HCC) Hodgkin's disease, unspecified Fever Fever, unspecified documented in this encounter Care Teams Federal Law Clerk Relationship Specialty Start Date End Date Blake Lindsey MD [address] [place] [address] PCP - General 05/20/16 documented as of this encounter
--- OUTSIDE RECORDS SUMMARY | 2024-07-29 17:52 | XMS_ITS | Encounter Summary ---
Author Organization [facility] Health Address [address] [place] [address] Care Team Providers Care Coremaking Machine Operator Name Role Phone Blake Lindsey MD Primary Care Provider [phone] Encounter Details Date Type Department Care Team (Latest Contact Info) Description 02/21/2014 Hospital Outpatient Visit Historic [facility] IVR [address] [place] [id number] Kareem Baker MD [address] [place] [address] Discharge Disposition: Home or Self Care Social [...] 3:29 PM Note Type: H&P Status: Signed Triage Assistant: Briana Muñoz MD (Resident) Cosigner: Kareem Baker MD at 02/25/2014 8:45 PM [facility] Short Pre-Procedure History and Physical Patient: Lakeisha [...] 5:25 PM Note Type: Procedures Status: Signed Triage Assistant: Kareem Baker MD (Physician) Procedure Orders: 1. IP SEDATION POST [[id number]] ordered by Kareem Baker MD at 02/21/14 [...] 4:58 PM Note Type: Procedures Status: Signed Triage Assistant: Briana Muñoz MD (Resident) Cosigner: Kareem Baker MD at 02/25/2014 8:45 PM IR Brief Post-Procedure Note Lakeisha Alejandra Attending: Dr. Baker Car Hop: Dr. Muñoz Diagnosis: Lymphoma Description of procedure: [...] 3:44 PM Note Type: Procedures Status: Signed Triage Assistant: Kareem Baker MD (Physician) Procedure Orders: 1. IP SEDATION PRE [[id number]] ordered by Kareem Baker MD at 02/21/14 [...] alternatives with patient, family members or patient volunteer patient representative: Yes Attestation: I have reviewed the [...] TISSUE Routine 02/21/2014 4:55 PM CDT CYTOLOGY NON-TIP TESTER PANEL (STL) Routine 02/21/2014 4:21 PM CDT [...] performed using 22-gauge Chiba needle. Aspirin the social worker health services the since lymphoid cells were present, the social worker health services requested to additional core samples to be sent on [facility]. Hence, 4 core samples were acquired [...] lesion, 2 fine needle aspirations were performed [id number] Chiba needle. Aspirin the social worker health services the since lymphoid cellswere present, the social worker health services requested to additional core samples to besent [...] performed using 22-gauge Chiba needle. Aspirin the social worker health services the since lymphoid cells were present, the social worker health services requested to additional core samples to be sent on [facility]. Hence, 4 core samples were acquired [...] lesion, 2 fine needle aspirations were performed [id number] Chiba needle. Aspirin the social worker health services the since lymphoid cellswere present, the social worker health services requested to additional core samples to besent [...] The flow cytometric analysis for this biopsy ([id number]) has a non-clonal T cell-predominant population compatible with normal thymus. There is no epithelial neoplasm. SENIOR APPLICATION SOFTWARE ENGINEER/AF/edk The performance characteristics of all immunohistochemical and indirect immunofluorescence stains (if any) cited in this report were determined by the Histopathology Laboratory of [facility].?? Some of these tests were developed by [...] by Kanika Steiner MD. Electronically signed 02/23/2014 [facility] ([facility]) Other (qualifier value) 02/21/2014 4:55 PM CDT 02/22/2014 7:39 AM CDT Narrative [facility] ([facility]) - 02/23/2014 7:36 PM CDT Collection Date->02/21/14 Collection Time-> 4:23 PM Specimen A->Mediastinum Castillo Max MD LAB - PATHOLOGY/CY TOLOGY ORDERABLES [facility] ([facility]) * CYTOLOGY NON-TIP TESTER PANEL (STL) (02/21/2014 4:21 PM CDT) Cytology Non-Seed Analysis Laboratory Assistant Reference: [id number] Specimen: MEDIASTINUM, MASS Clinical History: h/o lymphoma, [...] refer to the concurrent flow cytometric analysis ([id number]) and surgical biopsy specimen ([id number]). ES/OA COMMENT(S): PRELIMINARY DIAGNOSIS: Immediate interpretation by: Dr. Reymundo Allen PASS 1: ??Many lymphoid cells PASS 2: ??Many lymphoid cells This case has been personally reviewed and interpreted by the attending (teaching) pathologist. Initial Evaluation performed by Dax NIELSEN(ASCP). Electronically signed 02/23/2014 Final Diagnosis performed by Mannie Allen MD. Electronically signed 02/23/2014 [facility] ([facility]) Other (qualifier value) 02/21/2014 4:21 PM CDT 02/22/2014 1:11 PM CDT Narrative [facility] ([facility]) - 02/23/2014 2:39 PM CDT Diagnosis->mediastinal mass Collection Date->02/21/14 Collection Time-> 4:18 PM Specimen A->Mediastinum Castillo Max MD LAB - PATHOLOGY/CY TOLOGY ORDERABLES [facility] ([facility]) documented in this encounter Visit Diagnoses Diagnosis Hodgkin's disease (HCC) Swelling, mass, or lump in chest documented in this encounter Care Teams Coremaking Machine Operator Relationship Specialty Start Date End Date Blake Lindsey MD [address] [place] [address] PCP - General 05/20/16 documented as of this encounter
--- OUTSIDE RECORDS SUMMARY | 2024-07-29 17:52 | XMS_ITS | Encounter Summary ---
Author Organization [facility] Health Address [address] [place] [address] Care Team Providers Care Medical Liaison Name Role Phone Blake Lindsey MD Primary Care Provider [phone] Encounter Details Date Type Department Care Team (Late st Contact Info) Description 09/18/2015 [facility] [address] [place] [phone] Wai Lowry MD [address] [place] [address] [place] [address] Discharge Disposition: Home or Self [...] filedocumented in this encounter Care Teams Medical Liaison Relationship Specialty Start Date End Date Blake Lindsey MD [address] [place] [address] PCP - General 05/20/16 documented as of this encounter
--- OUTSIDE RECORDS SUMMARY | 2024-07-29 17:52 | XMS_ITS | Encounter Summary ---
Author Organization [facility] Health Address [address] [facility] [place] [address] Care Team Providers Care Publicity Writer Name Role Phone Blake Lindsey MD Primary Care Provider [phone] Encounter Details Date Type Department Care Team (Latest Contact Info) Description 11/21/2014 Hospital Outpatient Visit Historic [facility] [address] [place] [phone] Castillo Max MD [address] [place] [address] [address] [place] [id number] Discharge Disposition: Home or Self Care Social [...] on filedocumented in this encounter Care Teams Publicity Writer Relationship Specialty Start Date End Date Blake Lindsey MD [address] [place] [address] PCP - General 05/20/16 documented as of this encounter
--- OUTSIDE RECORDS SUMMARY | 2024-07-29 17:52 | XMS_ITS | Encounter Summary ---
Author Organization [facility] Health Address [address] [place] [address] Care Team Providers Care Oil Field Laborer Name Role Phone Blake Lindsey MD Primary Care Provider Encounter Details Date Type Department Care Team (Latest Contact Info) Description 02/20/2013 Hospital Outpatient Visit Historic [facility] PET [address] [place] [phone] Discharge Disposition: Home or Self Care Social [...] CARE (AMB) [facility] Routine 08/02/1998 12:00 AM HOTEL SECURITY OFFICER documented in this encounter Results * PET [...] POINT OF CARE ORDERABLES Performing Organization Address City/State/[facility] Co de Phone Number [facility] RADIOLOGY * GLUCOSE - POINT OF CARE (AMB) [facility] (08/02/1998 12:00 AM HOTEL SECURITY OFFICER) Glucose POCT 115 mg/dL [facility] Capillary blood specimen (specimen) 08/02/1998 Renee Shin MD LAB - POINT OF CARE ORDERABLES [facility] documented in this encounter Visit Diagnoses Diagnosis Hodgkin's disease (HCC) documented in this encounter Care Teams Oil Field Laborer Relationship Specialty Start Date End Date Blake Lindsey MD [address] [place] [address] PCP - General 05/20/16 documented as of this encounter
--- OUTSIDE RECORDS SUMMARY | 2024-07-29 17:52 | XMS_ITS | Encounter Summary ---
Author Organization [facility] Health Address [address] [facility] [place] [address] Care Team Providers Care Gang Pusher Name Role Phone Blake Lindsey MD Primary Care Provider [phone] Encounter Details Date Type Department Care Team (Latest Contact Info) Description 02/19/2015 [facility] [address] [facility], [facility] [place] [address] Reji Virk MD [address] [place], [place] [phone] Discharge Disposition: Home or Self Care Social [...] CDT) BUN 10 7 - 26 mg/dL [facility] Creatinine 0.7 0.6 - 1.2 mg/dL [facility] Sodium 142 136 - 145 mmol/L [facility] Potassium 3.6 3.5 - 4.5 mmol/L [facility] Chloride 106 98 - 107 mmol/L [facility] CO2 25 22 - 29 mmol/L [facility] Glucose 110 70 - 115 mg/dL [facility] Calcium 9.6 8.4 - 10.2 mg/dL [facility] Anion Gap 15 8 - 18 [facility] BUN/Creatinine Ratio 14 7 - 23 [facility] Osmolality Calculated 279 270 - 300 mOsm/kg [facility] eGFR >60 >60 mL/min/1.7 3 m2 [facility] Blood specimen (specimen) BLOOD SPECIMEN / Unknown 02/19/2015 11:55 AM CDT 02/19/2015 12:42 PM CDT Reji Virk MD LAB - CHEMISTRY [facility] Organization Address City/State/ZIP Co de Phone Number [address] [phone] * (ABNORMAL) DIFFERENTIAL MANUAL (02/19/2015 11:55 AM CDT) WBC (corrected for NRBC) 6.7 10? 3 /uL [facility] Total Cell Count 100 [facility] Neutrophils Absolute Manual 4.82 1.60 - 7.00 10? 3 /uL [facility] Comment:(BANDS+SEGS) x WBC = NEUT # (ANC) Lymphocyte Absolute Manual 1.21 0.80 - 2.90 10? 3 /uL [facility] Monocytes Absolute Manual 0.47 0.14 - 0.66 10? 3 /uL [facility] Eosinophils Absolute Manual 0.20 0.00 - 0.22 10? 3 /uL [facility] Band % Manual 1 0 - 10 % [facility] Neutrophil % Manual 71(H) 30 - 60 % [facility] Lymphocyte % Manual 18(L) 20 - 45 % [facility] Monocytes % Manual 7 2 - 10 % [facility] Eosinophils % Manual 3 1 - 6 % [facility] Platelet Estimate Adequate Adequate [facility] RBC Morphology Normal [facility] Blood specimen (specimen) BLOOD SPECIMEN / Unknown 02/19/2015 11:55 AM CDT 02/19/2015 12:51 PM CDT Reji Virk MD LAB - HEMATOLOGY ORD ERABLES Performing Organization Address City/State/[facility] Co de Phone Number [address] [phone] * (ABNORMAL) URINALYSIS REFLEX TO MICROSCOPIC NO CULTURE (02/19/2015 11:55 AM CDT) Color UA Yellow Straw, Yellow, Colorless, Light Yellow [facility] Clarity UA Clear Clear [facility] Specific [place] UA 1.023 1.001 - 1.030 [facility] pH UA 5.5 5.0 - 8.0 [facility] Protein UA Trace(A) <=20 mg/dL [facility] Glucose UA Negative Negative mg/dL [facility] Ketone UA Negative Negative mg/dL [facility] Bilirubin UA Negative Negative mg/dL [facility] Blood UA Small(A) Negative [facility] Nitrite UA Negative Negative [facility] Leukocyte Esterase Large(A) Negative [facility] Urobilinogen UA <2.0 <2.0 mg/dL [facility] RBC UA 11(H) 0 - 8 /HPF [facility] WBC UA 18(H) 0 - 2 /HPF [facility] Bacteria UA Moderate(A) Rare, Occasional, None /HPF [facility] Squamous Epithelial Cells UA 1 0 - 1 /HPF [facility] Mucus UA Moderate(A) None /LPF [facility] Urine specimen (specimen) URINE SPECIMEN OBTAINED BY CLEAN CATCH PROCEDURE / Unknown 02/19/2015 11:55 AM CDT 02/19/2015 12:43 PM CDT Reji Virk MD LAB - URINALYSIS ORD ERABLES Performing Organization Address City/[facility]/ZIP Co de Phone Number [address] [phone] * (ABNORMAL) CBC W AUTO DIFFERENTIAL (02/19/2015 11:55 AM CDT) WBC 6.7 3.5 - 10.5 10? 3 /uL [facility] RBC 4.09 3.90 - 5.00 10? 6 /uL [facility] Hemoglobin 13.5 12.0 - 15.5 g/dL [facility] Hematocrit 39.9 35.0 - 45.0 % [facility] MCV 97.6(H) 81.0 - 97.0 fL [facility] MCH 33.0 28.0 - 34.0 pg [facility] MCHC 33.8 32.0 - 36.0 g/dL [facility] Platelet Count 162 150 - 400 10? 3 /uL [facility] RDW-SD 45.1 36.0 - 50.0 fL [facility] RDW-CV 12.6 11.2 - 14.8 % [facility] MPV 8.8(L) 9.3 - 12.8 fL [facility] Reflex Status Manual Differential to follow. [facility] Blood specimen (specimen) BLOOD SPECIMEN / Unknown 02/19/2015 11:55 AM CDT 02/19/2015 12:42 PM CDT Reji Virk MD LAB - HEMATOLOGY ORD ERABLES Performing Organization Address City/[facility]/ZIP Co de Phone Number [address] [phone] * CBC W AUTO DIFFERENTIAL (02/19/2015 11:55 AM CDT) Blood specimen (specimen) BLOOD SPECIMEN / Unknown 02/19/2015 11:55 AM CDT Narrative [facility] - 02/19/2015 1:06 PM CDT The following orders were created for panel order CBC W/ DIFFERENTIAL. Procedure ? Abnormality ? Status ? --------- ? ------ ? CBC WITH DIFFERENTIAL[[id number]] ? Abnormal ?Final result ? MANUAL DIFFERENTIAL[[id number]] ? Abnormal ?Final result ? Please view results for these tests on the individual orders. Reji Virk MD LAB - HEMATOLOGY ORD ERABLES Performing Organization Address City/State/[facility] Co de Phone Number [facility] [address] [place] [address], [facility] documented in this encounter Visit Diagnoses Diagnosis Other mechanical complication of other internal orthopedic device, implant, and graft (HCC) Other mechanical complication of other internal orthopedic device, implant, and graft Arthrodesis status documented in this encounter Care Teams Gang Pusher Relationship Specialty Start Date End Date Blake Lindsey MD [address] [place] [address] PCP - General 05/20/16 documented as of this encounter
--- OUTSIDE RECORDS SUMMARY | 2024-07-29 17:53 | XMS_ITS | Encounter Summary ---
Author Organization [facility] Health Address [address] [facility] [address] Care Team Providers Care News Cameraman Name Role Phone Blake Lindsey MD Primary Care Provider Encounter Details Date Type Department Care Team (Late st Contact Info) Description 02/18/2013 Hospital Outpatient Visit Historic [facility] [address] [place] [address] Castillo Max MD [address] [place] [address] [address] [place] [address] Social History Tobacco Use Types Packs/Day Years [...] on filedocumented in this encounter Care Teams News Cameraman Relationship Specialty Start Date End Date Blake Lindsey MD [address] [place] [address] PCP - General 05/20/16 documented as of this encounter
--- OUTSIDE RECORDS SUMMARY | 2024-07-29 17:53 | XMS_ITS | Encounter Summary ---
Author Organization [facility] Health Address [address] [place] [address] Care Team Providers Care Lithograph Press Feeder Name Role Phone Blake Lindsey MD Primary Care Provider [phone] Encounter Details Date Type Department Care Team (Late st Contact Info) Description 01/23/2013 Hospital Outpatient Visit Historic [facility] [address] [place] [address] Castillo Max MD [address] [place] [address] [address] [place] [address] Social History Tobacco Use Types [...] CDT) WBC 19.9(H) 3.5 - 10.5 10^3/uL [facility] WBC (corrected for NRBC) COMMENT [facility] Comment:THE WBC COUNT IS COR RECTED BY THE INSTRUMENT FOR NRBC'S. RBC 3.59(L) 3.90 - 5.00 10^6/uL [facility] Hemoglobin 10.2(L) 12.0 - 15.5 g/dL [facility] Hematocrit 30.2(L) 35.0 - 45.0 % [facility] MCV 84.1 81.0 - 97.0 FL [facility] MCH 28.4 28.0 - 34.0 PG [facility] MCHC 33.8 32.0 - 36.0 G/DL [facility] Platelet 42(LL) 150 - 400 10^3/uL [facility] Comment: RESULT CONFIRMED BY REPEAT ANALYSIS, CHECKED ?? NOT CALLED [facility] Comment Platelet COMMENT [facility] Comment: WHEN REPORTED, PLT. COUNT HAS BEEN CONFIRMED BY SLIDE REVIEW. RDW 15.0(H) 11.2 - 14.8 % [facility] RDW-SD 45.1 36 - 50 FL [facility] MPV 10.6 9.3 - 12.8 FL [facility] nRBC Absolute 0.29(H) 0 10^3/uL [facility] nRBC Auto 1.5(H) 0 % [facility] Differential Type MANUAL [facility] Neutrophils Absolute Manual 13.53(H) 1.7 - 7.0 10^3/uL [facility] Comment:(BANDS AND SEGS) X W BC = NEUT # (ANC) Lymphocytes Absolute Manual 1.00 0.9 - 2.9 10^3/uL [facility] Monocyte Absolute Manual 0.80 0.3 - 0.9 10^3/uL [facility] Band % Manual 23(H) 0 - 10 % [facility] Neutrophils % manual 45 30 - 60 % [facility] Lymphocytes % manual 5(L) 20 - 45 % [facility] Monocytes % Manual 4 2 - 10 % [facility] Metamyelocytes % Manual 20(HH) 0 % [facility] Myelocytes % Manual 2(HH) 0 % [facility] Blast % manual 1(H) 0 % [facility] nRBC Manual 1(H) 0 % [facility] Platelet Estimate DECREASED [facility] Anisocytosis 1+(A) NONE SEEN [facility] 01/23/2013 10:4 5 AM CDT 01/23/2013 10:58 AM CDT Castillo Max MD LAB - HEMATOLOGY O RDERABLES Performing Organization Address City/[facility]/ZIP Co de Phone Number [address] [phone] * (ABNORMAL) [facility]DH BLOOD (01/23/2013 10:45 AM CDT) [facility] Total 365(H) 125 - 243 Units/L [facility] 01/23/2013 10:4 5 AM CDT 01/23/2013 10:58 AM CDT Castillo Max MD LAB - CHEMISTRY OR DERABLES Performing Organization Address City/[facility] Co de Phone Number [address] [phone] * (ABNORMAL) COMPREHENSIVE METABOLIC PANEL (01/23/2013 10:45 AM CDT) BUN 7 7 - 26 mg/dL [facility] Creatinine 0.5(L) 0.6 - 1.2 mg/dL [facility] eGFR by MDRD > 60 ML/MIN [facility] Comment: Chronic kidney disease: ??<60 ml/min Kidney failure: ?<15 ml/min Based on BSA of 1.73m2. Sodium 144 136 - 145 mmol/L [facility] Potassium 3.2(L) 3.5 - 4.5 mmol/L [facility] Chloride 102 98 - 107 mmol/L [facility] CO2 21(L) 22 - 29 mmol/L [facility] Glucose 137(H) 70 - 115 mg/dL [facility] Calcium 10.1 8.4 - 10.2 mg/dL [facility] Protein Total 6.2 6.0 - 8.3 g/dL [facility] Albumin 3.5 3.4 - 5.0 g/dL [facility] Bilirubin Total 0.1(L) 0.2 - 1.2 mg/dL [facility] Alkaline Phosphatase 74 40 - 150 Units/L [facility] ALT 8 0 - 55 Units/L [facility] AST 8 5 - 34 Units/L [facility] Anion Gap 24(H) 8 - 18 [facility] BUN/Creatinine Ratio 14 7 - 23 [facility] Osmolality Calculation 282 270 - 300 mOsm/kg [facility] Albumin/Globulin Ratio 1.3 1.1 - 2.3 [facility] 01/23/2013 10:4 5 AM CDT 01/23/2013 10:58 AM CDT Castillo Max MD LAB - CHEMISTRY OR DERABLES Performing Organization Address City/State/[facility] Co de Phone Number [facility] [address] [place] [address] documented in this encounter Visit Diagnoses Not on filedocumented in this encounter Care Teams Lithograph Press Feeder Relationship Specialty Start Date End Date Blake Lindsey MD [address] [place] [address] PCP - General 05/20/16 documented as of this encounter
--- OUTSIDE RECORDS SUMMARY | 2024-07-29 17:53 | XMS_ITS | Encounter Summary ---
Author Organization [facility] Health Address [address] [facility] [place] [address] Care Team Providers Care Senior Solutions Engineer Name Role Phone Blake Lindsey MD Primary Care Provider [phone] Encounter Details Date Type Department Care Team (Late st Contact Info) Description 11/10/2012 Anesthesia Historic Visit [facility] [address] [place] [phone] Social History Tobacco Use Types Packs/Day Years [...] filedocumented in this encounter Care Teams Senior Solutions Engineer Relationship Specialty Start Date End Date Blake Lindsey MD [address] [place] [address] PCP - General 05/20/16 documented as of this encounter
--- OUTSIDE RECORDS SUMMARY | 2024-07-29 17:53 | XMS_ITS | Encounter Summary ---
Author Organization [facility] Address [address] [facility] [place] [address] Care Team Providers Care Tile Layer Supervisor Name Role Phone Blake Lindsey MD Primary Care Provider Encounter Details Date Type Department Care Team (Latest Contact Info) Description 02/20/2013 Hospital Outpatient Visit Historic [facility] SERVICES [address] [place] [phone] Castillo Max MD [address] [place] [address] [address] [place] [address] Discharge Disposition: Home or Self Care Social [...] CDT) WBC 5.4 3.5 - 10.5 10^3/uL [facility] WBC (corrected for NRBC) COMMENT [facility] Comment:THE WBC COUNT IS COR RECTED BY THE INSTRUMENT FOR NRBC'S. RBC 2.97(L) 3.90 - 5.00 10^6/uL [facility] Hemoglobin 9.2(L) 12.0 - 15.5 g/dL [facility] Hematocrit 27.0(L) 35.0 - 45.0 % [facility] MCV 90.9 81.0 - 97.0 FL [facility] MCH 31.0 28.0 - 34.0 PG [facility] MCHC 34.1 32.0 - 36.0 G/DL [facility] Platelet 93(L) 150 - 400 10^3/uL [facility] Comment:ALL CBC PARAMETERS H AVE BEEN CHECKED. Comment Platelet COMMENT [facility] Comment: WHEN REPORTED, PLT. COUNT HAS BEEN CONFIRMED BY SLIDE REVIEW. RDW 17.9(H) 11.2 - 14.8 % [facility] RDW-SD 54.6(H) 36 - 50 FL [facility] MPV 9.3 9.3 - 12.8 FL [facility] nRBC Absolute 0.11(H) 0 10^3/uL [facility] nRBC Auto 2.0(H) 0 % [facility] Differential Type MANUAL [facility] Neutrophils Absolute Manual 4.97 1.7 - 7.0 10^3/uL [facility] Comment:(BANDS AND SEGS) X W BC = NEUT # (ANC) Lymphocytes Absolute Manual 0.11(L) 0.9 - 2.9 10^3/uL [facility] Monocyte Absolute Manual 0.22(L) 0.3 - 0.9 10^3/uL [facility] Band % Manual 6 0 - 10 % [facility] Neutrophils % manual 86(H) 30 - 60 % [facility] Lymphocytes % manual 2(L) 20 - 45 % [facility] Monocytes % Manual 4 2 - 10 % [facility] Metamyelocytes % Manual 2(H) 0 % [facility] Platelet Estimate DECREASED [facility] Anisocytosis 1+(A) NONE SEEN [facility] Macrocytosis 1+(A) NONE SEEN [facility] Polychromasia 1+(A) NONE SEEN [facility] Tear Drop Cells 1+(A) NONE SEEN [facility] Comment [facility] Comment:SMEAR REVIEWED. 02/20/2013 8:48 AM CDT 02/20/2013 8:56 AM CDT Castillo Max MD LAB - HEMATOLOGY O RDERABLES Performing Organization Address [facility] de Phone Number [address] [phone] * PHOSPHORUS BLOOD (02/20/2013 8:48 AM CDT) Phosphorus 4.5 2.3 - 4.7 mg/dL [facility] 02/20/2013 8:48 AM CDT 02/20/2013 8:56 AM CDT Castillo Max MD LAB - CHEMISTRY OR DERABLES Performing Organization Address [facility] Co de Phone Number [address] [phone] * MAGNESIUM BLOOD (02/20/2013 8:48 AM CDT) Magnesium 2.0 1.6 - 2.6 mg/dL [facility] 02/20/2013 8:48 AM CDT 02/20/2013 8:56 AM CDT Castillo Max MD LAB - CHEMISTRY OR DERABLES Performing Organization Address [facility] Co de Phone Number [place] [address] [phone] * LDH BLOOD (02/20/2013 8:48 AM CDT) LDH Total 238 125 - 243 Units/L [facility] 02/20/2013 8:48 AM CDT 02/20/2013 8:56 AM CDT Castillo Max MD LAB - CHEMISTRY OR DERABLES [facility] [address] [phone] * (ABNORMAL) COMPREHENSIVE METABOLIC PANEL (02/20/2013 8:48 AM CDT) BUN 13 7 - 26 mg/dL [facility] Creatinine 0.5(L) 0.6 - 1.2 mg/dL [facility] eGFR by MDRD > 60 ML/MIN [facility] Comment: Chronic kidney disease: ??<60 ml/min Kidney failure: ?<15 ml/min Based on BSA of 1.73m2. Sodium 141 136 - 145 mmol/L [facility] Potassium 4.1 3.5 - 4.5 mmol/L [facility] Chloride 103 98 - 107 mmol/L [facility] CO2 23 22 - 29 mmol/L [facility] Glucose 122(H) 70 - 115 mg/dL [facility] Calcium 10.0 8.4 - 10.2 mg/dL [facility] Protein Total 6.4 6.0 - 8.3 g/dL [facility] Albumin 3.6 3.4 - 5.0 g/dL [facility] Bilirubin Total 0.3 0.2 - 1.2 mg/dL [facility] Alkaline Phosphatase 72 40 - 150 Units/L [facility] ALT 11 0 - 55 Units/L [facility] AST 13 5 - 34 Units/L [facility] Anion Gap 19(H) 8 - 18 [facility] BUN/Creatinine Ratio 26(H) 7 - 23 [facility] Osmolality Calculation 277 270 - 300 mOsm/kg [facility] Albumin/Globulin Ratio 1.3 1.1 - 2.3 [facility] LABORATORY [facility] 02/20/2013 8:48 AM CDT 02/20/2013 8:56 AM CDT Castillo Max MD LAB - CHEMISTRY OR DERABLES [facility] [address] [phone] documented in this encounter Visit Diagnoses Not on filedocumented in this encounter Care Teams Tile Layer Supervisor Relationship Specialty Start Date End Date Blake Lindsey MD [address] [place] [address] PCP - General 05/20/16 documented as of this encounter
--- OUTSIDE RECORDS SUMMARY | 2024-07-29 17:53 | XMS_ITS | Encounter Summary ---
Author Organization [facility] Health Address [address] [place] [address] Care Team Providers Care Warp Spooler Name Role Phone Blake Lindsey MD Primary Care Provider [phone] Encounter Details Date Type Department Care Team (Latest Contact Info) Description 02/10/2013 Hospital Outpatient Visit Historic [facility] [address] [place] [phone] Castillo Max MD [address] [place] [address] [address] [place] [id number] Discharge Disposition: Home or Self Care Social [...] CDT) Platelet 4(LL) 150 - 400 10^3/uL [facility] Comment: RESULT CONFIRMED BY REPEAT ANALYSIS, CALLED TO AND READ BACK BY ??AT 1704 ON 02/10/13. RESULT CONFIRMED BY REPEAT ANALYSIS, CALLED TO AND READ BACK BY NYLA AT 1704 ON 02/10/13. Venous blood specimen (specimen) BLOOD SPECIMEN / Unknown 02/10/2013 4:45 PM CDT 02/10/2013 4:49 PM CDT Castillo Max MD LAB - HEMATOLOGY O RDERABLES [address] [phone] * (ABNORMAL) PLATELET COUNT AUTO (02/10/2013 1:00 PM CDT) Platelet 5(LL) 150 - 400 10^3/uL [facility] Comment: RESULT CONFIRMED BY REPEAT ANALYSIS, CALLED TO AND READ BACK BY ??AT 1340 ON 02/10/13. Venous blood specimen (specimen) 02/10/2013 1:00 PM CDT 02/10/2013 1:16 PM CDT Castillo Max MD LAB - HEMATOLOGY O ROSSI Performing Organization Address [facility] Co de Phone Number [address] [phone] * CROSSMATCH RBC LEUKOREDUCED (02/10/2013 12:28 PM CDT) [facility] Blood Product [id number] ?O+ ?[id number] ? TRANSFUSED ? 02/10/13 1315 ?? [facility] 02/10/2013 12:2 8 PM CDT 02/10/2013 12:28 PM CDT Castillo Max MD LAB - BLOOD BANK Isi RICHEY Performing Organization Address [facility] de Phone Number [address] [phone] * PREPARE PLATELET PHERESIS UNIT(S) (02/10/2013 11:30 AM CDT) [facility] Blood Product [id number] ? O- ?[id number] ? TRANSFUSED ? 02/10/13 1600 ?? [facility] 02/10/2013 11:3 0 AM CDT 02/10/2013 11:30 AM CDT Castillo Max MD LAB - BLOOD BANK O ROSSI Performing Organization Address [facility] Co de Phone Number [address] [phone] * PREPARE PLATELET PHERESIS UNIT(S) (02/10/2013 11:30 AM CDT) [facility] Blood Product [id number] ? O+ ?[id number] ? TRANSFUSED ? 02/10/13 1210 ?? [facility] 02/10/2013 11:3 0 AM CDT 02/10/2013 11:30 AM CDT Castillo Max MD LAB - BLOOD BANK O RDERABLES Performing Organization Address City/State/[facility] Co de Phone Number [address] [phone] documented in this encounter Visit Diagnoses Not on filedocumented in this encounter Care Teams Warp Spooler Relationship Specialty Start Date End Date Blake Lindsey MD [address] [place] [address] PCP - General 05/20/16 documented as of this encounter
--- OUTSIDE RECORDS SUMMARY | 2024-07-29 17:53 | XMS_ITS | Encounter Summary ---
Author Organization [facility] Health Address [address] [facility] [place] [address] Care Team Providers Care Appian Bpm Developer Name Role Phone Blake Lindsey MD Primary Care Provider [phone] Encounter Details Date Type Department Care Team (Late st Contact Info) Description 01/09/2013 Hospital Outpatient Visit Historic [facility] OUTPATIENT SERVICES [address] [place] [phone] Castillo Max MD [address] [place] [address] Rd [address] [place] [address] Social History Tobacco Use Types Packs/Day Years [...] on filedocumented in this encounter Care Teams Appian Bpm Developer Relationship Specialty Start Date End Date Blake Lindsey MD [address] [place] [address] PCP - General 05/20/16 documented as of this encounter
--- OUTSIDE RECORDS SUMMARY | 2024-07-29 17:53 | XMS_ITS | Encounter Summary ---
Author Organization [facility] Health Address [address] [place] [address] Care Team Providers Care Char Filter Tank Tender Head Name Role Phone Blake Lindsey MD Primary Care Provider [phone] Encounter Details Date Type Department Care Team (Late st Contact Info) Description 02/10/2013 Hospital Outpatient Visit Historic [facility] [address] [place] [address] Castillo Max MD [address] [place] [address] [address] [place] [address] Social History Tobacco Use Types [...] AM CDT) Interpretation ABO/Rh Patient O POS [facility] LABORATORY [facility] Antibody Screen NEGATIVE [facility] 02/10/2013 9:17 AM CDT 02/10/2013 10:05 AM CDT Castillo Max MD LAB - BLOOD BANK O RDERABLES Performing Organization Address City/State/[facility] Co de Phone Number [facility] [address] [place] [address] documented in this encounter Visit Diagnoses Not on filedocumented in this encounter Care Teams Char Filter Tank Tender Head Relationship Specialty Start Date End Date Blake Lindsey MD [address] [place] [address] PCP - General 05/20/16 documented as of this encounter
--- OUTSIDE RECORDS SUMMARY | 2024-07-29 17:53 | XMS_ITS | Encounter Summary ---
Author Organization [facility] Health Address [address] [facility] [place] [address] Care Team Providers Care Busperson Name Role Phone Blake Lindsey MD Primary Care Provider Encounter Details Date Type Department Care Team (Late st Contact Info) Description 11/14/2012 Anesthesia Historic Visit [facility] [address] [place] [phone] Social History Tobacco Use Types Packs/Day Years [...] on filedocumented in this encounter Care Teams Busperson Relationship Specialty Start Date End Date Blake Lindsey MD [address] [place] [address] PCP - General 05/20/16 documented as of this encounter
--- OUTSIDE RECORDS SUMMARY | 2024-07-29 18:13 | XMS_ITS | Clinical Summary ---
Author Organization [facility] Address [address] [place] [address]. [place] [address] [place] [address] Care Team Providers Care Manager It Training Name Role Phone Blake Lindsey MD Primary Care Provider [phone] Allergies Active Allergy Reactions Criticality Noted Date [...] complete this topic Insurance MEDICAID Care Teams Manager It Training Relationship Specialty Start Date End Date Blake Lindsey MD [address] [place], [place] [phone] PCP - General FAMILY PRACTICE 03/03/19
--- OUTSIDE RECORDS SUMMARY | 2024-07-29 18:13 | XMS_ITS | Encounter Summary ---
Author Organization [facility] Address [address] [place] [address]. [place] [address] [place] [address] Care Team Providers Care Patient Registration Clerk Name Role Phone Blake Lindsey MD Primary Care Provider [phone] Encounter Details Date Type Department Care Team [...] filedocumented in this encounter Care Teams Patient Registration Clerk Relationship Specialty Start Date End Date Blake Lindsey MD [address] [place] [address] PCP - General FAMILY PRACTICE 03/03/19 documented as of this encounter
--- OUTSIDE RECORDS SUMMARY | 2024-07-29 18:13 | XMS_ITS | Encounter Summary ---
Author Organization [facility] Address [address] [place] [address]. [place] [address] [place] [address] Care Team Providers Care Acquisition Manager Name Role Phone Blake Lindsey MD Primary Care Provider [phone] Reason for Visit * Reason Comments Breathing Problem Cough Encounter Details Date Type Department Care Team (Latest Contact Info) Description 12/22/2020 3:00 PM CDT - 12/22/2020 3:58 PM CDT [facility] [place] [address] [place] [address] Charlie Galdamez PA [address] [place], [place] [phone] Breathing Problem; Cough Discharge Disposition: Home or [...] Atypical Pneumonia (Mycoplasma and Viral) Discharge Instructions (Georgian) documented in this encounter Medications at Time [...] daily for 5 days. 12/22/20 12/27/20 Yes ELONIA Mascorro albuterol (2.5 MG/3ML) 0.083% nebulizer solution [...] XR CHEST PA+LAT Final Result by User, [id number] (12/22 1534) Procedure(s): XR CHEST PA+LAT Date [...] 6 tablet, Refills: 0 Class: Eprescribe Pharmacy: [facility] [address] [place] [address] [address] [facility] [address] (Ph #: [phone]) benzonatate 200 MG capsule Take 1 capsule (200 mg total) by mouth 3 (three) times daily as needed. Qty: 20 capsule, Refills: 0 Class: EprProFibrixcribe Pharmacy: [facility] [address] [place] [address] [address] [facility] [address] (Ph #: [phone]) predniSONE 50 MG tablet Take 1 tablet (50 mg total) by mouth daily for 5 days. Qty: 5 tablet, Refills: 0 Class: Eprescribe [facility] [address] [place] [address] [address] [facility] [address] (Ph #: [phone]) Disposition: Discharge Follow-Up: Blake Lindsey MD [address] [address] Schedule an appointment as soon as [...] DETECTED NOT DETECTED 12/23/2020 1:01 PM CDT [facility] Comment: A Not Detected (negative) test result [...] providers and patients using the following websites: https://www.[employer]/home/Covid-19/HCP/QuestIVD/fact- sheet.html https://www.[employer]com/home/Covid-19/Patients/ Quest[employer]/fact-sheet.html This test has been authorized by the FDA under an Emergency Use Authorization (EUA) for use by authorized laboratories. Due to the current public health emergency, [facility] is receiving a high volume of samples [...] about COVID-19 can be found at the [facility] website: www.[employer]/Covid19. Test performed at [facility] [place] [place] [address] [address] [facility] [place], [place] ??[address] Director: GUIDO SALDANA DO,MPH FIRST TEST NO 12/22/2020 3:46 PM CDT [facility] EMPLOYED IN HEALTHCARE NO 12/22/2020 3:46 PM CDT [facility] SYMPTOMATIC DEFINED BY CDC YES 12/22/2020 3:46 PM CDT [facility] DATE OF SYMPTOM ONSET [id number] 12/22/2020 3:46 PM CDT [facility] HOSPITALIZATION STATUS NO 12/22/2020 3:46 PM CDT [facility] PATIENT IN ICU NO 12/22/2020 5:28 PM CDT [facility] RESIDENT OF [facility] CARE NO 12/22/2020 3:46 PM CDT [facility] NOT 12/22/2020 3:46 PM CDT [facility] PATIENT'S RACE WHITE OR 12/22/2020 3:46 PM CDT [facility] ETHNICITY NONHISPANIC 12/22/2020 3:46 PM CDT [facility] SOURCE (QST) NASOPHARYNGEAL SWAB 12/22/2020 3:46 PM CDT [facility] NASOPHARYNGEAL SWAB / Unknown 12/22/2020 3:43 PM CDT Charlie [facility] - GENERAL CHRISTOPHER DE LA GARZA Final Result [facility] [address] [place] [address], [facility] [address] [place] [address], [facility] [address] [facility] [place] [address], * XR CHEST PA+LAT (12/22/2020 3:25 PM [...] documented as of this encounter Care Teams Acquisition Manager Relationship Specialty Start Date End Date Blake Lindsey MD [address] [address] PCP - General FAMILY PRACTICE 03/03/19 documented as of this encounter
--- OUTSIDE RECORDS SUMMARY | 2024-07-29 18:13 | XMS_ITS | Encounter Summary ---
Author Organization [facility] Address [address] [place] [address]. [place] [address] [place] [address] Care Team Providers Care Gis Consultant Name Role Phone Blake Lindsey MD Primary Care Provider [phone] Reason for Visit * Reason Comments Foot Injury LEFT Encounter Details Date Type Department Care Team (Latest Contact Info) Description 05/01/2021 12:29 PM CDT - 05/01/2021 1:17 PM CDT Hospital Encounter [facility] [address] [place], [place] [address] Lina Rouse MD [address] [place], [place] [address] Foot Injury (LEFT) Discharge Disposition: Home or [...] care by your primary care physician or automotive internet sales consultant.Please mention to your follow-up physician that [...] such as many narcotic drug combinations and rrgu-[id number] cold medicines. Again, it was a pleasure taking care of you. Lina Rouse MD * Attachments The following attachments cannot be sent through Care Everywhere. * Toe Injury Discharge Instructions (Frisian) documented in this encounter Medications at Time [...] from the original note were not included. [facility] NOTE Chief Complaint Chief Complaint Patient presents with ??? Foot Injury LEFT History of Present Illness This note was prepared using a vocaltap dictation device. Please excuse any errors or [...] needed for Wheezing. 04/09/20 Annabella F Lucio UMBRELLA TIPPER MACHINE-BC albuterol sulfate HFA 108 (90 Base) MCG/ACT inhaler Inhale 2 puffs into the lungs every 4 (four) hours as needed for Wheezing or Shortness of breath (cough). 04/09/20 Annabella F Lucio UMBRELLA TIPPER MACHINE-BC atorvastatin 10 MG tablet Take 10 mg [...] FOOT LT 3V Final Result by User, [id number] (05/01 1302) Procedure(s): XR FOOT LT 3V [...] Lindsey MD [address] [place] [id number] Schedule an appointment as soon as possible for a visit [facility] [place] [address] [address] [facility] [address] [facility] [address] Schedule an appointment as soon as possible [...] foot documented in this encounter Care Teams Gis Consultant Relationship Specialty Start Date End Date Blake Lindsey MD [address] [address] PCP - General FAMILY PRACTICE 03/03/19 documented as of this encounter
--- OUTSIDE RECORDS SUMMARY | 2024-07-29 18:13 | XMS_ITS | Encounter Summary ---
Author Organization [facility] Address [address] [place] [address]. [place] [address] [place] [address] Care Team Providers Care Diesel Service Apprentice Name Role Phone Blake Lindsey MD Primary Care Provider [phone] Encounter Details Date Type Department Care Team [...] Coronavirus/COVID-19? No / Unsure 06/16/2022 1:43 PM GINSENG FARMER documented as of this encounter Plan of Treatment Not on file documented as of this encounter Visit Diagnoses Not on filedocumented in this encounter Care Teams Diesel Service Apprentice Relationship Specialty Start Date End Date Blake Lindsey MD [address] [place] [address] PCP - General FAMILY PRACTICE 03/03/19 documented as of this encounter
--- OUTSIDE RECORDS SUMMARY | 2024-07-29 18:13 | XMS_ITS | Encounter Summary ---
Author Organization [facility] Address [address] [place] [address]. [place] [address] [place] [address] Care Team Providers Care Fence Installer Name Role Phone Blake Lindsey MD Primary Care Provider [phone] Encounter Details Date Type Department Care Team [...] on filedocumented in this encounter Care Teams Fence Installer Relationship Specialty Start Date End Date Blake Lindsey MD [address] [place] [address] PCP - General FAMILY PRACTICE 03/03/19 documented as of this encounter
--- OUTSIDE RECORDS SUMMARY | 2024-07-29 18:13 | XMS_ITS | Encounter Summary ---
Author Organization [facility] Address [address] [place] [address]. [place] [address] [place] [address] Care Team Providers Care Licensed Funeral Director And Embalmer Name Role Phone Blake Lindsey MD Primary Care Provider [phone] Encounter Details Date Type Department Care Team (Late st Contact Info) Description 12/15/2020 6:45 PM CDT - 12/15/2020 11:59 PM CDT Hospital Encounter [facility] Diagnostic Imaging [address] [place] [address] Ki Gill, CLERICAL SECRETARY [address] [place] [address] Discharge Disposition: Home or Self [...] Flores MD, 12/15/2020 8:36 PM Ki Gill CLERICAL SECRETARY GENERAL IMAGING Final Resu lt documented in this encounter Visit Diagnoses Diagnosis Pain in joint, pelvic region and thigh documented in this encounter Care Teams Licensed Funeral Director And Embalmer Relationship Specialty Start Date End Date Blake Lindsey MD [address] [place] [address] PCP - General FAMILY PRACTICE 03/03/19 documented as of this encounter
--- OUTSIDE RECORDS SUMMARY | 2024-07-29 18:13 | XMS_ITS | Encounter Summary ---
Author Organization [facility] Address [address] [place] [address]. [place] [address] [place] [address] Care Team Providers Care Managing Principal Name Role Phone Blake Lindsey MD Primary Care Provider [phone] Encounter Details Date Type Department Care Team (Late st Contact Info) Description 01/02/2021 2:55 PM CDT - 01/02/2021 11:59 PM CDT Hospital Encounter [facility] [address] [place] [address] Blake Lindsey MD [address] [place], [place] [phone] Discharge Disposition: Home or Self Care (Routine [...] Hills MD, 01/03/2021 7:01 AM Ki Gill AUTOMATIC SPINNING LATHE OPERATOR GENERAL IMAGING Final Resu lt documented in this encounter Visit Diagnoses Diagnosis Pneumonia, unspecified organism documented in this encounter Care Teams Managing Principal Relationship Specialty Start Date End Date Blake Lindsey MD [address] [address] PCP - General FAMILY PRACTICE 03/03/19 documented as of this encounter
--- OUTSIDE RECORDS SUMMARY | 2024-07-29 18:13 | XMS_ITS | Encounter Summary ---
Author Organization [facility] Address [address] [place] [address]. [place] [address] [place] [address] Care Team Providers Care Internet Site Designer Name Role Phone Blake Lindsey MD Primary Care Provider [phone] Reason for Referral * Imaging (Routine) - Closed Specialty Diagnoses / Procedures Referred By Contac t Referred To Contact RADIOLOGY Diagnoses Spinal stenosis, cervical region Procedures CT CERV SPINE WO CON Pierre Tompkins MD [address] [place] [address] Dr Mckeon [address] [place] [address] Phone: tel: fax: Referral ID Status Reason Start Date Expiration Date Visits Re quested Visits Authorized [id number] Closed 10/20/2023 10/20/2024 1 1 Reason for Visit * Imaging (Routine) - Closed Specialty Diagnoses / Procedures Referred By Contac t Referred To Contact RADIOLOGY Diagnoses Spinal stenosis, cervical region Procedures CT CERV SPINE WO CON Pierre Tompkins MD [address] [place] [address] Dr Mckeon [address] [place] [address] Phone: tel: fax: Referral ID Status Reason Start Date Expiration Date Visits Re quested Visits Authorized [id number] Closed 10/20/2023 10/20/2024 1 1 Encounter Details Date Type Department Care Team (Latest Contact Info) Description 11/06/2023 2:11 PM CDT - 11/06/2023 11:59 PM CDT Hospital Encounter [facility] [address] [place] [address] Pierre Tompkins MD [address] [facility] [address] Mckeon [address] [place] [address] Discharge Disposition: Home or Self Care (Routine [...] region documented in this encounter Care Teams Internet Site Designer Relationship Specialty Start Date End Date Blake Lindsey MD [address] [address] PCP - General FAMILY PRACTICE 03/03/19 documented as of this encounter
--- OUTSIDE RECORDS SUMMARY | 2024-07-29 18:13 | XMS_ITS | Encounter Summary ---
Author Organization [facility] Address [address] [place] [address]. [place] [address] [place] [address] Care Team Providers Care Greens Keeper Name Role Phone Blake Lindsey MD Primary Care Provider [phone] Reason for Referral * Imaging (Routine) - Closed Specialty Diagnoses / Procedures Referred By Contac t Referred To Contact RADIOLOGY Diagnoses Cervicalgia Procedures MRI CERV SPINE WO CON Amie Gibson NP [facility] [address] [employer] [address] [place] [phone] Phone: tel: fax: Referral ID Status Reason Start Date Expiration Date Visits Re quested Visits Authorized [id number] Closed 06/03/2022 06/03/2023 1 1 PROGRAMMER ANALYST Reason for Visit * Imaging (Routine) - Closed Specialty Diagnoses / Procedures Referred By Contac t Referred To Contact RADIOLOGY Diagnoses Cervicalgia Procedures MRI CERV SPINE WO CON Amie Gibson NP [facility] [address] [place] [phone] Phone: tel: fax: Referral ID Status Reason Start Date Expiration Date Visits Re quested Visits Authorized [id number] Closed 06/03/2022 06/03/2023 1 1 Encounter Details Date Type Department Care Team (Late st Contact Info) Description 06/16/2022 12:45 PM NET PROGRAMMER ANALYST - 06/16/2022 11:59 PM NET PROGRAMMER ANALYST Hospital Encounter [facility] [address] [place] [address] Amie Gibson NP [facility] [address] [facility] [address] [place] [phone] Discharge Disposition: Home or Self Care [...] Coronavirus/COVID-19? No / Unsure 06/16/2022 1:43 PM NET PROGRAMMER ANALYST documented as of this encounter Medications at [...] SPINE WO CON Routine 06/16/2022 2:51 PM NET PROGRAMMER ANALYST Cervicalgia documented in this encounter Results * MRI CERV SPINE WO CON (06/16/2022 2:51 PM NET PROGRAMMER ANALYST) Anatomical Region Laterality Modality Spine Magnetic Resonan ce 06/17/2022 2:44 PM NET PROGRAMMER ANALYST Impressions 06/17/2022 2:51 PM NET PROGRAMMER ANALYST IMPRESSION: 1. Postsurgical and multilevel degenerative changes in the cervical spine, as detailed above. 2. No definite cervical cord signal abnormality, though image quality is somewhat compromised by artifact. Ordered By: AMIE GIBSON Interpreted By: Yves Crook MD, 06/17/2022 2:44 PM Narrative 06/17/2022 2:51 PM NET PROGRAMMER ANALYST DATE: 06/16/2022 2:25 PM INDICATION: Chronic neck [...] multilevel posterior cervical thoracic fusion extending from [id number], the caudal extent of which is incompletely [...] Crook MD, 06/17/2022 2:44 PM Amie Gibson CARBIDE GRINDER MRI Final Result documented in this encounter Visit Diagnoses Diagnosis Cervicalgia documented in this encounter Care Teams Greens Keeper Relationship Specialty Start Date End Date Blake Lindsey MD [address] [place] [address] PCP - General FAMILY PRACTICE 03/03/19 documented as of this encounter
--- OUTSIDE RECORDS SUMMARY | 2024-07-29 18:13 | XMS_ITS | Encounter Summary ---
Author Organization [facility] Address [address] [place] [address]. [place] [address] [place] [address] Care Team Providers Care Pearl Maker Name Role Phone Radu Lindsey MD Primary Care Provider [phone] Reason for Visit * Reason Comments Wound Encounter Details Date Type Department Care Team (Latest Contact Info) Description 02/04/2023 2:41 PM CDT - 02/04/2023 3:49 PM CDT Hospital Encounter [address] [id number] Sisi Pinon, DO [address] [place] [phone] Wound Discharge Disposition: Home or Self [...] Pinon DO - 02/04/2023 2:51 PM CDT [facility]- [place], [place] HISTORICAL INFORMATION Primary Care Doctor: RADU LINDSEY MD Patient information was obtained primarily from the patient, nursing notes. History/Exam limitations: None Provider at Bedside Date/Time Event User Comments 02/04/23 6649 Provider at Bedside Assessing Patient SISI PINON [...] FINGER RT 3V Final Result by User, [id number] (02/04 153) IMAGING STUDIES: XR SECOND FINGER [...] Medication List DO Sisi CHAHAL DO 02/04/23 3579 * Autumn Huang RN - 02/04/2023 2:42 PM CDT Pt to cc from home with c/o R second digit tenderness. Pt reports approx one week ago she went to merchandise pickup/receiving associate a mirror and ended up cutting her [...] Primary documented in this encounter Care Teams Pearl Maker Relationship Specialty Start Date End Date Radu Lindsey MD [address] [place] [address] PCP - General FAMILY PRACTICE 03/03/19 documented as of this encounter
--- OUTSIDE RECORDS SUMMARY | 2024-07-29 18:13 | XMS_ITS | Encounter Summary ---
Author Organization [facility] Address [address] [place] [address]. [place] [address] [place] [address] Care Team Providers Care Composition Molder Name Role Phone Blake Lindsey MD Primary Care Provider [phone] Encounter Details Date Type Department Care Team [...] on filedocumented in this encounter Care Teams Composition Molder Relationship Specialty Start Date End Date Blake Lindsey MD [address] [place] [address] PCP - General FAMILY PRACTICE 03/03/19 documented as of this encounter
--- OUTSIDE RECORDS SUMMARY | 2024-07-29 18:13 | XMS_ITS | Encounter Summary ---
Author Organization [facility] Address [address] [place] [address]. [place] [address] [place] [address] Care Team Providers Care Personnel Adviser Name Role Phone Blake Lindsey MD Primary Care Provider [phone] Encounter Details Date Type Department Care Team [...] documented as of this encounter Care Teams Personnel Adviser Relationship Specialty Start Date End Date Blake Lindsey MD [address] [place] [address] PCP - General FAMILY PRACTICE 03/03/19 documented as of this encounter
--- OUTSIDE RECORDS SUMMARY | 2024-07-29 18:13 | XMS_ITS | Encounter Summary ---
Author Organization [facility] Address [address] [place] [address]. [place] [address] [place] [address] Care Team Providers Care Student Activities Director Name Role Phone Blake Lindsey MD Primary Care Provider [phone] Reason for Referral * Imaging (Routine) - Closed Specialty Diagnoses / Procedures Referred By Contac t Referred To Contact RADIOLOGY Diagnoses Thoracic spine pain Procedures CT THOR SPINE WO CON [place] [address] Phone: tel: Referral ID Status Reason Start Date Expiration Date Visits Re quested Visits Authorized [id number] Closed 08/09/2020 09/08/2021 1 1 RTAKER HELPER * Imaging (Routine) - Closed Specialty Diagnoses / Procedures Referred By Contac t Referred To Contact RADIOLOGY Diagnoses Cervicalgia Procedures CT CERV SPINE WO CON [place] [address] Phone: tel: Referral ID Status Reason Start Date Expiration Date Visits Re quested Visits Authorized [id number] Closed 08/09/2020 09/08/2021 1 1 RTAKER HELPER Reason for Visit * Imaging (Routine) - Closed Specialty Diagnoses / Procedures Referred By Contac t Referred To Contact RADIOLOGY Diagnoses Thoracic spine pain Procedures CT THOR SPINE WO CON Mary Grace Isaac APRN [facility] [place] [address] Phone: tel: Referral ID Status Reason Start Date Expiration Date Visits Re quested Visits Authorized [id number] Closed 08/09/2020 09/08/2021 1 1 Encounter Details Date Type Department Care Team (Latest Contact Info) Description 08/15/2020 11:30 AM UNDERTAKER HELPER - 08/15/2020 11:59 PM UNDERTAKER HELPER Hospital Encounter [facility] [address] [place] [address] Mary Grace Isaac APRN Discharge Disposition: Home [...] COVID-19? No / Unsure 08/15/2020 11:29 AM UNDERTAKER HELPER documented as of this encounter Medications at [...] SPINE WO CON Routine 08/15/2020 11:58 AM UNDERTAKER HELPER Thoracic spine pain CT CERV SPINE WO CON Routine 08/15/2020 11:58 AM UNDERTAKER HELPER Cervicalgia documented in this encounter Results * CT THOR SPINE WO CON (08/15/2020 11:58 AM UNDERTAKER HELPER) Anatomical Region Laterality Modality Spine Computed Tomogra phy 08/15/2020 3:08 PM UNDERTAKER HELPER Impressions 08/15/2020 3:22 PM UNDERTAKER HELPER IMPRESSION: 1. Redemonstration of post surgical changes [...] mm. 4. Cholelithiasis. Narrative 08/15/2020 3:22 PM UNDERTAKER HELPER EXAMINATION: CT cervical and thoracic spine without [...] 11 mm. 4. Cholelithiasis. Mary Grace Isaac PRICE ANALYST CT Final Result * CT CERV SPINE WO CON (08/15/2020 11:58 AM UNDERTAKER HELPER) Anatomical Region Laterality Modality Spine Computed Tomogra phy 08/15/2020 3:08 PM UNDERTAKER HELPER Impressions 08/15/2020 3:22 PM UNDERTAKER HELPER IMPRESSION: 1. Redemonstration of post surgical changes [...] mm. 4. Cholelithiasis. Narrative 08/15/2020 3:22 PM UNDERTAKER HELPER EXAMINATION: CT cervical and thoracic spine without [...] 11 mm. 4. Cholelithiasis. Mary Grace Isaac PRICE ANALYST CT Final Result documented in this encounter Visit Diagnoses Diagnosis Cervicalgia Thoracic spine pain Pain in thoracic spine documented in this encounter Care Teams Student Activities Director Relationship Specialty Start Date End Date Blake Lindsey MD [address] [place] [address] PCP - General FAMILY PRACTICE 03/03/19 documented as of this encounter
--- OUTSIDE RECORDS SUMMARY | 2024-07-29 18:13 | XMS_ITS | Encounter Summary ---
Author Organization [facility] Address [address] [place] [address]. [place] [address] [place] [address] Care Team Providers Care Technician Inventory Specialist Name Role Phone Blake Lindsey MD Primary Care Provider Reason for Referral * Imaging (Routine) - Closed Specialty Diagnoses / Procedures Referred By Contac t Referred To Contact RADIOLOGY Diagnoses Cervical radiculopathy Procedures MRI CERV SPINE WO CON Darrick Rogers DO [address] [place] [address] [place] [address] Phone: tel: fax: Referral ID Status Reason Start Date Expiration Date Visits Re quested Visits Authorized [id number] Closed MRI 12/17/2022 12/18/2023 1 1 Reason for Visit * Imaging (Routine) - Closed Specialty Diagnoses / Procedures Referred By Contac t Referred To Contact RADIOLOGY Diagnoses Cervical radiculopathy Procedures MRI CERV SPINE WO CON Darrick Rogers DO [address] [place] [address] DR NELI [place] [address] [address] Phone: tel: fax: Referral ID Status Reason Start Date Expiration Date Visits Re quested Visits Authorized [id number] Closed MRI 12/17/2022 12/18/2023 1 1 Encounter Details Date Type Department Care Team (Latest Contact Info) Description 01/28/2023 3:00 PM CDT - 01/28/2023 11:59 PM CDT [facility] [address] [place] [address] Darrick Rogers, DO [address] [facility] [place] [address] Discharge Disposition: Home or Self Care (Routine [...] nos documented in this encounter Care Teams Technician Inventory Specialist Relationship Specialty Start Date End Date Blake Lindsey MD [address] [address] PCP - General FAMILY PRACTICE 03/03/19 documented as of this encounter
--- OUTSIDE RECORDS SUMMARY | 2024-07-29 18:13 | XMS_ITS | Encounter Summary ---
Author Organization [facility] Address [address] [place] [address]. [place] [address] [place] [address] Care Team Providers Care Model Artists' Name Role Phone Blake Lindsey MD Primary Care Provider [phone] Encounter Details Date Type Department Care Team [...] COVID-19? No / Unsure 08/15/2020 11:29 AM BEAN SPROUT LABORER documented as of this encounter Plan of Treatment Not on file documented as of this encounter Visit Diagnoses Not on filedocumented in this encounter Care Teams Model Artists' Relationship Specialty Start Date End Date Blake Lindsey MD [address] [place] [address] PCP - General FAMILY PRACTICE 03/03/19 documented as of this encounter
--- OUTSIDE RECORDS SUMMARY | 2024-07-29 18:13 | XMS_ITS | Encounter Summary ---
Author Organization [facility] Address [address] [place] [address]. [place] [address] [place] [address] Care Team Providers Care Box Toe Maker Name Role Phone Blake Lindsey MD Primary Care Provider [phone] Encounter Details Date Type Department Care Team [...] on filedocumented in this encounter Care Teams Box Toe Maker Relationship Specialty Start Date End Date Blake Lindsey MD [address] [place] [address] PCP - General FAMILY PRACTICE 03/03/19 documented as of this encounter
--- OUTSIDE RECORDS SUMMARY | 2024-07-29 18:13 | XMS_ITS | Encounter Summary ---
Author Organization [facility] Address [address] [place] [address]. [place] [address] [place] [address] Care Team Providers Care Entry Level Civil Engineer Name Role Phone Blake Lindsey MD Primary Care Provider [phone] Encounter Details Date Type Department Care Team [...] on filedocumented in this encounter Care Teams Entry Level Civil Engineer Relationship Specialty Start Date End Date Blaek Lindsey MD [address] [place] [address] PCP - General FAMILY PRACTICE 03/03/19 documented as of this encounter
--- OUTSIDE RECORDS SUMMARY | 2024-07-29 18:13 | XMS_ITS | Encounter Summary ---
Author Organization [facility] Address [address] [place] [address]. [place] [address] [place] [address] Care Team Providers Care Auto Heater Mechanic Name Role Phone Blake Lindsey MD Primary Care Provider [phone] Encounter Details Date Type Department Care Team [...] on filedocumented in this encounter Care Teams Auto Heater Mechanic Relationship Specialty Start Date End Date Blaek Lindsey MD [address] [place] [address] PCP - General FAMILY PRACTICE 03/03/19 documented as of this encounter
--- OUTSIDE RECORDS SUMMARY | 2024-07-29 18:14 | XMS_ITS | Encounter Summary ---
Author Organization [facility] Address [address] [place] [address]. [place] [address] [place] [address] Care Team Providers Care Wire Technician Name Role Phone Unavailable Primary Care Provider Unavailabl e Encounter Details Date Type Department Care Team (Late st Contact Info) Description 03/24/[address] [facility] [address] [place] [address] Manasa Ibarra MD Social History Tobacco Use [...]
--- OUTSIDE RECORDS SUMMARY | 2024-07-29 18:14 | XMS_ITS | Encounter Summary ---
Author Organization [facility] Address [address] [place] [address]. [place] [address] [place] [address] Care Team Providers Care Quality Control Chemist Name Role Phone Unavailable Primary Care Provider Unavailabl e Encounter Details Date Type Department Care Team (Latest Contact Info) Description 06/22/2012 Abstract [facility] Medical Group Social History Tobacco [...]
--- OUTSIDE RECORDS SUMMARY | 2024-07-29 18:14 | XMS_ITS | Encounter Summary ---
Author Organization [facility] Address [address] [place] [address]. [place] [address] [place] [address] Care Team Providers Care Pbx Technician Name Role Phone Unavailable Primary Care Provider Unavailabl e Encounter Details Date Type Department Care Team (Latest Contact Info) Description 09/02/2012 Abstract [facility] Medical Group Social History Tobacco [...]
--- OUTSIDE RECORDS SUMMARY | 2024-07-29 18:14 | XMS_ITS | Encounter Summary ---
Author Organization [facility] Address [address] [place] [address]. [place] [address] [place] [address] Care Team Providers Care Clinical Review Nurse Name Role Phone Unavailable Primary Care Provider Unavailabl e Encounter Details Date Type Department Care Team (Latest Contact Info) Description 08/26/2012 Abstract [facility] Medical Group Social History Tobacco Use [...]
--- OUTSIDE RECORDS SUMMARY | 2024-07-29 18:14 | XMS_ITS | Encounter Summary ---
Author Organization [facility] Address [address] [place] [address]. [place] [address] [place] [address] Care Team Providers Care Clinical Laboratory Science Professor Name Role Phone Unavailable Primary Care Provider Unavailabl e Encounter Details Date Type Department Care Team (Late st Contact Info) Description 12/11/1993 Abstract [facility] [address] [place] [address] , Generic Conversion, Social History Tobacco Use [...]
--- OUTSIDE RECORDS SUMMARY | 2024-07-29 18:14 | XMS_ITS | Encounter Summary ---
Author Organization [facility] Address [address] [place] [address]. [place] [address] [place] [address] Care Team Providers Care Asparagus Cutter Name Role Phone Unavailable Primary Care Provider Unavailabl e Encounter Details Date Type Department Care Team (Latest Contact Info) Description 03/24/2012 Abstract [facility] Medical Group Manasa Ibarra MD Social [...] T PO Q 8 H TAT; Therapy: [id number] to 2. Hydrocodone-Acetaminophen 7.5-750 MG Oral Tablet; TK 1 T PO Q 6 TO 8 H PRN P; Therapy: [id number] to 3. TraMADol HCl 50 MG Oral Tablet; TK 1/2 T 25MG PO Q 6 TO 8 H PRN FOR PAIN; Therapy: [id number] to Allergies 1. Amoxicillin TABS Vitals Signs [...] Ibarra M.D.; Mar 24 2012 3:17PM (Author) STOVE SERVICER HELPER * Manasa Ibarra MD - 03/24/2012 2:00 [...] T PO Q 8 H TAT; Therapy: [id number] to 2. Hydrocodone-Acetaminophen 7.5-750 MG Oral Tablet; TK 1 T PO Q 6 TO 8 H PRN P; Therapy: [id number] to 3. TraMADol HCl 50 MG Oral [...] EVERY 4-6 HOURS NEEDED AND DIRECTED; Therapy: [id number] to (Last Rx:[id number]) 2. CMP (Comprehensive Metabolic Profile) Requested for: [id number] 3. Lipid Profile Requested for: [id number] 4. Anti-Nuclear Antibody Screen Requested for: 24Mar2012 5. CBC w/o Diff (Hemogram) Requested for: [id number] 6. CRP Requested for: [id number] 7. ESR Requested for: [id number] 8. HGBA1C (Hemoglobin A1c) Requested for: 24Mar2012 Rash And loss of gum mass, Etiology unclear. It seems to be uncommon. We will do a CBC CMP AURY panel HbA1c ESR CRP, further plan will depend upon the results. Explained to the patient in detail and patient understands it. We will refer her to global ceo and insurance actuary, biopsy of the skin lesions would give us more answers. Signatures Electronically signed by : Manasa Ibarra M.D.; Mar 24 2012 4:18PM (Author) STOVE SERVICER HELPER documented in this encounter Plan of Treatment Not on file documented as of this encounter Visit Diagnoses Not on filedocumented in this encounter
--- OUTSIDE RECORDS SUMMARY | 2024-07-29 18:14 | XMS_ITS | Encounter Summary ---
Author Organization [facility] Address [address] [place] [address]. [place] [address] [place] [address] Care Team Providers Care Obiee Obia Solution Architect Name Role Phone Unavailable Primary Care Provider Unavailabl e Encounter Details Date Type Department Care Team (Late st Contact Info) Description 05/09/[address] [facility] [address] [place] [address] Manasa Ibarra MD Social History Tobacco Use [...]
--- OUTSIDE RECORDS SUMMARY | 2024-07-29 18:14 | XMS_ITS | Encounter Summary ---
Author Organization [facility] Address [address] [place] [address]. [place] [address] [place] [address] Care Team Providers Care Women Designer Name Role Phone Unavailable Primary Care Provider Unavailabl e Encounter Details Date Type Department Care Team (Latest Contact Info) Description 03/25/2012 Abstract [facility] Medical Group Social History Tobacco [...]
--- OUTSIDE RECORDS SUMMARY | 2024-07-29 18:14 | XMS_ITS | Encounter Summary ---
Author Organization [facility] Address [address] [place] [address]. [place] [address] [place] [address] Care Team Providers Care Core Feeder Name Role Phone Unavailable Primary Care Provider Unavailabl e Encounter Details Date Type Department Care Team (Latest Contact Info) Description 07/08/2012 Abstract [facility] Medical Group Manasa Ibarra MD Social History [...]
--- OUTSIDE RECORDS SUMMARY | 2024-07-29 18:14 | XMS_ITS | Encounter Summary ---
Author Organization [facility] Address [address] [place] [address]. [place] [address] [place] [address] Care Team Providers Care Collar Starcher Name Role Phone Unavailable Primary Care Provider Unavailabl e Encounter Details Date Type Department Care Team (Late st Contact Info) Description 10/04/2012 Abstract [facility] [address] [place] [address] [place] [address] [address] Social History Tobacco Use Types [...]
--- OUTSIDE RECORDS SUMMARY | 2024-07-29 18:14 | XMS_ITS | Encounter Summary ---
Author Organization [facility] Address [address] [place] [address]. [place] [address] [place] [address] Care Team Providers Care Wheelchair Driver Name Role Phone Unavailable Primary Care Provider Unavailabl e Encounter Details Date Type Department Care Team (Latest Contact Info) Description 09/17/2012 Abstract [facility] Medical Group Social History Tobacco Use Types [...]
--- OUTSIDE RECORDS SUMMARY | 2024-07-29 18:14 | XMS_ITS | Encounter Summary ---
Author Organization [facility] Address [address] [place] [address]. [place] [address] [place] [address] Care Team Providers Care Gun Repair Clerk Name Role Phone Unavailable Primary Care Provider Unavailabl e Encounter Details Date Type Department Care Team (Late st Contact Info) Description 08/30/2012 Abstract [facility] [address] [place] [address] [place] [address] [address] Social History Tobacco Use Types [...]
--- OUTSIDE RECORDS SUMMARY | 2024-07-29 18:14 | XMS_ITS | Encounter Summary ---
Author Organization [facility] Address [address] [place] [address]. [place] [address] [place] [address] Care Team Providers Care Slurry Man Name Role Phone Unavailable Primary Care Provider Unavailabl e Encounter Details Date Type Department Care Team (Late st Contact Info) Description 10/18/2012 Abstract [facility] [address] [place] [address] [place] [id number] [address] Social History Tobacco Use Types [...]
--- OUTSIDE RECORDS SUMMARY | 2024-07-29 18:14 | XMS_ITS | Encounter Summary ---
Author Organization [facility] Address [address] [place] [address]. [place] [address] [place] [address] Care Team Providers Care Parking Meter Collector Name Role Phone Blake Lindsey MD Primary Care Provider [phone] Reason for Visit * Reason Comments Musculoskeletal Problem Encounter Details Date Type Department Care Team (Late st Contact Info) Description 03/03/2019 4:21 PM CDT - 03/03/2019 9:46 PM CDT Emergency [facility] [place] [address] Lauri Menendez PA-C [address] [place] [address] Musculoskeletal Problem Discharge Disposition: Home or Self [...] through Care Everywhere. * High Potassium Diet (Greek) * Hypokalemia Discharge Instructions (Greek) documented in this encounter Medications at Time [...] Menendez PA-C - 03/03/2019 5:22 PM CDT [place], [place] EMERGENCY DEPARTMENT ENCOUNTER Chief Complaint Chief [...] daily for 10 days. 03/03/19 03/13/19 Yes Luari Menendez PA-C albuterol sulfate HFA 108 (90 [...] sensation intact throughout. 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 strength, no ataxia, heel to miller [...] encounter of 03/03/19 ECG 12 lead Narrative [place] Test Date: 2019-03-03 Pat Name: PARK PETERSON Department: Room: [id number] Gender: Female Manager Inside: danis BAUTISTAB: 1970 Requested By: LAURI MENENDEZ Order Number: [id number] Reading MD: Measurements Intervals [place] Rate: 112 P: 28 OK: 120 QRS: 10 QRSD: 89 T: 32 QT: 334 QTc: 457 Interpretive Statements SINUS TACHYCARDIA ABNORMAL RHYTHM ECG Compared to ECG 02/19/2019 13:08:51 Sinus rhythm no longer present Short OK interval no longer present LABORATORY STUDIES: Results [...] CLEAN CATCH COLOR YELLOW TRANSPARENCY CLEAR Specific [place] (U) 1.016 1.001 - 1.030 U PH [...] Refills: 0 Class: Print Disposition: Discharge Follow-Up: lBake Lindsey MD [address] [place] [address] Call in 2 days FOR RECHECK LAURI [...] date: Expected time: Means of arrival: Comments: [facility] room 21 documented in this encounter [...] PM CDT) 03/03/2019 6:08 PM CDT Narrative [facility] - 03/04/2019 5:44 AM CDT ?[facility] [place] ? [address], [place] ? Test Date: ?2019-03-03 Pat Name: ? PARK PALACIOSRachael ? Department: ? Room: ? [id number] Gender: ? Female ? Manager Inside: ?? smh : ?1970 ? Requested By: LAURI MENENDEZ Order Number: [id number] ? Reading MD: ?? Jayce Cardenas ? Measurements Intervals ?[place] ? Rate: ? 112 ?P: ?28 OK: ? 120 ?QRS: ?10 QRSD: ? 89 ? T: ?32 QT: ? 334 ? QTc: ?457 ? Interpretive Statements SINUS TACHYCARDIA ABNORMAL RHYTHM ECG Compared to ECG 02/19/2019 13:08:51 Sinus rhythm no longer present No ischemic changes Dale Hancock M.D. Procedure Note Jayce Cardenas MD - 03/04/[address] Test Date: 2019-03-03 Pat Name: PARK PETERSON Department: Room: [place] [address] Gender: Female Manager Inside: [facility] : 1970 Requested By: LAURI MENENDEZ Order Number: [id number] Reading MD: Jayce Cardenas Measurements Intervals [place] Rate: 112 P: 28 OK: 120 QRS: 10 QRSD: 89 T: 32 QT: 334 QTc: 457 Interpretive Statements SINUS TACHYCARDIA ABNORMAL RHYTHM ECG Compared to ECG 02/19/2019 13:08:51 Sinus rhythm no longer present No ischemic changes Dale Hancock M.D. us Lauri Menendez PA-C ECG ORDERABLES Final Result [facility] RAD * CULTURE URINE (03/03/2019 5:49 PM CDT) SPEC DESCRIPTION URINE CLEAN CATCH 03/03/2019 6:38 PM CDT [facility] SPECIAL REQUESTS NO SPECIAL REQUEST 03/03/2019 6:38 PM CDT [facility] CULTURE RESULT 10,000-49,000 COL/ML ESCHERICHIA COLI 03/06/2019 9:25 AM CDT [facility] CULTURE RESULT POLYMICROBIAL GROWTH CONSISTENT WITH NORMAL GENITAL EMILY. ?? SUSCEPTIBILITIES NOT ROUTINELY PERFORMED. 03/06/2019 9:25 AM CDT [facility] URINE SPECIMEN OBTAINED BY CLEAN CATCH [...] NEVIN (VITEK) >=16: Resistant Escherichia coli LEVOFLOXACIN NEVIN (VITEK) >=8: Resistant Escherichia coli PIPRACIL/TAZO NEVIN (VITEK) Sensitive Escherichia coli TRIMETH-SULFAMETH. NEVIN (VITEK) >=320: Resistant Escherichia coli TOBRAMYCIN NEVIN (VITEK) >=16: Resistant Escherichia coli AMIKACIN NEVIN (VITEK) 4: Sensitive Lauri Menendez PA-C MICROBIOLOGY - GENERAL ORDERA BLES Final Result [facility] [address] [place] [address], * (ABNORMAL) URINALYSIS (03/03/2019 5:48 PM CDT) SPECIMEN TYPE URINE CLEAN CATCH 03/03/2019 5:47 PM CDT [facility] COLOR (U) YELLOW 03/03/2019 6:33 PM CDT [facility] TRANSPARENCY CLEAR 03/03/2019 6:33 PM CDT [facility] SPECIFIC GRAVITY (U) 1.016 1.001 - 1.030 03/03/2019 6:33 PM T [facility] U PH 5.0 5.0 - 9.0 03/03/2019 6:33 PM T [facility] LEUKOCYTES (U) SMALL(A) NEGATIVE 03/03/2019 6:33 PM T [facility] NITRITES NEGATIVE NEGATIVE 03/03/2019 6:33 PM T [facility] PROTEIN (U) NEGATIVE <30 MG/DL 03/03/2019 6:33 PM T [facility] URINE GLUCOSE NEGATIVE NEGATIVE MG/DL 03/03/2019 6:33 PM T [facility] KETONES MG/DL (U) NEGATIVE NEGATIVE MG/DL 03/03/2019 6:33 PM T [facility] UROBILINOGEN NEGATIVE NEGATIVE MG/DL 03/03/2019 6:33 PM T [facility] BILIRUBIN (U) NEGATIVE NEGATIVE MG/DL 03/03/2019 6:33 PM T [facility] BLOOD (U) NEGATIVE NEGATIVE 03/03/2019 6:33 PM T [facility] CULTURE & SENSITIVITY INDICATED? SPECIMEN SETUP FOR CULTURE 03/03/2019 6:33 PM T [facility] SQUAMOUS EPITHELIALS RARE /LPF 03/03/2019 6:34 PM T [facility] MUCUS RARE /LPF 03/03/2019 6:34 PM T [facility] HYALINE CASTS RARE /LPF 03/03/2019 6:34 PM T [facility] WBC/HPF 11(H) <6 /HPF 03/03/2019 6:34 PM T [facility] RBC/HPF 1 <6 /HPF 03/03/2019 6:34 PM CDT [facility] AMORPHOUS SEDIMENT RARE /HPF 03/03/2019 6:34 PM CDT [facility] URINE SPECIMEN OBTAINED BY CLEAN CATCH PROCEDURE / Unknown 03/03/2019 5:48 PM CDT us Lauri Menendez PA-C URINE ORDERABLES Final Result Performing Organization Address City/[facility]/ZIP Co de Phone Number [facility] [address] [place] [address], [place] [phone] * MAGNESIUM (03/03/2019 4:45 PM CDT) MAGNESIUM 1.8 1.8 - 2.4 MG/DL 03/03/2019 5:30 PM CDT [facility] 03/03/2019 4:45 PM CDT us Lauri Menendez PA-C LABORATORY Final Result Performing Organization Address [facility] Co de Phone Number [facility] [address] [place] [address], [place] [phone] * (ABNORMAL) COMPREHENSIVE METABOLIC PANEL (03/03/2019 4:45 PM CDT) GLUCOSE 153(H) 70 - 99 MG/DL 03/03/2019 5:30 PM CDT [facility] BUN 12 7 - 18 MG/DL 03/03/2019 5:30 PM CDT [facility] CREATININE S/P/B 1.14(H) 0.55 - 1.02 MG/DL 03/03/2019 5:30 PM CDT [facility] SODIUM S/P/B 143 136 - 145 MMOL/L 03/03/2019 5:30 PM CDT [facility] POTASSIUM S/P/B 3.0(LL) 3.5 - 5.1 MMOL/L 03/03/2019 5:30 PM T [facility] Comment: KR CALLED CRITICAL RESULTS AT [id number] TO AND READ BACK BY DIAMOND BARRIGA CHLORIDE S/P/B 108 100 - 108 MMOL/L 03/03/2019 5:30 PM CDT [facility] CO2 23.0 21 - 32 MMOL/L 03/03/2019 5:30 PM T [facility] CALCIUM S/P/B 10.4(H) 8.5 - 10.1 MG/DL 03/03/2019 5:30 PM T [facility] BILIRUBIN TOTAL S/P/B 0.7 0.2 - 1.2 MG/DL 03/03/2019 5:30 PM T [facility] TOTAL PROTEIN S/P/B 7.3 6.4 - 8.2 G/DL 03/03/2019 5:30 PM T [facility] ALBUMIN S/P/B 3.8 3.4 - 5.0 G/DL 03/03/2019 5:30 PM T [facility] AST 38(H) 15 - 37 U/L 03/03/2019 5:30 PM T [facility] ALT 63(H) 14 - 55 U/L 03/03/2019 5:30 PM T [facility] ALKALINE PHOSPHATASE S/P/B 91 50 - 136 U/L 03/03/2019 5:30 PM T [facility] ANION GAP 12.0 5 - 15 MMOL/L 03/03/2019 5:30 PM T [facility] BUN CREATININE RATIO 10.5 6 - 26 03/03/2019 5:30 PM T [facility] A/G RATIO 1.1 1.0 - 2.0 RATIO 03/03/2019 5:30 PM CDT [facility] EGFR NON-AFR. AMER. 56(L) >90 ML/MIN/1.7 3 M2 03/03/2019 5:30 PM CDT [facility] EGFR AFR. AMER. 65(L) >90 ML/MIN/1.7 3 M2 03/03/2019 5:30 PM CDT [facility] Comment: NOTE: eGFR is not calculated for patients <18 years of age. This is an estimated GFR (CKD EPI) and should not be used for calculating drug doses. 03/03/2019 4:45 PM CDT Lauri Menendez PA-C LABORATORY Final Result [facility] [address] [place] [address], * (ABNORMAL) CBC W/DIFF AUTOMATED (03/03/2019 4:45 PM CDT) WBC 11.2(H) 4.5 - 11.0 x10'3/uL 03/03/2019 4:56 PM CDT [facility] RBC 4.84 4.20 - 5.40 x10'6/uL 03/03/2019 4:56 PM CDT [facility] HGB 15.9 12.0 - 16.0 G/DL 03/03/2019 4:56 PM CDT [facility] HCT 44.8 38.0 - 48.0 % 03/03/2019 4:56 PM CDT [facility] MCV 92.6 81.0 - 99.0 FL 03/03/2019 4:56 PM CDT [facility] MCH 32.9(H) 27.0 - 31.0 PG 03/03/2019 4:56 PM CDT [facility] MCHC 35.5 32.0 - 36.0 G/DL 03/03/2019 4:56 PM CDT [facility] RDW 12.6 11.5 - 14.5 % 03/03/2019 4:56 PM CDT [facility] PLT 207 130 - 400 x10'3/uL 03/03/2019 4:56 PM CDT [facility] MPV 8.9(L) 9.3 - 12.2 FL 03/03/2019 4:56 PM CDT [facility] DIFFERENTIAL TYPE AUTOMATED DIFFERENTIAL 03/03/2019 4:56 PM CDT [facility] NEUTROPHILS % 62.9 % 03/03/2019 4:56 PM CDT [facility] LYMPHOCYTES % 27.7 % 03/03/2019 4:56 PM CDT [facility] MONOCYTES % 6.3 % 03/03/2019 4:56 PM CDT [facility] EOSINOPHILS 2.2 % 03/03/2019 4:56 PM CDT [facility] BASOPHILS 0.4 % 03/03/2019 4:56 PM CDT [facility] IMMATURE GRANS % 0.5 % 03/03/20 19 4:56 PM CDT [facility] ABS. NEUTROPHILS TOTAL 7.03 1.80 - 7.70 x10'3/uL 03/03/2019 4:56 PM CDT [facility] ABS. LYMPHOCYTES 3.10 1.00 - 4.80 x10'3/uL 03/03/2019 4:56 PM CDT [facility] ABS. MONOCYTES 0.71 0.24 - 0.86 x10'3/uL 03/03/2019 4:56 PM CDT [facility] ABS. EOSINOPHILS 0.25 0.04 - 0.36 x10'3/uL 03/03/2019 4:56 PM CDT [facility] ABS. BASOPHILS 0.05 0.01 - 0.08 x10'3/uL 03/03/2019 4:56 PM CDT [facility] ABS. IMMATURE GRANULOCYTES 0.06 0.00 - 0.49 x10'3/uL 03/03/2019 4:56 PM CDT [facility] 03/03/2019 4:45 PM CDT us Lauri Menendez PA-C LABORATORY Final Result [facility] [address] [place] [address], [place] [phone] documented in this encounter Visit Diagnoses Diagnosis [...] liter) documented in this encounter Care Teams Parking Meter Collector Relationship Specialty Start Date End Date Blake Lindsey MD [address] [place] [address] PCP - General FAMILY PRACTICE 03/03/19 documented as of this encounter
--- OUTSIDE RECORDS SUMMARY | 2024-07-29 18:14 | XMS_ITS | Encounter Summary ---
Author Organization [facility] Address [address] [place] [address]. [place] [address] [place] [address] Care Team Providers Care Wall Man Name Role Phone None, Provider Primary Care Provider Unavaila ble Reason for Visit * Reason Comments Chest Pain Breathing Problem Encounter Details Date Type Department Care Team (Late st Contact Info) Description 02/19/2019 1:04 PM CDT - 02/19/2019 6:30 PM CDT Emergency [facility] [place] [address] Nathan Dior MD [address] [address] Chest Pain; Breathing Problem Discharge Disposition: Home [...] * Shortness of Breath (Dyspnea) Discharge Instructions (Welsh) documented in this encounter Medications at Time [...] starting 2 days ago. Increased while at [facility]. Patient currently has ear infections and takes antibiotics. * Nathan Dior MD - 02/19/2019 1:14 PM CDT Chief Complaint Chief Complaint Patient presents with ??? Chest Pain ??? Breathing Problem History of Present Illness 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 range feeder used: No Chest Pain Associated symptoms: cough [...] ECG [address] [facility] [address] [place] [address] Test Date: 2019-02-19 Pat Name: PARK ALEJANDRA Department: Room: [place] [address] Gender: Female Certified Appliance Service Technician: : 1970 Requested By: NATHAN DIOR Order Number: [id number] Reading MD: Measurements Intervals [place] Rate: 75 P: 15 LA: 115 QRS: 27 QRSD: 99 T: 28 QT: 359 QTc: 403 Interpretive Statements SINUS RHYTHM WITH SHORT LA INTERVAL No previous ECG available for comparison [...] XR CHEST PORTABLE Final Result by User, [id number] (02/19 7243) SINGLE VIEW OF THE CHEST Clinical history: Chest pain Comparison: None A single view of the chest demonstrates the cardiac silhouette to be within normal limits for size. Starr rods are noted throughout the thoracic spine. The pulmonary vessels are normally distributed. The Lungs are clear. No consolidations or effusions are seen. IMPRESSION: No acute findings Course / Medical Decision Making [facility] Diagnosis management comments: 48-year-old female presents w/ SOB and chest fluttering. Pulse oximetry interpreted by me: 97% on room air. Impression normal. ED Course as of Feb 19 1759 Sun Feb 19, 2019 1357 [place] Heart Score 3 [BH] 1752 EKG normal. [...] <0.015 <0.045 ng/mL. 02/19/2019 5:26 PM CDT [facility] Comment: HIGH DOSES OF BIOTIN MAY INTERFERE WITH THIS TEST RESULT. CORRELATION TO CLINICAL HISTORY AND PRESENTATION RECOMMENDED. 02/19/2019 4:44 PM CDT Nathan Dior MD LABORATORY Final Result [facility] [address] [place] [address], [place] [phone] * XR CHEST PORTABLE (02/19/2019 2:30 PM [...] D DU ng/mL 02/19/2019 1:46 PM CDT [facility] Comment: TESTING PERFORMED ON [employer] TOP 300 ANALYZER. NOTE: RESULTS OF THIS [...] MD LABORATORY Final Result Performing Organization Address [facility]/ZIP Co de Phone Number [facility] [address] [place] [address], [place] [phone] * PROCALCITONIN (PCT) (02/19/2019 1:17 PM CDT) Procalcitonin <0.05 <0.5 NG/ML 02/19/2019 4:24 PM CDT [facility] 02/19/2019 1:17 PM CDT us Nathan Dior MD LABORATORY Final Result [facility] [address] [place] [address], * TROPONIN, QUANT (02/19/2019 1:17 PM CDT) TROPONIN I <0.015 <0.045 ng/mL. 02/19/2019 1:52 PM CDT [facility] Comment: HIGH DOSES OF BIOTIN MAY INTERFERE WITH THIS TEST RESULT. CORRELATION TO CLINICAL HISTORY AND PRESENTATION RECOMMENDED. 02/19/2019 1:17 PM CDT Nathan Dior MD LABORATORY Final Result Performing Organization Address [facility]/State/[facility] Co de Phone Number [facility] [address] [place] [address], * (ABNORMAL) COMPREHENSIVE METABOLIC PANEL (02/19/2019 1:17 PM CDT) GLUCOSE 104(H) 70 - 99 MG/DL 02/19/2019 1:52 PM CDT [facility] BUN 6(L) 7 - 18 MG/DL 02/19/2019 1:52 PM CDT [facility] CREATININE S/P/B 0.74 0.55 - 1.02 MG/DL 02/19/2019 1:52 PM CDT [facility] SODIUM S/P/B 143 136 - 145 MMOL/L 02/19/2019 1:52 PM CDT [facility] POTASSIUM S/P/B 3.3(L) 3.5 - 5.1 MMOL/L 02/19/2019 1:52 PM CDT [facility] CHLORIDE S/P/B 111(H) 100 - 108 MMOL/L 02/19/2019 1:52 PM CDT [facility] CO2 24.6 21 - 32 MMOL/L 02/19/2019 1:52 PM T [facility] CALCIUM S/P/B 9.2 8.5 - 10.1 MG/DL 02/19/2019 1:52 PM T [facility] BILIRUBIN TOTAL S/P/B 0.4 0.2 - 1.2 MG/DL 02/19/2019 1:52 PM T [facility] TOTAL PROTEIN S/P/B 7.1 6.4 - 8.2 G/DL 02/19/2019 1:52 PM T [facility] ALBUMIN S/P/B 3.5 3.4 - 5.0 G/DL 02/19/2019 1:52 PM T [facility] AST 33 15 - 37 U/L 02/19/2019 1:52 PM T [facility] ALT 51 14 - 55 U/L 02/19/2019 1:52 PM T [facility] ALKALINE PHOSPHATASE S/P/B 91 50 - 136 U/L 02/19/2019 1:52 PM T [facility] ANION GAP 7.4 5 - 15 MMOL/L 02/19/2019 1:52 PM T [facility] BUN CREATININE RATIO 8.2 6 - 26 02/19/2019 1:52 PM T [facility] A/G RATIO 1.0 1.0 - 2.0 RATIO 02/19/2019 1:52 PM T [facility] EGFR NON-AFR. AMER. >90 >90 ML/MIN/1.7 3 M2 02/19/2019 1:52 PM T [facility] EGFR AFR. AMER. >90 >90 ML/MIN/1.7 3 M2 02/19/2019 1:52 PM T [facility] Comment: NOTE: eGFR is not calculated for patients <18 years of age. This is an estimated GFR (CKD EPI) and should not be used for calculating drug doses. 02/19/2019 1:17 PM CDT us Nathan Dior MD LABORATORY Final Result [facility] [address] [place] [address], [place] [phone] * (ABNORMAL) CBC W/DIFF AUTOMATED (02/19/2019 1:17 PM CDT) WBC 8.7 4.5 - 11.0 x10'3/uL 02/19/2019 1:32 PM CDT [facility] RBC 4.55 4.20 - 5.40 x10'6/uL 02/19/2019 1:32 PM CDT [facility] HGB 14.6 12.0 - 16.0 G/DL 02/19/2019 1:32 PM CDT [facility] HCT 42.0 38.0 - 48.0 % 02/19/2019 1:32 PM CDT [facility] MCV 92.3 80.0 - 94.0 FL 02/19/2019 1:32 PM CDT [facility] MCH 32.1(H) 27.0 - 31.0 PG 02/19/2019 1:32 PM CDT [facility] MCHC 34.8 32.0 - 36.0 G/DL 02/19/2019 1:32 PM CDT [facility] RDW 12.6 11.5 - 14.5 % 02/19/2019 1:32 PM CDT [facility] PLT 213 130 - 400 x10'3/uL 02/19/2019 1:32 PM CDT [facility] MPV 8.7(L) 9.3 - 12.2 FL 02/19/2019 1:32 PM CDT [facility] DIFFERENTIAL TYPE AUTOMATED DIFFERENTIAL 02/19/2019 1:32 PM CDT [facility] NEUTROPHILS % 60.5 % 02/19/2019 1:32 PM CDT [facility] LYMPHOCYTES % 27.7 % 02/19/2019 1:32 PM CDT [facility] MONOCYTES % 6.3 % 02/19/2019 1:32 PM CDT [facility] EOSINOPHILS 4.6 % 02/19/2019 1:32 PM CDT [facility] BASOPHILS 0.6 % 02/19/2019 1:32 PM CDT [facility] IMMATURE GRANS % 0.3 % 02/20/20 19 1:32 PM CDT [facility] ABS. NEUTROPHILS TOTAL 5.25 1.80 - 7.70 x10'3/uL 02/19/2019 1:32 PM CDT [facility] ABS. LYMPHOCYTES 2.41 1.00 - 4.80 x10'3/uL 02/19/2019 1:32 PM CDT [facility] ABS. MONOCYTES 0.55 0.24 - 0.86 x10'3/uL 02/19/2019 1:32 PM T [facility] ABS. EOSINOPHILS 0.40(H) 0.04 - 0.36 x10'3/uL 02/19/2019 1:32 PM CDT [facility] ABS. BASOPHILS 0.05 0.01 - 0.08 x10'3/uL 02/19/2019 1:32 PM [facility] ABS. IMMATURE GRANULOCYTES 0.03 0.00 - 0.49 x10'3/uL 02/19/2019 1:32 PM [facility] 02/19/2019 1:17 PM CDT us Nathan Dior MD LABORATORY Final Result [facility] [address] [place] [address], * ECG 12 lead (02/19/2019 1:08 PM CDT) 02/19/2019 1:08 PM CDT Narrative [facility] OFMICKY (JAIR) RAD - 02/19/2019 10:59 PM CDT [facility] [address] [facility] ? Test Date: ?2019-02-19 Pat Name: ? PARK ALEJANDRA ? Department: ? Room: ? [id number] Gender: ? Female ? Certified Appliance Service Technician: ?? JH : ?1970 ? Requested By: NATHAN DIOR Order Number: [id number] ? Reading : ?? Ammon Shah ? Measurements Intervals ?[place] ? Rate: ? 75 ? P: ?15 LA: ? 115 ?QRS: ?27 QRSD: ? 99 ? T: ?28 QT: ? 359 ? QTc: ?403 ? Interpretive Statements SINUS RHYTHM WITH SHORT LA INTERVAL No previous ECG available for comparison Procedure Note Ammon Shah MD - 02/19/[address] [facility] [place] [facility] Test Date: 2019-02-19 Pat Name: PARK ALEJANDRA Department: Room: [id number] Gender: Female Certified Appliance Service Technician: : [id number] Requested By: NATHAN DIOR Order Number: [id number] Reading MD: Ammon Shah Measurements Intervals [place] Rate: 75 P: 15 LA: 115 QRS: 27 QRSD: 99 T: 28 QT: 359 QTc: 403 Interpretive Statements SINUS RHYTHM WITH SHORT LA INTERVAL No previous ECG available for comparison us Nathan Dior MD ECG ORDERABLES Final Result [facility] (JAIR) BRISA documented in this encounter Visit Diagnoses Diagnosis Dyspnea- Primary Other dyspnea and respiratory abnormality COPD (chronic obstructive pulmonary disease) ([facility]) Chronic airway obstruction, not elsewhere classified documented [...] RN) documented in this encounter Care Teams Wall Man Relationship Specialty Start Date End Date None, Provider, PCP - General 02/19/19 03/02/19 documented as of this encounter
--- OUTSIDE RECORDS SUMMARY | 2024-07-29 18:14 | XMS_ITS | Encounter Summary ---
Author Organization [facility] Address [address] [place] [address]. [place] [address] [place] [address] Care Team Providers Care Golf Course Mechanic Name Role Phone Unavailable Primary Care Provider Unavailabl e Encounter Details Date Type Department Care Team (Late st Contact Info) Description 10/25/2012 [facility] [address] [place] [address] [place] [id number] [id number] Social History Tobacco Use Types [...] Visit Diagnoses Diagnosis Chronic ulcer of calf ([facility]) Ulcer of calf documented in this encounter
--- OUTSIDE RECORDS SUMMARY | 2024-07-29 18:14 | XMS_ITS | Encounter Summary ---
Author Organization [facility] Address [address] [place] [address]. [place] [address] [place] [address] Care Team Providers Care Truck Car And Bus Cleaner Name Role Phone Unavailable Primary Care Provider Unavailabl e Encounter Details Date Type Department Care Team (Late st Contact Info) Description 05/25/[address] [facility] [address] [place] [address] [place] [address] [address] Social History Tobacco Use Types [...]
--- OUTSIDE RECORDS SUMMARY | 2024-07-29 18:14 | XMS_ITS | Encounter Summary ---
Author Organization [facility] Address [address] [place] [address]. [place] [address] [place] [address] Care Team Providers Care Torch Straightener Name Role Phone Blake Lindsey MD Primary Care Provider [phone] Reason for Referral * Imaging (Routine) - Closed Specialty Diagnoses / Procedures Referred By Contac t Referred To Contact RADIOLOGY Diagnoses Pain in right ankle Procedures MRI ANKLE RT WO CON Shelia Browning NP [address] [place] [address] Phone: tel: fax: [place] [address] Phone: tel: Referral ID Status Reason Start Date Expiration Date Visits Re quested Visits Authorized [id number] Closed 03/01/2020 03/31/2021 1 1 Reason for Visit * Imaging (Routine) - Closed Specialty Diagnoses / Procedures Referred By Contac t Referred To Contact RADIOLOGY Diagnoses Pain in right ankle Procedures MRI ANKLE RT WO CON Shelia Browning NP [address] [place] [address] Phone: tel: fax: [facility] [address] [place] [address] Phone: tel: Referral ID Status Reason Start Date Expiration Date Visits Re quested Visits Authorized [id number] Closed 03/01/2020 03/31/2021 1 1 Encounter Details Date Type Department Care Team (Late st Contact Info) Description 03/08/2020 10:43 AM CDT - 03/08/2020 11:59 PM CDT Hospital Encounter [facility] Open MRI [address] [place] [address] Shelia Browning, INTERLIBRARY LOAN SERVICES LIBRARIAN [address] [place] [address] Discharge Disposition: Home or Self [...] calcaneal spur. 6. Mild osteoarthritis. Shelia Browning INTERLIBRARY LOAN SERVICES LIBRARIAN MRI Final Resu lt documented in this encounter Visit Diagnoses Diagnosis Pain in right ankle Pain in joint, ankle and foot documented in this encounter Care Teams Torch Straightener Relationship Specialty Start Date End Date Blake Lindsey MD [address] [address] PCP - General FAMILY PRACTICE 03/03/19 documented as of this encounter
--- OUTSIDE RECORDS SUMMARY | 2024-07-29 18:14 | XMS_ITS | Encounter Summary ---
Author Organization [facility] Address [address] [place] [address]. [place] [address] [place] [address] Care Team Providers Care Merchandise Examiner Name Role Phone Unavailable Primary Care Provider Unavailabl e Encounter Details Date Type Department Care Team (Latest Contact Info) Description 08/23/2012 Abstract [facility] Medical Group Social History Tobacco [...]
--- OUTSIDE RECORDS SUMMARY | 2024-07-29 18:14 | XMS_ITS | Encounter Summary ---
Author Organization [facility] Address [address] [place] [address]. [place] [address] [place] [address] Care Team Providers Care Filtering Machine Tender Helper Name Role Phone Blake Lindsey MD Primary Care Provider [phone] Encounter Details Date Type Department Care Team (Late st Contact Info) Description 02/23/2020 12:10 PM CDT - 02/23/2020 12:50 PM CDT Hospital Encounter [facility] [address] [place], [place] [address] Shelia Browning, STRUCTURAL STEEL WORKER HELPER [address] [place] [address] Discharge Disposition: Home or Self [...] foot documented in this encounter Care Teams Filtering Machine Tender Helper Relationship Specialty Start Date End Date Blake Lindsey MD [address] [place], [place] [id number] PCP - General FAMILY PRACTICE 03/03/19 documented as of this encounter
--- OUTSIDE RECORDS SUMMARY | 2024-07-29 18:14 | XMS_ITS | Encounter Summary ---
Author Organization [facility] Address [address] [place] [address]. [place] [address] [place] [address] Care Team Providers Care Expansion Envelope Maker Hand Name Role Phone Blake Lindsey MD Primary Care Provider [phone] Reason for Referral * Imaging (Routine) - Closed Specialty Diagnoses / Procedures Referred By Contac t Referred To Contact RADIOLOGY Diagnoses Lumbago Procedures CT THOR SPINE WO CON Castillo Maldonado MD [address] [place] [address] Phone: tel: fax: Referral ID Status Reason Start Date Expiration Date Visits Re quested Visits Authorized [id number] Closed 09/05/2019 10/04/2020 1 1 TRONIC SECURITY TECHNICIAN * Imaging (Routine) - Closed Specialty Diagnoses / Procedures Referred By Contac t Referred To Contact RADIOLOGY Diagnoses Lumbago Procedures CT CERV SPINE WO CON LTD Castillo Maldonado MD [address] [place] [address] Phone: tel: fax: Referral ID Status Reason Start Date Expiration Date Visits Re quested Visits Authorized [id number] Closed 09/05/2019 10/04/2020 1 1 TRONIC SECURITY TECHNICIAN Reason for Visit * Imaging (Routine) - Closed Specialty Diagnoses / Procedures Referred By Ariel t Referred To Contact RADIOLOGY Diagnoses Lumbago Procedures CT CERV SPINE WO CON LTD Castillo Maldonado MD [address] [place] [address] Phone: tel: fax: Referral ID Status Reason Start Date Expiration Date Visits Re quested Visits Authorized [id number] Closed 09/05/2019 10/04/2020 1 1 Encounter Details Date Type Department Care Team (Latest Contact Info) Description 09/07/2019 2:00 PM ELECTRONIC SECURITY TECHNICIAN - 09/07/2019 11:59 PM ELECTRONIC SECURITY TECHNICIAN Hospital Encounter [facility] [address] [place] [address] Castillo Maldonado MD [address] [facility] [address] [place] [address] Discharge Disposition: Home or Self Care (Routine [...] WO CON LTD Routine 09/07/2019 2:30 PM ELECTRONIC SECURITY TECHNICIAN Lumbago CT THOR SPINE WO CON Routine 09/07/2019 2:30 PM ELECTRONIC SECURITY TECHNICIAN Lumbago documented in this encounter Results * CT THOR SPINE WO CON (09/07/2019 2:30 PM ELECTRONIC SECURITY TECHNICIAN) Anatomical Region Laterality Modality Spine Computed Tomogra phy 09/08/2019 4:56 PM ELECTRONIC SECURITY TECHNICIAN Impressions 09/08/2019 5:02 PM ELECTRONIC SECURITY TECHNICIAN =====IMPRESSION:===== Postoperative changes spine. Exam is limited due to streak artifact from metallic rods and screws. Compression deformity of T6 of uncertain chronicity. Narrative 09/08/2019 5:02 PM ELECTRONIC SECURITY TECHNICIAN Examination: CT scan of the thoracic spine [...] Result * CT CERV SPINE WO CON [facility] (09/07/2019 2:30 PM ELECTRONIC SECURITY TECHNICIAN) Anatomical Region Laterality Modality Spine Computed Tomogra phy 09/08/2019 4:41 PM ELECTRONIC SECURITY TECHNICIAN Impressions 09/08/2019 4:56 PM ELECTRONIC SECURITY TECHNICIAN =====IMPRESSION:===== ?? 1. ??Postoperative changes cervical spine. 2. ??No definite or obvious thecal sac narrowing is noted. Narrative 09/08/2019 4:56 PM ELECTRONIC SECURITY TECHNICIAN EXAMINATION: CT Cervical Spine without contrast. REASON [...] from C4 through T2 is noted. The [id number] incompletely visualized on present study. Posterior fixation [...] Lumbago documented in this encounter Care Teams Expansion Envelope Maker Hand Relationship Specialty Start Date End Date Blake Lindsey MD [address] [address] PCP - General FAMILY PRACTICE 03/03/19 documented as of this encounter
--- OUTSIDE RECORDS SUMMARY | 2024-07-29 18:14 | XMS_ITS | Encounter Summary ---
Author Organization [facility] Address [address] [place] [address]. [place] [address] [place] [address] Care Team Providers Care Charge Account Clerk Name Role Phone Unavailable Primary Care Provider Unavailabl e Encounter Details Date Type Department Care Team (Latest Contact Info) Description 05/04/2012 Abstract [facility] Medical Group Manasa Ibarra [...]
--- OUTSIDE RECORDS SUMMARY | 2024-07-29 18:14 | XMS_ITS | Encounter Summary ---
Author Organization [facility] Address [facility] [place] [address] [place] [address] Care Team Providers Care Wood Boatbuilder Name Role Phone Unavailable Primary Care Provider Unavailabl e Encounter Details Date Type Department Care Team (Latest Contact Info) Description 05/06/2012 Abstract [facility] Medical Group Social History Tobacco [...] OVER FAX FOR PT. SHE WORKS AT [employer] [facility] AND DR PALACIOS GAVE HER THIS AT HER WORK FOR TEETH PAIN #90 WITH NO REFILLS TRIC REFRIGERATOR SERVICER documented in this encounter Plan of Treatment Not on file documented as of this encounter Visit Diagnoses Not on filedocumented in this encounter
--- OUTSIDE RECORDS SUMMARY | 2024-07-29 18:14 | XMS_ITS | Encounter Summary ---
Author Organization [facility] Address [facility] [place] [address] [place] [address] Care Team Providers Care Upholsterer Assembly Line Name Role Phone Unavailable Primary Care Provider Unavailabl e Encounter Details Date Type Department Care Team (Latest Contact Info) Description 07/20/2012 Abstract [facility] Medical Group Faye Amaral D, APNP [address] [place] [address] [place] [address] Social History Tobacco Use Types Packs/Day [...] 2012 8:41 AM TASK EDITED Called into [facility] and pt informed eg,rma Plan 1. SUMAtriptan Succinate 50 MG Oral Tablet; TAKE 1 TABLET FOR MIGRAINE RELIEF. MAY REPEAT EVERY 2 HOURS. MAX 200MG/DAY; Therapy: [id number] to (Last Rx:[id number]) OR FINISHING MACHINE OPERATOR * Manasa Ibarra MD - 07/20/2012 8:27 [...] informed and would like rx sent to [facility]. eg,rma Plan 1. SUMAtriptan Succinate 50 MG Oral Tablet; TAKE 1 TABLET FOR MIGRAINE RELIEF. MAY REPEAT EVERY 2 HOURS. MAX 200MG/DAY; Therapy: [id number] to (Last Rx:[id number]) OR FINISHING MACHINE OPERATOR documented in this encounter Plan of Treatment Not on file documented as of this encounter Visit Diagnoses Not on filedocumented in this encounter
--- OUTSIDE RECORDS SUMMARY | 2024-07-29 18:14 | XMS_ITS | Encounter Summary ---
Author Organization [facility] Address [address] [place] [address]. [place] [address] [place] [address] Care Team Providers Care Pediatric Clinical Dietician Name Role Phone Unavailable Primary Care Provider Unavailabl e Encounter Details Date Type Department Care Team (Latest Contact Info) Description 06/02/2012 Abstract [facility] Medical Group Social History Tobacco [...]
--- OUTSIDE RECORDS SUMMARY | 2024-07-29 18:14 | XMS_ITS | Encounter Summary ---
Author Organization [facility] Address [address] [place] [address]. [place] [address] [place] [address] Care Team Providers Care Rn Transfer Name Role Phone Unavailable Primary Care Provider Unavailabl e Encounter Details Date Type Department Care Team (Latest Contact Info) Description 08/19/2012 Abstract [facility] Medical Group Social History Tobacco Use [...]
--- OUTSIDE RECORDS SUMMARY | 2024-07-29 18:14 | XMS_ITS | Encounter Summary ---
Author Organization [facility] Address [address] [place] [address]. [place] [address] [place] [address] Care Team Providers Care Bow Maker Machine Tender Name Role Phone Unavailable Primary Care Provider Unavailabl e Encounter Details Date Type Department Care Team (Latest Contact Info) Description 05/26/2012 Abstract [facility] Medical Group Social History Tobacco Use [...]
--- OUTSIDE RECORDS SUMMARY | 2024-07-29 18:14 | XMS_ITS | Encounter Summary ---
Author Organization [facility] Address [address] [place] [address]. [place] [address] [place] [address] Care Team Providers Care Conveyor Man Name Role Phone Unavailable Primary Care Provider Unavailabl e Encounter Details Date Type Department Care Team (Latest Contact Info) Description 05/11/2012 Abstract [facility] Medical Group Manasa Ibarra MD Social [...]
--- OUTSIDE RECORDS SUMMARY | 2024-07-29 18:14 | XMS_ITS | Encounter Summary ---
Author Organization [facility] Address [address] [place] [address]. [place] [address] [place] [address] Care Team Providers Care Retail Department Manager Name Role Phone Unavailable Primary Care Provider Unavailabl e Encounter Details Date Type Department Care Team (Latest Contact Info) Description 09/07/2012 Abstract [facility] Medical Group Social History Tobacco Use Types [...]
--- OUTSIDE RECORDS SUMMARY | 2024-07-29 18:14 | XMS_ITS | Encounter Summary ---
Author Organization [facility] Address [address] [place] [address]. [place] [address] [place] [address] Care Team Providers Care Manipulative Therapy Specialist Name Role Phone Unavailable Primary Care Provider Unavailabl e Encounter Details Date Type Department Care Team (Latest Contact Info) Description 03/29/2012 Abstract [facility] Medical Group Manasa Ibarra MD Social History [...]
--- OUTSIDE RECORDS SUMMARY | 2024-07-29 18:14 | XMS_ITS | Encounter Summary ---
Author Organization [facility] Address [address] [place] [address]. [place] [address] [place] [address] Care Team Providers Care It Auditor Name Role Phone Unavailable Primary Care Provider Unavailabl e Encounter Details Date Type Department Care Team (Late st Contact Info) Description 05/25/2012 Abstract [facility] Medical Group General Surgery Man [facility] [address] [facility], [address] [place] [address] [place] [address] [facility] [address] [place] [address] Social History Tobacco Use Types [...] IT CLEARED UP WITH ANTIBIOTICS. WORKS AT [employer] AND HAD 2 CULTURES DONE THERE. PCP [...] Tablet; TK 1 T PO D; Therapy: [id number] to 2. Erythromycin Base 500 MG Oral Tablet; TK 1 T PO Q 8 H TAT; Therapy: [id number] to 3. Proventil HFA 108 (90 Base) MCG/ACT Inhalation Aerosol Solution; INHALE 1-2 PUFFS EVERY 4-6 HOURS NEEDED AND DIRECTED; Therapy: [id number] to (Last Rx:[id number]) 4. TraMADol HCl 50 MG Oral Tablet; TK 1/2 T 25MG PO Q 6 TO 8 H PRN FOR PAIN; Therapy: [id number] to Allergies 1. Amoxicillin TABS Vitals Vital [...] Flores M.D.; May 25 2012 11:55AM (Author) ING AND VENTILATING TENDER documented in this encounter Plan of Treatment Not on file documented as of this encounter Visit Diagnoses Not on filedocumented in this encounter
--- OUTSIDE RECORDS SUMMARY | 2024-07-29 18:14 | XMS_ITS | Encounter Summary ---
Author Organization [facility] Address [address] [place] [address]. [place] [address] [place] [address] Care Team Providers Care Marble Polisher Hand Name Role Phone Unavailable Primary Care Provider Unavailabl e Encounter Details Date Type Department Care Team (Late st Contact Info) Description 09/23/2012 Abstract [facility] [address] [place] [address] [place] [address] [address] Social History Tobacco Use Types [...]
--- OUTSIDE RECORDS SUMMARY | 2024-07-29 18:14 | XMS_ITS | Encounter Summary ---
Author Organization [facility] Address [address] [place] [address]. [place] [address] [place] [address] Care Team Providers Care Patent Attorney Name Role Phone Unavailable Primary Care Provider Unavailabl e Encounter Details Date Type Department Care Team (Late st Contact Info) Description 05/25/[address] [facility] [address] [place] [address] [place] [address] [address] Social History Tobacco Use Types [...]
--- OUTSIDE RECORDS SUMMARY | 2024-07-29 18:14 | XMS_ITS | Encounter Summary ---
Author Organization [facility] Address [address] [place] [address]. [place] [address] [place] [address] Care Team Providers Care Sales Program Manager Name Role Phone Blake Lindsey MD Primary Care Provider [phone] Reason for Visit * Reason Comments Respiratory Symptoms Encounter Details Date Type Department Care Team (Latest Contact Info) Description 04/09/2020 1:05 PM CDT - 04/09/2020 1:32 PM CDT Hospital Encounter [facility] [place] [address] [place] [address] Annabella Valdes, [facility]- Respiratory Symptoms Discharge Disposition: Home or Self [...] Instructions * Discharge Instructions* Annabella Wilkinson Lucio, SPANISH PROFESSOR-BC - 04/09/2020 1:25 PM CDT Your symptoms indicate that you may have coronavirus disease 2019 (COVID-19). Unfortunately, you donot meet the current requirements by the [place] Department of Public Health (IDPH) or the [...] least 20 seconds, especially after going to [facility]; before eating; and after blowing your nose, coughing, or sneezing. o If soap and water are not readily available, use an alcohol-based hand wellness nurse rn with at least 60% alcohol. Always wash [...] be tested for COVID-19, please go to [facility] as you requested. Please self quarantine until [...] Care Everywhere. * Skin Abrasions Discharge Instructions (Andorran) * Seasonal Allergies Discharge Instructions (Andorran) * Cough Discharge Instructions, Adult (Andorran) * Coronavirus Disease 2019 (COVID-19) Discharge Instructions ([place]orran) documented in this encounter Medications at Time [...] this encounter ED Notes * Annabella Valdes, SPANISH PROFESSOR-BC - 04/09/2020 1:26 PM CDT History Chief [...] Asthma ??? COPD (chronic obstructive pulmonary disease) ([facility]) ??? Hodgkin's disease ([facility]) ??? PTSD (post-traumatic stress disorder) Prior to Admission medications Medication Sig Start Date End Date Taking? Authorizing Provider albuterol (2.5 MG/3ML) 0.083% nebulizer solution Take 3 mLs (2.5 mg total) by nebulization every 4 (four) hours as needed for Wheezing. 04/09/20 Yes Annabella F Lucio, SPANISH PROFESSOR-BC albuterol sulfate HFA 108 (90 Base) MCG/ACT inhaler Inhale 2 puffs into the lungs every 4 (four) hours as needed for Wheezing or Shortness of breath (cough). 04/09/20 Yes Annabella Valdes SPANISH PROFESSOR-BC cetirizine 10 MG tablet Take 1 tablet (10 mg total) by mouth daily for 30 days. 04/09/20 05/09/20 Yes Annabella F Lucio, SPANISH PROFESSOR-BC fluticasone propionate (FLONASE) 50 MCG/ACT nasal spray 1 spray by Each Nostril route 2 (two) timesa day. 04/09/20 Yes Annabella F Lucio SPANISH PROFESSOR-BC HYDROcodone-acetaminophen 10-325 MG tablet Take 1 tablet by mouth every 6 (six) hours as needed forPain. Yes Doc Abstract mupirocin 2 % ointment Apply topically 2 (two) times daily for 7 days. Apply to right foot 04/09/20 04/16/20 Yes Annabella F Lucio SPANISH PROFESSOR-BC ALPRAZolam 0.5 MG tablet Take 0.5 mg [...] Wheezing., Starting Wed04/09/2020, Eprescribe Class: Eprescribe Pharmacy: [facility] [address] [place] [address] [address] [facility] [address] (Ph #: [phone]) cetirizine 10 MG tablet Take 1 tablet (10 mg total) by mouth daily for 30 days., Starting Wed04/09/2020, Until Kathleen 05/09/2020, Eprescribe Class: Eprescribe Pharmacy: [facility] [address] [place], [place] [address] [address] [facility] [address] (Ph #: [phone]) fluticasone propionate (FLONASE) 50 MCG/ACT nasal spray 1 spray by Each Nostril route 2 (two) timesa day., Starting Wed04/09/2020, Eprescribe Class: aisle411escribe Pharmacy: [facility] [address] [place] [address] [address] [facility] [address] (Ph #: [phone]) mupirocin 2 % ointment Apply topically 2 (two) times daily for 7 days. Apply to right foot, Starting Wed04/09/2020, Until Wed04/16/2020, Eprescribe Class: Eprescribe Pharmacy: [facility] [address] [place], [place] [address] [address] [facility] [address] (Ph #: [phone]) MDM Number of Diagnoses or Management Options Abrasion of right foot, initial encounter: Allergic rhinitis: Cough: Patient Progress Patient progress: stable SNOMED CT(R) 1. Cough COUGH 2. Allergic rhinitis ALLERGIC RHINITIS 3. Abrasion of right foot, initial encounter ABRASION OF FOOT Disposition: Discharge Follow up instructions: Blake Lindsey MD [address] [place] [address] Call in 2 days If symptoms worsen STANFORD CHOU Please excuse any grammatical or spelling errors as this chart was documented using [employer], a dictation software. STANFORD Chou 04/09/20 1333 [...] encounter documented in this encounter Care Teams Sales Program Manager Relationship Specialty Start Date End Date Blake Lindsey MD [address] [address] PCP - General FAMILY PRACTICE 03/03/19 documented as of this encounter
--- OUTSIDE RECORDS SUMMARY | 2024-07-29 18:14 | XMS_ITS | Encounter Summary ---
Author Organization [facility] Address [address] [place] [address]. [place] [address] [place] [address] Care Team Providers Care Disabilities Caregiver Name Role Phone Blake Lindsey MD Primary Care Provider [phone] Reason for Visit * Reason Comments Eye Problem Encounter Details Date Type Department Care Team (Latest Contact Info) Description 02/23/2020 12:51 PM CDT - 02/23/2020 1:32 PM CDT Hospital Encounter [place] [address] Charlie Galdamez PA [address] [place], [place] [address] Eye Problem Discharge Disposition: Home or Self [...] * Foreign Body in Eye Discharge Instructions (Italian) documented in this encounter Medications at Time [...] 3.5 g, Refills: 0 Class: Eprescribe Pharmacy: [id number] [address] [facility] [address] (Ph #: [phone]) Disposition: Discharge Follow-Up: Dale Vasquez MD [address] [address] Schedule an appointment as soon as possible for a visit in 3 days As needed ELOINA Mascorro 02/23/2020 ELOINA Mascorro 02/23/20 1335 Cosigned by Lauri Fonseca MD at 02/23/2020 [...] RN) documented in this encounter Care Teams Disabilities Caregiver Relationship Specialty Start Date End Date Blake Lindsey MD [address] [address] PCP - General FAMILY PRACTICE 03/03/19 documented as of this encounter
--- OUTSIDE RECORDS SUMMARY | 2024-07-29 18:14 | XMS_ITS | Encounter Summary ---
Author Organization [facility] Address [address] [place] [address]. [place] [address] [place] [address] Care Team Providers Care Belling Machine Operator Name Role Phone Unavailable Primary Care Provider Unavailabl e Encounter Details Date Type Department Care Team (Late st Contact Info) Description 08/24/2012 Abstract [facility] [address] [place] [address] [place] [address] [facility] [address] [place] [address] Social History Tobacco Use Types [...]
--- OUTSIDE RECORDS SUMMARY | 2024-07-29 18:14 | XMS_ITS | Encounter Summary ---
Author Organization [facility] Address [address] [place] [address]. [place] [address] [place] [address] Care Team Providers Care Meal Grinder Tender Name Role Phone Blake Lindsey MD [...] on filedocumented in this encounter Care Teams Meal Grinder Tender Relationship Specialty Start Date End Date Blake Lindsey MD [address] [place] [address] PCP - General FAMILY PRACTICE 03/03/19 documented as of this encounter
--- OUTSIDE RECORDS SUMMARY | 2024-07-29 18:14 | XMS_ITS | Encounter Summary ---
Author Organization [facility] Address [address] [place] [address]. [place] [address] [place] [address] Care Team Providers Care Sweatband Maker Name Role Phone Blake Lindsey MD Primary Care Provider [phone] Encounter Details Date Type Department Care Team (Late st Contact Info) Description 09/04/2019 1:21 PM BREWERY TECHNICIAN - 09/04/2019 11:59 PM [facility] Hospital Encounter [facility] Diagnostic Imaging [address], [place] [id number] Shelia Browning, SUPPLY CRIB ATTENDANT [address] [place] [address] Discharge Disposition: Home or Self [...] HIP LT 2V Routine 09/04/2019 1:40 PM BREWERY TECHNICIAN Left hip pain documented in this encounter Results * XR HIP LT 2V (09/04/2019 1:40 PM BREWERY TECHNICIAN) Anatomical Region Laterality Modality Hip Radiographic Jonna ging 09/05/2019 11:1 8 AM BREWERY TECHNICIAN Impressions 09/05/2019 11:19 AM BREWERY TECHNICIAN IMPRESSION:===== 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 Interpreted By: Toy He MD, 09/05/2019 11:18 AM Narrative 09/05/2019 11:19 AM BREWERY TECHNICIAN Examination: Left hip radiographs Exam date/time: 09/04/2019 [...] He MD, 09/05/2019 11:18 AM Shelia Browning SUPPLY CRIB ATTENDANT GENERAL IMAGING Final Resu lt documented in this encounter Visit Diagnoses Diagnosis Left hip pain Pain in joint, pelvic region and thigh documented in this encounter Care Teams Sweatband Maker Relationship Specialty Start Date End Date Blake Lindsey MD [address] [place] [address] PCP - General FAMILY PRACTICE 03/03/19 documented as of this encounter
--- OUTSIDE RECORDS SUMMARY | 2024-07-29 18:14 | XMS_ITS | Encounter Summary ---
Author Organization [facility] Address [address] [place] [address]. [place] [address] [place] [address] Care Team Providers Care Ict Help Desk Officer Name Role Phone Unavailable Primary Care Provider Unavailabl e Encounter Details Date Type Department Care Team (Late st Contact Info) Description 05/06/2012 Abstract [facility] Diagnostic [facility] [address] [place] [address] Manasa Ibarra MD Social History Tobacco Use [...]
--- OUTSIDE RECORDS SUMMARY | 2024-07-29 18:14 | XMS_ITS | Encounter Summary ---
Author Organization [facility] Address [address] [place] [address]. [place] [address] [place] [address] Care Team Providers Care Seeing Eye Dog Teacher Name Role Phone Unavailable Primary Care Provider Unavailabl e Encounter Details Date Type Department Care Team (Late st Contact Info) Description 08/12/2012 Abstract [facility] [address] [place] [address] [place] [address] [address] Social History Tobacco Use Types [...]
--- OUTSIDE RECORDS SUMMARY | 2024-07-29 18:14 | XMS_ITS | Encounter Summary ---
Author Organization [facility] Address [address] [place] [address]. [place] [address] [place] [address] Care Team Providers Care Oven Equipment Repairer Name Role Phone Blake Lindsey MD Primary Care Provider [phone] Encounter Details Date Type Department Care Team [...] filedocumented in this encounter Care Teams Oven Equipment Repairer Relationship Specialty Start Date End Date Blake Lindesy MD [address] [place] [address] PCP - General FAMILY PRACTICE 03/03/19 documented as of this encounter
--- OUTSIDE RECORDS SUMMARY | 2024-07-29 18:14 | XMS_ITS | Encounter Summary ---
Author Organization [facility] Address [address] [place] [address]. [place] [address] [place] [address] Care Team Providers Care Hospitality Host Name Role Phone Unavailable Primary Care Provider Unavailabl e Encounter Details Date Type Department Care Team (Latest Contact Info) Description 05/09/2012 Abstract [facility] Medical Group Manasa Ibarra [...]
--- OUTSIDE RECORDS SUMMARY | 2024-07-29 18:14 | XMS_ITS | Encounter Summary ---
Author Organization [facility] Address [address] [place] [address]. [place] [address] [place] [address] Care Team Providers Care Eeg Technologist Name Role Phone Unavailable Primary Care Provider Unavailabl e Encounter Details Date Type Department Care Team (Latest Contact Info) Description 05/02/2012 Abstract [facility] Manasa Ibarra MD [...]
--- OUTSIDE RECORDS SUMMARY | 2024-07-29 18:14 | XMS_ITS | Encounter Summary ---
Author Organization [facility] Address [address] [place] [address]. [place] [address] [place] [address] Care Team Providers Care Tray Packer Name Role Phone Unavailable Primary Care Provider Unavailabl e Encounter Details Date Type Department Care Team (Late st Contact Info) Description 05/31/2012 Abstract [facility] Medical Group General Surgery [facility] [address] [facility], [address] [place] [address] [place] [address] [facility] [address] [place] [address] Social History Tobacco Use Types [...] Tablet; TK 1 T PO D; Therapy: [id number] to 2. Erythromycin Base 500 MG Oral Tablet; TK 1 T PO Q 8 H TAT; Therapy: [id number] to 3. Proventil HFA 108 (90 Base) MCG/ACT Inhalation Aerosol Solution; INHALE 1-2 PUFFS EVERY 4-6 HOURS NEEDED AND DIRECTED; Therapy: [id number] to (Last Rx:[id number]) 4. TraMADol HCl 50 MG Oral Tablet; TK 1/2 T 25MG PO Q 6 TO 8 H PRN FOR PAIN; Therapy: [id number] to Allergies 1. Amoxicillin TABS 2. Penicillins [...] Flores M.D.; May 31 2012 1:30PM (Author) POWER CONSULTANT documented in this encounter Plan of Treatment Not on file documented as of this encounter Visit Diagnoses Not on filedocumented in this encounter
--- OUTSIDE RECORDS SUMMARY | 2024-07-29 18:14 | XMS_ITS | Encounter Summary ---
Author Organization [facility] Address [address] [place] [address]. [place] [address] [place] [address] Care Team Providers Care Board Mixer Tender Name Role Phone Unavailable Primary Care Provider Unavailabl e Encounter Details Date Type Department Care Team (Late st Contact Info) Description 08/19/2012 Abstract [facility] [address] [place] [address] [place] [address] [address] Social History Tobacco Use Types [...]
--- OUTSIDE RECORDS SUMMARY | 2024-07-29 18:14 | XMS_ITS | Encounter Summary ---
Author Organization [facility] Address [address] [place] [address]. [place] [address] [place] [address] Care Team Providers Care Automatic Pinsetter Mechanic Name Role Phone Blake Lindsey MD Primary Care Provider [phone] Encounter Details Date Type Department Care Team [...] on filedocumented in this encounter Care Teams Automatic Pinsetter Mechanic Relationship Specialty Start Date End Date Blake Lindsey MD [address] [place] [address] PCP - General FAMILY PRACTICE 03/03/19 documented as of this encounter
--- OUTSIDE RECORDS SUMMARY | 2024-07-29 18:14 | XMS_ITS | Encounter Summary ---
Author Organization [facility] Address [address] [place] [address]. [place] [address] [place] [address] Care Team Providers Care Blade Worker Name Role Phone Unavailable Primary Care Provider Unavailabl e Encounter Details Date Type Department Care Team (Latest Contact Info) Description 05/11/2013 Abstract [facility] [place] [address] [address] Social History Tobacco Use Types [...] WATTS MD: EYAD LOUIE MD ?? ACCT: [id number] ?? ADMIT/SERVICE DATE: 08/24/12 DISCHARGE DATE: ?? : 1970 PT TYPE: REG CLI ?? SEX: F ORD SITE: [facility] ? STUDY DATE REPORT # PROCEDURE CODE PROCEDURE ?? 08/24/12 [id number] DOPARTEXTC US DOPPLER ARTERIAL EXTREM CMP ? EXTORDERID ? [id number] ? CHART DOCUMENT ? DIVISION OF RADIOLOGY ? ACCESSION # ?EXAM DATE ? EXAM DESCRIPTION ?? [id number] ?08/24/2012 ?US DOPPLER ARTERIAL EXTREM CMP ? [...] ??4:19 P ?? JOB NO: ?DOC NO: ??[id number] ?? CC: ?EYAD LOUIE JR, MD ? Procedure Note Pinky Mercado MD - 05/25/2018 [facility] ORDERING MD: EYAD LOUIE MD ACCT: [id number] ADMIT/SERVICE DATE: 08/24/12 DISCHARGE DATE: : 1970 PT TYPE: REG CLI SEX: F ORD SITE: [facility] STUDY DATE REPORT # PROCEDURE CODE PROCEDURE 08/24/12 [id number] DOPARTEXTC US DOPPLER ARTERIAL EXTREM CMP EXTORDERID [id number] CHART DOCUMENT DIVISION OF RADIOLOGY ACCESSION # EXAM DATE EXAM DESCRIPTION [id number] 08/24/2012 US DOPPLER ARTERIAL EXTREM CMP IMAGING [...] 05/11/2013 4:19 P JOB NO: DOC NO: [id number] CC: EYAD LOUIE JR, MD Eyad Louie MD SCANNING Final Result documented in this encounter Visit Diagnoses Not on filedocumented in this encounter
--- OUTSIDE RECORDS SUMMARY | 2024-07-29 18:14 | XMS_ITS | Encounter Summary ---
Author Organization [facility] Address [address] [place] [address]. [place] [address] [place] [address] Care Team Providers Care Band Salvager Name Role Phone Unavailable Primary Care Provider [...] be seen today. Pt did not have [employer] IDc[employer] card. Pt will fax in to us on 05/19/12 Current Meds 1. Diclofenac Sodium 75 MG Oral Tablet Delayed Release; TAKE 1 TABLET 3 times daily PRN TEETH PAIN; Therapy: 00Evf1563 to (Evaluate:05Jun2012); Last Rx:[id number] 2. Erythromycin Base [...] Ibarra M.D.; May 18 2012 12:37PM (Author) LANE PILOT HELPER * Manasa Ibarra MD - 05/18/2012 11:30 [...] EVERY 4-6 HOURS NEEDED AND DIRECTED; Therapy: [id number] to (Last Rx:[id number]) 2. XR CHEST 2 VIEW Requested for: [...] Ibarra M.D.; May 18 2012 12:38PM (Author) LANE PILOT HELPER documented in this encounter Plan of Treatment Not on file documented as of this encounter Visit Diagnoses Not on filedocumented in this encounter
--- OUTSIDE RECORDS SUMMARY | 2024-07-29 18:14 | XMS_ITS | Encounter Summary ---
Author Organization [facility] Address [address] [place] [address]. [place] [address] [place] [address] Care Team Providers Care Regulatory Consultant Name Role Phone Unavailable Primary Care Provider Unavailabl e Encounter Details Date Type Department Care Team (Late st Contact Info) Description 09/06/2012 Abstract [facility] [address] [place] [address] [place] [address] [address] Social History Tobacco Use Types [...]
--- OUTSIDE RECORDS SUMMARY | 2024-07-29 18:17 | XMS_ITS | Encounter Summary ---
Author Organization [facility] Address [address] [place] [address] Care Team Providers Care Traffic Warehouse Supervisor Name Role Phone Unavailable Primary Care Provider Unavailabl e Encounter Details Date Type Department Care Team (Late st Contact Info) Description 07/16/2020 1:00 PM AUTOMATIC I THREADING MACHINE FEEDER Rapid Evaluation [place] [facility] Mobile Testing [address] [place] [address] Social History Tobacco Use Types Packs/Day Years Used Date Smoking Tobacco: Never Assessed Comments Unknown Sex and Gender Information Value Date Recorded Sex Assigned at Not on file Legal Sex Female 12:45 PM AUTOMATIC I THREADING MACHINE FEEDER Gender Identity Not on file Sexual Orientation Not on file documented as of this encounter Plan of Treatment Not on file documented as of this encounter Visit Diagnoses Not on filedocumented in this encounter
--- OUTSIDE RECORDS SUMMARY | 2024-07-29 18:17 | XMS_ITS | Encounter Summary ---
Author Organization [facility] Address [address] [place] [address] Care Team Providers Care Charcoal Kiln Burner Name Role Phone Unavailable Primary Care Provider Unavailabl e Encounter Details Date Type Department Care Team (Late st Contact Info) Description 07/16/2020 Lab Requisition [facility] Mobile Testing [address] [place] [address] [place] [address] [place] [address] Social History Tobacco Use Types Packs/Day Years Used Date Smoking Tobacco: Never Assessed Comments Unknown Sex and Gender Information Value Date Recorded Sex Assigned at Not on file Legal Sex Female 12:45 PM TECHNICAL SOLUTIONS DIRECTOR Gender Identity Not on file Sexual Orientation Not on file documented as of this encounter Plan of Treatment Not on file documented as of this encounter Procedures Procedure Name Priority Date/Time Associated Diagnosis Comments SARS-COV-2 PCR [facility] ONLY Routine 07/16/2020 12:49 PM TECHNICAL SOLUTIONS DIRECTOR documented in this encounter Visit Diagnoses Not on filedocumented in this encounter
--- OUTSIDE RECORDS SUMMARY | 2024-07-29 18:17 | XMS_ITS | Clinical Summary ---
Author Organization [facility] Address [address] [place] [address] Phone Care Team Providers Care Broke Worker Name Role Phone Unavailable Primary Care Provider Unavailabl e Social History Tobacco Use Types Packs/Day Years Used Date Smoking Tobacco: Never Assessed Comments Unknown Sex and Gender Information Value Date Recorded Sex Assigned at Not on file Legal Sex Female 12:45 PM DIRECTOR OF DANCE Gender Identity Not on file Sexual Orientation [...]
== END 2024-07-22 14:06 | disposition home or self-care (01) ==
PROVIDERS: Emergency Provider Nurse Practitioner Family; PCP Family Medicine
DX: J06.9 Acute upper respiratory infection, unspecified (principal); B97.4 Respiratory syncytial virus as the cause of diseases classified elsewhere; J98.11 Atelectasis; Z87.891 Personal history of nicotine dependence; J44.9 Chronic obstructive pulmonary disease, unspecified; Z85.828 Personal history of other malignant neoplasm of skin
CPT/HCPCS: 71046; 99213; G0463

== ENCOUNTER 2024-08-01 13:39 | Outpatient (CLI) | payer MEDICARE, SELFPAY ==
[2024-08-01 14:00] LABS: Basophils Absolute Auto 0.1 K/mm3 (0.0-0.1); Basophils Percent Auto 0.8 % (0.2-1.2); Eosinophils Absolute Auto 0.5 K/mm3 (0-0.3); Eosinophils Percent Auto 5.2 % (0-4.4); Hematocrit 45.8 % (37.0-47.0); Hemoglobin 15.7 g/dL (12.0-15.0); Immature Granulocyte Absolute 0.09 K/mm3 (0.00-0.031); Lymphocytes Absolute Auto 2.47 K/mm3 (0.9-3.2); Mean Corpuscular HGB Conc 34.3 g/dl (32-36); Mean Corpuscular Hemoglobin 32.2 pg (26-34); Mean Platelet Volume 8.2 fl (7.4-10.4); Monocytes Absolute Auto 0.6 K/mm3 (0.1-0.6); Neutrophils Absolute Auto 5.1 K/mm3 (1.3-6.7); Platelet Count Result 218 k/mm3 (150-375); Red Blood Count 4.87 M/mm3 (4.2-5.4); Red Cell Distribution Width 12.4 % (11.5-14.5); White Blood Count 8.8 K/mm3 (4.5-10.0)
[2024-08-01 14:15] LABS: Anion Gap 6 mmol/L (4-12); Blood Urea Nitrogen 13 mg/dL (7-17); Calcium 9.2 mg/dL (8.4-10.2); Carbon Dioxide 25 mmol/L (22-30); Chloride 107 mmol/L (98-107); Estimated Glomerular Filt Rate > 60; Glucose 165 mg/dL (65-110); Potassium 3.7 mmol/L (3.4-5.0); Sodium 138 mmol/L (137-145)
[2024-08-01 14:19] LABS: NT Pro B Type Natriuretic Pept 44 pg/mL (19.9-100)
== END 2024-08-01 13:40 | disposition home or self-care (01) ==
PROVIDERS: PCP Family Medicine; Visit Provider Physician Assistant Medical
DX: I51.7 Cardiomegaly (principal)
CPT/HCPCS: 36415; 80048; 83880; 84443; 85025

== ENCOUNTER 2024-09-01 17:55 | Emergency (ER) | payer MEDICARE, MEDICAID, SELFPAY ==
--- NOTE | ~2024-09-01 | XR_ITS ---
EXAMINATION: XR chest 2V DATE: 09/01/2024 18:40 INDICATION: Cough. Shortness of breath. TECHNIQUE: Frontal and lateral views of the chest were obtained. COMPARISON: Chest 2 views 07/22/2024 FINDINGS: There is no pneumonia, pleural effusion, or pneumothorax. The heart size is normal. There a re changes of posterior fusion procedure in thoracic spine. IMPRESSION: 1. No acute cardiopulmonary disease. Reviewed, dictated and finalized at location [facility] [employer]
--- OUTSIDE RECORDS SUMMARY | 2024-09-01 17:57 | XMS_ITS | Referral Summary ---
Author Organization [facility] Address [address] [place] [address] Care Team Providers Care Master Automotive Glass Technician Name Role Phone Blake Lindsey MD Primary Care Provider [phone] Source Comments [facility],non-owned Affiliates and Associated Physician Practices is amultiple site organization consisting of ambulatory clinics and hospital sitesin [place], [place], [place] and [place]. This disclosure is being madepursuant to the Care Everywhere program and may not contain all information available regarding this patient. Last updated 18.[facility] Encounters Date Type Department Care Team Description 08/01/2024 Telephone [facility] - Pulmonology [address] [place] [address], [place] [address] Chapito Ortega MD from Last 3 Months Allergies Active Allergy [...] Migraine Headache 30 tablet 01/12/2019 Active NYSTOP [id number] UNIT/GM powder Apply 1 Dose to affected [...] 08/22/2020 Assessment & Plan (08/22/2020 10:50 AM FIRE WARDEN): Left sided parotid nodule - previously noted [...] 0 Assessment & Plan (07/11/2020 2:03 PM FIRE WARDEN): Advised patient to use heat to the [...] 07/11/2020 Assessment & Plan (08/22/2020 10:46 AM FIRE WARDEN): Continue with previous recommendations. Patient states she has been compliant. Follow up as needed Assessment & Plan (07/11/2020 1:57 PM FIRE WARDEN): Patient states she has a history of [...] ML (IIV4) 04/05/2019 PNEUMOCOCCAL PPSV23 10/30/2015 PNEUMOCOCCAL PPV VACCINE 08/24/2013 Pneumococcal Pcv13 Conj 07/08/2021 TDAP [...] concentrating/remembering/making decisions? No 01/11/2019 Plan of Treatment Upcoming Encounters Date Type Department Care Team (Late st Contact Info) Description 10/31/2024 4:00 PM CDT Office Visit [facility] - Pulmonology [address] [place] [address] Chapito Ortega MD [address] [place] [address] Procedures Procedure Name Priority Date/Time Associated Diagnosis Comments HIV-1 HIV-2 ANTIBODY + HIV P24 AG PANEL Routine 04/11/2024 4:[address] of the chest COMPREHENSIVE METABOLIC PANEL STAT 06/09/2022 3:46 PM FIRE WARDEN Hodgkin lymphoma, unspecified Hodgkin lymphoma type, unspecified body region (HCC) URINE DRUG SCREEN IMMUNOASSAY STAT 01/11/2019 3:03 PM CDT MAMMO BILAT DIAGNOSTIC Routine 9 2:20 PM CDT Disorder of breast Breast lump HEPATITIS C AB SCREEN RFLX NAAT QUANT Timed 04/18/2017 3:51 AM CDT from Last 3 Months or Most Recently Relevant to Health Maintenance Results * HIV-1 HIV-2 ANTIBODY + HIV P24 AG PANEL (04/11/2024 4:52 PM CDT) [facility] HIV Antigen/Antibod y 1 & 2 Non-reacti ve Non-react teena 04/11/2024 6:04 PM CDT [facility] Comment:No Laboratory eviden ce of HIV infection. Blood BLOOD SPECIMEN / Unknown Lab Venipuncture / Unknown 04/11/2024 4:52 PM CDT 04/11/2024 5:32 PM CDT Don Manuel MD LAB - CHEMISTRY CHRISTOPHER DE LA GAR[facility] Organization Address City/State/ZIP Co de Phone Number [facility] [address] [place] [address], [facility] [phone] * (ABNORMAL) COMPREHENSIVE METABOLIC PANEL (06/09/2022 3:46 PM FIRE WARDEN) [facility] BUN 12 7 - 26 mg/dL 06/09/2022 4:29 PM [facility] Creatinine 0.66 0.56 - 0.96 mg/dL 06/09/2022 4:29 PM [facility] Sodium 140 136 - 145 mmol/L 06/09/2022 4:29 PM [facility] Potassium 3.7 3.5 - 4.5 mmol/L 06/09/2022 4:29 PM [facility] Chloride 111(H) 98 - 107 mmol/L 06/09/2022 4:29 PM [facility] CO2 21(L) 22 - 29 mmol/L [...] Lab Venipuncture / Unknown 06/09/2022 3:46 PM FIRE WARDEN 06/09/2022 4:02 PM [facility] Ashish Peralta MD LAB - CHEMISTRY CHRISTOPHER DE LA GAR[facility] Organization Address City/State/ZIP Co de Phone Number [facility] [address] [place] [address], [place] [phone] * (ABNORMAL) DRUG SCREEN TOX URINE PANEL (01/11/2019 3:03 PM CDT) Amphetamines Screen Urine Negative Negative : < 1000 ng/mL 01/11/2019 3:33 PM [facility] Barbiturates Screen Urine Negative Negative : < 200 ng/mL 01/11/2019 3:33 PM [facility] Benzodiazepine Screen Urine Negative Negative : < 200 ng/mL 01/11/2019 3:33 PM [facility] Opiates Urine Negative Negative : < 300 ng/mL 01/11/2019 3:33 PM [facility] Cocaine Metabolites Urine Negative Negative : < 300 ng/mL 01/11/2019 3:33 PM [facility] Phencyclidine Screen Urine Negative Negative : < 25 ng/ml 01/11/2019 3:33 PM [facility] Cannabinoids Screen Urine Positive(A) Negative : <50 ng/mL 01/11/2019 3:33 PM [facility] Comment: Positive urine cannabinoids (THC) screening results should be confirmed by another generally accepted non-immunological method such as gas chromatography or mass spectrometry. ? Methadone Screen Urine Negative Negative : < 300 ng/mL 01/11/2019 3:33 PM [facility] Urine URINE / Unknown Collection / Unknown 01/11/2019 3:03 PM CDT 01/11/2019 3:10 PM T [facility] - 01/11/2019 3:33 PM [facility] The Urine Toxicology Screening Panel does not screen for Propoxyphene, Meprobamate, Carisoprodol, Trazodone, yylk-jfn-meafpil medications and/or volatiles (Acetone, Isopropanol, Methanol or Ethylene Glycol). Ethanol, Salicylate, Acetaminophen, Tricyclic Antidepressants and several therapeutic drugs may be individually assayed in serum or plasma specimen. Toxicology testing by the [facility] is an aid to medical diagnosis and treatment of patients. No documented chain of custody was maintained. Results are intended to be used for clinical purposes only. ? Kain Wellington MD LAB - URINE CHEMISTR Y ORDERABLES [facility] [address] [place] [address], [facility] [phone] * MAMMO BILAT DIAGNOSTIC (11/28/2018 2:20 PM [...] sonography and digital palpation was performed by quality analyst/technical writer and physician throughout the inferior left breast. [...] Hepatitis C Antibody Non-react teena Non-reac tive [facility] Comment: Hepatitis C Antibody screen indicates [...] LAB - CHEMISTRY CHRISTOPHER DE LA GARZA [facility] [address] [phone] from Last 3 Months or Most Recently Relevant to Health Maintenance Advance Directives * Full Code (Latest Code Status on File) Date Activated Date Inactivated Comments 01/11/2019 7:38 PM 01/12/2019 3:03 PM Care Teams Master Automotive Glass Technician Relationship Specialty Start Date End Date Blake Lindsey MD [address] [place] [address] PCP - General 05/20/16
--- OUTSIDE RECORDS SUMMARY | 2024-09-01 17:57 | XMS_ITS | Encounter Summary ---
Author Organization [facility] Address [address] [place] [address] Care Team Providers Care Windows Desktop Engineer Name Role Phone Blake Lindsey MD Primary Care Provider [phone] Reason for Visit * Reason Onset Date Comments Appointment 06/09/2022 Encounter Details Date Type Department Care Team (Late st Contact Info) Description 06/09/2022 Telephone [facility] [address] [place] [address] Stephanie Cardona MD [address] [place] [address] Appointment Social History Tobacco Use [...] to be seen for Basal cell adenocarcinoma SFER ENGINEER documented in this encounter Plan of Treatment Upcoming Encounters Date Type Department Care Team (Late st Contact Info) Description 10/31/2024 4:00 PM CDT Office Visit [facility] - Pulmonology [address] [facility], [place] [address] Chapito Ortega MD [address] [place] [address] documented as of this encounter Visit Diagnoses Not on filedocumented in this encounter Care Teams Windows Desktop Engineer Relationship Specialty Start Date End Date Blake Lindsey MD [address] [place] [address] PCP - General 05/20/16 documented as of this encounter
--- OUTSIDE RECORDS SUMMARY | 2024-09-01 17:57 | XMS_ITS | Clinical Summary ---
Author Organization [facility] Address [address] [place] [address] Care Team Providers Care Commodities Manager Name Role Phone Blake Lindsey MD Primary Care Provider [phone] Source Comments [facility],non-owned Affiliates and Associated Physician Practices is amultiple site organization consisting of ambulatory clinics and hospital sitesin [place], [place], [place]. This disclosure is being madepursuant to the Care Everywhere program and may not contain all information available regarding this patient. Last updated 18.[facility] Allergies Active Allergy Reactions Criticality Noted Date [...] Migraine Headache 30 tablet 01/12/2019 Active NYSTOP [id number] UNIT/GM powder Apply 1 Dose to affected [...] 08/22/2020 Assessment & Plan (08/22/2020 10:50 AM BANBURY MIXER OPERATOR): Left sided parotid nodule - previously [...] 0 Assessment & Plan (07/11/2020 2:03 PM BANBURY MIXER OPERATOR): Advised patient to use heat to [...] 07/11/2020 Assessment & Plan (08/22/2020 10:46 AM BANBURY MIXER OPERATOR): Continue with previous recommendations. Patient states she has been compliant. Follow up as needed Assessment & Plan (07/11/2020 1:57 PM BANBURY MIXER OPERATOR): Patient states she has a history [...] 08/01/2024 Telephone [facility] - Pulmonology [address] [facility] [place] [address] Chapito Ortega MD from Last 3 Months Immunizations Name Administration [...] 04/11/2024 3:41 PM CDT Plan of Treatment Upcoming Encounters Date Type Department Care Team (Late st Contact Info) Description 10/31/2024 4:00 PM CDT Office Visit [facility] - Pulmonology [address] [facility], [facility] [place] [address] Chapito Ortega MD [address] [place] [address] Health Maintenance Due Date Last Done Comments [...] - Moderna risk series) 05/28/2021 04/30/2021, 03/31/2021 INFLUENZA VACCINE (#1) 2024 1, 04/05/2019, 04/05/2019, Additional history exists DEPRESSION SCREENING 08/02/2024 SCREENING FOR DIABETES 06/09/2025 2, 01/27/2022, 06/05/2021, Additional history exists PNEUMOCOCCAL VACCINE 50+ (4 of 4 - PCV20 or PCV21) 07/08/2026 07/08/2021, 10/30/2015, 08/24/2013 DTAP/TDAP/TD VACCINES (2 - Td or Tdap) 02/04/2033 02/04/2023 HEPATITIS C SCREENING Completed 04/18/2017, 013 HIV SCREENING Completed 04/11/2024, 11/03/2012 HIB VACCINE Aged Out No longer eligi ble based on patient's age to complete this topic HPV VACCINE Aged Out No longer eligi ble based on patient's age to complete this topic MENINGOCOCCAL (Group B) VACCINE Aged Out No longer eligible based on patient's age to complete this topic MENINGOCOCCAL VACCINE Aged Out No gabriela karan eligible based on patient's age to complete this topic Procedures Procedure Name Priority Date/Time Associated Diagnosis Comments HIV-1 HIV-2 ANTIBODY + HIV P24 AG PANEL Routine 04/11/2024 4:[address] of the chest COMPREHENSIVE METABOLIC PANEL STAT 06/09/2022 3:46 PM BANBURY MIXER OPERATOR Hodgkin lymphoma, unspecified Hodgkin lymphoma type, unspecified [...] ve Non-react teena 04/11/2024 6:04 PM CDT [facility] Comment:No Laboratory eviden ce of HIV infection. Blood BLOOD SPECIMEN / Unknown Lab Venipuncture / Unknown 04/11/2024 4:52 PM CDT 04/11/2024 5:32 PM CDT Don Manuel MD LAB - CHEMISTRY CHRISTOPHER DE LA GARZA [facility] Organization Address City/State/ZIP Co de Phone Number [facility] [address] [place] [phone], [facility] [phone] * (ABNORMAL) COMPREHENSIVE METABOLIC PANEL (06/09/2022 3:46 PM BANBURY MIXER OPERATOR) Pathologist [facility] BUN 12 7 - 26 mg/dL 06/09/2022 4:29 PM [facility] Creatinine 0.66 0.56 - 0.96 mg/dL 06/09/2022 4:29 PM [facility] Sodium 140 136 - 145 mmol/L 06/09/2022 4:29 PM [facility] Potassium 3.7 3.5 - 4.5 mmol/L 06/09/2022 4:29 PM [facility] Chloride 111(H) 98 - 107 mmol/L 06/09/2022 4:29 PM [facility] CO2 21(L) 22 - 29 mmol/L 06/09/2022 4:29 PM [facility] Glucose 115 70 - 115 mg/dL 06/09/2022 4:29 PM [facility] Calcium 9.9 8.4 - 10.2 mg/dL 06/09/2022 4:29 PM [facility] Protein Total 7.7 6.0 - 8.3 g/dL 06/09/2022 4:29 PM [facility] Albumin 4.0 3.4 - 5.0 g/dL 06/09/2022 4:29 PM [facility] Bilirubin Total 0.7 0.2 - 1.2 mg/dL 06/09/2022 4:29 PM [facility] Alkaline Phosphatase 116 40 - 150 U/L 06/09/2022 4:29 PM [facility] ALT 16 5 - 55 U/L 06/09/2022 4:29 PM [facility] AST 16 5 - 34 U/L 06/09/2022 4:29 PM [facility] Anion Gap 12 8 - 18 06/09/2022 4:29 PM [facility] BUN/Creatinine Ratio 18 7 - 23 06/09/2022 4:29 PM [facility] Osmolality Calculated 291 270 - 300 mOsm/kg 06/09/2022 4:29 PM [facility] Albumin/Globulin Ratio 1.1 1.1 - 2.3 06/09/2022 4:29 PM [facility] eGFR by CKD-EPI >90 >=90 mL/min/1.7 3 m2 06/09/2022 4:29 PM [facility] Blood BLOOD SPECIMEN / Unknown Lab Venipuncture / Unknown 06/09/2022 3:46 PM BANBURY MIXER OPERATOR 06/09/2022 4:02 PM BANBURY MIXER OPERATOR Ashish Peralta MD LAB - CHEMISTRY CHRISTOPHER DE LA GARZA [facility] Organization Address [facility]/State/[facility] Co de Phone Number [facility] [address] [place] [phone] [phone] * (ABNORMAL) DRUG SCREEN TOX URINE PANEL (01/11/2019 3:03 PM CDT) Pathologist [facility] Amphetamines Screen Urine Negative Negative : < 1000 ng/mL 01/11/2019 3:33 PM T [facility] Barbiturates Screen Urine Negative Negative : < 200 ng/mL 01/11/2019 3:33 PM [facility] Benzodiazepine Screen Urine Negative Negative : < 200 ng/mL 01/11/2019 3:33 PM [facility] Opiates Urine Negative Negative : < 300 ng/mL 01/11/2019 3:33 PM [facility] Cocaine Metabolites Urine Negative Negative : < 300 ng/mL 01/11/2019 3:33 PM [facility] Phencyclidine Screen Urine Negative Negative : < 25 ng/ml 01/11/2019 3:33 PM [facility] Cannabinoids Screen Urine Positive(A) Negative : <50 ng/mL 01/11/2019 3:33 PM [facility] Comment: Positive urine cannabinoids (THC) screening results should be confirmed by another generally accepted non-immunological method such as gas chromatography or mass spectrometry. ? Methadone Screen Urine Negative Negative : < 300 ng/mL 01/11/2019 3:33 PM [facility] Urine URINE / Unknown Collection / Unknown 01/11/2019 3:03 PM CDT 01/11/2019 3:[address] [facility] - 01/11/2019 3:33 PM T The Urine Toxicology Screening Panel does not screen for Propoxyphene, Meprobamate, Carisoprodol, Trazodone, [id number] medications and/or volatiles (Acetone, Isopropanol, Methanol or Ethylene Glycol). Ethanol, Salicylate, Acetaminophen, Tricyclic Antidepressants and several therapeutic drugs may be individually assayed in serum or plasma specimen. Toxicology testing by the [facility] is an aid to medical diagnosis and treatment of patients. No documented chain of custody was maintained. Results are intended to be used for clinical purposes only. ? Kain Wellington MD LAB - [place] [address], [facility] [phone] * MAMMO BILAT DIAGNOSTIC (11/28/2018 2:20 PM [...] sonography and digital palpation was performed by caregiver services home and physician throughout the inferior left breast. [...] Hepatitis C Antibody Non-react teena Non-reac tive [facility] Comment: Hepatitis C Antibody screen [...] LAB - CHEMISTRY CHRISTOPHER DE LA GARZA [facility] [address] [phone] from Last 3 Months or Most Recently Relevant to Health Maintenance Advance Directives * Full Code (Latest Code Status on File) Date Activated Date Inactivated Comments 01/11/2019 7:38 PM 01/12/2019 3:03 PM Care Teams Commodities Manager Relationship Specialty Start Date End Date Blake Lindsey MD [address] [place] [address] PCP - General 05/20/16
--- OUTSIDE RECORDS SUMMARY | 2024-09-01 17:57 | XMS_ITS | Encounter Summary ---
Author Organization [facility] Address [address] [facility] [place] [address] Care Team Providers Care Brass Instrument Repair Technician Name Role Phone Blake Lindsey MD Primary Care Provider [phone] Encounter Details Date Type Department Care Team (Late st Contact Info) Description 08/01/2024 Telephone [facility] - [facility] [address] [place] [address] Chapito Ortega MD [address] [place] [address] Social History Tobacco Use Types Packs/Day Years [...] encounter Miscellaneous Notes * Telephone Encounter - Meera Hernandez - 08/01/2024 2:11 PM CST Current Provider: Dr. Chapito Ortega Reason for Call: Ms. Lakeisha Alejandra missed her 07/11/24 appt due to family issue. Now would like urgent appt having issues w/ bronchitus, pneumonia last 3 weeks, SOB, stated or Wednesday appt would work for her. Patient Call Back Number: [phone] RAL OFFICE REPAIRER documented in this encounter Plan of Treatment Upcoming Encounters Date Type Department Care Team (Late st Contact Info) Description 10/31/2024 4:00 PM CDT Office Visit [facility] - Pul[facility]ology [address] [facility] [place] [address] Chapito Ortega MD [address] [place] [address] documented as of this encounter Visit Diagnoses Not on filedocumented in this encounter Care Teams Brass Instrument Repair Technician Relationship Specialty Start Date End Date Blake Lindsey MD [address] [place] [address] PCP - General 05/20/16 documented as of this encounter
--- OUTSIDE RECORDS SUMMARY | 2024-09-01 17:57 | XMS_ITS | Encounter Summary ---
Author Organization [facility] Address [address] [facility] [place] [address] Care Team Providers Care Care Associate Name Role Phone Blake Lindsey MD Primary Care Provider [phone] Reason for Visit * Reason Onset Date Comments Results 10/05/2022 Encounter Details Date Type Department Care Team (Late st Contact Info) Description 10/05/2022 Telephone [facility] [address] [place] [address] Jaun Mascorro MD [address] [place] [address] Results Social History Tobacco Use [...] Please call patient with results of biopsy. RUMENT TECHNICIAN APPRENTICE documented in this encounter Plan of Treatment Upcoming Encounters Date Type Department Care Team (Late st Contact Info) Description 10/31/2024 4:00 PM CDT Office Visit [facility] - Pul[facility]ology [address] [facility] [place] [place] [address] Chapito Ortega MD [address] [place] [address] documented as of this encounter Visit Diagnoses Not on filedocumented in this encounter Care Teams Care Associate Relationship Specialty Start Date End Date Blake Lindsey MD [address] [place] [address] PCP - General 05/20/16 documented as of this encounter
--- OUTSIDE RECORDS SUMMARY | 2024-09-01 17:58 | XMS_ITS | Clinical Summary ---
Author Organization [facility] Address [address] [place] [address]. [place] [address] [place] [address] Care Team Providers Care Trimmer Operator Three Knife Name Role Phone Blake Lindsey MD Primary Care Provider [phone] Allergies Active Allergy Reactions Criticality Noted Date [...] patient's age to complete this topic Meningococcal B Vaccine Aged Out No l onger eligible based on patient's age to complete this topic Meningococcal Vaccine Aged Out No gabriela karan eligible based on patient's age to complete this topic RSV Immunizations Under 20 Months Aged Out No longer eligible based on patient's age to complete this topic Insurance MEDICARE MEDICAID Care Teams Trimmer Operator Three Knife Relationship Specialty Start Date End Date Blake Lindsey MD [address] [address] PCP - General FAMILY PRACTICE 03/03/19
--- OUTSIDE RECORDS SUMMARY | 2024-09-01 17:59 | XMS_ITS ---
Author Organization [facility] Address [address] [facility] [place] [address] Care Team Providers Care Furnace Feeder Name Role Phone Blake Lindsey MD Primary Care Provider [phone] Active Problems Problem Noted Date Diagnosed Date Inflamed seborrheic keratosis 03/02/2023 Actinic keratosis 03/02/2023 Neoplasm of uncertain behavior of skin 3 History of basal cell carcinoma (BCC) 10/03/2022 Multiple benign melanocytic nevi of upper and lower extremities and trunk 10/03/2022 Lentigines 10/03/2022 Seborrheic keratosis 10/03/2022 Chronic, continuous use of opioids 07/18/2021 Parotid nodule 08/22/2020 Assessment & Plan (08/22/2020 10:50 AM CHANGE MANAGEMENT ADMINISTRATOR): Left sided parotid nodule - previously noted [...] 0 Assessment & Plan (07/11/2020 2:03 PM CHANGE MANAGEMENT ADMINISTRATOR): Advised patient to use heat to the [...] 07/11/2020 Assessment & Plan (08/22/2020 10:46 AM CHANGE MANAGEMENT ADMINISTRATOR): Continue with previous recommendations. Patient states she has been compliant. Follow up as needed Assessment & Plan (07/11/2020 1:57 PM CHANGE MANAGEMENT ADMINISTRATOR): Patient states she has a history of [...] treatments are documented for this patient in [facility]. Treatments may have been administered in another system. Lifetime Dose Tracking * Chemical Lifetime Dose Automatic Entry Manual Entr y Dose Length Product 1,704 mGy-cm 1,704 mGy-cm 0 mGy-cm
--- OUTSIDE RECORDS SUMMARY | 2024-09-01 17:59 | XMS_ITS | Clinical Summary ---
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 Gender Identity Not on file Sexual Orientation [...] Immunochemical Fecal Occult Blood 2018 Mammogram 2018 Pneumococcal Immunization (5 0+ years) (1 of 1 - PCV) 2018 Zoster Immunization (1 of 2) 2018 Influenza Immunization (#1) 2024 SARS-COV-2 Immunization ( - 2023- season) 2024 Respiratory Syncytial Virus (RSV) Immunization (Adult) (1 - 1-dose 75+ series) 11/23/2043 Meningococcal Immunization (ACWY) Aged Out No longer eligible based on patient's age to complete this topic Pneumococcal Immunization Combined Aged Out No longer eligible based on patient's age to complete this topic Rotavirus Immunization Aged Out No lo nger eligible based on patient's age to complete this topic
--- OUTSIDE RECORDS SUMMARY | 2024-09-01 17:59 | XMS_ITS | Patient Health Summary ---
Author Organization [facility] [employer] Address [address] [place] [address] Care Team Providers Care Development Engineer Name Role Phone Blake Lindsey MD Primary Care Provider [phone] [facility],non-owned Affiliates and Associated Physician Practices is amultiple site organization consisting of ambulatory clinics and hospital sitesin [place], [place], [place] and [place]. This disclosure is being madepursuant to the Care Everywhere program and may not contain all information available regarding this patient. Last updated 18.[facility] Allergies * Amoxicillin(Rash) -Medium Criticality * Codeine(Other) [...] 200mg/24 hours Reasons: Migraine Headache * NYSTOP 437138 UNIT/GM powder(Started 03/06/2019) Apply 1 Dose to [...] (two) tablets by mouth once daily * ofbmzgnanoy-vjdhnuren-nzjyik (Trelegy Ellipta) 200-62.5-25 MCG/ACT inhaler (Started 04/11/2024) [...] 04/05/2019) * PNEUMOCOCCAL PPSV23(Given 10/30/2015) * PNEUMOCOCCAL PPV VACCINE(Given 08/24/2013) * Pneumococcal Pcv13 Conj(Given 07/08/2021) [...] for Abnormal CT of the chest * ME TANGNTL BX SKIN SINGLE LES(Performed 05/12/2024) Performed for Neoplasm of uncertain behavior of skin * ME DESTRUCT BENIGN LESION, 1-14(Performed 05/12/2024) Performed for Inflamed seborrheic keratosis * DERMATOPATHOLOGY(Performed 05/12/2024) Performed for Neoplasm of uncertain behavior of skin * SS-A (SJOGREN'S) 52+60 ANTIBODIES(Performed 04/11/2024) Performed for Abnormal CT of the chest * SMOOTH MUSCLE ANTIBODY W REFLEX TITER(Performed 04/11/2024) Performed for Abnormal CT of the chest * MIKE/THERAPEUTIC MENTOR (SONU) ANTIBODY IGG(Performed 04/11/2024) Performed for Abnormal [...] for Abnormal CT of the chest * ME DESTRUCT BENIGN LESION, 1-14(Performed 03/02/2023) Performed for Inflamed seborrheic keratosis * ME DESTROY PREMALIG LESION, 1ST LESION(Performed 03/02/2023) Performed for Actinic keratosis * XR HAND LEFT 3VW OR MORE(Performed 10/07/2022) Performed for Bilateral hand pain * XR HAND RIGHT 3VW OR MORE(Performed 10/07/2022) Performed for Bilateral hand pain * ME TANGNTL BX SKIN SINGLE LES(Performed 10/02/2022) Performed for Neoplasm of uncertain behavior of skin * DERMATOPATHOLOGY(Performed 10/02/2022) Performed for Neoplasm of uncertain behavior of skin * ME DRAIN/INJECT LARGE JOINT/BURSA(Performed 08/05/2022) Performed for Trochanteric bursitis of right hip * ME ENDO NASAL SINUS BX POLYP DEBRID BRENDAN(Performed [...] Basal cell carcinoma (BCC) of scalp * ME DRAIN/INJECT LARGE JOINT/BURSA(Performed 08/14/2021) Performed for Hip [...] OR 2VW(Performed 08/13/2021) Performed for Pain * ME POLYSOM 6/>YRS CPAP 4/> PARM(Performed 08/06/2021) Performed for Central sleep apnea comorbid with prescribed opioid use, Primary central sleep apnea * ME LARYNGOSCOPY,FLEX FIBER,DIAGNOSTIC(Performed 07/01/2021) Performed for Right ear [...] Chronic obstructive pulmonary disease, unspecified COPD type ([facility]) * SIX MINUTE WALK(Performed 03/28/2021) Performed [...] SCREEN - POCT (IP) [facility](Performed 02/13/2019) * ME DRAIN/INJECT LARGE JOINT/BURSA(Performed 01/25/2019) Performed for Primary [...] lymphoma type, unspecified body region (HCC) * ME DRAIN/INJECT LARGE JOINT/BURSA(Performed 11/16/2018) Performed for Chronic [...] 02/21/2014) * PATHOLOGY TISSUE(Performed 02/21/2014) * CYTOLOGY NON-ELECTRONIC SENSING EQUIPMENT ASSEMBLER PANEL (STL)(Performed 02/21/2014) * LDH BLOOD(Performed 02/08/2014) [...] * THROMBIN TIME(Performed 11/16/2012) * PT MIX 08/02(Performed 11/16/2012) * CBC W AUTO DIFFERENTIAL(Performed 11/16/2012) [...] Hunter MD - 05/22/2024 12:11 PM CDT [facility] DEPARTMENT OF PULMONARY, CRITICAL [...] of Pulmonary, Critical Care, and Sleep Medicine [facility] [employer] I have personally reviewed and agree with the fellow's interpretation. Turner Hunter MD Narrative Turner Hunter MD - 05/22/2024 12:11 PM CDT Dar Sheriff MD ? 05/22/2024 ??9:26 PM Don Manuel MD RESPIRATORY THERAPY ORDERABLES * SIX MINUTE WALK (05/22/2024 12:10 PM CDT) Impressions Turner Hunter MD - 05/22/2024 12:10 PM CDT [facility] DEPARTMENT OF PULMONARY, CRITICAL CARE, AND [...] Sheriff MD Pulmonary and Critical Care Fellow [facility] Pager Number [phone] I have personally reviewed and agree with the fellow's interpretation. Turner Hunter MD Narrative Turner Hunter MD - 05/22/2024 12:10 PM CDT Dar Sheriff MD ? 05/22/2024 ??9:26 PM Don Manuel MD RESPIRATORY THERAPY ORDERABLES * COMPLETE PFT W/WO BRONCHODILATOR (05/22/2024 12:09 PM CDT) Impressions Turner Hunter MD - 05/22/2024 12:09 PM CDT [facility] DEPARTMENT OF PULMONARY, CRITICAL CARE, AND [...] of Pulmonary, Critical Care, and Sleep Medicine [facility] I have personally reviewed [...] Dictated by Hanna Tyson MD, MD (radiology physician assistant). I, Madhu Olivier MD have personally [...] Dictated by Hanna Tyson MD, MD (radiology physician assistant). I, Madhu Olivier MD have personally reviewed and interpreted this examination/study. > Interpreting Provider: Madhu Olivier MD on 05/22/2024 7:[address] ORDERABLES * ME TANGNTL BX SKIN SINGLE LES (05/12/2024 4:34 [...] and sent to dermatopathology. Mera Vitale MD [facility] Dermatology Resident Jaun Mascorro MD PROCEDURE/MINOR SURG ICAL ORDERABLES * ME DESTRUCT BENIGN LESION, 1-14 (05/12/2024 4:33 PM CDT) Narrative Jaun Mascorro MD - 05/12/2024 4:33 PM CDT Mera Vitale MD ? 05/12/2024 ??4:33 PM Diagnosis and treatment options discussed. Cryotherapy (Liquid Nitrogen) to 3 ISK x 10 seconds each. Number of cycles: 1. Wound care reviewed. Mera Vitale MD [facility] Dermatology Resident Jaun Mascorro MD PROCEDURE/MINOR SURG ICAL ORDERABLES * DERMATOPATHOLOGY (05/12/2024 12:00 AM CDT) Only the most recent of3 resultswithin the time period is included. Case Report Dermatopathology Report ? Case: [id number] ? Authorizing Provider: ??Jaun Mascorro MD ? [...] specimen consists of a shave biopsy measuring 13i31y9 mm. Jar 0. 4:29 PM CDT DERMATOPATHOLOGY [...] characteristic determined by the Dermatopathology Laboratory at [facility], directed by Dr. Buddy Fisher. These tests need not be, and therefore are not, approved by the [place] Food and Drug Administration. The tests are used for clinical purposes. Billing Codes Specimen Charges Stain Charges 81527 1 4:29 PM CDT DERMATOPATHOLOGY LABORATORY Embedded Images 4:29 PM CDT DERMATOPATHOLOGY LABORATORY Pathology/Cytolog y TISSUE SPECIMEN FROM SKIN / Unknown 05/12/2024 05/15/2024 6:42 AM CDT Jaun Mascorro MD LAB - PATHOLOGY/CYTO LOGY ORDERABLES DERMATOPATHOLOGY LABORATORY [facility] - Department of Dermatology [address] [place], [place] [id number] [place] [address] * SS-A (SJOGREN'S) 52+60 ANTIBODIES (04/11/2024 4:52 PM CDT) SS-A 52 Antibody 2 0 - 40 AU/mL 04/13/2024 10:22 PM CDT [facility] [employer] ([facility]) Comment: INTERPRETIVE [...] - 40 AU/mL 04/13/2024 10:22 PM CDT [facility] [employer] ([facility]) Comment: REFERENCE INTERVAL: SSA-60 (Ro60) (SONU) Antibody, IgG ??29 AU/mL or Less ............. Negative ??30 - 40 AU/mL ................ Equivocal ??41 AU/mL or Greater .......... Positive Performed By: [facility] [address] [place] [address] Bone Crusher: Sivakumar Levi MD, PhD CLIA Number: [id number] Blood BLOOD SPECIMEN / Unknown Lab Venipuncture / Unknown 04/11/2024 4:52 PM CDT 04/11/2024 5:31 PM CDT Don Manuel MD LAB - CHEMISTRY CHRISTOPHER DE LA GARZA [facility]) [address] * MIKE/THERAPEUTIC MENTOR (SONU) ANTIBODY IGG (04/11/2024 4:52 PM CDT) Pathologist [facility] Mike/THERAPEUTIC MENTOR (SONU) Antibody IgG 2 0 - 19 Units 04/13/2024 12:36 PM CDT [facility] ([facility]) Comment: INTERPRETIVE INFORMATION: Mike/THERAPEUTIC MENTOR (SONU) Antibody, IgG ??19 Units or Less ............. Negative ??20 to 39 Units ............... Weak Positive ??40 to 80 Units ............... Moderate Positive ??81 Units or greater .......... Strong Positive Mike/THERAPEUTIC MENTOR antibodies are frequently seen in patients with mixed connective tissue disease (MCTD) and are also associated with other systemic autoimmune rheumatic diseases (SARDs) such as systemic lupus erythematosus (SLE), systemic sclerosis, and myositis. Antibodies targeting the Mike/THERAPEUTIC MENTOR antigenic complex also recognize Mike antigens, therefore, the Mike antibody response must be considered when interpreting these results. Performed By: [facility] [address] [place] [address] Bone Crusher: Sivakumar Levi MD, PhD CLIA Number: [id number] Blood BLOOD SPECIMEN / Unknown Lab Venipuncture / Unknown 04/11/2024 4:52 PM CDT 04/11/2024 5:09 PM CDT Don Manuel MD LAB - CHEMISTRY CHRISTOPHER DE LA GARZA [facility]) [address] [place] [address], [facility] * MYOSITIS ANTIBODY PANEL COMPREHENSIVE (04/11/2024 4:52 PM CDT) [facility] SAE1 (SUMO activating enzyme) Ab Negative Negative 04/19/2024 4:47 PM CDT [facility]) NXP2 (Nuclear matrix protein-2) Ab Negative Negative 04/19/2024 4:47 PM CDT [facility]) MDA5 (CADM-140) Ab Negative Negative 2023 4:47 PM CDT [facility] ([facility]) TIF-1 gamma (155 kDa) Ab Negative Negative 04/19/2024 4:47 PM CDT [facility] ([facility]) Myositis Panel Interpretive Data See Note 04/19/2024 4:47 PM CDT [facility] ([facility]) Comment: INTERPRETIVE [...] . . . . . . ??X Mike/THERAPEUTIC MENTOR (SONU) Ab, IgG ??. . . . [...] . . . . ??X Fibrillarin (U3 THERAPEUTIC MENTOR) Ab, IgG . . . . . [...] developed and its performance characteristics determined by [employer]. It has not been cleared or approved by the US Food and Drug Administration. This test was performed in a CLIA certified laboratory and is intended for clinical purposes. Mi-2 Antibody Negative Negative 04/19/2024 4:47 PM CDT [facility]) P155/140 Antibody Negative Negative 024 4:47 PM CDT [facility]) PL-12 Antibody Negative Negative 04/19/2024 4:47 PM CDT [facility]) PL-7 Antibody Negative Negative 04/19/2024 4:47 PM CDT [facility]) OJ Antibody Negative Negative 04/19/2024 4:47 PM CDT [facility]) EJ Antibody Negative Negative 04/19/2024 4:47 PM CDT [facility]) SRP Antibody Negative Negative 04/19/2024 4:47 PM CDT [facility]) Susanne-1 Antibody IgG 0 0 - 40 AU/mL 04/19/2024 4:47 PM CDT [facility]) Comment: INTERPRETIVE INFORMATION: ??Susanne-1 Antibody, IgG ??29 AU/mL or less.........Negative ??30-40 AU/mL..............Equivocal ??41 AU/mL or greater......Positive Presence of Susanne-1 (antihistidyl transfer RNA [t-RNA' synthetase) antibody is associated with polymyositis and may also be seen in patients with dermatomyositis. Susanne-1 antibody is associated with pulmonary involvement (interstitial lung disease), Raynaud phenomenon, arthritis, and stoker installation mechanic's hands (implicated in antisynthetase syndrome). KU Antibody Negative Negative 04/19/2024 4:47 PM CDT [facility] ([facility]) Mike/THERAPEUTIC MENTOR (SONU) Antibody IgG 3 0 - 19 Units 04/19/2024 4:47 PM CDT [facility] ([facility]) Comment: INTERPRETIVE INFORMATION: Mike/THERAPEUTIC MENTOR (SONU) Antibody, IgG ??19 Units or Less ............. Negative ??20 to 39 Units ............... Weak Positive ??40 to 80 Units ............... Moderate Positive ??81 Units or greater .......... Strong Positive Mike/THERAPEUTIC MENTOR antibodies are frequently seen in patients with mixed connective tissue disease (MCTD) and are also associated with other systemic autoimmune rheumatic diseases (SARDs) such as systemic lupus erythematosus (SLE), systemic sclerosis, and myositis. Antibodies targeting the Mike/THERAPEUTIC MENTOR antigenic complex also recognize Mike antigens, therefore, the Mike antibody response must be considered when interpreting these results. PM/Scl 100 Antibody IgG Negative Negative 04/19/2024 4:47 PM T [facility] ([facility]) Comment: INTERPRETIVE [...] developed and its performance characteristics determined by [employer]. It has not been cleared or approved by the US Food and Drug Administration. This test was performed in a CLIA certified laboratory and is intended for clinical purposes. SS-A 52 Antibody 2 0 - 40 AU/mL 04/19/2024 4:47 PM [facility] ([facility]) Comment: INTERPRETIVE [...] 0 - 40 AU/mL 04/19/2024 4:47 PM [facility] ([facility]) Comment: REFERENCE INTERVAL: SSA-60 (Ro60) (SONU) Antibody, IgG ??29 AU/mL or Less ............. Negative ??30 - 40 AU/mL ................ Equivocal ??41 AU/mL or Greater .......... Positive Fibrillarin (U3 THERAPEUTIC MENTOR) Antibody IgG Negative Negative 04/19/2024 4:47 PM [facility] ([facility]) Comment: Interpretive Information: Fibrillarin (U3 THERAPEUTIC MENTOR) Antibody, IgG The presence of fibrillarin (U3-THERAPEUTIC MENTOR) IgG antibodies in association with an AURY [...] a multi-ethnic cohort of [facility]Sc patients (n=98), U3-THERAPEUTIC MENTOR antibodies detected by immunoblot had an agreement of 98.9 percent with the gold standard immunoprecipitation (IP) assay. Approximately 71 percent (5/7) of the borderline U3-THERAPEUTIC MENTOR results with AURY nucleolar pattern in this cohort were IP negative. This test was developed and its performance characteristics determined by [employer]. It has not been cleared or approved by the US Food and Drug Administration. This test was performed in a CLIA certified laboratory and is intended for clinical purposes. Performed By: [facility] [address] [place] [address] Bone Crusher: Sivakumar Levi MD, PhD CLIA Number: [id number] Blood BLOOD SPECIMEN / Unknown Lab Venipuncture / Unknown 04/11/2024 4:52 PM CDT 04/11/2024 5:31 PM CDT Don Manuel MD LAB - CHEMISTRY CHRISTOPHER DE LA GARZA [facility] ([facility]) [address] [place] [address], [facility] * SMOOTH MUSCLE ANTIBODY W REFLEX TITER (04/11/2024 4:52 PM CDT) F-Actin Antibody IgG 2 0 - 19 Units 04/13/2024 5:18 AM CDT [facility] [employer] ([facility]) Comment: If [...] suspicion for AIH is strong. Performed By: [facility] [employer] [address] [place] [address] Bone Crusher: Sivakumar Levi MD, PhD CLIA Number: [id number] Blood BLOOD SPECIMEN / Unknown Lab Venipuncture / Unknown 04/11/2024 4:52 PM CDT 04/11/2024 5:39 PM CDT Don Manuel MD LAB - SEROLOGY ORDER GITA Performing Organization Address City/[facility]/ZIP Co de Phone Number [facility]) [address] [place] [address], [facility] * HIV-1 HIV-2 ANTIBODY + HIV P24 AG PANEL (04/11/2024 4:52 PM CDT) HIV Antigen/Antibod y 1 & 2 Non-reacti ve Non-react teena 04/11/2024 6:[address] [facility] Comment:No Laboratory eviden ce of HIV infection. Blood BLOOD SPECIMEN / Unknown Lab Venipuncture / Unknown 04/11/2024 4:52 PM CDT 04/11/2024 5:32 PM CDT Don Manuel MD LAB - CHEMISTRY [facility] [address] [place] [id number], [place] [phone] * CYCLIC CITRUL PEPTIDE ANTIBODY IGG/IGA (CCP) [...] PM CDT 04/11/2024 5:31 PM CDT Narrative [facility] ([facility]) - 04/13/2024 3:10 PM CDT Performed at: ??01 - [facility] [address] [place], [place] ??[id number] Senior Research Consultant: Edison Chavez PhD, Phone: ??[phone] Don Manuel MD LAB - SEROLOGY ORDER GITA [facility]) [address] [place] [address], [facility] * DNA ANTIBODY DS CRITHIDIA TITER (04/11/2024 4:52 PM CDT) dsDNA Antibody IgG <1:10 <1:10 2023 12:15 AM CDT [facility] [employer] ([facility]) Comment: INTERPRETIVE [...] recommendations for testing may be found at [email or web address]. Performed By: [facility] [address] [place] [address] Bone Crusher: Sivakumar Levi MD, PhD CLIA Number: [id number] Blood BLOOD SPECIMEN / Unknown Lab Venipuncture / Unknown 04/11/2024 4:52 PM CDT 04/11/2024 5:30 PM CDT Don Manuel MD LAB - SEROLOGY ORDER GITA [facility] [employer] [facility]) [address] [place] [address], [facility] * ANCA VASCULITIS PANEL (04/11/2024 4:52 PM CDT) Myeloperoxidase Antibody 0 0 - 19 AU/mL 04/14/2024 11:59 PM CDT [facility] ([facility]) Comment: INTERPRETIVE INFORMATION: Myeloperoxidase Abs, IgG ??19 AU/mL or Less ......... Negative ??20-25 AU/mL .............. Equivocal ??26 AU/mL or Greater ...... Positive Approximately 90% of patients with a P-ANCA pattern by IFA have antibodies specific for MPO. Serine Proteinase 3 IgG 0 0 - 19 AU/mL 04/14/2024 11:59 PM CDT [facility] [employer] ([facility]) Comment: INTERPRETIVE INFORMATION: Serine Proteinase 3, IgG ??19 AU/mL or Less ........ Negative ??20-25 AU/mL ............. Equivocal ??26 AU/mL or Greater ..... Positive Approximately 85% of patients with a C-ANCA pattern by IFA have antibodies specific for PR3. ANCA Titer IFA <1:20 <1:20 04/14/2024 11:59 PM CDT [facility] [employer] ([facility]) ANCA Pattern IFA None Detected None Detected 04/14/2024 11:59 PM CDT [facility] [employer] ([facility]) Comment: INTERPRETIVE INFORMATION: ANCA IFA Pattern Neutrophil Cytoplasmic Antibodies (C-ANCA = granular cytoplasmic staining, P-ANCA = perinuclear staining) are found in the serum of over 90 percent of patients with certain necrotizing systemic vasculitides, and usually in less than 5 percent of patients with collagen vascular disease or arthritis. Performed By: [facility] [address] [place] [address] Bone Crusher: Sivakumar Levi MD, PhD CLIA Number: [id number] Blood BLOOD SPECIMEN / Unknown Lab Venipuncture / Unknown 04/11/2024 4:52 PM CDT 04/11/2024 5:09 PM CDT Don Manuel MD LAB - CHEMISTRY CHRISTOPHER DE LA GARZA [facility] [employer] ([facility]) [address] [place], [place] [id number], [facility] * PNEUMONITIS HYPERSENSITIVE PANEL (04/11/2024 4:52 PM CDT) Allergen Feather Mix Negative Negative kU/L 04/17/2024 1:59 AM CDT [facility] [employer] ([facility]) Aspergillus fumigatus 1 None Detected None Detected 04/17/2024 1:59 AM CDT [facility] ([facility]) Aspergillus fumigatus 6 See Note None Detected 04/17/2024 1:59 AM CDT [facility] [employer] ([facility]) Comment: A. fumigatus #6 Ab, Precipitin testing not performed due to reagent backorder. A credit will be issued for this component. Aureobasidium Pullulans None Detected None Detected 04/17/2024 1:59 AM CDT [facility] ([facility]) Browder Serum None Detected None Detected 04/17/2024 1:59 AM CDT [facility] ([facility]) Micropolyspora faeni None Detected None Detected 04/17/2024 1:59 AM CDT [facility] ([facility]) Aspergillus flavus None Detected None Detected 04/17/2024 1:59 AM CDT [facility] ([facility]) Aspergillus fumigatus 2 None Detected None Detected 04/17/2024 1:59 AM CDT [facility] ([facility]) Aspergillus fumigatus 3 None Detected None Detected 04/17/2024 1:59 AM CDT [facility] ([facility]) Saccharomonospora viridis None Detected None Detected 04/17/2024 1:59 AM CDT [facility] ([facility]) Thermoactinomyces candidus None Detected None Detected 04/17/2024 1:59 AM CDT [facility] ([facility]) Comment: Testing includes antibodies directed at Aureobasidium pullulans, Aspergillus flavus, Aspergillus fumigatus #1, Aspergillus fumigatus #2, Aspergillus fumigatus #3, Aspergillus fumigatus #6, Micropolyspora faeni, Browder Serum, Saccharomonospora viridis, and Thermoactinomyces candidus. Allergen Phoma betae <0.10 <=0.34 kU/L 04/17/2024 1:59 AM CDT [facility] ([facility]) Allergen Beef <0.10 <=0.34 kU/L 04/17/2024 1:59 AM CDT [facility] ([facility]) Allergen Pork <0.10 <=0.34 kU/L 04/17/2024 1:59 AM CDT [facility] ([facility]) Immunocap Score See Note 1:59 AM CDT [facility] ([facility]) Comment: [...] clinical allergy or even anaphylaxis. Performed By: [address] [address] Bone Crusher: Sivakumar Levi MD, PhD CLIA Number: [id number] Blood BLOOD SPECIMEN / Unknown Lab Venipuncture / Unknown 04/11/2024 4:52 PM CDT 04/11/2024 5:31 PM CDT Don Manuel MD LAB - CHEMISTRY CHRISTOPHER DE LA GARZA Performing Organization Address City/[facility]/ZIP Co de Phone Number [facility]) [address] [place] [id number] [place] [address] * RHEUMATOID FACTOR BLOOD QUANTITATIVE (04/11/2024 4:52 PM CDT) [facility] Rheumatoid Factor <15 <30 IU/mL 04/11/2024 5:44 PM CDT [facility] Rheumatoid Factor Screen Negative Negative 04/11/2024 5:44 PM CDT [facility] Blood BLOOD SPECIMEN / Unknown Lab Venipuncture / Unknown 04/11/2024 4:52 PM CDT 04/11/2024 5:32 PM CDT Don Manuel MD LAB - CHEMISTRY CHRISTOPHER DE LA GARZA [address] [address], [facility] [phone] * AURY BLOOD SCREEN W/REFLEX TITER (04/11/2024 4:52 PM CDT) [facility] AURY IgG None Detected None Detected 04/13/2024 3:43 PM CDT [facility]) Comment: If suspicion of connective tissue disease is strong and AURY EIA is negative, consider testing for AURY by IFA ([id number]). INTERPRETIVE INFORMATION: Anti-Nuclear Antibodies (AURY), IgG by [facility] Antinuclear Antibodies (AURY), IgG by [facility]: AURY specimens are screened using enzyme-linked immunosorbent assay (SINCERE) methodology. All [facility] results reported as Detected are further tested by indirect fluorescent assay (IFA) using HEp-2 substrate with an IgG-specific conjugate. The AURY SINCERE screen is designed to detect antibodies against dsDNA, histones, SS-A (Ro), SS-B (La), Mike, Mike/THERAPEUTIC MENTOR, Scl-70, Susanne-1, centromeric proteins, other antigens extracted from the HEp-2 cell nucleus. AURY SINCERE assays have been reported to have lower sensitivities than AURY IFA for systemic autoimmune rheumatic diseases (SARD). Negative results do not necessarily rule out SARD. Performed By: [facility] [employer] [address] [place] [address] Bone Crusher: Sivakumar Levi MD, PhD CLIA Number: [id number] Blood BLOOD SPECIMEN / Unknown Lab Venipuncture / Unknown 04/11/2024 4:52 PM CDT 04/11/2024 5:32 PM CDT Don Manuel MD LAB - CHEMISTRY MELISSAE [facility] Organization Address City/State/ZIP Co de Phone Number [facility] Poached [employer] [facility]) [address] [place] [address], [facility] * SS-B (SJOGREN'S) ANTIBODY (04/11/2024 4:52 PM CDT) SS-B Antibody 0 0 - 40 AU/mL 04/13/2024 9:51 PM CDT [facility] ([facility]) Comment: INTERPRETIVE [...] (PSS) also have this antibody. Performed By: [facility] [address] [place] [address] Bone Crusher: Sivakumar Levi MD, PhD CLIA Number: [id number] Blood BLOOD SPECIMEN / Unknown Lab Venipuncture / Unknown 04/11/2024 4:52 PM CDT 04/11/2024 5:31 PM CDT Don Manuel MD LAB - CHEMISTRY CHRISTOPHER DE LA GARZA [facility] ([facility]) [address] [place] [address], [facility] * CBC W/ DIFFERENTIAL (04/11/2024 4:52 PM CDT) Only the most recent of158 resultswithin the time period is included. WBC 8.6 4.0 - 10.7 x10E9/L 04/11/2024 5:45 PM [facility] RBC Count 4.62 3.90 - 5.20 x10E12/L 04/11/2024 5:45 PM [facility] Hemoglobin 15.1 11.9 - 15.8 g/dL 04/11/2024 5:45 PM [facility] Hematocrit 43.2 34.8 - 46.1 % 04/11/2024 5:45 PM [facility] MCV 93.5 80.0 - 98.0 fL 04/11/2024 5:45 PM [facility] MCH 32.7 26.7 - 33.6 pg 04/11/2024 5:45 PM [facility] MCHC 35.0 31.7 - 36.3 g/dL 04/11/2024 5:45 PM [facility] RDW-CV 12.9 11.3 - 14.8 % 04/11/2024 5:45 PM [facility] Platelet Count 214 150 - 420 x10E9/L 04/11/2024 5:45 PM [facility] MPV 8.8 7.8 - 11.4 fL 04/11/2024 5:45 PM [facility] Neutrophil % 58.4 41.0 - 74.0 % 04/11/2024 5:45 PM CDT [facility] Lymphocyte % 30.4 17.0 - 47.0 % 04/11/2024 5:45 PM CDT [facility] Monocyte % 6.3 3.0 - 11.0 % 04/11/2024 5:45 PM CDT [facility] Eosinophil % 4.1 0.0 - 7.0 % 04/11/2024 5:45 PM CDT [facility] Basophil % 0.6 0.0 - 1.6 % 04/11/2024 5:45 PM CDT [facility] Immature Granulocytes % 0.2 0.0 - 1.0 % 04/11/2024 5:45 PM CDT [facility] Neutrophil Absolute 5.00 1.60 - 7.50 x10E9/L 04/11/2024 5:45 PM CDT [facility] Lymphocyte Absolute 2.60 1.00 - 4.40 x10E9/L 04/11/2024 5:45 PM CDT [facility] Monocyte Absolute 0.54 0.15 - 1.00 x10E9/L 04/11/2024 5:45 PM CDT [facility] Eosinophil Absolute 0.35 0.00 - 0.60 x10E9/L 04/11/2024 5:45 PM CDT [facility] Basophil Absolute 0.05 0.00 - 0.13 x10E9/L 04/11/2024 5:45 PM CDT [facility] Blood BLOOD SPECIMEN / Unknown Lab Venipuncture / Unknown 04/11/2024 4:52 PM CDT 04/11/2024 5:28 PM CDT Don Manuel MD LAB - HEMATOLOGY ORD ERABLES [facility] [address] [place] [address], [facility] [phone] * ME DESTRUCT BENIGN LESION, 1-14 (03/02/2023 3:25 PM CDT) Narrative Jaun Mascorro MD - 03/02/2023 3:25 PM CDT Yoan Mendez MD ? 03/02/2023 ??3:25 PM Diagnosis and treatment options discussed. Cryotherapy (Liquid Nitrogen) to 1 lesion for 7 seconds each. Number of cycles: 1. Wound care reviewed. Jaun Mascorro MD PROCEDURE/MINOR SURG ICAL ORDERABLES * ME DESTROY PREMALIG LESION, 1ST LESION (03/02/2023 3:25 PM CDT) Narrative Jaun Mascorro MD - 03/02/2023 3:25 PM CDT Yoan Mendez MD ? 03/02/2023 ??3:25 PM Diagnosis and treatment options discussed. Cryotherapy (Liquid Nitrogen) to 1 lesion for 4-6 seconds. Number of cycles: 1. Wound care reviewed. Jaun Mascorro MD PROCEDURE/MINOR SURG ICAL ORDERABLES * XR HAND LEFT 3VW OR MORE (10/07/2022 9:10 AM CONTENT CHECKER) Anatomical Region Laterality Modality Wrist / Hand Radiographic Jonna ging 10/07/2022 9:56 AM CONTENT CHECKER Impressions 10/07/2022 9:59 AM CONTENT CHECKER IMPRESSION: Minimal degenerative changes. > Interpreting Provider: Emil Chung MD on 10/07/2022 9:59 AM Narrative 10/07/2022 9:59 AM CONTENT CHECKER PROCEDURE: ??XR HAND LEFT 3VW OR MORE, XR HAND RIGHT 3VW OR MORE, DATE/TIME OF EXAM: ??10/07/2022 9:10 AM, LOCATION ??[facility] INDICATION: M79.641: Bilateral hand pain [...] MORE,DATE/TIME OF EXAM: 10/07/2022 9:10 AM, LOCATION [facility] INDICATION: M79.641: Bilateral hand pain M79.642: Bilateral hand pain ADDITIONAL CLINICAL INFORMATION: Ordering Provider Reason For Exam: [facility] [place] PAIN Technologist Note: Additional: [...] RIGHT 3VW OR MORE (10/07/2022 9:09 AM CONTENT CHECKER) Anatomical Region Laterality Modality Wrist / Hand Radiographic Jonna ging 10/07/2022 9:56 AM CONTENT CHECKER Impressions 10/07/2022 9:59 AM CONTENT CHECKER IMPRESSION: Minimal degenerative changes. > Interpreting Provider: Emil Chung MD on 10/07/2022 9:59 AM Narrative 10/07/2022 9:59 AM CONTENT CHECKER PROCEDURE: ??XR HAND LEFT 3VW OR MORE, XR HAND RIGHT 3VW OR MORE, DATE/TIME OF EXAM: ??10/07/2022 9:10 AM, LOCATION ??[facility] INDICATION: M79.641: Bilateral hand pain [...] MORE,DATE/TIME OF EXAM: 10/07/2022 9:10 AM, LOCATION [facility] INDICATION: M79.641: Bilateral hand pain [...] Jennifer DUVALL-Luz Maria DIAGNOSTIC IMAGING ORDERABLES * ME TANGNTL BX SKIN SINGLE LES (10/02/2022 1:47 PM CONTENT CHECKER) Narrative Jaun Mascorro MD - 10/02/2022 1:47 PM CONTENT CHECKER Héctor Swenson MD ? 10/02/2022 ??1:48 PM [...] Mascorro MD PROCEDURE/MINOR SURG ICAL ORDERABLES * ME DRAIN/INJECT LARGE JOINT/BURSA (08/05/2022 11:06 AM CONTENT CHECKER) Narrative Wai Lowry MD - 08/05/2022 11:06 AM CONTENT CHECKER Wai Lowry MD ? 08/05/2022 ??2:01 PM INJECTION PROCEDURE NOTE: The injection site was marked. A timeout was performed. Under sterile conditions, without complications, tolerated well by the patient, 4 cc ropivacaine and 80 mg (2 cc) triamcinolone were injected into the right greater trochanteric bursa. Wai Lowry MD PROCEDURE/MINOR SURG ICAL ORDERABLES * ME ENDO NASAL SINUS BX POLYP DEBRID BRENDAN (07/08/2022 9:40 AM CONTENT CHECKER) Narrative Sharan Mike MD - 07/08/2022 9:40 AM CONTENT CHECKER Sharan Mike MD ? 07/08/2022 10:11 AM [...] SOFT TISSUE W CONT (06/18/2022 3:13 PM CONTENT CHECKER) Only the most recent of3 resultswithin the time period is included. Anatomical Region Laterality Modality Head Computed Tomogra phy 06/18/2022 3:25 PM CONTENT CHECKER Impressions 06/19/2022 1:26 PM CONTENT CHECKER IMPRESSION: ?? 1.Stable appearance of the 2 separate hyperdense/enhancing lesions in the superficial lobe of left parotid gland. 2.No significant cervical lymphadenopathy. > Dictated by Lisandro Burris M.D. (radiology physician assistant) I, Alberto Akers MD have personally reviewed and interpreted this examination/study. > Interpreting Provider: Alberto Akers MD on 06/19/2022 1:26 PM Narrative 06/19/2022 1:26 PM CONTENT CHECKER PROCEDURE: ??CT NECK SOFT TISSUE W CONT, DATE/TIME OF EXAM: ??06/18/2022 3:13 PM, LOCATION ??[facility] INDICATION: C81.90: Hodgkin lymphoma, unspecified [...] SPACE: Normal. PHARYNX/LARYNX/TRACHEA: Normal. RETROPHARYNGEAL SPACE: Normal. VEGETABLE CUTTER SPACE: Normal. CAROTID SPACE: Retropharyngeal course of [...] CONT, DATE/TIME OF EXAM: :13 PM, LOCATION [facility] INDICATION: C81.90: Hodgkin lymphoma, unspecified [...] SPACE: Normal. PHARYNX/LARYNX/TRACHEA: Normal. RETROPHARYNGEAL SPACE: Normal. VEGETABLE CUTTER SPACE: Normal. CAROTID SPACE: Retropharyngeal course of [...] > Dictated by Lisandro Burris M.D. (radiology physician assistant) I, Alberto Akers MD have personally reviewed and interpreted this examination/study. > Interpreting Provider: Alberto Akers MD on 06/19/2022 1:26 PM Ashish Peralta MD CT ORDERABLES * (ABNORMAL) COMPREHENSIVE METABOLIC PANEL (06/09/2022 3:46 PM CONTENT CHECKER) Only the most recent of88 resultswithin the time period is included. BUN 12 7 - 26 mg/dL 06/09/2022 4:29 PM [facility] Creatinine 0.66 0.56 - 0.96 mg/dL 06/09/2022 4:29 PM [facility] Sodium 140 136 - 145 mmol/L 06/09/2022 4:29 PM [facility] Potassium 3.7 3.5 - 4.5 mmol/L 06/09/2022 4:29 PM [facility] Chloride 111(H) 98 - 107 mmol/L 06/09/2022 4:29 PM [facility] CO2 21(L) 22 - 29 mmol/L 06/09/2022 4:29 PM [facility] Glucose 115 70 - 115 mg/dL 06/09/2022 4:29 PM [facility] Calcium 9.9 8.4 - 10.2 mg/dL 06/09/2022 4:29 PM [facility] Protein Total 7.7 6.0 - 8.3 g/dL 06/09/2022 4:29 PM [facility] Albumin 4.0 3.4 - 5.0 g/dL 06/09/2022 4:29 PM [facility] Bilirubin Total 0.7 0.2 - 1.2 mg/dL 06/09/2022 4:29 PM [facility] Alkaline Phosphatase 116 40 - 150 U/L 06/09/2022 4:29 PM [facility] ALT 16 5 - 55 U/L 06/09/2022 4:29 PM [facility] AST 16 5 - 34 U/L 06/09/2022 4:29 PM [facility] Anion Gap 12 8 - 18 06/09/2022 4:29 PM [facility] BUN/Creatinine Ratio 18 7 - 23 06/09/2022 4:29 PM [facility] Osmolality Calculated 291 270 - 300 mOsm/kg 06/09/2022 4:29 PM [facility] Albumin/Globulin Ratio 1.1 1.1 - 2.3 06/09/2022 4:29 PM [facility] eGFR by CKD-EPI >90 >=90 mL/min/1.7 3 m2 06/09/2022 4:29 PM [facility] Blood BLOOD SPECIMEN / Unknown Lab Venipuncture / Unknown 06/09/2022 3:46 PM CONTENT CHECKER 06/09/2022 4:02 PM CONTENT CHECKER Ashish Peralta MD LAB - CHEMISTRY CHRISTOPHER DE LA GARZA Performing Organization Address [facility]/ZIP Co de Phone Number [address] [address], [facility] [phone] * ME DRAIN/INJECT LARGE JOINT/BURSA (08/14/2021 2:09 PM CONTENT CHECKER) Narrative Wai Lowry MD - 08/14/2021 2:09 PM CONTENT CHECKER Wai Lowry MD ? 08/14/2021 ??2:09 PM INJECTION PROCEDURE NOTE: The injection site was marked. A timeout was performed. Under sterile conditions, without complications, tolerated well by the patient, 4 cc ropivacaine and 80 mg (2 cc) triamcinolone were injected into the right greater trochanteric bursa. Wai Lowry MD PROCEDURE/MINOR SURG ICAL ORDERABLES * TRANSFERRIN (08/13/2021 3:48 PM CONTENT CHECKER) Transferrin 314 174 - 382 mg/dL 08/13/2021 4:39 PM CONTENT CHECKER [facility] Blood BLOOD SPECIMEN / Unknown Lab Venipuncture / Unknown 08/13/2021 3:48 PM CONTENT CHECKER 08/13/2021 4:16 PM CONTENT CHECKER Lowell Pop MD LAB - CHEMISTRY ORD VICENTA Performing Organization Address City/[facility]/ZIP Co de Phone Number [address] [address], [facility] [phone] * IRON BLOOD (08/13/2021 3:48 PM CONTENT CHECKER) [facility] Iron 127 40 - 150 ug/dL 08/13/2021 4:39 PM CONTENT CHECKER [facility] Blood BLOOD SPECIMEN / Unknown Lab Venipuncture / Unknown 08/13/2021 3:48 PM CONTENT CHECKER 08/13/2021 4:16 PM CONTENT CHECKER Lowell Pop MD LAB - CHEMISTRY ORD ERABLES [facility] [address] [place] [address], [facility] [phone] * METHYLMALONIC ACID BLOOD (08/13/2021 3:47 PM CONTENT CHECKER) [facility] Methylmalonic Acid 0.15 0.00 - 0.40 umol/L 08/17/2021 1:08 PM CONTENT CHECKER [facility] ([facility]) Comment: INTERPRETIVE INFORMATION: MMA Serum/Plasma, ?Vitamin B12 Status This test was developed and its performance characteristics determined by [facility]. It has not been cleared or approved by the [place] Food and Drug Administration. This test was performed in a CLIA certified laboratory and is intended for clinical purposes. Performed By: [facility] [address] [place] [address] Bone Crusher: Karol Bowen MD Blood BLOOD SPECIMEN / Unknown Lab Venipuncture / Unknown 08/13/2021 3:47 PM CONTENT CHECKER 08/13/2021 4:16 PM CONTENT CHECKER Lowell Pop MD LAB - CHEMISTRY ORD ERABLES Performing Organization Address City/[facility]/ZIP Co de Phone Number [facility] [employer] [facility]) [address] * VITAMIN D 25-HYDROXY (08/13/2021 3:47 PM CONTENT CHECKER) Only the most recent of2 resultswithin the time period is included. [facility] Vitamin D, 25 Hydroxy 31.0 30.0 - 80.0 ng/mL 08/13/2021 5:03 PM CONTENT CHECKER [facility] Comment: The recommendations for 25-Hydroxy Vitamin [...] Lab Venipuncture / Unknown 08/13/2021 3:47 PM CONTENT CHECKER 08/13/2021 4:14 PM CONTENT CHECKER Lowell Pop MD LAB - CHEMISTRY ORD ERABLES Performing Organization Address [facility] [[email or web address]] de Phone Number [address] [address], [facility] [phone] * (ABNORMAL) VITAMIN B12 (08/13/2021 3:47 PM CONTENT CHECKER) Vitamin B12 989(H) 213 - 816 pg/mL 08/13/2021 5:03 PM CONTENT CHECKER [facility] Blood BLOOD SPECIMEN / Unknown Lab Venipuncture / Unknown 08/13/2021 3:47 PM CONTENT CHECKER 08/13/2021 4:14 PM CONTENT CHECKER Lowell Pop MD LAB - CHEMISTRY ORD ERABLES Performing Organization Address [facility]/ZIP Co de Phone Number [facility] [address] [place] [address], [place] [phone] * FERRITIN (08/13/2021 3:47 PM CONTENT CHECKER) Ferritin 39 13 - 204 ng/mL 08/13/2021 4:57 PM CONTENT CHECKER [facility] Blood BLOOD SPECIMEN / Unknown Lab Venipuncture / Unknown 08/13/2021 3:47 PM CONTENT CHECKER 08/13/2021 4:16 PM CONTENT CHECKER Lowell Pop MD LAB - CHEMISTRY ORD ERABLES [facility] [address] [place] [address], [facility] [phone] * XR HIP RIGHT 2VW OR MORE (08/13/2021 2:48 PM CONTENT CHECKER) Anatomical Region Laterality Modality Pelvis, Lower Extremity Radiogra phic Imaging 08/13/2021 2:48 PM CONTENT CHECKER Impressions 08/13/2021 2:50 PM CONTENT CHECKER IMPRESSION: No acute findings. This report was electronically signed by HEMAL GOODE ??on 08/13/2021 2:50 PM . Narrative 08/13/2021 2:50 PM CONTENT CHECKER EXAMINATION: XR PELVIS 1 OR 2VW, XR [...] PELVIS 1 OR 2VW (08/13/2021 2:48 PM CONTENT CHECKER) Anatomical Region Laterality Modality Pelvis Radiographic Jonna ging 08/13/2021 2:48 PM CONTENT CHECKER Impressions 08/13/2021 2:50 PM CONTENT CHECKER IMPRESSION: No acute findings. This report was electronically signed by HEMAL GOODE ??on 08/13/2021 2:50 PM . Narrative 08/13/2021 2:50 PM CONTENT CHECKER EXAMINATION: XR PELVIS 1 OR 2VW, XR [...] Lowry MD DIAGNOSTIC IMAGING O RDERABLES * ME POLYSOM 6/>YRS CPAP 4/> PARM (08/06/2021 10:18 AM CONTENT CHECKER) Narrative Lowell Pop MD - 08/06/2021 10:18 AM Lowell Alvares MD ? 08/06/2021 10:19 AM [facility] Accredited by the [employer] [facility], First Floor [address] [place] [address] Telephone : [phone] ? Medical Records Patient Name: Lakeisha Alejandra : 1970 Date of Study: 08/05/2021 Referring Physician: Blake Lindsey MD Type of Montage: Respiratory Scoring Montage: ??[facility] FULL NIGHT THERAPEUTIC POLYSOMNOGRAM INTERPRETATION Procedure: The polysomnogram was performed with a senior technologist in attendance. ??Central, occipital, and temporal [...] History: Ms. Lakeisha Alejandra, a 50 year [id number] female, was referred to the Sleep Disorders [...] ?fluticasone propionate (FLONASE) 50 MCG/ACT nasal spray, [place]oplar 2 sprays into each nostril once daily, [...] nares, Disp: 22 g, Rfl: 1 ?NYSTOP [id number] UNIT/GM powder, Apply 1 Dose to affected [...] shunt, diffusion abnormality, etc.). Lowell Pop MD, [facility], [facility], [facility] Block Out Machine Operator, [facility] Professor of Internal Medicine Adjunct Customs Brokerage Manager of Neurology Division of Pulmonary, Critical Care, and Sleep Medicine [facility] [place] This note was electronically signed on 08/06/2021. Reba A Dettenmeier APNP-CONTRACT ADMIN PROCEDUR E/MINOR SURGICAL ORDERABLES * ME LARYNGOSCOPY,FLEX FIBER,DIAGNOSTIC (07/01/2021 5:16 PM CONTENT CHECKER) Narrative Sharan Mike MD - 07/01/2021 5:16 PM CONTENT CHECKER Sharan Mike MD ? 07/01/2021 ??7:16 PM [...] CULTURE STREP GROUP A (07/01/2021 4:38 PM CONTENT CHECKER) Culture Negative for beta-hemolytic Streptococcus Group A NEVIN 07/03/2021 9:52 AM CONTENT CHECKER [facility] MICROBIOLOGY Microbiology ENTIRE THROAT (SURFACE REGION OF NECK) / Unknown Collection / Unknown 07/01/2021 4:38 PM CONTENT CHECKER 07/01/2021 5:04 PM CONTENT CHECKER Jah Ochoa MD LAB - MICROBIOLOGY O RDERABLES [facility] MICROBIOLOGY [address] [place] [address], [facility] [phone] * AUDIOLOGY/TYMPANOMETRY ORDER (07/01/2021 2:21 PM CONTENT CHECKER) Narrative Leann Cross AuD - 07/01/2021 2:31 PM CONTENT CHECKER History: Lakeisha Alejandra arrived for a hearing [...] change in hearing is suspected. Andrea Galeano. [facility]-A Clinical Artist'S Manager [facility]ol[facility] [address] [facility] [place] [address] Leann Mendez AUDIOLOGY SERVICES O RDERABLES * BLOOD GASES ART+COOX POCT (05/28/2021 1:52 PM CDT) pH Arterial 7.43 7.35 - 7.45 pH 05/28/2021 1:52 PM [facility] pO2 Arterial 86 80 - 100 mmHg 05/28/2021 1:52 PM [facility] pCO2 Arterial 39 35 - 45 mmHg 1:52 PM [facility] BE Arterial 1.6 -2.0 - 2.0 mmol/L 05/28/2021 1:52 PM [facility] Oxyhemoglobin Arterial 95.3 % 05/28/2021 1:52 PM [facility] Dexoyhemoglobin (HHB) % 1.8 % 05/28/2021 1:52 PM [facility] O2 Content Arterial 19.5 Interpret within clinical context mg/dL 05/28/2021 1:52 PM [facility] Hemoglobin by COOX 14.5 12.0 - 15.6 g/dL 05/28/2021 1:52 PM [facility] O2 Saturation Arterial 98 90 - 100 % 05/28/2021 1:52 PM [facility] HCO3 Arterial 26 20 - 30 mmol/l 05/28/2021 1:52 PM [facility] Methemoglobin 1.2 0.0 - 2.0 % 05/28/2021 1:[address] [facility] Carboxyhemoglobin 1.7 0.0 - 2.0 % 2020 1:[address] [facility] Comment:Carboxyhemoglobin No rmal Concentration: Non-smokers: 0-2%; Smokers: 0- 9%; Toxic: >20% Blood, arterial ARTERIAL BLOOD SPECIMEN / Unknown 05/28/2021 1:52 PM CDT 05/28/2021 1:52 PM CDT Don Manuel MD LAB - POINT OF CARE ORDERABLES [facility] [address] [place] [address], [facility] [phone] * BLOOD GAS COOX ART POC NOTIFICATION [...] Martinez MD - 05/28/2021 1:16 PM CDT [facility] DEPARTMENT OF PULMONARY, CRITICAL [...] of Pulmonary, Critical Care, & Sleep Medicine [facility] 05/29/2021 3:57 PM ?? I have reviewed the above study and agree with the interpretation as listed above. Rosendo Martinez MD Customs Brokerage Manager of Pulmonary & Critical Care Medicine [facility] Pager [phone] Narrative Rosendo Martinez MD - 05/28/2021 1:16 PM CDT Kris Trimble MD ? 05/29/2021 ??3:56 PM Joe Lomas MD PFT ORDERABLES * COMPLETE PFT W/WO BRONCHODILATOR (05/28/2021 1:16 PM CDT) Impressions Rosendo Martinez MD - 05/28/2021 1:16 PM CDT [facility] DEPARTMENT OF PULMONARY, CRITICAL CARE, AND [...] of Pulmonary, Critical Care, & Sleep Medicine [facility] 05/29/2021 , 3:55 PM I have reviewed the above study and agree with the interpretation as listed above. Rosendo Martinez MD Customs Brokerage Manager of Pulmonary & Critical Care Medicine [facility] Pager [phone] Narrative Rosendo Martinez MD - 05/28/2021 1:16 [...] Costa MD - 03/28/2021 2:53 PM CDT [facility] DEPARTMENT OF PULMONARY, CRITICAL [...] [place] to complete the test. Elicia Lucero, DO Pulmonary/Critical Care Medicine, PGY-4 I have reviewed this study and agree with the interpretation by the Pre Sales Architect. Manjinder Costa M.D. Palliative Care Specialist of Internal Medicine Division of Pulmonary, Critical Care and Sleep Medicine [facility] [employer] Narrative Manjinder Costa MD - 03/28/2021 2:53 PM CDT Elicia Lucero I., DO ? 03/28/2021 ??6:06 PM Don Manuel MD PFT ORDERABLES * SIX MINUTE WALK (03/28/2021 2:52 PM CDT) Impressions Manjinder Costa MD - 03/28/2021 2:52 PM CDT [facility] DEPARTMENT OF PULMONARY, CRITICAL CARE, AND [...] and agree with the interpretation by the Pre Sales Architect. Manjinder Costa M.D. Palliative Care Specialist of Internal Medicine Division of Pulmonary, Critical Care and Sleep Medicine [facility] [place] Narrative Manjinder Costa MD - 03/28/2021 2:52 [...] Immunocap Score See Note 3:26 PM CDT [facility] ([facility]) Comment: REFERENCE [...] clinical allergy or even anaphylaxis. Performed By: [facility] [address] [place] [address] Bone Crusher: Karol Bowen MD Blood BLOOD SPECIMEN / Unknown Lab Venipuncture / Unknown 03/28/2021 7:29 AM CDT 03/28/2021 9:40 AM CDT Don Manuel MD LAB - SEROLOGY ORDER GITA [facility]) [address] [place] [address], [facility] * ALLERGEN RESPIRATORY PROF (IL,[place],IA) IGE (03/28/2021 7:29 AM CDT) [facility] IgE Total 4 <=214 kU/L 03/30/2021 3:18 PM CDT [facility] [employer] ([facility]) Comment: REFERENCE INTERVAL: Immunoglobulin E, Serum Access complete set of age- and/or gender-specific reference intervals for this test in the [facility] Test Directory ([employer]). Allergen Meier Elder <0.10 <=0.34 kU/L 03/30/2021 3:18 PM CDT [facility] ([facility]) Allergen Alternaria alternata <0.10 <=0.34 kU/L 03/30/2021 3:18 PM CDT [facility] ([facility]) Allergen [place] Maple <0.10 <=0.34 kU/L 03/30/2021 3:18 PM CDT [facility] ([facility]) Allergen Cat Dander <0.10 <=0.34 kU/L 03/30/2021 3:18 PM CDT [facility] ([facility]) Allergen [place] <0.10 <=0.34 kU/L 03/30/2021 3:18 PM CDT [facility] ([facility]) Allergen [place] Tree <0.10 <=0.34 kU/L 03/30/2021 3:18 PM CDT [facility] ([facility]) Allergen Rough Pigweed <0.10 <=0.34 kU/L 03/30/2021 3:18 PM CDT [facility] ([facility]) Allergen Cuban Thistle <0.10 <=0.34 kU/L 03/30/2021 3:18 PM [...] LABORATORIES ([facility]) Allergen [place] <0.10 <=0.34 kU/L 03/30/2021 3:18 PM CDT [...] <0.10 <=0.34 kU/L 03/30/2021 3:18 PM CDT [facility] ([facility]) Allergen Cockroach Israeli <0.10 <=0.34 kU/L 03/30/2021 3:18 PM CDT [facility] ([facility]) Allergen Antigo Tree <0.10 <=0.34 kU/L 03/30/2021 3:18 PM CDT [facility] ([facility]) Allergen Rice Tree <0.10 <=0.34 kU/L 03/30/2021 3:18 PM CDT [facility] ([facility]) Allergen Pecan Tree <0.10 <=0.34 kU/L 03/30/2021 3:18 PM CDT [facility] ([facility]) Allergen Mouse Epithelium IgE <0.10 <=0.34 kU/L 03/30/2021 3:18 PM CDT [facility] ([facility]) Allergen Mucor racemosus <0.10 <=0.34 kU/L 03/30/2021 3:18 PM CDT [facility] ([facility]) Allergen [place] Tree IgE <0.10 <=0.34 kU/L 03/30/2021 3:18 PM CDT [facility] CHILDREN) Allergen Dog Dander <0.10 <=0.34 kU/L 03/30/2021 3:18 PM CDT [facility] ([facility]) Comment: Performed By: [employer] [address] [place] [address] Bone Crusher: Karol Bowen MD Blood BLOOD SPECIMEN / Unknown Lab Venipuncture / Unknown 03/28/2021 7:29 AM CDT 03/28/2021 9:40 AM CDT Don Manuel MD LAB - CHEMISTRY [facility]RISTOPHER DE LA GAR[facility] Organization Address City/State/ZIP Co de Phone Number JOCELINE [employer] ([facility]) [address] [phone], [facility] * CT ANGIO CHEST PULM EMBOLISM (03/28/2021 [...] Report drafted by Remy Gomez (resident) Dr. Hollsi Muller M.D. have personally reviewed and interpreted [...] - 1.30 mg/dL 03/28/2021 7:27 AM CDT [facility] eGFR >60 >60 mL/min/1.7 3 m2 03/28/2021 7:27 AM CDT [facility] Blood BLOOD SPECIMEN / Unknown 03/28/2021 7:07 AM CDT 03/28/2021 7:27 AM CDT Don Manuel MD LAB - POINT OF CARE ORDERABLES Performing Organization Address City/State/[facility] Co de Phone Number [facility] [address] [place] [phone], [facility] [phone] * IR US FINE NEEDLE ASPIRATION (11/04/2020 [...] on 11/04/2020 4:45 PM . Nia Augustin APRN-CONTRACT ADMIN IR ORDERABLES * CULTURE ABSCESS+GRAM STAIN (11/04/2020 2:07 PM CDT) Culture No growth NEVIN 11/07/2020 6:25 AM CDT [facility] Gram Stain No organisms seen 021 6:25 AM CDT [facility] Gram Stain Rare Polymorphonuclear cells 11/07/2020 6:25 AM CDT [facility] Microbiology MASS OF PAROTID GLAND / Unknown Collection / Unknown 11/04/2020 2:07 PM CDT 11/04/2020 4:06 PM CDT Blaine Pang MD LAB - MICROBIOL OGY ORDERABLES [facility] [address] [place], [place] [address], [facility] [phone] * FINE NEEDLE ASPIRATION (STL) (11/04/2020 1:36 PM CDT) Case Report Medical Cytology Report ? Case: [id number] ? Authorizing Provider: ??Nia Augustin, [place] ?Collected: ? 11/04/2020 01:36 PM ? Ordering Location: ? [facility] ?Received: ?11/04/2020 03:09 PM ? Pathologist: ? Jaun Davison MD ? Specimens: ?? A) - Lymph Node, parotid left ? B) - Cervical Lymph Node , left deep cervical ? 11/05/2020 5:03 PM CDT [facility] Specimen Adequacy Adequate cellularity for evaluation. 11/05/2020 5:03 PM CDT [facility] PATH[facility] Final Diagnosis Lymph node, left parotid, US-guided FNA: - Neoplasm: Benign (see comment). Lymph node, left level 2B 'deep left cervical', US-guided FNA: - Mixed hematopoietic elements with some atypical forms (see comment). 11/05/2020 5:03 PM [facility] Clinical History The patient is a 49-year-ol woman with history of stage IV classic Hodgkin's lymphoma status post chemotherapy who was found to have a 1.2 cm intraparotid nodule on a re-staging exam. 11/05/2020 5:03 PM CDT [facility] Gross Description A) 2 pap [...] 2: some lymphocytes (13:40) 11/05/2020 5:03 PM [facility] PATH[facility] Microscopic Description Parotid (A), direct [...] in this lymph node. 11/05/2020 5:03 PM [facility] Disclaimer The performance characteristics of all immunohistochemical and indirect immunofluorescence stains (if any) cited in this report were determined by the Histopathology Laboratory of [facility]. Some of these tests rely on the use of analyte-specific reagents and are subject to specific labeling requirements by the US Food and Drug Administration. Such tests were developed by the Histology Laboratory of [facility] and have not been cleared or approved [...] attending (teaching) pathologist. 11/05/2020 5:03 PM CDT [facility] PATH[facility] LAB Embedded Images 11/05/2020 5:03 PM CDT [facility] Pathology/Cytology ENTIRE LYMPH NODE / Unknown Collection / Unknown 11/04/2020 1:36 PM CDT 11/04/2020 3:09 PM CDT Miscellaneous samples (specimen) ENTIRE CERVICAL LYMPH NODE / Unknown 11/04/2020 1:36 PM CDT 11/04/2020 3:09 PM CDT Nia Augustin APRN-CONTRACT ADMIN LAB - PATHOLOGY/CY TOLOGY ORDERABLES Performing Organization Address [facility]/State/[facility] [[email or web address]] de Phone Number [facility] PATH[facility] LAB [address] [phone] * FLOW CYTOMETRY BODY FLUID (11/04/2020 1:30 PM CDT) Case Report Flow Cytometry ?Case: [id number] ? Authorizing Provider: ??Nia Augustin, [place] ?Collected: ? 11/04/2020 01:30 PM ? Ordering Location: ? [facility] ? Received: ?11/04/2020 02:49 PM ? Pathologist: ? Sisi Pichardo MD ? Specimen: ?Body Fluid ? 11/04/2020 4:15 PM [facility] Final Diagnosis Lymph node, left neck, flow cytometric immunophenotypic analysis: - No evidence of non-Hodgkin lymphoma. - See interpretation. 11/04/2020 4:15 PM [facility] Flow Cytometry Interpretation The left neck lymph node specimen has a viability of 100%. Within the lymphocyte gate, there is no monoclonal B-cell population identified (kappa:lambda ratio = 1.1:1). There is no aberrant T-cell population seen (CD4:CD8 ratio is 1.4:1). A cytospin prepared from the flow cytometry specimen is reviewed for manager quality compliance purposes. The left neck lymph node specimen shows no evidence of involvement by non-Hodgkin lymphoma. Correlation with clinical findings is required. 11/04/2020 4:15 PM [facility] Flow Cytometry Results Differential Result Comment Flow Cell Count /uL 1,100 Total Viability % 100 Lymphocytes % 98 Dim CD45 Region % 0 Monocytes % 1 Granulocytes % 1 11/04/2020 4:15 PM [facility] Client Specimen ID # [id number] 11/04/2020 4:15 PM [facility] Reason for test Hodgkin lymphoma, unspecified Hodgkin lymphoma type, unspecified body region 11/04/2020 4:15 PM [facility] Number of markers 16 were performed. A-2 Flow CD3 A-4 Flow CD10 A-6 Flow CD20 A-7 Flow CD23 A-12 Flow CD2 A-13 Flow CD4 A-16 Flow CD1a A-3 Flow CD5 A-5 Flow CD19 A-8 Flow CD34 A-9 Flow CD45 A-14 Flow CD7 A-15 Flow CD8 A-17 Flow CD30 A-10 [place]+CD19+ A-11 Lambda+CD19+ 11/04/2020 4:15 PM CDT [facility] PATH[facility] Disclaimer Test performed at [facility], [address] [place], [place], [address]. *The established laboratory minimum viability is 70%. [...] complexity clinical testing. 11/04/2020 4:15 PM CDT [facility] PATH[facility] Embedded Images 4:15 PM CDT [facility] Fluid BODY FLUID SPECIMEN / Unknown 11/04/2020 1:30 PM CDT 11/04/2020 2:49 PM CDT Comment:Lymph node, cervical , left, FNA Nia Augustin RAILROAD BRAKE OPERATOR-CONTRACT ADMIN LAB - PATHOLOGY/CY TOLOGY ORDERABLES [facility] PATH[facility] [place] [address], [facility] [phone] * CT THORAX ABDOMEN PELVIS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 Screen Urine Negative Negative : < 1000 ng/mL [facility] Barbiturates Screen Urine Negative Negative : < 200 ng/mL [facility] Benzodiazepine Screen Urine Positive(A) Negative : < 200 ng/mL [facility] Comment: Positive urine benzodiazepine screening results should be confirmed by another generally accepted non-immunological method such as gas chromatography or mass spectrometry. ? Opiates Urine Positive(A) Negative : < 300 ng/mL [facility] Comment: Positive urine opiate screening results should be confirmed by another generally accepted non-immunological method such as gas chromatography or mass spectrometry. ? Cocaine Metabolites Urine Negative Negative : < 300 ng/mL [facility] Phencyclidine Screen Urine Negative Negative : < 25 ng/ml [facility] Cannabinoids Screen Urine Positive(A) Negative : <50 ng/mL [facility] Comment: Positive urine cannabinoids (THC) screening results should be confirmed by another generally accepted non-immunological method such as gas chromatography or mass spectrometry. ? Methadone Screen Urine Negative Negative : < 300 ng/mL [facility] Urine specimen (specimen) 04/19/2017 11:33 AM CDT 04/19/2017 11:33 AM CDT Narrative [facility] - 04/19/2017 11:52 AM CDT The Urine Toxicology Screening Panel does not screen for Propoxyphene, Meprobamate, Carisoprodol, Trazodone, uuwv-ycu-lbztfnd medications and/or volatiles (Acetone, Isopropanol, Methanol or Ethylene Glycol). Ethanol, Salicylate, Acetaminophen, Tricyclic Antidepressants and several therapeutic drugs may be individually assayed in serum or plasma specimen. Toxicology testing by the [facility] is an aid to medical diagnosis and treatment of patients. No documented chain of custody was maintained. Results are intended to be used for clinical purposes only. ? Kain Wellington MD LAB - URINE CHEMISTR Y ORDERABLES [facility] [address] [place] [address] * (ABNORMAL) URINALYSIS REFLEX TO MICROSCOPIC NO CULTURE (04/19/2017 11:31 AM CDT) Only the most recent of11 resultswithin the time period is included. Color UA Yellow Straw, Yellow, Colorless, Light Yellow [facility] Clarity UA Clear Clear [facility] Specific [place] UA 1.010 1.001 - 1.030 [facility] pH UA 7.5 5.0 - 8.0 [facility] Protein UA Negative <=20 mg/dL [facility] Glucose UA Negative Negative mg/dL [facility] Ketone UA 40(A) Negative mg/dL [facility] Bilirubin UA Negative Negative mg/dL [facility] Blood UA Trace(A) Negative [facility] Nitrite UA Negative Negative [facility] Leukocyte Esterase Negative Negative [facility] Urobilinogen UA <2.0 <2.0 mg/dL [facility] RBC UA 5 0 - 8 /HPF [facility] WBC UA 1 0 - 2 /HPF [facility] Squamous Epithelial Cells UA 1 0 - 1 /HPF [facility] Mucus UA Few(A) None /LPF [facility] Hyaline Casts UA 2 0 - 2 /LPF [facility] Urine specimen (specimen) 04/19/2017 11:31 AM CDT 04/19/2017 11:33 AM CDT Kain Wellington MD LAB - URINALYSIS ORD ERABLES Performing Organization Address City/[facility]/ZIP Co de Phone Number [address] [phone] * LIPASE BLOOD (04/19/2017 11:03 AM CDT) Only the most recent of2 resultswithin the time period is included. Pathologist [facility] Lipase 10 8 - 78 Units/L [facility] Blood specimen (specimen) BLOOD SPECIMEN / Unknown 04/19/2017 11:03 AM CDT 04/19/2017 11:10 AM CDT Kain Wellington MD LAB - CHEMISTRY ORDE RABLES Performing Organization Address City/[facility]/ZIP Co de Phone Number [address] [phone] * (ABNORMAL) BASIC METABOLIC PANEL (CALCIUM TOTAL) (04/18/2017 3:51 AM CDT) Only the most recent of50 resultswithin the time period is included. BUN 5(L) 7 - 26 mg/dL [facility] Creatinine 0.6 0.6 - 1.2 mg/dL [facility] Sodium 142 136 - 145 mmol/L [facility] Potassium 3.3(L) 3.5 - 4.5 mmol/L [facility] Chloride 109(H) 98 - 107 mmol/L [facility] CO2 24 22 - 29 mmol/L [facility] Glucose 96 70 - 115 mg/dL [facility] Calcium 8.1(L) 8.4 - 10.2 mg/dL [facility] Anion Gap 12 8 - 18 [facility] BUN/Creatinine Ratio 8 7 - 23 [facility] Osmolality Calculated 291 270 - 300 mOsm/kg [facility] eGFR >60 >60 mL/min/1.7 3 m2 [facility] Blood specimen (specimen) BLOOD SPECIMEN / Unknown 04/18/2017 3:51 AM CDT 04/18/2017 4:12 AM CDT Yanelis Alas MD LAB - CHEMISTRY [facility] Performing Organization Address City/[facility]/[place] [address], [facility] [phone] * MAGNESIUM BLOOD (04/18/2017 3:51 AM CDT) Only the most recent of82 resultswithin the time period is included. Magnesium 1.8 1.6 - 2.6 mg/dL [facility] Blood specimen (specimen) BLOOD SPECIMEN / Unknown 04/18/2017 3:51 AM CDT 04/18/2017 4:12 AM CDT Yanelis Alas MD LAB - CHEMISTRY [facility] Performing Organization Address [facility] [place] [address], [facility] [phone] * HEPATITIS B SURFACE ANTIGEN W RFLX CONFIRMATION (04/18/2017 3:51 AM CDT) Only the most recent of2 resultswithin the time period is included. Hepatitis B Virus Surface Antigen Non-reacti ve Non-reacti ve [facility] Blood specimen (specimen) BLOOD SPECIMEN / Unknown 04/18/2017 3:51 AM CDT 04/18/2017 4:16 AM CDT Yanelis Alas MD LAB - CHEMISTRY [facility] Performing Organization Address [facility] [place] [address], [facility] [phone] * T4 FREE (04/18/2017 3:51 AM CDT) Only the most recent of2 resultswithin the time period is included. Pathologist [facility] T4 Free 0.9 0.7 - 1.5 ng/dL [facility] Blood specimen (specimen) BLOOD SPECIMEN / Unknown 04/18/2017 3:51 AM CDT 04/18/2017 4:12 AM CDT Yanelis Alas MD LAB - CHEMISTRY [facility] Performing Organization Address City/[facility]/ZIP Co de Phone Number [address] [phone] * CORTISOL BLOOD AM (04/18/2017 3:51 AM CDT) [facility] Cortisol AM 5.0 3.7 - 19.4 mcg/dL [facility] Blood specimen (specimen) BLOOD SPECIMEN / Unknown 04/18/2017 3:51 AM CDT 04/18/2017 4:12 AM CDT Yanelis Alas MD LAB - CHEMISTRY [facility] Performing Organization Address [facility] Co de Phone Number [address] [phone] * HEPATITIS C AB SCREEN RFLX PCR QUANT (04/18/2017 3:51 AM CDT) [facility] Hepatitis C Antibody Non-react teena Non-reac tive [facility] Comment: Hepatitis C Antibody screen indicates [...] [facility] Performing Organization Address [facility]/ZIP Co de Phone Number [address] [phone] * EKG 12-LEAD (04/18/2017 12:00 AM CDT) [...] rhythm Confirmed by Andie Watkins LNanda ([id number]), photograph editor LIBERT[employer] LAW ([id number]) on 04/27/2017 12:09:34 [...] 11:30 PM. Dictated by Frank Nixon MD (radiology physician assistant). I, Dr. LEOBARDO LE M.D. have personally [...] the right aspect of the partially sacralized [id number] body is unchanged from prior PET/CT where [...] 11:30 PM. Dictated by Frank Nixon MD (radiology physician assistant). I, Dr. LEOBARDO LE M.D. have personally [...] (04/17/2017 8:50 PM CDT) Test Urine neg [facility] Urine specimen (specimen) 04/17/2017 8:50 PM CDT Amparo Tompkins MD LAB - POINT OF CARE ORDERABLES Performing Organization Address City/[facility] Co de Phone Number [facility] * XR CHEST 1VW PORTABLE (04/17/2017 8:25 PM CDT) Only the most recent of10 resultswithin the time period is included. Anatomical Region Laterality Modality Chest Other Impressions 04/18/2017 12:29 PM CDT IMPRESSION: Low lung volumes with bibasilar opacities, likely representing atelectasis and/or airspace disease with possible small effusions. Dictated by Colin Nick MD (radiology physician assistant). I, Dr. LEOBARDO LE M.D. have personally [...] imaged. Procedure Note Candy Le MD - 03/30/2018 EXAMINATION: PX CHEST 1 VW HISTORY: near [...] small effusions. Dictated by Colin Nick MD (radiology physician assistant). I, Dr. LEOBARDO LE M.D. have personally reviewed and interpreted thisexamination/study. This report was electronically signed by LEOBARDO LE M.D. on04/18/2017 12:29 PM . Amparo Tompkins MD DIAGNOSTIC IMAGING O RDERABLES * (ABNORMAL) GLUCOSE ACCUCHECK (04/17/2017 8:13 PM CDT) Only the most recent of9 resultswithin the time period is included. Glucose, Fingerstick 118(H) 70-115mg/d L mg/dL [facility] ([facility]) Comment:Quality Control Head: JANE ALVARADO 04/17/2017 8:13 PM CDT Dylan Pollack MD LAB - CHEMISTRY [facility] ([facility]) * LACTIC ACID BLOOD (04/17/2017 8:09 PM CDT) Lactic Acid-Stat 1.1 0.5 - 2.0 mmol/L [facility] Blood specimen (specimen) BLOOD SPECIMEN / Unknown 04/17/2017 8:09 PM CDT 04/17/2017 8:17 PM CDT Amparo Tompkins MD LAB - CHEMISTRY [facility] [address] [phone] * TROPONIN I (04/17/2017 8:09 PM CDT) Only the most recent of4 resultswithin the time period is included. [facility] Troponin I <0.010 <0.032 ng/mL [facility] Blood specimen (specimen) BLOOD SPECIMEN / Unknown 04/17/2017 8:09 PM CDT 04/17/2017 8:17 PM CDT Amparo Tompkins MD LAB - CHEMISTRY [facility] [address] [phone] * (ABNORMAL) D-DIMER (02/18/2017 9:22 PM CDT) [facility] D-Dimer Quantitative 0.67(H) <=0.50 mcg/mL FEU [facility] Comment: In the absence of clinical [...] Decker MD LAB - COAGULATION OR DERABLES [address] [phone] * XR CHEST 1VW (02/18/2017 4:46 PM [...] RIGHT 4VW OR MORE (09/09/2016 10:34 AM CONTENT CHECKER) Only the most recent of2 resultswithin the time period is included. Anatomical Region Laterality Modality Lower Extremity Other Impressions 09/09/2016 12:01 PM CONTENT CHECKER Impression: Mild osteoarthritis of both knees. This report was electronically signed by ALMAS GREEN M.D. ??on 09/09/2016 12:01 PM . Narrative 09/09/2016 12:01 PM CONTENT CHECKER Examination: 1. Left knee minimum 4 views [...] XR THORACIC SPINE 2VW (07/12/2016 3:21 PM CONTENT CHECKER) Only the most recent of15 resultswithin the time period is included. Anatomical Region Laterality Modality Spine Other Impressions 07/13/2016 8:30 AM CONTENT CHECKER IMPRESSION: The patient is status post instrumented posterior spinal fusion from C5 through T12 with paired vertical rods, pedicle screws, and a cerclage wire. The instrumentation appears intact without evidence of failure. A T6 compression fracture is unchanged. No new fractures are identified. The spinal alignment is normal. Dictated by Peter Pineda MD (radiology physician assistant). Dr. YVES Muller M.D. have personally reviewed and interpreted this examination/study. This report was electronically signed by YVES MARX M.D. ??on 07/13/2016 8:30 AM . Narrative 07/13/2016 8:30 AM CONTENT CHECKER EXAMINATION: XR SPINE THORACIC 2 VWS HISTORY: [...] status post instrumented posterior spinal fusion from [id number] T12 with paired vertical rods, pedicle screws, and a cerclagewire. The instrumentation appears intact without evidence of failure. A [id number] fracture is unchanged. No new fractures are identified. The spinal alignment is normal. Dictated by Peter Pineda MD (radiology physician assistant). Dr. YVES Muller M.D. have personally reviewed [...] Type 22F 1.30 ug/mL [facility] ([facility]) Pneumo Antibody Type 23F 0.40 ug/mL [facility] Pneumo Antibody Type 33F 0.56 ug/mL [facility] (BEAKER) Interpretation Pneumo Serotype See Note [facility] Comment: INTERPRETIVE INFORMATION: Streptococcus pneumoniae Antibodies, IgG [...] 2015;22(2):148-152. Test developed and characteristics determined by [employer]. See Compliance Statement B: [email or web address] 12/09/2015 3:14 PM CDT 12/09/2015 3:24 PM [...] [facility] (10/25/2015 9:19 AM CDT) [facility] Flow Cytometry Specimen: Blood Reference:[id number] Reason for test: Markers: 9 Flow Cytometry [...] %CD19 & CD27+IgD- ? 7 %CD19 & KS09-FyW+ ? 98 Cell Region A: Lymphocytes Surface [...] ?0-1 ? IgD ? 3-15 CD16 ?0-23 ?[facility] ? 3-12 CD19 ?8-24 ?Lambda ?3-7 CD20 ?7-17 ?HLA-DR ?9-25 CD23 ?2-16 ?TdT ? 0 Test performed at [facility], [address] [place] [address] ??[id number] This test was developed and its performance [...] be reported by the physician to the [facility] Health authority. [facility] PATH[facility]Y LAB (RAJI) Blood specimen (specimen) BLOOD SPECIMEN / Unknown 10/25/2015 9:19 AM CDT 10/25/2015 10:05 AM CDT Castillo Velásquez MD LAB - PATHOLOGY/CYTO LOGY ORDERABLES [facility] ([facility]) * TETANUS ANTIBODY (10/25/2015 9:19 AM CDT) Tetanus Antibody IgG 0.57 <0.10 IU/mL [facility] ([facility]) Comment: ? Interpretation: ? Non-Protective ?<0.10 ? Protective ? >=0.10 Results for this test are for research purposes only by the assay's inspector timers. ??The performance characteristics of this product have not been established. ??Results should not be used as a diagnostic procedure without confirmation of the diagnosis by another medically established diagnostic product or procedure. Blood specimen (specimen) BLOOD SPECIMEN / Unknown 10/25/2015 9:19 AM CDT 10/25/2015 10:05 AM CDT Narrative [facility] ([facility]) - 10/29/2015 11:20 AM CDT 0.4 ml Serum, Red-top tube or gel-barrier tube, room temperature. Performed at: ??01 - Lab[address] ??[id number] Senior Research Consultant: Kendrick Cardenas MD, Phone: ??[phone] Castillo Velásquez MD LAB - CHEMISTRY CHRISTPOHER DE LA GARZA Performing Organization Address [facility]/State/[facility] Phone Number [facility] SILAS) * (ABNORMAL) DIPHTHERIA ANTIBODY (10/25/2015 9:19 AM CDT) Diphtheria Antitoxoid Antibody <0.10(L) <0.10 IU/mL [facility] ([place]) Comment: ? Interpretation: ? Non-Protective ?<0.10 ? Protective ? >=0.10 For research use only. Blood specimen (specimen) BLOOD SPECIMEN / Unknown 10/25/2015 9:19 AM CDT 10/25/2015 10:05 AM CDT Narrative [facility] ([place]) - 10/30/2015 1:16 PM CDT 0.5 mL serum red-top tube or gel-barrier tube, Refrigerate Performed at: ??01 - [address] ??[id number] Senior Research Consultant: Kendrick Cardenas MD, Phone: ??[phone] Castillo Velásquez MD LAB - CHEMISTRY CHRISTOPHER DE LA GARZA Performing Organization Address [facility] Co de Phone Number [facility] * (ABNORMAL) COMPLEMENT TOTAL (10/25/2015 9:19 AM CDT) Pathologist [facility] Complement Total CH50 >60(H) 42 - 60 U/mL [facility]) Blood specimen (specimen) BLOOD SPECIMEN / Unknown 10/25/2015 9:19 AM CDT 10/25/2015 10:05 AM CDT Narrative [facility] ([facility]) - 10/28/2015 3:15 PM CDT 1 mL serum, red-top tube or gel barrier tube, Allow specimen to clot at room temperature for 15 to 30 minutes. Remove serum after centrifugation, and place in plastic transport tube. Transport frozen Performed at: ??01 - [address] ??[id number] Senior Research Consultant: Edison Chavez PhD, Phone: ??[phone] Castillo Velásquez MD LAB - CHEMISTRY CHRISTOPHER DE LA GARZA Performing Organization Address City/[facility]/ZIP Co de Phone Number [facility]) * IGM BLOOD (10/25/2015 9:19 AM CDT) Only the most recent of2 resultswithin the time period is included. Pathologist [facility] IgM 210 22 - 293 mg/dL [facility] Blood specimen (specimen) BLOOD SPECIMEN / Unknown 10/25/2015 9:19 AM CDT 10/25/2015 10:05 AM CDT Castillo Velásquez MD LAB - CHEMISTRY [place] [address], [facility] [phone] * IGG BLOOD (10/25/2015 9:19 AM CDT) Only the most recent of4 resultswithin the time period is included. IgG 794 540 - 1,822 mg/dL [facility] Blood specimen (specimen) BLOOD SPECIMEN / Unknown 10/25/2015 9:19 AM CDT 10/25/2015 10:05 AM CDT Narrative [facility] - 10/25/2015 10:40 AM CDT 1 mL serum, Red- top tube or gel barrier tube Castillo Velásquez MD LAB - CHEMISTRY CHRISTOPHER DE LA GARZA Performing Organization Address [facility]/[place] [address], [facility] [phone] * IGA BLOOD (10/25/2015 9:19 AM CDT) Only the most recent of2 resultswithin the time period is included. IgA 204 87 - 534 mg/dL [facility] Blood specimen (specimen) BLOOD SPECIMEN / Unknown 10/25/2015 9:19 AM CDT 10/25/2015 10:05 AM CDT Narrative [facility] - 10/25/2015 10:40 AM CDT 1 mL serum, Red-top tube or gel barrier tube, Room temperture Castillo Velásquez MD LAB - CHEMISTRY [place] [address], [facility] [phone] * XR THORACOLUMBAR SPINE 2VW (07/31/2015 10:50 AM CONTENT CHECKER) Anatomical Region Laterality Modality Spine Other Impressions 07/31/2015 4:45 PM CONTENT CHECKER Impression: Unchanged postoperative appearance of instrumented posterior [...] 4:45 PM . Narrative 07/31/2015 4:45 PM CONTENT CHECKER Exam: XR SPINE THORACOLUMBAR 2 VWS, XR [...] (corrected for NRBC) 11.1 10? 3 /uL [facility] Total Cell Count 100 [facility] Neutrophils Absolute Manual 7.77(H) 1.60 - 7.00 10? 3 /uL [facility] Comment:(BANDS+SEGS) x WBC = NEUT # (ANC) Lymphocyte Absolute Manual 1.55 0.80 - 2.90 10? 3 /uL [facility] Monocytes Absolute Manual 1.44(H) 0.14 - 0.66 10? 3 /uL [facility] Eosinophils Absolute Manual 0.33(H) 0.00 - 0.22 10? 3 /uL [facility] Band % Manual 3 0 - 10 % [facility] Neutrophil % Manual 67(H) 30 - 60 % [facility] Lymphocyte % Manual 14(L) 20 - 45 % [facility] Monocytes % Manual 13(H) 2 - 10 % [facility] Eosinophils % Manual 3 1 - 6 % [facility] Platelet Estimate Adequate Adequate [facility] Anisocytosis 1+(A) None [facility] Polychromasia 1+(A) None [facility] Blood specimen (specimen) BLOOD SPECIMEN / Unknown 03/27/2015 3:25 AM CDT 03/27/2015 3:55 AM CDT Reji Virk MD LAB - HEMATOLOGY ORD ERABLES [facility] [address] [phone] * [place] YUSRA SURGERY (03/25/2015 2:44 PM [...] included. pH Arterial 7.43 7.35 - 7.45 [facility] pCO2 Arterial 35 35 - 45 mmHg [facility] pO2 Arterial 170(H) 77 - 101 mmHg [facility] HCO3 Arterial 22.4 22.0 - 26.0 mmol/L [facility] TCO2 Arterial 23.4(L) 25.0 - 29.0 mmol/L [facility] Base Excess Arterial -1.4 -2.0 - 2.0 mmol/L [facility] Hemoglobin Arterial 11.5(L) 12.0 - 15.5 g/dL [facility] Oxyhemoglobin Arterial 98.3 95.0 - 100.0 % [facility] Carboxyhemoglobin 0.3 0.0 - 3.0 % [facility] Methemoglobin 0.3 0.0 - 2.0 % [facility] Ionized Calcium Whole Blood 1.13 mmol/L [facility] Adjusted Ionized Calcium 1.15(L) 1.19 - 1.34 mmol/L [facility] Sodium Whole Blood 133(L) 135 - 145 mmol/L [facility] Potassium Whole Blood 3.6 3.5 - 5.5 mmol/L [facility] Chloride Whole Blood 104 101 - 111 mmol/L [facility] Glucose Whole Blood 111(H) 70 - 110 mg/dL [facility] Lactic Acid Whole Blood 1.5 0.5 - 3.4 mmol/L [facility] Blood specimen (specimen) 03/25/2015 2:20 PM CDT 03/25/2015 2:22 PM CDT [facility] - 03/25/2015 2:27 PM CDT FIO2->60 Reji Virk MD LAB - BLOOD GASES OR DERABLES Performing Organization Address [facility]/ZIP Co de Phone Number [address] [phone] * CULTURE AEROBIC (03/25/2015 1:09 PM CDT) Culture Aerobic No Growth at 1 week [facility] Gram Stain No Organism Seen [facility] Bone tissue specimen (specimen) 03/25/2015 1:09 PM CDT 03/25/2015 5:18 PM CDT [facility] - 04/01/2015 12:39 PM CDT Posterior cervical spine Specimen Type->Bone Gram Stains are routinely screened for the presence of Polymorphonuclear Cells. Reji Virk MD LAB - MICROBIOLOGY O ROSSI Performing Organization Address [facility] Co de Phone Number [address] [phone] * CULTURE ANAEROBE (03/25/2015 1:09 PM CDT) Culture Anaerobic No Growth at 1 week [facility] Bone tissue specimen (specimen) 03/25/2015 1:09 PM CDT 03/25/2015 5:18 PM CDT [facility] - 04/01/2015 12:49 PM CDT Posterior cervical spine Specimen Type->Bone Reji Virk MD LAB - MICROBIOLOGY O RDVICENTA Performing Organization Address [facility] Co de Phone Number [address] [phone] * HCG BETA BLOOD QUANTITATIVE (03/25/2015 11:45 AM CDT) Beta-hCG Total Quantitative 2 <5 mIU/mL [facility] Comment: HCG Numeric Result Interpretation: ? Non- Females: ? < 5 mIU/mL ? Post-Menopausal Females: ??< 7 mIU/mL ? Blood specimen (specimen) BLOOD SPECIMEN / Unknown 03/25/2015 11:45 AM CDT 03/25/2015 11:50 AM CDT Reji Virk MD LAB - CHEMISTRY CHRISTOPHER DE LA GARZA [address] [phone] * COMPLETE PFT W/WO BRONCHODILATOR (03/11/2015 12:42 PM CDT) Impressions [facility] - 03/11/2015 12:42 PM CDT [facility] DEPARTMENT OF PULMONARY, CRITICAL CARE, AND [...] of Pulmonary, Critical Care, & Sleep Medicine [facility] [employer] Pager 03/12/2015 10:40 AM I have personally reviewed pulmonary function test data and finding. I concur with fellow's note. Samuel Urbano MD Narrative Procedure Note Provider, MD Alexis - 01/07/2018 IMPRESSION [facility] DEPARTMENT OF PULMONARY, CRITICAL CARE, AND [...] of Pulmonary, Critical Care, & Sleep Medicine [facility] [employer] Pager 03/12/2015 10:40 AM I have personally reviewed pulmonary function test data and finding. I concur with fellow's note. Samuel Urbano MD Lowell Pop MD RESPIRATORY THERAPY ORDERABLES [facility] RAD[facility] * (ABNORMAL) BLOOD GASES ART - PFT (03/11/2015 9:21 AM CDT) pH Arterial 7.43 7.35 - 7.45 [facility] pCO2 Arterial 40 35 - [address] [facility] pO2 Arterial 76(L) 77 - 101 mmHg [facility] HCO3 Arterial 26.1(H) 22.0 - 26.0 mmol/L [facility] TCO2 Arterial 27.3 25.0 - 29.0 mmol/L [facility] Base Excess Arterial 2.2(H) -2.0 - 2.0 mmol/L [facility] Hemoglobin Arterial 12.6 12.0 - 15.5 g/dL [facility] Oxyhemoglobin Arterial 95.7 95.0 - 100.0 % [facility] Carboxyhemoglobin 1.3 0.0 - 3.0 % [facility] Methemoglobin 0.1 0.0 - 2.0 % [facility] FI O2 Arterial 21.0 % [facility] Blood specimen (specimen) ARTERY SPECIMEN / Unknown 03/11/2015 9:21 AM CDT 03/11/2015 9:48 AM CDT Narrative [facility] - 03/11/2015 10:56 AM CDT FiO2->21 Lowell Pop MD LAB - BLOOD GASES O RDERABLES Performing Organization Address City/[facility]/ZIP Co de Phone Number [address] [phone] * TYPE + SCREEN PANEL (02/19/2015 11:59 [...] BLOOD BANK OR DERABLES Performing Organization Address City/[facility] Co de Phone Number [facility] BLOOD BANK LAB [address] [place] [address] * FLOW CYTOMETRY RITUXAN BLOOD PANEL (11/29/2014 2:49 PM CDT) Only the most recent of4 resultswithin the time period is included. Rituxan Panel Flow Cytometry Specimen: Blood Reference:[id number] Reason for test: Rituxan Requested Markers: 7 [...] ?0-1 ? IgD ? 3-15 CD16 ?0-23 ?[facility] ? 3-12 CD19 ?8-24 ?Lambda ?3-7 CD20 ?7-17 ?HLA-DR ?9-25 CD23 ?2-16 ?TdT ? 0 Test performed at [facility], [address] [place] [address] ??[id number] This test was developed and its performance [...] be reported by the physician to the [facility] authority. Interpretation: Marker ?Absolute count (cells/ul) CD3 ? 1614 CD4 (CD4+CD3+) ?771 CD8 (CD8+CD3+) ?723 CD20 ?265 CD19 ?265 CD45 ?2409 CD56 ?145 This case has been personally reviewed and interpreted by the attending (teaching) pathologist. Final Diagnosis performed by Meera Douglas MD. Electronically signed 12/01/2014 [facility] ([place]) Blood specimen (specimen) 11/29/2014 2:49 PM CDT 11/29/2014 3:13 PM CDT Castillo Max MD LAB - PATHOLOGY/CY TOLOGY ORDERABLES [facility]OLOGY LAB ([place]) * LAB MISC TEST (11/29/2014 2:30 PM CDT) Pathologist [facility] Reference Lab Results SEE SCANNED REPORT [facility] REF LAB NON INTERF Other (qualifier value) 11/29/2014 2:30 PM CDT 11/29/2014 3:53 PM CDT Castillo Max MD LAB SEND OUT Performing Organization Address [facility] Co de Phone Number [facility] REF LAB NON INTERF * INFLUENZA A+B ANTIGEN RAPID (11/29/2014 2:30 PM CDT) Only the most recent of2 resultswithin the time period is included. Pathologist [facility] Influenza A Rapid Test Negative Negative [facility] Influenza B Rapid Test Negative Negative [facility] Nasopharyngeal SPECIMEN FROM NASOPHARYNGEAL STRUCTURE / Unknown 11/29/2014 2:30 PM CDT 11/29/2014 3:[address] [facility] - 11/29/2014 3:39 PM CDT Specimen Type->Nasopharyngeal If clinical conditions warrant, molecular testing for Influenza offers superior sensitivity (>98%) and is available by ordering INFLUENZA/RSV GILLIAN [[id number]]. ??To add to current sample within [address] an electronic or signed manual requisition order and call the [facility] Microbiology Lab at [phone] with your request. ?? The positive and negative predictive values of rapid influenza testing vary considerably depending upon the prevalence on influenza in the community. *False-positive results are more likely to occur when disease prevalence is low. *False-negative results are more likely to occur when disease prevalence is high. *Current local influenza prevalence can be obtained by calling the Director of Microbiology at [phone]. Castillo Max MD LAB - MICROBIOLOGY ORDERABLES Performing Organization Address [facility] Co de Phone Number [address] [phone] * CULTURE URINE (08/04/2014 1:01 AM CONTENT CHECKER) Only the most recent of19 resultswithin the time period is included. Pathologist [facility] Culture Urine Less than 10,000 CFU/ML of Normal Fecal Heidi [facility] Comment: Urine specimen (specimen) URINE SPECIMEN OBTAINED BY CLEAN CATCH PROCEDURE / Unknown 08/04/2014 1:01 AM CONTENT CHECKER 08/04/2014 1:10 AM CONTENT CHECKER Narrative [facility] - 08/06/2014 12:17 PM CONTENT CHECKER Specimen Type->Urine Andrea Briscoe MD LAB - MICROBIOLOGY O RDERABLES Performing Organization Address [facility] Co de Phone Number [address] [phone] * VIRAL RESPIRATORY PANEL BY RT-PCR (08/04/2014 12:35 AM CONTENT CHECKER) Pathologist [facility] Influenza A Negative Negative [facility]P (BEAKER) Influenza B Negative Negative [facility] (BEAKER) RSV A Negative Negative ST. [...] (BEAKER) Other (qualifier value) 08/04/2014 12:35 AM CONTENT CHECKER 08/04/2014 12:53 [address] [facility] (BEAKER) - 08/07/2014 6:25 AM CONTENT CHECKER Performed at: ??01 - [facility] [address] ??[id number] Senior Research Consultant: Kendrick Cardenas MD, Phone: ??[phone] Andrea Briscoe MD LAB - MICROBIOLOGY O ROSSI Performing Organization Address [facility]/ZIP Co de Phone Number [facility] ([facility]) * CULTURE BLOOD (08/03/2014 8:08 PM CONTENT CHECKER) Only the most recent of50 resultswithin the time period is included. Pathologist [facility] Culture Blood No Growth at 5 days [facility] Blood specimen (specimen) BLOOD SPECIMEN / Unknown 08/03/2014 8:08 PM CONTENT CHECKER 08/03/2014 8:20 PM CONTENT CHECKER Narrative [facility] - 08/08/2014 8:30 PM CONTENT CHECKER Specimen Type->Blood Robin Kemp MD LAB - MICROBIOLOGY O ROSSI Performing Organization Address [facility] Co de Phone Number [address] [phone] * B-TYPE NATRIURETIC PEPTIDE (08/03/2014 8:05 PM CONTENT CHECKER) [facility] BNP 25 See Comment pg/mL [facility] Comment: A decision threshold of 100 [...] BLOOD SPECIMEN / Unknown 08/03/2014 8:05 PM CONTENT CHECKER 08/03/2014 8:18 PM CONTENT CHECKER Robin Kemp MD LAB - CHEMISTRY CHRISTOPHER DE LA GARZA [facility] Organization Address City/State/ZIP Co de Phone Number [address] [phone] * CT CHEST WO CONTRAST (08/03/2014 5:50 PM CONTENT CHECKER) Anatomical Region Laterality Modality Chest Other Impressions 08/04/2014 1:16 PM CONTENT CHECKER IMPRESSION: 1. No acute pulmonary process. 2. [...] on 08/03/2014. Dictated by Lilian North M.D. (radiology physician assistant). I, Dr. PRESTON DELONG M.D. have personally reviewed and interpreted this examination/study. This report was electronically signed by PRESTON DELONG M.D. ??on 08/04/2014 1:16 PM . Narrative 08/04/2014 1:16 PM CONTENT CHECKER EXAMINATION: Computed tomography (CT) of the chest [...] PM on08/03/2014. Dictated by Lilian North M.D. (radiology physician assistant). I, Dr. PRESTON DELONG M.D. have personally reviewed and interpreted thisexamination/study. This report was electronically signed by PRESTON DELONG M.D. on 08/04/20141:16 PM . Robin Kemp MD CT ORDERABLES * (ABNORMAL) C-REACTIVE PROTEIN (06/15/2014 7:30 PM CONTENT CHECKER) C-Reactive Protein 0.7(H) <=0.5 mg/dL [facility] Blood specimen (specimen) BLOOD SPECIMEN / Unknown 06/15/2014 7:30 PM CONTENT CHECKER 06/15/2014 7:36 PM CONTENT CHECKER Lori Foley MD LAB - CHEMISTRY ORDE RABYASH Performing Organization Address [facility] [[email or web address]] de Phone Number [address] [phone] * ERYTHROCYTE SEDIMENTATION RATE (06/15/2014 7:30 PM CONTENT CHECKER) Only the most recent of2 resultswithin the time period is included. Erythrocyte Sedimentation Rate Westergren 16 0 - 20 MM/HR [facility] Blood specimen (specimen) BLOOD SPECIMEN / Unknown 06/15/2014 7:30 PM CONTENT CHECKER 06/15/2014 7:37 PM CONTENT CHECKER Lori Foley MD LAB - HEMATOLOGY ORD ERABLES Performing Organization Address [facility] Co de Phone Number [address] [phone] * MRI CERVICAL SPINE WWO CONT (06/12/2014 8:44 AM CONTENT CHECKER) Only the most recent of3 resultswithin the time period is included. Anatomical Region Laterality Modality Spine Other Impressions 06/12/2014 11:56 AM CONTENT CHECKER IMPRESSION: 1. Slightly increased size of the [...] 11:56 AM . Narrative 06/12/2014 11:56 AM CONTENT CHECKER EXAMINATION: Magnetic resonance imaging (MRI) of the [...] with palpable nodule in the region of K4uwepidkn status post chemotherapy which ended on 03/20/2013. [...] Results Specimen: ??FNA & core biopsy Reference: [id number] Reason for test: Hx. of Hodgkins Lymphoma [...] CD30 ? 0 ? HLA-DR ? 1 ?[facility] ? 0 ? Lambda ? 1 ? CD22 ? 0 ?TdT ? 5 Cell Region B: [place] Surface Marker ?Result (%) ? CD1a ? 84 ?CD2 ? 82 ?CD7 ? 83 ?CD3 ? 44 ?CD4 ? 74 ?CD5 ? 85 ?CD8 ? 69 ? CD10 ? 21 ? CD14 ? 1 ? CD19 ? 3 ? CD20 ? 3 ? CD23 ? 0 ? CD45 ? 86 ? CD15 ? 2 ? CD30 ? 2 ? HLA-DR ? 2 ?[facility] ? 2 ? Lambda ? 1 ? [...] ?0-1 ? IgD ? 3-15 CD16 ?0-23 ?[facility] ? 3-12 CD19 ?8-24 ?Lambda ?3-7 CD20 [...] CD16 ?0-34 ?IgD ? 0-20 CD19 ?0-48 ?[facility] ? 0-6 CD20 ?0-10 ?Lambda ?0-7 CD23 ?0-13 ?HLA-DR ?67-100 TdT ? 0 * The established laboratory minimum viability is 70%. Values below this minimum may result in the failure to find an abnormal population of cells. Test performed at [facility], [address] [facility] ??[id number] This test was developed and its performance [...] and thymoma; correlation with the biopsy specimen ([id number]), fine needle aspiration cytology ([id number]), and the clinical history is required for definitive diagnosis and classification. KM/MS/YC This case has been personally reviewed and interpreted by the attending (teaching) pathologist. Final Diagnosis performed by Meera Douglas MD. Electronically signed 02/23/2014 [facility]Y LAB ([facility]) Other (qualifier value) 02/22/2014 10:40 AM CDT 02/22/2014 10:41 AM CDT [facility] PATHOLOGY LAB ([facility]) - 02/23/2014 5:38 PM CDT Specimen is from IR ??Bone lesion Neoplastic:->Yes Reason for Exam->pt has hx hodgkins lymphoma ?has new bone lesion Castillo Max MD LAB - HEMATOLOGY O RDVICENTA Performing Organization Address [facility] Co de Phone Number [facility]OLOGY LAB ([facility]) * PATHOLOGY/GENETICS HISTORICAL-ONBASE (02/22/2014) Only the most recent of2 resultswithin the time period is included. 02/22/2014 [facility] - 03/08/2014 1:10 PM CDT Historical Provider LAB - CHEMISTRY O RDVICENTA Performing Organization Address [facility] Co de Phone Number [facility] [address] * CT GUIDED NEEDLE PLACEMENT (02/21/2014 [...] performed using 22-gauge Chiba needle. Aspirin the treatment supervisor the since lymphoid cells were present, the treatment supervisor requested to additional core samples to be sent on [facility]. Hence, 4 core samples were acquired [...] lesion, 2 fine needle aspirations were performed -ytbds Chiba needle. Aspirin the treatment supervisor the since lymphoid cellswere present, the treatment supervisor requested to additional core samples to besent [...] The flow cytometric analysis for this biopsy ([id number]) has a non-clonal T cell-predominant population compatible with normal thymus. There is no epithelial neoplasm. PIPE FOREMAN/AF/edk The performance characteristics of all immunohistochemical and indirect immunofluorescence stains (if any) cited in this report were determined by the Histopathology Laboratory of [facility].?? Some of these tests were [...] by Kanika Steiner MD. Electronically signed 02/23/2014 [facility] ([place]) Other (qualifier value) 02/21/2014 4:55 PM CDT 02/22/2014 7:39 AM CDT Narrative [facility] ([facility]) - 02/23/2014 7:36 PM CDT Collection Date->02/21/14 Collection Time-> 4:23 PM Specimen A->Mediastinum Castillo Max MD LAB - PATHOLOGY/CY TOLOGY ORDERABLES [facility]OLOGY LAB ([facility]) * CYTOLOGY NON-ELECTRONIC SENSING EQUIPMENT ASSEMBLER PANEL (STL) (02/21/2014 4:21 PM CDT) Cytology Non-Locomotive Crane Operator Reference: [id number] Specimen: MEDIASTINUM, MASS Clinical History: h/o lymphoma, [...] refer to the concurrent flow cytometric analysis ([id number]) and surgical biopsy specimen ([id number]). ES/OA COMMENT(S): PRELIMINARY DIAGNOSIS: Immediate interpretation by: Dr. Reymundo Allen PASS 1: ??Many lymphoid cells PASS 2: ??Many lymphoid cells This case has been personally reviewed and interpreted by the attending (teaching) pathologist. Initial Evaluation performed by Dax NIELSEN(ASCP). Electronically signed 02/23/2014 Final Diagnosis performed by Mannie Allen MD. Electronically signed 02/23/2014 [facility] LAB ([facility]) Other (qualifier value) 02/21/2014 4:21 PM CDT 02/22/2014 1:11 PM CDT Narrative [facility] PATH[facility] ([facility]) - 02/23/2014 2:39 PM CDT Diagnosis->mediastinal mass Collection Date->02/21/14 Collection Time-> 4:18 PM Specimen A->Mediastinum Castillo Max MD LAB - PATHOLOGY/CY TOLOGY ORDERABLES Performing Organization Address [facility] Co de Phone Number [facility] ([place]) * LAB HISTORICAL RESULTS-ONBASE (04/19/2013) Only the most recent of11 resultswithin the time period is included. 04/19/2013 [facility] - 04/19/2013 2:09 PM CDT Historical Provider MD LAB - CHEMISTRY O RDERABLES Performing Organization Address [facility] Co de Phone Number [facility] [address] * (ABNORMAL) PLATELET COUNT AUTO (04/01/2013 12:25 PM CDT) Only the most recent of15 resultswithin the time period is included. Platelet 42(LL) 150 - 400 10^3/uL [facility] Comment:CHECKED NOT CALLED 8 N Venous blood specimen (specimen) 04/01/2013 12:25 PM CDT 04/01/2013 12:32 PM CDT [facility] - 04/01/2013 1:24 PM CDT Please draw post transfusion Castillo Max MD LAB - HEMATOLOGY O RDERABLES Performing Organization Address [facility] Co de Phone Number [facility] [address] [phone] * PREPARE PLATELET PHERESIS UNIT(S) (04/01/2013 9:45 AM CDT) Only the most recent of11 resultswithin the time period is included. Pathologist [facility] Blood Product [id number] ? A- ?[id number]-[id number] ? TRANSFUSED ? 04/01/13 1107 ?? [facility] 04/01/2013 9:45 AM CDT 04/01/2013 9:45 AM CDT Castillo Max MD LAB - BLOOD BANK O ROSSI Performing Organization Address [facility] [place] [address], [facility] [phone] * CROSSMATCH RBC LEUKOREDUCED (03/30/2013 2:00 PM CDT) Only the most recent of15 resultswithin the time period is included. [facility] Blood Product [id number] ?O+ ?PRN-YQIS-CRO ? XM COMPATIBLE ? [id number] ?O+ ?[id number]-[id number]-[id number] ? TRANSFUSED ? 03/30/13 1712 ?? [facility] 03/30/2013 2:00 PM CDT 03/30/2013 2:44 PM CDT Castillo Max MD LAB - BLOOD BANK O ROSSI Performing Organization Address [facility] [[email or web address]] de Phone Number [address] [phone] * PHOSPHORUS BLOOD (03/27/2013 9:45 AM CDT) Only the most recent of80 resultswithin the time period is included. [facility] Phosphorus 4.4 2.3 - 4.7 mg/dL [facility] Serum 03/27/2013 9:45 AM CDT 03/27/2013 12:01 PM CDT Castillo Max MD LAB - CHEMISTRY OR DERABLES Performing Organization Address [facility] [place] [address], [facility] [phone] * URIC ACID BLOOD (03/22/2013 2:00 AM CDT) Only the most recent of7 resultswithin the time period is included. Uric Acid 6.2 2.6 - 7.2 mg/dL [facility] Serum BLOOD SPECIMEN / Unknown 03/22/2013 2:00 AM CDT 03/22/2013 2:22 AM CDT Castillo Max MD LAB - CHEMISTRY OR DERABLES [address] [phone] * VAS RIGHT VENOUS DUPLEX UE (03/21/2013 9:42 AM CDT) Only the most recent of3 resultswithin the time period is included. Anatomical Region Laterality Modality Other Castillo Max MD VASCULAR LAB ORDER GITA * IR TUNNEL PLEURAL CATH REMOVE (02/21/2013 3:22 PM CDT) Anatomical Region Laterality Modality Other Narrative 02/21/2013 4:51 PM CDT This is an interventional nephrology procedure performed on 02/21/2013 Quality Control Head: Lauri Felipe Attending: Lauri Felipe Procedures performed: [...] case was 40 cm. Accordingly a 6 Gabonese triple-lumen power PICC line was trimmed to [...] an interventional nephrology procedure performed on 02/21/2013 Quality Control Head: Lauri Felipe Attending: Lauri Felipe Procedures performed: [...] an interventional nephrology procedure performed on 02/21/2013 Quality Control Head: Lauri Felipe Attending: Lauri Felipe Procedures performed: [...] case was 40 cm. Accordingly a 6 Gabonese triple-lumen power PICC line was trimmed to [...] an interventional nephrology procedure performed on 02/21/2013 Quality Control Head: Lauri Felipe Attending: Lauri Felipe Procedures performed: [...] an interventional nephrology procedure performed on 02/21/2013 Quality Control Head: Lauri Felipe Attending: Lauri Felipe Procedures performed: [...] case was 40 cm. Accordingly a 6 Gabonese triple-lumen power PICC line was trimmed to [...] an interventional nephrology procedure performed on 02/21/2013 Quality Control Head: Lauri Felipe Attending: Lauri Felipe Procedures performed: [...] an interventional nephrology procedure performed on 02/21/2013 Quality Control Head: Lauri Felipe Attending: Lauri Felipe Procedures performed: [...] case was 40 cm. Accordingly a 6 Gabonese triple-lumen power PICC line was trimmed to [...] an interventional nephrology procedure performed on 02/21/2013 Quality Control Head: Lauri Felipe Attending: Lauri Felipe Procedures performed: [...] period is included. % PRA 44 () [facility] Class 1 LUM SAB Specificity () [facility] Comment: [id number] B:0703 0801 1302 1401-64 1402-65 1501/62 1502/75 1503/72 1512/76 1513/77 1516/63 1518/71 1801 2703 2705 2708 3501 3508 3701 3801 3901 4001/60 4101 4201 4501 4701 4801 5001 5101 5201 5301 5501 5601 5701 5801 7301 7801 8101 Class 1 LUM SAB Mod Risk - () [facility] Class 1 LUM SAB Reportable Comments () [facility] Comment: UNACCEPTABLE ANTIGENS FOR PLATELETS:A33, A66, B7, B8, B13, B14, B15, B17 (B57, B58), B18, B27, B35, B37, B38, B39, B40, B41, B42, B45, B47, B48, B50, B51, B52, B53, B55, B56, B57, B58, B73, B78, B81 Tested Date 3 () [facility] Comment: This test was developed and its performance characteristics determined by the [facility]. ??It has not been cleared or [...] high complexity clinical laboratory testing. Performed at: ??[facility], [address] [place] [address] @ [place], [place] ??[id number] Senior Research Consultant: Daniel Gonzalez MD, 02/14/2013 11:4 5 PM CDT 02/14/2013 11:50 PM CDT Castillo Max MD LAB [facility] Performing Organization Address City/State/[facility] Co de Phone Number [address] [phone] * CULTURE FUNGUS OTHER+FUNGUS SMEAR (02/12/2013 11:00 PM CDT) Culture Fungus-Other NO GROWTH FUNGI. [facility] Nasopharyngeal 02/12/2013 11 :00 PM CDT 02/12/2013 11:06 PM CDT Narrative [facility] - 03/14/2013 9:02 AM CDT SOURCE IS ORAL ULCERS PER EPIC ORDER ADDED CFUN PER PROTOCOL TWO SWABS RECEIVED Castillo Max MD LAB - MICROBIOLOGY ORDERABLES [facility] [address] [phone] * VIRAL CULTURE [facility] (02/12/2013 11:00 PM CDT) Viral Culture General No virus isolated. . [facility] Comment: Performed at: ??[facility] Lab[address] ??[id number] Senior Research Consultant: Kendrick Cardenas MD, Phone: ??[phone] Preliminary Report: No virus isolated at 4 days. ??Next report to follow after 7 days. Performed at: ??[address] ??[id number] Senior Research Consultant: Kendrick Cardenas MD, Phone: ??[phone] Preliminary Report: No virus isolated at 24 hours. Next report to follow after 4 days. Performed at: ??[address] ??[id number] Senior Research Consultant: Kendrick Cardenas MD, Phone: ??[phone] ? !! ??EDITED OR ??CORRECTED RESULTS !! RESULT PREVIOUSLY REPORTED : ?? Preliminary Report: No virus isolated at 24 hours. Next report to follow after 4 days. Performed at: ??[address] ??[id number] Senior Research Consultant: Kendrick Cardenas MD, Phone: ??[phone] NOTIFIED [] AT 1128 ON 02/17/13 ? !! ??EDITED OR ??CORRECTED RESULTS !! RESULT PREVIOUSLY REPORTED : ?? Preliminary Report: No virus isolated at 4 days. ??Next report to follow after 7 days. Performed at: ??[address] ??[id number] Senior Research Consultant: Kendrick Cardenas MD, Phone: ??[phone] Preliminary Report: No virus isolated at 24 hours. Next report to follow after 4 days. Performed at: ??[address] ??[id number] Senior Research Consultant: Kendrick Cardenas MD, Phone: ??[phone] ? !! ??EDITED OR ??CORRECTED RESULTS !! RESULT PREVIOUSLY REPORTED : ?? Preliminary Report: No virus isolated at 24 hours. Next report to follow after 4 days. Performed at: ?? - [address] ??[id number] Senior Research Consultant: Kendrick Cardenas MD, Phone: ??[phone] NOTIFIED [] AT 1128 ON 02/17/13 NOTIFIED [] AT 0941 ON 02/21/13 Nasopharyngeal (Oral Mucosa/Gingiva) 02/12/2013 11:00 PM CDT 02/12/2013 11:06 PM CDT Narrative [facility] - 02/21/2013 9:41 AM CDT Swab oral ulcers for viral culture please Specimen Type->Nasopharyngeal SPECIMEN SOURCE? NASOPHARYNGEAL Castillo Max MD LAB - MICROBIOLOGY ORDERABLES Performing Organization Address [facility] [[email or web address]] de Phone Number [address] [phone] * FUNGUS SMEAR (02/12/2013 11:00 PM CDT) Fungus Smear NO FUNGI SEEN. [facility] Nasopharyngeal (Unspecified) 02/12/2013 11:00 PM CDT 02/12/2013 11:06 PM CDT [facility] - 02/15/2013 9:15 AM CDT Swab oral ulcers for fungal smear please Specimen Type->Nasopharyngeal SOURCE IS ORAL ULCERS PER EPIC ORDER ADDED CFUN PER PROTOCOL TWO SWABS RECEIVED Castillo Max MD LAB - MICROBIOLOGY ORDERABLES Performing Organization Address [facility] Co de Phone Number [address] [phone] * FIBRIN MONOMER (02/11/2013 6:44 PM CDT) Fibrin Monomer NEGATIVE NEGATIVE [facility] Comment: ?DECR. ?? PROL. ??DECR. ? [...] DISEASE (SEE TABLE). ??FOR FURTHER CONSULTATION, CALL ABLE BODIED SEAMAN (EXT. [phone]). 02/11/2013 6:44 PM CDT 02/11/2013 7:08 PM CDT [facility] - 02/11/2013 9:20 PM CDT IS PATIENT ON HEPARIN? (Y OR N) N Castillo Max MD LAB - COAGULATION ORDERABLES Performing Organization Address [facility] Co de Phone Number [address] [phone] * (ABNORMAL) FIBRINOGEN CLAUSS (02/11/2013 6:44 PM CDT) Fibrinogen Clauss 404(H) 170 - 400 mg/dL [facility] 02/11/2013 6:44 PM CDT 02/11/2013 7:08 PM CDT Narrative [facility] - 02/11/2013 7:36 PM CDT IS PATIENT ON HEPARIN? (Y OR N) N Castillo Max MD LAB - COAGULATION ORDERABLES Performing Organization Address [facility] [[email or web address]] de Phone Number [address] [phone] * BLOOD TYPE ABO+ RH PANEL (02/06/2013 11:50 AM CDT) Only the most recent of7 resultswithin the time period is included. Interpretation ABO/Rh Patient O POS [facility] 02/06/2013 11:5 0 AM CDT 02/06/2013 4:29 PM CDT Castillo Max MD LAB - BLOOD BANK O RDERABLES Performing Organization Address [facility] Co de Phone Number [address] [phone] * ANTIBODY SCREEN (02/06/2013 11:50 AM CDT) Only the most recent of5 resultswithin the time period is included. Antibody Screen NEGATIVE [facility] 02/06/2013 11:5 0 AM CDT 02/06/2013 4:29 PM CDT Castillo Max MD LAB - BLOOD BANK O RDERABLES [address] [phone] * ALT (02/02/2013 5:00 AM CDT) ALT 18 0 - 55 Units/L [facility] Serum 02/02/2013 5:00 AM CDT 02/02/2013 5:21 AM CDT Castillo Max MD LAB - CHEMISTRY OR DERABLES Performing Organization Address [facility]/ZIP Co de Phone Number [address] [phone] * AST BLOOD (02/02/2013 5:00 AM CDT) AST 10 5 - 34 Units/L [facility] Serum 02/02/2013 5:00 AM CDT 02/02/2013 5:21 AM CDT Castillo Max MD LAB - CHEMISTRY OR DERABLES Performing Organization Address [facility] Co de Phone Number [address] [phone] * BILIRUBIN TOTAL BLOOD (02/02/2013 5:00 AM CDT) Bilirubin Total 0.6 0.2 - 1.2 mg/dL [facility] Serum 02/02/2013 5:00 AM CDT 02/02/2013 5:21 AM CDT Castillo Max MD LAB - CHEMISTRY OR DERABLES Performing Organization Address [facility] Co de Phone Number [address] [phone] * XR THORACIC SPINE 1VW (01/31/2013 9:00 [...] CHRISTOPHER DE LA GARZA Performing Organization Address [facility]/ZIP Co de Phone Number [address] [phone] * (ABNORMAL) CBC W/O DIFFERENTIAL (12/31/2012 2:30 PM CDT) Only the most recent of4 resultswithin the time period is included. WBC 0.4(LL) 3.5 - 10.5 10^3/uL [facility] Comment: RESULT CONFIRMED BY REPEAT ANALYSIS, CHECKED ?? NOT CALLED 8N RBC 3.02(L) 3.90 - 5.00 10^6/uL [facility] Hemoglobin 8.6(L) 12.0 - 15.5 g/dL [facility] Comment:RESULTS CONFIRMED BY REPEAT ANALYSIS. Hematocrit 24.5(L) 35.0 - 45.0 % [facility] MCV 81.1 81.0 - 97.0 FL [facility] MCH 28.5 28.0 - 34.0 PG [facility] MCHC 35.1 32.0 - 36.0 G/DL [facility] Platelet 8(LL) 150 - 400 10^3/uL [facility] Comment: RESULT CONFIRMED BY REPEAT ANALYSIS, CHECKED ?? NOT CALLED 8N Comment Platelet COMMENT [facility] Comment: WHEN REPORTED, PLT. COUNT HAS BEEN CONFIRMED BY SLIDE REVIEW. RDW 14.5 11.2 - 14.8 % [facility] RDW-SD 42.9 36 - 50 FL [facility] Venous blood specimen (specimen) 12/31/2012 2:30 PM CDT 12/31/2012 2:47 PM CDT Narrative [facility] - 12/31/2012 2:56 PM CDT RN will draw IS PATIENT ON HEPARIN? (Y OR N) N Dylan Dunham MD LAB - HEMATOLOGY MELISSA YADAV Performing Organization Address City/[facility]/[place] [address], [place] [phone] * CLOSTRIDIUM DIFFICILE [facility] + TOXIN A+B (12/28/2012 9:00 PM CDT) Only the most recent of2 resultswithin the time period is included. [facility] C difficile Toxin Assay POSITIVE FOR [CLOSTRIDIUM DIFFICILE ANTIGEN] AND NEGATIVE FOR CLOSTRIDIUM DIFFICILE TOXIN. ASSAY INDETERMINATE. CONFIRMATORY MOLECULAR TESTING IN PROGRESS. ?REFERENCE RANGE = NEGATIVE. ? [facility] Culture Results [facility] Organism ID CLOSTRIDIUM DIFFICILE ANTIGEN [facility] Stool specimen (specimen) STOOL SPECIMEN / Unknown 12/28/2012 9:00 PM CDT 12/28/2012 10:18 PM CDT Narrative [facility] - 12/29/2012 1:50 PM CDT Specimen Type->Feces Dylan Dunham MD LAB - MICROBIOLOGY O ROSSI Performing Organization Address City/[facility]/ZIP Co de Phone Number [address] [phone] * CLOSTRIDIUM DIFFICILE BY PCR (12/28/2012 9:00 PM CDT) [facility] C difficile GILLIAN NEGATIVE. CLOSTRIDIUM DIFFICILE TOXIN GENE IS NOT DETECTED BY NUCLEIC ACID AMPLIFICATION TESTING. ?REFERENCE RANGE = NEGATIVE. [facility] Stool specimen (specimen) 12/28/2012 9:00 PM CDT 12/28/2012 10:18 PM CDT Dylan Dunham MD LAB - MICROBIOLOGY O [employer] Performing Organization Address City/[facility]/ZIP Co de Phone Number [address] [phone] * (ABNORMAL) RETIC COUNT (12/27/2012 1:00 PM CDT) Only the most recent of2 resultswithin the time period is included. [facility] Reticulocyte % 0.1(L) 0.4 - 2.5 % [facility] Comment: * ??PLEASE NOTE NEW REFERENCE RANGE * Reticulocyte Absolute 0.00(L) 0.02 - 0.13 10^6/uL [facility] Comment: * ??PLEASE NOTE NEW REFERENCE RANGE * Venous blood specimen (specimen) 12/27/2012 1:00 PM CDT 12/27/2012 1:12 PM CDT Dylan Dunham MD LAB - HEMATOLOGY ORD ERABLES [address] [phone] * (ABNORMAL) HEPATIC FUNCTION PANEL (12/27/2012 1:00 PM CDT) Only the most recent of27 resultswithin the time period is included. Protein Total 4.9(L) 6.0 - 8.3 g/dL [facility] Albumin 2.7(L) 3.4 - 5.0 g/dL [facility] Bilirubin Total 0.4 0.2 - 1.2 mg/dL [facility] Alkaline Phosphatase 65 40 - 150 Units/L [facility] ALT 16 0 - 55 Units/L [facility] AST 14 5 - 34 Units/L [facility] Albumin/Globulin Ratio 1.2 1.1 - 2.3 [facility] Bilirubin Direct 0.1 0.0 - 0.5 mg/dL [facility] Bilirubin Indirect 0.3 mg/dL [facility] Comment: Unconjugated bilirubin is a calculated value, reference ranges have not been established Venous blood specimen (specimen) 12/27/2012 1:00 PM CDT 12/27/2012 1:12 PM CDT Dylan Dunham MD LAB - CHEMISTRY CHRISTOPHER DE LA GARZA Performing Organization Address City/[facility]/ZIP Co de Phone Number [address] [phone] * HAPTOGLOBIN (12/27/2012 1:00 PM CDT) Haptoglobin 113 14 - 258 mg/dL [facility] Venous blood specimen (specimen) 12/27/2012 1:00 PM CDT 12/27/2012 1:12 PM CDT Dylan Dunham MD LAB - CHEMISTRY CHRISTOPHER DE LA GARZA Performing Organization Address [facility] Co de Phone Number [address] [phone] * (ABNORMAL) CK + CKMB PANEL (12/25/2012 1:45 AM CDT) CK Total 16(L) 30 - 200 Units/L [facility] CK-MB 0.5 0.0 - 6.6 ng/mL [facility] Comment: ? CKMB Reference Range 6.6 [...] LAB - CHEMISTRY CHRISTOPHER DE LA GARZA [address] [phone] * IR JORGE CATH INSERT (12/21/2012 10:22 AM CDT) Anatomical Region Laterality Modality Other Narrative 12/21/2012 4:23 PM CDT This is an Interventional Nephrology procedure performed on 12/21/2012 Quality Control Head: Lauri Felipe Attending: ??Lauri Felipe Procedures performed: [...] ??This allowed the placement of a 5 Gabonese trocar which in turn allowed the placement [...] an Interventional Nephrology procedure performed on 12/21/2012 Quality Control Head: Lauri Felipe Attending: Lauri Felipe Procedures performed: [...] This allowed the placement of a 5 Gabonese trocar which in turnallowed the placement of [...] Bilirubin Direct 0.2 0.0 - 0.5 mg/dL [facility] Bilirubin Indirect 0.3 mg/dL [facility] Comment: Unconjugated bilirubin is a calculated value, reference ranges have not been established 12/13/2012 3:45 AM CDT 12/13/2012 4:17 AM CDT John Massey MD LAB - CHEMISTRY CHRISTOPHER DE LA GARZA [facility] Organization Address City/State/ZIP Co de Phone Number [address] [phone] * HLA TYPING DNA LOW RESOLUTION A,B,C (12/12/2012 12:30 PM CDT) ABC DNA A1 02 () [facility] ABC DNA A1 29 () [facility] ABC DNA B1 44 () [facility] ABC DNA B2 - () [facility] ABC DNA BW1 4 () [facility] ABC DNA BW2 - () [facility] ABC DNA C1 05 () [facility] ABC DNA C2 16 () [facility] ABC DNA Comments - () [facility] ABC DNA Methodology SSOP () [facility] ABC DNA Test Date 3 () [facility] Comment: This test was developed and its performance characteristics determined by the [facility]. ??It has not been cleared or [...] high complexity clinical laboratory testing. Performed at: ??[facility], [address] [place] [address] ??[id number] Senior Research Consultant: Daniel Gonzalez MD, Line 12/12/2012 12:3 0 PM CDT 12/12/2012 12:37 PM CDT John Massey MD LAB - BLOOD BANK ORD ERABLES Performing Organization Address City/[facility]/ZIP Co de Phone Number [address] [phone] * (ABNORMAL) PLATELET ANTIBODY PANEL (12/12/2012 11:00 AM CDT) Pathologist [facility] HLA Class 1 Antibody Screen Positive(A) Negative [facility] IIb/IIIa Antibody Negative Negative [facility] Ib/IX Antibody Negative Negative [facility] Ia/IIa Antibody Negative Negative [facility] Comment: Performed at: ?? - [facility] ??[id number] Senior Research Consultant: Kendrick Cardenas MD, Phone: ??[phone] Blood specimen (specimen) (Line) 12/12/2012 11:00 AM CDT 12/14/2012 1:05 PM CDT John Massey MD LAB - CHEMISTRY ORDE RABLES Performing Organization Address [facility]/ZIP Co de Phone Number [address] [phone] * UREA NITROGEN URINE RANDOM (12/04/2012 2:00 PM CDT) Pathologist [facility] Urea Nitrogen Random Urine 557 mg/dL [facility] Comment: REFERENCE RANGE: NONE ESTABLISHED FOR RANDOM URINE SPECIMENS. Urine specimen (specimen) 12/04/2012 2:00 PM CDT 12/04/2012 2:35 PM CDT John Massey MD LAB - URINE CHEMISTR Y ORDERABLES Performing Organization Address City/[facility]/ZIP Co de Phone Number [address] [phone] * POTASSIUM URINE RANDOM (12/04/2012 2:00 PM CDT) Potassium Urine 17 mmol/L [facility] Comment: REFERENCE RANGE: NONE ESTABLISHED FOR RANDOM URINE SPECIMENS. Urine specimen (specimen) 12/04/2012 2:00 PM CDT 12/04/2012 2:35 PM CDT John Massey MD LAB - URINE CHEMISTR Y ORDERABLES Performing Organization Address [facility] Co de Phone Number [address] [phone] * CALCIUM URINE RANDOM (12/04/2012 2:00 PM CDT) Calcium Random Urine 20.0 mg/dL [facility] Comment: REFERENCE RANGE: NONE ESTABLISHED FOR RANDOM URINE SPECIMENS. Urine specimen (specimen) 12/04/2012 2:00 PM CDT 12/04/2012 2:35 PM CDT John Massey MD LAB - URINE CHEMISTR Y ORDERABLES Performing Organization Address [facility] de Phone Number [address] [phone] * CREATININE URINE RANDOM (12/04/2012 2:00 PM CDT) Creatinine Random Urine 60 mg/dL [facility] Comment: REFERENCE RANGE: NONE ESTABLISHED FOR RANDOM URINE SPECIMENS. Urine specimen (specimen) 12/04/2012 2:00 PM CDT 12/04/2012 2:35 PM CDT John Massey MD LAB - URINE CHEMISTR Y ORDERABLES Performing Organization Address [address] [phone] * CHLORIDE URINE RANDOM (12/04/2012 2:00 PM CDT) Chloride Random Urine 131 mmol/L [facility] Comment: REFERENCE RANGE: NONE ESTABLISHED FOR RANDOM URINE SPECIMENS. Urine specimen (specimen) 12/04/2012 2:00 PM CDT 12/04/2012 2:35 PM CDT John Massey MD LAB - URINE CHEMISTR Y ORDERABLES [facility] [address] [place] [address] * XR SCOLIOSIS 1VW (11/28/2012 5:13 PM CDT) Anatomical Region Laterality Modality Spine Other Impressions 11/30/2012 10:09 AM CDT Impression: 1. Status post C6-T12 posterior spinal fusion for T6 vertebral plana without evidence of hardware failure. No other compression deformities are identified. 2. No spinal scoliosis. Reported dictated by Austyn Arvizu MD (radiology physician assistant). Dr. Hollis Muller M.D. have personally reviewed [...] status post C6-T12 posterior spinal fusion for [id number] plana. There is no evidence of hardware [...] scoliosis. Reported dictated by Austyn Arvizu MD (radiology physician assistant). I, Dr. Hollis GALINDO M.D. have personally [...] [facility] INR 1.4 [facility] [place] Buffer 69.1 SECONDS [facility] [place] Phospholipid 46.9 SECONDS [facility] [place] Delta Seconds 22.2(H) <9.[address] [facility] Interpretation [place] POSITIVE( A) NEGATIVE [facility] Comment: [place] WHICH GENERALLY IS NOT ASSOCIATED [...] Massey MD LAB - [place] [address], [facility] [phone] * FABIANA VIPER VENOM DILUTE (11/19/2012 5:45 AM CDT) LA-DRVVT Screen 0.9 <1.2 [facility] Interpretation Dilute RVV NEGATIVE NEGATIVE [facility] 11/19/2012 5:45 AM CDT 11/19/2012 5:54 AM CDT John Massey MD LAB - COAGULATION OR DERABLES Performing Organization Address [facility] Co de Phone Number [address] [phone] * XR ABD OBSTRUCTION SERIES 2VW (11/18/2012 [...] obstruction series HISTORY: Abdominal distention, postoperative, 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 COMPARISON: None available FINDINGS: There [...] Vitamin K 1.91 0.10 - 2.20 ng/mL [facility] BLOOD SPECIMEN / Unknown 11/18/2012 11/18/2012 1:39 AM CDT John Massey MD LAB - CHEMISTRY ORDE RABYASH [address] [phone] * (ABNORMAL) FACTOR X ASSAY (11/18/2012 12:00 AM CDT) Factor X Abn Pt Evaluation 67(L) 75 - 180 U/DL [facility] 11/18/2012 11/18/2012 1:3 9 AM CDT John Massey MD LAB - COAGULATION OR DERABLES [address] [phone] * FACTOR VII ASSAY (11/18/2012 12:00 AM CDT) Factor VII Activity 81 65 - 190 U/DL [facility] Plasma specimen (specimen) BLOOD SPECIMEN / Unknown 11/18/2012 11/18/2012 1:39 AM CDT John Massey MD LAB - COAGULATION OR DERABLES Performing Organization Address [facility]/ZIP Co de Phone Number [address] [phone] * FACTOR II ASSAY (11/18/2012 12:00 AM CDT) Factor II Activity 78 75 - 155 U/DL [facility] Comment: FACTORII 1:20=84 ? 1:40=81 FACTOR VII 1:20=78 ? 1:40=77 FACTOR X 1:20=65 ? 1:40=66 FACTOR ??1:14=130 Plasma specimen (specimen) BLOOD SPECIMEN / Unknown 11/18/2012 11/18/2012 1:39 AM CDT John Massey MD LAB - COAGULATION OR DERABLES Performing Organization Address City/[facility]/ZIP Co de Phone Number [address] [phone] * (ABNORMAL) FACTOR IX ASSAY (11/18/2012 12:00 AM CDT) Factor IX Activity 215(H) 60 - 150 U/DL [facility] Plasma specimen (specimen) BLOOD SPECIMEN / Unknown 11/18/2012 11/18/2012 1:39 AM CDT Narrative [facility] - 11/18/2012 9:48 AM CDT Is this a pre or post-infusion?->NA John Massey MD LAB - COAGULATION OR DERABLES Performing Organization Address [facility] de Phone Number [address] [phone] * (ABNORMAL) PT MIX 08/02 (11/16/2012 5:07 PM CDT) APTT 79.5(H) 24.0 - 38.0 SECONDS [facility] PT 31.6(H) 12.1 - 14.8 SECONDS [facility] INR 3.1 [facility] Dilute Prothrombin Time Index 0.73 <1.31 [facility] Interpretation dPT NEGATIVE NEGATIVE S [facility] Plasma specimen (specimen) 11/16/2012 5:07 PM CDT 11/16/2012 5:07 PM CDT John Massey MD LAB - COAGULATION OR DERABLES Performing Organization Address [facility] de Phone Number [address] [phone] * THROMBIN TIME (11/16/2012 5:07 PM CDT) Pathologist [facility] Thrombin Time 16.6 16.2 - 21.9 SECONDS [facility] 11/16/2012 5:07 PM CDT 11/16/2012 5:07 PM CDT John Massey MD LAB - COAGULATION OR DERABLES Performing Organization Address [facility] de Phone Number [address] [phone] * PREPARE FFP UNIT(S) (11/14/2012 10:45 PM CDT) Blood Product [id number] ?O+ ?FFP-T ? TRANSFUSED ? 11/14/12 2310 ?? [id number] ?O+ ?FFP-T ? TRANSFUSED ? 11/15/12 0111 ?? [facility] 11/14/2012 10:4 5 PM CDT 11/14/2012 10:45 PM CDT John Massey MD LAB - BLOOD BANK ORD ERABLES Performing Organization Address City/[facility] Co de Phone Number [address] [phone] * (ABNORMAL) URINALYSIS DIPSTICK AUTO (11/14/2012 9:00 PM CDT) Color UA ORANGE(A) STRW,YELLOW [facility] Clarity UA HAZY(A) CLEAR [facility] Specific [place] Urine 1.015 1.001 - 1.030 [facility] pH UA 6.5 5.0 - 8.0 [facility] Protein UA 30(A) <20 mg/dL [facility] Glucose UA NEGATIVE NEGATIVE mg/dL [facility] Ketones NEGATIVE NEGATIVE mg/dL [facility] Bilirubin UA NEGATIVE NEGATIVE mg/dL [facility] Blood UA NEGATIVE NEGATIVE [facility] Nitrite UA NEGATIVE NEGATIVE [facility] Leukocyte Esterase NEGATIVE NEGATIVE [facility] Urobilinogen UA < 2.0 <2.0 mg/dL [facility] Urine specimen (specimen) URINE SPECIMEN COLLECTION, CATHETERIZED / Unknown 11/14/2012 9:00 PM CDT 11/15/2012 12:10 AM CDT Narrative [facility] - 11/15/2012 12:36 AM CDT Per ernesto protocol Reji Virk MD LAB - URINALYSIS ORD ERABLES Performing Organization Address [facility]/ZIP Co de Phone Number [address] [phone] * LACTIC ACID WHOLE BLOOD (11/14/2012 6:31 PM CDT) Only the most recent of2 resultswithin the time period is included. Lactic Acid-Stat 0.7 0.5 - 3.4 mmol/L [facility] 11/14/2012 6:31 PM CDT 11/14/2012 6:31 PM CDT Reji Virk MD LAB - CHEMISTRY [facility] [address] [phone] * (ABNORMAL) CHLORIDE WHOLE BLOOD (11/14/2012 6:31 PM CDT) Only the most recent of2 resultswithin the time period is included. Whole Blood CL 112(H) 101 - 111 MMOL/L [facility] 11/14/2012 6:31 PM CDT 11/14/2012 6:31 PM CDT Reji Virk MD LAB - CHEMISTRY [facility] Performing Organization Address [facility] Co de Phone Number [address] [phone] * (ABNORMAL) CALCIUM IONIZED WHOLE BLOOD (11/14/2012 6:31 PM CDT) Only the most recent of2 resultswithin the time period is included. Ionized Calcium Whole Blood 1.08 MMOL/L [facility] Whole Blood PH 7.29(L) 7.35 - 7.45 [facility] Adjusted Ionized Calcium 1.02(L) 1.19 - 1.34 mmol/L [facility] 11/14/2012 6:31 PM CDT 11/14/2012 6:31 PM CDT Reji Virk MD LAB - CHEMISTRY [facility] Performing Organization Address City/[facility]/ZIP Co de Phone Number [address] [phone] * POTASSIUM WHOLE BLD (11/14/2012 6:31 PM CDT) Only the most recent of2 resultswithin the time period is included. Potassium 4.9 3.5 - 5.5 mmol/L [facility] 11/14/2012 6:31 PM CDT 11/14/2012 6:31 PM CDT Reji Virk MD LAB - CHEMISTRY [facility] Performing Organization Address [facility]/ZIP Co de Phone Number [address] [phone] * (ABNORMAL) SODIUM WHOLE BLOOD (11/14/2012 6:31 PM CDT) Only the most recent of2 resultswithin the time period is included. Sodium Whole Blood 129(L) 135 - 145 mmol/L [facility] 11/14/2012 6:31 PM CDT 11/14/2012 6:31 PM CDT Reji Virk MD LAB - CHEMISTRY [facility] Performing Organization Address City/[facility]/ZIP Co de Phone Number [address] [phone] * (ABNORMAL) BLOOD GASES ART (11/14/2012 6:31 PM CDT) Only the most recent of2 resultswithin the time period is included. pH Arterial 7.29(L) 7.35 - 7.45 [facility] pCO2 Arterial 40 35 - 45 mmHg [facility] pO2 Arterial 186(H) 77 - 101 mmHg [facility] HCO3 Arterial 18.5(L) 22 - 26 mEq/L [facility] TCO2 Arterial 19.7(L) 25 - 29 mEq/L [facility] Base Excess Arterial -7.1(L) -2 - 2 [facility] Hemoglobin Arterial 10.4(L) 12.0 - 15.5 g/dL [facility] Oxyhemoglobin Arterial 95.1 95.0 - 100.0 % [facility] Carboxyhemoglobin 2.8 0 - 3 % [facility] Methemoglobin 1.6 0 - 2.0 % [facility] FI O2 Arterial 21 [facility] 11/14/2012 6:31 PM CDT 11/14/2012 6:31 PM CDT Reji Virk MD LAB - BLOOD GASES OR DERABLES Performing Organization Address [facility] Co de Phone Number [address] [phone] * (ABNORMAL) GLUCOSE WHOLE BLOOD (11/14/2012 6:31 PM CDT) Only the most recent of2 resultswithin the time period is included. Glucose 181(H) 70 - 110 mg/dL [facility] 11/14/2012 6:31 PM CDT 11/14/2012 6:31 PM CDT Reji Virk MD LAB - CHEMISTRY ORDE RABLES Performing Organization Address [facility] Co de Phone Number [address] [phone] * (ABNORMAL) FIBRINOGEN ACTIVITY (11/14/2012 6:30 PM CDT) Fibrinogen Clauss 407(H) 170 - 400 mg/dL [facility] 11/14/2012 6:30 PM CDT 11/14/2012 6:58 PM CDT Hemal Brand MD LAB - COAGULATION OR DERABLES Performing Organization Address [facility] Co de Phone Number [address] [phone] * CULTURE SPUTUM+GRAM STAIN (11/11/2012 6:00 AM CDT) Gram Stain MANY POLYMORPHONUCLEAR CELLS; RARE YEAST SEEN. GRAM STAINS ARE ROUTINELY SCREENED FOR THE PRESENCE OF POLYMORPHONUCLEAR CELLS. [facility] Culture Results [facility] Culture Sputum and Smear LIGHT GROWTH OF YEAST. [facility] Culture Results [facility] Sputum specimen (specimen) 11/11/2012 6:00 AM CDT 11/11/2012 6:15 AM CDT Narrative [facility] - 11/13/2012 1:11 PM CDT Specimen Type->Sputum John Massey MD LAB - MICROBIOLOGY O RSOSI Performing Organization Address [facility] Co de Phone Number [address] [phone] * HCG BLOOD QUALITATIVE (11/10/2012 7:35 AM CDT) NEGATIVE NEGATIVE [facility] Comment:PERFORMED BY: MEERA SAL 11/10/2012 7:35 AM CDT 11/10/2012 7:38 AM CDT John Massey MD LAB - CHEMISTRY [facility] Performing Organization Address [facility] Co de Phone Number [address] [phone] * CULTURE MRSA (11/07/2012 5:45 PM CDT) Only the most recent of2 resultswithin the time period is included. Culture MRSA Screen NO GROWTH OF METHICILLIN RESISTANT STAPHYLOCOCCUS AUREUS. [facility] Nasal TISSUE SPECIMEN FROM AXILLA / Unknown 11/07/2012 5:45 PM CDT 11/07/2012 6:18 PM CDT Narrative [facility] - 11/09/2012 12:25 PM CDT Specimen Type->Nasal Swab AXILLA John Massey MD LAB - MICROBIOLOGY O ROSSI Performing Organization Address [facility] Co de Phone Number [address] [phone] * XR PANOREX (11/05/2012 3:36 PM CDT) [...] is included. Chromosome Bone Marrow RESULTS FINAL [facility] Comment: * ASSAY PERFORMED BY: [facility] * ? [address] [facility] [facility] ? [place] [address] REFER TO PATHOLOGY/CYTOLOGY REPORT FOR ORIGINAL REPORT AND INTERPRETATION. 11/04/2012 4:55 PM CDT 11/04/2012 5:19 PM CDT John Massey MD LAB - PATHOLOGY/CYTO LOGY ORDERABLES [facility] [address] [phone] * CHROMOSOME ANALYSIS BLOOD PANEL (11/04/2012 4:55 PM CDT) Fluorescent In-Situ Hybridization RESULTS FINAL [facility] Comment: * ASSAY PERFORMED BY: [facility] * ? [address] [facility] ? [place] [address] REFER TO PATHOLOGY/CYTOLOGY REPORT FOR ORIGINAL REPORT AND INTERPRETATION. 11/04/2012 4:55 PM CDT 11/04/2012 5:19 PM CDT John Massey MD LAB - PATHOLOGY/CYTO LOGY ORDERABLES [facility] [address] [place] [address], [facility] [phone] * MRI LUMBAR SPINE WWO CONTRAST (11/04/2012 [...] M.D. ?? on 11/04/2012 3:03 PM . Renzo, Dr. GARY KIM M.D. have personally reviewed [...] Turner M.D. on 11/04/2012 3:[address] GARY Muller M.D. have personally reviewed and interpreted thisexamination/study. This report was electronically signed by GARY KIM M.D. on 11/04/20125:16 PM . John Massey MD NM ORDERABLES * PFT-LAB (11/04/2012 11:29 AM CDT) Impressions [facility] RADIOLOG[facility] - 11/04/2012 11:29 AM CDT [facility] DEPARTMENT OF PULMONARY, CRITICAL CARE AND SLEEP MEDICINE PULMONARY FUNCTION TESTS Lakeisha Loving Justyn 11/04/2012 INTERPRETATION Please see technologist's comments [...] with Dr. Canales's interpretation. Manjinder Costa M.D. [employer] Manager of Internal Medicine Division of Pulmonary, Critical Care and Sleep Medicine [facility] Narrative Procedure Note Provider, MD Alexis - 01/07/2018 IMPRESSION [facility] DEPARTMENT OF PULMONARY, CRITICAL CARE AND [...] with Dr. Canales's interpretation. Manjinder Costa M.D. [employer] Manager of Internal Medicine Division of Pulmonary, Critical Care and Sleep Medicine [facility] John Massey MD RESPIRATORY THERAPY ORDERABLES Performing Organization Address [facility] [[email or web address]] de Phone Number [facility] * PROTEIN ELECTROPHORESIS URINE RANDOM (11/03/2012 6:50 PM CDT) Interpretation Urine PE SEE NOTE [facility] Comment: Urine protein electrophoresis shows a [...] ?Fiorella Roa, Ph.D. Protein Urine 15 mg/dL [facility] Urine PE Albumin 41.0 % [facility] Urine PE Globulin 59.0 % [facility] Urine specimen (specimen) URINE SPECIMEN COLLECTION, CATHETERIZED / Unknown 11/03/2012 6:50 PM CDT 11/03/2012 7:03 PM CDT John Massey MD LAB - URINE CHEMISTR Y ORDERABLES Performing Organization Address [facility] de Phone Number [address] [phone] * HCG URINE QUALITATIVE (11/03/2012 6:50 PM CDT) Test Urine NEGATIVE NEGATIVE [facility] Urine specimen (specimen) URINE SPECIMEN COLLECTION, CATHETERIZED / Unknown 11/03/2012 6:50 PM CDT 11/04/2012 8:51 AM CDT John Massey MD LAB - URINALYSIS ORD ERABLES Performing Organization Address [facility] [[email or web address]] de Phone Number [address] [phone] * HIV-1 HIV-2 ANTIGEN/ANTIBODY (11/03/2012 5:33 PM CDT) [facility] HIV Antigen/Antib neda 1 & 2 NONREACTIVE NONREACTIVE [facility] Comment:HIV-1 p24 AG and HIV -1/HIV-2 AB NOT DETECTED. Blood specimen (specimen) 11/03/2012 5:33 PM CDT 11/03/2012 5:52 PM CDT John Massey MD LAB - HEMATOLOGY MELISSA YADAV Performing Organization Address [facility] [[email or web address]] de Phone Number [address] [phone] * (ABNORMAL) CYTOMEGALOVIRUS ANTIBODY IGG BLOOD (11/03/2012 5:33 PM CDT) [facility] Cytomegalovirus Antibody IgG 1.6(H) 0.0 - 0.8 index [facility] Comment: ? Negative ?<0.9 ? Equivocal ?0.9 - 1.0 ? Positive ?>1.0 Performed at: ?? - [address] ??[id number] Senior Research Consultant: Chris Bauer PhD, Phone: ??[phone] Venous blood specimen (specimen) 11/03/2012 5:33 PM CDT 11/03/2012 8:50 PM CDT John Massey MD LAB - CHEMISTRY [facility] Performing Organization Address [facility] [[email or web address]] de Phone Number [address] [phone] * HEPATITIS BE ANTIGEN (11/03/2012 5:33 PM CDT) Pathologist [facility] Hepatitis Be Virus Antigen Negative Negative [facility] 11/03/2012 5:33 PM CDT 11/03/2012 5:52 PM CDT John Massey MD LAB - CHEMISTRY [facility] [address] [phone] * HEPATITIS BE ANTIBODY (11/03/2012 5:33 PM CDT) [facility] Hepatitis Be Virus Antibody Negative Negative [facility] Comment: Performed at: ?? - [facility] [address] ??[id number] Senior Research Consultant: Chris Bauer PhD, Phone: ??[phone] 11/03/2012 5:33 PM CDT 11/03/2012 5:52 PM CDT John Massey MD LAB - CHEMISTRY [facility] Performing Organization Address City/[facility]/ZIP Co de Phone Number [address] [phone] * HEPATITIS B SURFACE ANTIBODY (11/03/2012 5:33 PM CDT) [facility] Hepatitis B Surface Antibody Quantitative 0.16 <8.00 mIU/mL [facility] Hepatitis B Virus Surface Antibody NONREACTIVE NONREACTIVE [facility] Comment: < 8 mIU/mL anti-HBs. Nonreactive for anti-HBs and individual is considered not immune to HBV infection. Venous blood specimen (specimen) 11/03/2012 5:33 PM CDT 11/03/2012 5:52 PM CDT John Massey MD LAB - CHEMISTRY [facility] [address] [phone] * HEPATITIS C ANTIBODY (11/03/2012 5:33 PM CDT) [facility] Hepatitis C Antibody NONREACTIVE NONREACTIVE [facility] Comment: Anti-HCV screen indicates no serologic [...] LAB - CHEMISTRY [facility] [address] [phone] * HEPATITIS A IGM ANTIBODY (11/03/2012 5:33 PM CDT) [facility] Hepatitis A Virus Antibody IgM NONREACTIVE NONREACTIVE [facility] 11/03/2012 5:33 PM CDT 11/03/2012 5:52 PM CDT John Massey MD LAB - CHEMISTRY [facility] Performing Organization Address [facility] Co de Phone Number [address] [phone] * HEPATITIS A ANTIBODY (11/03/2012 5:33 PM CDT) [facility] Hepatitis A Virus Total Antibody Negative Negative [facility] Comment: Performed at: ?? - [facility] ??[id number] Senior Research Consultant: Chris Bauer PhD, Phone: ??[phone] 11/03/2012 5:33 PM CDT 11/03/2012 5:52 PM CDT John Massey MD LAB - CHEMISTRY [facility] [address] [phone] * HEPATITIS B CORE ANTIBODY IGM (11/03/2012 5:33 PM CDT) Hepatitis B Core Virus Antibody IgM NONREACTIVE NONREACTIVE [facility] 11/03/2012 5:33 PM CDT 11/03/2012 5:52 PM CDT John Massey MD LAB - CHEMISTRY [facility] [address] [place] [address] Care Teams Development Engineer Relationship Specialty Start Date End Date Blake Lindsey MD [address] [place] [phone] PCP - General 05/20/16
[2024-09-01 18:11] VITALS: BP 153/75; PULSE 112; RESP 20; TEMP 37.1; O2SAT 98
--- NOTE | 2024-09-01 18:58 | ED.URI ---
HPI - URI/Sore Throat General Chief Complaint: Upper Respiratory Infection Stated Complaint: pneumonia Time Seen by Provider: 09/01/24 18:58 Source: patient, RN notes reviewed and old records reviewed Mode of arrival: ambulatory Limitations: no limitations History of Present Illness HPI Narrative: 53-year-old female presents to the [facility] with complaints of a cough since yesterday. Denies fevers. Reports that she does have a whipper beater she follows for chronic lung issues Onset (ago): day(s) (1) Related Data Home Medications ?Medication ?Instructions ?Recorded ?Confirmed ?Last Taken ?Type prazosin 1 mg capsule 1 mg PO HS 01/15/21 08/29/24 02/06/21 History bupropion HCl 150 mg 24 hr tablet, 100 mg PO QAM 10/13/23 08/29/24 Unknown History extended release Allergies Allergy/AdvReac Type Severity Reaction Status Date / Time codeine Allergy Unknown PASSED OUT Verified 09/01/24 18:22 Penicillins Allergy Unknown Hives Verified 09/01/24 18:22 lidocaine AdvReac Other Verified 09/01/24 18:22 Review of Systems Review of Systems: All systems reviewed & are unremarkable except as noted in HPI and below Constitutional: Constitutional: Reports no additional constitutional complaints ENT: Reports system reviewed and no additional complaints, except as documented Cardiovascular: Cardiovascular: Reports no additional cardiovascular complaints, Denies chest pain and Denies dyspnea Respiratory: Respiratory: Reports as per HPI, Denies chest congestion, Reports cough and Denies dyspnea Musculoskeletal: Musculoskeletal: Reports no additional musculoskeletal complaints Integumentary/Breasts: Skin/Breast: Reports system reviewed and no additional complaints, except as docu PMFSH Past Medical History Medical History Insomnia GERD (gastroesophageal reflux disease) Weight gain Screening mammogram for breast cancer COPD exacerbation Nausea Cerumen impaction Hemorrhoids Constipation due to opioid therapy Basal cell carcinoma (BCC) of crown Pneumonia due to COVID-19 virus Osteoma of face Migraines PTSD (post-traumatic stress disorder) Anterior tibial tendon tear, traumatic Osteoarthritis of left hip COPD mixed type Surgical History Surgical History History of spinal surgery 2012, 2014 History of oral surgery 2012 History of knee surgery R - 2008 L - 2007 Family History Family History Mother Hypertension Heart disease Grandparent Family history of lung cancer Father Family history of malignant neoplasm of thyroid Heart disease Family history of lung cancer Acute myocardial infarction Sibling No problems noted. Other Family history of arthritis Family history of cardiovascular disease Family history of malignant neoplasm of breast Unknown family medical history Social History Social History Social History: patient is a former smoker and quit 23 years ago after about 10 years of smoking. She does not do marijuana, drugs or alcohol. She is on disability due to her back pain. She would like her son, Armando, to be her surrogate decision maker if needed. She would like to be a full code. Smoking packs per day: 1 Smoking cigarettes per day: 20.0 Years smoked: 13 Smoking pack-years: 13.00 Smoking status: Former smoker Tobacco type: cigarettes Second hand tobacco smoke exposure: No Smoking end date: 01/30/98 Alcohol intake: current Substance use: current Substance use type: marijuana Do You Feel Safe in your Home?: Yes Lack of Transportation: No Lack of Food: Never True Current Housing: I Have Housing Concerned About Future Housing: No Difficulty Paying Gas/Electric Bills: No Difficulty Paying for Meds: No Currently Unemployed: No Education: Associate Degree Difficulty w/ Childcare or Family Care: No Living arrangements: with family Additional living arrangements comments: boyfriend Occupation/Education: retired Additional occupation/education comments: disabled/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 Gender identity (if verbalized by the patient): Female Sexual Orientation (if Verbalized by the Patient): Straight or Heterosexual Spiritual care concerns: No Agree to blood products: Yes Comments At the time of my signature, I reviewed and agree with the nursing past medical, surgical, social, and family history. There is no relevant family history pertinent to the patient complaint. Exam Const: General: cooperative, comfortable, no acute distress, well developed, alert, ill appearing chronically and well nourished Nutritional Appearance: well nourished and obese Orientation/consciousness: patient oriented x3 Limitations: no limitations HENMT: Head: normal to inspection Ears: hearing grossly normal bilaterally, external ears normal, TM's normal bilaterally, EAC's normal, mastoids normal and no periauricular adenopathy Mouth: Yes Normal oral and palatal mucosa present, Yes lip normal, Yes tongue normal and Yes moist mucous membranes Throat: posterior oropharynx normal, uvula midline, postnasal drainage and no uvular edema Eyes: General: appearance normal, both eyes and all related structures Alignment and Position: alignment normal Neck: Neck: normal visual inspection, full ROM, no lymphadenopathy and no meningeal signs Chest: Chest palpation & inspection: normal inspection of the chest Resp: Effort & Inspection: normal respiratory effort and able to speak in complete sentences Auscultation: clear to auscultation bilaterally, no crackles, no rales, no rhonchi and no wheezes Cardio: Rate: regular rate Skin: General skin exam: normal color and no rashes or lesions noted Neuro: General: patient oriented x3, gait normal, moves all extremities and no meningeal signs Cognition (Neuro): normal cognition Speech: normal speech Gait exam (Neuro): Normal gait present Extrem: General: normal to inspection, full ROM, capillary refill normal and normal gait Psych: Appearance: grossly normal and well kempt Mental Status: mental status grossly normal Speech and movement: Normal speech and movement present and Clear speech present Affect: normal affect Attitude: cooperative Course Course Level of Care: Express Care Visit Vital Signs Vital signs: Vital Signs Temperature 98.7 F 09/01/24 18:11 Pulse Rate 112 H 09/01/24 18:11 Respiratory Rate 20 09/01/24 18:11 Blood Pressure 153/75 H 09/01/24 18:11 Pulse Oximetry 98 09/01/24 18:11 Oxygen Delivery Room Air 09/01/24 18:11 Temperature 98.7 F 09/01/24 18:11 Pulse Rate 112 H 09/01/24 18:11 Respiratory Rate 20 09/01/24 18:11 Blood Pressure 153/75 H 09/01/24 18:11 Pulse Oximetry 98 09/01/24 18:11 Oxygen Delivery Room Air 09/01/24 18:11 Reviewed MDM - URI/Sore Throat MDM Narrative Medical decision making narrative: Patient sitting in exam room. Nontoxic, vitals are stable except blood pressure mildly elevated. Patient presents with concerns for pneumonia. Chest x-ray does not show acute findings. Lung sounds are clear to auscultation. Patient does have a cough discussed continuing using her nebulizer she states she has at home. Will prescribe a steroid, encourage patient to follow-up with primary care provider as well as pulmonology. Patient appropriate for outpatient treatment and follow-up Discharge instructions reviewed with patient, as well as provided in writing per nursing staff. The instructions also include specific and strict return/GO TO THE ER as well as f/u information. All questions have been answered, and the patient deny any further questions with discharge and discharge plan. Some parts of this dictation were generated by voice recognition software and may contain typographical and/or grammatical inaccuracies. Differential Diagnosis Differential diagnosis: Likely upper respiratory infection, otitis media, sinusitis, viral infection and bronchitis Imaging Data Radiologist's impression: EXAMINATION: XR chest 2V DATE: 09/01/2024 18:40 INDICATION: Cough. Shortness of breath. TECHNIQUE: Frontal and lateral views of the chest were obtained. COMPARISON: Chest 2 views 07/22/2024 FINDINGS: There is no pneumonia, pleural effusion, or pneumothorax. The heart size is normal. There are changes of posterior fusion procedure in thoracic spine. IMPRESSION: 1. No acute cardiopulmonary disease. Critical Care Time Critical Care Time Critical Care Time: No Discharge Plan Discharge Clinical Impression: Bronchitis, PND (post-nasal drip) Upper respiratory infection Qualifiers: URI type: unspecified viral URI Qualified Code(s): J06.9 - Acute upper respiratory infection, unspecified Patient Disposition: Home, Self-Care Condition: Stable Instructions: Antibiotic Form, Acute Bronchitis (ED), Postnasal Drip (DC) Additional Instructions: Take Mucinex per package instructions. Use your nebulizer every 4-5 hours Follow-up with your primary care provider Follow-up with pulmonology For new or worsening symptoms go directly to emergency Patient Language: Romanian Prescriptions: New prednisone 50 mg tablet 50 mg PO DAILY Qty: 5 0RF No Action prazosin 1 mg capsule 1 mg PO HS Rx Instructions: TAKES FOR NIGHT TERRORS/PTSD Trelegy Ellipta 200-62.5-25 mcg blister with device 1 inh inhalation DAILY Qty: 60 0RF Rx Instructions: pulmonology bupropion HCl 150 mg tablet extended release 24 hr 100 mg PO QAM ondansetron 4 mg tablet,disintegrating 4 mg PO Q8H PRN (Reason: nausea and vomiting) Qty: 15 0RF trazodone 100 mg tablet 100 mg PO QHS PRN (Reason: Insomnia) Qty: 90 0RF atorvastatin 10 mg tablet 10 mg PO DAILY Qty: 90 1RF lubiprostone [Amitiza] 24 mcg capsule 24 mcg PO BID Qty: 60 6RF potassium chloride 20 mEq tablet extended release 20 meq PO DAILY Qty: 90 2RF (DME) Aerochamber MV Spacer See Rx Instructions .ROUTE .MEDSUPPLY Qty: 1 0RF Rx Instructions: to use with inhalers (DME) nebulizers [Altera Nebulizer System] Misc See Rx Instructions .Route Qty: 1 0RF Rx Instructions: As directed gabapentin 300 mg capsule 300 mg PO TID Qty: 90 2RF furosemide 20 mg tablet See Rx Instructions .ROUTE .COMPLEX Qty: 90 1RF Dose Instruction: TAKE 1 TABLET BY MOUTH EVERY MORNING Rx Instructions: TAKE 1 TABLET BY MOUTH EVERY MORNING spironolactone 25 mg tablet 25 mg PO QAM Qty: 90 1RF Rx Instructions: TAKE 1 TABLET BY MOUTH DAILY omeprazole 20 mg capsule,delayed release(DR/EC) 20 mg PO HS Qty: 90 1RF cetirizine 10 mg tablet See Rx Instructions .ROUTE .COMPLEX Qty: 90 1RF Dose Instruction: TAKE 1 TABLET BY MOUTH DAILY Rx Instructions: TAKE 1 TABLET BY MOUTH DAILY sumatriptan succinate [Imitrex] 50 mg tablet 50 mg PO ONCE PRN (Reason: migraine headache) Qty: 9 2RF montelukast 10 mg tablet 10 mg PO QHS Qty: 90 1RF baclofen 20 mg tablet 20 mg PO TID Qty: 90 0RF Follow-up/Referrals: Blake Lindsey MD [Primary Care Provider] - 2 Weeks ([facility] follow-up, blood pressure check) Time of Disposition: 19:07
== END 2024-09-01 19:12 | disposition home or self-care (01) ==
PROVIDERS: Emergency Provider Nurse Practitioner; PCP Family Medicine
DX: J40 Bronchitis, not specified as acute or chronic (principal); R09.82 Postnasal drip; J44.9 Chronic obstructive pulmonary disease, unspecified; K21.9 Gastro-esophageal reflux disease without esophagitis; M16.12 Unilateral primary osteoarthritis, left hip; Z85.828 Personal history of other malignant neoplasm of skin
CPT/HCPCS: 71046; 99213; G0463

== ENCOUNTER 2025-07-03 12:03 | Emergency (ER) | payer MEDICARE, MEDICAID, SELFPAY ==
--- NOTE | ~2025-07-03 | XR_ITS ---
Examination: XR chest 2V Clinical History: cough Comparison: 09/01/2024 Technique: PA and Lateral Findings: Cardiomediastinal silhouette normal size and configuration. Lungs clear. No acute bony abnormality. IMPRESSION: 1. No acute cardiopulmonary findings. Reviewed, dictated and finalized at location [facility] [employer]
--- NOTE | 2025-07-03 12:04 | ED.URI ---
HPI - URI/Sore Throat General Chief Complaint: Upper Respiratory Infection Stated Complaint: sinus/flu Time Seen by Provider: 07/03/25 12:04 Source: patient Mode of arrival: ambulatory Limitations: no limitations History of Present Illness HPI Narrative: patient is a 54-year-old female who presents with deep cough and fatigue that started 5 days ago. Patient had intermittent nausea and diarrhea along with shortness of breath with exertion. Patient denies any chest pain. Patient has history of asthma and questionable COPD. Patient did use a breathing treatment this morning this seemed to help. Patient does have rib cage and back soreness from coughing. Patient's concern for pneumonia Related Data Home Medications ?Medication ?Instructions ?Recorded ?Confirmed ?Last Taken ?Type prazosin 1 mg capsule 1 mg PO HS 01/15/21 08/29/24 02/06/21 History bupropion HCl 150 mg 24 hr tablet, 100 mg PO QAM 10/13/23 08/29/24 Unknown History extended release Allergies Allergy/AdvReac Type Severity Reaction Status Date / Time Penicillins Allergy Mild Hives Verified 07/03/25 12:06 codeine AdvReac Intermediate syncopy Verified 07/03/25 12:06 lidocaine AdvReac Other Verified 07/03/25 12:06 Review of Systems Review of Systems: All systems reviewed & are unremarkable except as noted in HPI and below Constitutional: Constitutional: Denies chills, Denies fatigue, Denies fever(s), Denies headache(s), Denies malaise and Denies weakness Eyes: Eyes: Denies blurry vision, Denies itchy eyes and Denies loss of vision ENT: Denies otalgia, Denies headache(s), Reports nasal congestion, Denies sinus pain and Denies sore throat Cardiovascular: Cardiovascular: Denies chest pain, Denies irregular heart rhythm and Denies dyspnea Respiratory: Respiratory: Reports cough and Reports dyspnea on exertion Gastrointestinal: Gastrointestinal: Denies abdominal pain, Reports diarrhea, Reports nausea and Denies vomiting Musculoskeletal: Musculoskeletal: Denies back pain, Denies myalgias and Denies arthralgias Integumentary/Breasts: Skin/Breast: Denies pruritus and Denies rash Neurologic: Denies headache(s), Denies loss of vision and Denies weakness Psychiatric: Psychiatric: Reports no additional psychiatric complaints Endocrine: Endocrine: Denies fatigue Allergic/Immunologic: Allergic/Immunologic: Denies itchy eyes PMFSH Past Medical History Medical History Insomnia GERD (gastroesophageal reflux disease) Weight gain Screening mammogram for breast cancer COPD exacerbation Nausea Cerumen impaction Hemorrhoids Constipation due to opioid therapy Basal cell carcinoma (BCC) of crown Pneumonia due to COVID-19 virus Osteoma of face Migraines PTSD (post-traumatic stress disorder) Anterior tibial tendon tear, traumatic Osteoarthritis of left hip COPD mixed type Surgical History Surgical History History of spinal surgery 2012, 2014 History of oral surgery 2012 History of knee surgery R - 2009 L - 2007 Family History Family History Mother Hypertension Heart disease Grandparent Family history of lung cancer Father Family history of malignant neoplasm of thyroid Heart disease Family history of lung cancer Acute myocardial infarction Sibling No problems noted. Other Family history of arthritis Family history of cardiovascular disease Family history of malignant neoplasm of breast Unknown family medical history Social History Social History Social History: patient is a former smoker and quit 23 years ago after about 10 years of smoking. She does not do marijuana, drugs or alcohol. She is on disability due to her back pain. She would like her son, Armando, to be her surrogate decision maker if needed. She would like to be a full code. Smoking packs per day: 1 Smoking cigarettes per day: 20.0 Years smoked: 13 Smoking pack-years: 13.00 Smoking status: Former smoker Tobacco type: cigarettes Second hand tobacco smoke exposure: No Smoking end date: 01/30/98 Alcohol intake: current Substance use: current Substance use type: marijuana Lack of Transportation: No Lack of Food: Never True Current Housing: I Have Housing Concerned About Future Housing: No Difficulty Paying Gas/Electric Bills: No Difficulty Paying for Meds: No Currently Unemployed: No Education: Associate Degree Difficulty w/ Childcare or Family Care: No Living arrangements: with family Additional living arrangements comments: boyfriend Occupation/Education: retired 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 Gender identity (if verbalized by the patient): Female Sexual Orientation (if Verbalized by the Patient): Straight or Heterosexual Spiritual care concerns: No Agree to blood products: Yes Comments At time of signature, agree with nursing past medical, surgical, social and family history. There is no relevant family history pertinent to the presenting complaint. Exam Const: General: cooperative, healthy appearing, comfortable, no acute distress and well nourished Nutritional Appearance: well nourished Orientation/consciousness: patient oriented x3 Limitations: no limitations HENMT: Head: normal to inspection, normocephalic and atraumatic Ears: hearing grossly normal bilaterally, external ears normal, TM's normal bilaterally, EAC's normal and no periauricular adenopathy Face/Nose/Sinus: Normal external nose present, Abnormal mucous membranes and turbinates present erythematous bilateral and diffuse, normal facial exam, sinuses nontender and face symmetric Face and sinus: normal facial exam, sinuses nontender and face symmetric Mouth: Yes Normal oral and palatal mucosa present, Yes lip normal, Yes tongue normal, Yes Normal salivary glands and ducts present, Yes oropharynx normal and Yes moist mucous membranes Teeth and gingiva: dentition normal Throat: posterior oropharynx normal, tonsils normal and uvula midline Eyes: General: appearance normal, both eyes and all related structures Alignment and Position: alignment normal and position normal Periorbital: periorbital findings normal Eyelids: eyelids normal Pupils: Equal, round and reactive pupils present Neck: Neck: normal visual inspection, full ROM, no lymphadenopathy and supple Chest: Chest palpation & inspection: normal inspection of the chest and normal palpation of entire chest wall Resp: Effort & Inspection: normal respiratory effort, able to speak in complete sentences and tachypneic Auscultation: not clear to auscultation bilaterally, no crackles, no rales, rhonchi throughout and no wheezes Cardio: Rate: regular rate Rhythm: regular rhythm Heart sounds: S1 normal heart sound present and S2 normal heart sound present GI: Inspection: normal to inspection Skin: General skin exam: normal color and no rashes or lesions noted Neuro: General: patient oriented x3 and moves all extremities Cranial nerves: Yes Equal, round and reactive pupils present Speech: normal speech Gait exam (Neuro): Normal gait present Extrem: General: normal to inspection, full ROM and no edema Psych: Appearance: grossly normal and well kempt Mental Status: mental status grossly normal Speech and movement: Normal speech and movement present Affect: normal affect Attitude: cooperative Thought process: Normal thought process present Course Course Level of Care: Express Care Visit Vital Signs Vital signs: Vital Signs Temperature 36.3 C L 07/03/25 12:20 Pulse Rate 99 07/03/25 12:20 Respiratory Rate 22 H 07/03/25 12:20 Blood Pressure 122/88 07/03/25 12:20 Pulse Oximetry 96 07/03/25 12:20 Oxygen Delivery Room Air 07/03/25 12:20 Temperature 36.3 C L 07/03/25 12:20 Pulse Rate 99 07/03/25 12:20 Respiratory Rate 22 H 07/03/25 12:20 Blood Pressure 122/88 07/03/25 12:20 Pulse Oximetry 96 07/03/25 12:20 Oxygen Delivery Room Air 07/03/25 12:20 MDM MDM Narrative Medical decision making narrative: Pt well hydrated appearing, in no respiratory distress, hemodynamically stable. Recommend supportive care. The patient is stable at time of discharge the clinical impression was discussed and the patient was given the opportunity to ask questions, which were addressed as completely as possible given the information available at present. Anticipatory guidance and return to care precautions were discussed and the importance of primary care follow-up was stressed and encouraged. The patient voiced understanding of the plan, indications to return, and the need for follow-up. Exam findings show no acute concerns or changes Patient is appropriate for outpatient treatment and follow-up. Differential Diagnosis Differential Diagnosis: Differential diagnostic considerations for upper respiratory infection include upper respiratory infection, croup, otitis media, sinusitis, viral infection, bronchitis, influenza, pharyngitis, strep, uvulitis, pneumonia.? Medical Records I have reviewed the following patient records and this information was taken into consideration when formulating the assessment and plan.: previous clinic visits Imaging Data Radiologist's impression: ITS Impressions Chest X-Ray 07/03/25 12:21 IMPRESSION: 1. No acute cardiopulmonary findings. Discharge Plan Discharge Clinical Impression: Bronchitis Patient Disposition: Home Condition: Stable Instructions: Acute Bronchitis (ED) Additional Instructions: Take steroids in the morning with food. Use cough medicine as needed for cough(do not take same day as your potassium). Other symptomatic treatments include: -Alternate Tylenol and Motrin per package directions for fever or pain: Tylenol 650-1000mg by mouth every 4-6 hours. Do not exceed 4000mg in 24 hours. Advil (Ibuprofen) 600 mg by mouth every 6 hours. Do not exceed 2400mg in 24 hours. 8 AM: Tylenol 11 AM: Ibuprofen 2 PM: Tylenol 5 PM: Ibuprofen 8 PM: Tylenol 11 PM: Ibuprofen 2 AM: Tylenol 5 AM: Ibuprofen -Antihistamine medication such as Benadryl at night and Zyrtec/Claritin/Angie during the day can help improve symptoms. -Use Flonase twice a day for 5 days then daily to help reduce the inflammation and dry up your sinuses. -You can also use Sudafed or Mucinex. Be sure to drink plenty of water with these medications at least 8 ounces with every dose and it is important to drink 8 to 10 glasses of water per day. Water is a natural decongestant -Eat and drink things that are easy to swallow, like tea or soup, or popsicles. -Oral rinses such as: Salt water gargles and/or may use topical anesthetic (eg. Chloraseptic spray) or lozenges to relieve dryness or throat pain). -Frequent hand washing or hand manager environmental services is one of the best ways to prevent spread of infection. -Using a vaporizer or humidifier at night will also help thin secretions and help with coughing up phlegm. Call your Primary Care Doctor and make a follow-up appointment in 3 days. If your cough worsens, you develop a fever greater than 103, you develop shaking chills, a fast heartbeat, trouble breathing and/or feel you are are breathing much faster than usual, call your Primary Care Doctor or go to the ER. Patient Language: Armenian Prescriptions: New promethazine-DM 6.25-15 mg/5 mL syrup 5 ml PO Q4-6H PRN (Reason: cough) Qty: 118 0RF prednisone 20 mg tablet 40 mg PO DAILY 5 Days Qty: 10 0RF No Action prazosin 1 mg capsule 1 mg PO HS Rx Instructions: TAKES FOR NIGHT TERRORS/PTSD Trelegy Ellipta 200-62.5-25 mcg blister with device 1 inh inhalation DAILY Qty: 60 0RF Rx Instructions: pulmonology bupropion HCl 150 mg tablet extended release 24 hr 100 mg PO QAM ondansetron 4 mg tablet,disintegrating 4 mg PO Q8H PRN (Reason: nausea and vomiting) Qty: 15 0RF atorvastatin 10 mg tablet 10 mg PO DAILY Qty: 90 1RF potassium chloride 20 mEq tablet extended release 20 meq PO DAILY Qty: 90 2RF (DME) Aerochamber MV Spacer See Rx Instructions .ROUTE .MEDSUPPLY Qty: 1 0RF Rx Instructions: to use with inhalers (DME) nebulizers [Altera Nebulizer System] Misc See Rx Instructions .Route Qty: 1 0RF Rx Instructions: As directed montelukast 10 mg tablet 10 mg PO QHS Qty: 90 1RF trazodone 100 mg tablet 100 mg PO QHS PRN (Reason: Insomnia) Qty: 90 0RF omeprazole 20 mg capsule,delayed release(DR/EC) 20 mg PO HS Qty: 90 1RF sumatriptan succinate [Imitrex] 50 mg tablet 50 mg PO ONCE PRN (Reason: migraine headache) Qty: 9 2RF spironolactone 25 mg tablet 25 mg PO QAM Qty: 90 1RF Rx Instructions: TAKE 1 TABLET BY MOUTH DAILY baclofen 20 mg tablet 20 mg PO TID Qty: 90 0RF lubiprostone [Amitiza] 24 mcg capsule 24 mcg PO BID Qty: 60 6RF cetirizine 10 mg tablet See Rx Instructions .ROUTE .COMPLEX Qty: 90 1RF Dose Instruction: TAKE 1 TABLET BY MOUTH DAILY Rx Instructions: TAKE 1 TABLET BY MOUTH DAILY furosemide 20 mg tablet See Rx Instructions .ROUTE .COMPLEX Qty: 90 1RF Dose Instruction: TAKE 1 TABLET BY MOUTH EVERY MORNING Rx Instructions: TAKE 1 TABLET BY MOUTH EVERY MORNING gabapentin 300 mg capsule See Rx Instructions .ROUTE .COMPLEX Qty: 90 1RF Dose Instruction: TAKE 1 CAPSULE BY MOUTH THREE TIMES DAILY Rx Instructions: TAKE 1 CAPSULE BY MOUTH THREE TIMES DAILY Follow-up/Referrals: Blake Lindsey MD [Primary Care Provider, Family Practice] - 3 Days Time of Disposition: 12:35
[2025-07-03 12:20] VITALS: BP 122/88; PULSE 99; RESP 22; TEMP 36.3; O2SAT 96
--- OUTSIDE RECORDS SUMMARY | 2025-07-03 12:53 | XMS_ITS | Encounter Summary ---
Author Organization [facility] Health Address [address] [place] [address] Care Team Providers Care Civil Engineering Professional Name Role Phone Blake Lindsey MD Primary Care Provider [phone] Encounter Details Date Type Department Care Team (Late st Contact Info) Description 08/01/2024 Telephone [facility] - Pulmonology [address] [place] [id number] Chapito Ortega MD [address] [place] [address] Social History Tobacco Use Types Packs/Day Years [...] degree: occupational, technical, or vocational program 07/15/2021 Comments No Sex and Gender Information Value Date Recorded Sex Assigned at Female 05/06/2024 9:07 AM CDT Legal Sex Female 5:34 PM CDT Gender Identity Female 05/06/2024 9:07 AM CDT Sexual Orientation Straight 05/06/2024 9 :07 AM CDT 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 Answer Date of Assessment Author No 01/11/2019 9:30 PM CDT Sylvia Perkins, RADHA * Is person blind or have serious difficulty seeing? Answer Date of Assessment Author Yes 01/11/2019 9:30 PM CDT Sylvia Perkins RN * Does person have serious difficulty walking/climbing stairs? Answer Date of Assessment Author Yes 01/11/2019 9:30 PM CDT Sylvia Perkins RN * Does person have difficulty dressing/bathing? Answer Date of Assessment Author No 01/11/2019 9:30 PM Sylvia Rivero RN * Does person have difficulty doing errands alone? Answer Date of Assessment Author No 01/11/2019 9:30 PM HEMANTHT Sylvia Perkins RN documented as of this encounter Mental Status * Does person have difficulty concentrating/remembering/making decisions? Answer Entry Date Author No 01/11/2019 9:30 PM Sylvia Rivero RN documented in this encounter Miscellaneous Notes * Telephone Encounter - Meera Hernandez - 08/01/2024 2:11 PM CST Current Provider: Dr. Chapito Ortega Reason for Call: Ms. Lakeisha Alejandra missed her 07/11/24 appt due to family issue. Now would like urgent appt having issues w/ bronchitus, pneumonia last 3 weeks, SOB, stated or Wednesday appt would work for her. Patient Call Back Number: [phone] MACHINE TENDER documented in this encounter Plan of Treatment Not on file documented as of this encounter Visit Diagnoses Not on filedocumented in this encounter Care Teams Civil Engineering Professional Relationship Specialty Start Date End Date Blake Lindsey MD [address] [place] [address] PCP - General 05/20/16 documented as of this encounter
--- OUTSIDE RECORDS SUMMARY | 2025-07-03 12:53 | XMS_ITS | Encounter Summary ---
Author Organization [facility] Health Address [address] [place] [address] Care Team Providers Care Yacht Rigger Name Role Phone Blake Lindsey MD Primary Care Provider [phone] Reason for Visit * Reason Onset Date Comments Results 10/05/2022 Encounter Details Date Type Department Care Team (Late st Contact Info) Description 10/05/[address] 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 Answer Date of Assessment Author No 01/11/2019 9:30 PM CDT Sylvia Perkins RN * Is person blind or have serious difficulty seeing? Answer Date of Assessment Author Yes 01/11/2019 9:30 PM CDT Sylvia Perkins RN * Does person have serious difficulty walking/climbing stairs? Answer Date of Assessment Author Yes 01/11/2019 9:30 PM CDT Dejon Perkins RN * Does person have difficulty dressing/bathing? Answer Date of Assessment Author No 01/11/2019 9:30 PM CDT Sylvia Perkins RN * Does person have difficulty doing [...] Please call patient with results of biopsy. IOLOGIST documented in this encounter Plan of Treatment Not on file documented as of this encounter Visit Diagnoses Not on filedocumented in this encounter Care Teams Yacht Rigger Relationship Specialty Start Date End Date Blake Lindsey MD [address] [place] [address] PCP - General 05/20/16 documented as of this encounter
--- OUTSIDE RECORDS SUMMARY | 2025-07-03 12:53 | XMS_ITS | Encounter Summary ---
Author Organization [facility] Health Address [address] [place] [address] Care Team Providers Care Lode Miner Blasting Name Role Phone Blake Lindsey MD Primary Care Provider [phone] Reason for Visit * Reason Onset Date Comments Appointment 06/09/2022 Encounter Details Date Type Department Care Team (Late st Contact Info) Description 06/09/2022 Telephone [facility] [address] [place] [address] Stephanie Cardona MD [address] [facility] [address] [place] [address] Appointment Social History Tobacco Use [...] 01/11/2019 9:30 PM HEMANTHT Sylvia Perkins RN * Is person blind or have serious difficulty seeing? Answer Date of Assessment Author Yes 01/11/2019 9:30 PM CDT Dejon Perkins RN * Does person have serious difficulty walking/climbing stairs? Answer Date of Assessment Author Yes 01/11/2019 9:30 PM HEMANTHT Sylvia Perkins RN * Does person have difficulty dressing/bathing? Answer Date of Assessment Author No 01/11/2019 9:30 PM Sylvia Rivero RN * Does person have difficulty doing errands alone? Answer Date of Assessment Author No 01/11/2019 9:30 PM Sylvia Rivero RN documented as of this encounter Mental Status * Does person have difficulty concentrating/remembering/making decisions? Answer Entry Date Author No 01/11/2019 9:30 PM Sylvia Rivero RN documented in this encounter Miscellaneous Notes * Telephone Encounter - Martha Lezama - 06/09/2022 3:48 PM CST Pt has referral to be seen for Basal cell adenocarcinoma RIBUTION SPEC documented in this encounter Plan of Treatment Not on file documented as of this encounter Visit Diagnoses Not on filedocumented in this encounter Care Teams Lode Miner Blasting Relationship Specialty Start Date End Date Blake Lindsey MD [address] [place] [address] PCP - General 05/20/16 documented as of this encounter
--- OUTSIDE RECORDS SUMMARY | 2025-07-03 12:53 | XMS_ITS | Encounter Summary ---
Author Organization [facility] Health Address [address] [place] [address] Care Team Providers Care Tool Grinder Operator Surface Name Role Phone Blake Lindsey MD Primary Care Provider [phone] Reason for Visit * Reason Onset Date Comments Appointment 11/10/2024 Encounter Details Date Type Department Care Team (Late st Contact Info) Description 11/10/2024 Telephone [facility] - Pulmonology [address] [place] [phone] Chapito Ortega MD [address] [place] [address] Appointment Social History Tobacco Use Types Packs/Day [...] 01/11/2019 9:30 PM CDT Sylvia Perkins RN documented as of this encounter Mental Status * Does person have difficulty concentrating/remembering/making decisions? Answer Entry Date Author No 01/11/2019 9:30 PM CDT Sylvia Perkins RN documented in this encounter Miscellaneous Notes * Telephone Encounter - Mahi Branham MA - 11/10/2024 1:25 PM CDT Called the patient multiple times to remind them about appointment. Patient did respond when called. documented in this encounter Plan of Treatment Not on file documented as of this encounter Visit Diagnoses Not on filedocumented in this encounter Care Teams Tool Grinder Operator Surface Relationship Specialty Start Date End Date Blake Lindsey MD [address] [place] [address] PCP - General 05/20/16 documented as of this encounter
--- OUTSIDE RECORDS SUMMARY | 2025-07-03 12:54 | XMS_ITS ---
Author Organization [facility] Address [address] [place] [address] Care Team Providers Care Starch And Prosize Mixer Name Role Phone Blake Lindsey MD Primary Care Provider [phone] Active Problems * This document contains information received from the source organization and may not represent a complete record from that organization. Problem Noted Date Diagnosed Date Inflamed seborrheic keratosis 03/02/2023 Actinic keratosis 03/02/2023 Neoplasm of uncertain behavior of skin 3 History of basal cell carcinoma (BCC) 10/03/2022 Multiple benign melanocytic nevi of upper and lower extremities and trunk 10/03/2022 Lentigines 10/03/2022 Seborrheic keratosis 10/03/2022 Chronic, continuous use of opioids 07/18/2021 Parotid nodule 08/22/2020 Assessment & Plan (08/22/2020 10:50 AM DETECTIVE INVESTIGATOR): Left sided parotid nodule - previously noted [...] 0 Assessment & Plan (07/11/2020 2:03 PM DETECTIVE INVESTIGATOR): Advised patient to use heat to the [...] 07/11/2020 Assessment & Plan (08/22/2020 10:46 AM DETECTIVE INVESTIGATOR): Continue with previous recommendations. Patient states she has been compliant. Follow up as needed Assessment & Plan (07/11/2020 1:57 PM DETECTIVE INVESTIGATOR): Patient states she has a history of [...] am, 30 mg pm, well controlled Current Treatment and Therapy Plans No current plan information found. Past Treatment and Therapy Plans No past plan information found. Lifetime Dose Tracking * Chemical Lifetime Dose Automatic Entry Manual Entr y Dose Length Product 1,704 mGy-cm 1,704 mGy-cm 0 mGy-cm
--- OUTSIDE RECORDS SUMMARY | 2025-07-03 12:54 | XMS_ITS | Clinical Summary ---
Author Organization [facility] Address [address] [place] [address] Phone Care Team Providers Care Public Address System Operator Name Role Phone Unavailable Primary Care Provider Unavailabl e Social History Tobacco Use Types Packs/Day Years Used Date Smoking Tobacco: Never Assessed Comments Unknown Sex and Gender Information Value Date Recorded Sex Assigned at Not on file Legal Sex Female 12:45 PM ITEM PROCESSING CLERK Gender Identity Not on file Sexual Orientation Not on file Plan of Treatment Health Maintenance Due Date Last Done Comments Hepatitis C Virus (HCV) Screening 1968 TdaP Immunization 1968 Hepatitis B Immunization (1 of 3 - 19+ 3-dose series) 11/23/1987 Pap Smear 1989 Cervical Cancer Screening (CCS) 1998 HPV/Cotest 1998 Cologuard 2013 Colonoscopy 2013 Colorectal Cancer Screening 2013 Immunochemical Fecal Occult Blood 2013 Pneumococcal Immunization (5 0+ years) (1 of 1 - PCV) 2018 Zoster Immunization (1 of 2) 2018 Influenza Immunization (#1) 2025 SARS-COV-2 Immunization ( - 2023- season) 2025 Respiratory Syncytial Virus (RSV) Immunization (Adult) (1 - 1-dose 75+ series) 11/23/2043 Human Papillomavirus (HPV) Immunization Aged Out No longer eligible b ased on patient's age to complete this topic Meningococcal Immunization (ACWY) Aged Out No longer eligible based on patient's age to complete this topic Rotavirus Immunization Aged Out No lo nger eligible based on patient's age to complete this topic
--- OUTSIDE RECORDS SUMMARY | 2025-07-03 12:54 | XMS_ITS | Clinical Summary ---
Author Organization [facility] Address [address] [place] [address] Care Team Providers Care Sheet Sewer Name Role Phone Blake Lindsey MD Primary Care Provider [phone] Source Comments [facility],non-owned Affiliates and Associated Physician Practices is amultiple site organization consisting of ambulatory clinics and hospital sitesin [place], [place], [place] and [place]. This disclosure is being madepursuant to the Care Everywhere program and may not contain all information available regarding this patient. Last updated 18.[facility] Allergies Active Allergy Reactions Criticality Noted Date Comments Amoxicillin Rash Medium 02/19/2019 Codeine Other Low 11/03/2012 Passes out, Passes out Epinephrine Other Low 11/03/2012 When injected in mouth for dental procedures, makes extremities go numb Patient metabolizes medication quickly Penicillins Rash Medium 11/03/2012 Medications * This document contains information received from the source organization and may not represent a complete record from that organization. * Be aware that medications may not be up to date on this document. Alwaysverify current medications with the patient. albuterol (PROVENTIL;MAIK JANEL) (2.5 MG/3ML) 0.083% nebulizer solutionIndicati ons:Bronchospast ic Disease INHALE 3 ML BY NEBULIZATION 3 TIMES DAILY Reasons: Disease Involving Spasms of the Bronchus 1 vial 01/13/20 19 Active Additional Information Patient taking differently: 2.5 mg Inhalation 3 TIMES DAILY PRN, shortness of breath, wheezing, INHALE 3 ML BY NEBULIZATION 3 TIMES DAILY, Indications: Bronchospastic Disease, Reported on 06/09/2022 QUEtiapine (SEROQUEL) 100 MG tabletIndication s:Major Depressive Disorder Take 1 tablet by mouth at bedtime Reasons: Major Depressive Disorder 30 tablet 01/13/20 19 Active furosemide (LASIX) 20 MG tabletIndication s:Edema Take 1 tablet by mouth once daily Reasons: Edema 30 tablet 01/13/20 19 Active SUMAtriptan (IMITREX) 50 MG tabletIndication s:Migraine Take 1 tablet by mouth once as needed for Migraine Maximum daily dose: 200mg/24 hours Reasons: Migraine Headache 30 tablet 01/13/20 19 Active NYSTOP [id number] UNIT/GM powder Apply 1 Dose to affected area as directed 1 03/06/20 19 Active potassium chloride ER (KLOR-CON) 20 MEQ tablet Take 1 (one) tablet by mouth once daily 0 04/05/20 19 Active spironolactone (ALDACTONE) 25 MG tablet Take 1 (one) tablet by mouth once daily 2 03/09/20 19 Active ondansetron (ZOFRAN) 4 MG tablet Take 1 (one) tablet by mouth as needed for Nausea/Vomiting 04/17/20 20 Active montelukast (SINGULAIR) 10 MG tablet Take 1 (one) tablet by mouth once daily 06/21/20 20 Active gabapentin (NEURONTIN) 300 MG capsule Take 1 (one) capsule by mouth 3 times daily 06/04/20 20 Active cetirizine (ZYRTEC) 10 MG tablet Take 1 (one) tablet by mouth once daily as needed 04/17/20 20 Active traZODone (DESYREL) 50 MG tablet Take 1 (one) tablet by mouth nightly as needed for Insomnia 06/26/20 20 Active baclofen (LIORESAL) 20 MG tablet Take 1 (one) tablet by mouth as directed 08/20/19 21 Active escitalopram (LEXAPRO) 20 MG tablet Take 1 (one) tablet by mouth once daily 07/19/20 20 Active omeprazole (PRILOSEC) 20 MG capsule Take 1 (one) capsule by mouth once daily 08/09/19 21 Active mupirocin (BACTROBAN) 2 % ointment Apply to affected area 3 times daily To bilateral nares 22 g 1 03/17/20 21 Active lubiprostone (Amitiza) 24 MCG capsule Take 1 (one) capsule by mouth 2 times daily with morning and evening meal Active atorvastatin (LIPITOR) 10 MG tablet Take 1 (one) tablet by mouth at bedtime 01/17/20 21 Active buPROPion XL 24hr (WELLBUTRIN-XL) 150 MG tablet Take 1 (one) tablet by mouth once daily 12/17/19 21 Active prazosin (MINIPRESS) 1 MG capsule Take 1 (one) capsule by mouth as directed 02/26/20 21 Active ascorbic acid (VITAMIN C) 500 MG tabletIndication s:Iron deficiency anemia, unspecified iron deficiency anemia type Take 1 (one) tablet by mouth once daily Take 1 tablet at the same time as your ferrous sulfate (iron tablet). 90 tablet 3 08/14/19 22 Active FeroSul 325 (65 Fe) MG tabletIndication s:Iron deficiency anemia, unspecified iron deficiency anemia type TAKE 1 TABLET BY MOUTH ONCE DAILY, TAKE AT TGHE SAME TIME YOUR VITAMIN TABLET 90 tablet 3 04/08/20 22 Active Additional Information Patient not taking.Reported on 12/22/2023 Nurtec 75 MG tablet Take 75 mg by mouth as directed 07/14/20 22 Active Xtampza ER 13.5 MG capsule Take 1 (one) capsule by mouth every 12 hours 07/27/20 22 Active QUEtiapine (SEROquel) 50 MG tablet Take 1 (one) tablet by mouth at bedtime 07/20/20 22 Active traZODone (Desyrel) 100 MG tablet Take 1 (one) tablet by mouth nightly as needed 07/20/20 22 Active Movantik 25 MG tablet 09/09/19 23 Active Vitamin D3 (Cholecalciferol ) 50 MCG (1999 UT) capsuleIndicatio ns:Vitamin D deficiency TAKE 1 CAPSULE BY MOUTH EVERY DAY 90 capsule 3 08/31/19 24 Active nitrofurantoin monohyd macro crystals (Macrobid) 100 MG capsule Take 1 (one) capsule by mouth 2 times daily with morning and evening meal 06/26/20 23 Active ondansetron, disintegrating, (Zofran ODT) 4 MG tablet Take 1 (one) tablet by mouth every 8 hours as needed 12/07/19 24 Active phentermine (Adipex-P) 37.5 MG tablet Take 1 (one) tablet by mouth once daily 12/12/19 24 Active predniSONE (Deltasone) 10 MG tablet Take 1 (one) tablet by mouth once daily 10/22/19 24 Active silver sulfADIAZINE (Silvadene) 1 % cream Apply to affected area once daily 05/14/20 23 Active predniSONE (Deltasone) 20 MG tablet Take 2 (two) tablets by mouth once daily 10 tablet 04/11/20 24 Active fluticasone-umec lidin-vilant (Trelegy Ellipta) 200-62.5-25 MCG/ACT inhaler Inhale 1 (one) puff by mouth once daily 60 Each 3 04/11/20 24 Active levalbuterol (Xopenex) 0.31 MG/3ML nebulizer solution Inhale 3 mL by mouth every 8 hours as needed for Shortness of Breath or Wheezing 270 mL 4 04/11/20 24 Active dupilumab (Dupixent) 300 MG/2ML prefilled pen Inject 2 mL subcutaneously every 14 days 2 mL 11/03/19 25 Active Active Problems Problem Noted Date Diagnosed Date Inflamed seborrheic keratosis 03/02/2023 Actinic keratosis 03/02/2023 Neoplasm of uncertain behavior of skin 3 History of basal cell carcinoma (BCC) 10/03/2022 Multiple benign melanocytic nevi of upper and lower extremities and trunk 10/03/2022 Lentigines 10/03/2022 Seborrheic keratosis 10/03/2022 Chronic, continuous use of opioids 07/18/2021 Parotid nodule 08/22/2020 Assessment & Plan (08/22/2020 10:50 AM RESEARCH FELLOW): Left sided parotid nodule - previously noted [...] 0 Assessment & Plan (07/11/2020 2:03 PM RESEARCH FELLOW): Advised patient to use heat to the [...] 07/11/2020 Assessment & Plan (08/22/2020 10:46 AM RESEARCH FELLOW): Continue with previous recommendations. Patient states she has been compliant. 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[employer] Not on file Not on file Not on f ile Last Filed Vital Signs Vital Sign Reading Time Taken Comments Blood Pressure 109/77 10/31/2024 4:03 PM CDT Pulse 86 10/31/2024 4:03 PM CDT Temperature 36.9 C (98.4 F) 10/31/2024 4:03 PM CDT Respiratory Rate 17 10/31/2024 4:03 PM CDT Oxygen Saturation 94% 10/31/2024 4:03 PM CDT Inhaled Oxygen Concentration - - Weight 102.6 kg (226 lb 3.2 oz) 10/31/2024 4:03 PM CDT Height 157.5 cm (5' 2) 10/31/2024 4:03 PM CDT Body Mass Index 41.37 10/31/2024 4:03 PM CDT Plan of Treatment Health Maintenance Due Date Last Done Comments COLOGUARD (AGES 45-75) - COLON CA SCREENING 1968 COLON MONITORING 1968 COLONOSCOPY - COLON CA SCREENING 1968 CT COLONOGRAPHY - COLON CA SCREENING 1968 Colorectal Cancer Screening 1968 FIT - COLON CA SCREENING 1968 FLEX SIG - COLON CA SCREENING 1968 MEDICARE AWV 12 MONTHS 1968 Opioid Medication Agreement - Annual 1968 HEPATITIS B VACCINE (1 of 3 - 19+ 3-dose series) 11/23/1987 ZOSTER VACCINE (1 of 2) 11/23/1987 PAP SMEAR 1989 Cervical Cancer Screening 1998 PAP with HPV 1998 Opioid Medication Urine Drug Screening 01/12/2020 01/11/2019, 11/24/2018, 08/21/2018, Additional history exists MAMMOGRAM 11/28/2020 11/28/2018 DEPRESSION SCREENING 08/02/2024 COVID-19 VACCINE ( season) 2025 04/30/2021, 03/31/2021 INFLUENZA VACCINE (#1) 2025 1, 04/05/2019, 04/05/2019, Additional history exists SCREENING [...] complete this topic MENINGOCOCCAL (Group B) VACCINE SHARED DECISION-MAKING Aged Out No longer eligible based on patient's age to complete this topic MENINGOCOCCAL GROUPS A/C/Y/W VACCINE Aged Out No longer eligible based on patient's age to complete this topic Procedures Procedure Name Priority Date/Time Associated Diagnosis Comments HIV-1 HIV-2 ANTIBODY + HIV P24 AG PANEL Routine 04/11/2024 4:[address] of the chest COMPREHENSIVE METABOLIC PANEL STAT 06/09/2022 3:46 PM RESEARCH FELLOW Hodgkin lymphoma, unspecified Hodgkin lymphoma type, unspecified body region URINE DRUG SCREEN IMMUNOASSAY STAT 01/11/2019 3:03 [...] 6:04 PM CDT [facility] Comment:No Laboratory eviden ce of HIV infection. Blood BLOOD SPECIMEN / Unknown Lab Venipuncture / Unknown 04/11/2024 4:52 PM CDT 04/11/2024 5:32 PM CDT Don Manuel MD LAB - CHEMISTRY ORDERABLES Fin al Result [facility] [address] [place] [id number], [facility] [phone] * (ABNORMAL) COMPREHENSIVE METABOLIC PANEL (06/09/2022 3:46 PM RESEARCH FELLOW) Pathologist [facility] BUN 12 7 - 26 mg/dL 06/09/2022 [...] Lab Venipuncture / Unknown 06/09/2022 3:46 PM RESEARCH FELLOW 06/09/2022 4:02 PM [facility] us Ashish Peralta MD LAB - CHEMISTRY ORDERABLES Coco askew Result Performing Organization Address City/State/[facility] Co de Phone Number [facility] [address] [place] [phone] [phone] * (ABNORMAL) DRUG SCREEN TOX URINE PANEL (01/11/2019 3:03 PM CDT) [facility] Amphetamines Screen Urine Negative Negative : < 1000 ng/mL 01/11/2019 3:33 PM [facility] Barbiturates Screen Urine Negative Negative : < 200 ng/mL 01/11/2019 3:33 PM [facility] Benzodiazepine Screen Urine Negative Negative : < 200 ng/mL 01/11/2019 3:33 PM [facility] Opiates Urine Negative Negative : < 300 ng/mL 01/11/2019 3:33 PM T [facility] Cocaine Metabolites Urine Negative Negative : < 300 ng/mL 01/11/2019 3:33 PM T [facility] Phencyclidine Screen Urine Negative Negative : < 25 ng/ml 01/11/2019 3:33 PM CDT [facility] Cannabinoids Screen Urine Positive(A) Negative : <50 ng/mL 01/11/2019 3:33 PM T [facility] Comment: Positive urine cannabinoids (THC) screening results should be confirmed by another generally accepted non-immunological method such as gas chromatography or mass spectrometry. Methadone Screen Urine Negative Negative : < 300 ng/mL 01/11/2019 3:33 PM T [facility] Urine URINE / Unknown Collection / Unknown 01/11/2019 3:03 PM CDT 01/11/2019 3:10 PM CDT Narrative [facility] - 01/11/2019 3:33 PM CDT The Urine Toxicology Screening Panel does not screen for Propoxyphene, Meprobamate, Carisoprodol, Trazodone, nqmu-[id number] medications and/or volatiles (Acetone, Isopropanol, Methanol or Ethylene Glycol). Ethanol, Salicylate, Acetaminophen, Tricyclic Antidepressants and several therapeutic drugs may be individually assayed in serum or plasma specimen. Toxicology testing by the [facility] is an aid to medical diagnosis and treatment of patients. No documented chain of custody was maintained. Results are intended to be used for clinical purposes only. Kain Wellington MD LAB - URINE CHEMISTRY ORDERABL ES Final Result [facility] [address] [place] [address] * MAMMO BILAT DIAGNOSTIC (11/28/2018 2:20 PM CDT) Anatomical Region Laterality Modality Breast Bilateral Mammography 11/28/2018 2:21 PM CDT Impressions 11/28/2018 2:23 PM CDT IMPRESSION: No mammographic or sonographic evidence of malignancy. BI-RADS category 1, negative mammogram. RECOMMENDATION: Routine annual screening mammograms are recommended. This report was electronically signed by LEOBARDO BOYD M.D. on 11/28/2018 2:23 PM . Narrative 11/28/2018 2:23 PM CDT Bilateral diagnostic mammography. Targeted left breast ultrasound. Date: 11/28/2018 Comparison: No comparisons are available, prior mammograms are over 10 years old. History: The patient is a 48-year-old female with history of Hodgkin's lymphoma who has noticed palpable lumps within the inferior left breast. Technique: The breasts were imaged in multiple views using 3D tomosynthesis with reconstructed/synthetic images and CAD analysis. Targeted ultrasound was also performed. Findings: Mammogram: No suspicious mass, grouped microcalcification, or architectural distortion is seen within either breast. Normal-appearing small intramammary lymph nodes are noted within the upper outer breasts bilaterally. Breast parenchymal density: The breasts are almost entirely fatty. Ultrasound: Targeted high-resolution sonography and digital palpation was performed by personal injury attorney and physician throughout the inferior left breast. Multiple mobile lumps identified in this region on palpation correspond to fat lobules. No suspicious mass or dominant cyst is seen. This examination was subjected to CAD analysis. The results of this examination were discussed with the patient by Dr. Boyd. us Castillo Max MD MAMMO ORDERABLES Final Res ult * HEPATITIS C AB SCREEN RFLX PCR QUANT (04/18/2017 3:51 AM CDT) Hepatitis C Antibody Non-react [facility] Comment: Hepatitis C Antibody screen indicates no serologic evidence of past or current infection with Hepatitis C Virus. Patients with unexplained liver disease who are immunocompromised or suspected of having acute Hepatitis C infection may benefit from Nucleic Acid Test (EDGAR) for Hepatitis C Viral RNA to confirm Hepatitis C status. BLOOD SPECIMEN / Unknown 04/18/2017 3:51 AM CDT 04/18/2017 4:16 AM CDT us Yanelis Alas MD LAB - CHEMISTRY ORDERABLES Fi nal Result [facility] [address] [place] [address] from Last 3 Months or Most Recently Relevant to Health Maintenance Insurance MEDICARE MEDICAID - OUT OF STATE Advance Directives * Full Code (Latest Code Status on File) Date Activated Date Inactivated Comments 01/11/2019 7:38 PM 01/12/2019 3:03 PM Care Teams Sheet Sewer Relationship Specialty Start Date End Date Blake Lindsey MD [address] [place] [address] PCP - General 05/20/16
== END 2025-07-03 12:37 | disposition home or self-care (01) ==
PROVIDERS: Emergency Provider Nurse Practitioner Family; PCP Family Medicine
DX: J40 Bronchitis, not specified as acute or chronic (principal); J44.9 Chronic obstructive pulmonary disease, unspecified; K21.9 Gastro-esophageal reflux disease without esophagitis; M16.12 Unilateral primary osteoarthritis, left hip; Z87.891 Personal history of nicotine dependence; Z85.828 Personal history of other malignant neoplasm of skin
CPT/HCPCS: 71046; 99213; G0463